=== PATIENT | male | born 1940 | race African-American/Black ===

== ENCOUNTER 2016-06-20 18:44 | Inpatient (IN) | payer MEDICARE ==
[~2016-06-20] VITALS: Ht 188 cm; Wt 89.0 kg
[~2016-06-20 18:44] MED LIST: ATOR20TA58 PO; ATOR40TA59 PO; CEPH500C PO; DILT240C32 PO; GUAI600T38 PO; INSU100I17 SQ; INSU100I27 SQ; ISOS60TA2 PO; Insulin Detemir SQ; LEVO500T38 PO; LEVO750T31 PO; METF500T4 PO; NITR0.4T6 SL; NPH,100V4 SQ; PROM118S2 PO
[2016-06-20] MEDS ORDERED: IV NORMAL SALINE 1000ML BAG 1,000 ML IV SCH (19:23)
--- NOTE | 2016-06-20 19:26 | ED.ADGEN ---
Past Medical History Past Medical History: Asthma, Bronchitis, CAD, COPD, Diabetes-Type II, High Cholesterol, Hypertension, Pneumonia Past Surgical History: Other Additional Past Surgical Histo: "lung surgery" Alcohol Use: None Drug Use: None Adult General Chief Complaint Chief Complaint: SHORTNESS OF BREATH HPI HPI Patient is a 75 year old male presents emergency department by EMS for increasing dyspnea. Patient reports he has had several "sick spells" over the last several mornings. Today after mormon he began to notice he was significantly more short of air. He denies any fevers or chills. Denies any nausea, vomiting, chest pain. He tells the last time he was on steroids was when he had his pneumonia approximately 6 months ago. He reports improvement based on the breathing treatment he received by EMS. Review of Systems Review of Systems Constitutional: Denies fever or chills. [] Eyes: Denies change in visual acuity. [] HENT: Denies nasal congestion or sore throat. [] Respiratory: Denies cough or shortness of breath. [] Cardiovascular: Denies chest pain or edema. [] GI: Denies abdominal pain, nausea, vomiting, bloody stools or diarrhea. [] : Denies dysuria. [] Musculoskeletal: Denies back pain or joint pain. [] Integument: Denies rash. [] Neurologic: Denies headache, focal weakness or sensory changes. [] Endocrine: Denies polyuria or polydipsia. [] Lymphatic: Denies swollen glands. [] Psychiatric: Denies depression or anxiety. [] Current Medications Current Medications Current Medications Medications (Trade) Dose Ordered Sig/Ann Marie Start Time Stop Time Status Last Admin Dose Admin Albuterol/ Ipratropium (Duoneb) 3 ml 1X ONCE 06/20/16 19:30 06/20/16 19:31 DC 06/20/16 19:48 3 ML Methylprednisolone Sodium Succinate (Solu-Medrol 125mg Vial) 125 mg 1X ONCE 06/20/16 19:30 06/20/16 19:31 DC 06/20/16 20:00 125 MG Ondansetron HCl (Zofran) 4 mg 1X ONCE 06/20/16 20:15 06/20/16 20:16 DC 06/20/16 20:30 4 MG Sodium Chloride (Iv Sodium Chloride 0.9% 1000ml Bag) 1,000 ml @ 1,000 mls/hr Q1H 06/20/16 19:23 06/20/16 20:22 DC 06/20/16 20:00 1,000 MLS/HR Allergies Allergies Allergies Coded Allergies Type Severity Reaction Last Updated Verified No Known Drug Allergies 10/31/13 No Physical Exam Physical Exam Constitutional: Well developed, well nourished, no acute distress, non-toxic appearance. [] HENT: Normocephalic, atraumatic, bilateral external ears normal, oropharynx moist, no oral exudates, nose normal. [] Eyes: PERRLA, EOMI, conjunctiva normal, no discharge. [] Neck: Normal range of motion, no tenderness, supple, no stridor. [] Cardiovascular:Heart rate regular rhythm, no murmur [] Lungs & Thorax: Bilateral breath sounds diminished and coarse [] Abdomen: Bowel sounds normal, soft, no tenderness, no masses, no pulsatile masses. [] Skin: Warm, dry, no erythema, no rash. [] Back: No tenderness, no CVA tenderness. [] Extremities: No tenderness, no cyanosis, no clubbing, ROM intact, no edema. [] Neurologic: Alert and oriented X 3, normal motor function, normal sensory function, no focal deficits noted. [] Psychologic: Affect normal, judgement normal, mood normal. [] Current Patient Data Vital Signs Vital Signs Date Time Temp Pulse Resp B/P Pulse Ox O2 Delivery O2 Flow Rate FiO2 06/20/16 20:17 106 156/111 93 Nasal Cannula 2 06/20/16 18:44 98.2 22 98.2 Lab Values Laboratory Tests Test 06/20/16 19:44 White Blood Count 5.9x10^3/uL (4.0-11.0) Red Blood Count 4.45x10^6/uL (4.30-5.70) Hemoglobin 12.3g/dL (13.0-17.5) L Hematocrit 38.1% (39.0-53.0) L Mean Corpuscular Volume 86fL (79-100) Mean Corpuscular Hemoglobin 28pg (25-35) Mean Corpuscular Hemoglobin Concent 32g/dL (31-37) Red Cell Distribution Width 14.5% (11.5-14.5) Platelet Count 268x10^3/uL (140-400) Neutrophils (%) (Auto) 75% (31-73) H Lymphocytes (%) (Auto) 16% (24-48) L Monocytes (%) (Auto) 7% (0-9) Eosinophils (%) (Auto) 1% (0-3) Basophils (%) (Auto) 1% (0-3) Neutrophils # (Auto) 4.5x10^3uL (1.8-7.7) Lymphocytes # (Auto) 0.9x10^3/uL (1.0-4.8) L Monocytes # (Auto) 0.4x10^3/uL (0.0-1.1) Eosinophils # (Auto) 0.1x10^3/uL (0.0-0.7) Basophils # (Auto) 0.0x10^3/uL (0.0-0.2) Laboratory Tests 06/20/16 19:44 EKG EKG [] Radiology/Procedures Radiology/Procedures Chest x-ray interpreted by me, no acute cardiopulmonary process. [] Course & Med Decision Making Course & Med Decision Making Pertinent Labs and Imaging studies reviewed. (See chart for details) Although the patient reports he is noticed some relief after his breathing treatments and his Solu-Medrol he does still require a couple liters of oxygen. He feels like he could benefit from a night in the hospital. I agree. He will be admitted to the hospitalist service with pulmonary hygiene and pulmonary consult. [] Dragon Disclaimer Dragon Disclaimer This electronic medical record was generated, in whole or in part, using a voice recognition dictation system. JESSICA HORNE MD Jun 20, 2016 19:26
[2016-06-20] MEDS ORDERED: methylPREDNISolone SOD SUCC PF 125 MG/2 ML VIAL. IV ONE (19:30)
[2016-06-20] MEDS ORDERED: IPRATRPIUM/ALBUTEROL 0.5/2.5MG 3 ML NEBU. NEB ONE (19:30)
[2016-06-20 19:52] LABS: BASO % 1 % (0-3); EOS % 1 % (0-3); HEMATOCRIT 38.1 % (39.0-53.0); HEMOGLOBIN 12.3 g/dL (13.0-17.5); LYMPH # 0.9 x10^3/uL (1.0-4.8); LYMPH % 16 % (24-48); MEAN CORPUSCULAR HEMOGLOBIN 28 pg (25-35); MEAN CORPUSCULAR HGB CONC 32 g/dL (31-37); MEAN CORPUSCULAR VOLUME 86 fL (79-100); MONO % 7 % (0-9); NEUT % 75 % (31-73); PLATELET COUNT 268 x10^3/uL (140-400); RED BLOOD COUNT 4.45 x10^6/uL (4.30-5.70); RED CELL DISTRIBUTION WIDTH 14.5 % (11.5-14.5); WHITE BLOOD COUNT 5.9 x10^3/uL (4.0-11.0)
[2016-06-20] MEDS ORDERED: ONDANSETRON PF 4 MG/2 ML VIAL. IV ONE (20:15)
[2016-06-20] MEDS ORDERED: ONDANSETRON PF 4 MG/2 ML VIAL. IV PRN (21:00)
--- NOTE | 2016-06-20 21:02 | ACF ---
Admission Forms Criteria GENERAL ADMISSION CRITERIA (Place 'X' for any and all applicable criteria): Admission is indicated for ANY ONE of the following: [ ]I. Hemodynamic instability as indicated by ANY ONE of the following(1)(2) (3)(4)(5): [ ]a) Vital sign abnormality not readily corrected by appropriate treatment within 12 to 24 hours indicated by ANY ONE of the following: [ ]i) Hypotension [ ]ii) Symptomatic Tachycardia unresponsive to treatment (eg , analgesia, fluids, sedation as indicated) [ ]iii) Orthostatic vital sign changes unresponsive to treatment (eg, fluids) [ ]b) Vital sign abnormality that is severe indicated by ANY ONE of the following: [ ]i) Inadequate perfusion indicated by ANY ONE of the following: [ ]1) Lactic acidosis (greater than 2 mmol/L) [ ]2) New abnormal capillary refill (greater than 3 seconds) [ ]3) Other metabolic acidosis (arterial pH less than 7.35) not otherwise explained [ ]4) Reduced urine output [ ]5) Altered mental status [ ]6) Myocardial Ischemia [ ]v) Mean arterial pressure[A] less than 60 mm Hg [ ]vi) Mean arterial pressure[A] less than 70 mm Hg after 30 minutes of appropriate treatment (eg, fluid resuscitation) [ ]vii) IV inotropic or vasopressor medication required to maintain adequate blood pressure or perfusion [ ]viii) Sustained heart rate greater than 120 beats per minute in adult or child 6 years or older[B]] [ ]II. Hypertension requiring inpatient treatment as indicated by ANY ONE of the following(6)(7)(8): [ ]a) SBP greater than 220 mm Hg or DBP greater than 120 mm Hg despite treatment [ ]b) SBP greater than 140 mm Hg or DBP greater than 100 mm Hg with evidence of acute end organ damage as indicated by ANY ONE of the following: [ ]i) Encephalopathy [ ]ii) Acute renal failure as indicated by new onset of ANY ONE of the following(9)(10)(11)(12)(13): [ ]1) A 3-fold rise in serum creatinine from baseline [ ]2) Serum creatinine greater than 4 mg/dL ( 354 micromoles/L) with acute rise greater than 0.5 mg/dL (44.2 micromoles/L) [ ]3) Reduction of more than 75% in estimated glomerular filtration rate from baseline [ ]4) Estimated glomerular filtration rate less than 35 mL/min/1.73m2 (0.59 mL/sec/1.73m2) in child up to 18 years of age [ ]5) Cessation of urine output indicated by ALL of the following: [ ]A. Adequate volume status [ ]B. Inadequate urine output as indicated by ANY ONE of the following: [ ]a. Urine output less than 0.3 mL/kg/hr for 24 hours [ ]b. Anuria (urine output less than 0.1 mL/kg/hr) for 12 hours [ ]iii) Aortic dissection [ ]iv) Myocardial ischemia [ ]v) Left ventricular heart failure [ ]vi) Retinal hemorrhage [ ]vii) Other significant finding [ ]c) Hypertension in child requiring inpatient treatment as indicated by ALL of the following(14)(15)(16): [ ]i) Outpatient treatment not effective, not available, or not appropriate [ ]ii) SBP or DBP greater than 95th percentile for age [ ]iii) Evidence of acute end organ damage as indicated by ANY ONE of the following: [ ]1) Altered mental status [ ]2) Acute renal failure as indicated by new onset of ANY ONE of the following(9)(10)(11)(12)(13): [ ]A. A 3-fold rise in serum creatinine from baseline [ ]B. Serum creatinine greater than 4 mg/dL (354 micromoles/L) with acute rise greater than 0.5 mg/dL (44.2 micromoles/L) [ ]C. Reduction of more than 75% in estimated glomerular filtration rate from baseline [ ]D. Estimated glomerular filtration rate less than 35 mL/min/1.73m2 (0.59 mL/sec/1.73m2)in child up to 18 years of age [ ]E. Cessation of urine output indicated by ALL of the following: [ ]a. Adequate volume status [ ]b. Inadequate urine output as indicated by ANY ONE of the following: [ ]1) Urine output less than 0.3 mL/kg/hr for 24 hours [ ]2) Anuria (urine output less than 0.1 mL/kg/hr) for 12 hours [ ]3) Severe headache [ ]4) Visual disturbance [ ]5) Retinal hemorrhage [ ]6) Other significant finding [ ]III. Acute cardiac or peripheral ischemia as indicated by ANY ONE of the following: [ ]a) Acute coronary syndrome(17)(18) [ ]b) Acute peripheral ischemia (eg, pulseless, cool, mottled, or cyanotic extremity)(19) [ ]IV. Cardiac arrhythmias or findings of immediate concern indicated by ANY ONE of the following(20)(21): [ ]a) Heart rhythms that are inherently dangerous or unstable indicated by ANY ONE of the following(22)(23)(24): [ ]i) Resuscitated ventricular fibrillation or cardiac arrest [ ]ii) Ventricular escape rhythm [ ]iii) Sustained ventricular tachycardia (30 seconds or more of ventricular rhythm at greater than 100 beats per minute) [ ]iv) Nonsustained ventricular tachycardia and ANY ONE of the following: [ ]1) Suspected cardiac ischemia as cause or consequence of ventricular tachycardia [ ]2) In setting of acute myocarditis [ ]b) Unstable cardiac conduction defects indicated by ANY ONE of the following(24)(25)(26): [ ]i) Type II second-degree atrioventricular block [ ]ii) Third-degree atrioventricular block [ ]iii) New-onset left bundle branch block with suspected myocardial ischemia [ ]c) Any heart rhythm and ANY ONE of the following(22)(23)(27)(28)( 29): [ ] i) Continuous long-term ECG monitoring needed (eg, initiation of drug requiring monitoring for more than 24 hours) [ ] ii) Patient has automatic implanted cardioverter defibrillator that is repeatedly firing, malfunctioning, or in need of immediate adjustment of settings beyond the scope of ambulatory or observation care. [ ]d) Heart rhythms of concern due to ANY ONE of the following: [ ]i) Hypotension [ ]ii) Respiratory distress [ ]iii) Association with other significant symptoms (eg, bradycardia with syncope or ongoing dizziness, supraventricular tachycardia with chest pain) (27)(28) (30) [ ] V. Severe heart failure as indicated by ANY ONE of the following ( 31)(32): [ ]a) Respiratory distress [ ]b) Hypotension [ ]c) Anasarca (refractory to outpatient therapy) [ ]d) Cardiac arrhythmias of immediate concern [ ]e) Myocardial ischemia [X]. Respiratory abnormalities, including ANY ONE of the following(33)(34) (35)(36): [ ]a) Respiratory rate greater than 30 breaths per minute unresponsive to treatment [A] [ ]b) New saturation of arterial oxygen less than 90% [ ]c) New partial pressure of carbon dioxide greater than 44 mm Hg ( 5.9 kPa) [X]d) Supplemental oxygen or respiratory treatments needed that are new or not performable at other levels of care [ ]e) New-onset cyanosis [ ]f) Inability to protect airway [ ]g) Chronic lung disease with severe deterioration (not responsive to emergency and observation care treatment as appropriate) as indicated by ANY ONE of the following(34)(36 ): [ ]i) SaO2 5% below baseline in patient with chronic hypoxemia [ ]ii) New requirement for supplemental oxygen to keep SaO2 at baseline or acceptable level [ ]iii) Required supplemental oxygen performable only in acute inpatient setting [ ]iv) Severe airflow or ventilation abnormalities [ ]v) Previously mobile patient unable to walk between rooms [ ]vi Inability to eat or sleep due to dyspnea [ ]vii) Rapid rate of exacerbation onset [ ]viii) Altered mental status ]VII. Severe airflow or ventilation abnormalities (not responsive to emergency and observation care treatment as appropriate) as indicated by ANY ONE of the following(33)(34)(35)(37): [ ]a) PCO2 greater than 42 mm Hg (5.6 kPa) and pH less than 7.35 (new ) [ ]b) Documented PCO2 increased more than 5 mm Hg (0.7 kPa) from disease baseline [ ]c) Airflow measurements [B] less than 60% of previous best or predicted (eg, peak expiratory flow rate less than 300 L/minute) despite intensive emergent treatment [C] [ ]d) Required respiratory treatments that are performable only in acute inpatient setting [ ]VIII. Impending or actual respiratory arrest ( Also use Respiratory Failure GRG for severe respiratory disease and long-term mechanical ventilation patients) [ ]IX. Neurologic abnormalities, including ANY ONE of the following: [ ]a) New findings that suggest ANY ONE of the following: [ ]i) CANCELLATION CLERK infection(38) [ ]ii) Cerebral bleeding, ischemia, or vasospasm(39)(40) [ ]iii) Increased intracranial pressure, hydrocephalus, or cerebral edema(41)(42)(43) [ ]iv) Spinal cord injury(44) [ ]b) Uncontrolled seizures(45) [ ]c) New-onset coma (eg, Eda coma scale score less than 9) or unexplained abnormal mental status (eg, Eda coma scale score less than 14) [D](41)(46)(47) [ ]X. New-onset severe neurologic findings requiring inpatient care; examples include(42)(48)(49): [ ]a) Papilledema [ ]b) Cerebral edema [ ]c) Mass effect on CT scan [ ]XI. Suspected acute intra-abdominal process with peritoneal signs, abdominal mass, or similar findings (50)(51)(52) [ ]XII. Severe physiologic disorder remaining after emergency or observation level care (as appropriate) as indicated by ANY ONE of the following (53): [ ]a) Significant dehydration [ ]b) Diabetic ketoacidosis [ ]c) Hyperglycemic hyperosmolar state (eg, osmolality greater than 320 mOsm/kg (mmol/kg) [ ]d) Hypoglycemia [ ]e) Other (new) acid-base disorder with pH less than 7.35 or greater than 7.5(54) [ ]f) Thyroid storm (55) [ ]g) Myxedema coma (55) [ ]XIII. Abdominal abnormalities with ANY ONE of the following(56)(57): [ ]a) Absent bowel sounds with complete ileus [ ]b) Signs of intestinal obstruction or peritonitis [E] [ ]c) Nausea and vomiting that cannot be controlled with outpatient or observation care [ ]XIV. Acute renal failure as indicated by new onset of ANY ONE of the following(9)(10)(11)(12)(13): [ ]a) A 3-fold rise in serum creatinine from baseline [ ]b) Serum creatinine greater than 4 mg/dL (354 micromoles/L) with acute rise greater than 0.5 mg/dL (44.2 micromoles/L) [ ]c) Reduction of more than 75% in estimated glomerular filtration rate from baseline [ ]d) Estimated glomerular filtration rate less than 35 mL/min/ 1.73m2 (0.59 mL/sec/1.73m2) in child up to 18 years of age [ ]e) Cessation of urine output indicated by ALL of the following: [ ]i) Adequate volume status [ ]ii) Inadequate urine output as indicated by ANY ONE of the following: [ ]1) Urine output less than 0.3 mL/kg/hr for 24 hours [ ]2) Anuria (urine output less than 0.1 mL/kg/hr) for 12 hours [ ]XV. Significant uremic complications as indicated by ANY ONE of the following(58)(59)(60): [ ]a) Outpatient therapy is ineffective or not feasible for ANY ONE of the following: [ ]i) Severe heart failure [ ]ii) Severehypertension [ ]iii) Pleural effusion [ ]iv) Pericarditis or pericardial effusion [ ]b) Cardiac arrhythmias of immediate concern [ ]c) Intractable nausea or vomiting [ ]d) Recurrent seizures [ ]e) Encephalopathy [ ]f) Bleeding abnormalities (eg, platelet dysfunction) with active (eg, gastrointestinal) bleeding [ ]g) Dialysis indicated before long-term access or ambulatory arrangements can be made [ ]h) Significant metabolic or electrolyte abnormalities (eg, severe acidosis or hyperkalemia) [ ]XVI. High fever or other high-risk infection situation as indicated by ANY ONE of the following(61)(62)(63)(64): [ ]a) Outpatient and observation care antimicrobial treatment unavailable, not effective, or not appropriate [ ]b) Documented bacteremia [ ]c) Temperature greater than 40.5 degrees C (104.9 degrees F) ( oral) [ ]d) Temperature greater than 39.5 degrees C (103.1 degrees F) ( oral) or less than 36 degrees C (96.8 degrees F) (rectal) that does not respond to e treatment and observation care [ ] XVII. Temperature less than 95 degrees F (35 degrees C)(rectal)(65) [ ] XVIII. Severe nutritional abnormalities as indicated by ALL of the following (66)(67): [ ]a) Inability to tolerate or establish sufficient oral or other enteral nutrition in outpatient setting [ ]b) Parenteral nutrition regimen need that must be implemented on inpatient basis [ ] XIX. Severe electrolyte abnormalities indicated by ALL of the following(68) (69)(70): [ ]a) Electrolytes and associated findings are not as expected for patient baseline or acceptable treatment effects. [ ]b) Severe abnormalities indicated by ANY ONE of the following: [ ]i) Sodium less than 130 mEq/L (mmol/L) (new) [ ]ii)Sodium less than 135 mEq/L (mmol/L) with ANY ONE of the following: [ ]1) Uncorrectable (to near normal or chronic baseline) after trial of outpatient and emergency treatment [ ]2) Altered mental status [ ]3) Seizures [ ]4) Severe medical etiology requiring inpatient management (eg, heart failure, hypovolemia) [ ]iii) Sodium greater than 155 mEq/L (mmol/L) [ ]iv) Sodium greater than 150 mEq/L (mmol/L) with ANY ONE of the following: [ ]1) Uncorrectable (to near normal or chronic baseline) with outpatient and emergency treatment [ ]2) Altered mental status [ ]3) Seizures [ ]4) Severe medical etiology (eg, hypovolemia, diabetes insipidus) [ ]v) Potassium less than 2.5 mEq/L (mmol/L) despite outpatient and emergency treatment [ ]vi) Potassium less than 3 mEq/L (mmol/L) with ANY ONE of the following: [ ]1) Weakness [ ]2) Cardiac abnormality (eg, arrhythmia, conduction disturbance) [ ]3) Cardiac ischemia [ ]4) Ileus [ ]5) Ongoing medical cause requiring inpatient management (eg, acute renal wasting or SIADH) [ ]6) Other severe symptoms [ ]vii) Potassium greater than 6.5 mEq/L (mmol/L) [ ]viii) Potassium greater than 5 mEq/L (mmol/L) with ANY ONE of the following: [ ]1) Uncorrectable (to near normal or chronic baseline) with outpatient and emergency treatment [ ]2) Severe ECG findings [F] [ ]3) Acute worsening of renal failure (creatinine greater than 2.5 mg/dL (221 micromoles/L) or significant elevation for age and size) [ ]4) Severe weakness [ ]5) Severe medical etiology (eg, hemolysis, infection, drug overdose) [ ]ix) Calcium less than 7 mg/dL (1.75 mmol/L) despite outpatient and emergency treatment (72) [ ]x) Calcium less than 8 mg/dL (2 mmol/L) with significant symptoms or findings; examples include(72): [ ]1) Altered mental status [ ]2) Muscle spasms [ ]3) Seizures [ ]4) Breathing difficulty [ ]5) Cardiac abnormality (eg, arrhythmia or conduction disturbance) [ ]xi) Calcium greater than 14 mg/dL (3.5 mmol/L)(72) [ ]xii) Calcium greater than 12 mg/dL (3 mmol/L) with ANY ONE of the following(72): [ ]1) Uncorrectable (to near normal or chronic baseline) with outpatient and emergency treatment [ ]2) Significant dehydration or hypovolemia as indicated by ALL of the following(70)(73)(74): [ ]A. Not resolved with initial treatments [ ]B. Clinically significant dehydration as indicated by ANY ONE of the following: [ ]a. Vomiting refractory to outpatient treatment (ie, precluding oral rehydration) [ ]b. Inability to drink [ ]c. Hypernatremia or other electrolyte abnormality unable to be corrected with outpatient and emergency treatment [ ]d. Failure to remain hydrated with outpatient therapy [ ]e. Reduced urine output [ ]f. Hypotension [ ]g. Serious cause for dehydration requiring acute hospitalization (eg, bowel obstruction, increased intracranial pressure, infectious cause) [ ]h. Child with ANY ONE of the following(75): [ ]1) Severe abdominal tenderness [ ]2) Adequate care not available at home [ ]3) Severe dehydration ( greater than 9% loss of body weight) [ ]4) Significant symptoms or findings; examples include: [ ]A. Altered mental status [ ]B. Cardiac abnormality (eg, arrhythmia, conduction disturbance) [ ]C. Malignant etiology requiring inpatient treatment [ ]xiii) Phosphorus less than 1 mg/dL (0.32 mmol/L) [ ]xiv) Phosphorus less than 1.5 mg/dL (0.48 mmol/L) with ANY ONE of the following: [ ]1) Patient unresponsive to outpatient and emergency treatment [ ]2) Significant symptoms or findings; examples include: [ ]A. Weakness [ ]B. Altered mental status [ ]C. Breathing difficulty [ ]D. Seizures [ ]E. Rhabdomyolysis [ ]xv) Phosphorus greater than 10 mg/dL (3.2 mmol/L) [ ]xvi) Phosphorus greater than 4.5 mg/dL (1.45 mmol/L) (new) with ANY ONE of the following: [ ]1) Severe medical etiology (eg, crush injury, acute renal failure) [ ]2) Associated hypocalcemia with significant findings; examples include: [ ]A. Neurologic symptoms [ ]B. Altered mental status [ ]C. Muscle spasms [ ]D. Seizures [ ]E. Breathing difficulty [ ]F. Cardiac abnormality (eg, arrhythmia, conduction disturbance) [ ]xvii) Magnesium less than 1 mg/dL (0.41 mmol/L) [ ]xviii) Magnesium less than 1.5 mg/dL (0.62 mmol/L) with ANY ONE of the following: [ ]1) Patient unresponsive to outpatient and emergency treatment [ ]2) Associated hypocalcemia with significant findings; examples include: [ ]A. Altered mental status [ ]B. Muscle spasms [ ]C. Seizures [ ]D. Breathing difficulty [ ]E. Cardiac abnormality (eg, arrhythmia , conduction disturbance) [ ]3) Associated hypokalemia (potassium less than 3 mEq/L (mmol/L)) with risk of arrhythmia [ ]xix) Magnesium greater than 4 mEq/L (2 mmol/L) [ ]xx) Magnesium greater than 2.5 mEq/L (1.25 mmol/L) with significant symptoms or findings; examples include: [ ]1) Weakness [ ]2) Altered mental status [ ]3) Cardiac abnormality (eg, arrhythmia, conduction disturbance) [ ]4) Breathing difficulty [ ]5) Severe medical etiology (eg, renal failure, hypovolemia) [ ]xxi) Uric acid greater than 20 mg/dL (1190 micromoles/L)(76) [ ]xxii) Uric acid greater than 8 mg/dL (476 micromoles/L) with significant symptoms or findings of tumor lysis syndrome; examples include(76): [ ]1) Creatinine greater than 1.5 times upper limit of normal [ ]2) Cardiac abnormality (eg, arrhythmia, conduction disturbance) [ ]3) Seizure [ ]XX. Acute blood loss causing significant abnormality as indicated by ANY ONE of the following(77)(78): [ ]a) Hemoglobin less than 10 g/dL (100 g/L) (not baseline) [ ]b) Hematocrit less than 30% (0.30) (not baseline) [ ]c) Repeat hematocrit decreased more than 2% (0.02) [ ]d) Uncontrolled bleeding [ ]XXI. Severe anemia indicated by ANY ONE of the following(78)(79): [ ]a) Altered mental status [ ]b) Chest pain [ ]c) Exertional dyspnea [ ]d) Syncope [ ]e) Other findings suggesting inadequate perfusion [ ]f) Treatment with transfusion or volume replacement is ineffective at resolving ANY ONE of the following [G]: [ ]i) Tachycardia for age [ ]ii) Orthostatic vital sign changes as indicated by ANY ONE of the following(80): [ ]1) Fall in SBP of 20 mm Hg or more 1 to 3 minutes after patient sits or stands from recumbent position [ ]2) Fall in DBP of 10 mm Hg or more 1 to 3 minutes after patient sits or stands from recumbent position [ ]XXII. High-risk low platelet count as indicated by ANY ONE of the following( 81)(82): [ ]a) Severe or life-threatening bleeding (eg, intracranial, major gastrointestinal, or extensive mucosal bleeding), with any reduced platelet count [ ]b) Platelet count less than 20,000/mm3 (20 x109/L) with any active bleeding [ ]c) Platelet count less than 10,000/mm3 (10 x109/L) with minor purpura or petechiae [ ]d) Platelet count less than 5000/mm3 (5 x109/L) [ ]e) Low platelet count with hemolytic anemia [ ]XXIII. Disseminated intravascular coagulation(77)(83) [ ]XXIV. Severe adverse drug or systemic toxin reaction requiring inpatient treatment; examples include(84)(85): [ ]a) Serotonin syndrome(86) [ ]b) Neuroleptic malignant syndrome(86) [ ]c) Cholinergic syndrome with severe symptoms (eg, bronchorrhea, weakness, mental status changes, seizures) [ ]d) Sympathetic syndrome with severe symptoms (eg, seizures, mental status changes, cardiac dysrhythmias) [ ]e) Anticholinergic syndrome [ ]XXV. Severe pain requiring acute inpatient management as indicated by ALL of the following (87)(88)(89): [ ]a) Continuous or frequent (eg, every 2 to 4 hours) parenteral analgesics required [H] [ ]b) Rapid improvement expected from treatment or acute intervention (eg, surgery, anesthesia procedure) [ ]XXVI.Severe behavioral health issues judged unmanageable at a lower level of care (eg, residential) in a patient who is ANY ONE of the following(91) [ ]a) Acutely suicidal [ ]b) A danger to self (eg, self-mutilating or suicidal behavior) [ ]c) A danger to others (eg, assaultive or homicidal behavior) [ ]d) Incapacitated because of grave disability (eg, inability to provide for self at lower level of care) (92) [ ]XXVII. Inpatient monitoring needed; examples include(1)(3)(87)(93)(94)(95)(96 ): [ ]a) Vital signs, neurologic signs, or vascular checks more frequently than every 4 hours [ ]b) Cardiac or respiratory monitoring beyond the scope (eg, over 24 hours) of observation care [ ]c) Pulmonary artery catheter monitoring [ ]d) Suspected compartment syndrome(97) (98) [ ]e) Cerebral bleeding, hydrocephalus, or vasospasm monitoring [ ]f) Increased intracranial pressure or cerebral edema monitoring [ ]g) monitoring [ ]XXVIII. Treatment requiring inpatient care; examples include: [ ]a) IV fluid to replace significant ongoing losses (greater than 3 L/m2 per day)(53) [ ]b) High concentration oxygen (greater than 40%)(33)(99)(100) [ ]c) Frequent respiratory therapy (more frequently than every 4 hours) to maintain airflow rates greater than 60% of baseline(33)(99)(100) [ ]d) Epidural analgesia(87) [ ]e) IV anticoagulation, vasoactive, or antiarrhythmic medication(19 )(23) [ ]f) Acute thrombolytics (generally require 24 hours of observation )(101)(102) [ ]XXIX. Emergency procedures needed; examples include: [ ]a) Emergency inpatient surgery [ ]b) Temporary pacemaker placement(103) [ ]c) Chest tube placement with active evacuation (eg, suction, drainage)(104) [ ]d) Emergent cardioversion(105) [ ]e) Emergent cardiac or vascular procedures (eg, cardiac catheterization, angioplasty) (17)(18) [ ]f) Emergent dialysis access placement and institution(10)(106) [ ]g) Emergent pericardiocentesis(107) [ ]h) Emergent plasmapheresis or leukapheresis(83) [ ]i) Emergent tracheostomy The original [email or web address] content created by [email or web address] has been revised. The portions of the content which have been revised are identified through the use of italic text or in bold, and [email or web address] has neither reviewed nor approved the modified material. All other unmodified content is copyright [employer]. Please see references footnoted in the original [facility] edition 2016 Admission Criteria Met?: Yes JOAQUÍN MOHAMUD Jun 20, 2016 21:02
[2016-06-20 21:22] LABS: CALCIUM 9.2 mg/dL (8.5-10.1); CREATININE 1.1 mg/dL (0.7-1.3); GFR 79.4; POTASSIUM 4.3 mmol/L (3.5-5.1)
[2016-06-21] MEDS ORDERED: ISOS120T2 PO (01:20)
[2016-06-21] MEDS ORDERED: FLUT1DIS IH (01:20)
[2016-06-21] MEDS ORDERED: LISI1TAB3 PO (01:20)
[2016-06-21] MEDS ORDERED: BUDE10.2 IH (01:20)
[2016-06-21] MEDS ORDERED: TIOT4MIS5 IH (01:20)
[2016-06-21] MEDS ORDERED: ATOR20TA58 PO (01:20)
[2016-06-21] MEDS ORDERED: CEPH250C PO (01:20)
[2016-06-21] MEDS ORDERED: IPRATRPIUM/ALBUTEROL 0.5/2.5MG 3 ML NEBU. NEB PRN (01:30)
[2016-06-21] MEDS ORDERED: ALBUTEROL SULFATE 2.5 MG/3 ML NEBU. NEB PRN ×2 (01:35→09:45)
[2016-06-21] MEDS ORDERED: GUAIFENESIN DM 200MG/20MG 10 ML SYRUP. PO PRN (02:30)
[2016-06-21] MEDS ORDERED: INFLUENZA VAX SCREEN BY RX. MC ONE (03:00)
[2016-06-21] MEDS ORDERED: PNEUMOCOCCAL VAX SCREEN BY RX. MC ONE (03:00)
[2016-06-21 03:30] VITALS: BP 139/66
--- NOTE | 2016-06-21 06:22 | EKG ---
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 RI6.01 Unconfirmed report Electronically Signed On 06-28-2016 10:24:45 CINDER BLOCK MAKER by Tom Bass
[2016-06-21] MEDS: IPRATRPIUM/ALBUTEROL 0.5/2.5MG 3 ML NEBU. NEB SCH ×4 (06:56→19:48)
[2016-06-21 07:00] VITALS: BP 140/92
[2016-06-21] MEDS ORDERED: DEXTROSE 50% 25 GM / 50ML DISP.SYRIN. IV PRN (07:45)
[2016-06-21] MEDS ORDERED: INSULIN ASPART 300 UNITS/3 ML INSULN.PEN SQ ONE (07:45)
--- NOTE | 2016-06-21 08:06 | RAD ---
Exam performed: Single view chest. History: Shortness of breath for one week. Date of service: 06/20/16 Comparison: 12/13/15. Single AP upright portable view chest findings: Mild hazy right basilar opacity and blunting of the right costophrenic angle appears similar to several previous radiographs dating back to 2012 and represents chronic pleural parenchymal scarring. Signs of volume loss seen in the right hemithorax. This probably a new linear opacity in the right lung base representing atelectasis. The lungs are otherwise clear. Bones are normal Impression: Chronic right pleural-parenchymal scarring. Linear opacity right lung base probably atelectasis. Minimal superimposed infiltrates would be difficult to exclude
[2016-06-21] MEDS: INSULIN ASPART 300 UNITS/3 ML INSULN.PEN SQ SCH ×4 (08:26→16:08)
[2016-06-21] MEDS ORDERED: FLU VACC QUAD 2016-17 (36MOS+)/PF 0.5 ML SYRINGE. VAX IM ONE (09:00)
[2016-06-21] MEDS ORDERED: ONDANSETRON PF 4 MG/2 ML VIAL. IV PRN (09:45)
[2016-06-21] MEDS ORDERED: HYDROCODONE/APAP 5/325MG TABLET. PO PRN (09:45)
[2016-06-21] MEDS ORDERED: hydrALAZINE 20 MG/ML VIAL. IVP PRN (09:45)
[2016-06-21] MEDS ORDERED: ACETAMINOPHEN 325 MG TABLET. PO PRN (09:45)
[2016-06-21] MEDS: GUAIFENESIN DM 200MG/20MG 10 ML SYRUP. PO PRN ×2 (10:26→21:19)
--- NOTE | 2016-06-21 10:46 | PDOC ---
Provider Note Provider Note dictated IVANA COX MD Jun 21, 2016 10:46
--- NOTE | 2016-06-21 10:56 | PDOC1 ---
History and Physical Past Medical History Cardiovascular: CAD, HTN, CO Pulmonary: COPD Endocrine: Diabetes Past Surgical History Past Surgical History: Other Family History Family History: No Significant, Hypertension Social History Smoke: 1 pack per day ALCOHOL: none Drugs: None Current Problem List Problem List Problems Medical Problems: (1) Acute exacerbation of chronic obstructive airways diseasedisease Status: Acute (2) CAD (coronary artery disease) Status: Acute (3) COPD exacerbation Status: Acute (4) DM II (diabetes mellitus, type II), controlled Status: Acute (5) Hypertension Status: Acute Current Medications Current Medications Current Medications Medications (Trade) Dose Ordered Sig/Ann Marie Start Time Stop Time Status Last Admin Dose Admin Acetaminophen (Tylenol) 325 mg PRN Q6HRS PRN 06/21/16 09:45 Acetaminophen/ Hydrocodone Bitart (Lortab 5/325) 1 tab PRN Q6HRS PRN 06/21/16 09:45 Albuterol Sulfate (Ventolin Neb Soln) 2.5 mg PRN Q4HRS PRN 06/21/16 09:45 Albuterol/ Ipratropium (Duoneb) 3 ml RTQID PRN 06/21/16 01:30 06/21/16 01:35 DC 06/21/16 01:31 3 ML Dextrose 12.5 gm PRN Q15MIN PRN 06/21/16 07:45 Guaifenesin (Robitussin Dm) 5 ml PRN Q6HRS PRN 06/21/16 10:15 06/21/16 10:26 5 ML Hydralazine HCl (Apresoline) 10 mg PRN Q4HRS PRN 06/21/16 09:45 Influenza Virus Vaccine Quadrival (Fluarix Quad [id number] Syringe) 0.5 ml ONCE ONCE 06/21/16 09:00 06/21/16 09:01 DC 06/21/16 08:12 0.5 ML Info (Do NOT chart on this placeholder) 1 each 1X ONCE 06/21/16 03:00 06/21/16 03:01 UNV Insulin Aspart (Novolog) 0-9 UNITS TIDWMEALS 06/21/16 08:00 06/21/16 08:26 9 UNITS Insulin Detemir (Levemir) 20 units QHS 06/21/16 21:00 Methylprednisolone Sodium Succinate (Solu-Medrol 40mg Vial) 40 mg Q8HRS 06/21/16 14:00 Methylprednisolone Sodium Succinate (Solu-Medrol 125mg Vial) 125 mg 1X ONCE 06/20/16 19:30 06/20/16 19:31 DC 06/20/16 20:00 125 MG Ondansetron HCl (Zofran) 4 mg PRN Q8HRS PRN 06/21/16 09:45 Pneumococcal Polyvalent Vaccine (Do NOT chart on this placeholder) 1 each 1X ONCE 06/21/16 03:00 06/21/16 03:01 UNV Sodium Chloride (Iv Sodium Chloride 0.9% 1000ml Bag) 1,000 ml @ 1,000 mls/hr Q1H 06/20/16 19:23 06/20/16 20:22 DC 06/20/16 20:00 1,000 MLS/HR Allergies Allergies Allergies Coded Allergies Type Severity Reaction Last Updated Verified No Known Drug Allergies 10/31/13 No ROS Review of System CONSTITUTIONAL: No fever or chills EYES: No recent changes SKIN: No rash or itching CARDIOVASCULAR: No chest pain, syncope, palpitations, or edema RESPIRATORY: SOB or cough GASTROINTESTINAL: No nausea, vomiting or abdominal pain NEUROLOGICAL: No headaches or weakness ENDOCRINE: No cold or heat intolerance GENITOURINARY: No urgency or frequency of urination MUSCULOSKELETAL: No back pain or joint pain LYMPHATICS: No enlarged lymph nodes PSYCHIATRIC: No anxiety or depression Physical Exam Physical Exam GEN.: No apparent distress. Alert and oriented. HEENT: Head is normocephalic, atraumatic NECK: Supple. no jvd LUNGS: decreased BS BILATERAL, MILD WHEEZING HEART: RRR, S1, S2 present. Peripheral pulses intact ABDOMEN: Soft, nontender. Positive bowel sounds. EXTREMITIES: Without any cyanosis. NEUROLOGIC: Normal speech, normal tone PSYCHIATRIC: Normal affect, normal mood. SKIN: No visible skin changes. Vitals Vitals Vital Signs Date Time Temp Pulse Resp B/P Pulse Ox O2 Delivery O2 Flow Rate FiO2 06/21/16 08:10 Nasal Cannula 3.0 06/21/16 07:00 98.2 104 18 140/92 100 98.2 Labs Labs Laboratory Tests Test 06/20/16 19:44 06/20/16 21:00 06/21/16 00:53 06/21/16 03:05 White Blood Count 5.9x10^3/uL (4.0-11.0) Red Blood Count 4.45x10^6/uL (4.30-5.70) Hemoglobin 12.3g/dL (13.0-17.5) Hematocrit 38.1% (39.0-53.0) Mean Corpuscular Volume 86fL (79-100) Mean Corpuscular Hemoglobin 28pg (25-35) Mean Corpuscular Hemoglobin Concent 32g/dL (31-37) Red Cell Distribution Width 14.5% (11.5-14.5) Platelet Count 268x10^3/uL (140-400) Neutrophils (%) (Auto) 75% (31-73) Lymphocytes (%) (Auto) 16% (24-48) Monocytes (%) (Auto) 7% (0-9) Eosinophils (%) (Auto) 1% (0-3) Basophils (%) (Auto) 1% (0-3) Neutrophils # (Auto) 4.5x10^3uL (1.8-7.7) Lymphocytes # (Auto) 0.9x10^3/uL (1.0-4.8) Monocytes # (Auto) 0.4x10^3/uL (0.0-1.1) Eosinophils # (Auto) 0.1x10^3/uL (0.0-0.7) Basophils # (Auto) 0.0x10^3/uL (0.0-0.2) Sodium Level 136mmol/L (136-145) Potassium Level 4.3mmol/L (3.5-5.1) Chloride Level 99mmol/L (98-107) Carbon Dioxide Level 26mmol/L (21-32) Anion Gap 11 (6-14) Blood Urea Nitrogen 17mg/dL (8-26) Creatinine 1.1mg/dL (0.7-1.3) Estimated GFR (Cockcroft-Gault) 79.4 Glucose Level 361mg/dL (70-99) Calcium Level 9.2mg/dL (8.5-10.1) Troponin I Quantitative < 0.017ng/mL (0.000-0.055) < 0.017ng/mL (0.000-0.055) KY-Pzo-I-Type Natriuretic Peptide 189pg/mL (0-124) Glucose (Fingerstick) 366mg/dL (70-99) Test 06/21/16 07:16 06/21/16 08:45 Glucose (Fingerstick) 543mg/dL (70-99) Troponin I Quantitative < 0.017ng/mL (0.000-0.055) Laboratory Tests Test 06/20/16 19:44 06/20/16 21:00 06/21/16 00:53 06/21/16 03:05 White Blood Count 5.9x10^3/uL (4.0-11.0) Red Blood Count 4.45x10^6/uL (4.30-5.70) Hemoglobin 12.3g/dL (13.0-17.5) Hematocrit 38.1% (39.0-53.0) Mean Corpuscular Volume 86fL (79-100) Mean Corpuscular Hemoglobin 28pg (25-35) Mean Corpuscular Hemoglobin Concent 32g/dL (31-37) Red Cell Distribution Width 14.5% (11.5-14.5) Platelet Count 268x10^3/uL (140-400) Neutrophils (%) (Auto) 75% (31-73) Lymphocytes (%) (Auto) 16% (24-48) Monocytes (%) (Auto) 7% (0-9) Eosinophils (%) (Auto) 1% (0-3) Basophils (%) (Auto) 1% (0-3) Neutrophils # (Auto) 4.5x10^3uL (1.8-7.7) Lymphocytes # (Auto) 0.9x10^3/uL (1.0-4.8) Monocytes # (Auto) 0.4x10^3/uL (0.0-1.1) Eosinophils # (Auto) 0.1x10^3/uL (0.0-0.7) Basophils # (Auto) 0.0x10^3/uL (0.0-0.2) Sodium Level 136mmol/L (136-145) Potassium Level 4.3mmol/L (3.5-5.1) Chloride Level 99mmol/L (98-107) Carbon Dioxide Level 26mmol/L (21-32) Anion Gap 11 (6-14) Blood Urea Nitrogen 17mg/dL (8-26) Creatinine 1.1mg/dL (0.7-1.3) Estimated GFR (Cockcroft-Gault) 79.4 Glucose Level 361mg/dL (70-99) Calcium Level 9.2mg/dL (8.5-10.1) Troponin I Quantitative < 0.017ng/mL (0.000-0.055) < 0.017ng/mL (0.000-0.055) RP-Uof-E-Type Natriuretic Peptide 189pg/mL (0-124) Glucose (Fingerstick) 366mg/dL (70-99) Test 06/21/16 07:16 06/21/16 08:45 Glucose (Fingerstick) 543mg/dL (70-99) Troponin I Quantitative < 0.017ng/mL (0.000-0.055) VTE Prophylaxis Ordered VTE Prophylaxis Devices: No VTE Pharmacological Prophylaxi: No VIKASH UMANZOR MD Jun 21, 2016 10:56
--- NOTE | 2016-06-21 10:58 | CONS ---
DATE OF CONSULTATION: ATTENDING PHYSICIAN: Dr. Gloria Elizondo. REASON FOR CONSULTATION: Dyspnea, persistent cough. HISTORY OF PRESENT ILLNESS: The patient is a 75-year-old male who has history of chronic obstructive airway disease and chronic respiratory failure. He has frequent hospitalizations for exacerbation. He was brought into the hospital with increasing cough which has been nonproductive. No fever, no chills, no chest pain. He has some shortness of breath and wheezing. The patient's chest x-ray reviewed, which shows chronic right pleural thickening, but no new infiltrates were seen. Consultation requested for further evaluation and management. PAST MEDICAL HISTORY: History of COPD, history of chronic bronchitis, history of type 2 diabetes, dyslipidemia, hypertension and pneumonia. PAST SURGICAL HISTORY: No recent surgery. ALLERGIES: None. CURRENT MEDICATIONS: Reviewed as listed in the MRAD including IV Solu-Medrol and DuoNeb. REVIEW OF SYSTEMS: Twelve-point system obtained. Pertinent positives discussed in history of present illness, otherwise noncontributory. All systems that were negative were reviewed as well. SOCIAL HISTORY: Has longer history of tobacco use, but no longer smokes cigarettes. PHYSICAL EXAMINATION: VITAL SIGNS: Blood pressure stable, afebrile, pulse ox 94-100% on 3 liters. HEENT: Sclerae nonicteric. NECK: Supple. LUNGS: With few rhonchi anteriorly. CARDIOVASCULAR: Regular rate and rhythm. ABDOMEN: Soft, obese. EXTREMITIES: With no pitting edema. LABORATORY DATA: Reviewed. White cell count 5.9, hemoglobin 12.3 and platelets are 268. His BUN is 17, creatinine 1.1. IMPRESSION: 1. Acute exacerbation of chronic obstructive pulmonary disease triggered by viral bronchitis. 2. Persistent cough, nonproductive. No fever. White cell count, normal. Suspect viral bronchitis. 3. Abnormal chest x-ray, chronic right lower lobe pleural thickening, no acute consolidation. RECOMMENDATIONS: 1. Continue with present bronchodilators. 2. Steroids. 3. Oxygen to keep saturation 92 and above. 4. Add cough suppressant. 5. We will follow along with you. IVANA COX MD DR: KARLOS/taylor JOB#: [id number] / [id number]
[2016-06-21 11:00] VITALS: BP 137/94
[2016-06-21] MEDS ORDERED: NICOTINE 21MG PATCH. TD PRN (11:00)
[2016-06-21] MEDS: methylPREDNISolone SOD SUCC PF 40 MG/ML VIAL. IV SCH ×2 (14:01→21:19)
[2016-06-21] MEDS ORDERED: NITROGLYCERIN SUBLINGUAL 0.4 MG BOTTLE OF 25. SL PRN (14:30)
[2016-06-21 15:00] VITALS: BP 144/61
[2016-06-21] MEDS: DILTIAZEM HCL 240 MG CAP.ER.24H PO SCH (16:18)
[2016-06-21] MEDS: ISOSORBIDE MONONITRATE ER 60 MG TAB.ER.24H PO SCH (16:18)
[2016-06-21] MEDS: LISINOPRIL 10 MG TABLET PO SCH (16:19)
--- NOTE | 2016-06-21 17:28 | HP ---
ADMIT DATE: 06/21/2016 CHIEF COMPLAINT: Cough, shortness of breath and sputum production. HISTORY OF PRESENT ILLNESS: A 75-year-old male patient admitted to the hospital with complaints of shortness of breath and cough symptoms presents for a few days and increasing sputum production is there for 2 days. He denies any fever, chills, nausea or vomiting; however, the patient was diagnosed with COPD in the past and is on chronic respiratory failure. He has been smoking; however, he is not able to take his home medications due to financial constraints. PAST MEDICAL HISTORY, REVIEW OF SYSTEMS, PHYSICAL EXAMINATION: Please see my electronic H and P. LABORATORY FINDINGS: WBC is 5.9, hemoglobin is 12.3, MCV is 86, platelets 268. BMP is essentially normal except for ____ of 143. PT/INR within normal range. IMAGING STUDIES: Chest x-ray, atelectasis seen and no acute findings noted. ASSESSMENT AND PLAN: 1. Chronic obstructive pulmonary disease exacerbation. 2. Hyperglycemia with type 2 diabetes mellitus. 3. Hyperlipidemia. PLAN: 1. The patient has been admitted for COPD exacerbation. Continue Solu-Medrol 40 t.i.d. and periodic nebulizations, Pulmonology has been consulted. 2. Continue Cardizem and Imdur. 3. Sliding scale insulin with meal dose insulin, continue 20 units of Levemir at bedtime. 4. Nicotine patch. 5. Supplemental oxygen as needed. 6. Prognosis is guarded. VIKASH UMANZOR MD DR: SONIA/taylor JOB#: [id number] / [id number] L[address]
[2016-06-21] MEDS: PROMETH/CODEINE 6.25/10MG 5 ML SYRUP. PO PRN (17:52)
[2016-06-21 19:00] VITALS: BP 101/48
[2016-06-21] MEDS: BUDESONIDE 0.5 MG/2 ML NEBU NEB SCH (19:49)
[2016-06-21] MEDS ORDERED: NON FORMULARY ITEM (Fluticasone/Salmeterol (Advair 100-50 Diskus) 1 PUFF) IH SCH (21:00)
[2016-06-21] MEDS ORDERED: NON FORMULARY ITEM (Budesonide/Formoterol Fumarate (Symbicort 160-4.5 Mcg Inhaler) 2 PUFF) IH SCH (21:00)
[2016-06-21] MEDS: ATORVASTATIN CALCIUM 40 MG TABLET. PO SCH (21:19)
[2016-06-21] MEDS: INSULIN DETEMIR 300 UNITS/3 ML INSULN.PEN. SQ SCH (21:22)
[2016-06-21 22:50] VITALS: BP 113/59
[2016-06-22 03:14] VITALS: BP 117/68
[2016-06-22 04:15] LABS: BASO % 0 % (0-3); EOS % 0 % (0-3); HEMATOCRIT 31.3 % (39.0-53.0); HEMOGLOBIN 10.1 g/dL (13.0-17.5); LYMPH # 0.2 x10^3/uL (1.0-4.8); LYMPH % 3 % (24-48); MEAN CORPUSCULAR HEMOGLOBIN 27 pg (25-35); MEAN CORPUSCULAR HGB CONC 32 g/dL (31-37); MEAN CORPUSCULAR VOLUME 85 fL (79-100); MONO % 4 % (0-9); NEUT % 93 % (31-73); PLATELET COUNT 208 x10^3/uL (140-400); RED BLOOD COUNT 3.69 x10^6/uL (4.30-5.70); RED CELL DISTRIBUTION WIDTH 14.5 % (11.5-14.5); WHITE BLOOD COUNT 7.2 x10^3/uL (4.0-11.0)
[2016-06-22 04:29] LABS: CALCIUM 8.3 mg/dL (8.5-10.1); CREATININE 1.3 mg/dL (0.7-1.3); GFR 65.5; POTASSIUM 5.3 mmol/L (3.5-5.1)
[2016-06-22 05:11] LABS: ANISOCYTOSIS SLIGHT; HYPOCHROMIA SLIGHT; PLT ESTIMATE ADEQUATE (ADEQUATE)
[2016-06-22] MEDS: GUAIFENESIN DM 200MG/20MG 10 ML SYRUP. PO PRN (05:38)
[2016-06-22] MEDS: methylPREDNISolone SOD SUCC PF 40 MG/ML VIAL. IV SCH ×2 (05:39→14:47)
[2016-06-22 07:00] VITALS: BP 117/55
[2016-06-22] MEDS: DILTIAZEM HCL 240 MG CAP.ER.24H PO SCH (07:52)
[2016-06-22] MEDS: ISOSORBIDE MONONITRATE ER 60 MG TAB.ER.24H PO SCH (07:52)
[2016-06-22] MEDS: LISINOPRIL 10 MG TABLET PO SCH (07:53)
[2016-06-22] MEDS: INSULIN ASPART 300 UNITS/3 ML INSULN.PEN SQ SCH ×6 (07:57→16:50)
[2016-06-22] MEDS: BUDESONIDE 0.5 MG/2 ML NEBU NEB SCH ×2 (08:00→20:09)
[2016-06-22] MEDS: IPRATRPIUM/ALBUTEROL 0.5/2.5MG 3 ML NEBU. NEB SCH ×4 (08:01→20:07)
[2016-06-22] MEDS ORDERED: TIOTROPIUM BROMIDE IH SCH (09:00)
--- NOTE | 2016-06-22 09:55 | PDOC ---
PULMONARY PROGRESS NOTES Subjective less soa Vitals Vital Signs Date Time Temp Pulse Resp B/P Pulse Ox O2 Delivery O2 Flow Rate FiO2 06/22/16 08:10 Nasal Cannula 4.0 06/22/16 08:03 97 06/22/16 07:53 71 117/55 06/22/16 07:00 99.1 16 99.1 ROS: No Nausea, No Chest Pain, No Abdominal Pain, No Increase Cough General: Alert, No acute distress Lungs: Wheezing, Other Cardiovascular: S2, Other Abdomen: Soft, Non-tender Neuro Exam: Alert Extremities: No Edema Skin: Warm Labs Laboratory Tests Test 06/20/16 19:44 06/20/16 21:00 06/21/16 00:53 06/21/16 03:05 White Blood Count 5.9x10^3/uL (4.0-11.0) Red Blood Count 4.45x10^6/uL (4.30-5.70) Hemoglobin 12.3g/dL (13.0-17.5) Hematocrit 38.1% (39.0-53.0) Mean Corpuscular Volume 86fL (79-100) Mean Corpuscular Hemoglobin 28pg (25-35) Mean Corpuscular Hemoglobin Concent 32g/dL (31-37) Red Cell Distribution Width 14.5% (11.5-14.5) Platelet Count 268x10^3/uL (140-400) Neutrophils (%) (Auto) 75% (31-73) Lymphocytes (%) (Auto) 16% (24-48) Monocytes (%) (Auto) 7% (0-9) Eosinophils (%) (Auto) 1% (0-3) Basophils (%) (Auto) 1% (0-3) Neutrophils # (Auto) 4.5x10^3uL (1.8-7.7) Lymphocytes # (Auto) 0.9x10^3/uL (1.0-4.8) Monocytes # (Auto) 0.4x10^3/uL (0.0-1.1) Eosinophils # (Auto) 0.1x10^3/uL (0.0-0.7) Basophils # (Auto) 0.0x10^3/uL (0.0-0.2) Sodium Level 136mmol/L (136-145) Potassium Level 4.3mmol/L (3.5-5.1) Chloride Level 99mmol/L (98-107) Carbon Dioxide Level 26mmol/L (21-32) Anion Gap 11 (6-14) Blood Urea Nitrogen 17mg/dL (8-26) Creatinine 1.1mg/dL (0.7-1.3) Estimated GFR (Cockcroft-Gault) 79.4 Glucose Level 361mg/dL (70-99) Calcium Level 9.2mg/dL (8.5-10.1) Troponin I Quantitative < 0.017ng/mL (0.000-0.055) < 0.017ng/mL (0.000-0.055) AI-Zbz-F-Type Natriuretic Peptide 189pg/mL (0-124) Glucose (Fingerstick) 366mg/dL (70-99) Test 06/21/16 07:16 06/21/16 08:45 06/21/16 10:29 06/21/16 16:02 Glucose (Fingerstick) 543mg/dL (70-99) 290mg/dL (70-99) 59mg/dL (70-99) Troponin I Quantitative < 0.017ng/mL (0.000-0.055) Test 06/21/16 16:36 06/21/16 20:24 06/22/16 03:45 06/22/16 07:12 Glucose (Fingerstick) 147mg/dL (70-99) 454mg/dL (70-99) 365mg/dL (70-99) White Blood Count 7.2x10^3/uL (4.0-11.0) Red Blood Count 3.69x10^6/uL (4.30-5.70) Hemoglobin 10.1g/dL (13.0-17.5) Hematocrit 31.3% (39.0-53.0) Mean Corpuscular Volume 85fL (79-100) Mean Corpuscular Hemoglobin 27pg (25-35) Mean Corpuscular Hemoglobin Concent 32g/dL (31-37) Red Cell Distribution Width 14.5% (11.5-14.5) Platelet Count 208x10^3/uL (140-400) Neutrophils (%) (Auto) 93% (31-73) Lymphocytes (%) (Auto) 3% (24-48) Monocytes (%) (Auto) 4% (0-9) Eosinophils (%) (Auto) 0% (0-3) Basophils (%) (Auto) 0% (0-3) Neutrophils # (Auto) 6.7x10^3uL (1.8-7.7) Lymphocytes # (Auto) 0.2x10^3/uL (1.0-4.8) Monocytes # (Auto) 0.3x10^3/uL (0.0-1.1) Eosinophils # (Auto) 0.0x10^3/uL (0.0-0.7) Basophils # (Auto) 0.0x10^3/uL (0.0-0.2) Segmented Neutrophils % 89% (35-66) Band Neutrophils % 6% (0-9) Lymphocytes % 3% (24-48) Monocytes % 2% (0-10) Platelet Estimate Adequate (ADEQUATE) Hypochromasia Slight Anisocytosis Slight Sodium Level 129mmol/L (136-145) Potassium Level 5.3mmol/L (3.5-5.1) Chloride Level 95mmol/L (98-107) Carbon Dioxide Level 27mmol/L (21-32) Anion Gap 7 (6-14) Blood Urea Nitrogen 30mg/dL (8-26) Creatinine 1.3mg/dL (0.7-1.3) Estimated GFR (Cockcroft-Gault) 65.5 Glucose Level 415mg/dL (70-99) Calcium Level 8.3mg/dL (8.5-10.1) Laboratory Tests Test 06/21/16 10:29 06/21/16 16:02 06/21/16 16:36 06/21/16 20:24 Glucose (Fingerstick) 290mg/dL (70-99) 59mg/dL (70-99) 147mg/dL (70-99) 454mg/dL (70-99) Test 06/22/16 03:45 06/22/16 07:12 White Blood Count 7.2x10^3/uL (4.0-11.0) Red Blood Count 3.69x10^6/uL (4.30-5.70) Hemoglobin 10.1g/dL (13.0-17.5) Hematocrit 31.3% (39.0-53.0) Mean Corpuscular Volume 85fL (79-100) Mean Corpuscular Hemoglobin 27pg (25-35) Mean Corpuscular Hemoglobin Concent 32g/dL (31-37) Red Cell Distribution Width 14.5% (11.5-14.5) Platelet Count 208x10^3/uL (140-400) Neutrophils (%) (Auto) 93% (31-73) Lymphocytes (%) (Auto) 3% (24-48) Monocytes (%) (Auto) 4% (0-9) Eosinophils (%) (Auto) 0% (0-3) Basophils (%) (Auto) 0% (0-3) Neutrophils # (Auto) 6.7x10^3uL (1.8-7.7) Lymphocytes # (Auto) 0.2x10^3/uL (1.0-4.8) Monocytes # (Auto) 0.3x10^3/uL (0.0-1.1) Eosinophils # (Auto) 0.0x10^3/uL (0.0-0.7) Basophils # (Auto) 0.0x10^3/uL (0.0-0.2) Segmented Neutrophils % 89% (35-66) Band Neutrophils % 6% (0-9) Lymphocytes % 3% (24-48) Monocytes % 2% (0-10) Platelet Estimate Adequate (ADEQUATE) Hypochromasia Slight Anisocytosis Slight Sodium Level 129mmol/L (136-145) Potassium Level 5.3mmol/L (3.5-5.1) Chloride Level 95mmol/L (98-107) Carbon Dioxide Level 27mmol/L (21-32) Anion Gap 7 (6-14) Blood Urea Nitrogen 30mg/dL (8-26) Creatinine 1.3mg/dL (0.7-1.3) Estimated GFR (Cockcroft-Gault) 65.5 Glucose Level 415mg/dL (70-99) Calcium Level 8.3mg/dL (8.5-10.1) Glucose (Fingerstick) 365mg/dL (70-99) Medications Active Scripts Medications Dose Route/Sig Days Date Category Advair 100-50 Diskus (Fluticasone/Salmeterol) 1 Each Disk.w.dev 1 Puff IH BID 06/21/16 Reported Spiriva Respimat (Tiotropium [place]) 4 Gm Mist.inhal 2.5 Gm IH DAILY 06/21/16 Reported Symbicort 160-4.5 Mcg Inhaler (Budesonide/Formoterol Fumarate) 10.2 Gm Hfa.aer.ad 2 Puff IH BID 06/21/16 Reported Atorvastatin Calcium 20 Mg Tablet 20 Mg PO HS 06/21/16 Reported Cephalexin 250 Mg Capsule 1 Cap PO Q8HRS 06/21/16 Reported Lisinopril-Hctz 10-12.5 Mg Tab (Lisinopril/Hydrochlorothiazide) 1 Each Tablet 1 Tab PO DAILY 06/21/16 Reported Isosorbide Mononitrate Er (Isosorbide Mononitrate) 120 Mg Tab.er.24h 120 Mg PO DAILY 06/21/16 Reported Levemir Flextouch (Insulin Detemir) 100 Unit/1 Ml Insuln.pen 20 Units SQ QHS 30 11/24/15 Rx Novolog Flexpen (Insulin Aspart) 100 Unit/1 Ml Insuln.pen 10 Units SQ TIDAC 30 11/24/15 Rx Novolin N (Nph, Human Insulin Isophane) 100 Unit/1 Ml Vial 0 SQ 11/18/15 Reported Promethazine-Codeine Syrup (Promethazine Hcl/Codeine) 118 Ml Syrup 5 Ml PO Q4-6HRS 11/18/15 Reported Diltiazem 24HR Cd (Diltiazem Hcl) 240 Mg Cap.er.24h 240 Mg PO DAILY 11/18/15 Reported NITROGLYCERIN SubLingual (Nitroglycerin) 0.4 Mg Tab.subl 0.4 Mg SL PRN Q5MIN PRN 11/18/15 Reported Atorvastatin Calcium 40 Mg Tablet 40 Mg PO HS 11/18/15 Reported Impression . IMPRESSION: 1. Acute exacerbation of chronic obstructive pulmonary disease triggered by viral bronchitis. 2. Persistent cough, nonproductive. No fever. White cell count, normal. Suspect viral bronchitis. 3. Abnormal chest x-ray, chronic right lower lobe pleural thickening, no acute consolidation. Plan . Improving home soon 1. Continue with present bronchodilators. 2. Steroids. 3. Oxygen to keep saturation 92 and above. 4. Add cough suppressant. DOUGIE RIVAS MD Jun 22, 2016 09:55
--- NOTE | 2016-06-22 10:06 | PDOC ---
PROGRESS NOTES Chief Complaint Chief Complaint a/p 1. Chronic obstructive pulmonary disease exacerbation. 2. Hyperglycemia with type 2 diabetes mellitus. 3. Hyperlipidemia. 4. Hyperkalemia 5. HTN 6. Nicotine use Plan IV solumderol DuoNeb Kayexalate today SSI for hyperglycemia Levemir nicotine patch Pulmicort. [place] for pain control Pulmonology following History of Present Illness History of Present Illness no chest pain no fever no chills no acute events. Vitals Vitals Vital Signs Date Time Temp Pulse Resp B/P Pulse Ox O2 Delivery O2 Flow Rate FiO2 06/22/16 08:10 Nasal Cannula 4.0 06/22/16 08:03 97 06/22/16 07:53 71 117/55 06/22/16 07:00 99.1 16 99.1 Physical Exam General: Alert, Oriented X3 Heart: Normal S1, Normal S2 Lungs: Wheezing, Other Abdomen: Normal bowel sounds Extremities: No clubbing Labs LABS Laboratory Tests Test 06/21/16 10:29 06/21/16 16:02 06/21/16 16:36 06/21/16 20:24 Glucose (Fingerstick) 290mg/dL (70-99) 59mg/dL (70-99) 147mg/dL (70-99) 454mg/dL (70-99) Test 06/22/16 03:45 06/22/16 07:12 White Blood Count 7.2x10^3/uL (4.0-11.0) Red Blood Count 3.69x10^6/uL (4.30-5.70) Hemoglobin 10.1g/dL (13.0-17.5) Hematocrit 31.3% (39.0-53.0) Mean Corpuscular Volume 85fL (79-100) Mean Corpuscular Hemoglobin 27pg (25-35) Mean Corpuscular Hemoglobin Concent 32g/dL (31-37) Red Cell Distribution Width 14.5% (11.5-14.5) Platelet Count 208x10^3/uL (140-400) Neutrophils (%) (Auto) 93% (31-73) Lymphocytes (%) (Auto) 3% (24-48) Monocytes (%) (Auto) 4% (0-9) Eosinophils (%) (Auto) 0% (0-3) Basophils (%) (Auto) 0% (0-3) Neutrophils # (Auto) 6.7x10^3uL (1.8-7.7) Lymphocytes # (Auto) 0.2x10^3/uL (1.0-4.8) Monocytes # (Auto) 0.3x10^3/uL (0.0-1.1) Eosinophils # (Auto) 0.0x10^3/uL (0.0-0.7) Basophils # (Auto) 0.0x10^3/uL (0.0-0.2) Segmented Neutrophils % 89% (35-66) Band Neutrophils % 6% (0-9) Lymphocytes % 3% (24-48) Monocytes % 2% (0-10) Platelet Estimate Adequate (ADEQUATE) Hypochromasia Slight Anisocytosis Slight Sodium Level 129mmol/L (136-145) Potassium Level 5.3mmol/L (3.5-5.1) Chloride Level 95mmol/L (98-107) Carbon Dioxide Level 27mmol/L (21-32) Anion Gap 7 (6-14) Blood Urea Nitrogen 30mg/dL (8-26) Creatinine 1.3mg/dL (0.7-1.3) Estimated GFR (Cockcroft-Gault) 65.5 Glucose Level 415mg/dL (70-99) Calcium Level 8.3mg/dL (8.5-10.1) Glucose (Fingerstick) 365mg/dL (70-99) Assessment and Plan Assessmemt and Plan Problems Medical Problems: (1) Acute exacerbation of chronic obstructive airways diseasedisease Status: Acute (2) CAD (coronary artery disease) Status: Acute (3) COPD exacerbation Status: Acute (4) DM II (diabetes mellitus, type II), controlled Status: Acute (5) Hypertension Status: Acute Problems: Comment Review of Relevant I have reviewed the following items valerie (where applicable) has been applied. Labs Laboratory Tests Test 06/20/16 19:44 06/20/16 21:00 06/21/16 00:53 06/21/16 03:05 White Blood Count 5.9x10^3/uL (4.0-11.0) Red Blood Count 4.45x10^6/uL (4.30-5.70) Hemoglobin 12.3g/dL (13.0-17.5) Hematocrit 38.1% (39.0-53.0) Mean Corpuscular Volume 86fL (79-100) Mean Corpuscular Hemoglobin 28pg (25-35) Mean Corpuscular Hemoglobin Concent 32g/dL (31-37) Red Cell Distribution Width 14.5% (11.5-14.5) Platelet Count 268x10^3/uL (140-400) Neutrophils (%) (Auto) 75% (31-73) Lymphocytes (%) (Auto) 16% (24-48) Monocytes (%) (Auto) 7% (0-9) Eosinophils (%) (Auto) 1% (0-3) Basophils (%) (Auto) 1% (0-3) Neutrophils # (Auto) 4.5x10^3uL (1.8-7.7) Lymphocytes # (Auto) 0.9x10^3/uL (1.0-4.8) Monocytes # (Auto) 0.4x10^3/uL (0.0-1.1) Eosinophils # (Auto) 0.1x10^3/uL (0.0-0.7) Basophils # (Auto) 0.0x10^3/uL (0.0-0.2) Sodium Level 136mmol/L (136-145) Potassium Level 4.3mmol/L (3.5-5.1) Chloride Level 99mmol/L (98-107) Carbon Dioxide Level 26mmol/L (21-32) Anion Gap 11 (6-14) Blood Urea Nitrogen 17mg/dL (8-26) Creatinine 1.1mg/dL (0.7-1.3) Estimated GFR (Cockcroft-Gault) 79.4 Glucose Level 361mg/dL (70-99) Calcium Level 9.2mg/dL (8.5-10.1) Troponin I Quantitative < 0.017ng/mL (0.000-0.055) < 0.017ng/mL (0.000-0.055) [id number]-Type Natriuretic Peptide 189pg/mL (0-124) Glucose (Fingerstick) 366mg/dL (70-99) Test 06/21/16 07:16 06/21/16 08:45 06/21/16 10:29 06/21/16 16:02 Glucose (Fingerstick) 543mg/dL (70-99) 290mg/dL (70-99) 59mg/dL (70-99) Troponin I Quantitative < 0.017ng/mL (0.000-0.055) Test 06/21/16 16:36 06/21/16 20:24 06/22/16 03:45 06/22/16 07:12 Glucose (Fingerstick) 147mg/dL (70-99) 454mg/dL (70-99) 365mg/dL (70-99) White Blood Count 7.2x10^3/uL (4.0-11.0) Red Blood Count 3.69x10^6/uL (4.30-5.70) Hemoglobin 10.1g/dL (13.0-17.5) Hematocrit 31.3% (39.0-53.0) Mean Corpuscular Volume 85fL (79-100) Mean Corpuscular Hemoglobin 27pg (25-35) Mean Corpuscular Hemoglobin Concent 32g/dL (31-37) Red Cell Distribution Width 14.5% (11.5-14.5) Platelet Count 208x10^3/uL (140-400) Neutrophils (%) (Auto) 93% (31-73) Lymphocytes (%) (Auto) 3% (24-48) Monocytes (%) (Auto) 4% (0-9) Eosinophils (%) (Auto) 0% (0-3) Basophils (%) (Auto) 0% (0-3) Neutrophils # (Auto) 6.7x10^3uL (1.8-7.7) Lymphocytes # (Auto) 0.2x10^3/uL (1.0-4.8) Monocytes # (Auto) 0.3x10^3/uL (0.0-1.1) Eosinophils # (Auto) 0.0x10^3/uL (0.0-0.7) Basophils # (Auto) 0.0x10^3/uL (0.0-0.2) Segmented Neutrophils % 89% (35-66) Band Neutrophils % 6% (0-9) Lymphocytes % 3% (24-48) Monocytes % 2% (0-10) Platelet Estimate Adequate (ADEQUATE) Hypochromasia Slight Anisocytosis Slight Sodium Level 129mmol/L (136-145) Potassium Level 5.3mmol/L (3.5-5.1) Chloride Level 95mmol/L (98-107) Carbon Dioxide Level 27mmol/L (21-32) Anion Gap 7 (6-14) Blood Urea Nitrogen 30mg/dL (8-26) Creatinine 1.3mg/dL (0.7-1.3) Estimated GFR (Cockcroft-Gault) 65.5 Glucose Level 415mg/dL (70-99) Calcium Level 8.3mg/dL (8.5-10.1) Laboratory Tests Test 06/21/16 10:29 06/21/16 16:02 06/21/16 16:36 06/21/16 20:24 Glucose (Fingerstick) 290mg/dL (70-99) 59mg/dL (70-99) 147mg/dL (70-99) 454mg/dL (70-99) Test 06/22/16 03:45 06/22/16 07:12 White Blood Count 7.2x10^3/uL (4.0-11.0) Red Blood Count 3.69x10^6/uL (4.30-5.70) Hemoglobin 10.1g/dL (13.0-17.5) Hematocrit 31.3% (39.0-53.0) Mean Corpuscular Volume 85fL (79-100) Mean Corpuscular Hemoglobin 27pg (25-35) Mean Corpuscular Hemoglobin Concent 32g/dL (31-37) Red Cell Distribution Width 14.5% (11.5-14.5) Platelet Count 208x10^3/uL (140-400) Neutrophils (%) (Auto) 93% (31-73) Lymphocytes (%) (Auto) 3% (24-48) Monocytes (%) (Auto) 4% (0-9) Eosinophils (%) (Auto) 0% (0-3) Basophils (%) (Auto) 0% (0-3) Neutrophils # (Auto) 6.7x10^3uL (1.8-7.7) Lymphocytes # (Auto) 0.2x10^3/uL (1.0-4.8) Monocytes # (Auto) 0.3x10^3/uL (0.0-1.1) Eosinophils # (Auto) 0.0x10^3/uL (0.0-0.7) Basophils # (Auto) 0.0x10^3/uL (0.0-0.2) Segmented Neutrophils % 89% (35-66) Band Neutrophils % 6% (0-9) Lymphocytes % 3% (24-48) Monocytes % 2% (0-10) Platelet Estimate Adequate (ADEQUATE) Hypochromasia Slight Anisocytosis Slight Sodium Level 129mmol/L (136-145) Potassium Level 5.3mmol/L (3.5-5.1) Chloride Level 95mmol/L (98-107) Carbon Dioxide Level 27mmol/L (21-32) Anion Gap 7 (6-14) Blood Urea Nitrogen 30mg/dL (8-26) Creatinine 1.3mg/dL (0.7-1.3) Estimated GFR (Cockcroft-Gault) 65.5 Glucose Level 415mg/dL (70-99) Calcium Level 8.3mg/dL (8.5-10.1) Glucose (Fingerstick) 365mg/dL (70-99) Medications Current Medications Sodium Chloride (Iv Sodium Chloride 0.9% 1000ml Bag) 1,000 ml @ 1,000 mls/hr Q1H IV Last administered on 06/20/16 20:00; Start 06/20/16 at 19:23; Stop at 20:22; Status DC Albuterol/ Ipratropium (Duoneb) 3 ml 1X ONCE NEB Last administered on 19:48; Start 06/20/16 at 19:30; Stop 06/20/16 at 19:31; Status DC Methylprednisolone Sodium Succinate (Solu-Medrol 125mg Vial) 125 mg 1X ONCE IV Last administered on 06/20/16 20:00; Start 06/20/16 at 19:30; Stop 06/20/16 at 19:31; Status DC Ondansetron HCl (Zofran) 4 mg 1X ONCE IV Last administered on 06/20/16 20:30 ; Start 06/20/16 at 20:15; Stop 06/20/16 at 20:16; Status DC Ondansetron HCl (Zofran) 4 mg PRN Q8HRS PRN IV NAUSEA/VOMITING; Start 06/20/16 at 21:00; Stop 06/21/16 at 09:46; Status DC Albuterol/ Ipratropium (Duoneb) 3 ml RTQID NEB Last administered on 06/21/16 11:08; Start 06/21/16 at 08:00; Stop 06/21/16 at 14:25; Status DC Albuterol/ Ipratropium (Duoneb) 3 ml RTQID PRN NEB SHORTNESS OF BREATH Last administered on 06/21/16 01:31; Start 06/21/16 at 01:30; Stop 06/21/16 at 01:35 ; Status DC Albuterol Sulfate (Ventolin Neb Soln) 2.5 mg PRN QID PRN NEB SHORTNESS OF BREATH; Start 06/21/16 at 01:35; Stop 06/21/16 at 15:04; Status DC Guaifenesin (Robitussin Dm) 5 ml PRN Q4HRS PRN PO COUGH Last administered on 04:49; Start 06/21/16 at 02:30; Stop 06/21/16 at 10:12; Status DC Info (Do NOT chart on this placeholder) 1 each 1X ONCE MC ; Start 06/21/16 at 03:00; Stop 06/21/16 at 03:01; Status UNV Pneumococcal Polyvalent Vaccine (Do NOT chart on this placeholder) 1 each 1X ONCE MC ; Start 06/21/16 at 03:00; Stop 06/21/16 at 03:01; Status UNV Influenza Virus Vaccine Quadrival (Fluarix Quad 0637-3555 Syringe) 0.5 ml ONCE ONCE VAX IM Last administered on 06/21/16 08:12; Start 06/21/16 at 09:00; Stop 06/21/16 at 09:01; Status DC Insulin Detemir (Levemir) 20 units QHS SQ Last administered on 06/21/16 21:22 ; Start 06/21/16 at 21:00 Insulin Aspart (Novolog) 12 units 1X ONCE SQ Last administered on 06/21/16 08 :17; Start 06/21/16 at 07:45; Stop 06/21/16 at 07:46; Status DC Insulin Aspart (Novolog) 0-9 UNITS TIDWMEALS SQ Last administered on 06/22/16 07:57; Start 06/21/16 at 08:00 Dextrose 12.5 gm PRN Q15MIN PRN IV SEE COMMENTS; Start 06/21/16 at 07:45 Acetaminophen (Tylenol) 325 mg PRN Q6HRS PRN PO MILD PAIN / TEMP; Start at 09:45 Acetaminophen/ Hydrocodone Bitart (Lortab 5/325) 1 tab PRN Q6HRS PRN PO MODERATE TO SEVERE PAIN Last administered on 06/21/16 17:53; Start 06/21/16 at 09:45 Hydralazine HCl (Apresoline) 10 mg PRN Q4HRS PRN IVP ELEVATED BP, SEE COMMENTS ; Start 06/21/16 at 09:45 Ondansetron HCl (Zofran) 4 mg PRN Q8HRS PRN IV NAUSEA/VOMITING; Start 06/21/16 at 09:45 Albuterol Sulfate (Ventolin Neb Soln) 2.5 mg PRN Q4HRS PRN NEB SHORTNESS OF BREATH; Start 06/21/16 at 09:45 Methylprednisolone Sodium Succinate (Solu-Medrol 40mg Vial) 40 mg Q8HRS IV Last administered on 06/22/16 05:39; Start 06/21/16 at 14:00 Guaifenesin (Robitussin Dm) 5 ml PRN Q6HRS PRN PO COUGH 1ST CHOICE Last administered on 06/22/16 05:38; Start 06/21/16 at 10:15 Nicotine (Nicoderm Cq 21mg) 1 patch PRN DAILY PRN TD SMOKING CESSATION; Start 06/21/16 at 11:00 Atorvastatin Calcium (Lipitor) 40 mg HS PO Last administered on 06/21/16 21:19 ; Start 06/21/16 at 21:00 Diltiazem HCl (Cardizem 24hr Cd) 240 mg DAILY PO Last administered on 16:18; Start 06/21/16 at 15:00 Insulin Aspart (Novolog) 10 units TIDAC SQ Last administered on 06/22/16 07:57 ; Start 06/21/16 at 16:30 Nitroglycerin (Nitrostat) 0.4 mg PRN Q5MIN PRN SL CHEST PAIN; Start 06/21/16 at 14:30 Promethazine HCl/ Codeine (Phenergan With Codeine) 5 ml BID PRN PO cough 2ND CHOICE Last administered on 06/21/16 17:52; Start 06/21/16 at 14:30 Non-Formulary Medication 2 puff BID IH ; Start 06/21/16 at 21:00; Status UNV Non-Formulary Medication 1 puff BID IH ; Start 06/21/16 at 21:00; Status UNV Isosorbide Mononitrate (Imdur) 120 mg DAILY PO Last administered on 06/22/16 07:52; Start 06/21/16 at 15:00 Lisinopril (Prinivil) 10 mg DAILY PO Last administered on 06/22/16 07:53; Start 06/21/16 at 15:00 Non-Formulary Medication 2.5 gm DAILY IH ; Start 06/22/16 at 09:00; Status UNV Budesonide (Pulmicort) 0.5 mg RTBID NEB Last administered on 06/21/16 19:49; Start 06/21/16 at 20:00 Albuterol/ Ipratropium (Duoneb) 3 ml RTQID NEB Last administered on 06/22/16 08:01; Start 06/21/16 at 16:00 Active Scripts Active Levemir Flextouch (Insulin Detemir) 100 Unit/1 Ml Insuln.pen 20 Units SQ QHS 30 Days Novolog Flexpen (Insulin Aspart) 100 Unit/1 Ml Insuln.pen 10 Units SQ TIDAC 30 Days Reported Advair 100-50 Diskus (Fluticasone/Salmeterol) 1 Each Disk.w.dev 1 Puff IH BID Spiriva Respimat (Tiotropium [place]) 4 Gm Mist.inhal 2.5 Gm IH DAILY Symbicort 160-4.5 Mcg Inhaler (Budesonide/Formoterol Fumarate) 10.2 Gm Hfa.aer.ad 2 Puff IH BID Atorvastatin Calcium 20 Mg Tablet 20 Mg PO HS Cephalexin 250 Mg Capsule 1 Cap PO Q8HRS Lisinopril-Hctz 10-12.5 Mg Tab (Lisinopril/Hydrochlorothiazide) 1 Each Tablet 1 Tab PO DAILY Isosorbide Mononitrate Er (Isosorbide Mononitrate) 120 Mg Tab.er.24h 120 Mg PO DAILY Novolin N (Nph, Human Insulin Isophane) 100 Unit/1 Ml Vial 0 SQ Promethazine-Codeine Syrup (Promethazine Hcl/Codeine) 118 Ml Syrup 5 Ml PO Q4- 6HRS Diltiazem 24HR Cd (Diltiazem Hcl) 240 Mg Cap.er.24h 240 Mg PO DAILY NITROGLYCERIN SubLingual (Nitroglycerin) 0.4 Mg Tab.subl 0.4 Mg SL PRN Q5MIN PRN Atorvastatin Calcium 40 Mg Tablet 40 Mg PO HS Vitals/I & O Vital Sign - Last 24 Hours 06/21/16 06/21/16 06/21/16 06/21/16 11:00 11:08 14:59 15:00 Temp 99.4 102.9 99.4 102.9 Pulse 109 118 Resp 22 22 B/P 137/94 144/61 Pulse Ox 100 97 96 O2 Delivery Nasal Cannula Room Air Room Air Nasal Cannula O2 Flow Rate 3.0 3.0 06/21/16 06/21/16 06/21/16 06/21/16 16:18 16:18 16:19 17:53 Pulse 118 118 118 B/P 144/61 144/61 144/61 O2 Delivery Nasal Cannula 06/21/16 06/21/16 06/21/16 06/21/16 18:54 19:00 19:51 19:54 Temp 98.6 98.6 Pulse 83 Resp 18 B/P 101/48 Pulse Ox 96 96 93 93 O2 Delivery Nasal Cannula Nasal Cannula Nasal Cannula Nasal Cannula O2 Flow Rate 3.0 2.0 3.0 3.0 06/21/16 06/21/16 06/22/16 06/22/16 20:00 22:50 03:14 07:00 Temp 98.0 96.2 99.1 98.0 96.2 99.1 Pulse 60 86 71 Resp 18 20 16 B/P 113/59 117/68 117/55 Pulse Ox 96 97 93 O2 Delivery Nasal Cannula Room Air Nasal Cannula Nasal Cannula O2 Flow Rate 3.0 3.0 06/22/16 06/22/16 06/22/16 06/22/16 07:52 07:52 07:53 08:01 Pulse 71 71 71 B/P 117/55 117/55 117/55 Pulse Ox 97 O2 Delivery Nasal Cannula O2 Flow Rate 3.0 06/22/16 06/22/16 08:03 08:10 Pulse Ox 97 O2 Delivery Nasal Cannula Nasal Cannula O2 Flow Rate 3.0 4.0 Intake and Output 06/21/16 06/21/16 06/22/16 15:00 23:00 07:00 Intake Total 580 ml 520 ml 0 ml Output Total 1100 ml 400 ml Balance -520 ml 120 ml 0 ml VIKASH UMANZOR MD Jun 22, 2016 10:06
[2016-06-22] MEDS ORDERED: SODIUM POLYSTYRENE SULFONATE 15 GM/60 ML ORAL.SUSP. PO ONE (10:15)
[2016-06-22 10:59] VITALS: BP 100/49
[2016-06-22 15:02] VITALS: BP 114/58
[2016-06-22] MEDS ORDERED: INSULIN ASPART 300 UNITS/3 ML INSULN.PEN SQ ONE ×2 (17:00→21:00)
[2016-06-22] MEDS: PREDNISONE 20 MG TABLET PO SCH (17:00)
[2016-06-22] MEDS: PROMETH/CODEINE 6.25/10MG 5 ML SYRUP. PO PRN (17:56)
[2016-06-22 19:50] VITALS: BP 119/57
[2016-06-22] MEDS: ATORVASTATIN CALCIUM 40 MG TABLET. PO SCH (20:57)
[2016-06-22] MEDS: INSULIN DETEMIR 300 UNITS/3 ML INSULN.PEN. SQ SCH (21:02)
[2016-06-22 23:28] VITALS: BP 115/60
[2016-06-23 03:32] VITALS: BP 136/78
[2016-06-23] MEDS: GUAIFENESIN DM 200MG/20MG 10 ML SYRUP. PO PRN ×2 (05:48→20:45)
[2016-06-23 07:20] LABS: CALCIUM 8.2 mg/dL (8.5-10.1); CREATININE 1.2 mg/dL (0.7-1.3); GFR 71.8; POTASSIUM 4.4 mmol/L (3.5-5.1)
[2016-06-23] MEDS: BUDESONIDE 0.5 MG/2 ML NEBU NEB SCH ×2 (07:28→19:20)
[2016-06-23] MEDS: IPRATRPIUM/ALBUTEROL 0.5/2.5MG 3 ML NEBU. NEB SCH ×4 (07:28→19:19)
[2016-06-23 07:32] LABS: BASO % 0 % (0-3); EOS % 0 % (0-3); HEMATOCRIT 32.7 % (39.0-53.0); HEMOGLOBIN 10.4 g/dL (13.0-17.5); LYMPH # 0.5 x10^3/uL (1.0-4.8); LYMPH % 5 % (24-48); MEAN CORPUSCULAR HEMOGLOBIN 27 pg (25-35); MEAN CORPUSCULAR HGB CONC 32 g/dL (31-37); MEAN CORPUSCULAR VOLUME 85 fL (79-100); MONO % 6 % (0-9); NEUT % 89 % (31-73); PLATELET COUNT 226 x10^3/uL (140-400); RED BLOOD COUNT 3.82 x10^6/uL (4.30-5.70); RED CELL DISTRIBUTION WIDTH 14.8 % (11.5-14.5); WHITE BLOOD COUNT 10.3 x10^3/uL (4.0-11.0)
[2016-06-23 07:50] VITALS: BP 140/78
[2016-06-23] MEDS: PREDNISONE 20 MG TABLET PO SCH (08:02)
[2016-06-23] MEDS: DILTIAZEM HCL 240 MG CAP.ER.24H PO SCH (08:03)
[2016-06-23] MEDS: ISOSORBIDE MONONITRATE ER 60 MG TAB.ER.24H PO SCH (08:03)
[2016-06-23] MEDS: LISINOPRIL 10 MG TABLET PO SCH (08:03)
[2016-06-23] MEDS: INSULIN ASPART 300 UNITS/3 ML INSULN.PEN SQ SCH ×6 (08:06→17:23)
[2016-06-23 11:01] VITALS: BP 111/52
--- NOTE | 2016-06-23 11:51 | PDOC ---
PROGRESS NOTES Chief Complaint Chief Complaint A/P 1. Chronic obstructive pulmonary disease exacerbation. 2. Hyperglycemia with type 2 diabetes mellitus. 3. Hyperlipidemia. 4. Hyperkalemia resolved. 5. HTN 6. Nicotine use Plan PO steroids, DuoNeb SSI for hyperglycemia Levemir nicotine patch Pulmicort. [place] for pain control Pulmonology following History of Present Illness History of Present Illness no chest pain no fever no chills no acute events. Vitals Vitals Vital Signs Date Time Temp Pulse Resp B/P Pulse Ox O2 Delivery O2 Flow Rate FiO2 06/23/16 11:25 Room Air 06/23/16 11:01 98.3 61 18 111/52 98 3.0 98.3 Physical Exam General: Alert, Oriented X3 Heart: Normal S1, Normal S2 Lungs: Wheezing, Other Abdomen: Normal bowel sounds Extremities: No clubbing Labs LABS Laboratory Tests Test 06/22/16 16:09 06/22/16 20:41 06/23/16 06:00 06/23/16 07:52 Glucose (Fingerstick) 380mg/dL (70-99) 401mg/dL (70-99) 210mg/dL (70-99) White Blood Count 10.3x10^3/uL (4.0-11.0) Red Blood Count 3.82x10^6/uL (4.30-5.70) Hemoglobin 10.4g/dL (13.0-17.5) Hematocrit 32.7% (39.0-53.0) Mean Corpuscular Volume 85fL (79-100) Mean Corpuscular Hemoglobin 27pg (25-35) Mean Corpuscular Hemoglobin Concent 32g/dL (31-37) Red Cell Distribution Width 14.8% (11.5-14.5) Platelet Count 226x10^3/uL (140-400) Neutrophils (%) (Auto) 89% (31-73) Lymphocytes (%) (Auto) 5% (24-48) Monocytes (%) (Auto) 6% (0-9) Eosinophils (%) (Auto) 0% (0-3) Basophils (%) (Auto) 0% (0-3) Neutrophils # (Auto) 9.2x10^3uL (1.8-7.7) Lymphocytes # (Auto) 0.5x10^3/uL (1.0-4.8) Monocytes # (Auto) 0.6x10^3/uL (0.0-1.1) Eosinophils # (Auto) 0.0x10^3/uL (0.0-0.7) Basophils # (Auto) 0.0x10^3/uL (0.0-0.2) Sodium Level 135mmol/L (136-145) Potassium Level 4.4mmol/L (3.5-5.1) Chloride Level 99mmol/L (98-107) Carbon Dioxide Level 26mmol/L (21-32) Anion Gap 10 (6-14) Blood Urea Nitrogen 34mg/dL (8-26) Creatinine 1.2mg/dL (0.7-1.3) Estimated GFR (Cockcroft-Gault) 71.8 Glucose Level 235mg/dL (70-99) Calcium Level 8.2mg/dL (8.5-10.1) Assessment and Plan Assessmemt and Plan Problems Medical Problems: (1) Acute exacerbation of chronic obstructive airways diseasedisease Status: Acute (2) CAD (coronary artery disease) Status: Acute (3) COPD exacerbation Status: Acute (4) DM II (diabetes mellitus, type II), controlled Status: Acute (5) Hypertension Status: Acute Problems: Comment Review of Relevant I have reviewed the following items valerie (where applicable) has been applied. Labs Laboratory Tests Test 06/21/16 16:02 06/21/16 16:36 06/21/16 20:24 06/22/16 03:45 Glucose (Fingerstick) 59mg/dL (70-99) 147mg/dL (70-99) 454mg/dL (70-99) White Blood Count 7.2x10^3/uL (4.0-11.0) Red Blood Count 3.69x10^6/uL (4.30-5.70) Hemoglobin 10.1g/dL (13.0-17.5) Hematocrit 31.3% (39.0-53.0) Mean Corpuscular Volume 85fL (79-100) Mean Corpuscular Hemoglobin 27pg (25-35) Mean Corpuscular Hemoglobin Concent 32g/dL (31-37) Red Cell Distribution Width 14.5% (11.5-14.5) Platelet Count 208x10^3/uL (140-400) Neutrophils (%) (Auto) 93% (31-73) Lymphocytes (%) (Auto) 3% (24-48) Monocytes (%) (Auto) 4% (0-9) Eosinophils (%) (Auto) 0% (0-3) Basophils (%) (Auto) 0% (0-3) Neutrophils # (Auto) 6.7x10^3uL (1.8-7.7) Lymphocytes # (Auto) 0.2x10^3/uL (1.0-4.8) Monocytes # (Auto) 0.3x10^3/uL (0.0-1.1) Eosinophils # (Auto) 0.0x10^3/uL (0.0-0.7) Basophils # (Auto) 0.0x10^3/uL (0.0-0.2) Segmented Neutrophils % 89% (35-66) Band Neutrophils % 6% (0-9) Lymphocytes % 3% (24-48) Monocytes % 2% (0-10) Platelet Estimate Adequate (ADEQUATE) Hypochromasia Slight Anisocytosis Slight Sodium Level 129mmol/L (136-145) Potassium Level 5.3mmol/L (3.5-5.1) Chloride Level 95mmol/L (98-107) Carbon Dioxide Level 27mmol/L (21-32) Anion Gap 7 (6-14) Blood Urea Nitrogen 30mg/dL (8-26) Creatinine 1.3mg/dL (0.7-1.3) Estimated GFR (Cockcroft-Gault) 65.5 Glucose Level 415mg/dL (70-99) Calcium Level 8.3mg/dL (8.5-10.1) Test 06/22/16 07:12 06/22/16 10:52 06/22/16 16:09 06/22/16 20:41 Glucose (Fingerstick) 365mg/dL (70-99) 468mg/dL (70-99) 380mg/dL (70-99) 401mg/dL (70-99) Test 06/23/16 06:00 06/23/16 07:52 White Blood Count 10.3x10^3/uL (4.0-11.0) Red Blood Count 3.82x10^6/uL (4.30-5.70) Hemoglobin 10.4g/dL (13.0-17.5) Hematocrit 32.7% (39.0-53.0) Mean Corpuscular Volume 85fL (79-100) Mean Corpuscular Hemoglobin 27pg (25-35) Mean Corpuscular Hemoglobin Concent 32g/dL (31-37) Red Cell Distribution Width 14.8% (11.5-14.5) Platelet Count 226x10^3/uL (140-400) Neutrophils (%) (Auto) 89% (31-73) Lymphocytes (%) (Auto) 5% (24-48) Monocytes (%) (Auto) 6% (0-9) Eosinophils (%) (Auto) 0% (0-3) Basophils (%) (Auto) 0% (0-3) Neutrophils # (Auto) 9.2x10^3uL (1.8-7.7) Lymphocytes # (Auto) 0.5x10^3/uL (1.0-4.8) Monocytes # (Auto) 0.6x10^3/uL (0.0-1.1) Eosinophils # (Auto) 0.0x10^3/uL (0.0-0.7) Basophils # (Auto) 0.0x10^3/uL (0.0-0.2) Sodium Level 135mmol/L (136-145) Potassium Level 4.4mmol/L (3.5-5.1) Chloride Level 99mmol/L (98-107) Carbon Dioxide Level 26mmol/L (21-32) Anion Gap 10 (6-14) Blood Urea Nitrogen 34mg/dL (8-26) Creatinine 1.2mg/dL (0.7-1.3) Estimated GFR (Cockcroft-Gault) 71.8 Glucose Level 235mg/dL (70-99) Calcium Level 8.2mg/dL (8.5-10.1) Glucose (Fingerstick) 210mg/dL (70-99) Laboratory Tests Test 06/22/16 16:09 06/22/16 20:41 06/23/16 06:00 06/23/16 07:52 Glucose (Fingerstick) 380mg/dL (70-99) 401mg/dL (70-99) 210mg/dL (70-99) White Blood Count 10.3x10^3/uL (4.0-11.0) Red Blood Count 3.82x10^6/uL (4.30-5.70) Hemoglobin 10.4g/dL (13.0-17.5) Hematocrit 32.7% (39.0-53.0) Mean Corpuscular Volume 85fL (79-100) Mean Corpuscular Hemoglobin 27pg (25-35) Mean Corpuscular Hemoglobin Concent 32g/dL (31-37) Red Cell Distribution Width 14.8% (11.5-14.5) Platelet Count 226x10^3/uL (140-400) Neutrophils (%) (Auto) 89% (31-73) Lymphocytes (%) (Auto) 5% (24-48) Monocytes (%) (Auto) 6% (0-9) Eosinophils (%) (Auto) 0% (0-3) Basophils (%) (Auto) 0% (0-3) Neutrophils # (Auto) 9.2x10^3uL (1.8-7.7) Lymphocytes # (Auto) 0.5x10^3/uL (1.0-4.8) Monocytes # (Auto) 0.6x10^3/uL (0.0-1.1) Eosinophils # (Auto) 0.0x10^3/uL (0.0-0.7) Basophils # (Auto) 0.0x10^3/uL (0.0-0.2) Sodium Level 135mmol/L (136-145) Potassium Level 4.4mmol/L (3.5-5.1) Chloride Level 99mmol/L (98-107) Carbon Dioxide Level 26mmol/L (21-32) Anion Gap 10 (6-14) Blood Urea Nitrogen 34mg/dL (8-26) Creatinine 1.2mg/dL (0.7-1.3) Estimated GFR (Cockcroft-Gault) 71.8 Glucose Level 235mg/dL (70-99) Calcium Level 8.2mg/dL (8.5-10.1) Medications Current Medications Sodium Chloride (Iv Sodium Chloride 0.9% 1000ml Bag) 1,000 ml @ 1,000 mls/hr Q1H IV Last administered on 06/20/16 20:00; Start 06/20/16 at 19:23; Stop at 20:22; Status DC Albuterol/ Ipratropium (Duoneb) 3 ml 1X ONCE NEB Last administered on 19:48; Start 06/20/16 at 19:30; Stop 06/20/16 at 19:31; Status DC Methylprednisolone Sodium Succinate (Solu-Medrol 125mg Vial) 125 mg 1X ONCE IV Last administered on 06/20/16 20:00; Start 06/20/16 at 19:30; Stop 06/20/16 at 19:31; Status DC Ondansetron HCl (Zofran) 4 mg 1X ONCE IV Last administered on 06/20/16 20:30 ; Start 06/20/16 at 20:15; Stop 06/20/16 at 20:16; Status DC Ondansetron HCl (Zofran) 4 mg PRN Q8HRS PRN IV NAUSEA/VOMITING; Start 06/20/16 at 21:00; Stop 06/21/16 at 09:46; Status DC Albuterol/ Ipratropium (Duoneb) 3 ml RTQID NEB Last administered on 06/21/16 11:08; Start 06/21/16 at 08:00; Stop 06/21/16 at 14:25; Status DC Albuterol/ Ipratropium (Duoneb) 3 ml RTQID PRN NEB SHORTNESS OF BREATH Last administered on 06/21/16 01:31; Start 06/21/16 at 01:30; Stop 06/21/16 at 01:35 ; Status DC Albuterol Sulfate (Ventolin Neb Soln) 2.5 mg PRN QID PRN NEB SHORTNESS OF BREATH; Start 06/21/16 at 01:35; Stop 06/21/16 at 15:04; Status DC Guaifenesin (Robitussin Dm) 5 ml PRN Q4HRS PRN PO COUGH Last administered on 04:49; Start 06/21/16 at 02:30; Stop 06/21/16 at 10:12; Status DC Info (Do NOT chart on this placeholder) 1 each 1X ONCE MC ; Start 06/21/16 at 03:00; Stop 06/21/16 at 03:01; Status UNV Pneumococcal Polyvalent Vaccine (Do NOT chart on this placeholder) 1 each 1X ONCE MC ; Start 06/21/16 at 03:00; Stop 06/21/16 at 03:01; Status UNV Influenza Virus Vaccine Quadrival (Fluarix Quad [id number] Syringe) 0.5 ml ONCE ONCE VAX IM Last administered on 06/21/16 08:12; Start 06/21/16 at 09:00; Stop 06/21/16 at 09:01; Status DC Insulin Detemir (Levemir) 20 units QHS SQ Last administered on 06/22/16 21:02 ; Start 06/21/16 at 21:00 Insulin Aspart (Novolog) 12 units 1X ONCE SQ Last administered on 06/21/16 08 :17; Start 06/21/16 at 07:45; Stop 06/21/16 at 07:46; Status DC Insulin Aspart (Novolog) 0-9 UNITS TIDWMEALS SQ Last administered on 06/23/16 08:06; Start 06/21/16 at 08:00 Dextrose 12.5 gm PRN Q15MIN PRN IV SEE COMMENTS; Start 06/21/16 at 07:45 Acetaminophen (Tylenol) 325 mg PRN Q6HRS PRN PO MILD PAIN / TEMP; Start at 09:45 Acetaminophen/ Hydrocodone Bitart (Lortab 5/325) 1 tab PRN Q6HRS PRN PO MODERATE TO SEVERE PAIN Last administered on 06/21/16 17:53; Start 06/21/16 at 09:45 Hydralazine HCl (Apresoline) 10 mg PRN Q4HRS PRN IVP ELEVATED BP, SEE COMMENTS ; Start 06/21/16 at 09:45 Ondansetron HCl (Zofran) 4 mg PRN Q8HRS PRN IV NAUSEA/VOMITING; Start 06/21/16 at 09:45 Albuterol Sulfate (Ventolin Neb Soln) 2.5 mg PRN Q4HRS PRN NEB SHORTNESS OF BREATH; Start 06/21/16 at 09:45 Methylprednisolone Sodium Succinate (Solu-Medrol 40mg Vial) 40 mg Q8HRS IV Last administered on 06/22/16 14:47; Start 06/21/16 at 14:00; Stop 06/22/16 at 16:29; Status DC Guaifenesin (Robitussin Dm) 5 ml PRN Q6HRS PRN PO COUGH 1ST CHOICE Last administered on 06/23/16 05:48; Start 06/21/16 at 10:15 Nicotine (Nicoderm Cq 21mg) 1 patch PRN DAILY PRN TD SMOKING CESSATION; Start 06/21/16 at 11:00 Atorvastatin Calcium (Lipitor) 40 mg HS PO Last administered on 06/22/16 20:57 ; Start 06/21/16 at 21:00 Diltiazem HCl (Cardizem 24hr Cd) 240 mg DAILY PO Last administered on 06/23/16 08:03; Start 06/21/16 at 15:00 Insulin Aspart (Novolog) 10 units TIDAC SQ Last administered on 06/23/16 08:07 ; Start 06/21/16 at 16:30 Nitroglycerin (Nitrostat) 0.4 mg PRN Q5MIN PRN SL CHEST PAIN; Start 06/21/16 at 14:30 Promethazine HCl/ Codeine (Phenergan With Codeine) 5 ml BID PRN PO cough 2ND CHOICE Last administered on 06/22/16 17:56; Start 06/21/16 at 14:30 Non-Formulary Medication 2 puff BID IH ; Start 06/21/16 at 21:00; Status UNV Non-Formulary Medication 1 puff BID IH ; Start 06/21/16 at 21:00; Status UNV Isosorbide Mononitrate (Imdur) 120 mg DAILY PO Last administered on 06/23/16 08 :03; Start 06/21/16 at 15:00 Lisinopril (Prinivil) 10 mg DAILY PO Last administered on 06/23/16 08:03; Start 06/21/16 at 15:00 Non-Formulary Medication 2.5 gm DAILY IH ; Start 06/22/16 at 09:00; Status UNV Budesonide (Pulmicort) 0.5 mg RTBID NEB Last administered on 06/23/16 07:28; Start 06/21/16 at 20:00 Albuterol/ Ipratropium (Duoneb) 3 ml RTQID NEB Last administered on 06/23/16 11 :24; Start 06/21/16 at 16:00 Sodium Polystyrene Sulfonate (Kayexalate) 15 gm 1X ONCE PO Last administered on 06/22/16 10:15; Start 06/22/16 at 10:15; Stop 06/22/16 at 10:16; Status DC Prednisone (Prednisone) 40 mg DAILY PO Last administered on 06/23/16 08:02; Start 06/22/16 at 17:00; Stop 06/25/16 at 08:59 Prednisone (Prednisone) 30 mg DAILY PO ; Start 06/25/16 at 09:00; Stop 06/28/16 at 08:59 Prednisone (Prednisone) 20 mg DAILY PO ; Start 06/28/16 at 09:00; Stop 07/01/16 at 08:59 Prednisone (Prednisone) 10 mg DAILY PO ; Start 07/01/16 at 09:00; Stop 07/04/16 at 08:59 Prednisone (Prednisone) 5 mg DAILY PO ; Start 07/04/16 at 09:00; Stop 07/07/16 at 08:59 Insulin Aspart (Novolog) 14 units 1X ONCE SQ Last administered on 06/22/16 17 :02; Start 06/22/16 at 17:00; Stop 06/22/16 at 17:01; Status DC Insulin Aspart (Novolog) 10 units 1X ONCE SQ Last administered on 06/22/16 21 :02; Start 06/22/16 at 21:00; Stop 06/22/16 at 21:01; Status DC Active Scripts Active Levemir Flextouch (Insulin Detemir) 100 Unit/1 Ml Insuln.pen 20 Units SQ QHS 30 Days Novolog Flexpen (Insulin Aspart) 100 Unit/1 Ml Insuln.pen 10 Units SQ TIDAC 30 Days Reported Advair 100-50 Diskus (Fluticasone/Salmeterol) 1 Each Disk.w.dev 1 Puff IH BID Spiriva Respimat (Tiotropium [place]) 4 Gm Mist.inhal 2.5 Gm IH DAILY Symbicort 160-4.5 Mcg Inhaler (Budesonide/Formoterol Fumarate) 10.2 Gm Hfa.aer.ad 2 Puff IH BID Atorvastatin Calcium 20 Mg Tablet 20 Mg PO HS Cephalexin 250 Mg Capsule 1 Cap PO Q8HRS Lisinopril-Hctz 10-12.5 Mg Tab (Lisinopril/Hydrochlorothiazide) 1 Each Tablet 1 Tab PO DAILY Isosorbide Mononitrate Er (Isosorbide Mononitrate) 120 Mg Tab.er.24h 120 Mg PO DAILY Novolin N (Nph, Human Insulin Isophane) 100 Unit/1 Ml Vial 0 SQ Promethazine-Codeine Syrup (Promethazine Hcl/Codeine) 118 Ml Syrup 5 Ml PO Q4- 6HRS Diltiazem 24HR Cd (Diltiazem Hcl) 240 Mg Cap.er.24h 240 Mg PO DAILY NITROGLYCERIN SubLingual (Nitroglycerin) 0.4 Mg Tab.subl 0.4 Mg SL PRN Q5MIN PRN Atorvastatin Calcium 40 Mg Tablet 40 Mg PO HS Vitals/I & O Vital Sign - Last 24 Hours 06/22/16 06/22/16 06/22/16 06/22/16 15:02 16:30 19:50 19:57 Temp 98.1 98.7 98.1 98.7 Pulse 67 73 Resp 18 20 B/P 114/58 119/57 Pulse Ox 98 91 O2 Delivery Nasal Cannula Room Air Nasal Cannula Nasal Cannula O2 Flow Rate 3.0 3.0 3.0 06/22/16 06/22/16 06/23/16 06/23/16 20:10 23:28 03:32 07:29 Temp 98.0 98.4 98.0 98.4 Pulse 77 75 Resp 22 20 B/P 115/60 136/78 Pulse Ox 91 90 94 97 O2 Delivery Nasal Cannula Nasal Cannula Nasal Cannula Room Air O2 Flow Rate 3.0 3.0 3.0 06/23/16 06/23/16 06/23/16 06/23/16 07:50 08:00 08:03 08:03 Temp 98.3 98.3 Pulse 65 65 65 Resp 17 B/P 140/78 140/78 140/78 Pulse Ox 92 O2 Delivery Nasal Cannula Nasal Cannula O2 Flow Rate 3.0 3.0 06/23/16 06/23/16 06/23/16 08:03 11:01 11:25 Temp 98.3 98.3 Pulse 65 61 Resp 18 B/P 140/78 111/52 Pulse Ox 98 O2 Delivery Nasal Cannula Room Air O2 Flow Rate 3.0 Intake and Output 06/22/16 06/22/16 06/23/16 15:00 23:00 07:00 Intake Total 2700 ml 360 ml Balance 2700 ml 360 ml VIKASH UMANZOR MD Jun 23, 2016 11:51
[2016-06-23 15:00] VITALS: BP 105/70
--- NOTE | 2016-06-23 17:28 | PDOC ---
PULMONARY PROGRESS NOTES Subjective less soa Vitals Vital Signs Date Time Temp Pulse Resp B/P Pulse Ox O2 Delivery O2 Flow Rate FiO2 06/23/16 15:34 Room Air 06/23/16 15:00 97.5 62 20 105/70 95 3.0 97.5 ROS: No Nausea, No Chest Pain, No Abdominal Pain, No Increase Cough General: Alert, No acute distress Lungs: Wheezing, Other Cardiovascular: S2, Other Abdomen: Soft, Non-tender Neuro Exam: Alert Extremities: No Edema Skin: Warm Labs Laboratory Tests Test 06/21/16 20:24 06/22/16 03:45 06/22/16 07:12 06/22/16 10:52 Glucose (Fingerstick) 454mg/dL (70-99) 365mg/dL (70-99) 468mg/dL (70-99) White Blood Count 7.2x10^3/uL (4.0-11.0) Red Blood Count 3.69x10^6/uL (4.30-5.70) Hemoglobin 10.1g/dL (13.0-17.5) Hematocrit 31.3% (39.0-53.0) Mean Corpuscular Volume 85fL (79-100) Mean Corpuscular Hemoglobin 27pg (25-35) Mean Corpuscular Hemoglobin Concent 32g/dL (31-37) Red Cell Distribution Width 14.5% (11.5-14.5) Platelet Count 208x10^3/uL (140-400) Neutrophils (%) (Auto) 93% (31-73) Lymphocytes (%) (Auto) 3% (24-48) Monocytes (%) (Auto) 4% (0-9) Eosinophils (%) (Auto) 0% (0-3) Basophils (%) (Auto) 0% (0-3) Neutrophils # (Auto) 6.7x10^3uL (1.8-7.7) Lymphocytes # (Auto) 0.2x10^3/uL (1.0-4.8) Monocytes # (Auto) 0.3x10^3/uL (0.0-1.1) Eosinophils # (Auto) 0.0x10^3/uL (0.0-0.7) Basophils # (Auto) 0.0x10^3/uL (0.0-0.2) Segmented Neutrophils % 89% (35-66) Band Neutrophils % 6% (0-9) Lymphocytes % 3% (24-48) Monocytes % 2% (0-10) Platelet Estimate Adequate (ADEQUATE) Hypochromasia Slight Anisocytosis Slight Sodium Level 129mmol/L (136-145) Potassium Level 5.3mmol/L (3.5-5.1) Chloride Level 95mmol/L (98-107) Carbon Dioxide Level 27mmol/L (21-32) Anion Gap 7 (6-14) Blood Urea Nitrogen 30mg/dL (8-26) Creatinine 1.3mg/dL (0.7-1.3) Estimated GFR (Cockcroft-Gault) 65.5 Glucose Level 415mg/dL (70-99) Calcium Level 8.3mg/dL (8.5-10.1) Test 06/22/16 16:09 06/22/16 20:41 06/23/16 06:00 06/23/16 07:52 Glucose (Fingerstick) 380mg/dL (70-99) 401mg/dL (70-99) 210mg/dL (70-99) White Blood Count 10.3x10^3/uL (4.0-11.0) Red Blood Count 3.82x10^6/uL (4.30-5.70) Hemoglobin 10.4g/dL (13.0-17.5) Hematocrit 32.7% (39.0-53.0) Mean Corpuscular Volume 85fL (79-100) Mean Corpuscular Hemoglobin 27pg (25-35) Mean Corpuscular Hemoglobin Concent 32g/dL (31-37) Red Cell Distribution Width 14.8% (11.5-14.5) Platelet Count 226x10^3/uL (140-400) Neutrophils (%) (Auto) 89% (31-73) Lymphocytes (%) (Auto) 5% (24-48) Monocytes (%) (Auto) 6% (0-9) Eosinophils (%) (Auto) 0% (0-3) Basophils (%) (Auto) 0% (0-3) Neutrophils # (Auto) 9.2x10^3uL (1.8-7.7) Lymphocytes # (Auto) 0.5x10^3/uL (1.0-4.8) Monocytes # (Auto) 0.6x10^3/uL (0.0-1.1) Eosinophils # (Auto) 0.0x10^3/uL (0.0-0.7) Basophils # (Auto) 0.0x10^3/uL (0.0-0.2) Sodium Level 135mmol/L (136-145) Potassium Level 4.4mmol/L (3.5-5.1) Chloride Level 99mmol/L (98-107) Carbon Dioxide Level 26mmol/L (21-32) Anion Gap 10 (6-14) Blood Urea Nitrogen 34mg/dL (8-26) Creatinine 1.2mg/dL (0.7-1.3) Estimated GFR (Cockcroft-Gault) 71.8 Glucose Level 235mg/dL (70-99) Calcium Level 8.2mg/dL (8.5-10.1) Test 06/23/16 11:03 06/23/16 16:55 Glucose (Fingerstick) 295mg/dL (70-99) 197mg/dL (70-99) Laboratory Tests Test 06/22/16 20:41 06/23/16 06:00 06/23/16 07:52 06/23/16 11:03 Glucose (Fingerstick) 401mg/dL (70-99) 210mg/dL (70-99) 295mg/dL (70-99) White Blood Count 10.3x10^3/uL (4.0-11.0) Red Blood Count 3.82x10^6/uL (4.30-5.70) Hemoglobin 10.4g/dL (13.0-17.5) Hematocrit 32.7% (39.0-53.0) Mean Corpuscular Volume 85fL (79-100) Mean Corpuscular Hemoglobin 27pg (25-35) Mean Corpuscular Hemoglobin Concent 32g/dL (31-37) Red Cell Distribution Width 14.8% (11.5-14.5) Platelet Count 226x10^3/uL (140-400) Neutrophils (%) (Auto) 89% (31-73) Lymphocytes (%) (Auto) 5% (24-48) Monocytes (%) (Auto) 6% (0-9) Eosinophils (%) (Auto) 0% (0-3) Basophils (%) (Auto) 0% (0-3) Neutrophils # (Auto) 9.2x10^3uL (1.8-7.7) Lymphocytes # (Auto) 0.5x10^3/uL (1.0-4.8) Monocytes # (Auto) 0.6x10^3/uL (0.0-1.1) Eosinophils # (Auto) 0.0x10^3/uL (0.0-0.7) Basophils # (Auto) 0.0x10^3/uL (0.0-0.2) Sodium Level 135mmol/L (136-145) Potassium Level 4.4mmol/L (3.5-5.1) Chloride Level 99mmol/L (98-107) Carbon Dioxide Level 26mmol/L (21-32) Anion Gap 10 (6-14) Blood Urea Nitrogen 34mg/dL (8-26) Creatinine 1.2mg/dL (0.7-1.3) Estimated GFR (Cockcroft-Gault) 71.8 Glucose Level 235mg/dL (70-99) Calcium Level 8.2mg/dL (8.5-10.1) Test 06/23/16 16:55 Glucose (Fingerstick) 197mg/dL (70-99) Medications Active Scripts Medications Dose Route/Sig Days Date Category Advair 100-50 Diskus (Fluticasone/Salmeterol) 1 Each Disk.w.dev 1 Puff IH BID 06/21/16 Reported Spiriva Respimat (Tiotropium [place]) 4 Gm Mist.inhal 2.5 Gm IH DAILY 06/21/16 Reported Symbicort 160-4.5 Mcg Inhaler (Budesonide/Formoterol Fumarate) 10.2 Gm Hfa.aer.ad 2 Puff IH BID 06/21/16 Reported Atorvastatin Calcium 20 Mg Tablet 20 Mg PO HS 06/21/16 Reported Cephalexin 250 Mg Capsule 1 Cap PO Q8HRS 06/21/16 Reported Lisinopril-Hctz 10-12.5 Mg Tab (Lisinopril/Hydrochlorothiazide) 1 Each Tablet 1 Tab PO DAILY 06/21/16 Reported Isosorbide Mononitrate Er (Isosorbide Mononitrate) 120 Mg Tab.er.24h 120 Mg PO DAILY 06/21/16 Reported Levemir Flextouch (Insulin Detemir) 100 Unit/1 Ml Insuln.pen 20 Units SQ QHS 30 11/24/15 Rx Novolog Flexpen (Insulin Aspart) 100 Unit/1 Ml Insuln.pen 10 Units SQ TIDAC 30 11/24/15 Rx Novolin N (Nph, Human Insulin Isophane) 100 Unit/1 Ml Vial 0 SQ 11/18/15 Reported Promethazine-Codeine Syrup (Promethazine Hcl/Codeine) 118 Ml Syrup 5 Ml PO Q4-6HRS 11/18/15 Reported Diltiazem 24HR Cd (Diltiazem Hcl) 240 Mg Cap.er.24h 240 Mg PO DAILY 11/18/15 Reported NITROGLYCERIN SubLingual (Nitroglycerin) 0.4 Mg Tab.subl 0.4 Mg SL PRN Q5MIN PRN 11/18/15 Reported Atorvastatin Calcium 40 Mg Tablet 40 Mg PO HS 11/18/15 Reported Impression . IMPRESSION: 1. Acute exacerbation of chronic obstructive pulmonary disease triggered by viral bronchitis. 2. Persistent cough, nonproductive. No fever. White cell count, normal. Suspect viral bronchitis. 3. Abnormal chest x-ray, chronic right lower lobe pleural thickening, no acute consolidation. Plan . Improving change to po med 1. Continue with present bronchodilators. 2. Steroids. 3. Oxygen to keep saturation 92 and above. 4. Add cough suppressant. DOUGIE RIVAS MD Jun 23, 2016 17:28
[2016-06-23 19:59] VITALS: BP 130/66
[2016-06-23] MEDS: ATORVASTATIN CALCIUM 40 MG TABLET. PO SCH (20:45)
[2016-06-23] MEDS: INSULIN DETEMIR 300 UNITS/3 ML INSULN.PEN. SQ SCH (20:49)
[2016-06-24 03:18] VITALS: BP 101/59
[2016-06-24 05:13] LABS: BASO % 0 % (0-3); EOS % 0 % (0-3); HEMATOCRIT 33.8 % (39.0-53.0); HEMOGLOBIN 11.1 g/dL (13.0-17.5); LYMPH # 0.9 x10^3/uL (1.0-4.8); LYMPH % 9 % (24-48); MEAN CORPUSCULAR HEMOGLOBIN 27 pg (25-35); MEAN CORPUSCULAR HGB CONC 33 g/dL (31-37); MEAN CORPUSCULAR VOLUME 83 fL (79-100); MONO % 7 % (0-9); NEUT % 83 % (31-73); PLATELET COUNT 230 x10^3/uL (140-400); RED BLOOD COUNT 4.06 x10^6/uL (4.30-5.70); RED CELL DISTRIBUTION WIDTH 14.6 % (11.5-14.5); WHITE BLOOD COUNT 9.6 x10^3/uL (4.0-11.0)
[2016-06-24 05:26] LABS: CREATININE 1.1 mg/dL (0.7-1.3); GFR 79.4; POTASSIUM 4.2 mmol/L (3.5-5.1)
[2016-06-24 07:00] VITALS: BP 116/60
[2016-06-24] MEDS: IPRATRPIUM/ALBUTEROL 0.5/2.5MG 3 ML NEBU. NEB SCH ×3 (07:27→16:06)
[2016-06-24] MEDS: BUDESONIDE 0.5 MG/2 ML NEBU NEB SCH (07:27)
[2016-06-24] MEDS: PROMETH/CODEINE 6.25/10MG 5 ML SYRUP. PO PRN (08:04)
[2016-06-24] MEDS: ISOSORBIDE MONONITRATE ER 60 MG TAB.ER.24H PO SCH (08:05)
[2016-06-24] MEDS: LISINOPRIL 10 MG TABLET PO SCH (08:05)
[2016-06-24] MEDS: PREDNISONE 20 MG TABLET PO SCH (08:05)
[2016-06-24] MEDS: DILTIAZEM HCL 240 MG CAP.ER.24H PO SCH (08:06)
[2016-06-24] MEDS: INSULIN ASPART 300 UNITS/3 ML INSULN.PEN SQ SCH ×4 (08:09→12:01)
[2016-06-24 10:44] VITALS: BP 111/58
[2016-06-24 15:00] VITALS: BP 115/59
[2016-06-25] MEDS ORDERED: PREDNISONE 10 MG TABLET PO SCH (09:00)
[2016-06-28] MEDS ORDERED: PREDNISONE 20 MG TABLET PO SCH (09:00)
[2016-07-01] MEDS ORDERED: PREDNISONE 10 MG TABLET PO SCH (09:00)
[2016-07-04] MEDS ORDERED: PREDNISONE 5 MG TABLET PO SCH (09:00)
== END 2016-06-24 16:53 | disposition home or self-care (01) | DRG 191 ==
LOC: ER 18:44 → 5 SOUTH 20:45
PROVIDERS: ADMIT Internal Medicine Hematology & Oncology; ATTEND Internal Medicine Hematology & Oncology
DX: J44.0 Chronic obstructive pulmonary disease with (acute) lower respiratory infection (principal); J96.10 Chronic respiratory failure, unspecified whether with hypoxia or hypercapnia; E87.1 Hypo-osmolality and hyponatremia; J44.1 Chronic obstructive pulmonary disease with (acute) exacerbation; J20.8 Acute bronchitis due to other specified organisms; E11.65 Type 2 diabetes mellitus with hyperglycemia; E78.00 Pure hypercholesterolemia, unspecified; E78.5 Hyperlipidemia, unspecified; E87.5 Hyperkalemia; F17.200 Nicotine dependence, unspecified, uncomplicated; I10 Essential (primary) hypertension; I25.10 Atherosclerotic heart disease of native coronary artery without angina pectoris; J45.909 Unspecified asthma, uncomplicated; Z82.49 Family history of ischemic heart disease and other diseases of the circulatory system; Z87.01 Personal history of pneumonia (recurrent); Z79.4 Long term (current) use of insulin
CPT/HCPCS: 36415; 71010; 80048; 82947; 83880; 84484; 85007; 85027; 90686; 93005; 94250; 94620; 94640; 94760; 96361; 96374; 96375; 99406; J1815; J2405; J2920; J2930; J7030; J7512; J7620; 99285-25

== ENCOUNTER 2016-07-12 11:06 | Inpatient (IN) | payer MEDICARE ==
[~2016-07-12] VITALS: Ht 188 cm; Wt 115.7 kg
[2016-07-12] VITALS (8 sets, daily range): BP systolic 133–190; BP diastolic 70–122
[~2016-07-12 11:06] MED LIST changes: +BUDE10.2 IH; +CEPH250C PO; +FLUT1DIS IH; +ISOS120T2 PO; +LISI1TAB3 PO; +TIOT4MIS5 IH
[2016-07-12] MEDS ORDERED: LIDOCAINE 2% TOPICAL JELLY 5GM TUBE. TP ONE (12:00)
[2016-07-12] MEDS ORDERED: BENZOCAINE ONE 20% MUCOSAL SPRAY. (12:00)
[2016-07-12 12:30] LABS: BASO % 0 % (0-3); EOS % 1 % (0-3); HEMATOCRIT 32.5 % (39.0-53.0); HEMOGLOBIN 10.6 g/dL (13.0-17.5); LYMPH % 15 % (24-48); MEAN CORPUSCULAR HEMOGLOBIN 28 pg (25-35); MEAN CORPUSCULAR HGB CONC 33 g/dL (31-37); MEAN CORPUSCULAR VOLUME 85 fL (79-100); MONO % 10 % (0-9); NEUT % 74 % (31-73); PLATELET COUNT 502 x10^3/uL (140-400); RED BLOOD COUNT 3.82 x10^6/uL (4.30-5.70); RED CELL DISTRIBUTION WIDTH 13.8 % (11.5-14.5); WHITE BLOOD COUNT 6.9 x10^3/uL (4.0-11.0)
[2016-07-12] MEDS ORDERED: PREDNISONE 20 MG TABLET PO ONE (12:30)
[2016-07-12] MEDS ORDERED: IPRATRPIUM/ALBUTEROL 0.5/2.5MG 3 ML NEBU. NEB ONE (12:30)
[2016-07-12 12:48] LABS: CALCIUM 9.4 mg/dL (8.5-10.1); CREATININE 1.3 mg/dL (0.7-1.3); GFR 65.5; POTASSIUM 4.5 mmol/L (3.5-5.1)
--- NOTE | 2016-07-12 12:53 | PHYS DOC ---
Past Medical History Past Medical History: COPD, Diabetes-Type II, High Cholesterol, Hypertension, [place], Prostatitis Past Surgical History: Other Additional Past Surgical Histo: lung surgery? Alcohol Use: None Drug Use: None Adult General Chief Complaint Chief Complaint: FACE PROBLEM HPI HPI Patient is a 75 year old female who presents with complaint of facial swelling over the weekend as well as nausea/vomiting. Patient reports she woke Tuesday morning with swelling in his face. Patient says the swelling has gone down by this point. Of note, he does take lisinopril; he has taken it for years and never had a problem. He also reports cold symptoms, specifically cough and runny nose. He does report some nausea/vomiting as well and mild shortness of breath. No chest discomfort. No fever. Review of Systems Review of Systems Constitutional: Denies fever or chills Eyes: Denies change in visual acuity or eye pain HENT: Facial swelling (resolved); runny nose Respiratory: Cough, shortness of breath Cardiovascular: Denies chest pain GI: Nausea/vomiting. Denies abdominal pain, bloody stools or diarrhea : Denies dysuria or hematuria Musculoskeletal: Denies back pain or joint pain Integument: Denies rash or skin lesions Neurologic: Denies headache, focal weakness or sensory changes Current Medications Current Medications Current Medications Medications (Trade) Dose Ordered Sig/Ann Marie Start Time Stop Time Status Last Admin Dose Admin Albuterol/ Ipratropium (Duoneb) 6 ml 1X ONCE 07/12/16 12:30 07/12/16 12:31 DC 07/12/16 12:34 6 ML Insulin Human Regular (Novolin R Vial) 10 unit 1X ONCE 07/12/16 13:15 07/12/16 13:16 DC 07/12/16 13:16 10 UNIT Prednisone 60 mg 60 mg 1X ONCE 07/12/16 12:30 07/12/16 12:31 DC 07/12/16 12:40 60 MG Sodium Chloride (Iv Sodium Chloride 0.9% 1000ml Bag) 1,000 ml @ 1,000 mls/hr 1X ONCE 07/12/16 13:15 07/12/16 14:14 DC 07/12/16 13:12 1,000 MLS/HR Allergies Allergies Allergies Coded Allergies Type Severity Reaction Last Updated Verified No Known Drug Allergies 10/31/13 No Physical Exam Physical Exam Constitutional: Well developed, well nourished, no acute distress, non-toxic appearance HENT: Normocephalic, atraumatic, bilateral external ears normal; no facial or tongue swelling appreciated, airway widely patent Eyes: EOMI, conjunctiva normal, no discharge; strabismus Neck: Normal range of motion, no stridor Cardiovascular: Heart rate normal, regular rhythm, no murmur Lungs & Thorax: Coarse breath sounds, diffuse expiratory wheezing Abdomen: Bowel sounds normal, soft, non-distended, no TTP Skin: Warm, dry, no erythema, no rash Extremities: No obvious deformity, no edema Neurologic: Alert and oriented X 3, no gross deficits noted Current Patient Data Vital Signs Vital Signs Date Time Temp Pulse Resp B/P Pulse Ox O2 Delivery O2 Flow Rate FiO2 07/12/16 14:02 84 124/58 94 07/12/16 12:39 Room Air 07/12/16 11:12 98.7 20 98.7 Lab Values Laboratory Tests Test 07/12/16 12:10 White Blood Count 6.9x10^3/uL (4.0-11.0) Red Blood Count 3.82x10^6/uL (4.30-5.70) L Hemoglobin 10.6g/dL (13.0-17.5) L Hematocrit 32.5% (39.0-53.0) L Mean Corpuscular Volume 85fL (79-100) Mean Corpuscular Hemoglobin 28pg (25-35) Mean Corpuscular Hemoglobin Concent 33g/dL (31-37) Red Cell Distribution Width 13.8% (11.5-14.5) Platelet Count 502x10^3/uL (140-400) #H Neutrophils (%) (Auto) 74% (31-73) H Lymphocytes (%) (Auto) 15% (24-48) L Monocytes (%) (Auto) 10% (0-9) H Eosinophils (%) (Auto) 1% (0-3) Basophils (%) (Auto) 0% (0-3) Neutrophils # (Auto) 5.1x10^3uL (1.8-7.7) Lymphocytes # (Auto) 1.0x10^3/uL (1.0-4.8) Monocytes # (Auto) 0.7x10^3/uL (0.0-1.1) Eosinophils # (Auto) 0.1x10^3/uL (0.0-0.7) Basophils # (Auto) 0.0x10^3/uL (0.0-0.2) Sodium Level 132mmol/L (136-145) L Potassium Level 4.5mmol/L (3.5-5.1) Chloride Level 94mmol/L (98-107) L Carbon Dioxide Level 33mmol/L (21-32) H Anion Gap 5 (6-14) L Blood Urea Nitrogen 27mg/dL (8-26) H Creatinine 1.3mg/dL (0.7-1.3) Estimated GFR (Cockcroft-Gault) 65.5 Glucose Level 522mg/dL (70-99) *H Calcium Level 9.4mg/dL (8.5-10.1) Troponin I Quantitative < 0.017ng/mL (0.000-0.055) Laboratory Tests 07/12/16 12:10 Laboratory Tests 07/12/16 12:10 EKG EKG EKG (my read): sinus rhythm, rate 90, borderline LAD, nonspecific ST changes Radiology/Procedures Radiology/Procedures CXR: Indication cough. Wheezing. Shortness of air. Single view of the chest was obtained and is compared to a study 06/20/2016. Blunting at the right costophrenic angle, probably reflecting scar, is again seen and appears similar. There is some new volume loss at the right lung base relative to the previous exam. Underlying patchy area of pneumonia in the right lower lobe is not excluded. The left lung is clear. The heart and pulmonary vessels are within normal limits. IMPRESSION: Chronic blunting, likely reflecting scar, at the right costophrenic angle. New volume loss in the right lower lobe suggesting a patchy area of superimposed pneumonia Course & Med Decision Making Course & Med Decision Making Pertinent Labs and Imaging studies reviewed. (See chart for details) Patient is 75-year-old male who presents with report of facial swelling. On my initial exam patient did not have any facial or tongue swelling. More concerning to me was apparent COPD exacerbation. Steroids, breathing treatment ordered. EKG, chest x-ray, labs ordered to evaluate. EKG and imaging results as above. Patient afebrile, without white count. Labs most notable for hyperglycemia. Dose of insulin and IV fluid bolus ordered. Discussed results with patient. Discussed with Dr. Tan, who has agreed to admit patient. I was called into the room for some tongue swelling after Dr. Tan had come down to see patient; at this time left side of lung have started to swell, however airway remained patent and patient was managing secretions well. I did order dose of Benadryl at this time. Dragon Disclaimer Dragon Disclaimer This electronic medical record was generated, in whole or in part, using a voice recognition dictation system. Departure Departure Impression: Primary Impression: COPD exacerbation Additional Impression: Hyperglycemia Disposition: ADMITTED INPATIENT Admitting Physician: Lance Tan Condition: GUARDED Referrals: ELO OLIVER APRN (PCP) Problem Qualifiers BYRON NICHOLS MD Jul 12, 2016 12:53
[2016-07-12] MEDS ORDERED: IV NORMAL SALINE 1000ML BAG 1,000 ML IV ONE (13:15)
[2016-07-12] MEDS ORDERED: INSULIN REGULAR 100 UNIT/ML 10ML VIAL. IV ONE (13:15)
--- NOTE | 2016-07-12 14:12 | EKG ---
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
[2016-07-12] MEDS ORDERED: DIPHENHYDRAMINE 50 MG/ML VIAL ONE (14:55)
[2016-07-12] MEDS ORDERED: ROCURONIUM 50 MG/5 ML VIAL. ONE (15:00)
[2016-07-12] MEDS ORDERED: GLYCOPYRROLATE 1 MG/5 ML VIAL. ONE (15:00)
[2016-07-12] MEDS ORDERED: DIPHENHYDRAMINE 50 MG/ML VIAL IVP ONE (15:15)
--- NOTE | 2016-07-12 15:46 | PDOC1 ---
History and Physical Date of Admission Date of Admission 07/12/16 Identification/Chief Complaint Chief Complaint face and tongue swollen Problems: Source Source: Chart review, Patient History of Present Illness History of Present Illness 75yo M, who was dced last month for COPD exacerbation , came today for facial and tongue swollen. He said he woke up with face swollen on Saterday, took some aspirin which helped. He then has tongue swollen from today, with lots of saliva. pT also has sob, got nebs in ER, now looks calm to me, no wheezing, but hard to understand what he is talking about 2/2 swollen tongue. Denies takes new meds to contact something to make it allergy. takes lisinopril at home. Past Medical History Cardiovascular: CAD, HTN, [place] Pulmonary: COPD Endocrine: Diabetes Past Surgical History Past Surgical History: Other Family History Family History: No Significant, Hypertension Social History Smoke: No ALCOHOL: none Drugs: None Current Problem List Problem List Problems Medical Problems: (1) COPD exacerbation Status: Acute (2) Hyperglycemia Status: Acute Current Medications Current Medications Current Medications Medications (Trade) Dose Ordered Sig/Ann Marie Start Time Stop Time Status Last Admin Dose Admin Albuterol/ Ipratropium (Duoneb) 6 ml 1X ONCE 07/12/16 12:30 07/12/16 12:31 DC 07/12/16 12:34 6 ML Diphenhydramine HCl (Benadryl) 50 mg 1X ONCE 07/12/16 15:15 07/12/16 15:16 DC 07/12/16 15:15 50 MG Insulin Human Regular (Novolin R Vial) 10 unit 1X ONCE 07/12/16 13:15 07/12/16 13:16 DC 07/12/16 13:16 10 UNIT Prednisone 60 mg 60 mg 1X ONCE 07/12/16 12:30 07/12/16 12:31 DC 07/12/16 12:40 60 MG Sodium Chloride (Iv Sodium Chloride 0.9% 1000ml Bag) 1,000 ml @ 1,000 mls/hr 1X ONCE 07/12/16 13:15 07/12/16 14:14 DC 07/12/16 13:12 1,000 MLS/HR Allergies Allergies Allergies Coded Allergies Type Severity Reaction Last Updated Verified No Known Drug Allergies 10/31/13 No ROS Review of System CONSTITUTIONAL: No fever or chills EYES: No recent changes SKIN: No rash or itching CARDIOVASCULAR: No chest pain, syncope, palpitations, or edema RESPIRATORY: No SOB or cough GASTROINTESTINAL: No nausea, vomiting or abdominal pain NEUROLOGICAL: No headaches or weakness ENDOCRINE: No cold or heat intolerance GENITOURINARY: No urgency or frequency of urination MUSCULOSKELETAL: No back pain or joint pain LYMPHATICS: No enlarged lymph nodes PSYCHIATRIC: No anxiety or depression Physical Exam Physical Exam GEN.: No apparent distress. Alert and oriented. HEENT: Head is normocephalic, atraumatic. mild bl facial swollen, rt>lt, severe left tongue swollen, with lots of saliva NECK: Supple. LUNGS: Clear to auscultation. HEART: RRR, S1, S2 present. Peripheral pulses intact ABDOMEN: Soft, nontender. Positive bowel sounds. EXTREMITIES: Without any cyanosis. NEUROLOGIC: Normal speech, normal tone PSYCHIATRIC: Normal affect, normal mood. SKIN: No ulcerations Vitals Vitals Vital Signs Date Time Temp Pulse Resp B/P Pulse Ox O2 Delivery O2 Flow Rate FiO2 07/12/16 14:02 84 124/58 94 07/12/16 12:39 Room Air 07/12/16 11:12 98.7 20 98.7 Labs Labs Laboratory Tests Test 07/12/16 12:10 White Blood Count 6.9x10^3/uL (4.0-11.0) Red Blood Count 3.82x10^6/uL (4.30-5.70) Hemoglobin 10.6g/dL (13.0-17.5) Hematocrit 32.5% (39.0-53.0) Mean Corpuscular Volume 85fL (79-100) Mean Corpuscular Hemoglobin 28pg (25-35) Mean Corpuscular Hemoglobin Concent 33g/dL (31-37) Red Cell Distribution Width 13.8% (11.5-14.5) Platelet Count 502x10^3/uL (140-400) Neutrophils (%) (Auto) 74% (31-73) Lymphocytes (%) (Auto) 15% (24-48) Monocytes (%) (Auto) 10% (0-9) Eosinophils (%) (Auto) 1% (0-3) Basophils (%) (Auto) 0% (0-3) Neutrophils # (Auto) 5.1x10^3uL (1.8-7.7) Lymphocytes # (Auto) 1.0x10^3/uL (1.0-4.8) Monocytes # (Auto) 0.7x10^3/uL (0.0-1.1) Eosinophils # (Auto) 0.1x10^3/uL (0.0-0.7) Basophils # (Auto) 0.0x10^3/uL (0.0-0.2) Sodium Level 132mmol/L (136-145) Potassium Level 4.5mmol/L (3.5-5.1) Chloride Level 94mmol/L (98-107) Carbon Dioxide Level 33mmol/L (21-32) Anion Gap 5 (6-14) Blood Urea Nitrogen 27mg/dL (8-26) Creatinine 1.3mg/dL (0.7-1.3) Estimated GFR (Cockcroft-Gault) 65.5 Glucose Level 522mg/dL (70-99) Calcium Level 9.4mg/dL (8.5-10.1) Troponin I Quantitative < 0.017ng/mL (0.000-0.055) Laboratory Tests Test 07/12/16 12:10 White Blood Count 6.9x10^3/uL (4.0-11.0) Red Blood Count 3.82x10^6/uL (4.30-5.70) Hemoglobin 10.6g/dL (13.0-17.5) Hematocrit 32.5% (39.0-53.0) Mean Corpuscular Volume 85fL (79-100) Mean Corpuscular Hemoglobin 28pg (25-35) Mean Corpuscular Hemoglobin Concent 33g/dL (31-37) Red Cell Distribution Width 13.8% (11.5-14.5) Platelet Count 502x10^3/uL (140-400) Neutrophils (%) (Auto) 74% (31-73) Lymphocytes (%) (Auto) 15% (24-48) Monocytes (%) (Auto) 10% (0-9) Eosinophils (%) (Auto) 1% (0-3) Basophils (%) (Auto) 0% (0-3) Neutrophils # (Auto) 5.1x10^3uL (1.8-7.7) Lymphocytes # (Auto) 1.0x10^3/uL (1.0-4.8) Monocytes # (Auto) 0.7x10^3/uL (0.0-1.1) Eosinophils # (Auto) 0.1x10^3/uL (0.0-0.7) Basophils # (Auto) 0.0x10^3/uL (0.0-0.2) Sodium Level 132mmol/L (136-145) Potassium Level 4.5mmol/L (3.5-5.1) Chloride Level 94mmol/L (98-107) Carbon Dioxide Level 33mmol/L (21-32) Anion Gap 5 (6-14) Blood Urea Nitrogen 27mg/dL (8-26) Creatinine 1.3mg/dL (0.7-1.3) Estimated GFR (Cockcroft-Gault) 65.5 Glucose Level 522mg/dL (70-99) Calcium Level 9.4mg/dL (8.5-10.1) Troponin I Quantitative < 0.017ng/mL (0.000-0.055) VTE Prophylaxis Ordered VTE Prophylaxis Devices: Yes VTE Pharmacological Prophylaxi: Yes Assessment/Plan Assessment/Plan 1. angioedema 2/2 ACEI likely 2. COPD exacerbation 3. UNcontrolled dm2 4. htn 5. hld plan: 1. head/facial ct stat 2. pulm consult 3. solumedrol and benadral for now, might not help the tongue swollen tho duoneb 4. cont levemir 20u qhs, ssi q6h ivf NS 100/h 5. 2FFP FOR angioedema 6. monitor air way, may need to go to ICU if sob dvt, gi ppx JOHN PAUL BALDWIN MD Jul 12, 2016 15:46
--- NOTE | 2016-07-12 15:54 | ACF ---
Admission Forms Criteria COPD Clinical Indications for Admission to Inpatient Care (Place 'X' for any and all applicable criteria): Admission is indicated for ANY ONE of the following (1)(2)(3): [X]I. Acute exacerbation by high-risk comorbidity (e.g., pneumonia, dysrhythmia, heart failure, pleural effusion, pneumothorax) or severe underlying COPD (e.g., steroid dependent) [ ]II. Inpatient admission required rather than observation care (see Chronic Obstructive Pulmonary Disease: Observation Care) because of ANY ONE of the following: [ ]a) New or pre-existing signs or symptoms of COPD (eg, dyspnea or Tachypnea at rest or with minimal activity) that persist despite outpatient and observation care treatment [ ]b) New-onset hypoxemia (room air SaO2 less than 90%, PO2 less than 60 mm Hg (8.0 kPa)) that persists despite outpatient and observation care treatment [ ]c) Worsening of pre-existing hypoxemia (eg, new or increased requirement for supplemental oxygen to maintain oxygenation at baseline level) that persists despite outpatient and observation care treatment, with oxygen treatment needs performable only in acute inpatient setting [ ]d) Hypercarbia (PCO2 greater than 40 mm Hg (5.3 kPa))-induced respiratory acidosis (pH less than 7.35) that persists despite outpatient and observation care treatment [ ]e) Supplemental oxygen or respiratory treatments for over 24 hours that are performable only in acute inpatient setting [ ]f) Chest tube placement with active evacuation (e.g., suction, drainage) (5) [ ]g) Other condition, treatment or monitoring requiring inpatient admission [ ]III. Planned invasive surgical or diagnostic procedures requiring acute- care hospitalization [ ]IV. Acute respiratory failure (e.g., uncompensated hypercarbia, severe hypoxemia) [ ]V. Severe comorbid condition (e.g., severe steroid myopathy, acute vertebral fracture) that has acutely worsened pulmonary function [ ]. Confusion state, lethargy, obtundation, stupor or coma Extended stay beyond goal length of stay may be needed for (31)(32): [ ]a ) Respiratory Failure. [ ]b) Severe or persisting hypoxemia or hypercarbia [ ]c) Severe or persistent dyspnea [ ]d) Comorbidities (e.g. chronic heart failure, atrial fibrillation with rapid response, pneumonia) [ ]e) Malnutrition The original [facility] content created by [facility] has been revised. The portions of the content which have been revised are identified through the use of italic text or in bold, and [facility] has neither reviewed nor approved the modified material. All other unmodified content is copyright [facility]. Please see references footnoted in the original [facility] edition 2016 Admission Criteria Met?: Yes MALA MCELROY Jul 12, 2016 15:54
[2016-07-12] MEDS ORDERED: DIPHENHYDRAMINE 50 MG/ML VIAL IVP PRN (16:00)
[2016-07-12] MEDS ORDERED: DEXTROSE 50% 25 GM / 50ML DISP.SYRIN. IV PRN (16:00)
[2016-07-12] MEDS ORDERED: INSULIN ASPART 300 UNITS/3 ML INSULN.PEN SQ SCH (16:30)
[2016-07-12] MEDS: DILTIAZEM HCL 240 MG CAP.ER.24H PO SCH (16:30)
[2016-07-12] MEDS: IV NORMAL SALINE 1000ML BAG 1,000 ML IV SCH (16:30)
[2016-07-12] MEDS ORDERED: methylPREDNISolone SOD SUCC PF 40 MG/ML VIAL. IV ONE (16:30)
[2016-07-12] MEDS: PROMETH/CODEINE 6.25/10MG 5 ML SYRUP. PO SCH ×2 (17:00→21:00)
[2016-07-12] MEDS ORDERED: IPRATRPIUM/ALBUTEROL 0.5/2.5MG 3 ML NEBU. NEB SCH (17:00)
[2016-07-12] MEDS: INSULIN ASPART 300 UNITS/3 ML INSULN.PEN SQ SCH ×2 (17:00→23:49)
[2016-07-12] MEDS ORDERED: SUCCINYLCHOLINE 200 MG/10 ML VIAL. ONE ×2 (17:46→18:00)
[2016-07-12] MEDS ORDERED: PROPOFOL 100 ML IV ONE (17:46)
[2016-07-12] MEDS ORDERED: PROPOFOL 10 MG/ML (100ML) VIAL. IV ONE (18:00)
[2016-07-12] MEDS ORDERED: LIDOCAINE 1% PF 30 ML VIAL. ONE ×2 (18:00→18:19)
[2016-07-12] MEDS ORDERED: MIDAZOLAM HCL/PF 5 MG/5 ML VIAL ONE ×2 (18:00→18:14)
--- NOTE | 2016-07-12 18:01 | RAD ---
PROCEDURE CT head and maxillofacial without contrast. HISTORY Facial and head swelling. Possible reaction to lisinopril. TECHNIQUE Noncontrast CT head was obtained. CT maxillofacial includes axial images and coronal and sagittal re-formatted images. One or more of the following individualized dose reduction techniques were utilized for this exam: 1. Automated exposure control. 2. Adjustment of the mA and/or kV according to patient's size. 3. Use of iterative reconstruction technique. COMPARISON October 07, 2010. FINDINGS Head: There is mild motion degradation. There is brain parenchymal volume loss and minimal probable small-vessel ischemic disease. There is no gross intracranial hemorrhage or extra-axial fluid collection. There is no CT evidence of a large vascular distribution infarct. Paranasal sinuses and mastoid air cells are clear. There is no depressed skull fracture. Maxillofacial: There is marked enlargement of the tongue. There is also an edematous appearance of the oropharynx with moderate narrowing. The airway is narrowed to 8 x 11 millimeters. No definite epiglottic thickening is apparent. No organized fluid collection is apparent on this noncontrast study. Orbital contents are unremarkable. Deformity of the anterior wall of the right maxillary sinus may be sequela of remote trauma. There is minimal maxillary mucosal thickening. Orbital contents are unremarkable. Tubing is noted extending to the patient's lips, does not extend any deeper. IMPRESSION 1. Marked enlargement of the patient's tongue as well as oropharynx with moderate narrowing of the airway, nonspecific but certainly could be related to anaphylactic medication reaction. 2. No acute intracranial findings. Brain parenchymal volume loss. Electronically signed by: Sherman Capps MD (Jul 12, 2016 18:00:22)
[2016-07-12] MEDS ORDERED: LIDOCAINE 2% 100 MG/5 ML DISP.SYRIN. ONE (18:02)
[2016-07-12] MEDS ORDERED: OXYMETAZOLINE 0.05% NASAL SPRAY 30ML BOTTLE. NS ONE (18:30)
[2016-07-12] MEDS ORDERED: MIDAZOLAM HCL 2 MG/2 ML VIAL. IV ONE (18:30)
[2016-07-12] MEDS ORDERED: GLYCOPYRROLATE 1 MG/5 ML VIAL. IV ONE (18:30)
[2016-07-12] MEDS ORDERED: KETAMINE HCL 500 MG/10 ML VIAL. ONE (18:30)
[2016-07-12] MEDS ORDERED: KETAMINE HCL 500 MG/10 ML VIAL. IV ONE (18:30)
[2016-07-12] MEDS ORDERED: VECURONIUM BOLUS 10 MG VIAL. IV PRN (19:00)
--- NOTE | 2016-07-12 19:19 | RAD ---
PROCEDURE Portable chest radiograph. HISTORY Endotracheal tube placement. TECHNIQUE AP portable chest radiograph was obtained. COMPARISON None provided. FINDINGS Endotracheal tube is in place, below the thoracic inlet and well above the herson. Patient is rotated. Right basilar opacity is noted with blunting of the right costophrenic angle. Minimal patchy opacity in the left lung base is noted. Heart is not enlarged. Thoracic aorta is tortuous with atheromatous disease. Leads overlie the patient. IMPRESSION 1. Endotracheal tube is in place. 2. Basilar atelectasis or less likely infiltrate, greater on the right. Right pleural effusion or pleural parenchymal scarring also suspected. Electronically signed by: Sherman Capps MD (Jul 12, 2016 19:18:27)
[2016-07-12] MEDS ORDERED: INSULIN ASPART 300 UNITS/3 ML INSULN.PEN SQ ONE (19:45)
[2016-07-12] MEDS: ENOXAPARIN 40 MG/0.4 ML SYRINGE. SQ SCH (20:00)
[2016-07-12] MEDS: IPRATRPIUM/ALBUTEROL 0.5/2.5MG 3 ML NEBU. NEB SCH (20:18)
[2016-07-12] MEDS: BUDESONIDE 0.5 MG/2 ML NEBU NEB SCH (20:18)
[2016-07-12 20:21] LABS: FIO2 ABG 30; HCO3 ABG 27 mmol/L (21-28); PCO2 ABG 53 mmHg (35-46); PH ABG 7.32 (7.35-7.45); PO2 ABG 82 mmHg (65-108); SAT O2 ABG 95 % (92-99)
[2016-07-12] MEDS ORDERED: INSULIN DETEMIR 300 UNITS/3 ML INSULN.PEN. SQ SCH ×3 (21:00)
[2016-07-12] MEDS: ATORVASTATIN CALCIUM 40 MG TABLET. PO SCH (21:00)
[2016-07-12] MEDS ORDERED: NON FORMULARY ITEM (Budesonide/Formoterol Fumarate (Symbicort 160-4.5 Mcg Inhaler) 2 PUFF) IH SCH (21:00)
--- NOTE | 2016-07-12 21:07 | RAD ---
PROCEDURE Portable chest radiograph. HISTORY Central line placement. TECHNIQUE Spine portable chest radiograph was obtained. COMPARISON Earlier today. FINDINGS Endotracheal tube remains in place. Right IJ central line has been placed, tip in the SVC. No pneumothorax on this supine film is apparent. Remainder of the study is stable. Patient is again rotated. IMPRESSION Right IJ central line placement without complication. Electronically signed by: Sherman Capps MD (Jul 12, 2016 21:05:51)
[2016-07-12] MEDS: PROPOFOL 100 ML IV PRN (23:33)
[2016-07-12] MEDS: VECURONIUM BROMIDE IV PRN (23:34)
[2016-07-12] MEDS: DEXTROSE 5% IV PRN (23:34)
[2016-07-12] MEDS: FENTANYL STANDARD PCA 30 ML IV PRN (23:35)
[2016-07-13] VITALS (24 sets, daily range): BP systolic 98–183; BP diastolic 56–89
[2016-07-13] MEDS: IV NORMAL SALINE 1000ML BAG 1,000 ML IV SCH ×2 (02:30→15:45)
[2016-07-13] MEDS: PROPOFOL 100 ML IV PRN ×4 (02:32→22:36)
[2016-07-13 05:21] LABS: BASO % 1 % (0-3); EOS % 0 % (0-3); HEMOGLOBIN 9.3 g/dL (13.0-17.5); LYMPH # 0.7 x10^3/uL (1.0-4.8); LYMPH % 13 % (24-48); MEAN CORPUSCULAR HEMOGLOBIN 27 pg (25-35); MEAN CORPUSCULAR HGB CONC 32 g/dL (31-37); MEAN CORPUSCULAR VOLUME 85 fL (79-100); MONO % 4 % (0-9); NEUT % 82 % (31-73); PLATELET COUNT 462 x10^3/uL (140-400); RED BLOOD COUNT 3.42 x10^6/uL (4.30-5.70); RED CELL DISTRIBUTION WIDTH 13.4 % (11.5-14.5); WHITE BLOOD COUNT 5.9 x10^3/uL (4.0-11.0)
[2016-07-13 05:30] LABS: INR 1.2 (0.8-1.1); PROTHROMBIN TIME PATIENT 14.7 SEC (11.7-14.0)
[2016-07-13 05:44] LABS: ALBUMIN 1.9 g/dL (3.4-5.0); ALBUMIN/GLOBULIN RATIO 0.4 (1.0-1.7); CALCIUM 8.8 mg/dL (8.5-10.1); CREATININE 1.2 mg/dL (0.7-1.3); GFR 71.8; TOTAL BILIRUBIN 0.2 mg/dL (0.2-1.0); TOTAL PROTEIN 7.1 g/dL (6.4-8.2)
[2016-07-13 05:50] LABS: POTASSIUM 5.7 mmol/L (3.5-5.1)
[2016-07-13] MEDS: BUDESONIDE 0.5 MG/2 ML NEBU NEB SCH (07:30)
[2016-07-13] MEDS: IPRATRPIUM/ALBUTEROL 0.5/2.5MG 3 ML NEBU. NEB SCH ×4 (07:30→20:00)
[2016-07-13 07:43] LABS: BILIRUBIN,URINE NEGATIVE (NEG); GLUCOSE,URINE 500 mg/dL (NEG); NITRITE,URINE POSITIVE (NEG); PROTEIN,URINE 30 mg/dL (NEG-TRACE)
[2016-07-13 08:35] LABS: BACTERIA,URINE MANY /HPF (0-FEW); RBC,URINE >40 /HPF (0-2); WBC,URINE TNTC /HPF (0-4)
[2016-07-13 08:49] LABS: HCO3 ABG 25 mmol/L (21-28); PCO2 ABG 43 mmHg (35-46); PH ABG 7.39 (7.35-7.45); PO2 ABG 101 mmHg (65-108); SAT O2 ABG 97 % (92-99)
[2016-07-13] MEDS: methylPREDNISolone SOD SUCC PF 125 MG/2 ML VIAL. IV SCH ×2 (08:56→20:48)
[2016-07-13] MEDS: CHLORHEXIDINE 0.12% 15 ML MOUTHWASH. MM SCH ×2 (08:56→20:48)
[2016-07-13] MEDS: PANTOPRAZOLE IV PUSH 40 MG VIAL. IVP SCH (08:57)
[2016-07-13] MEDS: ENOXAPARIN 40 MG/0.4 ML SYRINGE. SQ SCH (08:57)
[2016-07-13] MEDS: INSULIN ASPART 300 UNITS/3 ML INSULN.PEN SQ SCH ×4 (08:59→20:48)
[2016-07-13] MEDS ORDERED: TIOTROPIUM BROMIDE IH SCH (09:00)
[2016-07-13] MEDS ORDERED: methylPREDNISolone SOD SUCC PF 40 MG/ML VIAL. IV SCH (09:00)
[2016-07-13] MEDS: DILTIAZEM HCL 240 MG CAP.ER.24H PO SCH (09:00)
[2016-07-13] MEDS: PROMETH/CODEINE 6.25/10MG 5 ML SYRUP. PO SCH ×3 (09:00→16:49)
--- NOTE | 2016-07-13 09:14 | PDOC ---
PROGRESS NOTES Chief Complaint Chief Complaint Angioedema ASSESSMENT AND PLAN: 1. angioedema 2/2 ACEI likely; intubated for airway protection. Pulm managing vent 2. COPD (?exacerbation): intub.ed, on steroids, nebs 3. DM2: uncontrolled at admit, remains difficult to control with steroid rx. start insulin gtt for now 4. Hyperkalemia: anticipate drop with increased insulin. monitor closely 5. Hyponatremia: IVF. monitor 6. HTN: well controlled. 7. HLD: on statin (currently on hold w/ NPO) 8. hypoalbuminemia: severe; supplements when enteric nutrition established 9. Prophylaxis: lovenox, PPI 35 min CC time Vitals Vitals Vital Signs Date Time Temp Pulse Resp B/P Pulse Ox O2 Delivery O2 Flow Rate FiO2 07/13/16 08:00 63 16 165/84 100 Ventilator 07/13/16 07:00 97.6 97.6 07/12/16 19:00 4.0 Physical Exam General: Other (intub.ed, sedated) Heart: Regular rate Lungs: Clear, Other Abdomen: Normal bowel sounds, Soft Extremities: No edema Skin: No rashes Labs LABS Laboratory Tests Test 07/12/16 12:10 07/12/16 20:15 07/13/16 03:15 07/13/16 05:00 White Blood Count 6.9x10^3/uL (4.0-11.0) 5.9x10^3/uL (4.0-11.0) Red Blood Count 3.82x10^6/uL (4.30-5.70) 3.42x10^6/uL (4.30-5.70) Hemoglobin 10.6g/dL (13.0-17.5) 9.3g/dL (13.0-17.5) Hematocrit 32.5% (39.0-53.0) 29.0% (39.0-53.0) Mean Corpuscular Volume 85fL (79-100) 85fL (79-100) Mean Corpuscular Hemoglobin 28pg (25-35) 27pg (25-35) Mean Corpuscular Hemoglobin Concent 33g/dL (31-37) 32g/dL (31-37) Red Cell Distribution Width 13.8% (11.5-14.5) 13.4% (11.5-14.5) Platelet Count 502x10^3/uL (140-400) 462x10^3/uL (140-400) Neutrophils (%) (Auto) 74% (31-73) 82% (31-73) Lymphocytes (%) (Auto) 15% (24-48) 13% (24-48) Monocytes (%) (Auto) 10% (0-9) 4% (0-9) Eosinophils (%) (Auto) 1% (0-3) 0% (0-3) Basophils (%) (Auto) 0% (0-3) 1% (0-3) Neutrophils # (Auto) 5.1x10^3uL (1.8-7.7) 4.8x10^3uL (1.8-7.7) Lymphocytes # (Auto) 1.0x10^3/uL (1.0-4.8) 0.7x10^3/uL (1.0-4.8) Monocytes # (Auto) 0.7x10^3/uL (0.0-1.1) 0.3x10^3/uL (0.0-1.1) Eosinophils # (Auto) 0.1x10^3/uL (0.0-0.7) 0.0x10^3/uL (0.0-0.7) Basophils # (Auto) 0.0x10^3/uL (0.0-0.2) 0.0x10^3/uL (0.0-0.2) Sodium Level 132mmol/L (136-145) 132mmol/L (136-145) Potassium Level 4.5mmol/L (3.5-5.1) 5.7mmol/L (3.5-5.1) Chloride Level 94mmol/L (98-107) 98mmol/L (98-107) Carbon Dioxide Level 33mmol/L (21-32) 26mmol/L (21-32) Anion Gap 5 (6-14) 8 (6-14) Blood Urea Nitrogen 27mg/dL (8-26) 31mg/dL (8-26) Creatinine 1.3mg/dL (0.7-1.3) 1.2mg/dL (0.7-1.3) Estimated GFR (Cockcroft-Gault) 65.5 71.8 Glucose Level 522mg/dL (70-99) 375mg/dL (70-99) Calcium Level 9.4mg/dL (8.5-10.1) 8.8mg/dL (8.5-10.1) Troponin I Quantitative < 0.017ng/mL (0.000-0.055) O2 Saturation 95% (92-99) Arterial Blood pH 7.32 (7.35-7.45) Arterial Blood pCO2 at Patient Temp 53mmHg (35-46) Arterial Blood pO2 at Patient Temp 82mmHg (65-108) Arterial Blood HCO3 27mmol/L (21-28) Arterial Blood Base Excess 0mmol/L (-3-3) FiO2 30 Urine Collection Type U cath Urine Color [place] Urine Clarity Turbid Urine pH 5.0 Urine Specific [place] 1.020 Urine Protein 30mg/dL (NEG-TRACE) Urine Glucose (UA) 500mg/dL (NEG) Urine Ketones (Stick) Negativemg/dL (NEG) Urine Blood Moderate (NEG) Urine Nitrite Positive (NEG) Urine Bilirubin Negative (NEG) Urine Urobilinogen Dipstick 1.0mg/dL (0.2 mg/dL) Urine Leukocyte Esterase Large (NEG) Urine RBC >40/HPF (0-2) Urine WBC Tntc/HPF (0-4) Urine Bacteria Many/HPF (0-FEW) Prothrombin Time 14.7SEC (11.7-14.0) Prothromb Time International Ratio 1.2 (0.8-1.1) Activated Partial Thromboplast Time 35SEC (24-38) BUN/Creatinine Ratio 26 (6-20) Total Bilirubin 0.2mg/dL (0.2-1.0) Aspartate Amino Transf (AST/SGOT) 10U/L (15-37) Alanine Aminotransferase (ALT/SGPT) 12U/L (16-63) Alkaline Phosphatase 76U/L (46-116) Total Protein 7.1g/dL (6.4-8.2) Albumin 1.9g/dL (3.4-5.0) Albumin/Globulin Ratio 0.4 (1.0-1.7) Review of Systems Review of Systems sedated, intubated FER LEOS MD Jul 13, 2016 09:14
--- NOTE | 2016-07-13 09:36 | RAD ---
Portable chest, 07/13/2016: History: Respiratory failure, intubation Comparison is made to yesterday's study. The tip of the ET tube lies 7 cm above the herson. A right jugular central venous catheter extends into the superior vena cava. The heart size and pulmonary vascularity are normal. There is tortuosity and calcific plaquing of the thoracic aorta. There are scattered parenchymal scars. There is is unchanged blunting of the right lateral costophrenic angle with mild underlying parenchymal opacities. The pleural thickening has been present on multiple previous studies and appears to be due to scarring. No new pulmonary abnormality is seen. There is no evidence of left-sided pleural fluid. IMPRESSION: No significant change since yesterday's exam.
--- NOTE | 2016-07-13 10:26 | PDOC2 ---
JESSICA RINCON BULB BRANDER 07/13/16 1026: CONSULT Date of Consult Date of Consult DATE: 07/13/16 TIME: 10:20 Reason for Consult Reason for Consult: angioedema Referring Physician Referring Physician: ER Identification/Chief Complaint Chief Complaint facial swelling, tongue swelling Source Source: Chart review History of Present Illness Reason for Visit: Patient admitted for facial and tongue swelling, likely related to angioedema. Progressively worsened and required intubation. Now sedated, intubated, and mech vent. Past Medical History Cardiovascular: CAD, HTN, [place] Pulmonary: COPD Musculoskeletal: low back pain Endocrine: Diabetes Past Surgical History Past Surgical History: Other Family History Family History: No Significant, Hypertension Social History No ALCOHOL: none Drugs: None Current Problem List Problem List Problems Medical Problems: (1) COPD exacerbation Status: Acute (2) Hyperglycemia Status: Acute Current Medications Current Medications Current Medications Albuterol/ Ipratropium (Duoneb) 6 ml 1X ONCE NEB Last administered on 12:34; Start 07/12/16 at 12:30; Stop 07/12/16 at 12:31; Status DC Prednisone 60 mg 60 mg 1X ONCE PO Last administered on 07/12/16 12:40; Start 07/12/16 at 12:30; Stop 07/12/16 at 12:31; Status DC Sodium Chloride (Iv Sodium Chloride 0.9% 1000ml Bag) 1,000 ml @ 1,000 mls/hr 1X ONCE IV Last administered on 07/12/16 13:12; Start 07/12/16 at 13:15; Stop 07/12/16 at 14:14; Status DC Insulin Human Regular (Novolin R Vial) 10 unit 1X ONCE IV Last administered on 07/12/16 13:16; Start 07/12/16 at 13:15; Stop 07/12/16 at 13:16; Status DC Diphenhydramine HCl (Benadryl) 50 mg STK-MED ONCE .ROUTE ; Start 07/12/16 at 14: 55; Stop 07/12/16 at 14:56; Status DC Diphenhydramine HCl (Benadryl) 50 mg 1X ONCE IVP Last administered on 15:15; Start 07/12/16 at 15:15; Stop 07/12/16 at 15:16; Status DC Atorvastatin Calcium (Lipitor) 40 mg HS PO ; Start 07/12/16 at 21:00 Diltiazem HCl (Cardizem 24hr Cd) 240 mg DAILY PO ; Start 07/12/16 at 16:30 Insulin Aspart (Novolog) 10 units TIDAC SQ ; Start 07/12/16 at 16:30; Stop 07/12 at 16:30; Status DC Insulin Detemir (Levemir) 20 units QHS SQ ; Start 07/12/16 at 21:00; Stop at 21:00; Status DC Promethazine HCl/ Codeine (Phenergan With Codeine) 5 ml QID PO ; Start 07/12/16 at 17:00 Non-Formulary Medication 2 puff BID IH ; Start 07/12/16 at 21:00; Status UNV Non-Formulary Medication 2.5 gm DAILY IH ; Start 07/13/16 at 09:00; Status UNV Budesonide (Pulmicort) 0.5 mg RTBID NEB Last administered on 07/13/16 07:30; Start 07/12/16 at 20:00 Albuterol/ Ipratropium (Duoneb) 3 ml RTQID NEB Last administered on 07/13/16 07:30; Start 07/12/16 at 20:00 Methylprednisolone Sodium Succinate (Solu-Medrol 40mg Vial) 60 mg 1X ONCE IV Last administered on 07/12/16 16:06; Start 07/12/16 at 16:30; Stop 07/12/16 at 16:31; Status DC Methylprednisolone Sodium Succinate (Solu-Medrol 40mg Vial) 60 mg DAILY IV ; Start 07/13/16 at 09:00; Stop 07/13/16 at 09:00; Status DC Pantoprazole Sodium (Protonix Vial) 40 mg DAILY IVP Last administered on 08:57; Start 07/13/16 at 09:00 Diphenhydramine HCl 25 mg 25 mg PRN Q6HRS PRN IVP ANAPHYLAXIS Last administered on 07/12/16 16:06; Start 07/12/16 at 16:00 Sodium Chloride (Iv Sodium Chloride 0.9% 1000ml Bag) 1,000 ml @ 100 mls/hr Q10H IV Last administered on 07/13/16 02:30; Start 07/12/16 at 16:30 Albuterol/ Ipratropium (Duoneb) 3 ml QID NEB ; Start 07/12/16 at 17:00; Status UNV Albuterol Sulfate (Ventolin Neb Soln) 2.5 mg PRN Q2HR PRN NEB SHORTNESS OF BREATH; Start 07/12/16 at 16:00 Insulin Aspart (Novolog) 0-9 UNITS QID SQ Last administered on 07/13/16 08:59 ; Start 07/12/16 at 17:00 Dextrose 12.5 gm PRN Q15MIN PRN IV SEE COMMENTS; Start 07/12/16 at 16:00 Insulin Detemir (Levemir) 15 units QHS SQ ; Start 07/12/16 at 21:00; Stop at 21:00; Status DC Enoxaparin Sodium (Lovenox 40mg Syringe) 40 mg DAILY SQ Last administered on 08:57; Start 07/12/16 at 16:30 Insulin Detemir (Levemir) 20 units QHS SQ Last administered on 07/12/16 23:49 ; Start 07/12/16 at 21:00 Succinylcholine Chloride 200 mg 200 mg STK-MED ONCE .ROUTE ; Start 07/12/16 at 17:46; Stop 07/12/16 at 17:47; Status DC Propofol (Diprivan) 100 ml @ As Directed STK-MED ONCE IV ; Start 07/12/16 at 17 :46; Stop 07/12/16 at 17:47; Status DC Lidocaine HCl 100 mg STK-MED ONCE .ROUTE ; Start 07/12/16 at 18:02; Stop at 18:03; Status DC Ketamine HCl 500 mg 1X ONCE IV ; Start 07/12/16 at 18:30; Stop 07/12/16 at 18: 31; Status DC Midazolam HCl (Versed) 5 mg STK-MED ONCE .ROUTE ; Start 07/12/16 at 18:14; Stop 07/12/16 at 18:15; Status DC Midazolam HCl (Versed) 2 mg 1X ONCE IV ; Start 07/12/16 at 18:30; Stop at 18:31; Status DC Glycopyrrolate (Robinul) 1 mg 1X ONCE IV ; Start 07/12/16 at 18:30; Stop at 18:31; Status DC Oxymetazoline HCl (Afrin) 2 spray 1X ONCE NS ; Start 07/12/16 at 18:30; Stop at 18:31; Status DC Lidocaine HCl 30 ml STK-MED ONCE .ROUTE ; Start 07/12/16 at 18:19; Stop at 18:20; Status DC Vecuronium [place] 6 mg 6 mg PRN Q4HRS PRN IV ANXIETY / AGITATION Last administered on 07/12/16 19:55; Start 07/12/16 at 19:00 Propofol (Diprivan) 100 ml @ 0 mls/hr CONT PRN IV SEE I/O RECORD Last administered on 07/13/16 08:57; Start 07/12/16 at 19:00 Insulin Aspart 10 units 10 units 1X ONCE SQ Last administered on 07/12/16 19: 41; Start 07/12/16 at 19:45; Stop 07/12/16 at 19:46; Status DC Vecuronium [place]ford 100 mg/ Dextrose 100 ml @ 0 mls/hr CONT PRN IV SEE I/O RECORD Last administered on 07/12/16 23:34; Start 07/12/16 at 21:00 Fentanyl Citrate (Fentanyl 600 Mcg/30 ml [employer]) 30 ml @ 0 mls/hr CONT PRN IV PROTOCOL Last administered on 07/12/16 23:35; Start 07/12/16 at 22:00 Chlorhexidine Gluconate (Peridex) 15 ml BID MM Last administered on 07/13/16 08:56; Start 07/13/16 at 09:00 Methylprednisolone Sodium Succinate (Solu-Medrol 125mg Vial) 125 mg BID IV Last administered on 07/13/16 08:56; Start 07/13/16 at 09:00 Rocuronium Redford (Zemuron) 50 mg STK-MED ONCE .ROUTE ; Start 07/12/16 at 15:00 ; Stop 07/13/16 at 08:54; Status DC Glycopyrrolate (Robinul) 1 mg STK-MED ONCE .ROUTE ; Start 07/12/16 at 15:00; Stop 07/13/16 at 08:54; Status DC Lidocaine HCl 30 ml STK-MED ONCE .ROUTE ; Start 07/12/16 at 18:00; Stop at 09:05; Status DC Midazolam HCl (Versed) 5 mg STK-MED ONCE .ROUTE ; Start 07/12/16 at 18:00; Stop 07/13/16 at 09:05; Status DC Propofol (Diprivan) 1,000 mg STK-MED ONCE IV ; Start 07/12/16 at 18:00; Stop at 09:05; Status DC Succinylcholine Chloride (Anectine) 200 mg STK-MED ONCE .ROUTE ; Start 07/12/16 at 18:00; Stop 07/13/16 at 09:05; Status DC Active Scripts Active Levemir Flextouch (Insulin Detemir) 100 Unit/1 Ml Insuln.pen 20 Units SQ QHS 30 Days Novolog Flexpen (Insulin Aspart) 100 Unit/1 Ml Insuln.pen 10 Units SQ TIDAC 30 Days Reported Advair 100-50 Diskus (Fluticasone/Salmeterol) 1 Each Disk.w.dev 1 Puff IH BID Spiriva Respimat (Tiotropium Redford) 4 Gm Mist.inhal 2.5 Gm IH DAILY Symbicort 160-4.5 Mcg Inhaler (Budesonide/Formoterol Fumarate) 10.2 Gm Hfa.aer.ad 2 Puff IH BID Atorvastatin Calcium 20 Mg Tablet 20 Mg PO HS Lisinopril-Hctz 10-12.5 Mg Tab (Lisinopril/Hydrochlorothiazide) 1 Each Tablet 1 Tab PO DAILY Isosorbide Mononitrate Er (Isosorbide Mononitrate) 120 Mg Tab.er.24h 120 Mg PO DAILY Novolin N (Nph, Human Insulin Isophane) 100 Unit/1 Ml Vial 0 SQ Promethazine-Codeine Syrup (Promethazine Hcl/Codeine) 118 Ml Syrup 5 Ml PO Q4- 6HRS Diltiazem 24HR Cd (Diltiazem Hcl) 240 Mg Cap.er.24h 240 Mg PO DAILY NITROGLYCERIN SubLingual (Nitroglycerin) 0.4 Mg Tab.subl 0.4 Mg SL PRN Q5MIN PRN Atorvastatin Calcium 40 Mg Tablet 40 Mg PO HS Allergies Allergies: Coded Allergies: lisinopril (Verified Allergy, Severe, Anaphylaxis, 07/13/16) Emergent Intubation 3/20/17. ROS Review of System unable to obtain Physical Exam General: Other (sedated, facial swelling) HEENT: Other (intubated , tongue swelling ) Lungs: Other (mech vent) Heart: Regular rate, Normal S1, Normal S2 Abdomen: Soft, No tenderness Extremities: No clubbing, No cyanosis Vitals VITALS Vital Signs Date Time Temp Pulse Resp B/P Pulse Ox O2 Delivery O2 Flow Rate FiO2 07/13/16 09:13 100 Ventilator 07/13/16 08:00 63 16 165/84 07/13/16 07:00 97.6 97.6 07/12/16 19:00 4.0 Labs Labs Laboratory Tests Test 07/12/16 12:10 07/12/16 20:15 07/13/16 03:15 07/13/16 05:00 White Blood Count 6.9x10^3/uL (4.0-11.0) 5.9x10^3/uL (4.0-11.0) Red Blood Count 3.82x10^6/uL (4.30-5.70) 3.42x10^6/uL (4.30-5.70) Hemoglobin 10.6g/dL (13.0-17.5) 9.3g/dL (13.0-17.5) Hematocrit 32.5% (39.0-53.0) 29.0% (39.0-53.0) Mean Corpuscular Volume 85fL (79-100) 85fL (79-100) Mean Corpuscular Hemoglobin 28pg (25-35) 27pg (25-35) Mean Corpuscular Hemoglobin Concent 33g/dL (31-37) 32g/dL (31-37) Red Cell Distribution Width 13.8% (11.5-14.5) 13.4% (11.5-14.5) Platelet Count 502x10^3/uL (140-400) 462x10^3/uL (140-400) Neutrophils (%) (Auto) 74% (31-73) 82% (31-73) Lymphocytes (%) (Auto) 15% (24-48) 13% (24-48) Monocytes (%) (Auto) 10% (0-9) 4% (0-9) Eosinophils (%) (Auto) 1% (0-3) 0% (0-3) Basophils (%) (Auto) 0% (0-3) 1% (0-3) Neutrophils # (Auto) 5.1x10^3uL (1.8-7.7) 4.8x10^3uL (1.8-7.7) Lymphocytes # (Auto) 1.0x10^3/uL (1.0-4.8) 0.7x10^3/uL (1.0-4.8) Monocytes # (Auto) 0.7x10^3/uL (0.0-1.1) 0.3x10^3/uL (0.0-1.1) Eosinophils # (Auto) 0.1x10^3/uL (0.0-0.7) 0.0x10^3/uL (0.0-0.7) Basophils # (Auto) 0.0x10^3/uL (0.0-0.2) 0.0x10^3/uL (0.0-0.2) Sodium Level 132mmol/L (136-145) 132mmol/L (136-145) Potassium Level 4.5mmol/L (3.5-5.1) 5.7mmol/L (3.5-5.1) Chloride Level 94mmol/L (98-107) 98mmol/L (98-107) Carbon Dioxide Level 33mmol/L (21-32) 26mmol/L (21-32) Anion Gap 5 (6-14) 8 (6-14) Blood Urea Nitrogen 27mg/dL (8-26) 31mg/dL (8-26) Creatinine 1.3mg/dL (0.7-1.3) 1.2mg/dL (0.7-1.3) Estimated GFR (Cockcroft-Gault) 65.5 71.8 Glucose Level 522mg/dL (70-99) 375mg/dL (70-99) Calcium Level 9.4mg/dL (8.5-10.1) 8.8mg/dL (8.5-10.1) Troponin I Quantitative < 0.017ng/mL (0.000-0.055) O2 Saturation 95% (92-99) Arterial Blood pH 7.32 (7.35-7.45) Arterial Blood pCO2 at Patient Temp 53mmHg (35-46) Arterial Blood pO2 at Patient Temp 82mmHg (65-108) Arterial Blood HCO3 27mmol/L (21-28) Arterial Blood Base Excess 0mmol/L (-3-3) FiO2 30 Urine Collection Type U cath Urine Color Rimma Urine Clarity Turbid Urine pH 5.0 Urine Specific [place] 1.020 Urine Protein 30mg/dL (NEG-TRACE) Urine Glucose (UA) 500mg/dL (NEG) Urine Ketones (Stick) Negativemg/dL (NEG) Urine Blood Moderate (NEG) Urine Nitrite Positive (NEG) Urine Bilirubin Negative (NEG) Urine Urobilinogen Dipstick 1.0mg/dL (0.2 mg/dL) Urine Leukocyte Esterase Large (NEG) Urine RBC >40/HPF (0-2) Urine WBC Tntc/HPF (0-4) Urine Bacteria Many/HPF (0-FEW) Prothrombin Time 14.7SEC (11.7-14.0) Prothromb Time International Ratio 1.2 (0.8-1.1) Activated Partial Thromboplast Time 35SEC (24-38) BUN/Creatinine Ratio 26 (6-20) Total Bilirubin 0.2mg/dL (0.2-1.0) Aspartate Amino Transf (AST/SGOT) 10U/L (15-37) Alanine Aminotransferase (ALT/SGPT) 12U/L (16-63) Alkaline Phosphatase 76U/L (46-116) Total Protein 7.1g/dL (6.4-8.2) Albumin 1.9g/dL (3.4-5.0) Albumin/Globulin Ratio 0.4 (1.0-1.7) Laboratory Tests Test 07/12/16 12:10 07/12/16 20:15 07/13/16 03:15 07/13/16 05:00 White Blood Count 6.9x10^3/uL (4.0-11.0) 5.9x10^3/uL (4.0-11.0) Red Blood Count 3.82x10^6/uL (4.30-5.70) 3.42x10^6/uL (4.30-5.70) Hemoglobin 10.6g/dL (13.0-17.5) 9.3g/dL (13.0-17.5) Hematocrit 32.5% (39.0-53.0) 29.0% (39.0-53.0) Mean Corpuscular Volume 85fL (79-100) 85fL (79-100) Mean Corpuscular Hemoglobin 28pg (25-35) 27pg (25-35) Mean Corpuscular Hemoglobin Concent 33g/dL (31-37) 32g/dL (31-37) Red Cell Distribution Width 13.8% (11.5-14.5) 13.4% (11.5-14.5) Platelet Count 502x10^3/uL (140-400) 462x10^3/uL (140-400) Neutrophils (%) (Auto) 74% (31-73) 82% (31-73) Lymphocytes (%) (Auto) 15% (24-48) 13% (24-48) Monocytes (%) (Auto) 10% (0-9) 4% (0-9) Eosinophils (%) (Auto) 1% (0-3) 0% (0-3) Basophils (%) (Auto) 0% (0-3) 1% (0-3) Neutrophils # (Auto) 5.1x10^3uL (1.8-7.7) 4.8x10^3uL (1.8-7.7) Lymphocytes # (Auto) 1.0x10^3/uL (1.0-4.8) 0.7x10^3/uL (1.0-4.8) Monocytes # (Auto) 0.7x10^3/uL (0.0-1.1) 0.3x10^3/uL (0.0-1.1) Eosinophils # (Auto) 0.1x10^3/uL (0.0-0.7) 0.0x10^3/uL (0.0-0.7) Basophils # (Auto) 0.0x10^3/uL (0.0-0.2) 0.0x10^3/uL (0.0-0.2) Sodium Level 132mmol/L (136-145) 132mmol/L (136-145) Potassium Level 4.5mmol/L (3.5-5.1) 5.7mmol/L (3.5-5.1) Chloride Level 94mmol/L (98-107) 98mmol/L (98-107) Carbon Dioxide Level 33mmol/L (21-32) 26mmol/L (21-32) Anion Gap 5 (6-14) 8 (6-14) Blood Urea Nitrogen 27mg/dL (8-26) 31mg/dL (8-26) Creatinine 1.3mg/dL (0.7-1.3) 1.2mg/dL (0.7-1.3) Estimated GFR (Cockcroft-Gault) 65.5 71.8 Glucose Level 522mg/dL (70-99) 375mg/dL (70-99) Calcium Level 9.4mg/dL (8.5-10.1) 8.8mg/dL (8.5-10.1) Troponin I Quantitative < 0.017ng/mL (0.000-0.055) O2 Saturation 95% (92-99) Arterial Blood pH 7.32 (7.35-7.45) Arterial Blood pCO2 at Patient Temp 53mmHg (35-46) Arterial Blood pO2 at Patient Temp 82mmHg (65-108) Arterial Blood HCO3 27mmol/L (21-28) Arterial Blood Base Excess 0mmol/L (-3-3) FiO2 30 Urine Collection Type U cath Urine Color Rimma Urine Clarity Turbid Urine pH 5.0 Urine Specific [place] 1.020 Urine Protein 30mg/dL (NEG-TRACE) Urine Glucose (UA) 500mg/dL (NEG) Urine Ketones (Stick) Negativemg/dL (NEG) Urine Blood Moderate (NEG) Urine Nitrite Positive (NEG) Urine Bilirubin Negative (NEG) Urine Urobilinogen Dipstick 1.0mg/dL (0.2 mg/dL) Urine Leukocyte Esterase Large (NEG) Urine RBC >40/HPF (0-2) Urine WBC Tntc/HPF (0-4) Urine Bacteria Many/HPF (0-FEW) Prothrombin Time 14.7SEC (11.7-14.0) Prothromb Time International Ratio 1.2 (0.8-1.1) Activated Partial Thromboplast Time 35SEC (24-38) BUN/Creatinine Ratio 26 (6-20) Total Bilirubin 0.2mg/dL (0.2-1.0) Aspartate Amino Transf (AST/SGOT) 10U/L (15-37) Alanine Aminotransferase (ALT/SGPT) 12U/L (16-63) Alkaline Phosphatase 76U/L (46-116) Total Protein 7.1g/dL (6.4-8.2) Albumin 1.9g/dL (3.4-5.0) Albumin/Globulin Ratio 0.4 (1.0-1.7) Assessment/Plan Assessment/Plan angioedema, likely ACEI related COPD dm hyperkalemia moderate to severe malnutrition-albumin 1.9 resp failure requiring intubation Dr Henry will follow, any further compromised airway may require trach LAMAR HENRY MD 07/13/16 1035: CONSULT Allergies Allergies: Coded Allergies: lisinopril (Verified Allergy, Severe, Anaphylaxis, 07/13/16) Emergent Intubation 07/12/16. Assessment/Plan Assessment/Plan Pt seen and examined. Agree with Ms. Rincon's note Was present for intubation last night as back up will remain available for surgical airway, if needed hopefully will resolve without additional intervention Thanks for consult! JESSICA RINCON APRN Jul 13, 2016 10:26 LAMAR HENRY MD Jul 13, 2016 10:35
[2016-07-13] MEDS ORDERED: MINERAL OIL/PETROLATUM,WHITE OPHTH OINT 3.5GM TUBE. OU PRN (11:00)
--- NOTE | 2016-07-13 11:28 | PDOC ---
PULMONARY PROGRESS NOTES Vitals Vital Signs Date Time Temp Pulse Resp B/P Pulse Ox O2 Delivery O2 Flow Rate FiO2 07/13/16 10:00 72 16 135/67 98 Ventilator 07/13/16 07:00 97.6 97.6 07/12/16 19:00 4.0 General: Alert, No acute distress Lungs: Wheezing, Other Cardiovascular: S2, Other Abdomen: Soft, Non-tender Extremities: No Edema Labs Laboratory Tests Test 07/12/16 12:10 07/12/16 20:15 07/13/16 03:15 07/13/16 05:00 White Blood Count 6.9x10^3/uL (4.0-11.0) 5.9x10^3/uL (4.0-11.0) Red Blood Count 3.82x10^6/uL (4.30-5.70) 3.42x10^6/uL (4.30-5.70) Hemoglobin 10.6g/dL (13.0-17.5) 9.3g/dL (13.0-17.5) Hematocrit 32.5% (39.0-53.0) 29.0% (39.0-53.0) Mean Corpuscular Volume 85fL (79-100) 85fL (79-100) Mean Corpuscular Hemoglobin 28pg (25-35) 27pg (25-35) Mean Corpuscular Hemoglobin Concent 33g/dL (31-37) 32g/dL (31-37) Red Cell Distribution Width 13.8% (11.5-14.5) 13.4% (11.5-14.5) Platelet Count 502x10^3/uL (140-400) 462x10^3/uL (140-400) Neutrophils (%) (Auto) 74% (31-73) 82% (31-73) Lymphocytes (%) (Auto) 15% (24-48) 13% (24-48) Monocytes (%) (Auto) 10% (0-9) 4% (0-9) Eosinophils (%) (Auto) 1% (0-3) 0% (0-3) Basophils (%) (Auto) 0% (0-3) 1% (0-3) Neutrophils # (Auto) 5.1x10^3uL (1.8-7.7) 4.8x10^3uL (1.8-7.7) Lymphocytes # (Auto) 1.0x10^3/uL (1.0-4.8) 0.7x10^3/uL (1.0-4.8) Monocytes # (Auto) 0.7x10^3/uL (0.0-1.1) 0.3x10^3/uL (0.0-1.1) Eosinophils # (Auto) 0.1x10^3/uL (0.0-0.7) 0.0x10^3/uL (0.0-0.7) Basophils # (Auto) 0.0x10^3/uL (0.0-0.2) 0.0x10^3/uL (0.0-0.2) Sodium Level 132mmol/L (136-145) 132mmol/L (136-145) Potassium Level 4.5mmol/L (3.5-5.1) 5.7mmol/L (3.5-5.1) Chloride Level 94mmol/L (98-107) 98mmol/L (98-107) Carbon Dioxide Level 33mmol/L (21-32) 26mmol/L (21-32) Anion Gap 5 (6-14) 8 (6-14) Blood Urea Nitrogen 27mg/dL (8-26) 31mg/dL (8-26) Creatinine 1.3mg/dL (0.7-1.3) 1.2mg/dL (0.7-1.3) Estimated GFR (Cockcroft-Gault) 65.5 71.8 Glucose Level 522mg/dL (70-99) 375mg/dL (70-99) Calcium Level 9.4mg/dL (8.5-10.1) 8.8mg/dL (8.5-10.1) Troponin I Quantitative < 0.017ng/mL (0.000-0.055) O2 Saturation 95% (92-99) Arterial Blood pH 7.32 (7.35-7.45) Arterial Blood pCO2 at Patient Temp 53mmHg (35-46) Arterial Blood pO2 at Patient Temp 82mmHg (65-108) Arterial Blood HCO3 27mmol/L (21-28) Arterial Blood Base Excess 0mmol/L (-3-3) FiO2 30 Urine Collection Type U cath Urine Color [place]ma Urine Clarity Turbid Urine pH 5.0 Urine Specific [place] 1.020 Urine Protein 30mg/dL (NEG-TRACE) Urine Glucose (UA) 500mg/dL (NEG) Urine Ketones (Stick) Negativemg/dL (NEG) Urine Blood Moderate (NEG) Urine Nitrite Positive (NEG) Urine Bilirubin Negative (NEG) Urine Urobilinogen Dipstick 1.0mg/dL (0.2 mg/dL) Urine Leukocyte Esterase Large (NEG) Urine RBC >40/HPF (0-2) Urine WBC Tntc/HPF (0-4) Urine Bacteria Many/HPF (0-FEW) Prothrombin Time 14.7SEC (11.7-14.0) Prothromb Time International Ratio 1.2 (0.8-1.1) Activated Partial Thromboplast Time 35SEC (24-38) BUN/Creatinine Ratio 26 (6-20) Total Bilirubin 0.2mg/dL (0.2-1.0) Aspartate Amino Transf (AST/SGOT) 10U/L (15-37) Alanine Aminotransferase (ALT/SGPT) 12U/L (16-63) Alkaline Phosphatase 76U/L (46-116) Total Protein 7.1g/dL (6.4-8.2) Albumin 1.9g/dL (3.4-5.0) Albumin/Globulin Ratio 0.4 (1.0-1.7) Laboratory Tests Test 07/12/16 12:10 07/12/16 20:15 07/13/16 03:15 07/13/16 05:00 White Blood Count 6.9x10^3/uL (4.0-11.0) 5.9x10^3/uL (4.0-11.0) Red Blood Count 3.82x10^6/uL (4.30-5.70) 3.42x10^6/uL (4.30-5.70) Hemoglobin 10.6g/dL (13.0-17.5) 9.3g/dL (13.0-17.5) Hematocrit 32.5% (39.0-53.0) 29.0% (39.0-53.0) Mean Corpuscular Volume 85fL (79-100) 85fL (79-100) Mean Corpuscular Hemoglobin 28pg (25-35) 27pg (25-35) Mean Corpuscular Hemoglobin Concent 33g/dL (31-37) 32g/dL (31-37) Red Cell Distribution Width 13.8% (11.5-14.5) 13.4% (11.5-14.5) Platelet Count 502x10^3/uL (140-400) 462x10^3/uL (140-400) Neutrophils (%) (Auto) 74% (31-73) 82% (31-73) Lymphocytes (%) (Auto) 15% (24-48) 13% (24-48) Monocytes (%) (Auto) 10% (0-9) 4% (0-9) Eosinophils (%) (Auto) 1% (0-3) 0% (0-3) Basophils (%) (Auto) 0% (0-3) 1% (0-3) Neutrophils # (Auto) 5.1x10^3uL (1.8-7.7) 4.8x10^3uL (1.8-7.7) Lymphocytes # (Auto) 1.0x10^3/uL (1.0-4.8) 0.7x10^3/uL (1.0-4.8) Monocytes # (Auto) 0.7x10^3/uL (0.0-1.1) 0.3x10^3/uL (0.0-1.1) Eosinophils # (Auto) 0.1x10^3/uL (0.0-0.7) 0.0x10^3/uL (0.0-0.7) Basophils # (Auto) 0.0x10^3/uL (0.0-0.2) 0.0x10^3/uL (0.0-0.2) Sodium Level 132mmol/L (136-145) 132mmol/L (136-145) Potassium Level 4.5mmol/L (3.5-5.1) 5.7mmol/L (3.5-5.1) Chloride Level 94mmol/L (98-107) 98mmol/L (98-107) Carbon Dioxide Level 33mmol/L (21-32) 26mmol/L (21-32) Anion Gap 5 (6-14) 8 (6-14) Blood Urea Nitrogen 27mg/dL (8-26) 31mg/dL (8-26) Creatinine 1.3mg/dL (0.7-1.3) 1.2mg/dL (0.7-1.3) Estimated GFR (Cockcroft-Gault) 65.5 71.8 Glucose Level 522mg/dL (70-99) 375mg/dL (70-99) Calcium Level 9.4mg/dL (8.5-10.1) 8.8mg/dL (8.5-10.1) Troponin I Quantitative < 0.017ng/mL (0.000-0.055) O2 Saturation 95% (92-99) Arterial Blood pH 7.32 (7.35-7.45) Arterial Blood pCO2 at Patient Temp 53mmHg (35-46) Arterial Blood pO2 at Patient Temp 82mmHg (65-108) Arterial Blood HCO3 27mmol/L (21-28) Arterial Blood Base Excess 0mmol/L (-3-3) FiO2 30 Urine Collection Type U cath Urine Color [place] Urine Clarity Turbid Urine pH 5.0 Urine Specific [place] 1.020 Urine Protein 30mg/dL (NEG-TRACE) Urine Glucose (UA) 500mg/dL (NEG) Urine Ketones (Stick) Negativemg/dL (NEG) Urine Blood Moderate (NEG) Urine Nitrite Positive (NEG) Urine Bilirubin Negative (NEG) Urine Urobilinogen Dipstick 1.0mg/dL (0.2 mg/dL) Urine Leukocyte Esterase Large (NEG) Urine RBC >40/HPF (0-2) Urine WBC Tntc/HPF (0-4) Urine Bacteria Many/HPF (0-FEW) Prothrombin Time 14.7SEC (11.7-14.0) Prothromb Time International Ratio 1.2 (0.8-1.1) Activated Partial Thromboplast Time 35SEC (24-38) BUN/Creatinine Ratio 26 (6-20) Total Bilirubin 0.2mg/dL (0.2-1.0) Aspartate Amino Transf (AST/SGOT) 10U/L (15-37) Alanine Aminotransferase (ALT/SGPT) 12U/L (16-63) Alkaline Phosphatase 76U/L (46-116) Total Protein 7.1g/dL (6.4-8.2) Albumin 1.9g/dL (3.4-5.0) Albumin/Globulin Ratio 0.4 (1.0-1.7) Medications Active Scripts Medications Dose Route/Sig Days Date Category Advair 100-50 Diskus (Fluticasone/Salmeterol) 1 Each Disk.w.dev 1 Puff IH BID 06/21/16 Reported Spiriva Respimat (Tiotropium [place]) 4 Gm Mist.inhal 2.5 Gm IH DAILY 06/21/16 Reported Symbicort 160-4.5 Mcg Inhaler (Budesonide/Formoterol Fumarate) 10.2 Gm Hfa.aer.ad 2 Puff IH BID 06/21/16 Reported Atorvastatin Calcium 20 Mg Tablet 20 Mg PO HS 06/21/16 Reported Lisinopril-Hctz 10-12.5 Mg Tab (Lisinopril/Hydrochlorothiazide) 1 Each Tablet 1 Tab PO DAILY 06/21/16 Reported Isosorbide Mononitrate Er (Isosorbide Mononitrate) 120 Mg Tab.er.24h 120 Mg PO DAILY 06/21/16 Reported Levemir Flextouch (Insulin Detemir) 100 Unit/1 Ml Insuln.pen 20 Units SQ QHS 30 11/24/15 Rx Novolog Flexpen (Insulin Aspart) 100 Unit/1 Ml Insuln.pen 10 Units SQ TIDAC 30 11/24/15 Rx Novolin N (Nph, Human Insulin Isophane) 100 Unit/1 Ml Vial 0 SQ 11/18/15 Reported Promethazine-Codeine Syrup (Promethazine Hcl/Codeine) 118 Ml Syrup 5 Ml PO Q4-6HRS 11/18/15 Reported Diltiazem 24HR Cd (Diltiazem Hcl) 240 Mg Cap.er.24h 240 Mg PO DAILY 11/18/15 Reported NITROGLYCERIN SubLingual (Nitroglycerin) 0.4 Mg Tab.subl 0.4 Mg SL PRN Q5MIN PRN 11/18/15 Reported Atorvastatin Calcium 40 Mg Tablet 40 Mg PO HS 11/18/15 Reported Impression . FULL CONSULT DICTATED RESP FAILURE SEC TO ANGIOEDEMA THANKS DOUGIE RIVAS MD Jul 13, 2016 11:28
[2016-07-13] MEDS ORDERED: INSULIN ASPART 300 UNITS/3 ML INSULN.PEN SQ STA (12:17)
[2016-07-13 12:51] LABS: FIO2 ABG 30
[2016-07-13] MEDS: FENTANYL STANDARD PCA 30 ML IV PRN (14:09)
[2016-07-13] MEDS ORDERED: INSULIN ASPART 300 UNITS/3 ML INSULN.PEN SQ ONE (14:30)
[2016-07-13] MEDS: DEXTROSE 5% IV PRN (20:48)
[2016-07-13] MEDS: VECURONIUM BROMIDE IV PRN (20:48)
[2016-07-13] MEDS ORDERED: INSULIN DETEMIR 300 UNITS/3 ML INSULN.PEN. SQ SCH (21:00)
[2016-07-13] MEDS: ATORVASTATIN CALCIUM 40 MG TABLET. PO SCH (21:00)
--- NOTE | 2016-07-13 23:07 | CONS ---
DATE OF CONSULTATION: 07/13/2016 ATTENDING PHYSICIAN: Dr. Tan. REASON FOR CONSULTATION: The patient is seen in pulmonary consultation at the request of Dr. Tan for acute respiratory failure, vent management. HISTORY OF PRESENT ILLNESS: The patient is a 75-year-old that presented to the Emergency Department with facial swelling over the weekend, has some nausea, vomiting. He reports waking up this Tuesday morning with swelling in his face. He states that initially the swelling was going down, then it eventually got worse. He was on lisinopril and has been on lisinopril for quite some time. The patient basically was diagnosed with angioedema, probably related to lisinopril. He required emergent intubation. Yesterday, he was emergently intubated by the anesthesia team. He is currently on mechanical ventilation. His tongue is markedly swollen. He is on assist control ventilation. He has been hemodynamically stable. PAST MEDICAL HISTORY: COPD, hypertension, previous [place], coronary artery disease, diabetes. PAST SURGICAL HISTORY: None. FAMILY HISTORY: Hypertension. ALLERGIES: No prior allergies. He is ____ allergic to ADAN inhibitors. SOCIAL HISTORY: The patient used to smoke, quit some time ago. REVIEW OF SYSTEMS: Unobtainable secondary to the patient's condition. PHYSICAL EXAMINATION: GENERAL: The patient was on assist control ventilation. VITAL SIGNS: Noted, O2 saturation was greater than 92%. HEENT: Eyes, the sclerae were nonicteric. Oropharynx, the tongue was protruding out of his mouth, massively enlarged. NECK: Jugular venous distention was not elevated. LUNGS: Clear to auscultation. No wheezes. CARDIOVASCULAR: Regular rate and rhythm with S1, S2, no S3. ABDOMEN: Soft, nontender, nondistended. EXTREMITIES: No clubbing, cyanosis or edema. NEUROLOGIC: The patient was sedated. LABORATORY DATA: Arterial blood gas this morning, yesterday pH of 7.32, PaCO2 of 53, PaO2 of 82. Chest x-ray was reviewed. There are some scattered parenchymal opacities which are related to scarring. There is pleural thickening. ET tube is approximately 7 cm above the herson. Electrolytes were noted. BUN and creatinine was noted. White count was normal. Hemoglobin and hematocrit were noted. IMPRESSION: 1. Acute respiratory failure secondary to angioedema. 2. Lisinopril induced angioedema. 3. Chronic obstructive pulmonary disease. 4. Hypertension. 5. Coronary artery disease. PLAN: 1. Continue current mechanical support. The patient is not ready to be weaned until his angioedema subsides. 2. Continue steroids. 3. DVT and GI prophylaxis. 4. Initiate tube feeding when possible. I do appreciate the privilege in sharing in the patient's care. Total cumulative critical care time of 40 minutes. DOUGIE RIVAS MD DR: MERYL/taylor JOB#: [id number] / [id number]
[2016-07-14] VITALS (24 sets, daily range): BP systolic 107–176; BP diastolic 60–95
[2016-07-14] MEDS: IV NORMAL SALINE 1000ML BAG 1,000 ML IV SCH (01:21)
[2016-07-14] MEDS: PROPOFOL 100 ML IV PRN ×3 (02:10→13:42)
[2016-07-14 05:45] LABS: CALCIUM 8.8 mg/dL (8.5-10.1); CREATININE 1.5 mg/dL (0.7-1.3); GFR 55.5
[2016-07-14 05:55] LABS: POTASSIUM 6.1 mmol/L (3.5-5.1)
[2016-07-14] MEDS: IPRATRPIUM/ALBUTEROL 0.5/2.5MG 3 ML NEBU. NEB SCH ×4 (07:45→20:10)
[2016-07-14 08:06] LABS: HCO3 ABG 24 mmol/L (21-28); PCO2 ABG 52 mmHg (35-46); PH ABG 7.29 (7.35-7.45); PO2 ABG 87 mmHg (65-108); SAT O2 ABG 95 % (92-99)
[2016-07-14 08:08] LABS: FIO2 ABG 30
[2016-07-14] MEDS: methylPREDNISolone SOD SUCC PF 125 MG/2 ML VIAL. IV SCH ×2 (08:33→21:02)
[2016-07-14] MEDS: PANTOPRAZOLE IV PUSH 40 MG VIAL. IVP SCH (08:34)
[2016-07-14] MEDS: CHLORHEXIDINE 0.12% 15 ML MOUTHWASH. MM SCH ×2 (08:35→21:02)
[2016-07-14] MEDS: ENOXAPARIN 40 MG/0.4 ML SYRINGE. SQ SCH (08:36)
[2016-07-14] MEDS: INSULIN ASPART 300 UNITS/3 ML INSULN.PEN SQ SCH (08:37)
[2016-07-14] MEDS ORDERED: INSULIN REGULAR VIAL 150 UNIT in 0.9 % SODIUM CHLORIDE 150ML 150 ML IV PRN (09:30)
[2016-07-14] MEDS: FENTANYL STANDARD PCA 30 ML IV PRN (09:33)
--- NOTE | 2016-07-14 09:34 | PDOC ---
PULMONARY PROGRESS NOTES Subjective sedated Vitals Vital Signs Date Time Temp Pulse Resp B/P Pulse Ox O2 Delivery O2 Flow Rate FiO2 07/14/16 09:01 99 Ventilator 07/14/16 08:00 98.1 80 18 120/63 98.1 Lungs: Clear Cardiovascular: S1, S2 Abdomen: Soft, Non-tender Extremities: No Edema Labs Laboratory Tests Test 07/12/16 12:10 07/12/16 19:33 07/12/16 19:50 07/12/16 20:15 White Blood Count 6.9x10^3/uL (4.0-11.0) Red Blood Count 3.82x10^6/uL (4.30-5.70) Hemoglobin 10.6g/dL (13.0-17.5) Hematocrit 32.5% (39.0-53.0) Mean Corpuscular Volume 85fL (79-100) Mean Corpuscular Hemoglobin 28pg (25-35) Mean Corpuscular Hemoglobin Concent 33g/dL (31-37) Red Cell Distribution Width 13.8% (11.5-14.5) Platelet Count 502x10^3/uL (140-400) Neutrophils (%) (Auto) 74% (31-73) Lymphocytes (%) (Auto) 15% (24-48) Monocytes (%) (Auto) 10% (0-9) Eosinophils (%) (Auto) 1% (0-3) Basophils (%) (Auto) 0% (0-3) Neutrophils # (Auto) 5.1x10^3uL (1.8-7.7) Lymphocytes # (Auto) 1.0x10^3/uL (1.0-4.8) Monocytes # (Auto) 0.7x10^3/uL (0.0-1.1) Eosinophils # (Auto) 0.1x10^3/uL (0.0-0.7) Basophils # (Auto) 0.0x10^3/uL (0.0-0.2) Sodium Level 132mmol/L (136-145) Potassium Level 4.5mmol/L (3.5-5.1) Chloride Level 94mmol/L (98-107) Carbon Dioxide Level 33mmol/L (21-32) Anion Gap 5 (6-14) Blood Urea Nitrogen 27mg/dL (8-26) Creatinine 1.3mg/dL (0.7-1.3) Estimated GFR (Cockcroft-Gault) 65.5 Glucose Level 522mg/dL (70-99) Calcium Level 9.4mg/dL (8.5-10.1) Troponin I Quantitative < 0.017ng/mL (0.000-0.055) Glucose (Fingerstick) 353mg/dL (70-99) Nasal Screen MRSA (PCR) Positive (Negative) O2 Saturation 95% (92-99) Arterial Blood pH 7.32 (7.35-7.45) Arterial Blood pCO2 at Patient Temp 53mmHg (35-46) Arterial Blood pO2 at Patient Temp 82mmHg (65-108) Arterial Blood HCO3 27mmol/L (21-28) Arterial Blood Base Excess 0mmol/L (-3-3) FiO2 30 Test 07/12/16 23:47 07/13/16 03:15 07/13/16 05:00 07/13/16 08:00 Glucose (Fingerstick) 363mg/dL (70-99) Urine Collection Type U cath Urine Color [place] Urine Clarity Turbid Urine pH 5.0 Urine Specific [place] 1.020 Urine Protein 30mg/dL (NEG-TRACE) Urine Glucose (UA) 500mg/dL (NEG) Urine Ketones (Stick) Negativemg/dL (NEG) Urine Blood Moderate (NEG) Urine Nitrite Positive (NEG) Urine Bilirubin Negative (NEG) Urine Urobilinogen Dipstick 1.0mg/dL (0.2 mg/dL) Urine Leukocyte Esterase Large (NEG) Urine RBC >40/HPF (0-2) Urine WBC Tntc/HPF (0-4) Urine Bacteria Many/HPF (0-FEW) White Blood Count 5.9x10^3/uL (4.0-11.0) Red Blood Count 3.42x10^6/uL (4.30-5.70) Hemoglobin 9.3g/dL (13.0-17.5) Hematocrit 29.0% (39.0-53.0) Mean Corpuscular Volume 85fL (79-100) Mean Corpuscular Hemoglobin 27pg (25-35) Mean Corpuscular Hemoglobin Concent 32g/dL (31-37) Red Cell Distribution Width 13.4% (11.5-14.5) Platelet Count 462x10^3/uL (140-400) Neutrophils (%) (Auto) 82% (31-73) Lymphocytes (%) (Auto) 13% (24-48) Monocytes (%) (Auto) 4% (0-9) Eosinophils (%) (Auto) 0% (0-3) Basophils (%) (Auto) 1% (0-3) Neutrophils # (Auto) 4.8x10^3uL (1.8-7.7) Lymphocytes # (Auto) 0.7x10^3/uL (1.0-4.8) Monocytes # (Auto) 0.3x10^3/uL (0.0-1.1) Eosinophils # (Auto) 0.0x10^3/uL (0.0-0.7) Basophils # (Auto) 0.0x10^3/uL (0.0-0.2) Prothrombin Time 14.7SEC (11.7-14.0) Prothromb Time International Ratio 1.2 (0.8-1.1) Activated Partial Thromboplast Time 35SEC (24-38) Sodium Level 132mmol/L (136-145) Potassium Level 5.7mmol/L (3.5-5.1) Chloride Level 98mmol/L (98-107) Carbon Dioxide Level 26mmol/L (21-32) Anion Gap 8 (6-14) Blood Urea Nitrogen 31mg/dL (8-26) Creatinine 1.2mg/dL (0.7-1.3) Estimated GFR (Cockcroft-Gault) 71.8 BUN/Creatinine Ratio 26 (6-20) Glucose Level 375mg/dL (70-99) Calcium Level 8.8mg/dL (8.5-10.1) Total Bilirubin 0.2mg/dL (0.2-1.0) Aspartate Amino Transf (AST/SGOT) 10U/L (15-37) Alanine Aminotransferase (ALT/SGPT) 12U/L (16-63) Alkaline Phosphatase 76U/L (46-116) Total Protein 7.1g/dL (6.4-8.2) Albumin 1.9g/dL (3.4-5.0) Albumin/Globulin Ratio 0.4 (1.0-1.7) O2 Saturation 97% (92-99) Arterial Blood pH 7.39 (7.35-7.45) Arterial Blood pCO2 at Patient Temp 43mmHg (35-46) Arterial Blood pO2 at Patient Temp 101mmHg (65-108) Arterial Blood HCO3 25mmol/L (21-28) Arterial Blood Base Excess 0mmol/L (-3-3) FiO2 30 Test 07/13/16 08:54 07/13/16 11:05 07/13/16 14:13 07/13/16 16:48 Glucose (Fingerstick) 355mg/dL (70-99) 351mg/dL (70-99) 333mg/dL (70-99) 273mg/dL (70-99) Test 07/13/16 20:47 07/14/16 05:20 07/14/16 08:00 07/14/16 08:32 Glucose (Fingerstick) 189mg/dL (70-99) 271mg/dL (70-99) Sodium Level 136mmol/L (136-145) Potassium Level 6.1mmol/L (3.5-5.1) Chloride Level 103mmol/L (98-107) Carbon Dioxide Level 26mmol/L (21-32) Anion Gap 7 (6-14) Blood Urea Nitrogen 43mg/dL (8-26) Creatinine 1.5mg/dL (0.7-1.3) Estimated GFR (Cockcroft-Gault) 55.5 Glucose Level 282mg/dL (70-99) Calcium Level 8.8mg/dL (8.5-10.1) O2 Saturation 95% (92-99) Arterial Blood pH 7.29 (7.35-7.45) Arterial Blood pCO2 at Patient Temp 52mmHg (35-46) Arterial Blood pO2 at Patient Temp 87mmHg (65-108) Arterial Blood HCO3 24mmol/L (21-28) Arterial Blood Base Excess -3mmol/L (-3-3) FiO2 30 Laboratory Tests Test 07/13/16 11:05 07/13/16 14:13 07/13/16 16:48 07/13/16 20:47 Glucose (Fingerstick) 351mg/dL (70-99) 333mg/dL (70-99) 273mg/dL (70-99) 189mg/dL (70-99) Test 07/14/16 05:20 07/14/16 08:00 07/14/16 08:32 Sodium Level 136mmol/L (136-145) Potassium Level 6.1mmol/L (3.5-5.1) Chloride Level 103mmol/L (98-107) Carbon Dioxide Level 26mmol/L (21-32) Anion Gap 7 (6-14) Blood Urea Nitrogen 43mg/dL (8-26) Creatinine 1.5mg/dL (0.7-1.3) Estimated GFR (Cockcroft-Gault) 55.5 Glucose Level 282mg/dL (70-99) Calcium Level 8.8mg/dL (8.5-10.1) O2 Saturation 95% (92-99) Arterial Blood pH 7.29 (7.35-7.45) Arterial Blood pCO2 at Patient Temp 52mmHg (35-46) Arterial Blood pO2 at Patient Temp 87mmHg (65-108) Arterial Blood HCO3 24mmol/L (21-28) Arterial Blood Base Excess -3mmol/L (-3-3) FiO2 30 Glucose (Fingerstick) 271mg/dL (70-99) Medications Active Scripts Medications Dose Route/Sig Days Date Category Advair 100-50 Diskus (Fluticasone/Salmeterol) 1 Each Disk.w.dev 1 Puff IH BID 06/21/16 Reported Spiriva Respimat (Tiotropium [place]) 4 Gm Mist.inhal 2.5 Gm IH DAILY 06/21/16 Reported Symbicort 160-4.5 Mcg Inhaler (Budesonide/Formoterol Fumarate) 10.2 Gm Hfa.aer.ad 2 Puff IH BID 06/21/16 Reported Atorvastatin Calcium 20 Mg Tablet 20 Mg PO HS 06/21/16 Reported Lisinopril-Hctz 10-12.5 Mg Tab (Lisinopril/Hydrochlorothiazide) 1 Each Tablet 1 Tab PO DAILY 06/21/16 Reported Isosorbide Mononitrate Er (Isosorbide Mononitrate) 120 Mg Tab.er.24h 120 Mg PO DAILY 06/21/16 Reported Levemir Flextouch (Insulin Detemir) 100 Unit/1 Ml Insuln.pen 20 Units SQ QHS 30 11/24/15 Rx Novolog Flexpen (Insulin Aspart) 100 Unit/1 Ml Insuln.pen 10 Units SQ TIDAC 30 11/24/15 Rx Novolin N (Nph, Human Insulin Isophane) 100 Unit/1 Ml Vial 0 SQ 11/18/15 Reported Promethazine-Codeine Syrup (Promethazine Hcl/Codeine) 118 Ml Syrup 5 Ml PO Q4-6HRS 11/18/15 Reported Diltiazem 24HR Cd (Diltiazem Hcl) 240 Mg Cap.er.24h 240 Mg PO DAILY 11/18/15 Reported NITROGLYCERIN SubLingual (Nitroglycerin) 0.4 Mg Tab.subl 0.4 Mg SL PRN Q5MIN PRN 11/18/15 Reported Atorvastatin Calcium 40 Mg Tablet 40 Mg PO HS 11/18/15 Reported Impression . IMPRESSION: 1. Acute respiratory failure secondary to angioedema. 2. Lisinopril induced angioedema. 3. Chronic obstructive pulmonary disease. 4. Hypertension. 5. Coronary artery disease. Plan . less edema of tongue start tube feeding D/W RN 1. Continue current mechanical support. The patient is not ready to be weaned until his angioedema subsides. 2. Continue steroids. 3. DVT and GI prophylaxis. 4. Initiate tube feeding when possible. DOUGIE RIVAS MD Jul 14, 2016 09:34
--- NOTE | 2016-07-14 09:41 | PDOC ---
PROGRESS NOTES Chief Complaint Chief Complaint Angioedema ASSESSMENT AND PLAN: 1. angioedema 2/2 ACEI likely; intubated for airway protection. on IV steroids. Pulm managing vent 2. COPD: doubt exacerbation. intub.ed, on steroids, nebs 3. DM2: uncontrolled at admit, remains difficult to control with steroid rx. start insulin gtt 4. Hyperkalemia: ? related to vecuronium? - stopped. anticipate drop with increased insulin. monitor closely. nephrology consulted 5. Hyponatremia: resolved 6. Nutrition: start TPN 7. hypoalbuminemia: severe; supplements when enteric nutrition established 8. HTN: well controlled. 9. HLD: on statin (currently on hold w/ NPO) 10. Prophylaxis: lovenox, PPI 40 min CC time Vitals Vitals Vital Signs Date Time Temp Pulse Resp B/P Pulse Ox O2 Delivery O2 Flow Rate FiO2 07/14/16 09:01 99 Ventilator 07/14/16 08:00 98.1 80 18 120/63 98.1 Physical Exam General: Other (intub.ed, sedated) Heart: Regular rate Lungs: Clear, Other Abdomen: Normal bowel sounds, Soft Extremities: No edema Skin: No rashes Labs LABS Laboratory Tests Test 07/13/16 11:05 07/13/16 14:13 07/13/16 16:48 07/13/16 20:47 Glucose (Fingerstick) 351mg/dL (70-99) 333mg/dL (70-99) 273mg/dL (70-99) 189mg/dL (70-99) Test 07/14/16 05:20 07/14/16 08:00 07/14/16 08:32 Sodium Level 136mmol/L (136-145) Potassium Level 6.1mmol/L (3.5-5.1) Chloride Level 103mmol/L (98-107) Carbon Dioxide Level 26mmol/L (21-32) Anion Gap 7 (6-14) Blood Urea Nitrogen 43mg/dL (8-26) Creatinine 1.5mg/dL (0.7-1.3) Estimated GFR (Cockcroft-Gault) 55.5 Glucose Level 282mg/dL (70-99) Calcium Level 8.8mg/dL (8.5-10.1) O2 Saturation 95% (92-99) Arterial Blood pH 7.29 (7.35-7.45) Arterial Blood pCO2 at Patient Temp 52mmHg (35-46) Arterial Blood pO2 at Patient Temp 87mmHg (65-108) Arterial Blood HCO3 24mmol/L (21-28) Arterial Blood Base Excess -3mmol/L (-3-3) FiO2 30 Glucose (Fingerstick) 271mg/dL (70-99) Review of Systems Review of Systems intub.ed, sedated FER LEOS MD Jul 14, 2016 09:41
[2016-07-14 09:57] LABS: MAGNESIUM 2.3 mg/dL (1.8-2.4); PHOSPHORUS 6.7 mg/dL (2.6-4.7)
[2016-07-14] MEDS ORDERED: IV NORMAL SALINE 500ML BAG 500 ML IV PRN ×2 (11:15→11:26)
[2016-07-14] MEDS ORDERED: MAGNESIUM SULFATE 2GM 50 ML IV PRN (11:15)
--- NOTE | 2016-07-14 11:40 | PDOC2 ---
CONSULT Date of Consult Date of Consult DATE: 07/14/16 TIME: 11:20 Reason for Consult Reason for Consult: Indira and ^K Referring Physician Referring Physician: Dr Elizondo Identification/Chief Complaint Chief Complaint Breathing problems Problems: Source Source: Chart review History of Present Illness Reason for Visit: Unable to obtain from Pt but dictated as reviewed from Chart Past Medical History Cardiovascular: CAD, HTN, PA Pulmonary: COPD Musculoskeletal: low back pain Renal/: Benign prostatic enlarg. Endocrine: Diabetes Past Surgical History Past Surgical History: Other Family History Family History: No Significant, Hypertension Social History No ALCOHOL: none Drugs: None Current Problem List Problem List Problems Medical Problems: (1) COPD exacerbation Status: Acute (2) Hyperglycemia Status: Acute Current Medications Current Medications Current Medications Albuterol/ Ipratropium (Duoneb) 6 ml 1X ONCE NEB Last administered on 12:34; Start 07/12/16 at 12:30; Stop 07/12/16 at 12:31; Status DC Prednisone 60 mg 60 mg 1X ONCE PO Last administered on 07/12/16 12:40; Start 07/12/16 at 12:30; Stop 07/12/16 at 12:31; Status DC Sodium Chloride (Iv Sodium Chloride 0.9% 1000ml Bag) 1,000 ml @ 1,000 mls/hr 1X ONCE IV Last administered on 07/12/16 13:12; Start 07/12/16 at 13:15; Stop 07/12/16 at 14:14; Status DC Insulin Human Regular (Novolin R Vial) 10 unit 1X ONCE IV Last administered on 07/12/16 13:16; Start 07/12/16 at 13:15; Stop 07/12/16 at 13:16; Status DC Diphenhydramine HCl (Benadryl) 50 mg STK-MED ONCE .ROUTE ; Start 07/12/16 at 14: 55; Stop 07/12/16 at 14:56; Status DC Diphenhydramine HCl (Benadryl) 50 mg 1X ONCE IVP Last administered on 15:15; Start 07/12/16 at 15:15; Stop 07/12/16 at 15:16; Status DC Atorvastatin Calcium (Lipitor) 40 mg HS PO ; Start 07/12/16 at 21:00 Diltiazem HCl (Cardizem 24hr Cd) 240 mg DAILY PO ; Start 07/12/16 at 16:30; Stop 07/13/16 at 17:18; Status DC Insulin Aspart (Novolog) 10 units TIDAC SQ ; Start 07/12/16 at 16:30; Stop 07/12 at 16:30; Status DC Insulin Detemir (Levemir) 20 units QHS SQ ; Start 07/12/16 at 21:00; Stop at 21:00; Status DC Promethazine HCl/ Codeine (Phenergan With Codeine) 5 ml QID PO ; Start 07/12/16 at 17:00; Stop 07/13/16 at 17:18; Status DC Non-Formulary Medication 2 puff BID IH ; Start 07/12/16 at 21:00; Status UNV Non-Formulary Medication 2.5 gm DAILY IH ; Start 07/13/16 at 09:00; Status UNV Budesonide (Pulmicort) 0.5 mg RTBID NEB Last administered on 07/13/16 07:30; Start 07/12/16 at 20:00; Stop 07/13/16 at 11:27; Status DC Albuterol/ Ipratropium (Duoneb) 3 ml RTQID NEB Last administered on 07/14/16 07:45; Start 07/12/16 at 20:00 Methylprednisolone Sodium Succinate (Solu-Medrol 40mg Vial) 60 mg 1X ONCE IV Last administered on 07/12/16 16:06; Start 07/12/16 at 16:30; Stop 07/12/16 at 16:31; Status DC Methylprednisolone Sodium Succinate (Solu-Medrol 40mg Vial) 60 mg DAILY IV ; Start 07/13/16 at 09:00; Stop 07/13/16 at 09:00; Status DC Pantoprazole Sodium (Protonix Vial) 40 mg DAILY IVP Last administered on 08:34; Start 07/13/16 at 09:00 Diphenhydramine HCl 25 mg 25 mg PRN Q6HRS PRN IVP ANAPHYLAXIS Last administered on 07/12/16 16:06; Start 07/12/16 at 16:00 Sodium Chloride (Iv Sodium Chloride 0.9% 1000ml Bag) 1,000 ml @ 150 mls/hr Q6H40M IV Last administered on 07/14/16 01:21; Start 07/12/16 at 16:30; Stop 07/14/16 at 09:31; Status DC Albuterol/ Ipratropium (Duoneb) 3 ml QID NEB ; Start 07/12/16 at 17:00; Status UNV Albuterol Sulfate (Ventolin Neb Soln) 2.5 mg PRN Q2HR PRN NEB SHORTNESS OF BREATH; Start 07/12/16 at 16:00 Insulin Aspart (Novolog) 0-9 UNITS QID SQ Last administered on 07/14/16 08:37 ; Start 07/12/16 at 17:00; Stop 07/14/16 at 09:31; Status DC Dextrose 12.5 gm PRN Q15MIN PRN IV SEE COMMENTS; Start 07/12/16 at 16:00 Insulin Detemir (Levemir) 15 units QHS SQ ; Start 07/12/16 at 21:00; Stop at 21:00; Status DC Enoxaparin Sodium (Lovenox 40mg Syringe) 40 mg DAILY SQ Last administered on 08:36; Start 07/12/16 at 16:30 Insulin Detemir (Levemir) 20 units QHS SQ Last administered on 07/12/16 23:49 ; Start 07/12/16 at 21:00; Stop 07/13/16 at 15:18; Status DC Succinylcholine Chloride 200 mg 200 mg STK-MED ONCE .ROUTE ; Start 07/12/16 at 17:46; Stop 07/12/16 at 17:47; Status DC Propofol (Diprivan) 100 ml @ As Directed STK-MED ONCE IV ; Start 07/12/16 at 17 :46; Stop 07/12/16 at 17:47; Status DC Lidocaine HCl 100 mg STK-MED ONCE .ROUTE ; Start 07/12/16 at 18:02; Stop at 18:03; Status DC Ketamine HCl 500 mg 1X ONCE IV ; Start 07/12/16 at 18:30; Stop 07/12/16 at 18: 31; Status DC Midazolam HCl (Versed) 5 mg STK-MED ONCE .ROUTE ; Start 07/12/16 at 18:14; Stop 07/12/16 at 18:15; Status DC Midazolam HCl (Versed) 2 mg 1X ONCE IV ; Start 07/12/16 at 18:30; Stop at 18:31; Status DC Glycopyrrolate (Robinul) 1 mg 1X ONCE IV ; Start 07/12/16 at 18:30; Stop at 18:31; Status DC Oxymetazoline HCl (Afrin) 2 spray 1X ONCE NS ; Start 07/12/16 at 18:30; Stop at 18:31; Status DC Lidocaine HCl 30 ml STK-MED ONCE .ROUTE ; Start 07/12/16 at 18:19; Stop at 18:20; Status DC Vecuronium Luck 6 mg 6 mg PRN Q4HRS PRN IV ANXIETY / AGITATION Last administered on 07/12/16 19:55; Start 07/12/16 at 19:00 Propofol (Diprivan) 100 ml @ 0 mls/hr CONT PRN IV SEE I/O RECORD Last administered on 07/14/16 08:40; Start 07/12/16 at 19:00 Insulin Aspart 10 units 10 units 1X ONCE SQ Last administered on 07/12/16 19: 41; Start 07/12/16 at 19:45; Stop 07/12/16 at 19:46; Status DC Vecuronium Luck 100 mg/ Dextrose 100 ml @ 0 mls/hr CONT PRN IV SEE I/O RECORD Last administered on 07/13/16 20:48; Start 07/12/16 at 21:00; Stop 07/14 at 09:31; Status DC Fentanyl Citrate (Fentanyl 600 Mcg/30 ml SLITTER PROCESSED FILM) 30 ml @ 0 mls/hr CONT PRN IV PROTOCOL Last administered on 07/14/16 09:33; Start 07/12/16 at 22:00 Chlorhexidine Gluconate (Peridex) 15 ml BID MM Last administered on 07/14/16 08:35; Start 07/13/16 at 09:00 Methylprednisolone Sodium Succinate (Solu-Medrol 125mg Vial) 125 mg BID IV Last administered on 07/14/16 08:33; Start 07/13/16 at 09:00 Rocuronium Luck (Zemuron) 50 mg STK-MED ONCE .ROUTE ; Start 07/12/16 at 15:00 ; Stop 07/13/16 at 08:54; Status DC Glycopyrrolate (Robinul) 1 mg STK-MED ONCE .ROUTE ; Start 07/12/16 at 15:00; Stop 07/13/16 at 08:54; Status DC Lidocaine HCl 30 ml STK-MED ONCE .ROUTE ; Start 07/12/16 at 18:00; Stop at 09:05; Status DC Midazolam HCl (Versed) 5 mg STK-MED ONCE .ROUTE ; Start 07/12/16 at 18:00; Stop 07/13/16 at 09:05; Status DC Propofol (Diprivan) 1,000 mg STK-MED ONCE IV ; Start 07/12/16 at 18:00; Stop at 09:05; Status DC Succinylcholine Chloride (Anectine) 200 mg STK-MED ONCE .ROUTE ; Start 07/12/16 at 18:00; Stop 07/13/16 at 09:05; Status DC Multi-Ingred Cream/Lotion/Oil/ Oint (Artificial Tears Eye Oint) 1 margie PRN Q1HR PRN OU DRY EYE Last administered on 07/13/16t 15:45; Start 07/13/16 at 11:00 Ketamine HCl 500 mg STK-MED ONCE .ROUTE ; Start 07/12/16 at 18:30; Stop at 12:05; Status DC Insulin Aspart (Novolog) 10 units 1X STAT SQ Last administered on 07/13/16 12 :36; Start 07/13/16 at 12:17; Stop 07/13/16 at 12:20; Status DC Insulin Aspart (Novolog) 10 units 1X ONCE SQ Last administered on 07/13/16 14 :31; Start 07/13/16 at 14:30; Stop 07/13/16 at 14:31; Status DC Insulin Detemir (Levemir) 40 units QHS SQ Last administered on 07/13/16 20:50 ; Start 07/13/16 at 21:00; Stop 07/14/16 at 09:31; Status DC Benzocaine (Hurricaine One) 1 spray STK-MED ONCE .ROUTE ; Start 07/12/16 at 12: 00; Stop 07/13/16 at 16:00; Status DC Lidocaine HCl 5 margie 5 margie STK-MED ONCE TP ; Start 07/12/16 at 12:00; Stop at 16:00; Status DC Insulin Human Regular/Sodium Chloride (Novolin R Vial/ Iv Normal Saline 150ml) 151.5 ml @ 0 mls/hr CONT PRN IV SEE I/O RECORD Last administered on 07/14/16t 10:01; Start 07/14/16 at 09:30 Info 1 each PRN DAILY PRN MC SEE COMMENTS; Start 07/14/16 at 09:30 Active Scripts Active Levemir Flextouch (Insulin Detemir) 100 Unit/1 Ml Insuln.pen 20 Units SQ QHS 30 Days Novolog Flexpen (Insulin Aspart) 100 Unit/1 Ml Insuln.pen 10 Units SQ TIDAC 30 Days Reported Advair 100-50 Diskus (Fluticasone/Salmeterol) 1 Each Disk.w.dev 1 Puff IH BID Spiriva Respimat (Tiotropium Luck) 4 Gm Mist.inhal 2.5 Gm IH DAILY Symbicort 160-4.5 Mcg Inhaler (Budesonide/Formoterol Fumarate) 10.2 Gm Hfa.aer.ad 2 Puff IH BID Atorvastatin Calcium 20 Mg Tablet 20 Mg PO HS Lisinopril-Hctz 10-12.5 Mg Tab (Lisinopril/Hydrochlorothiazide) 1 Each Tablet 1 Tab PO DAILY Isosorbide Mononitrate Er (Isosorbide Mononitrate) 120 Mg Tab.er.24h 120 Mg PO DAILY Novolin N (Nph, Human Insulin Isophane) 100 Unit/1 Ml Vial 0 SQ Promethazine-Codeine Syrup (Promethazine Hcl/Codeine) 118 Ml Syrup 5 Ml PO Q4- 6HRS Diltiazem 24HR Cd (Diltiazem Hcl) 240 Mg Cap.er.24h 240 Mg PO DAILY NITROGLYCERIN SubLingual (Nitroglycerin) 0.4 Mg Tab.subl 0.4 Mg SL PRN Q5MIN PRN Atorvastatin Calcium 40 Mg Tablet 40 Mg PO HS Allergies Allergies: Coded Allergies: lisinopril (Verified Allergy, Severe, Anaphylaxis, 07/13/16) Emergent Intubation 07/12/16. I S O L A T I O N *CONTACT* (Verified Allergy, Unknown, 07/14/16) mrsa ROS Review of System Unable to obtain from Pt due to sedated intubated state Physical Exam Physical Exam General Appearance: SEdated and intubated In no Distress Eyes: Sclera Anicteric Conjunctiva Normal vs min erythema EN: No EN Drainage Mucous Memb. Dry now; significant halitosis Neck: no JVD no JVP Supple no Thyromegaly CVS: S1 S2 no Murmur No Gallop No Rub no Edema Resp: no Rales no Rhonchi no Acc. Muscle use GI: BS +ve NO Bruit Non Tender Non Distended : no CVA tenderness; no Suprapubic Tenderness SKIN: no visible Rashes Breast Exam deferred Mu.Sk: Adequate passive ROM no Muscle Atrophy Heme: Unable to palpate Obvious LAD no palp Splenomegaly NEURO: Unabel to assess while sedated and intubated Psych: Unabel to assess while sedated and intubated Vital Signs Vital Signs Date Time Temp Pulse Resp B/P Pulse Ox O2 Delivery O2 Flow Rate FiO2 07/14/16 10:03 18 98 Ventilator 07/14/16 08:00 98.1 80 120/63 98.1 Assessment & Plan ARF: Appears to be Intravascularly Dry, Check CVP and IVF Boluses + Gtt. Rodrick as ordered. Current FLuid and E-lyte status does not necessitate emergent need for Dialysis. Will re-evaluate for Dialysis in am Dehydration - IVF ^K - ? Due to resp Acidosis and ^ CO2. repeat at Noon after ^ RR on vent. Check CK and Uric Acid. Reval after FSBS are better controlled ^Phos: Reval after FSBS are better controlled UTI - Await Cx - Rocephin Protein Gap - Eval for Paraprotein Proteinuria on UA - ? Underlying DM/ HTN sive / NS HTN: Current BP meds reviewed. See orders for changes. Discussed Plan of Care and prognosis etc. at length with family Labs Labs Laboratory Tests Test 07/12/16 12:10 07/12/16 19:33 07/12/16 19:50 07/12/16 20:15 White Blood Count 6.9x10^3/uL (4.0-11.0) Red Blood Count 3.82x10^6/uL (4.30-5.70) Hemoglobin 10.6g/dL (13.0-17.5) Hematocrit 32.5% (39.0-53.0) Mean Corpuscular Volume 85fL (79-100) Mean Corpuscular Hemoglobin 28pg (25-35) Mean Corpuscular Hemoglobin Concent 33g/dL (31-37) Red Cell Distribution Width 13.8% (11.5-14.5) Platelet Count 502x10^3/uL (140-400) Neutrophils (%) (Auto) 74% (31-73) Lymphocytes (%) (Auto) 15% (24-48) Monocytes (%) (Auto) 10% (0-9) Eosinophils (%) (Auto) 1% (0-3) Basophils (%) (Auto) 0% (0-3) Neutrophils # (Auto) 5.1x10^3uL (1.8-7.7) Lymphocytes # (Auto) 1.0x10^3/uL (1.0-4.8) Monocytes # (Auto) 0.7x10^3/uL (0.0-1.1) Eosinophils # (Auto) 0.1x10^3/uL (0.0-0.7) Basophils # (Auto) 0.0x10^3/uL (0.0-0.2) Sodium Level 132mmol/L (136-145) Potassium Level 4.5mmol/L (3.5-5.1) Chloride Level 94mmol/L (98-107) Carbon Dioxide Level 33mmol/L (21-32) Anion Gap 5 (6-14) Blood Urea Nitrogen 27mg/dL (8-26) Creatinine 1.3mg/dL (0.7-1.3) Estimated GFR (Cockcroft-Gault) 65.5 Glucose Level 522mg/dL (70-99) Calcium Level 9.4mg/dL (8.5-10.1) Troponin I Quantitative < 0.017ng/mL (0.000-0.055) Glucose (Fingerstick) 353mg/dL (70-99) Nasal Screen MRSA (PCR) Positive (Negative) O2 Saturation 95% (92-99) Arterial Blood pH 7.32 (7.35-7.45) Arterial Blood pCO2 at Patient Temp 53mmHg (35-46) Arterial Blood pO2 at Patient Temp 82mmHg (65-108) Arterial Blood HCO3 27mmol/L (21-28) Arterial Blood Base Excess 0mmol/L (-3-3) FiO2 30 Test 07/12/16 23:47 07/13/16 03:15 07/13/16 05:00 07/13/16 08:00 Glucose (Fingerstick) 363mg/dL (70-99) Urine Collection Type U cath Urine Color Rimma Urine Clarity Turbid Urine pH 5.0 Urine Specific [place] 1.020 Urine Protein 30mg/dL (NEG-TRACE) Urine Glucose (UA) 500mg/dL (NEG) Urine Ketones (Stick) Negativemg/dL (NEG) Urine Blood Moderate (NEG) Urine Nitrite Positive (NEG) Urine Bilirubin Negative (NEG) Urine Urobilinogen Dipstick 1.0mg/dL (0.2 mg/dL) Urine Leukocyte Esterase Large (NEG) Urine RBC >40/HPF (0-2) Urine WBC Tntc/HPF (0-4) Urine Bacteria Many/HPF (0-FEW) White Blood Count 5.9x10^3/uL (4.0-11.0) Red Blood Count 3.42x10^6/uL (4.30-5.70) Hemoglobin 9.3g/dL (13.0-17.5) Hematocrit 29.0% (39.0-53.0) Mean Corpuscular Volume 85fL (79-100) Mean Corpuscular Hemoglobin 27pg (25-35) Mean Corpuscular Hemoglobin Concent 32g/dL (31-37) Red Cell Distribution Width 13.4% (11.5-14.5) Platelet Count 462x10^3/uL (140-400) Neutrophils (%) (Auto) 82% (31-73) Lymphocytes (%) (Auto) 13% (24-48) Monocytes (%) (Auto) 4% (0-9) Eosinophils (%) (Auto) 0% (0-3) Basophils (%) (Auto) 1% (0-3) Neutrophils # (Auto) 4.8x10^3uL (1.8-7.7) Lymphocytes # (Auto) 0.7x10^3/uL (1.0-4.8) Monocytes # (Auto) 0.3x10^3/uL (0.0-1.1) Eosinophils # (Auto) 0.0x10^3/uL (0.0-0.7) Basophils # (Auto) 0.0x10^3/uL (0.0-0.2) Prothrombin Time 14.7SEC (11.7-14.0) Prothromb Time International Ratio 1.2 (0.8-1.1) Activated Partial Thromboplast Time 35SEC (24-38) Sodium Level 132mmol/L (136-145) Potassium Level 5.7mmol/L (3.5-5.1) Chloride Level 98mmol/L (98-107) Carbon Dioxide Level 26mmol/L (21-32) Anion Gap 8 (6-14) Blood Urea Nitrogen 31mg/dL (8-26) Creatinine 1.2mg/dL (0.7-1.3) Estimated GFR (Cockcroft-Gault) 71.8 BUN/Creatinine Ratio 26 (6-20) Glucose Level 375mg/dL (70-99) Calcium Level 8.8mg/dL (8.5-10.1) Total Bilirubin 0.2mg/dL (0.2-1.0) Aspartate Amino Transf (AST/SGOT) 10U/L (15-37) Alanine Aminotransferase (ALT/SGPT) 12U/L (16-63) Alkaline Phosphatase 76U/L (46-116) Total Protein 7.1g/dL (6.4-8.2) Albumin 1.9g/dL (3.4-5.0) Albumin/Globulin Ratio 0.4 (1.0-1.7) O2 Saturation 97% (92-99) Arterial Blood pH 7.39 (7.35-7.45) Arterial Blood pCO2 at Patient Temp 43mmHg (35-46) Arterial Blood pO2 at Patient Temp 101mmHg (65-108) Arterial Blood HCO3 25mmol/L (21-28) Arterial Blood Base Excess 0mmol/L (-3-3) FiO2 30 Test 07/13/16 08:54 07/13/16 11:05 07/13/16 14:13 07/13/16 16:48 Glucose (Fingerstick) 355mg/dL (70-99) 351mg/dL (70-99) 333mg/dL (70-99) 273mg/dL (70-99) Test 07/13/16 20:47 07/14/16 05:20 07/14/16 08:00 07/14/16 08:32 Glucose (Fingerstick) 189mg/dL (70-99) 271mg/dL (70-99) Sodium Level 136mmol/L (136-145) Potassium Level 6.1mmol/L (3.5-5.1) Chloride Level 103mmol/L (98-107) Carbon Dioxide Level 26mmol/L (21-32) Anion Gap 7 (6-14) Blood Urea Nitrogen 43mg/dL (8-26) Creatinine 1.5mg/dL (0.7-1.3) Estimated GFR (Cockcroft-Gault) 55.5 Glucose Level 282mg/dL (70-99) Calcium Level 8.8mg/dL (8.5-10.1) Phosphorus Level 6.7mg/dL (2.6-4.7) Magnesium Level 2.3mg/dL (1.8-2.4) O2 Saturation 95% (92-99) Arterial Blood pH 7.29 (7.35-7.45) Arterial Blood pCO2 at Patient Temp 52mmHg (35-46) Arterial Blood pO2 at Patient Temp 87mmHg (65-108) Arterial Blood HCO3 24mmol/L (21-28) Arterial Blood Base Excess -3mmol/L (-3-3) FiO2 30 Test 07/14/16 09:55 Glucose (Fingerstick) 256mg/dL (70-99) Laboratory Tests Test 07/13/16 14:13 07/13/16 16:48 07/13/16 20:47 07/14/16 05:20 Glucose (Fingerstick) 333mg/dL (70-99) 273mg/dL (70-99) 189mg/dL (70-99) Sodium Level 136mmol/L (136-145) Potassium Level 6.1mmol/L (3.5-5.1) Chloride Level 103mmol/L (98-107) Carbon Dioxide Level 26mmol/L (21-32) Anion Gap 7 (6-14) Blood Urea Nitrogen 43mg/dL (8-26) Creatinine 1.5mg/dL (0.7-1.3) Estimated GFR (Cockcroft-Gault) 55.5 Glucose Level 282mg/dL (70-99) Calcium Level 8.8mg/dL (8.5-10.1) Phosphorus Level 6.7mg/dL (2.6-4.7) Magnesium Level 2.3mg/dL (1.8-2.4) Test 07/14/16 08:00 07/14/16 08:32 07/14/16 09:55 O2 Saturation 95% (92-99) Arterial Blood pH 7.29 (7.35-7.45) Arterial Blood pCO2 at Patient Temp 52mmHg (35-46) Arterial Blood pO2 at Patient Temp 87mmHg (65-108) Arterial Blood HCO3 24mmol/L (21-28) Arterial Blood Base Excess -3mmol/L (-3-3) FiO2 30 Glucose (Fingerstick) 271mg/dL (70-99) 256mg/dL (70-99) Images Images IMPRESSION 1. Marked enlargement of the patient's tongue as well as oropharynx with moderate narrowing of the airway, nonspecific but certainly could be related to anaphylactic medication reaction. 2. No acute intracranial findings. Brain parenchymal volume loss. FELIBERTO GIL MD Jul 14, 2016 11:40
[2016-07-14 11:59] LABS: LACTATE DEHYDROGENASE 228 U/L (85-227)
--- NOTE | 2016-07-14 12:43 | PDOC ---
SURGICAL PROGRESS NOTE Subjective Pt sedated, appears comfortable and stable Vital Signs Vital Signs Date Time Temp Pulse Resp B/P Pulse Ox O2 Delivery O2 Flow Rate FiO2 07/14/16 12:23 99 Ventilator 07/14/16 10:03 18 07/14/16 08:00 98.1 80 120/63 98.1 I&O Intake and Output 07/14/16 07:00 Intake Total 2833.25 ml Output Total 553 ml Balance 2280.25 ml IV Total 2833.25 ml Output Urine Total 553 ml General: No acute distress HEENT: Other (orally intubated, tongue appears slightly less swollen) Labs Laboratory Tests Test 07/12/16 19:33 07/12/16 19:50 07/12/16 20:15 07/12/16 23:47 Glucose (Fingerstick) 353mg/dL (70-99) 363mg/dL (70-99) Nasal Screen MRSA (PCR) Positive (Negative) O2 Saturation 95% (92-99) Arterial Blood pH 7.32 (7.35-7.45) Arterial Blood pCO2 at Patient Temp 53mmHg (35-46) Arterial Blood pO2 at Patient Temp 82mmHg (65-108) Arterial Blood HCO3 27mmol/L (21-28) Arterial Blood Base Excess 0mmol/L (-3-3) FiO2 30 Test 07/13/16 03:15 07/13/16 05:00 07/13/16 08:00 07/13/16 08:54 Urine Collection Type U cath Urine Color [place] Urine Clarity Turbid Urine pH 5.0 Urine Specific [place] 1.020 Urine Protein 30mg/dL (NEG-TRACE) Urine Glucose (UA) 500mg/dL (NEG) Urine Ketones (Stick) Negativemg/dL (NEG) Urine Blood Moderate (NEG) Urine Nitrite Positive (NEG) Urine Bilirubin Negative (NEG) Urine Urobilinogen Dipstick 1.0mg/dL (0.2 mg/dL) Urine Leukocyte Esterase Large (NEG) Urine RBC >40/HPF (0-2) Urine WBC Tntc/HPF (0-4) Urine Bacteria Many/HPF (0-FEW) White Blood Count 5.9x10^3/uL (4.0-11.0) Red Blood Count 3.42x10^6/uL (4.30-5.70) Hemoglobin 9.3g/dL (13.0-17.5) Hematocrit 29.0% (39.0-53.0) Mean Corpuscular Volume 85fL (79-100) Mean Corpuscular Hemoglobin 27pg (25-35) Mean Corpuscular Hemoglobin Concent 32g/dL (31-37) Red Cell Distribution Width 13.4% (11.5-14.5) Platelet Count 462x10^3/uL (140-400) Neutrophils (%) (Auto) 82% (31-73) Lymphocytes (%) (Auto) 13% (24-48) Monocytes (%) (Auto) 4% (0-9) Eosinophils (%) (Auto) 0% (0-3) Basophils (%) (Auto) 1% (0-3) Neutrophils # (Auto) 4.8x10^3uL (1.8-7.7) Lymphocytes # (Auto) 0.7x10^3/uL (1.0-4.8) Monocytes # (Auto) 0.3x10^3/uL (0.0-1.1) Eosinophils # (Auto) 0.0x10^3/uL (0.0-0.7) Basophils # (Auto) 0.0x10^3/uL (0.0-0.2) Prothrombin Time 14.7SEC (11.7-14.0) Prothromb Time International Ratio 1.2 (0.8-1.1) Activated Partial Thromboplast Time 35SEC (24-38) Sodium Level 132mmol/L (136-145) Potassium Level 5.7mmol/L (3.5-5.1) Chloride Level 98mmol/L (98-107) Carbon Dioxide Level 26mmol/L (21-32) Anion Gap 8 (6-14) Blood Urea Nitrogen 31mg/dL (8-26) Creatinine 1.2mg/dL (0.7-1.3) Estimated GFR (Cockcroft-Gault) 71.8 BUN/Creatinine Ratio 26 (6-20) Glucose Level 375mg/dL (70-99) Calcium Level 8.8mg/dL (8.5-10.1) Total Bilirubin 0.2mg/dL (0.2-1.0) Aspartate Amino Transf (AST/SGOT) 10U/L (15-37) Alanine Aminotransferase (ALT/SGPT) 12U/L (16-63) Alkaline Phosphatase 76U/L (46-116) Total Protein 7.1g/dL (6.4-8.2) Albumin 1.9g/dL (3.4-5.0) Albumin/Globulin Ratio 0.4 (1.0-1.7) O2 Saturation 97% (92-99) Arterial Blood pH 7.39 (7.35-7.45) Arterial Blood pCO2 at Patient Temp 43mmHg (35-46) Arterial Blood pO2 at Patient Temp 101mmHg (65-108) Arterial Blood HCO3 25mmol/L (21-28) Arterial Blood Base Excess 0mmol/L (-3-3) FiO2 30 Glucose (Fingerstick) 355mg/dL (70-99) Test 07/13/16 11:05 07/13/16 14:13 07/13/16 16:48 07/13/16 20:47 Glucose (Fingerstick) 351mg/dL (70-99) 333mg/dL (70-99) 273mg/dL (70-99) 189mg/dL (70-99) Test 07/14/16 05:20 07/14/16 08:00 07/14/16 08:32 07/14/16 09:55 Sodium Level 136mmol/L (136-145) Potassium Level 6.1mmol/L (3.5-5.1) Chloride Level 103mmol/L (98-107) Carbon Dioxide Level 26mmol/L (21-32) Anion Gap 7 (6-14) Blood Urea Nitrogen 43mg/dL (8-26) Creatinine 1.5mg/dL (0.7-1.3) Estimated GFR (Cockcroft-Gault) 55.5 Glucose Level 282mg/dL (70-99) Calcium Level 8.8mg/dL (8.5-10.1) Phosphorus Level 6.7mg/dL (2.6-4.7) Magnesium Level 2.3mg/dL (1.8-2.4) Lactate Dehydrogenase 228U/L (85-227) Lipase 74U/L (73-393) Thyroid Stimulating Hormone (TSH) 0.161uIU/mL (0.358-3.74) O2 Saturation 95% (92-99) Arterial Blood pH 7.29 (7.35-7.45) Arterial Blood pCO2 at Patient Temp 52mmHg (35-46) Arterial Blood pO2 at Patient Temp 87mmHg (65-108) Arterial Blood HCO3 24mmol/L (21-28) Arterial Blood Base Excess -3mmol/L (-3-3) FiO2 30 Glucose (Fingerstick) 271mg/dL (70-99) 256mg/dL (70-99) Test 07/14/16 11:12 Glucose (Fingerstick) 232mg/dL (70-99) Laboratory Tests Test 07/13/16 14:13 07/13/16 16:48 07/13/16 20:47 07/14/16 05:20 Glucose (Fingerstick) 333mg/dL (70-99) 273mg/dL (70-99) 189mg/dL (70-99) Sodium Level 136mmol/L (136-145) Potassium Level 6.1mmol/L (3.5-5.1) Chloride Level 103mmol/L (98-107) Carbon Dioxide Level 26mmol/L (21-32) Anion Gap 7 (6-14) Blood Urea Nitrogen 43mg/dL (8-26) Creatinine 1.5mg/dL (0.7-1.3) Estimated GFR (Cockcroft-Gault) 55.5 Glucose Level 282mg/dL (70-99) Calcium Level 8.8mg/dL (8.5-10.1) Phosphorus Level 6.7mg/dL (2.6-4.7) Magnesium Level 2.3mg/dL (1.8-2.4) Lactate Dehydrogenase 228U/L (85-227) Lipase 74U/L (73-393) Thyroid Stimulating Hormone (TSH) 0.161uIU/mL (0.358-3.74) Test 07/14/16 08:00 07/14/16 08:32 07/14/16 09:55 07/14/16 11:12 O2 Saturation 95% (92-99) Arterial Blood pH 7.29 (7.35-7.45) Arterial Blood pCO2 at Patient Temp 52mmHg (35-46) Arterial Blood pO2 at Patient Temp 87mmHg (65-108) Arterial Blood HCO3 24mmol/L (21-28) Arterial Blood Base Excess -3mmol/L (-3-3) FiO2 30 Glucose (Fingerstick) 271mg/dL (70-99) 256mg/dL (70-99) 232mg/dL (70-99) Problem List Problems Medical Problems: (1) COPD exacerbation Status: Acute (2) Hyperglycemia Status: Acute Assessment/Plan angioedema cont supportive care available for possible trach, but should be able to avoid Problems: LAMAR LUA MD Jul 14, 2016 12:43
--- NOTE | 2016-07-14 13:34 | RAD ---
Bilateral renal ultrasound without comparison for acute renal failure, chronic kidney disease. Technique: Real-time grayscale and color Doppler evaluation of the kidneys and urinary tract is performed. The right kidney measures 12.0 x 5.1 x 5.4 cm and the left measures 9.9 x 5.8 x 4.6 cm. No hydronephrosis or perinephric fluid involving either kidney. No focal parenchymal abnormalities. Urinary bladder is partially fluid distended, and a Champion catheter is present. Ureteral jets are not identified. There is normal color Doppler flow to the right kidney. Color Doppler flow to the left kidney and resistive indices were not obtained. Impression: 1. No sonographically evident renal abnormality.
[2016-07-14] MEDS: TPN PER PHARMACY MC PRN (13:36)
[2016-07-14] MEDS: CEFTRIAXONE SODIUM 1 GM in IV NORMAL SALINE 50ML 50 ML IV SCH (13:41)
[2016-07-14 13:42] LABS: URIC ACID 3.9 mg/dL (3.5-7.2)
--- NOTE | 2016-07-14 14:22 | RAD ---
TYE, 07/14/2016: History: Check Dobbhoff tube placement A supine view of the upper abdomen was obtained. A Dobbhoff tube has been inserted extending into the fundal region of the stomach. There is a moderate amount of gas and stool in the colon extending down to the level of the rectum. No organomegaly is seen. Scattered vascular calcifications are evident. There is unchanged pleural thickening in the right lower chest. IMPRESSION: The Dobbhoff tube extends into the fundus of the stomach.
[2016-07-14 14:49] LABS: BILIRUBIN,URINE NEGATIVE (NEG); GLUCOSE,URINE NEGATIVE (NEG); NITRITE,URINE NEGATIVE (NEG); PROTEIN,URINE NEGATIVE (NEG-TRACE); UROBILINOGEN,URINE 0.2 mg/dL (0.2 mg/dL)
[2016-07-14 15:03] LABS: BACTERIA,URINE FEW /HPF (0-FEW); RBC,URINE OCC /HPF (0-2); YEAST,URINE PRESENT /HPF
--- NOTE | 2016-07-14 15:20 | CARD ---
APPROVED REPORT EXAM: Two-dimensional and M-mode echocardiogram with Doppler and color Doppler. Other Information Quality : FairHR: 98bpm Rhythm : NSR INDICATION Guide IVF, Angioedema 2D DIMENSIONS RVDd2.4 (2.9-3.5cm)Left Atrium(2D)2.6 (1.6-4.0cm) IVSd1.0 (0.7-1.1cm)Aortic Root(2D)2.9 (2.0-3.7cm) LVDd5.0 (3.9-5.9cm)LVOT Diameter2.4 (1.8-2.4cm) PWd1.0 (0.7-1.1cm)LVDs2.9 (2.5-4.0cm) FS (%) 41.1 %SV84.7 ml LVEF(%)71.7 (>50%) Aortic Valve AoV Peak Tejas.180.1cm/sAoV VTI28.7cm AO Peak GR.13.0mmHgLVOT Peak Tejas.113.8cm/s AO Mean GR.6mmHgAVA (VMAX)2.75cm2 Mitral Valve MV E Bysbwdls69.0cm/sMV DECEL DSAQ02xt MV A Akkiprzl865.2cm/sE/A Ratio0.4 Pulmonary Valve PV Peak Ailzfriq773.2cm/s Tricuspid Valve TR P. Ctowfscw317mp/sTR Peak Gr.65mmHg LEFT VENTRICLE The left ventricle is normal size. There is normal left ventricular wall thickness. The left ventricu lar systolic function is normal. The Ejection Fraction is 70%. There is normal LV segmental wall rhona on. Transmitral Doppler flow pattern appears to be Grade I-abnormal relaxation pattern. RIGHT VENTRICLE The right ventricle is normal size. There is normal right ventricular wall thickness. The right ventr icular systolic function is normal. ATRIA The left atrium size is normal. The right atrium size is normal. The interatrial septum is intact wit h no evidence for an atrial septal defect or patent foramen ovale as noted on 2-D or Doppler imaging. AORTIC VALVE The aortic valve is not well visualized. Doppler and Color Flow revealed no significant aortic regurg itation. There is no significant aortic valvular stenosis. MITRAL VALVE The mitral valve is not well visualized. There is no mitral valve stenosis. Doppler and Color Flow re vealed no mitral valve regurgitation noted. TRICUSPID VALVE Doppler and Color Flow revealed moderate tricuspid regurgitation. The pulmonary artery systolic press ure is estimated at 70 mmHg. There is severe pulmonary hypertension. PULMONIC VALVE The pulmonic valve is not well visualized. Doppler and Color Flow revealed no pulmonic valvular regur gitation. There is no pulmonic valvular stenosis. GREAT VESSELS The aortic root is normal in size. The ascending aorta is not well seen. The pulmonary is not well vi sualized. Pulmonary Vein is not well visualized. The IVC is normal in size and collapses >50% with in spiration. PERICARDIAL EFFUSION There is no evidence of significant pericardial effusion. Critical Notification Critical Value: No <Conclusion> The left ventricular systolic function is normal. The Ejection Fraction is 70%. There is normal LV segmental wall motion. Transmitral Doppler flow pattern appears to be Grade I-abnormal relaxation pattern. Moderate tricuspid regurgitation. The pulmonary artery systolic pressure is estimated at 70 mmHg. There is severe pulmonary hypertension. There is no evidence of significant pericardial effusion.
[2016-07-14 16:32] LABS: HCO3 ABG 24 mmol/L (21-28); PCO2 ABG 49 mmHg (35-46); PH ABG 7.31 (7.35-7.45); PO2 ABG 67 mmHg (65-108); SAT O2 ABG 92 % (92-99)
[2016-07-14] MEDS: ATORVASTATIN CALCIUM 40 MG TABLET. PO SCH (21:00)
[2016-07-14] MEDS ORDERED: AMINO ACIDS IV SCH ×7 (22:00)
[2016-07-14] MEDS ORDERED: DEXTROSE 70% IV SCH ×7 (22:00)
[2016-07-14] MEDS ORDERED: [UNRECOGNIZED DRUG - OTHER] IV SCH ×7 (22:00)
[2016-07-14] MEDS ORDERED: TOTAL PARENTERAL NUTRITION IV SCH ×7 (22:00)
[2016-07-15] VITALS (26 sets, daily range): BP systolic 89–178; BP diastolic 45–96
--- NOTE | 2016-07-15 00:52 | CONS ---
DATE OF CONSULTATION: PRIMARY PHYSICIAN: Dr. Tan/Dr. Damian. REASON FOR CONSULTATION: Acute renal failure and hyperkalemia. HISTORY OF PRESENT ILLNESS: The patient is a 75-year-old -[place] gentleman who presented to the ER on . He apparently presented with chief complaint of "face problem" and had complained of facial swelling as well as some nausea, vomiting. The patient is currently sedated and intubated. No history is available from him; however, this has been reviewed from electronic records as available. He had initially complained of facial swelling which had gone down by the time he was seen in the ER; however, he had noticed cough, runny nose and cold symptoms. He was eventually found to have angioedema and also underwent a CT scan of his head and facial bones which are reviewed below. His airway was noted to be significantly narrowed and he was intubated with surgery on standby for potential tracheostomy. At presentation, his BUN was 27, creatinine of 1.3, potassium of 4.5 with glucose of 522. However, today, his potassium is 6.1 with a BUN 43, creatinine 1.5, glucose is down to 282, phosphorus is up at 6.7, magnesium is normal. Urine output is marginal. He is reported to have been on IV fluids. UA was also reviewed. In this setting, we were asked to see him for further evaluation and ABG done at 8:00 a.m. today shows pH of 7.29, pCO2 of 52 and a pO2 of 87 on FIO2 of 30%. His respiratory rate has been increased and another potassium will be checked later today. For rest of the details, see electronic renal consult note. FELIBERTO GIL MD DR: VIMAL/taylor JOB#: [id number] / [id number]
[2016-07-15] MEDS: ALBUTEROL SULFATE 2.5 MG/3 ML NEBU. NEB PRN (04:15)
[2016-07-15 06:09] LABS: BASO # 0.1 x10^3/uL (0.0-0.2); BASO % 1 % (0-3); EOS % 0 % (0-3); HEMATOCRIT 29.7 % (39.0-53.0); HEMOGLOBIN 9.6 g/dL (13.0-17.5); LYMPH # 0.6 x10^3/uL (1.0-4.8); LYMPH % 5 % (24-48); MEAN CORPUSCULAR HEMOGLOBIN 28 pg (25-35); MEAN CORPUSCULAR HGB CONC 32 g/dL (31-37); MEAN CORPUSCULAR VOLUME 86 fL (79-100); MONO % 8 % (0-9); NEUT % 86 % (31-73); PLATELET COUNT 428 x10^3/uL (140-400); RED BLOOD COUNT 3.46 x10^6/uL (4.30-5.70); RED CELL DISTRIBUTION WIDTH 14.3 % (11.5-14.5); WHITE BLOOD COUNT 10.9 x10^3/uL (4.0-11.0)
[2016-07-15 06:29] LABS: ALBUMIN 2.1 g/dL (3.4-5.0); ALBUMIN/GLOBULIN RATIO 0.4 (1.0-1.7); CALCIUM 9.2 mg/dL (8.5-10.1); CREATININE 1.1 mg/dL (0.7-1.3); GFR 79.4; PHOSPHORUS 4.2 mg/dL (2.6-4.7); POTASSIUM 5.2 mmol/L (3.5-5.1); TOTAL BILIRUBIN 0.2 mg/dL (0.2-1.0); TOTAL PROTEIN 7.2 g/dL (6.4-8.2)
[2016-07-15 08:00] LABS: PLT ESTIMATE INCREASED (ADEQUATE)
[2016-07-15] MEDS ORDERED: DEXTROSE 50% 25 GM / 50ML DISP.SYRIN. IV PRN (08:00)
[2016-07-15] MEDS ORDERED: SODIUM POLYSTYRENE SULFONATE 15 GM/60 ML ORAL.SUSP. PO ONE (08:00)
[2016-07-15] MEDS: INSULIN ASPART 300 UNITS/3 ML INSULN.PEN SQ SCH ×4 (08:00→16:30)
--- NOTE | 2016-07-15 08:04 | PDOC ---
PROGRESS NOTES Chief Complaint Chief Complaint Angioedema ASSESSMENT AND PLAN: 1. angioedema 2/2 ACEI likely; self extubated 07/14/16 2. COPD hx, acute bronchitis 3. DM2: insulin requiring 4. Hyperkalemia: 5. Hyponatremia: resolved 7. hypoalbuminemia: 8. HTN: well controlled. 9. HLD: on statin History of Present Illness History of Present Illness Tongue NOT swollen anymore COugh, productive NO fevers CXR: I have personally reviewed, official read The heart size and pulmonary vascularity are normal. There is tortuosity and calcific plaquing of the thoracic aorta. There are scattered parenchymal scars. There is is unchanged blunting of the right lateral costophrenic angle with mild underlying parenchymal opacities. The pleural thickening has been present on multiple previous studies and appears to be due to scarring. No new pulmonary abnormality is seen. There is no evidence of left-sided pleural fluid. 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 Vitals Vitals Vital Signs Date Time Temp Pulse Resp B/P Pulse Ox O2 Delivery O2 Flow Rate FiO2 07/15/16 07:00 68 20 146/79 96 Nasal Cannula 3.0 07/15/16 04:00 98.6 98.6 Physical Exam General: No acute distress Heart: Regular rate Lungs: Clear Abdomen: Normal bowel sounds, Soft Extremities: No edema Skin: No rashes Labs LABS Laboratory Tests Test 07/14/16 08:00 07/14/16 08:32 07/14/16 09:55 07/14/16 11:12 O2 Saturation 95% (92-99) Arterial Blood pH 7.29 (7.35-7.45) Arterial Blood pCO2 at Patient Temp 52mmHg (35-46) Arterial Blood pO2 at Patient Temp 87mmHg (65-108) Arterial Blood HCO3 24mmol/L (21-28) Arterial Blood Base Excess -3mmol/L (-3-3) FiO2 30 Glucose (Fingerstick) 271mg/dL (70-99) 256mg/dL (70-99) 232mg/dL (70-99) Test 07/14/16 12:40 07/14/16 13:00 07/14/16 13:02 07/14/16 14:06 Potassium Level 5.4mmol/L (3.5-5.1) Uric Acid 3.9mg/dL (3.5-7.2) Creatine Kinase 67U/L (39-308) Urine Collection Type Unknown Urine Color Yellow Urine Clarity Cloudy Urine pH 5.0 Urine Specific [place] 1.020 Urine Protein Negativemg/dL (NEG-TRACE) Urine Glucose (UA) Negativemg/dL (NEG) Urine Ketones (Stick) Negativemg/dL (NEG) Urine Blood Negative (NEG) Urine Nitrite Negative (NEG) Urine Bilirubin Negative (NEG) Urine Urobilinogen Dipstick 0.2mg/dL (0.2 mg/dL) Urine Leukocyte Esterase Small (NEG) Urine RBC Occ/HPF (0-2) Urine WBC 5-10/HPF (0-4) Urine Bacteria Few/HPF (0-FEW) Urine Hyaline Casts Few/HPF Urine Mucus Mod/LPF Urine Yeast Present/HPF Urine Random Sodium <20mmol/L (Not Estab.) Glucose (Fingerstick) 166mg/dL (70-99) 124mg/dL (70-99) Test 07/14/16 15:14 07/14/16 16:05 07/14/16 16:19 07/14/16 17:39 Glucose (Fingerstick) 89mg/dL (70-99) 84mg/dL (70-99) 82mg/dL (70-99) O2 Saturation 92% (92-99) Arterial Blood pH 7.31 (7.35-7.45) Arterial Blood pCO2 at Patient Temp 49mmHg (35-46) Arterial Blood pO2 at Patient Temp 67mmHg (65-108) Arterial Blood HCO3 24mmol/L (21-28) Arterial Blood Base Excess -2mmol/L (-3-3) FiO2 3 lpm nc Test 07/14/16 18:47 07/14/16 19:59 07/14/16 21:03 07/14/16 22:18 Glucose (Fingerstick) 90mg/dL (70-99) 82mg/dL (70-99) 93mg/dL (70-99) 87mg/dL (70-99) Test 07/14/16 23:28 07/15/16 00:32 07/15/16 01:33 07/15/16 02:30 Glucose (Fingerstick) 137mg/dL (70-99) 168mg/dL (70-99) 189mg/dL (70-99) 176mg/dL (70-99) Test 07/15/16 03:32 07/15/16 04:36 07/15/16 05:40 07/15/16 05:45 Glucose (Fingerstick) 146mg/dL (70-99) 120mg/dL (70-99) 134mg/dL (70-99) White Blood Count 10.9x10^3/uL (4.0-11.0) Red Blood Count 3.46x10^6/uL (4.30-5.70) Hemoglobin 9.6g/dL (13.0-17.5) Hematocrit 29.7% (39.0-53.0) Mean Corpuscular Volume 86fL (79-100) Mean Corpuscular Hemoglobin 28pg (25-35) Mean Corpuscular Hemoglobin Concent 32g/dL (31-37) Red Cell Distribution Width 14.3% (11.5-14.5) Platelet Count 428x10^3/uL (140-400) Neutrophils (%) (Auto) 86% (31-73) Lymphocytes (%) (Auto) 5% (24-48) Monocytes (%) (Auto) 8% (0-9) Eosinophils (%) (Auto) 0% (0-3) Basophils (%) (Auto) 1% (0-3) Neutrophils # (Auto) 9.4x10^3uL (1.8-7.7) Lymphocytes # (Auto) 0.6x10^3/uL (1.0-4.8) Monocytes # (Auto) 0.9x10^3/uL (0.0-1.1) Eosinophils # (Auto) 0.0x10^3/uL (0.0-0.7) Basophils # (Auto) 0.1x10^3/uL (0.0-0.2) Sodium Level 141mmol/L (136-145) Potassium Level 5.2mmol/L (3.5-5.1) Chloride Level 106mmol/L (98-107) Carbon Dioxide Level 25mmol/L (21-32) Anion Gap 10 (6-14) Blood Urea Nitrogen 40mg/dL (8-26) Creatinine 1.1mg/dL (0.7-1.3) Estimated GFR (Cockcroft-Gault) 79.4 BUN/Creatinine Ratio 36 (6-20) Glucose Level 144mg/dL (70-99) Calcium Level 9.2mg/dL (8.5-10.1) Phosphorus Level 4.2mg/dL (2.6-4.7) Magnesium Level 2.5mg/dL (1.8-2.4) Total Bilirubin 0.2mg/dL (0.2-1.0) Aspartate Amino Transf (AST/SGOT) 16U/L (15-37) Alanine Aminotransferase (ALT/SGPT) 10U/L (16-63) Alkaline Phosphatase 69U/L (46-116) Total Protein 7.2g/dL (6.4-8.2) Albumin 2.1g/dL (3.4-5.0) Albumin/Globulin Ratio 0.4 (1.0-1.7) Triglycerides Level 135mg/dL (0-150) Test 07/15/16 06:32 07/15/16 07:40 Glucose (Fingerstick) 142mg/dL (70-99) 168mg/dL (70-99) Review of Systems Review of Systems no SOA, CP. abd pain, (+) cough Assessment and Plan Assessmemt and Plan Problems Medical Problems: (1) COPD exacerbation Status: Acute (2) Hyperglycemia Status: Acute Problems: Comment Review of Relevant I have reviewed the following items valerie (where applicable) has been applied. Labs Laboratory Tests Test 07/13/16 08:00 07/13/16 08:54 07/13/16 11:05 07/13/16 14:13 O2 Saturation 97% (92-99) Arterial Blood pH 7.39 (7.35-7.45) Arterial Blood pCO2 at Patient Temp 43mmHg (35-46) Arterial Blood pO2 at Patient Temp 101mmHg (65-108) Arterial Blood HCO3 25mmol/L (21-28) Arterial Blood Base Excess 0mmol/L (-3-3) FiO2 30 Glucose (Fingerstick) 355mg/dL (70-99) 351mg/dL (70-99) 333mg/dL (70-99) Test 07/13/16 16:48 07/13/16 20:47 07/14/16 05:20 07/14/16 08:00 Glucose (Fingerstick) 273mg/dL (70-99) 189mg/dL (70-99) Sodium Level 136mmol/L (136-145) Potassium Level 6.1mmol/L (3.5-5.1) Chloride Level 103mmol/L (98-107) Carbon Dioxide Level 26mmol/L (21-32) Anion Gap 7 (6-14) Blood Urea Nitrogen 43mg/dL (8-26) Creatinine 1.5mg/dL (0.7-1.3) Estimated GFR (Cockcroft-Gault) 55.5 Glucose Level 282mg/dL (70-99) Calcium Level 8.8mg/dL (8.5-10.1) Phosphorus Level 6.7mg/dL (2.6-4.7) Magnesium Level 2.3mg/dL (1.8-2.4) Lactate Dehydrogenase 228U/L (85-227) Lipase 74U/L (73-393) Thyroid Stimulating Hormone (TSH) 0.161uIU/mL (0.358-3.74) O2 Saturation 95% (92-99) Arterial Blood pH 7.29 (7.35-7.45) Arterial Blood pCO2 at Patient Temp 52mmHg (35-46) Arterial Blood pO2 at Patient Temp 87mmHg (65-108) Arterial Blood HCO3 24mmol/L (21-28) Arterial Blood Base Excess -3mmol/L (-3-3) FiO2 30 Test 07/14/16 08:32 07/14/16 09:55 07/14/16 11:12 07/14/16 12:40 Glucose (Fingerstick) 271mg/dL (70-99) 256mg/dL (70-99) 232mg/dL (70-99) Potassium Level 5.4mmol/L (3.5-5.1) Uric Acid 3.9mg/dL (3.5-7.2) Creatine Kinase 67U/L (39-308) Test 07/14/16 13:00 07/14/16 13:02 07/14/16 14:06 07/14/16 15:14 Urine Collection Type Unknown Urine Color Yellow Urine Clarity Cloudy Urine pH 5.0 Urine Specific [place] 1.020 Urine Protein Negativemg/dL (NEG-TRACE) Urine Glucose (UA) Negativemg/dL (NEG) Urine Ketones (Stick) Negativemg/dL (NEG) Urine Blood Negative (NEG) Urine Nitrite Negative (NEG) Urine Bilirubin Negative (NEG) Urine Urobilinogen Dipstick 0.2mg/dL (0.2 mg/dL) Urine Leukocyte Esterase Small (NEG) Urine RBC Occ/HPF (0-2) Urine WBC 5-10/HPF (0-4) Urine Bacteria Few/HPF (0-FEW) Urine Hyaline Casts Few/HPF Urine Mucus Mod/LPF Urine Yeast Present/HPF Urine Random Sodium <20mmol/L (Not Estab.) Glucose (Fingerstick) 166mg/dL (70-99) 124mg/dL (70-99) 89mg/dL (70-99) Test 07/14/16 16:05 07/14/16 16:19 07/14/16 17:39 07/14/16 18:47 O2 Saturation 92% (92-99) Arterial Blood pH 7.31 (7.35-7.45) Arterial Blood pCO2 at Patient Temp 49mmHg (35-46) Arterial Blood pO2 at Patient Temp 67mmHg (65-108) Arterial Blood HCO3 24mmol/L (21-28) Arterial Blood Base Excess -2mmol/L (-3-3) FiO2 3 lpm nc Glucose (Fingerstick) 84mg/dL (70-99) 82mg/dL (70-99) 90mg/dL (70-99) Test 07/14/16 19:59 07/14/16 21:03 07/14/16 22:18 07/14/16 23:28 Glucose (Fingerstick) 82mg/dL (70-99) 93mg/dL (70-99) 87mg/dL (70-99) 137mg/dL (70-99) Test 07/15/16 00:32 07/15/16 01:33 07/15/16 02:30 07/15/16 03:32 Glucose (Fingerstick) 168mg/dL (70-99) 189mg/dL (70-99) 176mg/dL (70-99) 146mg/dL (70-99) Test 07/15/16 04:36 07/15/16 05:40 07/15/16 05:45 07/15/16 06:32 Glucose (Fingerstick) 120mg/dL (70-99) 134mg/dL (70-99) 142mg/dL (70-99) White Blood Count 10.9x10^3/uL (4.0-11.0) Red Blood Count 3.46x10^6/uL (4.30-5.70) Hemoglobin 9.6g/dL (13.0-17.5) Hematocrit 29.7% (39.0-53.0) Mean Corpuscular Volume 86fL (79-100) Mean Corpuscular Hemoglobin 28pg (25-35) Mean Corpuscular Hemoglobin Concent 32g/dL (31-37) Red Cell Distribution Width 14.3% (11.5-14.5) Platelet Count 428x10^3/uL (140-400) Neutrophils (%) (Auto) 86% (31-73) Lymphocytes (%) (Auto) 5% (24-48) Monocytes (%) (Auto) 8% (0-9) Eosinophils (%) (Auto) 0% (0-3) Basophils (%) (Auto) 1% (0-3) Neutrophils # (Auto) 9.4x10^3uL (1.8-7.7) Lymphocytes # (Auto) 0.6x10^3/uL (1.0-4.8) Monocytes # (Auto) 0.9x10^3/uL (0.0-1.1) Eosinophils # (Auto) 0.0x10^3/uL (0.0-0.7) Basophils # (Auto) 0.1x10^3/uL (0.0-0.2) Sodium Level 141mmol/L (136-145) Potassium Level 5.2mmol/L (3.5-5.1) Chloride Level 106mmol/L (98-107) Carbon Dioxide Level 25mmol/L (21-32) Anion Gap 10 (6-14) Blood Urea Nitrogen 40mg/dL (8-26) Creatinine 1.1mg/dL (0.7-1.3) Estimated GFR (Cockcroft-Gault) 79.4 BUN/Creatinine Ratio 36 (6-20) Glucose Level 144mg/dL (70-99) Calcium Level 9.2mg/dL (8.5-10.1) Phosphorus Level 4.2mg/dL (2.6-4.7) Magnesium Level 2.5mg/dL (1.8-2.4) Total Bilirubin 0.2mg/dL (0.2-1.0) Aspartate Amino Transf (AST/SGOT) 16U/L (15-37) Alanine Aminotransferase (ALT/SGPT) 10U/L (16-63) Alkaline Phosphatase 69U/L (46-116) Total Protein 7.2g/dL (6.4-8.2) Albumin 2.1g/dL (3.4-5.0) Albumin/Globulin Ratio 0.4 (1.0-1.7) Triglycerides Level 135mg/dL (0-150) Test 07/15/16 07:40 Glucose (Fingerstick) 168mg/dL (70-99) Laboratory Tests Test 07/14/16 08:00 07/14/16 08:32 07/14/16 09:55 07/14/16 11:12 O2 Saturation 95% (92-99) Arterial Blood pH 7.29 (7.35-7.45) Arterial Blood pCO2 at Patient Temp 52mmHg (35-46) Arterial Blood pO2 at Patient Temp 87mmHg (65-108) Arterial Blood HCO3 24mmol/L (21-28) Arterial Blood Base Excess -3mmol/L (-3-3) FiO2 30 Glucose (Fingerstick) 271mg/dL (70-99) 256mg/dL (70-99) 232mg/dL (70-99) Test 07/14/16 12:40 07/14/16 13:00 07/14/16 13:02 07/14/16 14:06 Potassium Level 5.4mmol/L (3.5-5.1) Uric Acid 3.9mg/dL (3.5-7.2) Creatine Kinase 67U/L (39-308) Urine Collection Type Unknown Urine Color Yellow Urine Clarity Cloudy Urine pH 5.0 Urine Specific [place] 1.020 Urine Protein Negativemg/dL (NEG-TRACE) Urine Glucose (UA) Negativemg/dL (NEG) Urine Ketones (Stick) Negativemg/dL (NEG) Urine Blood Negative (NEG) Urine Nitrite Negative (NEG) Urine Bilirubin Negative (NEG) Urine Urobilinogen Dipstick 0.2mg/dL (0.2 mg/dL) Urine Leukocyte Esterase Small (NEG) Urine RBC Occ/HPF (0-2) Urine WBC 5-10/HPF (0-4) Urine Bacteria Few/HPF (0-FEW) Urine Hyaline Casts Few/HPF Urine Mucus Mod/LPF Urine Yeast Present/HPF Urine Random Sodium <20mmol/L (Not Estab.) Glucose (Fingerstick) 166mg/dL (70-99) 124mg/dL (70-99) Test 07/14/16 15:14 07/14/16 16:05 07/14/16 16:19 07/14/16 17:39 Glucose (Fingerstick) 89mg/dL (70-99) 84mg/dL (70-99) 82mg/dL (70-99) O2 Saturation 92% (92-99) Arterial Blood pH 7.31 (7.35-7.45) Arterial Blood pCO2 at Patient Temp 49mmHg (35-46) Arterial Blood pO2 at Patient Temp 67mmHg (65-108) Arterial Blood HCO3 24mmol/L (21-28) Arterial Blood Base Excess -2mmol/L (-3-3) FiO2 3 lpm nc Test 07/14/16 18:47 07/14/16 19:59 07/14/16 21:03 07/14/16 22:18 Glucose (Fingerstick) 90mg/dL (70-99) 82mg/dL (70-99) 93mg/dL (70-99) 87mg/dL (70-99) Test 07/14/16 23:28 07/15/16 00:32 07/15/16 01:33 07/15/16 02:30 Glucose (Fingerstick) 137mg/dL (70-99) 168mg/dL (70-99) 189mg/dL (70-99) 176mg/dL (70-99) Test 07/15/16 03:32 07/15/16 04:36 07/15/16 05:40 07/15/16 05:45 Glucose (Fingerstick) 146mg/dL (70-99) 120mg/dL (70-99) 134mg/dL (70-99) White Blood Count 10.9x10^3/uL (4.0-11.0) Red Blood Count 3.46x10^6/uL (4.30-5.70) Hemoglobin 9.6g/dL (13.0-17.5) Hematocrit 29.7% (39.0-53.0) Mean Corpuscular Volume 86fL (79-100) Mean Corpuscular Hemoglobin 28pg (25-35) Mean Corpuscular Hemoglobin Concent 32g/dL (31-37) Red Cell Distribution Width 14.3% (11.5-14.5) Platelet Count 428x10^3/uL (140-400) Neutrophils (%) (Auto) 86% (31-73) Lymphocytes (%) (Auto) 5% (24-48) Monocytes (%) (Auto) 8% (0-9) Eosinophils (%) (Auto) 0% (0-3) Basophils (%) (Auto) 1% (0-3) Neutrophils # (Auto) 9.4x10^3uL (1.8-7.7) Lymphocytes # (Auto) 0.6x10^3/uL (1.0-4.8) Monocytes # (Auto) 0.9x10^3/uL (0.0-1.1) Eosinophils # (Auto) 0.0x10^3/uL (0.0-0.7) Basophils # (Auto) 0.1x10^3/uL (0.0-0.2) Sodium Level 141mmol/L (136-145) Potassium Level 5.2mmol/L (3.5-5.1) Chloride Level 106mmol/L (98-107) Carbon Dioxide Level 25mmol/L (21-32) Anion Gap 10 (6-14) Blood Urea Nitrogen 40mg/dL (8-26) Creatinine 1.1mg/dL (0.7-1.3) Estimated GFR (Cockcroft-Gault) 79.4 BUN/Creatinine Ratio 36 (6-20) Glucose Level 144mg/dL (70-99) Calcium Level 9.2mg/dL (8.5-10.1) Phosphorus Level 4.2mg/dL (2.6-4.7) Magnesium Level 2.5mg/dL (1.8-2.4) Total Bilirubin 0.2mg/dL (0.2-1.0) Aspartate Amino Transf (AST/SGOT) 16U/L (15-37) Alanine Aminotransferase (ALT/SGPT) 10U/L (16-63) Alkaline Phosphatase 69U/L (46-116) Total Protein 7.2g/dL (6.4-8.2) Albumin 2.1g/dL (3.4-5.0) Albumin/Globulin Ratio 0.4 (1.0-1.7) Triglycerides Level 135mg/dL (0-150) Test 07/15/16 06:32 07/15/16 07:40 Glucose (Fingerstick) 142mg/dL (70-99) 168mg/dL (70-99) Microbiology 07/13/16 Urine Culture - Preliminary, Resulted 07/13/16 Urine Culture Result 1 (MARÍA) - Preliminary, Resulted Medications Current Medications Albuterol/ Ipratropium (Duoneb) 6 ml 1X ONCE NEB Last administered on 12:34; Start 07/12/16 at 12:30; Stop 07/12/16 at 12:31; Status DC Prednisone 60 mg 60 mg 1X ONCE PO Last administered on 07/12/16 12:40; Start 07/12/16 at 12:30; Stop 07/12/16 at 12:31; Status DC Sodium Chloride (Iv Sodium Chloride 0.9% 1000ml Bag) 1,000 ml @ 1,000 mls/hr 1X ONCE IV Last administered on 07/12/16 13:12; Start 07/12/16 at 13:15; Stop 07/12/16 at 14:14; Status DC Insulin Human Regular (Novolin R Vial) 10 unit 1X ONCE IV Last administered on 07/12/16 13:16; Start 07/12/16 at 13:15; Stop 07/12/16 at 13:16; Status DC Diphenhydramine HCl (Benadryl) 50 mg STK-MED ONCE .ROUTE ; Start 07/12/16 at 14: 55; Stop 07/12/16 at 14:56; Status DC Diphenhydramine HCl (Benadryl) 50 mg 1X ONCE IVP Last administered on 15:15; Start 07/12/16 at 15:15; Stop 07/12/16 at 15:16; Status DC Atorvastatin Calcium (Lipitor) 40 mg HS PO ; Start 07/12/16 at 21:00 Diltiazem HCl (Cardizem 24hr Cd) 240 mg DAILY PO ; Start 07/12/16 at 16:30; Stop 07/13/16 at 17:18; Status DC Insulin Aspart (Novolog) 10 units TIDAC SQ ; Start 07/12/16 at 16:30; Stop 07/12 at 16:30; Status DC Insulin Detemir (Levemir) 20 units QHS SQ ; Start 07/12/16 at 21:00; Stop at 21:00; Status DC Promethazine HCl/ Codeine (Phenergan With Codeine) 5 ml QID PO ; Start 07/12/16 at 17:00; Stop 07/13/16 at 17:18; Status DC Non-Formulary Medication 2 puff BID IH ; Start 07/12/16 at 21:00; Status UNV Non-Formulary Medication 2.5 gm DAILY IH ; Start 07/13/16 at 09:00; Status UNV Budesonide (Pulmicort) 0.5 mg RTBID NEB Last administered on 07/13/16 07:30; Start 07/12/16 at 20:00; Stop 07/13/16 at 11:27; Status DC Albuterol/ Ipratropium (Duoneb) 3 ml RTQID NEB Last administered on 07/14/16 20:10; Start 07/12/16 at 20:00 Methylprednisolone Sodium Succinate (Solu-Medrol 40mg Vial) 60 mg 1X ONCE IV Last administered on 07/12/16 16:06; Start 07/12/16 at 16:30; Stop 07/12/16 at 16:31; Status DC Methylprednisolone Sodium Succinate (Solu-Medrol 40mg Vial) 60 mg DAILY IV ; Start 07/13/16 at 09:00; Stop 07/13/16 at 09:00; Status DC Pantoprazole Sodium (Protonix Vial) 40 mg DAILY IVP Last administered on 08:34; Start 07/13/16 at 09:00 Diphenhydramine HCl 25 mg 25 mg PRN Q6HRS PRN IVP ANAPHYLAXIS Last administered on 07/12/16 16:06; Start 07/12/16 at 16:00 Sodium Chloride (Iv Sodium Chloride 0.9% 1000ml Bag) 1,000 ml @ 150 mls/hr Q6H40M IV Last administered on 07/14/16 01:21; Start 07/12/16 at 16:30; Stop 07/14/16 at 09:31; Status DC Albuterol/ Ipratropium (Duoneb) 3 ml QID NEB ; Start 07/12/16 at 17:00; Status UNV Albuterol Sulfate (Ventolin Neb Soln) 2.5 mg PRN Q2HR PRN NEB SHORTNESS OF BREATH Last administered on 07/15/16 04:15; Start 07/12/16 at 16:00 Insulin Aspart (Novolog) 0-9 UNITS QID SQ Last administered on 07/14/16 08:37 ; Start 07/12/16 at 17:00; Stop 07/14/16 at 09:31; Status DC Dextrose 12.5 gm PRN Q15MIN PRN IV SEE COMMENTS; Start 07/12/16 at 16:00 Insulin Detemir (Levemir) 15 units QHS SQ ; Start 07/12/16 at 21:00; Stop at 21:00; Status DC Enoxaparin Sodium (Lovenox 40mg Syringe) 40 mg DAILY SQ Last administered on 08:36; Start 07/12/16 at 16:30 Insulin Detemir (Levemir) 20 units QHS SQ Last administered on 07/12/16 23:49 ; Start 07/12/16 at 21:00; Stop 07/13/16 at 15:18; Status DC Succinylcholine Chloride 200 mg 200 mg STK-MED ONCE .ROUTE ; Start 07/12/16 at 17:46; Stop 07/12/16 at 17:47; Status DC Propofol (Diprivan) 100 ml @ As Directed STK-MED ONCE IV ; Start 07/12/16 at 17 :46; Stop 07/12/16 at 17:47; Status DC Lidocaine HCl 100 mg STK-MED ONCE .ROUTE ; Start 07/12/16 at 18:02; Stop at 18:03; Status DC Ketamine HCl 500 mg 1X ONCE IV ; Start 07/12/16 at 18:30; Stop 07/12/16 at 18: 31; Status DC Midazolam HCl (Versed) 5 mg STK-MED ONCE .ROUTE ; Start 07/12/16 at 18:14; Stop 07/12/16 at 18:15; Status DC Midazolam HCl (Versed) 2 mg 1X ONCE IV ; Start 07/12/16 at 18:30; Stop at 18:31; Status DC Glycopyrrolate (Robinul) 1 mg 1X ONCE IV ; Start 07/12/16 at 18:30; Stop at 18:31; Status DC Oxymetazoline HCl (Afrin) 2 spray 1X ONCE NS ; Start 07/12/16 at 18:30; Stop at 18:31; Status DC Lidocaine HCl 30 ml STK-MED ONCE .ROUTE ; Start 07/12/16 at 18:19; Stop at 18:20; Status DC Vecuronium [place] 6 mg 6 mg PRN Q4HRS PRN IV ANXIETY / AGITATION Last administered on 07/12/16 19:55; Start 07/12/16 at 19:00 Propofol (Diprivan) 100 ml @ 0 mls/hr CONT PRN IV SEE I/O RECORD Last administered on 07/14/16 13:42; Start 07/12/16 at 19:00 Insulin Aspart 10 units 10 units 1X ONCE SQ Last administered on 07/12/16 19: 41; Start 07/12/16 at 19:45; Stop 07/12/16 at 19:46; Status DC Vecuronium [place] 100 mg/ Dextrose 100 ml @ 0 mls/hr CONT PRN IV SEE I/O RECORD Last administered on 3/21/17at 20:48; Start 07/12/16 at 21:00; Stop 07/14 at 09:31; Status DC Fentanyl Citrate (Fentanyl 600 Mcg/30 ml COMM[employer]ICATION [employer]MENT [employer]CH[employer]IC) 30 ml @ 0 mls/hr CONT PRN IV PROTOCOL Last administered on 07/14/16 09:33; Start 07/12/16 at 22:00 Chlorhexidine Gluconate (Peridex) 15 ml BID MM Last administered on 07/14/16 21:02; Start 07/13/16 at 09:00 Methylprednisolone Sodium Succinate (Solu-Medrol 125mg Vial) 125 mg BID IV Last administered on 07/14/16 21:02; Start 07/13/16 at 09:00 Rocuronium [place] (Zemuron) 50 mg STK-MED ONCE .ROUTE ; Start 07/12/16 at 15:00 ; Stop 07/13/16 at 08:54; Status DC Glycopyrrolate (Robinul) 1 mg STK-MED ONCE .ROUTE ; Start 07/12/16 at 15:00; Stop 07/13/16 at 08:54; Status DC Lidocaine HCl 30 ml STK-MED ONCE .ROUTE ; Start 07/12/16 at 18:00; Stop at 09:05; Status DC Midazolam HCl (Versed) 5 mg STK-MED ONCE .ROUTE ; Start 07/12/16 at 18:00; Stop 07/13/16 at 09:05; Status DC Propofol (Diprivan) 1,000 mg STK-MED ONCE IV ; Start 07/12/16 at 18:00; Stop at 09:05; Status DC Succinylcholine Chloride (Anectine) 200 mg STK-MED ONCE .ROUTE ; Start 07/12/16 at 18:00; Stop 07/13/16 at 09:05; Status DC Multi-Ingred Cream/Lotion/Oil/ Oint (Artificial Tears Eye Oint) 1 margie PRN Q1HR PRN OU DRY EYE Last administered on 07/13/16 15:45; Start 07/13/16 at 11:00 Ketamine HCl 500 mg STK-MED ONCE .ROUTE ; Start 07/12/16 at 18:30; Stop at 12:05; Status DC Insulin Aspart (Novolog) 10 units 1X STAT SQ Last administered on 07/13/16 12 :36; Start 07/13/16 at 12:17; Stop 07/13/16 at 12:20; Status DC Insulin Aspart (Novolog) 10 units 1X ONCE SQ Last administered on 07/13/16 14 :31; Start 07/13/16 at 14:30; Stop 07/13/16 at 14:31; Status DC Insulin Detemir (Levemir) 40 units QHS SQ Last administered on 07/13/16 20:50 ; Start 07/13/16 at 21:00; Stop 07/14/16 at 09:31; Status DC Benzocaine (Hurricaine One) 1 spray STK-MED ONCE .ROUTE ; Start 07/12/16 at 12: 00; Stop 07/13/16 at 16:00; Status DC Lidocaine HCl 5 margie 5 margie STK-MED ONCE TP ; Start 07/12/16 at 12:00; Stop at 16:00; Status DC Insulin Human Regular/Sodium Chloride (Novolin R Vial/ Iv Normal Saline 150ml) 151.5 ml @ 0 mls/hr CONT PRN IV SEE I/O RECORD Last administered on 07/14/16 10:01; Start 07/14/16 at 09:30 Info 1 each 1 each PRN DAILY PRN MC SEE COMMENTS Last administered on 13:36; Start 07/14/16 at 09:30 Magnesium Sulfate/ Dextrose 50 ml @ 25 mls/hr PRN DAILY PRN IV for Mag < 1.7 on am labs; Start 07/14/16 at 11:15 Sodium Chloride 500 ml @ 500 mls/hr QID PRN IV UO< 30cc/hr over previous 6hrs ; Start 07/14/16 at 11:15; Stop 07/14/16 at 11:26; Status DC Sodium Chloride 500 ml @ 500 mls/hr PRN QID PRN IV UO< 30cc/hr over previous 6hrs; Start 07/14/16 at 11:26 Ceftriaxone Sodium 1 gm/ Sodium Chloride 50 ml @ 100 mls/hr Q24H IV Last administered on 07/14/16 13:41; Start 07/14/16 at 12:00; Stop 07/20/16 at 12:29 Sodium Chloride/ Magnesium Sulfate/ Calcium Gluconate/ Multivitamins/ Chromium/ Copper/ Manganese/Seleni/ Zn/Total Parenteral Nutrition/Amino Acids/Dextrose ( Sodium Chloride/ Infuvite Adult/ Multitrace-5 Conc/ Tpn - Tpn Fluid/ Trophamine / Dextrose 70%-Water Iv Soln) 1,512 ml @ 63 mls/hr TPN CONT IV Last administered on 07/14/16t 22:29; Start 07/14/16 at 22:00; Stop 07/15/16 at 21:59 Hydralazine HCl (Apresoline) 10 mg PRN Q4HRS PRN IVP ELEVATED BP, SEE COMMENTS ; Start 07/14/16 at 22:30 Active Scripts Active Levemir Flextouch (Insulin Detemir) 100 Unit/1 Ml Insuln.pen 20 Units SQ QHS 30 Days Novolog Flexpen (Insulin Aspart) 100 Unit/1 Ml Insuln.pen 10 Units SQ TIDAC 30 Days Reported Advair 100-50 Diskus (Fluticasone/Salmeterol) 1 Each Disk.w.dev 1 Puff IH BID Spiriva Respimat (Tiotropium Sunset) 4 Gm Mist.inhal 2.5 Gm IH DAILY Symbicort 160-4.5 Mcg Inhaler (Budesonide/Formoterol Fumarate) 10.2 Gm Hfa.aer.ad 2 Puff IH BID Atorvastatin Calcium 20 Mg Tablet 20 Mg PO HS Lisinopril-Hctz 10-12.5 Mg Tab (Lisinopril/Hydrochlorothiazide) 1 Each Tablet 1 Tab PO DAILY Isosorbide Mononitrate Er (Isosorbide Mononitrate) 120 Mg Tab.er.24h 120 Mg PO DAILY Novolin N (Nph, Human Insulin Isophane) 100 Unit/1 Ml Vial 0 SQ Promethazine-Codeine Syrup (Promethazine Hcl/Codeine) 118 Ml Syrup 5 Ml PO Q4- 6HRS Diltiazem 24HR Cd (Diltiazem Hcl) 240 Mg Cap.er.24h 240 Mg PO DAILY NITROGLYCERIN SubLingual (Nitroglycerin) 0.4 Mg Tab.subl 0.4 Mg SL PRN Q5MIN PRN Atorvastatin Calcium 40 Mg Tablet 40 Mg PO HS Vitals/I & O Vital Sign - Last 24 Hours 07/14/16 07/14/16 07/14/16 07/14/16 08:00 08:00 09:00 09:01 Temp 98.1 98.1 Pulse 80 80 Resp 18 18 B/P 120/63 113/61 Pulse Ox 98 98 99 O2 Delivery Mechanical Ventilator Ventilator Ventilator Ventilator 07/14/16 07/14/16 07/14/16 07/14/16 09:33 10:00 10:03 11:00 Pulse 84 86 Resp 20 18 18 18 B/P 130/63 130/62 Pulse Ox 98 96 98 96 O2 Delivery Ventilator Ventilator Ventilator Ventilator 07/14/16 07/14/16 07/14/16 07/14/16 12:00 12:00 12:23 13:00 Temp 98.4 98.4 Pulse 96 92 Resp 18 18 B/P 122/62 107/61 Pulse Ox 97 99 98 O2 Delivery Mechanical Ventilator Ventilator Ventilator Ventilator 07/14/16 07/14/16 07/14/16 07/14/16 13:26 14:00 15:00 16:00 Pulse 100 98 Resp 18 20 B/P 133/68 147/77 Pulse Ox 100 96 94 O2 Delivery Ventilator Ventilator Nasal Cannula Nasal Cannula O2 Flow Rate 4.0 07/14/16 07/14/16 07/14/16 07/14/16 16:00 16:21 17:00 18:00 Temp 98.2 98.2 Pulse 81 80 79 Resp 24 22 24 B/P 153/82 170/82 156/80 Pulse Ox 97 92 90 O2 Delivery Nasal Cannula Nasal Cannula Nasal Cannula Nasal Cannula O2 Flow Rate 3.0 3.0 3.0 4.0 07/14/16 07/14/16 07/14/16 07/14/16 19:00 20:00 20:00 20:11 Temp 98.6 98.6 Pulse 79 80 Resp 20 22 B/P 174/94 164/95 Pulse Ox 95 100 95 O2 Delivery Nasal Cannula Nasal Cannula Nasal Cannula Nasal Cannula O2 Flow Rate 5.0 5.0 5.0 5.0 07/14/16 07/14/16 07/14/16 07/15/16 21:00 22:00 23:00 00:00 Temp 98.7 98.7 Pulse 92 77 74 85 Resp 20 18 20 16 B/P 167/83 176/88 168/78 167/82 Pulse Ox 97 96 98 96 O2 Delivery Nasal Cannula Nasal Cannula Nasal Cannula Nasal Cannula O2 Flow Rate 5.0 5.0 5.0 5.0 07/15/16 07/15/16 07/15/16 07/15/16 00:00 01:00 02:00 03:00 Pulse 84 90 101 Resp 18 20 24 B/P 160/67 170/82 178/96 Pulse Ox 98 92 94 O2 Delivery Nasal Cannula Nasal Cannula Nasal Cannula Nasal Cannula O2 Flow Rate 5.0 5.0 3.0 3.0 07/15/16 07/15/16 07/15/16 07/15/16 04:00 04:00 04:16 05:00 Temp 98.6 98.6 Pulse 67 68 Resp 18 16 B/P 169/86 161/80 Pulse Ox 98 97 98 O2 Delivery Nasal Cannula Nasal Cannula Nasal Cannula Nasal Cannula O2 Flow Rate 3.0 3.0 5.0 3.0 07/15/16 07/15/16 06:00 07:00 Pulse 64 68 Resp 20 20 B/P 162/82 146/79 Pulse Ox 97 96 O2 Delivery Nasal Cannula Nasal Cannula O2 Flow Rate 3.0 3.0 Intake and Output 07/14/16 07/14/16 07/15/16 15:00 23:00 07:00 Intake Total 120 ml 1367 ml 95 ml Output Total 245 ml 650 ml 475 ml Balance -125 ml 717 ml -380 ml BALA BRYANT MD Jul 15, 2016 08:04
[2016-07-15] MEDS: IPRATRPIUM/ALBUTEROL 0.5/2.5MG 3 ML NEBU. NEB SCH ×4 (08:10→19:35)
--- NOTE | 2016-07-15 08:28 | PDOC ---
SUBJECTIVE ROS F/up for ^K Self extubated himself yesterday, denies SOB. CVS: no Orthopnea, no CP RESP: no SOB, no CUELLAR GI: no Nausea, no Vomiting : no Dysuria, no Urgency OBJECTIVE Vital Signs Vital Signs Date Time Temp Pulse Resp B/P Pulse Ox O2 Delivery O2 Flow Rate FiO2 07/15/16 08:00 98.6 66 22 154/82 93 Nasal Cannula 3.0 98.6 I & 0 Intake and Output 07/15/16 07:00 Intake Total 1582 ml Output Total 1370 ml Balance 212 ml IV Total 1562 ml Other 20 ml Output Urine Total 1370 ml PHYSICAL EXAM Physical Exam General Appearance: AAO x 3 In no Distress Eyes: Sclera Anicteric vs [place] Conjunctiva (? Normal for him? vs min erythema; ? Dec Vision EN: No EN Drainage Mucous Memb. Moist now; still some halitosis Neck: no JVD no JVP Supple no Thyromegaly CVS: S1 S2 no Murmur No Gallop No Rub no Edema Resp: no Rales occ Rhonchi no Acc. Muscle use GI: BS +ve NO Bruit Non Tender Non Distended : no CVA tenderness; no Suprapubic Tenderness Assessment & Plan ARF (Oliguria) : Appears to be somewhat Intravascularly Dry as noted by Rodrick, CVP were low so IVF Boluses + Gtt will be contd. Rodrick was < 20. Dehydration - IVF ^K - ? asso with dec distal Na delivery in setting of Oliguria and #2 - will ct IV NS, TPN, ? Low TSH playing a role too ? HyperThyroid state - will check Free T4 and T3 ^Phos: better with TPN and after FSBS are better controlled on Insulin gtt UTI - Await Cx - Rocephin for now. CFU are low Protein Gap - Eval for Paraprotein with 24-hr ruine Proteinuria on UA - ? Underlying DM/ HTN sive / NS cannot be ruled out; May need Aldactazide if unable to take ADAN-i/ ARB due to recent ANgioedema HTN: Current BP meds reviewed. See orders for changes. Restart PO meds once able to take PO. COMMENT/RELEVANT DATA Meds Current Medications Medications (Trade) Dose Ordered Sig/[place] Start Time Stop Time Status Last Admin Dose Admin Albuterol Sulfate (Ventolin Neb Soln) 2.5 mg PRN Q2HR PRN 07/12/16 16:00 07/15/16 04:15 2.5 MG Albuterol/ Ipratropium (Duoneb) 3 ml QID 07/12/16 17:00 UNV Atorvastatin Calcium (Lipitor) 40 mg HS 07/12/16 21:00 Benzocaine (Hurricaine One) 1 spray STK-MED ONCE 07/12/16 12:00 07/13/16 16:00 DC Budesonide (Pulmicort) 0.5 mg RTBID 07/12/16 20:00 07/13/16 11:27 DC 07/13/16 07:30 0.5 MG Ceftriaxone Sodium 1 gm/ Sodium Chloride 50 ml @ 100 mls/hr Q24H 07/14/16 12:00 07/20/16 12:29 07/14/16 13:41 100 MLS/HR Chlorhexidine Gluconate (Peridex) 15 ml BID 07/13/16 09:00 07/14/16 21:02 15 ML Dextrose 12.5 gm PRN Q15MIN PRN 07/15/16 08:00 Diltiazem HCl (Cardizem 24hr Cd) 240 mg DAILY 07/15/16 09:00 Diphenhydramine HCl (Benadryl) 50 mg 1X ONCE 07/12/16 15:15 07/12/16 15:16 DC 07/12/16 15:15 50 MG Diphenhydramine HCl 25 mg 25 mg PRN Q6HRS PRN 07/12/16 16:00 07/12/16 16:06 25 MG Enoxaparin Sodium (Lovenox 40mg Syringe) 40 mg DAILY 07/12/16 16:30 07/14/16 08:36 40 MG Fentanyl Citrate (Fentanyl 600 Mcg/30 ml NEEDLE POLISHER) 30 ml @ 0 mls/hr CONT PRN 07/12/16 22:00 07/15/16 07:58 DC 07/14/16 09:33 1.25 MLS/HR Glycopyrrolate (Robinul) 1 mg STK-MED ONCE 07/12/16 15:00 07/13/16 08:54 DC Guaifenesin (Mucinex) 600 mg BID 07/15/16 09:00 Hydralazine HCl (Apresoline) 10 mg PRN Q4HRS PRN 07/14/16 22:30 Hydrochlorothiazide (Microzide) 12.5 mg DAILY 07/15/16 09:00 Info 1 each 1 each PRN DAILY PRN 07/14/16 09:30 07/14/16 13:36 1 EACH Insulin Aspart (Novolog) 10 units TIDAC 07/15/16 11:30 Insulin Aspart 10 units 10 units 1X ONCE 07/12/16 19:45 07/12/16 19:46 DC 07/12/16 19:41 10 UNITS Insulin Detemir (Levemir) 20 units QHS 07/15/16 21:00 Insulin Human Regular (Novolin R Vial) 10 unit 1X ONCE 07/12/16 13:15 07/12/16 13:16 DC 07/12/16 13:16 10 UNIT Insulin Human Regular/Sodium Chloride (Novolin R Vial/ Iv Normal Saline 150ml) 151.5 ml @ 0 mls/hr CONT PRN 07/14/16 09:30 07/15/16 07:58 DC 07/14/16 10:01 3.9 MLS/HR Isosorbide Mononitrate (Imdur) 120 mg DAILY 07/15/16 09:00 Ketamine HCl 500 mg STK-MED ONCE 07/12/16 18:30 07/13/16 12:05 DC Lidocaine HCl 30 ml STK-MED ONCE 07/12/16 18:00 07/13/16 09:05 DC Lidocaine HCl 5 margie 5 margie STK-MED ONCE 07/12/16 12:00 07/13/16 16:00 DC Magnesium Sulfate/ Dextrose 50 ml @ 25 mls/hr PRN DAILY PRN 07/14/16 11:15 07/15/16 07:58 DC Methylprednisolone Sodium Succinate (Solu-Medrol 40mg Vial) 60 mg DAILY 07/13/16 09:00 07/13/16 09:00 DC Methylprednisolone Sodium Succinate (Solu-Medrol 125mg Vial) 125 mg DAILY 07/15/16 09:00 Midazolam HCl (Versed) 5 mg STK-MED ONCE 07/12/16 18:00 07/13/16 09:05 DC Multi-Ingred Cream/Lotion/Oil/ Oint (Artificial Tears Eye Oint) 1 margie PRN Q1HR PRN 07/13/16 11:00 07/13/16 15:45 1 MARGIE Mupirocin (Bactroban) 1 margie BID 07/15/16 09:00 Non-Formulary Medication 2.5 gm DAILY 07/13/16 09:00 UNV Oxymetazoline HCl (Afrin) 2 spray 1X ONCE 07/12/16 18:30 07/12/16 18:31 DC Pantoprazole Sodium (Protonix Vial) 40 mg DAILY 07/13/16 09:00 07/14/16 08:34 40 MG Prednisone (Prednisone) 60 mg 1X ONCE 07/12/16 12:30 07/12/16 12:31 DC 07/12/16 12:40 60 MG Promethazine HCl/ Codeine (Phenergan With Codeine) 5 ml QID 07/12/16 17:00 07/13/16 17:18 DC Propofol (Diprivan) 1,000 mg STK-MED ONCE 07/12/16 18:00 07/13/16 09:05 DC Rocuronium [place] (Zemuron) 50 mg STK-MED ONCE 07/12/16 15:00 07/13/16 08:54 DC Sodium Polystyrene Sulfonate (Kayexalate) 30 gm 1X ONCE 07/15/16 08:00 07/15/16 08:08 DC Sodium Chloride 500 ml @ 500 mls/hr PRN QID PRN 07/14/16 11:26 Sodium Chloride (Iv Sodium Chloride 0.9% 1000ml Bag) 1,000 ml @ 150 mls/hr Q6H40M 07/12/16 16:30 07/14/16 09:31 DC 07/14/16 01:21 100 MLS/HR Sodium Chloride/ Magnesium Sulfate/ Calcium Gluconate/ Multivitamins/ Chromium/Copper/ Manganese/Seleni/ Zn/Total Parenteral Nutrition/Amino Acids/Dextrose (Sodium Chloride/ Infuvite Adult/ Multitrace-5 Conc/ Tpn - Tpn Fluid/ Trophamine/ Dextrose 70%-Water Iv Soln) 1,512 ml @ 63 mls/hr TPN CONT 07/14/16 22:00 07/15/16 21:59 07/14/16 22:29 63 MLS/HR Succinylcholine Chloride (Anectine) 200 mg STK-MED ONCE 07/12/16 18:00 07/13/16 09:05 DC Vecuronium [place] 100 mg/ Dextrose 100 ml @ 0 mls/hr CONT PRN 07/12/16 21:00 07/14/16 09:31 DC 07/13/16 20:48 2.58 MLS/HR Vecuronium [place] (Norcuron Bolus) 6 mg PRN Q4HRS PRN 07/12/16 19:00 07/15/16 07:58 DC 07/12/16 19:55 6 MG Lab Laboratory Tests Test 07/14/16 08:32 07/14/16 09:55 07/14/16 11:12 07/14/16 12:40 Glucose (Fingerstick) 271mg/dL (70-99) 256mg/dL (70-99) 232mg/dL (70-99) Potassium Level 5.4mmol/L (3.5-5.1) Uric Acid 3.9mg/dL (3.5-7.2) Creatine Kinase 67U/L (39-308) Test 07/14/16 13:00 07/14/16 13:02 07/14/16 14:06 07/14/16 15:14 Urine Collection Type Unknown Urine Color Yellow Urine Clarity Cloudy Urine pH 5.0 Urine Specific [place] 1.020 Urine Protein Negativemg/dL (NEG-TRACE) Urine Glucose (UA) Negativemg/dL (NEG) Urine Ketones (Stick) Negativemg/dL (NEG) Urine Blood Negative (NEG) Urine Nitrite Negative (NEG) Urine Bilirubin Negative (NEG) Urine Urobilinogen Dipstick 0.2mg/dL (0.2 mg/dL) Urine Leukocyte Esterase Small (NEG) Urine RBC Occ/HPF (0-2) Urine WBC 5-10/HPF (0-4) Urine Bacteria Few/HPF (0-FEW) Urine Hyaline Casts Few/HPF Urine Mucus Mod/LPF Urine Yeast Present/HPF Urine Random Sodium <20mmol/L (Not Estab.) Glucose (Fingerstick) 166mg/dL (70-99) 124mg/dL (70-99) 89mg/dL (70-99) Test 07/14/16 16:05 07/14/16 16:19 07/14/16 17:39 07/14/16 18:47 O2 Saturation 92% (92-99) Arterial Blood pH 7.31 (7.35-7.45) Arterial Blood pCO2 at Patient Temp 49mmHg (35-46) Arterial Blood pO2 at Patient Temp 67mmHg (65-108) Arterial Blood HCO3 24mmol/L (21-28) Arterial Blood Base Excess -2mmol/L (-3-3) FiO2 3 lpm nc Glucose (Fingerstick) 84mg/dL (70-99) 82mg/dL (70-99) 90mg/dL (70-99) Test 07/14/16 19:59 07/14/16 21:03 07/14/16 22:18 07/14/16 23:28 Glucose (Fingerstick) 82mg/dL (70-99) 93mg/dL (70-99) 87mg/dL (70-99) 137mg/dL (70-99) Test 07/15/16 00:32 07/15/16 01:33 07/15/16 02:30 07/15/16 03:32 Glucose (Fingerstick) 168mg/dL (70-99) 189mg/dL (70-99) 176mg/dL (70-99) 146mg/dL (70-99) Test 07/15/16 04:36 07/15/16 05:40 07/15/16 05:45 07/15/16 06:32 Glucose (Fingerstick) 120mg/dL (70-99) 134mg/dL (70-99) 142mg/dL (70-99) White Blood Count 10.9x10^3/uL (4.0-11.0) Red Blood Count 3.46x10^6/uL (4.30-5.70) Hemoglobin 9.6g/dL (13.0-17.5) Hematocrit 29.7% (39.0-53.0) Mean Corpuscular Volume 86fL (79-100) Mean Corpuscular Hemoglobin 28pg (25-35) Mean Corpuscular Hemoglobin Concent 32g/dL (31-37) Red Cell Distribution Width 14.3% (11.5-14.5) Platelet Count 428x10^3/uL (140-400) Neutrophils (%) (Auto) 86% (31-73) Lymphocytes (%) (Auto) 5% (24-48) Monocytes (%) (Auto) 8% (0-9) Eosinophils (%) (Auto) 0% (0-3) Basophils (%) (Auto) 1% (0-3) Neutrophils # (Auto) 9.4x10^3uL (1.8-7.7) Lymphocytes # (Auto) 0.6x10^3/uL (1.0-4.8) Monocytes # (Auto) 0.9x10^3/uL (0.0-1.1) Eosinophils # (Auto) 0.0x10^3/uL (0.0-0.7) Basophils # (Auto) 0.1x10^3/uL (0.0-0.2) Segmented Neutrophils % 79% (35-66) Band Neutrophils % 5% (0-9) Lymphocytes % 9% (24-48) Monocytes % 7% (0-10) Platelet Estimate Increased (ADEQUATE) Sodium Level 141mmol/L (136-145) Potassium Level 5.2mmol/L (3.5-5.1) Chloride Level 106mmol/L (98-107) Carbon Dioxide Level 25mmol/L (21-32) Anion Gap 10 (6-14) Blood Urea Nitrogen 40mg/dL (8-26) Creatinine 1.1mg/dL (0.7-1.3) Estimated GFR (Cockcroft-Gault) 79.4 BUN/Creatinine Ratio 36 (6-20) Glucose Level 144mg/dL (70-99) Calcium Level 9.2mg/dL (8.5-10.1) Phosphorus Level 4.2mg/dL (2.6-4.7) Magnesium Level 2.5mg/dL (1.8-2.4) Total Bilirubin 0.2mg/dL (0.2-1.0) Aspartate Amino Transf (AST/SGOT) 16U/L (15-37) Alanine Aminotransferase (ALT/SGPT) 10U/L (16-63) Alkaline Phosphatase 69U/L (46-116) Total Protein 7.2g/dL (6.4-8.2) Albumin 2.1g/dL (3.4-5.0) Albumin/Globulin Ratio 0.4 (1.0-1.7) Triglycerides Level 135mg/dL (0-150) Test 07/15/16 07:40 Glucose (Fingerstick) 168mg/dL (70-99) FELIBERTO GIL MD Jul 15, 2016 08:28
[2016-07-15] MEDS: ENOXAPARIN 40 MG/0.4 ML SYRINGE. SQ SCH (08:54)
[2016-07-15] MEDS: CHLORHEXIDINE 0.12% 15 ML MOUTHWASH. MM SCH ×2 (08:55→21:28)
[2016-07-15] MEDS: MUPIROCIN 2 % NASAL OINTMENT 22GM TUBE. NS SCH ×2 (08:55→21:28)
[2016-07-15] MEDS: PANTOPRAZOLE IV PUSH 40 MG VIAL. IVP SCH (08:55)
[2016-07-15] MEDS ORDERED: ISOSORBIDE MONONITRATE ER 30 MG TAB.ER.24H PO SCH (09:00)
[2016-07-15] MEDS ORDERED: ISOSORBIDE MONONITRATE ER 60 MG TAB.ER.24H PO SCH (09:00)
[2016-07-15] MEDS: GUAIFENESIN ER 600 MG TABLET.ER PO SCH ×2 (09:00→20:27)
[2016-07-15] MEDS ORDERED: HYDROCHLOROTHIAZIDE 12.5 MG CAPSULE. PO SCH (09:00)
[2016-07-15] MEDS ORDERED: DILTIAZEM HCL 240 MG CAP.ER.24H PO SCH (09:00)
[2016-07-15] MEDS ORDERED: methylPREDNISolone SOD SUCC PF 125 MG/2 ML VIAL. IV SCH (09:00)
[2016-07-15 09:02] LABS: FREE T4 0.76 ng/dL (0.76-1.46)
--- NOTE | 2016-07-15 10:23 | EKG ---
[facility] [address] [place] [address] Test Date: 2016-07-15 Test Time: 10:18:02 Pat Name: BRONSON TAI Department: Room: 107 1 Gender: M Guest Relation Officer: SERAFIN : 1940 Requested By: JOHN PAUL BALDWIN Order Number: [id number] Reading MD: New Lawson Measurements Intervals [place] Rate: 83 P: 34 OK: 170 QRS: -24 QRSD: 90 T: 50 QT: 362 QTc: 426 Interpretive Statements SINUS RHYTHM ATRIAL PREMATURE COMPLEX(ES) LEFTWARD AXIS R-S TRANSITION ZONE IN V LEADS DISPLACED TO THE RIGHT CONSIDER LEFT VENTRICULAR HYPERTROPHY ST ABNORMALITY, POSSIBLE LATERAL SUBENDOCARDIAL INJURY ABNORMAL ECG Electronically Signed On 07-26-2016 16:15:53 CDT by New Lawson
--- NOTE | 2016-07-15 10:33 | PDOC ---
PULMONARY PROGRESS NOTES Subjective self extubated 07/14 did well until this am, collapsed when walking with PT mild SOA EKG changes Vitals Vital Signs Date Time Temp Pulse Resp B/P Pulse Ox O2 Delivery O2 Flow Rate FiO2 07/15/16 09:00 57 22 157/86 95 Nasal Cannula 3.0 07/15/16 08:00 98.6 98.6 General: Lethargic Lungs: Other (decrease bs) Cardiovascular: S1, S2 Abdomen: Soft, Non-tender Extremities: Other (trace edema) Labs Laboratory Tests Test 07/13/16 11:05 07/13/16 14:13 07/13/16 16:48 07/13/16 20:47 Glucose (Fingerstick) 351mg/dL (70-99) 333mg/dL (70-99) 273mg/dL (70-99) 189mg/dL (70-99) Test 07/14/16 05:20 07/14/16 08:00 07/14/16 08:32 07/14/16 09:55 Sodium Level 136mmol/L (136-145) Potassium Level 6.1mmol/L (3.5-5.1) Chloride Level 103mmol/L (98-107) Carbon Dioxide Level 26mmol/L (21-32) Anion Gap 7 (6-14) Blood Urea Nitrogen 43mg/dL (8-26) Creatinine 1.5mg/dL (0.7-1.3) Estimated GFR (Cockcroft-Gault) 55.5 Glucose Level 282mg/dL (70-99) Calcium Level 8.8mg/dL (8.5-10.1) Phosphorus Level 6.7mg/dL (2.6-4.7) Magnesium Level 2.3mg/dL (1.8-2.4) Lactate Dehydrogenase 228U/L (85-227) Lipase 74U/L (73-393) Thyroid Stimulating Hormone (TSH) 0.161uIU/mL (0.358-3.74) O2 Saturation 95% (92-99) Arterial Blood pH 7.29 (7.35-7.45) Arterial Blood pCO2 at Patient Temp 52mmHg (35-46) Arterial Blood pO2 at Patient Temp 87mmHg (65-108) Arterial Blood HCO3 24mmol/L (21-28) Arterial Blood Base Excess -3mmol/L (-3-3) FiO2 30 Glucose (Fingerstick) 271mg/dL (70-99) 256mg/dL (70-99) Test 07/14/16 11:12 07/14/16 12:40 07/14/16 13:00 07/14/16 13:02 Glucose (Fingerstick) 232mg/dL (70-99) 166mg/dL (70-99) Potassium Level 5.4mmol/L (3.5-5.1) Uric Acid 3.9mg/dL (3.5-7.2) Creatine Kinase 67U/L (39-308) Urine Collection Type Unknown Urine Color Yellow Urine Clarity Cloudy Urine pH 5.0 Urine Specific [place] 1.020 Urine Protein Negativemg/dL (NEG-TRACE) Urine Glucose (UA) Negativemg/dL (NEG) Urine Ketones (Stick) Negativemg/dL (NEG) Urine Blood Negative (NEG) Urine Nitrite Negative (NEG) Urine Bilirubin Negative (NEG) Urine Urobilinogen Dipstick 0.2mg/dL (0.2 mg/dL) Urine Leukocyte Esterase Small (NEG) Urine RBC Occ/HPF (0-2) Urine WBC 5-10/HPF (0-4) Urine Bacteria Few/HPF (0-FEW) Urine Hyaline Casts Few/HPF Urine Mucus Mod/LPF Urine Yeast Present/HPF Urine Random Sodium <20mmol/L (Not Estab.) Test 07/14/16 14:06 07/14/16 15:14 07/14/16 16:05 07/14/16 16:19 Glucose (Fingerstick) 124mg/dL (70-99) 89mg/dL (70-99) 84mg/dL (70-99) O2 Saturation 92% (92-99) Arterial Blood pH 7.31 (7.35-7.45) Arterial Blood pCO2 at Patient Temp 49mmHg (35-46) Arterial Blood pO2 at Patient Temp 67mmHg (65-108) Arterial Blood HCO3 24mmol/L (21-28) Arterial Blood Base Excess -2mmol/L (-3-3) FiO2 3 lpm nc Test 07/14/16 17:39 07/14/16 18:47 07/14/16 19:59 07/14/16 21:03 Glucose (Fingerstick) 82mg/dL (70-99) 90mg/dL (70-99) 82mg/dL (70-99) 93mg/dL (70-99) Test 07/14/16 22:18 07/14/16 23:28 07/15/16 00:32 07/15/16 01:33 Glucose (Fingerstick) 87mg/dL (70-99) 137mg/dL (70-99) 168mg/dL (70-99) 189mg/dL (70-99) Test 07/15/16 02:30 07/15/16 03:32 07/15/16 04:36 07/15/16 05:40 Glucose (Fingerstick) 176mg/dL (70-99) 146mg/dL (70-99) 120mg/dL (70-99) 134mg/dL (70-99) Test 07/15/16 05:45 07/15/16 06:32 07/15/16 07:40 07/15/16 08:45 White Blood Count 10.9x10^3/uL (4.0-11.0) Red Blood Count 3.46x10^6/uL (4.30-5.70) Hemoglobin 9.6g/dL (13.0-17.5) Hematocrit 29.7% (39.0-53.0) Mean Corpuscular Volume 86fL (79-100) Mean Corpuscular Hemoglobin 28pg (25-35) Mean Corpuscular Hemoglobin Concent 32g/dL (31-37) Red Cell Distribution Width 14.3% (11.5-14.5) Platelet Count 428x10^3/uL (140-400) Neutrophils (%) (Auto) 86% (31-73) Lymphocytes (%) (Auto) 5% (24-48) Monocytes (%) (Auto) 8% (0-9) Eosinophils (%) (Auto) 0% (0-3) Basophils (%) (Auto) 1% (0-3) Neutrophils # (Auto) 9.4x10^3uL (1.8-7.7) Lymphocytes # (Auto) 0.6x10^3/uL (1.0-4.8) Monocytes # (Auto) 0.9x10^3/uL (0.0-1.1) Eosinophils # (Auto) 0.0x10^3/uL (0.0-0.7) Basophils # (Auto) 0.1x10^3/uL (0.0-0.2) Segmented Neutrophils % 79% (35-66) Band Neutrophils % 5% (0-9) Lymphocytes % 9% (24-48) Monocytes % 7% (0-10) Platelet Estimate Increased (ADEQUATE) Sodium Level 141mmol/L (136-145) Potassium Level 5.2mmol/L (3.5-5.1) Chloride Level 106mmol/L (98-107) Carbon Dioxide Level 25mmol/L (21-32) Anion Gap 10 (6-14) Blood Urea Nitrogen 40mg/dL (8-26) Creatinine 1.1mg/dL (0.7-1.3) Estimated GFR (Cockcroft-Gault) 79.4 BUN/Creatinine Ratio 36 (6-20) Glucose Level 144mg/dL (70-99) Calcium Level 9.2mg/dL (8.5-10.1) Phosphorus Level 4.2mg/dL (2.6-4.7) Magnesium Level 2.5mg/dL (1.8-2.4) Total Bilirubin 0.2mg/dL (0.2-1.0) Aspartate Amino Transf (AST/SGOT) 16U/L (15-37) Alanine Aminotransferase (ALT/SGPT) 10U/L (16-63) Alkaline Phosphatase 69U/L (46-116) Total Protein 7.2g/dL (6.4-8.2) Albumin 2.1g/dL (3.4-5.0) Albumin/Globulin Ratio 0.4 (1.0-1.7) Triglycerides Level 135mg/dL (0-150) Free Thyroxine 0.76ng/dL (0.76-1.46) Free Triiodothyronine (T3) pg/mL 1.32pg/mL (2.18-3.98) Glucose (Fingerstick) 142mg/dL (70-99) 168mg/dL (70-99) 149mg/dL (70-99) Laboratory Tests Test 07/14/16 11:12 07/14/16 12:40 07/14/16 13:00 07/14/16 13:02 Glucose (Fingerstick) 232mg/dL (70-99) 166mg/dL (70-99) Potassium Level 5.4mmol/L (3.5-5.1) Uric Acid 3.9mg/dL (3.5-7.2) Creatine Kinase 67U/L (39-308) Urine Collection Type Unknown Urine Color Yellow Urine Clarity Cloudy Urine pH 5.0 Urine Specific [place] 1.020 Urine Protein Negativemg/dL (NEG-TRACE) Urine Glucose (UA) Negativemg/dL (NEG) Urine Ketones (Stick) Negativemg/dL (NEG) Urine Blood Negative (NEG) Urine Nitrite Negative (NEG) Urine Bilirubin Negative (NEG) Urine Urobilinogen Dipstick 0.2mg/dL (0.2 mg/dL) Urine Leukocyte Esterase Small (NEG) Urine RBC Occ/HPF (0-2) Urine WBC 5-10/HPF (0-4) Urine Bacteria Few/HPF (0-FEW) Urine Hyaline Casts Few/HPF Urine Mucus Mod/LPF Urine Yeast Present/HPF Urine Random Sodium <20mmol/L (Not Estab.) Test 07/14/16 14:06 07/14/16 15:14 07/14/16 16:05 07/14/16 16:19 Glucose (Fingerstick) 124mg/dL (70-99) 89mg/dL (70-99) 84mg/dL (70-99) O2 Saturation 92% (92-99) Arterial Blood pH 7.31 (7.35-7.45) Arterial Blood pCO2 at Patient Temp 49mmHg (35-46) Arterial Blood pO2 at Patient Temp 67mmHg (65-108) Arterial Blood HCO3 24mmol/L (21-28) Arterial Blood Base Excess -2mmol/L (-3-3) FiO2 3 lpm nc Test 07/14/16 17:39 07/14/16 18:47 07/14/16 19:59 07/14/16 21:03 Glucose (Fingerstick) 82mg/dL (70-99) 90mg/dL (70-99) 82mg/dL (70-99) 93mg/dL (70-99) Test 07/14/16 22:18 07/14/16 23:28 07/15/16 00:32 07/15/16 01:33 Glucose (Fingerstick) 87mg/dL (70-99) 137mg/dL (70-99) 168mg/dL (70-99) 189mg/dL (70-99) Test 07/15/16 02:30 07/15/16 03:32 07/15/16 04:36 07/15/16 05:40 Glucose (Fingerstick) 176mg/dL (70-99) 146mg/dL (70-99) 120mg/dL (70-99) 134mg/dL (70-99) Test 07/15/16 05:45 07/15/16 06:32 07/15/16 07:40 07/15/16 08:45 White Blood Count 10.9x10^3/uL (4.0-11.0) Red Blood Count 3.46x10^6/uL (4.30-5.70) Hemoglobin 9.6g/dL (13.0-17.5) Hematocrit 29.7% (39.0-53.0) Mean Corpuscular Volume 86fL (79-100) Mean Corpuscular Hemoglobin 28pg (25-35) Mean Corpuscular Hemoglobin Concent 32g/dL (31-37) Red Cell Distribution Width 14.3% (11.5-14.5) Platelet Count 428x10^3/uL (140-400) Neutrophils (%) (Auto) 86% (31-73) Lymphocytes (%) (Auto) 5% (24-48) Monocytes (%) (Auto) 8% (0-9) Eosinophils (%) (Auto) 0% (0-3) Basophils (%) (Auto) 1% (0-3) Neutrophils # (Auto) 9.4x10^3uL (1.8-7.7) Lymphocytes # (Auto) 0.6x10^3/uL (1.0-4.8) Monocytes # (Auto) 0.9x10^3/uL (0.0-1.1) Eosinophils # (Auto) 0.0x10^3/uL (0.0-0.7) Basophils # (Auto) 0.1x10^3/uL (0.0-0.2) Segmented Neutrophils % 79% (35-66) Band Neutrophils % 5% (0-9) Lymphocytes % 9% (24-48) Monocytes % 7% (0-10) Platelet Estimate Increased (ADEQUATE) Sodium Level 141mmol/L (136-145) Potassium Level 5.2mmol/L (3.5-5.1) Chloride Level 106mmol/L (98-107) Carbon Dioxide Level 25mmol/L (21-32) Anion Gap 10 (6-14) Blood Urea Nitrogen 40mg/dL (8-26) Creatinine 1.1mg/dL (0.7-1.3) Estimated GFR (Cockcroft-Gault) 79.4 BUN/Creatinine Ratio 36 (6-20) Glucose Level 144mg/dL (70-99) Calcium Level 9.2mg/dL (8.5-10.1) Phosphorus Level 4.2mg/dL (2.6-4.7) Magnesium Level 2.5mg/dL (1.8-2.4) Total Bilirubin 0.2mg/dL (0.2-1.0) Aspartate Amino Transf (AST/SGOT) 16U/L (15-37) Alanine Aminotransferase (ALT/SGPT) 10U/L (16-63) Alkaline Phosphatase 69U/L (46-116) Total Protein 7.2g/dL (6.4-8.2) Albumin 2.1g/dL (3.4-5.0) Albumin/Globulin Ratio 0.4 (1.0-1.7) Triglycerides Level 135mg/dL (0-150) Free Thyroxine 0.76ng/dL (0.76-1.46) Free Triiodothyronine (T3) pg/mL 1.32pg/mL (2.18-3.98) Glucose (Fingerstick) 142mg/dL (70-99) 168mg/dL (70-99) 149mg/dL (70-99) Medications Active Scripts Medications Dose Route/Sig Days Date Category Advair 100-50 Diskus (Fluticasone/Salmeterol) 1 Each Disk.w.dev 1 Puff IH BID 06/21/16 Reported Spiriva Respimat (Tiotropium Remer) 4 Gm Mist.inhal 2.5 Gm IH DAILY 06/21/16 Reported Symbicort 160-4.5 Mcg Inhaler (Budesonide/Formoterol Fumarate) 10.2 Gm Hfa.aer.ad 2 Puff IH BID 06/21/16 Reported Atorvastatin Calcium 20 Mg Tablet 20 Mg PO HS 06/21/16 Reported Lisinopril-Hctz 10-12.5 Mg Tab (Lisinopril/Hydrochlorothiazide) 1 Each Tablet 1 Tab PO DAILY 06/21/16 Reported Isosorbide Mononitrate Er (Isosorbide Mononitrate) 120 Mg Tab.er.24h 120 Mg PO DAILY 06/21/16 Reported Levemir Flextouch (Insulin Detemir) 100 Unit/1 Ml Insuln.pen 20 Units SQ QHS 30 11/24/15 Rx Novolog Flexpen (Insulin Aspart) 100 Unit/1 Ml Insuln.pen 10 Units SQ TIDAC 30 11/24/15 Rx Novolin N (Nph, Human Insulin Isophane) 100 Unit/1 Ml Vial 0 SQ 11/18/15 Reported Promethazine-Codeine Syrup (Promethazine Hcl/Codeine) 118 Ml Syrup 5 Ml PO Q4-6HRS 11/18/15 Reported Diltiazem 24HR Cd (Diltiazem Hcl) 240 Mg Cap.er.24h 240 Mg PO DAILY 11/18/15 Reported NITROGLYCERIN SubLingual (Nitroglycerin) 0.4 Mg Tab.subl 0.4 Mg SL PRN Q5MIN PRN 11/18/15 Reported Atorvastatin Calcium 40 Mg Tablet 40 Mg PO HS 11/18/15 Reported Impression . 1. Acute respiratory failure secondary to angioedema, self extubated 07/14, did well , collapsed today when walking 2. Lisinopril induced angioedema. 3. Chronic obstructive pulmonary disease. 4. Hypertension. 5. Coronary artery disease. 6. EKG changes with st elevation in AVR/ st depresion in lateral leads Plan . 1. Stat ABG/ CXR 2. Continue steroids. 3. DVT and GI prophylaxis. 4. Cardiology consult/ d/w Dr Lehman/ prosthetics lab technician now 5. will place him on BIPAP 6. May need bicarb/ had relative metabolic acidosis 07/14 cct 25 min IVANA COX MD Jul 15, 2016 10:33
[2016-07-15] MEDS ORDERED: SODIUM BICARB ADULT 8.4% 50 MEQ/50 ML DISP.SYRIN. ONE ×2 (10:34→11:00)
[2016-07-15] MEDS ORDERED: DOPAMINE 400MG/250ML PREMIX 250 ML IV ONE (10:37)
[2016-07-15] MEDS ORDERED: MIDAZOLAM HCL/PF 5 MG/5 ML VIAL ONE ×3 (10:41→11:00)
[2016-07-15] MEDS ORDERED: LIDOCAINE 2% 20 ML VIAL. ONE (10:45)
[2016-07-15] MEDS ORDERED: HEPARIN for ARTERIAL LINE 1,500 ML ONE (10:45)
[2016-07-15] MEDS ORDERED: SODIUM BICARB ADULT 8.4% 50 MEQ/50 ML DISP.SYRIN. IV ONE ×2 (10:45→16:30)
[2016-07-15] MEDS ORDERED: IOHEXOL 300 MG/ML 100ML VIAL. ONE (10:45)
[2016-07-15] MEDS ORDERED: IV NORMAL SALINE 1000ML BAG 1,000 ML IV ONE (11:00)
[2016-07-15] MEDS ORDERED: FENTANYL PF 100 MCG/2 ML VIAL. ONE ×2 (11:00→11:02)
[2016-07-15] MEDS ORDERED: VECURONIUM BOLUS 10 MG VIAL. IV ONE ×2 (11:00→11:03)
[2016-07-15] MEDS ORDERED: DOPAMINE 400MG/250ML PREMIX BAG. IV ONE (11:00)
[2016-07-15] MEDS ORDERED: MIDAZOLAM PREMIX 100 ML IV ONE (11:03)
--- NOTE | 2016-07-15 11:24 | RAD ---
Indication shortness of breath. Post CODE BLUE. Intubated. Single view chest was obtained and is compared to a study 2 days previously. The patient is rotated on the film. Some slight blunting of the right costophrenic angle is noted, similar. Gross congestive heart failure is not seen. A focal infiltrate or significant change relative to the previous exam is not seen. A right IJ catheter is noted. Endotracheal tube has its tip well above the herson. IMPRESSION: Endotracheal tube well above the herson. No focal infiltrate seen in the chest. No significant change
--- NOTE | 2016-07-15 11:24 | OP ---
DATE OF SURGERY: PROCEDURE: Intubation. The patient lost his pulse and code blue was called. He had CPR. I had initially attempted endotracheal intubation, which was unsuccessful. However, with the help of a glidoscope and a 6.5 endotracheal tube, the patient was successfully intubated. There was appropriate color change on the CO2 detector and bilateral breath sounds were heard. Stat chest x-ray has been ordered. IVANA COX MD DR: KARLOS/taylor JOB#: [id number] / [id number] [address]
--- NOTE | 2016-07-15 11:42 | PN ---
DATE: 07/15/2016 ADDENDUM: ATTENDING PHYSICIAN: Chaka Tan M.D. The patient lost his pulse while in the ICU. CPR was started. Two rounds of CPR done and the rhythm was PEA. One amp of epinephrine was given. There was return of circulation. The patient's pulses came back. Rhythm was sinus tachycardia. The patient was intubated by myself. The patient will be going to the cardiac slab conditioner supervisor soon once he is stabilized. Discussed with cardiology Dr. Lehman. If cath is negative, will order CTAchest to r/o PE. Critical care time of 30 minutes. The patient's family will be notified as well. IVANA COX MD DR: KARLOS/taylor JOB#: [id number] / [id number]
[2016-07-15 11:51] LABS: HCO3 ABG 18 mmol/L (21-28); PO2 ABG > 503 mmHg (65-108); SAT O2 ABG 100 % (92-99)
[2016-07-15] MEDS ORDERED: LIDOCAINE 2% 20 ML VIAL. IJ ONE (12:00)
[2016-07-15] MEDS ORDERED: IOHEXOL 300 MG/ML 100ML VIAL. IART ONE (12:00)
--- NOTE | 2016-07-15 12:34 | PDOC ---
SURGICAL PROGRESS NOTE Subjective coded, reintubated, cath clean, suspect from resp distress Vital Signs Vital Signs Date Time Temp Pulse Resp B/P Pulse Ox O2 Delivery O2 Flow Rate FiO2 07/15/16 11:52 122 24 138/79 100 Ventilator 07/15/16 09:00 3.0 07/15/16 08:00 98.6 98.6 I&O Intake and Output 07/15/16 07:00 Intake Total 1582 ml Output Total 1410 ml Balance 172 ml IV Total 1562 ml Other 20 ml Output Urine Total 1410 ml General: No acute distress Lungs: Other ([facility] vent) Labs Laboratory Tests Test 07/13/16 14:13 07/13/16 16:48 07/13/16 20:47 07/14/16 05:20 Glucose (Fingerstick) 333mg/dL (70-99) 273mg/dL (70-99) 189mg/dL (70-99) Sodium Level 136mmol/L (136-145) Potassium Level 6.1mmol/L (3.5-5.1) Chloride Level 103mmol/L (98-107) Carbon Dioxide Level 26mmol/L (21-32) Anion Gap 7 (6-14) Blood Urea Nitrogen 43mg/dL (8-26) Creatinine 1.5mg/dL (0.7-1.3) Estimated GFR (Cockcroft-Gault) 55.5 Glucose Level 282mg/dL (70-99) Calcium Level 8.8mg/dL (8.5-10.1) Phosphorus Level 6.7mg/dL (2.6-4.7) Magnesium Level 2.3mg/dL (1.8-2.4) Lactate Dehydrogenase 228U/L (85-227) Lipase 74U/L (73-393) Thyroid Stimulating Hormone (TSH) 0.161uIU/mL (0.358-3.74) Test 07/14/16 08:00 07/14/16 08:32 07/14/16 09:55 07/14/16 11:12 O2 Saturation 95% (92-99) Arterial Blood pH 7.29 (7.35-7.45) Arterial Blood pCO2 at Patient Temp 52mmHg (35-46) Arterial Blood pO2 at Patient Temp 87mmHg (65-108) Arterial Blood HCO3 24mmol/L (21-28) Arterial Blood Base Excess -3mmol/L (-3-3) FiO2 30 Glucose (Fingerstick) 271mg/dL (70-99) 256mg/dL (70-99) 232mg/dL (70-99) Test 07/14/16 12:40 07/14/16 13:00 07/14/16 13:02 07/14/16 14:06 Potassium Level 5.4mmol/L (3.5-5.1) Uric Acid 3.9mg/dL (3.5-7.2) Creatine Kinase 67U/L (39-308) Urine Collection Type Unknown Urine Color Yellow Urine Clarity Cloudy Urine pH 5.0 Urine Specific [place] 1.020 Urine Protein Negativemg/dL (NEG-TRACE) Urine Glucose (UA) Negativemg/dL (NEG) Urine Ketones (Stick) Negativemg/dL (NEG) Urine Blood Negative (NEG) Urine Nitrite Negative (NEG) Urine Bilirubin Negative (NEG) Urine Urobilinogen Dipstick 0.2mg/dL (0.2 mg/dL) Urine Leukocyte Esterase Small (NEG) Urine RBC Occ/HPF (0-2) Urine WBC 5-10/HPF (0-4) Urine Bacteria Few/HPF (0-FEW) Urine Hyaline Casts Few/HPF Urine Mucus Mod/LPF Urine Yeast Present/HPF Urine Random Sodium <20mmol/L (Not Estab.) Glucose (Fingerstick) 166mg/dL (70-99) 124mg/dL (70-99) Test 07/14/16 15:14 07/14/16 16:05 07/14/16 16:19 07/14/16 17:39 Glucose (Fingerstick) 89mg/dL (70-99) 84mg/dL (70-99) 82mg/dL (70-99) O2 Saturation 92% (92-99) Arterial Blood pH 7.31 (7.35-7.45) Arterial Blood pCO2 at Patient Temp 49mmHg (35-46) Arterial Blood pO2 at Patient Temp 67mmHg (65-108) Arterial Blood HCO3 24mmol/L (21-28) Arterial Blood Base Excess -2mmol/L (-3-3) FiO2 3 lpm nc Test 07/14/16 18:47 07/14/16 19:59 07/14/16 21:03 07/14/16 22:18 Glucose (Fingerstick) 90mg/dL (70-99) 82mg/dL (70-99) 93mg/dL (70-99) 87mg/dL (70-99) Test 07/14/16 23:28 07/15/16 00:32 07/15/16 01:33 07/15/16 02:30 Glucose (Fingerstick) 137mg/dL (70-99) 168mg/dL (70-99) 189mg/dL (70-99) 176mg/dL (70-99) Test 07/15/16 03:32 07/15/16 04:36 07/15/16 05:40 07/15/16 05:45 Glucose (Fingerstick) 146mg/dL (70-99) 120mg/dL (70-99) 134mg/dL (70-99) White Blood Count 10.9x10^3/uL (4.0-11.0) Red Blood Count 3.46x10^6/uL (4.30-5.70) Hemoglobin 9.6g/dL (13.0-17.5) Hematocrit 29.7% (39.0-53.0) Mean Corpuscular Volume 86fL (79-100) Mean Corpuscular Hemoglobin 28pg (25-35) Mean Corpuscular Hemoglobin Concent 32g/dL (31-37) Red Cell Distribution Width 14.3% (11.5-14.5) Platelet Count 428x10^3/uL (140-400) Neutrophils (%) (Auto) 86% (31-73) Lymphocytes (%) (Auto) 5% (24-48) Monocytes (%) (Auto) 8% (0-9) Eosinophils (%) (Auto) 0% (0-3) Basophils (%) (Auto) 1% (0-3) Neutrophils # (Auto) 9.4x10^3uL (1.8-7.7) Lymphocytes # (Auto) 0.6x10^3/uL (1.0-4.8) Monocytes # (Auto) 0.9x10^3/uL (0.0-1.1) Eosinophils # (Auto) 0.0x10^3/uL (0.0-0.7) Basophils # (Auto) 0.1x10^3/uL (0.0-0.2) Segmented Neutrophils % 79% (35-66) Band Neutrophils % 5% (0-9) Lymphocytes % 9% (24-48) Monocytes % 7% (0-10) Platelet Estimate Increased (ADEQUATE) Sodium Level 141mmol/L (136-145) Potassium Level 5.2mmol/L (3.5-5.1) Chloride Level 106mmol/L (98-107) Carbon Dioxide Level 25mmol/L (21-32) Anion Gap 10 (6-14) Blood Urea Nitrogen 40mg/dL (8-26) Creatinine 1.1mg/dL (0.7-1.3) Estimated GFR (Cockcroft-Gault) 79.4 BUN/Creatinine Ratio 36 (6-20) Glucose Level 144mg/dL (70-99) Calcium Level 9.2mg/dL (8.5-10.1) Phosphorus Level 4.2mg/dL (2.6-4.7) Magnesium Level 2.5mg/dL (1.8-2.4) Total Bilirubin 0.2mg/dL (0.2-1.0) Aspartate Amino Transf (AST/SGOT) 16U/L (15-37) Alanine Aminotransferase (ALT/SGPT) 10U/L (16-63) Alkaline Phosphatase 69U/L (46-116) Total Protein 7.2g/dL (6.4-8.2) Albumin 2.1g/dL (3.4-5.0) Albumin/Globulin Ratio 0.4 (1.0-1.7) Triglycerides Level 135mg/dL (0-150) Free Thyroxine 0.76ng/dL (0.76-1.46) Free Triiodothyronine (T3) pg/mL 1.32pg/mL (2.18-3.98) Test 07/15/16 06:32 07/15/16 07:40 07/15/16 08:45 07/15/16 10:16 Glucose (Fingerstick) 142mg/dL (70-99) 168mg/dL (70-99) 149mg/dL (70-99) 146mg/dL (70-99) Test 07/15/16 10:30 Troponin I Quantitative < 0.017ng/mL (0.000-0.055) Laboratory Tests Test 07/14/16 12:40 07/14/16 13:00 07/14/16 13:02 07/14/16 14:06 Potassium Level 5.4mmol/L (3.5-5.1) Uric Acid 3.9mg/dL (3.5-7.2) Creatine Kinase 67U/L (39-308) Urine Collection Type Unknown Urine Color Yellow Urine Clarity Cloudy Urine pH 5.0 Urine Specific [place] 1.020 Urine Protein Negativemg/dL (NEG-TRACE) Urine Glucose (UA) Negativemg/dL (NEG) Urine Ketones (Stick) Negativemg/dL (NEG) Urine Blood Negative (NEG) Urine Nitrite Negative (NEG) Urine Bilirubin Negative (NEG) Urine Urobilinogen Dipstick 0.2mg/dL (0.2 mg/dL) Urine Leukocyte Esterase Small (NEG) Urine RBC Occ/HPF (0-2) Urine WBC 5-10/HPF (0-4) Urine Bacteria Few/HPF (0-FEW) Urine Hyaline Casts Few/HPF Urine Mucus Mod/LPF Urine Yeast Present/HPF Urine Random Sodium <20mmol/L (Not Estab.) Glucose (Fingerstick) 166mg/dL (70-99) 124mg/dL (70-99) Test 07/14/16 15:14 07/14/16 16:05 07/14/16 16:19 07/14/16 17:39 Glucose (Fingerstick) 89mg/dL (70-99) 84mg/dL (70-99) 82mg/dL (70-99) O2 Saturation 92% (92-99) Arterial Blood pH 7.31 (7.35-7.45) Arterial Blood pCO2 at Patient Temp 49mmHg (35-46) Arterial Blood pO2 at Patient Temp 67mmHg (65-108) Arterial Blood HCO3 24mmol/L (21-28) Arterial Blood Base Excess -2mmol/L (-3-3) FiO2 3 lpm nc Test 07/14/16 18:47 07/14/16 19:59 07/14/16 21:03 07/14/16 22:18 Glucose (Fingerstick) 90mg/dL (70-99) 82mg/dL (70-99) 93mg/dL (70-99) 87mg/dL (70-99) Test 07/14/16 23:28 07/15/16 00:32 07/15/16 01:33 07/15/16 02:30 Glucose (Fingerstick) 137mg/dL (70-99) 168mg/dL (70-99) 189mg/dL (70-99) 176mg/dL (70-99) Test 07/15/16 03:32 07/15/16 04:36 07/15/16 05:40 07/15/16 05:45 Glucose (Fingerstick) 146mg/dL (70-99) 120mg/dL (70-99) 134mg/dL (70-99) White Blood Count 10.9x10^3/uL (4.0-11.0) Red Blood Count 3.46x10^6/uL (4.30-5.70) Hemoglobin 9.6g/dL (13.0-17.5) Hematocrit 29.7% (39.0-53.0) Mean Corpuscular Volume 86fL (79-100) Mean Corpuscular Hemoglobin 28pg (25-35) Mean Corpuscular Hemoglobin Concent 32g/dL (31-37) Red Cell Distribution Width 14.3% (11.5-14.5) Platelet Count 428x10^3/uL (140-400) Neutrophils (%) (Auto) 86% (31-73) Lymphocytes (%) (Auto) 5% (24-48) Monocytes (%) (Auto) 8% (0-9) Eosinophils (%) (Auto) 0% (0-3) Basophils (%) (Auto) 1% (0-3) Neutrophils # (Auto) 9.4x10^3uL (1.8-7.7) Lymphocytes # (Auto) 0.6x10^3/uL (1.0-4.8) Monocytes # (Auto) 0.9x10^3/uL (0.0-1.1) Eosinophils # (Auto) 0.0x10^3/uL (0.0-0.7) Basophils # (Auto) 0.1x10^3/uL (0.0-0.2) Segmented Neutrophils % 79% (35-66) Band Neutrophils % 5% (0-9) Lymphocytes % 9% (24-48) Monocytes % 7% (0-10) Platelet Estimate Increased (ADEQUATE) Sodium Level 141mmol/L (136-145) Potassium Level 5.2mmol/L (3.5-5.1) Chloride Level 106mmol/L (98-107) Carbon Dioxide Level 25mmol/L (21-32) Anion Gap 10 (6-14) Blood Urea Nitrogen 40mg/dL (8-26) Creatinine 1.1mg/dL (0.7-1.3) Estimated GFR (Cockcroft-Gault) 79.4 BUN/Creatinine Ratio 36 (6-20) Glucose Level 144mg/dL (70-99) Calcium Level 9.2mg/dL (8.5-10.1) Phosphorus Level 4.2mg/dL (2.6-4.7) Magnesium Level 2.5mg/dL (1.8-2.4) Total Bilirubin 0.2mg/dL (0.2-1.0) Aspartate Amino Transf (AST/SGOT) 16U/L (15-37) Alanine Aminotransferase (ALT/SGPT) 10U/L (16-63) Alkaline Phosphatase 69U/L (46-116) Total Protein 7.2g/dL (6.4-8.2) Albumin 2.1g/dL (3.4-5.0) Albumin/Globulin Ratio 0.4 (1.0-1.7) Triglycerides Level 135mg/dL (0-150) Free Thyroxine 0.76ng/dL (0.76-1.46) Free Triiodothyronine (T3) pg/mL 1.32pg/mL (2.18-3.98) Test 07/15/16 06:32 07/15/16 07:40 07/15/16 08:45 07/15/16 10:16 Glucose (Fingerstick) 142mg/dL (70-99) 168mg/dL (70-99) 149mg/dL (70-99) 146mg/dL (70-99) Test 07/15/16 10:30 Troponin I Quantitative < 0.017ng/mL (0.000-0.055) Problem List Problems Medical Problems: (1) COPD exacerbation Status: Acute (2) Hyperglycemia Status: Acute Assessment/Plan angioedema, s/p code reintubated available if trach needed Problems: JESSICA RINCON [employer] H[employer]ORY Jul 15, 2016 12:34
[2016-07-15] MEDS: TPN PER PHARMACY MC PRN (12:47)
--- NOTE | 2016-07-15 12:54 | RAD ---
Portable chest, 07/15/2016, 12:32 PM: History: Check ET tube placement Comparison is made to a study from earlier in the day at 11:12 AM. The tip of the ET tube lies 8 cm above the herson. A right jugular central venous catheter extends to the level of the atriocaval junction. The heart appears to be within normal limits in size. The pulmonary vascularity is normal. There is unchanged blunting of the right lateral costophrenic angle, probably due to scarring. There are minimal underlying pulmonary opacities. No new abnormality is seen. IMPRESSION: No significant change since earlier in the day.
[2016-07-15] MEDS ORDERED: CONTRAST GIVEN MC PRN (13:15)
[2016-07-15] MEDS ORDERED: IOHEXOL 300 MG/ML 75 ML VIAL IV ONE (13:15)
--- NOTE | 2016-07-15 14:01 | CARD ---
APPROVED REPORT Procedure(s) performed: Left Heart Catheterization+ Coronary angiography HISTORY The patient is a 75 year-old male with a history of : chronic lung disease, tobacco history() : The p atient is a current smoker, hypertension, dyslipidemia. INDICATION The indication(s) include : unstable angina , Patient is a 75-year-old male with history of COPD who had a cardiac arrest and chest pain with nonspecific ST-T wave changes. In this setting he was vicky t emergently to the catheterization laboratory to rule out obstructive coronary artery disease.. CASE TECHNIQUE During this case, Fluoroscopy and low osmolar contrast were used for imaging. PROCEDURE NARRATIVE The right wrist was sterilely prepped and draped in the usual fashion. The right groin was infiltrat ed with 10 mL of 2% lidocaine for subcutaneous anesthesia. A 6F sheath was inserted into the right c ommon femoral artery without difficulty. Right and left coronary angiography was performed using JL4 and JR4 catheters. Left ventricular end diastolic pressure was obtained with a pigtail catheter and pullback was performed after left ventriculography. All catheter exchanges and advancements were pe rformed over a guidewire. At case completion the right femoral sheath was removed and hemostasis was achieved with an Angioseal product. No acute complications. HEMODYNAMICS: LVEDP 18 mm Hg No gradient on LV to aortic pullback. LEFT VENTRICULOGRAM: EF >70% Anterobasal: Normal. Anterolateral: Normal Apical: Normal Diaphragmatic: Normal Posterobasal: Normal CORONARY ANGIOGRAPHY: LM is a large caliber vessel with normal angiographic appearance. LAD is a large caliber vessel with mild luminal irregularities. D1 is a moderate caliber vessel with normal angiographic apeparance. LCx is a moderate caliber non-dominant vessel with mild luminal irregularities. OM1 is a moderate caliber vessel with normal angiographic appearance. RCA is a large caliber dominant vessel with normal angiographic appearance. RPDA and RPL are moderate caliber vessels with normal angiographic appearance. Conclusion No significant obstructive coronary disease. Normal LV systolic function. Recommendations Aggressive Medical Therapy
--- NOTE | 2016-07-15 14:18 | PDOC ---
Provider Note Provider Note Asked by Dr. Hill to evaluate the patient after he had a near syncopal event earlier today. EKG was non-specific and suggestive of STEMI. Patient reported CP. Taken emergently to quality assurance qa lab analyst after being coded and becoming hypotensive. Pls see cath report for full details but no evidence of CAD with excellent LV systolic function. Supportive care from cardiac standpoint. Will follow along peripherally. CLEO JUAREZ MD Jul 15, 2016 14:18
[2016-07-15] MEDS ORDERED: HEPARIN for IV BOLUS 10,000 UNIT/10 ML VIAL. IV PRN ×2 (14:30)
--- NOTE | 2016-07-15 14:31 | RAD ---
CTA of the chest compared to noncontrast CT scan of the chest dated 07/06/2015 for status post code. Technique: Contiguous axial CT images are obtained from the thoracic inlet to the base of diaphragm following demonstration of contrast in the pulmonary arterial phase. Sagittal and coronal MIPS are evaluated as well. Findings: Mild apical emphysematous changes are again noted. There is redemonstration of a hypoplastic upper lobar bronchus, with a short segment proximal stenosis. No extrinsic compression from adjacent mass. This is stable. Previously noted widespread airspace infiltrates are slightly less confluence, and now largely have a tree-in-bud appearance consistent with acute bronchiolitis. The distribution is somewhat worse however, with more disease seen in the lung bases. No suspicious lung masses or nodules are identified. Multiple acute pulmonary emboli are distributed throughout both lungs, most notable involving the right lower lobe. There is also emboli involving the right middle lobe as well as segmental branches of the right upper lobe, left lower lobe, lingula, and left upper lobe. The main and right and left pulmonary arteries are widely patent, with no evidence of pulmonary embolus. No wedge-shaped peripheral opacity to suggest pulmonary infarction. There is air throughout the esophagus which is nonspecific. There is right atrial and right ventricular enlargement, with straightening of the interventricular septum which may relate to increased pulmonary artery pressures. Visualized upper abdominal organs are somewhat limited by phase of arterial contrast, however no gross morphologic abnormalities are seen. Changes of antecedent granulomatous disease are present in the liver and spleen. Multifocal atherosclerosis is present as well. No suspicious osteoblastic or osteolytic bone lesions are identified. The endotracheal tube is appropriately positioned. Impression: 1. Widespread multifocal bilateral segmental pulmonary embolism, with nonocclusive lobar embolism involving the right lower and middle lobes. 2. Diffuse tree-in-bud opacification suggestive of acute bronchiolitis. Findings are less confluence than on the prior examination, but now involve the lower lobes. 3. Right heart enlargement with straightening of the interventricular septum possibly due to pulmonary hypertension. Correlate clinically and consider echocardiography if warranted. 4. Short segment high-grade stricture and/or focal obliteration of the right upper lobe bronchus. No adjacent mass or evidence of extrinsic compression. This is stable. 5. Other chronic changes as described. Findings were discussed with Dr. Hill immediately upon interpretation of the exam.
[2016-07-15] MEDS ORDERED: HEPARIN for IV BOLUS 10,000 UNIT/10 ML VIAL. IV ONE (14:45)
[2016-07-15] MEDS: CEFTRIAXONE SODIUM 1 GM in IV NORMAL SALINE 50ML 50 ML IV SCH (15:25)
[2016-07-15] MEDS: HEPARIN 25,000UTS/500ML PREMIX 500 ML IV PRN (15:29)
--- NOTE | 2016-07-15 15:38 | PDOC ---
Provider Note Provider Note Cath negative for sig CAD, pt re-intubated for PEA, CTA chest with diffuse bilateral PE start heparin protocol/ not a candidate for TPA due to cath today with arterial puncture IVANA COX MD Jul 15, 2016 15:37
--- NOTE | 2016-07-15 15:57 | RAD ---
Bilateral lower extremity venous ultrasound, 07/15/2016: History: Leg swelling, pulmonary emboli Duplex evaluation of the deep veins in both lower extremities was performed including grayscale, color-flow and spectral Doppler analysis. There is a prominent filling defect in right common femoral vein compatible with thrombus. There is some color flow in this vessel adjacent to the thrombus. The femoral vein in the thigh is also incompletely compressible and shows nonocclusive clot. There is thrombus in the greater saphenous vein at the saphenofemoral junction. The right popliteal vein is compressible and demonstrates internal flow. Patent posterior tibial veins are noted in the right calf. On the left the femoral and popliteal veins are patent. Blood within those vessels a slightly hyperechoic suggesting increased viscosity. Patent posterior tibial veins are visible. IMPRESSION: 1. Moderate nonocclusive thrombus in the right femoral and greater saphenous veins. 2. No duplex evidence of deep vein thrombosis in the left lower extremity. Note: The findings were called to the patient's nurse in the ICU at 3:53 PM on 07/15/2016.
[2016-07-15 16:09] LABS: PH ABG 6.93 (7.35-7.45)
[2016-07-15 16:10] LABS: FIO2 ABG 100; PCO2 ABG 88 mmHg (35-46)
[2016-07-15 16:18] LABS: KAPPA LAMBDA RATIO 0.69 (0.26-1.65)
[2016-07-15] MEDS ORDERED: ALTEPLASE 100 MG IV ONE (17:30)
--- NOTE | 2016-07-15 17:46 | PDOC ---
Provider Note Provider Note Notified by RN. Pt had another PEA arrest requiring brief CPR/ low dose pressor. / shock. I had discussed with Cardiology. At this point benefits of TPA outweighs the risk of bleeding from the groin side. Cardiology (Dr Lehman ) agrees. d/w RN, will proceed with 100mg TPA over 2 hrs . Hold heparin during TPA infusion and then re-start later. spoke with in detail. explained the critical illness. She agrees to proceed with TPA. Will place sand bag in the groin area.and watch Hb closely IVANA COX MD Jul 15, 2016 17:46
--- NOTE | 2016-07-15 20:20 | RAD ---
PROCEDURE KUB. HISTORY Dobhoff placement. TECHNIQUE KUB is submitted for review. COMPARISON Chest radiograph from 3 days ago. FINDINGS Endogastric tube projects over the stomach bubble. Image is centered at the diaphragm and bowel gas pattern is not well evaluated. Right costophrenic angle remains blunted. IMPRESSION Dobhoff feeding tube tip projects over the stomach. Electronically signed by: Sherman Capps MD (Jul 15, 2016 20:18:58)
[2016-07-15] MEDS: ATORVASTATIN CALCIUM 40 MG TABLET. PO SCH (20:27)
[2016-07-15] MEDS ORDERED: INSULIN DETEMIR 300 UNITS/3 ML INSULN.PEN. SQ SCH (21:00)
[2016-07-15] MEDS ORDERED: TOTAL PARENTERAL NUTRITION IV SCH ×7 (22:00)
[2016-07-15] MEDS ORDERED: AMINO ACIDS IV SCH ×7 (22:00)
[2016-07-15] MEDS ORDERED: DEXTROSE 70% IV SCH ×7 (22:00)
[2016-07-15] MEDS ORDERED: [UNRECOGNIZED DRUG - OTHER] IV SCH ×7 (22:00)
[2016-07-15] MEDS ORDERED: FENTANYL PF 100 MCG/2 ML VIAL. IV PRN (22:30)
[2016-07-15] MEDS ORDERED: SCOPOLAMINE 1.5MG PATCH. TD ONE (23:30)
[2016-07-16] VITALS (24 sets, daily range): BP systolic 81–176; BP diastolic 48–69
[2016-07-16] MEDS ORDERED: IV NORMAL SALINE 1000ML BAG 1,000 ML IV ONE (01:00)
[2016-07-16] MEDS ORDERED: MIDAZOLAM PREMIX 100 ML IV ONE (01:00)
[2016-07-16] MEDS: MIDAZOLAM PREMIX 100 ML IV PRN ×3 (02:38→22:03)
[2016-07-16] MEDS: FENTANYL PF 100 MCG/2 ML VIAL. IV PRN ×3 (02:39→06:43)
[2016-07-16 04:04] LABS: BASO # 0.1 x10^3/uL (0.0-0.2); BASO % 1 % (0-3); EOS % 0 % (0-3); HEMATOCRIT 26.5 % (39.0-53.0); HEMOGLOBIN 8.2 g/dL (13.0-17.5); LYMPH # 2.3 x10^3/uL (1.0-4.8); LYMPH % 19 % (24-48); MEAN CORPUSCULAR HEMOGLOBIN 27 pg (25-35); MEAN CORPUSCULAR HGB CONC 31 g/dL (31-37); MEAN CORPUSCULAR VOLUME 86 fL (79-100); MONO % 12 % (0-9); NEUT % 69 % (31-73); PLATELET COUNT 390 x10^3/uL (140-400); RED BLOOD COUNT 3.08 x10^6/uL (4.30-5.70); RED CELL DISTRIBUTION WIDTH 14.4 % (11.5-14.5)
[2016-07-16 04:20] LABS: ALBUMIN 1.6 g/dL (3.4-5.0); ALBUMIN/GLOBULIN RATIO 0.4 (1.0-1.7); GFR 39.8; PHOSPHORUS 6.9 mg/dL (2.6-4.7); POTASSIUM 5.8 mmol/L (3.5-5.1); TOTAL BILIRUBIN 0.3 mg/dL (0.2-1.0); TOTAL PROTEIN 5.4 g/dL (6.4-8.2)
[2016-07-16] MEDS ORDERED: INSULIN REGULAR VIAL 150 UNIT in 0.9 % SODIUM CHLORIDE 150ML 150 ML IV PRN (05:00)
[2016-07-16] MEDS: IPRATRPIUM/ALBUTEROL 0.5/2.5MG 3 ML NEBU. NEB SCH (07:47)
[2016-07-16] MEDS: FENTANYL STANDARD PCA 30 ML IV PRN ×2 (08:03→17:30)
[2016-07-16 08:04] LABS: HCO3 ABG 17 mmol/L (21-28); PO2 ABG 88 mmHg (65-108); SAT O2 ABG 93 % (92-99)
[2016-07-16 08:06] LABS: PCO2 ABG 45 mmHg (35-46)
[2016-07-16 08:25] LABS: PH ABG 7.19 (7.35-7.45)
--- NOTE | 2016-07-16 08:26 | PDOC ---
SUBJECTIVE ROS BASIM/ ^K now sedated an intubated after yesterdays episode of PEA Cardiac Arrest OBJECTIVE Vital Signs Vital Signs Date Time Temp Pulse Resp B/P Pulse Ox O2 Delivery O2 Flow Rate FiO2 07/16/16 08:03 97 3.0 07/16/16 07:50 Ventilator 07/16/16 07:00 129 26 81/52 07/16/16 04:00 98.0 98.0 I & 0 Intake and Output 07/16/16 07:00 Intake Total 1789 ml Output Total 1040 ml Balance 749 ml IV Total 1549 ml Other 240 ml Output Urine Total 1040 ml PHYSICAL EXAM Physical Exam General Appearance: Sedated and on the Vent In no Distress Eyes: Sclera Anicteric vs [place] Conjunctiva (? Normal for him? vs min erythema; ? Dec Vision EN: No EN Drainage Mucous Memb. Moist now; still some halitosis Neck: no JVD no JVP Supple no Thyromegaly CVS: S1 S2 no Murmur No Gallop No Rub no Edema - tachy Resp: no Rales occ Rhonchi no Acc. Muscle use GI: BS +ve NO Bruit Non Tender Non Distended : no CVA tenderness; no Suprapubic Tenderness Assessment & Plan ARF again (Oliguric now) : suspect CAN and ATn from PEA. Still Appears to be somewhat Intravascularly Dry as noted by Rodrick previously (Rodrick was < 20), CVP were low previously so IVF Boluses + Gtt will be contd.. Dehydration - IVF if Ok with Dr rivera et al, CVPs are expected to be ^ed given PE ^K - ? asso with dec distal Na delivery in setting of Oliguria and #2 - will ct IV NS, TPN, ? Low TSH playing a role too; Kayexalate x 1; some due to Hyperglycemia too. ct Isulin gtt Low TSH with low Free T3; Free T4 is WNL ^Phos: ct on Insulin gtt, unclear etio. LDh was min ^ed only. UTI - Citrobacter - Rocephin for now. CFU are low - will consult ID for further input if this is really contributing to hypotension. Protein Gap - Eval for Paraprotein with 24-hr ruine Proteinuria on UA - ? Underlying DM/ HTN sive / NS cannot be ruled out; May need Aldactazide if unable to take ADAN-i/ ARB due to recent ANgioedema HypoTN: now on numerous pressors. ? Hypovolemic vs sepsis. ^ed LFTs - defer to Primary team. - ? [place] liver COMMENT/RELEVANT DATA Meds Current Medications Medications (Trade) Dose Ordered Sig/[place] Start Time Stop Time Status Last Admin Dose Admin Albuterol Sulfate (Ventolin Neb Soln) 2.5 mg PRN Q2HR PRN 07/12/16 16:00 07/15/16 04:15 2.5 MG Albuterol/ Ipratropium (Duoneb) 3 ml QID 07/12/16 17:00 UNV Alteplase, Recombinant (Activase) 100 ml @ 50 mls/hr 1X ONCE 07/15/16 17:30 07/15/16 19:29 DC 07/15/16 17:30 50 MLS/HR Atorvastatin Calcium (Lipitor) 40 mg HS 07/12/16 21:00 Benzocaine (Hurricaine One) 1 spray STK-MED ONCE 07/12/16 12:00 07/13/16 16:00 DC Budesonide (Pulmicort) 0.5 mg RTBID 07/12/16 20:00 07/13/16 11:27 DC 07/13/16 07:30 0.5 MG Ceftriaxone Sodium/Sodium Chloride (Rocephin/Iv Sodium Chloride 0.9% 50ml) 50 ml @ 100 mls/hr Q24H 07/14/16 12:00 07/20/16 12:29 07/15/16 15:25 100 MLS/HR Chlorhexidine Gluconate (Peridex) 15 ml BID 07/13/16 09:00 07/15/16 21:28 15 ML Dextrose 12.5 gm PRN Q15MIN PRN 07/15/16 08:00 Diltiazem HCl (Cardizem 24hr Cd) 240 mg DAILY 07/15/16 09:00 07/16/16 07:39 DC Diphenhydramine HCl (Benadryl) 50 mg 1X ONCE 07/12/16 15:15 07/12/16 15:16 DC 07/12/16 15:15 50 MG Diphenhydramine HCl 25 mg 25 mg PRN Q6HRS PRN 07/12/16 16:00 07/12/16 16:06 25 MG Dopamine HCl/ Dextrose 400 mg STK-MED ONCE 07/15/16 11:00 07/16/16 08:06 DC Enoxaparin Sodium (Lovenox 40mg Syringe) 40 mg DAILY 07/12/16 16:30 07/15/16 14:28 DC 07/15/16 08:54 40 MG Fentanyl Citrate (Fentanyl 2ml Vial) 100 mcg STK-MED ONCE 07/15/16 11:00 07/16/16 08:06 DC Fentanyl Citrate (Fentanyl 600 Mcg/30 ml [employer]) 30 ml @ 0 mls/hr CONT PRN 07/16/16 07:15 07/16/16 08:03 2.5 MLS/HR Glycopyrrolate (Robinul) 1 mg STK-MED ONCE 07/12/16 15:00 07/13/16 08:54 DC Guaifenesin (Mucinex) 600 mg BID 07/15/16 09:00 07/16/16 07:39 DC Heparin Sodium (Porcine) 1,300 unit PRN Q6HRS PRN 07/15/16 14:30 Heparin Sodium (Porcine) 7000 unit 7,000 unit 1X ONCE 07/15/16 14:45 07/15/16 14:46 DC 07/15/16 15:27 7,000 UNIT Heparin Sodium/ Dextrose 500 ml @ 0 mls/hr CONT PRN 07/15/16 14:30 07/15/16 15:29 27 MLS/HR Heparin Sodium/ Sodium Chloride 1000 unit 1,000 unit 1X ONCE 07/15/16 12:00 07/15/16 12:01 DC Hydralazine HCl (Apresoline) 10 mg PRN Q4HRS PRN 07/14/16 22:30 Hydrochlorothiazide (Microzide) 12.5 mg DAILY 07/15/16 09:00 07/16/16 07:39 DC Info (Do NOT chart on this entry -- for MONITORING) 1 each PRN DAILY PRN 07/15/16 13:15 07/17/16 13:14 Info 1 each 1 each PRN DAILY PRN 07/14/16 09:30 07/15/16 12:47 1 EACH Insulin Aspart (Novolog) 10 units TIDAC 07/15/16 11:30 07/16/16 07:16 DC Insulin Aspart 10 units 10 units 1X ONCE 07/12/16 19:45 07/12/16 19:46 DC 07/12/16 19:41 10 UNITS Insulin Detemir (Levemir) 20 units QHS 07/15/16 21:00 07/16/16 07:16 DC 07/15/16 21:48 20 UNITS Insulin Human Regular (Novolin R Vial) 10 unit 1X ONCE 07/12/16 13:15 07/12/16 13:16 DC 07/12/16 13:16 10 UNIT Insulin Human Regular 150 unit/ Sodium Chloride 151.5 ml @ 0 mls/hr CONT PRN 07/16/16 05:00 Insulin Human Regular/Sodium Chloride (Novolin R Vial/ Iv Normal Saline 150ml) 151.5 ml @ 0 mls/hr CONT PRN 07/14/16 09:30 07/15/16 07:58 DC 07/14/16 10:01 3.9 MLS/HR Iohexol (Omnipaque 300 Mg/ml) 75 ml 1X ONCE 07/15/16 13:15 07/15/16 13:16 DC 07/15/16 13:43 75 ML Isosorbide Mononitrate (Imdur) 120 mg DAILY 07/15/16 09:00 07/16/16 07:39 DC Ketamine HCl 500 mg STK-MED ONCE 07/12/16 18:30 07/13/16 12:05 DC Lidocaine HCl 10 ml 1X ONCE 07/15/16 12:00 07/15/16 12:01 DC 07/15/16 11:57 10 ML Lidocaine HCl 20 ml 20 ml STK-MED ONCE 07/15/16 10:45 07/15/16 10:46 DC Lidocaine HCl 5 bob 5 bob STK-MED ONCE 07/12/16 12:00 07/13/16 16:00 DC Magnesium Sulfate/ Dextrose 50 ml @ 25 mls/hr PRN DAILY PRN 07/14/16 11:15 07/15/16 07:58 DC Methylprednisolone Sodium Succinate (Solu-Medrol 40mg Vial) 60 mg DAILY 07/13/16 09:00 07/13/16 09:00 DC Methylprednisolone Sodium Succinate (Solu-Medrol 125mg Vial) 125 mg DAILY 07/15/16 09:00 07/15/16 08:55 125 MG Midazolam HCl (Versed 100mg/ 100ml Premix) 100 ml @ As Directed STK-MED ONCE 07/15/16 11:03 07/15/16 11:04 DC Midazolam HCl (Versed) 10 mg STK-MED ONCE 07/15/16 11:00 07/16/16 08:06 DC Multi-Ingred Cream/Lotion/Oil/ Oint (Artificial Tears Eye Oint) 1 bob PRN Q1HR PRN 07/13/16 11:00 07/13/16 15:45 1 BOB Mupirocin (Bactroban) 1 bob BID 07/15/16 09:00 07/15/16 21:28 1 BOB Non-Formulary Medication 2.5 gm DAILY 07/13/16 09:00 UNV Norepinephrine Bitartrate/Sodium Chloride (Levophed Vial/ Iv Sodium Chloride 0.9% 250ml) 258 ml @ 0 mls/hr CONT PRN 07/15/16 11:00 Oxymetazoline HCl (Afrin) 2 spray 1X ONCE 07/12/16 18:30 07/12/16 18:31 DC Pantoprazole Sodium (Protonix Vial) 40 mg DAILY 07/13/16 09:00 07/15/16 08:55 40 MG Prednisone (Prednisone) 60 mg 1X ONCE 07/12/16 12:30 07/12/16 12:31 DC 07/12/16 12:40 60 MG Promethazine HCl/ Codeine (Phenergan With Codeine) 5 ml QID 07/12/16 17:00 07/13/16 17:18 DC Propofol (Diprivan) 1,000 mg STK-MED ONCE 07/12/16 18:00 07/13/16 09:05 DC Rocuronium [place] (Zemuron) 50 mg STK-MED ONCE 07/12/16 15:00 07/13/16 08:54 DC Scopolamine (Transderm-Scop) 1 patch Q3DAYS 07/18/16 09:00 Scopolamine 1 patch 1 patch ONCE ONCE 07/15/16 23:30 07/15/16 23:31 DC Sodium Bicarbonate 50 meq 50 meq 1X ONCE 07/15/16 16:30 07/15/16 16:34 DC 07/15/16 16:30 50 MEQ Sodium Polystyrene Sulfonate (Kayexalate) 30 gm 1X ONCE 07/15/16 08:00 07/15/16 08:08 DC Sodium Bicarbonate 50 meq STK-MED ONCE 07/15/16 11:00 07/16/16 08:06 DC Sodium Chloride 1,000 ml @ 1,000 mls/hr 1X ONCE 07/16/16 01:00 07/16/16 01:59 DC 07/16/16 02:38 1,000 MLS/HR Sodium Chloride (Iv Sodium Chloride 0.9% 1000ml Bag) 1,000 ml @ 150 mls/hr Q6H40M 07/12/16 16:30 07/14/16 09:31 DC 07/14/16 01:21 100 MLS/HR Sodium Chloride/ Magnesium Sulfate/ Calcium Gluconate/ Multivitamins/ Chromium/Copper/ Manganese/Seleni/ Zn/Total Parenteral Nutrition/Amino Acids/Dextrose (Sodium Chloride/ Infuvite Adult/ Multitrace-5 Conc/ Tpn - Tpn Fluid/ Trophamine/ Dextrose 70%-Water Iv Soln) 1,512 ml @ 63 mls/hr TPN CONT 07/15/16 22:00 07/16/16 21:59 07/15/16 21:27 63 MLS/HR Succinylcholine Chloride (Anectine) 200 mg STK-MED ONCE 07/12/16 18:00 07/13/16 09:05 DC Vasopressin 40 unit/Dextrose 102 ml @ 6 mls/hr CONT PRN 07/16/16 05:00 Vecuronium [place] 10 mg 10 mg STK-MED ONCE 07/15/16 11:03 07/15/16 11:04 DC Vecuronium [place]/Dextrose (Norcuron) 100 ml @ 0 mls/hr CONT PRN 07/12/16 21:00 07/14/16 09:31 DC 07/13/16 20:48 2.58 MLS/HR Vecuronium [place] (Norcuron Bolus) 10 mg STK-MED ONCE 07/15/16 11:00 07/16/16 08:06 DC Warfarin Sodium (Coumadin Per Pharmacy) 1 each PRN DAILY PRN 07/15/16 14:30 07/15/16 14:30 DC Lab Laboratory Tests Test 07/15/16 08:45 07/15/16 10:16 07/15/16 10:30 07/15/16 11:40 Glucose (Fingerstick) 149mg/dL (70-99) 146mg/dL (70-99) Troponin I Quantitative < 0.017ng/mL (0.000-0.055) O2 Saturation 100% (92-99) Arterial Blood pH 6.93 (7.35-7.45) Arterial Blood pCO2 at Patient Temp 88mmHg (35-46) Arterial Blood pO2 at Patient Temp > 503mmHg (65-108) Arterial Blood HCO3 18mmol/L (21-28) Arterial Blood Base Excess -15mmol/L (-3-3) FiO2 100 Test 07/15/16 16:15 07/15/16 17:04 07/15/16 21:35 07/15/16 23:55 Glucose (Fingerstick) 280mg/dL (70-99) 302mg/dL (70-99) Bedside Creatinine 1.3mg/dL (0.7-1.3) Lactic Acid Level 0.9mmol/L (0.4-2.0) Test 07/16/16 02:15 07/16/16 03:55 07/16/16 07:17 Heparin Anti-Xa Act, Unfractionated 1.07IU/mL (0.30-0.70) White Blood Count 12.0x10^3/uL (4.0-11.0) Red Blood Count 3.08x10^6/uL (4.30-5.70) Hemoglobin 8.2g/dL (13.0-17.5) Hematocrit 26.5% (39.0-53.0) Mean Corpuscular Volume 86fL (79-100) Mean Corpuscular Hemoglobin 27pg (25-35) Mean Corpuscular Hemoglobin Concent 31g/dL (31-37) Red Cell Distribution Width 14.4% (11.5-14.5) Platelet Count 390x10^3/uL (140-400) Neutrophils (%) (Auto) 69% (31-73) Lymphocytes (%) (Auto) 19% (24-48) Monocytes (%) (Auto) 12% (0-9) Eosinophils (%) (Auto) 0% (0-3) Basophils (%) (Auto) 1% (0-3) Neutrophils # (Auto) 8.3x10^3uL (1.8-7.7) Lymphocytes # (Auto) 2.3x10^3/uL (1.0-4.8) Monocytes # (Auto) 1.4x10^3/uL (0.0-1.1) Eosinophils # (Auto) 0.0x10^3/uL (0.0-0.7) Basophils # (Auto) 0.1x10^3/uL (0.0-0.2) Sodium Level 142mmol/L (136-145) Potassium Level 5.8mmol/L (3.5-5.1) Chloride Level 109mmol/L (98-107) Carbon Dioxide Level 24mmol/L (21-32) Anion Gap 9 (6-14) Blood Urea Nitrogen 66mg/dL (8-26) Creatinine 2.0mg/dL (0.7-1.3) Estimated GFR (Cockcroft-Gault) 39.8 BUN/Creatinine Ratio 33 (6-20) Glucose Level 437mg/dL (70-99) Calcium Level 8.0mg/dL (8.5-10.1) Phosphorus Level 6.9mg/dL (2.6-4.7) Magnesium Level 2.4mg/dL (1.8-2.4) Total Bilirubin 0.3mg/dL (0.2-1.0) Aspartate Amino Transf (AST/SGOT) 219U/L (15-37) Alanine Aminotransferase (ALT/SGPT) 227U/L (16-63) Alkaline Phosphatase 225U/L (46-116) Total Protein 5.4g/dL (6.4-8.2) Albumin 1.6g/dL (3.4-5.0) Albumin/Globulin Ratio 0.4 (1.0-1.7) Glucose (Fingerstick) 356mg/dL (70-99) FELIBERTO GIL MD Jul 16, 2016 08:26
[2016-07-16] MEDS ORDERED: SODIUM POLYSTYRENE SULFONATE 15 GM/60 ML ORAL.SUSP. PO ONE (08:30)
--- NOTE | 2016-07-16 08:39 | PDOC ---
PULMONARY PROGRESS NOTES Subjective intubated yesterday, on vent sedated, small ett secretion. on levo, dopamine, vaso Vitals Vital Signs Date Time Temp Pulse Resp B/P Pulse Ox O2 Delivery O2 Flow Rate FiO2 07/16/16 08:03 97 3.0 07/16/16 08:00 98.4 128 25 89/53 Ventilator 98.4 Comments ros discussed w rn, as mentioned as above other sys otherwise neg General: Lethargic HEENT: Other (nc at orally intubated, nose clear, ) Lungs: Crackles, Other (decrease bs) Cardiovascular: S1, S2 Abdomen: Soft, Non-tender Extremities: Other (trace edema) Skin: Warm Labs Laboratory Tests Test 07/14/16 08:32 07/14/16 09:55 07/14/16 11:12 07/14/16 12:40 Glucose (Fingerstick) 271mg/dL (70-99) 256mg/dL (70-99) 232mg/dL (70-99) Potassium Level 5.4mmol/L (3.5-5.1) Uric Acid 3.9mg/dL (3.5-7.2) Creatine Kinase 67U/L (39-308) Immunoglobulin [place]/Lambda Ratio 0.69 (0.26-1.65) Free [place] Light Chains 40.15mg/L (3.30-19.40) Free [place] Light Chains 58.21mg/L (5.71-26.30) Test 07/14/16 13:00 07/14/16 13:02 07/14/16 14:06 07/14/16 15:14 Urine Collection Type Unknown Urine Color Yellow Urine Clarity Cloudy Urine pH 5.0 Urine Specific [place] 1.020 Urine Protein Negativemg/dL (NEG-TRACE) Urine Glucose (UA) Negativemg/dL (NEG) Urine Ketones (Stick) Negativemg/dL (NEG) Urine Blood Negative (NEG) Urine Nitrite Negative (NEG) Urine Bilirubin Negative (NEG) Urine Urobilinogen Dipstick 0.2mg/dL (0.2 mg/dL) Urine Leukocyte Esterase Small (NEG) Urine RBC Occ/HPF (0-2) Urine WBC 5-10/HPF (0-4) Urine Bacteria Few/HPF (0-FEW) Urine Hyaline Casts Few/HPF Urine Mucus Mod/LPF Urine Yeast Present/HPF Urine Random Sodium <20mmol/L (Not Estab.) Glucose (Fingerstick) 166mg/dL (70-99) 124mg/dL (70-99) 89mg/dL (70-99) Test 07/14/16 16:05 07/14/16 16:19 07/14/16 17:39 07/14/16 18:47 O2 Saturation 92% (92-99) Arterial Blood pH 7.31 (7.35-7.45) Arterial Blood pCO2 at Patient Temp 49mmHg (35-46) Arterial Blood pO2 at Patient Temp 67mmHg (65-108) Arterial Blood HCO3 24mmol/L (21-28) Arterial Blood Base Excess -2mmol/L (-3-3) FiO2 3 lpm nc Glucose (Fingerstick) 84mg/dL (70-99) 82mg/dL (70-99) 90mg/dL (70-99) Test 07/14/16 19:59 07/14/16 21:03 07/14/16 22:18 07/14/16 23:28 Glucose (Fingerstick) 82mg/dL (70-99) 93mg/dL (70-99) 87mg/dL (70-99) 137mg/dL (70-99) Test 07/15/16 00:32 07/15/16 01:33 07/15/16 02:30 07/15/16 03:32 Glucose (Fingerstick) 168mg/dL (70-99) 189mg/dL (70-99) 176mg/dL (70-99) 146mg/dL (70-99) Test 07/15/16 04:36 07/15/16 05:40 07/15/16 05:45 07/15/16 06:32 Glucose (Fingerstick) 120mg/dL (70-99) 134mg/dL (70-99) 142mg/dL (70-99) White Blood Count 10.9x10^3/uL (4.0-11.0) Red Blood Count 3.46x10^6/uL (4.30-5.70) Hemoglobin 9.6g/dL (13.0-17.5) Hematocrit 29.7% (39.0-53.0) Mean Corpuscular Volume 86fL (79-100) Mean Corpuscular Hemoglobin 28pg (25-35) Mean Corpuscular Hemoglobin Concent 32g/dL (31-37) Red Cell Distribution Width 14.3% (11.5-14.5) Platelet Count 428x10^3/uL (140-400) Neutrophils (%) (Auto) 86% (31-73) Lymphocytes (%) (Auto) 5% (24-48) Monocytes (%) (Auto) 8% (0-9) Eosinophils (%) (Auto) 0% (0-3) Basophils (%) (Auto) 1% (0-3) Neutrophils # (Auto) 9.4x10^3uL (1.8-7.7) Lymphocytes # (Auto) 0.6x10^3/uL (1.0-4.8) Monocytes # (Auto) 0.9x10^3/uL (0.0-1.1) Eosinophils # (Auto) 0.0x10^3/uL (0.0-0.7) Basophils # (Auto) 0.1x10^3/uL (0.0-0.2) Segmented Neutrophils % 79% (35-66) Band Neutrophils % 5% (0-9) Lymphocytes % 9% (24-48) Monocytes % 7% (0-10) Platelet Estimate Increased (ADEQUATE) Sodium Level 141mmol/L (136-145) Potassium Level 5.2mmol/L (3.5-5.1) Chloride Level 106mmol/L (98-107) Carbon Dioxide Level 25mmol/L (21-32) Anion Gap 10 (6-14) Blood Urea Nitrogen 40mg/dL (8-26) Creatinine 1.1mg/dL (0.7-1.3) Estimated GFR (Cockcroft-Gault) 79.4 BUN/Creatinine Ratio 36 (6-20) Glucose Level 144mg/dL (70-99) Calcium Level 9.2mg/dL (8.5-10.1) Phosphorus Level 4.2mg/dL (2.6-4.7) Magnesium Level 2.5mg/dL (1.8-2.4) Total Bilirubin 0.2mg/dL (0.2-1.0) Aspartate Amino Transf (AST/SGOT) 16U/L (15-37) Alanine Aminotransferase (ALT/SGPT) 10U/L (16-63) Alkaline Phosphatase 69U/L (46-116) Total Protein 7.2g/dL (6.4-8.2) Albumin 2.1g/dL (3.4-5.0) Albumin/Globulin Ratio 0.4 (1.0-1.7) Triglycerides Level 135mg/dL (0-150) Free Thyroxine 0.76ng/dL (0.76-1.46) Free Triiodothyronine (T3) pg/mL 1.32pg/mL (2.18-3.98) Test 07/15/16 07:40 07/15/16 08:45 07/15/16 10:16 07/15/16 10:30 Glucose (Fingerstick) 168mg/dL (70-99) 149mg/dL (70-99) 146mg/dL (70-99) Troponin I Quantitative < 0.017ng/mL (0.000-0.055) Test 07/15/16 11:40 07/15/16 16:15 07/15/16 17:04 07/15/16 21:35 O2 Saturation 100% (92-99) Arterial Blood pH 6.93 (7.35-7.45) Arterial Blood pCO2 at Patient Temp 88mmHg (35-46) Arterial Blood pO2 at Patient Temp > 503mmHg (65-108) Arterial Blood HCO3 18mmol/L (21-28) Arterial Blood Base Excess -15mmol/L (-3-3) FiO2 100 Glucose (Fingerstick) 280mg/dL (70-99) 302mg/dL (70-99) Bedside Creatinine 1.3mg/dL (0.7-1.3) Test 07/15/16 23:55 07/16/16 02:15 07/16/16 03:55 07/16/16 07:17 Lactic Acid Level 0.9mmol/L (0.4-2.0) Heparin Anti-Xa Act, Unfractionated 1.07IU/mL (0.30-0.70) White Blood Count 12.0x10^3/uL (4.0-11.0) Red Blood Count 3.08x10^6/uL (4.30-5.70) Hemoglobin 8.2g/dL (13.0-17.5) Hematocrit 26.5% (39.0-53.0) Mean Corpuscular Volume 86fL (79-100) Mean Corpuscular Hemoglobin 27pg (25-35) Mean Corpuscular Hemoglobin Concent 31g/dL (31-37) Red Cell Distribution Width 14.4% (11.5-14.5) Platelet Count 390x10^3/uL (140-400) Neutrophils (%) (Auto) 69% (31-73) Lymphocytes (%) (Auto) 19% (24-48) Monocytes (%) (Auto) 12% (0-9) Eosinophils (%) (Auto) 0% (0-3) Basophils (%) (Auto) 1% (0-3) Neutrophils # (Auto) 8.3x10^3uL (1.8-7.7) Lymphocytes # (Auto) 2.3x10^3/uL (1.0-4.8) Monocytes # (Auto) 1.4x10^3/uL (0.0-1.1) Eosinophils # (Auto) 0.0x10^3/uL (0.0-0.7) Basophils # (Auto) 0.1x10^3/uL (0.0-0.2) Sodium Level 142mmol/L (136-145) Potassium Level 5.8mmol/L (3.5-5.1) Chloride Level 109mmol/L (98-107) Carbon Dioxide Level 24mmol/L (21-32) Anion Gap 9 (6-14) Blood Urea Nitrogen 66mg/dL (8-26) Creatinine 2.0mg/dL (0.7-1.3) Estimated GFR (Cockcroft-Gault) 39.8 BUN/Creatinine Ratio 33 (6-20) Glucose Level 437mg/dL (70-99) Calcium Level 8.0mg/dL (8.5-10.1) Phosphorus Level 6.9mg/dL (2.6-4.7) Magnesium Level 2.4mg/dL (1.8-2.4) Total Bilirubin 0.3mg/dL (0.2-1.0) Aspartate Amino Transf (AST/SGOT) 219U/L (15-37) Alanine Aminotransferase (ALT/SGPT) 227U/L (16-63) Alkaline Phosphatase 225U/L (46-116) Total Protein 5.4g/dL (6.4-8.2) Albumin 1.6g/dL (3.4-5.0) Albumin/Globulin Ratio 0.4 (1.0-1.7) Glucose (Fingerstick) 356mg/dL (70-99) Laboratory Tests Test 07/15/16 08:45 07/15/16 10:16 07/15/16 10:30 07/15/16 11:40 Glucose (Fingerstick) 149mg/dL (70-99) 146mg/dL (70-99) Troponin I Quantitative < 0.017ng/mL (0.000-0.055) O2 Saturation 100% (92-99) Arterial Blood pH 6.93 (7.35-7.45) Arterial Blood pCO2 at Patient Temp 88mmHg (35-46) Arterial Blood pO2 at Patient Temp > 503mmHg (65-108) Arterial Blood HCO3 18mmol/L (21-28) Arterial Blood Base Excess -15mmol/L (-3-3) FiO2 100 Test 07/15/16 16:15 07/15/16 17:04 07/15/16 21:35 07/15/16 23:55 Glucose (Fingerstick) 280mg/dL (70-99) 302mg/dL (70-99) Bedside Creatinine 1.3mg/dL (0.7-1.3) Lactic Acid Level 0.9mmol/L (0.4-2.0) Test 07/16/16 02:15 07/16/16 03:55 07/16/16 07:17 Heparin Anti-Xa Act, Unfractionated 1.07IU/mL (0.30-0.70) White Blood Count 12.0x10^3/uL (4.0-11.0) Red Blood Count 3.08x10^6/uL (4.30-5.70) Hemoglobin 8.2g/dL (13.0-17.5) Hematocrit 26.5% (39.0-53.0) Mean Corpuscular Volume 86fL (79-100) Mean Corpuscular Hemoglobin 27pg (25-35) Mean Corpuscular Hemoglobin Concent 31g/dL (31-37) Red Cell Distribution Width 14.4% (11.5-14.5) Platelet Count 390x10^3/uL (140-400) Neutrophils (%) (Auto) 69% (31-73) Lymphocytes (%) (Auto) 19% (24-48) Monocytes (%) (Auto) 12% (0-9) Eosinophils (%) (Auto) 0% (0-3) Basophils (%) (Auto) 1% (0-3) Neutrophils # (Auto) 8.3x10^3uL (1.8-7.7) Lymphocytes # (Auto) 2.3x10^3/uL (1.0-4.8) Monocytes # (Auto) 1.4x10^3/uL (0.0-1.1) Eosinophils # (Auto) 0.0x10^3/uL (0.0-0.7) Basophils # (Auto) 0.1x10^3/uL (0.0-0.2) Sodium Level 142mmol/L (136-145) Potassium Level 5.8mmol/L (3.5-5.1) Chloride Level 109mmol/L (98-107) Carbon Dioxide Level 24mmol/L (21-32) Anion Gap 9 (6-14) Blood Urea Nitrogen 66mg/dL (8-26) Creatinine 2.0mg/dL (0.7-1.3) Estimated GFR (Cockcroft-Gault) 39.8 BUN/Creatinine Ratio 33 (6-20) Glucose Level 437mg/dL (70-99) Calcium Level 8.0mg/dL (8.5-10.1) Phosphorus Level 6.9mg/dL (2.6-4.7) Magnesium Level 2.4mg/dL (1.8-2.4) Total Bilirubin 0.3mg/dL (0.2-1.0) Aspartate Amino Transf (AST/SGOT) 219U/L (15-37) Alanine Aminotransferase (ALT/SGPT) 227U/L (16-63) Alkaline Phosphatase 225U/L (46-116) Total Protein 5.4g/dL (6.4-8.2) Albumin 1.6g/dL (3.4-5.0) Albumin/Globulin Ratio 0.4 (1.0-1.7) Glucose (Fingerstick) 356mg/dL (70-99) Medications Active Scripts Medications Dose Route/Sig Days Date Category Advair 100-50 Diskus (Fluticasone/Salmeterol) 1 Each Disk.w.dev 1 Puff IH BID 06/21/16 Reported Spiriva Respimat (Tiotropium Erwin) 4 Gm Mist.inhal 2.5 Gm IH DAILY 06/21/16 Reported Symbicort 160-4.5 Mcg Inhaler (Budesonide/Formoterol Fumarate) 10.2 Gm Hfa.aer.ad 2 Puff IH BID 06/21/16 Reported Atorvastatin Calcium 20 Mg Tablet 20 Mg PO HS 06/21/16 Reported Lisinopril-Hctz 10-12.5 Mg Tab (Lisinopril/Hydrochlorothiazide) 1 Each Tablet 1 Tab PO DAILY 06/21/16 Reported Isosorbide Mononitrate Er (Isosorbide Mononitrate) 120 Mg Tab.er.24h 120 Mg PO DAILY 06/21/16 Reported Levemir Flextouch (Insulin Detemir) 100 Unit/1 Ml Insuln.pen 20 Units SQ QHS 30 11/24/15 Rx Novolog Flexpen (Insulin Aspart) 100 Unit/1 Ml Insuln.pen 10 Units SQ TIDAC 30 11/24/15 Rx Novolin N (Nph, Human Insulin Isophane) 100 Unit/1 Ml Vial 0 SQ 11/18/15 Reported Promethazine-Codeine Syrup (Promethazine Hcl/Codeine) 118 Ml Syrup 5 Ml PO Q4-6HRS 11/18/15 Reported Diltiazem 24HR Cd (Diltiazem Hcl) 240 Mg Cap.er.24h 240 Mg PO DAILY 11/18/15 Reported NITROGLYCERIN SubLingual (Nitroglycerin) 0.4 Mg Tab.subl 0.4 Mg SL PRN Q5MIN PRN 11/18/15 Reported Atorvastatin Calcium 40 Mg Tablet 40 Mg PO HS 11/18/[address] reviewed, 1. Widespread multifocal bilateral segmental pulmonary embolism, with nonocclusive lobar embolism involving the right lower and middle lobes. 2. Diffuse tree-in-bud opacification suggestive of acute bronchiolitis. Findings are less confluence than on the prior examination, but now involve the lower lobes. 3. Right heart enlargement with straightening of the interventricular septum possibly due to pulmonary hypertension. Correlate clinically and consider echocardiography if warranted. 4. Short segment high-grade stricture and/or focal obliteration of the right upper lobe bronchus. No adjacent mass or evidence of extrinsic compression. This is stable. Impression . 1. Acute respiratory failure secondary to angioedema, self extubated 07/14, reintubated 07/15, s/p cp arrest, pe, dvt, s/p tpa 2. Lisinopril induced angioedema. 3. Chronic obstructive pulmonary disease. 4. Hypertension. 5. Coronary artery disease. 6. lyndsey Plan . 1. Stat CXR, will review, abg reviewed, i personally change rr to 25, cont vent support, setting reviewed 2. Continue steroids. 3. GI prophylaxis. 4. nephro consulted, reviewed case w nephro 5. cont pressors to keep map 65 6. bicarb gtt, may need hd 7. change DuoNeb to Atrovent only. is tachy 8. am abg, pcxr 9. agree w iv fluid 10. cont hep gtt, monitor closely for bleeding, cath site is ok discussed w rn, rt, nephro pt is critically ill, this is cc time 30 min w/o SARAH Heredia MD Jul 16, 2016 08:39
[2016-07-16] MEDS: DOPAMINE 400MG/250ML PREMIX 250 ML IV PRN ×3 (08:42→23:10)
[2016-07-16] MEDS: HYDROCORTISONE SOD SUCC/PF 100 MG/2 ML VIAL. IV SCH ×3 (08:43→21:52)
[2016-07-16] MEDS: PANTOPRAZOLE IV PUSH 40 MG VIAL. IVP SCH (08:43)
[2016-07-16] MEDS ORDERED: SODIUM BICARB ADULT 8.4% 50 MEQ/50 ML DISP.SYRIN. IV ONE (08:45)
[2016-07-16] MEDS ORDERED: ANTI-COAG MONITOR BY PHARMACY. MC PRN (08:45)
--- NOTE | 2016-07-16 08:59 | PDOC ---
PROGRESS NOTES Chief Complaint Chief Complaint Angioedema ASSESSMENT AND PLAN: 1. angioedema 2/2 ACEI likely; self extubated 07/14/16 - resolved 2. s/p CP arrest (PEA) sec to Multiple bilateral PE (07/15) 3. NOn occlusive thrombus, R leg (07/15) 4. COPD hx, 5. Low TSH levels in a critically ill patient 6. DM2: insulin requiring 7. Oliguric Hyperkalemic renal failure 8. Metabolic acidosis s/p arrest 9. Dyslipidemia on statin 10. HYpotensive shock on 3 pressors 11. Acute respiratory failure - intubated again (07/15) secondary to code blue ( PEA # 2) History of Present Illness History of Present Illness FAll yesterday while working with PT EKG done stat showed possible STEMI STEMI alert called UNderwent stat LHC which was clean. CTA chest showed multiple PE US legs showed non occlussive thrombus R, no DVT on left NOw, intubated, 3 pressors, TPN, fentanyl gtt, insulin gtt [place] in ? output? Plans of inserting a trialysis cath by renal? 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 Vitals Vitals Vital Signs Date Time Temp Pulse Resp B/P Pulse Ox O2 Delivery O2 Flow Rate FiO2 07/16/16 08:03 97 3.0 07/16/16 08:00 98.4 128 25 89/53 Ventilator 98.4 Physical Exam General: No acute distress Heart: Regular rate Lungs: Crackles, Other (decrease bs) Abdomen: Normal bowel sounds, Soft Extremities: No edema Skin: No rashes Labs LABS Laboratory Tests Test 07/15/16 10:16 07/15/16 10:30 07/15/16 11:40 07/15/16 16:15 Glucose (Fingerstick) 146mg/dL (70-99) 280mg/dL (70-99) Troponin I Quantitative < 0.017ng/mL (0.000-0.055) O2 Saturation 100% (92-99) Arterial Blood pH 6.93 (7.35-7.45) Arterial Blood pCO2 at Patient Temp 88mmHg (35-46) Arterial Blood pO2 at Patient Temp > 503mmHg (65-108) Arterial Blood HCO3 18mmol/L (21-28) Arterial Blood Base Excess -15mmol/L (-3-3) FiO2 100 Test 07/15/16 17:04 07/15/16 21:35 07/15/16 23:55 07/16/16 02:15 Bedside Creatinine 1.3mg/dL (0.7-1.3) Glucose (Fingerstick) 302mg/dL (70-99) Lactic Acid Level 0.9mmol/L (0.4-2.0) Heparin Anti-Xa Act, Unfractionated 1.07IU/mL (0.30-0.70) Test 07/16/16 03:55 07/16/16 07:17 07/16/16 07:55 07/16/16 08:00 White Blood Count 12.0x10^3/uL (4.0-11.0) Red Blood Count 3.08x10^6/uL (4.30-5.70) Hemoglobin 8.2g/dL (13.0-17.5) Hematocrit 26.5% (39.0-53.0) Mean Corpuscular Volume 86fL (79-100) Mean Corpuscular Hemoglobin 27pg (25-35) Mean Corpuscular Hemoglobin Concent 31g/dL (31-37) Red Cell Distribution Width 14.4% (11.5-14.5) Platelet Count 390x10^3/uL (140-400) Neutrophils (%) (Auto) 69% (31-73) Lymphocytes (%) (Auto) 19% (24-48) Monocytes (%) (Auto) 12% (0-9) Eosinophils (%) (Auto) 0% (0-3) Basophils (%) (Auto) 1% (0-3) Neutrophils # (Auto) 8.3x10^3uL (1.8-7.7) Lymphocytes # (Auto) 2.3x10^3/uL (1.0-4.8) Monocytes # (Auto) 1.4x10^3/uL (0.0-1.1) Eosinophils # (Auto) 0.0x10^3/uL (0.0-0.7) Basophils # (Auto) 0.1x10^3/uL (0.0-0.2) Sodium Level 142mmol/L (136-145) Potassium Level 5.8mmol/L (3.5-5.1) Chloride Level 109mmol/L (98-107) Carbon Dioxide Level 24mmol/L (21-32) Anion Gap 9 (6-14) Blood Urea Nitrogen 66mg/dL (8-26) Creatinine 2.0mg/dL (0.7-1.3) Estimated GFR (Cockcroft-Gault) 39.8 BUN/Creatinine Ratio 33 (6-20) Glucose Level 437mg/dL (70-99) Calcium Level 8.0mg/dL (8.5-10.1) Phosphorus Level 6.9mg/dL (2.6-4.7) Magnesium Level 2.4mg/dL (1.8-2.4) Total Bilirubin 0.3mg/dL (0.2-1.0) Aspartate Amino Transf (AST/SGOT) 219U/L (15-37) Alanine Aminotransferase (ALT/SGPT) 227U/L (16-63) Alkaline Phosphatase 225U/L (46-116) Total Protein 5.4g/dL (6.4-8.2) Albumin 1.6g/dL (3.4-5.0) Albumin/Globulin Ratio 0.4 (1.0-1.7) Glucose (Fingerstick) 356mg/dL (70-99) Heparin Anti-Xa Act, Unfractionated > 1.10IU/mL (0.30-0.70) O2 Saturation 93% (92-99) Arterial Blood pH 7.19 (7.35-7.45) Arterial Blood pCO2 at Patient Temp 45mmHg (35-46) Arterial Blood pO2 at Patient Temp 88mmHg (65-108) Arterial Blood HCO3 17mmol/L (21-28) Arterial Blood Base Excess -11mmol/L (-3-3) Test 07/16/16 08:36 Glucose (Fingerstick) 348mg/dL (70-99) Review of Systems Review of Systems intubated Assessment and Plan Assessmemt and Plan Problems Medical Problems: (1) COPD exacerbation Status: Acute (2) Hyperglycemia Status: Acute Problems: Comment Review of Relevant I have reviewed the following items valerie (where applicable) has been applied. Labs Laboratory Tests Test 07/14/16 09:55 07/14/16 11:12 07/14/16 12:40 07/14/16 13:00 Glucose (Fingerstick) 256mg/dL (70-99) 232mg/dL (70-99) Potassium Level 5.4mmol/L (3.5-5.1) Uric Acid 3.9mg/dL (3.5-7.2) Creatine Kinase 67U/L (39-308) Immunoglobulin [place]/Lambda Ratio 0.69 (0.26-1.65) Free [place] Light Chains 40.15mg/L (3.30-19.40) Free [place] Light Chains 58.21mg/L (5.71-26.30) Urine Collection Type Unknown Urine Color Yellow Urine Clarity Cloudy Urine pH 5.0 Urine Specific [place] 1.020 Urine Protein Negativemg/dL (NEG-TRACE) Urine Glucose (UA) Negativemg/dL (NEG) Urine Ketones (Stick) Negativemg/dL (NEG) Urine Blood Negative (NEG) Urine Nitrite Negative (NEG) Urine Bilirubin Negative (NEG) Urine Urobilinogen Dipstick 0.2mg/dL (0.2 mg/dL) Urine Leukocyte Esterase Small (NEG) Urine RBC Occ/HPF (0-2) Urine WBC 5-10/HPF (0-4) Urine Bacteria Few/HPF (0-FEW) Urine Hyaline Casts Few/HPF Urine Mucus Mod/LPF Urine Yeast Present/HPF Urine Random Sodium <20mmol/L (Not Estab.) Test 07/14/16 13:02 07/14/16 14:06 07/14/16 15:14 07/14/16 16:05 Glucose (Fingerstick) 166mg/dL (70-99) 124mg/dL (70-99) 89mg/dL (70-99) O2 Saturation 92% (92-99) Arterial Blood pH 7.31 (7.35-7.45) Arterial Blood pCO2 at Patient Temp 49mmHg (35-46) Arterial Blood pO2 at Patient Temp 67mmHg (65-108) Arterial Blood HCO3 24mmol/L (21-28) Arterial Blood Base Excess -2mmol/L (-3-3) FiO2 3 lpm nc Test 07/14/16 16:19 07/14/16 17:39 07/14/16 18:47 07/14/16 19:59 Glucose (Fingerstick) 84mg/dL (70-99) 82mg/dL (70-99) 90mg/dL (70-99) 82mg/dL (70-99) Test 07/14/16 21:03 07/14/16 22:18 07/14/16 23:28 07/15/16 00:32 Glucose (Fingerstick) 93mg/dL (70-99) 87mg/dL (70-99) 137mg/dL (70-99) 168mg/dL (70-99) Test 07/15/16 01:33 07/15/16 02:30 07/15/16 03:32 07/15/16 04:36 Glucose (Fingerstick) 189mg/dL (70-99) 176mg/dL (70-99) 146mg/dL (70-99) 120mg/dL (70-99) Test 07/15/16 05:40 07/15/16 05:45 07/15/16 06:32 07/15/16 07:40 Glucose (Fingerstick) 134mg/dL (70-99) 142mg/dL (70-99) 168mg/dL (70-99) White Blood Count 10.9x10^3/uL (4.0-11.0) Red Blood Count 3.46x10^6/uL (4.30-5.70) Hemoglobin 9.6g/dL (13.0-17.5) Hematocrit 29.7% (39.0-53.0) Mean Corpuscular Volume 86fL (79-100) Mean Corpuscular Hemoglobin 28pg (25-35) Mean Corpuscular Hemoglobin Concent 32g/dL (31-37) Red Cell Distribution Width 14.3% (11.5-14.5) Platelet Count 428x10^3/uL (140-400) Neutrophils (%) (Auto) 86% (31-73) Lymphocytes (%) (Auto) 5% (24-48) Monocytes (%) (Auto) 8% (0-9) Eosinophils (%) (Auto) 0% (0-3) Basophils (%) (Auto) 1% (0-3) Neutrophils # (Auto) 9.4x10^3uL (1.8-7.7) Lymphocytes # (Auto) 0.6x10^3/uL (1.0-4.8) Monocytes # (Auto) 0.9x10^3/uL (0.0-1.1) Eosinophils # (Auto) 0.0x10^3/uL (0.0-0.7) Basophils # (Auto) 0.1x10^3/uL (0.0-0.2) Segmented Neutrophils % 79% (35-66) Band Neutrophils % 5% (0-9) Lymphocytes % 9% (24-48) Monocytes % 7% (0-10) Platelet Estimate Increased (ADEQUATE) Sodium Level 141mmol/L (136-145) Potassium Level 5.2mmol/L (3.5-5.1) Chloride Level 106mmol/L (98-107) Carbon Dioxide Level 25mmol/L (21-32) Anion Gap 10 (6-14) Blood Urea Nitrogen 40mg/dL (8-26) Creatinine 1.1mg/dL (0.7-1.3) Estimated GFR (Cockcroft-Gault) 79.4 BUN/Creatinine Ratio 36 (6-20) Glucose Level 144mg/dL (70-99) Calcium Level 9.2mg/dL (8.5-10.1) Phosphorus Level 4.2mg/dL (2.6-4.7) Magnesium Level 2.5mg/dL (1.8-2.4) Total Bilirubin 0.2mg/dL (0.2-1.0) Aspartate Amino Transf (AST/SGOT) 16U/L (15-37) Alanine Aminotransferase (ALT/SGPT) 10U/L (16-63) Alkaline Phosphatase 69U/L (46-116) Total Protein 7.2g/dL (6.4-8.2) Albumin 2.1g/dL (3.4-5.0) Albumin/Globulin Ratio 0.4 (1.0-1.7) Triglycerides Level 135mg/dL (0-150) Free Thyroxine 0.76ng/dL (0.76-1.46) Free Triiodothyronine (T3) pg/mL 1.32pg/mL (2.18-3.98) Test 07/15/16 08:45 07/15/16 10:16 07/15/16 10:30 07/15/16 11:40 Glucose (Fingerstick) 149mg/dL (70-99) 146mg/dL (70-99) Troponin I Quantitative < 0.017ng/mL (0.000-0.055) O2 Saturation 100% (92-99) Arterial Blood pH 6.93 (7.35-7.45) Arterial Blood pCO2 at Patient Temp 88mmHg (35-46) Arterial Blood pO2 at Patient Temp > 503mmHg (65-108) Arterial Blood HCO3 18mmol/L (21-28) Arterial Blood Base Excess -15mmol/L (-3-3) FiO2 100 Test 07/15/16 16:15 07/15/16 17:04 07/15/16 21:35 07/15/16 23:55 Glucose (Fingerstick) 280mg/dL (70-99) 302mg/dL (70-99) Bedside Creatinine 1.3mg/dL (0.7-1.3) Lactic Acid Level 0.9mmol/L (0.4-2.0) Test 07/16/16 02:15 07/16/16 03:55 07/16/16 07:17 07/16/16 07:55 Heparin Anti-Xa Act, Unfractionated 1.07IU/mL (0.30-0.70) > 1.10IU/mL (0.30-0.70) White Blood Count 12.0x10^3/uL (4.0-11.0) Red Blood Count 3.08x10^6/uL (4.30-5.70) Hemoglobin 8.2g/dL (13.0-17.5) Hematocrit 26.5% (39.0-53.0) Mean Corpuscular Volume 86fL (79-100) Mean Corpuscular Hemoglobin 27pg (25-35) Mean Corpuscular Hemoglobin Concent 31g/dL (31-37) Red Cell Distribution Width 14.4% (11.5-14.5) Platelet Count 390x10^3/uL (140-400) Neutrophils (%) (Auto) 69% (31-73) Lymphocytes (%) (Auto) 19% (24-48) Monocytes (%) (Auto) 12% (0-9) Eosinophils (%) (Auto) 0% (0-3) Basophils (%) (Auto) 1% (0-3) Neutrophils # (Auto) 8.3x10^3uL (1.8-7.7) Lymphocytes # (Auto) 2.3x10^3/uL (1.0-4.8) Monocytes # (Auto) 1.4x10^3/uL (0.0-1.1) Eosinophils # (Auto) 0.0x10^3/uL (0.0-0.7) Basophils # (Auto) 0.1x10^3/uL (0.0-0.2) Sodium Level 142mmol/L (136-145) Potassium Level 5.8mmol/L (3.5-5.1) Chloride Level 109mmol/L (98-107) Carbon Dioxide Level 24mmol/L (21-32) Anion Gap 9 (6-14) Blood Urea Nitrogen 66mg/dL (8-26) Creatinine 2.0mg/dL (0.7-1.3) Estimated GFR (Cockcroft-Gault) 39.8 BUN/Creatinine Ratio 33 (6-20) Glucose Level 437mg/dL (70-99) Calcium Level 8.0mg/dL (8.5-10.1) Phosphorus Level 6.9mg/dL (2.6-4.7) Magnesium Level 2.4mg/dL (1.8-2.4) Total Bilirubin 0.3mg/dL (0.2-1.0) Aspartate Amino Transf (AST/SGOT) 219U/L (15-37) Alanine Aminotransferase (ALT/SGPT) 227U/L (16-63) Alkaline Phosphatase 225U/L (46-116) Total Protein 5.4g/dL (6.4-8.2) Albumin 1.6g/dL (3.4-5.0) Albumin/Globulin Ratio 0.4 (1.0-1.7) Glucose (Fingerstick) 356mg/dL (70-99) Test 07/16/16 08:00 07/16/16 08:36 O2 Saturation 93% (92-99) Arterial Blood pH 7.19 (7.35-7.45) Arterial Blood pCO2 at Patient Temp 45mmHg (35-46) Arterial Blood pO2 at Patient Temp 88mmHg (65-108) Arterial Blood HCO3 17mmol/L (21-28) Arterial Blood Base Excess -11mmol/L (-3-3) Glucose (Fingerstick) 348mg/dL (70-99) Laboratory Tests Test 07/15/16 10:16 07/15/16 10:30 07/15/16 11:40 07/15/16 16:15 Glucose (Fingerstick) 146mg/dL (70-99) 280mg/dL (70-99) Troponin I Quantitative < 0.017ng/mL (0.000-0.055) O2 Saturation 100% (92-99) Arterial Blood pH 6.93 (7.35-7.45) Arterial Blood pCO2 at Patient Temp 88mmHg (35-46) Arterial Blood pO2 at Patient Temp > 503mmHg (65-108) Arterial Blood HCO3 18mmol/L (21-28) Arterial Blood Base Excess -15mmol/L (-3-3) FiO2 100 Test 07/15/16 17:04 07/15/16 21:35 07/15/16 23:55 07/16/16 02:15 Bedside Creatinine 1.3mg/dL (0.7-1.3) Glucose (Fingerstick) 302mg/dL (70-99) Lactic Acid Level 0.9mmol/L (0.4-2.0) Heparin Anti-Xa Act, Unfractionated 1.07IU/mL (0.30-0.70) Test 07/16/16 03:55 07/16/16 07:17 07/16/16 07:55 07/16/16 08:00 White Blood Count 12.0x10^3/uL (4.0-11.0) Red Blood Count 3.08x10^6/uL (4.30-5.70) Hemoglobin 8.2g/dL (13.0-17.5) Hematocrit 26.5% (39.0-53.0) Mean Corpuscular Volume 86fL (79-100) Mean Corpuscular Hemoglobin 27pg (25-35) Mean Corpuscular Hemoglobin Concent 31g/dL (31-37) Red Cell Distribution Width 14.4% (11.5-14.5) Platelet Count 390x10^3/uL (140-400) Neutrophils (%) (Auto) 69% (31-73) Lymphocytes (%) (Auto) 19% (24-48) Monocytes (%) (Auto) 12% (0-9) Eosinophils (%) (Auto) 0% (0-3) Basophils (%) (Auto) 1% (0-3) Neutrophils # (Auto) 8.3x10^3uL (1.8-7.7) Lymphocytes # (Auto) 2.3x10^3/uL (1.0-4.8) Monocytes # (Auto) 1.4x10^3/uL (0.0-1.1) Eosinophils # (Auto) 0.0x10^3/uL (0.0-0.7) Basophils # (Auto) 0.1x10^3/uL (0.0-0.2) Sodium Level 142mmol/L (136-145) Potassium Level 5.8mmol/L (3.5-5.1) Chloride Level 109mmol/L (98-107) Carbon Dioxide Level 24mmol/L (21-32) Anion Gap 9 (6-14) Blood Urea Nitrogen 66mg/dL (8-26) Creatinine 2.0mg/dL (0.7-1.3) Estimated GFR (Cockcroft-Gault) 39.8 BUN/Creatinine Ratio 33 (6-20) Glucose Level 437mg/dL (70-99) Calcium Level 8.0mg/dL (8.5-10.1) Phosphorus Level 6.9mg/dL (2.6-4.7) Magnesium Level 2.4mg/dL (1.8-2.4) Total Bilirubin 0.3mg/dL (0.2-1.0) Aspartate Amino Transf (AST/SGOT) 219U/L (15-37) Alanine Aminotransferase (ALT/SGPT) 227U/L (16-63) Alkaline Phosphatase 225U/L (46-116) Total Protein 5.4g/dL (6.4-8.2) Albumin 1.6g/dL (3.4-5.0) Albumin/Globulin Ratio 0.4 (1.0-1.7) Glucose (Fingerstick) 356mg/dL (70-99) Heparin Anti-Xa Act, Unfractionated > 1.10IU/mL (0.30-0.70) O2 Saturation 93% (92-99) Arterial Blood pH 7.19 (7.35-7.45) Arterial Blood pCO2 at Patient Temp 45mmHg (35-46) Arterial Blood pO2 at Patient Temp 88mmHg (65-108) Arterial Blood HCO3 17mmol/L (21-28) Arterial Blood Base Excess -11mmol/L (-3-3) Test 07/16/16 08:36 Glucose (Fingerstick) 348mg/dL (70-99) Microbiology 07/14/16 Urine Culture - Preliminary, Resulted 07/14/16 Urine Culture Result 1 (MARÍA) - Preliminary, Resulted Medications Current Medications Albuterol/ Ipratropium (Duoneb) 6 ml 1X ONCE NEB Last administered on 12:34; Start 07/12/16 at 12:30; Stop 07/12/16 at 12:31; Status DC Prednisone 60 mg 60 mg 1X ONCE PO Last administered on 07/12/16 12:40; Start 07/12/16 at 12:30; Stop 07/12/16 at 12:31; Status DC Sodium Chloride (Iv Sodium Chloride 0.9% 1000ml Bag) 1,000 ml @ 1,000 mls/hr 1X ONCE IV Last administered on 07/12/16 13:12; Start 07/12/16 at 13:15; Stop 07/12/16 at 14:14; Status DC Insulin Human Regular (Novolin R Vial) 10 unit 1X ONCE IV Last administered on 07/12/16 13:16; Start 07/12/16 at 13:15; Stop 07/12/16 at 13:16; Status DC Diphenhydramine HCl (Benadryl) 50 mg STK-MED ONCE .ROUTE ; Start 07/12/16 at 14: 55; Stop 07/12/16 at 14:56; Status DC Diphenhydramine HCl (Benadryl) 50 mg 1X ONCE IVP Last administered on 15:15; Start 07/12/16 at 15:15; Stop 07/12/16 at 15:16; Status DC Atorvastatin Calcium (Lipitor) 40 mg HS PO ; Start 07/12/16 at 21:00 Diltiazem HCl (Cardizem 24hr Cd) 240 mg DAILY PO ; Start 07/12/16 at 16:30; Stop 07/13/16 at 17:18; Status DC Insulin Aspart (Novolog) 10 units TIDAC SQ ; Start 07/12/16 at 16:30; Stop 07/12 at 16:30; Status DC Insulin Detemir (Levemir) 20 units QHS SQ ; Start 07/12/16 at 21:00; Stop at 21:00; Status DC Promethazine HCl/ Codeine (Phenergan With Codeine) 5 ml QID PO ; Start 07/12/16 at 17:00; Stop 07/13/16 at 17:18; Status DC Non-Formulary Medication 2 puff BID IH ; Start 07/12/16 at 21:00; Status UNV Non-Formulary Medication 2.5 gm DAILY IH ; Start 07/13/16 at 09:00; Status UNV Budesonide (Pulmicort) 0.5 mg RTBID NEB Last administered on 07/13/16 07:30; Start 07/12/16 at 20:00; Stop 07/13/16 at 11:27; Status DC Albuterol/ Ipratropium (Duoneb) 3 ml RTQID NEB Last administered on 07/16/16 07:47; Start 07/12/16 at 20:00; Stop 07/16/16 at 08:38; Status DC Methylprednisolone Sodium Succinate (Solu-Medrol 40mg Vial) 60 mg 1X ONCE IV Last administered on 07/12/16 16:06; Start 07/12/16 at 16:30; Stop 07/12/16 at 16:31; Status DC Methylprednisolone Sodium Succinate (Solu-Medrol 40mg Vial) 60 mg DAILY IV ; Start 07/13/16 at 09:00; Stop 07/13/16 at 09:00; Status DC Pantoprazole Sodium (Protonix Vial) 40 mg DAILY IVP Last administered on 08:43; Start 07/13/16 at 09:00 Diphenhydramine HCl 25 mg 25 mg PRN Q6HRS PRN IVP ANAPHYLAXIS Last administered on 07/12/16 16:06; Start 07/12/16 at 16:00 Sodium Chloride (Iv Sodium Chloride 0.9% 1000ml Bag) 1,000 ml @ 150 mls/hr Q6H40M IV Last administered on 07/14/16 01:21; Start 07/12/16 at 16:30; Stop 07/14/16 at 09:31; Status DC Albuterol/ Ipratropium (Duoneb) 3 ml QID NEB ; Start 07/12/16 at 17:00; Status UNV Albuterol Sulfate (Ventolin Neb Soln) 2.5 mg PRN Q2HR PRN NEB SHORTNESS OF BREATH Last administered on 07/15/16 04:15; Start 07/12/16 at 16:00 Insulin Aspart (Novolog) 0-9 UNITS QID SQ Last administered on 07/14/16 08:37 ; Start 07/12/16 at 17:00; Stop 07/14/16 at 09:31; Status DC Dextrose 12.5 gm PRN Q15MIN PRN IV SEE COMMENTS; Start 07/12/16 at 16:00; Stop 07/15/16 at 12:46; Status DC Insulin Detemir (Levemir) 15 units QHS SQ ; Start 07/12/16 at 21:00; Stop at 21:00; Status DC Enoxaparin Sodium (Lovenox 40mg Syringe) 40 mg DAILY SQ Last administered on 08:54; Start 07/12/16 at 16:30; Stop 07/15/16 at 14:28; Status DC Insulin Detemir (Levemir) 20 units QHS SQ Last administered on 07/12/16 23:49 ; Start 07/12/16 at 21:00; Stop 07/13/16 at 15:18; Status DC Succinylcholine Chloride 200 mg 200 mg STK-MED ONCE .ROUTE ; Start 07/12/16 at 17:46; Stop 07/12/16 at 17:47; Status DC Propofol (Diprivan) 100 ml @ As Directed STK-MED ONCE IV ; Start 07/12/16 at 17 :46; Stop 07/12/16 at 17:47; Status DC Lidocaine HCl 100 mg STK-MED ONCE .ROUTE ; Start 07/12/16 at 18:02; Stop at 18:03; Status DC Ketamine HCl 500 mg 1X ONCE IV ; Start 07/12/16 at 18:30; Stop 07/12/16 at 18: 31; Status DC Midazolam HCl (Versed) 5 mg STK-MED ONCE .ROUTE ; Start 07/12/16 at 18:14; Stop 07/12/16 at 18:15; Status DC Midazolam HCl (Versed) 2 mg 1X ONCE IV ; Start 07/12/16 at 18:30; Stop at 18:31; Status DC Glycopyrrolate (Robinul) 1 mg 1X ONCE IV ; Start 07/12/16 at 18:30; Stop at 18:31; Status DC Oxymetazoline HCl (Afrin) 2 spray 1X ONCE NS ; Start 07/12/16 at 18:30; Stop at 18:31; Status DC Lidocaine HCl 30 ml STK-MED ONCE .ROUTE ; Start 07/12/16 at 18:19; Stop at 18:20; Status DC Vecuronium [place] 6 mg 6 mg PRN Q4HRS PRN IV ANXIETY / AGITATION Last administered on 07/12/16 19:55; Start 07/12/16 at 19:00; Stop 07/15/16 at 07:58 ; Status DC Propofol (Diprivan) 100 ml @ 0 mls/hr CONT PRN IV SEE I/O RECORD Last administered on 07/14/16 13:42; Start 07/12/16 at 19:00; Stop 07/15/16 at 07:58 ; Status DC Insulin Aspart 10 units 10 units 1X ONCE SQ Last administered on 07/12/16 19: 41; Start 07/12/16 at 19:45; Stop 07/12/16 at 19:46; Status DC Vecuronium [place] 100 mg/ Dextrose 100 ml @ 0 mls/hr CONT PRN IV SEE I/O RECORD Last administered on 07/13/16 20:48; Start 07/12/16 at 21:00; Stop 07/14 at 09:31; Status DC Fentanyl Citrate (Fentanyl 600 Mcg/30 ml [employer]) 30 ml @ 0 mls/hr CONT PRN IV PROTOCOL Last administered on 07/14/16 09:33; Start 07/12/16 at 22:00; Stop at 07:58; Status DC Chlorhexidine Gluconate (Peridex) 15 ml BID MM Last administered on 07/15/16 21:28; Start 07/13/16 at 09:00 Methylprednisolone Sodium Succinate (Solu-Medrol 125mg Vial) 125 mg BID IV Last administered on 07/14/16 21:02; Start 07/13/16 at 09:00; Stop 07/15/16 at 07:58; Status DC Rocuronium [place] (Zemuron) 50 mg STK-MED ONCE .ROUTE ; Start 07/12/16 at 15:00 ; Stop 07/13/16 at 08:54; Status DC Glycopyrrolate (Robinul) 1 mg STK-MED ONCE .ROUTE ; Start 07/12/16 at 15:00; Stop 07/13/16 at 08:54; Status DC Lidocaine HCl 30 ml STK-MED ONCE .ROUTE ; Start 07/12/16 at 18:00; Stop at 09:05; Status DC Midazolam HCl (Versed) 5 mg STK-MED ONCE .ROUTE ; Start 07/12/16 at 18:00; Stop 07/13/16 at 09:05; Status DC Propofol (Diprivan) 1,000 mg STK-MED ONCE IV ; Start 07/12/16 at 18:00; Stop at 09:05; Status DC Succinylcholine Chloride (Anectine) 200 mg STK-MED ONCE .ROUTE ; Start 07/12/16 at 18:00; Stop 07/13/16 at 09:05; Status DC Multi-Ingred Cream/Lotion/Oil/ Oint (Artificial Tears Eye Oint) 1 margie PRN Q1HR PRN OU DRY EYE Last administered on 07/13/16 15:45; Start 07/13/16 at 11:00 Ketamine HCl 500 mg STK-MED ONCE .ROUTE ; Start 07/12/16 at 18:30; Stop at 12:05; Status DC Insulin Aspart (Novolog) 10 units 1X STAT SQ Last administered on 07/13/16 12 :36; Start 07/13/16 at 12:17; Stop 07/13/16 at 12:20; Status DC Insulin Aspart (Novolog) 10 units 1X ONCE SQ Last administered on 07/13/16 14 :31; Start 07/13/16 at 14:30; Stop 07/13/16 at 14:31; Status DC Insulin Detemir (Levemir) 40 units QHS SQ Last administered on 07/13/16 20:50 ; Start 07/13/16 at 21:00; Stop 07/14/16 at 09:31; Status DC Benzocaine (Hurricaine One) 1 spray STK-MED ONCE .ROUTE ; Start 07/12/16 at 12: 00; Stop 07/13/16 at 16:00; Status DC Lidocaine HCl 5 margie 5 margie STK-MED ONCE TP ; Start 07/12/16 at 12:00; Stop at 16:00; Status DC Insulin Human Regular/Sodium Chloride (Novolin R Vial/ Iv Normal Saline 150ml) 151.5 ml @ 0 mls/hr CONT PRN IV SEE I/O RECORD Last administered on 07/14/16 10:01; Start 07/14/16 at 09:30; Stop 07/15/16 at 07:58; Status DC Info 1 each 1 each PRN DAILY PRN MC SEE COMMENTS Last administered on 12:47; Start 07/14/16 at 09:30 Magnesium Sulfate/ Dextrose 50 ml @ 25 mls/hr PRN DAILY PRN IV for Mag < 1.7 on am labs; Start 07/14/16 at 11:15; Stop 07/15/16 at 07:58; Status DC Sodium Chloride 500 ml @ 500 mls/hr QID PRN IV UO< 30cc/hr over previous 6hrs ; Start 07/14/16 at 11:15; Stop 07/14/16 at 11:26; Status DC Sodium Chloride 500 ml @ 500 mls/hr PRN QID PRN IV UO< 30cc/hr over previous 6hrs; Start 07/14/16 at 11:26 Ceftriaxone Sodium 1 gm/ Sodium Chloride 50 ml @ 100 mls/hr Q24H IV Last administered on 07/15/16 15:25; Start 07/14/16 at 12:00; Stop 07/20/16 at 12:29 Sodium Chloride/ Magnesium Sulfate/ Calcium Gluconate/ Multivitamins/ Chromium/ Copper/ Manganese/Seleni/ Zn/Total Parenteral Nutrition/Amino Acids/Dextrose ( Sodium Chloride/ Infuvite Adult/ Multitrace-5 Conc/ Tpn - Tpn Fluid/ Trophamine / Dextrose 70%-Water Iv Soln) 1,512 ml @ 63 mls/hr TPN CONT IV Last administered on 07/14/16 22:29; Start 07/14/16 at 22:00; Stop 07/15/16 at 21:59 ; Status DC Hydralazine HCl (Apresoline) 10 mg PRN Q4HRS PRN IVP ELEVATED BP, SEE COMMENTS ; Start 07/14/16 at 22:30 Methylprednisolone Sodium Succinate (Solu-Medrol 125mg Vial) 125 mg DAILY IV Last administered on 07/15/16 08:55; Start 07/15/16 at 09:00; Stop 07/16/16 at 08:35; Status DC Insulin Aspart (Novolog) 0-9 UNITS TIDWMEALS SQ Last administered on 07/15/16 16:16; Start 07/15/16 at 08:00; Stop 07/16/16 at 07:16; Status DC Dextrose 12.5 gm PRN Q15MIN PRN IV SEE COMMENTS; Start 07/15/16 at 08:00 Insulin Detemir (Levemir) 20 units QHS SQ Last administered on 07/15/16 21:48 ; Start 07/15/16 at 21:00; Stop 07/16/16 at 07:16; Status DC Insulin Aspart (Novolog) 10 units TIDAC SQ ; Start 07/15/16 at 11:30; Stop 07/16 at 07:16; Status DC Sodium Polystyrene Sulfonate (Kayexalate) 30 gm 1X ONCE PO ; Start 07/15/16 at 08:00; Stop 07/15/16 at 08:08; Status DC Hydrochlorothiazide (Microzide) 12.5 mg DAILY PO ; Start 07/15/16 at 09:00; Stop 07/16/16 at 07:39; Status DC Isosorbide Mononitrate (Imdur) 120 mg DAILY PO ; Start 07/15/16 at 09:00; Stop 07/15/16 at 09:00; Status DC Diltiazem HCl (Cardizem 24hr Cd) 240 mg DAILY PO ; Start 07/15/16 at 09:00; Stop 07/16/16 at 07:39; Status DC Guaifenesin (Mucinex) 600 mg BID PO ; Start 07/15/16 at 09:00; Stop 07/16/16 at 07:39; Status DC Mupirocin (Bactroban) 1 margie BID NS Last administered on 07/15/16 21:28; Start 07/15/16 at 09:00 Isosorbide Mononitrate (Imdur) 120 mg DAILY PO ; Start 07/15/16 at 09:00; Stop 07/16/16 at 07:39; Status DC Sodium Bicarbonate 50 meq 1X ONCE IV Last administered on 07/15/16 15:22; Start 07/15/16 at 10:45; Stop 07/15/16 at 10:46; Status DC Sodium Bicarbonate 50 meq 50 meq STK-MED ONCE .ROUTE ; Start 07/15/16 at 10:34; Stop 07/15/16 at 10:35; Status DC Dopamine HCl/ Dextrose 250 ml @ As Directed STK-MED ONCE IV ; Start 07/15/16 at 10:37; Stop 07/15/16 at 10:38; Status DC Midazolam HCl (Versed) 5 mg STK-MED ONCE .ROUTE ; Start 07/15/16 at 10:41; Stop 07/15/16 at 10:42; Status DC Iohexol 100 ml 100 ml STK-MED ONCE .ROUTE ; Start 07/15/16 at 10:45; Stop at 10:46; Status DC Heparin Sodium/ Sodium Chloride 1,500 ml @ As Directed STK-MED ONCE .ROUTE ; Start 07/15/16 at 10:45; Stop 07/15/16 at 10:46; Status DC Lidocaine HCl 20 ml 20 ml STK-MED ONCE .ROUTE ; Start 07/15/16 at 10:45; Stop at 10:46; Status DC Dopamine HCl/ Dextrose 250 ml @ 16.255 mls/ hr CONT PRN IV SEE I/O RECORD Last administered on 07/16/16 08:42; Start 07/15/16 at 11:00 Sodium Chloride 1,000 ml @ 1,000 mls/hr 1X ONCE IV Last administered on 11:00; Start 07/15/16 at 11:00; Stop 07/15/16 at 11:59; Status DC Norepinephrine Bitartrate/Sodium Chloride (Levophed Vial/ Iv Sodium Chloride 0.9 % 250ml) 258 ml @ 0 mls/hr CONT PRN IV SEE I/O RECORD; Start 07/15/16 at 11:00 Midazolam HCl (Versed) 5 mg STK-MED ONCE .ROUTE ; Start 07/15/16 at 10:54; Stop 07/15/16 at 10:55; Status DC Fentanyl Citrate (Fentanyl 2ml Vial) 100 mcg STK-MED ONCE .ROUTE ; Start at 11:02; Stop 07/15/16 at 11:03; Status DC Vecuronium Sterling 10 mg 10 mg STK-MED ONCE IV ; Start 07/15/16 at 11:03; Stop 07/15/16 at 11:04; Status DC Midazolam HCl (Versed 100mg/ 100ml Premix) 100 ml @ As Directed STK-MED ONCE IV ; Start 07/15/16 at 11:03; Stop 07/15/16 at 11:04; Status DC Iohexol (Omnipaque 300 Mg/ml) 112 ml 1X ONCE IART Last administered on 11:56; Start 07/15/16 at 12:00; Stop 07/15/16 at 12:01; Status DC Lidocaine HCl 10 ml 1X ONCE IJ Last administered on 07/15/16 11:57; Start at 12:00; Stop 07/15/16 at 12:01; Status DC Heparin Sodium/ Sodium Chloride 1000 unit 1,000 unit 1X ONCE IART ; Start 07/15 at 12:00; Stop 07/15/16 at 12:01; Status DC Sodium Chloride/ Magnesium Sulfate/ Calcium Gluconate/ Multivitamins/ Chromium/ Copper/ Manganese/Seleni/ Zn/Total Parenteral Nutrition/Amino Acids/Dextrose ( Sodium Chloride/ Infuvite Adult/ Multitrace-5 Conc/ Tpn - Tpn Fluid/ Trophamine / Dextrose 70%-Water Iv Soln) 1,512 ml @ 63 mls/hr TPN CONT IV Last administered on 07/15/16 21:27; Start 07/15/16 at 22:00; Stop 07/16/16 at 21:59 Iohexol (Omnipaque 300 Mg/ml) 75 ml 1X ONCE IV Last administered on 07/15/16 13:43; Start 07/15/16 at 13:15; Stop 07/15/16 at 13:16; Status DC Info (Do NOT chart on this entry -- for MONITORING) 1 each PRN DAILY PRN MC SEE COMMENTS; Start 07/15/16 at 13:15; Stop 07/17/16 at 13:14 Heparin Sodium (Porcine) 7000 unit 7,000 unit 1X ONCE IV Last administered on 07/15/16 15:27; Start 07/15/16 at 14:45; Stop 07/15/16 at 14:46; Status DC Heparin Sodium/ Dextrose 500 ml @ 0 mls/hr CONT PRN IV SEE I/O RECORD Last administered on 07/15/16 15:29; Start 07/15/16 at 14:30 Heparin Sodium (Porcine) 2,600 unit PRN Q6HRS PRN IV FOR UFH LEVEL LESS THAN 0.2; Start 07/15/16 at 14:30 Heparin Sodium (Porcine) 1,300 unit PRN Q6HRS PRN IV FOR UFH LEVEL 0.2 - 0.29; Start 07/15/16 at 14:30 Warfarin Sodium (Coumadin Per Pharmacy) 1 each PRN DAILY PRN MC PER PROTOCOL; Start 07/15/16 at 14:30; Stop 07/15/16 at 14:30; Status DC Sodium Bicarbonate 50 meq 50 meq 1X ONCE IV Last administered on 07/15/16 16: 30; Start 07/15/16 at 16:30; Stop 07/15/16 at 16:34; Status DC Alteplase, Recombinant (Activase) 100 ml @ 50 mls/hr 1X ONCE IV Last administered on 07/15/16 17:30; Start 07/15/16 at 17:30; Stop 07/15/16 at 19:29 ; Status DC Fentanyl Citrate (Fentanyl 2ml Vial) 25 mcg PRN Q1HR PRN IV COMM; Start at 22:30; Stop 07/16/16 at 07:17; Status DC Fentanyl Citrate (Fentanyl 2ml Vial) 50 mcg PRN Q1HR PRN IV COMM Last administered on 07/16/16 05:30; Start 07/15/16 at 22:30; Stop 07/16/16 at 07:17 ; Status DC Scopolamine (Transderm-Scop) 1 patch Q3DAYS TD ; Start 07/18/16 at 09:00 Scopolamine 1 patch 1 patch ONCE ONCE TD ; Start 07/15/16 at 23:30; Stop at 23:31; Status DC Sodium Chloride 1,000 ml @ 1,000 mls/hr 1X ONCE IV Last administered on 02:38; Start 07/16/16 at 01:00; Stop 07/16/16 at 01:59; Status DC Midazolam HCl 100 ml @ As Directed STK-MED ONCE IV ; Start 07/16/16 at 01:00; Stop 07/16/16 at 01:01; Status DC Midazolam HCl 100 ml @ 0 mls/hr CONT PRN IV SEE I/O RECORD Last administered on 07/16/16 02:38; Start 07/16/16 at 01:15 Vasopressin 40 unit/Dextrose 102 ml @ 6 mls/hr CONT PRN IV SEE I/O RECORD; Start 07/16/16 at 05:00 Insulin Human Regular 150 unit/ Sodium Chloride 151.5 ml @ 0 mls/hr CONT PRN IV SEE I/O RECORD; Start 07/16/16 at 05:00 Fentanyl Citrate (Fentanyl 600 Mcg/30 ml [employer]) 30 ml @ 0 mls/hr CONT PRN IV PROTOCOL Last administered on 07/16/16 08:03; Start 07/16/16 at 07:15 Vecuronium Sterling (Norcuron Bolus) 10 mg STK-MED ONCE IV ; Start 07/15/16 at 11 :00; Stop 07/16/16 at 08:06; Status DC Fentanyl Citrate (Fentanyl 2ml Vial) 100 mcg STK-MED ONCE .ROUTE ; Start at 11:00; Stop 07/16/16 at 08:06; Status DC Midazolam HCl (Versed) 10 mg STK-MED ONCE .ROUTE ; Start 07/15/16 at 11:00; Stop 07/16/16 at 08:06; Status DC Dopamine HCl/ Dextrose 400 mg STK-MED ONCE IV ; Start 07/15/16 at 11:00; Stop at 08:06; Status DC Sodium Bicarbonate 50 meq STK-MED ONCE .ROUTE ; Start 07/15/16 at 11:00; Stop at 08:06; Status DC Hydrocortisone Sodium Succinate (Solu-Cortef) 100 mg Q8HRS IV Last administered on 07/16/16 08:43; Start 07/16/16 at 09:00 Sodium Polystyrene Sulfonate 30 gm 30 gm 1X ONCE PO Last administered on 08:41; Start 07/16/16 at 08:30; Stop 07/16/16 at 08:34; Status DC Albumin Human (Plasmanate) 500 ml @ 125 mls/hr PRN Q6HRS PRN IV for CVP < 10; MAP < 65; Start 07/16/16 at 08:30 Sodium Bicarbonate 50 meq 1X ONCE IV Last administered on 07/16/16 08:41; Start 07/16/16 at 08:45; Stop 07/16/16 at 08:46; Status DC Info (Anti-Coagulation Monitoring By Pharmacy) 1 each PRN DAILY PRN MC SEE COMMENTS; Start 07/16/16 at 08:45 Ipratropium [place] (Atrovent) 0.5 mg RTQID NEB ; Start 07/16/16 at 12:00 Active Scripts Active Levemir Flextouch (Insulin Detemir) 100 Unit/1 Ml Insuln.pen 20 Units SQ QHS 30 Days Novolog Flexpen (Insulin Aspart) 100 Unit/1 Ml Insuln.pen 10 Units SQ TIDAC 30 Days Reported Advair 100-50 Diskus (Fluticasone/Salmeterol) 1 Each Disk.w.dev 1 Puff IH BID Spiriva Respimat (Tiotropium [place]) 4 Gm Mist.inhal 2.5 Gm IH DAILY Symbicort 160-4.5 Mcg Inhaler (Budesonide/Formoterol Fumarate) 10.2 Gm Hfa.aer.ad 2 Puff IH BID Atorvastatin Calcium 20 Mg Tablet 20 Mg PO HS Lisinopril-Hctz 10-12.5 Mg Tab (Lisinopril/Hydrochlorothiazide) 1 Each Tablet 1 Tab PO DAILY Isosorbide Mononitrate Er (Isosorbide Mononitrate) 120 Mg Tab.er.24h 120 Mg PO DAILY Novolin N (Nph, Human Insulin Isophane) 100 Unit/1 Ml Vial 0 SQ Promethazine-Codeine Syrup (Promethazine Hcl/Codeine) 118 Ml Syrup 5 Ml PO Q4- 6HRS Diltiazem 24HR Cd (Diltiazem Hcl) 240 Mg Cap.er.24h 240 Mg PO DAILY NITROGLYCERIN SubLingual (Nitroglycerin) 0.4 Mg Tab.subl 0.4 Mg SL PRN Q5MIN PRN Atorvastatin Calcium 40 Mg Tablet 40 Mg PO HS Vitals/I & O Vital Sign - Last 24 Hours 07/15/16 07/15/16 07/15/16 07/15/16 09:00 10:58 11:52 12:00 Pulse 57 122 Resp 24 B/P 157/86 138/79 Pulse Ox 95 100 100 O2 Delivery Nasal Cannula Ventilator Ventilator Mechanical Ventilator O2 Flow Rate 3.0 07/15/16 07/15/16 07/15/16 07/15/16 12:30 12:44 14:00 14:30 Pulse 124 114 Resp 26 25 B/P 126/79 150/84 Pulse Ox 96 100 100 54 O2 Delivery Ventilator Ventilator Ventilator Ventilator 07/15/16 07/15/16 07/15/16 07/15/16 16:00 16:30 17:26 17:30 Pulse 102 Resp 25 B/P 116/65 Pulse Ox 92 100 100 O2 Delivery Mechanical Ventilator Ventilator Ventilator Ventilator 07/15/16 07/15/16 07/15/16 07/15/16 17:30 18:00 19:00 19:15 Temp 98.7 99.3 98.7 99.3 Pulse 138 130 140 Resp 25 21 21 B/P 153/78 124/64 144/62 137/59 108/65 Pulse Ox 78 98 98 O2 Delivery Ventilator Ventilator Ventilator 07/15/16 07/15/16 07/15/16 07/15/16 19:30 19:35 19:45 20:00 Pulse 134 134 Resp 23 B/P 144/58 124/52 104/50 Pulse Ox 95 O2 Delivery Ventilator 07/15/16 07/15/16 07/15/16 07/15/16 20:00 20:00 20:15 21:00 Pulse 142 Resp 21 B/P 89/45 106/46 Pulse Ox 98 O2 Delivery Ventilator Mechanical Ventilator Ventilator 07/15/16 07/15/16 07/15/16 07/15/16 21:15 22:00 22:00 22:00 Temp 98.7 98.7 Pulse 136 Resp 22 B/P 92/67 106/64 Pulse Ox 100 99 O2 Delivery Ventilator Ventilator Ventilator 07/15/16 07/16/16 07/16/16 07/16/16 23:00 00:00 00:00 00:12 Temp 98.8 98.8 Pulse 138 138 Resp 21 22 B/P 103/70 97/61 92/56 Pulse Ox 98 100 O2 Delivery Ventilator Mechanical Ventilator Ventilator 07/16/16 07/16/16 07/16/16 07/16/16 01:00 02:00 02:39 03:00 Temp 98.2 98.2 Pulse 133 129 134 Resp 21 21 21 B/P 105/64 109/60 101/58 104/65 Pulse Ox 98 99 100 O2 Delivery Ventilator Venturi Mask Ventilator Venturi Mask 07/16/16 07/16/16 07/16/16 07/16/16 03:18 04:00 04:00 05:00 Temp 98.0 98.0 Pulse 137 138 Resp 21 21 B/P 99/63 99/63 98/68 92/67 Pulse Ox 100 98 99 O2 Delivery Ventilator Ventilator Mechanical Ventilator Ventilator 07/16/16 07/16/16 07/16/16 07/16/16 05:31 06:00 07:00 07:50 Pulse 132 129 Resp 21 26 B/P 83/59 81/52 Pulse Ox 97 100 100 97 O2 Delivery Ventilator Ventilator Ventilator Ventilator 07/16/16 07/16/16 08:00 08:03 Temp 98.4 98.4 Pulse 128 Resp 25 B/P 89/53 Pulse Ox 95 97 O2 Delivery Ventilator O2 Flow Rate 3.0 Intake and Output 07/15/16 07/15/16 07/16/16 15:00 23:00 07:00 Intake Total 180 ml 1060 ml 549 ml Output Total 320 ml 535 ml 185 ml Balance -140 ml 525 ml 364 ml BALA BRYANT MD Jul 16, 2016 08:59
[2016-07-16] MEDS: MUPIROCIN 2 % NASAL OINTMENT 22GM TUBE. NS SCH ×2 (09:00→20:49)
[2016-07-16] MEDS: CHLORHEXIDINE 0.12% 15 ML MOUTHWASH. MM SCH ×2 (09:00→20:10)
[2016-07-16] MEDS ORDERED: LIDOCAINE 1% / SOD BICARB 8.4% 20 ML VIAL. IJ ONE (09:15)
--- NOTE | 2016-07-16 09:43 | RAD ---
Indication respiratory failure. A single view of the chest was obtained and is compared to a study one day earlier. Heart and pulmonary vessels are similar. Slight blunting of the right costophrenic angle is noted similar to the previous exam. A significant change in the appearance of the chest is not seen. Endotracheal tube is well above the herson. Right IJ catheter is noted. A Dobbhoff feeding tube is additionally seen although the tip of the feeding tube is not apparent on this exam. IMPRESSION: No significant change in the appearance of the chest.
--- NOTE | 2016-07-16 10:33 | PDOC ---
JESSICA RINCON SUPERIOR COURT CLERK 07/16/16 1033: SURGICAL PROGRESS NOTE Subjective not seen, IR bedside procedure in progress ET in place, vent Vital Signs Vital Signs Date Time Temp Pulse Resp B/P Pulse Ox O2 Delivery O2 Flow Rate FiO2 07/16/16 10:00 133 25 116/59 95 Ventilator 07/16/16 08:33 3.0 07/16/16 08:00 98.4 98.4 I&O Intake and Output 07/16/16 07:00 Intake Total 1789 ml Output Total 1040 ml Balance 749 ml IV Total 1549 ml Other 240 ml Output Urine Total 1040 ml Labs Laboratory Tests Test 07/14/16 11:12 07/14/16 12:40 07/14/16 13:00 07/14/16 13:02 Glucose (Fingerstick) 232mg/dL (70-99) 166mg/dL (70-99) Potassium Level 5.4mmol/L (3.5-5.1) Uric Acid 3.9mg/dL (3.5-7.2) Creatine Kinase 67U/L (39-308) Immunoglobulin [place]/Lambda Ratio 0.69 (0.26-1.65) Free [place] Light Chains 40.15mg/L (3.30-19.40) Free [place] Light Chains 58.21mg/L (5.71-26.30) Urine Collection Type Unknown Urine Color Yellow Urine Clarity Cloudy Urine pH 5.0 Urine Specific [place] 1.020 Urine Protein Negativemg/dL (NEG-TRACE) Urine Glucose (UA) Negativemg/dL (NEG) Urine Ketones (Stick) Negativemg/dL (NEG) Urine Blood Negative (NEG) Urine Nitrite Negative (NEG) Urine Bilirubin Negative (NEG) Urine Urobilinogen Dipstick 0.2mg/dL (0.2 mg/dL) Urine Leukocyte Esterase Small (NEG) Urine RBC Occ/HPF (0-2) Urine WBC 5-10/HPF (0-4) Urine Bacteria Few/HPF (0-FEW) Urine Hyaline Casts Few/HPF Urine Mucus Mod/LPF Urine Yeast Present/HPF Urine Random Sodium <20mmol/L (Not Estab.) Test 07/14/16 14:06 07/14/16 15:14 07/14/16 16:05 07/14/16 16:19 Glucose (Fingerstick) 124mg/dL (70-99) 89mg/dL (70-99) 84mg/dL (70-99) O2 Saturation 92% (92-99) Arterial Blood pH 7.31 (7.35-7.45) Arterial Blood pCO2 at Patient Temp 49mmHg (35-46) Arterial Blood pO2 at Patient Temp 67mmHg (65-108) Arterial Blood HCO3 24mmol/L (21-28) Arterial Blood Base Excess -2mmol/L (-3-3) FiO2 3 lpm nc Test 07/14/16 17:39 07/14/16 18:47 07/14/16 19:59 07/14/16 21:03 Glucose (Fingerstick) 82mg/dL (70-99) 90mg/dL (70-99) 82mg/dL (70-99) 93mg/dL (70-99) Test 07/14/16 22:18 07/14/16 23:28 07/15/16 00:32 07/15/16 01:33 Glucose (Fingerstick) 87mg/dL (70-99) 137mg/dL (70-99) 168mg/dL (70-99) 189mg/dL (70-99) Test 07/15/16 02:30 07/15/16 03:32 07/15/16 04:36 07/15/16 05:40 Glucose (Fingerstick) 176mg/dL (70-99) 146mg/dL (70-99) 120mg/dL (70-99) 134mg/dL (70-99) Test 07/15/16 05:45 07/15/16 06:32 07/15/16 07:40 07/15/16 08:45 White Blood Count 10.9x10^3/uL (4.0-11.0) Red Blood Count 3.46x10^6/uL (4.30-5.70) Hemoglobin 9.6g/dL (13.0-17.5) Hematocrit 29.7% (39.0-53.0) Mean Corpuscular Volume 86fL (79-100) Mean Corpuscular Hemoglobin 28pg (25-35) Mean Corpuscular Hemoglobin Concent 32g/dL (31-37) Red Cell Distribution Width 14.3% (11.5-14.5) Platelet Count 428x10^3/uL (140-400) Neutrophils (%) (Auto) 86% (31-73) Lymphocytes (%) (Auto) 5% (24-48) Monocytes (%) (Auto) 8% (0-9) Eosinophils (%) (Auto) 0% (0-3) Basophils (%) (Auto) 1% (0-3) Neutrophils # (Auto) 9.4x10^3uL (1.8-7.7) Lymphocytes # (Auto) 0.6x10^3/uL (1.0-4.8) Monocytes # (Auto) 0.9x10^3/uL (0.0-1.1) Eosinophils # (Auto) 0.0x10^3/uL (0.0-0.7) Basophils # (Auto) 0.1x10^3/uL (0.0-0.2) Segmented Neutrophils % 79% (35-66) Band Neutrophils % 5% (0-9) Lymphocytes % 9% (24-48) Monocytes % 7% (0-10) Platelet Estimate Increased (ADEQUATE) Sodium Level 141mmol/L (136-145) Potassium Level 5.2mmol/L (3.5-5.1) Chloride Level 106mmol/L (98-107) Carbon Dioxide Level 25mmol/L (21-32) Anion Gap 10 (6-14) Blood Urea Nitrogen 40mg/dL (8-26) Creatinine 1.1mg/dL (0.7-1.3) Estimated GFR (Cockcroft-Gault) 79.4 BUN/Creatinine Ratio 36 (6-20) Glucose Level 144mg/dL (70-99) Calcium Level 9.2mg/dL (8.5-10.1) Phosphorus Level 4.2mg/dL (2.6-4.7) Magnesium Level 2.5mg/dL (1.8-2.4) Total Bilirubin 0.2mg/dL (0.2-1.0) Aspartate Amino Transf (AST/SGOT) 16U/L (15-37) Alanine Aminotransferase (ALT/SGPT) 10U/L (16-63) Alkaline Phosphatase 69U/L (46-116) Total Protein 7.2g/dL (6.4-8.2) Albumin 2.1g/dL (3.4-5.0) Albumin/Globulin Ratio 0.4 (1.0-1.7) Triglycerides Level 135mg/dL (0-150) Free Thyroxine 0.76ng/dL (0.76-1.46) Free Triiodothyronine (T3) pg/mL 1.32pg/mL (2.18-3.98) Glucose (Fingerstick) 142mg/dL (70-99) 168mg/dL (70-99) 149mg/dL (70-99) Test 07/15/16 10:16 07/15/16 10:30 07/15/16 11:40 07/15/16 16:15 Glucose (Fingerstick) 146mg/dL (70-99) 280mg/dL (70-99) Troponin I Quantitative < 0.017ng/mL (0.000-0.055) O2 Saturation 100% (92-99) Arterial Blood pH 6.93 (7.35-7.45) Arterial Blood pCO2 at Patient Temp 88mmHg (35-46) Arterial Blood pO2 at Patient Temp > 503mmHg (65-108) Arterial Blood HCO3 18mmol/L (21-28) Arterial Blood Base Excess -15mmol/L (-3-3) FiO2 100 Test 07/15/16 17:04 07/15/16 21:35 07/15/16 23:55 07/16/16 02:15 Bedside Creatinine 1.3mg/dL (0.7-1.3) Glucose (Fingerstick) 302mg/dL (70-99) Lactic Acid Level 0.9mmol/L (0.4-2.0) Heparin Anti-Xa Act, Unfractionated 1.07IU/mL (0.30-0.70) Test 07/16/16 03:55 07/16/16 07:17 07/16/16 07:55 07/16/16 08:00 White Blood Count 12.0x10^3/uL (4.0-11.0) Red Blood Count 3.08x10^6/uL (4.30-5.70) Hemoglobin 8.2g/dL (13.0-17.5) Hematocrit 26.5% (39.0-53.0) Mean Corpuscular Volume 86fL (79-100) Mean Corpuscular Hemoglobin 27pg (25-35) Mean Corpuscular Hemoglobin Concent 31g/dL (31-37) Red Cell Distribution Width 14.4% (11.5-14.5) Platelet Count 390x10^3/uL (140-400) Neutrophils (%) (Auto) 69% (31-73) Lymphocytes (%) (Auto) 19% (24-48) Monocytes (%) (Auto) 12% (0-9) Eosinophils (%) (Auto) 0% (0-3) Basophils (%) (Auto) 1% (0-3) Neutrophils # (Auto) 8.3x10^3uL (1.8-7.7) Lymphocytes # (Auto) 2.3x10^3/uL (1.0-4.8) Monocytes # (Auto) 1.4x10^3/uL (0.0-1.1) Eosinophils # (Auto) 0.0x10^3/uL (0.0-0.7) Basophils # (Auto) 0.1x10^3/uL (0.0-0.2) Sodium Level 142mmol/L (136-145) Potassium Level 5.8mmol/L (3.5-5.1) Chloride Level 109mmol/L (98-107) Carbon Dioxide Level 24mmol/L (21-32) Anion Gap 9 (6-14) Blood Urea Nitrogen 66mg/dL (8-26) Creatinine 2.0mg/dL (0.7-1.3) Estimated GFR (Cockcroft-Gault) 39.8 BUN/Creatinine Ratio 33 (6-20) Glucose Level 437mg/dL (70-99) Calcium Level 8.0mg/dL (8.5-10.1) Phosphorus Level 6.9mg/dL (2.6-4.7) Magnesium Level 2.4mg/dL (1.8-2.4) Total Bilirubin 0.3mg/dL (0.2-1.0) Aspartate Amino Transf (AST/SGOT) 219U/L (15-37) Alanine Aminotransferase (ALT/SGPT) 227U/L (16-63) Alkaline Phosphatase 225U/L (46-116) Total Protein 5.4g/dL (6.4-8.2) Albumin 1.6g/dL (3.4-5.0) Albumin/Globulin Ratio 0.4 (1.0-1.7) Glucose (Fingerstick) 356mg/dL (70-99) Heparin Anti-Xa Act, Unfractionated > 1.10IU/mL (0.30-0.70) O2 Saturation 93% (92-99) Arterial Blood pH 7.19 (7.35-7.45) Arterial Blood pCO2 at Patient Temp 45mmHg (35-46) Arterial Blood pO2 at Patient Temp 88mmHg (65-108) Arterial Blood HCO3 17mmol/L (21-28) Arterial Blood Base Excess -11mmol/L (-3-3) Test 07/16/16 08:36 07/16/16 09:10 07/16/16 09:41 Glucose (Fingerstick) 348mg/dL (70-99) 300mg/dL (70-99) Lactic Acid Level 3.8mmol/L (0.4-2.0) Laboratory Tests Test 07/15/16 11:40 07/15/16 16:15 07/15/16 17:04 07/15/16 21:35 O2 Saturation 100% (92-99) Arterial Blood pH 6.93 (7.35-7.45) Arterial Blood pCO2 at Patient Temp 88mmHg (35-46) Arterial Blood pO2 at Patient Temp > 503mmHg (65-108) Arterial Blood HCO3 18mmol/L (21-28) Arterial Blood Base Excess -15mmol/L (-3-3) FiO2 100 Glucose (Fingerstick) 280mg/dL (70-99) 302mg/dL (70-99) Bedside Creatinine 1.3mg/dL (0.7-1.3) Test 07/15/16 23:55 07/16/16 02:15 07/16/16 03:55 07/16/16 07:17 Lactic Acid Level 0.9mmol/L (0.4-2.0) Heparin Anti-Xa Act, Unfractionated 1.07IU/mL (0.30-0.70) White Blood Count 12.0x10^3/uL (4.0-11.0) Red Blood Count 3.08x10^6/uL (4.30-5.70) Hemoglobin 8.2g/dL (13.0-17.5) Hematocrit 26.5% (39.0-53.0) Mean Corpuscular Volume 86fL (79-100) Mean Corpuscular Hemoglobin 27pg (25-35) Mean Corpuscular Hemoglobin Concent 31g/dL (31-37) Red Cell Distribution Width 14.4% (11.5-14.5) Platelet Count 390x10^3/uL (140-400) Neutrophils (%) (Auto) 69% (31-73) Lymphocytes (%) (Auto) 19% (24-48) Monocytes (%) (Auto) 12% (0-9) Eosinophils (%) (Auto) 0% (0-3) Basophils (%) (Auto) 1% (0-3) Neutrophils # (Auto) 8.3x10^3uL (1.8-7.7) Lymphocytes # (Auto) 2.3x10^3/uL (1.0-4.8) Monocytes # (Auto) 1.4x10^3/uL (0.0-1.1) Eosinophils # (Auto) 0.0x10^3/uL (0.0-0.7) Basophils # (Auto) 0.1x10^3/uL (0.0-0.2) Sodium Level 142mmol/L (136-145) Potassium Level 5.8mmol/L (3.5-5.1) Chloride Level 109mmol/L (98-107) Carbon Dioxide Level 24mmol/L (21-32) Anion Gap 9 (6-14) Blood Urea Nitrogen 66mg/dL (8-26) Creatinine 2.0mg/dL (0.7-1.3) Estimated GFR (Cockcroft-Gault) 39.8 BUN/Creatinine Ratio 33 (6-20) Glucose Level 437mg/dL (70-99) Calcium Level 8.0mg/dL (8.5-10.1) Phosphorus Level 6.9mg/dL (2.6-4.7) Magnesium Level 2.4mg/dL (1.8-2.4) Total Bilirubin 0.3mg/dL (0.2-1.0) Aspartate Amino Transf (AST/SGOT) 219U/L (15-37) Alanine Aminotransferase (ALT/SGPT) 227U/L (16-63) Alkaline Phosphatase 225U/L (46-116) Total Protein 5.4g/dL (6.4-8.2) Albumin 1.6g/dL (3.4-5.0) Albumin/Globulin Ratio 0.4 (1.0-1.7) Glucose (Fingerstick) 356mg/dL (70-99) Test 07/16/16 07:55 07/16/16 08:00 07/16/16 08:36 07/16/16 09:10 Heparin Anti-Xa Act, Unfractionated > 1.10IU/mL (0.30-0.70) O2 Saturation 93% (92-99) Arterial Blood pH 7.19 (7.35-7.45) Arterial Blood pCO2 at Patient Temp 45mmHg (35-46) Arterial Blood pO2 at Patient Temp 88mmHg (65-108) Arterial Blood HCO3 17mmol/L (21-28) Arterial Blood Base Excess -11mmol/L (-3-3) Glucose (Fingerstick) 348mg/dL (70-99) Lactic Acid Level 3.8mmol/L (0.4-2.0) Test 07/16/16 09:41 Glucose (Fingerstick) 300mg/dL (70-99) Problem List Problems Medical Problems: (1) COPD exacerbation Status: Acute (2) Hyperglycemia Status: Acute Assessment/Plan available if needed, please call over weekend Problems: LAMAR LUA MD 07/16/16 1235: SURGICAL PROGRESS NOTE Subjective Pt seen and examined. Agree with Ms. Rincon's note Pt intubated and sedated Appears to have less swelling will sign off, but remain available if trach needed JESSICA RINCON APRN Jul 16, 2016 10:33 LAMAR LUA MD Jul 16, 2016 12:35
--- NOTE | 2016-07-16 10:51 | PDOC ---
BRIEF OPERATIVE NOTE Pre-Op Diagnosis ARF Post-Op Diagnosis same Procedure Performed Temp HD Surgeon Ayush Anesthesia Type: Local Findings 20cm Shoen with excellent manual flow rates Complications No immediate SHERITA LESLIE MD Jul 16, 2016 10:51
[2016-07-16] MEDS: NOREPINEPHRINE VIAL 8 MG in IV NORMAL SALINE 250ML 250 ML IV PRN ×2 (10:54→17:44)
[2016-07-16] MEDS: ALBUMIN HUMAN 5% 500 ML IV PRN (10:54)
--- NOTE | 2016-07-16 11:12 | RAD ---
Indication line placement. Single view of the chest was obtained at 1102 and is compared to a study approximately 90 minutes earlier. There has not been a significant change in the appearance of the chest apart from placement of a right-sided dialysis catheter. The tip is appropriately positioned at the SVC right atrial junction. No complication is seen. No pneumothorax, specifically, is seen. IMPRESSION: Interval placement of right-sided dialysis catheter. No complication seen
[2016-07-16] MEDS: IPRATROPIUM BROMIDE 0.5 MG/2.5 ML NEBU. NEB SCH ×3 (11:27→20:00)
[2016-07-16] MEDS: CEFTRIAXONE SODIUM 1 GM in IV NORMAL SALINE 50ML 50 ML IV SCH (12:00)
[2016-07-16] MEDS ORDERED: EPINEPHRINE 1 MG/10 ML DISP.SYRIN. ONE (13:02)
[2016-07-16] MEDS ORDERED: CALCIUM CHLORIDE 1,000 MG/10 ML DISP.SYRIN IV ONE (13:02)
--- NOTE | 2016-07-16 13:27 | RAD ---
Procedure: Temporary hemodialysis catheter placement at the bedside. Clinical Indication: 75-year-old with acute renal failure requiring hemodialysis Sedation: Local anesthesia only Antibiotics: None Fluoro Time: Not applicable Contrast: None Sterility: All elements of maximal sterile barrier technique including the use of a cap, mask, sterile gown, sterile gloves, large sterile sheet, appropriate hand hygiene, and 2% chlorhexidine for cutaneous antisepsis (or acceptable alternative antiseptic per current guidelines) were followed for this procedure. Consent: The procedure was explained in its entirety to the patient or the patients designated inside sales representative by a member of the treatment team, including a discussion of the risks, benefits and commonly accepted alternatives to the procedure, as well as the expected consequences of no therapy whatsoever. Discussion of the risks included, but was not limited to, those that are most frequent and those that are rare but possibly severe or life-threatening, as well as the possibility of unforeseen complications. Technique and Findings: Following informed consent, the patient was prepped and draped in the usual sterile fashion. Ultrasound interrogation of the right neck revealed patency and compressibility of the right internal jugular vein. A 21-gauge micropuncture needle was used to gain access to this vein after 1% Lidocaine was used to achieve local anesthesia. A hardcopy ultrasound image was recorded. The needle was exchanged over a wire for serial dilators followed by a 20 cm Schon temporary hemodialysis catheter which was deployed in the expected location of the mid right atrium. The catheter flow rates were assessed manually and found to be excellent. The catheter was then flushed, packed with Heparin, capped, and sutured to the skin. Chest x-ray was then obtained to assess line position. Complications: No immediate Impression: 1. Ultrasound guided placement of a temporary hemodialysis catheter which exhibits excellent manual flow rates as described.
[2016-07-16] MEDS: TPN PER PHARMACY MC PRN (14:30)
[2016-07-16 17:17] LABS: ALPHA 1 0.3 g/dL (0.0-0.4); BETA 1.2 g/dL (0.7-1.3); M-SPIKE Not Observed g/dL (Not Observed); PROTEIN TOTAL 5.9 g/dL (6.0-8.5)
[2016-07-16] MEDS: HEPARIN 25,000UTS/500ML PREMIX 500 ML IV PRN (17:43)
[2016-07-16] MEDS: VASOPRESSIN 40 UNIT in IV DEXTROSE 5% 100 ML IV PRN (17:44)
[2016-07-16] MEDS: ATORVASTATIN CALCIUM 40 MG TABLET. PO SCH (20:51)
[2016-07-16 21:09] LABS: IMMUNOGLOBULIN A 398 mg/dL (61-437); IMMUNOGLOBULIN G 995 mg/dL (700-1600); IMMUNOGLOBULIN M <25 mg/dL (15-143)
[2016-07-16] MEDS ORDERED: DEXTROSE 70% IV SCH ×10 (22:00)
[2016-07-16] MEDS ORDERED: AMINO ACIDS IV SCH ×10 (22:00)
[2016-07-16] MEDS ORDERED: [UNRECOGNIZED DRUG - OTHER] IV SCH ×10 (22:00)
[2016-07-16] MEDS ORDERED: TOTAL PARENTERAL NUTRITION IV SCH ×10 (22:00)
[2016-07-17] VITALS (26 sets, daily range): BP systolic 93–210; BP diastolic 40–74
[2016-07-17] MEDS: NOREPINEPHRINE VIAL 8 MG in IV NORMAL SALINE 250ML 250 ML IV PRN (00:51)
[2016-07-17] MEDS: FENTANYL STANDARD PCA 30 ML IV PRN ×4 (05:23→18:42)
[2016-07-17 06:04] LABS: BASO % 0 % (0-3); EOS % 0 % (0-3); LYMPH # 1.2 x10^3/uL (1.0-4.8); LYMPH % 10 % (24-48); MEAN CORPUSCULAR HEMOGLOBIN 27 pg (25-35); MEAN CORPUSCULAR HGB CONC 33 g/dL (31-37); MEAN CORPUSCULAR VOLUME 83 fL (79-100); MONO % 8 % (0-9); NEUT % 82 % (31-73); PLATELET COUNT 257 x10^3/uL (140-400); RED BLOOD COUNT 1.94 x10^6/uL (4.30-5.70); RED CELL DISTRIBUTION WIDTH 14.5 % (11.5-14.5); WHITE BLOOD COUNT 12.4 x10^3/uL (4.0-11.0)
[2016-07-17 06:16] LABS: HEMATOCRIT 16.2 % (39.0-53.0); HEMOGLOBIN 5.3 g/dL (13.0-17.5)
--- NOTE | 2016-07-17 06:22 | PDOC ---
PULMONARY PROGRESS NOTES Subjective intubated yesterday, on vent sedated, small ett secretion. on levo, dopamine, vaso, hb 5.3 Vitals Vital Signs Date Time Temp Pulse Resp B/P Pulse Ox O2 Delivery O2 Flow Rate FiO2 07/17/16 06:00 112 25 140/61 100 Ventilator 07/17/16 04:00 98.7 98.7 07/16/16 18:00 3.0 Comments ros discussed w rn, as mentioned as above other sys otherwise neg General: Lethargic HEENT: Other (nc at orally intubated, nose clear, ) Lungs: Crackles, Other (decrease bs) Cardiovascular: S1, S2 Abdomen: Soft, Non-tender Extremities: Other (trace edema) Skin: Warm Labs Laboratory Tests Test 07/15/16 06:32 07/15/16 07:40 07/15/16 08:45 07/15/16 10:16 Glucose (Fingerstick) 142mg/dL (70-99) 168mg/dL (70-99) 149mg/dL (70-99) 146mg/dL (70-99) Test 07/15/16 10:30 07/15/16 11:40 07/15/16 16:15 07/15/16 17:04 Troponin I Quantitative < 0.017ng/mL (0.000-0.055) O2 Saturation 100% (92-99) Arterial Blood pH 6.93 (7.35-7.45) Arterial Blood pCO2 at Patient Temp 88mmHg (35-46) Arterial Blood pO2 at Patient Temp > 503mmHg (65-108) Arterial Blood HCO3 18mmol/L (21-28) Arterial Blood Base Excess -15mmol/L (-3-3) FiO2 100 Glucose (Fingerstick) 280mg/dL (70-99) Bedside Creatinine 1.3mg/dL (0.7-1.3) Test 07/15/16 21:35 07/15/16 23:55 07/16/16 02:15 07/16/16 03:55 Glucose (Fingerstick) 302mg/dL (70-99) Lactic Acid Level 0.9mmol/L (0.4-2.0) Heparin Anti-Xa Act, Unfractionated 1.07IU/mL (0.30-0.70) White Blood Count 12.0x10^3/uL (4.0-11.0) Red Blood Count 3.08x10^6/uL (4.30-5.70) Hemoglobin 8.2g/dL (13.0-17.5) Hematocrit 26.5% (39.0-53.0) Mean Corpuscular Volume 86fL (79-100) Mean Corpuscular Hemoglobin 27pg (25-35) Mean Corpuscular Hemoglobin Concent 31g/dL (31-37) Red Cell Distribution Width 14.4% (11.5-14.5) Platelet Count 390x10^3/uL (140-400) Neutrophils (%) (Auto) 69% (31-73) Lymphocytes (%) (Auto) 19% (24-48) Monocytes (%) (Auto) 12% (0-9) Eosinophils (%) (Auto) 0% (0-3) Basophils (%) (Auto) 1% (0-3) Neutrophils # (Auto) 8.3x10^3uL (1.8-7.7) Lymphocytes # (Auto) 2.3x10^3/uL (1.0-4.8) Monocytes # (Auto) 1.4x10^3/uL (0.0-1.1) Eosinophils # (Auto) 0.0x10^3/uL (0.0-0.7) Basophils # (Auto) 0.1x10^3/uL (0.0-0.2) Sodium Level 142mmol/L (136-145) Potassium Level 5.8mmol/L (3.5-5.1) Chloride Level 109mmol/L (98-107) Carbon Dioxide Level 24mmol/L (21-32) Anion Gap 9 (6-14) Blood Urea Nitrogen 66mg/dL (8-26) Creatinine 2.0mg/dL (0.7-1.3) Estimated GFR (Cockcroft-Gault) 39.8 BUN/Creatinine Ratio 33 (6-20) Glucose Level 437mg/dL (70-99) Calcium Level 8.0mg/dL (8.5-10.1) Phosphorus Level 6.9mg/dL (2.6-4.7) Magnesium Level 2.4mg/dL (1.8-2.4) Total Bilirubin 0.3mg/dL (0.2-1.0) Aspartate Amino Transf (AST/SGOT) 219U/L (15-37) Alanine Aminotransferase (ALT/SGPT) 227U/L (16-63) Alkaline Phosphatase 225U/L (46-116) Total Protein 5.4g/dL (6.4-8.2) Albumin 1.6g/dL (3.4-5.0) Albumin/Globulin Ratio 0.4 (1.0-1.7) Test 07/16/16 07:17 07/16/16 07:55 07/16/16 08:00 07/16/16 08:36 Glucose (Fingerstick) 356mg/dL (70-99) 348mg/dL (70-99) Heparin Anti-Xa Act, Unfractionated > 1.10IU/mL (0.30-0.70) O2 Saturation 93% (92-99) Arterial Blood pH 7.19 (7.35-7.45) Arterial Blood pCO2 at Patient Temp 45mmHg (35-46) Arterial Blood pO2 at Patient Temp 88mmHg (65-108) Arterial Blood HCO3 17mmol/L (21-28) Arterial Blood Base Excess -11mmol/L (-3-3) Test 07/16/16 09:10 07/16/16 09:41 07/16/16 10:55 07/16/16 12:00 Lactic Acid Level 3.8mmol/L (0.4-2.0) Glucose (Fingerstick) 300mg/dL (70-99) 265mg/dL (70-99) 220mg/dL (70-99) Test 07/16/16 12:15 07/16/16 13:04 07/16/16 14:08 07/16/16 15:19 Heparin Anti-Xa Act, Unfractionated 0.64IU/mL (0.30-0.70) Potassium Level 4.4mmol/L (3.5-5.1) Glucose (Fingerstick) 192mg/dL (70-99) 159mg/dL (70-99) 149mg/dL (70-99) Test 07/16/16 16:25 07/16/16 17:33 07/16/16 18:00 07/16/16 18:37 Glucose (Fingerstick) 123mg/dL (70-99) 123mg/dL (70-99) 116mg/dL (70-99) Heparin Anti-Xa Act, Unfractionated 0.41IU/mL (0.30-0.70) Test 07/16/16 19:52 07/16/16 20:56 07/16/16 22:00 07/16/16 23:04 Glucose (Fingerstick) 116mg/dL (70-99) 120mg/dL (70-99) 161mg/dL (70-99) 156mg/dL (70-99) Test 07/17/16 00:13 07/17/16 01:17 07/17/16 05:30 Glucose (Fingerstick) 144mg/dL (70-99) 153mg/dL (70-99) White Blood Count 12.4x10^3/uL (4.0-11.0) Red Blood Count 1.94x10^6/uL (4.30-5.70) Hemoglobin 5.3g/dL (13.0-17.5) Hematocrit 16.2% (39.0-53.0) Mean Corpuscular Volume 83fL (79-100) Mean Corpuscular Hemoglobin 27pg (25-35) Mean Corpuscular Hemoglobin Concent 33g/dL (31-37) Red Cell Distribution Width 14.5% (11.5-14.5) Platelet Count 257x10^3/uL (140-400) Neutrophils (%) (Auto) 82% (31-73) Lymphocytes (%) (Auto) 10% (24-48) Monocytes (%) (Auto) 8% (0-9) Eosinophils (%) (Auto) 0% (0-3) Basophils (%) (Auto) 0% (0-3) Neutrophils # (Auto) 10.1x10^3uL (1.8-7.7) Lymphocytes # (Auto) 1.2x10^3/uL (1.0-4.8) Monocytes # (Auto) 1.0x10^3/uL (0.0-1.1) Eosinophils # (Auto) 0.0x10^3/uL (0.0-0.7) Basophils # (Auto) 0.0x10^3/uL (0.0-0.2) Magnesium Level 2.5mg/dL (1.8-2.4) Laboratory Tests Test 07/16/16 07:17 07/16/16 07:55 07/16/16 08:00 07/16/16 08:36 Glucose (Fingerstick) 356mg/dL (70-99) 348mg/dL (70-99) Heparin Anti-Xa Act, Unfractionated > 1.10IU/mL (0.30-0.70) O2 Saturation 93% (92-99) Arterial Blood pH 7.19 (7.35-7.45) Arterial Blood pCO2 at Patient Temp 45mmHg (35-46) Arterial Blood pO2 at Patient Temp 88mmHg (65-108) Arterial Blood HCO3 17mmol/L (21-28) Arterial Blood Base Excess -11mmol/L (-3-3) Test 07/16/16 09:10 07/16/16 09:41 07/16/16 10:55 07/16/16 12:00 Lactic Acid Level 3.8mmol/L (0.4-2.0) Glucose (Fingerstick) 300mg/dL (70-99) 265mg/dL (70-99) 220mg/dL (70-99) Test 07/16/16 12:15 07/16/16 13:04 07/16/16 14:08 07/16/16 15:19 Heparin Anti-Xa Act, Unfractionated 0.64IU/mL (0.30-0.70) Potassium Level 4.4mmol/L (3.5-5.1) Glucose (Fingerstick) 192mg/dL (70-99) 159mg/dL (70-99) 149mg/dL (70-99) Test 07/16/16 16:25 07/16/16 17:33 07/16/16 18:00 07/16/16 18:37 Glucose (Fingerstick) 123mg/dL (70-99) 123mg/dL (70-99) 116mg/dL (70-99) Heparin Anti-Xa Act, Unfractionated 0.41IU/mL (0.30-0.70) Test 07/16/16 19:52 3/24/17 20:56 07/16/16 22:00 07/16/16 23:04 Glucose (Fingerstick) 116mg/dL (70-99) 120mg/dL (70-99) 161mg/dL (70-99) 156mg/dL (70-99) Test 07/17/16 00:13 07/17/16 01:17 07/17/16 05:30 Glucose (Fingerstick) 144mg/dL (70-99) 153mg/dL (70-99) White Blood Count 12.4x10^3/uL (4.0-11.0) Red Blood Count 1.94x10^6/uL (4.30-5.70) Hemoglobin 5.3g/dL (13.0-17.5) Hematocrit 16.2% (39.0-53.0) Mean Corpuscular Volume 83fL (79-100) Mean Corpuscular Hemoglobin 27pg (25-35) Mean Corpuscular Hemoglobin Concent 33g/dL (31-37) Red Cell Distribution Width 14.5% (11.5-14.5) Platelet Count 257x10^3/uL (140-400) Neutrophils (%) (Auto) 82% (31-73) Lymphocytes (%) (Auto) 10% (24-48) Monocytes (%) (Auto) 8% (0-9) Eosinophils (%) (Auto) 0% (0-3) Basophils (%) (Auto) 0% (0-3) Neutrophils # (Auto) 10.1x10^3uL (1.8-7.7) Lymphocytes # (Auto) 1.2x10^3/uL (1.0-4.8) Monocytes # (Auto) 1.0x10^3/uL (0.0-1.1) Eosinophils # (Auto) 0.0x10^3/uL (0.0-0.7) Basophils # (Auto) 0.0x10^3/uL (0.0-0.2) Magnesium Level 2.5mg/dL (1.8-2.4) Medications Active Scripts Medications Dose Route/Sig Days Date Category Advair 100-50 Diskus (Fluticasone/Salmeterol) 1 Each Disk.w.dev 1 Puff IH BID 06/21/16 Reported Spiriva Respimat (Tiotropium [place]) 4 Gm Mist.inhal 2.5 Gm IH DAILY 06/21/16 Reported Symbicort 160-4.5 Mcg Inhaler (Budesonide/Formoterol Fumarate) 10.2 Gm Hfa.aer.ad 2 Puff IH BID 06/21/16 Reported Atorvastatin Calcium 20 Mg Tablet 20 Mg PO HS 06/21/16 Reported Lisinopril-Hctz 10-12.5 Mg Tab (Lisinopril/Hydrochlorothiazide) 1 Each Tablet 1 Tab PO DAILY 06/21/16 Reported Isosorbide Mononitrate Er (Isosorbide Mononitrate) 120 Mg Tab.er.24h 120 Mg PO DAILY 06/21/16 Reported Levemir Flextouch (Insulin Detemir) 100 Unit/1 Ml Insuln.pen 20 Units SQ QHS 30 11/24/15 Rx Novolog Flexpen (Insulin Aspart) 100 Unit/1 Ml Insuln.pen 10 Units SQ TIDAC 30 11/24/15 Rx Novolin N (Nph, Human Insulin Isophane) 100 Unit/1 Ml Vial 0 SQ 11/18/15 Reported Promethazine-Codeine Syrup (Promethazine Hcl/Codeine) 118 Ml Syrup 5 Ml PO Q4-6HRS 11/18/15 Reported Diltiazem 24HR Cd (Diltiazem Hcl) 240 Mg Cap.er.24h 240 Mg PO DAILY 11/18/15 Reported NITROGLYCERIN SubLingual (Nitroglycerin) 0.4 Mg Tab.subl 0.4 Mg SL PRN Q5MIN PRN 11/18/15 Reported Atorvastatin Calcium 40 Mg Tablet 40 Mg PO HS 11/18/[address] reviewed, 1. Widespread multifocal bilateral segmental pulmonary embolism, with nonocclusive lobar embolism involving the right lower and middle lobes. 2. Diffuse tree-in-bud opacification suggestive of acute bronchiolitis. Findings are less confluence than on the prior examination, but now involve the lower lobes. 3. Right heart enlargement with straightening of the interventricular septum possibly due to pulmonary hypertension. Correlate clinically and consider echocardiography if warranted. 4. Short segment high-grade stricture and/or focal obliteration of the right upper lobe bronchus. No adjacent mass or evidence of extrinsic compression. This is stable. Impression . 1. Acute respiratory failure secondary to angioedema, self extubated 07/14, reintubated 07/15, s/p cp arrest, pe, dvt, s/p tpa 2. Lisinopril induced angioedema. 3. Chronic obstructive pulmonary disease. 4. Hypertension. 5. Coronary artery disease. 6. [place] 7. anemia, ? gib Plan . 1. cont vent support, setting reviewed, review abg 2. Continue steroids. 3. GI prophylaxis. 4. nephro consulted, reviewed case w nephro 5. cont pressors to keep map 65 6. may need hd 7. Atrovent only. is tachy 8. am abg, pcxr 9. agree w iv fluid 10. agree w prbc, off hep gtt, ? ivc fliter, cath site is ok, start protonix gtt. discussed w rn, rt, dr rojas pt is critically ill, this is cc time 30 min w/o SARAH Heredia MD Jul 17, 2016 06:22
[2016-07-17 06:33] LABS: ALBUMIN 1.8 g/dL (3.4-5.0); ALBUMIN/GLOBULIN RATIO 0.6 (1.0-1.7); CALCIUM 7.4 mg/dL (8.5-10.1); CREATININE 2.2 mg/dL (0.7-1.3); GFR 35.7; PHOSPHORUS 5.8 mg/dL (2.6-4.7); POTASSIUM 4.1 mmol/L (3.5-5.1); TOTAL BILIRUBIN 0.2 mg/dL (0.2-1.0); TOTAL PROTEIN 4.9 g/dL (6.4-8.2)
[2016-07-17] MEDS: HYDROCORTISONE SOD SUCC/PF 100 MG/2 ML VIAL. IV SCH ×3 (07:14→21:47)
[2016-07-17] MEDS: IPRATROPIUM BROMIDE 0.5 MG/2.5 ML NEBU. NEB SCH ×4 (07:23→19:56)
[2016-07-17] MEDS: MIDAZOLAM PREMIX 100 ML IV PRN ×3 (08:12→22:42)
[2016-07-17] MEDS: ALBUMIN HUMAN 5% 500 ML IV PRN (08:12)
[2016-07-17] MEDS: PANTOPRAZOLE IV PUSH 40 MG VIAL. IVP SCH (08:16)
[2016-07-17] MEDS: PANTOPRAZOLE SODIUM IV 80 MG in IV NORMAL SALINE 100ML 100 ML IV SCH ×2 (08:16→20:49)
[2016-07-17] MEDS: TPN PER PHARMACY MC PRN (08:26)
[2016-07-17 09:41] LABS: FIO2 ABG 40; HCO3 ABG 21 mmol/L (21-28); PCO2 ABG 38 mmHg (35-46); PH ABG 7.35 (7.35-7.45); PO2 ABG 114 mmHg (65-108); SAT O2 ABG 97 % (92-99)
[2016-07-17] MEDS ORDERED: DEXTROSE 50% 25 GM / 50ML DISP.SYRIN. IV PRN (10:15)
--- NOTE | 2016-07-17 10:16 | PDOC ---
PROGRESS NOTES Chief Complaint Chief Complaint Angioedema ASSESSMENT AND PLAN: 1. angioedema 2/2 ACEI likely; self extubated 07/14/16 - resolved 2. s/p CP arrest (PEA) sec to Multiple bilateral PE (07/15) 3. NOn occlusive thrombus, R leg (07/15) 4. COPD hx, 5. Low TSH levels in a critically ill patient 6. DM2: insulin requiring 7. Oliguric Hyperkalemic renal failure 8. Metabolic acidosis s/p arrest 9. Dyslipidemia on statin 10. HYpotensive shock on 3 pressors 11. Acute respiratory failure - intubated again (07/15) secondary to code blue ( PEA # 2) History of Present Illness History of Present Illness Intubated, sedated, seen in ICU on 6 gtts: levophed, vasopressin, TPN, insulin gtt, fentanyl and versed Hgb dropped to 5.7 today NO overt bleeding seen To start PPI gtt peer pulmo -likely stress induced gastritis etc from cardiac arrest/stress ulcer Insulin gtt running at 3-3.5 mcgs per hr for the past 24 hrs PLAN: Dc insulin gtt STart levemir 25 BID, over lap with novolog gtt x 2 hrs SSI high dose q6 PPI gtt per CC Check FOBT HH duyen Transfuse 2 pRBC IVC filter? has PE and DVT off heparin gtt bec of anemia NOt on any AC for now Will discuss with CC Doni [employer] Critically ill Prognosis guarded COnsider gI consult for the precipitous drop hgb - though likely stress induced ulcer/gastritis Vitals Vitals Vital Signs Date Time Temp Pulse Resp B/P Pulse Ox O2 Delivery O2 Flow Rate FiO2 07/17/16 08:46 100 Ventilator 07/17/16 06:00 112 25 140/61 07/17/16 04:00 98.7 98.7 07/16/16 18:00 3.0 Physical Exam General: No acute distress Heart: Regular rate Lungs: Crackles, Other (decrease bs) Abdomen: Normal bowel sounds, Soft Extremities: No edema Skin: No rashes Labs LABS Laboratory Tests Test 07/16/16 10:55 07/16/16 12:00 07/16/16 12:15 07/16/16 13:04 Glucose (Fingerstick) 265mg/dL (70-99) 220mg/dL (70-99) 192mg/dL (70-99) Heparin Anti-Xa Act, Unfractionated 0.64IU/mL (0.30-0.70) Potassium Level 4.4mmol/L (3.5-5.1) Test 07/16/16 14:08 07/16/16 15:19 07/16/16 16:25 07/16/16 17:33 Glucose (Fingerstick) 159mg/dL (70-99) 149mg/dL (70-99) 123mg/dL (70-99) 123mg/dL (70-99) Test 07/16/16 18:00 07/16/16 18:37 07/16/16 19:52 07/16/16 20:56 Heparin Anti-Xa Act, Unfractionated 0.41IU/mL (0.30-0.70) Glucose (Fingerstick) 116mg/dL (70-99) 116mg/dL (70-99) 120mg/dL (70-99) Test 07/16/16 22:00 07/16/16 23:04 07/17/16 00:13 07/17/16 01:17 Glucose (Fingerstick) 161mg/dL (70-99) 156mg/dL (70-99) 144mg/dL (70-99) 153mg/dL (70-99) Test 07/17/16 02:22 07/17/16 03:24 07/17/16 04:28 07/17/16 05:30 Glucose (Fingerstick) 162mg/dL (70-99) 152mg/dL (70-99) 139mg/dL (70-99) White Blood Count 12.4x10^3/uL (4.0-11.0) Red Blood Count 1.94x10^6/uL (4.30-5.70) Hemoglobin 5.3g/dL (13.0-17.5) Hematocrit 16.2% (39.0-53.0) Mean Corpuscular Volume 83fL (79-100) Mean Corpuscular Hemoglobin 27pg (25-35) Mean Corpuscular Hemoglobin Concent 33g/dL (31-37) Red Cell Distribution Width 14.5% (11.5-14.5) Platelet Count 257x10^3/uL (140-400) Neutrophils (%) (Auto) 82% (31-73) Lymphocytes (%) (Auto) 10% (24-48) Monocytes (%) (Auto) 8% (0-9) Eosinophils (%) (Auto) 0% (0-3) Basophils (%) (Auto) 0% (0-3) Neutrophils # (Auto) 10.1x10^3uL (1.8-7.7) Lymphocytes # (Auto) 1.2x10^3/uL (1.0-4.8) Monocytes # (Auto) 1.0x10^3/uL (0.0-1.1) Eosinophils # (Auto) 0.0x10^3/uL (0.0-0.7) Basophils # (Auto) 0.0x10^3/uL (0.0-0.2) Heparin Anti-Xa Act, Unfractionated 0.35IU/mL (0.30-0.70) Sodium Level 146mmol/L (136-145) Potassium Level 4.1mmol/L (3.5-5.1) Chloride Level 113mmol/L (98-107) Carbon Dioxide Level 24mmol/L (21-32) Anion Gap 9 (6-14) Blood Urea Nitrogen 76mg/dL (8-26) Creatinine 2.2mg/dL (0.7-1.3) Estimated GFR (Cockcroft-Gault) 35.7 BUN/Creatinine Ratio 35 (6-20) Glucose Level 146mg/dL (70-99) Calcium Level 7.4mg/dL (8.5-10.1) Phosphorus Level 5.8mg/dL (2.6-4.7) Magnesium Level 2.5mg/dL (1.8-2.4) Total Bilirubin 0.2mg/dL (0.2-1.0) Aspartate Amino Transf (AST/SGOT) 1105U/L (15-37) Alanine Aminotransferase (ALT/SGPT) 786U/L (16-63) Alkaline Phosphatase 135U/L (46-116) Total Protein 4.9g/dL (6.4-8.2) Albumin 1.8g/dL (3.4-5.0) Albumin/Globulin Ratio 0.6 (1.0-1.7) Test 07/17/16 05:33 07/17/16 06:46 07/17/16 07:42 07/17/16 08:00 Glucose (Fingerstick) 150mg/dL (70-99) 128mg/dL (70-99) 144mg/dL (70-99) O2 Saturation 97% (92-99) Arterial Blood pH 7.35 (7.35-7.45) Arterial Blood pCO2 at Patient Temp 38mmHg (35-46) Arterial Blood pO2 at Patient Temp 114mmHg (65-108) Arterial Blood HCO3 21mmol/L (21-28) Arterial Blood Base Excess -4mmol/L (-3-3) FiO2 40 Review of Systems Review of Systems intuabted Assessment and Plan Assessmemt and Plan Problems Medical Problems: (1) COPD exacerbation Status: Acute (2) Hyperglycemia Status: Acute Problems: Comment Review of Relevant I have reviewed the following items valerie (where applicable) has been applied. Labs Laboratory Tests Test 07/15/16 10:16 07/15/16 10:30 07/15/16 11:40 07/15/16 16:15 Glucose (Fingerstick) 146mg/dL (70-99) 280mg/dL (70-99) Troponin I Quantitative < 0.017ng/mL (0.000-0.055) O2 Saturation 100% (92-99) Arterial Blood pH 6.93 (7.35-7.45) Arterial Blood pCO2 at Patient Temp 88mmHg (35-46) Arterial Blood pO2 at Patient Temp > 503mmHg (65-108) Arterial Blood HCO3 18mmol/L (21-28) Arterial Blood Base Excess -15mmol/L (-3-3) FiO2 100 Test 07/15/16 17:04 07/15/16 21:35 07/15/16 23:55 07/16/16 02:15 Bedside Creatinine 1.3mg/dL (0.7-1.3) Glucose (Fingerstick) 302mg/dL (70-99) Lactic Acid Level 0.9mmol/L (0.4-2.0) Heparin Anti-Xa Act, Unfractionated 1.07IU/mL (0.30-0.70) Test 07/16/16 03:55 07/16/16 07:17 07/16/16 07:55 07/16/16 08:00 White Blood Count 12.0x10^3/uL (4.0-11.0) Red Blood Count 3.08x10^6/uL (4.30-5.70) Hemoglobin 8.2g/dL (13.0-17.5) Hematocrit 26.5% (39.0-53.0) Mean Corpuscular Volume 86fL (79-100) Mean Corpuscular Hemoglobin 27pg (25-35) Mean Corpuscular Hemoglobin Concent 31g/dL (31-37) Red Cell Distribution Width 14.4% (11.5-14.5) Platelet Count 390x10^3/uL (140-400) Neutrophils (%) (Auto) 69% (31-73) Lymphocytes (%) (Auto) 19% (24-48) Monocytes (%) (Auto) 12% (0-9) Eosinophils (%) (Auto) 0% (0-3) Basophils (%) (Auto) 1% (0-3) Neutrophils # (Auto) 8.3x10^3uL (1.8-7.7) Lymphocytes # (Auto) 2.3x10^3/uL (1.0-4.8) Monocytes # (Auto) 1.4x10^3/uL (0.0-1.1) Eosinophils # (Auto) 0.0x10^3/uL (0.0-0.7) Basophils # (Auto) 0.1x10^3/uL (0.0-0.2) Sodium Level 142mmol/L (136-145) Potassium Level 5.8mmol/L (3.5-5.1) Chloride Level 109mmol/L (98-107) Carbon Dioxide Level 24mmol/L (21-32) Anion Gap 9 (6-14) Blood Urea Nitrogen 66mg/dL (8-26) Creatinine 2.0mg/dL (0.7-1.3) Estimated GFR (Cockcroft-Gault) 39.8 BUN/Creatinine Ratio 33 (6-20) Glucose Level 437mg/dL (70-99) Calcium Level 8.0mg/dL (8.5-10.1) Phosphorus Level 6.9mg/dL (2.6-4.7) Magnesium Level 2.4mg/dL (1.8-2.4) Total Bilirubin 0.3mg/dL (0.2-1.0) Aspartate Amino Transf (AST/SGOT) 219U/L (15-37) Alanine Aminotransferase (ALT/SGPT) 227U/L (16-63) Alkaline Phosphatase 225U/L (46-116) Total Protein 5.4g/dL (6.4-8.2) Albumin 1.6g/dL (3.4-5.0) Albumin/Globulin Ratio 0.4 (1.0-1.7) Glucose (Fingerstick) 356mg/dL (70-99) Heparin Anti-Xa Act, Unfractionated > 1.10IU/mL (0.30-0.70) O2 Saturation 93% (92-99) Arterial Blood pH 7.19 (7.35-7.45) Arterial Blood pCO2 at Patient Temp 45mmHg (35-46) Arterial Blood pO2 at Patient Temp 88mmHg (65-108) Arterial Blood HCO3 17mmol/L (21-28) Arterial Blood Base Excess -11mmol/L (-3-3) Test 07/16/16 08:36 07/16/16 09:10 07/16/16 09:41 07/16/16 10:55 Glucose (Fingerstick) 348mg/dL (70-99) 300mg/dL (70-99) 265mg/dL (70-99) Lactic Acid Level 3.8mmol/L (0.4-2.0) Test 07/16/16 12:00 07/16/16 12:15 07/16/16 13:04 07/16/16 14:08 Glucose (Fingerstick) 220mg/dL (70-99) 192mg/dL (70-99) 159mg/dL (70-99) Heparin Anti-Xa Act, Unfractionated 0.64IU/mL (0.30-0.70) Potassium Level 4.4mmol/L (3.5-5.1) Test 07/16/16 15:19 07/16/16 16:25 07/16/16 17:33 07/16/16 18:00 Glucose (Fingerstick) 149mg/dL (70-99) 123mg/dL (70-99) 123mg/dL (70-99) Heparin Anti-Xa Act, Unfractionated 0.41IU/mL (0.30-0.70) Test 07/16/16 18:37 07/16/16 19:52 07/16/16 20:56 07/16/16 22:00 Glucose (Fingerstick) 116mg/dL (70-99) 116mg/dL (70-99) 120mg/dL (70-99) 161mg/dL (70-99) Test 07/16/16 23:04 07/17/16 00:13 07/17/16 01:17 07/17/16 02:22 Glucose (Fingerstick) 156mg/dL (70-99) 144mg/dL (70-99) 153mg/dL (70-99) 162mg/dL (70-99) Test 07/17/16 03:24 07/17/16 04:28 07/17/16 05:30 07/17/16 05:33 Glucose (Fingerstick) 152mg/dL (70-99) 139mg/dL (70-99) 150mg/dL (70-99) White Blood Count 12.4x10^3/uL (4.0-11.0) Red Blood Count 1.94x10^6/uL (4.30-5.70) Hemoglobin 5.3g/dL (13.0-17.5) Hematocrit 16.2% (39.0-53.0) Mean Corpuscular Volume 83fL (79-100) Mean Corpuscular Hemoglobin 27pg (25-35) Mean Corpuscular Hemoglobin Concent 33g/dL (31-37) Red Cell Distribution Width 14.5% (11.5-14.5) Platelet Count 257x10^3/uL (140-400) Neutrophils (%) (Auto) 82% (31-73) Lymphocytes (%) (Auto) 10% (24-48) Monocytes (%) (Auto) 8% (0-9) Eosinophils (%) (Auto) 0% (0-3) Basophils (%) (Auto) 0% (0-3) Neutrophils # (Auto) 10.1x10^3uL (1.8-7.7) Lymphocytes # (Auto) 1.2x10^3/uL (1.0-4.8) Monocytes # (Auto) 1.0x10^3/uL (0.0-1.1) Eosinophils # (Auto) 0.0x10^3/uL (0.0-0.7) Basophils # (Auto) 0.0x10^3/uL (0.0-0.2) Heparin Anti-Xa Act, Unfractionated 0.35IU/mL (0.30-0.70) Sodium Level 146mmol/L (136-145) Potassium Level 4.1mmol/L (3.5-5.1) Chloride Level 113mmol/L (98-107) Carbon Dioxide Level 24mmol/L (21-32) Anion Gap 9 (6-14) Blood Urea Nitrogen 76mg/dL (8-26) Creatinine 2.2mg/dL (0.7-1.3) Estimated GFR (Cockcroft-Gault) 35.7 BUN/Creatinine Ratio 35 (6-20) Glucose Level 146mg/dL (70-99) Calcium Level 7.4mg/dL (8.5-10.1) Phosphorus Level 5.8mg/dL (2.6-4.7) Magnesium Level 2.5mg/dL (1.8-2.4) Total Bilirubin 0.2mg/dL (0.2-1.0) Aspartate Amino Transf (AST/SGOT) 1105U/L (15-37) Alanine Aminotransferase (ALT/SGPT) 786U/L (16-63) Alkaline Phosphatase 135U/L (46-116) Total Protein 4.9g/dL (6.4-8.2) Albumin 1.8g/dL (3.4-5.0) Albumin/Globulin Ratio 0.6 (1.0-1.7) Test 07/17/16 06:46 07/17/16 07:42 07/17/16 08:00 Glucose (Fingerstick) 128mg/dL (70-99) 144mg/dL (70-99) O2 Saturation 97% (92-99) Arterial Blood pH 7.35 (7.35-7.45) Arterial Blood pCO2 at Patient Temp 38mmHg (35-46) Arterial Blood pO2 at Patient Temp 114mmHg (65-108) Arterial Blood HCO3 21mmol/L (21-28) Arterial Blood Base Excess -4mmol/L (-3-3) FiO2 40 Laboratory Tests Test 07/16/16 10:55 07/16/16 12:00 07/16/16 12:15 07/16/16 13:04 Glucose (Fingerstick) 265mg/dL (70-99) 220mg/dL (70-99) 192mg/dL (70-99) Heparin Anti-Xa Act, Unfractionated 0.64IU/mL (0.30-0.70) Potassium Level 4.4mmol/L (3.5-5.1) Test 07/16/16 14:08 07/16/16 15:19 07/16/16 16:25 07/16/16 17:33 Glucose (Fingerstick) 159mg/dL (70-99) 149mg/dL (70-99) 123mg/dL (70-99) 123mg/dL (70-99) Test 07/16/16 18:00 07/16/16 18:37 07/16/16 19:52 07/16/16 20:56 Heparin Anti-Xa Act, Unfractionated 0.41IU/mL (0.30-0.70) Glucose (Fingerstick) 116mg/dL (70-99) 116mg/dL (70-99) 120mg/dL (70-99) Test 07/16/16 22:00 07/16/16 23:04 07/17/16 00:13 07/17/16 01:17 Glucose (Fingerstick) 161mg/dL (70-99) 156mg/dL (70-99) 144mg/dL (70-99) 153mg/dL (70-99) Test 07/17/16 02:22 07/17/16 03:24 07/17/16 04:28 07/17/16 05:30 Glucose (Fingerstick) 162mg/dL (70-99) 152mg/dL (70-99) 139mg/dL (70-99) White Blood Count 12.4x10^3/uL (4.0-11.0) Red Blood Count 1.94x10^6/uL (4.30-5.70) Hemoglobin 5.3g/dL (13.0-17.5) Hematocrit 16.2% (39.0-53.0) Mean Corpuscular Volume 83fL (79-100) Mean Corpuscular Hemoglobin 27pg (25-35) Mean Corpuscular Hemoglobin Concent 33g/dL (31-37) Red Cell Distribution Width 14.5% (11.5-14.5) Platelet Count 257x10^3/uL (140-400) Neutrophils (%) (Auto) 82% (31-73) Lymphocytes (%) (Auto) 10% (24-48) Monocytes (%) (Auto) 8% (0-9) Eosinophils (%) (Auto) 0% (0-3) Basophils (%) (Auto) 0% (0-3) Neutrophils # (Auto) 10.1x10^3uL (1.8-7.7) Lymphocytes # (Auto) 1.2x10^3/uL (1.0-4.8) Monocytes # (Auto) 1.0x10^3/uL (0.0-1.1) Eosinophils # (Auto) 0.0x10^3/uL (0.0-0.7) Basophils # (Auto) 0.0x10^3/uL (0.0-0.2) Heparin Anti-Xa Act, Unfractionated 0.35IU/mL (0.30-0.70) Sodium Level 146mmol/L (136-145) Potassium Level 4.1mmol/L (3.5-5.1) Chloride Level 113mmol/L (98-107) Carbon Dioxide Level 24mmol/L (21-32) Anion Gap 9 (6-14) Blood Urea Nitrogen 76mg/dL (8-26) Creatinine 2.2mg/dL (0.7-1.3) Estimated GFR (Cockcroft-Gault) 35.7 BUN/Creatinine Ratio 35 (6-20) Glucose Level 146mg/dL (70-99) Calcium Level 7.4mg/dL (8.5-10.1) Phosphorus Level 5.8mg/dL (2.6-4.7) Magnesium Level 2.5mg/dL (1.8-2.4) Total Bilirubin 0.2mg/dL (0.2-1.0) Aspartate Amino Transf (AST/SGOT) 1105U/L (15-37) Alanine Aminotransferase (ALT/SGPT) 786U/L (16-63) Alkaline Phosphatase 135U/L (46-116) Total Protein 4.9g/dL (6.4-8.2) Albumin 1.8g/dL (3.4-5.0) Albumin/Globulin Ratio 0.6 (1.0-1.7) Test 07/17/16 05:33 07/17/16 06:46 07/17/16 07:42 07/17/16 08:00 Glucose (Fingerstick) 150mg/dL (70-99) 128mg/dL (70-99) 144mg/dL (70-99) O2 Saturation 97% (92-99) Arterial Blood pH 7.35 (7.35-7.45) Arterial Blood pCO2 at Patient Temp 38mmHg (35-46) Arterial Blood pO2 at Patient Temp 114mmHg (65-108) Arterial Blood HCO3 21mmol/L (21-28) Arterial Blood Base Excess -4mmol/L (-3-3) FiO2 40 Microbiology 07/15/16 Blood Culture - Preliminary, Resulted NO GROWTH AFTER 1 DAY 07/14/16 Urine Culture - Final, Complete 07/14/16 Urine Culture Result 1 (MARÍA) - Final, Complete 07/14/16 Urine Culture Result 2 (MARÍA) - Final, Complete 07/14/16 Antimicrobic Susceptibility - Final, Complete Medications Current Medications Albuterol/ Ipratropium (Duoneb) 6 ml 1X ONCE NEB Last administered on 12:34; Start 07/12/16 at 12:30; Stop 07/12/16 at 12:31; Status DC Prednisone 60 mg 60 mg 1X ONCE PO Last administered on 07/12/16 12:40; Start 07/12/16 at 12:30; Stop 07/12/16 at 12:31; Status DC Sodium Chloride (Iv Sodium Chloride 0.9% 1000ml Bag) 1,000 ml @ 1,000 mls/hr 1X ONCE IV Last administered on 07/12/16 13:12; Start 07/12/16 at 13:15; Stop 07/12/16 at 14:14; Status DC Insulin Human Regular (Novolin R Vial) 10 unit 1X ONCE IV Last administered on 07/12/16 13:16; Start 07/12/16 at 13:15; Stop 07/12/16 at 13:16; Status DC Diphenhydramine HCl (Benadryl) 50 mg STK-MED ONCE .ROUTE ; Start 07/12/16 at 14: 55; Stop 07/12/16 at 14:56; Status DC Diphenhydramine HCl (Benadryl) 50 mg 1X ONCE IVP Last administered on 15:15; Start 07/12/16 at 15:15; Stop 07/12/16 at 15:16; Status DC Atorvastatin Calcium (Lipitor) 40 mg HS PO Last administered on 07/16/16 20:51 ; Start 07/12/16 at 21:00 Diltiazem HCl (Cardizem 24hr Cd) 240 mg DAILY PO ; Start 07/12/16 at 16:30; Stop 07/13/16 at 17:18; Status DC Insulin Aspart (Novolog) 10 units TIDAC SQ ; Start 07/12/16 at 16:30; Stop 07/12 at 16:30; Status DC Insulin Detemir (Levemir) 20 units QHS SQ ; Start 07/12/16 at 21:00; Stop at 21:00; Status DC Promethazine HCl/ Codeine (Phenergan With Codeine) 5 ml QID PO ; Start 07/12/16 at 17:00; Stop 07/13/16 at 17:18; Status DC Non-Formulary Medication 2 puff BID IH ; Start 07/12/16 at 21:00; Status UNV Non-Formulary Medication 2.5 gm DAILY IH ; Start 07/13/16 at 09:00; Status UNV Budesonide (Pulmicort) 0.5 mg RTBID NEB Last administered on 07/13/16 07:30; Start 07/12/16 at 20:00; Stop 07/13/16 at 11:27; Status DC Albuterol/ Ipratropium (Duoneb) 3 ml RTQID NEB Last administered on 07/16/16 07:47; Start 07/12/16 at 20:00; Stop 07/16/16 at 08:38; Status DC Methylprednisolone Sodium Succinate (Solu-Medrol 40mg Vial) 60 mg 1X ONCE IV Last administered on 07/12/16 16:06; Start 07/12/16 at 16:30; Stop 07/12/16 at 16:31; Status DC Methylprednisolone Sodium Succinate (Solu-Medrol 40mg Vial) 60 mg DAILY IV ; Start 07/13/16 at 09:00; Stop 07/13/16 at 09:00; Status DC Pantoprazole Sodium (Protonix Vial) 40 mg DAILY IVP Last administered on 08:43; Start 07/13/16 at 09:00 Diphenhydramine HCl 25 mg 25 mg PRN Q6HRS PRN IVP ANAPHYLAXIS Last administered on 07/12/16 16:06; Start 07/12/16 at 16:00 Sodium Chloride (Iv Sodium Chloride 0.9% 1000ml Bag) 1,000 ml @ 150 mls/hr Q6H40M IV Last administered on 07/14/16 01:21; Start 07/12/16 at 16:30; Stop 07/14/16 at 09:31; Status DC Albuterol/ Ipratropium (Duoneb) 3 ml QID NEB ; Start 07/12/16 at 17:00; Status UNV Albuterol Sulfate (Ventolin Neb Soln) 2.5 mg PRN Q2HR PRN NEB SHORTNESS OF BREATH Last administered on 07/15/16 04:15; Start 07/12/16 at 16:00 Insulin Aspart (Novolog) 0-9 UNITS QID SQ Last administered on 07/14/16 08:37 ; Start 07/12/16 at 17:00; Stop 07/14/16 at 09:31; Status DC Dextrose 12.5 gm PRN Q15MIN PRN IV SEE COMMENTS; Start 07/12/16 at 16:00; Stop 07/15/16 at 12:46; Status DC Insulin Detemir (Levemir) 15 units QHS SQ ; Start 07/12/16 at 21:00; Stop at 21:00; Status DC Enoxaparin Sodium (Lovenox 40mg Syringe) 40 mg DAILY SQ Last administered on 08:54; Start 07/12/16 at 16:30; Stop 07/15/16 at 14:28; Status DC Insulin Detemir (Levemir) 20 units QHS SQ Last administered on 07/12/16 23:49 ; Start 07/12/16 at 21:00; Stop 07/13/16 at 15:18; Status DC Succinylcholine Chloride 200 mg 200 mg STK-MED ONCE .ROUTE ; Start 07/12/16 at 17:46; Stop 07/12/16 at 17:47; Status DC Propofol (Diprivan) 100 ml @ As Directed STK-MED ONCE IV ; Start 07/12/16 at 17 :46; Stop 07/12/16 at 17:47; Status DC Lidocaine HCl 100 mg STK-MED ONCE .ROUTE ; Start 07/12/16 at 18:02; Stop at 18:03; Status DC Ketamine HCl 500 mg 1X ONCE IV ; Start 07/12/16 at 18:30; Stop 07/12/16 at 18: 31; Status DC Midazolam HCl (Versed) 5 mg STK-MED ONCE .ROUTE ; Start 07/12/16 at 18:14; Stop 07/12/16 at 18:15; Status DC Midazolam HCl (Versed) 2 mg 1X ONCE IV ; Start 07/12/16 at 18:30; Stop at 18:31; Status DC Glycopyrrolate (Robinul) 1 mg 1X ONCE IV ; Start 07/12/16 at 18:30; Stop at 18:31; Status DC Oxymetazoline HCl (Afrin) 2 spray 1X ONCE NS ; Start 07/12/16 at 18:30; Stop at 18:31; Status DC Lidocaine HCl 30 ml STK-MED ONCE .ROUTE ; Start 07/12/16 at 18:19; Stop at 18:20; Status DC Vecuronium [place] 6 mg 6 mg PRN Q4HRS PRN IV ANXIETY / AGITATION Last administered on 07/12/16 19:55; Start 07/12/16 at 19:00; Stop 07/15/16 at 07:58 ; Status DC Propofol (Diprivan) 100 ml @ 0 mls/hr CONT PRN IV SEE I/O RECORD Last administered on 07/14/16 13:42; Start 07/12/16 at 19:00; Stop 07/15/16 at 07:58 ; Status DC Insulin Aspart 10 units 10 units 1X ONCE SQ Last administered on 07/12/16 19: 41; Start 07/12/16 at 19:45; Stop 07/12/16 at 19:46; Status DC Vecuronium [place] 100 mg/ Dextrose 100 ml @ 0 mls/hr CONT PRN IV SEE I/O RECORD Last administered on 07/13/16 20:48; Start 07/12/16 at 21:00; Stop 07/14 at 09:31; Status DC Fentanyl Citrate (Fentanyl 600 Mcg/30 ml [employer]) 30 ml @ 0 mls/hr CONT PRN IV PROTOCOL Last administered on 07/14/16 09:33; Start 07/12/16 at 22:00; Stop at 07:58; Status DC Chlorhexidine Gluconate (Peridex) 15 ml BID MM Last administered on 07/15/16 21:28; Start 07/13/16 at 09:00 Methylprednisolone Sodium Succinate (Solu-Medrol 125mg Vial) 125 mg BID IV Last administered on 07/14/16 21:02; Start 07/13/16 at 09:00; Stop 07/15/16 at 07:58; Status DC Rocuronium [place] (Zemuron) 50 mg STK-MED ONCE .ROUTE ; Start 07/12/16 at 15:00 ; Stop 07/13/16 at 08:54; Status DC Glycopyrrolate (Robinul) 1 mg STK-MED ONCE .ROUTE ; Start 07/12/16 at 15:00; Stop 07/13/16 at 08:54; Status DC Lidocaine HCl 30 ml STK-MED ONCE .ROUTE ; Start 07/12/16 at 18:00; Stop at 09:05; Status DC Midazolam HCl (Versed) 5 mg STK-MED ONCE .ROUTE ; Start 07/12/16 at 18:00; Stop 07/13/16 at 09:05; Status DC Propofol (Diprivan) 1,000 mg STK-MED ONCE IV ; Start 07/12/16 at 18:00; Stop at 09:05; Status DC Succinylcholine Chloride (Anectine) 200 mg STK-MED ONCE .ROUTE ; Start 07/12/16 at 18:00; Stop 07/13/16 at 09:05; Status DC Multi-Ingred Cream/Lotion/Oil/ Oint (Artificial Tears Eye Oint) 1 margei PRN Q1HR PRN OU DRY EYE Last administered on 07/13/16 15:45; Start 07/13/16 at 11:00 Ketamine HCl 500 mg STK-MED ONCE .ROUTE ; Start 07/12/16 at 18:30; Stop at 12:05; Status DC Insulin Aspart (Novolog) 10 units 1X STAT SQ Last administered on 07/13/16 12 :36; Start 07/13/16 at 12:17; Stop 07/13/16 at 12:20; Status DC Insulin Aspart (Novolog) 10 units 1X ONCE SQ Last administered on 07/13/16 14 :31; Start 07/13/16 at 14:30; Stop 07/13/16 at 14:31; Status DC Insulin Detemir (Levemir) 40 units QHS SQ Last administered on 07/13/16 20:50 ; Start 07/13/16 at 21:00; Stop 07/14/16 at 09:31; Status DC Benzocaine (Hurricaine One) 1 spray STK-MED ONCE .ROUTE ; Start 07/12/16 at 12: 00; Stop 07/13/16 at 16:00; Status DC Lidocaine HCl 5 margie 5 margie STK-MED ONCE TP ; Start 07/12/16 at 12:00; Stop at 16:00; Status DC Insulin Human Regular/Sodium Chloride (Novolin R Vial/ Iv Normal Saline 150ml) 151.5 ml @ 0 mls/hr CONT PRN IV SEE I/O RECORD Last administered on 07/14/16 10:01; Start 07/14/16 at 09:30; Stop 07/15/16 at 07:58; Status DC Info 1 each 1 each PRN DAILY PRN MC SEE COMMENTS Last administered on 08:26; Start 07/14/16 at 09:30 Magnesium Sulfate/ Dextrose 50 ml @ 25 mls/hr PRN DAILY PRN IV for Mag < 1.7 on am labs; Start 07/14/16 at 11:15; Stop 07/15/16 at 07:58; Status DC Sodium Chloride 500 ml @ 500 mls/hr QID PRN IV UO< 30cc/hr over previous 6hrs ; Start 07/14/16 at 11:15; Stop 07/14/16 at 11:26; Status DC Sodium Chloride 500 ml @ 500 mls/hr PRN QID PRN IV UO< 30cc/hr over previous 6hrs Last administered on 07/16/16 10:00; Start 07/14/16 at 11:26 Ceftriaxone Sodium 1 gm/ Sodium Chloride 50 ml @ 100 mls/hr Q24H IV Last administered on 07/16/16 12:00; Start 07/14/16 at 12:00; Stop 07/20/16 at 12:29 Sodium Chloride/ Magnesium Sulfate/ Calcium Gluconate/ Multivitamins/ Chromium/ Copper/ Manganese/Seleni/ Zn/Total Parenteral Nutrition/Amino Acids/Dextrose ( Sodium Chloride/ Infuvite Adult/ Multitrace-5 Conc/ Tpn - Tpn Fluid/ Trophamine / Dextrose 70%-Water Iv Soln) 1,512 ml @ 63 mls/hr TPN CONT IV Last administered on 07/14/16 22:29; Start 07/14/16 at 22:00; Stop 07/15/16 at 21:59 ; Status DC Hydralazine HCl (Apresoline) 10 mg PRN Q4HRS PRN IVP ELEVATED BP, SEE COMMENTS ; Start 07/14/16 at 22:30 Methylprednisolone Sodium Succinate (Solu-Medrol 125mg Vial) 125 mg DAILY IV Last administered on 07/15/16 08:55; Start 07/15/16 at 09:00; Stop 07/16/16 at 08:35; Status DC Insulin Aspart (Novolog) 0-9 UNITS TIDWMEALS SQ Last administered on 07/15/16 16:16; Start 07/15/16 at 08:00; Stop 07/16/16 at 07:16; Status DC Dextrose 12.5 gm PRN Q15MIN PRN IV SEE COMMENTS; Start 07/15/16 at 08:00 Insulin Detemir (Levemir) 20 units QHS SQ Last administered on 07/15/16 21:48 ; Start 07/15/16 at 21:00; Stop 07/16/16 at 07:16; Status DC Insulin Aspart (Novolog) 10 units TIDAC SQ ; Start 07/15/16 at 11:30; Stop 07/16 at 07:16; Status DC Sodium Polystyrene Sulfonate (Kayexalate) 30 gm 1X ONCE PO ; Start 07/15/16 at 08:00; Stop 07/15/16 at 08:08; Status DC Hydrochlorothiazide (Microzide) 12.5 mg DAILY PO ; Start 07/15/16 at 09:00; Stop 07/16/16 at 07:39; Status DC Isosorbide Mononitrate (Imdur) 120 mg DAILY PO ; Start 07/15/16 at 09:00; Stop 07/15/16 at 09:00; Status DC Diltiazem HCl (Cardizem 24hr Cd) 240 mg DAILY PO ; Start 07/15/16 at 09:00; Stop 07/16/16 at 07:39; Status DC Guaifenesin (Mucinex) 600 mg BID PO ; Start 07/15/16 at 09:00; Stop 07/16/16 at 07:39; Status DC Mupirocin (Bactroban) 1 margie BID NS Last administered on 07/16/16t 20:49; Start 07/15/16 at 09:00 Isosorbide Mononitrate (Imdur) 120 mg DAILY PO ; Start 07/15/16 at 09:00; Stop 07/16/16 at 07:39; Status DC Sodium Bicarbonate 50 meq 1X ONCE IV Last administered on 07/15/16t 15:22; Start 07/15/16 at 10:45; Stop 07/15/16 at 10:46; Status DC Sodium Bicarbonate 50 meq 50 meq STK-MED ONCE .ROUTE ; Start 07/15/16 at 10:34; Stop 07/15/16 at 10:35; Status DC Dopamine HCl/ Dextrose 250 ml @ As Directed STK-MED ONCE IV ; Start 07/15/16 at 10:37; Stop 07/15/16 at 10:38; Status DC Midazolam HCl (Versed) 5 mg STK-MED ONCE .ROUTE ; Start 07/15/16 at 10:41; Stop 07/15/16 at 10:42; Status DC Iohexol 100 ml 100 ml STK-MED ONCE .ROUTE ; Start 07/15/16 at 10:45; Stop at 10:46; Status DC Heparin Sodium/ Sodium Chloride 1,500 ml @ As Directed STK-MED ONCE .ROUTE ; Start 07/15/16 at 10:45; Stop 07/15/16 at 10:46; Status DC Lidocaine HCl 20 ml 20 ml STK-MED ONCE .ROUTE ; Start 07/15/16 at 10:45; Stop at 10:46; Status DC Dopamine HCl/ Dextrose 250 ml @ 16.255 mls/ hr CONT PRN IV SEE I/O RECORD Last administered on 07/16/16 23:10; Start 07/15/16 at 11:00 Sodium Chloride 1,000 ml @ 1,000 mls/hr 1X ONCE IV Last administered on 11:00; Start 07/15/16 at 11:00; Stop 07/15/16 at 11:59; Status DC Norepinephrine Bitartrate/Sodium Chloride (Levophed Vial/ Iv Sodium Chloride 0.9 % 250ml) 258 ml @ 0 mls/hr CONT PRN IV SEE I/O RECORD Last administered on 07/17 00:51; Start 07/15/16 at 11:00 Midazolam HCl (Versed) 5 mg STK-MED ONCE .ROUTE ; Start 07/15/16 at 10:54; Stop 07/15/16 at 10:55; Status DC Fentanyl Citrate (Fentanyl 2ml Vial) 100 mcg STK-MED ONCE .ROUTE ; Start at 11:02; Stop 07/15/16 at 11:03; Status DC Vecuronium [place] 10 mg 10 mg STK-MED ONCE IV ; Start 07/15/16 at 11:03; Stop 07/15/16 at 11:04; Status DC Midazolam HCl (Versed 100mg/ 100ml Premix) 100 ml @ As Directed STK-MED ONCE IV ; Start 07/15/16 at 11:03; Stop 07/15/16 at 11:04; Status DC Iohexol (Omnipaque 300 Mg/ml) 112 ml 1X ONCE IART Last administered on 11:56; Start 07/15/16 at 12:00; Stop 07/15/16 at 12:01; Status DC Lidocaine HCl 10 ml 1X ONCE IJ Last administered on 07/15/16 11:57; Start at 12:00; Stop 07/15/16 at 12:01; Status DC Heparin Sodium/ Sodium Chloride 1000 unit 1,000 unit 1X ONCE IART ; Start 07/15 at 12:00; Stop 07/15/16 at 12:01; Status DC Sodium Chloride/ Magnesium Sulfate/ Calcium Gluconate/ Multivitamins/ Chromium/ Copper/ Manganese/Seleni/ Zn/Total Parenteral Nutrition/Amino Acids/Dextrose ( Sodium Chloride/ Infuvite Adult/ Multitrace-5 Conc/ Tpn - Tpn Fluid/ Trophamine / Dextrose 70%-Water Iv Soln) 1,512 ml @ 63 mls/hr TPN CONT IV Last administered on 07/15/16 21:27; Start 07/15/16 at 22:00; Stop 07/16/16 at 21:59 ; Status DC Iohexol (Omnipaque 300 Mg/ml) 75 ml 1X ONCE IV Last administered on 07/15/16 13:43; Start 07/15/16 at 13:15; Stop 07/15/16 at 13:16; Status DC Info (Do NOT chart on this entry -- for MONITORING) 1 each PRN DAILY PRN MC SEE COMMENTS; Start 07/15/16 at 13:15; Stop 07/17/16 at 13:14 Heparin Sodium (Porcine) 7000 unit 7,000 unit 1X ONCE IV Last administered on 07/15/16 15:27; Start 07/15/16 at 14:45; Stop 07/15/16 at 14:46; Status DC Heparin Sodium/ Dextrose 500 ml @ 0 mls/hr CONT PRN IV SEE I/O RECORD Last administered on 07/16/16 17:43; Start 07/15/16 at 14:30 Heparin Sodium (Porcine) 2,600 unit PRN Q6HRS PRN IV FOR UFH LEVEL LESS THAN 0.2; Start 07/15/16 at 14:30 Heparin Sodium (Porcine) 1,300 unit PRN Q6HRS PRN IV FOR UFH LEVEL 0.2 - 0.29; Start 07/15/16 at 14:30 Warfarin Sodium (Coumadin Per Pharmacy) 1 each PRN DAILY PRN MC PER PROTOCOL; Start 07/15/16 at 14:30; Stop 07/15/16 at 14:30; Status DC Sodium Bicarbonate 50 meq 50 meq 1X ONCE IV Last administered on 07/15/16 16: 30; Start 07/15/16 at 16:30; Stop 07/15/16 at 16:34; Status DC Alteplase, Recombinant (Activase) 100 ml @ 50 mls/hr 1X ONCE IV Last administered on 07/15/16 17:30; Start 07/15/16 at 17:30; Stop 07/15/16 at 19:29 ; Status DC Fentanyl Citrate (Fentanyl 2ml Vial) 25 mcg PRN Q1HR PRN IV COMM; Start at 22:30; Stop 07/16/16 at 07:17; Status DC Fentanyl Citrate (Fentanyl 2ml Vial) 50 mcg PRN Q1HR PRN IV COMM Last administered on 07/16/16 05:30; Start 07/15/16 at 22:30; Stop 07/16/16 at 07:17 ; Status DC Scopolamine (Transderm-Scop) 1 patch Q3DAYS TD ; Start 07/18/16 at 09:00 Scopolamine 1 patch 1 patch ONCE ONCE TD ; Start 07/15/16 at 23:30; Stop at 23:31; Status DC Sodium Chloride 1,000 ml @ 1,000 mls/hr 1X ONCE IV Last administered on 02:38; Start 07/16/16 at 01:00; Stop 07/16/16 at 01:59; Status DC Midazolam HCl 100 ml @ As Directed STK-MED ONCE IV ; Start 07/16/16 at 01:00; Stop 07/16/16 at 01:01; Status DC Midazolam HCl 100 ml @ 0 mls/hr CONT PRN IV SEE I/O RECORD Last administered on 07/17/16 08:12; Start 07/16/16 at 01:15 Vasopressin 40 unit/Dextrose 102 ml @ 6 mls/hr CONT PRN IV SEE I/O RECORD Last administered on 07/16/16 17:44; Start 07/16/16 at 05:00 Insulin Human Regular 150 unit/ Sodium Chloride 151.5 ml @ 0 mls/hr CONT PRN IV SEE I/O RECORD Last administered on 07/17/16 02:26; Start 07/16/16 at 05:00 Fentanyl Citrate (Fentanyl 600 Mcg/30 ml [employer]) 30 ml @ 0 mls/hr CONT PRN IV PROTOCOL Last administered on 07/17/16 05:23; Start 07/16/16 at 07:15 Vecuronium [place] (Norcuron Bolus) 10 mg STK-MED ONCE IV ; Start 07/15/16 at 11 :00; Stop 07/16/16 at 08:06; Status DC Fentanyl Citrate (Fentanyl 2ml Vial) 100 mcg STK-MED ONCE .ROUTE ; Start at 11:00; Stop 07/16/16 at 08:06; Status DC Midazolam HCl (Versed) 10 mg STK-MED ONCE .ROUTE ; Start 07/15/16 at 11:00; Stop 07/16/16 at 08:06; Status DC Dopamine HCl/ Dextrose 400 mg STK-MED ONCE IV ; Start 07/15/16 at 11:00; Stop at 08:06; Status DC Sodium Bicarbonate 50 meq STK-MED ONCE .ROUTE ; Start 07/15/16 at 11:00; Stop at 08:06; Status DC Hydrocortisone Sodium Succinate (Solu-Cortef) 100 mg Q8HRS IV Last administered on 07/17/16 07:14; Start 07/16/16 at 09:00 Sodium Polystyrene Sulfonate 30 gm 30 gm 1X ONCE PO Last administered on 08:41; Start 07/16/16 at 08:30; Stop 07/16/16 at 08:34; Status DC Albumin Human (Plasmanate) 500 ml @ 125 mls/hr PRN Q6HRS PRN IV for CVP < 10; MAP < 65 Last administered on 07/17/16 08:12; Start 07/16/16 at 08:30 Sodium Bicarbonate 50 meq 1X ONCE IV Last administered on 07/16/16 08:41; Start 07/16/16 at 08:45; Stop 07/16/16 at 08:46; Status DC Info (Anti-Coagulation Monitoring By Pharmacy) 1 each PRN DAILY PRN MC SEE COMMENTS; Start 07/16/16 at 08:45 Ipratropium [place] (Atrovent) 0.5 mg RTQID NEB Last administered on 07/17/16 07:23; Start 07/16/16 at 12:00 Lidocaine/Sodium Bicarbonate (Buffered Lidocaine 1%) 3 ml 1X ONCE IJ Last administered on 07/16/16 10:43; Start 07/16/16 at 09:15; Stop 07/16/16 at 09:16 ; Status DC Heparin Sodium/ Sodium Chloride 60 unit 1X ONCE IV Last administered on 10:44; Start 07/16/16 at 09:15; Stop 07/16/16 at 09:16; Status DC Heparin Sodium (Porcine) 2500 unit 2,500 unit 1X ONCE INT CAT Last administered on 07/16/16 10:44; Start 07/16/16 at 09:15; Stop 07/16/16 at 09:16 ; Status DC Sodium Chloride 40 meq/Sodium Acetate 40 meq/ Magnesium Sulfate 8 meq/Calcium Gluconate 5 meq/ Multivitamins 10 ml/Chromium/ Copper/Manganese/ Seleni/Zn 1 ml / Insulin Human Regular 10 unit/ Total Parenteral Nutrition/Amino Acids/Dextrose / Fat Emulsion Intravenous 1,512 ml @ 63 mls/hr TPN CONT IV Last administered on 07/16/16 21:53; Start 07/16/16 at 22:00; Stop 07/17/16 at 21:59 Pantoprazole Sodium 80 mg/ Sodium Chloride 100 ml @ 10 mls/hr Q10H IV Last administered on 07/17/16 08:16; Start 07/17/16 at 06:45 Sodium Acetate/ Potassium Acetate/ Magnesium Sulfate/ Calcium Gluconate/ Multivitamins/ Chromium/Copper/ Manganese/Seleni/ Zn/Insulin Human Regular/ Total Parenteral Nutrition/Amino Acids/Dextrose/ Fat Emulsion Intravenous ( Calcium Gluconate/ Infuvite Adult/ Multitrace-5 Conc/ Novolin R Vi... 1,512 ml @ 63 mls/hr TPN CONT IV ; Start 07/17/16 at 22:00; Stop 07/18/16 at 21:59 Active Scripts Active Levemir Flextouch (Insulin Detemir) 100 Unit/1 Ml Insuln.pen 20 Units SQ QHS 30 Days Novolog Flexpen (Insulin Aspart) 100 Unit/1 Ml Insuln.pen 10 Units SQ TIDAC 30 Days Reported Advair 100-50 Diskus (Fluticasone/Salmeterol) 1 Each Disk.w.dev 1 Puff IH BID Spiriva Respimat (Tiotropium [place]) 4 Gm Mist.inhal 2.5 Gm IH DAILY Symbicort 160-4.5 Mcg Inhaler (Budesonide/Formoterol Fumarate) 10.2 Gm Hfa.aer.ad 2 Puff IH BID Atorvastatin Calcium 20 Mg Tablet 20 Mg PO HS Lisinopril-Hctz 10-12.5 Mg Tab (Lisinopril/Hydrochlorothiazide) 1 Each Tablet 1 Tab PO DAILY Isosorbide Mononitrate Er (Isosorbide Mononitrate) 120 Mg Tab.er.24h 120 Mg PO DAILY Novolin N (Nph, Human Insulin Isophane) 100 Unit/1 Ml Vial 0 SQ Promethazine-Codeine Syrup (Promethazine Hcl/Codeine) 118 Ml Syrup 5 Ml PO Q4- 6HRS Diltiazem 24HR Cd (Diltiazem Hcl) 240 Mg Cap.er.24h 240 Mg PO DAILY NITROGLYCERIN SubLingual (Nitroglycerin) 0.4 Mg Tab.subl 0.4 Mg SL PRN Q5MIN PRN Atorvastatin Calcium 40 Mg Tablet 40 Mg PO HS Vitals/I & O Vital Sign - Last 24 Hours 07/16/16 07/16/16 07/16/16 07/16/16 11:00 11:27 12:00 12:00 Pulse 133 Resp 25 B/P 136/59 131/60 Pulse Ox 97 97 O2 Delivery Ventilator Ventilator Mechanical Ventilator 07/16/16 07/16/16 07/16/16 07/16/16 12:00 13:00 14:00 15:00 Temp 98.8 98.8 Pulse 134 132 128 128 Resp 25 25 25 25 B/P 127/60 151/64 176/69 172/69 Pulse Ox 98 97 100 100 O2 Delivery Ventilator Ventilator Ventilator Ventilator 07/16/16 07/16/16 07/16/16 07/16/16 15:05 16:00 16:00 16:00 Temp 98.2 98.2 Pulse 129 Resp 25 B/P 150/59 154/60 Pulse Ox 100 99 O2 Delivery Ventilator Mechanical Ventilator Ventilator 07/16/16 07/16/16 07/16/16 07/16/16 17:00 17:23 17:30 18:00 Pulse 123 Resp 25 B/P 120/59 Pulse Ox 100 100 100 100 O2 Delivery Ventilator Ventilator O2 Flow Rate 3.0 3.0 07/16/16 07/16/16 07/16/16 07/16/16 18:00 19:00 19:44 20:00 Pulse 118 118 Resp 25 25 B/P 137/59 132/60 Pulse Ox 100 100 100 O2 Delivery Ventilator Ventilator Ventilator Mechanical Ventilator 07/16/16 07/16/16 07/16/16 07/16/16 20:00 20:00 21:00 22:00 Temp 98.5 98.5 Pulse 118 116 114 Resp 25 25 25 B/P 100/48 100/48 134/58 130/54 Pulse Ox 100 100 100 O2 Delivery Ventilator Ventilator Ventilator 07/16/16 07/16/16 07/17/16 07/17/16 23:00 23:15 00:00 00:00 Pulse 117 117 Resp 25 B/P 103/48 110/51 Pulse Ox 100 O2 Delivery Ventilator Ventilator Mechanical Ventilator Ventilator 07/17/16 07/17/16 07/17/16 07/17/16 00:00 00:00 01:00 01:50 Temp 98.7 98.7 Pulse 116 Resp 25 B/P 119/53 Pulse Ox 99 100 O2 Delivery Ventilator Ventilator 07/17/16 07/17/16 07/17/16 07/17/16 02:00 03:00 03:53 04:00 Temp 98.7 98.7 Pulse 115 115 115 Resp 25 B/P 128/55 134/55 124/54 Pulse Ox 100 100 100 100 O2 Delivery Ventilator Ventilator Ventilator Ventilator 07/17/16 07/17/16 07/17/16 07/17/16 04:00 04:00 05:00 05:23 Pulse 113 Resp 25 B/P 137/56 Pulse Ox 100 100 O2 Delivery Mechanical Ventilator Ventilator Ventilator 07/17/16 07/17/16 07/17/16 06:00 07:23 08:46 Pulse 112 Resp 25 B/P 140/61 Pulse Ox 100 100 100 O2 Delivery Ventilator Ventilator Ventilator Intake and Output 07/16/16 07/16/16 07/17/16 15:00 23:00 07:00 Intake Total 4915 ml 1565.8 ml Output Total 165 ml 350 ml 300 ml Balance -165 ml 4565 ml 1265.8 ml BALA BRYANT MD Jul 17, 2016 10:15
[2016-07-17] MEDS ORDERED: IOHEXOL 300 MG/ML 100ML VIAL. ONE (10:45)
[2016-07-17] MEDS ORDERED: LIDOCAINE 1% / SOD BICARB 8.4% 20 ML VIAL. IJ ONE ×2 (10:45→11:15)
--- NOTE | 2016-07-17 10:45 | PDOC ---
PROGRESS NOTES Subjective Subjective SEEN IN FOLLOW UP OF ARF DUE TO ATN Objective Objective Vital Signs Date Time Temp Pulse Resp B/P Pulse Ox O2 Delivery O2 Flow Rate FiO2 07/17/16 08:46 100 Ventilator 07/17/16 06:00 112 25 140/61 07/17/16 04:00 98.7 98.7 07/16/16 18:00 3.0 Intake and Output 07/17/16 07:00 Intake Total 6480.8 ml Output Total 815 ml Balance 5665.8 ml IV Total 6160.8 ml Other 320 ml Output Urine Total 815 ml Physical Exam Abdomen: Normal bowel sounds, Soft, No tenderness, No hepatosplenomegaly, No masses Heart: Regular rate, Normal S1, Normal S2, No murmurs, Gallops Extremities: No clubbing, No cyanosis, No edema, Normal pulses, No tenderness/ swelling General: Other (SEDATED) Lungs: Other (ON VENT) Psych/Mental Status: Other (SEDATED) Diagnosis RENAL FAILURE: Acute (Acute tubular necrosis) Assessment Assessment Problems Medical Problems: (1) COPD exacerbation Status: Acute (2) Hyperglycemia Status: Acute Plan Plan of Care GFR IS STABLE. HE IS FOR IVC FILTER TODAY. NO DIALYSIS TODAY Comment Review of Relevant I have reviewed the following items valerie (where applicable) has been applied. Labs Laboratory Tests Test 07/15/16 11:40 07/15/16 16:15 07/15/16 17:04 07/15/16 21:35 O2 Saturation 100% (92-99) Arterial Blood pH 6.93 (7.35-7.45) Arterial Blood pCO2 at Patient Temp 88mmHg (35-46) Arterial Blood pO2 at Patient Temp > 503mmHg (65-108) Arterial Blood HCO3 18mmol/L (21-28) Arterial Blood Base Excess -15mmol/L (-3-3) FiO2 100 Glucose (Fingerstick) 280mg/dL (70-99) 302mg/dL (70-99) Bedside Creatinine 1.3mg/dL (0.7-1.3) Test 07/15/16 23:55 07/16/16 02:15 07/16/16 03:55 07/16/16 07:17 Lactic Acid Level 0.9mmol/L (0.4-2.0) Heparin Anti-Xa Act, Unfractionated 1.07IU/mL (0.30-0.70) White Blood Count 12.0x10^3/uL (4.0-11.0) Red Blood Count 3.08x10^6/uL (4.30-5.70) Hemoglobin 8.2g/dL (13.0-17.5) Hematocrit 26.5% (39.0-53.0) Mean Corpuscular Volume 86fL (79-100) Mean Corpuscular Hemoglobin 27pg (25-35) Mean Corpuscular Hemoglobin Concent 31g/dL (31-37) Red Cell Distribution Width 14.4% (11.5-14.5) Platelet Count 390x10^3/uL (140-400) Neutrophils (%) (Auto) 69% (31-73) Lymphocytes (%) (Auto) 19% (24-48) Monocytes (%) (Auto) 12% (0-9) Eosinophils (%) (Auto) 0% (0-3) Basophils (%) (Auto) 1% (0-3) Neutrophils # (Auto) 8.3x10^3uL (1.8-7.7) Lymphocytes # (Auto) 2.3x10^3/uL (1.0-4.8) Monocytes # (Auto) 1.4x10^3/uL (0.0-1.1) Eosinophils # (Auto) 0.0x10^3/uL (0.0-0.7) Basophils # (Auto) 0.1x10^3/uL (0.0-0.2) Sodium Level 142mmol/L (136-145) Potassium Level 5.8mmol/L (3.5-5.1) Chloride Level 109mmol/L (98-107) Carbon Dioxide Level 24mmol/L (21-32) Anion Gap 9 (6-14) Blood Urea Nitrogen 66mg/dL (8-26) Creatinine 2.0mg/dL (0.7-1.3) Estimated GFR (Cockcroft-Gault) 39.8 BUN/Creatinine Ratio 33 (6-20) Glucose Level 437mg/dL (70-99) Calcium Level 8.0mg/dL (8.5-10.1) Phosphorus Level 6.9mg/dL (2.6-4.7) Magnesium Level 2.4mg/dL (1.8-2.4) Total Bilirubin 0.3mg/dL (0.2-1.0) Aspartate Amino Transf (AST/SGOT) 219U/L (15-37) Alanine Aminotransferase (ALT/SGPT) 227U/L (16-63) Alkaline Phosphatase 225U/L (46-116) Total Protein 5.4g/dL (6.4-8.2) Albumin 1.6g/dL (3.4-5.0) Albumin/Globulin Ratio 0.4 (1.0-1.7) Glucose (Fingerstick) 356mg/dL (70-99) Test 07/16/16 07:55 07/16/16 08:00 07/16/16 08:36 07/16/16 09:10 Heparin Anti-Xa Act, Unfractionated > 1.10IU/mL (0.30-0.70) O2 Saturation 93% (92-99) Arterial Blood pH 7.19 (7.35-7.45) Arterial Blood pCO2 at Patient Temp 45mmHg (35-46) Arterial Blood pO2 at Patient Temp 88mmHg (65-108) Arterial Blood HCO3 17mmol/L (21-28) Arterial Blood Base Excess -11mmol/L (-3-3) Glucose (Fingerstick) 348mg/dL (70-99) Lactic Acid Level 3.8mmol/L (0.4-2.0) Test 07/16/16 09:41 07/16/16 10:55 07/16/16 12:00 07/16/16 12:15 Glucose (Fingerstick) 300mg/dL (70-99) 265mg/dL (70-99) 220mg/dL (70-99) Heparin Anti-Xa Act, Unfractionated 0.64IU/mL (0.30-0.70) Potassium Level 4.4mmol/L (3.5-5.1) Test 07/16/16 13:04 07/16/16 14:08 07/16/16 15:19 07/16/16 16:25 Glucose (Fingerstick) 192mg/dL (70-99) 159mg/dL (70-99) 149mg/dL (70-99) 123mg/dL (70-99) Test 07/16/16 17:33 07/16/16 18:00 07/16/16 18:37 07/16/16 19:52 Glucose (Fingerstick) 123mg/dL (70-99) 116mg/dL (70-99) 116mg/dL (70-99) Heparin Anti-Xa Act, Unfractionated 0.41IU/mL (0.30-0.70) Test 07/16/16 20:56 07/16/16 22:00 07/16/16 23:04 07/17/16 00:13 Glucose (Fingerstick) 120mg/dL (70-99) 161mg/dL (70-99) 156mg/dL (70-99) 144mg/dL (70-99) Test 07/17/16 01:17 07/17/16 02:22 07/17/16 03:24 07/17/16 04:28 Glucose (Fingerstick) 153mg/dL (70-99) 162mg/dL (70-99) 152mg/dL (70-99) 139mg/dL (70-99) Test 07/17/16 05:30 07/17/16 05:33 07/17/16 06:46 07/17/16 07:42 White Blood Count 12.4x10^3/uL (4.0-11.0) Red Blood Count 1.94x10^6/uL (4.30-5.70) Hemoglobin 5.3g/dL (13.0-17.5) Hematocrit 16.2% (39.0-53.0) Mean Corpuscular Volume 83fL (79-100) Mean Corpuscular Hemoglobin 27pg (25-35) Mean Corpuscular Hemoglobin Concent 33g/dL (31-37) Red Cell Distribution Width 14.5% (11.5-14.5) Platelet Count 257x10^3/uL (140-400) Neutrophils (%) (Auto) 82% (31-73) Lymphocytes (%) (Auto) 10% (24-48) Monocytes (%) (Auto) 8% (0-9) Eosinophils (%) (Auto) 0% (0-3) Basophils (%) (Auto) 0% (0-3) Neutrophils # (Auto) 10.1x10^3uL (1.8-7.7) Lymphocytes # (Auto) 1.2x10^3/uL (1.0-4.8) Monocytes # (Auto) 1.0x10^3/uL (0.0-1.1) Eosinophils # (Auto) 0.0x10^3/uL (0.0-0.7) Basophils # (Auto) 0.0x10^3/uL (0.0-0.2) Heparin Anti-Xa Act, Unfractionated 0.35IU/mL (0.30-0.70) Sodium Level 146mmol/L (136-145) Potassium Level 4.1mmol/L (3.5-5.1) Chloride Level 113mmol/L (98-107) Carbon Dioxide Level 24mmol/L (21-32) Anion Gap 9 (6-14) Blood Urea Nitrogen 76mg/dL (8-26) Creatinine 2.2mg/dL (0.7-1.3) Estimated GFR (Cockcroft-Gault) 35.7 BUN/Creatinine Ratio 35 (6-20) Glucose Level 146mg/dL (70-99) Calcium Level 7.4mg/dL (8.5-10.1) Phosphorus Level 5.8mg/dL (2.6-4.7) Magnesium Level 2.5mg/dL (1.8-2.4) Total Bilirubin 0.2mg/dL (0.2-1.0) Aspartate Amino Transf (AST/SGOT) 1105U/L (15-37) Alanine Aminotransferase (ALT/SGPT) 786U/L (16-63) Alkaline Phosphatase 135U/L (46-116) Total Protein 4.9g/dL (6.4-8.2) Albumin 1.8g/dL (3.4-5.0) Albumin/Globulin Ratio 0.6 (1.0-1.7) Glucose (Fingerstick) 150mg/dL (70-99) 128mg/dL (70-99) 144mg/dL (70-99) Test 07/17/16 08:00 O2 Saturation 97% (92-99) Arterial Blood pH 7.35 (7.35-7.45) Arterial Blood pCO2 at Patient Temp 38mmHg (35-46) Arterial Blood pO2 at Patient Temp 114mmHg (65-108) Arterial Blood HCO3 21mmol/L (21-28) Arterial Blood Base Excess -4mmol/L (-3-3) FiO2 40 Laboratory Tests Test 07/16/16 10:55 07/16/16 12:00 07/16/16 12:15 07/16/16 13:04 Glucose (Fingerstick) 265mg/dL (70-99) 220mg/dL (70-99) 192mg/dL (70-99) Heparin Anti-Xa Act, Unfractionated 0.64IU/mL (0.30-0.70) Potassium Level 4.4mmol/L (3.5-5.1) Test 07/16/16 14:08 07/16/16 15:19 07/16/16 16:25 07/16/16 17:33 Glucose (Fingerstick) 159mg/dL (70-99) 149mg/dL (70-99) 123mg/dL (70-99) 123mg/dL (70-99) Test 07/16/16 18:00 07/16/16 18:37 07/16/16 19:52 07/16/16 20:56 Heparin Anti-Xa Act, Unfractionated 0.41IU/mL (0.30-0.70) Glucose (Fingerstick) 116mg/dL (70-99) 116mg/dL (70-99) 120mg/dL (70-99) Test 07/16/16 22:00 07/16/16 23:04 07/17/16 00:13 07/17/16 01:17 Glucose (Fingerstick) 161mg/dL (70-99) 156mg/dL (70-99) 144mg/dL (70-99) 153mg/dL (70-99) Test 07/17/16 02:22 07/17/16 03:24 07/17/16 04:28 07/17/16 05:30 Glucose (Fingerstick) 162mg/dL (70-99) 152mg/dL (70-99) 139mg/dL (70-99) White Blood Count 12.4x10^3/uL (4.0-11.0) Red Blood Count 1.94x10^6/uL (4.30-5.70) Hemoglobin 5.3g/dL (13.0-17.5) Hematocrit 16.2% (39.0-53.0) Mean Corpuscular Volume 83fL (79-100) Mean Corpuscular Hemoglobin 27pg (25-35) Mean Corpuscular Hemoglobin Concent 33g/dL (31-37) Red Cell Distribution Width 14.5% (11.5-14.5) Platelet Count 257x10^3/uL (140-400) Neutrophils (%) (Auto) 82% (31-73) Lymphocytes (%) (Auto) 10% (24-48) Monocytes (%) (Auto) 8% (0-9) Eosinophils (%) (Auto) 0% (0-3) Basophils (%) (Auto) 0% (0-3) Neutrophils # (Auto) 10.1x10^3uL (1.8-7.7) Lymphocytes # (Auto) 1.2x10^3/uL (1.0-4.8) Monocytes # (Auto) 1.0x10^3/uL (0.0-1.1) Eosinophils # (Auto) 0.0x10^3/uL (0.0-0.7) Basophils # (Auto) 0.0x10^3/uL (0.0-0.2) Heparin Anti-Xa Act, Unfractionated 0.35IU/mL (0.30-0.70) Sodium Level 146mmol/L (136-145) Potassium Level 4.1mmol/L (3.5-5.1) Chloride Level 113mmol/L (98-107) Carbon Dioxide Level 24mmol/L (21-32) Anion Gap 9 (6-14) Blood Urea Nitrogen 76mg/dL (8-26) Creatinine 2.2mg/dL (0.7-1.3) Estimated GFR (Cockcroft-Gault) 35.7 BUN/Creatinine Ratio 35 (6-20) Glucose Level 146mg/dL (70-99) Calcium Level 7.4mg/dL (8.5-10.1) Phosphorus Level 5.8mg/dL (2.6-4.7) Magnesium Level 2.5mg/dL (1.8-2.4) Total Bilirubin 0.2mg/dL (0.2-1.0) Aspartate Amino Transf (AST/SGOT) 1105U/L (15-37) Alanine Aminotransferase (ALT/SGPT) 786U/L (16-63) Alkaline Phosphatase 135U/L (46-116) Total Protein 4.9g/dL (6.4-8.2) Albumin 1.8g/dL (3.4-5.0) Albumin/Globulin Ratio 0.6 (1.0-1.7) Test 07/17/16 05:33 07/17/16 06:46 07/17/16 07:42 07/17/16 08:00 Glucose (Fingerstick) 150mg/dL (70-99) 128mg/dL (70-99) 144mg/dL (70-99) O2 Saturation 97% (92-99) Arterial Blood pH 7.35 (7.35-7.45) Arterial Blood pCO2 at Patient Temp 38mmHg (35-46) Arterial Blood pO2 at Patient Temp 114mmHg (65-108) Arterial Blood HCO3 21mmol/L (21-28) Arterial Blood Base Excess -4mmol/L (-3-3) FiO2 40 Microbiology 07/15/16 Blood Culture - Preliminary, Resulted NO GROWTH AFTER 1 DAY 07/14/16 Urine Culture - Final, Complete 07/14/16 Urine Culture Result 1 (MARÍA) - Final, Complete 07/14/16 Urine Culture Result 2 (MARÍA) - Final, Complete 07/14/16 Antimicrobic Susceptibility - Final, Complete Medications Current Medications Albuterol/ Ipratropium (Duoneb) 6 ml 1X ONCE NEB Last administered on 12:34; Start 07/12/16 at 12:30; Stop 07/12/16 at 12:31; Status DC Prednisone 60 mg 60 mg 1X ONCE PO Last administered on 07/12/16 12:40; Start 07/12/16 at 12:30; Stop 07/12/16 at 12:31; Status DC Sodium Chloride (Iv Sodium Chloride 0.9% 1000ml Bag) 1,000 ml @ 1,000 mls/hr 1X ONCE IV Last administered on 07/12/16 13:12; Start 07/12/16 at 13:15; Stop 07/12/16 at 14:14; Status DC Insulin Human Regular (Novolin R Vial) 10 unit 1X ONCE IV Last administered on 07/12/16 13:16; Start 07/12/16 at 13:15; Stop 07/12/16 at 13:16; Status DC Diphenhydramine HCl (Benadryl) 50 mg STK-MED ONCE .ROUTE ; Start 07/12/16 at 14: 55; Stop 07/12/16 at 14:56; Status DC Diphenhydramine HCl (Benadryl) 50 mg 1X ONCE IVP Last administered on 15:15; Start 07/12/16 at 15:15; Stop 07/12/16 at 15:16; Status DC Atorvastatin Calcium (Lipitor) 40 mg HS PO Last administered on 07/16/16 20:51 ; Start 07/12/16 at 21:00 Diltiazem HCl (Cardizem 24hr Cd) 240 mg DAILY PO ; Start 07/12/16 at 16:30; Stop 07/13/16 at 17:18; Status DC Insulin Aspart (Novolog) 10 units TIDAC SQ ; Start 07/12/16 at 16:30; Stop 07/12 at 16:30; Status DC Insulin Detemir (Levemir) 20 units QHS SQ ; Start 07/12/16 at 21:00; Stop at 21:00; Status DC Promethazine HCl/ Codeine (Phenergan With Codeine) 5 ml QID PO ; Start 07/12/16 at 17:00; Stop 07/13/16 at 17:18; Status DC Non-Formulary Medication 2 puff BID IH ; Start 07/12/16 at 21:00; Status UNV Non-Formulary Medication 2.5 gm DAILY IH ; Start 07/13/16 at 09:00; Status UNV Budesonide (Pulmicort) 0.5 mg RTBID NEB Last administered on 07/13/16 07:30; Start 07/12/16 at 20:00; Stop 07/13/16 at 11:27; Status DC Albuterol/ Ipratropium (Duoneb) 3 ml RTQID NEB Last administered on 07/16/16 07:47; Start 07/12/16 at 20:00; Stop 07/16/16 at 08:38; Status DC Methylprednisolone Sodium Succinate (Solu-Medrol 40mg Vial) 60 mg 1X ONCE IV Last administered on 07/12/16 16:06; Start 07/12/16 at 16:30; Stop 07/12/16 at 16:31; Status DC Methylprednisolone Sodium Succinate (Solu-Medrol 40mg Vial) 60 mg DAILY IV ; Start 07/13/16 at 09:00; Stop 07/13/16 at 09:00; Status DC Pantoprazole Sodium (Protonix Vial) 40 mg DAILY IVP Last administered on 08:43; Start 07/13/16 at 09:00 Diphenhydramine HCl 25 mg 25 mg PRN Q6HRS PRN IVP ANAPHYLAXIS Last administered on 07/12/16 16:06; Start 07/12/16 at 16:00 Sodium Chloride (Iv Sodium Chloride 0.9% 1000ml Bag) 1,000 ml @ 150 mls/hr Q6H40M IV Last administered on 07/14/16 01:21; Start 07/12/16 at 16:30; Stop 07/14/16 at 09:31; Status DC Albuterol/ Ipratropium (Duoneb) 3 ml QID NEB ; Start 07/12/16 at 17:00; Status UNV Albuterol Sulfate (Ventolin Neb Soln) 2.5 mg PRN Q2HR PRN NEB SHORTNESS OF BREATH Last administered on 07/15/16 04:15; Start 07/12/16 at 16:00 Insulin Aspart (Novolog) 0-9 UNITS QID SQ Last administered on 07/14/16 08:37 ; Start 07/12/16 at 17:00; Stop 07/14/16 at 09:31; Status DC Dextrose 12.5 gm PRN Q15MIN PRN IV SEE COMMENTS; Start 07/12/16 at 16:00; Stop 07/15/16 at 12:46; Status DC Insulin Detemir (Levemir) 15 units QHS SQ ; Start 07/12/16 at 21:00; Stop at 21:00; Status DC Enoxaparin Sodium (Lovenox 40mg Syringe) 40 mg DAILY SQ Last administered on 08:54; Start 07/12/16 at 16:30; Stop 07/15/16 at 14:28; Status DC Insulin Detemir (Levemir) 20 units QHS SQ Last administered on 07/12/16 23:49 ; Start 07/12/16 at 21:00; Stop 07/13/16 at 15:18; Status DC Succinylcholine Chloride 200 mg 200 mg STK-MED ONCE .ROUTE ; Start 07/12/16 at 17:46; Stop 07/12/16 at 17:47; Status DC Propofol (Diprivan) 100 ml @ As Directed STK-MED ONCE IV ; Start 07/12/16 at 17 :46; Stop 07/12/16 at 17:47; Status DC Lidocaine HCl 100 mg STK-MED ONCE .ROUTE ; Start 07/12/16 at 18:02; Stop at 18:03; Status DC Ketamine HCl 500 mg 1X ONCE IV ; Start 07/12/16 at 18:30; Stop 07/12/16 at 18: 31; Status DC Midazolam HCl (Versed) 5 mg STK-MED ONCE .ROUTE ; Start 07/12/16 at 18:14; Stop 07/12/16 at 18:15; Status DC Midazolam HCl (Versed) 2 mg 1X ONCE IV ; Start 07/12/16 at 18:30; Stop at 18:31; Status DC Glycopyrrolate (Robinul) 1 mg 1X ONCE IV ; Start 07/12/16 at 18:30; Stop at 18:31; Status DC Oxymetazoline HCl (Afrin) 2 spray 1X ONCE NS ; Start 07/12/16 at 18:30; Stop at 18:31; Status DC Lidocaine HCl 30 ml STK-MED ONCE .ROUTE ; Start 07/12/16 at 18:19; Stop at 18:20; Status DC Vecuronium [place] 6 mg 6 mg PRN Q4HRS PRN IV ANXIETY / AGITATION Last administered on 07/12/16 19:55; Start 07/12/16 at 19:00; Stop 07/15/16 at 07:58 ; Status DC Propofol (Diprivan) 100 ml @ 0 mls/hr CONT PRN IV SEE I/O RECORD Last administered on 07/14/16 13:42; Start 07/12/16 at 19:00; Stop 07/15/16 at 07:58 ; Status DC Insulin Aspart 10 units 10 units 1X ONCE SQ Last administered on 07/12/16 19: 41; Start 07/12/16 at 19:45; Stop 07/12/16 at 19:46; Status DC Vecuronium [place] 100 mg/ Dextrose 100 ml @ 0 mls/hr CONT PRN IV SEE I/O RECORD Last administered on 07/13/16 20:48; Start 07/12/16 at 21:00; Stop 07/14 at 09:31; Status DC Fentanyl Citrate (Fentanyl 600 Mcg/30 ml CHIEF DRAFTER) 30 ml @ 0 mls/hr CONT PRN IV PROTOCOL Last administered on 07/14/16 09:33; Start 07/12/16 at 22:00; Stop at 07:58; Status DC Chlorhexidine Gluconate (Peridex) 15 ml BID MM Last administered on 07/15/16 21:28; Start 07/13/16 at 09:00 Methylprednisolone Sodium Succinate (Solu-Medrol 125mg Vial) 125 mg BID IV Last administered on 07/14/16 21:02; Start 07/13/16 at 09:00; Stop 07/15/16 at 07:58; Status DC Rocuronium [place] (Zemuron) 50 mg STK-MED ONCE .ROUTE ; Start 07/12/16 at 15:00 ; Stop 07/13/16 at 08:54; Status DC Glycopyrrolate (Robinul) 1 mg STK-MED ONCE .ROUTE ; Start 07/12/16 at 15:00; Stop 07/13/16 at 08:54; Status DC Lidocaine HCl 30 ml STK-MED ONCE .ROUTE ; Start 07/12/16 at 18:00; Stop at 09:05; Status DC Midazolam HCl (Versed) 5 mg STK-MED ONCE .ROUTE ; Start 07/12/16 at 18:00; Stop 07/13/16 at 09:05; Status DC Propofol (Diprivan) 1,000 mg STK-MED ONCE IV ; Start 07/12/16 at 18:00; Stop at 09:05; Status DC Succinylcholine Chloride (Anectine) 200 mg STK-MED ONCE .ROUTE ; Start 07/12/16 at 18:00; Stop 07/13/16 at 09:05; Status DC Multi-Ingred Cream/Lotion/Oil/ Oint (Artificial Tears Eye Oint) 1 margie PRN Q1HR PRN OU DRY EYE Last administered on 07/13/16 15:45; Start 07/13/16 at 11:00 Ketamine HCl 500 mg STK-MED ONCE .ROUTE ; Start 07/12/16 at 18:30; Stop at 12:05; Status DC Insulin Aspart (Novolog) 10 units 1X STAT SQ Last administered on 07/13/16 12 :36; Start 07/13/16 at 12:17; Stop 07/13/16 at 12:20; Status DC Insulin Aspart (Novolog) 10 units 1X ONCE SQ Last administered on 07/13/16 14 :31; Start 07/13/16 at 14:30; Stop 07/13/16 at 14:31; Status DC Insulin Detemir (Levemir) 40 units QHS SQ Last administered on 07/13/16 20:50 ; Start 07/13/16 at 21:00; Stop 07/14/16 at 09:31; Status DC Benzocaine (Hurricaine One) 1 spray STK-MED ONCE .ROUTE ; Start 07/12/16 at 12: 00; Stop 07/13/16 at 16:00; Status DC Lidocaine HCl 5 margie 5 margie STK-MED ONCE TP ; Start 07/12/16 at 12:00; Stop at 16:00; Status DC Insulin Human Regular/Sodium Chloride (Novolin R Vial/ Iv Normal Saline 150ml) 151.5 ml @ 0 mls/hr CONT PRN IV SEE I/O RECORD Last administered on 07/14/16 10:01; Start 07/14/16 at 09:30; Stop 07/15/16 at 07:58; Status DC Info 1 each 1 each PRN DAILY PRN MC SEE COMMENTS Last administered on 08:26; Start 07/14/16 at 09:30 Magnesium Sulfate/ Dextrose 50 ml @ 25 mls/hr PRN DAILY PRN IV for Mag < 1.7 on am labs; Start 07/14/16 at 11:15; Stop 07/15/16 at 07:58; Status DC Sodium Chloride 500 ml @ 500 mls/hr QID PRN IV UO< 30cc/hr over previous 6hrs ; Start 07/14/16 at 11:15; Stop 07/14/16 at 11:26; Status DC Sodium Chloride 500 ml @ 500 mls/hr PRN QID PRN IV UO< 30cc/hr over previous 6hrs Last administered on 07/16/16 10:00; Start 07/14/16 at 11:26 Ceftriaxone Sodium 1 gm/ Sodium Chloride 50 ml @ 100 mls/hr Q24H IV Last administered on 07/16/16 12:00; Start 07/14/16 at 12:00; Stop 07/20/16 at 12:29 Sodium Chloride/ Magnesium Sulfate/ Calcium Gluconate/ Multivitamins/ Chromium/ Copper/ Manganese/Seleni/ Zn/Total Parenteral Nutrition/Amino Acids/Dextrose ( Sodium Chloride/ Infuvite Adult/ Multitrace-5 Conc/ Tpn - Tpn Fluid/ Trophamine / Dextrose 70%-Water Iv Soln) 1,512 ml @ 63 mls/hr TPN CONT IV Last administered on 07/14/16 22:29; Start 07/14/16 at 22:00; Stop 07/15/16 at 21:59 ; Status DC Hydralazine HCl (Apresoline) 10 mg PRN Q4HRS PRN IVP ELEVATED BP, SEE COMMENTS ; Start 07/14/16 at 22:30 Methylprednisolone Sodium Succinate (Solu-Medrol 125mg Vial) 125 mg DAILY IV Last administered on 07/15/16 08:55; Start 07/15/16 at 09:00; Stop 07/16/16 at 08:35; Status DC Insulin Aspart (Novolog) 0-9 UNITS TIDWMEALS SQ Last administered on 07/15/16 16:16; Start 07/15/16 at 08:00; Stop 07/16/16 at 07:16; Status DC Dextrose 12.5 gm PRN Q15MIN PRN IV SEE COMMENTS; Start 07/15/16 at 08:00 Insulin Detemir (Levemir) 20 units QHS SQ Last administered on 07/15/16 21:48 ; Start 07/15/16 at 21:00; Stop 07/16/16 at 07:16; Status DC Insulin Aspart (Novolog) 10 units TIDAC SQ ; Start 07/15/16 at 11:30; Stop 07/16 at 07:16; Status DC Sodium Polystyrene Sulfonate (Kayexalate) 30 gm 1X ONCE PO ; Start 07/15/16 at 08:00; Stop 07/15/16 at 08:08; Status DC Hydrochlorothiazide (Microzide) 12.5 mg DAILY PO ; Start 07/15/16 at 09:00; Stop 07/16/16 at 07:39; Status DC Isosorbide Mononitrate (Imdur) 120 mg DAILY PO ; Start 07/15/16 at 09:00; Stop 07/15/16 at 09:00; Status DC Diltiazem HCl (Cardizem 24hr Cd) 240 mg DAILY PO ; Start 07/15/16 at 09:00; Stop 07/16/16 at 07:39; Status DC Guaifenesin (Mucinex) 600 mg BID PO ; Start 07/15/16 at 09:00; Stop 07/16/16 at 07:39; Status DC Mupirocin (Bactroban) 1 margie BID NS Last administered on 07/16/16t 20:49; Start 07/15/16 at 09:00 Isosorbide Mononitrate (Imdur) 120 mg DAILY PO ; Start 07/15/16 at 09:00; Stop 07/16/16 at 07:39; Status DC Sodium Bicarbonate 50 meq 1X ONCE IV Last administered on 07/15/16t 15:22; Start 07/15/16 at 10:45; Stop 07/15/16 at 10:46; Status DC Sodium Bicarbonate 50 meq 50 meq STK-MED ONCE .ROUTE ; Start 07/15/16 at 10:34; Stop 07/15/16 at 10:35; Status DC Dopamine HCl/ Dextrose 250 ml @ As Directed STK-MED ONCE IV ; Start 07/15/16 at 10:37; Stop 07/15/16 at 10:38; Status DC Midazolam HCl (Versed) 5 mg STK-MED ONCE .ROUTE ; Start 07/15/16 at 10:41; Stop 07/15/16 at 10:42; Status DC Iohexol 100 ml 100 ml STK-MED ONCE .ROUTE ; Start 07/15/16 at 10:45; Stop at 10:46; Status DC Heparin Sodium/ Sodium Chloride 1,500 ml @ As Directed STK-MED ONCE .ROUTE ; Start 07/15/16 at 10:45; Stop 07/15/16 at 10:46; Status DC Lidocaine HCl 20 ml 20 ml STK-MED ONCE .ROUTE ; Start 07/15/16 at 10:45; Stop at 10:46; Status DC Dopamine HCl/ Dextrose 250 ml @ 16.255 mls/ hr CONT PRN IV SEE I/O RECORD Last administered on 07/16/16 23:10; Start 07/15/16 at 11:00 Sodium Chloride 1,000 ml @ 1,000 mls/hr 1X ONCE IV Last administered on 11:00; Start 07/15/16 at 11:00; Stop 07/15/16 at 11:59; Status DC Norepinephrine Bitartrate/Sodium Chloride (Levophed Vial/ Iv Sodium Chloride 0.9 % 250ml) 258 ml @ 0 mls/hr CONT PRN IV SEE I/O RECORD Last administered on 07/17 00:51; Start 07/15/16 at 11:00 Midazolam HCl (Versed) 5 mg STK-MED ONCE .ROUTE ; Start 07/15/16 at 10:54; Stop 07/15/16 at 10:55; Status DC Fentanyl Citrate (Fentanyl 2ml Vial) 100 mcg STK-MED ONCE .ROUTE ; Start at 11:02; Stop 07/15/16 at 11:03; Status DC Vecuronium [place] 10 mg 10 mg STK-MED ONCE IV ; Start 07/15/16 at 11:03; Stop 07/15/16 at 11:04; Status DC Midazolam HCl (Versed 100mg/ 100ml Premix) 100 ml @ As Directed STK-MED ONCE IV ; Start 07/15/16 at 11:03; Stop 07/15/16 at 11:04; Status DC Iohexol (Omnipaque 300 Mg/ml) 112 ml 1X ONCE IART Last administered on 11:56; Start 07/15/16 at 12:00; Stop 07/15/16 at 12:01; Status DC Lidocaine HCl 10 ml 1X ONCE IJ Last administered on 07/15/16 11:57; Start at 12:00; Stop 07/15/16 at 12:01; Status DC Heparin Sodium/ Sodium Chloride 1000 unit 1,000 unit 1X ONCE IART ; Start 07/15 at 12:00; Stop 07/15/16 at 12:01; Status DC Sodium Chloride/ Magnesium Sulfate/ Calcium Gluconate/ Multivitamins/ Chromium/ Copper/ Manganese/Seleni/ Zn/Total Parenteral Nutrition/Amino Acids/Dextrose ( Sodium Chloride/ Infuvite Adult/ Multitrace-5 Conc/ Tpn - Tpn Fluid/ Trophamine / Dextrose 70%-Water Iv Soln) 1,512 ml @ 63 mls/hr TPN CONT IV Last administered on 07/15/16 21:27; Start 07/15/16 at 22:00; Stop 07/16/16 at 21:59 ; Status DC Iohexol (Omnipaque 300 Mg/ml) 75 ml 1X ONCE IV Last administered on 07/15/16 13:43; Start 07/15/16 at 13:15; Stop 07/15/16 at 13:16; Status DC Info (Do NOT chart on this entry -- for MONITORING) 1 each PRN DAILY PRN MC SEE COMMENTS; Start 07/15/16 at 13:15; Stop 07/17/16 at 13:14 Heparin Sodium (Porcine) 7000 unit 7,000 unit 1X ONCE IV Last administered on 07/15/16 15:27; Start 07/15/16 at 14:45; Stop 07/15/16 at 14:46; Status DC Heparin Sodium/ Dextrose 500 ml @ 0 mls/hr CONT PRN IV SEE I/O RECORD Last administered on 07/16/16 17:43; Start 07/15/16 at 14:30 Heparin Sodium (Porcine) 2,600 unit PRN Q6HRS PRN IV FOR UFH LEVEL LESS THAN 0.2; Start 07/15/16 at 14:30 Heparin Sodium (Porcine) 1,300 unit PRN Q6HRS PRN IV FOR UFH LEVEL 0.2 - 0.29; Start 07/15/16 at 14:30 Warfarin Sodium (Coumadin Per Pharmacy) 1 each PRN DAILY PRN MC PER PROTOCOL; Start 07/15/16 at 14:30; Stop 07/15/16 at 14:30; Status DC Sodium Bicarbonate 50 meq 50 meq 1X ONCE IV Last administered on 07/15/16 16: 30; Start 07/15/16 at 16:30; Stop 07/15/16 at 16:34; Status DC Alteplase, Recombinant (Activase) 100 ml @ 50 mls/hr 1X ONCE IV Last administered on 07/15/16 17:30; Start 07/15/16 at 17:30; Stop 07/15/16 at 19:29 ; Status DC Fentanyl Citrate (Fentanyl 2ml Vial) 25 mcg PRN Q1HR PRN IV COMM; Start at 22:30; Stop 07/16/16 at 07:17; Status DC Fentanyl Citrate (Fentanyl 2ml Vial) 50 mcg PRN Q1HR PRN IV COMM Last administered on 07/16/16 05:30; Start 07/15/16 at 22:30; Stop 07/16/16 at 07:17 ; Status DC Scopolamine (Transderm-Scop) 1 patch Q3DAYS TD ; Start 07/18/16 at 09:00 Scopolamine 1 patch 1 patch ONCE ONCE TD ; Start 07/15/16 at 23:30; Stop at 23:31; Status DC Sodium Chloride 1,000 ml @ 1,000 mls/hr 1X ONCE IV Last administered on 02:38; Start 07/16/16 at 01:00; Stop 07/16/16 at 01:59; Status DC Midazolam HCl 100 ml @ As Directed STK-MED ONCE IV ; Start 07/16/16 at 01:00; Stop 07/16/16 at 01:01; Status DC Midazolam HCl 100 ml @ 0 mls/hr CONT PRN IV SEE I/O RECORD Last administered on 07/17/16 08:12; Start 07/16/16 at 01:15 Vasopressin 40 unit/Dextrose 102 ml @ 6 mls/hr CONT PRN IV SEE I/O RECORD Last administered on 07/16/16 17:44; Start 07/16/16 at 05:00 Insulin Human Regular 150 unit/ Sodium Chloride 151.5 ml @ 0 mls/hr CONT PRN IV SEE I/O RECORD Last administered on 07/17/16 02:26; Start 07/16/16 at 05:00 ; Stop 07/17/16 at 10:10; Status DC Fentanyl Citrate (Fentanyl 600 Mcg/30 ml CHIEF DRAFTER) 30 ml @ 0 mls/hr CONT PRN IV PROTOCOL Last administered on 07/17/16 05:23; Start 07/16/16 at 07:15 Vecuronium [place] (Norcuron Bolus) 10 mg STK-MED ONCE IV ; Start 07/15/16 at 11 :00; Stop 07/16/16 at 08:06; Status DC Fentanyl Citrate (Fentanyl 2ml Vial) 100 mcg STK-MED ONCE .ROUTE ; Start at 11:00; Stop 07/16/16 at 08:06; Status DC Midazolam HCl (Versed) 10 mg STK-MED ONCE .ROUTE ; Start 07/15/16 at 11:00; Stop 07/16/16 at 08:06; Status DC Dopamine HCl/ Dextrose 400 mg STK-MED ONCE IV ; Start 07/15/16 at 11:00; Stop at 08:06; Status DC Sodium Bicarbonate 50 meq STK-MED ONCE .ROUTE ; Start 07/15/16 at 11:00; Stop at 08:06; Status DC Hydrocortisone Sodium Succinate (Solu-Cortef) 100 mg Q8HRS IV Last administered on 07/17/16 07:14; Start 07/16/16 at 09:00 Sodium Polystyrene Sulfonate 30 gm 30 gm 1X ONCE PO Last administered on 08:41; Start 07/16/16 at 08:30; Stop 07/16/16 at 08:34; Status DC Albumin Human (Plasmanate) 500 ml @ 125 mls/hr PRN Q6HRS PRN IV for CVP < 10; MAP < 65 Last administered on 07/17/16 08:12; Start 07/16/16 at 08:30 Sodium Bicarbonate 50 meq 1X ONCE IV Last administered on 07/16/16 08:41; Start 07/16/16 at 08:45; Stop 07/16/16 at 08:46; Status DC Info (Anti-Coagulation Monitoring By Pharmacy) 1 each PRN DAILY PRN MC SEE COMMENTS; Start 07/16/16 at 08:45 Ipratropium [place] (Atrovent) 0.5 mg RTQID NEB Last administered on 07/17/16 07:23; Start 07/16/16 at 12:00 Lidocaine/Sodium Bicarbonate (Buffered Lidocaine 1%) 3 ml 1X ONCE IJ Last administered on 07/16/16 10:43; Start 07/16/16 at 09:15; Stop 07/16/16 at 09:16 ; Status DC Heparin Sodium/ Sodium Chloride 60 unit 1X ONCE IV Last administered on 10:44; Start 07/16/16 at 09:15; Stop 07/16/16 at 09:16; Status DC Heparin Sodium (Porcine) 2500 unit 2,500 unit 1X ONCE INT CAT Last administered on 07/16/16 10:44; Start 07/16/16 at 09:15; Stop 07/16/16 at 09:16 ; Status DC Sodium Chloride 40 meq/Sodium Acetate 40 meq/ Magnesium Sulfate 8 meq/Calcium Gluconate 5 meq/ Multivitamins 10 ml/Chromium/ Copper/Manganese/ Seleni/Zn 1 ml / Insulin Human Regular 10 unit/ Total Parenteral Nutrition/Amino Acids/Dextrose / Fat Emulsion Intravenous 1,512 ml @ 63 mls/hr TPN CONT IV Last administered on 07/16/16 21:53; Start 07/16/16 at 22:00; Stop 07/17/16 at 21:59 Pantoprazole Sodium 80 mg/ Sodium Chloride 100 ml @ 10 mls/hr Q10H IV Last administered on 07/17/16 08:16; Start 07/17/16 at 06:45 Sodium Acetate/ Potassium Acetate/ Magnesium Sulfate/ Calcium Gluconate/ Multivitamins/ Chromium/Copper/ Manganese/Seleni/ Zn/Insulin Human Regular/ Total Parenteral Nutrition/Amino Acids/Dextrose/ Fat Emulsion Intravenous ( Calcium Gluconate/ Infuvite Adult/ Multitrace-5 Conc/ Novolin R Vi... 1,512 ml @ 63 mls/hr TPN CONT IV ; Start 07/17/16 at 22:00; Stop 07/18/16 at 21:59 Insulin Detemir (Levemir) 25 units BID SQ ; Start 07/17/16 at 10:30 Insulin Aspart (Novolog) 0-9 UNITS TIDWMEALS SQ ; Start 07/17/16 at 12:00 Dextrose 12.5 gm PRN Q15MIN PRN IV SEE COMMENTS; Start 07/17/16 at 10:15; Status UNV Active Scripts Active Levemir Flextouch (Insulin Detemir) 100 Unit/1 Ml Insuln.pen 20 Units SQ QHS 30 Days Novolog Flexpen (Insulin Aspart) 100 Unit/1 Ml Insuln.pen 10 Units SQ TIDAC 30 Days Reported Advair 100-50 Diskus (Fluticasone/Salmeterol) 1 Each Disk.w.dev 1 Puff IH BID Spiriva Respimat (Tiotropium [place]) 4 Gm Mist.inhal 2.5 Gm IH DAILY Symbicort 160-4.5 Mcg Inhaler (Budesonide/Formoterol Fumarate) 10.2 Gm Hfa.aer.ad 2 Puff IH BID Atorvastatin Calcium 20 Mg Tablet 20 Mg PO HS Lisinopril-Hctz 10-12.5 Mg Tab (Lisinopril/Hydrochlorothiazide) 1 Each Tablet 1 Tab PO DAILY Isosorbide Mononitrate Er (Isosorbide Mononitrate) 120 Mg Tab.er.24h 120 Mg PO DAILY Novolin N (Nph, Human Insulin Isophane) 100 Unit/1 Ml Vial 0 SQ Promethazine-Codeine Syrup (Promethazine Hcl/Codeine) 118 Ml Syrup 5 Ml PO Q4- 6HRS Diltiazem 24HR Cd (Diltiazem Hcl) 240 Mg Cap.er.24h 240 Mg PO DAILY NITROGLYCERIN SubLingual (Nitroglycerin) 0.4 Mg Tab.subl 0.4 Mg SL PRN Q5MIN PRN Atorvastatin Calcium 40 Mg Tablet 40 Mg PO HS Vitals/I & O Vital Sign - Last 24 Hours 07/16/16 07/16/16 07/16/16 07/16/16 11:00 11:27 12:00 12:00 Pulse 133 Resp 25 B/P 136/59 131/60 Pulse Ox 97 97 O2 Delivery Ventilator Ventilator Mechanical Ventilator 07/16/16 07/16/16 07/16/16 07/16/16 12:00 13:00 14:00 15:00 Temp 98.8 98.8 Pulse 134 132 128 128 Resp 25 25 25 25 B/P 127/60 151/64 176/69 172/69 Pulse Ox 98 97 100 100 O2 Delivery Ventilator Ventilator Ventilator Ventilator 07/16/16 07/16/16 07/16/16 07/16/16 15:05 16:00 16:00 16:00 Temp 98.2 98.2 Pulse 129 Resp 25 B/P 150/59 154/60 Pulse Ox 100 99 O2 Delivery Ventilator Mechanical Ventilator Ventilator 07/16/16 07/16/16 07/16/16 07/16/16 17:00 17:23 17:30 18:00 Pulse 123 Resp 25 B/P 120/59 Pulse Ox 100 100 100 100 O2 Delivery Ventilator Ventilator O2 Flow Rate 3.0 3.0 07/16/16 07/16/16 07/16/16 07/16/16 18:00 19:00 19:44 20:00 Pulse 118 118 Resp 25 25 B/P 137/59 132/60 Pulse Ox 100 100 100 O2 Delivery Ventilator Ventilator Ventilator Mechanical Ventilator 07/16/16 07/16/16 07/16/16 07/16/16 20:00 20:00 21:00 22:00 Temp 98.5 98.5 Pulse 118 116 114 Resp 25 25 25 B/P 100/48 100/48 134/58 130/54 Pulse Ox 100 100 100 O2 Delivery Ventilator Ventilator Ventilator 07/16/16 07/16/16 07/17/16 07/17/16 23:00 23:15 00:00 00:00 Pulse 117 117 Resp 25 25 B/P 103/48 110/51 Pulse Ox 100 O2 Delivery Ventilator Ventilator Mechanical Ventilator Ventilator 07/17/16 07/17/16 07/17/16 07/17/16 00:00 00:00 01:00 01:50 Temp 98.7 98.7 Pulse 116 Resp 25 B/P 119/53 Pulse Ox 99 100 O2 Delivery Ventilator Ventilator 07/17/16 07/17/16 07/17/16 07/17/16 02:00 03:00 03:53 04:00 Temp 98.7 98.7 Pulse 115 115 115 Resp 25 25 25 B/P 128/55 134/55 124/54 Pulse Ox 100 100 100 100 O2 Delivery Ventilator Ventilator Ventilator Ventilator 07/17/16 07/17/16 07/17/16 07/17/16 04:00 04:00 05:00 05:23 Pulse 113 Resp 25 B/P 137/56 Pulse Ox 100 100 O2 Delivery Mechanical Ventilator Ventilator Ventilator 07/17/16 07/17/16 07/17/16 06:00 07:23 08:46 Pulse 112 Resp 25 B/P 140/61 Pulse Ox 100 100 100 O2 Delivery Ventilator Ventilator Ventilator Intake and Output 07/16/16 07/16/16 07/17/16 15:00 23:00 07:00 Intake Total 4915 ml 1565.8 ml Output Total 165 ml 350 ml 300 ml Balance -165 ml 4565 ml 1265.8 ml DAJA LUCIANO MD Jul 17, 2016 10:45
[2016-07-17] MEDS ORDERED: IOHEXOL 300 MG/ML 100ML VIAL. IART ONE (11:15)
--- NOTE | 2016-07-17 11:20 | PDOC4 ---
Operative Note Operative Note Procedure: IVC Filter Indication: severe anema with concern for bleeding with PE/DVT and prior PEA/ Code blue Medical Pathology Teacher: Caro Findings: Patent IVC. no venous abnormalities Complications: none Blood loss <5cc Contrast 40cc SCHUYLER OWENS MD Jul 17, 2016 11:20
--- NOTE | 2016-07-17 11:27 | RAD ---
Procedure: 1. Inferior venacavogram 2. Inferior vena cava filter placement FLUOROSCOPY TIME 0.7 minutes DAP 8100 mGycm2 The procedure, risks, and complications were explained to the the patient's since the patient is currently ventilated and they understood and wished to proceed. Consent form signed. The left groin was prepped and draped using maximal sterile technique and 1% Xylocaine was used for local anesthesia. All elements of maximum barrier sterile technique were utilized. A singlewall puncture was made into the left common femoral vein under ultrasound guidance, ultrasound imaging showed that the left femoral vein was patent. An image was saved and sent to PACS. Next the IVC filter delivery sheath was placed near the confluence of the iliac veins. IVC gram: Digital subtraction venogram was then performed through the IVC filter delivery sheath. Renal vein inflow identified. The infra-renal IVC measures less than 3 cm. No venous abnormalities are identified IVC filter placement: Next, under fluoroscopic guidance, a Bard eclipse inferior vena cava filter was deployed in an infrarenal location. The filter is well seated. Repeat venogram is unremarkable in appearance. Sedation: None Complications: None Contrast: 40 cc?s The patient tolerated the procedure well. The groin catheter was removed, pressure placed, and hemostasis obtained. The patient returned to the ICU in a stable condition. Conclusion: 1. Normal IVC gram. 2. Status post infrarenal ultrasound and fluoroscopic Bard eclipse IVC filter placement. This is an optional IVC filter in patient should be assessed in 3-6 months for filter removal.
[2016-07-17] MEDS ORDERED: CONTRAST GIVEN MC PRN (11:30)
[2016-07-17] MEDS: MUPIROCIN 2 % NASAL OINTMENT 22GM TUBE. NS SCH ×2 (12:00→20:50)
[2016-07-17] MEDS: CHLORHEXIDINE 0.12% 15 ML MOUTHWASH. MM SCH ×2 (12:00→20:49)
[2016-07-17] MEDS: CEFTRIAXONE SODIUM 1 GM in IV NORMAL SALINE 50ML 50 ML IV SCH (12:01)
[2016-07-17] MEDS: INSULIN DETEMIR 300 UNITS/3 ML INSULN.PEN. SQ SCH ×2 (12:11→20:51)
[2016-07-17] MEDS: INSULIN ASPART 300 UNITS/3 ML INSULN.PEN SQ SCH ×2 (12:18→18:57)
[2016-07-17] MEDS: VASOPRESSIN 40 UNIT in IV DEXTROSE 5% 100 ML IV PRN (13:33)
[2016-07-17] MEDS: hydrALAZINE 20 MG/ML VIAL. IVP PRN (16:12)
[2016-07-17] MEDS ORDERED: PROPOFOL 100 ML IV ONE (16:36)
[2016-07-17] MEDS ORDERED: PROPOFOL 10 MG/ML (100ML) VIAL. IV ONE (16:36)
[2016-07-17] MEDS ORDERED: FUROSEMIDE 40 MG/4 ML VIAL IVP ONE (16:45)
[2016-07-17] MEDS: HEPARIN 25,000UTS/500ML PREMIX 500 ML IV PRN (18:41)
[2016-07-17] MEDS: ATORVASTATIN CALCIUM 40 MG TABLET. PO SCH (20:50)
[2016-07-17] MEDS ORDERED: TOTAL PARENTERAL NUTRITION IV SCH ×10 (22:00)
[2016-07-17] MEDS ORDERED: AMINO ACIDS IV SCH ×10 (22:00)
[2016-07-17] MEDS ORDERED: DEXTROSE 70% IV SCH ×10 (22:00)
[2016-07-17] MEDS ORDERED: [UNRECOGNIZED DRUG - OTHER] IV SCH ×10 (22:00)
[2016-07-18] VITALS (25 sets, daily range): BP systolic 93–174; BP diastolic 45–72
[2016-07-18] MEDS: FENTANYL STANDARD PCA 30 ML IV PRN ×5 (00:43→19:10)
[2016-07-18 01:28] LABS: HEMATOCRIT 21.2 % (39.0-53.0); RED BLOOD COUNT 2.46 x10^6/uL (4.30-5.70); RED CELL DISTRIBUTION WIDTH 14.6 % (11.5-14.5); WHITE BLOOD COUNT 10.4 x10^3/uL (4.0-11.0)
[2016-07-18 01:33] LABS: HEMOGLOBIN 6.9 g/dL (13.0-17.5)
[2016-07-18 06:02] LABS: BASO % 0 % (0-3); EOS % 0 % (0-3); LYMPH # 0.9 x10^3/uL (1.0-4.8); LYMPH % 9 % (24-48); MEAN CORPUSCULAR HEMOGLOBIN 29 pg (25-35); MEAN CORPUSCULAR HGB CONC 33 g/dL (31-37); MEAN CORPUSCULAR VOLUME 87 fL (79-100); MONO % 8 % (0-9); NEUT % 82 % (31-73); PLATELET COUNT 146 x10^3/uL (140-400); RED BLOOD COUNT 2.26 x10^6/uL (4.30-5.70); RED CELL DISTRIBUTION WIDTH 14.5 % (11.5-14.5); WHITE BLOOD COUNT 9.6 x10^3/uL (4.0-11.0)
[2016-07-18] MEDS: HYDROCORTISONE SOD SUCC/PF 100 MG/2 ML VIAL. IV SCH ×3 (06:10→22:07)
[2016-07-18] MEDS: PANTOPRAZOLE SODIUM IV 80 MG in IV NORMAL SALINE 100ML 100 ML IV SCH ×2 (06:10→19:41)
[2016-07-18 06:11] LABS: HEMATOCRIT 19.6 % (39.0-53.0); HEMOGLOBIN 6.4 g/dL (13.0-17.5)
[2016-07-18 06:16] LABS: CALCIUM 7.6 mg/dL (8.5-10.1); GFR 39.8; PHOSPHORUS 4.4 mg/dL (2.6-4.7); POTASSIUM 3.3 mmol/L (3.5-5.1)
[2016-07-18] MEDS: IPRATROPIUM BROMIDE 0.5 MG/2.5 ML NEBU. NEB SCH ×4 (07:12→19:41)
[2016-07-18 07:54] LABS: HCO3 ABG 23 mmol/L (21-28); PO2 ABG 115 mmHg (65-108); SAT O2 ABG 97 % (92-99)
[2016-07-18 07:56] LABS: PCO2 ABG 36 mmHg (35-46); PH ABG 7.42 (7.35-7.45)
[2016-07-18] MEDS ORDERED: INSULIN ASPART 300 UNITS/3 ML INSULN.PEN SQ ONE (08:15)
[2016-07-18] MEDS: TPN PER PHARMACY MC PRN (08:27)
[2016-07-18] MEDS ORDERED: INSULIN DETEMIR 300 UNITS/3 ML INSULN.PEN. SQ SCH (09:00)
[2016-07-18] MEDS ORDERED: ATROPINE 0.5 MG/5 ML DISP.SYRIN. ONE ×2 (09:43)
--- NOTE | 2016-07-18 09:52 | RAD ---
Indication respiratory failure. A single view of the chest was obtained and is compared to a study one day earlier. There has not been a significant change. Right pleural effusion persists. Right IJ catheter and dialysis catheter are noted. Heart and pulmonary vessels are similar. IMPRESSION: No significant change. Right pleural effusion persists.
[2016-07-18] MEDS: MUPIROCIN 2 % NASAL OINTMENT 22GM TUBE. NS SCH ×2 (09:55→22:08)
[2016-07-18] MEDS: CHLORHEXIDINE 0.12% 15 ML MOUTHWASH. MM SCH ×2 (09:55→22:07)
[2016-07-18] MEDS: SCOPOLAMINE 1.5MG PATCH. TD SCH (09:55)
--- NOTE | 2016-07-18 09:57 | PDOC ---
PULMONARY PROGRESS NOTES Subjective intubated, on vent sedated, small ett secretion. off pressors, getting 1 unit prbc , total 7 units Vitals Vital Signs Date Time Temp Pulse Resp B/P Pulse Ox O2 Delivery O2 Flow Rate FiO2 07/18/16 08:47 100 Ventilator 07/18/16 08:18 98.0 47 25 174/54 98.0 Comments ros discussed w rn, as mentioned as above other sys otherwise neg General: Lethargic HEENT: Other (nc at orally intubated, nose clear, ) Lungs: Crackles, Other (decrease bs) Cardiovascular: S1, S2 Abdomen: Soft, Non-tender, Other (no mass) Extremities: Other (trace edema) Skin: Warm Labs Laboratory Tests Test 07/16/16 10:55 07/16/16 12:00 07/16/16 12:15 07/16/16 13:04 Glucose (Fingerstick) 265mg/dL (70-99) 220mg/dL (70-99) 192mg/dL (70-99) Heparin Anti-Xa Act, Unfractionated 0.64IU/mL (0.30-0.70) Potassium Level 4.4mmol/L (3.5-5.1) Test 07/16/16 14:08 07/16/16 15:19 07/16/16 16:25 07/16/16 17:33 Glucose (Fingerstick) 159mg/dL (70-99) 149mg/dL (70-99) 123mg/dL (70-99) 123mg/dL (70-99) Test 07/16/16 18:00 07/16/16 18:37 07/16/16 19:52 07/16/16 20:56 Heparin Anti-Xa Act, Unfractionated 0.41IU/mL (0.30-0.70) Glucose (Fingerstick) 116mg/dL (70-99) 116mg/dL (70-99) 120mg/dL (70-99) Test 07/16/16 22:00 07/16/16 23:04 07/17/16 00:13 07/17/16 01:17 Glucose (Fingerstick) 161mg/dL (70-99) 156mg/dL (70-99) 144mg/dL (70-99) 153mg/dL (70-99) Test 07/17/16 02:22 07/17/16 03:24 07/17/16 04:28 07/17/16 05:30 Glucose (Fingerstick) 162mg/dL (70-99) 152mg/dL (70-99) 139mg/dL (70-99) White Blood Count 12.4x10^3/uL (4.0-11.0) Red Blood Count 1.94x10^6/uL (4.30-5.70) Hemoglobin 5.3g/dL (13.0-17.5) Hematocrit 16.2% (39.0-53.0) Mean Corpuscular Volume 83fL (79-100) Mean Corpuscular Hemoglobin 27pg (25-35) Mean Corpuscular Hemoglobin Concent 33g/dL (31-37) Red Cell Distribution Width 14.5% (11.5-14.5) Platelet Count 257x10^3/uL (140-400) Neutrophils (%) (Auto) 82% (31-73) Lymphocytes (%) (Auto) 10% (24-48) Monocytes (%) (Auto) 8% (0-9) Eosinophils (%) (Auto) 0% (0-3) Basophils (%) (Auto) 0% (0-3) Neutrophils # (Auto) 10.1x10^3uL (1.8-7.7) Lymphocytes # (Auto) 1.2x10^3/uL (1.0-4.8) Monocytes # (Auto) 1.0x10^3/uL (0.0-1.1) Eosinophils # (Auto) 0.0x10^3/uL (0.0-0.7) Basophils # (Auto) 0.0x10^3/uL (0.0-0.2) Heparin Anti-Xa Act, Unfractionated 0.35IU/mL (0.30-0.70) Sodium Level 146mmol/L (136-145) Potassium Level 4.1mmol/L (3.5-5.1) Chloride Level 113mmol/L (98-107) Carbon Dioxide Level 24mmol/L (21-32) Anion Gap 9 (6-14) Blood Urea Nitrogen 76mg/dL (8-26) Creatinine 2.2mg/dL (0.7-1.3) Estimated GFR (Cockcroft-Gault) 35.7 BUN/Creatinine Ratio 35 (6-20) Glucose Level 146mg/dL (70-99) Calcium Level 7.4mg/dL (8.5-10.1) Phosphorus Level 5.8mg/dL (2.6-4.7) Magnesium Level 2.5mg/dL (1.8-2.4) Total Bilirubin 0.2mg/dL (0.2-1.0) Aspartate Amino Transf (AST/SGOT) 1105U/L (15-37) Alanine Aminotransferase (ALT/SGPT) 786U/L (16-63) Alkaline Phosphatase 135U/L (46-116) Total Protein 4.9g/dL (6.4-8.2) Albumin 1.8g/dL (3.4-5.0) Albumin/Globulin Ratio 0.6 (1.0-1.7) Test 07/17/16 05:33 07/17/16 06:46 07/17/16 07:42 07/17/16 08:00 Glucose (Fingerstick) 150mg/dL (70-99) 128mg/dL (70-99) 144mg/dL (70-99) O2 Saturation 97% (92-99) Arterial Blood pH 7.35 (7.35-7.45) Arterial Blood pCO2 at Patient Temp 38mmHg (35-46) Arterial Blood pO2 at Patient Temp 114mmHg (65-108) Arterial Blood HCO3 21mmol/L (21-28) Arterial Blood Base Excess -4mmol/L (-3-3) FiO2 40 Test 07/17/16 09:02 07/17/16 12:15 07/17/16 18:52 07/17/16 20:47 Glucose (Fingerstick) 139mg/dL (70-99) 164mg/dL (70-99) 249mg/dL (70-99) 285mg/dL (70-99) Test 07/18/16 01:00 07/18/16 05:40 07/18/16 05:45 07/18/16 07:43 White Blood Count 10.4x10^3/uL (4.0-11.0) 9.6x10^3/uL (4.0-11.0) Red Blood Count 2.46x10^6/uL (4.30-5.70) 2.26x10^6/uL (4.30-5.70) Hemoglobin 6.9g/dL (13.0-17.5) 6.4g/dL (13.0-17.5) Hematocrit 21.2% (39.0-53.0) 19.6% (39.0-53.0) Mean Corpuscular Volume 86fL (79-100) 87fL (79-100) Mean Corpuscular Hemoglobin 28pg (25-35) 29pg (25-35) Mean Corpuscular Hemoglobin Concent 33g/dL (31-37) 33g/dL (31-37) Red Cell Distribution Width 14.6% (11.5-14.5) 14.5% (11.5-14.5) Platelet Count 152x10^3/uL (140-400) 146x10^3/uL (140-400) Heparin Anti-Xa Act, Unfractionated 0.22IU/mL (0.30-0.70) Sodium Level 142mmol/L (136-145) Potassium Level 3.3mmol/L (3.5-5.1) Chloride Level 109mmol/L (98-107) Carbon Dioxide Level 21mmol/L (21-32) Anion Gap 12 (6-14) Blood Urea Nitrogen 80mg/dL (8-26) Creatinine 2.0mg/dL (0.7-1.3) Estimated GFR (Cockcroft-Gault) 39.8 Glucose Level 447mg/dL (70-99) Calcium Level 7.6mg/dL (8.5-10.1) Phosphorus Level 4.4mg/dL (2.6-4.7) Magnesium Level 2.4mg/dL (1.8-2.4) Albumin 2.0g/dL (3.4-5.0) Neutrophils (%) (Auto) 82% (31-73) Lymphocytes (%) (Auto) 9% (24-48) Monocytes (%) (Auto) 8% (0-9) Eosinophils (%) (Auto) 0% (0-3) Basophils (%) (Auto) 0% (0-3) Neutrophils # (Auto) 7.9x10^3uL (1.8-7.7) Lymphocytes # (Auto) 0.9x10^3/uL (1.0-4.8) Monocytes # (Auto) 0.8x10^3/uL (0.0-1.1) Eosinophils # (Auto) 0.0x10^3/uL (0.0-0.7) Basophils # (Auto) 0.0x10^3/uL (0.0-0.2) O2 Saturation 97% (92-99) Arterial Blood pH 7.42 (7.35-7.45) Arterial Blood pCO2 at Patient Temp 36mmHg (35-46) Arterial Blood pO2 at Patient Temp 115mmHg (65-108) Arterial Blood HCO3 23mmol/L (21-28) Arterial Blood Base Excess -2mmol/L (-3-3) FiO2 40.0 Test 07/18/16 07:52 Glucose (Fingerstick) 438mg/dL (70-99) Laboratory Tests Test 07/17/16 12:15 07/17/16 18:52 07/17/16 20:47 07/18/16 01:00 Glucose (Fingerstick) 164mg/dL (70-99) 249mg/dL (70-99) 285mg/dL (70-99) White Blood Count 10.4x10^3/uL (4.0-11.0) Red Blood Count 2.46x10^6/uL (4.30-5.70) Hemoglobin 6.9g/dL (13.0-17.5) Hematocrit 21.2% (39.0-53.0) Mean Corpuscular Volume 86fL (79-100) Mean Corpuscular Hemoglobin 28pg (25-35) Mean Corpuscular Hemoglobin Concent 33g/dL (31-37) Red Cell Distribution Width 14.6% (11.5-14.5) Platelet Count 152x10^3/uL (140-400) Test 07/18/16 05:40 07/18/16 05:45 07/18/16 07:43 07/18/16 07:52 Heparin Anti-Xa Act, Unfractionated 0.22IU/mL (0.30-0.70) Sodium Level 142mmol/L (136-145) Potassium Level 3.3mmol/L (3.5-5.1) Chloride Level 109mmol/L (98-107) Carbon Dioxide Level 21mmol/L (21-32) Anion Gap 12 (6-14) Blood Urea Nitrogen 80mg/dL (8-26) Creatinine 2.0mg/dL (0.7-1.3) Estimated GFR (Cockcroft-Gault) 39.8 Glucose Level 447mg/dL (70-99) Calcium Level 7.6mg/dL (8.5-10.1) Phosphorus Level 4.4mg/dL (2.6-4.7) Magnesium Level 2.4mg/dL (1.8-2.4) Albumin 2.0g/dL (3.4-5.0) White Blood Count 9.6x10^3/uL (4.0-11.0) Red Blood Count 2.26x10^6/uL (4.30-5.70) Hemoglobin 6.4g/dL (13.0-17.5) Hematocrit 19.6% (39.0-53.0) Mean Corpuscular Volume 87fL (79-100) Mean Corpuscular Hemoglobin 29pg (25-35) Mean Corpuscular Hemoglobin Concent 33g/dL (31-37) Red Cell Distribution Width 14.5% (11.5-14.5) Platelet Count 146x10^3/uL (140-400) Neutrophils (%) (Auto) 82% (31-73) Lymphocytes (%) (Auto) 9% (24-48) Monocytes (%) (Auto) 8% (0-9) Eosinophils (%) (Auto) 0% (0-3) Basophils (%) (Auto) 0% (0-3) Neutrophils # (Auto) 7.9x10^3uL (1.8-7.7) Lymphocytes # (Auto) 0.9x10^3/uL (1.0-4.8) Monocytes # (Auto) 0.8x10^3/uL (0.0-1.1) Eosinophils # (Auto) 0.0x10^3/uL (0.0-0.7) Basophils # (Auto) 0.0x10^3/uL (0.0-0.2) O2 Saturation 97% (92-99) Arterial Blood pH 7.42 (7.35-7.45) Arterial Blood pCO2 at Patient Temp 36mmHg (35-46) Arterial Blood pO2 at Patient Temp 115mmHg (65-108) Arterial Blood HCO3 23mmol/L (21-28) Arterial Blood Base Excess -2mmol/L (-3-3) FiO2 40.0 Glucose (Fingerstick) 438mg/dL (70-99) Medications Active Scripts Medications Dose Route/Sig Days Date Category Advair 100-50 Diskus (Fluticasone/Salmeterol) 1 Each Disk.w.dev 1 Puff IH BID 06/21/16 Reported Spiriva Respimat (Tiotropium [place]) 4 Gm Mist.inhal 2.5 Gm IH DAILY 06/21/16 Reported Symbicort 160-4.5 Mcg Inhaler (Budesonide/Formoterol Fumarate) 10.2 Gm Hfa.aer.ad 2 Puff IH BID 06/21/16 Reported Atorvastatin Calcium 20 Mg Tablet 20 Mg PO HS 06/21/16 Reported Lisinopril-Hctz 10-12.5 Mg Tab (Lisinopril/Hydrochlorothiazide) 1 Each Tablet 1 Tab PO DAILY 06/21/16 Reported Isosorbide Mononitrate Er (Isosorbide Mononitrate) 120 Mg Tab.er.24h 120 Mg PO DAILY 06/21/16 Reported Levemir Flextouch (Insulin Detemir) 100 Unit/1 Ml Insuln.pen 20 Units SQ QHS 30 11/24/15 Rx Novolog Flexpen (Insulin Aspart) 100 Unit/1 Ml Insuln.pen 10 Units SQ TIDAC 30 11/24/15 Rx Novolin N (Nph, Human Insulin Isophane) 100 Unit/1 Ml Vial 0 SQ 11/18/15 Reported Promethazine-Codeine Syrup (Promethazine Hcl/Codeine) 118 Ml Syrup 5 Ml PO Q4-6HRS 11/18/15 Reported Diltiazem 24HR Cd (Diltiazem Hcl) 240 Mg Cap.er.24h 240 Mg PO DAILY 11/18/15 Reported NITROGLYCERIN SubLingual (Nitroglycerin) 0.4 Mg Tab.subl 0.4 Mg SL PRN Q5MIN PRN 11/18/15 Reported Atorvastatin Calcium 40 Mg Tablet 40 Mg PO HS 11/18/[address] reviewed, 1. Widespread multifocal bilateral segmental pulmonary embolism, with nonocclusive lobar embolism involving the right lower and middle lobes. 2. Diffuse tree-in-bud opacification suggestive of acute bronchiolitis. Findings are less confluence than on the prior examination, but now involve the lower lobes. 3. Right heart enlargement with straightening of the interventricular septum possibly due to pulmonary hypertension. Correlate clinically and consider echocardiography if warranted. 4. Short segment high-grade stricture and/or focal obliteration of the right upper lobe bronchus. No adjacent mass or evidence of extrinsic compression. This is stable. Impression . 1. Acute respiratory failure secondary to angioedema, self extubated 07/14, reintubated 07/15, s/p cp arrest, pe, dvt, s/p tpa 2. Lisinopril induced angioedema. 3. Chronic obstructive pulmonary disease. 4. Hypertension. 5. Coronary artery disease. 6. [place] 7. anemia, ? gib Plan . 1. cont vent support, setting reviewed, review abg, not stable for sbt 2. Continue steroids. 3. GI prophylaxis. 4. nephro consulted, reviewed case w nephro 5. cont pressors to keep map 65 6. no hd 7. Atrovent only. is tachy 8. am abg, pcxr 9. agree w iv fluid 10. agree w prbc, stop hep gtt, s/p ivc fliter 07/17, cath site is ok, cont protonix gtt. discussed w rn, rt, dr rojas pt is critically ill, this is cc time 30 min w/o SARAH Heredia MD Jul 18, 2016 09:57
[2016-07-18] MEDS: INSULIN ASPART 300 UNITS/3 ML INSULN.PEN SQ SCH (10:03)
[2016-07-18] MEDS: hydrALAZINE 20 MG/ML VIAL. IVP PRN (10:07)
--- NOTE | 2016-07-18 10:32 | PDOC ---
PROGRESS NOTES Chief Complaint Chief Complaint Angioedema ASSESSMENT AND PLAN: 1. angioedema 2/2 ACEI likely; self extubated 07/14/16 - resolved 2. s/p CP arrest (PEA) sec to Multiple bilateral PE (07/15) 3. NOn occlusive thrombus, R leg (07/15) 4. COPD hx, 5. Low TSH levels in a critically ill patient 6. DM2: insulin requiring 7. Oliguric Hyperkalemic renal failure 8. Metabolic acidosis s/p arrest 9. Dyslipidemia on statin 10. HYpotensive shock on 3 pressors 11. Acute respiratory failure - intubated again (07/15) secondary to code blue ( PEA # 2) History of Present Illness History of Present Illness Intubated, sedated, seen in ICU on 6 gtts: levophed, vasopressin, TPN, insulin gtt, fentanyl and versed Hgb dropped to 5.7 today NO overt bleeding seen - just got 1 pRBC today To start PPI gtt peer pulmo -likely stress induced gastritis etc from cardiac arrest/stress ulcer Off insulin gtt - BS today 400s BRADYCARDIC TODAY 40s - cards aware On heparin gtt low dose, for the PE and DVT (anemia hgb 6 plus today), s./p IVC filter tuesday () I did speak with Zain, spouse today re critical status of pt and VERY poor PROGNOSIS - she says keep doing everything, Seems to me she knows there is so much going on, but may have some limited education even if i tried to explain much to her on phone PLAN: Inc levemir to 35 BID Start novolog 10 q6 scheduled on top of high dose SSI Novolog 20x 1 now Full code for now Involve palliative, need family meet, address code status Recheck HH 12 noon Tansfuse if less then 7 Cont low dose heparin gtt Can check FOBT GI consult for anemia if not already done Remains critically ill Vitals Vitals Vital Signs Date Time Temp Pulse Resp B/P Pulse Ox O2 Delivery O2 Flow Rate FiO2 07/18/16 10:07 64 220/84 07/18/16 08:47 100 Ventilator 07/18/16 08:18 98.0 25 98.0 Physical Exam General: Other (SEDATED) Heart: Regular rate, Normal S1, Normal S2, No murmurs, Gallops Lungs: Crackles, Other (decrease bs) Abdomen: Normal bowel sounds, Soft, No tenderness, No hepatosplenomegaly, No masses Extremities: No clubbing, No cyanosis, No edema, Normal pulses, No tenderness/ swelling Skin: No rashes Labs LABS Laboratory Tests Test 07/17/16 12:15 07/17/16 18:52 07/17/16 20:47 07/18/16 01:00 Glucose (Fingerstick) 164mg/dL (70-99) 249mg/dL (70-99) 285mg/dL (70-99) White Blood Count 10.4x10^3/uL (4.0-11.0) Red Blood Count 2.46x10^6/uL (4.30-5.70) Hemoglobin 6.9g/dL (13.0-17.5) Hematocrit 21.2% (39.0-53.0) Mean Corpuscular Volume 86fL (79-100) Mean Corpuscular Hemoglobin 28pg (25-35) Mean Corpuscular Hemoglobin Concent 33g/dL (31-37) Red Cell Distribution Width 14.6% (11.5-14.5) Platelet Count 152x10^3/uL (140-400) Test 07/18/16 05:40 07/18/16 05:45 07/18/16 07:43 07/18/16 07:52 Heparin Anti-Xa Act, Unfractionated 0.22IU/mL (0.30-0.70) Sodium Level 142mmol/L (136-145) Potassium Level 3.3mmol/L (3.5-5.1) Chloride Level 109mmol/L (98-107) Carbon Dioxide Level 21mmol/L (21-32) Anion Gap 12 (6-14) Blood Urea Nitrogen 80mg/dL (8-26) Creatinine 2.0mg/dL (0.7-1.3) Estimated GFR (Cockcroft-Gault) 39.8 Glucose Level 447mg/dL (70-99) Calcium Level 7.6mg/dL (8.5-10.1) Phosphorus Level 4.4mg/dL (2.6-4.7) Magnesium Level 2.4mg/dL (1.8-2.4) Albumin 2.0g/dL (3.4-5.0) White Blood Count 9.6x10^3/uL (4.0-11.0) Red Blood Count 2.26x10^6/uL (4.30-5.70) Hemoglobin 6.4g/dL (13.0-17.5) Hematocrit 19.6% (39.0-53.0) Mean Corpuscular Volume 87fL (79-100) Mean Corpuscular Hemoglobin 29pg (25-35) Mean Corpuscular Hemoglobin Concent 33g/dL (31-37) Red Cell Distribution Width 14.5% (11.5-14.5) Platelet Count 146x10^3/uL (140-400) Neutrophils (%) (Auto) 82% (31-73) Lymphocytes (%) (Auto) 9% (24-48) Monocytes (%) (Auto) 8% (0-9) Eosinophils (%) (Auto) 0% (0-3) Basophils (%) (Auto) 0% (0-3) Neutrophils # (Auto) 7.9x10^3uL (1.8-7.7) Lymphocytes # (Auto) 0.9x10^3/uL (1.0-4.8) Monocytes # (Auto) 0.8x10^3/uL (0.0-1.1) Eosinophils # (Auto) 0.0x10^3/uL (0.0-0.7) Basophils # (Auto) 0.0x10^3/uL (0.0-0.2) O2 Saturation 97% (92-99) Arterial Blood pH 7.42 (7.35-7.45) Arterial Blood pCO2 at Patient Temp 36mmHg (35-46) Arterial Blood pO2 at Patient Temp 115mmHg (65-108) Arterial Blood HCO3 23mmol/L (21-28) Arterial Blood Base Excess -2mmol/L (-3-3) FiO2 40.0 Glucose (Fingerstick) 438mg/dL (70-99) Review of Systems Review of Systems intuabted,s edated Assessment and Plan Assessmemt and Plan Problems Medical Problems: (1) COPD exacerbation Status: Acute (2) Hyperglycemia Status: Acute Problems: Comment Review of Relevant I have reviewed the following items valerie (where applicable) has been applied. Labs Laboratory Tests Test 07/16/16 10:55 07/16/16 12:00 07/16/16 12:15 07/16/16 13:04 Glucose (Fingerstick) 265mg/dL (70-99) 220mg/dL (70-99) 192mg/dL (70-99) Heparin Anti-Xa Act, Unfractionated 0.64IU/mL (0.30-0.70) Potassium Level 4.4mmol/L (3.5-5.1) Test 07/16/16 14:08 07/16/16 15:19 07/16/16 16:25 07/16/16 17:33 Glucose (Fingerstick) 159mg/dL (70-99) 149mg/dL (70-99) 123mg/dL (70-99) 123mg/dL (70-99) Test 07/16/16 18:00 07/16/16 18:37 07/16/16 19:52 07/16/16 20:56 Heparin Anti-Xa Act, Unfractionated 0.41IU/mL (0.30-0.70) Glucose (Fingerstick) 116mg/dL (70-99) 116mg/dL (70-99) 120mg/dL (70-99) Test 07/16/16 22:00 07/16/16 23:04 07/17/16 00:13 07/17/16 01:17 Glucose (Fingerstick) 161mg/dL (70-99) 156mg/dL (70-99) 144mg/dL (70-99) 153mg/dL (70-99) Test 07/17/16 02:22 07/17/16 03:24 07/17/16 04:28 07/17/16 05:30 Glucose (Fingerstick) 162mg/dL (70-99) 152mg/dL (70-99) 139mg/dL (70-99) White Blood Count 12.4x10^3/uL (4.0-11.0) Red Blood Count 1.94x10^6/uL (4.30-5.70) Hemoglobin 5.3g/dL (13.0-17.5) Hematocrit 16.2% (39.0-53.0) Mean Corpuscular Volume 83fL (79-100) Mean Corpuscular Hemoglobin 27pg (25-35) Mean Corpuscular Hemoglobin Concent 33g/dL (31-37) Red Cell Distribution Width 14.5% (11.5-14.5) Platelet Count 257x10^3/uL (140-400) Neutrophils (%) (Auto) 82% (31-73) Lymphocytes (%) (Auto) 10% (24-48) Monocytes (%) (Auto) 8% (0-9) Eosinophils (%) (Auto) 0% (0-3) Basophils (%) (Auto) 0% (0-3) Neutrophils # (Auto) 10.1x10^3uL (1.8-7.7) Lymphocytes # (Auto) 1.2x10^3/uL (1.0-4.8) Monocytes # (Auto) 1.0x10^3/uL (0.0-1.1) Eosinophils # (Auto) 0.0x10^3/uL (0.0-0.7) Basophils # (Auto) 0.0x10^3/uL (0.0-0.2) Heparin Anti-Xa Act, Unfractionated 0.35IU/mL (0.30-0.70) Sodium Level 146mmol/L (136-145) Potassium Level 4.1mmol/L (3.5-5.1) Chloride Level 113mmol/L (98-107) Carbon Dioxide Level 24mmol/L (21-32) Anion Gap 9 (6-14) Blood Urea Nitrogen 76mg/dL (8-26) Creatinine 2.2mg/dL (0.7-1.3) Estimated GFR (Cockcroft-Gault) 35.7 BUN/Creatinine Ratio 35 (6-20) Glucose Level 146mg/dL (70-99) Calcium Level 7.4mg/dL (8.5-10.1) Phosphorus Level 5.8mg/dL (2.6-4.7) Magnesium Level 2.5mg/dL (1.8-2.4) Total Bilirubin 0.2mg/dL (0.2-1.0) Aspartate Amino Transf (AST/SGOT) 1105U/L (15-37) Alanine Aminotransferase (ALT/SGPT) 786U/L (16-63) Alkaline Phosphatase 135U/L (46-116) Total Protein 4.9g/dL (6.4-8.2) Albumin 1.8g/dL (3.4-5.0) Albumin/Globulin Ratio 0.6 (1.0-1.7) Test 07/17/16 05:33 07/17/16 06:46 07/17/16 07:42 07/17/16 08:00 Glucose (Fingerstick) 150mg/dL (70-99) 128mg/dL (70-99) 144mg/dL (70-99) O2 Saturation 97% (92-99) Arterial Blood pH 7.35 (7.35-7.45) Arterial Blood pCO2 at Patient Temp 38mmHg (35-46) Arterial Blood pO2 at Patient Temp 114mmHg (65-108) Arterial Blood HCO3 21mmol/L (21-28) Arterial Blood Base Excess -4mmol/L (-3-3) FiO2 40 Test 07/17/16 09:02 07/17/16 12:15 07/17/16 18:52 07/17/16 20:47 Glucose (Fingerstick) 139mg/dL (70-99) 164mg/dL (70-99) 249mg/dL (70-99) 285mg/dL (70-99) Test 07/18/16 01:00 07/18/16 05:40 07/18/16 05:45 07/18/16 07:43 White Blood Count 10.4x10^3/uL (4.0-11.0) 9.6x10^3/uL (4.0-11.0) Red Blood Count 2.46x10^6/uL (4.30-5.70) 2.26x10^6/uL (4.30-5.70) Hemoglobin 6.9g/dL (13.0-17.5) 6.4g/dL (13.0-17.5) Hematocrit 21.2% (39.0-53.0) 19.6% (39.0-53.0) Mean Corpuscular Volume 86fL (79-100) 87fL (79-100) Mean Corpuscular Hemoglobin 28pg (25-35) 29pg (25-35) Mean Corpuscular Hemoglobin Concent 33g/dL (31-37) 33g/dL (31-37) Red Cell Distribution Width 14.6% (11.5-14.5) 14.5% (11.5-14.5) Platelet Count 152x10^3/uL (140-400) 146x10^3/uL (140-400) Heparin Anti-Xa Act, Unfractionated 0.22IU/mL (0.30-0.70) Sodium Level 142mmol/L (136-145) Potassium Level 3.3mmol/L (3.5-5.1) Chloride Level 109mmol/L (98-107) Carbon Dioxide Level 21mmol/L (21-32) Anion Gap 12 (6-14) Blood Urea Nitrogen 80mg/dL (8-26) Creatinine 2.0mg/dL (0.7-1.3) Estimated GFR (Cockcroft-Gault) 39.8 Glucose Level 447mg/dL (70-99) Calcium Level 7.6mg/dL (8.5-10.1) Phosphorus Level 4.4mg/dL (2.6-4.7) Magnesium Level 2.4mg/dL (1.8-2.4) Albumin 2.0g/dL (3.4-5.0) Neutrophils (%) (Auto) 82% (31-73) Lymphocytes (%) (Auto) 9% (24-48) Monocytes (%) (Auto) 8% (0-9) Eosinophils (%) (Auto) 0% (0-3) Basophils (%) (Auto) 0% (0-3) Neutrophils # (Auto) 7.9x10^3uL (1.8-7.7) Lymphocytes # (Auto) 0.9x10^3/uL (1.0-4.8) Monocytes # (Auto) 0.8x10^3/uL (0.0-1.1) Eosinophils # (Auto) 0.0x10^3/uL (0.0-0.7) Basophils # (Auto) 0.0x10^3/uL (0.0-0.2) O2 Saturation 97% (92-99) Arterial Blood pH 7.42 (7.35-7.45) Arterial Blood pCO2 at Patient Temp 36mmHg (35-46) Arterial Blood pO2 at Patient Temp 115mmHg (65-108) Arterial Blood HCO3 23mmol/L (21-28) Arterial Blood Base Excess -2mmol/L (-3-3) FiO2 40.0 Test 07/18/16 07:52 Glucose (Fingerstick) 438mg/dL (70-99) Laboratory Tests Test 07/17/16 12:15 07/17/16 18:52 07/17/16 20:47 07/18/16 01:00 Glucose (Fingerstick) 164mg/dL (70-99) 249mg/dL (70-99) 285mg/dL (70-99) White Blood Count 10.4x10^3/uL (4.0-11.0) Red Blood Count 2.46x10^6/uL (4.30-5.70) Hemoglobin 6.9g/dL (13.0-17.5) Hematocrit 21.2% (39.0-53.0) Mean Corpuscular Volume 86fL (79-100) Mean Corpuscular Hemoglobin 28pg (25-35) Mean Corpuscular Hemoglobin Concent 33g/dL (31-37) Red Cell Distribution Width 14.6% (11.5-14.5) Platelet Count 152x10^3/uL (140-400) Test 07/18/16 05:40 07/18/16 05:45 07/18/16 07:43 07/18/16 07:52 Heparin Anti-Xa Act, Unfractionated 0.22IU/mL (0.30-0.70) Sodium Level 142mmol/L (136-145) Potassium Level 3.3mmol/L (3.5-5.1) Chloride Level 109mmol/L (98-107) Carbon Dioxide Level 21mmol/L (21-32) Anion Gap 12 (6-14) Blood Urea Nitrogen 80mg/dL (8-26) Creatinine 2.0mg/dL (0.7-1.3) Estimated GFR (Cockcroft-Gault) 39.8 Glucose Level 447mg/dL (70-99) Calcium Level 7.6mg/dL (8.5-10.1) Phosphorus Level 4.4mg/dL (2.6-4.7) Magnesium Level 2.4mg/dL (1.8-2.4) Albumin 2.0g/dL (3.4-5.0) White Blood Count 9.6x10^3/uL (4.0-11.0) Red Blood Count 2.26x10^6/uL (4.30-5.70) Hemoglobin 6.4g/dL (13.0-17.5) Hematocrit 19.6% (39.0-53.0) Mean Corpuscular Volume 87fL (79-100) Mean Corpuscular Hemoglobin 29pg (25-35) Mean Corpuscular Hemoglobin Concent 33g/dL (31-37) Red Cell Distribution Width 14.5% (11.5-14.5) Platelet Count 146x10^3/uL (140-400) Neutrophils (%) (Auto) 82% (31-73) Lymphocytes (%) (Auto) 9% (24-48) Monocytes (%) (Auto) 8% (0-9) Eosinophils (%) (Auto) 0% (0-3) Basophils (%) (Auto) 0% (0-3) Neutrophils # (Auto) 7.9x10^3uL (1.8-7.7) Lymphocytes # (Auto) 0.9x10^3/uL (1.0-4.8) Monocytes # (Auto) 0.8x10^3/uL (0.0-1.1) Eosinophils # (Auto) 0.0x10^3/uL (0.0-0.7) Basophils # (Auto) 0.0x10^3/uL (0.0-0.2) O2 Saturation 97% (92-99) Arterial Blood pH 7.42 (7.35-7.45) Arterial Blood pCO2 at Patient Temp 36mmHg (35-46) Arterial Blood pO2 at Patient Temp 115mmHg (65-108) Arterial Blood HCO3 23mmol/L (21-28) Arterial Blood Base Excess -2mmol/L (-3-3) FiO2 40.0 Glucose (Fingerstick) 438mg/dL (70-99) Microbiology 07/15/16 Blood Culture - Preliminary, Resulted NO GROWTH AFTER 2 DAYS 07/14/16 Urine Culture - Final, Complete 07/14/16 Urine Culture Result 1 (MARÍA) - Final, Complete 07/14/16 Urine Culture Result 2 (MARÍA) - Final, Complete 07/14/16 Antimicrobic Susceptibility - Final, Complete Medications Current Medications Albuterol/ Ipratropium (Duoneb) 6 ml 1X ONCE NEB Last administered on 12:34; Start 07/12/16 at 12:30; Stop 07/12/16 at 12:31; Status DC Prednisone 60 mg 60 mg 1X ONCE PO Last administered on 07/12/16 12:40; Start 07/12/16 at 12:30; Stop 07/12/16 at 12:31; Status DC Sodium Chloride (Iv Sodium Chloride 0.9% 1000ml Bag) 1,000 ml @ 1,000 mls/hr 1X ONCE IV Last administered on 07/12/16 13:12; Start 07/12/16 at 13:15; Stop 07/12/16 at 14:14; Status DC Insulin Human Regular (Novolin R Vial) 10 unit 1X ONCE IV Last administered on 07/12/16 13:16; Start 07/12/16 at 13:15; Stop 07/12/16 at 13:16; Status DC Diphenhydramine HCl (Benadryl) 50 mg STK-MED ONCE .ROUTE ; Start 07/12/16 at 14: 55; Stop 07/12/16 at 14:56; Status DC Diphenhydramine HCl (Benadryl) 50 mg 1X ONCE IVP Last administered on 15:15; Start 07/12/16 at 15:15; Stop 07/12/16 at 15:16; Status DC Atorvastatin Calcium (Lipitor) 40 mg HS PO Last administered on 07/17/16 20:50 ; Start 07/12/16 at 21:00 Diltiazem HCl (Cardizem 24hr Cd) 240 mg DAILY PO ; Start 07/12/16 at 16:30; Stop 07/13/16 at 17:18; Status DC Insulin Aspart (Novolog) 10 units TIDAC SQ ; Start 07/12/16 at 16:30; Stop 07/12 at 16:30; Status DC Insulin Detemir (Levemir) 20 units QHS SQ ; Start 07/12/16 at 21:00; Stop at 21:00; Status DC Promethazine HCl/ Codeine (Phenergan With Codeine) 5 ml QID PO ; Start 07/12/16 at 17:00; Stop 07/13/16 at 17:18; Status DC Non-Formulary Medication 2 puff BID IH ; Start 07/12/16 at 21:00; Status UNV Non-Formulary Medication 2.5 gm DAILY IH ; Start 07/13/16 at 09:00; Status UNV Budesonide (Pulmicort) 0.5 mg RTBID NEB Last administered on 07/13/16 07:30; Start 07/12/16 at 20:00; Stop 07/13/16 at 11:27; Status DC Albuterol/ Ipratropium (Duoneb) 3 ml RTQID NEB Last administered on 07/16/16 07:47; Start 07/12/16 at 20:00; Stop 07/16/16 at 08:38; Status DC Methylprednisolone Sodium Succinate (Solu-Medrol 40mg Vial) 60 mg 1X ONCE IV Last administered on 07/12/16 16:06; Start 07/12/16 at 16:30; Stop 07/12/16 at 16:31; Status DC Methylprednisolone Sodium Succinate (Solu-Medrol 40mg Vial) 60 mg DAILY IV ; Start 07/13/16 at 09:00; Stop 07/13/16 at 09:00; Status DC Pantoprazole Sodium (Protonix Vial) 40 mg DAILY IVP Last administered on 08:43; Start 07/13/16 at 09:00; Stop 07/17/16 at 20:37; Status DC Diphenhydramine HCl 25 mg 25 mg PRN Q6HRS PRN IVP ANAPHYLAXIS Last administered on 07/12/16 16:06; Start 07/12/16 at 16:00 Sodium Chloride (Iv Sodium Chloride 0.9% 1000ml Bag) 1,000 ml @ 150 mls/hr Q6H40M IV Last administered on 07/14/16 01:21; Start 07/12/16 at 16:30; Stop 07/14/16 at 09:31; Status DC Albuterol/ Ipratropium (Duoneb) 3 ml QID NEB ; Start 07/12/16 at 17:00; Status UNV Albuterol Sulfate (Ventolin Neb Soln) 2.5 mg PRN Q2HR PRN NEB SHORTNESS OF BREATH Last administered on 07/15/16 04:15; Start 07/12/16 at 16:00 Insulin Aspart (Novolog) 0-9 UNITS QID SQ Last administered on 07/14/16 08:37 ; Start 07/12/16 at 17:00; Stop 07/14/16 at 09:31; Status DC Dextrose 12.5 gm PRN Q15MIN PRN IV SEE COMMENTS; Start 07/12/16 at 16:00; Stop 07/15/16 at 12:46; Status DC Insulin Detemir (Levemir) 15 units QHS SQ ; Start 07/12/16 at 21:00; Stop at 21:00; Status DC Enoxaparin Sodium (Lovenox 40mg Syringe) 40 mg DAILY SQ Last administered on 08:54; Start 07/12/16 at 16:30; Stop 07/15/16 at 14:28; Status DC Insulin Detemir (Levemir) 20 units QHS SQ Last administered on 07/12/16 23:49 ; Start 07/12/16 at 21:00; Stop 07/13/16 at 15:18; Status DC Succinylcholine Chloride 200 mg 200 mg STK-MED ONCE .ROUTE ; Start 07/12/16 at 17:46; Stop 07/12/16 at 17:47; Status DC Propofol (Diprivan) 100 ml @ As Directed STK-MED ONCE IV ; Start 07/12/16 at 17 :46; Stop 07/12/16 at 17:47; Status DC Lidocaine HCl 100 mg STK-MED ONCE .ROUTE ; Start 07/12/16 at 18:02; Stop at 18:03; Status DC Ketamine HCl 500 mg 1X ONCE IV ; Start 07/12/16 at 18:30; Stop 07/12/16 at 18: 31; Status DC Midazolam HCl (Versed) 5 mg STK-MED ONCE .ROUTE ; Start 07/12/16 at 18:14; Stop 07/12/16 at 18:15; Status DC Midazolam HCl (Versed) 2 mg 1X ONCE IV ; Start 07/12/16 at 18:30; Stop at 18:31; Status DC Glycopyrrolate (Robinul) 1 mg 1X ONCE IV ; Start 07/12/16 at 18:30; Stop at 18:31; Status DC Oxymetazoline HCl (Afrin) 2 spray 1X ONCE NS ; Start 07/12/16 at 18:30; Stop at 18:31; Status DC Lidocaine HCl 30 ml STK-MED ONCE .ROUTE ; Start 07/12/16 at 18:19; Stop at 18:20; Status DC Vecuronium Quinter 6 mg 6 mg PRN Q4HRS PRN IV ANXIETY / AGITATION Last administered on 07/12/16 19:55; Start 07/12/16 at 19:00; Stop 07/15/16 at 07:58 ; Status DC Propofol (Diprivan) 100 ml @ 0 mls/hr CONT PRN IV SEE I/O RECORD Last administered on 07/14/16 13:42; Start 07/12/16 at 19:00; Stop 07/15/16 at 07:58 ; Status DC Insulin Aspart 10 units 10 units 1X ONCE SQ Last administered on 07/12/16 19: 41; Start 07/12/16 at 19:45; Stop 07/12/16 at 19:46; Status DC Vecuronium Quinter 100 mg/ Dextrose 100 ml @ 0 mls/hr CONT PRN IV SEE I/O RECORD Last administered on 07/13/16 20:48; Start 07/12/16 at 21:00; Stop 07/14 at 09:31; Status DC Fentanyl Citrate (Fentanyl 600 Mcg/30 ml RN INFUSION) 30 ml @ 0 mls/hr CONT PRN IV PROTOCOL Last administered on 07/14/16 09:33; Start 07/12/16 at 22:00; Stop at 07:58; Status DC Chlorhexidine Gluconate (Peridex) 15 ml BID MM Last administered on 07/18/16 09:55; Start 07/13/16 at 09:00 Methylprednisolone Sodium Succinate (Solu-Medrol 125mg Vial) 125 mg BID IV Last administered on 07/14/16 21:02; Start 07/13/16 at 09:00; Stop 07/15/16 at 07:58; Status DC Rocuronium Quinter (Zemuron) 50 mg STK-MED ONCE .ROUTE ; Start 07/12/16 at 15:00 ; Stop 07/13/16 at 08:54; Status DC Glycopyrrolate (Robinul) 1 mg STK-MED ONCE .ROUTE ; Start 07/12/16 at 15:00; Stop 07/13/16 at 08:54; Status DC Lidocaine HCl 30 ml STK-MED ONCE .ROUTE ; Start 07/12/16 at 18:00; Stop at 09:05; Status DC Midazolam HCl (Versed) 5 mg STK-MED ONCE .ROUTE ; Start 07/12/16 at 18:00; Stop 07/13/16 at 09:05; Status DC Propofol (Diprivan) 1,000 mg STK-MED ONCE IV ; Start 07/12/16 at 18:00; Stop at 09:05; Status DC Succinylcholine Chloride (Anectine) 200 mg STK-MED ONCE .ROUTE ; Start 07/12/16 at 18:00; Stop 07/13/16 at 09:05; Status DC Multi-Ingred Cream/Lotion/Oil/ Oint (Artificial Tears Eye Oint) 1 margie PRN Q1HR PRN OU DRY EYE Last administered on 07/13/16 15:45; Start 07/13/16 at 11:00 Ketamine HCl 500 mg STK-MED ONCE .ROUTE ; Start 07/12/16 at 18:30; Stop at 12:05; Status DC Insulin Aspart (Novolog) 10 units 1X STAT SQ Last administered on 07/13/16 12 :36; Start 07/13/16 at 12:17; Stop 07/13/16 at 12:20; Status DC Insulin Aspart (Novolog) 10 units 1X ONCE SQ Last administered on 07/13/16 14 :31; Start 07/13/16 at 14:30; Stop 07/13/16 at 14:31; Status DC Insulin Detemir (Levemir) 40 units QHS SQ Last administered on 07/13/16 20:50 ; Start 07/13/16 at 21:00; Stop 07/14/16 at 09:31; Status DC Benzocaine (Hurricaine One) 1 spray STK-MED ONCE .ROUTE ; Start 07/12/16 at 12: 00; Stop 07/13/16 at 16:00; Status DC Lidocaine HCl 5 margie 5 margie STK-MED ONCE TP ; Start 07/12/16 at 12:00; Stop at 16:00; Status DC Insulin Human Regular/Sodium Chloride (Novolin R Vial/ Iv Normal Saline 150ml) 151.5 ml @ 0 mls/hr CONT PRN IV SEE I/O RECORD Last administered on 07/14/16 10:01; Start 07/14/16 at 09:30; Stop 07/15/16 at 07:58; Status DC Info 1 each 1 each PRN DAILY PRN MC SEE COMMENTS Last administered on 08:27; Start 07/14/16 at 09:30 Magnesium Sulfate/ Dextrose 50 ml @ 25 mls/hr PRN DAILY PRN IV for Mag < 1.7 on am labs; Start 07/14/16 at 11:15; Stop 07/15/16 at 07:58; Status DC Sodium Chloride 500 ml @ 500 mls/hr QID PRN IV UO< 30cc/hr over previous 6hrs ; Start 07/14/16 at 11:15; Stop 07/14/16 at 11:26; Status DC Sodium Chloride 500 ml @ 500 mls/hr PRN QID PRN IV UO< 30cc/hr over previous 6hrs Last administered on 07/16/16 10:00; Start 07/14/16 at 11:26 Ceftriaxone Sodium 1 gm/ Sodium Chloride 50 ml @ 100 mls/hr Q24H IV Last administered on 07/17/16 12:01; Start 07/14/16 at 12:00; Stop 07/20/16 at 12:29 Sodium Chloride/ Magnesium Sulfate/ Calcium Gluconate/ Multivitamins/ Chromium/ Copper/ Manganese/Seleni/ Zn/Total Parenteral Nutrition/Amino Acids/Dextrose ( Sodium Chloride/ Infuvite Adult/ Multitrace-5 Conc/ Tpn - Tpn Fluid/ Trophamine / Dextrose 70%-Water Iv Soln) 1,512 ml @ 63 mls/hr TPN CONT IV Last administered on 07/14/16 22:29; Start 07/14/16 at 22:00; Stop 07/15/16 at 21:59 ; Status DC Hydralazine HCl (Apresoline) 10 mg PRN Q4HRS PRN IVP ELEVATED BP, SEE COMMENTS Last administered on 07/18/16 10:07; Start 07/14/16 at 22:30 Methylprednisolone Sodium Succinate (Solu-Medrol 125mg Vial) 125 mg DAILY IV Last administered on 07/15/16 08:55; Start 07/15/16 at 09:00; Stop 07/16/16 at 08:35; Status DC Insulin Aspart (Novolog) 0-9 UNITS TIDWMEALS SQ Last administered on 07/15/16 16:16; Start 07/15/16 at 08:00; Stop 07/16/16 at 07:16; Status DC Dextrose 12.5 gm PRN Q15MIN PRN IV SEE COMMENTS; Start 07/15/16 at 08:00 Insulin Detemir (Levemir) 20 units QHS SQ Last administered on 07/15/16 21:48 ; Start 07/15/16 at 21:00; Stop 07/16/16 at 07:16; Status DC Insulin Aspart (Novolog) 10 units TIDAC SQ ; Start 07/15/16 at 11:30; Stop 07/16 at 07:16; Status DC Sodium Polystyrene Sulfonate (Kayexalate) 30 gm 1X ONCE PO ; Start 07/15/16 at 08:00; Stop 07/15/16 at 08:08; Status DC Hydrochlorothiazide (Microzide) 12.5 mg DAILY PO ; Start 07/15/16 at 09:00; Stop 07/16/16 at 07:39; Status DC Isosorbide Mononitrate (Imdur) 120 mg DAILY PO ; Start 07/15/16 at 09:00; Stop 07/15/16 at 09:00; Status DC Diltiazem HCl (Cardizem 24hr Cd) 240 mg DAILY PO ; Start 07/15/16 at 09:00; Stop 07/16/16 at 07:39; Status DC Guaifenesin (Mucinex) 600 mg BID PO ; Start 07/15/16 at 09:00; Stop 07/16/16 at 07:39; Status DC Mupirocin (Bactroban) 1 margie BID NS Last administered on 07/18/16 09:55; Start 07/15/16 at 09:00 Isosorbide Mononitrate (Imdur) 120 mg DAILY PO ; Start 07/15/16 at 09:00; Stop 07/16/16 at 07:39; Status DC Sodium Bicarbonate 50 meq 1X ONCE IV Last administered on 07/15/16 15:22; Start 07/15/16 at 10:45; Stop 07/15/16 at 10:46; Status DC Sodium Bicarbonate 50 meq 50 meq STK-MED ONCE .ROUTE ; Start 07/15/16 at 10:34; Stop 07/15/16 at 10:35; Status DC Dopamine HCl/ Dextrose 250 ml @ As Directed STK-MED ONCE IV ; Start 07/15/16 at 10:37; Stop 07/15/16 at 10:38; Status DC Midazolam HCl (Versed) 5 mg STK-MED ONCE .ROUTE ; Start 07/15/16 at 10:41; Stop 07/15/16 at 10:42; Status DC Iohexol 100 ml 100 ml STK-MED ONCE .ROUTE ; Start 07/15/16 at 10:45; Stop at 10:46; Status DC Heparin Sodium/ Sodium Chloride 1,500 ml @ As Directed STK-MED ONCE .ROUTE ; Start 07/15/16 at 10:45; Stop 07/15/16 at 10:46; Status DC Lidocaine HCl 20 ml 20 ml STK-MED ONCE .ROUTE ; Start 07/15/16 at 10:45; Stop at 10:46; Status DC Dopamine HCl/ Dextrose 250 ml @ 16.255 mls/ hr CONT PRN IV SEE I/O RECORD Last administered on 07/16/16 23:10; Start 07/15/16 at 11:00 Sodium Chloride 1,000 ml @ 1,000 mls/hr 1X ONCE IV Last administered on 11:00; Start 07/15/16 at 11:00; Stop 07/15/16 at 11:59; Status DC Norepinephrine Bitartrate/Sodium Chloride (Levophed Vial/ Iv Sodium Chloride 0.9 % 250ml) 258 ml @ 0 mls/hr CONT PRN IV SEE I/O RECORD Last administered on 07/17 00:51; Start 07/15/16 at 11:00 Midazolam HCl (Versed) 5 mg STK-MED ONCE .ROUTE ; Start 07/15/16 at 10:54; Stop 07/15/16 at 10:55; Status DC Fentanyl Citrate (Fentanyl 2ml Vial) 100 mcg STK-MED ONCE .ROUTE ; Start at 11:02; Stop 07/15/16 at 11:03; Status DC Vecuronium Quinter 10 mg 10 mg STK-MED ONCE IV ; Start 07/15/16 at 11:03; Stop 07/15/16 at 11:04; Status DC Midazolam HCl (Versed 100mg/ 100ml Premix) 100 ml @ As Directed STK-MED ONCE IV ; Start 07/15/16 at 11:03; Stop 07/15/16 at 11:04; Status DC Iohexol (Omnipaque 300 Mg/ml) 112 ml 1X ONCE IART Last administered on 11:56; Start 07/15/16 at 12:00; Stop 07/15/16 at 12:01; Status DC Lidocaine HCl 10 ml 1X ONCE IJ Last administered on 07/15/16 11:57; Start at 12:00; Stop 07/15/16 at 12:01; Status DC Heparin Sodium/ Sodium Chloride 1000 unit 1,000 unit 1X ONCE IART ; Start 07/15 at 12:00; Stop 07/15/16 at 12:01; Status DC Sodium Chloride/ Magnesium Sulfate/ Calcium Gluconate/ Multivitamins/ Chromium/ Copper/ Manganese/Seleni/ Zn/Total Parenteral Nutrition/Amino Acids/Dextrose ( Sodium Chloride/ Infuvite Adult/ Multitrace-5 Conc/ Tpn - Tpn Fluid/ Trophamine / Dextrose 70%-Water Iv Soln) 1,512 ml @ 63 mls/hr TPN CONT IV Last administered on 07/15/16 21:27; Start 07/15/16 at 22:00; Stop 07/16/16 at 21:59 ; Status DC Iohexol (Omnipaque 300 Mg/ml) 75 ml 1X ONCE IV Last administered on 07/15/16 13:43; Start 07/15/16 at 13:15; Stop 07/15/16 at 13:16; Status DC Info (Do NOT chart on this entry -- for MONITORING) 1 each PRN DAILY PRN MC SEE COMMENTS; Start 07/15/16 at 13:15; Stop 07/17/16 at 13:14; Status DC Heparin Sodium (Porcine) 7000 unit 7,000 unit 1X ONCE IV Last administered on 07/15/16 15:27; Start 07/15/16 at 14:45; Stop 07/15/16 at 14:46; Status DC Heparin Sodium/ Dextrose 500 ml @ 0 mls/hr CONT PRN IV SEE I/O RECORD Last administered on 07/17/16 18:41; Start 07/15/16 at 14:30; Stop 07/18/16 at 10:21 ; Status DC Heparin Sodium (Porcine) 2,600 unit PRN Q6HRS PRN IV FOR UFH LEVEL LESS THAN 0.2; Start 07/15/16 at 14:30; Stop 07/18/16 at 10:21; Status DC Heparin Sodium (Porcine) 1,300 unit PRN Q6HRS PRN IV FOR UFH LEVEL 0.2 - 0.29; Start 07/15/16 at 14:30; Stop 07/18/16 at 10:21; Status DC Warfarin Sodium (Coumadin Per Pharmacy) 1 each PRN DAILY PRN MC PER PROTOCOL; Start 07/15/16 at 14:30; Stop 07/15/16 at 14:30; Status DC Sodium Bicarbonate 50 meq 50 meq 1X ONCE IV Last administered on 07/15/16 16: 30; Start 07/15/16 at 16:30; Stop 07/15/16 at 16:34; Status DC Alteplase, Recombinant (Activase) 100 ml @ 50 mls/hr 1X ONCE IV Last administered on 07/15/16 17:30; Start 07/15/16 at 17:30; Stop 07/15/16 at 19:29 ; Status DC Fentanyl Citrate (Fentanyl 2ml Vial) 25 mcg PRN Q1HR PRN IV COMM; Start at 22:30; Stop 07/16/16 at 07:17; Status DC Fentanyl Citrate (Fentanyl 2ml Vial) 50 mcg PRN Q1HR PRN IV COMM Last administered on 07/16/16 05:30; Start 07/15/16 at 22:30; Stop 07/16/16 at 07:17 ; Status DC Scopolamine (Transderm-Scop) 1 patch Q3DAYS TD Last administered on 07/18/16 09:55; Start 07/18/16 at 09:00 Scopolamine 1 patch 1 patch ONCE ONCE TD ; Start 07/15/16 at 23:30; Stop at 23:31; Status DC Sodium Chloride 1,000 ml @ 1,000 mls/hr 1X ONCE IV Last administered on 02:38; Start 07/16/16 at 01:00; Stop 07/16/16 at 01:59; Status DC Midazolam HCl 100 ml @ As Directed STK-MED ONCE IV ; Start 07/16/16 at 01:00; Stop 07/16/16 at 01:01; Status DC Midazolam HCl 100 ml @ 0 mls/hr CONT PRN IV SEE I/O RECORD Last administered on 07/17/16 22:42; Start 07/16/16 at 01:15 Vasopressin 40 unit/Dextrose 102 ml @ 6 mls/hr CONT PRN IV SEE I/O RECORD Last administered on 07/17/16 13:33; Start 07/16/16 at 05:00 Insulin Human Regular 150 unit/ Sodium Chloride 151.5 ml @ 0 mls/hr CONT PRN IV SEE I/O RECORD Last administered on 07/17/16 02:26; Start 07/16/16 at 05:00 ; Stop 07/17/16 at 10:10; Status DC Fentanyl Citrate (Fentanyl 600 Mcg/30 ml RN INFUSION) 30 ml @ 0 mls/hr CONT PRN IV PROTOCOL Last administered on 07/18/16 07:45; Start 07/16/16 at 07:15 Vecuronium Quinter (Norcuron Bolus) 10 mg STK-MED ONCE IV ; Start 07/15/16 at 11 :00; Stop 07/16/16 at 08:06; Status DC Fentanyl Citrate (Fentanyl 2ml Vial) 100 mcg STK-MED ONCE .ROUTE ; Start at 11:00; Stop 07/16/16 at 08:06; Status DC Midazolam HCl (Versed) 10 mg STK-MED ONCE .ROUTE ; Start 07/15/16 at 11:00; Stop 07/16/16 at 08:06; Status DC Dopamine HCl/ Dextrose 400 mg STK-MED ONCE IV ; Start 07/15/16 at 11:00; Stop at 08:06; Status DC Sodium Bicarbonate 50 meq STK-MED ONCE .ROUTE ; Start 07/15/16 at 11:00; Stop at 08:06; Status DC Hydrocortisone Sodium Succinate (Solu-Cortef) 100 mg Q8HRS IV Last administered on 07/18/16 06:10; Start 07/16/16 at 09:00 Sodium Polystyrene Sulfonate 30 gm 30 gm 1X ONCE PO Last administered on 08:41; Start 07/16/16 at 08:30; Stop 07/16/16 at 08:34; Status DC Albumin Human (Plasmanate) 500 ml @ 125 mls/hr PRN Q6HRS PRN IV for CVP < 10; MAP < 65 Last administered on 07/17/16 08:12; Start 07/16/16 at 08:30 Sodium Bicarbonate 50 meq 1X ONCE IV Last administered on 07/16/16 08:41; Start 07/16/16 at 08:45; Stop 07/16/16 at 08:46; Status DC Info (Anti-Coagulation Monitoring By Pharmacy) 1 each PRN DAILY PRN MC SEE COMMENTS; Start 07/16/16 at 08:45; Status Cancel Ipratropium Quinter (Atrovent) 0.5 mg RTQID NEB Last administered on 07/18/16 07:12; Start 07/16/16 at 12:00 Lidocaine/Sodium Bicarbonate (Buffered Lidocaine 1%) 3 ml 1X ONCE IJ Last administered on 07/16/16 10:43; Start 07/16/16 at 09:15; Stop 07/16/16 at 09:16 ; Status DC Heparin Sodium/ Sodium Chloride 60 unit 1X ONCE IV Last administered on 10:44; Start 07/16/16 at 09:15; Stop 07/16/16 at 09:16; Status DC Heparin Sodium (Porcine) 2500 unit 2,500 unit 1X ONCE INT CAT Last administered on 07/16/16 10:44; Start 07/16/16 at 09:15; Stop 07/16/16 at 09:16 ; Status DC Sodium Chloride 40 meq/Sodium Acetate 40 meq/ Magnesium Sulfate 8 meq/Calcium Gluconate 5 meq/ Multivitamins 10 ml/Chromium/ Copper/Manganese/ Seleni/Zn 1 ml / Insulin Human Regular 10 unit/ Total Parenteral Nutrition/Amino Acids/Dextrose / Fat Emulsion Intravenous 1,512 ml @ 63 mls/hr TPN CONT IV Last administered on 07/16/16 21:53; Start 07/16/16 at 22:00; Stop 07/17/16 at 21:59 ; Status DC Pantoprazole Sodium 80 mg/ Sodium Chloride 100 ml @ 10 mls/hr Q10H IV Last administered on 07/18/16 06:10; Start 07/17/16 at 06:45 Sodium Acetate/ Potassium Acetate/ Magnesium Sulfate/ Calcium Gluconate/ Multivitamins/ Chromium/Copper/ Manganese/Seleni/ Zn/Insulin Human Regular/ Total Parenteral Nutrition/Amino Acids/Dextrose/ Fat Emulsion Intravenous ( Calcium Gluconate/ Infuvite Adult/ Multitrace-5 Conc/ Novolin R Vi... 1,512 ml @ 63 mls/hr TPN CONT IV Last administered on 07/17/16 21:49; Start 07/17/16 at 22:00; Stop 07/18/16 at 21:59 Insulin Detemir (Levemir) 25 units BID SQ Last administered on 07/17/16 20:51 ; Start 07/17/16 at 10:30; Stop 07/18/16 at 08:12; Status DC Insulin Aspart (Novolog) 0-9 UNITS TIDWMEALS SQ Last administered on 07/18/16 10:03; Start 07/17/16 at 12:00 Dextrose 12.5 gm PRN Q15MIN PRN IV SEE COMMENTS; Start 07/17/16 at 10:15; Status UNV Iohexol (Omnipaque 300 Mg/ml) 100 ml STK-MED ONCE .ROUTE ; Start 07/17/16 at 10: 45; Stop 07/17/16 at 10:46; Status DC Lidocaine/Sodium Bicarbonate 20 ml 20 ml STK-MED ONCE IJ ; Start 07/17/16 at 10: 45; Stop 07/17/16 at 10:46; Status DC Heparin Sodium/ Sodium Chloride 500 ml @ As Directed STK-MED ONCE .ROUTE ; Start 07/17/16 at 10:46; Stop 07/17/16 at 10:47; Status DC Heparin Sodium/ Sodium Chloride 1,000 unit 1X ONCE IART Last administered on 11:27; Start 07/17/16 at 11:15; Stop 07/17/16 at 11:26; Status DC Lidocaine/Sodium Bicarbonate (Buffered Lidocaine 1%) 3 ml 1X ONCE IJ Last administered on 07/17/16 11:15; Start 07/17/16 at 11:15; Stop 07/17/16 at 11:26 ; Status DC Iohexol (Omnipaque 300 Mg/ml) 40 ml 1X ONCE IART Last administered on 11:26; Start 07/17/16 at 11:15; Stop 07/17/16 at 11:26; Status DC Info (Do NOT chart on this entry -- for MONITORING) 1 each PRN DAILY PRN MC SEE COMMENTS; Start 07/17/16 at 11:30; Stop 07/19/16 at 11:29 Calcium Chloride 2,000 mg STK-MED ONCE IV ; Start 07/16/16 at 13:02; Stop at 13:03; Status DC Epinephrine HCl 4 mg STK-MED ONCE .ROUTE ; Start 07/16/16 at 13:02; Stop at 13:03; Status DC Furosemide 40 mg 40 mg 1X ONCE IVP Last administered on 07/17/16 16:45; Start 07/17/16 at 16:45; Stop 07/17/16 at 16:47; Status DC Propofol (Diprivan) 100 ml @ As Directed STK-MED ONCE IV ; Start 07/17/16 at 16 :36; Stop 07/17/16 at 16:37; Status DC Insulin Detemir (Levemir) 35 units BID SQ Last administered on 07/18/16 10:00 ; Start 07/18/16 at 09:00 Insulin Aspart (Novolog) 10 units Q6HRS SQ ; Start 07/18/16 at 12:00 Insulin Aspart 20 units 20 units 1X ONCE SQ Last administered on 07/18/16 10: 02; Start 07/18/16 at 08:15; Stop 07/18/16 at 08:16; Status DC Sodium Acetate/ Potassium Acetate/ Magnesium Sulfate/ Calcium Gluconate/ Multivitamins/ Chromium/Copper/ Manganese/Seleni/ Zn/Insulin Human Regular/ Total Parenteral Nutrition/Amino Acids/Dextrose/ Fat Emulsion Intravenous ( Calcium Gluconate/ Infuvite Adult/ Multitrace-5 Conc/ Novolin R Vi... 1,512 ml @ 63 mls/hr TPN CONT IV ; Start 07/18/16 at 22:00; Stop 07/19/16 at 21:59 Atropine Sulfate 0.5 mg STK-MED ONCE .ROUTE ; Start 07/18/16 at 09:43; Stop at 09:44; Status DC Active Scripts Active Levemir Flextouch (Insulin Detemir) 100 Unit/1 Ml Insuln.pen 20 Units SQ QHS 30 Days Novolog Flexpen (Insulin Aspart) 100 Unit/1 Ml Insuln.pen 10 Units SQ TIDAC 30 Days Reported Advair 100-50 Diskus (Fluticasone/Salmeterol) 1 Each Disk.w.dev 1 Puff IH BID Spiriva Respimat (Tiotropium Quinter) 4 Gm Mist.inhal 2.5 Gm IH DAILY Symbicort 160-4.5 Mcg Inhaler (Budesonide/Formoterol Fumarate) 10.2 Gm Hfa.aer.ad 2 Puff IH BID Atorvastatin Calcium 20 Mg Tablet 20 Mg PO HS Lisinopril-Hctz 10-12.5 Mg Tab (Lisinopril/Hydrochlorothiazide) 1 Each Tablet 1 Tab PO DAILY Isosorbide Mononitrate Er (Isosorbide Mononitrate) 120 Mg Tab.er.24h 120 Mg PO DAILY Novolin N (Nph, Human Insulin Isophane) 100 Unit/1 Ml Vial 0 SQ Promethazine-Codeine Syrup (Promethazine Hcl/Codeine) 118 Ml Syrup 5 Ml PO Q4- 6HRS Diltiazem 24HR Cd (Diltiazem Hcl) 240 Mg Cap.er.24h 240 Mg PO DAILY NITROGLYCERIN SubLingual (Nitroglycerin) 0.4 Mg Tab.subl 0.4 Mg SL PRN Q5MIN PRN Atorvastatin Calcium 40 Mg Tablet 40 Mg PO HS Vitals/I & O Vital Sign - Last 24 Hours 07/17/16 07/17/16 07/17/16 07/17/16 10:30 11:00 11:23 12:00 Temp 97.5 97.5 Pulse 88 93 Resp 25 B/P 196/52 210/50 Pulse Ox 100 100 100 O2 Delivery Ventilator Ventilator Ventilator 07/17/16 07/17/16 07/17/16 07/17/16 12:00 12:00 12:16 12:40 Temp 98.4 98.4 Pulse 94 89 Resp 25 25 B/P 139/69 156/51 Pulse Ox 100 100 O2 Delivery Mechanical Ventilator Ventilator 07/17/16 07/17/16 07/17/16 07/17/16 13:00 14:00 14:30 15:00 Temp 98.4 98.4 Pulse 80 74 76 Resp 25 25 25 25 B/P 120/40 131/61 147/72 Pulse Ox 100 100 93 100 O2 Delivery Ventilator Ventilator 07/17/16 07/17/16 07/17/16 07/17/16 15:38 16:00 16:00 16:00 Pulse 88 Resp 25 B/P 93/48 Pulse Ox 100 O2 Delivery Ventilator Mechanical Ventilator 07/17/16 07/17/16 07/17/16 07/17/16 16:12 16:59 17:00 18:00 Pulse 92 96 96 Resp 25 25 B/P 211/66 109/50 93/51 Pulse Ox 95 100 100 O2 Delivery Ventilator 07/17/16 07/17/16 07/17/16 07/17/16 19:00 19:58 20:00 20:00 Temp 97.7 97.7 Pulse 75 80 Resp 25 25 B/P 154/42 102/50 140/64 Pulse Ox 99 98 100 O2 Delivery Ventilator Ventilator Ventilator 07/17/16 07/17/16 07/17/16 07/17/16 20:00 20:01 21:00 22:00 Pulse 77 73 Resp 25 25 B/P 121/57 102/54 Pulse Ox 98 100 100 O2 Delivery Mechanical Ventilator Ventilator Ventilator Ventilator 07/17/16 07/17/16 07/18/16 07/18/16 22:14 23:00 00:00 00:00 Pulse 64 Resp 25 B/P 128/47 97/53 Pulse Ox 99 100 O2 Delivery Ventilator Ventilator Mechanical Ventilator 07/18/16 07/18/16 07/18/16 07/18/16 00:00 00:53 01:00 02:00 Temp 97.7 97.7 Pulse 74 74 76 Resp 25 25 25 B/P 123/68 119/66 96/53 Pulse Ox 100 98 100 100 O2 Delivery Ventilator Ventilator Ventilator Ventilator 07/18/16 07/18/16 07/18/16 07/18/16 03:00 03:28 04:00 04:00 Temp 97.8 97.8 Pulse 60 56 Resp 25 25 B/P 126/45 93/53 134/66 Pulse Ox 100 98 100 O2 Delivery Ventilator Ventilator Mechanical Ventilator Ventilator 07/18/16 07/18/16 07/18/16 07/18/16 04:00 05:00 05:25 06:00 Pulse 53 51 Resp 25 25 B/P 124/46 131/46 100/53 97/54 Pulse Ox 100 100 100 O2 Delivery Ventilator Ventilator Ventilator 07/18/16 07/18/16 07/18/16 07/18/16 07:08 07:45 08:15 08:18 Temp 98.0 98.0 Pulse 47 Resp 25 25 25 B/P 174/54 Pulse Ox 100 100 100 O2 Delivery Ventilator Ventilator Ventilator 07/18/16 07/18/16 08:47 10:07 Pulse 64 B/P 220/84 Pulse Ox 100 O2 Delivery Ventilator Intake and Output 07/17/16 07/17/16 07/18/16 15:00 23:00 07:00 Intake Total 70 ml 2486 ml 894.3 ml Output Total 1485 ml 340 ml Balance 70 ml 1001 ml 554.3 ml BALA BRYANT MD Jul 18, 2016 10:32
--- NOTE | 2016-07-18 10:48 | PDOC ---
Provider Note Provider Note RENAL F/U : HAIDERRose S : Intubated. O : Doing better/stable. VSS Afebrile. Neck : Supple. Lungs : Non labored. CVS : RRR ABD : Benign. Ext : Trace edema. Labs, I/Os reviewed. A/P : ARF : ATN. Cr stable. UOP slowly better. RESP FAILURE : Intubated. ANEMIA : Low Hb. Source? Supportive care. No new issues. DENIS BETH MD Jul 18, 2016 10:47
[2016-07-18] MEDS: CEFTRIAXONE SODIUM 1 GM in IV NORMAL SALINE 50ML 50 ML IV SCH (11:32)
[2016-07-18] MEDS ORDERED: DEXTROSE 50% 25 GM / 50ML DISP.SYRIN. IV PRN (11:45)
[2016-07-18] MEDS ORDERED: INSULIN REGULAR VIAL 150 UNIT in 0.9 % SODIUM CHLORIDE 150ML 150 ML IV PRN (11:45)
[2016-07-18] MEDS ORDERED: INSULIN ASPART 300 UNITS/3 ML INSULN.PEN SQ SCH (12:00)
[2016-07-18 12:29] LABS: HEMATOCRIT 25.1 % (39.0-53.0); HEMOGLOBIN 8.3 g/dL (13.0-17.5); RED BLOOD COUNT 2.93 x10^6/uL (4.30-5.70); WHITE BLOOD COUNT 10.8 x10^3/uL (4.0-11.0)
[2016-07-18] MEDS: MIDAZOLAM PREMIX 100 ML IV PRN (13:42)
[2016-07-18] MEDS: ATORVASTATIN CALCIUM 40 MG TABLET. PO SCH (21:00)
[2016-07-18] MEDS ORDERED: DEXTROSE 70% IV SCH ×10 (22:00)
[2016-07-18] MEDS ORDERED: TOTAL PARENTERAL NUTRITION IV SCH ×10 (22:00)
[2016-07-18] MEDS ORDERED: AMINO ACIDS IV SCH ×10 (22:00)
[2016-07-18] MEDS ORDERED: [UNRECOGNIZED DRUG - OTHER] IV SCH ×10 (22:00)
[2016-07-19] VITALS (24 sets, daily range): BP systolic 89–167; BP diastolic 51–81
[2016-07-19] MEDS: FENTANYL STANDARD PCA 30 ML IV PRN ×2 (00:09→06:15)
[2016-07-19] MEDS: PANTOPRAZOLE SODIUM IV 80 MG in IV NORMAL SALINE 100ML 100 ML IV SCH ×2 (05:10→15:56)
[2016-07-19] MEDS: HYDROCORTISONE SOD SUCC/PF 100 MG/2 ML VIAL. IV SCH ×3 (05:50→22:19)
[2016-07-19 06:02] LABS: ALBUMIN 1.9 g/dL (3.4-5.0); ALBUMIN/GLOBULIN RATIO 0.6 (1.0-1.7); BASO % 0 % (0-3); CALCIUM 7.8 mg/dL (8.5-10.1); CREATININE 1.7 mg/dL (0.7-1.3); EOS % 0 % (0-3); HEMATOCRIT 22.3 % (39.0-53.0); HEMOGLOBIN 7.4 g/dL (13.0-17.5); LYMPH # 0.6 x10^3/uL (1.0-4.8); LYMPH % 6 % (24-48); MEAN CORPUSCULAR HEMOGLOBIN 28 pg (25-35); MEAN CORPUSCULAR HGB CONC 33 g/dL (31-37); MEAN CORPUSCULAR VOLUME 85 fL (79-100); MONO % 10 % (0-9); NEUT % 84 % (31-73); PLATELET COUNT 145 x10^3/uL (140-400); POTASSIUM 3.2 mmol/L (3.5-5.1); RED BLOOD COUNT 2.62 x10^6/uL (4.30-5.70); RED CELL DISTRIBUTION WIDTH 14.7 % (11.5-14.5); TOTAL BILIRUBIN 0.2 mg/dL (0.2-1.0); WHITE BLOOD COUNT 10.2 x10^3/uL (4.0-11.0)
[2016-07-19] MEDS: IPRATROPIUM BROMIDE 0.5 MG/2.5 ML NEBU. NEB SCH ×4 (07:39→20:30)
[2016-07-19] MEDS: MIDAZOLAM PREMIX 100 ML IV PRN (07:52)
[2016-07-19 08:08] LABS: PH ABG 7.42 (7.35-7.45)
[2016-07-19 08:09] LABS: FIO2 ABG 40; HCO3 ABG 20 mmol/L (21-28); PCO2 ABG 31 mmHg (35-46); PO2 ABG 94 mmHg (65-108); SAT O2 ABG 96 % (92-99)
--- NOTE | 2016-07-19 08:19 | RAD ---
Portable chest, 07/19/2016: History: Respiratory failure, pulmonary edema Comparison is made to yesterday's exam. The tip of the ET tube lies 9 cm above the herson. A Dobbhoff tube remains in place although its tip is not visible. Two right jugular central venous catheters remain in place extending to the level of the atriocaval junction. The heart size and pulmonary vascularity are normal. 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 Review of older radiographs from 2016 shows that this is a chronic process, probably predominantly due to scarring. No left-sided pleural fluid is evident. No new pulmonary abnormality is seen. IMPRESSION: No significant change since yesterday's study.
--- NOTE | 2016-07-19 08:31 | RAD ---
EXAM: Abdomen sonogram. HISTORY: Elevated liver function laboratory values. TECHNIQUE: Sonographic imaging of the abdomen was performed. COMPARISON: None. FINDINGS: The exam is limited due to patient inability, bowel gas and large body habitus. There is hepatic steatosis. The liver is mildly enlarged. No focal hepatic lesion is seen. The gallbladder is distended and contains sludge. There is no gallbladder wall thickening or pericholecystic fluid. The common bile duct is normal in caliber for patient age, measuring 5 mm. The right kidney is unremarkable. The pancreas, spleen and left kidney are obscured. There is atherosclerotic abdominal aorta. The inferior vena cava is patent. IMPRESSION: 1. Hepatomegaly and hepatic steatosis. 2. Distended gallbladder containing sludge. 3. Limited exam due to and immobility, bowel gas and body habitus. The pancreas, spleen and left kidney are obscured. 4. Abdominal aortic atherosclerosis.
[2016-07-19] MEDS: POTASSIUM CHLORIDE 20MEQ 50 ML IV SCH ×2 (09:04→11:09)
[2016-07-19] MEDS: CHLORHEXIDINE 0.12% 15 ML MOUTHWASH. MM SCH ×2 (09:07→22:20)
[2016-07-19] MEDS: MUPIROCIN 2 % NASAL OINTMENT 22GM TUBE. NS SCH ×2 (09:11→22:20)
--- NOTE | 2016-07-19 09:39 | PDOC ---
PULMONARY PROGRESS NOTES Subjective intubated, on vent ,sedated, off pressors Vitals Vital Signs Date Time Temp Pulse Resp B/P Pulse Ox O2 Delivery O2 Flow Rate FiO2 07/19/16 09:05 100 Ventilator 07/19/16 09:00 68 25 116/65 07/19/16 08:00 98.3 98.3 Comments ros discussed w rn, as mentioned as above other sys otherwise neg HEENT: Other (nc at orally intubated, nose clear, ) Lungs: Other (decrease bs) Cardiovascular: S1, S2 Abdomen: Soft, Non-tender, Other (no groin tenderness) Extremities: Other (trace edema) Skin: Warm Labs Laboratory Tests Test 07/17/16 12:15 07/17/16 18:52 07/17/16 20:47 07/18/16 01:00 Glucose (Fingerstick) 164mg/dL (70-99) 249mg/dL (70-99) 285mg/dL (70-99) White Blood Count 10.4x10^3/uL (4.0-11.0) Red Blood Count 2.46x10^6/uL (4.30-5.70) Hemoglobin 6.9g/dL (13.0-17.5) Hematocrit 21.2% (39.0-53.0) Mean Corpuscular Volume 86fL (79-100) Mean Corpuscular Hemoglobin 28pg (25-35) Mean Corpuscular Hemoglobin Concent 33g/dL (31-37) Red Cell Distribution Width 14.6% (11.5-14.5) Platelet Count 152x10^3/uL (140-400) Test 07/18/16 05:40 07/18/16 05:45 07/18/16 07:43 07/18/16 07:45 Heparin Anti-Xa Act, Unfractionated 0.22IU/mL (0.30-0.70) Sodium Level 142mmol/L (136-145) Potassium Level 3.3mmol/L (3.5-5.1) Chloride Level 109mmol/L (98-107) Carbon Dioxide Level 21mmol/L (21-32) Anion Gap 12 (6-14) Blood Urea Nitrogen 80mg/dL (8-26) Creatinine 2.0mg/dL (0.7-1.3) Estimated GFR (Cockcroft-Gault) 39.8 Glucose Level 447mg/dL (70-99) Calcium Level 7.6mg/dL (8.5-10.1) Phosphorus Level 4.4mg/dL (2.6-4.7) Magnesium Level 2.4mg/dL (1.8-2.4) Albumin 2.0g/dL (3.4-5.0) White Blood Count 9.6x10^3/uL (4.0-11.0) Red Blood Count 2.26x10^6/uL (4.30-5.70) Hemoglobin 6.4g/dL (13.0-17.5) Hematocrit 19.6% (39.0-53.0) Mean Corpuscular Volume 87fL (79-100) Mean Corpuscular Hemoglobin 29pg (25-35) Mean Corpuscular Hemoglobin Concent 33g/dL (31-37) Red Cell Distribution Width 14.5% (11.5-14.5) Platelet Count 146x10^3/uL (140-400) Neutrophils (%) (Auto) 82% (31-73) Lymphocytes (%) (Auto) 9% (24-48) Monocytes (%) (Auto) 8% (0-9) Eosinophils (%) (Auto) 0% (0-3) Basophils (%) (Auto) 0% (0-3) Neutrophils # (Auto) 7.9x10^3uL (1.8-7.7) Lymphocytes # (Auto) 0.9x10^3/uL (1.0-4.8) Monocytes # (Auto) 0.8x10^3/uL (0.0-1.1) Eosinophils # (Auto) 0.0x10^3/uL (0.0-0.7) Basophils # (Auto) 0.0x10^3/uL (0.0-0.2) O2 Saturation 97% (92-99) Arterial Blood pH 7.42 (7.35-7.45) Arterial Blood pCO2 at Patient Temp 36mmHg (35-46) Arterial Blood pO2 at Patient Temp 115mmHg (65-108) Arterial Blood HCO3 23mmol/L (21-28) Arterial Blood Base Excess -2mmol/L (-3-3) FiO2 40.0 Glucose (Fingerstick) 461mg/dL (70-99) Test 07/18/16 07:52 07/18/16 11:35 07/18/16 12:00 07/18/16 13:16 Glucose (Fingerstick) 438mg/dL (70-99) 398mg/dL (70-99) 393mg/dL (70-99) White Blood Count 10.8x10^3/uL (4.0-11.0) Red Blood Count 2.93x10^6/uL (4.30-5.70) Hemoglobin 8.3g/dL (13.0-17.5) Hematocrit 25.1% (39.0-53.0) Mean Corpuscular Volume 86fL (79-100) Mean Corpuscular Hemoglobin 28pg (25-35) Mean Corpuscular Hemoglobin Concent 33g/dL (31-37) Red Cell Distribution Width 15.0% (11.5-14.5) Platelet Count 162x10^3/uL (140-400) Test 07/18/16 14:23 07/18/16 15:37 07/18/16 18:10 07/18/16 19:25 Glucose (Fingerstick) 370mg/dL (70-99) 269mg/dL (70-99) 159mg/dL (70-99) 155mg/dL (70-99) Test 07/18/16 20:29 07/18/16 21:33 07/18/16 22:25 07/18/16 23:28 Glucose (Fingerstick) 178mg/dL (70-99) 114mg/dL (70-99) 127mg/dL (70-99) 92mg/dL (70-99) Test 07/19/16 00:36 07/19/16 01:33 07/19/16 02:32 07/19/16 03:33 Glucose (Fingerstick) 80mg/dL (70-99) 80mg/dL (70-99) 83mg/dL (70-99) 75mg/dL (70-99) Test 07/19/16 04:28 07/19/16 05:25 07/19/16 05:26 07/19/16 06:28 Glucose (Fingerstick) 98mg/dL (70-99) 118mg/dL (70-99) 86mg/dL (70-99) White Blood Count 10.2x10^3/uL (4.0-11.0) Red Blood Count 2.62x10^6/uL (4.30-5.70) Hemoglobin 7.4g/dL (13.0-17.5) Hematocrit 22.3% (39.0-53.0) Mean Corpuscular Volume 85fL (79-100) Mean Corpuscular Hemoglobin 28pg (25-35) Mean Corpuscular Hemoglobin Concent 33g/dL (31-37) Red Cell Distribution Width 14.7% (11.5-14.5) Platelet Count 145x10^3/uL (140-400) Neutrophils (%) (Auto) 84% (31-73) Lymphocytes (%) (Auto) 6% (24-48) Monocytes (%) (Auto) 10% (0-9) Eosinophils (%) (Auto) 0% (0-3) Basophils (%) (Auto) 0% (0-3) Neutrophils # (Auto) 8.5x10^3uL (1.8-7.7) Lymphocytes # (Auto) 0.6x10^3/uL (1.0-4.8) Monocytes # (Auto) 1.0x10^3/uL (0.0-1.1) Eosinophils # (Auto) 0.0x10^3/uL (0.0-0.7) Basophils # (Auto) 0.0x10^3/uL (0.0-0.2) Sodium Level 148mmol/L (136-145) Potassium Level 3.2mmol/L (3.5-5.1) Chloride Level 113mmol/L (98-107) Carbon Dioxide Level 25mmol/L (21-32) Anion Gap 10 (6-14) Blood Urea Nitrogen 76mg/dL (8-26) Creatinine 1.7mg/dL (0.7-1.3) Estimated GFR (Cockcroft-Gault) 48.0 BUN/Creatinine Ratio 45 (6-20) Glucose Level 128mg/dL (70-99) Calcium Level 7.8mg/dL (8.5-10.1) Magnesium Level 2.4mg/dL (1.8-2.4) Total Bilirubin 0.2mg/dL (0.2-1.0) Aspartate Amino Transf (AST/SGOT) 206U/L (15-37) Alanine Aminotransferase (ALT/SGPT) 475U/L (16-63) Alkaline Phosphatase 108U/L (46-116) Total Protein 5.0g/dL (6.4-8.2) Albumin 1.9g/dL (3.4-5.0) Albumin/Globulin Ratio 0.6 (1.0-1.7) Test 07/19/16 07:36 07/19/16 07:50 07/19/16 08:43 Glucose (Fingerstick) 120mg/dL (70-99) 111mg/dL (70-99) O2 Saturation 96% (92-99) Arterial Blood pH 7.42 (7.35-7.45) Arterial Blood pCO2 at Patient Temp 31mmHg (35-46) Arterial Blood pO2 at Patient Temp 94mmHg (65-108) Arterial Blood HCO3 20mmol/L (21-28) Arterial Blood Base Excess -4mmol/L (-3-3) FiO2 40 Laboratory Tests Test 07/18/16 11:35 07/18/16 12:00 07/18/16 13:16 07/18/16 14:23 Glucose (Fingerstick) 398mg/dL (70-99) 393mg/dL (70-99) 370mg/dL (70-99) White Blood Count 10.8x10^3/uL (4.0-11.0) Red Blood Count 2.93x10^6/uL (4.30-5.70) Hemoglobin 8.3g/dL (13.0-17.5) Hematocrit 25.1% (39.0-53.0) Mean Corpuscular Volume 86fL (79-100) Mean Corpuscular Hemoglobin 28pg (25-35) Mean Corpuscular Hemoglobin Concent 33g/dL (31-37) Red Cell Distribution Width 15.0% (11.5-14.5) Platelet Count 162x10^3/uL (140-400) Test 07/18/16 15:37 07/18/16 18:10 07/18/16 19:25 07/18/16 20:29 Glucose (Fingerstick) 269mg/dL (70-99) 159mg/dL (70-99) 155mg/dL (70-99) 178mg/dL (70-99) Test 07/18/16 21:33 07/18/16 22:25 07/18/16 23:28 07/19/16 00:36 Glucose (Fingerstick) 114mg/dL (70-99) 127mg/dL (70-99) 92mg/dL (70-99) 80mg/dL (70-99) Test 07/19/16 01:33 07/19/16 02:32 07/19/16 03:33 07/19/16 04:28 Glucose (Fingerstick) 80mg/dL (70-99) 83mg/dL (70-99) 75mg/dL (70-99) 98mg/dL (70-99) Test 07/19/16 05:25 07/19/16 05:26 07/19/16 06:28 07/19/16 07:36 White Blood Count 10.2x10^3/uL (4.0-11.0) Red Blood Count 2.62x10^6/uL (4.30-5.70) Hemoglobin 7.4g/dL (13.0-17.5) Hematocrit 22.3% (39.0-53.0) Mean Corpuscular Volume 85fL (79-100) Mean Corpuscular Hemoglobin 28pg (25-35) Mean Corpuscular Hemoglobin Concent 33g/dL (31-37) Red Cell Distribution Width 14.7% (11.5-14.5) Platelet Count 145x10^3/uL (140-400) Neutrophils (%) (Auto) 84% (31-73) Lymphocytes (%) (Auto) 6% (24-48) Monocytes (%) (Auto) 10% (0-9) Eosinophils (%) (Auto) 0% (0-3) Basophils (%) (Auto) 0% (0-3) Neutrophils # (Auto) 8.5x10^3uL (1.8-7.7) Lymphocytes # (Auto) 0.6x10^3/uL (1.0-4.8) Monocytes # (Auto) 1.0x10^3/uL (0.0-1.1) Eosinophils # (Auto) 0.0x10^3/uL (0.0-0.7) Basophils # (Auto) 0.0x10^3/uL (0.0-0.2) Sodium Level 148mmol/L (136-145) Potassium Level 3.2mmol/L (3.5-5.1) Chloride Level 113mmol/L (98-107) Carbon Dioxide Level 25mmol/L (21-32) Anion Gap 10 (6-14) Blood Urea Nitrogen 76mg/dL (8-26) Creatinine 1.7mg/dL (0.7-1.3) Estimated GFR (Cockcroft-Gault) 48.0 BUN/Creatinine Ratio 45 (6-20) Glucose Level 128mg/dL (70-99) Calcium Level 7.8mg/dL (8.5-10.1) Magnesium Level 2.4mg/dL (1.8-2.4) Total Bilirubin 0.2mg/dL (0.2-1.0) Aspartate Amino Transf (AST/SGOT) 206U/L (15-37) Alanine Aminotransferase (ALT/SGPT) 475U/L (16-63) Alkaline Phosphatase 108U/L (46-116) Total Protein 5.0g/dL (6.4-8.2) Albumin 1.9g/dL (3.4-5.0) Albumin/Globulin Ratio 0.6 (1.0-1.7) Glucose (Fingerstick) 118mg/dL (70-99) 86mg/dL (70-99) 120mg/dL (70-99) Test 07/19/16 07:50 07/19/16 08:43 O2 Saturation 96% (92-99) Arterial Blood pH 7.42 (7.35-7.45) Arterial Blood pCO2 at Patient Temp 31mmHg (35-46) Arterial Blood pO2 at Patient Temp 94mmHg (65-108) Arterial Blood HCO3 20mmol/L (21-28) Arterial Blood Base Excess -4mmol/L (-3-3) FiO2 40 Glucose (Fingerstick) 111mg/dL (70-99) Medications Active Scripts Medications Dose Route/Sig Days Date Category Advair 100-50 Diskus (Fluticasone/Salmeterol) 1 Each Disk.w.dev 1 Puff IH BID 06/21/16 Reported Spiriva Respimat (Tiotropium Russell) 4 Gm Mist.inhal 2.5 Gm IH DAILY 06/21/16 Reported Symbicort 160-4.5 Mcg Inhaler (Budesonide/Formoterol Fumarate) 10.2 Gm Hfa.aer.ad 2 Puff IH BID 06/21/16 Reported Atorvastatin Calcium 20 Mg Tablet 20 Mg PO HS 06/21/16 Reported Lisinopril-Hctz 10-12.5 Mg Tab (Lisinopril/Hydrochlorothiazide) 1 Each Tablet 1 Tab PO DAILY 06/21/16 Reported Isosorbide Mononitrate Er (Isosorbide Mononitrate) 120 Mg Tab.er.24h 120 Mg PO DAILY 06/21/16 Reported Levemir Flextouch (Insulin Detemir) 100 Unit/1 Ml Insuln.pen 20 Units SQ QHS 30 11/24/15 Rx Novolog Flexpen (Insulin Aspart) 100 Unit/1 Ml Insuln.pen 10 Units SQ TIDAC 30 11/24/15 Rx Novolin N (Nph, Human Insulin Isophane) 100 Unit/1 Ml Vial 0 SQ 11/18/15 Reported Promethazine-Codeine Syrup (Promethazine Hcl/Codeine) 118 Ml Syrup 5 Ml PO Q4-6HRS 11/18/15 Reported Diltiazem 24HR Cd (Diltiazem Hcl) 240 Mg Cap.er.24h 240 Mg PO DAILY 11/18/15 Reported NITROGLYCERIN SubLingual (Nitroglycerin) 0.4 Mg Tab.subl 0.4 Mg SL PRN Q5MIN PRN 11/18/15 Reported Atorvastatin Calcium 40 Mg Tablet 40 Mg PO HS 11/18/[address] reviewed, 1. Widespread multifocal bilateral segmental pulmonary embolism, with nonocclusive lobar embolism involving the right lower and middle lobes. 2. Diffuse tree-in-bud opacification suggestive of acute bronchiolitis. Findings are less confluence than on the prior examination, but now involve the lower lobes. 3. Right heart enlargement with straightening of the interventricular septum possibly due to pulmonary hypertension. Correlate clinically and consider echocardiography if warranted. 4. Short segment high-grade stricture and/or focal obliteration of the right upper lobe bronchus. No adjacent mass or evidence of extrinsic compression. This is stable. CXR 07/19 chronic RLL pleural thickening/ ET high Impression . 1. Acute respiratory failure secondary to angioedema, self extubated 07/14, reintubated 07/15, s/p cardiopulmonary arrest, Acute extensive PE, DVT, s/p TPA 2. Acute extensive PE with shock, DVT, s/p TPA, off pressors 2. Lisinopril induced angioedema. resolved 3. Chronic obstructive pulmonary disease. 4. Hypertension. 5. Coronary artery disease. s/p emergent cath.no sig disease 6. BASIM, improving 7. anemia,improved, off AC since last night Plan . 1. cont vent support, setting reviewed, review abg, will wean sedation and consider SBT once awake 2. Continue steroids, start taper 3. GI prophylaxis. 4. follow nephro rec 5. re-start Heparin protocol. follow Hb closely 6. consider enteral nutrition, wean off TPN 7. Atrovent only. 8. advance ET tube by 3 cm 9. prn iv fluid 10. prn prbc, discussed w rn, rt, pt is critically ill, cc time 25 min w/o overlap IVANA COX MD Jul 19, 2016 09:39
--- NOTE | 2016-07-19 09:44 | CONS ---
DATE OF CONSULTATION: 07/18/2016 Dr. Lizzie Green dictating a GI consultation for Dr. Serafin Weaver. I am covering for him today. REQUESTING PHYSICIAN: Dr. Tan. PRIMARY CARE PHYSICIAN: Dr. Elo Carlos. REASON FOR CONSULTATION: Anemia. HISTORY OF PRESENT ILLNESS: This is a 75-year-old gentleman who was admitted to [facility] on 07/12/2016 through the Emergency Room for facial and tongue swelling. He has had a complicated hospital course, which includes angioedema secondary to his ADAN inhibitor, self-extubation on 07/14/2016, status post PEA arrest secondary to multiple bilateral PEs noted on 07/15/2016, nonocclusive right leg thrombus on 07/15/2016, COPD as well as hypotensive shock and acute respiratory failure. His hemoglobin dropped on 07/17/2016 from 8.2 to 5.3. He was placed on a Protonix drip and has since received 3 units of blood. His most recent hemoglobin is 8.3. He has no known GI history, and per the nursing staff and my examination, there is no evidence of rectal bleeding or bleeding in his tubing. Currently, he is no longer on pressors. PAST MEDICAL HISTORY: Significant for: 1. Angioedema secondary to ADAN inhibitor. 2. PEA arrest. 3. Multiple bilateral PEs. 4. Nonocclusive right leg thrombus. 5. COPD. 6. Low TSH. 7. Diabetes. 8. Hyperkalemic renal failure. 9. Metabolic acidosis. 10. Dyslipidemia. 11. Hypotensive shock. 12. Acute respiratory failure. 13. Anemia. 14. Hypertension. MEDICATIONS: Current medications include: 1. Albuterol. 2. Atorvastatin. 3. Peridex. 4. Dextrose. 5. Benadryl. 6. Dopamine. 7. Hydralazine. 8. Solu-Cortef. 9. Insulin. 10. Atrovent. 11. Bactroban. 12. Sodium acetate/potassium acetate. 13. Scopolamine. ALLERGIES: No known drug allergies. REVIEW OF SYSTEMS: Unobtainable as the patient is currently intubated. PHYSICAL EXAMINATION: GENERAL: He is intubated and sedated. HEENT: The ET tube, Dobhoff tube. CARDIOVASCULAR: S1, S2. LUNGS: Have decreased breath sounds anteriorly. ABDOMEN: Has got normoactive bowel sounds, soft, nontender, nondistended. EXTREMITIES: Mild edema. NEUROLOGIC: He is sedated. LABORATORY DATA: White blood cell count of 10.8 with a current hemoglobin of 8.3, MCV 86, platelets are 162. His coags showed an INR of 1.2 on 07/13/2016. Chemistry shows low potassium at 33, LFTs were elevated on 07/17/2016 with an AST of 1105, an ALT of 786 and an alkaline phosphatase of 135 with a normal bilirubin. IMAGING STUDIES: No GI imaging. ASSESSMENT AND PLAN: 1. Anemia: There was an acute drop in his hemoglobin after heparin was started. This has since been held. An IVC filter has been placed. The patient was placed on the Protonix drip and has responded well to packed red blood cells. At this time, we will continue to monitor his hemoglobin, off of anticoagulation. 2. Elevated liver function tests: Likely secondary to shock liver. I will go ahead and check a Tylenol level as well as hepatitis serologies and continue to monitor. Thank you for allowing Dr. Weaver and I to participate in the care of this patient. LIZZIE GREEN MD DR: BURNO/taylor JOB#: [id number] / [id number] ELO Wooten APRN, CHUNMEI MD
[2016-07-19] MEDS ORDERED: HEPARIN for IV BOLUS 10,000 UNIT/10 ML VIAL. IV PRN ×2 (09:45)
[2016-07-19] MEDS ORDERED: HEPARIN for IV BOLUS 10,000 UNIT/10 ML VIAL. IV ONE (09:45)
[2016-07-19] MEDS: HEPARIN 25,000UTS/500ML PREMIX 500 ML IV PRN (10:17)
--- NOTE | 2016-07-19 10:24 | PDOC ---
Objective: Objective: No GI bleeding per RN. Vital Signs: Vital Signs Date Time Temp Pulse Resp B/P Pulse Ox O2 Delivery O2 Flow Rate FiO2 07/19/16 09:05 100 Ventilator 07/19/16 09:00 68 25 116/65 07/19/16 08:00 98.3 98.3 Labs: Laboratory Tests Test 07/18/16 11:35 07/18/16 12:00 07/18/16 13:16 07/18/16 14:23 Glucose (Fingerstick) 398mg/dL 393mg/dL 370mg/dL White Blood Count 10.8x10^3/uL Red Blood Count 2.93x10^6/uL Hemoglobin 8.3g/dL Hematocrit 25.1% Mean Corpuscular Volume 86fL Mean Corpuscular Hemoglobin 28pg Mean Corpuscular Hemoglobin Concent 33g/dL Red Cell Distribution Width 15.0% Platelet Count 162x10^3/uL Test 07/18/16 15:37 07/18/16 18:10 07/18/16 19:25 07/18/16 20:29 Glucose (Fingerstick) 269mg/dL 159mg/dL 155mg/dL 178mg/dL Test 07/18/16 21:33 07/18/16 22:25 07/18/16 23:28 07/19/16 00:36 Glucose (Fingerstick) 114mg/dL 127mg/dL 92mg/dL 80mg/dL Test 07/19/16 01:33 07/19/16 02:32 07/19/16 03:33 07/19/16 04:28 Glucose (Fingerstick) 80mg/dL 83mg/dL 75mg/dL 98mg/dL Test 07/19/16 05:25 07/19/16 05:26 07/19/16 06:28 07/19/16 07:36 White Blood Count 10.2x10^3/uL Red Blood Count 2.62x10^6/uL Hemoglobin 7.4g/dL Hematocrit 22.3% Mean Corpuscular Volume 85fL Mean Corpuscular Hemoglobin 28pg Mean Corpuscular Hemoglobin Concent 33g/dL Red Cell Distribution Width 14.7% Platelet Count 145x10^3/uL Neutrophils (%) (Auto) 84% Lymphocytes (%) (Auto) 6% Monocytes (%) (Auto) 10% Eosinophils (%) (Auto) 0% Basophils (%) (Auto) 0% Neutrophils # (Auto) 8.5x10^3uL Lymphocytes # (Auto) 0.6x10^3/uL Monocytes # (Auto) 1.0x10^3/uL Eosinophils # (Auto) 0.0x10^3/uL Basophils # (Auto) 0.0x10^3/uL Sodium Level 148mmol/L Potassium Level 3.2mmol/L Chloride Level 113mmol/L Carbon Dioxide Level 25mmol/L Anion Gap 10 Blood Urea Nitrogen 76mg/dL Creatinine 1.7mg/dL Estimated GFR (Cockcroft-Gault) 48.0 BUN/Creatinine Ratio 45 Glucose Level 128mg/dL Calcium Level 7.8mg/dL Magnesium Level 2.4mg/dL Total Bilirubin 0.2mg/dL Aspartate Amino Transf (AST/SGOT) 206U/L Alanine Aminotransferase (ALT/SGPT) 475U/L Alkaline Phosphatase 108U/L Total Protein 5.0g/dL Albumin 1.9g/dL Albumin/Globulin Ratio 0.6 Glucose (Fingerstick) 118mg/dL 86mg/dL 120mg/dL Test 07/19/16 07:50 07/19/16 08:43 07/19/16 09:48 O2 Saturation 96% Arterial Blood pH 7.42 Arterial Blood pCO2 at Patient Temp 31mmHg Arterial Blood pO2 at Patient Temp 94mmHg Arterial Blood HCO3 20mmol/L Arterial Blood Base Excess -4mmol/L FiO2 40 Glucose (Fingerstick) 111mg/dL 147mg/dL Imaging: CXR 07/19/16 IMPRESSION: No significant change since yesterday's study. Abd US 07/18/16 IMPRESSION: 1. Hepatomegaly and hepatic steatosis. 2. Distended gallbladder containing sludge. 3. Limited exam due to and immobility, bowel gas and body habitus. The pancreas , spleen and left kidney are obscured. 4. Abdominal aortic atherosclerosis. PE: GEN: intubated LUNGS: on vent HEART: RRR ABD:BS+ soft NEURO/PSYCH: sedated A/P: Acute resp failure (intubated), s/p arrest, s/p cardiac cath, PE and DVT s/p TPA Anemia -drop in Hgb w/ above problems -s/p transfusions, 8.3 to 7.4 today, no obvious GI bleeding -on PPI drip Elevated LFTs - improved -likely shock liver, Hep panel pending -- D/w Dr. Hill - to restart Heparin w/ PRN transfusions. Will review w/ Dr. Farfan. SANDOR SARMIENTO Jul 19, 2016 10:24
--- NOTE | 2016-07-19 10:25 | PDOC ---
PROGRESS NOTES Chief Complaint Chief Complaint Angioedema - angioedema, likely 2/2 to ACEI; self extubated 07/14/16 - resolved - s/p CP arrest (PEA) sec to Multiple bilateral PE (07/15) - Non-occlusive thrombus, R leg (07/15) - COPD exacerbation - Low TSH levels in a critically ill patient - DM2; insulin requiring - Oliguric Hyperkalemic renal failure - Metabolic acidosis s/p arrest - Dyslipidemia on statin - Hypotensive shock, resolved and off pressors - Acute respiratory failure - intubated again (07/15) secondary to code blue ( PEA # 2) History of Present Illness History of Present Illness Seen in ICU this AM. Patient Intubated and sedated. Currently off all pressors; BP 116/65. Gastroenterology determined no signs of GI bleed. Hgb 7.4 at this time. O2 Sat 100% on Vent: AC / / 550 Vf / 40% Fi02 / 5 PEEP. Discussed case with RN and Hard[employer] Floor Layer. Vitals Vitals Vital Signs Date Time Temp Pulse Resp B/P Pulse Ox O2 Delivery O2 Flow Rate FiO2 07/19/16 09:05 100 Ventilator 07/19/16 09:00 68 25 116/65 07/19/16 08:00 98.3 98.3 Physical Exam Physical Exam eyes- bilateral periorbital / subconjunctival edema General: Other (SEDATED) Heart: Regular rate, Normal S1, Normal S2, No murmurs, Gallops Lungs: Other (decrease bs) Abdomen: Normal bowel sounds, Soft, No tenderness, No hepatosplenomegaly, No masses Extremities: No clubbing, No cyanosis, No edema, Normal pulses, No tenderness/ swelling Skin: No rashes Labs LABS Laboratory Tests Test 07/18/16 11:35 07/18/16 12:00 07/18/16 13:16 07/18/16 14:23 Glucose (Fingerstick) 398mg/dL (70-99) 393mg/dL (70-99) 370mg/dL (70-99) White Blood Count 10.8x10^3/uL (4.0-11.0) Red Blood Count 2.93x10^6/uL (4.30-5.70) Hemoglobin 8.3g/dL (13.0-17.5) Hematocrit 25.1% (39.0-53.0) Mean Corpuscular Volume 86fL (79-100) Mean Corpuscular Hemoglobin 28pg (25-35) Mean Corpuscular Hemoglobin Concent 33g/dL (31-37) Red Cell Distribution Width 15.0% (11.5-14.5) Platelet Count 162x10^3/uL (140-400) Test 07/18/16 15:37 07/18/16 18:10 07/18/16 19:25 07/18/16 20:29 Glucose (Fingerstick) 269mg/dL (70-99) 159mg/dL (70-99) 155mg/dL (70-99) 178mg/dL (70-99) Test 07/18/16 21:33 07/18/16 22:25 07/18/16 23:28 07/19/16 00:36 Glucose (Fingerstick) 114mg/dL (70-99) 127mg/dL (70-99) 92mg/dL (70-99) 80mg/dL (70-99) Test 07/19/16 01:33 07/19/16 02:32 07/19/16 03:33 07/19/16 04:28 Glucose (Fingerstick) 80mg/dL (70-99) 83mg/dL (70-99) 75mg/dL (70-99) 98mg/dL (70-99) Test 07/19/16 05:25 07/19/16 05:26 07/19/16 06:28 07/19/16 07:36 White Blood Count 10.2x10^3/uL (4.0-11.0) Red Blood Count 2.62x10^6/uL (4.30-5.70) Hemoglobin 7.4g/dL (13.0-17.5) Hematocrit 22.3% (39.0-53.0) Mean Corpuscular Volume 85fL (79-100) Mean Corpuscular Hemoglobin 28pg (25-35) Mean Corpuscular Hemoglobin Concent 33g/dL (31-37) Red Cell Distribution Width 14.7% (11.5-14.5) Platelet Count 145x10^3/uL (140-400) Neutrophils (%) (Auto) 84% (31-73) Lymphocytes (%) (Auto) 6% (24-48) Monocytes (%) (Auto) 10% (0-9) Eosinophils (%) (Auto) 0% (0-3) Basophils (%) (Auto) 0% (0-3) Neutrophils # (Auto) 8.5x10^3uL (1.8-7.7) Lymphocytes # (Auto) 0.6x10^3/uL (1.0-4.8) Monocytes # (Auto) 1.0x10^3/uL (0.0-1.1) Eosinophils # (Auto) 0.0x10^3/uL (0.0-0.7) Basophils # (Auto) 0.0x10^3/uL (0.0-0.2) Sodium Level 148mmol/L (136-145) Potassium Level 3.2mmol/L (3.5-5.1) Chloride Level 113mmol/L (98-107) Carbon Dioxide Level 25mmol/L (21-32) Anion Gap 10 (6-14) Blood Urea Nitrogen 76mg/dL (8-26) Creatinine 1.7mg/dL (0.7-1.3) Estimated GFR (Cockcroft-Gault) 48.0 BUN/Creatinine Ratio 45 (6-20) Glucose Level 128mg/dL (70-99) Calcium Level 7.8mg/dL (8.5-10.1) Magnesium Level 2.4mg/dL (1.8-2.4) Total Bilirubin 0.2mg/dL (0.2-1.0) Aspartate Amino Transf (AST/SGOT) 206U/L (15-37) Alanine Aminotransferase (ALT/SGPT) 475U/L (16-63) Alkaline Phosphatase 108U/L (46-116) Total Protein 5.0g/dL (6.4-8.2) Albumin 1.9g/dL (3.4-5.0) Albumin/Globulin Ratio 0.6 (1.0-1.7) Glucose (Fingerstick) 118mg/dL (70-99) 86mg/dL (70-99) 120mg/dL (70-99) Test 07/19/16 07:50 07/19/16 08:43 07/19/16 09:48 O2 Saturation 96% (92-99) Arterial Blood pH 7.42 (7.35-7.45) Arterial Blood pCO2 at Patient Temp 31mmHg (35-46) Arterial Blood pO2 at Patient Temp 94mmHg (65-108) Arterial Blood HCO3 20mmol/L (21-28) Arterial Blood Base Excess -4mmol/L (-3-3) FiO2 40 Glucose (Fingerstick) 111mg/dL (70-99) 147mg/dL (70-99) Review of Systems Review of Systems Largely unobtainable due to sedation afebrile + bilateral periorbital / subconjunctival edema Assessment and Plan Assessmemt and Plan Problems Medical Problems: (1) COPD exacerbation Status: Acute (2) Hyperglycemia Status: Acute ASSESSMENT: - angioedema likely 2/2 ACEI; self extubated 07/14/16 - resolved - s/p CP arrest (PEA) sec to Multiple bilateral PE (07/15) - Non-occlusive thrombus, R leg (07/15) - COPD exacerbation - Low TSH levels in a critically ill patient - DM2; insulin requiring - Oliguric Hyperkalemic renal failure - Metabolic acidosis s/p arrest - Dyslipidemia on statin - Hypotensive shock, resolved and off pressors - Acute respiratory failure - intubated again (07/15) secondary to code blue ( PEA # 2) PLAN: - cont Levemir, Novolog, and high dose SSI - KCl 40 meq replacement for K+ 3.2 - patient remains critically ill; Full code for now - appreciate all subspecialists on the case - repeat daily labs; Hgb 7.4 - transfuse if less than 7 - cont PRN IVF - cont vent support per pulmonology recommendation; plan to wean sedation and possible spont breathing trial once awake - cont steroids, begin taper; cont Atrovent per pulm - discussed case with RN, pulmonology Total time 31 minutes Problems: Comment Review of Relevant I have reviewed the following items valerie (where applicable) has been applied. Labs Laboratory Tests Test 07/17/16 12:15 07/17/16 18:52 07/17/16 20:47 07/18/16 01:00 Glucose (Fingerstick) 164mg/dL (70-99) 249mg/dL (70-99) 285mg/dL (70-99) White Blood Count 10.4x10^3/uL (4.0-11.0) Red Blood Count 2.46x10^6/uL (4.30-5.70) Hemoglobin 6.9g/dL (13.0-17.5) Hematocrit 21.2% (39.0-53.0) Mean Corpuscular Volume 86fL (79-100) Mean Corpuscular Hemoglobin 28pg (25-35) Mean Corpuscular Hemoglobin Concent 33g/dL (31-37) Red Cell Distribution Width 14.6% (11.5-14.5) Platelet Count 152x10^3/uL (140-400) Test 07/18/16 05:40 07/18/16 05:45 07/18/16 07:43 07/18/16 07:45 Heparin Anti-Xa Act, Unfractionated 0.22IU/mL (0.30-0.70) Sodium Level 142mmol/L (136-145) Potassium Level 3.3mmol/L (3.5-5.1) Chloride Level 109mmol/L (98-107) Carbon Dioxide Level 21mmol/L (21-32) Anion Gap 12 (6-14) Blood Urea Nitrogen 80mg/dL (8-26) Creatinine 2.0mg/dL (0.7-1.3) Estimated GFR (Cockcroft-Gault) 39.8 Glucose Level 447mg/dL (70-99) Calcium Level 7.6mg/dL (8.5-10.1) Phosphorus Level 4.4mg/dL (2.6-4.7) Magnesium Level 2.4mg/dL (1.8-2.4) Albumin 2.0g/dL (3.4-5.0) White Blood Count 9.6x10^3/uL (4.0-11.0) Red Blood Count 2.26x10^6/uL (4.30-5.70) Hemoglobin 6.4g/dL (13.0-17.5) Hematocrit 19.6% (39.0-53.0) Mean Corpuscular Volume 87fL (79-100) Mean Corpuscular Hemoglobin 29pg (25-35) Mean Corpuscular Hemoglobin Concent 33g/dL (31-37) Red Cell Distribution Width 14.5% (11.5-14.5) Platelet Count 146x10^3/uL (140-400) Neutrophils (%) (Auto) 82% (31-73) Lymphocytes (%) (Auto) 9% (24-48) Monocytes (%) (Auto) 8% (0-9) Eosinophils (%) (Auto) 0% (0-3) Basophils (%) (Auto) 0% (0-3) Neutrophils # (Auto) 7.9x10^3uL (1.8-7.7) Lymphocytes # (Auto) 0.9x10^3/uL (1.0-4.8) Monocytes # (Auto) 0.8x10^3/uL (0.0-1.1) Eosinophils # (Auto) 0.0x10^3/uL (0.0-0.7) Basophils # (Auto) 0.0x10^3/uL (0.0-0.2) O2 Saturation 97% (92-99) Arterial Blood pH 7.42 (7.35-7.45) Arterial Blood pCO2 at Patient Temp 36mmHg (35-46) Arterial Blood pO2 at Patient Temp 115mmHg (65-108) Arterial Blood HCO3 23mmol/L (21-28) Arterial Blood Base Excess -2mmol/L (-3-3) FiO2 40.0 Glucose (Fingerstick) 461mg/dL (70-99) Test 07/18/16 07:52 07/18/16 11:35 07/18/16 12:00 07/18/16 13:16 Glucose (Fingerstick) 438mg/dL (70-99) 398mg/dL (70-99) 393mg/dL (70-99) White Blood Count 10.8x10^3/uL (4.0-11.0) Red Blood Count 2.93x10^6/uL (4.30-5.70) Hemoglobin 8.3g/dL (13.0-17.5) Hematocrit 25.1% (39.0-53.0) Mean Corpuscular Volume 86fL (79-100) Mean Corpuscular Hemoglobin 28pg (25-35) Mean Corpuscular Hemoglobin Concent 33g/dL (31-37) Red Cell Distribution Width 15.0% (11.5-14.5) Platelet Count 162x10^3/uL (140-400) Test 07/18/16 14:23 07/18/16 15:37 07/18/16 18:10 07/18/16 19:25 Glucose (Fingerstick) 370mg/dL (70-99) 269mg/dL (70-99) 159mg/dL (70-99) 155mg/dL (70-99) Test 07/18/16 20:29 07/18/16 21:33 07/18/16 22:25 07/18/16 23:28 Glucose (Fingerstick) 178mg/dL (70-99) 114mg/dL (70-99) 127mg/dL (70-99) 92mg/dL (70-99) Test 07/19/16 00:36 07/19/16 01:33 07/19/16 02:32 07/19/16 03:33 Glucose (Fingerstick) 80mg/dL (70-99) 80mg/dL (70-99) 83mg/dL (70-99) 75mg/dL (70-99) Test 07/19/16 04:28 07/19/16 05:25 07/19/16 05:26 07/19/16 06:28 Glucose (Fingerstick) 98mg/dL (70-99) 118mg/dL (70-99) 86mg/dL (70-99) White Blood Count 10.2x10^3/uL (4.0-11.0) Red Blood Count 2.62x10^6/uL (4.30-5.70) Hemoglobin 7.4g/dL (13.0-17.5) Hematocrit 22.3% (39.0-53.0) Mean Corpuscular Volume 85fL (79-100) Mean Corpuscular Hemoglobin 28pg (25-35) Mean Corpuscular Hemoglobin Concent 33g/dL (31-37) Red Cell Distribution Width 14.7% (11.5-14.5) Platelet Count 145x10^3/uL (140-400) Neutrophils (%) (Auto) 84% (31-73) Lymphocytes (%) (Auto) 6% (24-48) Monocytes (%) (Auto) 10% (0-9) Eosinophils (%) (Auto) 0% (0-3) Basophils (%) (Auto) 0% (0-3) Neutrophils # (Auto) 8.5x10^3uL (1.8-7.7) Lymphocytes # (Auto) 0.6x10^3/uL (1.0-4.8) Monocytes # (Auto) 1.0x10^3/uL (0.0-1.1) Eosinophils # (Auto) 0.0x10^3/uL (0.0-0.7) Basophils # (Auto) 0.0x10^3/uL (0.0-0.2) Sodium Level 148mmol/L (136-145) Potassium Level 3.2mmol/L (3.5-5.1) Chloride Level 113mmol/L (98-107) Carbon Dioxide Level 25mmol/L (21-32) Anion Gap 10 (6-14) Blood Urea Nitrogen 76mg/dL (8-26) Creatinine 1.7mg/dL (0.7-1.3) Estimated GFR (Cockcroft-Gault) 48.0 BUN/Creatinine Ratio 45 (6-20) Glucose Level 128mg/dL (70-99) Calcium Level 7.8mg/dL (8.5-10.1) Magnesium Level 2.4mg/dL (1.8-2.4) Total Bilirubin 0.2mg/dL (0.2-1.0) Aspartate Amino Transf (AST/SGOT) 206U/L (15-37) Alanine Aminotransferase (ALT/SGPT) 475U/L (16-63) Alkaline Phosphatase 108U/L (46-116) Total Protein 5.0g/dL (6.4-8.2) Albumin 1.9g/dL (3.4-5.0) Albumin/Globulin Ratio 0.6 (1.0-1.7) Test 07/19/16 07:36 07/19/16 07:50 07/19/16 08:43 07/19/16 09:48 Glucose (Fingerstick) 120mg/dL (70-99) 111mg/dL (70-99) 147mg/dL (70-99) O2 Saturation 96% (92-99) Arterial Blood pH 7.42 (7.35-7.45) Arterial Blood pCO2 at Patient Temp 31mmHg (35-46) Arterial Blood pO2 at Patient Temp 94mmHg (65-108) Arterial Blood HCO3 20mmol/L (21-28) Arterial Blood Base Excess -4mmol/L (-3-3) FiO2 40 Laboratory Tests Test 07/18/16 11:35 07/18/16 12:00 07/18/16 13:16 07/18/16 14:23 Glucose (Fingerstick) 398mg/dL (70-99) 393mg/dL (70-99) 370mg/dL (70-99) White Blood Count 10.8x10^3/uL (4.0-11.0) Red Blood Count 2.93x10^6/uL (4.30-5.70) Hemoglobin 8.3g/dL (13.0-17.5) Hematocrit 25.1% (39.0-53.0) Mean Corpuscular Volume 86fL (79-100) Mean Corpuscular Hemoglobin 28pg (25-35) Mean Corpuscular Hemoglobin Concent 33g/dL (31-37) Red Cell Distribution Width 15.0% (11.5-14.5) Platelet Count 162x10^3/uL (140-400) Test 07/18/16 15:37 07/18/16 18:10 07/18/16 19:25 07/18/16 20:29 Glucose (Fingerstick) 269mg/dL (70-99) 159mg/dL (70-99) 155mg/dL (70-99) 178mg/dL (70-99) Test 07/18/16 21:33 07/18/16 22:25 07/18/16 23:28 07/19/16 00:36 Glucose (Fingerstick) 114mg/dL (70-99) 127mg/dL (70-99) 92mg/dL (70-99) 80mg/dL (70-99) Test 07/19/16 01:33 07/19/16 02:32 07/19/16 03:33 07/19/16 04:28 Glucose (Fingerstick) 80mg/dL (70-99) 83mg/dL (70-99) 75mg/dL (70-99) 98mg/dL (70-99) Test 07/19/16 05:25 07/19/16 05:26 07/19/16 06:28 07/19/16 07:36 White Blood Count 10.2x10^3/uL (4.0-11.0) Red Blood Count 2.62x10^6/uL (4.30-5.70) Hemoglobin 7.4g/dL (13.0-17.5) Hematocrit 22.3% (39.0-53.0) Mean Corpuscular Volume 85fL (79-100) Mean Corpuscular Hemoglobin 28pg (25-35) Mean Corpuscular Hemoglobin Concent 33g/dL (31-37) Red Cell Distribution Width 14.7% (11.5-14.5) Platelet Count 145x10^3/uL (140-400) Neutrophils (%) (Auto) 84% (31-73) Lymphocytes (%) (Auto) 6% (24-48) Monocytes (%) (Auto) 10% (0-9) Eosinophils (%) (Auto) 0% (0-3) Basophils (%) (Auto) 0% (0-3) Neutrophils # (Auto) 8.5x10^3uL (1.8-7.7) Lymphocytes # (Auto) 0.6x10^3/uL (1.0-4.8) Monocytes # (Auto) 1.0x10^3/uL (0.0-1.1) Eosinophils # (Auto) 0.0x10^3/uL (0.0-0.7) Basophils # (Auto) 0.0x10^3/uL (0.0-0.2) Sodium Level 148mmol/L (136-145) Potassium Level 3.2mmol/L (3.5-5.1) Chloride Level 113mmol/L (98-107) Carbon Dioxide Level 25mmol/L (21-32) Anion Gap 10 (6-14) Blood Urea Nitrogen 76mg/dL (8-26) Creatinine 1.7mg/dL (0.7-1.3) Estimated GFR (Cockcroft-Gault) 48.0 BUN/Creatinine Ratio 45 (6-20) Glucose Level 128mg/dL (70-99) Calcium Level 7.8mg/dL (8.5-10.1) Magnesium Level 2.4mg/dL (1.8-2.4) Total Bilirubin 0.2mg/dL (0.2-1.0) Aspartate Amino Transf (AST/SGOT) 206U/L (15-37) Alanine Aminotransferase (ALT/SGPT) 475U/L (16-63) Alkaline Phosphatase 108U/L (46-116) Total Protein 5.0g/dL (6.4-8.2) Albumin 1.9g/dL (3.4-5.0) Albumin/Globulin Ratio 0.6 (1.0-1.7) Glucose (Fingerstick) 118mg/dL (70-99) 86mg/dL (70-99) 120mg/dL (70-99) Test 07/19/16 07:50 07/19/16 08:43 07/19/16 09:48 O2 Saturation 96% (92-99) Arterial Blood pH 7.42 (7.35-7.45) Arterial Blood pCO2 at Patient Temp 31mmHg (35-46) Arterial Blood pO2 at Patient Temp 94mmHg (65-108) Arterial Blood HCO3 20mmol/L (21-28) Arterial Blood Base Excess -4mmol/L (-3-3) FiO2 40 Glucose (Fingerstick) 111mg/dL (70-99) 147mg/dL (70-99) Microbiology 07/15/16 Blood Culture - Preliminary, Resulted NO GROWTH AFTER 3 DAYS 07/14/16 Urine Culture - Final, Complete 07/14/16 Urine Culture Result 1 (MARÍA) - Final, Complete 07/14/16 Urine Culture Result 2 (MARÍA) - Final, Complete 07/14/16 Antimicrobic Susceptibility - Final, Complete Medications Current Medications Albuterol/ Ipratropium (Duoneb) 6 ml 1X ONCE NEB Last administered on 12:34; Start 07/12/16 at 12:30; Stop 07/12/16 at 12:31; Status DC Prednisone 60 mg 60 mg 1X ONCE PO Last administered on 07/12/16t 12:40; Start 07/12/16 at 12:30; Stop 07/12/16 at 12:31; Status DC Sodium Chloride (Iv Sodium Chloride 0.9% 1000ml Bag) 1,000 ml @ 1,000 mls/hr 1X ONCE IV Last administered on 07/12/16 13:12; Start 07/12/16 at 13:15; Stop 07/12/16 at 14:14; Status DC Insulin Human Regular (Novolin R Vial) 10 unit 1X ONCE IV Last administered on 07/12/16 13:16; Start 07/12/16 at 13:15; Stop 07/12/16 at 13:16; Status DC Diphenhydramine HCl (Benadryl) 50 mg STK-MED ONCE .ROUTE ; Start 07/12/16 at 14: 55; Stop 07/12/16 at 14:56; Status DC Diphenhydramine HCl (Benadryl) 50 mg 1X ONCE IVP Last administered on 15:15; Start 07/12/16 at 15:15; Stop 07/12/16 at 15:16; Status DC Atorvastatin Calcium (Lipitor) 40 mg HS PO Last administered on 07/17/16 20:50 ; Start 07/12/16 at 21:00 Diltiazem HCl (Cardizem 24hr Cd) 240 mg DAILY PO ; Start 07/12/16 at 16:30; Stop 07/13/16 at 17:18; Status DC Insulin Aspart (Novolog) 10 units TIDAC SQ ; Start 07/12/16 at 16:30; Stop 07/12 at 16:30; Status DC Insulin Detemir (Levemir) 20 units QHS SQ ; Start 07/12/16 at 21:00; Stop at 21:00; Status DC Promethazine HCl/ Codeine (Phenergan With Codeine) 5 ml QID PO ; Start 07/12/16 at 17:00; Stop 07/13/16 at 17:18; Status DC Non-Formulary Medication 2 puff BID IH ; Start 07/12/16 at 21:00; Status UNV Non-Formulary Medication 2.5 gm DAILY IH ; Start 07/13/16 at 09:00; Status UNV Budesonide (Pulmicort) 0.5 mg RTBID NEB Last administered on 07/13/16 07:30; Start 07/12/16 at 20:00; Stop 07/13/16 at 11:27; Status DC Albuterol/ Ipratropium (Duoneb) 3 ml RTQID NEB Last administered on 07/16/16 07:47; Start 07/12/16 at 20:00; Stop 07/16/16 at 08:38; Status DC Methylprednisolone Sodium Succinate (Solu-Medrol 40mg Vial) 60 mg 1X ONCE IV Last administered on 07/12/16 16:06; Start 07/12/16 at 16:30; Stop 07/12/16 at 16:31; Status DC Methylprednisolone Sodium Succinate (Solu-Medrol 40mg Vial) 60 mg DAILY IV ; Start 07/13/16 at 09:00; Stop 07/13/16 at 09:00; Status DC Pantoprazole Sodium (Protonix Vial) 40 mg DAILY IVP Last administered on 08:43; Start 07/13/16 at 09:00; Stop 07/17/16 at 20:37; Status DC Diphenhydramine HCl 25 mg 25 mg PRN Q6HRS PRN IVP ANAPHYLAXIS Last administered on 07/12/16 16:06; Start 07/12/16 at 16:00 Sodium Chloride (Iv Sodium Chloride 0.9% 1000ml Bag) 1,000 ml @ 150 mls/hr Q6H40M IV Last administered on 07/14/16 01:21; Start 07/12/16 at 16:30; Stop 07/14/16 at 09:31; Status DC Albuterol/ Ipratropium (Duoneb) 3 ml QID NEB ; Start 07/12/16 at 17:00; Status UNV Albuterol Sulfate (Ventolin Neb Soln) 2.5 mg PRN Q2HR PRN NEB SHORTNESS OF BREATH Last administered on 07/15/16 04:15; Start 07/12/16 at 16:00 Insulin Aspart (Novolog) 0-9 UNITS QID SQ Last administered on 07/14/16 08:37 ; Start 07/12/16 at 17:00; Stop 07/14/16 at 09:31; Status DC Dextrose 12.5 gm PRN Q15MIN PRN IV SEE COMMENTS; Start 07/12/16 at 16:00; Stop 07/15/16 at 12:46; Status DC Insulin Detemir (Levemir) 15 units QHS SQ ; Start 07/12/16 at 21:00; Stop at 21:00; Status DC Enoxaparin Sodium (Lovenox 40mg Syringe) 40 mg DAILY SQ Last administered on 08:54; Start 07/12/16 at 16:30; Stop 07/15/16 at 14:28; Status DC Insulin Detemir (Levemir) 20 units QHS SQ Last administered on 07/12/16 23:49 ; Start 07/12/16 at 21:00; Stop 07/13/16 at 15:18; Status DC Succinylcholine Chloride 200 mg 200 mg STK-MED ONCE .ROUTE ; Start 07/12/16 at 17:46; Stop 07/12/16 at 17:47; Status DC Propofol (Diprivan) 100 ml @ As Directed STK-MED ONCE IV ; Start 07/12/16 at 17 :46; Stop 07/12/16 at 17:47; Status DC Lidocaine HCl 100 mg STK-MED ONCE .ROUTE ; Start 07/12/16 at 18:02; Stop at 18:03; Status DC Ketamine HCl 500 mg 1X ONCE IV ; Start 07/12/16 at 18:30; Stop 07/12/16 at 18: 31; Status DC Midazolam HCl (Versed) 5 mg STK-MED ONCE .ROUTE ; Start 07/12/16 at 18:14; Stop 07/12/16 at 18:15; Status DC Midazolam HCl (Versed) 2 mg 1X ONCE IV ; Start 07/12/16 at 18:30; Stop at 18:31; Status DC Glycopyrrolate (Robinul) 1 mg 1X ONCE IV ; Start 07/12/16 at 18:30; Stop at 18:31; Status DC Oxymetazoline HCl (Afrin) 2 spray 1X ONCE NS ; Start 07/12/16 at 18:30; Stop at 18:31; Status DC Lidocaine HCl 30 ml STK-MED ONCE .ROUTE ; Start 07/12/16 at 18:19; Stop at 18:20; Status DC Vecuronium Holloway 6 mg 6 mg PRN Q4HRS PRN IV ANXIETY / AGITATION Last administered on 07/12/16 19:55; Start 07/12/16 at 19:00; Stop 07/15/16 at 07:58 ; Status DC Propofol (Diprivan) 100 ml @ 0 mls/hr CONT PRN IV SEE I/O RECORD Last administered on 07/14/16 13:42; Start 07/12/16 at 19:00; Stop 07/15/16 at 07:58 ; Status DC Insulin Aspart 10 units 10 units 1X ONCE SQ Last administered on 07/12/16 19: 41; Start 07/12/16 at 19:45; Stop 07/12/16 at 19:46; Status DC Vecuronium Holloway 100 mg/ Dextrose 100 ml @ 0 mls/hr CONT PRN IV SEE I/O RECORD Last administered on 07/13/16 20:48; Start 07/12/16 at 21:00; Stop 07/14 at 09:31; Status DC Fentanyl Citrate (Fentanyl 600 Mcg/30 ml CHEMICAL RADIATION TECHNICIAN) 30 ml @ 0 mls/hr CONT PRN IV PROTOCOL Last administered on 07/14/16 09:33; Start 07/12/16 at 22:00; Stop at 07:58; Status DC Chlorhexidine Gluconate (Peridex) 15 ml BID MM Last administered on 07/19/16 09:07; Start 07/13/16 at 09:00 Methylprednisolone Sodium Succinate (Solu-Medrol 125mg Vial) 125 mg BID IV Last administered on 07/14/16 21:02; Start 07/13/16 at 09:00; Stop 07/15/16 at 07:58; Status DC Rocuronium Holloway (Zemuron) 50 mg STK-MED ONCE .ROUTE ; Start 07/12/16 at 15:00 ; Stop 07/13/16 at 08:54; Status DC Glycopyrrolate (Robinul) 1 mg STK-MED ONCE .ROUTE ; Start 07/12/16 at 15:00; Stop 07/13/16 at 08:54; Status DC Lidocaine HCl 30 ml STK-MED ONCE .ROUTE ; Start 07/12/16 at 18:00; Stop at 09:05; Status DC Midazolam HCl (Versed) 5 mg STK-MED ONCE .ROUTE ; Start 07/12/16 at 18:00; Stop 07/13/16 at 09:05; Status DC Propofol (Diprivan) 1,000 mg STK-MED ONCE IV ; Start 07/12/16 at 18:00; Stop at 09:05; Status DC Succinylcholine Chloride (Anectine) 200 mg STK-MED ONCE .ROUTE ; Start 07/12/16 at 18:00; Stop 07/13/16 at 09:05; Status DC Multi-Ingred Cream/Lotion/Oil/ Oint (Artificial Tears Eye Oint) 1 margie PRN Q1HR PRN OU DRY EYE Last administered on 07/13/16 15:45; Start 07/13/16 at 11:00 Ketamine HCl 500 mg STK-MED ONCE .ROUTE ; Start 07/12/16 at 18:30; Stop at 12:05; Status DC Insulin Aspart (Novolog) 10 units 1X STAT SQ Last administered on 07/13/16 12 :36; Start 07/13/16 at 12:17; Stop 07/13/16 at 12:20; Status DC Insulin Aspart (Novolog) 10 units 1X ONCE SQ Last administered on 07/13/16 14 :31; Start 07/13/16 at 14:30; Stop 07/13/16 at 14:31; Status DC Insulin Detemir (Levemir) 40 units QHS SQ Last administered on 07/13/16 20:50 ; Start 07/13/16 at 21:00; Stop 07/14/16 at 09:31; Status DC Benzocaine (Hurricaine One) 1 spray STK-MED ONCE .ROUTE ; Start 07/12/16 at 12: 00; Stop 07/13/16 at 16:00; Status DC Lidocaine HCl 5 margie 5 margie STK-MED ONCE TP ; Start 07/12/16 at 12:00; Stop at 16:00; Status DC Insulin Human Regular/Sodium Chloride (Novolin R Vial/ Iv Normal Saline 150ml) 151.5 ml @ 0 mls/hr CONT PRN IV SEE I/O RECORD Last administered on 07/14/16 10:01; Start 07/14/16 at 09:30; Stop 07/15/16 at 07:58; Status DC Info 1 each 1 each PRN DAILY PRN MC SEE COMMENTS Last administered on 08:27; Start 07/14/16 at 09:30 Magnesium Sulfate/ Dextrose 50 ml @ 25 mls/hr PRN DAILY PRN IV for Mag < 1.7 on am labs; Start 07/14/16 at 11:15; Stop 07/15/16 at 07:58; Status DC Sodium Chloride 500 ml @ 500 mls/hr QID PRN IV UO< 30cc/hr over previous 6hrs ; Start 07/14/16 at 11:15; Stop 07/14/16 at 11:26; Status DC Sodium Chloride 500 ml @ 500 mls/hr PRN QID PRN IV UO< 30cc/hr over previous 6hrs Last administered on 07/16/16 10:00; Start 07/14/16 at 11:26 Ceftriaxone Sodium 1 gm/ Sodium Chloride 50 ml @ 100 mls/hr Q24H IV Last administered on 07/18/16 11:32; Start 07/14/16 at 12:00; Stop 07/20/16 at 12:29 Sodium Chloride/ Magnesium Sulfate/ Calcium Gluconate/ Multivitamins/ Chromium/ Copper/ Manganese/Seleni/ Zn/Total Parenteral Nutrition/Amino Acids/Dextrose ( Sodium Chloride/ Infuvite Adult/ Multitrace-5 Conc/ Tpn - Tpn Fluid/ Trophamine / Dextrose 70%-Water Iv Soln) 1,512 ml @ 63 mls/hr TPN CONT IV Last administered on 07/14/16 22:29; Start 07/14/16 at 22:00; Stop 07/15/16 at 21:59 ; Status DC Hydralazine HCl (Apresoline) 10 mg PRN Q4HRS PRN IVP ELEVATED BP, SEE COMMENTS Last administered on 07/18/16 10:07; Start 07/14/16 at 22:30 Methylprednisolone Sodium Succinate (Solu-Medrol 125mg Vial) 125 mg DAILY IV Last administered on 07/15/16 08:55; Start 07/15/16 at 09:00; Stop 07/16/16 at 08:35; Status DC Insulin Aspart (Novolog) 0-9 UNITS TIDWMEALS SQ Last administered on 07/15/16 16:16; Start 07/15/16 at 08:00; Stop 07/16/16 at 07:16; Status DC Dextrose 12.5 gm PRN Q15MIN PRN IV SEE COMMENTS; Start 07/15/16 at 08:00 Insulin Detemir (Levemir) 20 units QHS SQ Last administered on 07/15/16 21:48 ; Start 07/15/16 at 21:00; Stop 07/16/16 at 07:16; Status DC Insulin Aspart (Novolog) 10 units TIDAC SQ ; Start 07/15/16 at 11:30; Stop 07/16 at 07:16; Status DC Sodium Polystyrene Sulfonate (Kayexalate) 30 gm 1X ONCE PO ; Start 07/15/16 at 08:00; Stop 07/15/16 at 08:08; Status DC Hydrochlorothiazide (Microzide) 12.5 mg DAILY PO ; Start 07/15/16 at 09:00; Stop 07/16/16 at 07:39; Status DC Isosorbide Mononitrate (Imdur) 120 mg DAILY PO ; Start 07/15/16 at 09:00; Stop 07/15/16 at 09:00; Status DC Diltiazem HCl (Cardizem 24hr Cd) 240 mg DAILY PO ; Start 07/15/16 at 09:00; Stop 07/16/16 at 07:39; Status DC Guaifenesin (Mucinex) 600 mg BID PO ; Start 07/15/16 at 09:00; Stop 07/16/16 at 07:39; Status DC Mupirocin (Bactroban) 1 margie BID NS Last administered on 07/19/16 09:11; Start 07/15/16 at 09:00 Isosorbide Mononitrate (Imdur) 120 mg DAILY PO ; Start 07/15/16 at 09:00; Stop 07/16/16 at 07:39; Status DC Sodium Bicarbonate 50 meq 1X ONCE IV Last administered on 07/15/16 15:22; Start 07/15/16 at 10:45; Stop 07/15/16 at 10:46; Status DC Sodium Bicarbonate 50 meq 50 meq STK-MED ONCE .ROUTE ; Start 07/15/16 at 10:34; Stop 07/15/16 at 10:35; Status DC Dopamine HCl/ Dextrose 250 ml @ As Directed STK-MED ONCE IV ; Start 07/15/16 at 10:37; Stop 07/15/16 at 10:38; Status DC Midazolam HCl (Versed) 5 mg STK-MED ONCE .ROUTE ; Start 07/15/16 at 10:41; Stop 07/15/16 at 10:42; Status DC Iohexol 100 ml 100 ml STK-MED ONCE .ROUTE ; Start 07/15/16 at 10:45; Stop at 10:46; Status DC Heparin Sodium/ Sodium Chloride 1,500 ml @ As Directed STK-MED ONCE .ROUTE ; Start 07/15/16 at 10:45; Stop 07/15/16 at 10:46; Status DC Lidocaine HCl 20 ml 20 ml STK-MED ONCE .ROUTE ; Start 07/15/16 at 10:45; Stop at 10:46; Status DC Dopamine HCl/ Dextrose 250 ml @ 16.255 mls/ hr CONT PRN IV SEE I/O RECORD Last administered on 07/16/16 23:10; Start 07/15/16 at 11:00 Sodium Chloride 1,000 ml @ 1,000 mls/hr 1X ONCE IV Last administered on 11:00; Start 07/15/16 at 11:00; Stop 07/15/16 at 11:59; Status DC Norepinephrine Bitartrate/Sodium Chloride (Levophed Vial/ Iv Sodium Chloride 0.9 % 250ml) 258 ml @ 0 mls/hr CONT PRN IV SEE I/O RECORD Last administered on 07/17 00:51; Start 07/15/16 at 11:00 Midazolam HCl (Versed) 5 mg STK-MED ONCE .ROUTE ; Start 07/15/16 at 10:54; Stop 07/15/16 at 10:55; Status DC Fentanyl Citrate (Fentanyl 2ml Vial) 100 mcg STK-MED ONCE .ROUTE ; Start at 11:02; Stop 07/15/16 at 11:03; Status DC Vecuronium Holloway 10 mg 10 mg STK-MED ONCE IV ; Start 07/15/16 at 11:03; Stop 07/15/16 at 11:04; Status DC Midazolam HCl (Versed 100mg/ 100ml Premix) 100 ml @ As Directed STK-MED ONCE IV ; Start 07/15/16 at 11:03; Stop 07/15/16 at 11:04; Status DC Iohexol (Omnipaque 300 Mg/ml) 112 ml 1X ONCE IART Last administered on 11:56; Start 07/15/16 at 12:00; Stop 07/15/16 at 12:01; Status DC Lidocaine HCl 10 ml 1X ONCE IJ Last administered on 07/15/16 11:57; Start at 12:00; Stop 07/15/16 at 12:01; Status DC Heparin Sodium/ Sodium Chloride 1000 unit 1,000 unit 1X ONCE IART ; Start 07/15 at 12:00; Stop 07/15/16 at 12:01; Status DC Sodium Chloride/ Magnesium Sulfate/ Calcium Gluconate/ Multivitamins/ Chromium/ Copper/ Manganese/Seleni/ Zn/Total Parenteral Nutrition/Amino Acids/Dextrose ( Sodium Chloride/ Infuvite Adult/ Multitrace-5 Conc/ Tpn - Tpn Fluid/ Trophamine / Dextrose 70%-Water Iv Soln) 1,512 ml @ 63 mls/hr TPN CONT IV Last administered on 07/15/16 21:27; Start 07/15/16 at 22:00; Stop 07/16/16 at 21:59 ; Status DC Iohexol (Omnipaque 300 Mg/ml) 75 ml 1X ONCE IV Last administered on 07/15/16 13:43; Start 07/15/16 at 13:15; Stop 07/15/16 at 13:16; Status DC Info (Do NOT chart on this entry -- for MONITORING) 1 each PRN DAILY PRN MC SEE COMMENTS; Start 07/15/16 at 13:15; Stop 07/17/16 at 13:14; Status DC Heparin Sodium (Porcine) 7000 unit 7,000 unit 1X ONCE IV Last administered on 07/15/16 15:27; Start 07/15/16 at 14:45; Stop 07/15/16 at 14:46; Status DC Heparin Sodium/ Dextrose 500 ml @ 0 mls/hr CONT PRN IV SEE I/O RECORD Last administered on 07/17/16 18:41; Start 07/15/16 at 14:30; Stop 07/18/16 at 10:21 ; Status DC Heparin Sodium (Porcine) 2,600 unit PRN Q6HRS PRN IV FOR UFH LEVEL LESS THAN 0.2; Start 07/15/16 at 14:30; Stop 07/18/16 at 10:21; Status DC Heparin Sodium (Porcine) 1,300 unit PRN Q6HRS PRN IV FOR UFH LEVEL 0.2 - 0.29; Start 07/15/16 at 14:30; Stop 07/18/16 at 10:21; Status DC Warfarin Sodium (Coumadin Per Pharmacy) 1 each PRN DAILY PRN MC PER PROTOCOL; Start 07/15/16 at 14:30; Stop 07/15/16 at 14:30; Status DC Sodium Bicarbonate 50 meq 50 meq 1X ONCE IV Last administered on 07/15/16 16: 30; Start 07/15/16 at 16:30; Stop 07/15/16 at 16:34; Status DC Alteplase, Recombinant (Activase) 100 ml @ 50 mls/hr 1X ONCE IV Last administered on 07/15/16 17:30; Start 07/15/16 at 17:30; Stop 07/15/16 at 19:29 ; Status DC Fentanyl Citrate (Fentanyl 2ml Vial) 25 mcg PRN Q1HR PRN IV COMM; Start at 22:30; Stop 07/16/16 at 07:17; Status DC Fentanyl Citrate (Fentanyl 2ml Vial) 50 mcg PRN Q1HR PRN IV COMM Last administered on 07/16/16 05:30; Start 07/15/16 at 22:30; Stop 07/16/16 at 07:17 ; Status DC Scopolamine (Transderm-Scop) 1 patch Q3DAYS TD Last administered on 07/18/16 09:55; Start 07/18/16 at 09:00 Scopolamine 1 patch 1 patch ONCE ONCE TD ; Start 07/15/16 at 23:30; Stop at 23:31; Status DC Sodium Chloride 1,000 ml @ 1,000 mls/hr 1X ONCE IV Last administered on 02:38; Start 07/16/16 at 01:00; Stop 07/16/16 at 01:59; Status DC Midazolam HCl 100 ml @ As Directed STK-MED ONCE IV ; Start 07/16/16 at 01:00; Stop 07/16/16 at 01:01; Status DC Midazolam HCl 100 ml @ 0 mls/hr CONT PRN IV SEE I/O RECORD Last administered on 07/19/16 07:52; Start 07/16/16 at 01:15 Vasopressin 40 unit/Dextrose 102 ml @ 6 mls/hr CONT PRN IV SEE I/O RECORD Last administered on 07/17/16 13:33; Start 07/16/16 at 05:00 Insulin Human Regular 150 unit/ Sodium Chloride 151.5 ml @ 0 mls/hr CONT PRN IV SEE I/O RECORD Last administered on 07/17/16 02:26; Start 07/16/16 at 05:00 ; Stop 07/17/16 at 10:10; Status DC Fentanyl Citrate (Fentanyl 600 Mcg/30 ml CHEMICAL RADIATION TECHNICIAN) 30 ml @ 0 mls/hr CONT PRN IV PROTOCOL Last administered on 07/19/16 06:15; Start 07/16/16 at 07:15 Vecuronium Holloway (Norcuron Bolus) 10 mg STK-MED ONCE IV ; Start 07/15/16 at 11 :00; Stop 07/16/16 at 08:06; Status DC Fentanyl Citrate (Fentanyl 2ml Vial) 100 mcg STK-MED ONCE .ROUTE ; Start at 11:00; Stop 07/16/16 at 08:06; Status DC Midazolam HCl (Versed) 10 mg STK-MED ONCE .ROUTE ; Start 07/15/16 at 11:00; Stop 07/16/16 at 08:06; Status DC Dopamine HCl/ Dextrose 400 mg STK-MED ONCE IV ; Start 07/15/16 at 11:00; Stop at 08:06; Status DC Sodium Bicarbonate 50 meq STK-MED ONCE .ROUTE ; Start 07/15/16 at 11:00; Stop at 08:06; Status DC Hydrocortisone Sodium Succinate (Solu-Cortef) 100 mg Q8HRS IV Last administered on 07/19/16 05:50; Start 07/16/16 at 09:00; Stop 07/19/16 at 09:30 ; Status DC Sodium Polystyrene Sulfonate 30 gm 30 gm 1X ONCE PO Last administered on 08:41; Start 07/16/16 at 08:30; Stop 07/16/16 at 08:34; Status DC Albumin Human (Plasmanate) 500 ml @ 125 mls/hr PRN Q6HRS PRN IV for CVP < 10; MAP < 65 Last administered on 07/17/16 08:12; Start 07/16/16 at 08:30 Sodium Bicarbonate 50 meq 1X ONCE IV Last administered on 07/16/16 08:41; Start 07/16/16 at 08:45; Stop 07/16/16 at 08:46; Status DC Info (Anti-Coagulation Monitoring By Pharmacy) 1 each PRN DAILY PRN MC SEE COMMENTS; Start 07/16/16 at 08:45; Status Cancel Ipratropium Holloway (Atrovent) 0.5 mg RTQID NEB Last administered on 07/19/16 07:39; Start 07/16/16 at 12:00 Lidocaine/Sodium Bicarbonate (Buffered Lidocaine 1%) 3 ml 1X ONCE IJ Last administered on 07/16/16 10:43; Start 07/16/16 at 09:15; Stop 07/16/16 at 09:16 ; Status DC Heparin Sodium/ Sodium Chloride 60 unit 1X ONCE IV Last administered on 10:44; Start 07/16/16 at 09:15; Stop 07/16/16 at 09:16; Status DC Heparin Sodium (Porcine) 2500 unit 2,500 unit 1X ONCE INT CAT Last administered on 07/16/16 10:44; Start 07/16/16 at 09:15; Stop 07/16/16 at 09:16 ; Status DC Sodium Chloride 40 meq/Sodium Acetate 40 meq/ Magnesium Sulfate 8 meq/Calcium Gluconate 5 meq/ Multivitamins 10 ml/Chromium/ Copper/Manganese/ Seleni/Zn 1 ml / Insulin Human Regular 10 unit/ Total Parenteral Nutrition/Amino Acids/Dextrose / Fat Emulsion Intravenous 1,512 ml @ 63 mls/hr TPN CONT IV Last administered on 07/16/16 21:53; Start 07/16/16 at 22:00; Stop 07/17/16 at 21:59 ; Status DC Pantoprazole Sodium 80 mg/ Sodium Chloride 100 ml @ 10 mls/hr Q10H IV Last administered on 07/19/16 05:10; Start 07/17/16 at 06:45 Sodium Acetate/ Potassium Acetate/ Magnesium Sulfate/ Calcium Gluconate/ Multivitamins/ Chromium/Copper/ Manganese/Seleni/ Zn/Insulin Human Regular/ Total Parenteral Nutrition/Amino Acids/Dextrose/ Fat Emulsion Intravenous ( Calcium Gluconate/ Infuvite Adult/ Multitrace-5 Conc/ Novolin R Vi... 1,512 ml @ 63 mls/hr TPN CONT IV Last administered on 07/17/16 21:49; Start 07/17/16 at 22:00; Stop 07/18/16 at 21:59; Status DC Insulin Detemir (Levemir) 25 units BID SQ Last administered on 07/17/16 20:51 ; Start 07/17/16 at 10:30; Stop 07/18/16 at 08:12; Status DC Insulin Aspart (Novolog) 0-9 UNITS TIDWMEALS SQ Last administered on 07/18/16 10:03; Start 07/17/16 at 12:00; Stop 07/18/16 at 11:55; Status DC Dextrose 12.5 gm PRN Q15MIN PRN IV SEE COMMENTS; Start 07/17/16 at 10:15; Status UNV Iohexol (Omnipaque 300 Mg/ml) 100 ml STK-MED ONCE .ROUTE ; Start 07/17/16 at 10: 45; Stop 07/17/16 at 10:46; Status DC Lidocaine/Sodium Bicarbonate 20 ml 20 ml STK-MED ONCE IJ ; Start 07/17/16 at 10: 45; Stop 07/17/16 at 10:46; Status DC Heparin Sodium/ Sodium Chloride 500 ml @ As Directed STK-MED ONCE .ROUTE ; Start 07/17/16 at 10:46; Stop 07/17/16 at 10:47; Status DC Heparin Sodium/ Sodium Chloride 1,000 unit 1X ONCE IART Last administered on 11:27; Start 07/17/16 at 11:15; Stop 07/17/16 at 11:26; Status DC Lidocaine/Sodium Bicarbonate (Buffered Lidocaine 1%) 3 ml 1X ONCE IJ Last administered on 07/17/16 11:15; Start 07/17/16 at 11:15; Stop 07/17/16 at 11:26 ; Status DC Iohexol (Omnipaque 300 Mg/ml) 40 ml 1X ONCE IART Last administered on 11:26; Start 07/17/16 at 11:15; Stop 07/17/16 at 11:26; Status DC Info (Do NOT chart on this entry -- for MONITORING) 1 each PRN DAILY PRN MC SEE COMMENTS; Start 07/17/16 at 11:30; Stop 07/19/16 at 11:29 Calcium Chloride 2,000 mg STK-MED ONCE IV ; Start 07/16/16 at 13:02; Stop at 13:03; Status DC Epinephrine HCl 4 mg STK-MED ONCE .ROUTE ; Start 07/16/16 at 13:02; Stop at 13:03; Status DC Furosemide 40 mg 40 mg 1X ONCE IVP Last administered on 07/17/16 16:45; Start 07/17/16 at 16:45; Stop 07/17/16 at 16:47; Status DC Propofol (Diprivan) 100 ml @ As Directed STK-MED ONCE IV ; Start 07/17/16 at 16 :36; Stop 07/17/16 at 16:37; Status DC Insulin Detemir (Levemir) 35 units BID SQ Last administered on 07/18/16 10:00 ; Start 07/18/16 at 09:00; Stop 07/18/16 at 11:55; Status DC Insulin Aspart (Novolog) 10 units Q6HRS SQ ; Start 07/18/16 at 12:00; Stop 07/18 at 12:00; Status DC Insulin Aspart 20 units 20 units 1X ONCE SQ Last administered on 07/18/16 10: 02; Start 07/18/16 at 08:15; Stop 07/18/16 at 11:56; Status DC Sodium Acetate/ Potassium Acetate/ Magnesium Sulfate/ Calcium Gluconate/ Multivitamins/ Chromium/Copper/ Manganese/Seleni/ Zn/Insulin Human Regular/ Total Parenteral Nutrition/Amino Acids/Dextrose/ Fat Emulsion Intravenous ( Calcium Gluconate/ Infuvite Adult/ Multitrace-5 Conc/ Novolin R Vi... 1,512 ml @ 63 mls/hr TPN CONT IV Last administered on 07/18/16 22:03; Start 07/18/16 at 22:00; Stop 07/19/16 at 21:59 Atropine Sulfate 0.5 mg 0.5 mg STK-MED ONCE .ROUTE ; Start 07/18/16 at 09:43; Stop 07/18/16 at 09:44; Status DC Insulin Human Regular/Sodium Chloride (Novolin R Vial/ Iv Normal Saline 150ml) 151.5 ml @ 0 mls/hr CONT PRN IV SEE I/O RECORD Last administered on 07/18/16 13:54; Start 07/18/16 at 11:45 Dextrose 12.5 gm 12.5 gm PRN Q15MIN PRN IV LOW BLOOD SUGAR; Start 07/18/16 at 11:45 Potassium Chloride (KCl Premix 20meq) 50 ml @ 25 mls/hr Q2H IV Last administered on 07/19/16 09:04; Start 07/19/16 at 09:30; Stop 07/19/16 at 13:29 Propofol (Diprivan) 1,000 mg STK-MED ONCE IV ; Start 07/17/16 at 16:36; Stop at 08:22; Status DC Atropine Sulfate 1 mg STK-MED ONCE .ROUTE ; Start 07/18/16 at 09:43; Stop at 08:53; Status DC Hydrocortisone Sodium Succinate (Solu-Cortef) 50 mg Q8HRS IV ; Start 07/19/16 at 14:00 Heparin Sodium (Porcine) 7400 unit 7,400 unit 1X ONCE IV Last administered on 07/19/16 10:03; Start 07/19/16 at 09:45; Stop 07/19/16 at 09:53; Status DC Heparin Sodium/ Dextrose 500 ml @ 0 mls/hr CONT PRN IV SEE I/O RECORD; Start at 09:45 Heparin Sodium (Porcine) 2,800 unit PRN Q6HRS PRN IV FOR UFH LEVEL LESS THAN 0.2; Start 07/19/16 at 09:45 Heparin Sodium (Porcine) 1,400 unit PRN Q6HRS PRN IV FOR UFH LEVEL 0.2 - 0.29; Start 07/19/16 at 09:45 Warfarin Sodium (Coumadin Per Pharmacy) 1 each PRN DAILY PRN MC PER PROTOCOL; Start 07/19/16 at 09:45; Status UNV Active Scripts Active Levemir Flextouch (Insulin Detemir) 100 Unit/1 Ml Insuln.pen 20 Units SQ QHS 30 Days Novolog Flexpen (Insulin Aspart) 100 Unit/1 Ml Insuln.pen 10 Units SQ TIDAC 30 Days Reported Advair 100-50 Diskus (Fluticasone/Salmeterol) 1 Each Disk.w.dev 1 Puff IH BID Spiriva Respimat (Tiotropium Holloway) 4 Gm Mist.inhal 2.5 Gm IH DAILY Symbicort 160-4.5 Mcg Inhaler (Budesonide/Formoterol Fumarate) 10.2 Gm Hfa.aer.ad 2 Puff IH BID Atorvastatin Calcium 20 Mg Tablet 20 Mg PO HS Lisinopril-Hctz 10-12.5 Mg Tab (Lisinopril/Hydrochlorothiazide) 1 Each Tablet 1 Tab PO DAILY Isosorbide Mononitrate Er (Isosorbide Mononitrate) 120 Mg Tab.er.24h 120 Mg PO DAILY Novolin N (Nph, Human Insulin Isophane) 100 Unit/1 Ml Vial 0 SQ Promethazine-Codeine Syrup (Promethazine Hcl/Codeine) 118 Ml Syrup 5 Ml PO Q4- 6HRS Diltiazem 24HR Cd (Diltiazem Hcl) 240 Mg Cap.er.24h 240 Mg PO DAILY NITROGLYCERIN SubLingual (Nitroglycerin) 0.4 Mg Tab.subl 0.4 Mg SL PRN Q5MIN PRN Atorvastatin Calcium 40 Mg Tablet 40 Mg PO HS Vitals/I & O Vital Sign - Last 24 Hours 07/18/16 07/18/16 07/18/16 07/18/16 11:00 11:17 11:19 12:00 Temp 97.5 97.5 Pulse 62 Resp 25 25 B/P 116/57 Pulse Ox 100 100 100 O2 Delivery Ventilator Ventilator Ventilator Mechanical Ventilator 07/18/16 07/18/16 07/18/16 07/18/16 12:00 12:00 13:00 14:00 Pulse 68 70 68 Resp 25 25 25 B/P 138/60 140/61 141/59 Pulse Ox 100 100 100 07/18/16 07/18/16 07/18/16 07/18/16 15:00 15:15 15:47 16:00 Temp 98.0 98.0 Pulse 82 72 Resp 25 25 25 B/P 135/57 158/63 Pulse Ox 100 100 100 100 O2 Delivery Ventilator Ventilator Ventilator 07/18/16 07/18/16 07/18/16 07/18/16 16:00 16:00 16:17 16:50 Resp 26 B/P Pulse Ox 100 100 O2 Delivery Mechanical Ventilator Ventilator Ventilator 07/18/16 07/18/16 07/18/16 07/18/16 17:00 18:20 19:00 19:10 Pulse 78 71 70 Resp 25 25 25 25 B/P 157/63 164/65 164/66 Pulse Ox 100 100 100 100 O2 Delivery Ventilator Ventilator 07/18/16 07/18/16 07/18/16 07/18/16 19:38 20:00 20:00 20:00 Temp 97.0 97.0 Pulse 70 70 Resp 25 B/P 154/67 154/67 Pulse Ox 100 100 O2 Delivery Ventilator Mechanical Ventilator Ventilator 07/18/16 07/18/16 07/18/16 07/18/16 21:00 22:00 23:00 23:29 Pulse 64 70 67 Resp 25 25 25 B/P 142/62 149/66 146/61 Pulse Ox 100 100 100 100 O2 Delivery Ventilator Ventilator Ventilator Ventilator 07/19/16 07/19/16 07/19/16 07/19/16 00:00 00:00 01:00 01:20 Temp 98.0 98.0 Pulse 71 62 Resp 25 25 B/P 167/81 149/68 Pulse Ox 100 100 100 O2 Delivery Mechanical Ventilator Ventilator Ventilator Ventilator 07/19/16 07/19/16 07/19/16 07/19/16 02:00 03:00 04:00 04:00 Temp 96.4 96.4 Pulse 56 62 55 Resp 25 25 25 B/P 114/64 131/61 110/59 Pulse Ox 100 100 100 O2 Delivery Ventilator Ventilator Ventilator Mechanical Ventilator 07/19/16 07/19/16 07/19/16 07/19/16 04:03 05:00 05:01 06:00 Pulse 61 58 Resp 25 25 B/P 89/53 92/55 Pulse Ox 100 100 100 100 O2 Delivery Ventilator Ventilator Ventilator Ventilator 07/19/16 07/19/16 07/19/16 07/19/16 07:00 07:39 08:00 08:00 Temp 98.3 98.3 98.3 98.3 Pulse 65 65 66 Resp 25 25 25 B/P 104/59 117/65 118/62 Pulse Ox 100 100 100 100 O2 Delivery Ventilator Ventilator Ventilator Ventilator 07/19/16 07/19/16 07/19/16 08:00 09:00 09:05 Pulse 68 Resp 25 B/P 116/65 Pulse Ox 100 100 O2 Delivery Mechanical Ventilator Ventilator Ventilator Intake and Output 07/18/16 07/18/16 07/19/16 15:00 23:00 07:00 Intake Total 70 ml 1274 ml 999 ml Output Total 400 ml 355 ml 260 ml Balance -330 ml 919 ml 739 ml JUHI FRANCIS III, DO Jul 19, 2016 10:25
[2016-07-19] MEDS ORDERED: DEXTROSE 50% 25 GM / 50ML DISP.SYRIN. IV PRN (10:30)
--- NOTE | 2016-07-19 10:52 | RAD ---
EXAM: Chest, single view. HISTORY: Endotracheal tube placement. COMPARISON: 07/19/2016. FINDINGS: A frontal view of the chest is obtained. There has been advancement of an endotracheal tube within the mid trachea, with the tip terminating a proximally 5 cm proximal to the herson. There are right internal jugular catheters within the superior right atrium. There is blunting of the right costophrenic angle. There is bilateral lower lobe atelectasis or infiltrate. There is cardiomegaly. There is no pneumothorax. IMPRESSION: 1. Advancement of endotracheal tube within the mid trachea. 2. Right internal jugular catheter is in the superior right atrium, stable in appearance. 3. Stable blunting of the right costophrenic angle due to scarring or a small effusion. 4. Stable bilateral lower lobe atelectasis or infiltrate.
--- NOTE | 2016-07-19 10:54 | RAD ---
EXAM: Abdomen, single view. HISTORY: Dobbhoff placement. COMPARISON: 07/15/2016. FINDINGS: A frontal view of the abdomen is obtained. There is a Dobbhoff catheter within the gastric antrum. There are right-sided internal jugular catheters within the superior right atrium. There is stable blunting of the right costophrenic angle. There is gas and stool within the colon. IMPRESSION: 1. Enteric catheter within the stomach. 2. Stable blunting of the right costophrenic angle due to a small effusion or pleural scarring. 3. Gas and stool within the colon.
[2016-07-19] MEDS: ALBUTEROL SULFATE 2.5 MG/3 ML NEBU. NEB PRN (11:20)
--- NOTE | 2016-07-19 11:37 | PDOC ---
Renal-Progress Notes Subjective Notes Notes NONE History of Present Illness Hx of present illness BETTER Vitals Vitals Vital Signs Date Time Temp Pulse Resp B/P Pulse Ox O2 Delivery O2 Flow Rate FiO2 07/19/16 11:21 100 Ventilator 07/19/16 11:00 77 21 134/62 07/19/16 08:00 98.3 98.3 Weight Weight [ ] I.O. Intake and Output Intake and Output 07/19/16 07:00 Intake Total 2343 ml Output Total 1015 ml Balance 1328 ml Blood Product IV Normal Saline Flush 70 ml Other 2273 ml Output Urine Total 1015 ml Labs Labs Laboratory Tests Test 07/18/16 12:00 07/18/16 13:16 07/18/16 14:23 07/18/16 15:37 White Blood Count 10.8x10^3/uL (4.0-11.0) Red Blood Count 2.93x10^6/uL (4.30-5.70) Hemoglobin 8.3g/dL (13.0-17.5) Hematocrit 25.1% (39.0-53.0) Mean Corpuscular Volume 86fL (79-100) Mean Corpuscular Hemoglobin 28pg (25-35) Mean Corpuscular Hemoglobin Concent 33g/dL (31-37) Red Cell Distribution Width 15.0% (11.5-14.5) Platelet Count 162x10^3/uL (140-400) Glucose (Fingerstick) 393mg/dL (70-99) 370mg/dL (70-99) 269mg/dL (70-99) Test 07/18/16 18:10 07/18/16 19:25 07/18/16 20:29 07/18/16 21:33 Glucose (Fingerstick) 159mg/dL (70-99) 155mg/dL (70-99) 178mg/dL (70-99) 114mg/dL (70-99) Test 07/18/16 22:25 07/18/16 23:28 07/19/16 00:36 07/19/16 01:33 Glucose (Fingerstick) 127mg/dL (70-99) 92mg/dL (70-99) 80mg/dL (70-99) 80mg/dL (70-99) Test 07/19/16 02:32 07/19/16 03:33 07/19/16 04:28 07/19/16 05:25 Glucose (Fingerstick) 83mg/dL (70-99) 75mg/dL (70-99) 98mg/dL (70-99) White Blood Count 10.2x10^3/uL (4.0-11.0) Red Blood Count 2.62x10^6/uL (4.30-5.70) Hemoglobin 7.4g/dL (13.0-17.5) Hematocrit 22.3% (39.0-53.0) Mean Corpuscular Volume 85fL (79-100) Mean Corpuscular Hemoglobin 28pg (25-35) Mean Corpuscular Hemoglobin Concent 33g/dL (31-37) Red Cell Distribution Width 14.7% (11.5-14.5) Platelet Count 145x10^3/uL (140-400) Neutrophils (%) (Auto) 84% (31-73) Lymphocytes (%) (Auto) 6% (24-48) Monocytes (%) (Auto) 10% (0-9) Eosinophils (%) (Auto) 0% (0-3) Basophils (%) (Auto) 0% (0-3) Neutrophils # (Auto) 8.5x10^3uL (1.8-7.7) Lymphocytes # (Auto) 0.6x10^3/uL (1.0-4.8) Monocytes # (Auto) 1.0x10^3/uL (0.0-1.1) Eosinophils # (Auto) 0.0x10^3/uL (0.0-0.7) Basophils # (Auto) 0.0x10^3/uL (0.0-0.2) Sodium Level 148mmol/L (136-145) Potassium Level 3.2mmol/L (3.5-5.1) Chloride Level 113mmol/L (98-107) Carbon Dioxide Level 25mmol/L (21-32) Anion Gap 10 (6-14) Blood Urea Nitrogen 76mg/dL (8-26) Creatinine 1.7mg/dL (0.7-1.3) Estimated GFR (Cockcroft-Gault) 48.0 BUN/Creatinine Ratio 45 (6-20) Glucose Level 128mg/dL (70-99) Calcium Level 7.8mg/dL (8.5-10.1) Magnesium Level 2.4mg/dL (1.8-2.4) Total Bilirubin 0.2mg/dL (0.2-1.0) Aspartate Amino Transf (AST/SGOT) 206U/L (15-37) Alanine Aminotransferase (ALT/SGPT) 475U/L (16-63) Alkaline Phosphatase 108U/L (46-116) Total Protein 5.0g/dL (6.4-8.2) Albumin 1.9g/dL (3.4-5.0) Albumin/Globulin Ratio 0.6 (1.0-1.7) Test 07/19/16 05:26 07/19/16 06:28 07/19/16 07:36 07/19/16 07:50 Glucose (Fingerstick) 118mg/dL (70-99) 86mg/dL (70-99) 120mg/dL (70-99) O2 Saturation 96% (92-99) Arterial Blood pH 7.42 (7.35-7.45) Arterial Blood pCO2 at Patient Temp 31mmHg (35-46) Arterial Blood pO2 at Patient Temp 94mmHg (65-108) Arterial Blood HCO3 20mmol/L (21-28) Arterial Blood Base Excess -4mmol/L (-3-3) FiO2 40 Test 07/19/16 08:43 07/19/16 09:48 Glucose (Fingerstick) 111mg/dL (70-99) 147mg/dL (70-99) Micro Micro Microbiology 07/15/16 Blood Culture - Preliminary, Resulted NO GROWTH AFTER 3 DAYS 07/14/16 Urine Culture - Final, Complete 07/14/16 Urine Culture Result 1 (MARÍA) - Final, Complete 07/14/16 Urine Culture Result 2 (MARÍA) - Final, Complete 07/14/16 Antimicrobic Susceptibility - Final, Complete Review of Systems Constitutional: yes: no symptom reported Physical Exam General Appearance: no apparent distress Respiratory: decreased breath sounds Heart: S1S2 Abdomen: soft, bowel sounds present Genitourinary: bladder flat Extremities: pulses present Neurology: other (SEDATED) Assessment Assessment IMP BASIM-BETTER WITH CR DOWN TO 1.7 RESP FAILURE ANGIOEDEMA MILD HYPOKALEMIA MILD HYPERNATREMIA PE ANEMIA PLAN CONT TPN ADJUSTMENTS TO BE MADE TF TRIAL SOON SUPPORTIVE CARE WILL FOLLOW ERIKA IBARRA MD Jul 19, 2016 11:37
[2016-07-19] MEDS ORDERED: INSULIN ASPART 300 UNITS/3 ML INSULN.PEN SQ SCH (12:00)
[2016-07-19] MEDS: CEFTRIAXONE SODIUM 1 GM in IV NORMAL SALINE 50ML 50 ML IV SCH ×2 (12:01→12:25)
--- NOTE | 2016-07-19 12:59 | RAD ---
EXAM: Chest, single view. HISTORY: Respiratory failure. COMPARISON: 07/16/2016. FINDINGS: A frontal view of the chest is obtained. There is an endotracheal tube within the mid trachea. There is an enteric feeding catheter the on the [id number] within the stomach. There are right internal jugular catheter is within the superior right atrium. There is blunting of the right costophrenic angle. There is lower lobe predominant increased interstitial opacity. IMPRESSION: 1. Slight interval increase in lower lobe predominant interstitial opacity suggesting interstitial infiltrate. 2. Suspected right basilar pleural scarring superimposed on small pleural effusions. 3. Cardiomegaly. 4. Support lines and tubes, described above
--- NOTE | 2016-07-19 15:52 | PDOC2 ---
PALLIATIVE CARE Palliative Care Note Palliative Care Consult requested by Dr. Tan to address code status and hospice. Patient on Ventilator. No response to verbal stimuli Diagnosis; admitted with swelling of face and tongue--allergic reaction; COPD; Hyperglycemia, DM2 HTN, HLD. S/P Code 07/15 x 2; Bilateral PE; PEA. non oclusive thrombus Met with Jennifer; daughter Eriberto and her ; other children not able to attend [facility]. Reviewed current medical condition; as above. is able to verbalize the events as above. Discussed Code Status; requests full code and full aggressive care including tracheostomy, PEG tube, dialysis if needed. Jennifer requests that he not go to a fdc. Informed that patient may need more skilled nursing acute care at a facility to continue to treat. Family informed that weaning trials will begin when patient is more awake. Jennifer asked that she be notified when the plan is for extubation. 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 Mandaen. 42 years. Eriberto is concerned about her father's suffering and expressed that she would not want her father to suffer. PLan: Full Aggressive Care Full Code Will continue to re-evaluate and meet again as needed. Jennifer-- would like to be here when patient is extubated. NORMAN GARCIA Jul 19, 2016 15:52
[2016-07-19 16:32] LABS: INR 1.5 (0.8-1.1)
[2016-07-19] MEDS ORDERED: WARFARIN 4 MG TABLET. PO ONE (17:02)
[2016-07-19] MEDS: INSULIN ASPART 300 UNITS/3 ML INSULN.PEN SQ SCH (17:13)
[2016-07-19] MEDS ORDERED: [UNRECOGNIZED DRUG - OTHER] IV SCH ×9 (22:00)
[2016-07-19] MEDS ORDERED: AMINO ACIDS IV SCH ×9 (22:00)
[2016-07-19] MEDS ORDERED: TOTAL PARENTERAL NUTRITION IV SCH ×9 (22:00)
[2016-07-19] MEDS ORDERED: DEXTROSE 70% IV SCH ×9 (22:00)
[2016-07-19] MEDS: ATORVASTATIN CALCIUM 40 MG TABLET. PO SCH (22:20)
[2016-07-19 23:14] LABS: HEP A IGM ABDY Negative (Negative)
[2016-07-20] VITALS (28 sets, daily range): BP systolic 99–160; BP diastolic 53–90
[2016-07-20] MEDS: PANTOPRAZOLE SODIUM IV 80 MG in IV NORMAL SALINE 100ML 100 ML IV SCH ×3 (02:44→22:27)
[2016-07-20] MEDS: FENTANYL PF 100 MCG/2 ML VIAL. IV PRN ×4 (02:45→22:55)
[2016-07-20 04:04] LABS: HEMATOCRIT 22.8 % (39.0-53.0); HEMOGLOBIN 7.5 g/dL (13.0-17.5); RED BLOOD COUNT 2.64 x10^6/uL (4.30-5.70); RED CELL DISTRIBUTION WIDTH 14.8 % (11.5-14.5); WHITE BLOOD COUNT 12.4 x10^3/uL (4.0-11.0)
[2016-07-20 04:11] LABS: CALCIUM 7.8 mg/dL (8.5-10.1); CREATININE 2.2 mg/dL (0.7-1.3); GFR 35.7; PHOSPHORUS 5.7 mg/dL (2.6-4.7); POTASSIUM 3.7 mmol/L (3.5-5.1)
[2016-07-20 04:15] LABS: INR 1.3 (0.8-1.1); PROTHROMBIN TIME PATIENT 15.5 SEC (11.7-14.0)
[2016-07-20] MEDS: HYDROCORTISONE SOD SUCC/PF 100 MG/2 ML VIAL. IV SCH ×3 (06:01→21:49)
[2016-07-20] MEDS: INSULIN ASPART 300 UNITS/3 ML INSULN.PEN SQ SCH ×5 (06:02→23:49)
[2016-07-20] MEDS: HEPARIN 25,000UTS/500ML PREMIX 500 ML IV PRN (07:04)
--- NOTE | 2016-07-20 07:44 | RAD ---
Portable chest, 07/20/2016: History: Respiratory failure Comparison is made to yesterday's study at 10:43 AM. The ET tube tip lies 5 cm above the herson. Two right jugular central venous catheters are unchanged in positions. A Dobbhoff tube remains in place, although its tip is not visible. The patient is rotated to the right. The heart size and pulmonary vascularity are normal. There are unchanged right basilar pleural/parenchymal opacities, predominantly due to scarring. There is minimal left basilar atelectasis/infiltrate. No new abnormality is seen. IMPRESSION: No significant change since yesterday's study.
[2016-07-20] MEDS: IPRATROPIUM BROMIDE 0.5 MG/2.5 ML NEBU. NEB SCH ×4 (08:39→19:16)
--- NOTE | 2016-07-20 08:53 | PDOC ---
PULMONARY PROGRESS NOTES Subjective off sedation moves extremities Vitals Vital Signs Date Time Temp Pulse Resp B/P Pulse Ox O2 Delivery O2 Flow Rate FiO2 07/20/16 08:00 Mechanical Ventilator 07/20/16 06:30 22 100 07/20/16 06:00 74 114/56 07/20/16 04:00 98.6 98.6 HEENT: Other (nc at orally intubated, nose clear, ) Lungs: Other (decrease bs) Cardiovascular: S1, S2 Abdomen: Soft, Non-tender, Other (no groin tenderness) Extremities: Other (trace edema) Skin: Warm Labs Laboratory Tests Test 07/18/16 11:35 07/18/16 12:00 07/18/16 13:16 07/18/16 14:23 Glucose (Fingerstick) 398mg/dL (70-99) 393mg/dL (70-99) 370mg/dL (70-99) White Blood Count 10.8x10^3/uL (4.0-11.0) Red Blood Count 2.93x10^6/uL (4.30-5.70) Hemoglobin 8.3g/dL (13.0-17.5) Hematocrit 25.1% (39.0-53.0) Mean Corpuscular Volume 86fL (79-100) Mean Corpuscular Hemoglobin 28pg (25-35) Mean Corpuscular Hemoglobin Concent 33g/dL (31-37) Red Cell Distribution Width 15.0% (11.5-14.5) Platelet Count 162x10^3/uL (140-400) Test 07/18/16 15:37 07/18/16 18:10 07/18/16 19:25 07/18/16 20:29 Glucose (Fingerstick) 269mg/dL (70-99) 159mg/dL (70-99) 155mg/dL (70-99) 178mg/dL (70-99) Test 07/18/16 21:33 07/18/16 22:25 07/18/16 23:28 07/19/16 00:36 Glucose (Fingerstick) 114mg/dL (70-99) 127mg/dL (70-99) 92mg/dL (70-99) 80mg/dL (70-99) Test 07/19/16 01:33 07/19/16 02:32 07/19/16 03:33 07/19/16 04:28 Glucose (Fingerstick) 80mg/dL (70-99) 83mg/dL (70-99) 75mg/dL (70-99) 98mg/dL (70-99) Test 07/19/16 05:25 07/19/16 05:26 07/19/16 06:28 07/19/16 07:36 White Blood Count 10.2x10^3/uL (4.0-11.0) Red Blood Count 2.62x10^6/uL (4.30-5.70) Hemoglobin 7.4g/dL (13.0-17.5) Hematocrit 22.3% (39.0-53.0) Mean Corpuscular Volume 85fL (79-100) Mean Corpuscular Hemoglobin 28pg (25-35) Mean Corpuscular Hemoglobin Concent 33g/dL (31-37) Red Cell Distribution Width 14.7% (11.5-14.5) Platelet Count 145x10^3/uL (140-400) Neutrophils (%) (Auto) 84% (31-73) Lymphocytes (%) (Auto) 6% (24-48) Monocytes (%) (Auto) 10% (0-9) Eosinophils (%) (Auto) 0% (0-3) Basophils (%) (Auto) 0% (0-3) Neutrophils # (Auto) 8.5x10^3uL (1.8-7.7) Lymphocytes # (Auto) 0.6x10^3/uL (1.0-4.8) Monocytes # (Auto) 1.0x10^3/uL (0.0-1.1) Eosinophils # (Auto) 0.0x10^3/uL (0.0-0.7) Basophils # (Auto) 0.0x10^3/uL (0.0-0.2) Sodium Level 148mmol/L (136-145) Potassium Level 3.2mmol/L (3.5-5.1) Chloride Level 113mmol/L (98-107) Carbon Dioxide Level 25mmol/L (21-32) Anion Gap 10 (6-14) Blood Urea Nitrogen 76mg/dL (8-26) Creatinine 1.7mg/dL (0.7-1.3) Estimated GFR (Cockcroft-Gault) 48.0 BUN/Creatinine Ratio 45 (6-20) Glucose Level 128mg/dL (70-99) Calcium Level 7.8mg/dL (8.5-10.1) Magnesium Level 2.4mg/dL (1.8-2.4) Total Bilirubin 0.2mg/dL (0.2-1.0) Aspartate Amino Transf (AST/SGOT) 206U/L (15-37) Alanine Aminotransferase (ALT/SGPT) 475U/L (16-63) Alkaline Phosphatase 108U/L (46-116) Total Protein 5.0g/dL (6.4-8.2) Albumin 1.9g/dL (3.4-5.0) Albumin/Globulin Ratio 0.6 (1.0-1.7) Hepatitis A IgM Antibody Negative (Negative) Hepatitis B Surface Antigen Negative (Negative) Hepatitis B Core IgM Antibody Negative (Negative) Hepatitis C Antibody 0.1s/co ratio (0.0-0.9) Glucose (Fingerstick) 118mg/dL (70-99) 86mg/dL (70-99) 120mg/dL (70-99) Test 07/19/16 07:50 07/19/16 08:43 07/19/16 09:48 07/19/16 11:57 O2 Saturation 96% (92-99) Arterial Blood pH 7.42 (7.35-7.45) Arterial Blood pCO2 at Patient Temp 31mmHg (35-46) Arterial Blood pO2 at Patient Temp 94mmHg (65-108) Arterial Blood HCO3 20mmol/L (21-28) Arterial Blood Base Excess -4mmol/L (-3-3) FiO2 40 Glucose (Fingerstick) 111mg/dL (70-99) 147mg/dL (70-99) 170mg/dL (70-99) Test 07/19/16 16:05 07/19/16 17:09 07/19/16 21:50 07/19/16 23:58 Hemoglobin 8.1g/dL (13.0-17.5) Prothrombin Time 17.0SEC (11.7-14.0) Prothromb Time International Ratio 1.5 (0.8-1.1) Heparin Anti-Xa Act, Unfractionated > 1.10IU/mL (0.30-0.70) > 1.10IU/mL (0.30-0.70) Glucose (Fingerstick) 183mg/dL (70-99) 247mg/dL (70-99) Test 07/20/16 03:45 07/20/16 05:58 White Blood Count 12.4x10^3/uL (4.0-11.0) Red Blood Count 2.64x10^6/uL (4.30-5.70) Hemoglobin 7.5g/dL (13.0-17.5) Hematocrit 22.8% (39.0-53.0) Mean Corpuscular Volume 87fL (79-100) Mean Corpuscular Hemoglobin 29pg (25-35) Mean Corpuscular Hemoglobin Concent 33g/dL (31-37) Red Cell Distribution Width 14.8% (11.5-14.5) Platelet Count 160x10^3/uL (140-400) Prothrombin Time 15.5SEC (11.7-14.0) Prothromb Time International Ratio 1.3 (0.8-1.1) Heparin Anti-Xa Act, Unfractionated 0.42IU/mL (0.30-0.70) Sodium Level 144mmol/L (136-145) Potassium Level 3.7mmol/L (3.5-5.1) Chloride Level 108mmol/L (98-107) Carbon Dioxide Level 25mmol/L (21-32) Anion Gap 11 (6-14) Blood Urea Nitrogen 93mg/dL (8-26) Creatinine 2.2mg/dL (0.7-1.3) Estimated GFR (Cockcroft-Gault) 35.7 Glucose Level 296mg/dL (70-99) Calcium Level 7.8mg/dL (8.5-10.1) Phosphorus Level 5.7mg/dL (2.6-4.7) Albumin 2.0g/dL (3.4-5.0) Glucose (Fingerstick) 314mg/dL (70-99) Laboratory Tests Test 07/19/16 09:48 07/19/16 11:57 07/19/16 16:05 07/19/16 17:09 Glucose (Fingerstick) 147mg/dL (70-99) 170mg/dL (70-99) 183mg/dL (70-99) Hemoglobin 8.1g/dL (13.0-17.5) Prothrombin Time 17.0SEC (11.7-14.0) Prothromb Time International Ratio 1.5 (0.8-1.1) Heparin Anti-Xa Act, Unfractionated > 1.10IU/mL (0.30-0.70) Test 07/19/16 21:50 07/19/16 23:58 07/20/16 03:45 07/20/16 05:58 Heparin Anti-Xa Act, Unfractionated > 1.10IU/mL (0.30-0.70) 0.42IU/mL (0.30-0.70) Glucose (Fingerstick) 247mg/dL (70-99) 314mg/dL (70-99) White Blood Count 12.4x10^3/uL (4.0-11.0) Red Blood Count 2.64x10^6/uL (4.30-5.70) Hemoglobin 7.5g/dL (13.0-17.5) Hematocrit 22.8% (39.0-53.0) Mean Corpuscular Volume 87fL (79-100) Mean Corpuscular Hemoglobin 29pg (25-35) Mean Corpuscular Hemoglobin Concent 33g/dL (31-37) Red Cell Distribution Width 14.8% (11.5-14.5) Platelet Count 160x10^3/uL (140-400) Prothrombin Time 15.5SEC (11.7-14.0) Prothromb Time International Ratio 1.3 (0.8-1.1) Sodium Level 144mmol/L (136-145) Potassium Level 3.7mmol/L (3.5-5.1) Chloride Level 108mmol/L (98-107) Carbon Dioxide Level 25mmol/L (21-32) Anion Gap 11 (6-14) Blood Urea Nitrogen 93mg/dL (8-26) Creatinine 2.2mg/dL (0.7-1.3) Estimated GFR (Cockcroft-Gault) 35.7 Glucose Level 296mg/dL (70-99) Calcium Level 7.8mg/dL (8.5-10.1) Phosphorus Level 5.7mg/dL (2.6-4.7) Albumin 2.0g/dL (3.4-5.0) Medications Active Scripts Medications Dose Route/Sig Days Date Category Advair 100-50 Diskus (Fluticasone/Salmeterol) 1 Each Disk.w.dev 1 Puff IH BID 06/21/16 Reported Spiriva Respimat (Tiotropium [place]) 4 Gm Mist.inhal 2.5 Gm IH DAILY 06/21/16 Reported Symbicort 160-4.5 Mcg Inhaler (Budesonide/Formoterol Fumarate) 10.2 Gm Hfa.aer.ad 2 Puff IH BID 06/21/16 Reported Atorvastatin Calcium 20 Mg Tablet 20 Mg PO HS 06/21/16 Reported Lisinopril-Hctz 10-12.5 Mg Tab (Lisinopril/Hydrochlorothiazide) 1 Each Tablet 1 Tab PO DAILY 06/21/16 Reported Isosorbide Mononitrate Er (Isosorbide Mononitrate) 120 Mg Tab.er.24h 120 Mg PO DAILY 06/21/16 Reported Levemir Flextouch (Insulin Detemir) 100 Unit/1 Ml Insuln.pen 20 Units SQ QHS 30 11/24/15 Rx Novolog Flexpen (Insulin Aspart) 100 Unit/1 Ml Insuln.pen 10 Units SQ TIDAC 30 11/24/15 Rx Novolin N (Nph, Human Insulin Isophane) 100 Unit/1 Ml Vial 0 SQ 11/18/15 Reported Promethazine-Codeine Syrup (Promethazine Hcl/Codeine) 118 Ml Syrup 5 Ml PO Q4-6HRS 11/18/15 Reported Diltiazem 24HR Cd (Diltiazem Hcl) 240 Mg Cap.er.24h 240 Mg PO DAILY 11/18/15 Reported NITROGLYCERIN SubLingual (Nitroglycerin) 0.4 Mg Tab.subl 0.4 Mg SL PRN Q5MIN PRN 11/18/15 Reported Atorvastatin Calcium 40 Mg Tablet 40 Mg PO HS 11/18/[address] reviewed, 1. Widespread multifocal bilateral segmental pulmonary embolism, with nonocclusive lobar embolism involving the right lower and middle lobes. 2. Diffuse tree-in-bud opacification suggestive of acute bronchiolitis. Findings are less confluence than on the prior examination, but now involve the lower lobes. 3. Right heart enlargement with straightening of the interventricular septum possibly due to pulmonary hypertension. Correlate clinically and consider echocardiography if warranted. 4. Short segment high-grade stricture and/or focal obliteration of the right upper lobe bronchus. No adjacent mass or evidence of extrinsic compression. This is stable. CXR 07/19 chronic RLL pleural thickening/ ET high Impression . 1. Acute respiratory failure secondary to angioedema, self extubated 07/14, reintubated 07/15, s/p cardiopulmonary arrest, Acute extensive PE, DVT, s/p TPA 2. Acute extensive PE with shock, DVT, s/p TPA, off pressors 2. Lisinopril induced angioedema. resolved 3. Chronic obstructive pulmonary disease. 4. Hypertension. 5. Coronary artery disease. s/p emergent cath.no sig disease 6. BASIM, improving 7. anemia,improved, off AC since last night Plan . did not do well on PS, improving will sedate PRN, PS as tolerated 1. cont vent support for now 2. Continue steroids, start taper 3. GI prophylaxis. 4. follow nephro rec 5. re-start Heparin protocol. follow Hb closely 6. consider enteral nutrition, wean off TPN 7. NEBS CCT 30 minutes DOUGIE RIVAS MD Jul 20, 2016 08:53
[2016-07-20] MEDS: MUPIROCIN 2 % NASAL OINTMENT 22GM TUBE. NS SCH ×2 (09:35→20:31)
[2016-07-20] MEDS: CHLORHEXIDINE 0.12% 15 ML MOUTHWASH. MM SCH ×2 (09:35→20:31)
[2016-07-20 09:37] LABS: HCO3 ABG 24 mmol/L (21-28); PCO2 ABG 45 mmHg (35-46); PH ABG 7.34 (7.35-7.45); PO2 ABG 74 mmHg (65-108); SAT O2 ABG 92 % (92-99)
[2016-07-20 09:40] LABS: FIO2 ABG 40
--- NOTE | 2016-07-20 10:10 | PDOC ---
Objective: Objective: Per RN - better today, no obvious bleeding, tolerating tube feeds. Vital Signs: Vital Signs Date Time Temp Pulse Resp B/P Pulse Ox O2 Delivery O2 Flow Rate FiO2 07/20/16 08:45 Ventilator 07/20/16 08:15 100 07/20/16 06:30 22 07/20/16 06:00 74 114/56 07/20/16 04:00 98.6 98.6 Labs: Laboratory Tests Test 07/19/16 11:57 07/19/16 16:05 07/19/16 17:09 07/19/16 21:50 Glucose (Fingerstick) 170mg/dL 183mg/dL Hemoglobin 8.1g/dL Prothrombin Time 17.0SEC Prothromb Time International Ratio 1.5 Heparin Anti-Xa Act, Unfractionated > 1.10IU/mL > 1.10IU/mL Test 07/19/16 23:58 07/20/16 03:45 07/20/16 05:58 07/20/16 09:20 Glucose (Fingerstick) 247mg/dL 314mg/dL White Blood Count 12.4x10^3/uL Red Blood Count 2.64x10^6/uL Hemoglobin 7.5g/dL Hematocrit 22.8% Mean Corpuscular Volume 87fL Mean Corpuscular Hemoglobin 29pg Mean Corpuscular Hemoglobin Concent 33g/dL Red Cell Distribution Width 14.8% Platelet Count 160x10^3/uL Prothrombin Time 15.5SEC Prothromb Time International Ratio 1.3 Heparin Anti-Xa Act, Unfractionated 0.42IU/mL Sodium Level 144mmol/L Potassium Level 3.7mmol/L Chloride Level 108mmol/L Carbon Dioxide Level 25mmol/L Anion Gap 11 Blood Urea Nitrogen 93mg/dL Creatinine 2.2mg/dL Estimated GFR (Cockcroft-Gault) 35.7 Glucose Level 296mg/dL Calcium Level 7.8mg/dL Phosphorus Level 5.7mg/dL Albumin 2.0g/dL O2 Saturation 92% Arterial Blood pH 7.34 Arterial Blood pCO2 at Patient Temp 45mmHg Arterial Blood pO2 at Patient Temp 74mmHg Arterial Blood HCO3 24mmol/L Arterial Blood Base Excess -2mmol/L FiO2 40 PE: GEN: intubated LUNGS: on CPAP HEART: RRR ABD: BS quiet, S/ND NEURO/PSYCH: awake A/P: Acute resp failure (intubated), s/p arrest, s/p cardiac cath, PE and DVT s/p TPA -off sedation, on CPAP trial -tolerating tube feeds w/ Dobhoff Anemia -s/p transfusions, Hgb stable 7.5 w/o obvious GI bleeding -on PPI drip, also Heparin Elevated LFTs - improved -likely shock liver, Hep panel negative -- Continue same per GI. SANDOR SARMIENTO Jul 20, 2016 10:10
--- NOTE | 2016-07-20 11:07 | PDOC ---
Renal-Progress Notes Subjective Notes Notes REMAINS INTUBATED History of Present Illness Hx of present illness STABLE Vitals Vitals Vital Signs Date Time Temp Pulse Resp B/P Pulse Ox O2 Delivery O2 Flow Rate FiO2 07/20/16 10:00 79 24 160/59 98 Ventilator 07/20/16 08:00 99.2 99.2 Weight Weight [ ] I.O. Intake and Output Intake and Output 07/20/16 07:00 Intake Total 3076 ml Output Total 1116 ml Balance 1960 ml IV Total 546 ml Tube Feeding 1383 ml Blood Product IV Normal Saline Flush 165 ml Other 982 ml Output Urine Total 1116 ml Labs Labs Laboratory Tests Test 07/19/16 11:57 07/19/16 16:05 07/19/16 17:09 07/19/16 21:50 Glucose (Fingerstick) 170mg/dL (70-99) 183mg/dL (70-99) Hemoglobin 8.1g/dL (13.0-17.5) Prothrombin Time 17.0SEC (11.7-14.0) Prothromb Time International Ratio 1.5 (0.8-1.1) Heparin Anti-Xa Act, Unfractionated > 1.10IU/mL (0.30-0.70) > 1.10IU/mL (0.30-0.70) Test 07/19/16 23:58 07/20/16 03:45 07/20/16 05:58 07/20/16 09:20 Glucose (Fingerstick) 247mg/dL (70-99) 314mg/dL (70-99) White Blood Count 12.4x10^3/uL (4.0-11.0) Red Blood Count 2.64x10^6/uL (4.30-5.70) Hemoglobin 7.5g/dL (13.0-17.5) Hematocrit 22.8% (39.0-53.0) Mean Corpuscular Volume 87fL (79-100) Mean Corpuscular Hemoglobin 29pg (25-35) Mean Corpuscular Hemoglobin Concent 33g/dL (31-37) Red Cell Distribution Width 14.8% (11.5-14.5) Platelet Count 160x10^3/uL (140-400) Prothrombin Time 15.5SEC (11.7-14.0) Prothromb Time International Ratio 1.3 (0.8-1.1) Heparin Anti-Xa Act, Unfractionated 0.42IU/mL (0.30-0.70) Sodium Level 144mmol/L (136-145) Potassium Level 3.7mmol/L (3.5-5.1) Chloride Level 108mmol/L (98-107) Carbon Dioxide Level 25mmol/L (21-32) Anion Gap 11 (6-14) Blood Urea Nitrogen 93mg/dL (8-26) Creatinine 2.2mg/dL (0.7-1.3) Estimated GFR (Cockcroft-Gault) 35.7 Glucose Level 296mg/dL (70-99) Calcium Level 7.8mg/dL (8.5-10.1) Phosphorus Level 5.7mg/dL (2.6-4.7) Albumin 2.0g/dL (3.4-5.0) O2 Saturation 92% (92-99) Arterial Blood pH 7.34 (7.35-7.45) Arterial Blood pCO2 at Patient Temp 45mmHg (35-46) Arterial Blood pO2 at Patient Temp 74mmHg (65-108) Arterial Blood HCO3 24mmol/L (21-28) Arterial Blood Base Excess -2mmol/L (-3-3) FiO2 40 Micro Micro Microbiology 07/15/16 Blood Culture - Preliminary, Resulted NO GROWTH AFTER 4 DAYS 07/14/16 Urine Culture - Final, Complete 07/14/16 Urine Culture Result 1 (MARÍA) - Final, Complete 07/14/16 Urine Culture Result 2 (MARÍA) - Final, Complete 07/14/16 Antimicrobic Susceptibility - Final, Complete Review of Systems Constitutional: yes: no symptom reported Physical Exam General Appearance: no apparent distress Respiratory: decreased breath sounds Heart: S1S2 Abdomen: soft, bowel sounds present Genitourinary: bladder flat Extremities: pulses present Neurology: other (SEDATED) Assessment Assessment IMP BASIM-WORSE TODAY WITH CR UP TO 2.2 RESP FAILURE ANGIOEDEMA MILD HYPOKALEMIA-RESOLVED MILD HYPERNATREMIA-BETTER PE ANEMIA PLAN OFF TPN AND TOLERATING TF TRIAL OF IVF'S LEAVE TEMP HD CATHETER IN PLACE FOR NOW SUPPORTIVE CARE WILL FOLLOW ERIKA IBARRA MD Jul 20, 2016 11:07
--- NOTE | 2016-07-20 11:14 | PDOC ---
PROGRESS NOTES Chief Complaint Chief Complaint Angioedema - angioedema, likely 2/2 to ACEI; self extubated 07/14/16 - resolved - s/p CP arrest (PEA) sec to Multiple bilateral PE (07/15) - Non-occlusive thrombus, R leg (07/15) - COPD exacerbation - Low TSH levels in a critically ill patient - DM2; insulin requiring - Oliguric Hyperkalemic renal failure - Metabolic acidosis s/p arrest - Dyslipidemia on statin - Hypotensive shock, resolved and off pressors - Acute respiratory failure - intubated again (07/15) secondary to code blue ( PEA # 2) History of Present Illness History of Present Illness Seen in ICU this AM. Intubated and sedated. Currently off all pressors; BP 114/ 56. Hgb 7.5 at this time. O2 Sat 100% on Vent: AC / / 550 Vf / 40% Fi02 / 5 PEEP. Pt off TPN and tolerating NG tube feeding. Discussed case with RN and Machine Tailer. Vitals Vitals Vital Signs Date Time Temp Pulse Resp B/P Pulse Ox O2 Delivery O2 Flow Rate FiO2 07/20/16 10:00 79 24 160/59 98 Ventilator 07/20/16 08:00 99.2 99.2 Physical Exam Physical Exam eyes- bilateral periorbital / subconjunctival edema General: Other (SEDATED) Heart: Regular rate, Normal S1, Normal S2, No murmurs, Gallops Lungs: Other (decrease bs) Abdomen: Normal bowel sounds, Soft, No tenderness, No hepatosplenomegaly, No masses Extremities: No clubbing, No cyanosis, No edema, Normal pulses, No tenderness/ swelling Skin: No rashes Labs LABS Laboratory Tests Test 07/19/16 11:57 07/19/16 16:05 07/19/16 17:09 07/19/16 21:50 Glucose (Fingerstick) 170mg/dL (70-99) 183mg/dL (70-99) Hemoglobin 8.1g/dL (13.0-17.5) Prothrombin Time 17.0SEC (11.7-14.0) Prothromb Time International Ratio 1.5 (0.8-1.1) Heparin Anti-Xa Act, Unfractionated > 1.10IU/mL (0.30-0.70) > 1.10IU/mL (0.30-0.70) Test 07/19/16 23:58 07/20/16 03:45 07/20/16 05:58 07/20/16 09:20 Glucose (Fingerstick) 247mg/dL (70-99) 314mg/dL (70-99) White Blood Count 12.4x10^3/uL (4.0-11.0) Red Blood Count 2.64x10^6/uL (4.30-5.70) Hemoglobin 7.5g/dL (13.0-17.5) Hematocrit 22.8% (39.0-53.0) Mean Corpuscular Volume 87fL (79-100) Mean Corpuscular Hemoglobin 29pg (25-35) Mean Corpuscular Hemoglobin Concent 33g/dL (31-37) Red Cell Distribution Width 14.8% (11.5-14.5) Platelet Count 160x10^3/uL (140-400) Prothrombin Time 15.5SEC (11.7-14.0) Prothromb Time International Ratio 1.3 (0.8-1.1) Heparin Anti-Xa Act, Unfractionated 0.42IU/mL (0.30-0.70) Sodium Level 144mmol/L (136-145) Potassium Level 3.7mmol/L (3.5-5.1) Chloride Level 108mmol/L (98-107) Carbon Dioxide Level 25mmol/L (21-32) Anion Gap 11 (6-14) Blood Urea Nitrogen 93mg/dL (8-26) Creatinine 2.2mg/dL (0.7-1.3) Estimated GFR (Cockcroft-Gault) 35.7 Glucose Level 296mg/dL (70-99) Calcium Level 7.8mg/dL (8.5-10.1) Phosphorus Level 5.7mg/dL (2.6-4.7) Albumin 2.0g/dL (3.4-5.0) O2 Saturation 92% (92-99) Arterial Blood pH 7.34 (7.35-7.45) Arterial Blood pCO2 at Patient Temp 45mmHg (35-46) Arterial Blood pO2 at Patient Temp 74mmHg (65-108) Arterial Blood HCO3 24mmol/L (21-28) Arterial Blood Base Excess -2mmol/L (-3-3) FiO2 40 Review of Systems Review of Systems Largely unobtainable due to sedation afebrile + bilateral periorbital / subconjunctival edema Assessment and Plan Assessmemt and Plan Problems Medical Problems: (1) COPD exacerbation Status: Acute (2) Hyperglycemia Status: Acute ASSESSMENT: - angioedema likely 2/2 ACEI; self extubated 07/14/16 - resolved - s/p CP arrest (PEA) sec to Multiple bilateral PE (07/15) - Non-occlusive thrombus, R leg (07/15) - COPD exacerbation - Low TSH levels in a critically ill patient - DM2; insulin requiring - Oliguric Hyperkalemic renal failure - Metabolic acidosis s/p arrest - Dyslipidemia on statin - Hypotensive shock, resolved and off pressors - Acute respiratory failure - intubated again (07/15) secondary to code blue ( PEA # 2) PLAN: - repeat daily labs; Hgb 7.5 - will transfuse 1 unit pRBC - TPN discontinued, cont NG tube feeding - appreciate palliative care on the case - cont Levemir, Novolog, and high dose SSI - K+ now 3.7 with replacement - patient remains critically ill; Full code for now - appreciate all subspecialists on the case - cont PRN IVF - cont vent support per pulmonology recommendation - cont steroids, begin taper; cont Atrovent per pulm - discussed case with RN, pulmonology Total time 31 minutes Problems: Comment Review of Relevant I have reviewed the following items valerie (where applicable) has been applied. Labs Laboratory Tests Test 07/18/16 11:35 07/18/16 12:00 07/18/16 13:16 07/18/16 14:23 Glucose (Fingerstick) 398mg/dL (70-99) 393mg/dL (70-99) 370mg/dL (70-99) White Blood Count 10.8x10^3/uL (4.0-11.0) Red Blood Count 2.93x10^6/uL (4.30-5.70) Hemoglobin 8.3g/dL (13.0-17.5) Hematocrit 25.1% (39.0-53.0) Mean Corpuscular Volume 86fL (79-100) Mean Corpuscular Hemoglobin 28pg (25-35) Mean Corpuscular Hemoglobin Concent 33g/dL (31-37) Red Cell Distribution Width 15.0% (11.5-14.5) Platelet Count 162x10^3/uL (140-400) Test 07/18/16 15:37 07/18/16 18:10 07/18/16 19:25 07/18/16 20:29 Glucose (Fingerstick) 269mg/dL (70-99) 159mg/dL (70-99) 155mg/dL (70-99) 178mg/dL (70-99) Test 07/18/16 21:33 07/18/16 22:25 07/18/16 23:28 07/19/16 00:36 Glucose (Fingerstick) 114mg/dL (70-99) 127mg/dL (70-99) 92mg/dL (70-99) 80mg/dL (70-99) Test 07/19/16 01:33 07/19/16 02:32 07/19/16 03:33 07/19/16 04:28 Glucose (Fingerstick) 80mg/dL (70-99) 83mg/dL (70-99) 75mg/dL (70-99) 98mg/dL (70-99) Test 07/19/16 05:25 07/19/16 05:26 07/19/16 06:28 07/19/16 07:36 White Blood Count 10.2x10^3/uL (4.0-11.0) Red Blood Count 2.62x10^6/uL (4.30-5.70) Hemoglobin 7.4g/dL (13.0-17.5) Hematocrit 22.3% (39.0-53.0) Mean Corpuscular Volume 85fL (79-100) Mean Corpuscular Hemoglobin 28pg (25-35) Mean Corpuscular Hemoglobin Concent 33g/dL (31-37) Red Cell Distribution Width 14.7% (11.5-14.5) Platelet Count 145x10^3/uL (140-400) Neutrophils (%) (Auto) 84% (31-73) Lymphocytes (%) (Auto) 6% (24-48) Monocytes (%) (Auto) 10% (0-9) Eosinophils (%) (Auto) 0% (0-3) Basophils (%) (Auto) 0% (0-3) Neutrophils # (Auto) 8.5x10^3uL (1.8-7.7) Lymphocytes # (Auto) 0.6x10^3/uL (1.0-4.8) Monocytes # (Auto) 1.0x10^3/uL (0.0-1.1) Eosinophils # (Auto) 0.0x10^3/uL (0.0-0.7) Basophils # (Auto) 0.0x10^3/uL (0.0-0.2) Sodium Level 148mmol/L (136-145) Potassium Level 3.2mmol/L (3.5-5.1) Chloride Level 113mmol/L (98-107) Carbon Dioxide Level 25mmol/L (21-32) Anion Gap 10 (6-14) Blood Urea Nitrogen 76mg/dL (8-26) Creatinine 1.7mg/dL (0.7-1.3) Estimated GFR (Cockcroft-Gault) 48.0 BUN/Creatinine Ratio 45 (6-20) Glucose Level 128mg/dL (70-99) Calcium Level 7.8mg/dL (8.5-10.1) Magnesium Level 2.4mg/dL (1.8-2.4) Total Bilirubin 0.2mg/dL (0.2-1.0) Aspartate Amino Transf (AST/SGOT) 206U/L (15-37) Alanine Aminotransferase (ALT/SGPT) 475U/L (16-63) Alkaline Phosphatase 108U/L (46-116) Total Protein 5.0g/dL (6.4-8.2) Albumin 1.9g/dL (3.4-5.0) Albumin/Globulin Ratio 0.6 (1.0-1.7) Hepatitis A IgM Antibody Negative (Negative) Hepatitis B Surface Antigen Negative (Negative) Hepatitis B Core IgM Antibody Negative (Negative) Hepatitis C Antibody 0.1s/co ratio (0.0-0.9) Glucose (Fingerstick) 118mg/dL (70-99) 86mg/dL (70-99) 120mg/dL (70-99) Test 07/19/16 07:50 07/19/16 08:43 07/19/16 09:48 07/19/16 11:57 O2 Saturation 96% (92-99) Arterial Blood pH 7.42 (7.35-7.45) Arterial Blood pCO2 at Patient Temp 31mmHg (35-46) Arterial Blood pO2 at Patient Temp 94mmHg (65-108) Arterial Blood HCO3 20mmol/L (21-28) Arterial Blood Base Excess -4mmol/L (-3-3) FiO2 40 Glucose (Fingerstick) 111mg/dL (70-99) 147mg/dL (70-99) 170mg/dL (70-99) Test 07/19/16 16:05 07/19/16 17:09 07/19/16 21:50 07/19/16 23:58 Hemoglobin 8.1g/dL (13.0-17.5) Prothrombin Time 17.0SEC (11.7-14.0) Prothromb Time International Ratio 1.5 (0.8-1.1) Heparin Anti-Xa Act, Unfractionated > 1.10IU/mL (0.30-0.70) > 1.10IU/mL (0.30-0.70) Glucose (Fingerstick) 183mg/dL (70-99) 247mg/dL (70-99) Test 07/20/16 03:45 07/20/16 05:58 07/20/16 09:20 White Blood Count 12.4x10^3/uL (4.0-11.0) Red Blood Count 2.64x10^6/uL (4.30-5.70) Hemoglobin 7.5g/dL (13.0-17.5) Hematocrit 22.8% (39.0-53.0) Mean Corpuscular Volume 87fL (79-100) Mean Corpuscular Hemoglobin 29pg (25-35) Mean Corpuscular Hemoglobin Concent 33g/dL (31-37) Red Cell Distribution Width 14.8% (11.5-14.5) Platelet Count 160x10^3/uL (140-400) Prothrombin Time 15.5SEC (11.7-14.0) Prothromb Time International Ratio 1.3 (0.8-1.1) Heparin Anti-Xa Act, Unfractionated 0.42IU/mL (0.30-0.70) Sodium Level 144mmol/L (136-145) Potassium Level 3.7mmol/L (3.5-5.1) Chloride Level 108mmol/L (98-107) Carbon Dioxide Level 25mmol/L (21-32) Anion Gap 11 (6-14) Blood Urea Nitrogen 93mg/dL (8-26) Creatinine 2.2mg/dL (0.7-1.3) Estimated GFR (Cockcroft-Gault) 35.7 Glucose Level 296mg/dL (70-99) Calcium Level 7.8mg/dL (8.5-10.1) Phosphorus Level 5.7mg/dL (2.6-4.7) Albumin 2.0g/dL (3.4-5.0) Glucose (Fingerstick) 314mg/dL (70-99) O2 Saturation 92% (92-99) Arterial Blood pH 7.34 (7.35-7.45) Arterial Blood pCO2 at Patient Temp 45mmHg (35-46) Arterial Blood pO2 at Patient Temp 74mmHg (65-108) Arterial Blood HCO3 24mmol/L (21-28) Arterial Blood Base Excess -2mmol/L (-3-3) FiO2 40 Laboratory Tests Test 07/19/16 11:57 07/19/16 16:05 07/19/16 17:09 07/19/16 21:50 Glucose (Fingerstick) 170mg/dL (70-99) 183mg/dL (70-99) Hemoglobin 8.1g/dL (13.0-17.5) Prothrombin Time 17.0SEC (11.7-14.0) Prothromb Time International Ratio 1.5 (0.8-1.1) Heparin Anti-Xa Act, Unfractionated > 1.10IU/mL (0.30-0.70) > 1.10IU/mL (0.30-0.70) Test 07/19/16 23:58 07/20/16 03:45 07/20/16 05:58 07/20/16 09:20 Glucose (Fingerstick) 247mg/dL (70-99) 314mg/dL (70-99) White Blood Count 12.4x10^3/uL (4.0-11.0) Red Blood Count 2.64x10^6/uL (4.30-5.70) Hemoglobin 7.5g/dL (13.0-17.5) Hematocrit 22.8% (39.0-53.0) Mean Corpuscular Volume 87fL (79-100) Mean Corpuscular Hemoglobin 29pg (25-35) Mean Corpuscular Hemoglobin Concent 33g/dL (31-37) Red Cell Distribution Width 14.8% (11.5-14.5) Platelet Count 160x10^3/uL (140-400) Prothrombin Time 15.5SEC (11.7-14.0) Prothromb Time International Ratio 1.3 (0.8-1.1) Heparin Anti-Xa Act, Unfractionated 0.42IU/mL (0.30-0.70) Sodium Level 144mmol/L (136-145) Potassium Level 3.7mmol/L (3.5-5.1) Chloride Level 108mmol/L (98-107) Carbon Dioxide Level 25mmol/L (21-32) Anion Gap 11 (6-14) Blood Urea Nitrogen 93mg/dL (8-26) Creatinine 2.2mg/dL (0.7-1.3) Estimated GFR (Cockcroft-Gault) 35.7 Glucose Level 296mg/dL (70-99) Calcium Level 7.8mg/dL (8.5-10.1) Phosphorus Level 5.7mg/dL (2.6-4.7) Albumin 2.0g/dL (3.4-5.0) O2 Saturation 92% (92-99) Arterial Blood pH 7.34 (7.35-7.45) Arterial Blood pCO2 at Patient Temp 45mmHg (35-46) Arterial Blood pO2 at Patient Temp 74mmHg (65-108) Arterial Blood HCO3 24mmol/L (21-28) Arterial Blood Base Excess -2mmol/L (-3-3) FiO2 40 Microbiology 07/15/16 Blood Culture - Preliminary, Resulted NO GROWTH AFTER 4 DAYS 07/14/16 Urine Culture - Final, Complete 07/14/16 Urine Culture Result 1 (MARÍA) - Final, Complete 07/14/16 Urine Culture Result 2 (MARÍA) - Final, Complete 07/14/16 Antimicrobic Susceptibility - Final, Complete Medications Current Medications Albuterol/ Ipratropium (Duoneb) 6 ml 1X ONCE NEB Last administered on 12:34; Start 07/12/16 at 12:30; Stop 07/12/16 at 12:31; Status DC Prednisone 60 mg 60 mg 1X ONCE PO Last administered on 07/12/16 12:40; Start 07/12/16 at 12:30; Stop 07/12/16 at 12:31; Status DC Sodium Chloride (Iv Sodium Chloride 0.9% 1000ml Bag) 1,000 ml @ 1,000 mls/hr 1X ONCE IV Last administered on 07/12/16 13:12; Start 07/12/16 at 13:15; Stop 07/12/16 at 14:14; Status DC Insulin Human Regular (Novolin R Vial) 10 unit 1X ONCE IV Last administered on 07/12/16 13:16; Start 07/12/16 at 13:15; Stop 07/12/16 at 13:16; Status DC Diphenhydramine HCl (Benadryl) 50 mg STK-MED ONCE .ROUTE ; Start 07/12/16 at 14: 55; Stop 07/12/16 at 14:56; Status DC Diphenhydramine HCl (Benadryl) 50 mg 1X ONCE IVP Last administered on 15:15; Start 07/12/16 at 15:15; Stop 07/12/16 at 15:16; Status DC Atorvastatin Calcium (Lipitor) 40 mg HS PO Last administered on 07/19/16 22:20 ; Start 07/12/16 at 21:00 Diltiazem HCl (Cardizem 24hr Cd) 240 mg DAILY PO ; Start 07/12/16 at 16:30; Stop 07/13/16 at 17:18; Status DC Insulin Aspart (Novolog) 10 units TIDAC SQ ; Start 07/12/16 at 16:30; Stop 07/12 at 16:30; Status DC Insulin Detemir (Levemir) 20 units QHS SQ ; Start 07/12/16 at 21:00; Stop at 21:00; Status DC Promethazine HCl/ Codeine (Phenergan With Codeine) 5 ml QID PO ; Start 07/12/16 at 17:00; Stop 07/13/16 at 17:18; Status DC Non-Formulary Medication 2 puff BID IH ; Start 07/12/16 at 21:00; Status UNV Non-Formulary Medication 2.5 gm DAILY IH ; Start 07/13/16 at 09:00; Status UNV Budesonide (Pulmicort) 0.5 mg RTBID NEB Last administered on 07/13/16 07:30; Start 07/12/16 at 20:00; Stop 07/13/16 at 11:27; Status DC Albuterol/ Ipratropium (Duoneb) 3 ml RTQID NEB Last administered on 07/16/16 07:47; Start 07/12/16 at 20:00; Stop 07/16/16 at 08:38; Status DC Methylprednisolone Sodium Succinate (Solu-Medrol 40mg Vial) 60 mg 1X ONCE IV Last administered on 07/12/16 16:06; Start 07/12/16 at 16:30; Stop 07/12/16 at 16:31; Status DC Methylprednisolone Sodium Succinate (Solu-Medrol 40mg Vial) 60 mg DAILY IV ; Start 07/13/16 at 09:00; Stop 07/13/16 at 09:00; Status DC Pantoprazole Sodium (Protonix Vial) 40 mg DAILY IVP Last administered on 08:43; Start 07/13/16 at 09:00; Stop 07/17/16 at 20:37; Status DC Diphenhydramine HCl 25 mg 25 mg PRN Q6HRS PRN IVP ANAPHYLAXIS Last administered on 07/12/16 16:06; Start 07/12/16 at 16:00 Sodium Chloride (Iv Sodium Chloride 0.9% 1000ml Bag) 1,000 ml @ 150 mls/hr Q6H40M IV Last administered on 07/14/16 01:21; Start 07/12/16 at 16:30; Stop 07/14/16 at 09:31; Status DC Albuterol/ Ipratropium (Duoneb) 3 ml QID NEB ; Start 07/12/16 at 17:00; Status UNV Albuterol Sulfate (Ventolin Neb Soln) 2.5 mg PRN Q2HR PRN NEB SHORTNESS OF BREATH Last administered on 07/19/16 11:20; Start 07/12/16 at 16:00 Insulin Aspart (Novolog) 0-9 UNITS QID SQ Last administered on 07/14/16 08:37 ; Start 07/12/16 at 17:00; Stop 07/14/16 at 09:31; Status DC Dextrose 12.5 gm PRN Q15MIN PRN IV SEE COMMENTS; Start 07/12/16 at 16:00; Stop 07/15/16 at 12:46; Status DC Insulin Detemir (Levemir) 15 units QHS SQ ; Start 07/12/16 at 21:00; Stop at 21:00; Status DC Enoxaparin Sodium (Lovenox 40mg Syringe) 40 mg DAILY SQ Last administered on 08:54; Start 07/12/16 at 16:30; Stop 07/15/16 at 14:28; Status DC Insulin Detemir (Levemir) 20 units QHS SQ Last administered on 07/12/16 23:49 ; Start 07/12/16 at 21:00; Stop 07/13/16 at 15:18; Status DC Succinylcholine Chloride 200 mg 200 mg STK-MED ONCE .ROUTE ; Start 07/12/16 at 17:46; Stop 07/12/16 at 17:47; Status DC Propofol (Diprivan) 100 ml @ As Directed STK-MED ONCE IV ; Start 07/12/16 at 17 :46; Stop 07/12/16 at 17:47; Status DC Lidocaine HCl 100 mg STK-MED ONCE .ROUTE ; Start 07/12/16 at 18:02; Stop at 18:03; Status DC Ketamine HCl 500 mg 1X ONCE IV ; Start 07/12/16 at 18:30; Stop 07/12/16 at 18: 31; Status DC Midazolam HCl (Versed) 5 mg STK-MED ONCE .ROUTE ; Start 07/12/16 at 18:14; Stop 07/12/16 at 18:15; Status DC Midazolam HCl (Versed) 2 mg 1X ONCE IV ; Start 07/12/16 at 18:30; Stop at 18:31; Status DC Glycopyrrolate (Robinul) 1 mg 1X ONCE IV ; Start 07/12/16 at 18:30; Stop at 18:31; Status DC Oxymetazoline HCl (Afrin) 2 spray 1X ONCE NS ; Start 07/12/16 at 18:30; Stop at 18:31; Status DC Lidocaine HCl 30 ml STK-MED ONCE .ROUTE ; Start 07/12/16 at 18:19; Stop at 18:20; Status DC Vecuronium [place] 6 mg 6 mg PRN Q4HRS PRN IV ANXIETY / AGITATION Last administered on 07/12/16 19:55; Start 07/12/16 at 19:00; Stop 07/15/16 at 07:58 ; Status DC Propofol (Diprivan) 100 ml @ 0 mls/hr CONT PRN IV SEE I/O RECORD Last administered on 07/14/16 13:42; Start 07/12/16 at 19:00; Stop 07/15/16 at 07:58 ; Status DC Insulin Aspart 10 units 10 units 1X ONCE SQ Last administered on 07/12/16 19: 41; Start 07/12/16 at 19:45; Stop 07/12/16 at 19:46; Status DC Vecuronium [place] 100 mg/ Dextrose 100 ml @ 0 mls/hr CONT PRN IV SEE I/O RECORD Last administered on 07/13/16 20:48; Start 07/12/16 at 21:00; Stop 07/14 at 09:31; Status DC Fentanyl Citrate (Fentanyl 600 Mcg/30 ml TOBACCO STRIPPER HAND) 30 ml @ 0 mls/hr CONT PRN IV PROTOCOL Last administered on 07/14/16 09:33; Start 07/12/16 at 22:00; Stop at 07:58; Status DC Chlorhexidine Gluconate (Peridex) 15 ml BID MM Last administered on 07/20/16 09:35; Start 07/13/16 at 09:00 Methylprednisolone Sodium Succinate (Solu-Medrol 125mg Vial) 125 mg BID IV Last administered on 07/14/16 21:02; Start 07/13/16 at 09:00; Stop 07/15/16 at 07:58; Status DC Rocuronium [place] (Zemuron) 50 mg STK-MED ONCE .ROUTE ; Start 07/12/16 at 15:00 ; Stop 07/13/16 at 08:54; Status DC Glycopyrrolate (Robinul) 1 mg STK-MED ONCE .ROUTE ; Start 07/12/16 at 15:00; Stop 07/13/16 at 08:54; Status DC Lidocaine HCl 30 ml STK-MED ONCE .ROUTE ; Start 07/12/16 at 18:00; Stop at 09:05; Status DC Midazolam HCl (Versed) 5 mg STK-MED ONCE .ROUTE ; Start 07/12/16 at 18:00; Stop 07/13/16 at 09:05; Status DC Propofol (Diprivan) 1,000 mg STK-MED ONCE IV ; Start 07/12/16 at 18:00; Stop at 09:05; Status DC Succinylcholine Chloride (Anectine) 200 mg STK-MED ONCE .ROUTE ; Start 07/12/16 at 18:00; Stop 07/13/16 at 09:05; Status DC Multi-Ingred Cream/Lotion/Oil/ Oint (Artificial Tears Eye Oint) 1 margie PRN Q1HR PRN OU DRY EYE Last administered on 07/13/16 15:45; Start 07/13/16 at 11:00 Ketamine HCl 500 mg STK-MED ONCE .ROUTE ; Start 07/12/16 at 18:30; Stop at 12:05; Status DC Insulin Aspart (Novolog) 10 units 1X STAT SQ Last administered on 07/13/16 12 :36; Start 07/13/16 at 12:17; Stop 07/13/16 at 12:20; Status DC Insulin Aspart (Novolog) 10 units 1X ONCE SQ Last administered on 07/13/16 14 :31; Start 07/13/16 at 14:30; Stop 07/13/16 at 14:31; Status DC Insulin Detemir (Levemir) 40 units QHS SQ Last administered on 07/13/16 20:50 ; Start 07/13/16 at 21:00; Stop 07/14/16 at 09:31; Status DC Benzocaine (Hurricaine One) 1 spray STK-MED ONCE .ROUTE ; Start 07/12/16 at 12: 00; Stop 07/13/16 at 16:00; Status DC Lidocaine HCl 5 margie 5 margie STK-MED ONCE TP ; Start 07/12/16 at 12:00; Stop at 16:00; Status DC Insulin Human Regular/Sodium Chloride (Novolin R Vial/ Iv Normal Saline 150ml) 151.5 ml @ 0 mls/hr CONT PRN IV SEE I/O RECORD Last administered on 07/14/16 10:01; Start 07/14/16 at 09:30; Stop 07/15/16 at 07:58; Status DC Info 1 each 1 each PRN DAILY PRN MC SEE COMMENTS Last administered on 08:27; Start 07/14/16 at 09:30; Stop 07/19/16 at 16:30; Status DC Magnesium Sulfate/ Dextrose 50 ml @ 25 mls/hr PRN DAILY PRN IV for Mag < 1.7 on am labs; Start 07/14/16 at 11:15; Stop 07/15/16 at 07:58; Status DC Sodium Chloride 500 ml @ 500 mls/hr QID PRN IV UO< 30cc/hr over previous 6hrs ; Start 07/14/16 at 11:15; Stop 07/14/16 at 11:26; Status DC Sodium Chloride 500 ml @ 500 mls/hr PRN QID PRN IV UO< 30cc/hr over previous 6hrs Last administered on 07/16/16 10:00; Start 07/14/16 at 11:26 Ceftriaxone Sodium 1 gm/ Sodium Chloride 50 ml @ 100 mls/hr Q24H IV Last administered on 07/19/16 12:25; Start 07/14/16 at 12:00; Stop 07/20/16 at 12:29 Sodium Chloride/ Magnesium Sulfate/ Calcium Gluconate/ Multivitamins/ Chromium/ Copper/ Manganese/Seleni/ Zn/Total Parenteral Nutrition/Amino Acids/Dextrose ( Sodium Chloride/ Infuvite Adult/ Multitrace-5 Conc/ Tpn - Tpn Fluid/ Trophamine / Dextrose 70%-Water Iv Soln) 1,512 ml @ 63 mls/hr TPN CONT IV Last administered on 07/14/16 22:29; Start 07/14/16 at 22:00; Stop 07/15/16 at 21:59 ; Status DC Hydralazine HCl (Apresoline) 10 mg PRN Q4HRS PRN IVP ELEVATED BP, SEE COMMENTS Last administered on 07/18/16 10:07; Start 07/14/16 at 22:30 Methylprednisolone Sodium Succinate (Solu-Medrol 125mg Vial) 125 mg DAILY IV Last administered on 07/15/16 08:55; Start 07/15/16 at 09:00; Stop 07/16/16 at 08:35; Status DC Insulin Aspart (Novolog) 0-9 UNITS TIDWMEALS SQ Last administered on 07/15/16 16:16; Start 07/15/16 at 08:00; Stop 07/16/16 at 07:16; Status DC Dextrose 12.5 gm PRN Q15MIN PRN IV SEE COMMENTS; Start 07/15/16 at 08:00; Stop 07/19/16 at 10:53; Status DC Insulin Detemir (Levemir) 20 units QHS SQ Last administered on 07/15/16 21:48 ; Start 07/15/16 at 21:00; Stop 07/16/16 at 07:16; Status DC Insulin Aspart (Novolog) 10 units TIDAC SQ ; Start 07/15/16 at 11:30; Stop 07/16 at 07:16; Status DC Sodium Polystyrene Sulfonate (Kayexalate) 30 gm 1X ONCE PO ; Start 07/15/16 at 08:00; Stop 07/15/16 at 08:08; Status DC Hydrochlorothiazide (Microzide) 12.5 mg DAILY PO ; Start 07/15/16 at 09:00; Stop 07/16/16 at 07:39; Status DC Isosorbide Mononitrate (Imdur) 120 mg DAILY PO ; Start 07/15/16 at 09:00; Stop 07/15/16 at 09:00; Status DC Diltiazem HCl (Cardizem 24hr Cd) 240 mg DAILY PO ; Start 07/15/16 at 09:00; Stop 07/16/16 at 07:39; Status DC Guaifenesin (Mucinex) 600 mg BID PO ; Start 07/15/16 at 09:00; Stop 07/16/16 at 07:39; Status DC Mupirocin (Bactroban) 1 margie BID NS Last administered on 07/20/16 09:35; Start 07/15/16 at 09:00 Isosorbide Mononitrate (Imdur) 120 mg DAILY PO ; Start 07/15/16 at 09:00; Stop 07/16/16 at 07:39; Status DC Sodium Bicarbonate 50 meq 1X ONCE IV Last administered on 07/15/16 15:22; Start 07/15/16 at 10:45; Stop 07/15/16 at 10:46; Status DC Sodium Bicarbonate 50 meq 50 meq STK-MED ONCE .ROUTE ; Start 07/15/16 at 10:34; Stop 07/15/16 at 10:35; Status DC Dopamine HCl/ Dextrose 250 ml @ As Directed STK-MED ONCE IV ; Start 07/15/16 at 10:37; Stop 07/15/16 at 10:38; Status DC Midazolam HCl (Versed) 5 mg STK-MED ONCE .ROUTE ; Start 07/15/16 at 10:41; Stop 07/15/16 at 10:42; Status DC Iohexol 100 ml 100 ml STK-MED ONCE .ROUTE ; Start 07/15/16 at 10:45; Stop at 10:46; Status DC Heparin Sodium/ Sodium Chloride 1,500 ml @ As Directed STK-MED ONCE .ROUTE ; Start 07/15/16 at 10:45; Stop 07/15/16 at 10:46; Status DC Lidocaine HCl 20 ml 20 ml STK-MED ONCE .ROUTE ; Start 07/15/16 at 10:45; Stop at 10:46; Status DC Dopamine HCl/ Dextrose 250 ml @ 16.255 mls/ hr CONT PRN IV SEE I/O RECORD Last administered on 07/16/16 23:10; Start 07/15/16 at 11:00 Sodium Chloride 1,000 ml @ 1,000 mls/hr 1X ONCE IV Last administered on 11:00; Start 07/15/16 at 11:00; Stop 07/15/16 at 11:59; Status DC Norepinephrine Bitartrate/Sodium Chloride (Levophed Vial/ Iv Sodium Chloride 0.9 % 250ml) 258 ml @ 0 mls/hr CONT PRN IV SEE I/O RECORD Last administered on 07/17 00:51; Start 07/15/16 at 11:00 Midazolam HCl (Versed) 5 mg STK-MED ONCE .ROUTE ; Start 07/15/16 at 10:54; Stop 07/15/16 at 10:55; Status DC Fentanyl Citrate (Fentanyl 2ml Vial) 100 mcg STK-MED ONCE .ROUTE ; Start at 11:02; Stop 07/15/16 at 11:03; Status DC Vecuronium [place] 10 mg 10 mg STK-MED ONCE IV ; Start 07/15/16 at 11:03; Stop 07/15/16 at 11:04; Status DC Midazolam HCl (Versed 100mg/ 100ml Premix) 100 ml @ As Directed STK-MED ONCE IV ; Start 07/15/16 at 11:03; Stop 07/15/16 at 11:04; Status DC Iohexol (Omnipaque 300 Mg/ml) 112 ml 1X ONCE IART Last administered on 11:56; Start 07/15/16 at 12:00; Stop 07/15/16 at 12:01; Status DC Lidocaine HCl 10 ml 1X ONCE IJ Last administered on 07/15/16 11:57; Start at 12:00; Stop 07/15/16 at 12:01; Status DC Heparin Sodium/ Sodium Chloride 1000 unit 1,000 unit 1X ONCE IART ; Start 07/15 at 12:00; Stop 07/15/16 at 12:01; Status DC Sodium Chloride/ Magnesium Sulfate/ Calcium Gluconate/ Multivitamins/ Chromium/ Copper/ Manganese/Seleni/ Zn/Total Parenteral Nutrition/Amino Acids/Dextrose ( Sodium Chloride/ Infuvite Adult/ Multitrace-5 Conc/ Tpn - Tpn Fluid/ Trophamine / Dextrose 70%-Water Iv Soln) 1,512 ml @ 63 mls/hr TPN CONT IV Last administered on 07/15/16 21:27; Start 07/15/16 at 22:00; Stop 07/16/16 at 21:59 ; Status DC Iohexol (Omnipaque 300 Mg/ml) 75 ml 1X ONCE IV Last administered on 07/15/16 13:43; Start 07/15/16 at 13:15; Stop 07/15/16 at 13:16; Status DC Info (Do NOT chart on this entry -- for MONITORING) 1 each PRN DAILY PRN MC SEE COMMENTS; Start 07/15/16 at 13:15; Stop 07/17/16 at 13:14; Status DC Heparin Sodium (Porcine) 7000 unit 7,000 unit 1X ONCE IV Last administered on 07/15/16 15:27; Start 07/15/16 at 14:45; Stop 07/15/16 at 14:46; Status DC Heparin Sodium/ Dextrose 500 ml @ 0 mls/hr CONT PRN IV SEE I/O RECORD Last administered on 07/17/16 18:41; Start 07/15/16 at 14:30; Stop 07/18/16 at 10:21 ; Status DC Heparin Sodium (Porcine) 2,600 unit PRN Q6HRS PRN IV FOR UFH LEVEL LESS THAN 0.2; Start 07/15/16 at 14:30; Stop 07/18/16 at 10:21; Status DC Heparin Sodium (Porcine) 1,300 unit PRN Q6HRS PRN IV FOR UFH LEVEL 0.2 - 0.29; Start 07/15/16 at 14:30; Stop 07/18/16 at 10:21; Status DC Warfarin Sodium (Coumadin Per Pharmacy) 1 each PRN DAILY PRN MC PER PROTOCOL; Start 07/15/16 at 14:30; Stop 07/15/16 at 14:30; Status DC Sodium Bicarbonate 50 meq 50 meq 1X ONCE IV Last administered on 07/15/16 16: 30; Start 07/15/16 at 16:30; Stop 07/15/16 at 16:34; Status DC Alteplase, Recombinant (Activase) 100 ml @ 50 mls/hr 1X ONCE IV Last administered on 07/15/16 17:30; Start 07/15/16 at 17:30; Stop 07/15/16 at 19:29 ; Status DC Fentanyl Citrate (Fentanyl 2ml Vial) 25 mcg PRN Q1HR PRN IV COMM; Start at 22:30; Stop 07/16/16 at 07:17; Status DC Fentanyl Citrate (Fentanyl 2ml Vial) 50 mcg PRN Q1HR PRN IV COMM Last administered on 07/16/16 05:30; Start 07/15/16 at 22:30; Stop 07/16/16 at 07:17 ; Status DC Scopolamine (Transderm-Scop) 1 patch Q3DAYS TD Last administered on 07/18/16 09:55; Start 07/18/16 at 09:00 Scopolamine 1 patch 1 patch ONCE ONCE TD ; Start 07/15/16 at 23:30; Stop at 23:31; Status DC Sodium Chloride 1,000 ml @ 1,000 mls/hr 1X ONCE IV Last administered on 02:38; Start 07/16/16 at 01:00; Stop 07/16/16 at 01:59; Status DC Midazolam HCl 100 ml @ As Directed STK-MED ONCE IV ; Start 07/16/16 at 01:00; Stop 07/16/16 at 01:01; Status DC Midazolam HCl 100 ml @ 0 mls/hr CONT PRN IV SEE I/O RECORD Last administered on 07/19/16 07:52; Start 07/16/16 at 01:15 Vasopressin 40 unit/Dextrose 102 ml @ 6 mls/hr CONT PRN IV SEE I/O RECORD Last administered on 07/17/16 13:33; Start 07/16/16 at 05:00 Insulin Human Regular 150 unit/ Sodium Chloride 151.5 ml @ 0 mls/hr CONT PRN IV SEE I/O RECORD Last administered on 07/17/16 02:26; Start 07/16/16 at 05:00 ; Stop 07/17/16 at 10:10; Status DC Fentanyl Citrate (Fentanyl 600 Mcg/30 ml TOBACCO STRIPPER HAND) 30 ml @ 0 mls/hr CONT PRN IV PROTOCOL Last administered on 07/19/16 06:15; Start 07/16/16 at 07:15 Vecuronium [place] (Norcuron Bolus) 10 mg STK-MED ONCE IV ; Start 07/15/16 at 11 :00; Stop 07/16/16 at 08:06; Status DC Fentanyl Citrate (Fentanyl 2ml Vial) 100 mcg STK-MED ONCE .ROUTE ; Start at 11:00; Stop 07/16/16 at 08:06; Status DC Midazolam HCl (Versed) 10 mg STK-MED ONCE .ROUTE ; Start 07/15/16 at 11:00; Stop 07/16/16 at 08:06; Status DC Dopamine HCl/ Dextrose 400 mg STK-MED ONCE IV ; Start 07/15/16 at 11:00; Stop at 08:06; Status DC Sodium Bicarbonate 50 meq STK-MED ONCE .ROUTE ; Start 07/15/16 at 11:00; Stop at 08:06; Status DC Hydrocortisone Sodium Succinate (Solu-Cortef) 100 mg Q8HRS IV Last administered on 07/19/16 05:50; Start 07/16/16 at 09:00; Stop 07/19/16 at 09:30 ; Status DC Sodium Polystyrene Sulfonate 30 gm 30 gm 1X ONCE PO Last administered on 08:41; Start 07/16/16 at 08:30; Stop 07/16/16 at 08:34; Status DC Albumin Human (Plasmanate) 500 ml @ 125 mls/hr PRN Q6HRS PRN IV for CVP < 10; MAP < 65 Last administered on 07/17/16 08:12; Start 07/16/16 at 08:30 Sodium Bicarbonate 50 meq 1X ONCE IV Last administered on 07/16/16 08:41; Start 07/16/16 at 08:45; Stop 07/16/16 at 08:46; Status DC Info (Anti-Coagulation Monitoring By Pharmacy) 1 each PRN DAILY PRN MC SEE COMMENTS; Start 07/16/16 at 08:45; Status Cancel Ipratropium [place] (Atrovent) 0.5 mg RTQID NEB Last administered on 07/20/16 08:39; Start 07/16/16 at 12:00 Lidocaine/Sodium Bicarbonate (Buffered Lidocaine 1%) 3 ml 1X ONCE IJ Last administered on 07/16/16 10:43; Start 07/16/16 at 09:15; Stop 07/16/16 at 09:16 ; Status DC Heparin Sodium/ Sodium Chloride 60 unit 1X ONCE IV Last administered on 10:44; Start 07/16/16 at 09:15; Stop 07/16/16 at 09:16; Status DC Heparin Sodium (Porcine) 2500 unit 2,500 unit 1X ONCE INT CAT Last administered on 07/16/16 10:44; Start 07/16/16 at 09:15; Stop 07/16/16 at 09:16 ; Status DC Sodium Chloride 40 meq/Sodium Acetate 40 meq/ Magnesium Sulfate 8 meq/Calcium Gluconate 5 meq/ Multivitamins 10 ml/Chromium/ Copper/Manganese/ Seleni/Zn 1 ml / Insulin Human Regular 10 unit/ Total Parenteral Nutrition/Amino Acids/Dextrose / Fat Emulsion Intravenous 1,512 ml @ 63 mls/hr TPN CONT IV Last administered on 07/16/16 21:53; Start 07/16/16 at 22:00; Stop 07/17/16 at 21:59 ; Status DC Pantoprazole Sodium 80 mg/ Sodium Chloride 100 ml @ 10 mls/hr Q10H IV Last administered on 07/20/16 02:44; Start 07/17/16 at 06:45 Sodium Acetate/ Potassium Acetate/ Magnesium Sulfate/ Calcium Gluconate/ Multivitamins/ Chromium/Copper/ Manganese/Seleni/ Zn/Insulin Human Regular/ Total Parenteral Nutrition/Amino Acids/Dextrose/ Fat Emulsion Intravenous ( Calcium Gluconate/ Infuvite Adult/ Multitrace-5 Conc/ Novolin R Vi... 1,512 ml @ 63 mls/hr TPN CONT IV Last administered on 07/17/16 21:49; Start 07/17/16 at 22:00; Stop 07/18/16 at 21:59; Status DC Insulin Detemir (Levemir) 25 units BID SQ Last administered on 07/17/16 20:51 ; Start 07/17/16 at 10:30; Stop 07/18/16 at 08:12; Status DC Insulin Aspart (Novolog) 0-9 UNITS TIDWMEALS SQ Last administered on 07/18/16 10:03; Start 07/17/16 at 12:00; Stop 07/18/16 at 11:55; Status DC Dextrose 12.5 gm PRN Q15MIN PRN IV SEE COMMENTS; Start 07/17/16 at 10:15; Status UNV Iohexol (Omnipaque 300 Mg/ml) 100 ml STK-MED ONCE .ROUTE ; Start 07/17/16 at 10: 45; Stop 07/17/16 at 10:46; Status DC Lidocaine/Sodium Bicarbonate 20 ml 20 ml STK-MED ONCE IJ ; Start 07/17/16 at 10: 45; Stop 07/17/16 at 10:46; Status DC Heparin Sodium/ Sodium Chloride 500 ml @ As Directed STK-MED ONCE .ROUTE ; Start 07/17/16 at 10:46; Stop 07/17/16 at 10:47; Status DC Heparin Sodium/ Sodium Chloride 1,000 unit 1X ONCE IART Last administered on 11:27; Start 07/17/16 at 11:15; Stop 07/17/16 at 11:26; Status DC Lidocaine/Sodium Bicarbonate (Buffered Lidocaine 1%) 3 ml 1X ONCE IJ Last administered on 07/17/16 11:15; Start 07/17/16 at 11:15; Stop 07/17/16 at 11:26 ; Status DC Iohexol (Omnipaque 300 Mg/ml) 40 ml 1X ONCE IART Last administered on 11:26; Start 07/17/16 at 11:15; Stop 07/17/16 at 11:26; Status DC Info (Do NOT chart on this entry -- for MONITORING) 1 each PRN DAILY PRN MC SEE COMMENTS; Start 07/17/16 at 11:30; Stop 07/19/16 at 11:29; Status DC Calcium Chloride 2,000 mg STK-MED ONCE IV ; Start 07/16/16 at 13:02; Stop at 13:03; Status DC Epinephrine HCl 4 mg STK-MED ONCE .ROUTE ; Start 07/16/16 at 13:02; Stop at 13:03; Status DC Furosemide 40 mg 40 mg 1X ONCE IVP Last administered on 07/17/16 16:45; Start 07/17/16 at 16:45; Stop 07/17/16 at 16:47; Status DC Propofol (Diprivan) 100 ml @ As Directed STK-MED ONCE IV ; Start 07/17/16 at 16 :36; Stop 07/17/16 at 16:37; Status DC Insulin Detemir (Levemir) 35 units BID SQ Last administered on 07/18/16 10:00 ; Start 07/18/16 at 09:00; Stop 07/18/16 at 11:55; Status DC Insulin Aspart (Novolog) 10 units Q6HRS SQ ; Start 07/18/16 at 12:00; Stop 07/18 at 12:00; Status DC Insulin Aspart 20 units 20 units 1X ONCE SQ Last administered on 07/18/16 10: 02; Start 07/18/16 at 08:15; Stop 07/18/16 at 11:56; Status DC Sodium Acetate/ Potassium Acetate/ Magnesium Sulfate/ Calcium Gluconate/ Multivitamins/ Chromium/Copper/ Manganese/Seleni/ Zn/Insulin Human Regular/ Total Parenteral Nutrition/Amino Acids/Dextrose/ Fat Emulsion Intravenous ( Calcium Gluconate/ Infuvite Adult/ Multitrace-5 Conc/ Novolin R Vi... 1,512 ml @ 63 mls/hr TPN CONT IV Last administered on 07/18/16 22:03; Start 07/18/16 at 22:00; Stop 07/19/16 at 21:59; Status DC Atropine Sulfate 0.5 mg 0.5 mg STK-MED ONCE .ROUTE ; Start 07/18/16 at 09:43; Stop 07/18/16 at 09:44; Status DC Insulin Human Regular/Sodium Chloride (Novolin R Vial/ Iv Normal Saline 150ml) 151.5 ml @ 0 mls/hr CONT PRN IV SEE I/O RECORD Last administered on 07/18/16 13:54; Start 07/18/16 at 11:45; Stop 07/19/16 at 10:27; Status DC Dextrose 12.5 gm 12.5 gm PRN Q15MIN PRN IV LOW BLOOD SUGAR; Start 07/18/16 at 11:45; Stop 07/19/16 at 10:53; Status DC Potassium Chloride (KCl Premix 20meq) 50 ml @ 25 mls/hr Q2H IV Last administered on 07/19/16 11:09; Start 07/19/16 at 09:30; Stop 07/19/16 at 13:29 ; Status DC Propofol (Diprivan) 1,000 mg STK-MED ONCE IV ; Start 07/17/16 at 16:36; Stop at 08:22; Status DC Atropine Sulfate 1 mg STK-MED ONCE .ROUTE ; Start 07/18/16 at 09:43; Stop at 08:53; Status DC Hydrocortisone Sodium Succinate (Solu-Cortef) 50 mg Q8HRS IV Last administered on 07/20/16 06:01; Start 07/19/16 at 14:00 Heparin Sodium (Porcine) 7400 unit 7,400 unit 1X ONCE IV Last administered on 07/19/16 10:03; Start 07/19/16 at 09:45; Stop 07/19/16 at 09:53; Status DC Heparin Sodium/ Dextrose 500 ml @ 0 mls/hr CONT PRN IV SEE I/O RECORD Last administered on 07/20/16 07:04; Start 07/19/16 at 09:45 Heparin Sodium (Porcine) 2,800 unit PRN Q6HRS PRN IV FOR UFH LEVEL LESS THAN 0.2; Start 07/19/16 at 09:45 Heparin Sodium (Porcine) 1,400 unit PRN Q6HRS PRN IV FOR UFH LEVEL 0.2 - 0.29; Start 07/19/16 at 09:45 Warfarin Sodium (Coumadin Per Pharmacy) 1 each PRN DAILY PRN MC PER PROTOCOL Last administered on 07/20/16 09:19; Start 07/19/16 at 09:45 Insulin Aspart (Novolog) 0-5 UNITS TIDWMEALS SQ Last administered on 07/19/16 12:02; Start 07/19/16 at 12:00; Stop 07/19/16 at 16:45; Status DC Dextrose 12.5 gm 12.5 gm PRN Q15MIN PRN IV SEE COMMENTS; Start 07/19/16 at 10: 30 Potassium Acetate/ Magnesium Sulfate/ Calcium Gluconate/ Multivitamins/ Chromium /Copper/ Manganese/Seleni/ Zn/Insulin Human Regular/Total Parenteral Nutrition/ Amino Acids/Dextrose/ Fat Emulsion Intravenous (Calcium Gluconate/ Infuvite Adult/ Multitrace-5 Conc/ Novolin R Vial/ Tpn - Tpn Flu... 1,200 ml @ 50 mls/ hr TPN CONT IV ; Start 07/19/16 at 22:00; Stop 07/19/16 at 22:00; Status DC Insulin Aspart (Novolog) 0-5 UNITS Q6HRS SQ Last administered on 07/20/16 06: 02; Start 07/19/16 at 18:00 Warfarin Sodium (Coumadin) 4 mg 1X WARF ONCE PO Last administered on 17:26; Start 07/19/16 at 17:02; Stop 07/19/16 at 17:03; Status DC Fentanyl Citrate (Fentanyl 2ml Vial) 50 mcg PRN Q2HR PRN IV PAIN Last administered on 07/20/16 06:01; Start 07/20/16 at 02:45 Warfarin Sodium (Coumadin) 5 mg 1X WARF ONCE PO ; Start 07/20/16 at 16:00; Stop 07/20/16 at 16:01 Midazolam HCl (Versed) Please sedate pt ... Q1HR PRN IV sedation on vent; Start 07/20/16 at 11:15; Status UNV Active Scripts Active Levemir Flextouch (Insulin Detemir) 100 Unit/1 Ml Insuln.pen 20 Units SQ QHS 30 Days Novolog Flexpen (Insulin Aspart) 100 Unit/1 Ml Insuln.pen 10 Units SQ TIDAC 30 Days Reported Advair 100-50 Diskus (Fluticasone/Salmeterol) 1 Each Disk.w.dev 1 Puff IH BID Spiriva Respimat (Tiotropium [place]) 4 Gm Mist.inhal 2.5 Gm IH DAILY Symbicort 160-4.5 Mcg Inhaler (Budesonide/Formoterol Fumarate) 10.2 Gm Hfa.aer.ad 2 Puff IH BID Atorvastatin Calcium 20 Mg Tablet 20 Mg PO HS Lisinopril-Hctz 10-12.5 Mg Tab (Lisinopril/Hydrochlorothiazide) 1 Each Tablet 1 Tab PO DAILY Isosorbide Mononitrate Er (Isosorbide Mononitrate) 120 Mg Tab.er.24h 120 Mg PO DAILY Novolin N (Nph, Human Insulin Isophane) 100 Unit/1 Ml Vial 0 SQ Promethazine-Codeine Syrup (Promethazine Hcl/Codeine) 118 Ml Syrup 5 Ml PO Q4- 6HRS Diltiazem 24HR Cd (Diltiazem Hcl) 240 Mg Cap.er.24h 240 Mg PO DAILY NITROGLYCERIN SubLingual (Nitroglycerin) 0.4 Mg Tab.subl 0.4 Mg SL PRN Q5MIN PRN Atorvastatin Calcium 40 Mg Tablet 40 Mg PO HS Vitals/I & O Vital Sign - Last 24 Hours 07/19/16 07/19/16 07/19/16 07/19/16 11:21 12:00 12:00 13:00 Temp 98.2 98.2 Pulse 71 72 Resp 21 22 B/P 106/58 115/59 Pulse Ox 100 100 100 O2 Delivery Ventilator Ventilator Mechanical Ventilator Ventilator 07/19/16 07/19/16 07/19/16 07/19/16 13:58 14:00 15:00 15:10 Pulse 78 80 Resp 22 22 B/P 120/62 107/56 Pulse Ox 100 100 100 99 O2 Delivery Ventilator Ventilator Ventilator Ventilator 07/19/16 07/19/16 07/19/16 07/19/16 16:00 16:00 17:00 17:00 Temp 98.8 98.8 Pulse 84 84 Resp 21 21 B/P 110/55 109/57 Pulse Ox 100 98 99 O2 Delivery Mechanical Ventilator Ventilator Ventilator Ventilator 07/19/16 07/19/16 07/19/16 07/19/16 18:00 19:00 20:00 20:00 Temp 99.1 99.1 Pulse 79 72 76 Resp 22 22 22 B/P 116/63 107/61 106/51 Pulse Ox 100 100 100 O2 Delivery Ventilator Ventilator Mechanical Ventilator Ventilator 07/19/16 07/19/16 07/19/16 07/19/16 20:32 21:00 22:00 22:49 Pulse 80 80 Resp 22 22 B/P 107/51 109/56 Pulse Ox 98 100 100 100 O2 Delivery Ventilator Ventilator Ventilator Ventilator 07/19/16 07/20/16 07/20/16 07/20/16 23:00 00:00 00:00 01:00 Temp 99.2 99.2 Pulse 78 77 75 Resp 22 22 22 B/P 116/59 115/59 116/56 Pulse Ox 100 100 100 O2 Delivery Ventilator Mechanical Ventilator Ventilator Ventilator 07/20/16 07/20/16 07/20/16 07/20/16 01:17 02:00 02:45 03:00 Pulse 75 70 Resp 22 22 22 B/P 114/57 99/53 Pulse Ox 100 100 100 100 O2 Delivery Ventilator Ventilator Ventilator Ventilator 07/20/16 07/20/16 07/20/16 07/20/16 03:14 04:00 04:00 05:00 Temp 98.6 98.6 Pulse 73 74 Resp 22 22 B/P 110/66 109/54 Pulse Ox 100 100 100 O2 Delivery Ventilator Ventilator Mechanical Ventilator Ventilator 07/20/16 07/20/16 07/20/16 07/20/16 05:23 06:00 06:01 06:30 Pulse 74 Resp 22 22 22 B/P 114/56 Pulse Ox 100 100 100 100 O2 Delivery Ventilator Ventilator Ventilator Ventilator 3/28/07/20/16 07/20/16 07/20/16 07:00 08:00 08:00 08:15 Temp 99.2 99.2 Pulse 86 84 Resp 33 24 B/P 138/67 132/55 Pulse Ox 100 99 100 O2 Delivery Ventilator Ventilator Mechanical Ventilator Ventilator 07/20/16 07/20/16 07/20/16 08:45 09:00 10:00 Pulse 83 79 Resp 30 24 B/P 154/74 160/59 Pulse Ox 99 98 O2 Delivery Ventilator Ventilator Ventilator Intake and Output 07/19/16 07/19/16 07/20/16 15:00 23:00 07:00 Intake Total 247 ml 1512 ml 1317 ml Output Total 244 ml 592 ml 280 ml Balance 3 ml 920 ml 1037 ml JUHI FRANCIS III DO Jul 20, 2016 11:14
[2016-07-20] MEDS ORDERED: MIDAZOLAM HCL 2 MG/2 ML VIAL. IV PRN ×3 (11:15)
[2016-07-20] MEDS: IV NORMAL SALINE 1000ML BAG 1,000 ML IV SCH (11:15)
[2016-07-20] MEDS: MIDAZOLAM HCL 2 MG/2 ML VIAL. IV PRN ×8 (11:39→22:55)
--- NOTE | 2016-07-20 14:42 | PDOC2 ---
PALLIATIVE CARE Palliative Care Note Palliative Care Patient seen at 1130. Remains intubated. Weaning trial in process. Patient responds to verbal stimuli and and painful stimuli. No family here. Goal is full aggressive care. NORMAN GARCIA Jul 20, 2016 14:42
[2016-07-20] MEDS ORDERED: WARFARIN 5 MG TABLET. PO ONE (16:00)
[2016-07-20 19:26] LABS: GAMMA UR 25.9 % (.); M-SPIKE, % Not Observed % (Not Observed); PROTEIN 24 UR 575.1 mg/24 hr (30.0-150.0); PROTEIN UR 32.4 mg/dL (Not Estab.)
[2016-07-20] MEDS: ATORVASTATIN CALCIUM 40 MG TABLET. PO SCH (20:31)
[2016-07-20] MEDS ORDERED: INSULIN DETEMIR 300 UNITS/3 ML INSULN.PEN. SQ SCH (21:00)
[2016-07-21] VITALS (24 sets, daily range): BP systolic 129–178; BP diastolic 53–84
[2016-07-21] MEDS: IV NORMAL SALINE 1000ML BAG 1,000 ML IV SCH ×2 (00:11→15:37)
[2016-07-21] MEDS: MIDAZOLAM HCL 2 MG/2 ML VIAL. IV PRN ×12 (00:44→23:52)
[2016-07-21] MEDS: FENTANYL PF 100 MCG/2 ML VIAL. IV PRN ×10 (01:44→22:19)
[2016-07-21] MEDS: HYDROCORTISONE SOD SUCC/PF 100 MG/2 ML VIAL. IV SCH ×3 (05:24→21:48)
[2016-07-21] MEDS: INSULIN ASPART 300 UNITS/3 ML INSULN.PEN SQ SCH ×5 (05:25→23:53)
[2016-07-21 05:34] LABS: HEMATOCRIT 26.6 % (39.0-53.0); HEMOGLOBIN 8.6 g/dL (13.0-17.5); RED BLOOD COUNT 2.99 x10^6/uL (4.30-5.70); RED CELL DISTRIBUTION WIDTH 14.7 % (11.5-14.5); WHITE BLOOD COUNT 12.4 x10^3/uL (4.0-11.0)
[2016-07-21 05:47] LABS: ALBUMIN 1.9 g/dL (3.4-5.0); CREATININE 1.7 mg/dL (0.7-1.3); PHOSPHORUS 4.4 mg/dL (2.6-4.7); POTASSIUM 3.5 mmol/L (3.5-5.1)
[2016-07-21 05:59] LABS: INR 1.3 (0.8-1.1); PROTHROMBIN TIME PATIENT 15.7 SEC (11.7-14.0)
--- NOTE | 2016-07-21 08:07 | RAD ---
Indication respiratory failure. A single view chest was obtained and is compared to a study one day earlier. Right pleural fluid and associated volume loss persists. Volume loss at the left lung base is again seen. Right-sided dialysis catheter and IJ catheter are noted. Endotracheal tube is appropriately positioned above the herson. A Dobbhoff feeding tube is again noted. A significant change in the appearance of the chest relative to yesterday's study is not seen. IMPRESSION: No significant change in the appearance of the chest when compared to yesterday's exam
[2016-07-21] MEDS: SCOPOLAMINE 1.5MG PATCH. TD SCH (08:30)
[2016-07-21] MEDS: MUPIROCIN 2 % NASAL OINTMENT 22GM TUBE. NS SCH ×2 (08:30→21:48)
[2016-07-21] MEDS: CHLORHEXIDINE 0.12% 15 ML MOUTHWASH. MM SCH ×2 (08:30→21:48)
[2016-07-21] MEDS: IPRATROPIUM BROMIDE 0.5 MG/2.5 ML NEBU. NEB SCH ×4 (08:43→20:19)
--- NOTE | 2016-07-21 08:44 | PDOC ---
PULMONARY PROGRESS NOTES Subjective off sedation moves extremities, follow commands did ok on t tube trial Vitals Vital Signs Date Time Temp Pulse Resp B/P Pulse Ox O2 Delivery O2 Flow Rate FiO2 07/21/16 08:00 98.2 58 22 175/84 100 Ventilator 98.2 General: Alert HEENT: Other (nc at orally intubated, nose clear, ) Lungs: Other (decrease bs) Cardiovascular: S1, S2 Abdomen: Soft, Non-tender, Other (no groin tenderness) Neuro Exam: Alert Extremities: Other (trace edema) Skin: Warm Labs Laboratory Tests Test 07/19/16 09:48 07/19/16 11:57 07/19/16 16:05 07/19/16 17:09 Glucose (Fingerstick) 147mg/dL (70-99) 170mg/dL (70-99) 183mg/dL (70-99) Hemoglobin 8.1g/dL (13.0-17.5) Prothrombin Time 17.0SEC (11.7-14.0) Prothromb Time International Ratio 1.5 (0.8-1.1) Heparin Anti-Xa Act, Unfractionated > 1.10IU/mL (0.30-0.70) Test 07/19/16 21:50 07/19/16 23:58 07/20/16 03:45 07/20/16 05:58 Heparin Anti-Xa Act, Unfractionated > 1.10IU/mL (0.30-0.70) 0.42IU/mL (0.30-0.70) Glucose (Fingerstick) 247mg/dL (70-99) 314mg/dL (70-99) White Blood Count 12.4x10^3/uL (4.0-11.0) Red Blood Count 2.64x10^6/uL (4.30-5.70) Hemoglobin 7.5g/dL (13.0-17.5) Hematocrit 22.8% (39.0-53.0) Mean Corpuscular Volume 87fL (79-100) Mean Corpuscular Hemoglobin 29pg (25-35) Mean Corpuscular Hemoglobin Concent 33g/dL (31-37) Red Cell Distribution Width 14.8% (11.5-14.5) Platelet Count 160x10^3/uL (140-400) Prothrombin Time 15.5SEC (11.7-14.0) Prothromb Time International Ratio 1.3 (0.8-1.1) Sodium Level 144mmol/L (136-145) Potassium Level 3.7mmol/L (3.5-5.1) Chloride Level 108mmol/L (98-107) Carbon Dioxide Level 25mmol/L (21-32) Anion Gap 11 (6-14) Blood Urea Nitrogen 93mg/dL (8-26) Creatinine 2.2mg/dL (0.7-1.3) Estimated GFR (Cockcroft-Gault) 35.7 Glucose Level 296mg/dL (70-99) Calcium Level 7.8mg/dL (8.5-10.1) Phosphorus Level 5.7mg/dL (2.6-4.7) Albumin 2.0g/dL (3.4-5.0) Test 07/20/16 09:20 07/20/16 09:48 07/20/16 11:37 07/20/16 17:05 O2 Saturation 92% (92-99) Arterial Blood pH 7.34 (7.35-7.45) Arterial Blood pCO2 at Patient Temp 45mmHg (35-46) Arterial Blood pO2 at Patient Temp 74mmHg (65-108) Arterial Blood HCO3 24mmol/L (21-28) Arterial Blood Base Excess -2mmol/L (-3-3) FiO2 40 Heparin Anti-Xa Act, Unfractionated 0.28IU/mL (0.30-0.70) 0.53IU/mL (0.30-0.70) Glucose (Fingerstick) 326mg/dL (70-99) Hemoglobin 8.8g/dL (13.0-17.5) Test 07/20/16 17:31 07/20/16 23:00 07/20/16 23:47 07/21/16 05:15 Glucose (Fingerstick) 380mg/dL (70-99) 341mg/dL (70-99) 356mg/dL (70-99) Heparin Anti-Xa Act, Unfractionated 0.48IU/mL (0.30-0.70) Test 07/21/16 05:20 White Blood Count 12.4x10^3/uL (4.0-11.0) Red Blood Count 2.99x10^6/uL (4.30-5.70) Hemoglobin 8.6g/dL (13.0-17.5) Hematocrit 26.6% (39.0-53.0) Mean Corpuscular Volume 89fL (79-100) Mean Corpuscular Hemoglobin 29pg (25-35) Mean Corpuscular Hemoglobin Concent 32g/dL (31-37) Red Cell Distribution Width 14.7% (11.5-14.5) Platelet Count 160x10^3/uL (140-400) Prothrombin Time 15.7SEC (11.7-14.0) Prothromb Time International Ratio 1.3 (0.8-1.1) Heparin Anti-Xa Act, Unfractionated 0.47IU/mL (0.30-0.70) Sodium Level 142mmol/L (136-145) Potassium Level 3.5mmol/L (3.5-5.1) Chloride Level 108mmol/L (98-107) Carbon Dioxide Level 21mmol/L (21-32) Anion Gap 13 (6-14) Blood Urea Nitrogen 88mg/dL (8-26) Creatinine 1.7mg/dL (0.7-1.3) Estimated GFR (Cockcroft-Gault) 48.0 Glucose Level 394mg/dL (70-99) Calcium Level 8.0mg/dL (8.5-10.1) Phosphorus Level 4.4mg/dL (2.6-4.7) Albumin 1.9g/dL (3.4-5.0) Laboratory Tests Test 07/20/16 09:20 07/20/16 09:48 07/20/16 11:37 07/20/16 17:05 O2 Saturation 92% (92-99) Arterial Blood pH 7.34 (7.35-7.45) Arterial Blood pCO2 at Patient Temp 45mmHg (35-46) Arterial Blood pO2 at Patient Temp 74mmHg (65-108) Arterial Blood HCO3 24mmol/L (21-28) Arterial Blood Base Excess -2mmol/L (-3-3) FiO2 40 Heparin Anti-Xa Act, Unfractionated 0.28IU/mL (0.30-0.70) 0.53IU/mL (0.30-0.70) Glucose (Fingerstick) 326mg/dL (70-99) Hemoglobin 8.8g/dL (13.0-17.5) Test 07/20/16 17:31 07/20/16 23:00 07/20/16 23:47 07/21/16 05:15 Glucose (Fingerstick) 380mg/dL (70-99) 341mg/dL (70-99) 356mg/dL (70-99) Heparin Anti-Xa Act, Unfractionated 0.48IU/mL (0.30-0.70) Test 07/21/16 05:20 White Blood Count 12.4x10^3/uL (4.0-11.0) Red Blood Count 2.99x10^6/uL (4.30-5.70) Hemoglobin 8.6g/dL (13.0-17.5) Hematocrit 26.6% (39.0-53.0) Mean Corpuscular Volume 89fL (79-100) Mean Corpuscular Hemoglobin 29pg (25-35) Mean Corpuscular Hemoglobin Concent 32g/dL (31-37) Red Cell Distribution Width 14.7% (11.5-14.5) Platelet Count 160x10^3/uL (140-400) Prothrombin Time 15.7SEC (11.7-14.0) Prothromb Time International Ratio 1.3 (0.8-1.1) Heparin Anti-Xa Act, Unfractionated 0.47IU/mL (0.30-0.70) Sodium Level 142mmol/L (136-145) Potassium Level 3.5mmol/L (3.5-5.1) Chloride Level 108mmol/L (98-107) Carbon Dioxide Level 21mmol/L (21-32) Anion Gap 13 (6-14) Blood Urea Nitrogen 88mg/dL (8-26) Creatinine 1.7mg/dL (0.7-1.3) Estimated GFR (Cockcroft-Gault) 48.0 Glucose Level 394mg/dL (70-99) Calcium Level 8.0mg/dL (8.5-10.1) Phosphorus Level 4.4mg/dL (2.6-4.7) Albumin 1.9g/dL (3.4-5.0) Medications Active Scripts Medications Dose Route/Sig Days Date Category Advair 100-50 Diskus (Fluticasone/Salmeterol) 1 Each Disk.w.dev 1 Puff IH BID 06/21/16 Reported Spiriva Respimat (Tiotropium [place]) 4 Gm Mist.inhal 2.5 Gm IH DAILY 06/21/16 Reported Symbicort 160-4.5 Mcg Inhaler (Budesonide/Formoterol Fumarate) 10.2 Gm Hfa.aer.ad 2 Puff IH BID 06/21/16 Reported Atorvastatin Calcium 20 Mg Tablet 20 Mg PO HS 06/21/16 Reported Lisinopril-Hctz 10-12.5 Mg Tab (Lisinopril/Hydrochlorothiazide) 1 Each Tablet 1 Tab PO DAILY 06/21/16 Reported Isosorbide Mononitrate Er (Isosorbide Mononitrate) 120 Mg Tab.er.24h 120 Mg PO DAILY 06/21/16 Reported Levemir Flextouch (Insulin Detemir) 100 Unit/1 Ml Insuln.pen 20 Units SQ QHS 30 11/24/15 Rx Novolog Flexpen (Insulin Aspart) 100 Unit/1 Ml Insuln.pen 10 Units SQ TIDAC 30 11/24/15 Rx Novolin N (Nph, Human Insulin Isophane) 100 Unit/1 Ml Vial 0 SQ 11/18/15 Reported Promethazine-Codeine Syrup (Promethazine Hcl/Codeine) 118 Ml Syrup 5 Ml PO Q4-6HRS 11/18/15 Reported Diltiazem 24HR Cd (Diltiazem Hcl) 240 Mg Cap.er.24h 240 Mg PO DAILY 11/18/15 Reported NITROGLYCERIN SubLingual (Nitroglycerin) 0.4 Mg Tab.subl 0.4 Mg SL PRN Q5MIN PRN 11/18/15 Reported Atorvastatin Calcium 40 Mg Tablet 40 Mg PO HS 11/18/[address] reviewed, 1. Widespread multifocal bilateral segmental pulmonary embolism, with nonocclusive lobar embolism involving the right lower and middle lobes. 2. Diffuse tree-in-bud opacification suggestive of acute bronchiolitis. Findings are less confluence than on the prior examination, but now involve the lower lobes. 3. Right heart enlargement with straightening of the interventricular septum possibly due to pulmonary hypertension. Correlate clinically and consider echocardiography if warranted. 4. Short segment high-grade stricture and/or focal obliteration of the right upper lobe bronchus. No adjacent mass or evidence of extrinsic compression. This is stable. CXR 07/19 chronic RLL pleural thickening/ ET high Impression . 1. Acute respiratory failure secondary to angioedema, self extubated 07/14, reintubated 07/15, s/p cardiopulmonary arrest, Acute extensive PE, DVT, s/p TPA 2. Acute extensive PE with shock, DVT, s/p TPA, off pressors 2. Lisinopril induced angioedema. resolved 3. Chronic obstructive pulmonary disease. 4. Hypertension. 5. Coronary artery disease. s/p emergent cath.no sig disease 6. BASIM, improving 7. anemia,improved, off AC since last night Plan . did ok on t tube trial not ready for extubation d/w RT PS for now Extubate in am after sergo PRN sedation 1. cont vent support for now 2. Continue steroids, start taper 3. GI prophylaxis. 4. follow nephro rec 5. re-start Heparin protocol. follow Hb closely 6. consider enteral nutrition, wean off TPN 7. NEBS CCT 30 minutes DOUGIE RIVAS MD Jul 21, 2016 08:44
[2016-07-21 08:59] LABS: HCO3 ABG 21 mmol/L (21-28); PCO2 ABG 36 mmHg (35-46); PH ABG 7.38 (7.35-7.45); PO2 ABG 115 mmHg (65-108); SAT O2 ABG 98 % (92-99)
[2016-07-21 09:03] LABS: FIO2 ABG 40
[2016-07-21] MEDS: PANTOPRAZOLE SODIUM IV 80 MG in IV NORMAL SALINE 100ML 100 ML IV SCH (10:10)
--- NOTE | 2016-07-21 10:49 | PDOC ---
Renal-Progress Notes Subjective Notes Notes NONE, INTUBATED History of Present Illness Hx of present illness BETTER Vitals Vitals Vital Signs Date Time Temp Pulse Resp B/P Pulse Ox O2 Delivery O2 Flow Rate FiO2 07/21/16 09:08 24 99 Ventilator 07/21/16 09:00 64 178/57 07/21/16 08:00 98.2 98.2 Weight Weight [ ] I.O. Intake and Output Intake and Output 07/21/16 07:00 Intake Total 4471 ml Output Total 1608 ml Balance 2863 ml IV Total 1049 ml Tube Feeding 2172 ml Blood Product IV Normal Saline Flush 755 ml Other 495 ml Output Urine Total 1608 ml Gastric Drainage Total 0 ml # Bowel Movements 1 Labs Labs Laboratory Tests Test 07/20/16 11:37 07/20/16 17:05 07/20/16 17:31 07/20/16 23:00 Glucose (Fingerstick) 326mg/dL (70-99) 380mg/dL (70-99) Hemoglobin 8.8g/dL (13.0-17.5) Heparin Anti-Xa Act, Unfractionated 0.53IU/mL (0.30-0.70) 0.48IU/mL (0.30-0.70) Test 07/20/16 23:47 07/21/16 05:15 07/21/16 05:20 07/21/16 08:30 Glucose (Fingerstick) 341mg/dL (70-99) 356mg/dL (70-99) White Blood Count 12.4x10^3/uL (4.0-11.0) Red Blood Count 2.99x10^6/uL (4.30-5.70) Hemoglobin 8.6g/dL (13.0-17.5) Hematocrit 26.6% (39.0-53.0) Mean Corpuscular Volume 89fL (79-100) Mean Corpuscular Hemoglobin 29pg (25-35) Mean Corpuscular Hemoglobin Concent 32g/dL (31-37) Red Cell Distribution Width 14.7% (11.5-14.5) Platelet Count 160x10^3/uL (140-400) Prothrombin Time 15.7SEC (11.7-14.0) Prothromb Time International Ratio 1.3 (0.8-1.1) Heparin Anti-Xa Act, Unfractionated 0.47IU/mL (0.30-0.70) Sodium Level 142mmol/L (136-145) Potassium Level 3.5mmol/L (3.5-5.1) Chloride Level 108mmol/L (98-107) Carbon Dioxide Level 21mmol/L (21-32) Anion Gap 13 (6-14) Blood Urea Nitrogen 88mg/dL (8-26) Creatinine 1.7mg/dL (0.7-1.3) Estimated GFR (Cockcroft-Gault) 48.0 Glucose Level 394mg/dL (70-99) Calcium Level 8.0mg/dL (8.5-10.1) Phosphorus Level 4.4mg/dL (2.6-4.7) Albumin 1.9g/dL (3.4-5.0) O2 Saturation 98% (92-99) Arterial Blood pH 7.38 (7.35-7.45) Arterial Blood pCO2 at Patient Temp 36mmHg (35-46) Arterial Blood pO2 at Patient Temp 115mmHg (65-108) Arterial Blood HCO3 21mmol/L (21-28) Arterial Blood Base Excess -4mmol/L (-3-3) FiO2 40 Micro Micro Microbiology 07/15/16 Blood Culture - Final, Complete NO GROWTH AFTER 5 DAYS 07/14/16 Urine Culture - Final, Complete 07/14/16 Urine Culture Result 1 (MARÍA) - Final, Complete 07/14/16 Urine Culture Result 2 (MARÍA) - Final, Complete 07/14/16 Antimicrobic Susceptibility - Final, Complete Review of Systems Constitutional: yes: no symptom reported Physical Exam General Appearance: no apparent distress Respiratory: decreased breath sounds Heart: S1S2 Abdomen: soft, bowel sounds present Genitourinary: bladder flat Extremities: pulses present Neurology: other (SEDATED) Assessment Assessment IMP BASIM-BETTER TODAY WITH CR DOWN TO 1.7 RESP FAILURE ANGIOEDEMA MILD HYPOKALEMIA-RESOLVED MILD HYPERNATREMIA-BETTER PE ANEMIA PLAN TOLERATING TF CONT IVF'S LEAVE TEMP HD CATHETER IN PLACE FOR NOW SUPPORTIVE CARE WILL FOLLOW UPDATED DAUGHTER ERIKA IBARRA MD Jul 21, 2016 10:49
--- NOTE | 2016-07-21 11:40 | PDOC ---
Objective: Objective: No GI concerns per RN. Vital Signs: Vital Signs Date Time Temp Pulse Resp B/P Pulse Ox O2 Delivery O2 Flow Rate FiO2 07/21/16 11:19 27 99 Ventilator 07/21/16 11:00 57 165/80 07/21/16 08:00 98.2 98.2 Labs: Laboratory Tests Test 07/20/16 17:05 07/20/16 17:31 07/20/16 23:00 07/20/16 23:47 Hemoglobin 8.8g/dL Heparin Anti-Xa Act, Unfractionated 0.53IU/mL 0.48IU/mL Glucose (Fingerstick) 380mg/dL 341mg/dL Test 07/21/16 05:15 07/21/16 05:20 07/21/16 08:30 Glucose (Fingerstick) 356mg/dL White Blood Count 12.4x10^3/uL Red Blood Count 2.99x10^6/uL Hemoglobin 8.6g/dL Hematocrit 26.6% Mean Corpuscular Volume 89fL Mean Corpuscular Hemoglobin 29pg Mean Corpuscular Hemoglobin Concent 32g/dL Red Cell Distribution Width 14.7% Platelet Count 160x10^3/uL Prothrombin Time 15.7SEC Prothromb Time International Ratio 1.3 Heparin Anti-Xa Act, Unfractionated 0.47IU/mL Sodium Level 142mmol/L Potassium Level 3.5mmol/L Chloride Level 108mmol/L Carbon Dioxide Level 21mmol/L Anion Gap 13 Blood Urea Nitrogen 88mg/dL Creatinine 1.7mg/dL Estimated GFR (Cockcroft-Gault) 48.0 Glucose Level 394mg/dL Calcium Level 8.0mg/dL Phosphorus Level 4.4mg/dL Albumin 1.9g/dL O2 Saturation 98% Arterial Blood pH 7.38 Arterial Blood pCO2 at Patient Temp 36mmHg Arterial Blood pO2 at Patient Temp 115mmHg Arterial Blood HCO3 21mmol/L Arterial Blood Base Excess -4mmol/L FiO2 40 PE: GEN: intubated LUNGS: clear anteriorly on vent HEART: RRR ABD: BS+, S/ND NEURO/PSYCH: asleep A/P: Acute resp failure (intubated), s/p arrest, s/p cardiac cath, PE and DVT s/p TPA -off sedation, still intubated -tolerating tube feeds w/ Dobhoff Anemia -Hgb better, has had intermittent transfusions, no GI bleeding -on PPI drip, also Heparin -- Continue same per GI. SANDOR SARMIENTO Jul 21, 2016 11:40
[2016-07-21] MEDS: hydrALAZINE 20 MG/ML VIAL. IVP PRN (12:16)
--- NOTE | 2016-07-21 12:41 | PDOC ---
PROGRESS NOTES Chief Complaint Chief Complaint Angioedema - angioedema, likely 2/2 to ACEI; self extubated 07/14/16 - resolved - s/p CP arrest (PEA) sec to Multiple bilateral PE (07/15) - Non-occlusive thrombus, R leg (07/15) - COPD exacerbation - Low TSH levels in a critically ill patient - DM2; insulin requiring - Oliguric Hyperkalemic renal failure - Metabolic acidosis s/p arrest - Dyslipidemia on statin - Hypotensive shock, resolved and off pressors - Acute respiratory failure - intubated again (07/15) secondary to code blue ( PEA # 2) History of Present Illness History of Present Illness Seen in ICU this AM. Intubated and sedated. Off pressors; BP 170/75. Hgb 8.6 following transfusion. O2 Sat 100% on Vent: AC / 22 / 550 Vf / 40% Fi02 / 5 PEEP. Has passed weaning trial 2 days in a row. Pt tolerating dobhoff tube feeding. Discussed case with RN and respiratory therapy. Glucose has been in the 350s. Pt needing stool softener. Vitals Vitals Vital Signs Date Time Temp Pulse Resp B/P Pulse Ox O2 Delivery O2 Flow Rate FiO2 07/21/16 12:16 62 170/75 07/21/16 12:00 97.9 23 100 Ventilator 97.9 Physical Exam Physical Exam eyes- bilateral periorbital / subconjunctival edema General: Other (SEDATED) Heart: Regular rate, Normal S1, Normal S2, No murmurs, Gallops Lungs: Other (decrease bs) Abdomen: Normal bowel sounds, Soft, No tenderness, No hepatosplenomegaly, No masses Extremities: No clubbing, No cyanosis, No edema, Normal pulses, No tenderness/ swelling Skin: No rashes Labs LABS Laboratory Tests Test 07/20/16 17:05 07/20/16 17:31 07/20/16 23:00 07/20/16 23:47 Hemoglobin 8.8g/dL (13.0-17.5) Heparin Anti-Xa Act, Unfractionated 0.53IU/mL (0.30-0.70) 0.48IU/mL (0.30-0.70) Glucose (Fingerstick) 380mg/dL (70-99) 341mg/dL (70-99) Test 07/21/16 05:15 07/21/16 05:20 07/21/16 08:30 07/21/16 12:01 Glucose (Fingerstick) 356mg/dL (70-99) 388mg/dL (70-99) White Blood Count 12.4x10^3/uL (4.0-11.0) Red Blood Count 2.99x10^6/uL (4.30-5.70) Hemoglobin 8.6g/dL (13.0-17.5) Hematocrit 26.6% (39.0-53.0) Mean Corpuscular Volume 89fL (79-100) Mean Corpuscular Hemoglobin 29pg (25-35) Mean Corpuscular Hemoglobin Concent 32g/dL (31-37) Red Cell Distribution Width 14.7% (11.5-14.5) Platelet Count 160x10^3/uL (140-400) Prothrombin Time 15.7SEC (11.7-14.0) Prothromb Time International Ratio 1.3 (0.8-1.1) Heparin Anti-Xa Act, Unfractionated 0.47IU/mL (0.30-0.70) Sodium Level 142mmol/L (136-145) Potassium Level 3.5mmol/L (3.5-5.1) Chloride Level 108mmol/L (98-107) Carbon Dioxide Level 21mmol/L (21-32) Anion Gap 13 (6-14) Blood Urea Nitrogen 88mg/dL (8-26) Creatinine 1.7mg/dL (0.7-1.3) Estimated GFR (Cockcroft-Gault) 48.0 Glucose Level 394mg/dL (70-99) Calcium Level 8.0mg/dL (8.5-10.1) Phosphorus Level 4.4mg/dL (2.6-4.7) Albumin 1.9g/dL (3.4-5.0) O2 Saturation 98% (92-99) Arterial Blood pH 7.38 (7.35-7.45) Arterial Blood pCO2 at Patient Temp 36mmHg (35-46) Arterial Blood pO2 at Patient Temp 115mmHg (65-108) Arterial Blood HCO3 21mmol/L (21-28) Arterial Blood Base Excess -4mmol/L (-3-3) FiO2 40 Review of Systems Review of Systems afebrile + bilateral periorbital / subconjunctival edema Assessment and Plan Assessmemt and Plan Problems Medical Problems: (1) COPD exacerbation Status: Acute (2) Hyperglycemia Status: Acute ASSESSMENT: - angioedema likely 2/2 ACEI; self extubated 07/14/16 - resolved - s/p CP arrest (PEA) sec to Multiple bilateral PE (07/15) - Non-occlusive thrombus, R leg (07/15) - COPD exacerbation - Low TSH levels in a critically ill patient - DM2; insulin requiring - Oliguric Hyperkalemic renal failure - Metabolic acidosis s/p arrest - Dyslipidemia on statin - Hypotensive shock, resolved and off pressors - Acute respiratory failure - intubated again (07/15) secondary to code blue ( PEA # 2) PLAN: - LTAC eval - will increase SSI dose and Levemir for BG 350+ - Colace 100 mg BID - blood cultures no growth 5 days - cont vent support per pulmonology recommendation; may be changing to T tube today - cont dobhoff tube feeds - cont weaning trial - appreciate palliative care on the case - patient remains critically ill; Full code for now - appreciate all subspecialists on the case - cont PRN IVF - repeat daily labs - cont steroids; cont Atrovent per pulm - discussed case with RN, RT Problems: Comment Review of Relevant I have reviewed the following items valerie (where applicable) has been applied. Labs Laboratory Tests Test 07/19/16 16:05 07/19/16 17:09 07/19/16 21:50 07/19/16 23:58 Hemoglobin 8.1g/dL (13.0-17.5) Prothrombin Time 17.0SEC (11.7-14.0) Prothromb Time International Ratio 1.5 (0.8-1.1) Heparin Anti-Xa Act, Unfractionated > 1.10IU/mL (0.30-0.70) > 1.10IU/mL (0.30-0.70) Glucose (Fingerstick) 183mg/dL (70-99) 247mg/dL (70-99) Test 07/20/16 03:45 07/20/16 05:58 07/20/16 09:20 07/20/16 09:48 White Blood Count 12.4x10^3/uL (4.0-11.0) Red Blood Count 2.64x10^6/uL (4.30-5.70) Hemoglobin 7.5g/dL (13.0-17.5) Hematocrit 22.8% (39.0-53.0) Mean Corpuscular Volume 87fL (79-100) Mean Corpuscular Hemoglobin 29pg (25-35) Mean Corpuscular Hemoglobin Concent 33g/dL (31-37) Red Cell Distribution Width 14.8% (11.5-14.5) Platelet Count 160x10^3/uL (140-400) Prothrombin Time 15.5SEC (11.7-14.0) Prothromb Time International Ratio 1.3 (0.8-1.1) Heparin Anti-Xa Act, Unfractionated 0.42IU/mL (0.30-0.70) 0.28IU/mL (0.30-0.70) Sodium Level 144mmol/L (136-145) Potassium Level 3.7mmol/L (3.5-5.1) Chloride Level 108mmol/L (98-107) Carbon Dioxide Level 25mmol/L (21-32) Anion Gap 11 (6-14) Blood Urea Nitrogen 93mg/dL (8-26) Creatinine 2.2mg/dL (0.7-1.3) Estimated GFR (Cockcroft-Gault) 35.7 Glucose Level 296mg/dL (70-99) Calcium Level 7.8mg/dL (8.5-10.1) Phosphorus Level 5.7mg/dL (2.6-4.7) Albumin 2.0g/dL (3.4-5.0) Glucose (Fingerstick) 314mg/dL (70-99) O2 Saturation 92% (92-99) Arterial Blood pH 7.34 (7.35-7.45) Arterial Blood pCO2 at Patient Temp 45mmHg (35-46) Arterial Blood pO2 at Patient Temp 74mmHg (65-108) Arterial Blood HCO3 24mmol/L (21-28) Arterial Blood Base Excess -2mmol/L (-3-3) FiO2 40 Test 07/20/16 11:37 07/20/16 17:05 07/20/16 17:31 07/20/16 23:00 Glucose (Fingerstick) 326mg/dL (70-99) 380mg/dL (70-99) Hemoglobin 8.8g/dL (13.0-17.5) Heparin Anti-Xa Act, Unfractionated 0.53IU/mL (0.30-0.70) 0.48IU/mL (0.30-0.70) Test 07/20/16 23:47 07/21/16 05:15 07/21/16 05:20 07/21/16 08:30 Glucose (Fingerstick) 341mg/dL (70-99) 356mg/dL (70-99) White Blood Count 12.4x10^3/uL (4.0-11.0) Red Blood Count 2.99x10^6/uL (4.30-5.70) Hemoglobin 8.6g/dL (13.0-17.5) Hematocrit 26.6% (39.0-53.0) Mean Corpuscular Volume 89fL (79-100) Mean Corpuscular Hemoglobin 29pg (25-35) Mean Corpuscular Hemoglobin Concent 32g/dL (31-37) Red Cell Distribution Width 14.7% (11.5-14.5) Platelet Count 160x10^3/uL (140-400) Prothrombin Time 15.7SEC (11.7-14.0) Prothromb Time International Ratio 1.3 (0.8-1.1) Heparin Anti-Xa Act, Unfractionated 0.47IU/mL (0.30-0.70) Sodium Level 142mmol/L (136-145) Potassium Level 3.5mmol/L (3.5-5.1) Chloride Level 108mmol/L (98-107) Carbon Dioxide Level 21mmol/L (21-32) Anion Gap 13 (6-14) Blood Urea Nitrogen 88mg/dL (8-26) Creatinine 1.7mg/dL (0.7-1.3) Estimated GFR (Cockcroft-Gault) 48.0 Glucose Level 394mg/dL (70-99) Calcium Level 8.0mg/dL (8.5-10.1) Phosphorus Level 4.4mg/dL (2.6-4.7) Albumin 1.9g/dL (3.4-5.0) O2 Saturation 98% (92-99) Arterial Blood pH 7.38 (7.35-7.45) Arterial Blood pCO2 at Patient Temp 36mmHg (35-46) Arterial Blood pO2 at Patient Temp 115mmHg (65-108) Arterial Blood HCO3 21mmol/L (21-28) Arterial Blood Base Excess -4mmol/L (-3-3) FiO2 40 Test 07/21/16 12:01 Glucose (Fingerstick) 388mg/dL (70-99) Laboratory Tests Test 07/20/16 17:05 07/20/16 17:31 07/20/16 23:00 07/20/16 23:47 Hemoglobin 8.8g/dL (13.0-17.5) Heparin Anti-Xa Act, Unfractionated 0.53IU/mL (0.30-0.70) 0.48IU/mL (0.30-0.70) Glucose (Fingerstick) 380mg/dL (70-99) 341mg/dL (70-99) Test 07/21/16 05:15 07/21/16 05:20 07/21/16 08:30 07/21/16 12:01 Glucose (Fingerstick) 356mg/dL (70-99) 388mg/dL (70-99) White Blood Count 12.4x10^3/uL (4.0-11.0) Red Blood Count 2.99x10^6/uL (4.30-5.70) Hemoglobin 8.6g/dL (13.0-17.5) Hematocrit 26.6% (39.0-53.0) Mean Corpuscular Volume 89fL (79-100) Mean Corpuscular Hemoglobin 29pg (25-35) Mean Corpuscular Hemoglobin Concent 32g/dL (31-37) Red Cell Distribution Width 14.7% (11.5-14.5) Platelet Count 160x10^3/uL (140-400) Prothrombin Time 15.7SEC (11.7-14.0) Prothromb Time International Ratio 1.3 (0.8-1.1) Heparin Anti-Xa Act, Unfractionated 0.47IU/mL (0.30-0.70) Sodium Level 142mmol/L (136-145) Potassium Level 3.5mmol/L (3.5-5.1) Chloride Level 108mmol/L (98-107) Carbon Dioxide Level 21mmol/L (21-32) Anion Gap 13 (6-14) Blood Urea Nitrogen 88mg/dL (8-26) Creatinine 1.7mg/dL (0.7-1.3) Estimated GFR (Cockcroft-Gault) 48.0 Glucose Level 394mg/dL (70-99) Calcium Level 8.0mg/dL (8.5-10.1) Phosphorus Level 4.4mg/dL (2.6-4.7) Albumin 1.9g/dL (3.4-5.0) O2 Saturation 98% (92-99) Arterial Blood pH 7.38 (7.35-7.45) Arterial Blood pCO2 at Patient Temp 36mmHg (35-46) Arterial Blood pO2 at Patient Temp 115mmHg (65-108) Arterial Blood HCO3 21mmol/L (21-28) Arterial Blood Base Excess -4mmol/L (-3-3) FiO2 40 Microbiology 07/15/16 Blood Culture - Final, Complete NO GROWTH AFTER 5 DAYS 07/14/16 Urine Culture - Final, Complete 07/14/16 Urine Culture Result 1 (MARÍA) - Final, Complete 07/14/16 Urine Culture Result 2 (MARÍA) - Final, Complete 07/14/16 Antimicrobic Susceptibility - Final, Complete Medications Current Medications Albuterol/ Ipratropium (Duoneb) 6 ml 1X ONCE NEB Last administered on 12:34; Start 07/12/16 at 12:30; Stop 07/12/16 at 12:31; Status DC Prednisone 60 mg 60 mg 1X ONCE PO Last administered on 07/12/16 12:40; Start 07/12/16 at 12:30; Stop 07/12/16 at 12:31; Status DC Sodium Chloride (Iv Sodium Chloride 0.9% 1000ml Bag) 1,000 ml @ 1,000 mls/hr 1X ONCE IV Last administered on 07/12/16 13:12; Start 07/12/16 at 13:15; Stop 07/12/16 at 14:14; Status DC Insulin Human Regular (Novolin R Vial) 10 unit 1X ONCE IV Last administered on 07/12/16 13:16; Start 07/12/16 at 13:15; Stop 07/12/16 at 13:16; Status DC Diphenhydramine HCl (Benadryl) 50 mg STK-MED ONCE .ROUTE ; Start 07/12/16 at 14: 55; Stop 07/12/16 at 14:56; Status DC Diphenhydramine HCl (Benadryl) 50 mg 1X ONCE IVP Last administered on 15:15; Start 07/12/16 at 15:15; Stop 07/12/16 at 15:16; Status DC Atorvastatin Calcium (Lipitor) 40 mg HS PO Last administered on 07/20/16 20:31 ; Start 07/12/16 at 21:00 Diltiazem HCl (Cardizem 24hr Cd) 240 mg DAILY PO ; Start 07/12/16 at 16:30; Stop 07/13/16 at 17:18; Status DC Insulin Aspart (Novolog) 10 units TIDAC SQ ; Start 07/12/16 at 16:30; Stop 07/12 at 16:30; Status DC Insulin Detemir (Levemir) 20 units QHS SQ ; Start 07/12/16 at 21:00; Stop at 21:00; Status DC Promethazine HCl/ Codeine (Phenergan With Codeine) 5 ml QID PO ; Start 07/12/16 at 17:00; Stop 07/13/16 at 17:18; Status DC Non-Formulary Medication 2 puff BID IH ; Start 07/12/16 at 21:00; Status UNV Non-Formulary Medication 2.5 gm DAILY IH ; Start 07/13/16 at 09:00; Status UNV Budesonide (Pulmicort) 0.5 mg RTBID NEB Last administered on 07/13/16 07:30; Start 07/12/16 at 20:00; Stop 07/13/16 at 11:27; Status DC Albuterol/ Ipratropium (Duoneb) 3 ml RTQID NEB Last administered on 07/16/16 07:47; Start 07/12/16 at 20:00; Stop 07/16/16 at 08:38; Status DC Methylprednisolone Sodium Succinate (Solu-Medrol 40mg Vial) 60 mg 1X ONCE IV Last administered on 07/12/16 16:06; Start 07/12/16 at 16:30; Stop 07/12/16 at 16:31; Status DC Methylprednisolone Sodium Succinate (Solu-Medrol 40mg Vial) 60 mg DAILY IV ; Start 07/13/16 at 09:00; Stop 07/13/16 at 09:00; Status DC Pantoprazole Sodium (Protonix Vial) 40 mg DAILY IVP Last administered on 08:43; Start 07/13/16 at 09:00; Stop 07/17/16 at 20:37; Status DC Diphenhydramine HCl 25 mg 25 mg PRN Q6HRS PRN IVP ANAPHYLAXIS Last administered on 07/12/16 16:06; Start 07/12/16 at 16:00 Sodium Chloride (Iv Sodium Chloride 0.9% 1000ml Bag) 1,000 ml @ 150 mls/hr Q6H40M IV Last administered on 07/14/16 01:21; Start 07/12/16 at 16:30; Stop 07/14/16 at 09:31; Status DC Albuterol/ Ipratropium (Duoneb) 3 ml QID NEB ; Start 07/12/16 at 17:00; Status UNV Albuterol Sulfate (Ventolin Neb Soln) 2.5 mg PRN Q2HR PRN NEB SHORTNESS OF BREATH Last administered on 07/19/16 11:20; Start 07/12/16 at 16:00 Insulin Aspart (Novolog) 0-9 UNITS QID SQ Last administered on 07/14/16 08:37 ; Start 07/12/16 at 17:00; Stop 07/14/16 at 09:31; Status DC Dextrose 12.5 gm PRN Q15MIN PRN IV SEE COMMENTS; Start 07/12/16 at 16:00; Stop 07/15/16 at 12:46; Status DC Insulin Detemir (Levemir) 15 units QHS SQ ; Start 07/12/16 at 21:00; Stop at 21:00; Status DC Enoxaparin Sodium (Lovenox 40mg Syringe) 40 mg DAILY SQ Last administered on 08:54; Start 07/12/16 at 16:30; Stop 07/15/16 at 14:28; Status DC Insulin Detemir (Levemir) 20 units QHS SQ Last administered on 07/12/16 23:49 ; Start 07/12/16 at 21:00; Stop 07/13/16 at 15:18; Status DC Succinylcholine Chloride 200 mg 200 mg STK-MED ONCE .ROUTE ; Start 07/12/16 at 17:46; Stop 07/12/16 at 17:47; Status DC Propofol (Diprivan) 100 ml @ As Directed STK-MED ONCE IV ; Start 07/12/16 at 17 :46; Stop 07/12/16 at 17:47; Status DC Lidocaine HCl 100 mg STK-MED ONCE .ROUTE ; Start 07/12/16 at 18:02; Stop at 18:03; Status DC Ketamine HCl 500 mg 1X ONCE IV ; Start 07/12/16 at 18:30; Stop 07/12/16 at 18: 31; Status DC Midazolam HCl (Versed) 5 mg STK-MED ONCE .ROUTE ; Start 07/12/16 at 18:14; Stop 07/12/16 at 18:15; Status DC Midazolam HCl (Versed) 2 mg 1X ONCE IV ; Start 07/12/16 at 18:30; Stop at 18:31; Status DC Glycopyrrolate (Robinul) 1 mg 1X ONCE IV ; Start 07/12/16 at 18:30; Stop at 18:31; Status DC Oxymetazoline HCl (Afrin) 2 spray 1X ONCE NS ; Start 07/12/16 at 18:30; Stop at 18:31; Status DC Lidocaine HCl 30 ml STK-MED ONCE .ROUTE ; Start 07/12/16 at 18:19; Stop at 18:20; Status DC Vecuronium [place] 6 mg 6 mg PRN Q4HRS PRN IV ANXIETY / AGITATION Last administered on 07/12/16 19:55; Start 07/12/16 at 19:00; Stop 07/15/16 at 07:58 ; Status DC Propofol (Diprivan) 100 ml @ 0 mls/hr CONT PRN IV SEE I/O RECORD Last administered on 07/14/16 13:42; Start 07/12/16 at 19:00; Stop 07/15/16 at 07:58 ; Status DC Insulin Aspart 10 units 10 units 1X ONCE SQ Last administered on 07/12/16 19: 41; Start 07/12/16 at 19:45; Stop 07/12/16 at 19:46; Status DC Vecuronium [place] 100 mg/ Dextrose 100 ml @ 0 mls/hr CONT PRN IV SEE I/O RECORD Last administered on 07/13/16 20:48; Start 07/12/16 at 21:00; Stop 07/14 at 09:31; Status DC Fentanyl Citrate (Fentanyl 600 Mcg/30 ml WORD PROCESSING OPERATOR) 30 ml @ 0 mls/hr CONT PRN IV PROTOCOL Last administered on 07/14/16 09:33; Start 07/12/16 at 22:00; Stop at 07:58; Status DC Chlorhexidine Gluconate (Peridex) 15 ml BID MM Last administered on 07/21/16 08:30; Start 07/13/16 at 09:00 Methylprednisolone Sodium Succinate (Solu-Medrol 125mg Vial) 125 mg BID IV Last administered on 07/14/16 21:02; Start 07/13/16 at 09:00; Stop 07/15/16 at 07:58; Status DC Rocuronium [place] (Zemuron) 50 mg STK-MED ONCE .ROUTE ; Start 07/12/16 at 15:00 ; Stop 07/13/16 at 08:54; Status DC Glycopyrrolate (Robinul) 1 mg STK-MED ONCE .ROUTE ; Start 07/12/16 at 15:00; Stop 07/13/16 at 08:54; Status DC Lidocaine HCl 30 ml STK-MED ONCE .ROUTE ; Start 07/12/16 at 18:00; Stop at 09:05; Status DC Midazolam HCl (Versed) 5 mg STK-MED ONCE .ROUTE ; Start 07/12/16 at 18:00; Stop 07/13/16 at 09:05; Status DC Propofol (Diprivan) 1,000 mg STK-MED ONCE IV ; Start 07/12/16 at 18:00; Stop at 09:05; Status DC Succinylcholine Chloride (Anectine) 200 mg STK-MED ONCE .ROUTE ; Start 07/12/16 at 18:00; Stop 07/13/16 at 09:05; Status DC Multi-Ingred Cream/Lotion/Oil/ Oint (Artificial Tears Eye Oint) 1 margie PRN Q1HR PRN OU DRY EYE Last administered on 07/13/16 15:45; Start 07/13/16 at 11:00 Ketamine HCl 500 mg STK-MED ONCE .ROUTE ; Start 07/12/16 at 18:30; Stop at 12:05; Status DC Insulin Aspart (Novolog) 10 units 1X STAT SQ Last administered on 07/13/16 12 :36; Start 07/13/16 at 12:17; Stop 07/13/16 at 12:20; Status DC Insulin Aspart (Novolog) 10 units 1X ONCE SQ Last administered on 07/13/16 14 :31; Start 07/13/16 at 14:30; Stop 07/13/16 at 14:31; Status DC Insulin Detemir (Levemir) 40 units QHS SQ Last administered on 07/13/16 20:50 ; Start 07/13/16 at 21:00; Stop 07/14/16 at 09:31; Status DC Benzocaine (Hurricaine One) 1 spray STK-MED ONCE .ROUTE ; Start 07/12/16 at 12: 00; Stop 07/13/16 at 16:00; Status DC Lidocaine HCl 5 margie 5 margie STK-MED ONCE TP ; Start 07/12/16 at 12:00; Stop at 16:00; Status DC Insulin Human Regular/Sodium Chloride (Novolin R Vial/ Iv Normal Saline 150ml) 151.5 ml @ 0 mls/hr CONT PRN IV SEE I/O RECORD Last administered on 07/14/16 10:01; Start 07/14/16 at 09:30; Stop 07/15/16 at 07:58; Status DC Info 1 each 1 each PRN DAILY PRN MC SEE COMMENTS Last administered on 08:27; Start 07/14/16 at 09:30; Stop 07/19/16 at 16:30; Status DC Magnesium Sulfate/ Dextrose 50 ml @ 25 mls/hr PRN DAILY PRN IV for Mag < 1.7 on am labs; Start 07/14/16 at 11:15; Stop 07/15/16 at 07:58; Status DC Sodium Chloride 500 ml @ 500 mls/hr QID PRN IV UO< 30cc/hr over previous 6hrs ; Start 07/14/16 at 11:15; Stop 07/14/16 at 11:26; Status DC Sodium Chloride 500 ml @ 500 mls/hr PRN QID PRN IV UO< 30cc/hr over previous 6hrs Last administered on 07/16/16 10:00; Start 07/14/16 at 11:26 Ceftriaxone Sodium 1 gm/ Sodium Chloride 50 ml @ 100 mls/hr Q24H IV Last administered on 07/19/16 12:25; Start 07/14/16 at 12:00; Stop 07/20/16 at 12:29 ; Status DC Sodium Chloride/ Magnesium Sulfate/ Calcium Gluconate/ Multivitamins/ Chromium/ Copper/ Manganese/Seleni/ Zn/Total Parenteral Nutrition/Amino Acids/Dextrose ( Sodium Chloride/ Infuvite Adult/ Multitrace-5 Conc/ Tpn - Tpn Fluid/ Trophamine / Dextrose 70%-Water Iv Soln) 1,512 ml @ 63 mls/hr TPN CONT IV Last administered on 07/14/16 22:29; Start 07/14/16 at 22:00; Stop 07/15/16 at 21:59 ; Status DC Hydralazine HCl (Apresoline) 10 mg PRN Q4HRS PRN IVP ELEVATED BP, SEE COMMENTS Last administered on 07/21/16 12:16; Start 07/14/16 at 22:30 Methylprednisolone Sodium Succinate (Solu-Medrol 125mg Vial) 125 mg DAILY IV Last administered on 07/15/16 08:55; Start 07/15/16 at 09:00; Stop 07/16/16 at 08:35; Status DC Insulin Aspart (Novolog) 0-9 UNITS TIDWMEALS SQ Last administered on 07/15/16 16:16; Start 07/15/16 at 08:00; Stop 07/16/16 at 07:16; Status DC Dextrose 12.5 gm PRN Q15MIN PRN IV SEE COMMENTS; Start 07/15/16 at 08:00; Stop 07/19/16 at 10:53; Status DC Insulin Detemir (Levemir) 20 units QHS SQ Last administered on 07/15/16 21:48 ; Start 07/15/16 at 21:00; Stop 07/16/16 at 07:16; Status DC Insulin Aspart (Novolog) 10 units TIDAC SQ ; Start 07/15/16 at 11:30; Stop 07/16 at 07:16; Status DC Sodium Polystyrene Sulfonate (Kayexalate) 30 gm 1X ONCE PO ; Start 07/15/16 at 08:00; Stop 07/15/16 at 08:08; Status DC Hydrochlorothiazide (Microzide) 12.5 mg DAILY PO ; Start 07/15/16 at 09:00; Stop 07/16/16 at 07:39; Status DC Isosorbide Mononitrate (Imdur) 120 mg DAILY PO ; Start 07/15/16 at 09:00; Stop 07/15/16 at 09:00; Status DC Diltiazem HCl (Cardizem 24hr Cd) 240 mg DAILY PO ; Start 07/15/16 at 09:00; Stop 07/16/16 at 07:39; Status DC Guaifenesin (Mucinex) 600 mg BID PO ; Start 07/15/16 at 09:00; Stop 07/16/16 at 07:39; Status DC Mupirocin (Bactroban) 1 margie BID NS Last administered on 07/21/16 08:30; Start 07/15/16 at 09:00 Isosorbide Mononitrate (Imdur) 120 mg DAILY PO ; Start 07/15/16 at 09:00; Stop 07/16/16 at 07:39; Status DC Sodium Bicarbonate 50 meq 1X ONCE IV Last administered on 07/15/16 15:22; Start 07/15/16 at 10:45; Stop 07/15/16 at 10:46; Status DC Sodium Bicarbonate 50 meq 50 meq STK-MED ONCE .ROUTE ; Start 07/15/16 at 10:34; Stop 07/15/16 at 10:35; Status DC Dopamine HCl/ Dextrose 250 ml @ As Directed STK-MED ONCE IV ; Start 07/15/16 at 10:37; Stop 07/15/16 at 10:38; Status DC Midazolam HCl (Versed) 5 mg STK-MED ONCE .ROUTE ; Start 07/15/16 at 10:41; Stop 07/15/16 at 10:42; Status DC Iohexol 100 ml 100 ml STK-MED ONCE .ROUTE ; Start 07/15/16 at 10:45; Stop at 10:46; Status DC Heparin Sodium/ Sodium Chloride 1,500 ml @ As Directed STK-MED ONCE .ROUTE ; Start 07/15/16 at 10:45; Stop 07/15/16 at 10:46; Status DC Lidocaine HCl 20 ml 20 ml STK-MED ONCE .ROUTE ; Start 07/15/16 at 10:45; Stop at 10:46; Status DC Dopamine HCl/ Dextrose 250 ml @ 16.255 mls/ hr CONT PRN IV SEE I/O RECORD Last administered on 07/16/16 23:10; Start 07/15/16 at 11:00 Sodium Chloride 1,000 ml @ 1,000 mls/hr 1X ONCE IV Last administered on 11:00; Start 07/15/16 at 11:00; Stop 07/15/16 at 11:59; Status DC Norepinephrine Bitartrate/Sodium Chloride (Levophed Vial/ Iv Sodium Chloride 0.9 % 250ml) 258 ml @ 0 mls/hr CONT PRN IV SEE I/O RECORD Last administered on 07/17 00:51; Start 07/15/16 at 11:00 Midazolam HCl (Versed) 5 mg STK-MED ONCE .ROUTE ; Start 07/15/16 at 10:54; Stop 07/15/16 at 10:55; Status DC Fentanyl Citrate (Fentanyl 2ml Vial) 100 mcg STK-MED ONCE .ROUTE ; Start at 11:02; Stop 07/15/16 at 11:03; Status DC Vecuronium [place] 10 mg 10 mg STK-MED ONCE IV ; Start 07/15/16 at 11:03; Stop 07/15/16 at 11:04; Status DC Midazolam HCl (Versed 100mg/ 100ml Premix) 100 ml @ As Directed STK-MED ONCE IV ; Start 07/15/16 at 11:03; Stop 07/15/16 at 11:04; Status DC Iohexol (Omnipaque 300 Mg/ml) 112 ml 1X ONCE IART Last administered on 11:56; Start 07/15/16 at 12:00; Stop 07/15/16 at 12:01; Status DC Lidocaine HCl 10 ml 1X ONCE IJ Last administered on 07/15/16 11:57; Start at 12:00; Stop 07/15/16 at 12:01; Status DC Heparin Sodium/ Sodium Chloride 1000 unit 1,000 unit 1X ONCE IART ; Start 07/15 at 12:00; Stop 07/15/16 at 12:01; Status DC Sodium Chloride/ Magnesium Sulfate/ Calcium Gluconate/ Multivitamins/ Chromium/ Copper/ Manganese/Seleni/ Zn/Total Parenteral Nutrition/Amino Acids/Dextrose ( Sodium Chloride/ Infuvite Adult/ Multitrace-5 Conc/ Tpn - Tpn Fluid/ Trophamine / Dextrose 70%-Water Iv Soln) 1,512 ml @ 63 mls/hr TPN CONT IV Last administered on 07/15/16 21:27; Start 07/15/16 at 22:00; Stop 07/16/16 at 21:59 ; Status DC Iohexol (Omnipaque 300 Mg/ml) 75 ml 1X ONCE IV Last administered on 07/15/16 13:43; Start 07/15/16 at 13:15; Stop 07/15/16 at 13:16; Status DC Info (Do NOT chart on this entry -- for MONITORING) 1 each PRN DAILY PRN MC SEE COMMENTS; Start 07/15/16 at 13:15; Stop 07/17/16 at 13:14; Status DC Heparin Sodium (Porcine) 7000 unit 7,000 unit 1X ONCE IV Last administered on 07/15/16 15:27; Start 07/15/16 at 14:45; Stop 07/15/16 at 14:46; Status DC Heparin Sodium/ Dextrose 500 ml @ 0 mls/hr CONT PRN IV SEE I/O RECORD Last administered on 07/17/16 18:41; Start 07/15/16 at 14:30; Stop 07/18/16 at 10:21 ; Status DC Heparin Sodium (Porcine) 2,600 unit PRN Q6HRS PRN IV FOR UFH LEVEL LESS THAN 0.2; Start 07/15/16 at 14:30; Stop 07/18/16 at 10:21; Status DC Heparin Sodium (Porcine) 1,300 unit PRN Q6HRS PRN IV FOR UFH LEVEL 0.2 - 0.29; Start 07/15/16 at 14:30; Stop 07/18/16 at 10:21; Status DC Warfarin Sodium (Coumadin Per Pharmacy) 1 each PRN DAILY PRN MC PER PROTOCOL; Start 07/15/16 at 14:30; Stop 07/15/16 at 14:30; Status DC Sodium Bicarbonate 50 meq 50 meq 1X ONCE IV Last administered on 07/15/16 16: 30; Start 07/15/16 at 16:30; Stop 07/15/16 at 16:34; Status DC Alteplase, Recombinant (Activase) 100 ml @ 50 mls/hr 1X ONCE IV Last administered on 07/15/16 17:30; Start 07/15/16 at 17:30; Stop 07/15/16 at 19:29 ; Status DC Fentanyl Citrate (Fentanyl 2ml Vial) 25 mcg PRN Q1HR PRN IV COMM; Start at 22:30; Stop 07/16/16 at 07:17; Status DC Fentanyl Citrate (Fentanyl 2ml Vial) 50 mcg PRN Q1HR PRN IV COMM Last administered on 07/16/16 05:30; Start 07/15/16 at 22:30; Stop 07/16/16 at 07:17 ; Status DC Scopolamine (Transderm-Scop) 1 patch Q3DAYS TD Last administered on 07/21/16 08:30; Start 07/18/16 at 09:00 Scopolamine 1 patch 1 patch ONCE ONCE TD ; Start 07/15/16 at 23:30; Stop at 23:31; Status DC Sodium Chloride 1,000 ml @ 1,000 mls/hr 1X ONCE IV Last administered on 02:38; Start 07/16/16 at 01:00; Stop 07/16/16 at 01:59; Status DC Midazolam HCl 100 ml @ As Directed STK-MED ONCE IV ; Start 07/16/16 at 01:00; Stop 07/16/16 at 01:01; Status DC Midazolam HCl 100 ml @ 0 mls/hr CONT PRN IV SEE I/O RECORD Last administered on 07/19/16 07:52; Start 07/16/16 at 01:15 Vasopressin 40 unit/Dextrose 102 ml @ 6 mls/hr CONT PRN IV SEE I/O RECORD Last administered on 07/17/16 13:33; Start 07/16/16 at 05:00 Insulin Human Regular 150 unit/ Sodium Chloride 151.5 ml @ 0 mls/hr CONT PRN IV SEE I/O RECORD Last administered on 07/17/16 02:26; Start 07/16/16 at 05:00 ; Stop 07/17/16 at 10:10; Status DC Fentanyl Citrate (Fentanyl 600 Mcg/30 ml WORD PROCESSING OPERATOR) 30 ml @ 0 mls/hr CONT PRN IV PROTOCOL Last administered on 07/19/16 06:15; Start 07/16/16 at 07:15 Vecuronium [place] (Norcuron Bolus) 10 mg STK-MED ONCE IV ; Start 07/15/16 at 11 :00; Stop 07/16/16 at 08:06; Status DC Fentanyl Citrate (Fentanyl 2ml Vial) 100 mcg STK-MED ONCE .ROUTE ; Start at 11:00; Stop 07/16/16 at 08:06; Status DC Midazolam HCl (Versed) 10 mg STK-MED ONCE .ROUTE ; Start 07/15/16 at 11:00; Stop 07/16/16 at 08:06; Status DC Dopamine HCl/ Dextrose 400 mg STK-MED ONCE IV ; Start 07/15/16 at 11:00; Stop at 08:06; Status DC Sodium Bicarbonate 50 meq STK-MED ONCE .ROUTE ; Start 07/15/16 at 11:00; Stop at 08:06; Status DC Hydrocortisone Sodium Succinate (Solu-Cortef) 100 mg Q8HRS IV Last administered on 07/19/16 05:50; Start 07/16/16 at 09:00; Stop 07/19/16 at 09:30 ; Status DC Sodium Polystyrene Sulfonate 30 gm 30 gm 1X ONCE PO Last administered on 08:41; Start 07/16/16 at 08:30; Stop 07/16/16 at 08:34; Status DC Albumin Human (Plasmanate) 500 ml @ 125 mls/hr PRN Q6HRS PRN IV for CVP < 10; MAP < 65 Last administered on 07/17/16 08:12; Start 07/16/16 at 08:30 Sodium Bicarbonate 50 meq 1X ONCE IV Last administered on 07/16/16 08:41; Start 07/16/16 at 08:45; Stop 07/16/16 at 08:46; Status DC Info (Anti-Coagulation Monitoring By Pharmacy) 1 each PRN DAILY PRN MC SEE COMMENTS; Start 07/16/16 at 08:45; Status Cancel Ipratropium [place] (Atrovent) 0.5 mg RTQID NEB Last administered on 07/21/16 08:43; Start 07/16/16 at 12:00 Lidocaine/Sodium Bicarbonate (Buffered Lidocaine 1%) 3 ml 1X ONCE IJ Last administered on 07/16/16 10:43; Start 07/16/16 at 09:15; Stop 07/16/16 at 09:16 ; Status DC Heparin Sodium/ Sodium Chloride 60 unit 1X ONCE IV Last administered on 10:44; Start 07/16/16 at 09:15; Stop 07/16/16 at 09:16; Status DC Heparin Sodium (Porcine) 2500 unit 2,500 unit 1X ONCE INT CAT Last administered on 07/16/16 10:44; Start 07/16/16 at 09:15; Stop 07/16/16 at 09:16 ; Status DC Sodium Chloride 40 meq/Sodium Acetate 40 meq/ Magnesium Sulfate 8 meq/Calcium Gluconate 5 meq/ Multivitamins 10 ml/Chromium/ Copper/Manganese/ Seleni/Zn 1 ml / Insulin Human Regular 10 unit/ Total Parenteral Nutrition/Amino Acids/Dextrose / Fat Emulsion Intravenous 1,512 ml @ 63 mls/hr TPN CONT IV Last administered on 07/16/16 21:53; Start 07/16/16 at 22:00; Stop 07/17/16 at 21:59 ; Status DC Pantoprazole Sodium 80 mg/ Sodium Chloride 100 ml @ 10 mls/hr Q10H IV Last administered on 07/21/16 10:10; Start 07/17/16 at 06:45; Stop 07/21/16 at 12:21 ; Status DC Sodium Acetate/ Potassium Acetate/ Magnesium Sulfate/ Calcium Gluconate/ Multivitamins/ Chromium/Copper/ Manganese/Seleni/ Zn/Insulin Human Regular/ Total Parenteral Nutrition/Amino Acids/Dextrose/ Fat Emulsion Intravenous ( Calcium Gluconate/ Infuvite Adult/ Multitrace-5 Conc/ Novolin R Vi... 1,512 ml @ 63 mls/hr TPN CONT IV Last administered on 07/17/16 21:49; Start 07/17/16 at 22:00; Stop 07/18/16 at 21:59; Status DC Insulin Detemir (Levemir) 25 units BID SQ Last administered on 07/17/16 20:51 ; Start 07/17/16 at 10:30; Stop 07/18/16 at 08:12; Status DC Insulin Aspart (Novolog) 0-9 UNITS TIDWMEALS SQ Last administered on 07/18/16 10:03; Start 07/17/16 at 12:00; Stop 07/18/16 at 11:55; Status DC Dextrose 12.5 gm PRN Q15MIN PRN IV SEE COMMENTS; Start 07/17/16 at 10:15; Status UNV Iohexol (Omnipaque 300 Mg/ml) 100 ml STK-MED ONCE .ROUTE ; Start 07/17/16 at 10: 45; Stop 07/17/16 at 10:46; Status DC Lidocaine/Sodium Bicarbonate 20 ml 20 ml STK-MED ONCE IJ ; Start 07/17/16 at 10: 45; Stop 07/17/16 at 10:46; Status DC Heparin Sodium/ Sodium Chloride 500 ml @ As Directed STK-MED ONCE .ROUTE ; Start 07/17/16 at 10:46; Stop 07/17/16 at 10:47; Status DC Heparin Sodium/ Sodium Chloride 1,000 unit 1X ONCE IART Last administered on 11:27; Start 07/17/16 at 11:15; Stop 07/17/16 at 11:26; Status DC Lidocaine/Sodium Bicarbonate (Buffered Lidocaine 1%) 3 ml 1X ONCE IJ Last administered on 07/17/16 11:15; Start 07/17/16 at 11:15; Stop 07/17/16 at 11:26 ; Status DC Iohexol (Omnipaque 300 Mg/ml) 40 ml 1X ONCE IART Last administered on 11:26; Start 07/17/16 at 11:15; Stop 07/17/16 at 11:26; Status DC Info (Do NOT chart on this entry -- for MONITORING) 1 each PRN DAILY PRN MC SEE COMMENTS; Start 07/17/16 at 11:30; Stop 07/19/16 at 11:29; Status DC Calcium Chloride 2,000 mg STK-MED ONCE IV ; Start 07/16/16 at 13:02; Stop at 13:03; Status DC Epinephrine HCl 4 mg STK-MED ONCE .ROUTE ; Start 07/16/16 at 13:02; Stop at 13:03; Status DC Furosemide 40 mg 40 mg 1X ONCE IVP Last administered on 07/17/16 16:45; Start 07/17/16 at 16:45; Stop 07/17/16 at 16:47; Status DC Propofol (Diprivan) 100 ml @ As Directed STK-MED ONCE IV ; Start 07/17/16 at 16 :36; Stop 07/17/16 at 16:37; Status DC Insulin Detemir (Levemir) 35 units BID SQ Last administered on 07/18/16 10:00 ; Start 07/18/16 at 09:00; Stop 07/18/16 at 11:55; Status DC Insulin Aspart (Novolog) 10 units Q6HRS SQ ; Start 07/18/16 at 12:00; Stop 07/18 at 12:00; Status DC Insulin Aspart 20 units 20 units 1X ONCE SQ Last administered on 07/18/16 10: 02; Start 07/18/16 at 08:15; Stop 07/18/16 at 11:56; Status DC Sodium Acetate/ Potassium Acetate/ Magnesium Sulfate/ Calcium Gluconate/ Multivitamins/ Chromium/Copper/ Manganese/Seleni/ Zn/Insulin Human Regular/ Total Parenteral Nutrition/Amino Acids/Dextrose/ Fat Emulsion Intravenous ( Calcium Gluconate/ Infuvite Adult/ Multitrace-5 Conc/ Novolin R Vi... 1,512 ml @ 63 mls/hr TPN CONT IV Last administered on 07/18/16 22:03; Start 07/18/16 at 22:00; Stop 07/19/16 at 21:59; Status DC Atropine Sulfate 0.5 mg 0.5 mg STK-MED ONCE .ROUTE ; Start 07/18/16 at 09:43; Stop 07/18/16 at 09:44; Status DC Insulin Human Regular/Sodium Chloride (Novolin R Vial/ Iv Normal Saline 150ml) 151.5 ml @ 0 mls/hr CONT PRN IV SEE I/O RECORD Last administered on 07/18/16 13:54; Start 07/18/16 at 11:45; Stop 07/19/16 at 10:27; Status DC Dextrose 12.5 gm 12.5 gm PRN Q15MIN PRN IV LOW BLOOD SUGAR; Start 07/18/16 at 11:45; Stop 07/19/16 at 10:53; Status DC Potassium Chloride (KCl Premix 20meq) 50 ml @ 25 mls/hr Q2H IV Last administered on 07/19/16 11:09; Start 07/19/16 at 09:30; Stop 07/19/16 at 13:29 ; Status DC Propofol (Diprivan) 1,000 mg STK-MED ONCE IV ; Start 07/17/16 at 16:36; Stop at 08:22; Status DC Atropine Sulfate 1 mg STK-MED ONCE .ROUTE ; Start 07/18/16 at 09:43; Stop at 08:53; Status DC Hydrocortisone Sodium Succinate (Solu-Cortef) 50 mg Q8HRS IV Last administered on 07/21/16 05:24; Start 07/19/16 at 14:00 Heparin Sodium (Porcine) 7400 unit 7,400 unit 1X ONCE IV Last administered on 07/19/16 10:03; Start 07/19/16 at 09:45; Stop 07/19/16 at 09:53; Status DC Heparin Sodium/ Dextrose 500 ml @ 0 mls/hr CONT PRN IV SEE I/O RECORD Last administered on 07/20/16 07:04; Start 07/19/16 at 09:45 Heparin Sodium (Porcine) 2,800 unit PRN Q6HRS PRN IV FOR UFH LEVEL LESS THAN 0.2; Start 07/19/16 at 09:45 Heparin Sodium (Porcine) 1,400 unit PRN Q6HRS PRN IV FOR UFH LEVEL 0.2 - 0.29 Last administered on 07/20/16 12:06; Start 07/19/16 at 09:45 Warfarin Sodium (Coumadin Per Pharmacy) 1 each PRN DAILY PRN MC PER PROTOCOL Last administered on 07/21/16 09:01; Start 07/19/16 at 09:45 Insulin Aspart (Novolog) 0-5 UNITS TIDWMEALS SQ Last administered on 07/19/16 12:02; Start 07/19/16 at 12:00; Stop 07/19/16 at 16:45; Status DC Dextrose 12.5 gm 12.5 gm PRN Q15MIN PRN IV SEE COMMENTS; Start 07/19/16 at 10: 30 Potassium Acetate/ Magnesium Sulfate/ Calcium Gluconate/ Multivitamins/ Chromium /Copper/ Manganese/Seleni/ Zn/Insulin Human Regular/Total Parenteral Nutrition/ Amino Acids/Dextrose/ Fat Emulsion Intravenous (Calcium Gluconate/ Infuvite Adult/ Multitrace-5 Conc/ Novolin R Vial/ Tpn - Tpn Flu... 1,200 ml @ 50 mls/ hr TPN CONT IV ; Start 07/19/16 at 22:00; Stop 07/19/16 at 22:00; Status DC Insulin Aspart (Novolog) 0-5 UNITS Q6HRS SQ Last administered on 07/21/16 12: 04; Start 07/19/16 at 18:00 Warfarin Sodium (Coumadin) 4 mg 1X WARF ONCE PO Last administered on 17:26; Start 07/19/16 at 17:02; Stop 07/19/16 at 17:03; Status DC Fentanyl Citrate (Fentanyl 2ml Vial) 50 mcg PRN Q2HR PRN IV PAIN Last administered on 07/21/16 11:19; Start 07/20/16 at 02:45 Warfarin Sodium (Coumadin) 5 mg 1X WARF ONCE PO Last administered on 17:09; Start 07/20/16 at 16:00; Stop 07/20/16 at 16:01; Status DC Midazolam HCl 1 mg 1 mg PRN Q1HR PRN IV sedation on vent; Start 07/20/16 at 11: 15 Sodium Chloride (Iv Sodium Chloride 0.9% 1000ml Bag) 1,000 ml @ 75 mls/hr [id number] IV Last administered on 07/21/16 00:11; Start 07/20/16 at 11:15 Midazolam HCl (Versed) 2 mg PRN Q1HR PRN IV sedation on vent; Start 07/20/16 at 11:15 Midazolam HCl (Versed) 3 mg PRN Q1HR PRN IV sedation on vent; Start 07/20/16 at 11:15 Midazolam HCl (Versed) 4 mg PRN Q1HR PRN IV sedation on vent Last administered on 07/21/16 10:06; Start 07/20/16 at 11:15 Insulin Detemir (Levemir) 15 units QHS SQ Last administered on 07/20/16 20:47 ; Start 07/20/16 at 21:00 Warfarin Sodium (Coumadin) 5 mg 1X WARF ONCE PO ; Start 07/21/16 at 16:00; Stop 07/21/16 at 16:01 Pantoprazole Sodium (Protonix Vial) 40 mg DAILYAC IVP ; Start 07/22/16 at 07:30 Active Scripts Active Levemir Flextouch (Insulin Detemir) 100 Unit/1 Ml Insuln.pen 20 Units SQ QHS 30 Days Novolog Flexpen (Insulin Aspart) 100 Unit/1 Ml Insuln.pen 10 Units SQ TIDAC 30 Days Reported Advair 100-50 Diskus (Fluticasone/Salmeterol) 1 Each Disk.w.dev 1 Puff IH BID Spiriva Respimat (Tiotropium [place]) 4 Gm Mist.inhal 2.5 Gm IH DAILY Symbicort 160-4.5 Mcg Inhaler (Budesonide/Formoterol Fumarate) 10.2 Gm Hfa.aer.ad 2 Puff IH BID Atorvastatin Calcium 20 Mg Tablet 20 Mg PO HS Lisinopril-Hctz 10-12.5 Mg Tab (Lisinopril/Hydrochlorothiazide) 1 Each Tablet 1 Tab PO DAILY Isosorbide Mononitrate Er (Isosorbide Mononitrate) 120 Mg Tab.er.24h 120 Mg PO DAILY Novolin N (Nph, Human Insulin Isophane) 100 Unit/1 Ml Vial 0 SQ Promethazine-Codeine Syrup (Promethazine Hcl/Codeine) 118 Ml Syrup 5 Ml PO Q4- 6HRS Diltiazem 24HR Cd (Diltiazem Hcl) 240 Mg Cap.er.24h 240 Mg PO DAILY NITROGLYCERIN SubLingual (Nitroglycerin) 0.4 Mg Tab.subl 0.4 Mg SL PRN Q5MIN PRN Atorvastatin Calcium 40 Mg Tablet 40 Mg PO HS Vitals/I & O Vital Sign - Last 24 Hours 07/20/16 07/20/16 07/20/16 07/20/16 12:38 13:00 13:49 14:00 Temp 98.1 98.1 98.1 98.1 Pulse 80 85 78 Resp 22 22 22 B/P 131/64 145/68 131/69 Pulse Ox 99 100 100 O2 Delivery Ventilator Ventilator Ventilator 07/20/16 07/20/16 07/20/16 07/20/16 14:10 14:47 15:00 15:11 Temp 98.2 98.3 98.3 98.2 98.3 98.3 Pulse 83 73 73 78 Resp 22 22 22 22 B/P 159/79 138/73 156/81 156/81 Pulse Ox 100 O2 Delivery Ventilator 07/20/16 07/20/16 07/20/16 07/20/16 15:52 16:00 16:00 17:00 Pulse 72 78 Resp 22 22 B/P 149/90 158/75 Pulse Ox 100 100 100 O2 Delivery Ventilator Ventilator Mechanical Ventilator Ventilator 07/20/16 07/20/16 07/20/16 07/20/16 18:00 18:14 19:00 19:16 Pulse 72 75 Resp 22 22 B/P 150/68 154/72 Pulse Ox 100 99 100 100 O2 Delivery Ventilator Ventilator Ventilator Ventilator 07/20/16 07/20/16 07/20/16 07/20/16 19:37 20:00 20:59 21:00 Temp 98.2 98.2 Pulse 68 60 Resp 22 22 B/P 141/66 119/63 Pulse Ox 100 100 100 O2 Delivery Mechanical Ventilator Ventilator Ventilator Ventilator 07/20/16 07/20/16 07/20/16 07/20/16 22:00 23:00 23:05 23:57 Pulse 61 62 Resp 22 22 B/P 136/64 153/67 Pulse Ox 100 100 100 O2 Delivery Ventilator Ventilator Ventilator Mechanical Ventilator 07/21/16 07/21/16 07/21/16 07/21/16 00:00 01:00 01:05 02:00 Temp 98.3 98.3 Pulse 56 62 56 Resp 22 22 22 B/P 135/67 158/72 129/67 Pulse Ox 100 100 100 100 O2 Delivery Ventilator Ventilator Ventilator Ventilator 07/21/16 07/21/16 07/21/1629/17 03:00 03:02 04:00 04:00 Temp 98.4 98.4 Pulse 64 55 Resp 22 22 B/P 168/74 173/83 Pulse Ox 100 100 100 O2 Delivery Ventilator Ventilator Ventilator Mechanical Ventilator 07/21/16 07/21/16 07/21/16 07/21/16 05:00 05:10 06:00 07:00 Pulse 52 59 57 Resp 22 22 22 B/P 149/70 141/70 160/81 Pulse Ox 100 100 100 100 O2 Delivery Ventilator Ventilator Ventilator Ventilator 07/21/16 07/21/16 07/21/16 07/21/16 08:00 08:00 08:30 09:00 Temp 98.2 98.2 Pulse 58 64 Resp 22 22 B/P 175/84 178/57 Pulse Ox 100 100 100 O2 Delivery Mechanical Ventilator Ventilator Ventilator Ventilator 07/21/16 07/21/16 07/21/16 07/21/16 09:08 09:38 10:00 11:00 Pulse 57 57 Resp 24 22 22 26 B/P 157/77 165/80 Pulse Ox 99 99 100 100 O2 Delivery Ventilator Ventilator Ventilator Ventilator 07/21/16 07/21/16 07/21/16 07/21/16 11:19 12:00 12:00 12:16 Temp 97.9 97.9 Pulse 56 62 Resp 27 23 B/P 170/75 170/75 Pulse Ox 99 100 O2 Delivery Ventilator Mechanical Ventilator Ventilator Intake and Output 07/20/16 07/20/16 07/21/16 15:00 23:00 07:00 Intake Total 355 ml 1922 ml 2194 ml Output Total 515 ml 679 ml 414 ml Balance -160 ml 1243 ml 1780 ml JUHI FRANCIS K III DO Jul 21, 2016 12:41
--- NOTE | 2016-07-21 14:32 | PDOC2 ---
PALLIATIVE CARE Palliative Care Note Palliative Care Patient continues to progress well with weaning trials. Plan extubation tomorrow. Patient alert. Mitts on ---attempting to reach ET tube. LTAC if insurance approves. Palliative Care will sign off. NORMAN GARCIA Jul 21, 2016 14:32
[2016-07-21] MEDS ORDERED: WARFARIN 5 MG TABLET. PO ONE (16:00)
[2016-07-21] MEDS: ATORVASTATIN CALCIUM 40 MG TABLET. PO SCH (21:48)
[2016-07-21] MEDS: DOCUSATE SODIUM 100 MG CAPSULE. PO SCH (21:48)
[2016-07-21] MEDS: INSULIN DETEMIR 300 UNITS/3 ML INSULN.PEN. SQ SCH (21:49)
[2016-07-21] MEDS ORDERED: FENTANYL PF 100 MCG/2 ML VIAL. ONE (22:18)
[2016-07-21 22:23] LABS: ALDOSTERONE <1.0 ng/dL (0.0-30.0)
[2016-07-21] MEDS ORDERED: MIDAZOLAM HCL/PF 2 MG/2 ML VIAL. ONE (23:45)
[2016-07-22] VITALS (24 sets, daily range): BP systolic 116–192; BP diastolic 54–100
[2016-07-22] MEDS ORDERED: FENTANYL PF 100 MCG/2 ML VIAL. ONE ×2 (00:36→03:14)
[2016-07-22] MEDS: FENTANYL PF 100 MCG/2 ML VIAL. IV PRN ×3 (00:38→05:13)
[2016-07-22] MEDS ORDERED: MIDAZOLAM HCL/PF 2 MG/2 ML VIAL. ONE ×4 (00:57→04:29)
[2016-07-22] MEDS: MIDAZOLAM HCL 2 MG/2 ML VIAL. IV PRN ×4 (00:59→04:32)
[2016-07-22] MEDS: IV NORMAL SALINE 1000ML BAG 1,000 ML IV SCH ×2 (04:32→16:35)
[2016-07-22] MEDS ORDERED: MIDAZOLAM HCL/PF 2 MG/2 ML VIAL. IV PRN ×4 (04:46→04:47)
[2016-07-22 05:33] LABS: HEMATOCRIT 26.2 % (39.0-53.0); HEMOGLOBIN 8.5 g/dL (13.0-17.5); RED BLOOD COUNT 3.01 x10^6/uL (4.30-5.70); RED CELL DISTRIBUTION WIDTH 14.9 % (11.5-14.5); WHITE BLOOD COUNT 13.3 x10^3/uL (4.0-11.0)
[2016-07-22] MEDS: HYDROCORTISONE SOD SUCC/PF 100 MG/2 ML VIAL. IV SCH ×3 (05:34→22:48)
[2016-07-22] MEDS: INSULIN ASPART 300 UNITS/3 ML INSULN.PEN SQ SCH ×3 (05:35→17:39)
[2016-07-22] MEDS: HEPARIN 25,000UTS/500ML PREMIX 500 ML IV PRN (05:36)
[2016-07-22 06:02] LABS: CALCIUM 8.1 mg/dL (8.5-10.1); CREATININE 1.2 mg/dL (0.7-1.3); GFR 71.8; POTASSIUM 3.5 mmol/L (3.5-5.1)
[2016-07-22] MEDS ORDERED: PANTOPRAZOLE IV PUSH 40 MG VIAL. IVP SCH (07:30)
[2016-07-22] MEDS: IPRATROPIUM BROMIDE 0.5 MG/2.5 ML NEBU. NEB SCH ×4 (07:46→19:48)
--- NOTE | 2016-07-22 07:48 | RAD ---
EXAM: Chest, single view. HISTORY: Respiratory failure. COMPARISON: 07/21/2016. FINDINGS: A frontal view of the chest is obtained. There are stable small to moderate right and small left pleural effusions with right middle lobe and bilateral lower lobe atelectasis or infiltrate. There is stable cardiomegaly. There is no pneumothorax. There is an endotracheal tube within the mid trachea. There is a feeding catheter extending beyond the inferior margin of the atakn-vd-tdal. There are right internal jugular catheter is in the superior right atrium. IMPRESSION: 1. Stable small to moderate right and small left pleural effusions with right middle lobe and bilateral lower lobe atelectasis or infiltrate. 2. Stable cardiomegaly. 3. Stable support lines and tubes.
[2016-07-22 07:56] LABS: INR 1.4 (0.8-1.1)
[2016-07-22] MEDS: DOCUSATE SODIUM 100 MG CAPSULE. PO SCH ×2 (08:36→20:54)
[2016-07-22] MEDS: hydrALAZINE 20 MG/ML VIAL. IVP PRN ×3 (08:39→20:54)
[2016-07-22] MEDS: CHLORHEXIDINE 0.12% 15 ML MOUTHWASH. MM SCH ×2 (08:39→19:52)
[2016-07-22] MEDS: MUPIROCIN 2 % NASAL OINTMENT 22GM TUBE. NS SCH ×2 (09:00→20:54)
--- NOTE | 2016-07-22 09:01 | PDOC ---
PULMONARY PROGRESS NOTES Subjective pt did ok on trial Vitals Vital Signs Date Time Temp Pulse Resp B/P Pulse Ox O2 Delivery O2 Flow Rate FiO2 07/22/16 08:39 77 189/90 07/22/16 07:47 100 Ventilator 07/22/16 06:00 22 07/22/16 04:00 97.9 97.9 07/21/16 17:25 10.0 General: Alert HEENT: Other (nc at orally intubated, nose clear, ) Lungs: Other (decrease bs) Cardiovascular: S1, S2 Abdomen: Soft, Non-tender, Other (no groin tenderness) Neuro Exam: Alert Extremities: Other (trace edema) Skin: Warm Labs Laboratory Tests Test 07/20/16 09:20 07/20/16 09:48 07/20/16 11:37 07/20/16 17:05 O2 Saturation 92% (92-99) Arterial Blood pH 7.34 (7.35-7.45) Arterial Blood pCO2 at Patient Temp 45mmHg (35-46) Arterial Blood pO2 at Patient Temp 74mmHg (65-108) Arterial Blood HCO3 24mmol/L (21-28) Arterial Blood Base Excess -2mmol/L (-3-3) FiO2 40 Heparin Anti-Xa Act, Unfractionated 0.28IU/mL (0.30-0.70) 0.53IU/mL (0.30-0.70) Glucose (Fingerstick) 326mg/dL (70-99) Hemoglobin 8.8g/dL (13.0-17.5) Test 07/20/16 17:31 07/20/16 23:00 07/20/16 23:47 07/21/16 05:15 Glucose (Fingerstick) 380mg/dL (70-99) 341mg/dL (70-99) 356mg/dL (70-99) Heparin Anti-Xa Act, Unfractionated 0.48IU/mL (0.30-0.70) Test 07/21/16 05:20 07/21/16 08:30 07/21/16 12:01 07/21/16 18:00 White Blood Count 12.4x10^3/uL (4.0-11.0) Red Blood Count 2.99x10^6/uL (4.30-5.70) Hemoglobin 8.6g/dL (13.0-17.5) Hematocrit 26.6% (39.0-53.0) Mean Corpuscular Volume 89fL (79-100) Mean Corpuscular Hemoglobin 29pg (25-35) Mean Corpuscular Hemoglobin Concent 32g/dL (31-37) Red Cell Distribution Width 14.7% (11.5-14.5) Platelet Count 160x10^3/uL (140-400) Prothrombin Time 15.7SEC (11.7-14.0) Prothromb Time International Ratio 1.3 (0.8-1.1) Heparin Anti-Xa Act, Unfractionated 0.47IU/mL (0.30-0.70) Sodium Level 142mmol/L (136-145) Potassium Level 3.5mmol/L (3.5-5.1) Chloride Level 108mmol/L (98-107) Carbon Dioxide Level 21mmol/L (21-32) Anion Gap 13 (6-14) Blood Urea Nitrogen 88mg/dL (8-26) Creatinine 1.7mg/dL (0.7-1.3) Estimated GFR (Cockcroft-Gault) 48.0 Glucose Level 394mg/dL (70-99) Calcium Level 8.0mg/dL (8.5-10.1) Phosphorus Level 4.4mg/dL (2.6-4.7) Albumin 1.9g/dL (3.4-5.0) O2 Saturation 98% (92-99) Arterial Blood pH 7.38 (7.35-7.45) Arterial Blood pCO2 at Patient Temp 36mmHg (35-46) Arterial Blood pO2 at Patient Temp 115mmHg (65-108) Arterial Blood HCO3 21mmol/L (21-28) Arterial Blood Base Excess -4mmol/L (-3-3) FiO2 40 Glucose (Fingerstick) 388mg/dL (70-99) 293mg/dL (70-99) Test 07/21/16 21:47 07/21/16 23:51 07/22/16 05:19 07/22/16 05:20 Glucose (Fingerstick) 301mg/dL (70-99) 241mg/dL (70-99) 329mg/dL (70-99) White Blood Count 13.3x10^3/uL (4.0-11.0) Red Blood Count 3.01x10^6/uL (4.30-5.70) Hemoglobin 8.5g/dL (13.0-17.5) Hematocrit 26.2% (39.0-53.0) Mean Corpuscular Volume 87fL (79-100) Mean Corpuscular Hemoglobin 28pg (25-35) Mean Corpuscular Hemoglobin Concent 33g/dL (31-37) Red Cell Distribution Width 14.9% (11.5-14.5) Platelet Count 165x10^3/uL (140-400) Prothrombin Time 16.0SEC (11.7-14.0) Prothromb Time International Ratio 1.4 (0.8-1.1) Heparin Anti-Xa Act, Unfractionated 0.43IU/mL (0.30-0.70) Sodium Level 145mmol/L (136-145) Potassium Level 3.5mmol/L (3.5-5.1) Chloride Level 110mmol/L (98-107) Carbon Dioxide Level 25mmol/L (21-32) Anion Gap 10 (6-14) Blood Urea Nitrogen 65mg/dL (8-26) Creatinine 1.2mg/dL (0.7-1.3) Estimated GFR (Cockcroft-Gault) 71.8 Glucose Level 357mg/dL (70-99) Calcium Level 8.1mg/dL (8.5-10.1) Laboratory Tests Test 07/21/16 12:01 07/21/16 18:00 07/21/16 21:47 07/21/16 23:51 Glucose (Fingerstick) 388mg/dL (70-99) 293mg/dL (70-99) 301mg/dL (70-99) 241mg/dL (70-99) Test 07/22/16 05:19 07/22/16 05:20 Glucose (Fingerstick) 329mg/dL (70-99) White Blood Count 13.3x10^3/uL (4.0-11.0) Red Blood Count 3.01x10^6/uL (4.30-5.70) Hemoglobin 8.5g/dL (13.0-17.5) Hematocrit 26.2% (39.0-53.0) Mean Corpuscular Volume 87fL (79-100) Mean Corpuscular Hemoglobin 28pg (25-35) Mean Corpuscular Hemoglobin Concent 33g/dL (31-37) Red Cell Distribution Width 14.9% (11.5-14.5) Platelet Count 165x10^3/uL (140-400) Prothrombin Time 16.0SEC (11.7-14.0) Prothromb Time International Ratio 1.4 (0.8-1.1) Heparin Anti-Xa Act, Unfractionated 0.43IU/mL (0.30-0.70) Sodium Level 145mmol/L (136-145) Potassium Level 3.5mmol/L (3.5-5.1) Chloride Level 110mmol/L (98-107) Carbon Dioxide Level 25mmol/L (21-32) Anion Gap 10 (6-14) Blood Urea Nitrogen 65mg/dL (8-26) Creatinine 1.2mg/dL (0.7-1.3) Estimated GFR (Cockcroft-Gault) 71.8 Glucose Level 357mg/dL (70-99) Calcium Level 8.1mg/dL (8.5-10.1) Medications Active Scripts Medications Dose Route/Sig Days Date Category Advair 100-50 Diskus (Fluticasone/Salmeterol) 1 Each Disk.w.dev 1 Puff IH BID 06/21/16 Reported Spiriva Respimat (Tiotropium [place]) 4 Gm Mist.inhal 2.5 Gm IH DAILY 06/21/16 Reported Symbicort 160-4.5 Mcg Inhaler (Budesonide/Formoterol Fumarate) 10.2 Gm Hfa.aer.ad 2 Puff IH BID 06/21/16 Reported Atorvastatin Calcium 20 Mg Tablet 20 Mg PO HS 06/21/16 Reported Lisinopril-Hctz 10-12.5 Mg Tab (Lisinopril/Hydrochlorothiazide) 1 Each Tablet 1 Tab PO DAILY 06/21/16 Reported Isosorbide Mononitrate Er (Isosorbide Mononitrate) 120 Mg Tab.er.24h 120 Mg PO DAILY 06/21/16 Reported Levemir Flextouch (Insulin Detemir) 100 Unit/1 Ml Insuln.pen 20 Units SQ QHS 30 11/24/15 Rx Novolog Flexpen (Insulin Aspart) 100 Unit/1 Ml Insuln.pen 10 Units SQ TIDAC 30 11/24/15 Rx Novolin N (Nph, Human Insulin Isophane) 100 Unit/1 Ml Vial 0 SQ 11/18/15 Reported Promethazine-Codeine Syrup (Promethazine Hcl/Codeine) 118 Ml Syrup 5 Ml PO Q4-6HRS 11/18/15 Reported Diltiazem 24HR Cd (Diltiazem Hcl) 240 Mg Cap.er.24h 240 Mg PO DAILY 11/18/15 Reported NITROGLYCERIN SubLingual (Nitroglycerin) 0.4 Mg Tab.subl 0.4 Mg SL PRN Q5MIN PRN 11/18/15 Reported Atorvastatin Calcium 40 Mg Tablet 40 Mg PO HS 11/18/[address] reviewed, 1. Widespread multifocal bilateral segmental pulmonary embolism, with nonocclusive lobar embolism involving the right lower and middle lobes. 2. Diffuse tree-in-bud opacification suggestive of acute bronchiolitis. Findings are less confluence than on the prior examination, but now involve the lower lobes. 3. Right heart enlargement with straightening of the interventricular septum possibly due to pulmonary hypertension. Correlate clinically and consider echocardiography if warranted. 4. Short segment high-grade stricture and/or focal obliteration of the right upper lobe bronchus. No adjacent mass or evidence of extrinsic compression. This is stable. CXR 07/19 chronic RLL pleural thickening/ ET high Impression . 1. Acute respiratory failure secondary to angioedema, self extubated 07/14, reintubated 07/15, s/p cardiopulmonary arrest, Acute extensive PE, DVT, s/p TPA 2. Acute extensive PE with shock, DVT, s/p TPA, off pressors 2. Lisinopril induced angioedema. resolved 3. Chronic obstructive pulmonary disease. 4. Hypertension. 5. Coronary artery disease. s/p emergent cath.no sig disease 6. BASIM, improving 7. anemia,improved, off AC since last night Plan . did ok on trial, pt self extubated himself during my presence in ICU, looks good post extubation, will monitor for now, may need a bronch in future d/w RN 1. CXR reviewed some effusion and atelectasis 2. Continue steroids, start taper 3. GI prophylaxis. 4. follow nephro rec 5. re-start Heparin protocol. follow Hb closely 6. Tube feeding for now, will need speech evaluation 7. NEBS CCT 30 minutes DOUGIE RIVAS MD Jul 22, 2016 09:01
[2016-07-22 09:02] LABS: HCO3 ABG 26 mmol/L (21-28); PCO2 ABG 45 mmHg (35-46); PH ABG 7.38 (7.35-7.45); PO2 ABG 100 mmHg (65-108); SAT O2 ABG 97 % (92-99)
[2016-07-22 09:04] LABS: FIO2 ABG 40
--- NOTE | 2016-07-22 11:12 | PDOC ---
Renal-Progress Notes Subjective Notes Notes REMAINS INTUBATED History of Present Illness Hx of present illness BETTER Vitals Vitals Vital Signs Date Time Temp Pulse Resp B/P Pulse Ox O2 Delivery O2 Flow Rate FiO2 07/22/16 10:00 90 22 152/65 99 Ventilator 07/22/16 08:00 98.2 98.2 07/21/16 17:25 10.0 Weight Weight [ ] I.O. Intake and Output Intake and Output 07/22/16 07:00 Intake Total 5365 ml Output Total 2272 ml Balance 3093 ml IV Total 2438 ml Tube Feeding 2242 ml Other 685 ml Output Urine Total 2272 ml Gastric Drainage Total 0 ml Labs Labs Laboratory Tests Test 07/21/16 12:01 07/21/16 18:00 07/21/16 21:47 07/21/16 23:51 Glucose (Fingerstick) 388mg/dL (70-99) 293mg/dL (70-99) 301mg/dL (70-99) 241mg/dL (70-99) Test 07/22/16 05:19 07/22/16 05:20 07/22/16 09:02 Glucose (Fingerstick) 329mg/dL (70-99) White Blood Count 13.3x10^3/uL (4.0-11.0) Red Blood Count 3.01x10^6/uL (4.30-5.70) Hemoglobin 8.5g/dL (13.0-17.5) Hematocrit 26.2% (39.0-53.0) Mean Corpuscular Volume 87fL (79-100) Mean Corpuscular Hemoglobin 28pg (25-35) Mean Corpuscular Hemoglobin Concent 33g/dL (31-37) Red Cell Distribution Width 14.9% (11.5-14.5) Platelet Count 165x10^3/uL (140-400) Prothrombin Time 16.0SEC (11.7-14.0) Prothromb Time International Ratio 1.4 (0.8-1.1) Heparin Anti-Xa Act, Unfractionated 0.43IU/mL (0.30-0.70) Sodium Level 145mmol/L (136-145) Potassium Level 3.5mmol/L (3.5-5.1) Chloride Level 110mmol/L (98-107) Carbon Dioxide Level 25mmol/L (21-32) Anion Gap 10 (6-14) Blood Urea Nitrogen 65mg/dL (8-26) Creatinine 1.2mg/dL (0.7-1.3) Estimated GFR (Cockcroft-Gault) 71.8 Glucose Level 357mg/dL (70-99) Calcium Level 8.1mg/dL (8.5-10.1) O2 Saturation 97% (92-99) Arterial Blood pH 7.38 (7.35-7.45) Arterial Blood pCO2 at Patient Temp 45mmHg (35-46) Arterial Blood pO2 at Patient Temp 100mmHg (65-108) Arterial Blood HCO3 26mmol/L (21-28) Arterial Blood Base Excess 1mmol/L (-3-3) FiO2 40 Micro Micro Microbiology 07/15/16 Blood Culture - Final, Complete NO GROWTH AFTER 5 DAYS 07/14/16 Urine Culture - Final, Complete 07/14/16 Urine Culture Result 1 (MARÍA) - Final, Complete 07/14/16 Urine Culture Result 2 (MARÍA) - Final, Complete 07/14/16 Antimicrobic Susceptibility - Final, Complete Review of Systems Constitutional: yes: no symptom reported Physical Exam General Appearance: no apparent distress Respiratory: decreased breath sounds Heart: S1S2 Abdomen: soft, bowel sounds present Genitourinary: bladder flat Extremities: pulses present Neurology: other (SEDATED) Assessment Assessment IMP BASIM-BETTER TODAY WITH CR DOWN TO 1.2 RESP FAILURE ANGIOEDEMA MILD HYPOKALEMIA-RESOLVED MILD HYPERNATREMIA-BETTER PE ANEMIA PLAN TOLERATING TF CONT IVF'S D/C TEMP HD CATHETER SUPPORTIVE CARE WILL FOLLOW UPDATED DAUGHTER ERIKA IBARRA MD Jul 22, 2016 11:12
--- NOTE | 2016-07-22 11:14 | PDOC ---
PROGRESS NOTES Chief Complaint Chief Complaint Angioedema - angioedema, likely 2/2 to ACEI; self extubated 07/14/16 - resolved - s/p CP arrest (PEA) sec to Multiple bilateral PE (07/15) - Non-occlusive thrombus, R leg (07/15) - COPD exacerbation - Low TSH levels in a critically ill patient - DM2; insulin requiring - Oliguric Hyperkalemic renal failure - Metabolic acidosis s/p arrest - Dyslipidemia on statin - Hypotensive shock, resolved and off pressors - Acute respiratory failure - intubated again (07/15) secondary to code blue ( PEA # 2) History of Present Illness History of Present Illness Seen in ICU this AM. Spontaneous respirations; O2 sat 99%. Is awake and moving arms. Following commands. BP 143/773. Pt tolerating tube feeding. Discussed case with RN. Glucose continues to be elevated into the 350s. Vitals Vitals Vital Signs Date Time Temp Pulse Resp B/P Pulse Ox O2 Delivery O2 Flow Rate FiO2 07/22/16 10:00 90 22 152/65 99 Ventilator 07/22/16 08:00 98.2 98.2 07/21/16 17:25 10.0 Physical Exam Physical Exam eyes- bilateral periorbital / subconjunctival edema General: Alert, Cooperative, No acute distress Heart: Regular rate, Normal S1, Normal S2, No murmurs, Gallops Lungs: Other (decrease bs) Abdomen: Normal bowel sounds, Soft, No tenderness, No hepatosplenomegaly, No masses Extremities: No clubbing, No cyanosis, No edema, Normal pulses, No tenderness/ swelling Skin: No rashes Labs LABS Laboratory Tests Test 07/21/16 12:01 07/21/16 18:00 07/21/16 21:47 07/21/16 23:51 Glucose (Fingerstick) 388mg/dL (70-99) 293mg/dL (70-99) 301mg/dL (70-99) 241mg/dL (70-99) Test 07/22/16 05:19 07/22/16 05:20 07/22/16 09:02 Glucose (Fingerstick) 329mg/dL (70-99) White Blood Count 13.3x10^3/uL (4.0-11.0) Red Blood Count 3.01x10^6/uL (4.30-5.70) Hemoglobin 8.5g/dL (13.0-17.5) Hematocrit 26.2% (39.0-53.0) Mean Corpuscular Volume 87fL (79-100) Mean Corpuscular Hemoglobin 28pg (25-35) Mean Corpuscular Hemoglobin Concent 33g/dL (31-37) Red Cell Distribution Width 14.9% (11.5-14.5) Platelet Count 165x10^3/uL (140-400) Prothrombin Time 16.0SEC (11.7-14.0) Prothromb Time International Ratio 1.4 (0.8-1.1) Heparin Anti-Xa Act, Unfractionated 0.43IU/mL (0.30-0.70) Sodium Level 145mmol/L (136-145) Potassium Level 3.5mmol/L (3.5-5.1) Chloride Level 110mmol/L (98-107) Carbon Dioxide Level 25mmol/L (21-32) Anion Gap 10 (6-14) Blood Urea Nitrogen 65mg/dL (8-26) Creatinine 1.2mg/dL (0.7-1.3) Estimated GFR (Cockcroft-Gault) 71.8 Glucose Level 357mg/dL (70-99) Calcium Level 8.1mg/dL (8.5-10.1) O2 Saturation 97% (92-99) Arterial Blood pH 7.38 (7.35-7.45) Arterial Blood pCO2 at Patient Temp 45mmHg (35-46) Arterial Blood pO2 at Patient Temp 100mmHg (65-108) Arterial Blood HCO3 26mmol/L (21-28) Arterial Blood Base Excess 1mmol/L (-3-3) FiO2 40 Review of Systems Review of Systems afebrile + bilateral periorbital / subconjunctival edema more alert, off sedation. moving upper extremities Assessment and Plan Assessmemt and Plan Problems Medical Problems: (1) COPD exacerbation Status: Acute (2) Hyperglycemia Status: Acute ASSESSMENT: - angioedema likely 2/2 ACEI; self extubated 07/14/16 - resolved - s/p CP arrest (PEA) sec to Multiple bilateral PE (07/15) - Non-occlusive thrombus, R leg (07/15) - COPD exacerbation - Low TSH levels in a critically ill patient - DM2; insulin requiring - Oliguric Hyperkalemic renal failure - Metabolic acidosis s/p arrest - Dyslipidemia on statin - Hypotensive shock, resolved and off pressors - Acute respiratory failure - intubated again (07/15) secondary to code blue ( PEA # 2) PLAN: - LTAC eval pending - not ready for extubation per Pulm; will hope to extubate in AM - cont high dose SSI and Levemir for BG 300+ - cont Colace 100 mg BID - cont dobhoff tube feeds - cont weaning trial - appreciate palliative care on the case - patient remains critically ill; Full code for now - appreciate all subspecialists on the case - cont PRN IVF - repeat daily labs - cont steroids; cont Atrovent per pulm Problems: Comment Review of Relevant I have reviewed the following items valerie (where applicable) has been applied. Labs Laboratory Tests Test 07/20/16 11:37 07/20/16 17:05 07/20/16 17:31 07/20/16 23:00 Glucose (Fingerstick) 326mg/dL (70-99) 380mg/dL (70-99) Hemoglobin 8.8g/dL (13.0-17.5) Heparin Anti-Xa Act, Unfractionated 0.53IU/mL (0.30-0.70) 0.48IU/mL (0.30-0.70) Test 07/20/16 23:47 07/21/16 05:15 07/21/16 05:20 07/21/16 08:30 Glucose (Fingerstick) 341mg/dL (70-99) 356mg/dL (70-99) White Blood Count 12.4x10^3/uL (4.0-11.0) Red Blood Count 2.99x10^6/uL (4.30-5.70) Hemoglobin 8.6g/dL (13.0-17.5) Hematocrit 26.6% (39.0-53.0) Mean Corpuscular Volume 89fL (79-100) Mean Corpuscular Hemoglobin 29pg (25-35) Mean Corpuscular Hemoglobin Concent 32g/dL (31-37) Red Cell Distribution Width 14.7% (11.5-14.5) Platelet Count 160x10^3/uL (140-400) Prothrombin Time 15.7SEC (11.7-14.0) Prothromb Time International Ratio 1.3 (0.8-1.1) Heparin Anti-Xa Act, Unfractionated 0.47IU/mL (0.30-0.70) Sodium Level 142mmol/L (136-145) Potassium Level 3.5mmol/L (3.5-5.1) Chloride Level 108mmol/L (98-107) Carbon Dioxide Level 21mmol/L (21-32) Anion Gap 13 (6-14) Blood Urea Nitrogen 88mg/dL (8-26) Creatinine 1.7mg/dL (0.7-1.3) Estimated GFR (Cockcroft-Gault) 48.0 Glucose Level 394mg/dL (70-99) Calcium Level 8.0mg/dL (8.5-10.1) Phosphorus Level 4.4mg/dL (2.6-4.7) Albumin 1.9g/dL (3.4-5.0) O2 Saturation 98% (92-99) Arterial Blood pH 7.38 (7.35-7.45) Arterial Blood pCO2 at Patient Temp 36mmHg (35-46) Arterial Blood pO2 at Patient Temp 115mmHg (65-108) Arterial Blood HCO3 21mmol/L (21-28) Arterial Blood Base Excess -4mmol/L (-3-3) FiO2 40 Test 07/21/16 12:01 07/21/16 18:00 07/21/16 21:47 07/21/16 23:51 Glucose (Fingerstick) 388mg/dL (70-99) 293mg/dL (70-99) 301mg/dL (70-99) 241mg/dL (70-99) Test 07/22/16 05:19 07/22/16 05:20 07/22/16 09:02 Glucose (Fingerstick) 329mg/dL (70-99) White Blood Count 13.3x10^3/uL (4.0-11.0) Red Blood Count 3.01x10^6/uL (4.30-5.70) Hemoglobin 8.5g/dL (13.0-17.5) Hematocrit 26.2% (39.0-53.0) Mean Corpuscular Volume 87fL (79-100) Mean Corpuscular Hemoglobin 28pg (25-35) Mean Corpuscular Hemoglobin Concent 33g/dL (31-37) Red Cell Distribution Width 14.9% (11.5-14.5) Platelet Count 165x10^3/uL (140-400) Prothrombin Time 16.0SEC (11.7-14.0) Prothromb Time International Ratio 1.4 (0.8-1.1) Heparin Anti-Xa Act, Unfractionated 0.43IU/mL (0.30-0.70) Sodium Level 145mmol/L (136-145) Potassium Level 3.5mmol/L (3.5-5.1) Chloride Level 110mmol/L (98-107) Carbon Dioxide Level 25mmol/L (21-32) Anion Gap 10 (6-14) Blood Urea Nitrogen 65mg/dL (8-26) Creatinine 1.2mg/dL (0.7-1.3) Estimated GFR (Cockcroft-Gault) 71.8 Glucose Level 357mg/dL (70-99) Calcium Level 8.1mg/dL (8.5-10.1) O2 Saturation 97% (92-99) Arterial Blood pH 7.38 (7.35-7.45) Arterial Blood pCO2 at Patient Temp 45mmHg (35-46) Arterial Blood pO2 at Patient Temp 100mmHg (65-108) Arterial Blood HCO3 26mmol/L (21-28) Arterial Blood Base Excess 1mmol/L (-3-3) FiO2 40 Laboratory Tests Test 07/21/16 12:01 07/21/16 18:00 07/21/16 21:47 07/21/16 23:51 Glucose (Fingerstick) 388mg/dL (70-99) 293mg/dL (70-99) 301mg/dL (70-99) 241mg/dL (70-99) Test 07/22/16 05:19 07/22/16 05:20 07/22/16 09:02 Glucose (Fingerstick) 329mg/dL (70-99) White Blood Count 13.3x10^3/uL (4.0-11.0) Red Blood Count 3.01x10^6/uL (4.30-5.70) Hemoglobin 8.5g/dL (13.0-17.5) Hematocrit 26.2% (39.0-53.0) Mean Corpuscular Volume 87fL (79-100) Mean Corpuscular Hemoglobin 28pg (25-35) Mean Corpuscular Hemoglobin Concent 33g/dL (31-37) Red Cell Distribution Width 14.9% (11.5-14.5) Platelet Count 165x10^3/uL (140-400) Prothrombin Time 16.0SEC (11.7-14.0) Prothromb Time International Ratio 1.4 (0.8-1.1) Heparin Anti-Xa Act, Unfractionated 0.43IU/mL (0.30-0.70) Sodium Level 145mmol/L (136-145) Potassium Level 3.5mmol/L (3.5-5.1) Chloride Level 110mmol/L (98-107) Carbon Dioxide Level 25mmol/L (21-32) Anion Gap 10 (6-14) Blood Urea Nitrogen 65mg/dL (8-26) Creatinine 1.2mg/dL (0.7-1.3) Estimated GFR (Cockcroft-Gault) 71.8 Glucose Level 357mg/dL (70-99) Calcium Level 8.1mg/dL (8.5-10.1) O2 Saturation 97% (92-99) Arterial Blood pH 7.38 (7.35-7.45) Arterial Blood pCO2 at Patient Temp 45mmHg (35-46) Arterial Blood pO2 at Patient Temp 100mmHg (65-108) Arterial Blood HCO3 26mmol/L (21-28) Arterial Blood Base Excess 1mmol/L (-3-3) FiO2 40 Microbiology 07/15/16 Blood Culture - Final, Complete NO GROWTH AFTER 5 DAYS 07/14/16 Urine Culture - Final, Complete 07/14/16 Urine Culture Result 1 (MARÍA) - Final, Complete 07/14/16 Urine Culture Result 2 (MARÍA) - Final, Complete 07/14/16 Antimicrobic Susceptibility - Final, Complete Medications Current Medications Albuterol/ Ipratropium (Duoneb) 6 ml 1X ONCE NEB Last administered on t 12:34; Start 07/12/16 at 12:30; Stop 07/12/16 at 12:31; Status DC Prednisone 60 mg 60 mg 1X ONCE PO Last administered on 07/12/16 12:40; Start 07/12/16 at 12:30; Stop 07/12/16 at 12:31; Status DC Sodium Chloride (Iv Sodium Chloride 0.9% 1000ml Bag) 1,000 ml @ 1,000 mls/hr 1X ONCE IV Last administered on 07/12/16 13:12; Start 07/12/16 at 13:15; Stop 07/12/16 at 14:14; Status DC Insulin Human Regular (Novolin R Vial) 10 unit 1X ONCE IV Last administered on 07/12/16 13:16; Start 07/12/16 at 13:15; Stop 07/12/16 at 13:16; Status DC Diphenhydramine HCl (Benadryl) 50 mg STK-MED ONCE .ROUTE ; Start 07/12/16 at 14: 55; Stop 07/12/16 at 14:56; Status DC Diphenhydramine HCl (Benadryl) 50 mg 1X ONCE IVP Last administered on 15:15; Start 07/12/16 at 15:15; Stop 07/12/16 at 15:16; Status DC Atorvastatin Calcium (Lipitor) 40 mg HS PO Last administered on 07/21/16 21:48 ; Start 07/12/16 at 21:00 Diltiazem HCl (Cardizem 24hr Cd) 240 mg DAILY PO ; Start 07/12/16 at 16:30; Stop 07/13/16 at 17:18; Status DC Insulin Aspart (Novolog) 10 units TIDAC SQ ; Start 07/12/16 at 16:30; Stop 07/12 at 16:30; Status DC Insulin Detemir (Levemir) 20 units QHS SQ ; Start 07/12/16 at 21:00; Stop at 21:00; Status DC Promethazine HCl/ Codeine (Phenergan With Codeine) 5 ml QID PO ; Start 07/12/16 at 17:00; Stop 07/13/16 at 17:18; Status DC Non-Formulary Medication 2 puff BID IH ; Start 07/12/16 at 21:00; Status UNV Non-Formulary Medication 2.5 gm DAILY IH ; Start 07/13/16 at 09:00; Status UNV Budesonide (Pulmicort) 0.5 mg RTBID NEB Last administered on 07/13/16 07:30; Start 07/12/16 at 20:00; Stop 07/13/16 at 11:27; Status DC Albuterol/ Ipratropium (Duoneb) 3 ml RTQID NEB Last administered on 07/16/16 07:47; Start 07/12/16 at 20:00; Stop 07/16/16 at 08:38; Status DC Methylprednisolone Sodium Succinate (Solu-Medrol 40mg Vial) 60 mg 1X ONCE IV Last administered on 07/12/16 16:06; Start 07/12/16 at 16:30; Stop 07/12/16 at 16:31; Status DC Methylprednisolone Sodium Succinate (Solu-Medrol 40mg Vial) 60 mg DAILY IV ; Start 07/13/16 at 09:00; Stop 07/13/16 at 09:00; Status DC Pantoprazole Sodium (Protonix Vial) 40 mg DAILY IVP Last administered on 08:43; Start 07/13/16 at 09:00; Stop 07/17/16 at 20:37; Status DC Diphenhydramine HCl 25 mg 25 mg PRN Q6HRS PRN IVP ANAPHYLAXIS Last administered on 07/12/16 16:06; Start 07/12/16 at 16:00 Sodium Chloride (Iv Sodium Chloride 0.9% 1000ml Bag) 1,000 ml @ 150 mls/hr Q6H40M IV Last administered on 07/14/16 01:21; Start 07/12/16 at 16:30; Stop 07/14/16 at 09:31; Status DC Albuterol/ Ipratropium (Duoneb) 3 ml QID NEB ; Start 07/12/16 at 17:00; Status UNV Albuterol Sulfate (Ventolin Neb Soln) 2.5 mg PRN Q2HR PRN NEB SHORTNESS OF BREATH Last administered on 07/19/16 11:20; Start 07/12/16 at 16:00 Insulin Aspart (Novolog) 0-9 UNITS QID SQ Last administered on 07/14/16 08:37 ; Start 07/12/16 at 17:00; Stop 07/14/16 at 09:31; Status DC Dextrose 12.5 gm PRN Q15MIN PRN IV SEE COMMENTS; Start 07/12/16 at 16:00; Stop 07/15/16 at 12:46; Status DC Insulin Detemir (Levemir) 15 units QHS SQ ; Start 07/12/16 at 21:00; Stop at 21:00; Status DC Enoxaparin Sodium (Lovenox 40mg Syringe) 40 mg DAILY SQ Last administered on 08:54; Start 07/12/16 at 16:30; Stop 07/15/16 at 14:28; Status DC Insulin Detemir (Levemir) 20 units QHS SQ Last administered on 07/12/16 23:49 ; Start 07/12/16 at 21:00; Stop 07/13/16 at 15:18; Status DC Succinylcholine Chloride 200 mg 200 mg STK-MED ONCE .ROUTE ; Start 07/12/16 at 17:46; Stop 07/12/16 at 17:47; Status DC Propofol (Diprivan) 100 ml @ As Directed STK-MED ONCE IV ; Start 07/12/16 at 17 :46; Stop 07/12/16 at 17:47; Status DC Lidocaine HCl 100 mg STK-MED ONCE .ROUTE ; Start 07/12/16 at 18:02; Stop at 18:03; Status DC Ketamine HCl 500 mg 1X ONCE IV ; Start 07/12/16 at 18:30; Stop 07/12/16 at 18: 31; Status DC Midazolam HCl (Versed) 5 mg STK-MED ONCE .ROUTE ; Start 07/12/16 at 18:14; Stop 07/12/16 at 18:15; Status DC Midazolam HCl (Versed) 2 mg 1X ONCE IV ; Start 07/12/16 at 18:30; Stop at 18:31; Status DC Glycopyrrolate (Robinul) 1 mg 1X ONCE IV ; Start 07/12/16 at 18:30; Stop at 18:31; Status DC Oxymetazoline HCl (Afrin) 2 spray 1X ONCE NS ; Start 07/12/16 at 18:30; Stop at 18:31; Status DC Lidocaine HCl 30 ml STK-MED ONCE .ROUTE ; Start 07/12/16 at 18:19; Stop at 18:20; Status DC Vecuronium [place] 6 mg 6 mg PRN Q4HRS PRN IV ANXIETY / AGITATION Last administered on 07/12/16 19:55; Start 07/12/16 at 19:00; Stop 07/15/16 at 07:58 ; Status DC Propofol (Diprivan) 100 ml @ 0 mls/hr CONT PRN IV SEE I/O RECORD Last administered on 07/14/16 13:42; Start 07/12/16 at 19:00; Stop 07/15/16 at 07:58 ; Status DC Insulin Aspart 10 units 10 units 1X ONCE SQ Last administered on 07/12/16 19: 41; Start 07/12/16 at 19:45; Stop 07/12/16 at 19:46; Status DC Vecuronium [place] 100 mg/ Dextrose 100 ml @ 0 mls/hr CONT PRN IV SEE I/O RECORD Last administered on 07/13/16 20:48; Start 07/12/16 at 21:00; Stop 07/14 at 09:31; Status DC Fentanyl Citrate (Fentanyl 600 Mcg/30 ml [employer]) 30 ml @ 0 mls/hr CONT PRN IV PROTOCOL Last administered on 07/14/16 09:33; Start 07/12/16 at 22:00; Stop at 07:58; Status DC Chlorhexidine Gluconate (Peridex) 15 ml BID MM Last administered on 07/22/16 08:39; Start 07/13/16 at 09:00 Methylprednisolone Sodium Succinate (Solu-Medrol 125mg Vial) 125 mg BID IV Last administered on 07/14/16 21:02; Start 07/13/16 at 09:00; Stop 07/15/16 at 07:58; Status DC Rocuronium [place] (Zemuron) 50 mg STK-MED ONCE .ROUTE ; Start 07/12/16 at 15:00 ; Stop 07/13/16 at 08:54; Status DC Glycopyrrolate (Robinul) 1 mg STK-MED ONCE .ROUTE ; Start 07/12/16 at 15:00; Stop 07/13/16 at 08:54; Status DC Lidocaine HCl 30 ml STK-MED ONCE .ROUTE ; Start 07/12/16 at 18:00; Stop at 09:05; Status DC Midazolam HCl (Versed) 5 mg STK-MED ONCE .ROUTE ; Start 07/12/16 at 18:00; Stop 07/13/16 at 09:05; Status DC Propofol (Diprivan) 1,000 mg STK-MED ONCE IV ; Start 07/12/16 at 18:00; Stop at 09:05; Status DC Succinylcholine Chloride (Anectine) 200 mg STK-MED ONCE .ROUTE ; Start 07/12/16 at 18:00; Stop 07/13/16 at 09:05; Status DC Multi-Ingred Cream/Lotion/Oil/ Oint (Artificial Tears Eye Oint) 1 margie PRN Q1HR PRN OU DRY EYE Last administered on 07/13/16t 15:45; Start 07/13/16 at 11:00 Ketamine HCl 500 mg STK-MED ONCE .ROUTE ; Start 07/12/16 at 18:30; Stop at 12:05; Status DC Insulin Aspart (Novolog) 10 units 1X STAT SQ Last administered on 07/13/16 12 :36; Start 07/13/16 at 12:17; Stop 07/13/16 at 12:20; Status DC Insulin Aspart (Novolog) 10 units 1X ONCE SQ Last administered on 07/13/16 14 :31; Start 07/13/16 at 14:30; Stop 07/13/16 at 14:31; Status DC Insulin Detemir (Levemir) 40 units QHS SQ Last administered on 07/13/16 20:50 ; Start 07/13/16 at 21:00; Stop 07/14/16 at 09:31; Status DC Benzocaine (Hurricaine One) 1 spray STK-MED ONCE .ROUTE ; Start 07/12/16 at 12: 00; Stop 07/13/16 at 16:00; Status DC Lidocaine HCl 5 margie 5 margie STK-MED ONCE TP ; Start 07/12/16 at 12:00; Stop at 16:00; Status DC Insulin Human Regular/Sodium Chloride (Novolin R Vial/ Iv Normal Saline 150ml) 151.5 ml @ 0 mls/hr CONT PRN IV SEE I/O RECORD Last administered on 07/14/16 10:01; Start 07/14/16 at 09:30; Stop 07/15/16 at 07:58; Status DC Info 1 each 1 each PRN DAILY PRN MC SEE COMMENTS Last administered on 08:27; Start 07/14/16 at 09:30; Stop 07/19/16 at 16:30; Status DC Magnesium Sulfate/ Dextrose 50 ml @ 25 mls/hr PRN DAILY PRN IV for Mag < 1.7 on am labs; Start 07/14/16 at 11:15; Stop 07/15/16 at 07:58; Status DC Sodium Chloride 500 ml @ 500 mls/hr QID PRN IV UO< 30cc/hr over previous 6hrs ; Start 07/14/16 at 11:15; Stop 07/14/16 at 11:26; Status DC Sodium Chloride 500 ml @ 500 mls/hr PRN QID PRN IV UO< 30cc/hr over previous 6hrs Last administered on 07/16/16 10:00; Start 07/14/16 at 11:26 Ceftriaxone Sodium 1 gm/ Sodium Chloride 50 ml @ 100 mls/hr Q24H IV Last administered on 07/19/16 12:25; Start 07/14/16 at 12:00; Stop 07/20/16 at 12:29 ; Status DC Sodium Chloride/ Magnesium Sulfate/ Calcium Gluconate/ Multivitamins/ Chromium/ Copper/ Manganese/Seleni/ Zn/Total Parenteral Nutrition/Amino Acids/Dextrose ( Sodium Chloride/ Infuvite Adult/ Multitrace-5 Conc/ Tpn - Tpn Fluid/ Trophamine / Dextrose 70%-Water Iv Soln) 1,512 ml @ 63 mls/hr TPN CONT IV Last administered on 07/14/16 22:29; Start 07/14/16 at 22:00; Stop 07/15/16 at 21:59 ; Status DC Hydralazine HCl (Apresoline) 10 mg PRN Q4HRS PRN IVP ELEVATED BP, SEE COMMENTS Last administered on 07/22/16 08:39; Start 07/14/16 at 22:30 Methylprednisolone Sodium Succinate (Solu-Medrol 125mg Vial) 125 mg DAILY IV Last administered on 07/15/16 08:55; Start 07/15/16 at 09:00; Stop 07/16/16 at 08:35; Status DC Insulin Aspart (Novolog) 0-9 UNITS TIDWMEALS SQ Last administered on 07/15/16 16:16; Start 07/15/16 at 08:00; Stop 07/16/16 at 07:16; Status DC Dextrose 12.5 gm PRN Q15MIN PRN IV SEE COMMENTS; Start 07/15/16 at 08:00; Stop 07/19/16 at 10:53; Status DC Insulin Detemir (Levemir) 20 units QHS SQ Last administered on 07/15/16 21:48 ; Start 07/15/16 at 21:00; Stop 07/16/16 at 07:16; Status DC Insulin Aspart (Novolog) 10 units TIDAC SQ ; Start 07/15/16 at 11:30; Stop 07/16 at 07:16; Status DC Sodium Polystyrene Sulfonate (Kayexalate) 30 gm 1X ONCE PO ; Start 07/15/16 at 08:00; Stop 07/15/16 at 08:08; Status DC Hydrochlorothiazide (Microzide) 12.5 mg DAILY PO ; Start 07/15/16 at 09:00; Stop 07/16/16 at 07:39; Status DC Isosorbide Mononitrate (Imdur) 120 mg DAILY PO ; Start 07/15/16 at 09:00; Stop 07/15/16 at 09:00; Status DC Diltiazem HCl (Cardizem 24hr Cd) 240 mg DAILY PO ; Start 07/15/16 at 09:00; Stop 07/16/16 at 07:39; Status DC Guaifenesin (Mucinex) 600 mg BID PO ; Start 07/15/16 at 09:00; Stop 07/16/16 at 07:39; Status DC Mupirocin (Bactroban) 1 margie BID NS Last administered on 07/22/16 09:00; Start 07/15/16 at 09:00 Isosorbide Mononitrate (Imdur) 120 mg DAILY PO ; Start 07/15/16 at 09:00; Stop 07/16/16 at 07:39; Status DC Sodium Bicarbonate 50 meq 1X ONCE IV Last administered on 07/15/16 15:22; Start 07/15/16 at 10:45; Stop 07/15/16 at 10:46; Status DC Sodium Bicarbonate 50 meq 50 meq STK-MED ONCE .ROUTE ; Start 07/15/16 at 10:34; Stop 07/15/16 at 10:35; Status DC Dopamine HCl/ Dextrose 250 ml @ As Directed STK-MED ONCE IV ; Start 07/15/16 at 10:37; Stop 07/15/16 at 10:38; Status DC Midazolam HCl (Versed) 5 mg STK-MED ONCE .ROUTE ; Start 07/15/16 at 10:41; Stop 07/15/16 at 10:42; Status DC Iohexol 100 ml 100 ml STK-MED ONCE .ROUTE ; Start 07/15/16 at 10:45; Stop at 10:46; Status DC Heparin Sodium/ Sodium Chloride 1,500 ml @ As Directed STK-MED ONCE .ROUTE ; Start 07/15/16 at 10:45; Stop 07/15/16 at 10:46; Status DC Lidocaine HCl 20 ml 20 ml STK-MED ONCE .ROUTE ; Start 07/15/16 at 10:45; Stop at 10:46; Status DC Dopamine HCl/ Dextrose 250 ml @ 16.255 mls/ hr CONT PRN IV SEE I/O RECORD Last administered on 07/16/16 23:10; Start 07/15/16 at 11:00 Sodium Chloride 1,000 ml @ 1,000 mls/hr 1X ONCE IV Last administered on 11:00; Start 07/15/16 at 11:00; Stop 07/15/16 at 11:59; Status DC Norepinephrine Bitartrate/Sodium Chloride (Levophed Vial/ Iv Sodium Chloride 0.9 % 250ml) 258 ml @ 0 mls/hr CONT PRN IV SEE I/O RECORD Last administered on 07/17 00:51; Start 07/15/16 at 11:00 Midazolam HCl (Versed) 5 mg STK-MED ONCE .ROUTE ; Start 07/15/16 at 10:54; Stop 07/15/16 at 10:55; Status DC Fentanyl Citrate (Fentanyl 2ml Vial) 100 mcg STK-MED ONCE .ROUTE ; Start at 11:02; Stop 07/15/16 at 11:03; Status DC Vecuronium [place] 10 mg 10 mg STK-MED ONCE IV ; Start 07/15/16 at 11:03; Stop 07/15/16 at 11:04; Status DC Midazolam HCl (Versed 100mg/ 100ml Premix) 100 ml @ As Directed STK-MED ONCE IV ; Start 07/15/16 at 11:03; Stop 07/15/16 at 11:04; Status DC Iohexol (Omnipaque 300 Mg/ml) 112 ml 1X ONCE IART Last administered on 11:56; Start 07/15/16 at 12:00; Stop 07/15/16 at 12:01; Status DC Lidocaine HCl 10 ml 1X ONCE IJ Last administered on 07/15/16 11:57; Start at 12:00; Stop 07/15/16 at 12:01; Status DC Heparin Sodium/ Sodium Chloride 1000 unit 1,000 unit 1X ONCE IART ; Start 07/15 at 12:00; Stop 07/15/16 at 12:01; Status DC Sodium Chloride/ Magnesium Sulfate/ Calcium Gluconate/ Multivitamins/ Chromium/ Copper/ Manganese/Seleni/ Zn/Total Parenteral Nutrition/Amino Acids/Dextrose ( Sodium Chloride/ Infuvite Adult/ Multitrace-5 Conc/ Tpn - Tpn Fluid/ Trophamine / Dextrose 70%-Water Iv Soln) 1,512 ml @ 63 mls/hr TPN CONT IV Last administered on 07/15/16 21:27; Start 07/15/16 at 22:00; Stop 07/16/16 at 21:59 ; Status DC Iohexol (Omnipaque 300 Mg/ml) 75 ml 1X ONCE IV Last administered on 07/15/16 13:43; Start 07/15/16 at 13:15; Stop 07/15/16 at 13:16; Status DC Info (Do NOT chart on this entry -- for MONITORING) 1 each PRN DAILY PRN MC SEE COMMENTS; Start 07/15/16 at 13:15; Stop 07/17/16 at 13:14; Status DC Heparin Sodium (Porcine) 7000 unit 7,000 unit 1X ONCE IV Last administered on 07/15/16 15:27; Start 07/15/16 at 14:45; Stop 07/15/16 at 14:46; Status DC Heparin Sodium/ Dextrose 500 ml @ 0 mls/hr CONT PRN IV SEE I/O RECORD Last administered on 07/17/16 18:41; Start 07/15/16 at 14:30; Stop 07/18/16 at 10:21 ; Status DC Heparin Sodium (Porcine) 2,600 unit PRN Q6HRS PRN IV FOR UFH LEVEL LESS THAN 0.2; Start 07/15/16 at 14:30; Stop 07/18/16 at 10:21; Status DC Heparin Sodium (Porcine) 1,300 unit PRN Q6HRS PRN IV FOR UFH LEVEL 0.2 - 0.29; Start 07/15/16 at 14:30; Stop 07/18/16 at 10:21; Status DC Warfarin Sodium (Coumadin Per Pharmacy) 1 each PRN DAILY PRN MC PER PROTOCOL; Start 07/15/16 at 14:30; Stop 07/15/16 at 14:30; Status DC Sodium Bicarbonate 50 meq 50 meq 1X ONCE IV Last administered on 07/15/16 16: 30; Start 07/15/16 at 16:30; Stop 07/15/16 at 16:34; Status DC Alteplase, Recombinant (Activase) 100 ml @ 50 mls/hr 1X ONCE IV Last administered on 07/15/16 17:30; Start 07/15/16 at 17:30; Stop 07/15/16 at 19:29 ; Status DC Fentanyl Citrate (Fentanyl 2ml Vial) 25 mcg PRN Q1HR PRN IV COMM; Start at 22:30; Stop 07/16/16 at 07:17; Status DC Fentanyl Citrate (Fentanyl 2ml Vial) 50 mcg PRN Q1HR PRN IV COMM Last administered on 07/16/16 05:30; Start 07/15/16 at 22:30; Stop 07/16/16 at 07:17 ; Status DC Scopolamine (Transderm-Scop) 1 patch Q3DAYS TD Last administered on 07/21/16 08:30; Start 07/18/16 at 09:00 Scopolamine 1 patch 1 patch ONCE ONCE TD ; Start 07/15/16 at 23:30; Stop at 23:31; Status DC Sodium Chloride 1,000 ml @ 1,000 mls/hr 1X ONCE IV Last administered on 02:38; Start 07/16/16 at 01:00; Stop 07/16/16 at 01:59; Status DC Midazolam HCl 100 ml @ As Directed STK-MED ONCE IV ; Start 07/16/16 at 01:00; Stop 07/16/16 at 01:01; Status DC Midazolam HCl 100 ml @ 0 mls/hr CONT PRN IV SEE I/O RECORD Last administered on 07/19/16 07:52; Start 07/16/16 at 01:15 Vasopressin 40 unit/Dextrose 102 ml @ 6 mls/hr CONT PRN IV SEE I/O RECORD Last administered on 07/17/16 13:33; Start 07/16/16 at 05:00 Insulin Human Regular 150 unit/ Sodium Chloride 151.5 ml @ 0 mls/hr CONT PRN IV SEE I/O RECORD Last administered on 07/17/16 02:26; Start 07/16/16 at 05:00 ; Stop 07/17/16 at 10:10; Status DC Fentanyl Citrate (Fentanyl 600 Mcg/30 ml [employer]) 30 ml @ 0 mls/hr CONT PRN IV PROTOCOL Last administered on 07/19/16 06:15; Start 07/16/16 at 07:15 Vecuronium [place] (Norcuron Bolus) 10 mg STK-MED ONCE IV ; Start 07/15/16 at 11 :00; Stop 07/16/16 at 08:06; Status DC Fentanyl Citrate (Fentanyl 2ml Vial) 100 mcg STK-MED ONCE .ROUTE ; Start at 11:00; Stop 07/16/16 at 08:06; Status DC Midazolam HCl (Versed) 10 mg STK-MED ONCE .ROUTE ; Start 07/15/16 at 11:00; Stop 07/16/16 at 08:06; Status DC Dopamine HCl/ Dextrose 400 mg STK-MED ONCE IV ; Start 07/15/16 at 11:00; Stop at 08:06; Status DC Sodium Bicarbonate 50 meq STK-MED ONCE .ROUTE ; Start 07/15/16 at 11:00; Stop at 08:06; Status DC Hydrocortisone Sodium Succinate (Solu-Cortef) 100 mg Q8HRS IV Last administered on 07/19/16 05:50; Start 07/16/16 at 09:00; Stop 07/19/16 at 09:30 ; Status DC Sodium Polystyrene Sulfonate 30 gm 30 gm 1X ONCE PO Last administered on 08:41; Start 07/16/16 at 08:30; Stop 07/16/16 at 08:34; Status DC Albumin Human (Plasmanate) 500 ml @ 125 mls/hr PRN Q6HRS PRN IV for CVP < 10; MAP < 65 Last administered on 07/17/16 08:12; Start 07/16/16 at 08:30 Sodium Bicarbonate 50 meq 1X ONCE IV Last administered on 07/16/16 08:41; Start 07/16/16 at 08:45; Stop 07/16/16 at 08:46; Status DC Info (Anti-Coagulation Monitoring By Pharmacy) 1 each PRN DAILY PRN MC SEE COMMENTS; Start 07/16/16 at 08:45; Status Cancel Ipratropium [place] (Atrovent) 0.5 mg RTQID NEB Last administered on 07/22/16 07:46; Start 07/16/16 at 12:00 Lidocaine/Sodium Bicarbonate (Buffered Lidocaine 1%) 3 ml 1X ONCE IJ Last administered on 07/16/16 10:43; Start 07/16/16 at 09:15; Stop 07/16/16 at 09:16 ; Status DC Heparin Sodium/ Sodium Chloride 60 unit 1X ONCE IV Last administered on 10:44; Start 07/16/16 at 09:15; Stop 07/16/16 at 09:16; Status DC Heparin Sodium (Porcine) 2500 unit 2,500 unit 1X ONCE INT CAT Last administered on 07/16/16 10:44; Start 07/16/16 at 09:15; Stop 07/16/16 at 09:16 ; Status DC Sodium Chloride 40 meq/Sodium Acetate 40 meq/ Magnesium Sulfate 8 meq/Calcium Gluconate 5 meq/ Multivitamins 10 ml/Chromium/ Copper/Manganese/ Seleni/Zn 1 ml / Insulin Human Regular 10 unit/ Total Parenteral Nutrition/Amino Acids/Dextrose / Fat Emulsion Intravenous 1,512 ml @ 63 mls/hr TPN CONT IV Last administered on 07/16/16 21:53; Start 07/16/16 at 22:00; Stop 07/17/16 at 21:59 ; Status DC Pantoprazole Sodium 80 mg/ Sodium Chloride 100 ml @ 10 mls/hr Q10H IV Last administered on 07/21/16 10:10; Start 07/17/16 at 06:45; Stop 07/21/16 at 12:21 ; Status DC Sodium Acetate/ Potassium Acetate/ Magnesium Sulfate/ Calcium Gluconate/ Multivitamins/ Chromium/Copper/ Manganese/Seleni/ Zn/Insulin Human Regular/ Total Parenteral Nutrition/Amino Acids/Dextrose/ Fat Emulsion Intravenous ( Calcium Gluconate/ Infuvite Adult/ Multitrace-5 Conc/ Novolin R Vi... 1,512 ml @ 63 mls/hr TPN CONT IV Last administered on 07/17/16 21:49; Start 07/17/16 at 22:00; Stop 07/18/16 at 21:59; Status DC Insulin Detemir (Levemir) 25 units BID SQ Last administered on 07/17/16 20:51 ; Start 07/17/16 at 10:30; Stop 07/18/16 at 08:12; Status DC Insulin Aspart (Novolog) 0-9 UNITS TIDWMEALS SQ Last administered on 07/18/16 10:03; Start 07/17/16 at 12:00; Stop 07/18/16 at 11:55; Status DC Dextrose 12.5 gm PRN Q15MIN PRN IV SEE COMMENTS; Start 07/17/16 at 10:15; Status UNV Iohexol (Omnipaque 300 Mg/ml) 100 ml STK-MED ONCE .ROUTE ; Start 07/17/16 at 10: 45; Stop 07/17/16 at 10:46; Status DC Lidocaine/Sodium Bicarbonate 20 ml 20 ml STK-MED ONCE IJ ; Start 07/17/16 at 10: 45; Stop 07/17/16 at 10:46; Status DC Heparin Sodium/ Sodium Chloride 500 ml @ As Directed STK-MED ONCE .ROUTE ; Start 07/17/16 at 10:46; Stop 07/17/16 at 10:47; Status DC Heparin Sodium/ Sodium Chloride 1,000 unit 1X ONCE IART Last administered on 11:27; Start 07/17/16 at 11:15; Stop 07/17/16 at 11:26; Status DC Lidocaine/Sodium Bicarbonate (Buffered Lidocaine 1%) 3 ml 1X ONCE IJ Last administered on 07/17/16 11:15; Start 07/17/16 at 11:15; Stop 07/17/16 at 11:26 ; Status DC Iohexol (Omnipaque 300 Mg/ml) 40 ml 1X ONCE IART Last administered on 11:26; Start 07/17/16 at 11:15; Stop 07/17/16 at 11:26; Status DC Info (Do NOT chart on this entry -- for MONITORING) 1 each PRN DAILY PRN MC SEE COMMENTS; Start 07/17/16 at 11:30; Stop 07/19/16 at 11:29; Status DC Calcium Chloride 2,000 mg STK-MED ONCE IV ; Start 07/16/16 at 13:02; Stop at 13:03; Status DC Epinephrine HCl 4 mg STK-MED ONCE .ROUTE ; Start 07/16/16 at 13:02; Stop at 13:03; Status DC Furosemide 40 mg 40 mg 1X ONCE IVP Last administered on 07/17/16 16:45; Start 07/17/16 at 16:45; Stop 07/17/16 at 16:47; Status DC Propofol (Diprivan) 100 ml @ As Directed STK-MED ONCE IV ; Start 07/17/16 at 16 :36; Stop 07/17/16 at 16:37; Status DC Insulin Detemir (Levemir) 35 units BID SQ Last administered on 07/18/16 10:00 ; Start 07/18/16 at 09:00; Stop 07/18/16 at 11:55; Status DC Insulin Aspart (Novolog) 10 units Q6HRS SQ ; Start 07/18/16 at 12:00; Stop 07/18 at 12:00; Status DC Insulin Aspart 20 units 20 units 1X ONCE SQ Last administered on 07/18/16 10: 02; Start 07/18/16 at 08:15; Stop 07/18/16 at 11:56; Status DC Sodium Acetate/ Potassium Acetate/ Magnesium Sulfate/ Calcium Gluconate/ Multivitamins/ Chromium/Copper/ Manganese/Seleni/ Zn/Insulin Human Regular/ Total Parenteral Nutrition/Amino Acids/Dextrose/ Fat Emulsion Intravenous ( Calcium Gluconate/ Infuvite Adult/ Multitrace-5 Conc/ Novolin R Vi... 1,512 ml @ 63 mls/hr TPN CONT IV Last administered on 07/18/16 22:03; Start 07/18/16 at 22:00; Stop 07/19/16 at 21:59; Status DC Atropine Sulfate 0.5 mg 0.5 mg STK-MED ONCE .ROUTE ; Start 07/18/16 at 09:43; Stop 07/18/16 at 09:44; Status DC Insulin Human Regular/Sodium Chloride (Novolin R Vial/ Iv Normal Saline 150ml) 151.5 ml @ 0 mls/hr CONT PRN IV SEE I/O RECORD Last administered on 07/18/16 13:54; Start 07/18/16 at 11:45; Stop 07/19/16 at 10:27; Status DC Dextrose 12.5 gm 12.5 gm PRN Q15MIN PRN IV LOW BLOOD SUGAR; Start 07/18/16 at 11:45; Stop 07/19/16 at 10:53; Status DC Potassium Chloride (KCl Premix 20meq) 50 ml @ 25 mls/hr Q2H IV Last administered on 07/19/16 11:09; Start 07/19/16 at 09:30; Stop 07/19/16 at 13:29 ; Status DC Propofol (Diprivan) 1,000 mg STK-MED ONCE IV ; Start 07/17/16 at 16:36; Stop at 08:22; Status DC Atropine Sulfate 1 mg STK-MED ONCE .ROUTE ; Start 07/18/16 at 09:43; Stop at 08:53; Status DC Hydrocortisone Sodium Succinate (Solu-Cortef) 50 mg Q8HRS IV Last administered on 07/22/16 05:34; Start 07/19/16 at 14:00 Heparin Sodium (Porcine) 7400 unit 7,400 unit 1X ONCE IV Last administered on 07/19/16 10:03; Start 07/19/16 at 09:45; Stop 07/19/16 at 09:53; Status DC Heparin Sodium/ Dextrose 500 ml @ 0 mls/hr CONT PRN IV SEE I/O RECORD Last administered on 07/22/16 05:36; Start 07/19/16 at 09:45 Heparin Sodium (Porcine) 2,800 unit PRN Q6HRS PRN IV FOR UFH LEVEL LESS THAN 0.2; Start 07/19/16 at 09:45 Heparin Sodium (Porcine) 1,400 unit PRN Q6HRS PRN IV FOR UFH LEVEL 0.2 - 0.29 Last administered on 07/20/16 12:06; Start 07/19/16 at 09:45 Warfarin Sodium (Coumadin Per Pharmacy) 1 each PRN DAILY PRN MC PER PROTOCOL Last administered on 07/22/16 10:55; Start 07/19/16 at 09:45 Insulin Aspart (Novolog) 0-5 UNITS TIDWMEALS SQ Last administered on 07/19/16 12:02; Start 07/19/16 at 12:00; Stop 07/19/16 at 16:45; Status DC Dextrose 12.5 gm 12.5 gm PRN Q15MIN PRN IV SEE COMMENTS; Start 07/19/16 at 10: 30 Potassium Acetate/ Magnesium Sulfate/ Calcium Gluconate/ Multivitamins/ Chromium /Copper/ Manganese/Seleni/ Zn/Insulin Human Regular/Total Parenteral Nutrition/ Amino Acids/Dextrose/ Fat Emulsion Intravenous (Calcium Gluconate/ Infuvite Adult/ Multitrace-5 Conc/ Novolin R Vial/ Tpn - Tpn Flu... 1,200 ml @ 50 mls/ hr TPN CONT IV ; Start 07/19/16 at 22:00; Stop 07/19/16 at 22:00; Status DC Insulin Aspart (Novolog) 0-5 UNITS Q6HRS SQ Last administered on 07/21/16 12: 04; Start 07/19/16 at 18:00; Stop 07/21/16 at 12:34; Status DC Warfarin Sodium (Coumadin) 4 mg 1X WARF ONCE PO Last administered on 17:26; Start 07/19/16 at 17:02; Stop 07/19/16 at 17:03; Status DC Fentanyl Citrate (Fentanyl 2ml Vial) 50 mcg PRN Q2HR PRN IV PAIN Last administered on 07/22/16 03:15; Start 07/20/16 at 02:45; Stop 07/22/16 at 04:45 ; Status DC Warfarin Sodium (Coumadin) 5 mg 1X WARF ONCE PO Last administered on 17:09; Start 07/20/16 at 16:00; Stop 07/20/16 at 16:01; Status DC Midazolam HCl 1 mg 1 mg PRN Q1HR PRN IV sedation on vent; Start 07/20/16 at 11: 15; Stop 07/22/16 at 04:46; Status DC Sodium Chloride (Iv Sodium Chloride 0.9% 1000ml Bag) 1,000 ml @ 75 mls/hr [id number] IV Last administered on 07/22/16 04:32; Start 07/20/16 at 11:15 Midazolam HCl (Versed) 2 mg PRN Q1HR PRN IV sedation on vent; Start 07/20/16 at 11:15; Stop 07/22/16 at 04:47; Status DC Midazolam HCl (Versed) 3 mg PRN Q1HR PRN IV sedation on vent; Start 07/20/16 at 11:15; Stop 07/22/16 at 04:47; Status DC Midazolam HCl (Versed) 4 mg PRN Q1HR PRN IV sedation on vent Last administered on 07/22/16 04:32; Start 07/20/16 at 11:15; Stop 07/22/16 at 04:47; Status DC Insulin Detemir (Levemir) 15 units QHS SQ Last administered on 07/20/16 20:47 ; Start 07/20/16 at 21:00; Stop 07/21/16 at 12:34; Status DC Warfarin Sodium (Coumadin) 5 mg 1X WARF ONCE PO Last administered on 15:37; Start 07/21/16 at 16:00; Stop 07/21/16 at 16:01; Status DC Pantoprazole Sodium (Protonix Vial) 40 mg DAILYAC IVP Last administered on 07/22 07:41; Start 07/22/16 at 07:30 Insulin Detemir (Levemir) 25 units QHS SQ Last administered on 07/21/16 21:49 ; Start 07/21/16 at 21:00 Docusate Sodium (Colace) 100 mg BID PO Last administered on 07/21/16 21:48; Start 07/21/16 at 21:00 Insulin Aspart (Novolog) 0-9 UNITS Q6HRS SQ Last administered on 07/22/16 05: 35; Start 07/21/16 at 13:00 Fentanyl Citrate (Fentanyl 2ml Vial) 100 mcg STK-MED ONCE .ROUTE ; Start at 22:18; Stop 07/21/16 at 22:19; Status DC Midazolam HCl (Versed) 2 mg STK-MED ONCE .ROUTE ; Start 07/21/16 at 23:45; Stop 07/21/16 at 23:46; Status DC Fentanyl Citrate (Fentanyl 2ml Vial) 100 mcg STK-MED ONCE .ROUTE ; Start at 00:36; Stop 07/22/16 at 00:37; Status DC Midazolam HCl (Versed) 2 mg STK-MED ONCE .ROUTE ; Start 07/22/16 at 00:57; Stop 07/22/16 at 00:58; Status DC Midazolam HCl (Versed) 2 mg STK-MED ONCE .ROUTE ; Start 07/22/16 at 02:06; Stop 07/22/16 at 02:07; Status DC Midazolam HCl (Versed) 2 mg STK-MED ONCE .ROUTE ; Start 07/22/16 at 03:13; Stop 07/22/16 at 03:14; Status DC Fentanyl Citrate (Fentanyl 2ml Vial) 100 mcg STK-MED ONCE .ROUTE ; Start at 03:14; Stop 07/22/16 at 03:15; Status DC Midazolam HCl (Versed) 2 mg STK-MED ONCE .ROUTE ; Start 07/22/16 at 04:29; Stop 07/22/16 at 04:30; Status DC Fentanyl Citrate (Fentanyl 2ml Vial) 50 mcg PRN Q2HR PRN IV SEVERE PAIN Last administered on 07/22/16 05:13; Start 07/22/16 at 04:45 Midazolam HCl (Versed) 1 mg PRN Q1HR PRN IV sedation on vent; Start 07/22/16 at 04:46 Midazolam HCl (Versed) 2 mg PRN Q1HR PRN IV sedation on vent Last administered on 07/22/16 07:42; Start 07/22/16 at 04:47 Midazolam HCl (Versed) 3 mg PRN Q1HR PRN IV sedation on vent; Start 07/22/16 at 04:47 Midazolam HCl (Versed) 4 mg PRN Q1HR PRN IV sedation on vent Last administered on 07/22/16t 05:33; Start 07/22/16 at 04:47 Warfarin Sodium (Coumadin) 7.5 mg 1X WARF ONCE PO ; Start 07/22/16 at 16:00; Stop 07/22/16 at 16:01 Active Scripts Active Levemir Flextouch (Insulin Detemir) 100 Unit/1 Ml Insuln.pen 20 Units SQ QHS 30 Days Novolog Flexpen (Insulin Aspart) 100 Unit/1 Ml Insuln.pen 10 Units SQ TIDAC 30 Days Reported Advair 100-50 Diskus (Fluticasone/Salmeterol) 1 Each Disk.w.dev 1 Puff IH BID Spiriva Respimat (Tiotropium [place]) 4 Gm Mist.inhal 2.5 Gm IH DAILY Symbicort 160-4.5 Mcg Inhaler (Budesonide/Formoterol Fumarate) 10.2 Gm Hfa.aer.ad 2 Puff IH BID Atorvastatin Calcium 20 Mg Tablet 20 Mg PO HS Lisinopril-Hctz 10-12.5 Mg Tab (Lisinopril/Hydrochlorothiazide) 1 Each Tablet 1 Tab PO DAILY Isosorbide Mononitrate Er (Isosorbide Mononitrate) 120 Mg Tab.er.24h 120 Mg PO DAILY Novolin N (Nph, Human Insulin Isophane) 100 Unit/1 Ml Vial 0 SQ Promethazine-Codeine Syrup (Promethazine Hcl/Codeine) 118 Ml Syrup 5 Ml PO Q4- 6HRS Diltiazem 24HR Cd (Diltiazem Hcl) 240 Mg Cap.er.24h 240 Mg PO DAILY NITROGLYCERIN SubLingual (Nitroglycerin) 0.4 Mg Tab.subl 0.4 Mg SL PRN Q5MIN PRN Atorvastatin Calcium 40 Mg Tablet 40 Mg PO HS Vitals/I & O Vital Sign - Last 24 Hours 07/21/16 07/21/16 07/21/16 07/21/16 11:19 11:50 12:00 12:00 Temp 97.9 97.9 Pulse 56 Resp 27 23 B/P 170/75 Pulse Ox 99 100 O2 Delivery Ventilator Mechanical Ventilator Ventilator O2 Flow Rate 3.0 07/21/16 07/21/16 07/21/1607/21/17 12:16 12:30 12:40 13:00 Pulse 62 77 Resp 24 B/P 170/75 133/53 Pulse Ox 100 100 O2 Delivery Ventilator T-Tube Ventilator O2 Flow Rate 10.0 07/21/16 07/21/16 07/21/16 07/21/16 13:30 14:00 15:00 15:27 Pulse 82 81 Resp 25 23 24 25 B/P 154/73 163/75 Pulse Ox 99 99 100 100 O2 Delivery Ventilator Ventilator Ventilator Ventilator 07/21/16 07/21/16 07/21/16 07/21/16 16:00 16:00 17:00 17:25 Temp 98.2 98.2 Pulse 64 73 Resp 22 B/P 145/66 156/73 Pulse Ox 100 98 98 O2 Delivery Mechanical Ventilator Ventilator Ventilator O2 Flow Rate 10.0 07/21/16 07/21/16 07/21/16 07/21/16 17:55 18:00 19:00 19:43 Pulse 76 77 Resp 16 16 19 B/P 177/79 168/83 Pulse Ox 100 100 100 O2 Delivery Ventilator Ventilator Ventilator Mechanical Ventilator 07/21/16 07/21/16 07/21/16 07/21/16 20:00 20:20 21:00 22:00 Temp 97.9 97.9 Pulse 57 57 67 Resp 22 B/P 145/72 145/75 152/72 Pulse Ox 100 100 100 100 O2 Delivery Ventilator Ventilator Ventilator Ventilator 07/21/16 07/22/16 07/22/16 07/22/16 23:00 00:00 00:00 01:00 Temp 97.7 97.7 Pulse 58 62 56 Resp 22 22 B/P 142/66 142/66 150/66 Pulse Ox 100 100 100 O2 Delivery Ventilator Ventilator Mechanical Ventilator Ventilator 07/22/16 07/22/16 07/22/16 07/22/16 01:42 02:00 03:00 03:48 Pulse 55 54 Resp 22 22 B/P 156/74 143/67 Pulse Ox 100 100 100 100 O2 Delivery Ventilator Ventilator Ventilator Ventilator 07/22/16 07/22/16 07/22/16 07/22/16 03:54 04:00 05:00 05:53 Temp 97.9 97.9 Pulse 54 58 Resp 22 22 B/P 116/54 136/63 Pulse Ox 100 100 100 O2 Delivery Mechanical Ventilator Ventilator Ventilator Ventilator 07/22/16 07/22/16 07/22/16 07/22/16 06:00 07:00 07:47 08:00 Pulse 56 60 Resp 22 B/P 143/73 148/70 Pulse Ox 100 100 100 O2 Delivery Ventilator Ventilator Ventilator Mechanical Ventilator 07/22/16 07/22/16 07/22/16 07/22/16 08:00 08:39 09:00 09:08 Temp 98.2 98.2 Pulse 68 77 92 Resp 22 22 B/P 182/86 189/90 160/76 Pulse Ox 100 98 O2 Delivery Ventilator Ventilator Ventilator 07/22/16 07/22/16 09:18 10:00 Pulse 90 Resp 22 B/P 152/65 Pulse Ox 100 99 O2 Delivery Ventilator Ventilator Intake and Output 07/21/16 07/21/16 07/22/16 15:00 23:00 07:00 Intake Total 335 ml 2532 ml 2498 ml Output Total 770 ml 1061 ml 441 ml Balance -435 ml 1471 ml 2057 ml JUHI FRANCIS III DO Jul 22, 2016 11:14
--- NOTE | 2016-07-22 12:27 | RAD ---
Portable abdomen, 07/22/2016: History: Check Dobbhoff placement A supine view of the upper abdomen demonstrates a Dobbhoff tube with its tip lying in the region of the GE junction. There is a moderate amount of gas in the GI tract in a nonspecific pattern. An inferior vena cava filter is in place at the L2-3 level. There is pleural fluid and infiltrate in the right base. IMPRESSION: The tip of the Dobbhoff tube lies at the GE junction level. The tube should be advanced.
[2016-07-22] MEDS: METOPROLOL TARTRATE 5 MG/5 ML VIAL. IVP SCH ×2 (12:36→17:38)
--- NOTE | 2016-07-22 13:50 | PDOC ---
Objective: Objective: Per RN - extubated himself, also took out Dobhoff. Bronch cancelled, pulm monitoring. No GI concerns. Vital Signs: Vital Signs Date Time Temp Pulse Resp B/P Pulse Ox O2 Delivery O2 Flow Rate FiO2 07/22/16 13:00 85 24 165/81 100 Venturi Mask 07/22/16 12:00 98.0 98.0 07/21/16 17:25 10.0 Labs: Laboratory Tests Test 07/21/16 18:00 07/21/16 21:47 07/21/16 23:51 07/22/16 05:19 Glucose (Fingerstick) 293mg/dL 301mg/dL 241mg/dL 329mg/dL Test 07/22/16 05:20 07/22/16 09:02 07/22/16 11:44 White Blood Count 13.3x10^3/uL Red Blood Count 3.01x10^6/uL Hemoglobin 8.5g/dL Hematocrit 26.2% Mean Corpuscular Volume 87fL Mean Corpuscular Hemoglobin 28pg Mean Corpuscular Hemoglobin Concent 33g/dL Red Cell Distribution Width 14.9% Platelet Count 165x10^3/uL Prothrombin Time 16.0SEC Prothromb Time International Ratio 1.4 Heparin Anti-Xa Act, Unfractionated 0.43IU/mL Sodium Level 145mmol/L Potassium Level 3.5mmol/L Chloride Level 110mmol/L Carbon Dioxide Level 25mmol/L Anion Gap 10 Blood Urea Nitrogen 65mg/dL Creatinine 1.2mg/dL Estimated GFR (Cockcroft-Gault) 71.8 Glucose Level 357mg/dL Calcium Level 8.1mg/dL O2 Saturation 97% Arterial Blood pH 7.38 Arterial Blood pCO2 at Patient Temp 45mmHg Arterial Blood pO2 at Patient Temp 100mmHg Arterial Blood HCO3 26mmol/L Arterial Blood Base Excess 1mmol/L FiO2 40 Glucose (Fingerstick) 315mg/dL PE: GEN: NAD LUNGS: decreased anteriorly, breathing mask HEART: S1S2 ABD: NABS, S/ND/NT NEURO/PSYCH: awake A/P: Acute resp failure, s/p arrest, s/p cardiac cath, PE and DVT s/p TPA -self-extubated and removed Dobhoff this morning Anemia -Hgb stable, has had intermittent transfusions, no GI bleeding -on PPI drip, also Heparin -- Continue same per GI. SANDOR SARMIENTO Jul 22, 2016 13:50
[2016-07-22] MEDS ORDERED: WARFARIN 7.5 MG TABLET. PO ONE (16:00)
--- NOTE | 2016-07-22 18:25 | RAD ---
PROCEDURE Abdomen radiograph. HISTORY Dobbhoff tube tip placement. COMPARISON Earlier July 22, 2016. FINDINGS AP supine portable abdomen radiograph. IVC filter is present. Bowel gas pattern is nonspecific. Dobbhoff tube has been advanced with tip coiled at the proximal body of stomach. IMPRESSION Dobbhoff tube has been advanced with tip coiled in the proximal body of the stomach. Electronically signed by: Serafin Blakely MD (Jul 22, 2016 18:24:27)
[2016-07-22] MEDS ORDERED: ATORVASTATIN CALCIUM 40 MG TABLET. ONE (20:37)
[2016-07-22] MEDS: ATORVASTATIN CALCIUM 40 MG TABLET. PO SCH (20:54)
[2016-07-22] MEDS: INSULIN DETEMIR 300 UNITS/3 ML INSULN.PEN. SQ SCH (20:59)
[2016-07-23] VITALS (24 sets, daily range): BP systolic 134–191; BP diastolic 57–98
[2016-07-23] MEDS: METOPROLOL TARTRATE 5 MG/5 ML VIAL. IVP SCH ×5 (00:15→23:33)
[2016-07-23] MEDS: FENTANYL PF 100 MCG/2 ML VIAL. IV PRN ×4 (01:23→23:33)
[2016-07-23] MEDS: hydrALAZINE 20 MG/ML VIAL. IVP PRN ×4 (02:34→20:46)
[2016-07-23] MEDS ORDERED: DIPHENHYDRAMINE 50 MG/ML VIAL. IVP PRN (04:47)
[2016-07-23] MEDS: HYDROCORTISONE SOD SUCC/PF 100 MG/2 ML VIAL. IV SCH ×3 (05:30→22:01)
[2016-07-23] MEDS: IV NORMAL SALINE 1000ML BAG 1,000 ML IV SCH (05:31)
[2016-07-23] MEDS: INSULIN ASPART 300 UNITS/3 ML INSULN.PEN SQ SCH ×5 (05:32→23:36)
[2016-07-23 05:55] LABS: BASO # 0.1 x10^3/uL (0.0-0.2); BASO % 0 % (0-3); EOS % 0 % (0-3); HEMATOCRIT 33.6 % (39.0-53.0); HEMOGLOBIN 10.9 g/dL (13.0-17.5); LYMPH # 0.9 x10^3/uL (1.0-4.8); LYMPH % 5 % (24-48); MEAN CORPUSCULAR HEMOGLOBIN 28 pg (25-35); MEAN CORPUSCULAR HGB CONC 33 g/dL (31-37); MEAN CORPUSCULAR VOLUME 87 fL (79-100); MONO % 9 % (0-9); NEUT % 85 % (31-73); PLATELET COUNT 202 x10^3/uL (140-400); RED BLOOD COUNT 3.86 x10^6/uL (4.30-5.70); RED CELL DISTRIBUTION WIDTH 14.7 % (11.5-14.5)
[2016-07-23 06:03] LABS: CALCIUM 8.3 mg/dL (8.5-10.1); GFR 88.6; POTASSIUM 3.4 mmol/L (3.5-5.1)
[2016-07-23 06:07] LABS: INR 1.5 (0.8-1.1); PROTHROMBIN TIME PATIENT 17.6 SEC (11.7-14.0)
[2016-07-23] MEDS: MUPIROCIN 2 % NASAL OINTMENT 22GM TUBE. NS SCH ×2 (07:36→20:45)
[2016-07-23] MEDS: IPRATROPIUM BROMIDE 0.5 MG/2.5 ML NEBU. NEB SCH ×4 (07:39→19:26)
[2016-07-23] MEDS: DOCUSATE SODIUM 100 MG CAPSULE. PO SCH ×2 (08:06→20:45)
[2016-07-23] MEDS ORDERED: HEPARIN for IV BOLUS 10,000 UNIT/10 ML VIAL. IV PRN ×2 (08:15)
[2016-07-23] MEDS: PANTOPRAZOLE IV PUSH 40 MG VIAL. IVP SCH (08:22)
[2016-07-23] MEDS: CHLORHEXIDINE 0.12% 15 ML MOUTHWASH. MM SCH (08:22)
[2016-07-23] MEDS: HEPARIN 25,000UTS/500ML PREMIX 500 ML IV PRN (08:24)
--- NOTE | 2016-07-23 08:54 | PDOC ---
PULMONARY PROGRESS NOTES Subjective EXTUBATED YESTERDAY NO INCREASE SOA Vitals Vital Signs Date Time Temp Pulse Resp B/P Pulse Ox O2 Delivery O2 Flow Rate FiO2 07/23/16 07:40 99 Venturi Mask 3.5 07/23/16 06:34 86 175/96 07/23/16 06:00 20 07/23/16 04:00 98.6 98.6 General: Alert HEENT: Other (nc at orally intubated, nose clear, ) Lungs: Other (decrease bs) Cardiovascular: S1, S2 Abdomen: Soft, Non-tender, Other (no groin tenderness) Neuro Exam: Alert Extremities: Other (trace edema) Skin: Warm Labs Laboratory Tests Test 07/21/16 12:01 07/21/16 18:00 07/21/16 21:47 07/21/16 23:51 Glucose (Fingerstick) 388mg/dL (70-99) 293mg/dL (70-99) 301mg/dL (70-99) 241mg/dL (70-99) Test 07/22/16 05:19 07/22/16 05:20 07/22/16 09:02 07/22/16 11:44 Glucose (Fingerstick) 329mg/dL (70-99) 315mg/dL (70-99) White Blood Count 13.3x10^3/uL (4.0-11.0) Red Blood Count 3.01x10^6/uL (4.30-5.70) Hemoglobin 8.5g/dL (13.0-17.5) Hematocrit 26.2% (39.0-53.0) Mean Corpuscular Volume 87fL (79-100) Mean Corpuscular Hemoglobin 28pg (25-35) Mean Corpuscular Hemoglobin Concent 33g/dL (31-37) Red Cell Distribution Width 14.9% (11.5-14.5) Platelet Count 165x10^3/uL (140-400) Prothrombin Time 16.0SEC (11.7-14.0) Prothromb Time International Ratio 1.4 (0.8-1.1) Heparin Anti-Xa Act, Unfractionated 0.43IU/mL (0.30-0.70) Sodium Level 145mmol/L (136-145) Potassium Level 3.5mmol/L (3.5-5.1) Chloride Level 110mmol/L (98-107) Carbon Dioxide Level 25mmol/L (21-32) Anion Gap 10 (6-14) Blood Urea Nitrogen 65mg/dL (8-26) Creatinine 1.2mg/dL (0.7-1.3) Estimated GFR (Cockcroft-Gault) 71.8 Glucose Level 357mg/dL (70-99) Calcium Level 8.1mg/dL (8.5-10.1) O2 Saturation 97% (92-99) Arterial Blood pH 7.38 (7.35-7.45) Arterial Blood pCO2 at Patient Temp 45mmHg (35-46) Arterial Blood pO2 at Patient Temp 100mmHg (65-108) Arterial Blood HCO3 26mmol/L (21-28) Arterial Blood Base Excess 1mmol/L (-3-3) FiO2 40 Test 07/22/16 17:36 07/22/16 20:56 07/23/16 00:16 07/23/16 05:31 Glucose (Fingerstick) 244mg/dL (70-99) 202mg/dL (70-99) 176mg/dL (70-99) 130mg/dL (70-99) Test 07/23/16 05:40 White Blood Count 18.0x10^3/uL (4.0-11.0) Red Blood Count 3.86x10^6/uL (4.30-5.70) Hemoglobin 10.9g/dL (13.0-17.5) Hematocrit 33.6% (39.0-53.0) Mean Corpuscular Volume 87fL (79-100) Mean Corpuscular Hemoglobin 28pg (25-35) Mean Corpuscular Hemoglobin Concent 33g/dL (31-37) Red Cell Distribution Width 14.7% (11.5-14.5) Platelet Count 202x10^3/uL (140-400) Neutrophils (%) (Auto) 85% (31-73) Lymphocytes (%) (Auto) 5% (24-48) Monocytes (%) (Auto) 9% (0-9) Eosinophils (%) (Auto) 0% (0-3) Basophils (%) (Auto) 0% (0-3) Neutrophils # (Auto) 15.3x10^3uL (1.8-7.7) Lymphocytes # (Auto) 0.9x10^3/uL (1.0-4.8) Monocytes # (Auto) 1.6x10^3/uL (0.0-1.1) Eosinophils # (Auto) 0.0x10^3/uL (0.0-0.7) Basophils # (Auto) 0.1x10^3/uL (0.0-0.2) Prothrombin Time 17.6SEC (11.7-14.0) Prothromb Time International Ratio 1.5 (0.8-1.1) Heparin Anti-Xa Act, Unfractionated 0.26IU/mL (0.30-0.70) Sodium Level 154mmol/L (136-145) Potassium Level 3.4mmol/L (3.5-5.1) Chloride Level 115mmol/L (98-107) Carbon Dioxide Level 30mmol/L (21-32) Anion Gap 9 (6-14) Blood Urea Nitrogen 44mg/dL (8-26) Creatinine 1.0mg/dL (0.7-1.3) Estimated GFR (Cockcroft-Gault) 88.6 Glucose Level 139mg/dL (70-99) Calcium Level 8.3mg/dL (8.5-10.1) Laboratory Tests Test 07/22/16 09:02 07/22/16 11:44 07/22/16 17:36 07/22/16 20:56 O2 Saturation 97% (92-99) Arterial Blood pH 7.38 (7.35-7.45) Arterial Blood pCO2 at Patient Temp 45mmHg (35-46) Arterial Blood pO2 at Patient Temp 100mmHg (65-108) Arterial Blood HCO3 26mmol/L (21-28) Arterial Blood Base Excess 1mmol/L (-3-3) FiO2 40 Glucose (Fingerstick) 315mg/dL (70-99) 244mg/dL (70-99) 202mg/dL (70-99) Test 07/23/16 00:16 07/23/16 05:31 07/23/16 05:40 Glucose (Fingerstick) 176mg/dL (70-99) 130mg/dL (70-99) White Blood Count 18.0x10^3/uL (4.0-11.0) Red Blood Count 3.86x10^6/uL (4.30-5.70) Hemoglobin 10.9g/dL (13.0-17.5) Hematocrit 33.6% (39.0-53.0) Mean Corpuscular Volume 87fL (79-100) Mean Corpuscular Hemoglobin 28pg (25-35) Mean Corpuscular Hemoglobin Concent 33g/dL (31-37) Red Cell Distribution Width 14.7% (11.5-14.5) Platelet Count 202x10^3/uL (140-400) Neutrophils (%) (Auto) 85% (31-73) Lymphocytes (%) (Auto) 5% (24-48) Monocytes (%) (Auto) 9% (0-9) Eosinophils (%) (Auto) 0% (0-3) Basophils (%) (Auto) 0% (0-3) Neutrophils # (Auto) 15.3x10^3uL (1.8-7.7) Lymphocytes # (Auto) 0.9x10^3/uL (1.0-4.8) Monocytes # (Auto) 1.6x10^3/uL (0.0-1.1) Eosinophils # (Auto) 0.0x10^3/uL (0.0-0.7) Basophils # (Auto) 0.1x10^3/uL (0.0-0.2) Prothrombin Time 17.6SEC (11.7-14.0) Prothromb Time International Ratio 1.5 (0.8-1.1) Heparin Anti-Xa Act, Unfractionated 0.26IU/mL (0.30-0.70) Sodium Level 154mmol/L (136-145) Potassium Level 3.4mmol/L (3.5-5.1) Chloride Level 115mmol/L (98-107) Carbon Dioxide Level 30mmol/L (21-32) Anion Gap 9 (6-14) Blood Urea Nitrogen 44mg/dL (8-26) Creatinine 1.0mg/dL (0.7-1.3) Estimated GFR (Cockcroft-Gault) 88.6 Glucose Level 139mg/dL (70-99) Calcium Level 8.3mg/dL (8.5-10.1) Medications Active Scripts Medications Dose Route/Sig Days Date Category Advair 100-50 Diskus (Fluticasone/Salmeterol) 1 Each Disk.w.dev 1 Puff IH BID 06/21/16 Reported Spiriva Respimat (Tiotropium [place]) 4 Gm Mist.inhal 2.5 Gm IH DAILY 06/21/16 Reported Symbicort 160-4.5 Mcg Inhaler (Budesonide/Formoterol Fumarate) 10.2 Gm Hfa.aer.ad 2 Puff IH BID 06/21/16 Reported Atorvastatin Calcium 20 Mg Tablet 20 Mg PO HS 06/21/16 Reported Lisinopril-Hctz 10-12.5 Mg Tab (Lisinopril/Hydrochlorothiazide) 1 Each Tablet 1 Tab PO DAILY 06/21/16 Reported Isosorbide Mononitrate Er (Isosorbide Mononitrate) 120 Mg Tab.er.24h 120 Mg PO DAILY 06/21/16 Reported Levemir Flextouch (Insulin Detemir) 100 Unit/1 Ml Insuln.pen 20 Units SQ QHS 30 11/24/15 Rx Novolog Flexpen (Insulin Aspart) 100 Unit/1 Ml Insuln.pen 10 Units SQ TIDAC 30 11/24/15 Rx Novolin N (Nph, Human Insulin Isophane) 100 Unit/1 Ml Vial 0 SQ 11/18/15 Reported Promethazine-Codeine Syrup (Promethazine Hcl/Codeine) 118 Ml Syrup 5 Ml PO Q4-6HRS 11/18/15 Reported Diltiazem 24HR Cd (Diltiazem Hcl) 240 Mg Cap.er.24h 240 Mg PO DAILY 11/18/15 Reported NITROGLYCERIN SubLingual (Nitroglycerin) 0.4 Mg Tab.subl 0.4 Mg SL PRN Q5MIN PRN 11/18/15 Reported Atorvastatin Calcium 40 Mg Tablet 40 Mg PO HS 11/18/[address] reviewed, 1. Widespread multifocal bilateral segmental pulmonary embolism, with nonocclusive lobar embolism involving the right lower and middle lobes. 2. Diffuse tree-in-bud opacification suggestive of acute bronchiolitis. Findings are less confluence than on the prior examination, but now involve the lower lobes. 3. Right heart enlargement with straightening of the interventricular septum possibly due to pulmonary hypertension. Correlate clinically and consider echocardiography if warranted. 4. Short segment high-grade stricture and/or focal obliteration of the right upper lobe bronchus. No adjacent mass or evidence of extrinsic compression. This is stable. CXR REVIEWED Impression . 1. Acute respiratory failure secondary to angioedema, self extubated 07/14, reintubated 07/15, s/p cardiopulmonary arrest, Acute extensive PE, DVT, s/p TPA 2. Acute extensive PE with shock, DVT, s/p TPA, off pressors 2. Lisinopril induced angioedema. resolved 3. Chronic obstructive pulmonary disease. 4. Hypertension. 5. Coronary artery disease. s/p emergent cath.no sig disease 6. BASIM, improving 7. anemia,improved, off AC Plan . D/W RN AND RT WILL CONTINUE THE SAME TUBE FEEDING FOR NOW DYSPHAGIA D/W 1. CXR reviewed some effusion and atelectasis 2. Continue steroids, start taper 3. GI prophylaxis. 4. follow nephro rec 5. re-start Heparin protocol. follow Hb closely 6. Tube feeding for now, will need speech evaluation 7. NEBS CCT 30 minutes DOUGIE RIVAS MD Jul 23, 2016 08:54
--- NOTE | 2016-07-23 09:49 | PDOC ---
Subjective: Subjective: Asks me to remove mitts. Denies abd pain. Objective: Objective: Per RN - asking to eat, stooled yesterday. Vital Signs: Vital Signs Date Time Temp Pulse Resp B/P Pulse Ox O2 Delivery O2 Flow Rate FiO2 07/23/16 07:40 99 Venturi Mask 3.5 07/23/16 06:34 86 175/96 07/23/16 06:00 20 07/23/16 04:00 98.6 98.6 Labs: Laboratory Tests Test 07/22/16 11:44 07/22/16 17:36 07/22/16 20:56 07/23/16 00:16 Glucose (Fingerstick) 315mg/dL 244mg/dL 202mg/dL 176mg/dL Test 07/23/16 05:31 07/23/16 05:40 Glucose (Fingerstick) 130mg/dL White Blood Count 18.0x10^3/uL Red Blood Count 3.86x10^6/uL Hemoglobin 10.9g/dL Hematocrit 33.6% Mean Corpuscular Volume 87fL Mean Corpuscular Hemoglobin 28pg Mean Corpuscular Hemoglobin Concent 33g/dL Red Cell Distribution Width 14.7% Platelet Count 202x10^3/uL Neutrophils (%) (Auto) 85% Lymphocytes (%) (Auto) 5% Monocytes (%) (Auto) 9% Eosinophils (%) (Auto) 0% Basophils (%) (Auto) 0% Neutrophils # (Auto) 15.3x10^3uL Lymphocytes # (Auto) 0.9x10^3/uL Monocytes # (Auto) 1.6x10^3/uL Eosinophils # (Auto) 0.0x10^3/uL Basophils # (Auto) 0.1x10^3/uL Platelet Estimate Pending Prothrombin Time 17.6SEC Prothromb Time International Ratio 1.5 Heparin Anti-Xa Act, Unfractionated 0.26IU/mL Sodium Level 154mmol/L Potassium Level 3.4mmol/L Chloride Level 115mmol/L Carbon Dioxide Level 30mmol/L Anion Gap 9 Blood Urea Nitrogen 44mg/dL Creatinine 1.0mg/dL Estimated GFR (Cockcroft-Gault) 88.6 Glucose Level 139mg/dL Calcium Level 8.3mg/dL PE: GEN: NAD LUNGS: Venturi mask HEART: S1S2 ABD: NABS, S/ND/NT NEURO/PSYCH: A & O A/P: Acute resp failure, s/p arrest, s/p cardiac cath, PE and DVT s/p TPA -extubated, has Dobhoff Anemia -Hgb improved, has had intermittent transfusions, no GI bleeding -on PPI IV, also Heparin -- Continue same per GI, await [employer] eval. SANDOR SARMIENTO Jul 23, 2016 09:49
[2016-07-23 09:50] LABS: PLT ESTIMATE ADEQUATE (ADEQUATE)
--- NOTE | 2016-07-23 10:35 | PDOC ---
PROGRESS NOTES Chief Complaint Chief Complaint Angioedema - angioedema, likely 2/2 to ACEI; self extubated 07/14/16 - resolved - s/p CP arrest (PEA) sec to Multiple bilateral PE (07/15) - Non-occlusive thrombus, R leg (07/15) - COPD exacerbation - Low TSH levels in a critically ill patient - DM2; insulin requiring - Oliguric Hyperkalemic renal failure - Metabolic acidosis s/p arrest - Dyslipidemia on statin - Hypotensive shock, resolved and off pressors - Acute respiratory failure - intubated again (07/15) secondary to code blue ( PEA # 2) History of Present Illness History of Present Illness Seen in ICU this AM. Self extubated and breathing well on his own at this time. O2 sat 99%- venturi mask. Is awake and moving arms. off pressors - BP 175/96. Discussed case with RN. Pt had been asking for water. Awaiting speech/swallow eval. Glucose control improved. Vitals Vitals Vital Signs Date Time Temp Pulse Resp B/P Pulse Ox O2 Delivery O2 Flow Rate FiO2 07/23/16 07:40 99 Venturi Mask 3.5 07/23/16 06:34 86 175/96 07/23/16 06:00 20 07/23/16 04:00 98.6 98.6 Physical Exam Physical Exam eyes- bilateral periorbital / subconjunctival edema General: Alert, Cooperative, No acute distress Heart: Regular rate, Normal S1, Normal S2, No murmurs, Gallops Lungs: Other (decrease bs) Abdomen: Normal bowel sounds, Soft, No tenderness, No hepatosplenomegaly, No masses Extremities: No clubbing, No cyanosis, No edema, Normal pulses, No tenderness/ swelling Skin: No rashes Labs LABS Laboratory Tests Test 07/22/16 11:44 07/22/16 17:36 07/22/16 20:56 07/23/16 00:16 Glucose (Fingerstick) 315mg/dL (70-99) 244mg/dL (70-99) 202mg/dL (70-99) 176mg/dL (70-99) Test 07/23/16 05:31 07/23/16 05:40 Glucose (Fingerstick) 130mg/dL (70-99) White Blood Count 18.0x10^3/uL (4.0-11.0) Red Blood Count 3.86x10^6/uL (4.30-5.70) Hemoglobin 10.9g/dL (13.0-17.5) Hematocrit 33.6% (39.0-53.0) Mean Corpuscular Volume 87fL (79-100) Mean Corpuscular Hemoglobin 28pg (25-35) Mean Corpuscular Hemoglobin Concent 33g/dL (31-37) Red Cell Distribution Width 14.7% (11.5-14.5) Platelet Count 202x10^3/uL (140-400) Neutrophils (%) (Auto) 85% (31-73) Lymphocytes (%) (Auto) 5% (24-48) Monocytes (%) (Auto) 9% (0-9) Eosinophils (%) (Auto) 0% (0-3) Basophils (%) (Auto) 0% (0-3) Neutrophils # (Auto) 15.3x10^3uL (1.8-7.7) Lymphocytes # (Auto) 0.9x10^3/uL (1.0-4.8) Monocytes # (Auto) 1.6x10^3/uL (0.0-1.1) Eosinophils # (Auto) 0.0x10^3/uL (0.0-0.7) Basophils # (Auto) 0.1x10^3/uL (0.0-0.2) Segmented Neutrophils % 88% (35-66) Lymphocytes % 5% (24-48) Monocytes % 6% (0-10) Metamyelocytes % 1% (0-0) Platelet Estimate Adequate (ADEQUATE) Prothrombin Time 17.6SEC (11.7-14.0) Prothromb Time International Ratio 1.5 (0.8-1.1) Heparin Anti-Xa Act, Unfractionated 0.26IU/mL (0.30-0.70) Sodium Level 154mmol/L (136-145) Potassium Level 3.4mmol/L (3.5-5.1) Chloride Level 115mmol/L (98-107) Carbon Dioxide Level 30mmol/L (21-32) Anion Gap 9 (6-14) Blood Urea Nitrogen 44mg/dL (8-26) Creatinine 1.0mg/dL (0.7-1.3) Estimated GFR (Cockcroft-Gault) 88.6 Glucose Level 139mg/dL (70-99) Calcium Level 8.3mg/dL (8.5-10.1) Review of Systems Review of Systems afebrile + bilateral periorbital / subconjunctival edema alert, moving upper extremities Assessment and Plan Assessmemt and Plan Problems Medical Problems: (1) COPD exacerbation Status: Acute (2) Hyperglycemia Status: Acute ASSESSMENT: - angioedema likely 2/2 ACEI; self extubated 07/14/16 - resolved - s/p CP arrest (PEA) sec to Multiple bilateral PE (07/15) - Non-occlusive thrombus, R leg (07/15) - COPD exacerbation - Low TSH levels in a critically ill patient - DM2; insulin requiring - Oliguric Hyperkalemic renal failure - Metabolic acidosis s/p arrest - Dyslipidemia on statin - Hypotensive shock, resolved and off pressors - Acute respiratory failure - intubated again (07/15) secondary to code blue ( PEA # 2) PLAN: - LTAC eval pending - KCl 40 mEq IV for K+ 3.4 - speech/swallow eval pending - self extubated; breathing fine at this time with venturi mask; cont to monitor - cont high dose SSI and Levemir ; glucose improved - cont Colace 100 mg BID - cont tube feeds - appreciate palliative care on the case - patient remains critically ill; Full code for now - appreciate all subspecialists on the case - cont PRN IVF - repeat daily labs - cont steroids; cont Atrovent per pulm Problems: Comment Review of Relevant I have reviewed the following items valerie (where applicable) has been applied. Labs Laboratory Tests Test 07/21/16 12:01 07/21/16 18:00 07/21/16 21:47 07/21/16 23:51 Glucose (Fingerstick) 388mg/dL (70-99) 293mg/dL (70-99) 301mg/dL (70-99) 241mg/dL (70-99) Test 07/22/16 05:19 07/22/16 05:20 07/22/16 09:02 07/22/16 11:44 Glucose (Fingerstick) 329mg/dL (70-99) 315mg/dL (70-99) White Blood Count 13.3x10^3/uL (4.0-11.0) Red Blood Count 3.01x10^6/uL (4.30-5.70) Hemoglobin 8.5g/dL (13.0-17.5) Hematocrit 26.2% (39.0-53.0) Mean Corpuscular Volume 87fL (79-100) Mean Corpuscular Hemoglobin 28pg (25-35) Mean Corpuscular Hemoglobin Concent 33g/dL (31-37) Red Cell Distribution Width 14.9% (11.5-14.5) Platelet Count 165x10^3/uL (140-400) Prothrombin Time 16.0SEC (11.7-14.0) Prothromb Time International Ratio 1.4 (0.8-1.1) Heparin Anti-Xa Act, Unfractionated 0.43IU/mL (0.30-0.70) Sodium Level 145mmol/L (136-145) Potassium Level 3.5mmol/L (3.5-5.1) Chloride Level 110mmol/L (98-107) Carbon Dioxide Level 25mmol/L (21-32) Anion Gap 10 (6-14) Blood Urea Nitrogen 65mg/dL (8-26) Creatinine 1.2mg/dL (0.7-1.3) Estimated GFR (Cockcroft-Gault) 71.8 Glucose Level 357mg/dL (70-99) Calcium Level 8.1mg/dL (8.5-10.1) O2 Saturation 97% (92-99) Arterial Blood pH 7.38 (7.35-7.45) Arterial Blood pCO2 at Patient Temp 45mmHg (35-46) Arterial Blood pO2 at Patient Temp 100mmHg (65-108) Arterial Blood HCO3 26mmol/L (21-28) Arterial Blood Base Excess 1mmol/L (-3-3) FiO2 40 Test 07/22/16 17:36 07/22/16 20:56 07/23/16 00:16 07/23/16 05:31 Glucose (Fingerstick) 244mg/dL (70-99) 202mg/dL (70-99) 176mg/dL (70-99) 130mg/dL (70-99) Test 3/31/17 05:40 White Blood Count 18.0x10^3/uL (4.0-11.0) Red Blood Count 3.86x10^6/uL (4.30-5.70) Hemoglobin 10.9g/dL (13.0-17.5) Hematocrit 33.6% (39.0-53.0) Mean Corpuscular Volume 87fL (79-100) Mean Corpuscular Hemoglobin 28pg (25-35) Mean Corpuscular Hemoglobin Concent 33g/dL (31-37) Red Cell Distribution Width 14.7% (11.5-14.5) Platelet Count 202x10^3/uL (140-400) Neutrophils (%) (Auto) 85% (31-73) Lymphocytes (%) (Auto) 5% (24-48) Monocytes (%) (Auto) 9% (0-9) Eosinophils (%) (Auto) 0% (0-3) Basophils (%) (Auto) 0% (0-3) Neutrophils # (Auto) 15.3x10^3uL (1.8-7.7) Lymphocytes # (Auto) 0.9x10^3/uL (1.0-4.8) Monocytes # (Auto) 1.6x10^3/uL (0.0-1.1) Eosinophils # (Auto) 0.0x10^3/uL (0.0-0.7) Basophils # (Auto) 0.1x10^3/uL (0.0-0.2) Segmented Neutrophils % 88% (35-66) Lymphocytes % 5% (24-48) Monocytes % 6% (0-10) Metamyelocytes % 1% (0-0) Platelet Estimate Adequate (ADEQUATE) Prothrombin Time 17.6SEC (11.7-14.0) Prothromb Time International Ratio 1.5 (0.8-1.1) Heparin Anti-Xa Act, Unfractionated 0.26IU/mL (0.30-0.70) Sodium Level 154mmol/L (136-145) Potassium Level 3.4mmol/L (3.5-5.1) Chloride Level 115mmol/L (98-107) Carbon Dioxide Level 30mmol/L (21-32) Anion Gap 9 (6-14) Blood Urea Nitrogen 44mg/dL (8-26) Creatinine 1.0mg/dL (0.7-1.3) Estimated GFR (Cockcroft-Gault) 88.6 Glucose Level 139mg/dL (70-99) Calcium Level 8.3mg/dL (8.5-10.1) Laboratory Tests Test 07/22/16 11:44 07/22/16 17:36 07/22/16 20:56 07/23/16 00:16 Glucose (Fingerstick) 315mg/dL (70-99) 244mg/dL (70-99) 202mg/dL (70-99) 176mg/dL (70-99) Test 07/23/16 05:31 07/23/16 05:40 Glucose (Fingerstick) 130mg/dL (70-99) White Blood Count 18.0x10^3/uL (4.0-11.0) Red Blood Count 3.86x10^6/uL (4.30-5.70) Hemoglobin 10.9g/dL (13.0-17.5) Hematocrit 33.6% (39.0-53.0) Mean Corpuscular Volume 87fL (79-100) Mean Corpuscular Hemoglobin 28pg (25-35) Mean Corpuscular Hemoglobin Concent 33g/dL (31-37) Red Cell Distribution Width 14.7% (11.5-14.5) Platelet Count 202x10^3/uL (140-400) Neutrophils (%) (Auto) 85% (31-73) Lymphocytes (%) (Auto) 5% (24-48) Monocytes (%) (Auto) 9% (0-9) Eosinophils (%) (Auto) 0% (0-3) Basophils (%) (Auto) 0% (0-3) Neutrophils # (Auto) 15.3x10^3uL (1.8-7.7) Lymphocytes # (Auto) 0.9x10^3/uL (1.0-4.8) Monocytes # (Auto) 1.6x10^3/uL (0.0-1.1) Eosinophils # (Auto) 0.0x10^3/uL (0.0-0.7) Basophils # (Auto) 0.1x10^3/uL (0.0-0.2) Segmented Neutrophils % 88% (35-66) Lymphocytes % 5% (24-48) Monocytes % 6% (0-10) Metamyelocytes % 1% (0-0) Platelet Estimate Adequate (ADEQUATE) Prothrombin Time 17.6SEC (11.7-14.0) Prothromb Time International Ratio 1.5 (0.8-1.1) Heparin Anti-Xa Act, Unfractionated 0.26IU/mL (0.30-0.70) Sodium Level 154mmol/L (136-145) Potassium Level 3.4mmol/L (3.5-5.1) Chloride Level 115mmol/L (98-107) Carbon Dioxide Level 30mmol/L (21-32) Anion Gap 9 (6-14) Blood Urea Nitrogen 44mg/dL (8-26) Creatinine 1.0mg/dL (0.7-1.3) Estimated GFR (Cockcroft-Gault) 88.6 Glucose Level 139mg/dL (70-99) Calcium Level 8.3mg/dL (8.5-10.1) Microbiology 07/15/16 Blood Culture - Final, Complete NO GROWTH AFTER 5 DAYS 07/14/16 Urine Culture - Final, Complete 07/14/16 Urine Culture Result 1 (MARÍA) - Final, Complete 07/14/16 Urine Culture Result 2 (MARÍA) - Final, Complete 07/14/16 Antimicrobic Susceptibility - Final, Complete Medications Current Medications Albuterol/ Ipratropium (Duoneb) 6 ml 1X ONCE NEB Last administered on 12:34; Start 07/12/16 at 12:30; Stop 07/12/16 at 12:31; Status DC Prednisone 60 mg 60 mg 1X ONCE PO Last administered on 07/12/16 12:40; Start 07/12/16 at 12:30; Stop 07/12/16 at 12:31; Status DC Sodium Chloride (Iv Sodium Chloride 0.9% 1000ml Bag) 1,000 ml @ 1,000 mls/hr 1X ONCE IV Last administered on 07/12/16 13:12; Start 07/12/16 at 13:15; Stop 07/12/16 at 14:14; Status DC Insulin Human Regular (Novolin R Vial) 10 unit 1X ONCE IV Last administered on 07/12/16 13:16; Start 07/12/16 at 13:15; Stop 07/12/16 at 13:16; Status DC Diphenhydramine HCl (Benadryl) 50 mg STK-MED ONCE .ROUTE ; Start 07/12/16 at 14: 55; Stop 07/12/16 at 14:56; Status DC Diphenhydramine HCl (Benadryl) 50 mg 1X ONCE IVP Last administered on 15:15; Start 07/12/16 at 15:15; Stop 07/12/16 at 15:16; Status DC Atorvastatin Calcium (Lipitor) 40 mg HS PO Last administered on 07/22/16 20:54 ; Start 07/12/16 at 21:00 Diltiazem HCl (Cardizem 24hr Cd) 240 mg DAILY PO ; Start 07/12/16 at 16:30; Stop 07/13/16 at 17:18; Status DC Insulin Aspart (Novolog) 10 units TIDAC SQ ; Start 07/12/16 at 16:30; Stop 07/12 at 16:30; Status DC Insulin Detemir (Levemir) 20 units QHS SQ ; Start 07/12/16 at 21:00; Stop at 21:00; Status DC Promethazine HCl/ Codeine (Phenergan With Codeine) 5 ml QID PO ; Start 07/12/16 at 17:00; Stop 07/13/16 at 17:18; Status DC Non-Formulary Medication 2 puff BID IH ; Start 07/12/16 at 21:00; Status UNV Non-Formulary Medication 2.5 gm DAILY IH ; Start 07/13/16 at 09:00; Status UNV Budesonide (Pulmicort) 0.5 mg RTBID NEB Last administered on 07/13/16 07:30; Start 07/12/16 at 20:00; Stop 07/13/16 at 11:27; Status DC Albuterol/ Ipratropium (Duoneb) 3 ml RTQID NEB Last administered on 07/16/16 07:47; Start 07/12/16 at 20:00; Stop 07/16/16 at 08:38; Status DC Methylprednisolone Sodium Succinate (Solu-Medrol 40mg Vial) 60 mg 1X ONCE IV Last administered on 07/12/16 16:06; Start 07/12/16 at 16:30; Stop 07/12/16 at 16:31; Status DC Methylprednisolone Sodium Succinate (Solu-Medrol 40mg Vial) 60 mg DAILY IV ; Start 07/13/16 at 09:00; Stop 07/13/16 at 09:00; Status DC Pantoprazole Sodium (Protonix Vial) 40 mg DAILY IVP Last administered on 08:43; Start 07/13/16 at 09:00; Stop 07/17/16 at 20:37; Status DC Diphenhydramine HCl 25 mg 25 mg PRN Q6HRS PRN IVP ANAPHYLAXIS Last administered on 07/12/16 16:06; Start 07/12/16 at 16:00; Stop 07/23/16 at 04:47 ; Status DC Sodium Chloride (Iv Sodium Chloride 0.9% 1000ml Bag) 1,000 ml @ 150 mls/hr Q6H40M IV Last administered on 07/14/16 01:21; Start 07/12/16 at 16:30; Stop 07/14/16 at 09:31; Status DC Albuterol/ Ipratropium (Duoneb) 3 ml QID NEB ; Start 07/12/16 at 17:00; Status UNV Albuterol Sulfate (Ventolin Neb Soln) 2.5 mg PRN Q2HR PRN NEB SHORTNESS OF BREATH Last administered on 07/19/16 11:20; Start 07/12/16 at 16:00 Insulin Aspart (Novolog) 0-9 UNITS QID SQ Last administered on 07/14/16 08:37 ; Start 07/12/16 at 17:00; Stop 07/14/16 at 09:31; Status DC Dextrose 12.5 gm PRN Q15MIN PRN IV SEE COMMENTS; Start 07/12/16 at 16:00; Stop 07/15/16 at 12:46; Status DC Insulin Detemir (Levemir) 15 units QHS SQ ; Start 07/12/16 at 21:00; Stop at 21:00; Status DC Enoxaparin Sodium (Lovenox 40mg Syringe) 40 mg DAILY SQ Last administered on 08:54; Start 07/12/16 at 16:30; Stop 07/15/16 at 14:28; Status DC Insulin Detemir (Levemir) 20 units QHS SQ Last administered on 07/12/16 23:49 ; Start 07/12/16 at 21:00; Stop 07/13/16 at 15:18; Status DC Succinylcholine Chloride 200 mg 200 mg STK-MED ONCE .ROUTE ; Start 07/12/16 at 17:46; Stop 07/12/16 at 17:47; Status DC Propofol (Diprivan) 100 ml @ As Directed STK-MED ONCE IV ; Start 07/12/16 at 17 :46; Stop 07/12/16 at 17:47; Status DC Lidocaine HCl 100 mg STK-MED ONCE .ROUTE ; Start 07/12/16 at 18:02; Stop at 18:03; Status DC Ketamine HCl 500 mg 1X ONCE IV ; Start 07/12/16 at 18:30; Stop 07/12/16 at 18: 31; Status DC Midazolam HCl (Versed) 5 mg STK-MED ONCE .ROUTE ; Start 07/12/16 at 18:14; Stop 07/12/16 at 18:15; Status DC Midazolam HCl (Versed) 2 mg 1X ONCE IV ; Start 07/12/16 at 18:30; Stop at 18:31; Status DC Glycopyrrolate (Robinul) 1 mg 1X ONCE IV ; Start 07/12/16 at 18:30; Stop at 18:31; Status DC Oxymetazoline HCl (Afrin) 2 spray 1X ONCE NS ; Start 07/12/16 at 18:30; Stop at 18:31; Status DC Lidocaine HCl 30 ml STK-MED ONCE .ROUTE ; Start 07/12/16 at 18:19; Stop at 18:20; Status DC Vecuronium [place] 6 mg 6 mg PRN Q4HRS PRN IV ANXIETY / AGITATION Last administered on 07/12/16 19:55; Start 07/12/16 at 19:00; Stop 07/15/16 at 07:58 ; Status DC Propofol (Diprivan) 100 ml @ 0 mls/hr CONT PRN IV SEE I/O RECORD Last administered on 07/14/16 13:42; Start 07/12/16 at 19:00; Stop 07/15/16 at 07:58 ; Status DC Insulin Aspart 10 units 10 units 1X ONCE SQ Last administered on 07/12/16 19: 41; Start 07/12/16 at 19:45; Stop 07/12/16 at 19:46; Status DC Vecuronium [place] 100 mg/ Dextrose 100 ml @ 0 mls/hr CONT PRN IV SEE I/O RECORD Last administered on 07/13/16 20:48; Start 07/12/16 at 21:00; Stop 07/14 at 09:31; Status DC Fentanyl Citrate (Fentanyl 600 Mcg/30 ml [employer]) 30 ml @ 0 mls/hr CONT PRN IV PROTOCOL Last administered on 07/14/16 09:33; Start 07/12/16 at 22:00; Stop at 07:58; Status DC Chlorhexidine Gluconate (Peridex) 15 ml BID MM Last administered on 07/23/16 08:22; Start 07/13/16 at 09:00; Stop 07/23/16 at 09:42; Status DC Methylprednisolone Sodium Succinate (Solu-Medrol 125mg Vial) 125 mg BID IV Last administered on 07/14/16 21:02; Start 07/13/16 at 09:00; Stop 07/15/16 at 07:58; Status DC Rocuronium [place] (Zemuron) 50 mg STK-MED ONCE .ROUTE ; Start 07/12/16 at 15:00 ; Stop 07/13/16 at 08:54; Status DC Glycopyrrolate (Robinul) 1 mg STK-MED ONCE .ROUTE ; Start 07/12/16 at 15:00; Stop 07/13/16 at 08:54; Status DC Lidocaine HCl 30 ml STK-MED ONCE .ROUTE ; Start 07/12/16 at 18:00; Stop at 09:05; Status DC Midazolam HCl (Versed) 5 mg STK-MED ONCE .ROUTE ; Start 07/12/16 at 18:00; Stop 07/13/16 at 09:05; Status DC Propofol (Diprivan) 1,000 mg STK-MED ONCE IV ; Start 07/12/16 at 18:00; Stop at 09:05; Status DC Succinylcholine Chloride (Anectine) 200 mg STK-MED ONCE .ROUTE ; Start 07/12/16 at 18:00; Stop 07/13/16 at 09:05; Status DC Multi-Ingred Cream/Lotion/Oil/ Oint (Artificial Tears Eye Oint) 1 margie PRN Q1HR PRN OU DRY EYE Last administered on 07/13/16 15:45; Start 07/13/16 at 11:00 Ketamine HCl 500 mg STK-MED ONCE .ROUTE ; Start 07/12/16 at 18:30; Stop at 12:05; Status DC Insulin Aspart (Novolog) 10 units 1X STAT SQ Last administered on 07/13/16 12 :36; Start 07/13/16 at 12:17; Stop 07/13/16 at 12:20; Status DC Insulin Aspart (Novolog) 10 units 1X ONCE SQ Last administered on 07/13/16 14 :31; Start 07/13/16 at 14:30; Stop 07/13/16 at 14:31; Status DC Insulin Detemir (Levemir) 40 units QHS SQ Last administered on 07/13/16 20:50 ; Start 07/13/16 at 21:00; Stop 07/14/16 at 09:31; Status DC Benzocaine (Hurricaine One) 1 spray STK-MED ONCE .ROUTE ; Start 07/12/16 at 12: 00; Stop 07/13/16 at 16:00; Status DC Lidocaine HCl 5 margie 5 margie STK-MED ONCE TP ; Start 07/12/16 at 12:00; Stop at 16:00; Status DC Insulin Human Regular/Sodium Chloride (Novolin R Vial/ Iv Normal Saline 150ml) 151.5 ml @ 0 mls/hr CONT PRN IV SEE I/O RECORD Last administered on 07/14/16 10:01; Start 07/14/16 at 09:30; Stop 07/15/16 at 07:58; Status DC Info 1 each 1 each PRN DAILY PRN MC SEE COMMENTS Last administered on 08:27; Start 07/14/16 at 09:30; Stop 07/19/16 at 16:30; Status DC Magnesium Sulfate/ Dextrose 50 ml @ 25 mls/hr PRN DAILY PRN IV for Mag < 1.7 on am labs; Start 07/14/16 at 11:15; Stop 07/15/16 at 07:58; Status DC Sodium Chloride 500 ml @ 500 mls/hr QID PRN IV UO< 30cc/hr over previous 6hrs ; Start 07/14/16 at 11:15; Stop 07/14/16 at 11:26; Status DC Sodium Chloride 500 ml @ 500 mls/hr PRN QID PRN IV UO< 30cc/hr over previous 6hrs Last administered on 07/16/16 10:00; Start 07/14/16 at 11:26 Ceftriaxone Sodium 1 gm/ Sodium Chloride 50 ml @ 100 mls/hr Q24H IV Last administered on 07/19/16 12:25; Start 07/14/16 at 12:00; Stop 07/20/16 at 12:29 ; Status DC Sodium Chloride/ Magnesium Sulfate/ Calcium Gluconate/ Multivitamins/ Chromium/ Copper/ Manganese/Seleni/ Zn/Total Parenteral Nutrition/Amino Acids/Dextrose ( Sodium Chloride/ Infuvite Adult/ Multitrace-5 Conc/ Tpn - Tpn Fluid/ Trophamine / Dextrose 70%-Water Iv Soln) 1,512 ml @ 63 mls/hr TPN CONT IV Last administered on 07/14/16 22:29; Start 07/14/16 at 22:00; Stop 07/15/16 at 21:59 ; Status DC Hydralazine HCl (Apresoline) 10 mg PRN Q4HRS PRN IVP ELEVATED BP, SEE COMMENTS Last administered on 07/23/16 06:34; Start 07/14/16 at 22:30 Methylprednisolone Sodium Succinate (Solu-Medrol 125mg Vial) 125 mg DAILY IV Last administered on 07/15/16 08:55; Start 07/15/16 at 09:00; Stop 07/16/16 at 08:35; Status DC Insulin Aspart (Novolog) 0-9 UNITS TIDWMEALS SQ Last administered on 07/15/16 16:16; Start 07/15/16 at 08:00; Stop 07/16/16 at 07:16; Status DC Dextrose 12.5 gm PRN Q15MIN PRN IV SEE COMMENTS; Start 07/15/16 at 08:00; Stop 07/19/16 at 10:53; Status DC Insulin Detemir (Levemir) 20 units QHS SQ Last administered on 07/15/16 21:48 ; Start 07/15/16 at 21:00; Stop 07/16/16 at 07:16; Status DC Insulin Aspart (Novolog) 10 units TIDAC SQ ; Start 07/15/16 at 11:30; Stop 07/16 at 07:16; Status DC Sodium Polystyrene Sulfonate (Kayexalate) 30 gm 1X ONCE PO ; Start 07/15/16 at 08:00; Stop 07/15/16 at 08:08; Status DC Hydrochlorothiazide (Microzide) 12.5 mg DAILY PO ; Start 07/15/16 at 09:00; Stop 07/16/16 at 07:39; Status DC Isosorbide Mononitrate (Imdur) 120 mg DAILY PO ; Start 07/15/16 at 09:00; Stop 07/15/16 at 09:00; Status DC Diltiazem HCl (Cardizem 24hr Cd) 240 mg DAILY PO ; Start 07/15/16 at 09:00; Stop 07/16/16 at 07:39; Status DC Guaifenesin (Mucinex) 600 mg BID PO ; Start 07/15/16 at 09:00; Stop 07/16/16 at 07:39; Status DC Mupirocin (Bactroban) 1 margie BID NS Last administered on 07/23/16 07:36; Start 07/15/16 at 09:00 Isosorbide Mononitrate (Imdur) 120 mg DAILY PO ; Start 07/15/16 at 09:00; Stop 07/16/16 at 07:39; Status DC Sodium Bicarbonate 50 meq 1X ONCE IV Last administered on 07/15/16 15:22; Start 07/15/16 at 10:45; Stop 07/15/16 at 10:46; Status DC Sodium Bicarbonate 50 meq 50 meq STK-MED ONCE .ROUTE ; Start 07/15/16 at 10:34; Stop 07/15/16 at 10:35; Status DC Dopamine HCl/ Dextrose 250 ml @ As Directed STK-MED ONCE IV ; Start 07/15/16 at 10:37; Stop 07/15/16 at 10:38; Status DC Midazolam HCl (Versed) 5 mg STK-MED ONCE .ROUTE ; Start 07/15/16 at 10:41; Stop 07/15/16 at 10:42; Status DC Iohexol 100 ml 100 ml STK-MED ONCE .ROUTE ; Start 07/15/16 at 10:45; Stop at 10:46; Status DC Heparin Sodium/ Sodium Chloride 1,500 ml @ As Directed STK-MED ONCE .ROUTE ; Start 07/15/16 at 10:45; Stop 07/15/16 at 10:46; Status DC Lidocaine HCl 20 ml 20 ml STK-MED ONCE .ROUTE ; Start 07/15/16 at 10:45; Stop at 10:46; Status DC Dopamine HCl/ Dextrose 250 ml @ 16.255 mls/ hr CONT PRN IV SEE I/O RECORD Last administered on 07/16/16 23:10; Start 07/15/16 at 11:00 Sodium Chloride 1,000 ml @ 1,000 mls/hr 1X ONCE IV Last administered on 11:00; Start 07/15/16 at 11:00; Stop 07/15/16 at 11:59; Status DC Norepinephrine Bitartrate/Sodium Chloride (Levophed Vial/ Iv Sodium Chloride 0.9 % 250ml) 258 ml @ 0 mls/hr CONT PRN IV SEE I/O RECORD Last administered on 07/17 00:51; Start 07/15/16 at 11:00 Midazolam HCl (Versed) 5 mg STK-MED ONCE .ROUTE ; Start 07/15/16 at 10:54; Stop 07/15/16 at 10:55; Status DC Fentanyl Citrate (Fentanyl 2ml Vial) 100 mcg STK-MED ONCE .ROUTE ; Start at 11:02; Stop 07/15/16 at 11:03; Status DC Vecuronium [place] 10 mg 10 mg STK-MED ONCE IV ; Start 07/15/16 at 11:03; Stop 07/15/16 at 11:04; Status DC Midazolam HCl (Versed 100mg/ 100ml Premix) 100 ml @ As Directed STK-MED ONCE IV ; Start 07/15/16 at 11:03; Stop 07/15/16 at 11:04; Status DC Iohexol (Omnipaque 300 Mg/ml) 112 ml 1X ONCE IART Last administered on 11:56; Start 07/15/16 at 12:00; Stop 07/15/16 at 12:01; Status DC Lidocaine HCl 10 ml 1X ONCE IJ Last administered on 07/15/16 11:57; Start at 12:00; Stop 07/15/16 at 12:01; Status DC Heparin Sodium/ Sodium Chloride 1000 unit 1,000 unit 1X ONCE IART ; Start 07/15 at 12:00; Stop 07/15/16 at 12:01; Status DC Sodium Chloride/ Magnesium Sulfate/ Calcium Gluconate/ Multivitamins/ Chromium/ Copper/ Manganese/Seleni/ Zn/Total Parenteral Nutrition/Amino Acids/Dextrose ( Sodium Chloride/ Infuvite Adult/ Multitrace-5 Conc/ Tpn - Tpn Fluid/ Trophamine / Dextrose 70%-Water Iv Soln) 1,512 ml @ 63 mls/hr TPN CONT IV Last administered on 07/15/16 21:27; Start 07/15/16 at 22:00; Stop 07/16/16 at 21:59 ; Status DC Iohexol (Omnipaque 300 Mg/ml) 75 ml 1X ONCE IV Last administered on 07/15/16 13:43; Start 07/15/16 at 13:15; Stop 07/15/16 at 13:16; Status DC Info (Do NOT chart on this entry -- for MONITORING) 1 each PRN DAILY PRN MC SEE COMMENTS; Start 07/15/16 at 13:15; Stop 07/17/16 at 13:14; Status DC Heparin Sodium (Porcine) 7000 unit 7,000 unit 1X ONCE IV Last administered on 07/15/16 15:27; Start 07/15/16 at 14:45; Stop 07/15/16 at 14:46; Status DC Heparin Sodium/ Dextrose 500 ml @ 0 mls/hr CONT PRN IV SEE I/O RECORD Last administered on 07/17/16 18:41; Start 07/15/16 at 14:30; Stop 07/18/16 at 10:21 ; Status DC Heparin Sodium (Porcine) 2,600 unit PRN Q6HRS PRN IV FOR UFH LEVEL LESS THAN 0.2; Start 07/15/16 at 14:30; Stop 07/18/16 at 10:21; Status DC Heparin Sodium (Porcine) 1,300 unit PRN Q6HRS PRN IV FOR UFH LEVEL 0.2 - 0.29; Start 07/15/16 at 14:30; Stop 07/18/16 at 10:21; Status DC Warfarin Sodium (Coumadin Per Pharmacy) 1 each PRN DAILY PRN MC PER PROTOCOL; Start 07/15/16 at 14:30; Stop 07/15/16 at 14:30; Status DC Sodium Bicarbonate 50 meq 50 meq 1X ONCE IV Last administered on 07/15/16 16: 30; Start 07/15/16 at 16:30; Stop 07/15/16 at 16:34; Status DC Alteplase, Recombinant (Activase) 100 ml @ 50 mls/hr 1X ONCE IV Last administered on 07/15/16 17:30; Start 07/15/16 at 17:30; Stop 07/15/16 at 19:29 ; Status DC Fentanyl Citrate (Fentanyl 2ml Vial) 25 mcg PRN Q1HR PRN IV COMM; Start at 22:30; Stop 07/16/16 at 07:17; Status DC Fentanyl Citrate (Fentanyl 2ml Vial) 50 mcg PRN Q1HR PRN IV COMM Last administered on 07/16/16 05:30; Start 07/15/16 at 22:30; Stop 07/16/16 at 07:17 ; Status DC Scopolamine (Transderm-Scop) 1 patch Q3DAYS TD Last administered on 07/21/16 08:30; Start 07/18/16 at 09:00 Scopolamine 1 patch 1 patch ONCE ONCE TD ; Start 07/15/16 at 23:30; Stop at 23:31; Status DC Sodium Chloride 1,000 ml @ 1,000 mls/hr 1X ONCE IV Last administered on 02:38; Start 07/16/16 at 01:00; Stop 07/16/16 at 01:59; Status DC Midazolam HCl 100 ml @ As Directed STK-MED ONCE IV ; Start 07/16/16 at 01:00; Stop 07/16/16 at 01:01; Status DC Midazolam HCl 100 ml @ 0 mls/hr CONT PRN IV SEE I/O RECORD Last administered on 07/19/16 07:52; Start 07/16/16 at 01:15 Vasopressin 40 unit/Dextrose 102 ml @ 6 mls/hr CONT PRN IV SEE I/O RECORD Last administered on 07/17/16 13:33; Start 07/16/16 at 05:00 Insulin Human Regular 150 unit/ Sodium Chloride 151.5 ml @ 0 mls/hr CONT PRN IV SEE I/O RECORD Last administered on 07/17/16 02:26; Start 07/16/16 at 05:00 ; Stop 07/17/16 at 10:10; Status DC Fentanyl Citrate (Fentanyl 600 Mcg/30 ml [employer]) 30 ml @ 0 mls/hr CONT PRN IV PROTOCOL Last administered on 07/19/16 06:15; Start 07/16/16 at 07:15 Vecuronium [place] (Norcuron Bolus) 10 mg STK-MED ONCE IV ; Start 07/15/16 at 11 :00; Stop 07/16/16 at 08:06; Status DC Fentanyl Citrate (Fentanyl 2ml Vial) 100 mcg STK-MED ONCE .ROUTE ; Start at 11:00; Stop 07/16/16 at 08:06; Status DC Midazolam HCl (Versed) 10 mg STK-MED ONCE .ROUTE ; Start 07/15/16 at 11:00; Stop 07/16/16 at 08:06; Status DC Dopamine HCl/ Dextrose 400 mg STK-MED ONCE IV ; Start 07/15/16 at 11:00; Stop at 08:06; Status DC Sodium Bicarbonate 50 meq STK-MED ONCE .ROUTE ; Start 07/15/16 at 11:00; Stop at 08:06; Status DC Hydrocortisone Sodium Succinate (Solu-Cortef) 100 mg Q8HRS IV Last administered on 07/19/16 05:50; Start 07/16/16 at 09:00; Stop 07/19/16 at 09:30 ; Status DC Sodium Polystyrene Sulfonate 30 gm 30 gm 1X ONCE PO Last administered on 08:41; Start 07/16/16 at 08:30; Stop 07/16/16 at 08:34; Status DC Albumin Human (Plasmanate) 500 ml @ 125 mls/hr PRN Q6HRS PRN IV for CVP < 10; MAP < 65 Last administered on 07/17/16 08:12; Start 07/16/16 at 08:30 Sodium Bicarbonate 50 meq 1X ONCE IV Last administered on 07/16/16 08:41; Start 07/16/16 at 08:45; Stop 07/16/16 at 08:46; Status DC Info (Anti-Coagulation Monitoring By Pharmacy) 1 each PRN DAILY PRN MC SEE COMMENTS; Start 07/16/16 at 08:45; Status Cancel Ipratropium [place] (Atrovent) 0.5 mg RTQID NEB Last administered on 07/23/16 07:39; Start 07/16/16 at 12:00 Lidocaine/Sodium Bicarbonate (Buffered Lidocaine 1%) 3 ml 1X ONCE IJ Last administered on 07/16/16 10:43; Start 07/16/16 at 09:15; Stop 07/16/16 at 09:16 ; Status DC Heparin Sodium/ Sodium Chloride 60 unit 1X ONCE IV Last administered on 10:44; Start 07/16/16 at 09:15; Stop 07/16/16 at 09:16; Status DC Heparin Sodium (Porcine) 2500 unit 2,500 unit 1X ONCE INT CAT Last administered on 07/16/16 10:44; Start 07/16/16 at 09:15; Stop 07/16/16 at 09:16 ; Status DC Sodium Chloride 40 meq/Sodium Acetate 40 meq/ Magnesium Sulfate 8 meq/Calcium Gluconate 5 meq/ Multivitamins 10 ml/Chromium/ Copper/Manganese/ Seleni/Zn 1 ml / Insulin Human Regular 10 unit/ Total Parenteral Nutrition/Amino Acids/Dextrose / Fat Emulsion Intravenous 1,512 ml @ 63 mls/hr TPN CONT IV Last administered on 07/16/16 21:53; Start 07/16/16 at 22:00; Stop 07/17/16 at 21:59 ; Status DC Pantoprazole Sodium 80 mg/ Sodium Chloride 100 ml @ 10 mls/hr Q10H IV Last administered on 07/21/16 10:10; Start 07/17/16 at 06:45; Stop 07/21/16 at 12:21 ; Status DC Sodium Acetate/ Potassium Acetate/ Magnesium Sulfate/ Calcium Gluconate/ Multivitamins/ Chromium/Copper/ Manganese/Seleni/ Zn/Insulin Human Regular/ Total Parenteral Nutrition/Amino Acids/Dextrose/ Fat Emulsion Intravenous ( Calcium Gluconate/ Infuvite Adult/ Multitrace-5 Conc/ Novolin R Vi... 1,512 ml @ 63 mls/hr TPN CONT IV Last administered on 07/17/16 21:49; Start 07/17/16 at 22:00; Stop 07/18/16 at 21:59; Status DC Insulin Detemir (Levemir) 25 units BID SQ Last administered on 07/17/16 20:51 ; Start 07/17/16 at 10:30; Stop 07/18/16 at 08:12; Status DC Insulin Aspart (Novolog) 0-9 UNITS TIDWMEALS SQ Last administered on 07/18/16 10:03; Start 07/17/16 at 12:00; Stop 07/18/16 at 11:55; Status DC Dextrose 12.5 gm PRN Q15MIN PRN IV SEE COMMENTS; Start 07/17/16 at 10:15; Status UNV Iohexol (Omnipaque 300 Mg/ml) 100 ml STK-MED ONCE .ROUTE ; Start 07/17/16 at 10: 45; Stop 07/17/16 at 10:46; Status DC Lidocaine/Sodium Bicarbonate 20 ml 20 ml STK-MED ONCE IJ ; Start 07/17/16 at 10: 45; Stop 07/17/16 at 10:46; Status DC Heparin Sodium/ Sodium Chloride 500 ml @ As Directed STK-MED ONCE .ROUTE ; Start 07/17/16 at 10:46; Stop 07/17/16 at 10:47; Status DC Heparin Sodium/ Sodium Chloride 1,000 unit 1X ONCE IART Last administered on 11:27; Start 07/17/16 at 11:15; Stop 07/17/16 at 11:26; Status DC Lidocaine/Sodium Bicarbonate (Buffered Lidocaine 1%) 3 ml 1X ONCE IJ Last administered on 07/17/16 11:15; Start 07/17/16 at 11:15; Stop 07/17/16 at 11:26 ; Status DC Iohexol (Omnipaque 300 Mg/ml) 40 ml 1X ONCE IART Last administered on 11:26; Start 07/17/16 at 11:15; Stop 07/17/16 at 11:26; Status DC Info (Do NOT chart on this entry -- for MONITORING) 1 each PRN DAILY PRN MC SEE COMMENTS; Start 07/17/16 at 11:30; Stop 07/19/16 at 11:29; Status DC Calcium Chloride 2,000 mg STK-MED ONCE IV ; Start 07/16/16 at 13:02; Stop at 13:03; Status DC Epinephrine HCl 4 mg STK-MED ONCE .ROUTE ; Start 07/16/16 at 13:02; Stop at 13:03; Status DC Furosemide 40 mg 40 mg 1X ONCE IVP Last administered on 07/17/16 16:45; Start 07/17/16 at 16:45; Stop 07/17/16 at 16:47; Status DC Propofol (Diprivan) 100 ml @ As Directed STK-MED ONCE IV ; Start 07/17/16 at 16 :36; Stop 07/17/16 at 16:37; Status DC Insulin Detemir (Levemir) 35 units BID SQ Last administered on 07/18/16 10:00 ; Start 07/18/16 at 09:00; Stop 07/18/16 at 11:55; Status DC Insulin Aspart (Novolog) 10 units Q6HRS SQ ; Start 07/18/16 at 12:00; Stop 07/18 at 12:00; Status DC Insulin Aspart 20 units 20 units 1X ONCE SQ Last administered on 07/18/16 10: 02; Start 07/18/16 at 08:15; Stop 07/18/16 at 11:56; Status DC Sodium Acetate/ Potassium Acetate/ Magnesium Sulfate/ Calcium Gluconate/ Multivitamins/ Chromium/Copper/ Manganese/Seleni/ Zn/Insulin Human Regular/ Total Parenteral Nutrition/Amino Acids/Dextrose/ Fat Emulsion Intravenous ( Calcium Gluconate/ Infuvite Adult/ Multitrace-5 Conc/ Novolin R Vi... 1,512 ml @ 63 mls/hr TPN CONT IV Last administered on 07/18/16 22:03; Start 07/18/16 at 22:00; Stop 07/19/16 at 21:59; Status DC Atropine Sulfate 0.5 mg 0.5 mg STK-MED ONCE .ROUTE ; Start 07/18/16 at 09:43; Stop 07/18/16 at 09:44; Status DC Insulin Human Regular/Sodium Chloride (Novolin R Vial/ Iv Normal Saline 150ml) 151.5 ml @ 0 mls/hr CONT PRN IV SEE I/O RECORD Last administered on 07/18/16 13:54; Start 07/18/16 at 11:45; Stop 07/19/16 at 10:27; Status DC Dextrose 12.5 gm 12.5 gm PRN Q15MIN PRN IV LOW BLOOD SUGAR; Start 07/18/16 at 11:45; Stop 07/19/16 at 10:53; Status DC Potassium Chloride (KCl Premix 20meq) 50 ml @ 25 mls/hr Q2H IV Last administered on 07/19/16 11:09; Start 07/19/16 at 09:30; Stop 07/19/16 at 13:29 ; Status DC Propofol (Diprivan) 1,000 mg STK-MED ONCE IV ; Start 07/17/16 at 16:36; Stop at 08:22; Status DC Atropine Sulfate 1 mg STK-MED ONCE .ROUTE ; Start 07/18/16 at 09:43; Stop at 08:53; Status DC Hydrocortisone Sodium Succinate (Solu-Cortef) 50 mg Q8HRS IV Last administered on 07/23/16 05:30; Start 07/19/16 at 14:00 Heparin Sodium (Porcine) 7400 unit 7,400 unit 1X ONCE IV Last administered on 07/19/16 10:03; Start 07/19/16 at 09:45; Stop 07/19/16 at 09:53; Status DC Heparin Sodium/ Dextrose 500 ml @ 0 mls/hr CONT PRN IV SEE I/O RECORD Last administered on 07/23/16 08:24; Start 07/19/16 at 09:45 Heparin Sodium (Porcine) 2,800 unit PRN Q6HRS PRN IV FOR UFH LEVEL LESS THAN 0.2; Start 07/19/16 at 09:45; Stop 07/23/16 at 08:12; Status DC Heparin Sodium (Porcine) 1,400 unit PRN Q6HRS PRN IV FOR UFH LEVEL 0.2 - 0.29 Last administered on 07/20/16 12:06; Start 07/19/16 at 09:45; Stop 07/23/16 at 08:12; Status DC Warfarin Sodium (Coumadin Per Pharmacy) 1 each PRN DAILY PRN MC PER PROTOCOL Last administered on 07/23/16 09:50; Start 07/19/16 at 09:45 Insulin Aspart (Novolog) 0-5 UNITS TIDWMEALS SQ Last administered on 07/19/16 12:02; Start 07/19/16 at 12:00; Stop 07/19/16 at 16:45; Status DC Dextrose 12.5 gm 12.5 gm PRN Q15MIN PRN IV SEE COMMENTS; Start 07/19/16 at 10: 30 Potassium Acetate/ Magnesium Sulfate/ Calcium Gluconate/ Multivitamins/ Chromium /Copper/ Manganese/Seleni/ Zn/Insulin Human Regular/Total Parenteral Nutrition/ Amino Acids/Dextrose/ Fat Emulsion Intravenous (Calcium Gluconate/ Infuvite Adult/ Multitrace-5 Conc/ Novolin R Vial/ Tpn - Tpn Flu... 1,200 ml @ 50 mls/ hr TPN CONT IV ; Start 07/19/16 at 22:00; Stop 07/19/16 at 22:00; Status DC Insulin Aspart (Novolog) 0-5 UNITS Q6HRS SQ Last administered on 07/21/16 12: 04; Start 07/19/16 at 18:00; Stop 07/21/16 at 12:34; Status DC Warfarin Sodium (Coumadin) 4 mg 1X WARF ONCE PO Last administered on 17:26; Start 07/19/16 at 17:02; Stop 07/19/16 at 17:03; Status DC Fentanyl Citrate (Fentanyl 2ml Vial) 50 mcg PRN Q2HR PRN IV PAIN Last administered on 07/22/16 03:15; Start 07/20/16 at 02:45; Stop 07/22/16 at 04:45 ; Status DC Warfarin Sodium (Coumadin) 5 mg 1X WARF ONCE PO Last administered on 17:09; Start 07/20/16 at 16:00; Stop 07/20/16 at 16:01; Status DC Midazolam HCl 1 mg 1 mg PRN Q1HR PRN IV sedation on vent; Start 07/20/16 at 11: 15; Stop 07/22/16 at 04:46; Status DC Sodium Chloride (Iv Sodium Chloride 0.9% 1000ml Bag) 1,000 ml @ 75 mls/hr [id number] IV Last administered on 07/23/16 05:31; Start 07/20/16 at 11:15 Midazolam HCl (Versed) 2 mg PRN Q1HR PRN IV sedation on vent; Start 07/20/16 at 11:15; Stop 07/22/16 at 04:47; Status DC Midazolam HCl (Versed) 3 mg PRN Q1HR PRN IV sedation on vent; Start 07/20/16 at 11:15; Stop 07/22/16 at 04:47; Status DC Midazolam HCl (Versed) 4 mg PRN Q1HR PRN IV sedation on vent Last administered on 07/22/16 04:32; Start 07/20/16 at 11:15; Stop 07/22/16 at 04:47; Status DC Insulin Detemir (Levemir) 15 units QHS SQ Last administered on 07/20/16 20:47 ; Start 07/20/16 at 21:00; Stop 07/21/16 at 12:34; Status DC Warfarin Sodium (Coumadin) 5 mg 1X WARF ONCE PO Last administered on 15:37; Start 07/21/16 at 16:00; Stop 07/21/16 at 16:01; Status DC Pantoprazole Sodium (Protonix Vial) 40 mg DAILYAC IVP Last administered on 07/22 07:41; Start 07/22/16 at 07:30; Stop 07/23/16 at 04:47; Status DC Insulin Detemir (Levemir) 25 units QHS SQ Last administered on 07/22/16 20:59 ; Start 07/21/16 at 21:00 Docusate Sodium (Colace) 100 mg BID PO Last administered on 07/22/16 20:54; Start 07/21/16 at 21:00 Insulin Aspart (Novolog) 0-9 UNITS Q6HRS SQ Last administered on 07/22/16 17: 39; Start 07/21/16 at 13:00 Fentanyl Citrate (Fentanyl 2ml Vial) 100 mcg STK-MED ONCE .ROUTE ; Start at 22:18; Stop 07/21/16 at 22:19; Status DC Midazolam HCl (Versed) 2 mg STK-MED ONCE .ROUTE ; Start 07/21/16 at 23:45; Stop 07/21/16 at 23:46; Status DC Fentanyl Citrate (Fentanyl 2ml Vial) 100 mcg STK-MED ONCE .ROUTE ; Start at 00:36; Stop 07/22/16 at 00:37; Status DC Midazolam HCl (Versed) 2 mg STK-MED ONCE .ROUTE ; Start 07/22/16 at 00:57; Stop 07/22/16 at 00:58; Status DC Midazolam HCl (Versed) 2 mg STK-MED ONCE .ROUTE ; Start 07/22/16 at 02:06; Stop 07/22/16 at 02:07; Status DC Midazolam HCl (Versed) 2 mg STK-MED ONCE .ROUTE ; Start 07/22/16 at 03:13; Stop 07/22/16 at 03:14; Status DC Fentanyl Citrate (Fentanyl 2ml Vial) 100 mcg STK-MED ONCE .ROUTE ; Start at 03:14; Stop 07/22/16 at 03:15; Status DC Midazolam HCl (Versed) 2 mg STK-MED ONCE .ROUTE ; Start 07/22/16 at 04:29; Stop 07/22/16 at 04:30; Status DC Fentanyl Citrate (Fentanyl 2ml Vial) 50 mcg PRN Q2HR PRN IV SEVERE PAIN Last administered on 07/23/16 01:23; Start 07/22/16 at 04:45 Midazolam HCl (Versed) 1 mg PRN Q1HR PRN IV sedation on vent; Start 07/22/16 at 04:46 Midazolam HCl (Versed) 2 mg PRN Q1HR PRN IV sedation on vent Last administered on 07/22/16 07:42; Start 07/22/16 at 04:47 Midazolam HCl (Versed) 3 mg PRN Q1HR PRN IV sedation on vent; Start 07/22/16 at 04:47 Midazolam HCl (Versed) 4 mg PRN Q1HR PRN IV sedation on vent Last administered on 07/22/16 05:33; Start 07/22/16 at 04:47 Warfarin Sodium (Coumadin) 7.5 mg 1X WARF ONCE PO Last administered on 17:38; Start 07/22/16 at 16:00; Stop 07/22/16 at 16:01; Status DC Metoprolol Tartrate (Lopressor) 5 mg Q6HRS IVP Last administered on 07/23/16 05:30; Start 07/22/16 at 12:30 Atorvastatin Calcium (Lipitor) 40 mg STK-MED ONCE .ROUTE ; Start 07/22/16 at 20: 37; Stop 07/22/16 at 20:38; Status DC Diphenhydramine HCl (Benadryl) 25 mg PRN Q6HRS PRN IVP ANAPHYLAXIS; Start 07/23 at 04:47 Pantoprazole Sodium (Protonix Vial) 40 mg DAILYAC IVP Last administered on 07/23 08:22; Start 07/23/16 at 04:47 Heparin Sodium (Porcine) 3,100 unit PRN Q6HRS PRN IV FOR UFH LEVEL LESS THAN 0.2; Start 07/23/16 at 08:15 Heparin Sodium (Porcine) 1,600 unit PRN Q6HRS PRN IV FOR UFH LEVEL 0.2 - 0.29 Last administered on 07/23/16 08:26; Start 07/23/16 at 08:15 Warfarin Sodium (Coumadin) 7.5 mg 1X WARF ONCE PO ; Start 07/23/16 at 16:00; Stop 07/23/16 at 16:01 Active Scripts Active Levemir Flextouch (Insulin Detemir) 100 Unit/1 Ml Insuln.pen 20 Units SQ QHS 30 Days Novolog Flexpen (Insulin Aspart) 100 Unit/1 Ml Insuln.pen 10 Units SQ TIDAC 30 Days Reported Advair 100-50 Diskus (Fluticasone/Salmeterol) 1 Each Disk.w.dev 1 Puff IH BID Spiriva Respimat (Tiotropium [place]) 4 Gm Mist.inhal 2.5 Gm IH DAILY Symbicort 160-4.5 Mcg Inhaler (Budesonide/Formoterol Fumarate) 10.2 Gm Hfa.aer.ad 2 Puff IH BID Atorvastatin Calcium 20 Mg Tablet 20 Mg PO HS Lisinopril-Hctz 10-12.5 Mg Tab (Lisinopril/Hydrochlorothiazide) 1 Each Tablet 1 Tab PO DAILY Isosorbide Mononitrate Er (Isosorbide Mononitrate) 120 Mg Tab.er.24h 120 Mg PO DAILY Novolin N (Nph, Human Insulin Isophane) 100 Unit/1 Ml Vial 0 SQ Promethazine-Codeine Syrup (Promethazine Hcl/Codeine) 118 Ml Syrup 5 Ml PO Q4- 6HRS Diltiazem 24HR Cd (Diltiazem Hcl) 240 Mg Cap.er.24h 240 Mg PO DAILY NITROGLYCERIN SubLingual (Nitroglycerin) 0.4 Mg Tab.subl 0.4 Mg SL PRN Q5MIN PRN Atorvastatin Calcium 40 Mg Tablet 40 Mg PO HS Vitals/I & O Vital Sign - Last 24 Hours 07/22/16 07/22/16 07/22/16 07/22/16 11:00 11:13 12:00 12:00 Temp 98.0 98.0 Pulse 100 98 Resp 24 25 B/P 162/81 183/87 Pulse Ox 98 98 99 O2 Delivery Venturi Mask Venturi Mask Venturi Mask Venturi Mask 07/22/16 07/22/16 07/22/16 07/22/16 12:36 13:00 14:00 14:37 Pulse 95 85 92 89 Resp 24 B/P 182/111 165/81 192/88 190/88 Pulse Ox 100 99 O2 Delivery Venturi Mask Venturi Mask 07/22/16 07/22/16 07/22/16 07/22/16 15:00 16:00 16:00 16:28 Temp 98.2 98.2 Pulse 88 88 Resp 24 B/P 155/74 163/83 Pulse Ox 98 100 O2 Delivery Venturi Mask Venturi Mask Venturi Mask Venturi Mask 07/22/16 07/22/16 07/22/16 07/22/16 17:00 17:38 18:00 19:00 Pulse 76 87 66 76 Resp 25 24 25 B/P 178/81 178/81 171/87 184/81 Pulse Ox 100 99 98 O2 Delivery Venturi Mask Venturi Mask Venturi Mask 07/22/16 07/22/16 07/22/16 07/22/16 19:47 20:00 20:00 20:54 Temp 98.1 98.1 Pulse 82 81 Resp 23 B/P 182/68 182/68 Pulse Ox 97 97 O2 Delivery Venturi Mask Venturi Mask Venturi Mask O2 Flow Rate 12.0 07/22/16 07/22/16 07/22/16 07/23/16 21:00 22:00 23:00 00:00 Pulse 74 86 98 Resp 21 22 25 B/P 179/75 157/73 181/100 Pulse Ox 100 98 96 O2 Delivery Venturi Mask Venturi Mask Venturi Mask Venturi Mask 07/23/16 07/23/16 07/23/16 07/23/16 00:00 00:15 01:00 01:23 Temp 98.0 98.0 Pulse 92 88 74 Resp 24 20 21 B/P 179/88 181/100 189/89 Pulse Ox 97 100 100 O2 Delivery Venturi Mask Venturi Mask Venturi Mask 07/23/16 07/23/16 07/23/16 07/23/16 01:58 02:00 02:34 03:00 Pulse 75 82 86 Resp 16 24 22 B/P 156/64 200/93 166/74 Pulse Ox 100 100 100 O2 Delivery Venturi Mask Venturi Mask Venturi Mask 07/23/16 07/23/16 07/23/16 07/23/16 04:00 04:00 05:00 05:30 Temp 98.6 98.6 Pulse 85 74 75 Resp 19 19 B/P 191/86 168/98 192/93 Pulse Ox 100 100 O2 Delivery Nasal Cannula Nasal Cannula Nasal Cannula O2 Flow Rate 5.0 5.0 5.0 07/23/16 07/23/16 07/23/16 06:00 06:34 07:40 Pulse 76 86 Resp 20 B/P 174/88 175/96 Pulse Ox 100 99 O2 Delivery Nasal Cannula Venturi Mask O2 Flow Rate 4.0 3.5 Intake and Output 07/22/16 07/22/16 07/23/16 15:00 23:00 07:00 Intake Total 0 ml 3695 ml Output Total 390 ml 735 ml 600 ml Balance -390 ml -735 ml 3095 ml JUHI FRANCIS III DO Jul 23, 2016 10:35
--- NOTE | 2016-07-23 11:49 | PDOC ---
Renal-Progress Notes Subjective Notes Notes NONE History of Present Illness Hx of present illness NO CHANGE Vitals Vitals Vital Signs Date Time Temp Pulse Resp B/P Pulse Ox O2 Delivery O2 Flow Rate FiO2 07/23/16 09:00 84 27 156/79 100 Nasal Cannula 4.0 07/23/16 08:00 98.3 98.3 Weight Weight [ ] I.O. Intake and Output Intake and Output 07/23/16 07:00 Intake Total 3695 ml Output Total 1725 ml Balance 1970 ml IV Total 2368 ml Tube Feeding 972 ml Other 355 ml Output Urine Total 1725 ml Gastric Drainage Total 0 ml # Bowel Movements 1 Labs Labs Laboratory Tests Test 07/22/16 17:36 07/22/16 20:56 07/23/16 00:16 07/23/16 05:31 Glucose (Fingerstick) 244mg/dL (70-99) 202mg/dL (70-99) 176mg/dL (70-99) 130mg/dL (70-99) Test 07/23/16 05:40 White Blood Count 18.0x10^3/uL (4.0-11.0) Red Blood Count 3.86x10^6/uL (4.30-5.70) Hemoglobin 10.9g/dL (13.0-17.5) Hematocrit 33.6% (39.0-53.0) Mean Corpuscular Volume 87fL (79-100) Mean Corpuscular Hemoglobin 28pg (25-35) Mean Corpuscular Hemoglobin Concent 33g/dL (31-37) Red Cell Distribution Width 14.7% (11.5-14.5) Platelet Count 202x10^3/uL (140-400) Neutrophils (%) (Auto) 85% (31-73) Lymphocytes (%) (Auto) 5% (24-48) Monocytes (%) (Auto) 9% (0-9) Eosinophils (%) (Auto) 0% (0-3) Basophils (%) (Auto) 0% (0-3) Neutrophils # (Auto) 15.3x10^3uL (1.8-7.7) Lymphocytes # (Auto) 0.9x10^3/uL (1.0-4.8) Monocytes # (Auto) 1.6x10^3/uL (0.0-1.1) Eosinophils # (Auto) 0.0x10^3/uL (0.0-0.7) Basophils # (Auto) 0.1x10^3/uL (0.0-0.2) Segmented Neutrophils % 88% (35-66) Lymphocytes % 5% (24-48) Monocytes % 6% (0-10) Metamyelocytes % 1% (0-0) Platelet Estimate Adequate (ADEQUATE) Prothrombin Time 17.6SEC (11.7-14.0) Prothromb Time International Ratio 1.5 (0.8-1.1) Heparin Anti-Xa Act, Unfractionated 0.26IU/mL (0.30-0.70) Sodium Level 154mmol/L (136-145) Potassium Level 3.4mmol/L (3.5-5.1) Chloride Level 115mmol/L (98-107) Carbon Dioxide Level 30mmol/L (21-32) Anion Gap 9 (6-14) Blood Urea Nitrogen 44mg/dL (8-26) Creatinine 1.0mg/dL (0.7-1.3) Estimated GFR (Cockcroft-Gault) 88.6 Glucose Level 139mg/dL (70-99) Calcium Level 8.3mg/dL (8.5-10.1) Micro Micro Microbiology 07/15/16 Blood Culture - Final, Complete NO GROWTH AFTER 5 DAYS 07/14/16 Urine Culture - Final, Complete 07/14/16 Urine Culture Result 1 (MARÍA) - Final, Complete 07/14/16 Urine Culture Result 2 (MARÍA) - Final, Complete 07/14/16 Antimicrobic Susceptibility - Final, Complete Review of Systems Constitutional: yes: no symptom reported Physical Exam General Appearance: no apparent distress Respiratory: decreased breath sounds Heart: S1S2 Abdomen: soft, bowel sounds present Genitourinary: bladder flat Extremities: pulses present Neurology: other (SEDATED) Assessment Assessment IMP BASIM-BETTER TODAY WITH CR DOWN TO 1.0 RESP FAILURE ANGIOEDEMA MILD HYPOKALEMIA MILD HYPERNATREMIA PE ANEMIA PLAN NOT TOLERATING TF CHANGE IVF TO PPN FOR NOW SUPPORTIVE CARE WILL FOLLOW ERIKA IBARRA MD Jul 23, 2016 11:49
[2016-07-23] MEDS: POTASSIUM CHLORIDE 20MEQ 50 ML IV SCH ×2 (12:17→13:39)
[2016-07-23] MEDS: AA 4.25%/CALCIUM/LYTES/D5W 1,000 ML IV SCH (14:57)
[2016-07-23] MEDS ORDERED: WARFARIN 7.5 MG TABLET. PO ONE (16:00)
[2016-07-23] MEDS ORDERED: ATORVASTATIN CALCIUM 40 MG TABLET. ONE (20:33)
[2016-07-23] MEDS: ATORVASTATIN CALCIUM 40 MG TABLET. PO SCH (20:45)
[2016-07-23] MEDS: INSULIN DETEMIR 300 UNITS/3 ML INSULN.PEN. SQ SCH (20:47)
[2016-07-24] VITALS (24 sets, daily range): BP systolic 153–201; BP diastolic 71–117
[2016-07-24] MEDS: hydrALAZINE 20 MG/ML VIAL. IVP PRN ×3 (02:30→21:25)
[2016-07-24] MEDS: AA 4.25%/CALCIUM/LYTES/D5W 1,000 ML IV SCH ×2 (02:31→19:05)
[2016-07-24] MEDS: HEPARIN 25,000UTS/500ML PREMIX 500 ML IV PRN (04:44)
[2016-07-24] MEDS: ALBUTEROL SULFATE 2.5 MG/3 ML NEBU. NEB PRN (05:20)
[2016-07-24] MEDS: HYDROCORTISONE SOD SUCC/PF 100 MG/2 ML VIAL. IV SCH ×2 (05:27→21:20)
[2016-07-24] MEDS: METOPROLOL TARTRATE 5 MG/5 ML VIAL. IVP SCH ×4 (05:27→23:44)
[2016-07-24] MEDS: INSULIN ASPART 300 UNITS/3 ML INSULN.PEN SQ SCH ×4 (05:28→23:43)
[2016-07-24 05:42] LABS: BASO # 0.1 x10^3/uL (0.0-0.2); BASO % 0 % (0-3); EOS % 0 % (0-3); HEMATOCRIT 30.7 % (39.0-53.0); HEMOGLOBIN 9.7 g/dL (13.0-17.5); LYMPH # 0.9 x10^3/uL (1.0-4.8); LYMPH % 5 % (24-48); MEAN CORPUSCULAR HEMOGLOBIN 28 pg (25-35); MEAN CORPUSCULAR HGB CONC 32 g/dL (31-37); MEAN CORPUSCULAR VOLUME 89 fL (79-100); MONO % 10 % (0-9); NEUT % 85 % (31-73); PLATELET COUNT 201 x10^3/uL (140-400); RED BLOOD COUNT 3.45 x10^6/uL (4.30-5.70); RED CELL DISTRIBUTION WIDTH 15.2 % (11.5-14.5); WHITE BLOOD COUNT 18.7 x10^3/uL (4.0-11.0)
[2016-07-24 05:57] LABS: CALCIUM 8.6 mg/dL (8.5-10.1); GFR 88.6; POTASSIUM 3.9 mmol/L (3.5-5.1)
[2016-07-24] MEDS: FENTANYL PF 100 MCG/2 ML VIAL. IV PRN (07:27)
[2016-07-24] MEDS: PANTOPRAZOLE IV PUSH 40 MG VIAL. IVP SCH (07:59)
[2016-07-24] MEDS: MUPIROCIN 2 % NASAL OINTMENT 22GM TUBE. NS SCH ×2 (07:59→21:20)
[2016-07-24] MEDS: SCOPOLAMINE 1.5MG PATCH. TD SCH (07:59)
[2016-07-24] MEDS: DOCUSATE SODIUM 100 MG CAPSULE. PO SCH ×2 (08:00→19:59)
[2016-07-24] MEDS: IPRATROPIUM BROMIDE 0.5 MG/2.5 ML NEBU. NEB SCH ×4 (08:02→20:10)
[2016-07-24 09:15] LABS: INR 2.1 (0.8-1.1); PROTHROMBIN TIME PATIENT 22.4 SEC (11.7-14.0)
[2016-07-24] MEDS: FENTANYL STANDARD PCA 30 ML IV PRN ×2 (09:45→15:16)
--- NOTE | 2016-07-24 10:03 | PDOC ---
PULMONARY PROGRESS NOTES Subjective EXTUBATEd 07/22 NO INCREASE SOA WANTS TO DRINK Vitals Vital Signs Date Time Temp Pulse Resp B/P Pulse Ox O2 Delivery O2 Flow Rate FiO2 07/24/16 09:45 18 100 Nasal Cannula 4.0 07/24/16 06:00 69 170/76 07/24/16 04:00 98.7 98.7 General: Alert HEENT: Other (nc at orally intubated, nose clear, ) Lungs: Other (decrease bs) Cardiovascular: S1, S2 Abdomen: Soft, Non-tender, Other (no groin tenderness) Neuro Exam: Alert Extremities: Other (trace edema) Skin: Warm Labs Laboratory Tests Test 07/22/16 11:44 07/22/16 17:36 07/22/16 20:56 07/23/16 00:16 Glucose (Fingerstick) 315mg/dL (70-99) 244mg/dL (70-99) 202mg/dL (70-99) 176mg/dL (70-99) Test 07/23/16 05:31 07/23/16 05:40 07/23/16 12:54 07/23/16 14:45 Glucose (Fingerstick) 130mg/dL (70-99) 190mg/dL (70-99) White Blood Count 18.0x10^3/uL (4.0-11.0) Red Blood Count 3.86x10^6/uL (4.30-5.70) Hemoglobin 10.9g/dL (13.0-17.5) Hematocrit 33.6% (39.0-53.0) Mean Corpuscular Volume 87fL (79-100) Mean Corpuscular Hemoglobin 28pg (25-35) Mean Corpuscular Hemoglobin Concent 33g/dL (31-37) Red Cell Distribution Width 14.7% (11.5-14.5) Platelet Count 202x10^3/uL (140-400) Neutrophils (%) (Auto) 85% (31-73) Lymphocytes (%) (Auto) 5% (24-48) Monocytes (%) (Auto) 9% (0-9) Eosinophils (%) (Auto) 0% (0-3) Basophils (%) (Auto) 0% (0-3) Neutrophils # (Auto) 15.3x10^3uL (1.8-7.7) Lymphocytes # (Auto) 0.9x10^3/uL (1.0-4.8) Monocytes # (Auto) 1.6x10^3/uL (0.0-1.1) Eosinophils # (Auto) 0.0x10^3/uL (0.0-0.7) Basophils # (Auto) 0.1x10^3/uL (0.0-0.2) Segmented Neutrophils % 88% (35-66) Lymphocytes % 5% (24-48) Monocytes % 6% (0-10) Metamyelocytes % 1% (0-0) Platelet Estimate Adequate (ADEQUATE) Prothrombin Time 17.6SEC (11.7-14.0) Prothromb Time International Ratio 1.5 (0.8-1.1) Heparin Anti-Xa Act, Unfractionated 0.26IU/mL (0.30-0.70) 0.50IU/mL (0.30-0.70) Sodium Level 154mmol/L (136-145) Potassium Level 3.4mmol/L (3.5-5.1) Chloride Level 115mmol/L (98-107) Carbon Dioxide Level 30mmol/L (21-32) Anion Gap 9 (6-14) Blood Urea Nitrogen 44mg/dL (8-26) Creatinine 1.0mg/dL (0.7-1.3) Estimated GFR (Cockcroft-Gault) 88.6 Glucose Level 139mg/dL (70-99) Calcium Level 8.3mg/dL (8.5-10.1) Test 07/23/16 18:15 07/23/16 20:38 07/23/16 20:40 07/24/16 05:21 Glucose (Fingerstick) 182mg/dL (70-99) 277mg/dL (70-99) 204mg/dL (70-99) Heparin Anti-Xa Act, Unfractionated 0.51IU/mL (0.30-0.70) Test 07/24/16 05:25 White Blood Count 18.7x10^3/uL (4.0-11.0) Red Blood Count 3.45x10^6/uL (4.30-5.70) Hemoglobin 9.7g/dL (13.0-17.5) Hematocrit 30.7% (39.0-53.0) Mean Corpuscular Volume 89fL (79-100) Mean Corpuscular Hemoglobin 28pg (25-35) Mean Corpuscular Hemoglobin Concent 32g/dL (31-37) Red Cell Distribution Width 15.2% (11.5-14.5) Platelet Count 201x10^3/uL (140-400) Neutrophils (%) (Auto) 85% (31-73) Lymphocytes (%) (Auto) 5% (24-48) Monocytes (%) (Auto) 10% (0-9) Eosinophils (%) (Auto) 0% (0-3) Basophils (%) (Auto) 0% (0-3) Neutrophils # (Auto) 15.8x10^3uL (1.8-7.7) Lymphocytes # (Auto) 0.9x10^3/uL (1.0-4.8) Monocytes # (Auto) 1.9x10^3/uL (0.0-1.1) Eosinophils # (Auto) 0.0x10^3/uL (0.0-0.7) Basophils # (Auto) 0.1x10^3/uL (0.0-0.2) Prothrombin Time 22.4SEC (11.7-14.0) Prothromb Time International Ratio 2.1 (0.8-1.1) Heparin Anti-Xa Act, Unfractionated 0.42IU/mL (0.30-0.70) Sodium Level 150mmol/L (136-145) Potassium Level 3.9mmol/L (3.5-5.1) Chloride Level 114mmol/L (98-107) Carbon Dioxide Level 28mmol/L (21-32) Anion Gap 8 (6-14) Blood Urea Nitrogen 45mg/dL (8-26) Creatinine 1.0mg/dL (0.7-1.3) Estimated GFR (Cockcroft-Gault) 88.6 Glucose Level 237mg/dL (70-99) Calcium Level 8.6mg/dL (8.5-10.1) Laboratory Tests Test 07/23/16 12:54 07/23/16 14:45 07/23/16 18:15 07/23/16 20:38 Glucose (Fingerstick) 190mg/dL (70-99) 182mg/dL (70-99) 277mg/dL (70-99) Heparin Anti-Xa Act, Unfractionated 0.50IU/mL (0.30-0.70) Test 07/23/16 20:40 07/24/16 05:21 07/24/16 05:25 Heparin Anti-Xa Act, Unfractionated 0.51IU/mL (0.30-0.70) 0.42IU/mL (0.30-0.70) Glucose (Fingerstick) 204mg/dL (70-99) White Blood Count 18.7x10^3/uL (4.0-11.0) Red Blood Count 3.45x10^6/uL (4.30-5.70) Hemoglobin 9.7g/dL (13.0-17.5) Hematocrit 30.7% (39.0-53.0) Mean Corpuscular Volume 89fL (79-100) Mean Corpuscular Hemoglobin 28pg (25-35) Mean Corpuscular Hemoglobin Concent 32g/dL (31-37) Red Cell Distribution Width 15.2% (11.5-14.5) Platelet Count 201x10^3/uL (140-400) Neutrophils (%) (Auto) 85% (31-73) Lymphocytes (%) (Auto) 5% (24-48) Monocytes (%) (Auto) 10% (0-9) Eosinophils (%) (Auto) 0% (0-3) Basophils (%) (Auto) 0% (0-3) Neutrophils # (Auto) 15.8x10^3uL (1.8-7.7) Lymphocytes # (Auto) 0.9x10^3/uL (1.0-4.8) Monocytes # (Auto) 1.9x10^3/uL (0.0-1.1) Eosinophils # (Auto) 0.0x10^3/uL (0.0-0.7) Basophils # (Auto) 0.1x10^3/uL (0.0-0.2) Prothrombin Time 22.4SEC (11.7-14.0) Prothromb Time International Ratio 2.1 (0.8-1.1) Sodium Level 150mmol/L (136-145) Potassium Level 3.9mmol/L (3.5-5.1) Chloride Level 114mmol/L (98-107) Carbon Dioxide Level 28mmol/L (21-32) Anion Gap 8 (6-14) Blood Urea Nitrogen 45mg/dL (8-26) Creatinine 1.0mg/dL (0.7-1.3) Estimated GFR (Cockcroft-Gault) 88.6 Glucose Level 237mg/dL (70-99) Calcium Level 8.6mg/dL (8.5-10.1) Medications Active Scripts Medications Dose Route/Sig Days Date Category Advair 100-50 Diskus (Fluticasone/Salmeterol) 1 Each Disk.w.dev 1 Puff IH BID 06/21/16 Reported Spiriva Respimat (Tiotropium [place]) 4 Gm Mist.inhal 2.5 Gm IH DAILY 06/21/16 Reported Symbicort 160-4.5 Mcg Inhaler (Budesonide/Formoterol Fumarate) 10.2 Gm Hfa.aer.ad 2 Puff IH BID 06/21/16 Reported Atorvastatin Calcium 20 Mg Tablet 20 Mg PO HS 06/21/16 Reported Lisinopril-Hctz 10-12.5 Mg Tab (Lisinopril/Hydrochlorothiazide) 1 Each Tablet 1 Tab PO DAILY 06/21/16 Reported Isosorbide Mononitrate Er (Isosorbide Mononitrate) 120 Mg Tab.er.24h 120 Mg PO DAILY 06/21/16 Reported Levemir Flextouch (Insulin Detemir) 100 Unit/1 Ml Insuln.pen 20 Units SQ QHS 30 11/24/15 Rx Novolog Flexpen (Insulin Aspart) 100 Unit/1 Ml Insuln.pen 10 Units SQ TIDAC 30 11/24/15 Rx Novolin N (Nph, Human Insulin Isophane) 100 Unit/1 Ml Vial 0 SQ 11/18/15 Reported Promethazine-Codeine Syrup (Promethazine Hcl/Codeine) 118 Ml Syrup 5 Ml PO Q4-6HRS 11/18/15 Reported Diltiazem 24HR Cd (Diltiazem Hcl) 240 Mg Cap.er.24h 240 Mg PO DAILY 11/18/15 Reported NITROGLYCERIN SubLingual (Nitroglycerin) 0.4 Mg Tab.subl 0.4 Mg SL PRN Q5MIN PRN 11/18/15 Reported Atorvastatin Calcium 40 Mg Tablet 40 Mg PO HS 11/18/[address] reviewed, 1. Widespread multifocal bilateral segmental pulmonary embolism, with nonocclusive lobar embolism involving the right lower and middle lobes. 2. Diffuse tree-in-bud opacification suggestive of acute bronchiolitis. Findings are less confluence than on the prior examination, but now involve the lower lobes. 3. Right heart enlargement with straightening of the interventricular septum possibly due to pulmonary hypertension. Correlate clinically and consider echocardiography if warranted. 4. Short segment high-grade stricture and/or focal obliteration of the right upper lobe bronchus. No adjacent mass or evidence of extrinsic compression. This is stable. CXR REVIEWED Impression . 1. Acute respiratory failure secondary to angioedema, self extubated 07/14, reintubated 07/15, s/p cardiopulmonary arrest, Acute extensive PE, DVT, s/p TPA 2. Acute extensive PE with shock, DVT, s/p TPA, off pressors 2. Lisinopril induced angioedema. resolved 3. Chronic obstructive pulmonary disease. 4. Hypertension. 5. Coronary artery disease. s/p emergent cath.no sig disease 6. BASIM, improving 7. anemia,improved, off AC Plan . NEEDS REHAB WILL D/C CM D/W RN AND RT WILL CONTINUE THE SAME TUBE FEEDING FOR NOW DYSPHAGIA REPEAT CXR TAPER STEROIDS ANTICOAGULATION DOUGIE GARCIA MD Jul 24, 2016 10:03
--- NOTE | 2016-07-24 11:18 | PDOC ---
PROGRESS NOTES Chief Complaint Chief Complaint Angioedema - angioedema, likely 2/2 to ACEI; self extubated 07/14/16 - resolved - s/p CP arrest (PEA) sec to Multiple bilateral PE (07/15) - Non-occlusive thrombus, R leg (07/15) - COPD exacerbation - Low TSH levels in a critically ill patient - DM2; insulin requiring - Oliguric Hyperkalemic renal failure - Metabolic acidosis s/p arrest - Dyslipidemia on statin - Hypotensive shock, resolved and off pressors - Acute respiratory failure - intubated again (07/15) secondary to code blue ( PEA # 2) History of Present Illness History of Present Illness Pt seen and evaluated in the ICU this AM. Patient sitting upright in chair. No overt signs of respiratory distress, currently on 3L O2 NC saturating at 100%. Discussed case and plan with RN. Patient pending speech/swallow evaluation. Vitals Vitals Vital Signs Date Time Temp Pulse Resp B/P Pulse Ox O2 Delivery O2 Flow Rate FiO2 07/24/16 09:45 18 100 Nasal Cannula 4.0 07/24/16 06:00 69 170/76 07/24/16 04:00 98.7 98.7 Physical Exam Physical Exam eyes- bilateral periorbital / subconjunctival edema General: Alert, Cooperative, No acute distress Heart: Regular rate, Normal S1, Normal S2, No murmurs, Gallops Lungs: Other (decreased breath sounds bilaterally. ) Abdomen: Normal bowel sounds, Soft, No tenderness, No hepatosplenomegaly, No masses Extremities: No clubbing, No cyanosis, No edema, Normal pulses, No tenderness/ swelling Skin: No rashes, Other (dry mucosal membranes ) Labs LABS Laboratory Tests Test 07/23/16 12:54 07/23/16 14:45 07/23/16 18:15 07/23/16 20:38 Glucose (Fingerstick) 190mg/dL (70-99) 182mg/dL (70-99) 277mg/dL (70-99) Heparin Anti-Xa Act, Unfractionated 0.50IU/mL (0.30-0.70) Test 07/23/16 20:40 07/24/16 05:21 07/24/16 05:25 Heparin Anti-Xa Act, Unfractionated 0.51IU/mL (0.30-0.70) 0.42IU/mL (0.30-0.70) Glucose (Fingerstick) 204mg/dL (70-99) White Blood Count 18.7x10^3/uL (4.0-11.0) Red Blood Count 3.45x10^6/uL (4.30-5.70) Hemoglobin 9.7g/dL (13.0-17.5) Hematocrit 30.7% (39.0-53.0) Mean Corpuscular Volume 89fL (79-100) Mean Corpuscular Hemoglobin 28pg (25-35) Mean Corpuscular Hemoglobin Concent 32g/dL (31-37) Red Cell Distribution Width 15.2% (11.5-14.5) Platelet Count 201x10^3/uL (140-400) Neutrophils (%) (Auto) 85% (31-73) Lymphocytes (%) (Auto) 5% (24-48) Monocytes (%) (Auto) 10% (0-9) Eosinophils (%) (Auto) 0% (0-3) Basophils (%) (Auto) 0% (0-3) Neutrophils # (Auto) 15.8x10^3uL (1.8-7.7) Lymphocytes # (Auto) 0.9x10^3/uL (1.0-4.8) Monocytes # (Auto) 1.9x10^3/uL (0.0-1.1) Eosinophils # (Auto) 0.0x10^3/uL (0.0-0.7) Basophils # (Auto) 0.1x10^3/uL (0.0-0.2) Prothrombin Time 22.4SEC (11.7-14.0) Prothromb Time International Ratio 2.1 (0.8-1.1) Sodium Level 150mmol/L (136-145) Potassium Level 3.9mmol/L (3.5-5.1) Chloride Level 114mmol/L (98-107) Carbon Dioxide Level 28mmol/L (21-32) Anion Gap 8 (6-14) Blood Urea Nitrogen 45mg/dL (8-26) Creatinine 1.0mg/dL (0.7-1.3) Estimated GFR (Cockcroft-Gault) 88.6 Glucose Level 237mg/dL (70-99) Calcium Level 8.6mg/dL (8.5-10.1) Review of Systems Review of Systems (+) increased thirst (+) facial swelling Assessment and Plan Assessmemt and Plan Problems Medical Problems: (1) COPD exacerbation Status: Acute (2) Hyperglycemia Status: Acute - angioedema, likely 2/2 to ACEI; self extubated 07/14/16 - resolved - s/p CP arrest (PEA) sec to Multiple bilateral PE (07/15) - Non-occlusive thrombus, R leg (07/15) - COPD exacerbation - Low TSH levels in a critically ill patient - DM2; insulin requiring - Oliguric Hyperkalemic renal failure - Metabolic acidosis s/p arrest - Dyslipidemia on statin - Hypotensive shock, resolved and off pressors - Acute respiratory failure - intubated again (07/15) secondary to code blue ( PEA # 2) - leukocytosis, most likely stress response vs. steroid use. Plan: - Continue ICU monitoring - maintain O2 saturation >90% - continue anticoagulation; consider bridge to lovenox or NOACs - pulm, GI, and renal recommendations appreciated - continue with PPN for nutrition - GI ppx. - cont. steroid taper - recheck AM labs - PT/OT - consider ICU delirium preventative measures to help with orientation. Problems: Comment Review of Relevant I have reviewed the following items valerie (where applicable) has been applied. Labs Laboratory Tests Test 07/22/16 11:44 07/22/16 17:36 07/22/16 20:56 07/23/16 00:16 Glucose (Fingerstick) 315mg/dL (70-99) 244mg/dL (70-99) 202mg/dL (70-99) 176mg/dL (70-99) Test 07/23/16 05:31 07/23/16 05:40 07/23/16 12:54 07/23/16 14:45 Glucose (Fingerstick) 130mg/dL (70-99) 190mg/dL (70-99) White Blood Count 18.0x10^3/uL (4.0-11.0) Red Blood Count 3.86x10^6/uL (4.30-5.70) Hemoglobin 10.9g/dL (13.0-17.5) Hematocrit 33.6% (39.0-53.0) Mean Corpuscular Volume 87fL (79-100) Mean Corpuscular Hemoglobin 28pg (25-35) Mean Corpuscular Hemoglobin Concent 33g/dL (31-37) Red Cell Distribution Width 14.7% (11.5-14.5) Platelet Count 202x10^3/uL (140-400) Neutrophils (%) (Auto) 85% (31-73) Lymphocytes (%) (Auto) 5% (24-48) Monocytes (%) (Auto) 9% (0-9) Eosinophils (%) (Auto) 0% (0-3) Basophils (%) (Auto) 0% (0-3) Neutrophils # (Auto) 15.3x10^3uL (1.8-7.7) Lymphocytes # (Auto) 0.9x10^3/uL (1.0-4.8) Monocytes # (Auto) 1.6x10^3/uL (0.0-1.1) Eosinophils # (Auto) 0.0x10^3/uL (0.0-0.7) Basophils # (Auto) 0.1x10^3/uL (0.0-0.2) Segmented Neutrophils % 88% (35-66) Lymphocytes % 5% (24-48) Monocytes % 6% (0-10) Metamyelocytes % 1% (0-0) Platelet Estimate Adequate (ADEQUATE) Prothrombin Time 17.6SEC (11.7-14.0) Prothromb Time International Ratio 1.5 (0.8-1.1) Heparin Anti-Xa Act, Unfractionated 0.26IU/mL (0.30-0.70) 0.50IU/mL (0.30-0.70) Sodium Level 154mmol/L (136-145) Potassium Level 3.4mmol/L (3.5-5.1) Chloride Level 115mmol/L (98-107) Carbon Dioxide Level 30mmol/L (21-32) Anion Gap 9 (6-14) Blood Urea Nitrogen 44mg/dL (8-26) Creatinine 1.0mg/dL (0.7-1.3) Estimated GFR (Cockcroft-Gault) 88.6 Glucose Level 139mg/dL (70-99) Calcium Level 8.3mg/dL (8.5-10.1) Test 07/23/16 18:15 07/23/16 20:38 07/23/16 20:40 07/24/16 05:21 Glucose (Fingerstick) 182mg/dL (70-99) 277mg/dL (70-99) 204mg/dL (70-99) Heparin Anti-Xa Act, Unfractionated 0.51IU/mL (0.30-0.70) Test 07/24/16 05:25 White Blood Count 18.7x10^3/uL (4.0-11.0) Red Blood Count 3.45x10^6/uL (4.30-5.70) Hemoglobin 9.7g/dL (13.0-17.5) Hematocrit 30.7% (39.0-53.0) Mean Corpuscular Volume 89fL (79-100) Mean Corpuscular Hemoglobin 28pg (25-35) Mean Corpuscular Hemoglobin Concent 32g/dL (31-37) Red Cell Distribution Width 15.2% (11.5-14.5) Platelet Count 201x10^3/uL (140-400) Neutrophils (%) (Auto) 85% (31-73) Lymphocytes (%) (Auto) 5% (24-48) Monocytes (%) (Auto) 10% (0-9) Eosinophils (%) (Auto) 0% (0-3) Basophils (%) (Auto) 0% (0-3) Neutrophils # (Auto) 15.8x10^3uL (1.8-7.7) Lymphocytes # (Auto) 0.9x10^3/uL (1.0-4.8) Monocytes # (Auto) 1.9x10^3/uL (0.0-1.1) Eosinophils # (Auto) 0.0x10^3/uL (0.0-0.7) Basophils # (Auto) 0.1x10^3/uL (0.0-0.2) Prothrombin Time 22.4SEC (11.7-14.0) Prothromb Time International Ratio 2.1 (0.8-1.1) Heparin Anti-Xa Act, Unfractionated 0.42IU/mL (0.30-0.70) Sodium Level 150mmol/L (136-145) Potassium Level 3.9mmol/L (3.5-5.1) Chloride Level 114mmol/L (98-107) Carbon Dioxide Level 28mmol/L (21-32) Anion Gap 8 (6-14) Blood Urea Nitrogen 45mg/dL (8-26) Creatinine 1.0mg/dL (0.7-1.3) Estimated GFR (Cockcroft-Gault) 88.6 Glucose Level 237mg/dL (70-99) Calcium Level 8.6mg/dL (8.5-10.1) Laboratory Tests Test 07/23/16 12:54 07/23/16 14:45 07/23/16 18:15 07/23/16 20:38 Glucose (Fingerstick) 190mg/dL (70-99) 182mg/dL (70-99) 277mg/dL (70-99) Heparin Anti-Xa Act, Unfractionated 0.50IU/mL (0.30-0.70) Test 07/23/16 20:40 07/24/16 05:21 07/24/16 05:25 Heparin Anti-Xa Act, Unfractionated 0.51IU/mL (0.30-0.70) 0.42IU/mL (0.30-0.70) Glucose (Fingerstick) 204mg/dL (70-99) White Blood Count 18.7x10^3/uL (4.0-11.0) Red Blood Count 3.45x10^6/uL (4.30-5.70) Hemoglobin 9.7g/dL (13.0-17.5) Hematocrit 30.7% (39.0-53.0) Mean Corpuscular Volume 89fL (79-100) Mean Corpuscular Hemoglobin 28pg (25-35) Mean Corpuscular Hemoglobin Concent 32g/dL (31-37) Red Cell Distribution Width 15.2% (11.5-14.5) Platelet Count 201x10^3/uL (140-400) Neutrophils (%) (Auto) 85% (31-73) Lymphocytes (%) (Auto) 5% (24-48) Monocytes (%) (Auto) 10% (0-9) Eosinophils (%) (Auto) 0% (0-3) Basophils (%) (Auto) 0% (0-3) Neutrophils # (Auto) 15.8x10^3uL (1.8-7.7) Lymphocytes # (Auto) 0.9x10^3/uL (1.0-4.8) Monocytes # (Auto) 1.9x10^3/uL (0.0-1.1) Eosinophils # (Auto) 0.0x10^3/uL (0.0-0.7) Basophils # (Auto) 0.1x10^3/uL (0.0-0.2) Prothrombin Time 22.4SEC (11.7-14.0) Prothromb Time International Ratio 2.1 (0.8-1.1) Sodium Level 150mmol/L (136-145) Potassium Level 3.9mmol/L (3.5-5.1) Chloride Level 114mmol/L (98-107) Carbon Dioxide Level 28mmol/L (21-32) Anion Gap 8 (6-14) Blood Urea Nitrogen 45mg/dL (8-26) Creatinine 1.0mg/dL (0.7-1.3) Estimated GFR (Cockcroft-Gault) 88.6 Glucose Level 237mg/dL (70-99) Calcium Level 8.6mg/dL (8.5-10.1) Microbiology 07/15/16 Blood Culture - Final, Complete NO GROWTH AFTER 5 DAYS 07/14/16 Urine Culture - Final, Complete 07/14/16 Urine Culture Result 1 (MARÍA) - Final, Complete 07/14/16 Urine Culture Result 2 (MARÍA) - Final, Complete 07/14/16 Antimicrobic Susceptibility - Final, Complete Medications Current Medications Albuterol/ Ipratropium (Duoneb) 6 ml 1X ONCE NEB Last administered on 12:34; Start 07/12/16 at 12:30; Stop 07/12/16 at 12:31; Status DC Prednisone 60 mg 60 mg 1X ONCE PO Last administered on 07/12/16 12:40; Start 07/12/16 at 12:30; Stop 07/12/16 at 12:31; Status DC Sodium Chloride (Iv Sodium Chloride 0.9% 1000ml Bag) 1,000 ml @ 1,000 mls/hr 1X ONCE IV Last administered on 07/12/16 13:12; Start 07/12/16 at 13:15; Stop 07/12/16 at 14:14; Status DC Insulin Human Regular (Novolin R Vial) 10 unit 1X ONCE IV Last administered on 07/12/16 13:16; Start 07/12/16 at 13:15; Stop 07/12/16 at 13:16; Status DC Diphenhydramine HCl (Benadryl) 50 mg STK-MED ONCE .ROUTE ; Start 07/12/16 at 14: 55; Stop 07/12/16 at 14:56; Status DC Diphenhydramine HCl (Benadryl) 50 mg 1X ONCE IVP Last administered on 15:15; Start 07/12/16 at 15:15; Stop 07/12/16 at 15:16; Status DC Atorvastatin Calcium (Lipitor) 40 mg HS PO Last administered on 07/23/16 20:45 ; Start 07/12/16 at 21:00 Diltiazem HCl (Cardizem 24hr Cd) 240 mg DAILY PO ; Start 07/12/16 at 16:30; Stop 07/13/16 at 17:18; Status DC Insulin Aspart (Novolog) 10 units TIDAC SQ ; Start 07/12/16 at 16:30; Stop 07/12 at 16:30; Status DC Insulin Detemir (Levemir) 20 units QHS SQ ; Start 07/12/16 at 21:00; Stop at 21:00; Status DC Promethazine HCl/ Codeine (Phenergan With Codeine) 5 ml QID PO ; Start 07/12/16 at 17:00; Stop 07/13/16 at 17:18; Status DC Non-Formulary Medication 2 puff BID IH ; Start 07/12/16 at 21:00; Status UNV Non-Formulary Medication 2.5 gm DAILY IH ; Start 07/13/16 at 09:00; Status UNV Budesonide (Pulmicort) 0.5 mg RTBID NEB Last administered on 07/13/16 07:30; Start 07/12/16 at 20:00; Stop 07/13/16 at 11:27; Status DC Albuterol/ Ipratropium (Duoneb) 3 ml RTQID NEB Last administered on 07/16/16 07:47; Start 07/12/16 at 20:00; Stop 07/16/16 at 08:38; Status DC Methylprednisolone Sodium Succinate (Solu-Medrol 40mg Vial) 60 mg 1X ONCE IV Last administered on 07/12/16 16:06; Start 07/12/16 at 16:30; Stop 07/12/16 at 16:31; Status DC Methylprednisolone Sodium Succinate (Solu-Medrol 40mg Vial) 60 mg DAILY IV ; Start 07/13/16 at 09:00; Stop 07/13/16 at 09:00; Status DC Pantoprazole Sodium (Protonix Vial) 40 mg DAILY IVP Last administered on 08:43; Start 07/13/16 at 09:00; Stop 07/17/16 at 20:37; Status DC Diphenhydramine HCl 25 mg 25 mg PRN Q6HRS PRN IVP ANAPHYLAXIS Last administered on 07/12/16 16:06; Start 07/12/16 at 16:00; Stop 07/23/16 at 04:47 ; Status DC Sodium Chloride (Iv Sodium Chloride 0.9% 1000ml Bag) 1,000 ml @ 150 mls/hr Q6H40M IV Last administered on 07/14/16 01:21; Start 07/12/16 at 16:30; Stop 07/14/16 at 09:31; Status DC Albuterol/ Ipratropium (Duoneb) 3 ml QID NEB ; Start 07/12/16 at 17:00; Status UNV Albuterol Sulfate (Ventolin Neb Soln) 2.5 mg PRN Q2HR PRN NEB SHORTNESS OF BREATH Last administered on 07/24/16 05:20; Start 07/12/16 at 16:00 Insulin Aspart (Novolog) 0-9 UNITS QID SQ Last administered on 07/14/16 08:37 ; Start 07/12/16 at 17:00; Stop 07/14/16 at 09:31; Status DC Dextrose 12.5 gm PRN Q15MIN PRN IV SEE COMMENTS; Start 07/12/16 at 16:00; Stop 07/15/16 at 12:46; Status DC Insulin Detemir (Levemir) 15 units QHS SQ ; Start 07/12/16 at 21:00; Stop at 21:00; Status DC Enoxaparin Sodium (Lovenox 40mg Syringe) 40 mg DAILY SQ Last administered on t 08:54; Start 07/12/16 at 16:30; Stop 07/15/16 at 14:28; Status DC Insulin Detemir (Levemir) 20 units QHS SQ Last administered on 07/12/16t 23:49 ; Start 07/12/16 at 21:00; Stop 07/13/16 at 15:18; Status DC Succinylcholine Chloride 200 mg 200 mg STK-MED ONCE .ROUTE ; Start 07/12/16 at 17:46; Stop 07/12/16 at 17:47; Status DC Propofol (Diprivan) 100 ml @ As Directed STK-MED ONCE IV ; Start 07/12/16 at 17 :46; Stop 07/12/16 at 17:47; Status DC Lidocaine HCl 100 mg STK-MED ONCE .ROUTE ; Start 07/12/16 at 18:02; Stop at 18:03; Status DC Ketamine HCl 500 mg 1X ONCE IV ; Start 07/12/16 at 18:30; Stop 07/12/16 at 18: 31; Status DC Midazolam HCl (Versed) 5 mg STK-MED ONCE .ROUTE ; Start 07/12/16 at 18:14; Stop 07/12/16 at 18:15; Status DC Midazolam HCl (Versed) 2 mg 1X ONCE IV ; Start 07/12/16 at 18:30; Stop at 18:31; Status DC Glycopyrrolate (Robinul) 1 mg 1X ONCE IV ; Start 07/12/16 at 18:30; Stop at 18:31; Status DC Oxymetazoline HCl (Afrin) 2 spray 1X ONCE NS ; Start 07/12/16 at 18:30; Stop at 18:31; Status DC Lidocaine HCl 30 ml STK-MED ONCE .ROUTE ; Start 07/12/16 at 18:19; Stop at 18:20; Status DC Vecuronium [place] 6 mg 6 mg PRN Q4HRS PRN IV ANXIETY / AGITATION Last administered on 07/12/16 19:55; Start 07/12/16 at 19:00; Stop 07/15/16 at 07:58 ; Status DC Propofol (Diprivan) 100 ml @ 0 mls/hr CONT PRN IV SEE I/O RECORD Last administered on 07/14/16 13:42; Start 07/12/16 at 19:00; Stop 07/15/16 at 07:58 ; Status DC Insulin Aspart 10 units 10 units 1X ONCE SQ Last administered on 07/12/16 19: 41; Start 07/12/16 at 19:45; Stop 07/12/16 at 19:46; Status DC Vecuronium [place] 100 mg/ Dextrose 100 ml @ 0 mls/hr CONT PRN IV SEE I/O RECORD Last administered on 07/13/16 20:48; Start 07/12/16 at 21:00; Stop 07/14 at 09:31; Status DC Fentanyl Citrate (Fentanyl 600 Mcg/30 ml [employer]LYST) 30 ml @ 0 mls/hr CONT PRN IV PROTOCOL Last administered on 07/14/16 09:33; Start 07/12/16 at 22:00; Stop at 07:58; Status DC Chlorhexidine Gluconate (Peridex) 15 ml BID MM Last administered on 07/23/16 08:22; Start 07/13/16 at 09:00; Stop 07/23/16 at 09:42; Status DC Methylprednisolone Sodium Succinate (Solu-Medrol 125mg Vial) 125 mg BID IV Last administered on 07/14/16 21:02; Start 07/13/16 at 09:00; Stop 07/15/16 at 07:58; Status DC Rocuronium [place] (Zemuron) 50 mg STK-MED ONCE .ROUTE ; Start 07/12/16 at 15:00 ; Stop 07/13/16 at 08:54; Status DC Glycopyrrolate (Robinul) 1 mg STK-MED ONCE .ROUTE ; Start 07/12/16 at 15:00; Stop 07/13/16 at 08:54; Status DC Lidocaine HCl 30 ml STK-MED ONCE .ROUTE ; Start 07/12/16 at 18:00; Stop at 09:05; Status DC Midazolam HCl (Versed) 5 mg STK-MED ONCE .ROUTE ; Start 07/12/16 at 18:00; Stop 07/13/16 at 09:05; Status DC Propofol (Diprivan) 1,000 mg STK-MED ONCE IV ; Start 07/12/16 at 18:00; Stop at 09:05; Status DC Succinylcholine Chloride (Anectine) 200 mg STK-MED ONCE .ROUTE ; Start 07/12/16 at 18:00; Stop 07/13/16 at 09:05; Status DC Multi-Ingred Cream/Lotion/Oil/ Oint (Artificial Tears Eye Oint) 1 margie PRN Q1HR PRN OU DRY EYE Last administered on 07/13/16 15:45; Start 07/13/16 at 11:00 Ketamine HCl 500 mg STK-MED ONCE .ROUTE ; Start 07/12/16 at 18:30; Stop at 12:05; Status DC Insulin Aspart (Novolog) 10 units 1X STAT SQ Last administered on 07/13/16 12 :36; Start 07/13/16 at 12:17; Stop 07/13/16 at 12:20; Status DC Insulin Aspart (Novolog) 10 units 1X ONCE SQ Last administered on 07/13/16 14 :31; Start 07/13/16 at 14:30; Stop 07/13/16 at 14:31; Status DC Insulin Detemir (Levemir) 40 units QHS SQ Last administered on 07/13/16 20:50 ; Start 07/13/16 at 21:00; Stop 07/14/16 at 09:31; Status DC Benzocaine (Hurricaine One) 1 spray STK-MED ONCE .ROUTE ; Start 07/12/16 at 12: 00; Stop 07/13/16 at 16:00; Status DC Lidocaine HCl 5 margie 5 margie STK-MED ONCE TP ; Start 07/12/16 at 12:00; Stop at 16:00; Status DC Insulin Human Regular/Sodium Chloride (Novolin R Vial/ Iv Normal Saline 150ml) 151.5 ml @ 0 mls/hr CONT PRN IV SEE I/O RECORD Last administered on 07/14/16 10:01; Start 07/14/16 at 09:30; Stop 07/15/16 at 07:58; Status DC Info 1 each 1 each PRN DAILY PRN MC SEE COMMENTS Last administered on 08:27; Start 07/14/16 at 09:30; Stop 07/19/16 at 16:30; Status DC Magnesium Sulfate/ Dextrose 50 ml @ 25 mls/hr PRN DAILY PRN IV for Mag < 1.7 on am labs; Start 07/14/16 at 11:15; Stop 07/15/16 at 07:58; Status DC Sodium Chloride 500 ml @ 500 mls/hr QID PRN IV UO< 30cc/hr over previous 6hrs ; Start 07/14/16 at 11:15; Stop 07/14/16 at 11:26; Status DC Sodium Chloride 500 ml @ 500 mls/hr PRN QID PRN IV UO< 30cc/hr over previous 6hrs Last administered on 07/16/16 10:00; Start 07/14/16 at 11:26 Ceftriaxone Sodium 1 gm/ Sodium Chloride 50 ml @ 100 mls/hr Q24H IV Last administered on 07/19/16 12:25; Start 07/14/16 at 12:00; Stop 07/20/16 at 12:29 ; Status DC Sodium Chloride/ Magnesium Sulfate/ Calcium Gluconate/ Multivitamins/ Chromium/ Copper/ Manganese/Seleni/ Zn/Total Parenteral Nutrition/Amino Acids/Dextrose ( Sodium Chloride/ Infuvite Adult/ Multitrace-5 Conc/ Tpn - Tpn Fluid/ Trophamine / Dextrose 70%-Water Iv Soln) 1,512 ml @ 63 mls/hr TPN CONT IV Last administered on 07/14/16 22:29; Start 07/14/16 at 22:00; Stop 07/15/16 at 21:59 ; Status DC Hydralazine HCl (Apresoline) 10 mg PRN Q4HRS PRN IVP ELEVATED BP, SEE COMMENTS Last administered on 07/24/16 02:30; Start 07/14/16 at 22:30 Methylprednisolone Sodium Succinate (Solu-Medrol 125mg Vial) 125 mg DAILY IV Last administered on 07/15/16 08:55; Start 07/15/16 at 09:00; Stop 07/16/16 at 08:35; Status DC Insulin Aspart (Novolog) 0-9 UNITS TIDWMEALS SQ Last administered on 07/15/16 16:16; Start 07/15/16 at 08:00; Stop 07/16/16 at 07:16; Status DC Dextrose 12.5 gm PRN Q15MIN PRN IV SEE COMMENTS; Start 07/15/16 at 08:00; Stop 07/19/16 at 10:53; Status DC Insulin Detemir (Levemir) 20 units QHS SQ Last administered on 07/15/16 21:48 ; Start 07/15/16 at 21:00; Stop 07/16/16 at 07:16; Status DC Insulin Aspart (Novolog) 10 units TIDAC SQ ; Start 07/15/16 at 11:30; Stop 07/16 at 07:16; Status DC Sodium Polystyrene Sulfonate (Kayexalate) 30 gm 1X ONCE PO ; Start 07/15/16 at 08:00; Stop 07/15/16 at 08:08; Status DC Hydrochlorothiazide (Microzide) 12.5 mg DAILY PO ; Start 07/15/16 at 09:00; Stop 07/16/16 at 07:39; Status DC Isosorbide Mononitrate (Imdur) 120 mg DAILY PO ; Start 07/15/16 at 09:00; Stop 07/15/16 at 09:00; Status DC Diltiazem HCl (Cardizem 24hr Cd) 240 mg DAILY PO ; Start 07/15/16 at 09:00; Stop 07/16/16 at 07:39; Status DC Guaifenesin (Mucinex) 600 mg BID PO ; Start 07/15/16 at 09:00; Stop 07/16/16 at 07:39; Status DC Mupirocin (Bactroban) 1 margie BID NS Last administered on 07/24/16 07:59; Start 07/15/16 at 09:00 Isosorbide Mononitrate (Imdur) 120 mg DAILY PO ; Start 07/15/16 at 09:00; Stop 07/16/16 at 07:39; Status DC Sodium Bicarbonate 50 meq 1X ONCE IV Last administered on 07/15/16 15:22; Start 07/15/16 at 10:45; Stop 07/15/16 at 10:46; Status DC Sodium Bicarbonate 50 meq 50 meq STK-MED ONCE .ROUTE ; Start 07/15/16 at 10:34; Stop 07/15/16 at 10:35; Status DC Dopamine HCl/ Dextrose 250 ml @ As Directed STK-MED ONCE IV ; Start 07/15/16 at 10:37; Stop 07/15/16 at 10:38; Status DC Midazolam HCl (Versed) 5 mg STK-MED ONCE .ROUTE ; Start 07/15/16 at 10:41; Stop 07/15/16 at 10:42; Status DC Iohexol 100 ml 100 ml STK-MED ONCE .ROUTE ; Start 07/15/16 at 10:45; Stop at 10:46; Status DC Heparin Sodium/ Sodium Chloride 1,500 ml @ As Directed STK-MED ONCE .ROUTE ; Start 07/15/16 at 10:45; Stop 07/15/16 at 10:46; Status DC Lidocaine HCl 20 ml 20 ml STK-MED ONCE .ROUTE ; Start 07/15/16 at 10:45; Stop at 10:46; Status DC Dopamine HCl/ Dextrose 250 ml @ 16.255 mls/ hr CONT PRN IV SEE I/O RECORD Last administered on 07/16/16 23:10; Start 07/15/16 at 11:00 Sodium Chloride 1,000 ml @ 1,000 mls/hr 1X ONCE IV Last administered on 11:00; Start 07/15/16 at 11:00; Stop 07/15/16 at 11:59; Status DC Norepinephrine Bitartrate/Sodium Chloride (Levophed Vial/ Iv Sodium Chloride 0.9 % 250ml) 258 ml @ 0 mls/hr CONT PRN IV SEE I/O RECORD Last administered on 07/17 00:51; Start 07/15/16 at 11:00 Midazolam HCl (Versed) 5 mg STK-MED ONCE .ROUTE ; Start 07/15/16 at 10:54; Stop 07/15/16 at 10:55; Status DC Fentanyl Citrate (Fentanyl 2ml Vial) 100 mcg STK-MED ONCE .ROUTE ; Start at 11:02; Stop 07/15/16 at 11:03; Status DC Vecuronium [place] 10 mg 10 mg STK-MED ONCE IV ; Start 07/15/16 at 11:03; Stop 07/15/16 at 11:04; Status DC Midazolam HCl (Versed 100mg/ 100ml Premix) 100 ml @ As Directed STK-MED ONCE IV ; Start 07/15/16 at 11:03; Stop 07/15/16 at 11:04; Status DC Iohexol (Omnipaque 300 Mg/ml) 112 ml 1X ONCE IART Last administered on 11:56; Start 07/15/16 at 12:00; Stop 07/15/16 at 12:01; Status DC Lidocaine HCl 10 ml 1X ONCE IJ Last administered on 07/15/16 11:57; Start at 12:00; Stop 07/15/16 at 12:01; Status DC Heparin Sodium/ Sodium Chloride 1000 unit 1,000 unit 1X ONCE IART ; Start 07/15 at 12:00; Stop 07/15/16 at 12:01; Status DC Sodium Chloride/ Magnesium Sulfate/ Calcium Gluconate/ Multivitamins/ Chromium/ Copper/ Manganese/Seleni/ Zn/Total Parenteral Nutrition/Amino Acids/Dextrose ( Sodium Chloride/ Infuvite Adult/ Multitrace-5 Conc/ Tpn - Tpn Fluid/ Trophamine / Dextrose 70%-Water Iv Soln) 1,512 ml @ 63 mls/hr TPN CONT IV Last administered on 07/15/16 21:27; Start 07/15/16 at 22:00; Stop 07/16/16 at 21:59 ; Status DC Iohexol (Omnipaque 300 Mg/ml) 75 ml 1X ONCE IV Last administered on 07/15/16 13:43; Start 07/15/16 at 13:15; Stop 07/15/16 at 13:16; Status DC Info (Do NOT chart on this entry -- for MONITORING) 1 each PRN DAILY PRN MC SEE COMMENTS; Start 07/15/16 at 13:15; Stop 07/17/16 at 13:14; Status DC Heparin Sodium (Porcine) 7000 unit 7,000 unit 1X ONCE IV Last administered on 07/15/16 15:27; Start 07/15/16 at 14:45; Stop 07/15/16 at 14:46; Status DC Heparin Sodium/ Dextrose 500 ml @ 0 mls/hr CONT PRN IV SEE I/O RECORD Last administered on 07/17/16 18:41; Start 07/15/16 at 14:30; Stop 07/18/16 at 10:21 ; Status DC Heparin Sodium (Porcine) 2,600 unit PRN Q6HRS PRN IV FOR UFH LEVEL LESS THAN 0.2; Start 07/15/16 at 14:30; Stop 07/18/16 at 10:21; Status DC Heparin Sodium (Porcine) 1,300 unit PRN Q6HRS PRN IV FOR UFH LEVEL 0.2 - 0.29; Start 07/15/16 at 14:30; Stop 07/18/16 at 10:21; Status DC Warfarin Sodium (Coumadin Per Pharmacy) 1 each PRN DAILY PRN MC PER PROTOCOL; Start 07/15/16 at 14:30; Stop 07/15/16 at 14:30; Status DC Sodium Bicarbonate 50 meq 50 meq 1X ONCE IV Last administered on 07/15/16 16: 30; Start 07/15/16 at 16:30; Stop 07/15/16 at 16:34; Status DC Alteplase, Recombinant (Activase) 100 ml @ 50 mls/hr 1X ONCE IV Last administered on 07/15/16 17:30; Start 07/15/16 at 17:30; Stop 07/15/16 at 19:29 ; Status DC Fentanyl Citrate (Fentanyl 2ml Vial) 25 mcg PRN Q1HR PRN IV COMM; Start at 22:30; Stop 07/16/16 at 07:17; Status DC Fentanyl Citrate (Fentanyl 2ml Vial) 50 mcg PRN Q1HR PRN IV COMM Last administered on 07/16/16 05:30; Start 07/15/16 at 22:30; Stop 07/16/16 at 07:17 ; Status DC Scopolamine (Transderm-Scop) 1 patch Q3DAYS TD Last administered on 07/24/16 07 :59; Start 07/18/16 at 09:00 Scopolamine 1 patch 1 patch ONCE ONCE TD ; Start 07/15/16 at 23:30; Stop at 23:31; Status DC Sodium Chloride 1,000 ml @ 1,000 mls/hr 1X ONCE IV Last administered on 02:38; Start 07/16/16 at 01:00; Stop 07/16/16 at 01:59; Status DC Midazolam HCl 100 ml @ As Directed STK-MED ONCE IV ; Start 07/16/16 at 01:00; Stop 07/16/16 at 01:01; Status DC Midazolam HCl 100 ml @ 0 mls/hr CONT PRN IV SEE I/O RECORD Last administered on 07/19/16 07:52; Start 07/16/16 at 01:15 Vasopressin 40 unit/Dextrose 102 ml @ 6 mls/hr CONT PRN IV SEE I/O RECORD Last administered on 07/17/16 13:33; Start 07/16/16 at 05:00 Insulin Human Regular 150 unit/ Sodium Chloride 151.5 ml @ 0 mls/hr CONT PRN IV SEE I/O RECORD Last administered on 07/17/16 02:26; Start 07/16/16 at 05:00 ; Stop 07/17/16 at 10:10; Status DC Fentanyl Citrate (Fentanyl 600 Mcg/30 ml [employer]) 30 ml @ 0 mls/hr CONT PRN IV PROTOCOL Last administered on 07/24/16 09:45; Start 07/16/16 at 07:15 Vecuronium [place] (Norcuron Bolus) 10 mg STK-MED ONCE IV ; Start 07/15/16 at 11 :00; Stop 07/16/16 at 08:06; Status DC Fentanyl Citrate (Fentanyl 2ml Vial) 100 mcg STK-MED ONCE .ROUTE ; Start at 11:00; Stop 07/16/16 at 08:06; Status DC Midazolam HCl (Versed) 10 mg STK-MED ONCE .ROUTE ; Start 07/15/16 at 11:00; Stop 07/16/16 at 08:06; Status DC Dopamine HCl/ Dextrose 400 mg STK-MED ONCE IV ; Start 07/15/16 at 11:00; Stop at 08:06; Status DC Sodium Bicarbonate 50 meq STK-MED ONCE .ROUTE ; Start 07/15/16 at 11:00; Stop at 08:06; Status DC Hydrocortisone Sodium Succinate (Solu-Cortef) 100 mg Q8HRS IV Last administered on 07/19/16 05:50; Start 07/16/16 at 09:00; Stop 07/19/16 at 09:30 ; Status DC Sodium Polystyrene Sulfonate 30 gm 30 gm 1X ONCE PO Last administered on 08:41; Start 07/16/16 at 08:30; Stop 07/16/16 at 08:34; Status DC Albumin Human (Plasmanate) 500 ml @ 125 mls/hr PRN Q6HRS PRN IV for CVP < 10; MAP < 65 Last administered on 07/17/16 08:12; Start 07/16/16 at 08:30 Sodium Bicarbonate 50 meq 1X ONCE IV Last administered on 07/16/16 08:41; Start 07/16/16 at 08:45; Stop 07/16/16 at 08:46; Status DC Info (Anti-Coagulation Monitoring By Pharmacy) 1 each PRN DAILY PRN MC SEE COMMENTS; Start 07/16/16 at 08:45; Status Cancel Ipratropium [place] (Atrovent) 0.5 mg RTQID NEB Last administered on 07/24/16 08:02; Start 07/16/16 at 12:00 Lidocaine/Sodium Bicarbonate (Buffered Lidocaine 1%) 3 ml 1X ONCE IJ Last administered on 07/16/16 10:43; Start 07/16/16 at 09:15; Stop 07/16/16 at 09:16 ; Status DC Heparin Sodium/ Sodium Chloride 60 unit 1X ONCE IV Last administered on 10:44; Start 07/16/16 at 09:15; Stop 07/16/16 at 09:16; Status DC Heparin Sodium (Porcine) 2500 unit 2,500 unit 1X ONCE INT CAT Last administered on 07/16/16 10:44; Start 07/16/16 at 09:15; Stop 07/16/16 at 09:16 ; Status DC Sodium Chloride 40 meq/Sodium Acetate 40 meq/ Magnesium Sulfate 8 meq/Calcium Gluconate 5 meq/ Multivitamins 10 ml/Chromium/ Copper/Manganese/ Seleni/Zn 1 ml / Insulin Human Regular 10 unit/ Total Parenteral Nutrition/Amino Acids/Dextrose / Fat Emulsion Intravenous 1,512 ml @ 63 mls/hr TPN CONT IV Last administered on 07/16/16 21:53; Start 07/16/16 at 22:00; Stop 07/17/16 at 21:59 ; Status DC Pantoprazole Sodium 80 mg/ Sodium Chloride 100 ml @ 10 mls/hr Q10H IV Last administered on 07/21/16 10:10; Start 07/17/16 at 06:45; Stop 07/21/16 at 12:21 ; Status DC Sodium Acetate/ Potassium Acetate/ Magnesium Sulfate/ Calcium Gluconate/ Multivitamins/ Chromium/Copper/ Manganese/Seleni/ Zn/Insulin Human Regular/ Total Parenteral Nutrition/Amino Acids/Dextrose/ Fat Emulsion Intravenous ( Calcium Gluconate/ Infuvite Adult/ Multitrace-5 Conc/ Novolin R Vi... 1,512 ml @ 63 mls/hr TPN CONT IV Last administered on 07/17/16 21:49; Start 07/17/16 at 22:00; Stop 07/18/16 at 21:59; Status DC Insulin Detemir (Levemir) 25 units BID SQ Last administered on 07/17/16 20:51 ; Start 07/17/16 at 10:30; Stop 07/18/16 at 08:12; Status DC Insulin Aspart (Novolog) 0-9 UNITS TIDWMEALS SQ Last administered on 07/18/16 10:03; Start 07/17/16 at 12:00; Stop 07/18/16 at 11:55; Status DC Dextrose 12.5 gm PRN Q15MIN PRN IV SEE COMMENTS; Start 07/17/16 at 10:15; Status UNV Iohexol (Omnipaque 300 Mg/ml) 100 ml STK-MED ONCE .ROUTE ; Start 07/17/16 at 10: 45; Stop 07/17/16 at 10:46; Status DC Lidocaine/Sodium Bicarbonate 20 ml 20 ml STK-MED ONCE IJ ; Start 07/17/16 at 10: 45; Stop 07/17/16 at 10:46; Status DC Heparin Sodium/ Sodium Chloride 500 ml @ As Directed STK-MED ONCE .ROUTE ; Start 07/17/16 at 10:46; Stop 07/17/16 at 10:47; Status DC Heparin Sodium/ Sodium Chloride 1,000 unit 1X ONCE IART Last administered on 11:27; Start 07/17/16 at 11:15; Stop 07/17/16 at 11:26; Status DC Lidocaine/Sodium Bicarbonate (Buffered Lidocaine 1%) 3 ml 1X ONCE IJ Last administered on 07/17/16 11:15; Start 07/17/16 at 11:15; Stop 07/17/16 at 11:26 ; Status DC Iohexol (Omnipaque 300 Mg/ml) 40 ml 1X ONCE IART Last administered on 11:26; Start 07/17/16 at 11:15; Stop 07/17/16 at 11:26; Status DC Info (Do NOT chart on this entry -- for MONITORING) 1 each PRN DAILY PRN MC SEE COMMENTS; Start 07/17/16 at 11:30; Stop 07/19/16 at 11:29; Status DC Calcium Chloride 2,000 mg STK-MED ONCE IV ; Start 07/16/16 at 13:02; Stop at 13:03; Status DC Epinephrine HCl 4 mg STK-MED ONCE .ROUTE ; Start 07/16/16 at 13:02; Stop at 13:03; Status DC Furosemide 40 mg 40 mg 1X ONCE IVP Last administered on 07/17/16 16:45; Start 07/17/16 at 16:45; Stop 07/17/16 at 16:47; Status DC Propofol (Diprivan) 100 ml @ As Directed STK-MED ONCE IV ; Start 07/17/16 at 16 :36; Stop 07/17/16 at 16:37; Status DC Insulin Detemir (Levemir) 35 units BID SQ Last administered on 07/18/16 10:00 ; Start 07/18/16 at 09:00; Stop 07/18/16 at 11:55; Status DC Insulin Aspart (Novolog) 10 units Q6HRS SQ ; Start 07/18/16 at 12:00; Stop 07/18 at 12:00; Status DC Insulin Aspart 20 units 20 units 1X ONCE SQ Last administered on 07/18/16 10: 02; Start 07/18/16 at 08:15; Stop 07/18/16 at 11:56; Status DC Sodium Acetate/ Potassium Acetate/ Magnesium Sulfate/ Calcium Gluconate/ Multivitamins/ Chromium/Copper/ Manganese/Seleni/ Zn/Insulin Human Regular/ Total Parenteral Nutrition/Amino Acids/Dextrose/ Fat Emulsion Intravenous ( Calcium Gluconate/ Infuvite Adult/ Multitrace-5 Conc/ Novolin R Vi... 1,512 ml @ 63 mls/hr TPN CONT IV Last administered on 07/18/16 22:03; Start 07/18/16 at 22:00; Stop 07/19/16 at 21:59; Status DC Atropine Sulfate 0.5 mg 0.5 mg STK-MED ONCE .ROUTE ; Start 07/18/16 at 09:43; Stop 07/18/16 at 09:44; Status DC Insulin Human Regular/Sodium Chloride (Novolin R Vial/ Iv Normal Saline 150ml) 151.5 ml @ 0 mls/hr CONT PRN IV SEE I/O RECORD Last administered on 07/18/16 13:54; Start 07/18/16 at 11:45; Stop 07/19/16 at 10:27; Status DC Dextrose 12.5 gm 12.5 gm PRN Q15MIN PRN IV LOW BLOOD SUGAR; Start 07/18/16 at 11:45; Stop 07/19/16 at 10:53; Status DC Potassium Chloride (KCl Premix 20meq) 50 ml @ 25 mls/hr Q2H IV Last administered on 07/19/16 11:09; Start 07/19/16 at 09:30; Stop 07/19/16 at 13:29 ; Status DC Propofol (Diprivan) 1,000 mg STK-MED ONCE IV ; Start 07/17/16 at 16:36; Stop at 08:22; Status DC Atropine Sulfate 1 mg STK-MED ONCE .ROUTE ; Start 07/18/16 at 09:43; Stop at 08:53; Status DC Hydrocortisone Sodium Succinate (Solu-Cortef) 50 mg Q8HRS IV Last administered on 07/24/16 05:27; Start 07/19/16 at 14:00 Heparin Sodium (Porcine) 7400 unit 7,400 unit 1X ONCE IV Last administered on 07/19/16 10:03; Start 07/19/16 at 09:45; Stop 07/19/16 at 09:53; Status DC Heparin Sodium/ Dextrose 500 ml @ 0 mls/hr CONT PRN IV SEE I/O RECORD Last administered on 07/24/16 04:44; Start 07/19/16 at 09:45 Heparin Sodium (Porcine) 2,800 unit PRN Q6HRS PRN IV FOR UFH LEVEL LESS THAN 0.2; Start 07/19/16 at 09:45; Stop 07/23/16 at 08:12; Status DC Heparin Sodium (Porcine) 1,400 unit PRN Q6HRS PRN IV FOR UFH LEVEL 0.2 - 0.29 Last administered on 07/20/16 12:06; Start 07/19/16 at 09:45; Stop 07/23/16 at 08:12; Status DC Warfarin Sodium (Coumadin Per Pharmacy) 1 each PRN DAILY PRN MC PER PROTOCOL Last administered on 07/23/16 09:50; Start 07/19/16 at 09:45 Insulin Aspart (Novolog) 0-5 UNITS TIDWMEALS SQ Last administered on 07/19/16 12:02; Start 07/19/16 at 12:00; Stop 07/19/16 at 16:45; Status DC Dextrose 12.5 gm 12.5 gm PRN Q15MIN PRN IV SEE COMMENTS; Start 07/19/16 at 10: 30 Potassium Acetate/ Magnesium Sulfate/ Calcium Gluconate/ Multivitamins/ Chromium /Copper/ Manganese/Seleni/ Zn/Insulin Human Regular/Total Parenteral Nutrition/ Amino Acids/Dextrose/ Fat Emulsion Intravenous (Calcium Gluconate/ Infuvite Adult/ Multitrace-5 Conc/ Novolin R Vial/ Tpn - Tpn Flu... 1,200 ml @ 50 mls/ hr TPN CONT IV ; Start 07/19/16 at 22:00; Stop 07/19/16 at 22:00; Status DC Insulin Aspart (Novolog) 0-5 UNITS Q6HRS SQ Last administered on 07/21/16 12: 04; Start 07/19/16 at 18:00; Stop 07/21/16 at 12:34; Status DC Warfarin Sodium (Coumadin) 4 mg 1X WARF ONCE PO Last administered on 17:26; Start 07/19/16 at 17:02; Stop 07/19/16 at 17:03; Status DC Fentanyl Citrate (Fentanyl 2ml Vial) 50 mcg PRN Q2HR PRN IV PAIN Last administered on 07/22/16 03:15; Start 07/20/16 at 02:45; Stop 07/22/16 at 04:45 ; Status DC Warfarin Sodium (Coumadin) 5 mg 1X WARF ONCE PO Last administered on 17:09; Start 07/20/16 at 16:00; Stop 07/20/16 at 16:01; Status DC Midazolam HCl 1 mg 1 mg PRN Q1HR PRN IV sedation on vent; Start 07/20/16 at 11: 15; Stop 07/22/16 at 04:46; Status DC Sodium Chloride (Iv Sodium Chloride 0.9% 1000ml Bag) 1,000 ml @ 75 mls/hr [id number] IV Last administered on 07/23/16 05:31; Start 07/20/16 at 11:15; Stop 07/23/16 at 11:50; Status DC Midazolam HCl (Versed) 2 mg PRN Q1HR PRN IV sedation on vent; Start 07/20/16 at 11:15; Stop 07/22/16 at 04:47; Status DC Midazolam HCl (Versed) 3 mg PRN Q1HR PRN IV sedation on vent; Start 07/20/16 at 11:15; Stop 07/22/16 at 04:47; Status DC Midazolam HCl (Versed) 4 mg PRN Q1HR PRN IV sedation on vent Last administered on 07/22/16 04:32; Start 07/20/16 at 11:15; Stop 07/22/16 at 04:47; Status DC Insulin Detemir (Levemir) 15 units QHS SQ Last administered on 07/20/16 20:47 ; Start 07/20/16 at 21:00; Stop 07/21/16 at 12:34; Status DC Warfarin Sodium (Coumadin) 5 mg 1X WARF ONCE PO Last administered on 15:37; Start 07/21/16 at 16:00; Stop 07/21/16 at 16:01; Status DC Pantoprazole Sodium (Protonix Vial) 40 mg DAILYAC IVP Last administered on 07/22 07:41; Start 07/22/16 at 07:30; Stop 07/23/16 at 04:47; Status DC Insulin Detemir (Levemir) 25 units QHS SQ Last administered on 07/23/16 20:47 ; Start 07/21/16 at 21:00 Docusate Sodium (Colace) 100 mg BID PO Last administered on 07/23/16 20:45; Start 07/21/16 at 21:00 Insulin Aspart (Novolog) 0-9 UNITS Q6HRS SQ Last administered on 07/24/16 05:28 ; Start 07/21/16 at 13:00 Fentanyl Citrate (Fentanyl 2ml Vial) 100 mcg STK-MED ONCE .ROUTE ; Start at 22:18; Stop 07/21/16 at 22:19; Status DC Midazolam HCl (Versed) 2 mg STK-MED ONCE .ROUTE ; Start 07/21/16 at 23:45; Stop 07/21/16 at 23:46; Status DC Fentanyl Citrate (Fentanyl 2ml Vial) 100 mcg STK-MED ONCE .ROUTE ; Start at 00:36; Stop 07/22/16 at 00:37; Status DC Midazolam HCl (Versed) 2 mg STK-MED ONCE .ROUTE ; Start 07/22/16 at 00:57; Stop 07/22/16 at 00:58; Status DC Midazolam HCl (Versed) 2 mg STK-MED ONCE .ROUTE ; Start 07/22/16 at 02:06; Stop 07/22/16 at 02:07; Status DC Midazolam HCl (Versed) 2 mg STK-MED ONCE .ROUTE ; Start 07/22/16 at 03:13; Stop 07/22/16 at 03:14; Status DC Fentanyl Citrate (Fentanyl 2ml Vial) 100 mcg STK-MED ONCE .ROUTE ; Start at 03:14; Stop 07/22/16 at 03:15; Status DC Midazolam HCl (Versed) 2 mg STK-MED ONCE .ROUTE ; Start 07/22/16 at 04:29; Stop 07/22/16 at 04:30; Status DC Fentanyl Citrate (Fentanyl 2ml Vial) 50 mcg PRN Q2HR PRN IV SEVERE PAIN Last administered on 07/24/16 07:27; Start 07/22/16 at 04:45 Midazolam HCl (Versed) 1 mg PRN Q1HR PRN IV sedation on vent; Start 07/22/16 at 04:46 Midazolam HCl (Versed) 2 mg PRN Q1HR PRN IV sedation on vent Last administered on 07/22/16 07:42; Start 07/22/16 at 04:47 Midazolam HCl (Versed) 3 mg PRN Q1HR PRN IV sedation on vent; Start 07/22/16 at 04:47 Midazolam HCl (Versed) 4 mg PRN Q1HR PRN IV sedation on vent Last administered on 07/22/16 05:33; Start 07/22/16 at 04:47 Warfarin Sodium (Coumadin) 7.5 mg 1X WARF ONCE PO Last administered on 17:38; Start 07/22/16 at 16:00; Stop 07/22/16 at 16:01; Status DC Metoprolol Tartrate (Lopressor) 5 mg Q6HRS IVP Last administered on 07/24/16 05 :27; Start 07/22/16 at 12:30 Atorvastatin Calcium (Lipitor) 40 mg STK-MED ONCE .ROUTE ; Start 07/22/16 at 20: 37; Stop 07/22/16 at 20:38; Status DC Diphenhydramine HCl (Benadryl) 25 mg PRN Q6HRS PRN IVP ANAPHYLAXIS; Start 07/23 at 04:47 Pantoprazole Sodium (Protonix Vial) 40 mg DAILYAC IVP Last administered on 07:59; Start 07/23/16 at 04:47 Heparin Sodium (Porcine) 3,100 unit PRN Q6HRS PRN IV FOR UFH LEVEL LESS THAN 0.2; Start 07/23/16 at 08:15 Heparin Sodium (Porcine) 1,600 unit PRN Q6HRS PRN IV FOR UFH LEVEL 0.2 - 0.29 Last administered on 07/23/16 08:26; Start 07/23/16 at 08:15 Warfarin Sodium 7.5 mg 7.5 mg 1X WARF ONCE PO Last administered on 07/23/16 16:53; Start 07/23/16 at 16:00; Stop 07/23/16 at 16:01; Status DC Potassium Chloride 50 ml @ 50 mls/hr Q1H IV Last administered on 07/23/16 13: 39; Start 07/23/16 at 11:00; Stop 07/23/16 at 12:59; Status DC Amino Acids/ Electrolytes/ Dextrose (Clinimix E 4.25%-5% Solution) 1,000 ml @ 80 mls/hr [id number] IV Last administered on 07/24/16 02:31; Start 07/23/16 at 12: 00 Atorvastatin Calcium (Lipitor) 40 mg STK-MED ONCE .ROUTE ; Start 07/23/16 at 20: 33; Stop 07/23/16 at 20:34; Status DC Active Scripts Active Levemir Flextouch (Insulin Detemir) 100 Unit/1 Ml Insuln.pen 20 Units SQ QHS 30 Days Novolog Flexpen (Insulin Aspart) 100 Unit/1 Ml Insuln.pen 10 Units SQ TIDAC 30 Days Reported Advair 100-50 Diskus (Fluticasone/Salmeterol) 1 Each Disk.w.dev 1 Puff IH BID Spiriva Respimat (Tiotropium [place]) 4 Gm Mist.inhal 2.5 Gm IH DAILY Symbicort 160-4.5 Mcg Inhaler (Budesonide/Formoterol Fumarate) 10.2 Gm Hfa.aer.ad 2 Puff IH BID Atorvastatin Calcium 20 Mg Tablet 20 Mg PO HS Lisinopril-Hctz 10-12.5 Mg Tab (Lisinopril/Hydrochlorothiazide) 1 Each Tablet 1 Tab PO DAILY Isosorbide Mononitrate Er (Isosorbide Mononitrate) 120 Mg Tab.er.24h 120 Mg PO DAILY Novolin N (Nph, Human Insulin Isophane) 100 Unit/1 Ml Vial 0 SQ Promethazine-Codeine Syrup (Promethazine Hcl/Codeine) 118 Ml Syrup 5 Ml PO Q4- 6HRS Diltiazem 24HR Cd (Diltiazem Hcl) 240 Mg Cap.er.24h 240 Mg PO DAILY NITROGLYCERIN SubLingual (Nitroglycerin) 0.4 Mg Tab.subl 0.4 Mg SL PRN Q5MIN PRN Atorvastatin Calcium 40 Mg Tablet 40 Mg PO HS Vitals/I & O Vital Sign - Last 24 Hours 07/23/16 07/23/16 07/23/16 07/23/16 12:00 12:00 12:18 12:52 Temp 98.5 98.5 Pulse 86 81 Resp 28 B/P 173/72 181/88 Pulse Ox 93 99 O2 Delivery Nasal Cannula Nasal Cannula Venturi Mask O2 Flow Rate 4.0 4.0 3.5 07/23/16 07/23/16 07/23/16 07/23/16 13:00 14:00 14:45 15:00 Pulse 80 76 72 Resp 24 28 23 26 B/P 186/82 188/92 184/88 Pulse Ox 95 100 100 100 O2 Delivery Nasal Cannula Nasal Cannula Nasal Cannula Nasal Cannula O2 Flow Rate 4.0 4.0 4.0 4.0 07/23/16 07/23/16 07/23/16 07/23/16 15:40 16:00 16:00 16:53 Temp 98.3 98.3 Pulse 74 71 Resp 22 B/P 191/94 189/87 Pulse Ox 99 100 O2 Delivery Venturi Mask Nasal Cannula Nasal Cannula O2 Flow Rate 3.5 4.0 4.0 07/23/16 07/23/16 07/23/16 07/23/16 17:00 18:00 18:14 19:00 Pulse 70 82 75 75 Resp B/P 181/68 169/75 169/75 178/81 Pulse Ox 100 99 99 O2 Delivery Nasal Cannula Nasal Cannula Nasal Cannula O2 Flow Rate 4.0 4.0 4.0 07/23/16 07/23/16 07/23/16 07/23/16 19:26 19:39 20:00 20:46 Temp 98.7 98.7 Pulse 83 77 Resp B/P 182/83 183/78 Pulse Ox 99 100 O2 Delivery Nasal Cannula Nasal Cannula Nasal Cannula O2 Flow Rate 3.5 4.0 4.0 07/23/16 07/23/16 07/23/16 07/23/16 20:46 21:00 22:00 23:00 Pulse 75 82 90 Resp 24 19 14 B/P 177/85 155/57 174/70 Pulse Ox 100 100 96 98 O2 Delivery Nasal Cannula Nasal Cannula Nasal Cannula Nasal Cannula O2 Flow Rate 4.0 4.0 4.0 4.0 07/23/16 07/23/16 07/23/16 07/24/16 23:33 23:33 23:44 00:00 Temp 98.8 98.8 Pulse 90 66 Resp 21 B/P 183/87 182/81 Pulse Ox 100 100 O2 Delivery Nasal Cannula Nasal Cannula Nasal Cannula O2 Flow Rate 4.0 4.0 4.0 07/24/16 07/24/16 07/24/16 07/24/16 01:00 02:00 02:30 03:00 Pulse 85 82 85 96 Resp 30 B/P 192/82 196/87 192/82 194/78 Pulse Ox 98 99 99 O2 Delivery Nasal Cannula Nasal Cannula Nasal Cannula O2 Flow Rate 4.0 4.0 4.0 07/24/16 07/24/16 07/24/16 07/24/16 04:00 04:00 05:00 05:20 Temp 98.7 98.7 Pulse 87 86 Resp 28 26 B/P 188/84 171/71 Pulse Ox 99 99 97 O2 Delivery Nasal Cannula Nasal Cannula Nasal Cannula Nasal Cannula O2 Flow Rate 4.0 4.0 4.0 3.5 07/24/16 07/24/16 07/24/16 07/24/16 05:27 06:00 07:27 07:57 Pulse 80 69 Resp 30 18 18 B/P 186/84 170/76 Pulse Ox 99 100 100 O2 Delivery Nasal Cannula Nasal Cannula Nasal Cannula O2 Flow Rate 4.0 4.0 4.0 07/24/16 07/24/16 08:02 09:45 Resp 18 Pulse Ox 99 100 O2 Delivery Nasal Cannula Nasal Cannula O2 Flow Rate 3.5 4.0 Intake and Output 07/23/16 07/23/16 07/24/16 15:00 23:00 07:00 Intake Total 200 ml 2189 ml Output Total 650 ml 493 ml 264 ml Balance -650 ml -293 ml 1925 ml JUHI FRANCIS III DO Jul 24, 2016 11:18
[2016-07-24] MEDS ORDERED: HEPARIN for IV BOLUS 10,000 UNIT/10 ML VIAL. IV PRN ×2 (13:37→13:39)
--- NOTE | 2016-07-24 14:35 | PDOC ---
SUBJECTIVE ROS F/u pfor ^Na Doing better overall, Speech eval pending OBJECTIVE Vital Signs Vital Signs Date Time Temp Pulse Resp B/P Pulse Ox O2 Delivery O2 Flow Rate FiO2 07/24/16 13:02 64 173/100 07/24/16 11:58 98 Nasal Cannula 1.0 07/24/16 10:15 18 07/24/16 04:00 98.7 98.7 I & 0 Intake and Output 07/24/16 07:00 Intake Total 2389 ml Output Total 1407 ml Balance 982 ml IV Total 1106 ml Tube Feeding 918 ml Other 365 ml Output Urine Total 1207 ml Gastric Drainage Total 0 ml Emesis 200 ml # Bowel Movements 2 PHYSICAL EXAM Physical Exam General Appearance: Awake: Alert Oriented x 1-2 Neck: No JVD or JVP Chest: CTA Evan Heart: S1 S2 Abdomen - Soft NTND Extremities - No Edema DIAGNOSIS/ASSESSMENT Assessment & Plan ^Na - ct Hypotonic fluids - PPN HTN - Catapress #2 Problems: COMMENT/RELEVANT DATA Meds Current Medications Medications (Trade) Dose Ordered Sig/Ann Marie Start Time Stop Time Status Last Admin Dose Admin Albumin Human (Plasmanate) 500 ml @ 125 mls/hr PRN Q6HRS PRN 07/16/16 08:30 07/17/16 08:12 125 MLS/HR Albuterol Sulfate (Ventolin Neb Soln) 2.5 mg PRN Q2HR PRN 07/12/16 16:00 07/24/16 05:20 2.5 MG Albuterol/ Ipratropium (Duoneb) 3 ml QID 07/12/16 17:00 UNV Alteplase, Recombinant (Activase) 100 ml @ 50 mls/hr 1X ONCE 07/15/16 17:30 07/15/16 19:29 DC 07/15/16 17:30 50 MLS/HR Amino Acids/ Electrolytes/ Dextrose (Clinimix E 4.25%-5% Solution) 1,000 ml @ 80 mls/hr [id number] 07/23/16 12:00 07/24/16 02:31 80 MLS/HR Atorvastatin Calcium (Lipitor) 40 mg HS 07/24/16 21:00 Atropine Sulfate 1 mg STK-MED ONCE 07/18/16 09:43 07/19/16 08:53 DC Atropine Sulfate 0.5 mg 0.5 mg STK-MED ONCE 07/18/16 09:43 07/18/16 09:44 DC Benzocaine (Hurricaine One) 1 spray STK-MED ONCE 07/12/16 12:00 07/13/16 16:00 DC Budesonide (Pulmicort) 0.5 mg RTBID 07/12/16 20:00 07/13/16 11:27 DC 07/13/16 07:30 0.5 MG Calcium Chloride 2,000 mg STK-MED ONCE 07/16/16 13:02 07/17/16 13:03 DC Ceftriaxone Sodium/Sodium Chloride (Rocephin/Iv Sodium Chloride 0.9% 50ml) 50 ml @ 100 mls/hr Q24H 07/14/16 12:00 07/20/16 12:29 DC 07/19/16 12:25 100 MLS/HR Chlorhexidine Gluconate (Peridex) 15 ml BID 07/13/16 09:00 07/23/16 09:42 DC 07/23/16 08:22 15 ML Dextrose (Dextrose 50%-Water Syringe) 12.5 gm PRN Q15MIN PRN 07/24/16 13:40 Dextrose 12.5 gm 12.5 gm PRN Q15MIN PRN 07/19/16 10:30 07/24/16 13:40 DC Diltiazem HCl (Cardizem 24hr Cd) 240 mg DAILY 07/15/16 09:00 07/16/16 07:39 DC Diphenhydramine HCl (Benadryl) 25 mg PRN Q6HRS PRN 07/23/16 04:47 Docusate Sodium (Colace) 100 mg BID 07/21/16 21:00 07/23/16 20:45 100 MG Dopamine HCl/ Dextrose 400 mg STK-MED ONCE 07/15/16 11:00 07/16/16 08:06 DC Enoxaparin Sodium (Lovenox 40mg Syringe) 40 mg DAILY 07/12/16 16:30 07/15/16 14:28 DC 07/15/16 08:54 40 MG Epinephrine HCl 4 mg STK-MED ONCE 07/16/16 13:02 07/17/16 13:03 DC Fentanyl Citrate (Fentanyl 2ml Vial) 50 mcg PRN Q2HR PRN 07/22/16 04:45 07/24/16 07:27 50 MCG Fentanyl Citrate (Fentanyl 600 Mcg/30 ml STAGE RIGGER) 30 ml @ 0 mls/hr CONT PRN 07/16/16 07:15 07/24/16 09:45 1.25 MLS/HR Furosemide (Lasix) 40 mg 1X ONCE 07/17/16 16:45 07/17/16 16:47 DC 07/17/16 16:45 40 MG Glycopyrrolate (Robinul) 1 mg STK-MED ONCE 07/12/16 15:00 07/13/16 08:54 DC Guaifenesin (Mucinex) 600 mg BID 07/15/16 09:00 07/16/16 07:39 DC Heparin Sodium (Porcine) (Heparin Sodium) 1,600 unit PRN Q6HRS PRN 07/24/16 13:39 Heparin Sodium (Porcine) 2500 unit 2,500 unit 1X ONCE 07/16/16 09:15 07/16/16 09:16 DC 07/16/16 10:44 2,500 UNIT Heparin Sodium (Porcine) 7400 unit 7,400 unit 1X ONCE 07/19/16 09:45 07/19/16 09:53 DC 07/19/16 10:03 7,400 UNIT Heparin Sodium/ Dextrose 500 ml @ 0 mls/hr CONT PRN 07/19/16 09:45 07/24/16 04:44 25.2 MLS/HR Heparin Sodium/ Sodium Chloride 1,000 unit 1X ONCE 07/17/16 11:15 07/17/16 11:26 DC 07/17/16 11:27 1,000 UNIT Heparin Sodium/ Sodium Chloride 1000 unit 1,000 unit 1X ONCE 07/15/16 12:00 07/15/16 12:01 DC Hydralazine HCl (Apresoline) 10 mg PRN Q4HRS PRN 07/14/16 22:30 07/24/16 13:01 10 MG Hydrochlorothiazide (Microzide) 12.5 mg DAILY 07/15/16 09:00 07/16/16 07:39 DC Hydrocortisone Sodium Succinate (Solu-Cortef) 50 mg Q8HRS 07/19/16 14:00 07/24/16 05:27 50 MG Info (Anti-Coagulation Monitoring By Pharmacy) 1 each PRN DAILY PRN 07/16/16 08:45 Cancel Info (Do NOT chart on this entry -- for MONITORING) 1 each PRN DAILY PRN 07/17/16 11:30 07/19/16 11:29 DC Info 1 each 1 each PRN DAILY PRN 07/14/16 09:30 07/19/16 16:30 DC 07/18/16 08:27 1 EACH Insulin Aspart (Novolog) 0-9 UNITS Q6HRS 07/21/16 13:00 07/24/16 05:28 5 UNITS Insulin Aspart 10 units 10 units 1X ONCE 07/12/16 19:45 07/12/16 19:46 DC 07/12/16 19:41 10 UNITS Insulin Aspart 20 units 20 units 1X ONCE 07/18/16 08:15 07/18/16 11:56 DC 07/18/16 10:02 20 UNITS Insulin Detemir (Levemir) 25 units QHS 07/21/16 21:00 07/23/16 20:47 25 UNITS Insulin Human Regular (Novolin R Vial) 10 unit 1X ONCE 07/12/16 13:15 07/12/16 13:16 DC 07/12/16 13:16 10 UNIT Insulin Human Regular 150 unit/ Sodium Chloride 151.5 ml @ 0 mls/hr CONT PRN 07/18/16 11:45 07/19/16 10:27 DC 07/18/16 13:54 13.3 MLS/HR Insulin Human Regular/Sodium Chloride (Novolin R Vial/ Iv Normal Saline 150ml) 151.5 ml @ 0 mls/hr CONT PRN 07/14/16 09:30 07/15/16 07:58 DC 07/14/16 10:01 3.9 MLS/HR Iohexol (Omnipaque 300 Mg/ml) 40 ml 1X ONCE 07/17/16 11:15 07/17/16 11:26 DC 07/17/16 11:26 40 ML Ipratropium [place] (Atrovent) 0.5 mg RTQID 07/16/16 12:00 07/24/16 11:58 0.5 MG Isosorbide Mononitrate (Imdur) 120 mg DAILY 07/15/16 09:00 07/16/16 07:39 DC Ketamine HCl 500 mg STK-MED ONCE 07/12/16 18:30 07/13/16 12:05 DC Lidocaine HCl 10 ml 1X ONCE 07/15/16 12:00 07/15/16 12:01 DC 07/15/16 11:57 10 ML Lidocaine HCl 20 ml 20 ml STK-MED ONCE 07/15/16 10:45 07/15/16 10:46 DC Lidocaine HCl 5 margie 5 margie STK-MED ONCE 07/12/16 12:00 07/13/16 16:00 DC Lidocaine/Sodium Bicarbonate (Buffered Lidocaine 1%) 3 ml 1X ONCE 07/17/16 11:15 07/17/16 11:26 DC 07/17/16 11:15 3 ML Magnesium Sulfate/ Dextrose 50 ml @ 25 mls/hr PRN DAILY PRN 07/14/16 11:15 07/15/16 07:58 DC Methylprednisolone Sodium Succinate (Solu-Medrol 40mg Vial) 60 mg DAILY 07/13/16 09:00 07/13/16 09:00 DC Methylprednisolone Sodium Succinate (Solu-Medrol 125mg Vial) 125 mg DAILY 07/15/16 09:00 07/16/16 08:35 DC 07/15/16 08:55 125 MG Metoprolol Tartrate (Lopressor) 5 mg Q6HRS 07/22/16 12:30 07/24/16 13:02 5 MG Midazolam HCl (Versed 100mg/ 100ml Premix) 100 ml @ As Directed STK-MED ONCE 07/15/16 11:03 07/15/16 11:04 DC Midazolam HCl (Versed) 4 mg PRN Q1HR PRN 07/22/16 04:47 07/22/16 05:33 4 MG Midazolam HCl 1 mg 1 mg PRN Q1HR PRN 07/20/16 11:15 07/22/16 04:46 DC Multi-Ingred Cream/Lotion/Oil/ Oint (Artificial Tears Eye Oint) 1 margie PRN Q1HR PRN 07/13/16 11:00 07/13/16 15:45 1 MARGIE Mupirocin (Bactroban) 1 margie BID 07/15/16 09:00 07/24/16 07:59 1 MARGIE Non-Formulary Medication 2.5 gm DAILY 07/13/16 09:00 UNV Norepinephrine Bitartrate/Sodium Chloride (Levophed Vial/ Iv Sodium Chloride 0.9% 250ml) 258 ml @ 0 mls/hr CONT PRN 07/15/16 11:00 07/17/16 00:51 25.15 MLS/HR Oxymetazoline HCl (Afrin) 2 spray 1X ONCE 07/12/16 18:30 07/12/16 18:31 DC Pantoprazole Sodium (Protonix Vial) 40 mg DAILYAC 07/23/16 04:47 07/24/16 07:59 40 MG Pantoprazole Sodium/Sodium Chloride (Protonix Iv/Iv Sodium Chloride 0.9% 100ml) 100 ml @ 10 mls/hr Q10H 07/17/16 06:45 07/21/16 12:21 DC 07/21/16 10:10 10 MLS/HR Potassium Acetate/ Magnesium Sulfate/ Calcium Gluconate/ Multivitamins/ Chromium/Copper/ Manganese/Seleni/ Zn/Insulin Human Regular/Total Parenteral Nutrition/Amino Acids/Dextrose/ Fat Emulsion Intravenous (Calcium Gluconate/ Infuvite Adult/ Multitrace-5 Conc/ Novolin R Vial/ Tpn - Tpn Flu... 1,200 ml @ 50 mls/hr TPN CONT 07/19/16 22:00 07/19/16 22:00 DC Potassium Chloride 50 ml @ 50 mls/hr Q1H 07/23/16 11:00 07/23/16 12:59 DC 07/23/16 13:39 50 MLS/HR Potassium Chloride (KCl Premix 20meq) 50 ml @ 25 mls/hr Q2H 07/19/16 09:30 07/19/16 13:29 DC 07/19/16 11:09 25 MLS/HR Prednisone (Prednisone) 60 mg 1X ONCE 07/12/16 12:30 07/12/16 12:31 DC 07/12/16 12:40 60 MG Promethazine HCl/ Codeine (Phenergan With Codeine) 5 ml QID 07/12/16 17:00 07/13/16 17:18 DC Propofol (Diprivan) 1,000 mg STK-MED ONCE 07/17/16 16:36 07/19/16 08:22 DC Rocuronium [place] (Zemuron) 50 mg STK-MED ONCE 07/12/16 15:00 07/13/16 08:54 DC Scopolamine (Transderm-Scop) 1 patch Q3DAYS 07/18/16 09:00 07/24/16 07:59 1 PATCH Scopolamine 1 patch 1 patch ONCE ONCE 07/15/16 23:30 07/15/16 23:31 DC Sodium Bicarbonate 50 meq 50 meq 1X ONCE 07/15/16 16:30 07/15/16 16:34 DC 07/15/16 16:30 50 MEQ Sodium Polystyrene Sulfonate (Kayexalate) 30 gm 1X ONCE 07/15/16 08:00 07/15/16 08:08 DC Sodium Polystyrene Sulfonate 30 gm 30 gm 1X ONCE 07/16/16 08:30 07/16/16 08:34 DC 07/16/16 08:41 30 GM Sodium Acetate/ Potassium Acetate/ Magnesium Sulfate/ Calcium Gluconate/ Multivitamins/ Chromium/Copper/ Manganese/Seleni/ Zn/Insulin Human Regular/Total Parenteral Nutrition/Amino Acids/Dextrose/ Fat Emulsion Intravenous (Calcium Gluconate/ Infuvite Adult/ Multitrace-5 Conc/ Novolin R Vi... 1,512 ml @ 63 mls/hr TPN CONT 07/18/16 22:00 07/19/16 21:59 DC 07/18/16 22:03 63 MLS/HR Sodium Bicarbonate 50 meq 1X ONCE 07/16/16 08:45 07/16/16 08:46 DC 07/16/16 08:41 50 MEQ Sodium Chloride (Iv Sodium Chloride 0.9% 1000ml Bag) 1,000 ml @ 75 mls/hr [id number] 07/20/16 11:15 07/23/16 11:50 DC 07/23/16 05:31 75 MLS/HR Sodium Chloride 40 meq/Sodium Acetate 40 meq/ Magnesium Sulfate 8 meq/Calcium Gluconate 5 meq/ Multivitamins 10 ml/Chromium/ Copper/Manganese/ Seleni/Zn 1 ml/ Insulin Human Regular 10 unit/ Total Parenteral Nutrition/Amino Acids/Dextrose/ Fat Emulsion Intravenous 1,512 ml @ 63 mls/hr TPN CONT 07/16/16 22:00 07/17/16 21:59 DC 07/16/16 21:53 63 MLS/HR Sodium Chloride/ Magnesium Sulfate/ Calcium Gluconate/ Multivitamins/ Chromium/Copper/ Manganese/Seleni/ Zn/Total Parenteral Nutrition/Amino Acids/Dextrose (Sodium Chloride/ Infuvite Adult/ Multitrace-5 Conc/ Tpn - Tpn Fluid/ Trophamine/ Dextrose 70%-Water Iv Soln) 1,512 ml @ 63 mls/hr TPN CONT 07/15/16 22:00 07/16/16 21:59 DC 07/15/16 21:27 63 MLS/HR Succinylcholine Chloride (Anectine) 200 mg STK-MED ONCE 07/12/16 18:00 07/13/16 09:05 DC Vasopressin 40 unit/Dextrose 102 ml @ 6 mls/hr CONT PRN 07/16/16 05:00 07/17/16 13:33 6 MLS/HR Vecuronium [place] 10 mg 10 mg STK-MED ONCE 07/15/16 11:03 07/15/16 11:04 DC Vecuronium [place]/Dextrose (Norcuron) 100 ml @ 0 mls/hr CONT PRN 07/12/16 21:00 07/14/16 09:31 DC 07/13/16 20:48 2.58 MLS/HR Vecuronium [place] (Norcuron Bolus) 10 mg STK-MED ONCE 07/15/16 11:00 07/16/16 08:06 DC Warfarin Sodium (Coumadin Per Pharmacy) 1 each PRN DAILY PRN 07/19/16 09:45 07/24/16 12:21 1 EACH Warfarin Sodium (Coumadin) 5 mg 1X WARF ONCE 07/24/16 16:00 07/24/16 16:01 Warfarin Sodium 7.5 mg 7.5 mg 1X WARF ONCE 07/23/16 16:00 07/23/16 16:01 DC 07/23/16 16:53 7.5 MG Lab Laboratory Tests Test 07/23/16 14:45 07/23/16 18:15 07/23/16 20:38 07/23/16 20:40 Heparin Anti-Xa Act, Unfractionated 0.50IU/mL (0.30-0.70) 0.51IU/mL (0.30-0.70) Glucose (Fingerstick) 182mg/dL (70-99) 277mg/dL (70-99) Test 07/24/16 05:21 07/24/16 05:25 07/24/16 13:08 Glucose (Fingerstick) 204mg/dL (70-99) 184mg/dL (70-99) White Blood Count 18.7x10^3/uL (4.0-11.0) Red Blood Count 3.45x10^6/uL (4.30-5.70) Hemoglobin 9.7g/dL (13.0-17.5) Hematocrit 30.7% (39.0-53.0) Mean Corpuscular Volume 89fL (79-100) Mean Corpuscular Hemoglobin 28pg (25-35) Mean Corpuscular Hemoglobin Concent 32g/dL (31-37) Red Cell Distribution Width 15.2% (11.5-14.5) Platelet Count 201x10^3/uL (140-400) Neutrophils (%) (Auto) 85% (31-73) Lymphocytes (%) (Auto) 5% (24-48) Monocytes (%) (Auto) 10% (0-9) Eosinophils (%) (Auto) 0% (0-3) Basophils (%) (Auto) 0% (0-3) Neutrophils # (Auto) 15.8x10^3uL (1.8-7.7) Lymphocytes # (Auto) 0.9x10^3/uL (1.0-4.8) Monocytes # (Auto) 1.9x10^3/uL (0.0-1.1) Eosinophils # (Auto) 0.0x10^3/uL (0.0-0.7) Basophils # (Auto) 0.1x10^3/uL (0.0-0.2) Prothrombin Time 22.4SEC (11.7-14.0) Prothromb Time International Ratio 2.1 (0.8-1.1) Heparin Anti-Xa Act, Unfractionated 0.42IU/mL (0.30-0.70) Sodium Level 150mmol/L (136-145) Potassium Level 3.9mmol/L (3.5-5.1) Chloride Level 114mmol/L (98-107) Carbon Dioxide Level 28mmol/L (21-32) Anion Gap 8 (6-14) Blood Urea Nitrogen 45mg/dL (8-26) Creatinine 1.0mg/dL (0.7-1.3) Estimated GFR (Cockcroft-Gault) 88.6 Glucose Level 237mg/dL (70-99) Calcium Level 8.6mg/dL (8.5-10.1) FELIBERTO GIL MD Jul 24, 2016 14:35
[2016-07-24] MEDS ORDERED: CLONIDINE TTS-2 PATCH TD SCH (15:00)
[2016-07-24] MEDS ORDERED: WARFARIN 5 MG TABLET. PO ONE (16:00)
[2016-07-24] MEDS: ATORVASTATIN CALCIUM 40 MG TABLET. PO SCH (19:59)
[2016-07-24] MEDS: INSULIN DETEMIR 300 UNITS/3 ML INSULN.PEN. SQ SCH (21:24)
[2016-07-25] VITALS (24 sets, daily range): BP systolic 127–199; BP diastolic 55–103
[2016-07-25] MEDS: HEPARIN 25,000UTS/500ML PREMIX 500 ML IV PRN (01:58)
[2016-07-25] MEDS: hydrALAZINE 20 MG/ML VIAL. IVP PRN ×2 (02:40→08:30)
[2016-07-25] MEDS: AA 4.25%/CALCIUM/LYTES/D5W 1,000 ML IV SCH (03:30)
[2016-07-25] MEDS: METOPROLOL TARTRATE 5 MG/5 ML VIAL. IVP SCH ×4 (05:38→23:42)
[2016-07-25] MEDS: INSULIN ASPART 300 UNITS/3 ML INSULN.PEN SQ SCH ×4 (05:38→23:42)
[2016-07-25 05:52] LABS: BASO # 0.1 x10^3/uL (0.0-0.2); BASO % 1 % (0-3); EOS % 0 % (0-3); HEMATOCRIT 31.5 % (39.0-53.0); HEMOGLOBIN 10.2 g/dL (13.0-17.5); LYMPH # 1.3 x10^3/uL (1.0-4.8); LYMPH % 7 % (24-48); MEAN CORPUSCULAR HEMOGLOBIN 28 pg (25-35); MEAN CORPUSCULAR HGB CONC 32 g/dL (31-37); MEAN CORPUSCULAR VOLUME 87 fL (79-100); MONO % 8 % (0-9); NEUT % 84 % (31-73); PLATELET COUNT 220 x10^3/uL (140-400); RED BLOOD COUNT 3.62 x10^6/uL (4.30-5.70); RED CELL DISTRIBUTION WIDTH 15.2 % (11.5-14.5); WHITE BLOOD COUNT 18.7 x10^3/uL (4.0-11.0)
--- NOTE | 2016-07-25 06:25 | PDOC ---
SUBJECTIVE ROS F/up ^Na doing same overall Labs from this am are pneding OBJECTIVE Vital Signs Vital Signs Date Time Temp Pulse Resp B/P Pulse Ox O2 Delivery O2 Flow Rate FiO2 07/25/16 06:00 63 29 169/79 96 Room Air 07/25/16 05:00 2.0 07/25/16 04:00 98.1 98.1 I & 0 Intake and Output 07/25/16 07:00 Intake Total 2644 ml Output Total 2720 ml Balance -76 ml Other 2644 ml Output Urine Total 2720 ml PHYSICAL EXAM Physical Exam General Appearance: Awake: Alert Oriented x 1-2 Neck: No JVD or JVP Chest: CTA Evan Heart: S1 S2 Abdomen - Soft NTND Extremities - No Edema DIAGNOSIS/ASSESSMENT Assessment & Plan ^Na - ct Hypotonic fluids - PPN HTN - Catapress #2 Labs pending from this am COMMENT/RELEVANT DATA Meds Current Medications Medications (Trade) Dose Ordered Sig/Ann Marie Start Time Stop Time Status Last Admin Dose Admin Albumin Human (Plasmanate) 500 ml @ 125 mls/hr PRN Q6HRS PRN 07/16/16 08:30 07/24/16 14:38 DC 07/17/16 08:12 125 MLS/HR Albuterol Sulfate (Ventolin Neb Soln) 2.5 mg PRN Q2HR PRN 07/12/16 16:00 07/24/16 05:20 2.5 MG Albuterol/ Ipratropium (Duoneb) 3 ml QID 07/12/16 17:00 UNV Alteplase, Recombinant (Activase) 100 ml @ 50 mls/hr 1X ONCE 07/15/16 17:30 07/15/16 19:29 DC 07/15/16 17:30 50 MLS/HR Amino Acids/ Electrolytes/ Dextrose (Clinimix E 4.25%-5% Solution) 1,000 ml @ 80 mls/hr [id number] 07/23/16 12:00 07/25/16 03:30 80 MLS/HR Atorvastatin Calcium (Lipitor) 40 mg HS 07/24/16 21:00 Atropine Sulfate 1 mg STK-MED ONCE 07/18/16 09:43 07/19/16 08:53 DC Atropine Sulfate 0.5 mg 0.5 mg STK-MED ONCE 07/18/16 09:43 07/18/16 09:44 DC Benzocaine (Hurricaine One) 1 spray STK-MED ONCE 07/12/16 12:00 07/13/16 16:00 DC Budesonide (Pulmicort) 0.5 mg RTBID 07/12/16 20:00 07/13/16 11:27 DC 07/13/16 07:30 0.5 MG Calcium Chloride 2,000 mg STK-MED ONCE 07/16/16 13:02 07/17/16 13:03 DC Ceftriaxone Sodium/Sodium Chloride (Rocephin/Iv Sodium Chloride 0.9% 50ml) 50 ml @ 100 mls/hr Q24H 07/14/16 12:00 07/20/16 12:29 DC 07/19/16 12:25 100 MLS/HR Chlorhexidine Gluconate (Peridex) 15 ml BID 07/13/16 09:00 07/23/16 09:42 DC 07/23/16 08:22 15 ML Clonidine HCl (Catapres Tts-2) 1 patch WEEKLY 07/24/16 15:00 07/24/16 19:05 1 PATCH Dextrose (Dextrose 50%-Water Syringe) 12.5 gm PRN Q15MIN PRN 07/24/16 13:40 Dextrose 12.5 gm 12.5 gm PRN Q15MIN PRN 07/19/16 10:30 07/24/16 13:40 DC Diltiazem HCl (Cardizem 24hr Cd) 240 mg DAILY 07/15/16 09:00 07/16/16 07:39 DC Diphenhydramine HCl (Benadryl) 25 mg PRN Q6HRS PRN 07/23/16 04:47 Docusate Sodium (Colace) 100 mg BID 07/21/16 21:00 07/23/16 20:45 100 MG Dopamine HCl/ Dextrose 400 mg STK-MED ONCE 07/15/16 11:00 07/16/16 08:06 DC Enoxaparin Sodium (Lovenox 40mg Syringe) 40 mg DAILY 07/12/16 16:30 07/15/16 14:28 DC 07/15/16 08:54 40 MG Epinephrine HCl 4 mg STK-MED ONCE 07/16/16 13:02 07/17/16 13:03 DC Fentanyl Citrate (Fentanyl 2ml Vial) 50 mcg PRN Q2HR PRN 07/22/16 04:45 07/24/16 07:27 50 MCG Fentanyl Citrate (Fentanyl 600 Mcg/30 ml BROADCAST OPERATIONS MANAGER) 30 ml @ 0 mls/hr CONT PRN 07/16/16 07:15 07/24/16 15:16 2.5 MLS/HR Furosemide (Lasix) 40 mg 1X ONCE 07/17/16 16:45 07/17/16 16:47 DC 07/17/16 16:45 40 MG Glycopyrrolate (Robinul) 1 mg STK-MED ONCE 07/12/16 15:00 07/13/16 08:54 DC Guaifenesin (Mucinex) 600 mg BID 07/15/16 09:00 07/16/16 07:39 DC Heparin Sodium (Porcine) (Heparin Sodium) 1,600 unit PRN Q6HRS PRN 07/24/16 13:39 Heparin Sodium (Porcine) 2500 unit 2,500 unit 1X ONCE 07/16/16 09:15 07/16/16 09:16 DC 07/16/16 10:44 2,500 UNIT Heparin Sodium (Porcine) 7400 unit 7,400 unit 1X ONCE 07/19/16 09:45 07/19/16 09:53 DC 07/19/16 10:03 7,400 UNIT Heparin Sodium/ Dextrose 500 ml @ 0 mls/hr CONT PRN 07/19/16 09:45 07/25/16 01:58 25.2 MLS/HR Heparin Sodium/ Sodium Chloride 1,000 unit 1X ONCE 07/17/16 11:15 07/17/16 11:26 DC 07/17/16 11:27 1,000 UNIT Heparin Sodium/ Sodium Chloride 1000 unit 1,000 unit 1X ONCE 07/15/16 12:00 07/15/16 12:01 DC Hydralazine HCl (Apresoline) 20 mg PRN Q4HRS PRN 07/24/16 14:45 07/25/16 02:40 20 MG Hydrochlorothiazide (Microzide) 12.5 mg DAILY 07/15/16 09:00 07/16/16 07:39 DC Hydrocortisone Sodium Succinate (Solu-Cortef) 50 mg BID 07/24/16 21:00 07/24/16 21:20 50 MG Info (Anti-Coagulation Monitoring By Pharmacy) 1 each PRN DAILY PRN 07/16/16 08:45 Cancel Info (Do NOT chart on this entry -- for MONITORING) 1 each PRN DAILY PRN 07/17/16 11:30 07/19/16 11:29 DC Info 1 each 1 each PRN DAILY PRN 07/14/16 09:30 07/19/16 16:30 DC 07/18/16 08:27 1 EACH Insulin Aspart (Novolog) 0-9 UNITS Q6HRS 07/21/16 13:00 07/24/16 05:28 5 UNITS Insulin Aspart 10 units 10 units 1X ONCE 07/12/16 19:45 07/12/16 19:46 DC 07/12/16 19:41 10 UNITS Insulin Aspart 20 units 20 units 1X ONCE 07/18/16 08:15 07/18/16 11:56 DC 07/18/16 10:02 20 UNITS Insulin Detemir (Levemir) 25 units QHS 07/21/16 21:00 07/24/16 21:24 25 UNITS Insulin Human Regular (Novolin R Vial) 10 unit 1X ONCE 07/12/16 13:15 07/12/16 13:16 DC 07/12/16 13:16 10 UNIT Insulin Human Regular 150 unit/ Sodium Chloride 151.5 ml @ 0 mls/hr CONT PRN 07/18/16 11:45 07/19/16 10:27 DC 07/18/16 13:54 13.3 MLS/HR Insulin Human Regular/Sodium Chloride (Novolin R Vial/ Iv Normal Saline 150ml) 151.5 ml @ 0 mls/hr CONT PRN 07/14/16 09:30 07/15/16 07:58 DC 07/14/16 10:01 3.9 MLS/HR Iohexol (Omnipaque 300 Mg/ml) 40 ml 1X ONCE 07/17/16 11:15 07/17/16 11:26 DC 07/17/16 11:26 40 ML Ipratropium [place] (Atrovent) 0.5 mg RTQID 07/16/16 12:00 07/24/16 20:10 0.5 MG Isosorbide Mononitrate (Imdur) 120 mg DAILY 07/15/16 09:00 07/16/16 07:39 DC Ketamine HCl 500 mg STK-MED ONCE 07/12/16 18:30 07/13/16 12:05 DC Lidocaine HCl 10 ml 1X ONCE 07/15/16 12:00 07/15/16 12:01 DC 07/15/16 11:57 10 ML Lidocaine HCl 20 ml 20 ml STK-MED ONCE 07/15/16 10:45 07/15/16 10:46 DC Lidocaine HCl 5 margie 5 margie STK-MED ONCE 07/12/16 12:00 07/13/16 16:00 DC Lidocaine/Sodium Bicarbonate (Buffered Lidocaine 1%) 3 ml 1X ONCE 07/17/16 11:15 07/17/16 11:26 DC 07/17/16 11:15 3 ML Magnesium Sulfate/ Dextrose 50 ml @ 25 mls/hr PRN DAILY PRN 07/14/16 11:15 07/15/16 07:58 DC Methylprednisolone Sodium Succinate (Solu-Medrol 40mg Vial) 60 mg DAILY 07/13/16 09:00 07/13/16 09:00 DC Methylprednisolone Sodium Succinate (Solu-Medrol 125mg Vial) 125 mg DAILY 07/15/16 09:00 07/16/16 08:35 DC 07/15/16 08:55 125 MG Metoprolol Tartrate (Lopressor) 5 mg Q6HRS 07/22/16 12:30 07/25/16 05:38 5 MG Midazolam HCl (Versed 100mg/ 100ml Premix) 100 ml @ As Directed STK-MED ONCE 07/15/16 11:03 07/15/16 11:04 DC Midazolam HCl (Versed) 4 mg PRN Q1HR PRN 07/22/16 04:47 07/22/16 05:33 4 MG Midazolam HCl 1 mg 1 mg PRN Q1HR PRN 07/20/16 11:15 07/22/16 04:46 DC Multi-Ingred Cream/Lotion/Oil/ Oint (Artificial Tears Eye Oint) 1 margie PRN Q1HR PRN 07/13/16 11:00 07/13/16 15:45 1 MARGIE Mupirocin (Bactroban) 1 margie BID 07/15/16 09:00 07/24/16 21:20 1 MARGIE Non-Formulary Medication 2.5 gm DAILY 07/13/16 09:00 UNV Norepinephrine Bitartrate/Sodium Chloride (Levophed Vial/ Iv Sodium Chloride 0.9% 250ml) 258 ml @ 0 mls/hr CONT PRN 07/15/16 11:00 07/17/16 00:51 25.15 MLS/HR Oxymetazoline HCl (Afrin) 2 spray 1X ONCE 07/12/16 18:30 07/12/16 18:31 DC Pantoprazole Sodium (Protonix Vial) 40 mg DAILYAC 07/23/16 04:47 07/24/16 07:59 40 MG Pantoprazole Sodium/Sodium Chloride (Protonix Iv/Iv Sodium Chloride 0.9% 100ml) 100 ml @ 10 mls/hr Q10H 07/17/16 06:45 07/21/16 12:21 DC 07/21/16 10:10 10 MLS/HR Potassium Acetate/ Magnesium Sulfate/ Calcium Gluconate/ Multivitamins/ Chromium/Copper/ Manganese/Seleni/ Zn/Insulin Human Regular/Total Parenteral Nutrition/Amino Acids/Dextrose/ Fat Emulsion Intravenous (Calcium Gluconate/ Infuvite Adult/ Multitrace-5 Conc/ Novolin R Vial/ Tpn - Tpn Flu... 1,200 ml @ 50 mls/hr TPN CONT 07/19/16 22:00 07/19/16 22:00 DC Potassium Chloride 50 ml @ 50 mls/hr Q1H 07/23/16 11:00 07/23/16 12:59 DC 07/23/16 13:39 50 MLS/HR Potassium Chloride (KCl Premix 20meq) 50 ml @ 25 mls/hr Q2H 07/19/16 09:30 07/19/16 13:29 DC 07/19/16 11:09 25 MLS/HR Prednisone (Prednisone) 60 mg 1X ONCE 07/12/16 12:30 07/12/16 12:31 DC 07/12/16 12:40 60 MG Promethazine HCl/ Codeine (Phenergan With Codeine) 5 ml QID 07/12/16 17:00 07/13/16 17:18 DC Propofol (Diprivan) 1,000 mg STK-MED ONCE 07/17/16 16:36 07/19/16 08:22 DC Rocuronium [place] (Zemuron) 50 mg STK-MED ONCE 07/12/16 15:00 07/13/16 08:54 DC Scopolamine (Transderm-Scop) 1 patch Q3DAYS 07/18/16 09:00 07/24/16 07:59 1 PATCH Scopolamine 1 patch 1 patch ONCE ONCE 07/15/16 23:30 07/15/16 23:31 DC Sodium Bicarbonate 50 meq 50 meq 1X ONCE 07/15/16 16:30 07/15/16 16:34 DC 07/15/16 16:30 50 MEQ Sodium Polystyrene Sulfonate (Kayexalate) 30 gm 1X ONCE 07/15/16 08:00 07/15/16 08:08 DC Sodium Polystyrene Sulfonate 30 gm 30 gm 1X ONCE 07/16/16 08:30 07/16/16 08:34 DC 07/16/16 08:41 30 GM Sodium Acetate/ Potassium Acetate/ Magnesium Sulfate/ Calcium Gluconate/ Multivitamins/ Chromium/Copper/ Manganese/Seleni/ Zn/Insulin Human Regular/Total Parenteral Nutrition/Amino Acids/Dextrose/ Fat Emulsion Intravenous (Calcium Gluconate/ Infuvite Adult/ Multitrace-5 Conc/ Novolin R Vi... 1,512 ml @ 63 mls/hr TPN CONT 07/18/16 22:00 07/19/16 21:59 DC 07/18/16 22:03 63 MLS/HR Sodium Bicarbonate 50 meq 1X ONCE 07/16/16 08:45 07/16/16 08:46 DC 07/16/16 08:41 50 MEQ Sodium Chloride (Iv Sodium Chloride 0.9% 1000ml Bag) 1,000 ml @ 75 mls/hr [id number] 07/20/16 11:15 07/23/16 11:50 DC 07/23/16 05:31 75 MLS/HR Sodium Chloride 40 meq/Sodium Acetate 40 meq/ Magnesium Sulfate 8 meq/Calcium Gluconate 5 meq/ Multivitamins 10 ml/Chromium/ Copper/Manganese/ Seleni/Zn 1 ml/ Insulin Human Regular 10 unit/ Total Parenteral Nutrition/Amino Acids/Dextrose/ Fat Emulsion Intravenous 1,512 ml @ 63 mls/hr TPN CONT 07/16/16 22:00 07/17/16 21:59 DC 07/16/16 21:53 63 MLS/HR Sodium Chloride/ Magnesium Sulfate/ Calcium Gluconate/ Multivitamins/ Chromium/Copper/ Manganese/Seleni/ Zn/Total Parenteral Nutrition/Amino Acids/Dextrose (Sodium Chloride/ Infuvite Adult/ Multitrace-5 Conc/ Tpn - Tpn Fluid/ Trophamine/ Dextrose 70%-Water Iv Soln) 1,512 ml @ 63 mls/hr TPN CONT 07/15/16 22:00 07/16/16 21:59 DC 07/15/16 21:27 63 MLS/HR Succinylcholine Chloride (Anectine) 200 mg STK-MED ONCE 07/12/16 18:00 07/13/16 09:05 DC Vasopressin 40 unit/Dextrose 102 ml @ 6 mls/hr CONT PRN 07/16/16 05:00 07/24/16 14:38 DC 07/17/16 13:33 6 MLS/HR Vecuronium [place] 10 mg 10 mg STK-MED ONCE 07/15/16 11:03 07/15/16 11:04 DC Vecuronium [place]/Dextrose (Norcuron) 100 ml @ 0 mls/hr CONT PRN 07/12/16 21:00 07/14/16 09:31 DC 07/13/16 20:48 2.58 MLS/HR Vecuronium [place] (Norcuron Bolus) 10 mg STK-MED ONCE 07/15/16 11:00 07/16/16 08:06 DC Warfarin Sodium (Coumadin Per Pharmacy) 1 each PRN DAILY PRN 07/19/16 09:45 07/24/16 12:21 1 EACH Warfarin Sodium (Coumadin) 5 mg 1X WARF ONCE 07/24/16 16:00 07/24/16 16:01 DC Warfarin Sodium 7.5 mg 7.5 mg 1X WARF ONCE 07/23/16 16:00 07/23/16 16:01 DC 07/23/16 16:53 7.5 MG Lab Laboratory Tests Test 07/24/16 13:08 07/24/16 19:02 07/24/16 21:19 07/24/16 23:42 Glucose (Fingerstick) 184mg/dL (70-99) 171mg/dL (70-99) 158mg/dL (70-99) 164mg/dL (70-99) Test 07/25/16 05:30 07/25/16 05:32 White Blood Count 18.7x10^3/uL (4.0-11.0) Red Blood Count 3.62x10^6/uL (4.30-5.70) Hemoglobin 10.2g/dL (13.0-17.5) Hematocrit 31.5% (39.0-53.0) Mean Corpuscular Volume 87fL (79-100) Mean Corpuscular Hemoglobin 28pg (25-35) Mean Corpuscular Hemoglobin Concent 32g/dL (31-37) Red Cell Distribution Width 15.2% (11.5-14.5) Platelet Count 220x10^3/uL (140-400) Neutrophils (%) (Auto) 84% (31-73) Lymphocytes (%) (Auto) 7% (24-48) Monocytes (%) (Auto) 8% (0-9) Eosinophils (%) (Auto) 0% (0-3) Basophils (%) (Auto) 1% (0-3) Neutrophils # (Auto) 15.7x10^3uL (1.8-7.7) Lymphocytes # (Auto) 1.3x10^3/uL (1.0-4.8) Monocytes # (Auto) 1.6x10^3/uL (0.0-1.1) Eosinophils # (Auto) 0.0x10^3/uL (0.0-0.7) Basophils # (Auto) 0.1x10^3/uL (0.0-0.2) Glucose (Fingerstick) 168mg/dL (70-99) FELIBERTO GIL MD Jul 25, 2016 06:25
[2016-07-25 06:48] LABS: CALCIUM 8.5 mg/dL (8.5-10.1); CREATININE 0.9 mg/dL (0.7-1.3); GFR 100.1; POTASSIUM 3.8 mmol/L (3.5-5.1)
[2016-07-25] MEDS: PANTOPRAZOLE IV PUSH 40 MG VIAL. IVP SCH (08:32)
[2016-07-25] MEDS: HYDROCORTISONE SOD SUCC/PF 100 MG/2 ML VIAL. IV SCH ×2 (08:32→21:15)
[2016-07-25] MEDS: DOCUSATE SODIUM 100 MG CAPSULE. PO SCH ×2 (08:32→21:11)
[2016-07-25] MEDS: MUPIROCIN 2 % NASAL OINTMENT 22GM TUBE. NS SCH ×2 (08:33→22:46)
[2016-07-25] MEDS: IPRATROPIUM BROMIDE 0.5 MG/2.5 ML NEBU. NEB SCH ×4 (08:44→20:08)
[2016-07-25] MEDS: FENTANYL STANDARD PCA 30 ML IV PRN ×3 (08:46→17:57)
[2016-07-25 12:02] LABS: INR 2.3 (0.8-1.1); PROTHROMBIN TIME PATIENT 24.2 SEC (11.7-14.0)
--- NOTE | 2016-07-25 12:25 | PDOC ---
PROGRESS NOTES Chief Complaint Chief Complaint Angioedema - angioedema, likely 2/2 to ACEI; self extubated 07/14/16 - resolved - s/p CP arrest (PEA) sec to Multiple bilateral PE (07/15) - Non-occlusive thrombus, R leg (07/15) - COPD exacerbation - Low TSH levels in a critically ill patient - DM2; insulin requiring - Oliguric Hyperkalemic renal failure - Metabolic acidosis s/p arrest - Dyslipidemia on statin - Hypotensive shock, resolved and off pressors - Acute respiratory failure - intubated again (07/15) secondary to code blue ( PEA # 2) History of Present Illness History of Present Illness Pt seen and evaluated in the ICU this AM. Patient sitting upright in chair. No overt signs of respiratory distress, currently on 3L O2 NC saturating at 100%. Discussed case and plan with RN. Patient pending speech/swallow evaluation. Vitals Vitals Vital Signs Date Time Temp Pulse Resp B/P Pulse Ox O2 Delivery O2 Flow Rate FiO2 07/25/16 11:58 95 Room Air 07/25/16 09:16 16 07/25/16 08:30 85 185/96 07/25/16 05:00 2.0 07/25/16 04:00 98.1 98.1 Physical Exam Physical Exam eyes- bilateral periorbital / subconjunctival edema General: Alert, Cooperative, No acute distress Heart: Regular rate, Normal S1, Normal S2, No murmurs, Gallops Lungs: Other (decreased breath sounds bilaterally. ) Abdomen: Normal bowel sounds, Soft, No tenderness, No hepatosplenomegaly, No masses Extremities: No clubbing, No cyanosis, No edema, Normal pulses, No tenderness/ swelling Skin: No rashes, Other (dry mucosal membranes ) Labs LABS Laboratory Tests Test 07/24/16 13:08 07/24/16 19:02 07/24/16 21:19 07/24/16 23:42 Glucose (Fingerstick) 184mg/dL (70-99) 171mg/dL (70-99) 158mg/dL (70-99) 164mg/dL (70-99) Test 07/25/16 05:30 07/25/16 05:32 07/25/16 11:44 White Blood Count 18.7x10^3/uL (4.0-11.0) Red Blood Count 3.62x10^6/uL (4.30-5.70) Hemoglobin 10.2g/dL (13.0-17.5) Hematocrit 31.5% (39.0-53.0) Mean Corpuscular Volume 87fL (79-100) Mean Corpuscular Hemoglobin 28pg (25-35) Mean Corpuscular Hemoglobin Concent 32g/dL (31-37) Red Cell Distribution Width 15.2% (11.5-14.5) Platelet Count 220x10^3/uL (140-400) Neutrophils (%) (Auto) 84% (31-73) Lymphocytes (%) (Auto) 7% (24-48) Monocytes (%) (Auto) 8% (0-9) Eosinophils (%) (Auto) 0% (0-3) Basophils (%) (Auto) 1% (0-3) Neutrophils # (Auto) 15.7x10^3uL (1.8-7.7) Lymphocytes # (Auto) 1.3x10^3/uL (1.0-4.8) Monocytes # (Auto) 1.6x10^3/uL (0.0-1.1) Eosinophils # (Auto) 0.0x10^3/uL (0.0-0.7) Basophils # (Auto) 0.1x10^3/uL (0.0-0.2) Sodium Level 153mmol/L (136-145) Potassium Level 3.8mmol/L (3.5-5.1) Chloride Level 115mmol/L (98-107) Carbon Dioxide Level 28mmol/L (21-32) Anion Gap 10 (6-14) Blood Urea Nitrogen 34mg/dL (8-26) Creatinine 0.9mg/dL (0.7-1.3) Estimated GFR (Cockcroft-Gault) 100.1 Glucose Level 183mg/dL (70-99) Calcium Level 8.5mg/dL (8.5-10.1) Glucose (Fingerstick) 168mg/dL (70-99) Prothrombin Time 24.2SEC (11.7-14.0) Prothromb Time International Ratio 2.3 (0.8-1.1) Heparin Anti-Xa Act, Unfractionated 0.37IU/mL (0.30-0.70) Review of Systems Review of Systems co weakness co hunger Assessment and Plan Assessmemt and Plan Problems Medical Problems: (1) COPD exacerbation Status: Acute (2) Hyperglycemia Status: Acute - S/P resp failure extubated 2 days ago - angioedema, likely 2/2 to ACEI; self extubated 07/14/16 - resolved - s/p CP arrest (PEA) sec to Multiple bilateral PE (07/15) - Non-occlusive thrombus, R leg (07/15) - COPD exacerbation - Low TSH levels in a critically ill patient - DM2; insulin requiring - Oliguric Hyperkalemic renal failure - Metabolic acidosis s/p arrest - Dyslipidemia on statin - Hypotensive shock, resolved and off pressors - Acute respiratory failure - intubated again (07/15) secondary to code blue ( PEA # 2) Plan PT/OT/ST Rechecl labs ICU monitoring Home meds ?SNU? Prognosis residential is guarded Problems: Comment Review of Relevant I have reviewed the following items valerie (where applicable) has been applied. Labs Laboratory Tests Test 07/23/16 12:54 07/23/16 14:45 07/23/16 18:15 07/23/16 20:38 Glucose (Fingerstick) 190mg/dL (70-99) 182mg/dL (70-99) 277mg/dL (70-99) Heparin Anti-Xa Act, Unfractionated 0.50IU/mL (0.30-0.70) Test 07/23/16 20:40 07/24/16 05:21 07/24/16 05:25 07/24/16 13:08 Heparin Anti-Xa Act, Unfractionated 0.51IU/mL (0.30-0.70) 0.42IU/mL (0.30-0.70) Glucose (Fingerstick) 204mg/dL (70-99) 184mg/dL (70-99) White Blood Count 18.7x10^3/uL (4.0-11.0) Red Blood Count 3.45x10^6/uL (4.30-5.70) Hemoglobin 9.7g/dL (13.0-17.5) Hematocrit 30.7% (39.0-53.0) Mean Corpuscular Volume 89fL (79-100) Mean Corpuscular Hemoglobin 28pg (25-35) Mean Corpuscular Hemoglobin Concent 32g/dL (31-37) Red Cell Distribution Width 15.2% (11.5-14.5) Platelet Count 201x10^3/uL (140-400) Neutrophils (%) (Auto) 85% (31-73) Lymphocytes (%) (Auto) 5% (24-48) Monocytes (%) (Auto) 10% (0-9) Eosinophils (%) (Auto) 0% (0-3) Basophils (%) (Auto) 0% (0-3) Neutrophils # (Auto) 15.8x10^3uL (1.8-7.7) Lymphocytes # (Auto) 0.9x10^3/uL (1.0-4.8) Monocytes # (Auto) 1.9x10^3/uL (0.0-1.1) Eosinophils # (Auto) 0.0x10^3/uL (0.0-0.7) Basophils # (Auto) 0.1x10^3/uL (0.0-0.2) Prothrombin Time 22.4SEC (11.7-14.0) Prothromb Time International Ratio 2.1 (0.8-1.1) Sodium Level 150mmol/L (136-145) Potassium Level 3.9mmol/L (3.5-5.1) Chloride Level 114mmol/L (98-107) Carbon Dioxide Level 28mmol/L (21-32) Anion Gap 8 (6-14) Blood Urea Nitrogen 45mg/dL (8-26) Creatinine 1.0mg/dL (0.7-1.3) Estimated GFR (Cockcroft-Gault) 88.6 Glucose Level 237mg/dL (70-99) Calcium Level 8.6mg/dL (8.5-10.1) Test 07/24/16 19:02 07/24/16 21:19 07/24/16 23:42 07/25/16 05:30 Glucose (Fingerstick) 171mg/dL (70-99) 158mg/dL (70-99) 164mg/dL (70-99) White Blood Count 18.7x10^3/uL (4.0-11.0) Red Blood Count 3.62x10^6/uL (4.30-5.70) Hemoglobin 10.2g/dL (13.0-17.5) Hematocrit 31.5% (39.0-53.0) Mean Corpuscular Volume 87fL (79-100) Mean Corpuscular Hemoglobin 28pg (25-35) Mean Corpuscular Hemoglobin Concent 32g/dL (31-37) Red Cell Distribution Width 15.2% (11.5-14.5) Platelet Count 220x10^3/uL (140-400) Neutrophils (%) (Auto) 84% (31-73) Lymphocytes (%) (Auto) 7% (24-48) Monocytes (%) (Auto) 8% (0-9) Eosinophils (%) (Auto) 0% (0-3) Basophils (%) (Auto) 1% (0-3) Neutrophils # (Auto) 15.7x10^3uL (1.8-7.7) Lymphocytes # (Auto) 1.3x10^3/uL (1.0-4.8) Monocytes # (Auto) 1.6x10^3/uL (0.0-1.1) Eosinophils # (Auto) 0.0x10^3/uL (0.0-0.7) Basophils # (Auto) 0.1x10^3/uL (0.0-0.2) Sodium Level 153mmol/L (136-145) Potassium Level 3.8mmol/L (3.5-5.1) Chloride Level 115mmol/L (98-107) Carbon Dioxide Level 28mmol/L (21-32) Anion Gap 10 (6-14) Blood Urea Nitrogen 34mg/dL (8-26) Creatinine 0.9mg/dL (0.7-1.3) Estimated GFR (Cockcroft-Gault) 100.1 Glucose Level 183mg/dL (70-99) Calcium Level 8.5mg/dL (8.5-10.1) Test 07/25/16 05:32 07/25/16 11:44 Glucose (Fingerstick) 168mg/dL (70-99) Prothrombin Time 24.2SEC (11.7-14.0) Prothromb Time International Ratio 2.3 (0.8-1.1) Heparin Anti-Xa Act, Unfractionated 0.37IU/mL (0.30-0.70) Laboratory Tests Test 07/24/16 13:08 07/24/16 19:02 07/24/16 21:19 07/24/16 23:42 Glucose (Fingerstick) 184mg/dL (70-99) 171mg/dL (70-99) 158mg/dL (70-99) 164mg/dL (70-99) Test 07/25/16 05:30 07/25/16 05:32 07/25/16 11:44 White Blood Count 18.7x10^3/uL (4.0-11.0) Red Blood Count 3.62x10^6/uL (4.30-5.70) Hemoglobin 10.2g/dL (13.0-17.5) Hematocrit 31.5% (39.0-53.0) Mean Corpuscular Volume 87fL (79-100) Mean Corpuscular Hemoglobin 28pg (25-35) Mean Corpuscular Hemoglobin Concent 32g/dL (31-37) Red Cell Distribution Width 15.2% (11.5-14.5) Platelet Count 220x10^3/uL (140-400) Neutrophils (%) (Auto) 84% (31-73) Lymphocytes (%) (Auto) 7% (24-48) Monocytes (%) (Auto) 8% (0-9) Eosinophils (%) (Auto) 0% (0-3) Basophils (%) (Auto) 1% (0-3) Neutrophils # (Auto) 15.7x10^3uL (1.8-7.7) Lymphocytes # (Auto) 1.3x10^3/uL (1.0-4.8) Monocytes # (Auto) 1.6x10^3/uL (0.0-1.1) Eosinophils # (Auto) 0.0x10^3/uL (0.0-0.7) Basophils # (Auto) 0.1x10^3/uL (0.0-0.2) Sodium Level 153mmol/L (136-145) Potassium Level 3.8mmol/L (3.5-5.1) Chloride Level 115mmol/L (98-107) Carbon Dioxide Level 28mmol/L (21-32) Anion Gap 10 (6-14) Blood Urea Nitrogen 34mg/dL (8-26) Creatinine 0.9mg/dL (0.7-1.3) Estimated GFR (Cockcroft-Gault) 100.1 Glucose Level 183mg/dL (70-99) Calcium Level 8.5mg/dL (8.5-10.1) Glucose (Fingerstick) 168mg/dL (70-99) Prothrombin Time 24.2SEC (11.7-14.0) Prothromb Time International Ratio 2.3 (0.8-1.1) Heparin Anti-Xa Act, Unfractionated 0.37IU/mL (0.30-0.70) Microbiology 07/15/16 Blood Culture - Final, Complete NO GROWTH AFTER 5 DAYS 07/14/16 Urine Culture - Final, Complete 07/14/16 Urine Culture Result 1 (MARÍA) - Final, Complete 07/14/16 Urine Culture Result 2 (MARÍA) - Final, Complete 07/14/16 Antimicrobic Susceptibility - Final, Complete Medications Current Medications Albuterol/ Ipratropium (Duoneb) 6 ml 1X ONCE NEB Last administered on 12:34; Start 07/12/16 at 12:30; Stop 07/12/16 at 12:31; Status DC Prednisone 60 mg 60 mg 1X ONCE PO Last administered on 07/12/16 12:40; Start 07/12/16 at 12:30; Stop 07/12/16 at 12:31; Status DC Sodium Chloride (Iv Sodium Chloride 0.9% 1000ml Bag) 1,000 ml @ 1,000 mls/hr 1X ONCE IV Last administered on 07/12/16 13:12; Start 07/12/16 at 13:15; Stop 07/12/16 at 14:14; Status DC Insulin Human Regular (Novolin R Vial) 10 unit 1X ONCE IV Last administered on 07/12/16 13:16; Start 07/12/16 at 13:15; Stop 07/12/16 at 13:16; Status DC Diphenhydramine HCl (Benadryl) 50 mg STK-MED ONCE .ROUTE ; Start 07/12/16 at 14: 55; Stop 07/12/16 at 14:56; Status DC Diphenhydramine HCl (Benadryl) 50 mg 1X ONCE IVP Last administered on 15:15; Start 07/12/16 at 15:15; Stop 07/12/16 at 15:16; Status DC Atorvastatin Calcium (Lipitor) 40 mg HS PO Last administered on 07/23/16 20:45 ; Start 07/12/16 at 21:00; Stop 07/24/16 at 13:39; Status DC Diltiazem HCl (Cardizem 24hr Cd) 240 mg DAILY PO ; Start 07/12/16 at 16:30; Stop 07/13/16 at 17:18; Status DC Insulin Aspart (Novolog) 10 units TIDAC SQ ; Start 07/12/16 at 16:30; Stop 07/12 at 16:30; Status DC Insulin Detemir (Levemir) 20 units QHS SQ ; Start 07/12/16 at 21:00; Stop at 21:00; Status DC Promethazine HCl/ Codeine (Phenergan With Codeine) 5 ml QID PO ; Start 07/12/16 at 17:00; Stop 07/13/16 at 17:18; Status DC Non-Formulary Medication 2 puff BID IH ; Start 07/12/16 at 21:00; Status UNV Non-Formulary Medication 2.5 gm DAILY IH ; Start 07/13/16 at 09:00; Status UNV Budesonide (Pulmicort) 0.5 mg RTBID NEB Last administered on 07/13/16 07:30; Start 07/12/16 at 20:00; Stop 07/13/16 at 11:27; Status DC Albuterol/ Ipratropium (Duoneb) 3 ml RTQID NEB Last administered on 07/16/16 07:47; Start 07/12/16 at 20:00; Stop 07/16/16 at 08:38; Status DC Methylprednisolone Sodium Succinate (Solu-Medrol 40mg Vial) 60 mg 1X ONCE IV Last administered on 07/12/16 16:06; Start 07/12/16 at 16:30; Stop 07/12/16 at 16:31; Status DC Methylprednisolone Sodium Succinate (Solu-Medrol 40mg Vial) 60 mg DAILY IV ; Start 07/13/16 at 09:00; Stop 07/13/16 at 09:00; Status DC Pantoprazole Sodium (Protonix Vial) 40 mg DAILY IVP Last administered on 08:43; Start 07/13/16 at 09:00; Stop 07/17/16 at 20:37; Status DC Diphenhydramine HCl 25 mg 25 mg PRN Q6HRS PRN IVP ANAPHYLAXIS Last administered on 07/12/16 16:06; Start 07/12/16 at 16:00; Stop 07/23/16 at 04:47 ; Status DC Sodium Chloride (Iv Sodium Chloride 0.9% 1000ml Bag) 1,000 ml @ 150 mls/hr Q6H40M IV Last administered on 07/14/16 01:21; Start 07/12/16 at 16:30; Stop 07/14/16 at 09:31; Status DC Albuterol/ Ipratropium (Duoneb) 3 ml QID NEB ; Start 07/12/16 at 17:00; Status UNV Albuterol Sulfate (Ventolin Neb Soln) 2.5 mg PRN Q2HR PRN NEB SHORTNESS OF BREATH Last administered on 07/24/16 05:20; Start 07/12/16 at 16:00 Insulin Aspart (Novolog) 0-9 UNITS QID SQ Last administered on 07/14/16 08:37 ; Start 07/12/16 at 17:00; Stop 07/14/16 at 09:31; Status DC Dextrose 12.5 gm PRN Q15MIN PRN IV SEE COMMENTS; Start 07/12/16 at 16:00; Stop 07/15/16 at 12:46; Status DC Insulin Detemir (Levemir) 15 units QHS SQ ; Start 07/12/16 at 21:00; Stop at 21:00; Status DC Enoxaparin Sodium (Lovenox 40mg Syringe) 40 mg DAILY SQ Last administered on 08:54; Start 07/12/16 at 16:30; Stop 07/15/16 at 14:28; Status DC Insulin Detemir (Levemir) 20 units QHS SQ Last administered on 07/12/16 23:49 ; Start 07/12/16 at 21:00; Stop 07/13/16 at 15:18; Status DC Succinylcholine Chloride 200 mg 200 mg STK-MED ONCE .ROUTE ; Start 07/12/16 at 17:46; Stop 07/12/16 at 17:47; Status DC Propofol (Diprivan) 100 ml @ As Directed STK-MED ONCE IV ; Start 07/12/16 at 17 :46; Stop 07/12/16 at 17:47; Status DC Lidocaine HCl 100 mg STK-MED ONCE .ROUTE ; Start 07/12/16 at 18:02; Stop at 18:03; Status DC Ketamine HCl 500 mg 1X ONCE IV ; Start 07/12/16 at 18:30; Stop 07/12/16 at 18: 31; Status DC Midazolam HCl (Versed) 5 mg STK-MED ONCE .ROUTE ; Start 07/12/16 at 18:14; Stop 07/12/16 at 18:15; Status DC Midazolam HCl (Versed) 2 mg 1X ONCE IV ; Start 07/12/16 at 18:30; Stop at 18:31; Status DC Glycopyrrolate (Robinul) 1 mg 1X ONCE IV ; Start 07/12/16 at 18:30; Stop at 18:31; Status DC Oxymetazoline HCl (Afrin) 2 spray 1X ONCE NS ; Start 07/12/16 at 18:30; Stop at 18:31; Status DC Lidocaine HCl 30 ml STK-MED ONCE .ROUTE ; Start 07/12/16 at 18:19; Stop at 18:20; Status DC Vecuronium [place] 6 mg 6 mg PRN Q4HRS PRN IV ANXIETY / AGITATION Last administered on 07/12/16 19:55; Start 07/12/16 at 19:00; Stop 07/15/16 at 07:58 ; Status DC Propofol (Diprivan) 100 ml @ 0 mls/hr CONT PRN IV SEE I/O RECORD Last administered on 07/14/16 13:42; Start 07/12/16 at 19:00; Stop 07/15/16 at 07:58 ; Status DC Insulin Aspart 10 units 10 units 1X ONCE SQ Last administered on 07/12/16 19: 41; Start 07/12/16 at 19:45; Stop 07/12/16 at 19:46; Status DC Vecuronium [place] 100 mg/ Dextrose 100 ml @ 0 mls/hr CONT PRN IV SEE I/O RECORD Last administered on 07/13/16 20:48; Start 07/12/16 at 21:00; Stop 07/14 at 09:31; Status DC Fentanyl Citrate (Fentanyl 600 Mcg/30 ml INFORMATION TECHNOLOGY SPECIALIST) 30 ml @ 0 mls/hr CONT PRN IV PROTOCOL Last administered on 07/14/16 09:33; Start 07/12/16 at 22:00; Stop at 07:58; Status DC Chlorhexidine Gluconate (Peridex) 15 ml BID MM Last administered on 07/23/16 08:22; Start 07/13/16 at 09:00; Stop 07/23/16 at 09:42; Status DC Methylprednisolone Sodium Succinate (Solu-Medrol 125mg Vial) 125 mg BID IV Last administered on 07/14/16 21:02; Start 07/13/16 at 09:00; Stop 07/15/16 at 07:58; Status DC Rocuronium [place] (Zemuron) 50 mg STK-MED ONCE .ROUTE ; Start 07/12/16 at 15:00 ; Stop 07/13/16 at 08:54; Status DC Glycopyrrolate (Robinul) 1 mg STK-MED ONCE .ROUTE ; Start 07/12/16 at 15:00; Stop 07/13/16 at 08:54; Status DC Lidocaine HCl 30 ml STK-MED ONCE .ROUTE ; Start 07/12/16 at 18:00; Stop at 09:05; Status DC Midazolam HCl (Versed) 5 mg STK-MED ONCE .ROUTE ; Start 07/12/16 at 18:00; Stop 07/13/16 at 09:05; Status DC Propofol (Diprivan) 1,000 mg STK-MED ONCE IV ; Start 07/12/16 at 18:00; Stop at 09:05; Status DC Succinylcholine Chloride (Anectine) 200 mg STK-MED ONCE .ROUTE ; Start 07/12/16 at 18:00; Stop 07/13/16 at 09:05; Status DC Multi-Ingred Cream/Lotion/Oil/ Oint (Artificial Tears Eye Oint) 1 margie PRN Q1HR PRN OU DRY EYE Last administered on 07/13/16 15:45; Start 07/13/16 at 11:00 Ketamine HCl 500 mg STK-MED ONCE .ROUTE ; Start 07/12/16 at 18:30; Stop at 12:05; Status DC Insulin Aspart (Novolog) 10 units 1X STAT SQ Last administered on 07/13/16 12 :36; Start 07/13/16 at 12:17; Stop 07/13/16 at 12:20; Status DC Insulin Aspart (Novolog) 10 units 1X ONCE SQ Last administered on 07/13/16 14 :31; Start 07/13/16 at 14:30; Stop 07/13/16 at 14:31; Status DC Insulin Detemir (Levemir) 40 units QHS SQ Last administered on 07/13/16 20:50 ; Start 07/13/16 at 21:00; Stop 07/14/16 at 09:31; Status DC Benzocaine (Hurricaine One) 1 spray STK-MED ONCE .ROUTE ; Start 07/12/16 at 12: 00; Stop 07/13/16 at 16:00; Status DC Lidocaine HCl 5 margie 5 margie STK-MED ONCE TP ; Start 07/12/16 at 12:00; Stop at 16:00; Status DC Insulin Human Regular/Sodium Chloride (Novolin R Vial/ Iv Normal Saline 150ml) 151.5 ml @ 0 mls/hr CONT PRN IV SEE I/O RECORD Last administered on 07/14/16 10:01; Start 07/14/16 at 09:30; Stop 07/15/16 at 07:58; Status DC Info 1 each 1 each PRN DAILY PRN MC SEE COMMENTS Last administered on 08:27; Start 07/14/16 at 09:30; Stop 07/19/16 at 16:30; Status DC Magnesium Sulfate/ Dextrose 50 ml @ 25 mls/hr PRN DAILY PRN IV for Mag < 1.7 on am labs; Start 07/14/16 at 11:15; Stop 07/15/16 at 07:58; Status DC Sodium Chloride 500 ml @ 500 mls/hr QID PRN IV UO< 30cc/hr over previous 6hrs ; Start 07/14/16 at 11:15; Stop 07/14/16 at 11:26; Status DC Sodium Chloride 500 ml @ 500 mls/hr PRN QID PRN IV UO< 30cc/hr over previous 6hrs Last administered on 07/16/16 10:00; Start 07/14/16 at 11:26 Ceftriaxone Sodium 1 gm/ Sodium Chloride 50 ml @ 100 mls/hr Q24H IV Last administered on 07/19/16 12:25; Start 07/14/16 at 12:00; Stop 07/20/16 at 12:29 ; Status DC Sodium Chloride/ Magnesium Sulfate/ Calcium Gluconate/ Multivitamins/ Chromium/ Copper/ Manganese/Seleni/ Zn/Total Parenteral Nutrition/Amino Acids/Dextrose ( Sodium Chloride/ Infuvite Adult/ Multitrace-5 Conc/ Tpn - Tpn Fluid/ Trophamine / Dextrose 70%-Water Iv Soln) 1,512 ml @ 63 mls/hr TPN CONT IV Last administered on 07/14/16 22:29; Start 07/14/16 at 22:00; Stop 07/15/16 at 21:59 ; Status DC Hydralazine HCl (Apresoline) 10 mg PRN Q4HRS PRN IVP ELEVATED BP, SEE COMMENTS Last administered on 07/24/16 13:01; Start 07/14/16 at 22:30; Stop 07/24/16 at 14 :38; Status DC Methylprednisolone Sodium Succinate (Solu-Medrol 125mg Vial) 125 mg DAILY IV Last administered on 07/15/16 08:55; Start 07/15/16 at 09:00; Stop 07/16/16 at 08:35; Status DC Insulin Aspart (Novolog) 0-9 UNITS TIDWMEALS SQ Last administered on 07/15/16 16:16; Start 07/15/16 at 08:00; Stop 07/16/16 at 07:16; Status DC Dextrose 12.5 gm PRN Q15MIN PRN IV SEE COMMENTS; Start 07/15/16 at 08:00; Stop 07/19/16 at 10:53; Status DC Insulin Detemir (Levemir) 20 units QHS SQ Last administered on 07/15/16 21:48 ; Start 07/15/16 at 21:00; Stop 07/16/16 at 07:16; Status DC Insulin Aspart (Novolog) 10 units TIDAC SQ ; Start 07/15/16 at 11:30; Stop 07/16 at 07:16; Status DC Sodium Polystyrene Sulfonate (Kayexalate) 30 gm 1X ONCE PO ; Start 07/15/16 at 08:00; Stop 07/15/16 at 08:08; Status DC Hydrochlorothiazide (Microzide) 12.5 mg DAILY PO ; Start 07/15/16 at 09:00; Stop 07/16/16 at 07:39; Status DC Isosorbide Mononitrate (Imdur) 120 mg DAILY PO ; Start 07/15/16 at 09:00; Stop 07/15/16 at 09:00; Status DC Diltiazem HCl (Cardizem 24hr Cd) 240 mg DAILY PO ; Start 07/15/16 at 09:00; Stop 07/16/16 at 07:39; Status DC Guaifenesin (Mucinex) 600 mg BID PO ; Start 07/15/16 at 09:00; Stop 07/16/16 at 07:39; Status DC Mupirocin (Bactroban) 1 margie BID NS Last administered on 07/25/16 08:33; Start 07/15/16 at 09:00 Isosorbide Mononitrate (Imdur) 120 mg DAILY PO ; Start 07/15/16 at 09:00; Stop 07/16/16 at 07:39; Status DC Sodium Bicarbonate 50 meq 1X ONCE IV Last administered on 07/15/16t 15:22; Start 07/15/16 at 10:45; Stop 07/15/16 at 10:46; Status DC Sodium Bicarbonate 50 meq 50 meq STK-MED ONCE .ROUTE ; Start 07/15/16 at 10:34; Stop 07/15/16 at 10:35; Status DC Dopamine HCl/ Dextrose 250 ml @ As Directed STK-MED ONCE IV ; Start 07/15/16 at 10:37; Stop 07/15/16 at 10:38; Status DC Midazolam HCl (Versed) 5 mg STK-MED ONCE .ROUTE ; Start 07/15/16 at 10:41; Stop 07/15/16 at 10:42; Status DC Iohexol 100 ml 100 ml STK-MED ONCE .ROUTE ; Start 07/15/16 at 10:45; Stop at 10:46; Status DC Heparin Sodium/ Sodium Chloride 1,500 ml @ As Directed STK-MED ONCE .ROUTE ; Start 07/15/16 at 10:45; Stop 07/15/16 at 10:46; Status DC Lidocaine HCl 20 ml 20 ml STK-MED ONCE .ROUTE ; Start 07/15/16 at 10:45; Stop at 10:46; Status DC Dopamine HCl/ Dextrose 250 ml @ 16.255 mls/ hr CONT PRN IV SEE I/O RECORD Last administered on 07/16/16 23:10; Start 07/15/16 at 11:00 Sodium Chloride 1,000 ml @ 1,000 mls/hr 1X ONCE IV Last administered on 11:00; Start 07/15/16 at 11:00; Stop 07/15/16 at 11:59; Status DC Norepinephrine Bitartrate/Sodium Chloride (Levophed Vial/ Iv Sodium Chloride 0.9 % 250ml) 258 ml @ 0 mls/hr CONT PRN IV SEE I/O RECORD Last administered on 07/17 00:51; Start 07/15/16 at 11:00 Midazolam HCl (Versed) 5 mg STK-MED ONCE .ROUTE ; Start 07/15/16 at 10:54; Stop 07/15/16 at 10:55; Status DC Fentanyl Citrate (Fentanyl 2ml Vial) 100 mcg STK-MED ONCE .ROUTE ; Start at 11:02; Stop 07/15/16 at 11:03; Status DC Vecuronium [place] 10 mg 10 mg STK-MED ONCE IV ; Start 07/15/16 at 11:03; Stop 07/15/16 at 11:04; Status DC Midazolam HCl (Versed 100mg/ 100ml Premix) 100 ml @ As Directed STK-MED ONCE IV ; Start 07/15/16 at 11:03; Stop 07/15/16 at 11:04; Status DC Iohexol (Omnipaque 300 Mg/ml) 112 ml 1X ONCE IART Last administered on 11:56; Start 07/15/16 at 12:00; Stop 07/15/16 at 12:01; Status DC Lidocaine HCl 10 ml 1X ONCE IJ Last administered on 07/15/16 11:57; Start at 12:00; Stop 07/15/16 at 12:01; Status DC Heparin Sodium/ Sodium Chloride 1000 unit 1,000 unit 1X ONCE IART ; Start 07/15 at 12:00; Stop 07/15/16 at 12:01; Status DC Sodium Chloride/ Magnesium Sulfate/ Calcium Gluconate/ Multivitamins/ Chromium/ Copper/ Manganese/Seleni/ Zn/Total Parenteral Nutrition/Amino Acids/Dextrose ( Sodium Chloride/ Infuvite Adult/ Multitrace-5 Conc/ Tpn - Tpn Fluid/ Trophamine / Dextrose 70%-Water Iv Soln) 1,512 ml @ 63 mls/hr TPN CONT IV Last administered on 07/15/16 21:27; Start 07/15/16 at 22:00; Stop 07/16/16 at 21:59 ; Status DC Iohexol (Omnipaque 300 Mg/ml) 75 ml 1X ONCE IV Last administered on 07/15/16 13:43; Start 07/15/16 at 13:15; Stop 07/15/16 at 13:16; Status DC Info (Do NOT chart on this entry -- for MONITORING) 1 each PRN DAILY PRN MC SEE COMMENTS; Start 07/15/16 at 13:15; Stop 07/17/16 at 13:14; Status DC Heparin Sodium (Porcine) 7000 unit 7,000 unit 1X ONCE IV Last administered on 07/15/16 15:27; Start 07/15/16 at 14:45; Stop 07/15/16 at 14:46; Status DC Heparin Sodium/ Dextrose 500 ml @ 0 mls/hr CONT PRN IV SEE I/O RECORD Last administered on 07/17/16 18:41; Start 07/15/16 at 14:30; Stop 07/18/16 at 10:21 ; Status DC Heparin Sodium (Porcine) 2,600 unit PRN Q6HRS PRN IV FOR UFH LEVEL LESS THAN 0.2; Start 07/15/16 at 14:30; Stop 07/18/16 at 10:21; Status DC Heparin Sodium (Porcine) 1,300 unit PRN Q6HRS PRN IV FOR UFH LEVEL 0.2 - 0.29; Start 07/15/16 at 14:30; Stop 07/18/16 at 10:21; Status DC Warfarin Sodium (Coumadin Per Pharmacy) 1 each PRN DAILY PRN MC PER PROTOCOL; Start 07/15/16 at 14:30; Stop 07/15/16 at 14:30; Status DC Sodium Bicarbonate 50 meq 50 meq 1X ONCE IV Last administered on 07/15/16 16: 30; Start 07/15/16 at 16:30; Stop 07/15/16 at 16:34; Status DC Alteplase, Recombinant (Activase) 100 ml @ 50 mls/hr 1X ONCE IV Last administered on 07/15/16 17:30; Start 07/15/16 at 17:30; Stop 07/15/16 at 19:29 ; Status DC Fentanyl Citrate (Fentanyl 2ml Vial) 25 mcg PRN Q1HR PRN IV COMM; Start at 22:30; Stop 07/16/16 at 07:17; Status DC Fentanyl Citrate (Fentanyl 2ml Vial) 50 mcg PRN Q1HR PRN IV COMM Last administered on 07/16/16 05:30; Start 07/15/16 at 22:30; Stop 07/16/16 at 07:17 ; Status DC Scopolamine (Transderm-Scop) 1 patch Q3DAYS TD Last administered on 07/24/16 07 :59; Start 07/18/16 at 09:00 Scopolamine 1 patch 1 patch ONCE ONCE TD ; Start 07/15/16 at 23:30; Stop at 23:31; Status DC Sodium Chloride 1,000 ml @ 1,000 mls/hr 1X ONCE IV Last administered on 02:38; Start 07/16/16 at 01:00; Stop 07/16/16 at 01:59; Status DC Midazolam HCl 100 ml @ As Directed STK-MED ONCE IV ; Start 07/16/16 at 01:00; Stop 07/16/16 at 01:01; Status DC Midazolam HCl 100 ml @ 0 mls/hr CONT PRN IV SEE I/O RECORD Last administered on 07/19/16 07:52; Start 07/16/16 at 01:15 Vasopressin 40 unit/Dextrose 102 ml @ 6 mls/hr CONT PRN IV SEE I/O RECORD Last administered on 07/17/16 13:33; Start 07/16/16 at 05:00; Stop 07/24/16 at 14:38 ; Status DC Insulin Human Regular 150 unit/ Sodium Chloride 151.5 ml @ 0 mls/hr CONT PRN IV SEE I/O RECORD Last administered on 07/17/16 02:26; Start 07/16/16 at 05:00 ; Stop 07/17/16 at 10:10; Status DC Fentanyl Citrate (Fentanyl 600 Mcg/30 ml INFORMATION TECH[employer]Y SPECIALIST) 30 ml @ 0 mls/hr CONT PRN IV PROTOCOL Last administered on 07/25/16 08:46; Start 07/16/16 at 07:15 Vecuronium [place] (Norcuron Bolus) 10 mg STK-MED ONCE IV ; Start 07/15/16 at 11 :00; Stop 07/16/16 at 08:06; Status DC Fentanyl Citrate (Fentanyl 2ml Vial) 100 mcg STK-MED ONCE .ROUTE ; Start at 11:00; Stop 07/16/16 at 08:06; Status DC Midazolam HCl (Versed) 10 mg STK-MED ONCE .ROUTE ; Start 07/15/16 at 11:00; Stop 07/16/16 at 08:06; Status DC Dopamine HCl/ Dextrose 400 mg STK-MED ONCE IV ; Start 07/15/16 at 11:00; Stop at 08:06; Status DC Sodium Bicarbonate 50 meq STK-MED ONCE .ROUTE ; Start 07/15/16 at 11:00; Stop at 08:06; Status DC Hydrocortisone Sodium Succinate (Solu-Cortef) 100 mg Q8HRS IV Last administered on 07/19/16 05:50; Start 07/16/16 at 09:00; Stop 07/19/16 at 09:30 ; Status DC Sodium Polystyrene Sulfonate 30 gm 30 gm 1X ONCE PO Last administered on 08:41; Start 07/16/16 at 08:30; Stop 07/16/16 at 08:34; Status DC Albumin Human (Plasmanate) 500 ml @ 125 mls/hr PRN Q6HRS PRN IV for CVP < 10; MAP < 65 Last administered on 07/17/16 08:12; Start 07/16/16 at 08:30; Stop 07/24/16 at 14:38; Status DC Sodium Bicarbonate 50 meq 1X ONCE IV Last administered on 07/16/16 08:41; Start 07/16/16 at 08:45; Stop 07/16/16 at 08:46; Status DC Info (Anti-Coagulation Monitoring By Pharmacy) 1 each PRN DAILY PRN MC SEE COMMENTS; Start 07/16/16 at 08:45; Status Cancel Ipratropium [place] (Atrovent) 0.5 mg RTQID NEB Last administered on 07/25/16 11:57; Start 07/16/16 at 12:00 Lidocaine/Sodium Bicarbonate (Buffered Lidocaine 1%) 3 ml 1X ONCE IJ Last administered on 07/16/16 10:43; Start 07/16/16 at 09:15; Stop 07/16/16 at 09:16 ; Status DC Heparin Sodium/ Sodium Chloride 60 unit 1X ONCE IV Last administered on 10:44; Start 07/16/16 at 09:15; Stop 07/16/16 at 09:16; Status DC Heparin Sodium (Porcine) 2500 unit 2,500 unit 1X ONCE INT CAT Last administered on 07/16/16 10:44; Start 07/16/16 at 09:15; Stop 07/16/16 at 09:16 ; Status DC Sodium Chloride 40 meq/Sodium Acetate 40 meq/ Magnesium Sulfate 8 meq/Calcium Gluconate 5 meq/ Multivitamins 10 ml/Chromium/ Copper/Manganese/ Seleni/Zn 1 ml / Insulin Human Regular 10 unit/ Total Parenteral Nutrition/Amino Acids/Dextrose / Fat Emulsion Intravenous 1,512 ml @ 63 mls/hr TPN CONT IV Last administered on 07/16/16 21:53; Start 07/16/16 at 22:00; Stop 07/17/16 at 21:59 ; Status DC Pantoprazole Sodium 80 mg/ Sodium Chloride 100 ml @ 10 mls/hr Q10H IV Last administered on 07/21/16 10:10; Start 07/17/16 at 06:45; Stop 07/21/16 at 12:21 ; Status DC Sodium Acetate/ Potassium Acetate/ Magnesium Sulfate/ Calcium Gluconate/ Multivitamins/ Chromium/Copper/ Manganese/Seleni/ Zn/Insulin Human Regular/ Total Parenteral Nutrition/Amino Acids/Dextrose/ Fat Emulsion Intravenous ( Calcium Gluconate/ Infuvite Adult/ Multitrace-5 Conc/ Novolin R Vi... 1,512 ml @ 63 mls/hr TPN CONT IV Last administered on 07/17/16 21:49; Start 07/17/16 at 22:00; Stop 07/18/16 at 21:59; Status DC Insulin Detemir (Levemir) 25 units BID SQ Last administered on 07/17/16 20:51 ; Start 07/17/16 at 10:30; Stop 07/18/16 at 08:12; Status DC Insulin Aspart (Novolog) 0-9 UNITS TIDWMEALS SQ Last administered on 07/18/16 10:03; Start 07/17/16 at 12:00; Stop 07/18/16 at 11:55; Status DC Dextrose 12.5 gm PRN Q15MIN PRN IV SEE COMMENTS; Start 07/17/16 at 10:15; Status UNV Iohexol (Omnipaque 300 Mg/ml) 100 ml STK-MED ONCE .ROUTE ; Start 07/17/16 at 10: 45; Stop 07/17/16 at 10:46; Status DC Lidocaine/Sodium Bicarbonate 20 ml 20 ml STK-MED ONCE IJ ; Start 07/17/16 at 10: 45; Stop 07/17/16 at 10:46; Status DC Heparin Sodium/ Sodium Chloride 500 ml @ As Directed STK-MED ONCE .ROUTE ; Start 07/17/16 at 10:46; Stop 07/17/16 at 10:47; Status DC Heparin Sodium/ Sodium Chloride 1,000 unit 1X ONCE IART Last administered on 11:27; Start 07/17/16 at 11:15; Stop 07/17/16 at 11:26; Status DC Lidocaine/Sodium Bicarbonate (Buffered Lidocaine 1%) 3 ml 1X ONCE IJ Last administered on 07/17/16 11:15; Start 07/17/16 at 11:15; Stop 07/17/16 at 11:26 ; Status DC Iohexol (Omnipaque 300 Mg/ml) 40 ml 1X ONCE IART Last administered on 11:26; Start 07/17/16 at 11:15; Stop 07/17/16 at 11:26; Status DC Info (Do NOT chart on this entry -- for MONITORING) 1 each PRN DAILY PRN MC SEE COMMENTS; Start 07/17/16 at 11:30; Stop 07/19/16 at 11:29; Status DC Calcium Chloride 2,000 mg STK-MED ONCE IV ; Start 07/16/16 at 13:02; Stop at 13:03; Status DC Epinephrine HCl 4 mg STK-MED ONCE .ROUTE ; Start 07/16/16 at 13:02; Stop at 13:03; Status DC Furosemide 40 mg 40 mg 1X ONCE IVP Last administered on 07/17/16 16:45; Start 07/17/16 at 16:45; Stop 07/17/16 at 16:47; Status DC Propofol (Diprivan) 100 ml @ As Directed STK-MED ONCE IV ; Start 07/17/16 at 16 :36; Stop 07/17/16 at 16:37; Status DC Insulin Detemir (Levemir) 35 units BID SQ Last administered on 07/18/16 10:00 ; Start 07/18/16 at 09:00; Stop 07/18/16 at 11:55; Status DC Insulin Aspart (Novolog) 10 units Q6HRS SQ ; Start 07/18/16 at 12:00; Stop 07/18 at 12:00; Status DC Insulin Aspart 20 units 20 units 1X ONCE SQ Last administered on 07/18/16 10: 02; Start 07/18/16 at 08:15; Stop 07/18/16 at 11:56; Status DC Sodium Acetate/ Potassium Acetate/ Magnesium Sulfate/ Calcium Gluconate/ Multivitamins/ Chromium/Copper/ Manganese/Seleni/ Zn/Insulin Human Regular/ Total Parenteral Nutrition/Amino Acids/Dextrose/ Fat Emulsion Intravenous ( Calcium Gluconate/ Infuvite Adult/ Multitrace-5 Conc/ Novolin R Vi... 1,512 ml @ 63 mls/hr TPN CONT IV Last administered on 07/18/16 22:03; Start 07/18/16 at 22:00; Stop 07/19/16 at 21:59; Status DC Atropine Sulfate 0.5 mg 0.5 mg STK-MED ONCE .ROUTE ; Start 07/18/16 at 09:43; Stop 07/18/16 at 09:44; Status DC Insulin Human Regular/Sodium Chloride (Novolin R Vial/ Iv Normal Saline 150ml) 151.5 ml @ 0 mls/hr CONT PRN IV SEE I/O RECORD Last administered on 07/18/16 13:54; Start 07/18/16 at 11:45; Stop 07/19/16 at 10:27; Status DC Dextrose 12.5 gm 12.5 gm PRN Q15MIN PRN IV LOW BLOOD SUGAR; Start 07/18/16 at 11:45; Stop 07/19/16 at 10:53; Status DC Potassium Chloride (KCl Premix 20meq) 50 ml @ 25 mls/hr Q2H IV Last administered on 07/19/16 11:09; Start 07/19/16 at 09:30; Stop 07/19/16 at 13:29 ; Status DC Propofol (Diprivan) 1,000 mg STK-MED ONCE IV ; Start 07/17/16 at 16:36; Stop at 08:22; Status DC Atropine Sulfate 1 mg STK-MED ONCE .ROUTE ; Start 07/18/16 at 09:43; Stop at 08:53; Status DC Hydrocortisone Sodium Succinate (Solu-Cortef) 50 mg Q8HRS IV Last administered on 07/24/16 05:27; Start 07/19/16 at 14:00; Stop 07/24/16 at 14:38; Status DC Heparin Sodium (Porcine) 7400 unit 7,400 unit 1X ONCE IV Last administered on 07/19/16 10:03; Start 07/19/16 at 09:45; Stop 07/19/16 at 09:53; Status DC Heparin Sodium/ Dextrose 500 ml @ 0 mls/hr CONT PRN IV SEE I/O RECORD Last administered on 07/25/16 01:58; Start 07/19/16 at 09:45 Heparin Sodium (Porcine) 2,800 unit PRN Q6HRS PRN IV FOR UFH LEVEL LESS THAN 0.2; Start 07/19/16 at 09:45; Stop 07/23/16 at 08:12; Status DC Heparin Sodium (Porcine) 1,400 unit PRN Q6HRS PRN IV FOR UFH LEVEL 0.2 - 0.29 Last administered on 07/20/16 12:06; Start 07/19/16 at 09:45; Stop 07/23/16 at 08:12; Status DC Warfarin Sodium (Coumadin Per Pharmacy) 1 each PRN DAILY PRN MC PER PROTOCOL Last administered on 07/24/16 12:21; Start 07/19/16 at 09:45 Insulin Aspart (Novolog) 0-5 UNITS TIDWMEALS SQ Last administered on 07/19/16 12:02; Start 07/19/16 at 12:00; Stop 07/19/16 at 16:45; Status DC Dextrose 12.5 gm 12.5 gm PRN Q15MIN PRN IV SEE COMMENTS; Start 07/19/16 at 10: 30; Stop 07/24/16 at 13:40; Status DC Potassium Acetate/ Magnesium Sulfate/ Calcium Gluconate/ Multivitamins/ Chromium /Copper/ Manganese/Seleni/ Zn/Insulin Human Regular/Total Parenteral Nutrition/ Amino Acids/Dextrose/ Fat Emulsion Intravenous (Calcium Gluconate/ Infuvite Adult/ Multitrace-5 Conc/ Novolin R Vial/ Tpn - Tpn Flu... 1,200 ml @ 50 mls/ hr TPN CONT IV ; Start 07/19/16 at 22:00; Stop 07/19/16 at 22:00; Status DC Insulin Aspart (Novolog) 0-5 UNITS Q6HRS SQ Last administered on 07/21/16 12: 04; Start 07/19/16 at 18:00; Stop 07/21/16 at 12:34; Status DC Warfarin Sodium (Coumadin) 4 mg 1X WARF ONCE PO Last administered on 17:26; Start 07/19/16 at 17:02; Stop 07/19/16 at 17:03; Status DC Fentanyl Citrate (Fentanyl 2ml Vial) 50 mcg PRN Q2HR PRN IV PAIN Last administered on 07/22/16 03:15; Start 07/20/16 at 02:45; Stop 07/22/16 at 04:45 ; Status DC Warfarin Sodium (Coumadin) 5 mg 1X WARF ONCE PO Last administered on 17:09; Start 07/20/16 at 16:00; Stop 07/20/16 at 16:01; Status DC Midazolam HCl 1 mg 1 mg PRN Q1HR PRN IV sedation on vent; Start 07/20/16 at 11: 15; Stop 07/22/16 at 04:46; Status DC Sodium Chloride (Iv Sodium Chloride 0.9% 1000ml Bag) 1,000 ml @ 75 mls/hr [id number] IV Last administered on 07/23/16 05:31; Start 07/20/16 at 11:15; Stop 07/23/16 at 11:50; Status DC Midazolam HCl (Versed) 2 mg PRN Q1HR PRN IV sedation on vent; Start 07/20/16 at 11:15; Stop 07/22/16 at 04:47; Status DC Midazolam HCl (Versed) 3 mg PRN Q1HR PRN IV sedation on vent; Start 07/20/16 at 11:15; Stop 07/22/16 at 04:47; Status DC Midazolam HCl (Versed) 4 mg PRN Q1HR PRN IV sedation on vent Last administered on 07/22/16 04:32; Start 07/20/16 at 11:15; Stop 07/22/16 at 04:47; Status DC Insulin Detemir (Levemir) 15 units QHS SQ Last administered on 07/20/16 20:47 ; Start 07/20/16 at 21:00; Stop 07/21/16 at 12:34; Status DC Warfarin Sodium (Coumadin) 5 mg 1X WARF ONCE PO Last administered on 15:37; Start 07/21/16 at 16:00; Stop 07/21/16 at 16:01; Status DC Pantoprazole Sodium (Protonix Vial) 40 mg DAILYAC IVP Last administered on 07/22 07:41; Start 07/22/16 at 07:30; Stop 07/23/16 at 04:47; Status DC Insulin Detemir (Levemir) 25 units QHS SQ Last administered on 07/24/16 21:24; Start 07/21/16 at 21:00 Docusate Sodium (Colace) 100 mg BID PO Last administered on 07/23/16 20:45; Start 07/21/16 at 21:00 Insulin Aspart (Novolog) 0-9 UNITS Q6HRS SQ Last administered on 07/24/16 05:28 ; Start 07/21/16 at 13:00 Fentanyl Citrate (Fentanyl 2ml Vial) 100 mcg STK-MED ONCE .ROUTE ; Start at 22:18; Stop 07/21/16 at 22:19; Status DC Midazolam HCl (Versed) 2 mg STK-MED ONCE .ROUTE ; Start 07/21/16 at 23:45; Stop 07/21/16 at 23:46; Status DC Fentanyl Citrate (Fentanyl 2ml Vial) 100 mcg STK-MED ONCE .ROUTE ; Start at 00:36; Stop 07/22/16 at 00:37; Status DC Midazolam HCl (Versed) 2 mg STK-MED ONCE .ROUTE ; Start 07/22/16 at 00:57; Stop 07/22/16 at 00:58; Status DC Midazolam HCl (Versed) 2 mg STK-MED ONCE .ROUTE ; Start 07/22/16 at 02:06; Stop 07/22/16 at 02:07; Status DC Midazolam HCl (Versed) 2 mg STK-MED ONCE .ROUTE ; Start 07/22/16 at 03:13; Stop 07/22/16 at 03:14; Status DC Fentanyl Citrate (Fentanyl 2ml Vial) 100 mcg STK-MED ONCE .ROUTE ; Start at 03:14; Stop 07/22/16 at 03:15; Status DC Midazolam HCl (Versed) 2 mg STK-MED ONCE .ROUTE ; Start 07/22/16 at 04:29; Stop 07/22/16 at 04:30; Status DC Fentanyl Citrate (Fentanyl 2ml Vial) 50 mcg PRN Q2HR PRN IV SEVERE PAIN Last administered on 07/24/16 07:27; Start 07/22/16 at 04:45 Midazolam HCl (Versed) 1 mg PRN Q1HR PRN IV sedation on vent; Start 07/22/16 at 04:46 Midazolam HCl (Versed) 2 mg PRN Q1HR PRN IV sedation on vent Last administered on 07/22/16 07:42; Start 07/22/16 at 04:47 Midazolam HCl (Versed) 3 mg PRN Q1HR PRN IV sedation on vent; Start 07/22/16 at 04:47 Midazolam HCl (Versed) 4 mg PRN Q1HR PRN IV sedation on vent Last administered on 07/22/16 05:33; Start 07/22/16 at 04:47 Warfarin Sodium (Coumadin) 7.5 mg 1X WARF ONCE PO Last administered on 17:38; Start 07/22/16 at 16:00; Stop 07/22/16 at 16:01; Status DC Metoprolol Tartrate (Lopressor) 5 mg Q6HRS IVP Last administered on 07/25/16 05 :38; Start 07/22/16 at 12:30 Atorvastatin Calcium (Lipitor) 40 mg STK-MED ONCE .ROUTE ; Start 07/22/16 at 20: 37; Stop 07/22/16 at 20:38; Status DC Diphenhydramine HCl (Benadryl) 25 mg PRN Q6HRS PRN IVP ANAPHYLAXIS; Start 07/23 at 04:47 Pantoprazole Sodium (Protonix Vial) 40 mg DAILYAC IVP Last administered on 08:32; Start 07/23/16 at 04:47 Heparin Sodium (Porcine) 3,100 unit PRN Q6HRS PRN IV FOR UFH LEVEL LESS THAN 0.2; Start 07/23/16 at 08:15; Stop 07/24/16 at 13:37; Status DC Heparin Sodium (Porcine) 1,600 unit PRN Q6HRS PRN IV FOR UFH LEVEL 0.2 - 0.29 Last administered on 07/23/16 08:26; Start 07/23/16 at 08:15; Stop 07/24/16 at 13:39; Status DC Warfarin Sodium 7.5 mg 7.5 mg 1X WARF ONCE PO Last administered on 07/23/16 16:53; Start 07/23/16 at 16:00; Stop 07/23/16 at 16:01; Status DC Potassium Chloride 50 ml @ 50 mls/hr Q1H IV Last administered on 07/23/16 13: 39; Start 07/23/16 at 11:00; Stop 07/23/16 at 12:59; Status DC Amino Acids/ Electrolytes/ Dextrose (Clinimix E 4.25%-5% Solution) 1,000 ml @ 80 mls/hr [id number] IV Last administered on 07/25/16 03:30; Start 07/23/16 at 12: 00 Atorvastatin Calcium (Lipitor) 40 mg STK-MED ONCE .ROUTE ; Start 07/23/16 at 20: 33; Stop 07/23/16 at 20:34; Status DC Warfarin Sodium (Coumadin) 5 mg 1X WARF ONCE PO ; Start 07/24/16 at 16:00; Stop 07/24/16 at 16:01; Status DC Heparin Sodium (Porcine) (Heparin Sodium) 3,100 unit PRN Q6HRS PRN IV FOR UFH LEVEL LESS THAN 0.2; Start 07/24/16 at 13:37 Heparin Sodium (Porcine) (Heparin Sodium) 1,600 unit PRN Q6HRS PRN IV FOR UFH LEVEL 0.2 - 0.29; Start 07/24/16 at 13:39 Atorvastatin Calcium (Lipitor) 40 mg HS PO ; Start 07/24/16 at 21:00 Dextrose (Dextrose 50%-Water Syringe) 12.5 gm PRN Q15MIN PRN IV SEE COMMENTS; Start 07/24/16 at 13:40 Hydralazine HCl (Apresoline) 20 mg PRN Q4HRS PRN IVP ELEVATED BP, SEE COMMENTS Last administered on 07/25/16 08:30; Start 07/24/16 at 14:45 Hydrocortisone Sodium Succinate (Solu-Cortef) 50 mg BID IV Last administered on 07/25/16 08:32; Start 07/24/16 at 21:00 Clonidine HCl 1 patch 1 patch WEEKLY TD Last administered on 07/24/16 19:05; Start 07/24/16 at 15:00 Nicardipine HCl/ Sodium Chloride (Cardene/Iv Sodium Chloride 0.9% 250ml) 270 ml @ 0 mls/hr CONT PRN IV SEE I/O RECORD; Start 07/25/16 at 08:45 Active Scripts Active Levemir Flextouch (Insulin Detemir) 100 Unit/1 Ml Insuln.pen 20 Units SQ QHS 30 Days Novolog Flexpen (Insulin Aspart) 100 Unit/1 Ml Insuln.pen 10 Units SQ TIDAC 30 Days Reported Advair 100-50 Diskus (Fluticasone/Salmeterol) 1 Each Disk.w.dev 1 Puff IH BID Spiriva Respimat (Tiotropium [place]) 4 Gm Mist.inhal 2.5 Gm IH DAILY Symbicort 160-4.5 Mcg Inhaler (Budesonide/Formoterol Fumarate) 10.2 Gm Hfa.aer.ad 2 Puff IH BID Atorvastatin Calcium 20 Mg Tablet 20 Mg PO HS Lisinopril-Hctz 10-12.5 Mg Tab (Lisinopril/Hydrochlorothiazide) 1 Each Tablet 1 Tab PO DAILY Isosorbide Mononitrate Er (Isosorbide Mononitrate) 120 Mg Tab.er.24h 120 Mg PO DAILY Novolin N (Nph, Human Insulin Isophane) 100 Unit/1 Ml Vial 0 SQ Promethazine-Codeine Syrup (Promethazine Hcl/Codeine) 118 Ml Syrup 5 Ml PO Q4- 6HRS Diltiazem 24HR Cd (Diltiazem Hcl) 240 Mg Cap.er.24h 240 Mg PO DAILY NITROGLYCERIN SubLingual (Nitroglycerin) 0.4 Mg Tab.subl 0.4 Mg SL PRN Q5MIN PRN Atorvastatin Calcium 40 Mg Tablet 40 Mg PO HS Vitals/I & O Vital Sign - Last 24 Hours 07/24/16 07/24/16 07/24/16 07/24/16 13:00 13:01 13:02 14:00 Pulse 62 64 64 76 Resp 26 24 B/P 178/90 173/100 173/100 153/79 Pulse Ox 98 94 O2 Delivery Room Air Room Air 07/24/16 07/24/16 07/24/16 07/24/16 15:00 15:16 16:00 16:00 Temp 98.0 98.0 Pulse 70 72 Resp 26 18 26 B/P 178/83 170/84 Pulse Ox 94 92 94 O2 Delivery Room Air Room Air Room Air Room Air 07/24/16 07/24/16 07/24/16 07/24/16 16:04 17:00 18:00 19:00 Pulse 70 80 Resp 24 19 B/P 182/86 181/93 192/117 Pulse Ox 95 92 O2 Delivery Nasal Cannula Room Air Room Air Room Air O2 Flow Rate 1.0 07/24/16 07/24/16 07/24/16 07/24/16 19:06 20:00 20:00 20:11 Temp 98.8 98.8 Pulse 73 90 Resp 30 B/P 192/117 183/84 Pulse Ox 94 95 O2 Delivery Room Air Room Air Room Air 07/24/16 07/24/16 07/24/16 07/24/16 21:00 21:25 22:00 23:00 Pulse 74 66 83 82 Resp 22 28 21 B/P 183/89 183/89 170/81 196/91 Pulse Ox 95 93 95 O2 Delivery Room Air Room Air Room Air 07/24/16 07/25/16 07/25/16 07/25/16 23:44 00:00 00:00 01:00 Temp 98.8 98.8 Pulse 81 82 76 Resp 20 29 B/P 149/74 166/77 170/75 Pulse Ox 90 95 O2 Delivery Room Air Room Air Room Air 07/25/16 07/25/16 07/25/16 07/25/16 02:00 02:40 03:00 04:00 Temp 98.1 98.1 Pulse 68 74 73 63 Resp 30 23 19 B/P 183/93 196/93 158/90 178/87 Pulse Ox 98 97 100 O2 Delivery Nasal Cannula Nasal Cannula Nasal Cannula O2 Flow Rate 2.0 2.0 2.0 07/25/16 07/25/16 07/25/16 07/25/16 04:00 05:00 05:38 06:00 Pulse 75 81 63 Resp 29 29 B/P 157/80 172/89 169/79 Pulse Ox 98 96 O2 Delivery Nasal Cannula Nasal Cannula Room Air O2 Flow Rate 2.0 2.0 07/25/16 07/25/16 07/25/16 07/25/16 08:30 08:44 08:46 09:16 Pulse 85 Resp 18 16 B/P 185/96 Pulse Ox 95 97 97 O2 Delivery Room Air Room Air Room Air 07/25/16 11:58 Pulse Ox 95 O2 Delivery Room Air Intake and Output 07/24/16 07/24/16 07/25/16 14:59 22:59 06:59 Intake Total 1337 ml 1307 ml Output Total 1760 ml 960 ml Balance -423 ml 347 ml ARGENIS FRANCISL K III DO Jul 25, 2016 12:25
--- NOTE | 2016-07-25 14:16 | PDOC ---
PULMONARY PROGRESS NOTES Subjective EXTUBATEd 07/22 NO INCREASE SOA WANTS TO DRINK Vitals Vital Signs Date Time Temp Pulse Resp B/P Pulse Ox O2 Delivery O2 Flow Rate FiO2 07/25/16 13:34 25 92 Room Air 07/25/16 12:31 87 154/68 07/25/16 05:00 2.0 07/25/16 04:00 98.1 98.1 General: Alert HEENT: Other (nc at orally intubated, nose clear, ) Lungs: Other (decreased breath sounds bilaterally. ) Cardiovascular: S1, S2 Abdomen: Soft, Non-tender, Other (no groin tenderness) Neuro Exam: Alert Extremities: Other (trace edema) Skin: Warm Labs Laboratory Tests Test 07/23/16 14:45 07/23/16 18:15 07/23/16 20:38 07/23/16 20:40 Heparin Anti-Xa Act, Unfractionated 0.50IU/mL (0.30-0.70) 0.51IU/mL (0.30-0.70) Glucose (Fingerstick) 182mg/dL (70-99) 277mg/dL (70-99) Test 07/24/16 05:21 07/24/16 05:25 07/24/16 13:08 07/24/16 19:02 Glucose (Fingerstick) 204mg/dL (70-99) 184mg/dL (70-99) 171mg/dL (70-99) White Blood Count 18.7x10^3/uL (4.0-11.0) Red Blood Count 3.45x10^6/uL (4.30-5.70) Hemoglobin 9.7g/dL (13.0-17.5) Hematocrit 30.7% (39.0-53.0) Mean Corpuscular Volume 89fL (79-100) Mean Corpuscular Hemoglobin 28pg (25-35) Mean Corpuscular Hemoglobin Concent 32g/dL (31-37) Red Cell Distribution Width 15.2% (11.5-14.5) Platelet Count 201x10^3/uL (140-400) Neutrophils (%) (Auto) 85% (31-73) Lymphocytes (%) (Auto) 5% (24-48) Monocytes (%) (Auto) 10% (0-9) Eosinophils (%) (Auto) 0% (0-3) Basophils (%) (Auto) 0% (0-3) Neutrophils # (Auto) 15.8x10^3uL (1.8-7.7) Lymphocytes # (Auto) 0.9x10^3/uL (1.0-4.8) Monocytes # (Auto) 1.9x10^3/uL (0.0-1.1) Eosinophils # (Auto) 0.0x10^3/uL (0.0-0.7) Basophils # (Auto) 0.1x10^3/uL (0.0-0.2) Prothrombin Time 22.4SEC (11.7-14.0) Prothromb Time International Ratio 2.1 (0.8-1.1) Heparin Anti-Xa Act, Unfractionated 0.42IU/mL (0.30-0.70) Sodium Level 150mmol/L (136-145) Potassium Level 3.9mmol/L (3.5-5.1) Chloride Level 114mmol/L (98-107) Carbon Dioxide Level 28mmol/L (21-32) Anion Gap 8 (6-14) Blood Urea Nitrogen 45mg/dL (8-26) Creatinine 1.0mg/dL (0.7-1.3) Estimated GFR (Cockcroft-Gault) 88.6 Glucose Level 237mg/dL (70-99) Calcium Level 8.6mg/dL (8.5-10.1) Test 07/24/16 21:19 07/24/16 23:42 07/25/16 05:30 07/25/16 05:32 Glucose (Fingerstick) 158mg/dL (70-99) 164mg/dL (70-99) 168mg/dL (70-99) White Blood Count 18.7x10^3/uL (4.0-11.0) Red Blood Count 3.62x10^6/uL (4.30-5.70) Hemoglobin 10.2g/dL (13.0-17.5) Hematocrit 31.5% (39.0-53.0) Mean Corpuscular Volume 87fL (79-100) Mean Corpuscular Hemoglobin 28pg (25-35) Mean Corpuscular Hemoglobin Concent 32g/dL (31-37) Red Cell Distribution Width 15.2% (11.5-14.5) Platelet Count 220x10^3/uL (140-400) Neutrophils (%) (Auto) 84% (31-73) Lymphocytes (%) (Auto) 7% (24-48) Monocytes (%) (Auto) 8% (0-9) Eosinophils (%) (Auto) 0% (0-3) Basophils (%) (Auto) 1% (0-3) Neutrophils # (Auto) 15.7x10^3uL (1.8-7.7) Lymphocytes # (Auto) 1.3x10^3/uL (1.0-4.8) Monocytes # (Auto) 1.6x10^3/uL (0.0-1.1) Eosinophils # (Auto) 0.0x10^3/uL (0.0-0.7) Basophils # (Auto) 0.1x10^3/uL (0.0-0.2) Sodium Level 153mmol/L (136-145) Potassium Level 3.8mmol/L (3.5-5.1) Chloride Level 115mmol/L (98-107) Carbon Dioxide Level 28mmol/L (21-32) Anion Gap 10 (6-14) Blood Urea Nitrogen 34mg/dL (8-26) Creatinine 0.9mg/dL (0.7-1.3) Estimated GFR (Cockcroft-Gault) 100.1 Glucose Level 183mg/dL (70-99) Calcium Level 8.5mg/dL (8.5-10.1) Test 07/25/16 11:44 07/25/16 12:27 Prothrombin Time 24.2SEC (11.7-14.0) Prothromb Time International Ratio 2.3 (0.8-1.1) Heparin Anti-Xa Act, Unfractionated 0.37IU/mL (0.30-0.70) Glucose (Fingerstick) 192mg/dL (70-99) Laboratory Tests Test 07/24/16 19:02 07/24/16 21:19 07/24/16 23:42 07/25/16 05:30 Glucose (Fingerstick) 171mg/dL (70-99) 158mg/dL (70-99) 164mg/dL (70-99) White Blood Count 18.7x10^3/uL (4.0-11.0) Red Blood Count 3.62x10^6/uL (4.30-5.70) Hemoglobin 10.2g/dL (13.0-17.5) Hematocrit 31.5% (39.0-53.0) Mean Corpuscular Volume 87fL (79-100) Mean Corpuscular Hemoglobin 28pg (25-35) Mean Corpuscular Hemoglobin Concent 32g/dL (31-37) Red Cell Distribution Width 15.2% (11.5-14.5) Platelet Count 220x10^3/uL (140-400) Neutrophils (%) (Auto) 84% (31-73) Lymphocytes (%) (Auto) 7% (24-48) Monocytes (%) (Auto) 8% (0-9) Eosinophils (%) (Auto) 0% (0-3) Basophils (%) (Auto) 1% (0-3) Neutrophils # (Auto) 15.7x10^3uL (1.8-7.7) Lymphocytes # (Auto) 1.3x10^3/uL (1.0-4.8) Monocytes # (Auto) 1.6x10^3/uL (0.0-1.1) Eosinophils # (Auto) 0.0x10^3/uL (0.0-0.7) Basophils # (Auto) 0.1x10^3/uL (0.0-0.2) Sodium Level 153mmol/L (136-145) Potassium Level 3.8mmol/L (3.5-5.1) Chloride Level 115mmol/L (98-107) Carbon Dioxide Level 28mmol/L (21-32) Anion Gap 10 (6-14) Blood Urea Nitrogen 34mg/dL (8-26) Creatinine 0.9mg/dL (0.7-1.3) Estimated GFR (Cockcroft-Gault) 100.1 Glucose Level 183mg/dL (70-99) Calcium Level 8.5mg/dL (8.5-10.1) Test 07/25/16 05:32 07/25/16 11:44 07/25/16 12:27 Glucose (Fingerstick) 168mg/dL (70-99) 192mg/dL (70-99) Prothrombin Time 24.2SEC (11.7-14.0) Prothromb Time International Ratio 2.3 (0.8-1.1) Heparin Anti-Xa Act, Unfractionated 0.37IU/mL (0.30-0.70) Medications Active Scripts Medications Dose Route/Sig Days Date Category Advair 100-50 Diskus (Fluticasone/Salmeterol) 1 Each Disk.w.dev 1 Puff IH BID 06/21/16 Reported Spiriva Respimat (Tiotropium [place]) 4 Gm Mist.inhal 2.5 Gm IH DAILY 06/21/16 Reported Symbicort 160-4.5 Mcg Inhaler (Budesonide/Formoterol Fumarate) 10.2 Gm Hfa.aer.ad 2 Puff IH BID 06/21/16 Reported Atorvastatin Calcium 20 Mg Tablet 20 Mg PO HS 06/21/16 Reported Lisinopril-Hctz 10-12.5 Mg Tab (Lisinopril/Hydrochlorothiazide) 1 Each Tablet 1 Tab PO DAILY 06/21/16 Reported Isosorbide Mononitrate Er (Isosorbide Mononitrate) 120 Mg Tab.er.24h 120 Mg PO DAILY 06/21/16 Reported Levemir Flextouch (Insulin Detemir) 100 Unit/1 Ml Insuln.pen 20 Units SQ QHS 30 11/24/15 Rx Novolog Flexpen (Insulin Aspart) 100 Unit/1 Ml Insuln.pen 10 Units SQ TIDAC 30 11/24/15 Rx Novolin N (Nph, Human Insulin Isophane) 100 Unit/1 Ml Vial 0 SQ 11/18/15 Reported Promethazine-Codeine Syrup (Promethazine Hcl/Codeine) 118 Ml Syrup 5 Ml PO Q4-6HRS 11/18/15 Reported Diltiazem 24HR Cd (Diltiazem Hcl) 240 Mg Cap.er.24h 240 Mg PO DAILY 11/18/15 Reported NITROGLYCERIN SubLingual (Nitroglycerin) 0.4 Mg Tab.subl 0.4 Mg SL PRN Q5MIN PRN 11/18/15 Reported Atorvastatin Calcium 40 Mg Tablet 40 Mg PO HS 11/18/[address] reviewed, 1. Widespread multifocal bilateral segmental pulmonary embolism, with nonocclusive lobar embolism involving the right lower and middle lobes. 2. Diffuse tree-in-bud opacification suggestive of acute bronchiolitis. Findings are less confluence than on the prior examination, but now involve the lower lobes. 3. Right heart enlargement with straightening of the interventricular septum possibly due to pulmonary hypertension. Correlate clinically and consider echocardiography if warranted. 4. Short segment high-grade stricture and/or focal obliteration of the right upper lobe bronchus. No adjacent mass or evidence of extrinsic compression. This is stable. CXR REVIEWED Impression . 1. Acute respiratory failure secondary to angioedema, self extubated 07/14, reintubated 07/15, s/p cardiopulmonary arrest, Acute extensive PE, DVT, s/p TPA 2. Acute extensive PE with shock, DVT, s/p TPA, off pressors 2. Lisinopril induced angioedema. resolved 3. Chronic obstructive pulmonary disease. 4. Hypertension. 5. Coronary artery disease. s/p emergent cath.no sig disease 6. BASIM, improving 7. anemia,improved, off AC Plan . NEEDS REHAB SPEECH EVALUATION D/W RN AND RT WILL CONTINUE THE SAME TUBE FEEDING FOR NOW DYSPHAGIA REPEAT CXR TAPER STEROIDS ANTICOAGULATION DOUGIE GARCIA MD Jul 25, 2016 14:15
[2016-07-25] MEDS: NICARDIPINE HCL 50 MG in IV NORMAL SALINE 250ML 250 ML IV PRN ×3 (15:10→22:46)
[2016-07-25] MEDS ORDERED: WARFARIN 5 MG TABLET. PO ONE (16:00)
[2016-07-25] MEDS: ATORVASTATIN CALCIUM 40 MG TABLET. PO SCH (21:11)
[2016-07-25] MEDS: INSULIN DETEMIR 300 UNITS/3 ML INSULN.PEN. SQ SCH (21:16)
[2016-07-25] MEDS: DEXTROSE 50% 25 GM / 50ML DISP.SYRIN. IV PRN (23:42)
[2016-07-25] MEDS: ALBUTEROL SULFATE 2.5 MG/3 ML NEBU. NEB PRN (23:44)
[2016-07-26] VITALS (28 sets, daily range): BP systolic 128–184; BP diastolic 59–97
[2016-07-26] MEDS: AA 4.25%/CALCIUM/LYTES/D5W 1,000 ML IV SCH ×2 (02:30→16:15)
[2016-07-26 04:48] LABS: BASO # 0.1 x10^3/uL (0.0-0.2); BASO % 0 % (0-3); EOS % 0 % (0-3); HEMATOCRIT 27.5 % (39.0-53.0); HEMOGLOBIN 8.7 g/dL (13.0-17.5); LYMPH % 5 % (24-48); MEAN CORPUSCULAR HEMOGLOBIN 28 pg (25-35); MEAN CORPUSCULAR HGB CONC 32 g/dL (31-37); MEAN CORPUSCULAR VOLUME 88 fL (79-100); MONO % 6 % (0-9); NEUT % 88 % (31-73); PLATELET COUNT 173 x10^3/uL (140-400); RED BLOOD COUNT 3.11 x10^6/uL (4.30-5.70); RED CELL DISTRIBUTION WIDTH 15.5 % (11.5-14.5); WHITE BLOOD COUNT 18.4 x10^3/uL (4.0-11.0)
[2016-07-26 04:59] LABS: CALCIUM 7.6 mg/dL (8.5-10.1); CREATININE 0.8 mg/dL (0.7-1.3); GFR 114.7; POTASSIUM 3.2 mmol/L (3.5-5.1)
[2016-07-26] MEDS: LORAZEPAM 2 MG/ML VIAL. IV PRN ×2 (05:29→11:55)
[2016-07-26] MEDS: INSULIN ASPART 300 UNITS/3 ML INSULN.PEN SQ SCH ×3 (06:00→18:00)
[2016-07-26] MEDS: METOPROLOL TARTRATE 5 MG/5 ML VIAL. IVP SCH (06:09)
[2016-07-26] MEDS: DEXTROSE 50% 25 GM / 50ML DISP.SYRIN. IV PRN ×2 (06:23→07:42)
[2016-07-26] MEDS: IPRATROPIUM BROMIDE 0.5 MG/2.5 ML NEBU. NEB SCH ×4 (07:24→19:48)
[2016-07-26] MEDS: PANTOPRAZOLE IV PUSH 40 MG VIAL. IVP SCH (07:48)
[2016-07-26 08:13] LABS: HCO3 ABG 28 mmol/L (21-28); PCO2 ABG 40 mmHg (35-46); PH ABG 7.46 (7.35-7.45); PO2 ABG 99 mmHg (65-108); SAT O2 ABG 97 % (92-99)
[2016-07-26 08:20] LABS: FIO2 ABG 36%
[2016-07-26] MEDS: DOCUSATE SODIUM 100 MG CAPSULE. PO SCH ×2 (09:00→21:00)
[2016-07-26] MEDS: MUPIROCIN 2 % NASAL OINTMENT 22GM TUBE. NS SCH ×2 (09:00→20:46)
--- NOTE | 2016-07-26 09:08 | PDOC ---
SUBJECTIVE ROS f/up for ^Na DOing OK OBJECTIVE Vital Signs Vital Signs Date Time Temp Pulse Resp B/P Pulse Ox O2 Delivery O2 Flow Rate FiO2 07/26/16 07:29 99 Nasal Cannula 6.0 07/26/16 06:09 65 144/82 07/26/16 06:00 98.4 22 98.4 I & 0 Intake and Output 07/26/16 07:00 Intake Total 3675 ml Output Total 2930 ml Balance 745 ml Intake Oral 1150 ml Other 2525 ml Output Urine Total 2930 ml PHYSICAL EXAM Physical Exam General Appearance: Awake: not fully Alert Oriented x 0 Neck: No JVD or JVP Chest: CTA Evan Heart: S1 S2 Abdomen - Soft NTND Extremities - No Edema DIAGNOSIS/ASSESSMENT ^Na - ct Hypotonic fluids - PPN for now low K - Supplement HTN - Catapress #2 x patches COMMENT/RELEVANT DATA Meds Current Medications Medications (Trade) Dose Ordered Sig/Ann Marie Start Time Stop Time Status Last Admin Dose Admin Albumin Human (Plasmanate) 500 ml @ 125 mls/hr PRN Q6HRS PRN 07/16/16 08:30 07/24/16 14:38 DC 07/17/16 08:12 125 MLS/HR Albuterol Sulfate (Ventolin Neb Soln) 2.5 mg PRN Q2HR PRN 07/12/16 16:00 07/25/16 23:44 2.5 MG Albuterol/ Ipratropium (Duoneb) 3 ml QID 07/12/16 17:00 UNV Alteplase, Recombinant (Activase) 100 ml @ 50 mls/hr 1X ONCE 07/15/16 17:30 07/15/16 19:29 DC 07/15/16 17:30 50 MLS/HR Amino Acids/ Electrolytes/ Dextrose (Clinimix E 4.25%-5% Solution) 1,000 ml @ 80 mls/hr [id number] 07/23/16 12:00 07/25/16 03:30 80 MLS/HR Atorvastatin Calcium (Lipitor) 40 mg HS 07/24/16 21:00 07/25/16 21:11 40 MG Atropine Sulfate 1 mg STK-MED ONCE 07/18/16 09:43 07/19/16 08:53 DC Atropine Sulfate 0.5 mg 0.5 mg STK-MED ONCE 07/18/16 09:43 07/18/16 09:44 DC Benzocaine (Hurricaine One) 1 spray STK-MED ONCE 07/12/16 12:00 07/13/16 16:00 DC Budesonide (Pulmicort) 0.5 mg RTBID 07/12/16 20:00 07/13/16 11:27 DC 07/13/16 07:30 0.5 MG Calcium Chloride 2,000 mg STK-MED ONCE 07/16/16 13:02 07/17/16 13:03 DC Ceftriaxone Sodium/Sodium Chloride (Rocephin/Iv Sodium Chloride 0.9% 50ml) 50 ml @ 100 mls/hr Q24H 07/14/16 12:00 07/20/16 12:29 DC 07/19/16 12:25 100 MLS/HR Chlorhexidine Gluconate (Peridex) 15 ml BID 07/13/16 09:00 07/23/16 09:42 DC 07/23/16 08:22 15 ML Clonidine HCl 1 patch 1 patch WEEKLY 07/24/16 15:00 07/24/16 19:05 1 PATCH Dextrose (Dextrose 50%-Water Syringe) 12.5 gm PRN Q15MIN PRN 07/24/16 13:40 07/26/16 07:42 12.5 GM Dextrose 12.5 gm 12.5 gm PRN Q15MIN PRN 07/19/16 10:30 07/24/16 13:40 DC Diltiazem HCl (Cardizem 24hr Cd) 240 mg DAILY 07/15/16 09:00 07/16/16 07:39 DC Diphenhydramine HCl (Benadryl) 25 mg PRN Q6HRS PRN 07/23/16 04:47 Docusate Sodium (Colace) 100 mg BID 07/21/16 21:00 07/25/16 21:11 100 MG Dopamine HCl/ Dextrose 400 mg STK-MED ONCE 07/15/16 11:00 07/16/16 08:06 DC Enoxaparin Sodium (Lovenox 40mg Syringe) 40 mg DAILY 07/12/16 16:30 07/15/16 14:28 DC 07/15/16 08:54 40 MG Epinephrine HCl 4 mg STK-MED ONCE 07/16/16 13:02 07/17/16 13:03 DC Fentanyl Citrate (Fentanyl 2ml Vial) 50 mcg PRN Q2HR PRN 07/22/16 04:45 07/24/16 07:27 50 MCG Fentanyl Citrate (Fentanyl 600 Mcg/30 ml CLINICAL REHABILITATION AIDE) 30 ml @ 0 mls/hr CONT PRN 07/16/16 07:15 07/25/16 17:57 2.5 MLS/HR Furosemide (Lasix) 40 mg 1X ONCE 07/17/16 16:45 07/17/16 16:47 DC 07/17/16 16:45 40 MG Glycopyrrolate (Robinul) 1 mg STK-MED ONCE 07/12/16 15:00 07/13/16 08:54 DC Guaifenesin (Mucinex) 600 mg BID 07/15/16 09:00 07/16/16 07:39 DC Heparin Sodium (Porcine) (Heparin Sodium) 1,600 unit PRN Q6HRS PRN 07/24/16 13:39 Cancel Heparin Sodium (Porcine) 2500 unit 2,500 unit 1X ONCE 07/16/16 09:15 07/16/16 09:16 DC 07/16/16 10:44 2,500 UNIT Heparin Sodium (Porcine) 7400 unit 7,400 unit 1X ONCE 07/19/16 09:45 07/19/16 09:53 DC 07/19/16 10:03 7,400 UNIT Heparin Sodium/ Dextrose 500 ml @ 0 mls/hr CONT PRN 07/19/16 09:45 07/25/16 13:12 DC 07/25/16 01:58 25.2 MLS/HR Heparin Sodium/ Sodium Chloride 1,000 unit 1X ONCE 07/17/16 11:15 07/17/16 11:26 DC 07/17/16 11:27 1,000 UNIT Heparin Sodium/ Sodium Chloride 1000 unit 1,000 unit 1X ONCE 07/15/16 12:00 07/15/16 12:01 DC Hydralazine HCl (Apresoline) 20 mg PRN Q4HRS PRN 07/24/16 14:45 07/25/16 08:30 20 MG Hydrochlorothiazide (Microzide) 12.5 mg DAILY 07/15/16 09:00 07/16/16 07:39 DC Hydrocortisone Sodium Succinate (Solu-Cortef) 50 mg BID 07/24/16 21:00 07/25/16 21:15 50 MG Info (Anti-Coagulation Monitoring By Pharmacy) 1 each PRN DAILY PRN 07/16/16 08:45 Cancel Info (Do NOT chart on this entry -- for MONITORING) 1 each PRN DAILY PRN 07/17/16 11:30 07/19/16 11:29 DC Info 1 each 1 each PRN DAILY PRN 07/14/16 09:30 07/19/16 16:30 DC 07/18/16 08:27 1 EACH Insulin Aspart (Novolog) 0-9 UNITS Q6HRS 07/21/16 13:00 07/25/16 18:03 7 UNITS Insulin Aspart 10 units 10 units 1X ONCE 07/12/16 19:45 07/12/16 19:46 DC 07/12/16 19:41 10 UNITS Insulin Aspart 20 units 20 units 1X ONCE 07/18/16 08:15 07/18/16 11:56 DC 07/18/16 10:02 20 UNITS Insulin Detemir (Levemir) 25 units QHS 07/21/16 21:00 07/26/16 08:09 DC 07/25/16 21:16 25 UNITS Insulin Human Regular (Novolin R Vial) 10 unit 1X ONCE 07/12/16 13:15 07/12/16 13:16 DC 07/12/16 13:16 10 UNIT Insulin Human Regular 150 unit/ Sodium Chloride 151.5 ml @ 0 mls/hr CONT PRN 07/18/16 11:45 07/19/16 10:27 DC 07/18/16 13:54 13.3 MLS/HR Insulin Human Regular/Sodium Chloride (Novolin R Vial/ Iv Normal Saline 150ml) 151.5 ml @ 0 mls/hr CONT PRN 07/14/16 09:30 07/15/16 07:58 DC 07/14/16 10:01 3.9 MLS/HR Iohexol (Omnipaque 300 Mg/ml) 40 ml 1X ONCE 07/17/16 11:15 07/17/16 11:26 DC 07/17/16 11:26 40 ML Ipratropium [place] (Atrovent) 0.5 mg RTQID 07/16/16 12:00 07/26/16 07:24 0.5 MG Isosorbide Mononitrate (Imdur) 120 mg DAILY 07/15/16 09:00 07/16/16 07:39 DC Ketamine HCl 500 mg STK-MED ONCE 07/12/16 18:30 07/13/16 12:05 DC Lidocaine HCl 10 ml 1X ONCE 07/15/16 12:00 07/15/16 12:01 DC 07/15/16 11:57 10 ML Lidocaine HCl 20 ml 20 ml STK-MED ONCE 07/15/16 10:45 07/15/16 10:46 DC Lidocaine HCl 5 margie 5 margie STK-MED ONCE 07/12/16 12:00 07/13/16 16:00 DC Lidocaine/Sodium Bicarbonate (Buffered Lidocaine 1%) 3 ml 1X ONCE 07/17/16 11:15 07/17/16 11:26 DC 07/17/16 11:15 3 ML Lorazepam (Ativan) 1 mg PRN Q4HRS PRN 07/26/16 01:30 07/26/16 05:29 1 MG Magnesium Sulfate/ Dextrose 50 ml @ 25 mls/hr PRN DAILY PRN 07/14/16 11:15 07/15/16 07:58 DC Methylprednisolone Sodium Succinate (Solu-Medrol 40mg Vial) 60 mg DAILY 07/13/16 09:00 07/13/16 09:00 DC Methylprednisolone Sodium Succinate (Solu-Medrol 125mg Vial) 125 mg DAILY 07/15/16 09:00 07/16/16 08:35 DC 07/15/16 08:55 125 MG Metoprolol Tartrate (Lopressor) 5 mg Q6HRS 07/22/16 12:30 07/26/16 06:09 5 MG Midazolam HCl (Versed 100mg/ 100ml Premix) 100 ml @ As Directed STK-MED ONCE 07/15/16 11:03 07/15/16 11:04 DC Midazolam HCl (Versed) 4 mg PRN Q1HR PRN 07/22/16 04:47 07/22/16 05:33 4 MG Midazolam HCl 1 mg 1 mg PRN Q1HR PRN 07/20/16 11:15 07/22/16 04:46 DC Multi-Ingred Cream/Lotion/Oil/ Oint (Artificial Tears Eye Oint) 1 margie PRN Q1HR PRN 07/13/16 11:00 07/13/16 15:45 1 MARGIE Mupirocin (Bactroban) 1 margie BID 07/15/16 09:00 07/25/16 22:46 1 MARGIE Nicardipine HCl/ Sodium Chloride (Cardene/Iv Sodium Chloride 0.9% 250ml) 270 ml @ 0 mls/hr CONT PRN 07/25/16 08:45 07/25/16 22:46 54 MLS/HR Non-Formulary Medication 2.5 gm DAILY 07/13/16 09:00 UNV Norepinephrine Bitartrate/Sodium Chloride (Levophed Vial/ Iv Sodium Chloride 0.9% 250ml) 258 ml @ 0 mls/hr CONT PRN 07/15/16 11:00 07/17/16 00:51 25.15 MLS/HR Oxymetazoline HCl (Afrin) 2 spray 1X ONCE 07/12/16 18:30 07/12/16 18:31 DC Pantoprazole Sodium (Protonix Vial) 40 mg DAILYAC 07/23/16 04:47 07/26/16 07:48 40 MG Pantoprazole Sodium/Sodium Chloride (Protonix Iv/Iv Sodium Chloride 0.9% 100ml) 100 ml @ 10 mls/hr Q10H 07/17/16 06:45 07/21/16 12:21 DC 07/21/16 10:10 10 MLS/HR Potassium Acetate/ Magnesium Sulfate/ Calcium Gluconate/ Multivitamins/ Chromium/Copper/ Manganese/Seleni/ Zn/Insulin Human Regular/Total Parenteral Nutrition/Amino Acids/Dextrose/ Fat Emulsion Intravenous (Calcium Gluconate/ Infuvite Adult/ Multitrace-5 Conc/ Novolin R Vial/ Tpn - Tpn Flu... 1,200 ml @ 50 mls/hr TPN CONT 07/19/16 22:00 07/19/16 22:00 DC Potassium Chloride 50 ml @ 50 mls/hr Q1H 07/23/16 11:00 07/23/16 12:59 DC 07/23/16 13:39 50 MLS/HR Potassium Chloride (KCl Premix 20meq) 50 ml @ 25 mls/hr Q2H 07/19/16 09:30 07/19/16 13:29 DC 07/19/16 11:09 25 MLS/HR Prednisone (Prednisone) 60 mg 1X ONCE 07/12/16 12:30 07/12/16 12:31 DC 07/12/16 12:40 60 MG Promethazine HCl/ Codeine (Phenergan With Codeine) 5 ml QID 07/12/16 17:00 07/13/16 17:18 DC Propofol (Diprivan) 1,000 mg STK-MED ONCE 07/17/16 16:36 07/19/16 08:22 DC Rocuronium [place] (Zemuron) 50 mg STK-MED ONCE 07/12/16 15:00 07/13/16 08:54 DC Scopolamine (Transderm-Scop) 1 patch Q3DAYS 07/18/16 09:00 07/24/16 07:59 1 PATCH Scopolamine 1 patch 1 patch ONCE ONCE 07/15/16 23:30 07/15/16 23:31 DC Sodium Bicarbonate 50 meq 50 meq 1X ONCE 07/15/16 16:30 07/15/16 16:34 DC 07/15/16 16:30 50 MEQ Sodium Polystyrene Sulfonate (Kayexalate) 30 gm 1X ONCE 07/15/16 08:00 07/15/16 08:08 DC Sodium Polystyrene Sulfonate 30 gm 30 gm 1X ONCE 07/16/16 08:30 07/16/16 08:34 DC 07/16/16 08:41 30 GM Sodium Acetate/ Potassium Acetate/ Magnesium Sulfate/ Calcium Gluconate/ Multivitamins/ Chromium/Copper/ Manganese/Seleni/ Zn/Insulin Human Regular/Total Parenteral Nutrition/Amino Acids/Dextrose/ Fat Emulsion Intravenous (Calcium Gluconate/ Infuvite Adult/ Multitrace-5 Conc/ Novolin R Vi... 1,512 ml @ 63 mls/hr TPN CONT 07/18/16 22:00 07/19/16 21:59 DC 07/18/16 22:03 63 MLS/HR Sodium Bicarbonate 50 meq 1X ONCE 07/16/16 08:45 07/16/16 08:46 DC 07/16/16 08:41 50 MEQ Sodium Chloride (Iv Sodium Chloride 0.9% 1000ml Bag) 1,000 ml @ 75 mls/hr [id number] 07/20/16 11:15 07/23/16 11:50 DC 07/23/16 05:31 75 MLS/HR Sodium Chloride 40 meq/Sodium Acetate 40 meq/ Magnesium Sulfate 8 meq/Calcium Gluconate 5 meq/ Multivitamins 10 ml/Chromium/ Copper/Manganese/ Seleni/Zn 1 ml/ Insulin Human Regular 10 unit/ Total Parenteral Nutrition/Amino Acids/Dextrose/ Fat Emulsion Intravenous 1,512 ml @ 63 mls/hr TPN CONT 07/16/16 22:00 07/17/16 21:59 DC 07/16/16 21:53 63 MLS/HR Sodium Chloride/ Magnesium Sulfate/ Calcium Gluconate/ Multivitamins/ Chromium/Copper/ Manganese/Seleni/ Zn/Total Parenteral Nutrition/Amino Acids/Dextrose (Sodium Chloride/ Infuvite Adult/ Multitrace-5 Conc/ Tpn - Tpn Fluid/ Trophamine/ Dextrose 70%-Water Iv Soln) 1,512 ml @ 63 mls/hr TPN CONT 07/15/16 22:00 07/16/16 21:59 DC 07/15/16 21:27 63 MLS/HR Succinylcholine Chloride (Anectine) 200 mg STK-MED ONCE 07/12/16 18:00 07/13/16 09:05 DC Vasopressin 40 unit/Dextrose 102 ml @ 6 mls/hr CONT PRN 07/16/16 05:00 07/24/16 14:38 DC 07/17/16 13:33 6 MLS/HR Vecuronium [place] 10 mg 10 mg STK-MED ONCE 07/15/16 11:03 07/15/16 11:04 DC Vecuronium [place]/Dextrose (Norcuron) 100 ml @ 0 mls/hr CONT PRN 07/12/16 21:00 07/14/16 09:31 DC 07/13/16 20:48 2.58 MLS/HR Vecuronium [place] (Norcuron Bolus) 10 mg STK-MED ONCE 07/15/16 11:00 07/16/16 08:06 DC Warfarin Sodium (Coumadin Per Pharmacy) 1 each PRN DAILY PRN 07/19/16 09:45 07/25/16 13:14 1 EACH Warfarin Sodium (Coumadin) 5 mg 1X WARF ONCE 07/25/16 16:00 07/25/16 16:01 DC 07/25/16 15:09 5 MG Warfarin Sodium 7.5 mg 7.5 mg 1X WARF ONCE 07/23/16 16:00 07/23/16 16:01 DC 07/23/16 16:53 7.5 MG Lab Laboratory Tests Test 07/25/16 11:44 07/25/16 12:27 07/25/16 18:02 07/25/16 21:10 Prothrombin Time 24.2SEC (11.7-14.0) Prothromb Time International Ratio 2.3 (0.8-1.1) Heparin Anti-Xa Act, Unfractionated 0.37IU/mL (0.30-0.70) Glucose (Fingerstick) 192mg/dL (70-99) 286mg/dL (70-99) 118mg/dL (70-99) Test 07/25/16 23:37 07/25/16 23:51 07/26/16 04:30 07/26/16 06:16 Glucose (Fingerstick) 50mg/dL (70-99) 130mg/dL (70-99) 50mg/dL (70-99) White Blood Count 18.4x10^3/uL (4.0-11.0) Red Blood Count 3.11x10^6/uL (4.30-5.70) Hemoglobin 8.7g/dL (13.0-17.5) Hematocrit 27.5% (39.0-53.0) Mean Corpuscular Volume 88fL (79-100) Mean Corpuscular Hemoglobin 28pg (25-35) Mean Corpuscular Hemoglobin Concent 32g/dL (31-37) Red Cell Distribution Width 15.5% (11.5-14.5) Platelet Count 173x10^3/uL (140-400) Neutrophils (%) (Auto) 88% (31-73) Lymphocytes (%) (Auto) 5% (24-48) Monocytes (%) (Auto) 6% (0-9) Eosinophils (%) (Auto) 0% (0-3) Basophils (%) (Auto) 0% (0-3) Neutrophils # (Auto) 16.2x10^3uL (1.8-7.7) Lymphocytes # (Auto) 1.0x10^3/uL (1.0-4.8) Monocytes # (Auto) 1.1x10^3/uL (0.0-1.1) Eosinophils # (Auto) 0.0x10^3/uL (0.0-0.7) Basophils # (Auto) 0.1x10^3/uL (0.0-0.2) Sodium Level 148mmol/L (136-145) Potassium Level 3.2mmol/L (3.5-5.1) Chloride Level 115mmol/L (98-107) Carbon Dioxide Level 28mmol/L (21-32) Anion Gap 5 (6-14) Blood Urea Nitrogen 30mg/dL (8-26) Creatinine 0.8mg/dL (0.7-1.3) Estimated GFR (Cockcroft-Gault) 114.7 Glucose Level 60mg/dL (70-99) Calcium Level 7.6mg/dL (8.5-10.1) Test 07/26/16 06:42 07/26/16 07:38 07/26/16 07:49 07/26/16 08:15 Glucose (Fingerstick) 75mg/dL (70-99) 51mg/dL (70-99) 98mg/dL (70-99) O2 Saturation 97% (92-99) Arterial Blood pH 7.46 (7.35-7.45) Arterial Blood pCO2 at Patient Temp 40mmHg (35-46) Arterial Blood pO2 at Patient Temp 99mmHg (65-108) Arterial Blood HCO3 28mmol/L (21-28) Arterial Blood Base Excess 4mmol/L (-3-3) FiO2 36% FELIBERTO GIL MD Jul 26, 2016 09:08
--- NOTE | 2016-07-26 09:10 | PDOC ---
PROGRESS NOTES Chief Complaint Chief Complaint Angioedema - angioedema, likely 2/2 to ACEI; self extubated 07/14/16 - resolved - s/p CP arrest (PEA) sec to Multiple bilateral PE (07/15) - Non-occlusive thrombus, R leg (07/15) - COPD exacerbation - Low TSH levels in a critically ill patient - DM2; insulin requiring - Oliguric Hyperkalemic renal failure - Metabolic acidosis s/p arrest - Dyslipidemia on statin - Hypotensive shock, resolved and off pressors - Acute respiratory failure - intubated again (07/15) secondary to code blue ( PEA # 2) STRIDOR History of Present Illness History of Present Illness Seen in ICU Known to me Weak today, nods, but non verbal to me Was minimally verbal to staff BP on high side Was on hydrocortisone and levophed at one point (hypotension) Was also on nicardipine gtt at one point (Hypertension) ADA diet ordered, apparently passed MEDICARE COORDINATOR 07/25 - I have my doubts he can do reg diet PLAN: Clean up MAR TAper hydrocort to 25 BID - dw renal MEDICARE COORDINATOR re eval today WOuld not feed ADA until MEDICARE COORDINATOR re eval today CT neck and soft tissue re the stridor and initial angioedema (cause of intubation first time) - no dye Dw [facility] in process (needs to stay 6 more days in house - dw SW) Vitals Vitals Vital Signs Date Time Temp Pulse Resp B/P Pulse Ox O2 Delivery O2 Flow Rate FiO2 07/26/16 07:29 99 Nasal Cannula 6.0 07/26/16 06:09 65 144/82 07/26/16 06:00 98.4 22 98.4 Physical Exam Physical Exam eyes- bilateral periorbital / subconjunctival edema General: Alert, Cooperative, No acute distress Heart: Regular rate, Normal S1, Normal S2, No murmurs, Gallops Lungs: Other (decreased breath sounds bilaterally. ) Abdomen: Normal bowel sounds, Soft, No tenderness, No hepatosplenomegaly, No masses Extremities: No clubbing, No cyanosis, No edema, Normal pulses, No tenderness/ swelling Skin: No rashes, Other (dry mucosal membranes ) Labs LABS Laboratory Tests Test 07/25/16 11:44 07/25/16 12:27 07/25/16 18:02 07/25/16 21:10 Prothrombin Time 24.2SEC (11.7-14.0) Prothromb Time International Ratio 2.3 (0.8-1.1) Heparin Anti-Xa Act, Unfractionated 0.37IU/mL (0.30-0.70) Glucose (Fingerstick) 192mg/dL (70-99) 286mg/dL (70-99) 118mg/dL (70-99) Test 07/25/16 23:37 07/25/16 23:51 07/26/16 04:30 07/26/16 06:16 Glucose (Fingerstick) 50mg/dL (70-99) 130mg/dL (70-99) 50mg/dL (70-99) White Blood Count 18.4x10^3/uL (4.0-11.0) Red Blood Count 3.11x10^6/uL (4.30-5.70) Hemoglobin 8.7g/dL (13.0-17.5) Hematocrit 27.5% (39.0-53.0) Mean Corpuscular Volume 88fL (79-100) Mean Corpuscular Hemoglobin 28pg (25-35) Mean Corpuscular Hemoglobin Concent 32g/dL (31-37) Red Cell Distribution Width 15.5% (11.5-14.5) Platelet Count 173x10^3/uL (140-400) Neutrophils (%) (Auto) 88% (31-73) Lymphocytes (%) (Auto) 5% (24-48) Monocytes (%) (Auto) 6% (0-9) Eosinophils (%) (Auto) 0% (0-3) Basophils (%) (Auto) 0% (0-3) Neutrophils # (Auto) 16.2x10^3uL (1.8-7.7) Lymphocytes # (Auto) 1.0x10^3/uL (1.0-4.8) Monocytes # (Auto) 1.1x10^3/uL (0.0-1.1) Eosinophils # (Auto) 0.0x10^3/uL (0.0-0.7) Basophils # (Auto) 0.1x10^3/uL (0.0-0.2) Sodium Level 148mmol/L (136-145) Potassium Level 3.2mmol/L (3.5-5.1) Chloride Level 115mmol/L (98-107) Carbon Dioxide Level 28mmol/L (21-32) Anion Gap 5 (6-14) Blood Urea Nitrogen 30mg/dL (8-26) Creatinine 0.8mg/dL (0.7-1.3) Estimated GFR (Cockcroft-Gault) 114.7 Glucose Level 60mg/dL (70-99) Calcium Level 7.6mg/dL (8.5-10.1) Test 07/26/16 06:42 07/26/16 07:38 07/26/16 07:49 07/26/16 08:15 Glucose (Fingerstick) 75mg/dL (70-99) 51mg/dL (70-99) 98mg/dL (70-99) O2 Saturation 97% (92-99) Arterial Blood pH 7.46 (7.35-7.45) Arterial Blood pCO2 at Patient Temp 40mmHg (35-46) Arterial Blood pO2 at Patient Temp 99mmHg (65-108) Arterial Blood HCO3 28mmol/L (21-28) Arterial Blood Base Excess 4mmol/L (-3-3) FiO2 36% Review of Systems Review of Systems limited, stridor,weak Assessment and Plan Assessmemt and Plan Problems Medical Problems: (1) COPD exacerbation Status: Acute (2) Hyperglycemia Status: Acute Problems: Comment Review of Relevant I have reviewed the following items valerie (where applicable) has been applied. Labs Laboratory Tests Test 07/24/16 13:08 07/24/16 19:02 07/24/16 21:19 07/24/16 23:42 Glucose (Fingerstick) 184mg/dL (70-99) 171mg/dL (70-99) 158mg/dL (70-99) 164mg/dL (70-99) Test 07/25/16 05:30 07/25/16 05:32 07/25/16 11:44 07/25/16 12:27 White Blood Count 18.7x10^3/uL (4.0-11.0) Red Blood Count 3.62x10^6/uL (4.30-5.70) Hemoglobin 10.2g/dL (13.0-17.5) Hematocrit 31.5% (39.0-53.0) Mean Corpuscular Volume 87fL (79-100) Mean Corpuscular Hemoglobin 28pg (25-35) Mean Corpuscular Hemoglobin Concent 32g/dL (31-37) Red Cell Distribution Width 15.2% (11.5-14.5) Platelet Count 220x10^3/uL (140-400) Neutrophils (%) (Auto) 84% (31-73) Lymphocytes (%) (Auto) 7% (24-48) Monocytes (%) (Auto) 8% (0-9) Eosinophils (%) (Auto) 0% (0-3) Basophils (%) (Auto) 1% (0-3) Neutrophils # (Auto) 15.7x10^3uL (1.8-7.7) Lymphocytes # (Auto) 1.3x10^3/uL (1.0-4.8) Monocytes # (Auto) 1.6x10^3/uL (0.0-1.1) Eosinophils # (Auto) 0.0x10^3/uL (0.0-0.7) Basophils # (Auto) 0.1x10^3/uL (0.0-0.2) Sodium Level 153mmol/L (136-145) Potassium Level 3.8mmol/L (3.5-5.1) Chloride Level 115mmol/L (98-107) Carbon Dioxide Level 28mmol/L (21-32) Anion Gap 10 (6-14) Blood Urea Nitrogen 34mg/dL (8-26) Creatinine 0.9mg/dL (0.7-1.3) Estimated GFR (Cockcroft-Gault) 100.1 Glucose Level 183mg/dL (70-99) Calcium Level 8.5mg/dL (8.5-10.1) Glucose (Fingerstick) 168mg/dL (70-99) 192mg/dL (70-99) Prothrombin Time 24.2SEC (11.7-14.0) Prothromb Time International Ratio 2.3 (0.8-1.1) Heparin Anti-Xa Act, Unfractionated 0.37IU/mL (0.30-0.70) Test 07/25/16 18:02 07/25/16 21:10 07/25/16 23:37 07/25/16 23:51 Glucose (Fingerstick) 286mg/dL (70-99) 118mg/dL (70-99) 50mg/dL (70-99) 130mg/dL (70-99) Test 07/26/16 04:30 07/26/16 06:16 07/26/16 06:42 07/26/16 07:38 White Blood Count 18.4x10^3/uL (4.0-11.0) Red Blood Count 3.11x10^6/uL (4.30-5.70) Hemoglobin 8.7g/dL (13.0-17.5) Hematocrit 27.5% (39.0-53.0) Mean Corpuscular Volume 88fL (79-100) Mean Corpuscular Hemoglobin 28pg (25-35) Mean Corpuscular Hemoglobin Concent 32g/dL (31-37) Red Cell Distribution Width 15.5% (11.5-14.5) Platelet Count 173x10^3/uL (140-400) Neutrophils (%) (Auto) 88% (31-73) Lymphocytes (%) (Auto) 5% (24-48) Monocytes (%) (Auto) 6% (0-9) Eosinophils (%) (Auto) 0% (0-3) Basophils (%) (Auto) 0% (0-3) Neutrophils # (Auto) 16.2x10^3uL (1.8-7.7) Lymphocytes # (Auto) 1.0x10^3/uL (1.0-4.8) Monocytes # (Auto) 1.1x10^3/uL (0.0-1.1) Eosinophils # (Auto) 0.0x10^3/uL (0.0-0.7) Basophils # (Auto) 0.1x10^3/uL (0.0-0.2) Sodium Level 148mmol/L (136-145) Potassium Level 3.2mmol/L (3.5-5.1) Chloride Level 115mmol/L (98-107) Carbon Dioxide Level 28mmol/L (21-32) Anion Gap 5 (6-14) Blood Urea Nitrogen 30mg/dL (8-26) Creatinine 0.8mg/dL (0.7-1.3) Estimated GFR (Cockcroft-Gault) 114.7 Glucose Level 60mg/dL (70-99) Calcium Level 7.6mg/dL (8.5-10.1) Glucose (Fingerstick) 50mg/dL (70-99) 75mg/dL (70-99) 51mg/dL (70-99) Test 07/26/16 07:49 07/26/16 08:15 Glucose (Fingerstick) 98mg/dL (70-99) O2 Saturation 97% (92-99) Arterial Blood pH 7.46 (7.35-7.45) Arterial Blood pCO2 at Patient Temp 40mmHg (35-46) Arterial Blood pO2 at Patient Temp 99mmHg (65-108) Arterial Blood HCO3 28mmol/L (21-28) Arterial Blood Base Excess 4mmol/L (-3-3) FiO2 36% Laboratory Tests Test 07/25/16 11:44 07/25/16 12:27 07/25/16 18:02 07/25/16 21:10 Prothrombin Time 24.2SEC (11.7-14.0) Prothromb Time International Ratio 2.3 (0.8-1.1) Heparin Anti-Xa Act, Unfractionated 0.37IU/mL (0.30-0.70) Glucose (Fingerstick) 192mg/dL (70-99) 286mg/dL (70-99) 118mg/dL (70-99) Test 07/25/16 23:37 07/25/16 23:51 07/26/16 04:30 07/26/16 06:16 Glucose (Fingerstick) 50mg/dL (70-99) 130mg/dL (70-99) 50mg/dL (70-99) White Blood Count 18.4x10^3/uL (4.0-11.0) Red Blood Count 3.11x10^6/uL (4.30-5.70) Hemoglobin 8.7g/dL (13.0-17.5) Hematocrit 27.5% (39.0-53.0) Mean Corpuscular Volume 88fL (79-100) Mean Corpuscular Hemoglobin 28pg (25-35) Mean Corpuscular Hemoglobin Concent 32g/dL (31-37) Red Cell Distribution Width 15.5% (11.5-14.5) Platelet Count 173x10^3/uL (140-400) Neutrophils (%) (Auto) 88% (31-73) Lymphocytes (%) (Auto) 5% (24-48) Monocytes (%) (Auto) 6% (0-9) Eosinophils (%) (Auto) 0% (0-3) Basophils (%) (Auto) 0% (0-3) Neutrophils # (Auto) 16.2x10^3uL (1.8-7.7) Lymphocytes # (Auto) 1.0x10^3/uL (1.0-4.8) Monocytes # (Auto) 1.1x10^3/uL (0.0-1.1) Eosinophils # (Auto) 0.0x10^3/uL (0.0-0.7) Basophils # (Auto) 0.1x10^3/uL (0.0-0.2) Sodium Level 148mmol/L (136-145) Potassium Level 3.2mmol/L (3.5-5.1) Chloride Level 115mmol/L (98-107) Carbon Dioxide Level 28mmol/L (21-32) Anion Gap 5 (6-14) Blood Urea Nitrogen 30mg/dL (8-26) Creatinine 0.8mg/dL (0.7-1.3) Estimated GFR (Cockcroft-Gault) 114.7 Glucose Level 60mg/dL (70-99) Calcium Level 7.6mg/dL (8.5-10.1) Test 07/26/16 06:42 07/26/16 07:38 07/26/16 07:49 07/26/16 08:15 Glucose (Fingerstick) 75mg/dL (70-99) 51mg/dL (70-99) 98mg/dL (70-99) O2 Saturation 97% (92-99) Arterial Blood pH 7.46 (7.35-7.45) Arterial Blood pCO2 at Patient Temp 40mmHg (35-46) Arterial Blood pO2 at Patient Temp 99mmHg (65-108) Arterial Blood HCO3 28mmol/L (21-28) Arterial Blood Base Excess 4mmol/L (-3-3) FiO2 36% Microbiology 07/15/16 Blood Culture - Final, Complete NO GROWTH AFTER 5 DAYS 07/14/16 Urine Culture - Final, Complete 07/14/16 Urine Culture Result 1 (MARÍA) - Final, Complete 07/14/16 Urine Culture Result 2 (MARÍA) - Final, Complete 07/14/16 Antimicrobic Susceptibility - Final, Complete Medications Current Medications Albuterol/ Ipratropium (Duoneb) 6 ml 1X ONCE NEB Last administered on 12:34; Start 07/12/16 at 12:30; Stop 07/12/16 at 12:31; Status DC Prednisone 60 mg 60 mg 1X ONCE PO Last administered on 07/12/16 12:40; Start 07/12/16 at 12:30; Stop 07/12/16 at 12:31; Status DC Sodium Chloride (Iv Sodium Chloride 0.9% 1000ml Bag) 1,000 ml @ 1,000 mls/hr 1X ONCE IV Last administered on 07/12/16 13:12; Start 07/12/16 at 13:15; Stop 07/12/16 at 14:14; Status DC Insulin Human Regular (Novolin R Vial) 10 unit 1X ONCE IV Last administered on 07/12/16 13:16; Start 07/12/16 at 13:15; Stop 07/12/16 at 13:16; Status DC Diphenhydramine HCl (Benadryl) 50 mg STK-MED ONCE .ROUTE ; Start 07/12/16 at 14: 55; Stop 07/12/16 at 14:56; Status DC Diphenhydramine HCl (Benadryl) 50 mg 1X ONCE IVP Last administered on 15:15; Start 07/12/16 at 15:15; Stop 07/12/16 at 15:16; Status DC Atorvastatin Calcium (Lipitor) 40 mg HS PO Last administered on 07/23/16 20:45 ; Start 07/12/16 at 21:00; Stop 07/24/16 at 13:39; Status DC Diltiazem HCl (Cardizem 24hr Cd) 240 mg DAILY PO ; Start 07/12/16 at 16:30; Stop 07/13/16 at 17:18; Status DC Insulin Aspart (Novolog) 10 units TIDAC SQ ; Start 07/12/16 at 16:30; Stop 07/12 at 16:30; Status DC Insulin Detemir (Levemir) 20 units QHS SQ ; Start 07/12/16 at 21:00; Stop at 21:00; Status DC Promethazine HCl/ Codeine (Phenergan With Codeine) 5 ml QID PO ; Start 07/12/16 at 17:00; Stop 07/13/16 at 17:18; Status DC Non-Formulary Medication 2 puff BID IH ; Start 07/12/16 at 21:00; Status UNV Non-Formulary Medication 2.5 gm DAILY IH ; Start 07/13/16 at 09:00; Status UNV Budesonide (Pulmicort) 0.5 mg RTBID NEB Last administered on 07/13/16 07:30; Start 07/12/16 at 20:00; Stop 07/13/16 at 11:27; Status DC Albuterol/ Ipratropium (Duoneb) 3 ml RTQID NEB Last administered on 07/16/16 07:47; Start 07/12/16 at 20:00; Stop 07/16/16 at 08:38; Status DC Methylprednisolone Sodium Succinate (Solu-Medrol 40mg Vial) 60 mg 1X ONCE IV Last administered on 07/12/16 16:06; Start 07/12/16 at 16:30; Stop 07/12/16 at 16:31; Status DC Methylprednisolone Sodium Succinate (Solu-Medrol 40mg Vial) 60 mg DAILY IV ; Start 07/13/16 at 09:00; Stop 07/13/16 at 09:00; Status DC Pantoprazole Sodium (Protonix Vial) 40 mg DAILY IVP Last administered on 08:43; Start 07/13/16 at 09:00; Stop 07/17/16 at 20:37; Status DC Diphenhydramine HCl 25 mg 25 mg PRN Q6HRS PRN IVP ANAPHYLAXIS Last administered on 07/12/16 16:06; Start 07/12/16 at 16:00; Stop 07/23/16 at 04:47 ; Status DC Sodium Chloride (Iv Sodium Chloride 0.9% 1000ml Bag) 1,000 ml @ 150 mls/hr Q6H40M IV Last administered on 07/14/16 01:21; Start 07/12/16 at 16:30; Stop 07/14/16 at 09:31; Status DC Albuterol/ Ipratropium (Duoneb) 3 ml QID NEB ; Start 07/12/16 at 17:00; Status UNV Albuterol Sulfate (Ventolin Neb Soln) 2.5 mg PRN Q2HR PRN NEB SHORTNESS OF BREATH Last administered on 07/25/16 23:44; Start 07/12/16 at 16:00 Insulin Aspart (Novolog) 0-9 UNITS QID SQ Last administered on 07/14/16 08:37 ; Start 07/12/16 at 17:00; Stop 07/14/16 at 09:31; Status DC Dextrose 12.5 gm PRN Q15MIN PRN IV SEE COMMENTS; Start 07/12/16 at 16:00; Stop 07/15/16 at 12:46; Status DC Insulin Detemir (Levemir) 15 units QHS SQ ; Start 07/12/16 at 21:00; Stop at 21:00; Status DC Enoxaparin Sodium (Lovenox 40mg Syringe) 40 mg DAILY SQ Last administered on 08:54; Start 07/12/16 at 16:30; Stop 07/15/16 at 14:28; Status DC Insulin Detemir (Levemir) 20 units QHS SQ Last administered on 07/12/16 23:49 ; Start 07/12/16 at 21:00; Stop 07/13/16 at 15:18; Status DC Succinylcholine Chloride 200 mg 200 mg STK-MED ONCE .ROUTE ; Start 07/12/16 at 17:46; Stop 07/12/16 at 17:47; Status DC Propofol (Diprivan) 100 ml @ As Directed STK-MED ONCE IV ; Start 07/12/16 at 17 :46; Stop 07/12/16 at 17:47; Status DC Lidocaine HCl 100 mg STK-MED ONCE .ROUTE ; Start 07/12/16 at 18:02; Stop at 18:03; Status DC Ketamine HCl 500 mg 1X ONCE IV ; Start 07/12/16 at 18:30; Stop 07/12/16 at 18: 31; Status DC Midazolam HCl (Versed) 5 mg STK-MED ONCE .ROUTE ; Start 07/12/16 at 18:14; Stop 07/12/16 at 18:15; Status DC Midazolam HCl (Versed) 2 mg 1X ONCE IV ; Start 07/12/16 at 18:30; Stop at 18:31; Status DC Glycopyrrolate (Robinul) 1 mg 1X ONCE IV ; Start 07/12/16 at 18:30; Stop at 18:31; Status DC Oxymetazoline HCl (Afrin) 2 spray 1X ONCE NS ; Start 07/12/16 at 18:30; Stop at 18:31; Status DC Lidocaine HCl 30 ml STK-MED ONCE .ROUTE ; Start 07/12/16 at 18:19; Stop at 18:20; Status DC Vecuronium [place] 6 mg 6 mg PRN Q4HRS PRN IV ANXIETY / AGITATION Last administered on 07/12/16 19:55; Start 07/12/16 at 19:00; Stop 07/15/16 at 07:58 ; Status DC Propofol (Diprivan) 100 ml @ 0 mls/hr CONT PRN IV SEE I/O RECORD Last administered on 07/14/16 13:42; Start 07/12/16 at 19:00; Stop 07/15/16 at 07:58 ; Status DC Insulin Aspart 10 units 10 units 1X ONCE SQ Last administered on 07/12/16 19: 41; Start 07/12/16 at 19:45; Stop 07/12/16 at 19:46; Status DC Vecuronium [place]worth 100 mg/ Dextrose 100 ml @ 0 mls/hr CONT PRN IV SEE I/O RECORD Last administered on 07/13/16 20:48; Start 07/12/16 at 21:00; Stop 07/14 at 09:31; Status DC Fentanyl Citrate (Fentanyl 600 Mcg/30 ml GREEN HIDE INSPECTOR) 30 ml @ 0 mls/hr CONT PRN IV PROTOCOL Last administered on 07/14/16 09:33; Start 07/12/16 at 22:00; Stop at 07:58; Status DC Chlorhexidine Gluconate (Peridex) 15 ml BID MM Last administered on 07/23/16 08:22; Start 07/13/16 at 09:00; Stop 07/23/16 at 09:42; Status DC Methylprednisolone Sodium Succinate (Solu-Medrol 125mg Vial) 125 mg BID IV Last administered on 07/14/16 21:02; Start 07/13/16 at 09:00; Stop 07/15/16 at 07:58; Status DC Rocuronium [place] (Zemuron) 50 mg STK-MED ONCE .ROUTE ; Start 07/12/16 at 15:00 ; Stop 07/13/16 at 08:54; Status DC Glycopyrrolate (Robinul) 1 mg STK-MED ONCE .ROUTE ; Start 07/12/16 at 15:00; Stop 07/13/16 at 08:54; Status DC Lidocaine HCl 30 ml STK-MED ONCE .ROUTE ; Start 07/12/16 at 18:00; Stop at 09:05; Status DC Midazolam HCl (Versed) 5 mg STK-MED ONCE .ROUTE ; Start 07/12/16 at 18:00; Stop 07/13/16 at 09:05; Status DC Propofol (Diprivan) 1,000 mg STK-MED ONCE IV ; Start 07/12/16 at 18:00; Stop at 09:05; Status DC Succinylcholine Chloride (Anectine) 200 mg STK-MED ONCE .ROUTE ; Start 07/12/16 at 18:00; Stop 07/13/16 at 09:05; Status DC Multi-Ingred Cream/Lotion/Oil/ Oint (Artificial Tears Eye Oint) 1 margie PRN Q1HR PRN OU DRY EYE Last administered on 07/13/16 15:45; Start 07/13/16 at 11:00 Ketamine HCl 500 mg STK-MED ONCE .ROUTE ; Start 07/12/16 at 18:30; Stop at 12:05; Status DC Insulin Aspart (Novolog) 10 units 1X STAT SQ Last administered on 07/13/16 12 :36; Start 07/13/16 at 12:17; Stop 07/13/16 at 12:20; Status DC Insulin Aspart (Novolog) 10 units 1X ONCE SQ Last administered on 07/13/16 14 :31; Start 07/13/16 at 14:30; Stop 07/13/16 at 14:31; Status DC Insulin Detemir (Levemir) 40 units QHS SQ Last administered on 07/13/16 20:50 ; Start 07/13/16 at 21:00; Stop 07/14/16 at 09:31; Status DC Benzocaine (Hurricaine One) 1 spray STK-MED ONCE .ROUTE ; Start 07/12/16 at 12: 00; Stop 07/13/16 at 16:00; Status DC Lidocaine HCl 5 margie 5 margie STK-MED ONCE TP ; Start 07/12/16 at 12:00; Stop at 16:00; Status DC Insulin Human Regular/Sodium Chloride (Novolin R Vial/ Iv Normal Saline 150ml) 151.5 ml @ 0 mls/hr CONT PRN IV SEE I/O RECORD Last administered on 07/14/16 10:01; Start 07/14/16 at 09:30; Stop 07/15/16 at 07:58; Status DC Info 1 each 1 each PRN DAILY PRN MC SEE COMMENTS Last administered on 08:27; Start 07/14/16 at 09:30; Stop 07/19/16 at 16:30; Status DC Magnesium Sulfate/ Dextrose 50 ml @ 25 mls/hr PRN DAILY PRN IV for Mag < 1.7 on am labs; Start 07/14/16 at 11:15; Stop 07/15/16 at 07:58; Status DC Sodium Chloride 500 ml @ 500 mls/hr QID PRN IV UO< 30cc/hr over previous 6hrs ; Start 07/14/16 at 11:15; Stop 07/14/16 at 11:26; Status DC Sodium Chloride 500 ml @ 500 mls/hr PRN QID PRN IV UO< 30cc/hr over previous 6hrs Last administered on 07/16/16 10:00; Start 07/14/16 at 11:26 Ceftriaxone Sodium 1 gm/ Sodium Chloride 50 ml @ 100 mls/hr Q24H IV Last administered on 07/19/16 12:25; Start 07/14/16 at 12:00; Stop 07/20/16 at 12:29 ; Status DC Sodium Chloride/ Magnesium Sulfate/ Calcium Gluconate/ Multivitamins/ Chromium/ Copper/ Manganese/Seleni/ Zn/Total Parenteral Nutrition/Amino Acids/Dextrose ( Sodium Chloride/ Infuvite Adult/ Multitrace-5 Conc/ Tpn - Tpn Fluid/ Trophamine / Dextrose 70%-Water Iv Soln) 1,512 ml @ 63 mls/hr TPN CONT IV Last administered on 07/14/16 22:29; Start 07/14/16 at 22:00; Stop 07/15/16 at 21:59 ; Status DC Hydralazine HCl (Apresoline) 10 mg PRN Q4HRS PRN IVP ELEVATED BP, SEE COMMENTS Last administered on 07/24/16 13:01; Start 07/14/16 at 22:30; Stop 07/24/16 at 14 :38; Status DC Methylprednisolone Sodium Succinate (Solu-Medrol 125mg Vial) 125 mg DAILY IV Last administered on 07/15/16 08:55; Start 07/15/16 at 09:00; Stop 07/16/16 at 08:35; Status DC Insulin Aspart (Novolog) 0-9 UNITS TIDWMEALS SQ Last administered on 07/15/16 16:16; Start 07/15/16 at 08:00; Stop 07/16/16 at 07:16; Status DC Dextrose 12.5 gm PRN Q15MIN PRN IV SEE COMMENTS; Start 07/15/16 at 08:00; Stop 07/19/16 at 10:53; Status DC Insulin Detemir (Levemir) 20 units QHS SQ Last administered on 07/15/16 21:48 ; Start 07/15/16 at 21:00; Stop 07/16/16 at 07:16; Status DC Insulin Aspart (Novolog) 10 units TIDAC SQ ; Start 07/15/16 at 11:30; Stop 07/16 at 07:16; Status DC Sodium Polystyrene Sulfonate (Kayexalate) 30 gm 1X ONCE PO ; Start 07/15/16 at 08:00; Stop 07/15/16 at 08:08; Status DC Hydrochlorothiazide (Microzide) 12.5 mg DAILY PO ; Start 07/15/16 at 09:00; Stop 07/16/16 at 07:39; Status DC Isosorbide Mononitrate (Imdur) 120 mg DAILY PO ; Start 07/15/16 at 09:00; Stop 07/15/16 at 09:00; Status DC Diltiazem HCl (Cardizem 24hr Cd) 240 mg DAILY PO ; Start 07/15/16 at 09:00; Stop 07/16/16 at 07:39; Status DC Guaifenesin (Mucinex) 600 mg BID PO ; Start 07/15/16 at 09:00; Stop 07/16/16 at 07:39; Status DC Mupirocin (Bactroban) 1 margie BID NS Last administered on 07/25/16 22:46; Start 07/15/16 at 09:00 Isosorbide Mononitrate (Imdur) 120 mg DAILY PO ; Start 07/15/16 at 09:00; Stop 07/16/16 at 07:39; Status DC Sodium Bicarbonate 50 meq 1X ONCE IV Last administered on 07/15/16 15:22; Start 07/15/16 at 10:45; Stop 07/15/16 at 10:46; Status DC Sodium Bicarbonate 50 meq 50 meq STK-MED ONCE .ROUTE ; Start 07/15/16 at 10:34; Stop 07/15/16 at 10:35; Status DC Dopamine HCl/ Dextrose 250 ml @ As Directed STK-MED ONCE IV ; Start 07/15/16 at 10:37; Stop 07/15/16 at 10:38; Status DC Midazolam HCl (Versed) 5 mg STK-MED ONCE .ROUTE ; Start 07/15/16 at 10:41; Stop 07/15/16 at 10:42; Status DC Iohexol 100 ml 100 ml STK-MED ONCE .ROUTE ; Start 07/15/16 at 10:45; Stop at 10:46; Status DC Heparin Sodium/ Sodium Chloride 1,500 ml @ As Directed STK-MED ONCE .ROUTE ; Start 07/15/16 at 10:45; Stop 07/15/16 at 10:46; Status DC Lidocaine HCl 20 ml 20 ml STK-MED ONCE .ROUTE ; Start 07/15/16 at 10:45; Stop at 10:46; Status DC Dopamine HCl/ Dextrose 250 ml @ 16.255 mls/ hr CONT PRN IV SEE I/O RECORD Last administered on 07/16/16 23:10; Start 07/15/16 at 11:00; Stop 07/26/16 at 09:04; Status DC Sodium Chloride 1,000 ml @ 1,000 mls/hr 1X ONCE IV Last administered on 11:00; Start 07/15/16 at 11:00; Stop 07/15/16 at 11:59; Status DC Norepinephrine Bitartrate/Sodium Chloride (Levophed Vial/ Iv Sodium Chloride 0.9 % 250ml) 258 ml @ 0 mls/hr CONT PRN IV SEE I/O RECORD Last administered on 07/17 00:51; Start 07/15/16 at 11:00; Stop 07/26/16 at 09:04; Status DC Midazolam HCl (Versed) 5 mg STK-MED ONCE .ROUTE ; Start 07/15/16 at 10:54; Stop 07/15/16 at 10:55; Status DC Fentanyl Citrate (Fentanyl 2ml Vial) 100 mcg STK-MED ONCE .ROUTE ; Start at 11:02; Stop 07/15/16 at 11:03; Status DC Vecuronium [place] 10 mg 10 mg STK-MED ONCE IV ; Start 07/15/16 at 11:03; Stop 07/15/16 at 11:04; Status DC Midazolam HCl (Versed 100mg/ 100ml Premix) 100 ml @ As Directed STK-MED ONCE IV ; Start 07/15/16 at 11:03; Stop 07/15/16 at 11:04; Status DC Iohexol (Omnipaque 300 Mg/ml) 112 ml 1X ONCE IART Last administered on 11:56; Start 07/15/16 at 12:00; Stop 07/15/16 at 12:01; Status DC Lidocaine HCl 10 ml 1X ONCE IJ Last administered on 07/15/16 11:57; Start at 12:00; Stop 07/15/16 at 12:01; Status DC Heparin Sodium/ Sodium Chloride 1000 unit 1,000 unit 1X ONCE IART ; Start 07/15 at 12:00; Stop 07/15/16 at 12:01; Status DC Sodium Chloride/ Magnesium Sulfate/ Calcium Gluconate/ Multivitamins/ Chromium/ Copper/ Manganese/Seleni/ Zn/Total Parenteral Nutrition/Amino Acids/Dextrose ( Sodium Chloride/ Infuvite Adult/ Multitrace-5 Conc/ Tpn - Tpn Fluid/ Trophamine / Dextrose 70%-Water Iv Soln) 1,512 ml @ 63 mls/hr TPN CONT IV Last administered on 07/15/16 21:27; Start 07/15/16 at 22:00; Stop 07/16/16 at 21:59 ; Status DC Iohexol (Omnipaque 300 Mg/ml) 75 ml 1X ONCE IV Last administered on 07/15/16 13:43; Start 07/15/16 at 13:15; Stop 07/15/16 at 13:16; Status DC Info (Do NOT chart on this entry -- for MONITORING) 1 each PRN DAILY PRN MC SEE COMMENTS; Start 07/15/16 at 13:15; Stop 07/17/16 at 13:14; Status DC Heparin Sodium (Porcine) 7000 unit 7,000 unit 1X ONCE IV Last administered on 07/15/16 15:27; Start 07/15/16 at 14:45; Stop 07/15/16 at 14:46; Status DC Heparin Sodium/ Dextrose 500 ml @ 0 mls/hr CONT PRN IV SEE I/O RECORD Last administered on 07/17/16 18:41; Start 07/15/16 at 14:30; Stop 07/18/16 at 10:21 ; Status DC Heparin Sodium (Porcine) 2,600 unit PRN Q6HRS PRN IV FOR UFH LEVEL LESS THAN 0.2; Start 07/15/16 at 14:30; Stop 07/18/16 at 10:21; Status DC Heparin Sodium (Porcine) 1,300 unit PRN Q6HRS PRN IV FOR UFH LEVEL 0.2 - 0.29; Start 07/15/16 at 14:30; Stop 07/18/16 at 10:21; Status DC Warfarin Sodium (Coumadin Per Pharmacy) 1 each PRN DAILY PRN MC PER PROTOCOL; Start 07/15/16 at 14:30; Stop 07/15/16 at 14:30; Status DC Sodium Bicarbonate 50 meq 50 meq 1X ONCE IV Last administered on 07/15/16 16: 30; Start 07/15/16 at 16:30; Stop 07/15/16 at 16:34; Status DC Alteplase, Recombinant (Activase) 100 ml @ 50 mls/hr 1X ONCE IV Last administered on 07/15/16 17:30; Start 07/15/16 at 17:30; Stop 07/15/16 at 19:29 ; Status DC Fentanyl Citrate (Fentanyl 2ml Vial) 25 mcg PRN Q1HR PRN IV COMM; Start at 22:30; Stop 07/16/16 at 07:17; Status DC Fentanyl Citrate (Fentanyl 2ml Vial) 50 mcg PRN Q1HR PRN IV COMM Last administered on 07/16/16 05:30; Start 07/15/16 at 22:30; Stop 07/16/16 at 07:17 ; Status DC Scopolamine (Transderm-Scop) 1 patch Q3DAYS TD Last administered on 07/24/16 07 :59; Start 07/18/16 at 09:00 Scopolamine 1 patch 1 patch ONCE ONCE TD ; Start 07/15/16 at 23:30; Stop at 23:31; Status DC Sodium Chloride 1,000 ml @ 1,000 mls/hr 1X ONCE IV Last administered on 02:38; Start 07/16/16 at 01:00; Stop 07/16/16 at 01:59; Status DC Midazolam HCl 100 ml @ As Directed STK-MED ONCE IV ; Start 07/16/16 at 01:00; Stop 07/16/16 at 01:01; Status DC Midazolam HCl 100 ml @ 0 mls/hr CONT PRN IV SEE I/O RECORD Last administered on 07/19/16 07:52; Start 07/16/16 at 01:15; Stop 07/26/16 at 09:04; Status DC Vasopressin 40 unit/Dextrose 102 ml @ 6 mls/hr CONT PRN IV SEE I/O RECORD Last administered on 07/17/16 13:33; Start 07/16/16 at 05:00; Stop 07/24/16 at 14:38 ; Status DC Insulin Human Regular 150 unit/ Sodium Chloride 151.5 ml @ 0 mls/hr CONT PRN IV SEE I/O RECORD Last administered on 07/17/16 02:26; Start 07/16/16 at 05:00 ; Stop 07/17/16 at 10:10; Status DC Fentanyl Citrate (Fentanyl 600 Mcg/30 ml [employer]) 30 ml @ 0 mls/hr CONT PRN IV PROTOCOL Last administered on 07/25/16 17:57; Start 07/16/16 at 07:15; Stop 07/26 at 09:04; Status DC Vecuronium Ackworth (Norcuron Bolus) 10 mg STK-MED ONCE IV ; Start 07/15/16 at 11 :00; Stop 07/16/16 at 08:06; Status DC Fentanyl Citrate (Fentanyl 2ml Vial) 100 mcg STK-MED ONCE .ROUTE ; Start at 11:00; Stop 07/16/16 at 08:06; Status DC Midazolam HCl (Versed) 10 mg STK-MED ONCE .ROUTE ; Start 07/15/16 at 11:00; Stop 07/16/16 at 08:06; Status DC Dopamine HCl/ Dextrose 400 mg STK-MED ONCE IV ; Start 07/15/16 at 11:00; Stop at 08:06; Status DC Sodium Bicarbonate 50 meq STK-MED ONCE .ROUTE ; Start 07/15/16 at 11:00; Stop at 08:06; Status DC Hydrocortisone Sodium Succinate (Solu-Cortef) 100 mg Q8HRS IV Last administered on 07/19/16 05:50; Start 07/16/16 at 09:00; Stop 07/19/16 at 09:30 ; Status DC Sodium Polystyrene Sulfonate 30 gm 30 gm 1X ONCE PO Last administered on 08:41; Start 07/16/16 at 08:30; Stop 07/16/16 at 08:34; Status DC Albumin Human (Plasmanate) 500 ml @ 125 mls/hr PRN Q6HRS PRN IV for CVP < 10; MAP < 65 Last administered on 07/17/16 08:12; Start 07/16/16 at 08:30; Stop 07/24/16 at 14:38; Status DC Sodium Bicarbonate 50 meq 1X ONCE IV Last administered on 07/16/16 08:41; Start 07/16/16 at 08:45; Stop 07/16/16 at 08:46; Status DC Info (Anti-Coagulation Monitoring By Pharmacy) 1 each PRN DAILY PRN MC SEE COMMENTS; Start 07/16/16 at 08:45; Status Cancel Ipratropium Ackworth (Atrovent) 0.5 mg RTQID NEB Last administered on 07/26/16 07:24; Start 07/16/16 at 12:00 Lidocaine/Sodium Bicarbonate (Buffered Lidocaine 1%) 3 ml 1X ONCE IJ Last administered on 07/16/16 10:43; Start 07/16/16 at 09:15; Stop 07/16/16 at 09:16 ; Status DC Heparin Sodium/ Sodium Chloride 60 unit 1X ONCE IV Last administered on 10:44; Start 07/16/16 at 09:15; Stop 07/16/16 at 09:16; Status DC Heparin Sodium (Porcine) 2500 unit 2,500 unit 1X ONCE INT CAT Last administered on 07/16/16 10:44; Start 07/16/16 at 09:15; Stop 07/16/16 at 09:16 ; Status DC Sodium Chloride 40 meq/Sodium Acetate 40 meq/ Magnesium Sulfate 8 meq/Calcium Gluconate 5 meq/ Multivitamins 10 ml/Chromium/ Copper/Manganese/ Seleni/Zn 1 ml / Insulin Human Regular 10 unit/ Total Parenteral Nutrition/Amino Acids/Dextrose / Fat Emulsion Intravenous 1,512 ml @ 63 mls/hr TPN CONT IV Last administered on 07/16/16 21:53; Start 07/16/16 at 22:00; Stop 07/17/16 at 21:59 ; Status DC Pantoprazole Sodium 80 mg/ Sodium Chloride 100 ml @ 10 mls/hr Q10H IV Last administered on 07/21/16 10:10; Start 07/17/16 at 06:45; Stop 07/21/16 at 12:21 ; Status DC Sodium Acetate/ Potassium Acetate/ Magnesium Sulfate/ Calcium Gluconate/ Multivitamins/ Chromium/Copper/ Manganese/Seleni/ Zn/Insulin Human Regular/ Total Parenteral Nutrition/Amino Acids/Dextrose/ Fat Emulsion Intravenous ( Calcium Gluconate/ Infuvite Adult/ Multitrace-5 Conc/ Novolin R Vi... 1,512 ml @ 63 mls/hr TPN CONT IV Last administered on 07/17/16 21:49; Start 07/17/16 at 22:00; Stop 07/18/16 at 21:59; Status DC Insulin Detemir (Levemir) 25 units BID SQ Last administered on 07/17/16 20:51 ; Start 07/17/16 at 10:30; Stop 07/18/16 at 08:12; Status DC Insulin Aspart (Novolog) 0-9 UNITS TIDWMEALS SQ Last administered on 07/18/16 10:03; Start 07/17/16 at 12:00; Stop 07/18/16 at 11:55; Status DC Dextrose 12.5 gm PRN Q15MIN PRN IV SEE COMMENTS; Start 07/17/16 at 10:15; Status UNV Iohexol (Omnipaque 300 Mg/ml) 100 ml STK-MED ONCE .ROUTE ; Start 07/17/16 at 10: 45; Stop 07/17/16 at 10:46; Status DC Lidocaine/Sodium Bicarbonate 20 ml 20 ml STK-MED ONCE IJ ; Start 07/17/16 at 10: 45; Stop 07/17/16 at 10:46; Status DC Heparin Sodium/ Sodium Chloride 500 ml @ As Directed STK-MED ONCE .ROUTE ; Start 07/17/16 at 10:46; Stop 07/17/16 at 10:47; Status DC Heparin Sodium/ Sodium Chloride 1,000 unit 1X ONCE IART Last administered on 11:27; Start 07/17/16 at 11:15; Stop 07/17/16 at 11:26; Status DC Lidocaine/Sodium Bicarbonate (Buffered Lidocaine 1%) 3 ml 1X ONCE IJ Last administered on 07/17/16 11:15; Start 07/17/16 at 11:15; Stop 07/17/16 at 11:26 ; Status DC Iohexol (Omnipaque 300 Mg/ml) 40 ml 1X ONCE IART Last administered on 11:26; Start 07/17/16 at 11:15; Stop 07/17/16 at 11:26; Status DC Info (Do NOT chart on this entry -- for MONITORING) 1 each PRN DAILY PRN MC SEE COMMENTS; Start 07/17/16 at 11:30; Stop 07/19/16 at 11:29; Status DC Calcium Chloride 2,000 mg STK-MED ONCE IV ; Start 07/16/16 at 13:02; Stop at 13:03; Status DC Epinephrine HCl 4 mg STK-MED ONCE .ROUTE ; Start 07/16/16 at 13:02; Stop at 13:03; Status DC Furosemide 40 mg 40 mg 1X ONCE IVP Last administered on 07/17/16 16:45; Start 07/17/16 at 16:45; Stop 07/17/16 at 16:47; Status DC Propofol (Diprivan) 100 ml @ As Directed STK-MED ONCE IV ; Start 07/17/16 at 16 :36; Stop 07/17/16 at 16:37; Status DC Insulin Detemir (Levemir) 35 units BID SQ Last administered on 07/18/16 10:00 ; Start 07/18/16 at 09:00; Stop 07/18/16 at 11:55; Status DC Insulin Aspart (Novolog) 10 units Q6HRS SQ ; Start 07/18/16 at 12:00; Stop 07/18 at 12:00; Status DC Insulin Aspart 20 units 20 units 1X ONCE SQ Last administered on 07/18/16 10: 02; Start 07/18/16 at 08:15; Stop 07/18/16 at 11:56; Status DC Sodium Acetate/ Potassium Acetate/ Magnesium Sulfate/ Calcium Gluconate/ Multivitamins/ Chromium/Copper/ Manganese/Seleni/ Zn/Insulin Human Regular/ Total Parenteral Nutrition/Amino Acids/Dextrose/ Fat Emulsion Intravenous ( Calcium Gluconate/ Infuvite Adult/ Multitrace-5 Conc/ Novolin R Vi... 1,512 ml @ 63 mls/hr TPN CONT IV Last administered on 07/18/16 22:03; Start 07/18/16 at 22:00; Stop 07/19/16 at 21:59; Status DC Atropine Sulfate 0.5 mg 0.5 mg STK-MED ONCE .ROUTE ; Start 07/18/16 at 09:43; Stop 07/18/16 at 09:44; Status DC Insulin Human Regular/Sodium Chloride (Novolin R Vial/ Iv Normal Saline 150ml) 151.5 ml @ 0 mls/hr CONT PRN IV SEE I/O RECORD Last administered on 07/18/16 13:54; Start 07/18/16 at 11:45; Stop 07/19/16 at 10:27; Status DC Dextrose 12.5 gm 12.5 gm PRN Q15MIN PRN IV LOW BLOOD SUGAR; Start 07/18/16 at 11:45; Stop 07/19/16 at 10:53; Status DC Potassium Chloride (KCl Premix 20meq) 50 ml @ 25 mls/hr Q2H IV Last administered on 07/19/16 11:09; Start 07/19/16 at 09:30; Stop 07/19/16 at 13:29 ; Status DC Propofol (Diprivan) 1,000 mg STK-MED ONCE IV ; Start 07/17/16 at 16:36; Stop at 08:22; Status DC Atropine Sulfate 1 mg STK-MED ONCE .ROUTE ; Start 07/18/16 at 09:43; Stop at 08:53; Status DC Hydrocortisone Sodium Succinate (Solu-Cortef) 50 mg Q8HRS IV Last administered on 07/24/16 05:27; Start 07/19/16 at 14:00; Stop 07/24/16 at 14:38; Status DC Heparin Sodium (Porcine) 7400 unit 7,400 unit 1X ONCE IV Last administered on 07/19/16 10:03; Start 07/19/16 at 09:45; Stop 07/19/16 at 09:53; Status DC Heparin Sodium/ Dextrose 500 ml @ 0 mls/hr CONT PRN IV SEE I/O RECORD Last administered on 07/25/16 01:58; Start 07/19/16 at 09:45; Stop 07/25/16 at 13:12; Status DC Heparin Sodium (Porcine) 2,800 unit PRN Q6HRS PRN IV FOR UFH LEVEL LESS THAN 0.2; Start 07/19/16 at 09:45; Stop 07/23/16 at 08:12; Status DC Heparin Sodium (Porcine) 1,400 unit PRN Q6HRS PRN IV FOR UFH LEVEL 0.2 - 0.29 Last administered on 07/20/16 12:06; Start 07/19/16 at 09:45; Stop 07/23/16 at 08:12; Status DC Warfarin Sodium (Coumadin Per Pharmacy) 1 each PRN DAILY PRN MC PER PROTOCOL Last administered on 07/25/16 13:14; Start 07/19/16 at 09:45 Insulin Aspart (Novolog) 0-5 UNITS TIDWMEALS SQ Last administered on 07/19/16 12:02; Start 07/19/16 at 12:00; Stop 07/19/16 at 16:45; Status DC Dextrose 12.5 gm 12.5 gm PRN Q15MIN PRN IV SEE COMMENTS; Start 07/19/16 at 10: 30; Stop 07/24/16 at 13:40; Status DC Potassium Acetate/ Magnesium Sulfate/ Calcium Gluconate/ Multivitamins/ Chromium /Copper/ Manganese/Seleni/ Zn/Insulin Human Regular/Total Parenteral Nutrition/ Amino Acids/Dextrose/ Fat Emulsion Intravenous (Calcium Gluconate/ Infuvite Adult/ Multitrace-5 Conc/ Novolin R Vial/ Tpn - Tpn Flu... 1,200 ml @ 50 mls/ hr TPN CONT IV ; Start 07/19/16 at 22:00; Stop 07/19/16 at 22:00; Status DC Insulin Aspart (Novolog) 0-5 UNITS Q6HRS SQ Last administered on 07/21/16 12: 04; Start 07/19/16 at 18:00; Stop 07/21/16 at 12:34; Status DC Warfarin Sodium (Coumadin) 4 mg 1X WARF ONCE PO Last administered on 17:26; Start 07/19/16 at 17:02; Stop 07/19/16 at 17:03; Status DC Fentanyl Citrate (Fentanyl 2ml Vial) 50 mcg PRN Q2HR PRN IV PAIN Last administered on 07/22/16 03:15; Start 07/20/16 at 02:45; Stop 07/22/16 at 04:45 ; Status DC Warfarin Sodium (Coumadin) 5 mg 1X WARF ONCE PO Last administered on 17:09; Start 07/20/16 at 16:00; Stop 07/20/16 at 16:01; Status DC Midazolam HCl 1 mg 1 mg PRN Q1HR PRN IV sedation on vent; Start 07/20/16 at 11: 15; Stop 07/22/16 at 04:46; Status DC Sodium Chloride (Iv Sodium Chloride 0.9% 1000ml Bag) 1,000 ml @ 75 mls/hr [id number] IV Last administered on 07/23/16 05:31; Start 07/20/16 at 11:15; Stop 07/23/16 at 11:50; Status DC Midazolam HCl (Versed) 2 mg PRN Q1HR PRN IV sedation on vent; Start 07/20/16 at 11:15; Stop 07/22/16 at 04:47; Status DC Midazolam HCl (Versed) 3 mg PRN Q1HR PRN IV sedation on vent; Start 07/20/16 at 11:15; Stop 07/22/16 at 04:47; Status DC Midazolam HCl (Versed) 4 mg PRN Q1HR PRN IV sedation on vent Last administered on 07/22/16 04:32; Start 07/20/16 at 11:15; Stop 07/22/16 at 04:47; Status DC Insulin Detemir (Levemir) 15 units QHS SQ Last administered on 07/20/16 20:47 ; Start 07/20/16 at 21:00; Stop 07/21/16 at 12:34; Status DC Warfarin Sodium (Coumadin) 5 mg 1X WARF ONCE PO Last administered on 15:37; Start 07/21/16 at 16:00; Stop 07/21/16 at 16:01; Status DC Pantoprazole Sodium (Protonix Vial) 40 mg DAILYAC IVP Last administered on 07/22 07:41; Start 07/22/16 at 07:30; Stop 07/23/16 at 04:47; Status DC Insulin Detemir (Levemir) 25 units QHS SQ Last administered on 07/25/16 21:16; Start 07/21/16 at 21:00; Stop 07/26/16 at 08:09; Status DC Docusate Sodium (Colace) 100 mg BID PO Last administered on 07/25/16 21:11; Start 07/21/16 at 21:00 Insulin Aspart (Novolog) 0-9 UNITS Q6HRS SQ Last administered on 07/25/16 18:03 ; Start 07/21/16 at 13:00 Fentanyl Citrate (Fentanyl 2ml Vial) 100 mcg STK-MED ONCE .ROUTE ; Start at 22:18; Stop 07/21/16 at 22:19; Status DC Midazolam HCl (Versed) 2 mg STK-MED ONCE .ROUTE ; Start 07/21/16 at 23:45; Stop 07/21/16 at 23:46; Status DC Fentanyl Citrate (Fentanyl 2ml Vial) 100 mcg STK-MED ONCE .ROUTE ; Start at 00:36; Stop 07/22/16 at 00:37; Status DC Midazolam HCl (Versed) 2 mg STK-MED ONCE .ROUTE ; Start 07/22/16 at 00:57; Stop 07/22/16 at 00:58; Status DC Midazolam HCl (Versed) 2 mg STK-MED ONCE .ROUTE ; Start 07/22/16 at 02:06; Stop 07/22/16 at 02:07; Status DC Midazolam HCl (Versed) 2 mg STK-MED ONCE .ROUTE ; Start 07/22/16 at 03:13; Stop 07/22/16 at 03:14; Status DC Fentanyl Citrate (Fentanyl 2ml Vial) 100 mcg STK-MED ONCE .ROUTE ; Start at 03:14; Stop 07/22/16 at 03:15; Status DC Midazolam HCl (Versed) 2 mg STK-MED ONCE .ROUTE ; Start 07/22/16 at 04:29; Stop 07/22/16 at 04:30; Status DC Fentanyl Citrate (Fentanyl 2ml Vial) 50 mcg PRN Q2HR PRN IV SEVERE PAIN Last administered on 07/24/16 07:27; Start 07/22/16 at 04:45 Midazolam HCl (Versed) 1 mg PRN Q1HR PRN IV sedation on vent; Start 07/22/16 at 04:46 Midazolam HCl (Versed) 2 mg PRN Q1HR PRN IV sedation on vent Last administered on 07/22/16 07:42; Start 07/22/16 at 04:47 Midazolam HCl (Versed) 3 mg PRN Q1HR PRN IV sedation on vent; Start 07/22/16 at 04:47 Midazolam HCl (Versed) 4 mg PRN Q1HR PRN IV sedation on vent Last administered on 07/22/16 05:33; Start 07/22/16 at 04:47 Warfarin Sodium (Coumadin) 7.5 mg 1X WARF ONCE PO Last administered on 17:38; Start 07/22/16 at 16:00; Stop 07/22/16 at 16:01; Status DC Metoprolol Tartrate (Lopressor) 5 mg Q6HRS IVP Last administered on 07/26/16 06 :09; Start 07/22/16 at 12:30 Atorvastatin Calcium (Lipitor) 40 mg STK-MED ONCE .ROUTE ; Start 07/22/16 at 20: 37; Stop 07/22/16 at 20:38; Status DC Diphenhydramine HCl (Benadryl) 25 mg PRN Q6HRS PRN IVP ANAPHYLAXIS; Start 07/23 at 04:47 Pantoprazole Sodium (Protonix Vial) 40 mg DAILYAC IVP Last administered on 07:48; Start 07/23/16 at 04:47 Heparin Sodium (Porcine) 3,100 unit PRN Q6HRS PRN IV FOR UFH LEVEL LESS THAN 0.2; Start 07/23/16 at 08:15; Stop 07/24/16 at 13:37; Status DC Heparin Sodium (Porcine) 1,600 unit PRN Q6HRS PRN IV FOR UFH LEVEL 0.2 - 0.29 Last administered on 07/23/16 08:26; Start 07/23/16 at 08:15; Stop 07/24/16 at 13:39; Status DC Warfarin Sodium 7.5 mg 7.5 mg 1X WARF ONCE PO Last administered on 07/23/16 16:53; Start 07/23/16 at 16:00; Stop 07/23/16 at 16:01; Status DC Potassium Chloride 50 ml @ 50 mls/hr Q1H IV Last administered on 07/23/16 13: 39; Start 07/23/16 at 11:00; Stop 07/23/16 at 12:59; Status DC Amino Acids/ Electrolytes/ Dextrose (Clinimix E 4.25%-5% Solution) 1,000 ml @ 80 mls/hr [id number] IV Last administered on 07/25/16 03:30; Start 07/23/16 at 12: 00 Atorvastatin Calcium (Lipitor) 40 mg STK-MED ONCE .ROUTE ; Start 07/23/16 at 20: 33; Stop 07/23/16 at 20:34; Status DC Warfarin Sodium (Coumadin) 5 mg 1X WARF ONCE PO ; Start 07/24/16 at 16:00; Stop 07/24/16 at 16:01; Status DC Heparin Sodium (Porcine) (Heparin Sodium) 3,100 unit PRN Q6HRS PRN IV FOR UFH LEVEL LESS THAN 0.2; Start 07/24/16 at 13:37; Stop 07/25/16 at 13:12; Status DC Heparin Sodium (Porcine) (Heparin Sodium) 1,600 unit PRN Q6HRS PRN IV FOR UFH LEVEL 0.2 - 0.29; Start 07/24/16 at 13:39; Status Cancel Atorvastatin Calcium (Lipitor) 40 mg HS PO Last administered on 07/25/16 21:11 ; Start 07/24/16 at 21:00 Dextrose (Dextrose 50%-Water Syringe) 12.5 gm PRN Q15MIN PRN IV SEE COMMENTS Last administered on 07/26/16 07:42; Start 07/24/16 at 13:40 Hydralazine HCl (Apresoline) 20 mg PRN Q4HRS PRN IVP ELEVATED BP, SEE COMMENTS Last administered on 07/25/16 08:30; Start 07/24/16 at 14:45 Hydrocortisone Sodium Succinate (Solu-Cortef) 50 mg BID IV Last administered on 07/25/16 21:15; Start 07/24/16 at 21:00 Clonidine HCl 1 patch 1 patch WEEKLY TD Last administered on 07/24/16 19:05; Start 07/24/16 at 15:00 Nicardipine HCl/ Sodium Chloride (Cardene/Iv Sodium Chloride 0.9% 250ml) 270 ml @ 0 mls/hr CONT PRN IV SEE I/O RECORD Last administered on 07/25/16 22:46; Start 07/25/16 at 08:45; Stop 07/26/16 at 09:04; Status DC Warfarin Sodium (Coumadin) 5 mg 1X WARF ONCE PO Last administered on 07/25/16 15:09; Start 07/25/16 at 16:00; Stop 07/25/16 at 16:01; Status DC Lorazepam (Ativan) 1 mg PRN Q4HRS PRN IV ANXIETY / AGITATION Last administered on 07/26/16 05:29; Start 07/26/16 at 01:30 Active Scripts Active Levemir Flextouch (Insulin Detemir) 100 Unit/1 Ml Insuln.pen 20 Units SQ QHS 30 Days Novolog Flexpen (Insulin Aspart) 100 Unit/1 Ml Insuln.pen 10 Units SQ TIDAC 30 Days Reported Advair 100-50 Diskus (Fluticasone/Salmeterol) 1 Each Disk.w.dev 1 Puff IH BID Spiriva Respimat (Tiotropium Ackworth) 4 Gm Mist.inhal 2.5 Gm IH DAILY Symbicort 160-4.5 Mcg Inhaler (Budesonide/Formoterol Fumarate) 10.2 Gm Hfa.aer.ad 2 Puff IH BID Atorvastatin Calcium 20 Mg Tablet 20 Mg PO HS Lisinopril-Hctz 10-12.5 Mg Tab (Lisinopril/Hydrochlorothiazide) 1 Each Tablet 1 Tab PO DAILY Isosorbide Mononitrate Er (Isosorbide Mononitrate) 120 Mg Tab.er.24h 120 Mg PO DAILY Novolin N (Nph, Human Insulin Isophane) 100 Unit/1 Ml Vial 0 SQ Promethazine-Codeine Syrup (Promethazine Hcl/Codeine) 118 Ml Syrup 5 Ml PO Q4- 6HRS Diltiazem 24HR Cd (Diltiazem Hcl) 240 Mg Cap.er.24h 240 Mg PO DAILY NITROGLYCERIN SubLingual (Nitroglycerin) 0.4 Mg Tab.subl 0.4 Mg SL PRN Q5MIN PRN Atorvastatin Calcium 40 Mg Tablet 40 Mg PO HS Vitals/I & O Vital Sign - Last 24 Hours 07/25/16 07/25/16 07/25/16 07/25/16 10:00 11:00 11:58 12:00 Temp 98.6 98.6 Pulse 64 82 86 Resp 23 21 26 B/P 194/103 155/67 156/72 Pulse Ox 100 89 95 99 O2 Delivery Room Air 07/25/16 07/25/16 07/25/16 07/25/16 12:00 12:31 13:00 13:34 Pulse 87 74 Resp 32 25 B/P 154/68 135/67 Pulse Ox 92 92 O2 Delivery Nasal Cannula Room Air O2 Flow Rate 2.0 07/25/16 07/25/16 07/25/16 07/25/16 14:00 15:00 15:30 16:00 Temp 99.0 99.0 Pulse 76 84 Resp 27 20 B/P 140/64 147/64 Pulse Ox 91 92 93 O2 Delivery Room Air Nasal Cannula O2 Flow Rate 2.0 07/25/16 07/25/16 07/25/16 07/25/16 16:00 17:00 17:57 18:00 Pulse 80 86 71 Resp 27 15 26 B/P 140/66 152/76 160/74 Pulse Ox 94 93 92 O2 Delivery Room Air 07/25/16 07/25/16 07/25/16 07/25/16 18:00 18:27 19:00 20:00 Pulse 68 74 Resp 16 16 25 B/P 130/60 138/63 Pulse Ox 91 95 94 O2 Delivery Room Air Room Air Room Air 07/25/16 07/25/16 07/25/16 07/25/16 20:00 20:08 21:00 22:00 Temp 98.2 98.2 Pulse 78 78 64 Resp 20 B/P 160/70 134/62 127/55 Pulse Ox 97 94 95 97 O2 Delivery Room Air Nasal Cannula Nasal Cannula Nasal Cannula O2 Flow Rate 2.0 2.0 2.0 07/25/16 07/25/16 07/25/16 07/26/16 23:00 23:42 23:45 00:00 Pulse 65 76 Resp 22 B/P 132/56 156/75 Pulse Ox 98 98 O2 Delivery Nasal Cannula Nasal Cannula Nasal Cannula O2 Flow Rate 2.0 2.0 2.0 07/26/16 07/26/16 07/26/16 07/26/16 00:00 01:00 01:45 02:00 Temp 98.3 98.3 Pulse 64 68 64 Resp 20 25 B/P 134/68 140/68 139/77 129/66 Pulse Ox 97 97 94 O2 Delivery Nasal Cannula Nasal Cannula Nasal Cannula O2 Flow Rate 2.0 2.0 2.0 07/26/16 07/26/16 07/26/16 07/26/16 02:15 03:00 04:00 04:00 Temp 98.7 98.7 Pulse 64 70 Resp 22 B/P 142/67 128/69 155/75 Pulse Ox 95 O2 Delivery Nasal Cannula Nasal Cannula Nasal Cannula O2 Flow Rate 2.0 2.0 2.0 07/26/16 07/26/16 07/26/16 07/26/16 05:07 06:00 06:09 07:29 Temp 98.5 98.4 98.5 98.4 Pulse 64 64 65 Resp 22 B/P 158/87 144/82 144/82 Pulse Ox 99 97 99 O2 Delivery Nasal Cannula Nasal Cannula O2 Flow Rate 2.0 2.0 6.0 Intake and Output 07/25/16 07/25/16 07/26/16 15:00 23:00 07:00 Intake Total 2004 ml 1671 ml Output Total 1280 ml 1650 ml Balance 724 ml 21 ml BALA BRYANT MD Jul 26, 2016 09:10
--- NOTE | 2016-07-26 09:28 | PDOC ---
PULMONARY PROGRESS NOTES Subjective EXTUBATEd 07/22 NO INCREASE SOA WANTS TO DRINK Vitals Vital Signs Date Time Temp Pulse Resp B/P Pulse Ox O2 Delivery O2 Flow Rate FiO2 07/26/16 07:29 99 Nasal Cannula 6.0 07/26/16 06:09 65 144/82 07/26/16 06:00 98.4 22 98.4 General: Alert HEENT: Other (nc at orally intubated, nose clear, ) Lungs: Other (decreased breath sounds bilaterally. ) Cardiovascular: S1, S2 Abdomen: Soft, Non-tender, Other (no groin tenderness) Neuro Exam: Alert Extremities: Other (trace edema) Skin: Warm Labs Laboratory Tests Test 07/24/16 13:08 07/24/16 19:02 07/24/16 21:19 07/24/16 23:42 Glucose (Fingerstick) 184mg/dL (70-99) 171mg/dL (70-99) 158mg/dL (70-99) 164mg/dL (70-99) Test 07/25/16 05:30 07/25/16 05:32 07/25/16 11:44 07/25/16 12:27 White Blood Count 18.7x10^3/uL (4.0-11.0) Red Blood Count 3.62x10^6/uL (4.30-5.70) Hemoglobin 10.2g/dL (13.0-17.5) Hematocrit 31.5% (39.0-53.0) Mean Corpuscular Volume 87fL (79-100) Mean Corpuscular Hemoglobin 28pg (25-35) Mean Corpuscular Hemoglobin Concent 32g/dL (31-37) Red Cell Distribution Width 15.2% (11.5-14.5) Platelet Count 220x10^3/uL (140-400) Neutrophils (%) (Auto) 84% (31-73) Lymphocytes (%) (Auto) 7% (24-48) Monocytes (%) (Auto) 8% (0-9) Eosinophils (%) (Auto) 0% (0-3) Basophils (%) (Auto) 1% (0-3) Neutrophils # (Auto) 15.7x10^3uL (1.8-7.7) Lymphocytes # (Auto) 1.3x10^3/uL (1.0-4.8) Monocytes # (Auto) 1.6x10^3/uL (0.0-1.1) Eosinophils # (Auto) 0.0x10^3/uL (0.0-0.7) Basophils # (Auto) 0.1x10^3/uL (0.0-0.2) Sodium Level 153mmol/L (136-145) Potassium Level 3.8mmol/L (3.5-5.1) Chloride Level 115mmol/L (98-107) Carbon Dioxide Level 28mmol/L (21-32) Anion Gap 10 (6-14) Blood Urea Nitrogen 34mg/dL (8-26) Creatinine 0.9mg/dL (0.7-1.3) Estimated GFR (Cockcroft-Gault) 100.1 Glucose Level 183mg/dL (70-99) Calcium Level 8.5mg/dL (8.5-10.1) Glucose (Fingerstick) 168mg/dL (70-99) 192mg/dL (70-99) Prothrombin Time 24.2SEC (11.7-14.0) Prothromb Time International Ratio 2.3 (0.8-1.1) Heparin Anti-Xa Act, Unfractionated 0.37IU/mL (0.30-0.70) Test 07/25/16 18:02 07/25/16 21:10 07/25/16 23:37 07/25/16 23:51 Glucose (Fingerstick) 286mg/dL (70-99) 118mg/dL (70-99) 50mg/dL (70-99) 130mg/dL (70-99) Test 07/26/16 04:30 07/26/16 06:16 07/26/16 06:42 07/26/16 07:38 White Blood Count 18.4x10^3/uL (4.0-11.0) Red Blood Count 3.11x10^6/uL (4.30-5.70) Hemoglobin 8.7g/dL (13.0-17.5) Hematocrit 27.5% (39.0-53.0) Mean Corpuscular Volume 88fL (79-100) Mean Corpuscular Hemoglobin 28pg (25-35) Mean Corpuscular Hemoglobin Concent 32g/dL (31-37) Red Cell Distribution Width 15.5% (11.5-14.5) Platelet Count 173x10^3/uL (140-400) Neutrophils (%) (Auto) 88% (31-73) Lymphocytes (%) (Auto) 5% (24-48) Monocytes (%) (Auto) 6% (0-9) Eosinophils (%) (Auto) 0% (0-3) Basophils (%) (Auto) 0% (0-3) Neutrophils # (Auto) 16.2x10^3uL (1.8-7.7) Lymphocytes # (Auto) 1.0x10^3/uL (1.0-4.8) Monocytes # (Auto) 1.1x10^3/uL (0.0-1.1) Eosinophils # (Auto) 0.0x10^3/uL (0.0-0.7) Basophils # (Auto) 0.1x10^3/uL (0.0-0.2) Sodium Level 148mmol/L (136-145) Potassium Level 3.2mmol/L (3.5-5.1) Chloride Level 115mmol/L (98-107) Carbon Dioxide Level 28mmol/L (21-32) Anion Gap 5 (6-14) Blood Urea Nitrogen 30mg/dL (8-26) Creatinine 0.8mg/dL (0.7-1.3) Estimated GFR (Cockcroft-Gault) 114.7 Glucose Level 60mg/dL (70-99) Calcium Level 7.6mg/dL (8.5-10.1) Glucose (Fingerstick) 50mg/dL (70-99) 75mg/dL (70-99) 51mg/dL (70-99) Test 07/26/16 07:49 07/26/16 08:15 Glucose (Fingerstick) 98mg/dL (70-99) O2 Saturation 97% (92-99) Arterial Blood pH 7.46 (7.35-7.45) Arterial Blood pCO2 at Patient Temp 40mmHg (35-46) Arterial Blood pO2 at Patient Temp 99mmHg (65-108) Arterial Blood HCO3 28mmol/L (21-28) Arterial Blood Base Excess 4mmol/L (-3-3) FiO2 36% Laboratory Tests Test 07/25/16 11:44 07/25/16 12:27 07/25/16 18:02 07/25/16 21:10 Prothrombin Time 24.2SEC (11.7-14.0) Prothromb Time International Ratio 2.3 (0.8-1.1) Heparin Anti-Xa Act, Unfractionated 0.37IU/mL (0.30-0.70) Glucose (Fingerstick) 192mg/dL (70-99) 286mg/dL (70-99) 118mg/dL (70-99) Test 07/25/16 23:37 07/25/16 23:51 07/26/16 04:30 07/26/16 06:16 Glucose (Fingerstick) 50mg/dL (70-99) 130mg/dL (70-99) 50mg/dL (70-99) White Blood Count 18.4x10^3/uL (4.0-11.0) Red Blood Count 3.11x10^6/uL (4.30-5.70) Hemoglobin 8.7g/dL (13.0-17.5) Hematocrit 27.5% (39.0-53.0) Mean Corpuscular Volume 88fL (79-100) Mean Corpuscular Hemoglobin 28pg (25-35) Mean Corpuscular Hemoglobin Concent 32g/dL (31-37) Red Cell Distribution Width 15.5% (11.5-14.5) Platelet Count 173x10^3/uL (140-400) Neutrophils (%) (Auto) 88% (31-73) Lymphocytes (%) (Auto) 5% (24-48) Monocytes (%) (Auto) 6% (0-9) Eosinophils (%) (Auto) 0% (0-3) Basophils (%) (Auto) 0% (0-3) Neutrophils # (Auto) 16.2x10^3uL (1.8-7.7) Lymphocytes # (Auto) 1.0x10^3/uL (1.0-4.8) Monocytes # (Auto) 1.1x10^3/uL (0.0-1.1) Eosinophils # (Auto) 0.0x10^3/uL (0.0-0.7) Basophils # (Auto) 0.1x10^3/uL (0.0-0.2) Sodium Level 148mmol/L (136-145) Potassium Level 3.2mmol/L (3.5-5.1) Chloride Level 115mmol/L (98-107) Carbon Dioxide Level 28mmol/L (21-32) Anion Gap 5 (6-14) Blood Urea Nitrogen 30mg/dL (8-26) Creatinine 0.8mg/dL (0.7-1.3) Estimated GFR (Cockcroft-Gault) 114.7 Glucose Level 60mg/dL (70-99) Calcium Level 7.6mg/dL (8.5-10.1) Test 07/26/16 06:42 07/26/16 07:38 07/26/16 07:49 07/26/16 08:15 Glucose (Fingerstick) 75mg/dL (70-99) 51mg/dL (70-99) 98mg/dL (70-99) O2 Saturation 97% (92-99) Arterial Blood pH 7.46 (7.35-7.45) Arterial Blood pCO2 at Patient Temp 40mmHg (35-46) Arterial Blood pO2 at Patient Temp 99mmHg (65-108) Arterial Blood HCO3 28mmol/L (21-28) Arterial Blood Base Excess 4mmol/L (-3-3) FiO2 36% Medications Active Scripts Medications Dose Route/Sig Days Date Category Advair 100-50 Diskus (Fluticasone/Salmeterol) 1 Each Disk.w.dev 1 Puff IH BID 06/21/16 Reported Spiriva Respimat (Tiotropium [place]) 4 Gm Mist.inhal 2.5 Gm IH DAILY 06/21/16 Reported Symbicort 160-4.5 Mcg Inhaler (Budesonide/Formoterol Fumarate) 10.2 Gm Hfa.aer.ad 2 Puff IH BID 06/21/16 Reported Atorvastatin Calcium 20 Mg Tablet 20 Mg PO HS 06/21/16 Reported Lisinopril-Hctz 10-12.5 Mg Tab (Lisinopril/Hydrochlorothiazide) 1 Each Tablet 1 Tab PO DAILY 06/21/16 Reported Isosorbide Mononitrate Er (Isosorbide Mononitrate) 120 Mg Tab.er.24h 120 Mg PO DAILY 2/27/17 Reported Levemir Flextouch (Insulin Detemir) 100 Unit/1 Ml Insuln.pen 20 Units SQ QHS 30 11/24/15 Rx Novolog Flexpen (Insulin Aspart) 100 Unit/1 Ml Insuln.pen 10 Units SQ TIDAC 30 11/24/15 Rx Novolin N (Nph, Human Insulin Isophane) 100 Unit/1 Ml Vial 0 SQ 11/18/15 Reported Promethazine-Codeine Syrup (Promethazine Hcl/Codeine) 118 Ml Syrup 5 Ml PO Q4-6HRS 11/18/15 Reported Diltiazem 24HR Cd (Diltiazem Hcl) 240 Mg Cap.er.24h 240 Mg PO DAILY 11/18/15 Reported NITROGLYCERIN SubLingual (Nitroglycerin) 0.4 Mg Tab.subl 0.4 Mg SL PRN Q5MIN PRN 11/18/15 Reported Atorvastatin Calcium 40 Mg Tablet 40 Mg PO HS 11/18/[address] reviewed, 1. Widespread multifocal bilateral segmental pulmonary embolism, with nonocclusive lobar embolism involving the right lower and middle lobes. 2. Diffuse tree-in-bud opacification suggestive of acute bronchiolitis. Findings are less confluence than on the prior examination, but now involve the lower lobes. 3. Right heart enlargement with straightening of the interventricular septum possibly due to pulmonary hypertension. Correlate clinically and consider echocardiography if warranted. 4. Short segment high-grade stricture and/or focal obliteration of the right upper lobe bronchus. No adjacent mass or evidence of extrinsic compression. This is stable. CXR REVIEWED Impression . 1. Acute respiratory failure secondary to angioedema, self extubated 07/14, reintubated 07/15, s/p cardiopulmonary arrest, Acute extensive PE, DVT, s/p TPA 2. Acute extensive PE with shock, DVT, s/p TPA, off pressors 2. Lisinopril induced angioedema. resolved 3. Chronic obstructive pulmonary disease. 4. Hypertension. 5. Coronary artery disease. s/p emergent cath.no sig disease 6. BASIM, improving 7. anemia,improved, off AC Plan . NEEDS REHAB SPEECH EVALUATION D/W RN AND RT WILL CONTINUE THE SAME TUBE FEEDING FOR NOW DYSPHAGIA REPEAT CXR TAPER STEROIDS ANTICOAGULATION DOUGIE GARCIA MD Jul 26, 2016 09:28
[2016-07-26] MEDS ORDERED: CLONIDINE TTS-2 PATCH TD SCH (10:00)
[2016-07-26] MEDS: hydrALAZINE 20 MG/ML VIAL. IVP PRN ×2 (10:33→20:52)
[2016-07-26] MEDS: POTASSIUM CHLORIDE 20MEQ 50 ML IV SCH ×2 (10:35→11:55)
[2016-07-26] MEDS: HYDROCORTISONE SOD SUCC/PF 100 MG/2 ML VIAL. IV SCH ×2 (10:35→21:18)
--- NOTE | 2016-07-26 11:54 | PDOC ---
G I PROGRESS NOTE Reason for Follow-up Dysphagia/failure to thrive Subjective Extubated/moans to questions Physical Exam Lungs decreased BS CV S1 S2 ABD soft, mildly distended, +BS Review of Relevant I have reviewed the following items valerie (where applicable) has been applied. Labs Laboratory Tests Test 07/24/16 13:08 07/24/16 19:02 07/24/16 21:19 07/24/16 23:42 Glucose (Fingerstick) 184mg/dL (70-99) 171mg/dL (70-99) 158mg/dL (70-99) 164mg/dL (70-99) Test 07/25/16 05:30 07/25/16 05:32 07/25/16 11:44 07/25/16 12:27 White Blood Count 18.7x10^3/uL (4.0-11.0) Red Blood Count 3.62x10^6/uL (4.30-5.70) Hemoglobin 10.2g/dL (13.0-17.5) Hematocrit 31.5% (39.0-53.0) Mean Corpuscular Volume 87fL (79-100) Mean Corpuscular Hemoglobin 28pg (25-35) Mean Corpuscular Hemoglobin Concent 32g/dL (31-37) Red Cell Distribution Width 15.2% (11.5-14.5) Platelet Count 220x10^3/uL (140-400) Neutrophils (%) (Auto) 84% (31-73) Lymphocytes (%) (Auto) 7% (24-48) Monocytes (%) (Auto) 8% (0-9) Eosinophils (%) (Auto) 0% (0-3) Basophils (%) (Auto) 1% (0-3) Neutrophils # (Auto) 15.7x10^3uL (1.8-7.7) Lymphocytes # (Auto) 1.3x10^3/uL (1.0-4.8) Monocytes # (Auto) 1.6x10^3/uL (0.0-1.1) Eosinophils # (Auto) 0.0x10^3/uL (0.0-0.7) Basophils # (Auto) 0.1x10^3/uL (0.0-0.2) Sodium Level 153mmol/L (136-145) Potassium Level 3.8mmol/L (3.5-5.1) Chloride Level 115mmol/L (98-107) Carbon Dioxide Level 28mmol/L (21-32) Anion Gap 10 (6-14) Blood Urea Nitrogen 34mg/dL (8-26) Creatinine 0.9mg/dL (0.7-1.3) Estimated GFR (Cockcroft-Gault) 100.1 Glucose Level 183mg/dL (70-99) Calcium Level 8.5mg/dL (8.5-10.1) Glucose (Fingerstick) 168mg/dL (70-99) 192mg/dL (70-99) Prothrombin Time 24.2SEC (11.7-14.0) Prothromb Time International Ratio 2.3 (0.8-1.1) Heparin Anti-Xa Act, Unfractionated 0.37IU/mL (0.30-0.70) Test 07/25/16 18:02 07/25/16 21:10 07/25/16 23:37 07/25/16 23:51 Glucose (Fingerstick) 286mg/dL (70-99) 118mg/dL (70-99) 50mg/dL (70-99) 130mg/dL (70-99) Test 07/26/16 04:30 07/26/16 06:16 07/26/16 06:42 07/26/16 07:38 White Blood Count 18.4x10^3/uL (4.0-11.0) Red Blood Count 3.11x10^6/uL (4.30-5.70) Hemoglobin 8.7g/dL (13.0-17.5) Hematocrit 27.5% (39.0-53.0) Mean Corpuscular Volume 88fL (79-100) Mean Corpuscular Hemoglobin 28pg (25-35) Mean Corpuscular Hemoglobin Concent 32g/dL (31-37) Red Cell Distribution Width 15.5% (11.5-14.5) Platelet Count 173x10^3/uL (140-400) Neutrophils (%) (Auto) 88% (31-73) Lymphocytes (%) (Auto) 5% (24-48) Monocytes (%) (Auto) 6% (0-9) Eosinophils (%) (Auto) 0% (0-3) Basophils (%) (Auto) 0% (0-3) Neutrophils # (Auto) 16.2x10^3uL (1.8-7.7) Lymphocytes # (Auto) 1.0x10^3/uL (1.0-4.8) Monocytes # (Auto) 1.1x10^3/uL (0.0-1.1) Eosinophils # (Auto) 0.0x10^3/uL (0.0-0.7) Basophils # (Auto) 0.1x10^3/uL (0.0-0.2) Sodium Level 148mmol/L (136-145) Potassium Level 3.2mmol/L (3.5-5.1) Chloride Level 115mmol/L (98-107) Carbon Dioxide Level 28mmol/L (21-32) Anion Gap 5 (6-14) Blood Urea Nitrogen 30mg/dL (8-26) Creatinine 0.8mg/dL (0.7-1.3) Estimated GFR (Cockcroft-Gault) 114.7 Glucose Level 60mg/dL (70-99) Calcium Level 7.6mg/dL (8.5-10.1) Glucose (Fingerstick) 50mg/dL (70-99) 75mg/dL (70-99) 51mg/dL (70-99) Test 07/26/16 07:49 07/26/16 08:15 Glucose (Fingerstick) 98mg/dL (70-99) O2 Saturation 97% (92-99) Arterial Blood pH 7.46 (7.35-7.45) Arterial Blood pCO2 at Patient Temp 40mmHg (35-46) Arterial Blood pO2 at Patient Temp 99mmHg (65-108) Arterial Blood HCO3 28mmol/L (21-28) Arterial Blood Base Excess 4mmol/L (-3-3) FiO2 36% Laboratory Tests Test 07/25/16 12:27 07/25/16 18:02 07/25/16 21:10 07/25/16 23:37 Glucose (Fingerstick) 192mg/dL (70-99) 286mg/dL (70-99) 118mg/dL (70-99) 50mg/dL (70-99) Test 07/25/16 23:51 07/26/16 04:30 07/26/16 06:16 07/26/16 06:42 Glucose (Fingerstick) 130mg/dL (70-99) 50mg/dL (70-99) 75mg/dL (70-99) White Blood Count 18.4x10^3/uL (4.0-11.0) Red Blood Count 3.11x10^6/uL (4.30-5.70) Hemoglobin 8.7g/dL (13.0-17.5) Hematocrit 27.5% (39.0-53.0) Mean Corpuscular Volume 88fL (79-100) Mean Corpuscular Hemoglobin 28pg (25-35) Mean Corpuscular Hemoglobin Concent 32g/dL (31-37) Red Cell Distribution Width 15.5% (11.5-14.5) Platelet Count 173x10^3/uL (140-400) Neutrophils (%) (Auto) 88% (31-73) Lymphocytes (%) (Auto) 5% (24-48) Monocytes (%) (Auto) 6% (0-9) Eosinophils (%) (Auto) 0% (0-3) Basophils (%) (Auto) 0% (0-3) Neutrophils # (Auto) 16.2x10^3uL (1.8-7.7) Lymphocytes # (Auto) 1.0x10^3/uL (1.0-4.8) Monocytes # (Auto) 1.1x10^3/uL (0.0-1.1) Eosinophils # (Auto) 0.0x10^3/uL (0.0-0.7) Basophils # (Auto) 0.1x10^3/uL (0.0-0.2) Sodium Level 148mmol/L (136-145) Potassium Level 3.2mmol/L (3.5-5.1) Chloride Level 115mmol/L (98-107) Carbon Dioxide Level 28mmol/L (21-32) Anion Gap 5 (6-14) Blood Urea Nitrogen 30mg/dL (8-26) Creatinine 0.8mg/dL (0.7-1.3) Estimated GFR (Cockcroft-Gault) 114.7 Glucose Level 60mg/dL (70-99) Calcium Level 7.6mg/dL (8.5-10.1) Test 07/26/16 07:38 07/26/16 07:49 07/26/16 08:15 Glucose (Fingerstick) 51mg/dL (70-99) 98mg/dL (70-99) O2 Saturation 97% (92-99) Arterial Blood pH 7.46 (7.35-7.45) Arterial Blood pCO2 at Patient Temp 40mmHg (35-46) Arterial Blood pO2 at Patient Temp 99mmHg (65-108) Arterial Blood HCO3 28mmol/L (21-28) Arterial Blood Base Excess 4mmol/L (-3-3) FiO2 36% Microbiology 07/15/16 Blood Culture - Final, Complete NO GROWTH AFTER 5 DAYS 07/14/16 Urine Culture - Final, Complete 07/14/16 Urine Culture Result 1 (MARÍA) - Final, Complete 07/14/16 Urine Culture Result 2 (MARÍA) - Final, Complete 07/14/16 Antimicrobic Susceptibility - Final, Complete Medications Current Medications Albuterol/ Ipratropium (Duoneb) 6 ml 1X ONCE NEB Last administered on 12:34; Start 07/12/16 at 12:30; Stop 07/12/16 at 12:31; Status DC Prednisone 60 mg 60 mg 1X ONCE PO Last administered on 07/12/16 12:40; Start 07/12/16 at 12:30; Stop 07/12/16 at 12:31; Status DC Sodium Chloride (Iv Sodium Chloride 0.9% 1000ml Bag) 1,000 ml @ 1,000 mls/hr 1X ONCE IV Last administered on 07/12/16 13:12; Start 07/12/16 at 13:15; Stop 07/12/16 at 14:14; Status DC Insulin Human Regular (Novolin R Vial) 10 unit 1X ONCE IV Last administered on 07/12/16 13:16; Start 07/12/16 at 13:15; Stop 07/12/16 at 13:16; Status DC Diphenhydramine HCl (Benadryl) 50 mg STK-MED ONCE .ROUTE ; Start 07/12/16 at 14: 55; Stop 07/12/16 at 14:56; Status DC Diphenhydramine HCl (Benadryl) 50 mg 1X ONCE IVP Last administered on 15:15; Start 07/12/16 at 15:15; Stop 07/12/16 at 15:16; Status DC Atorvastatin Calcium (Lipitor) 40 mg HS PO Last administered on 07/23/16 20:45 ; Start 07/12/16 at 21:00; Stop 07/24/16 at 13:39; Status DC Diltiazem HCl (Cardizem 24hr Cd) 240 mg DAILY PO ; Start 07/12/16 at 16:30; Stop 07/13/16 at 17:18; Status DC Insulin Aspart (Novolog) 10 units TIDAC SQ ; Start 07/12/16 at 16:30; Stop 07/12 at 16:30; Status DC Insulin Detemir (Levemir) 20 units QHS SQ ; Start 07/12/16 at 21:00; Stop at 21:00; Status DC Promethazine HCl/ Codeine (Phenergan With Codeine) 5 ml QID PO ; Start 07/12/16 at 17:00; Stop 07/13/16 at 17:18; Status DC Non-Formulary Medication 2 puff BID IH ; Start 07/12/16 at 21:00; Status UNV Non-Formulary Medication 2.5 gm DAILY IH ; Start 07/13/16 at 09:00; Status UNV Budesonide (Pulmicort) 0.5 mg RTBID NEB Last administered on 07/13/16 07:30; Start 07/12/16 at 20:00; Stop 07/13/16 at 11:27; Status DC Albuterol/ Ipratropium (Duoneb) 3 ml RTQID NEB Last administered on 07/16/16 07:47; Start 07/12/16 at 20:00; Stop 07/16/16 at 08:38; Status DC Methylprednisolone Sodium Succinate (Solu-Medrol 40mg Vial) 60 mg 1X ONCE IV Last administered on 07/12/16 16:06; Start 07/12/16 at 16:30; Stop 07/12/16 at 16:31; Status DC Methylprednisolone Sodium Succinate (Solu-Medrol 40mg Vial) 60 mg DAILY IV ; Start 07/13/16 at 09:00; Stop 07/13/16 at 09:00; Status DC Pantoprazole Sodium (Protonix Vial) 40 mg DAILY IVP Last administered on 08:43; Start 07/13/16 at 09:00; Stop 07/17/16 at 20:37; Status DC Diphenhydramine HCl 25 mg 25 mg PRN Q6HRS PRN IVP ANAPHYLAXIS Last administered on 07/12/16 16:06; Start 07/12/16 at 16:00; Stop 07/23/16 at 04:47 ; Status DC Sodium Chloride (Iv Sodium Chloride 0.9% 1000ml Bag) 1,000 ml @ 150 mls/hr Q6H40M IV Last administered on 07/14/16 01:21; Start 07/12/16 at 16:30; Stop 07/14/16 at 09:31; Status DC Albuterol/ Ipratropium (Duoneb) 3 ml QID NEB ; Start 07/12/16 at 17:00; Status UNV Albuterol Sulfate (Ventolin Neb Soln) 2.5 mg PRN Q2HR PRN NEB SHORTNESS OF BREATH Last administered on 07/25/16 23:44; Start 07/12/16 at 16:00 Insulin Aspart (Novolog) 0-9 UNITS QID SQ Last administered on 07/14/16 08:37 ; Start 07/12/16 at 17:00; Stop 07/14/16 at 09:31; Status DC Dextrose 12.5 gm PRN Q15MIN PRN IV SEE COMMENTS; Start 07/12/16 at 16:00; Stop 07/15/16 at 12:46; Status DC Insulin Detemir (Levemir) 15 units QHS SQ ; Start 07/12/16 at 21:00; Stop at 21:00; Status DC Enoxaparin Sodium (Lovenox 40mg Syringe) 40 mg DAILY SQ Last administered on 08:54; Start 07/12/16 at 16:30; Stop 07/15/16 at 14:28; Status DC Insulin Detemir (Levemir) 20 units QHS SQ Last administered on 07/12/16 23:49 ; Start 07/12/16 at 21:00; Stop 07/13/16 at 15:18; Status DC Succinylcholine Chloride 200 mg 200 mg STK-MED ONCE .ROUTE ; Start 07/12/16 at 17:46; Stop 07/12/16 at 17:47; Status DC Propofol (Diprivan) 100 ml @ As Directed STK-MED ONCE IV ; Start 07/12/16 at 17 :46; Stop 07/12/16 at 17:47; Status DC Lidocaine HCl 100 mg STK-MED ONCE .ROUTE ; Start 07/12/16 at 18:02; Stop at 18:03; Status DC Ketamine HCl 500 mg 1X ONCE IV ; Start 07/12/16 at 18:30; Stop 07/12/16 at 18: 31; Status DC Midazolam HCl (Versed) 5 mg STK-MED ONCE .ROUTE ; Start 07/12/16 at 18:14; Stop 07/12/16 at 18:15; Status DC Midazolam HCl (Versed) 2 mg 1X ONCE IV ; Start 07/12/16 at 18:30; Stop at 18:31; Status DC Glycopyrrolate (Robinul) 1 mg 1X ONCE IV ; Start 07/12/16 at 18:30; Stop at 18:31; Status DC Oxymetazoline HCl (Afrin) 2 spray 1X ONCE NS ; Start 07/12/16 at 18:30; Stop at 18:31; Status DC Lidocaine HCl 30 ml STK-MED ONCE .ROUTE ; Start 07/12/16 at 18:19; Stop at 18:20; Status DC Vecuronium [place] 6 mg 6 mg PRN Q4HRS PRN IV ANXIETY / AGITATION Last administered on 07/12/16 19:55; Start 07/12/16 at 19:00; Stop 07/15/16 at 07:58 ; Status DC Propofol (Diprivan) 100 ml @ 0 mls/hr CONT PRN IV SEE I/O RECORD Last administered on 07/14/16 13:42; Start 07/12/16 at 19:00; Stop 07/15/16 at 07:58 ; Status DC Insulin Aspart 10 units 10 units 1X ONCE SQ Last administered on 07/12/16 19: 41; Start 07/12/16 at 19:45; Stop 07/12/16 at 19:46; Status DC Vecuronium [place] 100 mg/ Dextrose 100 ml @ 0 mls/hr CONT PRN IV SEE I/O RECORD Last administered on 07/13/16 20:48; Start 07/12/16 at 21:00; Stop 07/14 at 09:31; Status DC Fentanyl Citrate (Fentanyl 600 Mcg/30 ml BINDER CUTTER) 30 ml @ 0 mls/hr CONT PRN IV PROTOCOL Last administered on 07/14/16 09:33; Start 07/12/16 at 22:00; Stop at 07:58; Status DC Chlorhexidine Gluconate (Peridex) 15 ml BID MM Last administered on 07/23/16 08:22; Start 07/13/16 at 09:00; Stop 07/23/16 at 09:42; Status DC Methylprednisolone Sodium Succinate (Solu-Medrol 125mg Vial) 125 mg BID IV Last administered on 07/14/16 21:02; Start 07/13/16 at 09:00; Stop 07/15/16 at 07:58; Status DC Rocuronium [place] (Zemuron) 50 mg STK-MED ONCE .ROUTE ; Start 07/12/16 at 15:00 ; Stop 07/13/16 at 08:54; Status DC Glycopyrrolate (Robinul) 1 mg STK-MED ONCE .ROUTE ; Start 07/12/16 at 15:00; Stop 07/13/16 at 08:54; Status DC Lidocaine HCl 30 ml STK-MED ONCE .ROUTE ; Start 07/12/16 at 18:00; Stop at 09:05; Status DC Midazolam HCl (Versed) 5 mg STK-MED ONCE .ROUTE ; Start 07/12/16 at 18:00; Stop 07/13/16 at 09:05; Status DC Propofol (Diprivan) 1,000 mg STK-MED ONCE IV ; Start 07/12/16 at 18:00; Stop at 09:05; Status DC Succinylcholine Chloride (Anectine) 200 mg STK-MED ONCE .ROUTE ; Start 07/12/16 at 18:00; Stop 07/13/16 at 09:05; Status DC Multi-Ingred Cream/Lotion/Oil/ Oint (Artificial Tears Eye Oint) 1 margie PRN Q1HR PRN OU DRY EYE Last administered on 07/13/16 15:45; Start 07/13/16 at 11:00 Ketamine HCl 500 mg STK-MED ONCE .ROUTE ; Start 07/12/16 at 18:30; Stop at 12:05; Status DC Insulin Aspart (Novolog) 10 units 1X STAT SQ Last administered on 07/13/16 12 :36; Start 07/13/16 at 12:17; Stop 07/13/16 at 12:20; Status DC Insulin Aspart (Novolog) 10 units 1X ONCE SQ Last administered on 07/13/16 14 :31; Start 07/13/16 at 14:30; Stop 07/13/16 at 14:31; Status DC Insulin Detemir (Levemir) 40 units QHS SQ Last administered on 07/13/16 20:50 ; Start 07/13/16 at 21:00; Stop 07/14/16 at 09:31; Status DC Benzocaine (Hurricaine One) 1 spray STK-MED ONCE .ROUTE ; Start 07/12/16 at 12: 00; Stop 07/13/16 at 16:00; Status DC Lidocaine HCl 5 margie 5 margie STK-MED ONCE TP ; Start 07/12/16 at 12:00; Stop at 16:00; Status DC Insulin Human Regular/Sodium Chloride (Novolin R Vial/ Iv Normal Saline 150ml) 151.5 ml @ 0 mls/hr CONT PRN IV SEE I/O RECORD Last administered on 07/14/16 10:01; Start 07/14/16 at 09:30; Stop 07/15/16 at 07:58; Status DC Info 1 each 1 each PRN DAILY PRN MC SEE COMMENTS Last administered on 08:27; Start 07/14/16 at 09:30; Stop 07/19/16 at 16:30; Status DC Magnesium Sulfate/ Dextrose 50 ml @ 25 mls/hr PRN DAILY PRN IV for Mag < 1.7 on am labs; Start 07/14/16 at 11:15; Stop 07/15/16 at 07:58; Status DC Sodium Chloride 500 ml @ 500 mls/hr QID PRN IV UO< 30cc/hr over previous 6hrs ; Start 07/14/16 at 11:15; Stop 07/14/16 at 11:26; Status DC Sodium Chloride 500 ml @ 500 mls/hr PRN QID PRN IV UO< 30cc/hr over previous 6hrs Last administered on 07/16/16 10:00; Start 07/14/16 at 11:26; Stop at 09:07; Status DC Ceftriaxone Sodium 1 gm/ Sodium Chloride 50 ml @ 100 mls/hr Q24H IV Last administered on 07/19/16 12:25; Start 07/14/16 at 12:00; Stop 07/20/16 at 12:29 ; Status DC Sodium Chloride/ Magnesium Sulfate/ Calcium Gluconate/ Multivitamins/ Chromium/ Copper/ Manganese/Seleni/ Zn/Total Parenteral Nutrition/Amino Acids/Dextrose ( Sodium Chloride/ Infuvite Adult/ Multitrace-5 Conc/ Tpn - Tpn Fluid/ Trophamine / Dextrose 70%-Water Iv Soln) 1,512 ml @ 63 mls/hr TPN CONT IV Last administered on 07/14/16 22:29; Start 07/14/16 at 22:00; Stop 07/15/16 at 21:59 ; Status DC Hydralazine HCl (Apresoline) 10 mg PRN Q4HRS PRN IVP ELEVATED BP, SEE COMMENTS Last administered on 07/24/16 13:01; Start 07/14/16 at 22:30; Stop 07/24/16 at 14 :38; Status DC Methylprednisolone Sodium Succinate (Solu-Medrol 125mg Vial) 125 mg DAILY IV Last administered on 07/15/16 08:55; Start 07/15/16 at 09:00; Stop 07/16/16 at 08:35; Status DC Insulin Aspart (Novolog) 0-9 UNITS TIDWMEALS SQ Last administered on 07/15/16 16:16; Start 07/15/16 at 08:00; Stop 07/16/16 at 07:16; Status DC Dextrose 12.5 gm PRN Q15MIN PRN IV SEE COMMENTS; Start 07/15/16 at 08:00; Stop 07/19/16 at 10:53; Status DC Insulin Detemir (Levemir) 20 units QHS SQ Last administered on 07/15/16 21:48 ; Start 07/15/16 at 21:00; Stop 07/16/16 at 07:16; Status DC Insulin Aspart (Novolog) 10 units TIDAC SQ ; Start 07/15/16 at 11:30; Stop 07/16 at 07:16; Status DC Sodium Polystyrene Sulfonate (Kayexalate) 30 gm 1X ONCE PO ; Start 07/15/16 at 08:00; Stop 07/15/16 at 08:08; Status DC Hydrochlorothiazide (Microzide) 12.5 mg DAILY PO ; Start 07/15/16 at 09:00; Stop 07/16/16 at 07:39; Status DC Isosorbide Mononitrate (Imdur) 120 mg DAILY PO ; Start 07/15/16 at 09:00; Stop 07/15/16 at 09:00; Status DC Diltiazem HCl (Cardizem 24hr Cd) 240 mg DAILY PO ; Start 07/15/16 at 09:00; Stop 07/16/16 at 07:39; Status DC Guaifenesin (Mucinex) 600 mg BID PO ; Start 07/15/16 at 09:00; Stop 07/16/16 at 07:39; Status DC Mupirocin (Bactroban) 1 margie BID NS Last administered on 07/25/16 22:46; Start 07/15/16 at 09:00 Isosorbide Mononitrate (Imdur) 120 mg DAILY PO ; Start 07/15/16 at 09:00; Stop 07/16/16 at 07:39; Status DC Sodium Bicarbonate 50 meq 1X ONCE IV Last administered on 07/15/16 15:22; Start 07/15/16 at 10:45; Stop 07/15/16 at 10:46; Status DC Sodium Bicarbonate 50 meq 50 meq STK-MED ONCE .ROUTE ; Start 07/15/16 at 10:34; Stop 07/15/16 at 10:35; Status DC Dopamine HCl/ Dextrose 250 ml @ As Directed STK-MED ONCE IV ; Start 07/15/16 at 10:37; Stop 07/15/16 at 10:38; Status DC Midazolam HCl (Versed) 5 mg STK-MED ONCE .ROUTE ; Start 07/15/16 at 10:41; Stop 07/15/16 at 10:42; Status DC Iohexol 100 ml 100 ml STK-MED ONCE .ROUTE ; Start 07/15/16 at 10:45; Stop at 10:46; Status DC Heparin Sodium/ Sodium Chloride 1,500 ml @ As Directed STK-MED ONCE .ROUTE ; Start 07/15/16 at 10:45; Stop 07/15/16 at 10:46; Status DC Lidocaine HCl 20 ml 20 ml STK-MED ONCE .ROUTE ; Start 07/15/16 at 10:45; Stop at 10:46; Status DC Dopamine HCl/ Dextrose 250 ml @ 16.255 mls/ hr CONT PRN IV SEE I/O RECORD Last administered on 07/16/16 23:10; Start 07/15/16 at 11:00; Stop 07/26/16 at 09:04; Status DC Sodium Chloride 1,000 ml @ 1,000 mls/hr 1X ONCE IV Last administered on 11:00; Start 07/15/16 at 11:00; Stop 07/15/16 at 11:59; Status DC Norepinephrine Bitartrate/Sodium Chloride (Levophed Vial/ Iv Sodium Chloride 0.9 % 250ml) 258 ml @ 0 mls/hr CONT PRN IV SEE I/O RECORD Last administered on 07/17 00:51; Start 07/15/16 at 11:00; Stop 07/26/16 at 09:04; Status DC Midazolam HCl (Versed) 5 mg STK-MED ONCE .ROUTE ; Start 07/15/16 at 10:54; Stop 07/15/16 at 10:55; Status DC Fentanyl Citrate (Fentanyl 2ml Vial) 100 mcg STK-MED ONCE .ROUTE ; Start at 11:02; Stop 07/15/16 at 11:03; Status DC Vecuronium [place] 10 mg 10 mg STK-MED ONCE IV ; Start 07/15/16 at 11:03; Stop 07/15/16 at 11:04; Status DC Midazolam HCl (Versed 100mg/ 100ml Premix) 100 ml @ As Directed STK-MED ONCE IV ; Start 07/15/16 at 11:03; Stop 07/15/16 at 11:04; Status DC Iohexol (Omnipaque 300 Mg/ml) 112 ml 1X ONCE IART Last administered on 11:56; Start 07/15/16 at 12:00; Stop 07/15/16 at 12:01; Status DC Lidocaine HCl 10 ml 1X ONCE IJ Last administered on 07/15/16 11:57; Start at 12:00; Stop 07/15/16 at 12:01; Status DC Heparin Sodium/ Sodium Chloride 1000 unit 1,000 unit 1X ONCE IART ; Start 07/15 at 12:00; Stop 07/15/16 at 12:01; Status DC Sodium Chloride/ Magnesium Sulfate/ Calcium Gluconate/ Multivitamins/ Chromium/ Copper/ Manganese/Seleni/ Zn/Total Parenteral Nutrition/Amino Acids/Dextrose ( Sodium Chloride/ Infuvite Adult/ Multitrace-5 Conc/ Tpn - Tpn Fluid/ Trophamine / Dextrose 70%-Water Iv Soln) 1,512 ml @ 63 mls/hr TPN CONT IV Last administered on 07/15/16 21:27; Start 07/15/16 at 22:00; Stop 07/16/16 at 21:59 ; Status DC Iohexol (Omnipaque 300 Mg/ml) 75 ml 1X ONCE IV Last administered on 07/15/16 13:43; Start 07/15/16 at 13:15; Stop 07/15/16 at 13:16; Status DC Info (Do NOT chart on this entry -- for MONITORING) 1 each PRN DAILY PRN MC SEE COMMENTS; Start 07/15/16 at 13:15; Stop 07/17/16 at 13:14; Status DC Heparin Sodium (Porcine) 7000 unit 7,000 unit 1X ONCE IV Last administered on 07/15/16 15:27; Start 07/15/16 at 14:45; Stop 07/15/16 at 14:46; Status DC Heparin Sodium/ Dextrose 500 ml @ 0 mls/hr CONT PRN IV SEE I/O RECORD Last administered on 07/17/16 18:41; Start 07/15/16 at 14:30; Stop 07/18/16 at 10:21 ; Status DC Heparin Sodium (Porcine) 2,600 unit PRN Q6HRS PRN IV FOR UFH LEVEL LESS THAN 0.2; Start 07/15/16 at 14:30; Stop 07/18/16 at 10:21; Status DC Heparin Sodium (Porcine) 1,300 unit PRN Q6HRS PRN IV FOR UFH LEVEL 0.2 - 0.29; Start 07/15/16 at 14:30; Stop 07/18/16 at 10:21; Status DC Warfarin Sodium (Coumadin Per Pharmacy) 1 each PRN DAILY PRN MC PER PROTOCOL; Start 07/15/16 at 14:30; Stop 07/15/16 at 14:30; Status DC Sodium Bicarbonate 50 meq 50 meq 1X ONCE IV Last administered on 07/15/16 16: 30; Start 07/15/16 at 16:30; Stop 07/15/16 at 16:34; Status DC Alteplase, Recombinant (Activase) 100 ml @ 50 mls/hr 1X ONCE IV Last administered on 07/15/16 17:30; Start 07/15/16 at 17:30; Stop 07/15/16 at 19:29 ; Status DC Fentanyl Citrate (Fentanyl 2ml Vial) 25 mcg PRN Q1HR PRN IV COMM; Start at 22:30; Stop 07/16/16 at 07:17; Status DC Fentanyl Citrate (Fentanyl 2ml Vial) 50 mcg PRN Q1HR PRN IV COMM Last administered on 07/16/16 05:30; Start 07/15/16 at 22:30; Stop 07/16/16 at 07:17 ; Status DC Scopolamine (Transderm-Scop) 1 patch Q3DAYS TD Last administered on 07/24/16 07 :59; Start 07/18/16 at 09:00 Scopolamine 1 patch 1 patch ONCE ONCE TD ; Start 07/15/16 at 23:30; Stop at 23:31; Status DC Sodium Chloride 1,000 ml @ 1,000 mls/hr 1X ONCE IV Last administered on 02:38; Start 07/16/16 at 01:00; Stop 07/16/16 at 01:59; Status DC Midazolam HCl 100 ml @ As Directed STK-MED ONCE IV ; Start 07/16/16 at 01:00; Stop 07/16/16 at 01:01; Status DC Midazolam HCl 100 ml @ 0 mls/hr CONT PRN IV SEE I/O RECORD Last administered on 07/19/16 07:52; Start 07/16/16 at 01:15; Stop 07/26/16 at 09:04; Status DC Vasopressin 40 unit/Dextrose 102 ml @ 6 mls/hr CONT PRN IV SEE I/O RECORD Last administered on 07/17/16 13:33; Start 07/16/16 at 05:00; Stop 07/24/16 at 14:38 ; Status DC Insulin Human Regular 150 unit/ Sodium Chloride 151.5 ml @ 0 mls/hr CONT PRN IV SEE I/O RECORD Last administered on 07/17/16 02:26; Start 07/16/16 at 05:00 ; Stop 07/17/16 at 10:10; Status DC Fentanyl Citrate (Fentanyl 600 Mcg/30 ml [employer]) 30 ml @ 0 mls/hr CONT PRN IV PROTOCOL Last administered on 07/25/16 17:57; Start 07/16/16 at 07:15; Stop 07/26 at 09:04; Status DC Vecuronium [place] (Norcuron Bolus) 10 mg STK-MED ONCE IV ; Start 07/15/16 at 11 :00; Stop 07/16/16 at 08:06; Status DC Fentanyl Citrate (Fentanyl 2ml Vial) 100 mcg STK-MED ONCE .ROUTE ; Start at 11:00; Stop 07/16/16 at 08:06; Status DC Midazolam HCl (Versed) 10 mg STK-MED ONCE .ROUTE ; Start 07/15/16 at 11:00; Stop 07/16/16 at 08:06; Status DC Dopamine HCl/ Dextrose 400 mg STK-MED ONCE IV ; Start 07/15/16 at 11:00; Stop at 08:06; Status DC Sodium Bicarbonate 50 meq STK-MED ONCE .ROUTE ; Start 07/15/16 at 11:00; Stop at 08:06; Status DC Hydrocortisone Sodium Succinate (Solu-Cortef) 100 mg Q8HRS IV Last administered on 07/19/16 05:50; Start 07/16/16 at 09:00; Stop 07/19/16 at 09:30 ; Status DC Sodium Polystyrene Sulfonate 30 gm 30 gm 1X ONCE PO Last administered on 08:41; Start 07/16/16 at 08:30; Stop 07/16/16 at 08:34; Status DC Albumin Human (Plasmanate) 500 ml @ 125 mls/hr PRN Q6HRS PRN IV for CVP < 10; MAP < 65 Last administered on 07/17/16 08:12; Start 07/16/16 at 08:30; Stop 07/24/16 at 14:38; Status DC Sodium Bicarbonate 50 meq 1X ONCE IV Last administered on 07/16/16 08:41; Start 07/16/16 at 08:45; Stop 07/16/16 at 08:46; Status DC Info (Anti-Coagulation Monitoring By Pharmacy) 1 each PRN DAILY PRN MC SEE COMMENTS; Start 07/16/16 at 08:45; Status Cancel Ipratropium [place] (Atrovent) 0.5 mg RTQID NEB Last administered on 07/26/16 10:57; Start 07/16/16 at 12:00 Lidocaine/Sodium Bicarbonate (Buffered Lidocaine 1%) 3 ml 1X ONCE IJ Last administered on 07/16/16 10:43; Start 07/16/16 at 09:15; Stop 07/16/16 at 09:16 ; Status DC Heparin Sodium/ Sodium Chloride 60 unit 1X ONCE IV Last administered on 10:44; Start 07/16/16 at 09:15; Stop 07/16/16 at 09:16; Status DC Heparin Sodium (Porcine) 2500 unit 2,500 unit 1X ONCE INT CAT Last administered on 07/16/16 10:44; Start 07/16/16 at 09:15; Stop 07/16/16 at 09:16 ; Status DC Sodium Chloride 40 meq/Sodium Acetate 40 meq/ Magnesium Sulfate 8 meq/Calcium Gluconate 5 meq/ Multivitamins 10 ml/Chromium/ Copper/Manganese/ Seleni/Zn 1 ml / Insulin Human Regular 10 unit/ Total Parenteral Nutrition/Amino Acids/Dextrose / Fat Emulsion Intravenous 1,512 ml @ 63 mls/hr TPN CONT IV Last administered on 07/16/16 21:53; Start 07/16/16 at 22:00; Stop 07/17/16 at 21:59 ; Status DC Pantoprazole Sodium 80 mg/ Sodium Chloride 100 ml @ 10 mls/hr Q10H IV Last administered on 07/21/16 10:10; Start 07/17/16 at 06:45; Stop 07/21/16 at 12:21 ; Status DC Sodium Acetate/ Potassium Acetate/ Magnesium Sulfate/ Calcium Gluconate/ Multivitamins/ Chromium/Copper/ Manganese/Seleni/ Zn/Insulin Human Regular/ Total Parenteral Nutrition/Amino Acids/Dextrose/ Fat Emulsion Intravenous ( Calcium Gluconate/ Infuvite Adult/ Multitrace-5 Conc/ Novolin R Vi... 1,512 ml @ 63 mls/hr TPN CONT IV Last administered on 07/17/16 21:49; Start 07/17/16 at 22:00; Stop 07/18/16 at 21:59; Status DC Insulin Detemir (Levemir) 25 units BID SQ Last administered on 07/17/16 20:51 ; Start 07/17/16 at 10:30; Stop 07/18/16 at 08:12; Status DC Insulin Aspart (Novolog) 0-9 UNITS TIDWMEALS SQ Last administered on 07/18/16 10:03; Start 07/17/16 at 12:00; Stop 07/18/16 at 11:55; Status DC Dextrose 12.5 gm PRN Q15MIN PRN IV SEE COMMENTS; Start 07/17/16 at 10:15; Status UNV Iohexol (Omnipaque 300 Mg/ml) 100 ml STK-MED ONCE .ROUTE ; Start 07/17/16 at 10: 45; Stop 07/17/16 at 10:46; Status DC Lidocaine/Sodium Bicarbonate 20 ml 20 ml STK-MED ONCE IJ ; Start 07/17/16 at 10: 45; Stop 07/17/16 at 10:46; Status DC Heparin Sodium/ Sodium Chloride 500 ml @ As Directed STK-MED ONCE .ROUTE ; Start 07/17/16 at 10:46; Stop 07/17/16 at 10:47; Status DC Heparin Sodium/ Sodium Chloride 1,000 unit 1X ONCE IART Last administered on 11:27; Start 07/17/16 at 11:15; Stop 07/17/16 at 11:26; Status DC Lidocaine/Sodium Bicarbonate (Buffered Lidocaine 1%) 3 ml 1X ONCE IJ Last administered on 07/17/16 11:15; Start 07/17/16 at 11:15; Stop 07/17/16 at 11:26 ; Status DC Iohexol (Omnipaque 300 Mg/ml) 40 ml 1X ONCE IART Last administered on 11:26; Start 07/17/16 at 11:15; Stop 07/17/16 at 11:26; Status DC Info (Do NOT chart on this entry -- for MONITORING) 1 each PRN DAILY PRN MC SEE COMMENTS; Start 07/17/16 at 11:30; Stop 07/19/16 at 11:29; Status DC Calcium Chloride 2,000 mg STK-MED ONCE IV ; Start 07/16/16 at 13:02; Stop at 13:03; Status DC Epinephrine HCl 4 mg STK-MED ONCE .ROUTE ; Start 07/16/16 at 13:02; Stop at 13:03; Status DC Furosemide 40 mg 40 mg 1X ONCE IVP Last administered on 07/17/16 16:45; Start 07/17/16 at 16:45; Stop 07/17/16 at 16:47; Status DC Propofol (Diprivan) 100 ml @ As Directed STK-MED ONCE IV ; Start 07/17/16 at 16 :36; Stop 07/17/16 at 16:37; Status DC Insulin Detemir (Levemir) 35 units BID SQ Last administered on 07/18/16 10:00 ; Start 07/18/16 at 09:00; Stop 07/18/16 at 11:55; Status DC Insulin Aspart (Novolog) 10 units Q6HRS SQ ; Start 07/18/16 at 12:00; Stop 07/18 at 12:00; Status DC Insulin Aspart 20 units 20 units 1X ONCE SQ Last administered on 07/18/16 10: 02; Start 07/18/16 at 08:15; Stop 07/18/16 at 11:56; Status DC Sodium Acetate/ Potassium Acetate/ Magnesium Sulfate/ Calcium Gluconate/ Multivitamins/ Chromium/Copper/ Manganese/Seleni/ Zn/Insulin Human Regular/ Total Parenteral Nutrition/Amino Acids/Dextrose/ Fat Emulsion Intravenous ( Calcium Gluconate/ Infuvite Adult/ Multitrace-5 Conc/ Novolin R Vi... 1,512 ml @ 63 mls/hr TPN CONT IV Last administered on 07/18/16 22:03; Start 07/18/16 at 22:00; Stop 07/19/16 at 21:59; Status DC Atropine Sulfate 0.5 mg 0.5 mg STK-MED ONCE .ROUTE ; Start 07/18/16 at 09:43; Stop 07/18/16 at 09:44; Status DC Insulin Human Regular/Sodium Chloride (Novolin R Vial/ Iv Normal Saline 150ml) 151.5 ml @ 0 mls/hr CONT PRN IV SEE I/O RECORD Last administered on 07/18/16 13:54; Start 07/18/16 at 11:45; Stop 07/19/16 at 10:27; Status DC Dextrose 12.5 gm 12.5 gm PRN Q15MIN PRN IV LOW BLOOD SUGAR; Start 07/18/16 at 11:45; Stop 07/19/16 at 10:53; Status DC Potassium Chloride (KCl Premix 20meq) 50 ml @ 25 mls/hr Q2H IV Last administered on 07/19/16 11:09; Start 07/19/16 at 09:30; Stop 07/19/16 at 13:29 ; Status DC Propofol (Diprivan) 1,000 mg STK-MED ONCE IV ; Start 07/17/16 at 16:36; Stop at 08:22; Status DC Atropine Sulfate 1 mg STK-MED ONCE .ROUTE ; Start 07/18/16 at 09:43; Stop at 08:53; Status DC Hydrocortisone Sodium Succinate (Solu-Cortef) 50 mg Q8HRS IV Last administered on 07/24/16 05:27; Start 07/19/16 at 14:00; Stop 07/24/16 at 14:38; Status DC Heparin Sodium (Porcine) 7400 unit 7,400 unit 1X ONCE IV Last administered on 07/19/16 10:03; Start 07/19/16 at 09:45; Stop 07/19/16 at 09:53; Status DC Heparin Sodium/ Dextrose 500 ml @ 0 mls/hr CONT PRN IV SEE I/O RECORD Last administered on 07/25/16 01:58; Start 07/19/16 at 09:45; Stop 07/25/16 at 13:12; Status DC Heparin Sodium (Porcine) 2,800 unit PRN Q6HRS PRN IV FOR UFH LEVEL LESS THAN 0.2; Start 07/19/16 at 09:45; Stop 07/23/16 at 08:12; Status DC Heparin Sodium (Porcine) 1,400 unit PRN Q6HRS PRN IV FOR UFH LEVEL 0.2 - 0.29 Last administered on 07/20/16 12:06; Start 07/19/16 at 09:45; Stop 07/23/16 at 08:12; Status DC Warfarin Sodium (Coumadin Per Pharmacy) 1 each PRN DAILY PRN MC PER PROTOCOL Last administered on 07/25/16 13:14; Start 07/19/16 at 09:45 Insulin Aspart (Novolog) 0-5 UNITS TIDWMEALS SQ Last administered on 07/19/16 12:02; Start 07/19/16 at 12:00; Stop 07/19/16 at 16:45; Status DC Dextrose 12.5 gm 12.5 gm PRN Q15MIN PRN IV SEE COMMENTS; Start 07/19/16 at 10: 30; Stop 07/24/16 at 13:40; Status DC Potassium Acetate/ Magnesium Sulfate/ Calcium Gluconate/ Multivitamins/ Chromium /Copper/ Manganese/Seleni/ Zn/Insulin Human Regular/Total Parenteral Nutrition/ Amino Acids/Dextrose/ Fat Emulsion Intravenous (Calcium Gluconate/ Infuvite Adult/ Multitrace-5 Conc/ Novolin R Vial/ Tpn - Tpn Flu... 1,200 ml @ 50 mls/ hr TPN CONT IV ; Start 07/19/16 at 22:00; Stop 07/19/16 at 22:00; Status DC Insulin Aspart (Novolog) 0-5 UNITS Q6HRS SQ Last administered on 07/21/16 12: 04; Start 07/19/16 at 18:00; Stop 07/21/16 at 12:34; Status DC Warfarin Sodium (Coumadin) 4 mg 1X WARF ONCE PO Last administered on 17:26; Start 07/19/16 at 17:02; Stop 07/19/16 at 17:03; Status DC Fentanyl Citrate (Fentanyl 2ml Vial) 50 mcg PRN Q2HR PRN IV PAIN Last administered on 07/22/16 03:15; Start 07/20/16 at 02:45; Stop 07/22/16 at 04:45 ; Status DC Warfarin Sodium (Coumadin) 5 mg 1X WARF ONCE PO Last administered on 17:09; Start 07/20/16 at 16:00; Stop 07/20/16 at 16:01; Status DC Midazolam HCl 1 mg 1 mg PRN Q1HR PRN IV sedation on vent; Start 07/20/16 at 11: 15; Stop 07/22/16 at 04:46; Status DC Sodium Chloride (Iv Sodium Chloride 0.9% 1000ml Bag) 1,000 ml @ 75 mls/hr [id number] IV Last administered on 07/23/16 05:31; Start 07/20/16 at 11:15; Stop 07/23/16 at 11:50; Status DC Midazolam HCl (Versed) 2 mg PRN Q1HR PRN IV sedation on vent; Start 07/20/16 at 11:15; Stop 07/22/16 at 04:47; Status DC Midazolam HCl (Versed) 3 mg PRN Q1HR PRN IV sedation on vent; Start 07/20/16 at 11:15; Stop 07/22/16 at 04:47; Status DC Midazolam HCl (Versed) 4 mg PRN Q1HR PRN IV sedation on vent Last administered on 07/22/16 04:32; Start 07/20/16 at 11:15; Stop 07/22/16 at 04:47; Status DC Insulin Detemir (Levemir) 15 units QHS SQ Last administered on 07/20/16 20:47 ; Start 07/20/16 at 21:00; Stop 07/21/16 at 12:34; Status DC Warfarin Sodium (Coumadin) 5 mg 1X WARF ONCE PO Last administered on 15:37; Start 07/21/16 at 16:00; Stop 07/21/16 at 16:01; Status DC Pantoprazole Sodium (Protonix Vial) 40 mg DAILYAC IVP Last administered on 07/22 07:41; Start 07/22/16 at 07:30; Stop 07/23/16 at 04:47; Status DC Insulin Detemir (Levemir) 25 units QHS SQ Last administered on 07/25/16 21:16; Start 07/21/16 at 21:00; Stop 07/26/16 at 08:09; Status DC Docusate Sodium (Colace) 100 mg BID PO Last administered on 07/25/16 21:11; Start 07/21/16 at 21:00 Insulin Aspart (Novolog) 0-9 UNITS Q6HRS SQ Last administered on 07/25/16 18:03 ; Start 07/21/16 at 13:00 Fentanyl Citrate (Fentanyl 2ml Vial) 100 mcg STK-MED ONCE .ROUTE ; Start at 22:18; Stop 07/21/16 at 22:19; Status DC Midazolam HCl (Versed) 2 mg STK-MED ONCE .ROUTE ; Start 07/21/16 at 23:45; Stop 07/21/16 at 23:46; Status DC Fentanyl Citrate (Fentanyl 2ml Vial) 100 mcg STK-MED ONCE .ROUTE ; Start at 00:36; Stop 07/22/16 at 00:37; Status DC Midazolam HCl (Versed) 2 mg STK-MED ONCE .ROUTE ; Start 07/22/16 at 00:57; Stop 07/22/16 at 00:58; Status DC Midazolam HCl (Versed) 2 mg STK-MED ONCE .ROUTE ; Start 07/22/16 at 02:06; Stop 07/22/16 at 02:07; Status DC Midazolam HCl (Versed) 2 mg STK-MED ONCE .ROUTE ; Start 07/22/16 at 03:13; Stop 07/22/16 at 03:14; Status DC Fentanyl Citrate (Fentanyl 2ml Vial) 100 mcg STK-MED ONCE .ROUTE ; Start at 03:14; Stop 07/22/16 at 03:15; Status DC Midazolam HCl (Versed) 2 mg STK-MED ONCE .ROUTE ; Start 07/22/16 at 04:29; Stop 07/22/16 at 04:30; Status DC Fentanyl Citrate (Fentanyl 2ml Vial) 50 mcg PRN Q2HR PRN IV SEVERE PAIN Last administered on 07/24/16 07:27; Start 07/22/16 at 04:45 Midazolam HCl (Versed) 1 mg PRN Q1HR PRN IV sedation on vent; Start 07/22/16 at 04:46 Midazolam HCl (Versed) 2 mg PRN Q1HR PRN IV sedation on vent Last administered on 07/22/16 07:42; Start 07/22/16 at 04:47 Midazolam HCl (Versed) 3 mg PRN Q1HR PRN IV sedation on vent; Start 07/22/16 at 04:47 Midazolam HCl (Versed) 4 mg PRN Q1HR PRN IV sedation on vent Last administered on 07/22/16 05:33; Start 07/22/16 at 04:47 Warfarin Sodium (Coumadin) 7.5 mg 1X WARF ONCE PO Last administered on 17:38; Start 07/22/16 at 16:00; Stop 07/22/16 at 16:01; Status DC Metoprolol Tartrate (Lopressor) 5 mg Q6HRS IVP Last administered on 07/26/16 06 :09; Start 07/22/16 at 12:30; Stop 07/26/16 at 09:08; Status DC Atorvastatin Calcium (Lipitor) 40 mg STK-MED ONCE .ROUTE ; Start 07/22/16 at 20: 37; Stop 07/22/16 at 20:38; Status DC Diphenhydramine HCl (Benadryl) 25 mg PRN Q6HRS PRN IVP ANAPHYLAXIS; Start 07/23 at 04:47 Pantoprazole Sodium (Protonix Vial) 40 mg DAILYAC IVP Last administered on 07:48; Start 07/23/16 at 04:47 Heparin Sodium (Porcine) 3,100 unit PRN Q6HRS PRN IV FOR UFH LEVEL LESS THAN 0.2; Start 07/23/16 at 08:15; Stop 07/24/16 at 13:37; Status DC Heparin Sodium (Porcine) 1,600 unit PRN Q6HRS PRN IV FOR UFH LEVEL 0.2 - 0.29 Last administered on 07/23/16 08:26; Start 07/23/16 at 08:15; Stop 07/24/16 at 13:39; Status DC Warfarin Sodium 7.5 mg 7.5 mg 1X WARF ONCE PO Last administered on 07/23/16 16:53; Start 07/23/16 at 16:00; Stop 07/23/16 at 16:01; Status DC Potassium Chloride 50 ml @ 50 mls/hr Q1H IV Last administered on 07/23/16 13: 39; Start 07/23/16 at 11:00; Stop 07/23/16 at 12:59; Status DC Amino Acids/ Electrolytes/ Dextrose (Clinimix E 4.25%-5% Solution) 1,000 ml @ 80 mls/hr [id number] IV Last administered on 07/25/16 03:30; Start 07/23/16 at 12: 00 Atorvastatin Calcium (Lipitor) 40 mg STK-MED ONCE .ROUTE ; Start 07/23/16 at 20: 33; Stop 07/23/16 at 20:34; Status DC Warfarin Sodium (Coumadin) 5 mg 1X WARF ONCE PO ; Start 07/24/16 at 16:00; Stop 07/24/16 at 16:01; Status DC Heparin Sodium (Porcine) (Heparin Sodium) 3,100 unit PRN Q6HRS PRN IV FOR UFH LEVEL LESS THAN 0.2; Start 07/24/16 at 13:37; Stop 07/25/16 at 13:12; Status DC Heparin Sodium (Porcine) (Heparin Sodium) 1,600 unit PRN Q6HRS PRN IV FOR UFH LEVEL 0.2 - 0.29; Start 07/24/16 at 13:39; Status Cancel Atorvastatin Calcium (Lipitor) 40 mg HS PO Last administered on 07/25/16 21:11 ; Start 07/24/16 at 21:00 Dextrose (Dextrose 50%-Water Syringe) 12.5 gm PRN Q15MIN PRN IV SEE COMMENTS Last administered on 07/26/16 07:42; Start 07/24/16 at 13:40; Stop 07/26/16 at 09: 07; Status DC Hydralazine HCl (Apresoline) 20 mg PRN Q4HRS PRN IVP ELEVATED BP, SEE COMMENTS Last administered on 07/26/16 10:33; Start 07/24/16 at 14:45 Hydrocortisone Sodium Succinate (Solu-Cortef) 50 mg BID IV Last administered on 07/25/16 21:15; Start 07/24/16 at 21:00; Stop 07/26/16 at 09:07; Status DC Clonidine HCl 1 patch 1 patch WEEKLY TD Last administered on 07/24/16 19:05; Start 07/24/16 at 15:00; Stop 07/26/16 at 09:07; Status DC Nicardipine HCl/ Sodium Chloride (Cardene/Iv Sodium Chloride 0.9% 250ml) 270 ml @ 0 mls/hr CONT PRN IV SEE I/O RECORD Last administered on 07/25/16 22:46; Start 07/25/16 at 08:45; Stop 07/26/16 at 09:04; Status DC Warfarin Sodium (Coumadin) 5 mg 1X WARF ONCE PO Last administered on 07/25/16 15:09; Start 07/25/16 at 16:00; Stop 07/25/16 at 16:01; Status DC Lorazepam (Ativan) 1 mg PRN Q4HRS PRN IV ANXIETY / AGITATION Last administered on 07/26/16 05:29; Start 07/26/16 at 01:30 Clonidine HCl (Catapres Tts-2) 2 patch WEEKLY TD Last administered on 07/26/16 10:34; Start 07/26/16 at 10:00 Hydrocortisone Sodium Succinate 25 mg 25 mg BID IV Last administered on 10:35; Start 07/26/16 at 09:00 Potassium Chloride (KCl Premix 20meq) 50 ml @ 50 mls/hr Q1H IV Last administered on 07/26/16 10:35; Start 07/26/16 at 10:00; Stop 07/26/16 at 11:59 Active Scripts Active Levemir Flextouch (Insulin Detemir) 100 Unit/1 Ml Insuln.pen 20 Units SQ QHS 30 Days Novolog Flexpen (Insulin Aspart) 100 Unit/1 Ml Insuln.pen 10 Units SQ TIDAC 30 Days Reported Advair 100-50 Diskus (Fluticasone/Salmeterol) 1 Each Disk.w.dev 1 Puff IH BID Spiriva Respimat (Tiotropium [place]) 4 Gm Mist.inhal 2.5 Gm IH DAILY Symbicort 160-4.5 Mcg Inhaler (Budesonide/Formoterol Fumarate) 10.2 Gm Hfa.aer.ad 2 Puff IH BID Atorvastatin Calcium 20 Mg Tablet 20 Mg PO HS Lisinopril-Hctz 10-12.5 Mg Tab (Lisinopril/Hydrochlorothiazide) 1 Each Tablet 1 Tab PO DAILY Isosorbide Mononitrate Er (Isosorbide Mononitrate) 120 Mg Tab.er.24h 120 Mg PO DAILY Novolin N (Nph, Human Insulin Isophane) 100 Unit/1 Ml Vial 0 SQ Promethazine-Codeine Syrup (Promethazine Hcl/Codeine) 118 Ml Syrup 5 Ml PO Q4- 6HRS Diltiazem 24HR Cd (Diltiazem Hcl) 240 Mg Cap.er.24h 240 Mg PO DAILY NITROGLYCERIN SubLingual (Nitroglycerin) 0.4 Mg Tab.subl 0.4 Mg SL PRN Q5MIN PRN Atorvastatin Calcium 40 Mg Tablet 40 Mg PO HS Vitals/I & O Vital Sign - Last 24 Hours 07/25/16 07/25/16 07/25/16 07/25/16 11:58 12:00 12:00 12:31 Pulse 86 87 Resp 26 B/P 156/72 154/68 Pulse Ox 95 99 O2 Delivery Room Air Nasal Cannula O2 Flow Rate 2.0 07/25/16 07/25/16 07/25/16 07/25/16 13:00 13:34 14:00 15:00 Temp 99.0 99.0 Pulse 74 76 84 Resp 32 25 27 20 B/P 135/67 140/64 147/64 Pulse Ox 92 92 91 92 O2 Delivery Room Air 07/25/16 07/25/16 07/25/16 07/25/16 15:30 16:00 16:00 17:00 Pulse 80 86 Resp 27 15 B/P 140/66 152/76 Pulse Ox 93 94 93 O2 Delivery Room Air Nasal Cannula O2 Flow Rate 2.0 07/25/16 07/25/16 07/25/16 07/25/16 17:57 18:00 18:00 18:27 Pulse 71 68 Resp 26 16 16 B/P 160/74 130/60 Pulse Ox 92 91 95 O2 Delivery Room Air Room Air 07/25/16 07/25/16 07/25/16 07/25/16 19:00 20:00 20:00 20:08 Temp 98.2 98.2 Pulse 74 78 Resp 25 26 B/P 138/63 160/70 Pulse Ox 94 97 94 O2 Delivery Room Air Room Air Room Air Nasal Cannula O2 Flow Rate 2.0 07/25/16 07/25/16 07/25/16 07/25/16 21:00 22:00 23:00 23:42 Pulse 78 64 65 76 Resp 26 20 22 B/P 134/62 127/55 132/56 156/75 Pulse Ox 95 97 98 O2 Delivery Nasal Cannula Nasal Cannula Nasal Cannula O2 Flow Rate 2.0 2.0 2.0 07/25/16 07/26/16 07/26/16 07/26/16 23:45 00:00 00:00 01:00 Temp 98.3 98.3 Pulse 64 68 Resp 20 B/P 134/68 140/68 Pulse Ox 98 97 97 O2 Delivery Nasal Cannula Nasal Cannula Nasal Cannula Nasal Cannula O2 Flow Rate 2.0 2.0 2.0 2.0 07/26/16 07/26/16 07/26/16 07/26/16 01:45 02:00 02:15 03:00 Pulse 64 64 Resp 22 B/P 139/77 129/66 142/67 128/69 Pulse Ox 94 95 O2 Delivery Nasal Cannula Nasal Cannula O2 Flow Rate 2.0 2.0 07/26/16 07/26/16 07/26/16 07/26/16 04:00 04:00 05:07 06:00 Temp 98.7 98.5 98.4 98.7 98.5 98.4 Pulse 70 64 64 Resp 18 22 B/P 155/75 158/87 144/82 Pulse Ox 99 97 O2 Delivery Nasal Cannula Nasal Cannula Nasal Cannula O2 Flow Rate 2.0 2.0 2.0 2.0 07/26/16 07/26/16 07/26/16 07/26/16 06:09 07:29 10:33 10:58 Pulse 65 60 B/P 144/82 183/89 Pulse Ox 99 98 O2 Delivery Nasal Cannula Nasal Cannula O2 Flow Rate 6.0 2.0 Intake and Output 07/25/16 07/25/16 07/26/16 15:00 23:00 07:00 Intake Total 2004 ml 1671 ml Output Total 1280 ml 1650 ml Balance 724 ml 21 ml Problem List Problems Medical Problems: (1) COPD exacerbation Status: Acute (2) Hyperglycemia Status: Acute Assessment Oropharyngeal dysphagia- s/p extubation, tube feedings for now Anemia- Hg stable, no overt bleeding presently SUSAN AN MD Jul 26, 2016 11:54
--- NOTE | 2016-07-26 13:08 | RAD ---
CT neck without intravenous contrast History: Stridor, history of angioedema, tongue swelling. Comparison: CT face 07/12/2016. Technique: Helical CT of the neck was performed without intravenous contrast. Axial, sagittal, and coronal reconstructions were obtained. One or more of the following individualized dose reduction techniques were utilized for the study: Automated exposure control Adjustment of mA and/or kV according to patient's size Use of iterative reconstruction technique. Findings: Evaluation of solid organs, vascular structures, and for lymphadenopathy is limited by lack of intravenous contrast. There is also motion artifact at many levels which could obscure subtle abnormalities. There is interval reduction in amount of tongue swelling. Airway appears patent. There is a right internal jugular central venous catheter. Thyroid is not well seen. No neck lymphadenopathy is seen. Bilateral parotid and submandibular glands appear symmetric. There is complete opacification of the sphenoid sinus as well as several left posterior ethmoid air cells. Right maxillary sinus demonstrates moderate mucosal disease and is decreased in size, similar to previous study, may be on a post traumatic basis. No neck soft tissue fluid collections are seen. No convincing soft tissue neck masses identified. Images of the upper chest demonstrate left greater than right pleural effusions, not adequately assessed. Emphysematous changes are seen.. Impression: 1. Interval reduction in size of tongue, compatible with improvement in known tongue swelling. Airway is patent. 2. Paranasal sinus disease. 3. Pulmonary emphysema. 4. Left greater than right pleural effusions.
[2016-07-26] MEDS ORDERED: DEXTROSE 50% 25 GM / 50ML DISP.SYRIN. IV ONE (13:21)
[2016-07-26] MEDS ORDERED: DEXTROSE 50% 25 GM / 50ML DISP.SYRIN. IV PRN (13:30)
[2016-07-26 14:09] LABS: INR 2.4 (0.8-1.1); PROTHROMBIN TIME PATIENT 24.7 SEC (11.7-14.0)
[2016-07-26] MEDS ORDERED: DIPHENHYDRAMINE 50 MG/ML VIAL. IVP PRN (15:00)
[2016-07-26] MEDS ORDERED: methylPREDNISolone SOD SUCC PF 125 MG/2 ML VIAL. IV ONE (15:30)
[2016-07-26] MEDS ORDERED: DIPHENHYDRAMINE 50 MG/ML VIAL. IVP ONE (15:30)
[2016-07-26] MEDS ORDERED: ALTEPLASE 2 MG VIAL INT CAT ONE (15:45)
[2016-07-26] MEDS ORDERED: WARFARIN 5 MG TABLET. PO ONE (16:00)
[2016-07-26] MEDS: ATORVASTATIN CALCIUM 40 MG TABLET. PO SCH (21:00)
[2016-07-27] VITALS (13 sets, daily range): BP systolic 131–185; BP diastolic 70–108
[2016-07-27] MEDS: INSULIN ASPART 300 UNITS/3 ML INSULN.PEN SQ SCH ×4 (00:59→18:05)
[2016-07-27] MEDS: hydrALAZINE 20 MG/ML VIAL. IVP PRN ×2 (04:12→07:47)
[2016-07-27] MEDS: AA 4.25%/CALCIUM/LYTES/D5W 1,000 ML IV SCH (04:34)
[2016-07-27 06:13] LABS: BASO % 0 % (0-3); EOS % 0 % (0-3); HEMATOCRIT 35.1 % (39.0-53.0); LYMPH # 0.5 x10^3/uL (1.0-4.8); LYMPH % 4 % (24-48); MEAN CORPUSCULAR HEMOGLOBIN 28 pg (25-35); MEAN CORPUSCULAR HGB CONC 31 g/dL (31-37); MEAN CORPUSCULAR VOLUME 89 fL (79-100); MONO % 5 % (0-9); NEUT % 91 % (31-73); PLATELET COUNT 241 x10^3/uL (140-400); RED BLOOD COUNT 3.93 x10^6/uL (4.30-5.70); RED CELL DISTRIBUTION WIDTH 15.1 % (11.5-14.5); WHITE BLOOD COUNT 15.1 x10^3/uL (4.0-11.0)
[2016-07-27 06:15] LABS: CALCIUM 8.5 mg/dL (8.5-10.1); CREATININE 1.1 mg/dL (0.7-1.3); GFR 79.4; POTASSIUM 4.9 mmol/L (3.5-5.1)
[2016-07-27] MEDS: PANTOPRAZOLE IV PUSH 40 MG VIAL. IVP SCH (07:46)
[2016-07-27] MEDS: IPRATROPIUM BROMIDE 0.5 MG/2.5 ML NEBU. NEB SCH ×4 (07:49→22:19)
[2016-07-27] MEDS: MUPIROCIN 2 % NASAL OINTMENT 22GM TUBE. NS SCH ×2 (09:00→21:32)
[2016-07-27] MEDS: DOCUSATE SODIUM 100 MG CAPSULE. PO SCH ×2 (09:00→21:00)
[2016-07-27] MEDS: HYDROCORTISONE SOD SUCC/PF 100 MG/2 ML VIAL. IV SCH (09:48)
[2016-07-27] MEDS: SCOPOLAMINE 1.5MG PATCH. TD SCH (09:48)
--- NOTE | 2016-07-27 09:58 | PDOC ---
PROGRESS NOTES Chief Complaint Chief Complaint Angioedema - angioedema, likely 2/2 to ACEI; self extubated 07/14/16 - resolved - s/p CP arrest (PEA) sec to Multiple bilateral PE (07/15) - Non-occlusive thrombus, R leg (07/15) - COPD exacerbation - Low TSH levels in a critically ill patient - DM2; insulin requiring - Oliguric Hyperkalemic renal failure - Metabolic acidosis s/p arrest - Dyslipidemia on statin - Hypotensive shock, resolved and off pressors - Acute respiratory failure - intubated again (07/15) secondary to code blue ( PEA # 2) STRIDOR TONGUE SWELLING (07/26/16 History of Present Illness History of Present Illness Seen in ICU Some tongue swelling yesterday again after hydralazine iV prn for high BP and clonidine second patch placed As reviewed with pharmacist by RN, possible culprits include lipitor, and clonidine patch Up in chair today Strong voice, not confused, INDIVIDUAL PENSION ADVISER eval pending Hungry CT soft tissue neck shows resolution of tongue swelling PLAN: Ok to t./o ICU to CVC PT/OT INDIVIDUAL PENSION ADVISER eval Ok to keep hydralazine and clonidine patch prn MOnitor fof further angioedema NO ADAN inhib Likely will pass INDIVIDUAL PENSION ADVISER LOts of secretions - encourage IS Weak, will need rehab Dw 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 ) Abdomen: Normal bowel sounds, Soft, No tenderness, No hepatosplenomegaly, No masses Extremities: No clubbing, No cyanosis, No edema, Normal pulses, No tenderness/ swelling Skin: No rashes, Other (dry mucosal membranes ) Labs LABS Laboratory Tests Test 07/26/16 13:20 07/26/16 13:21 07/26/16 13:29 07/26/16 13:30 Glucose (Fingerstick) 36mg/dL (70-99) 39mg/dL (70-99) 197mg/dL (70-99) Prothrombin Time 24.7SEC (11.7-14.0) Prothromb Time International Ratio 2.4 (0.8-1.1) Test 07/26/16 17:14 07/26/16 18:37 07/26/16 21:03 07/27/16 00:35 Glucose (Fingerstick) 87mg/dL (70-99) 117mg/dL (70-99) 155mg/dL (70-99) 221mg/dL (70-99) Test 07/27/16 05:46 07/27/16 05:50 Glucose (Fingerstick) 217mg/dL (70-99) White Blood Count 15.1x10^3/uL (4.0-11.0) Red Blood Count 3.93x10^6/uL (4.30-5.70) Hemoglobin 11.0g/dL (13.0-17.5) Hematocrit 35.1% (39.0-53.0) Mean Corpuscular Volume 89fL (79-100) Mean Corpuscular Hemoglobin 28pg (25-35) Mean Corpuscular Hemoglobin Concent 31g/dL (31-37) Red Cell Distribution Width 15.1% (11.5-14.5) Platelet Count 241x10^3/uL (140-400) Neutrophils (%) (Auto) 91% (31-73) Lymphocytes (%) (Auto) 4% (24-48) Monocytes (%) (Auto) 5% (0-9) Eosinophils (%) (Auto) 0% (0-3) Basophils (%) (Auto) 0% (0-3) Neutrophils # (Auto) 13.8x10^3uL (1.8-7.7) Lymphocytes # (Auto) 0.5x10^3/uL (1.0-4.8) Monocytes # (Auto) 0.7x10^3/uL (0.0-1.1) Eosinophils # (Auto) 0.0x10^3/uL (0.0-0.7) Basophils # (Auto) 0.0x10^3/uL (0.0-0.2) Sodium Level 147mmol/L (136-145) Potassium Level 4.9mmol/L (3.5-5.1) Chloride Level 109mmol/L (98-107) Carbon Dioxide Level 25mmol/L (21-32) Anion Gap 13 (6-14) Blood Urea Nitrogen 39mg/dL (8-26) Creatinine 1.1mg/dL (0.7-1.3) Estimated GFR (Cockcroft-Gault) 79.4 Glucose Level 262mg/dL (70-99) Calcium Level 8.5mg/dL (8.5-10.1) Review of Systems Review of Systems cough, no soa, no cp, weak Assessment and Plan Assessmemt and Plan Problems Medical Problems: (1) COPD exacerbation Status: Acute (2) Hyperglycemia Status: Acute Problems: Comment Review of Relevant I have reviewed the following items valerie (where applicable) has been applied. Labs Laboratory Tests Test 07/25/16 11:44 07/25/16 12:27 07/25/16 18:02 07/25/16 21:10 Prothrombin Time 24.2SEC (11.7-14.0) Prothromb Time International Ratio 2.3 (0.8-1.1) Heparin Anti-Xa Act, Unfractionated 0.37IU/mL (0.30-0.70) Glucose (Fingerstick) 192mg/dL (70-99) 286mg/dL (70-99) 118mg/dL (70-99) Test 07/25/16 23:37 07/25/16 23:51 07/26/16 04:30 07/26/16 06:16 Glucose (Fingerstick) 50mg/dL (70-99) 130mg/dL (70-99) 50mg/dL (70-99) White Blood Count 18.4x10^3/uL (4.0-11.0) Red Blood Count 3.11x10^6/uL (4.30-5.70) Hemoglobin 8.7g/dL (13.0-17.5) Hematocrit 27.5% (39.0-53.0) Mean Corpuscular Volume 88fL (79-100) Mean Corpuscular Hemoglobin 28pg (25-35) Mean Corpuscular Hemoglobin Concent 32g/dL (31-37) Red Cell Distribution Width 15.5% (11.5-14.5) Platelet Count 173x10^3/uL (140-400) Neutrophils (%) (Auto) 88% (31-73) Lymphocytes (%) (Auto) 5% (24-48) Monocytes (%) (Auto) 6% (0-9) Eosinophils (%) (Auto) 0% (0-3) Basophils (%) (Auto) 0% (0-3) Neutrophils # (Auto) 16.2x10^3uL (1.8-7.7) Lymphocytes # (Auto) 1.0x10^3/uL (1.0-4.8) Monocytes # (Auto) 1.1x10^3/uL (0.0-1.1) Eosinophils # (Auto) 0.0x10^3/uL (0.0-0.7) Basophils # (Auto) 0.1x10^3/uL (0.0-0.2) Sodium Level 148mmol/L (136-145) Potassium Level 3.2mmol/L (3.5-5.1) Chloride Level 115mmol/L (98-107) Carbon Dioxide Level 28mmol/L (21-32) Anion Gap 5 (6-14) Blood Urea Nitrogen 30mg/dL (8-26) Creatinine 0.8mg/dL (0.7-1.3) Estimated GFR (Cockcroft-Gault) 114.7 Glucose Level 60mg/dL (70-99) Calcium Level 7.6mg/dL (8.5-10.1) Test 07/26/16 06:42 07/26/16 07:38 07/26/16 07:49 07/26/16 08:15 Glucose (Fingerstick) 75mg/dL (70-99) 51mg/dL (70-99) 98mg/dL (70-99) O2 Saturation 97% (92-99) Arterial Blood pH 7.46 (7.35-7.45) Arterial Blood pCO2 at Patient Temp 40mmHg (35-46) Arterial Blood pO2 at Patient Temp 99mmHg (65-108) Arterial Blood HCO3 28mmol/L (21-28) Arterial Blood Base Excess 4mmol/L (-3-3) FiO2 36% Test 07/26/16 13:20 07/26/16 13:21 07/26/16 13:29 07/26/16 13:30 Glucose (Fingerstick) 36mg/dL (70-99) 39mg/dL (70-99) 197mg/dL (70-99) Prothrombin Time 24.7SEC (11.7-14.0) Prothromb Time International Ratio 2.4 (0.8-1.1) Test 07/26/16 17:14 07/26/16 18:37 07/26/16 21:03 07/27/16 00:35 Glucose (Fingerstick) 87mg/dL (70-99) 117mg/dL (70-99) 155mg/dL (70-99) 221mg/dL (70-99) Test 07/27/16 05:46 07/27/16 05:50 Glucose (Fingerstick) 217mg/dL (70-99) White Blood Count 15.1x10^3/uL (4.0-11.0) Red Blood Count 3.93x10^6/uL (4.30-5.70) Hemoglobin 11.0g/dL (13.0-17.5) Hematocrit 35.1% (39.0-53.0) Mean Corpuscular Volume 89fL (79-100) Mean Corpuscular Hemoglobin 28pg (25-35) Mean Corpuscular Hemoglobin Concent 31g/dL (31-37) Red Cell Distribution Width 15.1% (11.5-14.5) Platelet Count 241x10^3/uL (140-400) Neutrophils (%) (Auto) 91% (31-73) Lymphocytes (%) (Auto) 4% (24-48) Monocytes (%) (Auto) 5% (0-9) Eosinophils (%) (Auto) 0% (0-3) Basophils (%) (Auto) 0% (0-3) Neutrophils # (Auto) 13.8x10^3uL (1.8-7.7) Lymphocytes # (Auto) 0.5x10^3/uL (1.0-4.8) Monocytes # (Auto) 0.7x10^3/uL (0.0-1.1) Eosinophils # (Auto) 0.0x10^3/uL (0.0-0.7) Basophils # (Auto) 0.0x10^3/uL (0.0-0.2) Sodium Level 147mmol/L (136-145) Potassium Level 4.9mmol/L (3.5-5.1) Chloride Level 109mmol/L (98-107) Carbon Dioxide Level 25mmol/L (21-32) Anion Gap 13 (6-14) Blood Urea Nitrogen 39mg/dL (8-26) Creatinine 1.1mg/dL (0.7-1.3) Estimated GFR (Cockcroft-Gault) 79.4 Glucose Level 262mg/dL (70-99) Calcium Level 8.5mg/dL (8.5-10.1) Laboratory Tests Test 07/26/16 13:20 07/26/16 13:21 07/26/16 13:29 07/26/16 13:30 Glucose (Fingerstick) 36mg/dL (70-99) 39mg/dL (70-99) 197mg/dL (70-99) Prothrombin Time 24.7SEC (11.7-14.0) Prothromb Time International Ratio 2.4 (0.8-1.1) Test 07/26/16 17:14 07/26/16 18:37 07/26/16 21:03 07/27/16 00:35 Glucose (Fingerstick) 87mg/dL (70-99) 117mg/dL (70-99) 155mg/dL (70-99) 221mg/dL (70-99) Test 07/27/16 05:46 07/27/16 05:50 Glucose (Fingerstick) 217mg/dL (70-99) White Blood Count 15.1x10^3/uL (4.0-11.0) Red Blood Count 3.93x10^6/uL (4.30-5.70) Hemoglobin 11.0g/dL (13.0-17.5) Hematocrit 35.1% (39.0-53.0) Mean Corpuscular Volume 89fL (79-100) Mean Corpuscular Hemoglobin 28pg (25-35) Mean Corpuscular Hemoglobin Concent 31g/dL (31-37) Red Cell Distribution Width 15.1% (11.5-14.5) Platelet Count 241x10^3/uL (140-400) Neutrophils (%) (Auto) 91% (31-73) Lymphocytes (%) (Auto) 4% (24-48) Monocytes (%) (Auto) 5% (0-9) Eosinophils (%) (Auto) 0% (0-3) Basophils (%) (Auto) 0% (0-3) Neutrophils # (Auto) 13.8x10^3uL (1.8-7.7) Lymphocytes # (Auto) 0.5x10^3/uL (1.0-4.8) Monocytes # (Auto) 0.7x10^3/uL (0.0-1.1) Eosinophils # (Auto) 0.0x10^3/uL (0.0-0.7) Basophils # (Auto) 0.0x10^3/uL (0.0-0.2) Sodium Level 147mmol/L (136-145) Potassium Level 4.9mmol/L (3.5-5.1) Chloride Level 109mmol/L (98-107) Carbon Dioxide Level 25mmol/L (21-32) Anion Gap 13 (6-14) Blood Urea Nitrogen 39mg/dL (8-26) Creatinine 1.1mg/dL (0.7-1.3) Estimated GFR (Cockcroft-Gault) 79.4 Glucose Level 262mg/dL (70-99) Calcium Level 8.5mg/dL (8.5-10.1) Microbiology 07/15/16 Blood Culture - Final, Complete NO GROWTH AFTER 5 DAYS 07/14/16 Urine Culture - Final, Complete 07/14/16 Urine Culture Result 1 (MARÍA) - Final, Complete 07/14/16 Urine Culture Result 2 (MARÍA) - Final, Complete 07/14/16 Antimicrobic Susceptibility - Final, Complete Medications Current Medications Albuterol/ Ipratropium (Duoneb) 6 ml 1X ONCE NEB Last administered on 12:34; Start 07/12/16 at 12:30; Stop 07/12/16 at 12:31; Status DC Prednisone 60 mg 60 mg 1X ONCE PO Last administered on 07/12/16 12:40; Start 07/12/16 at 12:30; Stop 07/12/16 at 12:31; Status DC Sodium Chloride (Iv Sodium Chloride 0.9% 1000ml Bag) 1,000 ml @ 1,000 mls/hr 1X ONCE IV Last administered on 07/12/16 13:12; Start 07/12/16 at 13:15; Stop 07/12/16 at 14:14; Status DC Insulin Human Regular (Novolin R Vial) 10 unit 1X ONCE IV Last administered on 07/12/16 13:16; Start 07/12/16 at 13:15; Stop 07/12/16 at 13:16; Status DC Diphenhydramine HCl (Benadryl) 50 mg STK-MED ONCE .ROUTE ; Start 07/12/16 at 14: 55; Stop 07/12/16 at 14:56; Status DC Diphenhydramine HCl (Benadryl) 50 mg 1X ONCE IVP Last administered on 15:15; Start 07/12/16 at 15:15; Stop 07/12/16 at 15:16; Status DC Atorvastatin Calcium (Lipitor) 40 mg HS PO Last administered on 07/23/16 20:45 ; Start 07/12/16 at 21:00; Stop 07/24/16 at 13:39; Status DC Diltiazem HCl (Cardizem 24hr Cd) 240 mg DAILY PO ; Start 07/12/16 at 16:30; Stop 07/13/16 at 17:18; Status DC Insulin Aspart (Novolog) 10 units TIDAC SQ ; Start 07/12/16 at 16:30; Stop 07/12 at 16:30; Status DC Insulin Detemir (Levemir) 20 units QHS SQ ; Start 07/12/16 at 21:00; Stop at 21:00; Status DC Promethazine HCl/ Codeine (Phenergan With Codeine) 5 ml QID PO ; Start 07/12/16 at 17:00; Stop 07/13/16 at 17:18; Status DC Non-Formulary Medication 2 puff BID IH ; Start 07/12/16 at 21:00; Status UNV Non-Formulary Medication 2.5 gm DAILY IH ; Start 07/13/16 at 09:00; Status UNV Budesonide (Pulmicort) 0.5 mg RTBID NEB Last administered on 07/13/16 07:30; Start 07/12/16 at 20:00; Stop 07/13/16 at 11:27; Status DC Albuterol/ Ipratropium (Duoneb) 3 ml RTQID NEB Last administered on 07/16/16 07:47; Start 07/12/16 at 20:00; Stop 07/16/16 at 08:38; Status DC Methylprednisolone Sodium Succinate (Solu-Medrol 40mg Vial) 60 mg 1X ONCE IV Last administered on 07/12/16 16:06; Start 07/12/16 at 16:30; Stop 07/12/16 at 16:31; Status DC Methylprednisolone Sodium Succinate (Solu-Medrol 40mg Vial) 60 mg DAILY IV ; Start 07/13/16 at 09:00; Stop 07/13/16 at 09:00; Status DC Pantoprazole Sodium (Protonix Vial) 40 mg DAILY IVP Last administered on 08:43; Start 07/13/16 at 09:00; Stop 07/17/16 at 20:37; Status DC Diphenhydramine HCl 25 mg 25 mg PRN Q6HRS PRN IVP ANAPHYLAXIS Last administered on 07/12/16 16:06; Start 07/12/16 at 16:00; Stop 07/23/16 at 04:47 ; Status DC Sodium Chloride (Iv Sodium Chloride 0.9% 1000ml Bag) 1,000 ml @ 150 mls/hr Q6H40M IV Last administered on 07/14/16 01:21; Start 07/12/16 at 16:30; Stop 07/14/16 at 09:31; Status DC Albuterol/ Ipratropium (Duoneb) 3 ml QID NEB ; Start 07/12/16 at 17:00; Status UNV Albuterol Sulfate (Ventolin Neb Soln) 2.5 mg PRN Q2HR PRN NEB SHORTNESS OF BREATH Last administered on 07/25/16 23:44; Start 07/12/16 at 16:00 Insulin Aspart (Novolog) 0-9 UNITS QID SQ Last administered on 07/14/16 08:37 ; Start 07/12/16 at 17:00; Stop 07/14/16 at 09:31; Status DC Dextrose 12.5 gm PRN Q15MIN PRN IV SEE COMMENTS; Start 07/12/16 at 16:00; Stop 07/15/16 at 12:46; Status DC Insulin Detemir (Levemir) 15 units QHS SQ ; Start 07/12/16 at 21:00; Stop at 21:00; Status DC Enoxaparin Sodium (Lovenox 40mg Syringe) 40 mg DAILY SQ Last administered on 08:54; Start 07/12/16 at 16:30; Stop 07/15/16 at 14:28; Status DC Insulin Detemir (Levemir) 20 units QHS SQ Last administered on 07/12/16 23:49 ; Start 07/12/16 at 21:00; Stop 07/13/16 at 15:18; Status DC Succinylcholine Chloride 200 mg 200 mg STK-MED ONCE .ROUTE ; Start 07/12/16 at 17:46; Stop 07/12/16 at 17:47; Status DC Propofol (Diprivan) 100 ml @ As Directed STK-MED ONCE IV ; Start 07/12/16 at 17 :46; Stop 07/12/16 at 17:47; Status DC Lidocaine HCl 100 mg STK-MED ONCE .ROUTE ; Start 07/12/16 at 18:02; Stop at 18:03; Status DC Ketamine HCl 500 mg 1X ONCE IV ; Start 07/12/16 at 18:30; Stop 07/12/16 at 18: 31; Status DC Midazolam HCl (Versed) 5 mg STK-MED ONCE .ROUTE ; Start 07/12/16 at 18:14; Stop 07/12/16 at 18:15; Status DC Midazolam HCl (Versed) 2 mg 1X ONCE IV ; Start 07/12/16 at 18:30; Stop at 18:31; Status DC Glycopyrrolate (Robinul) 1 mg 1X ONCE IV ; Start 07/12/16 at 18:30; Stop at 18:31; Status DC Oxymetazoline HCl (Afrin) 2 spray 1X ONCE NS ; Start 07/12/16 at 18:30; Stop at 18:31; Status DC Lidocaine HCl 30 ml STK-MED ONCE .ROUTE ; Start 07/12/16 at 18:19; Stop at 18:20; Status DC Vecuronium [place] 6 mg 6 mg PRN Q4HRS PRN IV ANXIETY / AGITATION Last administered on 07/12/16 19:55; Start 07/12/16 at 19:00; Stop 07/15/16 at 07:58 ; Status DC Propofol (Diprivan) 100 ml @ 0 mls/hr CONT PRN IV SEE I/O RECORD Last administered on 07/14/16 13:42; Start 07/12/16 at 19:00; Stop 07/15/16 at 07:58 ; Status DC Insulin Aspart 10 units 10 units 1X ONCE SQ Last administered on 07/12/16 19: 41; Start 07/12/16 at 19:45; Stop 07/12/16 at 19:46; Status DC Vecuronium [place] 100 mg/ Dextrose 100 ml @ 0 mls/hr CONT PRN IV SEE I/O RECORD Last administered on 07/13/16 20:48; Start 07/12/16 at 21:00; Stop 07/14 at 09:31; Status DC Fentanyl Citrate (Fentanyl 600 Mcg/30 ml 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) 30 ml @ 0 mls/hr CONT PRN IV PROTOCOL Last administered on 07/14/16 09:33; Start 07/12/16 at 22:00; Stop at 07:58; Status DC Chlorhexidine Gluconate (Peridex) 15 ml BID MM Last administered on 07/23/16 08:22; Start 07/13/16 at 09:00; Stop 07/23/16 at 09:42; Status DC Methylprednisolone Sodium Succinate (Solu-Medrol 125mg Vial) 125 mg BID IV Last administered on 07/14/16 21:02; Start 07/13/16 at 09:00; Stop 07/15/16 at 07:58; Status DC Rocuronium [place] (Zemuron) 50 mg STK-MED ONCE .ROUTE ; Start 07/12/16 at 15:00 ; Stop 07/13/16 at 08:54; Status DC Glycopyrrolate (Robinul) 1 mg STK-MED ONCE .ROUTE ; Start 07/12/16 at 15:00; Stop 07/13/16 at 08:54; Status DC Lidocaine HCl 30 ml STK-MED ONCE .ROUTE ; Start 07/12/16 at 18:00; Stop at 09:05; Status DC Midazolam HCl (Versed) 5 mg STK-MED ONCE .ROUTE ; Start 07/12/16 at 18:00; Stop 07/13/16 at 09:05; Status DC Propofol (Diprivan) 1,000 mg STK-MED ONCE IV ; Start 07/12/16 at 18:00; Stop at 09:05; Status DC Succinylcholine Chloride (Anectine) 200 mg STK-MED ONCE .ROUTE ; Start 07/12/16 at 18:00; Stop 07/13/16 at 09:05; Status DC Multi-Ingred Cream/Lotion/Oil/ Oint (Artificial Tears Eye Oint) 1 margie PRN Q1HR PRN OU DRY EYE Last administered on 07/13/16t 15:45; Start 07/13/16 at 11:00 Ketamine HCl 500 mg STK-MED ONCE .ROUTE ; Start 07/12/16 at 18:30; Stop at 12:05; Status DC Insulin Aspart (Novolog) 10 units 1X STAT SQ Last administered on 07/13/16 12 :36; Start 07/13/16 at 12:17; Stop 07/13/16 at 12:20; Status DC Insulin Aspart (Novolog) 10 units 1X ONCE SQ Last administered on 07/13/16 14 :31; Start 07/13/16 at 14:30; Stop 07/13/16 at 14:31; Status DC Insulin Detemir (Levemir) 40 units QHS SQ Last administered on 07/13/16 20:50 ; Start 07/13/16 at 21:00; Stop 07/14/16 at 09:31; Status DC Benzocaine (Hurricaine One) 1 spray STK-MED ONCE .ROUTE ; Start 07/12/16 at 12: 00; Stop 07/13/16 at 16:00; Status DC Lidocaine HCl 5 margie 5 margie STK-MED ONCE TP ; Start 07/12/16 at 12:00; Stop at 16:00; Status DC Insulin Human Regular/Sodium Chloride (Novolin R Vial/ Iv Normal Saline 150ml) 151.5 ml @ 0 mls/hr CONT PRN IV SEE I/O RECORD Last administered on 07/14/16 10:01; Start 07/14/16 at 09:30; Stop 07/15/16 at 07:58; Status DC Info 1 each 1 each PRN DAILY PRN MC SEE COMMENTS Last administered on 08:27; Start 07/14/16 at 09:30; Stop 07/19/16 at 16:30; Status DC Magnesium Sulfate/ Dextrose 50 ml @ 25 mls/hr PRN DAILY PRN IV for Mag < 1.7 on am labs; Start 07/14/16 at 11:15; Stop 07/15/16 at 07:58; Status DC Sodium Chloride 500 ml @ 500 mls/hr QID PRN IV UO< 30cc/hr over previous 6hrs ; Start 07/14/16 at 11:15; Stop 07/14/16 at 11:26; Status DC Sodium Chloride 500 ml @ 500 mls/hr PRN QID PRN IV UO< 30cc/hr over previous 6hrs Last administered on 07/16/16 10:00; Start 07/14/16 at 11:26; Stop at 09:07; Status DC Ceftriaxone Sodium 1 gm/ Sodium Chloride 50 ml @ 100 mls/hr Q24H IV Last administered on 07/19/16 12:25; Start 07/14/16 at 12:00; Stop 07/20/16 at 12:29 ; Status DC Sodium Chloride/ Magnesium Sulfate/ Calcium Gluconate/ Multivitamins/ Chromium/ Copper/ Manganese/Seleni/ Zn/Total Parenteral Nutrition/Amino Acids/Dextrose ( Sodium Chloride/ Infuvite Adult/ Multitrace-5 Conc/ Tpn - Tpn Fluid/ Trophamine / Dextrose 70%-Water Iv Soln) 1,512 ml @ 63 mls/hr TPN CONT IV Last administered on 07/14/16 22:29; Start 07/14/16 at 22:00; Stop 07/15/16 at 21:59 ; Status DC Hydralazine HCl (Apresoline) 10 mg PRN Q4HRS PRN IVP ELEVATED BP, SEE COMMENTS Last administered on 07/24/16 13:01; Start 07/14/16 at 22:30; Stop 07/24/16 at 14 :38; Status DC Methylprednisolone Sodium Succinate (Solu-Medrol 125mg Vial) 125 mg DAILY IV Last administered on 07/15/16 08:55; Start 07/15/16 at 09:00; Stop 07/16/16 at 08:35; Status DC Insulin Aspart (Novolog) 0-9 UNITS TIDWMEALS SQ Last administered on 07/15/16 16:16; Start 07/15/16 at 08:00; Stop 07/16/16 at 07:16; Status DC Dextrose 12.5 gm PRN Q15MIN PRN IV SEE COMMENTS; Start 07/15/16 at 08:00; Stop 07/19/16 at 10:53; Status DC Insulin Detemir (Levemir) 20 units QHS SQ Last administered on 07/15/16 21:48 ; Start 07/15/16 at 21:00; Stop 07/16/16 at 07:16; Status DC Insulin Aspart (Novolog) 10 units TIDAC SQ ; Start 07/15/16 at 11:30; Stop 07/16 at 07:16; Status DC Sodium Polystyrene Sulfonate (Kayexalate) 30 gm 1X ONCE PO ; Start 07/15/16 at 08:00; Stop 07/15/16 at 08:08; Status DC Hydrochlorothiazide (Microzide) 12.5 mg DAILY PO ; Start 07/15/16 at 09:00; Stop 07/16/16 at 07:39; Status DC Isosorbide Mononitrate (Imdur) 120 mg DAILY PO ; Start 07/15/16 at 09:00; Stop 07/15/16 at 09:00; Status DC Diltiazem HCl (Cardizem 24hr Cd) 240 mg DAILY PO ; Start 07/15/16 at 09:00; Stop 07/16/16 at 07:39; Status DC Guaifenesin (Mucinex) 600 mg BID PO ; Start 07/15/16 at 09:00; Stop 07/16/16 at 07:39; Status DC Mupirocin (Bactroban) 1 margie BID NS Last administered on 07/26/16 20:46; Start 07/15/16 at 09:00 Isosorbide Mononitrate (Imdur) 120 mg DAILY PO ; Start 07/15/16 at 09:00; Stop 07/16/16 at 07:39; Status DC Sodium Bicarbonate 50 meq 1X ONCE IV Last administered on 07/15/16 15:22; Start 07/15/16 at 10:45; Stop 07/15/16 at 10:46; Status DC Sodium Bicarbonate 50 meq 50 meq STK-MED ONCE .ROUTE ; Start 07/15/16 at 10:34; Stop 07/15/16 at 10:35; Status DC Dopamine HCl/ Dextrose 250 ml @ As Directed STK-MED ONCE IV ; Start 07/15/16 at 10:37; Stop 07/15/16 at 10:38; Status DC Midazolam HCl (Versed) 5 mg STK-MED ONCE .ROUTE ; Start 07/15/16 at 10:41; Stop 07/15/16 at 10:42; Status DC Iohexol 100 ml 100 ml STK-MED ONCE .ROUTE ; Start 07/15/16 at 10:45; Stop at 10:46; Status DC Heparin Sodium/ Sodium Chloride 1,500 ml @ As Directed STK-MED ONCE .ROUTE ; Start 07/15/16 at 10:45; Stop 07/15/16 at 10:46; Status DC Lidocaine HCl 20 ml 20 ml STK-MED ONCE .ROUTE ; Start 07/15/16 at 10:45; Stop at 10:46; Status DC Dopamine HCl/ Dextrose 250 ml @ 16.255 mls/ hr CONT PRN IV SEE I/O RECORD Last administered on 07/16/16 23:10; Start 07/15/16 at 11:00; Stop 07/26/16 at 09:04; Status DC Sodium Chloride 1,000 ml @ 1,000 mls/hr 1X ONCE IV Last administered on 11:00; Start 07/15/16 at 11:00; Stop 07/15/16 at 11:59; Status DC Norepinephrine Bitartrate/Sodium Chloride (Levophed Vial/ Iv Sodium Chloride 0.9 % 250ml) 258 ml @ 0 mls/hr CONT PRN IV SEE I/O RECORD Last administered on 07/17 00:51; Start 07/15/16 at 11:00; Stop 07/26/16 at 09:04; Status DC Midazolam HCl (Versed) 5 mg STK-MED ONCE .ROUTE ; Start 07/15/16 at 10:54; Stop 07/15/16 at 10:55; Status DC Fentanyl Citrate (Fentanyl 2ml Vial) 100 mcg STK-MED ONCE .ROUTE ; Start at 11:02; Stop 07/15/16 at 11:03; Status DC Vecuronium [place] 10 mg 10 mg STK-MED ONCE IV ; Start 07/15/16 at 11:03; Stop 07/15/16 at 11:04; Status DC Midazolam HCl (Versed 100mg/ 100ml Premix) 100 ml @ As Directed STK-MED ONCE IV ; Start 07/15/16 at 11:03; Stop 07/15/16 at 11:04; Status DC Iohexol (Omnipaque 300 Mg/ml) 112 ml 1X ONCE IART Last administered on 11:56; Start 07/15/16 at 12:00; Stop 07/15/16 at 12:01; Status DC Lidocaine HCl 10 ml 1X ONCE IJ Last administered on 07/15/16 11:57; Start at 12:00; Stop 07/15/16 at 12:01; Status DC Heparin Sodium/ Sodium Chloride 1000 unit 1,000 unit 1X ONCE IART ; Start 07/15 at 12:00; Stop 07/15/16 at 12:01; Status DC Sodium Chloride/ Magnesium Sulfate/ Calcium Gluconate/ Multivitamins/ Chromium/ Copper/ Manganese/Seleni/ Zn/Total Parenteral Nutrition/Amino Acids/Dextrose ( Sodium Chloride/ Infuvite Adult/ Multitrace-5 Conc/ Tpn - Tpn Fluid/ Trophamine / Dextrose 70%-Water Iv Soln) 1,512 ml @ 63 mls/hr TPN CONT IV Last administered on 07/15/16 21:27; Start 07/15/16 at 22:00; Stop 07/16/16 at 21:59 ; Status DC Iohexol (Omnipaque 300 Mg/ml) 75 ml 1X ONCE IV Last administered on 07/15/16 13:43; Start 07/15/16 at 13:15; Stop 07/15/16 at 13:16; Status DC Info (Do NOT chart on this entry -- for MONITORING) 1 each PRN DAILY PRN MC SEE COMMENTS; Start 07/15/16 at 13:15; Stop 07/17/16 at 13:14; Status DC Heparin Sodium (Porcine) 7000 unit 7,000 unit 1X ONCE IV Last administered on 07/15/16 15:27; Start 07/15/16 at 14:45; Stop 07/15/16 at 14:46; Status DC Heparin Sodium/ Dextrose 500 ml @ 0 mls/hr CONT PRN IV SEE I/O RECORD Last administered on 07/17/16 18:41; Start 07/15/16 at 14:30; Stop 07/18/16 at 10:21 ; Status DC Heparin Sodium (Porcine) 2,600 unit PRN Q6HRS PRN IV FOR UFH LEVEL LESS THAN 0.2; Start 07/15/16 at 14:30; Stop 07/18/16 at 10:21; Status DC Heparin Sodium (Porcine) 1,300 unit PRN Q6HRS PRN IV FOR UFH LEVEL 0.2 - 0.29; Start 07/15/16 at 14:30; Stop 07/18/16 at 10:21; Status DC Warfarin Sodium (Coumadin Per Pharmacy) 1 each PRN DAILY PRN MC PER PROTOCOL; Start 07/15/16 at 14:30; Stop 07/15/16 at 14:30; Status DC Sodium Bicarbonate 50 meq 50 meq 1X ONCE IV Last administered on 07/15/16 16: 30; Start 07/15/16 at 16:30; Stop 07/15/16 at 16:34; Status DC Alteplase, Recombinant (Activase) 100 ml @ 50 mls/hr 1X ONCE IV Last administered on 07/15/16 17:30; Start 07/15/16 at 17:30; Stop 07/15/16 at 19:29 ; Status DC Fentanyl Citrate (Fentanyl 2ml Vial) 25 mcg PRN Q1HR PRN IV COMM; Start at 22:30; Stop 07/16/16 at 07:17; Status DC Fentanyl Citrate (Fentanyl 2ml Vial) 50 mcg PRN Q1HR PRN IV COMM Last administered on 07/16/16 05:30; Start 07/15/16 at 22:30; Stop 07/16/16 at 07:17 ; Status DC Scopolamine (Transderm-Scop) 1 patch Q3DAYS TD Last administered on 07/27/16 09 :48; Start 07/18/16 at 09:00 Scopolamine 1 patch 1 patch ONCE ONCE TD ; Start 07/15/16 at 23:30; Stop at 23:31; Status DC Sodium Chloride 1,000 ml @ 1,000 mls/hr 1X ONCE IV Last administered on 02:38; Start 07/16/16 at 01:00; Stop 07/16/16 at 01:59; Status DC Midazolam HCl 100 ml @ As Directed STK-MED ONCE IV ; Start 07/16/16 at 01:00; Stop 07/16/16 at 01:01; Status DC Midazolam HCl 100 ml @ 0 mls/hr CONT PRN IV SEE I/O RECORD Last administered on 07/19/16 07:52; Start 07/16/16 at 01:15; Stop 07/26/16 at 09:04; Status DC Vasopressin 40 unit/Dextrose 102 ml @ 6 mls/hr CONT PRN IV SEE I/O RECORD Last administered on 07/17/16 13:33; Start 07/16/16 at 05:00; Stop 07/24/16 at 14:38 ; Status DC Insulin Human Regular 150 unit/ Sodium Chloride 151.5 ml @ 0 mls/hr CONT PRN IV SEE I/O RECORD Last administered on 07/17/16 02:26; Start 07/16/16 at 05:00 ; Stop 07/17/16 at 10:10; Status DC Fentanyl Citrate (Fentanyl 600 Mcg/30 ml 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) 30 ml @ 0 mls/hr CONT PRN IV PROTOCOL Last administered on 07/25/16 17:57; Start 07/16/16 at 07:15; Stop 07/26 at 09:04; Status DC Vecuronium [place] (Norcuron Bolus) 10 mg STK-MED ONCE IV ; Start 07/15/16 at 11 :00; Stop 07/16/16 at 08:06; Status DC Fentanyl Citrate (Fentanyl 2ml Vial) 100 mcg STK-MED ONCE .ROUTE ; Start at 11:00; Stop 07/16/16 at 08:06; Status DC Midazolam HCl (Versed) 10 mg STK-MED ONCE .ROUTE ; Start 07/15/16 at 11:00; Stop 07/16/16 at 08:06; Status DC Dopamine HCl/ Dextrose 400 mg STK-MED ONCE IV ; Start 07/15/16 at 11:00; Stop at 08:06; Status DC Sodium Bicarbonate 50 meq STK-MED ONCE .ROUTE ; Start 07/15/16 at 11:00; Stop at 08:06; Status DC Hydrocortisone Sodium Succinate (Solu-Cortef) 100 mg Q8HRS IV Last administered on 07/19/16 05:50; Start 07/16/16 at 09:00; Stop 07/19/16 at 09:30 ; Status DC Sodium Polystyrene Sulfonate 30 gm 30 gm 1X ONCE PO Last administered on 08:41; Start 07/16/16 at 08:30; Stop 07/16/16 at 08:34; Status DC Albumin Human (Plasmanate) 500 ml @ 125 mls/hr PRN Q6HRS PRN IV for CVP < 10; MAP < 65 Last administered on 07/17/16 08:12; Start 07/16/16 at 08:30; Stop 07/24/16 at 14:38; Status DC Sodium Bicarbonate 50 meq 1X ONCE IV Last administered on 07/16/16 08:41; Start 07/16/16 at 08:45; Stop 07/16/16 at 08:46; Status DC Info (Anti-Coagulation Monitoring By Pharmacy) 1 each PRN DAILY PRN MC SEE COMMENTS; Start 07/16/16 at 08:45; Status Cancel Ipratropium [place] (Atrovent) 0.5 mg RTQID NEB Last administered on 07/27/16 07:49; Start 07/16/16 at 12:00 Lidocaine/Sodium Bicarbonate (Buffered Lidocaine 1%) 3 ml 1X ONCE IJ Last administered on 07/16/16 10:43; Start 07/16/16 at 09:15; Stop 07/16/16 at 09:16 ; Status DC Heparin Sodium/ Sodium Chloride 60 unit 1X ONCE IV Last administered on 10:44; Start 07/16/16 at 09:15; Stop 07/16/16 at 09:16; Status DC Heparin Sodium (Porcine) 2500 unit 2,500 unit 1X ONCE INT CAT Last administered on 07/16/16 10:44; Start 07/16/16 at 09:15; Stop 07/16/16 at 09:16 ; Status DC Sodium Chloride 40 meq/Sodium Acetate 40 meq/ Magnesium Sulfate 8 meq/Calcium Gluconate 5 meq/ Multivitamins 10 ml/Chromium/ Copper/Manganese/ Seleni/Zn 1 ml / Insulin Human Regular 10 unit/ Total Parenteral Nutrition/Amino Acids/Dextrose / Fat Emulsion Intravenous 1,512 ml @ 63 mls/hr TPN CONT IV Last administered on 07/16/16 21:53; Start 07/16/16 at 22:00; Stop 07/17/16 at 21:59 ; Status DC Pantoprazole Sodium 80 mg/ Sodium Chloride 100 ml @ 10 mls/hr Q10H IV Last administered on 07/21/16 10:10; Start 07/17/16 at 06:45; Stop 07/21/16 at 12:21 ; Status DC Sodium Acetate/ Potassium Acetate/ Magnesium Sulfate/ Calcium Gluconate/ Multivitamins/ Chromium/Copper/ Manganese/Seleni/ Zn/Insulin Human Regular/ Total Parenteral Nutrition/Amino Acids/Dextrose/ Fat Emulsion Intravenous ( Calcium Gluconate/ Infuvite Adult/ Multitrace-5 Conc/ Novolin R Vi... 1,512 ml @ 63 mls/hr TPN CONT IV Last administered on 07/17/16 21:49; Start 07/17/16 at 22:00; Stop 07/18/16 at 21:59; Status DC Insulin Detemir (Levemir) 25 units BID SQ Last administered on 07/17/16 20:51 ; Start 07/17/16 at 10:30; Stop 07/18/16 at 08:12; Status DC Insulin Aspart (Novolog) 0-9 UNITS TIDWMEALS SQ Last administered on 07/18/16 10:03; Start 07/17/16 at 12:00; Stop 07/18/16 at 11:55; Status DC Dextrose 12.5 gm PRN Q15MIN PRN IV SEE COMMENTS; Start 07/17/16 at 10:15; Status UNV Iohexol (Omnipaque 300 Mg/ml) 100 ml STK-MED ONCE .ROUTE ; Start 07/17/16 at 10: 45; Stop 07/17/16 at 10:46; Status DC Lidocaine/Sodium Bicarbonate 20 ml 20 ml STK-MED ONCE IJ ; Start 07/17/16 at 10: 45; Stop 07/17/16 at 10:46; Status DC Heparin Sodium/ Sodium Chloride 500 ml @ As Directed STK-MED ONCE .ROUTE ; Start 07/17/16 at 10:46; Stop 07/17/16 at 10:47; Status DC Heparin Sodium/ Sodium Chloride 1,000 unit 1X ONCE IART Last administered on 11:27; Start 07/17/16 at 11:15; Stop 07/17/16 at 11:26; Status DC Lidocaine/Sodium Bicarbonate (Buffered Lidocaine 1%) 3 ml 1X ONCE IJ Last administered on 07/17/16 11:15; Start 07/17/16 at 11:15; Stop 07/17/16 at 11:26 ; Status DC Iohexol (Omnipaque 300 Mg/ml) 40 ml 1X ONCE IART Last administered on 11:26; Start 07/17/16 at 11:15; Stop 07/17/16 at 11:26; Status DC Info (Do NOT chart on this entry -- for MONITORING) 1 each PRN DAILY PRN MC SEE COMMENTS; Start 07/17/16 at 11:30; Stop 07/19/16 at 11:29; Status DC Calcium Chloride 2,000 mg STK-MED ONCE IV ; Start 07/16/16 at 13:02; Stop at 13:03; Status DC Epinephrine HCl 4 mg STK-MED ONCE .ROUTE ; Start 07/16/16 at 13:02; Stop at 13:03; Status DC Furosemide 40 mg 40 mg 1X ONCE IVP Last administered on 07/17/16 16:45; Start 07/17/16 at 16:45; Stop 07/17/16 at 16:47; Status DC Propofol (Diprivan) 100 ml @ As Directed STK-MED ONCE IV ; Start 07/17/16 at 16 :36; Stop 07/17/16 at 16:37; Status DC Insulin Detemir (Levemir) 35 units BID SQ Last administered on 07/18/16 10:00 ; Start 07/18/16 at 09:00; Stop 07/18/16 at 11:55; Status DC Insulin Aspart (Novolog) 10 units Q6HRS SQ ; Start 07/18/16 at 12:00; Stop 07/18 at 12:00; Status DC Insulin Aspart 20 units 20 units 1X ONCE SQ Last administered on 07/18/16 10: 02; Start 07/18/16 at 08:15; Stop 07/18/16 at 11:56; Status DC Sodium Acetate/ Potassium Acetate/ Magnesium Sulfate/ Calcium Gluconate/ Multivitamins/ Chromium/Copper/ Manganese/Seleni/ Zn/Insulin Human Regular/ Total Parenteral Nutrition/Amino Acids/Dextrose/ Fat Emulsion Intravenous ( Calcium Gluconate/ Infuvite Adult/ Multitrace-5 Conc/ Novolin R Vi... 1,512 ml @ 63 mls/hr TPN CONT IV Last administered on 07/18/16 22:03; Start 07/18/16 at 22:00; Stop 07/19/16 at 21:59; Status DC Atropine Sulfate 0.5 mg 0.5 mg STK-MED ONCE .ROUTE ; Start 07/18/16 at 09:43; Stop 07/18/16 at 09:44; Status DC Insulin Human Regular/Sodium Chloride (Novolin R Vial/ Iv Normal Saline 150ml) 151.5 ml @ 0 mls/hr CONT PRN IV SEE I/O RECORD Last administered on 07/18/16 13:54; Start 07/18/16 at 11:45; Stop 07/19/16 at 10:27; Status DC Dextrose 12.5 gm 12.5 gm PRN Q15MIN PRN IV LOW BLOOD SUGAR; Start 07/18/16 at 11:45; Stop 07/19/16 at 10:53; Status DC Potassium Chloride (KCl Premix 20meq) 50 ml @ 25 mls/hr Q2H IV Last administered on 07/19/16 11:09; Start 07/19/16 at 09:30; Stop 07/19/16 at 13:29 ; Status DC Propofol (Diprivan) 1,000 mg STK-MED ONCE IV ; Start 07/17/16 at 16:36; Stop at 08:22; Status DC Atropine Sulfate 1 mg STK-MED ONCE .ROUTE ; Start 07/18/16 at 09:43; Stop at 08:53; Status DC Hydrocortisone Sodium Succinate (Solu-Cortef) 50 mg Q8HRS IV Last administered on 07/24/16 05:27; Start 07/19/16 at 14:00; Stop 07/24/16 at 14:38; Status DC Heparin Sodium (Porcine) 7400 unit 7,400 unit 1X ONCE IV Last administered on 07/19/16 10:03; Start 07/19/16 at 09:45; Stop 07/19/16 at 09:53; Status DC Heparin Sodium/ Dextrose 500 ml @ 0 mls/hr CONT PRN IV SEE I/O RECORD Last administered on 07/25/16 01:58; Start 07/19/16 at 09:45; Stop 07/25/16 at 13:12; Status DC Heparin Sodium (Porcine) 2,800 unit PRN Q6HRS PRN IV FOR UFH LEVEL LESS THAN 0.2; Start 07/19/16 at 09:45; Stop 07/23/16 at 08:12; Status DC Heparin Sodium (Porcine) 1,400 unit PRN Q6HRS PRN IV FOR UFH LEVEL 0.2 - 0.29 Last administered on 07/20/16 12:06; Start 07/19/16 at 09:45; Stop 07/23/16 at 08:12; Status DC Warfarin Sodium (Coumadin Per Pharmacy) 1 each PRN DAILY PRN MC PER PROTOCOL Last administered on 07/26/16 14:48; Start 07/19/16 at 09:45; Stop 07/26/16 at 15 :34; Status DC Insulin Aspart (Novolog) 0-5 UNITS TIDWMEALS SQ Last administered on 07/19/16 12:02; Start 07/19/16 at 12:00; Stop 07/19/16 at 16:45; Status DC Dextrose 12.5 gm 12.5 gm PRN Q15MIN PRN IV SEE COMMENTS; Start 07/19/16 at 10: 30; Stop 07/24/16 at 13:40; Status DC Potassium Acetate/ Magnesium Sulfate/ Calcium Gluconate/ Multivitamins/ Chromium /Copper/ Manganese/Seleni/ Zn/Insulin Human Regular/Total Parenteral Nutrition/ Amino Acids/Dextrose/ Fat Emulsion Intravenous (Calcium Gluconate/ Infuvite Adult/ Multitrace-5 Conc/ Novolin R Vial/ Tpn - Tpn Flu... 1,200 ml @ 50 mls/ hr TPN CONT IV ; Start 07/19/16 at 22:00; Stop 07/19/16 at 22:00; Status DC Insulin Aspart (Novolog) 0-5 UNITS Q6HRS SQ Last administered on 07/21/16 12: 04; Start 07/19/16 at 18:00; Stop 07/21/16 at 12:34; Status DC Warfarin Sodium (Coumadin) 4 mg 1X WARF ONCE PO Last administered on 17:26; Start 07/19/16 at 17:02; Stop 07/19/16 at 17:03; Status DC Fentanyl Citrate (Fentanyl 2ml Vial) 50 mcg PRN Q2HR PRN IV PAIN Last administered on 07/22/16 03:15; Start 07/20/16 at 02:45; Stop 07/22/16 at 04:45 ; Status DC Warfarin Sodium (Coumadin) 5 mg 1X WARF ONCE PO Last administered on 17:09; Start 07/20/16 at 16:00; Stop 07/20/16 at 16:01; Status DC Midazolam HCl 1 mg 1 mg PRN Q1HR PRN IV sedation on vent; Start 07/20/16 at 11: 15; Stop 07/22/16 at 04:46; Status DC Sodium Chloride (Iv Sodium Chloride 0.9% 1000ml Bag) 1,000 ml @ 75 mls/hr [id number] IV Last administered on 07/23/16 05:31; Start 07/20/16 at 11:15; Stop 07/23/16 at 11:50; Status DC Midazolam HCl (Versed) 2 mg PRN Q1HR PRN IV sedation on vent; Start 07/20/16 at 11:15; Stop 07/22/16 at 04:47; Status DC Midazolam HCl (Versed) 3 mg PRN Q1HR PRN IV sedation on vent; Start 07/20/16 at 11:15; Stop 07/22/16 at 04:47; Status DC Midazolam HCl (Versed) 4 mg PRN Q1HR PRN IV sedation on vent Last administered on 07/22/16 04:32; Start 07/20/16 at 11:15; Stop 07/22/16 at 04:47; Status DC Insulin Detemir (Levemir) 15 units QHS SQ Last administered on 07/20/16 20:47 ; Start 07/20/16 at 21:00; Stop 07/21/16 at 12:34; Status DC Warfarin Sodium (Coumadin) 5 mg 1X WARF ONCE PO Last administered on 15:37; Start 07/21/16 at 16:00; Stop 07/21/16 at 16:01; Status DC Pantoprazole Sodium (Protonix Vial) 40 mg DAILYAC IVP Last administered on 07/22 07:41; Start 07/22/16 at 07:30; Stop 07/23/16 at 04:47; Status DC Insulin Detemir (Levemir) 25 units QHS SQ Last administered on 07/25/16 21:16; Start 07/21/16 at 21:00; Stop 07/26/16 at 08:09; Status DC Docusate Sodium (Colace) 100 mg BID PO Last administered on 07/25/16 21:11; Start 07/21/16 at 21:00 Insulin Aspart (Novolog) 0-9 UNITS Q6HRS SQ Last administered on 07/27/16 05:52 ; Start 07/21/16 at 13:00 Fentanyl Citrate (Fentanyl 2ml Vial) 100 mcg STK-MED ONCE .ROUTE ; Start at 22:18; Stop 07/21/16 at 22:19; Status DC Midazolam HCl (Versed) 2 mg STK-MED ONCE .ROUTE ; Start 07/21/16 at 23:45; Stop 07/21/16 at 23:46; Status DC Fentanyl Citrate (Fentanyl 2ml Vial) 100 mcg STK-MED ONCE .ROUTE ; Start at 00:36; Stop 07/22/16 at 00:37; Status DC Midazolam HCl (Versed) 2 mg STK-MED ONCE .ROUTE ; Start 07/22/16 at 00:57; Stop 07/22/16 at 00:58; Status DC Midazolam HCl (Versed) 2 mg STK-MED ONCE .ROUTE ; Start 07/22/16 at 02:06; Stop 07/22/16 at 02:07; Status DC Midazolam HCl (Versed) 2 mg STK-MED ONCE .ROUTE ; Start 07/22/16 at 03:13; Stop 07/22/16 at 03:14; Status DC Fentanyl Citrate (Fentanyl 2ml Vial) 100 mcg STK-MED ONCE .ROUTE ; Start at 03:14; Stop 07/22/16 at 03:15; Status DC Midazolam HCl (Versed) 2 mg STK-MED ONCE .ROUTE ; Start 07/22/16 at 04:29; Stop 07/22/16 at 04:30; Status DC Fentanyl Citrate (Fentanyl 2ml Vial) 50 mcg PRN Q2HR PRN IV SEVERE PAIN Last administered on 07/24/16 07:27; Start 07/22/16 at 04:45 Midazolam HCl (Versed) 1 mg PRN Q1HR PRN IV sedation on vent; Start 07/22/16 at 04:46 Midazolam HCl (Versed) 2 mg PRN Q1HR PRN IV sedation on vent Last administered on 07/22/16 07:42; Start 07/22/16 at 04:47 Midazolam HCl (Versed) 3 mg PRN Q1HR PRN IV sedation on vent; Start 07/22/16 at 04:47 Midazolam HCl (Versed) 4 mg PRN Q1HR PRN IV sedation on vent Last administered on 07/22/16 05:33; Start 07/22/16 at 04:47 Warfarin Sodium (Coumadin) 7.5 mg 1X WARF ONCE PO Last administered on 17:38; Start 07/22/16 at 16:00; Stop 07/22/16 at 16:01; Status DC Metoprolol Tartrate (Lopressor) 5 mg Q6HRS IVP Last administered on 07/26/16 06 :09; Start 07/22/16 at 12:30; Stop 07/26/16 at 09:08; Status DC Atorvastatin Calcium (Lipitor) 40 mg STK-MED ONCE .ROUTE ; Start 07/22/16 at 20: 37; Stop 07/22/16 at 20:38; Status DC Diphenhydramine HCl (Benadryl) 25 mg PRN Q6HRS PRN IVP ANAPHYLAXIS; Start 07/23 at 04:47 Pantoprazole Sodium (Protonix Vial) 40 mg DAILYAC IVP Last administered on 07:46; Start 07/23/16 at 04:47 Heparin Sodium (Porcine) 3,100 unit PRN Q6HRS PRN IV FOR UFH LEVEL LESS THAN 0.2; Start 07/23/16 at 08:15; Stop 07/24/16 at 13:37; Status DC Heparin Sodium (Porcine) 1,600 unit PRN Q6HRS PRN IV FOR UFH LEVEL 0.2 - 0.29 Last administered on 07/23/16 08:26; Start 07/23/16 at 08:15; Stop 07/24/16 at 13:39; Status DC Warfarin Sodium 7.5 mg 7.5 mg 1X WARF ONCE PO Last administered on 07/23/16 16:53; Start 07/23/16 at 16:00; Stop 07/23/16 at 16:01; Status DC Potassium Chloride 50 ml @ 50 mls/hr Q1H IV Last administered on 07/23/16 13: 39; Start 07/23/16 at 11:00; Stop 07/23/16 at 12:59; Status DC Amino Acids/ Electrolytes/ Dextrose (Clinimix E 4.25%-5% Solution) 1,000 ml @ 80 mls/hr [id number] IV Last administered on 07/27/16 04:34; Start 07/23/16 at 12: 00 Atorvastatin Calcium (Lipitor) 40 mg STK-MED ONCE .ROUTE ; Start 07/23/16 at 20: 33; Stop 07/23/16 at 20:34; Status DC Warfarin Sodium (Coumadin) 5 mg 1X WARF ONCE PO ; Start 07/24/16 at 16:00; Stop 07/24/16 at 16:01; Status DC Heparin Sodium (Porcine) (Heparin Sodium) 3,100 unit PRN Q6HRS PRN IV FOR UFH LEVEL LESS THAN 0.2; Start 07/24/16 at 13:37; Stop 07/25/16 at 13:12; Status DC Heparin Sodium (Porcine) (Heparin Sodium) 1,600 unit PRN Q6HRS PRN IV FOR UFH LEVEL 0.2 - 0.29; Start 07/24/16 at 13:39; Status Cancel Atorvastatin Calcium (Lipitor) 40 mg HS PO Last administered on 07/25/16 21:11 ; Start 07/24/16 at 21:00 Dextrose (Dextrose 50%-Water Syringe) 12.5 gm PRN Q15MIN PRN IV SEE COMMENTS Last administered on 07/26/16 07:42; Start 07/24/16 at 13:40; Stop 07/26/16 at 09: 07; Status DC Hydralazine HCl (Apresoline) 20 mg PRN Q4HRS PRN IVP ELEVATED BP, SEE COMMENTS Last administered on 07/27/16 07:47; Start 07/24/16 at 14:45 Hydrocortisone Sodium Succinate (Solu-Cortef) 50 mg BID IV Last administered on 07/25/16 21:15; Start 07/24/16 at 21:00; Stop 07/26/16 at 09:07; Status DC Clonidine HCl 1 patch 1 patch WEEKLY TD Last administered on 07/24/16 19:05; Start 07/24/16 at 15:00; Stop 07/26/16 at 09:07; Status DC Nicardipine HCl/ Sodium Chloride (Cardene/Iv Sodium Chloride 0.9% 250ml) 270 ml @ 0 mls/hr CONT PRN IV SEE I/O RECORD Last administered on 07/25/16 22:46; Start 07/25/16 at 08:45; Stop 07/26/16 at 09:04; Status DC Warfarin Sodium (Coumadin) 5 mg 1X WARF ONCE PO Last administered on 07/25/16 15:09; Start 07/25/16 at 16:00; Stop 07/25/16 at 16:01; Status DC Lorazepam (Ativan) 1 mg PRN Q4HRS PRN IV ANXIETY / AGITATION Last administered on 07/26/16 11:55; Start 07/26/16 at 01:30 Clonidine HCl (Catapres Tts-2) 2 patch WEEKLY TD Last administered on 07/26/16 10:34; Start 07/26/16 at 10:00 Hydrocortisone Sodium Succinate 25 mg 25 mg BID IV Last administered on 09:48; Start 07/26/16 at 09:00 Potassium Chloride (KCl Premix 20meq) 50 ml @ 50 mls/hr Q1H IV Last administered on 07/26/16 11:55; Start 07/26/16 at 10:00; Stop 07/26/16 at 11:59; Status DC Dextrose (Dextrose 50%-Water Syringe) 25 gm STK-MED ONCE IV ; Start 07/26/16 at 13:21; Stop 07/26/16 at 13:22; Status DC Dextrose (Dextrose 50%-Water Syringe) 12.5 gm PRN Q15MIN PRN IV SEE COMMENTS Last administered on 07/26/16 13:27; Start 07/26/16 at 13:30 Warfarin Sodium (Coumadin) 5 mg 1X WARF ONCE PO ; Start 07/26/16 at 16:00; Stop 07/26/16 at 16:01; Status Cancel Methylprednisolone Sodium Succinate (Solu-Medrol 125mg Vial) 125 mg 1X ONCE IV Last administered on 07/26/16 15:11; Start 07/26/16 at 15:30; Stop 07/26/16 at 15:31; Status DC Diphenhydramine HCl (Benadryl) 50 mg 1X ONCE IVP ; Start 07/26/16 at 15:30; Stop 07/26/16 at 15:30; Status DC Diphenhydramine HCl (Benadryl) 25 mg PRN Q6HRS PRN IVP ITCHING Last administered on 07/26/16 15:13; Start 07/26/16 at 15:00 Alteplase, Recombinant (Cathflo) 2 mg 1X ONCE INT CAT Last administered on 07/26 16:15; Start 07/26/16 at 15:45; Stop 07/26/16 at 15:46; Status DC Enoxaparin Sodium (Lovenox 100mg Syringe) 100 mg Q12HR SQ Last administered on 07/27/16 09:48; Start 07/26/16 at 21:00 Active Scripts Active Levemir Flextouch (Insulin Detemir) 100 Unit/1 Ml Insuln.pen 20 Units SQ QHS 30 Days Novolog Flexpen (Insulin Aspart) 100 Unit/1 Ml Insuln.pen 10 Units SQ TIDAC 30 Days Reported Advair 100-50 Diskus (Fluticasone/Salmeterol) 1 Each Disk.w.dev 1 Puff IH BID Spiriva Respimat (Tiotropium [place]) 4 Gm Mist.inhal 2.5 Gm IH DAILY Symbicort 160-4.5 Mcg Inhaler (Budesonide/Formoterol Fumarate) 10.2 Gm Hfa.aer.ad 2 Puff IH BID Atorvastatin Calcium 20 Mg Tablet 20 Mg PO HS Lisinopril-Hctz 10-12.5 Mg Tab (Lisinopril/Hydrochlorothiazide) 1 Each Tablet 1 Tab PO DAILY Isosorbide Mononitrate Er (Isosorbide Mononitrate) 120 Mg Tab.er.24h 120 Mg PO DAILY Novolin N (Nph, Human Insulin Isophane) 100 Unit/1 Ml Vial 0 SQ Promethazine-Codeine Syrup (Promethazine Hcl/Codeine) 118 Ml Syrup 5 Ml PO Q4- 6HRS Diltiazem 24HR Cd (Diltiazem Hcl) 240 Mg Cap.er.24h 240 Mg PO DAILY NITROGLYCERIN SubLingual (Nitroglycerin) 0.4 Mg Tab.subl 0.4 Mg SL PRN Q5MIN PRN Atorvastatin Calcium 40 Mg Tablet 40 Mg PO HS Vitals/I & O Vital Sign - Last 24 Hours 07/26/16 07/26/16 07/26/16 07/26/16 10:00 10:33 10:58 11:00 Temp 98.0 98.0 Pulse 64 60 76 Resp 22 26 B/P 183/89 183/89 135/59 Pulse Ox 100 98 99 O2 Delivery Nasal Cannula Nasal Cannula Nasal Cannula O2 Flow Rate 2.0 2.0 2.0 07/26/16 07/26/16 07/26/16 07/26/16 12:00 13:00 14:00 15:00 Pulse 76 66 72 Resp 25 24 25 B/P 147/79 145/81 163/93 Pulse Ox 92 99 100 O2 Delivery Nasal Cannula Nasal Cannula Nasal Cannula Nasal Cannula O2 Flow Rate 2.0 2.0 2.0 2.0 07/26/16 07/26/16 07/26/16 07/26/16 15:34 16:00 16:00 17:00 Temp 98.1 98.1 Pulse 70 64 Resp 25 23 B/P 173/96 169/95 Pulse Ox 100 100 99 O2 Delivery Nasal Cannula Nasal Cannula Nasal Cannula Nasal Cannula O2 Flow Rate 2.0 2.0 2.0 2.0 07/26/16 07/26/16 07/26/16 07/26/16 18:00 19:30 19:48 20:00 Pulse 68 72 Resp 23 28 B/P 169/95 175/93 Pulse Ox 97 99 99 O2 Delivery Nasal Cannula Nasal Cannula Nasal Cannula Nasal Cannula O2 Flow Rate 2.0 1.5 1.5 1.5 07/26/16 07/26/16 07/26/16 07/26/16 20:30 20:45 20:52 21:00 Temp 98.9 98.9 Pulse 73 68 66 73 Resp 25 B/P 182/97 184/93 184/93 182/97 Pulse Ox 100 100 100 O2 Delivery Nasal Cannula Nasal Cannula Nasal Cannula O2 Flow Rate 1.5 1.5 1.5 07/26/16 07/26/16 07/26/16 07/26/16 21:15 21:30 22:00 23:00 Pulse 80 79 77 72 Resp 24 B/P 169/86 144/73 132/65 140/63 Pulse Ox 100 100 99 100 O2 Delivery Nasal Cannula Nasal Cannula Nasal Cannula Nasal Cannula O2 Flow Rate 1.5 1.5 1.5 1.5 07/26/16 07/26/16 07/27/16 07/27/16 23:59 23:59 01:00 02:00 Temp 98.5 98.5 Pulse 91 80 74 Resp 23 B/P 157/84 173/90 163/84 Pulse Ox 99 100 100 O2 Delivery Nasal Cannula Nasal Cannula Nasal Cannula Nasal Cannula O2 Flow Rate 1.5 1.5 1.5 1.5 07/27/16 07/27/16 07/27/16 07/27/16 03:00 04:00 04:00 04:12 Temp 98.4 98.4 Pulse 80 87 84 Resp 23 B/P 173/89 185/90 185/90 Pulse Ox 100 96 O2 Delivery Nasal Cannula Nasal Cannula Nasal Cannula O2 Flow Rate 1.5 1.5 1.5 07/27/16 07/27/16 07/27/16 07/27/16 04:30 05:00 06:00 06:30 Pulse 92 96 98 95 Resp 32 24 B/P 163/81 163/81 179/108 166/96 Pulse Ox 96 97 97 97 O2 Delivery Nasal Cannula Room Air Room Air Room Air O2 Flow Rate 1.5 07/27/16 07/27/16 07/27/16 07:47 08:00 08:10 Pulse 81 B/P 186/96 Pulse Ox 97 O2 Delivery Room Air Room Air Intake and Output 07/26/16 07/26/16 07/27/16 14:59 22:59 06:59 Intake Total 1020 ml Output Total 375 ml 620 ml 265 ml Balance -375 ml -620 ml 755 ml BALA BRYANT MD Jul 27, 2016 09:58
--- NOTE | 2016-07-27 10:05 | PDOC ---
SUBJECTIVE ROS ^Na DOing same to little better More alert today, Denies NVD, SOB, CP per se OBJECTIVE Vital Signs Vital Signs Date Time Temp Pulse Resp B/P Pulse Ox O2 Delivery O2 Flow Rate FiO2 07/27/16 08:10 97 Room Air 07/27/16 07:47 81 186/96 07/27/16 06:30 24 07/27/16 04:30 1.5 07/27/16 04:00 98.4 98.4 I & 0 Intake and Output 07/27/16 06:59 Intake Total 1020 ml Output Total 1260 ml Balance -240 ml IV Total 1020 ml Output Urine Total 1260 ml PHYSICAL EXAM Physical Exam General Appearance: Awake: but not fully Alert Oriented x 0 Neck: No JVD or JVP Chest: CTA Evan Heart: S1 S2 Abdomen - Soft NTND Extremities - No Edema DIAGNOSIS/ASSESSMENT ^Na - ct Hypotonic fluids - change PPN to D5W since Na remains ^ed low K - Supplement as needed HTN - Catapress #2 x patches - doubt that this is his soucre of "angioedema" Toungue swelling. May need to be back on Cardene gtt Edema - start Lasix D/w Dr Lira COMMENT/RELEVANT DATA Meds Current Medications Medications (Trade) Dose Ordered Sig/Ann Marie Start Time Stop Time Status Last Admin Dose Admin Albumin Human (Plasmanate) 500 ml @ 125 mls/hr PRN Q6HRS PRN 07/16/16 08:30 07/24/16 14:38 DC 07/17/16 08:12 125 MLS/HR Albuterol Sulfate (Ventolin Neb Soln) 2.5 mg PRN Q2HR PRN 07/12/16 16:00 07/25/16 23:44 2.5 MG Albuterol/ Ipratropium (Duoneb) 3 ml QID 07/12/16 17:00 UNV Alteplase, Recombinant (Activase) 100 ml @ 50 mls/hr 1X ONCE 07/15/16 17:30 07/15/16 19:29 DC 07/15/16 17:30 50 MLS/HR Alteplase, Recombinant (Cathflo) 2 mg 1X ONCE 07/26/16 15:45 07/26/16 15:46 DC 07/26/16 16:15 2 MG Amino Acids/ Electrolytes/ Dextrose (Clinimix E 4.25%-5% Solution) 1,000 ml @ 80 mls/hr [id number] 07/23/16 12:00 07/27/16 04:34 80 MLS/HR Atorvastatin Calcium (Lipitor) 40 mg HS 07/24/16 21:00 07/25/16 21:11 40 MG Atropine Sulfate 1 mg STK-MED ONCE 07/18/16 09:43 07/19/16 08:53 DC Atropine Sulfate 0.5 mg 0.5 mg STK-MED ONCE 07/18/16 09:43 07/18/16 09:44 DC Benzocaine (Hurricaine One) 1 spray STK-MED ONCE 07/12/16 12:00 07/13/16 16:00 DC Budesonide (Pulmicort) 0.5 mg RTBID 07/12/16 20:00 07/13/16 11:27 DC 07/13/16 07:30 0.5 MG Calcium Chloride 2,000 mg STK-MED ONCE 07/16/16 13:02 07/17/16 13:03 DC Ceftriaxone Sodium/Sodium Chloride (Rocephin/Iv Sodium Chloride 0.9% 50ml) 50 ml @ 100 mls/hr Q24H 07/14/16 12:00 07/20/16 12:29 DC 07/19/16 12:25 100 MLS/HR Chlorhexidine Gluconate (Peridex) 15 ml BID 07/13/16 09:00 07/23/16 09:42 DC 07/23/16 08:22 15 ML Clonidine HCl (Catapres Tts-2) 2 patch WEEKLY 07/26/16 10:00 07/26/16 10:34 2 PATCH Clonidine HCl 1 patch 1 patch WEEKLY 07/24/16 15:00 07/26/16 09:07 DC 07/24/16 19:05 1 PATCH Dextrose (Dextrose 50%-Water Syringe) 12.5 gm PRN Q15MIN PRN 07/26/16 13:30 07/26/16 13:27 25 GM Dextrose 12.5 gm 12.5 gm PRN Q15MIN PRN 07/19/16 10:30 07/24/16 13:40 DC Diltiazem HCl (Cardizem 24hr ) 240 mg DAILY 07/15/16 09:00 07/16/16 07:39 DC Diphenhydramine HCl (Benadryl) 25 mg PRN Q6HRS PRN 07/26/16 15:00 07/26/16 15:13 25 MG Docusate Sodium (Colace) 100 mg BID 07/21/16 21:00 07/25/16 21:11 100 MG Dopamine HCl/ Dextrose 400 mg STK-MED ONCE 07/15/16 11:00 07/16/16 08:06 DC Enoxaparin Sodium (Lovenox 100mg Syringe) 100 mg Q12HR 07/26/16 21:00 07/27/16 09:48 100 MG Enoxaparin Sodium (Lovenox 40mg Syringe) 40 mg DAILY 07/12/16 16:30 07/15/16 14:28 DC 07/15/16 08:54 40 MG Epinephrine HCl 4 mg STK-MED ONCE 07/16/16 13:02 07/17/16 13:03 DC Fentanyl Citrate (Fentanyl 2ml Vial) 50 mcg PRN Q2HR PRN 07/22/16 04:45 07/24/16 07:27 50 MCG Fentanyl Citrate (Fentanyl 600 Mcg/30 ml [employer]) 30 ml @ 0 mls/hr CONT PRN 07/16/16 07:15 07/26/16 09:04 DC 07/25/16 17:57 2.5 MLS/HR Furosemide (Lasix) 40 mg 1X ONCE 07/17/16 16:45 07/17/16 16:47 DC 07/17/16 16:45 40 MG Glycopyrrolate (Robinul) 1 mg STK-MED ONCE 07/12/16 15:00 07/13/16 08:54 DC Guaifenesin (Mucinex) 600 mg BID 07/15/16 09:00 07/16/16 07:39 DC Heparin Sodium (Porcine) (Heparin Sodium) 1,600 unit PRN Q6HRS PRN 07/24/16 13:39 Cancel Heparin Sodium (Porcine) 2500 unit 2,500 unit 1X ONCE 07/16/16 09:15 07/16/16 09:16 DC 07/16/16 10:44 2,500 UNIT Heparin Sodium (Porcine) 7400 unit 7,400 unit 1X ONCE 07/19/16 09:45 07/19/16 09:53 DC 07/19/16 10:03 7,400 UNIT Heparin Sodium/ Dextrose 500 ml @ 0 mls/hr CONT PRN 07/19/16 09:45 07/25/16 13:12 DC 07/25/16 01:58 25.2 MLS/HR Heparin Sodium/ Sodium Chloride 1,000 unit 1X ONCE 07/17/16 11:15 07/17/16 11:26 DC 07/17/16 11:27 1,000 UNIT Heparin Sodium/ Sodium Chloride 1000 unit 1,000 unit 1X ONCE 07/15/16 12:00 07/15/16 12:01 DC Hydralazine HCl (Apresoline) 20 mg PRN Q4HRS PRN 07/24/16 14:45 07/27/16 07:47 20 MG Hydrochlorothiazide (Microzide) 12.5 mg DAILY 07/15/16 09:00 07/16/16 07:39 DC Hydrocortisone Sodium Succinate (Solu-Cortef) 50 mg BID 07/24/16 21:00 07/26/16 09:07 DC 07/25/16 21:15 50 MG Hydrocortisone Sodium Succinate 25 mg 25 mg BID 07/26/16 09:00 07/27/16 09:48 25 MG Info (Anti-Coagulation Monitoring By Pharmacy) 1 each PRN DAILY PRN 07/16/16 08:45 Cancel Info (Do NOT chart on this entry -- for MONITORING) 1 each PRN DAILY PRN 07/17/16 11:30 07/19/16 11:29 DC Info 1 each 1 each PRN DAILY PRN 07/14/16 09:30 07/19/16 16:30 DC 07/18/16 08:27 1 EACH Insulin Aspart (Novolog) 0-9 UNITS Q6HRS 07/21/16 13:00 07/27/16 05:52 3 UNITS Insulin Aspart 10 units 10 units 1X ONCE 07/12/16 19:45 07/12/16 19:46 DC 07/12/16 19:41 10 UNITS Insulin Aspart 20 units 20 units 1X ONCE 07/18/16 08:15 07/18/16 11:56 DC 07/18/16 10:02 20 UNITS Insulin Detemir (Levemir) 25 units QHS 07/21/16 21:00 07/26/16 08:09 DC 07/25/16 21:16 25 UNITS Insulin Human Regular (Novolin R Vial) 10 unit 1X ONCE 07/12/16 13:15 07/12/16 13:16 DC 07/12/16 13:16 10 UNIT Insulin Human Regular 150 unit/ Sodium Chloride 151.5 ml @ 0 mls/hr CONT PRN 07/16/16 05:00 07/17/16 10:10 DC 07/17/16 02:26 5.15 MLS/HR Insulin Human Regular/Sodium Chloride (Novolin R Vial/ Iv Normal Saline 150ml) 151.5 ml @ 0 mls/hr CONT PRN 07/18/16 11:45 07/19/16 10:27 DC 07/18/16 13:54 13.3 MLS/HR Iohexol (Omnipaque 300 Mg/ml) 40 ml 1X ONCE 07/17/16 11:15 07/17/16 11:26 DC 07/17/16 11:26 40 ML Ipratropium [place] (Atrovent) 0.5 mg RTQID 07/16/16 12:00 07/27/16 07:49 0.5 MG Isosorbide Mononitrate (Imdur) 120 mg DAILY 07/15/16 09:00 07/16/16 07:39 DC Ketamine HCl 500 mg STK-MED ONCE 07/12/16 18:30 07/13/16 12:05 DC Lidocaine HCl 10 ml 1X ONCE 07/15/16 12:00 07/15/16 12:01 DC 07/15/16 11:57 10 ML Lidocaine HCl (Xylocaine 2% Topical 5gm Tube) 5 margie STK-MED ONCE 07/12/16 12:00 07/13/16 16:00 DC Lidocaine HCl 20 ml 20 ml STK-MED ONCE 07/15/16 10:45 07/15/16 10:46 DC Lidocaine/Sodium Bicarbonate (Buffered Lidocaine 1%) 3 ml 1X ONCE 07/17/16 11:15 07/17/16 11:26 DC 07/17/16 11:15 3 ML Lorazepam (Ativan) 1 mg PRN Q4HRS PRN 07/26/16 01:30 07/26/16 11:55 1 MG Magnesium Sulfate/ Dextrose 50 ml @ 25 mls/hr PRN DAILY PRN 07/14/16 11:15 07/15/16 07:58 DC Methylprednisolone Sodium Succinate (Solu-Medrol 40mg Vial) 60 mg DAILY 07/13/16 09:00 07/13/16 09:00 DC Methylprednisolone Sodium Succinate (Solu-Medrol 125mg Vial) 125 mg 1X ONCE 07/26/16 15:30 07/26/16 15:31 DC 07/26/16 15:11 125 MG Metoprolol Tartrate (Lopressor) 5 mg Q6HRS 07/22/16 12:30 07/26/16 09:08 DC 07/26/16 06:09 5 MG Midazolam HCl (Versed 100mg/ 100ml Premix) 100 ml @ As Directed STK-MED ONCE 07/15/16 11:03 07/15/16 11:04 DC Midazolam HCl (Versed) 4 mg PRN Q1HR PRN 07/22/16 04:47 07/22/16 05:33 4 MG Midazolam HCl 1 mg 1 mg PRN Q1HR PRN 07/20/16 11:15 07/22/16 04:46 DC Multi-Ingred Cream/Lotion/Oil/ Oint (Artificial Tears Eye Oint) 1 margie PRN Q1HR PRN 07/13/16 11:00 07/13/16 15:45 1 MARGIE Mupirocin (Bactroban) 1 margie BID 07/15/16 09:00 07/26/16 20:46 1 MARGIE Nicardipine HCl/ Sodium Chloride (Cardene/Iv Sodium Chloride 0.9% 250ml) 270 ml @ 0 mls/hr CONT PRN 07/25/16 08:45 07/26/16 09:04 DC 07/25/16 22:46 54 MLS/HR Non-Formulary Medication 2.5 gm DAILY 07/13/16 09:00 UNV Norepinephrine Bitartrate/Sodium Chloride (Levophed Vial/ Iv Sodium Chloride 0.9% 250ml) 258 ml @ 0 mls/hr CONT PRN 07/15/16 11:00 07/26/16 09:04 DC 07/17/16 00:51 25.15 MLS/HR Oxymetazoline HCl (Afrin) 2 spray 1X ONCE 07/12/16 18:30 07/12/16 18:31 DC Pantoprazole Sodium (Protonix Vial) 40 mg DAILYAC 07/23/16 04:47 07/27/16 07:46 40 MG Pantoprazole Sodium/Sodium Chloride (Protonix Iv/Iv Sodium Chloride 0.9% 100ml) 100 ml @ 10 mls/hr Q10H 07/17/16 06:45 07/21/16 12:21 DC 07/21/16 10:10 10 MLS/HR Potassium Acetate/ Magnesium Sulfate/ Calcium Gluconate/ Multivitamins/ Chromium/Copper/ Manganese/Seleni/ Zn/Insulin Human Regular/Total Parenteral Nutrition/Amino Acids/Dextrose/ Fat Emulsion Intravenous (Calcium Gluconate/ Infuvite Adult/ Multitrace-5 Conc/ Novolin R Vial/ Tpn - Tpn Flu... 1,200 ml @ 50 mls/hr TPN CONT 07/19/16 22:00 07/19/16 22:00 DC Potassium Chloride (KCl Premix 20meq) 50 ml @ 50 mls/hr Q1H 07/26/16 10:00 07/26/16 11:59 DC 07/26/16 11:55 50 MLS/HR Prednisone (Prednisone) 60 mg 1X ONCE 07/12/16 12:30 07/12/16 12:31 DC 07/12/16 12:40 60 MG Promethazine HCl/ Codeine (Phenergan With Codeine) 5 ml QID 07/12/16 17:00 07/13/16 17:18 DC Propofol (Diprivan) 1,000 mg STK-MED ONCE 07/17/16 16:36 07/19/16 08:22 DC Rocuronium [place] (Zemuron) 50 mg STK-MED ONCE 07/12/16 15:00 07/13/16 08:54 DC Scopolamine (Transderm-Scop) 1 patch Q3DAYS 07/18/16 09:00 07/27/16 09:48 1 PATCH Scopolamine 1 patch 1 patch ONCE ONCE 07/15/16 23:30 07/15/16 23:31 DC Sodium Bicarbonate 50 meq 50 meq 1X ONCE 07/15/16 16:30 07/15/16 16:34 DC 07/15/16 16:30 50 MEQ Sodium Polystyrene Sulfonate (Kayexalate) 30 gm 1X ONCE 07/15/16 08:00 07/15/16 08:08 DC Sodium Polystyrene Sulfonate 30 gm 30 gm 1X ONCE 07/16/16 08:30 07/16/16 08:34 DC 07/16/16 08:41 30 GM Sodium Acetate/ Potassium Acetate/ Magnesium Sulfate/ Calcium Gluconate/ Multivitamins/ Chromium/Copper/ Manganese/Seleni/ Zn/Insulin Human Regular/Total Parenteral Nutrition/Amino Acids/Dextrose/ Fat Emulsion Intravenous (Calcium Gluconate/ Infuvite Adult/ Multitrace-5 Conc/ Novolin R Vi... 1,512 ml @ 63 mls/hr TPN CONT 07/18/16 22:00 07/19/16 21:59 DC 07/18/16 22:03 63 MLS/HR Sodium Bicarbonate 50 meq 1X ONCE 07/16/16 08:45 07/16/16 08:46 DC 07/16/16 08:41 50 MEQ Sodium Chloride (Iv Sodium Chloride 0.9% 1000ml Bag) 1,000 ml @ 75 mls/hr [id number] 07/20/16 11:15 07/23/16 11:50 DC 07/23/16 05:31 75 MLS/HR Sodium Chloride 40 meq/Sodium Acetate 40 meq/ Magnesium Sulfate 8 meq/Calcium Gluconate 5 meq/ Multivitamins 10 ml/Chromium/ Copper/Manganese/ Seleni/Zn 1 ml/ Insulin Human Regular 10 unit/ Total Parenteral Nutrition/Amino Acids/Dextrose/ Fat Emulsion Intravenous 1,512 ml @ 63 mls/hr TPN CONT 07/16/16 22:00 07/17/16 21:59 DC 07/16/16 21:53 63 MLS/HR Sodium Chloride/ Magnesium Sulfate/ Calcium Gluconate/ Multivitamins/ Chromium/Copper/ Manganese/Seleni/ Zn/Total Parenteral Nutrition/Amino Acids/Dextrose (Sodium Chloride/ Infuvite Adult/ Multitrace-5 Conc/ Tpn - Tpn Fluid/ Trophamine/ Dextrose 70%-Water Iv Soln) 1,512 ml @ 63 mls/hr TPN CONT 07/15/16 22:00 07/16/16 21:59 DC 07/15/16 21:27 63 MLS/HR Succinylcholine Chloride (Anectine) 200 mg STK-MED ONCE 07/12/16 18:00 07/13/16 09:05 DC Vasopressin 40 unit/Dextrose 102 ml @ 6 mls/hr CONT PRN 07/16/16 05:00 07/24/16 14:38 DC 07/17/16 13:33 6 MLS/HR Vecuronium [place] 10 mg 10 mg STK-MED ONCE 07/15/16 11:03 07/15/16 11:04 DC Vecuronium [place]/Dextrose (Norcuron) 100 ml @ 0 mls/hr CONT PRN 07/12/16 21:00 07/14/16 09:31 DC 07/13/16 20:48 2.58 MLS/HR Vecuronium [place] (Norcuron Bolus) 10 mg STK-MED ONCE 07/15/16 11:00 07/16/16 08:06 DC Warfarin Sodium (Coumadin Per Pharmacy) 1 each PRN DAILY PRN 07/19/16 09:45 07/26/16 15:34 DC 07/26/16 14:48 1 EACH Warfarin Sodium (Coumadin) 5 mg 1X WARF ONCE 07/26/16 16:00 07/26/16 16:01 Cancel Warfarin Sodium 7.5 mg 7.5 mg 1X WARF ONCE 07/23/16 16:00 07/23/16 16:01 DC 07/23/16 16:53 7.5 MG Lab Laboratory Tests Test 07/26/16 13:20 07/26/16 13:21 07/26/16 13:29 07/26/16 13:30 Glucose (Fingerstick) 36mg/dL (70-99) 39mg/dL (70-99) 197mg/dL (70-99) Prothrombin Time 24.7SEC (11.7-14.0) Prothromb Time International Ratio 2.4 (0.8-1.1) Test 07/26/16 17:14 07/26/16 18:37 07/26/16 21:03 07/27/16 00:35 Glucose (Fingerstick) 87mg/dL (70-99) 117mg/dL (70-99) 155mg/dL (70-99) 221mg/dL (70-99) Test 07/27/16 05:46 07/27/16 05:50 Glucose (Fingerstick) 217mg/dL (70-99) White Blood Count 15.1x10^3/uL (4.0-11.0) Red Blood Count 3.93x10^6/uL (4.30-5.70) Hemoglobin 11.0g/dL (13.0-17.5) Hematocrit 35.1% (39.0-53.0) Mean Corpuscular Volume 89fL (79-100) Mean Corpuscular Hemoglobin 28pg (25-35) Mean Corpuscular Hemoglobin Concent 31g/dL (31-37) Red Cell Distribution Width 15.1% (11.5-14.5) Platelet Count 241x10^3/uL (140-400) Neutrophils (%) (Auto) 91% (31-73) Lymphocytes (%) (Auto) 4% (24-48) Monocytes (%) (Auto) 5% (0-9) Eosinophils (%) (Auto) 0% (0-3) Basophils (%) (Auto) 0% (0-3) Neutrophils # (Auto) 13.8x10^3uL (1.8-7.7) Lymphocytes # (Auto) 0.5x10^3/uL (1.0-4.8) Monocytes # (Auto) 0.7x10^3/uL (0.0-1.1) Eosinophils # (Auto) 0.0x10^3/uL (0.0-0.7) Basophils # (Auto) 0.0x10^3/uL (0.0-0.2) Sodium Level 147mmol/L (136-145) Potassium Level 4.9mmol/L (3.5-5.1) Chloride Level 109mmol/L (98-107) Carbon Dioxide Level 25mmol/L (21-32) Anion Gap 13 (6-14) Blood Urea Nitrogen 39mg/dL (8-26) Creatinine 1.1mg/dL (0.7-1.3) Estimated GFR (Cockcroft-Gault) 79.4 Glucose Level 262mg/dL (70-99) Calcium Level 8.5mg/dL (8.5-10.1) FELIBERTO GIL MD Jul 27, 2016 10:05
[2016-07-27] MEDS ORDERED: POTASSIUM CHLORIDE 20MEQ 50 ML IV PRN ×2 (10:15)
[2016-07-27] MEDS ORDERED: MAGNESIUM SULFATE 2GM 50 ML IV PRN (10:15)
[2016-07-27] MEDS: FUROSEMIDE 40 MG/4 ML VIAL. IVP SCH ×2 (11:15→13:34)
--- NOTE | 2016-07-27 12:08 | PDOC ---
PULMONARY PROGRESS NOTES Subjective EXTUBATEd 07/22 NO INCREASE SOA Vitals Vital Signs Date Time Temp Pulse Resp B/P Pulse Ox O2 Delivery O2 Flow Rate FiO2 07/27/16 11:10 97 Room Air 07/27/16 08:00 98.3 84 23 171/83 98.3 07/27/16 04:30 1.5 General: Alert, No acute distress HEENT: Other (nc at orally intubated, nose clear, ) Lungs: Other (decreased breath sounds bilaterally. ) Cardiovascular: S1, S2 Abdomen: Soft, Non-tender, Other (no groin tenderness) Neuro Exam: Alert Extremities: Other (2+EDEMA) Skin: Warm Labs Laboratory Tests Test 07/25/16 12:27 07/25/16 18:02 07/25/16 21:10 07/25/16 23:37 Glucose (Fingerstick) 192mg/dL (70-99) 286mg/dL (70-99) 118mg/dL (70-99) 50mg/dL (70-99) Test 07/25/16 23:51 07/26/16 04:30 07/26/16 06:16 07/26/16 06:42 Glucose (Fingerstick) 130mg/dL (70-99) 50mg/dL (70-99) 75mg/dL (70-99) White Blood Count 18.4x10^3/uL (4.0-11.0) Red Blood Count 3.11x10^6/uL (4.30-5.70) Hemoglobin 8.7g/dL (13.0-17.5) Hematocrit 27.5% (39.0-53.0) Mean Corpuscular Volume 88fL (79-100) Mean Corpuscular Hemoglobin 28pg (25-35) Mean Corpuscular Hemoglobin Concent 32g/dL (31-37) Red Cell Distribution Width 15.5% (11.5-14.5) Platelet Count 173x10^3/uL (140-400) Neutrophils (%) (Auto) 88% (31-73) Lymphocytes (%) (Auto) 5% (24-48) Monocytes (%) (Auto) 6% (0-9) Eosinophils (%) (Auto) 0% (0-3) Basophils (%) (Auto) 0% (0-3) Neutrophils # (Auto) 16.2x10^3uL (1.8-7.7) Lymphocytes # (Auto) 1.0x10^3/uL (1.0-4.8) Monocytes # (Auto) 1.1x10^3/uL (0.0-1.1) Eosinophils # (Auto) 0.0x10^3/uL (0.0-0.7) Basophils # (Auto) 0.1x10^3/uL (0.0-0.2) Sodium Level 148mmol/L (136-145) Potassium Level 3.2mmol/L (3.5-5.1) Chloride Level 115mmol/L (98-107) Carbon Dioxide Level 28mmol/L (21-32) Anion Gap 5 (6-14) Blood Urea Nitrogen 30mg/dL (8-26) Creatinine 0.8mg/dL (0.7-1.3) Estimated GFR (Cockcroft-Gault) 114.7 Glucose Level 60mg/dL (70-99) Calcium Level 7.6mg/dL (8.5-10.1) Test 07/26/16 07:38 07/26/16 07:49 07/26/16 08:15 07/26/16 13:20 Glucose (Fingerstick) 51mg/dL (70-99) 98mg/dL (70-99) 36mg/dL (70-99) O2 Saturation 97% (92-99) Arterial Blood pH 7.46 (7.35-7.45) Arterial Blood pCO2 at Patient Temp 40mmHg (35-46) Arterial Blood pO2 at Patient Temp 99mmHg (65-108) Arterial Blood HCO3 28mmol/L (21-28) Arterial Blood Base Excess 4mmol/L (-3-3) FiO2 36% Test 07/26/16 13:21 07/26/16 13:29 07/26/16 13:30 07/26/16 17:14 Glucose (Fingerstick) 39mg/dL (70-99) 197mg/dL (70-99) 87mg/dL (70-99) Prothrombin Time 24.7SEC (11.7-14.0) Prothromb Time International Ratio 2.4 (0.8-1.1) Test 07/26/16 18:37 07/26/16 21:03 07/27/16 00:35 07/27/16 05:46 Glucose (Fingerstick) 117mg/dL (70-99) 155mg/dL (70-99) 221mg/dL (70-99) 217mg/dL (70-99) Test 07/27/16 05:50 07/27/16 11:16 White Blood Count 15.1x10^3/uL (4.0-11.0) Red Blood Count 3.93x10^6/uL (4.30-5.70) Hemoglobin 11.0g/dL (13.0-17.5) Hematocrit 35.1% (39.0-53.0) Mean Corpuscular Volume 89fL (79-100) Mean Corpuscular Hemoglobin 28pg (25-35) Mean Corpuscular Hemoglobin Concent 31g/dL (31-37) Red Cell Distribution Width 15.1% (11.5-14.5) Platelet Count 241x10^3/uL (140-400) Neutrophils (%) (Auto) 91% (31-73) Lymphocytes (%) (Auto) 4% (24-48) Monocytes (%) (Auto) 5% (0-9) Eosinophils (%) (Auto) 0% (0-3) Basophils (%) (Auto) 0% (0-3) Neutrophils # (Auto) 13.8x10^3uL (1.8-7.7) Lymphocytes # (Auto) 0.5x10^3/uL (1.0-4.8) Monocytes # (Auto) 0.7x10^3/uL (0.0-1.1) Eosinophils # (Auto) 0.0x10^3/uL (0.0-0.7) Basophils # (Auto) 0.0x10^3/uL (0.0-0.2) Sodium Level 147mmol/L (136-145) Potassium Level 4.9mmol/L (3.5-5.1) Chloride Level 109mmol/L (98-107) Carbon Dioxide Level 25mmol/L (21-32) Anion Gap 13 (6-14) Blood Urea Nitrogen 39mg/dL (8-26) Creatinine 1.1mg/dL (0.7-1.3) Estimated GFR (Cockcroft-Gault) 79.4 Glucose Level 262mg/dL (70-99) Calcium Level 8.5mg/dL (8.5-10.1) Glucose (Fingerstick) 264mg/dL (70-99) Laboratory Tests Test 07/26/16 13:20 07/26/16 13:21 07/26/16 13:29 07/26/16 13:30 Glucose (Fingerstick) 36mg/dL (70-99) 39mg/dL (70-99) 197mg/dL (70-99) Prothrombin Time 24.7SEC (11.7-14.0) Prothromb Time International Ratio 2.4 (0.8-1.1) Test 07/26/16 17:14 07/26/16 18:37 07/26/16 21:03 07/27/16 00:35 Glucose (Fingerstick) 87mg/dL (70-99) 117mg/dL (70-99) 155mg/dL (70-99) 221mg/dL (70-99) Test 07/27/16 05:46 07/27/16 05:50 07/27/16 11:16 Glucose (Fingerstick) 217mg/dL (70-99) 264mg/dL (70-99) White Blood Count 15.1x10^3/uL (4.0-11.0) Red Blood Count 3.93x10^6/uL (4.30-5.70) Hemoglobin 11.0g/dL (13.0-17.5) Hematocrit 35.1% (39.0-53.0) Mean Corpuscular Volume 89fL (79-100) Mean Corpuscular Hemoglobin 28pg (25-35) Mean Corpuscular Hemoglobin Concent 31g/dL (31-37) Red Cell Distribution Width 15.1% (11.5-14.5) Platelet Count 241x10^3/uL (140-400) Neutrophils (%) (Auto) 91% (31-73) Lymphocytes (%) (Auto) 4% (24-48) Monocytes (%) (Auto) 5% (0-9) Eosinophils (%) (Auto) 0% (0-3) Basophils (%) (Auto) 0% (0-3) Neutrophils # (Auto) 13.8x10^3uL (1.8-7.7) Lymphocytes # (Auto) 0.5x10^3/uL (1.0-4.8) Monocytes # (Auto) 0.7x10^3/uL (0.0-1.1) Eosinophils # (Auto) 0.0x10^3/uL (0.0-0.7) Basophils # (Auto) 0.0x10^3/uL (0.0-0.2) Sodium Level 147mmol/L (136-145) Potassium Level 4.9mmol/L (3.5-5.1) Chloride Level 109mmol/L (98-107) Carbon Dioxide Level 25mmol/L (21-32) Anion Gap 13 (6-14) Blood Urea Nitrogen 39mg/dL (8-26) Creatinine 1.1mg/dL (0.7-1.3) Estimated GFR (Cockcroft-Gault) 79.4 Glucose Level 262mg/dL (70-99) Calcium Level 8.5mg/dL (8.5-10.1) Medications Active Scripts Medications Dose Route/Sig Days Date Category Advair 100-50 Diskus (Fluticasone/Salmeterol) 1 Each Disk.w.dev 1 Puff IH BID 06/21/16 Reported Spiriva Respimat (Tiotropium Crestline) 4 Gm Mist.inhal 2.5 Gm IH DAILY 06/21/16 Reported Symbicort 160-4.5 Mcg Inhaler (Budesonide/Formoterol Fumarate) 10.2 Gm Hfa.aer.ad 2 Puff IH BID 06/21/16 Reported Atorvastatin Calcium 20 Mg Tablet 20 Mg PO HS 06/21/16 Reported Lisinopril-Hctz 10-12.5 Mg Tab (Lisinopril/Hydrochlorothiazide) 1 Each Tablet 1 Tab PO DAILY 06/21/16 Reported Isosorbide Mononitrate Er (Isosorbide Mononitrate) 120 Mg Tab.er.24h 120 Mg PO DAILY 06/21/16 Reported Levemir Flextouch (Insulin Detemir) 100 Unit/1 Ml Insuln.pen 20 Units SQ QHS 30 11/24/15 Rx Novolog Flexpen (Insulin Aspart) 100 Unit/1 Ml Insuln.pen 10 Units SQ TIDAC 30 11/24/15 Rx Novolin N (Nph, Human Insulin Isophane) 100 Unit/1 Ml Vial 0 SQ 11/18/15 Reported Promethazine-Codeine Syrup (Promethazine Hcl/Codeine) 118 Ml Syrup 5 Ml PO Q4-6HRS 11/18/15 Reported Diltiazem 24HR Cd (Diltiazem Hcl) 240 Mg Cap.er.24h 240 Mg PO DAILY 11/18/15 Reported NITROGLYCERIN SubLingual (Nitroglycerin) 0.4 Mg Tab.subl 0.4 Mg SL PRN Q5MIN PRN 11/18/15 Reported Atorvastatin Calcium 40 Mg Tablet 40 Mg PO HS 11/18/[address] reviewed, 1. Widespread multifocal bilateral segmental pulmonary embolism, with nonocclusive lobar embolism involving the right lower and middle lobes. 2. Diffuse tree-in-bud opacification suggestive of acute bronchiolitis. Findings are less confluence than on the prior examination, but now involve the lower lobes. 3. Right heart enlargement with straightening of the interventricular septum possibly due to pulmonary hypertension. Correlate clinically and consider echocardiography if warranted. 4. Short segment high-grade stricture and/or focal obliteration of the right upper lobe bronchus. No adjacent mass or evidence of extrinsic compression. This is stable. CXR REVIEWED Impression . 1. Acute respiratory failure secondary to angioedema, self extubated 07/14, reintubated 07/15, s/p cardiopulmonary arrest, Acute extensive PE, DVT, s/p TPA 2. Acute extensive PE with shock, DVT, s/p TPA, off pressors 2. Lisinopril induced angioedema. resolved 3. Chronic obstructive pulmonary disease. 4. Hypertension. 5. Coronary artery disease. s/p emergent cath.no sig disease 6. BASIM, improving 7. anemia,improved, Plan . NEEDS REHAB SPEECH EVALUATION ADVANCE DIET D/W RN AND RT WILL CONTINUE THE SAME DYSPHAGIA IMPROVING REPEAT CXR STABLE D/C STEROIDS ANTICOAGULATION FOR AT LEAST 3 M IVANA MCCONNELL MD Jul 27, 2016 12:08
[2016-07-27 14:49] LABS: MAGNESIUM 2.1 mg/dL (1.8-2.4); PHOSPHORUS 4.9 mg/dL (2.6-4.7)
[2016-07-27] MEDS: TPN PER PHARMACY MC PRN (15:16)
--- NOTE | 2016-07-27 15:23 | PDOC ---
Objective: Objective: No GI concerns per RN. 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 Vital Signs: Vital Signs Date Time Temp Pulse Resp B/P Pulse Ox O2 Delivery O2 Flow Rate FiO2 07/27/16 12:00 98.0 88 23 132/74 96 Room Air 98.0 07/27/16 04:30 1.5 Labs: Laboratory Tests Test 07/26/16 17:14 07/26/16 18:37 07/26/16 21:03 07/27/16 00:35 Glucose (Fingerstick) 87mg/dL 117mg/dL 155mg/dL 221mg/dL Test 07/27/16 05:46 07/27/16 05:50 07/27/16 11:16 07/27/16 13:40 Glucose (Fingerstick) 217mg/dL 264mg/dL White Blood Count 15.1x10^3/uL Red Blood Count 3.93x10^6/uL Hemoglobin 11.0g/dL Hematocrit 35.1% Mean Corpuscular Volume 89fL Mean Corpuscular Hemoglobin 28pg Mean Corpuscular Hemoglobin Concent 31g/dL Red Cell Distribution Width 15.1% Platelet Count 241x10^3/uL Neutrophils (%) (Auto) 91% Lymphocytes (%) (Auto) 4% Monocytes (%) (Auto) 5% Eosinophils (%) (Auto) 0% Basophils (%) (Auto) 0% Neutrophils # (Auto) 13.8x10^3uL Lymphocytes # (Auto) 0.5x10^3/uL Monocytes # (Auto) 0.7x10^3/uL Eosinophils # (Auto) 0.0x10^3/uL Basophils # (Auto) 0.0x10^3/uL Sodium Level 147mmol/L Potassium Level 4.9mmol/L 4.7mmol/L Chloride Level 109mmol/L Carbon Dioxide Level 25mmol/L Anion Gap 13 Blood Urea Nitrogen 39mg/dL Creatinine 1.1mg/dL Estimated GFR (Cockcroft-Gault) 79.4 Glucose Level 262mg/dL Calcium Level 8.5mg/dL Phosphorus Level 4.9mg/dL Magnesium Level 2.1mg/dL PE: GEN: NAD LUNGS: clear anteriorly HEART: S1S2 ABD: S/ND/NT NEURO/PSYCH: awake/alert A/P: Dysphagia Resp failure (extubated), s/p arrest, s/p cardiac cath, PE and DVT s/p TPA -on TPN, IV PPI Anemia - improved -- Continue same per GI. SANDOR SARMIENTO Jul 27, 2016 15:23
[2016-07-27] MEDS: ATORVASTATIN CALCIUM 40 MG TABLET. PO SCH (21:00)
[2016-07-27] MEDS ORDERED: DEXTROSE 70% IV SCH ×9 (22:00)
[2016-07-27] MEDS ORDERED: [UNRECOGNIZED DRUG - OTHER] IV SCH ×9 (22:00)
[2016-07-27] MEDS ORDERED: AMINO ACIDS IV SCH ×9 (22:00)
[2016-07-27] MEDS ORDERED: TOTAL PARENTERAL NUTRITION IV SCH ×9 (22:00)
[2016-07-28] MEDS: INSULIN ASPART 300 UNITS/3 ML INSULN.PEN SQ SCH ×5 (00:35→23:15)
[2016-07-28 03:05] VITALS: BP 170/86
[2016-07-28] MEDS: ALBUTEROL SULFATE 2.5 MG/3 ML NEBU. NEB PRN (03:33)
[2016-07-28] MEDS: FENTANYL PF 100 MCG/2 ML VIAL. IV PRN ×3 (06:28→23:14)
[2016-07-28 06:55] LABS: BASO # 0.1 x10^3/uL (0.0-0.2); BASO % 1 % (0-3); EOS % 1 % (0-3); HEMATOCRIT 31.3 % (39.0-53.0); LYMPH # 1.8 x10^3/uL (1.0-4.8); LYMPH % 10 % (24-48); MEAN CORPUSCULAR HEMOGLOBIN 28 pg (25-35); MEAN CORPUSCULAR HGB CONC 32 g/dL (31-37); MEAN CORPUSCULAR VOLUME 89 fL (79-100); MONO % 7 % (0-9); NEUT % 82 % (31-73); PLATELET COUNT 221 x10^3/uL (140-400); RED BLOOD COUNT 3.54 x10^6/uL (4.30-5.70); RED CELL DISTRIBUTION WIDTH 15.1 % (11.5-14.5); WHITE BLOOD COUNT 17.7 x10^3/uL (4.0-11.0)
[2016-07-28 07:08] LABS: CALCIUM 8.3 mg/dL (8.5-10.1); CREATININE 1.1 mg/dL (0.7-1.3); GFR 79.4; PHOSPHORUS 3.5 mg/dL (2.6-4.7); POTASSIUM 3.7 mmol/L (3.5-5.1)
[2016-07-28 07:30] VITALS: BP 172/84
[2016-07-28] MEDS ORDERED: RIVAROXABAN 15 MG TABLET. PO SCH (08:00)
[2016-07-28] MEDS: IPRATROPIUM BROMIDE 0.5 MG/2.5 ML NEBU. NEB SCH ×4 (08:19→20:42)
[2016-07-28] MEDS: PANTOPRAZOLE IV PUSH 40 MG VIAL. IVP SCH (08:30)
[2016-07-28] MEDS: FUROSEMIDE 40 MG/4 ML VIAL. IVP SCH (08:31)
[2016-07-28] MEDS: HYDROCORTISONE SOD SUCC/PF 100 MG/2 ML VIAL. IV SCH (08:31)
[2016-07-28] MEDS: DOCUSATE SODIUM 100 MG CAPSULE. PO SCH ×2 (08:32→21:00)
[2016-07-28] MEDS: MUPIROCIN 2 % NASAL OINTMENT 22GM TUBE. NS SCH ×2 (08:32→20:50)
--- NOTE | 2016-07-28 11:09 | PDOC ---
SUBJECTIVE ROS ^Na - Doing better overall OBJECTIVE Vital Signs Vital Signs Date Time Temp Pulse Resp B/P Pulse Ox O2 Delivery O2 Flow Rate FiO2 07/28/16 08:20 6 Room Air 07/28/16 07:30 98.1 67 172/84 98.1 07/28/16 06:58 18 I & 0 Intake and Output 07/28/16 07:00 Intake Total 627 ml Output Total 4210 ml Balance -3583 ml Intake Oral 0 ml IV Total 627 ml Output Urine Total 4210 ml PHYSICAL EXAM Physical Exam General Appearance: Awake: but not fully Alert Oriented x 0 Neck: No JVD or JVP Chest: CTA Evan - rare rales Heart: S1 S2, ? murmur Abdomen - Soft NTND Extremities - + Edema DIAGNOSIS/ASSESSMENT ^Na - ct Hypotonic fluids - changed PPN to D5W since Na slightly improved today low K - Supplement as needed per sliding scale ? 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 - check CTA Renals, Edema - better after starting Lasix; hold for now due to CTA COMMENT/RELEVANT DATA Meds Current Medications Medications (Trade) Dose Ordered Sig/Ann Marie Start Time Stop Time Status Last Admin Dose Admin Albumin Human (Plasmanate) 500 ml @ 125 mls/hr PRN Q6HRS PRN 07/16/16 08:30 07/24/16 14:38 DC 07/17/16 08:12 125 MLS/HR Albuterol Sulfate (Ventolin Neb Soln) 2.5 mg PRN Q2HR PRN 07/12/16 16:00 07/28/16 03:33 2.5 MG Albuterol/ Ipratropium (Duoneb) 3 ml QID 07/12/16 17:00 UNV Alteplase, Recombinant (Activase) 100 ml @ 50 mls/hr 1X ONCE 07/15/16 17:30 07/15/16 19:29 DC 07/15/16 17:30 50 MLS/HR Alteplase, Recombinant (Cathflo) 2 mg 1X ONCE 07/26/16 15:45 07/26/16 15:46 DC 07/26/16 16:15 2 MG Amino Acids/ Electrolytes/ Dextrose (Clinimix E 4.25%-5% Solution) 1,000 ml @ 80 mls/hr [id number] 07/23/16 12:00 07/27/16 14:18 DC 07/27/16 04:34 80 MLS/HR Atorvastatin Calcium (Lipitor) 40 mg HS 07/24/16 21:00 07/25/16 21:11 40 MG Atropine Sulfate 1 mg STK-MED ONCE 07/18/16 09:43 07/19/16 08:53 DC Atropine Sulfate 0.5 mg 0.5 mg STK-MED ONCE 07/18/16 09:43 07/18/16 09:44 DC Benzocaine (Hurricaine One) 1 spray STK-MED ONCE 07/12/16 12:00 07/13/16 16:00 DC Budesonide (Pulmicort) 0.5 mg RTBID 07/12/16 20:00 07/13/16 11:27 DC 07/13/16 07:30 0.5 MG Calcium Chloride 2,000 mg STK-MED ONCE 07/16/16 13:02 07/17/16 13:03 DC Ceftriaxone Sodium/Sodium Chloride (Rocephin/Iv Sodium Chloride 0.9% 50ml) 50 ml @ 100 mls/hr Q24H 07/14/16 12:00 07/20/16 12:29 DC 07/19/16 12:25 100 MLS/HR Chlorhexidine Gluconate (Peridex) 15 ml BID 07/13/16 09:00 07/23/16 09:42 DC 07/23/16 08:22 15 ML Clonidine HCl (Catapres Tts-2) 2 patch WEEKLY 07/26/16 10:00 07/26/16 10:34 2 PATCH Clonidine HCl 1 patch 1 patch WEEKLY 07/24/16 15:00 07/26/16 09:07 DC 07/24/16 19:05 1 PATCH Dextrose (Dextrose 50%-Water Syringe) 12.5 gm PRN Q15MIN PRN 07/26/16 13:30 07/26/16 13:27 25 GM Diltiazem HCl (Cardizem 24hr Cd) 240 mg DAILY 07/15/16 09:00 07/16/16 07:39 DC Diphenhydramine HCl (Benadryl) 25 mg PRN Q6HRS PRN 07/26/16 15:00 07/26/16 15:13 25 MG Docusate Sodium (Colace) 100 mg BID 07/21/16 21:00 07/25/16 21:11 100 MG Dopamine HCl/ Dextrose 400 mg STK-MED ONCE 07/15/16 11:00 07/16/16 08:06 DC Enoxaparin Sodium (Lovenox 100mg Syringe) 100 mg Q12HR 07/28/16 11:00 Enoxaparin Sodium (Lovenox 40mg Syringe) 40 mg DAILY 07/12/16 16:30 07/15/16 14:28 DC 07/15/16 08:54 40 MG Epinephrine HCl 4 mg STK-MED ONCE 07/16/16 13:02 07/17/16 13:03 DC Fentanyl Citrate (Fentanyl 2ml Vial) 50 mcg PRN Q2HR PRN 07/22/16 04:45 07/28/16 06:28 50 MCG Fentanyl Citrate (Fentanyl 600 Mcg/30 ml ROUGHER HELPER) 30 ml @ 0 mls/hr CONT PRN 07/16/16 07:15 07/26/16 09:04 DC 07/25/16 17:57 2.5 MLS/HR Furosemide (Lasix) 40 mg [id number] 07/27/16 10:30 07/29/16 14:01 07/28/16 08:31 40 MG Glycopyrrolate (Robinul) 1 mg STK-MED ONCE 07/12/16 15:00 07/13/16 08:54 DC Guaifenesin (Mucinex) 600 mg BID 07/15/16 09:00 07/16/16 07:39 DC Heparin Sodium (Porcine) (Heparin Sodium) 1,600 unit PRN Q6HRS PRN 07/24/16 13:39 Cancel Heparin Sodium (Porcine) 2500 unit 2,500 unit 1X ONCE 07/16/16 09:15 07/16/16 09:16 DC 07/16/16 10:44 2,500 UNIT Heparin Sodium (Porcine) 7400 unit 7,400 unit 1X ONCE 07/19/16 09:45 07/19/16 09:53 DC 07/19/16 10:03 7,400 UNIT Heparin Sodium/ Dextrose 500 ml @ 0 mls/hr CONT PRN 07/19/16 09:45 07/25/16 13:12 DC 07/25/16 01:58 25.2 MLS/HR Heparin Sodium/ Sodium Chloride 1,000 unit 1X ONCE 07/17/16 11:15 07/17/16 11:26 DC 07/17/16 11:27 1,000 UNIT Heparin Sodium/ Sodium Chloride 1000 unit 1,000 unit 1X ONCE 07/15/16 12:00 07/15/16 12:01 DC Hydralazine HCl (Apresoline) 20 mg PRN Q4HRS PRN 07/24/16 14:45 07/27/16 07:47 20 MG Hydrochlorothiazide (Microzide) 12.5 mg DAILY 07/15/16 09:00 07/16/16 07:39 DC Hydrocortisone Sodium Succinate (Solu-Cortef) 25 mg BID 07/26/16 09:00 07/27/16 10:07 DC 07/27/16 09:48 25 MG Hydrocortisone Sodium Succinate 25 mg 25 mg DAILY 07/28/16 09:00 07/29/16 09:01 07/28/16 08:31 25 MG Info (Anti-Coagulation Monitoring By Pharmacy) 1 each PRN DAILY PRN 07/16/16 08:45 Cancel Info (Do NOT chart on this entry -- for MONITORING) 1 each PRN DAILY PRN 07/17/16 11:30 07/19/16 11:29 DC Info 1 each 1 each PRN DAILY PRN 07/27/16 14:15 07/27/16 15:16 1 EACH Insulin Aspart (Novolog) 0-9 UNITS Q6HRS 07/21/16 13:00 07/28/16 06:39 4 UNITS Insulin Aspart 10 units 10 units 1X ONCE 07/12/16 19:45 07/12/16 19:46 DC 07/12/16 19:41 10 UNITS Insulin Aspart 20 units 20 units 1X ONCE 07/18/16 08:15 07/18/16 11:56 DC 07/18/16 10:02 20 UNITS Insulin Detemir (Levemir) 25 units QHS 07/21/16 21:00 07/26/16 08:09 DC 07/25/16 21:16 25 UNITS Insulin Human Regular (Novolin R Vial) 10 unit 1X ONCE 07/12/16 13:15 07/12/16 13:16 DC 07/12/16 13:16 10 UNIT Insulin Human Regular 150 unit/ Sodium Chloride 151.5 ml @ 0 mls/hr CONT PRN 07/16/16 05:00 07/17/16 10:10 DC 07/17/16 02:26 5.15 MLS/HR Insulin Human Regular/Sodium Chloride (Novolin R Vial/ Iv Normal Saline 150ml) 151.5 ml @ 0 mls/hr CONT PRN 07/18/16 11:45 07/19/16 10:27 DC 07/18/16 13:54 13.3 MLS/HR Iohexol (Omnipaque 300 Mg/ml) 40 ml 1X ONCE 07/17/16 11:15 07/17/16 11:26 DC 07/17/16 11:26 40 ML Ipratropium Chicken (Atrovent) 0.5 mg RTQID 07/16/16 12:00 07/28/16 08:19 0.5 MG Isosorbide Mononitrate (Imdur) 120 mg DAILY 07/15/16 09:00 07/16/16 07:39 DC Ketamine HCl 500 mg STK-MED ONCE 07/12/16 18:30 07/13/16 12:05 DC Lidocaine HCl 10 ml 1X ONCE 07/15/16 12:00 07/15/16 12:01 DC 07/15/16 11:57 10 ML Lidocaine HCl 20 ml 20 ml STK-MED ONCE 07/15/16 10:45 07/15/16 10:46 DC Lidocaine HCl 5 margie 5 margie STK-MED ONCE 07/12/16 12:00 07/13/16 16:00 DC Lidocaine/Sodium Bicarbonate (Buffered Lidocaine 1%) 3 ml 1X ONCE 07/17/16 11:15 07/17/16 11:26 DC 07/17/16 11:15 3 ML Lorazepam (Ativan) 1 mg PRN Q4HRS PRN 07/26/16 01:30 07/26/16 11:55 1 MG Magnesium Sulfate/ Dextrose 50 ml @ 25 mls/hr PRN DAILY PRN 07/27/16 10:15 07/27/16 14:19 DC Methylprednisolone Sodium Succinate (Solu-Medrol 40mg Vial) 60 mg DAILY 07/13/16 09:00 07/13/16 09:00 DC Methylprednisolone Sodium Succinate (Solu-Medrol 125mg Vial) 125 mg 1X ONCE 07/26/16 15:30 07/26/16 15:31 DC 07/26/16 15:11 125 MG Metoprolol Tartrate (Lopressor) 5 mg Q6HRS 07/22/16 12:30 07/26/16 09:08 DC 07/26/16 06:09 5 MG Midazolam HCl (Versed 100mg/ 100ml Premix) 100 ml @ As Directed STK-MED ONCE 07/15/16 11:03 07/15/16 11:04 DC Midazolam HCl (Versed) 4 mg PRN Q1HR PRN 07/22/16 04:47 07/22/16 05:33 4 MG Midazolam HCl 1 mg 1 mg PRN Q1HR PRN 07/20/16 11:15 07/22/16 04:46 DC Multi-Ingred Cream/Lotion/Oil/ Oint (Artificial Tears Eye Oint) 1 margie PRN Q1HR PRN 07/13/16 11:00 07/13/16 15:45 1 MARGIE Mupirocin (Bactroban) 1 margie BID 07/15/16 09:00 07/28/16 08:32 1 MARGIE Nicardipine HCl/ Sodium Chloride (Cardene/Iv Sodium Chloride 0.9% 250ml) 270 ml @ 0 mls/hr CONT PRN 07/25/16 08:45 07/26/16 09:04 DC 07/25/16 22:46 54 MLS/HR Non-Formulary Medication 2.5 gm DAILY 07/13/16 09:00 UNV Norepinephrine Bitartrate/Sodium Chloride (Levophed Vial/ Iv Sodium Chloride 0.9% 250ml) 258 ml @ 0 mls/hr CONT PRN 07/15/16 11:00 07/26/16 09:04 DC 07/17/16 00:51 25.15 MLS/HR Oxymetazoline HCl (Afrin) 2 spray 1X ONCE 07/12/16 18:30 07/12/16 18:31 DC Pantoprazole Sodium (Protonix Vial) 40 mg DAILYAC 07/23/16 04:47 07/28/16 08:30 40 MG Pantoprazole Sodium/Sodium Chloride (Protonix Iv/Iv Sodium Chloride 0.9% 100ml) 100 ml @ 10 mls/hr Q10H 07/17/16 06:45 07/21/16 12:21 DC 07/21/16 10:10 10 MLS/HR Potassium Acetate/ Magnesium Sulfate/ Calcium Gluconate/ Multivitamins/ Chromium/Copper/ Manganese/Seleni/ Zn/Insulin Human Regular/Total Parenteral Nutrition/Amino Acids/Dextrose/ Fat Emulsion Intravenous (Calcium Gluconate/ Infuvite Adult/ Multitrace-5 Conc/ Novolin R Vial/ Tpn - Tpn Flu... 1,512 ml @ 63 mls/hr TPN CONT 07/27/16 22:00 07/28/16 21:59 07/27/16 21:42 63 MLS/HR Potassium Chloride (KCl Premix 20meq) 50 ml @ 50 mls/hr PRN Q2HR PRN 07/27/16 10:15 07/27/16 14:19 DC Prednisone (Prednisone) 60 mg 1X ONCE 07/12/16 12:30 07/12/16 12:31 DC 07/12/16 12:40 60 MG Promethazine HCl/ Codeine (Phenergan With Codeine) 5 ml QID 07/12/16 17:00 07/13/16 17:18 DC Propofol (Diprivan) 1,000 mg STK-MED ONCE 07/17/16 16:36 07/19/16 08:22 DC Rivaroxaban (Xarelto) 15 mg [id number] 07/28/16 08:00 07/28/16 10:33 DC Rocuronium Chicken (Zemuron) 50 mg STK-MED ONCE 07/12/16 15:00 07/13/16 08:54 DC Scopolamine (Transderm-Scop) 1 patch Q3DAYS 07/18/16 09:00 07/27/16 09:48 1 PATCH Scopolamine 1 patch 1 patch ONCE ONCE 07/15/16 23:30 07/15/16 23:31 DC Sodium Bicarbonate 50 meq 50 meq 1X ONCE 07/15/16 16:30 07/15/16 16:34 DC 07/15/16 16:30 50 MEQ Sodium Polystyrene Sulfonate (Kayexalate) 30 gm 1X ONCE 07/15/16 08:00 07/15/16 08:08 DC Sodium Polystyrene Sulfonate 30 gm 30 gm 1X ONCE 07/16/16 08:30 07/16/16 08:34 DC 07/16/16 08:41 30 GM Sodium Acetate/ Potassium Acetate/ Magnesium Sulfate/ Calcium Gluconate/ Multivitamins/ Chromium/Copper/ Manganese/Seleni/ Zn/Insulin Human Regular/Total Parenteral Nutrition/Amino Acids/Dextrose/ Fat Emulsion Intravenous (Calcium Gluconate/ Infuvite Adult/ Multitrace-5 Conc/ Novolin R Vi... 1,512 ml @ 63 mls/hr TPN CONT 07/18/16 22:00 07/19/16 21:59 DC 07/18/16 22:03 63 MLS/HR Sodium Bicarbonate 50 meq 1X ONCE 07/16/16 08:45 07/16/16 08:46 DC 07/16/16 08:41 50 MEQ Sodium Chloride (Iv Sodium Chloride 0.9% 1000ml Bag) 1,000 ml @ 75 mls/hr [id number] 07/20/16 11:15 07/23/16 11:50 DC 07/23/16 05:31 75 MLS/HR Sodium Chloride 40 meq/Sodium Acetate 40 meq/ Magnesium Sulfate 8 meq/Calcium Gluconate 5 meq/ Multivitamins 10 ml/Chromium/ Copper/Manganese/ Seleni/Zn 1 ml/ Insulin Human Regular 10 unit/ Total Parenteral Nutrition/Amino Acids/Dextrose/ Fat Emulsion Intravenous 1,512 ml @ 63 mls/hr TPN CONT 07/16/16 22:00 07/17/16 21:59 DC 07/16/16 21:53 63 MLS/HR Sodium Chloride/ Magnesium Sulfate/ Calcium Gluconate/ Multivitamins/ Chromium/Copper/ Manganese/Seleni/ Zn/Total Parenteral Nutrition/Amino Acids/Dextrose (Sodium Chloride/ Infuvite Adult/ Multitrace-5 Conc/ Tpn - Tpn Fluid/ Trophamine/ Dextrose 70%-Water Iv Soln) 1,512 ml @ 63 mls/hr TPN CONT 07/15/16 22:00 07/16/16 21:59 DC 07/15/16 21:27 63 MLS/HR Succinylcholine Chloride (Anectine) 200 mg STK-MED ONCE 07/12/16 18:00 07/13/16 09:05 DC Vasopressin 40 unit/Dextrose 102 ml @ 6 mls/hr CONT PRN 07/16/16 05:00 07/24/16 14:38 DC 07/17/16 13:33 6 MLS/HR Vecuronium Chicken 10 mg 10 mg STK-MED ONCE 07/15/16 11:03 07/15/16 11:04 DC Vecuronium Chicken/Dextrose (Norcuron) 100 ml @ 0 mls/hr CONT PRN 07/12/16 21:00 07/14/16 09:31 DC 07/13/16 20:48 2.58 MLS/HR Vecuronium Chicken (Norcuron Bolus) 10 mg STK-MED ONCE 07/15/16 11:00 07/16/16 08:06 DC Warfarin Sodium (Coumadin Per Pharmacy) 1 each PRN DAILY PRN 07/19/16 09:45 07/26/16 15:34 DC 07/26/16 14:48 1 EACH Warfarin Sodium (Coumadin) 5 mg 1X WARF ONCE 07/26/16 16:00 07/26/16 16:01 Cancel Warfarin Sodium 7.5 mg 7.5 mg 1X WARF ONCE 07/23/16 16:00 07/23/16 16:01 DC 07/23/16 16:53 7.5 MG Lab Laboratory Tests Test 07/27/16 11:16 07/27/16 13:40 07/27/16 17:50 07/27/16 17:56 Glucose (Fingerstick) 264mg/dL (70-99) 379mg/dL (70-99) Potassium Level 4.7mmol/L (3.5-5.1) 4.4mmol/L (3.5-5.1) Phosphorus Level 4.9mg/dL (2.6-4.7) Magnesium Level 2.1mg/dL (1.8-2.4) Test 07/28/16 00:01 07/28/16 00:30 07/28/16 06:02 07/28/16 06:40 Glucose (Fingerstick) 242mg/dL (70-99) 167mg/dL (70-99) Potassium Level 4.0mmol/L (3.5-5.1) 3.7mmol/L (3.5-5.1) Magnesium Level 1.8mg/dL (1.8-2.4) White Blood Count 17.7x10^3/uL (4.0-11.0) Red Blood Count 3.54x10^6/uL (4.30-5.70) Hemoglobin 10.0g/dL (13.0-17.5) Hematocrit 31.3% (39.0-53.0) Mean Corpuscular Volume 89fL (79-100) Mean Corpuscular Hemoglobin 28pg (25-35) Mean Corpuscular Hemoglobin Concent 32g/dL (31-37) Red Cell Distribution Width 15.1% (11.5-14.5) Platelet Count 221x10^3/uL (140-400) Neutrophils (%) (Auto) 82% (31-73) Lymphocytes (%) (Auto) 10% (24-48) Monocytes (%) (Auto) 7% (0-9) Eosinophils (%) (Auto) 1% (0-3) Basophils (%) (Auto) 1% (0-3) Neutrophils # (Auto) 14.4x10^3uL (1.8-7.7) Lymphocytes # (Auto) 1.8x10^3/uL (1.0-4.8) Monocytes # (Auto) 1.3x10^3/uL (0.0-1.1) Eosinophils # (Auto) 0.1x10^3/uL (0.0-0.7) Basophils # (Auto) 0.1x10^3/uL (0.0-0.2) Sodium Level 146mmol/L (136-145) Chloride Level 110mmol/L (98-107) Carbon Dioxide Level 29mmol/L (21-32) Anion Gap 7 (6-14) Blood Urea Nitrogen 37mg/dL (8-26) Creatinine 1.1mg/dL (0.7-1.3) Estimated GFR (Cockcroft-Gault) 79.4 Glucose Level 201mg/dL (70-99) Calcium Level 8.3mg/dL (8.5-10.1) Phosphorus Level 3.5mg/dL (2.6-4.7) FELIBERTO GIL MD Jul 28, 2016 11:09
[2016-07-28 11:45] VITALS: BP 166/86
[2016-07-28] MEDS ORDERED: CONTRAST GIVEN MC PRN (11:45)
[2016-07-28] MEDS ORDERED: IOHEXOL 350 MG/ML 100 ML VIAL. IV ONE (12:00)
--- NOTE | 2016-07-28 12:36 | PDOC ---
Subjective: Subjective: No complaints except wants to drink. Objective: Objective: Seen earlier during downtime. Per RN - no GI concerns. NPO on TPN. Nephrology order CTA. Vital Signs: Vital Signs Date Time Temp Pulse Resp B/P Pulse Ox O2 Delivery O2 Flow Rate FiO2 07/28/16 08:20 6 Room Air 07/28/16 07:30 98.1 67 172/84 98.1 07/28/16 06:58 18 Labs: Laboratory Tests Test 07/27/16 17:56 07/28/16 00:01 07/28/16 06:02 Glucose (Fingerstick) 379mg/dL (70-99) 242mg/dL (70-99) 167mg/dL (70-99) Imaging: CTA A/P PENDING PE: GEN: NAD, up to chair LUNGS: clear anteriorly HEART: RRR ABD: S/ND/NT NEURO/PSYCH: A & O 3 A/P: Dysphagia Resp failure (extubated), s/p arrest, s/p cardiac cath, PE and DVT s/p TPA -on TPN, IV PPI Anemia -- Await further swallow eval. SANDOR SARMIENTO Jul 28, 2016 12:36
--- NOTE | 2016-07-28 13:07 | PDOC ---
PROGRESS NOTES Chief Complaint Chief Complaint Angioedema - angioedema, likely 2/2 to ACEI; self extubated 07/14/16 - resolved - s/p CP arrest (PEA) sec to Multiple bilateral PE (07/15) - Non-occlusive thrombus, R leg (07/15) - COPD exacerbation - Low TSH levels in a critically ill patient - DM2; insulin requiring - Oliguric Hyperkalemic renal failure - Metabolic acidosis s/p arrest - Dyslipidemia on statin - Hypotensive shock, resolved and off pressors - Acute respiratory failure - intubated again (07/15) secondary to code blue ( PEA # 2) STRIDOR TONGUE SWELLING (07/26/16 HTN urgency History of Present Illness History of Present Illness Transferred out of ICU BP remains high 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 CAnt do ADAN inhib bec of angioedema PPlace cant do IV BP meds scale adjuster to re eval again Still has selene, adrian morton Ff up CT scan Dw renal and RN Edna Hold dc for now LTAC screen? if not yet done Vitals Vitals Vital Signs Date Time Temp Pulse Resp B/P Pulse Ox O2 Delivery O2 Flow Rate FiO2 07/28/16 11:45 98.2 64 18 166/86 95 98.2 07/28/16 10:55 Room Air Physical Exam Physical Exam eyes- bilateral periorbital / subconjunctival edema General: Alert, Cooperative, No acute distress Heart: Regular rate, Normal S1, Normal S2, No murmurs, Gallops Lungs: Other (decreased breath sounds bilaterally. ) Abdomen: Normal bowel sounds, Soft, No tenderness, No hepatosplenomegaly, No masses Extremities: No clubbing, No cyanosis, No edema, Normal pulses, No tenderness/ swelling Skin: No rashes, Other (dry mucosal membranes ) Labs LABS Laboratory Tests Test 07/27/16 13:40 07/27/16 17:50 07/27/16 17:56 07/28/16 00:01 Potassium Level 4.7mmol/L (3.5-5.1) 4.4mmol/L (3.5-5.1) Phosphorus Level 4.9mg/dL (2.6-4.7) Magnesium Level 2.1mg/dL (1.8-2.4) Glucose (Fingerstick) 379mg/dL (70-99) 242mg/dL (70-99) Test 07/28/16 00:30 07/28/16 06:02 07/28/16 06:40 07/28/16 12:42 Potassium Level 4.0mmol/L (3.5-5.1) 3.7mmol/L (3.5-5.1) Magnesium Level 1.8mg/dL (1.8-2.4) Glucose (Fingerstick) 167mg/dL (70-99) 221mg/dL (70-99) White Blood Count 17.7x10^3/uL (4.0-11.0) Red Blood Count 3.54x10^6/uL (4.30-5.70) Hemoglobin 10.0g/dL (13.0-17.5) Hematocrit 31.3% (39.0-53.0) Mean Corpuscular Volume 89fL (79-100) Mean Corpuscular Hemoglobin 28pg (25-35) Mean Corpuscular Hemoglobin Concent 32g/dL (31-37) Red Cell Distribution Width 15.1% (11.5-14.5) Platelet Count 221x10^3/uL (140-400) Neutrophils (%) (Auto) 82% (31-73) Lymphocytes (%) (Auto) 10% (24-48) Monocytes (%) (Auto) 7% (0-9) Eosinophils (%) (Auto) 1% (0-3) Basophils (%) (Auto) 1% (0-3) Neutrophils # (Auto) 14.4x10^3uL (1.8-7.7) Lymphocytes # (Auto) 1.8x10^3/uL (1.0-4.8) Monocytes # (Auto) 1.3x10^3/uL (0.0-1.1) Eosinophils # (Auto) 0.1x10^3/uL (0.0-0.7) Basophils # (Auto) 0.1x10^3/uL (0.0-0.2) Sodium Level 146mmol/L (136-145) Chloride Level 110mmol/L (98-107) Carbon Dioxide Level 29mmol/L (21-32) Anion Gap 7 (6-14) Blood Urea Nitrogen 37mg/dL (8-26) Creatinine 1.1mg/dL (0.7-1.3) Estimated GFR (Cockcroft-Gault) 79.4 Glucose Level 201mg/dL (70-99) Calcium Level 8.3mg/dL (8.5-10.1) Phosphorus Level 3.5mg/dL (2.6-4.7) Review of Systems Review of Systems denies all 14 pt - but limited historian Assessment and Plan Assessmemt and Plan Problems Medical Problems: (1) COPD exacerbation Status: Acute (2) Hyperglycemia Status: Acute Problems: Comment Review of Relevant I have reviewed the following items valerie (where applicable) has been applied. Labs Laboratory Tests Test 07/26/16 13:20 07/26/16 13:21 07/26/16 13:29 07/26/16 13:30 Glucose (Fingerstick) 36mg/dL (70-99) 39mg/dL (70-99) 197mg/dL (70-99) Prothrombin Time 24.7SEC (11.7-14.0) Prothromb Time International Ratio 2.4 (0.8-1.1) Test 07/26/16 17:14 07/26/16 18:37 07/26/16 21:03 07/27/16 00:35 Glucose (Fingerstick) 87mg/dL (70-99) 117mg/dL (70-99) 155mg/dL (70-99) 221mg/dL (70-99) Test 07/27/16 05:46 07/27/16 05:50 07/27/16 11:16 07/27/16 13:40 Glucose (Fingerstick) 217mg/dL (70-99) 264mg/dL (70-99) White Blood Count 15.1x10^3/uL (4.0-11.0) Red Blood Count 3.93x10^6/uL (4.30-5.70) Hemoglobin 11.0g/dL (13.0-17.5) Hematocrit 35.1% (39.0-53.0) Mean Corpuscular Volume 89fL (79-100) Mean Corpuscular Hemoglobin 28pg (25-35) Mean Corpuscular Hemoglobin Concent 31g/dL (31-37) Red Cell Distribution Width 15.1% (11.5-14.5) Platelet Count 241x10^3/uL (140-400) Neutrophils (%) (Auto) 91% (31-73) Lymphocytes (%) (Auto) 4% (24-48) Monocytes (%) (Auto) 5% (0-9) Eosinophils (%) (Auto) 0% (0-3) Basophils (%) (Auto) 0% (0-3) Neutrophils # (Auto) 13.8x10^3uL (1.8-7.7) Lymphocytes # (Auto) 0.5x10^3/uL (1.0-4.8) Monocytes # (Auto) 0.7x10^3/uL (0.0-1.1) Eosinophils # (Auto) 0.0x10^3/uL (0.0-0.7) Basophils # (Auto) 0.0x10^3/uL (0.0-0.2) Sodium Level 147mmol/L (136-145) Potassium Level 4.9mmol/L (3.5-5.1) 4.7mmol/L (3.5-5.1) Chloride Level 109mmol/L (98-107) Carbon Dioxide Level 25mmol/L (21-32) Anion Gap 13 (6-14) Blood Urea Nitrogen 39mg/dL (8-26) Creatinine 1.1mg/dL (0.7-1.3) Estimated GFR (Cockcroft-Gault) 79.4 Glucose Level 262mg/dL (70-99) Calcium Level 8.5mg/dL (8.5-10.1) Phosphorus Level 4.9mg/dL (2.6-4.7) Magnesium Level 2.1mg/dL (1.8-2.4) Test 07/27/16 17:50 07/27/16 17:56 07/28/16 00:01 07/28/16 00:30 Potassium Level 4.4mmol/L (3.5-5.1) 4.0mmol/L (3.5-5.1) Glucose (Fingerstick) 379mg/dL (70-99) 242mg/dL (70-99) Magnesium Level 1.8mg/dL (1.8-2.4) Test 07/28/16 06:02 07/28/16 06:40 07/28/16 12:42 Glucose (Fingerstick) 167mg/dL (70-99) 221mg/dL (70-99) White Blood Count 17.7x10^3/uL (4.0-11.0) Red Blood Count 3.54x10^6/uL (4.30-5.70) Hemoglobin 10.0g/dL (13.0-17.5) Hematocrit 31.3% (39.0-53.0) Mean Corpuscular Volume 89fL (79-100) Mean Corpuscular Hemoglobin 28pg (25-35) Mean Corpuscular Hemoglobin Concent 32g/dL (31-37) Red Cell Distribution Width 15.1% (11.5-14.5) Platelet Count 221x10^3/uL (140-400) Neutrophils (%) (Auto) 82% (31-73) Lymphocytes (%) (Auto) 10% (24-48) Monocytes (%) (Auto) 7% (0-9) Eosinophils (%) (Auto) 1% (0-3) Basophils (%) (Auto) 1% (0-3) Neutrophils # (Auto) 14.4x10^3uL (1.8-7.7) Lymphocytes # (Auto) 1.8x10^3/uL (1.0-4.8) Monocytes # (Auto) 1.3x10^3/uL (0.0-1.1) Eosinophils # (Auto) 0.1x10^3/uL (0.0-0.7) Basophils # (Auto) 0.1x10^3/uL (0.0-0.2) Sodium Level 146mmol/L (136-145) Potassium Level 3.7mmol/L (3.5-5.1) Chloride Level 110mmol/L (98-107) Carbon Dioxide Level 29mmol/L (21-32) Anion Gap 7 (6-14) Blood Urea Nitrogen 37mg/dL (8-26) Creatinine 1.1mg/dL (0.7-1.3) Estimated GFR (Cockcroft-Gault) 79.4 Glucose Level 201mg/dL (70-99) Calcium Level 8.3mg/dL (8.5-10.1) Phosphorus Level 3.5mg/dL (2.6-4.7) Laboratory Tests Test 07/27/16 13:40 07/27/16 17:50 07/27/16 17:56 07/28/16 00:01 Potassium Level 4.7mmol/L (3.5-5.1) 4.4mmol/L (3.5-5.1) Phosphorus Level 4.9mg/dL (2.6-4.7) Magnesium Level 2.1mg/dL (1.8-2.4) Glucose (Fingerstick) 379mg/dL (70-99) 242mg/dL (70-99) Test 07/28/16 00:30 07/28/16 06:02 07/28/16 06:40 07/28/16 12:42 Potassium Level 4.0mmol/L (3.5-5.1) 3.7mmol/L (3.5-5.1) Magnesium Level 1.8mg/dL (1.8-2.4) Glucose (Fingerstick) 167mg/dL (70-99) 221mg/dL (70-99) White Blood Count 17.7x10^3/uL (4.0-11.0) Red Blood Count 3.54x10^6/uL (4.30-5.70) Hemoglobin 10.0g/dL (13.0-17.5) Hematocrit 31.3% (39.0-53.0) Mean Corpuscular Volume 89fL (79-100) Mean Corpuscular Hemoglobin 28pg (25-35) Mean Corpuscular Hemoglobin Concent 32g/dL (31-37) Red Cell Distribution Width 15.1% (11.5-14.5) Platelet Count 221x10^3/uL (140-400) Neutrophils (%) (Auto) 82% (31-73) Lymphocytes (%) (Auto) 10% (24-48) Monocytes (%) (Auto) 7% (0-9) Eosinophils (%) (Auto) 1% (0-3) Basophils (%) (Auto) 1% (0-3) Neutrophils # (Auto) 14.4x10^3uL (1.8-7.7) Lymphocytes # (Auto) 1.8x10^3/uL (1.0-4.8) Monocytes # (Auto) 1.3x10^3/uL (0.0-1.1) Eosinophils # (Auto) 0.1x10^3/uL (0.0-0.7) Basophils # (Auto) 0.1x10^3/uL (0.0-0.2) Sodium Level 146mmol/L (136-145) Chloride Level 110mmol/L (98-107) Carbon Dioxide Level 29mmol/L (21-32) Anion Gap 7 (6-14) Blood Urea Nitrogen 37mg/dL (8-26) Creatinine 1.1mg/dL (0.7-1.3) Estimated GFR (Cockcroft-Gault) 79.4 Glucose Level 201mg/dL (70-99) Calcium Level 8.3mg/dL (8.5-10.1) Phosphorus Level 3.5mg/dL (2.6-4.7) Microbiology 07/15/16 Blood Culture - Final, Complete NO GROWTH AFTER 5 DAYS 07/14/16 Urine Culture - Final, Complete 07/14/16 Urine Culture Result 1 (MARÍA) - Final, Complete 07/14/16 Urine Culture Result 2 (MARÍA) - Final, Complete 07/14/16 Antimicrobic Susceptibility - Final, Complete Medications Current Medications Albuterol/ Ipratropium (Duoneb) 6 ml 1X ONCE NEB Last administered on 12:34; Start 07/12/16 at 12:30; Stop 07/12/16 at 12:31; Status DC Prednisone 60 mg 60 mg 1X ONCE PO Last administered on 07/12/16 12:40; Start 07/12/16 at 12:30; Stop 07/12/16 at 12:31; Status DC Sodium Chloride (Iv Sodium Chloride 0.9% 1000ml Bag) 1,000 ml @ 1,000 mls/hr 1X ONCE IV Last administered on 07/12/16 13:12; Start 07/12/16 at 13:15; Stop 07/12/16 at 14:14; Status DC Insulin Human Regular (Novolin R Vial) 10 unit 1X ONCE IV Last administered on 07/12/16 13:16; Start 07/12/16 at 13:15; Stop 07/12/16 at 13:16; Status DC Diphenhydramine HCl (Benadryl) 50 mg STK-MED ONCE .ROUTE ; Start 07/12/16 at 14: 55; Stop 07/12/16 at 14:56; Status DC Diphenhydramine HCl (Benadryl) 50 mg 1X ONCE IVP Last administered on 15:15; Start 07/12/16 at 15:15; Stop 07/12/16 at 15:16; Status DC Atorvastatin Calcium (Lipitor) 40 mg HS PO Last administered on 07/23/16 20:45 ; Start 07/12/16 at 21:00; Stop 07/24/16 at 13:39; Status DC Diltiazem HCl (Cardizem 24hr Cd) 240 mg DAILY PO ; Start 07/12/16 at 16:30; Stop 07/13/16 at 17:18; Status DC Insulin Aspart (Novolog) 10 units TIDAC SQ ; Start 07/12/16 at 16:30; Stop 07/12 at 16:30; Status DC Insulin Detemir (Levemir) 20 units QHS SQ ; Start 07/12/16 at 21:00; Stop at 21:00; Status DC Promethazine HCl/ Codeine (Phenergan With Codeine) 5 ml QID PO ; Start 07/12/16 at 17:00; Stop 07/13/16 at 17:18; Status DC Non-Formulary Medication 2 puff BID IH ; Start 07/12/16 at 21:00; Status UNV Non-Formulary Medication 2.5 gm DAILY IH ; Start 07/13/16 at 09:00; Status UNV Budesonide (Pulmicort) 0.5 mg RTBID NEB Last administered on 07/13/16 07:30; Start 07/12/16 at 20:00; Stop 07/13/16 at 11:27; Status DC Albuterol/ Ipratropium (Duoneb) 3 ml RTQID NEB Last administered on 07/16/16 07:47; Start 07/12/16 at 20:00; Stop 07/16/16 at 08:38; Status DC Methylprednisolone Sodium Succinate (Solu-Medrol 40mg Vial) 60 mg 1X ONCE IV Last administered on 07/12/16 16:06; Start 07/12/16 at 16:30; Stop 07/12/16 at 16:31; Status DC Methylprednisolone Sodium Succinate (Solu-Medrol 40mg Vial) 60 mg DAILY IV ; Start 07/13/16 at 09:00; Stop 07/13/16 at 09:00; Status DC Pantoprazole Sodium (Protonix Vial) 40 mg DAILY IVP Last administered on 08:43; Start 07/13/16 at 09:00; Stop 07/17/16 at 20:37; Status DC Diphenhydramine HCl 25 mg 25 mg PRN Q6HRS PRN IVP ANAPHYLAXIS Last administered on 07/12/16 16:06; Start 07/12/16 at 16:00; Stop 07/23/16 at 04:47 ; Status DC Sodium Chloride (Iv Sodium Chloride 0.9% 1000ml Bag) 1,000 ml @ 150 mls/hr Q6H40M IV Last administered on 07/14/16 01:21; Start 07/12/16 at 16:30; Stop 07/14/16 at 09:31; Status DC Albuterol/ Ipratropium (Duoneb) 3 ml QID NEB ; Start 07/12/16 at 17:00; Status UNV Albuterol Sulfate (Ventolin Neb Soln) 2.5 mg PRN Q2HR PRN NEB SHORTNESS OF BREATH Last administered on 07/28/16 03:33; Start 07/12/16 at 16:00 Insulin Aspart (Novolog) 0-9 UNITS QID SQ Last administered on 07/14/16 08:37 ; Start 07/12/16 at 17:00; Stop 07/14/16 at 09:31; Status DC Dextrose 12.5 gm PRN Q15MIN PRN IV SEE COMMENTS; Start 07/12/16 at 16:00; Stop 07/15/16 at 12:46; Status DC Insulin Detemir (Levemir) 15 units QHS SQ ; Start 07/12/16 at 21:00; Stop at 21:00; Status DC Enoxaparin Sodium (Lovenox 40mg Syringe) 40 mg DAILY SQ Last administered on 08:54; Start 07/12/16 at 16:30; Stop 07/15/16 at 14:28; Status DC Insulin Detemir (Levemir) 20 units QHS SQ Last administered on 07/12/16 23:49 ; Start 07/12/16 at 21:00; Stop 07/13/16 at 15:18; Status DC Succinylcholine Chloride 200 mg 200 mg STK-MED ONCE .ROUTE ; Start 07/12/16 at 17:46; Stop 07/12/16 at 17:47; Status DC Propofol (Diprivan) 100 ml @ As Directed STK-MED ONCE IV ; Start 07/12/16 at 17 :46; Stop 07/12/16 at 17:47; Status DC Lidocaine HCl 100 mg STK-MED ONCE .ROUTE ; Start 07/12/16 at 18:02; Stop at 18:03; Status DC Ketamine HCl 500 mg 1X ONCE IV ; Start 07/12/16 at 18:30; Stop 07/12/16 at 18: 31; Status DC Midazolam HCl (Versed) 5 mg STK-MED ONCE .ROUTE ; Start 07/12/16 at 18:14; Stop 07/12/16 at 18:15; Status DC Midazolam HCl (Versed) 2 mg 1X ONCE IV ; Start 07/12/16 at 18:30; Stop at 18:31; Status DC Glycopyrrolate (Robinul) 1 mg 1X ONCE IV ; Start 07/12/16 at 18:30; Stop at 18:31; Status DC Oxymetazoline HCl (Afrin) 2 spray 1X ONCE NS ; Start 07/12/16 at 18:30; Stop at 18:31; Status DC Lidocaine HCl 30 ml STK-MED ONCE .ROUTE ; Start 07/12/16 at 18:19; Stop at 18:20; Status DC Vecuronium [place] 6 mg 6 mg PRN Q4HRS PRN IV ANXIETY / AGITATION Last administered on 07/12/16 19:55; Start 07/12/16 at 19:00; Stop 07/15/16 at 07:58 ; Status DC Propofol (Diprivan) 100 ml @ 0 mls/hr CONT PRN IV SEE I/O RECORD Last administered on 07/14/16 13:42; Start 07/12/16 at 19:00; Stop 07/15/16 at 07:58 ; Status DC Insulin Aspart 10 units 10 units 1X ONCE SQ Last administered on 07/12/16 19: 41; Start 07/12/16 at 19:45; Stop 07/12/16 at 19:46; Status DC Vecuronium [place] 100 mg/ Dextrose 100 ml @ 0 mls/hr CONT PRN IV SEE I/O RECORD Last administered on 07/13/16 20:48; Start 07/12/16 at 21:00; Stop 07/14 at 09:31; Status DC Fentanyl Citrate (Fentanyl 600 Mcg/30 ml SURGERY TEACHER) 30 ml @ 0 mls/hr CONT PRN IV PROTOCOL Last administered on 07/14/16 09:33; Start 07/12/16 at 22:00; Stop at 07:58; Status DC Chlorhexidine Gluconate (Peridex) 15 ml BID MM Last administered on 07/23/16 08:22; Start 07/13/16 at 09:00; Stop 07/23/16 at 09:42; Status DC Methylprednisolone Sodium Succinate (Solu-Medrol 125mg Vial) 125 mg BID IV Last administered on 07/14/16 21:02; Start 07/13/16 at 09:00; Stop 07/15/16 at 07:58; Status DC Rocuronium [place] (Zemuron) 50 mg STK-MED ONCE .ROUTE ; Start 07/12/16 at 15:00 ; Stop 07/13/16 at 08:54; Status DC Glycopyrrolate (Robinul) 1 mg STK-MED ONCE .ROUTE ; Start 07/12/16 at 15:00; Stop 07/13/16 at 08:54; Status DC Lidocaine HCl 30 ml STK-MED ONCE .ROUTE ; Start 07/12/16 at 18:00; Stop at 09:05; Status DC Midazolam HCl (Versed) 5 mg STK-MED ONCE .ROUTE ; Start 07/12/16 at 18:00; Stop 07/13/16 at 09:05; Status DC Propofol (Diprivan) 1,000 mg STK-MED ONCE IV ; Start 07/12/16 at 18:00; Stop at 09:05; Status DC Succinylcholine Chloride (Anectine) 200 mg STK-MED ONCE .ROUTE ; Start 07/12/16 at 18:00; Stop 07/13/16 at 09:05; Status DC Multi-Ingred Cream/Lotion/Oil/ Oint (Artificial Tears Eye Oint) 1 margie PRN Q1HR PRN OU DRY EYE Last administered on 07/13/16 15:45; Start 07/13/16 at 11:00 Ketamine HCl 500 mg STK-MED ONCE .ROUTE ; Start 07/12/16 at 18:30; Stop at 12:05; Status DC Insulin Aspart (Novolog) 10 units 1X STAT SQ Last administered on 07/13/16 12 :36; Start 07/13/16 at 12:17; Stop 07/13/16 at 12:20; Status DC Insulin Aspart (Novolog) 10 units 1X ONCE SQ Last administered on 07/13/16 14 :31; Start 07/13/16 at 14:30; Stop 07/13/16 at 14:31; Status DC Insulin Detemir (Levemir) 40 units QHS SQ Last administered on 07/13/16 20:50 ; Start 07/13/16 at 21:00; Stop 07/14/16 at 09:31; Status DC Benzocaine (Hurricaine One) 1 spray STK-MED ONCE .ROUTE ; Start 07/12/16 at 12: 00; Stop 07/13/16 at 16:00; Status DC Lidocaine HCl 5 margie 5 margie STK-MED ONCE TP ; Start 07/12/16 at 12:00; Stop at 16:00; Status DC Insulin Human Regular/Sodium Chloride (Novolin R Vial/ Iv Normal Saline 150ml) 151.5 ml @ 0 mls/hr CONT PRN IV SEE I/O RECORD Last administered on 07/14/16 10:01; Start 07/14/16 at 09:30; Stop 07/15/16 at 07:58; Status DC Info 1 each 1 each PRN DAILY PRN MC SEE COMMENTS Last administered on 08:27; Start 07/14/16 at 09:30; Stop 07/19/16 at 16:30; Status DC Magnesium Sulfate/ Dextrose 50 ml @ 25 mls/hr PRN DAILY PRN IV for Mag < 1.7 on am labs; Start 07/14/16 at 11:15; Stop 07/15/16 at 07:58; Status DC Sodium Chloride 500 ml @ 500 mls/hr QID PRN IV UO< 30cc/hr over previous 6hrs ; Start 07/14/16 at 11:15; Stop 07/14/16 at 11:26; Status DC Sodium Chloride 500 ml @ 500 mls/hr PRN QID PRN IV UO< 30cc/hr over previous 6hrs Last administered on 07/16/16 10:00; Start 07/14/16 at 11:26; Stop at 09:07; Status DC Ceftriaxone Sodium 1 gm/ Sodium Chloride 50 ml @ 100 mls/hr Q24H IV Last administered on 07/19/16 12:25; Start 07/14/16 at 12:00; Stop 07/20/16 at 12:29 ; Status DC Sodium Chloride/ Magnesium Sulfate/ Calcium Gluconate/ Multivitamins/ Chromium/ Copper/ Manganese/Seleni/ Zn/Total Parenteral Nutrition/Amino Acids/Dextrose ( Sodium Chloride/ Infuvite Adult/ Multitrace-5 Conc/ Tpn - Tpn Fluid/ Trophamine / Dextrose 70%-Water Iv Soln) 1,512 ml @ 63 mls/hr TPN CONT IV Last administered on 07/14/16 22:29; Start 07/14/16 at 22:00; Stop 07/15/16 at 21:59 ; Status DC Hydralazine HCl (Apresoline) 10 mg PRN Q4HRS PRN IVP ELEVATED BP, SEE COMMENTS Last administered on 07/24/16 13:01; Start 07/14/16 at 22:30; Stop 07/24/16 at 14 :38; Status DC Methylprednisolone Sodium Succinate (Solu-Medrol 125mg Vial) 125 mg DAILY IV Last administered on 07/15/16 08:55; Start 07/15/16 at 09:00; Stop 07/16/16 at 08:35; Status DC Insulin Aspart (Novolog) 0-9 UNITS TIDWMEALS SQ Last administered on 07/15/16 16:16; Start 07/15/16 at 08:00; Stop 07/16/16 at 07:16; Status DC Dextrose 12.5 gm PRN Q15MIN PRN IV SEE COMMENTS; Start 07/15/16 at 08:00; Stop 07/19/16 at 10:53; Status DC Insulin Detemir (Levemir) 20 units QHS SQ Last administered on 07/15/16 21:48 ; Start 07/15/16 at 21:00; Stop 07/16/16 at 07:16; Status DC Insulin Aspart (Novolog) 10 units TIDAC SQ ; Start 07/15/16 at 11:30; Stop 07/16 at 07:16; Status DC Sodium Polystyrene Sulfonate (Kayexalate) 30 gm 1X ONCE PO ; Start 07/15/16 at 08:00; Stop 07/15/16 at 08:08; Status DC Hydrochlorothiazide (Microzide) 12.5 mg DAILY PO ; Start 07/15/16 at 09:00; Stop 07/16/16 at 07:39; Status DC Isosorbide Mononitrate (Imdur) 120 mg DAILY PO ; Start 07/15/16 at 09:00; Stop 07/15/16 at 09:00; Status DC Diltiazem HCl (Cardizem 24hr Cd) 240 mg DAILY PO ; Start 07/15/16 at 09:00; Stop 07/16/16 at 07:39; Status DC Guaifenesin (Mucinex) 600 mg BID PO ; Start 07/15/16 at 09:00; Stop 07/16/16 at 07:39; Status DC Mupirocin (Bactroban) 1 margie BID NS Last administered on 07/28/16 08:32; Start 07/15/16 at 09:00 Isosorbide Mononitrate (Imdur) 120 mg DAILY PO ; Start 07/15/16 at 09:00; Stop 07/16/16 at 07:39; Status DC Sodium Bicarbonate 50 meq 1X ONCE IV Last administered on 07/15/16 15:22; Start 07/15/16 at 10:45; Stop 07/15/16 at 10:46; Status DC Sodium Bicarbonate 50 meq 50 meq STK-MED ONCE .ROUTE ; Start 07/15/16 at 10:34; Stop 07/15/16 at 10:35; Status DC Dopamine HCl/ Dextrose 250 ml @ As Directed STK-MED ONCE IV ; Start 07/15/16 at 10:37; Stop 07/15/16 at 10:38; Status DC Midazolam HCl (Versed) 5 mg STK-MED ONCE .ROUTE ; Start 07/15/16 at 10:41; Stop 07/15/16 at 10:42; Status DC Iohexol 100 ml 100 ml STK-MED ONCE .ROUTE ; Start 07/15/16 at 10:45; Stop at 10:46; Status DC Heparin Sodium/ Sodium Chloride 1,500 ml @ As Directed STK-MED ONCE .ROUTE ; Start 07/15/16 at 10:45; Stop 07/15/16 at 10:46; Status DC Lidocaine HCl 20 ml 20 ml STK-MED ONCE .ROUTE ; Start 07/15/16 at 10:45; Stop at 10:46; Status DC Dopamine HCl/ Dextrose 250 ml @ 16.255 mls/ hr CONT PRN IV SEE I/O RECORD Last administered on 07/16/16 23:10; Start 07/15/16 at 11:00; Stop 07/26/16 at 09:04; Status DC Sodium Chloride 1,000 ml @ 1,000 mls/hr 1X ONCE IV Last administered on 11:00; Start 07/15/16 at 11:00; Stop 07/15/16 at 11:59; Status DC Norepinephrine Bitartrate/Sodium Chloride (Levophed Vial/ Iv Sodium Chloride 0.9 % 250ml) 258 ml @ 0 mls/hr CONT PRN IV SEE I/O RECORD Last administered on 07/17 00:51; Start 07/15/16 at 11:00; Stop 07/26/16 at 09:04; Status DC Midazolam HCl (Versed) 5 mg STK-MED ONCE .ROUTE ; Start 07/15/16 at 10:54; Stop 07/15/16 at 10:55; Status DC Fentanyl Citrate (Fentanyl 2ml Vial) 100 mcg STK-MED ONCE .ROUTE ; Start at 11:02; Stop 07/15/16 at 11:03; Status DC Vecuronium [place] 10 mg 10 mg STK-MED ONCE IV ; Start 07/15/16 at 11:03; Stop 07/15/16 at 11:04; Status DC Midazolam HCl (Versed 100mg/ 100ml Premix) 100 ml @ As Directed STK-MED ONCE IV ; Start 07/15/16 at 11:03; Stop 07/15/16 at 11:04; Status DC Iohexol (Omnipaque 300 Mg/ml) 112 ml 1X ONCE IART Last administered on 11:56; Start 07/15/16 at 12:00; Stop 07/15/16 at 12:01; Status DC Lidocaine HCl 10 ml 1X ONCE IJ Last administered on 07/15/16 11:57; Start at 12:00; Stop 07/15/16 at 12:01; Status DC Heparin Sodium/ Sodium Chloride 1000 unit 1,000 unit 1X ONCE IART ; Start 07/15 at 12:00; Stop 07/15/16 at 12:01; Status DC Sodium Chloride/ Magnesium Sulfate/ Calcium Gluconate/ Multivitamins/ Chromium/ Copper/ Manganese/Seleni/ Zn/Total Parenteral Nutrition/Amino Acids/Dextrose ( Sodium Chloride/ Infuvite Adult/ Multitrace-5 Conc/ Tpn - Tpn Fluid/ Trophamine / Dextrose 70%-Water Iv Soln) 1,512 ml @ 63 mls/hr TPN CONT IV Last administered on 07/15/16 21:27; Start 07/15/16 at 22:00; Stop 07/16/16 at 21:59 ; Status DC Iohexol (Omnipaque 300 Mg/ml) 75 ml 1X ONCE IV Last administered on 07/15/16 13:43; Start 07/15/16 at 13:15; Stop 07/15/16 at 13:16; Status DC Info (Do NOT chart on this entry -- for MONITORING) 1 each PRN DAILY PRN MC SEE COMMENTS; Start 07/15/16 at 13:15; Stop 07/17/16 at 13:14; Status DC Heparin Sodium (Porcine) 7000 unit 7,000 unit 1X ONCE IV Last administered on 07/15/16 15:27; Start 07/15/16 at 14:45; Stop 07/15/16 at 14:46; Status DC Heparin Sodium/ Dextrose 500 ml @ 0 mls/hr CONT PRN IV SEE I/O RECORD Last administered on 07/17/16 18:41; Start 07/15/16 at 14:30; Stop 07/18/16 at 10:21 ; Status DC Heparin Sodium (Porcine) 2,600 unit PRN Q6HRS PRN IV FOR UFH LEVEL LESS THAN 0.2; Start 07/15/16 at 14:30; Stop 07/18/16 at 10:21; Status DC Heparin Sodium (Porcine) 1,300 unit PRN Q6HRS PRN IV FOR UFH LEVEL 0.2 - 0.29; Start 07/15/16 at 14:30; Stop 07/18/16 at 10:21; Status DC Warfarin Sodium (Coumadin Per Pharmacy) 1 each PRN DAILY PRN MC PER PROTOCOL; Start 07/15/16 at 14:30; Stop 07/15/16 at 14:30; Status DC Sodium Bicarbonate 50 meq 50 meq 1X ONCE IV Last administered on 07/15/16 16: 30; Start 07/15/16 at 16:30; Stop 07/15/16 at 16:34; Status DC Alteplase, Recombinant (Activase) 100 ml @ 50 mls/hr 1X ONCE IV Last administered on 07/15/16 17:30; Start 07/15/16 at 17:30; Stop 07/15/16 at 19:29 ; Status DC Fentanyl Citrate (Fentanyl 2ml Vial) 25 mcg PRN Q1HR PRN IV COMM; Start at 22:30; Stop 07/16/16 at 07:17; Status DC Fentanyl Citrate (Fentanyl 2ml Vial) 50 mcg PRN Q1HR PRN IV COMM Last administered on 07/16/16 05:30; Start 07/15/16 at 22:30; Stop 07/16/16 at 07:17 ; Status DC Scopolamine (Transderm-Scop) 1 patch Q3DAYS TD Last administered on 07/27/16 09 :48; Start 07/18/16 at 09:00 Scopolamine 1 patch 1 patch ONCE ONCE TD ; Start 07/15/16 at 23:30; Stop at 23:31; Status DC Sodium Chloride 1,000 ml @ 1,000 mls/hr 1X ONCE IV Last administered on 02:38; Start 07/16/16 at 01:00; Stop 07/16/16 at 01:59; Status DC Midazolam HCl 100 ml @ As Directed STK-MED ONCE IV ; Start 07/16/16 at 01:00; Stop 07/16/16 at 01:01; Status DC Midazolam HCl 100 ml @ 0 mls/hr CONT PRN IV SEE I/O RECORD Last administered on 07/19/16 07:52; Start 07/16/16 at 01:15; Stop 07/26/16 at 09:04; Status DC Vasopressin 40 unit/Dextrose 102 ml @ 6 mls/hr CONT PRN IV SEE I/O RECORD Last administered on 07/17/16 13:33; Start 07/16/16 at 05:00; Stop 07/24/16 at 14:38 ; Status DC Insulin Human Regular 150 unit/ Sodium Chloride 151.5 ml @ 0 mls/hr CONT PRN IV SEE I/O RECORD Last administered on 07/17/16 02:26; Start 07/16/16 at 05:00 ; Stop 07/17/16 at 10:10; Status DC Fentanyl Citrate (Fentanyl 600 Mcg/30 ml [employer]) 30 ml @ 0 mls/hr CONT PRN IV PROTOCOL Last administered on 07/25/16 17:57; Start 07/16/16 at 07:15; Stop 07/26 at 09:04; Status DC Vecuronium [place] (Norcuron Bolus) 10 mg STK-MED ONCE IV ; Start 07/15/16 at 11 :00; Stop 07/16/16 at 08:06; Status DC Fentanyl Citrate (Fentanyl 2ml Vial) 100 mcg STK-MED ONCE .ROUTE ; Start at 11:00; Stop 07/16/16 at 08:06; Status DC Midazolam HCl (Versed) 10 mg STK-MED ONCE .ROUTE ; Start 07/15/16 at 11:00; Stop 07/16/16 at 08:06; Status DC Dopamine HCl/ Dextrose 400 mg STK-MED ONCE IV ; Start 07/15/16 at 11:00; Stop at 08:06; Status DC Sodium Bicarbonate 50 meq STK-MED ONCE .ROUTE ; Start 07/15/16 at 11:00; Stop at 08:06; Status DC Hydrocortisone Sodium Succinate (Solu-Cortef) 100 mg Q8HRS IV Last administered on 07/19/16 05:50; Start 07/16/16 at 09:00; Stop 07/19/16 at 09:30 ; Status DC Sodium Polystyrene Sulfonate 30 gm 30 gm 1X ONCE PO Last administered on 08:41; Start 07/16/16 at 08:30; Stop 07/16/16 at 08:34; Status DC Albumin Human (Plasmanate) 500 ml @ 125 mls/hr PRN Q6HRS PRN IV for CVP < 10; MAP < 65 Last administered on 07/17/16 08:12; Start 07/16/16 at 08:30; Stop 07/24/16 at 14:38; Status DC Sodium Bicarbonate 50 meq 1X ONCE IV Last administered on 07/16/16 08:41; Start 07/16/16 at 08:45; Stop 07/16/16 at 08:46; Status DC Info (Anti-Coagulation Monitoring By Pharmacy) 1 each PRN DAILY PRN MC SEE COMMENTS; Start 07/16/16 at 08:45; Status Cancel Ipratropium [place] (Atrovent) 0.5 mg RTQID NEB Last administered on 07/28/16 12:00; Start 07/16/16 at 12:00 Lidocaine/Sodium Bicarbonate (Buffered Lidocaine 1%) 3 ml 1X ONCE IJ Last administered on 07/16/16 10:43; Start 07/16/16 at 09:15; Stop 07/16/16 at 09:16 ; Status DC Heparin Sodium/ Sodium Chloride 60 unit 1X ONCE IV Last administered on 10:44; Start 07/16/16 at 09:15; Stop 07/16/16 at 09:16; Status DC Heparin Sodium (Porcine) 2500 unit 2,500 unit 1X ONCE INT CAT Last administered on 07/16/16 10:44; Start 07/16/16 at 09:15; Stop 07/16/16 at 09:16 ; Status DC Sodium Chloride 40 meq/Sodium Acetate 40 meq/ Magnesium Sulfate 8 meq/Calcium Gluconate 5 meq/ Multivitamins 10 ml/Chromium/ Copper/Manganese/ Seleni/Zn 1 ml / Insulin Human Regular 10 unit/ Total Parenteral Nutrition/Amino Acids/Dextrose / Fat Emulsion Intravenous 1,512 ml @ 63 mls/hr TPN CONT IV Last administered on 07/16/16 21:53; Start 07/16/16 at 22:00; Stop 07/17/16 at 21:59 ; Status DC Pantoprazole Sodium 80 mg/ Sodium Chloride 100 ml @ 10 mls/hr Q10H IV Last administered on 07/21/16 10:10; Start 07/17/16 at 06:45; Stop 07/21/16 at 12:21 ; Status DC Sodium Acetate/ Potassium Acetate/ Magnesium Sulfate/ Calcium Gluconate/ Multivitamins/ Chromium/Copper/ Manganese/Seleni/ Zn/Insulin Human Regular/ Total Parenteral Nutrition/Amino Acids/Dextrose/ Fat Emulsion Intravenous ( Calcium Gluconate/ Infuvite Adult/ Multitrace-5 Conc/ Novolin R Vi... 1,512 ml @ 63 mls/hr TPN CONT IV Last administered on 07/17/16 21:49; Start 07/17/16 at 22:00; Stop 07/18/16 at 21:59; Status DC Insulin Detemir (Levemir) 25 units BID SQ Last administered on 07/17/16 20:51 ; Start 07/17/16 at 10:30; Stop 07/18/16 at 08:12; Status DC Insulin Aspart (Novolog) 0-9 UNITS TIDWMEALS SQ Last administered on 07/18/16 10:03; Start 07/17/16 at 12:00; Stop 07/18/16 at 11:55; Status DC Dextrose 12.5 gm PRN Q15MIN PRN IV SEE COMMENTS; Start 07/17/16 at 10:15; Status UNV Iohexol (Omnipaque 300 Mg/ml) 100 ml STK-MED ONCE .ROUTE ; Start 07/17/16 at 10: 45; Stop 07/17/16 at 10:46; Status DC Lidocaine/Sodium Bicarbonate 20 ml 20 ml STK-MED ONCE IJ ; Start 07/17/16 at 10: 45; Stop 07/17/16 at 10:46; Status DC Heparin Sodium/ Sodium Chloride 500 ml @ As Directed STK-MED ONCE .ROUTE ; Start 07/17/16 at 10:46; Stop 07/17/16 at 10:47; Status DC Heparin Sodium/ Sodium Chloride 1,000 unit 1X ONCE IART Last administered on 11:27; Start 07/17/16 at 11:15; Stop 07/17/16 at 11:26; Status DC Lidocaine/Sodium Bicarbonate (Buffered Lidocaine 1%) 3 ml 1X ONCE IJ Last administered on 07/17/16 11:15; Start 07/17/16 at 11:15; Stop 07/17/16 at 11:26 ; Status DC Iohexol (Omnipaque 300 Mg/ml) 40 ml 1X ONCE IART Last administered on 11:26; Start 07/17/16 at 11:15; Stop 07/17/16 at 11:26; Status DC Info (Do NOT chart on this entry -- for MONITORING) 1 each PRN DAILY PRN MC SEE COMMENTS; Start 07/17/16 at 11:30; Stop 07/19/16 at 11:29; Status DC Calcium Chloride 2,000 mg STK-MED ONCE IV ; Start 07/16/16 at 13:02; Stop at 13:03; Status DC Epinephrine HCl 4 mg STK-MED ONCE .ROUTE ; Start 07/16/16 at 13:02; Stop at 13:03; Status DC Furosemide 40 mg 40 mg 1X ONCE IVP Last administered on 07/17/16 16:45; Start 07/17/16 at 16:45; Stop 07/17/16 at 16:47; Status DC Propofol (Diprivan) 100 ml @ As Directed STK-MED ONCE IV ; Start 07/17/16 at 16 :36; Stop 07/17/16 at 16:37; Status DC Insulin Detemir (Levemir) 35 units BID SQ Last administered on 07/18/16 10:00 ; Start 07/18/16 at 09:00; Stop 07/18/16 at 11:55; Status DC Insulin Aspart (Novolog) 10 units Q6HRS SQ ; Start 07/18/16 at 12:00; Stop 07/18 at 12:00; Status DC Insulin Aspart 20 units 20 units 1X ONCE SQ Last administered on 07/18/16 10: 02; Start 07/18/16 at 08:15; Stop 07/18/16 at 11:56; Status DC Sodium Acetate/ Potassium Acetate/ Magnesium Sulfate/ Calcium Gluconate/ Multivitamins/ Chromium/Copper/ Manganese/Seleni/ Zn/Insulin Human Regular/ Total Parenteral Nutrition/Amino Acids/Dextrose/ Fat Emulsion Intravenous ( Calcium Gluconate/ Infuvite Adult/ Multitrace-5 Conc/ Novolin R Vi... 1,512 ml @ 63 mls/hr TPN CONT IV Last administered on 07/18/16 22:03; Start 07/18/16 at 22:00; Stop 07/19/16 at 21:59; Status DC Atropine Sulfate 0.5 mg 0.5 mg STK-MED ONCE .ROUTE ; Start 07/18/16 at 09:43; Stop 07/18/16 at 09:44; Status DC Insulin Human Regular/Sodium Chloride (Novolin R Vial/ Iv Normal Saline 150ml) 151.5 ml @ 0 mls/hr CONT PRN IV SEE I/O RECORD Last administered on 07/18/16 13:54; Start 07/18/16 at 11:45; Stop 07/19/16 at 10:27; Status DC Dextrose 12.5 gm 12.5 gm PRN Q15MIN PRN IV LOW BLOOD SUGAR; Start 07/18/16 at 11:45; Stop 07/19/16 at 10:53; Status DC Potassium Chloride (KCl Premix 20meq) 50 ml @ 25 mls/hr Q2H IV Last administered on 07/19/16 11:09; Start 07/19/16 at 09:30; Stop 07/19/16 at 13:29 ; Status DC Propofol (Diprivan) 1,000 mg STK-MED ONCE IV ; Start 07/17/16 at 16:36; Stop at 08:22; Status DC Atropine Sulfate 1 mg STK-MED ONCE .ROUTE ; Start 07/18/16 at 09:43; Stop at 08:53; Status DC Hydrocortisone Sodium Succinate (Solu-Cortef) 50 mg Q8HRS IV Last administered on 07/24/16 05:27; Start 07/19/16 at 14:00; Stop 07/24/16 at 14:38; Status DC Heparin Sodium (Porcine) 7400 unit 7,400 unit 1X ONCE IV Last administered on 07/19/16 10:03; Start 07/19/16 at 09:45; Stop 07/19/16 at 09:53; Status DC Heparin Sodium/ Dextrose 500 ml @ 0 mls/hr CONT PRN IV SEE I/O RECORD Last administered on 07/25/16 01:58; Start 07/19/16 at 09:45; Stop 07/25/16 at 13:12; Status DC Heparin Sodium (Porcine) 2,800 unit PRN Q6HRS PRN IV FOR UFH LEVEL LESS THAN 0.2; Start 07/19/16 at 09:45; Stop 07/23/16 at 08:12; Status DC Heparin Sodium (Porcine) 1,400 unit PRN Q6HRS PRN IV FOR UFH LEVEL 0.2 - 0.29 Last administered on 07/20/16 12:06; Start 07/19/16 at 09:45; Stop 07/23/16 at 08:12; Status DC Warfarin Sodium (Coumadin Per Pharmacy) 1 each PRN DAILY PRN MC PER PROTOCOL Last administered on 07/26/16 14:48; Start 07/19/16 at 09:45; Stop 07/26/16 at 15 :34; Status DC Insulin Aspart (Novolog) 0-5 UNITS TIDWMEALS SQ Last administered on 07/19/16 12:02; Start 07/19/16 at 12:00; Stop 07/19/16 at 16:45; Status DC Dextrose 12.5 gm 12.5 gm PRN Q15MIN PRN IV SEE COMMENTS; Start 07/19/16 at 10: 30; Stop 07/24/16 at 13:40; Status DC Potassium Acetate/ Magnesium Sulfate/ Calcium Gluconate/ Multivitamins/ Chromium /Copper/ Manganese/Seleni/ Zn/Insulin Human Regular/Total Parenteral Nutrition/ Amino Acids/Dextrose/ Fat Emulsion Intravenous (Calcium Gluconate/ Infuvite Adult/ Multitrace-5 Conc/ Novolin R Vial/ Tpn - Tpn Flu... 1,200 ml @ 50 mls/ hr TPN CONT IV ; Start 07/19/16 at 22:00; Stop 07/19/16 at 22:00; Status DC Insulin Aspart (Novolog) 0-5 UNITS Q6HRS SQ Last administered on 07/21/16 12: 04; Start 07/19/16 at 18:00; Stop 07/21/16 at 12:34; Status DC Warfarin Sodium (Coumadin) 4 mg 1X WARF ONCE PO Last administered on 17:26; Start 07/19/16 at 17:02; Stop 07/19/16 at 17:03; Status DC Fentanyl Citrate (Fentanyl 2ml Vial) 50 mcg PRN Q2HR PRN IV PAIN Last administered on 07/22/16 03:15; Start 07/20/16 at 02:45; Stop 07/22/16 at 04:45 ; Status DC Warfarin Sodium (Coumadin) 5 mg 1X WARF ONCE PO Last administered on 17:09; Start 07/20/16 at 16:00; Stop 07/20/16 at 16:01; Status DC Midazolam HCl 1 mg 1 mg PRN Q1HR PRN IV sedation on vent; Start 07/20/16 at 11: 15; Stop 07/22/16 at 04:46; Status DC Sodium Chloride (Iv Sodium Chloride 0.9% 1000ml Bag) 1,000 ml @ 75 mls/hr [id number] IV Last administered on 07/23/16 05:31; Start 07/20/16 at 11:15; Stop 07/23/16 at 11:50; Status DC Midazolam HCl (Versed) 2 mg PRN Q1HR PRN IV sedation on vent; Start 07/20/16 at 11:15; Stop 07/22/16 at 04:47; Status DC Midazolam HCl (Versed) 3 mg PRN Q1HR PRN IV sedation on vent; Start 07/20/16 at 11:15; Stop 07/22/16 at 04:47; Status DC Midazolam HCl (Versed) 4 mg PRN Q1HR PRN IV sedation on vent Last administered on 07/22/16 04:32; Start 07/20/16 at 11:15; Stop 07/22/16 at 04:47; Status DC Insulin Detemir (Levemir) 15 units QHS SQ Last administered on 07/20/16 20:47 ; Start 07/20/16 at 21:00; Stop 07/21/16 at 12:34; Status DC Warfarin Sodium (Coumadin) 5 mg 1X WARF ONCE PO Last administered on 15:37; Start 07/21/16 at 16:00; Stop 07/21/16 at 16:01; Status DC Pantoprazole Sodium (Protonix Vial) 40 mg DAILYAC IVP Last administered on 07/22 07:41; Start 07/22/16 at 07:30; Stop 07/23/16 at 04:47; Status DC Insulin Detemir (Levemir) 25 units QHS SQ Last administered on 07/25/16 21:16; Start 07/21/16 at 21:00; Stop 07/26/16 at 08:09; Status DC Docusate Sodium (Colace) 100 mg BID PO Last administered on 07/25/16 21:11; Start 07/21/16 at 21:00 Insulin Aspart (Novolog) 0-9 UNITS Q6HRS SQ Last administered on 07/28/16 06:39 ; Start 07/21/16 at 13:00 Fentanyl Citrate (Fentanyl 2ml Vial) 100 mcg STK-MED ONCE .ROUTE ; Start at 22:18; Stop 07/21/16 at 22:19; Status DC Midazolam HCl (Versed) 2 mg STK-MED ONCE .ROUTE ; Start 07/21/16 at 23:45; Stop 07/21/16 at 23:46; Status DC Fentanyl Citrate (Fentanyl 2ml Vial) 100 mcg STK-MED ONCE .ROUTE ; Start at 00:36; Stop 07/22/16 at 00:37; Status DC Midazolam HCl (Versed) 2 mg STK-MED ONCE .ROUTE ; Start 07/22/16 at 00:57; Stop 07/22/16 at 00:58; Status DC Midazolam HCl (Versed) 2 mg STK-MED ONCE .ROUTE ; Start 07/22/16 at 02:06; Stop 07/22/16 at 02:07; Status DC Midazolam HCl (Versed) 2 mg STK-MED ONCE .ROUTE ; Start 07/22/16 at 03:13; Stop 07/22/16 at 03:14; Status DC Fentanyl Citrate (Fentanyl 2ml Vial) 100 mcg STK-MED ONCE .ROUTE ; Start at 03:14; Stop 07/22/16 at 03:15; Status DC Midazolam HCl (Versed) 2 mg STK-MED ONCE .ROUTE ; Start 07/22/16 at 04:29; Stop 07/22/16 at 04:30; Status DC Fentanyl Citrate (Fentanyl 2ml Vial) 50 mcg PRN Q2HR PRN IV SEVERE PAIN Last administered on 07/28/16 06:28; Start 07/22/16 at 04:45 Midazolam HCl (Versed) 1 mg PRN Q1HR PRN IV sedation on vent; Start 07/22/16 at 04:46 Midazolam HCl (Versed) 2 mg PRN Q1HR PRN IV sedation on vent Last administered on 07/22/16 07:42; Start 07/22/16 at 04:47 Midazolam HCl (Versed) 3 mg PRN Q1HR PRN IV sedation on vent; Start 07/22/16 at 04:47 Midazolam HCl (Versed) 4 mg PRN Q1HR PRN IV sedation on vent Last administered on 07/22/16 05:33; Start 07/22/16 at 04:47 Warfarin Sodium (Coumadin) 7.5 mg 1X WARF ONCE PO Last administered on 17:38; Start 07/22/16 at 16:00; Stop 07/22/16 at 16:01; Status DC Metoprolol Tartrate (Lopressor) 5 mg Q6HRS IVP Last administered on 07/26/16 06 :09; Start 07/22/16 at 12:30; Stop 07/26/16 at 09:08; Status DC Atorvastatin Calcium (Lipitor) 40 mg STK-MED ONCE .ROUTE ; Start 07/22/16 at 20: 37; Stop 07/22/16 at 20:38; Status DC Diphenhydramine HCl (Benadryl) 25 mg PRN Q6HRS PRN IVP ANAPHYLAXIS; Start 07/23 at 04:47 Pantoprazole Sodium (Protonix Vial) 40 mg DAILYAC IVP Last administered on 08:30; Start 07/23/16 at 04:47 Heparin Sodium (Porcine) 3,100 unit PRN Q6HRS PRN IV FOR UFH LEVEL LESS THAN 0.2; Start 07/23/16 at 08:15; Stop 07/24/16 at 13:37; Status DC Heparin Sodium (Porcine) 1,600 unit PRN Q6HRS PRN IV FOR UFH LEVEL 0.2 - 0.29 Last administered on 07/23/16 08:26; Start 07/23/16 at 08:15; Stop 07/24/16 at 13:39; Status DC Warfarin Sodium 7.5 mg 7.5 mg 1X WARF ONCE PO Last administered on 07/23/16 16:53; Start 07/23/16 at 16:00; Stop 07/23/16 at 16:01; Status DC Potassium Chloride 50 ml @ 50 mls/hr Q1H IV Last administered on 07/23/16 13: 39; Start 07/23/16 at 11:00; Stop 07/23/16 at 12:59; Status DC Amino Acids/ Electrolytes/ Dextrose (Clinimix E 4.25%-5% Solution) 1,000 ml @ 80 mls/hr [id number] IV Last administered on 07/27/16 04:34; Start 07/23/16 at 12: 00; Stop 07/27/16 at 14:18; Status DC Atorvastatin Calcium (Lipitor) 40 mg STK-MED ONCE .ROUTE ; Start 07/23/16 at 20: 33; Stop 07/23/16 at 20:34; Status DC Warfarin Sodium (Coumadin) 5 mg 1X WARF ONCE PO ; Start 07/24/16 at 16:00; Stop 07/24/16 at 16:01; Status DC Heparin Sodium (Porcine) (Heparin Sodium) 3,100 unit PRN Q6HRS PRN IV FOR UFH LEVEL LESS THAN 0.2; Start 07/24/16 at 13:37; Stop 07/25/16 at 13:12; Status DC Heparin Sodium (Porcine) (Heparin Sodium) 1,600 unit PRN Q6HRS PRN IV FOR UFH LEVEL 0.2 - 0.29; Start 07/24/16 at 13:39; Status Cancel Atorvastatin Calcium (Lipitor) 40 mg HS PO Last administered on 07/25/16 21:11 ; Start 07/24/16 at 21:00 Dextrose (Dextrose 50%-Water Syringe) 12.5 gm PRN Q15MIN PRN IV SEE COMMENTS Last administered on 07/26/16 07:42; Start 07/24/16 at 13:40; Stop 07/26/16 at 09: 07; Status DC Hydralazine HCl (Apresoline) 20 mg PRN Q4HRS PRN IVP ELEVATED BP, SEE COMMENTS Last administered on 07/27/16 07:47; Start 07/24/16 at 14:45 Hydrocortisone Sodium Succinate (Solu-Cortef) 50 mg BID IV Last administered on 07/25/16 21:15; Start 07/24/16 at 21:00; Stop 07/26/16 at 09:07; Status DC Clonidine HCl 1 patch 1 patch WEEKLY TD Last administered on 07/24/16 19:05; Start 07/24/16 at 15:00; Stop 07/26/16 at 09:07; Status DC Nicardipine HCl/ Sodium Chloride (Cardene/Iv Sodium Chloride 0.9% 250ml) 270 ml @ 0 mls/hr CONT PRN IV SEE I/O RECORD Last administered on 07/25/16 22:46; Start 07/25/16 at 08:45; Stop 07/26/16 at 09:04; Status DC Warfarin Sodium (Coumadin) 5 mg 1X WARF ONCE PO Last administered on 07/25/16 15:09; Start 07/25/16 at 16:00; Stop 07/25/16 at 16:01; Status DC Lorazepam (Ativan) 1 mg PRN Q4HRS PRN IV ANXIETY / AGITATION Last administered on 07/26/16 11:55; Start 07/26/16 at 01:30 Clonidine HCl (Catapres Tts-2) 2 patch WEEKLY TD Last administered on 07/26/16 10:34; Start 07/26/16 at 10:00 Hydrocortisone Sodium Succinate 25 mg 25 mg BID IV Last administered on 09:48; Start 07/26/16 at 09:00; Stop 07/27/16 at 10:07; Status DC Potassium Chloride (KCl Premix 20meq) 50 ml @ 50 mls/hr Q1H IV Last administered on 07/26/16 11:55; Start 07/26/16 at 10:00; Stop 07/26/16 at 11:59; Status DC Dextrose (Dextrose 50%-Water Syringe) 25 gm STK-MED ONCE IV ; Start 07/26/16 at 13:21; Stop 07/26/16 at 13:22; Status DC Dextrose (Dextrose 50%-Water Syringe) 12.5 gm PRN Q15MIN PRN IV SEE COMMENTS Last administered on 07/26/16 13:27; Start 07/26/16 at 13:30 Warfarin Sodium (Coumadin) 5 mg 1X WARF ONCE PO ; Start 07/26/16 at 16:00; Stop 07/26/16 at 16:01; Status Cancel Methylprednisolone Sodium Succinate (Solu-Medrol 125mg Vial) 125 mg 1X ONCE IV Last administered on 07/26/16 15:11; Start 07/26/16 at 15:30; Stop 07/26/16 at 15:31; Status DC Diphenhydramine HCl (Benadryl) 50 mg 1X ONCE IVP ; Start 07/26/16 at 15:30; Stop 07/26/16 at 15:30; Status DC Diphenhydramine HCl (Benadryl) 25 mg PRN Q6HRS PRN IVP ITCHING Last administered on 07/26/16 15:13; Start 07/26/16 at 15:00 Alteplase, Recombinant (Cathflo) 2 mg 1X ONCE INT CAT Last administered on 07/26 16:15; Start 07/26/16 at 15:45; Stop 07/26/16 at 15:46; Status DC Enoxaparin Sodium (Lovenox 100mg Syringe) 100 mg Q12HR SQ Last administered on 07/27/16 21:34; Start 07/26/16 at 21:00; Stop 07/28/16 at 07:50; Status DC Hydrocortisone Sodium Succinate 25 mg 25 mg DAILY IV Last administered on 08:31; Start 07/28/16 at 09:00; Stop 07/29/16 at 09:01 Magnesium Sulfate/ Dextrose 50 ml @ 25 mls/hr PRN DAILY PRN IV for Mag < 1.7 on am labs; Start 07/27/16 at 10:15; Stop 07/27/16 at 14:19; Status DC Potassium Chloride 50 ml @ 50 mls/hr PRN Q6HRS PRN IV For K < 3.7; Start at 10:15; Stop 07/27/16 at 14:19; Status DC Potassium Chloride (KCl Premix 20meq) 50 ml @ 50 mls/hr PRN Q2HR PRN IV total of 40mEq for K < 3.5; Start 07/27/16 at 10:15; Stop 07/27/16 at 14:19; Status DC Furosemide (Lasix) 40 mg [id number] IVP Last administered on 07/28/16 08:31; Start 07/27/16 at 10:30; Stop 07/28/16 at 11:01; Status DC Info 1 each 1 each PRN DAILY PRN MC SEE COMMENTS Last administered on 07/27/16 15:16; Start 07/27/16 at 14:15 Potassium Acetate/ Magnesium Sulfate/ Calcium Gluconate/ Multivitamins/ Chromium /Copper/ Manganese/Seleni/ Zn/Insulin Human Regular/Total Parenteral Nutrition/ Amino Acids/Dextrose/ Fat Emulsion Intravenous (Calcium Gluconate/ Infuvite Adult/ Multitrace-5 Conc/ Novolin R Vial/ Tpn - Tpn Flu... 1,512 ml @ 63 mls/ hr TPN CONT IV Last administered on 07/27/16 21:42; Start 07/27/16 at 22:00; Stop 07/28/16 at 21:59 Rivaroxaban (Xarelto) 15 mg BIDWMEALS PO ; Start 07/28/16 at 08:00; Stop 07/28/16 at 10:33; Status DC Enoxaparin Sodium (Lovenox 100mg Syringe) 100 mg Q12HR SQ ; Start 07/28/16 at 11: 00 Iohexol (Omnipaque 350 Mg/ml) 100 ml 1X ONCE IV Last administered on 07/28/16 12:01; Start 07/28/16 at 12:00; Stop 07/28/16 at 12:01; Status DC Info (Do NOT chart on this entry -- for MONITORING) 1 each PRN DAILY PRN MC SEE COMMENTS; Start 07/28/16 at 11:45; Stop 07/30/16 at 11:44 Active Scripts Active Levemir Flextouch (Insulin Detemir) 100 Unit/1 Ml Insuln.pen 20 Units SQ QHS 30 Days Novolog Flexpen (Insulin Aspart) 100 Unit/1 Ml Insuln.pen 10 Units SQ TIDAC 30 Days Reported Advair 100-50 Diskus (Fluticasone/Salmeterol) 1 Each Disk.w.dev 1 Puff IH BID Spiriva Respimat (Tiotropium [place]) 4 Gm Mist.inhal 2.5 Gm IH DAILY Symbicort 160-4.5 Mcg Inhaler (Budesonide/Formoterol Fumarate) 10.2 Gm Hfa.aer.ad 2 Puff IH BID Atorvastatin Calcium 20 Mg Tablet 20 Mg PO HS Lisinopril-Hctz 10-12.5 Mg Tab (Lisinopril/Hydrochlorothiazide) 1 Each Tablet 1 Tab PO DAILY Isosorbide Mononitrate Er (Isosorbide Mononitrate) 120 Mg Tab.er.24h 120 Mg PO DAILY Novolin N (Nph, Human Insulin Isophane) 100 Unit/1 Ml Vial 0 SQ Promethazine-Codeine Syrup (Promethazine Hcl/Codeine) 118 Ml Syrup 5 Ml PO Q4- 6HRS Diltiazem 24HR Cd (Diltiazem Hcl) 240 Mg Cap.er.24h 240 Mg PO DAILY NITROGLYCERIN SubLingual (Nitroglycerin) 0.4 Mg Tab.subl 0.4 Mg SL PRN Q5MIN PRN Atorvastatin Calcium 40 Mg Tablet 40 Mg PO HS Vitals/I & O Vital Sign - Last 24 Hours 07/27/16 07/27/16 07/27/16 07/27/16 15:49 16:00 20:30 20:35 Temp 97.7 97.7 Pulse 74 73 Resp 21 18 B/P 179/94 131/92 Pulse Ox 95 97 O2 Delivery Room Air Room Air Room Air Room Air 07/27/16 07/27/16 07/28/16 07/28/16 22:22 23:33 03:05 03:32 Temp 97.9 98.0 97.9 98.0 Pulse 72 78 Resp 20 22 B/P 156/70 170/86 Pulse Ox 99 95 94 O2 Delivery Room Air Room Air Room Air Room Air 07/28/16 07/28/16 07/28/16 07/28/16 06:58 07:30 08:20 10:55 Temp 98.1 98.1 Pulse 67 Resp 18 B/P 172/84 Pulse Ox 94 94 6 6 O2 Delivery Room Air Room Air Room Air Room Air 07/28/16 11:45 Temp 98.2 98.2 Pulse 64 Resp 18 B/P 166/86 Pulse Ox 95 Intake and Output 07/27/16 07/27/16 07/28/16 15:00 23:00 07:00 Intake Total 627 ml 0 ml Output Total 1610 ml 1100 ml 1500 ml Balance -1610 ml -473 ml -1500 ml BALA BRYANT MD Jul 28, 2016 13:07
--- NOTE | 2016-07-28 13:31 | RAD ---
CTA of the abdomen and pelvis with contrast, 07/29/2015: History: Renal artery stenosis Multidetector CT imaging was performed following an IV bolus injection of iodinated contrast material. Multiplanar reconstructions were produced including 3-D volume rendered reconstructions of the aorta and its major branches. There is moderate atherosclerotic plaquing of the abdominal aorta. The plaques are partially calcified. There is mild to moderate atherosclerotic plaquing involving the proximal celiac artery without evidence of high-grade stenosis. There is mild plaquing in the superior mesenteric artery without evidence of high-grade stenosis. There is a single left renal artery without significant stenosis. There are 2 right renal arteries. The largest of these lies superiorly and demonstrates moderate atherosclerotic plaquing proximally. Underlying luminal narrowing is estimated at approximate 60% of the luminal diameter. No high-grade stenosis is identified. There is a smaller right renal artery arising just inferior and anterior to this level without evidence of high-grade stenosis. 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 There is moderate atherosclerotic plaquing in the iliac arteries bilaterally. The right common iliac artery is mildly dilated measuring 2.2 cm in width. 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 The right external iliac and common femoral arteries are widely patent. The left common iliac artery measures 1.8 cm in width. There is moderate irregular atherosclerotic plaquing of the distal left common iliac artery at the internal iliac artery origin. The origin of the left internal carotid artery is mildly dilated measuring 1.7 cm in width. The left external iliac and common femoral arteries are widely patent. Incidental CT findings include the presence of a moderate volume of left-sided pleural fluid and a small amount of right-sided pleural fluid. The right-sided pleural fluid appears to be partially loculated anteriorly. There is underlying atelectasis and/or scarring in both lung bases. There are calcified granuloma to in the left lower chest. There are a few scattered tree in bud type pulmonary opacities, particularly in the lingula on the left. This may be due to bronchopneumonia or chronic small airway disease. Coronary artery calcifications are present. There is a small to moderate volume of ascites in the abdomen. A Champion catheter is present in the collapsed urinary bladder. There is bilateral renal scarring. An inferior vena cava filter is in place. There is moderate streaky subcutaneous edema compatible with anasarca. IMPRESSION: 1. Moderate atherosclerotic plaquing of the abdominal aorta and its branches. 2. Moderate atherosclerotic plaquing in the larger of the two right renal arteries with moderate underlying stenosis estimated at approximately 60% of the luminal diameter. 3. 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 4. Miscellaneous findings as described above including bilateral pleural effusions, pulmonary infiltrates, ascites and anasarca. PQRS Compliance Statement: One or more of the following individualized dose reduction techniques were utilized for this examination: 1. Automated exposure control 2. Adjustment of the mA and/or kV according to patient size 3. Use of iterative reconstruction technique
--- NOTE | 2016-07-28 14:44 | PDOC ---
PULMONARY PROGRESS NOTES Subjective EXTUBATEd 07/22 NO INCREASE SOA Vitals Vital Signs Date Time Temp Pulse Resp B/P Pulse Ox O2 Delivery O2 Flow Rate FiO2 07/28/16 13:02 18 95 Room Air 07/28/16 11:45 98.2 64 166/86 98.2 General: Alert, No acute distress HEENT: Other (nc at orally intubated, nose clear, ) Lungs: Other (decreased breath sounds bilaterally. ) Cardiovascular: S1, S2 Abdomen: Soft, Non-tender, Other (no groin tenderness) Neuro Exam: Alert Extremities: Other (2+EDEMA) Skin: Warm Labs Laboratory Tests Test 07/26/16 17:14 07/26/16 18:37 07/26/16 21:03 07/27/16 00:35 Glucose (Fingerstick) 87mg/dL (70-99) 117mg/dL (70-99) 155mg/dL (70-99) 221mg/dL (70-99) Test 07/27/16 05:46 07/27/16 05:50 07/27/16 11:16 07/27/16 13:40 Glucose (Fingerstick) 217mg/dL (70-99) 264mg/dL (70-99) White Blood Count 15.1x10^3/uL (4.0-11.0) Red Blood Count 3.93x10^6/uL (4.30-5.70) Hemoglobin 11.0g/dL (13.0-17.5) Hematocrit 35.1% (39.0-53.0) Mean Corpuscular Volume 89fL (79-100) Mean Corpuscular Hemoglobin 28pg (25-35) Mean Corpuscular Hemoglobin Concent 31g/dL (31-37) Red Cell Distribution Width 15.1% (11.5-14.5) Platelet Count 241x10^3/uL (140-400) Neutrophils (%) (Auto) 91% (31-73) Lymphocytes (%) (Auto) 4% (24-48) Monocytes (%) (Auto) 5% (0-9) Eosinophils (%) (Auto) 0% (0-3) Basophils (%) (Auto) 0% (0-3) Neutrophils # (Auto) 13.8x10^3uL (1.8-7.7) Lymphocytes # (Auto) 0.5x10^3/uL (1.0-4.8) Monocytes # (Auto) 0.7x10^3/uL (0.0-1.1) Eosinophils # (Auto) 0.0x10^3/uL (0.0-0.7) Basophils # (Auto) 0.0x10^3/uL (0.0-0.2) Sodium Level 147mmol/L (136-145) Potassium Level 4.9mmol/L (3.5-5.1) 4.7mmol/L (3.5-5.1) Chloride Level 109mmol/L (98-107) Carbon Dioxide Level 25mmol/L (21-32) Anion Gap 13 (6-14) Blood Urea Nitrogen 39mg/dL (8-26) Creatinine 1.1mg/dL (0.7-1.3) Estimated GFR (Cockcroft-Gault) 79.4 Glucose Level 262mg/dL (70-99) Calcium Level 8.5mg/dL (8.5-10.1) Phosphorus Level 4.9mg/dL (2.6-4.7) Magnesium Level 2.1mg/dL (1.8-2.4) Test 07/27/16 17:50 07/27/16 17:56 07/28/16 00:01 07/28/16 00:30 Potassium Level 4.4mmol/L (3.5-5.1) 4.0mmol/L (3.5-5.1) Glucose (Fingerstick) 379mg/dL (70-99) 242mg/dL (70-99) Magnesium Level 1.8mg/dL (1.8-2.4) Test 07/28/16 06:02 07/28/16 06:40 07/28/16 12:42 Glucose (Fingerstick) 167mg/dL (70-99) 221mg/dL (70-99) White Blood Count 17.7x10^3/uL (4.0-11.0) Red Blood Count 3.54x10^6/uL (4.30-5.70) Hemoglobin 10.0g/dL (13.0-17.5) Hematocrit 31.3% (39.0-53.0) Mean Corpuscular Volume 89fL (79-100) Mean Corpuscular Hemoglobin 28pg (25-35) Mean Corpuscular Hemoglobin Concent 32g/dL (31-37) Red Cell Distribution Width 15.1% (11.5-14.5) Platelet Count 221x10^3/uL (140-400) Neutrophils (%) (Auto) 82% (31-73) Lymphocytes (%) (Auto) 10% (24-48) Monocytes (%) (Auto) 7% (0-9) Eosinophils (%) (Auto) 1% (0-3) Basophils (%) (Auto) 1% (0-3) Neutrophils # (Auto) 14.4x10^3uL (1.8-7.7) Lymphocytes # (Auto) 1.8x10^3/uL (1.0-4.8) Monocytes # (Auto) 1.3x10^3/uL (0.0-1.1) Eosinophils # (Auto) 0.1x10^3/uL (0.0-0.7) Basophils # (Auto) 0.1x10^3/uL (0.0-0.2) Sodium Level 146mmol/L (136-145) Potassium Level 3.7mmol/L (3.5-5.1) Chloride Level 110mmol/L (98-107) Carbon Dioxide Level 29mmol/L (21-32) Anion Gap 7 (6-14) Blood Urea Nitrogen 37mg/dL (8-26) Creatinine 1.1mg/dL (0.7-1.3) Estimated GFR (Cockcroft-Gault) 79.4 Glucose Level 201mg/dL (70-99) Calcium Level 8.3mg/dL (8.5-10.1) Phosphorus Level 3.5mg/dL (2.6-4.7) Laboratory Tests Test 07/27/16 17:50 07/27/16 17:56 07/28/16 00:01 07/28/16 00:30 Potassium Level 4.4mmol/L (3.5-5.1) 4.0mmol/L (3.5-5.1) Glucose (Fingerstick) 379mg/dL (70-99) 242mg/dL (70-99) Magnesium Level 1.8mg/dL (1.8-2.4) Test 07/28/16 06:02 07/28/16 06:40 07/28/16 12:42 Glucose (Fingerstick) 167mg/dL (70-99) 221mg/dL (70-99) White Blood Count 17.7x10^3/uL (4.0-11.0) Red Blood Count 3.54x10^6/uL (4.30-5.70) Hemoglobin 10.0g/dL (13.0-17.5) Hematocrit 31.3% (39.0-53.0) Mean Corpuscular Volume 89fL (79-100) Mean Corpuscular Hemoglobin 28pg (25-35) Mean Corpuscular Hemoglobin Concent 32g/dL (31-37) Red Cell Distribution Width 15.1% (11.5-14.5) Platelet Count 221x10^3/uL (140-400) Neutrophils (%) (Auto) 82% (31-73) Lymphocytes (%) (Auto) 10% (24-48) Monocytes (%) (Auto) 7% (0-9) Eosinophils (%) (Auto) 1% (0-3) Basophils (%) (Auto) 1% (0-3) Neutrophils # (Auto) 14.4x10^3uL (1.8-7.7) Lymphocytes # (Auto) 1.8x10^3/uL (1.0-4.8) Monocytes # (Auto) 1.3x10^3/uL (0.0-1.1) Eosinophils # (Auto) 0.1x10^3/uL (0.0-0.7) Basophils # (Auto) 0.1x10^3/uL (0.0-0.2) Sodium Level 146mmol/L (136-145) Potassium Level 3.7mmol/L (3.5-5.1) Chloride Level 110mmol/L (98-107) Carbon Dioxide Level 29mmol/L (21-32) Anion Gap 7 (6-14) Blood Urea Nitrogen 37mg/dL (8-26) Creatinine 1.1mg/dL (0.7-1.3) Estimated GFR (Cockcroft-Gault) 79.4 Glucose Level 201mg/dL (70-99) Calcium Level 8.3mg/dL (8.5-10.1) Phosphorus Level 3.5mg/dL (2.6-4.7) Medications Active Scripts Medications Dose Route/Sig Days Date Category Advair 100-50 Diskus (Fluticasone/Salmeterol) 1 Each Disk.w.dev 1 Puff IH BID 06/21/16 Reported Spiriva Respimat (Tiotropium [place]) 4 Gm Mist.inhal 2.5 Gm IH DAILY 06/21/16 Reported Symbicort 160-4.5 Mcg Inhaler (Budesonide/Formoterol Fumarate) 10.2 Gm Hfa.aer.ad 2 Puff IH BID 06/21/16 Reported Atorvastatin Calcium 20 Mg Tablet 20 Mg PO HS 06/21/16 Reported Lisinopril-Hctz 10-12.5 Mg Tab (Lisinopril/Hydrochlorothiazide) 1 Each Tablet 1 Tab PO DAILY 06/21/16 Reported Isosorbide Mononitrate Er (Isosorbide Mononitrate) 120 Mg Tab.er.24h 120 Mg PO DAILY 06/21/16 Reported Levemir Flextouch (Insulin Detemir) 100 Unit/1 Ml Insuln.pen 20 Units SQ QHS 30 11/24/15 Rx Novolog Flexpen (Insulin Aspart) 100 Unit/1 Ml Insuln.pen 10 Units SQ TIDAC 30 11/24/15 Rx Novolin N (Nph, Human Insulin Isophane) 100 Unit/1 Ml Vial 0 SQ 11/18/15 Reported Promethazine-Codeine Syrup (Promethazine Hcl/Codeine) 118 Ml Syrup 5 Ml PO Q4-6HRS 11/18/15 Reported Diltiazem 24HR Cd (Diltiazem Hcl) 240 Mg Cap.er.24h 240 Mg PO DAILY 11/18/15 Reported NITROGLYCERIN SubLingual (Nitroglycerin) 0.4 Mg Tab.subl 0.4 Mg SL PRN Q5MIN PRN 11/18/15 Reported Atorvastatin Calcium 40 Mg Tablet 40 Mg PO HS 11/18/[address] reviewed, 1. Widespread multifocal bilateral segmental pulmonary embolism, with nonocclusive lobar embolism involving the right lower and middle lobes. 2. Diffuse tree-in-bud opacification suggestive of acute bronchiolitis. Findings are less confluence than on the prior examination, but now involve the lower lobes. 3. Right heart enlargement with straightening of the interventricular septum possibly due to pulmonary hypertension. Correlate clinically and consider echocardiography if warranted. 4. Short segment high-grade stricture and/or focal obliteration of the right upper lobe bronchus. No adjacent mass or evidence of extrinsic compression. This is stable. CXR REVIEWED Impression . 1. Acute respiratory failure secondary to angioedema, self extubated 07/14, reintubated 07/15, s/p cardiopulmonary arrest, Acute extensive PE, DVT, s/p TPA 2. Acute extensive PE with shock, DVT, s/p TPA, 2. Lisinopril induced angioedema. resolved 3. Chronic obstructive pulmonary disease. 4. Hypertension. 5. Coronary artery disease. s/p emergent cath.no sig disease 6. BASIM, improving 7. anemia, Plan . NEEDS REHAB SPEECH EVALUATION / NPO FOR NOW D/W RN RESUME XARELTO ONCE CLEARED TO TAKE PO/ LOVENOX FOR NOW DYSPHAGIA IMPROVING REPEAT CXR STABLE OFF STEROIDS ANTICOAGULATION FOR AT LEAST [address] CHEST IN 6 WEEKS IVANA MCCONNELL MD Jul 28, 2016 14:44
[2016-07-28] MEDS: TPN PER PHARMACY MC PRN (15:09)
[2016-07-28 15:30] VITALS: BP 156/81
[2016-07-28 19:00] VITALS: BP 166/89
[2016-07-28] MEDS: ATORVASTATIN CALCIUM 40 MG TABLET. PO SCH (21:00)
[2016-07-28] MEDS ORDERED: AMINO ACIDS IV SCH ×9 (22:00)
[2016-07-28] MEDS ORDERED: [UNRECOGNIZED DRUG - OTHER] IV SCH ×9 (22:00)
[2016-07-28] MEDS ORDERED: DEXTROSE 70% IV SCH ×9 (22:00)
[2016-07-28] MEDS ORDERED: TOTAL PARENTERAL NUTRITION IV SCH ×9 (22:00)
[2016-07-28 23:00] VITALS: BP 175/84
[2016-07-29] VITALS (10 sets, daily range): BP systolic 133–184; BP diastolic 60–92
[2016-07-29] MEDS: ALBUTEROL SULFATE 2.5 MG/3 ML NEBU. NEB PRN (02:19)
[2016-07-29 02:46] LABS: BASO # 0.1 x10^3/uL (0.0-0.2); BASO % 1 % (0-3); EOS % 1 % (0-3); HEMATOCRIT 29.6 % (39.0-53.0); HEMOGLOBIN 9.5 g/dL (13.0-17.5); LYMPH # 1.6 x10^3/uL (1.0-4.8); LYMPH % 12 % (24-48); MEAN CORPUSCULAR HEMOGLOBIN 28 pg (25-35); MEAN CORPUSCULAR HGB CONC 32 g/dL (31-37); MEAN CORPUSCULAR VOLUME 88 fL (79-100); MONO % 9 % (0-9); NEUT % 78 % (31-73); PLATELET COUNT 214 x10^3/uL (140-400); RED BLOOD COUNT 3.38 x10^6/uL (4.30-5.70); RED CELL DISTRIBUTION WIDTH 15.1 % (11.5-14.5); WHITE BLOOD COUNT 13.9 x10^3/uL (4.0-11.0)
[2016-07-29 03:03] LABS: CALCIUM 8.4 mg/dL (8.5-10.1); GFR 88.6; POTASSIUM 3.6 mmol/L (3.5-5.1)
[2016-07-29] MEDS: INSULIN ASPART 300 UNITS/3 ML INSULN.PEN SQ SCH ×4 (05:39→23:37)
[2016-07-29] MEDS: FENTANYL PF 100 MCG/2 ML VIAL. IV PRN ×3 (06:32→23:32)
[2016-07-29] MEDS: IPRATROPIUM BROMIDE 0.5 MG/2.5 ML NEBU. NEB SCH ×4 (07:09→20:00)
[2016-07-29] MEDS: HYDROCORTISONE SOD SUCC/PF 100 MG/2 ML VIAL. IV SCH (08:27)
[2016-07-29] MEDS: PANTOPRAZOLE IV PUSH 40 MG VIAL. IVP SCH (08:27)
[2016-07-29] MEDS: MUPIROCIN 2 % NASAL OINTMENT 22GM TUBE. NS SCH ×2 (08:27→22:08)
[2016-07-29] MEDS: DOCUSATE SODIUM 100 MG CAPSULE. PO SCH ×2 (08:27→22:08)
--- NOTE | 2016-07-29 09:26 | PDOC ---
SUBJECTIVE ROS F/u for ^Na doing OK, redo swallow eval today OBJECTIVE Vital Signs Vital Signs Date Time Temp Pulse Resp B/P Pulse Ox O2 Delivery O2 Flow Rate FiO2 07/29/16 07:10 95 Room Air 07/29/16 07:02 18 07/29/16 07:00 98.4 57 160/74 98.4 I & 0 Intake and Output 07/29/16 07:00 Intake Total 1566 ml Output Total 4175 ml Balance -2609 ml IV Total 1566 ml Output Urine Total 4175 ml PHYSICAL EXAM Physical Exam General Appearance: Awake: Alert Oriented x 1-2 Neck: No JVD or JVP Chest: CTA Evan - rare rales Heart: S1 S2, ? murmur Abdomen - Soft NTND Extremities - + Edema DIAGNOSIS/ASSESSMENT ^Na - ct Na free TPN and watch trend, may need ^ water ? 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 - CTA Renals noted - no critical stenosis. Edema - restart Lasix in am COMMENT/RELEVANT DATA Meds Current Medications Medications (Trade) Dose Ordered Sig/Ann Marie Start Time Stop Time Status Last Admin Dose Admin Albumin Human (Plasmanate) 500 ml @ 125 mls/hr PRN Q6HRS PRN 07/16/16 08:30 07/24/16 14:38 DC 07/17/16 08:12 125 MLS/HR Albuterol Sulfate (Ventolin Neb Soln) 2.5 mg PRN Q2HR PRN 07/12/16 16:00 07/29/16 02:19 2.5 MG Albuterol/ Ipratropium (Duoneb) 3 ml QID 07/12/16 17:00 UNV Alteplase, Recombinant (Activase) 100 ml @ 50 mls/hr 1X ONCE 07/15/16 17:30 07/15/16 19:29 DC 07/15/16 17:30 50 MLS/HR Alteplase, Recombinant (Cathflo) 2 mg 1X ONCE 07/26/16 15:45 07/26/16 15:46 DC 07/26/16 16:15 2 MG Amino Acids/ Electrolytes/ Dextrose (Clinimix E 4.25%-5% Solution) 1,000 ml @ 80 mls/hr [id number] 07/23/16 12:00 07/27/16 14:18 DC 07/27/16 04:34 80 MLS/HR Atorvastatin Calcium (Lipitor) 40 mg HS 07/24/16 21:00 07/25/16 21:11 40 MG Atropine Sulfate 1 mg STK-MED ONCE 07/18/16 09:43 07/19/16 08:53 DC Atropine Sulfate 0.5 mg 0.5 mg STK-MED ONCE 07/18/16 09:43 07/18/16 09:44 DC Benzocaine (Hurricaine One) 1 spray STK-MED ONCE 07/12/16 12:00 07/13/16 16:00 DC Budesonide (Pulmicort) 0.5 mg RTBID 07/12/16 20:00 07/13/16 11:27 DC 07/13/16 07:30 0.5 MG Calcium Chloride 2,000 mg STK-MED ONCE 07/16/16 13:02 07/17/16 13:03 DC Ceftriaxone Sodium/Sodium Chloride (Rocephin/Iv Sodium Chloride 0.9% 50ml) 50 ml @ 100 mls/hr Q24H 07/14/16 12:00 07/20/16 12:29 DC 07/19/16 12:25 100 MLS/HR Chlorhexidine Gluconate (Peridex) 15 ml BID 07/13/16 09:00 07/23/16 09:42 DC 07/23/16 08:22 15 ML Clonidine HCl (Catapres Tts-2) 2 patch WEEKLY 07/26/16 10:00 07/26/16 10:34 2 PATCH Clonidine HCl 1 patch 1 patch WEEKLY 07/24/16 15:00 07/26/16 09:07 DC 07/24/16 19:05 1 PATCH Dextrose (Dextrose 50%-Water Syringe) 12.5 gm PRN Q15MIN PRN 07/26/16 13:30 07/26/16 13:27 25 GM Diltiazem HCl (Cardizem 24hr Cd) 240 mg DAILY 07/15/16 09:00 07/16/16 07:39 DC Diphenhydramine HCl (Benadryl) 25 mg PRN Q6HRS PRN 07/26/16 15:00 07/26/16 15:13 25 MG Docusate Sodium (Colace) 100 mg BID 07/21/16 21:00 07/25/16 21:11 100 MG Dopamine HCl/ Dextrose 400 mg STK-MED ONCE 07/15/16 11:00 07/16/16 08:06 DC Enoxaparin Sodium (Lovenox 100mg Syringe) 100 mg Q12HR 07/28/16 11:00 07/29/16 08:26 100 MG Enoxaparin Sodium (Lovenox 40mg Syringe) 40 mg DAILY 07/12/16 16:30 07/15/16 14:28 DC 07/15/16 08:54 40 MG Epinephrine HCl 4 mg STK-MED ONCE 07/16/16 13:02 07/17/16 13:03 DC Fentanyl Citrate (Fentanyl 2ml Vial) 50 mcg PRN Q2HR PRN 07/22/16 04:45 07/29/16 06:32 50 MCG Fentanyl Citrate (Fentanyl 600 Mcg/30 ml [employer]) 30 ml @ 0 mls/hr CONT PRN 07/16/16 07:15 07/26/16 09:04 DC 07/25/16 17:57 2.5 MLS/HR Furosemide (Lasix) 40 mg [id number] 07/27/16 10:30 07/28/16 11:01 DC 07/28/16 08:31 40 MG Glycopyrrolate (Robinul) 1 mg STK-MED ONCE 07/12/16 15:00 07/13/16 08:54 DC Guaifenesin (Mucinex) 600 mg BID 07/15/16 09:00 07/16/16 07:39 DC Heparin Sodium (Porcine) (Heparin Sodium) 1,600 unit PRN Q6HRS PRN 07/24/16 13:39 Cancel Heparin Sodium (Porcine) 2500 unit 2,500 unit 1X ONCE 07/16/16 09:15 07/16/16 09:16 DC 07/16/16 10:44 2,500 UNIT Heparin Sodium (Porcine) 7400 unit 7,400 unit 1X ONCE 07/19/16 09:45 07/19/16 09:53 DC 07/19/16 10:03 7,400 UNIT Heparin Sodium/ Dextrose 500 ml @ 0 mls/hr CONT PRN 07/19/16 09:45 07/25/16 13:12 DC 07/25/16 01:58 25.2 MLS/HR Heparin Sodium/ Sodium Chloride 1,000 unit 1X ONCE 07/17/16 11:15 07/17/16 11:26 DC 07/17/16 11:27 1,000 UNIT Heparin Sodium/ Sodium Chloride 1000 unit 1,000 unit 1X ONCE 07/15/16 12:00 07/15/16 12:01 DC Hydralazine HCl (Apresoline) 20 mg PRN Q4HRS PRN 07/24/16 14:45 07/27/16 07:47 20 MG Hydrochlorothiazide (Microzide) 12.5 mg DAILY 07/15/16 09:00 07/16/16 07:39 DC Hydrocortisone Sodium Succinate (Solu-Cortef) 25 mg BID 07/26/16 09:00 07/27/16 10:07 DC 07/27/16 09:48 25 MG Hydrocortisone Sodium Succinate 25 mg 25 mg DAILY 07/28/16 09:00 07/29/16 09:01 DC 07/29/16 08:27 25 MG Info 1 each PRN DAILY PRN 07/27/16 14:15 07/28/16 15:09 1 EACH Info (Anti-Coagulation Monitoring By Pharmacy) 1 each PRN DAILY PRN 07/16/16 08:45 Cancel Info (Do NOT chart on this entry -- for MONITORING) 1 each PRN DAILY PRN 07/17/16 11:30 07/19/16 11:29 DC Info 1 each 1 each PRN DAILY PRN 07/28/16 11:45 07/30/16 11:44 Insulin Aspart (Novolog) 0-9 UNITS Q6HRS 07/21/16 13:00 07/29/16 08:34 3 UNITS Insulin Aspart 10 units 10 units 1X ONCE 07/12/16 19:45 07/12/16 19:46 DC 07/12/16 19:41 10 UNITS Insulin Aspart 20 units 20 units 1X ONCE 07/18/16 08:15 07/18/16 11:56 DC 07/18/16 10:02 20 UNITS Insulin Detemir (Levemir) 25 units QHS 07/21/16 21:00 07/26/16 08:09 DC 07/25/16 21:16 25 UNITS Insulin Human Regular (Novolin R Vial) 10 unit 1X ONCE 07/12/16 13:15 07/12/16 13:16 DC 07/12/16 13:16 10 UNIT Insulin Human Regular 150 unit/ Sodium Chloride 151.5 ml @ 0 mls/hr CONT PRN 07/16/16 05:00 07/17/16 10:10 DC 07/17/16 02:26 5.15 MLS/HR Insulin Human Regular/Sodium Chloride (Novolin R Vial/ Iv Normal Saline 150ml) 151.5 ml @ 0 mls/hr CONT PRN 07/18/16 11:45 07/19/16 10:27 DC 07/18/16 13:54 13.3 MLS/HR Iohexol (Omnipaque 300 Mg/ml) 40 ml 1X ONCE 07/17/16 11:15 07/17/16 11:26 DC 07/17/16 11:26 40 ML Iohexol (Omnipaque 350 Mg/ml) 100 ml 1X ONCE 07/28/16 12:00 07/28/16 12:01 DC 07/28/16 12:01 100 ML Ipratropium Parker (Atrovent) 0.5 mg RTQID 07/16/16 12:00 07/29/16 07:09 0.5 MG Isosorbide Mononitrate (Imdur) 120 mg DAILY 07/15/16 09:00 07/16/16 07:39 DC Ketamine HCl 500 mg STK-MED ONCE 07/12/16 18:30 07/13/16 12:05 DC Lidocaine HCl 10 ml 1X ONCE 07/15/16 12:00 07/15/16 12:01 DC 07/15/16 11:57 10 ML Lidocaine HCl 20 ml 20 ml STK-MED ONCE 07/15/16 10:45 07/15/16 10:46 DC Lidocaine HCl 5 margie 5 margie STK-MED ONCE 07/12/16 12:00 07/13/16 16:00 DC Lidocaine/Sodium Bicarbonate (Buffered Lidocaine 1%) 3 ml 1X ONCE 07/17/16 11:15 07/17/16 11:26 DC 07/17/16 11:15 3 ML Lorazepam (Ativan) 1 mg PRN Q4HRS PRN 07/26/16 01:30 07/26/16 11:55 1 MG Magnesium Sulfate/ Dextrose 50 ml @ 25 mls/hr PRN DAILY PRN 07/27/16 10:15 07/27/16 14:19 DC Methylprednisolone Sodium Succinate (Solu-Medrol 40mg Vial) 60 mg DAILY 07/13/16 09:00 07/13/16 09:00 DC Methylprednisolone Sodium Succinate (Solu-Medrol 125mg Vial) 125 mg 1X ONCE 07/26/16 15:30 07/26/16 15:31 DC 07/26/16 15:11 125 MG Metoprolol Tartrate (Lopressor) 5 mg Q6HRS 07/22/16 12:30 07/26/16 09:08 DC 07/26/16 06:09 5 MG Midazolam HCl (Versed 100mg/ 100ml Premix) 100 ml @ As Directed STK-MED ONCE 07/15/16 11:03 07/15/16 11:04 DC Midazolam HCl (Versed) 4 mg PRN Q1HR PRN 07/22/16 04:47 07/22/16 05:33 4 MG Midazolam HCl 1 mg 1 mg PRN Q1HR PRN 07/20/16 11:15 07/22/16 04:46 DC Multi-Ingred Cream/Lotion/Oil/ Oint (Artificial Tears Eye Oint) 1 margie PRN Q1HR PRN 07/13/16 11:00 07/13/16 15:45 1 MARGIE Mupirocin (Bactroban) 1 margie BID 07/15/16 09:00 07/29/16 08:27 1 MARGIE Nicardipine HCl/ Sodium Chloride (Cardene/Iv Sodium Chloride 0.9% 250ml) 270 ml @ 0 mls/hr CONT PRN 07/25/16 08:45 07/26/16 09:04 DC 07/25/16 22:46 54 MLS/HR Non-Formulary Medication 2.5 gm DAILY 07/13/16 09:00 UNV Norepinephrine Bitartrate/Sodium Chloride (Levophed Vial/ Iv Sodium Chloride 0.9% 250ml) 258 ml @ 0 mls/hr CONT PRN 07/15/16 11:00 07/26/16 09:04 DC 07/17/16 00:51 25.15 MLS/HR Oxymetazoline HCl (Afrin) 2 spray 1X ONCE 07/12/16 18:30 07/12/16 18:31 DC Pantoprazole Sodium (Protonix Vial) 40 mg DAILYAC 07/23/16 04:47 07/29/16 08:27 40 MG Pantoprazole Sodium/Sodium Chloride (Protonix Iv/Iv Sodium Chloride 0.9% 100ml) 100 ml @ 10 mls/hr Q10H 07/17/16 06:45 07/21/16 12:21 DC 07/21/16 10:10 10 MLS/HR Potassium Acetate/ Magnesium Sulfate/ Calcium Gluconate/ Multivitamins/ Chromium/Copper/ Manganese/Seleni/ Zn/Insulin Human Regular/Total Parenteral Nutrition/Amino Acids/Dextrose/ Fat Emulsion Intravenous (Calcium Gluconate/ Infuvite Adult/ Multitrace-5 Conc/ Novolin R Vial/ Tpn - Tpn Flu... 1,920 ml @ 80 mls/hr TPN CONT 07/28/16 22:00 07/29/16 21:59 07/28/16 21:06 80 MLS/HR Potassium Chloride (KCl Premix 20meq) 50 ml @ 50 mls/hr PRN Q2HR PRN 07/27/16 10:15 07/27/16 14:19 DC Prednisone (Prednisone) 60 mg 1X ONCE 07/12/16 12:30 07/12/16 12:31 DC 07/12/16 12:40 60 MG Promethazine HCl/ Codeine (Phenergan With Codeine) 5 ml QID 07/12/16 17:00 07/13/16 17:18 DC Propofol (Diprivan) 1,000 mg STK-MED ONCE 07/17/16 16:36 07/19/16 08:22 DC Rivaroxaban (Xarelto) 15 mg [id number] 07/28/16 08:00 07/28/16 10:33 DC Rocuronium Parker (Zemuron) 50 mg STK-MED ONCE 07/12/16 15:00 07/13/16 08:54 DC Scopolamine (Transderm-Scop) 1 patch Q3DAYS 07/18/16 09:00 07/27/16 09:48 1 PATCH Scopolamine 1 patch 1 patch ONCE ONCE 07/15/16 23:30 07/15/16 23:31 DC Sodium Bicarbonate 50 meq 50 meq 1X ONCE 07/15/16 16:30 07/15/16 16:34 DC 07/15/16 16:30 50 MEQ Sodium Polystyrene Sulfonate (Kayexalate) 30 gm 1X ONCE 07/15/16 08:00 07/15/16 08:08 DC Sodium Polystyrene Sulfonate 30 gm 30 gm 1X ONCE 07/16/16 08:30 07/16/16 08:34 DC 07/16/16 08:41 30 GM Sodium Acetate/ Potassium Acetate/ Magnesium Sulfate/ Calcium Gluconate/ Multivitamins/ Chromium/Copper/ Manganese/Seleni/ Zn/Insulin Human Regular/Total Parenteral Nutrition/Amino Acids/Dextrose/ Fat Emulsion Intravenous (Calcium Gluconate/ Infuvite Adult/ Multitrace-5 Conc/ Novolin R Vi... 1,512 ml @ 63 mls/hr TPN CONT 07/18/16 22:00 07/19/16 21:59 DC 07/18/16 22:03 63 MLS/HR Sodium Bicarbonate 50 meq 1X ONCE 07/16/16 08:45 07/16/16 08:46 DC 07/16/16 08:41 50 MEQ Sodium Chloride (Iv Sodium Chloride 0.9% 1000ml Bag) 1,000 ml @ 75 mls/hr [id number] 07/20/16 11:15 07/23/16 11:50 DC 07/23/16 05:31 75 MLS/HR Sodium Chloride 40 meq/Sodium Acetate 40 meq/ Magnesium Sulfate 8 meq/Calcium Gluconate 5 meq/ Multivitamins 10 ml/Chromium/ Copper/Manganese/ Seleni/Zn 1 ml/ Insulin Human Regular 10 unit/ Total Parenteral Nutrition/Amino Acids/Dextrose/ Fat Emulsion Intravenous 1,512 ml @ 63 mls/hr TPN CONT 07/16/16 22:00 07/17/16 21:59 DC 07/16/16 21:53 63 MLS/HR Sodium Chloride/ Magnesium Sulfate/ Calcium Gluconate/ Multivitamins/ Chromium/Copper/ Manganese/Seleni/ Zn/Total Parenteral Nutrition/Amino Acids/Dextrose (Sodium Chloride/ Infuvite Adult/ Multitrace-5 Conc/ Tpn - Tpn Fluid/ Trophamine/ Dextrose 70%-Water Iv Soln) 1,512 ml @ 63 mls/hr TPN CONT 07/15/16 22:00 07/16/16 21:59 DC 07/15/16 21:27 63 MLS/HR Succinylcholine Chloride (Anectine) 200 mg STK-MED ONCE 07/12/16 18:00 07/13/16 09:05 DC Vasopressin 40 unit/Dextrose 102 ml @ 6 mls/hr CONT PRN 07/16/16 05:00 07/24/16 14:38 DC 07/17/16 13:33 6 MLS/HR Vecuronium Parker 10 mg 10 mg STK-MED ONCE 07/15/16 11:03 07/15/16 11:04 DC Vecuronium Parker/Dextrose (Norcuron) 100 ml @ 0 mls/hr CONT PRN 07/12/16 21:00 07/14/16 09:31 DC 07/13/16 20:48 2.58 MLS/HR Vecuronium Parker (Norcuron Bolus) 10 mg STK-MED ONCE 07/15/16 11:00 07/16/16 08:06 DC Warfarin Sodium (Coumadin Per Pharmacy) 1 each PRN DAILY PRN 07/19/16 09:45 07/26/16 15:34 DC 07/26/16 14:48 1 EACH Warfarin Sodium (Coumadin) 5 mg 1X WARF ONCE 07/26/16 16:00 07/26/16 16:01 Cancel Warfarin Sodium 7.5 mg 7.5 mg 1X WARF ONCE 07/23/16 16:00 07/23/16 16:01 DC 07/23/16 16:53 7.5 MG Lab Laboratory Tests Test 07/28/16 12:42 07/28/16 13:45 07/28/16 19:26 07/28/16 21:00 Glucose (Fingerstick) 221mg/dL (70-99) 207mg/dL (70-99) Potassium Level 3.9mmol/L (3.5-5.1) 3.8mmol/L (3.5-5.1) Test 07/28/16 23:13 07/29/16 02:30 07/29/16 05:33 07/29/16 08:02 Glucose (Fingerstick) 163mg/dL (70-99) 189mg/dL (70-99) 204mg/dL (70-99) White Blood Count 13.9x10^3/uL (4.0-11.0) Red Blood Count 3.38x10^6/uL (4.30-5.70) Hemoglobin 9.5g/dL (13.0-17.5) Hematocrit 29.6% (39.0-53.0) Mean Corpuscular Volume 88fL (79-100) Mean Corpuscular Hemoglobin 28pg (25-35) Mean Corpuscular Hemoglobin Concent 32g/dL (31-37) Red Cell Distribution Width 15.1% (11.5-14.5) Platelet Count 214x10^3/uL (140-400) Neutrophils (%) (Auto) 78% (31-73) Lymphocytes (%) (Auto) 12% (24-48) Monocytes (%) (Auto) 9% (0-9) Eosinophils (%) (Auto) 1% (0-3) Basophils (%) (Auto) 1% (0-3) Neutrophils # (Auto) 10.8x10^3uL (1.8-7.7) Lymphocytes # (Auto) 1.6x10^3/uL (1.0-4.8) Monocytes # (Auto) 1.3x10^3/uL (0.0-1.1) Eosinophils # (Auto) 0.1x10^3/uL (0.0-0.7) Basophils # (Auto) 0.1x10^3/uL (0.0-0.2) Sodium Level 146mmol/L (136-145) Potassium Level 3.6mmol/L (3.5-5.1) Chloride Level 109mmol/L (98-107) Carbon Dioxide Level 31mmol/L (21-32) Anion Gap 6 (6-14) Blood Urea Nitrogen 27mg/dL (8-26) Creatinine 1.0mg/dL (0.7-1.3) Estimated GFR (Cockcroft-Gault) 88.6 Glucose Level 165mg/dL (70-99) Calcium Level 8.4mg/dL (8.5-10.1) Phosphorus Level 3.9mg/dL (2.6-4.7) Magnesium Level 1.6mg/dL (1.8-2.4) FELIBERTO GIL MD Jul 29, 2016 09:26
[2016-07-29] MEDS: hydrALAZINE 20 MG/ML VIAL. IVP PRN (10:13)
--- NOTE | 2016-07-29 10:23 | PDOC ---
Subjective: Subjective: Doing okay. Would like to eat. Objective: Vital Signs: Vital Signs Date Time Temp Pulse Resp B/P Pulse Ox O2 Delivery O2 Flow Rate FiO2 07/29/16 10:13 70 190/84 07/29/16 07:10 95 Room Air 07/29/16 07:02 18 07/29/16 07:00 98.4 98.4 Labs: Laboratory Tests Test 07/28/16 12:42 07/28/16 13:45 07/28/16 19:26 07/28/16 21:00 Glucose (Fingerstick) 221mg/dL 207mg/dL Potassium Level 3.9mmol/L 3.8mmol/L Test 07/28/16 23:13 07/29/16 02:30 07/29/16 05:33 07/29/16 08:02 Glucose (Fingerstick) 163mg/dL 189mg/dL 204mg/dL White Blood Count 13.9x10^3/uL Red Blood Count 3.38x10^6/uL Hemoglobin 9.5g/dL Hematocrit 29.6% Mean Corpuscular Volume 88fL Mean Corpuscular Hemoglobin 28pg Mean Corpuscular Hemoglobin Concent 32g/dL Red Cell Distribution Width 15.1% Platelet Count 214x10^3/uL Neutrophils (%) (Auto) 78% Lymphocytes (%) (Auto) 12% Monocytes (%) (Auto) 9% Eosinophils (%) (Auto) 1% Basophils (%) (Auto) 1% Neutrophils # (Auto) 10.8x10^3uL Lymphocytes # (Auto) 1.6x10^3/uL Monocytes # (Auto) 1.3x10^3/uL Eosinophils # (Auto) 0.1x10^3/uL Basophils # (Auto) 0.1x10^3/uL Sodium Level 146mmol/L Potassium Level 3.6mmol/L Chloride Level 109mmol/L Carbon Dioxide Level 31mmol/L Anion Gap 6 Blood Urea Nitrogen 27mg/dL Creatinine 1.0mg/dL Estimated GFR (Cockcroft-Gault) 88.6 Glucose Level 165mg/dL Calcium Level 8.4mg/dL Phosphorus Level 3.9mg/dL Magnesium Level 1.6mg/dL PE: GEN: NAD, sitting on edge of bed, working w/ PT/OT LUNGS: CTAB HEART: RRR ABD: S/ND/NT NEURO/PSYCH: A & O 3 A/P: Dysphagia -following resp failure w/ intubation, cardiac arrest w/ cath, PE and DVT s/p TPA -on TPN, IV PPI Anemia -Hgb stable -- Follow swallow evals. SANDOR SARMIENTO Jul 29, 2016 10:23
--- NOTE | 2016-07-29 12:01 | PDOC ---
PROGRESS NOTES Chief Complaint Chief Complaint Angioedema - angioedema, likely 2/2 to ACEI; self extubated 07/14/16 - resolved - s/p CP arrest (PEA) sec to Multiple bilateral PE (07/15) - Non-occlusive thrombus, R leg (07/15) - COPD exacerbation - Low TSH levels in a critically ill patient - DM2; insulin requiring - Oliguric Hyperkalemic renal failure - Metabolic acidosis s/p arrest - Dyslipidemia on statin - Hypotensive shock, resolved and off pressors - Acute respiratory failure - intubated again (07/15) secondary to code blue ( PEA # 2) STRIDOR TONGUE SWELLING (07/26/16 HTN urgency History of Present Illness History of Present Illness Bp remains high despite 2 catapres patches and hydralazine iV STill NPO TPN running Accepted at [facility] CTA abd shows: occlusive R internal iliacs and GONZALO, plaquing in all other arteries Champion out - no voiding issues relayed to me PLAn: MIght need to involve vascular re the arterial occlusions above cont current BP regimen Future plans: (when able to take PO meds) Started xarelto 15 BID x 21 days then 20 PO qdaily x 3 mos - BUT unable to take PO Cont lovenox BID for now filter press tender to re eval again [facility] upon dc Vitals Vitals Vital Signs Date Time Temp Pulse Resp B/P Pulse Ox O2 Delivery O2 Flow Rate FiO2 07/29/16 11:17 97.6 78 20 168/72 95 Room Air 97.6 Physical Exam Physical Exam eyes- bilateral periorbital / subconjunctival edema General: Alert, Cooperative, No acute distress Heart: Regular rate, Normal S1, Normal S2, No murmurs, Gallops Lungs: Other (decreased breath sounds bilaterally. ) Abdomen: Normal bowel sounds, Soft, No tenderness, No hepatosplenomegaly, No masses Extremities: No clubbing, No cyanosis, No edema, Normal pulses, No tenderness/ swelling Skin: No rashes, Other (dry mucosal membranes ) Labs LABS Laboratory Tests Test 07/28/16 12:42 07/28/16 13:45 07/28/16 19:26 07/28/16 21:00 Glucose (Fingerstick) 221mg/dL (70-99) 207mg/dL (70-99) Potassium Level 3.9mmol/L (3.5-5.1) 3.8mmol/L (3.5-5.1) Test 07/28/16 23:13 07/29/16 02:30 07/29/16 05:33 07/29/16 08:02 Glucose (Fingerstick) 163mg/dL (70-99) 189mg/dL (70-99) 204mg/dL (70-99) White Blood Count 13.9x10^3/uL (4.0-11.0) Red Blood Count 3.38x10^6/uL (4.30-5.70) Hemoglobin 9.5g/dL (13.0-17.5) Hematocrit 29.6% (39.0-53.0) Mean Corpuscular Volume 88fL (79-100) Mean Corpuscular Hemoglobin 28pg (25-35) Mean Corpuscular Hemoglobin Concent 32g/dL (31-37) Red Cell Distribution Width 15.1% (11.5-14.5) Platelet Count 214x10^3/uL (140-400) Neutrophils (%) (Auto) 78% (31-73) Lymphocytes (%) (Auto) 12% (24-48) Monocytes (%) (Auto) 9% (0-9) Eosinophils (%) (Auto) 1% (0-3) Basophils (%) (Auto) 1% (0-3) Neutrophils # (Auto) 10.8x10^3uL (1.8-7.7) Lymphocytes # (Auto) 1.6x10^3/uL (1.0-4.8) Monocytes # (Auto) 1.3x10^3/uL (0.0-1.1) Eosinophils # (Auto) 0.1x10^3/uL (0.0-0.7) Basophils # (Auto) 0.1x10^3/uL (0.0-0.2) Sodium Level 146mmol/L (136-145) Potassium Level 3.6mmol/L (3.5-5.1) Chloride Level 109mmol/L (98-107) Carbon Dioxide Level 31mmol/L (21-32) Anion Gap 6 (6-14) Blood Urea Nitrogen 27mg/dL (8-26) Creatinine 1.0mg/dL (0.7-1.3) Estimated GFR (Cockcroft-Gault) 88.6 Glucose Level 165mg/dL (70-99) Calcium Level 8.4mg/dL (8.5-10.1) Phosphorus Level 3.9mg/dL (2.6-4.7) Magnesium Level 1.6mg/dL (1.8-2.4) Test 07/29/16 10:40 Glucose (Fingerstick) 126mg/dL (70-99) Review of Systems Review of Systems no cp, soa, abd pain, but is weak Assessment and Plan Assessmemt and Plan Problems Medical Problems: (1) COPD exacerbation Status: Acute (2) Hyperglycemia Status: Acute Problems: Comment Review of Relevant I have reviewed the following items valerie (where applicable) has been applied. Labs Laboratory Tests Test 07/27/16 13:40 07/27/16 17:50 07/27/16 17:56 07/28/16 00:01 Potassium Level 4.7mmol/L (3.5-5.1) 4.4mmol/L (3.5-5.1) Phosphorus Level 4.9mg/dL (2.6-4.7) Magnesium Level 2.1mg/dL (1.8-2.4) Glucose (Fingerstick) 379mg/dL (70-99) 242mg/dL (70-99) Test 07/28/16 00:30 07/28/16 06:02 07/28/16 06:40 07/28/16 12:42 Potassium Level 4.0mmol/L (3.5-5.1) 3.7mmol/L (3.5-5.1) Magnesium Level 1.8mg/dL (1.8-2.4) Glucose (Fingerstick) 167mg/dL (70-99) 221mg/dL (70-99) White Blood Count 17.7x10^3/uL (4.0-11.0) Red Blood Count 3.54x10^6/uL (4.30-5.70) Hemoglobin 10.0g/dL (13.0-17.5) Hematocrit 31.3% (39.0-53.0) Mean Corpuscular Volume 89fL (79-100) Mean Corpuscular Hemoglobin 28pg (25-35) Mean Corpuscular Hemoglobin Concent 32g/dL (31-37) Red Cell Distribution Width 15.1% (11.5-14.5) Platelet Count 221x10^3/uL (140-400) Neutrophils (%) (Auto) 82% (31-73) Lymphocytes (%) (Auto) 10% (24-48) Monocytes (%) (Auto) 7% (0-9) Eosinophils (%) (Auto) 1% (0-3) Basophils (%) (Auto) 1% (0-3) Neutrophils # (Auto) 14.4x10^3uL (1.8-7.7) Lymphocytes # (Auto) 1.8x10^3/uL (1.0-4.8) Monocytes # (Auto) 1.3x10^3/uL (0.0-1.1) Eosinophils # (Auto) 0.1x10^3/uL (0.0-0.7) Basophils # (Auto) 0.1x10^3/uL (0.0-0.2) Sodium Level 146mmol/L (136-145) Chloride Level 110mmol/L (98-107) Carbon Dioxide Level 29mmol/L (21-32) Anion Gap 7 (6-14) Blood Urea Nitrogen 37mg/dL (8-26) Creatinine 1.1mg/dL (0.7-1.3) Estimated GFR (Cockcroft-Gault) 79.4 Glucose Level 201mg/dL (70-99) Calcium Level 8.3mg/dL (8.5-10.1) Phosphorus Level 3.5mg/dL (2.6-4.7) Test 07/28/16 13:45 07/28/16 19:26 07/28/16 21:00 07/28/16 23:13 Potassium Level 3.9mmol/L (3.5-5.1) 3.8mmol/L (3.5-5.1) Glucose (Fingerstick) 207mg/dL (70-99) 163mg/dL (70-99) Test 07/29/16 02:30 07/29/16 05:33 07/29/16 08:02 07/29/16 10:40 White Blood Count 13.9x10^3/uL (4.0-11.0) Red Blood Count 3.38x10^6/uL (4.30-5.70) Hemoglobin 9.5g/dL (13.0-17.5) Hematocrit 29.6% (39.0-53.0) Mean Corpuscular Volume 88fL (79-100) Mean Corpuscular Hemoglobin 28pg (25-35) Mean Corpuscular Hemoglobin Concent 32g/dL (31-37) Red Cell Distribution Width 15.1% (11.5-14.5) Platelet Count 214x10^3/uL (140-400) Neutrophils (%) (Auto) 78% (31-73) Lymphocytes (%) (Auto) 12% (24-48) Monocytes (%) (Auto) 9% (0-9) Eosinophils (%) (Auto) 1% (0-3) Basophils (%) (Auto) 1% (0-3) Neutrophils # (Auto) 10.8x10^3uL (1.8-7.7) Lymphocytes # (Auto) 1.6x10^3/uL (1.0-4.8) Monocytes # (Auto) 1.3x10^3/uL (0.0-1.1) Eosinophils # (Auto) 0.1x10^3/uL (0.0-0.7) Basophils # (Auto) 0.1x10^3/uL (0.0-0.2) Sodium Level 146mmol/L (136-145) Potassium Level 3.6mmol/L (3.5-5.1) Chloride Level 109mmol/L (98-107) Carbon Dioxide Level 31mmol/L (21-32) Anion Gap 6 (6-14) Blood Urea Nitrogen 27mg/dL (8-26) Creatinine 1.0mg/dL (0.7-1.3) Estimated GFR (Cockcroft-Gault) 88.6 Glucose Level 165mg/dL (70-99) Calcium Level 8.4mg/dL (8.5-10.1) Phosphorus Level 3.9mg/dL (2.6-4.7) Magnesium Level 1.6mg/dL (1.8-2.4) Glucose (Fingerstick) 189mg/dL (70-99) 204mg/dL (70-99) 126mg/dL (70-99) Laboratory Tests Test 07/28/16 12:42 07/28/16 13:45 07/28/16 19:26 07/28/16 21:00 Glucose (Fingerstick) 221mg/dL (70-99) 207mg/dL (70-99) Potassium Level 3.9mmol/L (3.5-5.1) 3.8mmol/L (3.5-5.1) Test 07/28/16 23:13 07/29/16 02:30 07/29/16 05:33 07/29/16 08:02 Glucose (Fingerstick) 163mg/dL (70-99) 189mg/dL (70-99) 204mg/dL (70-99) White Blood Count 13.9x10^3/uL (4.0-11.0) Red Blood Count 3.38x10^6/uL (4.30-5.70) Hemoglobin 9.5g/dL (13.0-17.5) Hematocrit 29.6% (39.0-53.0) Mean Corpuscular Volume 88fL (79-100) Mean Corpuscular Hemoglobin 28pg (25-35) Mean Corpuscular Hemoglobin Concent 32g/dL (31-37) Red Cell Distribution Width 15.1% (11.5-14.5) Platelet Count 214x10^3/uL (140-400) Neutrophils (%) (Auto) 78% (31-73) Lymphocytes (%) (Auto) 12% (24-48) Monocytes (%) (Auto) 9% (0-9) Eosinophils (%) (Auto) 1% (0-3) Basophils (%) (Auto) 1% (0-3) Neutrophils # (Auto) 10.8x10^3uL (1.8-7.7) Lymphocytes # (Auto) 1.6x10^3/uL (1.0-4.8) Monocytes # (Auto) 1.3x10^3/uL (0.0-1.1) Eosinophils # (Auto) 0.1x10^3/uL (0.0-0.7) Basophils # (Auto) 0.1x10^3/uL (0.0-0.2) Sodium Level 146mmol/L (136-145) Potassium Level 3.6mmol/L (3.5-5.1) Chloride Level 109mmol/L (98-107) Carbon Dioxide Level 31mmol/L (21-32) Anion Gap 6 (6-14) Blood Urea Nitrogen 27mg/dL (8-26) Creatinine 1.0mg/dL (0.7-1.3) Estimated GFR (Cockcroft-Gault) 88.6 Glucose Level 165mg/dL (70-99) Calcium Level 8.4mg/dL (8.5-10.1) Phosphorus Level 3.9mg/dL (2.6-4.7) Magnesium Level 1.6mg/dL (1.8-2.4) Test 07/29/16 10:40 Glucose (Fingerstick) 126mg/dL (70-99) Microbiology 07/15/16 Blood Culture - Final, Complete NO GROWTH AFTER 5 DAYS 07/14/16 Urine Culture - Final, Complete 07/14/16 Urine Culture Result 1 (MARÍA) - Final, Complete 07/14/16 Urine Culture Result 2 (MARÍA) - Final, Complete 07/14/16 Antimicrobic Susceptibility - Final, Complete Medications Current Medications Albuterol/ Ipratropium (Duoneb) 6 ml 1X ONCE NEB Last administered on 12:34; Start 07/12/16 at 12:30; Stop 07/12/16 at 12:31; Status DC Prednisone 60 mg 60 mg 1X ONCE PO Last administered on 07/12/16 12:40; Start 07/12/16 at 12:30; Stop 07/12/16 at 12:31; Status DC Sodium Chloride (Iv Sodium Chloride 0.9% 1000ml Bag) 1,000 ml @ 1,000 mls/hr 1X ONCE IV Last administered on 07/12/16 13:12; Start 07/12/16 at 13:15; Stop 07/12/16 at 14:14; Status DC Insulin Human Regular (Novolin R Vial) 10 unit 1X ONCE IV Last administered on 07/12/16 13:16; Start 07/12/16 at 13:15; Stop 07/12/16 at 13:16; Status DC Diphenhydramine HCl (Benadryl) 50 mg STK-MED ONCE .ROUTE ; Start 07/12/16 at 14: 55; Stop 07/12/16 at 14:56; Status DC Diphenhydramine HCl (Benadryl) 50 mg 1X ONCE IVP Last administered on 15:15; Start 07/12/16 at 15:15; Stop 07/12/16 at 15:16; Status DC Atorvastatin Calcium (Lipitor) 40 mg HS PO Last administered on 07/23/16 20:45 ; Start 07/12/16 at 21:00; Stop 07/24/16 at 13:39; Status DC Diltiazem HCl (Cardizem 24hr Cd) 240 mg DAILY PO ; Start 07/12/16 at 16:30; Stop 07/13/16 at 17:18; Status DC Insulin Aspart (Novolog) 10 units TIDAC SQ ; Start 07/12/16 at 16:30; Stop 07/12 at 16:30; Status DC Insulin Detemir (Levemir) 20 units QHS SQ ; Start 07/12/16 at 21:00; Stop at 21:00; Status DC Promethazine HCl/ Codeine (Phenergan With Codeine) 5 ml QID PO ; Start 07/12/16 at 17:00; Stop 07/13/16 at 17:18; Status DC Non-Formulary Medication 2 puff BID IH ; Start 07/12/16 at 21:00; Status UNV Non-Formulary Medication 2.5 gm DAILY IH ; Start 07/13/16 at 09:00; Status UNV Budesonide (Pulmicort) 0.5 mg RTBID NEB Last administered on 07/13/16 07:30; Start 07/12/16 at 20:00; Stop 07/13/16 at 11:27; Status DC Albuterol/ Ipratropium (Duoneb) 3 ml RTQID NEB Last administered on 07/16/16 07:47; Start 07/12/16 at 20:00; Stop 07/16/16 at 08:38; Status DC Methylprednisolone Sodium Succinate (Solu-Medrol 40mg Vial) 60 mg 1X ONCE IV Last administered on 07/12/16 16:06; Start 07/12/16 at 16:30; Stop 07/12/16 at 16:31; Status DC Methylprednisolone Sodium Succinate (Solu-Medrol 40mg Vial) 60 mg DAILY IV ; Start 07/13/16 at 09:00; Stop 07/13/16 at 09:00; Status DC Pantoprazole Sodium (Protonix Vial) 40 mg DAILY IVP Last administered on 08:43; Start 07/13/16 at 09:00; Stop 07/17/16 at 20:37; Status DC Diphenhydramine HCl 25 mg 25 mg PRN Q6HRS PRN IVP ANAPHYLAXIS Last administered on 07/12/16 16:06; Start 07/12/16 at 16:00; Stop 07/23/16 at 04:47 ; Status DC Sodium Chloride (Iv Sodium Chloride 0.9% 1000ml Bag) 1,000 ml @ 150 mls/hr Q6H40M IV Last administered on 07/14/16 01:21; Start 07/12/16 at 16:30; Stop 07/14/16 at 09:31; Status DC Albuterol/ Ipratropium (Duoneb) 3 ml QID NEB ; Start 07/12/16 at 17:00; Status UNV Albuterol Sulfate (Ventolin Neb Soln) 2.5 mg PRN Q2HR PRN NEB SHORTNESS OF BREATH Last administered on 07/29/16 02:19; Start 07/12/16 at 16:00 Insulin Aspart (Novolog) 0-9 UNITS QID SQ Last administered on 07/14/16 08:37 ; Start 07/12/16 at 17:00; Stop 07/14/16 at 09:31; Status DC Dextrose 12.5 gm PRN Q15MIN PRN IV SEE COMMENTS; Start 07/12/16 at 16:00; Stop 07/15/16 at 12:46; Status DC Insulin Detemir (Levemir) 15 units QHS SQ ; Start 07/12/16 at 21:00; Stop at 21:00; Status DC Enoxaparin Sodium (Lovenox 40mg Syringe) 40 mg DAILY SQ Last administered on 08:54; Start 07/12/16 at 16:30; Stop 07/15/16 at 14:28; Status DC Insulin Detemir (Levemir) 20 units QHS SQ Last administered on 07/12/16 23:49 ; Start 07/12/16 at 21:00; Stop 07/13/16 at 15:18; Status DC Succinylcholine Chloride 200 mg 200 mg STK-MED ONCE .ROUTE ; Start 07/12/16 at 17:46; Stop 07/12/16 at 17:47; Status DC Propofol (Diprivan) 100 ml @ As Directed STK-MED ONCE IV ; Start 07/12/16 at 17 :46; Stop 07/12/16 at 17:47; Status DC Lidocaine HCl 100 mg STK-MED ONCE .ROUTE ; Start 07/12/16 at 18:02; Stop at 18:03; Status DC Ketamine HCl 500 mg 1X ONCE IV ; Start 07/12/16 at 18:30; Stop 07/12/16 at 18: 31; Status DC Midazolam HCl (Versed) 5 mg STK-MED ONCE .ROUTE ; Start 07/12/16 at 18:14; Stop 07/12/16 at 18:15; Status DC Midazolam HCl (Versed) 2 mg 1X ONCE IV ; Start 07/12/16 at 18:30; Stop at 18:31; Status DC Glycopyrrolate (Robinul) 1 mg 1X ONCE IV ; Start 07/12/16 at 18:30; Stop at 18:31; Status DC Oxymetazoline HCl (Afrin) 2 spray 1X ONCE NS ; Start 07/12/16 at 18:30; Stop at 18:31; Status DC Lidocaine HCl 30 ml STK-MED ONCE .ROUTE ; Start 07/12/16 at 18:19; Stop at 18:20; Status DC Vecuronium [place] 6 mg 6 mg PRN Q4HRS PRN IV ANXIETY / AGITATION Last administered on 07/12/16 19:55; Start 07/12/16 at 19:00; Stop 07/15/16 at 07:58 ; Status DC Propofol (Diprivan) 100 ml @ 0 mls/hr CONT PRN IV SEE I/O RECORD Last administered on 07/14/16 13:42; Start 07/12/16 at 19:00; Stop 07/15/16 at 07:58 ; Status DC Insulin Aspart 10 units 10 units 1X ONCE SQ Last administered on 07/12/16 19: 41; Start 07/12/16 at 19:45; Stop 07/12/16 at 19:46; Status DC Vecuronium [place] 100 mg/ Dextrose 100 ml @ 0 mls/hr CONT PRN IV SEE I/O RECORD Last administered on 07/13/16 20:48; Start 07/12/16 at 21:00; Stop 07/14 at 09:31; Status DC Fentanyl Citrate (Fentanyl 600 Mcg/30 ml TELEVISION ANTEN[employer] INSTALLER) 30 ml @ 0 mls/hr CONT PRN IV PROTOCOL Last administered on 07/14/16 09:33; Start 07/12/16 at 22:00; Stop at 07:58; Status DC Chlorhexidine Gluconate (Peridex) 15 ml BID MM Last administered on 07/23/16 08:22; Start 07/13/16 at 09:00; Stop 07/23/16 at 09:42; Status DC Methylprednisolone Sodium Succinate (Solu-Medrol 125mg Vial) 125 mg BID IV Last administered on 07/14/16 21:02; Start 07/13/16 at 09:00; Stop 07/15/16 at 07:58; Status DC Rocuronium [place] (Zemuron) 50 mg STK-MED ONCE .ROUTE ; Start 07/12/16 at 15:00 ; Stop 07/13/16 at 08:54; Status DC Glycopyrrolate (Robinul) 1 mg STK-MED ONCE .ROUTE ; Start 07/12/16 at 15:00; Stop 07/13/16 at 08:54; Status DC Lidocaine HCl 30 ml STK-MED ONCE .ROUTE ; Start 07/12/16 at 18:00; Stop at 09:05; Status DC Midazolam HCl (Versed) 5 mg STK-MED ONCE .ROUTE ; Start 07/12/16 at 18:00; Stop 07/13/16 at 09:05; Status DC Propofol (Diprivan) 1,000 mg STK-MED ONCE IV ; Start 07/12/16 at 18:00; Stop at 09:05; Status DC Succinylcholine Chloride (Anectine) 200 mg STK-MED ONCE .ROUTE ; Start 07/12/16 at 18:00; Stop 07/13/16 at 09:05; Status DC Multi-Ingred Cream/Lotion/Oil/ Oint (Artificial Tears Eye Oint) 1 margie PRN Q1HR PRN OU DRY EYE Last administered on 07/13/16 15:45; Start 07/13/16 at 11:00 Ketamine HCl 500 mg STK-MED ONCE .ROUTE ; Start 07/12/16 at 18:30; Stop at 12:05; Status DC Insulin Aspart (Novolog) 10 units 1X STAT SQ Last administered on 07/13/16 12 :36; Start 07/13/16 at 12:17; Stop 07/13/16 at 12:20; Status DC Insulin Aspart (Novolog) 10 units 1X ONCE SQ Last administered on 07/13/16 14 :31; Start 07/13/16 at 14:30; Stop 07/13/16 at 14:31; Status DC Insulin Detemir (Levemir) 40 units QHS SQ Last administered on 07/13/16 20:50 ; Start 07/13/16 at 21:00; Stop 07/14/16 at 09:31; Status DC Benzocaine (Hurricaine One) 1 spray STK-MED ONCE .ROUTE ; Start 07/12/16 at 12: 00; Stop 07/13/16 at 16:00; Status DC Lidocaine HCl 5 margie 5 margie STK-MED ONCE TP ; Start 07/12/16 at 12:00; Stop at 16:00; Status DC Insulin Human Regular/Sodium Chloride (Novolin R Vial/ Iv Normal Saline 150ml) 151.5 ml @ 0 mls/hr CONT PRN IV SEE I/O RECORD Last administered on 07/14/16 10:01; Start 07/14/16 at 09:30; Stop 07/15/16 at 07:58; Status DC Info 1 each 1 each PRN DAILY PRN MC SEE COMMENTS Last administered on 08:27; Start 07/14/16 at 09:30; Stop 07/19/16 at 16:30; Status DC Magnesium Sulfate/ Dextrose 50 ml @ 25 mls/hr PRN DAILY PRN IV for Mag < 1.7 on am labs; Start 07/14/16 at 11:15; Stop 07/15/16 at 07:58; Status DC Sodium Chloride 500 ml @ 500 mls/hr QID PRN IV UO< 30cc/hr over previous 6hrs ; Start 07/14/16 at 11:15; Stop 07/14/16 at 11:26; Status DC Sodium Chloride 500 ml @ 500 mls/hr PRN QID PRN IV UO< 30cc/hr over previous 6hrs Last administered on 07/16/16 10:00; Start 07/14/16 at 11:26; Stop at 09:07; Status DC Ceftriaxone Sodium 1 gm/ Sodium Chloride 50 ml @ 100 mls/hr Q24H IV Last administered on 07/19/16 12:25; Start 07/14/16 at 12:00; Stop 07/20/16 at 12:29 ; Status DC Sodium Chloride/ Magnesium Sulfate/ Calcium Gluconate/ Multivitamins/ Chromium/ Copper/ Manganese/Seleni/ Zn/Total Parenteral Nutrition/Amino Acids/Dextrose ( Sodium Chloride/ Infuvite Adult/ Multitrace-5 Conc/ Tpn - Tpn Fluid/ Trophamine / Dextrose 70%-Water Iv Soln) 1,512 ml @ 63 mls/hr TPN CONT IV Last administered on 07/14/16 22:29; Start 07/14/16 at 22:00; Stop 07/15/16 at 21:59 ; Status DC Hydralazine HCl (Apresoline) 10 mg PRN Q4HRS PRN IVP ELEVATED BP, SEE COMMENTS Last administered on 07/24/16 13:01; Start 07/14/16 at 22:30; Stop 07/24/16 at 14 :38; Status DC Methylprednisolone Sodium Succinate (Solu-Medrol 125mg Vial) 125 mg DAILY IV Last administered on 07/15/16 08:55; Start 07/15/16 at 09:00; Stop 07/16/16 at 08:35; Status DC Insulin Aspart (Novolog) 0-9 UNITS TIDWMEALS SQ Last administered on 07/15/16 16:16; Start 07/15/16 at 08:00; Stop 07/16/16 at 07:16; Status DC Dextrose 12.5 gm PRN Q15MIN PRN IV SEE COMMENTS; Start 07/15/16 at 08:00; Stop 07/19/16 at 10:53; Status DC Insulin Detemir (Levemir) 20 units QHS SQ Last administered on 07/15/16 21:48 ; Start 07/15/16 at 21:00; Stop 07/16/16 at 07:16; Status DC Insulin Aspart (Novolog) 10 units TIDAC SQ ; Start 07/15/16 at 11:30; Stop 07/16 at 07:16; Status DC Sodium Polystyrene Sulfonate (Kayexalate) 30 gm 1X ONCE PO ; Start 07/15/16 at 08:00; Stop 07/15/16 at 08:08; Status DC Hydrochlorothiazide (Microzide) 12.5 mg DAILY PO ; Start 07/15/16 at 09:00; Stop 07/16/16 at 07:39; Status DC Isosorbide Mononitrate (Imdur) 120 mg DAILY PO ; Start 07/15/16 at 09:00; Stop 07/15/16 at 09:00; Status DC Diltiazem HCl (Cardizem 24hr Cd) 240 mg DAILY PO ; Start 07/15/16 at 09:00; Stop 07/16/16 at 07:39; Status DC Guaifenesin (Mucinex) 600 mg BID PO ; Start 07/15/16 at 09:00; Stop 07/16/16 at 07:39; Status DC Mupirocin (Bactroban) 1 margie BID NS Last administered on 07/29/16 08:27; Start 07/15/16 at 09:00 Isosorbide Mononitrate (Imdur) 120 mg DAILY PO ; Start 07/15/16 at 09:00; Stop 07/16/16 at 07:39; Status DC Sodium Bicarbonate 50 meq 1X ONCE IV Last administered on 07/15/16 15:22; Start 07/15/16 at 10:45; Stop 07/15/16 at 10:46; Status DC Sodium Bicarbonate 50 meq 50 meq STK-MED ONCE .ROUTE ; Start 07/15/16 at 10:34; Stop 07/15/16 at 10:35; Status DC Dopamine HCl/ Dextrose 250 ml @ As Directed STK-MED ONCE IV ; Start 07/15/16 at 10:37; Stop 07/15/16 at 10:38; Status DC Midazolam HCl (Versed) 5 mg STK-MED ONCE .ROUTE ; Start 07/15/16 at 10:41; Stop 07/15/16 at 10:42; Status DC Iohexol 100 ml 100 ml STK-MED ONCE .ROUTE ; Start 07/15/16 at 10:45; Stop at 10:46; Status DC Heparin Sodium/ Sodium Chloride 1,500 ml @ As Directed STK-MED ONCE .ROUTE ; Start 07/15/16 at 10:45; Stop 07/15/16 at 10:46; Status DC Lidocaine HCl 20 ml 20 ml STK-MED ONCE .ROUTE ; Start 07/15/16 at 10:45; Stop at 10:46; Status DC Dopamine HCl/ Dextrose 250 ml @ 16.255 mls/ hr CONT PRN IV SEE I/O RECORD Last administered on 07/16/16 23:10; Start 07/15/16 at 11:00; Stop 07/26/16 at 09:04; Status DC Sodium Chloride 1,000 ml @ 1,000 mls/hr 1X ONCE IV Last administered on 11:00; Start 07/15/16 at 11:00; Stop 07/15/16 at 11:59; Status DC Norepinephrine Bitartrate/Sodium Chloride (Levophed Vial/ Iv Sodium Chloride 0.9 % 250ml) 258 ml @ 0 mls/hr CONT PRN IV SEE I/O RECORD Last administered on 07/17 00:51; Start 07/15/16 at 11:00; Stop 07/26/16 at 09:04; Status DC Midazolam HCl (Versed) 5 mg STK-MED ONCE .ROUTE ; Start 07/15/16 at 10:54; Stop 07/15/16 at 10:55; Status DC Fentanyl Citrate (Fentanyl 2ml Vial) 100 mcg STK-MED ONCE .ROUTE ; Start at 11:02; Stop 07/15/16 at 11:03; Status DC Vecuronium [place] 10 mg 10 mg STK-MED ONCE IV ; Start 07/15/16 at 11:03; Stop 07/15/16 at 11:04; Status DC Midazolam HCl (Versed 100mg/ 100ml Premix) 100 ml @ As Directed STK-MED ONCE IV ; Start 07/15/16 at 11:03; Stop 07/15/16 at 11:04; Status DC Iohexol (Omnipaque 300 Mg/ml) 112 ml 1X ONCE IART Last administered on 11:56; Start 07/15/16 at 12:00; Stop 07/15/16 at 12:01; Status DC Lidocaine HCl 10 ml 1X ONCE IJ Last administered on 07/15/16 11:57; Start at 12:00; Stop 07/15/16 at 12:01; Status DC Heparin Sodium/ Sodium Chloride 1000 unit 1,000 unit 1X ONCE IART ; Start 07/15 at 12:00; Stop 07/15/16 at 12:01; Status DC Sodium Chloride/ Magnesium Sulfate/ Calcium Gluconate/ Multivitamins/ Chromium/ Copper/ Manganese/Seleni/ Zn/Total Parenteral Nutrition/Amino Acids/Dextrose ( Sodium Chloride/ Infuvite Adult/ Multitrace-5 Conc/ Tpn - Tpn Fluid/ Trophamine / Dextrose 70%-Water Iv Soln) 1,512 ml @ 63 mls/hr TPN CONT IV Last administered on 07/15/16 21:27; Start 07/15/16 at 22:00; Stop 07/16/16 at 21:59 ; Status DC Iohexol (Omnipaque 300 Mg/ml) 75 ml 1X ONCE IV Last administered on 07/15/16 13:43; Start 07/15/16 at 13:15; Stop 07/15/16 at 13:16; Status DC Info (Do NOT chart on this entry -- for MONITORING) 1 each PRN DAILY PRN MC SEE COMMENTS; Start 07/15/16 at 13:15; Stop 07/17/16 at 13:14; Status DC Heparin Sodium (Porcine) 7000 unit 7,000 unit 1X ONCE IV Last administered on 07/15/16 15:27; Start 07/15/16 at 14:45; Stop 07/15/16 at 14:46; Status DC Heparin Sodium/ Dextrose 500 ml @ 0 mls/hr CONT PRN IV SEE I/O RECORD Last administered on 07/17/16 18:41; Start 07/15/16 at 14:30; Stop 07/18/16 at 10:21 ; Status DC Heparin Sodium (Porcine) 2,600 unit PRN Q6HRS PRN IV FOR UFH LEVEL LESS THAN 0.2; Start 07/15/16 at 14:30; Stop 07/18/16 at 10:21; Status DC Heparin Sodium (Porcine) 1,300 unit PRN Q6HRS PRN IV FOR UFH LEVEL 0.2 - 0.29; Start 07/15/16 at 14:30; Stop 07/18/16 at 10:21; Status DC Warfarin Sodium (Coumadin Per Pharmacy) 1 each PRN DAILY PRN MC PER PROTOCOL; Start 07/15/16 at 14:30; Stop 07/15/16 at 14:30; Status DC Sodium Bicarbonate 50 meq 50 meq 1X ONCE IV Last administered on 07/15/16 16: 30; Start 07/15/16 at 16:30; Stop 07/15/16 at 16:34; Status DC Alteplase, Recombinant (Activase) 100 ml @ 50 mls/hr 1X ONCE IV Last administered on 07/15/16 17:30; Start 07/15/16 at 17:30; Stop 07/15/16 at 19:29 ; Status DC Fentanyl Citrate (Fentanyl 2ml Vial) 25 mcg PRN Q1HR PRN IV COMM; Start at 22:30; Stop 07/16/16 at 07:17; Status DC Fentanyl Citrate (Fentanyl 2ml Vial) 50 mcg PRN Q1HR PRN IV COMM Last administered on 07/16/16 05:30; Start 07/15/16 at 22:30; Stop 07/16/16 at 07:17 ; Status DC Scopolamine (Transderm-Scop) 1 patch Q3DAYS TD Last administered on 07/27/16 09 :48; Start 07/18/16 at 09:00 Scopolamine 1 patch 1 patch ONCE ONCE TD ; Start 07/15/16 at 23:30; Stop at 23:31; Status DC Sodium Chloride 1,000 ml @ 1,000 mls/hr 1X ONCE IV Last administered on 02:38; Start 07/16/16 at 01:00; Stop 07/16/16 at 01:59; Status DC Midazolam HCl 100 ml @ As Directed STK-MED ONCE IV ; Start 07/16/16 at 01:00; Stop 07/16/16 at 01:01; Status DC Midazolam HCl 100 ml @ 0 mls/hr CONT PRN IV SEE I/O RECORD Last administered on 07/19/16 07:52; Start 07/16/16 at 01:15; Stop 07/26/16 at 09:04; Status DC Vasopressin 40 unit/Dextrose 102 ml @ 6 mls/hr CONT PRN IV SEE I/O RECORD Last administered on 07/17/16 13:33; Start 07/16/16 at 05:00; Stop 07/24/16 at 14:38 ; Status DC Insulin Human Regular 150 unit/ Sodium Chloride 151.5 ml @ 0 mls/hr CONT PRN IV SEE I/O RECORD Last administered on 07/17/16 02:26; Start 07/16/16 at 05:00 ; Stop 07/17/16 at 10:10; Status DC Fentanyl Citrate (Fentanyl 600 Mcg/30 ml [employer]) 30 ml @ 0 mls/hr CONT PRN IV PROTOCOL Last administered on 07/25/16 17:57; Start 07/16/16 at 07:15; Stop 07/26 at 09:04; Status DC Vecuronium [place] (Norcuron Bolus) 10 mg STK-MED ONCE IV ; Start 07/15/16 at 11 :00; Stop 07/16/16 at 08:06; Status DC Fentanyl Citrate (Fentanyl 2ml Vial) 100 mcg STK-MED ONCE .ROUTE ; Start at 11:00; Stop 07/16/16 at 08:06; Status DC Midazolam HCl (Versed) 10 mg STK-MED ONCE .ROUTE ; Start 07/15/16 at 11:00; Stop 07/16/16 at 08:06; Status DC Dopamine HCl/ Dextrose 400 mg STK-MED ONCE IV ; Start 07/15/16 at 11:00; Stop at 08:06; Status DC Sodium Bicarbonate 50 meq STK-MED ONCE .ROUTE ; Start 07/15/16 at 11:00; Stop at 08:06; Status DC Hydrocortisone Sodium Succinate (Solu-Cortef) 100 mg Q8HRS IV Last administered on 07/19/16 05:50; Start 07/16/16 at 09:00; Stop 07/19/16 at 09:30 ; Status DC Sodium Polystyrene Sulfonate 30 gm 30 gm 1X ONCE PO Last administered on 08:41; Start 07/16/16 at 08:30; Stop 07/16/16 at 08:34; Status DC Albumin Human (Plasmanate) 500 ml @ 125 mls/hr PRN Q6HRS PRN IV for CVP < 10; MAP < 65 Last administered on 07/17/16 08:12; Start 07/16/16 at 08:30; Stop 07/24/16 at 14:38; Status DC Sodium Bicarbonate 50 meq 1X ONCE IV Last administered on 07/16/16 08:41; Start 07/16/16 at 08:45; Stop 07/16/16 at 08:46; Status DC Info (Anti-Coagulation Monitoring By Pharmacy) 1 each PRN DAILY PRN MC SEE COMMENTS; Start 07/16/16 at 08:45; Status Cancel Ipratropium [place] (Atrovent) 0.5 mg RTQID NEB Last administered on 07/29/16 07:09; Start 07/16/16 at 12:00 Lidocaine/Sodium Bicarbonate (Buffered Lidocaine 1%) 3 ml 1X ONCE IJ Last administered on 07/16/16 10:43; Start 07/16/16 at 09:15; Stop 07/16/16 at 09:16 ; Status DC Heparin Sodium/ Sodium Chloride 60 unit 1X ONCE IV Last administered on 10:44; Start 07/16/16 at 09:15; Stop 07/16/16 at 09:16; Status DC Heparin Sodium (Porcine) 2500 unit 2,500 unit 1X ONCE INT CAT Last administered on 07/16/16 10:44; Start 07/16/16 at 09:15; Stop 07/16/16 at 09:16 ; Status DC Sodium Chloride 40 meq/Sodium Acetate 40 meq/ Magnesium Sulfate 8 meq/Calcium Gluconate 5 meq/ Multivitamins 10 ml/Chromium/ Copper/Manganese/ Seleni/Zn 1 ml / Insulin Human Regular 10 unit/ Total Parenteral Nutrition/Amino Acids/Dextrose / Fat Emulsion Intravenous 1,512 ml @ 63 mls/hr TPN CONT IV Last administered on 07/16/16 21:53; Start 07/16/16 at 22:00; Stop 07/17/16 at 21:59 ; Status DC Pantoprazole Sodium 80 mg/ Sodium Chloride 100 ml @ 10 mls/hr Q10H IV Last administered on 07/21/16 10:10; Start 07/17/16 at 06:45; Stop 07/21/16 at 12:21 ; Status DC Sodium Acetate/ Potassium Acetate/ Magnesium Sulfate/ Calcium Gluconate/ Multivitamins/ Chromium/Copper/ Manganese/Seleni/ Zn/Insulin Human Regular/ Total Parenteral Nutrition/Amino Acids/Dextrose/ Fat Emulsion Intravenous ( Calcium Gluconate/ Infuvite Adult/ Multitrace-5 Conc/ Novolin R Vi... 1,512 ml @ 63 mls/hr TPN CONT IV Last administered on 07/17/16 21:49; Start 07/17/16 at 22:00; Stop 07/18/16 at 21:59; Status DC Insulin Detemir (Levemir) 25 units BID SQ Last administered on 07/17/16 20:51 ; Start 07/17/16 at 10:30; Stop 07/18/16 at 08:12; Status DC Insulin Aspart (Novolog) 0-9 UNITS TIDWMEALS SQ Last administered on 07/18/16 10:03; Start 07/17/16 at 12:00; Stop 07/18/16 at 11:55; Status DC Dextrose 12.5 gm PRN Q15MIN PRN IV SEE COMMENTS; Start 07/17/16 at 10:15; Status UNV Iohexol (Omnipaque 300 Mg/ml) 100 ml STK-MED ONCE .ROUTE ; Start 07/17/16 at 10: 45; Stop 07/17/16 at 10:46; Status DC Lidocaine/Sodium Bicarbonate 20 ml 20 ml STK-MED ONCE IJ ; Start 07/17/16 at 10: 45; Stop 07/17/16 at 10:46; Status DC Heparin Sodium/ Sodium Chloride 500 ml @ As Directed STK-MED ONCE .ROUTE ; Start 07/17/16 at 10:46; Stop 07/17/16 at 10:47; Status DC Heparin Sodium/ Sodium Chloride 1,000 unit 1X ONCE IART Last administered on 11:27; Start 07/17/16 at 11:15; Stop 07/17/16 at 11:26; Status DC Lidocaine/Sodium Bicarbonate (Buffered Lidocaine 1%) 3 ml 1X ONCE IJ Last administered on 07/17/16 11:15; Start 07/17/16 at 11:15; Stop 07/17/16 at 11:26 ; Status DC Iohexol (Omnipaque 300 Mg/ml) 40 ml 1X ONCE IART Last administered on 11:26; Start 07/17/16 at 11:15; Stop 07/17/16 at 11:26; Status DC Info (Do NOT chart on this entry -- for MONITORING) 1 each PRN DAILY PRN MC SEE COMMENTS; Start 07/17/16 at 11:30; Stop 07/19/16 at 11:29; Status DC Calcium Chloride 2,000 mg STK-MED ONCE IV ; Start 07/16/16 at 13:02; Stop at 13:03; Status DC Epinephrine HCl 4 mg STK-MED ONCE .ROUTE ; Start 07/16/16 at 13:02; Stop at 13:03; Status DC Furosemide 40 mg 40 mg 1X ONCE IVP Last administered on 07/17/16 16:45; Start 07/17/16 at 16:45; Stop 07/17/16 at 16:47; Status DC Propofol (Diprivan) 100 ml @ As Directed STK-MED ONCE IV ; Start 07/17/16 at 16 :36; Stop 07/17/16 at 16:37; Status DC Insulin Detemir (Levemir) 35 units BID SQ Last administered on 07/18/16 10:00 ; Start 07/18/16 at 09:00; Stop 07/18/16 at 11:55; Status DC Insulin Aspart (Novolog) 10 units Q6HRS SQ ; Start 07/18/16 at 12:00; Stop 07/18 at 12:00; Status DC Insulin Aspart 20 units 20 units 1X ONCE SQ Last administered on 07/18/16 10: 02; Start 07/18/16 at 08:15; Stop 07/18/16 at 11:56; Status DC Sodium Acetate/ Potassium Acetate/ Magnesium Sulfate/ Calcium Gluconate/ Multivitamins/ Chromium/Copper/ Manganese/Seleni/ Zn/Insulin Human Regular/ Total Parenteral Nutrition/Amino Acids/Dextrose/ Fat Emulsion Intravenous ( Calcium Gluconate/ Infuvite Adult/ Multitrace-5 Conc/ Novolin R Vi... 1,512 ml @ 63 mls/hr TPN CONT IV Last administered on 07/18/16 22:03; Start 07/18/16 at 22:00; Stop 07/19/16 at 21:59; Status DC Atropine Sulfate 0.5 mg 0.5 mg STK-MED ONCE .ROUTE ; Start 07/18/16 at 09:43; Stop 07/18/16 at 09:44; Status DC Insulin Human Regular/Sodium Chloride (Novolin R Vial/ Iv Normal Saline 150ml) 151.5 ml @ 0 mls/hr CONT PRN IV SEE I/O RECORD Last administered on 07/18/16 13:54; Start 07/18/16 at 11:45; Stop 07/19/16 at 10:27; Status DC Dextrose 12.5 gm 12.5 gm PRN Q15MIN PRN IV LOW BLOOD SUGAR; Start 07/18/16 at 11:45; Stop 07/19/16 at 10:53; Status DC Potassium Chloride (KCl Premix 20meq) 50 ml @ 25 mls/hr Q2H IV Last administered on 07/19/16 11:09; Start 07/19/16 at 09:30; Stop 07/19/16 at 13:29 ; Status DC Propofol (Diprivan) 1,000 mg STK-MED ONCE IV ; Start 07/17/16 at 16:36; Stop at 08:22; Status DC Atropine Sulfate 1 mg STK-MED ONCE .ROUTE ; Start 07/18/16 at 09:43; Stop at 08:53; Status DC Hydrocortisone Sodium Succinate (Solu-Cortef) 50 mg Q8HRS IV Last administered on 07/24/16 05:27; Start 07/19/16 at 14:00; Stop 07/24/16 at 14:38; Status DC Heparin Sodium (Porcine) 7400 unit 7,400 unit 1X ONCE IV Last administered on 07/19/16 10:03; Start 07/19/16 at 09:45; Stop 07/19/16 at 09:53; Status DC Heparin Sodium/ Dextrose 500 ml @ 0 mls/hr CONT PRN IV SEE I/O RECORD Last administered on 07/25/16 01:58; Start 07/19/16 at 09:45; Stop 07/25/16 at 13:12; Status DC Heparin Sodium (Porcine) 2,800 unit PRN Q6HRS PRN IV FOR UFH LEVEL LESS THAN 0.2; Start 07/19/16 at 09:45; Stop 07/23/16 at 08:12; Status DC Heparin Sodium (Porcine) 1,400 unit PRN Q6HRS PRN IV FOR UFH LEVEL 0.2 - 0.29 Last administered on 07/20/16 12:06; Start 07/19/16 at 09:45; Stop 07/23/16 at 08:12; Status DC Warfarin Sodium (Coumadin Per Pharmacy) 1 each PRN DAILY PRN MC PER PROTOCOL Last administered on 07/26/16 14:48; Start 07/19/16 at 09:45; Stop 07/26/16 at 15 :34; Status DC Insulin Aspart (Novolog) 0-5 UNITS TIDWMEALS SQ Last administered on 07/19/16 12:02; Start 07/19/16 at 12:00; Stop 07/19/16 at 16:45; Status DC Dextrose 12.5 gm 12.5 gm PRN Q15MIN PRN IV SEE COMMENTS; Start 07/19/16 at 10: 30; Stop 07/24/16 at 13:40; Status DC Potassium Acetate/ Magnesium Sulfate/ Calcium Gluconate/ Multivitamins/ Chromium /Copper/ Manganese/Seleni/ Zn/Insulin Human Regular/Total Parenteral Nutrition/ Amino Acids/Dextrose/ Fat Emulsion Intravenous (Calcium Gluconate/ Infuvite Adult/ Multitrace-5 Conc/ Novolin R Vial/ Tpn - Tpn Flu... 1,200 ml @ 50 mls/ hr TPN CONT IV ; Start 07/19/16 at 22:00; Stop 07/19/16 at 22:00; Status DC Insulin Aspart (Novolog) 0-5 UNITS Q6HRS SQ Last administered on 07/21/16 12: 04; Start 07/19/16 at 18:00; Stop 07/21/16 at 12:34; Status DC Warfarin Sodium (Coumadin) 4 mg 1X WARF ONCE PO Last administered on 17:26; Start 07/19/16 at 17:02; Stop 07/19/16 at 17:03; Status DC Fentanyl Citrate (Fentanyl 2ml Vial) 50 mcg PRN Q2HR PRN IV PAIN Last administered on 07/22/16 03:15; Start 07/20/16 at 02:45; Stop 07/22/16 at 04:45 ; Status DC Warfarin Sodium (Coumadin) 5 mg 1X WARF ONCE PO Last administered on 17:09; Start 07/20/16 at 16:00; Stop 07/20/16 at 16:01; Status DC Midazolam HCl 1 mg 1 mg PRN Q1HR PRN IV sedation on vent; Start 07/20/16 at 11: 15; Stop 07/22/16 at 04:46; Status DC Sodium Chloride (Iv Sodium Chloride 0.9% 1000ml Bag) 1,000 ml @ 75 mls/hr [id number] IV Last administered on 07/23/16 05:31; Start 07/20/16 at 11:15; Stop 07/23/16 at 11:50; Status DC Midazolam HCl (Versed) 2 mg PRN Q1HR PRN IV sedation on vent; Start 07/20/16 at 11:15; Stop 07/22/16 at 04:47; Status DC Midazolam HCl (Versed) 3 mg PRN Q1HR PRN IV sedation on vent; Start 07/20/16 at 11:15; Stop 07/22/16 at 04:47; Status DC Midazolam HCl (Versed) 4 mg PRN Q1HR PRN IV sedation on vent Last administered on 07/22/16 04:32; Start 07/20/16 at 11:15; Stop 07/22/16 at 04:47; Status DC Insulin Detemir (Levemir) 15 units QHS SQ Last administered on 07/20/16 20:47 ; Start 07/20/16 at 21:00; Stop 07/21/16 at 12:34; Status DC Warfarin Sodium (Coumadin) 5 mg 1X WARF ONCE PO Last administered on 15:37; Start 07/21/16 at 16:00; Stop 07/21/16 at 16:01; Status DC Pantoprazole Sodium (Protonix Vial) 40 mg DAILYAC IVP Last administered on 07/22 07:41; Start 07/22/16 at 07:30; Stop 07/23/16 at 04:47; Status DC Insulin Detemir (Levemir) 25 units QHS SQ Last administered on 07/25/16 21:16; Start 07/21/16 at 21:00; Stop 07/26/16 at 08:09; Status DC Docusate Sodium (Colace) 100 mg BID PO Last administered on 07/25/16 21:11; Start 07/21/16 at 21:00 Insulin Aspart (Novolog) 0-9 UNITS Q6HRS SQ Last administered on 07/29/16 08:34 ; Start 07/21/16 at 13:00 Fentanyl Citrate (Fentanyl 2ml Vial) 100 mcg STK-MED ONCE .ROUTE ; Start at 22:18; Stop 07/21/16 at 22:19; Status DC Midazolam HCl (Versed) 2 mg STK-MED ONCE .ROUTE ; Start 07/21/16 at 23:45; Stop 07/21/16 at 23:46; Status DC Fentanyl Citrate (Fentanyl 2ml Vial) 100 mcg STK-MED ONCE .ROUTE ; Start at 00:36; Stop 07/22/16 at 00:37; Status DC Midazolam HCl (Versed) 2 mg STK-MED ONCE .ROUTE ; Start 07/22/16 at 00:57; Stop 07/22/16 at 00:58; Status DC Midazolam HCl (Versed) 2 mg STK-MED ONCE .ROUTE ; Start 07/22/16 at 02:06; Stop 07/22/16 at 02:07; Status DC Midazolam HCl (Versed) 2 mg STK-MED ONCE .ROUTE ; Start 07/22/16 at 03:13; Stop 07/22/16 at 03:14; Status DC Fentanyl Citrate (Fentanyl 2ml Vial) 100 mcg STK-MED ONCE .ROUTE ; Start at 03:14; Stop 07/22/16 at 03:15; Status DC Midazolam HCl (Versed) 2 mg STK-MED ONCE .ROUTE ; Start 07/22/16 at 04:29; Stop 07/22/16 at 04:30; Status DC Fentanyl Citrate (Fentanyl 2ml Vial) 50 mcg PRN Q2HR PRN IV SEVERE PAIN Last administered on 07/29/16 10:36; Start 07/22/16 at 04:45 Midazolam HCl (Versed) 1 mg PRN Q1HR PRN IV sedation on vent; Start 07/22/16 at 04:46 Midazolam HCl (Versed) 2 mg PRN Q1HR PRN IV sedation on vent Last administered on 07/22/16 07:42; Start 07/22/16 at 04:47 Midazolam HCl (Versed) 3 mg PRN Q1HR PRN IV sedation on vent; Start 07/22/16 at 04:47 Midazolam HCl (Versed) 4 mg PRN Q1HR PRN IV sedation on vent Last administered on 07/22/16 05:33; Start 07/22/16 at 04:47 Warfarin Sodium (Coumadin) 7.5 mg 1X WARF ONCE PO Last administered on 17:38; Start 07/22/16 at 16:00; Stop 07/22/16 at 16:01; Status DC Metoprolol Tartrate (Lopressor) 5 mg Q6HRS IVP Last administered on 07/26/16 06 :09; Start 07/22/16 at 12:30; Stop 07/26/16 at 09:08; Status DC Atorvastatin Calcium (Lipitor) 40 mg STK-MED ONCE .ROUTE ; Start 07/22/16 at 20: 37; Stop 07/22/16 at 20:38; Status DC Diphenhydramine HCl (Benadryl) 25 mg PRN Q6HRS PRN IVP ANAPHYLAXIS; Start 07/23 at 04:47 Pantoprazole Sodium (Protonix Vial) 40 mg DAILYAC IVP Last administered on 08:27; Start 07/23/16 at 04:47 Heparin Sodium (Porcine) 3,100 unit PRN Q6HRS PRN IV FOR UFH LEVEL LESS THAN 0.2; Start 07/23/16 at 08:15; Stop 07/24/16 at 13:37; Status DC Heparin Sodium (Porcine) 1,600 unit PRN Q6HRS PRN IV FOR UFH LEVEL 0.2 - 0.29 Last administered on 07/23/16 08:26; Start 07/23/16 at 08:15; Stop 07/24/16 at 13:39; Status DC Warfarin Sodium 7.5 mg 7.5 mg 1X WARF ONCE PO Last administered on 07/23/16 16:53; Start 07/23/16 at 16:00; Stop 07/23/16 at 16:01; Status DC Potassium Chloride 50 ml @ 50 mls/hr Q1H IV Last administered on 07/23/16 13: 39; Start 07/23/16 at 11:00; Stop 07/23/16 at 12:59; Status DC Amino Acids/ Electrolytes/ Dextrose (Clinimix E 4.25%-5% Solution) 1,000 ml @ 80 mls/hr [id number] IV Last administered on 07/27/16 04:34; Start 07/23/16 at 12: 00; Stop 07/27/16 at 14:18; Status DC Atorvastatin Calcium (Lipitor) 40 mg STK-MED ONCE .ROUTE ; Start 07/23/16 at 20: 33; Stop 07/23/16 at 20:34; Status DC Warfarin Sodium (Coumadin) 5 mg 1X WARF ONCE PO ; Start 07/24/16 at 16:00; Stop 07/24/16 at 16:01; Status DC Heparin Sodium (Porcine) (Heparin Sodium) 3,100 unit PRN Q6HRS PRN IV FOR UFH LEVEL LESS THAN 0.2; Start 07/24/16 at 13:37; Stop 07/25/16 at 13:12; Status DC Heparin Sodium (Porcine) (Heparin Sodium) 1,600 unit PRN Q6HRS PRN IV FOR UFH LEVEL 0.2 - 0.29; Start 07/24/16 at 13:39; Status Cancel Atorvastatin Calcium (Lipitor) 40 mg HS PO Last administered on 07/25/16 21:11 ; Start 07/24/16 at 21:00 Dextrose (Dextrose 50%-Water Syringe) 12.5 gm PRN Q15MIN PRN IV SEE COMMENTS Last administered on 07/26/16 07:42; Start 07/24/16 at 13:40; Stop 07/26/16 at 09: 07; Status DC Hydralazine HCl (Apresoline) 20 mg PRN Q4HRS PRN IVP ELEVATED BP, SEE COMMENTS Last administered on 07/29/16 10:13; Start 07/24/16 at 14:45 Hydrocortisone Sodium Succinate (Solu-Cortef) 50 mg BID IV Last administered on 07/25/16 21:15; Start 07/24/16 at 21:00; Stop 07/26/16 at 09:07; Status DC Clonidine HCl 1 patch 1 patch WEEKLY TD Last administered on 07/24/16 19:05; Start 07/24/16 at 15:00; Stop 07/26/16 at 09:07; Status DC Nicardipine HCl/ Sodium Chloride (Cardene/Iv Sodium Chloride 0.9% 250ml) 270 ml @ 0 mls/hr CONT PRN IV SEE I/O RECORD Last administered on 07/25/16 22:46; Start 07/25/16 at 08:45; Stop 07/26/16 at 09:04; Status DC Warfarin Sodium (Coumadin) 5 mg 1X WARF ONCE PO Last administered on 07/25/16 15:09; Start 07/25/16 at 16:00; Stop 07/25/16 at 16:01; Status DC Lorazepam (Ativan) 1 mg PRN Q4HRS PRN IV ANXIETY / AGITATION Last administered on 07/26/16 11:55; Start 07/26/16 at 01:30 Clonidine HCl (Catapres Tts-2) 2 patch WEEKLY TD Last administered on 07/26/16 10:34; Start 07/26/16 at 10:00 Hydrocortisone Sodium Succinate 25 mg 25 mg BID IV Last administered on 09:48; Start 07/26/16 at 09:00; Stop 07/27/16 at 10:07; Status DC Potassium Chloride (KCl Premix 20meq) 50 ml @ 50 mls/hr Q1H IV Last administered on 07/26/16 11:55; Start 07/26/16 at 10:00; Stop 07/26/16 at 11:59; Status DC Dextrose (Dextrose 50%-Water Syringe) 25 gm STK-MED ONCE IV ; Start 07/26/16 at 13:21; Stop 07/26/16 at 13:22; Status DC Dextrose (Dextrose 50%-Water Syringe) 12.5 gm PRN Q15MIN PRN IV SEE COMMENTS Last administered on 07/26/16 13:27; Start 07/26/16 at 13:30 Warfarin Sodium (Coumadin) 5 mg 1X WARF ONCE PO ; Start 07/26/16 at 16:00; Stop 07/26/16 at 16:01; Status Cancel Methylprednisolone Sodium Succinate (Solu-Medrol 125mg Vial) 125 mg 1X ONCE IV Last administered on 07/26/16 15:11; Start 07/26/16 at 15:30; Stop 07/26/16 at 15:31; Status DC Diphenhydramine HCl (Benadryl) 50 mg 1X ONCE IVP ; Start 07/26/16 at 15:30; Stop 07/26/16 at 15:30; Status DC Diphenhydramine HCl (Benadryl) 25 mg PRN Q6HRS PRN IVP ITCHING Last administered on 07/26/16 15:13; Start 07/26/16 at 15:00 Alteplase, Recombinant (Cathflo) 2 mg 1X ONCE INT CAT Last administered on 07/26 16:15; Start 07/26/16 at 15:45; Stop 07/26/16 at 15:46; Status DC Enoxaparin Sodium (Lovenox 100mg Syringe) 100 mg Q12HR SQ Last administered on 07/27/16 21:34; Start 07/26/16 at 21:00; Stop 07/28/16 at 07:50; Status DC Hydrocortisone Sodium Succinate 25 mg 25 mg DAILY IV Last administered on 08:27; Start 07/28/16 at 09:00; Stop 07/29/16 at 09:01; Status DC Magnesium Sulfate/ Dextrose 50 ml @ 25 mls/hr PRN DAILY PRN IV for Mag < 1.7 on am labs; Start 07/27/16 at 10:15; Stop 07/27/16 at 14:19; Status DC Potassium Chloride 50 ml @ 50 mls/hr PRN Q6HRS PRN IV For K < 3.7; Start at 10:15; Stop 07/27/16 at 14:19; Status DC Potassium Chloride (KCl Premix 20meq) 50 ml @ 50 mls/hr PRN Q2HR PRN IV total of 40mEq for K < 3.5; Start 07/27/16 at 10:15; Stop 07/27/16 at 14:19; Status DC Furosemide (Lasix) 40 mg [id number] IVP Last administered on 07/28/16 08:31; Start 07/27/16 at 10:30; Stop 07/28/16 at 11:01; Status DC Info 1 each 1 each PRN DAILY PRN MC SEE COMMENTS Last administered on 07/28/16 15:09; Start 07/27/16 at 14:15 Potassium Acetate/ Magnesium Sulfate/ Calcium Gluconate/ Multivitamins/ Chromium /Copper/ Manganese/Seleni/ Zn/Insulin Human Regular/Total Parenteral Nutrition/ Amino Acids/Dextrose/ Fat Emulsion Intravenous (Calcium Gluconate/ Infuvite Adult/ Multitrace-5 Conc/ Novolin R Vial/ Tpn - Tpn Flu... 1,512 ml @ 63 mls/ hr TPN CONT IV Last administered on 07/27/16 21:42; Start 07/27/16 at 22:00; Stop 07/28/16 at 21:59; Status DC Rivaroxaban (Xarelto) 15 mg BIDWMEALS PO ; Start 07/28/16 at 08:00; Stop 07/28/16 at 10:33; Status DC Enoxaparin Sodium (Lovenox 100mg Syringe) 100 mg Q12HR SQ Last administered on 07/29/16 08:26; Start 07/28/16 at 11:00 Iohexol (Omnipaque 350 Mg/ml) 100 ml 1X ONCE IV Last administered on 07/28/16 12:01; Start 07/28/16 at 12:00; Stop 07/28/16 at 12:01; Status DC Info 1 each 1 each PRN DAILY PRN MC SEE COMMENTS; Start 07/28/16 at 11:45; Stop 07/30/16 at 11:44 Potassium Acetate/ Magnesium Sulfate/ Calcium Gluconate/ Multivitamins/ Chromium /Copper/ Manganese/Seleni/ Zn/Insulin Human Regular/Total Parenteral Nutrition/ Amino Acids/Dextrose/ Fat Emulsion Intravenous (Calcium Gluconate/ Infuvite Adult/ Multitrace-5 Conc/ Novolin R Vial/ Tpn - Tpn Flu... 1,920 ml @ 80 mls/ hr TPN CONT IV Last administered on 07/28/16 21:06; Start 07/28/16 at 22:00; Stop 07/29/16 at 21:59 Active Scripts Active Levemir Flextouch (Insulin Detemir) 100 Unit/1 Ml Insuln.pen 20 Units SQ QHS 30 Days Novolog Flexpen (Insulin Aspart) 100 Unit/1 Ml Insuln.pen 10 Units SQ TIDAC 30 Days Reported Advair 100-50 Diskus (Fluticasone/Salmeterol) 1 Each Disk.w.dev 1 Puff IH BID Spiriva Respimat (Tiotropium [place]) 4 Gm Mist.inhal 2.5 Gm IH DAILY Symbicort 160-4.5 Mcg Inhaler (Budesonide/Formoterol Fumarate) 10.2 Gm Hfa.aer.ad 2 Puff IH BID Atorvastatin Calcium 20 Mg Tablet 20 Mg PO HS Lisinopril-Hctz 10-12.5 Mg Tab (Lisinopril/Hydrochlorothiazide) 1 Each Tablet 1 Tab PO DAILY Isosorbide Mononitrate Er (Isosorbide Mononitrate) 120 Mg Tab.er.24h 120 Mg PO DAILY Novolin N (Nph, Human Insulin Isophane) 100 Unit/1 Ml Vial 0 SQ Promethazine-Codeine Syrup (Promethazine Hcl/Codeine) 118 Ml Syrup 5 Ml PO Q4- 6HRS Diltiazem 24HR Cd (Diltiazem Hcl) 240 Mg Cap.er.24h 240 Mg PO DAILY NITROGLYCERIN SubLingual (Nitroglycerin) 0.4 Mg Tab.subl 0.4 Mg SL PRN Q5MIN PRN Atorvastatin Calcium 40 Mg Tablet 40 Mg PO HS Vitals/I & O Vital Sign - Last 24 Hours 07/28/16 07/28/16 07/28/16 07/28/16 13:02 15:30 15:37 19:00 Temp 98.1 97.5 98.1 97.5 Pulse 62 65 Resp 18 18 20 B/P 156/81 166/89 Pulse Ox 95 95 100 O2 Delivery Room Air Room Air Room Air Room Air 07/28/16 07/28/16 07/28/16 07/28/16 19:45 20:38 23:00 23:14 Temp 97.7 97.7 Pulse 64 Resp 20 22 B/P 175/84 Pulse Ox 96 97 96 O2 Delivery Room Air Room Air Room Air Room Air 07/29/16 07/29/16 07/29/16 07/29/16 02:19 03:00 04:40 06:32 Temp 98.0 98.0 Pulse 77 60 Resp 18 22 B/P 184/81 161/74 Pulse Ox 97 97 O2 Delivery Room Air Room Air Room Air 07/29/16 07/29/16 07/29/16 07/29/16 07:00 07:10 10:13 10:36 Temp 98.4 98.4 Pulse 57 70 Resp 20 18 B/P 160/74 190/84 Pulse Ox 95 95 95 O2 Delivery Room Air Room Air Room Air 07/29/16 07/29/16 07/29/16 07/29/16 10:50 10:57 11:10 11:17 Temp 98.2 97.6 98.2 97.6 Pulse 84 78 Resp 18 18 20 B/P 155/89 168/72 Pulse Ox 94 95 95 O2 Delivery Room Air Room Air Room Air Room Air Intake and Output 07/28/16 07/28/16 07/29/16 15:00 23:00 07:00 Intake Total 756 ml 810 ml Output Total 1800 ml 1550 ml 825 ml Balance -1800 ml -794 ml -15 ml BALA BRYANT MD Jul 29, 2016 12:01
--- NOTE | 2016-07-29 12:38 | PDOC ---
PULMONARY PROGRESS NOTES Subjective EXTUBATEd 07/22 NO INCREASE SOA Vitals Vital Signs Date Time Temp Pulse Resp B/P Pulse Ox O2 Delivery O2 Flow Rate FiO2 07/29/16 11:17 97.6 78 20 168/72 95 Room Air 97.6 General: Alert, No acute distress HEENT: Other (nc at orally intubated, nose clear, ) Lungs: Other (decreased breath sounds bilaterally. ) Cardiovascular: S1, S2 Abdomen: Soft, Non-tender, Other (no groin tenderness) Neuro Exam: Alert Extremities: Other (2+EDEMA) Skin: Warm Labs Laboratory Tests Test 07/27/16 13:40 07/27/16 17:50 07/27/16 17:56 07/28/16 00:01 Potassium Level 4.7mmol/L (3.5-5.1) 4.4mmol/L (3.5-5.1) Phosphorus Level 4.9mg/dL (2.6-4.7) Magnesium Level 2.1mg/dL (1.8-2.4) Glucose (Fingerstick) 379mg/dL (70-99) 242mg/dL (70-99) Test 07/28/16 00:30 07/28/16 06:02 07/28/16 06:40 07/28/16 12:42 Potassium Level 4.0mmol/L (3.5-5.1) 3.7mmol/L (3.5-5.1) Magnesium Level 1.8mg/dL (1.8-2.4) Glucose (Fingerstick) 167mg/dL (70-99) 221mg/dL (70-99) White Blood Count 17.7x10^3/uL (4.0-11.0) Red Blood Count 3.54x10^6/uL (4.30-5.70) Hemoglobin 10.0g/dL (13.0-17.5) Hematocrit 31.3% (39.0-53.0) Mean Corpuscular Volume 89fL (79-100) Mean Corpuscular Hemoglobin 28pg (25-35) Mean Corpuscular Hemoglobin Concent 32g/dL (31-37) Red Cell Distribution Width 15.1% (11.5-14.5) Platelet Count 221x10^3/uL (140-400) Neutrophils (%) (Auto) 82% (31-73) Lymphocytes (%) (Auto) 10% (24-48) Monocytes (%) (Auto) 7% (0-9) Eosinophils (%) (Auto) 1% (0-3) Basophils (%) (Auto) 1% (0-3) Neutrophils # (Auto) 14.4x10^3uL (1.8-7.7) Lymphocytes # (Auto) 1.8x10^3/uL (1.0-4.8) Monocytes # (Auto) 1.3x10^3/uL (0.0-1.1) Eosinophils # (Auto) 0.1x10^3/uL (0.0-0.7) Basophils # (Auto) 0.1x10^3/uL (0.0-0.2) Sodium Level 146mmol/L (136-145) Chloride Level 110mmol/L (98-107) Carbon Dioxide Level 29mmol/L (21-32) Anion Gap 7 (6-14) Blood Urea Nitrogen 37mg/dL (8-26) Creatinine 1.1mg/dL (0.7-1.3) Estimated GFR (Cockcroft-Gault) 79.4 Glucose Level 201mg/dL (70-99) Calcium Level 8.3mg/dL (8.5-10.1) Phosphorus Level 3.5mg/dL (2.6-4.7) Test 07/28/16 13:45 07/28/16 19:26 07/28/16 21:00 07/28/16 23:13 Potassium Level 3.9mmol/L (3.5-5.1) 3.8mmol/L (3.5-5.1) Glucose (Fingerstick) 207mg/dL (70-99) 163mg/dL (70-99) Test 07/29/16 02:30 07/29/16 05:33 07/29/16 08:02 07/29/16 10:40 White Blood Count 13.9x10^3/uL (4.0-11.0) Red Blood Count 3.38x10^6/uL (4.30-5.70) Hemoglobin 9.5g/dL (13.0-17.5) Hematocrit 29.6% (39.0-53.0) Mean Corpuscular Volume 88fL (79-100) Mean Corpuscular Hemoglobin 28pg (25-35) Mean Corpuscular Hemoglobin Concent 32g/dL (31-37) Red Cell Distribution Width 15.1% (11.5-14.5) Platelet Count 214x10^3/uL (140-400) Neutrophils (%) (Auto) 78% (31-73) Lymphocytes (%) (Auto) 12% (24-48) Monocytes (%) (Auto) 9% (0-9) Eosinophils (%) (Auto) 1% (0-3) Basophils (%) (Auto) 1% (0-3) Neutrophils # (Auto) 10.8x10^3uL (1.8-7.7) Lymphocytes # (Auto) 1.6x10^3/uL (1.0-4.8) Monocytes # (Auto) 1.3x10^3/uL (0.0-1.1) Eosinophils # (Auto) 0.1x10^3/uL (0.0-0.7) Basophils # (Auto) 0.1x10^3/uL (0.0-0.2) Sodium Level 146mmol/L (136-145) Potassium Level 3.6mmol/L (3.5-5.1) Chloride Level 109mmol/L (98-107) Carbon Dioxide Level 31mmol/L (21-32) Anion Gap 6 (6-14) Blood Urea Nitrogen 27mg/dL (8-26) Creatinine 1.0mg/dL (0.7-1.3) Estimated GFR (Cockcroft-Gault) 88.6 Glucose Level 165mg/dL (70-99) Calcium Level 8.4mg/dL (8.5-10.1) Phosphorus Level 3.9mg/dL (2.6-4.7) Magnesium Level 1.6mg/dL (1.8-2.4) Glucose (Fingerstick) 189mg/dL (70-99) 204mg/dL (70-99) 126mg/dL (70-99) Laboratory Tests Test 07/28/16 12:42 07/28/16 13:45 07/28/16 19:26 07/28/16 21:00 Glucose (Fingerstick) 221mg/dL (70-99) 207mg/dL (70-99) Potassium Level 3.9mmol/L (3.5-5.1) 3.8mmol/L (3.5-5.1) Test 07/28/16 23:13 07/29/16 02:30 07/29/16 05:33 07/29/16 08:02 Glucose (Fingerstick) 163mg/dL (70-99) 189mg/dL (70-99) 204mg/dL (70-99) White Blood Count 13.9x10^3/uL (4.0-11.0) Red Blood Count 3.38x10^6/uL (4.30-5.70) Hemoglobin 9.5g/dL (13.0-17.5) Hematocrit 29.6% (39.0-53.0) Mean Corpuscular Volume 88fL (79-100) Mean Corpuscular Hemoglobin 28pg (25-35) Mean Corpuscular Hemoglobin Concent 32g/dL (31-37) Red Cell Distribution Width 15.1% (11.5-14.5) Platelet Count 214x10^3/uL (140-400) Neutrophils (%) (Auto) 78% (31-73) Lymphocytes (%) (Auto) 12% (24-48) Monocytes (%) (Auto) 9% (0-9) Eosinophils (%) (Auto) 1% (0-3) Basophils (%) (Auto) 1% (0-3) Neutrophils # (Auto) 10.8x10^3uL (1.8-7.7) Lymphocytes # (Auto) 1.6x10^3/uL (1.0-4.8) Monocytes # (Auto) 1.3x10^3/uL (0.0-1.1) Eosinophils # (Auto) 0.1x10^3/uL (0.0-0.7) Basophils # (Auto) 0.1x10^3/uL (0.0-0.2) Sodium Level 146mmol/L (136-145) Potassium Level 3.6mmol/L (3.5-5.1) Chloride Level 109mmol/L (98-107) Carbon Dioxide Level 31mmol/L (21-32) Anion Gap 6 (6-14) Blood Urea Nitrogen 27mg/dL (8-26) Creatinine 1.0mg/dL (0.7-1.3) Estimated GFR (Cockcroft-Gault) 88.6 Glucose Level 165mg/dL (70-99) Calcium Level 8.4mg/dL (8.5-10.1) Phosphorus Level 3.9mg/dL (2.6-4.7) Magnesium Level 1.6mg/dL (1.8-2.4) Test 07/29/16 10:40 Glucose (Fingerstick) 126mg/dL (70-99) Medications Active Scripts Medications Dose Route/Sig Days Date Category Advair 100-50 Diskus (Fluticasone/Salmeterol) 1 Each Disk.w.dev 1 Puff IH BID 06/21/16 Reported Spiriva Respimat (Tiotropium [place]) 4 Gm Mist.inhal 2.5 Gm IH DAILY 06/21/16 Reported Symbicort 160-4.5 Mcg Inhaler (Budesonide/Formoterol Fumarate) 10.2 Gm Hfa.aer.ad 2 Puff IH BID 06/21/16 Reported Atorvastatin Calcium 20 Mg Tablet 20 Mg PO HS 06/21/16 Reported Lisinopril-Hctz 10-12.5 Mg Tab (Lisinopril/Hydrochlorothiazide) 1 Each Tablet 1 Tab PO DAILY 06/21/16 Reported Isosorbide Mononitrate Er (Isosorbide Mononitrate) 120 Mg Tab.er.24h 120 Mg PO DAILY 06/21/16 Reported Levemir Flextouch (Insulin Detemir) 100 Unit/1 Ml Insuln.pen 20 Units SQ QHS 30 11/24/15 Rx Novolog Flexpen (Insulin Aspart) 100 Unit/1 Ml Insuln.pen 10 Units SQ TIDAC 30 11/24/15 Rx Novolin N (Nph, Human Insulin Isophane) 100 Unit/1 Ml Vial 0 SQ 11/18/15 Reported Promethazine-Codeine Syrup (Promethazine Hcl/Codeine) 118 Ml Syrup 5 Ml PO Q4-6HRS 11/18/15 Reported Diltiazem 24HR Cd (Diltiazem Hcl) 240 Mg Cap.er.24h 240 Mg PO DAILY 11/18/15 Reported NITROGLYCERIN SubLingual (Nitroglycerin) 0.4 Mg Tab.subl 0.4 Mg SL PRN Q5MIN PRN 11/18/15 Reported Atorvastatin Calcium 40 Mg Tablet 40 Mg PO HS 11/18/[address] reviewed, 1. Widespread multifocal bilateral segmental pulmonary embolism, with nonocclusive lobar embolism involving the right lower and middle lobes. 2. Diffuse tree-in-bud opacification suggestive of acute bronchiolitis. Findings are less confluence than on the prior examination, but now involve the lower lobes. 3. Right heart enlargement with straightening of the interventricular septum possibly due to pulmonary hypertension. Correlate clinically and consider echocardiography if warranted. 4. Short segment high-grade stricture and/or focal obliteration of the right upper lobe bronchus. No adjacent mass or evidence of extrinsic compression. This is stable. CXR REVIEWED Impression . 1. Acute respiratory failure secondary to angioedema, self extubated 07/14, reintubated 07/15, s/p cardiopulmonary arrest, Acute extensive PE, DVT, s/p TPA 2. Acute extensive PE with shock, DVT, s/p TPA, 2. Lisinopril induced angioedema. resolved 3. Chronic obstructive pulmonary disease. 4. Hypertension. 5. Coronary artery disease. s/p emergent cath.no sig disease 6. BASIM, improving 7. anemia, Plan . NEEDS REHAB SPEECH EVALUATION / NPO FOR NOW D/W RN RESUME XARELTO ONCE CLEARED TO TAKE PO/ LOVENOX FOR NOW DYSPHAGIA IMPROVING REPEAT CXR STABLE OFF STEROIDS ANTICOAGULATION FOR AT LEAST [address] CHEST IN AM (DOUBT HE CAN DO OP) IVANA MCCONNELL MD Jul 29, 2016 12:38
[2016-07-29] MEDS: TPN PER PHARMACY MC PRN (13:39)
--- NOTE | 2016-07-29 13:41 | PDOC ---
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 DAJA AGUILAR MD Jul 29, 2016 13:41
[2016-07-29] MEDS ORDERED: BARIUM SULFATE 40% (APPLE) 148 GM PWD. PO ONE (14:00)
[2016-07-29] MEDS: ASPIRIN ENTERIC COATED 81 MG TABLET.DR. PO SCH (14:30)
--- NOTE | 2016-07-29 16:09 | RAD ---
Videofluoroscopic swallowing examination History: 10 days intubation with 2 episodes of self extubation. Dysphagia. Technique: Examination performed in conjunction with speech service. Solid and semisolid food substances were administered to the patient as well as liquids of various consistencies. Findings: With honey consistency, the patient demonstrated single episode of slight aspiration secondary to coating of the undersurface of the epiglottis. The aspirated material was spontaneously and quickly cleared. Other trials with honey consistency were without laryngeal penetration or tracheal aspiration. With thin consistency, the patient demonstrated premature spillage to the piriform sinuses prior to swallow. No laryngeal penetration or tracheal aspiration was visualized under fluoroscopy, however. With pudding consistency, neither laryngeal penetration nor tracheal aspiration was identified. With soft solid food, there may have been a single episode of shallow laryngeal penetration. No aspiration was identified. Fluoroscopic time was 4.3 minutes. 9 fluoroscopic series were sent to the PACS system Impression: 1. Patient demonstrated a single episode of mild aspiration with honey consistency, although aspirated material was quickly spontaneously expelled. Other trials with honey consistency were tolerated well without laryngeal penetration or tracheal aspiration. 2. Premature spillage with thin consistency was seen, but no or penetration or aspiration was identified. 3. With solid foods, there may have been a single episode of shallow laryngeal penetration without aspiration. 4. Pudding consistency was tolerated well. Please see speech service report for more information.
[2016-07-29] MEDS ORDERED: DEXTROSE 70% IV SCH ×18 (22:00)
[2016-07-29] MEDS ORDERED: TOTAL PARENTERAL NUTRITION IV SCH ×18 (22:00)
[2016-07-29] MEDS ORDERED: [UNRECOGNIZED DRUG - OTHER] IV SCH ×18 (22:00)
[2016-07-29] MEDS ORDERED: AMINO ACIDS IV SCH ×18 (22:00)
[2016-07-29] MEDS: ATORVASTATIN CALCIUM 40 MG TABLET. PO SCH (22:08)
[2016-07-30] MEDS: ALBUTEROL SULFATE 2.5 MG/3 ML NEBU. NEB PRN (02:25)
[2016-07-30] MEDS: FENTANYL PF 100 MCG/2 ML VIAL. IV PRN ×2 (02:36→08:40)
[2016-07-30 03:05] VITALS: BP 166/80
--- NOTE | 2016-07-30 04:13 | CONS ---
DATE OF CONSULTATION: 07/29/2016 REASON FOR CONSULTATION: Aortoiliac disease. HISTORY OF PRESENT ILLNESS: A 75-year-old male who has been in the hospital almost 2 weeks with multiple medical issues. He had an IVC filter placed because of the DVT and pulmonary emboli and he has had chronic lung disease as well. He had a CT scan of his abdomen and pelvis with contrast because of history of some renal artery stenosis. 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 The patient gives no history of severe claudication and has had no problems with sores or gangrenous changes to his feet. PAST MEDICAL HISTORY: He does have chronic lung disease, coronary artery disease, hypertension, has had an ME in the past and he has got chronic diabetes. He is a smoker. ALLERGIES: LISINOPRIL. MEDICATIONS: His medications do not include aspirin, but he is on Lovenox. REVIEW OF SYSTEMS: Negative for stroke and he has had no prior lower extremity arterial interventions. PHYSICAL EXAMINATION: GENERAL: Pleasant male, alert, not on oxygen, sitting up in a chair. NECK: 2+ carotid pulses, 2+ brachial pulses. CARDIOVASCULAR: Heart rate is regular. LUNGS: Nonlabored respirations. ABDOMEN: Obese, could not palpate any masses. EXTREMITIES: He does have 2+ edema in both lower extremities. He had LAWRENCE hose on and I could not palpate popliteal pulses. 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 Right internal iliac occlusion. Mild to moderate stenosis of one of his right renal arteries. PLAN: I do not think anything needs to be done for the aneurysm of at this size. They are too small to justify an intervention. I recommend a followup ankle brachial index evaluation and aortoiliac and renal ultrasounds in our vascular lab in 6 months and we will make those arrangements. Also we will start aspirin 81 mg daily. Thanks for allowing us to see him. DAJA AGUILAR MD DR: JERICA/taylor JOB#: [id number] / [id number]
[2016-07-30] MEDS: INSULIN ASPART 300 UNITS/3 ML INSULN.PEN SQ SCH ×2 (06:00→13:14)
[2016-07-30 06:58] LABS: GFR 88.6; POTASSIUM 3.9 mmol/L (3.5-5.1)
[2016-07-30 07:00] VITALS: BP 131/61
[2016-07-30] MEDS: IPRATROPIUM BROMIDE 0.5 MG/2.5 ML NEBU. NEB SCH ×2 (07:53→13:10)
[2016-07-30] MEDS ORDERED: IOHEXOL 300 MG/ML 75 ML VIAL IV ONE (08:00)
[2016-07-30] MEDS ORDERED: CONTRAST GIVEN MC PRN (08:00)
[2016-07-30] MEDS: PANTOPRAZOLE IV PUSH 40 MG VIAL. IVP SCH (08:39)
[2016-07-30] MEDS: SCOPOLAMINE 1.5MG PATCH. TD SCH (08:41)
[2016-07-30] MEDS: MUPIROCIN 2 % NASAL OINTMENT 22GM TUBE. NS SCH (09:00)
--- NOTE | 2016-07-30 10:23 | PDOC ---
Subjective: Subjective: No GI complaints. Objective: Objective: Had videoswallow yesterday, started diet. Vital Signs: Vital Signs Date Time Temp Pulse Resp B/P Pulse Ox O2 Delivery O2 Flow Rate FiO2 07/30/16 08:40 Room Air 07/30/16 07:54 97 07/30/16 07:00 97.5 72 20 131/61 97.5 Labs: Laboratory Tests Test 07/29/16 10:40 07/29/16 16:30 07/29/16 20:28 07/29/16 23:33 Glucose (Fingerstick) 126mg/dL (70-99) 287mg/dL (70-99) 362mg/dL (70-99) 174mg/dL (70-99) Imaging: Videoswallow Impression: 1. Patient demonstrated a single episode of mild aspiration with honey consistency, although aspirated material was quickly spontaneously expelled. Other trials with honey consistency were tolerated well without laryngeal penetration or tracheal aspiration. 2. Premature spillage with thin consistency was seen, but no or penetration or aspiration was identified. 3. With solid foods, there may have been a single episode of shallow laryngeal penetration without aspiration. 4. Pudding consistency was tolerated well. CTA A/P IMPRESSION: 1. Moderate atherosclerotic plaquing of the abdominal aorta and its branches. 2. Moderate atherosclerotic plaquing in the larger of the two right renal arteries with moderate underlying stenosis estimated at approximately 60% of the luminal diameter. 3. 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 4. Miscellaneous findings as described above including bilateral pleural effusions, pulmonary infiltrates, ascites and anasarca. PE: GEN: NAD LUNGS: CTAB anteriorly HEART: S1S2 ABD: S/ND/NT NEURO/PSYCH: A & O 3 A/P: Dysphagia -following resp failure w/ intubation, cardiac arrest w/ cath, PE and DVT s/p TPA -now tolerating dysphagia II diet Anemia -- Stable GI-andres. Will change to PO PPI. SANDOR SARMIENTO Jul 30, 2016 10:23
[2016-07-30] MEDS ORDERED: OXYCODONE/APAP 5/325 TABLET. PO PRN (11:00)
[2016-07-30] MEDS: TPN PER PHARMACY MC PRN (11:02)
[2016-07-30] MEDS ORDERED: OXYC-323 PO (11:02)
--- NOTE | 2016-07-30 11:05 | PDOC3 ---
Discharge Summary Visit Information Date of Admission: Jul 12, 2016 Date of Discharge: Jul 30, 2016 Admitting Diagnosis Comment: - angioedema, likely 2/2 to ACEI; self extubated 07/14/16 - resolved - s/p CP arrest (PEA) sec to Multiple bilateral PE (07/15) - Non-occlusive thrombus, R leg (07/15) - COPD exacerbation - Low TSH levels in a critically ill patient - DM2; insulin requiring - Oliguric Hyperkalemic renal failure - Metabolic acidosis s/p arrest - Dyslipidemia on statin - Hypotensive shock, resolved and off pressors - Acute respiratory failure - intubated again (07/15) secondary to code blue ( PEA # 2) STRIDOR TONGUE SWELLING (07/26/16 HTN urgency Final Diagnosis Problems Medical Problems: (1) COPD exacerbation Status: Acute (2) Hyperglycemia Status: Acute (3) Pulmonary embolism Status: Acute Brief Hospital Course Allergies Allergies Coded Allergies Type Severity Reaction Last Updated Verified lisinopril Allergy Severe Anaphylaxis 07/13/16 Yes I S O L A T I O N *CONTACT* Allergy Unknown 07/14/16 Yes Vital Signs Vital Signs Date Time Temp Pulse Resp B/P Pulse Ox O2 Delivery O2 Flow Rate FiO2 07/30/16 08:40 Room Air 07/30/16 07:54 97 07/30/16 07:00 97.5 72 20 131/61 97.5 Lab Results Laboratory Tests Test 07/28/16 12:42 07/28/16 13:45 07/28/16 19:26 07/28/16 21:00 Glucose (Fingerstick) 221mg/dL (70-99) 207mg/dL (70-99) Potassium Level 3.9mmol/L (3.5-5.1) 3.8mmol/L (3.5-5.1) Test 07/28/16 23:13 07/29/16 02:30 07/29/16 05:33 07/29/16 08:02 Glucose (Fingerstick) 163mg/dL (70-99) 189mg/dL (70-99) 204mg/dL (70-99) White Blood Count 13.9x10^3/uL (4.0-11.0) Red Blood Count 3.38x10^6/uL (4.30-5.70) Hemoglobin 9.5g/dL (13.0-17.5) Hematocrit 29.6% (39.0-53.0) Mean Corpuscular Volume 88fL (79-100) Mean Corpuscular Hemoglobin 28pg (25-35) Mean Corpuscular Hemoglobin Concent 32g/dL (31-37) Red Cell Distribution Width 15.1% (11.5-14.5) Platelet Count 214x10^3/uL (140-400) Neutrophils (%) (Auto) 78% (31-73) Lymphocytes (%) (Auto) 12% (24-48) Monocytes (%) (Auto) 9% (0-9) Eosinophils (%) (Auto) 1% (0-3) Basophils (%) (Auto) 1% (0-3) Neutrophils # (Auto) 10.8x10^3uL (1.8-7.7) Lymphocytes # (Auto) 1.6x10^3/uL (1.0-4.8) Monocytes # (Auto) 1.3x10^3/uL (0.0-1.1) Eosinophils # (Auto) 0.1x10^3/uL (0.0-0.7) Basophils # (Auto) 0.1x10^3/uL (0.0-0.2) Sodium Level 146mmol/L (136-145) Potassium Level 3.6mmol/L (3.5-5.1) Chloride Level 109mmol/L (98-107) Carbon Dioxide Level 31mmol/L (21-32) Anion Gap 6 (6-14) Blood Urea Nitrogen 27mg/dL (8-26) Creatinine 1.0mg/dL (0.7-1.3) Estimated GFR (Cockcroft-Gault) 88.6 Glucose Level 165mg/dL (70-99) Calcium Level 8.4mg/dL (8.5-10.1) Phosphorus Level 3.9mg/dL (2.6-4.7) Magnesium Level 1.6mg/dL (1.8-2.4) Test 07/29/16 10:40 07/29/16 16:30 07/29/16 20:28 07/29/16 23:33 Glucose (Fingerstick) 126mg/dL (70-99) 287mg/dL (70-99) 362mg/dL (70-99) 174mg/dL (70-99) Test 07/30/16 06:35 Sodium Level 143mmol/L (136-145) Potassium Level 3.9mmol/L (3.5-5.1) Chloride Level 109mmol/L (98-107) Carbon Dioxide Level 31mmol/L (21-32) Anion Gap 3 (6-14) Blood Urea Nitrogen 23mg/dL (8-26) Creatinine 1.0mg/dL (0.7-1.3) Estimated GFR (Cockcroft-Gault) 88.6 Glucose Level 101mg/dL (70-99) Calcium Level 8.0mg/dL (8.5-10.1) Phosphorus Level 3.8mg/dL (2.6-4.7) Magnesium Level 1.7mg/dL (1.8-2.4) Laboratory Tests Test 07/29/16 16:30 07/29/16 20:28 07/29/16 23:33 07/30/16 06:35 Glucose (Fingerstick) 287mg/dL (70-99) 362mg/dL (70-99) 174mg/dL (70-99) Sodium Level 143mmol/L (136-145) Potassium Level 3.9mmol/L (3.5-5.1) Chloride Level 109mmol/L (98-107) Carbon Dioxide Level 31mmol/L (21-32) Anion Gap 3 (6-14) Blood Urea Nitrogen 23mg/dL (8-26) Creatinine 1.0mg/dL (0.7-1.3) Estimated GFR (Cockcroft-Gault) 88.6 Glucose Level 101mg/dL (70-99) Calcium Level 8.0mg/dL (8.5-10.1) Phosphorus Level 3.8mg/dL (2.6-4.7) Magnesium Level 1.7mg/dL (1.8-2.4) Brief Hospital Course Mr. Lloyd is a 75 old [sex] who presented with angio edema, was on comfort inhib , Needed to be intubated, He self extubated, doing well, BUt then feel while working with PT in ICU, was called in as a stemi, underwnt urgent cath but cath was clean, but eventually found to have PE and DVT, needs AC. Course remarkable for CP arrest PE, needing re intubation from the PE and DVT, Then might have developed a milder second episode of tongue swelling? has been off comfort inhib. NPO bec would fail Swallow, needed to start TPN so was a challenge to control BP bec was unable to take BP meds. Uncontrolled with 2 Clonicidne patches and prn hydralazine,. now on day of dc, able to pass with [employer] and now dysphagia2 and honey thickened. Will be able to give PO antihypertensives and maybe dec patch to 1,. Dw RN and SW Awaiting rpt CTA today ordered by pulmo for PE Xarelto started 15 BID x 21 days then 20 qD x 3 mos (duration recommendations by pulmo) Pt seen and examined COmplex stay dc 32 mins COnsults: see above DispO; PPLace Discharge Information Condition at Discharge: Improved, Stable Follow Up: Weeks ([place] in 6 mos for PADMINI and rpt sono) Disposition/Orders: Other (snu) Scheduled Atorvastatin Calcium (Atorvastatin Calcium) 40 MG PO HS (Reported) Atorvastatin Calcium (Atorvastatin Calcium) 20 MG PO HS (Reported) Budesonide/Formoterol Fumarate (Symbicort 160-4.5 Mcg Inhaler) 2 PUFF IH BID ( Reported) Diltiazem Hcl (Diltiazem 24HR Cd) 240 MG PO DAILY (Reported) Fluticasone/Salmeterol (Advair 100-50 Diskus) 1 PUFF IH BID (Reported) Insulin Aspart (Novolog Flexpen) 10 UNITS SQ TIDAC Insulin Detemir (Levemir Flextouch) 20 UNITS SQ QHS Isosorbide Mononitrate (Isosorbide Mononitrate Er) 120 MG PO DAILY (Reported) Lisinopril/Hydrochlorothiazide (Lisinopril-Hctz 10-12.5 Mg Tab) 1 TAB PO DAILY ( Reported) Promethazine Hcl/Codeine (Promethazine-Codeine Syrup) 5 ML PO Q4-6HRS (Reported ) Tiotropium [place] (Spiriva Respimat) 2.5 GM IH DAILY (Reported) Scheduled PRN Nitroglycerin (NITROGLYCERIN SubLingual) 0.4 MG SL PRN Q5MIN PRN PRN CHEST PAIN (Reported) Miscellaneous Medications Nph, Human Insulin Isophane (Novolin N) 0 SQ (Reported) BALA BRYANT MD Jul 30, 2016 11:05
[2016-07-30 11:24] VITALS: BP 146/74
[2016-07-30] MEDS: ASPIRIN ENTERIC COATED 81 MG TABLET.DR. PO SCH (13:08)
[2016-07-30] MEDS: DOCUSATE SODIUM 100 MG CAPSULE. PO SCH (13:08)
--- NOTE | 2016-07-30 13:25 | PDOC ---
SUBJECTIVE ROS ^Na - Doing better - remains on TPN OBJECTIVE Vital Signs Vital Signs Date Time Temp Pulse Resp B/P Pulse Ox O2 Delivery O2 Flow Rate FiO2 07/30/16 11:24 98.1 66 20 146/74 94 Room Air 98.1 I & 0 Intake and Output 07/30/16 07:00 Intake Total 2230 ml Output Total 1250 ml Balance 980 ml Intake Oral 420 ml IV Total 1810 ml Output Urine Total 1250 ml PHYSICAL EXAM Physical Exam General Appearance: Awake: Alert Oriented x 1-2 Neck: No JVD or JVP Chest: CTA Evan - rare rales Heart: S1 S2, ? murmur Abdomen - Soft NTND Extremities - min Edema DIAGNOSIS/ASSESSMENT ^Na - resolved Malignant HTN - now better controlled on Catapres #2 x 2 patches - CTA Renals noted - no critical stenosis noted Edema - restart Lasix in am Will s/o - pl call with Qs COMMENT/RELEVANT DATA Meds Current Medications Medications (Trade) Dose Ordered Sig/Ann Marie Start Time Stop Time Status Last Admin Dose Admin Albumin Human (Plasmanate) 500 ml @ 125 mls/hr PRN Q6HRS PRN 07/16/16 08:30 07/24/16 14:38 DC 07/17/16 08:12 125 MLS/HR Albuterol Sulfate (Ventolin Neb Soln) 2.5 mg PRN Q2HR PRN 07/12/16 16:00 07/30/16 02:25 2.5 MG Albuterol/ Ipratropium (Duoneb) 3 ml QID 07/12/16 17:00 UNV Alteplase, Recombinant (Activase) 100 ml @ 50 mls/hr 1X ONCE 07/15/16 17:30 07/15/16 19:29 DC 07/15/16 17:30 50 MLS/HR Alteplase, Recombinant (Cathflo) 2 mg 1X ONCE 07/26/16 15:45 07/26/16 15:46 DC 07/26/16 16:15 2 MG Amino Acids/ Electrolytes/ Dextrose (Clinimix E 4.25%-5% Solution) 1,000 ml @ 80 mls/hr [id number] 07/23/16 12:00 07/27/16 14:18 DC 07/27/16 04:34 80 MLS/HR Aspirin (Ecotrin) 81 mg [id number] 07/29/16 14:30 07/30/16 13:08 81 MG Atorvastatin Calcium (Lipitor) 40 mg HS 07/24/16 21:00 07/29/16 22:08 40 MG Atropine Sulfate 1 mg STK-MED ONCE 07/18/16 09:43 07/19/16 08:53 DC Atropine Sulfate 0.5 mg 0.5 mg STK-MED ONCE 07/18/16 09:43 07/18/16 09:44 DC Barium Sulfate (Varibar Thin Liquid Apple) 148 gm 1X ONCE 07/29/16 14:00 07/29/16 14:01 DC 07/29/16 14:57 148 GM Benzocaine (Hurricaine One) 1 spray STK-MED ONCE 07/12/16 12:00 07/13/16 16:00 DC Budesonide (Pulmicort) 0.5 mg RTBID 07/12/16 20:00 07/13/16 11:27 DC 07/13/16 07:30 0.5 MG Calcium Chloride 2,000 mg STK-MED ONCE 07/16/16 13:02 07/17/16 13:03 DC Ceftriaxone Sodium/Sodium Chloride (Rocephin/Iv Sodium Chloride 0.9% 50ml) 50 ml @ 100 mls/hr Q24H 07/14/16 12:00 07/20/16 12:29 DC 07/19/16 12:25 100 MLS/HR Chlorhexidine Gluconate (Peridex) 15 ml BID 07/13/16 09:00 07/23/16 09:42 DC 07/23/16 08:22 15 ML Clonidine HCl (Catapres Tts-2) 2 patch WEEKLY 07/26/16 10:00 07/26/16 10:34 2 PATCH Clonidine HCl 1 patch 1 patch WEEKLY 07/24/16 15:00 07/26/16 09:07 DC 07/24/16 19:05 1 PATCH Dextrose (Dextrose 50%-Water Syringe) 12.5 gm PRN Q15MIN PRN 07/26/16 13:30 07/26/16 13:27 25 GM Diltiazem HCl (Cardizem 24hr Cd) 240 mg DAILY 07/15/16 09:00 07/16/16 07:39 DC Diphenhydramine HCl (Benadryl) 25 mg PRN Q6HRS PRN 07/26/16 15:00 07/26/16 15:13 25 MG Docusate Sodium (Colace) 100 mg BID 07/21/16 21:00 07/30/16 13:08 100 MG Dopamine HCl/ Dextrose 400 mg STK-MED ONCE 07/15/16 11:00 07/16/16 08:06 DC Enoxaparin Sodium (Lovenox 100mg Syringe) 100 mg Q12HR 07/28/16 11:00 07/30/16 10:24 DC 07/29/16 22:08 100 MG Enoxaparin Sodium (Lovenox 40mg Syringe) 40 mg DAILY 07/12/16 16:30 07/15/16 14:28 DC 07/15/16 08:54 40 MG Epinephrine HCl 4 mg STK-MED ONCE 07/16/16 13:02 07/17/16 13:03 DC Fentanyl Citrate (Fentanyl 2ml Vial) 50 mcg PRN Q2HR PRN 07/22/16 04:45 07/30/16 08:40 50 MCG Fentanyl Citrate (Fentanyl 600 Mcg/30 ml ELEVATOR ERECTOR HELPER) 30 ml @ 0 mls/hr CONT PRN 07/16/16 07:15 07/26/16 09:04 DC 07/25/16 17:57 2.5 MLS/HR Furosemide (Lasix) 40 mg [id number] 07/27/16 10:30 07/28/16 11:01 DC 07/28/16 08:31 40 MG Glycopyrrolate (Robinul) 1 mg STK-MED ONCE 07/12/16 15:00 07/13/16 08:54 DC Guaifenesin (Mucinex) 600 mg BID 07/15/16 09:00 07/16/16 07:39 DC Heparin Sodium (Porcine) (Heparin Sodium) 1,600 unit PRN Q6HRS PRN 07/24/16 13:39 Cancel Heparin Sodium (Porcine) 2500 unit 2,500 unit 1X ONCE 07/16/16 09:15 07/16/16 09:16 DC 07/16/16 10:44 2,500 UNIT Heparin Sodium (Porcine) 7400 unit 7,400 unit 1X ONCE 07/19/16 09:45 07/19/16 09:53 DC 07/19/16 10:03 7,400 UNIT Heparin Sodium/ Dextrose 500 ml @ 0 mls/hr CONT PRN 07/19/16 09:45 07/25/16 13:12 DC 07/25/16 01:58 25.2 MLS/HR Heparin Sodium/ Sodium Chloride 1,000 unit 1X ONCE 07/17/16 11:15 07/17/16 11:26 DC 07/17/16 11:27 1,000 UNIT Heparin Sodium/ Sodium Chloride 1000 unit 1,000 unit 1X ONCE 07/15/16 12:00 07/15/16 12:01 DC Hydralazine HCl (Apresoline) 20 mg PRN Q4HRS PRN 07/24/16 14:45 07/29/16 10:13 20 MG Hydrochlorothiazide (Microzide) 12.5 mg DAILY 07/15/16 09:00 07/16/16 07:39 DC Hydrocortisone Sodium Succinate (Solu-Cortef) 25 mg BID 07/26/16 09:00 07/27/16 10:07 DC 07/27/16 09:48 25 MG Hydrocortisone Sodium Succinate 25 mg 25 mg DAILY 07/28/16 09:00 07/29/16 09:01 DC 07/29/16 08:27 25 MG Info (Anti-Coagulation Monitoring By Pharmacy) 1 each PRN DAILY PRN 07/16/16 08:45 Cancel Info (Do NOT chart on this entry -- for MONITORING) 1 each PRN DAILY PRN 07/30/16 08:00 08/01/16 07:59 Info 1 each 1 each PRN DAILY PRN 07/14/16 09:30 07/19/16 16:30 DC 07/18/16 08:27 1 EACH Insulin Aspart (Novolog) 0-9 UNITS Q6HRS 07/21/16 13:00 07/30/16 13:14 4 UNITS Insulin Aspart 10 units 10 units 1X ONCE 07/12/16 19:45 07/12/16 19:46 DC 07/12/16 19:41 10 UNITS Insulin Aspart 20 units 20 units 1X ONCE 07/18/16 08:15 07/18/16 11:56 DC 07/18/16 10:02 20 UNITS Insulin Detemir (Levemir) 25 units QHS 07/21/16 21:00 07/26/16 08:09 DC 07/25/16 21:16 25 UNITS Insulin Human Regular (Novolin R Vial) 10 unit 1X ONCE 07/12/16 13:15 07/12/16 13:16 DC 07/12/16 13:16 10 UNIT Insulin Human Regular 150 unit/ Sodium Chloride 151.5 ml @ 0 mls/hr CONT PRN 07/16/16 05:00 07/17/16 10:10 DC 07/17/16 02:26 5.15 MLS/HR Insulin Human Regular/Sodium Chloride (Novolin R Vial/ Iv Normal Saline 150ml) 151.5 ml @ 0 mls/hr CONT PRN 07/18/16 11:45 07/19/16 10:27 DC 07/18/16 13:54 13.3 MLS/HR Iohexol (Omnipaque 300 Mg/ml) 75 ml 1X ONCE 07/30/16 08:00 07/30/16 08:01 DC 07/30/16 10:37 75 ML Iohexol (Omnipaque 350 Mg/ml) 100 ml 1X ONCE 07/28/16 12:00 07/28/16 12:01 DC 07/28/16 12:01 100 ML Ipratropium [place] (Atrovent) 0.5 mg RTQID 07/16/16 12:00 07/30/16 13:10 0.5 MG Isosorbide Mononitrate (Imdur) 120 mg DAILY 07/15/16 09:00 07/16/16 07:39 DC Ketamine HCl 500 mg STK-MED ONCE 07/12/16 18:30 07/13/16 12:05 DC Lidocaine HCl 10 ml 1X ONCE 07/15/16 12:00 07/15/16 12:01 DC 07/15/16 11:57 10 ML Lidocaine HCl (Xylocaine 2% Topical 5gm Tube) 5 margie STK-MED ONCE 07/12/16 12:00 07/13/16 16:00 DC Lidocaine HCl 20 ml 20 ml STK-MED ONCE 07/15/16 10:45 07/15/16 10:46 DC Lidocaine/Sodium Bicarbonate (Buffered Lidocaine 1%) 3 ml 1X ONCE 07/17/16 11:15 07/17/16 11:26 DC 07/17/16 11:15 3 ML Lorazepam (Ativan) 1 mg PRN Q4HRS PRN 07/26/16 01:30 4/3/17 11:55 1 MG Magnesium Sulfate/ Dextrose 50 ml @ 25 mls/hr PRN DAILY PRN 07/27/16 10:15 07/27/16 14:19 DC Methylprednisolone Sodium Succinate (Solu-Medrol 40mg Vial) 60 mg DAILY 07/13/16 09:00 07/13/16 09:00 DC Methylprednisolone Sodium Succinate (Solu-Medrol 125mg Vial) 125 mg 1X ONCE 07/26/16 15:30 07/26/16 15:31 DC 07/26/16 15:11 125 MG Metoprolol Tartrate (Lopressor) 5 mg Q6HRS 07/22/16 12:30 07/26/16 09:08 DC 07/26/16 06:09 5 MG Midazolam HCl (Versed 100mg/ 100ml Premix) 100 ml @ As Directed STK-MED ONCE 07/15/16 11:03 07/15/16 11:04 DC Midazolam HCl (Versed) 4 mg PRN Q1HR PRN 07/22/16 04:47 07/22/16 05:33 4 MG Midazolam HCl 1 mg 1 mg PRN Q1HR PRN 07/20/16 11:15 07/22/16 04:46 DC Multi-Ingred Cream/Lotion/Oil/ Oint (Artificial Tears Eye Oint) 1 margie PRN Q1HR PRN 07/13/16 11:00 07/13/16 15:45 1 MARGIE Mupirocin (Bactroban) 1 margie BID 07/15/16 09:00 07/29/16 22:08 1 MARGIE Nicardipine HCl/ Sodium Chloride (Cardene/Iv Sodium Chloride 0.9% 250ml) 270 ml @ 0 mls/hr CONT PRN 07/25/16 08:45 07/26/16 09:04 DC 07/25/16 22:46 54 MLS/HR Non-Formulary Medication 2.5 gm DAILY 07/13/16 09:00 UNV Norepinephrine Bitartrate/Sodium Chloride (Levophed Vial/ Iv Sodium Chloride 0.9% 250ml) 258 ml @ 0 mls/hr CONT PRN 07/15/16 11:00 07/26/16 09:04 DC 07/17/16 00:51 25.15 MLS/HR Oxycodone/ Acetaminophen 1 tab 1 tab PRN Q6HRS PRN 07/30/16 11:00 Oxymetazoline HCl (Afrin) 2 spray 1X ONCE 07/12/16 18:30 07/12/16 18:31 DC Pantoprazole Sodium (Protonix Vial) 40 mg DAILYAC 07/23/16 04:47 07/30/16 10:24 DC 07/30/16 08:39 40 MG Pantoprazole Sodium (Protonix) 40 mg DAILYAC 07/31/16 07:30 Pantoprazole Sodium/Sodium Chloride (Protonix Iv/Iv Sodium Chloride 0.9% 100ml) 100 ml @ 10 mls/hr Q10H 07/17/16 06:45 07/21/16 12:21 DC 07/21/16 10:10 10 MLS/HR Potassium Acetate/ Magnesium Sulfate/ Calcium Gluconate/ Multivitamins/ Chromium/Copper/ Manganese/Seleni/ Zn/Insulin Human Regular/Total Parenteral Nutrition/Amino Acids/Dextrose/ Fat Emulsion Intravenous (Calcium Gluconate/ Infuvite Adult/ Multitrace-5 Conc/ Novolin R Vial/ Tpn - Tpn Flu... 1,920 ml @ 80 mls/hr TPN CONT 07/30/16 22:00 07/31/16 21:59 Cancel Potassium Chloride (KCl Premix 20meq) 50 ml @ 50 mls/hr PRN Q2HR PRN 07/27/16 10:15 07/27/16 14:19 DC Prednisone (Prednisone) 60 mg 1X ONCE 07/12/16 12:30 07/12/16 12:31 DC 07/12/16 12:40 60 MG Promethazine HCl/ Codeine (Phenergan With Codeine) 5 ml QID 07/12/16 17:00 07/13/16 17:18 DC Propofol (Diprivan) 1,000 mg STK-MED ONCE 07/17/16 16:36 07/19/16 08:22 DC Rivaroxaban (Xarelto) 15 mg [id number] 07/30/16 17:00 Rocuronium [place] (Zemuron) 50 mg STK-MED ONCE 07/12/16 15:00 07/13/16 08:54 DC Scopolamine (Transderm-Scop) 1 patch Q3DAYS 07/18/16 09:00 07/30/16 08:41 1 PATCH Scopolamine 1 patch 1 patch ONCE ONCE 07/15/16 23:30 07/15/16 23:31 DC Sodium Bicarbonate 50 meq 50 meq 1X ONCE 07/15/16 16:30 07/15/16 16:34 DC 07/15/16 16:30 50 MEQ Sodium Polystyrene Sulfonate (Kayexalate) 30 gm 1X ONCE 07/15/16 08:00 07/15/16 08:08 DC Sodium Polystyrene Sulfonate 30 gm 30 gm 1X ONCE 07/16/16 08:30 07/16/16 08:34 DC 07/16/16 08:41 30 GM Sodium Acetate/ Potassium Acetate/ Magnesium Sulfate/ Calcium Gluconate/ Multivitamins/ Chromium/Copper/ Manganese/Seleni/ Zn/Insulin Human Regular/Total Parenteral Nutrition/Amino Acids/Dextrose/ Fat Emulsion Intravenous (Calcium Gluconate/ Infuvite Adult/ Multitrace-5 Conc/ Novolin R Vi... 1,512 ml @ 63 mls/hr TPN CONT 07/18/16 22:00 07/19/16 21:59 DC 07/18/16 22:03 63 MLS/HR Sodium Bicarbonate 50 meq 1X ONCE 07/16/16 08:45 07/16/16 08:46 DC 07/16/16 08:41 50 MEQ Sodium Chloride (Iv Sodium Chloride 0.9% 1000ml Bag) 1,000 ml @ 75 mls/hr [id number] 07/20/16 11:15 07/23/16 11:50 DC 07/23/16 05:31 75 MLS/HR Sodium Chloride 40 meq/Sodium Acetate 40 meq/ Magnesium Sulfate 8 meq/Calcium Gluconate 5 meq/ Multivitamins 10 ml/Chromium/ Copper/Manganese/ Seleni/Zn 1 ml/ Insulin Human Regular 10 unit/ Total Parenteral Nutrition/Amino Acids/Dextrose/ Fat Emulsion Intravenous 1,512 ml @ 63 mls/hr TPN CONT 07/16/16 22:00 07/17/16 21:59 DC 07/16/16 21:53 63 MLS/HR Sodium Chloride/ Magnesium Sulfate/ Calcium Gluconate/ Multivitamins/ Chromium/Copper/ Manganese/Seleni/ Zn/Total Parenteral Nutrition/Amino Acids/Dextrose (Sodium Chloride/ Infuvite Adult/ Multitrace-5 Conc/ Tpn - Tpn Fluid/ Trophamine/ Dextrose 70%-Water Iv Soln) 1,512 ml @ 63 mls/hr TPN CONT 07/15/16 22:00 07/16/16 21:59 DC 07/15/16 21:27 63 MLS/HR Succinylcholine Chloride (Anectine) 200 mg STK-MED ONCE 07/12/16 18:00 07/13/16 09:05 DC Vasopressin 40 unit/Dextrose 102 ml @ 6 mls/hr CONT PRN 07/16/16 05:00 07/24/16 14:38 DC 07/17/16 13:33 6 MLS/HR Vecuronium [place] 10 mg 10 mg STK-MED ONCE 07/15/16 11:03 07/15/16 11:04 DC Vecuronium [place]/Dextrose (Norcuron) 100 ml @ 0 mls/hr CONT PRN 07/12/16 21:00 07/14/16 09:31 DC 07/13/16 20:48 2.58 MLS/HR Vecuronium [place] (Norcuron Bolus) 10 mg STK-MED ONCE 07/15/16 11:00 07/16/16 08:06 DC Warfarin Sodium (Coumadin Per Pharmacy) 1 each PRN DAILY PRN 07/19/16 09:45 07/26/16 15:34 DC 07/26/16 14:48 1 EACH Warfarin Sodium (Coumadin) 5 mg 1X WARF ONCE 07/26/16 16:00 07/26/16 16:01 Cancel Warfarin Sodium 7.5 mg 7.5 mg 1X WARF ONCE 07/23/16 16:00 07/23/16 16:01 DC 07/23/16 16:53 7.5 MG Lab Laboratory Tests Test 07/29/16 16:30 07/29/16 20:28 07/29/16 23:33 07/30/16 06:35 Glucose (Fingerstick) 287mg/dL (70-99) 362mg/dL (70-99) 174mg/dL (70-99) Sodium Level 143mmol/L (136-145) Potassium Level 3.9mmol/L (3.5-5.1) Chloride Level 109mmol/L (98-107) Carbon Dioxide Level 31mmol/L (21-32) Anion Gap 3 (6-14) Blood Urea Nitrogen 23mg/dL (8-26) Creatinine 1.0mg/dL (0.7-1.3) Estimated GFR (Cockcroft-Gault) 88.6 Glucose Level 101mg/dL (70-99) Calcium Level 8.0mg/dL (8.5-10.1) Phosphorus Level 3.8mg/dL (2.6-4.7) Magnesium Level 1.7mg/dL (1.8-2.4) Test 07/30/16 12:03 Glucose (Fingerstick) 181mg/dL (70-99) FELIBERTO GIL MD Jul 30, 2016 13:25
--- NOTE | 2016-07-30 14:19 | PDOC ---
PULMONARY PROGRESS NOTES Subjective EXTUBATEd 07/22 NO INCREASE SOA Vitals Vital Signs Date Time Temp Pulse Resp B/P Pulse Ox O2 Delivery O2 Flow Rate FiO2 07/30/16 13:32 Room Air 07/30/16 11:24 98.1 66 20 146/74 94 98.1 General: Alert, No acute distress HEENT: Other (nc at orally intubated, nose clear, ) Lungs: Other (decreased breath sounds bilaterally. ) Cardiovascular: S1, S2 Abdomen: Soft, Non-tender, Other (no groin tenderness) Neuro Exam: Alert Extremities: Other (2+EDEMA) Skin: Warm Labs Laboratory Tests Test 07/28/16 19:26 07/28/16 21:00 07/28/16 23:13 07/29/16 02:30 Glucose (Fingerstick) 207mg/dL (70-99) 163mg/dL (70-99) Potassium Level 3.8mmol/L (3.5-5.1) 3.6mmol/L (3.5-5.1) White Blood Count 13.9x10^3/uL (4.0-11.0) Red Blood Count 3.38x10^6/uL (4.30-5.70) Hemoglobin 9.5g/dL (13.0-17.5) Hematocrit 29.6% (39.0-53.0) Mean Corpuscular Volume 88fL (79-100) Mean Corpuscular Hemoglobin 28pg (25-35) Mean Corpuscular Hemoglobin Concent 32g/dL (31-37) Red Cell Distribution Width 15.1% (11.5-14.5) Platelet Count 214x10^3/uL (140-400) Neutrophils (%) (Auto) 78% (31-73) Lymphocytes (%) (Auto) 12% (24-48) Monocytes (%) (Auto) 9% (0-9) Eosinophils (%) (Auto) 1% (0-3) Basophils (%) (Auto) 1% (0-3) Neutrophils # (Auto) 10.8x10^3uL (1.8-7.7) Lymphocytes # (Auto) 1.6x10^3/uL (1.0-4.8) Monocytes # (Auto) 1.3x10^3/uL (0.0-1.1) Eosinophils # (Auto) 0.1x10^3/uL (0.0-0.7) Basophils # (Auto) 0.1x10^3/uL (0.0-0.2) Sodium Level 146mmol/L (136-145) Chloride Level 109mmol/L (98-107) Carbon Dioxide Level 31mmol/L (21-32) Anion Gap 6 (6-14) Blood Urea Nitrogen 27mg/dL (8-26) Creatinine 1.0mg/dL (0.7-1.3) Estimated GFR (Cockcroft-Gault) 88.6 Glucose Level 165mg/dL (70-99) Calcium Level 8.4mg/dL (8.5-10.1) Phosphorus Level 3.9mg/dL (2.6-4.7) Magnesium Level 1.6mg/dL (1.8-2.4) Test 07/29/16 05:33 07/29/16 08:02 07/29/16 10:40 07/29/16 16:30 Glucose (Fingerstick) 189mg/dL (70-99) 204mg/dL (70-99) 126mg/dL (70-99) 287mg/dL (70-99) Test 07/29/16 20:28 07/29/16 23:33 07/30/16 06:35 07/30/16 12:03 Glucose (Fingerstick) 362mg/dL (70-99) 174mg/dL (70-99) 181mg/dL (70-99) Sodium Level 143mmol/L (136-145) Potassium Level 3.9mmol/L (3.5-5.1) Chloride Level 109mmol/L (98-107) Carbon Dioxide Level 31mmol/L (21-32) Anion Gap 3 (6-14) Blood Urea Nitrogen 23mg/dL (8-26) Creatinine 1.0mg/dL (0.7-1.3) Estimated GFR (Cockcroft-Gault) 88.6 Glucose Level 101mg/dL (70-99) Calcium Level 8.0mg/dL (8.5-10.1) Phosphorus Level 3.8mg/dL (2.6-4.7) Magnesium Level 1.7mg/dL (1.8-2.4) Laboratory Tests Test 07/29/16 16:30 07/29/16 20:28 07/29/16 23:33 07/30/16 06:35 Glucose (Fingerstick) 287mg/dL (70-99) 362mg/dL (70-99) 174mg/dL (70-99) Sodium Level 143mmol/L (136-145) Potassium Level 3.9mmol/L (3.5-5.1) Chloride Level 109mmol/L (98-107) Carbon Dioxide Level 31mmol/L (21-32) Anion Gap 3 (6-14) Blood Urea Nitrogen 23mg/dL (8-26) Creatinine 1.0mg/dL (0.7-1.3) Estimated GFR (Cockcroft-Gault) 88.6 Glucose Level 101mg/dL (70-99) Calcium Level 8.0mg/dL (8.5-10.1) Phosphorus Level 3.8mg/dL (2.6-4.7) Magnesium Level 1.7mg/dL (1.8-2.4) Test 07/30/16 12:03 Glucose (Fingerstick) 181mg/dL (70-99) Medications Active Scripts Medications Dose Route/Sig Days Date Category Advair 100-50 Diskus (Fluticasone/Salmeterol) 1 Each Disk.w.dev 1 Puff IH BID 06/21/16 Reported Spiriva Respimat (Tiotropium [place]) 4 Gm Mist.inhal 2.5 Gm IH DAILY 06/21/16 Reported Symbicort 160-4.5 Mcg Inhaler (Budesonide/Formoterol Fumarate) 10.2 Gm Hfa.aer.ad 2 Puff IH BID 06/21/16 Reported Atorvastatin Calcium 20 Mg Tablet 20 Mg PO HS 06/21/16 Reported Lisinopril-Hctz 10-12.5 Mg Tab (Lisinopril/Hydrochlorothiazide) 1 Each Tablet 1 Tab PO DAILY 06/21/16 Reported Isosorbide Mononitrate Er (Isosorbide Mononitrate) 120 Mg Tab.er.24h 120 Mg PO DAILY 06/21/16 Reported Levemir Flextouch (Insulin Detemir) 100 Unit/1 Ml Insuln.pen 20 Units SQ QHS 30 11/24/15 Rx Novolog Flexpen (Insulin Aspart) 100 Unit/1 Ml Insuln.pen 10 Units SQ TIDAC 30 11/24/15 Rx Novolin N (Nph, Human Insulin Isophane) 100 Unit/1 Ml Vial 0 SQ 11/18/15 Reported Promethazine-Codeine Syrup (Promethazine Hcl/Codeine) 118 Ml Syrup 5 Ml PO Q4-6HRS 11/18/15 Reported Diltiazem 24HR Cd (Diltiazem Hcl) 240 Mg Cap.er.24h 240 Mg PO DAILY 11/18/15 Reported NITROGLYCERIN SubLingual (Nitroglycerin) 0.4 Mg Tab.subl 0.4 Mg SL PRN Q5MIN PRN 11/18/15 Reported Atorvastatin Calcium 40 Mg Tablet 40 Mg PO HS 11/18/[address] reviewed, 1. Widespread multifocal bilateral segmental pulmonary embolism, with nonocclusive lobar embolism involving the right lower and middle lobes. 2. Diffuse tree-in-bud opacification suggestive of acute bronchiolitis. Findings are less confluence than on the prior examination, but now involve the lower lobes. 3. Right heart enlargement with straightening of the interventricular septum possibly due to pulmonary hypertension. Correlate clinically and consider echocardiography if warranted. 4. Short segment high-grade stricture and/or focal obliteration of the right upper lobe bronchus. No adjacent mass or evidence of extrinsic compression. This is stable. CXR REVIEWED Impression . 1. Acute respiratory failure secondary to angioedema, self extubated 07/14, reintubated 07/15, s/p cardiopulmonary arrest, Acute extensive PE, DVT, s/p TPA 2. Acute extensive PE with shock, DVT, s/p TPA, 2. Lisinopril induced angioedema. resolved 3. Chronic obstructive pulmonary disease. 4. Hypertension. 5. Coronary artery disease. s/p emergent cath.no sig disease 6. BASIM, improving 7. anemia, Plan . NEEDS REHAB SPEECH EVALUATION / ADVANCE DIET D/W RN RESUME XARELTO DYSPHAGIA IMPROVING REPEAT CXR STABLE OFF STEROIDS ANTICOAGULATION FOR AT LEAST [address] CHEST REVIEWED. PREVIOUSLY SEEN EMBOLI ARE COMPLETELY RESOLVED. WOULD RECOMMEND 3 MONTHS OF TOTAL AC IVANA COX MD Jul 30, 2016 14:18
--- NOTE | 2016-07-30 15:11 | RAD ---
CT a of the chest with contrast, 07/30/2016: History: Follow-up pulmonary emboli Multidetector CT imaging was performed following an IV bolus injection of iodinated contrast material. Multiplanar reconstructions were produced including coronal MIP images. Comparison is made to a study from 07/15/2016. The central pulmonary artery are well opacified. The multiple bilateral segmental and subsegmental filling defects seen on the previous study have cleared. No definite residual pulmonary embolus is seen. There is moderate calcific plaquing of the thoracic aorta without evidence of aneurysm. 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 There are mild scattered coronary artery calcifications. A moderate volume of left-sided pleural fluid has developed there is only a trace amount of pleural fluid on the right in the posterior gutter. Evaluation of the lung parenchyma is partially compromised by patient respiratory motion artifact. Scattered tree-in-bud type opacities present in the lungs on the previous study have regressed. There are some residual tree-in-bud type opacities, best seen in the lingula. Subpleural blebs are present in the apices, more so on the right. There is streaky atelectasis in the lung bases. There is an elongated fluid collection present in the lower chest along the anterior aspect of the heart and the posterior aspect of the anterior chest wall. This probably lies in the mediastinum. It measures approximately 3 cm in greatest AP dimension on the axial scans and 12 cm in width. It demonstrates a CT number of 36 Hounsfield units. It is unchanged since 07/28/2016. Its origin is unclear, however, this may represent an old hematoma from previous intervention, surgery or resuscitation measures. Loculated pleural fluid extending into this region is less likely. A small amount of ascites is noted in the upper abdomen. Mild anasarca is again noted. IMPRESSION: 1. Previously seen bilateral pulmonary emboli have resolved. 2. A moderate size left pleural effusion has developed. 3. Improving bilateral tree in bud type pulmonary infiltrates. 4. Unusual elongated fluid collection along the posterior chest wall in the lower chest as described above. PQRS Compliance Statement: One or more of the following individualized dose reduction techniques were utilized for this examination: 1. Automated exposure control 2. Adjustment of the mA and/or kV according to patient size 3. Use of iterative reconstruction technique
[2016-07-30] MEDS ORDERED: RIVAROXABAN 15 MG TABLET. PO SCH (17:00)
[2016-07-30] MEDS ORDERED: [UNRECOGNIZED DRUG - OTHER] IV SCH ×9 (22:00)
[2016-07-30] MEDS ORDERED: TOTAL PARENTERAL NUTRITION IV SCH ×9 (22:00)
[2016-07-30] MEDS ORDERED: AMINO ACIDS IV SCH ×9 (22:00)
[2016-07-30] MEDS ORDERED: DEXTROSE 70% IV SCH ×9 (22:00)
[2016-07-31] MEDS ORDERED: PANTOPRAZOLE 40 MG TABLET.DR. PO SCH (07:30)
== END 2016-07-30 15:15 | DRG 166 ==
LOC: ER 11:06 → 5 SOUTH 14:19 → 1 WEST ICU 16:18 → 2 SOUTH 07-27 20:41
PROVIDERS: ADMIT Internal Medicine; ATTEND Internal Medicine
PROC: 5A12012 Performance of Cardiac Output, Single, Manual (ICD-10-PCS; 2016-07-12)
PROC: 5A1945Z Respiratory Ventilation, 24-96 Consecutive Hours (ICD-10-PCS; 2016-07-12)
PROC: 5A1955Z Respiratory Ventilation, Greater than 96 Consecutive Hours (ICD-10-PCS; 2016-07-15)
PROC: 4A023N7 Measurement of Cardiac Sampling and Pressure, Left Heart, Percutaneous Approach (ICD-10-PCS; 2016-07-15)
PROC: B2111ZZ Fluoroscopy of Multiple Coronary Arteries using Low Osmolar Contrast (ICD-10-PCS; 2016-07-15)
PROC: B2151ZZ Fluoroscopy of Left Heart using Low Osmolar Contrast (ICD-10-PCS; 2016-07-15)
PROC: 3E03317 Introduction of Other Thrombolytic into Peripheral Vein, Percutaneous Approach (ICD-10-PCS; 2016-07-15)
PROC: 06H03DZ Insertion of Intraluminal Device into Inferior Vena Cava, Percutaneous Approach (ICD-10-PCS; 2016-07-16)
PROC: 02H633Z Insertion of Infusion Device into Right Atrium, Percutaneous Approach (ICD-10-PCS; 2016-07-16)
PROC: B244ZZZ Ultrasonography of Right Heart (ICD-10-PCS; 2016-07-16)
PROC: 0BH17EZ Insertion of Endotracheal Airway into Trachea, Via Natural or Artificial Opening (ICD-10-PCS; principal; 2016-07-17)
PROC: B5191ZZ Fluoroscopy of Inferior Vena Cava using Low Osmolar Contrast (ICD-10-PCS; 2016-07-17)
PROC: 30233N1 Transfusion of Nonautologous Red Blood Cells into Peripheral Vein, Percutaneous Approach (ICD-10-PCS; 2016-07-20)
DX: J96.00 Acute respiratory failure, unspecified whether with hypoxia or hypercapnia (principal); I26.99 Other pulmonary embolism without acute cor pulmonale; N17.0 Acute kidney failure with tubular necrosis; E43 Unspecified severe protein-calorie malnutrition; I46.9 Cardiac arrest, cause unspecified; R57.8 Other shock; E87.0 Hyperosmolality and hypernatremia; E87.1 Hypo-osmolality and hyponatremia; E87.2 Acidosis; I74.5 Embolism and thrombosis of iliac artery; J44.1 Chronic obstructive pulmonary disease with (acute) exacerbation; J90 Pleural effusion, not elsewhere classified; N39.0 Urinary tract infection, site not specified; I82.401 Acute embolism and thrombosis of unspecified deep veins of right lower extremity; D64.9 Anemia, unspecified; E11.65 Type 2 diabetes mellitus with hyperglycemia; E11.9 Type 2 diabetes mellitus without complications; E78.5 Hyperlipidemia, unspecified; E87.5 Hyperkalemia; E87.6 Hypokalemia; E88.09 Other disorders of plasma-protein metabolism, not elsewhere classified; I10 Essential (primary) hypertension; I16.0 Hypertensive urgency; I25.10 Atherosclerotic heart disease of native coronary artery without angina pectoris; I70.0 Atherosclerosis of aorta; I70.8 Atherosclerosis of other arteries; I71.4 Abdominal aortic aneurysm, without rupture; I72.3 Aneurysm of iliac artery; E78.00 Pure hypercholesterolemia, unspecified; K82.8 Other specified diseases of gallbladder; Z79.4 Long term (current) use of insulin; Z82.49 Family history of ischemic heart disease and other diseases of the circulatory system; Z86.74 Personal history of sudden cardiac arrest; Z87.891 Personal history of nicotine dependence; Z91.19 Patient's noncompliance with other medical treatment and regimen; Z88.8 Allergy status to other drugs, medicaments and biological substances; Z68.32 Body mass index [BMI] 32.0-32.9, adult; I25.2 Old myocardial infarction; T78.3XXA Angioneurotic edema, initial encounter; T46.4X5A Adverse effect of angiotensin-converting-enzyme inhibitors, initial encounter; Z51.5 Encounter for palliative care
CPT/HCPCS: 36415; 36556; 36600; 37191; 70450; 70486; 70490; 71010; 71275; 74000; 74174; 74230; 76700; 76770; 76937; 80048; 80053; 80069; 80074; 81001; 82088; 82550; 82565; 82805; 82947; 83520; 83605; 83615; 83690; 83735; 84100; 84132; 84165; 84166; 84244; 84300; 84439; 84443; 84478; 84481; 84484; 84550; 85007; 85018; 85027; 85520; 85610; 85730; 86334; 86850; 86900; 86901; 86920; 87040; 87086; 87186; 87641; 93005; 93306; 93458; 93970; 94002; 94003; 94250; 94640; 94660; 94760; 96361; 96374; 96375; C1769; C1771; C1892; C1894; C9113; G0269; J0171; J0330; J0360; J0461; J0610; J0696; J1200; J1265; J1650; J1720; J1815; J1940; J2060; J2250; J2704; J2920; J2930; J2997; J3010; J3475; J3480; J3490; J7030; J7040; J7042; J7050; J7512; J7620; J7644; P9016; P9045; Q9967; 92526; 92610; 92611; 97110; 97116; 97530; 97535; 99285-25

== ENCOUNTER → 2016-08-02 | Outpatient (CLI) | payer MEDICARE ==
[2016-07-30 11:24] VITALS: BP 146/74
[~2016-08-02] MED LIST changes: +OXYC-323 PO
--- NOTE | 2016-08-02 14:15 | RAD ---
Right upper extremity venous ultrasound, 08/02/2016: History: Right neck wound after catheter removal Duplex evaluation of the major veins in the right shoulder and upper extremity was performed including grayscale, color-flow and spectral Doppler analysis. There is a small focal area of echogenic mural thickening in the right internal jugular vein. The appearance is that of nonocclusive thrombus. The age is unclear, however, reportedly the patient has recently had a catheter removed from this region. No abnormal fluid collection is seen in the adjacent soft tissues in the right lower neck to suggest abscess or hematoma. The right subclavian, axillary and brachial veins are widely patent. Patent cephalic, basilic, ulnar and radial veins are evident in the right arm. IMPRESSION: 1. Small nonocclusive mural thrombus in the right internal jugular vein. 2. No evidence of deep vein thrombosis in the right upper extremity. 3. No sonographic evidence of significant hematoma or abscess in the right lower neck. Note: The findings were called to the patient's nurse at [facility] at 2:12 PM on 08/02/2016.
== END | disposition home or self-care (01) ==
LOC: US 13:10
PROVIDERS: ATTEND Internal Medicine
DX: I82.C11 Acute embolism and thrombosis of right internal jugular vein (principal)
CPT/HCPCS: 93971

== ENCOUNTER → 2016-08-03 | Outpatient (CLI) | payer MEDICARE ==
[2016-08-03 10:43] LABS: HEMATOCRIT 24.9 % (39.0-53.0)
[2016-08-03 11:51] VITALS: BP 155/75
[2016-08-03 12:15] VITALS: BP 153/82
[2016-08-03 13:15] VITALS: BP 145/73
[2016-08-03 13:59] VITALS: BP 158/76
== END | disposition home or self-care (01) ==
LOC: OPS 09:16
PROVIDERS: ATTEND Internal Medicine
DX: D64.9 Anemia, unspecified (principal)
CPT/HCPCS: 36415; 36430; 85014; 85018; 86850; 86900; 86901; 86920; P9016

== ENCOUNTER 2016-09-21 17:23 | Emergency (ER) | payer MEDICARE ==
[~2016-09-21] VITALS: Ht 188 cm; Wt 82.6 kg
[2016-09-21 18:34] LABS: BILIRUBIN,URINE NEGATIVE (NEG); GLUCOSE,URINE NEGATIVE (NEG); NITRITE,URINE NEGATIVE (NEG); PROTEIN,URINE >=300 mg/dL (NEG-TRACE); UROBILINOGEN,URINE 0.2 mg/dL (0.2 mg/dL)
[2016-09-21 18:39] LABS: BACTERIA,URINE FEW /HPF (0-FEW); SQUAMOUS EPITHELIAL CELL,UR FEW /LPF
[2016-09-21 19:02] VITALS: BP 181/119
[2016-09-21] MEDS ORDERED: LEVO750T5 PO (19:16)
--- NOTE | 2016-09-21 19:17 | PHYS DOC ---
Past Medical History Past Medical History: COPD, Diabetes-Type II, High Cholesterol, Hypertension, [place], Prostatitis Past Surgical History: Other Additional Past Surgical Histo: lung surgery? Alcohol Use: None Drug Use: None Adult General Chief Complaint Chief Complaint: SHORTNESS OF BREATH HPI HPI Patient is a 76 year old male who presents by EMS from home for 3 days of increased cough, sputum changes, and dyspnea. He and daughter note he was waiting for medication delivery today, but it did not come, so he called EMS to come here. He was supposed to receive antibiotics from his PCP for a COPD exacerbation. He notes currently taking prednisone for this. He denies chest pain, hemoptysis, leg pain or swelling. Also states he has 1 month of intermittent dysuria. He denies abdominal pain, back pain, hematuria, penile discharge or penile pain. Review of Systems Review of Systems Constitutional: Denies fever or chills [] Eyes: Denies change in visual acuity, redness, or eye pain [] HENT: Denies nasal congestion or sore throat [] Respiratory: Has cough and shortness of breath [] Cardiovascular: No additional information not addressed in HPI [] GI: Denies abdominal pain, nausea, vomiting, bloody stools or diarrhea [] : Denies hematuria [] Musculoskeletal: Denies back pain or joint pain [] Integument: Denies rash or skin lesions [] Neurologic: Denies headache, focal weakness or sensory changes [] Endocrine: Denies polyuria or polydipsia [] Allergies Allergies Allergies Coded Allergies Type Severity Reaction Last Updated Verified lisinopril Allergy Severe Anaphylaxis 08/03/16 Yes I S O L A T I O N *CONTACT* Allergy Unknown 08/03/16 Yes Physical Exam Physical Exam Constitutional: Well developed, well nourished, no acute distress, non-toxic appearance. [] HENT: Normocephalic, atraumatic, bilateral external ears normal, oropharynx moist, no oral exudates, nose normal. [] Eyes: PERRLA, EOMI, conjunctiva normal, no discharge. [] Neck: Normal range of motion, no tenderness, supple. [] Cardiovascular:Heart rate regular rhythm [] Lungs & Thorax: Bilateral breath sounds clear to auscultation [] Abdomen: Bowel sounds normal, soft, no tenderness. [] Skin: Warm, dry, no erythema, no rash. [] Back: No tenderness, no CVA tenderness. [] Extremities: ROM intact, no edema. [] Neurologic: Alert and oriented X 3, normal motor function, normal sensory function, no focal deficits noted. [] Psychologic: Affect normal, judgement normal, mood normal. [] Current Patient Data Vital Signs Vital Signs Date Time Temp Pulse Resp B/P (MAP) Pulse Ox O2 Delivery O2 Flow Rate FiO2 09/21/16 19:02 114 181/119 (139) 96 Room Air 09/21/16 17:41 98.0 24 98.0 Lab Values Laboratory Tests Test 09/21/16 18:20 Urine Collection Type Unknown Urine Color Yellow Urine Clarity Clear Urine pH 5.0 Urine Specific [place] 1.015 Urine Protein >=300 mg/dL (NEG-TRACE) Urine Glucose (UA) Negative mg/dL (NEG) Urine Ketones (Stick) Negative mg/dL (NEG) Urine Blood Trace (NEG) Urine Nitrite Negative (NEG) Urine Bilirubin Negative (NEG) Urine Urobilinogen Dipstick 0.2 mg/dL (0.2 mg/dL) Urine Leukocyte Esterase Trace (NEG) Urine RBC 3-5 /HPF (0-2) Urine WBC 5-10 /HPF (0-4) Urine Squamous Epithelial Cells Few /LPF Urine Bacteria Few /HPF (0-FEW) Urine Hyaline Casts Few /HPF Urine Granular Casts Occasional /HPF EKG EKG EKG as interpreted by me as normal sinus rhythm, rate 109, no ST-T changes, normal intervals, no ectopy Radiology/Procedures Radiology/Procedures Chest xray as interpreted by me with no acute cardiopulmonary disease process Course & Med Decision Making Course & Med Decision Making Pertinent Labs and Imaging studies reviewed. (See chart for details) Workup is unremarkable. Given prescription for antibiotics so he can get this filled today for COPD exacerbation; he otherwise states he has his other medications. Return precautions given. He and daughter understand and agree with plan. Dragon Disclaimer Dragon Disclaimer This electronic medical record was generated, in whole or in part, using a voice recognition dictation system. Departure Departure Impression: Primary Impression: COPD exacerbation Disposition: 01 HOME, SELF-CARE Condition: STABLE Referrals: ELO OLIVER APRN (PCP) Patient Instructions: Chronic Obstructive Pulmonary Disease Exacerbation, Easy- to-Read Additional Instructions: Take levofloxacin for COPD exacerbation. Follow-up with your primary care doctor. Return for any concerns. Scripts Levofloxacin (LEVOFLOXACIN) 750 Mg Tablet 1 TAB PO DAILY, #7 TAB Prov: Erickson LITTLE MD 09/21/16 Erickson LITTLE MD September 21, 2016 19:17
--- NOTE | 2016-09-22 06:29 | EKG ---
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
--- NOTE | 2016-09-22 09:08 | RAD ---
Indication cough. Difficulty breathing. Shortness of air. A single view of the chest was obtained and is compared to an exam 07/22/2016. Note is made of a CT examination of the chest 07/30/2016. Heart size is slightly enlarged but unchanged. There is no gross congestive heart failure. A focal process in the left lung is not seen. Blunting at the right costophrenic angle probably chronic and reflecting scar is noted similar to the previous exam. There is no pneumothorax. IMPRESSION: Chronic changes in the right hemithorax. No definite acute finding seen in the chest
== END 2016-09-21 19:47 | disposition home or self-care (01) ==
LOC: ER 17:23
DX: J44.1 Chronic obstructive pulmonary disease with (acute) exacerbation (principal); R30.0 Dysuria; E11.9 Type 2 diabetes mellitus without complications; E78.00 Pure hypercholesterolemia, unspecified; I25.2 Old myocardial infarction; I10 Essential (primary) hypertension; Z88.8 Allergy status to other drugs, medicaments and biological substances; Z91.041 Radiographic dye allergy status
CPT/HCPCS: 71010; 81001; 87086; 93005; 99285-25

== ENCOUNTER 2016-09-22 10:24 | Inpatient (IN) | payer MEDICARE ==
[2016-09-22] VITALS (9 sets, daily range): BP systolic 134–183; BP diastolic 77–118
[~2016-09-22] VITALS: Ht 188 cm; Wt 94.9 kg
[~2016-09-22 10:24] MED LIST changes: -GUAI600T38 PO; +GUAI600T47 PO; -LEVO500T38 PO; +LEVO500T59 PO; +LEVO750T5 PO; +NITR0.4T22 SL; -NITR0.4T6 SL; -NPH,100V4 SQ; +NPH,100V5 SQ
[2016-09-22] MEDS ORDERED: DEXTROSE 50% 25 GM / 50ML DISP.SYRIN. IV ONE ×5 (10:39→13:15)
--- NOTE | 2016-09-22 10:46 | PHYS DOC ---
Past Medical History Past Medical History: COPD, Diabetes-Type II, High Cholesterol, Hypertension, [place], Prostatitis Past Surgical History: Other Additional Past Surgical Histo: lung surgery? Alcohol Use: None Drug Use: None Adult General HPI HPI Patient is a 76 year old -[place] male who presents with hypoglycemia. He also complains of right-sided intermittent chest pain. He denies any nausea vomiting and denies that the pain radiates or moves around. According to his daughter in law he was seen and evaluated yesterday and sent home. He also had an episode recently of last week where his sugar was severely low in EMS gave him IVs and he stated home. According to his [id number] he passed out this morning after he got up around 5 AM and gave himself insulin. Review of Systems Review of Systems Constitutional: Denies fever or chills [] Eyes: Denies change in visual acuity, redness, or eye pain [] HENT: Denies nasal congestion or sore throat [] Respiratory: Denies cough or shortness of breath [] Cardiovascular: No additional information not addressed in HPI [] GI: Denies abdominal pain, nausea, vomiting, bloody stools or diarrhea [] : Denies dysuria or hematuria [] Musculoskeletal: Denies back pain or joint pain [] Integument: Denies rash or skin lesions [] Neurologic: Denies headache, focal weakness or sensory changes [] Endocrine: Denies polyuria or polydipsia [] Current Medications Current Medications Current Medications Medications (Trade) Dose Ordered Sig/Ann Marie Start Time Stop Time Status Last Admin Dose Admin Dextrose (Dextrose 50%-Water Syringe) 25 gm STK-MED ONCE 09/22/16 10:39 09/22/16 10:40 DC Allergies Allergies Allergies Coded Allergies Type Severity Reaction Last Updated Verified lisinopril Allergy Severe Anaphylaxis 08/03/16 Yes I S O L A T I O N *CONTACT* Allergy Unknown 08/03/16 Yes Physical Exam Physical Exam Constitutional: Well developed, well nourished, no acute distress, non-toxic appearance. [] HENT: Normocephalic, atraumatic, bilateral external ears normal, oropharynx moist, no oral exudates, nose normal. [] Eyes: PERRLA, EOMI, conjunctiva normal, no discharge. [] Neck: Normal range of motion, no tenderness, supple, no stridor. [] Cardiovascular:Heart rate regular rhythm, no murmur [] Lungs & Thorax: Bilateral breath sounds decreased bilaterally Abdomen: Bowel sounds normal, soft, no tenderness, no masses, no pulsatile masses. [] Skin: Warm, dry, no erythema, no rash. [] Back: No tenderness, no CVA tenderness. [] Extremities: No tenderness, no cyanosis, no clubbing, ROM intact, no edema. [] Neurologic: Alert and oriented X 2, normal motor function, normal sensory function, no focal deficits noted. [] Psychologic: Affect normal, judgement normal, mood normal. [] Current Patient Data Vital Signs Vital Signs Date Time Temp Pulse Resp B/P (MAP) Pulse Ox O2 Delivery O2 Flow Rate FiO2 09/22/16 11:04 100 24 184/114 (137) 92 09/22/16 10:47 Room Air 09/22/16 10:30 97.6 97.6 Lab Values Laboratory Tests Test 09/22/16 10:34 09/22/16 10:45 09/22/16 11:29 Glucose (Fingerstick) 33 mg/dL (70-99) *L 46 mg/dL (70-99) *L White Blood Count 9.9 x10^3/uL (4.0-11.0) Red Blood Count 2.76 x10^6/uL (4.30-5.70) L Hemoglobin 8.0 g/dL (13.0-17.5) L Hematocrit 24.2 % (39.0-53.0) L Mean Corpuscular Volume 88 fL (79-100) Mean Corpuscular Hemoglobin 29 pg (25-35) Mean Corpuscular Hemoglobin Concent 33 g/dL (31-37) Red Cell Distribution Width 17.1 % (11.5-14.5) H Platelet Count 435 x10^3/uL (140-400) H Neutrophils (%) (Auto) 70 % (31-73) Lymphocytes (%) (Auto) 17 % (24-48) L Monocytes (%) (Auto) 12 % (0-9) H Eosinophils (%) (Auto) 1 % (0-3) Basophils (%) (Auto) 1 % (0-3) Neutrophils # (Auto) 6.9 x10^3uL (1.8-7.7) Lymphocytes # (Auto) 1.7 x10^3/uL (1.0-4.8) Monocytes # (Auto) 1.1 x10^3/uL (0.0-1.1) Eosinophils # (Auto) 0.1 x10^3/uL (0.0-0.7) Basophils # (Auto) 0.1 x10^3/uL (0.0-0.2) Reticulocyte Count (auto) 1.9 % (0.5-2.5) Prothrombin Time 14.9 SEC (11.7-14.0) H Prothrombin Time INR 1.2 (0.8-1.1) H Sodium Level 137 mmol/L (136-145) Potassium Level 3.8 mmol/L (3.5-5.1) Chloride Level 100 mmol/L (98-107) Carbon Dioxide Level 23 mmol/L (21-32) Anion Gap 14 (6-14) Blood Urea Nitrogen 46 mg/dL (8-26) H Creatinine 2.7 mg/dL (0.7-1.3) H Estimated GFR (Cockcroft-Gault) 28.1 Glucose Level 18 mg/dL (70-99) *L Calcium Level 8.6 mg/dL (8.5-10.1) Magnesium Level 2.3 mg/dL (1.8-2.4) Iron Level 43 ug/dL (65-175) L Total Iron Binding Capacity 294 ug/dL (250-450) Iron Saturation 15 % (15-34) Ferritin 1547 ng/mL (26-388) H Total Bilirubin 0.3 mg/dL (0.2-1.0) Direct Bilirubin 0.2 mg/dL (0.0-0.2) Aspartate Amino Transferase (AST) 21 U/L (15-37) Alanine Aminotransferase (ALT) 22 U/L (16-63) Alkaline Phosphatase 92 U/L (46-116) Creatine Kinase 62 U/L (39-308) Creatine Kinase MB (Mass) 1.1 ng/mL (0.0-3.6) Creatine Kinase MB Relative Index 1.8 % (0-4) Troponin I Quantitative 0.132 ng/mL (0.000-0.055) JN-Nra-Y-Type Natriuretic Peptide > 81925 pg/mL (0-124) H Total Protein 6.9 g/dL (6.4-8.2) Albumin 2.5 g/dL (3.4-5.0) L Lipase 61 U/L (73-393) L Thyroid Stimulating Hormone (TSH) 2.045 uIU/mL (0.358-3.74) Laboratory Tests 09/22/16 10:45 Laboratory Tests 09/22/16 10:45 EKG EKG EKG shows sinus tachycardia with a rate of [address] elevations, T- wave inversion noted in leads V1 and V2, V3, normal axis, QTC 511 ms, as interpreted by me. Radiology/Procedures Radiology/Procedures [facility] [address] [place] [address] IMAGING REPORT Signed PATIENT: BRONSON TAI ACCOUNT: [id number] : 1940 LOCATION: ER AGE: 76 SEX: M EXAM STATUS: REG ER ORD. PHYSICIAN: GENEVA BOSS MD REASON: hypoglycmeia PROCEDURE: PORTABLE CHEST 1V Indication difficulty breathing. Hyperglycemia. A single view of the chest was obtained and is compared to an exam yesterday. Pulmonary infiltrates persist and appear worse. Findings may reflect atypical congestive heart failure or pneumonia. Pulmonary infiltrates are most pronounced in the lower lung gamez. Additional chronic changes at the right lung base are noted. Heart size is unchanged. IMPRESSION: Worsening pulmonary infiltrates. Findings likely reflect pneumonia. Somewhat atypical congestive heart failure would be an additional consideration. DICTATED and SIGNED BY: KIAH ADAMS MD DATE: 09/22/16909 CC: GENEVA BOSS MD; ELO OLIVER APRN ~ Impressions: Hypoglycemia Chest pain Elevated troponin Diabetes Course & Med Decision Making Course & Med Decision Making Pertinent Labs and Imaging studies reviewed. (See chart for details) She presented with hypoglycemia requiring multiple amps of D50. He was started on D10 at 30 an hour and is being titrated up to keep her sugars and appropriate range. Troponin is elevated and have asked cardiology to evaluate the patient. He does have acute renal failure so he was given 500 mL in the ambulance I will give another 500 mL. His chest x-ray shows possible pneumonia we'll start antibiotics at this time. I suspect his hypoglycemia secondary to his renal failure was his renal failure improves he will clear his insulin out, and his hypoglycemia resolved. Patient's in stable but critical condition going to the ICU. Spoke with Dr. puentes regarding admission and interim orders have been written. Critical care time: 60 minutes of critical care time was used on this patient excluding procedures. Dragon Disclaimer Dragon Disclaimer This electronic medical record was generated, in whole or in part, using a voice recognition dictation system. Departure Departure Impression: Primary Impression: Hypoglycemia Disposition: ADMITTED INPATIENT Admitting Physician: Sana Puentes Condition: STABLE Referrals: ELO OLIVER APRN (PCP) GENEVA BOSS MD September 22, 2016 10:46
[2016-09-22 11:04] LABS: BASO # 0.1 x10^3/uL (0.0-0.2); BASO % 1 % (0-3); EOS % 1 % (0-3); HEMATOCRIT 24.2 % (39.0-53.0); LYMPH # 1.7 x10^3/uL (1.0-4.8); LYMPH % 17 % (24-48); MEAN CORPUSCULAR HEMOGLOBIN 29 pg (25-35); MEAN CORPUSCULAR HGB CONC 33 g/dL (31-37); MEAN CORPUSCULAR VOLUME 88 fL (79-100); MONO % 12 % (0-9); NEUT % 70 % (31-73); PLATELET COUNT 435 x10^3/uL (140-400); RED BLOOD COUNT 2.76 x10^6/uL (4.30-5.70); RED CELL DISTRIBUTION WIDTH 17.1 % (11.5-14.5); WHITE BLOOD COUNT 9.9 x10^3/uL (4.0-11.0)
--- NOTE | 2016-09-22 11:14 | RAD ---
Indication difficulty breathing. Hyperglycemia. A single view of the chest was obtained and is compared to an exam yesterday. Pulmonary infiltrates persist and appear worse. Findings may reflect atypical congestive heart failure or pneumonia. Pulmonary infiltrates are most pronounced in the lower lung gamez. Additional chronic changes at the right lung base are noted. Heart size is unchanged. IMPRESSION: Worsening pulmonary infiltrates. Findings likely reflect pneumonia. Somewhat atypical congestive heart failure would be an additional consideration.
[2016-09-22 11:17] LABS: INR 1.2 (0.8-1.1); PROTHROMBIN TIME PATIENT 14.9 SEC (11.7-14.0)
[2016-09-22 11:28] LABS: DIRECT BILIRUBIN 0.2 mg/dL (0.0-0.2); MAGNESIUM 2.3 mg/dL (1.8-2.4)
[2016-09-22 11:29] LABS: CKMB MASS 1.1 ng/mL (0.0-3.6); CREATINE KINASE 62 U/L (39-308)
--- NOTE | 2016-09-22 11:37 | EKG ---
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
[2016-09-22] MEDS ORDERED: IV DEXTROSE 10% 500 ML IV ONE (11:45)
[2016-09-22 12:02] LABS: ALBUMIN 2.5 g/dL (3.4-5.0); CALCIUM 8.6 mg/dL (8.5-10.1); CREATININE 2.7 mg/dL (0.7-1.3); GFR 28.1; POTASSIUM 3.8 mmol/L (3.5-5.1); TOTAL BILIRUBIN 0.3 mg/dL (0.2-1.0); TOTAL PROTEIN 6.9 g/dL (6.4-8.2)
[2016-09-22] MEDS: NITROGLYCERIN SUBLINGUAL 0.4 MG BOTTLE OF 25. SL PRN ×3 (12:09→12:28)
[2016-09-22] MEDS ORDERED: ONDANSETRON PF 4 MG/2 ML VIAL. IV PRN (12:30)
--- NOTE | 2016-09-22 12:43 | PDOC2 ---
CARDIAC CONSULT DATE OF CONSULT Date of Consult DATE: 09/22/16 TIME: 12:21 REASON FOR CONSULT Reason for Consult: Elevated troponin REFERRING PHYSICIAN Referring Physician: Herbert SOURCE Source: Caregiver (daughter), Chart review, Patient HISTORY OF PRESENT ILLNESS HISTORY OF PRESENT ILLNESS This is a 76 yo male admitted for complains of passing out. Pt is currently feeling exhausted and weak thus limited answers to my questions. Slight SOA with slight abdominal pain and also mild intermittent sharp chest pain preceding his admission. Currently denies any chest pain. Per daughter this weekend EMS was notified since he was feeling dizzy and may have passed out. He was shaking but no incontinent episodes. EMS was called and his BG was noted at 12. He said he does take DM pill and also sliding scale insulin. He was given IV medications in which afterwards he felt better and did not go to the hospital. Daughter could not tell me why but yesterday he was in ED and was given antibiotics due to pneumonia and was dismissed. Today at 0500 he felt flushed. He ate breakfast and did not take any insulin regimen. Around 0930 he was noted to have passed out after initially complaining of lightheadedness then shaking. EMS came again and was noted with low BG. In ED he was noted with BG at 18. Currently he is responsive, cooperative but weak. Verbalized no blood in stool or pink tinge urine and continues to take his xarelto for very recent PE/DVT. Consult is for elevated troponin and recently had [facility] which noted with no significant disease. 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) Pulmonary: COPD, Pulmonary embolus (extensive), Other (severe pulmonary HTN) GI: Other (dysphagia) Heme/Onc: Anemia NOS, Other (RLE DVT) Hepatobiliary: No pertinent hx Psych: No pertinent hx Musculoskeletal: Osteoarthritis Rheumatologic: No pertinent hx Infectious disease: Other (MRSA) ENT: No pertinent hx Renal/: Chronic renal insuff Endocrine: Diabetes (2) Dermatology: Other (right foot eschars) PAST SURGICAL HISTORY Past Surgical History: Other ([facility] 07/19/2016) FAMILY HISTORY Family History noncontributory SOCIAL HISTORY Smoke: <1 pack per day ALCOHOL: none Drugs: None Lives: with Family CURRENT MEDICATIONS CURRENT MEDICATIONS Current Medications Medications (Trade) Dose Ordered Sig/Ann Marie Route PRN Reason Start Time Stop Time Status Last Admin Dose Admin Dextrose 500 ml @ 30 mls/hr 1X ONCE IV 09/22/16 11:45 09/23/16 04:24 09/22/16 11:52 Nitroglycerin (Nitrostat) 0.4 mg PRN Q5MIN PRN SL CHEST PAIN 09/22/16 12:00 09/22/16 12:17 ALLERGIES ALLERGIES: Coded Allergies: lisinopril (Verified Allergy, Severe, Anaphylaxis, 08/03/16) Emergent Intubation 07/12/16. I S O L A T I O N *CONTACT* (Verified Allergy, Unknown, 08/03/16) mrsa ROS Review of System Limited due to drowsiness, see HPI PHYSICAL EXAM General: Oriented X3, Cooperative, mild distress HEENT: Atraumatic, Mucous membr. moist/pink Lungs: Other (basilar crackles) Heart: Regular rate (Sinus tach), Normal S1, Normal S2, Other (3/6 systolic murmur to LLS border) Abdomen: Soft, No tenderness Extremities: No cyanosis, Other (2+ bilateral LE pitting edema) Skin: Other (right foot eschars per staff, wrapped with dressing) Neuro: Normal speech, Sensation intact Psych/Mental Status: Other (drowsy) MUSCULOSKELETAL: Osteoarthritic changes both hands VITALS VITALS Vital Signs Date Time Temp Pulse Resp B/P (MAP) Pulse Ox O2 Delivery O2 Flow Rate FiO2 09/22/16 12:17 102 171/92 09/22/16 10:30 97.6 20 86 Room Air 97.6 LABS Lab: Laboratory Tests Test 09/22/16 10:34 09/22/16 10:45 09/22/16 11:29 09/22/16 12:14 Glucose (Fingerstick) 33 mg/dL (70-99) 46 mg/dL (70-99) 37 mg/dL (70-99) White Blood Count 9.9 x10^3/uL (4.0-11.0) Red Blood Count 2.76 x10^6/uL (4.30-5.70) Hemoglobin 8.0 g/dL (13.0-17.5) Hematocrit 24.2 % (39.0-53.0) Mean Corpuscular Volume 88 fL (79-100) Mean Corpuscular Hemoglobin 29 pg (25-35) Mean Corpuscular Hemoglobin Concent 33 g/dL (31-37) Red Cell Distribution Width 17.1 % (11.5-14.5) Platelet Count 435 x10^3/uL (140-400) Neutrophils (%) (Auto) 70 % (31-73) Lymphocytes (%) (Auto) 17 % (24-48) Monocytes (%) (Auto) 12 % (0-9) Eosinophils (%) (Auto) 1 % (0-3) Basophils (%) (Auto) 1 % (0-3) Neutrophils # (Auto) 6.9 x10^3uL (1.8-7.7) Lymphocytes # (Auto) 1.7 x10^3/uL (1.0-4.8) Monocytes # (Auto) 1.1 x10^3/uL (0.0-1.1) Eosinophils # (Auto) 0.1 x10^3/uL (0.0-0.7) Basophils # (Auto) 0.1 x10^3/uL (0.0-0.2) Prothrombin Time 14.9 SEC (11.7-14.0) Prothromb Time International Ratio 1.2 (0.8-1.1) Sodium Level 137 mmol/L (136-145) Potassium Level 3.8 mmol/L (3.5-5.1) Chloride Level 100 mmol/L (98-107) Carbon Dioxide Level 23 mmol/L (21-32) Anion Gap 14 (6-14) Blood Urea Nitrogen 46 mg/dL (8-26) Creatinine 2.7 mg/dL (0.7-1.3) Estimated GFR (Cockcroft-Gault) 28.1 Glucose Level 18 mg/dL (70-99) Calcium Level 8.6 mg/dL (8.5-10.1) Magnesium Level 2.3 mg/dL (1.8-2.4) Total Bilirubin 0.3 mg/dL (0.2-1.0) Direct Bilirubin 0.2 mg/dL (0.0-0.2) Aspartate Amino Transf (AST/SGOT) 21 U/L (15-37) Alanine Aminotransferase (ALT/SGPT) 22 U/L (16-63) Alkaline Phosphatase 92 U/L (46-116) Creatine Kinase 62 U/L (39-308) Creatine Kinase MB (Mass) 1.1 ng/mL (0.0-3.6) Creatine Kinase MB Relative Index 1.8 % (0-4) Troponin I Quantitative 0.132 ng/mL (0.000-0.055) IL-Hdh-R-Type Natriuretic Peptide > 22336 pg/mL (0-124) Total Protein 6.9 g/dL (6.4-8.2) Albumin 2.5 g/dL (3.4-5.0) Lipase 61 U/L (73-393) Thyroid Stimulating Hormone (TSH) 2.045 uIU/mL (0.358-3.74) ECHOCARDIOGRAM ECHOCARDIOGRAM <Conclusion> The left ventricular systolic function is normal. The Ejection Fraction is 70%. There is normal LV segmental wall motion. Transmitral Doppler flow pattern appears to be Grade I-abnormal relaxation pattern. Moderate tricuspid regurgitation. The pulmonary artery systolic pressure is estimated at 70 mmHg. There is severe pulmonary hypertension. There is no evidence of significant pericardial effusion. DATE: 07/14/16 1519 HEART CATH HEART CATH CORONARY ANGIOGRAPHY: LM is a large caliber vessel with normal angiographic appearance. LAD is a large caliber vessel with mild luminal irregularities. D1 is a moderate caliber vessel with normal angiographic apeparance. LCx is a moderate caliber non-dominant vessel with mild luminal irregularities. OM1 is a moderate caliber vessel with normal angiographic appearance. RCA is a large caliber dominant vessel with normal angiographic appearance. RPDA and RPL are moderate caliber vessels with normal angiographic appearance. Conclusion No significant obstructive coronary disease. Normal LV systolic function. Recommendations Aggressive Medical Therapy DATE: 07/15/16 1400 ASSESSMENT/PLAN ASSESSMENT/PLAN 1. Atypical CP with elevated troponin: Suspect pleuritic. Initial at 0.132, EKG sinus tach with no acute changes, Type 2, contributing factors below.Doubt ACS. Prior LHC with no significant CAD as noted per above report. 2. Syncope with possible seizure episodes: likely related to hypoglycemic reaction 3. Accelerated HTN: initial reading at 199/115 4. Anemia: Hgb at 8.0, prior admission with blood transfusion, on xarelto. Defer to PCP 5. BASIM on CKD: Cr at 2.7 6. AECOPD with severe pulmonary HTN with possible pneumonia: recently started on levaquin 7. Probable Acute on chronic diastolic CHF: with above contributing factors 8. DM2 with hypoglycemic reaction, BG lowest at 18. On home insulin therapy and PO meds. Currently with difficult control on low BG. 9. Recent extensive PE, DVT and treated with tPA at that time: 06/2016 was placed on xarelto 10. Hx of cardiopulmonary arrest: PEA related, likely from recent PE 11. Hx of PAD/small bilateral common iliac aneurysm: no notable claudication symptoms. 12. HLP Recommendations 1. Cardiac workup current, no further cardiac diagnostics. 2. Maintain hydration and BG control 3. Follow nephrology recommendation 4. Consult pulmonary and neurology if ok with PCP. 5. No ACEi, angioedema in the past. 6. Restart home Imdur and cardizem. Labetolol IV PRN 7. Supportive care Problems: SHIVA JEREZ SHIPPER RECEIVER September 22, 2016 12:43
[2016-09-22] MEDS ORDERED: levOFLOXacin PER PHARMACY. MC PRN (12:45)
[2016-09-22] MEDS ORDERED: IV NORMAL SALINE 1000ML BAG 500 ML IV ONE (13:15)
[2016-09-22 13:37] LABS: BILIRUBIN,URINE NEGATIVE (NEG); GLUCOSE,URINE NEGATIVE (NEG); NITRITE,URINE NEGATIVE (NEG); PROTEIN,URINE >=300 mg/dL (NEG-TRACE)
[2016-09-22 13:47] LABS: BACTERIA,URINE 0 /HPF (0-FEW); SQUAMOUS EPITHELIAL CELL,UR MOD /LPF
[2016-09-22] MEDS ORDERED: DEXTROSE 50% 25 GM / 50ML DISP.SYRIN. IV PRN (14:00)
[2016-09-22] MEDS: ISOSORBIDE MONONITRATE ER 30 MG TAB.ER.24H PO SCH (14:41)
[2016-09-22] MEDS ORDERED: IPRATRPIUM/ALBUTEROL 0.5/2.5MG 3 ML NEBU. ONE (15:06)
--- NOTE | 2016-09-22 15:15 | PDOC1 ---
History and Physical Date of Admission Date of Admission DATE: 09/22/16 TIME: 15:13 Identification/Chief Complaint Chief Complaint confusion Problems: Source Source: Chart review, Patient History of Present Illness History of Present Illness Mr. 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 He reports now taking his insulin as directed this AM, but has been confused since, family reports he looked well yesterday BS did not respond to D50, D10 started in ER, and now rate increased to 100 Pt reports he feels well, some lethargy and left sided chest pain that he now reports is improved He denies any nausea vomiting and denies that the pain radiates or moves around. 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) Pulmonary: COPD, Pulmonary embolus (extensive), Other (severe pulmonary HTN) GI: Other (dysphagia) Heme/Onc: Anemia NOS, Other (RLE DVT) Hepatobiliary: No pertinent hx Psych: No pertinent hx Musculoskeletal: Osteoarthritis Rheumatologic: No pertinent hx Infectious disease: Other (MRSA) ENT: No pertinent hx Renal/: Chronic renal insuff Endocrine: Diabetes (2) Dermatology: Other (right foot eschars) Past Surgical History Past Surgical History: Other ([facility] 07/19/2016) Family History Family History: No Significant, Hypertension Social History Smoke: No ALCOHOL: none Drugs: None Current Problem List Problem List Problems Medical Problems: (1) Hypoglycemia Status: Acute Problems: Current Medications Current Medications Current Medications Dextrose (Dextrose 50%-Water Syringe) 25 gm STK-MED ONCE IV ; Start 09/22/16 at 10:39; Stop 09/22/16 at 10:40; Status DC Dextrose 500 ml @ 30 mls/hr 1X ONCE IV Last administered on 09/22/16 11:52; Start 09/22/16 at 11:45; Stop 09/23/16 at 04:24 Dextrose (Dextrose 50%-Water Syringe) 25 gm STK-MED ONCE IV ; Start 09/22/16 at 11:45; Stop 09/22/16 at 11:46; Status DC Dextrose (Dextrose 50%-Water Syringe) 25 gm 1X ONCE IV Last administered on 10:45; Start 09/22/16 at 12:00; Stop 09/22/16 at 12:01; Status DC Dextrose (Dextrose 50%-Water Syringe) 25 gm 1X ONCE IV Last administered on 11:40; Start 09/22/16 at 12:00; Stop 09/22/16 at 12:01; Status DC Nitroglycerin (Nitrostat) 0.4 mg PRN Q5MIN PRN SL CHEST PAIN Last administered on 09/22/16 12:28; Start 09/22/16 at 12:00 Ondansetron HCl (Zofran) 4 mg PRN Q8HRS PRN IV NAUSEA/VOMITING; Start 09/22/16 at 12:30; Stop 09/23/16 at 12:29 Levofloxacin/ Dextrose (Levaquin Per Pharmacy) 1 each PRN DAILY PRN MC SEE COMMENTS; Start 09/22/16 at 12:45 Levofloxacin/ Dextrose 150 ml @ 100 mls/hr Q48H IV Last administered on 13:10; Start 09/22/16 at 13:00 Sodium Chloride 500 ml @ 1,000 mls/hr 1X ONCE IV Last administered on 13:10; Start 09/22/16 at 13:15; Stop 09/22/16 at 13:44; Status DC Dextrose (Dextrose 50%-Water Syringe) 25 gm 1X ONCE IV Last administered on 13:11; Start 09/22/16 at 13:15; Stop 09/22/16 at 13:16; Status DC Insulin Aspart (NovoLOG) 0-5 UNITS TIDWMEALS SQ ; Start 09/22/16 at 17:00 Dextrose (Dextrose 50%-Water Syringe) 12.5 gm PRN Q15MIN PRN IV SEE COMMENTS Last administered on 09/22/16 13:58; Start 09/22/16 at 14:00 Labetalol HCl (Normodyne) 20 mg PRN Q2HR PRN IVP HYPERTENSION, SEE COMMENTS; Start 09/22/16 at 14:15 Amlodipine Besylate (Norvasc) 10 mg DAILY PO ; Start 09/23/16 at 09:00; Status UNV Atorvastatin Calcium (Lipitor) 40 mg HS PO ; Start 09/22/16 at 21:00 Diltiazem HCl (Cardizem 24hr Cd) 240 mg DAILY PO Last administered on 14:41; Start 09/22/16 at 15:00 Isosorbide Mononitrate (Imdur) 120 mg DAILY PO Last administered on 09/22/16 14:41; Start 09/22/16 at 15:00 Albuterol/ Ipratropium (Duoneb) 3 ml STK-MED ONCE .ROUTE ; Start 09/22/16 at 15: 06; Stop 09/22/16 at 15:07; Status DC Active Scripts Active Levofloxacin 750 Mg Tablet 1 Tab PO DAILY Levemir Flextouch (Insulin Detemir) 100 Unit/1 Ml Insuln.pen 20 Units SQ QHS 30 Days Novolog Flexpen (Insulin Aspart) 100 Unit/1 Ml Insuln.pen 10 Units SQ TIDAC 30 Days Reported Percocet 5-325 Mg Tablet (Oxycodone/Acetaminophen) 1 Each Tablet 1 Tab PO PRN Q6HRS PRN Advair 100-50 Diskus (Fluticasone/Salmeterol) 1 Each Disk.w.dev 1 Puff IH BID Spiriva Respimat (Tiotropium [place]) 4 Gm Mist.inhal 2.5 Gm IH DAILY Symbicort 160-4.5 Mcg Inhaler (Budesonide/Formoterol Fumarate) 10.2 Gm Hfa.aer.ad 2 Puff IH BID Atorvastatin Calcium 20 Mg Tablet 20 Mg PO HS Lisinopril-Hctz 10-12.5 Mg Tab (Lisinopril/Hydrochlorothiazide) 1 Each Tablet 1 Tab PO DAILY Isosorbide Mononitrate Er (Isosorbide Mononitrate) 120 Mg Tab.er.24h 120 Mg PO DAILY Novolin N (Nph, Human Insulin Isophane) 100 Unit/1 Ml Vial 0 SQ Promethazine-Codeine Syrup (Promethazine Hcl/Codeine) 118 Ml Syrup 5 Ml PO Q4- 6HRS Diltiazem 24HR Cd (Diltiazem Hcl) 240 Mg Cap.er.24h 240 Mg PO DAILY NITROGLYCERIN SubLingual (Nitroglycerin) 0.4 Mg Tab.subl 0.4 Mg SL PRN Q5MIN PRN Atorvastatin Calcium 40 Mg Tablet 40 Mg PO HS Allergies Allergies: Coded Allergies: lisinopril (Verified Allergy, Severe, Anaphylaxis, 08/03/16) Emergent Intubation 07/12/16. I S O L A T I O N *CONTACT* (Verified Allergy, Unknown, 08/03/16) mrsa ROS General: YES: Fatigue, Malaise, No: Chills, Night Sweats, Appetite, Other PSYCHOLOGICAL ROS: No: Anxiety, Behavioral Disorder, Concentration difficultie , Decreased libido, Depression, Disorientation, Hallucinations, Hostility, Irritablity, Memory difficulties, Mood Swings, Obsessive thoughts, Physical abuse, Sexual abuse, Sleep disturbances, Suicidal ideation, Other Eyes: No Blurry vision, No Decreased vision, No Double vision, No Dry eyes, No Excessive tearing, No Eye Pain, No Itchy Eyes, No Loss of vision, No Photophobia , No Scotomata, No Uses contacts, No Uses glasses, No Other HEENT: No: Heacaches, Visual Changes, Hearing change, Nasal congestion, Nasal discharge, Oral lesions, Sinus pain, Sore Throat, Epistaxis, Sneezing, Snoring, Tinnitus, Vertigo, Vocal changes, Other Respiratory: No: Cough, Hemoptysis, Orthopnea, Pleuritic Pain, Shortness of breath, SOB with excertion, Sputum Changes, Stridor, Tachypnea, Wheezing, Other Cardiovascular: No Chest Pain, No Palpitations, No Orthopnea, No Paroxysmal Noc. Dyspnea, No Edema, No Lt Headedness, No Other Gastrointestinal: No Nausea, No Vomiting, No Abdominal Pain, No Diarrhea, No Constipation, No Melena, No Hematochezia, No Other Genitourinary: No Dysuria, No Frequency, No Incontinence, No Hematuria, No Retention, No Discharge, No Urgency, No Pain, No Flank Pain, No Other, No , No , No , No , No , No , No Musculoskeletal: Yes Joint Stiffness, No Gait Disturbance, No Joint Pain, No Joint Swelling, No Muscle Pain, No Muscular Weakness, No Pain In:, No Swelling In:, No Other Neurological: No Behavorial Changes, No Bowel/Bladder ControlChng, No Confusion , No Dizziness, No Gait Disturbance, No Headaches, No Impaired Coord/balance, No Memory Loss, No Numbness/Tingling, No Seizures, No Speech Problems, No Tremors, No Visual Changes, No Weakness, No Other Skin: No Dry Skin, No Eczema, No Hair Changes, No Lumps, No Mole Changes, No Mottling, No Nail Changes, No Pruritus, No Rash, No Skin Lesion Changes, No Other, No Acne Physical Exam General: Alert, Oriented X3, Cooperative, mild distress HEENT: EOMI, Mucous membr. moist/pink Lungs: Normal air movement Rectal Exam: deferred Extremities: No clubbing, No edema, Normal pulses Skin: No rashes Neuro: Normal speech, Sensation intact Psych/Mental Status: Mood NL Vitals Vitals Vital Signs Date Time Temp Pulse Resp B/P (MAP) Pulse Ox O2 Delivery O2 Flow Rate FiO2 09/22/16 14:46 100 20 183/118 (139) 96 Nasal Cannula 4.0 09/22/16 10:30 97.6 97.6 Labs Labs Laboratory Tests Test 09/22/16 10:34 09/22/16 10:45 09/22/16 11:29 09/22/16 12:14 Glucose (Fingerstick) 33 mg/dL (70-99) 46 mg/dL (70-99) 37 mg/dL (70-99) White Blood Count 9.9 x10^3/uL (4.0-11.0) Red Blood Count 2.76 x10^6/uL (4.30-5.70) Hemoglobin 8.0 g/dL (13.0-17.5) Hematocrit 24.2 % (39.0-53.0) Mean Corpuscular Volume 88 fL (79-100) Mean Corpuscular Hemoglobin 29 pg (25-35) Mean Corpuscular Hemoglobin Concent 33 g/dL (31-37) Red Cell Distribution Width 17.1 % (11.5-14.5) Platelet Count 435 x10^3/uL (140-400) Neutrophils (%) (Auto) 70 % (31-73) Lymphocytes (%) (Auto) 17 % (24-48) Monocytes (%) (Auto) 12 % (0-9) Eosinophils (%) (Auto) 1 % (0-3) Basophils (%) (Auto) 1 % (0-3) Neutrophils # (Auto) 6.9 x10^3uL (1.8-7.7) Lymphocytes # (Auto) 1.7 x10^3/uL (1.0-4.8) Monocytes # (Auto) 1.1 x10^3/uL (0.0-1.1) Eosinophils # (Auto) 0.1 x10^3/uL (0.0-0.7) Basophils # (Auto) 0.1 x10^3/uL (0.0-0.2) Prothrombin Time 14.9 SEC (11.7-14.0) Prothromb Time International Ratio 1.2 (0.8-1.1) Sodium Level 137 mmol/L (136-145) Potassium Level 3.8 mmol/L (3.5-5.1) Chloride Level 100 mmol/L (98-107) Carbon Dioxide Level 23 mmol/L (21-32) Anion Gap 14 (6-14) Blood Urea Nitrogen 46 mg/dL (8-26) Creatinine 2.7 mg/dL (0.7-1.3) Estimated GFR (Cockcroft-Gault) 28.1 Glucose Level 18 mg/dL (70-99) Calcium Level 8.6 mg/dL (8.5-10.1) Magnesium Level 2.3 mg/dL (1.8-2.4) Total Bilirubin 0.3 mg/dL (0.2-1.0) Direct Bilirubin 0.2 mg/dL (0.0-0.2) Aspartate Amino Transf (AST/SGOT) 21 U/L (15-37) Alanine Aminotransferase (ALT/SGPT) 22 U/L (16-63) Alkaline Phosphatase 92 U/L (46-116) Creatine Kinase 62 U/L (39-308) Creatine Kinase MB (Mass) 1.1 ng/mL (0.0-3.6) Creatine Kinase MB Relative Index 1.8 % (0-4) Troponin I Quantitative 0.132 ng/mL (0.000-0.055) CM-Ozr-Z-Type Natriuretic Peptide > 66293 pg/mL (0-124) Total Protein 6.9 g/dL (6.4-8.2) Albumin 2.5 g/dL (3.4-5.0) Lipase 61 U/L (73-393) Thyroid Stimulating Hormone (TSH) 2.045 uIU/mL (0.358-3.74) Test 09/22/16 12:54 09/22/16 13:10 09/22/16 13:15 Glucose (Fingerstick) 39 mg/dL (70-99) Lactic Acid Level 2.0 mmol/L (0.4-2.0) Urine Collection Type Unknown Urine Color Yellow Urine Clarity Clear Urine pH 5.0 Urine Specific [place] 1.015 Urine Protein >=300 mg/dL (NEG-TRACE) Urine Glucose (UA) Negative mg/dL (NEG) Urine Ketones (Stick) Negative mg/dL (NEG) Urine Blood Trace (NEG) Urine Nitrite Negative (NEG) Urine Bilirubin Negative (NEG) Urine Urobilinogen Dipstick 1.0 mg/dL (0.2 mg/dL) Urine Leukocyte Esterase Negative (NEG) Urine RBC 6-10 /HPF (0-2) Urine WBC 1-4 /HPF (0-4) Urine Squamous Epithelial Cells Mod /LPF Urine Bacteria 0 /HPF (0-FEW) Urine Hyaline Casts Few /HPF Urine Mucus Mod /LPF Laboratory Tests Test 09/22/16 10:34 09/22/16 10:45 09/22/16 11:29 09/22/16 12:14 Glucose (Fingerstick) 33 mg/dL (70-99) 46 mg/dL (70-99) 37 mg/dL (70-99) White Blood Count 9.9 x10^3/uL (4.0-11.0) Red Blood Count 2.76 x10^6/uL (4.30-5.70) Hemoglobin 8.0 g/dL (13.0-17.5) Hematocrit 24.2 % (39.0-53.0) Mean Corpuscular Volume 88 fL (79-100) Mean Corpuscular Hemoglobin 29 pg (25-35) Mean Corpuscular Hemoglobin Concent 33 g/dL (31-37) Red Cell Distribution Width 17.1 % (11.5-14.5) Platelet Count 435 x10^3/uL (140-400) Neutrophils (%) (Auto) 70 % (31-73) Lymphocytes (%) (Auto) 17 % (24-48) Monocytes (%) (Auto) 12 % (0-9) Eosinophils (%) (Auto) 1 % (0-3) Basophils (%) (Auto) 1 % (0-3) Neutrophils # (Auto) 6.9 x10^3uL (1.8-7.7) Lymphocytes # (Auto) 1.7 x10^3/uL (1.0-4.8) Monocytes # (Auto) 1.1 x10^3/uL (0.0-1.1) Eosinophils # (Auto) 0.1 x10^3/uL (0.0-0.7) Basophils # (Auto) 0.1 x10^3/uL (0.0-0.2) Prothrombin Time 14.9 SEC (11.7-14.0) Prothromb Time International Ratio 1.2 (0.8-1.1) Sodium Level 137 mmol/L (136-145) Potassium Level 3.8 mmol/L (3.5-5.1) Chloride Level 100 mmol/L (98-107) Carbon Dioxide Level 23 mmol/L (21-32) Anion Gap 14 (6-14) Blood Urea Nitrogen 46 mg/dL (8-26) Creatinine 2.7 mg/dL (0.7-1.3) Estimated GFR (Cockcroft-Gault) 28.1 Glucose Level 18 mg/dL (70-99) Calcium Level 8.6 mg/dL (8.5-10.1) Magnesium Level 2.3 mg/dL (1.8-2.4) Total Bilirubin 0.3 mg/dL (0.2-1.0) Direct Bilirubin 0.2 mg/dL (0.0-0.2) Aspartate Amino Transf (AST/SGOT) 21 U/L (15-37) Alanine Aminotransferase (ALT/SGPT) 22 U/L (16-63) Alkaline Phosphatase 92 U/L (46-116) Creatine Kinase 62 U/L (39-308) Creatine Kinase MB (Mass) 1.1 ng/mL (0.0-3.6) Creatine Kinase MB Relative Index 1.8 % (0-4) Troponin I Quantitative 0.132 ng/mL (0.000-0.055) TC-Dud-I-Type Natriuretic Peptide > 60172 pg/mL (0-124) Total Protein 6.9 g/dL (6.4-8.2) Albumin 2.5 g/dL (3.4-5.0) Lipase 61 U/L (73-393) Thyroid Stimulating Hormone (TSH) 2.045 uIU/mL (0.358-3.74) Test 09/22/16 12:54 09/22/16 13:10 09/22/16 13:15 Glucose (Fingerstick) 39 mg/dL (70-99) Lactic Acid Level 2.0 mmol/L (0.4-2.0) Urine Collection Type Unknown Urine Color Yellow Urine Clarity Clear Urine pH 5.0 Urine Specific [place] 1.015 Urine Protein >=300 mg/dL (NEG-TRACE) Urine Glucose (UA) Negative mg/dL (NEG) Urine Ketones (Stick) Negative mg/dL (NEG) Urine Blood Trace (NEG) Urine Nitrite Negative (NEG) Urine Bilirubin Negative (NEG) Urine Urobilinogen Dipstick 1.0 mg/dL (0.2 mg/dL) Urine Leukocyte Esterase Negative (NEG) Urine RBC 6-10 /HPF (0-2) Urine WBC 1-4 /HPF (0-4) Urine Squamous Epithelial Cells Mod /LPF Urine Bacteria 0 /HPF (0-FEW) Urine Hyaline Casts Few /HPF Urine Mucus Mod /LPF VTE Prophylaxis Ordered VTE Prophylaxis Devices: Yes VTE Pharmacological Prophylaxi: Yes Assessment/Plan Assessment/Plan acute metabolic encephalopathy hypoglycemia, admit to ICU, D10 fluid, freq checks acute renal failure moderate severe malnutrition mild troponinemia COPD, stable, rales, start nebs anemia of CKD, consider transfusion if Hgb < 8 admitted to ICU KEVIN SHARMA MD September 22, 2016 15:15
[2016-09-22] MEDS: LABETALOL 20 MG/4 ML DISP.SYRIN. IVP PRN (15:19)
--- NOTE | 2016-09-22 15:38 | ACF ---
Admission Forms Criteria DIABETES, HYPOGLYCEMIA Clinical Indications for Admission to Inpatient Care (Place 'X' for any and all applicable criteria): Admission is indicated for ALL of the following (1)(2)(3)(4)(5): [X]I. Suspected or documented hypoglycemia (plasma glucose less than 50 mg/dL (2.78 mmol/L)) with severe clinical manifestations or issues as indicated by ANY ONE of the following: [ ]a) Altered mental status (eg, coma, confusion) [ ]b) Seizure [ ]c) Ataxia [ ]d) Dysphasia [ ]e) Focal neurologic deficit(6) [ ]f) Severe weakness or fatigue [X]g) Significant clinical signs or symptoms that do not resolve with treatment [ ]h) Hypoglycemia induced by ANY ONE of the following(7)(8)(9): [ ]i) Sulfonylurea(10) [ ]ii) Long-acting insulin (eg, half-life more than 6 hours ) (11) [ ]II. Management at other levels of care (See General Criteria: Observation Care) is not feasible because of ANY ONE of the following: [ ]a) Condition was not adequately corrected with treatment at other levels of care. [ ]b) Treatment at other levels of care is not appropriate because of condition severity (eg, coma). Extended stay beyond goal length of stay may be needed for(3)(12)(19): [ ]a) Long acting sulfonylurea-inducing hypoglycemia (10) [ ]b) Presentation in coma [ ]c) Identified etiology of hypoglycemia requires ongoing care (eg, infection ) [ ]d) Neurologic deficit [ ]e) Active serious comorbidities (eg, renal failure, heart failure) The original [employer] content created by [employer] has been revised. The portions of the content which have been revised are identified through the use of italic text or in bold, and [facility] [employer] has neither reviewed nor approved the modified material.All other unmodified content is copyright [employer] [facility]. Please see references footnoted in the original [employer] [facility] edition 2016 Admission Criteria Met?: Yes MALA MCELROY September 22, 2016 15:38
[2016-09-22] MEDS ORDERED: MAGNESIUM SULFATE 2GM 50 ML IV PRN (15:45)
--- NOTE | 2016-09-22 15:47 | PDOC2 ---
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) Pulmonary: COPD, Pulmonary embolus (extensive), Other (severe pulmonary HTN) GI: Other (dysphagia) Heme/Onc: Anemia NOS, Other (RLE DVT) Hepatobiliary: No pertinent hx Psych: No pertinent hx Musculoskeletal: Osteoarthritis Rheumatologic: No pertinent hx Infectious disease: Other (MRSA) ENT: No pertinent hx Renal/: Chronic renal insuff Endocrine: Diabetes (2) Dermatology: Other (right foot eschars) Past Surgical History Past Surgical History: Other ([facility] 07/19/2016) Family History Family History: No Significant, Hypertension Social History No ALCOHOL: none Drugs: None Lives: with Family Current Problem List Problem List Problems Medical Problems: (1) Hypoglycemia Status: Acute Current Medications Current Medications Current Medications Dextrose (Dextrose 50%-Water Syringe) 25 gm STK-MED ONCE IV ; Start 09/22/16 at 10:39; Stop 09/22/16 at 10:40; Status DC Dextrose 500 ml @ 30 mls/hr 1X ONCE IV Last administered on 09/22/16 11:52; Start 09/22/16 at 11:45; Stop 09/23/16 at 04:24 Dextrose (Dextrose 50%-Water Syringe) 25 gm STK-MED ONCE IV ; Start 09/22/16 at 11:45; Stop 09/22/16 at 11:46; Status DC Dextrose (Dextrose 50%-Water Syringe) 25 gm 1X ONCE IV Last administered on 10:45; Start 09/22/16 at 12:00; Stop 09/22/16 at 12:01; Status DC Dextrose (Dextrose 50%-Water Syringe) 25 gm 1X ONCE IV Last administered on 11:40; Start 09/22/16 at 12:00; Stop 09/22/16 at 12:01; Status DC Nitroglycerin (Nitrostat) 0.4 mg PRN Q5MIN PRN SL CHEST PAIN Last administered on 09/22/16 12:28; Start 09/22/16 at 12:00 Ondansetron HCl (Zofran) 4 mg PRN Q8HRS PRN IV NAUSEA/VOMITING; Start 09/22/16 at 12:30; Stop 09/23/16 at 12:29 Levofloxacin/ Dextrose (Levaquin Per Pharmacy) 1 each PRN DAILY PRN MC SEE COMMENTS; Start 09/22/16 at 12:45 Levofloxacin/ Dextrose 150 ml @ 100 mls/hr Q48H IV Last administered on 13:10; Start 09/22/16 at 13:00 Sodium Chloride 500 ml @ 1,000 mls/hr 1X ONCE IV Last administered on 13:10; Start 09/22/16 at 13:15; Stop 09/22/16 at 13:44; Status DC Dextrose (Dextrose 50%-Water Syringe) 25 gm 1X ONCE IV Last administered on 13:11; Start 09/22/16 at 13:15; Stop 09/22/16 at 13:16; Status DC Insulin Aspart (NovoLOG) 0-5 UNITS TIDWMEALS SQ ; Start 09/22/16 at 17:00 Dextrose (Dextrose 50%-Water Syringe) 12.5 gm PRN Q15MIN PRN IV SEE COMMENTS Last administered on 09/22/16 13:58; Start 09/22/16 at 14:00 Labetalol HCl (Normodyne) 20 mg PRN Q2HR PRN IVP HYPERTENSION, SEE COMMENTS Last administered on 09/22/16 15:19; Start 09/22/16 at 14:15 Amlodipine Besylate (Norvasc) 10 mg DAILY PO ; Start 09/23/16 at 09:00; Status UNV Atorvastatin Calcium (Lipitor) 40 mg HS PO ; Start 09/22/16 at 21:00 Diltiazem HCl (Cardizem 24hr Cd) 240 mg DAILY PO Last administered on 14:41; Start 09/22/16 at 15:00 Isosorbide Mononitrate (Imdur) 120 mg DAILY PO Last administered on 09/22/16 14:41; Start 09/22/16 at 15:00 Albuterol/ Ipratropium (Duoneb) 3 ml STK-MED ONCE .ROUTE ; Start 09/22/16 at 15: 06; Stop 09/22/16 at 15:07; Status DC Albuterol/ Ipratropium (Duoneb) 3 ml RTQID NEB ; Start 09/22/16 at 16:00 Budesonide (Pulmicort) 0.5 mg RTBID NEB ; Start 09/22/16 at 20:00 Active Scripts Active Levofloxacin 750 Mg Tablet 1 Tab PO DAILY Levemir Flextouch (Insulin Detemir) 100 Unit/1 Ml Insuln.pen 20 Units SQ QHS 30 Days Novolog Flexpen (Insulin Aspart) 100 Unit/1 Ml Insuln.pen 10 Units SQ TIDAC 30 Days Reported Percocet 5-325 Mg Tablet (Oxycodone/Acetaminophen) 1 Each Tablet 1 Tab PO PRN Q6HRS PRN Advair 100-50 Diskus (Fluticasone/Salmeterol) 1 Each Disk.w.dev 1 Puff IH BID Spiriva Respimat (Tiotropium Grahn) 4 Gm Mist.inhal 2.5 Gm IH DAILY Symbicort 160-4.5 Mcg Inhaler (Budesonide/Formoterol Fumarate) 10.2 Gm Hfa.aer.ad 2 Puff IH BID Atorvastatin Calcium 20 Mg Tablet 20 Mg PO HS Lisinopril-Hctz 10-12.5 Mg Tab (Lisinopril/Hydrochlorothiazide) 1 Each Tablet 1 Tab PO DAILY Isosorbide Mononitrate Er (Isosorbide Mononitrate) 120 Mg Tab.er.24h 120 Mg PO DAILY Novolin N (Nph, Human Insulin Isophane) 100 Unit/1 Ml Vial 0 SQ Promethazine-Codeine Syrup (Promethazine Hcl/Codeine) 118 Ml Syrup 5 Ml PO Q4- 6HRS Diltiazem 24HR Cd (Diltiazem Hcl) 240 Mg Cap.er.24h 240 Mg PO DAILY NITROGLYCERIN SubLingual (Nitroglycerin) 0.4 Mg Tab.subl 0.4 Mg SL PRN Q5MIN PRN Atorvastatin Calcium 40 Mg Tablet 40 Mg PO HS Allergies Allergies: Coded Allergies: lisinopril (Verified Allergy, Severe, Anaphylaxis, 08/03/16) Emergent Intubation 07/12/16. I S O L A T I O N *CONTACT* (Verified Allergy, Unknown, 08/03/16) mrsa ROS Review of System GEN: no Fevers ? Chills EYES: no new Visual Complaints ENT: no EN Drainage no Hearing deficiets CVS: no Orthopnea no CP RESP: no SOB no CUELLAR GI: no Nausea no Vomiting : + Dysuria occ Urgency frequency "Hard time peeing" HEME: no easy bruising no Palp Ly Nodes NEURO no Focal Weakness no Sz PSYCH: no Suicidal Ideation no Depression SKIN: no Rashes ENDO: no Polyuria or Polydipsia no Hot/Cold Intolerance Hypoglycemia MU SK: no Arthraigia no Myalgia Physical Exam Physical Exam General Appearance: Awake Alert Oriented x 2 In no Distress Eyes: VIsion Unchanged Conjunctiva Normal EN: No EN Drainage Mucous Memb. moist; Poor Dentition Neck: no JVD no JVP Supple no Thyromegaly CVS: S1 S2 ? Murmur No Gallop No Rub no Edema Resp: no Rales no Rhonchi no Acc. Muscle use GI: BAS +ve NO Bruit Non Tender Non Distended : no CVA tenderness; no Suprapubic Tenderness SKIN: no Rashes Breast Exam deferred Mu.Sk: Adequate ROM min Muscle Atrophy Heme: Unable to palpate Obvious LAD no palp Splenomegaly NEURO: Good Strength and Tone Cranial Nerves II - XII grossly intact Psych: not Depressed no Active hallucination Vital Signs Vital Signs Date Time Temp Pulse Resp B/P (MAP) Pulse Ox O2 Delivery O2 Flow Rate FiO2 09/22/16 15:19 111 182/118 09/22/16 15:18 100 Nasal Cannula 4.0 09/22/16 14:46 20 09/22/16 10:30 97.6 97.6 Assessment & Plan BASIM - R/o AU with bl Scan. IVF as ordered. Doubt hypoglycemic Sz per se but will chekc CK. Current FLuid and E-lyte status does not necessitate emergent need for Dialysis. Will re-evaluate for Dialysis in am . [place] Creat is 1.1 in July. Hypoalbuminemia - Proteinruia noted -quantitate Proteinuria as noted on UA -quantitate with Ratio Anemia: chekc [place]; Sev HTN: Current BP meds reviewed. See orders for changes. ? Vol dpeltion - IVF Urinary freq and urgency - check PVR - ? URO help Discussed Plan of Care and prognosis etc. at length with family. Labs Labs Laboratory Tests Test 09/22/16 10:34 09/22/16 10:45 09/22/16 11:29 09/22/16 12:14 Glucose (Fingerstick) 33 mg/dL (70-99) 46 mg/dL (70-99) 37 mg/dL (70-99) White Blood Count 9.9 x10^3/uL (4.0-11.0) Red Blood Count 2.76 x10^6/uL (4.30-5.70) Hemoglobin 8.0 g/dL (13.0-17.5) Hematocrit 24.2 % (39.0-53.0) Mean Corpuscular Volume 88 fL (79-100) Mean Corpuscular Hemoglobin 29 pg (25-35) Mean Corpuscular Hemoglobin Concent 33 g/dL (31-37) Red Cell Distribution Width 17.1 % (11.5-14.5) Platelet Count 435 x10^3/uL (140-400) Neutrophils (%) (Auto) 70 % (31-73) Lymphocytes (%) (Auto) 17 % (24-48) Monocytes (%) (Auto) 12 % (0-9) Eosinophils (%) (Auto) 1 % (0-3) Basophils (%) (Auto) 1 % (0-3) Neutrophils # (Auto) 6.9 x10^3uL (1.8-7.7) Lymphocytes # (Auto) 1.7 x10^3/uL (1.0-4.8) Monocytes # (Auto) 1.1 x10^3/uL (0.0-1.1) Eosinophils # (Auto) 0.1 x10^3/uL (0.0-0.7) Basophils # (Auto) 0.1 x10^3/uL (0.0-0.2) Prothrombin Time 14.9 SEC (11.7-14.0) Prothromb Time International Ratio 1.2 (0.8-1.1) Sodium Level 137 mmol/L (136-145) Potassium Level 3.8 mmol/L (3.5-5.1) Chloride Level 100 mmol/L (98-107) Carbon Dioxide Level 23 mmol/L (21-32) Anion Gap 14 (6-14) Blood Urea Nitrogen 46 mg/dL (8-26) Creatinine 2.7 mg/dL (0.7-1.3) Estimated GFR (Cockcroft-Gault) 28.1 Glucose Level 18 mg/dL (70-99) Calcium Level 8.6 mg/dL (8.5-10.1) Magnesium Level 2.3 mg/dL (1.8-2.4) Total Bilirubin 0.3 mg/dL (0.2-1.0) Direct Bilirubin 0.2 mg/dL (0.0-0.2) Aspartate Amino Transf (AST/SGOT) 21 U/L (15-37) Alanine Aminotransferase (ALT/SGPT) 22 U/L (16-63) Alkaline Phosphatase 92 U/L (46-116) Creatine Kinase 62 U/L (39-308) Creatine Kinase MB (Mass) 1.1 ng/mL (0.0-3.6) Creatine Kinase MB Relative Index 1.8 % (0-4) Troponin I Quantitative 0.132 ng/mL (0.000-0.055) AJ-Fif-H-Type Natriuretic Peptide > 63758 pg/mL (0-124) Total Protein 6.9 g/dL (6.4-8.2) Albumin 2.5 g/dL (3.4-5.0) Lipase 61 U/L (73-393) Thyroid Stimulating Hormone (TSH) 2.045 uIU/mL (0.358-3.74) Test 09/22/16 12:54 09/22/16 13:10 09/22/16 13:15 09/22/16 13:39 Glucose (Fingerstick) 39 mg/dL (70-99) 58 mg/dL (70-99) Lactic Acid Level 2.0 mmol/L (0.4-2.0) Urine Collection Type Unknown Urine Color Yellow Urine Clarity Clear Urine pH 5.0 Urine Specific Onward 1.015 Urine Protein >=300 mg/dL (NEG-TRACE) Urine Glucose (UA) Negative mg/dL (NEG) Urine Ketones (Stick) Negative mg/dL (NEG) Urine Blood Trace (NEG) Urine Nitrite Negative (NEG) Urine Bilirubin Negative (NEG) Urine Urobilinogen Dipstick 1.0 mg/dL (0.2 mg/dL) Urine Leukocyte Esterase Negative (NEG) Urine RBC 6-10 /HPF (0-2) Urine WBC 1-4 /HPF (0-4) Urine Squamous Epithelial Cells Mod /LPF Urine Bacteria 0 /HPF (0-FEW) Urine Hyaline Casts Few /HPF Urine Mucus Mod /LPF Test 09/22/16 14:09 09/22/16 15:22 Glucose (Fingerstick) 105 mg/dL (70-99) 136 mg/dL (70-99) Laboratory Tests Test 09/22/16 10:34 09/22/16 10:45 09/22/16 11:29 09/22/16 12:14 Glucose (Fingerstick) 33 mg/dL (70-99) 46 mg/dL (70-99) 37 mg/dL (70-99) White Blood Count 9.9 x10^3/uL (4.0-11.0) Red Blood Count 2.76 x10^6/uL (4.30-5.70) Hemoglobin 8.0 g/dL (13.0-17.5) Hematocrit 24.2 % (39.0-53.0) Mean Corpuscular Volume 88 fL (79-100) Mean Corpuscular Hemoglobin 29 pg (25-35) Mean Corpuscular Hemoglobin Concent 33 g/dL (31-37) Red Cell Distribution Width 17.1 % (11.5-14.5) Platelet Count 435 x10^3/uL (140-400) Neutrophils (%) (Auto) 70 % (31-73) Lymphocytes (%) (Auto) 17 % (24-48) Monocytes (%) (Auto) 12 % (0-9) Eosinophils (%) (Auto) 1 % (0-3) Basophils (%) (Auto) 1 % (0-3) Neutrophils # (Auto) 6.9 x10^3uL (1.8-7.7) Lymphocytes # (Auto) 1.7 x10^3/uL (1.0-4.8) Monocytes # (Auto) 1.1 x10^3/uL (0.0-1.1) Eosinophils # (Auto) 0.1 x10^3/uL (0.0-0.7) Basophils # (Auto) 0.1 x10^3/uL (0.0-0.2) Prothrombin Time 14.9 SEC (11.7-14.0) Prothromb Time International Ratio 1.2 (0.8-1.1) Sodium Level 137 mmol/L (136-145) Potassium Level 3.8 mmol/L (3.5-5.1) Chloride Level 100 mmol/L (98-107) Carbon Dioxide Level 23 mmol/L (21-32) Anion Gap 14 (6-14) Blood Urea Nitrogen 46 mg/dL (8-26) Creatinine 2.7 mg/dL (0.7-1.3) Estimated GFR (Cockcroft-Gault) 28.1 Glucose Level 18 mg/dL (70-99) Calcium Level 8.6 mg/dL (8.5-10.1) Magnesium Level 2.3 mg/dL (1.8-2.4) Total Bilirubin 0.3 mg/dL (0.2-1.0) Direct Bilirubin 0.2 mg/dL (0.0-0.2) Aspartate Amino Transf (AST/SGOT) 21 U/L (15-37) Alanine Aminotransferase (ALT/SGPT) 22 U/L (16-63) Alkaline Phosphatase 92 U/L (46-116) Creatine Kinase 62 U/L (39-308) Creatine Kinase MB (Mass) 1.1 ng/mL (0.0-3.6) Creatine Kinase MB Relative Index 1.8 % (0-4) Troponin I Quantitative 0.132 ng/mL (0.000-0.055) PB-Aha-C-Type Natriuretic Peptide > 97495 pg/mL (0-124) Total Protein 6.9 g/dL (6.4-8.2) Albumin 2.5 g/dL (3.4-5.0) Lipase 61 U/L (73-393) Thyroid Stimulating Hormone (TSH) 2.045 uIU/mL (0.358-3.74) Test 09/22/16 12:54 09/22/16 13:10 09/22/16 13:15 09/22/16 13:39 Glucose (Fingerstick) 39 mg/dL (70-99) 58 mg/dL (70-99) Lactic Acid Level 2.0 mmol/L (0.4-2.0) Urine Collection Type Unknown Urine Color Yellow Urine Clarity Clear Urine pH 5.0 Urine Specific Onward 1.015 Urine Protein >=300 mg/dL (NEG-TRACE) Urine Glucose (UA) Negative mg/dL (NEG) Urine Ketones (Stick) Negative mg/dL (NEG) Urine Blood Trace (NEG) Urine Nitrite Negative (NEG) Urine Bilirubin Negative (NEG) Urine Urobilinogen Dipstick 1.0 mg/dL (0.2 mg/dL) Urine Leukocyte Esterase Negative (NEG) Urine RBC 6-10 /HPF (0-2) Urine WBC 1-4 /HPF (0-4) Urine Squamous Epithelial Cells Mod /LPF Urine Bacteria 0 /HPF (0-FEW) Urine Hyaline Casts Few /HPF Urine Mucus Mod /LPF Test 09/22/16 14:09 09/22/16 15:22 Glucose (Fingerstick) 105 mg/dL (70-99) 136 mg/dL (70-99) Images Images Renal US: 07/14/2016 Bilateral renal ultrasound without comparison for acute renal failure, chronic kidney disease. Technique: Real-time grayscale and color Doppler evaluation of the kidneys and urinary tract is performed. The right kidney measures 12.0 x 5.1 x 5.4 cm and the left measures 9.9 x 5.8 x 4.6 cm. No hydronephrosis or perinephric fluid involving either kidney. No focal parenchymal abnormalities. Urinary bladder is partially fluid distended, and a Champion catheter is present. Ureteral jets are not identified. There is normal color Doppler flow to the right kidney. Color Doppler flow to the left kidney and resistive indices were not obtained. Impression: 1. No sonographically evident renal abnormality. FELIBERTO GIL MD September 22, 2016 15:46
[2016-09-22] MEDS: IV NORMAL SALINE 1000ML BAG 1,000 ML IV SCH (15:58)
[2016-09-22] MEDS: IPRATRPIUM/ALBUTEROL 0.5/2.5MG 3 ML NEBU. NEB SCH ×2 (16:00→20:10)
[2016-09-22 16:24] LABS: % SAT IRON 15 % (15-34); IRON,SERUM 43 ug/dL (65-175)
[2016-09-22] MEDS ORDERED: IV DEXTROSE 5% 1,000 ML IV SCH (17:45)
[2016-09-22] MEDS: INSULIN ASPART 300 UNITS/3 ML INSULN.PEN SQ SCH (18:17)
[2016-09-22] MEDS: BUDESONIDE 0.5 MG/2 ML NEBU. NEB SCH (20:10)
[2016-09-22] MEDS: ATORVASTATIN CALCIUM 40 MG TABLET. PO SCH (21:39)
[2016-09-23] VITALS (16 sets, daily range): BP systolic 146–177; BP diastolic 80–115
[2016-09-23] MEDS: IV NORMAL SALINE 1000ML BAG 1,000 ML IV SCH (01:35)
[2016-09-23 05:09] LABS: BASO % 1 % (0-3); EOS % 1 % (0-3); HEMATOCRIT 23.6 % (39.0-53.0); HEMOGLOBIN 7.6 g/dL (13.0-17.5); LYMPH # 1.5 x10^3/uL (1.0-4.8); LYMPH % 20 % (24-48); MEAN CORPUSCULAR HEMOGLOBIN 28 pg (25-35); MEAN CORPUSCULAR HGB CONC 32 g/dL (31-37); MEAN CORPUSCULAR VOLUME 88 fL (79-100); MONO % 10 % (0-9); NEUT % 69 % (31-73); PLATELET COUNT 387 x10^3/uL (140-400); RED BLOOD COUNT 2.69 x10^6/uL (4.30-5.70); RED CELL DISTRIBUTION WIDTH 16.5 % (11.5-14.5); WHITE BLOOD COUNT 7.5 x10^3/uL (4.0-11.0)
[2016-09-23 05:35] LABS: ALBUMIN 2.3 g/dL (3.4-5.0); CALCIUM 8.5 mg/dL (8.5-10.1); CREATININE 2.7 mg/dL (0.7-1.3); GFR 28.1; PHOSPHORUS 4.8 mg/dL (2.6-4.7); POTASSIUM 4.8 mmol/L (3.5-5.1)
--- NOTE | 2016-09-23 07:48 | PDOC ---
SUBJECTIVE ROS BASIM/ CKD III ? C/o hip and Knee pain CVS: ? Orthopnea, no CP RESP: + SOB, ? CUELLAR GI: no Nausea, no Vomiting : no Dysuria, no Urgency OBJECTIVE Vital Signs Vital Signs Date Time Temp Pulse Resp B/P (MAP) Pulse Ox O2 Delivery O2 Flow Rate FiO2 09/23/16 06:00 91 24 164/98 (120) 94 Nasal Cannula 4.0 09/23/16 04:00 97.7 97.7 I & 0 Intake and Output 09/23/16 07:00 Intake Total 2951 ml Output Total 470 ml Balance 2481 ml Intake Oral 390 ml IV Total 2561 ml Output Urine Total 470 ml # Bowel Movements 1 PHYSICAL EXAM Physical Exam General Appearance: Awake Alert Oriented x 2 In no Distress; dysphonic Eyes: VIsion Unchanged Conjunctiva Normal EN: No EN Drainage Mucous Memb. moist; Poor Dentition Neck: ? JVD + JVP Supple no Thyromegaly CVS: S1 S2 ? Murmur No Gallop No Rub no Edema Resp: no Rales no Rhonchi no Acc. Muscle use; dec AE kassy GI: BS +ve NO Bruit Non Tender Non Distended : no CVA tenderness; no Suprapubic Tenderness SKIN: no Rashes Breast Exam deferred Mu.Sk: Adequate ROM (Pain with movt of left lwoer ext) min Muscle Atrophy Heme: Unable to palpate Obvious LAD no palp Splenomegaly NEURO: Good Strength and Tone Cranial Nerves II - XII grossly intact Psych: not Depressed no Active hallucination Assessment & Plan BASIM - (? ATN too) R/o AU with bl Scan (Pending). Doubt hypoglycemic Sz per se but will chekc CK. Current FLuid and E-lyte status does not necessitate emergent need for Dialysis. Will re-evaluate for Dialysis in am . [place] Creat is 1.1 in July. Not sure if pt was restarted on ADAN-i as noted on OP Meds as documented. Checking C3,C4 H/o Rt DIGNA in June - ? Worsening of same (although not kassy) may be contributing to some of his SOB, Fluid retention and HTN Pulm edema on CXR - EF 70% previously; ? due to DIGNA. Will discuss with Dr Sergio daniel lasix vs watch (Stat CXR ordered for reval) Oliguria - may need lasix/ Dialysis PVD in the past, now with hip and Knee pain - ? Rest pain - may need Vasc to see Hypoalbuminemia - Proteinruia noted -quantitate with reatio Proteinuria as noted on UA -quantitate with Ratio Anemia: Iron is low but ferritin is ^ so no IVFe for now Sev HTN:(? Renovascular) Current BP meds reviewed. See orders for changes. ? Add Aldactone for RAAS Blockade since we cant use ADAN-i/ ARB given previous Angioedema ? Vol dpeltion - D/c IVF in settingof Pulm edema on CXT Urinary freq and urgency - check PVR - ? URO help Discussed Plan of Care and prognosis etc. at length with family. COMMENT/RELEVANT DATA Meds Current Medications Medications (Trade) Dose Ordered Sig/Ann Marie Start Time Stop Time Status Last Admin Dose Admin Albuterol/ Ipratropium (Duoneb) 3 ml RTQID 09/22/16 16:00 09/22/16 20:10 3 ML Amlodipine Besylate (Norvasc) 10 mg DAILY 09/23/16 09:00 UNV Atorvastatin Calcium (Lipitor) 40 mg HS 09/22/16 21:00 09/22/16 21:39 40 MG Budesonide (Pulmicort) 0.5 mg RTBID 09/22/16 20:00 09/22/16 20:10 0.5 MG Dextrose 1,000 ml @ 50 mls/hr Q20H 09/22/16 17:45 09/22/16 17:39 50 MLS/HR Dextrose (Dextrose 50%-Water Syringe) 12.5 gm PRN Q15MIN PRN 09/22/16 14:00 09/22/16 13:58 12.5 GM Diltiazem HCl (Cardizem 24hr Cd) 240 mg DAILY 09/22/16 15:00 09/22/16 14:41 240 MG Insulin Aspart (NovoLOG) 0-5 UNITS TIDWMEALS 09/22/16 17:00 09/22/16 18:17 2 UNITS Isosorbide Mononitrate (Imdur) 120 mg DAILY 09/22/16 15:00 09/22/16 14:41 120 MG Labetalol HCl (Normodyne) 20 mg PRN Q2HR PRN 09/22/16 14:15 09/22/16 15:19 20 MG Levofloxacin/ Dextrose 150 ml @ 100 mls/hr Q48H 09/22/16 13:00 09/22/16 13:10 100 MLS/HR Levofloxacin/ Dextrose (Levaquin Per Pharmacy) 1 each PRN DAILY PRN 09/22/16 12:45 Magnesium Sulfate/ Dextrose 50 ml @ 25 mls/hr PRN DAILY PRN 09/22/16 15:45 Nitroglycerin (Nitrostat) 0.4 mg PRN Q5MIN PRN 09/22/16 12:00 09/22/16 12:28 0.4 MG Ondansetron HCl (Zofran) 4 mg PRN Q8HRS PRN 09/22/16 12:30 09/23/16 12:29 Sodium Chloride 1,000 ml @ 100 mls/hr Q10H 09/22/16 15:45 09/23/16 01:35 100 MLS/HR Lab Laboratory Tests Test 09/22/16 10:34 09/22/16 10:45 09/22/16 11:29 09/22/16 12:14 Glucose (Fingerstick) 33 mg/dL (70-99) 46 mg/dL (70-99) 37 mg/dL (70-99) White Blood Count 9.9 x10^3/uL (4.0-11.0) Red Blood Count 2.76 x10^6/uL (4.30-5.70) Hemoglobin 8.0 g/dL (13.0-17.5) Hematocrit 24.2 % (39.0-53.0) Mean Corpuscular Volume 88 fL (79-100) Mean Corpuscular Hemoglobin 29 pg (25-35) Mean Corpuscular Hemoglobin Concent 33 g/dL (31-37) Red Cell Distribution Width 17.1 % (11.5-14.5) Platelet Count 435 x10^3/uL (140-400) Neutrophils (%) (Auto) 70 % (31-73) Lymphocytes (%) (Auto) 17 % (24-48) Monocytes (%) (Auto) 12 % (0-9) Eosinophils (%) (Auto) 1 % (0-3) Basophils (%) (Auto) 1 % (0-3) Neutrophils # (Auto) 6.9 x10^3uL (1.8-7.7) Lymphocytes # (Auto) 1.7 x10^3/uL (1.0-4.8) Monocytes # (Auto) 1.1 x10^3/uL (0.0-1.1) Eosinophils # (Auto) 0.1 x10^3/uL (0.0-0.7) Basophils # (Auto) 0.1 x10^3/uL (0.0-0.2) Reticulocyte Count (auto) 1.9 % (0.5-2.5) Prothrombin Time 14.9 SEC (11.7-14.0) Prothromb Time International Ratio 1.2 (0.8-1.1) Sodium Level 137 mmol/L (136-145) Potassium Level 3.8 mmol/L (3.5-5.1) Chloride Level 100 mmol/L (98-107) Carbon Dioxide Level 23 mmol/L (21-32) Anion Gap 14 (6-14) Blood Urea Nitrogen 46 mg/dL (8-26) Creatinine 2.7 mg/dL (0.7-1.3) Estimated GFR (Cockcroft-Gault) 28.1 Glucose Level 18 mg/dL (70-99) Calcium Level 8.6 mg/dL (8.5-10.1) Magnesium Level 2.3 mg/dL (1.8-2.4) Iron Level 43 ug/dL (65-175) Total Iron Binding Capacity 294 ug/dL (250-450) Iron Saturation 15 % (15-34) Ferritin 1547 ng/mL (26-388) Total Bilirubin 0.3 mg/dL (0.2-1.0) Direct Bilirubin 0.2 mg/dL (0.0-0.2) Aspartate Amino Transf (AST/SGOT) 21 U/L (15-37) Alanine Aminotransferase (ALT/SGPT) 22 U/L (16-63) Alkaline Phosphatase 92 U/L (46-116) Creatine Kinase 62 U/L (39-308) Creatine Kinase MB (Mass) 1.1 ng/mL (0.0-3.6) Creatine Kinase MB Relative Index 1.8 % (0-4) Troponin I Quantitative 0.132 ng/mL (0.000-0.055) [id number]-Type Natriuretic Peptide > 07116 pg/mL (0-124) Total Protein 6.9 g/dL (6.4-8.2) Albumin 2.5 g/dL (3.4-5.0) Lipase 61 U/L (73-393) Thyroid Stimulating Hormone (TSH) 2.045 uIU/mL (0.358-3.74) Test 09/22/16 12:54 09/22/16 13:10 09/22/16 13:15 09/22/16 13:30 Glucose (Fingerstick) 39 mg/dL (70-99) Lactic Acid Level 2.0 mmol/L (0.4-2.0) Urine Collection Type Unknown Urine Color Yellow Urine Clarity Clear Urine pH 5.0 Urine Specific [place] 1.015 Urine Protein >=300 mg/dL (NEG-TRACE) Urine Glucose (UA) Negative mg/dL (NEG) Urine Ketones (Stick) Negative mg/dL (NEG) Urine Blood Trace (NEG) Urine Nitrite Negative (NEG) Urine Bilirubin Negative (NEG) Urine Urobilinogen Dipstick 1.0 mg/dL (0.2 mg/dL) Urine Leukocyte Esterase Negative (NEG) Urine RBC 6-10 /HPF (0-2) Urine WBC 1-4 /HPF (0-4) Urine Squamous Epithelial Cells Mod /LPF Urine Bacteria 0 /HPF (0-FEW) Urine Hyaline Casts Few /HPF Urine Mucus Mod /LPF Nasal Screen MRSA (PCR) Negative (Negative) Test 09/22/16 13:39 09/22/16 14:09 09/22/16 15:22 09/22/16 17:25 Glucose (Fingerstick) 58 mg/dL (70-99) 105 mg/dL (70-99) 136 mg/dL (70-99) 148 mg/dL (70-99) Test 09/22/16 19:00 09/22/16 20:58 09/23/16 00:45 09/23/16 04:35 Troponin I Quantitative 0.192 ng/mL (0.000-0.055) 0.192 ng/mL (0.000-0.055) Glucose (Fingerstick) 166 mg/dL (70-99) White Blood Count 7.5 x10^3/uL (4.0-11.0) Red Blood Count 2.69 x10^6/uL (4.30-5.70) Hemoglobin 7.6 g/dL (13.0-17.5) Hematocrit 23.6 % (39.0-53.0) Mean Corpuscular Volume 88 fL (79-100) Mean Corpuscular Hemoglobin 28 pg (25-35) Mean Corpuscular Hemoglobin Concent 32 g/dL (31-37) Red Cell Distribution Width 16.5 % (11.5-14.5) Platelet Count 387 x10^3/uL (140-400) Neutrophils (%) (Auto) 69 % (31-73) Lymphocytes (%) (Auto) 20 % (24-48) Monocytes (%) (Auto) 10 % (0-9) Eosinophils (%) (Auto) 1 % (0-3) Basophils (%) (Auto) 1 % (0-3) Neutrophils # (Auto) 5.2 x10^3uL (1.8-7.7) Lymphocytes # (Auto) 1.5 x10^3/uL (1.0-4.8) Monocytes # (Auto) 0.7 x10^3/uL (0.0-1.1) Eosinophils # (Auto) 0.1 x10^3/uL (0.0-0.7) Basophils # (Auto) 0.0 x10^3/uL (0.0-0.2) Sodium Level 135 mmol/L (136-145) Potassium Level 4.8 mmol/L (3.5-5.1) Chloride Level 100 mmol/L (98-107) Carbon Dioxide Level 23 mmol/L (21-32) Anion Gap 12 (6-14) Blood Urea Nitrogen 45 mg/dL (8-26) Creatinine 2.7 mg/dL (0.7-1.3) Estimated GFR (Cockcroft-Gault) 28.1 Glucose Level 158 mg/dL (70-99) Calcium Level 8.5 mg/dL (8.5-10.1) Phosphorus Level 4.8 mg/dL (2.6-4.7) Magnesium Level 2.0 mg/dL (1.8-2.4) Creatine Kinase 67 U/L (39-308) Albumin 2.3 g/dL (3.4-5.0) Other 1. Moderate atherosclerotic plaquing of the abdominal aorta and its branches. 2. Moderate atherosclerotic plaquing in the larger of the two right renal arteries with moderate underlying stenosis estimated at approximately 60% of the luminal diameter. 3. 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 4. Miscellaneous findings as described above including bilateral pleural effusions, pulmonary infiltrates, ascites and anasarca. FELIBERTO GIL MD Sep 23, 2016 07:48
[2016-09-23] MEDS: BUDESONIDE 0.5 MG/2 ML NEBU. NEB SCH ×2 (07:52→20:28)
[2016-09-23] MEDS: IPRATRPIUM/ALBUTEROL 0.5/2.5MG 3 ML NEBU. NEB SCH ×4 (07:52→20:29)
[2016-09-23] MEDS: INSULIN ASPART 300 UNITS/3 ML INSULN.PEN SQ SCH ×3 (08:00→17:48)
[2016-09-23 08:01] LABS: HCO3 ABG 20 mmol/L (21-28); PCO2 ABG 34 mmHg (35-46); PH ABG 7.39 (7.35-7.45); PO2 ABG 88 mmHg (65-108); SAT O2 ABG 95 % (92-99)
[2016-09-23 08:02] LABS: FIO2 ABG 36
--- NOTE | 2016-09-23 08:21 | RAD ---
Indication shortness of air. A single view of the chest was obtained and is compared to a study yesterday. Heart size and pulmonary vessels are similar. Patchy infiltrates are seen. Volume loss in the right lung is similar. A significant change in the appearance of the chest is not seen. IMPRESSION: Pulmonary infiltrates persist. There has not been a significant change in the appearance of the chest since yesterday study
[2016-09-23] MEDS: ISOSORBIDE MONONITRATE ER 30 MG TAB.ER.24H PO SCH (08:30)
[2016-09-23] MEDS ORDERED: amLODIPine BESYLATE 10 MG TABLET PO SCH (09:00)
--- NOTE | 2016-09-23 09:20 | PDOC ---
PROGRESS NOTES Chief Complaint Chief Complaint 1, Hypoglycemia with acute encephalopathy POA, resolved 2. 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 Mod PCM 4. High fall risk 5. CLaudication R>L 6. Gen weakness Old dx: 2. HX bilateral PE with cardiac arrest ([facility] 2016) sec to PE 3. CLean cardiac cath 4.Hx Non-occlusive thrombus, R leg (07/15) 5. COPD on home o2? exacerbation - wheezy 6. DM2; insulin requiring with HYPOGLYCEMIA 7. Hx Oliguric Hyperkalemic renal failure - stable 8 Dyslipidemia on statin 9. HX significant angioedema likely sec to ADAN inhib needing intubation (06/2016) History of Present Illness History of Present Illness KNown to me Actually got a call from [facility] last week, asked me about the plans and his course when he was dcd here. Apparently [facility] d[facility] him and did not give Rxs? 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 Moderate atherosclerotic plaquing of the abdominal aorta and its branches. 2. Moderate atherosclerotic plaquing in the larger of the two right renal arteries with moderate underlying stenosis estimated at approximately 60% of the luminal diameter. 3. 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 4. Miscellaneous findings as described above including bilateral pleural effusions, pulmonary infiltrates, ascites and anasarca. PLAN: [facility]sc sx consult SSI Dc dextrose iVF - CXR worse today (wet) PT/OT Ok to t.o ICU if need beds MOnitor BS - very labile, will hold off long acting for now Dw Rneal, [employer] Vitals Vitals Vital Signs Date Time Temp Pulse Resp B/P (MAP) Pulse Ox O2 Delivery O2 Flow Rate FiO2 6/1/17 08:30 165/105 09/23/16 08:30 93 09/23/16 08:00 97.6 22 98 Nasal Cannula 4.0 97.6 Physical Exam General: Alert, Oriented X3, Cooperative, mild distress Heart: Regular rate (Sinus tach), Normal S1, Normal S2, Other (3/6 systolic murmur to LLS border) Lungs: Other Abdomen: Soft, No tenderness Extremities: No clubbing, No edema, Normal pulses Skin: No rashes Labs LABS Laboratory Tests Test 09/22/16 10:34 09/22/16 10:45 09/22/16 11:29 09/22/16 12:14 Glucose (Fingerstick) 33 mg/dL (70-99) 46 mg/dL (70-99) 37 mg/dL (70-99) White Blood Count 9.9 x10^3/uL (4.0-11.0) Red Blood Count 2.76 x10^6/uL (4.30-5.70) Hemoglobin 8.0 g/dL (13.0-17.5) Hematocrit 24.2 % (39.0-53.0) Mean Corpuscular Volume 88 fL (79-100) Mean Corpuscular Hemoglobin 29 pg (25-35) Mean Corpuscular Hemoglobin Concent 33 g/dL (31-37) Red Cell Distribution Width 17.1 % (11.5-14.5) Platelet Count 435 x10^3/uL (140-400) Neutrophils (%) (Auto) 70 % (31-73) Lymphocytes (%) (Auto) 17 % (24-48) Monocytes (%) (Auto) 12 % (0-9) Eosinophils (%) (Auto) 1 % (0-3) Basophils (%) (Auto) 1 % (0-3) Neutrophils # (Auto) 6.9 x10^3uL (1.8-7.7) Lymphocytes # (Auto) 1.7 x10^3/uL (1.0-4.8) Monocytes # (Auto) 1.1 x10^3/uL (0.0-1.1) Eosinophils # (Auto) 0.1 x10^3/uL (0.0-0.7) Basophils # (Auto) 0.1 x10^3/uL (0.0-0.2) Reticulocyte Count (auto) 1.9 % (0.5-2.5) Prothrombin Time 14.9 SEC (11.7-14.0) Prothromb Time International Ratio 1.2 (0.8-1.1) Sodium Level 137 mmol/L (136-145) Potassium Level 3.8 mmol/L (3.5-5.1) Chloride Level 100 mmol/L (98-107) Carbon Dioxide Level 23 mmol/L (21-32) Anion Gap 14 (6-14) Blood Urea Nitrogen 46 mg/dL (8-26) Creatinine 2.7 mg/dL (0.7-1.3) Estimated GFR (Cockcroft-Gault) 28.1 Glucose Level 18 mg/dL (70-99) Calcium Level 8.6 mg/dL (8.5-10.1) Magnesium Level 2.3 mg/dL (1.8-2.4) Iron Level 43 ug/dL (65-175) Total Iron Binding Capacity 294 ug/dL (250-450) Iron Saturation 15 % (15-34) Ferritin 1547 ng/mL (26-388) Total Bilirubin 0.3 mg/dL (0.2-1.0) Direct Bilirubin 0.2 mg/dL (0.0-0.2) Aspartate Amino Transf (AST/SGOT) 21 U/L (15-37) Alanine Aminotransferase (ALT/SGPT) 22 U/L (16-63) Alkaline Phosphatase 92 U/L (46-116) Creatine Kinase 62 U/L (39-308) Creatine Kinase MB (Mass) 1.1 ng/mL (0.0-3.6) Creatine Kinase MB Relative Index 1.8 % (0-4) Troponin I Quantitative 0.132 ng/mL (0.000-0.055) NC-Xxh-H-Type Natriuretic Peptide > 37875 pg/mL (0-124) Total Protein 6.9 g/dL (6.4-8.2) Albumin 2.5 g/dL (3.4-5.0) Lipase 61 U/L (73-393) Thyroid Stimulating Hormone (TSH) 2.045 uIU/mL (0.358-3.74) Test 09/22/16 12:54 09/22/16 13:10 09/22/16 13:15 09/22/16 13:30 Glucose (Fingerstick) 39 mg/dL (70-99) Lactic Acid Level 2.0 mmol/L (0.4-2.0) Urine Collection Type Unknown Urine Color Yellow Urine Clarity Clear Urine pH 5.0 Urine Specific [place] 1.015 Urine Protein >=300 mg/dL (NEG-TRACE) Urine Glucose (UA) Negative mg/dL (NEG) Urine Ketones (Stick) Negative mg/dL (NEG) Urine Blood Trace (NEG) Urine Nitrite Negative (NEG) Urine Bilirubin Negative (NEG) Urine Urobilinogen Dipstick 1.0 mg/dL (0.2 mg/dL) Urine Leukocyte Esterase Negative (NEG) Urine RBC 6-10 /HPF (0-2) Urine WBC 1-4 /HPF (0-4) Urine Squamous Epithelial Cells Mod /LPF Urine Bacteria 0 /HPF (0-FEW) Urine Hyaline Casts Few /HPF Urine Mucus Mod /LPF Nasal Screen MRSA (PCR) Negative (Negative) Test 09/22/16 13:39 09/22/16 14:09 09/22/16 15:22 09/22/16 17:25 Glucose (Fingerstick) 58 mg/dL (70-99) 105 mg/dL (70-99) 136 mg/dL (70-99) 148 mg/dL (70-99) Test 09/22/16 19:00 09/22/16 20:58 09/23/16 00:45 09/23/16 04:35 Troponin I Quantitative 0.192 ng/mL (0.000-0.055) 0.192 ng/mL (0.000-0.055) Glucose (Fingerstick) 166 mg/dL (70-99) White Blood Count 7.5 x10^3/uL (4.0-11.0) Red Blood Count 2.69 x10^6/uL (4.30-5.70) Hemoglobin 7.6 g/dL (13.0-17.5) Hematocrit 23.6 % (39.0-53.0) Mean Corpuscular Volume 88 fL (79-100) Mean Corpuscular Hemoglobin 28 pg (25-35) Mean Corpuscular Hemoglobin Concent 32 g/dL (31-37) Red Cell Distribution Width 16.5 % (11.5-14.5) Platelet Count 387 x10^3/uL (140-400) Neutrophils (%) (Auto) 69 % (31-73) Lymphocytes (%) (Auto) 20 % (24-48) Monocytes (%) (Auto) 10 % (0-9) Eosinophils (%) (Auto) 1 % (0-3) Basophils (%) (Auto) 1 % (0-3) Neutrophils # (Auto) 5.2 x10^3uL (1.8-7.7) Lymphocytes # (Auto) 1.5 x10^3/uL (1.0-4.8) Monocytes # (Auto) 0.7 x10^3/uL (0.0-1.1) Eosinophils # (Auto) 0.1 x10^3/uL (0.0-0.7) Basophils # (Auto) 0.0 x10^3/uL (0.0-0.2) Sodium Level 135 mmol/L (136-145) Potassium Level 4.8 mmol/L (3.5-5.1) Chloride Level 100 mmol/L (98-107) Carbon Dioxide Level 23 mmol/L (21-32) Anion Gap 12 (6-14) Blood Urea Nitrogen 45 mg/dL (8-26) Creatinine 2.7 mg/dL (0.7-1.3) Estimated GFR (Cockcroft-Gault) 28.1 Glucose Level 158 mg/dL (70-99) Calcium Level 8.5 mg/dL (8.5-10.1) Phosphorus Level 4.8 mg/dL (2.6-4.7) Magnesium Level 2.0 mg/dL (1.8-2.4) Creatine Kinase 67 U/L (39-308) Albumin 2.3 g/dL (3.4-5.0) Test 09/23/16 08:00 O2 Saturation 95 % (92-99) Arterial Blood pH 7.39 (7.35-7.45) Arterial Blood pCO2 at Patient Temp 34 mmHg (35-46) Arterial Blood pO2 at Patient Temp 88 mmHg (65-108) Arterial Blood HCO3 20 mmol/L (21-28) Arterial Blood Base Excess -4 mmol/L (-3-3) FiO2 36 Review of Systems Review of Systems leg pains, all else is neg Assessment and Plan Assessmemt and Plan Problems Medical Problems: (1) Hypoglycemia Status: Acute Problems: Comment Review of Relevant I have reviewed the following items valerie (where applicable) has been applied. Labs Laboratory Tests Test 09/22/16 10:34 09/22/16 10:45 09/22/16 11:29 09/22/16 12:14 Glucose (Fingerstick) 33 mg/dL (70-99) 46 mg/dL (70-99) 37 mg/dL (70-99) White Blood Count 9.9 x10^3/uL (4.0-11.0) Red Blood Count 2.76 x10^6/uL (4.30-5.70) Hemoglobin 8.0 g/dL (13.0-17.5) Hematocrit 24.2 % (39.0-53.0) Mean Corpuscular Volume 88 fL (79-100) Mean Corpuscular Hemoglobin 29 pg (25-35) Mean Corpuscular Hemoglobin Concent 33 g/dL (31-37) Red Cell Distribution Width 17.1 % (11.5-14.5) Platelet Count 435 x10^3/uL (140-400) Neutrophils (%) (Auto) 70 % (31-73) Lymphocytes (%) (Auto) 17 % (24-48) Monocytes (%) (Auto) 12 % (0-9) Eosinophils (%) (Auto) 1 % (0-3) Basophils (%) (Auto) 1 % (0-3) Neutrophils # (Auto) 6.9 x10^3uL (1.8-7.7) Lymphocytes # (Auto) 1.7 x10^3/uL (1.0-4.8) Monocytes # (Auto) 1.1 x10^3/uL (0.0-1.1) Eosinophils # (Auto) 0.1 x10^3/uL (0.0-0.7) Basophils # (Auto) 0.1 x10^3/uL (0.0-0.2) Reticulocyte Count (auto) 1.9 % (0.5-2.5) Prothrombin Time 14.9 SEC (11.7-14.0) Prothromb Time International Ratio 1.2 (0.8-1.1) Sodium Level 137 mmol/L (136-145) Potassium Level 3.8 mmol/L (3.5-5.1) Chloride Level 100 mmol/L (98-107) Carbon Dioxide Level 23 mmol/L (21-32) Anion Gap 14 (6-14) Blood Urea Nitrogen 46 mg/dL (8-26) Creatinine 2.7 mg/dL (0.7-1.3) Estimated GFR (Cockcroft-Gault) 28.1 Glucose Level 18 mg/dL (70-99) Calcium Level 8.6 mg/dL (8.5-10.1) Magnesium Level 2.3 mg/dL (1.8-2.4) Iron Level 43 ug/dL (65-175) Total Iron Binding Capacity 294 ug/dL (250-450) Iron Saturation 15 % (15-34) Ferritin 1547 ng/mL (26-388) Total Bilirubin 0.3 mg/dL (0.2-1.0) Direct Bilirubin 0.2 mg/dL (0.0-0.2) Aspartate Amino Transf (AST/SGOT) 21 U/L (15-37) Alanine Aminotransferase (ALT/SGPT) 22 U/L (16-63) Alkaline Phosphatase 92 U/L (46-116) Creatine Kinase 62 U/L (39-308) Creatine Kinase MB (Mass) 1.1 ng/mL (0.0-3.6) Creatine Kinase MB Relative Index 1.8 % (0-4) Troponin I Quantitative 0.132 ng/mL (0.000-0.055) CS-Ypu-B-Type Natriuretic Peptide > 80115 pg/mL (0-124) Total Protein 6.9 g/dL (6.4-8.2) Albumin 2.5 g/dL (3.4-5.0) Lipase 61 U/L (73-393) Thyroid Stimulating Hormone (TSH) 2.045 uIU/mL (0.358-3.74) Test 09/22/16 12:54 09/22/16 13:10 09/22/16 13:15 09/22/16 13:30 Glucose (Fingerstick) 39 mg/dL (70-99) Lactic Acid Level 2.0 mmol/L (0.4-2.0) Urine Collection Type Unknown Urine Color Yellow Urine Clarity Clear Urine pH 5.0 Urine Specific [place] 1.015 Urine Protein >=300 mg/dL (NEG-TRACE) Urine Glucose (UA) Negative mg/dL (NEG) Urine Ketones (Stick) Negative mg/dL (NEG) Urine Blood Trace (NEG) Urine Nitrite Negative (NEG) Urine Bilirubin Negative (NEG) Urine Urobilinogen Dipstick 1.0 mg/dL (0.2 mg/dL) Urine Leukocyte Esterase Negative (NEG) Urine RBC 6-10 /HPF (0-2) Urine WBC 1-4 /HPF (0-4) Urine Squamous Epithelial Cells Mod /LPF Urine Bacteria 0 /HPF (0-FEW) Urine Hyaline Casts Few /HPF Urine Mucus Mod /LPF Nasal Screen MRSA (PCR) Negative (Negative) Test 09/22/16 13:39 09/22/16 14:09 09/22/16 15:22 09/22/16 17:25 Glucose (Fingerstick) 58 mg/dL (70-99) 105 mg/dL (70-99) 136 mg/dL (70-99) 148 mg/dL (70-99) Test 09/22/16 19:00 09/22/16 20:58 09/23/16 00:45 09/23/16 04:35 Troponin I Quantitative 0.192 ng/mL (0.000-0.055) 0.192 ng/mL (0.000-0.055) Glucose (Fingerstick) 166 mg/dL (70-99) White Blood Count 7.5 x10^3/uL (4.0-11.0) Red Blood Count 2.69 x10^6/uL (4.30-5.70) Hemoglobin 7.6 g/dL (13.0-17.5) Hematocrit 23.6 % (39.0-53.0) Mean Corpuscular Volume 88 fL (79-100) Mean Corpuscular Hemoglobin 28 pg (25-35) Mean Corpuscular Hemoglobin Concent 32 g/dL (31-37) Red Cell Distribution Width 16.5 % (11.5-14.5) Platelet Count 387 x10^3/uL (140-400) Neutrophils (%) (Auto) 69 % (31-73) Lymphocytes (%) (Auto) 20 % (24-48) Monocytes (%) (Auto) 10 % (0-9) Eosinophils (%) (Auto) 1 % (0-3) Basophils (%) (Auto) 1 % (0-3) Neutrophils # (Auto) 5.2 x10^3uL (1.8-7.7) Lymphocytes # (Auto) 1.5 x10^3/uL (1.0-4.8) Monocytes # (Auto) 0.7 x10^3/uL (0.0-1.1) Eosinophils # (Auto) 0.1 x10^3/uL (0.0-0.7) Basophils # (Auto) 0.0 x10^3/uL (0.0-0.2) Sodium Level 135 mmol/L (136-145) Potassium Level 4.8 mmol/L (3.5-5.1) Chloride Level 100 mmol/L (98-107) Carbon Dioxide Level 23 mmol/L (21-32) Anion Gap 12 (6-14) Blood Urea Nitrogen 45 mg/dL (8-26) Creatinine 2.7 mg/dL (0.7-1.3) Estimated GFR (Cockcroft-Gault) 28.1 Glucose Level 158 mg/dL (70-99) Calcium Level 8.5 mg/dL (8.5-10.1) Phosphorus Level 4.8 mg/dL (2.6-4.7) Magnesium Level 2.0 mg/dL (1.8-2.4) Creatine Kinase 67 U/L (39-308) Albumin 2.3 g/dL (3.4-5.0) Test 09/23/16 08:00 O2 Saturation 95 % (92-99) Arterial Blood pH 7.39 (7.35-7.45) Arterial Blood pCO2 at Patient Temp 34 mmHg (35-46) Arterial Blood pO2 at Patient Temp 88 mmHg (65-108) Arterial Blood HCO3 20 mmol/L (21-28) Arterial Blood Base Excess -4 mmol/L (-3-3) FiO2 36 Laboratory Tests Test 09/22/16 10:34 09/22/16 10:45 09/22/16 11:29 09/22/16 12:14 Glucose (Fingerstick) 33 mg/dL (70-99) 46 mg/dL (70-99) 37 mg/dL (70-99) White Blood Count 9.9 x10^3/uL (4.0-11.0) Red Blood Count 2.76 x10^6/uL (4.30-5.70) Hemoglobin 8.0 g/dL (13.0-17.5) Hematocrit 24.2 % (39.0-53.0) Mean Corpuscular Volume 88 fL (79-100) Mean Corpuscular Hemoglobin 29 pg (25-35) Mean Corpuscular Hemoglobin Concent 33 g/dL (31-37) Red Cell Distribution Width 17.1 % (11.5-14.5) Platelet Count 435 x10^3/uL (140-400) Neutrophils (%) (Auto) 70 % (31-73) Lymphocytes (%) (Auto) 17 % (24-48) Monocytes (%) (Auto) 12 % (0-9) Eosinophils (%) (Auto) 1 % (0-3) Basophils (%) (Auto) 1 % (0-3) Neutrophils # (Auto) 6.9 x10^3uL (1.8-7.7) Lymphocytes # (Auto) 1.7 x10^3/uL (1.0-4.8) Monocytes # (Auto) 1.1 x10^3/uL (0.0-1.1) Eosinophils # (Auto) 0.1 x10^3/uL (0.0-0.7) Basophils # (Auto) 0.1 x10^3/uL (0.0-0.2) Reticulocyte Count (auto) 1.9 % (0.5-2.5) Prothrombin Time 14.9 SEC (11.7-14.0) Prothromb Time International Ratio 1.2 (0.8-1.1) Sodium Level 137 mmol/L (136-145) Potassium Level 3.8 mmol/L (3.5-5.1) Chloride Level 100 mmol/L (98-107) Carbon Dioxide Level 23 mmol/L (21-32) Anion Gap 14 (6-14) Blood Urea Nitrogen 46 mg/dL (8-26) Creatinine 2.7 mg/dL (0.7-1.3) Estimated GFR (Cockcroft-Gault) 28.1 Glucose Level 18 mg/dL (70-99) Calcium Level 8.6 mg/dL (8.5-10.1) Magnesium Level 2.3 mg/dL (1.8-2.4) Iron Level 43 ug/dL (65-175) Total Iron Binding Capacity 294 ug/dL (250-450) Iron Saturation 15 % (15-34) Ferritin 1547 ng/mL (26-388) Total Bilirubin 0.3 mg/dL (0.2-1.0) Direct Bilirubin 0.2 mg/dL (0.0-0.2) Aspartate Amino Transf (AST/SGOT) 21 U/L (15-37) Alanine Aminotransferase (ALT/SGPT) 22 U/L (16-63) Alkaline Phosphatase 92 U/L (46-116) Creatine Kinase 62 U/L (39-308) Creatine Kinase MB (Mass) 1.1 ng/mL (0.0-3.6) Creatine Kinase MB Relative Index 1.8 % (0-4) Troponin I Quantitative 0.132 ng/mL (0.000-0.055) KD-Ang-V-Type Natriuretic Peptide > 98675 pg/mL (0-124) Total Protein 6.9 g/dL (6.4-8.2) Albumin 2.5 g/dL (3.4-5.0) Lipase 61 U/L (73-393) Thyroid Stimulating Hormone (TSH) 2.045 uIU/mL (0.358-3.74) Test 09/22/16 12:54 09/22/16 13:10 09/22/16 13:15 09/22/16 13:30 Glucose (Fingerstick) 39 mg/dL (70-99) Lactic Acid Level 2.0 mmol/L (0.4-2.0) Urine Collection Type Unknown Urine Color Yellow Urine Clarity Clear Urine pH 5.0 Urine Specific [place] 1.015 Urine Protein >=300 mg/dL (NEG-TRACE) Urine Glucose (UA) Negative mg/dL (NEG) Urine Ketones (Stick) Negative mg/dL (NEG) Urine Blood Trace (NEG) Urine Nitrite Negative (NEG) Urine Bilirubin Negative (NEG) Urine Urobilinogen Dipstick 1.0 mg/dL (0.2 mg/dL) Urine Leukocyte Esterase Negative (NEG) Urine RBC 6-10 /HPF (0-2) Urine WBC 1-4 /HPF (0-4) Urine Squamous Epithelial Cells Mod /LPF Urine Bacteria 0 /HPF (0-FEW) Urine Hyaline Casts Few /HPF Urine Mucus Mod /LPF Nasal Screen MRSA (PCR) Negative (Negative) Test 09/22/16 13:39 09/22/16 14:09 09/22/16 15:22 09/22/16 17:25 Glucose (Fingerstick) 58 mg/dL (70-99) 105 mg/dL (70-99) 136 mg/dL (70-99) 148 mg/dL (70-99) Test 09/22/16 19:00 09/22/16 20:58 09/23/16 00:45 09/23/16 04:35 Troponin I Quantitative 0.192 ng/mL (0.000-0.055) 0.192 ng/mL (0.000-0.055) Glucose (Fingerstick) 166 mg/dL (70-99) White Blood Count 7.5 x10^3/uL (4.0-11.0) Red Blood Count 2.69 x10^6/uL (4.30-5.70) Hemoglobin 7.6 g/dL (13.0-17.5) Hematocrit 23.6 % (39.0-53.0) Mean Corpuscular Volume 88 fL (79-100) Mean Corpuscular Hemoglobin 28 pg (25-35) Mean Corpuscular Hemoglobin Concent 32 g/dL (31-37) Red Cell Distribution Width 16.5 % (11.5-14.5) Platelet Count 387 x10^3/uL (140-400) Neutrophils (%) (Auto) 69 % (31-73) Lymphocytes (%) (Auto) 20 % (24-48) Monocytes (%) (Auto) 10 % (0-9) Eosinophils (%) (Auto) 1 % (0-3) Basophils (%) (Auto) 1 % (0-3) Neutrophils # (Auto) 5.2 x10^3uL (1.8-7.7) Lymphocytes # (Auto) 1.5 x10^3/uL (1.0-4.8) Monocytes # (Auto) 0.7 x10^3/uL (0.0-1.1) Eosinophils # (Auto) 0.1 x10^3/uL (0.0-0.7) Basophils # (Auto) 0.0 x10^3/uL (0.0-0.2) Sodium Level 135 mmol/L (136-145) Potassium Level 4.8 mmol/L (3.5-5.1) Chloride Level 100 mmol/L (98-107) Carbon Dioxide Level 23 mmol/L (21-32) Anion Gap 12 (6-14) Blood Urea Nitrogen 45 mg/dL (8-26) Creatinine 2.7 mg/dL (0.7-1.3) Estimated GFR (Cockcroft-Gault) 28.1 Glucose Level 158 mg/dL (70-99) Calcium Level 8.5 mg/dL (8.5-10.1) Phosphorus Level 4.8 mg/dL (2.6-4.7) Magnesium Level 2.0 mg/dL (1.8-2.4) Creatine Kinase 67 U/L (39-308) Albumin 2.3 g/dL (3.4-5.0) Test 09/23/16 08:00 O2 Saturation 95 % (92-99) Arterial Blood pH 7.39 (7.35-7.45) Arterial Blood pCO2 at Patient Temp 34 mmHg (35-46) Arterial Blood pO2 at Patient Temp 88 mmHg (65-108) Arterial Blood HCO3 20 mmol/L (21-28) Arterial Blood Base Excess -4 mmol/L (-3-3) FiO2 36 Medications Current Medications Dextrose (Dextrose 50%-Water Syringe) 25 gm STK-MED ONCE IV ; Start 09/22/16 at 10:39; Stop 09/22/16 at 10:40; Status DC Dextrose 500 ml @ 30 mls/hr 1X ONCE IV Last administered on 09/22/16 11:52; Start 09/22/16 at 11:45; Stop 09/22/16 at 17:38; Status DC Dextrose (Dextrose 50%-Water Syringe) 25 gm STK-MED ONCE IV ; Start 09/22/16 at 11:45; Stop 09/22/16 at 11:46; Status DC Dextrose (Dextrose 50%-Water Syringe) 25 gm 1X ONCE IV Last administered on 10:45; Start 09/22/16 at 12:00; Stop 09/22/16 at 12:01; Status DC Dextrose (Dextrose 50%-Water Syringe) 25 gm 1X ONCE IV Last administered on 11:40; Start 09/22/16 at 12:00; Stop 09/22/16 at 12:01; Status DC Nitroglycerin (Nitrostat) 0.4 mg PRN Q5MIN PRN SL CHEST PAIN Last administered on 09/22/16 12:28; Start 09/22/16 at 12:00 Ondansetron HCl (Zofran) 4 mg PRN Q8HRS PRN IV NAUSEA/VOMITING; Start 09/22/16 at 12:30; Stop 09/23/16 at 12:29 Levofloxacin/ Dextrose (Levaquin Per Pharmacy) 1 each PRN DAILY PRN MC SEE COMMENTS; Start 09/22/16 at 12:45 Levofloxacin/ Dextrose 150 ml @ 100 mls/hr Q48H IV Last administered on 13:10; Start 09/22/16 at 13:00 Sodium Chloride 500 ml @ 1,000 mls/hr 1X ONCE IV Last administered on 13:10; Start 09/22/16 at 13:15; Stop 09/22/16 at 13:44; Status DC Dextrose (Dextrose 50%-Water Syringe) 25 gm 1X ONCE IV Last administered on 13:11; Start 09/22/16 at 13:15; Stop 09/22/16 at 13:16; Status DC Insulin Aspart (NovoLOG) 0-5 UNITS TIDWMEALS SQ Last administered on 09/22/16 18:17; Start 09/22/16 at 17:00 Dextrose (Dextrose 50%-Water Syringe) 12.5 gm PRN Q15MIN PRN IV SEE COMMENTS Last administered on 09/22/16 13:58; Start 09/22/16 at 14:00 Labetalol HCl (Normodyne) 20 mg PRN Q2HR PRN IVP HYPERTENSION, SEE COMMENTS Last administered on 09/22/16 15:19; Start 09/22/16 at 14:15 Amlodipine Besylate (Norvasc) 10 mg DAILY PO ; Start 09/23/16 at 09:00; Status UNV Atorvastatin Calcium (Lipitor) 40 mg HS PO Last administered on 09/22/16 21:39 ; Start 09/22/16 at 21:00 Diltiazem HCl (Cardizem 24hr Cd) 240 mg DAILY PO Last administered on 09/23/16 08:30; Start 09/22/16 at 15:00 Isosorbide Mononitrate (Imdur) 120 mg DAILY PO Last administered on 09/23/16 08 :30; Start 09/22/16 at 15:00 Albuterol/ Ipratropium (Duoneb) 3 ml STK-MED ONCE .ROUTE ; Start 09/22/16 at 15: 06; Stop 09/22/16 at 15:07; Status DC Albuterol/ Ipratropium (Duoneb) 3 ml RTQID NEB Last administered on 09/23/16 07 :52; Start 09/22/16 at 16:00 Budesonide (Pulmicort) 0.5 mg RTBID NEB Last administered on 09/23/16 07:52; Start 09/22/16 at 20:00 Magnesium Sulfate/ Dextrose 50 ml @ 25 mls/hr PRN DAILY PRN IV for Mag < 1.7 on am labs; Start 09/22/16 at 15:45 Sodium Chloride 1,000 ml @ 100 mls/hr Q10H IV Last administered on 09/23/16 01 :35; Start 09/22/16 at 15:45; Stop 09/23/16 at 07:45; Status DC Dextrose 1,000 ml @ 50 mls/hr Q20H IV Last administered on 09/22/16 17:39; Start 09/22/16 at 17:45; Stop 09/23/16 at 07:45; Status DC Active Scripts Active Levofloxacin 750 Mg Tablet 1 Tab PO DAILY Levemir Flextouch (Insulin Detemir) 100 Unit/1 Ml Insuln.pen 20 Units SQ QHS 30 Days Novolog Flexpen (Insulin Aspart) 100 Unit/1 Ml Insuln.pen 10 Units SQ TIDAC 30 Days Reported Percocet 5-325 Mg Tablet (Oxycodone/Acetaminophen) 1 Each Tablet 1 Tab PO PRN Q6HRS PRN Advair 100-50 Diskus (Fluticasone/Salmeterol) 1 Each Disk.w.dev 1 Puff IH BID Spiriva Respimat (Tiotropium [place]) 4 Gm Mist.inhal 2.5 Gm IH DAILY Symbicort 160-4.5 Mcg Inhaler (Budesonide/Formoterol Fumarate) 10.2 Gm Hfa.aer.ad 2 Puff IH BID Atorvastatin Calcium 20 Mg Tablet 20 Mg PO HS Lisinopril-Hctz 10-12.5 Mg Tab (Lisinopril/Hydrochlorothiazide) 1 Each Tablet 1 Tab PO DAILY Isosorbide Mononitrate Er (Isosorbide Mononitrate) 120 Mg Tab.er.24h 120 Mg PO DAILY Novolin N (Nph, Human Insulin Isophane) 100 Unit/1 Ml Vial 0 SQ Promethazine-Codeine Syrup (Promethazine Hcl/Codeine) 118 Ml Syrup 5 Ml PO Q4- 6HRS Diltiazem 24HR Cd (Diltiazem Hcl) 240 Mg Cap.er.24h 240 Mg PO DAILY NITROGLYCERIN SubLingual (Nitroglycerin) 0.4 Mg Tab.subl 0.4 Mg SL PRN Q5MIN PRN Atorvastatin Calcium 40 Mg Tablet 40 Mg PO HS Vitals/I & O Vital Sign - Last 24 Hours 09/22/16 09/22/16 09/22/16 09/22/16 10:30 10:47 11:04 11:44 Temp 97.6 97.6 Pulse 114 108 100 108 Resp 20 20 24 20 B/P (MAP) 199/115 (143) 174/102 (126) 184/114 (137) 194/120 (144) Pulse Ox 86 94 92 94 O2 Delivery Room Air Room Air Room Air 09/22/16 09/22/16 09/22/16 09/22/16 12:04 12:09 12:17 12:24 Pulse 98 100 102 94 Resp 18 20 B/P (MAP) 167/98 (121) 167/98 171/92 161/88 (112) Pulse Ox 93 94 09/22/16 09/22/16 09/22/16 09/22/16 12:28 12:44 13:48 14:41 Pulse 95 96 99 99 Resp 20 20 B/P (MAP) 161/88 159/99 (119) 179/110 (133) 179/111 Pulse Ox 93 97 O2 Delivery Room Air Nasal Cannula O2 Flow Rate 4.0 09/22/16 09/22/16 09/22/16 09/22/16 14:41 14:46 15:18 15:19 Pulse 99 100 111 Resp 20 B/P (MAP) 197/111 183/118 (139) 182/118 Pulse Ox 96 100 O2 Delivery Nasal Cannula Nasal Cannula O2 Flow Rate 4.0 4.0 09/22/16 09/22/16 09/22/16 09/22/16 15:37 15:41 15:46 16:45 Pulse 82 86 Resp 22 20 B/P (MAP) 182/118 (139) 151/100 (117) Pulse Ox 97 98 O2 Delivery Nasal Cannula Nasal Cannula Nasal Cannula Nasal Cannula O2 Flow Rate 4.0 4.0 4.0 4.0 09/22/16 09/22/16 09/22/16 09/22/16 17:45 18:00 18:52 19:45 Temp 97.8 97.8 Pulse 83 82 92 Resp 20 20 22 B/P (MAP) 146/93 (110) 141/93 (109) 144/93 (110) Pulse Ox 99 98 95 97 O2 Delivery Nasal Cannula Nasal Cannula Nasal Cannula Nasal Cannula O2 Flow Rate 4.0 4.0 4.0 4.0 09/22/16 09/22/16 09/22/16 09/22/16 20:00 20:12 21:00 23:00 Pulse 82 87 Resp 18 24 B/P (MAP) 134/88 (103) 140/77 (98) Pulse Ox 98 97 100 O2 Delivery Nasal Cannula Nasal Cannula BiPAP/CPAP O2 Flow Rate 4.0 4.0 4.0 09/22/16 09/22/16 09/22/16 09/23/16 23:10 23:26 23:45 00:00 Temp 97.8 97.8 Pulse 92 Resp 20 B/P (MAP) 151/90 (110) Pulse Ox 100 100 O2 Delivery Bi-pap Nasal Cannula Nasal Cannula O2 Flow Rate 4.0 4.0 09/23/16 09/23/16 09/23/16 09/23/16 00:01 01:00 02:00 04:00 Pulse 92 93 Resp 24 25 B/P (MAP) 151/99 (116) 155/94 (114) Pulse Ox 96 98 O2 Delivery Nasal Cannula Nasal Cannula Nasal Cannula Nasal Cannula O2 Flow Rate 4.0 4.0 4.0 4.0 09/23/16 09/23/16 09/23/16 09/23/16 04:00 05:00 06:00 07:00 Temp 97.7 97.7 Pulse 95 91 91 94 Resp 25 23 24 24 B/P (MAP) 168/101 (123) 164/105 (124) 164/98 (120) 177/115 (135) Pulse Ox 99 96 94 96 O2 Delivery Nasal Cannula Nasal Cannula Nasal Cannula Nasal Cannula O2 Flow Rate 4.0 4.0 4.0 4.0 09/23/16 09/23/16 09/23/16 09/23/16 07:52 07:53 08:00 08:30 Temp 97.6 97.6 Pulse 95 93 Resp 22 B/P (MAP) 165/105 (125) 165/105 Pulse Ox 98 98 O2 Delivery Nasal Cannula Nasal Cannula Nasal Cannula O2 Flow Rate 4.0 4.0 4.0 09/23/16 08:30 B/P (MAP) 165/105 Intake and Output 09/22/16 09/22/16 09/23/16 15:00 23:00 07:00 Intake Total 250 ml 897 ml 1804 ml Output Total 220 ml 250 ml Balance 250 ml 677 ml 1554 ml BALA BRYANT MD Sep 23, 2016 09:20
[2016-09-23] MEDS ORDERED: predniSONE 20 MG TABLET PO ONE (09:30)
[2016-09-23] MEDS ORDERED: DEXTROSE 50% 25 GM / 50ML DISP.SYRIN. IV PRN (09:30)
[2016-09-23] MEDS: BENZONATATE 100 MG CAPSULE. PO SCH ×3 (10:00→20:40)
--- NOTE | 2016-09-23 10:33 | PDOC ---
Provider Note Provider Note dictated IVANA COX MD Sep 23, 2016 10:33
--- NOTE | 2016-09-23 11:27 | CONS ---
DATE OF CONSULTATION: 09/22/2016 ATTENDING PHYSICIAN: Sana Puentes. REASON FOR CONSULTATION: COPD, encephalopathy, and hypoglycemia. HISTORY OF PRESENT ILLNESS: The patient is a 76-year-old male who is very well known to me. He has history of COPD. He states he used to be on oxygen but no longer uses. He was brought into the hospital with acute encephalopathy and was confused and lethargic. His sugars were 18. He was given an ampule of D50, and D10 was started in the ER. Since last night, his blood sugars are much improved. His encephalopathy has improved as well, and of late, his sugars are 148. He is awake and following commands. He denies any chest pain. No shortness of breath, no cough. Consultation was requested for further evaluation and management. PAST MEDICAL HISTORY: History of COPD, history of pulmonary embolism, history of severe pulmonary hypertension, history of angioedema secondary to ADAN inhibitors requiring intubation in the past, history of right lower extremity DVT, history of anemia, and chronic renal insufficiency. REVIEW OF SYSTEMS: Twelve-point system was obtained. Pertinent positives are discussed in my history of present illness. Otherwise, noncontributory. All systems that were negative were reviewed as well. FAMILY HISTORY: Noncontributory to lungs. SOCIAL HISTORY: Smoked for at least 50 years before quitting. MEDICATIONS: All reviewed as listed in the MRAD. PHYSICAL EXAMINATION: GENERAL: He is awake, following commands. VITAL SIGNS: Blood pressure 157/80, pulse ox 94% on 4 liters. HEENT: Sclerae nonicteric. NECK: Supple. LUNGS: With diminished breath sounds. CARDIOVASCULAR: Regular rate and rhythm. ABDOMEN: Soft, obese. EXTREMITIES: With no pitting edema. LABORATORY DATA: Reviewed. BUN is 45, creatinine is 2.7. His sugars are now 148. INR is 1.2, hemoglobin 7.6. ABGs with a pH of 7.39, pCO2 of 34, and a pO2 of 88 on 36% FIO2. IMPRESSION: 1. Acute encephalopathy secondary to severe hypoglycemia, now completely resolved. The mental status has improved. 2. History of chronic obstructive airway disease, clinically compensated. 3. History of extensive pulmonary embolism, resulting in shock in June. Status post treatment with anticoagulation Xarelto with last CT angiogram done on 2016 has shown resolution of pulmonary embolism.He is s/p IVC filter. 3 Months of AC was recommended. 4. History of IVC filter placement in June. 5. 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 6. Abnormal CXR with mild CHF RECOMMENDATIONS: 1. The patient is doing well from a pulmonary standpoint. 2. Continue present nasal cannula. 3. Monitor blood sugars closely. 4. Management of diabetes per PCP. 5. Monitor hemoglobin closely. 6. Discussed with RN. He could be transferred to the medical floor. 7. d/w Dr Raymond, cautious diuresis 8. Pt has resolution of PE by last CT. s/p treatment with Xarelto.Not the best candidate for halfway AC. reasonable to DC IVANA COX MD DR: KARLOS/taylor JOB#: [id number] / [id number] LANE
[2016-09-23] MEDS ORDERED: IPRATRPIUM/ALBUTEROL 0.5/2.5MG 3 ML NEBU. NEB SCH (12:00)
--- NOTE | 2016-09-23 13:58 | PDOC ---
CARDIO Progress Notes Date and Time Date of Service 09/23/16 Time of Evaluation 1250 Subjective Subjective: No Chest Pain, No shortness of breath, No Palpitations, Other (c/o abdominal pain and bilateral LE pain; left worse ) Vitals Vitals Vital Signs Date Time Temp Pulse Resp B/P (MAP) Pulse Ox O2 Delivery O2 Flow Rate FiO2 09/23/16 13:00 92 24 147/87 (107) 95 Nasal Cannula 4.0 09/23/16 12:00 97.5 97.5 Weight Weight [ ] Input and Output Intake and Output Intake and Output 09/23/16 07:00 Intake Total 2951 ml Output Total 470 ml Balance 2481 ml Intake Oral 390 ml IV Total 2561 ml Output Urine Total 470 ml # Bowel Movements 1 Laboratory Labs Laboratory Tests Test 09/22/16 14:09 09/22/16 15:22 09/22/16 17:25 09/22/16 19:00 Glucose (Fingerstick) 105 mg/dL (70-99) 136 mg/dL (70-99) 148 mg/dL (70-99) Troponin I Quantitative 0.192 ng/mL (0.000-0.055) Test 09/22/16 20:58 09/23/16 00:45 09/23/16 04:35 09/23/16 08:00 Glucose (Fingerstick) 166 mg/dL (70-99) Troponin I Quantitative 0.192 ng/mL (0.000-0.055) White Blood Count 7.5 x10^3/uL (4.0-11.0) Red Blood Count 2.69 x10^6/uL (4.30-5.70) Hemoglobin 7.6 g/dL (13.0-17.5) Hematocrit 23.6 % (39.0-53.0) Mean Corpuscular Volume 88 fL (79-100) Mean Corpuscular Hemoglobin 28 pg (25-35) Mean Corpuscular Hemoglobin Concent 32 g/dL (31-37) Red Cell Distribution Width 16.5 % (11.5-14.5) Platelet Count 387 x10^3/uL (140-400) Neutrophils (%) (Auto) 69 % (31-73) Lymphocytes (%) (Auto) 20 % (24-48) Monocytes (%) (Auto) 10 % (0-9) Eosinophils (%) (Auto) 1 % (0-3) Basophils (%) (Auto) 1 % (0-3) Neutrophils # (Auto) 5.2 x10^3uL (1.8-7.7) Lymphocytes # (Auto) 1.5 x10^3/uL (1.0-4.8) Monocytes # (Auto) 0.7 x10^3/uL (0.0-1.1) Eosinophils # (Auto) 0.1 x10^3/uL (0.0-0.7) Basophils # (Auto) 0.0 x10^3/uL (0.0-0.2) Sodium Level 135 mmol/L (136-145) Potassium Level 4.8 mmol/L (3.5-5.1) Chloride Level 100 mmol/L (98-107) Carbon Dioxide Level 23 mmol/L (21-32) Anion Gap 12 (6-14) Blood Urea Nitrogen 45 mg/dL (8-26) Creatinine 2.7 mg/dL (0.7-1.3) Estimated GFR (Cockcroft-Gault) 28.1 Glucose Level 158 mg/dL (70-99) Calcium Level 8.5 mg/dL (8.5-10.1) Phosphorus Level 4.8 mg/dL (2.6-4.7) Magnesium Level 2.0 mg/dL (1.8-2.4) Creatine Kinase 67 U/L (39-308) Albumin 2.3 g/dL (3.4-5.0) Cortisol AM Sample 25.3 ug/dL (6.2-19.4) O2 Saturation 95 % (92-99) Arterial Blood pH 7.39 (7.35-7.45) Arterial Blood pCO2 at Patient Temp 34 mmHg (35-46) Arterial Blood pO2 at Patient Temp 88 mmHg (65-108) Arterial Blood HCO3 20 mmol/L (21-28) Arterial Blood Base Excess -4 mmol/L (-3-3) FiO2 36 Test 09/23/16 08:22 Glucose (Fingerstick) 175 mg/dL (70-99) Microbiology Micro Microbiology 09/22/16 Blood Culture - Preliminary, Resulted NO GROWTH AFTER 1 DAY Physical Exam HEENT: Neck Supple W Full Motion Chest: Symmetric LUNGS: Other (diminished bases ) Heart: S1S2, RRR, murmurs (soft systolic murmur) Abdomen: Other (tenderness) Extremities: Other (1-2+ bilateral LE edema. DRSG intact to right foot ) Neurology: alert, follow commands Assessment Assessment 1. Elevated troponin 2. Acute on chronic diastolic CHF 3. Accelerated HTN 4. Anemia 5. BASIM on CKD 6. Acute on chronic respiratory failure 7. DM2 8. Acute encephalopathy secondary to severe hypoglycemia 9. H/o recent PE on Xarelto 10. HLP 11. H/o PAD with c/o LLE pain Recommendations Mild diuresis with monitoring of renal function QTc 511 and on Levaquin; consider alternative antibiotic therapy with prolonged QT interval. Repeat EKG in am. Will obtain LE duplex to note presence of significant flow-limiting disease. No further ischemic cardiac workup warranted as patient has had recent cath with no obstructive disease Continue supportive care LISS PIERCE APRN Sep 23, 2016 13:58
[2016-09-23 17:14] LABS: UR PROTEIN RD 228.4 mg/dL (Not Estab.)
[2016-09-23] MEDS ORDERED: FUROSEMIDE 20 MG/2 ML VIAL. IVP ONE (17:30)
[2016-09-23] MEDS: ATORVASTATIN CALCIUM 40 MG TABLET. PO SCH (20:40)
--- NOTE | 2016-09-23 21:19 | PDOC ---
Provider Note Provider Note Vascular Consult Dictated right foot and heel wound diabetes ASPVD Pulses 2+ femoral and popliteal pulses bilaterally Absent pedal pulses bilaterally REC arteriogram and revascularization right leg to improve the chances to heal the right digit and heel wound NICOLE WARREN MD Sep 23, 2016 21:19
[2016-09-23 21:36] LABS: BARBITURATES NEG (NEG); BENZODIAZEPINES NEG (NEG); CANNABINOIDS NEG (NEG); COCAINE NEG (NEG); METHADONE NEG (NEG); OPIATES NEG (NEG); PHENCYCLIDINE NEG (NEG)
[2016-09-24] VITALS (12 sets, daily range): BP systolic 145–168; BP diastolic 68–98
[2016-09-24] MEDS: NITROGLYCERIN SUBLINGUAL 0.4 MG BOTTLE OF 25. SL PRN (03:18)
[2016-09-24 04:34] LABS: ALBUMIN 2.6 g/dL (3.4-5.0); CALCIUM 8.8 mg/dL (8.5-10.1); GFR 24.9; PHOSPHORUS 5.1 mg/dL (2.6-4.7)
--- NOTE | 2016-09-24 04:35 | CONS ---
DATE OF CONSULTATION: 09/23/2016 REASON FOR CONSULTATION: Right foot wounds. HISTORY OF PRESENT ILLNESS: This is a 76-year-old male with underlying diabetes, admitted through the Emergency Room today with severe hypoglycemia. He responded to D50 bolus and infusion of 10% dextrose. The patient states he has otherwise been doing well and really is not complaining of any leg pain. However, on examination, he was noted to have multiple wounds in the distal aspect of his foot on the right as well as a heel eschar. Vascular consultation was requested. He has a history of previous pulmonary embolism and underwent pulmonary hypertension. He also has history of coronary artery disease, hypertension, hyperlipidemia and possible iliac artery aneurysms. He does not smoke, does not drink. His medications include Nitrostat, Levaquin, insulin, amlodipine, atorvastatin, diltiazem, Imdur, albuterol inhaler, and DuoNeb. PHYSICAL EXAMINATION: He is lying in bed, easily arousable. He is alert and cooperative. He has excellent radial pulses bilaterally. No palpable abdominal masses or tenderness. No palpable aneurysm. Excellent femoral and popliteal pulses bilaterally. Absent pedal pulses. He has an area of new skin formation in the heel on the left without skin breakdown or ulceration. On the right; however, there is an eschar involving the right heel. There is an eschar overlying the medial aspect of the first metatarsophalangeal joint. There is a cutaneous necrosis involving the toe tips of the first and third toe as well as eschar on the top of the second toe. There is an eschar lateral to the fifth metatarsal head. There is no eschar, skin breakdown or ulceration on the plantar surface of the foot. IMPRESSION: Diabetic peripheral vascular disease with skin necrosis and heel pressure sore. Peripheral neuropathy related to underlying diabetes as well. In the presence of absent pedal pulses and tissue loss, my recommendation is for arteriographic evaluation and revascularization either percutaneous or open. ____ arteriographic evaluation will be pursued tomorrow morning. We will review the results of that study and make further recommendations once those are available. NICOLE WARREN MD DR: GERMANIA/taylor JOB#: [id number] / [id number]
[2016-09-24 04:37] LABS: MAGNESIUM 2.2 mg/dL (1.8-2.4)
--- NOTE | 2016-09-24 06:04 | EKG ---
[facility] [address] [place] [address] Test Date: 2016-09-24 Test Time: 04:55:50 Pat Name: BRONSON TAI Department: Room: [facility] Gender: M [employer] Class[employer] Teacher: KENDRA : 1940 Requested By: LISS PIERCE Order Number: [id number] Reading MD: Tom Bass Measurements Intervals [place] Rate: 84 P: 0 DE: 190 QRS: 11 QRSD: 102 T: 0 QT: 416 QTc: 495 Interpretive Statements SINUS RHYTHM LEFT ATRIAL ABNORMALITY PROLONGED QT ABNORMAL ECG RI6.01 Unconfirmed report Compared to ECG 09/21/2016 17:33:58 Atrial abnormality now present Prolonged QT interval now present Sinus tachycardia no longer present Electronically Signed On 09-29-2016 9:27:47 CDT by Tom Bass
[2016-09-24] MEDS: IPRATRPIUM/ALBUTEROL 0.5/2.5MG 3 ML NEBU. NEB SCH ×4 (07:24→20:15)
[2016-09-24] MEDS: BUDESONIDE 0.5 MG/2 ML NEBU. NEB SCH ×2 (07:24→20:15)
[2016-09-24] MEDS: BENZONATATE 100 MG CAPSULE. PO SCH ×3 (08:08→20:23)
[2016-09-24] MEDS: ISOSORBIDE MONONITRATE ER 30 MG TAB.ER.24H PO SCH (08:09)
[2016-09-24] MEDS: INSULIN ASPART 300 UNITS/3 ML INSULN.PEN SQ SCH ×3 (08:20→18:34)
--- NOTE | 2016-09-24 09:16 | RAD ---
APPROVED REPORT Patient Location: IN-PATIENT Indications Non-healing Ulcer: VELOCITY AND DOPPLER WAVEFORM ANALYSIS RIGHT cm/secWaveformSeverity LEFT c m/secWaveformSeverity pCFA 100.8TriphasicpCFA 114.8Triphasic Prof Fem Art. 79.5BiphasicProf Fem Art. 136.7Biphasic Fem Art Prox. 98.3TriphasicFem Art Prox. 106.2Biphasic Fem Art Mid. 144.0TriphasicFem Art Mid. 102.4Triphasic Fem Art Dist. 128.4TriphasicFem Art Dist. 86.8Biphasic Pop Art(Fossa) Pop Art(Fossa) 44.5Biphasic Pop Art(BK) 64.3TriphasicPop Art(BK) ADMINISTRATIVE LIBRARY ASSISTANT Prox. 45.9BiphasicPTA Prox. 44.0Biphasic ADMINISTRATIVE LIBRARY ASSISTANT Dist. 31.4MonophasicPTA Dist. 67.1Biphasic Per Art Prox. 17.8MonophasicPer Art Prox. 38.8Biphasic Per Art Dist. 28.1MonophasicPer Art Dist. 53.2Biphasic KASHIF Prox. 23.1TriphasicATA Prox. 35.8Biphasic Findings On the right there is mild to moderate plaque extending from the common femoral artery to the poplit eal segments. The spectral waveforms are mostly triphasic and biphasic without any significant turbul ence noted on color Doppler. Based on velocities there is approximately a diffuse 50% stenosis involv ing the superficial femoral artery. Below the knee there is patency of the anterior tibial and invoice clerk ior tibial arteries with blunted waveforms and velocities suggestive of diffuse disease. The peroneal artery is likely occluded. Similarly on the left there is moderate diffuse atherosclerotic plaque from the common femoral artery to the popliteal segments. Below the knee there is patency of 3 runoff vessels. Waveforms are mostly biphasic throughout the left lower cavity. No high-grade flow-limiting stenosis is identified. Critical Notification Critical Value: No <Conclusion> 1. Moderate diffuse atherosclerotic disease in the right inflow vessels extending from the common fem oral artery to the popliteal segment. Diminished two-vessel runoff below the knee 2. No significant disease identified in the left lower extremity.
--- NOTE | 2016-09-24 09:48 | PDOC ---
PULMONARY PROGRESS NOTES Subjective mild SOA sats stable Vitals Vital Signs Date Time Temp Pulse Resp B/P (MAP) Pulse Ox O2 Delivery O2 Flow Rate FiO2 09/24/16 08:09 84 147/93 09/24/16 08:00 Nasal Cannula 3.0 09/24/16 07:59 97.7 20 99 97.7 General: Alert, No acute distress HEENT: Other Lungs: Other (decrease bs) Cardiovascular: S1, S2 Abdomen: Soft, Non-tender, Other Extremities: Other Labs Laboratory Tests Test 09/22/16 10:34 09/22/16 10:45 09/22/16 11:29 09/22/16 12:14 Glucose (Fingerstick) 33 mg/dL (70-99) 46 mg/dL (70-99) 37 mg/dL (70-99) White Blood Count 9.9 x10^3/uL (4.0-11.0) Red Blood Count 2.76 x10^6/uL (4.30-5.70) Hemoglobin 8.0 g/dL (13.0-17.5) Hematocrit 24.2 % (39.0-53.0) Mean Corpuscular Volume 88 fL (79-100) Mean Corpuscular Hemoglobin 29 pg (25-35) Mean Corpuscular Hemoglobin Concent 33 g/dL (31-37) Red Cell Distribution Width 17.1 % (11.5-14.5) Platelet Count 435 x10^3/uL (140-400) Neutrophils (%) (Auto) 70 % (31-73) Lymphocytes (%) (Auto) 17 % (24-48) Monocytes (%) (Auto) 12 % (0-9) Eosinophils (%) (Auto) 1 % (0-3) Basophils (%) (Auto) 1 % (0-3) Neutrophils # (Auto) 6.9 x10^3uL (1.8-7.7) Lymphocytes # (Auto) 1.7 x10^3/uL (1.0-4.8) Monocytes # (Auto) 1.1 x10^3/uL (0.0-1.1) Eosinophils # (Auto) 0.1 x10^3/uL (0.0-0.7) Basophils # (Auto) 0.1 x10^3/uL (0.0-0.2) Reticulocyte Count (auto) 1.9 % (0.5-2.5) Prothrombin Time 14.9 SEC (11.7-14.0) Prothromb Time International Ratio 1.2 (0.8-1.1) Sodium Level 137 mmol/L (136-145) Potassium Level 3.8 mmol/L (3.5-5.1) Chloride Level 100 mmol/L (98-107) Carbon Dioxide Level 23 mmol/L (21-32) Anion Gap 14 (6-14) Blood Urea Nitrogen 46 mg/dL (8-26) Creatinine 2.7 mg/dL (0.7-1.3) Estimated GFR (Cockcroft-Gault) 28.1 Glucose Level 18 mg/dL (70-99) Calcium Level 8.6 mg/dL (8.5-10.1) Magnesium Level 2.3 mg/dL (1.8-2.4) Iron Level 43 ug/dL (65-175) Total Iron Binding Capacity 294 ug/dL (250-450) Iron Saturation 15 % (15-34) Ferritin 1547 ng/mL (26-388) Total Bilirubin 0.3 mg/dL (0.2-1.0) Direct Bilirubin 0.2 mg/dL (0.0-0.2) Aspartate Amino Transf (AST/SGOT) 21 U/L (15-37) Alanine Aminotransferase (ALT/SGPT) 22 U/L (16-63) Alkaline Phosphatase 92 U/L (46-116) Creatine Kinase 62 U/L (39-308) Creatine Kinase MB (Mass) 1.1 ng/mL (0.0-3.6) Creatine Kinase MB Relative Index 1.8 % (0-4) Troponin I Quantitative 0.132 ng/mL (0.000-0.055) QY-Coe-N-Type Natriuretic Peptide > 01701 pg/mL (0-124) Total Protein 6.9 g/dL (6.4-8.2) Albumin 2.5 g/dL (3.4-5.0) Lipase 61 U/L (73-393) Thyroid Stimulating Hormone (TSH) 2.045 uIU/mL (0.358-3.74) Test 09/22/16 12:54 09/22/16 13:10 09/22/16 13:15 09/22/16 13:30 Glucose (Fingerstick) 39 mg/dL (70-99) Lactic Acid Level 2.0 mmol/L (0.4-2.0) Urine Collection Type Unknown Urine Color Yellow Urine Clarity Clear Urine pH 5.0 Urine Specific [place] 1.015 Urine Protein 228.4 mg/dL (Not Estab.) Urine Glucose (UA) Negative mg/dL (NEG) Urine Ketones (Stick) Negative mg/dL (NEG) Urine Blood Trace (NEG) Urine Nitrite Negative (NEG) Urine Bilirubin Negative (NEG) Urine Urobilinogen Dipstick 1.0 mg/dL (0.2 mg/dL) Urine Leukocyte Esterase Negative (NEG) Urine RBC 6-10 /HPF (0-2) Urine WBC 1-4 /HPF (0-4) Urine Squamous Epithelial Cells Mod /LPF Urine Bacteria 0 /HPF (0-FEW) Urine Hyaline Casts Few /HPF Urine Mucus Mod /LPF Urine Creatinine 108.2 mg/dL (Not Estab.) Urine Protein/Creatinine Ratio 2111 mg/g creat (0-200) Nasal Screen MRSA (PCR) Negative (Negative) Test 09/22/16 13:39 09/22/16 14:09 09/22/16 15:22 09/22/16 17:25 Glucose (Fingerstick) 58 mg/dL (70-99) 105 mg/dL (70-99) 136 mg/dL (70-99) 148 mg/dL (70-99) Test 09/22/16 19:00 09/22/16 20:58 09/23/16 00:45 09/23/16 04:35 Troponin I Quantitative 0.192 ng/mL (0.000-0.055) 0.192 ng/mL (0.000-0.055) Glucose (Fingerstick) 166 mg/dL (70-99) White Blood Count 7.5 x10^3/uL (4.0-11.0) Red Blood Count 2.69 x10^6/uL (4.30-5.70) Hemoglobin 7.6 g/dL (13.0-17.5) Hematocrit 23.6 % (39.0-53.0) Mean Corpuscular Volume 88 fL (79-100) Mean Corpuscular Hemoglobin 28 pg (25-35) Mean Corpuscular Hemoglobin Concent 32 g/dL (31-37) Red Cell Distribution Width 16.5 % (11.5-14.5) Platelet Count 387 x10^3/uL (140-400) Neutrophils (%) (Auto) 69 % (31-73) Lymphocytes (%) (Auto) 20 % (24-48) Monocytes (%) (Auto) 10 % (0-9) Eosinophils (%) (Auto) 1 % (0-3) Basophils (%) (Auto) 1 % (0-3) Neutrophils # (Auto) 5.2 x10^3uL (1.8-7.7) Lymphocytes # (Auto) 1.5 x10^3/uL (1.0-4.8) Monocytes # (Auto) 0.7 x10^3/uL (0.0-1.1) Eosinophils # (Auto) 0.1 x10^3/uL (0.0-0.7) Basophils # (Auto) 0.0 x10^3/uL (0.0-0.2) Sodium Level 135 mmol/L (136-145) Potassium Level 4.8 mmol/L (3.5-5.1) Chloride Level 100 mmol/L (98-107) Carbon Dioxide Level 23 mmol/L (21-32) Anion Gap 12 (6-14) Blood Urea Nitrogen 45 mg/dL (8-26) Creatinine 2.7 mg/dL (0.7-1.3) Estimated GFR (Cockcroft-Gault) 28.1 Glucose Level 158 mg/dL (70-99) Calcium Level 8.5 mg/dL (8.5-10.1) Phosphorus Level 4.8 mg/dL (2.6-4.7) Magnesium Level 2.0 mg/dL (1.8-2.4) Creatine Kinase 67 U/L (39-308) Albumin 2.3 g/dL (3.4-5.0) Cortisol AM Sample 25.3 ug/dL (6.2-19.4) Test 09/23/16 08:00 09/23/16 08:22 09/23/16 11:39 09/23/16 17:09 O2 Saturation 95 % (92-99) Arterial Blood pH 7.39 (7.35-7.45) Arterial Blood pCO2 at Patient Temp 34 mmHg (35-46) Arterial Blood pO2 at Patient Temp 88 mmHg (65-108) Arterial Blood HCO3 20 mmol/L (21-28) Arterial Blood Base Excess -4 mmol/L (-3-3) FiO2 36 Glucose (Fingerstick) 175 mg/dL (70-99) 242 mg/dL (70-99) 301 mg/dL (70-99) Test 09/23/16 19:19 09/23/16 21:00 09/24/16 04:00 09/24/16 08:16 Glucose (Fingerstick) 327 mg/dL (70-99) 204 mg/dL (70-99) Urine Opiates Screen Neg (NEG) Urine Methadone Screen Neg (NEG) Urine Barbiturates Neg (NEG) Urine Phencyclidine Screen Neg (NEG) Urine Amphetamine/Methamphetamine Neg (NEG) Urine Benzodiazepines Screen Neg (NEG) Urine Cocaine Screen Neg (NEG) Urine Cannabinoids Screen Neg (NEG) Urine Ethyl Alcohol Neg (NEG) Sodium Level 133 mmol/L (136-145) Potassium Level 5.0 mmol/L (3.5-5.1) Chloride Level 98 mmol/L (98-107) Carbon Dioxide Level 24 mmol/L (21-32) Anion Gap 11 (6-14) Blood Urea Nitrogen 59 mg/dL (8-26) Creatinine 3.0 mg/dL (0.7-1.3) Estimated GFR (Cockcroft-Gault) 24.9 Glucose Level 223 mg/dL (70-99) Calcium Level 8.8 mg/dL (8.5-10.1) Phosphorus Level 5.1 mg/dL (2.6-4.7) Magnesium Level 2.2 mg/dL (1.8-2.4) Creatine Kinase 67 U/L (39-308) Albumin 2.6 g/dL (3.4-5.0) Laboratory Tests Test 09/23/16 11:39 09/23/16 17:09 09/23/16 19:19 09/23/16 21:00 Glucose (Fingerstick) 242 mg/dL (70-99) 301 mg/dL (70-99) 327 mg/dL (70-99) Urine Opiates Screen Neg (NEG) Urine Methadone Screen Neg (NEG) Urine Barbiturates Neg (NEG) Urine Phencyclidine Screen Neg (NEG) Urine Amphetamine/Methamphetamine Neg (NEG) Urine Benzodiazepines Screen Neg (NEG) Urine Cocaine Screen Neg (NEG) Urine Cannabinoids Screen Neg (NEG) Urine Ethyl Alcohol Neg (NEG) Test 09/24/16 04:00 09/24/16 08:16 Sodium Level 133 mmol/L (136-145) Potassium Level 5.0 mmol/L (3.5-5.1) Chloride Level 98 mmol/L (98-107) Carbon Dioxide Level 24 mmol/L (21-32) Anion Gap 11 (6-14) Blood Urea Nitrogen 59 mg/dL (8-26) Creatinine 3.0 mg/dL (0.7-1.3) Estimated GFR (Cockcroft-Gault) 24.9 Glucose Level 223 mg/dL (70-99) Calcium Level 8.8 mg/dL (8.5-10.1) Phosphorus Level 5.1 mg/dL (2.6-4.7) Magnesium Level 2.2 mg/dL (1.8-2.4) Creatine Kinase 67 U/L (39-308) Albumin 2.6 g/dL (3.4-5.0) Glucose (Fingerstick) 204 mg/dL (70-99) Medications Active Scripts Medications Dose Route/Sig Max Daily Dose Days Date Category Levofloxacin 750 Mg Tablet 1 Tab PO DAILY 09/21/16 Rx Percocet 5-325 Mg Tablet (Oxycodone/Acetaminophen) 1 Each Tablet 1 Tab PO PRN Q6HRS PRN 07/30/16 Reported Advair 100-50 Diskus (Fluticasone/Salmeterol) 1 Each Disk.w.dev 1 Puff IH BID 06/21/16 Reported Spiriva Respimat (Tiotropium Ponderosa) 4 Gm Mist.inhal 2.5 Gm IH DAILY 06/21/16 Reported Symbicort 160-4.5 Mcg Inhaler (Budesonide/Formoterol Fumarate) 10.2 Gm Hfa.aer.ad 2 Puff IH BID 06/21/16 Reported Atorvastatin Calcium 20 Mg Tablet 20 Mg PO HS 06/21/16 Reported Lisinopril-Hctz 10-12.5 Mg Tab (Lisinopril/Hydrochlorothiazide) 1 Each Tablet 1 Tab PO DAILY 06/21/16 Reported Isosorbide Mononitrate Er (Isosorbide Mononitrate) 120 Mg Tab.er.24h 120 Mg PO DAILY 06/21/16 Reported Levemir Flextouch (Insulin Detemir) 100 Unit/1 Ml Insuln.pen 20 Units SQ QHS 30 11/24/15 Rx Novolog Flexpen (Insulin Aspart) 100 Unit/1 Ml Insuln.pen 10 Units SQ TIDAC 30 11/24/15 Rx Novolin N (Nph, Human Insulin Isophane) 100 Unit/1 Ml Vial 0 SQ 11/18/15 Reported Promethazine-Codeine Syrup (Promethazine Hcl/Codeine) 118 Ml Syrup 5 Ml PO Q4-6HRS 11/18/15 Reported Diltiazem 24HR Cd (Diltiazem Hcl) 240 Mg Cap.er.24h 240 Mg PO DAILY 11/18/15 Reported NITROGLYCERIN SubLingual (Nitroglycerin) 0.4 Mg Tab.subl 0.4 Mg SL PRN Q5MIN PRN 11/18/15 Reported Atorvastatin Calcium 40 Mg Tablet 40 Mg PO HS 11/18/15 Reported Impression . 1. Acute encephalopathy secondary to severe hypoglycemia, now completely resolved. The mental status has improved. 2. History of chronic obstructive airway disease, clinically compensated. 3. History of extensive pulmonary embolism, resulting in shock in June. Status post treatment with anticoagulation Xarelto with last CT angiogram done on 2016 has shown resolution of pulmonary embolism.He is s/p IVC filter. 3 Months of AC was recommended. off now 4. History of IVC filter placement in June. 5. 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 6. Abnormal CXR with mild CHF 7. renal failure, worse Plan . 1. Hold further lasix 2. Continue present nasal cannula. 3. Monitor blood sugars closely. 4. Management of diabetes per PCP. 5. Monitor hemoglobin closely. 6. Discussed with RN. 7. Pt has resolution of PE by last CT. s/p treatment with Xarelto.Not the best candidate for longterm AC. no further AC IVANA COX MD Sep 24, 2016 09:48
[2016-09-24] MEDS ORDERED: FUROSEMIDE 40 MG/4 ML VIAL. IVP ONE (11:00)
--- NOTE | 2016-09-24 11:06 | PDOC ---
SUBJECTIVE ROS BASIM not feeling too Good. Left flank pain, SOB CVS: min Orthopnea, no CP RESP: + SOB, + CUELLAR GI: no Nausea, no Vomiting : no Dysuria, no Urgency OBJECTIVE Vital Signs Vital Signs Date Time Temp Pulse Resp B/P (MAP) Pulse Ox O2 Delivery O2 Flow Rate FiO2 09/24/16 08:09 84 147/93 09/24/16 08:00 Nasal Cannula 3.0 09/24/16 07:59 97.7 20 99 97.7 I & 0 Intake and Output 09/24/16 07:00 Intake Total 460 ml Output Total 825 ml Balance -365 ml Intake Oral 460 ml Output Urine Total 825 ml # Voids 1 # Bowel Movements 1 PHYSICAL EXAM Physical Exam General Appearance: Awake Alert Oriented x 2 In no Distress; dysphonic Eyes: VIsion Unchanged Conjunctiva Normal EN: No EN Drainage Mucous Memb. moist; Poor Dentition Neck: ? JVD + JVP Supple no Thyromegaly CVS: S1 S2 ? Murmur No Gallop No Rub no Edema Resp: no Rales no Rhonchi no Acc. Muscle use; dec AE kassy GI: BS +ve NO Bruit Non Tender Non Distended : no CVA tenderness; no Suprapubic Tenderness SKIN: no Rashes Breast Exam deferred Mu.Sk: Adequate ROM (Pain with movt of left lwoer ext) min Muscle Atrophy Heme: Unable to palpate Obvious LAD no palp Splenomegaly NEURO: Good Strength and Tone Cranial Nerves II - XII grossly intact Psych: not Depressed no Active hallucination Assessment & Plan BASIM - (? ATN too) R/o AU with morton placement. Doubt hypoglycemic Sz per se since CK is WNL. May need HD if unable to optimize resp status with IV lasix. Will re-evaluate for Dialysis in am . Basleine Creat is 1.1 in July. Not sure if pt was restarted on ADAN-i as noted on OP Meds as documented. Checking C3 ,C4 to r/o Chol Emboli to Left kdiney given left flank pain H/o Rt DIGNA in June - ? Worsening of same (although not kassy) may be contributing to some of his SOB, Fluid retention and HTN. Will need Renal angio with AFR Pulm edema on CXR - EF 70% previously; ? due to DIGNA. Will discuss with Dr Sergio daniel lasix vs watch (Stat CXR ordered for reval) Oliguria - may need lasix/ Dialysis PVD in the past, now with hip and Knee pain - AFR later today. Discussed with Pt re high risk of CAN with angio and need for HD. He feels that some needs to be done soon. This will facilitate eval of DIGNA also and intervention may help alleviate some of his SOB if found to have DIGNA. CO2 angio as much as possible Hypoalbuminemia - Proteinuria noted - 2gms by ratio Proteinuria as noted on UA - 2gms by ratio Anemia: Iron is low but ferritin is ^ so no IVFe for now Sev HTN:(? Renovascular) Current BP meds reviewed. See orders for changes. ? Add Aldactone for RAAS Blockade since we cant use ADAN-i/ ARB given previous Angioedema. check for DIGNA worsening SOB - D/c IVF in setting of Pulm edema on CXR and one time lasix to help lay flat for Angio Urinary freq and urgency - check PVR - ? URO help Discussed Plan of Care and prognosis etc. at length with family. COMMENT/RELEVANT DATA Meds Current Medications Medications (Trade) Dose Ordered Sig/Ann Marie Start Time Stop Time Status Last Admin Dose Admin Albuterol/ Ipratropium (Duoneb) 3 ml RTQID 09/23/16 12:00 09/23/16 12:56 DC Amlodipine Besylate (Norvasc) 10 mg DAILY 09/23/16 09:00 UNV Atorvastatin Calcium (Lipitor) 40 mg HS 09/22/16 21:00 09/23/16 20:40 40 MG Benzonatate (Tessalon Perle) 100 mg [id number] 09/23/16 09:30 09/24/16 08:08 100 MG Budesonide (Pulmicort) 0.5 mg RTBID 09/22/16 20:00 09/24/16 07:24 0.5 MG Dextrose (Dextrose 50%-Water Syringe) 12.5 gm PRN Q15MIN PRN 09/23/16 09:30 09/23/16 12:56 DC Diltiazem HCl (Cardizem 24hr Cd) 240 mg DAILY 09/22/16 15:00 09/24/16 08:07 240 MG Furosemide (Lasix) 20 mg 1X ONCE 09/23/16 17:30 09/23/16 17:31 DC 09/23/16 17:30 20 MG Insulin Aspart (NovoLOG) 0-9 UNITS TIDWMEALS 09/23/16 12:00 09/24/16 08:20 2 UNITS Isosorbide Mononitrate (Imdur) 120 mg DAILY 09/22/16 15:00 09/24/16 08:09 120 MG Labetalol HCl (Normodyne) 20 mg PRN Q2HR PRN 09/22/16 14:15 09/22/16 15:19 20 MG Levofloxacin/ Dextrose 150 ml @ 100 mls/hr Q48H 09/22/16 13:00 09/22/16 13:10 100 MLS/HR Levofloxacin/ Dextrose (Levaquin Per Pharmacy) 1 each PRN DAILY PRN 09/22/16 12:45 Magnesium Sulfate/ Dextrose 50 ml @ 25 mls/hr PRN DAILY PRN 09/22/16 15:45 Nitroglycerin (Nitrostat) 0.4 mg PRN Q5MIN PRN 09/22/16 12:00 09/24/16 03:18 0.4 MG Ondansetron HCl (Zofran) 4 mg PRN Q8HRS PRN 09/22/16 12:30 09/23/16 12:29 DC Prednisone (Prednisone) 60 mg 1X ONCE 09/23/16 09:30 09/23/16 09:31 DC 09/23/16 10:00 60 MG Sodium Chloride 1,000 ml @ 100 mls/hr Q10H 09/22/16 15:45 09/23/16 07:45 DC 09/23/16 01:35 100 MLS/HR Lab Laboratory Tests Test 09/23/16 11:39 09/23/16 17:09 09/23/16 19:19 09/23/16 21:00 Glucose (Fingerstick) 242 mg/dL (70-99) 301 mg/dL (70-99) 327 mg/dL (70-99) Urine Opiates Screen Neg (NEG) Urine Methadone Screen Neg (NEG) Urine Barbiturates Neg (NEG) Urine Phencyclidine Screen Neg (NEG) Urine Amphetamine/Methamphetamine Neg (NEG) Urine Benzodiazepines Screen Neg (NEG) Urine Cocaine Screen Neg (NEG) Urine Cannabinoids Screen Neg (NEG) Urine Ethyl Alcohol Neg (NEG) Test 09/24/16 04:00 09/24/16 08:16 Sodium Level 133 mmol/L (136-145) Potassium Level 5.0 mmol/L (3.5-5.1) Chloride Level 98 mmol/L (98-107) Carbon Dioxide Level 24 mmol/L (21-32) Anion Gap 11 (6-14) Blood Urea Nitrogen 59 mg/dL (8-26) Creatinine 3.0 mg/dL (0.7-1.3) Estimated GFR (Cockcroft-Gault) 24.9 Glucose Level 223 mg/dL (70-99) Calcium Level 8.8 mg/dL (8.5-10.1) Phosphorus Level 5.1 mg/dL (2.6-4.7) Magnesium Level 2.2 mg/dL (1.8-2.4) Creatine Kinase 67 U/L (39-308) Albumin 2.6 g/dL (3.4-5.0) Glucose (Fingerstick) 204 mg/dL (70-99) FELIBERTO GIL MD Sep 24, 2016 11:06
--- NOTE | 2016-09-24 11:17 | PDOC ---
Provider Note Provider Note Vascular Surgery Patient resting in chair. VSS Gen - alert and responsive Left leg - palpable femoral pulse, no pedal pulses palpable, foot wound stable A/P: PVD with left foot ulcers - Recommend angiogram for endovascular revascularization or for planning for open surgery - the creatinine increased from 2.7 to 3.0, renal is following and if likely to improve then hold off on the angiogram because of risk of contrast nephropathy and renal failure - Limit the constrast with CO2 angiogram - Once the angiogram is completed, will review for further recommendations SHAWN BANUELOS MD Sep 24, 2016 11:17
[2016-09-24] MEDS ORDERED: MIDAZOLAM HCL/PF 5 MG/5 ML VIAL. ONE (12:12)
[2016-09-24] MEDS ORDERED: fentaNYL PF VIAL 250 MCG/5 ML VIAL ONE (12:12)
[2016-09-24] MEDS ORDERED: IOHEXOL 300 MG/ML 100ML VIAL. ONE (12:12)
[2016-09-24] MEDS ORDERED: LIDOCAINE 1% / SOD BICARB 8.4% 20 ML VIAL. IJ ONE ×2 (12:12→14:00)
[2016-09-24] MEDS ORDERED: HEPARIN for ARTERIAL LINE 2,000 ML ONE (12:13)
[2016-09-24] MEDS ORDERED: IODIXANOL 320 MG/ML 100 ML VIAL. ONE (12:13)
[2016-09-24] MEDS ORDERED: HEPARIN for IV BOLUS 10,000 UNIT/10 ML VIAL. ONE (12:15)
--- NOTE | 2016-09-24 12:20 | PDOC ---
ZARIATALA Mac UNDERWRITING DIRECTOR 09/24/16 1220: CARDIO Progress Notes Date and Time Date of Service 09/24/2016 Time of Evaluation 1220 Subjective Subjective: No Chest Pain, No Palpitations, Other (leg pain; dyspnea) Vitals Vitals Vital Signs Date Time Temp Pulse Resp B/P (MAP) Pulse Ox O2 Delivery O2 Flow Rate FiO2 09/24/16 10:59 Nasal Cannula 3.0 09/24/16 10:45 97.5 82 20 145/84 (104) 99 97.5 Weight Weight [ ] Input and Output Intake and Output Intake and Output 09/24/16 07:00 Intake Total 460 ml Output Total 825 ml Balance -365 ml Intake Oral 460 ml Output Urine Total 825 ml # Voids 1 # Bowel Movements 1 Laboratory Labs Laboratory Tests Test 09/23/16 17:09 09/23/16 19:19 09/23/16 21:00 09/24/16 04:00 Glucose (Fingerstick) 301 mg/dL (70-99) 327 mg/dL (70-99) Urine Opiates Screen Neg (NEG) Urine Methadone Screen Neg (NEG) Urine Barbiturates Neg (NEG) Urine Phencyclidine Screen Neg (NEG) Urine Amphetamine/Methamphetamine Neg (NEG) Urine Benzodiazepines Screen Neg (NEG) Urine Cocaine Screen Neg (NEG) Urine Cannabinoids Screen Neg (NEG) Urine Ethyl Alcohol Neg (NEG) Sodium Level 133 mmol/L (136-145) Potassium Level 5.0 mmol/L (3.5-5.1) Chloride Level 98 mmol/L (98-107) Carbon Dioxide Level 24 mmol/L (21-32) Anion Gap 11 (6-14) Blood Urea Nitrogen 59 mg/dL (8-26) Creatinine 3.0 mg/dL (0.7-1.3) Estimated GFR (Cockcroft-Gault) 24.9 Glucose Level 223 mg/dL (70-99) Calcium Level 8.8 mg/dL (8.5-10.1) Phosphorus Level 5.1 mg/dL (2.6-4.7) Magnesium Level 2.2 mg/dL (1.8-2.4) Creatine Kinase 67 U/L (39-308) Albumin 2.6 g/dL (3.4-5.0) Test 09/24/16 08:16 09/24/16 11:58 Glucose (Fingerstick) 204 mg/dL (70-99) 159 mg/dL (70-99) Microbiology Micro Microbiology 09/22/16 Blood Culture - Preliminary, Resulted NO GROWTH AFTER 1 DAY Physical Exam HEENT: Neck Supple W Full Motion Chest: Symmetric LUNGS: Other (diminished bases with scattered crackles ) Heart: S1S2, RRR, murmurs (soft systolic murmur) Abdomen: Soft N/T, Other (tenderness) Extremities: Other (1-2+ bilateral LE edema. DRSG intact to right foot ) Neurology: alert, follow commands Assessment Assessment 1. Elevated troponin in the setting of BASIM/CKD cath 06/2016 without significant findings 2. Acute on chronic diastolic CHF diuresis limited by renal function for dialysis catheter placement later today 3. Accelerated HTN improving control will benefit from HD 4. BASIM on CKD dialysis catheter placement later today 5. Acute on chronic respiratory failure 6. PAD for CO2 angio later today with vascular surgery 7. pulmonary embolus history OAC with Xarelto 8. hyperlipidemia continue statin therapy CLEO JUAREZ MD 09/24/16 [id number]: CARDIO Progress Notes Plan Plan Patient seen and examined. Agree with above nurse practitioner note. No acute events overnight. Patient underwent a angiography today and balloon angioplasty of his proximal SFA. He has significant below the knee disease. Medications at laboratory studies reviewed. On examination he is tachypneic with rhonchi and rales at the bilateral bases. Status post hemodialysis catheter. Currently hypertensive. We'll defer to nephrology with respect to timing of dialysis. Given his acute on chronic diastolic heart failure would recommend fluid removal if possible to dialysis or aggressive diuresis. Will follow along. TALA NECISO APRN Sep 24, 2016 12:20 CLEO JUAREZ MD Sep 24, 2016 18:53
--- NOTE | 2016-09-24 13:11 | PDOC ---
PROGRESS NOTES Chief Complaint Chief Complaint 1, Hypoglycemia with acute encephalopathy POA, resolved 2. 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 Mod PCM 4. High fall risk 5. CLaudication R>L 6. Gen weakness Old dx: 2. HX bilateral PE with cardiac arrest ([facility] 2016) sec to PE 3. CLean cardiac cath 4.Hx Non-occlusive thrombus, R leg (07/15) 5. COPD on home o2? exacerbation - wheezy 6. DM2; insulin requiring with HYPOGLYCEMIA 7. Hx Oliguric Hyperkalemic renal failure - stable 8 Dyslipidemia on statin 9. HX significant angioedema likely sec to ADAN inhib needing intubation (06/2016) History of Present Illness History of Present Illness Actually got a call from [facility] MD last week, asked me about the plans and his course when he was dcd here. Apparently [facility] dcd him and did not give Rxs? 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 Moderate atherosclerotic plaquing of the abdominal aorta and its branches. 2. Moderate atherosclerotic plaquing in the larger of the two right renal arteries with moderate underlying stenosis estimated at approximately 60% of the luminal diameter. 3. 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 4. Miscellaneous findings as described above including bilateral pleural effusions, pulmonary infiltrates, ascites and anasarca. PLAN: fu with card, pulm, renal will get HD cath today incase need HD fu with vascular , will need angiogram for bl lower ext for PAD cont current meds for HTN, add levemir 10u qhs, cont ssi dvt ppx no AC with h/o PE, but seems had DVT in 06/2016 Vitals Vitals Vital Signs Date Time Temp Pulse Resp B/P (MAP) Pulse Ox O2 Delivery O2 Flow Rate FiO2 09/24/16 10:59 Nasal Cannula 3.0 09/24/16 10:45 97.5 82 20 145/84 (104) 99 97.5 Physical Exam General: Alert, Oriented X3, Cooperative, mild distress Heart: Regular rate (Sinus tach), Normal S1, Normal S2, Other (3/6 systolic murmur to LLS border) Lungs: Other (bl decreased bs) Abdomen: Soft, No tenderness Extremities: No clubbing, No edema, Normal pulses Skin: No rashes Labs LABS Laboratory Tests Test 09/23/16 17:09 09/23/16 19:19 09/23/16 21:00 09/24/16 04:00 Glucose (Fingerstick) 301 mg/dL (70-99) 327 mg/dL (70-99) Urine Opiates Screen Neg (NEG) Urine Methadone Screen Neg (NEG) Urine Barbiturates Neg (NEG) Urine Phencyclidine Screen Neg (NEG) Urine Amphetamine/Methamphetamine Neg (NEG) Urine Benzodiazepines Screen Neg (NEG) Urine Cocaine Screen Neg (NEG) Urine Cannabinoids Screen Neg (NEG) Urine Ethyl Alcohol Neg (NEG) Sodium Level 133 mmol/L (136-145) Potassium Level 5.0 mmol/L (3.5-5.1) Chloride Level 98 mmol/L (98-107) Carbon Dioxide Level 24 mmol/L (21-32) Anion Gap 11 (6-14) Blood Urea Nitrogen 59 mg/dL (8-26) Creatinine 3.0 mg/dL (0.7-1.3) Estimated GFR (Cockcroft-Gault) 24.9 Glucose Level 223 mg/dL (70-99) Calcium Level 8.8 mg/dL (8.5-10.1) Phosphorus Level 5.1 mg/dL (2.6-4.7) Magnesium Level 2.2 mg/dL (1.8-2.4) Creatine Kinase 67 U/L (39-308) Albumin 2.6 g/dL (3.4-5.0) Test 09/24/16 08:16 09/24/16 11:58 Glucose (Fingerstick) 204 mg/dL (70-99) 159 mg/dL (70-99) Review of Systems Review of Systems no fever, chills, sob or chest pain Assessment and Plan Assessmemt and Plan Problems Medical Problems: (1) Hypoglycemia Status: Acute Problems: Comment Review of Relevant I have reviewed the following items valerie (where applicable) has been applied. Labs Laboratory Tests Test 09/22/16 13:10 09/22/16 13:15 09/22/16 13:30 09/22/16 13:39 Lactic Acid Level 2.0 mmol/L (0.4-2.0) Urine Collection Type Unknown Urine Color Yellow Urine Clarity Clear Urine pH 5.0 Urine Specific [place] 1.015 Urine Protein 228.4 mg/dL (Not Estab.) Urine Glucose (UA) Negative mg/dL (NEG) Urine Ketones (Stick) Negative mg/dL (NEG) Urine Blood Trace (NEG) Urine Nitrite Negative (NEG) Urine Bilirubin Negative (NEG) Urine Urobilinogen Dipstick 1.0 mg/dL (0.2 mg/dL) Urine Leukocyte Esterase Negative (NEG) Urine RBC 6-10 /HPF (0-2) Urine WBC 1-4 /HPF (0-4) Urine Squamous Epithelial Cells Mod /LPF Urine Bacteria 0 /HPF (0-FEW) Urine Hyaline Casts Few /HPF Urine Mucus Mod /LPF Urine Creatinine 108.2 mg/dL (Not Estab.) Urine Protein/Creatinine Ratio 2111 mg/g creat (0-200) Nasal Screen MRSA (PCR) Negative (Negative) Glucose (Fingerstick) 58 mg/dL (70-99) Test 09/22/16 14:09 09/22/16 15:22 09/22/16 17:25 09/22/16 19:00 Glucose (Fingerstick) 105 mg/dL (70-99) 136 mg/dL (70-99) 148 mg/dL (70-99) Troponin I Quantitative 0.192 ng/mL (0.000-0.055) Test 09/22/16 20:58 09/23/16 00:45 09/23/16 04:35 09/23/16 08:00 Glucose (Fingerstick) 166 mg/dL (70-99) Troponin I Quantitative 0.192 ng/mL (0.000-0.055) White Blood Count 7.5 x10^3/uL (4.0-11.0) Red Blood Count 2.69 x10^6/uL (4.30-5.70) Hemoglobin 7.6 g/dL (13.0-17.5) Hematocrit 23.6 % (39.0-53.0) Mean Corpuscular Volume 88 fL (79-100) Mean Corpuscular Hemoglobin 28 pg (25-35) Mean Corpuscular Hemoglobin Concent 32 g/dL (31-37) Red Cell Distribution Width 16.5 % (11.5-14.5) Platelet Count 387 x10^3/uL (140-400) Neutrophils (%) (Auto) 69 % (31-73) Lymphocytes (%) (Auto) 20 % (24-48) Monocytes (%) (Auto) 10 % (0-9) Eosinophils (%) (Auto) 1 % (0-3) Basophils (%) (Auto) 1 % (0-3) Neutrophils # (Auto) 5.2 x10^3uL (1.8-7.7) Lymphocytes # (Auto) 1.5 x10^3/uL (1.0-4.8) Monocytes # (Auto) 0.7 x10^3/uL (0.0-1.1) Eosinophils # (Auto) 0.1 x10^3/uL (0.0-0.7) Basophils # (Auto) 0.0 x10^3/uL (0.0-0.2) Sodium Level 135 mmol/L (136-145) Potassium Level 4.8 mmol/L (3.5-5.1) Chloride Level 100 mmol/L (98-107) Carbon Dioxide Level 23 mmol/L (21-32) Anion Gap 12 (6-14) Blood Urea Nitrogen 45 mg/dL (8-26) Creatinine 2.7 mg/dL (0.7-1.3) Estimated GFR (Cockcroft-Gault) 28.1 Glucose Level 158 mg/dL (70-99) Calcium Level 8.5 mg/dL (8.5-10.1) Phosphorus Level 4.8 mg/dL (2.6-4.7) Magnesium Level 2.0 mg/dL (1.8-2.4) Creatine Kinase 67 U/L (39-308) Albumin 2.3 g/dL (3.4-5.0) Cortisol AM Sample 25.3 ug/dL (6.2-19.4) O2 Saturation 95 % (92-99) Arterial Blood pH 7.39 (7.35-7.45) Arterial Blood pCO2 at Patient Temp 34 mmHg (35-46) Arterial Blood pO2 at Patient Temp 88 mmHg (65-108) Arterial Blood HCO3 20 mmol/L (21-28) Arterial Blood Base Excess -4 mmol/L (-3-3) FiO2 36 Test 09/23/16 08:22 09/23/16 11:39 09/23/16 17:09 09/23/16 19:19 Glucose (Fingerstick) 175 mg/dL (70-99) 242 mg/dL (70-99) 301 mg/dL (70-99) 327 mg/dL (70-99) Test 09/23/16 21:00 09/24/16 04:00 09/24/16 08:16 09/24/16 11:58 Urine Opiates Screen Neg (NEG) Urine Methadone Screen Neg (NEG) Urine Barbiturates Neg (NEG) Urine Phencyclidine Screen Neg (NEG) Urine Amphetamine/Methamphetamine Neg (NEG) Urine Benzodiazepines Screen Neg (NEG) Urine Cocaine Screen Neg (NEG) Urine Cannabinoids Screen Neg (NEG) Urine Ethyl Alcohol Neg (NEG) Sodium Level 133 mmol/L (136-145) Potassium Level 5.0 mmol/L (3.5-5.1) Chloride Level 98 mmol/L (98-107) Carbon Dioxide Level 24 mmol/L (21-32) Anion Gap 11 (6-14) Blood Urea Nitrogen 59 mg/dL (8-26) Creatinine 3.0 mg/dL (0.7-1.3) Estimated GFR (Cockcroft-Gault) 24.9 Glucose Level 223 mg/dL (70-99) Calcium Level 8.8 mg/dL (8.5-10.1) Phosphorus Level 5.1 mg/dL (2.6-4.7) Magnesium Level 2.2 mg/dL (1.8-2.4) Creatine Kinase 67 U/L (39-308) Albumin 2.6 g/dL (3.4-5.0) Glucose (Fingerstick) 204 mg/dL (70-99) 159 mg/dL (70-99) Laboratory Tests Test 09/23/16 17:09 09/23/16 19:19 09/23/16 21:00 09/24/16 04:00 Glucose (Fingerstick) 301 mg/dL (70-99) 327 mg/dL (70-99) Urine Opiates Screen Neg (NEG) Urine Methadone Screen Neg (NEG) Urine Barbiturates Neg (NEG) Urine Phencyclidine Screen Neg (NEG) Urine Amphetamine/Methamphetamine Neg (NEG) Urine Benzodiazepines Screen Neg (NEG) Urine Cocaine Screen Neg (NEG) Urine Cannabinoids Screen Neg (NEG) Urine Ethyl Alcohol Neg (NEG) Sodium Level 133 mmol/L (136-145) Potassium Level 5.0 mmol/L (3.5-5.1) Chloride Level 98 mmol/L (98-107) Carbon Dioxide Level 24 mmol/L (21-32) Anion Gap 11 (6-14) Blood Urea Nitrogen 59 mg/dL (8-26) Creatinine 3.0 mg/dL (0.7-1.3) Estimated GFR (Cockcroft-Gault) 24.9 Glucose Level 223 mg/dL (70-99) Calcium Level 8.8 mg/dL (8.5-10.1) Phosphorus Level 5.1 mg/dL (2.6-4.7) Magnesium Level 2.2 mg/dL (1.8-2.4) Creatine Kinase 67 U/L (39-308) Albumin 2.6 g/dL (3.4-5.0) Test 09/24/16 08:16 09/24/16 11:58 Glucose (Fingerstick) 204 mg/dL (70-99) 159 mg/dL (70-99) Microbiology 09/22/16 Blood Culture - Preliminary, Resulted NO GROWTH AFTER 1 DAY Medications Current Medications Dextrose (Dextrose 50%-Water Syringe) 25 gm STK-MED ONCE IV ; Start 09/22/16 at 10:39; Stop 09/22/16 at 10:40; Status DC Dextrose 500 ml @ 30 mls/hr 1X ONCE IV Last administered on 09/22/16 11:52; Start 09/22/16 at 11:45; Stop 09/22/16 at 17:38; Status DC Dextrose (Dextrose 50%-Water Syringe) 25 gm STK-MED ONCE IV ; Start 09/22/16 at 11:45; Stop 09/22/16 at 11:46; Status DC Dextrose (Dextrose 50%-Water Syringe) 25 gm 1X ONCE IV Last administered on 10:45; Start 09/22/16 at 12:00; Stop 09/22/16 at 12:01; Status DC Dextrose (Dextrose 50%-Water Syringe) 25 gm 1X ONCE IV Last administered on 11:40; Start 09/22/16 at 12:00; Stop 09/22/16 at 12:01; Status DC Nitroglycerin (Nitrostat) 0.4 mg PRN Q5MIN PRN SL CHEST PAIN Last administered on 09/24/16 03:18; Start 09/22/16 at 12:00 Ondansetron HCl (Zofran) 4 mg PRN Q8HRS PRN IV NAUSEA/VOMITING; Start 09/22/16 at 12:30; Stop 09/23/16 at 12:29; Status DC Levofloxacin/ Dextrose (Levaquin Per Pharmacy) 1 each PRN DAILY PRN MC SEE COMMENTS; Start 09/22/16 at 12:45 Levofloxacin/ Dextrose 150 ml @ 100 mls/hr Q48H IV Last administered on 13:10; Start 09/22/16 at 13:00 Sodium Chloride 500 ml @ 1,000 mls/hr 1X ONCE IV Last administered on 13:10; Start 09/22/16 at 13:15; Stop 09/22/16 at 13:44; Status DC Dextrose (Dextrose 50%-Water Syringe) 25 gm 1X ONCE IV Last administered on 13:11; Start 09/22/16 at 13:15; Stop 09/22/16 at 13:16; Status DC Insulin Aspart (NovoLOG) 0-5 UNITS TIDWMEALS SQ Last administered on 09/22/16 18:17; Start 09/22/16 at 17:00; Stop 09/23/16 at 09:23; Status DC Dextrose (Dextrose 50%-Water Syringe) 12.5 gm PRN Q15MIN PRN IV SEE COMMENTS Last administered on 09/22/16 13:58; Start 09/22/16 at 14:00 Labetalol HCl (Normodyne) 20 mg PRN Q2HR PRN IVP HYPERTENSION, SEE COMMENTS Last administered on 09/22/16 15:19; Start 09/22/16 at 14:15 Amlodipine Besylate (Norvasc) 10 mg DAILY PO ; Start 09/23/16 at 09:00; Status UNV Atorvastatin Calcium (Lipitor) 40 mg HS PO Last administered on 09/23/16 20:40 ; Start 09/22/16 at 21:00 Diltiazem HCl (Cardizem 24hr Cd) 240 mg DAILY PO Last administered on 09/24/16 08:07; Start 09/22/16 at 15:00 Isosorbide Mononitrate (Imdur) 120 mg DAILY PO Last administered on 09/24/16 08 :09; Start 09/22/16 at 15:00 Albuterol/ Ipratropium (Duoneb) 3 ml STK-MED ONCE .ROUTE ; Start 09/22/16 at 15: 06; Stop 09/22/16 at 15:07; Status DC Albuterol/ Ipratropium (Duoneb) 3 ml RTQID NEB Last administered on 09/24/16 10 :58; Start 09/22/16 at 16:00 Budesonide (Pulmicort) 0.5 mg RTBID NEB Last administered on 09/24/16 07:24; Start 09/22/16 at 20:00 Magnesium Sulfate/ Dextrose 50 ml @ 25 mls/hr PRN DAILY PRN IV for Mag < 1.7 on am labs; Start 09/22/16 at 15:45 Sodium Chloride 1,000 ml @ 100 mls/hr Q10H IV Last administered on 09/23/16 01 :35; Start 09/22/16 at 15:45; Stop 09/23/16 at 07:45; Status DC Dextrose 1,000 ml @ 50 mls/hr Q20H IV Last administered on 09/22/16 17:39; Start 09/22/16 at 17:45; Stop 09/23/16 at 07:45; Status DC Insulin Aspart (NovoLOG) 0-9 UNITS TIDWMEALS SQ Last administered on 09/24/16 08:20; Start 09/23/16 at 12:00 Dextrose (Dextrose 50%-Water Syringe) 12.5 gm PRN Q15MIN PRN IV SEE COMMENTS; Start 09/23/16 at 09:30; Stop 09/23/16 at 12:56; Status DC Albuterol/ Ipratropium (Duoneb) 3 ml RTQID NEB ; Start 09/23/16 at 12:00; Stop at 12:56; Status DC Prednisone (Prednisone) 60 mg 1X ONCE PO Last administered on 09/23/16 10:00; Start 09/23/16 at 09:30; Stop 09/23/16 at 09:31; Status DC Benzonatate (Tessalon Perle) 100 mg [id number] PO Last administered on 09/24/16 08: 08; Start 09/23/16 at 09:30 Furosemide (Lasix) 20 mg 1X ONCE IVP Last administered on 09/23/16 17:30; Start 09/23/16 at 17:30; Stop 09/23/16 at 17:31; Status DC Furosemide (Lasix) 80 mg 1X ONCE IVP ; Start 09/24/16 at 11:00; Stop 09/24/16 at 11:03; Status DC Acetylcysteine (Mucomyst 20% Oral Solution) 1,200 mg BID PO ; Start 09/24/16 at 11:30; Stop 09/26/16 at 11:29 Darbepoetin Arsh (Aranesp) 60 mcg WEEKLYHS SQ ; Start 09/24/16 at 21:00 Tramadol HCl (Ultram) 50 mg PRN Q6HRS PRN PO PAIN; Start 09/24/16 at 11:30 Iohexol (Omnipaque 300 Mg/ml) 100 ml STK-MED ONCE .ROUTE ; Start 09/24/16 at 12: 12; Stop 09/24/16 at 12:13; Status DC Lidocaine/Sodium Bicarbonate (Buffered Lidocaine 1%) 20 ml STK-MED ONCE IJ ; Start 09/24/16 at 12:12; Stop 09/24/16 at 12:13; Status DC Midazolam HCl (Versed) 5 mg STK-MED ONCE .ROUTE ; Start 09/24/16 at 12:12; Stop 09/24/16 at 12:13; Status DC Fentanyl Citrate (Fentanyl 5ml Vial) 250 mcg STK-MED ONCE .ROUTE ; Start at 12:12; Stop 09/24/16 at 12:13; Status DC Heparin Sodium/ Sodium Chloride 2,000 ml @ As Directed STK-MED ONCE .ROUTE ; Start 09/24/16 at 12:13; Stop 09/24/16 at 12:14; Status DC Iodixanol (Visipaque 320) 100 ml STK-MED ONCE .ROUTE ; Start 09/24/16 at 12:13; Stop 09/24/16 at 12:14; Status DC Heparin Sodium (Porcine) (Heparin Sodium) 10,000 unit STK-MED ONCE .ROUTE ; Start 09/24/16 at 12:15; Stop 09/24/16 at 12:16; Status DC Active Scripts Active Levofloxacin 750 Mg Tablet 1 Tab PO DAILY Levemir Flextouch (Insulin Detemir) 100 Unit/1 Ml Insuln.pen 20 Units SQ QHS 30 Days Novolog Flexpen (Insulin Aspart) 100 Unit/1 Ml Insuln.pen 10 Units SQ TIDAC 30 Days Reported Percocet 5-325 Mg Tablet (Oxycodone/Acetaminophen) 1 Each Tablet 1 Tab PO PRN Q6HRS PRN Advair 100-50 Diskus (Fluticasone/Salmeterol) 1 Each Disk.w.dev 1 Puff IH BID Spiriva Respimat (Tiotropium [place]) 4 Gm Mist.inhal 2.5 Gm IH DAILY Symbicort 160-4.5 Mcg Inhaler (Budesonide/Formoterol Fumarate) 10.2 Gm Hfa.aer.ad 2 Puff IH BID Atorvastatin Calcium 20 Mg Tablet 20 Mg PO HS Lisinopril-Hctz 10-12.5 Mg Tab (Lisinopril/Hydrochlorothiazide) 1 Each Tablet 1 Tab PO DAILY Isosorbide Mononitrate Er (Isosorbide Mononitrate) 120 Mg Tab.er.24h 120 Mg PO DAILY Novolin N (Nph, Human Insulin Isophane) 100 Unit/1 Ml Vial 0 SQ Promethazine-Codeine Syrup (Promethazine Hcl/Codeine) 118 Ml Syrup 5 Ml PO Q4- 6HRS Diltiazem 24HR Cd (Diltiazem Hcl) 240 Mg Cap.er.24h 240 Mg PO DAILY NITROGLYCERIN SubLingual (Nitroglycerin) 0.4 Mg Tab.subl 0.4 Mg SL PRN Q5MIN PRN Atorvastatin Calcium 40 Mg Tablet 40 Mg PO HS Vitals/I & O Vital Sign - Last 24 Hours 09/23/16 09/23/16 09/23/16 09/23/16 15:55 16:05 19:55 20:00 Temp 97.9 97.9 97.9 97.9 Pulse 92 94 Resp 26 18 B/P (MAP) 146/88 (107) 154/80 (104) Pulse Ox 98 99 O2 Delivery Nasal Cannula Nasal Cannula Nasal Cannula Nasal Cannula O2 Flow Rate 3.0 3.0 3.0 3.0 09/23/16 09/23/16 09/23/16 09/24/16 20:30 20:30 23:39 03:18 Temp 97.4 97.4 Pulse 94 94 Resp 22 B/P (MAP) 149/97 (114) 149/97 Pulse Ox 98 98 100 O2 Delivery Nasal Cannula Nasal Cannula Nasal Cannula O2 Flow Rate 3.0 3.0 3.0 09/24/16 09/24/16 09/24/16 09/24/16 03:35 07:25 07:59 08:00 Temp 97.7 97.7 97.7 97.7 Pulse 87 84 Resp 22 20 B/P (MAP) 148/98 (115) 147/93 (111) Pulse Ox 100 100 99 O2 Delivery Nasal Cannula Nasal Cannula Nasal Cannula Nasal Cannula O2 Flow Rate 2.0 3.0 2.0 3.0 09/24/16 09/24/16 09/24/16 09/24/16 08:07 08:09 10:45 10:59 Temp 97.5 97.5 Pulse 84 84 82 Resp 20 B/P (MAP) 147/93 147/93 145/84 (104) Pulse Ox 99 O2 Delivery Nasal Cannula Nasal Cannula O2 Flow Rate 2.0 3.0 Intake and Output 09/23/16 09/23/16 09/24/16 15:00 23:00 07:00 Intake Total 220 ml 240 ml Output Total 325 ml 500 ml Balance -105 ml 240 ml -500 ml JOHN PAUL BALDWIN MD Sep 24, 2016 13:11
[2016-09-24] MEDS ORDERED: IOHEXOL 300 MG/ML 100ML VIAL. IART ONE (14:00)
[2016-09-24] MEDS ORDERED: IODIXANOL 320 MG/ML 100 ML VIAL. IART ONE (14:00)
[2016-09-24] MEDS ORDERED: fentaNYL PF VIAL 250 MCG/5 ML VIAL IV ONE (14:00)
[2016-09-24] MEDS ORDERED: MIDAZOLAM HCL/PF 5 MG/5 ML VIAL. IV ONE (14:00)
[2016-09-24] MEDS ORDERED: HEPARIN for IV BOLUS 10,000 UNIT/10 ML VIAL. IV ONE (14:00)
[2016-09-24] MEDS ORDERED: CONTRAST GIVEN MC PRN (14:15)
[2016-09-24] MEDS ORDERED: CLOPIDOGREL BISULFATE 75 MG TABLET PO ONE (15:30)
--- NOTE | 2016-09-24 15:31 | PDOC ---
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 BASIM with encephalopathy and proteinuria. No Peripheral IV access. Post-Procedure Diagnosis Post-Procedure Diagnosis No significant DIGNA. No AAA,. No significant SHANTEL or EIA stenosis---rt SHANTEL fusiform ectasia---rt hypo occlusion. 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 Scattered rt SFA-pop lesions, including 60% prox SFA lesion, treated with DCB INCOME TAX ADJUSTER. Marked tibial trifurcation occlusive disease---No in-line distal r/o---Distal AT reconstituted just above ankle, then patent thru DP and plantar arch. Procedure Performed Procedure Performed Sono/fluoro guided insertion of triple lumen temp HDC, for IV access and for possible HD. Limited abdominal aortogram to exclude significant DIGNA. Selective rt lower extremity angio. DCB INCOME TAX ADJUSTER proximal rt SFA 60% stenosis. Type of Anesthesia Type of Anesthesia Local only Estimated Blood Loss EBL: 25 cc Condition of Patient Condition of Patient No apparent complication. Hemodynamically stable. Disposition Disposition From IR return to [facility] for recovery. F/u with HIMS, Renal, and Vascular Surgery. OK to use 3L temp HDC for HD, BASTING CLEANER, blood draws, and infusions. Full report to follow. VINNY ORTIZ MD Sep 24, 2016 15:31
[2016-09-24] MEDS: ACETYLCYSTEINE 20% ORAL SOLN 600 MG/3 ML SYRINGE. PO SCH ×2 (16:06→20:22)
--- NOTE | 2016-09-24 16:31 | RAD ---
Ultrasound and fluoroscopy guided insertion of triple-lumen Trialysis temporary hemodialysis catheter Indication: 76-year-old male with no peripheral IV access and with acute kidney injury requiring hemodialysis. Image guided insertion of a triple-lumen temporary dialysis catheter has been requested by renal. Fluoroscopy time: 0.1 minute Kerma-area product: 1 Gycm2 Anesthesia: Local only Sterility: All elements of maximal sterile barrier technique, hand hygiene, skin preparation, and, if ultrasound was used, sterile ultrasound technique were followed. Procedure: Informed consent was obtained from the patient. He was placed supine on the angiography table. Preliminary ultrasound examination of right neck revealed wide patency of right internal jugular vein, which was documented with a single hard copy ultrasound image. Right neck was then prepped and draped in the usual sterile fashion, utilizing all elements of maximal sterile barrier technique, as described above. Using aseptic technique and local anesthesia, a small skin incision was made lateral to right internal jugular vein, just above clavicle. Using aseptic technique, local anesthesia, and direct sterile ultrasound guidance, a small micropuncture sheath was successfully introduced through the supraclavicular dermatotomy into right internal jugular vein. The micropuncture sheath was then removed over a guidewire. The percutaneous tract was dilated and a 13 [place] triple lumen 20 cm Trialysis temporary hemodialysis catheter was easily advanced centrally to the level of upper right atrium under fluoroscopic guidance. All three lumens of the dialysis catheter were documented to flush and aspirate normally. The two dialysis catheter lumens were packed with heparin. The Trialysis catheter was then secured at the skin exit site utilizing suture and sterile dressing. Patient tolerated the procedure well without apparent complication. Satisfactory position of the triple-lumen temporary dialysis catheter was confirmed with a single fluoroscopic spot image. Impression: Successful, uneventful ultrasound and fluoroscopy guided insertion of a right IJ 13 [place] triple lumen 20 cm Trialysis temporary hemodialysis catheter, as described.
--- NOTE | 2016-09-24 17:20 | RAD ---
Abdominal aortogram with selective right lower extremity arteriogram [employer] proximal right SFA stenosis Indication: 76-year-old male with diabetes, COPD with pulmonary hypertension, severe systemic hypertension, nonpalpable pedal pulses, right foot ulcerations, and acute kidney injury with elevated creatinine, despite aggressive IV hydration. Abnormal noninvasive study done yesterday suggested severe right tibial occlusive disease. [facility] CTA abdomen and pelvis from 07/28/2016 raise the question of renal artery stenosis, in this patient with severe hypertension and renal insufficiency. Abdominal aortogram, with limited iodinated contrast material, has been requested to confirm or exclude renal artery stenosis. Selective right lower extremity arteriogram has been requested to confirm expected severe tibial occlusive disease, with possible endovascular treatment. Fluoroscopy time: 13.1 minutes Kerma-area Product: 115 Gycm2 Contrast material: CO2. 15 cc Omnipaque 300. 38 cc Visipaque 320. Anesthesia: Local only. Sterility: All elements of maximal sterile barrier technique, hand hygiene, skin preparation, and, if ultrasound was used, sterile ultrasound technique were followed. Comparison study: [facility] CTA abdomen and pelvis from 07/28/2016. Procedure: Informed consent was obtained from the patient. He was placed supine on the angiography table. Preliminary ultrasound examination of left groin revealed wide patency of left common femoral artery, which was documented with a single hard copy ultrasound image. Left groin was then prepped and draped in the usual sterile fashion, utilizing all elements of maximal sterile barrier technique, as described above. Using aseptic technique, local anesthesia, direct sterile ultrasound guidance, and the micropuncture system, a 5 [place] left common femoral artery sheath was successfully introduced. Abdominal aortogram: A 5 [place] Omni Flush catheter was advanced through the left groin sheath into suprarenal abdominal aorta. 15 cc of Omnipaque 300 was injected and abdominal aortogram DSA images were obtained. Findings: Single left main renal artery is partially obscured by an overlying upper left lumbar artery, but appears widely patent and identical to that on the prior CTA. There are 2 right renal arteries. The larger, more superior right renal artery shows minor atherosclerotic irregularity, without flow-limiting stenosis. The more inferior accessory right renal artery is generally small in caliber, without localized flow-limiting lesion. Infrarenal abdominal aorta shows atherosclerotic calcification and ectasia, without significant stricture and without aneurysmal dilatation. Right common iliac artery shows mild distal ectasia-aneurysmal dilatation. Left common iliac artery shows lesser ectasia, with atherosclerotic plaquing, but without significant stenosis. Right hypogastric artery is occluded at its origin. Left hypogastric artery is patent, with moderate proximal stenosis. Visualized proximal segments of external iliac arteries appear widely patent, bilaterally. Selective right lower extremity arteriogram: The Omni Flush catheter was exchanged for a 0.035 inch quick cross catheter, which was advanced across aortic bifurcation over a Glidewire and was initially positioned within contralateral right common femoral artery. CO2 was injected and DSA images were obtained over right groin and proximal thigh in the GONZALES projection, utilizing CO2 stacking technique. The quick cross catheter was then advanced into proximal right SFA. Dilute Visipaque was injected and DSA images were obtained from proximal to distal thigh. The quick cross catheter was then further advanced into distal right SFA. Dilute Visipaque was injected and DSA images were obtained from abductor canal through the knee joint. The quick cross catheter was then further advanced into mid right popliteal artery. Dilute Visipaque was again injected and DSA images were obtained from knee through foot. Findings: Right common femoral artery and deep femoral artery appear widely patent. There are multifocal areas of mild calcific narrowing within right SFA-popliteal segment. 2 more significant focal lesions measure on the order of 60%, and lie within proximal right SFA and within right popliteal artery immediately above the knee joint. Right anterior tibial artery is occluded proximally. Tibioperoneal trunk is patent, with origin occlusion of posterior tibial artery. Peroneal artery is severely and diffusely diseased at proximal and mid calf, followed by segmental occlusion at distal calf. Delayed images over right foot revealed reconstitution of distal anterior tibial artery commencing approximately 3 cm above ankle joint. The reconstituted anterior tibial artery appears widely patent through dorsalis pedis artery and plantar arch. Delayed images over right foot also revealed reconstitution of most distal right posterior tibial artery, followed by small caliber, diffusely diseased, segmentally occluded plantar arteries. [employer] proximal right SFA stenosis: Given this patient's right foot ischemic ulcers, the decision was made to proceed with balloon dilatation of the focal 60% proximal SFA stenosis. The quick cross catheter, previously positioned within right popliteal artery was removed over a [facility] advantage guidewire. The 5 [place] left groin sheath was exchanged for a 6 [place] Ottoniel sheath, which was advanced over the advantage wire across aortic bifurcation into the most proximal right SFA. Following IV bolus administration of heparin, a 6 mm x 20 mm Cordis Powerflex [employer] balloon was advanced over the advantage wire through the Ottoniel sheath and was carefully positioned across the proximal right SFA stenosis, utilizing magnification fluoroscopic guidance and road mapping technique. The Powerflex [employer] balloon was then utilized to perform prolonged (5 minutes) balloon dilatation of the lesion to a peak pressure of 10 destiney. The Powerflex balloon was then deflated and removed. A 6 mm x 40 mm [employer]'s Admiral paclitaxel-coated [employer] balloon was then advanced through the Ancel sheath over the advantage wire and was inflated across the proximal SFA lesion to a peak pressure of 6 destiney for 3 minutes. The drug coated balloon was then deflated and removed. Dilute Visipaque was injected through the Ottoniel sheath and post angioplasty DSA images were obtained. Those images revealed significant angiographic improvement, with approximately 20-30% residual stenosis, and without complicating dissection or thrombosis. Patient tolerated the procedures well without apparent complication. The Ottoniel sheath was removed at the left groin puncture site, and hemostasis was achieved utilizing the Angio-Seal system. Impression: 1. No hemodynamically significant renal artery stenosis. 2. 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 3. 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 4. Widely patent right profunda. 5. Multifocal mild SFA-popliteal calcific stenoses. 60% proximal right SFA stenosis, for which successful, uneventful [employer] was performed. An additional 60% eccentric stenosis within right popliteal artery, immediately above the knee joint, was not treated. 5. Markedly severe right tibial occlusive disease, as described, without in-line distal runoff. Delayed images over right foot revealed reconstitution of distal anterior tibial artery through dorsalis pedis artery and plantar arch, as described. Most distal posterior tibial artery is also reconstituted, followed by small caliber, diffusely diseased, segmentally occluded plantar arteries.
[2016-09-24] MEDS: DARBEPOETIN ALFA 60 MCG/0.3 ML DISP.SYRIN. SQ SCH (20:23)
[2016-09-24] MEDS: ATORVASTATIN CALCIUM 40 MG TABLET. PO SCH (20:23)
[2016-09-24] MEDS: INSULIN DETEMIR 300 UNITS/3 ML INSULN.PEN. SQ SCH (20:25)
[2016-09-25 03:29] VITALS: BP 157/93
[2016-09-25 05:40] LABS: BASO % 1 % (0-3); EOS % 0 % (0-3); HEMATOCRIT 22.5 % (39.0-53.0); HEMOGLOBIN 7.3 g/dL (13.0-17.5); LYMPH # 1.6 x10^3/uL (1.0-4.8); LYMPH % 18 % (24-48); MEAN CORPUSCULAR HEMOGLOBIN 28 pg (25-35); MEAN CORPUSCULAR HGB CONC 32 g/dL (31-37); MEAN CORPUSCULAR VOLUME 88 fL (79-100); MONO % 10 % (0-9); NEUT % 71 % (31-73); PLATELET COUNT 376 x10^3/uL (140-400); RED BLOOD COUNT 2.56 x10^6/uL (4.30-5.70); RED CELL DISTRIBUTION WIDTH 16.5 % (11.5-14.5); WHITE BLOOD COUNT 9.1 x10^3/uL (4.0-11.0)
[2016-09-25 06:07] LABS: ALBUMIN 2.4 g/dL (3.4-5.0); CALCIUM 8.5 mg/dL (8.5-10.1); CREATININE 2.8 mg/dL (0.7-1.3); GFR 26.9; PHOSPHORUS 5.3 mg/dL (2.6-4.7); POTASSIUM 4.2 mmol/L (3.5-5.1)
[2016-09-25 06:08] LABS: MAGNESIUM 2.1 mg/dL (1.8-2.4)
[2016-09-25 07:00] VITALS: BP 141/98
[2016-09-25 07:29] LABS: MYELOPEROXIDASE ABY <9.0 U/mL (0.0-9.0); PROTEINASE 3 ANTIBODY <3.5 U/mL (0.0-3.5)
[2016-09-25] MEDS: INSULIN ASPART 300 UNITS/3 ML INSULN.PEN SQ SCH ×3 (08:00→18:01)
[2016-09-25] MEDS: BUDESONIDE 0.5 MG/2 ML NEBU. NEB SCH ×2 (08:05→19:57)
[2016-09-25] MEDS: IPRATRPIUM/ALBUTEROL 0.5/2.5MG 3 ML NEBU. NEB SCH ×4 (08:05→19:57)
[2016-09-25] MEDS: ISOSORBIDE MONONITRATE ER 30 MG TAB.ER.24H PO SCH (08:20)
[2016-09-25] MEDS: CLOPIDOGREL BISULFATE 75 MG TABLET PO SCH (08:20)
[2016-09-25] MEDS: BENZONATATE 100 MG CAPSULE. PO SCH ×3 (08:20→21:44)
--- NOTE | 2016-09-25 08:27 | RAD ---
Indication: Preop for bypass surgery. Bilateral upper extremity venous analysis was performed of the cephalic and basilic veins. Measurements are as follows: Right upper extremity: Cephalic vein (proximal to distal): 0.2 mm, 0.4 mm, 0.3 mm, 0.3 mm, 0.2 mm. Basilic vein: 0.7 mm, 0.3 mm, 0.4 mm, 0.4 mm, 0.2 mm, 0.2 mm. Left upper extremity: Cephalic vein: No measurements could be obtained. The vein is too small to measure. Basilic vein: 0.4 mm, 0.0, 0.2 mm, 0.3 mm, 0.2 mm. Impression: Bilateral upper extremity basilic and cephalic vein measurements, as described.
--- NOTE | 2016-09-25 08:30 | RAD ---
Indication: Preop for bypass surgery. Greater saphenous and lesser saphenous vein measurements were performed bilaterally. Measurements are given proximal to distal. Right lower extremity: Greater saphenous vein: 0.5 cm, 0.2 cm, 0.2 cm x 0.2 cm, 0.2 cm, 0.2 cm. Lesser saphenous vein: 0.3 cm, 0.2 cm, 0.2 cm. Left lower extremity: Greater saphenous vein: 0.4 cm, 0.2 cm, 0.3 cm, 0.2 cm, 0.1 cm, 0.1 cm. Lesser saphenous vein: 0.4 cm, 0.1 cm, 0.1 cm. Impression: Bilateral lower extremity greater and lesser saphenous vein measurements, as described.
--- NOTE | 2016-09-25 09:48 | PDOC ---
PULMONARY PROGRESS NOTES Subjective no SOA sats stable Vitals Vital Signs Date Time Temp Pulse Resp B/P (MAP) Pulse Ox O2 Delivery O2 Flow Rate FiO2 09/25/16 08:21 94 141/98 09/25/16 08:06 96 Nasal Cannula 3.0 09/25/16 07:00 97.5 20 97.5 General: Alert, No acute distress HEENT: Other Lungs: Other (bl decreased bs) Cardiovascular: S1, S2 Abdomen: Soft, Non-tender, Other Extremities: Other Labs Laboratory Tests Test 09/23/16 11:39 09/23/16 17:09 09/23/16 19:19 09/23/16 21:00 Glucose (Fingerstick) 242 mg/dL (70-99) 301 mg/dL (70-99) 327 mg/dL (70-99) Urine Opiates Screen Neg (NEG) Urine Methadone Screen Neg (NEG) Urine Barbiturates Neg (NEG) Urine Phencyclidine Screen Neg (NEG) Urine Amphetamine/Methamphetamine Neg (NEG) Urine Benzodiazepines Screen Neg (NEG) Urine Cocaine Screen Neg (NEG) Urine Cannabinoids Screen Neg (NEG) Urine Ethyl Alcohol Neg (NEG) Test 09/24/16 04:00 09/24/16 08:16 09/24/16 11:58 09/24/16 15:00 Sodium Level 133 mmol/L (136-145) Potassium Level 5.0 mmol/L (3.5-5.1) Chloride Level 98 mmol/L (98-107) Carbon Dioxide Level 24 mmol/L (21-32) Anion Gap 11 (6-14) Blood Urea Nitrogen 59 mg/dL (8-26) Creatinine 3.0 mg/dL (0.7-1.3) Estimated GFR (Cockcroft-Gault) 24.9 Glucose Level 223 mg/dL (70-99) Calcium Level 8.8 mg/dL (8.5-10.1) Phosphorus Level 5.1 mg/dL (2.6-4.7) Magnesium Level 2.2 mg/dL (1.8-2.4) Creatine Kinase 67 U/L (39-308) Albumin 2.6 g/dL (3.4-5.0) Glucose (Fingerstick) 204 mg/dL (70-99) 159 mg/dL (70-99) 137 mg/dL (70-99) Test 09/24/16 17:22 09/24/16 20:17 09/25/16 05:20 09/25/16 07:35 Glucose (Fingerstick) 168 mg/dL (70-99) 142 mg/dL (70-99) 73 mg/dL (70-99) White Blood Count 9.1 x10^3/uL (4.0-11.0) Red Blood Count 2.56 x10^6/uL (4.30-5.70) Hemoglobin 7.3 g/dL (13.0-17.5) Hematocrit 22.5 % (39.0-53.0) Mean Corpuscular Volume 88 fL (79-100) Mean Corpuscular Hemoglobin 28 pg (25-35) Mean Corpuscular Hemoglobin Concent 32 g/dL (31-37) Red Cell Distribution Width 16.5 % (11.5-14.5) Platelet Count 376 x10^3/uL (140-400) Neutrophils (%) (Auto) 71 % (31-73) Lymphocytes (%) (Auto) 18 % (24-48) Monocytes (%) (Auto) 10 % (0-9) Eosinophils (%) (Auto) 0 % (0-3) Basophils (%) (Auto) 1 % (0-3) Neutrophils # (Auto) 6.5 x10^3uL (1.8-7.7) Lymphocytes # (Auto) 1.6 x10^3/uL (1.0-4.8) Monocytes # (Auto) 0.9 x10^3/uL (0.0-1.1) Eosinophils # (Auto) 0.0 x10^3/uL (0.0-0.7) Basophils # (Auto) 0.0 x10^3/uL (0.0-0.2) Sodium Level 137 mmol/L (136-145) Potassium Level 4.2 mmol/L (3.5-5.1) Chloride Level 102 mmol/L (98-107) Carbon Dioxide Level 27 mmol/L (21-32) Anion Gap 8 (6-14) Blood Urea Nitrogen 56 mg/dL (8-26) Creatinine 2.8 mg/dL (0.7-1.3) Estimated GFR (Cockcroft-Gault) 26.9 Glucose Level 80 mg/dL (70-99) Calcium Level 8.5 mg/dL (8.5-10.1) Phosphorus Level 5.3 mg/dL (2.6-4.7) Magnesium Level 2.1 mg/dL (1.8-2.4) Creatine Kinase 45 U/L (39-308) Albumin 2.4 g/dL (3.4-5.0) Laboratory Tests Test 09/24/16 11:58 09/24/16 15:00 09/24/16 17:22 09/24/16 20:17 Glucose (Fingerstick) 159 mg/dL (70-99) 137 mg/dL (70-99) 168 mg/dL (70-99) 142 mg/dL (70-99) Test 09/25/16 05:20 09/25/16 07:35 White Blood Count 9.1 x10^3/uL (4.0-11.0) Red Blood Count 2.56 x10^6/uL (4.30-5.70) Hemoglobin 7.3 g/dL (13.0-17.5) Hematocrit 22.5 % (39.0-53.0) Mean Corpuscular Volume 88 fL (79-100) Mean Corpuscular Hemoglobin 28 pg (25-35) Mean Corpuscular Hemoglobin Concent 32 g/dL (31-37) Red Cell Distribution Width 16.5 % (11.5-14.5) Platelet Count 376 x10^3/uL (140-400) Neutrophils (%) (Auto) 71 % (31-73) Lymphocytes (%) (Auto) 18 % (24-48) Monocytes (%) (Auto) 10 % (0-9) Eosinophils (%) (Auto) 0 % (0-3) Basophils (%) (Auto) 1 % (0-3) Neutrophils # (Auto) 6.5 x10^3uL (1.8-7.7) Lymphocytes # (Auto) 1.6 x10^3/uL (1.0-4.8) Monocytes # (Auto) 0.9 x10^3/uL (0.0-1.1) Eosinophils # (Auto) 0.0 x10^3/uL (0.0-0.7) Basophils # (Auto) 0.0 x10^3/uL (0.0-0.2) Sodium Level 137 mmol/L (136-145) Potassium Level 4.2 mmol/L (3.5-5.1) Chloride Level 102 mmol/L (98-107) Carbon Dioxide Level 27 mmol/L (21-32) Anion Gap 8 (6-14) Blood Urea Nitrogen 56 mg/dL (8-26) Creatinine 2.8 mg/dL (0.7-1.3) Estimated GFR (Cockcroft-Gault) 26.9 Glucose Level 80 mg/dL (70-99) Calcium Level 8.5 mg/dL (8.5-10.1) Phosphorus Level 5.3 mg/dL (2.6-4.7) Magnesium Level 2.1 mg/dL (1.8-2.4) Creatine Kinase 45 U/L (39-308) Albumin 2.4 g/dL (3.4-5.0) Glucose (Fingerstick) 73 mg/dL (70-99) Medications Active Scripts Medications Dose Route/Sig Max Daily Dose Days Date Category Levofloxacin 750 Mg Tablet 1 Tab PO DAILY 09/21/16 Rx Percocet 5-325 Mg Tablet (Oxycodone/Acetaminophen) 1 Each Tablet 1 Tab PO PRN Q6HRS PRN 07/30/16 Reported Advair 100-50 Diskus (Fluticasone/Salmeterol) 1 Each Disk.w.dev 1 Puff IH BID 06/21/16 Reported Spiriva Respimat (Tiotropium Embarrass) 4 Gm Mist.inhal 2.5 Gm IH DAILY 06/21/16 Reported Symbicort 160-4.5 Mcg Inhaler (Budesonide/Formoterol Fumarate) 10.2 Gm Hfa.aer.ad 2 Puff IH BID 06/21/16 Reported Atorvastatin Calcium 20 Mg Tablet 20 Mg PO HS 06/21/16 Reported Lisinopril-Hctz 10-12.5 Mg Tab (Lisinopril/Hydrochlorothiazide) 1 Each Tablet 1 Tab PO DAILY 06/21/16 Reported Isosorbide Mononitrate Er (Isosorbide Mononitrate) 120 Mg Tab.er.24h 120 Mg PO DAILY 06/21/16 Reported Levemir Flextouch (Insulin Detemir) 100 Unit/1 Ml Insuln.pen 20 Units SQ QHS 30 11/24/15 Rx Novolog Flexpen (Insulin Aspart) 100 Unit/1 Ml Insuln.pen 10 Units SQ TIDAC 30 11/24/15 Rx Novolin N (Nph, Human Insulin Isophane) 100 Unit/1 Ml Vial 0 SQ 11/18/15 Reported Promethazine-Codeine Syrup (Promethazine Hcl/Codeine) 118 Ml Syrup 5 Ml PO Q4-6HRS 11/18/15 Reported Diltiazem 24HR Cd (Diltiazem Hcl) 240 Mg Cap.er.24h 240 Mg PO DAILY 11/18/15 Reported NITROGLYCERIN SubLingual (Nitroglycerin) 0.4 Mg Tab.subl 0.4 Mg SL PRN Q5MIN PRN 11/18/15 Reported Atorvastatin Calcium 40 Mg Tablet 40 Mg PO HS 11/18/15 Reported Impression . 1. Acute encephalopathy secondary to severe hypoglycemia, now completely resolved. The mental status has improved. 2. History of chronic obstructive airway disease, clinically compensated. 3. History of extensive pulmonary embolism, resulting in shock in June. Status post treatment with anticoagulation Xarelto with last CT angiogram done on 2016 has shown resolution of pulmonary embolism.He is s/p IVC filter. 3 Months of AC was recommended. off now 4. History of IVC filter placement in June. 5. 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 6. Abnormal CXR with mild CHF 7. renal failure, Plan . 1. Hold further lasix 2. Continue present nasal cannula. 3. Monitor blood sugars closely. 4. Management of diabetes per PCP. 5. Monitor hemoglobin closely. 6. Discussed with RN. 7. Pt has resolution of PE by last CT. s/p treatment with Xarelto.Not the best candidate for retirement AC. no further AC 8. HD per renal if needed IVANA COX MD Sep 25, 2016 09:48
[2016-09-25] MEDS: ACETYLCYSTEINE 20% ORAL SOLN 600 MG/3 ML SYRINGE. PO SCH ×2 (10:39→21:44)
[2016-09-25 11:00] VITALS: BP 144/70
--- NOTE | 2016-09-25 11:10 | PDOC ---
PROGRESS NOTES Chief Complaint Chief Complaint 1, Hypoglycemia with acute encephalopathy POA, resolved 2. 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 Mod PCM 4. High fall risk 5. CLaudication R>L 6. Gen weakness Old dx: 2. HX bilateral PE with cardiac arrest ([facility] 2016) sec to PE 3. CLean cardiac cath 4.Hx Non-occlusive thrombus, R leg (07/15) 5. COPD on home o2? exacerbation - wheezy 6. DM2; insulin requiring with HYPOGLYCEMIA 7. Hx Oliguric Hyperkalemic renal failure - stable 8 Dyslipidemia on statin 9. HX significant angioedema likely sec to ADAN inhib needing intubation (06/2016) History of Present Illness History of Present Illness Pt eating breakfast. Doesnt want to leave DW RN HGb 7.6 Crea 2.7 Imaging last june 2016: 1. Moderate atherosclerotic plaquing of the abdominal aorta and its branches. 2. Moderate atherosclerotic plaquing in the larger of the two right renal arteries with moderate underlying stenosis estimated at approximately 60% of the luminal diameter. 3. 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 4. Miscellaneous findings as described above including bilateral pleural effusions, pulmonary infiltrates, ascites and anasarca. PLAN: fu with card, pulm, renal will get HD cath today incase need HD fu with vascular , will need angiogram for bl lower ext for PAD cont current meds for HTN, add levemir 10u qhs, cont ssi dvt ppx no AC with h/o PE, but seems had DVT in 06/2016 Vitals Vitals Vital Signs Date Time Temp Pulse Resp B/P (MAP) Pulse Ox O2 Delivery O2 Flow Rate FiO2 09/25/16 08:21 94 141/98 09/25/16 08:06 96 Nasal Cannula 3.0 09/25/16 07:00 97.5 20 97.5 Physical Exam General: Alert, Oriented X3, Cooperative, mild distress Heart: Regular rate (Sinus tach), Normal S1, Normal S2, Other (3/6 systolic murmur to LLS border) Lungs: Other (bl decreased bs) Abdomen: Soft, No tenderness Extremities: No clubbing, No edema, Normal pulses Skin: No rashes Labs LABS Laboratory Tests Test 09/24/16 11:58 09/24/16 15:00 09/24/16 17:22 09/24/16 20:17 Glucose (Fingerstick) 159 mg/dL (70-99) 137 mg/dL (70-99) 168 mg/dL (70-99) 142 mg/dL (70-99) Test 09/25/16 05:20 09/25/16 07:35 White Blood Count 9.1 x10^3/uL (4.0-11.0) Red Blood Count 2.56 x10^6/uL (4.30-5.70) Hemoglobin 7.3 g/dL (13.0-17.5) Hematocrit 22.5 % (39.0-53.0) Mean Corpuscular Volume 88 fL (79-100) Mean Corpuscular Hemoglobin 28 pg (25-35) Mean Corpuscular Hemoglobin Concent 32 g/dL (31-37) Red Cell Distribution Width 16.5 % (11.5-14.5) Platelet Count 376 x10^3/uL (140-400) Neutrophils (%) (Auto) 71 % (31-73) Lymphocytes (%) (Auto) 18 % (24-48) Monocytes (%) (Auto) 10 % (0-9) Eosinophils (%) (Auto) 0 % (0-3) Basophils (%) (Auto) 1 % (0-3) Neutrophils # (Auto) 6.5 x10^3uL (1.8-7.7) Lymphocytes # (Auto) 1.6 x10^3/uL (1.0-4.8) Monocytes # (Auto) 0.9 x10^3/uL (0.0-1.1) Eosinophils # (Auto) 0.0 x10^3/uL (0.0-0.7) Basophils # (Auto) 0.0 x10^3/uL (0.0-0.2) Sodium Level 137 mmol/L (136-145) Potassium Level 4.2 mmol/L (3.5-5.1) Chloride Level 102 mmol/L (98-107) Carbon Dioxide Level 27 mmol/L (21-32) Anion Gap 8 (6-14) Blood Urea Nitrogen 56 mg/dL (8-26) Creatinine 2.8 mg/dL (0.7-1.3) Estimated GFR (Cockcroft-Gault) 26.9 Glucose Level 80 mg/dL (70-99) Calcium Level 8.5 mg/dL (8.5-10.1) Phosphorus Level 5.3 mg/dL (2.6-4.7) Magnesium Level 2.1 mg/dL (1.8-2.4) Creatine Kinase 45 U/L (39-308) Albumin 2.4 g/dL (3.4-5.0) Glucose (Fingerstick) 73 mg/dL (70-99) Review of Systems Review of Systems co weakness co hunger Assessment and Plan Assessmemt and Plan Problems Medical Problems: (1) Hypoglycemia Status: Acute 1, Hypoglycemia with acute encephalopathy POA, resolved 2. 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 Mod PCM 4. High fall risk 5. CLaudication R>L 6. Gen weakness Old dx: 2. HX bilateral PE with cardiac arrest ([facility] 2016) sec to PE 3. CLean cardiac cath 4.Hx Non-occlusive thrombus, R leg (07/15) 5. COPD on home o2? exacerbation - wheezy 6. DM2; insulin requiring with HYPOGLYCEMIA 7. Hx Oliguric Hyperkalemic renal failure - stable 8 Dyslipidemia on statin 9. HX significant angioedema likely sec to ADAN inhib needing intubation (06/2016) Plan Reckeck labs PTOT SNU eval in progress home meds Problems: Comment Review of Relevant I have reviewed the following items valerie (where applicable) has been applied. Labs Laboratory Tests Test 09/23/16 11:39 09/23/16 17:09 09/23/16 19:19 09/23/16 21:00 Glucose (Fingerstick) 242 mg/dL (70-99) 301 mg/dL (70-99) 327 mg/dL (70-99) Urine Opiates Screen Neg (NEG) Urine Methadone Screen Neg (NEG) Urine Barbiturates Neg (NEG) Urine Phencyclidine Screen Neg (NEG) Urine Amphetamine/Methamphetamine Neg (NEG) Urine Benzodiazepines Screen Neg (NEG) Urine Cocaine Screen Neg (NEG) Urine Cannabinoids Screen Neg (NEG) Urine Ethyl Alcohol Neg (NEG) Test 09/24/16 04:00 09/24/16 08:16 09/24/16 11:58 09/24/16 15:00 Sodium Level 133 mmol/L (136-145) Potassium Level 5.0 mmol/L (3.5-5.1) Chloride Level 98 mmol/L (98-107) Carbon Dioxide Level 24 mmol/L (21-32) Anion Gap 11 (6-14) Blood Urea Nitrogen 59 mg/dL (8-26) Creatinine 3.0 mg/dL (0.7-1.3) Estimated GFR (Cockcroft-Gault) 24.9 Glucose Level 223 mg/dL (70-99) Calcium Level 8.8 mg/dL (8.5-10.1) Phosphorus Level 5.1 mg/dL (2.6-4.7) Magnesium Level 2.2 mg/dL (1.8-2.4) Creatine Kinase 67 U/L (39-308) Albumin 2.6 g/dL (3.4-5.0) Glucose (Fingerstick) 204 mg/dL (70-99) 159 mg/dL (70-99) 137 mg/dL (70-99) Test 09/24/16 17:22 09/24/16 20:17 09/25/16 05:20 09/25/16 07:35 Glucose (Fingerstick) 168 mg/dL (70-99) 142 mg/dL (70-99) 73 mg/dL (70-99) White Blood Count 9.1 x10^3/uL (4.0-11.0) Red Blood Count 2.56 x10^6/uL (4.30-5.70) Hemoglobin 7.3 g/dL (13.0-17.5) Hematocrit 22.5 % (39.0-53.0) Mean Corpuscular Volume 88 fL (79-100) Mean Corpuscular Hemoglobin 28 pg (25-35) Mean Corpuscular Hemoglobin Concent 32 g/dL (31-37) Red Cell Distribution Width 16.5 % (11.5-14.5) Platelet Count 376 x10^3/uL (140-400) Neutrophils (%) (Auto) 71 % (31-73) Lymphocytes (%) (Auto) 18 % (24-48) Monocytes (%) (Auto) 10 % (0-9) Eosinophils (%) (Auto) 0 % (0-3) Basophils (%) (Auto) 1 % (0-3) Neutrophils # (Auto) 6.5 x10^3uL (1.8-7.7) Lymphocytes # (Auto) 1.6 x10^3/uL (1.0-4.8) Monocytes # (Auto) 0.9 x10^3/uL (0.0-1.1) Eosinophils # (Auto) 0.0 x10^3/uL (0.0-0.7) Basophils # (Auto) 0.0 x10^3/uL (0.0-0.2) Sodium Level 137 mmol/L (136-145) Potassium Level 4.2 mmol/L (3.5-5.1) Chloride Level 102 mmol/L (98-107) Carbon Dioxide Level 27 mmol/L (21-32) Anion Gap 8 (6-14) Blood Urea Nitrogen 56 mg/dL (8-26) Creatinine 2.8 mg/dL (0.7-1.3) Estimated GFR (Cockcroft-Gault) 26.9 Glucose Level 80 mg/dL (70-99) Calcium Level 8.5 mg/dL (8.5-10.1) Phosphorus Level 5.3 mg/dL (2.6-4.7) Magnesium Level 2.1 mg/dL (1.8-2.4) Creatine Kinase 45 U/L (39-308) Albumin 2.4 g/dL (3.4-5.0) Laboratory Tests Test 09/24/16 11:58 09/24/16 15:00 09/24/16 17:22 09/24/16 20:17 Glucose (Fingerstick) 159 mg/dL (70-99) 137 mg/dL (70-99) 168 mg/dL (70-99) 142 mg/dL (70-99) Test 09/25/16 05:20 09/25/16 07:35 White Blood Count 9.1 x10^3/uL (4.0-11.0) Red Blood Count 2.56 x10^6/uL (4.30-5.70) Hemoglobin 7.3 g/dL (13.0-17.5) Hematocrit 22.5 % (39.0-53.0) Mean Corpuscular Volume 88 fL (79-100) Mean Corpuscular Hemoglobin 28 pg (25-35) Mean Corpuscular Hemoglobin Concent 32 g/dL (31-37) Red Cell Distribution Width 16.5 % (11.5-14.5) Platelet Count 376 x10^3/uL (140-400) Neutrophils (%) (Auto) 71 % (31-73) Lymphocytes (%) (Auto) 18 % (24-48) Monocytes (%) (Auto) 10 % (0-9) Eosinophils (%) (Auto) 0 % (0-3) Basophils (%) (Auto) 1 % (0-3) Neutrophils # (Auto) 6.5 x10^3uL (1.8-7.7) Lymphocytes # (Auto) 1.6 x10^3/uL (1.0-4.8) Monocytes # (Auto) 0.9 x10^3/uL (0.0-1.1) Eosinophils # (Auto) 0.0 x10^3/uL (0.0-0.7) Basophils # (Auto) 0.0 x10^3/uL (0.0-0.2) Sodium Level 137 mmol/L (136-145) Potassium Level 4.2 mmol/L (3.5-5.1) Chloride Level 102 mmol/L (98-107) Carbon Dioxide Level 27 mmol/L (21-32) Anion Gap 8 (6-14) Blood Urea Nitrogen 56 mg/dL (8-26) Creatinine 2.8 mg/dL (0.7-1.3) Estimated GFR (Cockcroft-Gault) 26.9 Glucose Level 80 mg/dL (70-99) Calcium Level 8.5 mg/dL (8.5-10.1) Phosphorus Level 5.3 mg/dL (2.6-4.7) Magnesium Level 2.1 mg/dL (1.8-2.4) Creatine Kinase 45 U/L (39-308) Albumin 2.4 g/dL (3.4-5.0) Glucose (Fingerstick) 73 mg/dL (70-99) Microbiology 09/22/16 Blood Culture - Preliminary, Resulted NO GROWTH AFTER 2 DAYS Medications Current Medications Dextrose (Dextrose 50%-Water Syringe) 25 gm STK-MED ONCE IV ; Start 09/22/16 at 10:39; Stop 09/22/16 at 10:40; Status DC Dextrose 500 ml @ 30 mls/hr 1X ONCE IV Last administered on 09/22/16 11:52; Start 09/22/16 at 11:45; Stop 09/22/16 at 17:38; Status DC Dextrose (Dextrose 50%-Water Syringe) 25 gm STK-MED ONCE IV ; Start 09/22/16 at 11:45; Stop 09/22/16 at 11:46; Status DC Dextrose (Dextrose 50%-Water Syringe) 25 gm 1X ONCE IV Last administered on 10:45; Start 09/22/16 at 12:00; Stop 09/22/16 at 12:01; Status DC Dextrose (Dextrose 50%-Water Syringe) 25 gm 1X ONCE IV Last administered on 11:40; Start 09/22/16 at 12:00; Stop 09/22/16 at 12:01; Status DC Nitroglycerin (Nitrostat) 0.4 mg PRN Q5MIN PRN SL CHEST PAIN Last administered on 09/24/16 03:18; Start 09/22/16 at 12:00 Ondansetron HCl (Zofran) 4 mg PRN Q8HRS PRN IV NAUSEA/VOMITING; Start 09/22/16 at 12:30; Stop 09/23/16 at 12:29; Status DC Levofloxacin/ Dextrose (Levaquin Per Pharmacy) 1 each PRN DAILY PRN MC SEE COMMENTS; Start 09/22/16 at 12:45 Levofloxacin/ Dextrose 150 ml @ 100 mls/hr Q48H IV Last administered on 16:07; Start 09/22/16 at 13:00 Sodium Chloride 500 ml @ 1,000 mls/hr 1X ONCE IV Last administered on 13:10; Start 09/22/16 at 13:15; Stop 09/22/16 at 13:44; Status DC Dextrose (Dextrose 50%-Water Syringe) 25 gm 1X ONCE IV Last administered on 13:11; Start 09/22/16 at 13:15; Stop 09/22/16 at 13:16; Status DC Insulin Aspart (NovoLOG) 0-5 UNITS TIDWMEALS SQ Last administered on 09/22/16 18:17; Start 09/22/16 at 17:00; Stop 09/23/16 at 09:23; Status DC Dextrose (Dextrose 50%-Water Syringe) 12.5 gm PRN Q15MIN PRN IV SEE COMMENTS Last administered on 09/22/16 13:58; Start 09/22/16 at 14:00 Labetalol HCl (Normodyne) 20 mg PRN Q2HR PRN IVP HYPERTENSION, SEE COMMENTS Last administered on 09/22/16 15:19; Start 09/22/16 at 14:15 Amlodipine Besylate (Norvasc) 10 mg DAILY PO ; Start 09/23/16 at 09:00; Status UNV Atorvastatin Calcium (Lipitor) 40 mg HS PO Last administered on 09/24/16 20:23 ; Start 09/22/16 at 21:00 Diltiazem HCl (Cardizem 24hr Cd) 240 mg DAILY PO Last administered on 09/25/16 08:21; Start 09/22/16 at 15:00 Isosorbide Mononitrate (Imdur) 120 mg DAILY PO Last administered on 09/25/16 08 :20; Start 09/22/16 at 15:00 Albuterol/ Ipratropium (Duoneb) 3 ml STK-MED ONCE .ROUTE ; Start 09/22/16 at 15: 06; Stop 09/22/16 at 15:07; Status DC Albuterol/ Ipratropium (Duoneb) 3 ml RTQID NEB Last administered on 09/25/16 08 :05; Start 09/22/16 at 16:00 Budesonide (Pulmicort) 0.5 mg RTBID NEB Last administered on 09/25/16 08:05; Start 09/22/16 at 20:00 Magnesium Sulfate/ Dextrose 50 ml @ 25 mls/hr PRN DAILY PRN IV for Mag < 1.7 on am labs; Start 09/22/16 at 15:45 Sodium Chloride 1,000 ml @ 100 mls/hr Q10H IV Last administered on 09/23/16 01 :35; Start 09/22/16 at 15:45; Stop 09/23/16 at 07:45; Status DC Dextrose 1,000 ml @ 50 mls/hr Q20H IV Last administered on 09/22/16 17:39; Start 09/22/16 at 17:45; Stop 09/23/16 at 07:45; Status DC Insulin Aspart (NovoLOG) 0-9 UNITS TIDWMEALS SQ Last administered on 09/24/16 18:34; Start 09/23/16 at 12:00 Dextrose (Dextrose 50%-Water Syringe) 12.5 gm PRN Q15MIN PRN IV SEE COMMENTS; Start 09/23/16 at 09:30; Stop 09/23/16 at 12:56; Status DC Albuterol/ Ipratropium (Duoneb) 3 ml RTQID NEB ; Start 09/23/16 at 12:00; Stop at 12:56; Status DC Prednisone (Prednisone) 60 mg 1X ONCE PO Last administered on 09/23/16 10:00; Start 09/23/16 at 09:30; Stop 09/23/16 at 09:31; Status DC Benzonatate (Tessalon Perle) 100 mg [id number] PO Last administered on 09/25/16 08: 20; Start 09/23/16 at 09:30 Furosemide (Lasix) 20 mg 1X ONCE IVP Last administered on 09/23/16 17:30; Start 09/23/16 at 17:30; Stop 09/23/16 at 17:31; Status DC Furosemide (Lasix) 80 mg 1X ONCE IVP Last administered on 09/24/16 15:56; Start 09/24/16 at 11:00; Stop 09/24/16 at 11:03; Status DC Acetylcysteine (Mucomyst 20% Oral Solution) 1,200 mg BID PO Last administered on 09/25/16 10:39; Start 09/24/16 at 11:30; Stop 09/26/16 at 11:29 Darbepoetin Arsh (Aranesp) 60 mcg WEEKLYHS SQ Last administered on 09/24/16 20: 23; Start 09/24/16 at 21:00 Tramadol HCl (Ultram) 50 mg PRN Q6HRS PRN PO PAIN; Start 09/24/16 at 11:30 Iohexol (Omnipaque 300 Mg/ml) 100 ml STK-MED ONCE .ROUTE ; Start 09/24/16 at 12: 12; Stop 09/24/16 at 12:13; Status DC Lidocaine/Sodium Bicarbonate (Buffered Lidocaine 1%) 20 ml STK-MED ONCE IJ ; Start 09/24/16 at 12:12; Stop 09/24/16 at 12:13; Status DC Midazolam HCl (Versed) 5 mg STK-MED ONCE .ROUTE ; Start 09/24/16 at 12:12; Stop 09/24/16 at 12:13; Status DC Fentanyl Citrate (Fentanyl 5ml Vial) 250 mcg STK-MED ONCE .ROUTE ; Start at 12:12; Stop 09/24/16 at 12:13; Status DC Heparin Sodium/ Sodium Chloride 2,000 ml @ As Directed STK-MED ONCE .ROUTE ; Start 09/24/16 at 12:13; Stop 09/24/16 at 12:14; Status DC Iodixanol (Visipaque 320) 100 ml STK-MED ONCE .ROUTE ; Start 09/24/16 at 12:13; Stop 09/24/16 at 12:14; Status DC Heparin Sodium (Porcine) (Heparin Sodium) 10,000 unit STK-MED ONCE .ROUTE ; Start 09/24/16 at 12:15; Stop 09/24/16 at 12:16; Status DC Insulin Detemir (Levemir) 10 units QHS SQ Last administered on 09/24/16 20:25; Start 09/24/16 at 21:00 Heparin Sodium/ Sodium Chloride 1,000 unit 1X ONCE IART Last administered on 14:52; Start 09/24/16 at 14:00; Stop 09/24/16 at 14:01; Status DC Lidocaine/Sodium Bicarbonate (Buffered Lidocaine 1%) 20 ml 1X ONCE IJ Last administered on 09/24/16 14:00; Start 09/24/16 at 14:00; Stop 09/24/16 at 14:01; Status DC Midazolam HCl (Versed) 5 mg 1X ONCE IV ; Start 09/24/16 at 14:00; Stop 09/24/16 at 14:01; Status DC Fentanyl Citrate (Fentanyl 5ml Vial) 250 mcg 1X ONCE IV ; Start 09/24/16 at 14: 00; Stop 09/24/16 at 14:01; Status DC Iohexol (Omnipaque 300 Mg/ml) 100 ml 1X ONCE IART Last administered on 14:51; Start 09/24/16 at 14:00; Stop 09/24/16 at 14:01; Status DC Iodixanol (Visipaque 320) 100 ml 1X ONCE IART Last administered on 09/24/16 14 :00; Start 09/24/16 at 14:00; Stop 09/24/16 at 14:01; Status DC Heparin Sodium (Porcine) (Heparin Sodium) 4,000 unit 1X ONCE IV Last administered on 09/24/16 14:00; Start 09/24/16 at 14:00; Stop 09/24/16 at 14:01; Status DC Info (Do NOT chart on this entry -- for MONITORING) 1 each PRN DAILY PRN MC SEE COMMENTS; Start 09/24/16 at 14:15; Stop 09/26/16 at 14:14 Clopidogrel Bisulfate (Plavix) 300 mg 1X ONCE PO Last administered on 16:01; Start 09/24/16 at 15:30; Stop 09/24/16 at 15:31; Status DC Clopidogrel Bisulfate (Plavix) 75 mg DAILYWBKFT PO Last administered on 08:20; Start 09/25/16 at 08:00; Stop 10/25/16 at 08:00 Active Scripts Active Levofloxacin 750 Mg Tablet 1 Tab PO DAILY Levemir Flextouch (Insulin Detemir) 100 Unit/1 Ml Insuln.pen 20 Units SQ QHS 30 Days Novolog Flexpen (Insulin Aspart) 100 Unit/1 Ml Insuln.pen 10 Units SQ TIDAC 30 Days Reported Percocet 5-325 Mg Tablet (Oxycodone/Acetaminophen) 1 Each Tablet 1 Tab PO PRN Q6HRS PRN Advair 100-50 Diskus (Fluticasone/Salmeterol) 1 Each Disk.w.dev 1 Puff IH BID Spiriva Respimat (Tiotropium Amigo) 4 Gm Mist.inhal 2.5 Gm IH DAILY Symbicort 160-4.5 Mcg Inhaler (Budesonide/Formoterol Fumarate) 10.2 Gm Hfa.aer.ad 2 Puff IH BID Atorvastatin Calcium 20 Mg Tablet 20 Mg PO HS Lisinopril-Hctz 10-12.5 Mg Tab (Lisinopril/Hydrochlorothiazide) 1 Each Tablet 1 Tab PO DAILY Isosorbide Mononitrate Er (Isosorbide Mononitrate) 120 Mg Tab.er.24h 120 Mg PO DAILY Novolin N (Nph, Human Insulin Isophane) 100 Unit/1 Ml Vial 0 SQ Promethazine-Codeine Syrup (Promethazine Hcl/Codeine) 118 Ml Syrup 5 Ml PO Q4- 6HRS Diltiazem 24HR Cd (Diltiazem Hcl) 240 Mg Cap.er.24h 240 Mg PO DAILY NITROGLYCERIN SubLingual (Nitroglycerin) 0.4 Mg Tab.subl 0.4 Mg SL PRN Q5MIN PRN Atorvastatin Calcium 40 Mg Tablet 40 Mg PO HS Vitals/I & O Vital Sign - Last 24 Hours 09/24/16 09/24/16 09/24/16 09/24/16 14:00 15:15 15:17 15:30 Temp 97.5 97.5 Pulse 84 75 Resp 21 20 20 B/P (MAP) 159/90 (113) 158/93 (114) Pulse Ox 96 91 94 96 O2 Delivery Nasal Cannula Nasal Cannula Nasal Cannula Nasal Cannula O2 Flow Rate 3.0 2.0 3.0 09/24/16 09/24/16 09/24/16 09/24/16 15:45 16:00 16:30 17:00 Pulse 78 81 78 80 Resp 20 20 20 20 B/P (MAP) 154/92 (112) 153/95 (114) 156/91 (112) 164/94 (117) Pulse Ox 97 95 95 96 O2 Delivery Nasal Cannula Nasal Cannula Nasal Cannula Nasal Cannula 09/24/16 09/24/16 09/24/16 09/24/16 17:30 18:00 20:00 20:18 Pulse 79 75 Resp 20 20 B/P (MAP) 168/70 (102) 148/68 (94) Pulse Ox 96 95 O2 Delivery Nasal Cannula Nasal Cannula Nasal Cannula Nasal Cannula O2 Flow Rate 3.0 3.0 09/24/16 09/25/16 09/25/16 09/25/16 23:33 03:29 07:00 08:06 Temp 97.5 97.8 97.5 97.5 97.8 97.5 Pulse 87 84 94 Resp 20 20 20 B/P (MAP) 150/88 (108) 157/93 (114) 141/98 (112) Pulse Ox 100 96 100 96 O2 Delivery Nasal Cannula Nasal Cannula Nasal Cannula Nasal Cannula O2 Flow Rate 3.0 3.0 3.0 3.0 09/25/16 09/25/16 08:20 08:21 Pulse 94 94 B/P (MAP) 141/98 141/98 Intake and Output 09/24/16 09/24/16 09/25/16 15:00 23:00 07:00 Intake Total 240 ml 500 ml Output Total 800 ml 1800 ml Balance 240 ml -800 ml -1300 ml JUHI FRANCIS III DO Sep 25, 2016 11:10
--- NOTE | 2016-09-25 13:26 | PDOC ---
CARDIOLOGY PROGRESS NOTE SUBJECTIVE: No acute events overnight. This afternoon he appears to be doing well. He sitting up in bed eating lunch. Dyspnea is much improved. OBJECTIVE: Vital SIgns: Vital Signs Date Time Temp Pulse Resp B/P (MAP) Pulse Ox O2 Delivery O2 Flow Rate FiO2 09/25/16 11:32 Nasal Cannula 3.0 09/25/16 11:00 97.3 92 20 144/70 (94) 93 97.3 I & O Intake and Output 09/25/16 07:00 Intake Total 740 ml Output Total 2600 ml Balance -1860 ml Intake Oral 740 ml Output Urine Total 2600 ml Objective: In general he is alert and oriented no acute distress Head and neck exam unremarkable Cardiac regular rate and rhythm Lungs with decreased rales at the bases Abdomen soft Left lower extremity warm to touch No focal neurologic deficits CURRENT MEDICATIONS: Current Medications Medications (Trade) Dose Ordered Sig/Nan Marie Start Time Stop Time Status Last Admin Dose Admin Acetylcysteine (Mucomyst 20% Oral Solution) 1,200 mg BID 09/24/16 11:30 09/26/16 11:29 09/25/16 10:39 1,200 MG Albuterol/ Ipratropium (Duoneb) 3 ml RTQID 09/23/16 12:00 09/23/16 12:56 DC Amlodipine Besylate (Norvasc) 10 mg DAILY 09/23/16 09:00 UNV Atorvastatin Calcium (Lipitor) 40 mg HS 09/22/16 21:00 09/24/16 20:23 40 MG Benzonatate (Tessalon Perle) 100 mg [id number] 09/23/16 09:30 09/25/16 08:20 100 MG Budesonide (Pulmicort) 0.5 mg RTBID 09/22/16 20:00 09/25/16 08:05 0.5 MG Clopidogrel Bisulfate (Plavix) 75 mg DAILYWBKFT 09/25/16 08:00 10/25/16 08:00 09/25/16 08:20 75 MG Darbepoetin Arsh (Aranesp) 60 mcg WEEKLYHS 09/24/16 21:00 09/24/16 20:23 60 MCG Dextrose (Dextrose 50%-Water Syringe) 12.5 gm PRN Q15MIN PRN 09/23/16 09:30 09/23/16 12:56 DC Diltiazem HCl (Cardizem 24hr Cd) 240 mg DAILY 09/22/16 15:00 09/25/16 08:21 240 MG Fentanyl Citrate (Fentanyl 5ml Vial) 250 mcg 1X ONCE 09/24/16 14:00 09/24/16 14:01 DC Furosemide (Lasix) 80 mg 1X ONCE 09/24/16 11:00 09/24/16 11:03 DC 09/24/16 15:56 80 MG Heparin Sodium (Porcine) (Heparin Sodium) 4,000 unit 1X ONCE 09/24/16 14:00 09/24/16 14:01 DC 09/24/16 14:00 6,800 UNIT Heparin Sodium/ Sodium Chloride 1,000 unit 1X ONCE 09/24/16 14:00 09/24/16 14:01 DC 09/24/16 14:52 1,000 UNIT Info (Do NOT chart on this entry -- for MONITORING) 1 each PRN DAILY PRN 09/24/16 14:15 09/26/16 14:14 Insulin Aspart (NovoLOG) 0-9 UNITS TIDWMEALS 09/23/16 12:00 09/24/16 18:34 4 UNITS Insulin Detemir (Levemir) 10 units QHS 09/24/16 21:00 09/24/16 20:25 10 UNITS Iodixanol (Visipaque 320) 100 ml 1X ONCE 09/24/16 14:00 09/24/16 14:01 DC 09/24/16 14:00 38 ML Iohexol (Omnipaque 300 Mg/ml) 100 ml 1X ONCE 09/24/16 14:00 09/24/16 14:01 DC 09/24/16 14:51 15 ML Isosorbide Mononitrate (Imdur) 120 mg DAILY 09/22/16 15:00 09/25/16 08:20 120 MG Labetalol HCl (Normodyne) 20 mg PRN Q2HR PRN 09/22/16 14:15 09/22/16 15:19 20 MG Levofloxacin/ Dextrose 150 ml @ 100 mls/hr Q48H 09/22/16 13:00 09/24/16 16:07 100 MLS/HR Levofloxacin/ Dextrose (Levaquin Per Pharmacy) 1 each PRN DAILY PRN 09/22/16 12:45 Lidocaine/Sodium Bicarbonate (Buffered Lidocaine 1%) 20 ml 1X ONCE 09/24/16 14:00 09/24/16 14:01 DC 09/24/16 14:00 4 ML Magnesium Sulfate/ Dextrose 50 ml @ 25 mls/hr PRN DAILY PRN 09/22/16 15:45 Midazolam HCl (Versed) 5 mg 1X ONCE 09/24/16 14:00 09/24/16 14:01 DC Nitroglycerin (Nitrostat) 0.4 mg PRN Q5MIN PRN 09/22/16 12:00 09/24/16 03:18 0.4 MG Ondansetron HCl (Zofran) 4 mg PRN Q8HRS PRN 09/22/16 12:30 09/23/16 12:29 DC Prednisone (Prednisone) 60 mg 1X ONCE 09/23/16 09:30 09/23/16 09:31 DC 09/23/16 10:00 60 MG Sodium Chloride 1,000 ml @ 100 mls/hr Q10H 09/22/16 15:45 09/23/16 07:45 DC 09/23/16 01:35 100 MLS/HR Tramadol HCl (Ultram) 50 mg PRN Q6HRS PRN 09/24/16 11:30 ASSESSMENT: 1. Acute on chronic diastolic heart failure 2. Peripheral arterial disease status post femoropopliteal bypass Problems: PLAN: Agree with holding diuresis today. Continue close monitoring. Continue present meds. . CLEO JUAREZ MD Sep 25, 2016 13:26
[2016-09-25 15:00] VITALS: BP 148/84
--- NOTE | 2016-09-25 16:39 | PDOC ---
SURGICAL PROGRESS NOTE Subjective no complaints Vital Signs Vital Signs Date Time Temp Pulse Resp B/P (MAP) Pulse Ox O2 Delivery O2 Flow Rate FiO2 09/25/16 15:54 Nasal Cannula 3.0 09/25/16 15:00 98.2 89 20 148/84 (105) 97 98.2 I&O Intake and Output 09/25/16 07:00 Intake Total 740 ml Output Total 2600 ml Balance -1860 ml Intake Oral 740 ml Output Urine Total 2600 ml Labs Laboratory Tests Test 09/23/16 17:09 09/23/16 19:19 09/23/16 21:00 09/24/16 04:00 Glucose (Fingerstick) 301 mg/dL (70-99) 327 mg/dL (70-99) Urine Opiates Screen Neg (NEG) Urine Methadone Screen Neg (NEG) Urine Barbiturates Neg (NEG) Urine Phencyclidine Screen Neg (NEG) Urine Amphetamine/Methamphetamine Neg (NEG) Urine Benzodiazepines Screen Neg (NEG) Urine Cocaine Screen Neg (NEG) Urine Cannabinoids Screen Neg (NEG) Urine Ethyl Alcohol Neg (NEG) Sodium Level 133 mmol/L (136-145) Potassium Level 5.0 mmol/L (3.5-5.1) Chloride Level 98 mmol/L (98-107) Carbon Dioxide Level 24 mmol/L (21-32) Anion Gap 11 (6-14) Blood Urea Nitrogen 59 mg/dL (8-26) Creatinine 3.0 mg/dL (0.7-1.3) Estimated GFR (Cockcroft-Gault) 24.9 Glucose Level 223 mg/dL (70-99) Calcium Level 8.8 mg/dL (8.5-10.1) Phosphorus Level 5.1 mg/dL (2.6-4.7) Magnesium Level 2.2 mg/dL (1.8-2.4) Creatine Kinase 67 U/L (39-308) Albumin 2.6 g/dL (3.4-5.0) Test 09/24/16 08:16 09/24/16 11:58 09/24/16 15:00 09/24/16 17:22 Glucose (Fingerstick) 204 mg/dL (70-99) 159 mg/dL (70-99) 137 mg/dL (70-99) 168 mg/dL (70-99) Test 09/24/16 20:17 09/25/16 05:20 09/25/16 07:35 09/25/16 11:41 Glucose (Fingerstick) 142 mg/dL (70-99) 73 mg/dL (70-99) 225 mg/dL (70-99) White Blood Count 9.1 x10^3/uL (4.0-11.0) Red Blood Count 2.56 x10^6/uL (4.30-5.70) Hemoglobin 7.3 g/dL (13.0-17.5) Hematocrit 22.5 % (39.0-53.0) Mean Corpuscular Volume 88 fL (79-100) Mean Corpuscular Hemoglobin 28 pg (25-35) Mean Corpuscular Hemoglobin Concent 32 g/dL (31-37) Red Cell Distribution Width 16.5 % (11.5-14.5) Platelet Count 376 x10^3/uL (140-400) Neutrophils (%) (Auto) 71 % (31-73) Lymphocytes (%) (Auto) 18 % (24-48) Monocytes (%) (Auto) 10 % (0-9) Eosinophils (%) (Auto) 0 % (0-3) Basophils (%) (Auto) 1 % (0-3) Neutrophils # (Auto) 6.5 x10^3uL (1.8-7.7) Lymphocytes # (Auto) 1.6 x10^3/uL (1.0-4.8) Monocytes # (Auto) 0.9 x10^3/uL (0.0-1.1) Eosinophils # (Auto) 0.0 x10^3/uL (0.0-0.7) Basophils # (Auto) 0.0 x10^3/uL (0.0-0.2) Sodium Level 137 mmol/L (136-145) Potassium Level 4.2 mmol/L (3.5-5.1) Chloride Level 102 mmol/L (98-107) Carbon Dioxide Level 27 mmol/L (21-32) Anion Gap 8 (6-14) Blood Urea Nitrogen 56 mg/dL (8-26) Creatinine 2.8 mg/dL (0.7-1.3) Estimated GFR (Cockcroft-Gault) 26.9 Glucose Level 80 mg/dL (70-99) Calcium Level 8.5 mg/dL (8.5-10.1) Phosphorus Level 5.3 mg/dL (2.6-4.7) Magnesium Level 2.1 mg/dL (1.8-2.4) Creatine Kinase 45 U/L (39-308) Albumin 2.4 g/dL (3.4-5.0) Laboratory Tests Test 09/24/16 17:22 09/24/16 20:17 09/25/16 05:20 09/25/16 07:35 Glucose (Fingerstick) 168 mg/dL (70-99) 142 mg/dL (70-99) 73 mg/dL (70-99) White Blood Count 9.1 x10^3/uL (4.0-11.0) Red Blood Count 2.56 x10^6/uL (4.30-5.70) Hemoglobin 7.3 g/dL (13.0-17.5) Hematocrit 22.5 % (39.0-53.0) Mean Corpuscular Volume 88 fL (79-100) Mean Corpuscular Hemoglobin 28 pg (25-35) Mean Corpuscular Hemoglobin Concent 32 g/dL (31-37) Red Cell Distribution Width 16.5 % (11.5-14.5) Platelet Count 376 x10^3/uL (140-400) Neutrophils (%) (Auto) 71 % (31-73) Lymphocytes (%) (Auto) 18 % (24-48) Monocytes (%) (Auto) 10 % (0-9) Eosinophils (%) (Auto) 0 % (0-3) Basophils (%) (Auto) 1 % (0-3) Neutrophils # (Auto) 6.5 x10^3uL (1.8-7.7) Lymphocytes # (Auto) 1.6 x10^3/uL (1.0-4.8) Monocytes # (Auto) 0.9 x10^3/uL (0.0-1.1) Eosinophils # (Auto) 0.0 x10^3/uL (0.0-0.7) Basophils # (Auto) 0.0 x10^3/uL (0.0-0.2) Sodium Level 137 mmol/L (136-145) Potassium Level 4.2 mmol/L (3.5-5.1) Chloride Level 102 mmol/L (98-107) Carbon Dioxide Level 27 mmol/L (21-32) Anion Gap 8 (6-14) Blood Urea Nitrogen 56 mg/dL (8-26) Creatinine 2.8 mg/dL (0.7-1.3) Estimated GFR (Cockcroft-Gault) 26.9 Glucose Level 80 mg/dL (70-99) Calcium Level 8.5 mg/dL (8.5-10.1) Phosphorus Level 5.3 mg/dL (2.6-4.7) Magnesium Level 2.1 mg/dL (1.8-2.4) Creatine Kinase 45 U/L (39-308) Albumin 2.4 g/dL (3.4-5.0) Test 09/25/16 11:41 Glucose (Fingerstick) 225 mg/dL (70-99) I have reviewed the following angiogram of the right leg. 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 Will plan for Tuesday schedule permitting. Problems: PAT KAUR II, MD Sep 25, 2016 16:39
[2016-09-25 19:15] VITALS: BP 155/78
[2016-09-25] MEDS: ATORVASTATIN CALCIUM 40 MG TABLET. PO SCH (21:44)
[2016-09-25] MEDS: INSULIN DETEMIR 300 UNITS/3 ML INSULN.PEN. SQ SCH (21:49)
[2016-09-25 23:08] VITALS: BP 137/69
[2016-09-26 03:38] VITALS: BP 160/90
[2016-09-26] MEDS: traMADol 50 MG TABLET PO PRN ×2 (03:38→20:38)
[2016-09-26 04:16] LABS: ALBUMIN 2.4 g/dL (3.4-5.0); CALCIUM 8.4 mg/dL (8.5-10.1); CREATININE 2.9 mg/dL (0.7-1.3); GFR 25.9; PHOSPHORUS 5.3 mg/dL (2.6-4.7); POTASSIUM 4.5 mmol/L (3.5-5.1)
[2016-09-26 06:10] LABS: C3 COMPLEMENT 99 mg/dL (82-167); C4 COMPLEMENT 52 mg/dL (14-44)
[2016-09-26] MEDS: IPRATRPIUM/ALBUTEROL 0.5/2.5MG 3 ML NEBU. NEB SCH ×4 (07:49→20:25)
[2016-09-26] MEDS: BUDESONIDE 0.5 MG/2 ML NEBU. NEB SCH ×2 (07:49→20:25)
[2016-09-26 07:56] VITALS: BP 145/72
[2016-09-26] MEDS: INSULIN ASPART 300 UNITS/3 ML INSULN.PEN SQ SCH ×3 (08:00→17:00)
[2016-09-26] MEDS: CLOPIDOGREL BISULFATE 75 MG TABLET PO SCH (08:43)
[2016-09-26] MEDS: ISOSORBIDE MONONITRATE ER 30 MG TAB.ER.24H PO SCH (08:43)
[2016-09-26] MEDS: BENZONATATE 100 MG CAPSULE. PO SCH ×3 (08:43→20:38)
[2016-09-26] MEDS: ACETYLCYSTEINE 20% ORAL SOLN 600 MG/3 ML SYRINGE. PO SCH (08:51)
[2016-09-26 09:25] LABS: MAGNESIUM 2.1 mg/dL (1.8-2.4)
[2016-09-26 10:53] VITALS: BP 160/82
--- NOTE | 2016-09-26 11:14 | PDOC ---
PULMONARY PROGRESS NOTES Subjective no SOA sats stable Vitals Vital Signs Date Time Temp Pulse Resp B/P (MAP) Pulse Ox O2 Delivery O2 Flow Rate FiO2 09/26/16 10:53 97.7 101 18 160/82 (108) 97 Room Air 97.7 09/26/16 07:51 3.0 General: Alert, No acute distress HEENT: Other Lungs: Other (bl decreased bs) Cardiovascular: S1, S2 Abdomen: Soft, Non-tender, Other Extremities: Other Labs Laboratory Tests Test 09/24/16 11:58 09/24/16 15:00 09/24/16 17:22 09/24/16 20:17 Glucose (Fingerstick) 159 mg/dL (70-99) 137 mg/dL (70-99) 168 mg/dL (70-99) 142 mg/dL (70-99) Test 09/25/16 05:20 09/25/16 07:35 09/25/16 11:41 09/25/16 16:38 White Blood Count 9.1 x10^3/uL (4.0-11.0) Red Blood Count 2.56 x10^6/uL (4.30-5.70) Hemoglobin 7.3 g/dL (13.0-17.5) Hematocrit 22.5 % (39.0-53.0) Mean Corpuscular Volume 88 fL (79-100) Mean Corpuscular Hemoglobin 28 pg (25-35) Mean Corpuscular Hemoglobin Concent 32 g/dL (31-37) Red Cell Distribution Width 16.5 % (11.5-14.5) Platelet Count 376 x10^3/uL (140-400) Neutrophils (%) (Auto) 71 % (31-73) Lymphocytes (%) (Auto) 18 % (24-48) Monocytes (%) (Auto) 10 % (0-9) Eosinophils (%) (Auto) 0 % (0-3) Basophils (%) (Auto) 1 % (0-3) Neutrophils # (Auto) 6.5 x10^3uL (1.8-7.7) Lymphocytes # (Auto) 1.6 x10^3/uL (1.0-4.8) Monocytes # (Auto) 0.9 x10^3/uL (0.0-1.1) Eosinophils # (Auto) 0.0 x10^3/uL (0.0-0.7) Basophils # (Auto) 0.0 x10^3/uL (0.0-0.2) Sodium Level 137 mmol/L (136-145) Potassium Level 4.2 mmol/L (3.5-5.1) Chloride Level 102 mmol/L (98-107) Carbon Dioxide Level 27 mmol/L (21-32) Anion Gap 8 (6-14) Blood Urea Nitrogen 56 mg/dL (8-26) Creatinine 2.8 mg/dL (0.7-1.3) Estimated GFR (Cockcroft-Gault) 26.9 Glucose Level 80 mg/dL (70-99) Calcium Level 8.5 mg/dL (8.5-10.1) Phosphorus Level 5.3 mg/dL (2.6-4.7) Magnesium Level 2.1 mg/dL (1.8-2.4) Creatine Kinase 45 U/L (39-308) Albumin 2.4 g/dL (3.4-5.0) Glucose (Fingerstick) 73 mg/dL (70-99) 225 mg/dL (70-99) 172 mg/dL (70-99) Test 09/25/16 20:53 09/26/16 03:40 09/26/16 07:05 Glucose (Fingerstick) 160 mg/dL (70-99) 104 mg/dL (70-99) Sodium Level 137 mmol/L (136-145) Potassium Level 4.5 mmol/L (3.5-5.1) Chloride Level 101 mmol/L (98-107) Carbon Dioxide Level 29 mmol/L (21-32) Anion Gap 7 (6-14) Blood Urea Nitrogen 60 mg/dL (8-26) Creatinine 2.9 mg/dL (0.7-1.3) Estimated GFR (Cockcroft-Gault) 25.9 Glucose Level 134 mg/dL (70-99) Calcium Level 8.4 mg/dL (8.5-10.1) Phosphorus Level 5.3 mg/dL (2.6-4.7) Magnesium Level 2.1 mg/dL (1.8-2.4) Creatine Kinase 43 U/L (39-308) Albumin 2.4 g/dL (3.4-5.0) Laboratory Tests Test 09/25/16 11:41 09/25/16 16:38 09/25/16 20:53 09/26/16 03:40 Glucose (Fingerstick) 225 mg/dL (70-99) 172 mg/dL (70-99) 160 mg/dL (70-99) Sodium Level 137 mmol/L (136-145) Potassium Level 4.5 mmol/L (3.5-5.1) Chloride Level 101 mmol/L (98-107) Carbon Dioxide Level 29 mmol/L (21-32) Anion Gap 7 (6-14) Blood Urea Nitrogen 60 mg/dL (8-26) Creatinine 2.9 mg/dL (0.7-1.3) Estimated GFR (Cockcroft-Gault) 25.9 Glucose Level 134 mg/dL (70-99) Calcium Level 8.4 mg/dL (8.5-10.1) Phosphorus Level 5.3 mg/dL (2.6-4.7) Magnesium Level 2.1 mg/dL (1.8-2.4) Creatine Kinase 43 U/L (39-308) Albumin 2.4 g/dL (3.4-5.0) Test 09/26/16 07:05 Glucose (Fingerstick) 104 mg/dL (70-99) Medications Active Scripts Medications Dose Route/Sig Max Daily Dose Days Date Category Levofloxacin 750 Mg Tablet 1 Tab PO DAILY 09/21/16 Rx Percocet 5-325 Mg Tablet (Oxycodone/Acetaminophen) 1 Each Tablet 1 Tab PO PRN Q6HRS PRN 07/30/16 Reported Advair 100-50 Diskus (Fluticasone/Salmeterol) 1 Each Disk.w.dev 1 Puff IH BID 06/21/16 Reported Spiriva Respimat (Tiotropium Farber) 4 Gm Mist.inhal 2.5 Gm IH DAILY 06/21/16 Reported Symbicort 160-4.5 Mcg Inhaler (Budesonide/Formoterol Fumarate) 10.2 Gm Hfa.aer.ad 2 Puff IH BID 06/21/16 Reported Atorvastatin Calcium 20 Mg Tablet 20 Mg PO HS 06/21/16 Reported Lisinopril-Hctz 10-12.5 Mg Tab (Lisinopril/Hydrochlorothiazide) 1 Each Tablet 1 Tab PO DAILY 06/21/16 Reported Isosorbide Mononitrate Er (Isosorbide Mononitrate) 120 Mg Tab.er.24h 120 Mg PO DAILY 06/21/16 Reported Levemir Flextouch (Insulin Detemir) 100 Unit/1 Ml Insuln.pen 20 Units SQ QHS 30 11/24/15 Rx Novolog Flexpen (Insulin Aspart) 100 Unit/1 Ml Insuln.pen 10 Units SQ TIDAC 30 11/24/15 Rx Novolin N (Nph, Human Insulin Isophane) 100 Unit/1 Ml Vial 0 SQ 11/18/15 Reported Promethazine-Codeine Syrup (Promethazine Hcl/Codeine) 118 Ml Syrup 5 Ml PO Q4-6HRS 11/18/15 Reported Diltiazem 24HR Cd (Diltiazem Hcl) 240 Mg Cap.er.24h 240 Mg PO DAILY 11/18/15 Reported NITROGLYCERIN SubLingual (Nitroglycerin) 0.4 Mg Tab.subl 0.4 Mg SL PRN Q5MIN PRN 11/18/15 Reported Atorvastatin Calcium 40 Mg Tablet 40 Mg PO HS 11/18/15 Reported Impression . 1. Acute encephalopathy secondary to severe hypoglycemia, now completely resolved. The mental status has improved. 2. History of chronic obstructive airway disease, clinically compensated. 3. History of extensive pulmonary embolism, resulting in shock in June. Status post treatment with anticoagulation Xarelto with last CT angiogram done on 2016 has shown resolution of pulmonary embolism.He is s/p IVC filter. 3 Months of AC was recommended. off now 4. History of IVC filter placement in June. 5. 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 6. Abnormal CXR with mild CHF 7. renal failure, Plan . 1. Hold further lasix 2. Continue present nasal cannula. 3. Monitor blood sugars closely. 4. Management of diabetes per PCP. 5. Monitor hemoglobin closely. 6. Discussed with RN. 7. Pt has resolution of PE by last CT. 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 no further AC 8. HD per renal if needed IVANA COX MD Sep 26, 2016 11:14
--- NOTE | 2016-09-26 13:47 | PDOC ---
PROGRESS NOTES Chief Complaint Chief Complaint 1, Hypoglycemia with acute encephalopathy POA, resolved 2. 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 Mod PCM 4. High fall risk 5. CLaudication R>L 6. Gen weakness Old dx: 2. HX bilateral PE with cardiac arrest ([facility] 2016) sec to PE 3. CLean cardiac cath 4.Hx Non-occlusive thrombus, R leg (07/15) 5. COPD on home o2? exacerbation - wheezy 6. DM2; insulin requiring with HYPOGLYCEMIA 7. Hx Oliguric Hyperkalemic renal failure - stable 8 Dyslipidemia on statin 9. HX significant angioedema likely sec to ADAN inhib needing intubation (06/2016) History of Present Illness History of Present Illness Pt eating breakfast. Doesnt want to leave DW RN Vitals Vitals Vital Signs Date Time Temp Pulse Resp B/P (MAP) Pulse Ox O2 Delivery O2 Flow Rate FiO2 09/26/16 11:27 98 Room Air 09/26/16 11:15 3.0 09/26/16 10:53 97.7 101 18 160/82 (108) 97.7 Physical Exam General: Alert, Oriented X3, Cooperative, mild distress Heart: Regular rate (Sinus tach), Normal S1, Normal S2, Other (3/6 systolic murmur to LLS border) Lungs: Other (bl decreased bs) Abdomen: Soft, No tenderness Extremities: No clubbing, No edema, Normal pulses Skin: No rashes Labs LABS Laboratory Tests Test 09/25/16 16:38 09/25/16 20:53 09/26/16 03:40 09/26/16 07:05 Glucose (Fingerstick) 172 mg/dL (70-99) 160 mg/dL (70-99) 104 mg/dL (70-99) Sodium Level 137 mmol/L (136-145) Potassium Level 4.5 mmol/L (3.5-5.1) Chloride Level 101 mmol/L (98-107) Carbon Dioxide Level 29 mmol/L (21-32) Anion Gap 7 (6-14) Blood Urea Nitrogen 60 mg/dL (8-26) Creatinine 2.9 mg/dL (0.7-1.3) Estimated GFR (Cockcroft-Gault) 25.9 Glucose Level 134 mg/dL (70-99) Calcium Level 8.4 mg/dL (8.5-10.1) Phosphorus Level 5.3 mg/dL (2.6-4.7) Magnesium Level 2.1 mg/dL (1.8-2.4) Creatine Kinase 43 U/L (39-308) Albumin 2.4 g/dL (3.4-5.0) Test 09/26/16 11:40 Glucose (Fingerstick) 191 mg/dL (70-99) Review of Systems Review of Systems co weakness co pain Assessment and Plan Assessmemt and Plan Problems Medical Problems: (1) Hypoglycemia Status: Acute 1, Hypoglycemia with acute encephalopathy POA, resolved 2. 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 Mod PCM 4. High fall risk 5. CLaudication R>L 6. Gen weakness Old dx: 2. HX bilateral PE with cardiac arrest ([facility] 2016) sec to PE 3. CLean cardiac cath 4.Hx Non-occlusive thrombus, R leg (07/15) 5. COPD on home o2? exacerbation - wheezy 6. DM2; insulin requiring with HYPOGLYCEMIA 7. Hx Oliguric Hyperkalemic renal failure - stable 8 Dyslipidemia on statin 9. HX significant angioedema likely sec to ADAN inhib needing intubation (06/2016) Plan Fem pop bypass in am recheck labs ptot wound longterm meds SNU eval Problems: Comment Review of Relevant I have reviewed the following items valerie (where applicable) has been applied. Labs Laboratory Tests Test 09/24/16 15:00 09/24/16 17:22 09/24/16 20:17 09/25/16 05:20 Glucose (Fingerstick) 137 mg/dL (70-99) 168 mg/dL (70-99) 142 mg/dL (70-99) White Blood Count 9.1 x10^3/uL (4.0-11.0) Red Blood Count 2.56 x10^6/uL (4.30-5.70) Hemoglobin 7.3 g/dL (13.0-17.5) Hematocrit 22.5 % (39.0-53.0) Mean Corpuscular Volume 88 fL (79-100) Mean Corpuscular Hemoglobin 28 pg (25-35) Mean Corpuscular Hemoglobin Concent 32 g/dL (31-37) Red Cell Distribution Width 16.5 % (11.5-14.5) Platelet Count 376 x10^3/uL (140-400) Neutrophils (%) (Auto) 71 % (31-73) Lymphocytes (%) (Auto) 18 % (24-48) Monocytes (%) (Auto) 10 % (0-9) Eosinophils (%) (Auto) 0 % (0-3) Basophils (%) (Auto) 1 % (0-3) Neutrophils # (Auto) 6.5 x10^3uL (1.8-7.7) Lymphocytes # (Auto) 1.6 x10^3/uL (1.0-4.8) Monocytes # (Auto) 0.9 x10^3/uL (0.0-1.1) Eosinophils # (Auto) 0.0 x10^3/uL (0.0-0.7) Basophils # (Auto) 0.0 x10^3/uL (0.0-0.2) Sodium Level 137 mmol/L (136-145) Potassium Level 4.2 mmol/L (3.5-5.1) Chloride Level 102 mmol/L (98-107) Carbon Dioxide Level 27 mmol/L (21-32) Anion Gap 8 (6-14) Blood Urea Nitrogen 56 mg/dL (8-26) Creatinine 2.8 mg/dL (0.7-1.3) Estimated GFR (Cockcroft-Gault) 26.9 Glucose Level 80 mg/dL (70-99) Calcium Level 8.5 mg/dL (8.5-10.1) Phosphorus Level 5.3 mg/dL (2.6-4.7) Magnesium Level 2.1 mg/dL (1.8-2.4) Creatine Kinase 45 U/L (39-308) Albumin 2.4 g/dL (3.4-5.0) Test 09/25/16 07:35 09/25/16 11:41 09/25/16 16:38 09/25/16 20:53 Glucose (Fingerstick) 73 mg/dL (70-99) 225 mg/dL (70-99) 172 mg/dL (70-99) 160 mg/dL (70-99) Test 09/26/16 03:40 09/26/16 07:05 09/26/16 11:40 Sodium Level 137 mmol/L (136-145) Potassium Level 4.5 mmol/L (3.5-5.1) Chloride Level 101 mmol/L (98-107) Carbon Dioxide Level 29 mmol/L (21-32) Anion Gap 7 (6-14) Blood Urea Nitrogen 60 mg/dL (8-26) Creatinine 2.9 mg/dL (0.7-1.3) Estimated GFR (Cockcroft-Gault) 25.9 Glucose Level 134 mg/dL (70-99) Calcium Level 8.4 mg/dL (8.5-10.1) Phosphorus Level 5.3 mg/dL (2.6-4.7) Magnesium Level 2.1 mg/dL (1.8-2.4) Creatine Kinase 43 U/L (39-308) Albumin 2.4 g/dL (3.4-5.0) Glucose (Fingerstick) 104 mg/dL (70-99) 191 mg/dL (70-99) Laboratory Tests Test 09/25/16 16:38 09/25/16 20:53 09/26/16 03:40 09/26/16 07:05 Glucose (Fingerstick) 172 mg/dL (70-99) 160 mg/dL (70-99) 104 mg/dL (70-99) Sodium Level 137 mmol/L (136-145) Potassium Level 4.5 mmol/L (3.5-5.1) Chloride Level 101 mmol/L (98-107) Carbon Dioxide Level 29 mmol/L (21-32) Anion Gap 7 (6-14) Blood Urea Nitrogen 60 mg/dL (8-26) Creatinine 2.9 mg/dL (0.7-1.3) Estimated GFR (Cockcroft-Gault) 25.9 Glucose Level 134 mg/dL (70-99) Calcium Level 8.4 mg/dL (8.5-10.1) Phosphorus Level 5.3 mg/dL (2.6-4.7) Magnesium Level 2.1 mg/dL (1.8-2.4) Creatine Kinase 43 U/L (39-308) Albumin 2.4 g/dL (3.4-5.0) Test 09/26/16 11:40 Glucose (Fingerstick) 191 mg/dL (70-99) Microbiology 09/22/16 Blood Culture - Preliminary, Resulted NO GROWTH AFTER 4 DAYS Medications Current Medications Dextrose (Dextrose 50%-Water Syringe) 25 gm STK-MED ONCE IV ; Start 09/22/16 at 10:39; Stop 09/22/16 at 10:40; Status DC Dextrose 500 ml @ 30 mls/hr 1X ONCE IV Last administered on 09/22/16 11:52; Start 09/22/16 at 11:45; Stop 09/22/16 at 17:38; Status DC Dextrose (Dextrose 50%-Water Syringe) 25 gm STK-MED ONCE IV ; Start 09/22/16 at 11:45; Stop 09/22/16 at 11:46; Status DC Dextrose (Dextrose 50%-Water Syringe) 25 gm 1X ONCE IV Last administered on 10:45; Start 09/22/16 at 12:00; Stop 09/22/16 at 12:01; Status DC Dextrose (Dextrose 50%-Water Syringe) 25 gm 1X ONCE IV Last administered on 11:40; Start 09/22/16 at 12:00; Stop 09/22/16 at 12:01; Status DC Nitroglycerin (Nitrostat) 0.4 mg PRN Q5MIN PRN SL CHEST PAIN Last administered on 09/24/16 03:18; Start 09/22/16 at 12:00 Ondansetron HCl (Zofran) 4 mg PRN Q8HRS PRN IV NAUSEA/VOMITING; Start 09/22/16 at 12:30; Stop 09/23/16 at 12:29; Status DC Levofloxacin/ Dextrose (Levaquin Per Pharmacy) 1 each PRN DAILY PRN MC SEE COMMENTS; Start 09/22/16 at 12:45; Stop 09/25/16 at 15:18; Status DC Levofloxacin/ Dextrose 150 ml @ 100 mls/hr Q48H IV Last administered on 13:32; Start 09/22/16 at 13:00 Sodium Chloride 500 ml @ 1,000 mls/hr 1X ONCE IV Last administered on 13:10; Start 09/22/16 at 13:15; Stop 09/22/16 at 13:44; Status DC Dextrose (Dextrose 50%-Water Syringe) 25 gm 1X ONCE IV Last administered on 13:11; Start 09/22/16 at 13:15; Stop 09/22/16 at 13:16; Status DC Insulin Aspart (NovoLOG) 0-5 UNITS TIDWMEALS SQ Last administered on 09/22/16 18:17; Start 09/22/16 at 17:00; Stop 09/23/16 at 09:23; Status DC Dextrose (Dextrose 50%-Water Syringe) 12.5 gm PRN Q15MIN PRN IV SEE COMMENTS Last administered on 09/22/16 13:58; Start 09/22/16 at 14:00 Labetalol HCl (Normodyne) 20 mg PRN Q2HR PRN IVP HYPERTENSION, SEE COMMENTS Last administered on 09/22/16 15:19; Start 09/22/16 at 14:15 Amlodipine Besylate (Norvasc) 10 mg DAILY PO ; Start 09/23/16 at 09:00; Status UNV Atorvastatin Calcium (Lipitor) 40 mg HS PO Last administered on 09/25/16 21:44 ; Start 09/22/16 at 21:00 Diltiazem HCl (Cardizem 24hr Cd) 240 mg DAILY PO Last administered on 09/26/16 08:43; Start 09/22/16 at 15:00 Isosorbide Mononitrate (Imdur) 120 mg DAILY PO Last administered on 09/26/16 08 :43; Start 09/22/16 at 15:00 Albuterol/ Ipratropium (Duoneb) 3 ml STK-MED ONCE .ROUTE ; Start 09/22/16 at 15: 06; Stop 09/22/16 at 15:07; Status DC Albuterol/ Ipratropium (Duoneb) 3 ml RTQID NEB Last administered on 09/26/16 11 :26; Start 09/22/16 at 16:00 Budesonide (Pulmicort) 0.5 mg RTBID NEB Last administered on 09/26/16 07:49; Start 09/22/16 at 20:00 Magnesium Sulfate/ Dextrose 50 ml @ 25 mls/hr PRN DAILY PRN IV for Mag < 1.7 on am labs; Start 09/22/16 at 15:45 Sodium Chloride 1,000 ml @ 100 mls/hr Q10H IV Last administered on 09/23/16 01 :35; Start 09/22/16 at 15:45; Stop 09/23/16 at 07:45; Status DC Dextrose 1,000 ml @ 50 mls/hr Q20H IV Last administered on 09/22/16 17:39; Start 09/22/16 at 17:45; Stop 09/23/16 at 07:45; Status DC Insulin Aspart (NovoLOG) 0-9 UNITS TIDWMEALS SQ Last administered on 09/26/16 12:31; Start 09/23/16 at 12:00 Dextrose (Dextrose 50%-Water Syringe) 12.5 gm PRN Q15MIN PRN IV SEE COMMENTS; Start 09/23/16 at 09:30; Stop 09/23/16 at 12:56; Status DC Albuterol/ Ipratropium (Duoneb) 3 ml RTQID NEB ; Start 09/23/16 at 12:00; Stop at 12:56; Status DC Prednisone (Prednisone) 60 mg 1X ONCE PO Last administered on 09/23/16 10:00; Start 09/23/16 at 09:30; Stop 09/23/16 at 09:31; Status DC Benzonatate (Tessalon Perle) 100 mg [id number] PO Last administered on 09/26/16 13: 39; Start 09/23/16 at 09:30 Furosemide (Lasix) 20 mg 1X ONCE IVP Last administered on 09/23/16 17:30; Start 09/23/16 at 17:30; Stop 09/23/16 at 17:31; Status DC Furosemide (Lasix) 80 mg 1X ONCE IVP Last administered on 09/24/16 15:56; Start 09/24/16 at 11:00; Stop 09/24/16 at 11:03; Status DC Acetylcysteine (Mucomyst 20% Oral Solution) 1,200 mg BID PO Last administered on 09/26/16 08:51; Start 09/24/16 at 11:30; Stop 09/26/16 at 11:29; Status DC Darbepoetin Arsh (Aranesp) 60 mcg WEEKLYHS SQ Last administered on 09/24/16 20: 23; Start 09/24/16 at 21:00 Tramadol HCl (Ultram) 50 mg PRN Q6HRS PRN PO PAIN Last administered on 03:38; Start 09/24/16 at 11:30 Iohexol (Omnipaque 300 Mg/ml) 100 ml STK-MED ONCE .ROUTE ; Start 09/24/16 at 12: 12; Stop 09/24/16 at 12:13; Status DC Lidocaine/Sodium Bicarbonate (Buffered Lidocaine 1%) 20 ml STK-MED ONCE IJ ; Start 09/24/16 at 12:12; Stop 09/24/16 at 12:13; Status DC Midazolam HCl (Versed) 5 mg STK-MED ONCE .ROUTE ; Start 09/24/16 at 12:12; Stop 09/24/16 at 12:13; Status DC Fentanyl Citrate (Fentanyl 5ml Vial) 250 mcg STK-MED ONCE .ROUTE ; Start at 12:12; Stop 09/24/16 at 12:13; Status DC Heparin Sodium/ Sodium Chloride 2,000 ml @ As Directed STK-MED ONCE .ROUTE ; Start 09/24/16 at 12:13; Stop 09/24/16 at 12:14; Status DC Iodixanol (Visipaque 320) 100 ml STK-MED ONCE .ROUTE ; Start 09/24/16 at 12:13; Stop 09/24/16 at 12:14; Status DC Heparin Sodium (Porcine) (Heparin Sodium) 10,000 unit STK-MED ONCE .ROUTE ; Start 09/24/16 at 12:15; Stop 09/24/16 at 12:16; Status DC Insulin Detemir (Levemir) 10 units QHS SQ Last administered on 09/25/16 21:49; Start 09/24/16 at 21:00 Heparin Sodium/ Sodium Chloride 1,000 unit 1X ONCE IART Last administered on 14:52; Start 09/24/16 at 14:00; Stop 09/24/16 at 14:01; Status DC Lidocaine/Sodium Bicarbonate (Buffered Lidocaine 1%) 20 ml 1X ONCE IJ Last administered on 09/24/16 14:00; Start 09/24/16 at 14:00; Stop 09/24/16 at 14:01; Status DC Midazolam HCl (Versed) 5 mg 1X ONCE IV ; Start 09/24/16 at 14:00; Stop 09/24/16 at 14:01; Status DC Fentanyl Citrate (Fentanyl 5ml Vial) 250 mcg 1X ONCE IV ; Start 09/24/16 at 14: 00; Stop 09/24/16 at 14:01; Status DC Iohexol (Omnipaque 300 Mg/ml) 100 ml 1X ONCE IART Last administered on 14:51; Start 09/24/16 at 14:00; Stop 09/24/16 at 14:01; Status DC Iodixanol (Visipaque 320) 100 ml 1X ONCE IART Last administered on 09/24/16 14 :00; Start 09/24/16 at 14:00; Stop 09/24/16 at 14:01; Status DC Heparin Sodium (Porcine) (Heparin Sodium) 4,000 unit 1X ONCE IV Last administered on 09/24/16 14:00; Start 09/24/16 at 14:00; Stop 09/24/16 at 14:01; Status DC Info (Do NOT chart on this entry -- for MONITORING) 1 each PRN DAILY PRN MC SEE COMMENTS; Start 09/24/16 at 14:15; Stop 09/26/16 at 14:14 Clopidogrel Bisulfate (Plavix) 300 mg 1X ONCE PO Last administered on 16:01; Start 09/24/16 at 15:30; Stop 09/24/16 at 15:31; Status DC Clopidogrel Bisulfate (Plavix) 75 mg DAILYWBKFT PO Last administered on 08:43; Start 09/25/16 at 08:00; Stop 10/25/16 at 08:00 Active Scripts Active Levofloxacin 750 Mg Tablet 1 Tab PO DAILY Levemir Flextouch (Insulin Detemir) 100 Unit/1 Ml Insuln.pen 20 Units SQ QHS 30 Days Novolog Flexpen (Insulin Aspart) 100 Unit/1 Ml Insuln.pen 10 Units SQ TIDAC 30 Days Reported Percocet 5-325 Mg Tablet (Oxycodone/Acetaminophen) 1 Each Tablet 1 Tab PO PRN Q6HRS PRN Advair 100-50 Diskus (Fluticasone/Salmeterol) 1 Each Disk.w.dev 1 Puff IH BID Spiriva Respimat (Tiotropium Chandler) 4 Gm Mist.inhal 2.5 Gm IH DAILY Symbicort 160-4.5 Mcg Inhaler (Budesonide/Formoterol Fumarate) 10.2 Gm Hfa.aer.ad 2 Puff IH BID Atorvastatin Calcium 20 Mg Tablet 20 Mg PO HS Lisinopril-Hctz 10-12.5 Mg Tab (Lisinopril/Hydrochlorothiazide) 1 Each Tablet 1 Tab PO DAILY Isosorbide Mononitrate Er (Isosorbide Mononitrate) 120 Mg Tab.er.24h 120 Mg PO DAILY Novolin N (Nph, Human Insulin Isophane) 100 Unit/1 Ml Vial 0 SQ Promethazine-Codeine Syrup (Promethazine Hcl/Codeine) 118 Ml Syrup 5 Ml PO Q4- 6HRS Diltiazem 24HR Cd (Diltiazem Hcl) 240 Mg Cap.er.24h 240 Mg PO DAILY NITROGLYCERIN SubLingual (Nitroglycerin) 0.4 Mg Tab.subl 0.4 Mg SL PRN Q5MIN PRN Atorvastatin Calcium 40 Mg Tablet 40 Mg PO HS Vitals/I & O Vital Sign - Last 24 Hours 09/25/16 09/25/16 09/25/16 09/25/16 15:00 15:54 19:15 19:58 Temp 98.2 97.7 98.2 97.7 Pulse 89 85 Resp 20 18 B/P (MAP) 148/84 (105) 155/78 (103) Pulse Ox 97 100 O2 Delivery Nasal Cannula Nasal Cannula Nasal Cannula Nasal Cannula O2 Flow Rate 3.0 3.0 3.0 3.0 09/25/16 09/25/16 09/26/16 09/26/16 20:00 23:08 03:38 03:38 Temp 98.5 98.4 98.5 98.4 Pulse 85 83 Resp 18 18 B/P (MAP) 137/69 (91) 160/90 (113) Pulse Ox 98 91 O2 Delivery Nasal Cannula Room Air Room Air Nasal Cannula O2 Flow Rate 3.0 3.0 3.0 09/26/16 09/26/16 09/26/16 09/26/16 05:41 07:51 07:56 08:43 Temp 96.3 96.3 Pulse 105 105 Resp 18 B/P (MAP) 145/72 (96) 145/72 Pulse Ox 98 96 O2 Delivery Nasal Cannula Nasal Cannula Room Air O2 Flow Rate 3.0 09/26/16 09/26/16 09/26/16 09/26/16 08:43 10:53 11:15 11:27 Temp 97.7 97.7 Pulse 105 101 Resp 18 B/P (MAP) 145/72 160/82 (108) Pulse Ox 97 98 O2 Delivery Room Air Nasal Cannula Room Air O2 Flow Rate 3.0 Intake and Output 09/25/16 09/25/16 09/26/16 15:00 23:00 07:00 Intake Total 400 ml 240 ml Output Total 750 ml 300 ml Balance -350 ml -60 ml JUHI FRANCIS III DO Sep 26, 2016 13:47
--- NOTE | 2016-09-26 14:05 | PDOC ---
SURGICAL PROGRESS NOTE Subjective S: no complaints. Explained bypass surgery with wound debridement Vital Signs Vital Signs Date Time Temp Pulse Resp B/P (MAP) Pulse Ox O2 Delivery O2 Flow Rate FiO2 09/26/16 11:27 98 Room Air 09/26/16 11:15 3.0 09/26/16 10:53 97.7 101 18 160/82 (108) 97.7 I&O Intake and Output 09/26/16 07:00 Intake Total 640 ml Output Total 1050 ml Balance -410 ml Intake Oral 640 ml Output Urine Total 1050 ml Extremities: Other (dry gangrene right heel and spotty digital gangrene) Labs Laboratory Tests Test 09/24/16 15:00 09/24/16 17:22 09/24/16 20:17 09/25/16 05:20 Glucose (Fingerstick) 137 mg/dL (70-99) 168 mg/dL (70-99) 142 mg/dL (70-99) White Blood Count 9.1 x10^3/uL (4.0-11.0) Red Blood Count 2.56 x10^6/uL (4.30-5.70) Hemoglobin 7.3 g/dL (13.0-17.5) Hematocrit 22.5 % (39.0-53.0) Mean Corpuscular Volume 88 fL (79-100) Mean Corpuscular Hemoglobin 28 pg (25-35) Mean Corpuscular Hemoglobin Concent 32 g/dL (31-37) Red Cell Distribution Width 16.5 % (11.5-14.5) Platelet Count 376 x10^3/uL (140-400) Neutrophils (%) (Auto) 71 % (31-73) Lymphocytes (%) (Auto) 18 % (24-48) Monocytes (%) (Auto) 10 % (0-9) Eosinophils (%) (Auto) 0 % (0-3) Basophils (%) (Auto) 1 % (0-3) Neutrophils # (Auto) 6.5 x10^3uL (1.8-7.7) Lymphocytes # (Auto) 1.6 x10^3/uL (1.0-4.8) Monocytes # (Auto) 0.9 x10^3/uL (0.0-1.1) Eosinophils # (Auto) 0.0 x10^3/uL (0.0-0.7) Basophils # (Auto) 0.0 x10^3/uL (0.0-0.2) Sodium Level 137 mmol/L (136-145) Potassium Level 4.2 mmol/L (3.5-5.1) Chloride Level 102 mmol/L (98-107) Carbon Dioxide Level 27 mmol/L (21-32) Anion Gap 8 (6-14) Blood Urea Nitrogen 56 mg/dL (8-26) Creatinine 2.8 mg/dL (0.7-1.3) Estimated GFR (Cockcroft-Gault) 26.9 Glucose Level 80 mg/dL (70-99) Calcium Level 8.5 mg/dL (8.5-10.1) Phosphorus Level 5.3 mg/dL (2.6-4.7) Magnesium Level 2.1 mg/dL (1.8-2.4) Creatine Kinase 45 U/L (39-308) Albumin 2.4 g/dL (3.4-5.0) Test 09/25/16 07:35 09/25/16 11:41 09/25/16 16:38 09/25/16 20:53 Glucose (Fingerstick) 73 mg/dL (70-99) 225 mg/dL (70-99) 172 mg/dL (70-99) 160 mg/dL (70-99) Test 09/26/16 03:40 09/26/16 07:05 09/26/16 11:40 Sodium Level 137 mmol/L (136-145) Potassium Level 4.5 mmol/L (3.5-5.1) Chloride Level 101 mmol/L (98-107) Carbon Dioxide Level 29 mmol/L (21-32) Anion Gap 7 (6-14) Blood Urea Nitrogen 60 mg/dL (8-26) Creatinine 2.9 mg/dL (0.7-1.3) Estimated GFR (Cockcroft-Gault) 25.9 Glucose Level 134 mg/dL (70-99) Calcium Level 8.4 mg/dL (8.5-10.1) Phosphorus Level 5.3 mg/dL (2.6-4.7) Magnesium Level 2.1 mg/dL (1.8-2.4) Creatine Kinase 43 U/L (39-308) Albumin 2.4 g/dL (3.4-5.0) Glucose (Fingerstick) 104 mg/dL (70-99) 191 mg/dL (70-99) Laboratory Tests Test 09/25/16 16:38 09/25/16 20:53 09/26/16 03:40 09/26/16 07:05 Glucose (Fingerstick) 172 mg/dL (70-99) 160 mg/dL (70-99) 104 mg/dL (70-99) Sodium Level 137 mmol/L (136-145) Potassium Level 4.5 mmol/L (3.5-5.1) Chloride Level 101 mmol/L (98-107) Carbon Dioxide Level 29 mmol/L (21-32) Anion Gap 7 (6-14) Blood Urea Nitrogen 60 mg/dL (8-26) Creatinine 2.9 mg/dL (0.7-1.3) Estimated GFR (Cockcroft-Gault) 25.9 Glucose Level 134 mg/dL (70-99) Calcium Level 8.4 mg/dL (8.5-10.1) Phosphorus Level 5.3 mg/dL (2.6-4.7) Magnesium Level 2.1 mg/dL (1.8-2.4) Creatine Kinase 43 U/L (39-308) Albumin 2.4 g/dL (3.4-5.0) Test 09/26/16 11:40 Glucose (Fingerstick) 191 mg/dL (70-99) I have reviewed the following angiogram and vein mapping Problem List Problems Medical Problems: (1) Hypoglycemia Status: Acute Assessment/Plan P: right popliteal to dorsalis pedis bypass with saphenous vein (best conduit but still marginal diameter based on ultrasound imaging) with debridement as indicated right heel and toes. Scheduled tomorrow for 1pm Problems: PAT KAUR II, MD Sep 26, 2016 14:05
[2016-09-26 14:52] VITALS: BP 152/83
--- NOTE | 2016-09-26 15:18 | PDOC ---
Provider Note Provider Note Provider Note RENAL F/U : KIRIT DOS : 09/25/16 S: No new issues. O : Doing OK VSS Afebrile. Neck ; Supple Lungs : Non labored. CVS : RRR Abd: Benign appearing. No new edema. A/P: ARF/ATN. DEHDRATION. HTN w CKD PVD. Supportive care. CPM. Denis Beth M.D. DENIS BETH MD Sep 26, 2016 15:18
[2016-09-26 19:00] VITALS: BP_SYST 126; BP_SYST 139; BP_DIAS 50; BP_DIAS 66
[2016-09-26] MEDS: ATORVASTATIN CALCIUM 40 MG TABLET. PO SCH (20:37)
[2016-09-26] MEDS: INSULIN DETEMIR 300 UNITS/3 ML INSULN.PEN. SQ SCH (20:39)
[2016-09-26 23:00] VITALS: BP 150/85
[2016-09-27] VITALS (24 sets, daily range): BP systolic 152–190; BP diastolic 82–101
[2016-09-27] MEDS ORDERED: IV RINGERS,LACTATED 1000ML 1,000 ML IV SCH (00:01)
[2016-09-27 04:39] LABS: HEMATOCRIT 21.2 % (39.0-53.0); RED BLOOD COUNT 2.4 x10^6/uL (4.30-5.70); RED CELL DISTRIBUTION WIDTH 16.9 % (11.5-14.5); WHITE BLOOD COUNT 9.2 x10^3/uL (4.0-11.0)
[2016-09-27 04:59] LABS: ALBUMIN 2.3 g/dL (3.4-5.0); ALBUMIN/GLOBULIN RATIO 0.6 (1.0-1.7); CALCIUM 8.3 mg/dL (8.5-10.1); CREATININE 2.5 mg/dL (0.7-1.3); GFR 30.7; PHOSPHORUS 4.3 mg/dL (2.6-4.7); POTASSIUM 4.3 mmol/L (3.5-5.1); TOTAL BILIRUBIN 0.3 mg/dL (0.2-1.0)
[2016-09-27] MEDS ORDERED: HEPARIN SODIUM 5,000 UNIT in IV NORMAL SALINE 500ML BAG 500 ML IRR ONE (07:15)
[2016-09-27] MEDS: BUDESONIDE 0.5 MG/2 ML NEBU. NEB SCH ×2 (07:36→19:31)
[2016-09-27] MEDS: IPRATRPIUM/ALBUTEROL 0.5/2.5MG 3 ML NEBU. NEB SCH ×4 (07:36→19:32)
[2016-09-27] MEDS: INSULIN ASPART 300 UNITS/3 ML INSULN.PEN SQ SCH ×3 (08:00→17:00)
[2016-09-27] MEDS: CLOPIDOGREL BISULFATE 75 MG TABLET PO SCH (08:00)
[2016-09-27 10:13] LABS: GLOMERULAR BASEMENT ABDY 3 units (0-20)
--- NOTE | 2016-09-27 10:28 | PDOC ---
PULMONARY PROGRESS NOTES Subjective no SOA sats stable Vitals Vital Signs Date Time Temp Pulse Resp B/P (MAP) Pulse Ox O2 Delivery O2 Flow Rate FiO2 09/27/16 07:36 92 Room Air 09/27/16 07:00 98.1 82 20 167/93 (117) 98.1 09/26/16 21:45 3.0 General: Alert, No acute distress HEENT: Other Lungs: Other (bl decreased bs) Cardiovascular: S1, S2 Abdomen: Soft, Non-tender, Other Extremities: Other Labs Laboratory Tests Test 09/25/16 11:41 09/25/16 16:38 09/25/16 20:53 09/26/16 03:40 Glucose (Fingerstick) 225 mg/dL (70-99) 172 mg/dL (70-99) 160 mg/dL (70-99) Sodium Level 137 mmol/L (136-145) Potassium Level 4.5 mmol/L (3.5-5.1) Chloride Level 101 mmol/L (98-107) Carbon Dioxide Level 29 mmol/L (21-32) Anion Gap 7 (6-14) Blood Urea Nitrogen 60 mg/dL (8-26) Creatinine 2.9 mg/dL (0.7-1.3) Estimated GFR (Cockcroft-Gault) 25.9 Glucose Level 134 mg/dL (70-99) Calcium Level 8.4 mg/dL (8.5-10.1) Phosphorus Level 5.3 mg/dL (2.6-4.7) Magnesium Level 2.1 mg/dL (1.8-2.4) Creatine Kinase 43 U/L (39-308) Albumin 2.4 g/dL (3.4-5.0) Test 09/26/16 07:05 09/26/16 11:40 09/26/16 15:25 09/26/16 16:42 Glucose (Fingerstick) 104 mg/dL (70-99) 191 mg/dL (70-99) 122 mg/dL (70-99) Hemoglobin 7.3 g/dL (13.0-17.5) Test 09/26/16 20:29 09/27/16 03:40 09/27/16 07:36 Glucose (Fingerstick) 236 mg/dL (70-99) 106 mg/dL (70-99) White Blood Count 9.2 x10^3/uL (4.0-11.0) Red Blood Count 2.40 x10^6/uL (4.30-5.70) Hemoglobin 7.0 g/dL (13.0-17.5) Hematocrit 21.2 % (39.0-53.0) Mean Corpuscular Volume 88 fL (79-100) Mean Corpuscular Hemoglobin 29 pg (25-35) Mean Corpuscular Hemoglobin Concent 33 g/dL (31-37) Red Cell Distribution Width 16.9 % (11.5-14.5) Platelet Count 326 x10^3/uL (140-400) Sodium Level 136 mmol/L (136-145) Potassium Level 4.3 mmol/L (3.5-5.1) Chloride Level 102 mmol/L (98-107) Carbon Dioxide Level 28 mmol/L (21-32) Anion Gap 6 (6-14) Blood Urea Nitrogen 53 mg/dL (8-26) Creatinine 2.5 mg/dL (0.7-1.3) Estimated GFR (Cockcroft-Gault) 30.7 BUN/Creatinine Ratio 21 (6-20) Glucose Level 106 mg/dL (70-99) Calcium Level 8.3 mg/dL (8.5-10.1) Phosphorus Level 4.3 mg/dL (2.6-4.7) Magnesium Level 2.0 mg/dL (1.8-2.4) Total Bilirubin 0.3 mg/dL (0.2-1.0) Aspartate Amino Transf (AST/SGOT) 19 U/L (15-37) Alanine Aminotransferase (ALT/SGPT) 22 U/L (16-63) Alkaline Phosphatase 95 U/L (46-116) Creatine Kinase 43 U/L (39-308) Total Protein 6.0 g/dL (6.4-8.2) Albumin 2.3 g/dL (3.4-5.0) Albumin/Globulin Ratio 0.6 (1.0-1.7) Laboratory Tests Test 09/26/16 11:40 09/26/16 15:25 09/26/16 16:42 09/26/16 20:29 Glucose (Fingerstick) 191 mg/dL (70-99) 122 mg/dL (70-99) 236 mg/dL (70-99) Hemoglobin 7.3 g/dL (13.0-17.5) Test 09/27/16 03:40 09/27/16 07:36 White Blood Count 9.2 x10^3/uL (4.0-11.0) Red Blood Count 2.40 x10^6/uL (4.30-5.70) Hemoglobin 7.0 g/dL (13.0-17.5) Hematocrit 21.2 % (39.0-53.0) Mean Corpuscular Volume 88 fL (79-100) Mean Corpuscular Hemoglobin 29 pg (25-35) Mean Corpuscular Hemoglobin Concent 33 g/dL (31-37) Red Cell Distribution Width 16.9 % (11.5-14.5) Platelet Count 326 x10^3/uL (140-400) Sodium Level 136 mmol/L (136-145) Potassium Level 4.3 mmol/L (3.5-5.1) Chloride Level 102 mmol/L (98-107) Carbon Dioxide Level 28 mmol/L (21-32) Anion Gap 6 (6-14) Blood Urea Nitrogen 53 mg/dL (8-26) Creatinine 2.5 mg/dL (0.7-1.3) Estimated GFR (Cockcroft-Gault) 30.7 BUN/Creatinine Ratio 21 (6-20) Glucose Level 106 mg/dL (70-99) Calcium Level 8.3 mg/dL (8.5-10.1) Phosphorus Level 4.3 mg/dL (2.6-4.7) Magnesium Level 2.0 mg/dL (1.8-2.4) Total Bilirubin 0.3 mg/dL (0.2-1.0) Aspartate Amino Transf (AST/SGOT) 19 U/L (15-37) Alanine Aminotransferase (ALT/SGPT) 22 U/L (16-63) Alkaline Phosphatase 95 U/L (46-116) Creatine Kinase 43 U/L (39-308) Total Protein 6.0 g/dL (6.4-8.2) Albumin 2.3 g/dL (3.4-5.0) Albumin/Globulin Ratio 0.6 (1.0-1.7) Glucose (Fingerstick) 106 mg/dL (70-99) Medications Active Scripts Medications Dose Route/Sig Max Daily Dose Days Date Category Levofloxacin 750 Mg Tablet 1 Tab PO DAILY 09/21/16 Rx Percocet 5-325 Mg Tablet (Oxycodone/Acetaminophen) 1 Each Tablet 1 Tab PO PRN Q6HRS PRN 07/30/16 Reported Advair 100-50 Diskus (Fluticasone/Salmeterol) 1 Each Disk.w.dev 1 Puff IH BID 06/21/16 Reported Spiriva Respimat (Tiotropium [place]) 4 Gm Mist.inhal 2.5 Gm IH DAILY 06/21/16 Reported Symbicort 160-4.5 Mcg Inhaler (Budesonide/Formoterol Fumarate) 10.2 Gm Hfa.aer.ad 2 Puff IH BID 06/21/16 Reported Atorvastatin Calcium 20 Mg Tablet 20 Mg PO HS 06/21/16 Reported Lisinopril-Hctz 10-12.5 Mg Tab (Lisinopril/Hydrochlorothiazide) 1 Each Tablet 1 Tab PO DAILY 06/21/16 Reported Isosorbide Mononitrate Er (Isosorbide Mononitrate) 120 Mg Tab.er.24h 120 Mg PO DAILY 06/21/16 Reported Levemir Flextouch (Insulin Detemir) 100 Unit/1 Ml Insuln.pen 20 Units SQ QHS 30 11/24/15 Rx Novolog Flexpen (Insulin Aspart) 100 Unit/1 Ml Insuln.pen 10 Units SQ TIDAC 30 11/24/15 Rx Novolin N (Nph, Human Insulin Isophane) 100 Unit/1 Ml Vial 0 SQ 11/18/15 Reported Promethazine-Codeine Syrup (Promethazine Hcl/Codeine) 118 Ml Syrup 5 Ml PO Q4-6HRS 11/18/15 Reported Diltiazem 24HR Cd (Diltiazem Hcl) 240 Mg Cap.er.24h 240 Mg PO DAILY 11/18/15 Reported NITROGLYCERIN SubLingual (Nitroglycerin) 0.4 Mg Tab.subl 0.4 Mg SL PRN Q5MIN PRN 11/18/15 Reported Atorvastatin Calcium 40 Mg Tablet 40 Mg PO HS 11/18/15 Reported Impression . 1. Acute encephalopathy secondary to severe hypoglycemia, now completely resolved. The mental status has improved. 2. History of chronic obstructive airway disease, clinically compensated. 3. History of extensive pulmonary embolism, resulting in shock in June. Status post treatment with anticoagulation Xarelto with last CT angiogram done on 2016 has shown resolution of pulmonary embolism.He is s/p IVC filter. 3 Months of AC was recommended. off now 4. History of IVC filter placement in June. 5. 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 6. Abnormal CXR with mild CHF 7. renal failure, 8. Anemia 9. PVD Plan . 1. Avoid further lasix 2. Continue present nasal cannula. 3. Monitor blood sugars closely. 4. Management of diabetes per PCP. 5. Monitor hemoglobin closely. 6. Discussed with RN. 7. Pt has resolution of PE by last CT. s/p treatment with Xarelto.Not the best candidate for detention AC. no further AC 8. HD per renal if needed 9. right popliteal to dorsalis pedis bypass with saphenous vein with debridement right heel and toes. Scheduled today IVANA COX MD Sep 27, 2016 10:28
--- NOTE | 2016-09-27 10:45 | PDOC ---
PROGRESS NOTES Chief Complaint Chief Complaint 1, Hypoglycemia with acute encephalopathy POA, resolved 2. 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 Mod PCM 4. High fall risk 5. CLaudication R>L 6. Gen weakness Old dx: 2. HX bilateral PE with cardiac arrest ([facility] 2016) sec to PE 3. CLean cardiac cath 4.Hx Non-occlusive thrombus, R leg (07/15) 5. COPD on home o2? exacerbation - wheezy 6. DM2; insulin requiring with HYPOGLYCEMIA 7. Hx Oliguric Hyperkalemic renal failure - stable 8 Dyslipidemia on statin 9. HX significant angioedema likely sec to ADAN inhib needing intubation (06/2016) History of Present Illness History of Present Illness Pt seen and examined. 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 He is scheduled for Fem Pop bypass this am VSS Got a transfusion thia am Vitals Vitals Vital Signs Date Time Temp Pulse Resp B/P (MAP) Pulse Ox O2 Delivery O2 Flow Rate FiO2 09/27/16 07:36 92 Room Air 09/27/16 07:00 98.1 82 20 167/93 (117) 98.1 09/26/16 21:45 3.0 Physical Exam General: Other (Resting with NAD) Heart: Regular rate (Sinus tach), Normal S1, Normal S2, Other (3/6 systolic murmur to LLS border) Lungs: Clear, Other (bl decreased bs) Abdomen: Soft, No tenderness Extremities: No clubbing, No cyanosis, Other (dry gangrene right heel and spotty digital gangrene) Skin: No rashes Labs LABS Laboratory Tests Test 09/26/16 11:40 09/26/16 15:25 09/26/16 16:42 09/26/16 20:29 Glucose (Fingerstick) 191 mg/dL (70-99) 122 mg/dL (70-99) 236 mg/dL (70-99) Hemoglobin 7.3 g/dL (13.0-17.5) Test 09/27/16 03:40 09/27/16 07:36 White Blood Count 9.2 x10^3/uL (4.0-11.0) Red Blood Count 2.40 x10^6/uL (4.30-5.70) Hemoglobin 7.0 g/dL (13.0-17.5) Hematocrit 21.2 % (39.0-53.0) Mean Corpuscular Volume 88 fL (79-100) Mean Corpuscular Hemoglobin 29 pg (25-35) Mean Corpuscular Hemoglobin Concent 33 g/dL (31-37) Red Cell Distribution Width 16.9 % (11.5-14.5) Platelet Count 326 x10^3/uL (140-400) Sodium Level 136 mmol/L (136-145) Potassium Level 4.3 mmol/L (3.5-5.1) Chloride Level 102 mmol/L (98-107) Carbon Dioxide Level 28 mmol/L (21-32) Anion Gap 6 (6-14) Blood Urea Nitrogen 53 mg/dL (8-26) Creatinine 2.5 mg/dL (0.7-1.3) Estimated GFR (Cockcroft-Gault) 30.7 BUN/Creatinine Ratio 21 (6-20) Glucose Level 106 mg/dL (70-99) Calcium Level 8.3 mg/dL (8.5-10.1) Phosphorus Level 4.3 mg/dL (2.6-4.7) Magnesium Level 2.0 mg/dL (1.8-2.4) Total Bilirubin 0.3 mg/dL (0.2-1.0) Aspartate Amino Transf (AST/SGOT) 19 U/L (15-37) Alanine Aminotransferase (ALT/SGPT) 22 U/L (16-63) Alkaline Phosphatase 95 U/L (46-116) Creatine Kinase 43 U/L (39-308) Total Protein 6.0 g/dL (6.4-8.2) Albumin 2.3 g/dL (3.4-5.0) Albumin/Globulin Ratio 0.6 (1.0-1.7) Glucose (Fingerstick) 106 mg/dL (70-99) Review of Systems Review of Systems no new complaints Assessment and Plan Assessmemt and Plan Problems Medical Problems: (1) Hypoglycemia Status: Acute 1, Hypoglycemia with acute encephalopathy POA, resolved 2. 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 Mod PCM 4. High fall risk 5. CLaudication R>L 6. Gen weakness Old dx: 2. HX bilateral PE with cardiac arrest ([facility] 2017) sec to PE 3. CLean cardiac cath 4.Hx Non-occlusive thrombus, R leg (07/15) 5. COPD on home o2? exacerbation - wheezy 6. DM2; insulin requiring with HYPOGLYCEMIA 7. Hx Oliguric Hyperkalemic renal failure - stable 8 Dyslipidemia on statin 9. 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 Labs Laboratory Tests Test 09/25/16 11:41 09/25/16 16:38 09/25/16 20:53 09/26/16 03:40 Glucose (Fingerstick) 225 mg/dL (70-99) 172 mg/dL (70-99) 160 mg/dL (70-99) Sodium Level 137 mmol/L (136-145) Potassium Level 4.5 mmol/L (3.5-5.1) Chloride Level 101 mmol/L (98-107) Carbon Dioxide Level 29 mmol/L (21-32) Anion Gap 7 (6-14) Blood Urea Nitrogen 60 mg/dL (8-26) Creatinine 2.9 mg/dL (0.7-1.3) Estimated GFR (Cockcroft-Gault) 25.9 Glucose Level 134 mg/dL (70-99) Calcium Level 8.4 mg/dL (8.5-10.1) Phosphorus Level 5.3 mg/dL (2.6-4.7) Magnesium Level 2.1 mg/dL (1.8-2.4) Creatine Kinase 43 U/L (39-308) Albumin 2.4 g/dL (3.4-5.0) Test 09/26/16 07:05 09/26/16 11:40 09/26/16 15:25 09/26/16 16:42 Glucose (Fingerstick) 104 mg/dL (70-99) 191 mg/dL (70-99) 122 mg/dL (70-99) Hemoglobin 7.3 g/dL (13.0-17.5) Test 09/26/16 20:29 09/27/16 03:40 09/27/16 07:36 Glucose (Fingerstick) 236 mg/dL (70-99) 106 mg/dL (70-99) White Blood Count 9.2 x10^3/uL (4.0-11.0) Red Blood Count 2.40 x10^6/uL (4.30-5.70) Hemoglobin 7.0 g/dL (13.0-17.5) Hematocrit 21.2 % (39.0-53.0) Mean Corpuscular Volume 88 fL (79-100) Mean Corpuscular Hemoglobin 29 pg (25-35) Mean Corpuscular Hemoglobin Concent 33 g/dL (31-37) Red Cell Distribution Width 16.9 % (11.5-14.5) Platelet Count 326 x10^3/uL (140-400) Sodium Level 136 mmol/L (136-145) Potassium Level 4.3 mmol/L (3.5-5.1) Chloride Level 102 mmol/L (98-107) Carbon Dioxide Level 28 mmol/L (21-32) Anion Gap 6 (6-14) Blood Urea Nitrogen 53 mg/dL (8-26) Creatinine 2.5 mg/dL (0.7-1.3) Estimated GFR (Cockcroft-Gault) 30.7 BUN/Creatinine Ratio 21 (6-20) Glucose Level 106 mg/dL (70-99) Calcium Level 8.3 mg/dL (8.5-10.1) Phosphorus Level 4.3 mg/dL (2.6-4.7) Magnesium Level 2.0 mg/dL (1.8-2.4) Total Bilirubin 0.3 mg/dL (0.2-1.0) Aspartate Amino Transf (AST/SGOT) 19 U/L (15-37) Alanine Aminotransferase (ALT/SGPT) 22 U/L (16-63) Alkaline Phosphatase 95 U/L (46-116) Creatine Kinase 43 U/L (39-308) Total Protein 6.0 g/dL (6.4-8.2) Albumin 2.3 g/dL (3.4-5.0) Albumin/Globulin Ratio 0.6 (1.0-1.7) Laboratory Tests Test 09/26/16 11:40 09/26/16 15:25 09/26/16 16:42 09/26/16 20:29 Glucose (Fingerstick) 191 mg/dL (70-99) 122 mg/dL (70-99) 236 mg/dL (70-99) Hemoglobin 7.3 g/dL (13.0-17.5) Test 09/27/16 03:40 09/27/16 07:36 White Blood Count 9.2 x10^3/uL (4.0-11.0) Red Blood Count 2.40 x10^6/uL (4.30-5.70) Hemoglobin 7.0 g/dL (13.0-17.5) Hematocrit 21.2 % (39.0-53.0) Mean Corpuscular Volume 88 fL (79-100) Mean Corpuscular Hemoglobin 29 pg (25-35) Mean Corpuscular Hemoglobin Concent 33 g/dL (31-37) Red Cell Distribution Width 16.9 % (11.5-14.5) Platelet Count 326 x10^3/uL (140-400) Sodium Level 136 mmol/L (136-145) Potassium Level 4.3 mmol/L (3.5-5.1) Chloride Level 102 mmol/L (98-107) Carbon Dioxide Level 28 mmol/L (21-32) Anion Gap 6 (6-14) Blood Urea Nitrogen 53 mg/dL (8-26) Creatinine 2.5 mg/dL (0.7-1.3) Estimated GFR (Cockcroft-Gault) 30.7 BUN/Creatinine Ratio 21 (6-20) Glucose Level 106 mg/dL (70-99) Calcium Level 8.3 mg/dL (8.5-10.1) Phosphorus Level 4.3 mg/dL (2.6-4.7) Magnesium Level 2.0 mg/dL (1.8-2.4) Total Bilirubin 0.3 mg/dL (0.2-1.0) Aspartate Amino Transf (AST/SGOT) 19 U/L (15-37) Alanine Aminotransferase (ALT/SGPT) 22 U/L (16-63) Alkaline Phosphatase 95 U/L (46-116) Creatine Kinase 43 U/L (39-308) Total Protein 6.0 g/dL (6.4-8.2) Albumin 2.3 g/dL (3.4-5.0) Albumin/Globulin Ratio 0.6 (1.0-1.7) Glucose (Fingerstick) 106 mg/dL (70-99) Microbiology 09/22/16 Blood Culture - Preliminary, Resulted NO GROWTH AFTER 4 DAYS Medications Current Medications Dextrose (Dextrose 50%-Water Syringe) 25 gm STK-MED ONCE IV ; Start 09/22/16 at 10:39; Stop 09/22/16 at 10:40; Status DC Dextrose 500 ml @ 30 mls/hr 1X ONCE IV Last administered on 09/22/16 11:52; Start 09/22/16 at 11:45; Stop 09/22/16 at 17:38; Status DC Dextrose (Dextrose 50%-Water Syringe) 25 gm STK-MED ONCE IV ; Start 09/22/16 at 11:45; Stop 09/22/16 at 11:46; Status DC Dextrose (Dextrose 50%-Water Syringe) 25 gm 1X ONCE IV Last administered on 10:45; Start 09/22/16 at 12:00; Stop 09/22/16 at 12:01; Status DC Dextrose (Dextrose 50%-Water Syringe) 25 gm 1X ONCE IV Last administered on 11:40; Start 09/22/16 at 12:00; Stop 09/22/16 at 12:01; Status DC Nitroglycerin (Nitrostat) 0.4 mg PRN Q5MIN PRN SL CHEST PAIN Last administered on 09/24/16 03:18; Start 09/22/16 at 12:00 Ondansetron HCl (Zofran) 4 mg PRN Q8HRS PRN IV NAUSEA/VOMITING; Start 09/22/16 at 12:30; Stop 09/23/16 at 12:29; Status DC Levofloxacin/ Dextrose (Levaquin Per Pharmacy) 1 each PRN DAILY PRN MC SEE COMMENTS; Start 09/22/16 at 12:45; Stop 09/25/16 at 15:18; Status DC Levofloxacin/ Dextrose 150 ml @ 100 mls/hr Q48H IV Last administered on 13:32; Start 09/22/16 at 13:00 Sodium Chloride 500 ml @ 1,000 mls/hr 1X ONCE IV Last administered on 13:10; Start 09/22/16 at 13:15; Stop 09/22/16 at 13:44; Status DC Dextrose (Dextrose 50%-Water Syringe) 25 gm 1X ONCE IV Last administered on 13:11; Start 09/22/16 at 13:15; Stop 09/22/16 at 13:16; Status DC Insulin Aspart (NovoLOG) 0-5 UNITS TIDWMEALS SQ Last administered on 09/22/16 18:17; Start 09/22/16 at 17:00; Stop 09/23/16 at 09:23; Status DC Dextrose (Dextrose 50%-Water Syringe) 12.5 gm PRN Q15MIN PRN IV SEE COMMENTS Last administered on 09/22/16 13:58; Start 09/22/16 at 14:00 Labetalol HCl (Normodyne) 20 mg PRN Q2HR PRN IVP HYPERTENSION, SEE COMMENTS Last administered on 09/22/16 15:19; Start 09/22/16 at 14:15 Amlodipine Besylate (Norvasc) 10 mg DAILY PO ; Start 09/23/16 at 09:00; Status UNV Atorvastatin Calcium (Lipitor) 40 mg HS PO Last administered on 09/26/16 20:37 ; Start 09/22/16 at 21:00 Diltiazem HCl (Cardizem 24hr Cd) 240 mg DAILY PO Last administered on 09/26/16 08:43; Start 09/22/16 at 15:00 Isosorbide Mononitrate (Imdur) 120 mg DAILY PO Last administered on 09/26/16 08 :43; Start 09/22/16 at 15:00 Albuterol/ Ipratropium (Duoneb) 3 ml STK-MED ONCE .ROUTE ; Start 09/22/16 at 15: 06; Stop 09/22/16 at 15:07; Status DC Albuterol/ Ipratropium (Duoneb) 3 ml RTQID NEB Last administered on 09/27/16 07 :36; Start 09/22/16 at 16:00 Budesonide (Pulmicort) 0.5 mg RTBID NEB Last administered on 09/27/16 07:36; Start 09/22/16 at 20:00 Magnesium Sulfate/ Dextrose 50 ml @ 25 mls/hr PRN DAILY PRN IV for Mag < 1.7 on am labs; Start 09/22/16 at 15:45 Sodium Chloride 1,000 ml @ 100 mls/hr Q10H IV Last administered on 09/23/16 01 :35; Start 09/22/16 at 15:45; Stop 09/23/16 at 07:45; Status DC Dextrose 1,000 ml @ 50 mls/hr Q20H IV Last administered on 09/22/16 17:39; Start 09/22/16 at 17:45; Stop 09/23/16 at 07:45; Status DC Insulin Aspart (NovoLOG) 0-9 UNITS TIDWMEALS SQ Last administered on 09/26/16 12:31; Start 09/23/16 at 12:00 Dextrose (Dextrose 50%-Water Syringe) 12.5 gm PRN Q15MIN PRN IV SEE COMMENTS; Start 09/23/16 at 09:30; Stop 09/23/16 at 12:56; Status DC Albuterol/ Ipratropium (Duoneb) 3 ml RTQID NEB ; Start 09/23/16 at 12:00; Stop at 12:56; Status DC Prednisone (Prednisone) 60 mg 1X ONCE PO Last administered on 09/23/16 10:00; Start 09/23/16 at 09:30; Stop 09/23/16 at 09:31; Status DC Benzonatate (Tessalon Perle) 100 mg [id number] PO Last administered on 09/26/16 20: 38; Start 09/23/16 at 09:30 Furosemide (Lasix) 20 mg 1X ONCE IVP Last administered on 09/23/16 17:30; Start 09/23/16 at 17:30; Stop 09/23/16 at 17:31; Status DC Furosemide (Lasix) 80 mg 1X ONCE IVP Last administered on 09/24/16 15:56; Start 09/24/16 at 11:00; Stop 09/24/16 at 11:03; Status DC Acetylcysteine (Mucomyst 20% Oral Solution) 1,200 mg BID PO Last administered on 09/26/16 08:51; Start 09/24/16 at 11:30; Stop 09/26/16 at 11:29; Status DC Darbepoetin Arsh (Aranesp) 60 mcg WEEKLYHS SQ Last administered on 09/24/16 20: 23; Start 09/24/16 at 21:00 Tramadol HCl (Ultram) 50 mg PRN Q6HRS PRN PO PAIN Last administered on 20:38; Start 09/24/16 at 11:30 Iohexol (Omnipaque 300 Mg/ml) 100 ml STK-MED ONCE .ROUTE ; Start 09/24/16 at 12: 12; Stop 09/24/16 at 12:13; Status DC Lidocaine/Sodium Bicarbonate (Buffered Lidocaine 1%) 20 ml STK-MED ONCE IJ ; Start 09/24/16 at 12:12; Stop 09/24/16 at 12:13; Status DC Midazolam HCl (Versed) 5 mg STK-MED ONCE .ROUTE ; Start 09/24/16 at 12:12; Stop 09/24/16 at 12:13; Status DC Fentanyl Citrate (Fentanyl 5ml Vial) 250 mcg STK-MED ONCE .ROUTE ; Start at 12:12; Stop 09/24/16 at 12:13; Status DC Heparin Sodium/ Sodium Chloride 2,000 ml @ As Directed STK-MED ONCE .ROUTE ; Start 09/24/16 at 12:13; Stop 09/24/16 at 12:14; Status DC Iodixanol (Visipaque 320) 100 ml STK-MED ONCE .ROUTE ; Start 09/24/16 at 12:13; Stop 09/24/16 at 12:14; Status DC Heparin Sodium (Porcine) (Heparin Sodium) 10,000 unit STK-MED ONCE .ROUTE ; Start 09/24/16 at 12:15; Stop 09/24/16 at 12:16; Status DC Insulin Detemir (Levemir) 10 units QHS SQ Last administered on 09/26/16 20:39; Start 09/24/16 at 21:00 Heparin Sodium/ Sodium Chloride 1,000 unit 1X ONCE IART Last administered on 14:52; Start 09/24/16 at 14:00; Stop 09/24/16 at 14:01; Status DC Lidocaine/Sodium Bicarbonate (Buffered Lidocaine 1%) 20 ml 1X ONCE IJ Last administered on 09/24/16 14:00; Start 09/24/16 at 14:00; Stop 09/24/16 at 14:01; Status DC Midazolam HCl (Versed) 5 mg 1X ONCE IV ; Start 09/24/16 at 14:00; Stop 09/24/16 at 14:01; Status DC Fentanyl Citrate (Fentanyl 5ml Vial) 250 mcg 1X ONCE IV ; Start 09/24/16 at 14: 00; Stop 09/24/16 at 14:01; Status DC Iohexol (Omnipaque 300 Mg/ml) 100 ml 1X ONCE IART Last administered on 14:51; Start 09/24/16 at 14:00; Stop 09/24/16 at 14:01; Status DC Iodixanol (Visipaque 320) 100 ml 1X ONCE IART Last administered on 09/24/16 14 :00; Start 09/24/16 at 14:00; Stop 09/24/16 at 14:01; Status DC Heparin Sodium (Porcine) (Heparin Sodium) 4,000 unit 1X ONCE IV Last administered on 09/24/16 14:00; Start 09/24/16 at 14:00; Stop 09/24/16 at 14:01; Status DC Info (Do NOT chart on this entry -- for MONITORING) 1 each PRN DAILY PRN MC SEE COMMENTS; Start 09/24/16 at 14:15; Stop 09/26/16 at 14:14; Status DC Clopidogrel Bisulfate (Plavix) 300 mg 1X ONCE PO Last administered on 16:01; Start 09/24/16 at 15:30; Stop 09/24/16 at 15:31; Status DC Clopidogrel Bisulfate (Plavix) 75 mg DAILYWBKFT PO Last administered on 08:43; Start 09/25/16 at 08:00; Stop 10/25/16 at 08:00 Ringer's Solution 1,000 ml @ 100 mls/hr Q10H IV ; Start 09/27/16 at 00:01; Stop 09/27/16 at 00:01; Status DC Cefazolin Sodium/ Dextrose 50 ml @ 100 mls/hr 1X PREOP PRN IV SEE COMMENTS; Start 09/27/16 at 06:00; Stop 09/27/16 at 18:00 Heparin Sodium (Porcine) 5000 unit/Sodium Chloride 505 ml @ 505 mls/hr 1X PERIOP ONCE IRR ; Start 09/27/16 at 07:15; Stop 09/27/16 at 08:14; Status DC Cefazolin Sodium 1 gm/Sodium Chloride 500 ml @ 500 mls/hr 1X PERIOP ONCE IRR ; Start 09/27/16 at 07:15; Stop 09/27/16 at 08:14; Status DC Active Scripts Active Levofloxacin 750 Mg Tablet 1 Tab PO DAILY Levemir Flextouch (Insulin Detemir) 100 Unit/1 Ml Insuln.pen 20 Units SQ QHS 30 Days Novolog Flexpen (Insulin Aspart) 100 Unit/1 Ml Insuln.pen 10 Units SQ TIDAC 30 Days Reported Percocet 5-325 Mg Tablet (Oxycodone/Acetaminophen) 1 Each Tablet 1 Tab PO PRN Q6HRS PRN Advair 100-50 Diskus (Fluticasone/Salmeterol) 1 Each Disk.w.dev 1 Puff IH BID Spiriva Respimat (Tiotropium [place]) 4 Gm Mist.inhal 2.5 Gm IH DAILY Symbicort 160-4.5 Mcg Inhaler (Budesonide/Formoterol Fumarate) 10.2 Gm Hfa.aer.ad 2 Puff IH BID Atorvastatin Calcium 20 Mg Tablet 20 Mg PO HS Lisinopril-Hctz 10-12.5 Mg Tab (Lisinopril/Hydrochlorothiazide) 1 Each Tablet 1 Tab PO DAILY Isosorbide Mononitrate Er (Isosorbide Mononitrate) 120 Mg Tab.er.24h 120 Mg PO DAILY Novolin N (Nph, Human Insulin Isophane) 100 Unit/1 Ml Vial 0 SQ Promethazine-Codeine Syrup (Promethazine Hcl/Codeine) 118 Ml Syrup 5 Ml PO Q4- 6HRS Diltiazem 24HR Cd (Diltiazem Hcl) 240 Mg Cap.er.24h 240 Mg PO DAILY NITROGLYCERIN SubLingual (Nitroglycerin) 0.4 Mg Tab.subl 0.4 Mg SL PRN Q5MIN PRN Atorvastatin Calcium 40 Mg Tablet 40 Mg PO HS Vitals/I & O Vital Sign - Last 24 Hours 09/26/16 09/26/16 09/26/16 09/26/16 10:53 11:15 11:27 14:52 Temp 97.7 97.9 97.7 97.9 Pulse 101 94 Resp 18 18 B/P (MAP) 160/82 (108) 152/83 (106) Pulse Ox 97 98 97 O2 Delivery Room Air Nasal Cannula Room Air Room Air O2 Flow Rate 3.0 09/26/16 09/26/16 09/26/16 09/26/16 15:41 19:00 20:00 20:26 Temp 98.8 98.8 Pulse 91 Resp 18 B/P (MAP) 139/66 (90) Pulse Ox 97 88 96 O2 Delivery Room Air Room Air Nasal Cannula Room Air O2 Flow Rate 3.0 09/26/16 09/26/16 09/26/16 09/27/16 20:38 21:45 23:00 03:00 Temp 98.8 98.1 98.8 98.1 Pulse 92 86 Resp 22 22 B/P (MAP) 150/85 (106) 154/88 (110) Pulse Ox 81 90 O2 Delivery Nasal Cannula Nasal Cannula Room Air Room Air O2 Flow Rate 3.0 09/27/16 09/27/16 09/27/16 09/27/16 05:41 05:47 05:56 06:18 Temp 97.5 97.3 97.9 97.9 97.5 97.3 97.9 97.9 Pulse 83 82 82 83 Resp 20 20 20 20 B/P (MAP) 161/91 158/90 152/88 163/100 09/27/16 09/27/16 09/27/16 06:29 07:00 07:36 Temp 97.9 98.1 97.9 98.1 Pulse 83 82 Resp 20 20 B/P (MAP) 163/100 (121) 167/93 (117) Pulse Ox 99 94 92 O2 Delivery Room Air Room Air Room Air Intake and Output 09/26/16 09/26/16 09/27/16 15:00 23:00 07:00 Intake Total 760 ml 335 ml Output Total 1050 ml 250 ml Balance -290 ml 85 ml JUHI FRANCIS III DO Sep 27, 2016 10:45
[2016-09-27] MEDS ORDERED: FUROSEMIDE 40 MG/4 ML VIAL. IVP ONE (11:00)
[2016-09-27] MEDS ORDERED: ONDANSETRON PF 4 MG/2 ML VIAL. ONE (11:42)
[2016-09-27] MEDS ORDERED: LIDOCAINE 2% PF Vial for OR 5 ML VIAL. ONE (11:42)
[2016-09-27] MEDS ORDERED: PROPOFOL 20 ML IV ONE ×2 (11:42→16:28)
[2016-09-27] MEDS ORDERED: FAMOTIDINE 20 MG/2 ML VIAL ONE (11:42)
[2016-09-27] MEDS ORDERED: DEXAMETHASONE SOD PHOS 20 MG/5 ML VIAL. ONE (11:42)
[2016-09-27] MEDS ORDERED: ROCURONIUM 50 MG/5 ML VIAL. ONE (11:45)
[2016-09-27] MEDS ORDERED: fentaNYL PF VIAL 250 MCG/5 ML VIAL ONE (11:46)
[2016-09-27] MEDS ORDERED: BUPIVACAINE 0.25% 50 ML VIAL. ONE (12:04)
[2016-09-27] MEDS ORDERED: SURGICEL FIBRILLAR 1X2 EACH. ONE (12:04)
[2016-09-27] MEDS ORDERED: THROMBIN TOPICAL 20,000 UNIT SPRAY.SYRN KIT TP ONE (12:05)
[2016-09-27] MEDS ORDERED: GELATIN SPONGE SIZE 100. ONE (12:05)
[2016-09-27] MEDS ORDERED: IOHEXOL 300 MG/ML 100ML VIAL. ONE (12:05)
[2016-09-27] MEDS ORDERED: PAPAVERINE 60 MG/2 ML VIAL FOR OR ONLY. ONE (12:05)
[2016-09-27] MEDS ORDERED: LIDOCAINE 1% 1 ML SYRINGE. ONE (12:35)
[2016-09-27] MEDS ORDERED: FUROSEMIDE 40 MG/4 ML VIAL. ONE (13:34)
[2016-09-27] MEDS: BENZONATATE 100 MG CAPSULE. PO SCH ×2 (14:00→21:27)
[2016-09-27] MEDS ORDERED: HEPARIN for IV BOLUS 10,000 UNIT/10 ML VIAL. ONE (14:29)
[2016-09-27] MEDS ORDERED: NEOSTIGMINE METHYLSULFATE 5 MG/5 ML SYRINGE. ONE (16:00)
[2016-09-27] MEDS ORDERED: GLYCOPYRROLATE 1 MG/5 ML VIAL. ONE (16:00)
[2016-09-27] MEDS ORDERED: DESFLURANE > 120 MINUTES IH ONE (16:00)
[2016-09-27] MEDS ORDERED: BACITRACIN TOPICAL OINT 14GM TUBE. TP ONE (16:14)
[2016-09-27 16:16] LABS: C ANCA <1:20 titer (Neg:<1:20)
--- NOTE | 2016-09-27 16:23 | PDOC ---
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 Clay [employer] Editor Jose C Frazier, MITUL Anesthesia Type: General Blood Loss 100cc Findings palpable graft pulse Complications stable to PACU JOSE C FRAZIER APRN Sep 27, 2016 16:22
[2016-09-27] MEDS ORDERED: HYDROmorphone 2 MG/ML VIAL IV PRN (16:45)
[2016-09-27] MEDS ORDERED: MORPHINE SULFATE 2 MG/ML DISP.SYRIN. IV PRN (16:45)
[2016-09-27] MEDS ORDERED: PROCHLORPERAZINE 10 MG/2 ML VIAL. IV PRN (16:45)
[2016-09-27] MEDS ORDERED: ONDANSETRON PF 4 MG/2 ML VIAL. IV PRN (16:45)
[2016-09-27] MEDS ORDERED: fentaNYL PF VIAL 100 MCG/2 ML VIAL IV PRN ×2 (16:45)
[2016-09-27] MEDS: IV RINGERS,LACTATED 1000ML 1,000 ML IV SCH (17:03)
[2016-09-27 17:16] LABS: BASO # 0.1 x10^3/uL (0.0-0.2); BASO % 0 % (0-3); EOS % 1 % (0-3); HEMATOCRIT 29.7 % (39.0-53.0); HEMOGLOBIN 9.6 g/dL (13.0-17.5); LYMPH # 3.1 x10^3/uL (1.0-4.8); LYMPH % 23 % (24-48); MEAN CORPUSCULAR HEMOGLOBIN 29 pg (25-35); MEAN CORPUSCULAR HGB CONC 32 g/dL (31-37); MEAN CORPUSCULAR VOLUME 90 fL (79-100); MONO % 3 % (0-9); NEUT % 73 % (31-73); PLATELET COUNT 332 x10^3/uL (140-400); RED CELL DISTRIBUTION WIDTH 16.1 % (11.5-14.5); WHITE BLOOD COUNT 13.3 x10^3/uL (4.0-11.0)
[2016-09-27 17:17] LABS: HCO3 ABG 21 mmol/L (21-28); PCO2 ABG 39 mmHg (35-46); PH ABG 7.35 (7.35-7.45); SAT O2 ABG 76 % (92-99)
[2016-09-27 17:21] LABS: FIO2 ABG 21; PO2 ABG 46 mmHg (65-108)
[2016-09-27 17:26] LABS: CALCIUM 8.5 mg/dL (8.5-10.1); CREATININE 2.5 mg/dL (0.7-1.3); GFR 30.7; MAGNESIUM 2.3 mg/dL (1.8-2.4); POTASSIUM 4.8 mmol/L (3.5-5.1)
[2016-09-27] MEDS ORDERED: HALOPERIDOL LACTATE 5 MG/ML VIAL. ONE (17:28)
[2016-09-27] MEDS: HALOPERIDOL LACTATE 5 MG/ML VIAL. IVP PRN ×2 (17:32→18:07)
--- NOTE | 2016-09-27 19:28 | OP ---
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 INDICATIONS: Severe peripheral vascular disease, chronic renal failure. The patient underwent arteriographic evaluation, which showed a severe infrapopliteal arterial occlusive disease on the right, but he did reconstitute the dorsalis pedis artery on his foot. He had minimal inflow disease otherwise. Vein mapping showed a marginally adequate vein in the thigh and small vein in the lower leg. Recommendation was for popliteal distal bypass graft. FINDINGS: The patient had a small but minimally diseased dorsalis pedis artery on top of his foot appears a 1 mm vessel distally and 1.5 mm vessel proximally. He had an excellent popliteal artery on the below knee position with a palpable pulse. Saphenous vein was actually exposing the below knee position turned out this vein was much better than what had been predicted based upon mapping studies and a curvilinear incision was then placed in the medial aspect of the thigh, exposing his vein from below knee position to the saphenofemoral junction. Individual side branches were ligated with 3-0 silk suture, clipped distally and divided. The vein was then harvested from its bed using electrocautery. The proximal aspect of the vein was clamped and ligated with 2-0 silk suture. The vein was then divided. The patient was systemically heparinized saline solution. Retrograde valve lysis was performed ____. The patient received 5000 units of intravenous heparin and proximal and distal popliteal artery were occluded with vessel loops. Longitudinal arteriotomy was made with 11 blade, extended with Harrison scissors. The vein was trimmed an end-to-side anastomosis was completed to the proximal aspect of the greater saphenous vein with a running ____ Prolene suture. There was excellent pulsatile flow through the vein conduit. A dorsalis pedis artery in order to expose the dorsum of the foot and a [place] tunneler was then utilized to connect to pass through the subcutaneous tissues and connected the two incisions. The vein was brought through the tunnel tract. Tunneler was removed. Vessel loops were secured on the dorsalis pedis artery. Longitudinal arteriotomy was made with 11 blade, extended with Harrison scissors. The vein was trimmed and spatulated end-to-side anastomosis was completed here with a running suture of 7-0 Prolene. Prior to completion of anastomosis, a flow artery was cannulated with a 1 mm dilator passed readily. Suture line was completed and blood flow was instituted into the dorsalis pedis artery. Excellent vein bypass graft by Doppler flow signal and there was no excellent Doppler flow signal in dorsalis pedis artery, which was completely obliterated with vein compression. The wound was closed with a running suture of 3-0 nylon, vein harvest incision was closed with running suture of 2-0 Vicryl placed in subcuticular tissues and pierre approximated the wound margins. Sterile dressings were applied. The patient was moved from the operating room to recovery in satisfactory stable condition. Excellent bypass graft pulse was present. This was marked. The patient tolerated the procedure well. 100 mL blood loss estimated. NICOLE WARREN MD DR: GERMANIA/taylor JOB#: [id number] / [id number]
[2016-09-27] MEDS: ATORVASTATIN CALCIUM 40 MG TABLET. PO SCH (21:26)
[2016-09-27] MEDS: traMADol 50 MG TABLET PO PRN (21:26)
[2016-09-27] MEDS: ISOSORBIDE MONONITRATE ER 30 MG TAB.ER.24H PO SCH (21:27)
[2016-09-27] MEDS: INSULIN DETEMIR 300 UNITS/3 ML INSULN.PEN. SQ SCH (21:32)
--- NOTE | 2016-09-27 23:16 | PDOC ---
Provider Note Provider Note RENAL F/U : KIRIT S : No new issues. O : VSS Afebrile. Neck : Supple Lungs : Non labored. CVS : RRR Abd : Benign in appearance, without distention. Ext : 1+ edema Neuro : Awake. Labs reviewed. A/P : ARF/ATN EDEMA CKD III. CHF. Diuresing well. Labs. CPM. DENIS BETH MD Sep 27, 2016 23:16
[2016-09-28] MEDS: IV RINGERS,LACTATED 1000ML 1,000 ML IV SCH (02:50)
[2016-09-28 03:08] VITALS: BP 158/103
[2016-09-28] MEDS: LABETALOL 20 MG/4 ML DISP.SYRIN. IVP PRN (03:55)
[2016-09-28 04:42] LABS: BASO % 0 % (0-3); EOS % 0 % (0-3); HEMATOCRIT 26.4 % (39.0-53.0); HEMOGLOBIN 8.7 g/dL (13.0-17.5); LYMPH # 0.9 x10^3/uL (1.0-4.8); LYMPH % 11 % (24-48); MEAN CORPUSCULAR HEMOGLOBIN 29 pg (25-35); MEAN CORPUSCULAR HGB CONC 33 g/dL (31-37); MEAN CORPUSCULAR VOLUME 87 fL (79-100); MONO % 9 % (0-9); NEUT % 79 % (31-73); PLATELET COUNT 308 x10^3/uL (140-400); RED BLOOD COUNT 3.02 x10^6/uL (4.30-5.70); RED CELL DISTRIBUTION WIDTH 16.3 % (11.5-14.5); WHITE BLOOD COUNT 8.3 x10^3/uL (4.0-11.0)
[2016-09-28 05:08] LABS: ALBUMIN 2.3 g/dL (3.4-5.0); CALCIUM 8.5 mg/dL (8.5-10.1); CREATININE 2.6 mg/dL (0.7-1.3); GFR 29.3; MAGNESIUM 2.1 mg/dL (1.8-2.4); POTASSIUM 5.2 mmol/L (3.5-5.1)
[2016-09-28] MEDS: BUDESONIDE 0.5 MG/2 ML NEBU. NEB SCH ×2 (05:48→19:46)
[2016-09-28] MEDS: IPRATRPIUM/ALBUTEROL 0.5/2.5MG 3 ML NEBU. NEB SCH ×4 (05:48→19:46)
[2016-09-28 07:00] VITALS: BP 146/86
[2016-09-28] MEDS: INSULIN ASPART 300 UNITS/3 ML INSULN.PEN SQ SCH ×3 (08:00→17:00)
[2016-09-28] MEDS: ISOSORBIDE MONONITRATE ER 30 MG TAB.ER.24H PO SCH (09:06)
[2016-09-28] MEDS: CLOPIDOGREL BISULFATE 75 MG TABLET PO SCH (09:07)
[2016-09-28] MEDS: traMADol 50 MG TABLET PO PRN ×3 (09:07→21:05)
[2016-09-28] MEDS: BENZONATATE 100 MG CAPSULE. PO SCH ×3 (09:07→21:05)
--- NOTE | 2016-09-28 10:53 | PDOC ---
PULMONARY PROGRESS NOTES Subjective PT NOT MORE SOA Vitals Vital Signs Date Time Temp Pulse Resp B/P (MAP) Pulse Ox O2 Delivery O2 Flow Rate FiO2 09/28/16 10:49 98 Nasal Cannula 1.0 09/28/16 09:06 81 09/28/16 09:06 146/86 09/28/16 07:00 98.0 23 98.0 ROS: No Nausea, No Chest Pain, No Abdominal Pain, No Increase Cough General: Alert, No acute distress HEENT: Other Lungs: Clear, Other (bl decreased bs) Cardiovascular: S1, S2 Abdomen: Soft, Non-tender, Other Extremities: Other Labs Laboratory Tests Test 09/26/16 11:40 09/26/16 15:25 09/26/16 16:42 09/26/16 20:29 Glucose (Fingerstick) 191 mg/dL (70-99) 122 mg/dL (70-99) 236 mg/dL (70-99) Hemoglobin 7.3 g/dL (13.0-17.5) Test 09/27/16 03:40 09/27/16 07:36 09/27/16 12:02 09/27/16 16:40 White Blood Count 9.2 x10^3/uL (4.0-11.0) 13.3 x10^3/uL (4.0-11.0) Red Blood Count 2.40 x10^6/uL (4.30-5.70) 3.30 x10^6/uL (4.30-5.70) Hemoglobin 7.0 g/dL (13.0-17.5) 9.6 g/dL (13.0-17.5) Hematocrit 21.2 % (39.0-53.0) 29.7 % (39.0-53.0) Mean Corpuscular Volume 88 fL (79-100) 90 fL (79-100) Mean Corpuscular Hemoglobin 29 pg (25-35) 29 pg (25-35) Mean Corpuscular Hemoglobin Concent 33 g/dL (31-37) 32 g/dL (31-37) Red Cell Distribution Width 16.9 % (11.5-14.5) 16.1 % (11.5-14.5) Platelet Count 326 x10^3/uL (140-400) 332 x10^3/uL (140-400) Sodium Level 136 mmol/L (136-145) 137 mmol/L (136-145) Potassium Level 4.3 mmol/L (3.5-5.1) 4.8 mmol/L (3.5-5.1) Chloride Level 102 mmol/L (98-107) 101 mmol/L (98-107) Carbon Dioxide Level 28 mmol/L (21-32) 23 mmol/L (21-32) Anion Gap 6 (6-14) 13 (6-14) Blood Urea Nitrogen 53 mg/dL (8-26) 45 mg/dL (8-26) Creatinine 2.5 mg/dL (0.7-1.3) 2.5 mg/dL (0.7-1.3) Estimated GFR (Cockcroft-Gault) 30.7 30.7 BUN/Creatinine Ratio 21 (6-20) Glucose Level 106 mg/dL (70-99) 151 mg/dL (70-99) Calcium Level 8.3 mg/dL (8.5-10.1) 8.5 mg/dL (8.5-10.1) Phosphorus Level 4.3 mg/dL (2.6-4.7) Magnesium Level 2.0 mg/dL (1.8-2.4) 2.3 mg/dL (1.8-2.4) Total Bilirubin 0.3 mg/dL (0.2-1.0) Aspartate Amino Transf (AST/SGOT) 19 U/L (15-37) Alanine Aminotransferase (ALT/SGPT) 22 U/L (16-63) Alkaline Phosphatase 95 U/L (46-116) Creatine Kinase 43 U/L (39-308) Total Protein 6.0 g/dL (6.4-8.2) Albumin 2.3 g/dL (3.4-5.0) Albumin/Globulin Ratio 0.6 (1.0-1.7) Glucose (Fingerstick) 106 mg/dL (70-99) 103 mg/dL (70-99) Neutrophils (%) (Auto) 73 % (31-73) Lymphocytes (%) (Auto) 23 % (24-48) Monocytes (%) (Auto) 3 % (0-9) Eosinophils (%) (Auto) 1 % (0-3) Basophils (%) (Auto) 0 % (0-3) Neutrophils # (Auto) 9.7 x10^3uL (1.8-7.7) Lymphocytes # (Auto) 3.1 x10^3/uL (1.0-4.8) Monocytes # (Auto) 0.4 x10^3/uL (0.0-1.1) Eosinophils # (Auto) 0.1 x10^3/uL (0.0-0.7) Basophils # (Auto) 0.1 x10^3/uL (0.0-0.2) Test 09/27/16 16:43 09/27/16 17:10 09/27/16 20:26 09/28/16 04:00 Glucose (Fingerstick) 115 mg/dL (70-99) 120 mg/dL (70-99) O2 Saturation 76 % (92-99) Arterial Blood pH 7.35 (7.35-7.45) Arterial Blood pCO2 at Patient Temp 39 mmHg (35-46) Arterial Blood pO2 at Patient Temp 46 mmHg (65-108) Arterial Blood HCO3 21 mmol/L (21-28) Arterial Blood Base Excess -4 mmol/L (-3-3) FiO2 21 White Blood Count 8.3 x10^3/uL (4.0-11.0) Red Blood Count 3.02 x10^6/uL (4.30-5.70) Hemoglobin 8.7 g/dL (13.0-17.5) Hematocrit 26.4 % (39.0-53.0) Mean Corpuscular Volume 87 fL (79-100) Mean Corpuscular Hemoglobin 29 pg (25-35) Mean Corpuscular Hemoglobin Concent 33 g/dL (31-37) Red Cell Distribution Width 16.3 % (11.5-14.5) Platelet Count 308 x10^3/uL (140-400) Neutrophils (%) (Auto) 79 % (31-73) Lymphocytes (%) (Auto) 11 % (24-48) Monocytes (%) (Auto) 9 % (0-9) Eosinophils (%) (Auto) 0 % (0-3) Basophils (%) (Auto) 0 % (0-3) Neutrophils # (Auto) 6.6 x10^3uL (1.8-7.7) Lymphocytes # (Auto) 0.9 x10^3/uL (1.0-4.8) Monocytes # (Auto) 0.7 x10^3/uL (0.0-1.1) Eosinophils # (Auto) 0.0 x10^3/uL (0.0-0.7) Basophils # (Auto) 0.0 x10^3/uL (0.0-0.2) Sodium Level 136 mmol/L (136-145) Potassium Level 5.2 mmol/L (3.5-5.1) Chloride Level 102 mmol/L (98-107) Carbon Dioxide Level 29 mmol/L (21-32) Anion Gap 5 (6-14) Blood Urea Nitrogen 53 mg/dL (8-26) Creatinine 2.6 mg/dL (0.7-1.3) Estimated GFR (Cockcroft-Gault) 29.3 Glucose Level 166 mg/dL (70-99) Calcium Level 8.5 mg/dL (8.5-10.1) Phosphorus Level 5.0 mg/dL (2.6-4.7) Magnesium Level 2.1 mg/dL (1.8-2.4) Creatine Kinase 47 U/L (39-308) Albumin 2.3 g/dL (3.4-5.0) Test 09/28/16 07:43 Glucose (Fingerstick) 127 mg/dL (70-99) Laboratory Tests Test 09/27/16 12:02 09/27/16 16:40 09/27/16 16:43 09/27/16 17:10 Glucose (Fingerstick) 103 mg/dL (70-99) 115 mg/dL (70-99) White Blood Count 13.3 x10^3/uL (4.0-11.0) Red Blood Count 3.30 x10^6/uL (4.30-5.70) Hemoglobin 9.6 g/dL (13.0-17.5) Hematocrit 29.7 % (39.0-53.0) Mean Corpuscular Volume 90 fL (79-100) Mean Corpuscular Hemoglobin 29 pg (25-35) Mean Corpuscular Hemoglobin Concent 32 g/dL (31-37) Red Cell Distribution Width 16.1 % (11.5-14.5) Platelet Count 332 x10^3/uL (140-400) Neutrophils (%) (Auto) 73 % (31-73) Lymphocytes (%) (Auto) 23 % (24-48) Monocytes (%) (Auto) 3 % (0-9) Eosinophils (%) (Auto) 1 % (0-3) Basophils (%) (Auto) 0 % (0-3) Neutrophils # (Auto) 9.7 x10^3uL (1.8-7.7) Lymphocytes # (Auto) 3.1 x10^3/uL (1.0-4.8) Monocytes # (Auto) 0.4 x10^3/uL (0.0-1.1) Eosinophils # (Auto) 0.1 x10^3/uL (0.0-0.7) Basophils # (Auto) 0.1 x10^3/uL (0.0-0.2) Sodium Level 137 mmol/L (136-145) Potassium Level 4.8 mmol/L (3.5-5.1) Chloride Level 101 mmol/L (98-107) Carbon Dioxide Level 23 mmol/L (21-32) Anion Gap 13 (6-14) Blood Urea Nitrogen 45 mg/dL (8-26) Creatinine 2.5 mg/dL (0.7-1.3) Estimated GFR (Cockcroft-Gault) 30.7 Glucose Level 151 mg/dL (70-99) Calcium Level 8.5 mg/dL (8.5-10.1) Magnesium Level 2.3 mg/dL (1.8-2.4) O2 Saturation 76 % (92-99) Arterial Blood pH 7.35 (7.35-7.45) Arterial Blood pCO2 at Patient Temp 39 mmHg (35-46) Arterial Blood pO2 at Patient Temp 46 mmHg (65-108) Arterial Blood HCO3 21 mmol/L (21-28) Arterial Blood Base Excess -4 mmol/L (-3-3) FiO2 21 Test 09/27/16 20:26 09/28/16 04:00 09/28/16 07:43 Glucose (Fingerstick) 120 mg/dL (70-99) 127 mg/dL (70-99) White Blood Count 8.3 x10^3/uL (4.0-11.0) Red Blood Count 3.02 x10^6/uL (4.30-5.70) Hemoglobin 8.7 g/dL (13.0-17.5) Hematocrit 26.4 % (39.0-53.0) Mean Corpuscular Volume 87 fL (79-100) Mean Corpuscular Hemoglobin 29 pg (25-35) Mean Corpuscular Hemoglobin Concent 33 g/dL (31-37) Red Cell Distribution Width 16.3 % (11.5-14.5) Platelet Count 308 x10^3/uL (140-400) Neutrophils (%) (Auto) 79 % (31-73) Lymphocytes (%) (Auto) 11 % (24-48) Monocytes (%) (Auto) 9 % (0-9) Eosinophils (%) (Auto) 0 % (0-3) Basophils (%) (Auto) 0 % (0-3) Neutrophils # (Auto) 6.6 x10^3uL (1.8-7.7) Lymphocytes # (Auto) 0.9 x10^3/uL (1.0-4.8) Monocytes # (Auto) 0.7 x10^3/uL (0.0-1.1) Eosinophils # (Auto) 0.0 x10^3/uL (0.0-0.7) Basophils # (Auto) 0.0 x10^3/uL (0.0-0.2) Sodium Level 136 mmol/L (136-145) Potassium Level 5.2 mmol/L (3.5-5.1) Chloride Level 102 mmol/L (98-107) Carbon Dioxide Level 29 mmol/L (21-32) Anion Gap 5 (6-14) Blood Urea Nitrogen 53 mg/dL (8-26) Creatinine 2.6 mg/dL (0.7-1.3) Estimated GFR (Cockcroft-Gault) 29.3 Glucose Level 166 mg/dL (70-99) Calcium Level 8.5 mg/dL (8.5-10.1) Phosphorus Level 5.0 mg/dL (2.6-4.7) Magnesium Level 2.1 mg/dL (1.8-2.4) Creatine Kinase 47 U/L (39-308) Albumin 2.3 g/dL (3.4-5.0) Medications Active Scripts Medications Dose Route/Sig Max Daily Dose Days Date Category Levofloxacin 750 Mg Tablet 1 Tab PO DAILY 09/21/16 Rx Percocet 5-325 Mg Tablet (Oxycodone/Acetaminophen) 1 Each Tablet 1 Tab PO PRN Q6HRS PRN 07/30/16 Reported Advair 100-50 Diskus (Fluticasone/Salmeterol) 1 Each Disk.w.dev 1 Puff IH BID 06/21/16 Reported Spiriva Respimat (Tiotropium [place]) 4 Gm Mist.inhal 2.5 Gm IH DAILY 06/21/16 Reported Symbicort 160-4.5 Mcg Inhaler (Budesonide/Formoterol Fumarate) 10.2 Gm Hfa.aer.ad 2 Puff IH BID 06/21/16 Reported Atorvastatin Calcium 20 Mg Tablet 20 Mg PO HS 06/21/16 Reported Lisinopril-Hctz 10-12.5 Mg Tab (Lisinopril/Hydrochlorothiazide) 1 Each Tablet 1 Tab PO DAILY 06/21/16 Reported Isosorbide Mononitrate Er (Isosorbide Mononitrate) 120 Mg Tab.er.24h 120 Mg PO DAILY 06/21/16 Reported Levemir Flextouch (Insulin Detemir) 100 Unit/1 Ml Insuln.pen 20 Units SQ QHS 30 11/24/15 Rx Novolog Flexpen (Insulin Aspart) 100 Unit/1 Ml Insuln.pen 10 Units SQ TIDAC 30 11/24/15 Rx Novolin N (Nph, Human Insulin Isophane) 100 Unit/1 Ml Vial 0 SQ 11/18/15 Reported Promethazine-Codeine Syrup (Promethazine Hcl/Codeine) 118 Ml Syrup 5 Ml PO Q4-6HRS 11/18/15 Reported Diltiazem 24HR Cd (Diltiazem Hcl) 240 Mg Cap.er.24h 240 Mg PO DAILY 11/18/15 Reported NITROGLYCERIN SubLingual (Nitroglycerin) 0.4 Mg Tab.subl 0.4 Mg SL PRN Q5MIN PRN 11/18/15 Reported Atorvastatin Calcium 40 Mg Tablet 40 Mg PO HS 11/18/15 Reported Impression . 1. Acute/Chronic resp failure multifactorial/COPD 2. Acute encephalopathy improved 3. History of extensive pulmonary embolism, resulting in shock in June. Status post treatment with anticoagulation Makirelto with last CT angiogram done on 2016 has shown resolution of pulmonary embolism.He is s/p IVC filter. 4. History of IVC filter placement in June. 5. 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 6. Abnormal CXR with mild CHF 7. renal failure, 8. Anemia 9. PVD Plan . follow surgery input PT/OT no fci anticoagulation poor candidate DOUGIE RIVAS MD Sep 28, 2016 10:53
[2016-09-28] MEDS ORDERED: FUROSEMIDE 40 MG/4 ML VIAL. IVP ONE (11:00)
[2016-09-28 11:32] VITALS: BP 144/79
--- NOTE | 2016-09-28 12:46 | PDOC ---
LISS PIERCE TUBE BUFFER 09/28/16 1246: CARDIO Progress Notes Date and Time Date of Service 09/28/16 Time of Evaluation 1120 Subjective Subjective: No Chest Pain, No Palpitations, Other (right leg pain; mild dyspnea ) Vitals Vitals Vital Signs Date Time Temp Pulse Resp B/P (MAP) Pulse Ox O2 Delivery O2 Flow Rate FiO2 09/28/16 11:32 98.0 80 20 144/79 (100) 98 Nasal Cannula 98.0 09/28/16 10:49 1.0 Weight Weight [ ] Input and Output Intake and Output Intake and Output 09/28/16 07:00 Intake Total 1719 ml Output Total 1450 ml Balance 269 ml Intake Oral 340 ml IV Total 1050 ml Blood Product IV Normal Saline Flush 329 ml Output Urine Total 1400 ml Estimated Blood Loss 50 ml Laboratory Labs Laboratory Tests Test 09/27/16 16:40 09/27/16 16:43 09/27/16 17:10 09/27/16 20:26 White Blood Count 13.3 x10^3/uL (4.0-11.0) Red Blood Count 3.30 x10^6/uL (4.30-5.70) Hemoglobin 9.6 g/dL (13.0-17.5) Hematocrit 29.7 % (39.0-53.0) Mean Corpuscular Volume 90 fL (79-100) Mean Corpuscular Hemoglobin 29 pg (25-35) Mean Corpuscular Hemoglobin Concent 32 g/dL (31-37) Red Cell Distribution Width 16.1 % (11.5-14.5) Platelet Count 332 x10^3/uL (140-400) Neutrophils (%) (Auto) 73 % (31-73) Lymphocytes (%) (Auto) 23 % (24-48) Monocytes (%) (Auto) 3 % (0-9) Eosinophils (%) (Auto) 1 % (0-3) Basophils (%) (Auto) 0 % (0-3) Neutrophils # (Auto) 9.7 x10^3uL (1.8-7.7) Lymphocytes # (Auto) 3.1 x10^3/uL (1.0-4.8) Monocytes # (Auto) 0.4 x10^3/uL (0.0-1.1) Eosinophils # (Auto) 0.1 x10^3/uL (0.0-0.7) Basophils # (Auto) 0.1 x10^3/uL (0.0-0.2) Sodium Level 137 mmol/L (136-145) Potassium Level 4.8 mmol/L (3.5-5.1) Chloride Level 101 mmol/L (98-107) Carbon Dioxide Level 23 mmol/L (21-32) Anion Gap 13 (6-14) Blood Urea Nitrogen 45 mg/dL (8-26) Creatinine 2.5 mg/dL (0.7-1.3) Estimated GFR (Cockcroft-Gault) 30.7 Glucose Level 151 mg/dL (70-99) Calcium Level 8.5 mg/dL (8.5-10.1) Magnesium Level 2.3 mg/dL (1.8-2.4) Glucose (Fingerstick) 115 mg/dL (70-99) 120 mg/dL (70-99) O2 Saturation 76 % (92-99) Arterial Blood pH 7.35 (7.35-7.45) Arterial Blood pCO2 at Patient Temp 39 mmHg (35-46) Arterial Blood pO2 at Patient Temp 46 mmHg (65-108) Arterial Blood HCO3 21 mmol/L (21-28) Arterial Blood Base Excess -4 mmol/L (-3-3) FiO2 21 Test 09/28/16 04:00 09/28/16 07:43 09/28/16 12:05 White Blood Count 8.3 x10^3/uL (4.0-11.0) Red Blood Count 3.02 x10^6/uL (4.30-5.70) Hemoglobin 8.7 g/dL (13.0-17.5) Hematocrit 26.4 % (39.0-53.0) Mean Corpuscular Volume 87 fL (79-100) Mean Corpuscular Hemoglobin 29 pg (25-35) Mean Corpuscular Hemoglobin Concent 33 g/dL (31-37) Red Cell Distribution Width 16.3 % (11.5-14.5) Platelet Count 308 x10^3/uL (140-400) Neutrophils (%) (Auto) 79 % (31-73) Lymphocytes (%) (Auto) 11 % (24-48) Monocytes (%) (Auto) 9 % (0-9) Eosinophils (%) (Auto) 0 % (0-3) Basophils (%) (Auto) 0 % (0-3) Neutrophils # (Auto) 6.6 x10^3uL (1.8-7.7) Lymphocytes # (Auto) 0.9 x10^3/uL (1.0-4.8) Monocytes # (Auto) 0.7 x10^3/uL (0.0-1.1) Eosinophils # (Auto) 0.0 x10^3/uL (0.0-0.7) Basophils # (Auto) 0.0 x10^3/uL (0.0-0.2) Sodium Level 136 mmol/L (136-145) Potassium Level 5.2 mmol/L (3.5-5.1) Chloride Level 102 mmol/L (98-107) Carbon Dioxide Level 29 mmol/L (21-32) Anion Gap 5 (6-14) Blood Urea Nitrogen 53 mg/dL (8-26) Creatinine 2.6 mg/dL (0.7-1.3) Estimated GFR (Cockcroft-Gault) 29.3 Glucose Level 166 mg/dL (70-99) Calcium Level 8.5 mg/dL (8.5-10.1) Phosphorus Level 5.0 mg/dL (2.6-4.7) Magnesium Level 2.1 mg/dL (1.8-2.4) Creatine Kinase 47 U/L (39-308) Albumin 2.3 g/dL (3.4-5.0) Glucose (Fingerstick) 127 mg/dL (70-99) 238 mg/dL (70-99) Microbiology Micro Microbiology 09/22/16 Blood Culture - Final, Complete NO GROWTH AFTER 5 DAYS Physical Exam HEENT: Neck Supple W Full Motion Chest: Symmetric LUNGS: Other (diminished bases with scattered fine crackles ) Heart: S1S2, RRR, murmurs (soft systolic murmur) Abdomen: Soft N/T Extremities: Other (1+ bilateral LE edema. DRSG intact to RLE ) Neurology: alert, follow commands Assessment Assessment 1. Acute on chronic diastolic CHF secondary to volume overload 2. PAD s/p right popliteal to dorsalis pedis bypass; POD #1 3. HTN 4. Anemia 5. BASIM on CKD 6. DM2 7. HLP Recommendations Discontinue post-op IVF. Will give dose of IV Lasix x1 now. Monitoring of renal function. Reassess fluid status/need for additional diuresis in am. Continue supportive care. Post op management per vascular sx team Will obtain LE duplex to note presence of significant flow-limiting disease. No further ischemic cardiac workup warranted as patient has had recent cath with no obstructive disease Continue supportive care CLEO JUAREZ MD 09/28/16 1718: CARDIO Progress Notes Plan Plan Pt. seen and examined. Agree with above PRODUCTION CONTROL COORDINATING CLERK note. No acute events overnight. S/p Successful surgery to the RLE Normal cardiac tones. Decreased breath sounds at the bases. Lasix 80mg IVP x 1 . Monitor I/O's closely Will follow. LISS PIERCE APRN Sep 28, 2016 12:46 CLEO JUAREZ MD Sep 28, 2016 17:18
--- NOTE | 2016-09-28 13:47 | PDOC ---
PROGRESS NOTES Chief Complaint Chief Complaint 1, Hypoglycemia with acute encephalopathy POA, resolved 2. 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 Mod PCM 4. High fall risk 5. CLaudication R>L 6. Gen weakness Old dx: 2. HX bilateral [facility] sec to PE 3. CLean cardiac cath 4.Hx Non-occlusive thrombus, R leg (07/15) 5. COPD on home o2? exacerbation - wheezy 6. DM2; insulin requiring with HYPOGLYCEMIA 7. Hx Oliguric Hyperkalemic renal failure - stable 8 Dyslipidemia on statin 9. HX significant angioedema likely sec to ADAN inhib needing intubation (06/2016) History of Present Illness History of Present Illness s/p fem pop bypass R leg 09/27 - POD # 1 NOw they plan to heel debridement duyen LAbs ok BS ok VS ok Pt ok Dw RN PLAN: CPM NPO post mN Vitals Vitals Vital Signs Date Time Temp Pulse Resp B/P (MAP) Pulse Ox O2 Delivery O2 Flow Rate FiO2 09/28/16 11:32 98.0 80 20 144/79 (100) 98 Nasal Cannula 98.0 09/28/16 10:49 1.0 Physical Exam General: Other (Resting with NAD) Heart: Regular rate (Sinus tach), Normal S1, Normal S2, Other (3/6 systolic murmur to LLS border) Lungs: Clear, Other (bl decreased bs) Abdomen: Soft, No tenderness Extremities: No clubbing, No cyanosis, Other (dry gangrene right heel and spotty digital gangrene) Skin: No rashes Labs LABS Laboratory Tests Test 09/27/16 16:40 09/27/16 16:43 09/27/16 17:10 09/27/16 20:26 White Blood Count 13.3 x10^3/uL (4.0-11.0) Red Blood Count 3.30 x10^6/uL (4.30-5.70) Hemoglobin 9.6 g/dL (13.0-17.5) Hematocrit 29.7 % (39.0-53.0) Mean Corpuscular Volume 90 fL (79-100) Mean Corpuscular Hemoglobin 29 pg (25-35) Mean Corpuscular Hemoglobin Concent 32 g/dL (31-37) Red Cell Distribution Width 16.1 % (11.5-14.5) Platelet Count 332 x10^3/uL (140-400) Neutrophils (%) (Auto) 73 % (31-73) Lymphocytes (%) (Auto) 23 % (24-48) Monocytes (%) (Auto) 3 % (0-9) Eosinophils (%) (Auto) 1 % (0-3) Basophils (%) (Auto) 0 % (0-3) Neutrophils # (Auto) 9.7 x10^3uL (1.8-7.7) Lymphocytes # (Auto) 3.1 x10^3/uL (1.0-4.8) Monocytes # (Auto) 0.4 x10^3/uL (0.0-1.1) Eosinophils # (Auto) 0.1 x10^3/uL (0.0-0.7) Basophils # (Auto) 0.1 x10^3/uL (0.0-0.2) Sodium Level 137 mmol/L (136-145) Potassium Level 4.8 mmol/L (3.5-5.1) Chloride Level 101 mmol/L (98-107) Carbon Dioxide Level 23 mmol/L (21-32) Anion Gap 13 (6-14) Blood Urea Nitrogen 45 mg/dL (8-26) Creatinine 2.5 mg/dL (0.7-1.3) Estimated GFR (Cockcroft-Gault) 30.7 Glucose Level 151 mg/dL (70-99) Calcium Level 8.5 mg/dL (8.5-10.1) Magnesium Level 2.3 mg/dL (1.8-2.4) Glucose (Fingerstick) 115 mg/dL (70-99) 120 mg/dL (70-99) O2 Saturation 76 % (92-99) Arterial Blood pH 7.35 (7.35-7.45) Arterial Blood pCO2 at Patient Temp 39 mmHg (35-46) Arterial Blood pO2 at Patient Temp 46 mmHg (65-108) Arterial Blood HCO3 21 mmol/L (21-28) Arterial Blood Base Excess -4 mmol/L (-3-3) FiO2 21 Test 09/28/16 04:00 09/28/16 07:43 09/28/16 12:05 White Blood Count 8.3 x10^3/uL (4.0-11.0) Red Blood Count 3.02 x10^6/uL (4.30-5.70) Hemoglobin 8.7 g/dL (13.0-17.5) Hematocrit 26.4 % (39.0-53.0) Mean Corpuscular Volume 87 fL (79-100) Mean Corpuscular Hemoglobin 29 pg (25-35) Mean Corpuscular Hemoglobin Concent 33 g/dL (31-37) Red Cell Distribution Width 16.3 % (11.5-14.5) Platelet Count 308 x10^3/uL (140-400) Neutrophils (%) (Auto) 79 % (31-73) Lymphocytes (%) (Auto) 11 % (24-48) Monocytes (%) (Auto) 9 % (0-9) Eosinophils (%) (Auto) 0 % (0-3) Basophils (%) (Auto) 0 % (0-3) Neutrophils # (Auto) 6.6 x10^3uL (1.8-7.7) Lymphocytes # (Auto) 0.9 x10^3/uL (1.0-4.8) Monocytes # (Auto) 0.7 x10^3/uL (0.0-1.1) Eosinophils # (Auto) 0.0 x10^3/uL (0.0-0.7) Basophils # (Auto) 0.0 x10^3/uL (0.0-0.2) Sodium Level 136 mmol/L (136-145) Potassium Level 5.2 mmol/L (3.5-5.1) Chloride Level 102 mmol/L (98-107) Carbon Dioxide Level 29 mmol/L (21-32) Anion Gap 5 (6-14) Blood Urea Nitrogen 53 mg/dL (8-26) Creatinine 2.6 mg/dL (0.7-1.3) Estimated GFR (Cockcroft-Gault) 29.3 Glucose Level 166 mg/dL (70-99) Calcium Level 8.5 mg/dL (8.5-10.1) Phosphorus Level 5.0 mg/dL (2.6-4.7) Magnesium Level 2.1 mg/dL (1.8-2.4) Creatine Kinase 47 U/L (39-308) Albumin 2.3 g/dL (3.4-5.0) Glucose (Fingerstick) 127 mg/dL (70-99) 238 mg/dL (70-99) Review of Systems Review of Systems denies 14 pt Assessment and Plan Assessmemt and Plan Problems Medical Problems: (1) Hypoglycemia Status: Acute Problems: Comment Review of Relevant I have reviewed the following items valerie (where applicable) has been applied. Labs Laboratory Tests Test 09/26/16 15:25 09/26/16 16:42 09/26/16 20:29 09/27/16 03:40 Hemoglobin 7.3 g/dL (13.0-17.5) 7.0 g/dL (13.0-17.5) Glucose (Fingerstick) 122 mg/dL (70-99) 236 mg/dL (70-99) White Blood Count 9.2 x10^3/uL (4.0-11.0) Red Blood Count 2.40 x10^6/uL (4.30-5.70) Hematocrit 21.2 % (39.0-53.0) Mean Corpuscular Volume 88 fL (79-100) Mean Corpuscular Hemoglobin 29 pg (25-35) Mean Corpuscular Hemoglobin Concent 33 g/dL (31-37) Red Cell Distribution Width 16.9 % (11.5-14.5) Platelet Count 326 x10^3/uL (140-400) Sodium Level 136 mmol/L (136-145) Potassium Level 4.3 mmol/L (3.5-5.1) Chloride Level 102 mmol/L (98-107) Carbon Dioxide Level 28 mmol/L (21-32) Anion Gap 6 (6-14) Blood Urea Nitrogen 53 mg/dL (8-26) Creatinine 2.5 mg/dL (0.7-1.3) Estimated GFR (Cockcroft-Gault) 30.7 BUN/Creatinine Ratio 21 (6-20) Glucose Level 106 mg/dL (70-99) Calcium Level 8.3 mg/dL (8.5-10.1) Phosphorus Level 4.3 mg/dL (2.6-4.7) Magnesium Level 2.0 mg/dL (1.8-2.4) Total Bilirubin 0.3 mg/dL (0.2-1.0) Aspartate Amino Transf (AST/SGOT) 19 U/L (15-37) Alanine Aminotransferase (ALT/SGPT) 22 U/L (16-63) Alkaline Phosphatase 95 U/L (46-116) Creatine Kinase 43 U/L (39-308) Total Protein 6.0 g/dL (6.4-8.2) Albumin 2.3 g/dL (3.4-5.0) Albumin/Globulin Ratio 0.6 (1.0-1.7) Test 09/27/16 07:36 09/27/16 12:02 09/27/16 16:40 09/27/16 16:43 Glucose (Fingerstick) 106 mg/dL (70-99) 103 mg/dL (70-99) 115 mg/dL (70-99) White Blood Count 13.3 x10^3/uL (4.0-11.0) Red Blood Count 3.30 x10^6/uL (4.30-5.70) Hemoglobin 9.6 g/dL (13.0-17.5) Hematocrit 29.7 % (39.0-53.0) Mean Corpuscular Volume 90 fL (79-100) Mean Corpuscular Hemoglobin 29 pg (25-35) Mean Corpuscular Hemoglobin Concent 32 g/dL (31-37) Red Cell Distribution Width 16.1 % (11.5-14.5) Platelet Count 332 x10^3/uL (140-400) Neutrophils (%) (Auto) 73 % (31-73) Lymphocytes (%) (Auto) 23 % (24-48) Monocytes (%) (Auto) 3 % (0-9) Eosinophils (%) (Auto) 1 % (0-3) Basophils (%) (Auto) 0 % (0-3) Neutrophils # (Auto) 9.7 x10^3uL (1.8-7.7) Lymphocytes # (Auto) 3.1 x10^3/uL (1.0-4.8) Monocytes # (Auto) 0.4 x10^3/uL (0.0-1.1) Eosinophils # (Auto) 0.1 x10^3/uL (0.0-0.7) Basophils # (Auto) 0.1 x10^3/uL (0.0-0.2) Sodium Level 137 mmol/L (136-145) Potassium Level 4.8 mmol/L (3.5-5.1) Chloride Level 101 mmol/L (98-107) Carbon Dioxide Level 23 mmol/L (21-32) Anion Gap 13 (6-14) Blood Urea Nitrogen 45 mg/dL (8-26) Creatinine 2.5 mg/dL (0.7-1.3) Estimated GFR (Cockcroft-Gault) 30.7 Glucose Level 151 mg/dL (70-99) Calcium Level 8.5 mg/dL (8.5-10.1) Magnesium Level 2.3 mg/dL (1.8-2.4) Test 09/27/16 17:10 09/27/16 20:26 09/28/16 04:00 09/28/16 07:43 O2 Saturation 76 % (92-99) Arterial Blood pH 7.35 (7.35-7.45) Arterial Blood pCO2 at Patient Temp 39 mmHg (35-46) Arterial Blood pO2 at Patient Temp 46 mmHg (65-108) Arterial Blood HCO3 21 mmol/L (21-28) Arterial Blood Base Excess -4 mmol/L (-3-3) FiO2 21 Glucose (Fingerstick) 120 mg/dL (70-99) 127 mg/dL (70-99) White Blood Count 8.3 x10^3/uL (4.0-11.0) Red Blood Count 3.02 x10^6/uL (4.30-5.70) Hemoglobin 8.7 g/dL (13.0-17.5) Hematocrit 26.4 % (39.0-53.0) Mean Corpuscular Volume 87 fL (79-100) Mean Corpuscular Hemoglobin 29 pg (25-35) Mean Corpuscular Hemoglobin Concent 33 g/dL (31-37) Red Cell Distribution Width 16.3 % (11.5-14.5) Platelet Count 308 x10^3/uL (140-400) Neutrophils (%) (Auto) 79 % (31-73) Lymphocytes (%) (Auto) 11 % (24-48) Monocytes (%) (Auto) 9 % (0-9) Eosinophils (%) (Auto) 0 % (0-3) Basophils (%) (Auto) 0 % (0-3) Neutrophils # (Auto) 6.6 x10^3uL (1.8-7.7) Lymphocytes # (Auto) 0.9 x10^3/uL (1.0-4.8) Monocytes # (Auto) 0.7 x10^3/uL (0.0-1.1) Eosinophils # (Auto) 0.0 x10^3/uL (0.0-0.7) Basophils # (Auto) 0.0 x10^3/uL (0.0-0.2) Sodium Level 136 mmol/L (136-145) Potassium Level 5.2 mmol/L (3.5-5.1) Chloride Level 102 mmol/L (98-107) Carbon Dioxide Level 29 mmol/L (21-32) Anion Gap 5 (6-14) Blood Urea Nitrogen 53 mg/dL (8-26) Creatinine 2.6 mg/dL (0.7-1.3) Estimated GFR (Cockcroft-Gault) 29.3 Glucose Level 166 mg/dL (70-99) Calcium Level 8.5 mg/dL (8.5-10.1) Phosphorus Level 5.0 mg/dL (2.6-4.7) Magnesium Level 2.1 mg/dL (1.8-2.4) Creatine Kinase 47 U/L (39-308) Albumin 2.3 g/dL (3.4-5.0) Test 09/28/16 12:05 Glucose (Fingerstick) 238 mg/dL (70-99) Laboratory Tests Test 09/27/16 16:40 09/27/16 16:43 09/27/16 17:10 09/27/16 20:26 White Blood Count 13.3 x10^3/uL (4.0-11.0) Red Blood Count 3.30 x10^6/uL (4.30-5.70) Hemoglobin 9.6 g/dL (13.0-17.5) Hematocrit 29.7 % (39.0-53.0) Mean Corpuscular Volume 90 fL (79-100) Mean Corpuscular Hemoglobin 29 pg (25-35) Mean Corpuscular Hemoglobin Concent 32 g/dL (31-37) Red Cell Distribution Width 16.1 % (11.5-14.5) Platelet Count 332 x10^3/uL (140-400) Neutrophils (%) (Auto) 73 % (31-73) Lymphocytes (%) (Auto) 23 % (24-48) Monocytes (%) (Auto) 3 % (0-9) Eosinophils (%) (Auto) 1 % (0-3) Basophils (%) (Auto) 0 % (0-3) Neutrophils # (Auto) 9.7 x10^3uL (1.8-7.7) Lymphocytes # (Auto) 3.1 x10^3/uL (1.0-4.8) Monocytes # (Auto) 0.4 x10^3/uL (0.0-1.1) Eosinophils # (Auto) 0.1 x10^3/uL (0.0-0.7) Basophils # (Auto) 0.1 x10^3/uL (0.0-0.2) Sodium Level 137 mmol/L (136-145) Potassium Level 4.8 mmol/L (3.5-5.1) Chloride Level 101 mmol/L (98-107) Carbon Dioxide Level 23 mmol/L (21-32) Anion Gap 13 (6-14) Blood Urea Nitrogen 45 mg/dL (8-26) Creatinine 2.5 mg/dL (0.7-1.3) Estimated GFR (Cockcroft-Gault) 30.7 Glucose Level 151 mg/dL (70-99) Calcium Level 8.5 mg/dL (8.5-10.1) Magnesium Level 2.3 mg/dL (1.8-2.4) Glucose (Fingerstick) 115 mg/dL (70-99) 120 mg/dL (70-99) O2 Saturation 76 % (92-99) Arterial Blood pH 7.35 (7.35-7.45) Arterial Blood pCO2 at Patient Temp 39 mmHg (35-46) Arterial Blood pO2 at Patient Temp 46 mmHg (65-108) Arterial Blood HCO3 21 mmol/L (21-28) Arterial Blood Base Excess -4 mmol/L (-3-3) FiO2 21 Test 09/28/16 04:00 09/28/16 07:43 09/28/16 12:05 White Blood Count 8.3 x10^3/uL (4.0-11.0) Red Blood Count 3.02 x10^6/uL (4.30-5.70) Hemoglobin 8.7 g/dL (13.0-17.5) Hematocrit 26.4 % (39.0-53.0) Mean Corpuscular Volume 87 fL (79-100) Mean Corpuscular Hemoglobin 29 pg (25-35) Mean Corpuscular Hemoglobin Concent 33 g/dL (31-37) Red Cell Distribution Width 16.3 % (11.5-14.5) Platelet Count 308 x10^3/uL (140-400) Neutrophils (%) (Auto) 79 % (31-73) Lymphocytes (%) (Auto) 11 % (24-48) Monocytes (%) (Auto) 9 % (0-9) Eosinophils (%) (Auto) 0 % (0-3) Basophils (%) (Auto) 0 % (0-3) Neutrophils # (Auto) 6.6 x10^3uL (1.8-7.7) Lymphocytes # (Auto) 0.9 x10^3/uL (1.0-4.8) Monocytes # (Auto) 0.7 x10^3/uL (0.0-1.1) Eosinophils # (Auto) 0.0 x10^3/uL (0.0-0.7) Basophils # (Auto) 0.0 x10^3/uL (0.0-0.2) Sodium Level 136 mmol/L (136-145) Potassium Level 5.2 mmol/L (3.5-5.1) Chloride Level 102 mmol/L (98-107) Carbon Dioxide Level 29 mmol/L (21-32) Anion Gap 5 (6-14) Blood Urea Nitrogen 53 mg/dL (8-26) Creatinine 2.6 mg/dL (0.7-1.3) Estimated GFR (Cockcroft-Gault) 29.3 Glucose Level 166 mg/dL (70-99) Calcium Level 8.5 mg/dL (8.5-10.1) Phosphorus Level 5.0 mg/dL (2.6-4.7) Magnesium Level 2.1 mg/dL (1.8-2.4) Creatine Kinase 47 U/L (39-308) Albumin 2.3 g/dL (3.4-5.0) Glucose (Fingerstick) 127 mg/dL (70-99) 238 mg/dL (70-99) Microbiology 5/31/17 Blood Culture - Final, Complete NO GROWTH AFTER 5 DAYS Medications Current Medications Dextrose (Dextrose 50%-Water Syringe) 25 gm STK-MED ONCE IV ; Start 09/22/16 at 10:39; Stop 09/22/16 at 10:40; Status DC Dextrose 500 ml @ 30 mls/hr 1X ONCE IV Last administered on 09/22/16 11:52; Start 09/22/16 at 11:45; Stop 09/22/16 at 17:38; Status DC Dextrose (Dextrose 50%-Water Syringe) 25 gm STK-MED ONCE IV ; Start 09/22/16 at 11:45; Stop 09/22/16 at 11:46; Status DC Dextrose (Dextrose 50%-Water Syringe) 25 gm 1X ONCE IV Last administered on 10:45; Start 09/22/16 at 12:00; Stop 09/22/16 at 12:01; Status DC Dextrose (Dextrose 50%-Water Syringe) 25 gm 1X ONCE IV Last administered on 11:40; Start 09/22/16 at 12:00; Stop 09/22/16 at 12:01; Status DC Nitroglycerin (Nitrostat) 0.4 mg PRN Q5MIN PRN SL CHEST PAIN Last administered on 09/24/16 03:18; Start 09/22/16 at 12:00 Ondansetron HCl (Zofran) 4 mg PRN Q8HRS PRN IV NAUSEA/VOMITING; Start 09/22/16 at 12:30; Stop 09/23/16 at 12:29; Status DC Levofloxacin/ Dextrose (Levaquin Per Pharmacy) 1 each PRN DAILY PRN MC SEE COMMENTS; Start 09/22/16 at 12:45; Stop 09/25/16 at 15:18; Status DC Levofloxacin/ Dextrose 150 ml @ 100 mls/hr Q48H IV Last administered on 13:32; Start 09/22/16 at 13:00 Sodium Chloride 500 ml @ 1,000 mls/hr 1X ONCE IV Last administered on 13:10; Start 09/22/16 at 13:15; Stop 09/22/16 at 13:44; Status DC Dextrose (Dextrose 50%-Water Syringe) 25 gm 1X ONCE IV Last administered on 13:11; Start 09/22/16 at 13:15; Stop 09/22/16 at 13:16; Status DC Insulin Aspart (NovoLOG) 0-5 UNITS TIDWMEALS SQ Last administered on 09/22/16 18:17; Start 09/22/16 at 17:00; Stop 09/23/16 at 09:23; Status DC Dextrose (Dextrose 50%-Water Syringe) 12.5 gm PRN Q15MIN PRN IV SEE COMMENTS Last administered on 09/22/16 13:58; Start 09/22/16 at 14:00 Labetalol HCl (Normodyne) 20 mg PRN Q2HR PRN IVP HYPERTENSION, SEE COMMENTS Last administered on 09/28/16 03:55; Start 09/22/16 at 14:15 Amlodipine Besylate (Norvasc) 10 mg DAILY PO ; Start 09/23/16 at 09:00; Status UNV Atorvastatin Calcium (Lipitor) 40 mg HS PO Last administered on 09/27/16 21:26 ; Start 09/22/16 at 21:00 Diltiazem HCl (Cardizem 24hr Cd) 240 mg DAILY PO Last administered on 09/28/16 09:06; Start 09/22/16 at 15:00 Isosorbide Mononitrate (Imdur) 120 mg DAILY PO Last administered on 09/28/16 09 :06; Start 09/22/16 at 15:00 Albuterol/ Ipratropium (Duoneb) 3 ml STK-MED ONCE .ROUTE ; Start 09/22/16 at 15: 06; Stop 09/22/16 at 15:07; Status DC Albuterol/ Ipratropium (Duoneb) 3 ml RTQID NEB Last administered on 09/28/16 10 :49; Start 09/22/16 at 16:00 Budesonide (Pulmicort) 0.5 mg RTBID NEB Last administered on 09/28/16 05:48; Start 09/22/16 at 20:00 Magnesium Sulfate/ Dextrose 50 ml @ 25 mls/hr PRN DAILY PRN IV for Mag < 1.7 on am labs; Start 09/22/16 at 15:45 Sodium Chloride 1,000 ml @ 100 mls/hr Q10H IV Last administered on 09/23/16 01 :35; Start 09/22/16 at 15:45; Stop 09/23/16 at 07:45; Status DC Dextrose 1,000 ml @ 50 mls/hr Q20H IV Last administered on 09/22/16 17:39; Start 09/22/16 at 17:45; Stop 09/23/16 at 07:45; Status DC Insulin Aspart (NovoLOG) 0-9 UNITS TIDWMEALS SQ Last administered on 09/28/16 12:56; Start 09/23/16 at 12:00 Dextrose (Dextrose 50%-Water Syringe) 12.5 gm PRN Q15MIN PRN IV SEE COMMENTS; Start 09/23/16 at 09:30; Stop 09/23/16 at 12:56; Status DC Albuterol/ Ipratropium (Duoneb) 3 ml RTQID NEB ; Start 09/23/16 at 12:00; Stop at 12:56; Status DC Prednisone (Prednisone) 60 mg 1X ONCE PO Last administered on 09/23/16 10:00; Start 09/23/16 at 09:30; Stop 09/23/16 at 09:31; Status DC Benzonatate (Tessalon Perle) 100 mg [id number] PO Last administered on 09/28/16 09: 07; Start 09/23/16 at 09:30 Furosemide (Lasix) 20 mg 1X ONCE IVP Last administered on 09/23/16 17:30; Start 09/23/16 at 17:30; Stop 09/23/16 at 17:31; Status DC Furosemide (Lasix) 80 mg 1X ONCE IVP Last administered on 09/24/16 15:56; Start 09/24/16 at 11:00; Stop 09/24/16 at 11:03; Status DC Acetylcysteine (Mucomyst 20% Oral Solution) 1,200 mg BID PO Last administered on 09/26/16 08:51; Start 09/24/16 at 11:30; Stop 09/26/16 at 11:29; Status DC Darbepoetin Arsh (Aranesp) 60 mcg [id number] SQ Last administered on 09/24/16 20: 23; Start 09/24/16 at 21:00 Tramadol HCl (Ultram) 50 mg PRN Q6HRS PRN PO PAIN Last administered on 09:07; Start 09/24/16 at 11:30 Iohexol (Omnipaque 300 Mg/ml) 100 ml STK-MED ONCE .ROUTE ; Start 09/24/16 at 12: 12; Stop 09/24/16 at 12:13; Status DC Lidocaine/Sodium Bicarbonate (Buffered Lidocaine 1%) 20 ml STK-MED ONCE IJ ; Start 09/24/16 at 12:12; Stop 09/24/16 at 12:13; Status DC Midazolam HCl (Versed) 5 mg STK-MED ONCE .ROUTE ; Start 09/24/16 at 12:12; Stop 09/24/16 at 12:13; Status DC Fentanyl Citrate (Fentanyl 5ml Vial) 250 mcg STK-MED ONCE .ROUTE ; Start at 12:12; Stop 09/24/16 at 12:13; Status DC Heparin Sodium/ Sodium Chloride 2,000 ml @ As Directed STK-MED ONCE .ROUTE ; Start 09/24/16 at 12:13; Stop 09/24/16 at 12:14; Status DC Iodixanol (Visipaque 320) 100 ml STK-MED ONCE .ROUTE ; Start 09/24/16 at 12:13; Stop 09/24/16 at 12:14; Status DC Heparin Sodium (Porcine) (Heparin Sodium) 10,000 unit STK-MED ONCE .ROUTE ; Start 09/24/16 at 12:15; Stop 09/24/16 at 12:16; Status DC Insulin Detemir (Levemir) 10 units QHS SQ Last administered on 09/27/16 21:32; Start 09/24/16 at 21:00 Heparin Sodium/ Sodium Chloride 1,000 unit 1X ONCE IART Last administered on 14:52; Start 09/24/16 at 14:00; Stop 09/24/16 at 14:01; Status DC Lidocaine/Sodium Bicarbonate (Buffered Lidocaine 1%) 20 ml 1X ONCE IJ Last administered on 09/24/16 14:00; Start 09/24/16 at 14:00; Stop 09/24/16 at 14:01; Status DC Midazolam HCl (Versed) 5 mg 1X ONCE IV ; Start 09/24/16 at 14:00; Stop 09/24/16 at 14:01; Status DC Fentanyl Citrate (Fentanyl 5ml Vial) 250 mcg 1X ONCE IV ; Start 09/24/16 at 14: 00; Stop 09/24/16 at 14:01; Status DC Iohexol (Omnipaque 300 Mg/ml) 100 ml 1X ONCE IART Last administered on 14:51; Start 09/24/16 at 14:00; Stop 09/24/16 at 14:01; Status DC Iodixanol (Visipaque 320) 100 ml 1X ONCE IART Last administered on 09/24/16 14 :00; Start 09/24/16 at 14:00; Stop 09/24/16 at 14:01; Status DC Heparin Sodium (Porcine) (Heparin Sodium) 4,000 unit 1X ONCE IV Last administered on 09/24/16 14:00; Start 09/24/16 at 14:00; Stop 09/24/16 at 14:01; Status DC Info (Do NOT chart on this entry -- for MONITORING) 1 each PRN DAILY PRN MC SEE COMMENTS; Start 09/24/16 at 14:15; Stop 09/26/16 at 14:14; Status DC Clopidogrel Bisulfate (Plavix) 300 mg 1X ONCE PO Last administered on 16:01; Start 09/24/16 at 15:30; Stop 09/24/16 at 15:31; Status DC Clopidogrel Bisulfate (Plavix) 75 mg [id number] PO Last administered on 09:07; Start 09/25/16 at 08:00; Stop 10/25/16 at 08:00 Ringer's Solution 1,000 ml @ 100 mls/hr Q10H IV ; Start 09/27/16 at 00:01; Stop 09/27/16 at 00:01; Status DC Cefazolin Sodium/ Dextrose 50 ml @ 100 mls/hr 1X PREOP PRN IV SEE COMMENTS Last administered on 09/27/16 13:22; Start 09/27/16 at 06:00; Stop 09/27/16 at 18: 00; Status DC Heparin Sodium (Porcine) 5000 unit/Sodium Chloride 505 ml @ 505 mls/hr 1X PERIOP ONCE IRR Last administered on 09/27/16 13:36; Start 09/27/16 at 07:15; Stop 09/27/16 at 08:14; Status DC Cefazolin Sodium 1 gm/Sodium Chloride 500 ml @ 500 mls/hr 1X PERIOP ONCE IRR Last administered on 09/27/16 13:36; Start 09/27/16 at 07:15; Stop 09/27/16 at 08: 14; Status DC Furosemide (Lasix) 40 mg 1X ONCE IVP Last administered on 09/27/16 13:20; Start 09/27/16 at 11:00; Stop 09/27/16 at 11:01; Status DC Lidocaine HCl (Lidocaine Pf 2% Vial) 5 ml STK-MED ONCE .ROUTE ; Start 09/27/16 at 11:42; Stop 09/27/16 at 11:43; Status DC Ondansetron HCl (Zofran) 4 mg STK-MED ONCE .ROUTE ; Start 09/27/16 at 11:42; Stop 09/27/16 at 11:43; Status DC Famotidine (Pepcid) 20 mg STK-MED ONCE .ROUTE ; Start 09/27/16 at 11:42; Stop 09/27/16 at 11:43; Status DC Dexamethasone Sodium Phosphate (Decadron) 20 mg STK-MED ONCE .ROUTE ; Start 09/27 at 11:42; Stop 09/27/16 at 11:43; Status DC Propofol 20 ml @ As Directed STK-MED ONCE IV ; Start 09/27/16 at 11:42; Stop 09/27 at 11:43; Status DC Rocuronium [place] (Zemuron) 50 mg STK-MED ONCE .ROUTE ; Start 09/27/16 at 11:45 ; Stop 09/27/16 at 11:46; Status DC Fentanyl Citrate (Fentanyl 5ml Vial) 250 mcg STK-MED ONCE .ROUTE ; Start at 11:46; Stop 09/27/16 at 11:47; Status DC Cellulose 1 each STK-MED ONCE .ROUTE ; Start 09/27/16 at 12:04; Stop 09/27/16 at 12:05; Status DC Bupivacaine HCl (Marcaine 0.25%) 50 ml STK-MED ONCE .ROUTE ; Start 09/27/16 at 12 :04; Stop 09/27/16 at 12:05; Status DC Iohexol (Omnipaque 300 Mg/ml) 100 ml STK-MED ONCE .ROUTE ; Start 09/27/16 at 12: 05; Stop 09/27/16 at 12:06; Status DC Gelatin (Gelfoam Size 100) 1 each STK-MED ONCE .ROUTE ; Start 09/27/16 at 12:05 ; Stop 09/27/16 at 12:06; Status DC Papaverine HCl 60 mg STK-MED ONCE .ROUTE ; Start 09/27/16 at 12:05; Stop 09/27/16 at 12:06; Status DC Thrombin 20,000 unit STK-MED ONCE TP ; Start 09/27/16 at 12:05; Stop 09/27/16 at 12:06; Status DC Lidocaine HCl 1 ml STK-MED ONCE .ROUTE ; Start 09/27/16 at 12:35; Stop 09/27/16 at 12:36; Status DC Ringer's Solution 1,000 ml @ 75 mls/hr [id number] IV Last administered on 17:03; Start 09/27/16 at 13:30; Stop 09/28/16 at 12:44; Status DC Furosemide (Lasix) 40 mg STK-MED ONCE .ROUTE ; Start 09/27/16 at 13:34; Stop 09/27 at 13:35; Status DC Heparin Sodium (Porcine) (Heparin Sodium) 10,000 unit STK-MED ONCE .ROUTE ; Start 09/27/16 at 14:29; Stop 09/27/16 at 14:30; Status DC Glycopyrrolate (Robinul) 1 mg STK-MED ONCE .ROUTE ; Start 09/27/16 at 16:00; Stop 09/27/16 at 16:01; Status DC Neostigmine Methylsulfate 5 mg STK-MED ONCE .ROUTE ; Start 09/27/16 at 16:00; Stop 09/27/16 at 16:01; Status DC Desflurane (Suprane) 90 ml STK-MED ONCE IH ; Start 09/27/16 at 16:00; Stop at 16:01; Status DC Bacitracin 14 margie STK-MED ONCE TP Last administered on 09/27/16 16:12; Start at 16:14; Stop 09/27/16 at 16:15; Status DC Propofol 20 ml @ As Directed STK-MED ONCE IV ; Start 09/27/16 at 16:28; Stop 09/27 at 16:29; Status DC Fentanyl Citrate (Fentanyl 2ml Vial) 25 mcg PRN Q5MIN PRN IV Acute Pain; Start 09/27/16 at 16:45; Stop 09/28/16 at 16:44 Fentanyl Citrate (Fentanyl 2ml Vial) 50 mcg PRN Q5MIN PRN IV Acute Pain Last administered on 09/27/16 17:21; Start 09/27/16 at 16:45; Stop 09/28/16 at 16:44 Morphine Sulfate 2 mg PRN Q10MIN PRN IV Mild Pain Last administered on 17:00; Start 09/27/16 at 16:45; Stop 09/28/16 at 16:44 Hydromorphone HCl (Dilaudid) 0.5 mg PRN Q10MIN PRN IV Moderate to severe pain; Start 09/27/16 at 16:45; Stop 09/28/16 at 16:44 Ondansetron HCl (Zofran) 4 mg PRN Q6HRS PRN IV Nausea, 2nd Choice; Start at 16:45; Stop 09/28/16 at 16:44 Prochlorperazine Edisylate (Compazine) 5 mg PRN Q6HRS PRN IV Nausea/Vomiting, 2nd Choice; Start 09/27/16 at 16:45; Stop 09/28/16 at 16:44 Haloperidol Lactate (Haldol) 5 mg STK-MED ONCE .ROUTE ; Start 09/27/16 at 17:28; Stop 09/27/16 at 17:29; Status DC Haloperidol Lactate (Haldol) 2.5 mg 1X PACU PRN IVP AGITATION Last administered on 09/27/16 18:07; Start 09/27/16 at 17:30 Furosemide (Lasix) 80 mg 1X ONCE IVP Last administered on 09/28/16 11:19; Start 09/28/16 at 11:00; Stop 09/28/16 at 11:01; Status DC Active Scripts Active Levofloxacin 750 Mg Tablet 1 Tab PO DAILY Levemir Flextouch (Insulin Detemir) 100 Unit/1 Ml Insuln.pen 20 Units SQ QHS 30 Days Novolog Flexpen (Insulin Aspart) 100 Unit/1 Ml Insuln.pen 10 Units SQ TIDAC 30 Days Reported Percocet 5-325 Mg Tablet (Oxycodone/Acetaminophen) 1 Each Tablet 1 Tab PO PRN Q6HRS PRN Advair 100-50 Diskus (Fluticasone/Salmeterol) 1 Each Disk.w.dev 1 Puff IH BID Spiriva Respimat (Tiotropium [place]) 4 Gm Mist.inhal 2.5 Gm IH DAILY Symbicort 160-4.5 Mcg Inhaler (Budesonide/Formoterol Fumarate) 10.2 Gm Hfa.aer.ad 2 Puff IH BID Atorvastatin Calcium 20 Mg Tablet 20 Mg PO HS Lisinopril-Hctz 10-12.5 Mg Tab (Lisinopril/Hydrochlorothiazide) 1 Each Tablet 1 Tab PO DAILY Isosorbide Mononitrate Er (Isosorbide Mononitrate) 120 Mg Tab.er.24h 120 Mg PO DAILY Novolin N (Nph, Human Insulin Isophane) 100 Unit/1 Ml Vial 0 SQ Promethazine-Codeine Syrup (Promethazine Hcl/Codeine) 118 Ml Syrup 5 Ml PO Q4- 6HRS Diltiazem 24HR Cd (Diltiazem Hcl) 240 Mg Cap.er.24h 240 Mg PO DAILY NITROGLYCERIN SubLingual (Nitroglycerin) 0.4 Mg Tab.subl 0.4 Mg SL PRN Q5MIN PRN Atorvastatin Calcium 40 Mg Tablet 40 Mg PO HS Vitals/I & O Vital Sign - Last 24 Hours 09/27/16 09/27/16 09/27/16 09/27/16 16:31 16:35 16:45 16:50 Temp 97.1 97.1 Pulse 106 100 Resp 22 22 B/P (MAP) 166/66 182/88 Pulse Ox 84 91 93 O2 Delivery Mask Room Air Simple Mask O2 Flow Rate 10 10 10 09/27/16 09/27/16 09/27/16 09/27/16 17:00 17:05 17:20 17:21 Pulse 97 94 Resp 22 22 20 20 B/P (MAP) 163/87 156/79 Pulse Ox 95 82 90 85 O2 Delivery Nasal Cannula Room Air Room Air Room Air O2 Flow Rate 2.0 6/5/17 6/5/17 6/5/17 6/5/17 17:35 17:50 18:05 18:30 Temp 98.0 98.0 Pulse 94 92 100 Resp 20 20 20 B/P (MAP) 153/99 156/85 171/95 Pulse Ox 96 93 99 O2 Delivery Nasal Cannula Nasal Cannula Nasal Cannula Nasal Cannula O2 Flow Rate 4 5 5 5.0 09/27/16 09/27/16 09/27/16 09/27/16 18:39 18:46 19:01 19:15 Pulse 94 94 99 95 Resp 20 B/P (MAP) 168/97 (120) 190/99 (129) 155/90 (111) 185/101 (129) Pulse Ox 97 100 O2 Delivery Nasal Cannula 09/27/16 09/27/16 09/27/16 09/27/16 19:31 19:34 19:45 20:20 Pulse 97 96 B/P (MAP) 182/101 (128) 176/98 (124) Pulse Ox 81 81 O2 Delivery Room Air Room Air 09/27/16 09/27/16 09/27/16 09/27/16 20:30 20:50 21:20 21:27 Pulse 98 99 97 B/P (MAP) 187/98 (127) 166/89 (114) 166/89 O2 Delivery Nasal Cannula O2 Flow Rate 5.0 09/27/16 09/27/16 09/27/16 09/27/16 21:27 21:50 22:20 22:49 Temp 98.7 98.7 Pulse 97 97 94 95 Resp 17 B/P (MAP) 166/89 169/82 (111) 166/86 (112) 166/86 (112) Pulse Ox 96 O2 Delivery Nasal Cannula 09/27/16 09/28/16 09/28/16 09/28/16 22:50 03:08 03:55 05:48 Temp 98.7 98.7 Pulse 96 88 85 Resp 17 B/P (MAP) 153/82 (105) 158/103 (121) 158/103 Pulse Ox 94 100 100 O2 Delivery Nasal Cannula Nasal Cannula O2 Flow Rate 3.0 5.0 09/28/16 09/28/16 09/28/16 09/28/16 07:00 08:00 09:06 09:06 Temp 98.0 98.0 Pulse 75 81 Resp 23 B/P (MAP) 146/86 (106) 146/86 Pulse Ox 97 O2 Delivery Nasal Cannula Nasal Cannula O2 Flow Rate 2.0 09/28/16 09/28/16 09/28/16 09/28/16 09:07 10:07 10:49 11:32 Temp 98.0 98.0 Pulse 80 Resp 20 B/P (MAP) 144/79 (100) Pulse Ox 2 98 98 O2 Delivery Nasal Cannula Nasal Cannula Nasal Cannula Nasal Cannula O2 Flow Rate 2.0 1.0 Intake and Output 09/27/16 09/27/16 09/28/16 15:00 23:00 07:00 Intake Total 379 ml 1000 ml 340 ml Output Total 1450 ml Balance 379 ml -450 ml 340 ml BALA BRYANT MD Sep 28, 2016 13:47
--- NOTE | 2016-09-28 13:55 | PDOC ---
Provider Note Provider Note AF VSS awake and alert right leg incisions intact, palpable graft pulse, no erythema, right heel ulcer with necrotic tissue, right toe ulcers A/P: POD #1 right pop-DP bypass with GSV - plan right foot debrid on - plavix daily - PT/OT - medical management RODRIGUE METCALF MD Sep 28, 2016 13:55
[2016-09-28 15:01] VITALS: BP 149/79
[2016-09-28 19:18] VITALS: BP 148/73
[2016-09-28] MEDS: ATORVASTATIN CALCIUM 40 MG TABLET. PO SCH (21:05)
[2016-09-28] MEDS: INSULIN DETEMIR 300 UNITS/3 ML INSULN.PEN. SQ SCH (21:07)
[2016-09-28 22:36] VITALS: BP 134/68
--- NOTE | 2016-09-28 23:49 | PDOC ---
Provider Note Provider Note RENAL F/U : KIRIT S : No new issues. O : VSS Afebrile. Neck : Supple Lungs : Non labored. CVS : RRR Abd : Benign in appearance, without distention. Ext : 1+ edema Neuro : Awake. Labs reviewed. A/P : ARF/ATN HTN w CKD III EDEMA CHF. Diuresing well after 80 mg LASIX. Labs. CPM. DENIS BETH MD Sep 28, 2016 23:49
[2016-09-29] MEDS ORDERED: IPRATRPIUM/ALBUTEROL 0.5/2.5MG 3 ML NEBU. NEB ONE
[2016-09-29 03:00] VITALS: BP 160/91
[2016-09-29 06:36] LABS: ALBUMIN 2.4 g/dL (3.4-5.0); CALCIUM 8.8 mg/dL (8.5-10.1); CREATININE 2.8 mg/dL (0.7-1.3); GFR 26.9; PHOSPHORUS 5.2 mg/dL (2.6-4.7); POTASSIUM 4.3 mmol/L (3.5-5.1)
[2016-09-29 07:00] VITALS: BP 166/92
[2016-09-29] MEDS: INSULIN ASPART 300 UNITS/3 ML INSULN.PEN SQ SCH ×3 (08:00→18:35)
[2016-09-29] MEDS: BUDESONIDE 0.5 MG/2 ML NEBU. NEB SCH ×2 (08:18→19:32)
[2016-09-29] MEDS: IPRATRPIUM/ALBUTEROL 0.5/2.5MG 3 ML NEBU. NEB SCH ×4 (08:18→19:32)
--- NOTE | 2016-09-29 09:18 | PDOC ---
PULMONARY PROGRESS NOTES Subjective PT NOT MORE SOA Vitals Vital Signs Date Time Temp Pulse Resp B/P (MAP) Pulse Ox O2 Delivery O2 Flow Rate FiO2 09/29/16 08:25 Nasal Cannula 1.0 09/29/16 07:00 97.2 76 22 166/92 (116) 97 97.2 ROS: No Nausea, No Chest Pain, No Abdominal Pain, No Increase Cough General: Alert, No acute distress HEENT: Other Lungs: Clear, Other (bl decreased bs) Cardiovascular: S1, S2 Abdomen: Soft, Non-tender, Other Extremities: Other Labs Laboratory Tests Test 09/27/16 12:02 09/27/16 16:40 09/27/16 16:43 09/27/16 17:10 Glucose (Fingerstick) 103 mg/dL (70-99) 115 mg/dL (70-99) White Blood Count 13.3 x10^3/uL (4.0-11.0) Red Blood Count 3.30 x10^6/uL (4.30-5.70) Hemoglobin 9.6 g/dL (13.0-17.5) Hematocrit 29.7 % (39.0-53.0) Mean Corpuscular Volume 90 fL (79-100) Mean Corpuscular Hemoglobin 29 pg (25-35) Mean Corpuscular Hemoglobin Concent 32 g/dL (31-37) Red Cell Distribution Width 16.1 % (11.5-14.5) Platelet Count 332 x10^3/uL (140-400) Neutrophils (%) (Auto) 73 % (31-73) Lymphocytes (%) (Auto) 23 % (24-48) Monocytes (%) (Auto) 3 % (0-9) Eosinophils (%) (Auto) 1 % (0-3) Basophils (%) (Auto) 0 % (0-3) Neutrophils # (Auto) 9.7 x10^3uL (1.8-7.7) Lymphocytes # (Auto) 3.1 x10^3/uL (1.0-4.8) Monocytes # (Auto) 0.4 x10^3/uL (0.0-1.1) Eosinophils # (Auto) 0.1 x10^3/uL (0.0-0.7) Basophils # (Auto) 0.1 x10^3/uL (0.0-0.2) Sodium Level 137 mmol/L (136-145) Potassium Level 4.8 mmol/L (3.5-5.1) Chloride Level 101 mmol/L (98-107) Carbon Dioxide Level 23 mmol/L (21-32) Anion Gap 13 (6-14) Blood Urea Nitrogen 45 mg/dL (8-26) Creatinine 2.5 mg/dL (0.7-1.3) Estimated GFR (Cockcroft-Gault) 30.7 Glucose Level 151 mg/dL (70-99) Calcium Level 8.5 mg/dL (8.5-10.1) Magnesium Level 2.3 mg/dL (1.8-2.4) O2 Saturation 76 % (92-99) Arterial Blood pH 7.35 (7.35-7.45) Arterial Blood pCO2 at Patient Temp 39 mmHg (35-46) Arterial Blood pO2 at Patient Temp 46 mmHg (65-108) Arterial Blood HCO3 21 mmol/L (21-28) Arterial Blood Base Excess -4 mmol/L (-3-3) FiO2 21 Test 09/27/16 20:26 09/28/16 04:00 09/28/16 07:43 09/28/16 12:05 Glucose (Fingerstick) 120 mg/dL (70-99) 127 mg/dL (70-99) 238 mg/dL (70-99) White Blood Count 8.3 x10^3/uL (4.0-11.0) Red Blood Count 3.02 x10^6/uL (4.30-5.70) Hemoglobin 8.7 g/dL (13.0-17.5) Hematocrit 26.4 % (39.0-53.0) Mean Corpuscular Volume 87 fL (79-100) Mean Corpuscular Hemoglobin 29 pg (25-35) Mean Corpuscular Hemoglobin Concent 33 g/dL (31-37) Red Cell Distribution Width 16.3 % (11.5-14.5) Platelet Count 308 x10^3/uL (140-400) Neutrophils (%) (Auto) 79 % (31-73) Lymphocytes (%) (Auto) 11 % (24-48) Monocytes (%) (Auto) 9 % (0-9) Eosinophils (%) (Auto) 0 % (0-3) Basophils (%) (Auto) 0 % (0-3) Neutrophils # (Auto) 6.6 x10^3uL (1.8-7.7) Lymphocytes # (Auto) 0.9 x10^3/uL (1.0-4.8) Monocytes # (Auto) 0.7 x10^3/uL (0.0-1.1) Eosinophils # (Auto) 0.0 x10^3/uL (0.0-0.7) Basophils # (Auto) 0.0 x10^3/uL (0.0-0.2) Sodium Level 136 mmol/L (136-145) Potassium Level 5.2 mmol/L (3.5-5.1) Chloride Level 102 mmol/L (98-107) Carbon Dioxide Level 29 mmol/L (21-32) Anion Gap 5 (6-14) Blood Urea Nitrogen 53 mg/dL (8-26) Creatinine 2.6 mg/dL (0.7-1.3) Estimated GFR (Cockcroft-Gault) 29.3 Glucose Level 166 mg/dL (70-99) Calcium Level 8.5 mg/dL (8.5-10.1) Phosphorus Level 5.0 mg/dL (2.6-4.7) Magnesium Level 2.1 mg/dL (1.8-2.4) Creatine Kinase 47 U/L (39-308) Albumin 2.3 g/dL (3.4-5.0) Test 09/28/16 17:15 09/28/16 21:04 09/29/16 06:05 09/29/16 07:46 Glucose (Fingerstick) 135 mg/dL (70-99) 253 mg/dL (70-99) 137 mg/dL (70-99) Sodium Level 137 mmol/L (136-145) Potassium Level 4.3 mmol/L (3.5-5.1) Chloride Level 102 mmol/L (98-107) Carbon Dioxide Level 29 mmol/L (21-32) Anion Gap 6 (6-14) Blood Urea Nitrogen 57 mg/dL (8-26) Creatinine 2.8 mg/dL (0.7-1.3) Estimated GFR (Cockcroft-Gault) 26.9 Glucose Level 141 mg/dL (70-99) Calcium Level 8.8 mg/dL (8.5-10.1) Phosphorus Level 5.2 mg/dL (2.6-4.7) Creatine Kinase 40 U/L (39-308) Albumin 2.4 g/dL (3.4-5.0) Laboratory Tests Test 09/28/16 12:05 09/28/16 17:15 09/28/16 21:04 09/29/16 06:05 Glucose (Fingerstick) 238 mg/dL (70-99) 135 mg/dL (70-99) 253 mg/dL (70-99) Sodium Level 137 mmol/L (136-145) Potassium Level 4.3 mmol/L (3.5-5.1) Chloride Level 102 mmol/L (98-107) Carbon Dioxide Level 29 mmol/L (21-32) Anion Gap 6 (6-14) Blood Urea Nitrogen 57 mg/dL (8-26) Creatinine 2.8 mg/dL (0.7-1.3) Estimated GFR (Cockcroft-Gault) 26.9 Glucose Level 141 mg/dL (70-99) Calcium Level 8.8 mg/dL (8.5-10.1) Phosphorus Level 5.2 mg/dL (2.6-4.7) Creatine Kinase 40 U/L (39-308) Albumin 2.4 g/dL (3.4-5.0) Test 09/29/16 07:46 Glucose (Fingerstick) 137 mg/dL (70-99) Medications Active Scripts Medications Dose Route/Sig Max Daily Dose Days Date Category Levofloxacin 750 Mg Tablet 1 Tab PO DAILY 09/21/16 Rx Percocet 5-325 Mg Tablet (Oxycodone/Acetaminophen) 1 Each Tablet 1 Tab PO PRN Q6HRS PRN 07/30/16 Reported Advair 100-50 Diskus (Fluticasone/Salmeterol) 1 Each Disk.w.dev 1 Puff IH BID 06/21/16 Reported Spiriva Respimat (Tiotropium Bynum) 4 Gm Mist.inhal 2.5 Gm IH DAILY 06/21/16 Reported Symbicort 160-4.5 Mcg Inhaler (Budesonide/Formoterol Fumarate) 10.2 Gm Hfa.aer.ad 2 Puff IH BID 06/21/16 Reported Atorvastatin Calcium 20 Mg Tablet 20 Mg PO HS 06/21/16 Reported Lisinopril-Hctz 10-12.5 Mg Tab (Lisinopril/Hydrochlorothiazide) 1 Each Tablet 1 Tab PO DAILY 06/21/16 Reported Isosorbide Mononitrate Er (Isosorbide Mononitrate) 120 Mg Tab.er.24h 120 Mg PO DAILY 06/21/16 Reported Levemir Flextouch (Insulin Detemir) 100 Unit/1 Ml Insuln.pen 20 Units SQ QHS 30 11/24/15 Rx Novolog Flexpen (Insulin Aspart) 100 Unit/1 Ml Insuln.pen 10 Units SQ TIDAC 30 11/24/15 Rx Novolin N (Nph, Human Insulin Isophane) 100 Unit/1 Ml Vial 0 SQ 11/18/15 Reported Promethazine-Codeine Syrup (Promethazine Hcl/Codeine) 118 Ml Syrup 5 Ml PO Q4-6HRS 11/18/15 Reported Diltiazem 24HR Cd (Diltiazem Hcl) 240 Mg Cap.er.24h 240 Mg PO DAILY 11/18/15 Reported NITROGLYCERIN SubLingual (Nitroglycerin) 0.4 Mg Tab.subl 0.4 Mg SL PRN Q5MIN PRN 11/18/15 Reported Atorvastatin Calcium 40 Mg Tablet 40 Mg PO HS 11/18/15 Reported Impression . 1. Acute/Chronic resp failure multifactorial/COPD 2. Acute encephalopathy improved 3. History of extensive pulmonary embolism, resulting in shock in June. Status post treatment with anticoagulation Xarelto with last CT angiogram done on 2016 has shown resolution of pulmonary embolism.He is s/p IVC filter. 4. History of IVC filter placement in June. 5. 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 6. Abnormal CXR with mild CHF 7. renal failure, 8. Anemia 9. PVD Plan . follow surgery input PT/OT no halfway anticoagulation poor candidate DOUGIE RIVAS MD Sep 29, 2016 09:17
[2016-09-29] MEDS: BENZONATATE 100 MG CAPSULE. PO SCH ×3 (09:58→20:45)
[2016-09-29] MEDS: traMADol 50 MG TABLET PO PRN ×2 (09:59→18:28)
[2016-09-29] MEDS: CLOPIDOGREL BISULFATE 75 MG TABLET PO SCH (09:59)
[2016-09-29] MEDS: ISOSORBIDE MONONITRATE ER 30 MG TAB.ER.24H PO SCH (09:59)
[2016-09-29 11:00] VITALS: BP 153/72
--- NOTE | 2016-09-29 12:26 | PDOC ---
PROGRESS NOTES Chief Complaint Chief Complaint 1, Hypoglycemia with acute encephalopathy POA, resolved 2. 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 Mod PCM 4. High fall risk 5. CLaudication R>L 6. Gen weakness Old dx: 2. HX bilateral PE with cardiac arrest ([facility] 2016) sec to PE 3. CLean cardiac cath 4.Hx Non-occlusive thrombus, R leg (07/15) 5. COPD on home o2? exacerbation - wheezy 6. DM2; insulin requiring with HYPOGLYCEMIA 7. Hx Oliguric Hyperkalemic renal failure - stable 8 Dyslipidemia on statin 9. HX significant angioedema likely sec to ADAN inhib needing intubation (06/2016) History of Present Illness History of Present Illness s/p fem pop bypass R leg 09/27 - POD # 2 NOw they plan to heel debridement duyen LAbs ok BS ok Hgb 8 Collier in good UO HS of signif anemia in last admission - poor candidate for senior care AC (though needs it , PE and DVT) VS ok Pt ok Dw RN PLAN: CPM NPO post mN Heel debridement by vasc sx duyen Vitals Vitals Vital Signs Date Time Temp Pulse Resp B/P (MAP) Pulse Ox O2 Delivery O2 Flow Rate FiO2 09/29/16 11:00 97.6 83 22 153/72 (99) 94 Nasal Cannula 1.0 97.6 Physical Exam General: Other (Resting with NAD) Heart: Regular rate (Sinus tach), Normal S1, Normal S2, Other (3/6 systolic murmur to LLS border) Lungs: Clear, Other (bl decreased bs) Abdomen: Soft, No tenderness Extremities: No clubbing, No cyanosis, Other (dry gangrene right heel and spotty digital gangrene) Skin: No rashes Labs LABS Laboratory Tests Test 09/28/16 17:15 09/28/16 21:04 09/29/16 06:05 09/29/16 07:46 Glucose (Fingerstick) 135 mg/dL (70-99) 253 mg/dL (70-99) 137 mg/dL (70-99) Sodium Level 137 mmol/L (136-145) Potassium Level 4.3 mmol/L (3.5-5.1) Chloride Level 102 mmol/L (98-107) Carbon Dioxide Level 29 mmol/L (21-32) Anion Gap 6 (6-14) Blood Urea Nitrogen 57 mg/dL (8-26) Creatinine 2.8 mg/dL (0.7-1.3) Estimated GFR (Cockcroft-Gault) 26.9 Glucose Level 141 mg/dL (70-99) Calcium Level 8.8 mg/dL (8.5-10.1) Phosphorus Level 5.2 mg/dL (2.6-4.7) Creatine Kinase 40 U/L (39-308) Albumin 2.4 g/dL (3.4-5.0) Test 09/29/16 11:31 Glucose (Fingerstick) 213 mg/dL (70-99) Review of Systems Review of Systems denies 14 pt Assessment and Plan Assessmemt and Plan Problems Medical Problems: (1) Hypoglycemia Status: Acute Problems: Comment Review of Relevant I have reviewed the following items valerie (where applicable) has been applied. Labs Laboratory Tests Test 09/27/16 16:40 09/27/16 16:43 09/27/16 17:10 09/27/16 20:26 White Blood Count 13.3 x10^3/uL (4.0-11.0) Red Blood Count 3.30 x10^6/uL (4.30-5.70) Hemoglobin 9.6 g/dL (13.0-17.5) Hematocrit 29.7 % (39.0-53.0) Mean Corpuscular Volume 90 fL (79-100) Mean Corpuscular Hemoglobin 29 pg (25-35) Mean Corpuscular Hemoglobin Concent 32 g/dL (31-37) Red Cell Distribution Width 16.1 % (11.5-14.5) Platelet Count 332 x10^3/uL (140-400) Neutrophils (%) (Auto) 73 % (31-73) Lymphocytes (%) (Auto) 23 % (24-48) Monocytes (%) (Auto) 3 % (0-9) Eosinophils (%) (Auto) 1 % (0-3) Basophils (%) (Auto) 0 % (0-3) Neutrophils # (Auto) 9.7 x10^3uL (1.8-7.7) Lymphocytes # (Auto) 3.1 x10^3/uL (1.0-4.8) Monocytes # (Auto) 0.4 x10^3/uL (0.0-1.1) Eosinophils # (Auto) 0.1 x10^3/uL (0.0-0.7) Basophils # (Auto) 0.1 x10^3/uL (0.0-0.2) Sodium Level 137 mmol/L (136-145) Potassium Level 4.8 mmol/L (3.5-5.1) Chloride Level 101 mmol/L (98-107) Carbon Dioxide Level 23 mmol/L (21-32) Anion Gap 13 (6-14) Blood Urea Nitrogen 45 mg/dL (8-26) Creatinine 2.5 mg/dL (0.7-1.3) Estimated GFR (Cockcroft-Gault) 30.7 Glucose Level 151 mg/dL (70-99) Calcium Level 8.5 mg/dL (8.5-10.1) Magnesium Level 2.3 mg/dL (1.8-2.4) Glucose (Fingerstick) 115 mg/dL (70-99) 120 mg/dL (70-99) O2 Saturation 76 % (92-99) Arterial Blood pH 7.35 (7.35-7.45) Arterial Blood pCO2 at Patient Temp 39 mmHg (35-46) Arterial Blood pO2 at Patient Temp 46 mmHg (65-108) Arterial Blood HCO3 21 mmol/L (21-28) Arterial Blood Base Excess -4 mmol/L (-3-3) FiO2 21 Test 09/28/16 04:00 09/28/16 07:43 09/28/16 12:05 09/28/16 17:15 White Blood Count 8.3 x10^3/uL (4.0-11.0) Red Blood Count 3.02 x10^6/uL (4.30-5.70) Hemoglobin 8.7 g/dL (13.0-17.5) Hematocrit 26.4 % (39.0-53.0) Mean Corpuscular Volume 87 fL (79-100) Mean Corpuscular Hemoglobin 29 pg (25-35) Mean Corpuscular Hemoglobin Concent 33 g/dL (31-37) Red Cell Distribution Width 16.3 % (11.5-14.5) Platelet Count 308 x10^3/uL (140-400) Neutrophils (%) (Auto) 79 % (31-73) Lymphocytes (%) (Auto) 11 % (24-48) Monocytes (%) (Auto) 9 % (0-9) Eosinophils (%) (Auto) 0 % (0-3) Basophils (%) (Auto) 0 % (0-3) Neutrophils # (Auto) 6.6 x10^3uL (1.8-7.7) Lymphocytes # (Auto) 0.9 x10^3/uL (1.0-4.8) Monocytes # (Auto) 0.7 x10^3/uL (0.0-1.1) Eosinophils # (Auto) 0.0 x10^3/uL (0.0-0.7) Basophils # (Auto) 0.0 x10^3/uL (0.0-0.2) Sodium Level 136 mmol/L (136-145) Potassium Level 5.2 mmol/L (3.5-5.1) Chloride Level 102 mmol/L (98-107) Carbon Dioxide Level 29 mmol/L (21-32) Anion Gap 5 (6-14) Blood Urea Nitrogen 53 mg/dL (8-26) Creatinine 2.6 mg/dL (0.7-1.3) Estimated GFR (Cockcroft-Gault) 29.3 Glucose Level 166 mg/dL (70-99) Calcium Level 8.5 mg/dL (8.5-10.1) Phosphorus Level 5.0 mg/dL (2.6-4.7) Magnesium Level 2.1 mg/dL (1.8-2.4) Creatine Kinase 47 U/L (39-308) Albumin 2.3 g/dL (3.4-5.0) Glucose (Fingerstick) 127 mg/dL (70-99) 238 mg/dL (70-99) 135 mg/dL (70-99) Test 09/28/16 21:04 09/29/16 06:05 09/29/16 07:46 09/29/16 11:31 Glucose (Fingerstick) 253 mg/dL (70-99) 137 mg/dL (70-99) 213 mg/dL (70-99) Sodium Level 137 mmol/L (136-145) Potassium Level 4.3 mmol/L (3.5-5.1) Chloride Level 102 mmol/L (98-107) Carbon Dioxide Level 29 mmol/L (21-32) Anion Gap 6 (6-14) Blood Urea Nitrogen 57 mg/dL (8-26) Creatinine 2.8 mg/dL (0.7-1.3) Estimated GFR (Cockcroft-Gault) 26.9 Glucose Level 141 mg/dL (70-99) Calcium Level 8.8 mg/dL (8.5-10.1) Phosphorus Level 5.2 mg/dL (2.6-4.7) Creatine Kinase 40 U/L (39-308) Albumin 2.4 g/dL (3.4-5.0) Laboratory Tests Test 09/28/16 17:15 09/28/16 21:04 09/29/16 06:05 09/29/16 07:46 Glucose (Fingerstick) 135 mg/dL (70-99) 253 mg/dL (70-99) 137 mg/dL (70-99) Sodium Level 137 mmol/L (136-145) Potassium Level 4.3 mmol/L (3.5-5.1) Chloride Level 102 mmol/L (98-107) Carbon Dioxide Level 29 mmol/L (21-32) Anion Gap 6 (6-14) Blood Urea Nitrogen 57 mg/dL (8-26) Creatinine 2.8 mg/dL (0.7-1.3) Estimated GFR (Cockcroft-Gault) 26.9 Glucose Level 141 mg/dL (70-99) Calcium Level 8.8 mg/dL (8.5-10.1) Phosphorus Level 5.2 mg/dL (2.6-4.7) Creatine Kinase 40 U/L (39-308) Albumin 2.4 g/dL (3.4-5.0) Test 09/29/16 11:31 Glucose (Fingerstick) 213 mg/dL (70-99) Microbiology 09/22/16 Blood Culture - Final, Complete NO GROWTH AFTER 5 DAYS Medications Current Medications Dextrose (Dextrose 50%-Water Syringe) 25 gm STK-MED ONCE IV ; Start 09/22/16 at 10:39; Stop 09/22/16 at 10:40; Status DC Dextrose 500 ml @ 30 mls/hr 1X ONCE IV Last administered on 09/22/16t 11:52; Start 09/22/16 at 11:45; Stop 09/22/16 at 17:38; Status DC Dextrose (Dextrose 50%-Water Syringe) 25 gm STK-MED ONCE IV ; Start 09/22/16 at 11:45; Stop 09/22/16 at 11:46; Status DC Dextrose (Dextrose 50%-Water Syringe) 25 gm 1X ONCE IV Last administered on 10:45; Start 09/22/16 at 12:00; Stop 09/22/16 at 12:01; Status DC Dextrose (Dextrose 50%-Water Syringe) 25 gm 1X ONCE IV Last administered on 11:40; Start 09/22/16 at 12:00; Stop 09/22/16 at 12:01; Status DC Nitroglycerin (Nitrostat) 0.4 mg PRN Q5MIN PRN SL CHEST PAIN Last administered on 09/24/16 03:18; Start 09/22/16 at 12:00 Ondansetron HCl (Zofran) 4 mg PRN Q8HRS PRN IV NAUSEA/VOMITING; Start 09/22/16 at 12:30; Stop 09/23/16 at 12:29; Status DC Levofloxacin/ Dextrose (Levaquin Per Pharmacy) 1 each PRN DAILY PRN MC SEE COMMENTS; Start 09/22/16 at 12:45; Stop 09/25/16 at 15:18; Status DC Levofloxacin/ Dextrose 150 ml @ 100 mls/hr Q48H IV Last administered on 14:40; Start 09/22/16 at 13:00 Sodium Chloride 500 ml @ 1,000 mls/hr 1X ONCE IV Last administered on 13:10; Start 09/22/16 at 13:15; Stop 09/22/16 at 13:44; Status DC Dextrose (Dextrose 50%-Water Syringe) 25 gm 1X ONCE IV Last administered on 13:11; Start 09/22/16 at 13:15; Stop 09/22/16 at 13:16; Status DC Insulin Aspart (NovoLOG) 0-5 UNITS TIDWMEALS SQ Last administered on 09/22/16 18:17; Start 09/22/16 at 17:00; Stop 09/23/16 at 09:23; Status DC Dextrose (Dextrose 50%-Water Syringe) 12.5 gm PRN Q15MIN PRN IV SEE COMMENTS Last administered on 09/22/16 13:58; Start 09/22/16 at 14:00 Labetalol HCl (Normodyne) 20 mg PRN Q2HR PRN IVP HYPERTENSION, SEE COMMENTS Last administered on 09/28/16 03:55; Start 09/22/16 at 14:15 Amlodipine Besylate (Norvasc) 10 mg DAILY PO ; Start 09/23/16 at 09:00; Status UNV Atorvastatin Calcium (Lipitor) 40 mg HS PO Last administered on 09/28/16 21:05 ; Start 09/22/16 at 21:00 Diltiazem HCl (Cardizem 24hr Cd) 240 mg DAILY PO Last administered on 09/29/16 09:58; Start 09/22/16 at 15:00 Isosorbide Mononitrate (Imdur) 120 mg DAILY PO Last administered on 09/29/16 09 :59; Start 09/22/16 at 15:00 Albuterol/ Ipratropium (Duoneb) 3 ml STK-MED ONCE .ROUTE ; Start 09/22/16 at 15: 06; Stop 09/22/16 at 15:07; Status DC Albuterol/ Ipratropium (Duoneb) 3 ml RTQID NEB Last administered on 09/29/16 10 :41; Start 09/22/16 at 16:00 Budesonide (Pulmicort) 0.5 mg RTBID NEB Last administered on 09/29/16 08:18; Start 09/22/16 at 20:00 Magnesium Sulfate/ Dextrose 50 ml @ 25 mls/hr PRN DAILY PRN IV for Mag < 1.7 on am labs; Start 09/22/16 at 15:45 Sodium Chloride 1,000 ml @ 100 mls/hr Q10H IV Last administered on 09/23/16 01 :35; Start 09/22/16 at 15:45; Stop 09/23/16 at 07:45; Status DC Dextrose 1,000 ml @ 50 mls/hr Q20H IV Last administered on 09/22/16 17:39; Start 09/22/16 at 17:45; Stop 09/23/16 at 07:45; Status DC Insulin Aspart (NovoLOG) 0-9 UNITS TIDWMEALS SQ Last administered on 09/28/16 12:56; Start 09/23/16 at 12:00 Dextrose (Dextrose 50%-Water Syringe) 12.5 gm PRN Q15MIN PRN IV SEE COMMENTS; Start 09/23/16 at 09:30; Stop 09/23/16 at 12:56; Status DC Albuterol/ Ipratropium (Duoneb) 3 ml RTQID NEB ; Start 09/23/16 at 12:00; Stop at 12:56; Status DC Prednisone (Prednisone) 60 mg 1X ONCE PO Last administered on 09/23/16 10:00; Start 09/23/16 at 09:30; Stop 09/23/16 at 09:31; Status DC Benzonatate (Tessalon Perle) 100 mg [id number] PO Last administered on 09/29/16 09: 58; Start 09/23/16 at 09:30 Furosemide (Lasix) 20 mg 1X ONCE IVP Last administered on 09/23/16 17:30; Start 09/23/16 at 17:30; Stop 09/23/16 at 17:31; Status DC Furosemide (Lasix) 80 mg 1X ONCE IVP Last administered on 09/24/16 15:56; Start 09/24/16 at 11:00; Stop 09/24/16 at 11:03; Status DC Acetylcysteine (Mucomyst 20% Oral Solution) 1,200 mg BID PO Last administered on 09/26/16 08:51; Start 09/24/16 at 11:30; Stop 09/26/16 at 11:29; Status DC Darbepoetin Arsh (Aranesp) 60 mcg [id number] SQ Last administered on 09/24/16 20: 23; Start 09/24/16 at 21:00 Tramadol HCl (Ultram) 50 mg PRN Q6HRS PRN PO PAIN Last administered on 09:59; Start 09/24/16 at 11:30 Iohexol (Omnipaque 300 Mg/ml) 100 ml STK-MED ONCE .ROUTE ; Start 09/24/16 at 12: 12; Stop 09/24/16 at 12:13; Status DC Lidocaine/Sodium Bicarbonate (Buffered Lidocaine 1%) 20 ml STK-MED ONCE IJ ; Start 09/24/16 at 12:12; Stop 09/24/16 at 12:13; Status DC Midazolam HCl (Versed) 5 mg STK-MED ONCE .ROUTE ; Start 09/24/16 at 12:12; Stop 09/24/16 at 12:13; Status DC Fentanyl Citrate (Fentanyl 5ml Vial) 250 mcg STK-MED ONCE .ROUTE ; Start at 12:12; Stop 09/24/16 at 12:13; Status DC Heparin Sodium/ Sodium Chloride 2,000 ml @ As Directed STK-MED ONCE .ROUTE ; Start 09/24/16 at 12:13; Stop 09/24/16 at 12:14; Status DC Iodixanol (Visipaque 320) 100 ml STK-MED ONCE .ROUTE ; Start 09/24/16 at 12:13; Stop 09/24/16 at 12:14; Status DC Heparin Sodium (Porcine) (Heparin Sodium) 10,000 unit STK-MED ONCE .ROUTE ; Start 09/24/16 at 12:15; Stop 09/24/16 at 12:16; Status DC Insulin Detemir (Levemir) 10 units QHS SQ Last administered on 09/28/16 21:07; Start 09/24/16 at 21:00 Heparin Sodium/ Sodium Chloride 1,000 unit 1X ONCE IART Last administered on 14:52; Start 09/24/16 at 14:00; Stop 09/24/16 at 14:01; Status DC Lidocaine/Sodium Bicarbonate (Buffered Lidocaine 1%) 20 ml 1X ONCE IJ Last administered on 09/24/16 14:00; Start 09/24/16 at 14:00; Stop 09/24/16 at 14:01; Status DC Midazolam HCl (Versed) 5 mg 1X ONCE IV ; Start 09/24/16 at 14:00; Stop 09/24/16 at 14:01; Status DC Fentanyl Citrate (Fentanyl 5ml Vial) 250 mcg 1X ONCE IV ; Start 09/24/16 at 14: 00; Stop 09/24/16 at 14:01; Status DC Iohexol (Omnipaque 300 Mg/ml) 100 ml 1X ONCE IART Last administered on 14:51; Start 09/24/16 at 14:00; Stop 09/24/16 at 14:01; Status DC Iodixanol (Visipaque 320) 100 ml 1X ONCE IART Last administered on 09/24/16 14 :00; Start 09/24/16 at 14:00; Stop 09/24/16 at 14:01; Status DC Heparin Sodium (Porcine) (Heparin Sodium) 4,000 unit 1X ONCE IV Last administered on 09/24/16 14:00; Start 09/24/16 at 14:00; Stop 09/24/16 at 14:01; Status DC Info (Do NOT chart on this entry -- for MONITORING) 1 each PRN DAILY PRN MC SEE COMMENTS; Start 09/24/16 at 14:15; Stop 09/26/16 at 14:14; Status DC Clopidogrel Bisulfate (Plavix) 300 mg 1X ONCE PO Last administered on 16:01; Start 09/24/16 at 15:30; Stop 09/24/16 at 15:31; Status DC Clopidogrel Bisulfate (Plavix) 75 mg [id number] PO Last administered on 09:59; Start 09/25/16 at 08:00; Stop 10/25/16 at 08:00 Ringer's Solution 1,000 ml @ 100 mls/hr Q10H IV ; Start 09/27/16 at 00:01; Stop 09/27/16 at 00:01; Status DC Cefazolin Sodium/ Dextrose 50 ml @ 100 mls/hr 1X PREOP PRN IV SEE COMMENTS Last administered on 09/27/16 13:22; Start 09/27/16 at 06:00; Stop 09/27/16 at 18: 00; Status DC Heparin Sodium (Porcine) 5000 unit/Sodium Chloride 505 ml @ 505 mls/hr 1X PERIOP ONCE IRR Last administered on 09/27/16 13:36; Start 09/27/16 at 07:15; Stop 09/27/16 at 08:14; Status DC Cefazolin Sodium 1 gm/Sodium Chloride 500 ml @ 500 mls/hr 1X PERIOP ONCE IRR Last administered on 09/27/16 13:36; Start 09/27/16 at 07:15; Stop 09/27/16 at 08: 14; Status DC Furosemide (Lasix) 40 mg 1X ONCE IVP Last administered on 6/5/17at 13:20; Start 09/27/16 at 11:00; Stop 09/27/16 at 11:01; Status DC Lidocaine HCl (Lidocaine Pf 2% Vial) 5 ml STK-MED ONCE .ROUTE ; Start 09/27/16 at 11:42; Stop 09/27/16 at 11:43; Status DC Ondansetron HCl (Zofran) 4 mg STK-MED ONCE .ROUTE ; Start 09/27/16 at 11:42; Stop 09/27/16 at 11:43; Status DC Famotidine (Pepcid) 20 mg STK-MED ONCE .ROUTE ; Start 09/27/16 at 11:42; Stop 09/27/16 at 11:43; Status DC Dexamethasone Sodium Phosphate (Decadron) 20 mg STK-MED ONCE .ROUTE ; Start 09/27 at 11:42; Stop 09/27/16 at 11:43; Status DC Propofol 20 ml @ As Directed STK-MED ONCE IV ; Start 09/27/16 at 11:42; Stop 09/27 at 11:43; Status DC Rocuronium Bucoda (Zemuron) 50 mg STK-MED ONCE .ROUTE ; Start 09/27/16 at 11:45 ; Stop 09/27/16 at 11:46; Status DC Fentanyl Citrate (Fentanyl 5ml Vial) 250 mcg STK-MED ONCE .ROUTE ; Start at 11:46; Stop 09/27/16 at 11:47; Status DC Cellulose 1 each STK-MED ONCE .ROUTE ; Start 09/27/16 at 12:04; Stop 09/27/16 at 12:05; Status DC Bupivacaine HCl (Marcaine 0.25%) 50 ml STK-MED ONCE .ROUTE ; Start 09/27/16 at 12 :04; Stop 09/27/16 at 12:05; Status DC Iohexol (Omnipaque 300 Mg/ml) 100 ml STK-MED ONCE .ROUTE ; Start 09/27/16 at 12: 05; Stop 09/27/16 at 12:06; Status DC Gelatin (Gelfoam Size 100) 1 each STK-MED ONCE .ROUTE ; Start 09/27/16 at 12:05 ; Stop 09/27/16 at 12:06; Status DC Papaverine HCl 60 mg STK-MED ONCE .ROUTE ; Start 09/27/16 at 12:05; Stop 09/27/16 at 12:06; Status DC Thrombin 20,000 unit STK-MED ONCE TP ; Start 09/27/16 at 12:05; Stop 09/27/16 at 12:06; Status DC Lidocaine HCl 1 ml STK-MED ONCE .ROUTE ; Start 09/27/16 at 12:35; Stop 09/27/16 at 12:36; Status DC Ringer's Solution 1,000 ml @ 75 mls/hr [id number] IV Last administered on 17:03; Start 09/27/16 at 13:30; Stop 09/28/16 at 12:44; Status DC Furosemide (Lasix) 40 mg STK-MED ONCE .ROUTE ; Start 09/27/16 at 13:34; Stop 09/27 at 13:35; Status DC Heparin Sodium (Porcine) (Heparin Sodium) 10,000 unit STK-MED ONCE .ROUTE ; Start 09/27/16 at 14:29; Stop 09/27/16 at 14:30; Status DC Glycopyrrolate (Robinul) 1 mg STK-MED ONCE .ROUTE ; Start 09/27/16 at 16:00; Stop 09/27/16 at 16:01; Status DC Neostigmine Methylsulfate 5 mg STK-MED ONCE .ROUTE ; Start 09/27/16 at 16:00; Stop 09/27/16 at 16:01; Status DC Desflurane (Suprane) 90 ml STK-MED ONCE IH ; Start 09/27/16 at 16:00; Stop at 16:01; Status DC Bacitracin 14 margie STK-MED ONCE TP Last administered on 09/27/16t 16:12; Start at 16:14; Stop 09/27/16 at 16:15; Status DC Propofol 20 ml @ As Directed STK-MED ONCE IV ; Start 09/27/16 at 16:28; Stop 09/27 at 16:29; Status DC Fentanyl Citrate (Fentanyl 2ml Vial) 25 mcg PRN Q5MIN PRN IV Acute Pain; Start 09/27/16 at 16:45; Stop 09/28/16 at 16:44; Status DC Fentanyl Citrate (Fentanyl 2ml Vial) 50 mcg PRN Q5MIN PRN IV Acute Pain Last administered on 09/27/16 17:21; Start 09/27/16 at 16:45; Stop 09/28/16 at 16:44; Status DC Morphine Sulfate 2 mg PRN Q10MIN PRN IV Mild Pain Last administered on 17:00; Start 09/27/16 at 16:45; Stop 09/28/16 at 16:44; Status DC Hydromorphone HCl (Dilaudid) 0.5 mg PRN Q10MIN PRN IV Moderate to severe pain; Start 09/27/16 at 16:45; Stop 09/28/16 at 16:44; Status DC Ondansetron HCl (Zofran) 4 mg PRN Q6HRS PRN IV Nausea, 2nd Choice; Start at 16:45; Stop 09/28/16 at 16:44; Status DC Prochlorperazine Edisylate (Compazine) 5 mg PRN Q6HRS PRN IV Nausea/Vomiting, 2nd Choice; Start 09/27/16 at 16:45; Stop 09/28/16 at 16:44; Status DC Haloperidol Lactate (Haldol) 5 mg STK-MED ONCE .ROUTE ; Start 09/27/16 at 17:28; Stop 09/27/16 at 17:29; Status DC Haloperidol Lactate (Haldol) 2.5 mg 1X PACU PRN IVP AGITATION Last administered on 09/27/16 18:07; Start 09/27/16 at 17:30; Stop 09/28/16 at 15:58; Status DC Furosemide (Lasix) 80 mg 1X ONCE IVP Last administered on 09/28/16 11:19; Start 09/28/16 at 11:00; Stop 09/28/16 at 11:01; Status DC Cefazolin Sodium/ Dextrose 50 ml @ 100 mls/hr 1X PREOP PRN IV MANAGER PACKAGING FOR OR; Start 09/30/16 at 06:00; Stop 09/30/16 at 08:00 Albuterol/ Ipratropium (Duoneb) 3 ml 1X ONCE NEB Last administered on 00:07; Start 09/29/16 at 00:00; Stop 09/29/16 at 00:12; Status DC Fentanyl Citrate (Fentanyl 2ml Vial) 25 mcg PRN Q5MIN PRN IV MILD PAIN; Start 09/30/16 at 07:00; Stop 10/01/16 at 06:59 Fentanyl Citrate (Fentanyl 2ml Vial) 50 mcg PRN Q5MIN PRN IV MODERATE PAIN; Start 09/30/16 at 07:00; Stop 10/01/16 at 06:59 Morphine Sulfate 1 mg PRN Q10MIN PRN IV SEVERE PAIN; Start 09/30/16 at 07:00; Stop 10/01/16 at 06:59 Ringer's Solution 1,000 ml @ 0 mls/hr Q0M IV ; Start 09/30/16 at 07:00; Stop 09/30/16 at 18:59 Lidocaine HCl 2 ml PRN 1X PRN ID PRIOR TO IV START; Start 09/30/16 at 07:00; Stop 10/01/16 at 06:59 Hydromorphone HCl (Dilaudid) 0.5 mg PRN Q10MIN PRN IV SEV PAIN, Second choice; Start 09/30/16 at 07:00; Stop 10/01/16 at 06:59 Prochlorperazine Edisylate (Compazine) 5 mg PACU PRN PRN IV NAUSEA, MRX1; Start 09/30/16 at 07:00; Stop 10/01/16 at 06:59 Active Scripts Active Levofloxacin 750 Mg Tablet 1 Tab PO DAILY Levemir Flextouch (Insulin Detemir) 100 Unit/1 Ml Insuln.pen 20 Units SQ QHS 30 Days Novolog Flexpen (Insulin Aspart) 100 Unit/1 Ml Insuln.pen 10 Units SQ TIDAC 30 Days Reported Percocet 5-325 Mg Tablet (Oxycodone/Acetaminophen) 1 Each Tablet 1 Tab PO PRN Q6HRS PRN Advair 100-50 Diskus (Fluticasone/Salmeterol) 1 Each Disk.w.dev 1 Puff IH BID Spiriva Respimat (Tiotropium Bucoda) 4 Gm Mist.inhal 2.5 Gm IH DAILY Symbicort 160-4.5 Mcg Inhaler (Budesonide/Formoterol Fumarate) 10.2 Gm Hfa.aer.ad 2 Puff IH BID Atorvastatin Calcium 20 Mg Tablet 20 Mg PO HS Lisinopril-Hctz 10-12.5 Mg Tab (Lisinopril/Hydrochlorothiazide) 1 Each Tablet 1 Tab PO DAILY Isosorbide Mononitrate Er (Isosorbide Mononitrate) 120 Mg Tab.er.24h 120 Mg PO DAILY Novolin N (Nph, Human Insulin Isophane) 100 Unit/1 Ml Vial 0 SQ Promethazine-Codeine Syrup (Promethazine Hcl/Codeine) 118 Ml Syrup 5 Ml PO Q4- 6HRS Diltiazem 24HR Cd (Diltiazem Hcl) 240 Mg Cap.er.24h 240 Mg PO DAILY NITROGLYCERIN SubLingual (Nitroglycerin) 0.4 Mg Tab.subl 0.4 Mg SL PRN Q5MIN PRN Atorvastatin Calcium 40 Mg Tablet 40 Mg PO HS Vitals/I & O Vital Sign - Last 24 Hours 09/28/16 09/28/16 09/28/16 09/28/16 14:39 14:55 15:01 19:18 Temp 98.0 98.0 98.0 98.0 Pulse 78 75 Resp 25 18 B/P (MAP) 149/79 (102) 148/73 (98) Pulse Ox 93 100 O2 Delivery Nasal Cannula Room Air Room Air Nasal Cannula O2 Flow Rate 1.0 09/28/16 09/28/16 09/28/16 09/28/16 19:31 19:39 21:05 22:05 Pulse Ox 97 97 O2 Delivery Nasal Cannula Nasal Cannula Nasal Cannula O2 Flow Rate 1.0 1.0 3.0 1.0 09/28/16 09/29/16 09/29/16 09/29/16 22:36 00:06 03:00 07:00 Temp 98.1 98.3 97.2 98.1 98.3 97.2 Pulse 77 78 76 Resp 22 22 22 B/P (MAP) 134/68 (90) 160/91 (114) 166/92 (116) Pulse Ox 98 99 97 O2 Delivery Nasal Cannula Nasal Cannula Nasal Cannula Nasal Cannula O2 Flow Rate 1.0 1.0 1.0 1.0 09/29/16 09/29/16 09/29/16 09/29/16 08:00 08:20 08:25 09:58 Pulse 76 B/P (MAP) 166/92 O2 Delivery Nasal Cannula Nasal Cannula Nasal Cannula O2 Flow Rate 1.0 1.0 1.0 09/29/16 09/29/16 09/29/16 09/29/16 09:59 09:59 10:42 10:59 Pulse 76 Resp 18 18 B/P (MAP) 166/92 Pulse Ox 97 94 O2 Delivery Nasal Cannula Nasal Cannula Nasal Cannula O2 Flow Rate 1.0 1.0 09/29/16 11:00 Temp 97.6 97.6 Pulse 83 Resp 22 B/P (MAP) 153/72 (99) Pulse Ox 94 O2 Delivery Nasal Cannula O2 Flow Rate 1.0 Intake and Output 09/28/16 09/28/16 09/29/16 15:00 23:00 07:00 Intake Total 420 ml 200 ml Output Total 1000 ml 1200 ml Balance -580 ml -1000 ml BALA BRYANT MD Sep 29, 2016 12:26
[2016-09-29 15:00] VITALS: BP 170/84
--- NOTE | 2016-09-29 15:20 | PDOC ---
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 09/29/16 1520: CARDIO Progress Notes Date and Time Date of Service 09/29/2016 Time of Evaluation 1518 Subjective Subjective: No Chest Pain, No Palpitations, Other (surgical pain ) Vitals Vitals Vital Signs Date Time Temp Pulse Resp B/P (MAP) Pulse Ox O2 Delivery O2 Flow Rate FiO2 09/29/16 14:54 Nasal Cannula 1.0 09/29/16 11:00 97.6 83 22 153/72 (99) 94 97.6 Weight Weight [ ] Input and Output Intake and Output Intake and Output 09/29/16 07:00 Intake Total 620 ml Output Total 2200 ml Balance -1580 ml Intake Oral 620 ml Output Urine Total 2200 ml Laboratory Labs Laboratory Tests Test 09/28/16 17:15 09/28/16 21:04 09/29/16 06:05 09/29/16 07:46 Glucose (Fingerstick) 135 mg/dL (70-99) 253 mg/dL (70-99) 137 mg/dL (70-99) Sodium Level 137 mmol/L (136-145) Potassium Level 4.3 mmol/L (3.5-5.1) Chloride Level 102 mmol/L (98-107) Carbon Dioxide Level 29 mmol/L (21-32) Anion Gap 6 (6-14) Blood Urea Nitrogen 57 mg/dL (8-26) Creatinine 2.8 mg/dL (0.7-1.3) Estimated GFR (Cockcroft-Gault) 26.9 Glucose Level 141 mg/dL (70-99) Calcium Level 8.8 mg/dL (8.5-10.1) Phosphorus Level 5.2 mg/dL (2.6-4.7) Creatine Kinase 40 U/L (39-308) Albumin 2.4 g/dL (3.4-5.0) Test 09/29/16 11:31 Glucose (Fingerstick) 213 mg/dL (70-99) Microbiology Micro Microbiology 09/22/16 Blood Culture - Final, Complete NO GROWTH AFTER 5 DAYS Physical Exam HEENT: Neck Supple W Full Motion Chest: Symmetric LUNGS: Other (diminished bases with scattered fine crackles ) Heart: S1S2, RRR, murmurs (soft systolic murmur) Abdomen: Soft N/T Extremities: Other (1+ bilateral LE edema. DRSG intact to RLE ) Neurology: alert, follow commands Assessment Assessment 1. Acute on chronic diastolic CHF secondary to volume overload I < O; weight decreasing control BP 2. PAD s/p right popliteal to dorsalis pedis bypass; POD #2 per surgery 3. HTN\ poorly controlled today use prn labetalol control pain CLEO JUAREZ MD 09/29/16 2131: CARDIO Progress Notes Plan Plan Pt. seen and examined. Agree with above HISTOLOGIST note. No acute events. Cr mildly elevated. No further diuretics given this morning. Denies chest pain. Dyspnea is stable. on exam the lung bases have poor aeration normal s1 and s2. rle pulse intact. Meds reviewed. Cardizem and Imdur for BP. On plavix. On statin Continue same for now. After pain controlled, if he is still hypertensive, could consider addition of hydralazine. Will follow. TALA ENCISO APRN Sep 29, 2016 15:20 CLEO JUAREZ MD Sep 29, 2016 21:31
--- NOTE | 2016-09-29 18:11 | PDOC ---
Provider Note Provider Note RENAL F/U : KIRIT S : No new issues. O : VSS Afebrile. Neck : Supple Lungs : Non labored. CVS : RRR Abd : Benign in appearance, without distention. Ext : 1+ edema Neuro : Awake. Labs reviewed. A/P : ARF/ATN HTN w CKD III EDEMA CHF. Clinically appears fairly euvolemic Caution with diuresis. Labs stable. Encourage activity. CPM. DENIS BETH MD Sep 29, 2016 18:11
[2016-09-29 19:23] VITALS: BP 145/78
[2016-09-29] MEDS: ATORVASTATIN CALCIUM 40 MG TABLET. PO SCH (20:45)
[2016-09-29] MEDS: INSULIN DETEMIR 300 UNITS/3 ML INSULN.PEN. SQ SCH (20:50)
[2016-09-29 22:28] VITALS: BP 155/92
[2016-09-30] VITALS (14 sets, daily range): BP systolic 157–187; BP diastolic 76–109
[2016-09-30] MEDS: traMADol 50 MG TABLET PO PRN (01:12)
[2016-09-30 06:34] LABS: CALCIUM 8.6 mg/dL (8.5-10.1); CREATININE 2.2 mg/dL (0.7-1.3); GFR 35.6; POTASSIUM 4.1 mmol/L (3.5-5.1)
[2016-09-30] MEDS ORDERED: PROCHLORPERAZINE 10 MG/2 ML VIAL. IV PRN (07:00)
[2016-09-30] MEDS ORDERED: fentaNYL PF VIAL 100 MCG/2 ML VIAL IV PRN (07:00)
[2016-09-30] MEDS ORDERED: HYDROmorphone 2 MG/ML VIAL IV PRN (07:00)
[2016-09-30] MEDS ORDERED: LIDOCAINE 1% 1 ML SYRINGE. ID PRN (07:00)
[2016-09-30] MEDS ORDERED: IV RINGERS,LACTATED 1000ML 1,000 ML IV SCH (07:00)
[2016-09-30] MEDS ORDERED: MORPHINE SULFATE 2 MG/ML DISP.SYRIN. IV PRN (07:00)
[2016-09-30] MEDS: IPRATRPIUM/ALBUTEROL 0.5/2.5MG 3 ML NEBU. NEB SCH ×5 (07:05→19:35)
[2016-09-30] MEDS: BUDESONIDE 0.5 MG/2 ML NEBU. NEB SCH ×2 (07:06→19:35)
[2016-09-30] MEDS: INSULIN ASPART 300 UNITS/3 ML INSULN.PEN SQ SCH ×3 (08:00→17:00)
[2016-09-30] MEDS: CLOPIDOGREL BISULFATE 75 MG TABLET PO SCH (08:00)
[2016-09-30] MEDS: ISOSORBIDE MONONITRATE ER 30 MG TAB.ER.24H PO SCH (09:09)
[2016-09-30] MEDS: BENZONATATE 100 MG CAPSULE. PO SCH ×3 (09:09→21:32)
[2016-09-30] MEDS ORDERED: MIDAZOLAM HCL/PF 2 MG/2 ML VIAL. ONE (11:45)
[2016-09-30] MEDS ORDERED: fentaNYL PF VIAL 100 MCG/2 ML VIAL ONE (11:45)
[2016-09-30] MEDS ORDERED: LIDOCAINE 2% PF Vial for OR 5 ML VIAL. ONE (11:46)
[2016-09-30] MEDS ORDERED: ONDANSETRON PF 4 MG/2 ML VIAL. ONE (11:46)
[2016-09-30] MEDS ORDERED: PROPOFOL 20 ML IV ONE (11:46)
[2016-09-30] MEDS ORDERED: DEXAMETHASONE SOD PHOS 20 MG/5 ML VIAL. ONE (11:46)
[2016-09-30] MEDS ORDERED: silver sulfADIAZINE 1% CREAM 25GM TUBE. TP ONE (13:37)
[2016-09-30] MEDS ORDERED: DEXTROSE 50% 25 GM / 50ML DISP.SYRIN. IV ONE (14:00)
[2016-09-30] MEDS: LIDOCAINE 1% PF 48 ML, SODIUM BICARBONATE VIAL 12 MEQ in TOTAL VOLUME SYRINGE 60 ML ID ONE ×2 (14:02→14:54)
--- NOTE | 2016-09-30 14:54 | PDOC ---
PULMONARY PROGRESS NOTES Subjective PT NOT MORE SOA Vitals Vital Signs Date Time Temp Pulse Resp B/P (MAP) Pulse Ox O2 Delivery O2 Flow Rate FiO2 09/30/16 13:30 98.9 79 16 150/73 93 Nasal Cannula 2 98.9 ROS: No Nausea, No Chest Pain, No Abdominal Pain, No Increase Cough General: Alert, No acute distress HEENT: Other Lungs: Clear, Other (bl decreased bs) Cardiovascular: S1, S2 Abdomen: Soft, Non-tender, Other Extremities: Other Labs Laboratory Tests Test 09/28/16 17:15 09/28/16 21:04 09/29/16 06:05 09/29/16 07:46 Glucose (Fingerstick) 135 mg/dL (70-99) 253 mg/dL (70-99) 137 mg/dL (70-99) Sodium Level 137 mmol/L (136-145) Potassium Level 4.3 mmol/L (3.5-5.1) Chloride Level 102 mmol/L (98-107) Carbon Dioxide Level 29 mmol/L (21-32) Anion Gap 6 (6-14) Blood Urea Nitrogen 57 mg/dL (8-26) Creatinine 2.8 mg/dL (0.7-1.3) Estimated GFR (Cockcroft-Gault) 26.9 Glucose Level 141 mg/dL (70-99) Calcium Level 8.8 mg/dL (8.5-10.1) Phosphorus Level 5.2 mg/dL (2.6-4.7) Creatine Kinase 40 U/L (39-308) Albumin 2.4 g/dL (3.4-5.0) Test 09/29/16 11:31 09/29/16 17:06 09/29/16 20:39 09/30/16 06:00 Glucose (Fingerstick) 213 mg/dL (70-99) 189 mg/dL (70-99) 159 mg/dL (70-99) Sodium Level 139 mmol/L (136-145) Potassium Level 4.1 mmol/L (3.5-5.1) Chloride Level 103 mmol/L (98-107) Carbon Dioxide Level 30 mmol/L (21-32) Anion Gap 6 (6-14) Blood Urea Nitrogen 52 mg/dL (8-26) Creatinine 2.2 mg/dL (0.7-1.3) Estimated GFR (Cockcroft-Gault) 35.6 Glucose Level 101 mg/dL (70-99) Calcium Level 8.6 mg/dL (8.5-10.1) Test 09/30/16 08:26 09/30/16 11:32 09/30/16 13:41 09/30/16 14:27 Glucose (Fingerstick) 97 mg/dL (70-99) 96 mg/dL (70-99) 74 mg/dL (70-99) 107 mg/dL (70-99) Laboratory Tests Test 09/29/16 17:06 09/29/16 20:39 09/30/16 06:00 09/30/16 08:26 Glucose (Fingerstick) 189 mg/dL (70-99) 159 mg/dL (70-99) 97 mg/dL (70-99) Sodium Level 139 mmol/L (136-145) Potassium Level 4.1 mmol/L (3.5-5.1) Chloride Level 103 mmol/L (98-107) Carbon Dioxide Level 30 mmol/L (21-32) Anion Gap 6 (6-14) Blood Urea Nitrogen 52 mg/dL (8-26) Creatinine 2.2 mg/dL (0.7-1.3) Estimated GFR (Cockcroft-Gault) 35.6 Glucose Level 101 mg/dL (70-99) Calcium Level 8.6 mg/dL (8.5-10.1) Test 09/30/16 11:32 09/30/16 13:41 09/30/16 14:27 Glucose (Fingerstick) 96 mg/dL (70-99) 74 mg/dL (70-99) 107 mg/dL (70-99) Medications Active Scripts Medications Dose Route/Sig Max Daily Dose Days Date Category Levofloxacin 750 Mg Tablet 1 Tab PO DAILY 09/21/16 Rx Percocet 5-325 Mg Tablet (Oxycodone/Acetaminophen) 1 Each Tablet 1 Tab PO PRN Q6HRS PRN 07/30/16 Reported Advair 100-50 Diskus (Fluticasone/Salmeterol) 1 Each Disk.w.dev 1 Puff IH BID 06/21/16 Reported Spiriva Respimat (Tiotropium [place]) 4 Gm Mist.inhal 2.5 Gm IH DAILY 06/21/16 Reported Symbicort 160-4.5 Mcg Inhaler (Budesonide/Formoterol Fumarate) 10.2 Gm Hfa.aer.ad 2 Puff IH BID 06/21/16 Reported Atorvastatin Calcium 20 Mg Tablet 20 Mg PO HS 06/21/16 Reported Lisinopril-Hctz 10-12.5 Mg Tab (Lisinopril/Hydrochlorothiazide) 1 Each Tablet 1 Tab PO DAILY 06/21/16 Reported Isosorbide Mononitrate Er (Isosorbide Mononitrate) 120 Mg Tab.er.24h 120 Mg PO DAILY 06/21/16 Reported Levemir Flextouch (Insulin Detemir) 100 Unit/1 Ml Insuln.pen 20 Units SQ QHS 30 11/24/15 Rx Novolog Flexpen (Insulin Aspart) 100 Unit/1 Ml Insuln.pen 10 Units SQ TIDAC 30 11/24/15 Rx Novolin N (Nph, Human Insulin Isophane) 100 Unit/1 Ml Vial 0 SQ 11/18/15 Reported Promethazine-Codeine Syrup (Promethazine Hcl/Codeine) 118 Ml Syrup 5 Ml PO Q4-6HRS 11/18/15 Reported Diltiazem 24HR Cd (Diltiazem Hcl) 240 Mg Cap.er.24h 240 Mg PO DAILY 11/18/15 Reported NITROGLYCERIN SubLingual (Nitroglycerin) 0.4 Mg Tab.subl 0.4 Mg SL PRN Q5MIN PRN 11/18/15 Reported Atorvastatin Calcium 40 Mg Tablet 40 Mg PO HS 11/18/15 Reported Impression . 1. Acute/Chronic resp failure multifactorial/COPD 2. Acute encephalopathy improved 3. History of extensive pulmonary embolism, resulting in shock in June. Status post treatment with anticoagulation Xarelto with last CT angiogram done on 2016 has shown resolution of pulmonary embolism.He is s/p IVC filter. 4. History of IVC filter placement in June. 5. 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 6. Abnormal CXR with mild CHF 7. renal failure, 8. Anemia 9. PVD Plan . surgery today, resp status is compensated PT/OT no long term care pharmacist anticoagulation poor candidate DOUGIE RIVAS MD Sep 30, 2016 14:54
[2016-09-30] MEDS ORDERED: BACITRACIN TOPICAL OINT 14GM TUBE. TP ONE (15:06)
--- NOTE | 2016-09-30 15:37 | PDOC ---
VASCULAR BRIEF OPERATIVE NOTE Date: Sep 30, 2016 Pre-Op Diagnosis gangrene right heel and toes Post-Op Diagnosis same Procedure Performed debridement right heel partial toe amputation 1,2 5 Surgeon Danna Anesthesia Type: MAC, Local NICOLE WARREN MD Sep 30, 2016 15:37
[2016-09-30] MEDS: fentaNYL PF VIAL 100 MCG/2 ML VIAL IV PRN ×2 (15:59→16:19)
[2016-09-30] MEDS ORDERED: ALBUTEROL SULFATE 2.5 MG/3 ML NEBU. ONE (16:05)
[2016-09-30] MEDS: LABETALOL 20 MG/4 ML DISP.SYRIN. IVP PRN (16:25)
[2016-09-30] MEDS ORDERED: ALBUTEROL SULFATE 2.5 MG/3 ML NEBU. NEB ONE (16:30)
--- NOTE | 2016-09-30 21:14 | OP ---
DATE OF SURGERY: 09/30/2016 PREOPERATIVE DIAGNOSIS: Gangrene of multiple toes, right foot and pressure ulcer with eschar of the right heel. POSTOPERATIVE DIAGNOSIS: Gangrene of multiple toes, right foot and pressure ulcer with eschar of the right heel. PROCEDURE PERFORMED: Partial digit amputations of first, second and fifth toes and heel debridement, right heel. INDICATIONS: This is a 76-year-old diabetic male with severe peripheral vascular disease, who presented with gangrene of multiple toes and an eschar on his right heel. He has undergone an arteriographic evaluation, subsequent popliteal to dorsalis pedis artery bypass graft using ipsilateral greater saphenous vein. The patient did well from surgical intervention and maintained an excellent bypass graft pulse. He was brought to the operating room today for removal of gangrenous tissue. DESCRIPTION OF PROCEDURE: The patient was given intravenous sedation, prepped and draped in sterile fashion. Elliptical incisions were placed at the mid portion of the first toe, second toe and at the base of the fifth toe. Soft tissue divided sharply. Hemostasis achieved with electrocautery. Bone was transected and the proximal phalanx was debrided with a rongeur. Hemostasis achieved with electrocautery and these wounds were all closed with interrupted 3-0 nylon suture. Sterile dressings were applied. Attention was then directed to heel where the eschar was sharply excised with #10 blade. Hemostasis achieved here with electrocautery. There was excellent bleeding. The heel wound was dressed with moist ____ and covered with a compressive dressing. The patient did tolerate the procedure well and was moved from the operating room to recovery in satisfactory stable condition. NICOLE WARREN MD DR: GERMANIA/taylor JOB#: [id number] / [id number]
[2016-09-30] MEDS: ATORVASTATIN CALCIUM 40 MG TABLET. PO SCH (21:32)
[2016-09-30] MEDS: INSULIN DETEMIR 300 UNITS/3 ML INSULN.PEN. SQ SCH (21:36)
--- NOTE | 2016-09-30 22:29 | PDOC ---
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 wound care. HX bilateral PE with cardiac arrest ([facility] 2016) sec to PE COPD on home Oxygen DM2; insulin with HYPOGLYCEMIA Renal failure HTN not controlled : prn hydralazine, continue home medications. Diastolic hert failure: stable. Intractable pain : PRN iv morphine Prognosis guarded labs reviewed. History of Present Illness History of Present Illness pain 11/01, not controlled HTN not controlled. Vitals Vitals Vital Signs Date Time Temp Pulse Resp B/P (MAP) Pulse Ox O2 Delivery O2 Flow Rate FiO2 09/30/16 19:20 100 Nasal Cannula 4.0 09/30/16 19:15 98.4 74 22 160/78 (105) 98.4 Physical Exam General: Alert, Oriented X3, Other (Resting with NAD) Heart: Regular rate (Sinus tach), Normal S1, Normal S2, Other (3/6 systolic murmur to LLS border) Lungs: Clear, Other (bl decreased bs) Abdomen: Soft, No tenderness Extremities: No clubbing, No cyanosis, Other (dry gangrene right heel and spotty digital gangrene) Skin: No rashes Labs LABS Laboratory Tests Test 09/30/16 06:00 09/30/16 08:26 09/30/16 11:32 09/30/16 13:41 Sodium Level 139 mmol/L (136-145) Potassium Level 4.1 mmol/L (3.5-5.1) Chloride Level 103 mmol/L (98-107) Carbon Dioxide Level 30 mmol/L (21-32) Anion Gap 6 (6-14) Blood Urea Nitrogen 52 mg/dL (8-26) Creatinine 2.2 mg/dL (0.7-1.3) Estimated GFR (Cockcroft-Gault) 35.6 Glucose Level 101 mg/dL (70-99) Calcium Level 8.6 mg/dL (8.5-10.1) Glucose (Fingerstick) 97 mg/dL (70-99) 96 mg/dL (70-99) 74 mg/dL (70-99) Test 09/30/16 14:27 09/30/16 15:43 09/30/16 17:42 09/30/16 21:31 Glucose (Fingerstick) 107 mg/dL (70-99) 90 mg/dL (70-99) 84 mg/dL (70-99) 205 mg/dL (70-99) Assessment and Plan Assessmemt and Plan Problems Medical Problems: (1) Hypoglycemia Status: Acute Problems: Comment Review of Relevant I have reviewed the following items valerie (where applicable) has been applied. Labs Laboratory Tests Test 09/29/16 06:05 09/29/16 07:46 09/29/16 11:31 09/29/16 17:06 Sodium Level 137 mmol/L (136-145) Potassium Level 4.3 mmol/L (3.5-5.1) Chloride Level 102 mmol/L (98-107) Carbon Dioxide Level 29 mmol/L (21-32) Anion Gap 6 (6-14) Blood Urea Nitrogen 57 mg/dL (8-26) Creatinine 2.8 mg/dL (0.7-1.3) Estimated GFR (Cockcroft-Gault) 26.9 Glucose Level 141 mg/dL (70-99) Calcium Level 8.8 mg/dL (8.5-10.1) Phosphorus Level 5.2 mg/dL (2.6-4.7) Creatine Kinase 40 U/L (39-308) Albumin 2.4 g/dL (3.4-5.0) Glucose (Fingerstick) 137 mg/dL (70-99) 213 mg/dL (70-99) 189 mg/dL (70-99) Test 09/29/16 20:39 09/30/16 06:00 09/30/16 08:26 09/30/16 11:32 Glucose (Fingerstick) 159 mg/dL (70-99) 97 mg/dL (70-99) 96 mg/dL (70-99) Sodium Level 139 mmol/L (136-145) Potassium Level 4.1 mmol/L (3.5-5.1) Chloride Level 103 mmol/L (98-107) Carbon Dioxide Level 30 mmol/L (21-32) Anion Gap 6 (6-14) Blood Urea Nitrogen 52 mg/dL (8-26) Creatinine 2.2 mg/dL (0.7-1.3) Estimated GFR (Cockcroft-Gault) 35.6 Glucose Level 101 mg/dL (70-99) Calcium Level 8.6 mg/dL (8.5-10.1) Test 09/30/16 13:41 09/30/16 14:27 09/30/16 15:43 09/30/16 17:42 Glucose (Fingerstick) 74 mg/dL (70-99) 107 mg/dL (70-99) 90 mg/dL (70-99) 84 mg/dL (70-99) Test 09/30/16 21:31 Glucose (Fingerstick) 205 mg/dL (70-99) Laboratory Tests Test 09/30/16 06:00 09/30/16 08:26 09/30/16 11:32 09/30/16 13:41 Sodium Level 139 mmol/L (136-145) Potassium Level 4.1 mmol/L (3.5-5.1) Chloride Level 103 mmol/L (98-107) Carbon Dioxide Level 30 mmol/L (21-32) Anion Gap 6 (6-14) Blood Urea Nitrogen 52 mg/dL (8-26) Creatinine 2.2 mg/dL (0.7-1.3) Estimated GFR (Cockcroft-Gault) 35.6 Glucose Level 101 mg/dL (70-99) Calcium Level 8.6 mg/dL (8.5-10.1) Glucose (Fingerstick) 97 mg/dL (70-99) 96 mg/dL (70-99) 74 mg/dL (70-99) Test 09/30/16 14:27 09/30/16 15:43 09/30/16 17:42 09/30/16 21:31 Glucose (Fingerstick) 107 mg/dL (70-99) 90 mg/dL (70-99) 84 mg/dL (70-99) 205 mg/dL (70-99) Microbiology 09/22/16 Blood Culture - Final, Complete NO GROWTH AFTER 5 DAYS Medications Current Medications Dextrose (Dextrose 50%-Water Syringe) 25 gm STK-MED ONCE IV ; Start 09/22/16 at 10:39; Stop 09/22/16 at 10:40; Status DC Dextrose 500 ml @ 30 mls/hr 1X ONCE IV Last administered on 09/22/16 11:52; Start 09/22/16 at 11:45; Stop 09/22/16 at 17:38; Status DC Dextrose (Dextrose 50%-Water Syringe) 25 gm STK-MED ONCE IV ; Start 09/22/16 at 11:45; Stop 09/22/16 at 11:46; Status DC Dextrose (Dextrose 50%-Water Syringe) 25 gm 1X ONCE IV Last administered on 10:45; Start 09/22/16 at 12:00; Stop 09/22/16 at 12:01; Status DC Dextrose (Dextrose 50%-Water Syringe) 25 gm 1X ONCE IV Last administered on 11:40; Start 09/22/16 at 12:00; Stop 09/22/16 at 12:01; Status DC Nitroglycerin (Nitrostat) 0.4 mg PRN Q5MIN PRN SL CHEST PAIN Last administered on 09/24/16 03:18; Start 09/22/16 at 12:00 Ondansetron HCl (Zofran) 4 mg PRN Q8HRS PRN IV NAUSEA/VOMITING; Start 09/22/16 at 12:30; Stop 09/23/16 at 12:29; Status DC Levofloxacin/ Dextrose (Levaquin Per Pharmacy) 1 each PRN DAILY PRN MC SEE COMMENTS; Start 09/22/16 at 12:45; Stop 09/25/16 at 15:18; Status DC Levofloxacin/ Dextrose 150 ml @ 100 mls/hr Q48H IV Last administered on 14:46; Start 09/22/16 at 13:00 Sodium Chloride 500 ml @ 1,000 mls/hr 1X ONCE IV Last administered on 13:10; Start 09/22/16 at 13:15; Stop 09/22/16 at 13:44; Status DC Dextrose (Dextrose 50%-Water Syringe) 25 gm 1X ONCE IV Last administered on 13:11; Start 09/22/16 at 13:15; Stop 09/22/16 at 13:16; Status DC Insulin Aspart (NovoLOG) 0-5 UNITS TIDWMEALS SQ Last administered on 09/22/16 18:17; Start 09/22/16 at 17:00; Stop 09/23/16 at 09:23; Status DC Dextrose (Dextrose 50%-Water Syringe) 12.5 gm PRN Q15MIN PRN IV SEE COMMENTS Last administered on 09/22/16 13:58; Start 09/22/16 at 14:00 Labetalol HCl (Normodyne) 20 mg PRN Q2HR PRN IVP HYPERTENSION, SEE COMMENTS Last administered on 09/30/16 16:25; Start 09/22/16 at 14:15; Stop 09/30/16 at 17 :24; Status DC Amlodipine Besylate (Norvasc) 10 mg DAILY PO ; Start 09/23/16 at 09:00; Status UNV Atorvastatin Calcium (Lipitor) 40 mg HS PO Last administered on 09/30/16 21:32 ; Start 09/22/16 at 21:00 Diltiazem HCl (Cardizem 24hr Cd) 240 mg DAILY PO Last administered on 09/30/16 09:09; Start 09/22/16 at 15:00 Isosorbide Mononitrate (Imdur) 120 mg DAILY PO Last administered on 09/30/16 09 :09; Start 09/22/16 at 15:00 Albuterol/ Ipratropium (Duoneb) 3 ml STK-MED ONCE .ROUTE ; Start 09/22/16 at 15: 06; Stop 09/22/16 at 15:07; Status DC Albuterol/ Ipratropium (Duoneb) 3 ml RTQID NEB Last administered on 09/30/16 16 :29; Start 09/22/16 at 16:00; Stop 09/30/16 at 16:50; Status DC Budesonide (Pulmicort) 0.5 mg RTBID NEB Last administered on 09/30/16 19:35; Start 09/22/16 at 20:00 Magnesium Sulfate/ Dextrose 50 ml @ 25 mls/hr PRN DAILY PRN IV for Mag < 1.7 on am labs; Start 09/22/16 at 15:45 Sodium Chloride 1,000 ml @ 100 mls/hr Q10H IV Last administered on 09/23/16 01 :35; Start 09/22/16 at 15:45; Stop 09/23/16 at 07:45; Status DC Dextrose 1,000 ml @ 50 mls/hr Q20H IV Last administered on 09/22/16 17:39; Start 09/22/16 at 17:45; Stop 09/23/16 at 07:45; Status DC Insulin Aspart (NovoLOG) 0-9 UNITS TIDWMEALS SQ Last administered on 09/29/16 18:35; Start 09/23/16 at 12:00 Dextrose (Dextrose 50%-Water Syringe) 12.5 gm PRN Q15MIN PRN IV SEE COMMENTS; Start 09/23/16 at 09:30; Stop 09/23/16 at 12:56; Status DC Albuterol/ Ipratropium (Duoneb) 3 ml RTQID NEB ; Start 09/23/16 at 12:00; Stop at 12:56; Status DC Prednisone (Prednisone) 60 mg 1X ONCE PO Last administered on 09/23/16 10:00; Start 09/23/16 at 09:30; Stop 09/23/16 at 09:31; Status DC Benzonatate (Tessalon Perle) 100 mg [id number] PO Last administered on 09/30/16 21: 32; Start 09/23/16 at 09:30 Furosemide (Lasix) 20 mg 1X ONCE IVP Last administered on 09/23/16 17:30; Start 09/23/16 at 17:30; Stop 09/23/16 at 17:31; Status DC Furosemide (Lasix) 80 mg 1X ONCE IVP Last administered on 09/24/16 15:56; Start 09/24/16 at 11:00; Stop 09/24/16 at 11:03; Status DC Acetylcysteine (Mucomyst 20% Oral Solution) 1,200 mg BID PO Last administered on 09/26/16 08:51; Start 09/24/16 at 11:30; Stop 09/26/16 at 11:29; Status DC Darbepoetin Arhs (Aranesp) 60 mcg [id number] SQ Last administered on 09/24/16 20: 23; Start 09/24/16 at 21:00 Tramadol HCl (Ultram) 50 mg PRN Q6HRS PRN PO PAIN Last administered on 01:12; Start 09/24/16 at 11:30 Iohexol (Omnipaque 300 Mg/ml) 100 ml STK-MED ONCE .ROUTE ; Start 09/24/16 at 12: 12; Stop 09/24/16 at 12:13; Status DC Lidocaine/Sodium Bicarbonate (Buffered Lidocaine 1%) 20 ml STK-MED ONCE IJ ; Start 09/24/16 at 12:12; Stop 09/24/16 at 12:13; Status DC Midazolam HCl (Versed) 5 mg STK-MED ONCE .ROUTE ; Start 09/24/16 at 12:12; Stop 09/24/16 at 12:13; Status DC Fentanyl Citrate (Fentanyl 5ml Vial) 250 mcg STK-MED ONCE .ROUTE ; Start at 12:12; Stop 09/24/16 at 12:13; Status DC Heparin Sodium/ Sodium Chloride 2,000 ml @ As Directed STK-MED ONCE .ROUTE ; Start 09/24/16 at 12:13; Stop 09/24/16 at 12:14; Status DC Iodixanol (Visipaque 320) 100 ml STK-MED ONCE .ROUTE ; Start 09/24/16 at 12:13; Stop 09/24/16 at 12:14; Status DC Heparin Sodium (Porcine) (Heparin Sodium) 10,000 unit STK-MED ONCE .ROUTE ; Start 09/24/16 at 12:15; Stop 09/24/16 at 12:16; Status DC Insulin Detemir (Levemir) 10 units QHS SQ Last administered on 09/30/16 21:36; Start 09/24/16 at 21:00 Heparin Sodium/ Sodium Chloride 1,000 unit 1X ONCE IART Last administered on 14:52; Start 09/24/16 at 14:00; Stop 09/24/16 at 14:01; Status DC Lidocaine/Sodium Bicarbonate (Buffered Lidocaine 1%) 20 ml 1X ONCE IJ Last administered on 09/24/16 14:00; Start 09/24/16 at 14:00; Stop 09/24/16 at 14:01; Status DC Midazolam HCl (Versed) 5 mg 1X ONCE IV ; Start 09/24/16 at 14:00; Stop 09/24/16 at 14:01; Status DC Fentanyl Citrate (Fentanyl 5ml Vial) 250 mcg 1X ONCE IV ; Start 09/24/16 at 14: 00; Stop 09/24/16 at 14:01; Status DC Iohexol (Omnipaque 300 Mg/ml) 100 ml 1X ONCE IART Last administered on 14:51; Start 09/24/16 at 14:00; Stop 09/24/16 at 14:01; Status DC Iodixanol (Visipaque 320) 100 ml 1X ONCE IART Last administered on 09/24/16 14 :00; Start 09/24/16 at 14:00; Stop 09/24/16 at 14:01; Status DC Heparin Sodium (Porcine) (Heparin Sodium) 4,000 unit 1X ONCE IV Last administered on 09/24/16 14:00; Start 09/24/16 at 14:00; Stop 09/24/16 at 14:01; Status DC Info (Do NOT chart on this entry -- for MONITORING) 1 each PRN DAILY PRN MC SEE COMMENTS; Start 09/24/16 at 14:15; Stop 09/26/16 at 14:14; Status DC Clopidogrel Bisulfate (Plavix) 300 mg 1X ONCE PO Last administered on 16:01; Start 09/24/16 at 15:30; Stop 09/24/16 at 15:31; Status DC Clopidogrel Bisulfate (Plavix) 75 mg DAILYWBKFT PO Last administered on 09:59; Start 09/25/16 at 08:00; Stop 10/25/16 at 08:00 Ringer's Solution 1,000 ml @ 100 mls/hr Q10H IV ; Start 09/27/16 at 00:01; Stop 09/27/16 at 00:01; Status DC Cefazolin Sodium/ Dextrose 50 ml @ 100 mls/hr 1X PREOP PRN IV SEE COMMENTS Last administered on 09/27/16 13:22; Start 09/27/16 at 06:00; Stop 09/27/16 at 18: 00; Status DC Heparin Sodium (Porcine) 5000 unit/Sodium Chloride 505 ml @ 505 mls/hr 1X PERIOP ONCE IRR Last administered on 09/27/16 13:36; Start 09/27/16 at 07:15; Stop 09/27/16 at 08:14; Status DC Cefazolin Sodium 1 gm/Sodium Chloride 500 ml @ 500 mls/hr 1X PERIOP ONCE IRR Last administered on 09/27/16 13:36; Start 09/27/16 at 07:15; Stop 09/27/16 at 08: 14; Status DC Furosemide (Lasix) 40 mg 1X ONCE IVP Last administered on 09/27/16 13:20; Start 09/27/16 at 11:00; Stop 09/27/16 at 11:01; Status DC Lidocaine HCl (Lidocaine Pf 2% Vial) 5 ml STK-MED ONCE .ROUTE ; Start 09/27/16 at 11:42; Stop 09/27/16 at 11:43; Status DC Ondansetron HCl (Zofran) 4 mg STK-MED ONCE .ROUTE ; Start 09/27/16 at 11:42; Stop 09/27/16 at 11:43; Status DC Famotidine (Pepcid) 20 mg STK-MED ONCE .ROUTE ; Start 09/27/16 at 11:42; Stop 09/27/16 at 11:43; Status DC Dexamethasone Sodium Phosphate (Decadron) 20 mg STK-MED ONCE .ROUTE ; Start 09/27 at 11:42; Stop 09/27/16 at 11:43; Status DC Propofol 20 ml @ As Directed STK-MED ONCE IV ; Start 09/27/16 at 11:42; Stop 09/27 at 11:43; Status DC Rocuronium Weston (Zemuron) 50 mg STK-MED ONCE .ROUTE ; Start 09/27/16 at 11:45 ; Stop 09/27/16 at 11:46; Status DC Fentanyl Citrate (Fentanyl 5ml Vial) 250 mcg STK-MED ONCE .ROUTE ; Start at 11:46; Stop 09/27/16 at 11:47; Status DC Cellulose 1 each STK-MED ONCE .ROUTE ; Start 09/27/16 at 12:04; Stop 09/27/16 at 12:05; Status DC Bupivacaine HCl (Marcaine 0.25%) 50 ml STK-MED ONCE .ROUTE ; Start 09/27/16 at 12 :04; Stop 09/27/16 at 12:05; Status DC Iohexol (Omnipaque 300 Mg/ml) 100 ml STK-MED ONCE .ROUTE ; Start 09/27/16 at 12: 05; Stop 09/27/16 at 12:06; Status DC Gelatin (Gelfoam Size 100) 1 each STK-MED ONCE .ROUTE ; Start 09/27/16 at 12:05 ; Stop 09/27/16 at 12:06; Status DC Papaverine HCl 60 mg STK-MED ONCE .ROUTE ; Start 09/27/16 at 12:05; Stop 09/27/16 at 12:06; Status DC Thrombin 20,000 unit STK-MED ONCE TP ; Start 09/27/16 at 12:05; Stop 09/27/16 at 12:06; Status DC Lidocaine HCl 1 ml STK-MED ONCE .ROUTE ; Start 09/27/16 at 12:35; Stop 09/27/16 at 12:36; Status DC Ringer's Solution 1,000 ml @ 75 mls/hr [id number] IV Last administered on 17:03; Start 09/27/16 at 13:30; Stop 09/28/16 at 12:44; Status DC Furosemide (Lasix) 40 mg STK-MED ONCE .ROUTE ; Start 09/27/16 at 13:34; Stop 09/27 at 13:35; Status DC Heparin Sodium (Porcine) (Heparin Sodium) 10,000 unit STK-MED ONCE .ROUTE ; Start 09/27/16 at 14:29; Stop 09/27/16 at 14:30; Status DC Glycopyrrolate (Robinul) 1 mg STK-MED ONCE .ROUTE ; Start 09/27/16 at 16:00; Stop 09/27/16 at 16:01; Status DC Neostigmine Methylsulfate 5 mg STK-MED ONCE .ROUTE ; Start 09/27/16 at 16:00; Stop 09/27/16 at 16:01; Status DC Desflurane (Suprane) 90 ml STK-MED ONCE IH ; Start 09/27/16 at 16:00; Stop at 16:01; Status DC Bacitracin 14 margie STK-MED ONCE TP Last administered on 09/27/16t 16:12; Start at 16:14; Stop 09/27/16 at 16:15; Status DC Propofol 20 ml @ As Directed STK-MED ONCE IV ; Start 09/27/16 at 16:28; Stop 09/27 at 16:29; Status DC Fentanyl Citrate (Fentanyl 2ml Vial) 25 mcg PRN Q5MIN PRN IV Acute Pain; Start 09/27/16 at 16:45; Stop 09/28/16 at 16:44; Status DC Fentanyl Citrate (Fentanyl 2ml Vial) 50 mcg PRN Q5MIN PRN IV Acute Pain Last administered on 09/27/16 17:21; Start 09/27/16 at 16:45; Stop 09/28/16 at 16:44; Status DC Morphine Sulfate 2 mg PRN Q10MIN PRN IV Mild Pain Last administered on 17:00; Start 09/27/16 at 16:45; Stop 09/28/16 at 16:44; Status DC Hydromorphone HCl (Dilaudid) 0.5 mg PRN Q10MIN PRN IV Moderate to severe pain; Start 09/27/16 at 16:45; Stop 09/28/16 at 16:44; Status DC Ondansetron HCl (Zofran) 4 mg PRN Q6HRS PRN IV Nausea, 2nd Choice; Start at 16:45; Stop 09/28/16 at 16:44; Status DC Prochlorperazine Edisylate (Compazine) 5 mg PRN Q6HRS PRN IV Nausea/Vomiting, 2nd Choice; Start 09/27/16 at 16:45; Stop 09/28/16 at 16:44; Status DC Haloperidol Lactate (Haldol) 5 mg STK-MED ONCE .ROUTE ; Start 09/27/16 at 17:28; Stop 09/27/16 at 17:29; Status DC Haloperidol Lactate (Haldol) 2.5 mg 1X PACU PRN IVP AGITATION Last administered on 09/27/16 18:07; Start 09/27/16 at 17:30; Stop 09/28/16 at 15:58; Status DC Furosemide (Lasix) 80 mg 1X ONCE IVP Last administered on 09/28/16 11:19; Start 09/28/16 at 11:00; Stop 09/28/16 at 11:01; Status DC Cefazolin Sodium/ Dextrose 50 ml @ 100 mls/hr 1X PREOP PRN IV [employer]; Start 09/30/16 at 06:00; Stop 09/30/16 at 08:00; Status DC Albuterol/ Ipratropium (Duoneb) 3 ml 1X ONCE NEB Last administered on 00:07; Start 09/29/16 at 00:00; Stop 09/29/16 at 00:12; Status DC Fentanyl Citrate (Fentanyl 2ml Vial) 25 mcg PRN Q5MIN PRN IV MILD PAIN; Start 09/30/16 at 07:00; Stop 10/01/16 at 06:59 Fentanyl Citrate (Fentanyl 2ml Vial) 50 mcg PRN Q5MIN PRN IV MODERATE PAIN Last administered on 09/30/16 16:19; Start 09/30/16 at 07:00; Stop 10/01/16 at 06: 59 Morphine Sulfate 1 mg PRN Q10MIN PRN IV SEVERE PAIN; Start 09/30/16 at 07:00; Stop 10/01/16 at 06:59 Ringer's Solution 1,000 ml @ 0 mls/hr Q0M IV ; Start 09/30/16 at 07:00; Stop 09/30/16 at 18:59; Status DC Lidocaine HCl 2 ml PRN 1X PRN ID PRIOR TO IV START; Start 09/30/16 at 07:00; Stop 10/01/16 at 06:59 Hydromorphone HCl (Dilaudid) 0.5 mg PRN Q10MIN PRN IV SEV PAIN, Second choice; Start 09/30/16 at 07:00; Stop 10/01/16 at 06:59 Prochlorperazine Edisylate (Compazine) 5 mg PACU PRN PRN IV NAUSEA, MRX1; Start 09/30/16 at 07:00; Stop 10/01/16 at 06:59 Lidocaine HCl 48 ml/Sodium Bicarbonate 12 meq/Miscellaneous 60 ml @ 60 mls/hr 1X PERIOP ONCE ID Last administered on 09/30/16 14:54; Start 09/30/16 at 06:00 ; Stop 09/30/16 at 06:59; Status DC Cefazolin Sodium/ Dextrose 50 ml @ 100 mls/hr 1X PREOP IV Last administered on 09/30/16 17:02; Start 09/30/16 at 11:45; Stop 10/01/16 at 18:00 Midazolam HCl (Versed) 2 mg STK-MED ONCE .ROUTE ; Start 09/30/16 at 11:45; Stop 09/30/16 at 11:46; Status DC Fentanyl Citrate (Fentanyl 2ml Vial) 100 mcg STK-MED ONCE .ROUTE ; Start at 11:45; Stop 09/30/16 at 11:46; Status DC Propofol 20 ml @ As Directed STK-MED ONCE IV ; Start 09/30/16 at 11:46; Stop 09/30 at 11:47; Status DC Dexamethasone Sodium Phosphate (Decadron) 20 mg STK-MED ONCE .ROUTE ; Start 09/30 at 11:46; Stop 09/30/16 at 11:47; Status DC Ondansetron HCl (Zofran) 4 mg STK-MED ONCE .ROUTE ; Start 09/30/16 at 11:46; Stop 09/30/16 at 11:47; Status DC Lidocaine HCl (Lidocaine Pf 2% Vial) 5 ml STK-MED ONCE .ROUTE ; Start 09/30/16 at 11:46; Stop 09/30/16 at 11:47; Status DC Silver Sulfadiazine (Silvadene) 25 margie STK-MED ONCE TP ; Start 09/30/16 at 13:37 ; Stop 09/30/16 at 13:38; Status DC Dextrose (Dextrose 50%-Water Syringe) 12.5 gm 1X ONCE IV Last administered on 09/30/16 14:07; Start 09/30/16 at 14:00; Stop 09/30/16 at 14:02; Status DC Bacitracin 14 margie STK-MED ONCE TP Last administered on 09/30/16 15:29; Start at 15:06; Stop 09/30/16 at 15:07; Status DC Albuterol Sulfate (Ventolin Neb Soln) 2.5 mg STK-MED ONCE .ROUTE ; Start at 16:05; Stop 09/30/16 at 16:06; Status DC Albuterol Sulfate (Ventolin Neb Soln) 2.5 mg 1X ONCE NEB Last administered on 09/30/16 16:24; Start 09/30/16 at 16:30; Stop 09/30/16 at 16:31; Status DC Albuterol/ Ipratropium (Duoneb) 3 ml RTQID NEB Last administered on 09/30/16t 19 :35; Start 09/30/16 at 20:00 Hydralazine HCl (Apresoline) 10 mg PRN Q4HRS PRN IVP for SBP > 170; Start at 17:30 Active Scripts Active Levofloxacin 750 Mg Tablet 1 Tab PO DAILY Levemir Flextouch (Insulin Detemir) 100 Unit/1 Ml Insuln.pen 20 Units SQ QHS 30 Days Novolog Flexpen (Insulin Aspart) 100 Unit/1 Ml Insuln.pen 10 Units SQ TIDAC 30 Days Reported Percocet 5-325 Mg Tablet (Oxycodone/Acetaminophen) 1 Each Tablet 1 Tab PO PRN Q6HRS PRN Advair 100-50 Diskus (Fluticasone/Salmeterol) 1 Each Disk.w.dev 1 Puff IH BID Spiriva Respimat (Tiotropium [place]on) 4 Gm Mist.inhal 2.5 Gm IH DAILY Symbicort 160-4.5 Mcg Inhaler (Budesonide/Formoterol Fumarate) 10.2 Gm Hfa.aer.ad 2 Puff IH BID Atorvastatin Calcium 20 Mg Tablet 20 Mg PO HS Lisinopril-Hctz 10-12.5 Mg Tab (Lisinopril/Hydrochlorothiazide) 1 Each Tablet 1 Tab PO DAILY Isosorbide Mononitrate Er (Isosorbide Mononitrate) 120 Mg Tab.er.24h 120 Mg PO DAILY Novolin N (Nph, Human Insulin Isophane) 100 Unit/1 Ml Vial 0 SQ Promethazine-Codeine Syrup (Promethazine Hcl/Codeine) 118 Ml Syrup 5 Ml PO Q4- 6HRS Diltiazem 24HR Cd (Diltiazem Hcl) 240 Mg Cap.er.24h 240 Mg PO DAILY NITROGLYCERIN SubLingual (Nitroglycerin) 0.4 Mg Tab.subl 0.4 Mg SL PRN Q5MIN PRN Atorvastatin Calcium 40 Mg Tablet 40 Mg PO HS Vitals/I & O Vital Sign - Last 24 Hours 09/29/16 09/30/16 09/30/16 09/30/16 22:28 01:12 02:12 02:45 Temp 97.8 98.0 97.8 98.0 Pulse 88 79 Resp 18 B/P (MAP) 155/92 (113) 157/90 (112) Pulse Ox 91 91 91 90 O2 Delivery Room Air Room Air Room Air Room Air 09/30/16 09/30/16 09/30/16 09/30/16 07:07 08:00 08:00 09:09 Temp 98.3 98.3 Pulse 97 97 Resp 18 B/P (MAP) 168/80 (109) 168/80 Pulse Ox 92 95 O2 Delivery Room Air Nasal Cannula Room Air O2 Flow Rate 2.0 09/30/16 09/30/16 09/30/16 09/30/16 09:09 11:00 11:27 13:30 Temp 98.6 98.9 98.6 98.9 Pulse 97 81 79 Resp 18 16 B/P (MAP) 168/80 172/86 (114) 150/73 Pulse Ox 95 93 93 O2 Delivery Room Air Room Air Nasal Cannula O2 Flow Rate 2 09/30/16 09/30/16 09/30/16 09/30/16 15:39 15:39 15:54 15:59 Temp 97.1 97.1 Pulse 83 78 Resp 20 22 20 B/P (MAP) 164/90 168/78 Pulse Ox 94 95 99 O2 Delivery Nasal Cannula Nasal Cannula Nasal Cannula Nasal Cannula O2 Flow Rate 4 4 4 09/30/16 09/30/16 09/30/16 09/30/16 16:10 16:19 16:25 16:25 Temp 97.0 97.0 Pulse 85 78 63 Resp 20 20 22 B/P (MAP) 205/100 181/112 181/112 Pulse Ox 94 100 92 O2 Delivery Nasal Cannula Nasal Cannula Nasal Cannula O2 Flow Rate 4 2.0 2 09/30/16 09/30/16 09/30/16 09/30/16 16:34 16:40 16:45 16:50 Temp 97.0 97.0 Pulse 67 70 68 Resp 22 20 B/P (MAP) 168/102 168/102 170/94 (119) Pulse Ox 94 91 92 O2 Delivery Nasal Cannula Nasal Cannula Nasal Cannula O2 Flow Rate 2 2 2.0 09/30/16 09/30/16 09/30/16 09/30/16 16:50 17:00 17:15 17:30 Temp 97.0 97.0 Pulse 68 68 70 69 Resp 20 B/P (MAP) 160/92 168/104 (125) 172/92 (118) 161/102 (121) Pulse Ox 92 O2 Delivery Nasal Cannula O2 Flow Rate 2 09/30/16 09/30/16 09/30/16 17:45 19:15 19:20 Temp 98.4 98.4 Pulse 76 74 Resp 22 B/P (MAP) 172/97 (122) 160/78 (105) Pulse Ox 98 100 O2 Delivery Nasal Cannula Nasal Cannula O2 Flow Rate 2.0 4.0 Intake and Output 09/29/16 09/29/16 09/30/16 15:00 23:00 07:00 Intake Total 240 ml 120 ml Output Total 550 ml 350 ml 950 ml Balance -550 ml -110 ml -830 ml VIKASH UMANZOR MD Sep 30, 2016 22:29
[2016-09-30] MEDS: hydrALAZINE 20 MG/ML VIAL. IVP PRN (23:19)
--- NOTE | 2016-09-30 23:42 | PDOC ---
Provider Note Provider Note RENAL F/U : KIRIT S : Sitting up. Vascular surgery procedure today. O : VSS Afebrile. Neck : Supple Lungs : Non labored. CVS : RRR Abd : Benign in appearance, without distention. Neuro : Awake. Labs reviewed. A/P : ARF/ATN HTN w CKD III EDEMA CHF. Cr better. Vascular surgery today. Supportive care. CPM. DENIS BETH MD Sep 30, 2016 23:42
[2016-10-01 03:25] VITALS: BP 186/99
[2016-10-01] MEDS: hydrALAZINE 20 MG/ML VIAL. IVP PRN ×2 (03:35→21:48)
[2016-10-01 06:01] LABS: BASO # 0.1 x10^3/uL (0.0-0.2); BASO % 1 % (0-3); EOS % 1 % (0-3); HEMATOCRIT 29.8 % (39.0-53.0); HEMOGLOBIN 9.8 g/dL (13.0-17.5); LYMPH # 1.1 x10^3/uL (1.0-4.8); LYMPH % 10 % (24-48); MEAN CORPUSCULAR HEMOGLOBIN 29 pg (25-35); MEAN CORPUSCULAR HGB CONC 33 g/dL (31-37); MEAN CORPUSCULAR VOLUME 88 fL (79-100); MONO % 12 % (0-9); NEUT % 76 % (31-73); PLATELET COUNT 303 x10^3/uL (140-400); RED BLOOD COUNT 3.39 x10^6/uL (4.30-5.70); RED CELL DISTRIBUTION WIDTH 16.9 % (11.5-14.5); WHITE BLOOD COUNT 10.3 x10^3/uL (4.0-11.0)
[2016-10-01 06:16] LABS: CALCIUM 8.5 mg/dL (8.5-10.1); GFR 39.7; POTASSIUM 4.4 mmol/L (3.5-5.1)
[2016-10-01] MEDS: IPRATRPIUM/ALBUTEROL 0.5/2.5MG 3 ML NEBU. NEB SCH ×4 (06:21→19:27)
[2016-10-01] MEDS: BUDESONIDE 0.5 MG/2 ML NEBU. NEB SCH ×2 (06:21→19:27)
--- NOTE | 2016-10-01 06:25 | PDOC ---
Provider Note Provider Note Vascular F/U Post op rt pop DP bypass and POD # 1 amputation of rt. 1st, 2nd & 5th toes, Debridement rt heel ulcer 2+ graft pulse, thigh , calf and DP incisions look good Amp site look good, Heel still with some unhealthy tissue Has a temp. catheter rt. IJ Imp: Patent bypass rt leg All incisions look good Plan; Redressed, Elevate , heel off bed May need further heel debridement and possible exchange of temp. cath. to PC if he will continue dialysis, ( ? arm access? also) DAJA AGUILAR MD Oct 01, 2016 06:25
[2016-10-01] MEDS: traMADol 50 MG TABLET PO PRN ×2 (06:48→21:47)
[2016-10-01 07:50] VITALS: BP 150/85
[2016-10-01] MEDS: BENZONATATE 100 MG CAPSULE. PO SCH ×3 (09:18→21:47)
[2016-10-01] MEDS: CLOPIDOGREL BISULFATE 75 MG TABLET PO SCH (09:18)
[2016-10-01] MEDS: ISOSORBIDE MONONITRATE ER 30 MG TAB.ER.24H PO SCH (09:19)
[2016-10-01] MEDS: INSULIN ASPART 300 UNITS/3 ML INSULN.PEN SQ SCH ×3 (09:23→17:00)
--- NOTE | 2016-10-01 10:05 | PDOC ---
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 wound care. HX bilateral PE with cardiac arrest ([facility] 2017) sec to PE COPD on home Oxygen DM2; insulin with HYPOGLYCEMIA: SSI with Levemir Renal failure: nephrology following. HTN not controlled : prn hydralazine, continue home medications. Diastolic heart failure: stable. Intractable pain : PRN iv morphine with [place] Prognosis guarded labs reviewed. History of Present Illness History of Present Illness pain 11/01, not controlled HTN not controlled. Vitals Vitals Vital Signs Date Time Temp Pulse Resp B/P (MAP) Pulse Ox O2 Delivery O2 Flow Rate FiO2 10/01/16 09:20 91 150/85 10/01/16 07:50 98.6 23 90 Nasal Cannula 2.0 98.6 Physical Exam General: Alert, Oriented X3, Other Heart: Regular rate, Normal S1, Normal S2, Other (3/6 systolic murmur to LLS border) Lungs: Clear, Other (bl decreased bs) Abdomen: Soft, No tenderness Extremities: No clubbing, No cyanosis, Other Skin: No rashes Labs LABS Laboratory Tests Test 09/30/16 11:32 09/30/16 13:41 09/30/16 14:27 09/30/16 15:43 Glucose (Fingerstick) 96 mg/dL (70-99) 74 mg/dL (70-99) 107 mg/dL (70-99) 90 mg/dL (70-99) Test 09/30/16 17:42 09/30/16 21:31 10/01/16 05:40 10/01/16 08:14 Glucose (Fingerstick) 84 mg/dL (70-99) 205 mg/dL (70-99) 162 mg/dL (70-99) White Blood Count 10.3 x10^3/uL (4.0-11.0) Red Blood Count 3.39 x10^6/uL (4.30-5.70) Hemoglobin 9.8 g/dL (13.0-17.5) Hematocrit 29.8 % (39.0-53.0) Mean Corpuscular Volume 88 fL (79-100) Mean Corpuscular Hemoglobin 29 pg (25-35) Mean Corpuscular Hemoglobin Concent 33 g/dL (31-37) Red Cell Distribution Width 16.9 % (11.5-14.5) Platelet Count 303 x10^3/uL (140-400) Neutrophils (%) (Auto) 76 % (31-73) Lymphocytes (%) (Auto) 10 % (24-48) Monocytes (%) (Auto) 12 % (0-9) Eosinophils (%) (Auto) 1 % (0-3) Basophils (%) (Auto) 1 % (0-3) Neutrophils # (Auto) 7.9 x10^3uL (1.8-7.7) Lymphocytes # (Auto) 1.1 x10^3/uL (1.0-4.8) Monocytes # (Auto) 1.2 x10^3/uL (0.0-1.1) Eosinophils # (Auto) 0.1 x10^3/uL (0.0-0.7) Basophils # (Auto) 0.1 x10^3/uL (0.0-0.2) Sodium Level 137 mmol/L (136-145) Potassium Level 4.4 mmol/L (3.5-5.1) Chloride Level 102 mmol/L (98-107) Carbon Dioxide Level 28 mmol/L (21-32) Anion Gap 7 (6-14) Blood Urea Nitrogen 46 mg/dL (8-26) Creatinine 2.0 mg/dL (0.7-1.3) Estimated GFR (Cockcroft-Gault) 39.7 Glucose Level 209 mg/dL (70-99) Calcium Level 8.5 mg/dL (8.5-10.1) Assessment and Plan Assessmemt and Plan Problems Medical Problems: (1) Hypoglycemia Status: Acute Problems: Comment Review of Relevant I have reviewed the following items valerie (where applicable) has been applied. Labs Laboratory Tests Test 09/29/16 11:31 09/29/16 17:06 09/29/16 20:39 09/30/16 06:00 Glucose (Fingerstick) 213 mg/dL (70-99) 189 mg/dL (70-99) 159 mg/dL (70-99) Sodium Level 139 mmol/L (136-145) Potassium Level 4.1 mmol/L (3.5-5.1) Chloride Level 103 mmol/L (98-107) Carbon Dioxide Level 30 mmol/L (21-32) Anion Gap 6 (6-14) Blood Urea Nitrogen 52 mg/dL (8-26) Creatinine 2.2 mg/dL (0.7-1.3) Estimated GFR (Cockcroft-Gault) 35.6 Glucose Level 101 mg/dL (70-99) Calcium Level 8.6 mg/dL (8.5-10.1) Test 09/30/16 08:26 09/30/16 11:32 09/30/16 13:41 09/30/16 14:27 Glucose (Fingerstick) 97 mg/dL (70-99) 96 mg/dL (70-99) 74 mg/dL (70-99) 107 mg/dL (70-99) Test 09/30/16 15:43 09/30/16 17:42 09/30/16 21:31 10/01/16 05:40 Glucose (Fingerstick) 90 mg/dL (70-99) 84 mg/dL (70-99) 205 mg/dL (70-99) White Blood Count 10.3 x10^3/uL (4.0-11.0) Red Blood Count 3.39 x10^6/uL (4.30-5.70) Hemoglobin 9.8 g/dL (13.0-17.5) Hematocrit 29.8 % (39.0-53.0) Mean Corpuscular Volume 88 fL (79-100) Mean Corpuscular Hemoglobin 29 pg (25-35) Mean Corpuscular Hemoglobin Concent 33 g/dL (31-37) Red Cell Distribution Width 16.9 % (11.5-14.5) Platelet Count 303 x10^3/uL (140-400) Neutrophils (%) (Auto) 76 % (31-73) Lymphocytes (%) (Auto) 10 % (24-48) Monocytes (%) (Auto) 12 % (0-9) Eosinophils (%) (Auto) 1 % (0-3) Basophils (%) (Auto) 1 % (0-3) Neutrophils # (Auto) 7.9 x10^3uL (1.8-7.7) Lymphocytes # (Auto) 1.1 x10^3/uL (1.0-4.8) Monocytes # (Auto) 1.2 x10^3/uL (0.0-1.1) Eosinophils # (Auto) 0.1 x10^3/uL (0.0-0.7) Basophils # (Auto) 0.1 x10^3/uL (0.0-0.2) Sodium Level 137 mmol/L (136-145) Potassium Level 4.4 mmol/L (3.5-5.1) Chloride Level 102 mmol/L (98-107) Carbon Dioxide Level 28 mmol/L (21-32) Anion Gap 7 (6-14) Blood Urea Nitrogen 46 mg/dL (8-26) Creatinine 2.0 mg/dL (0.7-1.3) Estimated GFR (Cockcroft-Gault) 39.7 Glucose Level 209 mg/dL (70-99) Calcium Level 8.5 mg/dL (8.5-10.1) Test 10/01/16 08:14 Glucose (Fingerstick) 162 mg/dL (70-99) Laboratory Tests Test 09/30/16 11:32 09/30/16 13:41 09/30/16 14:27 09/30/16 15:43 Glucose (Fingerstick) 96 mg/dL (70-99) 74 mg/dL (70-99) 107 mg/dL (70-99) 90 mg/dL (70-99) Test 09/30/16 17:42 09/30/16 21:31 10/01/16 05:40 10/01/16 08:14 Glucose (Fingerstick) 84 mg/dL (70-99) 205 mg/dL (70-99) 162 mg/dL (70-99) White Blood Count 10.3 x10^3/uL (4.0-11.0) Red Blood Count 3.39 x10^6/uL (4.30-5.70) Hemoglobin 9.8 g/dL (13.0-17.5) Hematocrit 29.8 % (39.0-53.0) Mean Corpuscular Volume 88 fL (79-100) Mean Corpuscular Hemoglobin 29 pg (25-35) Mean Corpuscular Hemoglobin Concent 33 g/dL (31-37) Red Cell Distribution Width 16.9 % (11.5-14.5) Platelet Count 303 x10^3/uL (140-400) Neutrophils (%) (Auto) 76 % (31-73) Lymphocytes (%) (Auto) 10 % (24-48) Monocytes (%) (Auto) 12 % (0-9) Eosinophils (%) (Auto) 1 % (0-3) Basophils (%) (Auto) 1 % (0-3) Neutrophils # (Auto) 7.9 x10^3uL (1.8-7.7) Lymphocytes # (Auto) 1.1 x10^3/uL (1.0-4.8) Monocytes # (Auto) 1.2 x10^3/uL (0.0-1.1) Eosinophils # (Auto) 0.1 x10^3/uL (0.0-0.7) Basophils # (Auto) 0.1 x10^3/uL (0.0-0.2) Sodium Level 137 mmol/L (136-145) Potassium Level 4.4 mmol/L (3.5-5.1) Chloride Level 102 mmol/L (98-107) Carbon Dioxide Level 28 mmol/L (21-32) Anion Gap 7 (6-14) Blood Urea Nitrogen 46 mg/dL (8-26) Creatinine 2.0 mg/dL (0.7-1.3) Estimated GFR (Cockcroft-Gault) 39.7 Glucose Level 209 mg/dL (70-99) Calcium Level 8.5 mg/dL (8.5-10.1) Microbiology 09/22/16 Blood Culture - Final, Complete NO GROWTH AFTER 5 DAYS Medications Current Medications Dextrose (Dextrose 50%-Water Syringe) 25 gm STK-MED ONCE IV ; Start 09/22/16 at 10:39; Stop 09/22/16 at 10:40; Status DC Dextrose 500 ml @ 30 mls/hr 1X ONCE IV Last administered on 09/22/16t 11:52; Start 09/22/16 at 11:45; Stop 09/22/16 at 17:38; Status DC Dextrose (Dextrose 50%-Water Syringe) 25 gm STK-MED ONCE IV ; Start 09/22/16 at 11:45; Stop 09/22/16 at 11:46; Status DC Dextrose (Dextrose 50%-Water Syringe) 25 gm 1X ONCE IV Last administered on 10:45; Start 09/22/16 at 12:00; Stop 09/22/16 at 12:01; Status DC Dextrose (Dextrose 50%-Water Syringe) 25 gm 1X ONCE IV Last administered on 11:40; Start 09/22/16 at 12:00; Stop 09/22/16 at 12:01; Status DC Nitroglycerin (Nitrostat) 0.4 mg PRN Q5MIN PRN SL CHEST PAIN Last administered on 09/24/16 03:18; Start 09/22/16 at 12:00 Ondansetron HCl (Zofran) 4 mg PRN Q8HRS PRN IV NAUSEA/VOMITING; Start 09/22/16 at 12:30; Stop 09/23/16 at 12:29; Status DC Levofloxacin/ Dextrose (Levaquin Per Pharmacy) 1 each PRN DAILY PRN MC SEE COMMENTS; Start 09/22/16 at 12:45; Stop 09/25/16 at 15:18; Status DC Levofloxacin/ Dextrose 150 ml @ 100 mls/hr Q48H IV Last administered on 14:46; Start 09/22/16 at 13:00 Sodium Chloride 500 ml @ 1,000 mls/hr 1X ONCE IV Last administered on 13:10; Start 09/22/16 at 13:15; Stop 09/22/16 at 13:44; Status DC Dextrose (Dextrose 50%-Water Syringe) 25 gm 1X ONCE IV Last administered on 13:11; Start 09/22/16 at 13:15; Stop 09/22/16 at 13:16; Status DC Insulin Aspart (NovoLOG) 0-5 UNITS TIDWMEALS SQ Last administered on 09/22/16 18:17; Start 09/22/16 at 17:00; Stop 09/23/16 at 09:23; Status DC Dextrose (Dextrose 50%-Water Syringe) 12.5 gm PRN Q15MIN PRN IV SEE COMMENTS Last administered on 09/22/16 13:58; Start 09/22/16 at 14:00 Labetalol HCl (Normodyne) 20 mg PRN Q2HR PRN IVP HYPERTENSION, SEE COMMENTS Last administered on 09/30/16 16:25; Start 09/22/16 at 14:15; Stop 09/30/16 at 17 :24; Status DC Amlodipine Besylate (Norvasc) 10 mg DAILY PO ; Start 09/23/16 at 09:00; Status UNV Atorvastatin Calcium (Lipitor) 40 mg HS PO Last administered on 09/30/16 21:32 ; Start 09/22/16 at 21:00 Diltiazem HCl (Cardizem 24hr Cd) 240 mg DAILY PO Last administered on 10/01/16 09:20; Start 09/22/16 at 15:00 Isosorbide Mononitrate (Imdur) 120 mg DAILY PO Last administered on 10/01/16 09 :19; Start 09/22/16 at 15:00 Albuterol/ Ipratropium (Duoneb) 3 ml STK-MED ONCE .ROUTE ; Start 09/22/16 at 15: 06; Stop 09/22/16 at 15:07; Status DC Albuterol/ Ipratropium (Duoneb) 3 ml RTQID NEB Last administered on 09/30/16 16 :29; Start 09/22/16 at 16:00; Stop 09/30/16 at 16:50; Status DC Budesonide (Pulmicort) 0.5 mg RTBID NEB Last administered on 10/01/16 06:21; Start 09/22/16 at 20:00 Magnesium Sulfate/ Dextrose 50 ml @ 25 mls/hr PRN DAILY PRN IV for Mag < 1.7 on am labs; Start 09/22/16 at 15:45 Sodium Chloride 1,000 ml @ 100 mls/hr Q10H IV Last administered on 09/23/16 01 :35; Start 09/22/16 at 15:45; Stop 09/23/16 at 07:45; Status DC Dextrose 1,000 ml @ 50 mls/hr Q20H IV Last administered on 09/22/16 17:39; Start 09/22/16 at 17:45; Stop 09/23/16 at 07:45; Status DC Insulin Aspart (NovoLOG) 0-9 UNITS TIDWMEALS SQ Last administered on 10/01/16 09:23; Start 09/23/16 at 12:00 Dextrose (Dextrose 50%-Water Syringe) 12.5 gm PRN Q15MIN PRN IV SEE COMMENTS; Start 09/23/16 at 09:30; Stop 09/23/16 at 12:56; Status DC Albuterol/ Ipratropium (Duoneb) 3 ml RTQID NEB ; Start 09/23/16 at 12:00; Stop at 12:56; Status DC Prednisone (Prednisone) 60 mg 1X ONCE PO Last administered on 09/23/16 10:00; Start 09/23/16 at 09:30; Stop 09/23/16 at 09:31; Status DC Benzonatate (Tessalon Perle) 100 mg [id number] PO Last administered on 10/01/16 09: 18; Start 09/23/16 at 09:30 Furosemide (Lasix) 20 mg 1X ONCE IVP Last administered on 09/23/16 17:30; Start 09/23/16 at 17:30; Stop 09/23/16 at 17:31; Status DC Furosemide (Lasix) 80 mg 1X ONCE IVP Last administered on 09/24/16 15:56; Start 09/24/16 at 11:00; Stop 09/24/16 at 11:03; Status DC Acetylcysteine (Mucomyst 20% Oral Solution) 1,200 mg BID PO Last administered on 09/26/16 08:51; Start 09/24/16 at 11:30; Stop 09/26/16 at 11:29; Status DC Darbepoetin Arsh (Aranesp) 60 mcg [id number] SQ Last administered on 09/24/16 20: 23; Start 09/24/16 at 21:00 Tramadol HCl (Ultram) 50 mg PRN Q6HRS PRN PO PAIN Last administered on 06:48; Start 09/24/16 at 11:30 Iohexol (Omnipaque 300 Mg/ml) 100 ml STK-MED ONCE .ROUTE ; Start 09/24/16 at 12: 12; Stop 09/24/16 at 12:13; Status DC Lidocaine/Sodium Bicarbonate (Buffered Lidocaine 1%) 20 ml STK-MED ONCE IJ ; Start 09/24/16 at 12:12; Stop 09/24/16 at 12:13; Status DC Midazolam HCl (Versed) 5 mg STK-MED ONCE .ROUTE ; Start 09/24/16 at 12:12; Stop 09/24/16 at 12:13; Status DC Fentanyl Citrate (Fentanyl 5ml Vial) 250 mcg STK-MED ONCE .ROUTE ; Start at 12:12; Stop 09/24/16 at 12:13; Status DC Heparin Sodium/ Sodium Chloride 2,000 ml @ As Directed STK-MED ONCE .ROUTE ; Start 09/24/16 at 12:13; Stop 09/24/16 at 12:14; Status DC Iodixanol (Visipaque 320) 100 ml STK-MED ONCE .ROUTE ; Start 09/24/16 at 12:13; Stop 09/24/16 at 12:14; Status DC Heparin Sodium (Porcine) (Heparin Sodium) 10,000 unit STK-MED ONCE .ROUTE ; Start 09/24/16 at 12:15; Stop 09/24/16 at 12:16; Status DC Insulin Detemir (Levemir) 10 units QHS SQ Last administered on 09/30/16 21:36; Start 09/24/16 at 21:00 Heparin Sodium/ Sodium Chloride 1,000 unit 1X ONCE IART Last administered on 14:52; Start 09/24/16 at 14:00; Stop 09/24/16 at 14:01; Status DC Lidocaine/Sodium Bicarbonate (Buffered Lidocaine 1%) 20 ml 1X ONCE IJ Last administered on 09/24/16 14:00; Start 09/24/16 at 14:00; Stop 09/24/16 at 14:01; Status DC Midazolam HCl (Versed) 5 mg 1X ONCE IV ; Start 09/24/16 at 14:00; Stop 09/24/16 at 14:01; Status DC Fentanyl Citrate (Fentanyl 5ml Vial) 250 mcg 1X ONCE IV ; Start 09/24/16 at 14: 00; Stop 09/24/16 at 14:01; Status DC Iohexol (Omnipaque 300 Mg/ml) 100 ml 1X ONCE IART Last administered on 14:51; Start 09/24/16 at 14:00; Stop 09/24/16 at 14:01; Status DC Iodixanol (Visipaque 320) 100 ml 1X ONCE IART Last administered on 09/24/16 14 :00; Start 09/24/16 at 14:00; Stop 09/24/16 at 14:01; Status DC Heparin Sodium (Porcine) (Heparin Sodium) 4,000 unit 1X ONCE IV Last administered on 09/24/16 14:00; Start 09/24/16 at 14:00; Stop 09/24/16 at 14:01; Status DC Info (Do NOT chart on this entry -- for MONITORING) 1 each PRN DAILY PRN MC SEE COMMENTS; Start 09/24/16 at 14:15; Stop 09/26/16 at 14:14; Status DC Clopidogrel Bisulfate (Plavix) 300 mg 1X ONCE PO Last administered on 16:01; Start 09/24/16 at 15:30; Stop 09/24/16 at 15:31; Status DC Clopidogrel Bisulfate (Plavix) 75 mg [id number] PO Last administered on 09:18; Start 09/25/16 at 08:00; Stop 10/25/16 at 08:00 Ringer's Solution 1,000 ml @ 100 mls/hr Q10H IV ; Start 09/27/16 at 00:01; Stop 09/27/16 at 00:01; Status DC Cefazolin Sodium/ Dextrose 50 ml @ 100 mls/hr 1X PREOP PRN IV SEE COMMENTS Last administered on 09/27/16 13:22; Start 09/27/16 at 06:00; Stop 09/27/16 at 18: 00; Status DC Heparin Sodium (Porcine) 5000 unit/Sodium Chloride 505 ml @ 505 mls/hr 1X PERIOP ONCE IRR Last administered on 09/27/16 13:36; Start 09/27/16 at 07:15; Stop 09/27/16 at 08:14; Status DC Cefazolin Sodium 1 gm/Sodium Chloride 500 ml @ 500 mls/hr 1X PERIOP ONCE IRR Last administered on 09/27/16 13:36; Start 09/27/16 at 07:15; Stop 09/27/16 at 08: 14; Status DC Furosemide (Lasix) 40 mg 1X ONCE IVP Last administered on 6/5/17at 13:20; Start 09/27/16 at 11:00; Stop 09/27/16 at 11:01; Status DC Lidocaine HCl (Lidocaine Pf 2% Vial) 5 ml STK-MED ONCE .ROUTE ; Start 09/27/16 at 11:42; Stop 09/27/16 at 11:43; Status DC Ondansetron HCl (Zofran) 4 mg STK-MED ONCE .ROUTE ; Start 09/27/16 at 11:42; Stop 09/27/16 at 11:43; Status DC Famotidine (Pepcid) 20 mg STK-MED ONCE .ROUTE ; Start 09/27/16 at 11:42; Stop 09/27/16 at 11:43; Status DC Dexamethasone Sodium Phosphate (Decadron) 20 mg STK-MED ONCE .ROUTE ; Start 09/27 at 11:42; Stop 09/27/16 at 11:43; Status DC Propofol 20 ml @ As Directed STK-MED ONCE IV ; Start 09/27/16 at 11:42; Stop 09/27 at 11:43; Status DC Rocuronium Grant (Zemuron) 50 mg STK-MED ONCE .ROUTE ; Start 09/27/16 at 11:45 ; Stop 09/27/16 at 11:46; Status DC Fentanyl Citrate (Fentanyl 5ml Vial) 250 mcg STK-MED ONCE .ROUTE ; Start at 11:46; Stop 09/27/16 at 11:47; Status DC Cellulose 1 each STK-MED ONCE .ROUTE ; Start 09/27/16 at 12:04; Stop 09/27/16 at 12:05; Status DC Bupivacaine HCl (Marcaine 0.25%) 50 ml STK-MED ONCE .ROUTE ; Start 09/27/16 at 12 :04; Stop 09/27/16 at 12:05; Status DC Iohexol (Omnipaque 300 Mg/ml) 100 ml STK-MED ONCE .ROUTE ; Start 09/27/16 at 12: 05; Stop 09/27/16 at 12:06; Status DC Gelatin (Gelfoam Size 100) 1 each STK-MED ONCE .ROUTE ; Start 09/27/16 at 12:05 ; Stop 09/27/16 at 12:06; Status DC Papaverine HCl 60 mg STK-MED ONCE .ROUTE ; Start 09/27/16 at 12:05; Stop 09/27/16 at 12:06; Status DC Thrombin 20,000 unit STK-MED ONCE TP ; Start 09/27/16 at 12:05; Stop 09/27/16 at 12:06; Status DC Lidocaine HCl 1 ml STK-MED ONCE .ROUTE ; Start 09/27/16 at 12:35; Stop 09/27/16 at 12:36; Status DC Ringer's Solution 1,000 ml @ 75 mls/hr [id number] IV Last administered on 17:03; Start 09/27/16 at 13:30; Stop 09/28/16 at 12:44; Status DC Furosemide (Lasix) 40 mg STK-MED ONCE .ROUTE ; Start 09/27/16 at 13:34; Stop 09/27 at 13:35; Status DC Heparin Sodium (Porcine) (Heparin Sodium) 10,000 unit STK-MED ONCE .ROUTE ; Start 09/27/16 at 14:29; Stop 09/27/16 at 14:30; Status DC Glycopyrrolate (Robinul) 1 mg STK-MED ONCE .ROUTE ; Start 09/27/16 at 16:00; Stop 09/27/16 at 16:01; Status DC Neostigmine Methylsulfate 5 mg STK-MED ONCE .ROUTE ; Start 09/27/16 at 16:00; Stop 09/27/16 at 16:01; Status DC Desflurane (Suprane) 90 ml STK-MED ONCE IH ; Start 09/27/16 at 16:00; Stop at 16:01; Status DC Bacitracin 14 margie STK-MED ONCE TP Last administered on 09/27/16 16:12; Start at 16:14; Stop 09/27/16 at 16:15; Status DC Propofol 20 ml @ As Directed STK-MED ONCE IV ; Start 09/27/16 at 16:28; Stop 09/27 at 16:29; Status DC Fentanyl Citrate (Fentanyl 2ml Vial) 25 mcg PRN Q5MIN PRN IV Acute Pain; Start 09/27/16 at 16:45; Stop 09/28/16 at 16:44; Status DC Fentanyl Citrate (Fentanyl 2ml Vial) 50 mcg PRN Q5MIN PRN IV Acute Pain Last administered on 09/27/16 17:21; Start 09/27/16 at 16:45; Stop 09/28/16 at 16:44; Status DC Morphine Sulfate 2 mg PRN Q10MIN PRN IV Mild Pain Last administered on 17:00; Start 09/27/16 at 16:45; Stop 09/28/16 at 16:44; Status DC Hydromorphone HCl (Dilaudid) 0.5 mg PRN Q10MIN PRN IV Moderate to severe pain; Start 09/27/16 at 16:45; Stop 09/28/16 at 16:44; Status DC Ondansetron HCl (Zofran) 4 mg PRN Q6HRS PRN IV Nausea, 2nd Choice; Start at 16:45; Stop 09/28/16 at 16:44; Status DC Prochlorperazine Edisylate (Compazine) 5 mg PRN Q6HRS PRN IV Nausea/Vomiting, 2nd Choice; Start 09/27/16 at 16:45; Stop 09/28/16 at 16:44; Status DC Haloperidol Lactate (Haldol) 5 mg STK-MED ONCE .ROUTE ; Start 09/27/16 at 17:28; Stop 09/27/16 at 17:29; Status DC Haloperidol Lactate (Haldol) 2.5 mg 1X PACU PRN IVP AGITATION Last administered on 09/27/16 18:07; Start 09/27/16 at 17:30; Stop 09/28/16 at 15:58; Status DC Furosemide (Lasix) 80 mg 1X ONCE IVP Last administered on 09/28/16 11:19; Start 09/28/16 at 11:00; Stop 09/28/16 at 11:01; Status DC Cefazolin Sodium/ Dextrose 50 ml @ 100 mls/hr 1X PREOP PRN IV [employer]; Start 09/30/16 at 06:00; Stop 09/30/16 at 08:00; Status DC Albuterol/ Ipratropium (Duoneb) 3 ml 1X ONCE NEB Last administered on 00:07; Start 09/29/16 at 00:00; Stop 09/29/16 at 00:12; Status DC Fentanyl Citrate (Fentanyl 2ml Vial) 25 mcg PRN Q5MIN PRN IV MILD PAIN; Start 09/30/16 at 07:00; Stop 10/01/16 at 06:59; Status DC Fentanyl Citrate (Fentanyl 2ml Vial) 50 mcg PRN Q5MIN PRN IV MODERATE PAIN Last administered on 09/30/16 16:19; Start 09/30/16 at 07:00; Stop 10/01/16 at 06: 59; Status DC Morphine Sulfate 1 mg PRN Q10MIN PRN IV SEVERE PAIN; Start 09/30/16 at 07:00; Stop 10/01/16 at 06:59; Status DC Ringer's Solution 1,000 ml @ 0 mls/hr Q0M IV ; Start 09/30/16 at 07:00; Stop 09/30/16 at 18:59; Status DC Lidocaine HCl 2 ml PRN 1X PRN ID PRIOR TO IV START; Start 09/30/16 at 07:00; Stop 10/01/16 at 06:59; Status DC Hydromorphone HCl (Dilaudid) 0.5 mg PRN Q10MIN PRN IV SEV PAIN, Second choice; Start 09/30/16 at 07:00; Stop 10/01/16 at 06:59; Status DC Prochlorperazine Edisylate (Compazine) 5 mg PACU PRN PRN IV NAUSEA, MRX1; Start 09/30/16 at 07:00; Stop 10/01/16 at 06:59; Status DC Lidocaine HCl 48 ml/Sodium Bicarbonate 12 meq/Miscellaneous 60 ml @ 60 mls/hr 1X PERIOP ONCE ID Last administered on 09/30/16 14:54; Start 09/30/16 at 06:00 ; Stop 09/30/16 at 06:59; Status DC Cefazolin Sodium/ Dextrose 50 ml @ 100 mls/hr 1X PREOP IV Last administered on 09/30/16 17:02; Start 09/30/16 at 11:45; Stop 10/01/16 at 18:00 Midazolam HCl (Versed) 2 mg STK-MED ONCE .ROUTE ; Start 09/30/16 at 11:45; Stop 09/30/16 at 11:46; Status DC Fentanyl Citrate (Fentanyl 2ml Vial) 100 mcg STK-MED ONCE .ROUTE ; Start at 11:45; Stop 09/30/16 at 11:46; Status DC Propofol 20 ml @ As Directed STK-MED ONCE IV ; Start 09/30/16 at 11:46; Stop 09/30 at 11:47; Status DC Dexamethasone Sodium Phosphate (Decadron) 20 mg STK-MED ONCE .ROUTE ; Start 09/30 at 11:46; Stop 09/30/16 at 11:47; Status DC Ondansetron HCl (Zofran) 4 mg STK-MED ONCE .ROUTE ; Start 09/30/16 at 11:46; Stop 09/30/16 at 11:47; Status DC Lidocaine HCl (Lidocaine Pf 2% Vial) 5 ml STK-MED ONCE .ROUTE ; Start 09/30/16 at 11:46; Stop 09/30/16 at 11:47; Status DC Silver Sulfadiazine (Silvadene) 25 margie STK-MED ONCE TP ; Start 09/30/16 at 13:37 ; Stop 09/30/16 at 13:38; Status DC Dextrose (Dextrose 50%-Water Syringe) 12.5 gm 1X ONCE IV Last administered on 09/30/16 14:07; Start 09/30/16 at 14:00; Stop 09/30/16 at 14:02; Status DC Bacitracin 14 margie STK-MED ONCE TP Last administered on 09/30/16 15:29; Start at 15:06; Stop 09/30/16 at 15:07; Status DC Albuterol Sulfate (Ventolin Neb Soln) 2.5 mg STK-MED ONCE .ROUTE ; Start at 16:05; Stop 09/30/16 at 16:06; Status DC Albuterol Sulfate (Ventolin Neb Soln) 2.5 mg 1X ONCE NEB Last administered on 09/30/16 16:24; Start 09/30/16 at 16:30; Stop 09/30/16 at 16:31; Status DC Albuterol/ Ipratropium (Duoneb) 3 ml RTQID NEB Last administered on 10/01/16 06 :21; Start 09/30/16 at 20:00 Hydralazine HCl (Apresoline) 10 mg PRN Q4HRS PRN IVP for SBP > 170 Last administered on 10/01/16t 03:35; Start 09/30/16 at 17:30 Active Scripts Active Levofloxacin 750 Mg Tablet 1 Tab PO DAILY Levemir Flextouch (Insulin Detemir) 100 Unit/1 Ml Insuln.pen 20 Units SQ QHS 30 Days Novolog Flexpen (Insulin Aspart) 100 Unit/1 Ml Insuln.pen 10 Units SQ TIDAC 30 Days Reported Percocet 5-325 Mg Tablet (Oxycodone/Acetaminophen) 1 Each Tablet 1 Tab PO PRN Q6HRS PRN Advair 100-50 Diskus (Fluticasone/Salmeterol) 1 Each Disk.w.dev 1 Puff IH BID Spiriva Respimat (Tiotropium Grant) 4 Gm Mist.inhal 2.5 Gm IH DAILY Symbicort 160-4.5 Mcg Inhaler (Budesonide/Formoterol Fumarate) 10.2 Gm Hfa.aer.ad 2 Puff IH BID Atorvastatin Calcium 20 Mg Tablet 20 Mg PO HS Lisinopril-Hctz 10-12.5 Mg Tab (Lisinopril/Hydrochlorothiazide) 1 Each Tablet 1 Tab PO DAILY Isosorbide Mononitrate Er (Isosorbide Mononitrate) 120 Mg Tab.er.24h 120 Mg PO DAILY Novolin N (Nph, Human Insulin Isophane) 100 Unit/1 Ml Vial 0 SQ Promethazine-Codeine Syrup (Promethazine Hcl/Codeine) 118 Ml Syrup 5 Ml PO Q4- 6HRS Diltiazem 24HR Cd (Diltiazem Hcl) 240 Mg Cap.er.24h 240 Mg PO DAILY NITROGLYCERIN SubLingual (Nitroglycerin) 0.4 Mg Tab.subl 0.4 Mg SL PRN Q5MIN PRN Atorvastatin Calcium 40 Mg Tablet 40 Mg PO HS Vitals/I & O Vital Sign - Last 24 Hours 09/30/16 09/30/16 09/30/16 09/30/16 11:00 11:27 13:30 15:39 Temp 98.6 98.9 98.6 98.9 Pulse 81 79 Resp 18 16 B/P (MAP) 172/86 (114) 150/73 Pulse Ox 95 93 93 O2 Delivery Room Air Room Air Nasal Cannula Nasal Cannula O2 Flow Rate 2 4 09/30/16 09/30/16 09/30/16 09/30/16 15:39 15:54 15:59 16:10 Temp 97.1 97.1 Pulse 83 78 85 Resp 20 22 20 20 B/P (MAP) 164/90 168/78 205/100 Pulse Ox 94 95 99 94 O2 Delivery Nasal Cannula Nasal Cannula Nasal Cannula Nasal Cannula O2 Flow Rate 4 4 4 09/30/16 09/30/16 09/30/16 09/30/16 16:19 16:25 16:25 16:34 Temp 97.0 97.0 97.0 97.0 Pulse 78 63 67 Resp 20 22 B/P (MAP) 181/112 181/112 168/102 Pulse Ox 100 92 94 O2 Delivery Nasal Cannula Nasal Cannula Nasal Cannula O2 Flow Rate 2.0 2 2 09/30/16 09/30/16 09/30/16 09/30/16 16:40 16:45 16:50 16:50 Temp 97.0 97.0 Pulse 70 68 68 Resp 20 B/P (MAP) 168/102 170/94 (119) 160/92 Pulse Ox 91 92 92 O2 Delivery Nasal Cannula Nasal Cannula Nasal Cannula O2 Flow Rate 2 2.0 2 09/30/16 09/30/16 09/30/16 09/30/16 17:00 17:15 17:30 17:45 Pulse 68 70 69 76 B/P (MAP) 168/104 (125) 172/92 (118) 161/102 (121) 172/97 (122) 09/30/16 09/30/16 09/30/16 09/30/16 19:15 19:20 19:30 20:15 Temp 98.4 98.4 Pulse 74 81 Resp 20 B/P (MAP) 160/78 (105) 183/88 (119) Pulse Ox 98 100 97 O2 Delivery Nasal Cannula Nasal Cannula Nasal Cannula Nasal Cannula O2 Flow Rate 2.0 4.0 2.0 2.0 09/30/16 09/30/16 09/30/16 09/30/16 21:15 22:15 23:00 23:19 Temp 98.3 98.3 Pulse 84 84 87 88 Resp 22 20 22 B/P (MAP) 166/109 (128) 171/82 (111) 187/88 (121) 187/88 Pulse Ox 96 O2 Delivery Nasal Cannula Nasal Cannula Nasal Cannula O2 Flow Rate 2.0 2.0 2.0 09/30/16 10/01/16 10/01/16 10/01/16 23:50 03:25 03:35 06:21 Temp 98.3 98.3 Pulse 95 95 95 Resp 22 B/P (MAP) 164/76 (105) 186/99 (128) 186/99 Pulse Ox 93 O2 Delivery Nasal Cannula Nasal Cannula O2 Flow Rate 2.0 1.0 10/01/16 10/01/16 10/01/16 10/01/16 06:22 06:48 07:50 07:50 Temp 98.6 98.6 Pulse 91 Resp 20 18 23 B/P (MAP) 150/85 (106) Pulse Ox 93 98 90 O2 Delivery Nasal Cannula Nasal Cannula Nasal Cannula Nasal Cannula O2 Flow Rate 1.0 2.0 2.0 2.0 10/01/16 10/01/16 09:19 09:20 Pulse 91 91 B/P (MAP) 150/85 150/85 Intake and Output 09/30/16 09/30/16 10/01/16 15:00 23:00 07:00 Intake Total 1110 ml 120 ml Output Total 650 ml 400 ml 800 ml Balance -650 ml 710 ml -680 ml VIKASH UMANZOR MD Oct 01, 2016 10:05
[2016-10-01 11:04] VITALS: BP 158/87
[2016-10-01] MEDS ORDERED: MORPHINE SULFATE 2 MG/ML DISP.SYRIN. IV PRN (14:45)
--- NOTE | 2016-10-01 14:59 | PDOC ---
L[facility]ER[facility] PICKER 10/01/16 1459: CARDIO Progress Notes Date and Time Date of Service 10/01/16 Time of Evaluation 1415 Subjective Subjective: No Chest Pain, No Palpitations, Other (right foot pain ) Vitals Vitals Vital Signs Date Time Temp Pulse Resp B/P (MAP) Pulse Ox O2 Delivery O2 Flow Rate FiO2 10/01/16 11:12 Nasal Cannula 2.0 10/01/16 11:04 98.2 96 25 158/87 (110) 90 98.2 Weight Weight [ ] Input and Output Intake and Output Intake and Output 10/01/16 07:00 Intake Total 1230 ml Output Total 1850 ml Balance -620 ml Intake Oral 480 ml IV Total 750 ml Output Urine Total 1850 ml Laboratory Labs Laboratory Tests Test 09/30/16 15:43 09/30/16 17:42 09/30/16 21:31 09/30/16 23:25 Glucose (Fingerstick) 90 mg/dL (70-99) 84 mg/dL (70-99) 205 mg/dL (70-99) Nasal Screen MRSA (PCR) Negative (Negative) Test 10/01/16 05:40 10/01/16 08:14 10/01/16 12:06 White Blood Count 10.3 x10^3/uL (4.0-11.0) Red Blood Count 3.39 x10^6/uL (4.30-5.70) Hemoglobin 9.8 g/dL (13.0-17.5) Hematocrit 29.8 % (39.0-53.0) Mean Corpuscular Volume 88 fL (79-100) Mean Corpuscular Hemoglobin 29 pg (25-35) Mean Corpuscular Hemoglobin Concent 33 g/dL (31-37) Red Cell Distribution Width 16.9 % (11.5-14.5) Platelet Count 303 x10^3/uL (140-400) Neutrophils (%) (Auto) 76 % (31-73) Lymphocytes (%) (Auto) 10 % (24-48) Monocytes (%) (Auto) 12 % (0-9) Eosinophils (%) (Auto) 1 % (0-3) Basophils (%) (Auto) 1 % (0-3) Neutrophils # (Auto) 7.9 x10^3uL (1.8-7.7) Lymphocytes # (Auto) 1.1 x10^3/uL (1.0-4.8) Monocytes # (Auto) 1.2 x10^3/uL (0.0-1.1) Eosinophils # (Auto) 0.1 x10^3/uL (0.0-0.7) Basophils # (Auto) 0.1 x10^3/uL (0.0-0.2) Sodium Level 137 mmol/L (136-145) Potassium Level 4.4 mmol/L (3.5-5.1) Chloride Level 102 mmol/L (98-107) Carbon Dioxide Level 28 mmol/L (21-32) Anion Gap 7 (6-14) Blood Urea Nitrogen 46 mg/dL (8-26) Creatinine 2.0 mg/dL (0.7-1.3) Estimated GFR (Cockcroft-Gault) 39.7 Glucose Level 209 mg/dL (70-99) Calcium Level 8.5 mg/dL (8.5-10.1) Glucose (Fingerstick) 162 mg/dL (70-99) 175 mg/dL (70-99) Microbiology Micro Microbiology 09/22/16 Blood Culture - Final, Complete NO GROWTH AFTER 5 DAYS 09/30/16 Gram Stain - Final, Complete Physical Exam HEENT: Neck Supple W Full Motion Chest: Symmetric LUNGS: Other (bibasila crackles, RLE incision well-approximated with pierre intact. DRSG intact to right foot ) Heart: S1S2, RRR, murmurs (soft systolic murmur) Abdomen: Soft N/T Extremities: Other (2+ RLE edema. ) Neurology: alert, follow commands Assessment Assessment 1. Acute on chronic diastolic CHF 2. PAD s/p right popliteal to dorsalis pedis bypass 3. HTN 4. Anemia 5. BASIM on CKD 6. DM2 7. HLP 8. 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 Monitor renal function. Reassess fluid status/need for additional diuresis in am. Continue supportive care. Post op management per vascular sx team CLEO JUAREZ MD 10/01/16 1702: CARDIO Progress Notes Plan Plan Pt. seen and examined. agree with above [employer] WORK[employer]PRENTICE note. No acute events overnight. Today seems more confused per nursing report. No chest pain. Decreased breath sounds at the bases. Being followed by pulmonary labs reviewed, cr stable. Continue low dose diuresis. W/u of fever etc per primary team Will follow along peripherally. LISS PIERCE APRN Oct 01, 2016 14:59 CLEO JUAREZ MD Oct 01, 2016 17:02
[2016-10-01 15:00] VITALS: BP 155/81
--- NOTE | 2016-10-01 15:05 | PDOC ---
PULMONARY PROGRESS NOTES Subjective PT NOT MORE SOA Vitals Vital Signs Date Time Temp Pulse Resp B/P (MAP) Pulse Ox O2 Delivery O2 Flow Rate FiO2 10/01/16 11:12 Nasal Cannula 2.0 10/01/16 11:04 98.2 96 25 158/87 (110) 90 98.2 ROS: No Nausea, No Chest Pain, No Abdominal Pain, No Increase Cough General: Alert, No acute distress HEENT: Other Lungs: Clear, Other (bl decreased bs) Cardiovascular: S1, S2 Abdomen: Soft, Non-tender, Other Extremities: Other Labs Laboratory Tests Test 09/29/16 17:06 09/29/16 20:39 09/30/16 06:00 09/30/16 08:26 Glucose (Fingerstick) 189 mg/dL (70-99) 159 mg/dL (70-99) 97 mg/dL (70-99) Sodium Level 139 mmol/L (136-145) Potassium Level 4.1 mmol/L (3.5-5.1) Chloride Level 103 mmol/L (98-107) Carbon Dioxide Level 30 mmol/L (21-32) Anion Gap 6 (6-14) Blood Urea Nitrogen 52 mg/dL (8-26) Creatinine 2.2 mg/dL (0.7-1.3) Estimated GFR (Cockcroft-Gault) 35.6 Glucose Level 101 mg/dL (70-99) Calcium Level 8.6 mg/dL (8.5-10.1) Test 09/30/16 11:32 09/30/16 13:41 09/30/16 14:27 09/30/16 15:43 Glucose (Fingerstick) 96 mg/dL (70-99) 74 mg/dL (70-99) 107 mg/dL (70-99) 90 mg/dL (70-99) Test 09/30/16 17:42 09/30/16 21:31 09/30/16 23:25 10/01/16 05:40 Glucose (Fingerstick) 84 mg/dL (70-99) 205 mg/dL (70-99) Nasal Screen MRSA (PCR) Negative (Negative) White Blood Count 10.3 x10^3/uL (4.0-11.0) Red Blood Count 3.39 x10^6/uL (4.30-5.70) Hemoglobin 9.8 g/dL (13.0-17.5) Hematocrit 29.8 % (39.0-53.0) Mean Corpuscular Volume 88 fL (79-100) Mean Corpuscular Hemoglobin 29 pg (25-35) Mean Corpuscular Hemoglobin Concent 33 g/dL (31-37) Red Cell Distribution Width 16.9 % (11.5-14.5) Platelet Count 303 x10^3/uL (140-400) Neutrophils (%) (Auto) 76 % (31-73) Lymphocytes (%) (Auto) 10 % (24-48) Monocytes (%) (Auto) 12 % (0-9) Eosinophils (%) (Auto) 1 % (0-3) Basophils (%) (Auto) 1 % (0-3) Neutrophils # (Auto) 7.9 x10^3uL (1.8-7.7) Lymphocytes # (Auto) 1.1 x10^3/uL (1.0-4.8) Monocytes # (Auto) 1.2 x10^3/uL (0.0-1.1) Eosinophils # (Auto) 0.1 x10^3/uL (0.0-0.7) Basophils # (Auto) 0.1 x10^3/uL (0.0-0.2) Sodium Level 137 mmol/L (136-145) Potassium Level 4.4 mmol/L (3.5-5.1) Chloride Level 102 mmol/L (98-107) Carbon Dioxide Level 28 mmol/L (21-32) Anion Gap 7 (6-14) Blood Urea Nitrogen 46 mg/dL (8-26) Creatinine 2.0 mg/dL (0.7-1.3) Estimated GFR (Cockcroft-Gault) 39.7 Glucose Level 209 mg/dL (70-99) Calcium Level 8.5 mg/dL (8.5-10.1) Test 10/01/16 08:14 10/01/16 12:06 Glucose (Fingerstick) 162 mg/dL (70-99) 175 mg/dL (70-99) Laboratory Tests Test 09/30/16 15:43 09/30/16 17:42 09/30/16 21:31 09/30/16 23:25 Glucose (Fingerstick) 90 mg/dL (70-99) 84 mg/dL (70-99) 205 mg/dL (70-99) Nasal Screen MRSA (PCR) Negative (Negative) Test 10/01/16 05:40 10/01/16 08:14 10/01/16 12:06 White Blood Count 10.3 x10^3/uL (4.0-11.0) Red Blood Count 3.39 x10^6/uL (4.30-5.70) Hemoglobin 9.8 g/dL (13.0-17.5) Hematocrit 29.8 % (39.0-53.0) Mean Corpuscular Volume 88 fL (79-100) Mean Corpuscular Hemoglobin 29 pg (25-35) Mean Corpuscular Hemoglobin Concent 33 g/dL (31-37) Red Cell Distribution Width 16.9 % (11.5-14.5) Platelet Count 303 x10^3/uL (140-400) Neutrophils (%) (Auto) 76 % (31-73) Lymphocytes (%) (Auto) 10 % (24-48) Monocytes (%) (Auto) 12 % (0-9) Eosinophils (%) (Auto) 1 % (0-3) Basophils (%) (Auto) 1 % (0-3) Neutrophils # (Auto) 7.9 x10^3uL (1.8-7.7) Lymphocytes # (Auto) 1.1 x10^3/uL (1.0-4.8) Monocytes # (Auto) 1.2 x10^3/uL (0.0-1.1) Eosinophils # (Auto) 0.1 x10^3/uL (0.0-0.7) Basophils # (Auto) 0.1 x10^3/uL (0.0-0.2) Sodium Level 137 mmol/L (136-145) Potassium Level 4.4 mmol/L (3.5-5.1) Chloride Level 102 mmol/L (98-107) Carbon Dioxide Level 28 mmol/L (21-32) Anion Gap 7 (6-14) Blood Urea Nitrogen 46 mg/dL (8-26) Creatinine 2.0 mg/dL (0.7-1.3) Estimated GFR (Cockcroft-Gault) 39.7 Glucose Level 209 mg/dL (70-99) Calcium Level 8.5 mg/dL (8.5-10.1) Glucose (Fingerstick) 162 mg/dL (70-99) 175 mg/dL (70-99) Medications Active Scripts Medications Dose Route/Sig Max Daily Dose Days Date Category Levofloxacin 750 Mg Tablet 1 Tab PO DAILY 09/21/16 Rx Percocet 5-325 Mg Tablet (Oxycodone/Acetaminophen) 1 Each Tablet 1 Tab PO PRN Q6HRS PRN 07/30/16 Reported Advair 100-50 Diskus (Fluticasone/Salmeterol) 1 Each Disk.w.dev 1 Puff IH BID 06/21/16 Reported Spiriva Respimat (Tiotropium Liberty) 4 Gm Mist.inhal 2.5 Gm IH DAILY 06/21/16 Reported Symbicort 160-4.5 Mcg Inhaler (Budesonide/Formoterol Fumarate) 10.2 Gm Hfa.aer.ad 2 Puff IH BID 06/21/16 Reported Atorvastatin Calcium 20 Mg Tablet 20 Mg PO HS 06/21/16 Reported Lisinopril-Hctz 10-12.5 Mg Tab (Lisinopril/Hydrochlorothiazide) 1 Each Tablet 1 Tab PO DAILY 06/21/16 Reported Isosorbide Mononitrate Er (Isosorbide Mononitrate) 120 Mg Tab.er.24h 120 Mg PO DAILY 06/21/16 Reported Levemir Flextouch (Insulin Detemir) 100 Unit/1 Ml Insuln.pen 20 Units SQ QHS 30 11/24/15 Rx Novolog Flexpen (Insulin Aspart) 100 Unit/1 Ml Insuln.pen 10 Units SQ TIDAC 30 11/24/15 Rx Novolin N (Nph, Human Insulin Isophane) 100 Unit/1 Ml Vial 0 SQ 11/18/15 Reported Promethazine-Codeine Syrup (Promethazine Hcl/Codeine) 118 Ml Syrup 5 Ml PO Q4-6HRS 11/18/15 Reported Diltiazem 24HR Cd (Diltiazem Hcl) 240 Mg Cap.er.24h 240 Mg PO DAILY 11/18/15 Reported NITROGLYCERIN SubLingual (Nitroglycerin) 0.4 Mg Tab.subl 0.4 Mg SL PRN Q5MIN PRN 11/18/15 Reported Atorvastatin Calcium 40 Mg Tablet 40 Mg PO HS 11/18/15 Reported Impression . 1. Acute/Chronic resp failure multifactorial/COPD 2. Acute encephalopathy improved 3. History of extensive pulmonary embolism, resulting in shock in June. Status post treatment with anticoagulation Xarelto with last CT angiogram done on 2016 has shown resolution of pulmonary embolism.He is s/p IVC filter. 4. History of IVC filter placement in June. 5. 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 6. Abnormal CXR with mild CHF 7. renal failure, 8. Anemia 9. PVD Plan . resp status is compensated, PRN BD PT/OT no desktop operator anticoagulation poor candidate DOUGIE RIVAS MD Oct 01, 2016 15:05
[2016-10-01] MEDS ORDERED: FUROSEMIDE 40 MG/4 ML VIAL. IVP ONE (15:15)
[2016-10-01] MEDS: amLODIPine BESYLATE 5 MG TABLET PO SCH (17:04)
[2016-10-01 19:40] VITALS: BP 179/86
[2016-10-01] MEDS: ATORVASTATIN CALCIUM 40 MG TABLET. PO SCH (21:47)
[2016-10-01] MEDS: DARBEPOETIN ALFA 60 MCG/0.3 ML DISP.SYRIN. SQ SCH (21:48)
[2016-10-01] MEDS: INSULIN DETEMIR 300 UNITS/3 ML INSULN.PEN. SQ SCH (21:53)
[2016-10-01 23:41] VITALS: BP 163/79
--- NOTE | 2016-10-01 23:43 | PDOC ---
Provider Note Provider Note RENAL F/U : KIRIT S : Sitting up. Vascular surgery procedure today. O : VSS Afebrile. Neck : Supple Lungs : Non labored. CVS : RRR Abd : Benign in appearance, without distention. Neuro : Awake. Labs reviewed. A/P : ARF/ATN HTN w CKD III EDEMA CHF. Cr better. Vascular surgery today. Supportive care. DENIS BETH MD Oct 01, 2016 23:43
[2016-10-02 03:47] VITALS: BP 176/91
[2016-10-02] MEDS: traMADol 50 MG TABLET PO PRN (03:53)
[2016-10-02] MEDS: hydrALAZINE 20 MG/ML VIAL. IVP PRN (03:54)
[2016-10-02 04:13] LABS: CALCIUM 8.7 mg/dL (8.5-10.1); CREATININE 1.8 mg/dL (0.7-1.3); GFR 44.9; MAGNESIUM 2.1 mg/dL (1.8-2.4); POTASSIUM 4.1 mmol/L (3.5-5.1)
[2016-10-02 07:00] VITALS: BP 157/79
[2016-10-02] MEDS: IPRATRPIUM/ALBUTEROL 0.5/2.5MG 3 ML NEBU. NEB SCH ×4 (07:40→20:01)
[2016-10-02] MEDS: BUDESONIDE 0.5 MG/2 ML NEBU. NEB SCH ×2 (07:40→20:01)
[2016-10-02] MEDS: INSULIN ASPART 300 UNITS/3 ML INSULN.PEN SQ SCH ×3 (08:00→17:27)
--- NOTE | 2016-10-02 08:36 | PDOC ---
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 wound care. HX bilateral PE with cardiac arrest ([facility] 2017) sec to PE COPD on home Oxygen DM2; insulin with HYPOGLYCEMIA: SSI with Levemir Renal failure: nephrology following. appreciate their recommendatons. HTN not controlled : prn hydralazine, continue current medications. medications. Diastolic heart failure: stable. Intractable pain : PRN iv morphine with [place] Prognosis guarded labs reviewed. History of Present Illness History of Present Illness pain Controlled HTN controlled. sitting in chair watching TV. Vitals Vitals Vital Signs Date Time Temp Pulse Resp B/P (MAP) Pulse Ox O2 Delivery O2 Flow Rate FiO2 10/02/16 07:40 Nasal Cannula 2.0 10/02/16 07:00 98.0 84 22 157/79 (105) 100 98.0 Physical Exam General: Alert, Oriented X3, Other Heart: Regular rate, Normal S1, Normal S2, Other (3/6 systolic murmur to LLS border) Lungs: Clear, Other Abdomen: Soft, No tenderness Extremities: No clubbing, No cyanosis, Other Skin: No rashes Labs LABS Laboratory Tests Test 10/01/16 12:06 10/01/16 16:12 10/01/16 20:38 10/02/16 04:00 Glucose (Fingerstick) 175 mg/dL (70-99) 153 mg/dL (70-99) 168 mg/dL (70-99) Sodium Level 140 mmol/L (136-145) Potassium Level 4.1 mmol/L (3.5-5.1) Chloride Level 103 mmol/L (98-107) Carbon Dioxide Level 31 mmol/L (21-32) Anion Gap 6 (6-14) Blood Urea Nitrogen 42 mg/dL (8-26) Creatinine 1.8 mg/dL (0.7-1.3) Estimated GFR (Cockcroft-Gault) 44.9 Glucose Level 75 mg/dL (70-99) Calcium Level 8.7 mg/dL (8.5-10.1) Magnesium Level 2.1 mg/dL (1.8-2.4) Test 10/02/16 06:34 10/02/16 07:49 Glucose (Fingerstick) 66 mg/dL (70-99) 104 mg/dL (70-99) Assessment and Plan Assessmemt and Plan Problems Medical Problems: (1) Hypoglycemia Status: Acute Problems: Comment Review of Relevant I have reviewed the following items valerie (where applicable) has been applied. Labs Laboratory Tests Test 09/30/16 11:32 09/30/16 13:41 09/30/16 14:27 09/30/16 15:43 Glucose (Fingerstick) 96 mg/dL (70-99) 74 mg/dL (70-99) 107 mg/dL (70-99) 90 mg/dL (70-99) Test 09/30/16 17:42 09/30/16 21:31 09/30/16 23:25 10/01/16 05:40 Glucose (Fingerstick) 84 mg/dL (70-99) 205 mg/dL (70-99) Nasal Screen MRSA (PCR) Negative (Negative) White Blood Count 10.3 x10^3/uL (4.0-11.0) Red Blood Count 3.39 x10^6/uL (4.30-5.70) Hemoglobin 9.8 g/dL (13.0-17.5) Hematocrit 29.8 % (39.0-53.0) Mean Corpuscular Volume 88 fL (79-100) Mean Corpuscular Hemoglobin 29 pg (25-35) Mean Corpuscular Hemoglobin Concent 33 g/dL (31-37) Red Cell Distribution Width 16.9 % (11.5-14.5) Platelet Count 303 x10^3/uL (140-400) Neutrophils (%) (Auto) 76 % (31-73) Lymphocytes (%) (Auto) 10 % (24-48) Monocytes (%) (Auto) 12 % (0-9) Eosinophils (%) (Auto) 1 % (0-3) Basophils (%) (Auto) 1 % (0-3) Neutrophils # (Auto) 7.9 x10^3uL (1.8-7.7) Lymphocytes # (Auto) 1.1 x10^3/uL (1.0-4.8) Monocytes # (Auto) 1.2 x10^3/uL (0.0-1.1) Eosinophils # (Auto) 0.1 x10^3/uL (0.0-0.7) Basophils # (Auto) 0.1 x10^3/uL (0.0-0.2) Sodium Level 137 mmol/L (136-145) Potassium Level 4.4 mmol/L (3.5-5.1) Chloride Level 102 mmol/L (98-107) Carbon Dioxide Level 28 mmol/L (21-32) Anion Gap 7 (6-14) Blood Urea Nitrogen 46 mg/dL (8-26) Creatinine 2.0 mg/dL (0.7-1.3) Estimated GFR (Cockcroft-Gault) 39.7 Glucose Level 209 mg/dL (70-99) Calcium Level 8.5 mg/dL (8.5-10.1) Test 10/01/16 08:14 10/01/16 12:06 10/01/16 16:12 10/01/16 20:38 Glucose (Fingerstick) 162 mg/dL (70-99) 175 mg/dL (70-99) 153 mg/dL (70-99) 168 mg/dL (70-99) Test 10/02/16 04:00 10/02/16 06:34 10/02/16 07:49 Sodium Level 140 mmol/L (136-145) Potassium Level 4.1 mmol/L (3.5-5.1) Chloride Level 103 mmol/L (98-107) Carbon Dioxide Level 31 mmol/L (21-32) Anion Gap 6 (6-14) Blood Urea Nitrogen 42 mg/dL (8-26) Creatinine 1.8 mg/dL (0.7-1.3) Estimated GFR (Cockcroft-Gault) 44.9 Glucose Level 75 mg/dL (70-99) Calcium Level 8.7 mg/dL (8.5-10.1) Magnesium Level 2.1 mg/dL (1.8-2.4) Glucose (Fingerstick) 66 mg/dL (70-99) 104 mg/dL (70-99) Laboratory Tests Test 10/01/16 12:06 10/01/16 16:12 10/01/16 20:38 10/02/16 04:00 Glucose (Fingerstick) 175 mg/dL (70-99) 153 mg/dL (70-99) 168 mg/dL (70-99) Sodium Level 140 mmol/L (136-145) Potassium Level 4.1 mmol/L (3.5-5.1) Chloride Level 103 mmol/L (98-107) Carbon Dioxide Level 31 mmol/L (21-32) Anion Gap 6 (6-14) Blood Urea Nitrogen 42 mg/dL (8-26) Creatinine 1.8 mg/dL (0.7-1.3) Estimated GFR (Cockcroft-Gault) 44.9 Glucose Level 75 mg/dL (70-99) Calcium Level 8.7 mg/dL (8.5-10.1) Magnesium Level 2.1 mg/dL (1.8-2.4) Test 10/02/16 06:34 10/02/16 07:49 Glucose (Fingerstick) 66 mg/dL (70-99) 104 mg/dL (70-99) Microbiology 09/22/16 Blood Culture - Final, Complete NO GROWTH AFTER 5 DAYS 09/30/16 Gram Stain - Final, Complete Medications Current Medications Dextrose (Dextrose 50%-Water Syringe) 25 gm STK-MED ONCE IV ; Start 09/22/16 at 10:39; Stop 09/22/16 at 10:40; Status DC Dextrose 500 ml @ 30 mls/hr 1X ONCE IV Last administered on 09/22/16 11:52; Start 09/22/16 at 11:45; Stop 09/22/16 at 17:38; Status DC Dextrose (Dextrose 50%-Water Syringe) 25 gm STK-MED ONCE IV ; Start 09/22/16 at 11:45; Stop 09/22/16 at 11:46; Status DC Dextrose (Dextrose 50%-Water Syringe) 25 gm 1X ONCE IV Last administered on 10:45; Start 09/22/16 at 12:00; Stop 09/22/16 at 12:01; Status DC Dextrose (Dextrose 50%-Water Syringe) 25 gm 1X ONCE IV Last administered on 11:40; Start 09/22/16 at 12:00; Stop 09/22/16 at 12:01; Status DC Nitroglycerin (Nitrostat) 0.4 mg PRN Q5MIN PRN SL CHEST PAIN Last administered on 09/24/16 03:18; Start 09/22/16 at 12:00 Ondansetron HCl (Zofran) 4 mg PRN Q8HRS PRN IV NAUSEA/VOMITING; Start 09/22/16 at 12:30; Stop 09/23/16 at 12:29; Status DC Levofloxacin/ Dextrose (Levaquin Per Pharmacy) 1 each PRN DAILY PRN MC SEE COMMENTS; Start 09/22/16 at 12:45; Stop 09/25/16 at 15:18; Status DC Levofloxacin/ Dextrose 150 ml @ 100 mls/hr Q48H IV Last administered on 14:46; Start 09/22/16 at 13:00; Stop 10/01/16 at 14:42; Status DC Sodium Chloride 500 ml @ 1,000 mls/hr 1X ONCE IV Last administered on 13:10; Start 09/22/16 at 13:15; Stop 09/22/16 at 13:44; Status DC Dextrose (Dextrose 50%-Water Syringe) 25 gm 1X ONCE IV Last administered on 13:11; Start 09/22/16 at 13:15; Stop 09/22/16 at 13:16; Status DC Insulin Aspart (NovoLOG) 0-5 UNITS TIDWMEALS SQ Last administered on 09/22/16 18:17; Start 09/22/16 at 17:00; Stop 09/23/16 at 09:23; Status DC Dextrose (Dextrose 50%-Water Syringe) 12.5 gm PRN Q15MIN PRN IV SEE COMMENTS Last administered on 09/22/16 13:58; Start 09/22/16 at 14:00 Labetalol HCl (Normodyne) 20 mg PRN Q2HR PRN IVP HYPERTENSION, SEE COMMENTS Last administered on 09/30/16 16:25; Start 09/22/16 at 14:15; Stop 09/30/16 at 17 :24; Status DC Amlodipine Besylate (Norvasc) 10 mg DAILY PO ; Start 09/23/16 at 09:00; Status UNV Atorvastatin Calcium (Lipitor) 40 mg HS PO Last administered on 10/01/16 21:47 ; Start 09/22/16 at 21:00 Diltiazem HCl (Cardizem 24hr Cd) 240 mg DAILY PO Last administered on 10/01/16 09:20; Start 09/22/16 at 15:00 Isosorbide Mononitrate (Imdur) 120 mg DAILY PO Last administered on 10/01/16 09 :19; Start 09/22/16 at 15:00 Albuterol/ Ipratropium (Duoneb) 3 ml STK-MED ONCE .ROUTE ; Start 09/22/16 at 15: 06; Stop 09/22/16 at 15:07; Status DC Albuterol/ Ipratropium (Duoneb) 3 ml RTQID NEB Last administered on 09/30/16 16 :29; Start 09/22/16 at 16:00; Stop 09/30/16 at 16:50; Status DC Budesonide (Pulmicort) 0.5 mg RTBID NEB Last administered on 10/02/16 07:40; Start 09/22/16 at 20:00 Magnesium Sulfate/ Dextrose 50 ml @ 25 mls/hr PRN DAILY PRN IV for Mag < 1.7 on am labs; Start 09/22/16 at 15:45 Sodium Chloride 1,000 ml @ 100 mls/hr Q10H IV Last administered on 09/23/16 01 :35; Start 09/22/16 at 15:45; Stop 09/23/16 at 07:45; Status DC Dextrose 1,000 ml @ 50 mls/hr Q20H IV Last administered on 09/22/16 17:39; Start 09/22/16 at 17:45; Stop 09/23/16 at 07:45; Status DC Insulin Aspart (NovoLOG) 0-9 UNITS TIDWMEALS SQ Last administered on 10/01/16 13:10; Start 09/23/16 at 12:00 Dextrose (Dextrose 50%-Water Syringe) 12.5 gm PRN Q15MIN PRN IV SEE COMMENTS; Start 09/23/16 at 09:30; Stop 09/23/16 at 12:56; Status DC Albuterol/ Ipratropium (Duoneb) 3 ml RTQID NEB ; Start 09/23/16 at 12:00; Stop at 12:56; Status DC Prednisone (Prednisone) 60 mg 1X ONCE PO Last administered on 09/23/16 10:00; Start 09/23/16 at 09:30; Stop 09/23/16 at 09:31; Status DC Benzonatate (Tessalon Perle) 100 mg [id number] PO Last administered on 10/01/16 21: 47; Start 09/23/16 at 09:30 Furosemide (Lasix) 20 mg 1X ONCE IVP Last administered on 09/23/16 17:30; Start 09/23/16 at 17:30; Stop 09/23/16 at 17:31; Status DC Furosemide (Lasix) 80 mg 1X ONCE IVP Last administered on 09/24/16 15:56; Start 09/24/16 at 11:00; Stop 09/24/16 at 11:03; Status DC Acetylcysteine (Mucomyst 20% Oral Solution) 1,200 mg BID PO Last administered on 09/26/16 08:51; Start 09/24/16 at 11:30; Stop 09/26/16 at 11:29; Status DC Darbepoetin Arsh (Aranesp) 60 mcg [id number] SQ Last administered on 10/01/16 21: 48; Start 09/24/16 at 21:00 Tramadol HCl (Ultram) 50 mg PRN Q6HRS PRN PO mild pain Last administered on 03:53; Start 09/24/16 at 11:30 Iohexol (Omnipaque 300 Mg/ml) 100 ml STK-MED ONCE .ROUTE ; Start 09/24/16 at 12: 12; Stop 09/24/16 at 12:13; Status DC Lidocaine/Sodium Bicarbonate (Buffered Lidocaine 1%) 20 ml STK-MED ONCE IJ ; Start 09/24/16 at 12:12; Stop 09/24/16 at 12:13; Status DC Midazolam HCl (Versed) 5 mg STK-MED ONCE .ROUTE ; Start 09/24/16 at 12:12; Stop 09/24/16 at 12:13; Status DC Fentanyl Citrate (Fentanyl 5ml Vial) 250 mcg STK-MED ONCE .ROUTE ; Start at 12:12; Stop 09/24/16 at 12:13; Status DC Heparin Sodium/ Sodium Chloride 2,000 ml @ As Directed STK-MED ONCE .ROUTE ; Start 09/24/16 at 12:13; Stop 09/24/16 at 12:14; Status DC Iodixanol (Visipaque 320) 100 ml STK-MED ONCE .ROUTE ; Start 09/24/16 at 12:13; Stop 09/24/16 at 12:14; Status DC Heparin Sodium (Porcine) (Heparin Sodium) 10,000 unit STK-MED ONCE .ROUTE ; Start 09/24/16 at 12:15; Stop 09/24/16 at 12:16; Status DC Insulin Detemir (Levemir) 10 units QHS SQ Last administered on 10/01/16 21:53; Start 09/24/16 at 21:00 Heparin Sodium/ Sodium Chloride 1,000 unit 1X ONCE IART Last administered on 14:52; Start 09/24/16 at 14:00; Stop 09/24/16 at 14:01; Status DC Lidocaine/Sodium Bicarbonate (Buffered Lidocaine 1%) 20 ml 1X ONCE IJ Last administered on 09/24/16 14:00; Start 09/24/16 at 14:00; Stop 09/24/16 at 14:01; Status DC Midazolam HCl (Versed) 5 mg 1X ONCE IV ; Start 09/24/16 at 14:00; Stop 09/24/16 at 14:01; Status DC Fentanyl Citrate (Fentanyl 5ml Vial) 250 mcg 1X ONCE IV ; Start 09/24/16 at 14: 00; Stop 09/24/16 at 14:01; Status DC Iohexol (Omnipaque 300 Mg/ml) 100 ml 1X ONCE IART Last administered on 14:51; Start 09/24/16 at 14:00; Stop 09/24/16 at 14:01; Status DC Iodixanol (Visipaque 320) 100 ml 1X ONCE IART Last administered on 09/24/16 14 :00; Start 09/24/16 at 14:00; Stop 09/24/16 at 14:01; Status DC Heparin Sodium (Porcine) (Heparin Sodium) 4,000 unit 1X ONCE IV Last administered on 09/24/16 14:00; Start 09/24/16 at 14:00; Stop 09/24/16 at 14:01; Status DC Info (Do NOT chart on this entry -- for MONITORING) 1 each PRN DAILY PRN MC SEE COMMENTS; Start 09/24/16 at 14:15; Stop 09/26/16 at 14:14; Status DC Clopidogrel Bisulfate (Plavix) 300 mg 1X ONCE PO Last administered on 16:01; Start 09/24/16 at 15:30; Stop 09/24/16 at 15:31; Status DC Clopidogrel Bisulfate (Plavix) 75 mg [id number] PO Last administered on 09:18; Start 09/25/16 at 08:00; Stop 10/25/16 at 08:00 Ringer's Solution 1,000 ml @ 100 mls/hr Q10H IV ; Start 09/27/16 at 00:01; Stop 09/27/16 at 00:01; Status DC Cefazolin Sodium/ Dextrose 50 ml @ 100 mls/hr 1X PREOP PRN IV SEE COMMENTS Last administered on 09/27/16 13:22; Start 09/27/16 at 06:00; Stop 09/27/16 at 18: 00; Status DC Heparin Sodium (Porcine) 5000 unit/Sodium Chloride 505 ml @ 505 mls/hr 1X PERIOP ONCE IRR Last administered on 09/27/16 13:36; Start 09/27/16 at 07:15; Stop 09/27/16 at 08:14; Status DC Cefazolin Sodium 1 gm/Sodium Chloride 500 ml @ 500 mls/hr 1X PERIOP ONCE IRR Last administered on 09/27/16 13:36; Start 09/27/16 at 07:15; Stop 09/27/16 at 08: 14; Status DC Furosemide (Lasix) 40 mg 1X ONCE IVP Last administered on 09/27/16 13:20; Start 09/27/16 at 11:00; Stop 09/27/16 at 11:01; Status DC Lidocaine HCl (Lidocaine Pf 2% Vial) 5 ml STK-MED ONCE .ROUTE ; Start 09/27/16 at 11:42; Stop 09/27/16 at 11:43; Status DC Ondansetron HCl (Zofran) 4 mg STK-MED ONCE .ROUTE ; Start 09/27/16 at 11:42; Stop 09/27/16 at 11:43; Status DC Famotidine (Pepcid) 20 mg STK-MED ONCE .ROUTE ; Start 09/27/16 at 11:42; Stop 09/27/16 at 11:43; Status DC Dexamethasone Sodium Phosphate (Decadron) 20 mg STK-MED ONCE .ROUTE ; Start 09/27 at 11:42; Stop 09/27/16 at 11:43; Status DC Propofol 20 ml @ As Directed STK-MED ONCE IV ; Start 09/27/16 at 11:42; Stop 09/27 at 11:43; Status DC Rocuronium Hope (Zemuron) 50 mg STK-MED ONCE .ROUTE ; Start 09/27/16 at 11:45 ; Stop 09/27/16 at 11:46; Status DC Fentanyl Citrate (Fentanyl 5ml Vial) 250 mcg STK-MED ONCE .ROUTE ; Start at 11:46; Stop 09/27/16 at 11:47; Status DC Cellulose 1 each STK-MED ONCE .ROUTE ; Start 09/27/16 at 12:04; Stop 09/27/16 at 12:05; Status DC Bupivacaine HCl (Marcaine 0.25%) 50 ml STK-MED ONCE .ROUTE ; Start 09/27/16 at 12 :04; Stop 09/27/16 at 12:05; Status DC Iohexol (Omnipaque 300 Mg/ml) 100 ml STK-MED ONCE .ROUTE ; Start 09/27/16 at 12: 05; Stop 09/27/16 at 12:06; Status DC Gelatin (Gelfoam Size 100) 1 each STK-MED ONCE .ROUTE ; Start 09/27/16 at 12:05 ; Stop 09/27/16 at 12:06; Status DC Papaverine HCl 60 mg STK-MED ONCE .ROUTE ; Start 09/27/16 at 12:05; Stop 09/27/16 at 12:06; Status DC Thrombin 20,000 unit STK-MED ONCE TP ; Start 09/27/16 at 12:05; Stop 09/27/16 at 12:06; Status DC Lidocaine HCl 1 ml STK-MED ONCE .ROUTE ; Start 09/27/16 at 12:35; Stop 09/27/16 at 12:36; Status DC Ringer's Solution 1,000 ml @ 75 mls/hr [id number] IV Last administered on 17:03; Start 09/27/16 at 13:30; Stop 09/28/16 at 12:44; Status DC Furosemide (Lasix) 40 mg STK-MED ONCE .ROUTE ; Start 09/27/16 at 13:34; Stop 09/27 at 13:35; Status DC Heparin Sodium (Porcine) (Heparin Sodium) 10,000 unit STK-MED ONCE .ROUTE ; Start 09/27/16 at 14:29; Stop 09/27/16 at 14:30; Status DC Glycopyrrolate (Robinul) 1 mg STK-MED ONCE .ROUTE ; Start 09/27/16 at 16:00; Stop 09/27/16 at 16:01; Status DC Neostigmine Methylsulfate 5 mg STK-MED ONCE .ROUTE ; Start 09/27/16 at 16:00; Stop 09/27/16 at 16:01; Status DC Desflurane (Suprane) 90 ml STK-MED ONCE IH ; Start 09/27/16 at 16:00; Stop at 16:01; Status DC Bacitracin 14 margie STK-MED ONCE TP Last administered on 09/27/16 16:12; Start at 16:14; Stop 09/27/16 at 16:15; Status DC Propofol 20 ml @ As Directed STK-MED ONCE IV ; Start 09/27/16 at 16:28; Stop 09/27 at 16:29; Status DC Fentanyl Citrate (Fentanyl 2ml Vial) 25 mcg PRN Q5MIN PRN IV Acute Pain; Start 09/27/16 at 16:45; Stop 09/28/16 at 16:44; Status DC Fentanyl Citrate (Fentanyl 2ml Vial) 50 mcg PRN Q5MIN PRN IV Acute Pain Last administered on 09/27/16 17:21; Start 09/27/16 at 16:45; Stop 09/28/16 at 16:44; Status DC Morphine Sulfate 2 mg PRN Q10MIN PRN IV Mild Pain Last administered on 17:00; Start 09/27/16 at 16:45; Stop 09/28/16 at 16:44; Status DC Hydromorphone HCl (Dilaudid) 0.5 mg PRN Q10MIN PRN IV Moderate to severe pain; Start 09/27/16 at 16:45; Stop 09/28/16 at 16:44; Status DC Ondansetron HCl (Zofran) 4 mg PRN Q6HRS PRN IV Nausea, 2nd Choice; Start at 16:45; Stop 09/28/16 at 16:44; Status DC Prochlorperazine Edisylate (Compazine) 5 mg PRN Q6HRS PRN IV Nausea/Vomiting, 2nd Choice; Start 09/27/16 at 16:45; Stop 09/28/16 at 16:44; Status DC Haloperidol Lactate (Haldol) 5 mg STK-MED ONCE .ROUTE ; Start 09/27/16 at 17:28; Stop 09/27/16 at 17:29; Status DC Haloperidol Lactate (Haldol) 2.5 mg 1X PACU PRN IVP AGITATION Last administered on 09/27/16 18:07; Start 09/27/16 at 17:30; Stop 09/28/16 at 15:58; Status DC Furosemide (Lasix) 80 mg 1X ONCE IVP Last administered on 09/28/16 11:19; Start 09/28/16 at 11:00; Stop 09/28/16 at 11:01; Status DC Cefazolin Sodium/ Dextrose 50 ml @ 100 mls/hr 1X PREOP PRN IV DEAN OF ADMISSIONS FOR OR; Start 09/30/16 at 06:00; Stop 09/30/16 at 08:00; Status DC Albuterol/ Ipratropium (Duoneb) 3 ml 1X ONCE NEB Last administered on 00:07; Start 09/29/16 at 00:00; Stop 09/29/16 at 00:12; Status DC Fentanyl Citrate (Fentanyl 2ml Vial) 25 mcg PRN Q5MIN PRN IV MILD PAIN; Start 09/30/16 at 07:00; Stop 10/01/16 at 06:59; Status DC Fentanyl Citrate (Fentanyl 2ml Vial) 50 mcg PRN Q5MIN PRN IV MODERATE PAIN Last administered on 09/30/16 16:19; Start 09/30/16 at 07:00; Stop 10/01/16 at 06: 59; Status DC Morphine Sulfate 1 mg PRN Q10MIN PRN IV SEVERE PAIN; Start 09/30/16 at 07:00; Stop 10/01/16 at 06:59; Status DC Ringer's Solution 1,000 ml @ 0 mls/hr Q0M IV ; Start 09/30/16 at 07:00; Stop 09/30/16 at 18:59; Status DC Lidocaine HCl 2 ml PRN 1X PRN ID PRIOR TO IV START; Start 09/30/16 at 07:00; Stop 10/01/16 at 06:59; Status DC Hydromorphone HCl (Dilaudid) 0.5 mg PRN Q10MIN PRN IV SEV PAIN, Second choice; Start 09/30/16 at 07:00; Stop 10/01/16 at 06:59; Status DC Prochlorperazine Edisylate (Compazine) 5 mg PACU PRN PRN IV NAUSEA, MRX1; Start 09/30/16 at 07:00; Stop 10/01/16 at 06:59; Status DC Lidocaine HCl 48 ml/Sodium Bicarbonate 12 meq/Miscellaneous 60 ml @ 60 mls/hr 1X PERIOP ONCE ID Last administered on 09/30/16t 14:54; Start 09/30/16 at 06:00 ; Stop 09/30/16 at 06:59; Status DC Cefazolin Sodium/ Dextrose 50 ml @ 100 mls/hr 1X PREOP IV Last administered on 09/30/16t 17:02; Start 09/30/16 at 11:45; Stop 10/01/16 at 18:00; Status DC Midazolam HCl (Versed) 2 mg STK-MED ONCE .ROUTE ; Start 09/30/16 at 11:45; Stop 09/30/16 at 11:46; Status DC Fentanyl Citrate (Fentanyl 2ml Vial) 100 mcg STK-MED ONCE .ROUTE ; Start at 11:45; Stop 09/30/16 at 11:46; Status DC Propofol 20 ml @ As Directed STK-MED ONCE IV ; Start 09/30/16 at 11:46; Stop 09/30 at 11:47; Status DC Dexamethasone Sodium Phosphate (Decadron) 20 mg STK-MED ONCE .ROUTE ; Start 09/30 at 11:46; Stop 09/30/16 at 11:47; Status DC Ondansetron HCl (Zofran) 4 mg STK-MED ONCE .ROUTE ; Start 09/30/16 at 11:46; Stop 09/30/16 at 11:47; Status DC Lidocaine HCl (Lidocaine Pf 2% Vial) 5 ml STK-MED ONCE .ROUTE ; Start 09/30/16 at 11:46; Stop 09/30/16 at 11:47; Status DC Silver Sulfadiazine (Silvadene) 25 margie STK-MED ONCE TP ; Start 09/30/16 at 13:37 ; Stop 09/30/16 at 13:38; Status DC Dextrose (Dextrose 50%-Water Syringe) 12.5 gm 1X ONCE IV Last administered on 09/30/16 14:07; Start 09/30/16 at 14:00; Stop 09/30/16 at 14:02; Status DC Bacitracin 14 margie STK-MED ONCE TP Last administered on 09/30/16 15:29; Start at 15:06; Stop 09/30/16 at 15:07; Status DC Albuterol Sulfate (Ventolin Neb Soln) 2.5 mg STK-MED ONCE .ROUTE ; Start at 16:05; Stop 09/30/16 at 16:06; Status DC Albuterol Sulfate (Ventolin Neb Soln) 2.5 mg 1X ONCE NEB Last administered on 09/30/16 16:24; Start 09/30/16 at 16:30; Stop 09/30/16 at 16:31; Status DC Albuterol/ Ipratropium (Duoneb) 3 ml RTQID NEB Last administered on 10/02/16 07:40; Start 09/30/16 at 20:00 Hydralazine HCl (Apresoline) 10 mg PRN Q4HRS PRN IVP for SBP > 170 Last administered on 10/02/16 03:54; Start 09/30/16 at 17:30 Acetaminophen/ Hydrocodone Bitart (Lortab 5/325) 1 tab PRN Q6HRS PRN PO moderate - severe pain; Start 10/01/16 at 14:45 Morphine Sulfate 2 mg PRN Q2HR PRN IV PAIN; Start 10/01/16 at 14:45 Amlodipine Besylate (Norvasc) 5 mg DAILY PO Last administered on 10/01/16 17:04 ; Start 10/01/16 at 15:00 Furosemide (Lasix) 40 mg 1X ONCE IVP Last administered on 10/01/16 17:04; Start 10/01/16 at 15:15; Stop 10/01/16 at 15:16; Status DC Active Scripts Active Levofloxacin 750 Mg Tablet 1 Tab PO DAILY Levemir Flextouch (Insulin Detemir) 100 Unit/1 Ml Insuln.pen 20 Units SQ QHS 30 Days Novolog Flexpen (Insulin Aspart) 100 Unit/1 Ml Insuln.pen 10 Units SQ TIDAC 30 Days Reported Percocet 5-325 Mg Tablet (Oxycodone/Acetaminophen) 1 Each Tablet 1 Tab PO PRN Q6HRS PRN Advair 100-50 Diskus (Fluticasone/Salmeterol) 1 Each Disk.w.dev 1 Puff IH BID Spiriva Respimat (Tiotropium Hope) 4 Gm Mist.inhal 2.5 Gm IH DAILY Symbicort 160-4.5 Mcg Inhaler (Budesonide/Formoterol Fumarate) 10.2 Gm Hfa.aer.ad 2 Puff IH BID Atorvastatin Calcium 20 Mg Tablet 20 Mg PO HS Lisinopril-Hctz 10-12.5 Mg Tab (Lisinopril/Hydrochlorothiazide) 1 Each Tablet 1 Tab PO DAILY Isosorbide Mononitrate Er (Isosorbide Mononitrate) 120 Mg Tab.er.24h 120 Mg PO DAILY Novolin N (Nph, Human Insulin Isophane) 100 Unit/1 Ml Vial 0 SQ Promethazine-Codeine Syrup (Promethazine Hcl/Codeine) 118 Ml Syrup 5 Ml PO Q4- 6HRS Diltiazem 24HR Cd (Diltiazem Hcl) 240 Mg Cap.er.24h 240 Mg PO DAILY NITROGLYCERIN SubLingual (Nitroglycerin) 0.4 Mg Tab.subl 0.4 Mg SL PRN Q5MIN PRN Atorvastatin Calcium 40 Mg Tablet 40 Mg PO HS Vitals/I & O Vital Sign - Last 24 Hours 10/01/16 10/01/16 10/01/16 10/01/16 09:19 09:20 11:04 11:12 Temp 98.2 98.2 Pulse 91 91 96 Resp 25 B/P (MAP) 150/85 150/85 158/87 (110) Pulse Ox 90 O2 Delivery Nasal Cannula Nasal Cannula O2 Flow Rate 2.0 2.0 10/01/16 10/01/16 10/01/16 10/01/16 15:00 16:20 17:04 19:29 Temp 98.8 98.8 Pulse 95 98 Resp 20 B/P (MAP) 155/81 (105) 155/81 Pulse Ox 95 99 O2 Delivery Nasal Cannula Nasal Cannula Nasal Cannula O2 Flow Rate 2.0 2.0 2.0 10/01/16 10/01/16 10/01/16 10/01/16 19:40 21:00 21:48 22:47 Temp 98.4 98.4 Pulse 90 90 Resp 22 B/P (MAP) 179/86 (117) 179/86 Pulse Ox 99 95 O2 Delivery Nasal Cannula Nasal Cannula O2 Flow Rate 2.5 2.0 2.5 10/01/16 10/02/16 10/02/16 10/02/16 23:41 03:47 03:53 03:54 Temp 98.2 98.7 98.2 98.7 Pulse 90 85 85 Resp 22 22 14 B/P (MAP) 163/79 (107) 176/91 (119) 176/91 Pulse Ox 95 99 94 O2 Delivery Room Air Nasal Cannula Nasal Cannula O2 Flow Rate 2.0 10/02/16 10/02/16 10/02/16 04:53 07:00 07:40 Temp 98.0 98.0 Pulse 84 Resp 22 B/P (MAP) 157/79 (105) Pulse Ox 100 O2 Delivery Nasal Cannula Nasal Cannula Nasal Cannula O2 Flow Rate 2.0 Intake and Output 10/01/16 10/01/16 10/02/16 15:00 23:00 07:00 Intake Total 200 ml 100 ml Output Total 800 ml 1545 ml Balance -600 ml -1445 ml VIKASH UMANZOR MD Oct 02, 2016 08:36
--- NOTE | 2016-10-02 08:50 | PDOC ---
PULMONARY PROGRESS NOTES Subjective on 02, sob is better, has occ cough, no pain Vitals Vital Signs Date Time Temp Pulse Resp B/P (MAP) Pulse Ox O2 Delivery O2 Flow Rate FiO2 10/02/16 07:40 Nasal Cannula 2.0 10/02/16 07:00 98.0 84 22 157/79 (105) 100 98.0 ROS: No Nausea, No Chest Pain, No Abdominal Pain, No Increase Cough General: Alert, No acute distress HEENT: Other Lungs: Crackles, Other (bl decreased bs) Cardiovascular: S1, S2 Abdomen: Soft, Non-tender, Other Neuro Exam: Alert Extremities: Other (edema) Skin: Warm Labs Laboratory Tests Test 09/30/16 11:32 09/30/16 13:41 09/30/16 14:27 09/30/16 15:43 Glucose (Fingerstick) 96 mg/dL (70-99) 74 mg/dL (70-99) 107 mg/dL (70-99) 90 mg/dL (70-99) Test 09/30/16 17:42 09/30/16 21:31 09/30/16 23:25 10/01/16 05:40 Glucose (Fingerstick) 84 mg/dL (70-99) 205 mg/dL (70-99) Nasal Screen MRSA (PCR) Negative (Negative) White Blood Count 10.3 x10^3/uL (4.0-11.0) Red Blood Count 3.39 x10^6/uL (4.30-5.70) Hemoglobin 9.8 g/dL (13.0-17.5) Hematocrit 29.8 % (39.0-53.0) Mean Corpuscular Volume 88 fL (79-100) Mean Corpuscular Hemoglobin 29 pg (25-35) Mean Corpuscular Hemoglobin Concent 33 g/dL (31-37) Red Cell Distribution Width 16.9 % (11.5-14.5) Platelet Count 303 x10^3/uL (140-400) Neutrophils (%) (Auto) 76 % (31-73) Lymphocytes (%) (Auto) 10 % (24-48) Monocytes (%) (Auto) 12 % (0-9) Eosinophils (%) (Auto) 1 % (0-3) Basophils (%) (Auto) 1 % (0-3) Neutrophils # (Auto) 7.9 x10^3uL (1.8-7.7) Lymphocytes # (Auto) 1.1 x10^3/uL (1.0-4.8) Monocytes # (Auto) 1.2 x10^3/uL (0.0-1.1) Eosinophils # (Auto) 0.1 x10^3/uL (0.0-0.7) Basophils # (Auto) 0.1 x10^3/uL (0.0-0.2) Sodium Level 137 mmol/L (136-145) Potassium Level 4.4 mmol/L (3.5-5.1) Chloride Level 102 mmol/L (98-107) Carbon Dioxide Level 28 mmol/L (21-32) Anion Gap 7 (6-14) Blood Urea Nitrogen 46 mg/dL (8-26) Creatinine 2.0 mg/dL (0.7-1.3) Estimated GFR (Cockcroft-Gault) 39.7 Glucose Level 209 mg/dL (70-99) Calcium Level 8.5 mg/dL (8.5-10.1) Test 10/01/16 08:14 10/01/16 12:06 10/01/16 16:12 10/01/16 20:38 Glucose (Fingerstick) 162 mg/dL (70-99) 175 mg/dL (70-99) 153 mg/dL (70-99) 168 mg/dL (70-99) Test 10/02/16 04:00 10/02/16 06:34 10/02/16 07:49 Sodium Level 140 mmol/L (136-145) Potassium Level 4.1 mmol/L (3.5-5.1) Chloride Level 103 mmol/L (98-107) Carbon Dioxide Level 31 mmol/L (21-32) Anion Gap 6 (6-14) Blood Urea Nitrogen 42 mg/dL (8-26) Creatinine 1.8 mg/dL (0.7-1.3) Estimated GFR (Cockcroft-Gault) 44.9 Glucose Level 75 mg/dL (70-99) Calcium Level 8.7 mg/dL (8.5-10.1) Magnesium Level 2.1 mg/dL (1.8-2.4) Glucose (Fingerstick) 66 mg/dL (70-99) 104 mg/dL (70-99) Laboratory Tests Test 10/01/16 12:06 10/01/16 16:12 10/01/16 20:38 10/02/16 04:00 Glucose (Fingerstick) 175 mg/dL (70-99) 153 mg/dL (70-99) 168 mg/dL (70-99) Sodium Level 140 mmol/L (136-145) Potassium Level 4.1 mmol/L (3.5-5.1) Chloride Level 103 mmol/L (98-107) Carbon Dioxide Level 31 mmol/L (21-32) Anion Gap 6 (6-14) Blood Urea Nitrogen 42 mg/dL (8-26) Creatinine 1.8 mg/dL (0.7-1.3) Estimated GFR (Cockcroft-Gault) 44.9 Glucose Level 75 mg/dL (70-99) Calcium Level 8.7 mg/dL (8.5-10.1) Magnesium Level 2.1 mg/dL (1.8-2.4) Test 10/02/16 06:34 10/02/16 07:49 Glucose (Fingerstick) 66 mg/dL (70-99) 104 mg/dL (70-99) Medications Active Scripts Medications Dose Route/Sig Max Daily Dose Days Date Category Levofloxacin 750 Mg Tablet 1 Tab PO DAILY 09/21/16 Rx Percocet 5-325 Mg Tablet (Oxycodone/Acetaminophen) 1 Each Tablet 1 Tab PO PRN Q6HRS PRN 07/30/16 Reported Advair 100-50 Diskus (Fluticasone/Salmeterol) 1 Each Disk.w.dev 1 Puff IH BID 06/21/16 Reported Spiriva Respimat (Tiotropium [place]) 4 Gm Mist.inhal 2.5 Gm IH DAILY 06/21/16 Reported Symbicort 160-4.5 Mcg Inhaler (Budesonide/Formoterol Fumarate) 10.2 Gm Hfa.aer.ad 2 Puff IH BID 06/21/16 Reported Atorvastatin Calcium 20 Mg Tablet 20 Mg PO HS 06/21/16 Reported Lisinopril-Hctz 10-12.5 Mg Tab (Lisinopril/Hydrochlorothiazide) 1 Each Tablet 1 Tab PO DAILY 06/21/16 Reported Isosorbide Mononitrate Er (Isosorbide Mononitrate) 120 Mg Tab.er.24h 120 Mg PO DAILY 06/21/16 Reported Levemir Flextouch (Insulin Detemir) 100 Unit/1 Ml Insuln.pen 20 Units SQ QHS 30 11/24/15 Rx Novolog Flexpen (Insulin Aspart) 100 Unit/1 Ml Insuln.pen 10 Units SQ TIDAC 30 11/24/15 Rx Novolin N (Nph, Human Insulin Isophane) 100 Unit/1 Ml Vial 0 SQ 11/18/15 Reported Promethazine-Codeine Syrup (Promethazine Hcl/Codeine) 118 Ml Syrup 5 Ml PO Q4-6HRS 11/18/15 Reported Diltiazem 24HR Cd (Diltiazem Hcl) 240 Mg Cap.er.24h 240 Mg PO DAILY 11/18/15 Reported NITROGLYCERIN SubLingual (Nitroglycerin) 0.4 Mg Tab.subl 0.4 Mg SL PRN Q5MIN PRN 11/18/15 Reported Atorvastatin Calcium 40 Mg Tablet 40 Mg PO HS 11/18/15 Reported Comments cxr reviewed. Impression . 1. Acute/Chronic resp failure multifactorial/COPD 2. Acute encephalopathy improved 3. History of extensive pulmonary embolism, resulting in shock in June. Status post treatment with anticoagulation Xarelto with last CT angiogram done on 2016 has shown resolution of pulmonary embolism.He is s/p IVC filter. 4. History of IVC filter placement in June. 5. 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 6. Abnormal CXR with mild CHF 7. renal failure, 8. Anemia 9. PVD Plan . resp status is compensated, bronchodilators ics PT/OT no termite treater anticoagulation poor candidate 6 min walk bf dc discussed w rn, pt SARAH VELASQUEZ MD Oct 02, 2016 08:50
[2016-10-02] MEDS: ISOSORBIDE MONONITRATE ER 30 MG TAB.ER.24H PO SCH (09:32)
[2016-10-02] MEDS: CLOPIDOGREL BISULFATE 75 MG TABLET PO SCH (09:32)
[2016-10-02] MEDS: amLODIPine BESYLATE 5 MG TABLET PO SCH (09:32)
[2016-10-02] MEDS: BENZONATATE 100 MG CAPSULE. PO SCH ×3 (09:32→21:38)
[2016-10-02 11:08] VITALS: BP 155/81
--- NOTE | 2016-10-02 12:38 | PDOC ---
SURGICAL PROGRESS NOTE Subjective He is sitting up eating lunch. Vital Signs Vital Signs Date Time Temp Pulse Resp B/P (MAP) Pulse Ox O2 Delivery O2 Flow Rate FiO2 10/02/16 11:53 99 Nasal Cannula 2.0 10/02/16 11:08 97.9 89 20 155/81 (105) 97.9 I&O Intake and Output 10/02/16 07:00 Intake Total 300 ml Output Total 2345 ml Balance -2045 ml Intake Oral 300 ml Output Urine Total 2345 ml General: Alert, No acute distress Abdomen: Soft, No tenderness Extremities: Other (incisions intact, moderate edema, right foot dressing intact) Labs Laboratory Tests Test 09/30/16 13:41 09/30/16 14:27 09/30/16 15:43 09/30/16 17:42 Glucose (Fingerstick) 74 mg/dL (70-99) 107 mg/dL (70-99) 90 mg/dL (70-99) 84 mg/dL (70-99) Test 09/30/16 21:31 09/30/16 23:25 10/01/16 05:40 10/01/16 08:14 Glucose (Fingerstick) 205 mg/dL (70-99) 162 mg/dL (70-99) Nasal Screen MRSA (PCR) Negative (Negative) White Blood Count 10.3 x10^3/uL (4.0-11.0) Red Blood Count 3.39 x10^6/uL (4.30-5.70) Hemoglobin 9.8 g/dL (13.0-17.5) Hematocrit 29.8 % (39.0-53.0) Mean Corpuscular Volume 88 fL (79-100) Mean Corpuscular Hemoglobin 29 pg (25-35) Mean Corpuscular Hemoglobin Concent 33 g/dL (31-37) Red Cell Distribution Width 16.9 % (11.5-14.5) Platelet Count 303 x10^3/uL (140-400) Neutrophils (%) (Auto) 76 % (31-73) Lymphocytes (%) (Auto) 10 % (24-48) Monocytes (%) (Auto) 12 % (0-9) Eosinophils (%) (Auto) 1 % (0-3) Basophils (%) (Auto) 1 % (0-3) Neutrophils # (Auto) 7.9 x10^3uL (1.8-7.7) Lymphocytes # (Auto) 1.1 x10^3/uL (1.0-4.8) Monocytes # (Auto) 1.2 x10^3/uL (0.0-1.1) Eosinophils # (Auto) 0.1 x10^3/uL (0.0-0.7) Basophils # (Auto) 0.1 x10^3/uL (0.0-0.2) Sodium Level 137 mmol/L (136-145) Potassium Level 4.4 mmol/L (3.5-5.1) Chloride Level 102 mmol/L (98-107) Carbon Dioxide Level 28 mmol/L (21-32) Anion Gap 7 (6-14) Blood Urea Nitrogen 46 mg/dL (8-26) Creatinine 2.0 mg/dL (0.7-1.3) Estimated GFR (Cockcroft-Gault) 39.7 Glucose Level 209 mg/dL (70-99) Calcium Level 8.5 mg/dL (8.5-10.1) Test 10/01/16 12:06 10/01/16 16:12 10/01/16 20:38 10/02/16 04:00 Glucose (Fingerstick) 175 mg/dL (70-99) 153 mg/dL (70-99) 168 mg/dL (70-99) Sodium Level 140 mmol/L (136-145) Potassium Level 4.1 mmol/L (3.5-5.1) Chloride Level 103 mmol/L (98-107) Carbon Dioxide Level 31 mmol/L (21-32) Anion Gap 6 (6-14) Blood Urea Nitrogen 42 mg/dL (8-26) Creatinine 1.8 mg/dL (0.7-1.3) Estimated GFR (Cockcroft-Gault) 44.9 Glucose Level 75 mg/dL (70-99) Calcium Level 8.7 mg/dL (8.5-10.1) Magnesium Level 2.1 mg/dL (1.8-2.4) Test 10/02/16 06:34 10/02/16 07:49 10/02/16 11:43 Glucose (Fingerstick) 66 mg/dL (70-99) 104 mg/dL (70-99) 137 mg/dL (70-99) Laboratory Tests Test 10/01/16 16:12 10/01/16 20:38 10/02/16 04:00 10/02/16 06:34 Glucose (Fingerstick) 153 mg/dL (70-99) 168 mg/dL (70-99) 66 mg/dL (70-99) Sodium Level 140 mmol/L (136-145) Potassium Level 4.1 mmol/L (3.5-5.1) Chloride Level 103 mmol/L (98-107) Carbon Dioxide Level 31 mmol/L (21-32) Anion Gap 6 (6-14) Blood Urea Nitrogen 42 mg/dL (8-26) Creatinine 1.8 mg/dL (0.7-1.3) Estimated GFR (Cockcroft-Gault) 44.9 Glucose Level 75 mg/dL (70-99) Calcium Level 8.7 mg/dL (8.5-10.1) Magnesium Level 2.1 mg/dL (1.8-2.4) Test 10/02/16 07:49 10/02/16 11:43 Glucose (Fingerstick) 104 mg/dL (70-99) 137 mg/dL (70-99) Problem List Problems Medical Problems: (1) Hypoglycemia Status: Acute Assessment/Plan s/p bypass for severe PVD s/p toe amp and heel debridement Acute on chronic renal failure Continue local wound care. Elevate legs to minimize swelling Will need to determine if he needs termite treater helper dialysis access. Problems: MARILIN DELUNA MD Oct 02, 2016 12:38
--- NOTE | 2016-10-02 13:51 | PDOC ---
PROGRESS NOTES Subjective Subjective SEEN IN FOLLOW UP OF ARF Objective Objective Vital Signs Date Time Temp Pulse Resp B/P (MAP) Pulse Ox O2 Delivery O2 Flow Rate FiO2 10/02/16 11:53 99 Nasal Cannula 2.0 10/02/16 11:08 97.9 89 20 155/81 (105) 97.9 Intake and Output 10/02/16 07:00 Intake Total 300 ml Output Total 2345 ml Balance -2045 ml Intake Oral 300 ml Output Urine Total 2345 ml Physical Exam Abdomen: Normal bowel sounds, Soft, No tenderness, No hepatosplenomegaly, No masses Heart: Regular rate, Normal S1, Normal S2, No murmurs, Gallops Extremities: No clubbing, No cyanosis, No edema, Normal pulses, No tenderness/ swelling General: Alert, Oriented X3, Cooperative, No acute distress Psych/Mental Status: Mental status NL, Mood NL Diagnosis RENAL FAILURE: Acute, Other (DEHYDRATION) Assessment Assessment Problems Medical Problems: (1) Hypoglycemia Status: Acute Plan Plan of Care RENAL FUNCTION IS BETTER. CONT SAME Comment Review of Relevant I have reviewed the following items valerie (where applicable) has been applied. Labs Laboratory Tests Test 09/30/16 14:27 09/30/16 15:43 09/30/16 17:42 09/30/16 21:31 Glucose (Fingerstick) 107 mg/dL (70-99) 90 mg/dL (70-99) 84 mg/dL (70-99) 205 mg/dL (70-99) Test 09/30/16 23:25 10/01/16 05:40 10/01/16 08:14 10/01/16 12:06 Nasal Screen MRSA (PCR) Negative (Negative) White Blood Count 10.3 x10^3/uL (4.0-11.0) Red Blood Count 3.39 x10^6/uL (4.30-5.70) Hemoglobin 9.8 g/dL (13.0-17.5) Hematocrit 29.8 % (39.0-53.0) Mean Corpuscular Volume 88 fL (79-100) Mean Corpuscular Hemoglobin 29 pg (25-35) Mean Corpuscular Hemoglobin Concent 33 g/dL (31-37) Red Cell Distribution Width 16.9 % (11.5-14.5) Platelet Count 303 x10^3/uL (140-400) Neutrophils (%) (Auto) 76 % (31-73) Lymphocytes (%) (Auto) 10 % (24-48) Monocytes (%) (Auto) 12 % (0-9) Eosinophils (%) (Auto) 1 % (0-3) Basophils (%) (Auto) 1 % (0-3) Neutrophils # (Auto) 7.9 x10^3uL (1.8-7.7) Lymphocytes # (Auto) 1.1 x10^3/uL (1.0-4.8) Monocytes # (Auto) 1.2 x10^3/uL (0.0-1.1) Eosinophils # (Auto) 0.1 x10^3/uL (0.0-0.7) Basophils # (Auto) 0.1 x10^3/uL (0.0-0.2) Sodium Level 137 mmol/L (136-145) Potassium Level 4.4 mmol/L (3.5-5.1) Chloride Level 102 mmol/L (98-107) Carbon Dioxide Level 28 mmol/L (21-32) Anion Gap 7 (6-14) Blood Urea Nitrogen 46 mg/dL (8-26) Creatinine 2.0 mg/dL (0.7-1.3) Estimated GFR (Cockcroft-Gault) 39.7 Glucose Level 209 mg/dL (70-99) Calcium Level 8.5 mg/dL (8.5-10.1) Glucose (Fingerstick) 162 mg/dL (70-99) 175 mg/dL (70-99) Test 10/01/16 16:12 10/01/16 20:38 10/02/16 04:00 10/02/16 06:34 Glucose (Fingerstick) 153 mg/dL (70-99) 168 mg/dL (70-99) 66 mg/dL (70-99) Sodium Level 140 mmol/L (136-145) Potassium Level 4.1 mmol/L (3.5-5.1) Chloride Level 103 mmol/L (98-107) Carbon Dioxide Level 31 mmol/L (21-32) Anion Gap 6 (6-14) Blood Urea Nitrogen 42 mg/dL (8-26) Creatinine 1.8 mg/dL (0.7-1.3) Estimated GFR (Cockcroft-Gault) 44.9 Glucose Level 75 mg/dL (70-99) Calcium Level 8.7 mg/dL (8.5-10.1) Magnesium Level 2.1 mg/dL (1.8-2.4) Test 10/02/16 07:49 10/02/16 11:43 Glucose (Fingerstick) 104 mg/dL (70-99) 137 mg/dL (70-99) Laboratory Tests Test 10/01/16 16:12 10/01/16 20:38 10/02/16 04:00 10/02/16 06:34 Glucose (Fingerstick) 153 mg/dL (70-99) 168 mg/dL (70-99) 66 mg/dL (70-99) Sodium Level 140 mmol/L (136-145) Potassium Level 4.1 mmol/L (3.5-5.1) Chloride Level 103 mmol/L (98-107) Carbon Dioxide Level 31 mmol/L (21-32) Anion Gap 6 (6-14) Blood Urea Nitrogen 42 mg/dL (8-26) Creatinine 1.8 mg/dL (0.7-1.3) Estimated GFR (Cockcroft-Gault) 44.9 Glucose Level 75 mg/dL (70-99) Calcium Level 8.7 mg/dL (8.5-10.1) Magnesium Level 2.1 mg/dL (1.8-2.4) Test 10/02/16 07:49 10/02/16 11:43 Glucose (Fingerstick) 104 mg/dL (70-99) 137 mg/dL (70-99) Microbiology 09/22/16 Blood Culture - Final, Complete NO GROWTH AFTER 5 DAYS 09/30/16 Anaerobic/Aerobic Culture, Resulted Pending 09/30/16 Anaerobic Culture Result 1 (MARÍA), Resulted Pending 09/30/16 Aerobic Culture - Preliminary, Resulted 09/30/16 Aerobic Culture Result 1 (MARÍA) - Preliminary, Resulted Medications Current Medications Dextrose (Dextrose 50%-Water Syringe) 25 gm STK-MED ONCE IV ; Start 09/22/16 at 10:39; Stop 09/22/16 at 10:40; Status DC Dextrose 500 ml @ 30 mls/hr 1X ONCE IV Last administered on 09/22/16t 11:52; Start 09/22/16 at 11:45; Stop 09/22/16 at 17:38; Status DC Dextrose (Dextrose 50%-Water Syringe) 25 gm STK-MED ONCE IV ; Start 09/22/16 at 11:45; Stop 09/22/16 at 11:46; Status DC Dextrose (Dextrose 50%-Water Syringe) 25 gm 1X ONCE IV Last administered on 10:45; Start 09/22/16 at 12:00; Stop 09/22/16 at 12:01; Status DC Dextrose (Dextrose 50%-Water Syringe) 25 gm 1X ONCE IV Last administered on 11:40; Start 09/22/16 at 12:00; Stop 09/22/16 at 12:01; Status DC Nitroglycerin (Nitrostat) 0.4 mg PRN Q5MIN PRN SL CHEST PAIN Last administered on 09/24/16 03:18; Start 09/22/16 at 12:00 Ondansetron HCl (Zofran) 4 mg PRN Q8HRS PRN IV NAUSEA/VOMITING; Start 09/22/16 at 12:30; Stop 09/23/16 at 12:29; Status DC Levofloxacin/ Dextrose (Levaquin Per Pharmacy) 1 each PRN DAILY PRN MC SEE COMMENTS; Start 09/22/16 at 12:45; Stop 09/25/16 at 15:18; Status DC Levofloxacin/ Dextrose 150 ml @ 100 mls/hr Q48H IV Last administered on 14:46; Start 09/22/16 at 13:00; Stop 10/01/16 at 14:42; Status DC Sodium Chloride 500 ml @ 1,000 mls/hr 1X ONCE IV Last administered on 13:10; Start 09/22/16 at 13:15; Stop 09/22/16 at 13:44; Status DC Dextrose (Dextrose 50%-Water Syringe) 25 gm 1X ONCE IV Last administered on 13:11; Start 09/22/16 at 13:15; Stop 09/22/16 at 13:16; Status DC Insulin Aspart (NovoLOG) 0-5 UNITS TIDWMEALS SQ Last administered on 09/22/16 18:17; Start 09/22/16 at 17:00; Stop 09/23/16 at 09:23; Status DC Dextrose (Dextrose 50%-Water Syringe) 12.5 gm PRN Q15MIN PRN IV SEE COMMENTS Last administered on 09/22/16 13:58; Start 09/22/16 at 14:00 Labetalol HCl (Normodyne) 20 mg PRN Q2HR PRN IVP HYPERTENSION, SEE COMMENTS Last administered on 09/30/16 16:25; Start 09/22/16 at 14:15; Stop 09/30/16 at 17 :24; Status DC Amlodipine Besylate (Norvasc) 10 mg DAILY PO ; Start 09/23/16 at 09:00; Status UNV Atorvastatin Calcium (Lipitor) 40 mg HS PO Last administered on 10/01/16 21:47 ; Start 09/22/16 at 21:00 Diltiazem HCl (Cardizem 24hr Cd) 240 mg DAILY PO Last administered on 09:33; Start 09/22/16 at 15:00 Isosorbide Mononitrate (Imdur) 120 mg DAILY PO Last administered on 10/02/16 09:32; Start 09/22/16 at 15:00 Albuterol/ Ipratropium (Duoneb) 3 ml STK-MED ONCE .ROUTE ; Start 09/22/16 at 15: 06; Stop 09/22/16 at 15:07; Status DC Albuterol/ Ipratropium (Duoneb) 3 ml RTQID NEB Last administered on 09/30/16 16 :29; Start 09/22/16 at 16:00; Stop 09/30/16 at 16:50; Status DC Budesonide (Pulmicort) 0.5 mg RTBID NEB Last administered on 10/02/16 07:40; Start 09/22/16 at 20:00 Magnesium Sulfate/ Dextrose 50 ml @ 25 mls/hr PRN DAILY PRN IV for Mag < 1.7 on am labs; Start 09/22/16 at 15:45 Sodium Chloride 1,000 ml @ 100 mls/hr Q10H IV Last administered on 09/23/16 01 :35; Start 09/22/16 at 15:45; Stop 09/23/16 at 07:45; Status DC Dextrose 1,000 ml @ 50 mls/hr Q20H IV Last administered on 09/22/16 17:39; Start 09/22/16 at 17:45; Stop 09/23/16 at 07:45; Status DC Insulin Aspart (NovoLOG) 0-9 UNITS TIDWMEALS SQ Last administered on 10/01/16 13:10; Start 09/23/16 at 12:00 Dextrose (Dextrose 50%-Water Syringe) 12.5 gm PRN Q15MIN PRN IV SEE COMMENTS; Start 09/23/16 at 09:30; Stop 09/23/16 at 12:56; Status DC Albuterol/ Ipratropium (Duoneb) 3 ml RTQID NEB ; Start 09/23/16 at 12:00; Stop at 12:56; Status DC Prednisone (Prednisone) 60 mg 1X ONCE PO Last administered on 09/23/16 10:00; Start 09/23/16 at 09:30; Stop 09/23/16 at 09:31; Status DC Benzonatate (Tessalon Perle) 100 mg [id number] PO Last administered on 10/02/16 09 :32; Start 09/23/16 at 09:30 Furosemide (Lasix) 20 mg 1X ONCE IVP Last administered on 09/23/16 17:30; Start 09/23/16 at 17:30; Stop 09/23/16 at 17:31; Status DC Furosemide (Lasix) 80 mg 1X ONCE IVP Last administered on 09/24/16 15:56; Start 09/24/16 at 11:00; Stop 09/24/16 at 11:03; Status DC Acetylcysteine (Mucomyst 20% Oral Solution) 1,200 mg BID PO Last administered on 09/26/16 08:51; Start 09/24/16 at 11:30; Stop 09/26/16 at 11:29; Status DC Darbepoetin Arsh (Aranesp) 60 mcg [id number] SQ Last administered on 10/01/16 21: 48; Start 09/24/16 at 21:00 Tramadol HCl (Ultram) 50 mg PRN Q6HRS PRN PO mild pain Last administered on 03:53; Start 09/24/16 at 11:30 Iohexol (Omnipaque 300 Mg/ml) 100 ml STK-MED ONCE .ROUTE ; Start 09/24/16 at 12: 12; Stop 09/24/16 at 12:13; Status DC Lidocaine/Sodium Bicarbonate (Buffered Lidocaine 1%) 20 ml STK-MED ONCE IJ ; Start 09/24/16 at 12:12; Stop 09/24/16 at 12:13; Status DC Midazolam HCl (Versed) 5 mg STK-MED ONCE .ROUTE ; Start 09/24/16 at 12:12; Stop 09/24/16 at 12:13; Status DC Fentanyl Citrate (Fentanyl 5ml Vial) 250 mcg STK-MED ONCE .ROUTE ; Start at 12:12; Stop 09/24/16 at 12:13; Status DC Heparin Sodium/ Sodium Chloride 2,000 ml @ As Directed STK-MED ONCE .ROUTE ; Start 09/24/16 at 12:13; Stop 09/24/16 at 12:14; Status DC Iodixanol (Visipaque 320) 100 ml STK-MED ONCE .ROUTE ; Start 09/24/16 at 12:13; Stop 09/24/16 at 12:14; Status DC Heparin Sodium (Porcine) (Heparin Sodium) 10,000 unit STK-MED ONCE .ROUTE ; Start 09/24/16 at 12:15; Stop 09/24/16 at 12:16; Status DC Insulin Detemir (Levemir) 10 units QHS SQ Last administered on 10/01/16 21:53; Start 09/24/16 at 21:00 Heparin Sodium/ Sodium Chloride 1,000 unit 1X ONCE IART Last administered on 14:52; Start 09/24/16 at 14:00; Stop 09/24/16 at 14:01; Status DC Lidocaine/Sodium Bicarbonate (Buffered Lidocaine 1%) 20 ml 1X ONCE IJ Last administered on 09/24/16 14:00; Start 09/24/16 at 14:00; Stop 09/24/16 at 14:01; Status DC Midazolam HCl (Versed) 5 mg 1X ONCE IV ; Start 09/24/16 at 14:00; Stop 09/24/16 at 14:01; Status DC Fentanyl Citrate (Fentanyl 5ml Vial) 250 mcg 1X ONCE IV ; Start 09/24/16 at 14: 00; Stop 09/24/16 at 14:01; Status DC Iohexol (Omnipaque 300 Mg/ml) 100 ml 1X ONCE IART Last administered on 14:51; Start 09/24/16 at 14:00; Stop 09/24/16 at 14:01; Status DC Iodixanol (Visipaque 320) 100 ml 1X ONCE IART Last administered on 09/24/16 14 :00; Start 09/24/16 at 14:00; Stop 09/24/16 at 14:01; Status DC Heparin Sodium (Porcine) (Heparin Sodium) 4,000 unit 1X ONCE IV Last administered on 09/24/16 14:00; Start 09/24/16 at 14:00; Stop 09/24/16 at 14:01; Status DC Info (Do NOT chart on this entry -- for MONITORING) 1 each PRN DAILY PRN MC SEE COMMENTS; Start 09/24/16 at 14:15; Stop 09/26/16 at 14:14; Status DC Clopidogrel Bisulfate (Plavix) 300 mg 1X ONCE PO Last administered on 16:01; Start 09/24/16 at 15:30; Stop 09/24/16 at 15:31; Status DC Clopidogrel Bisulfate (Plavix) 75 mg [id number] PO Last administered on 09:32; Start 09/25/16 at 08:00; Stop 10/25/16 at 08:00 Ringer's Solution 1,000 ml @ 100 mls/hr Q10H IV ; Start 09/27/16 at 00:01; Stop 09/27/16 at 00:01; Status DC Cefazolin Sodium/ Dextrose 50 ml @ 100 mls/hr 1X PREOP PRN IV SEE COMMENTS Last administered on 09/27/16 13:22; Start 09/27/16 at 06:00; Stop 09/27/16 at 18: 00; Status DC Heparin Sodium (Porcine) 5000 unit/Sodium Chloride 505 ml @ 505 mls/hr 1X PERIOP ONCE IRR Last administered on 09/27/16 13:36; Start 09/27/16 at 07:15; Stop 09/27/16 at 08:14; Status DC Cefazolin Sodium 1 gm/Sodium Chloride 500 ml @ 500 mls/hr 1X PERIOP ONCE IRR Last administered on 09/27/16 13:36; Start 09/27/16 at 07:15; Stop 09/27/16 at 08: 14; Status DC Furosemide (Lasix) 40 mg 1X ONCE IVP Last administered on 09/27/16 13:20; Start 09/27/16 at 11:00; Stop 09/27/16 at 11:01; Status DC Lidocaine HCl (Lidocaine Pf 2% Vial) 5 ml STK-MED ONCE .ROUTE ; Start 09/27/16 at 11:42; Stop 09/27/16 at 11:43; Status DC Ondansetron HCl (Zofran) 4 mg STK-MED ONCE .ROUTE ; Start 09/27/16 at 11:42; Stop 09/27/16 at 11:43; Status DC Famotidine (Pepcid) 20 mg STK-MED ONCE .ROUTE ; Start 09/27/16 at 11:42; Stop 09/27/16 at 11:43; Status DC Dexamethasone Sodium Phosphate (Decadron) 20 mg STK-MED ONCE .ROUTE ; Start 09/27 at 11:42; Stop 09/27/16 at 11:43; Status DC Propofol 20 ml @ As Directed STK-MED ONCE IV ; Start 09/27/16 at 11:42; Stop 09/27 at 11:43; Status DC Rocuronium Palmer (Zemuron) 50 mg STK-MED ONCE .ROUTE ; Start 09/27/16 at 11:45 ; Stop 09/27/16 at 11:46; Status DC Fentanyl Citrate (Fentanyl 5ml Vial) 250 mcg STK-MED ONCE .ROUTE ; Start at 11:46; Stop 09/27/16 at 11:47; Status DC Cellulose 1 each STK-MED ONCE .ROUTE ; Start 09/27/16 at 12:04; Stop 09/27/16 at 12:05; Status DC Bupivacaine HCl (Marcaine 0.25%) 50 ml STK-MED ONCE .ROUTE ; Start 09/27/16 at 12 :04; Stop 09/27/16 at 12:05; Status DC Iohexol (Omnipaque 300 Mg/ml) 100 ml STK-MED ONCE .ROUTE ; Start 09/27/16 at 12: 05; Stop 09/27/16 at 12:06; Status DC Gelatin (Gelfoam Size 100) 1 each STK-MED ONCE .ROUTE ; Start 09/27/16 at 12:05 ; Stop 09/27/16 at 12:06; Status DC Papaverine HCl 60 mg STK-MED ONCE .ROUTE ; Start 09/27/16 at 12:05; Stop 09/27/16 at 12:06; Status DC Thrombin 20,000 unit STK-MED ONCE TP ; Start 09/27/16 at 12:05; Stop 09/27/16 at 12:06; Status DC Lidocaine HCl 1 ml STK-MED ONCE .ROUTE ; Start 09/27/16 at 12:35; Stop 09/27/16 at 12:36; Status DC Ringer's Solution 1,000 ml @ 75 mls/hr [id number] IV Last administered on 17:03; Start 09/27/16 at 13:30; Stop 09/28/16 at 12:44; Status DC Furosemide (Lasix) 40 mg STK-MED ONCE .ROUTE ; Start 09/27/16 at 13:34; Stop 09/27 at 13:35; Status DC Heparin Sodium (Porcine) (Heparin Sodium) 10,000 unit STK-MED ONCE .ROUTE ; Start 09/27/16 at 14:29; Stop 09/27/16 at 14:30; Status DC Glycopyrrolate (Robinul) 1 mg STK-MED ONCE .ROUTE ; Start 09/27/16 at 16:00; Stop 09/27/16 at 16:01; Status DC Neostigmine Methylsulfate 5 mg STK-MED ONCE .ROUTE ; Start 09/27/16 at 16:00; Stop 09/27/16 at 16:01; Status DC Desflurane (Suprane) 90 ml STK-MED ONCE IH ; Start 09/27/16 at 16:00; Stop at 16:01; Status DC Bacitracin 14 margie STK-MED ONCE TP Last administered on 09/27/16t 16:12; Start at 16:14; Stop 09/27/16 at 16:15; Status DC Propofol 20 ml @ As Directed STK-MED ONCE IV ; Start 09/27/16 at 16:28; Stop 09/27 at 16:29; Status DC Fentanyl Citrate (Fentanyl 2ml Vial) 25 mcg PRN Q5MIN PRN IV Acute Pain; Start 09/27/16 at 16:45; Stop 09/28/16 at 16:44; Status DC Fentanyl Citrate (Fentanyl 2ml Vial) 50 mcg PRN Q5MIN PRN IV Acute Pain Last administered on 09/27/16 17:21; Start 09/27/16 at 16:45; Stop 09/28/16 at 16:44; Status DC Morphine Sulfate 2 mg PRN Q10MIN PRN IV Mild Pain Last administered on 17:00; Start 09/27/16 at 16:45; Stop 09/28/16 at 16:44; Status DC Hydromorphone HCl (Dilaudid) 0.5 mg PRN Q10MIN PRN IV Moderate to severe pain; Start 09/27/16 at 16:45; Stop 09/28/16 at 16:44; Status DC Ondansetron HCl (Zofran) 4 mg PRN Q6HRS PRN IV Nausea, 2nd Choice; Start at 16:45; Stop 09/28/16 at 16:44; Status DC Prochlorperazine Edisylate (Compazine) 5 mg PRN Q6HRS PRN IV Nausea/Vomiting, 2nd Choice; Start 09/27/16 at 16:45; Stop 09/28/16 at 16:44; Status DC Haloperidol Lactate (Haldol) 5 mg STK-MED ONCE .ROUTE ; Start 09/27/16 at 17:28; Stop 09/27/16 at 17:29; Status DC Haloperidol Lactate (Haldol) 2.5 mg 1X PACU PRN IVP AGITATION Last administered on 09/27/16 18:07; Start 09/27/16 at 17:30; Stop 09/28/16 at 15:58; Status DC Furosemide (Lasix) 80 mg 1X ONCE IVP Last administered on 09/28/16 11:19; Start 09/28/16 at 11:00; Stop 09/28/16 at 11:01; Status DC Cefazolin Sodium/ Dextrose 50 ml @ 100 mls/hr 1X PREOP PRN IV EQUIPMENT [employer]ANNER FOR OR; Start 09/30/16 at 06:00; Stop 09/30/16 at 08:00; Status DC Albuterol/ Ipratropium (Duoneb) 3 ml 1X ONCE NEB Last administered on 00:07; Start 09/29/16 at 00:00; Stop 09/29/16 at 00:12; Status DC Fentanyl Citrate (Fentanyl 2ml Vial) 25 mcg PRN Q5MIN PRN IV MILD PAIN; Start 09/30/16 at 07:00; Stop 10/01/16 at 06:59; Status DC Fentanyl Citrate (Fentanyl 2ml Vial) 50 mcg PRN Q5MIN PRN IV MODERATE PAIN Last administered on 09/30/16 16:19; Start 09/30/16 at 07:00; Stop 10/01/16 at 06: 59; Status DC Morphine Sulfate 1 mg PRN Q10MIN PRN IV SEVERE PAIN; Start 09/30/16 at 07:00; Stop 10/01/16 at 06:59; Status DC Ringer's Solution 1,000 ml @ 0 mls/hr Q0M IV ; Start 09/30/16 at 07:00; Stop 09/30/16 at 18:59; Status DC Lidocaine HCl 2 ml PRN 1X PRN ID PRIOR TO IV START; Start 09/30/16 at 07:00; Stop 10/01/16 at 06:59; Status DC Hydromorphone HCl (Dilaudid) 0.5 mg PRN Q10MIN PRN IV SEV PAIN, Second choice; Start 09/30/16 at 07:00; Stop 10/01/16 at 06:59; Status DC Prochlorperazine Edisylate (Compazine) 5 mg PACU PRN PRN IV NAUSEA, MRX1; Start 09/30/16 at 07:00; Stop 10/01/16 at 06:59; Status DC Lidocaine HCl 48 ml/Sodium Bicarbonate 12 meq/Miscellaneous 60 ml @ 60 mls/hr 1X PERIOP ONCE ID Last administered on 09/30/16 14:54; Start 09/30/16 at 06:00 ; Stop 09/30/16 at 06:59; Status DC Cefazolin Sodium/ Dextrose 50 ml @ 100 mls/hr 1X PREOP IV Last administered on 09/30/16 17:02; Start 09/30/16 at 11:45; Stop 10/01/16 at 18:00; Status DC Midazolam HCl (Versed) 2 mg STK-MED ONCE .ROUTE ; Start 09/30/16 at 11:45; Stop 09/30/16 at 11:46; Status DC Fentanyl Citrate (Fentanyl 2ml Vial) 100 mcg STK-MED ONCE .ROUTE ; Start at 11:45; Stop 09/30/16 at 11:46; Status DC Propofol 20 ml @ As Directed STK-MED ONCE IV ; Start 09/30/16 at 11:46; Stop 09/30 at 11:47; Status DC Dexamethasone Sodium Phosphate (Decadron) 20 mg STK-MED ONCE .ROUTE ; Start 09/30 at 11:46; Stop 09/30/16 at 11:47; Status DC Ondansetron HCl (Zofran) 4 mg STK-MED ONCE .ROUTE ; Start 09/30/16 at 11:46; Stop 09/30/16 at 11:47; Status DC Lidocaine HCl (Lidocaine Pf 2% Vial) 5 ml STK-MED ONCE .ROUTE ; Start 09/30/16 at 11:46; Stop 09/30/16 at 11:47; Status DC Silver Sulfadiazine (Silvadene) 25 margie STK-MED ONCE TP ; Start 09/30/16 at 13:37 ; Stop 09/30/16 at 13:38; Status DC Dextrose (Dextrose 50%-Water Syringe) 12.5 gm 1X ONCE IV Last administered on 09/30/16 14:07; Start 09/30/16 at 14:00; Stop 09/30/16 at 14:02; Status DC Bacitracin 14 margie STK-MED ONCE TP Last administered on 09/30/16 15:29; Start at 15:06; Stop 09/30/16 at 15:07; Status DC Albuterol Sulfate (Ventolin Neb Soln) 2.5 mg STK-MED ONCE .ROUTE ; Start at 16:05; Stop 09/30/16 at 16:06; Status DC Albuterol Sulfate (Ventolin Neb Soln) 2.5 mg 1X ONCE NEB Last administered on 09/30/16 16:24; Start 09/30/16 at 16:30; Stop 09/30/16 at 16:31; Status DC Albuterol/ Ipratropium (Duoneb) 3 ml RTQID NEB Last administered on 10/02/16 11:52; Start 09/30/16 at 20:00 Hydralazine HCl (Apresoline) 10 mg PRN Q4HRS PRN IVP for SBP > 170 Last administered on 10/02/16 03:54; Start 09/30/16 at 17:30 Acetaminophen/ Hydrocodone Bitart (Lortab 5/325) 1 tab PRN Q6HRS PRN PO moderate - severe pain; Start 10/01/16 at 14:45 Morphine Sulfate 2 mg PRN Q2HR PRN IV PAIN; Start 10/01/16 at 14:45 Amlodipine Besylate (Norvasc) 5 mg DAILY PO Last administered on 10/02/16 09: 32; Start 10/01/16 at 15:00 Furosemide (Lasix) 40 mg 1X ONCE IVP Last administered on 10/01/16 17:04; Start 10/01/16 at 15:15; Stop 10/01/16 at 15:16; Status DC Active Scripts Active Levofloxacin 750 Mg Tablet 1 Tab PO DAILY Levemir Flextouch (Insulin Detemir) 100 Unit/1 Ml Insuln.pen 20 Units SQ QHS 30 Days Novolog Flexpen (Insulin Aspart) 100 Unit/1 Ml Insuln.pen 10 Units SQ TIDAC 30 Days Reported Percocet 5-325 Mg Tablet (Oxycodone/Acetaminophen) 1 Each Tablet 1 Tab PO PRN Q6HRS PRN Advair 100-50 Diskus (Fluticasone/Salmeterol) 1 Each Disk.w.dev 1 Puff IH BID Spiriva Respimat (Tiotropium Palmer) 4 Gm Mist.inhal 2.5 Gm IH DAILY Symbicort 160-4.5 Mcg Inhaler (Budesonide/Formoterol Fumarate) 10.2 Gm Hfa.aer.ad 2 Puff IH BID Atorvastatin Calcium 20 Mg Tablet 20 Mg PO HS Lisinopril-Hctz 10-12.5 Mg Tab (Lisinopril/Hydrochlorothiazide) 1 Each Tablet 1 Tab PO DAILY Isosorbide Mononitrate Er (Isosorbide Mononitrate) 120 Mg Tab.er.24h 120 Mg PO DAILY Novolin N (Nph, Human Insulin Isophane) 100 Unit/1 Ml Vial 0 SQ Promethazine-Codeine Syrup (Promethazine Hcl/Codeine) 118 Ml Syrup 5 Ml PO Q4- 6HRS Diltiazem 24HR Cd (Diltiazem Hcl) 240 Mg Cap.er.24h 240 Mg PO DAILY NITROGLYCERIN SubLingual (Nitroglycerin) 0.4 Mg Tab.subl 0.4 Mg SL PRN Q5MIN PRN Atorvastatin Calcium 40 Mg Tablet 40 Mg PO HS Vitals/I & O Vital Sign - Last 24 Hours 10/01/16 10/01/16 10/01/16 10/01/16 15:00 16:20 17:04 19:29 Temp 98.8 98.8 Pulse 95 98 Resp 20 B/P (MAP) 155/81 (105) 155/81 Pulse Ox 95 99 O2 Delivery Nasal Cannula Nasal Cannula Nasal Cannula O2 Flow Rate 2.0 2.0 2.0 10/01/16 10/01/16 10/01/16 10/01/16 19:40 21:00 21:48 22:47 Temp 98.4 98.4 Pulse 90 90 Resp 22 B/P (MAP) 179/86 (117) 179/86 Pulse Ox 99 95 O2 Delivery Nasal Cannula Nasal Cannula O2 Flow Rate 2.5 2.0 2.5 10/01/16 10/02/16 10/02/16 10/02/16 23:41 03:47 03:53 03:54 Temp 98.2 98.7 98.2 98.7 Pulse 90 85 85 Resp 22 22 14 B/P (MAP) 163/79 (107) 176/91 (119) 176/91 Pulse Ox 95 99 94 O2 Delivery Room Air Nasal Cannula Nasal Cannula O2 Flow Rate 2.0 10/02/16 10/02/16 10/02/16 10/02/16 04:53 07:00 07:40 08:00 Temp 98.0 98.0 Pulse 84 Resp 22 B/P (MAP) 157/79 (105) Pulse Ox 100 O2 Delivery Nasal Cannula Nasal Cannula Nasal Cannula Nasal Cannula O2 Flow Rate 2.0 2.0 10/02/16 10/02/16 10/02/16 10/02/16 09:32 09:32 09:33 11:08 Temp 97.9 97.9 Pulse 84 84 84 89 Resp 20 B/P (MAP) 157/79 157/79 157/79 155/81 (105) Pulse Ox 98 O2 Delivery Nasal Cannula 10/02/16 11:53 Pulse Ox 99 O2 Delivery Nasal Cannula O2 Flow Rate 2.0 Intake and Output 10/01/16 10/01/16 10/02/16 15:00 23:00 07:00 Intake Total 200 ml 100 ml Output Total 800 ml 1545 ml Balance -600 ml -1445 ml DAJA LUCIANO MD Oct 02, 2016 13:51
[2016-10-02 15:05] VITALS: BP 156/78
[2016-10-02 19:22] VITALS: BP 157/63
[2016-10-02] MEDS: INSULIN DETEMIR 300 UNITS/3 ML INSULN.PEN. SQ SCH (21:37)
[2016-10-02] MEDS: ATORVASTATIN CALCIUM 40 MG TABLET. PO SCH (21:38)
[2016-10-02 23:15] VITALS: BP 170/94
[2016-10-03] MEDS ORDERED: IPRATRPIUM/ALBUTEROL 0.5/2.5MG 3 ML NEBU. NEB ONE (00:30)
[2016-10-03 03:20] VITALS: BP 173/95
[2016-10-03] MEDS: hydrALAZINE 20 MG/ML VIAL. IVP PRN (03:56)
[2016-10-03 07:00] VITALS: BP 155/80
[2016-10-03] MEDS: BUDESONIDE 0.5 MG/2 ML NEBU. NEB SCH ×2 (07:18→20:06)
[2016-10-03] MEDS: IPRATRPIUM/ALBUTEROL 0.5/2.5MG 3 ML NEBU. NEB SCH ×4 (07:18→20:06)
[2016-10-03] MEDS: INSULIN ASPART 300 UNITS/3 ML INSULN.PEN SQ SCH ×3 (08:00→16:37)
[2016-10-03] MEDS: BENZONATATE 100 MG CAPSULE. PO SCH ×3 (08:49→21:19)
[2016-10-03] MEDS: CLOPIDOGREL BISULFATE 75 MG TABLET PO SCH (08:49)
[2016-10-03] MEDS: ISOSORBIDE MONONITRATE ER 30 MG TAB.ER.24H PO SCH (08:49)
[2016-10-03] MEDS: amLODIPine BESYLATE 5 MG TABLET PO SCH (08:49)
--- NOTE | 2016-10-03 09:23 | PDOC ---
PULMONARY PROGRESS NOTES Subjective osob is better, has occ cough, has foot pain Vitals Vital Signs Date Time Temp Pulse Resp B/P (MAP) Pulse Ox O2 Delivery O2 Flow Rate FiO2 10/03/16 08:50 86 155/80 10/03/16 08:03 Nasal Cannula 2.0 10/03/16 07:18 95 10/03/16 07:00 97.8 22 97.8 ROS: No Nausea, No Chest Pain, No Abdominal Pain, No Increase Cough General: Alert, No acute distress HEENT: Other Lungs: Crackles, Other (bl decreased bs) Cardiovascular: S1, S2 Abdomen: Soft, Non-tender, Other Neuro Exam: Alert Extremities: Other (edema) Skin: Warm Labs Laboratory Tests Test 10/01/16 12:06 10/01/16 16:12 10/01/16 20:38 10/02/16 04:00 Glucose (Fingerstick) 175 mg/dL (70-99) 153 mg/dL (70-99) 168 mg/dL (70-99) Sodium Level 140 mmol/L (136-145) Potassium Level 4.1 mmol/L (3.5-5.1) Chloride Level 103 mmol/L (98-107) Carbon Dioxide Level 31 mmol/L (21-32) Anion Gap 6 (6-14) Blood Urea Nitrogen 42 mg/dL (8-26) Creatinine 1.8 mg/dL (0.7-1.3) Estimated GFR (Cockcroft-Gault) 44.9 Glucose Level 75 mg/dL (70-99) Calcium Level 8.7 mg/dL (8.5-10.1) Magnesium Level 2.1 mg/dL (1.8-2.4) Test 10/02/16 06:34 10/02/16 07:49 10/02/16 11:43 10/02/16 16:26 Glucose (Fingerstick) 66 mg/dL (70-99) 104 mg/dL (70-99) 137 mg/dL (70-99) 240 mg/dL (70-99) Test 10/02/16 20:50 10/03/16 07:45 Glucose (Fingerstick) 193 mg/dL (70-99) 96 mg/dL (70-99) Laboratory Tests Test 10/02/16 11:43 6/10/17 16:26 10/02/16 20:50 10/03/16 07:45 Glucose (Fingerstick) 137 mg/dL (70-99) 240 mg/dL (70-99) 193 mg/dL (70-99) 96 mg/dL (70-99) Medications Active Scripts Medications Dose Route/Sig Max Daily Dose Days Date Category Levofloxacin 750 Mg Tablet 1 Tab PO DAILY 09/21/16 Rx Percocet 5-325 Mg Tablet (Oxycodone/Acetaminophen) 1 Each Tablet 1 Tab PO PRN Q6HRS PRN 07/30/16 Reported Advair 100-50 Diskus (Fluticasone/Salmeterol) 1 Each Disk.w.dev 1 Puff IH BID 06/21/16 Reported Spiriva Respimat (Tiotropium [place]) 4 Gm Mist.inhal 2.5 Gm IH DAILY 06/21/16 Reported Symbicort 160-4.5 Mcg Inhaler (Budesonide/Formoterol Fumarate) 10.2 Gm Hfa.aer.ad 2 Puff IH BID 06/21/16 Reported Atorvastatin Calcium 20 Mg Tablet 20 Mg PO HS 06/21/16 Reported Lisinopril-Hctz 10-12.5 Mg Tab (Lisinopril/Hydrochlorothiazide) 1 Each Tablet 1 Tab PO DAILY 06/21/16 Reported Isosorbide Mononitrate Er (Isosorbide Mononitrate) 120 Mg Tab.er.24h 120 Mg PO DAILY 06/21/16 Reported Levemir Flextouch (Insulin Detemir) 100 Unit/1 Ml Insuln.pen 20 Units SQ QHS 30 11/24/15 Rx Novolog Flexpen (Insulin Aspart) 100 Unit/1 Ml Insuln.pen 10 Units SQ TIDAC 30 11/24/15 Rx Novolin N (Nph, Human Insulin Isophane) 100 Unit/1 Ml Vial 0 SQ 11/18/15 Reported Promethazine-Codeine Syrup (Promethazine Hcl/Codeine) 118 Ml Syrup 5 Ml PO Q4-6HRS 11/18/15 Reported Diltiazem 24HR Cd (Diltiazem Hcl) 240 Mg Cap.er.24h 240 Mg PO DAILY 11/18/15 Reported NITROGLYCERIN SubLingual (Nitroglycerin) 0.4 Mg Tab.subl 0.4 Mg SL PRN Q5MIN PRN 11/18/15 Reported Atorvastatin Calcium 40 Mg Tablet 40 Mg PO HS 11/18/15 Reported Comments cxr reviewed. Impression . 1. Acute/Chronic resp failure multifactorial/COPD 2. Acute encephalopathy improved 3. History of extensive pulmonary embolism, resulting in shock in June. Status post treatment with anticoagulation Xarelto with last CT angiogram done on 2016 has shown resolution of pulmonary embolism.He is s/p IVC filter. 4. History of IVC filter placement in June. 5. 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 6. Abnormal CXR with mild CHF 7. renal failure, 8. Anemia 9. PVD Plan . resp status is compensated, bronchodilators ics PT/OT no buttermaker anticoagulation poor candidate 6 min walk bf dc discussed w rn, pt SARAH VELASQUEZ MD Oct 03, 2016 09:23
[2016-10-03 11:00] VITALS: BP 157/84
--- NOTE | 2016-10-03 11:32 | PDOC ---
SURGICAL PROGRESS NOTE Subjective He is without complaints. Vital Signs Vital Signs Date Time Temp Pulse Resp B/P (MAP) Pulse Ox O2 Delivery O2 Flow Rate FiO2 10/03/16 11:12 97 Nasal Cannula 2.0 10/03/16 11:00 98.2 92 20 157/84 (108) 98.2 General: Alert, No acute distress Heart: Regular rate Abdomen: Soft, No tenderness Extremities: Other (right leg/foot incisions intact, good bypass pulse, right foot dressings changed, may need more debridement on heel at some point) Labs Laboratory Tests Test 10/01/16 12:06 10/01/16 16:12 10/01/16 20:38 10/02/16 04:00 Glucose (Fingerstick) 175 mg/dL (70-99) 153 mg/dL (70-99) 168 mg/dL (70-99) Sodium Level 140 mmol/L (136-145) Potassium Level 4.1 mmol/L (3.5-5.1) Chloride Level 103 mmol/L (98-107) Carbon Dioxide Level 31 mmol/L (21-32) Anion Gap 6 (6-14) Blood Urea Nitrogen 42 mg/dL (8-26) Creatinine 1.8 mg/dL (0.7-1.3) Estimated GFR (Cockcroft-Gault) 44.9 Glucose Level 75 mg/dL (70-99) Calcium Level 8.7 mg/dL (8.5-10.1) Magnesium Level 2.1 mg/dL (1.8-2.4) Test 10/02/16 06:34 10/02/16 07:49 10/02/16 11:43 10/02/16 16:26 Glucose (Fingerstick) 66 mg/dL (70-99) 104 mg/dL (70-99) 137 mg/dL (70-99) 240 mg/dL (70-99) Test 10/02/16 20:50 10/03/16 07:45 Glucose (Fingerstick) 193 mg/dL (70-99) 96 mg/dL (70-99) Laboratory Tests Test 10/02/16 11:43 10/02/16 16:26 10/02/16 20:50 10/03/16 07:45 Glucose (Fingerstick) 137 mg/dL (70-99) 240 mg/dL (70-99) 193 mg/dL (70-99) 96 mg/dL (70-99) Problem List Problems Medical Problems: (1) Hypoglycemia Status: Acute Assessment/Plan 1) PVD s/p right popl-DP bypass 2) s/p Toe amp and heel debridement 3) Acute renal failure - improved Continue local wound care. Consider removal of morton if okay with Renal. Start to work at d/c planning. Needs to limit pressure on right foot. May need SNF upon d/c. Problems: MARILIN DELUNA MD Oct 03, 2016 11:32
--- NOTE | 2016-10-03 12:38 | PDOC ---
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 wound care. HX bilateral PE with cardiac arrest ([facility] 2017) sec to PE COPD on home Oxygen DM2; insulin with HYPOGLYCEMIA: SSI with Levemir Renal failure: nephrology following. appreciate their recommendatons. HTN not controlled : prn hydralazine, continue current medications. see medications. Diastolic heart failure: stable. Intractable pain : PRN iv morphine with [place] Prognosis guarded Disposition: SNU placement labs reviewed. History of Present Illness History of Present Illness pain Controlled HTN not controlled. sitting in chair watching TV. Vitals Vitals Vital Signs Date Time Temp Pulse Resp B/P (MAP) Pulse Ox O2 Delivery O2 Flow Rate FiO2 10/03/16 11:12 97 Nasal Cannula 2.0 10/03/16 11:00 98.2 92 20 157/84 (108) 98.2 Physical Exam General: Alert, No acute distress Heart: Regular rate Lungs: Crackles, Other (bl decreased bs) Abdomen: Soft, No tenderness Extremities: Other (right leg/foot incisions intact, good bypass pulse, right foot dressings changed, may need more debridement on heel at some point) Skin: No rashes Labs LABS Laboratory Tests Test 10/02/16 16:26 10/02/16 20:50 10/03/16 07:45 10/03/16 11:31 Glucose (Fingerstick) 240 mg/dL (70-99) 193 mg/dL (70-99) 96 mg/dL (70-99) 217 mg/dL (70-99) Assessment and Plan Assessmemt and Plan Problems Medical Problems: (1) Hypoglycemia Status: Acute Problems: Comment Review of Relevant I have reviewed the following items valerie (where applicable) has been applied. Labs Laboratory Tests Test 10/01/16 16:12 10/01/16 20:38 10/02/16 04:00 10/02/16 06:34 Glucose (Fingerstick) 153 mg/dL (70-99) 168 mg/dL (70-99) 66 mg/dL (70-99) Sodium Level 140 mmol/L (136-145) Potassium Level 4.1 mmol/L (3.5-5.1) Chloride Level 103 mmol/L (98-107) Carbon Dioxide Level 31 mmol/L (21-32) Anion Gap 6 (6-14) Blood Urea Nitrogen 42 mg/dL (8-26) Creatinine 1.8 mg/dL (0.7-1.3) Estimated GFR (Cockcroft-Gault) 44.9 Glucose Level 75 mg/dL (70-99) Calcium Level 8.7 mg/dL (8.5-10.1) Magnesium Level 2.1 mg/dL (1.8-2.4) Test 10/02/16 07:49 10/02/16 11:43 10/02/16 16:26 10/02/16 20:50 Glucose (Fingerstick) 104 mg/dL (70-99) 137 mg/dL (70-99) 240 mg/dL (70-99) 193 mg/dL (70-99) Test 10/03/16 07:45 10/03/16 11:31 Glucose (Fingerstick) 96 mg/dL (70-99) 217 mg/dL (70-99) Laboratory Tests Test 10/02/16 16:26 10/02/16 20:50 10/03/16 07:45 10/03/16 11:31 Glucose (Fingerstick) 240 mg/dL (70-99) 193 mg/dL (70-99) 96 mg/dL (70-99) 217 mg/dL (70-99) Microbiology 09/22/16 Blood Culture - Final, Complete NO GROWTH AFTER 5 DAYS 09/30/16 Anaerobic/Aerobic Culture, Resulted Pending 09/30/16 Anaerobic Culture Result 1 (MARÍA), Resulted Pending 09/30/16 Aerobic Culture - Final, Resulted 09/30/16 Aerobic Culture Result 1 (MARÍA) - Final, Resulted Medications Current Medications Dextrose (Dextrose 50%-Water Syringe) 25 gm STK-MED ONCE IV ; Start 09/22/16 at 10:39; Stop 09/22/16 at 10:40; Status DC Dextrose 500 ml @ 30 mls/hr 1X ONCE IV Last administered on 09/22/16t 11:52; Start 09/22/16 at 11:45; Stop 09/22/16 at 17:38; Status DC Dextrose (Dextrose 50%-Water Syringe) 25 gm STK-MED ONCE IV ; Start 09/22/16 at 11:45; Stop 09/22/16 at 11:46; Status DC Dextrose (Dextrose 50%-Water Syringe) 25 gm 1X ONCE IV Last administered on 10:45; Start 09/22/16 at 12:00; Stop 09/22/16 at 12:01; Status DC Dextrose (Dextrose 50%-Water Syringe) 25 gm 1X ONCE IV Last administered on 11:40; Start 09/22/16 at 12:00; Stop 09/22/16 at 12:01; Status DC Nitroglycerin (Nitrostat) 0.4 mg PRN Q5MIN PRN SL CHEST PAIN Last administered on 09/24/16 03:18; Start 09/22/16 at 12:00 Ondansetron HCl (Zofran) 4 mg PRN Q8HRS PRN IV NAUSEA/VOMITING; Start 09/22/16 at 12:30; Stop 09/23/16 at 12:29; Status DC Levofloxacin/ Dextrose (Levaquin Per Pharmacy) 1 each PRN DAILY PRN MC SEE COMMENTS; Start 09/22/16 at 12:45; Stop 09/25/16 at 15:18; Status DC Levofloxacin/ Dextrose 150 ml @ 100 mls/hr Q48H IV Last administered on 14:46; Start 09/22/16 at 13:00; Stop 10/01/16 at 14:42; Status DC Sodium Chloride 500 ml @ 1,000 mls/hr 1X ONCE IV Last administered on 13:10; Start 09/22/16 at 13:15; Stop 09/22/16 at 13:44; Status DC Dextrose (Dextrose 50%-Water Syringe) 25 gm 1X ONCE IV Last administered on 13:11; Start 09/22/16 at 13:15; Stop 09/22/16 at 13:16; Status DC Insulin Aspart (NovoLOG) 0-5 UNITS TIDWMEALS SQ Last administered on 09/22/16 18:17; Start 09/22/16 at 17:00; Stop 09/23/16 at 09:23; Status DC Dextrose (Dextrose 50%-Water Syringe) 12.5 gm PRN Q15MIN PRN IV SEE COMMENTS Last administered on 09/22/16 13:58; Start 09/22/16 at 14:00 Labetalol HCl (Normodyne) 20 mg PRN Q2HR PRN IVP HYPERTENSION, SEE COMMENTS Last administered on 09/30/16 16:25; Start 09/22/16 at 14:15; Stop 09/30/16 at 17 :24; Status DC Amlodipine Besylate (Norvasc) 10 mg DAILY PO ; Start 09/23/16 at 09:00; Status UNV Atorvastatin Calcium (Lipitor) 40 mg HS PO Last administered on 10/02/16 21:38 ; Start 09/22/16 at 21:00 Diltiazem HCl (Cardizem 24hr Cd) 240 mg DAILY PO Last administered on 08:50; Start 09/22/16 at 15:00 Isosorbide Mononitrate (Imdur) 120 mg DAILY PO Last administered on 10/03/16 08:49; Start 09/22/16 at 15:00 Albuterol/ Ipratropium (Duoneb) 3 ml STK-MED ONCE .ROUTE ; Start 09/22/16 at 15: 06; Stop 09/22/16 at 15:07; Status DC Albuterol/ Ipratropium (Duoneb) 3 ml RTQID NEB Last administered on 09/30/16 16 :29; Start 09/22/16 at 16:00; Stop 09/30/16 at 16:50; Status DC Budesonide (Pulmicort) 0.5 mg RTBID NEB Last administered on 10/03/16 07:18; Start 09/22/16 at 20:00 Magnesium Sulfate/ Dextrose 50 ml @ 25 mls/hr PRN DAILY PRN IV for Mag < 1.7 on am labs; Start 09/22/16 at 15:45 Sodium Chloride 1,000 ml @ 100 mls/hr Q10H IV Last administered on 09/23/16 01 :35; Start 09/22/16 at 15:45; Stop 09/23/16 at 07:45; Status DC Dextrose 1,000 ml @ 50 mls/hr Q20H IV Last administered on 09/22/16 17:39; Start 09/22/16 at 17:45; Stop 09/23/16 at 07:45; Status DC Insulin Aspart (NovoLOG) 0-9 UNITS TIDWMEALS SQ Last administered on 10/03/16 12:25; Start 09/23/16 at 12:00 Dextrose (Dextrose 50%-Water Syringe) 12.5 gm PRN Q15MIN PRN IV SEE COMMENTS; Start 09/23/16 at 09:30; Stop 09/23/16 at 12:56; Status DC Albuterol/ Ipratropium (Duoneb) 3 ml RTQID NEB ; Start 09/23/16 at 12:00; Stop at 12:56; Status DC Prednisone (Prednisone) 60 mg 1X ONCE PO Last administered on 09/23/16 10:00; Start 09/23/16 at 09:30; Stop 09/23/16 at 09:31; Status DC Benzonatate (Tessalon Perle) 100 mg [id number] PO Last administered on 10/03/16 08 :49; Start 09/23/16 at 09:30 Furosemide (Lasix) 20 mg 1X ONCE IVP Last administered on 09/23/16 17:30; Start 09/23/16 at 17:30; Stop 09/23/16 at 17:31; Status DC Furosemide (Lasix) 80 mg 1X ONCE IVP Last administered on 09/24/16 15:56; Start 09/24/16 at 11:00; Stop 09/24/16 at 11:03; Status DC Acetylcysteine (Mucomyst 20% Oral Solution) 1,200 mg BID PO Last administered on 09/26/16 08:51; Start 09/24/16 at 11:30; Stop 09/26/16 at 11:29; Status DC Darbepoetin Arsh (Aranesp) 60 mcg [id number] SQ Last administered on 10/01/16 21: 48; Start 09/24/16 at 21:00 Tramadol HCl (Ultram) 50 mg PRN Q6HRS PRN PO mild pain Last administered on 03:53; Start 09/24/16 at 11:30 Iohexol (Omnipaque 300 Mg/ml) 100 ml STK-MED ONCE .ROUTE ; Start 09/24/16 at 12: 12; Stop 09/24/16 at 12:13; Status DC Lidocaine/Sodium Bicarbonate (Buffered Lidocaine 1%) 20 ml STK-MED ONCE IJ ; Start 09/24/16 at 12:12; Stop 09/24/16 at 12:13; Status DC Midazolam HCl (Versed) 5 mg STK-MED ONCE .ROUTE ; Start 09/24/16 at 12:12; Stop 09/24/16 at 12:13; Status DC Fentanyl Citrate (Fentanyl 5ml Vial) 250 mcg STK-MED ONCE .ROUTE ; Start at 12:12; Stop 09/24/16 at 12:13; Status DC Heparin Sodium/ Sodium Chloride 2,000 ml @ As Directed STK-MED ONCE .ROUTE ; Start 09/24/16 at 12:13; Stop 09/24/16 at 12:14; Status DC Iodixanol (Visipaque 320) 100 ml STK-MED ONCE .ROUTE ; Start 09/24/16 at 12:13; Stop 09/24/16 at 12:14; Status DC Heparin Sodium (Porcine) (Heparin Sodium) 10,000 unit STK-MED ONCE .ROUTE ; Start 09/24/16 at 12:15; Stop 09/24/16 at 12:16; Status DC Insulin Detemir (Levemir) 10 units QHS SQ Last administered on 10/02/16 21:37 ; Start 09/24/16 at 21:00 Heparin Sodium/ Sodium Chloride 1,000 unit 1X ONCE IART Last administered on 14:52; Start 09/24/16 at 14:00; Stop 09/24/16 at 14:01; Status DC Lidocaine/Sodium Bicarbonate (Buffered Lidocaine 1%) 20 ml 1X ONCE IJ Last administered on 09/24/16 14:00; Start 09/24/16 at 14:00; Stop 09/24/16 at 14:01; Status DC Midazolam HCl (Versed) 5 mg 1X ONCE IV ; Start 09/24/16 at 14:00; Stop 09/24/16 at 14:01; Status DC Fentanyl Citrate (Fentanyl 5ml Vial) 250 mcg 1X ONCE IV ; Start 09/24/16 at 14: 00; Stop 09/24/16 at 14:01; Status DC Iohexol (Omnipaque 300 Mg/ml) 100 ml 1X ONCE IART Last administered on 14:51; Start 09/24/16 at 14:00; Stop 09/24/16 at 14:01; Status DC Iodixanol (Visipaque 320) 100 ml 1X ONCE IART Last administered on 09/24/16 14 :00; Start 09/24/16 at 14:00; Stop 09/24/16 at 14:01; Status DC Heparin Sodium (Porcine) (Heparin Sodium) 4,000 unit 1X ONCE IV Last administered on 09/24/16 14:00; Start 09/24/16 at 14:00; Stop 09/24/16 at 14:01; Status DC Info (Do NOT chart on this entry -- for MONITORING) 1 each PRN DAILY PRN MC SEE COMMENTS; Start 09/24/16 at 14:15; Stop 09/26/16 at 14:14; Status DC Clopidogrel Bisulfate (Plavix) 300 mg 1X ONCE PO Last administered on 16:01; Start 09/24/16 at 15:30; Stop 09/24/16 at 15:31; Status DC Clopidogrel Bisulfate (Plavix) 75 mg DAILYWBKFT PO Last administered on 08:49; Start 09/25/16 at 08:00; Stop 10/25/16 at 08:00 Ringer's Solution 1,000 ml @ 100 mls/hr Q10H IV ; Start 09/27/16 at 00:01; Stop 09/27/16 at 00:01; Status DC Cefazolin Sodium/ Dextrose 50 ml @ 100 mls/hr 1X PREOP PRN IV SEE COMMENTS Last administered on 09/27/16 13:22; Start 09/27/16 at 06:00; Stop 09/27/16 at 18: 00; Status DC Heparin Sodium (Porcine) 5000 unit/Sodium Chloride 505 ml @ 505 mls/hr 1X PERIOP ONCE IRR Last administered on 09/27/16 13:36; Start 09/27/16 at 07:15; Stop 09/27/16 at 08:14; Status DC Cefazolin Sodium 1 gm/Sodium Chloride 500 ml @ 500 mls/hr 1X PERIOP ONCE IRR Last administered on 6/5/17at 13:36; Start 09/27/16 at 07:15; Stop 09/27/16 at 08: 14; Status DC Furosemide (Lasix) 40 mg 1X ONCE IVP Last administered on 09/27/16t 13:20; Start 09/27/16 at 11:00; Stop 09/27/16 at 11:01; Status DC Lidocaine HCl (Lidocaine Pf 2% Vial) 5 ml STK-MED ONCE .ROUTE ; Start 09/27/16 at 11:42; Stop 09/27/16 at 11:43; Status DC Ondansetron HCl (Zofran) 4 mg STK-MED ONCE .ROUTE ; Start 09/27/16 at 11:42; Stop 09/27/16 at 11:43; Status DC Famotidine (Pepcid) 20 mg STK-MED ONCE .ROUTE ; Start 09/27/16 at 11:42; Stop 09/27/16 at 11:43; Status DC Dexamethasone Sodium Phosphate (Decadron) 20 mg STK-MED ONCE .ROUTE ; Start 09/27 at 11:42; Stop 09/27/16 at 11:43; Status DC Propofol 20 ml @ As Directed STK-MED ONCE IV ; Start 09/27/16 at 11:42; Stop 09/27 at 11:43; Status DC Rocuronium [place] (Zemuron) 50 mg STK-MED ONCE .ROUTE ; Start 09/27/16 at 11:45 ; Stop 09/27/16 at 11:46; Status DC Fentanyl Citrate (Fentanyl 5ml Vial) 250 mcg STK-MED ONCE .ROUTE ; Start at 11:46; Stop 09/27/16 at 11:47; Status DC Cellulose 1 each STK-MED ONCE .ROUTE ; Start 09/27/16 at 12:04; Stop 09/27/16 at 12:05; Status DC Bupivacaine HCl (Marcaine 0.25%) 50 ml STK-MED ONCE .ROUTE ; Start 09/27/16 at 12 :04; Stop 09/27/16 at 12:05; Status DC Iohexol (Omnipaque 300 Mg/ml) 100 ml STK-MED ONCE .ROUTE ; Start 09/27/16 at 12: 05; Stop 09/27/16 at 12:06; Status DC Gelatin (Gelfoam Size 100) 1 each STK-MED ONCE .ROUTE ; Start 09/27/16 at 12:05 ; Stop 09/27/16 at 12:06; Status DC Papaverine HCl 60 mg STK-MED ONCE .ROUTE ; Start 09/27/16 at 12:05; Stop 09/27/16 at 12:06; Status DC Thrombin 20,000 unit STK-MED ONCE TP ; Start 09/27/16 at 12:05; Stop 09/27/16 at 12:06; Status DC Lidocaine HCl 1 ml STK-MED ONCE .ROUTE ; Start 09/27/16 at 12:35; Stop 09/27/16 at 12:36; Status DC Ringer's Solution 1,000 ml @ 75 mls/hr [id number] IV Last administered on t 17:03; Start 09/27/16 at 13:30; Stop 09/28/16 at 12:44; Status DC Furosemide (Lasix) 40 mg STK-MED ONCE .ROUTE ; Start 09/27/16 at 13:34; Stop 09/27 at 13:35; Status DC Heparin Sodium (Porcine) (Heparin Sodium) 10,000 unit STK-MED ONCE .ROUTE ; Start 09/27/16 at 14:29; Stop 09/27/16 at 14:30; Status DC Glycopyrrolate (Robinul) 1 mg STK-MED ONCE .ROUTE ; Start 09/27/16 at 16:00; Stop 09/27/16 at 16:01; Status DC Neostigmine Methylsulfate 5 mg STK-MED ONCE .ROUTE ; Start 09/27/16 at 16:00; Stop 09/27/16 at 16:01; Status DC Desflurane (Suprane) 90 ml STK-MED ONCE IH ; Start 09/27/16 at 16:00; Stop at 16:01; Status DC Bacitracin 14 margie STK-MED ONCE TP Last administered on 09/27/16t 16:12; Start at 16:14; Stop 09/27/16 at 16:15; Status DC Propofol 20 ml @ As Directed STK-MED ONCE IV ; Start 09/27/16 at 16:28; Stop 09/27 at 16:29; Status DC Fentanyl Citrate (Fentanyl 2ml Vial) 25 mcg PRN Q5MIN PRN IV Acute Pain; Start 09/27/16 at 16:45; Stop 09/28/16 at 16:44; Status DC Fentanyl Citrate (Fentanyl 2ml Vial) 50 mcg PRN Q5MIN PRN IV Acute Pain Last administered on 09/27/16 17:21; Start 09/27/16 at 16:45; Stop 09/28/16 at 16:44; Status DC Morphine Sulfate 2 mg PRN Q10MIN PRN IV Mild Pain Last administered on 17:00; Start 09/27/16 at 16:45; Stop 09/28/16 at 16:44; Status DC Hydromorphone HCl (Dilaudid) 0.5 mg PRN Q10MIN PRN IV Moderate to severe pain; Start 09/27/16 at 16:45; Stop 09/28/16 at 16:44; Status DC Ondansetron HCl (Zofran) 4 mg PRN Q6HRS PRN IV Nausea, 2nd Choice; Start at 16:45; Stop 09/28/16 at 16:44; Status DC Prochlorperazine Edisylate (Compazine) 5 mg PRN Q6HRS PRN IV Nausea/Vomiting, 2nd Choice; Start 09/27/16 at 16:45; Stop 09/28/16 at 16:44; Status DC Haloperidol Lactate (Haldol) 5 mg STK-MED ONCE .ROUTE ; Start 09/27/16 at 17:28; Stop 09/27/16 at 17:29; Status DC Haloperidol Lactate (Haldol) 2.5 mg 1X PACU PRN IVP AGITATION Last administered on 09/27/16 18:07; Start 09/27/16 at 17:30; Stop 09/28/16 at 15:58; Status DC Furosemide (Lasix) 80 mg 1X ONCE IVP Last administered on 09/28/16 11:19; Start 09/28/16 at 11:00; Stop 09/28/16 at 11:01; Status DC Cefazolin Sodium/ Dextrose 50 ml @ 100 mls/hr 1X PREOP PRN IV LOKIE ENGINEER FOR OR; Start 09/30/16 at 06:00; Stop 09/30/16 at 08:00; Status DC Albuterol/ Ipratropium (Duoneb) 3 ml 1X ONCE NEB Last administered on 00:07; Start 09/29/16 at 00:00; Stop 09/29/16 at 00:12; Status DC Fentanyl Citrate (Fentanyl 2ml Vial) 25 mcg PRN Q5MIN PRN IV MILD PAIN; Start 09/30/16 at 07:00; Stop 10/01/16 at 06:59; Status DC Fentanyl Citrate (Fentanyl 2ml Vial) 50 mcg PRN Q5MIN PRN IV MODERATE PAIN Last administered on 09/30/16 16:19; Start 09/30/16 at 07:00; Stop 10/01/16 at 06: 59; Status DC Morphine Sulfate 1 mg PRN Q10MIN PRN IV SEVERE PAIN; Start 09/30/16 at 07:00; Stop 10/01/16 at 06:59; Status DC Ringer's Solution 1,000 ml @ 0 mls/hr Q0M IV ; Start 09/30/16 at 07:00; Stop 09/30/16 at 18:59; Status DC Lidocaine HCl 2 ml PRN 1X PRN ID PRIOR TO IV START; Start 09/30/16 at 07:00; Stop 10/01/16 at 06:59; Status DC Hydromorphone HCl (Dilaudid) 0.5 mg PRN Q10MIN PRN IV SEV PAIN, Second choice; Start 09/30/16 at 07:00; Stop 10/01/16 at 06:59; Status DC Prochlorperazine Edisylate (Compazine) 5 mg PACU PRN PRN IV NAUSEA, MRX1; Start 09/30/16 at 07:00; Stop 10/01/16 at 06:59; Status DC Lidocaine HCl 48 ml/Sodium Bicarbonate 12 meq/Miscellaneous 60 ml @ 60 mls/hr 1X PERIOP ONCE ID Last administered on 09/30/16 14:54; Start 09/30/16 at 06:00 ; Stop 09/30/16 at 06:59; Status DC Cefazolin Sodium/ Dextrose 50 ml @ 100 mls/hr 1X PREOP IV Last administered on 09/30/16 17:02; Start 09/30/16 at 11:45; Stop 10/01/16 at 18:00; Status DC Midazolam HCl (Versed) 2 mg STK-MED ONCE .ROUTE ; Start 09/30/16 at 11:45; Stop 09/30/16 at 11:46; Status DC Fentanyl Citrate (Fentanyl 2ml Vial) 100 mcg STK-MED ONCE .ROUTE ; Start at 11:45; Stop 09/30/16 at 11:46; Status DC Propofol 20 ml @ As Directed STK-MED ONCE IV ; Start 09/30/16 at 11:46; Stop 09/30 at 11:47; Status DC Dexamethasone Sodium Phosphate (Decadron) 20 mg STK-MED ONCE .ROUTE ; Start 09/30 at 11:46; Stop 09/30/16 at 11:47; Status DC Ondansetron HCl (Zofran) 4 mg STK-MED ONCE .ROUTE ; Start 09/30/16 at 11:46; Stop 09/30/16 at 11:47; Status DC Lidocaine HCl (Lidocaine Pf 2% Vial) 5 ml STK-MED ONCE .ROUTE ; Start 09/30/16 at 11:46; Stop 09/30/16 at 11:47; Status DC Silver Sulfadiazine (Silvadene) 25 margie STK-MED ONCE TP ; Start 09/30/16 at 13:37 ; Stop 09/30/16 at 13:38; Status DC Dextrose (Dextrose 50%-Water Syringe) 12.5 gm 1X ONCE IV Last administered on 09/30/16 14:07; Start 09/30/16 at 14:00; Stop 09/30/16 at 14:02; Status DC Bacitracin 14 margie STK-MED ONCE TP Last administered on 09/30/16 15:29; Start at 15:06; Stop 09/30/16 at 15:07; Status DC Albuterol Sulfate (Ventolin Neb Soln) 2.5 mg STK-MED ONCE .ROUTE ; Start at 16:05; Stop 09/30/16 at 16:06; Status DC Albuterol Sulfate (Ventolin Neb Soln) 2.5 mg 1X ONCE NEB Last administered on 09/30/16 16:24; Start 09/30/16 at 16:30; Stop 09/30/16 at 16:31; Status DC Albuterol/ Ipratropium (Duoneb) 3 ml RTQID NEB Last administered on 10/03/16 11:11; Start 09/30/16 at 20:00 Hydralazine HCl (Apresoline) 10 mg PRN Q4HRS PRN IVP for SBP > 170 Last administered on 10/03/16 03:56; Start 09/30/16 at 17:30 Acetaminophen/ Hydrocodone Bitart (Lortab 5/325) 1 tab PRN Q6HRS PRN PO moderate - severe pain; Start 10/01/16 at 14:45 Morphine Sulfate 2 mg PRN Q2HR PRN IV PAIN; Start 10/01/16 at 14:45 Amlodipine Besylate (Norvasc) 5 mg DAILY PO Last administered on 10/03/16 08: 49; Start 10/01/16 at 15:00 Furosemide (Lasix) 40 mg 1X ONCE IVP Last administered on 10/01/16 17:04; Start 10/01/16 at 15:15; Stop 10/01/16 at 15:16; Status DC Albuterol/ Ipratropium (Duoneb) 3 ml 1X ONCE NEB Last administered on 00:27; Start 10/03/16 at 00:30; Stop 10/03/16 at 00:31; Status DC Active Scripts Active Levofloxacin 750 Mg Tablet 1 Tab PO DAILY Levemir Flextouch (Insulin Detemir) 100 Unit/1 Ml Insuln.pen 20 Units SQ QHS 30 Days Novolog Flexpen (Insulin Aspart) 100 Unit/1 Ml Insuln.pen 10 Units SQ TIDAC 30 Days Reported Percocet 5-325 Mg Tablet (Oxycodone/Acetaminophen) 1 Each Tablet 1 Tab PO PRN Q6HRS PRN Advair 100-50 Diskus (Fluticasone/Salmeterol) 1 Each Disk.w.dev 1 Puff IH BID Spiriva Respimat (Tiotropium [place]) 4 Gm Mist.inhal 2.5 Gm IH DAILY Symbicort 160-4.5 Mcg Inhaler (Budesonide/Formoterol Fumarate) 10.2 Gm Hfa.aer.ad 2 Puff IH BID Atorvastatin Calcium 20 Mg Tablet 20 Mg PO HS Lisinopril-Hctz 10-12.5 Mg Tab (Lisinopril/Hydrochlorothiazide) 1 Each Tablet 1 Tab PO DAILY Isosorbide Mononitrate Er (Isosorbide Mononitrate) 120 Mg Tab.er.24h 120 Mg PO DAILY Novolin N (Nph, Human Insulin Isophane) 100 Unit/1 Ml Vial 0 SQ Promethazine-Codeine Syrup (Promethazine Hcl/Codeine) 118 Ml Syrup 5 Ml PO Q4- 6HRS Diltiazem 24HR Cd (Diltiazem Hcl) 240 Mg Cap.er.24h 240 Mg PO DAILY NITROGLYCERIN SubLingual (Nitroglycerin) 0.4 Mg Tab.subl 0.4 Mg SL PRN Q5MIN PRN Atorvastatin Calcium 40 Mg Tablet 40 Mg PO HS Vitals/I & O Vital Sign - Last 24 Hours 10/02/16 10/02/16 10/02/16 10/02/16 15:05 19:22 19:35 20:02 Temp 97.7 98.1 97.7 98.1 Pulse 84 91 Resp B/P (MAP) 156/78 (104) 157/63 (94) Pulse Ox 90 92 99 O2 Delivery Room Air Room Air Nasal Cannula Nasal Cannula O2 Flow Rate 2.0 2.0 10/02/16 10/03/16 10/03/16 10/03/16 23:15 00:27 03:20 03:56 Temp 98.7 98.1 98.7 98.1 Pulse 100 92 92 Resp B/P (MAP) 170/94 (119) 173/95 (121) 173/95 Pulse Ox 91 98 96 O2 Delivery Room Air Nasal Cannula Nasal Cannula O2 Flow Rate 2.0 2.0 10/03/16 10/03/16 10/03/16 10/03/16 07:00 07:18 08:03 08:49 Temp 97.8 97.8 Pulse 86 86 Resp 22 B/P (MAP) 155/80 (105) 155/80 Pulse Ox 96 95 O2 Delivery Nasal Cannula Room Air Nasal Cannula O2 Flow Rate 2.0 2.0 10/03/16 10/03/16 10/03/16 10/03/16 08:49 08:50 11:00 11:12 Temp 98.2 98.2 Pulse 86 86 92 Resp 20 B/P (MAP) 155/80 155/80 157/84 (108) Pulse Ox 94 97 O2 Delivery Nasal Cannula Nasal Cannula O2 Flow Rate 2.0 2.0 Intake and Output 10/02/16 10/02/16 10/03/16 15:00 23:00 07:00 Intake Total 1300 ml 120 ml Output Total 550 ml 700 ml Balance 750 ml -580 ml VIKASH UMANZOR MD Oct 03, 2016 12:38
[2016-10-03] MEDS ORDERED: amLODIPine BESYLATE 5 MG TABLET PO ONE (13:00)
[2016-10-03 15:00] VITALS: BP 150/76
[2016-10-03 19:30] VITALS: BP 138/59
[2016-10-03] MEDS: ATORVASTATIN CALCIUM 40 MG TABLET. PO SCH (21:19)
[2016-10-03] MEDS: traMADol 50 MG TABLET PO PRN (21:19)
[2016-10-03] MEDS: INSULIN DETEMIR 300 UNITS/3 ML INSULN.PEN. SQ SCH (21:24)
[2016-10-03 23:05] VITALS: BP 168/93
--- NOTE | 2016-10-03 23:24 | PDOC ---
Provider Note Provider Note RENAL F/U : KIRIT S : Resting comfortably. No new c/o O : VSS Afebrile. Neck : Supple Lungs : Non labored. CVS : RRR Abd : Benign in appearance, without distention. Neuro : Awake. Labs reviewed. A/P : ARF/ATN HTN w CKD III EDEMA CHF. Cr stable. Recheck in am. Vascular surgery done. POD # 3 CPM. DENIS BETH MD Oct 03, 2016 23:24
[2016-10-04] MEDS ORDERED: IPRATRPIUM/ALBUTEROL 0.5/2.5MG 3 ML NEBU. NEB ONE (03:00)
[2016-10-04 03:30] VITALS: BP 153/78
[2016-10-04 05:20] LABS: ALBUMIN 2.3 g/dL (3.4-5.0); ALBUMIN/GLOBULIN RATIO 0.6 (1.0-1.7); CALCIUM 8.6 mg/dL (8.5-10.1); CREATININE 1.7 mg/dL (0.7-1.3); GFR 47.9; POTASSIUM 4.4 mmol/L (3.5-5.1); TOTAL BILIRUBIN 0.4 mg/dL (0.2-1.0); TOTAL PROTEIN 6.4 g/dL (6.4-8.2)
[2016-10-04] MEDS: HYDROcodone/APAP 5/325MG 1 TAB TABLET PO PRN (06:16)
[2016-10-04 07:00] VITALS: BP 187/90
[2016-10-04] MEDS: IPRATRPIUM/ALBUTEROL 0.5/2.5MG 3 ML NEBU. NEB SCH ×4 (08:00→19:49)
[2016-10-04] MEDS: INSULIN ASPART 300 UNITS/3 ML INSULN.PEN SQ SCH ×3 (08:00→17:00)
[2016-10-04] MEDS: BUDESONIDE 0.5 MG/2 ML NEBU. NEB SCH ×2 (08:00→19:49)
[2016-10-04 08:10] LABS: HCO3 ABG 25 mmol/L (21-28); PCO2 ABG 46 mmHg (35-46); PH ABG 7.35 (7.35-7.45); PO2 ABG 89 mmHg (65-108); SAT O2 ABG 95 % (92-99)
[2016-10-04 08:16] LABS: FIO2 ABG 28
[2016-10-04] MEDS: hydrALAZINE 20 MG/ML VIAL. IVP PRN (08:20)
[2016-10-04] MEDS: ISOSORBIDE MONONITRATE ER 30 MG TAB.ER.24H PO SCH (08:43)
[2016-10-04] MEDS: CLOPIDOGREL BISULFATE 75 MG TABLET PO SCH (08:44)
[2016-10-04] MEDS: BENZONATATE 100 MG CAPSULE. PO SCH ×3 (08:44→21:29)
[2016-10-04] MEDS: amLODIPine BESYLATE 10 MG TABLET PO SCH (08:44)
[2016-10-04] MEDS ORDERED: ANTI-COAG MONITOR BY PHARMACY. MC PRN (08:45)
[2016-10-04] MEDS ORDERED: FUROSEMIDE 100 MG/10 ML VIAL. IVP ONE ×2 (10:15→16:00)
--- NOTE | 2016-10-04 10:23 | RAD ---
EXAM: Chest one view. HISTORY: Wheezing. COMPARISON: 09/23/2016. FINDINGS: A frontal view of the chest is obtained. A right internal jugular hemodialysis catheter appears kinked at the skin. It has its tip in the right atrium. There are small pleural effusions bilaterally. Interstitial opacities indicate mild pulmonary edema. There is no pneumothorax. The heart is moderately enlarged. A component of right basilar volume loss is unchanged. There are atherosclerotic calcifications of the aorta. IMPRESSION: 1. Small bilateral pleural effusions and mild to moderate pulmonary edema. 2. Moderate cardiomegaly. 3. Stable right-sided volume loss. Correlate for prior partial pneumonectomy. 4. The hemodialysis catheter appears kinked at the skin.
[2016-10-04 11:00] VITALS: BP 158/76
--- NOTE | 2016-10-04 11:03 | PDOC ---
Renal-Progress Notes Subjective Notes Notes SOMNOLENT History of Present Illness Hx of present illness WORSE TODAY PER NS Vitals Vitals Vital Signs Date Time Temp Pulse Resp B/P (MAP) Pulse Ox O2 Delivery O2 Flow Rate FiO2 10/04/16 10:48 Nasal Cannula 2.0 10/04/16 08:44 88 187/90 10/04/16 08:00 97 10/04/16 07:00 98.1 20 98.1 Weight Weight [ ] I.O. Intake and Output Intake and Output 10/04/16 07:00 Intake Total 300 ml Output Total 950 ml Balance -650 ml Intake Oral 300 ml Output Urine Total 950 ml # Bowel Movements 1 Labs Labs Laboratory Tests Test 10/03/16 11:31 10/03/16 16:29 10/03/16 20:53 10/04/16 04:45 Glucose (Fingerstick) 217 mg/dL (70-99) 150 mg/dL (70-99) 232 mg/dL (70-99) Sodium Level 139 mmol/L (136-145) Potassium Level 4.4 mmol/L (3.5-5.1) Chloride Level 103 mmol/L (98-107) Carbon Dioxide Level 31 mmol/L (21-32) Anion Gap 5 (6-14) Blood Urea Nitrogen 39 mg/dL (8-26) Creatinine 1.7 mg/dL (0.7-1.3) Estimated GFR (Cockcroft-Gault) 47.9 BUN/Creatinine Ratio 23 (6-20) Glucose Level 118 mg/dL (70-99) Calcium Level 8.6 mg/dL (8.5-10.1) Total Bilirubin 0.4 mg/dL (0.2-1.0) Aspartate Amino Transf (AST/SGOT) 18 U/L (15-37) Alanine Aminotransferase (ALT/SGPT) 18 U/L (16-63) Alkaline Phosphatase 88 U/L (46-116) Total Protein 6.4 g/dL (6.4-8.2) Albumin 2.3 g/dL (3.4-5.0) Albumin/Globulin Ratio 0.6 (1.0-1.7) Test 10/04/16 08:10 O2 Saturation 95 % (92-99) Arterial Blood pH 7.35 (7.35-7.45) Arterial Blood pCO2 at Patient Temp 46 mmHg (35-46) Arterial Blood pO2 at Patient Temp 89 mmHg (65-108) Arterial Blood HCO3 25 mmol/L (21-28) Arterial Blood Base Excess -1 mmol/L (-3-3) FiO2 28 Micro Micro Microbiology 09/22/16 Blood Culture - Final, Complete NO GROWTH AFTER 5 DAYS 09/30/16 Anaerobic/Aerobic Culture - Final, Complete 09/30/16 Anaerobic Culture Result 1 (MARÍA) - Final, Complete 09/30/16 Aerobic Culture - Final, Complete 09/30/16 Aerobic Culture Result 1 (MARÍA) - Final, Complete Review of Systems Constitutional: yes: no symptom reported Physical Exam General Appearance: no apparent distress Skin: warm Respiratory: decreased breath sounds Heart: S1S2 Abdomen: bowel sounds present Genitourinary: bladder flat Neurology: other (SOMNOLENT) Musculoskeletal: Osteoarthritis Assessment Assessment IMP MET ENCEPHALOPATHY HYPERVOLEMIA WITH PROB CHF ? PULMONARY INFILTRATES AND PNA AECOPD RESP ACIDOSIS BASIM BETTER WITH CR 2.8 TO 1.7 CKD STAGE 3 WITH CR OF 1.5-2.0 PLAN IV LASIX PULMONARY EVAL AND TX ERIKA IBARRA MD Oct 04, 2016 11:03
--- NOTE | 2016-10-04 11:08 | PDOC ---
SURGICAL PROGRESS NOTE Subjective Patient was seen at the bedside this morning and he was receiving Lasix therapy for volume overload. Otherwise there were no specific complaints overnight. His pain is under good control. Vital Signs Vital Signs Date Time Temp Pulse Resp B/P (MAP) Pulse Ox O2 Delivery O2 Flow Rate FiO2 10/04/16 10:48 Nasal Cannula 2.0 10/04/16 08:44 88 187/90 10/04/16 08:00 97 10/04/16 07:00 98.1 20 98.1 I&O Intake and Output 10/04/16 07:00 Intake Total 300 ml Output Total 950 ml Balance -650 ml Intake Oral 300 ml Output Urine Total 950 ml # Bowel Movements 1 PATIENT HAS A BRUSH: Yes General: Alert, Oriented X3, Cooperative, No acute distress HEENT: Atraumatic, PERRLA Lungs: Other (course upper respiratory breath sounds bilaterally, scattered rhonchi bilaterally) Heart: Regular rate, No murmurs, Gallops, Rubs Abdomen: Normal bowel sounds, Soft, No tenderness Extremities: Other (incisions in the right lower sternum are clean dry and intact, the patient has a palpable graft pulse in the right lower extremity, the toe AP sedation sites are clean and dry, the heel debridement site is stable with early granulation tissue) Skin: No breakdown Neuro: Normal tone Labs Laboratory Tests Test 10/02/16 11:43 10/02/16 16:26 10/02/16 20:50 10/03/16 07:45 Glucose (Fingerstick) 137 mg/dL (70-99) 240 mg/dL (70-99) 193 mg/dL (70-99) 96 mg/dL (70-99) Test 10/03/16 11:31 10/03/16 16:29 10/03/16 20:53 10/04/16 04:45 Glucose (Fingerstick) 217 mg/dL (70-99) 150 mg/dL (70-99) 232 mg/dL (70-99) Sodium Level 139 mmol/L (136-145) Potassium Level 4.4 mmol/L (3.5-5.1) Chloride Level 103 mmol/L (98-107) Carbon Dioxide Level 31 mmol/L (21-32) Anion Gap 5 (6-14) Blood Urea Nitrogen 39 mg/dL (8-26) Creatinine 1.7 mg/dL (0.7-1.3) Estimated GFR (Cockcroft-Gault) 47.9 BUN/Creatinine Ratio 23 (6-20) Glucose Level 118 mg/dL (70-99) Calcium Level 8.6 mg/dL (8.5-10.1) Total Bilirubin 0.4 mg/dL (0.2-1.0) Aspartate Amino Transf (AST/SGOT) 18 U/L (15-37) Alanine Aminotransferase (ALT/SGPT) 18 U/L (16-63) Alkaline Phosphatase 88 U/L (46-116) Total Protein 6.4 g/dL (6.4-8.2) Albumin 2.3 g/dL (3.4-5.0) Albumin/Globulin Ratio 0.6 (1.0-1.7) Test 10/04/16 08:10 O2 Saturation 95 % (92-99) Arterial Blood pH 7.35 (7.35-7.45) Arterial Blood pCO2 at Patient Temp 46 mmHg (35-46) Arterial Blood pO2 at Patient Temp 89 mmHg (65-108) Arterial Blood HCO3 25 mmol/L (21-28) Arterial Blood Base Excess -1 mmol/L (-3-3) FiO2 28 Laboratory Tests Test 10/03/16 11:31 10/03/16 16:29 10/03/16 20:53 10/04/16 04:45 Glucose (Fingerstick) 217 mg/dL (70-99) 150 mg/dL (70-99) 232 mg/dL (70-99) Sodium Level 139 mmol/L (136-145) Potassium Level 4.4 mmol/L (3.5-5.1) Chloride Level 103 mmol/L (98-107) Carbon Dioxide Level 31 mmol/L (21-32) Anion Gap 5 (6-14) Blood Urea Nitrogen 39 mg/dL (8-26) Creatinine 1.7 mg/dL (0.7-1.3) Estimated GFR (Cockcroft-Gault) 47.9 BUN/Creatinine Ratio 23 (6-20) Glucose Level 118 mg/dL (70-99) Calcium Level 8.6 mg/dL (8.5-10.1) Total Bilirubin 0.4 mg/dL (0.2-1.0) Aspartate Amino Transf (AST/SGOT) 18 U/L (15-37) Alanine Aminotransferase (ALT/SGPT) 18 U/L (16-63) Alkaline Phosphatase 88 U/L (46-116) Total Protein 6.4 g/dL (6.4-8.2) Albumin 2.3 g/dL (3.4-5.0) Albumin/Globulin Ratio 0.6 (1.0-1.7) Test 10/04/16 08:10 O2 Saturation 95 % (92-99) Arterial Blood pH 7.35 (7.35-7.45) Arterial Blood pCO2 at Patient Temp 46 mmHg (35-46) Arterial Blood pO2 at Patient Temp 89 mmHg (65-108) Arterial Blood HCO3 25 mmol/L (21-28) Arterial Blood Base Excess -1 mmol/L (-3-3) FiO2 28 I have reviewed the following I did review the patient's chest x-ray that was performed today. Problem List Problems Medical Problems: (1) Hypoglycemia Status: Acute Assessment/Plan Assessment and plan: Status post right popliteal to dorsalis pedis bypass. Patient from a surgical standpoint is doing well with intact graft pulse at the level of the ankle. His toe amputation sites and heel debridement site remained clean. Patient still deconditioned from surgery and will require ongoing physical and occupational therapy. Patient will require senior care facility placement once medically stable. Respiratory failure: Patient is receiving diuresis for pulmonary congestion and a Brush catheter will remain until adequate diuresis is obtained. Once stable from a pulmonary standpoint, disposition planning can be pursued to senior care facility. We will continue to follow patient clinical status while in the hospital. 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
--- NOTE | 2016-10-04 11:27 | PDOC ---
PROGRESS NOTES Chief Complaint Chief Complaint cc: AMS Hypoglycemia with acute encephalopathy POA, resolved: SSI, Respiratory failure: Acute on Chronic, CXR showed pleural effusion, s/o IV lasix 80 mg, intake and ouput will order Echo, PRN breathing treatments. Severe pulmonary artery systolic pressure 70 mmHg. old records reviewed, Echo in 07/09, showed normal LVEF. will order limited ECHO. 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 wound care. HX bilateral PE with cardiac arrest ([facility] 2017) sec to PE COPD on home Oxygen DM2; insulin with HYPOGLYCEMIA: SSI with Levemir Renal failure: nephrology following. appreciate their recommendatons. HTN not controlled : prn hydralazine, continue current medications. see medications. Diastolic heart failure: stable. Intractable pain : PRN iv morphine with [place] Prognosis guarded Disposition: SNU placement, not ready for DC. labs reviewed. History of Present Illness History of Present Illness pain Controlled HTN not controlled. sitting in chair watching TV. Vitals Vitals Vital Signs Date Time Temp Pulse Resp B/P (MAP) Pulse Ox O2 Delivery O2 Flow Rate FiO2 10/04/16 11:00 97.9 97 26 158/76 (103) 90 Nasal Cannula 2.0 97.9 Physical Exam General: Alert, Oriented X3, Cooperative, No acute distress Heart: Regular rate, Normal S1, Normal S2, No murmurs, Gallops, Rubs Lungs: Crackles, Other (bl decreased bs) Abdomen: Normal bowel sounds, Soft, No tenderness Extremities: Other (incisions in the right lower sternum are clean dry and intact, the patient has a palpable graft pulse in the right lower extremity, the toe AP sedation sites are clean and dry, the heel debridement site is stable with early granulation tissue) Skin: No breakdown Labs LABS Laboratory Tests Test 10/03/16 11:31 10/03/16 16:29 10/03/16 20:53 10/04/16 04:45 Glucose (Fingerstick) 217 mg/dL (70-99) 150 mg/dL (70-99) 232 mg/dL (70-99) Sodium Level 139 mmol/L (136-145) Potassium Level 4.4 mmol/L (3.5-5.1) Chloride Level 103 mmol/L (98-107) Carbon Dioxide Level 31 mmol/L (21-32) Anion Gap 5 (6-14) Blood Urea Nitrogen 39 mg/dL (8-26) Creatinine 1.7 mg/dL (0.7-1.3) Estimated GFR (Cockcroft-Gault) 47.9 BUN/Creatinine Ratio 23 (6-20) Glucose Level 118 mg/dL (70-99) Calcium Level 8.6 mg/dL (8.5-10.1) Total Bilirubin 0.4 mg/dL (0.2-1.0) Aspartate Amino Transf (AST/SGOT) 18 U/L (15-37) Alanine Aminotransferase (ALT/SGPT) 18 U/L (16-63) Alkaline Phosphatase 88 U/L (46-116) Total Protein 6.4 g/dL (6.4-8.2) Albumin 2.3 g/dL (3.4-5.0) Albumin/Globulin Ratio 0.6 (1.0-1.7) Test 10/04/16 08:10 O2 Saturation 95 % (92-99) Arterial Blood pH 7.35 (7.35-7.45) Arterial Blood pCO2 at Patient Temp 46 mmHg (35-46) Arterial Blood pO2 at Patient Temp 89 mmHg (65-108) Arterial Blood HCO3 25 mmol/L (21-28) Arterial Blood Base Excess -1 mmol/L (-3-3) FiO2 28 Assessment and Plan Assessmemt and Plan Problems Medical Problems: (1) Hypoglycemia Status: Acute Problems: Comment Review of Relevant I have reviewed the following items valerie (where applicable) has been applied. Labs Laboratory Tests Test 10/02/16 11:43 10/02/16 16:26 10/02/16 20:50 10/03/16 07:45 Glucose (Fingerstick) 137 mg/dL (70-99) 240 mg/dL (70-99) 193 mg/dL (70-99) 96 mg/dL (70-99) Test 10/03/16 11:31 10/03/16 16:29 10/03/16 20:53 10/04/16 04:45 Glucose (Fingerstick) 217 mg/dL (70-99) 150 mg/dL (70-99) 232 mg/dL (70-99) Sodium Level 139 mmol/L (136-145) Potassium Level 4.4 mmol/L (3.5-5.1) Chloride Level 103 mmol/L (98-107) Carbon Dioxide Level 31 mmol/L (21-32) Anion Gap 5 (6-14) Blood Urea Nitrogen 39 mg/dL (8-26) Creatinine 1.7 mg/dL (0.7-1.3) Estimated GFR (Cockcroft-Gault) 47.9 BUN/Creatinine Ratio 23 (6-20) Glucose Level 118 mg/dL (70-99) Calcium Level 8.6 mg/dL (8.5-10.1) Total Bilirubin 0.4 mg/dL (0.2-1.0) Aspartate Amino Transf (AST/SGOT) 18 U/L (15-37) Alanine Aminotransferase (ALT/SGPT) 18 U/L (16-63) Alkaline Phosphatase 88 U/L (46-116) Total Protein 6.4 g/dL (6.4-8.2) Albumin 2.3 g/dL (3.4-5.0) Albumin/Globulin Ratio 0.6 (1.0-1.7) Test 10/04/16 08:10 O2 Saturation 95 % (92-99) Arterial Blood pH 7.35 (7.35-7.45) Arterial Blood pCO2 at Patient Temp 46 mmHg (35-46) Arterial Blood pO2 at Patient Temp 89 mmHg (65-108) Arterial Blood HCO3 25 mmol/L (21-28) Arterial Blood Base Excess -1 mmol/L (-3-3) FiO2 28 Laboratory Tests Test 10/03/16 11:31 10/03/16 16:29 10/03/16 20:53 10/04/16 04:45 Glucose (Fingerstick) 217 mg/dL (70-99) 150 mg/dL (70-99) 232 mg/dL (70-99) Sodium Level 139 mmol/L (136-145) Potassium Level 4.4 mmol/L (3.5-5.1) Chloride Level 103 mmol/L (98-107) Carbon Dioxide Level 31 mmol/L (21-32) Anion Gap 5 (6-14) Blood Urea Nitrogen 39 mg/dL (8-26) Creatinine 1.7 mg/dL (0.7-1.3) Estimated GFR (Cockcroft-Gault) 47.9 BUN/Creatinine Ratio 23 (6-20) Glucose Level 118 mg/dL (70-99) Calcium Level 8.6 mg/dL (8.5-10.1) Total Bilirubin 0.4 mg/dL (0.2-1.0) Aspartate Amino Transf (AST/SGOT) 18 U/L (15-37) Alanine Aminotransferase (ALT/SGPT) 18 U/L (16-63) Alkaline Phosphatase 88 U/L (46-116) Total Protein 6.4 g/dL (6.4-8.2) Albumin 2.3 g/dL (3.4-5.0) Albumin/Globulin Ratio 0.6 (1.0-1.7) Test 10/04/16 08:10 O2 Saturation 95 % (92-99) Arterial Blood pH 7.35 (7.35-7.45) Arterial Blood pCO2 at Patient Temp 46 mmHg (35-46) Arterial Blood pO2 at Patient Temp 89 mmHg (65-108) Arterial Blood HCO3 25 mmol/L (21-28) Arterial Blood Base Excess -1 mmol/L (-3-3) FiO2 28 Microbiology 09/22/16 Blood Culture - Final, Complete NO GROWTH AFTER 5 DAYS 09/30/16 Anaerobic/Aerobic Culture - Final, Complete 09/30/16 Anaerobic Culture Result 1 (MARÍA) - Final, Complete 09/30/16 Aerobic Culture - Final, Complete 09/30/16 Aerobic Culture Result 1 (MARÍA) - Final, Complete Medications Current Medications Dextrose (Dextrose 50%-Water Syringe) 25 gm STK-MED ONCE IV ; Start 09/22/16 at 10:39; Stop 09/22/16 at 10:40; Status DC Dextrose 500 ml @ 30 mls/hr 1X ONCE IV Last administered on 09/22/16 11:52; Start 09/22/16 at 11:45; Stop 09/22/16 at 17:38; Status DC Dextrose (Dextrose 50%-Water Syringe) 25 gm STK-MED ONCE IV ; Start 09/22/16 at 11:45; Stop 09/22/16 at 11:46; Status DC Dextrose (Dextrose 50%-Water Syringe) 25 gm 1X ONCE IV Last administered on t 10:45; Start 09/22/16 at 12:00; Stop 09/22/16 at 12:01; Status DC Dextrose (Dextrose 50%-Water Syringe) 25 gm 1X ONCE IV Last administered on 11:40; Start 09/22/16 at 12:00; Stop 09/22/16 at 12:01; Status DC Nitroglycerin (Nitrostat) 0.4 mg PRN Q5MIN PRN SL CHEST PAIN Last administered on 09/24/16 03:18; Start 09/22/16 at 12:00 Ondansetron HCl (Zofran) 4 mg PRN Q8HRS PRN IV NAUSEA/VOMITING; Start 09/22/16 at 12:30; Stop 09/23/16 at 12:29; Status DC Levofloxacin/ Dextrose (Levaquin Per Pharmacy) 1 each PRN DAILY PRN MC SEE COMMENTS; Start 09/22/16 at 12:45; Stop 09/25/16 at 15:18; Status DC Levofloxacin/ Dextrose 150 ml @ 100 mls/hr Q48H IV Last administered on 14:46; Start 09/22/16 at 13:00; Stop 10/01/16 at 14:42; Status DC Sodium Chloride 500 ml @ 1,000 mls/hr 1X ONCE IV Last administered on 13:10; Start 09/22/16 at 13:15; Stop 09/22/16 at 13:44; Status DC Dextrose (Dextrose 50%-Water Syringe) 25 gm 1X ONCE IV Last administered on 13:11; Start 09/22/16 at 13:15; Stop 09/22/16 at 13:16; Status DC Insulin Aspart (NovoLOG) 0-5 UNITS TIDWMEALS SQ Last administered on 09/22/16 18:17; Start 09/22/16 at 17:00; Stop 09/23/16 at 09:23; Status DC Dextrose (Dextrose 50%-Water Syringe) 12.5 gm PRN Q15MIN PRN IV SEE COMMENTS Last administered on 09/22/16 13:58; Start 09/22/16 at 14:00 Labetalol HCl (Normodyne) 20 mg PRN Q2HR PRN IVP HYPERTENSION, SEE COMMENTS Last administered on 09/30/16 16:25; Start 09/22/16 at 14:15; Stop 09/30/16 at 17 :24; Status DC Amlodipine Besylate (Norvasc) 10 mg DAILY PO ; Start 09/23/16 at 09:00; Status UNV Atorvastatin Calcium (Lipitor) 40 mg HS PO Last administered on 10/03/16 21:19 ; Start 09/22/16 at 21:00 Diltiazem HCl (Cardizem 24hr Cd) 240 mg DAILY PO Last administered on 08:44; Start 09/22/16 at 15:00 Isosorbide Mononitrate (Imdur) 120 mg DAILY PO Last administered on 10/04/16 08:43; Start 09/22/16 at 15:00 Albuterol/ Ipratropium (Duoneb) 3 ml STK-MED ONCE .ROUTE ; Start 09/22/16 at 15: 06; Stop 09/22/16 at 15:07; Status DC Albuterol/ Ipratropium (Duoneb) 3 ml RTQID NEB Last administered on 09/30/16 16 :29; Start 09/22/16 at 16:00; Stop 09/30/16 at 16:50; Status DC Budesonide (Pulmicort) 0.5 mg RTBID NEB Last administered on 10/04/16 08:00; Start 09/22/16 at 20:00 Magnesium Sulfate/ Dextrose 50 ml @ 25 mls/hr PRN DAILY PRN IV for Mag < 1.7 on am labs; Start 09/22/16 at 15:45 Sodium Chloride 1,000 ml @ 100 mls/hr Q10H IV Last administered on 09/23/16 01 :35; Start 09/22/16 at 15:45; Stop 09/23/16 at 07:45; Status DC Dextrose 1,000 ml @ 50 mls/hr Q20H IV Last administered on 09/22/16 17:39; Start 09/22/16 at 17:45; Stop 09/23/16 at 07:45; Status DC Insulin Aspart (NovoLOG) 0-9 UNITS TIDWMEALS SQ Last administered on 10/03/16 12:25; Start 09/23/16 at 12:00 Dextrose (Dextrose 50%-Water Syringe) 12.5 gm PRN Q15MIN PRN IV SEE COMMENTS; Start 09/23/16 at 09:30; Stop 09/23/16 at 12:56; Status DC Albuterol/ Ipratropium (Duoneb) 3 ml RTQID NEB ; Start 09/23/16 at 12:00; Stop at 12:56; Status DC Prednisone (Prednisone) 60 mg 1X ONCE PO Last administered on 09/23/16 10:00; Start 09/23/16 at 09:30; Stop 09/23/16 at 09:31; Status DC Benzonatate (Tessalon Perle) 100 mg [id number] PO Last administered on 10/04/16 08 :44; Start 09/23/16 at 09:30 Furosemide (Lasix) 20 mg 1X ONCE IVP Last administered on 09/23/16 17:30; Start 09/23/16 at 17:30; Stop 09/23/16 at 17:31; Status DC Furosemide (Lasix) 80 mg 1X ONCE IVP Last administered on 09/24/16 15:56; Start 09/24/16 at 11:00; Stop 09/24/16 at 11:03; Status DC Acetylcysteine (Mucomyst 20% Oral Solution) 1,200 mg BID PO Last administered on 09/26/16 08:51; Start 09/24/16 at 11:30; Stop 09/26/16 at 11:29; Status DC Darbepoetin Arsh (Aranesp) 60 mcg [id number] SQ Last administered on 10/01/16 21: 48; Start 09/24/16 at 21:00 Tramadol HCl (Ultram) 50 mg PRN Q6HRS PRN PO mild pain Last administered on 21:19; Start 09/24/16 at 11:30 Iohexol (Omnipaque 300 Mg/ml) 100 ml STK-MED ONCE .ROUTE ; Start 09/24/16 at 12: 12; Stop 09/24/16 at 12:13; Status DC Lidocaine/Sodium Bicarbonate (Buffered Lidocaine 1%) 20 ml STK-MED ONCE IJ ; Start 09/24/16 at 12:12; Stop 09/24/16 at 12:13; Status DC Midazolam HCl (Versed) 5 mg STK-MED ONCE .ROUTE ; Start 09/24/16 at 12:12; Stop 09/24/16 at 12:13; Status DC Fentanyl Citrate (Fentanyl 5ml Vial) 250 mcg STK-MED ONCE .ROUTE ; Start at 12:12; Stop 09/24/16 at 12:13; Status DC Heparin Sodium/ Sodium Chloride 2,000 ml @ As Directed STK-MED ONCE .ROUTE ; Start 09/24/16 at 12:13; Stop 09/24/16 at 12:14; Status DC Iodixanol (Visipaque 320) 100 ml STK-MED ONCE .ROUTE ; Start 09/24/16 at 12:13; Stop 09/24/16 at 12:14; Status DC Heparin Sodium (Porcine) (Heparin Sodium) 10,000 unit STK-MED ONCE .ROUTE ; Start 09/24/16 at 12:15; Stop 09/24/16 at 12:16; Status DC Insulin Detemir (Levemir) 10 units QHS SQ Last administered on 10/03/16 21:24 ; Start 09/24/16 at 21:00 Heparin Sodium/ Sodium Chloride 1,000 unit 1X ONCE IART Last administered on 14:52; Start 09/24/16 at 14:00; Stop 09/24/16 at 14:01; Status DC Lidocaine/Sodium Bicarbonate (Buffered Lidocaine 1%) 20 ml 1X ONCE IJ Last administered on 09/24/16 14:00; Start 09/24/16 at 14:00; Stop 09/24/16 at 14:01; Status DC Midazolam HCl (Versed) 5 mg 1X ONCE IV ; Start 09/24/16 at 14:00; Stop 09/24/16 at 14:01; Status DC Fentanyl Citrate (Fentanyl 5ml Vial) 250 mcg 1X ONCE IV ; Start 09/24/16 at 14: 00; Stop 09/24/16 at 14:01; Status DC Iohexol (Omnipaque 300 Mg/ml) 100 ml 1X ONCE IART Last administered on 14:51; Start 09/24/16 at 14:00; Stop 09/24/16 at 14:01; Status DC Iodixanol (Visipaque 320) 100 ml 1X ONCE IART Last administered on 09/24/16 14 :00; Start 09/24/16 at 14:00; Stop 09/24/16 at 14:01; Status DC Heparin Sodium (Porcine) (Heparin Sodium) 4,000 unit 1X ONCE IV Last administered on 09/24/16 14:00; Start 09/24/16 at 14:00; Stop 09/24/16 at 14:01; Status DC Info (Do NOT chart on this entry -- for MONITORING) 1 each PRN DAILY PRN MC SEE COMMENTS; Start 09/24/16 at 14:15; Stop 09/26/16 at 14:14; Status DC Clopidogrel Bisulfate (Plavix) 300 mg 1X ONCE PO Last administered on 16:01; Start 09/24/16 at 15:30; Stop 09/24/16 at 15:31; Status DC Clopidogrel Bisulfate (Plavix) 75 mg [id number] PO Last administered on 08:44; Start 09/25/16 at 08:00; Stop 10/25/16 at 08:00 Ringer's Solution 1,000 ml @ 100 mls/hr Q10H IV ; Start 09/27/16 at 00:01; Stop 09/27/16 at 00:01; Status DC Cefazolin Sodium/ Dextrose 50 ml @ 100 mls/hr 1X PREOP PRN IV SEE COMMENTS Last administered on 09/27/16 13:22; Start 09/27/16 at 06:00; Stop 09/27/16 at 18: 00; Status DC Heparin Sodium (Porcine) 5000 unit/Sodium Chloride 505 ml @ 505 mls/hr 1X PERIOP ONCE IRR Last administered on 09/27/16 13:36; Start 09/27/16 at 07:15; Stop 09/27/16 at 08:14; Status DC Cefazolin Sodium 1 gm/Sodium Chloride 500 ml @ 500 mls/hr 1X PERIOP ONCE IRR Last administered on 09/27/16 13:36; Start 09/27/16 at 07:15; Stop 09/27/16 at 08: 14; Status DC Furosemide (Lasix) 40 mg 1X ONCE IVP Last administered on 09/27/16 13:20; Start 09/27/16 at 11:00; Stop 09/27/16 at 11:01; Status DC Lidocaine HCl (Lidocaine Pf 2% Vial) 5 ml STK-MED ONCE .ROUTE ; Start 09/27/16 at 11:42; Stop 09/27/16 at 11:43; Status DC Ondansetron HCl (Zofran) 4 mg STK-MED ONCE .ROUTE ; Start 09/27/16 at 11:42; Stop 09/27/16 at 11:43; Status DC Famotidine (Pepcid) 20 mg STK-MED ONCE .ROUTE ; Start 09/27/16 at 11:42; Stop 09/27/16 at 11:43; Status DC Dexamethasone Sodium Phosphate (Decadron) 20 mg STK-MED ONCE .ROUTE ; Start 09/27 at 11:42; Stop 09/27/16 at 11:43; Status DC Propofol 20 ml @ As Directed STK-MED ONCE IV ; Start 09/27/16 at 11:42; Stop 09/27 at 11:43; Status DC Rocuronium [place] (Zemuron) 50 mg STK-MED ONCE .ROUTE ; Start 09/27/16 at 11:45 ; Stop 09/27/16 at 11:46; Status DC Fentanyl Citrate (Fentanyl 5ml Vial) 250 mcg STK-MED ONCE .ROUTE ; Start at 11:46; Stop 09/27/16 at 11:47; Status DC Cellulose 1 each STK-MED ONCE .ROUTE ; Start 09/27/16 at 12:04; Stop 09/27/16 at 12:05; Status DC Bupivacaine HCl (Marcaine 0.25%) 50 ml STK-MED ONCE .ROUTE ; Start 09/27/16 at 12 :04; Stop 09/27/16 at 12:05; Status DC Iohexol (Omnipaque 300 Mg/ml) 100 ml STK-MED ONCE .ROUTE ; Start 09/27/16 at 12: 05; Stop 09/27/16 at 12:06; Status DC Gelatin (Gelfoam Size 100) 1 each STK-MED ONCE .ROUTE ; Start 09/27/16 at 12:05 ; Stop 09/27/16 at 12:06; Status DC Papaverine HCl 60 mg STK-MED ONCE .ROUTE ; Start 09/27/16 at 12:05; Stop 09/27/16 at 12:06; Status DC Thrombin 20,000 unit STK-MED ONCE TP ; Start 09/27/16 at 12:05; Stop 09/27/16 at 12:06; Status DC Lidocaine HCl 1 ml STK-MED ONCE .ROUTE ; Start 09/27/16 at 12:35; Stop 09/27/16 at 12:36; Status DC Ringer's Solution 1,000 ml @ 75 mls/hr [id number] IV Last administered on 17:03; Start 09/27/16 at 13:30; Stop 09/28/16 at 12:44; Status DC Furosemide (Lasix) 40 mg STK-MED ONCE .ROUTE ; Start 09/27/16 at 13:34; Stop 09/27 at 13:35; Status DC Heparin Sodium (Porcine) (Heparin Sodium) 10,000 unit STK-MED ONCE .ROUTE ; Start 09/27/16 at 14:29; Stop 09/27/16 at 14:30; Status DC Glycopyrrolate (Robinul) 1 mg STK-MED ONCE .ROUTE ; Start 09/27/16 at 16:00; Stop 09/27/16 at 16:01; Status DC Neostigmine Methylsulfate 5 mg STK-MED ONCE .ROUTE ; Start 09/27/16 at 16:00; Stop 09/27/16 at 16:01; Status DC Desflurane (Suprane) 90 ml STK-MED ONCE IH ; Start 09/27/16 at 16:00; Stop at 16:01; Status DC Bacitracin 14 margie STK-MED ONCE TP Last administered on 09/27/16 16:12; Start at 16:14; Stop 09/27/16 at 16:15; Status DC Propofol 20 ml @ As Directed STK-MED ONCE IV ; Start 09/27/16 at 16:28; Stop 09/27 at 16:29; Status DC Fentanyl Citrate (Fentanyl 2ml Vial) 25 mcg PRN Q5MIN PRN IV Acute Pain; Start 09/27/16 at 16:45; Stop 09/28/16 at 16:44; Status DC Fentanyl Citrate (Fentanyl 2ml Vial) 50 mcg PRN Q5MIN PRN IV Acute Pain Last administered on 09/27/16 17:21; Start 09/27/16 at 16:45; Stop 09/28/16 at 16:44; Status DC Morphine Sulfate 2 mg PRN Q10MIN PRN IV Mild Pain Last administered on 17:00; Start 09/27/16 at 16:45; Stop 09/28/16 at 16:44; Status DC Hydromorphone HCl (Dilaudid) 0.5 mg PRN Q10MIN PRN IV Moderate to severe pain; Start 09/27/16 at 16:45; Stop 09/28/16 at 16:44; Status DC Ondansetron HCl (Zofran) 4 mg PRN Q6HRS PRN IV Nausea, 2nd Choice; Start at 16:45; Stop 09/28/16 at 16:44; Status DC Prochlorperazine Edisylate (Compazine) 5 mg PRN Q6HRS PRN IV Nausea/Vomiting, 2nd Choice; Start 09/27/16 at 16:45; Stop 09/28/16 at 16:44; Status DC Haloperidol Lactate (Haldol) 5 mg STK-MED ONCE .ROUTE ; Start 09/27/16 at 17:28; Stop 09/27/16 at 17:29; Status DC Haloperidol Lactate (Haldol) 2.5 mg 1X PACU PRN IVP AGITATION Last administered on 09/27/16 18:07; Start 09/27/16 at 17:30; Stop 09/28/16 at 15:58; Status DC Furosemide (Lasix) 80 mg 1X ONCE IVP Last administered on 09/28/16 11:19; Start 09/28/16 at 11:00; Stop 09/28/16 at 11:01; Status DC Cefazolin Sodium/ Dextrose 50 ml @ 100 mls/hr 1X PREOP PRN IV [employer] FOR [employer]; Start 09/30/16 at 06:00; Stop 09/30/16 at 08:00; Status DC Albuterol/ Ipratropium (Duoneb) 3 ml 1X ONCE NEB Last administered on 00:07; Start 09/29/16 at 00:00; Stop 09/29/16 at 00:12; Status DC Fentanyl Citrate (Fentanyl 2ml Vial) 25 mcg PRN Q5MIN PRN IV MILD PAIN; Start 09/30/16 at 07:00; Stop 10/01/16 at 06:59; Status DC Fentanyl Citrate (Fentanyl 2ml Vial) 50 mcg PRN Q5MIN PRN IV MODERATE PAIN Last administered on 09/30/16 16:19; Start 09/30/16 at 07:00; Stop 10/01/16 at 06: 59; Status DC Morphine Sulfate 1 mg PRN Q10MIN PRN IV SEVERE PAIN; Start 09/30/16 at 07:00; Stop 10/01/16 at 06:59; Status DC Ringer's Solution 1,000 ml @ 0 mls/hr Q0M IV ; Start 09/30/16 at 07:00; Stop 09/30/16 at 18:59; Status DC Lidocaine HCl 2 ml PRN 1X PRN ID PRIOR TO IV START; Start 09/30/16 at 07:00; Stop 10/01/16 at 06:59; Status DC Hydromorphone HCl (Dilaudid) 0.5 mg PRN Q10MIN PRN IV SEV PAIN, Second choice; Start 09/30/16 at 07:00; Stop 10/01/16 at 06:59; Status DC Prochlorperazine Edisylate (Compazine) 5 mg PACU PRN PRN IV NAUSEA, MRX1; Start 09/30/16 at 07:00; Stop 10/01/16 at 06:59; Status DC Lidocaine HCl 48 ml/Sodium Bicarbonate 12 meq/Miscellaneous 60 ml @ 60 mls/hr 1X PERIOP ONCE ID Last administered on 09/30/16 14:54; Start 09/30/16 at 06:00 ; Stop 09/30/16 at 06:59; Status DC Cefazolin Sodium/ Dextrose 50 ml @ 100 mls/hr 1X PREOP IV Last administered on 09/30/16 17:02; Start 09/30/16 at 11:45; Stop 10/01/16 at 18:00; Status DC Midazolam HCl (Versed) 2 mg STK-MED ONCE .ROUTE ; Start 09/30/16 at 11:45; Stop 09/30/16 at 11:46; Status DC Fentanyl Citrate (Fentanyl 2ml Vial) 100 mcg STK-MED ONCE .ROUTE ; Start at 11:45; Stop 09/30/16 at 11:46; Status DC Propofol 20 ml @ As Directed STK-MED ONCE IV ; Start 09/30/16 at 11:46; Stop 09/30 at 11:47; Status DC Dexamethasone Sodium Phosphate (Decadron) 20 mg STK-MED ONCE .ROUTE ; Start 09/30 at 11:46; Stop 09/30/16 at 11:47; Status DC Ondansetron HCl (Zofran) 4 mg STK-MED ONCE .ROUTE ; Start 09/30/16 at 11:46; Stop 09/30/16 at 11:47; Status DC Lidocaine HCl (Lidocaine Pf 2% Vial) 5 ml STK-MED ONCE .ROUTE ; Start 09/30/16 at 11:46; Stop 09/30/16 at 11:47; Status DC Silver Sulfadiazine (Silvadene) 25 margie STK-MED ONCE TP ; Start 09/30/16 at 13:37 ; Stop 09/30/16 at 13:38; Status DC Dextrose (Dextrose 50%-Water Syringe) 12.5 gm 1X ONCE IV Last administered on 09/30/16 14:07; Start 09/30/16 at 14:00; Stop 09/30/16 at 14:02; Status DC Bacitracin 14 margie STK-MED ONCE TP Last administered on 09/30/16 15:29; Start at 15:06; Stop 09/30/16 at 15:07; Status DC Albuterol Sulfate (Ventolin Neb Soln) 2.5 mg STK-MED ONCE .ROUTE ; Start at 16:05; Stop 09/30/16 at 16:06; Status DC Albuterol Sulfate (Ventolin Neb Soln) 2.5 mg 1X ONCE NEB Last administered on 09/30/16 16:24; Start 09/30/16 at 16:30; Stop 09/30/16 at 16:31; Status DC Albuterol/ Ipratropium (Duoneb) 3 ml RTQID NEB Last administered on 10/04/16 10:48; Start 09/30/16 at 20:00 Hydralazine HCl (Apresoline) 10 mg PRN Q4HRS PRN IVP for SBP > 170 Last administered on 10/04/16 08:20; Start 09/30/16 at 17:30 Acetaminophen/ Hydrocodone Bitart (Lortab 5/325) 1 tab PRN Q6HRS PRN PO moderate - severe pain Last administered on 10/04/16 06:16; Start 10/01/16 at 14 :45 Morphine Sulfate 2 mg PRN Q2HR PRN IV PAIN Last administered on 10/03/16 23:53 ; Start 10/01/16 at 14:45 Amlodipine Besylate (Norvasc) 5 mg DAILY PO Last administered on 10/03/16 08: 49; Start 10/01/16 at 15:00; Stop 10/03/16 at 12:37; Status DC Furosemide (Lasix) 40 mg 1X ONCE IVP Last administered on 10/01/16 17:04; Start 10/01/16 at 15:15; Stop 10/01/16 at 15:16; Status DC Albuterol/ Ipratropium (Duoneb) 3 ml 1X ONCE NEB Last administered on 00:27; Start 10/03/16 at 00:30; Stop 10/03/16 at 00:31; Status DC Amlodipine Besylate (Norvasc) 10 mg DAILY PO Last administered on 10/04/16 08: 44; Start 10/04/16 at 09:00 Amlodipine Besylate (Norvasc) 5 mg 1X ONCE PO Last administered on 10/03/16 13:00; Start 10/03/16 at 13:00; Stop 10/03/16 at 13:01; Status DC Albuterol/ Ipratropium (Duoneb) 3 ml 1X ONCE NEB Last administered on 02:59; Start 10/04/16 at 03:00; Stop 10/04/16 at 03:01; Status DC Enoxaparin Sodium (Lovenox 100mg Syringe) 100 mg Q12HR SQ Last administered on 10/04/16 08:45; Start 10/04/16 at 09:00 Info (Anti-Coagulation Monitoring By Pharmacy) 1 each PRN DAILY PRN MC SEE COMMENTS; Start 10/04/16 at 08:45 Furosemide (Lasix) 80 mg 1X ONCE IVP Last administered on 10/04/16 10:21; Start 10/04/16 at 10:15; Stop 10/04/16 at 10:16; Status DC Active Scripts Active Levofloxacin 750 Mg Tablet 1 Tab PO DAILY Levemir Flextouch (Insulin Detemir) 100 Unit/1 Ml Insuln.pen 20 Units SQ QHS 30 Days Novolog Flexpen (Insulin Aspart) 100 Unit/1 Ml Insuln.pen 10 Units SQ TIDAC 30 Days Reported Percocet 5-325 Mg Tablet (Oxycodone/Acetaminophen) 1 Each Tablet 1 Tab PO PRN Q6HRS PRN Advair 100-50 Diskus (Fluticasone/Salmeterol) 1 Each Disk.w.dev 1 Puff IH BID Spiriva Respimat (Tiotropium [place]) 4 Gm Mist.inhal 2.5 Gm IH DAILY Symbicort 160-4.5 Mcg Inhaler (Budesonide/Formoterol Fumarate) 10.2 Gm Hfa.aer.ad 2 Puff IH BID Atorvastatin Calcium 20 Mg Tablet 20 Mg PO HS Lisinopril-Hctz 10-12.5 Mg Tab (Lisinopril/Hydrochlorothiazide) 1 Each Tablet 1 Tab PO DAILY Isosorbide Mononitrate Er (Isosorbide Mononitrate) 120 Mg Tab.er.24h 120 Mg PO DAILY Novolin N (Nph, Human Insulin Isophane) 100 Unit/1 Ml Vial 0 SQ Promethazine-Codeine Syrup (Promethazine Hcl/Codeine) 118 Ml Syrup 5 Ml PO Q4- 6HRS Diltiazem 24HR Cd (Diltiazem Hcl) 240 Mg Cap.er.24h 240 Mg PO DAILY NITROGLYCERIN SubLingual (Nitroglycerin) 0.4 Mg Tab.subl 0.4 Mg SL PRN Q5MIN PRN Atorvastatin Calcium 40 Mg Tablet 40 Mg PO HS Vitals/I & O Vital Sign - Last 24 Hours 10/03/16 10/03/16 10/03/16 10/03/16 13:00 15:00 15:19 19:30 Temp 98.2 98.2 Pulse 86 86 Resp 20 B/P (MAP) 150/76 150/76 (100) Pulse Ox 98 95 O2 Delivery Nasal Cannula Nasal Cannula Nasal Cannula O2 Flow Rate 2.0 2.0 2.0 10/03/16 10/03/16 10/03/16 10/03/16 19:30 20:06 21:19 22:19 Temp 98.8 98.8 Pulse 90 Resp 22 22 20 B/P (MAP) 138/59 (85) Pulse Ox 93 98 O2 Delivery Nasal Cannula Nasal Cannula Nasal Cannula Nasal Cannula O2 Flow Rate 2.0 2.0 2.0 2.0 10/03/16 10/03/16 10/04/16 10/04/16 23:05 23:53 00:23 02:59 Temp 97.8 97.8 Pulse 85 Resp 22 24 20 B/P (MAP) 168/93 (118) Pulse Ox 94 98 O2 Delivery Nasal Cannula Nasal Cannula Nasal Cannula Nasal Cannula O2 Flow Rate 2.0 2.0 2.0 2.0 10/04/16 10/04/16 10/04/16 10/04/16 03:30 06:16 07:00 07:16 Temp 97.8 98.1 97.8 98.1 Pulse 77 78 Resp 22 20 20 B/P (MAP) 153/78 (103) 187/90 (122) Pulse Ox 97 93 96 93 O2 Delivery Nasal Cannula Nasal Cannula Nasal Cannula Nasal Cannula O2 Flow Rate 2.0 2.0 2.0 2.0 10/04/16 10/04/16 10/04/16 10/04/16 08:00 08:00 08:20 08:43 Pulse 76 88 B/P (MAP) 187/90 187/90 Pulse Ox 97 O2 Delivery Nasal Cannula Nasal Cannula O2 Flow Rate 2.0 2.0 10/04/16 10/04/16 10/04/16 10/04/16 08:44 08:44 10:48 11:00 Temp 97.9 97.9 Pulse 90 88 97 Resp 26 B/P (MAP) 187/90 187/90 158/76 (103) Pulse Ox 90 O2 Delivery Nasal Cannula Nasal Cannula O2 Flow Rate 2.0 2.0 Intake and Output 10/03/16 10/03/16 10/04/16 15:00 23:00 07:00 Intake Total 240 ml 60 ml Output Total 350 ml 600 ml Balance 240 ml -350 ml -540 ml VIKASH UMANZOR MD Oct 04, 2016 11:27
--- NOTE | 2016-10-04 13:49 | PDOC ---
PULMONARY PROGRESS NOTES Subjective PAT MORE SOA THIS AM Vitals Vital Signs Date Time Temp Pulse Resp B/P (MAP) Pulse Ox O2 Delivery O2 Flow Rate FiO2 10/04/16 11:00 97.9 97 26 158/76 (103) 90 Nasal Cannula 2.0 97.9 ROS: No Nausea, No Chest Pain, No Abdominal Pain, No Increase Cough General: Alert, No acute distress HEENT: Other Lungs: Crackles, Other (bl decreased bs) Cardiovascular: S1, S2 Abdomen: Soft, Non-tender, Other Neuro Exam: Alert Extremities: Other (edema) Skin: Warm Labs Laboratory Tests Test 10/02/16 16:26 10/02/16 20:50 10/03/16 07:45 10/03/16 11:31 Glucose (Fingerstick) 240 mg/dL (70-99) 193 mg/dL (70-99) 96 mg/dL (70-99) 217 mg/dL (70-99) Test 10/03/16 16:29 10/03/16 20:53 10/04/16 04:45 10/04/16 08:10 Glucose (Fingerstick) 150 mg/dL (70-99) 232 mg/dL (70-99) Sodium Level 139 mmol/L (136-145) Potassium Level 4.4 mmol/L (3.5-5.1) Chloride Level 103 mmol/L (98-107) Carbon Dioxide Level 31 mmol/L (21-32) Anion Gap 5 (6-14) Blood Urea Nitrogen 39 mg/dL (8-26) Creatinine 1.7 mg/dL (0.7-1.3) Estimated GFR (Cockcroft-Gault) 47.9 BUN/Creatinine Ratio 23 (6-20) Glucose Level 118 mg/dL (70-99) Calcium Level 8.6 mg/dL (8.5-10.1) Total Bilirubin 0.4 mg/dL (0.2-1.0) Aspartate Amino Transf (AST/SGOT) 18 U/L (15-37) Alanine Aminotransferase (ALT/SGPT) 18 U/L (16-63) Alkaline Phosphatase 88 U/L (46-116) Total Protein 6.4 g/dL (6.4-8.2) Albumin 2.3 g/dL (3.4-5.0) Albumin/Globulin Ratio 0.6 (1.0-1.7) O2 Saturation 95 % (92-99) Arterial Blood pH 7.35 (7.35-7.45) Arterial Blood pCO2 at Patient Temp 46 mmHg (35-46) Arterial Blood pO2 at Patient Temp 89 mmHg (65-108) Arterial Blood HCO3 25 mmol/L (21-28) Arterial Blood Base Excess -1 mmol/L (-3-3) FiO2 28 Laboratory Tests Test 10/03/16 16:29 10/03/16 20:53 10/04/16 04:45 10/04/16 08:10 Glucose (Fingerstick) 150 mg/dL (70-99) 232 mg/dL (70-99) Sodium Level 139 mmol/L (136-145) Potassium Level 4.4 mmol/L (3.5-5.1) Chloride Level 103 mmol/L (98-107) Carbon Dioxide Level 31 mmol/L (21-32) Anion Gap 5 (6-14) Blood Urea Nitrogen 39 mg/dL (8-26) Creatinine 1.7 mg/dL (0.7-1.3) Estimated GFR (Cockcroft-Gault) 47.9 BUN/Creatinine Ratio 23 (6-20) Glucose Level 118 mg/dL (70-99) Calcium Level 8.6 mg/dL (8.5-10.1) Total Bilirubin 0.4 mg/dL (0.2-1.0) Aspartate Amino Transf (AST/SGOT) 18 U/L (15-37) Alanine Aminotransferase (ALT/SGPT) 18 U/L (16-63) Alkaline Phosphatase 88 U/L (46-116) Total Protein 6.4 g/dL (6.4-8.2) Albumin 2.3 g/dL (3.4-5.0) Albumin/Globulin Ratio 0.6 (1.0-1.7) O2 Saturation 95 % (92-99) Arterial Blood pH 7.35 (7.35-7.45) Arterial Blood pCO2 at Patient Temp 46 mmHg (35-46) Arterial Blood pO2 at Patient Temp 89 mmHg (65-108) Arterial Blood HCO3 25 mmol/L (21-28) Arterial Blood Base Excess -1 mmol/L (-3-3) FiO2 28 Medications Active Scripts Medications Dose Route/Sig Max Daily Dose Days Date Category Levofloxacin 750 Mg Tablet 1 Tab PO DAILY 09/21/16 Rx Percocet 5-325 Mg Tablet (Oxycodone/Acetaminophen) 1 Each Tablet 1 Tab PO PRN Q6HRS PRN 07/30/16 Reported Advair 100-50 Diskus (Fluticasone/Salmeterol) 1 Each Disk.w.dev 1 Puff IH BID 06/21/16 Reported Spiriva Respimat (Tiotropium [place]) 4 Gm Mist.inhal 2.5 Gm IH DAILY 06/21/16 Reported Symbicort 160-4.5 Mcg Inhaler (Budesonide/Formoterol Fumarate) 10.2 Gm Hfa.aer.ad 2 Puff IH BID 06/21/16 Reported Atorvastatin Calcium 20 Mg Tablet 20 Mg PO HS 06/21/16 Reported Lisinopril-Hctz 10-12.5 Mg Tab (Lisinopril/Hydrochlorothiazide) 1 Each Tablet 1 Tab PO DAILY 06/21/16 Reported Isosorbide Mononitrate Er (Isosorbide Mononitrate) 120 Mg Tab.er.24h 120 Mg PO DAILY 06/21/16 Reported Levemir Flextouch (Insulin Detemir) 100 Unit/1 Ml Insuln.pen 20 Units SQ QHS 30 11/24/15 Rx Novolog Flexpen (Insulin Aspart) 100 Unit/1 Ml Insuln.pen 10 Units SQ TIDAC 30 11/24/15 Rx Novolin N (Nph, Human Insulin Isophane) 100 Unit/1 Ml Vial 0 SQ 11/18/15 Reported Promethazine-Codeine Syrup (Promethazine Hcl/Codeine) 118 Ml Syrup 5 Ml PO Q4-6HRS 11/18/15 Reported Diltiazem 24HR Cd (Diltiazem Hcl) 240 Mg Cap.er.24h 240 Mg PO DAILY 11/18/15 Reported NITROGLYCERIN SubLingual (Nitroglycerin) 0.4 Mg Tab.subl 0.4 Mg SL PRN Q5MIN PRN 11/18/15 Reported Atorvastatin Calcium 40 Mg Tablet 40 Mg PO HS 11/18/15 Reported Comments cxr reviewed. Impression . 1. Acute/Chronic resp failure multifactorial/COPD 2. Acute encephalopathy improved 3. History of extensive pulmonary embolism, resulting in shock in June. Status post treatment with anticoagulation Xarelto with last CT angiogram done on 2016 has shown resolution of pulmonary embolism.He is s/p IVC filter. 4. History of IVC filter placement in June. 5. 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 6. Abnormal CXR with mild CHF 7. renal failure, 8. Anemia 9. PVD Plan . RESTART ANTICOAGULATION WHEEZING ON EXAM WILL CONTINUE BD LASIX PER DOUGIE HENSON MD Oct 04, 2016 13:49
--- NOTE | 2016-10-04 14:44 | CARD ---
APPROVED REPORT EXAM: Two-dimensional and M-mode echocardiogram with Doppler and color Doppler. Other Information Quality : GoodHR: 86bpm Rhythm : NSR INDICATION Shortness of breath 2D DIMENSIONS RVDd3.8 (2.9-3.5cm)Left Atrium(2D)3.7 (1.6-4.0cm) IVSd1.1 (0.7-1.1cm)Aortic Root(2D)3.1 (2.0-3.7cm) LVDd5.4 (3.9-5.9cm)LVOT Diameter2.3 (1.8-2.4cm) PWd1.2 (0.7-1.1cm)LVDs3.9 (2.5-4.0cm) FS (%) 28.7 %SV78.0 ml LVEF(%)54.8 (>50%) LEFT VENTRICLE The left ventricle is normal size. There is borderline concentric left ventricular hypertrophy. The l eft ventricular systolic function is normal. The Ejection Fraction is 55%. There is normal LV segment al wall motion. Limited echo, the cardiac valves were not assessed. RIGHT VENTRICLE The right ventricle is mildly dilated. There is normal right ventricular wall thickness. The right ve ntricular systolic function is normal. ATRIA The left atrium is mildly dilated. The right atrium size is normal. The interatrial septum is intact with no evidence for an atrial septal defect or patent foramen ovale as noted on 2-D or Doppler imagi ng. AORTIC VALVE The aortic valve is mildly sclerotic. The aortic valve is trileaflet. There is no significant aortic valvular stenosis. MITRAL VALVE Mitral annular calcification is mild. The mitral valve leaflets are thickened. There is no evidence o f mitral valve prolapse. There is no mitral valve stenosis. TRICUSPID VALVE There is no tricuspid valve stenosis. PULMONIC VALVE There is no pulmonic valvular stenosis. GREAT VESSELS The aortic root is normal in size. The ascending aorta is normal in size. The pulmonary artery is nor mal. The IVC is normal in size and collapses <50% with inspiration. PERICARDIAL EFFUSION There is large left pleural effusion. There is no evidence of significant pericardial effusion. Critical Notification Critical Value: No <Conclusion> Limited echo to assess LV function. The left ventricular systolic function is normal. The Ejection Fraction is 55%. There is normal LV segmental wall motion. The left atrium is mildly dilated. Pacer wire noted in right atrium and right ventricle. There is no evidence of significant pericardial effusion.
[2016-10-04 15:00] VITALS: BP 151/79
--- NOTE | 2016-10-04 15:11 | PDOC ---
CARDIOLOGY PROGRESS NOTE SUBJECTIVE: Shortness of breath is persistent today. He was somnolent this a.m. More alert now. OBJECTIVE: Vital SIgns: Vital Signs Date Time Temp Pulse Resp B/P (MAP) Pulse Ox O2 Delivery O2 Flow Rate FiO2 10/04/16 15:00 98.7 83 24 151/79 (103) 96 Nasal Cannula 2.0 98.7 I & O Intake and Output 10/04/16 07:00 Intake Total 300 ml Output Total 950 ml Balance -650 ml Intake Oral 300 ml Output Urine Total 950 ml # Bowel Movements 1 Objective: Gen: A/O to self only CVS: RRR PULM: Decreased breath sounds, r > l ABd: Soft, NT/ND +BS EXT: Trace edema. CURRENT MEDICATIONS: Plavix 75mg daily Amlodipine 10mg daily Imdur 120mg daily DIAGNOSTIC TESTING: CXR: Severe bilateral pulmonary congestion Cr 1.7 (improved) ASSESSMENT: 1. Acute on chronic diastolic HF 2. PAD s/p RLE bypass 3. Acute on chronic resp failure 4. Anemia 5. BASIM on CKD Problems: PLAN: -Agree with 80mg IV lasix. Continue diuresis as tolerated. Added Hydralazine 50mg bid for better BP control. Will follow along. CLEO JUAREZ MD Oct 04, 2016 15:11
--- NOTE | 2016-10-04 16:43 | PATHOLOGY ---
PATHOLOGY REPORT * * * * * * * * FINAL DIAGNOSIS: First, second and fifth toes right foot, amputation: - Gangrenous necrosis and ulceration of distal first toe with focal acute cellulitis and acute osteomyelitis. - Focal ulceration and acute cellulitis of distal second and fifth toes. REPORT ELECTRONICALLY SIGNED BY: Trung Pena M.D. DATE/TIME: 10/04/2016 16:42 * * * * * * * * GROSS PATHOLOGY: The specimen is received in formalin, designated, "Bronson Lloyd, first, second and 5th toes" and consists of the distal segment of three toes. The skin covering each toe is longoria brown, flaky and wrinkled. The largest toe measures 3.2 x 2.8 x 2.5 cm in maximum dimensions. The distal tip and nail bed surface are extensively ulcerated showing focal areas of firm, dark longoria brown necrosis. There is no toenail readily identified grossly. The second toe measures 3.5 x 2.2 x 2.2 cm and shows a large area of ulceration involving the nail bed surface and extends towards the proximal margin of resection. The area of ulceration ends approximately 0.6 cm from the proximal line of resection. The 5th toe measures 2.5 x 1.8 x 1.5 cm and also shows an area of ulceration involving the nail bed surface. This extends to within 0.4 cm of the proximal line of resection. The larger toe is sectioned from proximal to distal and a sales solutions representative section is submitted in cassette A1, following decalcification. The smaller two toes are sectioned through the area of ulceration to include the ulcer, soft tissue and underlying bone and submitted in cassette A2 following decalcification. (JPM; 10/01/16) INITIAL CPT CODE(S): A; 15692, 81748 Professional services performed by [facility] at [facility] [address] [place] [address] Technical services performed by [facility] at [address] [place] [address], [address], [place] [address]. SPECIMEN(S) RECEIVED: A.First, second, fifth toe amputation CLINICAL HISTORY: Right heel ulcer with necrotic tissue, right toe ulcers PATIENT: BRONSON LLOYD /AGE: 5 1940 (Age: 76) PATIENT #: [id number] ALT CASE #: SPECIMEN COLLECTION DATE: 09/30/2016 SPECIMEN RECEIVED DATE: 10/01/2016 [facility] - [address] [place] [address] - PHONE: [phone] * * * END OF REPORT * * *
[2016-10-04 19:50] VITALS: BP 159/80
[2016-10-04] MEDS: ATORVASTATIN CALCIUM 40 MG TABLET. PO SCH (21:29)
[2016-10-04] MEDS: INSULIN DETEMIR 300 UNITS/3 ML INSULN.PEN. SQ SCH (21:33)
[2016-10-04 23:00] VITALS: BP 149/77
[2016-10-05] MEDS ORDERED: IPRATRPIUM/ALBUTEROL 0.5/2.5MG 3 ML NEBU. NEB ONE ×3 (01:00→23:45)
[2016-10-05 03:25] VITALS: BP 146/74
[2016-10-05 06:10] LABS: CALCIUM 8.5 mg/dL (8.5-10.1); CREATININE 1.8 mg/dL (0.7-1.3); GFR 44.9; MAGNESIUM 2.3 mg/dL (1.8-2.4); POTASSIUM 4.3 mmol/L (3.5-5.1)
[2016-10-05] MEDS: IPRATRPIUM/ALBUTEROL 0.5/2.5MG 3 ML NEBU. NEB SCH ×4 (07:01→20:18)
[2016-10-05] MEDS: BUDESONIDE 0.5 MG/2 ML NEBU. NEB SCH ×2 (07:01→20:18)
[2016-10-05 07:25] VITALS: BP 146/76
[2016-10-05] MEDS: INSULIN ASPART 300 UNITS/3 ML INSULN.PEN SQ SCH ×3 (08:00→17:29)
[2016-10-05] MEDS: CLOPIDOGREL BISULFATE 75 MG TABLET PO SCH (08:15)
[2016-10-05] MEDS: ISOSORBIDE MONONITRATE ER 30 MG TAB.ER.24H PO SCH (08:16)
[2016-10-05] MEDS: amLODIPine BESYLATE 10 MG TABLET PO SCH (08:16)
[2016-10-05] MEDS: HYDROcodone/APAP 5/325MG 1 TAB TABLET PO PRN ×2 (08:17→21:10)
[2016-10-05] MEDS: BENZONATATE 100 MG CAPSULE. PO SCH ×3 (09:00→21:10)
--- NOTE | 2016-10-05 10:22 | PDOC ---
PULMONARY PROGRESS NOTES Subjective SOA on/off Vitals Vital Signs Date Time Temp Pulse Resp B/P (MAP) Pulse Ox O2 Delivery O2 Flow Rate FiO2 10/05/16 09:17 97 Nasal Cannula 2.0 10/05/16 08:17 87 160/85 10/05/16 07:25 98.3 24 98.3 ROS: No Nausea, No Chest Pain, No Abdominal Pain, No Increase Cough General: Alert, No acute distress HEENT: Other Lungs: Other (bl decreased bs) Cardiovascular: S1, S2 Abdomen: Soft, Non-tender, Other Neuro Exam: Alert Extremities: Other (edema) Skin: Warm Labs Laboratory Tests Test 10/03/16 11:31 10/03/16 16:29 10/03/16 20:53 10/04/16 04:45 Glucose (Fingerstick) 217 mg/dL (70-99) 150 mg/dL (70-99) 232 mg/dL (70-99) Sodium Level 139 mmol/L (136-145) Potassium Level 4.4 mmol/L (3.5-5.1) Chloride Level 103 mmol/L (98-107) Carbon Dioxide Level 31 mmol/L (21-32) Anion Gap 5 (6-14) Blood Urea Nitrogen 39 mg/dL (8-26) Creatinine 1.7 mg/dL (0.7-1.3) Estimated GFR (Cockcroft-Gault) 47.9 BUN/Creatinine Ratio 23 (6-20) Glucose Level 118 mg/dL (70-99) Calcium Level 8.6 mg/dL (8.5-10.1) Total Bilirubin 0.4 mg/dL (0.2-1.0) Aspartate Amino Transf (AST/SGOT) 18 U/L (15-37) Alanine Aminotransferase (ALT/SGPT) 18 U/L (16-63) Alkaline Phosphatase 88 U/L (46-116) Total Protein 6.4 g/dL (6.4-8.2) Albumin 2.3 g/dL (3.4-5.0) Albumin/Globulin Ratio 0.6 (1.0-1.7) Test 10/04/16 07:45 10/04/16 08:10 10/04/16 12:12 10/04/16 16:59 Glucose (Fingerstick) 95 mg/dL (70-99) 235 mg/dL (70-99) 146 mg/dL (70-99) O2 Saturation 95 % (92-99) Arterial Blood pH 7.35 (7.35-7.45) Arterial Blood pCO2 at Patient Temp 46 mmHg (35-46) Arterial Blood pO2 at Patient Temp 89 mmHg (65-108) Arterial Blood HCO3 25 mmol/L (21-28) Arterial Blood Base Excess -1 mmol/L (-3-3) FiO2 28 Test 10/04/16 20:48 10/05/16 05:44 10/05/16 07:34 Glucose (Fingerstick) 138 mg/dL (70-99) 80 mg/dL (70-99) Sodium Level 139 mmol/L (136-145) Potassium Level 4.3 mmol/L (3.5-5.1) Chloride Level 102 mmol/L (98-107) Carbon Dioxide Level 31 mmol/L (21-32) Anion Gap 6 (6-14) Blood Urea Nitrogen 44 mg/dL (8-26) Creatinine 1.8 mg/dL (0.7-1.3) Estimated GFR (Cockcroft-Gault) 44.9 Glucose Level 108 mg/dL (70-99) Calcium Level 8.5 mg/dL (8.5-10.1) Magnesium Level 2.3 mg/dL (1.8-2.4) Laboratory Tests Test 10/04/16 12:12 10/04/16 16:59 10/04/16 20:48 10/05/16 05:44 Glucose (Fingerstick) 235 mg/dL (70-99) 146 mg/dL (70-99) 138 mg/dL (70-99) Sodium Level 139 mmol/L (136-145) Potassium Level 4.3 mmol/L (3.5-5.1) Chloride Level 102 mmol/L (98-107) Carbon Dioxide Level 31 mmol/L (21-32) Anion Gap 6 (6-14) Blood Urea Nitrogen 44 mg/dL (8-26) Creatinine 1.8 mg/dL (0.7-1.3) Estimated GFR (Cockcroft-Gault) 44.9 Glucose Level 108 mg/dL (70-99) Calcium Level 8.5 mg/dL (8.5-10.1) Magnesium Level 2.3 mg/dL (1.8-2.4) Test 10/05/16 07:34 Glucose (Fingerstick) 80 mg/dL (70-99) Medications Active Scripts Medications Dose Route/Sig Max Daily Dose Days Date Category Levofloxacin 750 Mg Tablet 1 Tab PO DAILY 09/21/16 Rx Percocet 5-325 Mg Tablet (Oxycodone/Acetaminophen) 1 Each Tablet 1 Tab PO PRN Q6HRS PRN 07/30/16 Reported Advair 100-50 Diskus (Fluticasone/Salmeterol) 1 Each Disk.w.dev 1 Puff IH BID 06/21/16 Reported Spiriva Respimat (Tiotropium [place]) 4 Gm Mist.inhal 2.5 Gm IH DAILY 06/21/16 Reported Symbicort 160-4.5 Mcg Inhaler (Budesonide/Formoterol Fumarate) 10.2 Gm Hfa.aer.ad 2 Puff IH BID 06/21/16 Reported Atorvastatin Calcium 20 Mg Tablet 20 Mg PO HS 06/21/16 Reported Lisinopril-Hctz 10-12.5 Mg Tab (Lisinopril/Hydrochlorothiazide) 1 Each Tablet 1 Tab PO DAILY 06/21/16 Reported Isosorbide Mononitrate Er (Isosorbide Mononitrate) 120 Mg Tab.er.24h 120 Mg PO DAILY 06/21/16 Reported Levemir Flextouch (Insulin Detemir) 100 Unit/1 Ml Insuln.pen 20 Units SQ QHS 30 11/24/15 Rx Novolog Flexpen (Insulin Aspart) 100 Unit/1 Ml Insuln.pen 10 Units SQ TIDAC 30 11/24/15 Rx Novolin N (Nph, Human Insulin Isophane) 100 Unit/1 Ml Vial 0 SQ 11/18/15 Reported Promethazine-Codeine Syrup (Promethazine Hcl/Codeine) 118 Ml Syrup 5 Ml PO Q4-6HRS 11/18/15 Reported Diltiazem 24HR Cd (Diltiazem Hcl) 240 Mg Cap.er.24h 240 Mg PO DAILY 11/18/15 Reported NITROGLYCERIN SubLingual (Nitroglycerin) 0.4 Mg Tab.subl 0.4 Mg SL PRN Q5MIN PRN 11/18/15 Reported Atorvastatin Calcium 40 Mg Tablet 40 Mg PO HS 11/18/15 Reported Comments cxr reviewed. Impression . 1. Acute/Chronic resp failure multifactorial/COPD 2. Acute encephalopathy improved 3. History of extensive pulmonary embolism, resulting in shock in June. Status post treatment with anticoagulation Xarelto with last CT angiogram done on 2016 has shown resolution of pulmonary embolism.He is s/p IVC filter. 4. History of IVC filter placement in June. 5. 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 6. Abnormal CXR with mild CHF 7. renal failure, 8. Anemia 9. PVD Plan . WILL DO V/Q SCAN TODAY IF NO RECURRENT PE, THEN DC FULL DOSE ANTICOAGULATION NOT THE BEST CANDIDATE FOR STOCK CHASER AC WILL CONTINUE BD DIURESIS LASIX PER IVANA JAY MD Oct 05, 2016 10:22
--- NOTE | 2016-10-05 10:25 | PDOC ---
PROGRESS NOTES Chief Complaint Chief Complaint cc: AMS Hypoglycemia with acute encephalopathy POA, resolved: SSI, Respiratory failure: Acute on Chronic, CXR showed pleural effusion, On IV Lasix , VQ and LE Doppler pending. Severe pulmonary artery systolic pressure 70 mmHg. 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 wound care. HX bilateral PE with cardiac arrest ([facility] 2017) sec to PE COPD on home Oxygen DM2; insulin with HYPOGLYCEMIA: SSI with Levemir Renal failure: nephrology following. appreciate their recommendatons. HTN controlled : prn hydralazine, continue current medications. see medications. Diastolic heart failure: stable. Intractable pain : PRN iv morphine with Harper Prognosis guarded Disposition: home with home health, no SNU days with out slef pay labs reviewed. History of Present Illness History of Present Illness pain Controlled HTN not controlled. sitting in chair watching TV. Vitals Vitals Vital Signs Date Time Temp Pulse Resp B/P (MAP) Pulse Ox O2 Delivery O2 Flow Rate FiO2 10/05/16 09:17 97 Nasal Cannula 2.0 10/05/16 08:17 87 160/85 10/05/16 07:25 98.3 24 98.3 Physical Exam General: Alert, Oriented X3, Cooperative, No acute distress Heart: Regular rate, Normal S1, Normal S2, No murmurs, Gallops, Rubs Lungs: Other (bl decreased bs) Abdomen: Normal bowel sounds, Soft, No tenderness Extremities: Other (incisions in the right lower sternum are clean dry and intact, the patient has a palpable graft pulse in the right lower extremity, the toe AP sedation sites are clean and dry, the heel debridement site is stable with early granulation tissue) Skin: No breakdown Labs LABS Laboratory Tests Test 10/04/16 12:12 10/04/16 16:59 10/04/16 20:48 10/05/16 05:44 Glucose (Fingerstick) 235 mg/dL (70-99) 146 mg/dL (70-99) 138 mg/dL (70-99) Sodium Level 139 mmol/L (136-145) Potassium Level 4.3 mmol/L (3.5-5.1) Chloride Level 102 mmol/L (98-107) Carbon Dioxide Level 31 mmol/L (21-32) Anion Gap 6 (6-14) Blood Urea Nitrogen 44 mg/dL (8-26) Creatinine 1.8 mg/dL (0.7-1.3) Estimated GFR (Cockcroft-Gault) 44.9 Glucose Level 108 mg/dL (70-99) Calcium Level 8.5 mg/dL (8.5-10.1) Magnesium Level 2.3 mg/dL (1.8-2.4) Test 10/05/16 07:34 Glucose (Fingerstick) 80 mg/dL (70-99) Assessment and Plan Assessmemt and Plan Problems Medical Problems: (1) Hypoglycemia Status: Acute Problems: Comment Review of Relevant I have reviewed the following items valerie (where applicable) has been applied. Labs Laboratory Tests Test 10/03/16 11:31 10/03/16 16:29 10/03/16 20:53 10/04/16 04:45 Glucose (Fingerstick) 217 mg/dL (70-99) 150 mg/dL (70-99) 232 mg/dL (70-99) Sodium Level 139 mmol/L (136-145) Potassium Level 4.4 mmol/L (3.5-5.1) Chloride Level 103 mmol/L (98-107) Carbon Dioxide Level 31 mmol/L (21-32) Anion Gap 5 (6-14) Blood Urea Nitrogen 39 mg/dL (8-26) Creatinine 1.7 mg/dL (0.7-1.3) Estimated GFR (Cockcroft-Gault) 47.9 BUN/Creatinine Ratio 23 (6-20) Glucose Level 118 mg/dL (70-99) Calcium Level 8.6 mg/dL (8.5-10.1) Total Bilirubin 0.4 mg/dL (0.2-1.0) Aspartate Amino Transf (AST/SGOT) 18 U/L (15-37) Alanine Aminotransferase (ALT/SGPT) 18 U/L (16-63) Alkaline Phosphatase 88 U/L (46-116) Total Protein 6.4 g/dL (6.4-8.2) Albumin 2.3 g/dL (3.4-5.0) Albumin/Globulin Ratio 0.6 (1.0-1.7) Test 10/04/16 07:45 10/04/16 08:10 10/04/16 12:12 10/04/16 16:59 Glucose (Fingerstick) 95 mg/dL (70-99) 235 mg/dL (70-99) 146 mg/dL (70-99) O2 Saturation 95 % (92-99) Arterial Blood pH 7.35 (7.35-7.45) Arterial Blood pCO2 at Patient Temp 46 mmHg (35-46) Arterial Blood pO2 at Patient Temp 89 mmHg (65-108) Arterial Blood HCO3 25 mmol/L (21-28) Arterial Blood Base Excess -1 mmol/L (-3-3) FiO2 28 Test 10/04/16 20:48 10/05/16 05:44 10/05/16 07:34 Glucose (Fingerstick) 138 mg/dL (70-99) 80 mg/dL (70-99) Sodium Level 139 mmol/L (136-145) Potassium Level 4.3 mmol/L (3.5-5.1) Chloride Level 102 mmol/L (98-107) Carbon Dioxide Level 31 mmol/L (21-32) Anion Gap 6 (6-14) Blood Urea Nitrogen 44 mg/dL (8-26) Creatinine 1.8 mg/dL (0.7-1.3) Estimated GFR (Cockcroft-Gault) 44.9 Glucose Level 108 mg/dL (70-99) Calcium Level 8.5 mg/dL (8.5-10.1) Magnesium Level 2.3 mg/dL (1.8-2.4) Laboratory Tests Test 10/04/16 12:12 10/04/16 16:59 10/04/16 20:48 10/05/16 05:44 Glucose (Fingerstick) 235 mg/dL (70-99) 146 mg/dL (70-99) 138 mg/dL (70-99) Sodium Level 139 mmol/L (136-145) Potassium Level 4.3 mmol/L (3.5-5.1) Chloride Level 102 mmol/L (98-107) Carbon Dioxide Level 31 mmol/L (21-32) Anion Gap 6 (6-14) Blood Urea Nitrogen 44 mg/dL (8-26) Creatinine 1.8 mg/dL (0.7-1.3) Estimated GFR (Cockcroft-Gault) 44.9 Glucose Level 108 mg/dL (70-99) Calcium Level 8.5 mg/dL (8.5-10.1) Magnesium Level 2.3 mg/dL (1.8-2.4) Test 10/05/16 07:34 Glucose (Fingerstick) 80 mg/dL (70-99) Microbiology 09/22/16 Blood Culture - Final, Complete NO GROWTH AFTER 5 DAYS 09/30/16 Anaerobic/Aerobic Culture - Final, Complete 09/30/16 Anaerobic Culture Result 1 (MARÍA) - Final, Complete 09/30/16 Aerobic Culture - Final, Complete 09/30/16 Aerobic Culture Result 1 (MARÍA) - Final, Complete Medications Current Medications Dextrose (Dextrose 50%-Water Syringe) 25 gm STK-MED ONCE IV ; Start 09/22/16 at 10:39; Stop 09/22/16 at 10:40; Status DC Dextrose 500 ml @ 30 mls/hr 1X ONCE IV Last administered on 09/22/16 11:52; Start 09/22/16 at 11:45; Stop 09/22/16 at 17:38; Status DC Dextrose (Dextrose 50%-Water Syringe) 25 gm STK-MED ONCE IV ; Start 09/22/16 at 11:45; Stop 09/22/16 at 11:46; Status DC Dextrose (Dextrose 50%-Water Syringe) 25 gm 1X ONCE IV Last administered on 10:45; Start 09/22/16 at 12:00; Stop 09/22/16 at 12:01; Status DC Dextrose (Dextrose 50%-Water Syringe) 25 gm 1X ONCE IV Last administered on 11:40; Start 09/22/16 at 12:00; Stop 09/22/16 at 12:01; Status DC Nitroglycerin (Nitrostat) 0.4 mg PRN Q5MIN PRN SL CHEST PAIN Last administered on 09/24/16 03:18; Start 09/22/16 at 12:00 Ondansetron HCl (Zofran) 4 mg PRN Q8HRS PRN IV NAUSEA/VOMITING; Start 09/22/16 at 12:30; Stop 09/23/16 at 12:29; Status DC Levofloxacin/ Dextrose (Levaquin Per Pharmacy) 1 each PRN DAILY PRN MC SEE COMMENTS; Start 09/22/16 at 12:45; Stop 09/25/16 at 15:18; Status DC Levofloxacin/ Dextrose 150 ml @ 100 mls/hr Q48H IV Last administered on 14:46; Start 09/22/16 at 13:00; Stop 10/01/16 at 14:42; Status DC Sodium Chloride 500 ml @ 1,000 mls/hr 1X ONCE IV Last administered on 13:10; Start 09/22/16 at 13:15; Stop 09/22/16 at 13:44; Status DC Dextrose (Dextrose 50%-Water Syringe) 25 gm 1X ONCE IV Last administered on 13:11; Start 09/22/16 at 13:15; Stop 09/22/16 at 13:16; Status DC Insulin Aspart (NovoLOG) 0-5 UNITS TIDWMEALS SQ Last administered on 09/22/16 18:17; Start 09/22/16 at 17:00; Stop 09/23/16 at 09:23; Status DC Dextrose (Dextrose 50%-Water Syringe) 12.5 gm PRN Q15MIN PRN IV SEE COMMENTS Last administered on 09/22/16 13:58; Start 09/22/16 at 14:00 Labetalol HCl (Normodyne) 20 mg PRN Q2HR PRN IVP HYPERTENSION, SEE COMMENTS Last administered on 09/30/16 16:25; Start 09/22/16 at 14:15; Stop 09/30/16 at 17 :24; Status DC Amlodipine Besylate (Norvasc) 10 mg DAILY PO ; Start 09/23/16 at 09:00; Status UNV Atorvastatin Calcium (Lipitor) 40 mg HS PO Last administered on 10/04/16 21:29 ; Start 09/22/16 at 21:00 Diltiazem HCl (Cardizem 24hr Cd) 240 mg DAILY PO Last administered on 08:17; Start 09/22/16 at 15:00 Isosorbide Mononitrate (Imdur) 120 mg DAILY PO Last administered on 10/05/16 08:16; Start 09/22/16 at 15:00 Albuterol/ Ipratropium (Duoneb) 3 ml STK-MED ONCE .ROUTE ; Start 09/22/16 at 15: 06; Stop 09/22/16 at 15:07; Status DC Albuterol/ Ipratropium (Duoneb) 3 ml RTQID NEB Last administered on 09/30/16 16 :29; Start 09/22/16 at 16:00; Stop 09/30/16 at 16:50; Status DC Budesonide (Pulmicort) 0.5 mg RTBID NEB Last administered on 10/05/16 07:01; Start 09/22/16 at 20:00 Magnesium Sulfate/ Dextrose 50 ml @ 25 mls/hr PRN DAILY PRN IV for Mag < 1.7 on am labs; Start 09/22/16 at 15:45 Sodium Chloride 1,000 ml @ 100 mls/hr Q10H IV Last administered on 09/23/16 01 :35; Start 09/22/16 at 15:45; Stop 09/23/16 at 07:45; Status DC Dextrose 1,000 ml @ 50 mls/hr Q20H IV Last administered on 09/22/16 17:39; Start 09/22/16 at 17:45; Stop 09/23/16 at 07:45; Status DC Insulin Aspart (NovoLOG) 0-9 UNITS TIDWMEALS SQ Last administered on 10/04/16 12:25; Start 09/23/16 at 12:00 Dextrose (Dextrose 50%-Water Syringe) 12.5 gm PRN Q15MIN PRN IV SEE COMMENTS; Start 09/23/16 at 09:30; Stop 09/23/16 at 12:56; Status DC Albuterol/ Ipratropium (Duoneb) 3 ml RTQID NEB ; Start 09/23/16 at 12:00; Stop at 12:56; Status DC Prednisone (Prednisone) 60 mg 1X ONCE PO Last administered on 09/23/16 10:00; Start 09/23/16 at 09:30; Stop 09/23/16 at 09:31; Status DC Benzonatate (Tessalon Perle) 100 mg [id number] PO Last administered on 10/04/16 21 :29; Start 09/23/16 at 09:30 Furosemide (Lasix) 20 mg 1X ONCE IVP Last administered on 09/23/16 17:30; Start 09/23/16 at 17:30; Stop 09/23/16 at 17:31; Status DC Furosemide (Lasix) 80 mg 1X ONCE IVP Last administered on 09/24/16 15:56; Start 09/24/16 at 11:00; Stop 09/24/16 at 11:03; Status DC Acetylcysteine (Mucomyst 20% Oral Solution) 1,200 mg BID PO Last administered on 09/26/16 08:51; Start 09/24/16 at 11:30; Stop 09/26/16 at 11:29; Status DC Darbepoetin Arsh (Aranesp) 60 mcg [id number] SQ Last administered on 10/01/16 21: 48; Start 09/24/16 at 21:00 Tramadol HCl (Ultram) 50 mg PRN Q6HRS PRN PO mild pain Last administered on 21:19; Start 09/24/16 at 11:30 Iohexol (Omnipaque 300 Mg/ml) 100 ml STK-MED ONCE .ROUTE ; Start 09/24/16 at 12: 12; Stop 09/24/16 at 12:13; Status DC Lidocaine/Sodium Bicarbonate (Buffered Lidocaine 1%) 20 ml STK-MED ONCE IJ ; Start 09/24/16 at 12:12; Stop 09/24/16 at 12:13; Status DC Midazolam HCl (Versed) 5 mg STK-MED ONCE .ROUTE ; Start 09/24/16 at 12:12; Stop 09/24/16 at 12:13; Status DC Fentanyl Citrate (Fentanyl 5ml Vial) 250 mcg STK-MED ONCE .ROUTE ; Start at 12:12; Stop 09/24/16 at 12:13; Status DC Heparin Sodium/ Sodium Chloride 2,000 ml @ As Directed STK-MED ONCE .ROUTE ; Start 09/24/16 at 12:13; Stop 09/24/16 at 12:14; Status DC Iodixanol (Visipaque 320) 100 ml STK-MED ONCE .ROUTE ; Start 09/24/16 at 12:13; Stop 09/24/16 at 12:14; Status DC Heparin Sodium (Porcine) (Heparin Sodium) 10,000 unit STK-MED ONCE .ROUTE ; Start 09/24/16 at 12:15; Stop 09/24/16 at 12:16; Status DC Insulin Detemir (Levemir) 10 units QHS SQ Last administered on 10/04/16 21:33 ; Start 09/24/16 at 21:00 Heparin Sodium/ Sodium Chloride 1,000 unit 1X ONCE IART Last administered on 14:52; Start 09/24/16 at 14:00; Stop 09/24/16 at 14:01; Status DC Lidocaine/Sodium Bicarbonate (Buffered Lidocaine 1%) 20 ml 1X ONCE IJ Last administered on 09/24/16 14:00; Start 09/24/16 at 14:00; Stop 09/24/16 at 14:01; Status DC Midazolam HCl (Versed) 5 mg 1X ONCE IV ; Start 09/24/16 at 14:00; Stop 09/24/16 at 14:01; Status DC Fentanyl Citrate (Fentanyl 5ml Vial) 250 mcg 1X ONCE IV ; Start 09/24/16 at 14: 00; Stop 09/24/16 at 14:01; Status DC Iohexol (Omnipaque 300 Mg/ml) 100 ml 1X ONCE IART Last administered on 14:51; Start 09/24/16 at 14:00; Stop 09/24/16 at 14:01; Status DC Iodixanol (Visipaque 320) 100 ml 1X ONCE IART Last administered on 09/24/16 14 :00; Start 09/24/16 at 14:00; Stop 09/24/16 at 14:01; Status DC Heparin Sodium (Porcine) (Heparin Sodium) 4,000 unit 1X ONCE IV Last administered on 09/24/16 14:00; Start 09/24/16 at 14:00; Stop 09/24/16 at 14:01; Status DC Info (Do NOT chart on this entry -- for MONITORING) 1 each PRN DAILY PRN MC SEE COMMENTS; Start 09/24/16 at 14:15; Stop 09/26/16 at 14:14; Status DC Clopidogrel Bisulfate (Plavix) 300 mg 1X ONCE PO Last administered on 16:01; Start 09/24/16 at 15:30; Stop 09/24/16 at 15:31; Status DC Clopidogrel Bisulfate (Plavix) 75 mg [id number] PO Last administered on 08:15; Start 09/25/16 at 08:00; Stop 10/25/16 at 08:00 Ringer's Solution 1,000 ml @ 100 mls/hr Q10H IV ; Start 09/27/16 at 00:01; Stop 09/27/16 at 00:01; Status DC Cefazolin Sodium/ Dextrose 50 ml @ 100 mls/hr 1X PREOP PRN IV SEE COMMENTS Last administered on 09/27/16 13:22; Start 09/27/16 at 06:00; Stop 09/27/16 at 18: 00; Status DC Heparin Sodium (Porcine) 5000 unit/Sodium Chloride 505 ml @ 505 mls/hr 1X PERIOP ONCE IRR Last administered on 09/27/16 13:36; Start 09/27/16 at 07:15; Stop 09/27/16 at 08:14; Status DC Cefazolin Sodium 1 gm/Sodium Chloride 500 ml @ 500 mls/hr 1X PERIOP ONCE IRR Last administered on 09/27/16 13:36; Start 09/27/16 at 07:15; Stop 09/27/16 at 08: 14; Status DC Furosemide (Lasix) 40 mg 1X ONCE IVP Last administered on 09/27/16 13:20; Start 09/27/16 at 11:00; Stop 09/27/16 at 11:01; Status DC Lidocaine HCl (Lidocaine Pf 2% Vial) 5 ml STK-MED ONCE .ROUTE ; Start 09/27/16 at 11:42; Stop 09/27/16 at 11:43; Status DC Ondansetron HCl (Zofran) 4 mg STK-MED ONCE .ROUTE ; Start 09/27/16 at 11:42; Stop 09/27/16 at 11:43; Status DC Famotidine (Pepcid) 20 mg STK-MED ONCE .ROUTE ; Start 09/27/16 at 11:42; Stop 09/27/16 at 11:43; Status DC Dexamethasone Sodium Phosphate (Decadron) 20 mg STK-MED ONCE .ROUTE ; Start 09/27 at 11:42; Stop 09/27/16 at 11:43; Status DC Propofol 20 ml @ As Directed STK-MED ONCE IV ; Start 09/27/16 at 11:42; Stop 09/27 at 11:43; Status DC Rocuronium [place] (Zemuron) 50 mg STK-MED ONCE .ROUTE ; Start 09/27/16 at 11:45 ; Stop 09/27/16 at 11:46; Status DC Fentanyl Citrate (Fentanyl 5ml Vial) 250 mcg STK-MED ONCE .ROUTE ; Start at 11:46; Stop 09/27/16 at 11:47; Status DC Cellulose 1 each STK-MED ONCE .ROUTE ; Start 09/27/16 at 12:04; Stop 09/27/16 at 12:05; Status DC Bupivacaine HCl (Marcaine 0.25%) 50 ml STK-MED ONCE .ROUTE ; Start 09/27/16 at 12 :04; Stop 09/27/16 at 12:05; Status DC Iohexol (Omnipaque 300 Mg/ml) 100 ml STK-MED ONCE .ROUTE ; Start 09/27/16 at 12: 05; Stop 09/27/16 at 12:06; Status DC Gelatin (Gelfoam Size 100) 1 each STK-MED ONCE .ROUTE ; Start 09/27/16 at 12:05 ; Stop 09/27/16 at 12:06; Status DC Papaverine HCl 60 mg STK-MED ONCE .ROUTE ; Start 09/27/16 at 12:05; Stop 09/27/16 at 12:06; Status DC Thrombin 20,000 unit STK-MED ONCE TP ; Start 09/27/16 at 12:05; Stop 09/27/16 at 12:06; Status DC Lidocaine HCl 1 ml STK-MED ONCE .ROUTE ; Start 09/27/16 at 12:35; Stop 09/27/16 at 12:36; Status DC Ringer's Solution 1,000 ml @ 75 mls/hr [id number] IV Last administered on t 17:03; Start 09/27/16 at 13:30; Stop 09/28/16 at 12:44; Status DC Furosemide (Lasix) 40 mg STK-MED ONCE .ROUTE ; Start 09/27/16 at 13:34; Stop 09/27 at 13:35; Status DC Heparin Sodium (Porcine) (Heparin Sodium) 10,000 unit STK-MED ONCE .ROUTE ; Start 09/27/16 at 14:29; Stop 09/27/16 at 14:30; Status DC Glycopyrrolate (Robinul) 1 mg STK-MED ONCE .ROUTE ; Start 09/27/16 at 16:00; Stop 09/27/16 at 16:01; Status DC Neostigmine Methylsulfate 5 mg STK-MED ONCE .ROUTE ; Start 09/27/16 at 16:00; Stop 09/27/16 at 16:01; Status DC Desflurane (Suprane) 90 ml STK-MED ONCE IH ; Start 09/27/16 at 16:00; Stop at 16:01; Status DC Bacitracin 14 margie STK-MED ONCE TP Last administered on 09/27/16 16:12; Start at 16:14; Stop 09/27/16 at 16:15; Status DC Propofol 20 ml @ As Directed STK-MED ONCE IV ; Start 09/27/16 at 16:28; Stop 09/27 at 16:29; Status DC Fentanyl Citrate (Fentanyl 2ml Vial) 25 mcg PRN Q5MIN PRN IV Acute Pain; Start 09/27/16 at 16:45; Stop 09/28/16 at 16:44; Status DC Fentanyl Citrate (Fentanyl 2ml Vial) 50 mcg PRN Q5MIN PRN IV Acute Pain Last administered on 09/27/16 17:21; Start 09/27/16 at 16:45; Stop 09/28/16 at 16:44; Status DC Morphine Sulfate 2 mg PRN Q10MIN PRN IV Mild Pain Last administered on 17:00; Start 09/27/16 at 16:45; Stop 09/28/16 at 16:44; Status DC Hydromorphone HCl (Dilaudid) 0.5 mg PRN Q10MIN PRN IV Moderate to severe pain; Start 09/27/16 at 16:45; Stop 09/28/16 at 16:44; Status DC Ondansetron HCl (Zofran) 4 mg PRN Q6HRS PRN IV Nausea, 2nd Choice; Start at 16:45; Stop 09/28/16 at 16:44; Status DC Prochlorperazine Edisylate (Compazine) 5 mg PRN Q6HRS PRN IV Nausea/Vomiting, 2nd Choice; Start 09/27/16 at 16:45; Stop 09/28/16 at 16:44; Status DC Haloperidol Lactate (Haldol) 5 mg STK-MED ONCE .ROUTE ; Start 09/27/16 at 17:28; Stop 09/27/16 at 17:29; Status DC Haloperidol Lactate (Haldol) 2.5 mg 1X PACU PRN IVP AGITATION Last administered on 09/27/16 18:07; Start 09/27/16 at 17:30; Stop 09/28/16 at 15:58; Status DC Furosemide (Lasix) 80 mg 1X ONCE IVP Last administered on 09/28/16 11:19; Start 09/28/16 at 11:00; Stop 09/28/16 at 11:01; Status DC Cefazolin Sodium/ Dextrose 50 ml @ 100 mls/hr 1X PREOP PRN IV MARKETING PR INTERN FOR OR; Start 09/30/16 at 06:00; Stop 09/30/16 at 08:00; Status DC Albuterol/ Ipratropium (Duoneb) 3 ml 1X ONCE NEB Last administered on 00:07; Start 09/29/16 at 00:00; Stop 09/29/16 at 00:12; Status DC Fentanyl Citrate (Fentanyl 2ml Vial) 25 mcg PRN Q5MIN PRN IV MILD PAIN; Start 09/30/16 at 07:00; Stop 10/01/16 at 06:59; Status DC Fentanyl Citrate (Fentanyl 2ml Vial) 50 mcg PRN Q5MIN PRN IV MODERATE PAIN Last administered on 09/30/16 16:19; Start 09/30/16 at 07:00; Stop 10/01/16 at 06: 59; Status DC Morphine Sulfate 1 mg PRN Q10MIN PRN IV SEVERE PAIN; Start 09/30/16 at 07:00; Stop 10/01/16 at 06:59; Status DC Ringer's Solution 1,000 ml @ 0 mls/hr Q0M IV ; Start 09/30/16 at 07:00; Stop 09/30/16 at 18:59; Status DC Lidocaine HCl 2 ml PRN 1X PRN ID PRIOR TO IV START; Start 09/30/16 at 07:00; Stop 10/01/16 at 06:59; Status DC Hydromorphone HCl (Dilaudid) 0.5 mg PRN Q10MIN PRN IV SEV PAIN, Second choice; Start 09/30/16 at 07:00; Stop 10/01/16 at 06:59; Status DC Prochlorperazine Edisylate (Compazine) 5 mg PACU PRN PRN IV NAUSEA, MRX1; Start 09/30/16 at 07:00; Stop 10/01/16 at 06:59; Status DC Lidocaine HCl 48 ml/Sodium Bicarbonate 12 meq/Miscellaneous 60 ml @ 60 mls/hr 1X PERIOP ONCE ID Last administered on 09/30/16t 14:54; Start 09/30/16 at 06:00 ; Stop 09/30/16 at 06:59; Status DC Cefazolin Sodium/ Dextrose 50 ml @ 100 mls/hr 1X PREOP IV Last administered on 09/30/16 17:02; Start 09/30/16 at 11:45; Stop 10/01/16 at 18:00; Status DC Midazolam HCl (Versed) 2 mg STK-MED ONCE .ROUTE ; Start 09/30/16 at 11:45; Stop 09/30/16 at 11:46; Status DC Fentanyl Citrate (Fentanyl 2ml Vial) 100 mcg STK-MED ONCE .ROUTE ; Start at 11:45; Stop 09/30/16 at 11:46; Status DC Propofol 20 ml @ As Directed STK-MED ONCE IV ; Start 09/30/16 at 11:46; Stop 09/30 at 11:47; Status DC Dexamethasone Sodium Phosphate (Decadron) 20 mg STK-MED ONCE .ROUTE ; Start 09/30 at 11:46; Stop 09/30/16 at 11:47; Status DC Ondansetron HCl (Zofran) 4 mg STK-MED ONCE .ROUTE ; Start 09/30/16 at 11:46; Stop 09/30/16 at 11:47; Status DC Lidocaine HCl (Lidocaine Pf 2% Vial) 5 ml STK-MED ONCE .ROUTE ; Start 09/30/16 at 11:46; Stop 09/30/16 at 11:47; Status DC Silver Sulfadiazine (Silvadene) 25 margie STK-MED ONCE TP ; Start 09/30/16 at 13:37 ; Stop 09/30/16 at 13:38; Status DC Dextrose (Dextrose 50%-Water Syringe) 12.5 gm 1X ONCE IV Last administered on 09/30/16 14:07; Start 09/30/16 at 14:00; Stop 09/30/16 at 14:02; Status DC Bacitracin 14 margie STK-MED ONCE TP Last administered on 09/30/16 15:29; Start at 15:06; Stop 09/30/16 at 15:07; Status DC Albuterol Sulfate (Ventolin Neb Soln) 2.5 mg STK-MED ONCE .ROUTE ; Start at 16:05; Stop 09/30/16 at 16:06; Status DC Albuterol Sulfate (Ventolin Neb Soln) 2.5 mg 1X ONCE NEB Last administered on 09/30/16 16:24; Start 09/30/16 at 16:30; Stop 09/30/16 at 16:31; Status DC Albuterol/ Ipratropium (Duoneb) 3 ml RTQID NEB Last administered on 10/05/16 07:01; Start 09/30/16 at 20:00 Hydralazine HCl (Apresoline) 10 mg PRN Q4HRS PRN IVP for SBP > 170 Last administered on 10/04/16 08:20; Start 09/30/16 at 17:30 Acetaminophen/ Hydrocodone Bitart (Lortab 5/325) 1 tab PRN Q6HRS PRN PO moderate - severe pain Last administered on 10/05/16 08:17; Start 10/01/16 at 14 :45 Morphine Sulfate 2 mg PRN Q2HR PRN IV PAIN Last administered on 10/03/16 23:53 ; Start 10/01/16 at 14:45 Amlodipine Besylate (Norvasc) 5 mg DAILY PO Last administered on 10/03/16 08: 49; Start 10/01/16 at 15:00; Stop 10/03/16 at 12:37; Status DC Furosemide (Lasix) 40 mg 1X ONCE IVP Last administered on 10/01/16 17:04; Start 10/01/16 at 15:15; Stop 10/01/16 at 15:16; Status DC Albuterol/ Ipratropium (Duoneb) 3 ml 1X ONCE NEB Last administered on 00:27; Start 10/03/16 at 00:30; Stop 10/03/16 at 00:31; Status DC Amlodipine Besylate (Norvasc) 10 mg DAILY PO Last administered on 10/05/16 08: 16; Start 10/04/16 at 09:00 Amlodipine Besylate (Norvasc) 5 mg 1X ONCE PO Last administered on 10/03/16 13:00; Start 10/03/16 at 13:00; Stop 10/03/16 at 13:01; Status DC Albuterol/ Ipratropium (Duoneb) 3 ml 1X ONCE NEB Last administered on 02:59; Start 10/04/16 at 03:00; Stop 10/04/16 at 03:01; Status DC Enoxaparin Sodium (Lovenox 100mg Syringe) 100 mg Q12HR SQ Last administered on 10/05/16 08:17; Start 10/04/16 at 09:00 Info (Anti-Coagulation Monitoring By Pharmacy) 1 each PRN DAILY PRN MC SEE COMMENTS; Start 10/04/16 at 08:45 Furosemide (Lasix) 80 mg 1X ONCE IVP Last administered on 10/04/16 10:21; Start 10/04/16 at 10:15; Stop 10/05/16 at 10:03; Status DC Hydralazine HCl (Apresoline) 50 mg BID PO Last administered on 10/05/16 08:15 ; Start 10/04/16 at 15:30 Furosemide (Lasix) 80 mg 1X ONCE IVP Last administered on 10/04/16 16:04; Start 10/04/16 at 16:00; Stop 10/05/16 at 10:03; Status DC Albuterol/ Ipratropium (Duoneb) 3 ml 1X ONCE NEB Last administered on 01:09; Start 10/05/16 at 01:00; Stop 10/05/16 at 01:01; Status DC Albuterol/ Ipratropium (Duoneb) 3 ml 1X ONCE NEB Last administered on 6/13/ 17at 05:00; Start 10/05/16 at 05:00; Stop 10/05/16 at 05:01; Status DC Furosemide (Lasix) 40 mg [id number] IVP ; Start 10/05/16 at 14:00 Active Scripts Active Levofloxacin 750 Mg Tablet 1 Tab PO DAILY Levemir Flextouch (Insulin Detemir) 100 Unit/1 Ml Insuln.pen 20 Units SQ QHS 30 Days Novolog Flexpen (Insulin Aspart) 100 Unit/1 Ml Insuln.pen 10 Units SQ TIDAC 30 Days Reported Percocet 5-325 Mg Tablet (Oxycodone/Acetaminophen) 1 Each Tablet 1 Tab PO PRN Q6HRS PRN Advair 100-50 Diskus (Fluticasone/Salmeterol) 1 Each Disk.w.dev 1 Puff IH BID Spiriva Respimat (Tiotropium [place]) 4 Gm Mist.inhal 2.5 Gm IH DAILY Symbicort 160-4.5 Mcg Inhaler (Budesonide/Formoterol Fumarate) 10.2 Gm Hfa.aer.ad 2 Puff IH BID Atorvastatin Calcium 20 Mg Tablet 20 Mg PO HS Lisinopril-Hctz 10-12.5 Mg Tab (Lisinopril/Hydrochlorothiazide) 1 Each Tablet 1 Tab PO DAILY Isosorbide Mononitrate Er (Isosorbide Mononitrate) 120 Mg Tab.er.24h 120 Mg PO DAILY Novolin N (Nph, Human Insulin Isophane) 100 Unit/1 Ml Vial 0 SQ Promethazine-Codeine Syrup (Promethazine Hcl/Codeine) 118 Ml Syrup 5 Ml PO Q4- 6HRS Diltiazem 24HR Cd (Diltiazem Hcl) 240 Mg Cap.er.24h 240 Mg PO DAILY NITROGLYCERIN SubLingual (Nitroglycerin) 0.4 Mg Tab.subl 0.4 Mg SL PRN Q5MIN PRN Atorvastatin Calcium 40 Mg Tablet 40 Mg PO HS Vitals/I & O Vital Sign - Last 24 Hours 10/04/16 10/04/16 10/04/16 10/04/16 10:48 11:00 15:00 16:00 Temp 97.9 98.7 97.9 98.7 Pulse 97 83 Resp 26 24 B/P (MAP) 158/76 (103) 151/79 (103) Pulse Ox 90 96 O2 Delivery Nasal Cannula Nasal Cannula Nasal Cannula Nasal Cannula O2 Flow Rate 2.0 2.0 2.0 2.0 10/04/16 10/04/16 10/04/16 10/04/16 16:18 19:50 19:50 20:00 Temp 98.6 98.6 Pulse 85 94 Resp 22 B/P (MAP) 153/74 159/80 (106) Pulse Ox 100 96 O2 Delivery Nasal Cannula Nasal Cannula Nasal Cannula O2 Flow Rate 2.0 2.0 1.0 10/04/16 10/04/16 10/04/16 10/05/16 23:00 23:03 23:05 01:10 Temp 98.4 98.4 Pulse 93 93 Resp 18 B/P (MAP) 149/77 (101) 149/77 Pulse Ox 88 94 90 O2 Delivery Room Air Nasal Cannula Room Air O2 Flow Rate 2.0 10/05/16 10/05/16 10/05/16 10/05/16 03:25 05:01 07:03 07:25 Temp 98.3 98.3 98.3 98.3 Pulse 90 88 Resp 22 24 B/P (MAP) 146/74 (98) 146/76 (99) Pulse Ox 94 98 97 97 O2 Delivery Nasal Cannula Nasal Cannula Nasal Cannula Nasal Cannula O2 Flow Rate 2.0 2.0 2.0 2.0 10/05/16 10/05/16 10/05/16 10/05/16 07:51 08:15 08:16 08:16 Pulse 87 87 87 B/P (MAP) 160/85 160/85 160/85 O2 Delivery Nasal Cannula O2 Flow Rate 2.0 10/05/16 10/05/16 10/05/16 08:17 08:17 09:17 Pulse 87 B/P (MAP) 160/85 Pulse Ox 97 97 O2 Delivery Nasal Cannula Nasal Cannula O2 Flow Rate 2.0 2.0 Intake and Output 10/04/16 10/04/16 10/05/16 15:00 23:00 07:00 Intake Total 320 ml 480 ml Output Total 1200 ml 800 ml Balance -880 ml -320 ml VIKASH UMANZOR MD Oct 05, 2016 10:25
--- NOTE | 2016-10-05 10:25 | PDOC ---
Provider Note Provider Note POD # 8 rt pop DP bypass, then toe amps Pt comfortable Rt leg incisions clean, 2+ graft pulse Imp: Patent bypass rt leg Plan: To rehab or SN when medically stable DAJA AGUILAR MD Oct 05, 2016 10:25
--- NOTE | 2016-10-05 10:35 | PDOC ---
Renal-Progress Notes Subjective Notes Notes BREATHING MUCH BETTER BUT STILL HAS SOME SOB History of Present Illness Hx of present illness STABLE Vitals Vitals Vital Signs Date Time Temp Pulse Resp B/P (MAP) Pulse Ox O2 Delivery O2 Flow Rate FiO2 10/05/16 09:17 97 Nasal Cannula 2.0 10/05/16 08:17 87 160/85 10/05/16 07:25 98.3 24 98.3 Weight Weight [ ] I.O. Intake and Output Intake and Output 10/05/16 06:59 Intake Total 800 ml Output Total 2000 ml Balance -1200 ml Intake Oral 800 ml Output Urine Total 2000 ml Labs Labs Laboratory Tests Test 10/04/16 12:12 10/04/16 16:59 10/04/16 20:48 10/05/16 05:44 Glucose (Fingerstick) 235 mg/dL (70-99) 146 mg/dL (70-99) 138 mg/dL (70-99) Sodium Level 139 mmol/L (136-145) Potassium Level 4.3 mmol/L (3.5-5.1) Chloride Level 102 mmol/L (98-107) Carbon Dioxide Level 31 mmol/L (21-32) Anion Gap 6 (6-14) Blood Urea Nitrogen 44 mg/dL (8-26) Creatinine 1.8 mg/dL (0.7-1.3) Estimated GFR (Cockcroft-Gault) 44.9 Glucose Level 108 mg/dL (70-99) Calcium Level 8.5 mg/dL (8.5-10.1) Magnesium Level 2.3 mg/dL (1.8-2.4) Test 10/05/16 07:34 Glucose (Fingerstick) 80 mg/dL (70-99) Micro Micro Microbiology 09/22/16 Blood Culture - Final, Complete NO GROWTH AFTER 5 DAYS 09/30/16 Anaerobic/Aerobic Culture - Final, Complete 09/30/16 Anaerobic Culture Result 1 (MARÍA) - Final, Complete 09/30/16 Aerobic Culture - Final, Complete 09/30/16 Aerobic Culture Result 1 (MARÍA) - Final, Complete Review of Systems Constitutional: yes: no symptom reported Physical Exam General Appearance: no apparent distress Skin: warm Respiratory: decreased breath sounds Heart: S1S2 Abdomen: bowel sounds present Genitourinary: bladder flat Neurology: other (SOMNOLENT) Musculoskeletal: Osteoarthritis Assessment Assessment IMP HYPERVOLEMIA WITH PROB CHF ? PULMONARY INFILTRATES AND PNA AECOPD RESP ACIDOSIS BASIM BETTER WITH CR 2.8 TO 1.7 CKD STAGE 3 WITH CR OF 1.5-2.0 PAD-S/P R POP-DP BYPASS AND TOE AMP PLAN IV LASIX SCHEDULED PULMONARY EVAL AND TX CARDIOLOGY EVAL AND TX ERIKA IBARRA MD Oct 05, 2016 10:35
[2016-10-05 11:00] VITALS: BP 135/64
--- NOTE | 2016-10-05 12:46 | RAD ---
Lung scan 10/05/2016 Clinical history: Shortness of breath and chest pain intermittently for several years. Technique: After the administration of 12.0 mCi of Xenon-133 gas, ventilation images of both lungs were obtained using the gamma camera. After the intravenous administration of 6.3 mCi of Technetium 99m MAA, perfusion images of both lungs were obtained using the gamma camera. Findings: Comparison is made to a portable chest radiograph dated 10/04/2016. This demonstrates cardiomegaly with small bilateral pleural effusions and congestive changes involving both lungs. Slightly heterogeneous ventilation and perfusion to both lungs is seen. No unmatched perfusion defect is noted. These findings are consistent with a low probability study for pulmonary embolism. Impression: Low probability study.
[2016-10-05] MEDS: FUROSEMIDE 40 MG/4 ML VIAL. IVP SCH (14:34)
[2016-10-05 15:00] VITALS: BP 142/70
--- NOTE | 2016-10-05 15:33 | RAD ---
EXAM: Bilateral lower extremity venous Doppler. HISTORY: Bilateral lower extremity pain/swelling. Pulmonary embolism. COMPARISON: None. FINDINGS: Grayscale and Doppler analysis of the both lower extremity deep venous systems was performed with graded compression and augmentation. The common femoral, greater saphenous, superficial femoral, popliteal and calf veins were assessed. There is no evidence of deep venous thrombosis. The right posterior tibial vein is not well seen. Subcutaneous edema is noted bilaterally. A low lymph node have fatty hair and are likely benign. IMPRESSION: 1. No evidence of deep venous thrombosis.
[2016-10-05 19:50] VITALS: BP 139/80
[2016-10-05] MEDS: ATORVASTATIN CALCIUM 40 MG TABLET. PO SCH (21:10)
[2016-10-05] MEDS: INSULIN DETEMIR 300 UNITS/3 ML INSULN.PEN. SQ SCH (21:13)
[2016-10-05 23:24] VITALS: BP 137/74
[2016-10-06 03:00] VITALS: BP 153/77
[2016-10-06 04:38] LABS: BASO # 0.1 x10^3/uL (0.0-0.2); BASO % 1 % (0-3); EOS % 2 % (0-3); HEMATOCRIT 26.8 % (39.0-53.0); HEMOGLOBIN 8.9 g/dL (13.0-17.5); LYMPH # 1.3 x10^3/uL (1.0-4.8); LYMPH % 14 % (24-48); MEAN CORPUSCULAR HEMOGLOBIN 28 pg (25-35); MEAN CORPUSCULAR HGB CONC 33 g/dL (31-37); MEAN CORPUSCULAR VOLUME 85 fL (79-100); MONO % 10 % (0-9); NEUT % 73 % (31-73); PLATELET COUNT 337 x10^3/uL (140-400); RED BLOOD COUNT 3.13 x10^6/uL (4.30-5.70); RED CELL DISTRIBUTION WIDTH 16.5 % (11.5-14.5)
[2016-10-06 05:17] LABS: CALCIUM 8.6 mg/dL (8.5-10.1); CREATININE 2.1 mg/dL (0.7-1.3); GFR 37.5; MAGNESIUM 2.3 mg/dL (1.8-2.4); POTASSIUM 4.3 mmol/L (3.5-5.1)
[2016-10-06] MEDS ORDERED: IPRATRPIUM/ALBUTEROL 0.5/2.5MG 3 ML NEBU. NEB ONE (05:30)
[2016-10-06 07:00] VITALS: BP 158/81
[2016-10-06] MEDS: IPRATRPIUM/ALBUTEROL 0.5/2.5MG 3 ML NEBU. NEB SCH ×4 (07:16→19:50)
[2016-10-06] MEDS: BUDESONIDE 0.5 MG/2 ML NEBU. NEB SCH ×2 (07:16→19:50)
[2016-10-06] MEDS: INSULIN ASPART 300 UNITS/3 ML INSULN.PEN SQ SCH ×3 (08:00→17:00)
[2016-10-06] MEDS: ISOSORBIDE MONONITRATE ER 30 MG TAB.ER.24H PO SCH (08:36)
[2016-10-06] MEDS: amLODIPine BESYLATE 10 MG TABLET PO SCH (08:37)
[2016-10-06] MEDS: BENZONATATE 100 MG CAPSULE. PO SCH ×3 (08:37→21:54)
[2016-10-06] MEDS: CLOPIDOGREL BISULFATE 75 MG TABLET PO SCH (08:38)
[2016-10-06] MEDS: HYDROcodone/APAP 5/325MG 1 TAB TABLET PO PRN (08:38)
[2016-10-06] MEDS: FUROSEMIDE 40 MG/4 ML VIAL. IVP SCH ×2 (08:39→16:00)
[2016-10-06 11:00] VITALS: BP 147/74
--- NOTE | 2016-10-06 11:16 | PDOC ---
PROGRESS NOTES Chief Complaint Chief Complaint 1, Hypoglycemia with acute encephalopathy POA, resolved 2. 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 Mod PCM 4. High fall risk 5. CLaudication R>L 6. Gen weakness 7. Fall, non injury (10/06) 8/ sp R toe ampuitations 9. s./p fem pop bypass, R Old dx: 2. HX bilateral PE with cardiac arrest ([facility] 2016) sec to PE 3. CLean cardiac cath 4.Hx Non-occlusive thrombus, R leg (07/15) 5. COPD on home o2? exacerbation - wheezy 6. DM2; insulin requiring with HYPOGLYCEMIA 7. Hx Oliguric Hyperkalemic renal failure - stable 8 Dyslipidemia on statin 9. HX significant angioedema likely sec to ADAN inhib needing intubation (06/2016) History of Present Illness History of Present Illness NOn injury fall this AM - attenpted to get up - is close to the RN station already Looks soa he denies VQ scan and US legs show NO NEW clots ON levenox 40 SQ- hx of signif bleeding on full AC CAnt pay $160 as co pay for SNU - but meets criteria for SNU HH currently set up PLAN: COnt IV lasix BID maintain morton MOntior lytes while on lasix (crea 3 stable) Vitals Vitals Vital Signs Date Time Temp Pulse Resp B/P (MAP) Pulse Ox O2 Delivery O2 Flow Rate FiO2 10/06/16 11:00 98.1 100 20 147/74 (98) 90 Room Air 98.1 10/06/16 09:38 2.0 Physical Exam General: Alert, Oriented X3, Cooperative, No acute distress Heart: Regular rate, Normal S1, Normal S2, No murmurs, Gallops, Rubs Lungs: Other (bl decreased bs) Abdomen: Normal bowel sounds, Soft, No tenderness Extremities: Other (incisions in the right lower sternum are clean dry and intact, the patient has a palpable graft pulse in the right lower extremity, the toe AP sedation sites are clean and dry, the heel debridement site is stable with early granulation tissue) Skin: No breakdown Labs LABS Laboratory Tests Test 10/05/16 12:41 10/05/16 16:43 10/05/16 19:54 10/06/16 03:55 Glucose (Fingerstick) 141 mg/dL (70-99) 174 mg/dL (70-99) 142 mg/dL (70-99) White Blood Count 9.0 x10^3/uL (4.0-11.0) Red Blood Count 3.13 x10^6/uL (4.30-5.70) Hemoglobin 8.9 g/dL (13.0-17.5) Hematocrit 26.8 % (39.0-53.0) Mean Corpuscular Volume 85 fL (79-100) Mean Corpuscular Hemoglobin 28 pg (25-35) Mean Corpuscular Hemoglobin Concent 33 g/dL (31-37) Red Cell Distribution Width 16.5 % (11.5-14.5) Platelet Count 337 x10^3/uL (140-400) Neutrophils (%) (Auto) 73 % (31-73) Lymphocytes (%) (Auto) 14 % (24-48) Monocytes (%) (Auto) 10 % (0-9) Eosinophils (%) (Auto) 2 % (0-3) Basophils (%) (Auto) 1 % (0-3) Neutrophils # (Auto) 6.6 x10^3uL (1.8-7.7) Lymphocytes # (Auto) 1.3 x10^3/uL (1.0-4.8) Monocytes # (Auto) 0.9 x10^3/uL (0.0-1.1) Eosinophils # (Auto) 0.2 x10^3/uL (0.0-0.7) Basophils # (Auto) 0.1 x10^3/uL (0.0-0.2) Sodium Level 139 mmol/L (136-145) Potassium Level 4.3 mmol/L (3.5-5.1) Chloride Level 101 mmol/L (98-107) Carbon Dioxide Level 33 mmol/L (21-32) Anion Gap 5 (6-14) Blood Urea Nitrogen 47 mg/dL (8-26) Creatinine 2.1 mg/dL (0.7-1.3) Estimated GFR (Cockcroft-Gault) 37.5 Glucose Level 101 mg/dL (70-99) Calcium Level 8.6 mg/dL (8.5-10.1) Magnesium Level 2.3 mg/dL (1.8-2.4) Test 10/06/16 07:52 Glucose (Fingerstick) 89 mg/dL (70-99) Review of Systems Review of Systems CPM NOt ready for dc today - will be a readmission BMP duyen Assessment and Plan Assessmemt and Plan Problems Medical Problems: (1) Hypoglycemia Status: Acute Problems: Comment Review of Relevant I have reviewed the following items valerie (where applicable) has been applied. Labs Laboratory Tests Test 10/04/16 12:12 10/04/16 16:59 10/04/16 20:48 10/05/16 05:44 Glucose (Fingerstick) 235 mg/dL (70-99) 146 mg/dL (70-99) 138 mg/dL (70-99) Sodium Level 139 mmol/L (136-145) Potassium Level 4.3 mmol/L (3.5-5.1) Chloride Level 102 mmol/L (98-107) Carbon Dioxide Level 31 mmol/L (21-32) Anion Gap 6 (6-14) Blood Urea Nitrogen 44 mg/dL (8-26) Creatinine 1.8 mg/dL (0.7-1.3) Estimated GFR (Cockcroft-Gault) 44.9 Glucose Level 108 mg/dL (70-99) Calcium Level 8.5 mg/dL (8.5-10.1) Magnesium Level 2.3 mg/dL (1.8-2.4) Test 10/05/16 07:34 10/05/16 12:41 10/05/16 16:43 10/05/16 19:54 Glucose (Fingerstick) 80 mg/dL (70-99) 141 mg/dL (70-99) 174 mg/dL (70-99) 142 mg/dL (70-99) Test 10/06/16 03:55 10/06/16 07:52 White Blood Count 9.0 x10^3/uL (4.0-11.0) Red Blood Count 3.13 x10^6/uL (4.30-5.70) Hemoglobin 8.9 g/dL (13.0-17.5) Hematocrit 26.8 % (39.0-53.0) Mean Corpuscular Volume 85 fL (79-100) Mean Corpuscular Hemoglobin 28 pg (25-35) Mean Corpuscular Hemoglobin Concent 33 g/dL (31-37) Red Cell Distribution Width 16.5 % (11.5-14.5) Platelet Count 337 x10^3/uL (140-400) Neutrophils (%) (Auto) 73 % (31-73) Lymphocytes (%) (Auto) 14 % (24-48) Monocytes (%) (Auto) 10 % (0-9) Eosinophils (%) (Auto) 2 % (0-3) Basophils (%) (Auto) 1 % (0-3) Neutrophils # (Auto) 6.6 x10^3uL (1.8-7.7) Lymphocytes # (Auto) 1.3 x10^3/uL (1.0-4.8) Monocytes # (Auto) 0.9 x10^3/uL (0.0-1.1) Eosinophils # (Auto) 0.2 x10^3/uL (0.0-0.7) Basophils # (Auto) 0.1 x10^3/uL (0.0-0.2) Sodium Level 139 mmol/L (136-145) Potassium Level 4.3 mmol/L (3.5-5.1) Chloride Level 101 mmol/L (98-107) Carbon Dioxide Level 33 mmol/L (21-32) Anion Gap 5 (6-14) Blood Urea Nitrogen 47 mg/dL (8-26) Creatinine 2.1 mg/dL (0.7-1.3) Estimated GFR (Cockcroft-Gault) 37.5 Glucose Level 101 mg/dL (70-99) Calcium Level 8.6 mg/dL (8.5-10.1) Magnesium Level 2.3 mg/dL (1.8-2.4) Glucose (Fingerstick) 89 mg/dL (70-99) Laboratory Tests Test 10/05/16 12:41 10/05/16 16:43 10/05/16 19:54 10/06/16 03:55 Glucose (Fingerstick) 141 mg/dL (70-99) 174 mg/dL (70-99) 142 mg/dL (70-99) White Blood Count 9.0 x10^3/uL (4.0-11.0) Red Blood Count 3.13 x10^6/uL (4.30-5.70) Hemoglobin 8.9 g/dL (13.0-17.5) Hematocrit 26.8 % (39.0-53.0) Mean Corpuscular Volume 85 fL (79-100) Mean Corpuscular Hemoglobin 28 pg (25-35) Mean Corpuscular Hemoglobin Concent 33 g/dL (31-37) Red Cell Distribution Width 16.5 % (11.5-14.5) Platelet Count 337 x10^3/uL (140-400) Neutrophils (%) (Auto) 73 % (31-73) Lymphocytes (%) (Auto) 14 % (24-48) Monocytes (%) (Auto) 10 % (0-9) Eosinophils (%) (Auto) 2 % (0-3) Basophils (%) (Auto) 1 % (0-3) Neutrophils # (Auto) 6.6 x10^3uL (1.8-7.7) Lymphocytes # (Auto) 1.3 x10^3/uL (1.0-4.8) Monocytes # (Auto) 0.9 x10^3/uL (0.0-1.1) Eosinophils # (Auto) 0.2 x10^3/uL (0.0-0.7) Basophils # (Auto) 0.1 x10^3/uL (0.0-0.2) Sodium Level 139 mmol/L (136-145) Potassium Level 4.3 mmol/L (3.5-5.1) Chloride Level 101 mmol/L (98-107) Carbon Dioxide Level 33 mmol/L (21-32) Anion Gap 5 (6-14) Blood Urea Nitrogen 47 mg/dL (8-26) Creatinine 2.1 mg/dL (0.7-1.3) Estimated GFR (Cockcroft-Gault) 37.5 Glucose Level 101 mg/dL (70-99) Calcium Level 8.6 mg/dL (8.5-10.1) Magnesium Level 2.3 mg/dL (1.8-2.4) Test 10/06/16 07:52 Glucose (Fingerstick) 89 mg/dL (70-99) Microbiology 09/22/16 Blood Culture - Final, Complete NO GROWTH AFTER 5 DAYS 09/30/16 Anaerobic/Aerobic Culture - Final, Complete 09/30/16 Anaerobic Culture Result 1 (MARÍA) - Final, Complete 09/30/16 Aerobic Culture - Final, Complete 09/30/16 Aerobic Culture Result 1 (MARÍA) - Final, Complete Medications Current Medications Dextrose (Dextrose 50%-Water Syringe) 25 gm STK-MED ONCE IV ; Start 09/22/16 at 10:39; Stop 09/22/16 at 10:40; Status DC Dextrose 500 ml @ 30 mls/hr 1X ONCE IV Last administered on 09/22/16 11:52; Start 09/22/16 at 11:45; Stop 09/22/16 at 17:38; Status DC Dextrose (Dextrose 50%-Water Syringe) 25 gm STK-MED ONCE IV ; Start 09/22/16 at 11:45; Stop 09/22/16 at 11:46; Status DC Dextrose (Dextrose 50%-Water Syringe) 25 gm 1X ONCE IV Last administered on 10:45; Start 09/22/16 at 12:00; Stop 09/22/16 at 12:01; Status DC Dextrose (Dextrose 50%-Water Syringe) 25 gm 1X ONCE IV Last administered on 11:40; Start 09/22/16 at 12:00; Stop 09/22/16 at 12:01; Status DC Nitroglycerin (Nitrostat) 0.4 mg PRN Q5MIN PRN SL CHEST PAIN Last administered on 09/24/16 03:18; Start 09/22/16 at 12:00 Ondansetron HCl (Zofran) 4 mg PRN Q8HRS PRN IV NAUSEA/VOMITING; Start 09/22/16 at 12:30; Stop 09/23/16 at 12:29; Status DC Levofloxacin/ Dextrose (Levaquin Per Pharmacy) 1 each PRN DAILY PRN MC SEE COMMENTS; Start 09/22/16 at 12:45; Stop 09/25/16 at 15:18; Status DC Levofloxacin/ Dextrose 150 ml @ 100 mls/hr Q48H IV Last administered on 14:46; Start 09/22/16 at 13:00; Stop 10/01/16 at 14:42; Status DC Sodium Chloride 500 ml @ 1,000 mls/hr 1X ONCE IV Last administered on 13:10; Start 09/22/16 at 13:15; Stop 09/22/16 at 13:44; Status DC Dextrose (Dextrose 50%-Water Syringe) 25 gm 1X ONCE IV Last administered on 13:11; Start 09/22/16 at 13:15; Stop 09/22/16 at 13:16; Status DC Insulin Aspart (NovoLOG) 0-5 UNITS TIDWMEALS SQ Last administered on 09/22/16 18:17; Start 09/22/16 at 17:00; Stop 09/23/16 at 09:23; Status DC Dextrose (Dextrose 50%-Water Syringe) 12.5 gm PRN Q15MIN PRN IV SEE COMMENTS Last administered on 09/22/16 13:58; Start 09/22/16 at 14:00 Labetalol HCl (Normodyne) 20 mg PRN Q2HR PRN IVP HYPERTENSION, SEE COMMENTS Last administered on 09/30/16 16:25; Start 09/22/16 at 14:15; Stop 09/30/16 at 17 :24; Status DC Amlodipine Besylate (Norvasc) 10 mg DAILY PO ; Start 09/23/16 at 09:00; Status UNV Atorvastatin Calcium (Lipitor) 40 mg HS PO Last administered on 10/05/16 21:10 ; Start 09/22/16 at 21:00 Diltiazem HCl (Cardizem 24hr Cd) 240 mg DAILY PO Last administered on 08:37; Start 09/22/16 at 15:00 Isosorbide Mononitrate (Imdur) 120 mg DAILY PO Last administered on 10/06/16 08:36; Start 09/22/16 at 15:00 Albuterol/ Ipratropium (Duoneb) 3 ml STK-MED ONCE .ROUTE ; Start 09/22/16 at 15: 06; Stop 09/22/16 at 15:07; Status DC Albuterol/ Ipratropium (Duoneb) 3 ml RTQID NEB Last administered on 09/30/16 16 :29; Start 09/22/16 at 16:00; Stop 09/30/16 at 16:50; Status DC Budesonide (Pulmicort) 0.5 mg RTBID NEB Last administered on 10/06/16 07:16; Start 09/22/16 at 20:00 Magnesium Sulfate/ Dextrose 50 ml @ 25 mls/hr PRN DAILY PRN IV for Mag < 1.7 on am labs; Start 09/22/16 at 15:45 Sodium Chloride 1,000 ml @ 100 mls/hr Q10H IV Last administered on 09/23/16 01 :35; Start 09/22/16 at 15:45; Stop 09/23/16 at 07:45; Status DC Dextrose 1,000 ml @ 50 mls/hr Q20H IV Last administered on 09/22/16 17:39; Start 09/22/16 at 17:45; Stop 09/23/16 at 07:45; Status DC Insulin Aspart (NovoLOG) 0-9 UNITS TIDWMEALS SQ Last administered on 10/05/16 17:29; Start 09/23/16 at 12:00 Dextrose (Dextrose 50%-Water Syringe) 12.5 gm PRN Q15MIN PRN IV SEE COMMENTS; Start 09/23/16 at 09:30; Stop 09/23/16 at 12:56; Status DC Albuterol/ Ipratropium (Duoneb) 3 ml RTQID NEB ; Start 09/23/16 at 12:00; Stop at 12:56; Status DC Prednisone (Prednisone) 60 mg 1X ONCE PO Last administered on 09/23/16 10:00; Start 09/23/16 at 09:30; Stop 09/23/16 at 09:31; Status DC Benzonatate (Tessalon Perle) 100 mg [id number] PO Last administered on 10/06/16 08 :37; Start 09/23/16 at 09:30 Furosemide (Lasix) 20 mg 1X ONCE IVP Last administered on 09/23/16 17:30; Start 09/23/16 at 17:30; Stop 09/23/16 at 17:31; Status DC Furosemide (Lasix) 80 mg 1X ONCE IVP Last administered on 09/24/16 15:56; Start 09/24/16 at 11:00; Stop 09/24/16 at 11:03; Status DC Acetylcysteine (Mucomyst 20% Oral Solution) 1,200 mg BID PO Last administered on 09/26/16 08:51; Start 09/24/16 at 11:30; Stop 09/26/16 at 11:29; Status DC Darbepoetin Arsh (Aranesp) 60 mcg [id number] SQ Last administered on 10/01/16 21: 48; Start 09/24/16 at 21:00 Tramadol HCl (Ultram) 50 mg PRN Q6HRS PRN PO mild pain Last administered on 21:19; Start 09/24/16 at 11:30 Iohexol (Omnipaque 300 Mg/ml) 100 ml STK-MED ONCE .ROUTE ; Start 09/24/16 at 12: 12; Stop 09/24/16 at 12:13; Status DC Lidocaine/Sodium Bicarbonate (Buffered Lidocaine 1%) 20 ml STK-MED ONCE IJ ; Start 09/24/16 at 12:12; Stop 09/24/16 at 12:13; Status DC Midazolam HCl (Versed) 5 mg STK-MED ONCE .ROUTE ; Start 09/24/16 at 12:12; Stop 09/24/16 at 12:13; Status DC Fentanyl Citrate (Fentanyl 5ml Vial) 250 mcg STK-MED ONCE .ROUTE ; Start at 12:12; Stop 09/24/16 at 12:13; Status DC Heparin Sodium/ Sodium Chloride 2,000 ml @ As Directed STK-MED ONCE .ROUTE ; Start 09/24/16 at 12:13; Stop 09/24/16 at 12:14; Status DC Iodixanol (Visipaque 320) 100 ml STK-MED ONCE .ROUTE ; Start 09/24/16 at 12:13; Stop 09/24/16 at 12:14; Status DC Heparin Sodium (Porcine) (Heparin Sodium) 10,000 unit STK-MED ONCE .ROUTE ; Start 09/24/16 at 12:15; Stop 09/24/16 at 12:16; Status DC Insulin Detemir (Levemir) 10 units QHS SQ Last administered on 10/05/16 21:13 ; Start 09/24/16 at 21:00 Heparin Sodium/ Sodium Chloride 1,000 unit 1X ONCE IART Last administered on 14:52; Start 09/24/16 at 14:00; Stop 09/24/16 at 14:01; Status DC Lidocaine/Sodium Bicarbonate (Buffered Lidocaine 1%) 20 ml 1X ONCE IJ Last administered on 09/24/16 14:00; Start 09/24/16 at 14:00; Stop 09/24/16 at 14:01; Status DC Midazolam HCl (Versed) 5 mg 1X ONCE IV ; Start 09/24/16 at 14:00; Stop 09/24/16 at 14:01; Status DC Fentanyl Citrate (Fentanyl 5ml Vial) 250 mcg 1X ONCE IV ; Start 09/24/16 at 14: 00; Stop 09/24/16 at 14:01; Status DC Iohexol (Omnipaque 300 Mg/ml) 100 ml 1X ONCE IART Last administered on 14:51; Start 09/24/16 at 14:00; Stop 09/24/16 at 14:01; Status DC Iodixanol (Visipaque 320) 100 ml 1X ONCE IART Last administered on 09/24/16 14 :00; Start 09/24/16 at 14:00; Stop 09/24/16 at 14:01; Status DC Heparin Sodium (Porcine) (Heparin Sodium) 4,000 unit 1X ONCE IV Last administered on 09/24/16 14:00; Start 09/24/16 at 14:00; Stop 09/24/16 at 14:01; Status DC Info (Do NOT chart on this entry -- for MONITORING) 1 each PRN DAILY PRN MC SEE COMMENTS; Start 09/24/16 at 14:15; Stop 09/26/16 at 14:14; Status DC Clopidogrel Bisulfate (Plavix) 300 mg 1X ONCE PO Last administered on 16:01; Start 09/24/16 at 15:30; Stop 09/24/16 at 15:31; Status DC Clopidogrel Bisulfate (Plavix) 75 mg [id number] PO Last administered on 08:38; Start 09/25/16 at 08:00; Stop 10/25/16 at 08:00 Ringer's Solution 1,000 ml @ 100 mls/hr Q10H IV ; Start 09/27/16 at 00:01; Stop 09/27/16 at 00:01; Status DC Cefazolin Sodium/ Dextrose 50 ml @ 100 mls/hr 1X PREOP PRN IV SEE COMMENTS Last administered on 09/27/16 13:22; Start 09/27/16 at 06:00; Stop 09/27/16 at 18: 00; Status DC Heparin Sodium (Porcine) 5000 unit/Sodium Chloride 505 ml @ 505 mls/hr 1X PERIOP ONCE IRR Last administered on 09/27/16 13:36; Start 09/27/16 at 07:15; Stop 09/27/16 at 08:14; Status DC Cefazolin Sodium 1 gm/Sodium Chloride 500 ml @ 500 mls/hr 1X PERIOP ONCE IRR Last administered on 09/27/16 13:36; Start 09/27/16 at 07:15; Stop 09/27/16 at 08: 14; Status DC Furosemide (Lasix) 40 mg 1X ONCE IVP Last administered on 09/27/16 13:20; Start 09/27/16 at 11:00; Stop 09/27/16 at 11:01; Status DC Lidocaine HCl (Lidocaine Pf 2% Vial) 5 ml STK-MED ONCE .ROUTE ; Start 09/27/16 at 11:42; Stop 09/27/16 at 11:43; Status DC Ondansetron HCl (Zofran) 4 mg STK-MED ONCE .ROUTE ; Start 09/27/16 at 11:42; Stop 09/27/16 at 11:43; Status DC Famotidine (Pepcid) 20 mg STK-MED ONCE .ROUTE ; Start 09/27/16 at 11:42; Stop 09/27/16 at 11:43; Status DC Dexamethasone Sodium Phosphate (Decadron) 20 mg STK-MED ONCE .ROUTE ; Start 09/27 at 11:42; Stop 09/27/16 at 11:43; Status DC Propofol 20 ml @ As Directed STK-MED ONCE IV ; Start 09/27/16 at 11:42; Stop 09/27 at 11:43; Status DC Rocuronium Stoughton (Zemuron) 50 mg STK-MED ONCE .ROUTE ; Start 09/27/16 at 11:45 ; Stop 09/27/16 at 11:46; Status DC Fentanyl Citrate (Fentanyl 5ml Vial) 250 mcg STK-MED ONCE .ROUTE ; Start at 11:46; Stop 09/27/16 at 11:47; Status DC Cellulose 1 each STK-MED ONCE .ROUTE ; Start 09/27/16 at 12:04; Stop 09/27/16 at 12:05; Status DC Bupivacaine HCl (Marcaine 0.25%) 50 ml STK-MED ONCE .ROUTE ; Start 09/27/16 at 12 :04; Stop 09/27/16 at 12:05; Status DC Iohexol (Omnipaque 300 Mg/ml) 100 ml STK-MED ONCE .ROUTE ; Start 09/27/16 at 12: 05; Stop 09/27/16 at 12:06; Status DC Gelatin (Gelfoam Size 100) 1 each STK-MED ONCE .ROUTE ; Start 09/27/16 at 12:05 ; Stop 09/27/16 at 12:06; Status DC Papaverine HCl 60 mg STK-MED ONCE .ROUTE ; Start 09/27/16 at 12:05; Stop 09/27/16 at 12:06; Status DC Thrombin 20,000 unit STK-MED ONCE TP ; Start 09/27/16 at 12:05; Stop 09/27/16 at 12:06; Status DC Lidocaine HCl 1 ml STK-MED ONCE .ROUTE ; Start 09/27/16 at 12:35; Stop 09/27/16 at 12:36; Status DC Ringer's Solution 1,000 ml @ 75 mls/hr [id number] IV Last administered on t 17:03; Start 09/27/16 at 13:30; Stop 09/28/16 at 12:44; Status DC Furosemide (Lasix) 40 mg STK-MED ONCE .ROUTE ; Start 09/27/16 at 13:34; Stop 09/27 at 13:35; Status DC Heparin Sodium (Porcine) (Heparin Sodium) 10,000 unit STK-MED ONCE .ROUTE ; Start 09/27/16 at 14:29; Stop 09/27/16 at 14:30; Status DC Glycopyrrolate (Robinul) 1 mg STK-MED ONCE .ROUTE ; Start 09/27/16 at 16:00; Stop 09/27/16 at 16:01; Status DC Neostigmine Methylsulfate 5 mg STK-MED ONCE .ROUTE ; Start 09/27/16 at 16:00; Stop 09/27/16 at 16:01; Status DC Desflurane (Suprane) 90 ml STK-MED ONCE IH ; Start 09/27/16 at 16:00; Stop at 16:01; Status DC Bacitracin 14 margie STK-MED ONCE TP Last administered on 09/27/16 16:12; Start at 16:14; Stop 09/27/16 at 16:15; Status DC Propofol 20 ml @ As Directed STK-MED ONCE IV ; Start 09/27/16 at 16:28; Stop 09/27 at 16:29; Status DC Fentanyl Citrate (Fentanyl 2ml Vial) 25 mcg PRN Q5MIN PRN IV Acute Pain; Start 09/27/16 at 16:45; Stop 09/28/16 at 16:44; Status DC Fentanyl Citrate (Fentanyl 2ml Vial) 50 mcg PRN Q5MIN PRN IV Acute Pain Last administered on 09/27/16 17:21; Start 09/27/16 at 16:45; Stop 09/28/16 at 16:44; Status DC Morphine Sulfate 2 mg PRN Q10MIN PRN IV Mild Pain Last administered on 17:00; Start 09/27/16 at 16:45; Stop 09/28/16 at 16:44; Status DC Hydromorphone HCl (Dilaudid) 0.5 mg PRN Q10MIN PRN IV Moderate to severe pain; Start 09/27/16 at 16:45; Stop 09/28/16 at 16:44; Status DC Ondansetron HCl (Zofran) 4 mg PRN Q6HRS PRN IV Nausea, 2nd Choice; Start at 16:45; Stop 09/28/16 at 16:44; Status DC Prochlorperazine Edisylate (Compazine) 5 mg PRN Q6HRS PRN IV Nausea/Vomiting, 2nd Choice; Start 09/27/16 at 16:45; Stop 09/28/16 at 16:44; Status DC Haloperidol Lactate (Haldol) 5 mg STK-MED ONCE .ROUTE ; Start 09/27/16 at 17:28; Stop 09/27/16 at 17:29; Status DC Haloperidol Lactate (Haldol) 2.5 mg 1X PACU PRN IVP AGITATION Last administered on 09/27/16 18:07; Start 09/27/16 at 17:30; Stop 09/28/16 at 15:58; Status DC Furosemide (Lasix) 80 mg 1X ONCE IVP Last administered on 09/28/16 11:19; Start 09/28/16 at 11:00; Stop 09/28/16 at 11:01; Status DC Cefazolin Sodium/ Dextrose 50 ml @ 100 mls/hr 1X PREOP PRN IV GRADUATE RECRUITER FOR OR; Start 09/30/16 at 06:00; Stop 09/30/16 at 08:00; Status DC Albuterol/ Ipratropium (Duoneb) 3 ml 1X ONCE NEB Last administered on 00:07; Start 09/29/16 at 00:00; Stop 09/29/16 at 00:12; Status DC Fentanyl Citrate (Fentanyl 2ml Vial) 25 mcg PRN Q5MIN PRN IV MILD PAIN; Start 09/30/16 at 07:00; Stop 10/01/16 at 06:59; Status DC Fentanyl Citrate (Fentanyl 2ml Vial) 50 mcg PRN Q5MIN PRN IV MODERATE PAIN Last administered on 09/30/16 16:19; Start 09/30/16 at 07:00; Stop 10/01/16 at 06: 59; Status DC Morphine Sulfate 1 mg PRN Q10MIN PRN IV SEVERE PAIN; Start 09/30/16 at 07:00; Stop 10/01/16 at 06:59; Status DC Ringer's Solution 1,000 ml @ 0 mls/hr Q0M IV ; Start 09/30/16 at 07:00; Stop 09/30/16 at 18:59; Status DC Lidocaine HCl 2 ml PRN 1X PRN ID PRIOR TO IV START; Start 09/30/16 at 07:00; Stop 10/01/16 at 06:59; Status DC Hydromorphone HCl (Dilaudid) 0.5 mg PRN Q10MIN PRN IV SEV PAIN, Second choice; Start 09/30/16 at 07:00; Stop 10/01/16 at 06:59; Status DC Prochlorperazine Edisylate (Compazine) 5 mg PACU PRN PRN IV NAUSEA, MRX1; Start 09/30/16 at 07:00; Stop 10/01/16 at 06:59; Status DC Lidocaine HCl 48 ml/Sodium Bicarbonate 12 meq/Miscellaneous 60 ml @ 60 mls/hr 1X PERIOP ONCE ID Last administered on 09/30/16 14:54; Start 09/30/16 at 06:00 ; Stop 09/30/16 at 06:59; Status DC Cefazolin Sodium/ Dextrose 50 ml @ 100 mls/hr 1X PREOP IV Last administered on 09/30/16 17:02; Start 09/30/16 at 11:45; Stop 10/01/16 at 18:00; Status DC Midazolam HCl (Versed) 2 mg STK-MED ONCE .ROUTE ; Start 09/30/16 at 11:45; Stop 09/30/16 at 11:46; Status DC Fentanyl Citrate (Fentanyl 2ml Vial) 100 mcg STK-MED ONCE .ROUTE ; Start at 11:45; Stop 09/30/16 at 11:46; Status DC Propofol 20 ml @ As Directed STK-MED ONCE IV ; Start 09/30/16 at 11:46; Stop 09/30 at 11:47; Status DC Dexamethasone Sodium Phosphate (Decadron) 20 mg STK-MED ONCE .ROUTE ; Start 09/30 at 11:46; Stop 09/30/16 at 11:47; Status DC Ondansetron HCl (Zofran) 4 mg STK-MED ONCE .ROUTE ; Start 09/30/16 at 11:46; Stop 09/30/16 at 11:47; Status DC Lidocaine HCl (Lidocaine Pf 2% Vial) 5 ml STK-MED ONCE .ROUTE ; Start 09/30/16 at 11:46; Stop 09/30/16 at 11:47; Status DC Silver Sulfadiazine (Silvadene) 25 mragie STK-MED ONCE TP ; Start 09/30/16 at 13:37 ; Stop 09/30/16 at 13:38; Status DC Dextrose (Dextrose 50%-Water Syringe) 12.5 gm 1X ONCE IV Last administered on 09/30/16 14:07; Start 09/30/16 at 14:00; Stop 09/30/16 at 14:02; Status DC Bacitracin 14 margie STK-MED ONCE TP Last administered on 09/30/16 15:29; Start at 15:06; Stop 09/30/16 at 15:07; Status DC Albuterol Sulfate (Ventolin Neb Soln) 2.5 mg STK-MED ONCE .ROUTE ; Start at 16:05; Stop 09/30/16 at 16:06; Status DC Albuterol Sulfate (Ventolin Neb Soln) 2.5 mg 1X ONCE NEB Last administered on 09/30/16 16:24; Start 09/30/16 at 16:30; Stop 09/30/16 at 16:31; Status DC Albuterol/ Ipratropium (Duoneb) 3 ml RTQID NEB Last administered on 10/06/16 07:16; Start 09/30/16 at 20:00 Hydralazine HCl (Apresoline) 10 mg PRN Q4HRS PRN IVP for SBP > 170 Last administered on 10/04/16 08:20; Start 09/30/16 at 17:30 Acetaminophen/ Hydrocodone Bitart (Lortab 5/325) 1 tab PRN Q6HRS PRN PO moderate - severe pain Last administered on 10/06/16 08:38; Start 10/01/16 at 14 :45 Morphine Sulfate 2 mg PRN Q2HR PRN IV PAIN Last administered on 10/03/16 23:53 ; Start 10/01/16 at 14:45 Amlodipine Besylate (Norvasc) 5 mg DAILY PO Last administered on 10/03/16 08: 49; Start 10/01/16 at 15:00; Stop 10/03/16 at 12:37; Status DC Furosemide (Lasix) 40 mg 1X ONCE IVP Last administered on 10/01/16 17:04; Start 10/01/16 at 15:15; Stop 10/01/16 at 15:16; Status DC Albuterol/ Ipratropium (Duoneb) 3 ml 1X ONCE NEB Last administered on 00:27; Start 10/03/16 at 00:30; Stop 10/03/16 at 00:31; Status DC Amlodipine Besylate (Norvasc) 10 mg DAILY PO Last administered on 10/06/16 08: 37; Start 10/04/16 at 09:00 Amlodipine Besylate (Norvasc) 5 mg 1X ONCE PO Last administered on 10/03/16 13:00; Start 10/03/16 at 13:00; Stop 10/03/16 at 13:01; Status DC Albuterol/ Ipratropium (Duoneb) 3 ml 1X ONCE NEB Last administered on 02:59; Start 10/04/16 at 03:00; Stop 10/04/16 at 03:01; Status DC Enoxaparin Sodium (Lovenox 100mg Syringe) 100 mg Q12HR SQ Last administered on 10/05/16 08:17; Start 10/04/16 at 09:00; Stop 10/05/16 at 14:46; Status DC Info (Anti-Coagulation Monitoring By Pharmacy) 1 each PRN DAILY PRN MC SEE COMMENTS; Start 10/04/16 at 08:45 Furosemide (Lasix) 80 mg 1X ONCE IVP Last administered on 10/04/16 10:21; Start 10/04/16 at 10:15; Stop 10/05/16 at 10:03; Status DC Hydralazine HCl (Apresoline) 50 mg BID PO Last administered on 10/06/16 08:38 ; Start 10/04/16 at 15:30 Furosemide (Lasix) 80 mg 1X ONCE IVP Last administered on 10/04/16 16:04; Start 10/04/16 at 16:00; Stop 10/05/16 at 10:03; Status DC Albuterol/ Ipratropium (Duoneb) 3 ml 1X ONCE NEB Last administered on 01:09; Start 10/05/16 at 01:00; Stop 10/05/16 at 01:01; Status DC Albuterol/ Ipratropium (Duoneb) 3 ml 1X ONCE NEB Last administered on 05:00; Start 10/05/16 at 05:00; Stop 10/05/16 at 05:01; Status DC Furosemide (Lasix) 40 mg [id number] IVP Last administered on 10/06/16 08:39; Start 10/05/16 at 14:00 Enoxaparin Sodium (Lovenox 100mg Syringe) 40 mg DAILY SQ Last administered on 08:36; Start 10/06/16 at 09:00 Albuterol/ Ipratropium (Duoneb) 3 ml 1X ONCE NEB Last administered on 23:52; Start 10/05/16 at 23:45; Stop 10/05/16 at 23:46; Status DC Albuterol/ Ipratropium (Duoneb) 3 ml 1X ONCE NEB Last administered on 05:21; Start 10/06/16 at 05:30; Stop 10/06/16 at 05:31; Status DC Active Scripts Active Levofloxacin 750 Mg Tablet 1 Tab PO DAILY Levemir Flextouch (Insulin Detemir) 100 Unit/1 Ml Insuln.pen 20 Units SQ QHS 30 Days Novolog Flexpen (Insulin Aspart) 100 Unit/1 Ml Insuln.pen 10 Units SQ TIDAC 30 Days Reported Percocet 5-325 Mg Tablet (Oxycodone/Acetaminophen) 1 Each Tablet 1 Tab PO PRN Q6HRS PRN Advair 100-50 Diskus (Fluticasone/Salmeterol) 1 Each Disk.w.dev 1 Puff IH BID Spiriva Respimat (Tiotropium [place]) 4 Gm Mist.inhal 2.5 Gm IH DAILY Symbicort 160-4.5 Mcg Inhaler (Budesonide/Formoterol Fumarate) 10.2 Gm Hfa.aer.ad 2 Puff IH BID Atorvastatin Calcium 20 Mg Tablet 20 Mg PO HS Lisinopril-Hctz 10-12.5 Mg Tab (Lisinopril/Hydrochlorothiazide) 1 Each Tablet 1 Tab PO DAILY Isosorbide Mononitrate Er (Isosorbide Mononitrate) 120 Mg Tab.er.24h 120 Mg PO DAILY Novolin N (Nph, Human Insulin Isophane) 100 Unit/1 Ml Vial 0 SQ Promethazine-Codeine Syrup (Promethazine Hcl/Codeine) 118 Ml Syrup 5 Ml PO Q4- 6HRS Diltiazem 24HR Cd (Diltiazem Hcl) 240 Mg Cap.er.24h 240 Mg PO DAILY NITROGLYCERIN SubLingual (Nitroglycerin) 0.4 Mg Tab.subl 0.4 Mg SL PRN Q5MIN PRN Atorvastatin Calcium 40 Mg Tablet 40 Mg PO HS Vitals/I & O Vital Sign - Last 24 Hours 10/05/16 10/05/16 10/05/16 10/05/16 12:34 15:00 16:16 19:50 Temp 98.5 99.1 98.5 99.1 Pulse 84 88 Resp 20 20 B/P (MAP) 142/70 (94) 139/80 (99) Pulse Ox 96 97 O2 Delivery Nasal Cannula Nasal Cannula Nasal Cannula Nasal Cannula O2 Flow Rate 2.0 2.0 2.0 2.0 10/05/16 10/05/16 10/05/16 10/05/16 20:18 20:20 20:30 21:09 Pulse 88 B/P (MAP) 139/80 Pulse Ox 94 94 O2 Delivery Nasal Cannula Nasal Cannula Nasal Cannula O2 Flow Rate 2.0 2.0 2.0 10/05/16 10/05/16 10/05/16 10/06/16 21:10 23:24 23:52 03:00 Temp 97.7 98.1 97.7 98.1 Pulse 83 84 Resp 22 20 20 B/P (MAP) 137/74 (95) 153/77 (102) Pulse Ox 98 93 99 96 O2 Delivery Nasal Cannula Room Air Nasal Cannula Nasal Cannula O2 Flow Rate 2.0 2.0 2.0 10/06/16 10/06/16 10/06/16 10/06/16 05:21 07:00 07:16 08:00 Temp 98.4 98.4 Pulse 92 Resp 20 B/P (MAP) 158/81 (106) Pulse Ox 98 99 97 O2 Delivery Nasal Cannula Room Air Nasal Cannula Nasal Cannula O2 Flow Rate 2.0 2.0 2.0 10/06/16 10/06/16 10/06/16 10/06/16 08:36 08:37 08:37 08:38 Pulse 94 94 94 Resp 18 B/P (MAP) 158/81 158/81 158/81 Pulse Ox 97 O2 Delivery Nasal Cannula O2 Flow Rate 2.0 10/06/16 10/06/16 10/06/16 08:38 09:38 11:00 Temp 98.1 98.1 Pulse 92 100 Resp 20 20 B/P (MAP) 158/81 147/74 (98) Pulse Ox 97 90 O2 Delivery Nasal Cannula Room Air O2 Flow Rate 2.0 Intake and Output 10/05/16 10/05/16 10/06/16 14:59 22:59 06:59 Intake Total 240 ml 500 ml Output Total 350 ml 400 ml 500 ml Balance -350 ml -160 ml 0 ml BALA BRYANT MD Oct 06, 2016 11:16
--- NOTE | 2016-10-06 11:17 | PDOC ---
Renal-Progress Notes Subjective Notes Notes LESS SOB History of Present Illness Hx of present illness BETTER Vitals Vitals Vital Signs Date Time Temp Pulse Resp B/P (MAP) Pulse Ox O2 Delivery O2 Flow Rate FiO2 10/06/16 11:00 98.1 100 20 147/74 (98) 90 Room Air 98.1 10/06/16 09:38 2.0 Weight Weight [ ] I.O. Intake and Output Intake and Output 10/06/16 07:00 Intake Total 740 ml Output Total 1250 ml Balance -510 ml Intake Oral 740 ml Output Urine Total 1250 ml # Bowel Movements 1 Labs Labs Laboratory Tests Test 10/05/16 12:41 10/05/16 16:43 10/05/16 19:54 10/06/16 03:55 Glucose (Fingerstick) 141 mg/dL (70-99) 174 mg/dL (70-99) 142 mg/dL (70-99) White Blood Count 9.0 x10^3/uL (4.0-11.0) Red Blood Count 3.13 x10^6/uL (4.30-5.70) Hemoglobin 8.9 g/dL (13.0-17.5) Hematocrit 26.8 % (39.0-53.0) Mean Corpuscular Volume 85 fL (79-100) Mean Corpuscular Hemoglobin 28 pg (25-35) Mean Corpuscular Hemoglobin Concent 33 g/dL (31-37) Red Cell Distribution Width 16.5 % (11.5-14.5) Platelet Count 337 x10^3/uL (140-400) Neutrophils (%) (Auto) 73 % (31-73) Lymphocytes (%) (Auto) 14 % (24-48) Monocytes (%) (Auto) 10 % (0-9) Eosinophils (%) (Auto) 2 % (0-3) Basophils (%) (Auto) 1 % (0-3) Neutrophils # (Auto) 6.6 x10^3uL (1.8-7.7) Lymphocytes # (Auto) 1.3 x10^3/uL (1.0-4.8) Monocytes # (Auto) 0.9 x10^3/uL (0.0-1.1) Eosinophils # (Auto) 0.2 x10^3/uL (0.0-0.7) Basophils # (Auto) 0.1 x10^3/uL (0.0-0.2) Sodium Level 139 mmol/L (136-145) Potassium Level 4.3 mmol/L (3.5-5.1) Chloride Level 101 mmol/L (98-107) Carbon Dioxide Level 33 mmol/L (21-32) Anion Gap 5 (6-14) Blood Urea Nitrogen 47 mg/dL (8-26) Creatinine 2.1 mg/dL (0.7-1.3) Estimated GFR (Cockcroft-Gault) 37.5 Glucose Level 101 mg/dL (70-99) Calcium Level 8.6 mg/dL (8.5-10.1) Magnesium Level 2.3 mg/dL (1.8-2.4) Test 10/06/16 07:52 Glucose (Fingerstick) 89 mg/dL (70-99) Micro Micro Microbiology 09/22/16 Blood Culture - Final, Complete NO GROWTH AFTER 5 DAYS 09/30/16 Anaerobic/Aerobic Culture - Final, Complete 09/30/16 Anaerobic Culture Result 1 (MARÍA) - Final, Complete 09/30/16 Aerobic Culture - Final, Complete 09/30/16 Aerobic Culture Result 1 (MARÍA) - Final, Complete Review of Systems Constitutional: yes: no symptom reported Physical Exam General Appearance: no apparent distress Skin: warm Respiratory: decreased breath sounds Heart: S1S2 Abdomen: bowel sounds present Genitourinary: bladder flat Neurology: other (SOMNOLENT) Musculoskeletal: Osteoarthritis Assessment Assessment IMP HYPERVOLEMIA WITH PROB CHF ? PULMONARY INFILTRATES AND PNA AECOPD RESP ACIDOSIS BASIM BETTER WITH CR 2.8 TO 2.1 CKD STAGE 3 WITH CR OF 1.5-2.0 PAD-S/P R POP-DP BYPASS AND TOE AMP PLAN CONT IV LASIX FOR NOW PULMONARY EVAL AND TX CARDIOLOGY EVAL AND TX ERIKA IBARRA MD Oct 06, 2016 11:17
--- NOTE | 2016-10-06 12:18 | PDOC ---
PULMONARY PROGRESS NOTES Subjective feels better Vitals Vital Signs Date Time Temp Pulse Resp B/P (MAP) Pulse Ox O2 Delivery O2 Flow Rate FiO2 10/06/16 11:30 Nasal Cannula 2.0 10/06/16 11:00 98.1 100 20 147/74 (98) 90 98.1 ROS: No Nausea, No Chest Pain, No Abdominal Pain, No Increase Cough General: Alert, No acute distress HEENT: Other Lungs: Other (bl decreased bs) Cardiovascular: S1, S2 Abdomen: Soft, Non-tender, Other Neuro Exam: Alert Extremities: Other (edema) Skin: Warm Labs Laboratory Tests Test 10/04/16 16:59 10/04/16 20:48 10/05/16 05:44 10/05/16 07:34 Glucose (Fingerstick) 146 mg/dL (70-99) 138 mg/dL (70-99) 80 mg/dL (70-99) Sodium Level 139 mmol/L (136-145) Potassium Level 4.3 mmol/L (3.5-5.1) Chloride Level 102 mmol/L (98-107) Carbon Dioxide Level 31 mmol/L (21-32) Anion Gap 6 (6-14) Blood Urea Nitrogen 44 mg/dL (8-26) Creatinine 1.8 mg/dL (0.7-1.3) Estimated GFR (Cockcroft-Gault) 44.9 Glucose Level 108 mg/dL (70-99) Calcium Level 8.5 mg/dL (8.5-10.1) Magnesium Level 2.3 mg/dL (1.8-2.4) Test 10/05/16 12:41 10/05/16 16:43 10/05/16 19:54 10/06/16 03:55 Glucose (Fingerstick) 141 mg/dL (70-99) 174 mg/dL (70-99) 142 mg/dL (70-99) White Blood Count 9.0 x10^3/uL (4.0-11.0) Red Blood Count 3.13 x10^6/uL (4.30-5.70) Hemoglobin 8.9 g/dL (13.0-17.5) Hematocrit 26.8 % (39.0-53.0) Mean Corpuscular Volume 85 fL (79-100) Mean Corpuscular Hemoglobin 28 pg (25-35) Mean Corpuscular Hemoglobin Concent 33 g/dL (31-37) Red Cell Distribution Width 16.5 % (11.5-14.5) Platelet Count 337 x10^3/uL (140-400) Neutrophils (%) (Auto) 73 % (31-73) Lymphocytes (%) (Auto) 14 % (24-48) Monocytes (%) (Auto) 10 % (0-9) Eosinophils (%) (Auto) 2 % (0-3) Basophils (%) (Auto) 1 % (0-3) Neutrophils # (Auto) 6.6 x10^3uL (1.8-7.7) Lymphocytes # (Auto) 1.3 x10^3/uL (1.0-4.8) Monocytes # (Auto) 0.9 x10^3/uL (0.0-1.1) Eosinophils # (Auto) 0.2 x10^3/uL (0.0-0.7) Basophils # (Auto) 0.1 x10^3/uL (0.0-0.2) Sodium Level 139 mmol/L (136-145) Potassium Level 4.3 mmol/L (3.5-5.1) Chloride Level 101 mmol/L (98-107) Carbon Dioxide Level 33 mmol/L (21-32) Anion Gap 5 (6-14) Blood Urea Nitrogen 47 mg/dL (8-26) Creatinine 2.1 mg/dL (0.7-1.3) Estimated GFR (Cockcroft-Gault) 37.5 Glucose Level 101 mg/dL (70-99) Calcium Level 8.6 mg/dL (8.5-10.1) Magnesium Level 2.3 mg/dL (1.8-2.4) Test 10/06/16 07:52 10/06/16 11:46 Glucose (Fingerstick) 89 mg/dL (70-99) 196 mg/dL (70-99) Laboratory Tests Test 10/05/16 12:41 10/05/16 16:43 10/05/16 19:54 10/06/16 03:55 Glucose (Fingerstick) 141 mg/dL (70-99) 174 mg/dL (70-99) 142 mg/dL (70-99) White Blood Count 9.0 x10^3/uL (4.0-11.0) Red Blood Count 3.13 x10^6/uL (4.30-5.70) Hemoglobin 8.9 g/dL (13.0-17.5) Hematocrit 26.8 % (39.0-53.0) Mean Corpuscular Volume 85 fL (79-100) Mean Corpuscular Hemoglobin 28 pg (25-35) Mean Corpuscular Hemoglobin Concent 33 g/dL (31-37) Red Cell Distribution Width 16.5 % (11.5-14.5) Platelet Count 337 x10^3/uL (140-400) Neutrophils (%) (Auto) 73 % (31-73) Lymphocytes (%) (Auto) 14 % (24-48) Monocytes (%) (Auto) 10 % (0-9) Eosinophils (%) (Auto) 2 % (0-3) Basophils (%) (Auto) 1 % (0-3) Neutrophils # (Auto) 6.6 x10^3uL (1.8-7.7) Lymphocytes # (Auto) 1.3 x10^3/uL (1.0-4.8) Monocytes # (Auto) 0.9 x10^3/uL (0.0-1.1) Eosinophils # (Auto) 0.2 x10^3/uL (0.0-0.7) Basophils # (Auto) 0.1 x10^3/uL (0.0-0.2) Sodium Level 139 mmol/L (136-145) Potassium Level 4.3 mmol/L (3.5-5.1) Chloride Level 101 mmol/L (98-107) Carbon Dioxide Level 33 mmol/L (21-32) Anion Gap 5 (6-14) Blood Urea Nitrogen 47 mg/dL (8-26) Creatinine 2.1 mg/dL (0.7-1.3) Estimated GFR (Cockcroft-Gault) 37.5 Glucose Level 101 mg/dL (70-99) Calcium Level 8.6 mg/dL (8.5-10.1) Magnesium Level 2.3 mg/dL (1.8-2.4) Test 10/06/16 07:52 10/06/16 11:46 Glucose (Fingerstick) 89 mg/dL (70-99) 196 mg/dL (70-99) Medications Active Scripts Medications Dose Route/Sig Max Daily Dose Days Date Category Levofloxacin 750 Mg Tablet 1 Tab PO DAILY 09/21/16 Rx Percocet 5-325 Mg Tablet (Oxycodone/Acetaminophen) 1 Each Tablet 1 Tab PO PRN Q6HRS PRN 07/30/16 Reported Advair 100-50 Diskus (Fluticasone/Salmeterol) 1 Each Disk.w.dev 1 Puff IH BID 06/21/16 Reported Spiriva Respimat (Tiotropium [place]) 4 Gm Mist.inhal 2.5 Gm IH DAILY 06/21/16 Reported Symbicort 160-4.5 Mcg Inhaler (Budesonide/Formoterol Fumarate) 10.2 Gm Hfa.aer.ad 2 Puff IH BID 06/21/16 Reported Atorvastatin Calcium 20 Mg Tablet 20 Mg PO HS 06/21/16 Reported Lisinopril-Hctz 10-12.5 Mg Tab (Lisinopril/Hydrochlorothiazide) 1 Each Tablet 1 Tab PO DAILY 06/21/16 Reported Isosorbide Mononitrate Er (Isosorbide Mononitrate) 120 Mg Tab.er.24h 120 Mg PO DAILY 06/21/16 Reported Levemir Flextouch (Insulin Detemir) 100 Unit/1 Ml Insuln.pen 20 Units SQ QHS 30 11/24/15 Rx Novolog Flexpen (Insulin Aspart) 100 Unit/1 Ml Insuln.pen 10 Units SQ TIDAC 30 11/24/15 Rx Novolin N (Nph, Human Insulin Isophane) 100 Unit/1 Ml Vial 0 SQ 11/18/15 Reported Promethazine-Codeine Syrup (Promethazine Hcl/Codeine) 118 Ml Syrup 5 Ml PO Q4-6HRS 11/18/15 Reported Diltiazem 24HR Cd (Diltiazem Hcl) 240 Mg Cap.er.24h 240 Mg PO DAILY 11/18/15 Reported NITROGLYCERIN SubLingual (Nitroglycerin) 0.4 Mg Tab.subl 0.4 Mg SL PRN Q5MIN PRN 11/18/15 Reported Atorvastatin Calcium 40 Mg Tablet 40 Mg PO HS 11/18/15 Reported Comments cxr reviewed. Impression . 1. Acute/Chronic resp failure multifactorial/COPD 2. Acute encephalopathy improved 3. History of extensive pulmonary embolism, resulting in shock in June. Status post treatment with anticoagulation Xarelto with last CT angiogram done on 2016 has shown resolution of pulmonary embolism.He is s/p IVC filter. 4. History of IVC filter placement in June. 5. 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 6. Abnormal CXR with mild CHF 7. renal failure, 8. Anemia 9. PVD Plan . 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
--- NOTE | 2016-10-06 13:38 | RAD ---
Portable chest, 10/06/2016: History: Shortness of breath Comparison is made to a study from 10/04/2016. The patient is rotated to the right. A right jugular central venous catheter extends into the superior aspect of the right atrium. Again noted is a probable mild kink in the catheter near its hub. The heart is enlarged. The pulmonary vascularity is prominent. There are moderate bibasilar opacities compatible with pleural fluid and underlying atelectasis/infiltrate. Similar findings were present on the previous study. There is no evidence of pneumothorax. No new abnormality is seen. IMPRESSION: Ongoing moderate sized bilateral pleural effusions and underlying atelectasis/infiltrate, likely due to congestive heart failure. A component of pneumonia cannot be excluded.
[2016-10-06 15:00] VITALS: BP 126/61
[2016-10-06] MEDS ORDERED: ALBUTEROL SULFATE 2.5 MG/3 ML NEBU. NEB PRN (17:30)
[2016-10-06 19:10] VITALS: BP 153/75
[2016-10-06] MEDS: traMADol 50 MG TABLET PO PRN (21:53)
[2016-10-06] MEDS: ATORVASTATIN CALCIUM 40 MG TABLET. PO SCH (21:53)
[2016-10-06] MEDS: INSULIN DETEMIR 300 UNITS/3 ML INSULN.PEN. SQ SCH (21:56)
[2016-10-06 23:10] VITALS: BP 146/80
[2016-10-07 03:10] VITALS: BP 164/82
[2016-10-07 04:57] LABS: CALCIUM 8.5 mg/dL (8.5-10.1); GFR 39.7; MAGNESIUM 2.3 mg/dL (1.8-2.4); POTASSIUM 4.1 mmol/L (3.5-5.1)
[2016-10-07 07:00] VITALS: BP 169/86
[2016-10-07] MEDS: INSULIN ASPART 300 UNITS/3 ML INSULN.PEN SQ SCH ×3 (08:00→17:00)
[2016-10-07] MEDS: IPRATRPIUM/ALBUTEROL 0.5/2.5MG 3 ML NEBU. NEB SCH ×3 (08:52→16:35)
[2016-10-07] MEDS: BUDESONIDE 0.5 MG/2 ML NEBU. NEB SCH (08:52)
[2016-10-07] MEDS ORDERED: ENOXAPARIN 40 MG/0.4 ML SYRINGE. SQ SCH (09:00)
[2016-10-07] MEDS: BENZONATATE 100 MG CAPSULE. PO SCH ×2 (09:34→14:00)
[2016-10-07] MEDS: CLOPIDOGREL BISULFATE 75 MG TABLET PO SCH (09:34)
[2016-10-07] MEDS: traMADol 50 MG TABLET PO PRN (09:35)
[2016-10-07] MEDS: amLODIPine BESYLATE 10 MG TABLET PO SCH (09:36)
[2016-10-07] MEDS: ISOSORBIDE MONONITRATE ER 30 MG TAB.ER.24H PO SCH (09:37)
[2016-10-07] MEDS: FUROSEMIDE 40 MG/4 ML VIAL. IVP SCH (09:38)
--- NOTE | 2016-10-07 10:16 | PDOC ---
PULMONARY PROGRESS NOTES Subjective feels better Vitals Vital Signs Date Time Temp Pulse Resp B/P (MAP) Pulse Ox O2 Delivery O2 Flow Rate FiO2 10/07/16 09:37 83 169/86 10/07/16 09:35 19 98 Room Air 2.0 10/07/16 07:00 97.9 97.9 ROS: No Nausea, No Chest Pain, No Abdominal Pain, No Increase Cough General: Alert, No acute distress HEENT: Other Lungs: Other (bl decreased bs) Cardiovascular: S1, S2 Abdomen: Soft, Non-tender, Other Neuro Exam: Alert Extremities: Other (edema) Skin: Warm Labs Laboratory Tests Test 10/05/16 12:41 10/05/16 16:43 10/05/16 19:54 10/06/16 03:55 Glucose (Fingerstick) 141 mg/dL (70-99) 174 mg/dL (70-99) 142 mg/dL (70-99) White Blood Count 9.0 x10^3/uL (4.0-11.0) Red Blood Count 3.13 x10^6/uL (4.30-5.70) Hemoglobin 8.9 g/dL (13.0-17.5) Hematocrit 26.8 % (39.0-53.0) Mean Corpuscular Volume 85 fL (79-100) Mean Corpuscular Hemoglobin 28 pg (25-35) Mean Corpuscular Hemoglobin Concent 33 g/dL (31-37) Red Cell Distribution Width 16.5 % (11.5-14.5) Platelet Count 337 x10^3/uL (140-400) Neutrophils (%) (Auto) 73 % (31-73) Lymphocytes (%) (Auto) 14 % (24-48) Monocytes (%) (Auto) 10 % (0-9) Eosinophils (%) (Auto) 2 % (0-3) Basophils (%) (Auto) 1 % (0-3) Neutrophils # (Auto) 6.6 x10^3uL (1.8-7.7) Lymphocytes # (Auto) 1.3 x10^3/uL (1.0-4.8) Monocytes # (Auto) 0.9 x10^3/uL (0.0-1.1) Eosinophils # (Auto) 0.2 x10^3/uL (0.0-0.7) Basophils # (Auto) 0.1 x10^3/uL (0.0-0.2) Sodium Level 139 mmol/L (136-145) Potassium Level 4.3 mmol/L (3.5-5.1) Chloride Level 101 mmol/L (98-107) Carbon Dioxide Level 33 mmol/L (21-32) Anion Gap 5 (6-14) Blood Urea Nitrogen 47 mg/dL (8-26) Creatinine 2.1 mg/dL (0.7-1.3) Estimated GFR (Cockcroft-Gault) 37.5 Glucose Level 101 mg/dL (70-99) Calcium Level 8.6 mg/dL (8.5-10.1) Magnesium Level 2.3 mg/dL (1.8-2.4) Test 10/06/16 07:52 10/06/16 11:46 10/06/16 17:26 10/06/16 20:44 Glucose (Fingerstick) 89 mg/dL (70-99) 196 mg/dL (70-99) 141 mg/dL (70-99) 216 mg/dL (70-99) Test 10/07/16 04:30 10/07/16 08:07 Sodium Level 139 mmol/L (136-145) Potassium Level 4.1 mmol/L (3.5-5.1) Chloride Level 101 mmol/L (98-107) Carbon Dioxide Level 33 mmol/L (21-32) Anion Gap 5 (6-14) Blood Urea Nitrogen 48 mg/dL (8-26) Creatinine 2.0 mg/dL (0.7-1.3) Estimated GFR (Cockcroft-Gault) 39.7 Glucose Level 110 mg/dL (70-99) Calcium Level 8.5 mg/dL (8.5-10.1) Magnesium Level 2.3 mg/dL (1.8-2.4) Glucose (Fingerstick) 95 mg/dL (70-99) Laboratory Tests Test 10/06/16 11:46 10/06/16 17:26 10/06/16 20:44 10/07/16 04:30 Glucose (Fingerstick) 196 mg/dL (70-99) 141 mg/dL (70-99) 216 mg/dL (70-99) Sodium Level 139 mmol/L (136-145) Potassium Level 4.1 mmol/L (3.5-5.1) Chloride Level 101 mmol/L (98-107) Carbon Dioxide Level 33 mmol/L (21-32) Anion Gap 5 (6-14) Blood Urea Nitrogen 48 mg/dL (8-26) Creatinine 2.0 mg/dL (0.7-1.3) Estimated GFR (Cockcroft-Gault) 39.7 Glucose Level 110 mg/dL (70-99) Calcium Level 8.5 mg/dL (8.5-10.1) Magnesium Level 2.3 mg/dL (1.8-2.4) Test 10/07/16 08:07 Glucose (Fingerstick) 95 mg/dL (70-99) Medications Active Scripts Medications Dose Route/Sig Max Daily Dose Days Date Category Levofloxacin 750 Mg Tablet 1 Tab PO DAILY 09/21/16 Rx Percocet 5-325 Mg Tablet (Oxycodone/Acetaminophen) 1 Each Tablet 1 Tab PO PRN Q6HRS PRN 07/30/16 Reported Advair 100-50 Diskus (Fluticasone/Salmeterol) 1 Each Disk.w.dev 1 Puff IH BID 06/21/16 Reported Spiriva Respimat (Tiotropium [place]) 4 Gm Mist.inhal 2.5 Gm IH DAILY 06/21/16 Reported Symbicort 160-4.5 Mcg Inhaler (Budesonide/Formoterol Fumarate) 10.2 Gm Hfa.aer.ad 2 Puff IH BID 06/21/16 Reported Atorvastatin Calcium 20 Mg Tablet 20 Mg PO HS 06/21/16 Reported Lisinopril-Hctz 10-12.5 Mg Tab (Lisinopril/Hydrochlorothiazide) 1 Each Tablet 1 Tab PO DAILY 06/21/16 Reported Isosorbide Mononitrate Er (Isosorbide Mononitrate) 120 Mg Tab.er.24h 120 Mg PO DAILY 06/21/16 Reported Levemir Flextouch (Insulin Detemir) 100 Unit/1 Ml Insuln.pen 20 Units SQ QHS 30 11/24/15 Rx Novolog Flexpen (Insulin Aspart) 100 Unit/1 Ml Insuln.pen 10 Units SQ TIDAC 30 11/24/15 Rx Novolin N (Nph, Human Insulin Isophane) 100 Unit/1 Ml Vial 0 SQ 11/18/15 Reported Promethazine-Codeine Syrup (Promethazine Hcl/Codeine) 118 Ml Syrup 5 Ml PO Q4-6HRS 11/18/15 Reported Diltiazem 24HR Cd (Diltiazem Hcl) 240 Mg Cap.er.24h 240 Mg PO DAILY 11/18/15 Reported NITROGLYCERIN SubLingual (Nitroglycerin) 0.4 Mg Tab.subl 0.4 Mg SL PRN Q5MIN PRN 11/18/15 Reported Atorvastatin Calcium 40 Mg Tablet 40 Mg PO HS 11/18/15 Reported Comments cxr reviewed. Impression . 1. Acute/Chronic resp failure multifactorial/COPD 2. Acute encephalopathy improved 3. History of extensive pulmonary embolism, resulting in shock in June. Status post treatment with anticoagulation Xarelto with last CT angiogram done on 2016 has shown resolution of pulmonary embolism.He is s/p IVC filter. 4. History of IVC filter placement in June. 5. 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 6. Abnormal CXR with PERSISTENT CHF 7. renal failure, 8. Anemia 9. PVD Plan . NEGATIVE V/Q SCAN NO DVT OFF FULL DOSE ANTICOAGULATION NOT THE BEST CANDIDATE FOR SNF AC/ NO NEED FOR IT AT PRESENT WILL CONTINUE BD DIURESIS LASIX PER NEPHRO AWAITING PLACEMENT IVANA COX MD Oct 07, 2016 10:16
[2016-10-07 11:23] VITALS: BP 118/58
--- NOTE | 2016-10-07 11:40 | PDOC ---
Renal-Progress Notes Subjective Notes Notes NONE History of Present Illness Hx of present illness STABLE Vitals Vitals Vital Signs Date Time Temp Pulse Resp B/P (MAP) Pulse Ox O2 Delivery O2 Flow Rate FiO2 10/07/16 11:23 98.4 84 20 118/58 (78) 96 Nasal Cannula 2.0 98.4 Weight Weight [ ] I.O. Intake and Output Intake and Output 10/07/16 07:00 Intake Total 675 ml Output Total 2250 ml Balance -1575 ml Intake Oral 675 ml Output Urine Total 2250 ml Labs Labs Laboratory Tests Test 10/06/16 11:46 10/06/16 17:26 10/06/16 20:44 10/07/16 04:30 Glucose (Fingerstick) 196 mg/dL (70-99) 141 mg/dL (70-99) 216 mg/dL (70-99) Sodium Level 139 mmol/L (136-145) Potassium Level 4.1 mmol/L (3.5-5.1) Chloride Level 101 mmol/L (98-107) Carbon Dioxide Level 33 mmol/L (21-32) Anion Gap 5 (6-14) Blood Urea Nitrogen 48 mg/dL (8-26) Creatinine 2.0 mg/dL (0.7-1.3) Estimated GFR (Cockcroft-Gault) 39.7 Glucose Level 110 mg/dL (70-99) Calcium Level 8.5 mg/dL (8.5-10.1) Magnesium Level 2.3 mg/dL (1.8-2.4) Test 10/07/16 08:07 Glucose (Fingerstick) 95 mg/dL (70-99) Micro Micro Microbiology 09/22/16 Blood Culture - Final, Complete NO GROWTH AFTER 5 DAYS 09/30/16 Anaerobic/Aerobic Culture - Final, Complete 09/30/16 Anaerobic Culture Result 1 (MARÍA) - Final, Complete 09/30/16 Aerobic Culture - Final, Complete 09/30/16 Aerobic Culture Result 1 (MARÍA) - Final, Complete Review of Systems Constitutional: yes: no symptom reported Physical Exam General Appearance: no apparent distress Skin: warm Respiratory: decreased breath sounds Heart: S1S2 Abdomen: bowel sounds present Genitourinary: bladder flat Neurology: other (SOMNOLENT) Musculoskeletal: Osteoarthritis Assessment Assessment IMP HYPERVOLEMIA WITH PROB CHF ? PULMONARY INFILTRATES AND PNA AECOPD RESP ACIDOSIS BASIM BETTER WITH CR 2.8 TO 2.0 CKD STAGE 3 WITH CR OF 1.5-2.0 PAD-S/P R POP-DP BYPASS AND TOE AMP PLAN CHANGE LASIX TO PO PLACEMENT PENDING ERIKA IBARRA MD Oct 07, 2016 11:40
[2016-10-07] MEDS ORDERED: INSU100V13 SQ (12:54)
[2016-10-07] MEDS ORDERED: FURO-68 PO (12:54)
[2016-10-07] MEDS ORDERED: AMLO10TA4 PO (12:54)
[2016-10-07] MEDS ORDERED: CLOP75TA57 PO (12:54)
--- NOTE | 2016-10-07 12:59 | PDOC3 ---
Discharge Summary Visit Information Date of Admission: September 22, 2016 Date of Discharge: Oct 07, 2016 Admitting Diagnosis Comment: 1, Hypoglycemia with acute encephalopathy POA, resolved 2. 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 Mod PCM 4. High fall risk 5. CLaudication R>L 6. Gen weakness 7. Fall, non injury (10/06) 8/ sp R toe ampuitations 9. s./p fem pop bypass, R Old dx: 2. HX bilateral PE with cardiac arrest ([facility] 2016) sec to PE 3. CLean cardiac cath 4.Hx Non-occlusive thrombus, R leg (07/15) 5. COPD on home o2? exacerbation - wheezy 6. DM2; insulin requiring with HYPOGLYCEMIA 7. Hx Oliguric Hyperkalemic renal failure - stable 8 Dyslipidemia on statin 9. HX significant angioedema likely sec to ADAN inhib needing intubation (06/2016) Final Diagnosis Problems Medical Problems: (1) Hypoglycemia Status: Acute Brief Hospital Course Allergies Allergies Coded Allergies Type Severity Reaction Last Updated Verified lisinopril Allergy Severe Anaphylaxis 09/30/16 Yes Vital Signs Vital Signs Date Time Temp Pulse Resp B/P (MAP) Pulse Ox O2 Delivery O2 Flow Rate FiO2 10/07/16 12:17 Nasal Cannula 2.0 10/07/16 11:23 98.4 84 20 118/58 (78) 96 98.4 Lab Results Laboratory Tests Test 10/05/16 16:43 10/05/16 19:54 10/06/16 03:55 10/06/16 07:52 Glucose (Fingerstick) 174 mg/dL (70-99) 142 mg/dL (70-99) 89 mg/dL (70-99) White Blood Count 9.0 x10^3/uL (4.0-11.0) Red Blood Count 3.13 x10^6/uL (4.30-5.70) Hemoglobin 8.9 g/dL (13.0-17.5) Hematocrit 26.8 % (39.0-53.0) Mean Corpuscular Volume 85 fL (79-100) Mean Corpuscular Hemoglobin 28 pg (25-35) Mean Corpuscular Hemoglobin Concent 33 g/dL (31-37) Red Cell Distribution Width 16.5 % (11.5-14.5) Platelet Count 337 x10^3/uL (140-400) Neutrophils (%) (Auto) 73 % (31-73) Lymphocytes (%) (Auto) 14 % (24-48) Monocytes (%) (Auto) 10 % (0-9) Eosinophils (%) (Auto) 2 % (0-3) Basophils (%) (Auto) 1 % (0-3) Neutrophils # (Auto) 6.6 x10^3uL (1.8-7.7) Lymphocytes # (Auto) 1.3 x10^3/uL (1.0-4.8) Monocytes # (Auto) 0.9 x10^3/uL (0.0-1.1) Eosinophils # (Auto) 0.2 x10^3/uL (0.0-0.7) Basophils # (Auto) 0.1 x10^3/uL (0.0-0.2) Sodium Level 139 mmol/L (136-145) Potassium Level 4.3 mmol/L (3.5-5.1) Chloride Level 101 mmol/L (98-107) Carbon Dioxide Level 33 mmol/L (21-32) Anion Gap 5 (6-14) Blood Urea Nitrogen 47 mg/dL (8-26) Creatinine 2.1 mg/dL (0.7-1.3) Estimated GFR (Cockcroft-Gault) 37.5 Glucose Level 101 mg/dL (70-99) Calcium Level 8.6 mg/dL (8.5-10.1) Magnesium Level 2.3 mg/dL (1.8-2.4) Test 10/06/16 11:46 10/06/16 17:26 10/06/16 20:44 10/07/16 04:30 Glucose (Fingerstick) 196 mg/dL (70-99) 141 mg/dL (70-99) 216 mg/dL (70-99) Sodium Level 139 mmol/L (136-145) Potassium Level 4.1 mmol/L (3.5-5.1) Chloride Level 101 mmol/L (98-107) Carbon Dioxide Level 33 mmol/L (21-32) Anion Gap 5 (6-14) Blood Urea Nitrogen 48 mg/dL (8-26) Creatinine 2.0 mg/dL (0.7-1.3) Estimated GFR (Cockcroft-Gault) 39.7 Glucose Level 110 mg/dL (70-99) Calcium Level 8.5 mg/dL (8.5-10.1) Magnesium Level 2.3 mg/dL (1.8-2.4) Test 10/07/16 08:07 10/07/16 12:14 Glucose (Fingerstick) 95 mg/dL (70-99) 127 mg/dL (70-99) Laboratory Tests Test 10/06/16 17:26 10/06/16 20:44 10/07/16 04:30 10/07/16 08:07 Glucose (Fingerstick) 141 mg/dL (70-99) 216 mg/dL (70-99) 95 mg/dL (70-99) Sodium Level 139 mmol/L (136-145) Potassium Level 4.1 mmol/L (3.5-5.1) Chloride Level 101 mmol/L (98-107) Carbon Dioxide Level 33 mmol/L (21-32) Anion Gap 5 (6-14) Blood Urea Nitrogen 48 mg/dL (8-26) Creatinine 2.0 mg/dL (0.7-1.3) Estimated GFR (Cockcroft-Gault) 39.7 Glucose Level 110 mg/dL (70-99) Calcium Level 8.5 mg/dL (8.5-10.1) Magnesium Level 2.3 mg/dL (1.8-2.4) Test 10/07/16 12:14 Glucose (Fingerstick) 127 mg/dL (70-99) Brief Hospital Course Mr. Lloyd is a 76 old AA male, stayed 15 days with us, who presented with CHF, leg pains, Long course here bec of complicated medical hx including PE and DVT needing AC but bled everywhere from AC (last admit). This time, needed fem pop, but had some respi issues and CHF needing diuresis and elyte mx, cards and pulmo on board. Rpt VQ and US legs did not show new clots. Then had toe amputation for PVD or OM , Needs SNU but SNU days out and needs co pay $160 a day so will dc to current . Respi status may be tenuous, weak, high risk fall, DId have non injury fall here few days Prior to dc. Pt seen and examined Lots of RX written Dc time 35 mins Dw Rn and pt and SW Discharge Information Condition at Discharge: Improved, Stable Disposition/Orders: D/C to Home w/ HH Scheduled Atorvastatin Calcium (Atorvastatin Calcium), 40 MG PO HS, (Reported) Atorvastatin Calcium (Atorvastatin Calcium), 20 MG PO HS, (Reported) Budesonide/Formoterol Fumarate (Symbicort 160-4.5 Mcg Inhaler), 2 PUFF IH BID, ( Reported) Diltiazem Hcl (Diltiazem 24HR Cd), 240 MG PO DAILY, (Reported) Fluticasone/Salmeterol (Advair 100-50 Diskus), 1 PUFF IH BID, (Reported) Insulin Aspart (Novolog Flexpen), 10 UNITS SQ TIDAC Insulin Detemir (Levemir Flextouch), 20 UNITS SQ QHS Isosorbide Mononitrate (Isosorbide Mononitrate Er), 120 MG PO DAILY, (Reported) Levofloxacin (Levofloxacin), 1 TAB PO DAILY Lisinopril/Hydrochlorothiazide (Lisinopril-Hctz 10-12.5 Mg Tab), 1 TAB PO DAILY, (Reported) Promethazine Hcl/Codeine (Promethazine-Codeine Syrup), 5 ML PO Q4-6HRS, ( Reported) Tiotropium [place] (Spiriva Respimat), 2.5 GM IH DAILY, (Reported) Scheduled PRN Nitroglycerin (NITROGLYCERIN SubLingual), 0.4 MG SL PRN Q5MIN PRN for CHEST PAIN , (Reported) Oxycodone/Apap 5-325 (Percocet 5-325 Mg Tablet), 1 TAB PO PRN Q6HRS PRN for PAIN , (Reported) Miscellaneous Medications Nph, Human Insulin Isophane (Novolin N), 0 SQ, (Reported) BALA BRYANT MD Oct 07, 2016 12:59
[2016-10-07 15:00] VITALS: BP 122/58
[2016-10-07 16:21] LABS: INR 1.1 (0.8-1.1); PROTHROMBIN TIME PATIENT 13.6 SEC (11.7-14.0)
--- NOTE | 2016-10-07 17:29 | PDOC ---
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 Post-Procedure Diagnosis Post-Procedure Diagnosis Same Procedure Performed Procedure Performed Bedside removal rt IJ temp HDC Type of Anesthesia Type of Anesthesia None Estimated Blood Loss EBL: None Specimens Specimans 13F 20cm 3L Trialysis temp HDC removed and discarded Condition of Patient Condition of Patient Stable. No apparent complication. VINNY ORTIZ MD Oct 07, 2016 17:29
[2016-10-08] MEDS ORDERED: FUROSEMIDE 40 MG TABLET. PO SCH (09:00)
== END 2016-10-07 19:00 | disposition home health service (06) | DRG 616 ==
LOC: ER 10:24 → 1 WEST ICU 11:40 → 6 SOUTH 09-23 15:58 → 2 SOUTH 09-27 12:19
PROVIDERS: ADMIT Internal Medicine; ATTEND Internal Medicine
PROC: 02H633Z Insertion of Infusion Device into Right Atrium, Percutaneous Approach (ICD-10-PCS; 2016-09-24)
PROC: B244ZZZ Ultrasonography of Right Heart (ICD-10-PCS; 2016-09-24)
PROC: B41D1ZZ Fluoroscopy of Aorta and Bilateral Lower Extremity Arteries using Low Osmolar Contrast (ICD-10-PCS; 2016-09-24)
PROC: 06BP0ZZ Excision of Right Saphenous Vein, Open Approach (ICD-10-PCS; 2016-09-27)
PROC: 041M09Q Bypass Right Popliteal Artery to Lower Extremity Artery with Autologous Venous Tissue, Open Approach (ICD-10-PCS; principal; 2016-09-27 12:45)
PROC: 0Y6P0Z2 Detachment at Right 1st Toe, Mid, Open Approach (ICD-10-PCS; 2016-09-30)
PROC: 0Y6X0Z3 Detachment at Right 5th Toe, Low, Open Approach (ICD-10-PCS; 2016-09-30)
PROC: 30233N1 Transfusion of Nonautologous Red Blood Cells into Peripheral Vein, Percutaneous Approach (ICD-10-PCS; 2016-09-30)
PROC: 0Y6R0Z2 Detachment at Right 2nd Toe, Mid, Open Approach (ICD-10-PCS; 2016-09-30)
PROC: 0HBMXZZ Excision of Right Foot Skin, External Approach (ICD-10-PCS; 2016-09-30)
DX: E11.621 Type 2 diabetes mellitus with foot ulcer (principal); G93.41 Metabolic encephalopathy; E43 Unspecified severe protein-calorie malnutrition; I50.33 Acute on chronic diastolic (congestive) heart failure; J96.20 Acute and chronic respiratory failure, unspecified whether with hypoxia or hypercapnia; E11.52 Type 2 diabetes mellitus with diabetic peripheral angiopathy with gangrene; J44.1 Chronic obstructive pulmonary disease with (acute) exacerbation; E87.2 Acidosis; I13.0 Hypertensive heart and chronic kidney disease with heart failure and stage 1 through stage 4 chronic kidney disease, or unspecified chronic kidney disease; L97.919 Non-pressure chronic ulcer of unspecified part of right lower leg with unspecified severity; R18.8 Other ascites; N17.0 Acute kidney failure with tubular necrosis; L89.619 Pressure ulcer of right heel, unspecified stage; D63.1 Anemia in chronic kidney disease; E11.22 Type 2 diabetes mellitus with diabetic chronic kidney disease; E11.42 Type 2 diabetes mellitus with diabetic polyneuropathy; E11.649 Type 2 diabetes mellitus with hypoglycemia without coma; E11.65 Type 2 diabetes mellitus with hyperglycemia; E78.00 Pure hypercholesterolemia, unspecified; E78.5 Hyperlipidemia, unspecified; F17.210 Nicotine dependence, cigarettes, uncomplicated; I25.10 Atherosclerotic heart disease of native coronary artery without angina pectoris; I27.2 Other secondary pulmonary hypertension; I77.1 Stricture of artery; L97.529 Non-pressure chronic ulcer of other part of left foot with unspecified severity; M19.90 Unspecified osteoarthritis, unspecified site; N18.3 Chronic kidney disease, stage 3 (moderate); Z79.01 Long term (current) use of anticoagulants; Z79.4 Long term (current) use of insulin; Z79.51 Long term (current) use of inhaled steroids; Z82.49 Family history of ischemic heart disease and other diseases of the circulatory system; Z86.711 Personal history of pulmonary embolism; Z86.718 Personal history of other venous thrombosis and embolism; Z86.74 Personal history of sudden cardiac arrest; Z91.81 History of falling; Z68.26 Body mass index [BMI] 26.0-26.9, adult; Z86.14 Personal history of Methicillin resistant Staphylococcus aureus infection; I25.2 Old myocardial infarction; Z88.8 Allergy status to other drugs, medicaments and biological substances
CPT/HCPCS: 36415; 36556; 36600; 37224; 71010; 75625; 75710; 75774; 76937; 77001; 78582; 80048; 80053; 80069; 80076; 81001; 82533; 82550; 82553; 82570; 82728; 82805; 82962; 83520; 83540; 83550; 83605; 83690; 83735; 83880; 84100; 84156; 84443; 84484; 85018; 85027; 85045; 85610; 86021; 86160; 86850; 86900; 86901; 86920; 87040; 87071; 87075; 87205; 87641; 88305; 88311; 93005; 93308; 93923; 93970; 94250; 94640; 94660; 94760; 96374; A4215; A9540; A9558; C1713; C1725; C1769; C1892; C1894; C2623; G0269; G0481; J0360; J0690; J0881; J1100; J1630; J1650; J1815; J1940; J1956; J2250; J2270; J2405; J2440; J2704; J2710; J3010; J3490; J7030; J7040; J7042; J7120; J7512; J7620; P9016; Q9967; S0028; 83516; 83876; 97110; 97116; 97530; J2001

== ENCOUNTER 2016-11-05 18:16 | Inpatient (IN) | payer MEDICARE ==
[~2016-11-05] VITALS: Ht 188 cm; Wt 91.3 kg
[~2016-11-05 18:16] MED LIST changes: +AMLO10TA4 PO; +CLOP75TA57 PO; +FURO-68 PO; +INSU100V13 SQ
[2016-11-05 18:59] LABS: BASO % 1 % (0-3); EOS % 2 % (0-3); HEMATOCRIT 30.3 % (39.0-53.0); HEMOGLOBIN 9.5 g/dL (13.0-17.5); LYMPH # 1.2 x10^3/uL (1.0-4.8); LYMPH % 18 % (24-48); MEAN CORPUSCULAR HEMOGLOBIN 27 pg (25-35); MEAN CORPUSCULAR HGB CONC 31 g/dL (31-37); MEAN CORPUSCULAR VOLUME 86 fL (79-100); MONO % 9 % (0-9); NEUT % 71 % (31-73); PLATELET COUNT 260 x10^3/uL (140-400); RED BLOOD COUNT 3.51 x10^6/uL (4.30-5.70); RED CELL DISTRIBUTION WIDTH 16.5 % (11.5-14.5); WHITE BLOOD COUNT 6.6 x10^3/uL (4.0-11.0)
[2016-11-05] MEDS ORDERED: IPRATROPIUM BROMIDE 0.5 MG/2.5 ML NEBU. NEB ONE (19:00)
[2016-11-05] MEDS ORDERED: ALBUTEROL SULFATE 2.5 MG/3 ML NEBU. CONT NEB ONE (19:00)
--- NOTE | 2016-11-05 19:15 | ED.ADGEN ---
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 Patient reports dyspnea with exertion and when supine. On EMS arrival, the patient's O2 saturation was 81% on room air. Denies chest pain, nausea, vomiting,, sweats, fevers, chills. Increased leg pain or swelling. Patient is a very poor historian. Patient history obtained from family members and medical records. Patient requests that his hospice status be revoked if needed for hospital admission. Review of Systems Review of Systems ROS as per HPI. Current Medications Current Medications Current Medications Medications (Trade) Dose Ordered Sig/Ann Marie Start Time Stop Time Status Last Admin Dose Admin Albuterol Sulfate (Ventolin Neb Soln) 10 mg 1X ONCE 11/05/16 19:00 11/05/16 19:01 DC 11/05/16 19:22 10 MG Ipratropium [place] (Atrovent) 0.5 mg 1X ONCE 11/05/16 19:00 11/05/16 19:01 DC 11/05/16 19:22 0.5 MG Allergies Allergies Allergies Coded Allergies Type Severity Reaction Last Updated Verified lisinopril Allergy Severe Anaphylaxis 09/30/16 Yes Physical Exam Physical Exam Constitutional: Chronically ill and debilitated in appearance. No distress. HENT: Normocephalic, atraumatic, bilateral external ears normal, oropharynx moist, nose normal. Eyes: PERRL. Neck: Normal range of motion. Cardiovascular:Heart rate regular rhythm, no murmur. Edema extending from feet to proximal legs. Lungs & Thorax: Patient's nonlabored, diminished coarse breath sounds bilaterally. Abdomen: Bowel sounds normal, soft, no tenderness. Skin: Healing right great toe stump, diabetic leg ulcers left leg. Extremities: No tenderness. Neurologic: Alert and oriented, normal motor function, normal sensory function, no focal deficits noted. Psychologic: Affect normal. Current Patient Data Vital Signs Vital Signs Date Time Temp Pulse Resp B/P (MAP) Pulse Ox O2 Delivery O2 Flow Rate FiO2 11/05/16 19:25 92 Nasal Cannula 3.0 11/05/16 18:16 98.6 82 20 154/84 (107) 98.6 Lab Values Laboratory Tests Test 11/05/16 18:15 11/05/16 18:25 11/05/16 19:42 Erythrocyte Sedimentation Rate 58 (0-15) H D-Dimer (Lizbeth) 3.13 ug/mlFEU (0.00-0.50) H White Blood Count 6.6 x10^3/uL (4.0-11.0) Red Blood Count 3.51 x10^6/uL (4.30-5.70) L Hemoglobin 9.5 g/dL (13.0-17.5) L Hematocrit 30.3 % (39.0-53.0) L Mean Corpuscular Volume 86 fL (79-100) Mean Corpuscular Hemoglobin 27 pg (25-35) Mean Corpuscular Hemoglobin Concent 31 g/dL (31-37) Red Cell Distribution Width 16.5 % (11.5-14.5) H Platelet Count 260 x10^3/uL (140-400) Neutrophils (%) (Auto) 71 % (31-73) Lymphocytes (%) (Auto) 18 % (24-48) L Monocytes (%) (Auto) 9 % (0-9) Eosinophils (%) (Auto) 2 % (0-3) Basophils (%) (Auto) 1 % (0-3) Neutrophils # (Auto) 4.7 x10^3uL (1.8-7.7) Lymphocytes # (Auto) 1.2 x10^3/uL (1.0-4.8) Monocytes # (Auto) 0.6 x10^3/uL (0.0-1.1) Eosinophils # (Auto) 0.1 x10^3/uL (0.0-0.7) Basophils # (Auto) 0.0 x10^3/uL (0.0-0.2) Prothrombin Time 12.8 SEC (11.7-14.0) Prothrombin Time INR 1.0 (0.8-1.1) Sodium Level 146 mmol/L (136-145) H Potassium Level 4.8 mmol/L (3.5-5.1) Chloride Level 106 mmol/L (98-107) Carbon Dioxide Level 33 mmol/L (21-32) H Anion Gap 7 (6-14) Blood Urea Nitrogen 28 mg/dL (8-26) H Creatinine 1.9 mg/dL (0.7-1.3) H Estimated GFR (Cockcroft-Gault) 42.1 BUN/Creatinine Ratio 15 (6-20) Glucose Level 126 mg/dL (70-99) H Calcium Level 8.2 mg/dL (8.5-10.1) L Total Bilirubin 0.2 mg/dL (0.2-1.0) Aspartate Amino Transferase (AST) 17 U/L (15-37) Alanine Aminotransferase (ALT) 18 U/L (16-63) Alkaline Phosphatase 85 U/L (46-116) Creatine Kinase 75 U/L (39-308) Troponin I Quantitative 0.024 ng/mL (0.000-0.055) CZ-Gjb-N-Type Natriuretic Peptide 89162 pg/mL (0-124) H Total Protein 6.9 g/dL (6.4-8.2) Albumin 3.2 g/dL (3.4-5.0) L Albumin/Globulin Ratio 0.9 (1.0-1.7) L Urine Collection Type Unknown Urine Color Yellow Urine Clarity Clear Urine pH 5.5 Urine Specific [place] 1.010 Urine Protein 100 mg/dL (NEG-TRACE) Urine Glucose (UA) Negative mg/dL (NEG) Urine Ketones (Stick) Negative mg/dL (NEG) Urine Blood Trace (NEG) Urine Nitrite Negative (NEG) Urine Bilirubin Negative (NEG) Urine Urobilinogen Dipstick 1.0 mg/dL (0.2 mg/dL) Urine Leukocyte Esterase Negative (NEG) Urine RBC Occ /HPF (0-2) Urine WBC 0 /HPF (0-4) Urine Squamous Epithelial Cells Few /LPF Urine Bacteria 0 /HPF (0-FEW) Urine Hyaline Casts Few /HPF Urine Mucus Mod /LPF Laboratory Tests 11/05/16 18:25 Laboratory Tests 11/05/16 18:25 EKG EKG [EKG: reviewed] Radiology/Procedures Radiology/Procedures [Chest XR: PVC with effusion.] Course & Med Decision Making Course & Med Decision Making Pertinent Labs and Imaging studies reviewed. (See chart for details) O2 saturations improved with treatment. Dr. Lira to admit. Jimmy Disclaimer Jimmy Disclaimer This electronic medical record was generated, in whole or in part, using a voice recognition dictation system. ANNELISE CAMARGO DO Nov 05, 2016 19:15
[2016-11-05 19:25] LABS: PROTHROMBIN TIME PATIENT 12.8 SEC (11.7-14.0)
[2016-11-05 19:39] LABS: CALCIUM 8.2 mg/dL (8.5-10.1); CREATININE 1.9 mg/dL (0.7-1.3); GFR 42.1; POTASSIUM 4.8 mmol/L (3.5-5.1)
[2016-11-05 19:44] LABS: ALBUMIN 3.2 g/dL (3.4-5.0); ALBUMIN/GLOBULIN RATIO 0.9 (1.0-1.7); TOTAL BILIRUBIN 0.2 mg/dL (0.2-1.0); TOTAL PROTEIN 6.9 g/dL (6.4-8.2)
[2016-11-05 19:48] LABS: BILIRUBIN,URINE NEGATIVE (NEG); GLUCOSE,URINE NEGATIVE (NEG); NITRITE,URINE NEGATIVE (NEG); PH,URINE 5.5; PROTEIN,URINE 100 mg/dL (NEG-TRACE)
[2016-11-05 19:55] LABS: BACTERIA,URINE 0 /HPF (0-FEW); RBC,URINE OCC /HPF (0-2); SQUAMOUS EPITHELIAL CELL,UR FEW /LPF; WBC,URINE 0 /HPF (0-4)
[2016-11-05] MEDS ORDERED: FUROSEMIDE 40 MG/4 ML VIAL. IVP ONE (20:15)
[2016-11-05] MEDS ORDERED: ONDANSETRON PF 4 MG/2 ML VIAL. IV PRN ×2 (20:15→20:20)
[2016-11-05] MEDS ORDERED: DEXTROSE 50% 25 GM / 50ML DISP.SYRIN. IV PRN (20:30)
[2016-11-05] MEDS ORDERED: NITROGLYCERIN SUBLINGUAL 0.4 MG BOTTLE OF 25. SL PRN (20:30)
--- NOTE | 2016-11-05 20:30 | PDOC1 ---
History and Physical Date of Admission Date of Admission DATE: 11/05/16 TIME: 20:23 Identification/Chief Complaint Chief Complaint SOA Problems: Source Source: Caregiver, Chart review, Patient History of Present Illness History of Present Illness 76 y.o AA male known to me, complicated past medical most significant for PE and DVT with signif bleeding issues when placed on AC so not on any AC and I do believe he has an IVC filter in place, LAst admitted here 1 month ago for hypoglycemia, VQ and US legs showed NO new DVt or PE at that time, Did well in [facility] but ran out of SNU days hence dcd to home and actually was on hospice until this admit. Sats 81%, CXR congestion, signif pitting edema, more than usual;, Rt heel ulcer/ wound, DM 2 labile with hypoglycemia last admission,Also recent PAD vasc sx and had OP ff up last week and was told everything is fine On face mask, BNP elevated, CXR edema, wounds etc Admit for diuresis, I will US legs again (m,ore swelling than normal), make sure no new developing PE, wound care, SSI moderate dolse and have cards and pulmo see Full code>?? Discussed plan of care with str at bedside Seen at ER Past Medical History Cardiovascular: CAD, HTN, Hyperlipidemia, Other Pulmonary: COPD, Pulmonary embolus, Other GI: Other Heme/Onc: Anemia NOS, Other Hepatobiliary: No pertinent hx Psych: No pertinent hx Musculoskeletal: Osteoarthritis Rheumatologic: No pertinent hx Infectious disease: Other Renal/: Chronic renal insuff Endocrine: Diabetes Past Surgical History Past Surgical History: Other Family History Family History: No Significant, Hypertension Social History Smoke: No ALCOHOL: none Drugs: None Current Medications Current Medications Current Medications Albuterol Sulfate (Ventolin Neb Soln) 10 mg 1X ONCE CONT NEB Last administered on 11/05/16 19:22; Start 11/05/16 at 19:00; Stop 11/05/16 at 19:01 ; Status DC Ipratropium [place] (Atrovent) 0.5 mg 1X ONCE NEB Last administered on 19:22; Start 11/05/16 at 19:00; Stop 11/05/16 at 19:01; Status DC Furosemide (Lasix) 40 mg 1X ONCE IVP Last administered on 11/05/16 20:18; Start 11/05/16 at 20:15; Stop 11/05/16 at 20:16; Status DC Ondansetron HCl (Zofran) 4 mg PRN Q8HRS PRN IV NAUSEA/VOMITING; Start 11/05/16 at 20:15; Stop 11/06/16 at 20:14 Furosemide (Lasix) 40 mg BID92 IVP ; Start 11/06/16 at 09:00 Active Scripts Active Norvasc (Amlodipine Besylate) 10 Mg Tablet 10 Mg PO DAILY 30 Days Levemir (Insulin Detemir) 100 Unit/1 Ml Vial 10 Unit SQ QHS 30 Days Lasix (Furosemide) 40 Mg Tablet 1 Tab PO DAILY Plavix (Clopidogrel Bisulfate) 75 Mg Tablet 1 Tab PO DAILY Reported Advair 100-50 Diskus (Fluticasone/Salmeterol) 1 Each Disk.w.dev 1 Puff IH BID Symbicort 160-4.5 Mcg Inhaler (Budesonide/Formoterol Fumarate) 10.2 Gm Hfa.aer.ad 2 Puff IH BID Isosorbide Mononitrate Er (Isosorbide Mononitrate) 120 Mg Tab.er.24h 120 Mg PO DAILY Diltiazem 24HR Cd (Diltiazem Hcl) 240 Mg Cap.er.24h 240 Mg PO DAILY NITROGLYCERIN SubLingual (Nitroglycerin) 0.4 Mg Tab.subl 0.4 Mg SL PRN Q5MIN PRN Atorvastatin Calcium 40 Mg Tablet 40 Mg PO HS Allergies Allergies: Coded Allergies: lisinopril (Verified Allergy, Severe, Anaphylaxis, 09/30/16) Emergent Intubation 07/12/16. ROS General: YES: Fatigue, Other (gen weakness) PSYCHOLOGICAL ROS: No: Anxiety, Behavioral Disorder, Concentration difficultie , Decreased libido, Depression, Disorientation, Hallucinations, Hostility, Irritablity, Memory difficulties, Mood Swings, Obsessive thoughts, Physical abuse, Sexual abuse, Sleep disturbances, Suicidal ideation, Other Eyes: No Blurry vision, No Decreased vision, No Double vision, No Dry eyes, No Excessive tearing, No Eye Pain, No Itchy Eyes, No Loss of vision, No Photophobia , No Scotomata, No Uses contacts, No Uses glasses, No Other HEENT: No: Heacaches, Visual Changes, Hearing change, Nasal congestion, Nasal discharge, Oral lesions, Sinus pain, Sore Throat, Epistaxis, Sneezing, Snoring, Tinnitus, Vertigo, Vocal changes, Other ALLERGY AND IMMUNOLOGY: No: Hives, Insect Bite Sensitivity, Itchy/Watery Eyes, Nasal Congestion, Post Nasal Drip, Seasonal Allergies, Other Hematological and Lymphatic: No: Bleeding Problems, Blood Clots, Blood Transfusions, Brusing, Night Sweats, Pallor, Swollen Lymph Nodes, Other ENDOCRINE: No: Breast Changes, Galactorrhea, Hair Pattern Changes, Hot Flashes , Malaise/lethargy, Mood Swings, Palpitations, Polydipsia/polyuria, Skin Changes , Temperature Intolerance, Unexpected Weight Changes, Other Breast: No New/Changing Breast Lumps, No Nipple changes, No Nipple discharge, No Other Respiratory: YES: Shortness of breath, SOB with excertion Cardiovascular: No Chest Pain, No Palpitations, No Orthopnea, No Paroxysmal Noc. Dyspnea, No Edema, No Lt Headedness, No Other Genitourinary: No Dysuria, No Frequency, No Incontinence, No Hematuria, No Retention, No Discharge, No Urgency, No Pain, No Flank Pain, No Other, No , No , No , No , No , No , No Musculoskeletal: No Gait Disturbance, No Joint Pain, No Joint Stiffness, No Joint Swelling, No Muscle Pain, No Muscular Weakness, No Pain In:, No Swelling In:, No Other Neurological: No Behavorial Changes, No Bowel/Bladder ControlChng, No Confusion , No Dizziness, No Gait Disturbance, No Headaches, No Impaired Coord/balance, No Memory Loss, No Numbness/Tingling, No Seizures, No Speech Problems, No Tremors, No Visual Changes, No Weakness, No Other Skin: Yes Other (long toe nails, foul smelling feet with RT heel wound) Physical Exam General: Alert, Oriented X3, Cooperative, No acute distress, mild distress HEENT: PERRLA Lungs: Normal air movement, Other (dec BS< no crackles, or wheezes) Cardiovascular: S1, S2 Abdomen: Normal bowel sounds, Soft, No tenderness, No hepatosplenomegaly, No masses Male Genitals Exam: normal genitalia, normal prostate Rectal Exam: not examined PELVIC: Nml ext genitalia Extremities: Other (amputation some digits of toes, Rt heel ulcer, foul smelling feet, long toe nails) Neuro: Normal gait, Normal speech, Strength at 5/5 X4 ext, Normal tone, Sensation intact, Cranial nerves 3-12 NL, Reflexes 2+ Psych/Mental Status: Mental status NL, Mood NL Vitals Vitals Vital Signs Date Time Temp Pulse Resp B/P (MAP) Pulse Ox O2 Delivery O2 Flow Rate FiO2 11/05/16 20:18 93 177/107 (130) 96 Aerosol Mask 10.0 11/05/16 18:16 98.6 20 98.6 Labs Labs Laboratory Tests Test 11/05/16 18:25 11/05/16 19:42 White Blood Count 6.6 x10^3/uL (4.0-11.0) Red Blood Count 3.51 x10^6/uL (4.30-5.70) Hemoglobin 9.5 g/dL (13.0-17.5) Hematocrit 30.3 % (39.0-53.0) Mean Corpuscular Volume 86 fL (79-100) Mean Corpuscular Hemoglobin 27 pg (25-35) Mean Corpuscular Hemoglobin Concent 31 g/dL (31-37) Red Cell Distribution Width 16.5 % (11.5-14.5) Platelet Count 260 x10^3/uL (140-400) Neutrophils (%) (Auto) 71 % (31-73) Lymphocytes (%) (Auto) 18 % (24-48) Monocytes (%) (Auto) 9 % (0-9) Eosinophils (%) (Auto) 2 % (0-3) Basophils (%) (Auto) 1 % (0-3) Neutrophils # (Auto) 4.7 x10^3uL (1.8-7.7) Lymphocytes # (Auto) 1.2 x10^3/uL (1.0-4.8) Monocytes # (Auto) 0.6 x10^3/uL (0.0-1.1) Eosinophils # (Auto) 0.1 x10^3/uL (0.0-0.7) Basophils # (Auto) 0.0 x10^3/uL (0.0-0.2) Prothrombin Time 12.8 SEC (11.7-14.0) Prothromb Time International Ratio 1.0 (0.8-1.1) Sodium Level 146 mmol/L (136-145) Potassium Level 4.8 mmol/L (3.5-5.1) Chloride Level 106 mmol/L (98-107) Carbon Dioxide Level 33 mmol/L (21-32) Anion Gap 7 (6-14) Blood Urea Nitrogen 28 mg/dL (8-26) Creatinine 1.9 mg/dL (0.7-1.3) Estimated GFR (Cockcroft-Gault) 42.1 BUN/Creatinine Ratio 15 (6-20) Glucose Level 126 mg/dL (70-99) Calcium Level 8.2 mg/dL (8.5-10.1) Total Bilirubin 0.2 mg/dL (0.2-1.0) Aspartate Amino Transf (AST/SGOT) 17 U/L (15-37) Alanine Aminotransferase (ALT/SGPT) 18 U/L (16-63) Alkaline Phosphatase 85 U/L (46-116) Creatine Kinase 75 U/L (39-308) Troponin I Quantitative 0.024 ng/mL (0.000-0.055) QA-Wes-Y-Type Natriuretic Peptide 87891 pg/mL (0-124) Total Protein 6.9 g/dL (6.4-8.2) Albumin 3.2 g/dL (3.4-5.0) Albumin/Globulin Ratio 0.9 (1.0-1.7) Urine Collection Type Unknown Urine Color Yellow Urine Clarity Clear Urine pH 5.5 Urine Specific [place] 1.010 Urine Protein 100 mg/dL (NEG-TRACE) Urine Glucose (UA) Negative mg/dL (NEG) Urine Ketones (Stick) Negative mg/dL (NEG) Urine Blood Trace (NEG) Urine Nitrite Negative (NEG) Urine Bilirubin Negative (NEG) Urine Urobilinogen Dipstick 1.0 mg/dL (0.2 mg/dL) Urine Leukocyte Esterase Negative (NEG) Urine RBC Occ /HPF (0-2) Urine WBC 0 /HPF (0-4) Urine Squamous Epithelial Cells Few /LPF Urine Bacteria 0 /HPF (0-FEW) Urine Hyaline Casts Few /HPF Urine Mucus Mod /LPF Laboratory Tests Test 11/05/16 18:25 11/05/16 19:42 White Blood Count 6.6 x10^3/uL (4.0-11.0) Red Blood Count 3.51 x10^6/uL (4.30-5.70) Hemoglobin 9.5 g/dL (13.0-17.5) Hematocrit 30.3 % (39.0-53.0) Mean Corpuscular Volume 86 fL (79-100) Mean Corpuscular Hemoglobin 27 pg (25-35) Mean Corpuscular Hemoglobin Concent 31 g/dL (31-37) Red Cell Distribution Width 16.5 % (11.5-14.5) Platelet Count 260 x10^3/uL (140-400) Neutrophils (%) (Auto) 71 % (31-73) Lymphocytes (%) (Auto) 18 % (24-48) Monocytes (%) (Auto) 9 % (0-9) Eosinophils (%) (Auto) 2 % (0-3) Basophils (%) (Auto) 1 % (0-3) Neutrophils # (Auto) 4.7 x10^3uL (1.8-7.7) Lymphocytes # (Auto) 1.2 x10^3/uL (1.0-4.8) Monocytes # (Auto) 0.6 x10^3/uL (0.0-1.1) Eosinophils # (Auto) 0.1 x10^3/uL (0.0-0.7) Basophils # (Auto) 0.0 x10^3/uL (0.0-0.2) Prothrombin Time 12.8 SEC (11.7-14.0) Prothromb Time International Ratio 1.0 (0.8-1.1) Sodium Level 146 mmol/L (136-145) Potassium Level 4.8 mmol/L (3.5-5.1) Chloride Level 106 mmol/L (98-107) Carbon Dioxide Level 33 mmol/L (21-32) Anion Gap 7 (6-14) Blood Urea Nitrogen 28 mg/dL (8-26) Creatinine 1.9 mg/dL (0.7-1.3) Estimated GFR (Cockcroft-Gault) 42.1 BUN/Creatinine Ratio 15 (6-20) Glucose Level 126 mg/dL (70-99) Calcium Level 8.2 mg/dL (8.5-10.1) Total Bilirubin 0.2 mg/dL (0.2-1.0) Aspartate Amino Transf (AST/SGOT) 17 U/L (15-37) Alanine Aminotransferase (ALT/SGPT) 18 U/L (16-63) Alkaline Phosphatase 85 U/L (46-116) Creatine Kinase 75 U/L (39-308) Troponin I Quantitative 0.024 ng/mL (0.000-0.055) IJ-Mjl-J-Type Natriuretic Peptide 51793 pg/mL (0-124) Total Protein 6.9 g/dL (6.4-8.2) Albumin 3.2 g/dL (3.4-5.0) Albumin/Globulin Ratio 0.9 (1.0-1.7) Urine Collection Type Unknown Urine Color Yellow Urine Clarity Clear Urine pH 5.5 Urine Specific [place] 1.010 Urine Protein 100 mg/dL (NEG-TRACE) Urine Glucose (UA) Negative mg/dL (NEG) Urine Ketones (Stick) Negative mg/dL (NEG) Urine Blood Trace (NEG) Urine Nitrite Negative (NEG) Urine Bilirubin Negative (NEG) Urine Urobilinogen Dipstick 1.0 mg/dL (0.2 mg/dL) Urine Leukocyte Esterase Negative (NEG) Urine RBC Occ /HPF (0-2) Urine WBC 0 /HPF (0-4) Urine Squamous Epithelial Cells Few /LPF Urine Bacteria 0 /HPF (0-FEW) Urine Hyaline Casts Few /HPF Urine Mucus Mod /LPF VTE Prophylaxis Ordered VTE Prophylaxis Devices: Yes VTE Pharmacological Prophylaxi: Yes Assessment/Plan Assessment/Plan 1. CHF exacrebation/pulm edema 2. Acute hypoxic respi failure, hx PE, hx DVT and BLEEDING if on AC 3 Diabetic wound, heel wound 4. 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 Mod PCM 8. High fall risk 9. Gen weakness 10/ sp R toe ampuitations 11-. s./p fem pop bypass, R PLAn: Admit to [facility] CArds consult Diurese Watch lytes while diuresing PT/OT Consult pulmo re hyproxic respi failure CI to AC bec of signif bleeding in past - benefit from DVT prophy low dose while in house? Podiatry for toe nail clipping Wound care for heel DM wound SSI moderate dos eonly - hx of hypoglycemia, can be labile Nutrition consult NEbs Will need SNU but ran out of days hence needs co pay I am inclined to recheck a venous doppler again this Admit (last was last month , no new DVT) bec of signif swelling more than usual, make sure no new DVT Can also check d dmier re hypoxia - last vq was last month's admit, no new PE seen at [facility] Previously on hospice.... BALA BRYANT MD Nov 05, 2016 20:30
[2016-11-05] MEDS: ATORVASTATIN CALCIUM 40 MG TABLET. PO SCH (21:00)
[2016-11-05] MEDS: IPRATRPIUM/ALBUTEROL 0.5/2.5MG 3 ML NEBU. NEB SCH (21:00)
[2016-11-05] MEDS: INSULIN ASPART 300 UNITS/3 ML INSULN.PEN SQ SCH (21:00)
[2016-11-05] MEDS: INSULIN DETEMIR 300 UNITS/3 ML INSULN.PEN. SQ SCH (21:00)
[2016-11-05] MEDS ORDERED: NON FORMULARY ITEM (Budesonide/Formoterol Fumarate (Symbicort 160-4.5 Mcg Inhaler) 2 PUFF) IH SCH (21:00)
[2016-11-05] MEDS: BUDESONIDE 0.5 MG/2 ML NEBU. NEB SCH (21:00)
[2016-11-05 21:07] VITALS: BP 146/79
[2016-11-05] MEDS ORDERED: IV NORMAL SALINE 1000ML BAG 1,000 ML IV ONE (21:30)
[2016-11-05 23:20] VITALS: BP 169/87
[2016-11-06] VITALS (7 sets, daily range): BP systolic 129–175; BP diastolic 61–88
[2016-11-06] MEDS: LABETALOL 20 MG/4 ML DISP.SYRIN. IVP PRN ×2 (01:35→04:40)
--- NOTE | 2016-11-06 03:42 | ACF ---
Admission Forms Criteria HEART FAILURE: COMMON COMPLICATIONS (Place 'X' for any and all applicable criteria): Ongoing inpatient care may be indicated for heart failure with 1 or more of the following (1)(2)(3)(4)(5)(6)(7)(8): [ ]I. New-onset heart failure [ ]II. Acute cardiac ischemia causing or associated with failure [ ]III. Ongoing need for care for primary condition requiring frequent therapy adjustments because of changes in cardiac function (eg, drug dosage changes for drugs that are renally metabolized) [X]IV. Complications of heart failure, including 1 or more of the following: [ ]a) Hemodynamic instability [ ]b) Pericardial effusion [ ]c) Symptomatic pleural effusion [ ]d) Hypoxemia [ ]e) Tachypnea [X]f) Dyspnea [ ]g) Syncope [ ]h) Altered mental status [ ]i) Acute renal insufficiency that is severe (reduction of more than 50% in estimated glomerular filtration rate from baseline) or progressive reduction of more than 25% in estimated glomerular filtration rate from baseline, with creatinine continuing to rise) [ ]j) Debilitating anasarca (eg tissue breakdown with infection, inability to void due to edema) (E) [ ]k) Clinically significant metabolic abnormalities due to heart failure (eg, new-onset metabolic acidosis) Extended stay may be needed until ALL of the following are present (1)(3)(18)(41 )(55) [ ]a) Hemodynamic stability [ ]b) Stable and effective diuretic regimen established (or patient on stable dialysis regimen if in chronic renal failure) [ ]c) Volume status acceptable on oral medication [ ]d) Breathing comfortably at rest [ ]e) Saturation of arterial oxygen greater than 90% or at acceptable baseline [ ]f) Pulmonary edema absent or improved [ ]g) Peripheral or sacral edema absent or improved [ ]h) Renal function stable and manageable at a lower level of care [ ]i) Complications (eg, pleural effusion) resolved or manageable at a lower level of care [ ]g) Patient or caregiver has received written discharge instructions or educational material addressing activity level, diet, discharge medications, follow-up appointment, weight monitoring, and what to do if symptoms worsen.(25)(26) The original [facility] content created by [employer] has been revised. The portions of the content which have been revised are identified through the use of italic text, and [facility] has neither reviewed nor approved the modified material.All other unmodified content is copyright [facility]. Please see references footnoted in the original [facility] edition 2015 Admission Criteria Met?: Yes PRASHANT DANIEL Nov 06, 2016 03:42
[2016-11-06] MEDS: BUDESONIDE 0.5 MG/2 ML NEBU. NEB SCH ×2 (07:08→20:31)
[2016-11-06] MEDS: IPRATRPIUM/ALBUTEROL 0.5/2.5MG 3 ML NEBU. NEB SCH ×4 (07:08→20:31)
[2016-11-06] MEDS: INSULIN ASPART 300 UNITS/3 ML INSULN.PEN SQ SCH ×3 (08:00→17:28)
--- NOTE | 2016-11-06 08:47 | RAD ---
AP chest. History: Short of air AP view was taken of the chest. The heart is enlarged. The patient is rotated to the right. There are small bilateral effusions. There is hazy atelectasis or infiltrate or pulmonary edema in the lung bases. The pattern is similar to the study from October 06. There is slightly less vascular congestion on today's study. Impression: 1. Cardiomegaly with bilateral effusions and mild vascular congestion likely persistent heart failure although slightly less prominent compared to the study from one month ago. 2. Basilar pneumonia cannot be excluded.
[2016-11-06] MEDS: FUROSEMIDE 40 MG/4 ML VIAL. IVP SCH ×2 (08:53→14:34)
[2016-11-06] MEDS: ISOSORBIDE MONONITRATE ER 30 MG TAB.ER.24H PO SCH (08:54)
[2016-11-06] MEDS: CLOPIDOGREL BISULFATE 75 MG TABLET PO SCH (08:55)
[2016-11-06] MEDS: amLODIPine BESYLATE 10 MG TABLET PO SCH (08:55)
--- NOTE | 2016-11-06 09:58 | RAD ---
Bilateral lower extremity venous Doppler. History: Chronic lower extremity swelling, short of air, recent right leg arterial bypass Bilateral lower extremity venous Doppler study was performed. Real-time imaging with compression, color-flow imaging and spectral Doppler with augmentation were utilized for evaluation. The common femoral veins in both lower extremities are compressible. The femoral and popliteal veins are compressible in both lower extremities. There is normal color flow throughout the deep veins of both lower extremities including the calf veins. There is normal antegrade flow with augmentation. There is flow in the greater saphenous veins. There is lower extremity edema. There are mildly prominent lymph nodes in the groins which may be reactive with normal central echogenic hair. 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 Impression: 1. Bilateral lower extremity venous Doppler negative for acute deep venous thrombosis. 2. Popliteal cyst on the right.
--- NOTE | 2016-11-06 10:44 | PDOC2 ---
CARDIAC CONSULT DATE OF CONSULT Date of Consult DATE: 11/06/16 TIME: 10:31 REASON FOR CONSULT Reason for Consult: CHF exacerbation REFERRING PHYSICIAN Referring Physician: Greg SOURCE Source: Chart review, Patient HISTORY OF PRESENT ILLNESS HISTORY OF PRESENT ILLNESS This is a 76 yo AA male admitted for increasing SOA. He is a poor historian and family not available for further details. Reports that he has been having SOA and CUELLAR in the last few days. Reports compliance with his home medications but noted his SBP has been in the 170s. Positive for leg swelling and orthopnea. No notable bloating, palpitations. Denies any CP, nausea or diarrhea. He does drink about 3 L fluids daily and does not weigh self. Presently he is not feeling SOA and no complains. PAST MEDICAL HISTORY Past Medical History Cardiovascular: CAD, HTN, Hyperlipidemia, Other (PEA/cardiopulmonary arrest r/ t PE; angioedema r/t to ACEi; PAD with small bilateral common iliac aneurysm) Pulmonary: COPD, Pulmonary embolus (extensive), Other (severe pulmonary HTN) GI: Other (dysphagia) Heme/Onc: Anemia NOS, Other (RLE DVT) Hepatobiliary: No pertinent hx Psych: No pertinent hx Musculoskeletal: Osteoarthritis Rheumatologic: No pertinent hx Infectious disease: Other (MRSA) ENT: No pertinent hx Renal/: Chronic renal insuff Endocrine: Diabetes (2) Dermatology: Other (right foot eschars) PAST SURGICAL HISTORY Past Surgical History [facility] 07/19/2016, 06/2016 IVC filter, 09/2016 Right pop DP bypass then partial digit amputations of first, second and fifth toes and heel debridement, right heel. FAMILY HISTORY Family History noncontributory SOCIAL HISTORY Social History Smoke: <1 pack per day ALCOHOL: none Drugs: None Lives: with Family CURRENT MEDICATIONS CURRENT MEDICATIONS Current Medications Medications (Trade) Dose Ordered Sig/Ann Marie Route PRN Reason Start Time Stop Time Status Last Admin Dose Admin Albuterol Sulfate (Ventolin Neb Soln) 10 mg 1X ONCE CONT NEB 11/05/16 19:00 11/05/16 19:01 DC 11/05/16 19:22 Ipratropium [place] (Atrovent) 0.5 mg 1X ONCE NEB 11/05/16 19:00 11/05/16 19:01 DC 11/05/16 19:22 Furosemide (Lasix) 40 mg 1X ONCE IVP 7/14/17 20:15 11/05/16 20:16 DC 11/05/16 20:18 Furosemide (Lasix) 40 mg BID92 IVP 11/06/16 09:00 11/06/16 08:53 Albuterol/ Ipratropium (Duoneb) 3 ml RTQID NEB 11/05/16 21:00 11/06/16 07:08 Amlodipine Besylate (Norvasc) 10 mg DAILY PO 11/06/16 09:00 11/06/16 08:55 Clopidogrel Bisulfate (Plavix) 75 mg DAILY PO 11/06/16 09:00 11/06/16 08:55 Diltiazem HCl (Cardizem 24hr Cd) 240 mg DAILY PO 11/06/16 09:00 11/06/16 08:54 Budesonide (Pulmicort) 0.5 mg RTBID NEB 11/05/16 21:00 11/06/16 07:08 Isosorbide Mononitrate (Imdur) 120 mg DAILY PO 11/06/16 09:00 11/06/16 08:54 Labetalol HCl (Normodyne) 10 mg PRN Q2HR PRN IVP HYPERTENSION, SEE COMMENTS 11/06/16 01:15 11/06/16 04:40 ALLERGIES ALLERGIES: Coded Allergies: lisinopril (Verified Allergy, Severe, Anaphylaxis, 09/30/16) Emergent Intubation 07/12/16. ROS Review of System limited, poor historian, see HPI PHYSICAL EXAM General: Alert, Oriented X3, Cooperative, No acute distress HEENT: Atraumatic, Mucous membr. moist/pink Lungs: Other (basilar crackles) Heart: Regular rate (SR), Normal S1, Normal S2, Other (3/6 systolic murmur to LLS border) Abdomen: Soft, No tenderness Extremities: No cyanosis, Other (3+ bilateral LE pitting edema at dependent position) Skin: No breakdown, Other (right heel wound) Neuro: Normal speech, Sensation intact Psych/Mental Status: Mental status NL, Mood NL MUSCULOSKELETAL: Osteoarthritic changes both hands VITALS VITALS Vital Signs Date Time Temp Pulse Resp B/P (MAP) Pulse Ox O2 Delivery O2 Flow Rate FiO2 11/06/16 08:55 80 168/84 11/06/16 08:00 Nasal Cannula 3.0 11/06/16 07:09 97 11/06/16 03:44 30 11/06/16 03:00 98.1 98.1 LABS Lab: Laboratory Tests Test 11/05/16 18:15 11/05/16 18:25 11/05/16 19:42 11/06/16 00:42 Erythrocyte Sedimentation Rate 58 (0-15) D-Dimer (Lizbeth) 3.13 ug/mlFEU (0.00-0.50) White Blood Count 6.6 x10^3/uL (4.0-11.0) Red Blood Count 3.51 x10^6/uL (4.30-5.70) Hemoglobin 9.5 g/dL (13.0-17.5) Hematocrit 30.3 % (39.0-53.0) Mean Corpuscular Volume 86 fL (79-100) Mean Corpuscular Hemoglobin 27 pg (25-35) Mean Corpuscular Hemoglobin Concent 31 g/dL (31-37) Red Cell Distribution Width 16.5 % (11.5-14.5) Platelet Count 260 x10^3/uL (140-400) Neutrophils (%) (Auto) 71 % (31-73) Lymphocytes (%) (Auto) 18 % (24-48) Monocytes (%) (Auto) 9 % (0-9) Eosinophils (%) (Auto) 2 % (0-3) Basophils (%) (Auto) 1 % (0-3) Neutrophils # (Auto) 4.7 x10^3uL (1.8-7.7) Lymphocytes # (Auto) 1.2 x10^3/uL (1.0-4.8) Monocytes # (Auto) 0.6 x10^3/uL (0.0-1.1) Eosinophils # (Auto) 0.1 x10^3/uL (0.0-0.7) Basophils # (Auto) 0.0 x10^3/uL (0.0-0.2) Prothrombin Time 12.8 SEC (11.7-14.0) Prothromb Time International Ratio 1.0 (0.8-1.1) Sodium Level 146 mmol/L (136-145) Potassium Level 4.8 mmol/L (3.5-5.1) Chloride Level 106 mmol/L (98-107) Carbon Dioxide Level 33 mmol/L (21-32) Anion Gap 7 (6-14) Blood Urea Nitrogen 28 mg/dL (8-26) Creatinine 1.9 mg/dL (0.7-1.3) Estimated GFR (Cockcroft-Gault) 42.1 BUN/Creatinine Ratio 15 (6-20) Glucose Level 126 mg/dL (70-99) Calcium Level 8.2 mg/dL (8.5-10.1) Total Bilirubin 0.2 mg/dL (0.2-1.0) Aspartate Amino Transf (AST/SGOT) 17 U/L (15-37) Alanine Aminotransferase (ALT/SGPT) 18 U/L (16-63) Alkaline Phosphatase 85 U/L (46-116) Creatine Kinase 75 U/L (39-308) Troponin I Quantitative 0.024 ng/mL (0.000-0.055) FF-Msd-C-Type Natriuretic Peptide 66746 pg/mL (0-124) Total Protein 6.9 g/dL (6.4-8.2) Albumin 3.2 g/dL (3.4-5.0) Albumin/Globulin Ratio 0.9 (1.0-1.7) Urine Collection Type Unknown Urine Color Yellow Urine Clarity Clear Urine pH 5.5 Urine Specific [place] 1.010 Urine Protein 100 mg/dL (NEG-TRACE) Urine Glucose (UA) Negative mg/dL (NEG) Urine Ketones (Stick) Negative mg/dL (NEG) Urine Blood Trace (NEG) Urine Nitrite Negative (NEG) Urine Bilirubin Negative (NEG) Urine Urobilinogen Dipstick 1.0 mg/dL (0.2 mg/dL) Urine Leukocyte Esterase Negative (NEG) Urine RBC Occ /HPF (0-2) Urine WBC 0 /HPF (0-4) Urine Squamous Epithelial Cells Few /LPF Urine Bacteria 0 /HPF (0-FEW) Urine Hyaline Casts Few /HPF Urine Mucus Mod /LPF Glucose (Fingerstick) 92 mg/dL (70-99) Test 11/06/16 08:03 Glucose (Fingerstick) 96 mg/dL (70-99) ECHOCARDIOGRAM ECHOCARDIOGRAM <Conclusion> Limited echo to assess LV function. The left ventricular systolic function is normal. The Ejection Fraction is 55%. There is normal LV segmental wall motion. The left atrium is mildly dilated. Pacer wire noted in right atrium and right ventricle. There is no evidence of significant pericardial effusion. DATE: 10/04/16 1444 <Conclusion> The left ventricular systolic function is normal. The Ejection Fraction is 70%. There is normal LV segmental wall motion. Transmitral Doppler flow pattern appears to be Grade I-abnormal relaxation pattern. Moderate tricuspid regurgitation. The pulmonary artery systolic pressure is estimated at 70 mmHg. There is severe pulmonary hypertension. There is no evidence of significant pericardial effusion. DATE: 07/14/16 1519 HEART CATH HEART CATH CORONARY ANGIOGRAPHY: LM is a large caliber vessel with normal angiographic appearance. LAD is a large caliber vessel with mild luminal irregularities. D1 is a moderate caliber vessel with normal angiographic apeparance. LCx is a moderate caliber non-dominant vessel with mild luminal irregularities. OM1 is a moderate caliber vessel with normal angiographic appearance. RCA is a large caliber dominant vessel with normal angiographic appearance. RPDA and RPL are moderate caliber vessels with normal angiographic appearance. Conclusion No significant obstructive coronary disease. Normal LV systolic function. Recommendations Aggressive Medical Therapy DATE: 07/15/16 1400 ASSESSMENT/PLAN ASSESSMENT/PLAN 1. Acute on chronic diastolic CHF: multifactorial with one culprit of uncontrolled HTN 2. Accelerated HTN: labile 3. Acute on chronic respiratory failure with COPD/pulmonary HTN 4. CKD 5. 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 Cardiac testings current, see above 2. Continue home current regimen and will add hydralazine. 3. Continue with IV lasix. 4. Continue secondary prevention Problems: SHIVA JEREZ APRN Nov 06, 2016 10:43
--- NOTE | 2016-11-06 13:26 | PDOC2 ---
CONSULT Date of Consult Date of Consult DATE: 11/06/16 TIME: 13:21 Reason for Consult Reason for Consult: dyspnea Referring Physician Referring Physician: Dr Lira Identification/Chief Complaint Chief Complaint dyspnea Problems: History of Present Illness Reason for Visit: 76 y.o AA male known to me, complicated past medical most significant for PE and DVT with significant bleeding issues when placed on AC so not on any AC . He is s/p IVC filter in place, LAst admitted here 1 month ago for hypoglycemia, VQ and US legs showed NO new DVt or PE at that time, Did well in [facility] but ran out of SNU days hence dcd to home and actually was on hospice until this admit. Sats 81%, CXR congestion, signif pitting edema, more than usual;, Rt heel ulcer/ wound, DM 2 labile with hypoglycemia last admission,Also recent PAD vasc sx and had OP ff up last week and was told everything is fine On face mask, BNP elevated, CXR edema, wounds etc Admit for diuresis. no DVT on dopplers. on 3 litres. no cough. no CP. no N/VD Past Medical History Cardiovascular: CAD, HTN, Hyperlipidemia, Other Pulmonary: COPD, Pulmonary embolus, Other GI: Other Heme/Onc: Anemia NOS, Other Hepatobiliary: No pertinent hx Psych: No pertinent hx Musculoskeletal: Osteoarthritis Rheumatologic: No pertinent hx Infectious disease: Other Renal/: Chronic renal insuff Endocrine: Diabetes Past Surgical History Past Surgical History: Other Family History Family History: No Significant, Hypertension Social History No ALCOHOL: none Drugs: None Lives: with Family Current Problem List Problem List Problems Medical Problems: (1) Congestive heart failure Status: Acute Current Medications Current Medications Current Medications Albuterol Sulfate (Ventolin Neb Soln) 10 mg 1X ONCE CONT NEB Last administered on 11/05/16 19:22; Start 11/05/16 at 19:00; Stop 11/05/16 at 19:01 ; Status DC Ipratropium [place] (Atrovent) 0.5 mg 1X ONCE NEB Last administered on 19:22; Start 11/05/16 at 19:00; Stop 11/05/16 at 19:01; Status DC Furosemide (Lasix) 40 mg 1X ONCE IVP Last administered on 11/05/16 20:18; Start 11/05/16 at 20:15; Stop 11/05/16 at 20:16; Status DC Ondansetron HCl (Zofran) 4 mg PRN Q8HRS PRN IV NAUSEA/VOMITING; Start 11/05/16 at 20:15; Stop 11/05/16 at 20:23; Status DC Furosemide (Lasix) 40 mg BID92 IVP Last administered on 11/06/16 08:53; Start 11/06/16 at 09:00 Ondansetron HCl (Zofran) 4 mg PRN Q6HRS PRN IV NAUSEA/VOMITING; Start 11/05/16 at 20:20; Stop 11/06/16 at 20:19 Insulin Aspart (NovoLOG) 0-7 UNITS TIDWMEALS SQ ; Start 11/05/16 at 21:00 Dextrose (Dextrose 50%-Water Syringe) 12.5 gm PRN Q15MIN PRN IV SEE COMMENTS; Start 11/05/16 at 20:30 Albuterol/ Ipratropium (Duoneb) 3 ml RTQID NEB Last administered on 11/06/16 11:31; Start 11/05/16 at 21:00 Amlodipine Besylate (Norvasc) 10 mg DAILY PO Last administered on 11/06/16 08: 55; Start 11/06/16 at 09:00 Atorvastatin Calcium (Lipitor) 40 mg HS PO ; Start 11/05/16 at 21:00 Clopidogrel Bisulfate (Plavix) 75 mg DAILY PO Last administered on 11/06/16 08 :55; Start 11/06/16 at 09:00 Diltiazem HCl (Cardizem 24hr Cd) 240 mg DAILY PO Last administered on 08:54; Start 11/06/16 at 09:00 Nitroglycerin (Nitrostat) 0.4 mg PRN Q5MIN PRN SL CHEST PAIN; Start 11/05/16 at 20:30 Non-Formulary Medication 2 puff BID IH ; Start 11/05/16 at 21:00; Status UNV Budesonide (Pulmicort) 0.5 mg RTBID NEB Last administered on 11/06/16 07:08; Start 11/05/16 at 21:00 Insulin Detemir (Levemir) 10 units QHS SQ ; Start 11/05/16 at 21:00 Isosorbide Mononitrate (Imdur) 120 mg DAILY PO Last administered on 11/06/16 08:54; Start 11/06/16 at 09:00 Sodium Chloride 1,000 ml @ 1,000 mls/hr 1X ONCE IV ; Start 11/05/16 at 21:30; Stop 11/05/16 at 22:29; Status DC Labetalol HCl (Normodyne) 10 mg PRN Q2HR PRN IVP HYPERTENSION, SEE COMMENTS Last administered on 11/06/16 04:40; Start 11/06/16 at 01:15 Hydralazine HCl (Apresoline) 50 mg TID PO Last administered on 11/06/16 12:45 ; Start 11/06/16 at 11:00 Active Scripts Active Norvasc (Amlodipine Besylate) 10 Mg Tablet 10 Mg PO DAILY 30 Days Levemir (Insulin Detemir) 100 Unit/1 Ml Vial 10 Unit SQ QHS 30 Days Lasix (Furosemide) 40 Mg Tablet 1 Tab PO DAILY Plavix (Clopidogrel Bisulfate) 75 Mg Tablet 1 Tab PO DAILY Reported Advair 100-50 Diskus (Fluticasone/Salmeterol) 1 Each Disk.w.dev 1 Puff IH BID Symbicort 160-4.5 Mcg Inhaler (Budesonide/Formoterol Fumarate) 10.2 Gm Hfa.aer.ad 2 Puff IH BID Isosorbide Mononitrate Er (Isosorbide Mononitrate) 120 Mg Tab.er.24h 120 Mg PO DAILY Diltiazem 24HR Cd (Diltiazem Hcl) 240 Mg Cap.er.24h 240 Mg PO DAILY NITROGLYCERIN SubLingual (Nitroglycerin) 0.4 Mg Tab.subl 0.4 Mg SL PRN Q5MIN PRN Atorvastatin Calcium 40 Mg Tablet 40 Mg PO HS Allergies Allergies: Coded Allergies: lisinopril (Verified Allergy, Severe, Anaphylaxis, 09/30/16) Emergent Intubation 07/12/16. ROS Review of System as discussed in my history of present illness otherwise noncontributory 12 point system review was obtained Physical Exam General: Alert Heart: Regular rate Abdomen: Normal bowel sounds Extremities: No clubbing, Other (2+edema) Skin: No rashes Vitals VITALS Vital Signs Date Time Temp Pulse Resp B/P (MAP) Pulse Ox O2 Delivery O2 Flow Rate FiO2 7/15/17 12:45 71 141/79 11/06/16 11:32 93 Nasal Cannula 2.0 11/06/16 11:00 97.5 16 97.5 Labs Labs Laboratory Tests Test 11/05/16 18:15 11/05/16 18:25 11/05/16 19:42 11/06/16 00:42 Erythrocyte Sedimentation Rate 58 (0-15) D-Dimer (Lizbeth) 3.13 ug/mlFEU (0.00-0.50) White Blood Count 6.6 x10^3/uL (4.0-11.0) Red Blood Count 3.51 x10^6/uL (4.30-5.70) Hemoglobin 9.5 g/dL (13.0-17.5) Hematocrit 30.3 % (39.0-53.0) Mean Corpuscular Volume 86 fL (79-100) Mean Corpuscular Hemoglobin 27 pg (25-35) Mean Corpuscular Hemoglobin Concent 31 g/dL (31-37) Red Cell Distribution Width 16.5 % (11.5-14.5) Platelet Count 260 x10^3/uL (140-400) Neutrophils (%) (Auto) 71 % (31-73) Lymphocytes (%) (Auto) 18 % (24-48) Monocytes (%) (Auto) 9 % (0-9) Eosinophils (%) (Auto) 2 % (0-3) Basophils (%) (Auto) 1 % (0-3) Neutrophils # (Auto) 4.7 x10^3uL (1.8-7.7) Lymphocytes # (Auto) 1.2 x10^3/uL (1.0-4.8) Monocytes # (Auto) 0.6 x10^3/uL (0.0-1.1) Eosinophils # (Auto) 0.1 x10^3/uL (0.0-0.7) Basophils # (Auto) 0.0 x10^3/uL (0.0-0.2) Prothrombin Time 12.8 SEC (11.7-14.0) Prothromb Time International Ratio 1.0 (0.8-1.1) Sodium Level 146 mmol/L (136-145) Potassium Level 4.8 mmol/L (3.5-5.1) Chloride Level 106 mmol/L (98-107) Carbon Dioxide Level 33 mmol/L (21-32) Anion Gap 7 (6-14) Blood Urea Nitrogen 28 mg/dL (8-26) Creatinine 1.9 mg/dL (0.7-1.3) Estimated GFR (Cockcroft-Gault) 42.1 BUN/Creatinine Ratio 15 (6-20) Glucose Level 126 mg/dL (70-99) Calcium Level 8.2 mg/dL (8.5-10.1) Total Bilirubin 0.2 mg/dL (0.2-1.0) Aspartate Amino Transf (AST/SGOT) 17 U/L (15-37) Alanine Aminotransferase (ALT/SGPT) 18 U/L (16-63) Alkaline Phosphatase 85 U/L (46-116) Creatine Kinase 75 U/L (39-308) Troponin I Quantitative 0.024 ng/mL (0.000-0.055) WG-Ekm-Z-Type Natriuretic Peptide 61974 pg/mL (0-124) Total Protein 6.9 g/dL (6.4-8.2) Albumin 3.2 g/dL (3.4-5.0) Albumin/Globulin Ratio 0.9 (1.0-1.7) Urine Collection Type Unknown Urine Color Yellow Urine Clarity Clear Urine pH 5.5 Urine Specific [place] 1.010 Urine Protein 100 mg/dL (NEG-TRACE) Urine Glucose (UA) Negative mg/dL (NEG) Urine Ketones (Stick) Negative mg/dL (NEG) Urine Blood Trace (NEG) Urine Nitrite Negative (NEG) Urine Bilirubin Negative (NEG) Urine Urobilinogen Dipstick 1.0 mg/dL (0.2 mg/dL) Urine Leukocyte Esterase Negative (NEG) Urine RBC Occ /HPF (0-2) Urine WBC 0 /HPF (0-4) Urine Squamous Epithelial Cells Few /LPF Urine Bacteria 0 /HPF (0-FEW) Urine Hyaline Casts Few /HPF Urine Mucus Mod /LPF Glucose (Fingerstick) 92 mg/dL (70-99) Test 11/06/16 08:03 11/06/16 12:13 Glucose (Fingerstick) 96 mg/dL (70-99) 118 mg/dL (70-99) Laboratory Tests Test 7/14/17 18:15 11/05/16 18:25 11/05/16 19:42 11/06/16 00:42 Erythrocyte Sedimentation Rate 58 (0-15) D-Dimer (Lizbeth) 3.13 ug/mlFEU (0.00-0.50) White Blood Count 6.6 x10^3/uL (4.0-11.0) Red Blood Count 3.51 x10^6/uL (4.30-5.70) Hemoglobin 9.5 g/dL (13.0-17.5) Hematocrit 30.3 % (39.0-53.0) Mean Corpuscular Volume 86 fL (79-100) Mean Corpuscular Hemoglobin 27 pg (25-35) Mean Corpuscular Hemoglobin Concent 31 g/dL (31-37) Red Cell Distribution Width 16.5 % (11.5-14.5) Platelet Count 260 x10^3/uL (140-400) Neutrophils (%) (Auto) 71 % (31-73) Lymphocytes (%) (Auto) 18 % (24-48) Monocytes (%) (Auto) 9 % (0-9) Eosinophils (%) (Auto) 2 % (0-3) Basophils (%) (Auto) 1 % (0-3) Neutrophils # (Auto) 4.7 x10^3uL (1.8-7.7) Lymphocytes # (Auto) 1.2 x10^3/uL (1.0-4.8) Monocytes # (Auto) 0.6 x10^3/uL (0.0-1.1) Eosinophils # (Auto) 0.1 x10^3/uL (0.0-0.7) Basophils # (Auto) 0.0 x10^3/uL (0.0-0.2) Prothrombin Time 12.8 SEC (11.7-14.0) Prothromb Time International Ratio 1.0 (0.8-1.1) Sodium Level 146 mmol/L (136-145) Potassium Level 4.8 mmol/L (3.5-5.1) Chloride Level 106 mmol/L (98-107) Carbon Dioxide Level 33 mmol/L (21-32) Anion Gap 7 (6-14) Blood Urea Nitrogen 28 mg/dL (8-26) Creatinine 1.9 mg/dL (0.7-1.3) Estimated GFR (Cockcroft-Gault) 42.1 BUN/Creatinine Ratio 15 (6-20) Glucose Level 126 mg/dL (70-99) Calcium Level 8.2 mg/dL (8.5-10.1) Total Bilirubin 0.2 mg/dL (0.2-1.0) Aspartate Amino Transf (AST/SGOT) 17 U/L (15-37) Alanine Aminotransferase (ALT/SGPT) 18 U/L (16-63) Alkaline Phosphatase 85 U/L (46-116) Creatine Kinase 75 U/L (39-308) Troponin I Quantitative 0.024 ng/mL (0.000-0.055) HY-Xpi-T-Type Natriuretic Peptide 32255 pg/mL (0-124) Total Protein 6.9 g/dL (6.4-8.2) Albumin 3.2 g/dL (3.4-5.0) Albumin/Globulin Ratio 0.9 (1.0-1.7) Urine Collection Type Unknown Urine Color Yellow Urine Clarity Clear Urine pH 5.5 Urine Specific [place] 1.010 Urine Protein 100 mg/dL (NEG-TRACE) Urine Glucose (UA) Negative mg/dL (NEG) Urine Ketones (Stick) Negative mg/dL (NEG) Urine Blood Trace (NEG) Urine Nitrite Negative (NEG) Urine Bilirubin Negative (NEG) Urine Urobilinogen Dipstick 1.0 mg/dL (0.2 mg/dL) Urine Leukocyte Esterase Negative (NEG) Urine RBC Occ /HPF (0-2) Urine WBC 0 /HPF (0-4) Urine Squamous Epithelial Cells Few /LPF Urine Bacteria 0 /HPF (0-FEW) Urine Hyaline Casts Few /HPF Urine Mucus Mod /LPF Glucose (Fingerstick) 92 mg/dL (70-99) Test 11/06/16 08:03 11/06/16 12:13 Glucose (Fingerstick) 96 mg/dL (70-99) 118 mg/dL (70-99) Assessment/Plan Assessment/Plan Impression 1. Dyspnea secondary to acute on chronic diastolic heart failure. 2. Lower extremity edema 3. History of previous pulmonary embolism and deep vein thrombosis. IVC filter. He was not a candidate for long-term anticoagulation and it was discontinued patient had passed 2 imaging studies and it has shown no evidence of any recurrent pulmonary embolism 4. COPD 5. Chronic diastolic heart failure. Recommendation 1. Continue diuresis 2. Continue present supplemental oxygen 3. Clinically I do not see a need for any further thromboembolic disease workup 4. Hospice reevaluation Discussed with nurse IVANA COX MD Nov 06, 2016 13:26
[2016-11-06] MEDS ORDERED: ONDANSETRON PF 4 MG/2 ML VIAL. IV PRN (14:30)
[2016-11-06] MEDS ORDERED: DOCUSATE SODIUM 100 MG CAPSULE. PO PRN (14:30)
[2016-11-06] MEDS ORDERED: ACETAMINOPHEN 325 MG TABLET. PO PRN (14:30)
[2016-11-06] MEDS ORDERED: traMADol 50 MG TABLET PO PRN (14:30)
[2016-11-06] MEDS ORDERED: hydrALAZINE 20 MG/ML VIAL. IVP PRN (14:30)
[2016-11-06] MEDS ORDERED: MORPHINE SULFATE 2 MG/ML DISP.SYRIN. IV PRN (14:30)
--- NOTE | 2016-11-06 14:30 | PDOC ---
PROGRESS NOTES Chief Complaint Chief Complaint 1. dyspnea with diastolic CHF exacerbatin, PHTN 2. Acute hypoxic respi failure, hx PE, hx DVT and BLEEDINg if on AC 3 Diabetic wound, heel wound 4. 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 Mod PCM 8. High fall risk 9. Gen weakness 10/ sp R toe ampuitations 11-. s./p fem pop bypass, R IFC filter plan: fu with card, pulm on lasix 40mg iv bid duoneb dvt ppx PAT consult, since h/o hospice , now [facility] wound care consult History of Present Illness History of Present Illness sob slightly better, very weak, bed bound on NC 2 l Vitals Vitals Vital Signs Date Time Temp Pulse Resp B/P (MAP) Pulse Ox O2 Delivery O2 Flow Rate FiO2 11/06/16 12:45 71 141/79 11/06/16 11:32 93 Nasal Cannula 2.0 11/06/16 11:00 97.5 16 97.5 Physical Exam General: Alert Heart: Regular rate, Normal S1, Normal S2 Lungs: Clear, Other Abdomen: Normal bowel sounds Extremities: No clubbing, Other (2+edema) Skin: No rashes Labs LABS Laboratory Tests Test 11/05/16 18:15 11/05/16 18:25 11/05/16 19:42 11/06/16 00:42 Erythrocyte Sedimentation Rate 58 (0-15) D-Dimer ([place]iz[place]) 3.13 ug/mlFEU (0.00-0.50) White Blood Count 6.6 x10^3/uL (4.0-11.0) Red Blood Count 3.51 x10^6/uL (4.30-5.70) Hemoglobin 9.5 g/dL (13.0-17.5) Hematocrit 30.3 % (39.0-53.0) Mean Corpuscular Volume 86 fL (79-100) Mean Corpuscular Hemoglobin 27 pg (25-35) Mean Corpuscular Hemoglobin Concent 31 g/dL (31-37) Red Cell Distribution Width 16.5 % (11.5-14.5) Platelet Count 260 x10^3/uL (140-400) Neutrophils (%) (Auto) 71 % (31-73) Lymphocytes (%) (Auto) 18 % (24-48) Monocytes (%) (Auto) 9 % (0-9) Eosinophils (%) (Auto) 2 % (0-3) Basophils (%) (Auto) 1 % (0-3) Neutrophils # (Auto) 4.7 x10^3uL (1.8-7.7) Lymphocytes # (Auto) 1.2 x10^3/uL (1.0-4.8) Monocytes # (Auto) 0.6 x10^3/uL (0.0-1.1) Eosinophils # (Auto) 0.1 x10^3/uL (0.0-0.7) Basophils # (Auto) 0.0 x10^3/uL (0.0-0.2) Prothrombin Time 12.8 SEC (11.7-14.0) Prothromb Time International Ratio 1.0 (0.8-1.1) Sodium Level 146 mmol/L (136-145) Potassium Level 4.8 mmol/L (3.5-5.1) Chloride Level 106 mmol/L (98-107) Carbon Dioxide Level 33 mmol/L (21-32) Anion Gap 7 (6-14) Blood Urea Nitrogen 28 mg/dL (8-26) Creatinine 1.9 mg/dL (0.7-1.3) Estimated GFR (Cockcroft-Gault) 42.1 BUN/Creatinine Ratio 15 (6-20) Glucose Level 126 mg/dL (70-99) Calcium Level 8.2 mg/dL (8.5-10.1) Total Bilirubin 0.2 mg/dL (0.2-1.0) Aspartate Amino Transf (AST/SGOT) 17 U/L (15-37) Alanine Aminotransferase (ALT/SGPT) 18 U/L (16-63) Alkaline Phosphatase 85 U/L (46-116) Creatine Kinase 75 U/L (39-308) Troponin I Quantitative 0.024 ng/mL (0.000-0.055) AS-Qxq-T-Type Natriuretic Peptide 20810 pg/mL (0-124) Total Protein 6.9 g/dL (6.4-8.2) Albumin 3.2 g/dL (3.4-5.0) Albumin/Globulin Ratio 0.9 (1.0-1.7) Urine Collection Type Unknown Urine Color Yellow Urine Clarity Clear Urine pH 5.5 Urine Specific [place] 1.010 Urine Protein 100 mg/dL (NEG-TRACE) Urine Glucose (UA) Negative mg/dL (NEG) Urine Ketones (Stick) Negative mg/dL (NEG) Urine Blood Trace (NEG) Urine Nitrite Negative (NEG) Urine Bilirubin Negative (NEG) Urine Urobilinogen Dipstick 1.0 mg/dL (0.2 mg/dL) Urine Leukocyte Esterase Negative (NEG) Urine RBC Occ /HPF (0-2) Urine WBC 0 /HPF (0-4) Urine Squamous Epithelial Cells Few /LPF Urine Bacteria 0 /HPF (0-FEW) Urine Hyaline Casts Few /HPF Urine Mucus Mod /LPF Glucose (Fingerstick) 92 mg/dL (70-99) Test 11/06/16 08:03 11/06/16 12:13 Glucose (Fingerstick) 96 mg/dL (70-99) 118 mg/dL (70-99) Review of Systems Review of Systems no fever, chills chest pain Assessment and Plan Assessmemt and Plan Problems Medical Problems: (1) Congestive heart failure Status: Acute Problems: Comment Review of Relevant I have reviewed the following items valerie (where applicable) has been applied. Labs Laboratory Tests Test 11/05/16 18:15 11/05/16 18:25 11/05/16 19:42 11/06/16 00:42 Erythrocyte Sedimentation Rate 58 (0-15) D-Dimer (Lizbeth) 3.13 ug/mlFEU (0.00-0.50) White Blood Count 6.6 x10^3/uL (4.0-11.0) Red Blood Count 3.51 x10^6/uL (4.30-5.70) Hemoglobin 9.5 g/dL (13.0-17.5) Hematocrit 30.3 % (39.0-53.0) Mean Corpuscular Volume 86 fL (79-100) Mean Corpuscular Hemoglobin 27 pg (25-35) Mean Corpuscular Hemoglobin Concent 31 g/dL (31-37) Red Cell Distribution Width 16.5 % (11.5-14.5) Platelet Count 260 x10^3/uL (140-400) Neutrophils (%) (Auto) 71 % (31-73) Lymphocytes (%) (Auto) 18 % (24-48) Monocytes (%) (Auto) 9 % (0-9) Eosinophils (%) (Auto) 2 % (0-3) Basophils (%) (Auto) 1 % (0-3) Neutrophils # (Auto) 4.7 x10^3uL (1.8-7.7) Lymphocytes # (Auto) 1.2 x10^3/uL (1.0-4.8) Monocytes # (Auto) 0.6 x10^3/uL (0.0-1.1) Eosinophils # (Auto) 0.1 x10^3/uL (0.0-0.7) Basophils # (Auto) 0.0 x10^3/uL (0.0-0.2) Prothrombin Time 12.8 SEC (11.7-14.0) Prothromb Time International Ratio 1.0 (0.8-1.1) Sodium Level 146 mmol/L (136-145) Potassium Level 4.8 mmol/L (3.5-5.1) Chloride Level 106 mmol/L (98-107) Carbon Dioxide Level 33 mmol/L (21-32) Anion Gap 7 (6-14) Blood Urea Nitrogen 28 mg/dL (8-26) Creatinine 1.9 mg/dL (0.7-1.3) Estimated GFR (Cockcroft-Gault) 42.1 BUN/Creatinine Ratio 15 (6-20) Glucose Level 126 mg/dL (70-99) Calcium Level 8.2 mg/dL (8.5-10.1) Total Bilirubin 0.2 mg/dL (0.2-1.0) Aspartate Amino Transf (AST/SGOT) 17 U/L (15-37) Alanine Aminotransferase (ALT/SGPT) 18 U/L (16-63) Alkaline Phosphatase 85 U/L (46-116) Creatine Kinase 75 U/L (39-308) Troponin I Quantitative 0.024 ng/mL (0.000-0.055) DC-Fee-M-Type Natriuretic Peptide 99139 pg/mL (0-124) Total Protein 6.9 g/dL (6.4-8.2) Albumin 3.2 g/dL (3.4-5.0) Albumin/Globulin Ratio 0.9 (1.0-1.7) Urine Collection Type Unknown Urine Color Yellow Urine Clarity Clear Urine pH 5.5 Urine Specific [place] 1.010 Urine Protein 100 mg/dL (NEG-TRACE) Urine Glucose (UA) Negative mg/dL (NEG) Urine Ketones (Stick) Negative mg/dL (NEG) Urine Blood Trace (NEG) Urine Nitrite Negative (NEG) Urine Bilirubin Negative (NEG) Urine Urobilinogen Dipstick 1.0 mg/dL (0.2 mg/dL) Urine Leukocyte Esterase Negative (NEG) Urine RBC Occ /HPF (0-2) Urine WBC 0 /HPF (0-4) Urine Squamous Epithelial Cells Few /LPF Urine Bacteria 0 /HPF (0-FEW) Urine Hyaline Casts Few /HPF Urine Mucus Mod /LPF Glucose (Fingerstick) 92 mg/dL (70-99) Test 11/06/16 08:03 11/06/16 12:13 Glucose (Fingerstick) 96 mg/dL (70-99) 118 mg/dL (70-99) Laboratory Tests Test 11/05/16 18:15 11/05/16 18:25 11/05/16 19:42 11/06/16 00:42 Erythrocyte Sedimentation Rate 58 (0-15) D-Dimer (Lizbeth) 3.13 ug/mlFEU (0.00-0.50) White Blood Count 6.6 x10^3/uL (4.0-11.0) Red Blood Count 3.51 x10^6/uL (4.30-5.70) Hemoglobin 9.5 g/dL (13.0-17.5) Hematocrit 30.3 % (39.0-53.0) Mean Corpuscular Volume 86 fL (79-100) Mean Corpuscular Hemoglobin 27 pg (25-35) Mean Corpuscular Hemoglobin Concent 31 g/dL (31-37) Red Cell Distribution Width 16.5 % (11.5-14.5) Platelet Count 260 x10^3/uL (140-400) Neutrophils (%) (Auto) 71 % (31-73) Lymphocytes (%) (Auto) 18 % (24-48) Monocytes (%) (Auto) 9 % (0-9) Eosinophils (%) (Auto) 2 % (0-3) Basophils (%) (Auto) 1 % (0-3) Neutrophils # (Auto) 4.7 x10^3uL (1.8-7.7) Lymphocytes # (Auto) 1.2 x10^3/uL (1.0-4.8) Monocytes # (Auto) 0.6 x10^3/uL (0.0-1.1) Eosinophils # (Auto) 0.1 x10^3/uL (0.0-0.7) Basophils # (Auto) 0.0 x10^3/uL (0.0-0.2) Prothrombin Time 12.8 SEC (11.7-14.0) Prothromb Time International Ratio 1.0 (0.8-1.1) Sodium Level 146 mmol/L (136-145) Potassium Level 4.8 mmol/L (3.5-5.1) Chloride Level 106 mmol/L (98-107) Carbon Dioxide Level 33 mmol/L (21-32) Anion Gap 7 (6-14) Blood Urea Nitrogen 28 mg/dL (8-26) Creatinine 1.9 mg/dL (0.7-1.3) Estimated GFR (Cockcroft-Gault) 42.1 BUN/Creatinine Ratio 15 (6-20) Glucose Level 126 mg/dL (70-99) Calcium Level 8.2 mg/dL (8.5-10.1) Total Bilirubin 0.2 mg/dL (0.2-1.0) Aspartate Amino Transf (AST/SGOT) 17 U/L (15-37) Alanine Aminotransferase (ALT/SGPT) 18 U/L (16-63) Alkaline Phosphatase 85 U/L (46-116) Creatine Kinase 75 U/L (39-308) Troponin I Quantitative 0.024 ng/mL (0.000-0.055) YD-Ips-W-Type Natriuretic Peptide 40885 pg/mL (0-124) Total Protein 6.9 g/dL (6.4-8.2) Albumin 3.2 g/dL (3.4-5.0) Albumin/Globulin Ratio 0.9 (1.0-1.7) Urine Collection Type Unknown Urine Color Yellow Urine Clarity Clear Urine pH 5.5 Urine Specific [place] 1.010 Urine Protein 100 mg/dL (NEG-TRACE) Urine Glucose (UA) Negative mg/dL (NEG) Urine Ketones (Stick) Negative mg/dL (NEG) Urine Blood Trace (NEG) Urine Nitrite Negative (NEG) Urine Bilirubin Negative (NEG) Urine Urobilinogen Dipstick 1.0 mg/dL (0.2 mg/dL) Urine Leukocyte Esterase Negative (NEG) Urine RBC Occ /HPF (0-2) Urine WBC 0 /HPF (0-4) Urine Squamous Epithelial Cells Few /LPF Urine Bacteria 0 /HPF (0-FEW) Urine Hyaline Casts Few /HPF Urine Mucus Mod /LPF Glucose (Fingerstick) 92 mg/dL (70-99) Test 11/06/16 08:03 11/06/16 12:13 Glucose (Fingerstick) 96 mg/dL (70-99) 118 mg/dL (70-99) Medications Current Medications Albuterol Sulfate (Ventolin Neb Soln) 10 mg 1X ONCE CONT NEB Last administered on 11/05/16 19:22; Start 11/05/16 at 19:00; Stop 11/05/16 at 19:01 ; Status DC Ipratropium [place] (Atrovent) 0.5 mg 1X ONCE NEB Last administered on 19:22; Start 11/05/16 at 19:00; Stop 11/05/16 at 19:01; Status DC Furosemide (Lasix) 40 mg 1X ONCE IVP Last administered on 11/05/16 20:18; Start 11/05/16 at 20:15; Stop 11/05/16 at 20:16; Status DC Ondansetron HCl (Zofran) 4 mg PRN Q8HRS PRN IV NAUSEA/VOMITING; Start 11/05/16 at 20:15; Stop 11/05/16 at 20:23; Status DC Furosemide (Lasix) 40 mg [id number] IVP Last administered on 11/06/16 08:53; Start 11/06/16 at 09:00 Ondansetron HCl (Zofran) 4 mg PRN Q6HRS PRN IV NAUSEA/VOMITING; Start 11/05/16 at 20:20; Stop 11/06/16 at 20:19 Insulin Aspart (NovoLOG) 0-7 UNITS TIDWMEALS SQ ; Start 11/05/16 at 21:00 Dextrose (Dextrose 50%-Water Syringe) 12.5 gm PRN Q15MIN PRN IV SEE COMMENTS; Start 11/05/16 at 20:30 Albuterol/ Ipratropium (Duoneb) 3 ml RTQID NEB Last administered on 11/06/16 11:31; Start 11/05/16 at 21:00 Amlodipine Besylate (Norvasc) 10 mg DAILY PO Last administered on 11/06/16 08: 55; Start 11/06/16 at 09:00 Atorvastatin Calcium (Lipitor) 40 mg HS PO ; Start 11/05/16 at 21:00 Clopidogrel Bisulfate (Plavix) 75 mg DAILY PO Last administered on 11/06/16 08 :55; Start 11/06/16 at 09:00 Diltiazem HCl (Cardizem 24hr Cd) 240 mg DAILY PO Last administered on 08:54; Start 11/06/16 at 09:00 Nitroglycerin (Nitrostat) 0.4 mg PRN Q5MIN PRN SL CHEST PAIN; Start 11/05/16 at 20:30 Non-Formulary Medication 2 puff BID IH ; Start 11/05/16 at 21:00; Status UNV Budesonide (Pulmicort) 0.5 mg RTBID NEB Last administered on 11/06/16 07:08; Start 11/05/16 at 21:00 Insulin Detemir (Levemir) 10 units QHS SQ ; Start 11/05/16 at 21:00 Isosorbide Mononitrate (Imdur) 120 mg DAILY PO Last administered on 11/06/16 08:54; Start 11/06/16 at 09:00 Sodium Chloride 1,000 ml @ 1,000 mls/hr 1X ONCE IV ; Start 11/05/16 at 21:30; Stop 11/05/16 at 22:29; Status DC Labetalol HCl (Normodyne) 10 mg PRN Q2HR PRN IVP HYPERTENSION, SEE COMMENTS Last administered on 11/06/16 04:40; Start 11/06/16 at 01:15 Hydralazine HCl (Apresoline) 50 mg TID PO Last administered on 11/06/16 12:45 ; Start 11/06/16 at 11:00 Active Scripts Active Norvasc (Amlodipine Besylate) 10 Mg Tablet 10 Mg PO DAILY 30 Days Levemir (Insulin Detemir) 100 Unit/1 Ml Vial 10 Unit SQ QHS 30 Days Lasix (Furosemide) 40 Mg Tablet 1 Tab PO DAILY Plavix (Clopidogrel Bisulfate) 75 Mg Tablet 1 Tab PO DAILY Reported Advair 100-50 Diskus (Fluticasone/Salmeterol) 1 Each Disk.w.dev 1 Puff IH BID Symbicort 160-4.5 Mcg Inhaler (Budesonide/Formoterol Fumarate) 10.2 Gm Hfa.aer.ad 2 Puff IH BID Isosorbide Mononitrate Er (Isosorbide Mononitrate) 120 Mg Tab.er.24h 120 Mg PO DAILY Diltiazem 24HR Cd (Diltiazem Hcl) 240 Mg Cap.er.24h 240 Mg PO DAILY NITROGLYCERIN SubLingual (Nitroglycerin) 0.4 Mg Tab.subl 0.4 Mg SL PRN Q5MIN PRN Atorvastatin Calcium 40 Mg Tablet 40 Mg PO HS Vitals/I & O Vital Sign - Last 24 Hours 11/05/16 11/05/16 11/05/16 11/05/16 18:16 19:15 19:25 20:18 Temp 98.6 98.6 Pulse 82 93 Resp 20 B/P (MAP) 154/84 (107) 177/107 (130) Pulse Ox 94 88 92 96 O2 Delivery Room Air Nasal Cannula Nasal Cannula Aerosol Mask O2 Flow Rate 3.0 3.0 10.0 11/05/16 11/05/16 11/05/16 11/06/16 21:07 21:30 23:20 01:35 Temp 98.0 98.1 98.0 98.1 Pulse 90 90 86 Resp 20 20 B/P (MAP) 146/79 (101) 169/87 (114) 172/83 Pulse Ox 98 94 O2 Delivery Nasal Cannula Nasal Cannula Nasal Cannula O2 Flow Rate 3.0 3.0 4.0 11/06/16 11/06/16 11/06/16 11/06/16 03:00 03:44 04:40 05:00 Temp 98.1 98.1 Pulse 82 87 84 Resp 25 30 B/P (MAP) 175/88 (117) 163/88 (113) 136/48 152/81 (104) Pulse Ox 96 95 O2 Delivery Nasal Cannula Nasal Cannula O2 Flow Rate 4.0 4.0 11/06/16 11/06/16 11/06/16 11/06/16 07:09 08:00 08:54 08:54 Pulse 80 79 B/P (MAP) 164/84 168/84 Pulse Ox 97 O2 Delivery Nasal Cannula Nasal Cannula O2 Flow Rate 4.0 3.0 11/06/16 11/06/16 11/06/16 11/06/16 08:55 11:00 11:32 12:45 Temp 97.5 97.5 Pulse 80 71 71 Resp 16 B/P (MAP) 168/84 141/74 (96) 141/79 Pulse Ox 97 93 O2 Delivery Nasal Cannula Nasal Cannula O2 Flow Rate 3.0 2.0 Intake and Output 11/05/16 11/05/16 11/06/16 15:00 23:00 07:00 Output Total 300 ml 1950 ml Balance -300 ml -1950 ml JOHN PAUL BALDWIN MD Nov 06, 2016 14:30
[2016-11-06] MEDS: ATORVASTATIN CALCIUM 40 MG TABLET. PO SCH (22:03)
[2016-11-06] MEDS: INSULIN DETEMIR 300 UNITS/3 ML INSULN.PEN. SQ SCH (22:25)
[2016-11-07 03:20] VITALS: BP 140/65
[2016-11-07 04:28] LABS: BASO # 0.1 x10^3/uL (0.0-0.2); BASO % 1 % (0-3); EOS % 4 % (0-3); HEMATOCRIT 28.6 % (39.0-53.0); HEMOGLOBIN 9.1 g/dL (13.0-17.5); LYMPH # 1.4 x10^3/uL (1.0-4.8); LYMPH % 20 % (24-48); MEAN CORPUSCULAR HEMOGLOBIN 27 pg (25-35); MEAN CORPUSCULAR HGB CONC 32 g/dL (31-37); MEAN CORPUSCULAR VOLUME 86 fL (79-100); MONO % 10 % (0-9); NEUT % 66 % (31-73); PLATELET COUNT 215 x10^3/uL (140-400); RED BLOOD COUNT 3.33 x10^6/uL (4.30-5.70); RED CELL DISTRIBUTION WIDTH 16.8 % (11.5-14.5); WHITE BLOOD COUNT 7.1 x10^3/uL (4.0-11.0)
[2016-11-07 07:00] VITALS: BP 165/77
[2016-11-07] MEDS: IPRATRPIUM/ALBUTEROL 0.5/2.5MG 3 ML NEBU. NEB SCH ×4 (07:51→19:51)
[2016-11-07] MEDS: BUDESONIDE 0.5 MG/2 ML NEBU. NEB SCH ×2 (07:51→19:51)
[2016-11-07] MEDS: INSULIN ASPART 300 UNITS/3 ML INSULN.PEN SQ SCH ×3 (08:00→17:00)
[2016-11-07 08:03] LABS: CALCIUM 8.7 mg/dL (8.5-10.1); CREATININE 1.4 mg/dL (0.7-1.3); GFR 59.9; POTASSIUM 4.4 mmol/L (3.5-5.1)
[2016-11-07] MEDS: FUROSEMIDE 40 MG/4 ML VIAL. IVP SCH ×2 (09:26→15:53)
[2016-11-07] MEDS: amLODIPine BESYLATE 10 MG TABLET PO SCH (09:27)
[2016-11-07] MEDS: ISOSORBIDE MONONITRATE ER 30 MG TAB.ER.24H PO SCH (09:27)
[2016-11-07] MEDS: CLOPIDOGREL BISULFATE 75 MG TABLET PO SCH (09:27)
[2016-11-07 11:00] VITALS: BP 145/70
--- NOTE | 2016-11-07 12:53 | PDOC ---
PULMONARY PROGRESS NOTES Subjective no soa Vitals Vital Signs Date Time Temp Pulse Resp B/P (MAP) Pulse Ox O2 Delivery O2 Flow Rate FiO2 11/07/16 11:39 98 Nasal Cannula 2.0 11/07/16 11:00 96.8 80 18 145/70 (95) 96.8 General: Alert, No acute distress HEENT: Other Lungs: Other (decrease bs) Cardiovascular: S1, S2 Abdomen: Soft, Non-tender, Other Extremities: No Edema Skin: Warm Labs Laboratory Tests Test 11/05/16 18:15 11/05/16 18:25 11/05/16 19:42 11/06/16 00:42 Erythrocyte Sedimentation Rate 58 (0-15) D-Dimer ([place]) 3.13 ug/mlFEU (0.00-0.50) White Blood Count 6.6 x10^3/uL (4.0-11.0) Red Blood Count 3.51 x10^6/uL (4.30-5.70) Hemoglobin 9.5 g/dL (13.0-17.5) Hematocrit 30.3 % (39.0-53.0) Mean Corpuscular Volume 86 fL (79-100) Mean Corpuscular Hemoglobin 27 pg (25-35) Mean Corpuscular Hemoglobin Concent 31 g/dL (31-37) Red Cell Distribution Width 16.5 % (11.5-14.5) Platelet Count 260 x10^3/uL (140-400) Neutrophils (%) (Auto) 71 % (31-73) Lymphocytes (%) (Auto) 18 % (24-48) Monocytes (%) (Auto) 9 % (0-9) Eosinophils (%) (Auto) 2 % (0-3) Basophils (%) (Auto) 1 % (0-3) Neutrophils # (Auto) 4.7 x10^3uL (1.8-7.7) Lymphocytes # (Auto) 1.2 x10^3/uL (1.0-4.8) Monocytes # (Auto) 0.6 x10^3/uL (0.0-1.1) Eosinophils # (Auto) 0.1 x10^3/uL (0.0-0.7) Basophils # (Auto) 0.0 x10^3/uL (0.0-0.2) Prothrombin Time 12.8 SEC (11.7-14.0) Prothromb Time International Ratio 1.0 (0.8-1.1) Sodium Level 146 mmol/L (136-145) Potassium Level 4.8 mmol/L (3.5-5.1) Chloride Level 106 mmol/L (98-107) Carbon Dioxide Level 33 mmol/L (21-32) Anion Gap 7 (6-14) Blood Urea Nitrogen 28 mg/dL (8-26) Creatinine 1.9 mg/dL (0.7-1.3) Estimated GFR (Cockcroft-Gault) 42.1 BUN/Creatinine Ratio 15 (6-20) Glucose Level 126 mg/dL (70-99) Calcium Level 8.2 mg/dL (8.5-10.1) Total Bilirubin 0.2 mg/dL (0.2-1.0) Aspartate Amino Transf (AST/SGOT) 17 U/L (15-37) Alanine Aminotransferase (ALT/SGPT) 18 U/L (16-63) Alkaline Phosphatase 85 U/L (46-116) Creatine Kinase 75 U/L (39-308) Troponin I Quantitative 0.024 ng/mL (0.000-0.055) PK-Qtf-C-Type Natriuretic Peptide 68064 pg/mL (0-124) Total Protein 6.9 g/dL (6.4-8.2) Albumin 3.2 g/dL (3.4-5.0) Albumin/Globulin Ratio 0.9 (1.0-1.7) Urine Collection Type Unknown Urine Color Yellow Urine Clarity Clear Urine pH 5.5 Urine Specific [place] 1.010 Urine Protein 100 mg/dL (NEG-TRACE) Urine Glucose (UA) Negative mg/dL (NEG) Urine Ketones (Stick) Negative mg/dL (NEG) Urine Blood Trace (NEG) Urine Nitrite Negative (NEG) Urine Bilirubin Negative (NEG) Urine Urobilinogen Dipstick 1.0 mg/dL (0.2 mg/dL) Urine Leukocyte Esterase Negative (NEG) Urine RBC Occ /HPF (0-2) Urine WBC 0 /HPF (0-4) Urine Squamous Epithelial Cells Few /LPF Urine Bacteria 0 /HPF (0-FEW) Urine Hyaline Casts Few /HPF Urine Mucus Mod /LPF Glucose (Fingerstick) 92 mg/dL (70-99) Test 7/15/17 08:03 11/06/16 12:13 11/06/16 16:52 11/06/16 22:08 Glucose (Fingerstick) 96 mg/dL (70-99) 118 mg/dL (70-99) 174 mg/dL (70-99) 95 mg/dL (70-99) Test 11/07/16 04:00 11/07/16 07:08 11/07/16 07:48 11/07/16 11:55 White Blood Count 7.1 x10^3/uL (4.0-11.0) Red Blood Count 3.33 x10^6/uL (4.30-5.70) Hemoglobin 9.1 g/dL (13.0-17.5) Hematocrit 28.6 % (39.0-53.0) Mean Corpuscular Volume 86 fL (79-100) Mean Corpuscular Hemoglobin 27 pg (25-35) Mean Corpuscular Hemoglobin Concent 32 g/dL (31-37) Red Cell Distribution Width 16.8 % (11.5-14.5) Platelet Count 215 x10^3/uL (140-400) Neutrophils (%) (Auto) 66 % (31-73) Lymphocytes (%) (Auto) 20 % (24-48) Monocytes (%) (Auto) 10 % (0-9) Eosinophils (%) (Auto) 4 % (0-3) Basophils (%) (Auto) 1 % (0-3) Neutrophils # (Auto) 4.7 x10^3uL (1.8-7.7) Lymphocytes # (Auto) 1.4 x10^3/uL (1.0-4.8) Monocytes # (Auto) 0.7 x10^3/uL (0.0-1.1) Eosinophils # (Auto) 0.3 x10^3/uL (0.0-0.7) Basophils # (Auto) 0.1 x10^3/uL (0.0-0.2) Sodium Level 141 mmol/L (136-145) Potassium Level 4.4 mmol/L (3.5-5.1) Chloride Level 103 mmol/L (98-107) Carbon Dioxide Level 33 mmol/L (21-32) Anion Gap 5 (6-14) Blood Urea Nitrogen 25 mg/dL (8-26) Creatinine 1.4 mg/dL (0.7-1.3) Estimated GFR (Cockcroft-Gault) 59.9 Glucose Level 57 mg/dL (70-99) Calcium Level 8.7 mg/dL (8.5-10.1) Glucose (Fingerstick) 67 mg/dL (70-99) 113 mg/dL (70-99) Laboratory Tests Test 11/06/16 16:52 11/06/16 22:08 11/07/16 04:00 11/07/16 07:08 Glucose (Fingerstick) 174 mg/dL (70-99) 95 mg/dL (70-99) White Blood Count 7.1 x10^3/uL (4.0-11.0) Red Blood Count 3.33 x10^6/uL (4.30-5.70) Hemoglobin 9.1 g/dL (13.0-17.5) Hematocrit 28.6 % (39.0-53.0) Mean Corpuscular Volume 86 fL (79-100) Mean Corpuscular Hemoglobin 27 pg (25-35) Mean Corpuscular Hemoglobin Concent 32 g/dL (31-37) Red Cell Distribution Width 16.8 % (11.5-14.5) Platelet Count 215 x10^3/uL (140-400) Neutrophils (%) (Auto) 66 % (31-73) Lymphocytes (%) (Auto) 20 % (24-48) Monocytes (%) (Auto) 10 % (0-9) Eosinophils (%) (Auto) 4 % (0-3) Basophils (%) (Auto) 1 % (0-3) Neutrophils # (Auto) 4.7 x10^3uL (1.8-7.7) Lymphocytes # (Auto) 1.4 x10^3/uL (1.0-4.8) Monocytes # (Auto) 0.7 x10^3/uL (0.0-1.1) Eosinophils # (Auto) 0.3 x10^3/uL (0.0-0.7) Basophils # (Auto) 0.1 x10^3/uL (0.0-0.2) Sodium Level 141 mmol/L (136-145) Potassium Level 4.4 mmol/L (3.5-5.1) Chloride Level 103 mmol/L (98-107) Carbon Dioxide Level 33 mmol/L (21-32) Anion Gap 5 (6-14) Blood Urea Nitrogen 25 mg/dL (8-26) Creatinine 1.4 mg/dL (0.7-1.3) Estimated GFR (Cockcroft-Gault) 59.9 Glucose Level 57 mg/dL (70-99) Calcium Level 8.7 mg/dL (8.5-10.1) Test 11/07/16 07:48 11/07/16 11:55 Glucose (Fingerstick) 67 mg/dL (70-99) 113 mg/dL (70-99) Medications Active Scripts Medications Dose Route/Sig Max Daily Dose Days Date Category Norvasc (Amlodipine Besylate) 10 Mg Tablet 10 Mg PO DAILY 30 10/07/16 Rx Levemir (Insulin Detemir) 100 Unit/1 Ml Vial 10 Unit SQ QHS 30 10/07/16 Rx Lasix (Furosemide) 40 Mg Tablet 1 Tab PO DAILY 10/07/16 Rx Plavix (Clopidogrel Bisulfate) 75 Mg Tablet 1 Tab PO DAILY 10/07/16 Rx Advair 100-50 Diskus (Fluticasone/Salmeterol) 1 Each Disk.w.dev 1 Puff IH BID 06/21/16 Reported Symbicort 160-4.5 Mcg Inhaler (Budesonide/Formoterol Fumarate) 10.2 Gm Hfa.aer.ad 2 Puff IH BID 06/21/16 Reported Isosorbide Mononitrate Er (Isosorbide Mononitrate) 120 Mg Tab.er.24h 120 Mg PO DAILY 06/21/16 Reported Diltiazem 24HR Cd (Diltiazem Hcl) 240 Mg Cap.er.24h 240 Mg PO DAILY 11/18/15 Reported NITROGLYCERIN SubLingual (Nitroglycerin) 0.4 Mg Tab.subl 0.4 Mg SL PRN Q5MIN PRN 11/18/15 Reported Atorvastatin Calcium 40 Mg Tablet 40 Mg PO HS 11/18/15 Reported Impression . 1. Dyspnea secondary to acute on chronic diastolic heart failure. 2. Lower extremity edema 3. History of previous pulmonary embolism and deep vein thrombosis. IVC filter. He was not a candidate for long-term anticoagulation and it was discontinued patient had previous 2 imaging studies and it has shown no evidence of any recurrent pulmonary embolism 4. COPD 5. Chronic diastolic heart failure. Plan . 1. Continue diuresis 2. Continue present supplemental oxygen 3. Clinically I do not see a need for any further thromboembolic disease workup 4. Hospice reevaluation IVANA COX MD Nov 07, 2016 12:52
--- NOTE | 2016-11-07 13:31 | PDOC ---
PROGRESS NOTES Chief Complaint Chief Complaint 1. dyspnea with diastolic CHF exacerbation, PHTN 2. Acute hypoxic respi failure, hx PE, hx DVT and BLEEDINg if on AC 3 Diabetic wound, heel wound 4. 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 Mod PCM 8. High fall risk 9. Gen weakness 10/ sp R toe ampuitations 11-. s./p fem pop bypass, R IFC filter plan: fu with card, pulm on lasix 40mg iv bid duoneb dvt ppx PAT consult, since h/o hospice , now [facility] wound care consult dc levemir, cont ssi History of Present Illness History of Present Illness sob slightly better, very weak, bed bound on NC 2 l his baseline bl feet wound hypoglycemia Vitals Vitals Vital Signs Date Time Temp Pulse Resp B/P (MAP) Pulse Ox O2 Delivery O2 Flow Rate FiO2 11/07/16 11:39 98 Nasal Cannula 2.0 11/07/16 11:00 96.8 80 18 145/70 (95) 96.8 Physical Exam General: Alert Heart: Regular rate, Normal S1, Normal S2 Lungs: Other Abdomen: Normal bowel sounds Extremities: No clubbing, Other (2+edema, bl feet wound) Skin: No rashes Labs LABS Laboratory Tests Test 11/06/16 16:52 11/06/16 22:08 11/07/16 04:00 11/07/16 07:08 Glucose (Fingerstick) 174 mg/dL (70-99) 95 mg/dL (70-99) White Blood Count 7.1 x10^3/uL (4.0-11.0) Red Blood Count 3.33 x10^6/uL (4.30-5.70) Hemoglobin 9.1 g/dL (13.0-17.5) Hematocrit 28.6 % (39.0-53.0) Mean Corpuscular Volume 86 fL (79-100) Mean Corpuscular Hemoglobin 27 pg (25-35) Mean Corpuscular Hemoglobin Concent 32 g/dL (31-37) Red Cell Distribution Width 16.8 % (11.5-14.5) Platelet Count 215 x10^3/uL (140-400) Neutrophils (%) (Auto) 66 % (31-73) Lymphocytes (%) (Auto) 20 % (24-48) Monocytes (%) (Auto) 10 % (0-9) Eosinophils (%) (Auto) 4 % (0-3) Basophils (%) (Auto) 1 % (0-3) Neutrophils # (Auto) 4.7 x10^3uL (1.8-7.7) Lymphocytes # (Auto) 1.4 x10^3/uL (1.0-4.8) Monocytes # (Auto) 0.7 x10^3/uL (0.0-1.1) Eosinophils # (Auto) 0.3 x10^3/uL (0.0-0.7) Basophils # (Auto) 0.1 x10^3/uL (0.0-0.2) Sodium Level 141 mmol/L (136-145) Potassium Level 4.4 mmol/L (3.5-5.1) Chloride Level 103 mmol/L (98-107) Carbon Dioxide Level 33 mmol/L (21-32) Anion Gap 5 (6-14) Blood Urea Nitrogen 25 mg/dL (8-26) Creatinine 1.4 mg/dL (0.7-1.3) Estimated GFR (Cockcroft-Gault) 59.9 Glucose Level 57 mg/dL (70-99) Calcium Level 8.7 mg/dL (8.5-10.1) Test 11/07/16 07:48 11/07/16 11:55 Glucose (Fingerstick) 67 mg/dL (70-99) 113 mg/dL (70-99) Review of Systems Review of Systems no fever, chills, sob or chest pain Assessment and Plan Assessmemt and Plan Problems Medical Problems: (1) Congestive heart failure Status: Acute Problems: Comment Review of Relevant I have reviewed the following items valerie (where applicable) has been applied. Labs Laboratory Tests Test 11/05/16 18:15 11/05/16 18:25 11/05/16 19:42 11/06/16 00:42 Erythrocyte Sedimentation Rate 58 (0-15) D-Dimer (Lizbeth) 3.13 ug/mlFEU (0.00-0.50) White Blood Count 6.6 x10^3/uL (4.0-11.0) Red Blood Count 3.51 x10^6/uL (4.30-5.70) Hemoglobin 9.5 g/dL (13.0-17.5) Hematocrit 30.3 % (39.0-53.0) Mean Corpuscular Volume 86 fL (79-100) Mean Corpuscular Hemoglobin 27 pg (25-35) Mean Corpuscular Hemoglobin Concent 31 g/dL (31-37) Red Cell Distribution Width 16.5 % (11.5-14.5) Platelet Count 260 x10^3/uL (140-400) Neutrophils (%) (Auto) 71 % (31-73) Lymphocytes (%) (Auto) 18 % (24-48) Monocytes (%) (Auto) 9 % (0-9) Eosinophils (%) (Auto) 2 % (0-3) Basophils (%) (Auto) 1 % (0-3) Neutrophils # (Auto) 4.7 x10^3uL (1.8-7.7) Lymphocytes # (Auto) 1.2 x10^3/uL (1.0-4.8) Monocytes # (Auto) 0.6 x10^3/uL (0.0-1.1) Eosinophils # (Auto) 0.1 x10^3/uL (0.0-0.7) Basophils # (Auto) 0.0 x10^3/uL (0.0-0.2) Prothrombin Time 12.8 SEC (11.7-14.0) Prothromb Time International Ratio 1.0 (0.8-1.1) Sodium Level 146 mmol/L (136-145) Potassium Level 4.8 mmol/L (3.5-5.1) Chloride Level 106 mmol/L (98-107) Carbon Dioxide Level 33 mmol/L (21-32) Anion Gap 7 (6-14) Blood Urea Nitrogen 28 mg/dL (8-26) Creatinine 1.9 mg/dL (0.7-1.3) Estimated GFR (Cockcroft-Gault) 42.1 BUN/Creatinine Ratio 15 (6-20) Glucose Level 126 mg/dL (70-99) Calcium Level 8.2 mg/dL (8.5-10.1) Total Bilirubin 0.2 mg/dL (0.2-1.0) Aspartate Amino Transf (AST/SGOT) 17 U/L (15-37) Alanine Aminotransferase (ALT/SGPT) 18 U/L (16-63) Alkaline Phosphatase 85 U/L (46-116) Creatine Kinase 75 U/L (39-308) Troponin I Quantitative 0.024 ng/mL (0.000-0.055) BC-Vot-C-Type Natriuretic Peptide 45303 pg/mL (0-124) Total Protein 6.9 g/dL (6.4-8.2) Albumin 3.2 g/dL (3.4-5.0) Albumin/Globulin Ratio 0.9 (1.0-1.7) Urine Collection Type Unknown Urine Color Yellow Urine Clarity Clear Urine pH 5.5 Urine Specific [place] 1.010 Urine Protein 100 mg/dL (NEG-TRACE) Urine Glucose (UA) Negative mg/dL (NEG) Urine Ketones (Stick) Negative mg/dL (NEG) Urine Blood Trace (NEG) Urine Nitrite Negative (NEG) Urine Bilirubin Negative (NEG) Urine Urobilinogen Dipstick 1.0 mg/dL (0.2 mg/dL) Urine Leukocyte Esterase Negative (NEG) Urine RBC Occ /HPF (0-2) Urine WBC 0 /HPF (0-4) Urine Squamous Epithelial Cells Few /LPF Urine Bacteria 0 /HPF (0-FEW) Urine Hyaline Casts Few /HPF Urine Mucus Mod /LPF Glucose (Fingerstick) 92 mg/dL (70-99) Test 11/06/16 08:03 11/06/16 12:13 11/06/16 16:52 11/06/16 22:08 Glucose (Fingerstick) 96 mg/dL (70-99) 118 mg/dL (70-99) 174 mg/dL (70-99) 95 mg/dL (70-99) Test 11/07/16 04:00 11/07/16 07:08 11/07/16 07:48 11/07/16 11:55 White Blood Count 7.1 x10^3/uL (4.0-11.0) Red Blood Count 3.33 x10^6/uL (4.30-5.70) Hemoglobin 9.1 g/dL (13.0-17.5) Hematocrit 28.6 % (39.0-53.0) Mean Corpuscular Volume 86 fL (79-100) Mean Corpuscular Hemoglobin 27 pg (25-35) Mean Corpuscular Hemoglobin Concent 32 g/dL (31-37) Red Cell Distribution Width 16.8 % (11.5-14.5) Platelet Count 215 x10^3/uL (140-400) Neutrophils (%) (Auto) 66 % (31-73) Lymphocytes (%) (Auto) 20 % (24-48) Monocytes (%) (Auto) 10 % (0-9) Eosinophils (%) (Auto) 4 % (0-3) Basophils (%) (Auto) 1 % (0-3) Neutrophils # (Auto) 4.7 x10^3uL (1.8-7.7) Lymphocytes # (Auto) 1.4 x10^3/uL (1.0-4.8) Monocytes # (Auto) 0.7 x10^3/uL (0.0-1.1) Eosinophils # (Auto) 0.3 x10^3/uL (0.0-0.7) Basophils # (Auto) 0.1 x10^3/uL (0.0-0.2) Sodium Level 141 mmol/L (136-145) Potassium Level 4.4 mmol/L (3.5-5.1) Chloride Level 103 mmol/L (98-107) Carbon Dioxide Level 33 mmol/L (21-32) Anion Gap 5 (6-14) Blood Urea Nitrogen 25 mg/dL (8-26) Creatinine 1.4 mg/dL (0.7-1.3) Estimated GFR (Cockcroft-Gault) 59.9 Glucose Level 57 mg/dL (70-99) Calcium Level 8.7 mg/dL (8.5-10.1) Glucose (Fingerstick) 67 mg/dL (70-99) 113 mg/dL (70-99) Laboratory Tests Test 11/06/16 16:52 11/06/16 22:08 11/07/16 04:00 11/07/16 07:08 Glucose (Fingerstick) 174 mg/dL (70-99) 95 mg/dL (70-99) White Blood Count 7.1 x10^3/uL (4.0-11.0) Red Blood Count 3.33 x10^6/uL (4.30-5.70) Hemoglobin 9.1 g/dL (13.0-17.5) Hematocrit 28.6 % (39.0-53.0) Mean Corpuscular Volume 86 fL (79-100) Mean Corpuscular Hemoglobin 27 pg (25-35) Mean Corpuscular Hemoglobin Concent 32 g/dL (31-37) Red Cell Distribution Width 16.8 % (11.5-14.5) Platelet Count 215 x10^3/uL (140-400) Neutrophils (%) (Auto) 66 % (31-73) Lymphocytes (%) (Auto) 20 % (24-48) Monocytes (%) (Auto) 10 % (0-9) Eosinophils (%) (Auto) 4 % (0-3) Basophils (%) (Auto) 1 % (0-3) Neutrophils # (Auto) 4.7 x10^3uL (1.8-7.7) Lymphocytes # (Auto) 1.4 x10^3/uL (1.0-4.8) Monocytes # (Auto) 0.7 x10^3/uL (0.0-1.1) Eosinophils # (Auto) 0.3 x10^3/uL (0.0-0.7) Basophils # (Auto) 0.1 x10^3/uL (0.0-0.2) Sodium Level 141 mmol/L (136-145) Potassium Level 4.4 mmol/L (3.5-5.1) Chloride Level 103 mmol/L (98-107) Carbon Dioxide Level 33 mmol/L (21-32) Anion Gap 5 (6-14) Blood Urea Nitrogen 25 mg/dL (8-26) Creatinine 1.4 mg/dL (0.7-1.3) Estimated GFR (Cockcroft-Gault) 59.9 Glucose Level 57 mg/dL (70-99) Calcium Level 8.7 mg/dL (8.5-10.1) Test 11/07/16 07:48 11/07/16 11:55 Glucose (Fingerstick) 67 mg/dL (70-99) 113 mg/dL (70-99) Medications Current Medications Albuterol Sulfate (Ventolin Neb Soln) 10 mg 1X ONCE CONT NEB Last administered on 11/05/16t 19:22; Start 11/05/16 at 19:00; Stop 11/05/16 at 19:01 ; Status DC Ipratropium Jones (Atrovent) 0.5 mg 1X ONCE NEB Last administered on 19:22; Start 11/05/16 at 19:00; Stop 11/05/16 at 19:01; Status DC Furosemide (Lasix) 40 mg 1X ONCE IVP Last administered on 11/05/16 20:18; Start 11/05/16 at 20:15; Stop 11/05/16 at 20:16; Status DC Ondansetron HCl (Zofran) 4 mg PRN Q8HRS PRN IV NAUSEA/VOMITING; Start 11/05/16 at 20:15; Stop 11/05/16 at 20:23; Status DC Furosemide (Lasix) 40 mg [id number] IVP Last administered on 11/07/16 09:26; Start 11/06/16 at 09:00 Ondansetron HCl (Zofran) 4 mg PRN Q6HRS PRN IV NAUSEA/VOMITING; Start 11/05/16 at 20:20; Stop 11/06/16 at 20:19; Status DC Insulin Aspart (NovoLOG) 0-7 UNITS TIDWMEALS SQ Last administered on 11/06/16 17:28; Start 11/05/16 at 21:00 Dextrose (Dextrose 50%-Water Syringe) 12.5 gm PRN Q15MIN PRN IV SEE COMMENTS; Start 11/05/16 at 20:30 Albuterol/ Ipratropium (Duoneb) 3 ml RTQID NEB Last administered on 11/07/16 11:38; Start 11/05/16 at 21:00 Amlodipine Besylate (Norvasc) 10 mg DAILY PO Last administered on 11/07/16 09: 27; Start 11/06/16 at 09:00 Atorvastatin Calcium (Lipitor) 40 mg HS PO Last administered on 11/06/16 22:03 ; Start 11/05/16 at 21:00 Clopidogrel Bisulfate (Plavix) 75 mg DAILY PO Last administered on 11/07/16 09 :27; Start 11/06/16 at 09:00 Diltiazem HCl (Cardizem 24hr Cd) 240 mg DAILY PO Last administered on 09:26; Start 11/06/16 at 09:00 Nitroglycerin (Nitrostat) 0.4 mg PRN Q5MIN PRN SL CHEST PAIN; Start 11/05/16 at 20:30 Non-Formulary Medication 2 puff BID IH ; Start 11/05/16 at 21:00; Status UNV Budesonide (Pulmicort) 0.5 mg RTBID NEB Last administered on 11/07/16 07:51; Start 11/05/16 at 21:00 Insulin Detemir (Levemir) 10 units QHS SQ Last administered on 11/06/16 22:25 ; Start 11/05/16 at 21:00 Isosorbide Mononitrate (Imdur) 120 mg DAILY PO Last administered on 11/07/16 09:27; Start 11/06/16 at 09:00 Sodium Chloride 1,000 ml @ 1,000 mls/hr 1X ONCE IV ; Start 11/05/16 at 21:30; Stop 11/05/16 at 22:29; Status DC Labetalol HCl (Normodyne) 10 mg PRN Q2HR PRN IVP HYPERTENSION, SEE COMMENTS Last administered on 11/06/16 04:40; Start 11/06/16 at 01:15 Hydralazine HCl (Apresoline) 50 mg TID PO Last administered on 11/07/16 09:26 ; Start 11/06/16 at 11:00 Acetaminophen (Tylenol) 650 mg PRN Q6HRS PRN PO FEVER; Start 11/06/16 at 14:30 Ondansetron HCl (Zofran) 4 mg PRN Q6HRS PRN IV NAUSEA/VOMITING; Start 11/06/16 at 14:30 Morphine Sulfate 2 mg PRN Q2HR PRN IV PAIN; Start 11/06/16 at 14:30 Tramadol HCl (Ultram) 50 mg PRN Q6HRS PRN PO PAIN; Start 11/06/16 at 14:30 Hydralazine HCl (Apresoline) 10 mg PRN Q4HRS PRN IVP ELEVATED BP, SEE COMMENTS ; Start 11/06/16 at 14:30 Docusate Sodium (Colace) 100 mg PRN DAILY PRN PO CONSTIPATION; Start 11/06/16 at 14:30 Active Scripts Active Norvasc (Amlodipine Besylate) 10 Mg Tablet 10 Mg PO DAILY 30 Days Levemir (Insulin Detemir) 100 Unit/1 Ml Vial 10 Unit SQ QHS 30 Days Lasix (Furosemide) 40 Mg Tablet 1 Tab PO DAILY Plavix (Clopidogrel Bisulfate) 75 Mg Tablet 1 Tab PO DAILY Reported Advair 100-50 Diskus (Fluticasone/Salmeterol) 1 Each Disk.w.dev 1 Puff IH BID Symbicort 160-4.5 Mcg Inhaler (Budesonide/Formoterol Fumarate) 10.2 Gm Hfa.aer.ad 2 Puff IH BID Isosorbide Mononitrate Er (Isosorbide Mononitrate) 120 Mg Tab.er.24h 120 Mg PO DAILY Diltiazem 24HR Cd (Diltiazem Hcl) 240 Mg Cap.er.24h 240 Mg PO DAILY NITROGLYCERIN SubLingual (Nitroglycerin) 0.4 Mg Tab.subl 0.4 Mg SL PRN Q5MIN PRN Atorvastatin Calcium 40 Mg Tablet 40 Mg PO HS Vitals/I & O Vital Sign - Last 24 Hours 11/06/16 11/06/16 11/06/16 11/06/16 14:35 15:10 17:24 19:30 Temp 98.0 98.1 98.0 98.1 Pulse 71 70 83 Resp 20 22 B/P (MAP) 135/61 (85) 148/70 129/75 (93) Pulse Ox 93 99 O2 Delivery Nasal Cannula Nasal Cannula Nasal Cannula O2 Flow Rate 2.0 2.0 4.0 11/06/16 11/06/16 11/06/16 11/06/16 20:00 20:31 22:04 23:30 Temp 97.9 97.9 Pulse 73 77 Resp 20 B/P (MAP) 129/75 133/63 (86) Pulse Ox 96 96 O2 Delivery Nasal Cannula Nasal Cannula Nasal Cannula O2 Flow Rate 2.0 2.0 3.0 11/07/16 11/07/16 11/07/16 11/07/16 03:20 07:00 07:53 07:59 Temp 97.6 97.0 97.6 97.0 Pulse 75 82 Resp 18 18 B/P (MAP) 140/65 (90) 165/77 (106) Pulse Ox 98 100 96 O2 Delivery Nasal Cannula Room Air Nasal Cannula Nasal Cannula O2 Flow Rate 3.0 2.0 2.0 11/07/16 11/07/16 11/07/16 11/07/16 09:26 09:26 09:27 09:27 Pulse 83 83 83 83 B/P (MAP) 165/77 165/77 165/77 165/77 11/07/16 11/07/16 11:00 11:39 Temp 96.8 96.8 Pulse 80 Resp 18 B/P (MAP) 145/70 (95) Pulse Ox 99 98 O2 Delivery Nasal Cannula Nasal Cannula O2 Flow Rate 3.0 2.0 Intake and Output 11/06/16 11/06/16 11/07/16 15:00 23:00 07:00 Intake Total 480 ml 400 ml Output Total 500 ml 425 ml Balance 480 ml -500 ml -25 ml JOHN PAUL BALDWIN MD Nov 07, 2016 13:31
--- NOTE | 2016-11-07 14:35 | PDOC ---
PROGRESS NOTES Subjective Subjective The patient is slightly more comfortable today. Objective Objective Vital Signs Date Time Temp Pulse Resp B/P (MAP) Pulse Ox O2 Delivery O2 Flow Rate FiO2 11/07/16 11:39 98 Nasal Cannula 2.0 11/07/16 11:00 96.8 80 18 145/70 (95) 96.8 Intake and Output 11/07/16 07:00 Intake Total 880 ml Output Total 925 ml Balance -45 ml Intake Oral 880 ml Output Urine Total 925 ml Physical Exam Abdomen: Normal bowel sounds Heart: Regular rate General: mild distress Lungs: Other (mildly decreased breath sounds) Assessment Assessment Problems Medical Problems: (1) Congestive heart failure Status: Acute ASSESSMENT/PLAN 1. Acute on chronic diastolic CHF: multifactorial. Mildly improved today. 2. Accelerated HTN: Mildly improved. Continue medical treatment. 3. Acute on chronic respiratory failure with COPD/pulmonary HTN 4. CKD 5. Hx of PE/DVT: IVC filter in place Comment Review of Relevant I have reviewed the following items valerie (where applicable) has been applied. Labs Laboratory Tests Test 11/05/16 18:15 11/05/16 18:25 11/05/16 19:42 11/06/16 00:42 Erythrocyte Sedimentation Rate 58 (0-15) D-Dimer (Lizbeth) 3.13 ug/mlFEU (0.00-0.50) White Blood Count 6.6 x10^3/uL (4.0-11.0) Red Blood Count 3.51 x10^6/uL (4.30-5.70) Hemoglobin 9.5 g/dL (13.0-17.5) Hematocrit 30.3 % (39.0-53.0) Mean Corpuscular Volume 86 fL (79-100) Mean Corpuscular Hemoglobin 27 pg (25-35) Mean Corpuscular Hemoglobin Concent 31 g/dL (31-37) Red Cell Distribution Width 16.5 % (11.5-14.5) Platelet Count 260 x10^3/uL (140-400) Neutrophils (%) (Auto) 71 % (31-73) Lymphocytes (%) (Auto) 18 % (24-48) Monocytes (%) (Auto) 9 % (0-9) Eosinophils (%) (Auto) 2 % (0-3) Basophils (%) (Auto) 1 % (0-3) Neutrophils # (Auto) 4.7 x10^3uL (1.8-7.7) Lymphocytes # (Auto) 1.2 x10^3/uL (1.0-4.8) Monocytes # (Auto) 0.6 x10^3/uL (0.0-1.1) Eosinophils # (Auto) 0.1 x10^3/uL (0.0-0.7) Basophils # (Auto) 0.0 x10^3/uL (0.0-0.2) Prothrombin Time 12.8 SEC (11.7-14.0) Prothromb Time International Ratio 1.0 (0.8-1.1) Sodium Level 146 mmol/L (136-145) Potassium Level 4.8 mmol/L (3.5-5.1) Chloride Level 106 mmol/L (98-107) Carbon Dioxide Level 33 mmol/L (21-32) Anion Gap 7 (6-14) Blood Urea Nitrogen 28 mg/dL (8-26) Creatinine 1.9 mg/dL (0.7-1.3) Estimated GFR (Cockcroft-Gault) 42.1 BUN/Creatinine Ratio 15 (6-20) Glucose Level 126 mg/dL (70-99) Calcium Level 8.2 mg/dL (8.5-10.1) Total Bilirubin 0.2 mg/dL (0.2-1.0) Aspartate Amino Transf (AST/SGOT) 17 U/L (15-37) Alanine Aminotransferase (ALT/SGPT) 18 U/L (16-63) Alkaline Phosphatase 85 U/L (46-116) Creatine Kinase 75 U/L (39-308) Troponin I Quantitative 0.024 ng/mL (0.000-0.055) DU-Qxl-T-Type Natriuretic Peptide 11286 pg/mL (0-124) Total Protein 6.9 g/dL (6.4-8.2) Albumin 3.2 g/dL (3.4-5.0) Albumin/Globulin Ratio 0.9 (1.0-1.7) Urine Collection Type Unknown Urine Color Yellow Urine Clarity Clear Urine pH 5.5 Urine Specific [place] 1.010 Urine Protein 100 mg/dL (NEG-TRACE) Urine Glucose (UA) Negative mg/dL (NEG) Urine Ketones (Stick) Negative mg/dL (NEG) Urine Blood Trace (NEG) Urine Nitrite Negative (NEG) Urine Bilirubin Negative (NEG) Urine Urobilinogen Dipstick 1.0 mg/dL (0.2 mg/dL) Urine Leukocyte Esterase Negative (NEG) Urine RBC Occ /HPF (0-2) Urine WBC 0 /HPF (0-4) Urine Squamous Epithelial Cells Few /LPF Urine Bacteria 0 /HPF (0-FEW) Urine Hyaline Casts Few /HPF Urine Mucus Mod /LPF Glucose (Fingerstick) 92 mg/dL (70-99) Test 11/06/16 08:03 11/06/16 12:13 11/06/16 16:52 11/06/16 22:08 Glucose (Fingerstick) 96 mg/dL (70-99) 118 mg/dL (70-99) 174 mg/dL (70-99) 95 mg/dL (70-99) Test 11/07/16 04:00 11/07/16 07:08 11/07/16 07:48 11/07/16 11:55 White Blood Count 7.1 x10^3/uL (4.0-11.0) Red Blood Count 3.33 x10^6/uL (4.30-5.70) Hemoglobin 9.1 g/dL (13.0-17.5) Hematocrit 28.6 % (39.0-53.0) Mean Corpuscular Volume 86 fL (79-100) Mean Corpuscular Hemoglobin 27 pg (25-35) Mean Corpuscular Hemoglobin Concent 32 g/dL (31-37) Red Cell Distribution Width 16.8 % (11.5-14.5) Platelet Count 215 x10^3/uL (140-400) Neutrophils (%) (Auto) 66 % (31-73) Lymphocytes (%) (Auto) 20 % (24-48) Monocytes (%) (Auto) 10 % (0-9) Eosinophils (%) (Auto) 4 % (0-3) Basophils (%) (Auto) 1 % (0-3) Neutrophils # (Auto) 4.7 x10^3uL (1.8-7.7) Lymphocytes # (Auto) 1.4 x10^3/uL (1.0-4.8) Monocytes # (Auto) 0.7 x10^3/uL (0.0-1.1) Eosinophils # (Auto) 0.3 x10^3/uL (0.0-0.7) Basophils # (Auto) 0.1 x10^3/uL (0.0-0.2) Sodium Level 141 mmol/L (136-145) Potassium Level 4.4 mmol/L (3.5-5.1) Chloride Level 103 mmol/L (98-107) Carbon Dioxide Level 33 mmol/L (21-32) Anion Gap 5 (6-14) Blood Urea Nitrogen 25 mg/dL (8-26) Creatinine 1.4 mg/dL (0.7-1.3) Estimated GFR (Cockcroft-Gault) 59.9 Glucose Level 57 mg/dL (70-99) Calcium Level 8.7 mg/dL (8.5-10.1) Glucose (Fingerstick) 67 mg/dL (70-99) 113 mg/dL (70-99) Laboratory Tests Test 11/06/16 16:52 11/06/16 22:08 11/07/16 04:00 11/07/16 07:08 Glucose (Fingerstick) 174 mg/dL (70-99) 95 mg/dL (70-99) White Blood Count 7.1 x10^3/uL (4.0-11.0) Red Blood Count 3.33 x10^6/uL (4.30-5.70) Hemoglobin 9.1 g/dL (13.0-17.5) Hematocrit 28.6 % (39.0-53.0) Mean Corpuscular Volume 86 fL (79-100) Mean Corpuscular Hemoglobin 27 pg (25-35) Mean Corpuscular Hemoglobin Concent 32 g/dL (31-37) Red Cell Distribution Width 16.8 % (11.5-14.5) Platelet Count 215 x10^3/uL (140-400) Neutrophils (%) (Auto) 66 % (31-73) Lymphocytes (%) (Auto) 20 % (24-48) Monocytes (%) (Auto) 10 % (0-9) Eosinophils (%) (Auto) 4 % (0-3) Basophils (%) (Auto) 1 % (0-3) Neutrophils # (Auto) 4.7 x10^3uL (1.8-7.7) Lymphocytes # (Auto) 1.4 x10^3/uL (1.0-4.8) Monocytes # (Auto) 0.7 x10^3/uL (0.0-1.1) Eosinophils # (Auto) 0.3 x10^3/uL (0.0-0.7) Basophils # (Auto) 0.1 x10^3/uL (0.0-0.2) Sodium Level 141 mmol/L (136-145) Potassium Level 4.4 mmol/L (3.5-5.1) Chloride Level 103 mmol/L (98-107) Carbon Dioxide Level 33 mmol/L (21-32) Anion Gap 5 (6-14) Blood Urea Nitrogen 25 mg/dL (8-26) Creatinine 1.4 mg/dL (0.7-1.3) Estimated GFR (Cockcroft-Gault) 59.9 Glucose Level 57 mg/dL (70-99) Calcium Level 8.7 mg/dL (8.5-10.1) Test 11/07/16 07:48 11/07/16 11:55 Glucose (Fingerstick) 67 mg/dL (70-99) 113 mg/dL (70-99) Medications Current Medications Albuterol Sulfate (Ventolin Neb Soln) 10 mg 1X ONCE CONT NEB Last administered on 11/05/16 19:22; Start 11/05/16 at 19:00; Stop 11/05/16 at 19:01 ; Status DC Ipratropium Rewey (Atrovent) 0.5 mg 1X ONCE NEB Last administered on 19:22; Start 11/05/16 at 19:00; Stop 11/05/16 at 19:01; Status DC Furosemide (Lasix) 40 mg 1X ONCE IVP Last administered on 11/05/16 20:18; Start 11/05/16 at 20:15; Stop 11/05/16 at 20:16; Status DC Ondansetron HCl (Zofran) 4 mg PRN Q8HRS PRN IV NAUSEA/VOMITING; Start 11/05/16 at 20:15; Stop 11/05/16 at 20:23; Status DC Furosemide (Lasix) 40 mg [id number] IVP Last administered on 11/07/16 09:26; Start 11/06/16 at 09:00 Ondansetron HCl (Zofran) 4 mg PRN Q6HRS PRN IV NAUSEA/VOMITING; Start 11/05/16 at 20:20; Stop 11/06/16 at 20:19; Status DC Insulin Aspart (NovoLOG) 0-7 UNITS TIDWMEALS SQ Last administered on 11/06/16 17:28; Start 11/05/16 at 21:00 Dextrose (Dextrose 50%-Water Syringe) 12.5 gm PRN Q15MIN PRN IV SEE COMMENTS; Start 11/05/16 at 20:30 Albuterol/ Ipratropium (Duoneb) 3 ml RTQID NEB Last administered on 11/07/16 11:38; Start 11/05/16 at 21:00 Amlodipine Besylate (Norvasc) 10 mg DAILY PO Last administered on 11/07/16 09: 27; Start 11/06/16 at 09:00 Atorvastatin Calcium (Lipitor) 40 mg HS PO Last administered on 11/06/16 22:03 ; Start 11/05/16 at 21:00 Clopidogrel Bisulfate (Plavix) 75 mg DAILY PO Last administered on 11/07/16 09 :27; Start 11/06/16 at 09:00 Diltiazem HCl (Cardizem 24hr Cd) 240 mg DAILY PO Last administered on 09:26; Start 11/06/16 at 09:00 Nitroglycerin (Nitrostat) 0.4 mg PRN Q5MIN PRN SL CHEST PAIN; Start 11/05/16 at 20:30 Non-Formulary Medication 2 puff BID IH ; Start 11/05/16 at 21:00; Status UNV Budesonide (Pulmicort) 0.5 mg RTBID NEB Last administered on 11/07/16 07:51; Start 11/05/16 at 21:00 Insulin Detemir (Levemir) 10 units QHS SQ Last administered on 11/06/16 22:25 ; Start 11/05/16 at 21:00 Isosorbide Mononitrate (Imdur) 120 mg DAILY PO Last administered on 11/07/16 09:27; Start 11/06/16 at 09:00 Sodium Chloride 1,000 ml @ 1,000 mls/hr 1X ONCE IV ; Start 11/05/16 at 21:30; Stop 11/05/16 at 22:29; Status DC Labetalol HCl (Normodyne) 10 mg PRN Q2HR PRN IVP HYPERTENSION, SEE COMMENTS Last administered on 11/06/16 04:40; Start 11/06/16 at 01:15 Hydralazine HCl (Apresoline) 50 mg TID PO Last administered on 11/07/16 09:26 ; Start 11/06/16 at 11:00 Acetaminophen (Tylenol) 650 mg PRN Q6HRS PRN PO FEVER; Start 11/06/16 at 14:30 Ondansetron HCl (Zofran) 4 mg PRN Q6HRS PRN IV NAUSEA/VOMITING; Start 11/06/16 at 14:30 Morphine Sulfate 2 mg PRN Q2HR PRN IV PAIN; Start 11/06/16 at 14:30 Tramadol HCl (Ultram) 50 mg PRN Q6HRS PRN PO PAIN; Start 11/06/16 at 14:30 Hydralazine HCl (Apresoline) 10 mg PRN Q4HRS PRN IVP ELEVATED BP, SEE COMMENTS ; Start 11/06/16 at 14:30 Docusate Sodium (Colace) 100 mg PRN DAILY PRN PO CONSTIPATION; Start 11/06/16 at 14:30 Active Scripts Active Norvasc (Amlodipine Besylate) 10 Mg Tablet 10 Mg PO DAILY 30 Days Levemir (Insulin Detemir) 100 Unit/1 Ml Vial 10 Unit SQ QHS 30 Days Lasix (Furosemide) 40 Mg Tablet 1 Tab PO DAILY Plavix (Clopidogrel Bisulfate) 75 Mg Tablet 1 Tab PO DAILY Reported Advair 100-50 Diskus (Fluticasone/Salmeterol) 1 Each Disk.w.dev 1 Puff IH BID Symbicort 160-4.5 Mcg Inhaler (Budesonide/Formoterol Fumarate) 10.2 Gm Hfa.aer.ad 2 Puff IH BID Isosorbide Mononitrate Er (Isosorbide Mononitrate) 120 Mg Tab.er.24h 120 Mg PO DAILY Diltiazem 24HR Cd (Diltiazem Hcl) 240 Mg Cap.er.24h 240 Mg PO DAILY NITROGLYCERIN SubLingual (Nitroglycerin) 0.4 Mg Tab.subl 0.4 Mg SL PRN Q5MIN PRN Atorvastatin Calcium 40 Mg Tablet 40 Mg PO HS Vitals/I & O Vital Sign - Last 24 Hours 11/06/16 11/06/16 11/06/16 11/06/16 14:35 15:10 17:24 19:30 Temp 98.0 98.1 98.0 98.1 Pulse 71 70 83 Resp 20 22 B/P (MAP) 135/61 (85) 148/70 129/75 (93) Pulse Ox 93 99 O2 Delivery Nasal Cannula Nasal Cannula Nasal Cannula O2 Flow Rate 2.0 2.0 4.0 11/06/16 11/06/16 11/06/16 11/06/16 20:00 20:31 22:04 23:30 Temp 97.9 97.9 Pulse 73 77 Resp 20 B/P (MAP) 129/75 133/63 (86) Pulse Ox 96 96 O2 Delivery Nasal Cannula Nasal Cannula Nasal Cannula O2 Flow Rate 2.0 2.0 3.0 11/07/16 11/07/16 11/07/16 11/07/16 03:20 07:00 07:53 07:59 Temp 97.6 97.0 97.6 97.0 Pulse 75 82 Resp 18 18 B/P (MAP) 140/65 (90) 165/77 (106) Pulse Ox 98 100 96 O2 Delivery Nasal Cannula Room Air Nasal Cannula Nasal Cannula O2 Flow Rate 3.0 2.0 2.0 11/07/16 11/07/16 11/07/16 11/07/16 09:26 09:26 09:27 09:27 Pulse 83 83 83 83 B/P (MAP) 165/77 165/77 165/77 165/77 11/07/16 11/07/16 11:00 11:39 Temp 96.8 96.8 Pulse 80 Resp 18 B/P (MAP) 145/70 (95) Pulse Ox 99 98 O2 Delivery Nasal Cannula Nasal Cannula O2 Flow Rate 3.0 2.0 Intake and Output 11/06/16 11/06/16 11/07/16 15:00 23:00 07:00 Intake Total 480 ml 400 ml Output Total 500 ml 425 ml Balance 480 ml -500 ml -25 ml SANTY [email or web address] MD Nov 07, 2016 14:34
[2016-11-07 15:00] VITALS: BP 138/64
[2016-11-07 19:25] VITALS: BP 143/67
[2016-11-07] MEDS: ATORVASTATIN CALCIUM 40 MG TABLET. PO SCH (21:54)
[2016-11-07] MEDS: INSULIN DETEMIR 300 UNITS/3 ML INSULN.PEN. SQ SCH (21:59)
[2016-11-07 23:10] VITALS: BP 124/52
[2016-11-08 03:07] VITALS: BP 136/63
[2016-11-08 05:12] LABS: BASO % 1 % (0-3); EOS % 3 % (0-3); HEMATOCRIT 28.2 % (39.0-53.0); LYMPH # 1.2 x10^3/uL (1.0-4.8); LYMPH % 20 % (24-48); MEAN CORPUSCULAR HEMOGLOBIN 27 pg (25-35); MEAN CORPUSCULAR HGB CONC 32 g/dL (31-37); MEAN CORPUSCULAR VOLUME 85 fL (79-100); MONO % 11 % (0-9); NEUT % 66 % (31-73); PLATELET COUNT 254 x10^3/uL (140-400); RED BLOOD COUNT 3.33 x10^6/uL (4.30-5.70); RED CELL DISTRIBUTION WIDTH 16.9 % (11.5-14.5)
[2016-11-08 05:44] LABS: CALCIUM 8.1 mg/dL (8.5-10.1); CREATININE 1.7 mg/dL (0.7-1.3); GFR 47.9
[2016-11-08 07:20] VITALS: BP 157/69
[2016-11-08] MEDS: BUDESONIDE 0.5 MG/2 ML NEBU. NEB SCH ×2 (07:59→19:14)
[2016-11-08] MEDS: IPRATRPIUM/ALBUTEROL 0.5/2.5MG 3 ML NEBU. NEB SCH ×4 (07:59→19:14)
[2016-11-08] MEDS: INSULIN ASPART 300 UNITS/3 ML INSULN.PEN SQ SCH ×3 (08:00→17:00)
[2016-11-08] MEDS: CLOPIDOGREL BISULFATE 75 MG TABLET PO SCH (08:54)
[2016-11-08] MEDS: amLODIPine BESYLATE 10 MG TABLET PO SCH (08:55)
[2016-11-08] MEDS: FUROSEMIDE 40 MG/4 ML VIAL. IVP SCH (08:56)
[2016-11-08] MEDS: ISOSORBIDE MONONITRATE ER 30 MG TAB.ER.24H PO SCH (08:56)
[2016-11-08 11:00] VITALS: BP 133/59
--- NOTE | 2016-11-08 12:16 | PDOC ---
CARDIO Progress Notes Date and Time Date of Service 11/08/2016 Time of Evaluation 1210 Subjective Subjective: No Chest Pain, No shortness of breath, No Palpitations, No Dizziness Vitals Vitals Vital Signs Date Time Temp Pulse Resp B/P (MAP) Pulse Ox O2 Delivery O2 Flow Rate FiO2 11/08/16 11:00 99.1 84 22 133/59 (83) 96 Nasal Cannula 2.5 99.1 Weight Weight [ ] Input and Output Intake and Output Intake and Output 11/08/16 07:00 Intake Total 1740 ml Output Total 2175 ml Balance -435 ml Intake Oral 1740 ml Output Urine Total 2175 ml # Voids 2 # Bowel Movements 1 Laboratory Labs Laboratory Tests Test 11/07/16 16:56 11/07/16 21:52 11/08/16 04:15 11/08/16 07:30 Glucose (Fingerstick) 111 mg/dL (70-99) 170 mg/dL (70-99) 81 mg/dL (70-99) White Blood Count 6.0 x10^3/uL (4.0-11.0) Red Blood Count 3.33 x10^6/uL (4.30-5.70) Hemoglobin 9.0 g/dL (13.0-17.5) Hematocrit 28.2 % (39.0-53.0) Mean Corpuscular Volume 85 fL (79-100) Mean Corpuscular Hemoglobin 27 pg (25-35) Mean Corpuscular Hemoglobin Concent 32 g/dL (31-37) Red Cell Distribution Width 16.9 % (11.5-14.5) Platelet Count 254 x10^3/uL (140-400) Neutrophils (%) (Auto) 66 % (31-73) Lymphocytes (%) (Auto) 20 % (24-48) Monocytes (%) (Auto) 11 % (0-9) Eosinophils (%) (Auto) 3 % (0-3) Basophils (%) (Auto) 1 % (0-3) Neutrophils # (Auto) 3.9 x10^3uL (1.8-7.7) Lymphocytes # (Auto) 1.2 x10^3/uL (1.0-4.8) Monocytes # (Auto) 0.7 x10^3/uL (0.0-1.1) Eosinophils # (Auto) 0.2 x10^3/uL (0.0-0.7) Basophils # (Auto) 0.0 x10^3/uL (0.0-0.2) Sodium Level 142 mmol/L (136-145) Potassium Level 4.0 mmol/L (3.5-5.1) Chloride Level 101 mmol/L (98-107) Carbon Dioxide Level 37 mmol/L (21-32) Anion Gap 4 (6-14) Blood Urea Nitrogen 28 mg/dL (8-26) Creatinine 1.7 mg/dL (0.7-1.3) Estimated GFR (Cockcroft-Gault) 47.9 Glucose Level 71 mg/dL (70-99) Calcium Level 8.1 mg/dL (8.5-10.1) Physical Exam HEENT: Neck Supple W Full Motion Chest: Symmetric LUNGS: Other (left faint crackles) Heart: S1S2, RRR (SR no rhtyhm ectopies) Abdomen: Soft N/T Extremities: No Calf Tenderness, Other (2+ bilateral LE pitting edema) Neurology: alert, oriented, follow commands Assessment Assessment 1. Acute on chronic diastolic CHF: compensated 2. Accelerated HTN: improved 3. Acute on chronic respiratory failure with COPD/pulmonary HTN 4. CKD 5. 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 Continue current regimen. There is no need for 2 Ca blockers. Will keep cardizem and increase to 300 mg daily. 2. DC IV lasix. Start on po lasix tomorrow. 3. Continue secondary prevention SHIVA JEREZ APRN Nov 08, 2016 12:16
--- NOTE | 2016-11-08 13:34 | PDOC ---
PROGRESS NOTES Chief Complaint Chief Complaint 1. dyspnea with diastolic CHF exacerbation, PHTN 2. Acute hypoxic respi failure, hx PE, hx DVT and BLEEDINg if on AC 3 Diabetic wound, heel wound 4. 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 Mod PCM 8. High fall risk 9. Gen weakness 10/ sp R toe ampuitations 11-. s./p fem pop bypass, R IFC filter plan: fu with card, pulm on lasix 40mg iv bid , held on 11/08, may need resume to po daily duoneb dvt ppx PAT consult pending, since h/o hospice , now FC wound care consult dc levemir, cont ssi dc tmr if ok History of Present Illness History of Present Illness bed bound feels better on NC 2 l his baseline bl feet wound hypoglycemia better Vitals Vitals Vital Signs Date Time Temp Pulse Resp B/P (MAP) Pulse Ox O2 Delivery O2 Flow Rate FiO2 11/08/16 12:13 Nasal Cannula 2.0 11/08/16 11:00 99.1 84 22 133/59 (83) 96 99.1 Physical Exam General: Alert, Oriented X3, Cooperative Heart: Regular rate Lungs: Clear, Other Abdomen: Normal bowel sounds Extremities: No clubbing, Other (2+edema, bl feet wound) Skin: No rashes Labs LABS Laboratory Tests Test 11/07/16 16:56 11/07/16 21:52 11/08/16 04:15 11/08/16 07:30 Glucose (Fingerstick) 111 mg/dL (70-99) 170 mg/dL (70-99) 81 mg/dL (70-99) White Blood Count 6.0 x10^3/uL (4.0-11.0) Red Blood Count 3.33 x10^6/uL (4.30-5.70) Hemoglobin 9.0 g/dL (13.0-17.5) Hematocrit 28.2 % (39.0-53.0) Mean Corpuscular Volume 85 fL (79-100) Mean Corpuscular Hemoglobin 27 pg (25-35) Mean Corpuscular Hemoglobin Concent 32 g/dL (31-37) Red Cell Distribution Width 16.9 % (11.5-14.5) Platelet Count 254 x10^3/uL (140-400) Neutrophils (%) (Auto) 66 % (31-73) Lymphocytes (%) (Auto) 20 % (24-48) Monocytes (%) (Auto) 11 % (0-9) Eosinophils (%) (Auto) 3 % (0-3) Basophils (%) (Auto) 1 % (0-3) Neutrophils # (Auto) 3.9 x10^3uL (1.8-7.7) Lymphocytes # (Auto) 1.2 x10^3/uL (1.0-4.8) Monocytes # (Auto) 0.7 x10^3/uL (0.0-1.1) Eosinophils # (Auto) 0.2 x10^3/uL (0.0-0.7) Basophils # (Auto) 0.0 x10^3/uL (0.0-0.2) Sodium Level 142 mmol/L (136-145) Potassium Level 4.0 mmol/L (3.5-5.1) Chloride Level 101 mmol/L (98-107) Carbon Dioxide Level 37 mmol/L (21-32) Anion Gap 4 (6-14) Blood Urea Nitrogen 28 mg/dL (8-26) Creatinine 1.7 mg/dL (0.7-1.3) Estimated GFR (Cockcroft-Gault) 47.9 Glucose Level 71 mg/dL (70-99) Calcium Level 8.1 mg/dL (8.5-10.1) Test 11/08/16 11:25 Glucose (Fingerstick) 172 mg/dL (70-99) Review of Systems Review of Systems no fever, chills, sob or chest pain Assessment and Plan Assessmemt and Plan Problems Medical Problems: (1) Congestive heart failure Status: Acute Problems: Comment Review of Relevant I have reviewed the following items valerie (where applicable) has been applied. Labs Laboratory Tests Test 11/06/16 16:52 11/06/16 22:08 11/07/16 04:00 11/07/16 07:08 Glucose (Fingerstick) 174 mg/dL (70-99) 95 mg/dL (70-99) White Blood Count 7.1 x10^3/uL (4.0-11.0) Red Blood Count 3.33 x10^6/uL (4.30-5.70) Hemoglobin 9.1 g/dL (13.0-17.5) Hematocrit 28.6 % (39.0-53.0) Mean Corpuscular Volume 86 fL (79-100) Mean Corpuscular Hemoglobin 27 pg (25-35) Mean Corpuscular Hemoglobin Concent 32 g/dL (31-37) Red Cell Distribution Width 16.8 % (11.5-14.5) Platelet Count 215 x10^3/uL (140-400) Neutrophils (%) (Auto) 66 % (31-73) Lymphocytes (%) (Auto) 20 % (24-48) Monocytes (%) (Auto) 10 % (0-9) Eosinophils (%) (Auto) 4 % (0-3) Basophils (%) (Auto) 1 % (0-3) Neutrophils # (Auto) 4.7 x10^3uL (1.8-7.7) Lymphocytes # (Auto) 1.4 x10^3/uL (1.0-4.8) Monocytes # (Auto) 0.7 x10^3/uL (0.0-1.1) Eosinophils # (Auto) 0.3 x10^3/uL (0.0-0.7) Basophils # (Auto) 0.1 x10^3/uL (0.0-0.2) Sodium Level 141 mmol/L (136-145) Potassium Level 4.4 mmol/L (3.5-5.1) Chloride Level 103 mmol/L (98-107) Carbon Dioxide Level 33 mmol/L (21-32) Anion Gap 5 (6-14) Blood Urea Nitrogen 25 mg/dL (8-26) Creatinine 1.4 mg/dL (0.7-1.3) Estimated GFR (Cockcroft-Gault) 59.9 Glucose Level 57 mg/dL (70-99) Calcium Level 8.7 mg/dL (8.5-10.1) Test 11/07/16 07:48 11/07/16 11:55 11/07/16 16:56 11/07/16 21:52 Glucose (Fingerstick) 67 mg/dL (70-99) 113 mg/dL (70-99) 111 mg/dL (70-99) 170 mg/dL (70-99) Test 11/08/16 04:15 11/08/16 07:30 11/08/16 11:25 White Blood Count 6.0 x10^3/uL (4.0-11.0) Red Blood Count 3.33 x10^6/uL (4.30-5.70) Hemoglobin 9.0 g/dL (13.0-17.5) Hematocrit 28.2 % (39.0-53.0) Mean Corpuscular Volume 85 fL (79-100) Mean Corpuscular Hemoglobin 27 pg (25-35) Mean Corpuscular Hemoglobin Concent 32 g/dL (31-37) Red Cell Distribution Width 16.9 % (11.5-14.5) Platelet Count 254 x10^3/uL (140-400) Neutrophils (%) (Auto) 66 % (31-73) Lymphocytes (%) (Auto) 20 % (24-48) Monocytes (%) (Auto) 11 % (0-9) Eosinophils (%) (Auto) 3 % (0-3) Basophils (%) (Auto) 1 % (0-3) Neutrophils # (Auto) 3.9 x10^3uL (1.8-7.7) Lymphocytes # (Auto) 1.2 x10^3/uL (1.0-4.8) Monocytes # (Auto) 0.7 x10^3/uL (0.0-1.1) Eosinophils # (Auto) 0.2 x10^3/uL (0.0-0.7) Basophils # (Auto) 0.0 x10^3/uL (0.0-0.2) Sodium Level 142 mmol/L (136-145) Potassium Level 4.0 mmol/L (3.5-5.1) Chloride Level 101 mmol/L (98-107) Carbon Dioxide Level 37 mmol/L (21-32) Anion Gap 4 (6-14) Blood Urea Nitrogen 28 mg/dL (8-26) Creatinine 1.7 mg/dL (0.7-1.3) Estimated GFR (Cockcroft-Gault) 47.9 Glucose Level 71 mg/dL (70-99) Calcium Level 8.1 mg/dL (8.5-10.1) Glucose (Fingerstick) 81 mg/dL (70-99) 172 mg/dL (70-99) Laboratory Tests Test 11/07/16 16:56 11/07/16 21:52 11/08/16 04:15 11/08/16 07:30 Glucose (Fingerstick) 111 mg/dL (70-99) 170 mg/dL (70-99) 81 mg/dL (70-99) White Blood Count 6.0 x10^3/uL (4.0-11.0) Red Blood Count 3.33 x10^6/uL (4.30-5.70) Hemoglobin 9.0 g/dL (13.0-17.5) Hematocrit 28.2 % (39.0-53.0) Mean Corpuscular Volume 85 fL (79-100) Mean Corpuscular Hemoglobin 27 pg (25-35) Mean Corpuscular Hemoglobin Concent 32 g/dL (31-37) Red Cell Distribution Width 16.9 % (11.5-14.5) Platelet Count 254 x10^3/uL (140-400) Neutrophils (%) (Auto) 66 % (31-73) Lymphocytes (%) (Auto) 20 % (24-48) Monocytes (%) (Auto) 11 % (0-9) Eosinophils (%) (Auto) 3 % (0-3) Basophils (%) (Auto) 1 % (0-3) Neutrophils # (Auto) 3.9 x10^3uL (1.8-7.7) Lymphocytes # (Auto) 1.2 x10^3/uL (1.0-4.8) Monocytes # (Auto) 0.7 x10^3/uL (0.0-1.1) Eosinophils # (Auto) 0.2 x10^3/uL (0.0-0.7) Basophils # (Auto) 0.0 x10^3/uL (0.0-0.2) Sodium Level 142 mmol/L (136-145) Potassium Level 4.0 mmol/L (3.5-5.1) Chloride Level 101 mmol/L (98-107) Carbon Dioxide Level 37 mmol/L (21-32) Anion Gap 4 (6-14) Blood Urea Nitrogen 28 mg/dL (8-26) Creatinine 1.7 mg/dL (0.7-1.3) Estimated GFR (Cockcroft-Gault) 47.9 Glucose Level 71 mg/dL (70-99) Calcium Level 8.1 mg/dL (8.5-10.1) Test 11/08/16 11:25 Glucose (Fingerstick) 172 mg/dL (70-99) Medications Current Medications Albuterol Sulfate (Ventolin Neb Soln) 10 mg 1X ONCE CONT NEB Last administered on 11/05/16 19:22; Start 11/05/16 at 19:00; Stop 11/05/16 at 19:01 ; Status DC Ipratropium [place] (Atrovent) 0.5 mg 1X ONCE NEB Last administered on 19:22; Start 11/05/16 at 19:00; Stop 11/05/16 at 19:01; Status DC Furosemide (Lasix) 40 mg 1X ONCE IVP Last administered on 11/05/16 20:18; Start 11/05/16 at 20:15; Stop 11/05/16 at 20:16; Status DC Ondansetron HCl (Zofran) 4 mg PRN Q8HRS PRN IV NAUSEA/VOMITING; Start 11/05/16 at 20:15; Stop 11/05/16 at 20:23; Status DC Furosemide (Lasix) 40 mg [id number] IVP Last administered on 11/08/16 08:56; Start 11/06/16 at 09:00; Stop 11/08/16 at 12:19; Status DC Ondansetron HCl (Zofran) 4 mg PRN Q6HRS PRN IV NAUSEA/VOMITING; Start 11/05/16 at 20:20; Stop 11/06/16 at 20:19; Status DC Insulin Aspart (NovoLOG) 0-7 UNITS TIDWMEALS SQ Last administered on 11/08/16 12:40; Start 11/05/16 at 21:00 Dextrose (Dextrose 50%-Water Syringe) 12.5 gm PRN Q15MIN PRN IV SEE COMMENTS; Start 11/05/16 at 20:30 Albuterol/ Ipratropium (Duoneb) 3 ml RTQID NEB Last administered on 11/08/16 12:11; Start 11/05/16 at 21:00 Amlodipine Besylate (Norvasc) 10 mg DAILY PO Last administered on 11/08/16 08: 55; Start 11/06/16 at 09:00; Stop 11/08/16 at 12:17; Status DC Atorvastatin Calcium (Lipitor) 40 mg HS PO Last administered on 11/07/16 21:54 ; Start 11/05/16 at 21:00 Clopidogrel Bisulfate (Plavix) 75 mg DAILY PO Last administered on 11/08/16 08 :54; Start 11/06/16 at 09:00 Diltiazem HCl (Cardizem 24hr Cd) 240 mg DAILY PO Last administered on 08:55; Start 11/06/16 at 09:00; Stop 11/08/16 at 12:17; Status DC Nitroglycerin (Nitrostat) 0.4 mg PRN Q5MIN PRN SL CHEST PAIN; Start 11/05/16 at 20:30 Non-Formulary Medication 2 puff BID IH ; Start 11/05/16 at 21:00; Status UNV Budesonide (Pulmicort) 0.5 mg RTBID NEB Last administered on 11/08/16 07:59; Start 11/05/16 at 21:00 Insulin Detemir (Levemir) 10 units QHS SQ Last administered on 11/07/16 21:59 ; Start 11/05/16 at 21:00 Isosorbide Mononitrate (Imdur) 120 mg DAILY PO Last administered on 11/08/16 08:56; Start 11/06/16 at 09:00 Sodium Chloride 1,000 ml @ 1,000 mls/hr 1X ONCE IV ; Start 11/05/16 at 21:30; Stop 11/05/16 at 22:29; Status DC Labetalol HCl (Normodyne) 10 mg PRN Q2HR PRN IVP HYPERTENSION, SEE COMMENTS Last administered on 11/06/16 04:40; Start 11/06/16 at 01:15 Hydralazine HCl (Apresoline) 50 mg TID PO Last administered on 11/08/16 08:55 ; Start 11/06/16 at 11:00 Acetaminophen (Tylenol) 650 mg PRN Q6HRS PRN PO FEVER; Start 11/06/16 at 14:30 Ondansetron HCl (Zofran) 4 mg PRN Q6HRS PRN IV NAUSEA/VOMITING; Start 11/06/16 at 14:30 Morphine Sulfate 2 mg PRN Q2HR PRN IV PAIN; Start 11/06/16 at 14:30 Tramadol HCl (Ultram) 50 mg PRN Q6HRS PRN PO PAIN; Start 11/06/16 at 14:30 Hydralazine HCl (Apresoline) 10 mg PRN Q4HRS PRN IVP ELEVATED BP, SEE COMMENTS ; Start 11/06/16 at 14:30 Docusate Sodium (Colace) 100 mg PRN DAILY PRN PO CONSTIPATION; Start 11/06/16 at 14:30 Diltiazem HCl (Cardizem Cd) 300 mg DAILY PO ; Start 11/09/16 at 09:00 Active Scripts Active Norvasc (Amlodipine Besylate) 10 Mg Tablet 10 Mg PO DAILY 30 Days Levemir (Insulin Detemir) 100 Unit/1 Ml Vial 10 Unit SQ QHS 30 Days Lasix (Furosemide) 40 Mg Tablet 1 Tab PO DAILY Plavix (Clopidogrel Bisulfate) 75 Mg Tablet 1 Tab PO DAILY Reported Advair 100-50 Diskus (Fluticasone/Salmeterol) 1 Each Disk.w.dev 1 Puff IH BID Symbicort 160-4.5 Mcg Inhaler (Budesonide/Formoterol Fumarate) 10.2 Gm Hfa.aer.ad 2 Puff IH BID Isosorbide Mononitrate Er (Isosorbide Mononitrate) 120 Mg Tab.er.24h 120 Mg PO DAILY Diltiazem 24HR Cd (Diltiazem Hcl) 240 Mg Cap.er.24h 240 Mg PO DAILY NITROGLYCERIN SubLingual (Nitroglycerin) 0.4 Mg Tab.subl 0.4 Mg SL PRN Q5MIN PRN Atorvastatin Calcium 40 Mg Tablet 40 Mg PO HS Vitals/I & O Vital Sign - Last 24 Hours 11/07/16 11/07/16 11/07/16 11/07/16 15:00 15:54 16:27 19:25 Temp 97.7 98.3 97.7 98.3 Pulse 74 72 85 Resp 18 24 B/P (MAP) 138/64 (88) 134/66 143/67 (92) Pulse Ox 99 94 O2 Delivery Nasal Cannula Nasal Cannula Nasal Cannula O2 Flow Rate 3.0 2.0 3.0 11/07/16 11/07/16 11/07/16 11/07/16 19:30 19:52 19:53 21:55 Pulse 85 B/P (MAP) 143/67 Pulse Ox 95 95 O2 Delivery Nasal Cannula Nasal Cannula Nasal Cannula O2 Flow Rate 2.5 2.0 2.0 11/07/16 11/08/16 11/08/16 11/08/16 23:10 03:07 07:20 08:00 Temp 99.6 99.1 98.0 99.6 99.1 98.0 Pulse 85 80 86 Resp 22 23 24 B/P (MAP) 124/52 (76) 136/63 (87) 157/69 (98) Pulse Ox 97 100 93 O2 Delivery Nasal Cannula Nasal Cannula Nasal Cannula Nasal Cannula O2 Flow Rate 2.5 2.5 2.5 2.5 11/08/16 11/08/16 11/08/16 11/08/16 08:01 08:02 08:55 08:55 Pulse 86 86 B/P (MAP) 157/69 157/69 Pulse Ox 96 96 O2 Delivery Nasal Cannula Nasal Cannula O2 Flow Rate 2.0 2.0 11/08/16 11/08/16 11/08/16 11/08/16 08:55 08:56 11:00 12:13 Temp 99.1 99.1 Pulse 86 86 84 Resp 22 B/P (MAP) 157/69 157/69 133/59 (83) Pulse Ox 96 O2 Delivery Nasal Cannula Nasal Cannula O2 Flow Rate 2.5 2.0 Intake and Output 11/07/16 11/07/16 11/08/16 15:00 23:00 07:00 Intake Total 240 ml 1100 ml 400 ml Output Total 275 ml 1650 ml 250 ml Balance -35 ml -550 ml 150 ml JOHN PAUL BALDWIN MD Nov 08, 2016 13:33
[2016-11-08] MEDS: FUROSEMIDE 40 MG TABLET. PO SCH (14:00)
[2016-11-08 15:00] VITALS: BP 135/55
--- NOTE | 2016-11-08 15:03 | PDOC ---
PULMONARY PROGRESS NOTES Subjective no soa Vitals Vital Signs Date Time Temp Pulse Resp B/P (MAP) Pulse Ox O2 Delivery O2 Flow Rate FiO2 11/08/16 12:13 Nasal Cannula 2.0 11/08/16 11:00 99.1 84 22 133/59 (83) 96 99.1 General: Alert, No acute distress HEENT: Other Lungs: Clear, Other Cardiovascular: S1, S2 Abdomen: Soft, Non-tender, Other Extremities: No Edema Skin: Warm Labs Laboratory Tests Test 11/06/16 16:52 11/06/16 22:08 11/07/16 04:00 11/07/16 07:08 Glucose (Fingerstick) 174 mg/dL (70-99) 95 mg/dL (70-99) White Blood Count 7.1 x10^3/uL (4.0-11.0) Red Blood Count 3.33 x10^6/uL (4.30-5.70) Hemoglobin 9.1 g/dL (13.0-17.5) Hematocrit 28.6 % (39.0-53.0) Mean Corpuscular Volume 86 fL (79-100) Mean Corpuscular Hemoglobin 27 pg (25-35) Mean Corpuscular Hemoglobin Concent 32 g/dL (31-37) Red Cell Distribution Width 16.8 % (11.5-14.5) Platelet Count 215 x10^3/uL (140-400) Neutrophils (%) (Auto) 66 % (31-73) Lymphocytes (%) (Auto) 20 % (24-48) Monocytes (%) (Auto) 10 % (0-9) Eosinophils (%) (Auto) 4 % (0-3) Basophils (%) (Auto) 1 % (0-3) Neutrophils # (Auto) 4.7 x10^3uL (1.8-7.7) Lymphocytes # (Auto) 1.4 x10^3/uL (1.0-4.8) Monocytes # (Auto) 0.7 x10^3/uL (0.0-1.1) Eosinophils # (Auto) 0.3 x10^3/uL (0.0-0.7) Basophils # (Auto) 0.1 x10^3/uL (0.0-0.2) Sodium Level 141 mmol/L (136-145) Potassium Level 4.4 mmol/L (3.5-5.1) Chloride Level 103 mmol/L (98-107) Carbon Dioxide Level 33 mmol/L (21-32) Anion Gap 5 (6-14) Blood Urea Nitrogen 25 mg/dL (8-26) Creatinine 1.4 mg/dL (0.7-1.3) Estimated GFR (Cockcroft-Gault) 59.9 Glucose Level 57 mg/dL (70-99) Calcium Level 8.7 mg/dL (8.5-10.1) Test 11/07/16 07:48 11/07/16 11:55 11/07/16 16:56 11/07/16 21:52 Glucose (Fingerstick) 67 mg/dL (70-99) 113 mg/dL (70-99) 111 mg/dL (70-99) 170 mg/dL (70-99) Test 11/08/16 04:15 11/08/16 07:30 11/08/16 11:25 White Blood Count 6.0 x10^3/uL (4.0-11.0) Red Blood Count 3.33 x10^6/uL (4.30-5.70) Hemoglobin 9.0 g/dL (13.0-17.5) Hematocrit 28.2 % (39.0-53.0) Mean Corpuscular Volume 85 fL (79-100) Mean Corpuscular Hemoglobin 27 pg (25-35) Mean Corpuscular Hemoglobin Concent 32 g/dL (31-37) Red Cell Distribution Width 16.9 % (11.5-14.5) Platelet Count 254 x10^3/uL (140-400) Neutrophils (%) (Auto) 66 % (31-73) Lymphocytes (%) (Auto) 20 % (24-48) Monocytes (%) (Auto) 11 % (0-9) Eosinophils (%) (Auto) 3 % (0-3) Basophils (%) (Auto) 1 % (0-3) Neutrophils # (Auto) 3.9 x10^3uL (1.8-7.7) Lymphocytes # (Auto) 1.2 x10^3/uL (1.0-4.8) Monocytes # (Auto) 0.7 x10^3/uL (0.0-1.1) Eosinophils # (Auto) 0.2 x10^3/uL (0.0-0.7) Basophils # (Auto) 0.0 x10^3/uL (0.0-0.2) Sodium Level 142 mmol/L (136-145) Potassium Level 4.0 mmol/L (3.5-5.1) Chloride Level 101 mmol/L (98-107) Carbon Dioxide Level 37 mmol/L (21-32) Anion Gap 4 (6-14) Blood Urea Nitrogen 28 mg/dL (8-26) Creatinine 1.7 mg/dL (0.7-1.3) Estimated GFR (Cockcroft-Gault) 47.9 Glucose Level 71 mg/dL (70-99) Calcium Level 8.1 mg/dL (8.5-10.1) Glucose (Fingerstick) 81 mg/dL (70-99) 172 mg/dL (70-99) Laboratory Tests Test 11/07/16 16:56 11/07/16 21:52 11/08/16 04:15 11/08/16 07:30 Glucose (Fingerstick) 111 mg/dL (70-99) 170 mg/dL (70-99) 81 mg/dL (70-99) White Blood Count 6.0 x10^3/uL (4.0-11.0) Red Blood Count 3.33 x10^6/uL (4.30-5.70) Hemoglobin 9.0 g/dL (13.0-17.5) Hematocrit 28.2 % (39.0-53.0) Mean Corpuscular Volume 85 fL (79-100) Mean Corpuscular Hemoglobin 27 pg (25-35) Mean Corpuscular Hemoglobin Concent 32 g/dL (31-37) Red Cell Distribution Width 16.9 % (11.5-14.5) Platelet Count 254 x10^3/uL (140-400) Neutrophils (%) (Auto) 66 % (31-73) Lymphocytes (%) (Auto) 20 % (24-48) Monocytes (%) (Auto) 11 % (0-9) Eosinophils (%) (Auto) 3 % (0-3) Basophils (%) (Auto) 1 % (0-3) Neutrophils # (Auto) 3.9 x10^3uL (1.8-7.7) Lymphocytes # (Auto) 1.2 x10^3/uL (1.0-4.8) Monocytes # (Auto) 0.7 x10^3/uL (0.0-1.1) Eosinophils # (Auto) 0.2 x10^3/uL (0.0-0.7) Basophils # (Auto) 0.0 x10^3/uL (0.0-0.2) Sodium Level 142 mmol/L (136-145) Potassium Level 4.0 mmol/L (3.5-5.1) Chloride Level 101 mmol/L (98-107) Carbon Dioxide Level 37 mmol/L (21-32) Anion Gap 4 (6-14) Blood Urea Nitrogen 28 mg/dL (8-26) Creatinine 1.7 mg/dL (0.7-1.3) Estimated GFR (Cockcroft-Gault) 47.9 Glucose Level 71 mg/dL (70-99) Calcium Level 8.1 mg/dL (8.5-10.1) Test 11/08/16 11:25 Glucose (Fingerstick) 172 mg/dL (70-99) Medications Active Scripts Medications Dose Route/Sig Max Daily Dose Days Date Category Norvasc (Amlodipine Besylate) 10 Mg Tablet 10 Mg PO DAILY 30 10/07/16 Rx Levemir (Insulin Detemir) 100 Unit/1 Ml Vial 10 Unit SQ QHS 30 10/07/16 Rx Lasix (Furosemide) 40 Mg Tablet 1 Tab PO DAILY 10/07/16 Rx Plavix (Clopidogrel Bisulfate) 75 Mg Tablet 1 Tab PO DAILY 10/07/16 Rx Advair 100-50 Diskus (Fluticasone/Salmeterol) 1 Each Disk.w.dev 1 Puff IH BID 06/21/16 Reported Symbicort 160-4.5 Mcg Inhaler (Budesonide/Formoterol Fumarate) 10.2 Gm Hfa.aer.ad 2 Puff IH BID 06/21/16 Reported Isosorbide Mononitrate Er (Isosorbide Mononitrate) 120 Mg Tab.er.24h 120 Mg PO DAILY 06/21/16 Reported Diltiazem 24HR Cd (Diltiazem Hcl) 240 Mg Cap.er.24h 240 Mg PO DAILY 7/26/16 Reported NITROGLYCERIN SubLingual (Nitroglycerin) 0.4 Mg Tab.subl 0.4 Mg SL PRN Q5MIN PRN 11/18/15 Reported Atorvastatin Calcium 40 Mg Tablet 40 Mg PO HS 11/18/15 Reported Impression . 1. Dyspnea secondary to acute on chronic diastolic heart failure. 2. Lower extremity edema 3. History of previous pulmonary embolism and deep vein thrombosis. IVC filter. He was not a candidate for long-term anticoagulation and it was discontinued patient had previous 2 imaging studies and it has shown no evidence of any recurrent pulmonary embolism 4. COPD 5. Chronic diastolic heart failure. Plan . resp status is compensated continue the same 1. Continue diuresis 2. Continue present supplemental oxygen 3. Clinically I do not see a need for any further thromboembolic disease workup 4. Hospice reevaluation DOUGIE RIVAS MD Nov 08, 2016 15:03
[2016-11-08 19:15] VITALS: BP 135/61
[2016-11-08] MEDS: ATORVASTATIN CALCIUM 40 MG TABLET. PO SCH (21:04)
[2016-11-08 23:10] VITALS: BP 137/63
[2016-11-09 03:20] VITALS: BP 157/75
[2016-11-09 06:06] LABS: BASO % 1 % (0-3); EOS % 3 % (0-3); HEMATOCRIT 28.6 % (39.0-53.0); HEMOGLOBIN 9.4 g/dL (13.0-17.5); LYMPH # 1.1 x10^3/uL (1.0-4.8); LYMPH % 20 % (24-48); MEAN CORPUSCULAR HEMOGLOBIN 28 pg (25-35); MEAN CORPUSCULAR HGB CONC 33 g/dL (31-37); MEAN CORPUSCULAR VOLUME 84 fL (79-100); MONO % 12 % (0-9); NEUT % 64 % (31-73); PLATELET COUNT 251 x10^3/uL (140-400); RED CELL DISTRIBUTION WIDTH 16.7 % (11.5-14.5); WHITE BLOOD COUNT 5.4 x10^3/uL (4.0-11.0)
[2016-11-09 06:20] LABS: CALCIUM 8.8 mg/dL (8.5-10.1); CREATININE 1.5 mg/dL (0.7-1.3); GFR 55.4; POTASSIUM 4.1 mmol/L (3.5-5.1)
[2016-11-09 06:53] VITALS: BP 169/81
[2016-11-09] MEDS: INSULIN ASPART 300 UNITS/3 ML INSULN.PEN SQ SCH (08:00)
[2016-11-09] MEDS: FUROSEMIDE 40 MG TABLET. PO SCH (08:21)
[2016-11-09] MEDS: CLOPIDOGREL BISULFATE 75 MG TABLET PO SCH (08:22)
[2016-11-09] MEDS: ISOSORBIDE MONONITRATE ER 30 MG TAB.ER.24H PO SCH (08:22)
[2016-11-09] MEDS: IPRATRPIUM/ALBUTEROL 0.5/2.5MG 3 ML NEBU. NEB SCH ×2 (08:51→12:35)
[2016-11-09] MEDS: BUDESONIDE 0.5 MG/2 ML NEBU. NEB SCH (08:51)
--- NOTE | 2016-11-09 11:24 | PDOC ---
PROGRESS NOTES Chief Complaint Chief Complaint 1. Dyspnea with diastolic CHF exacerbation, PHTN 2. Acute hypoxic respi failure, hx PE, hx DVT and BLEEDINg if on AC 3 Diabetic wound, heel wound 4. 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 Mod PCM 8. High fall risk 9. Gen weakness 10. s/p R toe ampuitations 11. s/p fem pop bypass, R 12. IFC filter History of Present Illness History of Present Illness pt resting in bed this morning, he denies any complaints, discussed probable discharge today if no complications Vitals Vitals Vital Signs Date Time Temp Pulse Resp B/P (MAP) Pulse Ox O2 Delivery O2 Flow Rate FiO2 11/09/16 08:50 96 Nasal Cannula 2.0 11/09/16 08:22 85 165/94 11/09/16 06:53 97.8 20 97.8 Physical Exam General: Alert, Oriented X3, Cooperative, No acute distress Heart: Regular rate, No murmurs Lungs: Clear, Other Abdomen: Normal bowel sounds Extremities: No clubbing, No edema Skin: No rashes, No breakdown Labs LABS Laboratory Tests Test 11/08/16 11:25 11/08/16 16:55 11/08/16 21:06 11/09/16 05:15 Glucose (Fingerstick) 172 mg/dL (70-99) 122 mg/dL (70-99) 241 mg/dL (70-99) White Blood Count 5.4 x10^3/uL (4.0-11.0) Red Blood Count 3.40 x10^6/uL (4.30-5.70) Hemoglobin 9.4 g/dL (13.0-17.5) Hematocrit 28.6 % (39.0-53.0) Mean Corpuscular Volume 84 fL (79-100) Mean Corpuscular Hemoglobin 28 pg (25-35) Mean Corpuscular Hemoglobin Concent 33 g/dL (31-37) Red Cell Distribution Width 16.7 % (11.5-14.5) Platelet Count 251 x10^3/uL (140-400) Neutrophils (%) (Auto) 64 % (31-73) Lymphocytes (%) (Auto) 20 % (24-48) Monocytes (%) (Auto) 12 % (0-9) Eosinophils (%) (Auto) 3 % (0-3) Basophils (%) (Auto) 1 % (0-3) Neutrophils # (Auto) 3.5 x10^3uL (1.8-7.7) Lymphocytes # (Auto) 1.1 x10^3/uL (1.0-4.8) Monocytes # (Auto) 0.6 x10^3/uL (0.0-1.1) Eosinophils # (Auto) 0.2 x10^3/uL (0.0-0.7) Basophils # (Auto) 0.0 x10^3/uL (0.0-0.2) Sodium Level 138 mmol/L (136-145) Potassium Level 4.1 mmol/L (3.5-5.1) Chloride Level 99 mmol/L (98-107) Carbon Dioxide Level 36 mmol/L (21-32) Anion Gap 3 (6-14) Blood Urea Nitrogen 30 mg/dL (8-26) Creatinine 1.5 mg/dL (0.7-1.3) Estimated GFR (Cockcroft-Gault) 55.4 Glucose Level 97 mg/dL (70-99) Calcium Level 8.8 mg/dL (8.5-10.1) Test 11/09/16 07:45 Glucose (Fingerstick) 114 mg/dL (70-99) Review of Systems Review of Systems denies N/V/D and OROURKE Assessment and Plan Assessmemt and Plan Assessment 1. Dyspnea with diastolic CHF exacerbation, PHTN 2. Acute hypoxic respi failure, hx PE, hx DVT and BLEEDINg if on AC 3 Diabetic wound, heel wound 4. 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 Mod PCM 8. High fall risk 9. Gen weakness 10. s/p R toe ampuitations 11. s/p fem pop bypass, R 12. IFC filter Plan 1. Cont lasix 40 mg BID PO, switched from IV 2. Duoneb 3. DVT ppx 4. DCed levemir, cont SSI 5. Wound care 6. Discussed plan of care with nursing 7. Continue home meds 8. Appreciate subspecialty input 9. Probable DC today if okay per subspecialties Problems: Comment Review of Relevant I have reviewed the following items valerie (where applicable) has been applied. Labs Laboratory Tests Test 11/07/16 11:55 11/07/16 16:56 11/07/16 21:52 11/08/16 04:15 Glucose (Fingerstick) 113 mg/dL (70-99) 111 mg/dL (70-99) 170 mg/dL (70-99) White Blood Count 6.0 x10^3/uL (4.0-11.0) Red Blood Count 3.33 x10^6/uL (4.30-5.70) Hemoglobin 9.0 g/dL (13.0-17.5) Hematocrit 28.2 % (39.0-53.0) Mean Corpuscular Volume 85 fL (79-100) Mean Corpuscular Hemoglobin 27 pg (25-35) Mean Corpuscular Hemoglobin Concent 32 g/dL (31-37) Red Cell Distribution Width 16.9 % (11.5-14.5) Platelet Count 254 x10^3/uL (140-400) Neutrophils (%) (Auto) 66 % (31-73) Lymphocytes (%) (Auto) 20 % (24-48) Monocytes (%) (Auto) 11 % (0-9) Eosinophils (%) (Auto) 3 % (0-3) Basophils (%) (Auto) 1 % (0-3) Neutrophils # (Auto) 3.9 x10^3uL (1.8-7.7) Lymphocytes # (Auto) 1.2 x10^3/uL (1.0-4.8) Monocytes # (Auto) 0.7 x10^3/uL (0.0-1.1) Eosinophils # (Auto) 0.2 x10^3/uL (0.0-0.7) Basophils # (Auto) 0.0 x10^3/uL (0.0-0.2) Sodium Level 142 mmol/L (136-145) Potassium Level 4.0 mmol/L (3.5-5.1) Chloride Level 101 mmol/L (98-107) Carbon Dioxide Level 37 mmol/L (21-32) Anion Gap 4 (6-14) Blood Urea Nitrogen 28 mg/dL (8-26) Creatinine 1.7 mg/dL (0.7-1.3) Estimated GFR (Cockcroft-Gault) 47.9 Glucose Level 71 mg/dL (70-99) Calcium Level 8.1 mg/dL (8.5-10.1) Test 11/08/16 07:30 11/08/16 11:25 11/08/16 16:55 11/08/16 21:06 Glucose (Fingerstick) 81 mg/dL (70-99) 172 mg/dL (70-99) 122 mg/dL (70-99) 241 mg/dL (70-99) Test 11/09/16 05:15 11/09/16 07:45 White Blood Count 5.4 x10^3/uL (4.0-11.0) Red Blood Count 3.40 x10^6/uL (4.30-5.70) Hemoglobin 9.4 g/dL (13.0-17.5) Hematocrit 28.6 % (39.0-53.0) Mean Corpuscular Volume 84 fL (79-100) Mean Corpuscular Hemoglobin 28 pg (25-35) Mean Corpuscular Hemoglobin Concent 33 g/dL (31-37) Red Cell Distribution Width 16.7 % (11.5-14.5) Platelet Count 251 x10^3/uL (140-400) Neutrophils (%) (Auto) 64 % (31-73) Lymphocytes (%) (Auto) 20 % (24-48) Monocytes (%) (Auto) 12 % (0-9) Eosinophils (%) (Auto) 3 % (0-3) Basophils (%) (Auto) 1 % (0-3) Neutrophils # (Auto) 3.5 x10^3uL (1.8-7.7) Lymphocytes # (Auto) 1.1 x10^3/uL (1.0-4.8) Monocytes # (Auto) 0.6 x10^3/uL (0.0-1.1) Eosinophils # (Auto) 0.2 x10^3/uL (0.0-0.7) Basophils # (Auto) 0.0 x10^3/uL (0.0-0.2) Sodium Level 138 mmol/L (136-145) Potassium Level 4.1 mmol/L (3.5-5.1) Chloride Level 99 mmol/L (98-107) Carbon Dioxide Level 36 mmol/L (21-32) Anion Gap 3 (6-14) Blood Urea Nitrogen 30 mg/dL (8-26) Creatinine 1.5 mg/dL (0.7-1.3) Estimated GFR (Cockcroft-Gault) 55.4 Glucose Level 97 mg/dL (70-99) Calcium Level 8.8 mg/dL (8.5-10.1) Glucose (Fingerstick) 114 mg/dL (70-99) Laboratory Tests Test 11/08/16 11:25 11/08/16 16:55 11/08/16 21:06 11/09/16 05:15 Glucose (Fingerstick) 172 mg/dL (70-99) 122 mg/dL (70-99) 241 mg/dL (70-99) White Blood Count 5.4 x10^3/uL (4.0-11.0) Red Blood Count 3.40 x10^6/uL (4.30-5.70) Hemoglobin 9.4 g/dL (13.0-17.5) Hematocrit 28.6 % (39.0-53.0) Mean Corpuscular Volume 84 fL (79-100) Mean Corpuscular Hemoglobin 28 pg (25-35) Mean Corpuscular Hemoglobin Concent 33 g/dL (31-37) Red Cell Distribution Width 16.7 % (11.5-14.5) Platelet Count 251 x10^3/uL (140-400) Neutrophils (%) (Auto) 64 % (31-73) Lymphocytes (%) (Auto) 20 % (24-48) Monocytes (%) (Auto) 12 % (0-9) Eosinophils (%) (Auto) 3 % (0-3) Basophils (%) (Auto) 1 % (0-3) Neutrophils # (Auto) 3.5 x10^3uL (1.8-7.7) Lymphocytes # (Auto) 1.1 x10^3/uL (1.0-4.8) Monocytes # (Auto) 0.6 x10^3/uL (0.0-1.1) Eosinophils # (Auto) 0.2 x10^3/uL (0.0-0.7) Basophils # (Auto) 0.0 x10^3/uL (0.0-0.2) Sodium Level 138 mmol/L (136-145) Potassium Level 4.1 mmol/L (3.5-5.1) Chloride Level 99 mmol/L (98-107) Carbon Dioxide Level 36 mmol/L (21-32) Anion Gap 3 (6-14) Blood Urea Nitrogen 30 mg/dL (8-26) Creatinine 1.5 mg/dL (0.7-1.3) Estimated GFR (Cockcroft-Gault) 55.4 Glucose Level 97 mg/dL (70-99) Calcium Level 8.8 mg/dL (8.5-10.1) Test 11/09/16 07:45 Glucose (Fingerstick) 114 mg/dL (70-99) Medications Current Medications Albuterol Sulfate (Ventolin Neb Soln) 10 mg 1X ONCE CONT NEB Last administered on 11/05/16 19:22; Start 11/05/16 at 19:00; Stop 11/05/16 at 19:01 ; Status DC Ipratropium Emerson (Atrovent) 0.5 mg 1X ONCE NEB Last administered on 19:22; Start 11/05/16 at 19:00; Stop 11/05/16 at 19:01; Status DC Furosemide (Lasix) 40 mg 1X ONCE IVP Last administered on 11/05/16 20:18; Start 11/05/16 at 20:15; Stop 11/05/16 at 20:16; Status DC Ondansetron HCl (Zofran) 4 mg PRN Q8HRS PRN IV NAUSEA/VOMITING; Start 11/05/16 at 20:15; Stop 11/05/16 at 20:23; Status DC Furosemide (Lasix) 40 mg BID92 IVP Last administered on 11/08/16 08:56; Start 11/06/16 at 09:00; Stop 11/08/16 at 12:19; Status DC Ondansetron HCl (Zofran) 4 mg PRN Q6HRS PRN IV NAUSEA/VOMITING; Start 11/05/16 at 20:20; Stop 11/06/16 at 20:19; Status DC Insulin Aspart (NovoLOG) 0-7 UNITS TIDWMEALS SQ Last administered on 11/08/16 12:40; Start 11/05/16 at 21:00 Dextrose (Dextrose 50%-Water Syringe) 12.5 gm PRN Q15MIN PRN IV SEE COMMENTS; Start 11/05/16 at 20:30 Albuterol/ Ipratropium (Duoneb) 3 ml RTQID NEB Last administered on 11/09/16 08:51; Start 11/05/16 at 21:00 Amlodipine Besylate (Norvasc) 10 mg DAILY PO Last administered on 11/08/16 08: 55; Start 11/06/16 at 09:00; Stop 11/08/16 at 12:17; Status DC Atorvastatin Calcium (Lipitor) 40 mg HS PO Last administered on 11/08/16 21:04 ; Start 11/05/16 at 21:00 Clopidogrel Bisulfate (Plavix) 75 mg DAILY PO Last administered on 11/09/16 08 :22; Start 11/06/16 at 09:00 Diltiazem HCl (Cardizem 24hr Cd) 240 mg DAILY PO Last administered on 08:55; Start 11/06/16 at 09:00; Stop 11/08/16 at 12:17; Status DC Nitroglycerin (Nitrostat) 0.4 mg PRN Q5MIN PRN SL CHEST PAIN; Start 11/05/16 at 20:30 Non-Formulary Medication 2 puff BID IH ; Start 11/05/16 at 21:00; Status UNV Budesonide (Pulmicort) 0.5 mg RTBID NEB Last administered on 11/09/16 08:51; Start 11/05/16 at 21:00 Insulin Detemir (Levemir) 10 units QHS SQ Last administered on 11/07/16 21:59 ; Start 11/05/16 at 21:00; Stop 11/08/16 at 13:32; Status DC Isosorbide Mononitrate (Imdur) 120 mg DAILY PO Last administered on 11/09/16 08:22; Start 11/06/16 at 09:00 Sodium Chloride 1,000 ml @ 1,000 mls/hr 1X ONCE IV ; Start 11/05/16 at 21:30; Stop 11/05/16 at 22:29; Status DC Labetalol HCl (Normodyne) 10 mg PRN Q2HR PRN IVP HYPERTENSION, SEE COMMENTS Last administered on 11/06/16 04:40; Start 11/06/16 at 01:15 Hydralazine HCl (Apresoline) 50 mg TID PO Last administered on 11/09/16 08:21 ; Start 11/06/16 at 11:00 Acetaminophen (Tylenol) 650 mg PRN Q6HRS PRN PO FEVER; Start 11/06/16 at 14:30 Ondansetron HCl (Zofran) 4 mg PRN Q6HRS PRN IV NAUSEA/VOMITING; Start 11/06/16 at 14:30 Morphine Sulfate 2 mg PRN Q2HR PRN IV PAIN; Start 11/06/16 at 14:30 Tramadol HCl (Ultram) 50 mg PRN Q6HRS PRN PO PAIN; Start 11/06/16 at 14:30 Hydralazine HCl (Apresoline) 10 mg PRN Q4HRS PRN IVP ELEVATED BP, SEE COMMENTS ; Start 11/06/16 at 14:30 Docusate Sodium (Colace) 100 mg PRN DAILY PRN PO CONSTIPATION; Start 11/06/16 at 14:30 Diltiazem HCl (Cardizem Cd) 300 mg DAILY PO Last administered on 11/09/16 08: 21; Start 11/09/16 at 09:00 Furosemide (Lasix) 40 mg DAILY PO Last administered on 11/09/16 08:21; Start 11/08/16 at 14:00 Active Scripts Active Norvasc (Amlodipine Besylate) 10 Mg Tablet 10 Mg PO DAILY 30 Days Levemir (Insulin Detemir) 100 Unit/1 Ml Vial 10 Unit SQ QHS 30 Days Lasix (Furosemide) 40 Mg Tablet 1 Tab PO DAILY Plavix (Clopidogrel Bisulfate) 75 Mg Tablet 1 Tab PO DAILY Reported Advair 100-50 Diskus (Fluticasone/Salmeterol) 1 Each Disk.w.dev 1 Puff IH BID Symbicort 160-4.5 Mcg Inhaler (Budesonide/Formoterol Fumarate) 10.2 Gm Hfa.aer.ad 2 Puff IH BID Isosorbide Mononitrate Er (Isosorbide Mononitrate) 120 Mg Tab.er.24h 120 Mg PO DAILY Diltiazem 24HR Cd (Diltiazem Hcl) 240 Mg Cap.er.24h 240 Mg PO DAILY NITROGLYCERIN SubLingual (Nitroglycerin) 0.4 Mg Tab.subl 0.4 Mg SL PRN Q5MIN PRN Atorvastatin Calcium 40 Mg Tablet 40 Mg PO HS Vitals/I & O Vital Sign - Last 24 Hours 11/08/16 11/08/16 11/08/16 11/08/16 12:13 15:00 15:13 16:03 Temp 98.9 98.9 Pulse 77 84 Resp 20 B/P (MAP) 135/55 (81) 133/59 Pulse Ox 96 O2 Delivery Nasal Cannula Nasal Cannula Nasal Cannula O2 Flow Rate 2.0 2.5 2.0 11/08/16 11/08/16 11/08/16 11/08/16 19:14 19:15 19:57 21:05 Temp 98.3 98.3 Pulse 86 83 Resp 18 B/P (MAP) 135/61 (85) 135/61 Pulse Ox 93 96 O2 Delivery Nasal Cannula Nasal Cannula Nasal Cannula O2 Flow Rate 2.0 2.5 2.5 11/08/16 11/09/16 11/09/16 11/09/16 23:10 03:20 06:53 08:00 Temp 98.0 98.7 97.8 98.0 98.7 97.8 Pulse 80 83 85 Resp 15 21 20 B/P (MAP) 137/63 (87) 157/75 (102) 169/81 (110) Pulse Ox 97 96 99 O2 Delivery Nasal Cannula Nasal Cannula Nasal Cannula Nasal Cannula O2 Flow Rate 2.5 3.0 3.0 3.0 11/09/16 11/09/16 11/09/16 11/09/16 08:21 08:21 08:22 08:50 Pulse 85 85 85 B/P (MAP) 165/94 169/81 165/94 Pulse Ox 96 O2 Delivery Nasal Cannula O2 Flow Rate 2.0 Intake and Output 11/08/16 11/08/16 11/09/16 15:00 23:00 07:00 Intake Total 120 ml 240 ml 600 ml Output Total 750 ml 500 ml Balance 120 ml -510 ml 100 ml Nutrition Consultation Dietary Evaluation: Recommendations by RD: Increase Calorie Intake, Protein supplementation Comments: Rec. add the cardiac diet due to PmHx Continue the boost glucose control protein shakes TID to meet pt's increased nutrition needs Rec. a daily MVT and 500 mg Vitamin C /day to aide with wound healing Expected Outcomes/Goals: meet 75% estimated nutrition needs Malnutrition Findings: Reduced First Assistant Strength: N/A Weight Status: Overweight Fluid Accumulation (N/A): N/A JUHI FRANCIS III, DO Nov 09, 2016 11:24
--- NOTE | 2016-11-09 11:26 | PDOC ---
CARDIO Progress Notes Date and Time Date of Service 11/09/2016 Time of Evaluation 1100 Subjective Subjective: No Chest Pain, No Palpitations, No Dizziness, Other (slightly SOA today but feels ok) Vitals Vitals Vital Signs Date Time Temp Pulse Resp B/P (MAP) Pulse Ox O2 Delivery O2 Flow Rate FiO2 11/09/16 08:50 96 Nasal Cannula 2.0 11/09/16 08:22 85 165/94 11/09/16 06:53 97.8 20 97.8 Weight Weight [ ] Input and Output Intake and Output Intake and Output 11/09/16 07:00 Intake Total 960 ml Output Total 1250 ml Balance -290 ml Intake Oral 960 ml Output Urine Total 1250 ml Laboratory Labs Laboratory Tests Test 11/08/16 11:25 11/08/16 16:55 11/08/16 21:06 11/09/16 05:15 Glucose (Fingerstick) 172 mg/dL (70-99) 122 mg/dL (70-99) 241 mg/dL (70-99) White Blood Count 5.4 x10^3/uL (4.0-11.0) Red Blood Count 3.40 x10^6/uL (4.30-5.70) Hemoglobin 9.4 g/dL (13.0-17.5) Hematocrit 28.6 % (39.0-53.0) Mean Corpuscular Volume 84 fL (79-100) Mean Corpuscular Hemoglobin 28 pg (25-35) Mean Corpuscular Hemoglobin Concent 33 g/dL (31-37) Red Cell Distribution Width 16.7 % (11.5-14.5) Platelet Count 251 x10^3/uL (140-400) Neutrophils (%) (Auto) 64 % (31-73) Lymphocytes (%) (Auto) 20 % (24-48) Monocytes (%) (Auto) 12 % (0-9) Eosinophils (%) (Auto) 3 % (0-3) Basophils (%) (Auto) 1 % (0-3) Neutrophils # (Auto) 3.5 x10^3uL (1.8-7.7) Lymphocytes # (Auto) 1.1 x10^3/uL (1.0-4.8) Monocytes # (Auto) 0.6 x10^3/uL (0.0-1.1) Eosinophils # (Auto) 0.2 x10^3/uL (0.0-0.7) Basophils # (Auto) 0.0 x10^3/uL (0.0-0.2) Sodium Level 138 mmol/L (136-145) Potassium Level 4.1 mmol/L (3.5-5.1) Chloride Level 99 mmol/L (98-107) Carbon Dioxide Level 36 mmol/L (21-32) Anion Gap 3 (6-14) Blood Urea Nitrogen 30 mg/dL (8-26) Creatinine 1.5 mg/dL (0.7-1.3) Estimated GFR (Cockcroft-Gault) 55.4 Glucose Level 97 mg/dL (70-99) Calcium Level 8.8 mg/dL (8.5-10.1) Test 11/09/16 07:45 Glucose (Fingerstick) 114 mg/dL (70-99) Physical Exam HEENT: Neck Supple W Full Motion Chest: Symmetric LUNGS: Other (basilar crackles) Heart: S1S2, RRR (SR) Abdomen: Soft N/T Extremities: No Calf Tenderness, Other (2-3+ bilateral LE pitting edema) Neurology: alert, oriented, follow commands Assessment Assessment 1. Acute on chronic diastolic CHF 2. Accelerated HTN: labile 3. Acute on chronic respiratory failure with COPD/pulmonary HTN 4. CKD 5. 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 Continue current regimen. Add hydralazine 2. Continue diuretic therapy. PCXR 3. Continue secondary prevention 4. Apparently pt was on hospice prior to admission, then revoked and hospice will be reinstated per PCP, nothing further. SHIVA JEREZ APRN Nov 09, 2016 11:26
[2016-11-09] MEDS ORDERED: FUROSEMIDE 40 MG/4 ML VIAL. IVP ONE (12:00)
--- NOTE | 2016-11-09 12:00 | PDOC3 ---
Discharge Summary Visit Information Date of Discharge: Nov 09, 2016 Final Diagnosis Problems Medical Problems: (1) Congestive heart failure Status: Acute Brief Hospital Course Allergies Allergies Coded Allergies Type Severity Reaction Last Updated Verified lisinopril Allergy Severe Anaphylaxis 09/30/16 Yes Vital Signs Vital Signs Date Time Temp Pulse Resp B/P (MAP) Pulse Ox O2 Delivery O2 Flow Rate FiO2 11/09/16 08:50 96 Nasal Cannula 2.0 11/09/16 08:22 85 165/94 11/09/16 06:53 97.8 20 97.8 Lab Results Laboratory Tests Test 11/07/16 16:56 11/07/16 21:52 11/08/16 04:15 11/08/16 07:30 Glucose (Fingerstick) 111 mg/dL (70-99) 170 mg/dL (70-99) 81 mg/dL (70-99) White Blood Count 6.0 x10^3/uL (4.0-11.0) Red Blood Count 3.33 x10^6/uL (4.30-5.70) Hemoglobin 9.0 g/dL (13.0-17.5) Hematocrit 28.2 % (39.0-53.0) Mean Corpuscular Volume 85 fL (79-100) Mean Corpuscular Hemoglobin 27 pg (25-35) Mean Corpuscular Hemoglobin Concent 32 g/dL (31-37) Red Cell Distribution Width 16.9 % (11.5-14.5) Platelet Count 254 x10^3/uL (140-400) Neutrophils (%) (Auto) 66 % (31-73) Lymphocytes (%) (Auto) 20 % (24-48) Monocytes (%) (Auto) 11 % (0-9) Eosinophils (%) (Auto) 3 % (0-3) Basophils (%) (Auto) 1 % (0-3) Neutrophils # (Auto) 3.9 x10^3uL (1.8-7.7) Lymphocytes # (Auto) 1.2 x10^3/uL (1.0-4.8) Monocytes # (Auto) 0.7 x10^3/uL (0.0-1.1) Eosinophils # (Auto) 0.2 x10^3/uL (0.0-0.7) Basophils # (Auto) 0.0 x10^3/uL (0.0-0.2) Sodium Level 142 mmol/L (136-145) Potassium Level 4.0 mmol/L (3.5-5.1) Chloride Level 101 mmol/L (98-107) Carbon Dioxide Level 37 mmol/L (21-32) Anion Gap 4 (6-14) Blood Urea Nitrogen 28 mg/dL (8-26) Creatinine 1.7 mg/dL (0.7-1.3) Estimated GFR (Cockcroft-Gault) 47.9 Glucose Level 71 mg/dL (70-99) Calcium Level 8.1 mg/dL (8.5-10.1) Test 11/08/16 11:25 11/08/16 16:55 11/08/16 21:06 11/09/16 05:15 Glucose (Fingerstick) 172 mg/dL (70-99) 122 mg/dL (70-99) 241 mg/dL (70-99) White Blood Count 5.4 x10^3/uL (4.0-11.0) Red Blood Count 3.40 x10^6/uL (4.30-5.70) Hemoglobin 9.4 g/dL (13.0-17.5) Hematocrit 28.6 % (39.0-53.0) Mean Corpuscular Volume 84 fL (79-100) Mean Corpuscular Hemoglobin 28 pg (25-35) Mean Corpuscular Hemoglobin Concent 33 g/dL (31-37) Red Cell Distribution Width 16.7 % (11.5-14.5) Platelet Count 251 x10^3/uL (140-400) Neutrophils (%) (Auto) 64 % (31-73) Lymphocytes (%) (Auto) 20 % (24-48) Monocytes (%) (Auto) 12 % (0-9) Eosinophils (%) (Auto) 3 % (0-3) Basophils (%) (Auto) 1 % (0-3) Neutrophils # (Auto) 3.5 x10^3uL (1.8-7.7) Lymphocytes # (Auto) 1.1 x10^3/uL (1.0-4.8) Monocytes # (Auto) 0.6 x10^3/uL (0.0-1.1) Eosinophils # (Auto) 0.2 x10^3/uL (0.0-0.7) Basophils # (Auto) 0.0 x10^3/uL (0.0-0.2) Sodium Level 138 mmol/L (136-145) Potassium Level 4.1 mmol/L (3.5-5.1) Chloride Level 99 mmol/L (98-107) Carbon Dioxide Level 36 mmol/L (21-32) Anion Gap 3 (6-14) Blood Urea Nitrogen 30 mg/dL (8-26) Creatinine 1.5 mg/dL (0.7-1.3) Estimated GFR (Cockcroft-Gault) 55.4 Glucose Level 97 mg/dL (70-99) Calcium Level 8.8 mg/dL (8.5-10.1) Test 11/09/16 07:45 11/09/16 11:27 Glucose (Fingerstick) 114 mg/dL (70-99) 177 mg/dL (70-99) Laboratory Tests Test 11/08/16 16:55 11/08/16 21:06 11/09/16 05:15 11/09/16 07:45 Glucose (Fingerstick) 122 mg/dL (70-99) 241 mg/dL (70-99) 114 mg/dL (70-99) White Blood Count 5.4 x10^3/uL (4.0-11.0) Red Blood Count 3.40 x10^6/uL (4.30-5.70) Hemoglobin 9.4 g/dL (13.0-17.5) Hematocrit 28.6 % (39.0-53.0) Mean Corpuscular Volume 84 fL (79-100) Mean Corpuscular Hemoglobin 28 pg (25-35) Mean Corpuscular Hemoglobin Concent 33 g/dL (31-37) Red Cell Distribution Width 16.7 % (11.5-14.5) Platelet Count 251 x10^3/uL (140-400) Neutrophils (%) (Auto) 64 % (31-73) Lymphocytes (%) (Auto) 20 % (24-48) Monocytes (%) (Auto) 12 % (0-9) Eosinophils (%) (Auto) 3 % (0-3) Basophils (%) (Auto) 1 % (0-3) Neutrophils # (Auto) 3.5 x10^3uL (1.8-7.7) Lymphocytes # (Auto) 1.1 x10^3/uL (1.0-4.8) Monocytes # (Auto) 0.6 x10^3/uL (0.0-1.1) Eosinophils # (Auto) 0.2 x10^3/uL (0.0-0.7) Basophils # (Auto) 0.0 x10^3/uL (0.0-0.2) Sodium Level 138 mmol/L (136-145) Potassium Level 4.1 mmol/L (3.5-5.1) Chloride Level 99 mmol/L (98-107) Carbon Dioxide Level 36 mmol/L (21-32) Anion Gap 3 (6-14) Blood Urea Nitrogen 30 mg/dL (8-26) Creatinine 1.5 mg/dL (0.7-1.3) Estimated GFR (Cockcroft-Gault) 55.4 Glucose Level 97 mg/dL (70-99) Calcium Level 8.8 mg/dL (8.5-10.1) Test 11/09/16 11:27 Glucose (Fingerstick) 177 mg/dL (70-99) Brief Hospital Course Mr. Lloyd is a 76 old [sex] who presented with [CHF. Admitted, diuresed Consulted cards and Pall care This am pt is seen and examined Pt request dc Will dc with hospice if family and pt will agree Total time 34 minutes ] Discharge Information Scheduled Amlodipine Besylate (Norvasc), 10 MG PO DAILY Atorvastatin Calcium (Atorvastatin Calcium), 40 MG PO HS, (Reported) Budesonide/Formoterol Fumarate (Symbicort 160-4.5 Mcg Inhaler), 2 PUFF IH BID, ( Reported) Clopidogrel Bisulfate (Plavix), 1 TAB PO DAILY Diltiazem Hcl (Diltiazem 24HR Cd), 240 MG PO DAILY, (Reported) Fluticasone/Salmeterol (Advair 100-50 Diskus), 1 PUFF IH BID, (Reported) Furosemide (Lasix), 1 TAB PO DAILY Insulin Detemir (Levemir), 10 UNIT SQ QHS Isosorbide Mononitrate (Isosorbide Mononitrate Er), 120 MG PO DAILY, (Reported) Scheduled PRN Nitroglycerin (NITROGLYCERIN SubLingual), 0.4 MG SL PRN Q5MIN PRN for CHEST PAIN , (Reported) JUHI FRANCIS III DO Nov 09, 2016 12:00
--- NOTE | 2016-11-09 13:13 | RAD ---
INDICATION: chf COMPARISON: 11/05/2016 FINDINGS: Single view of chest obtained. Cardiac silhouette is enlarged. Small right-sided pleural effusion again seen with patchy opacity at right lung base. Slight decrease in left basilar opacity compared to prior IMPRESSION: Persistent right-sided pleural effusion with basilar airspace consolidation which could be from atelectasis or infiltrate. There is been some interval improvement in left basilar opacity compared to prior.
[2016-11-09 14:30] VITALS: BP 145/89
--- NOTE | 2016-11-09 15:44 | PDOC ---
PULMONARY PROGRESS NOTES Subjective no soa Vitals Vital Signs Date Time Temp Pulse Resp B/P (MAP) Pulse Ox O2 Delivery O2 Flow Rate FiO2 11/09/16 14:30 85 145/89 11/09/16 12:35 92 Room Air 11/09/16 08:50 2.0 11/09/16 06:53 97.8 20 97.8 General: Alert, No acute distress HEENT: Other Lungs: Clear, Other Cardiovascular: S1, S2 Abdomen: Soft, Non-tender, Other Extremities: No Edema Skin: Warm Labs Laboratory Tests Test 11/07/16 16:56 11/07/16 21:52 11/08/16 04:15 11/08/16 07:30 Glucose (Fingerstick) 111 mg/dL (70-99) 170 mg/dL (70-99) 81 mg/dL (70-99) White Blood Count 6.0 x10^3/uL (4.0-11.0) Red Blood Count 3.33 x10^6/uL (4.30-5.70) Hemoglobin 9.0 g/dL (13.0-17.5) Hematocrit 28.2 % (39.0-53.0) Mean Corpuscular Volume 85 fL (79-100) Mean Corpuscular Hemoglobin 27 pg (25-35) Mean Corpuscular Hemoglobin Concent 32 g/dL (31-37) Red Cell Distribution Width 16.9 % (11.5-14.5) Platelet Count 254 x10^3/uL (140-400) Neutrophils (%) (Auto) 66 % (31-73) Lymphocytes (%) (Auto) 20 % (24-48) Monocytes (%) (Auto) 11 % (0-9) Eosinophils (%) (Auto) 3 % (0-3) Basophils (%) (Auto) 1 % (0-3) Neutrophils # (Auto) 3.9 x10^3uL (1.8-7.7) Lymphocytes # (Auto) 1.2 x10^3/uL (1.0-4.8) Monocytes # (Auto) 0.7 x10^3/uL (0.0-1.1) Eosinophils # (Auto) 0.2 x10^3/uL (0.0-0.7) Basophils # (Auto) 0.0 x10^3/uL (0.0-0.2) Sodium Level 142 mmol/L (136-145) Potassium Level 4.0 mmol/L (3.5-5.1) Chloride Level 101 mmol/L (98-107) Carbon Dioxide Level 37 mmol/L (21-32) Anion Gap 4 (6-14) Blood Urea Nitrogen 28 mg/dL (8-26) Creatinine 1.7 mg/dL (0.7-1.3) Estimated GFR (Cockcroft-Gault) 47.9 Glucose Level 71 mg/dL (70-99) Calcium Level 8.1 mg/dL (8.5-10.1) Test 11/08/16 11:25 11/08/16 16:55 11/08/16 21:06 11/09/16 05:15 Glucose (Fingerstick) 172 mg/dL (70-99) 122 mg/dL (70-99) 241 mg/dL (70-99) White Blood Count 5.4 x10^3/uL (4.0-11.0) Red Blood Count 3.40 x10^6/uL (4.30-5.70) Hemoglobin 9.4 g/dL (13.0-17.5) Hematocrit 28.6 % (39.0-53.0) Mean Corpuscular Volume 84 fL (79-100) Mean Corpuscular Hemoglobin 28 pg (25-35) Mean Corpuscular Hemoglobin Concent 33 g/dL (31-37) Red Cell Distribution Width 16.7 % (11.5-14.5) Platelet Count 251 x10^3/uL (140-400) Neutrophils (%) (Auto) 64 % (31-73) Lymphocytes (%) (Auto) 20 % (24-48) Monocytes (%) (Auto) 12 % (0-9) Eosinophils (%) (Auto) 3 % (0-3) Basophils (%) (Auto) 1 % (0-3) Neutrophils # (Auto) 3.5 x10^3uL (1.8-7.7) Lymphocytes # (Auto) 1.1 x10^3/uL (1.0-4.8) Monocytes # (Auto) 0.6 x10^3/uL (0.0-1.1) Eosinophils # (Auto) 0.2 x10^3/uL (0.0-0.7) Basophils # (Auto) 0.0 x10^3/uL (0.0-0.2) Sodium Level 138 mmol/L (136-145) Potassium Level 4.1 mmol/L (3.5-5.1) Chloride Level 99 mmol/L (98-107) Carbon Dioxide Level 36 mmol/L (21-32) Anion Gap 3 (6-14) Blood Urea Nitrogen 30 mg/dL (8-26) Creatinine 1.5 mg/dL (0.7-1.3) Estimated GFR (Cockcroft-Gault) 55.4 Glucose Level 97 mg/dL (70-99) Calcium Level 8.8 mg/dL (8.5-10.1) Test 11/09/16 07:45 11/09/16 11:27 Glucose (Fingerstick) 114 mg/dL (70-99) 177 mg/dL (70-99) Laboratory Tests Test 11/08/16 16:55 11/08/16 21:06 11/09/16 05:15 11/09/16 07:45 Glucose (Fingerstick) 122 mg/dL (70-99) 241 mg/dL (70-99) 114 mg/dL (70-99) White Blood Count 5.4 x10^3/uL (4.0-11.0) Red Blood Count 3.40 x10^6/uL (4.30-5.70) Hemoglobin 9.4 g/dL (13.0-17.5) Hematocrit 28.6 % (39.0-53.0) Mean Corpuscular Volume 84 fL (79-100) Mean Corpuscular Hemoglobin 28 pg (25-35) Mean Corpuscular Hemoglobin Concent 33 g/dL (31-37) Red Cell Distribution Width 16.7 % (11.5-14.5) Platelet Count 251 x10^3/uL (140-400) Neutrophils (%) (Auto) 64 % (31-73) Lymphocytes (%) (Auto) 20 % (24-48) Monocytes (%) (Auto) 12 % (0-9) Eosinophils (%) (Auto) 3 % (0-3) Basophils (%) (Auto) 1 % (0-3) Neutrophils # (Auto) 3.5 x10^3uL (1.8-7.7) Lymphocytes # (Auto) 1.1 x10^3/uL (1.0-4.8) Monocytes # (Auto) 0.6 x10^3/uL (0.0-1.1) Eosinophils # (Auto) 0.2 x10^3/uL (0.0-0.7) Basophils # (Auto) 0.0 x10^3/uL (0.0-0.2) Sodium Level 138 mmol/L (136-145) Potassium Level 4.1 mmol/L (3.5-5.1) Chloride Level 99 mmol/L (98-107) Carbon Dioxide Level 36 mmol/L (21-32) Anion Gap 3 (6-14) Blood Urea Nitrogen 30 mg/dL (8-26) Creatinine 1.5 mg/dL (0.7-1.3) Estimated GFR (Cockcroft-Gault) 55.4 Glucose Level 97 mg/dL (70-99) Calcium Level 8.8 mg/dL (8.5-10.1) Test 11/09/16 11:27 Glucose (Fingerstick) 177 mg/dL (70-99) Medications Active Scripts Medications Dose Route/Sig Max Daily Dose Days Date Category Norvasc (Amlodipine Besylate) 10 Mg Tablet 10 Mg PO DAILY 30 10/07/16 Rx Levemir (Insulin Detemir) 100 Unit/1 Ml Vial 10 Unit SQ QHS 30 10/07/16 Rx Lasix (Furosemide) 40 Mg Tablet 1 Tab PO DAILY 10/07/16 Rx Plavix (Clopidogrel Bisulfate) 75 Mg Tablet 1 Tab PO DAILY 10/07/16 Rx Advair 100-50 Diskus (Fluticasone/Salmeterol) 1 Each Disk.w.dev 1 Puff IH BID 06/21/16 Reported Symbicort 160-4.5 Mcg Inhaler (Budesonide/Formoterol Fumarate) 10.2 Gm Hfa.aer.ad 2 Puff IH BID 06/21/16 Reported Isosorbide Mononitrate Er (Isosorbide Mononitrate) 120 Mg Tab.er.24h 120 Mg PO DAILY 06/21/16 Reported Diltiazem 24HR Cd (Diltiazem Hcl) 240 Mg Cap.er.24h 240 Mg PO DAILY 11/18/15 Reported NITROGLYCERIN SubLingual (Nitroglycerin) 0.4 Mg Tab.subl 0.4 Mg SL PRN Q5MIN PRN 11/18/15 Reported Atorvastatin Calcium 40 Mg Tablet 40 Mg PO HS 11/18/15 Reported Impression . 1. Dyspnea secondary to acute on chronic diastolic heart failure. 2. Lower extremity edema 3. History of previous pulmonary embolism and deep vein thrombosis. IVC filter. He was not a candidate for long-term anticoagulation and it was discontinued patient had previous 2 imaging studies and it has shown no evidence of any recurrent pulmonary embolism 4. COPD 5. Chronic diastolic heart failure. Plan . resp status is compensated D/C HOME FOLLOW UP IN DEC SPOKE WITH DOUGIE RIVAS MD Nov 09, 2016 15:44
== END 2016-11-09 15:05 | disposition home or self-care (01) | DRG 291 ==
LOC: ER 18:16 → 2 SOUTH 20:00
PROVIDERS: ADMIT Internal Medicine; ATTEND Internal Medicine
DX: I13.0 Hypertensive heart and chronic kidney disease with heart failure and stage 1 through stage 4 chronic kidney disease, or unspecified chronic kidney disease (principal); I50.33 Acute on chronic diastolic (congestive) heart failure; J96.21 Acute and chronic respiratory failure with hypoxia; L97.419 Non-pressure chronic ulcer of right heel and midfoot with unspecified severity; E44.0 Moderate protein-calorie malnutrition; E78.5 Hyperlipidemia, unspecified; E78.00 Pure hypercholesterolemia, unspecified; E11.649 Type 2 diabetes mellitus with hypoglycemia without coma; E11.22 Type 2 diabetes mellitus with diabetic chronic kidney disease; F17.210 Nicotine dependence, cigarettes, uncomplicated; I25.10 Atherosclerotic heart disease of native coronary artery without angina pectoris; I27.2 Other secondary pulmonary hypertension; J44.9 Chronic obstructive pulmonary disease, unspecified; M19.90 Unspecified osteoarthritis, unspecified site; N18.9 Chronic kidney disease, unspecified; Z74.01 Bed confinement status; Z79.4 Long term (current) use of insulin; Z79.51 Long term (current) use of inhaled steroids; Z82.49 Family history of ischemic heart disease and other diseases of the circulatory system; Z86.711 Personal history of pulmonary embolism; Z86.718 Personal history of other venous thrombosis and embolism; Z86.74 Personal history of sudden cardiac arrest; Z91.81 History of falling; Z88.8 Allergy status to other drugs, medicaments and biological substances; I25.2 Old myocardial infarction; Z89.411 Acquired absence of right great toe; Z68.25 Body mass index [BMI] 25.0-25.9, adult
CPT/HCPCS: 36415; 71010; 80048; 80053; 81001; 82550; 82962; 83880; 84484; 85027; 85379; 85610; 85651; 93970; 94250; 94640; 94644; 94760; 96374; A6539; J1815; J1940; J3490; J7613; J7620; J7626; J7644; 97530; 99285-25

== ENCOUNTER 2016-11-11 13:25 | Inpatient (IN) | payer MEDICARE ==
[~2016-11-11] VITALS: Ht 188 cm; Wt 89.5 kg
--- NOTE | 2016-11-11 13:42 | PHYS DOC ---
Past Medical History Past Medical History: COPD, Diabetes-Type II, High Cholesterol, Hypertension, MO, Prostatitis Past Surgical History: Other Additional Past Surgical Histo: Left lower lobectomy Alcohol Use: None Drug Use: None Adult General Chief Complaint Chief Complaint: SHORTNESS OF BREATH [facility] HPI Patient is a 76 year old -[place] male who presents with shortness breath. He has a history of CHF, COPD, diabetes, PE who was just recently discharged from here. He has home health and he tells me over the last 24 hours he's been short of breath and using his breathing machine all night long. He states he can't sleep. He denies any chest pain. He denies any fevers or chills but he does have a nonproductive cough. He is unsure if this is his COPD years congestive heart failure this flared up. EMS arrived and he received one breathing treatment and felt better. Review of Systems Review of Systems Constitutional: Denies fever or chills [] Eyes: Denies change in visual acuity, redness, or eye pain [] HENT: Denies nasal congestion or sore throat [] Respiratory: Positive for cough and shortness of breath [] Cardiovascular: No additional information not addressed in HPI [] GI: Denies abdominal pain, nausea, vomiting, bloody stools or diarrhea [] : Denies dysuria or hematuria [] Musculoskeletal: Denies back pain or joint pain [] Integument: Denies rash or skin lesions [] Neurologic: Denies headache, focal weakness or sensory changes [] Endocrine: Denies polyuria or polydipsia [] Current Medications Current Medications Current Medications Medications (Trade) Dose Ordered Sig/[facility] Start Time Stop Time Status Last Admin Dose Admin Furosemide (Lasix) 40 mg 1X ONCE 11/11/16 15:45 11/11/16 15:46 DC 11/11/16 15:46 40 MG Allergies Allergies Allergies Coded Allergies Type Severity Reaction Last Updated Verified lisinopril Allergy Severe Anaphylaxis 09/30/16 Yes Physical Exam Physical Exam Constitutional: Well developed, well nourished, no acute distress, non-toxic appearance. [] HENT: Normocephalic, atraumatic, bilateral external ears normal, oropharynx moist, no oral exudates, nose normal. [] Eyes: PERRLA, EOMI, conjunctiva normal, no discharge. [] Neck: Normal range of motion, no tenderness, supple, no stridor. [] Cardiovascular:Heart rate regular rhythm, no murmur [] Lungs & Thorax: Bilateral breath sounds decreased bilaterally, no wheezing appreciated Abdomen: Bowel sounds normal, soft, no tenderness, no masses, no pulsatile masses. [] Skin: Warm, dry, no erythema, no rash. [] Back: No tenderness, no CVA tenderness. [] Extremities: No tenderness, no cyanosis, no clubbing, ROM intact, 2+ pitting bilateral lower show many edema Neurologic: Alert and oriented X 3, normal motor function, normal sensory function, no focal deficits noted. [] Psychologic: Affect normal, judgement normal, mood normal. [] Current Patient Data Vital Signs Vital Signs Date Time Temp Pulse Resp B/P (MAP) Pulse Ox O2 Delivery O2 Flow Rate FiO2 11/11/16 15:46 69 20 137/66 (89) 92 Nasal Cannula 2.0 11/11/16 13:32 98.4 98.4 Lab Values Laboratory Tests Test 11/11/16 13:15 White Blood Count 4.2 x10^3/uL (4.0-11.0) Red Blood Count 3.24 x10^6/uL (4.30-5.70) L Hemoglobin 8.9 g/dL (13.0-17.5) L Hematocrit 27.2 % (39.0-53.0) L Mean Corpuscular Volume 84 fL (79-100) Mean Corpuscular Hemoglobin 27 pg (25-35) Mean Corpuscular Hemoglobin Concent 33 g/dL (31-37) Red Cell Distribution Width 16.1 % (11.5-14.5) H Platelet Count 241 x10^3/uL (140-400) Neutrophils (%) (Auto) 58 % (31-73) Lymphocytes (%) (Auto) 25 % (24-48) Monocytes (%) (Auto) 12 % (0-9) H Eosinophils (%) (Auto) 4 % (0-3) H Basophils (%) (Auto) 1 % (0-3) Neutrophils # (Auto) 2.5 x10^3uL (1.8-7.7) Lymphocytes # (Auto) 1.1 x10^3/uL (1.0-4.8) Monocytes # (Auto) 0.5 x10^3/uL (0.0-1.1) Eosinophils # (Auto) 0.2 x10^3/uL (0.0-0.7) Basophils # (Auto) 0.0 x10^3/uL (0.0-0.2) Sodium Level 140 mmol/L (136-145) Potassium Level 4.2 mmol/L (3.5-5.1) Chloride Level 103 mmol/L (98-107) Carbon Dioxide Level 35 mmol/L (21-32) H Anion Gap 2 (6-14) L Blood Urea Nitrogen 25 mg/dL (8-26) Creatinine 1.4 mg/dL (0.7-1.3) H Estimated GFR (Cockcroft-Gault) 59.9 Glucose Level 116 mg/dL (70-99) H Calcium Level 8.7 mg/dL (8.5-10.1) Total Bilirubin 0.2 mg/dL (0.2-1.0) Direct Bilirubin < 0.1 mg/dL (0.0-0.2) Aspartate Amino Transferase (AST) 30 U/L (15-37) Alanine Aminotransferase (ALT) 26 U/L (16-63) Alkaline Phosphatase 66 U/L (46-116) Creatine Kinase 75 U/L (39-308) Creatine Kinase MB (Mass) 0.8 ng/mL (0.0-3.6) Creatine Kinase MB Relative Index 1.1 % (0-4) Troponin I Quantitative 0.023 ng/mL (0.000-0.055) RO-Ckf-U-Type Natriuretic Peptide 6164 pg/mL (0-124) H Total Protein 6.2 g/dL (6.4-8.2) L Albumin 2.9 g/dL (3.4-5.0) L Laboratory Tests 11/11/16 13:15 Laboratory Tests 11/11/16 13:15 EKG EKG EKG shows sinus rhythm rate of 73 bpm, no ST elevations appreciated, T-wave inversions noted in leads V1 and V2, normal axis, QTC 487 also use, as interpreted by me. Radiology/Procedures Radiology/Procedures [facility] [address] [place] [address] IMAGING REPORT Signed PATIENT: BRONSON TAI ACCOUNT: [id number] : 1940 LOCATION: ER AGE: 76 SEX: M EXAM STATUS: REG ER ORD. PHYSICIAN: GENEVA BOSS MD REASON: soa PROCEDURE: PORTABLE CHEST 1V Indication shortness of air. Flulike symptoms. A single view of the chest was obtained and is compared to an examination 2 days previously. Right pleural effusion and associated volume loss at the right lung base persists and appears similar. Some volume loss at the left lung base is also seen. Some of this probably reflects pleural fluid and atelectasis. Underlying pneumonia at either lung base is not entirely excluded. There is no gross congestive heart failure. A significant change compared to a study 2 days previously is not seen. Mild cardiomegaly is unchanged IMPRESSION: No significant change relative to the study 2 days earlier DICTATED and SIGNED BY: KIAH ADAMS MD DATE: 11/11/16 1449 CC: GENEVA BOSS MD; ELO OLIVER APRN ~ Impressions: Dyspnea Congestive heart failure Diabetes type 2 Coronary artery disease Course & Med Decision Making Course & Med Decision Making Pertinent Labs and Imaging studies reviewed. (See chart for details) Patient's BNP is elevated his chest x-ray shows bilateral consolidations similar to days ago but slightly worse. He was given 40 IV Lasix and is being admitted with azithromycin. I'm not quite sure he is able take care of himself at home as his 's unable to come visit she's sick also. He appears he hasn' t had a bath and doesn't appear his been well taken care of at home. Will admit to the hospitalist for possible [place] [facility] placement if needed. Interim orders written. Dragon Disclaimer Dragon Disclaimer This electronic medical record was generated, in whole or in part, using a voice recognition dictation system. Departure Departure Impression: Primary Impression: Dyspnea Disposition: ADMITTED INPATIENT Admitting Physician: Sana Puentes Condition: STABLE Referrals: ELO OLIVER APRN (PCP) Problem Qualifiers Primary Impression: Dyspnea Dyspnea type: unspecified Qualified Codes: R06.00 - Dyspnea, unspecified GENEVA BOSS MD Nov 11, 2016 13:41
--- NOTE | 2016-11-11 13:56 | EKG ---
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
[2016-11-11 14:38] LABS: BASO % 1 % (0-3); EOS % 4 % (0-3); HEMATOCRIT 27.2 % (39.0-53.0); HEMOGLOBIN 8.9 g/dL (13.0-17.5); LYMPH # 1.1 x10^3/uL (1.0-4.8); LYMPH % 25 % (24-48); MEAN CORPUSCULAR HEMOGLOBIN 27 pg (25-35); MEAN CORPUSCULAR HGB CONC 33 g/dL (31-37); MEAN CORPUSCULAR VOLUME 84 fL (79-100); MONO % 12 % (0-9); NEUT % 58 % (31-73); PLATELET COUNT 241 x10^3/uL (140-400); RED BLOOD COUNT 3.24 x10^6/uL (4.30-5.70); RED CELL DISTRIBUTION WIDTH 16.1 % (11.5-14.5); WHITE BLOOD COUNT 4.2 x10^3/uL (4.0-11.0)
[2016-11-11 14:46] LABS: ANION GAP 2 (6-14); BLOOD UREA NITROGEN 25 mg/dL (8-26); CALCIUM 8.7 mg/dL (8.5-10.1); CARBON DIOXIDE 35 mmol/L (21-32); CHLORIDE 103 mmol/L (98-107); CREATININE 1.4 mg/dL (0.7-1.3); GFR 59.9; GLUCOSE 116 mg/dL (70-99); POTASSIUM 4.2 mmol/L (3.5-5.1); SODIUM 140 mmol/L (136-145)
--- NOTE | 2016-11-11 14:48 | RAD ---
Indication shortness of air. Flulike symptoms. A single view of the chest was obtained and is compared to an examination 2 days previously. Right pleural effusion and associated volume loss at the right lung base persists and appears similar. Some volume loss at the left lung base is also seen. Some of this probably reflects pleural fluid and atelectasis. Underlying pneumonia at either lung base is not entirely excluded. There is no gross congestive heart failure. A significant change compared to a study 2 days previously is not seen. Mild cardiomegaly is unchanged IMPRESSION: No significant change relative to the study 2 days earlier
[2016-11-11 14:53] LABS: ALBUMIN 2.9 g/dL (3.4-5.0); ALK PHOS 66 U/L (46-116); ALT (SGPT) 26 U/L (16-63); AST (SGOT) 30 U/L (15-37); DIRECT BILIRUBIN < 0.1 mg/dL (0.0-0.2); TOTAL BILIRUBIN 0.2 mg/dL (0.2-1.0); TOTAL PROTEIN 6.2 g/dL (6.4-8.2)
[2016-11-11 15:02] LABS: CKMB MASS 0.8 ng/mL (0.0-3.6)
[2016-11-11] MEDS ORDERED: FUROSEMIDE 40 MG/4 ML VIAL. IVP ONE (15:45)
[2016-11-11] MEDS ORDERED: AZITHRMYCN 500MG IVPB FOR OMNI 250 ML IV ONE (16:30)
[2016-11-11] MEDS ORDERED: ONDANSETRON PF 4 MG/2 ML VIAL. IV PRN (16:45)
--- NOTE | 2016-11-11 16:54 | PDOC1 ---
History and Physical Date of Admission Date of Admission DATE: 11/11/16 TIME: 16:51 Identification/Chief Complaint Chief Complaint fall at home, weakness, dyspnea Problems: Source Source: Chart review, Patient History of Present Illness History of Present Illness Mr. Lloyd, is a 76 year old -[place] male. DC here 2 days ago for similar complaints, admit from ER with shortness breath. He has a history of CHF, COPD, diabetes, PE (DVT filter) hospice had been mentioned before pt reports more dyspnea and LE edema has not been able to sleep well, and cough is worse Apparently pt was on hospice prior to admission, but was DC on home health Past Medical History Cardiovascular: CAD, HTN, Hyperlipidemia, Other Pulmonary: COPD, Pulmonary embolus, Other GI: Other Heme/Onc: Anemia NOS, Other Hepatobiliary: No pertinent hx Psych: No pertinent hx Musculoskeletal: Osteoarthritis Rheumatologic: No pertinent hx Infectious disease: Other Renal/: Chronic renal insuff Endocrine: Diabetes Dermatology: No pertinent hx Past Surgical History Past Surgical History: Other Family History Family History: No Significant, Hypertension Social History Smoke: No ALCOHOL: none Drugs: None Current Problem List Problem List Problems Medical Problems: (1) Dyspnea Status: Acute Problems: Current Medications Current Medications Current Medications Furosemide (Lasix) 40 mg 1X ONCE IVP Last administered on 11/11/16 15:46; Start 11/11/16 at 15:45; Stop 11/11/16 at 15:46; Status DC Azithromycin 250 ml @ 250 mls/hr 1X ONCE IV Last administered on 11/11/16 16 :31; Start 11/11/16 at 16:30; Stop 11/11/16 at 17:29 Ondansetron HCl (Zofran) 4 mg PRN Q8HRS PRN IV NAUSEA/VOMITING; Start 11/11/16 at 16:45; Stop 11/12/16 at 16:44 Active Scripts Active Norvasc (Amlodipine Besylate) 10 Mg Tablet 10 Mg PO DAILY 30 Days Levemir (Insulin Detemir) 100 Unit/1 Ml Vial 10 Unit SQ QHS 30 Days Lasix (Furosemide) 40 Mg Tablet 1 Tab PO DAILY Plavix (Clopidogrel Bisulfate) 75 Mg Tablet 1 Tab PO DAILY Reported Advair 100-50 Diskus (Fluticasone/Salmeterol) 1 Each Disk.w.dev 1 Puff IH BID Symbicort 160-4.5 Mcg Inhaler (Budesonide/Formoterol Fumarate) 10.2 Gm Hfa.aer.ad 2 Puff IH BID Isosorbide Mononitrate Er (Isosorbide Mononitrate) 120 Mg Tab.er.24h 120 Mg PO DAILY Diltiazem 24HR Cd (Diltiazem Hcl) 240 Mg Cap.er.24h 240 Mg PO DAILY NITROGLYCERIN SubLingual (Nitroglycerin) 0.4 Mg Tab.subl 0.4 Mg SL PRN Q5MIN PRN Atorvastatin Calcium 40 Mg Tablet 40 Mg PO HS Allergies Allergies: Coded Allergies: lisinopril (Verified Allergy, Severe, Anaphylaxis, 09/30/16) Emergent Intubation 07/12/16. ROS General: No: Chills, Night Sweats, Fatigue, Malaise, Appetite, Other PSYCHOLOGICAL ROS: No: Anxiety, Behavioral Disorder, Concentration difficultie , Decreased libido, Depression, Disorientation, Hallucinations, Hostility, Irritablity, Memory difficulties, Mood Swings, Obsessive thoughts, Physical abuse, Sexual abuse, Sleep disturbances, Suicidal ideation, Other Eyes: No Blurry vision, No Decreased vision, No Double vision, No Dry eyes, No Excessive tearing, No Eye Pain, No Itchy Eyes, No Loss of vision, No Photophobia , No Scotomata, No Uses contacts, No Uses glasses, No Other HEENT: No: Heacaches, Visual Changes, Hearing change, Nasal congestion, Nasal discharge, Oral lesions, Sinus pain, Sore Throat, Epistaxis, Sneezing, Snoring, Tinnitus, Vertigo, Vocal changes, Other Respiratory: No: Cough, Hemoptysis, Orthopnea, Pleuritic Pain, Shortness of breath, SOB with excertion, Sputum Changes, Stridor, Tachypnea, Wheezing, Other Cardiovascular: No Chest Pain, No Palpitations, No Orthopnea, No Paroxysmal Noc. Dyspnea, No Edema, No Lt Headedness, No Other Gastrointestinal: No Nausea, No Vomiting, No Abdominal Pain, No Diarrhea, No Constipation, No Melena, No Hematochezia, No Other Genitourinary: No Dysuria, No Frequency, No Incontinence, No Hematuria, No Retention, No Discharge, No Urgency, No Pain, No Flank Pain, No Other, No , No , No , No , No , No , No Musculoskeletal: No Gait Disturbance, No Joint Pain, No Joint Stiffness, No Joint Swelling, No Muscle Pain, No Muscular Weakness, No Pain In:, No Swelling In:, No Other Neurological: No Behavorial Changes, No Bowel/Bladder ControlChng, No Confusion , No Dizziness, No Gait Disturbance, No Headaches, No Impaired Coord/balance, No Memory Loss, No Numbness/Tingling, No Seizures, No Speech Problems, No Tremors, No Visual Changes, No Weakness, No Other Skin: No Dry Skin, No Eczema, No Hair Changes, No Lumps, No Mole Changes, No Mottling, No Nail Changes, No Pruritus, No Rash, No Skin Lesion Changes, No Other, No Acne Physical Exam General: Alert, Oriented X3, Cooperative, No acute distress HEENT: Atraumatic, PERRLA, EOMI Lungs: Clear to auscultation, Normal air movement Heart: other Abdomen: Normal bowel sounds, Soft (some tender) Rectal Exam: not examined Extremities: Other (+ LE edema) Skin: No rashes Neuro: Normal speech, Sensation intact Psych/Mental Status: Mental status NL, Mood NL Vitals Vitals Vital Signs Date Time Temp Pulse Resp B/P (MAP) Pulse Ox O2 Delivery O2 Flow Rate FiO2 11/11/16 15:46 69 20 137/66 (89) 92 Nasal Cannula 2.0 11/11/16 13:32 98.4 98.4 Labs Labs Laboratory Tests Test 11/11/16 13:15 White Blood Count 4.2 x10^3/uL (4.0-11.0) Red Blood Count 3.24 x10^6/uL (4.30-5.70) Hemoglobin 8.9 g/dL (13.0-17.5) Hematocrit 27.2 % (39.0-53.0) Mean Corpuscular Volume 84 fL (79-100) Mean Corpuscular Hemoglobin 27 pg (25-35) Mean Corpuscular Hemoglobin Concent 33 g/dL (31-37) Red Cell Distribution Width 16.1 % (11.5-14.5) Platelet Count 241 x10^3/uL (140-400) Neutrophils (%) (Auto) 58 % (31-73) Lymphocytes (%) (Auto) 25 % (24-48) Monocytes (%) (Auto) 12 % (0-9) Eosinophils (%) (Auto) 4 % (0-3) Basophils (%) (Auto) 1 % (0-3) Neutrophils # (Auto) 2.5 x10^3uL (1.8-7.7) Lymphocytes # (Auto) 1.1 x10^3/uL (1.0-4.8) Monocytes # (Auto) 0.5 x10^3/uL (0.0-1.1) Eosinophils # (Auto) 0.2 x10^3/uL (0.0-0.7) Basophils # (Auto) 0.0 x10^3/uL (0.0-0.2) Sodium Level 140 mmol/L (136-145) Potassium Level 4.2 mmol/L (3.5-5.1) Chloride Level 103 mmol/L (98-107) Carbon Dioxide Level 35 mmol/L (21-32) Anion Gap 2 (6-14) Blood Urea Nitrogen 25 mg/dL (8-26) Creatinine 1.4 mg/dL (0.7-1.3) Estimated GFR (Cockcroft-Gault) 59.9 Glucose Level 116 mg/dL (70-99) Calcium Level 8.7 mg/dL (8.5-10.1) Total Bilirubin 0.2 mg/dL (0.2-1.0) Direct Bilirubin < 0.1 mg/dL (0.0-0.2) Aspartate Amino Transf (AST/SGOT) 30 U/L (15-37) Alanine Aminotransferase (ALT/SGPT) 26 U/L (16-63) Alkaline Phosphatase 66 U/L (46-116) Creatine Kinase 75 U/L (39-308) Creatine Kinase MB (Mass) 0.8 ng/mL (0.0-3.6) Creatine Kinase MB Relative Index 1.1 % (0-4) Troponin I Quantitative 0.023 ng/mL (0.000-0.055) VH-Zoe-T-Type Natriuretic Peptide 6164 pg/mL (0-124) Total Protein 6.2 g/dL (6.4-8.2) Albumin 2.9 g/dL (3.4-5.0) Laboratory Tests Test 11/11/16 13:15 White Blood Count 4.2 x10^3/uL (4.0-11.0) Red Blood Count 3.24 x10^6/uL (4.30-5.70) Hemoglobin 8.9 g/dL (13.0-17.5) Hematocrit 27.2 % (39.0-53.0) Mean Corpuscular Volume 84 fL (79-100) Mean Corpuscular Hemoglobin 27 pg (25-35) Mean Corpuscular Hemoglobin Concent 33 g/dL (31-37) Red Cell Distribution Width 16.1 % (11.5-14.5) Platelet Count 241 x10^3/uL (140-400) Neutrophils (%) (Auto) 58 % (31-73) Lymphocytes (%) (Auto) 25 % (24-48) Monocytes (%) (Auto) 12 % (0-9) Eosinophils (%) (Auto) 4 % (0-3) Basophils (%) (Auto) 1 % (0-3) Neutrophils # (Auto) 2.5 x10^3uL (1.8-7.7) Lymphocytes # (Auto) 1.1 x10^3/uL (1.0-4.8) Monocytes # (Auto) 0.5 x10^3/uL (0.0-1.1) Eosinophils # (Auto) 0.2 x10^3/uL (0.0-0.7) Basophils # (Auto) 0.0 x10^3/uL (0.0-0.2) Sodium Level 140 mmol/L (136-145) Potassium Level 4.2 mmol/L (3.5-5.1) Chloride Level 103 mmol/L (98-107) Carbon Dioxide Level 35 mmol/L (21-32) Anion Gap 2 (6-14) Blood Urea Nitrogen 25 mg/dL (8-26) Creatinine 1.4 mg/dL (0.7-1.3) Estimated GFR (Cockcroft-Gault) 59.9 Glucose Level 116 mg/dL (70-99) Calcium Level 8.7 mg/dL (8.5-10.1) Total Bilirubin 0.2 mg/dL (0.2-1.0) Direct Bilirubin < 0.1 mg/dL (0.0-0.2) Aspartate Amino Transf (AST/SGOT) 30 U/L (15-37) Alanine Aminotransferase (ALT/SGPT) 26 U/L (16-63) Alkaline Phosphatase 66 U/L (46-116) Creatine Kinase 75 U/L (39-308) Creatine Kinase MB (Mass) 0.8 ng/mL (0.0-3.6) Creatine Kinase MB Relative Index 1.1 % (0-4) Troponin I Quantitative 0.023 ng/mL (0.000-0.055) AW-Daw-I-Type Natriuretic Peptide 6164 pg/mL (0-124) Total Protein 6.2 g/dL (6.4-8.2) Albumin 2.9 g/dL (3.4-5.0) VTE Prophylaxis Ordered VTE Prophylaxis Devices: Contraindicated VTE Pharmacological Prophylaxi: Yes Assessment/Plan Assessment/Plan weakness and debiility 1. Acute on chronic diastolic CHF 2. Accelerated HTN: labile 3. Acute on chronic respiratory failure with COPD/pulmonary HTN 4. CKD 5. Hx of PE/DVT: IVC filter in place KEVIN SHARMA MD Nov 11, 2016 16:54
[2016-11-11] MEDS ORDERED: NITROGLYCERIN SUBLINGUAL 0.4 MG BOTTLE OF 25. SL PRN (17:00)
[2016-11-11 18:12] VITALS: BP 130/78
[2016-11-11 18:50] VITALS: BP 130/78
[2016-11-11] MEDS: BUDESONIDE 0.5 MG/2 ML NEBU. NEB SCH (19:22)
[2016-11-11] MEDS ORDERED: ALBUTEROL SULFATE 2.5 MG/3 ML NEBU. NEB SCH (20:00)
[2016-11-11] MEDS ORDERED: NON FORMULARY ITEM (Budesonide/Formoterol Fumarate (Symbicort 160-4.5 Mcg Inhaler) 2 PUFF) IH SCH (21:00)
[2016-11-11] MEDS ORDERED: NON FORMULARY ITEM (Fluticasone/Salmeterol (Advair 100-50 Diskus) 1 PUFF) IH SCH (21:00)
[2016-11-11] MEDS: ATORVASTATIN CALCIUM 40 MG TABLET. PO SCH (21:11)
[2016-11-11] MEDS ORDERED: ALBUTEROL SULFATE 2.5 MG/3 ML NEBU. NEB PRN (21:15)
[2016-11-11] MEDS: INSULIN DETEMIR 300 UNITS/3 ML INSULN.PEN. SQ SCH (21:16)
[2016-11-11] MEDS: IPRATRPIUM/ALBUTEROL 0.5/2.5MG 3 ML NEBU. NEB SCH (21:30)
--- NOTE | 2016-11-11 22:52 | ACF ---
Admission Forms Criteria HEART FAILURE: COMMON COMPLICATIONS Clinical Indications for Inpatient Care (Place 'X' for any and all applicable criteria): Ongoing inpatient care may be indicated for heart failure with 1 or more of the following (1)(2)(3)(4)(5)(6)(7)(8): [ ]I. New-onset heart failure [ ]II. Acute cardiac ischemia causing or associated with failure [ ]III. Ongoing need for care for primary condition requiring frequent therapy adjustments because of changes in cardiac function (eg, drug dosage changes for drugs that are renally metabolized) [X]IV. Complications of heart failure, including 1 or more of the following: [ ]a) Hemodynamic instability [ ]b) Pericardial effusion [ ]c) Symptomatic pleural effusion [ ]d) Hypoxemia [ ]e) Tachypnea [X]f) Dyspnea [ ]g) Syncope [ ]h) Altered mental status [ ]i) Acute renal insufficiency that is severe (reduction of more than 50% in estimated glomerular filtration rate from baseline) or progressive reduction of more than 25% in estimated glomerular filtration rate from baseline, with creatinine continuing to rise) [ ]j) Debilitating anasarca (eg tissue breakdown with infection, inability to void due to edema) (E) [ ]k) Clinically significant metabolic abnormalities due to heart failure (eg, new-onset metabolic acidosis) Extended stay may be needed until ALL of the following are present (1)(3)(18)(41 )(55) [ ]a) Hemodynamic stability [ ]b) Stable and effective diuretic regimen established (or patient on stable dialysis regimen if in chronic renal failure) [ ]c) Volume status acceptable on oral medication [ ]d) Breathing comfortably at rest [ ]e) Saturation of arterial oxygen greater than 90% or at acceptable baseline [ ]f) Pulmonary edema absent or improved [ ]g) Peripheral or sacral edema absent or improved [ ]h) Renal function stable and manageable at a lower level of care [ ]i) Complications (eg, pleural effusion) resolved or manageable at a lower level of care [ ]g) Patient or caregiver has received written discharge instructions or educational material addressing activity level, diet, discharge medications, follow-up appointment, weight monitoring, and what to do if symptoms worsen.(25)(26) The original [facility] [employer] content created by [facility] [employer] has been revised. The portions of the content which have been revised are identified through the use of italic text, and [facility] has neither reviewed nor approved the modified material.All other unmodified content is copyright [facility]. Please see references footnoted in the original [facility] edition 2015 Admission Criteria Met?: Yes PRASHANT DANIEL Nov 11, 2016 22:52
[2016-11-11 23:00] VITALS: BP 135/67
[2016-11-12 03:00] VITALS: BP 132/87
[2016-11-12 05:23] LABS: BASO % 1 % (0-3); EOS % 4 % (0-3); HEMATOCRIT 27.6 % (39.0-53.0); HEMOGLOBIN 8.7 g/dL (13.0-17.5); LYMPH # 1.4 x10^3/uL (1.0-4.8); LYMPH % 27 % (24-48); MEAN CORPUSCULAR HEMOGLOBIN 27 pg (25-35); MEAN CORPUSCULAR HGB CONC 31 g/dL (31-37); MEAN CORPUSCULAR VOLUME 87 fL (79-100); MONO % 12 % (0-9); NEUT % 56 % (31-73); PLATELET COUNT 235 x10^3/uL (140-400); RED BLOOD COUNT 3.19 x10^6/uL (4.30-5.70); RED CELL DISTRIBUTION WIDTH 16.7 % (11.5-14.5); WHITE BLOOD COUNT 5.3 x10^3/uL (4.0-11.0)
[2016-11-12 05:43] LABS: CALCIUM 8.2 mg/dL (8.5-10.1); CREATININE 1.6 mg/dL (0.7-1.3); GFR 51.4; POTASSIUM 4.2 mmol/L (3.5-5.1)
[2016-11-12 07:00] VITALS: BP 143/74
[2016-11-12] MEDS: BUDESONIDE 0.5 MG/2 ML NEBU. NEB SCH ×2 (07:59→19:39)
[2016-11-12] MEDS: IPRATRPIUM/ALBUTEROL 0.5/2.5MG 3 ML NEBU. NEB SCH ×4 (07:59→19:39)
[2016-11-12] MEDS ORDERED: AZITHROMYCIN 250 MG TABLET. PO SCH (09:00)
[2016-11-12] MEDS: FUROSEMIDE 40 MG TABLET. PO SCH (09:09)
[2016-11-12] MEDS: CLOPIDOGREL BISULFATE 75 MG TABLET PO SCH (09:11)
[2016-11-12] MEDS: amLODIPine BESYLATE 10 MG TABLET PO SCH (09:11)
[2016-11-12] MEDS: ISOSORBIDE MONONITRATE ER 30 MG TAB.ER.24H PO SCH (09:13)
--- NOTE | 2016-11-12 10:08 | PDOC ---
PROGRESS NOTES Chief Complaint Chief Complaint 1. Acute on chronic diastolic CHF, seems to be NYHA 4 2. Accelerated HTN: labile 3. Acute on chronic respiratory failure with COPD/pulmonary HTN 4. CKD 3 5. 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 weakness and debility 7. leg wound, recent foot surgery, poorly mobile History of Present Illness History of Present Illness declined hospice last admit PT and OT discussed cont current palliative care services unavailable this week Vitals Vitals Vital Signs Date Time Temp Pulse Resp B/P (MAP) Pulse Ox O2 Delivery O2 Flow Rate FiO2 11/12/16 09:29 Nasal Cannula 2.0 11/12/16 09:13 81 132/87 11/12/16 08:05 98 11/12/16 07:00 97.6 18 97.6 Physical Exam General: Alert, Oriented X3, Cooperative, No acute distress Heart: Regular rate Lungs: Clear, Other Abdomen: Normal bowel sounds, Soft (some tender) Extremities: Other (+ LE edema) Skin: No rashes Labs LABS Laboratory Tests Test 11/11/16 13:15 11/11/16 20:56 11/11/16 22:00 11/12/16 04:45 White Blood Count 4.2 x10^3/uL (4.0-11.0) 5.3 x10^3/uL (4.0-11.0) Red Blood Count 3.24 x10^6/uL (4.30-5.70) 3.19 x10^6/uL (4.30-5.70) Hemoglobin 8.9 g/dL (13.0-17.5) 8.7 g/dL (13.0-17.5) Hematocrit 27.2 % (39.0-53.0) 27.6 % (39.0-53.0) Mean Corpuscular Volume 84 fL (79-100) 87 fL (79-100) Mean Corpuscular Hemoglobin 27 pg (25-35) 27 pg (25-35) Mean Corpuscular Hemoglobin Concent 33 g/dL (31-37) 31 g/dL (31-37) Red Cell Distribution Width 16.1 % (11.5-14.5) 16.7 % (11.5-14.5) Platelet Count 241 x10^3/uL (140-400) 235 x10^3/uL (140-400) Neutrophils (%) (Auto) 58 % (31-73) 56 % (31-73) Lymphocytes (%) (Auto) 25 % (24-48) 27 % (24-48) Monocytes (%) (Auto) 12 % (0-9) 12 % (0-9) Eosinophils (%) (Auto) 4 % (0-3) 4 % (0-3) Basophils (%) (Auto) 1 % (0-3) 1 % (0-3) Neutrophils # (Auto) 2.5 x10^3uL (1.8-7.7) 3.0 x10^3uL (1.8-7.7) Lymphocytes # (Auto) 1.1 x10^3/uL (1.0-4.8) 1.4 x10^3/uL (1.0-4.8) Monocytes # (Auto) 0.5 x10^3/uL (0.0-1.1) 0.6 x10^3/uL (0.0-1.1) Eosinophils # (Auto) 0.2 x10^3/uL (0.0-0.7) 0.2 x10^3/uL (0.0-0.7) Basophils # (Auto) 0.0 x10^3/uL (0.0-0.2) 0.0 x10^3/uL (0.0-0.2) Sodium Level 140 mmol/L (136-145) 144 mmol/L (136-145) Potassium Level 4.2 mmol/L (3.5-5.1) 4.2 mmol/L (3.5-5.1) Chloride Level 103 mmol/L (98-107) 104 mmol/L (98-107) Carbon Dioxide Level 35 mmol/L (21-32) 37 mmol/L (21-32) Anion Gap 2 (6-14) 3 (6-14) Blood Urea Nitrogen 25 mg/dL (8-26) 28 mg/dL (8-26) Creatinine 1.4 mg/dL (0.7-1.3) 1.6 mg/dL (0.7-1.3) Estimated GFR (Cockcroft-Gault) 59.9 51.4 Glucose Level 116 mg/dL (70-99) 93 mg/dL (70-99) Calcium Level 8.7 mg/dL (8.5-10.1) 8.2 mg/dL (8.5-10.1) Total Bilirubin 0.2 mg/dL (0.2-1.0) Direct Bilirubin < 0.1 mg/dL (0.0-0.2) Aspartate Amino Transf (AST/SGOT) 30 U/L (15-37) Alanine Aminotransferase (ALT/SGPT) 26 U/L (16-63) Alkaline Phosphatase 66 U/L (46-116) Creatine Kinase 75 U/L (39-308) Creatine Kinase MB (Mass) 0.8 ng/mL (0.0-3.6) Creatine Kinase MB Relative Index 1.1 % (0-4) Troponin I Quantitative 0.023 ng/mL (0.000-0.055) < 0.017 ng/mL (0.000-0.055) 0.022 ng/mL (0.000-0.055) LA-Aeb-J-Type Natriuretic Peptide 6164 pg/mL (0-124) Total Protein 6.2 g/dL (6.4-8.2) Albumin 2.9 g/dL (3.4-5.0) Glucose (Fingerstick) 136 mg/dL (70-99) Test 11/12/16 07:23 Glucose (Fingerstick) 67 mg/dL (70-99) Review of Systems Review of Systems weakness tired, no n.vd ate OK Assessment and Plan Assessmemt and Plan Problems Medical Problems: (1) Dyspnea Status: Acute Problems: Comment Review of Relevant I have reviewed the following items valerie (where applicable) has been applied. Labs Laboratory Tests Test 11/11/16 13:15 11/11/16 20:56 11/11/16 22:00 11/12/16 04:45 White Blood Count 4.2 x10^3/uL (4.0-11.0) 5.3 x10^3/uL (4.0-11.0) Red Blood Count 3.24 x10^6/uL (4.30-5.70) 3.19 x10^6/uL (4.30-5.70) Hemoglobin 8.9 g/dL (13.0-17.5) 8.7 g/dL (13.0-17.5) Hematocrit 27.2 % (39.0-53.0) 27.6 % (39.0-53.0) Mean Corpuscular Volume 84 fL (79-100) 87 fL (79-100) Mean Corpuscular Hemoglobin 27 pg (25-35) 27 pg (25-35) Mean Corpuscular Hemoglobin Concent 33 g/dL (31-37) 31 g/dL (31-37) Red Cell Distribution Width 16.1 % (11.5-14.5) 16.7 % (11.5-14.5) Platelet Count 241 x10^3/uL (140-400) 235 x10^3/uL (140-400) Neutrophils (%) (Auto) 58 % (31-73) 56 % (31-73) Lymphocytes (%) (Auto) 25 % (24-48) 27 % (24-48) Monocytes (%) (Auto) 12 % (0-9) 12 % (0-9) Eosinophils (%) (Auto) 4 % (0-3) 4 % (0-3) Basophils (%) (Auto) 1 % (0-3) 1 % (0-3) Neutrophils # (Auto) 2.5 x10^3uL (1.8-7.7) 3.0 x10^3uL (1.8-7.7) Lymphocytes # (Auto) 1.1 x10^3/uL (1.0-4.8) 1.4 x10^3/uL (1.0-4.8) Monocytes # (Auto) 0.5 x10^3/uL (0.0-1.1) 0.6 x10^3/uL (0.0-1.1) Eosinophils # (Auto) 0.2 x10^3/uL (0.0-0.7) 0.2 x10^3/uL (0.0-0.7) Basophils # (Auto) 0.0 x10^3/uL (0.0-0.2) 0.0 x10^3/uL (0.0-0.2) Sodium Level 140 mmol/L (136-145) 144 mmol/L (136-145) Potassium Level 4.2 mmol/L (3.5-5.1) 4.2 mmol/L (3.5-5.1) Chloride Level 103 mmol/L (98-107) 104 mmol/L (98-107) Carbon Dioxide Level 35 mmol/L (21-32) 37 mmol/L (21-32) Anion Gap 2 (6-14) 3 (6-14) Blood Urea Nitrogen 25 mg/dL (8-26) 28 mg/dL (8-26) Creatinine 1.4 mg/dL (0.7-1.3) 1.6 mg/dL (0.7-1.3) Estimated GFR (Cockcroft-Gault) 59.9 51.4 Glucose Level 116 mg/dL (70-99) 93 mg/dL (70-99) Calcium Level 8.7 mg/dL (8.5-10.1) 8.2 mg/dL (8.5-10.1) Total Bilirubin 0.2 mg/dL (0.2-1.0) Direct Bilirubin < 0.1 mg/dL (0.0-0.2) Aspartate Amino Transf (AST/SGOT) 30 U/L (15-37) Alanine Aminotransferase (ALT/SGPT) 26 U/L (16-63) Alkaline Phosphatase 66 U/L (46-116) Creatine Kinase 75 U/L (39-308) Creatine Kinase MB (Mass) 0.8 ng/mL (0.0-3.6) Creatine Kinase MB Relative Index 1.1 % (0-4) Troponin I Quantitative 0.023 ng/mL (0.000-0.055) < 0.017 ng/mL (0.000-0.055) 0.022 ng/mL (0.000-0.055) CD-Luc-Z-Type Natriuretic Peptide 6164 pg/mL (0-124) Total Protein 6.2 g/dL (6.4-8.2) Albumin 2.9 g/dL (3.4-5.0) Glucose (Fingerstick) 136 mg/dL (70-99) Test 11/12/16 07:23 Glucose (Fingerstick) 67 mg/dL (70-99) Laboratory Tests Test 11/11/16 13:15 11/11/16 20:56 11/11/16 22:00 11/12/16 04:45 White Blood Count 4.2 x10^3/uL (4.0-11.0) 5.3 x10^3/uL (4.0-11.0) Red Blood Count 3.24 x10^6/uL (4.30-5.70) 3.19 x10^6/uL (4.30-5.70) Hemoglobin 8.9 g/dL (13.0-17.5) 8.7 g/dL (13.0-17.5) Hematocrit 27.2 % (39.0-53.0) 27.6 % (39.0-53.0) Mean Corpuscular Volume 84 fL (79-100) 87 fL (79-100) Mean Corpuscular Hemoglobin 27 pg (25-35) 27 pg (25-35) Mean Corpuscular Hemoglobin Concent 33 g/dL (31-37) 31 g/dL (31-37) Red Cell Distribution Width 16.1 % (11.5-14.5) 16.7 % (11.5-14.5) Platelet Count 241 x10^3/uL (140-400) 235 x10^3/uL (140-400) Neutrophils (%) (Auto) 58 % (31-73) 56 % (31-73) Lymphocytes (%) (Auto) 25 % (24-48) 27 % (24-48) Monocytes (%) (Auto) 12 % (0-9) 12 % (0-9) Eosinophils (%) (Auto) 4 % (0-3) 4 % (0-3) Basophils (%) (Auto) 1 % (0-3) 1 % (0-3) Neutrophils # (Auto) 2.5 x10^3uL (1.8-7.7) 3.0 x10^3uL (1.8-7.7) Lymphocytes # (Auto) 1.1 x10^3/uL (1.0-4.8) 1.4 x10^3/uL (1.0-4.8) Monocytes # (Auto) 0.5 x10^3/uL (0.0-1.1) 0.6 x10^3/uL (0.0-1.1) Eosinophils # (Auto) 0.2 x10^3/uL (0.0-0.7) 0.2 x10^3/uL (0.0-0.7) Basophils # (Auto) 0.0 x10^3/uL (0.0-0.2) 0.0 x10^3/uL (0.0-0.2) Sodium Level 140 mmol/L (136-145) 144 mmol/L (136-145) Potassium Level 4.2 mmol/L (3.5-5.1) 4.2 mmol/L (3.5-5.1) Chloride Level 103 mmol/L (98-107) 104 mmol/L (98-107) Carbon Dioxide Level 35 mmol/L (21-32) 37 mmol/L (21-32) Anion Gap 2 (6-14) 3 (6-14) Blood Urea Nitrogen 25 mg/dL (8-26) 28 mg/dL (8-26) Creatinine 1.4 mg/dL (0.7-1.3) 1.6 mg/dL (0.7-1.3) Estimated GFR (Cockcroft-Gault) 59.9 51.4 Glucose Level 116 mg/dL (70-99) 93 mg/dL (70-99) Calcium Level 8.7 mg/dL (8.5-10.1) 8.2 mg/dL (8.5-10.1) Total Bilirubin 0.2 mg/dL (0.2-1.0) Direct Bilirubin < 0.1 mg/dL (0.0-0.2) Aspartate Amino Transf (AST/SGOT) 30 U/L (15-37) Alanine Aminotransferase (ALT/SGPT) 26 U/L (16-63) Alkaline Phosphatase 66 U/L (46-116) Creatine Kinase 75 U/L (39-308) Creatine Kinase MB (Mass) 0.8 ng/mL (0.0-3.6) Creatine Kinase MB Relative Index 1.1 % (0-4) Troponin I Quantitative 0.023 ng/mL (0.000-0.055) < 0.017 ng/mL (0.000-0.055) 0.022 ng/mL (0.000-0.055) BT-Blo-C-Type Natriuretic Peptide 6164 pg/mL (0-124) Total Protein 6.2 g/dL (6.4-8.2) Albumin 2.9 g/dL (3.4-5.0) Glucose (Fingerstick) 136 mg/dL (70-99) Test 11/12/16 07:23 Glucose (Fingerstick) 67 mg/dL (70-99) Medications Current Medications Furosemide (Lasix) 40 mg 1X ONCE IVP Last administered on 11/11/16 15:46; Start 11/11/16 at 15:45; Stop 11/11/16 at 15:46; Status DC Azithromycin 250 ml @ 250 mls/hr 1X ONCE IV Last administered on 11/11/16 16 :31; Start 11/11/16 at 16:30; Stop 11/11/16 at 17:29; Status DC Ondansetron HCl (Zofran) 4 mg PRN Q8HRS PRN IV NAUSEA/VOMITING; Start 11/11/16 at 16:45; Stop 11/12/16 at 16:44 Amlodipine Besylate (Norvasc) 10 mg DAILY PO Last administered on 11/12/16 09: 11; Start 11/12/16 at 09:00 Atorvastatin Calcium (Lipitor) 40 mg HS PO Last administered on 11/11/16 21:11 ; Start 11/11/16 at 21:00 Clopidogrel Bisulfate (Plavix) 75 mg DAILY PO Last administered on 11/12/16 09 :11; Start 11/12/16 at 09:00 Diltiazem HCl (Cardizem 24hr Cd) 240 mg DAILY PO Last administered on 09:10; Start 11/12/16 at 09:00 Furosemide (Lasix) 40 mg DAILY PO Last administered on 11/12/16 09:09; Start 11/12/16 at 09:00 Nitroglycerin (Nitrostat) 0.4 mg PRN Q5MIN PRN SL CHEST PAIN; Start 11/11/16 at 17:00 Non-Formulary Medication 2 puff BID IH ; Start 11/11/16 at 21:00; Status UNV Non-Formulary Medication 1 puff BID IH ; Start 11/11/16 at 21:00; Status UNV Insulin Detemir (Levemir) 10 units QHS SQ Last administered on 7/20/17at 21:16 ; Start 11/11/16 at 21:00 Isosorbide Mononitrate (Imdur) 120 mg DAILY PO Last administered on 11/12/16 09:13; Start 11/12/16 at 09:00 Budesonide (Pulmicort) 0.5 mg RTBID NEB Last administered on 11/12/16 07:59; Start 11/11/16 at 20:00 Albuterol Sulfate (Ventolin Neb Soln) 2.5 mg RTQID NEB Last administered on 19:22; Start 11/11/16 at 20:00; Stop 11/11/16 at 21:02; Status DC Albuterol/ Ipratropium (Duoneb) 3 ml RTQID NEB Last administered on 11/12/16 07:59; Start 11/11/16 at 21:30 Azithromycin (Zithromax) 250 mg DAILY PO Last administered on 11/12/16 09:10; Start 11/12/16 at 09:00 Albuterol Sulfate (Ventolin Neb Soln) 2.5 mg PRN QID PRN NEB DYSPNEA; Start at 21:15 Active Scripts Active Norvasc (Amlodipine Besylate) 10 Mg Tablet 10 Mg PO DAILY 30 Days Levemir (Insulin Detemir) 100 Unit/1 Ml Vial 10 Unit SQ QHS 30 Days Lasix (Furosemide) 40 Mg Tablet 1 Tab PO DAILY Plavix (Clopidogrel Bisulfate) 75 Mg Tablet 1 Tab PO DAILY Reported Advair 100-50 Diskus (Fluticasone/Salmeterol) 1 Each Disk.w.dev 1 Puff IH BID Symbicort 160-4.5 Mcg Inhaler (Budesonide/Formoterol Fumarate) 10.2 Gm Hfa.aer.ad 2 Puff IH BID Isosorbide Mononitrate Er (Isosorbide Mononitrate) 120 Mg Tab.er.24h 120 Mg PO DAILY Diltiazem 24HR Cd (Diltiazem Hcl) 240 Mg Cap.er.24h 240 Mg PO DAILY NITROGLYCERIN SubLingual (Nitroglycerin) 0.4 Mg Tab.subl 0.4 Mg SL PRN Q5MIN PRN Atorvastatin Calcium 40 Mg Tablet 40 Mg PO HS Vitals/I & O Vital Sign - Last 24 Hours 7/11/11/16 11/11/16 11/11/16 13:32 14:30 15:46 17:06 Temp 98.4 98.4 Pulse 67 68 69 70 Resp 20 20 20 20 B/P (MAP) 134/72 (92) 141/65 (90) 137/66 (89) 144/71 (95) Pulse Ox 92 92 92 95 O2 Delivery Nasal Cannula Nasal Cannula Nasal Cannula O2 Flow Rate 2.0 2.0 2.0 11/11/16 11/11/16 11/11/16 11/11/16 18:12 18:20 18:50 19:27 Temp 97.9 97.9 97.9 97.9 Pulse 78 78 Resp 20 B/P (MAP) 130/78 (95) 130/78 (95) Pulse Ox 95 95 96 O2 Delivery Nasal Cannula Nasal Cannula Nasal Cannula O2 Flow Rate 2.0 2.0 2.0 2.0 11/11/16 11/11/16 11/12/16 11/12/16 20:00 23:00 03:00 07:00 Temp 98.1 97.9 97.6 98.1 97.9 97.6 Pulse 79 81 42 Resp 20 18 18 B/P (MAP) 135/67 (89) 132/87 (102) 143/74 (97) Pulse Ox 90 96 97 O2 Delivery Nasal Cannula Room Air Nasal Cannula Nasal Cannula O2 Flow Rate 2.0 2.0 2.0 11/12/16 11/12/16 11/12/16 11/12/16 08:00 08:01 08:05 09:10 Pulse 81 B/P (MAP) 132/87 Pulse Ox 98 98 O2 Delivery Nasal Cannula Nasal Cannula Nasal Cannula O2 Flow Rate 2.0 2.0 2.0 11/12/16 11/12/16 11/12/16 09:11 09:13 09:29 Pulse 81 81 B/P (MAP) 132/87 132/87 O2 Delivery Nasal Cannula O2 Flow Rate 2.0 Intake and Output 11/11/16 11/11/16 11/12/16 15:00 23:00 07:00 Intake Total 100 ml Output Total 500 ml 400 ml Balance -500 ml -300 ml KEVIN SHARMA MD Nov 12, 2016 10:08
--- NOTE | 2016-11-12 10:57 | PDOC ---
Infectious Disease Note Vital Sign Vital Signs Vital Signs Date Time Temp Pulse Resp B/P (MAP) Pulse Ox O2 Delivery O2 Flow Rate FiO2 11/12/16 09:29 Nasal Cannula 2.0 11/12/16 09:13 81 132/87 11/12/16 08:05 98 11/12/16 07:00 97.6 18 97.6 Labs Lab Laboratory Tests Test 11/11/16 13:15 11/11/16 20:56 11/11/16 22:00 11/12/16 04:45 White Blood Count 4.2 x10^3/uL (4.0-11.0) 5.3 x10^3/uL (4.0-11.0) Red Blood Count 3.24 x10^6/uL (4.30-5.70) 3.19 x10^6/uL (4.30-5.70) Hemoglobin 8.9 g/dL (13.0-17.5) 8.7 g/dL (13.0-17.5) Hematocrit 27.2 % (39.0-53.0) 27.6 % (39.0-53.0) Mean Corpuscular Volume 84 fL (79-100) 87 fL (79-100) Mean Corpuscular Hemoglobin 27 pg (25-35) 27 pg (25-35) Mean Corpuscular Hemoglobin Concent 33 g/dL (31-37) 31 g/dL (31-37) Red Cell Distribution Width 16.1 % (11.5-14.5) 16.7 % (11.5-14.5) Platelet Count 241 x10^3/uL (140-400) 235 x10^3/uL (140-400) Neutrophils (%) (Auto) 58 % (31-73) 56 % (31-73) Lymphocytes (%) (Auto) 25 % (24-48) 27 % (24-48) Monocytes (%) (Auto) 12 % (0-9) 12 % (0-9) Eosinophils (%) (Auto) 4 % (0-3) 4 % (0-3) Basophils (%) (Auto) 1 % (0-3) 1 % (0-3) Neutrophils # (Auto) 2.5 x10^3uL (1.8-7.7) 3.0 x10^3uL (1.8-7.7) Lymphocytes # (Auto) 1.1 x10^3/uL (1.0-4.8) 1.4 x10^3/uL (1.0-4.8) Monocytes # (Auto) 0.5 x10^3/uL (0.0-1.1) 0.6 x10^3/uL (0.0-1.1) Eosinophils # (Auto) 0.2 x10^3/uL (0.0-0.7) 0.2 x10^3/uL (0.0-0.7) Basophils # (Auto) 0.0 x10^3/uL (0.0-0.2) 0.0 x10^3/uL (0.0-0.2) Sodium Level 140 mmol/L (136-145) 144 mmol/L (136-145) Potassium Level 4.2 mmol/L (3.5-5.1) 4.2 mmol/L (3.5-5.1) Chloride Level 103 mmol/L (98-107) 104 mmol/L (98-107) Carbon Dioxide Level 35 mmol/L (21-32) 37 mmol/L (21-32) Anion Gap 2 (6-14) 3 (6-14) Blood Urea Nitrogen 25 mg/dL (8-26) 28 mg/dL (8-26) Creatinine 1.4 mg/dL (0.7-1.3) 1.6 mg/dL (0.7-1.3) Estimated GFR (Cockcroft-Gault) 59.9 51.4 Glucose Level 116 mg/dL (70-99) 93 mg/dL (70-99) Calcium Level 8.7 mg/dL (8.5-10.1) 8.2 mg/dL (8.5-10.1) Total Bilirubin 0.2 mg/dL (0.2-1.0) Direct Bilirubin < 0.1 mg/dL (0.0-0.2) Aspartate Amino Transf (AST/SGOT) 30 U/L (15-37) Alanine Aminotransferase (ALT/SGPT) 26 U/L (16-63) Alkaline Phosphatase 66 U/L (46-116) Creatine Kinase 75 U/L (39-308) Creatine Kinase MB (Mass) 0.8 ng/mL (0.0-3.6) Creatine Kinase MB Relative Index 1.1 % (0-4) Troponin I Quantitative 0.023 ng/mL (0.000-0.055) < 0.017 ng/mL (0.000-0.055) 0.022 ng/mL (0.000-0.055) ZC-Qzx-N-Type Natriuretic Peptide 6164 pg/mL (0-124) Total Protein 6.2 g/dL (6.4-8.2) Albumin 2.9 g/dL (3.4-5.0) Glucose (Fingerstick) 136 mg/dL (70-99) Test 11/12/16 07:23 Glucose (Fingerstick) 67 mg/dL (70-99) Objective Assessment Left calcaneal wound with foul smelling discharge CHF Pleural effusion Debility COPD HTN Plan Plan of Care change azithro to zosyn supportive care off load overall prognosis poor ANA GIL MD Nov 12, 2016 10:57
[2016-11-12 11:00] VITALS: BP 163/84
[2016-11-12] MEDS: PIPERACILLIN/TAZOBACTAM 3.375 GM in IV NORMAL SALINE 50ML 50 ML IV SCH ×2 (11:36→18:25)
--- NOTE | 2016-11-12 12:48 | PDOC ---
Provider Note Provider Note [id number] dyspnea abnl cxr copd chf bronchodilator abx ics SARAH VELASQUEZ MD Nov 12, 2016 12:48
--- NOTE | 2016-11-12 12:55 | PDOC ---
CARDIO Progress Notes Date and Time Date of Service 11/12/16 Time of Evaluation 1215 Subjective Subjective: No Chest Pain, No Palpitations, Other (No significant SOA) Vitals Vitals Vital Signs Date Time Temp Pulse Resp B/P (MAP) Pulse Ox O2 Delivery O2 Flow Rate FiO2 11/12/16 11:29 98 Nasal Cannula 2.0 11/12/16 11:00 96.8 77 18 163/84 (110) 96.8 Weight Weight [ ] Input and Output Intake and Output Intake and Output 11/12/16 07:00 Intake Total 100 ml Output Total 900 ml Balance -800 ml Intake Oral 100 ml Output Urine Total 900 ml Laboratory Labs Laboratory Tests Test 11/11/16 13:15 11/11/16 20:56 11/11/16 22:00 11/12/16 04:45 White Blood Count 4.2 x10^3/uL (4.0-11.0) 5.3 x10^3/uL (4.0-11.0) Red Blood Count 3.24 x10^6/uL (4.30-5.70) 3.19 x10^6/uL (4.30-5.70) Hemoglobin 8.9 g/dL (13.0-17.5) 8.7 g/dL (13.0-17.5) Hematocrit 27.2 % (39.0-53.0) 27.6 % (39.0-53.0) Mean Corpuscular Volume 84 fL (79-100) 87 fL (79-100) Mean Corpuscular Hemoglobin 27 pg (25-35) 27 pg (25-35) Mean Corpuscular Hemoglobin Concent 33 g/dL (31-37) 31 g/dL (31-37) Red Cell Distribution Width 16.1 % (11.5-14.5) 16.7 % (11.5-14.5) Platelet Count 241 x10^3/uL (140-400) 235 x10^3/uL (140-400) Neutrophils (%) (Auto) 58 % (31-73) 56 % (31-73) Lymphocytes (%) (Auto) 25 % (24-48) 27 % (24-48) Monocytes (%) (Auto) 12 % (0-9) 12 % (0-9) Eosinophils (%) (Auto) 4 % (0-3) 4 % (0-3) Basophils (%) (Auto) 1 % (0-3) 1 % (0-3) Neutrophils # (Auto) 2.5 x10^3uL (1.8-7.7) 3.0 x10^3uL (1.8-7.7) Lymphocytes # (Auto) 1.1 x10^3/uL (1.0-4.8) 1.4 x10^3/uL (1.0-4.8) Monocytes # (Auto) 0.5 x10^3/uL (0.0-1.1) 0.6 x10^3/uL (0.0-1.1) Eosinophils # (Auto) 0.2 x10^3/uL (0.0-0.7) 0.2 x10^3/uL (0.0-0.7) Basophils # (Auto) 0.0 x10^3/uL (0.0-0.2) 0.0 x10^3/uL (0.0-0.2) Sodium Level 140 mmol/L (136-145) 144 mmol/L (136-145) Potassium Level 4.2 mmol/L (3.5-5.1) 4.2 mmol/L (3.5-5.1) Chloride Level 103 mmol/L (98-107) 104 mmol/L (98-107) Carbon Dioxide Level 35 mmol/L (21-32) 37 mmol/L (21-32) Anion Gap 2 (6-14) 3 (6-14) Blood Urea Nitrogen 25 mg/dL (8-26) 28 mg/dL (8-26) Creatinine 1.4 mg/dL (0.7-1.3) 1.6 mg/dL (0.7-1.3) Estimated GFR (Cockcroft-Gault) 59.9 51.4 Glucose Level 116 mg/dL (70-99) 93 mg/dL (70-99) Calcium Level 8.7 mg/dL (8.5-10.1) 8.2 mg/dL (8.5-10.1) Total Bilirubin 0.2 mg/dL (0.2-1.0) Direct Bilirubin < 0.1 mg/dL (0.0-0.2) Aspartate Amino Transf (AST/SGOT) 30 U/L (15-37) Alanine Aminotransferase (ALT/SGPT) 26 U/L (16-63) Alkaline Phosphatase 66 U/L (46-116) Creatine Kinase 75 U/L (39-308) Creatine Kinase MB (Mass) 0.8 ng/mL (0.0-3.6) Creatine Kinase MB Relative Index 1.1 % (0-4) Troponin I Quantitative 0.023 ng/mL (0.000-0.055) < 0.017 ng/mL (0.000-0.055) 0.022 ng/mL (0.000-0.055) RG-Iqe-L-Type Natriuretic Peptide 6164 pg/mL (0-124) Total Protein 6.2 g/dL (6.4-8.2) Albumin 2.9 g/dL (3.4-5.0) Glucose (Fingerstick) 136 mg/dL (70-99) Test 11/12/16 07:23 Glucose (Fingerstick) 67 mg/dL (70-99) Physical Exam HEENT: Neck Supple W Full Motion Chest: Symmetric LUNGS: Other (no crackles ) Heart: S1S2, RRR, no murmurs, other (tele SR) Abdomen: Soft N/T Extremities: Other (2+ bilateral LE edema ) Neurology: alert, oriented, follow commands Assessment Assessment This is a 76 yo male who is well known to our service from multiple recent admissions. Inpatient hospitalization last week due to A/C respiratory failure and A/C diastolic heart failure. Discharge home 11/09/16. Returns with complaints of shortness of breath. Report chronic shortness of breath, worse over the last 24hrs. Had difficulty breathing overnight night, called EMS. Denies any chest pain, palpitations, dizziness, or diaphoresis. Has mild LE edema bilaterally along with left lower ext wound Assessment 1. Acute on chronic diastolic CHF; NT pro BNP 6000. CXR with pleural fluid. Recent echo with preserved LV function. Improved with IV Lasix. 2. Hypertension; controlled. Continue current therapy 3. Acute on chronic respiratory failure with COPD/pulmonary HTN; PAP 70. Per pulm 4. CKD 5. 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 Weakness/debility Recommendations 1. Continue oral Lasix. Reassess need for additional diuresis in am 2. Continue secondary prevention measures 3. Supportive care. prognosis guarded LISS PIERCE APRN Nov 12, 2016 12:55
[2016-11-12 15:00] VITALS: BP 156/71
--- NOTE | 2016-11-12 15:12 | CONS ---
DATE OF CONSULTATION: 11/12/2016 CHIEF COMPLAINT: I was asked to see this 76-year-old gentleman for shortness of breath, cough, and COPD. HISTORY OF PRESENT ILLNESS: He has a history of 69-[id number]-eyim of smoking, quit smoking couple of months ago. He has had increased shortness of breath. He has cough. He discharged three days ago. He denies chest pain. He has postnasal drip. PAST MEDICAL HISTORY: Coronary artery disease, hypertension, COPD, history of PE with IVC filter in place. ALLERGIES: LISINOPRIL. MEDICATIONS: Currently, he is on albuterol, Atrovent nebulizer, Zosyn, Imdur, Lasix, Cardizem, Plavix, Norvasc, insulin, calcium, and Pulmicort. SOCIAL HISTORY: History of 05-[id number]-ceif of smoking, stopped smoking two months ago. FAMILY HISTORY: Hypertension. REVIEW OF SYSTEM: Mentioned as above, other systems otherwise negative. PHYSICIAL EXAMINATION: VITAL SIGNS: This is a well-developed gentleman, his O2 saturation is 97% on 2L of oxygen, respiratory rate 18, heart rate 77, blood pressure 162/84, and temperature 96.8. HEENT: Normocephalic, atraumatic. Pupils equal, round and reactive to light. Throat is clear. Nose is clear. NECK: Positive JVD. No lymphadenopathy. CARDIOVASCULAR: Regular rate and rhythm. PMI is not distal. ____ is normal. LUNGS: Bibasilar crackles, ____ at the right base. ABDOMEN: Soft, bowel sounds are good. There is no mass. EXTREMITIES: There is edema. Left calcaneal wound with foul-smelling discharge. LYMPHATIC: There lymphadenopathy. NEURO: Alert and oriented. SKIN: Warm. LABORATORY DATA: I reviewed the following lab data. Chest x-ray showed right effusion/atelectasis, increased muscular marking. WBC 5.3, hemoglobin 8.7, and platelets 235. Sodium 144, potassium 4.2, chloride 104, CO2 of 37, glucose 93, BUN 28, and creatinine 1.6. IMPRESSION: 1. Dyspnea multifactorial on etiology. 2. Abnormal chest x-ray. 3. Znctn-oi-rfmtars diastolic congestive heart failure. 4. Chronic obstructive pulmonary disease. 5. Left calcaneal wound with foul-smelling discharge. 6. Hypertension. 7. 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 PLAN AND RECOMMENDATIONS: 1. Continue antibiotics per Infectious Disease. 2. Bronchodilator. 3. Inhaled corticosteroid, Pulmicort. 4. Monitor respiratory status very closely. 5. Continue Plavix. 6. He has inferior vena cava filter in place. 7. Titrate FIO2 to ____ saturation ____ 8. Continue not to smoking. 9. The findings and recommendations were discussed with the patient and RN. Thank you very much for allowing me to participate in the care of this very nice gentleman. NAOMI DAMON MD DR: ROJELIO/taylor JOB#: [id number] / [id number]
[2016-11-12 19:00] VITALS: BP 152/74
[2016-11-12] MEDS: ATORVASTATIN CALCIUM 40 MG TABLET. PO SCH (20:42)
[2016-11-12] MEDS: IRON POLYSACCHARIDE COMPLEX 150 MG CAPSULE PO SCH (20:42)
[2016-11-12] MEDS: INSULIN DETEMIR 300 UNITS/3 ML INSULN.PEN. SQ SCH (20:47)
[2016-11-12 23:00] VITALS: BP 133/76
[2016-11-13] MEDS: PIPERACILLIN/TAZOBACTAM 3.375 GM in IV NORMAL SALINE 50ML 50 ML IV SCH ×5 (00:27→23:56)
--- NOTE | 2016-11-13 01:43 | CONS ---
DATE OF CONSULTATION: 11/12/2016 REQUESTING PHYSICIAN: Dr. Sana Puentes. REASON FOR CONSULTATION: Pulmonary infiltrate and leg wound. HISTORY OF PRESENT ILLNESS: This is a 76-year-old gentleman with multiple medical problems who was just discharged on the , who returned with shortness of breath, unable to breathe, had to use the machine all night. The patient does have congestive heart failure, COPD, diabetes, hypertension, leg wound and ____ about hospice has been done last admission ____, but the patient insisted on going home because sick at home. The patient is complaining of the bleeding after the Lasix has improved. He is complaining of left leg pain and left leg wound in the calcaneal area. The patient denies any nausea, vomiting or diarrhea. Denies any chest pain, denies any abdominal pain, urinary symptoms, denies any fever or chills. PAST MEDICAL HISTORY: Positive for coronary artery disease, hypertension, hyperlipidemia, COPD, pulmonary embolism, diabetes, renal insufficiency and anemia. The patient has multiple toe amputations done on the right leg. SOCIAL HISTORY: Negative for smoking, alcohol use or drug use. ALLERGIES: No known drug allergies. CURRENT MEDICATIONS: Reviewed. The patient is on azithromycin. REVIEW OF SYSTEMS: As per HPI, all other systems reviewed are negative. PHYSICAL EXAMINATION: GENERAL: Alert, oriented gentleman, not in distress. VITAL SIGNS: Stable, afebrile. HEENT: NAD. NECK: Supple, no JVP, no lymphadenopathy. LUNGS: Clear. HEART: S1, S2 regular. ABDOMEN: Benign. EXTREMITIES: There is chronic dry skin with mild edema present. Multiple toe amputations done on the right, leg bypasses done in the past. There is a foul smelling discharge from the calcaneal ulcer that patient has although appears superficial. Peripheral pulses are not palpable. NEUROLOGIC: The patient neurologically does move all the extremities. LABORATORY DATA: White count is normal. BUN 28, creatinine 1.6. BNP is 6164, albumin 2.9. IMAGING STUDIES: Chest x-ray showed right pleural effusion, volume loss, pleural fluid, atelectasis and pneumonia cannot be ruled out. IMPRESSION: 1. Left calcaneal wound with foul-smelling discharge. 2. Congestive heart failure. 3. Pleural effusion and pneumonia cannot be ruled out, although appears less likely. 4. Chronic obstructive pulmonary disease. 5. Hypertension. 6. Diabetes. 7. Debility. RECOMMENDATIONS: I would change azithromycin to Zosyn, supportive care, leg elevation, offload, PT, OT and will continue to follow. Overall, long-term prognosis is poor. Thank you very much, Dr. Puentes for giving me the opportunity to participate in this patient's care. ANA GIL MD DR: JANETTE/taylor JOB#: [id number] / [id number]
[2016-11-13 03:02] VITALS: BP 139/71
--- NOTE | 2016-11-13 03:44 | CONS ---
DATE OF CONSULTATION: LOCATION: Room #521. ATTENDING PHYSICIAN: Sana Puentes M.D. REASON FOR CONSULTATION: The patient was seen at the request of Dr. Puentes for rehab evaluation. HISTORY OF PRESENT ILLNESS: This is a 76-year-old right-handed male who was discharged from [facility] about 2 days ago, admitted after he fell at home and complained of weakness and dyspnea. He had history of congestive heart failure, chronic obstructive pulmonary disease, diabetes mellitus, peripheral vascular disease, previous pulmonary embolism and had inferior vena cava filter placement. The patient has been getting help from home health. The patient reports increased dyspnea and lower extremity edema. He is not able to sleep well and cough is worse. He was on hospice prior to the previous admission, discharged home on home health 2 days ago. PAST MEDICAL HISTORY: Also includes hypertension, hyperlipidemia, coronary artery disease, pulmonary embolism, chronic obstructive pulmonary disease, anemia, osteoarthritis, chronic renal insufficiency, diabetes mellitus. PAST SURGICAL HISTORY: The patient is status post vascular bypass surgery to his right lower extremity earlier this year. ALLERGIES: HE IS KNOWN ALLERGIC TO LISINOPRIL. SOCIAL HISTORY: He lives with his . Has stairs to manage. He usually walks using a roller walker and he has been using oxygen by nasal cannula. His had cardiac problem and his children come and help both of them. The patient was noted with right heel wound and also superficial left heel wound and also open wound over anterior aspect of the left ankle. The patient is being followed by Infectious Disease. The patient is also being followed by Wound Care. The patient admits not much pain at present time. The patient is refusing to go to [facility] care unit. He is supposed to be nonweightbearing in the right foot. PHYSICAL EXAMINATION: Today revealed an elderly male. He is alert and oriented to time, place, person and circumstance and follows commands appropriately. Moves all 4 extremities voluntarily where he had 4+/5 grade muscle strength. Deep tendon reflexes are 1 to 2+ and symmetrical with absent ankle jerks. He had crepitus on range of motion of both knee joints with knee joint effusion. He had significant edema of both feet and legs, especially right one. He had absent right second and fourth toes. He had dressing to both heels. He had superficial skin breakdown over anterior aspect of left ankle. No significant pain on range of motion of both knees or hips. He is requiring minimal assistance in coming to a standing position from sitting in the chair. Once up, he can walk using a roller walker and he had bunny boots on. He gets tired easily. ASSESSMENT: Mobility and self-care limitation in a patient with deconditioned state from frequent hospitalizations and going home, refusing [facility] care unit placement. 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 RECOMMENDATIONS: To get him PRAFO boots for use while up. He can weightbear using a PRAFO boot as he can tolerate and use Rooke boots to help ease his edema and redness while he is in bed. To obtain x-rays of his right heel to make sure he does not have any osteomyelitis of calcaneus. To obtain x-rays of the knees to determine the extent of his degenerative joint disease of his knees. He needs to go to long-term acute care if he is eligible, otherwise to [facility] care unit or to rehab unit when medically stable. Dr. Puentes, I appreciate asking me to participate in the care of this interesting patient. I will be glad to follow him with you as needed for his rehabilitation. RAHUL SCHULTE MD DR: JASON/taylor JOB#: [id number] / [id number]
[2016-11-13 07:00] VITALS: BP 145/67
[2016-11-13] MEDS: BUDESONIDE 0.5 MG/2 ML NEBU. NEB SCH ×2 (07:40→20:26)
[2016-11-13] MEDS: IPRATRPIUM/ALBUTEROL 0.5/2.5MG 3 ML NEBU. NEB SCH ×5 (07:40→22:00)
[2016-11-13] MEDS: CLOPIDOGREL BISULFATE 75 MG TABLET PO SCH (09:11)
[2016-11-13] MEDS: amLODIPine BESYLATE 10 MG TABLET PO SCH (09:12)
[2016-11-13] MEDS: ISOSORBIDE MONONITRATE ER 30 MG TAB.ER.24H PO SCH (09:12)
[2016-11-13] MEDS: IRON POLYSACCHARIDE COMPLEX 150 MG CAPSULE PO SCH ×2 (09:12→21:01)
[2016-11-13] MEDS: FUROSEMIDE 40 MG TABLET. PO SCH (09:12)
--- NOTE | 2016-11-13 10:07 | PDOC ---
PROGRESS NOTES Subjective Subjective He is sleeping in bed without oxygen and he states that he did not sleep well. Objective Objective Vital Signs Date Time Temp Pulse Resp B/P (MAP) Pulse Ox O2 Delivery O2 Flow Rate FiO2 11/13/16 09:12 71 145/67 11/13/16 07:42 Nasal Cannula 2.0 11/13/16 07:00 98.4 20 93 98.4 Intake and Output 11/13/16 07:00 Intake Total 680 ml Output Total 1075 ml Balance -395 ml Intake Oral 680 ml Output Urine Total 1075 ml Physical Exam Physical Exam He is in bed without any boots to keep pressure off his heels and he had open wound over right heel and over anterior aspect of right ankle and continues with edema of his feet and legs and dry scaly skin of his extremities. Assessment Assessment Problems Medical Problems: (1) Dyspnea Status: Acute Plan Plan of Care I have put on his Rooke boots to both feet for use while not walking and to get him PRAFO boot and he can weight bear with them on using roller walker.He needs to go to LTAC unit if he qualifies.otherwise to SNF for him to have a chance for the wounds to heel and him not loosing his feet. Comment Review of Relevant I have reviewed the following items valerie (where applicable) has been applied. Labs Laboratory Tests Test 11/11/16 13:15 11/11/16 20:56 11/11/16 22:00 11/12/16 04:45 White Blood Count 4.2 x10^3/uL (4.0-11.0) 5.3 x10^3/uL (4.0-11.0) Red Blood Count 3.24 x10^6/uL (4.30-5.70) 3.19 x10^6/uL (4.30-5.70) Hemoglobin 8.9 g/dL (13.0-17.5) 8.7 g/dL (13.0-17.5) Hematocrit 27.2 % (39.0-53.0) 27.6 % (39.0-53.0) Mean Corpuscular Volume 84 fL (79-100) 87 fL (79-100) Mean Corpuscular Hemoglobin 27 pg (25-35) 27 pg (25-35) Mean Corpuscular Hemoglobin Concent 33 g/dL (31-37) 31 g/dL (31-37) Red Cell Distribution Width 16.1 % (11.5-14.5) 16.7 % (11.5-14.5) Platelet Count 241 x10^3/uL (140-400) 235 x10^3/uL (140-400) Neutrophils (%) (Auto) 58 % (31-73) 56 % (31-73) Lymphocytes (%) (Auto) 25 % (24-48) 27 % (24-48) Monocytes (%) (Auto) 12 % (0-9) 12 % (0-9) Eosinophils (%) (Auto) 4 % (0-3) 4 % (0-3) Basophils (%) (Auto) 1 % (0-3) 1 % (0-3) Neutrophils # (Auto) 2.5 x10^3uL (1.8-7.7) 3.0 x10^3uL (1.8-7.7) Lymphocytes # (Auto) 1.1 x10^3/uL (1.0-4.8) 1.4 x10^3/uL (1.0-4.8) Monocytes # (Auto) 0.5 x10^3/uL (0.0-1.1) 0.6 x10^3/uL (0.0-1.1) Eosinophils # (Auto) 0.2 x10^3/uL (0.0-0.7) 0.2 x10^3/uL (0.0-0.7) Basophils # (Auto) 0.0 x10^3/uL (0.0-0.2) 0.0 x10^3/uL (0.0-0.2) Sodium Level 140 mmol/L (136-145) 144 mmol/L (136-145) Potassium Level 4.2 mmol/L (3.5-5.1) 4.2 mmol/L (3.5-5.1) Chloride Level 103 mmol/L (98-107) 104 mmol/L (98-107) Carbon Dioxide Level 35 mmol/L (21-32) 37 mmol/L (21-32) Anion Gap 2 (6-14) 3 (6-14) Blood Urea Nitrogen 25 mg/dL (8-26) 28 mg/dL (8-26) Creatinine 1.4 mg/dL (0.7-1.3) 1.6 mg/dL (0.7-1.3) Estimated GFR (Cockcroft-Gault) 59.9 51.4 Glucose Level 116 mg/dL (70-99) 93 mg/dL (70-99) Calcium Level 8.7 mg/dL (8.5-10.1) 8.2 mg/dL (8.5-10.1) Total Bilirubin 0.2 mg/dL (0.2-1.0) Direct Bilirubin < 0.1 mg/dL (0.0-0.2) Aspartate Amino Transf (AST/SGOT) 30 U/L (15-37) Alanine Aminotransferase (ALT/SGPT) 26 U/L (16-63) Alkaline Phosphatase 66 U/L (46-116) Creatine Kinase 75 U/L (39-308) Creatine Kinase MB (Mass) 0.8 ng/mL (0.0-3.6) Creatine Kinase MB Relative Index 1.1 % (0-4) Troponin I Quantitative 0.023 ng/mL (0.000-0.055) < 0.017 ng/mL (0.000-0.055) 0.022 ng/mL (0.000-0.055) WO-Ayr-E-Type Natriuretic Peptide 6164 pg/mL (0-124) Total Protein 6.2 g/dL (6.4-8.2) Albumin 2.9 g/dL (3.4-5.0) Glucose (Fingerstick) 136 mg/dL (70-99) Test 11/12/16 07:23 11/12/16 11:57 11/12/16 16:43 11/12/16 20:22 Glucose (Fingerstick) 67 mg/dL (70-99) 102 mg/dL (70-99) 119 mg/dL (70-99) 179 mg/dL (70-99) Test 11/13/16 07:37 Glucose (Fingerstick) 68 mg/dL (70-99) Laboratory Tests Test 11/12/16 11:57 11/12/16 16:43 11/12/16 20:22 11/13/16 07:37 Glucose (Fingerstick) 102 mg/dL (70-99) 119 mg/dL (70-99) 179 mg/dL (70-99) 68 mg/dL (70-99) Medications Current Medications Furosemide (Lasix) 40 mg 1X ONCE IVP Last administered on 11/11/16 15:46; Start 11/11/16 at 15:45; Stop 11/11/16 at 15:46; Status DC Azithromycin 250 ml @ 250 mls/hr 1X ONCE IV Last administered on 11/11/16 16 :31; Start 11/11/16 at 16:30; Stop 11/11/16 at 17:29; Status DC Ondansetron HCl (Zofran) 4 mg PRN Q8HRS PRN IV NAUSEA/VOMITING; Start 11/11/16 at 16:45; Stop 11/12/16 at 16:44; Status DC Amlodipine Besylate (Norvasc) 10 mg DAILY PO Last administered on 11/13/16 09: 12; Start 11/12/16 at 09:00 Atorvastatin Calcium (Lipitor) 40 mg HS PO Last administered on 11/12/16 20:42 ; Start 11/11/16 at 21:00 Clopidogrel Bisulfate (Plavix) 75 mg DAILY PO Last administered on 11/13/16 09 :11; Start 11/12/16 at 09:00 Diltiazem HCl (Cardizem 24hr Cd) 240 mg DAILY PO Last administered on 09:11; Start 11/12/16 at 09:00 Furosemide (Lasix) 40 mg DAILY PO Last administered on 11/13/16 09:12; Start 11/12/16 at 09:00 Nitroglycerin (Nitrostat) 0.4 mg PRN Q5MIN PRN SL CHEST PAIN; Start 11/11/16 at 17:00 Non-Formulary Medication 2 puff BID IH ; Start 11/11/16 at 21:00; Status UNV Non-Formulary Medication 1 puff BID IH ; Start 11/11/16 at 21:00; Status UNV Insulin Detemir (Levemir) 10 units QHS SQ Last administered on 11/12/16 20:47 ; Start 11/11/16 at 21:00 Isosorbide Mononitrate (Imdur) 120 mg DAILY PO Last administered on 11/13/16 09:12; Start 11/12/16 at 09:00 Budesonide (Pulmicort) 0.5 mg RTBID NEB Last administered on 11/13/16 07:40; Start 11/11/16 at 20:00 Albuterol Sulfate (Ventolin Neb Soln) 2.5 mg RTQID NEB Last administered on 19:22; Start 11/11/16 at 20:00; Stop 11/11/16 at 21:02; Status DC Albuterol/ Ipratropium (Duoneb) 3 ml RTQID NEB Last administered on 11/12/16 07:59; Start 11/11/16 at 21:30; Stop 11/12/16 at 10:06; Status DC Azithromycin (Zithromax) 250 mg DAILY PO Last administered on 11/12/16 09:10; Start 11/12/16 at 09:00; Stop 11/12/16 at 10:57; Status DC Albuterol Sulfate (Ventolin Neb Soln) 2.5 mg PRN QID PRN NEB DYSPNEA; Start at 21:15 Albuterol/ Ipratropium (Duoneb) 3 ml Q4HRS W/A NEB Last administered on 07:40; Start 11/12/16 at 14:00 Piperacillin Sod/ Tazobactam Sod 3.375 gm/Sodium Chloride 50 ml @ 100 mls/hr Q6HRS IV Last administered on 11/13/16 06:06; Start 11/12/16 at 12:00 Polysaccharide Iron Complex (Niferex 150) 150 mg BID PO Last administered on 09:12; Start 11/12/16 at 21:00 Active Scripts Active Norvasc (Amlodipine Besylate) 10 Mg Tablet 10 Mg PO DAILY 30 Days Levemir (Insulin Detemir) 100 Unit/1 Ml Vial 10 Unit SQ QHS 30 Days Lasix (Furosemide) 40 Mg Tablet 1 Tab PO DAILY Plavix (Clopidogrel Bisulfate) 75 Mg Tablet 1 Tab PO DAILY Reported Advair 100-50 Diskus (Fluticasone/Salmeterol) 1 Each Disk.w.dev 1 Puff IH BID Symbicort 160-4.5 Mcg Inhaler (Budesonide/Formoterol Fumarate) 10.2 Gm Hfa.aer.ad 2 Puff IH BID Isosorbide Mononitrate Er (Isosorbide Mononitrate) 120 Mg Tab.er.24h 120 Mg PO DAILY Diltiazem 24HR Cd (Diltiazem Hcl) 240 Mg Cap.er.24h 240 Mg PO DAILY NITROGLYCERIN SubLingual (Nitroglycerin) 0.4 Mg Tab.subl 0.4 Mg SL PRN Q5MIN PRN Atorvastatin Calcium 40 Mg Tablet 40 Mg PO HS Vitals/I & O Vital Sign - Last 24 Hours 11/12/16 11/12/16 11/12/16 11/12/16 11:00 11:00 11:29 15:00 Temp 96.8 96.8 97.1 96.8 96.8 97.1 Pulse 77 77 70 Resp 18 18 18 B/P (MAP) 163/84 (110) 163/84 (110) 156/71 (99) Pulse Ox 97 98 98 O2 Delivery Nasal Cannula Nasal Cannula Nasal Cannula Nasal Cannula O2 Flow Rate 2.0 2.0 2.0 2.0 11/12/16 11/12/16 11/12/16 11/12/16 16:03 19:00 19:41 19:42 Temp 97.9 97.9 Pulse 74 Resp 20 B/P (MAP) 152/74 (100) Pulse Ox 99 97 97 O2 Delivery Nasal Cannula Nasal Cannula Nasal Cannula Nasal Cannula O2 Flow Rate 2.0 2.0 2.0 11/12/16 11/12/16 11/13/16 11/13/16 20:40 23:00 03:02 07:00 Temp 97.9 98.1 98.4 97.9 98.1 98.4 Pulse 77 74 71 Resp 20 20 20 B/P (MAP) 133/76 (95) 139/71 (93) 145/67 (93) Pulse Ox 94 99 93 O2 Delivery Nasal Cannula Nasal Cannula Nasal Cannula Nasal Cannula O2 Flow Rate 2.0 11/13/16 11/13/16 11/13/16 11/13/16 07:42 09:11 09:12 09:12 Pulse 71 71 71 B/P (MAP) 145/67 145/67 145/67 O2 Delivery Nasal Cannula O2 Flow Rate 2.0 Intake and Output 7/21/17 7/21/17 7/22/17 15:00 23:00 07:00 Intake Total 220 ml 220 ml 240 ml Output Total 475 ml 300 ml 300 ml Balance -255 ml -80 ml -60 ml RAHUL SCHULTE MD Nov 13, 2016 10:07
[2016-11-13 11:00] VITALS: BP 119/50
--- NOTE | 2016-11-13 11:13 | PDOC ---
PROGRESS NOTES Chief Complaint Chief Complaint 1. Acute on chronic diastolic CHF, seems to be NYHA 4 2. Accelerated HTN: labile 3. Acute on chronic respiratory failure with COPD/pulmonary HTN 4. CKD 3 5. 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 weakness and debility 7. leg wound, recent foot surgery, poorly mobile History of Present Illness History of Present Illness had declined hospice last admit, Dr. Omalley recommends LTAC today, pt may not be able to qualify, will discuss with SW team PT and OT discussed cont current palliative care services unavailable this week prognosis poor, very low ability for movement or care Vitals Vitals Vital Signs Date Time Temp Pulse Resp B/P (MAP) Pulse Ox O2 Delivery O2 Flow Rate FiO2 11/13/16 11:00 98.1 82 20 119/50 (73) 92 Nasal Cannula 98.1 11/13/16 08:00 2.0 Physical Exam General: Alert, Oriented X3, Cooperative, No acute distress Heart: Regular rate Lungs: Clear, Other Abdomen: Normal bowel sounds, Soft (some tender) Extremities: Other (+ LE edema) Skin: No rashes Labs LABS Laboratory Tests Test 11/12/16 11:57 11/12/16 16:43 11/12/16 20:22 11/13/16 07:37 Glucose (Fingerstick) 102 mg/dL (70-99) 119 mg/dL (70-99) 179 mg/dL (70-99) 68 mg/dL (70-99) Test 11/13/16 10:46 Glucose (Fingerstick) 145 mg/dL (70-99) Assessment and Plan Assessmemt and Plan Problems Medical Problems: (1) Dyspnea Status: Acute Problems: Comment Review of Relevant I have reviewed the following items valerie (where applicable) has been applied. Labs Laboratory Tests Test 11/11/16 13:15 11/11/16 20:56 11/11/16 22:00 11/12/16 04:45 White Blood Count 4.2 x10^3/uL (4.0-11.0) 5.3 x10^3/uL (4.0-11.0) Red Blood Count 3.24 x10^6/uL (4.30-5.70) 3.19 x10^6/uL (4.30-5.70) Hemoglobin 8.9 g/dL (13.0-17.5) 8.7 g/dL (13.0-17.5) Hematocrit 27.2 % (39.0-53.0) 27.6 % (39.0-53.0) Mean Corpuscular Volume 84 fL (79-100) 87 fL (79-100) Mean Corpuscular Hemoglobin 27 pg (25-35) 27 pg (25-35) Mean Corpuscular Hemoglobin Concent 33 g/dL (31-37) 31 g/dL (31-37) Red Cell Distribution Width 16.1 % (11.5-14.5) 16.7 % (11.5-14.5) Platelet Count 241 x10^3/uL (140-400) 235 x10^3/uL (140-400) Neutrophils (%) (Auto) 58 % (31-73) 56 % (31-73) Lymphocytes (%) (Auto) 25 % (24-48) 27 % (24-48) Monocytes (%) (Auto) 12 % (0-9) 12 % (0-9) Eosinophils (%) (Auto) 4 % (0-3) 4 % (0-3) Basophils (%) (Auto) 1 % (0-3) 1 % (0-3) Neutrophils # (Auto) 2.5 x10^3uL (1.8-7.7) 3.0 x10^3uL (1.8-7.7) Lymphocytes # (Auto) 1.1 x10^3/uL (1.0-4.8) 1.4 x10^3/uL (1.0-4.8) Monocytes # (Auto) 0.5 x10^3/uL (0.0-1.1) 0.6 x10^3/uL (0.0-1.1) Eosinophils # (Auto) 0.2 x10^3/uL (0.0-0.7) 0.2 x10^3/uL (0.0-0.7) Basophils # (Auto) 0.0 x10^3/uL (0.0-0.2) 0.0 x10^3/uL (0.0-0.2) Sodium Level 140 mmol/L (136-145) 144 mmol/L (136-145) Potassium Level 4.2 mmol/L (3.5-5.1) 4.2 mmol/L (3.5-5.1) Chloride Level 103 mmol/L (98-107) 104 mmol/L (98-107) Carbon Dioxide Level 35 mmol/L (21-32) 37 mmol/L (21-32) Anion Gap 2 (6-14) 3 (6-14) Blood Urea Nitrogen 25 mg/dL (8-26) 28 mg/dL (8-26) Creatinine 1.4 mg/dL (0.7-1.3) 1.6 mg/dL (0.7-1.3) Estimated GFR (Cockcroft-Gault) 59.9 51.4 Glucose Level 116 mg/dL (70-99) 93 mg/dL (70-99) Calcium Level 8.7 mg/dL (8.5-10.1) 8.2 mg/dL (8.5-10.1) Total Bilirubin 0.2 mg/dL (0.2-1.0) Direct Bilirubin < 0.1 mg/dL (0.0-0.2) Aspartate Amino Transf (AST/SGOT) 30 U/L (15-37) Alanine Aminotransferase (ALT/SGPT) 26 U/L (16-63) Alkaline Phosphatase 66 U/L (46-116) Creatine Kinase 75 U/L (39-308) Creatine Kinase MB (Mass) 0.8 ng/mL (0.0-3.6) Creatine Kinase MB Relative Index 1.1 % (0-4) Troponin I Quantitative 0.023 ng/mL (0.000-0.055) < 0.017 ng/mL (0.000-0.055) 0.022 ng/mL (0.000-0.055) PR-Lka-Q-Type Natriuretic Peptide 6164 pg/mL (0-124) Total Protein 6.2 g/dL (6.4-8.2) Albumin 2.9 g/dL (3.4-5.0) Glucose (Fingerstick) 136 mg/dL (70-99) Test 11/12/16 07:23 11/12/16 11:57 11/12/16 16:43 11/12/16 20:22 Glucose (Fingerstick) 67 mg/dL (70-99) 102 mg/dL (70-99) 119 mg/dL (70-99) 179 mg/dL (70-99) Test 11/13/16 07:37 11/13/16 10:46 Glucose (Fingerstick) 68 mg/dL (70-99) 145 mg/dL (70-99) Laboratory Tests Test 11/12/16 11:57 11/12/16 16:43 11/12/16 20:22 11/13/16 07:37 Glucose (Fingerstick) 102 mg/dL (70-99) 119 mg/dL (70-99) 179 mg/dL (70-99) 68 mg/dL (70-99) Test 11/13/16 10:46 Glucose (Fingerstick) 145 mg/dL (70-99) Medications Current Medications Furosemide (Lasix) 40 mg 1X ONCE IVP Last administered on 11/11/16 15:46; Start 11/11/16 at 15:45; Stop 11/11/16 at 15:46; Status DC Azithromycin 250 ml @ 250 mls/hr 1X ONCE IV Last administered on 11/11/16 16 :31; Start 11/11/16 at 16:30; Stop 11/11/16 at 17:29; Status DC Ondansetron HCl (Zofran) 4 mg PRN Q8HRS PRN IV NAUSEA/VOMITING; Start 11/11/16 at 16:45; Stop 11/12/16 at 16:44; Status DC Amlodipine Besylate (Norvasc) 10 mg DAILY PO Last administered on 11/13/16 09: 12; Start 11/12/16 at 09:00 Atorvastatin Calcium (Lipitor) 40 mg HS PO Last administered on 11/12/16 20:42 ; Start 11/11/16 at 21:00 Clopidogrel Bisulfate (Plavix) 75 mg DAILY PO Last administered on 11/13/16 09 :11; Start 11/12/16 at 09:00 Diltiazem HCl (Cardizem 24hr Cd) 240 mg DAILY PO Last administered on 09:11; Start 11/12/16 at 09:00 Furosemide (Lasix) 40 mg DAILY PO Last administered on 11/13/16 09:12; Start 11/12/16 at 09:00 Nitroglycerin (Nitrostat) 0.4 mg PRN Q5MIN PRN SL CHEST PAIN; Start 11/11/16 at 17:00 Non-Formulary Medication 2 puff BID IH ; Start 11/11/16 at 21:00; Status UNV Non-Formulary Medication 1 puff BID IH ; Start 11/11/16 at 21:00; Status UNV Insulin Detemir (Levemir) 10 units QHS SQ Last administered on 11/12/16 20:47 ; Start 11/11/16 at 21:00 Isosorbide Mononitrate (Imdur) 120 mg DAILY PO Last administered on 11/13/16 09:12; Start 11/12/16 at 09:00 Budesonide (Pulmicort) 0.5 mg RTBID NEB Last administered on 11/13/16 07:40; Start 11/11/16 at 20:00 Albuterol Sulfate (Ventolin Neb Soln) 2.5 mg RTQID NEB Last administered on 19:22; Start 11/11/16 at 20:00; Stop 11/11/16 at 21:02; Status DC Albuterol/ Ipratropium (Duoneb) 3 ml RTQID NEB Last administered on 11/12/16 07:59; Start 11/11/16 at 21:30; Stop 11/12/16 at 10:06; Status DC Azithromycin (Zithromax) 250 mg DAILY PO Last administered on 11/12/16 09:10; Start 11/12/16 at 09:00; Stop 11/12/16 at 10:57; Status DC Albuterol Sulfate (Ventolin Neb Soln) 2.5 mg PRN QID PRN NEB DYSPNEA; Start at 21:15 Albuterol/ Ipratropium (Duoneb) 3 ml Q4HRS W/A NEB Last administered on 07:40; Start 11/12/16 at 14:00 Piperacillin Sod/ Tazobactam Sod 3.375 gm/Sodium Chloride 50 ml @ 100 mls/hr Q6HRS IV Last administered on 11/13/16 06:06; Start 11/12/16 at 12:00 Polysaccharide Iron Complex (Niferex 150) 150 mg BID PO Last administered on t 09:12; Start 11/12/16 at 21:00 Multi-Ingred Cream/Lotion/Oil/ Oint (Hydrocerin) 1 margie BID TP ; Start 11/13/16 at 21:00 Nystatin/ Triamcinolone Acetonide (Mycolog) 1 margie BID TP ; Start 11/13/16 at 21: 00 Active Scripts Active Norvasc (Amlodipine Besylate) 10 Mg Tablet 10 Mg PO DAILY 30 Days Levemir (Insulin Detemir) 100 Unit/1 Ml Vial 10 Unit SQ QHS 30 Days Lasix (Furosemide) 40 Mg Tablet 1 Tab PO DAILY Plavix (Clopidogrel Bisulfate) 75 Mg Tablet 1 Tab PO DAILY Reported Advair 100-50 Diskus (Fluticasone/Salmeterol) 1 Each Disk.w.dev 1 Puff IH BID Symbicort 160-4.5 Mcg Inhaler (Budesonide/Formoterol Fumarate) 10.2 Gm Hfa.aer.ad 2 Puff IH BID Isosorbide Mononitrate Er (Isosorbide Mononitrate) 120 Mg Tab.er.24h 120 Mg PO DAILY Diltiazem 24HR Cd (Diltiazem Hcl) 240 Mg Cap.er.24h 240 Mg PO DAILY NITROGLYCERIN SubLingual (Nitroglycerin) 0.4 Mg Tab.subl 0.4 Mg SL PRN Q5MIN PRN Atorvastatin Calcium 40 Mg Tablet 40 Mg PO HS Vitals/I & O Vital Sign - Last 24 Hours 11/12/16 11/12/16 11/12/16 11/12/16 11:29 15:00 16:03 19:00 Temp 97.1 97.9 97.1 97.9 Pulse 70 74 Resp 18 20 B/P (MAP) 156/71 (99) 152/74 (100) Pulse Ox 98 98 99 O2 Delivery Nasal Cannula Nasal Cannula Nasal Cannula Nasal Cannula O2 Flow Rate 2.0 2.0 2.0 11/12/16 11/12/16 11/12/16 11/12/16 19:41 19:42 20:40 23:00 Temp 97.9 97.9 Pulse 77 Resp 20 B/P (MAP) 133/76 (95) Pulse Ox 97 97 94 O2 Delivery Nasal Cannula Nasal Cannula Nasal Cannula Nasal Cannula O2 Flow Rate 2.0 2.0 2.0 11/13/16 11/13/16 11/13/16 11/13/16 03:02 07:00 07:42 08:00 Temp 98.1 98.4 98.1 98.4 Pulse 74 71 Resp 20 20 B/P (MAP) 139/71 (93) 145/67 (93) Pulse Ox 99 93 O2 Delivery Nasal Cannula Nasal Cannula Nasal Cannula Nasal Cannula O2 Flow Rate 2.0 2.0 11/13/16 11/13/16 11/13/16 11/13/16 09:11 09:12 09:12 11:00 Temp 98.1 98.1 Pulse 71 71 71 82 Resp 20 B/P (MAP) 145/67 145/67 145/67 119/50 (73) Pulse Ox 92 O2 Delivery Nasal Cannula Intake and Output 11/12/16 11/12/16 11/13/16 15:00 23:00 07:00 Intake Total 220 ml 220 ml 240 ml Output Total 475 ml 300 ml 300 ml Balance -255 ml -80 ml -60 ml KEVIN SHARMA MD Nov 13, 2016 11:13
--- NOTE | 2016-11-13 11:40 | PDOC ---
PULMONARY PROGRESS NOTES Subjective sob, better, occ cough, has leg pain, no runny nose Vitals Vital Signs Date Time Temp Pulse Resp B/P (MAP) Pulse Ox O2 Delivery O2 Flow Rate FiO2 11/13/16 11:00 98.1 82 20 119/50 (73) 92 Nasal Cannula 98.1 11/13/16 08:00 2.0 ROS: No Nausea, No Chest Pain General: Alert, No acute distress HEENT: Other (nc at perrl nose throat clear) Lungs: Clear, Other Cardiovascular: S1, S2 Abdomen: Soft, Non-tender, Other Neuro Exam: Alert Extremities: No Edema Skin: Warm Labs Laboratory Tests Test 11/11/16 13:15 11/11/16 20:56 11/11/16 22:00 11/12/16 04:45 White Blood Count 4.2 x10^3/uL (4.0-11.0) 5.3 x10^3/uL (4.0-11.0) Red Blood Count 3.24 x10^6/uL (4.30-5.70) 3.19 x10^6/uL (4.30-5.70) Hemoglobin 8.9 g/dL (13.0-17.5) 8.7 g/dL (13.0-17.5) Hematocrit 27.2 % (39.0-53.0) 27.6 % (39.0-53.0) Mean Corpuscular Volume 84 fL (79-100) 87 fL (79-100) Mean Corpuscular Hemoglobin 27 pg (25-35) 27 pg (25-35) Mean Corpuscular Hemoglobin Concent 33 g/dL (31-37) 31 g/dL (31-37) Red Cell Distribution Width 16.1 % (11.5-14.5) 16.7 % (11.5-14.5) Platelet Count 241 x10^3/uL (140-400) 235 x10^3/uL (140-400) Neutrophils (%) (Auto) 58 % (31-73) 56 % (31-73) Lymphocytes (%) (Auto) 25 % (24-48) 27 % (24-48) Monocytes (%) (Auto) 12 % (0-9) 12 % (0-9) Eosinophils (%) (Auto) 4 % (0-3) 4 % (0-3) Basophils (%) (Auto) 1 % (0-3) 1 % (0-3) Neutrophils # (Auto) 2.5 x10^3uL (1.8-7.7) 3.0 x10^3uL (1.8-7.7) Lymphocytes # (Auto) 1.1 x10^3/uL (1.0-4.8) 1.4 x10^3/uL (1.0-4.8) Monocytes # (Auto) 0.5 x10^3/uL (0.0-1.1) 0.6 x10^3/uL (0.0-1.1) Eosinophils # (Auto) 0.2 x10^3/uL (0.0-0.7) 0.2 x10^3/uL (0.0-0.7) Basophils # (Auto) 0.0 x10^3/uL (0.0-0.2) 0.0 x10^3/uL (0.0-0.2) Sodium Level 140 mmol/L (136-145) 144 mmol/L (136-145) Potassium Level 4.2 mmol/L (3.5-5.1) 4.2 mmol/L (3.5-5.1) Chloride Level 103 mmol/L (98-107) 104 mmol/L (98-107) Carbon Dioxide Level 35 mmol/L (21-32) 37 mmol/L (21-32) Anion Gap 2 (6-14) 3 (6-14) Blood Urea Nitrogen 25 mg/dL (8-26) 28 mg/dL (8-26) Creatinine 1.4 mg/dL (0.7-1.3) 1.6 mg/dL (0.7-1.3) Estimated GFR (Cockcroft-Gault) 59.9 51.4 Glucose Level 116 mg/dL (70-99) 93 mg/dL (70-99) Calcium Level 8.7 mg/dL (8.5-10.1) 8.2 mg/dL (8.5-10.1) Total Bilirubin 0.2 mg/dL (0.2-1.0) Direct Bilirubin < 0.1 mg/dL (0.0-0.2) Aspartate Amino Transf (AST/SGOT) 30 U/L (15-37) Alanine Aminotransferase (ALT/SGPT) 26 U/L (16-63) Alkaline Phosphatase 66 U/L (46-116) Creatine Kinase 75 U/L (39-308) Creatine Kinase MB (Mass) 0.8 ng/mL (0.0-3.6) Creatine Kinase MB Relative Index 1.1 % (0-4) Troponin I Quantitative 0.023 ng/mL (0.000-0.055) < 0.017 ng/mL (0.000-0.055) 0.022 ng/mL (0.000-0.055) EZ-Enp-P-Type Natriuretic Peptide 6164 pg/mL (0-124) Total Protein 6.2 g/dL (6.4-8.2) Albumin 2.9 g/dL (3.4-5.0) Glucose (Fingerstick) 136 mg/dL (70-99) Test 11/12/16 07:23 11/12/16 11:57 11/12/16 16:43 11/12/16 20:22 Glucose (Fingerstick) 67 mg/dL (70-99) 102 mg/dL (70-99) 119 mg/dL (70-99) 179 mg/dL (70-99) Test 11/13/16 07:37 11/13/16 10:46 Glucose (Fingerstick) 68 mg/dL (70-99) 145 mg/dL (70-99) Laboratory Tests Test 11/12/16 11:57 11/12/16 16:43 11/12/16 20:22 11/13/16 07:37 Glucose (Fingerstick) 102 mg/dL (70-99) 119 mg/dL (70-99) 179 mg/dL (70-99) 68 mg/dL (70-99) Test 11/13/16 10:46 Glucose (Fingerstick) 145 mg/dL (70-99) Medications Active Scripts Medications Dose Route/Sig Max Daily Dose Days Date Category Norvasc (Amlodipine Besylate) 10 Mg Tablet 10 Mg PO DAILY 30 10/07/16 Rx Levemir (Insulin Detemir) 100 Unit/1 Ml Vial 10 Unit SQ QHS 30 10/07/16 Rx Lasix (Furosemide) 40 Mg Tablet 1 Tab PO DAILY 10/07/16 Rx Plavix (Clopidogrel Bisulfate) 75 Mg Tablet 1 Tab PO DAILY 10/07/16 Rx Advair 100-50 Diskus (Fluticasone/Salmeterol) 1 Each Disk.w.dev 1 Puff IH BID 06/21/16 Reported Symbicort 160-4.5 Mcg Inhaler (Budesonide/Formoterol Fumarate) 10.2 Gm Hfa.aer.ad 2 Puff IH BID 06/21/16 Reported Isosorbide Mononitrate Er (Isosorbide Mononitrate) 120 Mg Tab.er.24h 120 Mg PO DAILY 06/21/16 Reported Diltiazem 24HR Cd (Diltiazem Hcl) 240 Mg Cap.er.24h 240 Mg PO DAILY 11/18/15 Reported NITROGLYCERIN SubLingual (Nitroglycerin) 0.4 Mg Tab.subl 0.4 Mg SL PRN Q5MIN PRN 11/18/15 Reported Atorvastatin Calcium 40 Mg Tablet 40 Mg PO HS 11/18/15 Reported Impression . IMPRESSION: 1. Dyspnea multifactorial on etiology. 2. Abnormal chest x-ray. 3. Ibuil-bk-igcpxyi diastolic congestive heart failure. 4. Chronic obstructive pulmonary disease. 5. Left calcaneal wound with foul-smelling discharge. 6. Hypertension. 7. 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 Plan . PLAN AND RECOMMENDATIONS: 1. Continue antibiotics per Infectious Disease. 2. Bronchodilator. 3. Inhaled corticosteroid, Pulmicort. 4. Monitor respiratory status very closely. 5. Continue Plavix. 6. He has inferior vena cava filter in place. 7. Titrate FIO2 to to keep saturation 92% 8. Continue not to smoking. 9. The findings and recommendations were discussed with the patient and RN.dyspnea SARAH VELASQUEZ MD Nov 13, 2016 11:40
--- NOTE | 2016-11-13 11:48 | PDOC ---
SHIVA JEREZ SOUND ASSISTANT 11/13/16 1148: CARDIO Progress Notes Date and Time Date of Service 11/13/2016 Time of Evaluation 1120 Subjective Subjective: No Chest Pain, No Palpitations, Other (Sitting up denies SOA. ) Vitals Vitals Vital Signs Date Time Temp Pulse Resp B/P (MAP) Pulse Ox O2 Delivery O2 Flow Rate FiO2 11/13/16 11:00 98.1 82 20 119/50 (73) 92 Nasal Cannula 98.1 11/13/16 08:00 2.0 Weight Weight [ ] Input and Output Intake and Output Intake and Output 11/13/16 07:00 Intake Total 680 ml Output Total 1075 ml Balance -395 ml Intake Oral 680 ml Output Urine Total 1075 ml Laboratory Labs Laboratory Tests Test 11/12/16 11:57 11/12/16 16:43 11/12/16 20:22 11/13/16 07:37 Glucose (Fingerstick) 102 mg/dL (70-99) 119 mg/dL (70-99) 179 mg/dL (70-99) 68 mg/dL (70-99) Test 11/13/16 10:46 Glucose (Fingerstick) 145 mg/dL (70-99) Physical Exam HEENT: Neck Supple W Full Motion Chest: Symmetric LUNGS: Other (no crackles ) Heart: S1S2, RRR (SR no significant ectopies), other (tele SR) Abdomen: Soft N/T Extremities: Other (2+ bilateral LE edema ) Neurology: alert, oriented, follow commands Assessment Assessment 1. Acute on chronic diastolic CHF: symptoms improved 2. Hypertension; controlled. 3. Acute on chronic respiratory failure with COPD/pulmonary HTN 4. CKD3 5. 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 Weakness/debility/deconditioning Recommendations 1. Continue oral Lasix. Avoid significant preload reduction. Avoid hypoglycemia 2. Pt was on hospice prior but cancelled. Recommend revisiting palliative care. 3. Continue secondary prevention measures. Follow pulmonary recommendations 4. Will follow peripherally. CLEO JUAREZ MD 11/13/16 1422: CARDIO Progress Notes Plan Plan Pt. seen and examined. Agree with above IT QUALITY ASSURANCE ANALYST note. No acute issues overnight. Poor airexchange. Quite debilitated. Continue present meds. Discussed palliative care with patient. SHIVA JEREZ SOUND ASSISTANT Nov 13, 2016 11:48 CLEO JUAREZ MD Nov 13, 2016 14:22
--- NOTE | 2016-11-13 12:05 | RAD ---
Indication pain. A single standing AP view incorporating both knees was obtained. There is bilateral medial joint space compared with narrowing compatible with degenerative disease. There are calcifications about the left knee which are incompletely evaluated on this single view and may be postsurgical. An acute bony finding is not apparent. IMPRESSION: Degenerative change involving both knees
--- NOTE | 2016-11-13 12:20 | RAD ---
Indication chronic heel pain. AP and lateral views of the right foot were obtained. 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 There is some generalized soft tissue swelling. The calcaneus appears unremarkable. Definite plain film findings of osteomyelitis are not seen. IMPRESSION: Chronic changes. No acute finding is seen. Definite plain film findings of osteomyelitis are not seen
--- NOTE | 2016-11-13 12:35 | PDOC ---
Infectious Disease Note Subjective Subjective c/o knee pain + cough ROS ROS GEN: Denies fevers, chills, sweats CV: Denies chest pain RESP: Denies shortness of air GI: Denies n/v/d Vital Sign Vital Signs Vital Signs Date Time Temp Pulse Resp B/P (MAP) Pulse Ox O2 Delivery O2 Flow Rate FiO2 11/13/16 11:54 98 Nasal Cannula 2.0 11/13/16 11:00 98.1 82 20 119/50 (73) 98.1 Physical Exam PHYSICAL EXAM GENERAL: Alert, siting in the chair, eating LUNGS: Clear HEART: S1S2 ABD: Soft, NT EXT: RLE edema. Rooke boots BALLET SOLOIST: Alert, oriented x 3, no focal neurologic deficit SKIN: No rash IV: out Labs Lab Laboratory Tests Test 11/12/16 16:43 11/12/16 20:22 11/13/16 07:37 11/13/16 10:46 Glucose (Fingerstick) 119 mg/dL (70-99) 179 mg/dL (70-99) 68 mg/dL (70-99) 145 mg/dL (70-99) Objective Assessment Left calcaneal wound with foul smelling discharge CHF Pleural effusion Debility COPD HTN Plan Plan of Care Zosyn Local wound care off load overall prognosis poor Patient seen and examined. Chart reviewed. Case discussed with CAT BREEDER. Agree with above plan. NIKOS CARPIO APRN Nov 13, 2016 12:35 JOSEPH BARRON MD Nov 13, 2016 16:58
[2016-11-13] MEDS: MINERAL OIL/PETROLATUM TOPICAL CREAM 113GM JAR. TP SCH (13:08)
[2016-11-13] MEDS: NYSTATIN/TRIAMCIN TOPICAL OINTMENT 15GM TUBE. TP SCH (13:08)
[2016-11-13 15:00] VITALS: BP 135/68
[2016-11-13 19:00] VITALS: BP 124/55
[2016-11-13] MEDS: ATORVASTATIN CALCIUM 40 MG TABLET. PO SCH (21:01)
[2016-11-13] MEDS: INSULIN DETEMIR 300 UNITS/3 ML INSULN.PEN. SQ SCH (21:08)
[2016-11-13 23:00] VITALS: BP 123/57
[2016-11-14] VITALS (8 sets, daily range): BP systolic 130–151; BP diastolic 58–82
[2016-11-14] MEDS: PIPERACILLIN/TAZOBACTAM 3.375 GM in IV NORMAL SALINE 50ML 50 ML IV SCH ×3 (06:10→18:00)
--- NOTE | 2016-11-14 07:57 | EKG ---
[facility] [address] [place] [address] Test Date: 2016-11-14 Test Time: 03:58:41 Pat Name: BRONSON TAI Department: Room: 521 1 Gender: M Felled Seam Operator Chainstitch: PRASHANT : 1940 Requested By: KEVIN SHARMA Order Number: [id number] Reading MD: Tank Lehman Measurements Intervals [place] Rate: 71 P: 50 WI: 218 QRS: 29 QRSD: 100 T: 60 QT: 436 QTc: 479 Interpretive Statements SINUS RHYTHM VENTRICULAR PREMATURE COMPLEX(ES) Electronically Signed On 11-18-2016 14:46:55 CDT by Tank Lehman
[2016-11-14] MEDS: amLODIPine BESYLATE 10 MG TABLET PO SCH (08:11)
[2016-11-14] MEDS: CLOPIDOGREL BISULFATE 75 MG TABLET PO SCH (08:11)
[2016-11-14] MEDS: FUROSEMIDE 40 MG TABLET. PO SCH (08:12)
[2016-11-14] MEDS: NYSTATIN/TRIAMCIN TOPICAL OINTMENT 15GM TUBE. TP SCH ×2 (08:12→21:14)
[2016-11-14] MEDS: IRON POLYSACCHARIDE COMPLEX 150 MG CAPSULE PO SCH ×2 (08:12→21:14)
[2016-11-14] MEDS: ISOSORBIDE MONONITRATE ER 30 MG TAB.ER.24H PO SCH (08:12)
[2016-11-14] MEDS: MINERAL OIL/PETROLATUM TOPICAL CREAM 113GM JAR. TP SCH ×2 (08:13→21:14)
[2016-11-14] MEDS ORDERED: DEXTROSE ORAL GEL 15 GM TUBE. PO PRN (08:15)
[2016-11-14] MEDS ORDERED: IV DEXTROSE 5 %-0.45 % NACL 1,000 ML IV ONE (08:45)
[2016-11-14] MEDS: BUDESONIDE 0.5 MG/2 ML NEBU. NEB SCH ×2 (09:03→20:13)
[2016-11-14] MEDS: IPRATRPIUM/ALBUTEROL 0.5/2.5MG 3 ML NEBU. NEB SCH ×4 (09:03→20:13)
--- NOTE | 2016-11-14 11:07 | PDOC ---
Infectious Disease Note Subjective Subjective Hypoglycemia CP earlier + cough ROS ROS GEN: Denies fevers, chills, sweats RESP: Denies shortness of air GI: Denies n/v/d Vital Sign Vital Signs Vital Signs Date Time Temp Pulse Resp B/P (MAP) Pulse Ox O2 Delivery O2 Flow Rate FiO2 11/14/16 09:03 98 Nasal Cannula 2.0 11/14/16 08:12 63 141/73 11/14/16 07:00 98.6 98.6 11/14/16 07:00 18 Physical Exam PHYSICAL EXAM GENERAL: Alert, NAD LUNGS: Clear HEART: S1S2 ABD: Soft, NT EXT: RLE edema. foot bandaged. Rooke boots TUNNEL HEADING INSPECTOR: Alert, oriented x 3, no focal neurologic deficit SKIN: No rash IV: out Labs Lab Laboratory Tests Test 11/13/16 16:59 11/13/16 20:52 11/13/16 20:59 11/14/16 07:59 Glucose (Fingerstick) 167 mg/dL (70-99) 159 mg/dL (70-99) 164 mg/dL (70-99) 35 mg/dL (70-99) Test 11/14/16 08:20 11/14/16 08:28 Glucose Level 76 mg/dL (70-99) Glucose (Fingerstick) 98 mg/dL (70-99) Objective Assessment Left calcaneal wound with foul smelling discharge CHF Pleural effusion Debility COPD HTN Plan Plan of Care Zosyn Local wound care off load f/u am labs overall prognosis poor NIKOS CARPIO APRN Nov 14, 2016 11:07
--- NOTE | 2016-11-14 12:29 | PDOC ---
PULMONARY PROGRESS NOTES Subjective sob, better, no cough, no leg pain, no runny nose Vitals Vital Signs Date Time Temp Pulse Resp B/P (MAP) Pulse Ox O2 Delivery O2 Flow Rate FiO2 11/14/16 11:00 98.0 78 20 147/79 (101) 94 Nasal Cannula 2.0 98.0 ROS: No Nausea, No Chest Pain General: Alert, No acute distress HEENT: Other (nc at perrl nose throat clear) Lungs: Clear, Other Cardiovascular: S1, S2 Abdomen: Soft, Non-tender, Other Neuro Exam: Alert Extremities: No Edema Skin: Warm Labs Laboratory Tests Test 11/12/16 16:43 11/12/16 20:22 11/13/16 07:37 11/13/16 10:46 Glucose (Fingerstick) 119 mg/dL (70-99) 179 mg/dL (70-99) 68 mg/dL (70-99) 145 mg/dL (70-99) Test 11/13/16 16:59 11/13/16 20:52 11/13/16 20:59 11/14/16 07:59 Glucose (Fingerstick) 167 mg/dL (70-99) 159 mg/dL (70-99) 164 mg/dL (70-99) 35 mg/dL (70-99) Test 11/14/16 08:20 11/14/16 08:28 Glucose Level 76 mg/dL (70-99) Glucose (Fingerstick) 98 mg/dL (70-99) Laboratory Tests Test 11/13/16 16:59 11/13/16 20:52 11/13/16 20:59 11/14/16 07:59 Glucose (Fingerstick) 167 mg/dL (70-99) 159 mg/dL (70-99) 164 mg/dL (70-99) 35 mg/dL (70-99) Test 11/14/16 08:20 11/14/16 08:28 Glucose Level 76 mg/dL (70-99) Glucose (Fingerstick) 98 mg/dL (70-99) Medications Active Scripts Medications Dose Route/Sig Max Daily Dose Days Date Category Norvasc (Amlodipine Besylate) 10 Mg Tablet 10 Mg PO DAILY 30 10/07/16 Rx Levemir (Insulin Detemir) 100 Unit/1 Ml Vial 10 Unit SQ QHS 30 10/07/16 Rx Lasix (Furosemide) 40 Mg Tablet 1 Tab PO DAILY 10/07/16 Rx Plavix (Clopidogrel Bisulfate) 75 Mg Tablet 1 Tab PO DAILY 10/07/16 Rx Advair 100-50 Diskus (Fluticasone/Salmeterol) 1 Each Disk.w.dev 1 Puff IH BID 06/21/16 Reported Symbicort 160-4.5 Mcg Inhaler (Budesonide/Formoterol Fumarate) 10.2 Gm Hfa.aer.ad 2 Puff IH BID 06/21/16 Reported Isosorbide Mononitrate Er (Isosorbide Mononitrate) 120 Mg Tab.er.24h 120 Mg PO DAILY 06/21/16 Reported Diltiazem 24HR Cd (Diltiazem Hcl) 240 Mg Cap.er.24h 240 Mg PO DAILY 11/18/15 Reported NITROGLYCERIN SubLingual (Nitroglycerin) 0.4 Mg Tab.subl 0.4 Mg SL PRN Q5MIN PRN 11/18/15 Reported Atorvastatin Calcium 40 Mg Tablet 40 Mg PO HS 11/18/15 Reported Impression . . IMPRESSION: 1. Dyspnea multifactorial on etiology. 2. Abnormal chest x-ray. 3. Aokjx-eu-hatmgcg diastolic congestive heart failure. 4. Chronic obstructive pulmonary disease. 5. Left calcaneal wound with foul-smelling discharge. 6. Hypertension. 7. 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 Plan . Plan . PLAN AND RECOMMENDATIONS: 1. Continue antibiotics per Infectious Disease. 2. Bronchodilator. 3. Inhaled corticosteroid, Pulmicort. 4. Monitor respiratory status very closely. 5. Continue Plavix. 6. He has inferior vena cava filter in place. 7. Titrate FIO2 to to keep saturation 92% 8. Continue not to smoking. 9. The findings and recommendations were discussed with the patient and RN.[email or web address] SARAH VELASQUEZ MD Nov 14, 2016 12:29
--- NOTE | 2016-11-14 13:30 | PDOC ---
PROGRESS NOTES Chief Complaint Chief Complaint acute on chronic CHF, weakness, debility 1. Acute on chronic diastolic CHF, seems to be NYHA 4 2. Accelerated HTN: labile 3. Acute on chronic respiratory failure with COPD/pulmonary HTN 4. CKD 3 5. 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 weakness and debility 7. leg wound, recent foot surgery, poorly mobile - Left calcaneal wound w/ foul smelling discharge History of Present Illness History of Present Illness more active and alert today 'improving PT and OT discussed cont current palliative care services unavailable this week, hospice had been reviewed by other services. prognosis poor, very low ability for movement or care Vitals Vitals Vital Signs Date Time Temp Pulse Resp B/P (MAP) Pulse Ox O2 Delivery O2 Flow Rate FiO2 11/14/16 11:00 98.0 78 20 147/79 (101) 94 Nasal Cannula 2.0 98.0 Physical Exam General: Alert, Oriented X3, Cooperative, No acute distress Heart: Regular rate Lungs: Clear, Other Abdomen: Normal bowel sounds, Soft (some tender) Extremities: Other (+ LE edema) Skin: No rashes Labs LABS Laboratory Tests Test 11/13/16 16:59 11/13/16 20:52 11/13/16 20:59 11/14/16 07:59 Glucose (Fingerstick) 167 mg/dL (70-99) 159 mg/dL (70-99) 164 mg/dL (70-99) 35 mg/dL (70-99) Test 11/14/16 08:20 11/14/16 08:28 Glucose Level 76 mg/dL (70-99) Glucose (Fingerstick) 98 mg/dL (70-99) Review of Systems Review of Systems weakness foot pain no n..v d Assessment and Plan Assessmemt and Plan Problems Medical Problems: (1) Dyspnea Status: Acute Problems: Comment Review of Relevant I have reviewed the following items valerie (where applicable) has been applied. Labs Laboratory Tests Test 11/12/16 16:43 11/12/16 20:22 11/13/16 07:37 11/13/16 10:46 Glucose (Fingerstick) 119 mg/dL (70-99) 179 mg/dL (70-99) 68 mg/dL (70-99) 145 mg/dL (70-99) Test 11/13/16 16:59 11/13/16 20:52 11/13/16 20:59 11/14/16 07:59 Glucose (Fingerstick) 167 mg/dL (70-99) 159 mg/dL (70-99) 164 mg/dL (70-99) 35 mg/dL (70-99) Test 11/14/16 08:20 11/14/16 08:28 Glucose Level 76 mg/dL (70-99) Glucose (Fingerstick) 98 mg/dL (70-99) Laboratory Tests Test 11/13/16 16:59 11/13/16 20:52 11/13/16 20:59 11/14/16 07:59 Glucose (Fingerstick) 167 mg/dL (70-99) 159 mg/dL (70-99) 164 mg/dL (70-99) 35 mg/dL (70-99) Test 11/14/16 08:20 11/14/16 08:28 Glucose Level 76 mg/dL (70-99) Glucose (Fingerstick) 98 mg/dL (70-99) Medications Current Medications Furosemide (Lasix) 40 mg 1X ONCE IVP Last administered on 11/11/16 15:46; Start 11/11/16 at 15:45; Stop 11/11/16 at 15:46; Status DC Azithromycin 250 ml @ 250 mls/hr 1X ONCE IV Last administered on 11/11/16 16 :31; Start 11/11/16 at 16:30; Stop 11/11/16 at 17:29; Status DC Ondansetron HCl (Zofran) 4 mg PRN Q8HRS PRN IV NAUSEA/VOMITING; Start 11/11/16 at 16:45; Stop 11/12/16 at 16:44; Status DC Amlodipine Besylate (Norvasc) 10 mg DAILY PO Last administered on 11/14/16 08: 11; Start 11/12/16 at 09:00 Atorvastatin Calcium (Lipitor) 40 mg HS PO Last administered on 11/13/16 21:01 ; Start 11/11/16 at 21:00 Clopidogrel Bisulfate (Plavix) 75 mg DAILY PO Last administered on 11/14/16 08 :11; Start 11/12/16 at 09:00 Diltiazem HCl (Cardizem 24hr Cd) 240 mg DAILY PO Last administered on 08:11; Start 11/12/16 at 09:00 Furosemide (Lasix) 40 mg DAILY PO Last administered on 11/14/16 08:12; Start 11/12/16 at 09:00 Nitroglycerin (Nitrostat) 0.4 mg PRN Q5MIN PRN SL CHEST PAIN Last administered on 11/14/16 03:23; Start 11/11/16 at 17:00 Non-Formulary Medication 2 puff BID IH ; Start 11/11/16 at 21:00; Status UNV Non-Formulary Medication 1 puff BID IH ; Start 11/11/16 at 21:00; Status UNV Insulin Detemir (Levemir) 10 units QHS SQ Last administered on 11/13/16 21:08 ; Start 11/11/16 at 21:00; Stop 11/14/16 at 08:42; Status DC Isosorbide Mononitrate (Imdur) 120 mg DAILY PO Last administered on 11/14/16 08:12; Start 11/12/16 at 09:00 Budesonide (Pulmicort) 0.5 mg RTBID NEB Last administered on 11/14/16 09:03; Start 11/11/16 at 20:00 Albuterol Sulfate (Ventolin Neb Soln) 2.5 mg RTQID NEB Last administered on 19:22; Start 11/11/16 at 20:00; Stop 11/11/16 at 21:02; Status DC Albuterol/ Ipratropium (Duoneb) 3 ml RTQID NEB Last administered on 11/12/16 07:59; Start 11/11/16 at 21:30; Stop 11/12/16 at 10:06; Status DC Azithromycin (Zithromax) 250 mg DAILY PO Last administered on 11/12/16 09:10; Start 11/12/16 at 09:00; Stop 11/12/16 at 10:57; Status DC Albuterol Sulfate (Ventolin Neb Soln) 2.5 mg PRN QID PRN NEB DYSPNEA; Start at 21:15 Albuterol/ Ipratropium (Duoneb) 3 ml Q4HRS W/A NEB Last administered on 09:03; Start 11/12/16 at 14:00 Piperacillin Sod/ Tazobactam Sod 3.375 gm/Sodium Chloride 50 ml @ 100 mls/hr Q6HRS IV Last administered on 11/14/16 11:43; Start 11/12/16 at 12:00 Polysaccharide Iron Complex (Niferex 150) 150 mg BID PO Last administered on 08:12; Start 11/12/16 at 21:00 Multi-Ingred Cream/Lotion/Oil/ Oint (Hydrocerin) 1 margie BID TP Last administered on 11/14/16 08:13; Start 11/13/16 at 21:00 Nystatin/ Triamcinolone Acetonide (Mycolog) 1 margie BID TP Last administered on 08:12; Start 11/13/16 at 21:00 Glucose (Insta-Glucose) 15 gm PRN Q15MIN PRN PO LOW BLOOD SUGAR Last administered on 11/14/16 08:06; Start 11/14/16 at 08:15 Dextrose/Sodium Chloride 1,000 ml @ 100 mls/hr 1X ONCE IV Last administered on 11/14/16 11:42; Start 11/14/16 at 08:45; Stop 11/14/16 at 18:44 Active Scripts Active Norvasc (Amlodipine Besylate) 10 Mg Tablet 10 Mg PO DAILY 30 Days Levemir (Insulin Detemir) 100 Unit/1 Ml Vial 10 Unit SQ QHS 30 Days Lasix (Furosemide) 40 Mg Tablet 1 Tab PO DAILY Plavix (Clopidogrel Bisulfate) 75 Mg Tablet 1 Tab PO DAILY Reported Advair 100-50 Diskus (Fluticasone/Salmeterol) 1 Each Disk.w.dev 1 Puff IH BID Symbicort 160-4.5 Mcg Inhaler (Budesonide/Formoterol Fumarate) 10.2 Gm Hfa.aer.ad 2 Puff IH BID Isosorbide Mononitrate Er (Isosorbide Mononitrate) 120 Mg Tab.er.24h 120 Mg PO DAILY Diltiazem 24HR Cd (Diltiazem Hcl) 240 Mg Cap.er.24h 240 Mg PO DAILY NITROGLYCERIN SubLingual (Nitroglycerin) 0.4 Mg Tab.subl 0.4 Mg SL PRN Q5MIN PRN Atorvastatin Calcium 40 Mg Tablet 40 Mg PO HS Vitals/I & O Vital Sign - Last 24 Hours 11/13/16 11/13/16 11/13/16 11/13/16 15:00 15:57 19:00 20:00 Temp 98.1 99.7 98.1 99.7 Pulse 76 81 Resp 20 18 B/P (MAP) 135/68 (90) 124/55 (78) Pulse Ox 94 98 O2 Delivery Nasal Cannula Nasal Cannula Nasal Cannula Nasal Cannula O2 Flow Rate 2.0 2.0 11/13/16 11/13/16 11/14/16 11/14/16 20:26 23:00 03:00 03:23 Temp 98.1 98.6 98.1 98.6 Pulse 66 70 73 Resp 18 18 B/P (MAP) 123/57 (79) 135/64 (87) 144/79 Pulse Ox 96 98 99 O2 Delivery Nasal Cannula Nasal Cannula Nasal Cannula O2 Flow Rate 2.0 11/14/16 11/14/16 11/14/16 11/14/16 03:23 04:25 07:00 07:00 Temp 98.6 98.6 98.6 98.6 Pulse 73 63 50 63 Resp 18 B/P (MAP) 144/79 (100) 141/73 (95) 151/75 (100) 141/73 (95) Pulse Ox 100 99 O2 Delivery Nasal Cannula Nasal Cannula O2 Flow Rate 2.0 2.0 11/14/16 11/14/16 11/14/16 11/14/16 08:00 08:11 08:11 08:12 Pulse 63 63 63 B/P (MAP) 141/73 141/73 141/73 O2 Delivery Nasal Cannula O2 Flow Rate 2.0 11/14/16 11/14/16 09:03 11:00 Temp 98.0 98.0 Pulse 78 Resp 20 B/P (MAP) 147/79 (101) Pulse Ox 98 94 O2 Delivery Nasal Cannula Nasal Cannula O2 Flow Rate 2.0 2.0 Intake and Output 11/13/16 11/13/16 11/14/16 15:00 23:00 07:00 Intake Total 500 ml 1100 ml 0 ml Output Total 425 ml 650 ml 900 ml Balance 75 ml 450 ml -900 ml KEVIN SHARMA MD Nov 14, 2016 13:30
[2016-11-14] MEDS: ATORVASTATIN CALCIUM 40 MG TABLET. PO SCH (21:14)
[2016-11-15] MEDS: PIPERACILLIN/TAZOBACTAM 3.375 GM in IV NORMAL SALINE 50ML 50 ML IV SCH ×3 (00:37→11:17)
[2016-11-15 03:00] VITALS: BP 134/57
[2016-11-15 04:53] LABS: BASO % 1 % (0-3); EOS % 5 % (0-3); HEMATOCRIT 27.6 % (39.0-53.0); HEMOGLOBIN 8.7 g/dL (13.0-17.5); LYMPH # 1.3 x10^3/uL (1.0-4.8); LYMPH % 22 % (24-48); MEAN CORPUSCULAR HEMOGLOBIN 27 pg (25-35); MEAN CORPUSCULAR HGB CONC 32 g/dL (31-37); MEAN CORPUSCULAR VOLUME 86 fL (79-100); MONO % 9 % (0-9); NEUT % 64 % (31-73); PLATELET COUNT 259 x10^3/uL (140-400); RED BLOOD COUNT 3.22 x10^6/uL (4.30-5.70); RED CELL DISTRIBUTION WIDTH 16.4 % (11.5-14.5); WHITE BLOOD COUNT 6.1 x10^3/uL (4.0-11.0)
[2016-11-15 05:27] LABS: ALBUMIN 2.9 g/dL (3.4-5.0); ALBUMIN/GLOBULIN RATIO 0.7 (1.0-1.7); CALCIUM 8.2 mg/dL (8.5-10.1); CREATININE 1.6 mg/dL (0.7-1.3); GFR 51.4; POTASSIUM 4.5 mmol/L (3.5-5.1); TOTAL BILIRUBIN 0.3 mg/dL (0.2-1.0); TOTAL PROTEIN 6.8 g/dL (6.4-8.2)
[2016-11-15 07:00] VITALS: BP 137/86
[2016-11-15] MEDS: BUDESONIDE 0.5 MG/2 ML NEBU. NEB SCH ×2 (07:15→19:49)
[2016-11-15] MEDS: IPRATRPIUM/ALBUTEROL 0.5/2.5MG 3 ML NEBU. NEB SCH ×4 (07:15→19:49)
--- NOTE | 2016-11-15 09:03 | PDOC ---
PROGRESS NOTES Chief Complaint Chief Complaint acute on chronic CHF, weakness, debility 1. Acute on chronic diastolic CHF, seems to be NYHA 4 2. Accelerated HTN: labile 3. Acute on chronic respiratory failure with COPD/pulmonary HTN 4. CKD 3 5. 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 weakness and debility 7. leg wound, recent foot surgery, poorly mobile - Left calcaneal wound w/ foul smelling discharge History of Present Illness History of Present Illness more active, Was sitting up and eating breakfast 'improving knee pain and leg weakness, again declines SNU, I discussed my concerns for readmit PT and OT discussed cont current prognosis poor, very low ability for movement or care Vitals Vitals Vital Signs Date Time Temp Pulse Resp B/P (MAP) Pulse Ox O2 Delivery O2 Flow Rate FiO2 11/15/16 07:16 100 Nasal Cannula 2.0 11/15/16 07:00 98.6 72 18 137/86 (103) 98.6 Physical Exam General: Alert, Oriented X3, Cooperative, No acute distress Heart: Regular rate Lungs: Clear, Other Abdomen: Normal bowel sounds, Soft (some tender) Extremities: Other (+ LE edema) Skin: No rashes Labs LABS Laboratory Tests Test 11/14/16 11:39 11/14/16 16:46 11/14/16 20:50 11/15/16 03:31 Glucose (Fingerstick) 108 mg/dL (70-99) 118 mg/dL (70-99) 188 mg/dL (70-99) White Blood Count 6.1 x10^3/uL (4.0-11.0) Red Blood Count 3.22 x10^6/uL (4.30-5.70) Hemoglobin 8.7 g/dL (13.0-17.5) Hematocrit 27.6 % (39.0-53.0) Mean Corpuscular Volume 86 fL (79-100) Mean Corpuscular Hemoglobin 27 pg (25-35) Mean Corpuscular Hemoglobin Concent 32 g/dL (31-37) Red Cell Distribution Width 16.4 % (11.5-14.5) Platelet Count 259 x10^3/uL (140-400) Neutrophils (%) (Auto) 64 % (31-73) Lymphocytes (%) (Auto) 22 % (24-48) Monocytes (%) (Auto) 9 % (0-9) Eosinophils (%) (Auto) 5 % (0-3) Basophils (%) (Auto) 1 % (0-3) Neutrophils # (Auto) 3.9 x10^3uL (1.8-7.7) Lymphocytes # (Auto) 1.3 x10^3/uL (1.0-4.8) Monocytes # (Auto) 0.5 x10^3/uL (0.0-1.1) Eosinophils # (Auto) 0.3 x10^3/uL (0.0-0.7) Basophils # (Auto) 0.0 x10^3/uL (0.0-0.2) Erythrocyte Sedimentation Rate 72 (0-15) Sodium Level 143 mmol/L (136-145) Potassium Level 4.5 mmol/L (3.5-5.1) Chloride Level 104 mmol/L (98-107) Carbon Dioxide Level 37 mmol/L (21-32) Anion Gap 2 (6-14) Blood Urea Nitrogen 20 mg/dL (8-26) Creatinine 1.6 mg/dL (0.7-1.3) Estimated GFR (Cockcroft-Gault) 51.4 BUN/Creatinine Ratio 13 (6-20) Glucose Level 152 mg/dL (70-99) Calcium Level 8.2 mg/dL (8.5-10.1) Total Bilirubin 0.3 mg/dL (0.2-1.0) Aspartate Amino Transf (AST/SGOT) 16 U/L (15-37) Alanine Aminotransferase (ALT/SGPT) 20 U/L (16-63) Alkaline Phosphatase 65 U/L (46-116) C-Reactive Protein, Quantitative 2.0 mg/L (0-3.3) Total Protein 6.8 g/dL (6.4-8.2) Albumin 2.9 g/dL (3.4-5.0) Albumin/Globulin Ratio 0.7 (1.0-1.7) Test 11/15/16 05:57 11/15/16 07:34 Glucose (Fingerstick) 107 mg/dL (70-99) 92 mg/dL (70-99) Review of Systems Review of Systems knee pain weakness mobility better Assessment and Plan Assessmemt and Plan Problems Medical Problems: (1) Dyspnea Status: Acute Problems: Comment Review of Relevant I have reviewed the following items valerie (where applicable) has been applied. Labs Laboratory Tests Test 11/13/16 10:46 11/13/16 16:59 11/13/16 20:52 11/13/16 20:59 Glucose (Fingerstick) 145 mg/dL (70-99) 167 mg/dL (70-99) 159 mg/dL (70-99) 164 mg/dL (70-99) Test 11/14/16 07:59 11/14/16 08:20 11/14/16 08:28 11/14/16 11:39 Glucose (Fingerstick) 35 mg/dL (70-99) 98 mg/dL (70-99) 108 mg/dL (70-99) Glucose Level 76 mg/dL (70-99) Test 11/14/16 16:46 11/14/16 20:50 11/15/16 03:31 11/15/16 05:57 Glucose (Fingerstick) 118 mg/dL (70-99) 188 mg/dL (70-99) 107 mg/dL (70-99) White Blood Count 6.1 x10^3/uL (4.0-11.0) Red Blood Count 3.22 x10^6/uL (4.30-5.70) Hemoglobin 8.7 g/dL (13.0-17.5) Hematocrit 27.6 % (39.0-53.0) Mean Corpuscular Volume 86 fL (79-100) Mean Corpuscular Hemoglobin 27 pg (25-35) Mean Corpuscular Hemoglobin Concent 32 g/dL (31-37) Red Cell Distribution Width 16.4 % (11.5-14.5) Platelet Count 259 x10^3/uL (140-400) Neutrophils (%) (Auto) 64 % (31-73) Lymphocytes (%) (Auto) 22 % (24-48) Monocytes (%) (Auto) 9 % (0-9) Eosinophils (%) (Auto) 5 % (0-3) Basophils (%) (Auto) 1 % (0-3) Neutrophils # (Auto) 3.9 x10^3uL (1.8-7.7) Lymphocytes # (Auto) 1.3 x10^3/uL (1.0-4.8) Monocytes # (Auto) 0.5 x10^3/uL (0.0-1.1) Eosinophils # (Auto) 0.3 x10^3/uL (0.0-0.7) Basophils # (Auto) 0.0 x10^3/uL (0.0-0.2) Erythrocyte Sedimentation Rate 72 (0-15) Sodium Level 143 mmol/L (136-145) Potassium Level 4.5 mmol/L (3.5-5.1) Chloride Level 104 mmol/L (98-107) Carbon Dioxide Level 37 mmol/L (21-32) Anion Gap 2 (6-14) Blood Urea Nitrogen 20 mg/dL (8-26) Creatinine 1.6 mg/dL (0.7-1.3) Estimated GFR (Cockcroft-Gault) 51.4 BUN/Creatinine Ratio 13 (6-20) Glucose Level 152 mg/dL (70-99) Calcium Level 8.2 mg/dL (8.5-10.1) Total Bilirubin 0.3 mg/dL (0.2-1.0) Aspartate Amino Transf (AST/SGOT) 16 U/L (15-37) Alanine Aminotransferase (ALT/SGPT) 20 U/L (16-63) Alkaline Phosphatase 65 U/L (46-116) C-Reactive Protein, Quantitative 2.0 mg/L (0-3.3) Total Protein 6.8 g/dL (6.4-8.2) Albumin 2.9 g/dL (3.4-5.0) Albumin/Globulin Ratio 0.7 (1.0-1.7) Test 11/15/16 07:34 Glucose (Fingerstick) 92 mg/dL (70-99) Laboratory Tests Test 11/14/16 11:39 11/14/16 16:46 11/14/16 20:50 11/15/16 03:31 Glucose (Fingerstick) 108 mg/dL (70-99) 118 mg/dL (70-99) 188 mg/dL (70-99) White Blood Count 6.1 x10^3/uL (4.0-11.0) Red Blood Count 3.22 x10^6/uL (4.30-5.70) Hemoglobin 8.7 g/dL (13.0-17.5) Hematocrit 27.6 % (39.0-53.0) Mean Corpuscular Volume 86 fL (79-100) Mean Corpuscular Hemoglobin 27 pg (25-35) Mean Corpuscular Hemoglobin Concent 32 g/dL (31-37) Red Cell Distribution Width 16.4 % (11.5-14.5) Platelet Count 259 x10^3/uL (140-400) Neutrophils (%) (Auto) 64 % (31-73) Lymphocytes (%) (Auto) 22 % (24-48) Monocytes (%) (Auto) 9 % (0-9) Eosinophils (%) (Auto) 5 % (0-3) Basophils (%) (Auto) 1 % (0-3) Neutrophils # (Auto) 3.9 x10^3uL (1.8-7.7) Lymphocytes # (Auto) 1.3 x10^3/uL (1.0-4.8) Monocytes # (Auto) 0.5 x10^3/uL (0.0-1.1) Eosinophils # (Auto) 0.3 x10^3/uL (0.0-0.7) Basophils # (Auto) 0.0 x10^3/uL (0.0-0.2) Erythrocyte Sedimentation Rate 72 (0-15) Sodium Level 143 mmol/L (136-145) Potassium Level 4.5 mmol/L (3.5-5.1) Chloride Level 104 mmol/L (98-107) Carbon Dioxide Level 37 mmol/L (21-32) Anion Gap 2 (6-14) Blood Urea Nitrogen 20 mg/dL (8-26) Creatinine 1.6 mg/dL (0.7-1.3) Estimated GFR (Cockcroft-Gault) 51.4 BUN/Creatinine Ratio 13 (6-20) Glucose Level 152 mg/dL (70-99) Calcium Level 8.2 mg/dL (8.5-10.1) Total Bilirubin 0.3 mg/dL (0.2-1.0) Aspartate Amino Transf (AST/SGOT) 16 U/L (15-37) Alanine Aminotransferase (ALT/SGPT) 20 U/L (16-63) Alkaline Phosphatase 65 U/L (46-116) C-Reactive Protein, Quantitative 2.0 mg/L (0-3.3) Total Protein 6.8 g/dL (6.4-8.2) Albumin 2.9 g/dL (3.4-5.0) Albumin/Globulin Ratio 0.7 (1.0-1.7) Test 11/15/16 05:57 11/15/16 07:34 Glucose (Fingerstick) 107 mg/dL (70-99) 92 mg/dL (70-99) Medications Current Medications Furosemide (Lasix) 40 mg 1X ONCE IVP Last administered on 11/11/16 15:46; Start 11/11/16 at 15:45; Stop 11/11/16 at 15:46; Status DC Azithromycin 250 ml @ 250 mls/hr 1X ONCE IV Last administered on 11/11/16 16 :31; Start 11/11/16 at 16:30; Stop 11/11/16 at 17:29; Status DC Ondansetron HCl (Zofran) 4 mg PRN Q8HRS PRN IV NAUSEA/VOMITING; Start 11/11/16 at 16:45; Stop 11/12/16 at 16:44; Status DC Amlodipine Besylate (Norvasc) 10 mg DAILY PO Last administered on 11/14/16 08: 11; Start 11/12/16 at 09:00 Atorvastatin Calcium (Lipitor) 40 mg HS PO Last administered on 11/14/16 21:14 ; Start 11/11/16 at 21:00 Clopidogrel Bisulfate (Plavix) 75 mg DAILY PO Last administered on 11/14/16 08 :11; Start 11/12/16 at 09:00 Diltiazem HCl (Cardizem 24hr Cd) 240 mg DAILY PO Last administered on 08:11; Start 11/12/16 at 09:00 Furosemide (Lasix) 40 mg DAILY PO Last administered on 11/14/16 08:12; Start 11/12/16 at 09:00 Nitroglycerin (Nitrostat) 0.4 mg PRN Q5MIN PRN SL CHEST PAIN Last administered on 11/14/16 03:23; Start 11/11/16 at 17:00 Non-Formulary Medication 2 puff BID IH ; Start 11/11/16 at 21:00; Status UNV Non-Formulary Medication 1 puff BID IH ; Start 11/11/16 at 21:00; Status UNV Insulin Detemir (Levemir) 10 units QHS SQ Last administered on 11/13/16 21:08 ; Start 11/11/16 at 21:00; Stop 11/14/16 at 08:42; Status DC Isosorbide Mononitrate (Imdur) 120 mg DAILY PO Last administered on 11/14/16 08:12; Start 11/12/16 at 09:00 Budesonide (Pulmicort) 0.5 mg RTBID NEB Last administered on 11/15/16 07:15; Start 11/11/16 at 20:00 Albuterol Sulfate (Ventolin Neb Soln) 2.5 mg RTQID NEB Last administered on 19:22; Start 11/11/16 at 20:00; Stop 11/11/16 at 21:02; Status DC Albuterol/ Ipratropium (Duoneb) 3 ml RTQID NEB Last administered on 11/12/16 07:59; Start 11/11/16 at 21:30; Stop 11/12/16 at 10:06; Status DC Azithromycin (Zithromax) 250 mg DAILY PO Last administered on 11/12/16 09:10; Start 11/12/16 at 09:00; Stop 11/12/16 at 10:57; Status DC Albuterol Sulfate (Ventolin Neb Soln) 2.5 mg PRN QID PRN NEB DYSPNEA; Start at 21:15 Albuterol/ Ipratropium (Duoneb) 3 ml Q4HRS W/A NEB Last administered on 07:15; Start 11/12/16 at 14:00 Piperacillin Sod/ Tazobactam Sod 3.375 gm/Sodium Chloride 50 ml @ 100 mls/hr Q6HRS IV Last administered on 11/15/16 05:51; Start 11/12/16 at 12:00 Polysaccharide Iron Complex (Niferex 150) 150 mg BID PO Last administered on 21:14; Start 11/12/16 at 21:00 Multi-Ingred Cream/Lotion/Oil/ Oint (Hydrocerin) 1 margie BID TP Last administered on 11/14/16 21:14; Start 11/13/16 at 21:00 Nystatin/ Triamcinolone Acetonide (Mycolog) 1 margie BID TP Last administered on 21:14; Start 11/13/16 at 21:00 Glucose (Insta-Glucose) 15 gm PRN Q15MIN PRN PO LOW BLOOD SUGAR Last administered on 11/14/16 08:06; Start 11/14/16 at 08:15 Dextrose/Sodium Chloride 1,000 ml @ 100 mls/hr 1X ONCE IV Last administered on 11/14/16 11:42; Start 11/14/16 at 08:45; Stop 11/14/16 at 18:44; Status DC Tramadol HCl (Ultram) 50 mg PRN Q6HRS PRN PO PAIN; Start 11/15/16 at 08:30 Active Scripts Active Norvasc (Amlodipine Besylate) 10 Mg Tablet 10 Mg PO DAILY 30 Days Levemir (Insulin Detemir) 100 Unit/1 Ml Vial 10 Unit SQ QHS 30 Days Lasix (Furosemide) 40 Mg Tablet 1 Tab PO DAILY Plavix (Clopidogrel Bisulfate) 75 Mg Tablet 1 Tab PO DAILY Reported Advair 100-50 Diskus (Fluticasone/Salmeterol) 1 Each Disk.w.dev 1 Puff IH BID Symbicort 160-4.5 Mcg Inhaler (Budesonide/Formoterol Fumarate) 10.2 Gm Hfa.aer.ad 2 Puff IH BID Isosorbide Mononitrate Er (Isosorbide Mononitrate) 120 Mg Tab.er.24h 120 Mg PO DAILY Diltiazem 24HR Cd (Diltiazem Hcl) 240 Mg Cap.er.24h 240 Mg PO DAILY NITROGLYCERIN SubLingual (Nitroglycerin) 0.4 Mg Tab.subl 0.4 Mg SL PRN Q5MIN PRN Atorvastatin Calcium 40 Mg Tablet 40 Mg PO HS Vitals/I & O Vital Sign - Last 24 Hours 11/14/16 11/14/16 11/14/16 11/14/16 09:03 11:00 15:00 15:57 Temp 98.0 98.7 98.0 98.7 Pulse 78 63 Resp 20 18 B/P (MAP) 147/79 (101) 143/82 (102) Pulse Ox 98 94 95 O2 Delivery Nasal Cannula Nasal Cannula Nasal Cannula Nasal Cannula O2 Flow Rate 2.0 2.0 2.0 2.0 11/14/16 11/14/16 11/14/16 11/14/16 19:00 20:00 20:15 20:15 Temp 97.5 97.5 Pulse 80 Resp 20 B/P (MAP) 144/75 (98) Pulse Ox 99 100 100 O2 Delivery Nasal Cannula Nasal Cannula Nasal Cannula Nasal Cannula O2 Flow Rate 2.0 2.0 2.0 2.0 11/14/16 11/15/16 11/15/16 11/15/16 23:00 03:00 07:00 07:16 Temp 98.6 98.1 98.6 98.6 98.1 98.6 Pulse 78 76 72 Resp 20 20 18 B/P (MAP) 130/58 (82) 134/57 (82) 137/86 (103) Pulse Ox 99 91 98 100 O2 Delivery Nasal Cannula Nasal Cannula Nasal Cannula Nasal Cannula O2 Flow Rate 2.0 2.0 2.0 2.0 Intake and Output 11/14/16 11/14/16 11/15/16 14:59 22:59 06:59 Intake Total 1140 ml 600 ml Output Total 1000 ml 500 ml Balance 140 ml 100 ml KEVIN SHARMA MD Nov 15, 2016 09:03
--- NOTE | 2016-11-15 09:25 | PDOC ---
PROGRESS NOTES Subjective Subjective He feels better. Objective Objective Vital Signs Date Time Temp Pulse Resp B/P (MAP) Pulse Ox O2 Delivery O2 Flow Rate FiO2 11/15/16 07:16 100 Nasal Cannula 2.0 11/15/16 07:00 98.6 72 18 137/86 (103) 98.6 Intake and Output 11/15/16 07:00 Intake Total 1740 ml Output Total 1500 ml Balance 240 ml Intake Oral 1740 ml Output Urine Total 1500 ml Physical Exam Physical Exam He is lying on his right side with [place] boots on and he is willing to consider going to SNF or LTAC unit. Assessment Assessment Problems Medical Problems: (1) Dyspnea Status: Acute Plan Plan of Care To get him up as tolerated and to SNF or LTAC unit if he qualifies. Comment Review of Relevant I have reviewed the following items valerie (where applicable) has been applied. Labs Laboratory Tests Test 11/13/16 10:46 11/13/16 16:59 11/13/16 20:52 11/13/16 20:59 Glucose (Fingerstick) 145 mg/dL (70-99) 167 mg/dL (70-99) 159 mg/dL (70-99) 164 mg/dL (70-99) Test 11/14/16 07:59 11/14/16 08:20 11/14/16 08:28 11/14/16 11:39 Glucose (Fingerstick) 35 mg/dL (70-99) 98 mg/dL (70-99) 108 mg/dL (70-99) Glucose Level 76 mg/dL (70-99) Test 11/14/16 16:46 11/14/16 20:50 11/15/16 03:31 11/15/16 05:57 Glucose (Fingerstick) 118 mg/dL (70-99) 188 mg/dL (70-99) 107 mg/dL (70-99) White Blood Count 6.1 x10^3/uL (4.0-11.0) Red Blood Count 3.22 x10^6/uL (4.30-5.70) Hemoglobin 8.7 g/dL (13.0-17.5) Hematocrit 27.6 % (39.0-53.0) Mean Corpuscular Volume 86 fL (79-100) Mean Corpuscular Hemoglobin 27 pg (25-35) Mean Corpuscular Hemoglobin Concent 32 g/dL (31-37) Red Cell Distribution Width 16.4 % (11.5-14.5) Platelet Count 259 x10^3/uL (140-400) Neutrophils (%) (Auto) 64 % (31-73) Lymphocytes (%) (Auto) 22 % (24-48) Monocytes (%) (Auto) 9 % (0-9) Eosinophils (%) (Auto) 5 % (0-3) Basophils (%) (Auto) 1 % (0-3) Neutrophils # (Auto) 3.9 x10^3uL (1.8-7.7) Lymphocytes # (Auto) 1.3 x10^3/uL (1.0-4.8) Monocytes # (Auto) 0.5 x10^3/uL (0.0-1.1) Eosinophils # (Auto) 0.3 x10^3/uL (0.0-0.7) Basophils # (Auto) 0.0 x10^3/uL (0.0-0.2) Erythrocyte Sedimentation Rate 72 (0-15) Sodium Level 143 mmol/L (136-145) Potassium Level 4.5 mmol/L (3.5-5.1) Chloride Level 104 mmol/L (98-107) Carbon Dioxide Level 37 mmol/L (21-32) Anion Gap 2 (6-14) Blood Urea Nitrogen 20 mg/dL (8-26) Creatinine 1.6 mg/dL (0.7-1.3) Estimated GFR (Cockcroft-Gault) 51.4 BUN/Creatinine Ratio 13 (6-20) Glucose Level 152 mg/dL (70-99) Calcium Level 8.2 mg/dL (8.5-10.1) Total Bilirubin 0.3 mg/dL (0.2-1.0) Aspartate Amino Transf (AST/SGOT) 16 U/L (15-37) Alanine Aminotransferase (ALT/SGPT) 20 U/L (16-63) Alkaline Phosphatase 65 U/L (46-116) C-Reactive Protein, Quantitative 2.0 mg/L (0-3.3) Total Protein 6.8 g/dL (6.4-8.2) Albumin 2.9 g/dL (3.4-5.0) Albumin/Globulin Ratio 0.7 (1.0-1.7) Test 11/15/16 07:34 Glucose (Fingerstick) 92 mg/dL (70-99) Laboratory Tests Test 11/14/16 11:39 11/14/16 16:46 11/14/16 20:50 11/15/16 03:31 Glucose (Fingerstick) 108 mg/dL (70-99) 118 mg/dL (70-99) 188 mg/dL (70-99) White Blood Count 6.1 x10^3/uL (4.0-11.0) Red Blood Count 3.22 x10^6/uL (4.30-5.70) Hemoglobin 8.7 g/dL (13.0-17.5) Hematocrit 27.6 % (39.0-53.0) Mean Corpuscular Volume 86 fL (79-100) Mean Corpuscular Hemoglobin 27 pg (25-35) Mean Corpuscular Hemoglobin Concent 32 g/dL (31-37) Red Cell Distribution Width 16.4 % (11.5-14.5) Platelet Count 259 x10^3/uL (140-400) Neutrophils (%) (Auto) 64 % (31-73) Lymphocytes (%) (Auto) 22 % (24-48) Monocytes (%) (Auto) 9 % (0-9) Eosinophils (%) (Auto) 5 % (0-3) Basophils (%) (Auto) 1 % (0-3) Neutrophils # (Auto) 3.9 x10^3uL (1.8-7.7) Lymphocytes # (Auto) 1.3 x10^3/uL (1.0-4.8) Monocytes # (Auto) 0.5 x10^3/uL (0.0-1.1) Eosinophils # (Auto) 0.3 x10^3/uL (0.0-0.7) Basophils # (Auto) 0.0 x10^3/uL (0.0-0.2) Erythrocyte Sedimentation Rate 72 (0-15) Sodium Level 143 mmol/L (136-145) Potassium Level 4.5 mmol/L (3.5-5.1) Chloride Level 104 mmol/L (98-107) Carbon Dioxide Level 37 mmol/L (21-32) Anion Gap 2 (6-14) Blood Urea Nitrogen 20 mg/dL (8-26) Creatinine 1.6 mg/dL (0.7-1.3) Estimated GFR (Cockcroft-Gault) 51.4 BUN/Creatinine Ratio 13 (6-20) Glucose Level 152 mg/dL (70-99) Calcium Level 8.2 mg/dL (8.5-10.1) Total Bilirubin 0.3 mg/dL (0.2-1.0) Aspartate Amino Transf (AST/SGOT) 16 U/L (15-37) Alanine Aminotransferase (ALT/SGPT) 20 U/L (16-63) Alkaline Phosphatase 65 U/L (46-116) C-Reactive Protein, Quantitative 2.0 mg/L (0-3.3) Total Protein 6.8 g/dL (6.4-8.2) Albumin 2.9 g/dL (3.4-5.0) Albumin/Globulin Ratio 0.7 (1.0-1.7) Test 11/15/16 05:57 11/15/16 07:34 Glucose (Fingerstick) 107 mg/dL (70-99) 92 mg/dL (70-99) Medications Current Medications Furosemide (Lasix) 40 mg 1X ONCE IVP Last administered on 11/11/16 15:46; Start 11/11/16 at 15:45; Stop 11/11/16 at 15:46; Status DC Azithromycin 250 ml @ 250 mls/hr 1X ONCE IV Last administered on 11/11/16 16 :31; Start 11/11/16 at 16:30; Stop 11/11/16 at 17:29; Status DC Ondansetron HCl (Zofran) 4 mg PRN Q8HRS PRN IV NAUSEA/VOMITING; Start 11/11/16 at 16:45; Stop 11/12/16 at 16:44; Status DC Amlodipine Besylate (Norvasc) 10 mg DAILY PO Last administered on 11/14/16 08: 11; Start 11/12/16 at 09:00 Atorvastatin Calcium (Lipitor) 40 mg HS PO Last administered on 11/14/16 21:14 ; Start 11/11/16 at 21:00 Clopidogrel Bisulfate (Plavix) 75 mg DAILY PO Last administered on 11/14/16 08 :11; Start 11/12/16 at 09:00 Diltiazem HCl (Cardizem 24hr Cd) 240 mg DAILY PO Last administered on 08:11; Start 11/12/16 at 09:00 Furosemide (Lasix) 40 mg DAILY PO Last administered on 11/14/16 08:12; Start 11/12/16 at 09:00 Nitroglycerin (Nitrostat) 0.4 mg PRN Q5MIN PRN SL CHEST PAIN Last administered on 11/14/16 03:23; Start 11/11/16 at 17:00 Non-Formulary Medication 2 puff BID IH ; Start 11/11/16 at 21:00; Status UNV Non-Formulary Medication 1 puff BID IH ; Start 11/11/16 at 21:00; Status UNV Insulin Detemir (Levemir) 10 units QHS SQ Last administered on 11/13/16 21:08 ; Start 11/11/16 at 21:00; Stop 11/14/16 at 08:42; Status DC Isosorbide Mononitrate (Imdur) 120 mg DAILY PO Last administered on 11/14/16 08:12; Start 11/12/16 at 09:00 Budesonide (Pulmicort) 0.5 mg RTBID NEB Last administered on 11/15/16 07:15; Start 11/11/16 at 20:00 Albuterol Sulfate (Ventolin Neb Soln) 2.5 mg RTQID NEB Last administered on 19:22; Start 11/11/16 at 20:00; Stop 11/11/16 at 21:02; Status DC Albuterol/ Ipratropium (Duoneb) 3 ml RTQID NEB Last administered on 11/12/16 07:59; Start 11/11/16 at 21:30; Stop 11/12/16 at 10:06; Status DC Azithromycin (Zithromax) 250 mg DAILY PO Last administered on 11/12/16 09:10; Start 11/12/16 at 09:00; Stop 11/12/16 at 10:57; Status DC Albuterol Sulfate (Ventolin Neb Soln) 2.5 mg PRN QID PRN NEB DYSPNEA; Start at 21:15 Albuterol/ Ipratropium (Duoneb) 3 ml Q4HRS W/A NEB Last administered on 07:15; Start 11/12/16 at 14:00 Piperacillin Sod/ Tazobactam Sod 3.375 gm/Sodium Chloride 50 ml @ 100 mls/hr Q6HRS IV Last administered on 11/15/16 05:51; Start 11/12/16 at 12:00 Polysaccharide Iron Complex (Niferex 150) 150 mg BID PO Last administered on 21:14; Start 11/12/16 at 21:00 Multi-Ingred Cream/Lotion/Oil/ Oint (Hydrocerin) 1 margie BID TP Last administered on 11/14/16 21:14; Start 11/13/16 at 21:00 Nystatin/ Triamcinolone Acetonide (Mycolog) 1 margie BID TP Last administered on 21:14; Start 11/13/16 at 21:00 Glucose (Insta-Glucose) 15 gm PRN Q15MIN PRN PO LOW BLOOD SUGAR Last administered on 11/14/16 08:06; Start 11/14/16 at 08:15 Dextrose/Sodium Chloride 1,000 ml @ 100 mls/hr 1X ONCE IV Last administered on 11/14/16 11:42; Start 11/14/16 at 08:45; Stop 11/14/16 at 18:44; Status DC Tramadol HCl (Ultram) 50 mg PRN Q6HRS PRN PO PAIN; Start 11/15/16 at 08:30 Active Scripts Active Norvasc (Amlodipine Besylate) 10 Mg Tablet 10 Mg PO DAILY 30 Days Levemir (Insulin Detemir) 100 Unit/1 Ml Vial 10 Unit SQ QHS 30 Days Lasix (Furosemide) 40 Mg Tablet 1 Tab PO DAILY Plavix (Clopidogrel Bisulfate) 75 Mg Tablet 1 Tab PO DAILY Reported Advair 100-50 Diskus (Fluticasone/Salmeterol) 1 Each Disk.w.dev 1 Puff IH BID Symbicort 160-4.5 Mcg Inhaler (Budesonide/Formoterol Fumarate) 10.2 Gm Hfa.aer.ad 2 Puff IH BID Isosorbide Mononitrate Er (Isosorbide Mononitrate) 120 Mg Tab.er.24h 120 Mg PO DAILY Diltiazem 24HR Cd (Diltiazem Hcl) 240 Mg Cap.er.24h 240 Mg PO DAILY NITROGLYCERIN SubLingual (Nitroglycerin) 0.4 Mg Tab.subl 0.4 Mg SL PRN Q5MIN PRN Atorvastatin Calcium 40 Mg Tablet 40 Mg PO HS Vitals/I & O Vital Sign - Last 24 Hours 11/14/16 11/14/16 11/14/16 11/14/16 11:00 15:00 15:57 19:00 Temp 98.0 98.7 97.5 98.0 98.7 97.5 Pulse 78 63 80 Resp 20 18 20 B/P (MAP) 147/79 (101) 143/82 (102) 144/75 (98) Pulse Ox 94 95 99 O2 Delivery Nasal Cannula Nasal Cannula Nasal Cannula Nasal Cannula O2 Flow Rate 2.0 2.0 2.0 2.0 11/14/16 11/14/16 11/14/16 11/14/16 20:00 20:15 20:15 23:00 Temp 98.6 98.6 Pulse 78 Resp 20 B/P (MAP) 130/58 (82) Pulse Ox 100 100 99 O2 Delivery Nasal Cannula Nasal Cannula Nasal Cannula Nasal Cannula O2 Flow Rate 2.0 2.0 2.0 2.0 11/15/16 11/15/16 11/15/16 03:00 07:00 07:16 Temp 98.1 98.6 98.1 98.6 Pulse 76 72 Resp 20 18 B/P (MAP) 134/57 (82) 137/86 (103) Pulse Ox 91 98 100 O2 Delivery Nasal Cannula Nasal Cannula Nasal Cannula O2 Flow Rate 2.0 2.0 2.0 Intake and Output 11/14/16 11/14/16 11/15/16 15:00 23:00 07:00 Intake Total 1140 ml 600 ml Output Total 1000 ml 500 ml Balance 140 ml 100 ml RAHUL SCHULTE MD Nov 15, 2016 09:25
[2016-11-15] MEDS: IRON POLYSACCHARIDE COMPLEX 150 MG CAPSULE PO SCH ×2 (10:48→21:23)
[2016-11-15] MEDS: FUROSEMIDE 40 MG TABLET. PO SCH (10:48)
[2016-11-15] MEDS: CLOPIDOGREL BISULFATE 75 MG TABLET PO SCH (10:48)
[2016-11-15] MEDS: amLODIPine BESYLATE 10 MG TABLET PO SCH (10:52)
[2016-11-15] MEDS: ISOSORBIDE MONONITRATE ER 30 MG TAB.ER.24H PO SCH (10:54)
[2016-11-15] MEDS: NYSTATIN/TRIAMCIN TOPICAL OINTMENT 15GM TUBE. TP SCH ×2 (10:54→21:00)
[2016-11-15] MEDS: MINERAL OIL/PETROLATUM TOPICAL CREAM 113GM JAR. TP SCH ×2 (10:54→21:23)
--- NOTE | 2016-11-15 10:54 | PDOC ---
Infectious Disease Note Subjective Subjective Comfortable, denies pain + cough Foot dressing recently changed. Pics reviewed ROS ROS GEN: Denies fevers, chills, sweats CV: Denies chest pain RESP: Denies shortness of air GI: Denies n/v/d Vital Sign Vital Signs Vital Signs Date Time Temp Pulse Resp B/P (MAP) Pulse Ox O2 Delivery O2 Flow Rate FiO2 11/15/16 07:16 100 Nasal Cannula 2.0 11/15/16 07:00 98.6 72 18 137/86 (103) 98.6 Physical Exam PHYSICAL EXAM GENERAL: Alert, NAD LUNGS: Clear HEART: S1S2 ABD: Soft, NT EXT: RLE edema. foot bandaged. [place] boots SNAP ATTACHER: Alert, oriented x 3, no focal neurologic deficit SKIN: No rash Peripheral IV Labs Lab Laboratory Tests Test 11/14/16 11:39 11/14/16 16:46 11/14/16 20:50 11/15/16 03:31 Glucose (Fingerstick) 108 mg/dL (70-99) 118 mg/dL (70-99) 188 mg/dL (70-99) White Blood Count 6.1 x10^3/uL (4.0-11.0) Red Blood Count 3.22 x10^6/uL (4.30-5.70) Hemoglobin 8.7 g/dL (13.0-17.5) Hematocrit 27.6 % (39.0-53.0) Mean Corpuscular Volume 86 fL (79-100) Mean Corpuscular Hemoglobin 27 pg (25-35) Mean Corpuscular Hemoglobin Concent 32 g/dL (31-37) Red Cell Distribution Width 16.4 % (11.5-14.5) Platelet Count 259 x10^3/uL (140-400) Neutrophils (%) (Auto) 64 % (31-73) Lymphocytes (%) (Auto) 22 % (24-48) Monocytes (%) (Auto) 9 % (0-9) Eosinophils (%) (Auto) 5 % (0-3) Basophils (%) (Auto) 1 % (0-3) Neutrophils # (Auto) 3.9 x10^3uL (1.8-7.7) Lymphocytes # (Auto) 1.3 x10^3/uL (1.0-4.8) Monocytes # (Auto) 0.5 x10^3/uL (0.0-1.1) Eosinophils # (Auto) 0.3 x10^3/uL (0.0-0.7) Basophils # (Auto) 0.0 x10^3/uL (0.0-0.2) Erythrocyte Sedimentation Rate 72 (0-15) Sodium Level 143 mmol/L (136-145) Potassium Level 4.5 mmol/L (3.5-5.1) Chloride Level 104 mmol/L (98-107) Carbon Dioxide Level 37 mmol/L (21-32) Anion Gap 2 (6-14) Blood Urea Nitrogen 20 mg/dL (8-26) Creatinine 1.6 mg/dL (0.7-1.3) Estimated GFR (Cockcroft-Gault) 51.4 BUN/Creatinine Ratio 13 (6-20) Glucose Level 152 mg/dL (70-99) Calcium Level 8.2 mg/dL (8.5-10.1) Total Bilirubin 0.3 mg/dL (0.2-1.0) Aspartate Amino Transf (AST/SGOT) 16 U/L (15-37) Alanine Aminotransferase (ALT/SGPT) 20 U/L (16-63) Alkaline Phosphatase 65 U/L (46-116) C-Reactive Protein, Quantitative 2.0 mg/L (0-3.3) Total Protein 6.8 g/dL (6.4-8.2) Albumin 2.9 g/dL (3.4-5.0) Albumin/Globulin Ratio 0.7 (1.0-1.7) Test 11/15/16 05:57 11/15/16 07:34 Glucose (Fingerstick) 107 mg/dL (70-99) 92 mg/dL (70-99) Objective Assessment Rt calcaneal wound with foul smelling discharge CHF Pleural effusion Debility COPD HTN Plan Plan of Care Zosyn,, change to po augmentin Local wound care off load overall prognosis poor Attending Co-Sign The patient was seen and interviewed as well as examined at the bedside. The chart was reviewed. The case was discussed. Agree with the plan of care. NIKOS CARPIO APRN Nov 15, 2016 10:54 ANA GIL MD Nov 15, 2016 16:06
[2016-11-15 11:00] VITALS: BP 131/87
[2016-11-15] MEDS: traMADol 50 MG TABLET PO PRN (11:09)
[2016-11-15 15:00] VITALS: BP 134/74
--- NOTE | 2016-11-15 18:56 | PDOC ---
PULMONARY PROGRESS NOTES Subjective pt with increase soa at times Vitals Vital Signs Date Time Temp Pulse Resp B/P (MAP) Pulse Ox O2 Delivery O2 Flow Rate FiO2 11/15/16 15:49 Nasal Cannula 2.0 11/15/16 15:00 99.0 64 16 134/74 (94) 99 99.0 ROS: No Nausea, No Chest Pain, No Abdominal Pain, No Increase Cough General: Alert, No acute distress HEENT: Other Lungs: Clear, Other Cardiovascular: S1, S2 Abdomen: Soft, Non-tender, Other Neuro Exam: Alert Extremities: No Edema Skin: Warm Labs Laboratory Tests Test 11/13/16 20:52 11/13/16 20:59 11/14/16 07:59 11/14/16 08:20 Glucose (Fingerstick) 159 mg/dL (70-99) 164 mg/dL (70-99) 35 mg/dL (70-99) Glucose Level 76 mg/dL (70-99) Test 11/14/16 08:28 11/14/16 11:39 11/14/16 16:46 11/14/16 20:50 Glucose (Fingerstick) 98 mg/dL (70-99) 108 mg/dL (70-99) 118 mg/dL (70-99) 188 mg/dL (70-99) Test 11/15/16 03:31 11/15/16 05:57 11/15/16 07:34 11/15/16 11:28 White Blood Count 6.1 x10^3/uL (4.0-11.0) Red Blood Count 3.22 x10^6/uL (4.30-5.70) Hemoglobin 8.7 g/dL (13.0-17.5) Hematocrit 27.6 % (39.0-53.0) Mean Corpuscular Volume 86 fL (79-100) Mean Corpuscular Hemoglobin 27 pg (25-35) Mean Corpuscular Hemoglobin Concent 32 g/dL (31-37) Red Cell Distribution Width 16.4 % (11.5-14.5) Platelet Count 259 x10^3/uL (140-400) Neutrophils (%) (Auto) 64 % (31-73) Lymphocytes (%) (Auto) 22 % (24-48) Monocytes (%) (Auto) 9 % (0-9) Eosinophils (%) (Auto) 5 % (0-3) Basophils (%) (Auto) 1 % (0-3) Neutrophils # (Auto) 3.9 x10^3uL (1.8-7.7) Lymphocytes # (Auto) 1.3 x10^3/uL (1.0-4.8) Monocytes # (Auto) 0.5 x10^3/uL (0.0-1.1) Eosinophils # (Auto) 0.3 x10^3/uL (0.0-0.7) Basophils # (Auto) 0.0 x10^3/uL (0.0-0.2) Erythrocyte Sedimentation Rate 72 (0-15) Sodium Level 143 mmol/L (136-145) Potassium Level 4.5 mmol/L (3.5-5.1) Chloride Level 104 mmol/L (98-107) Carbon Dioxide Level 37 mmol/L (21-32) Anion Gap 2 (6-14) Blood Urea Nitrogen 20 mg/dL (8-26) Creatinine 1.6 mg/dL (0.7-1.3) Estimated GFR (Cockcroft-Gault) 51.4 BUN/Creatinine Ratio 13 (6-20) Glucose Level 152 mg/dL (70-99) Calcium Level 8.2 mg/dL (8.5-10.1) Total Bilirubin 0.3 mg/dL (0.2-1.0) Aspartate Amino Transf (AST/SGOT) 16 U/L (15-37) Alanine Aminotransferase (ALT/SGPT) 20 U/L (16-63) Alkaline Phosphatase 65 U/L (46-116) C-Reactive Protein, Quantitative 2.0 mg/L (0-3.3) Total Protein 6.8 g/dL (6.4-8.2) Albumin 2.9 g/dL (3.4-5.0) Albumin/Globulin Ratio 0.7 (1.0-1.7) Glucose (Fingerstick) 107 mg/dL (70-99) 92 mg/dL (70-99) 128 mg/dL (70-99) Laboratory Tests Test 11/14/16 20:50 11/15/16 03:31 11/15/16 05:57 11/15/16 07:34 Glucose (Fingerstick) 188 mg/dL (70-99) 107 mg/dL (70-99) 92 mg/dL (70-99) White Blood Count 6.1 x10^3/uL (4.0-11.0) Red Blood Count 3.22 x10^6/uL (4.30-5.70) Hemoglobin 8.7 g/dL (13.0-17.5) Hematocrit 27.6 % (39.0-53.0) Mean Corpuscular Volume 86 fL (79-100) Mean Corpuscular Hemoglobin 27 pg (25-35) Mean Corpuscular Hemoglobin Concent 32 g/dL (31-37) Red Cell Distribution Width 16.4 % (11.5-14.5) Platelet Count 259 x10^3/uL (140-400) Neutrophils (%) (Auto) 64 % (31-73) Lymphocytes (%) (Auto) 22 % (24-48) Monocytes (%) (Auto) 9 % (0-9) Eosinophils (%) (Auto) 5 % (0-3) Basophils (%) (Auto) 1 % (0-3) Neutrophils # (Auto) 3.9 x10^3uL (1.8-7.7) Lymphocytes # (Auto) 1.3 x10^3/uL (1.0-4.8) Monocytes # (Auto) 0.5 x10^3/uL (0.0-1.1) Eosinophils # (Auto) 0.3 x10^3/uL (0.0-0.7) Basophils # (Auto) 0.0 x10^3/uL (0.0-0.2) Erythrocyte Sedimentation Rate 72 (0-15) Sodium Level 143 mmol/L (136-145) Potassium Level 4.5 mmol/L (3.5-5.1) Chloride Level 104 mmol/L (98-107) Carbon Dioxide Level 37 mmol/L (21-32) Anion Gap 2 (6-14) Blood Urea Nitrogen 20 mg/dL (8-26) Creatinine 1.6 mg/dL (0.7-1.3) Estimated GFR (Cockcroft-Gault) 51.4 BUN/Creatinine Ratio 13 (6-20) Glucose Level 152 mg/dL (70-99) Calcium Level 8.2 mg/dL (8.5-10.1) Total Bilirubin 0.3 mg/dL (0.2-1.0) Aspartate Amino Transf (AST/SGOT) 16 U/L (15-37) Alanine Aminotransferase (ALT/SGPT) 20 U/L (16-63) Alkaline Phosphatase 65 U/L (46-116) C-Reactive Protein, Quantitative 2.0 mg/L (0-3.3) Total Protein 6.8 g/dL (6.4-8.2) Albumin 2.9 g/dL (3.4-5.0) Albumin/Globulin Ratio 0.7 (1.0-1.7) Test 11/15/16 11:28 Glucose (Fingerstick) 128 mg/dL (70-99) Medications Active Scripts Medications Dose Route/Sig Max Daily Dose Days Date Category Norvasc (Amlodipine Besylate) 10 Mg Tablet 10 Mg PO DAILY 30 10/07/16 Rx Levemir (Insulin Detemir) 100 Unit/1 Ml Vial 10 Unit SQ QHS 30 10/07/16 Rx Lasix (Furosemide) 40 Mg Tablet 1 Tab PO DAILY 10/07/16 Rx Plavix (Clopidogrel Bisulfate) 75 Mg Tablet 1 Tab PO DAILY 10/07/16 Rx Advair 100-50 Diskus (Fluticasone/Salmeterol) 1 Each Disk.w.dev 1 Puff IH BID 06/21/16 Reported Symbicort 160-4.5 Mcg Inhaler (Budesonide/Formoterol Fumarate) 10.2 Gm Hfa.aer.ad 2 Puff IH BID 06/21/16 Reported Isosorbide Mononitrate Er (Isosorbide Mononitrate) 120 Mg Tab.er.24h 120 Mg PO DAILY 06/21/16 Reported Diltiazem 24HR Cd (Diltiazem Hcl) 240 Mg Cap.er.24h 240 Mg PO DAILY 11/18/15 Reported NITROGLYCERIN SubLingual (Nitroglycerin) 0.4 Mg Tab.subl 0.4 Mg SL PRN Q5MIN PRN 11/18/15 Reported Atorvastatin Calcium 40 Mg Tablet 40 Mg PO HS 11/18/15 Reported Impression . acute resp failure multifactorial aecopd abnl cxr chf Left calcaneal wound Plan . o2 titration bronchodilator abx resp status is compensated DOUGIE RIVAS MD Nov 15, 2016 18:56
[2016-11-15 19:00] VITALS: BP 138/66
[2016-11-15] MEDS: ATORVASTATIN CALCIUM 40 MG TABLET. PO SCH (21:23)
[2016-11-15] MEDS: AMOXICILLIN/K CLAV 875/125MG TABLET. PO SCH (21:23)
[2016-11-15 23:00] VITALS: BP 154/74
[2016-11-16 03:00] VITALS: BP 146/70
[2016-11-16 07:00] VITALS: BP 156/79
[2016-11-16] MEDS: MINERAL OIL/PETROLATUM TOPICAL CREAM 113GM JAR. TP SCH ×2 (08:43→20:54)
[2016-11-16] MEDS: ISOSORBIDE MONONITRATE ER 30 MG TAB.ER.24H PO SCH (08:43)
[2016-11-16] MEDS: traMADol 50 MG TABLET PO PRN (08:44)
[2016-11-16] MEDS: FUROSEMIDE 40 MG TABLET. PO SCH (08:44)
[2016-11-16] MEDS: amLODIPine BESYLATE 10 MG TABLET PO SCH (08:44)
[2016-11-16] MEDS: IRON POLYSACCHARIDE COMPLEX 150 MG CAPSULE PO SCH ×2 (08:44→20:53)
[2016-11-16] MEDS: CLOPIDOGREL BISULFATE 75 MG TABLET PO SCH (08:44)
[2016-11-16] MEDS: AMOXICILLIN/K CLAV 875/125MG TABLET. PO SCH ×2 (08:45→20:53)
[2016-11-16] MEDS: NYSTATIN/TRIAMCIN TOPICAL OINTMENT 15GM TUBE. TP SCH ×2 (08:45→20:54)
[2016-11-16] MEDS: BUDESONIDE 0.5 MG/2 ML NEBU. NEB SCH ×2 (09:00→18:23)
[2016-11-16] MEDS: IPRATRPIUM/ALBUTEROL 0.5/2.5MG 3 ML NEBU. NEB SCH ×5 (09:00→22:00)
--- NOTE | 2016-11-16 09:46 | PDOC ---
PROGRESS NOTES Subjective Subjective He feels better. Objective Objective Vital Signs Date Time Temp Pulse Resp B/P (MAP) Pulse Ox O2 Delivery O2 Flow Rate FiO2 11/16/16 09:05 97 Nasal Cannula 2.0 11/16/16 08:44 78 156/79 11/16/16 07:00 20 11/16/16 03:00 97.1 97.1 Intake and Output 11/16/16 07:00 Intake Total 960 ml Output Total 700 ml Balance 260 ml Intake Oral 960 ml Output Urine Total 700 ml # Voids 3 Physical Exam Physical Exam I saw him sitting in bed with Rooke boots on and he did walk with physical therapy with L[place]nard splints. Assessment Assessment Problems Medical Problems: (1) Dyspnea Status: Acute Plan Plan of Care Waiting for transfer to LTAC or rehab or SNF for continued wound care. Comment Review of Relevant I have reviewed the following items valerie (where applicable) has been applied. Labs Laboratory Tests Test 11/14/16 11:39 11/14/16 16:46 11/14/16 20:50 11/15/16 03:31 Glucose (Fingerstick) 108 mg/dL (70-99) 118 mg/dL (70-99) 188 mg/dL (70-99) White Blood Count 6.1 x10^3/uL (4.0-11.0) Red Blood Count 3.22 x10^6/uL (4.30-5.70) Hemoglobin 8.7 g/dL (13.0-17.5) Hematocrit 27.6 % (39.0-53.0) Mean Corpuscular Volume 86 fL (79-100) Mean Corpuscular Hemoglobin 27 pg (25-35) Mean Corpuscular Hemoglobin Concent 32 g/dL (31-37) Red Cell Distribution Width 16.4 % (11.5-14.5) Platelet Count 259 x10^3/uL (140-400) Neutrophils (%) (Auto) 64 % (31-73) Lymphocytes (%) (Auto) 22 % (24-48) Monocytes (%) (Auto) 9 % (0-9) Eosinophils (%) (Auto) 5 % (0-3) Basophils (%) (Auto) 1 % (0-3) Neutrophils # (Auto) 3.9 x10^3uL (1.8-7.7) Lymphocytes # (Auto) 1.3 x10^3/uL (1.0-4.8) Monocytes # (Auto) 0.5 x10^3/uL (0.0-1.1) Eosinophils # (Auto) 0.3 x10^3/uL (0.0-0.7) Basophils # (Auto) 0.0 x10^3/uL (0.0-0.2) Erythrocyte Sedimentation Rate 72 (0-15) Sodium Level 143 mmol/L (136-145) Potassium Level 4.5 mmol/L (3.5-5.1) Chloride Level 104 mmol/L (98-107) Carbon Dioxide Level 37 mmol/L (21-32) Anion Gap 2 (6-14) Blood Urea Nitrogen 20 mg/dL (8-26) Creatinine 1.6 mg/dL (0.7-1.3) Estimated GFR (Cockcroft-Gault) 51.4 BUN/Creatinine Ratio 13 (6-20) Glucose Level 152 mg/dL (70-99) Calcium Level 8.2 mg/dL (8.5-10.1) Total Bilirubin 0.3 mg/dL (0.2-1.0) Aspartate Amino Transf (AST/SGOT) 16 U/L (15-37) Alanine Aminotransferase (ALT/SGPT) 20 U/L (16-63) Alkaline Phosphatase 65 U/L (46-116) C-Reactive Protein, Quantitative 2.0 mg/L (0-3.3) Total Protein 6.8 g/dL (6.4-8.2) Albumin 2.9 g/dL (3.4-5.0) Albumin/Globulin Ratio 0.7 (1.0-1.7) Test 11/15/16 05:57 11/15/16 07:34 11/15/16 11:28 11/15/16 16:47 Glucose (Fingerstick) 107 mg/dL (70-99) 92 mg/dL (70-99) 128 mg/dL (70-99) 133 mg/dL (70-99) Test 11/15/16 20:48 11/16/16 06:48 Glucose (Fingerstick) 230 mg/dL (70-99) 119 mg/dL (70-99) Laboratory Tests Test 11/15/16 11:28 11/15/16 16:47 11/15/16 20:48 11/16/16 06:48 Glucose (Fingerstick) 128 mg/dL (70-99) 133 mg/dL (70-99) 230 mg/dL (70-99) 119 mg/dL (70-99) Medications Current Medications Furosemide (Lasix) 40 mg 1X ONCE IVP Last administered on 11/11/16 15:46; Start 11/11/16 at 15:45; Stop 11/11/16 at 15:46; Status DC Azithromycin 250 ml @ 250 mls/hr 1X ONCE IV Last administered on 11/11/16 16 :31; Start 11/11/16 at 16:30; Stop 11/11/16 at 17:29; Status DC Ondansetron HCl (Zofran) 4 mg PRN Q8HRS PRN IV NAUSEA/VOMITING; Start 11/11/16 at 16:45; Stop 11/12/16 at 16:44; Status DC Amlodipine Besylate (Norvasc) 10 mg DAILY PO Last administered on 11/16/16 08: 44; Start 11/12/16 at 09:00 Atorvastatin Calcium (Lipitor) 40 mg HS PO Last administered on 11/15/16 21:23 ; Start 11/11/16 at 21:00 Clopidogrel Bisulfate (Plavix) 75 mg DAILY PO Last administered on 11/16/16 08 :44; Start 11/12/16 at 09:00 Diltiazem HCl (Cardizem 24hr Cd) 240 mg DAILY PO Last administered on 08:44; Start 11/12/16 at 09:00 Furosemide (Lasix) 40 mg DAILY PO Last administered on 11/16/16 08:44; Start 11/12/16 at 09:00 Nitroglycerin (Nitrostat) 0.4 mg PRN Q5MIN PRN SL CHEST PAIN Last administered on 11/14/16 03:23; Start 11/11/16 at 17:00 Non-Formulary Medication 2 puff BID IH ; Start 11/11/16 at 21:00; Status UNV Non-Formulary Medication 1 puff BID IH ; Start 11/11/16 at 21:00; Status UNV Insulin Detemir (Levemir) 10 units QHS SQ Last administered on 11/13/16 21:08 ; Start 11/11/16 at 21:00; Stop 11/14/16 at 08:42; Status DC Isosorbide Mononitrate (Imdur) 120 mg DAILY PO Last administered on 11/16/16 08:43; Start 11/12/16 at 09:00 Budesonide (Pulmicort) 0.5 mg RTBID NEB Last administered on 11/16/16 09:00; Start 11/11/16 at 20:00 Albuterol Sulfate (Ventolin Neb Soln) 2.5 mg RTQID NEB Last administered on 19:22; Start 11/11/16 at 20:00; Stop 11/11/16 at 21:02; Status DC Albuterol/ Ipratropium (Duoneb) 3 ml RTQID NEB Last administered on 11/12/16 07:59; Start 11/11/16 at 21:30; Stop 11/12/16 at 10:06; Status DC Azithromycin (Zithromax) 250 mg DAILY PO Last administered on 11/12/16 09:10; Start 11/12/16 at 09:00; Stop 11/12/16 at 10:57; Status DC Albuterol Sulfate (Ventolin Neb Soln) 2.5 mg PRN QID PRN NEB DYSPNEA; Start at 21:15 Albuterol/ Ipratropium (Duoneb) 3 ml Q4HRS W/A NEB Last administered on 09:00; Start 11/12/16 at 14:00 Piperacillin Sod/ Tazobactam Sod 3.375 gm/Sodium Chloride 50 ml @ 100 mls/hr Q6HRS IV Last administered on 11/15/16 11:17; Start 11/12/16 at 12:00; Stop at 16:08; Status DC Polysaccharide Iron Complex (Niferex 150) 150 mg BID PO Last administered on 08:44; Start 11/12/16 at 21:00 Multi-Ingred Cream/Lotion/Oil/ Oint (Hydrocerin) 1 margie BID TP Last administered on 11/16/16 08:43; Start 11/13/16 at 21:00 Nystatin/ Triamcinolone Acetonide (Mycolog) 1 margie BID TP Last administered on 10:54; Start 11/13/16 at 21:00 Glucose (Insta-Glucose) 15 gm PRN Q15MIN PRN PO LOW BLOOD SUGAR Last administered on 11/14/16 08:06; Start 11/14/16 at 08:15 Dextrose/Sodium Chloride 1,000 ml @ 100 mls/hr 1X ONCE IV Last administered on 11/14/16 11:42; Start 11/14/16 at 08:45; Stop 11/14/16 at 18:44; Status DC Tramadol HCl (Ultram) 50 mg PRN Q6HRS PRN PO PAIN Last administered on 08:44; Start 11/15/16 at 08:30 Amoxicillin/ Clavulanate Potassium (Augmentin 875/ 125mg) 1 tab BID PO Last administered on 11/16/16 08:45; Start 11/15/16 at 21:00 Active Scripts Active Norvasc (Amlodipine Besylate) 10 Mg Tablet 10 Mg PO DAILY 30 Days Levemir (Insulin Detemir) 100 Unit/1 Ml Vial 10 Unit SQ QHS 30 Days Lasix (Furosemide) 40 Mg Tablet 1 Tab PO DAILY Plavix (Clopidogrel Bisulfate) 75 Mg Tablet 1 Tab PO DAILY Reported Advair 100-50 Diskus (Fluticasone/Salmeterol) 1 Each Disk.w.dev 1 Puff IH BID Symbicort 160-4.5 Mcg Inhaler (Budesonide/Formoterol Fumarate) 10.2 Gm Hfa.aer.ad 2 Puff IH BID Isosorbide Mononitrate Er (Isosorbide Mononitrate) 120 Mg Tab.er.24h 120 Mg PO DAILY Diltiazem 24HR Cd (Diltiazem Hcl) 240 Mg Cap.er.24h 240 Mg PO DAILY NITROGLYCERIN SubLingual (Nitroglycerin) 0.4 Mg Tab.subl 0.4 Mg SL PRN Q5MIN PRN Atorvastatin Calcium 40 Mg Tablet 40 Mg PO HS Vitals/I & O Vital Sign - Last 24 Hours 11/15/16 11/15/16 11/15/16 11/15/16 10:52 10:53 10:54 11:00 Temp 99.2 99.2 Pulse 77 77 77 77 Resp 18 B/P (MAP) 131/87 131/87 131/87 131/87 (102) Pulse Ox 99 O2 Delivery Nasal Cannula O2 Flow Rate 2.0 11/15/16 11/15/16 11/15/16 11/15/16 11:09 11:52 15:00 15:49 Temp 99.0 99.0 Pulse 64 Resp 20 16 B/P (MAP) 134/74 (94) Pulse Ox 100 99 O2 Delivery Nasal Cannula Nasal Cannula Nasal Cannula Nasal Cannula O2 Flow Rate 2.0 2.0 2.0 2.0 11/15/16 11/15/16 11/15/16 11/15/16 19:00 19:49 19:51 20:00 Temp 98.5 98.5 Pulse 67 Resp 18 B/P (MAP) 138/66 (90) Pulse Ox 96 97 97 O2 Delivery Nasal Cannula Nasal Cannula Nasal Cannula Nasal Cannula O2 Flow Rate 2.0 2.0 2.0 2.0 11/15/16 11/16/16 11/16/16 11/16/16 23:00 03:00 07:00 08:43 Temp 96.8 97.1 96.8 97.1 Pulse 77 73 78 78 Resp 19 19 20 B/P (MAP) 154/74 (100) 146/70 (95) 156/79 (104) 156/79 Pulse Ox 100 97 90 O2 Delivery Nasal Cannula Nasal Cannula Room Air O2 Flow Rate 2.0 2.0 11/16/16 11/16/16 11/16/16 11/16/16 08:44 08:44 08:44 09:01 Pulse 78 78 B/P (MAP) 156/79 156/79 Pulse Ox 97 O2 Delivery Nasal Cannula Nasal Cannula O2 Flow Rate 2.0 11/16/16 09:05 Pulse Ox 97 O2 Delivery Nasal Cannula O2 Flow Rate 2.0 Intake and Output 11/15/16 11/15/16 11/16/16 15:00 23:00 07:00 Intake Total 960 ml Output Total 700 ml Balance 260 ml RAHUL SCHULTE MD Nov 16, 2016 09:46
--- NOTE | 2016-11-16 09:55 | PDOC ---
Infectious Disease Note Subjective Subjective Comfortable, denies pain Less cough ROS ROS GEN: Denies fevers, chills, sweats CV: Denies chest pain RESP: Denies shortness of air GI: Denies n/v/d Vital Sign Vital Signs Vital Signs Date Time Temp Pulse Resp B/P (MAP) Pulse Ox O2 Delivery O2 Flow Rate FiO2 11/16/16 09:05 97 Nasal Cannula 2.0 11/16/16 08:44 78 156/79 11/16/16 07:00 20 11/16/16 03:00 97.1 97.1 Physical Exam PHYSICAL EXAM GENERAL: Alert, NAD LUNGS: Clear HEART: S1S2 ABD: Soft, NT EXT: RLE edema. right foot bandaged. Rooke boots [employer]: Alert, responds appropriately SKIN: No rash Peripheral IV Labs Lab Laboratory Tests Test 11/15/16 11:28 11/15/16 16:47 11/15/16 20:48 11/16/16 06:48 Glucose (Fingerstick) 128 mg/dL (70-99) 133 mg/dL (70-99) 230 mg/dL (70-99) 119 mg/dL (70-99) Objective Assessment Right calcaneal wound with foul smelling discharge CHF Pleural effusion Debility COPD HTN CKD Plan Plan of Care po Augmentin Local wound care off load overall prognosis poor Attending Co-Sign The patient was seen and interviewed as well as examined at the bedside. The chart was reviewed. The case was discussed. Agree with the plan of care. NIKOS CARPIO APRN Nov 16, 2016 09:55 ANA GIL MD Nov 16, 2016 14:49
--- NOTE | 2016-11-16 10:53 | PDOC ---
PROGRESS NOTES Chief Complaint Chief Complaint acute on chronic CHF, weakness, debility 1. Acute on chronic diastolic CHF, seems to be NYHA 4 2. Accelerated HTN: labile 3. Acute on chronic respiratory failure with COPD/pulmonary HTN 4. CKD 3 5. 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 weakness and debility 7. leg wound, recent foot surgery, poorly mobile - Left calcaneal wound w/ foul smelling discharge History of Present Illness History of Present Illness more active, Was sitting up and eating breakfast 'improving knee pain and leg weakness, again declines SNU, acute rehab hospital would be great PT and OT discussed cont current prognosis poor, I discussed that he may qualify for hospice, he tells me today he has never heard of this, I believe we had discussed this before. Vitals Vitals Vital Signs Date Time Temp Pulse Resp B/P (MAP) Pulse Ox O2 Delivery O2 Flow Rate FiO2 11/16/16 09:44 Nasal Cannula 2.0 11/16/16 09:05 97 11/16/16 08:44 78 156/79 11/16/16 07:00 20 11/16/16 03:00 97.1 97.1 Physical Exam General: Alert, Oriented X3, Cooperative, No acute distress Heart: Regular rate Lungs: Clear, Other Abdomen: Normal bowel sounds, Soft (some tender) Extremities: Other (+ LE edema) Skin: No rashes Labs LABS Laboratory Tests Test 11/15/16 11:28 11/15/16 16:47 11/15/16 20:48 11/16/16 06:48 Glucose (Fingerstick) 128 mg/dL (70-99) 133 mg/dL (70-99) 230 mg/dL (70-99) 119 mg/dL (70-99) Review of Systems Review of Systems eating better some ambulation Assessment and Plan Assessmemt and Plan Problems Medical Problems: (1) Dyspnea Status: Acute Problems: Comment Review of Relevant I have reviewed the following items valerie (where applicable) has been applied. Labs Laboratory Tests Test 11/14/16 11:39 11/14/16 16:46 11/14/16 20:50 11/15/16 03:31 Glucose (Fingerstick) 108 mg/dL (70-99) 118 mg/dL (70-99) 188 mg/dL (70-99) White Blood Count 6.1 x10^3/uL (4.0-11.0) Red Blood Count 3.22 x10^6/uL (4.30-5.70) Hemoglobin 8.7 g/dL (13.0-17.5) Hematocrit 27.6 % (39.0-53.0) Mean Corpuscular Volume 86 fL (79-100) Mean Corpuscular Hemoglobin 27 pg (25-35) Mean Corpuscular Hemoglobin Concent 32 g/dL (31-37) Red Cell Distribution Width 16.4 % (11.5-14.5) Platelet Count 259 x10^3/uL (140-400) Neutrophils (%) (Auto) 64 % (31-73) Lymphocytes (%) (Auto) 22 % (24-48) Monocytes (%) (Auto) 9 % (0-9) Eosinophils (%) (Auto) 5 % (0-3) Basophils (%) (Auto) 1 % (0-3) Neutrophils # (Auto) 3.9 x10^3uL (1.8-7.7) Lymphocytes # (Auto) 1.3 x10^3/uL (1.0-4.8) Monocytes # (Auto) 0.5 x10^3/uL (0.0-1.1) Eosinophils # (Auto) 0.3 x10^3/uL (0.0-0.7) Basophils # (Auto) 0.0 x10^3/uL (0.0-0.2) Erythrocyte Sedimentation Rate 72 (0-15) Sodium Level 143 mmol/L (136-145) Potassium Level 4.5 mmol/L (3.5-5.1) Chloride Level 104 mmol/L (98-107) Carbon Dioxide Level 37 mmol/L (21-32) Anion Gap 2 (6-14) Blood Urea Nitrogen 20 mg/dL (8-26) Creatinine 1.6 mg/dL (0.7-1.3) Estimated GFR (Cockcroft-Gault) 51.4 BUN/Creatinine Ratio 13 (6-20) Glucose Level 152 mg/dL (70-99) Calcium Level 8.2 mg/dL (8.5-10.1) Total Bilirubin 0.3 mg/dL (0.2-1.0) Aspartate Amino Transf (AST/SGOT) 16 U/L (15-37) Alanine Aminotransferase (ALT/SGPT) 20 U/L (16-63) Alkaline Phosphatase 65 U/L (46-116) C-Reactive Protein, Quantitative 2.0 mg/L (0-3.3) Total Protein 6.8 g/dL (6.4-8.2) Albumin 2.9 g/dL (3.4-5.0) Albumin/Globulin Ratio 0.7 (1.0-1.7) Test 11/15/16 05:57 11/15/16 07:34 11/15/16 11:28 11/15/16 16:47 Glucose (Fingerstick) 107 mg/dL (70-99) 92 mg/dL (70-99) 128 mg/dL (70-99) 133 mg/dL (70-99) Test 11/15/16 20:48 11/16/16 06:48 Glucose (Fingerstick) 230 mg/dL (70-99) 119 mg/dL (70-99) Laboratory Tests Test 11/15/16 11:28 11/15/16 16:47 11/15/16 20:48 11/16/16 06:48 Glucose (Fingerstick) 128 mg/dL (70-99) 133 mg/dL (70-99) 230 mg/dL (70-99) 119 mg/dL (70-99) Medications Current Medications Furosemide (Lasix) 40 mg 1X ONCE IVP Last administered on 11/11/16 15:46; Start 11/11/16 at 15:45; Stop 11/11/16 at 15:46; Status DC Azithromycin 250 ml @ 250 mls/hr 1X ONCE IV Last administered on 11/11/16 16 :31; Start 11/11/16 at 16:30; Stop 11/11/16 at 17:29; Status DC Ondansetron HCl (Zofran) 4 mg PRN Q8HRS PRN IV NAUSEA/VOMITING; Start 11/11/16 at 16:45; Stop 11/12/16 at 16:44; Status DC Amlodipine Besylate (Norvasc) 10 mg DAILY PO Last administered on 11/16/16 08: 44; Start 11/12/16 at 09:00 Atorvastatin Calcium (Lipitor) 40 mg HS PO Last administered on 11/15/16 21:23 ; Start 11/11/16 at 21:00 Clopidogrel Bisulfate (Plavix) 75 mg DAILY PO Last administered on 11/16/16 08 :44; Start 11/12/16 at 09:00 Diltiazem HCl (Cardizem 24hr Cd) 240 mg DAILY PO Last administered on 08:44; Start 11/12/16 at 09:00 Furosemide (Lasix) 40 mg DAILY PO Last administered on 11/16/16 08:44; Start 11/12/16 at 09:00 Nitroglycerin (Nitrostat) 0.4 mg PRN Q5MIN PRN SL CHEST PAIN Last administered on 11/14/16 03:23; Start 11/11/16 at 17:00 Non-Formulary Medication 2 puff BID IH ; Start 11/11/16 at 21:00; Status UNV Non-Formulary Medication 1 puff BID IH ; Start 11/11/16 at 21:00; Status UNV Insulin Detemir (Levemir) 10 units QHS SQ Last administered on 11/13/16 21:08 ; Start 11/11/16 at 21:00; Stop 11/14/16 at 08:42; Status DC Isosorbide Mononitrate (Imdur) 120 mg DAILY PO Last administered on 11/16/16 08:43; Start 11/12/16 at 09:00 Budesonide (Pulmicort) 0.5 mg RTBID NEB Last administered on 11/16/16 09:00; Start 11/11/16 at 20:00 Albuterol Sulfate (Ventolin Neb Soln) 2.5 mg RTQID NEB Last administered on 19:22; Start 11/11/16 at 20:00; Stop 11/11/16 at 21:02; Status DC Albuterol/ Ipratropium (Duoneb) 3 ml RTQID NEB Last administered on 11/12/16 07:59; Start 11/11/16 at 21:30; Stop 11/12/16 at 10:06; Status DC Azithromycin (Zithromax) 250 mg DAILY PO Last administered on 11/12/16 09:10; Start 11/12/16 at 09:00; Stop 11/12/16 at 10:57; Status DC Albuterol Sulfate (Ventolin Neb Soln) 2.5 mg PRN QID PRN NEB DYSPNEA; Start at 21:15 Albuterol/ Ipratropium (Duoneb) 3 ml Q4HRS W/A NEB Last administered on 09:00; Start 11/12/16 at 14:00 Piperacillin Sod/ Tazobactam Sod 3.375 gm/Sodium Chloride 50 ml @ 100 mls/hr Q6HRS IV Last administered on 11/15/16 11:17; Start 11/12/16 at 12:00; Stop at 16:08; Status DC Polysaccharide Iron Complex (Niferex 150) 150 mg BID PO Last administered on 08:44; Start 11/12/16 at 21:00 Multi-Ingred Cream/Lotion/Oil/ Oint (Hydrocerin) 1 margie BID TP Last administered on 11/16/16 08:43; Start 11/13/16 at 21:00 Nystatin/ Triamcinolone Acetonide (Mycolog) 1 margie BID TP Last administered on 10:54; Start 11/13/16 at 21:00 Glucose (Insta-Glucose) 15 gm PRN Q15MIN PRN PO LOW BLOOD SUGAR Last administered on 11/14/16 08:06; Start 11/14/16 at 08:15 Dextrose/Sodium Chloride 1,000 ml @ 100 mls/hr 1X ONCE IV Last administered on 11/14/16 11:42; Start 11/14/16 at 08:45; Stop 11/14/16 at 18:44; Status DC Tramadol HCl (Ultram) 50 mg PRN Q6HRS PRN PO PAIN Last administered on 08:44; Start 11/15/16 at 08:30 Amoxicillin/ Clavulanate Potassium (Augmentin 875/ 125mg) 1 tab BID PO Last administered on 11/16/16 08:45; Start 11/15/16 at 21:00 Active Scripts Active Norvasc (Amlodipine Besylate) 10 Mg Tablet 10 Mg PO DAILY 30 Days Levemir (Insulin Detemir) 100 Unit/1 Ml Vial 10 Unit SQ QHS 30 Days Lasix (Furosemide) 40 Mg Tablet 1 Tab PO DAILY Plavix (Clopidogrel Bisulfate) 75 Mg Tablet 1 Tab PO DAILY Reported Advair 100-50 Diskus (Fluticasone/Salmeterol) 1 Each Disk.w.dev 1 Puff IH BID Symbicort 160-4.5 Mcg Inhaler (Budesonide/Formoterol Fumarate) 10.2 Gm Hfa.aer.ad 2 Puff IH BID Isosorbide Mononitrate Er (Isosorbide Mononitrate) 120 Mg Tab.er.24h 120 Mg PO DAILY Diltiazem 24HR Cd (Diltiazem Hcl) 240 Mg Cap.er.24h 240 Mg PO DAILY NITROGLYCERIN SubLingual (Nitroglycerin) 0.4 Mg Tab.subl 0.4 Mg SL PRN Q5MIN PRN Atorvastatin Calcium 40 Mg Tablet 40 Mg PO HS Vitals/I & O Vital Sign - Last 24 Hours 11/15/16 11/15/16 11/15/16 11/15/16 10:52 10:53 10:54 11:00 Temp 99.2 99.2 Pulse 77 77 77 77 Resp 18 B/P (MAP) 131/87 131/87 131/87 131/87 (102) Pulse Ox 99 O2 Delivery Nasal Cannula O2 Flow Rate 2.0 11/15/16 11/15/16 11/15/16 11/15/16 11:09 11:52 15:00 15:49 Temp 99.0 99.0 Pulse 64 Resp 20 16 B/P (MAP) 134/74 (94) Pulse Ox 100 99 O2 Delivery Nasal Cannula Nasal Cannula Nasal Cannula Nasal Cannula O2 Flow Rate 2.0 2.0 2.0 2.0 11/15/16 11/15/16 11/15/16 11/15/16 19:00 19:49 19:51 20:00 Temp 98.5 98.5 Pulse 67 Resp 18 B/P (MAP) 138/66 (90) Pulse Ox 96 97 97 O2 Delivery Nasal Cannula Nasal Cannula Nasal Cannula Nasal Cannula O2 Flow Rate 2.0 2.0 2.0 2.0 11/15/16 11/16/16 11/16/16 11/16/16 23:00 03:00 07:00 08:43 Temp 96.8 97.1 96.8 97.1 Pulse 77 73 78 78 Resp 19 19 20 B/P (MAP) 154/74 (100) 146/70 (95) 156/79 (104) 156/79 Pulse Ox 100 97 90 O2 Delivery Nasal Cannula Nasal Cannula Room Air O2 Flow Rate 2.0 2.0 11/16/16 11/16/16 11/16/16 11/16/16 08:44 08:44 08:44 09:01 Pulse 78 78 B/P (MAP) 156/79 156/79 Pulse Ox 97 O2 Delivery Nasal Cannula Nasal Cannula O2 Flow Rate 2.0 11/16/16 11/16/16 09:05 09:44 Pulse Ox 97 O2 Delivery Nasal Cannula Nasal Cannula O2 Flow Rate 2.0 2.0 Intake and Output 11/15/16 11/15/16 11/16/16 15:00 23:00 07:00 Intake Total 960 ml Output Total 700 ml Balance 260 ml KEVIN SHARMA MD Nov 16, 2016 10:53
[2016-11-16 10:57] VITALS: BP 149/83
[2016-11-16 14:59] VITALS: BP 134/65
--- NOTE | 2016-11-16 17:14 | PDOC ---
PULMONARY PROGRESS NOTES Subjective pt with increase soa at times Vitals Vital Signs Date Time Temp Pulse Resp B/P (MAP) Pulse Ox O2 Delivery O2 Flow Rate FiO2 11/16/16 14:59 97.9 79 20 134/65 (88) 100 Nasal Cannula 2.0 97.9 ROS: No Nausea, No Chest Pain, No Abdominal Pain, No Increase Cough General: Alert, No acute distress HEENT: Other Lungs: Clear, Other Cardiovascular: S1, S2 Abdomen: Soft, Non-tender, Other Neuro Exam: Alert Extremities: No Edema Skin: Warm Labs Laboratory Tests Test 11/14/16 20:50 11/15/16 03:31 11/15/16 05:57 11/15/16 07:34 Glucose (Fingerstick) 188 mg/dL (70-99) 107 mg/dL (70-99) 92 mg/dL (70-99) White Blood Count 6.1 x10^3/uL (4.0-11.0) Red Blood Count 3.22 x10^6/uL (4.30-5.70) Hemoglobin 8.7 g/dL (13.0-17.5) Hematocrit 27.6 % (39.0-53.0) Mean Corpuscular Volume 86 fL (79-100) Mean Corpuscular Hemoglobin 27 pg (25-35) Mean Corpuscular Hemoglobin Concent 32 g/dL (31-37) Red Cell Distribution Width 16.4 % (11.5-14.5) Platelet Count 259 x10^3/uL (140-400) Neutrophils (%) (Auto) 64 % (31-73) Lymphocytes (%) (Auto) 22 % (24-48) Monocytes (%) (Auto) 9 % (0-9) Eosinophils (%) (Auto) 5 % (0-3) Basophils (%) (Auto) 1 % (0-3) Neutrophils # (Auto) 3.9 x10^3uL (1.8-7.7) Lymphocytes # (Auto) 1.3 x10^3/uL (1.0-4.8) Monocytes # (Auto) 0.5 x10^3/uL (0.0-1.1) Eosinophils # (Auto) 0.3 x10^3/uL (0.0-0.7) Basophils # (Auto) 0.0 x10^3/uL (0.0-0.2) Erythrocyte Sedimentation Rate 72 (0-15) Sodium Level 143 mmol/L (136-145) Potassium Level 4.5 mmol/L (3.5-5.1) Chloride Level 104 mmol/L (98-107) Carbon Dioxide Level 37 mmol/L (21-32) Anion Gap 2 (6-14) Blood Urea Nitrogen 20 mg/dL (8-26) Creatinine 1.6 mg/dL (0.7-1.3) Estimated GFR (Cockcroft-Gault) 51.4 BUN/Creatinine Ratio 13 (6-20) Glucose Level 152 mg/dL (70-99) Calcium Level 8.2 mg/dL (8.5-10.1) Total Bilirubin 0.3 mg/dL (0.2-1.0) Aspartate Amino Transf (AST/SGOT) 16 U/L (15-37) Alanine Aminotransferase (ALT/SGPT) 20 U/L (16-63) Alkaline Phosphatase 65 U/L (46-116) C-Reactive Protein, Quantitative 2.0 mg/L (0-3.3) Total Protein 6.8 g/dL (6.4-8.2) Albumin 2.9 g/dL (3.4-5.0) Albumin/Globulin Ratio 0.7 (1.0-1.7) Test 11/15/16 11:28 11/15/16 16:47 11/15/16 20:48 11/16/16 06:48 Glucose (Fingerstick) 128 mg/dL (70-99) 133 mg/dL (70-99) 230 mg/dL (70-99) 119 mg/dL (70-99) Test 11/16/16 10:54 11/16/16 16:49 Glucose (Fingerstick) 186 mg/dL (70-99) 157 mg/dL (70-99) Laboratory Tests Test 11/15/16 20:48 11/16/16 06:48 11/16/16 10:54 11/16/16 16:49 Glucose (Fingerstick) 230 mg/dL (70-99) 119 mg/dL (70-99) 186 mg/dL (70-99) 157 mg/dL (70-99) Medications Active Scripts Medications Dose Route/Sig Max Daily Dose Days Date Category Norvasc (Amlodipine Besylate) 10 Mg Tablet 10 Mg PO DAILY 30 10/07/16 Rx Levemir (Insulin Detemir) 100 Unit/1 Ml Vial 10 Unit SQ QHS 30 10/07/16 Rx Lasix (Furosemide) 40 Mg Tablet 1 Tab PO DAILY 10/07/16 Rx Plavix (Clopidogrel Bisulfate) 75 Mg Tablet 1 Tab PO DAILY 10/07/16 Rx Advair 100-50 Diskus (Fluticasone/Salmeterol) 1 Each Disk.w.dev 1 Puff IH BID 06/21/16 Reported Symbicort 160-4.5 Mcg Inhaler (Budesonide/Formoterol Fumarate) 10.2 Gm Hfa.aer.ad 2 Puff IH BID 06/21/16 Reported Isosorbide Mononitrate Er (Isosorbide Mononitrate) 120 Mg Tab.er.24h 120 Mg PO DAILY 06/21/16 Reported Diltiazem 24HR Cd (Diltiazem Hcl) 240 Mg Cap.er.24h 240 Mg PO DAILY 11/18/15 Reported NITROGLYCERIN SubLingual (Nitroglycerin) 0.4 Mg Tab.subl 0.4 Mg SL PRN Q5MIN PRN 11/18/15 Reported Atorvastatin Calcium 40 Mg Tablet 40 Mg PO HS 11/18/15 Reported Impression . acute resp failure multifactorial aecopd abnl cxr chf Left calcaneal wound Plan . HAD A PEER REVIEW WITH INSURANCE INPATIENT STATUS DENIED D/C HOME IN AM PT ON ORAL ANTIBX ORAL LASIX DOUGIE RIVAS MD Nov 16, 2016 17:14
[2016-11-16 19:00] VITALS: BP 132/65
[2016-11-16] MEDS: ATORVASTATIN CALCIUM 40 MG TABLET. PO SCH (20:53)
[2016-11-16 23:00] VITALS: BP 136/64
[2016-11-17 03:07] VITALS: BP 152/87
[2016-11-17 07:00] VITALS: BP 149/68
[2016-11-17] MEDS: BUDESONIDE 0.5 MG/2 ML NEBU. NEB SCH (07:08)
[2016-11-17] MEDS: IPRATRPIUM/ALBUTEROL 0.5/2.5MG 3 ML NEBU. NEB SCH ×2 (07:08→11:36)
[2016-11-17] MEDS: traMADol 50 MG TABLET PO PRN (09:17)
[2016-11-17] MEDS: FUROSEMIDE 40 MG TABLET. PO SCH (09:17)
[2016-11-17] MEDS: AMOXICILLIN/K CLAV 875/125MG TABLET. PO SCH (09:18)
[2016-11-17] MEDS: ISOSORBIDE MONONITRATE ER 30 MG TAB.ER.24H PO SCH (09:18)
[2016-11-17] MEDS: NYSTATIN/TRIAMCIN TOPICAL OINTMENT 15GM TUBE. TP SCH (09:18)
[2016-11-17] MEDS: CLOPIDOGREL BISULFATE 75 MG TABLET PO SCH (09:18)
[2016-11-17] MEDS: amLODIPine BESYLATE 10 MG TABLET PO SCH (09:18)
[2016-11-17] MEDS: MINERAL OIL/PETROLATUM TOPICAL CREAM 113GM JAR. TP SCH (09:18)
[2016-11-17] MEDS: IRON POLYSACCHARIDE COMPLEX 150 MG CAPSULE PO SCH (09:18)
[2016-11-17] MEDS ORDERED: AMOX1TAB11 PO (10:09)
--- NOTE | 2016-11-17 10:12 | PDOC ---
PROGRESS NOTES Subjective Subjective No new complaints. Objective Objective Vital Signs Date Time Temp Pulse Resp B/P (MAP) Pulse Ox O2 Delivery O2 Flow Rate FiO2 11/17/16 09:18 72 149/68 11/17/16 09:17 Nasal Cannula 11/17/16 07:10 100 2.0 11/17/16 07:00 97.7 18 97.7 Intake and Output 11/17/16 07:00 Intake Total 240 ml Output Total 650 ml Balance -410 ml Intake Oral 240 ml Output Urine Total 650 ml Physical Exam Physical Exam He is comfortable supine in bed and had Rooke boots in place.I spoke to social service and his insurance denies LTAC and rehab transfer and him and his family does not want him to go to SNF. Assessment Assessment Problems Medical Problems: (1) Dyspnea Status: Acute Plan Plan of Care Agree with plans for home with home health follow up when medically stable. Comment Review of Relevant I have reviewed the following items valerie (where applicable) has been applied. Labs Laboratory Tests Test 11/15/16 11:28 11/15/16 16:47 11/15/16 20:48 11/16/16 06:48 Glucose (Fingerstick) 128 mg/dL (70-99) 133 mg/dL (70-99) 230 mg/dL (70-99) 119 mg/dL (70-99) Test 11/16/16 10:54 11/16/16 16:49 11/16/16 20:25 11/17/16 07:04 Glucose (Fingerstick) 186 mg/dL (70-99) 157 mg/dL (70-99) 158 mg/dL (70-99) 85 mg/dL (70-99) Laboratory Tests Test 11/16/16 10:54 11/16/16 16:49 11/16/16 20:25 11/17/16 07:04 Glucose (Fingerstick) 186 mg/dL (70-99) 157 mg/dL (70-99) 158 mg/dL (70-99) 85 mg/dL (70-99) Medications Current Medications Furosemide (Lasix) 40 mg 1X ONCE IVP Last administered on 11/11/16t 15:46; Start 11/11/16 at 15:45; Stop 11/11/16 at 15:46; Status DC Azithromycin 250 ml @ 250 mls/hr 1X ONCE IV Last administered on 11/11/16 16 :31; Start 11/11/16 at 16:30; Stop 11/11/16 at 17:29; Status DC Ondansetron HCl (Zofran) 4 mg PRN Q8HRS PRN IV NAUSEA/VOMITING; Start 11/11/16 at 16:45; Stop 11/12/16 at 16:44; Status DC Amlodipine Besylate (Norvasc) 10 mg DAILY PO Last administered on 11/17/16 09: 18; Start 11/12/16 at 09:00 Atorvastatin Calcium (Lipitor) 40 mg HS PO Last administered on 11/16/16 20:53 ; Start 11/11/16 at 21:00 Clopidogrel Bisulfate (Plavix) 75 mg DAILY PO Last administered on 11/17/16 09 :18; Start 11/12/16 at 09:00 Diltiazem HCl (Cardizem 24hr Cd) 240 mg DAILY PO Last administered on 09:18; Start 11/12/16 at 09:00 Furosemide (Lasix) 40 mg DAILY PO Last administered on 11/17/16 09:17; Start 11/12/16 at 09:00 Nitroglycerin (Nitrostat) 0.4 mg PRN Q5MIN PRN SL CHEST PAIN Last administered on 11/14/16 03:23; Start 11/11/16 at 17:00 Non-Formulary Medication 2 puff BID IH ; Start 11/11/16 at 21:00; Status UNV Non-Formulary Medication 1 puff BID IH ; Start 11/11/16 at 21:00; Status UNV Insulin Detemir (Levemir) 10 units QHS SQ Last administered on 11/13/16 21:08 ; Start 11/11/16 at 21:00; Stop 11/14/16 at 08:42; Status DC Isosorbide Mononitrate (Imdur) 120 mg DAILY PO Last administered on 11/17/16 09:18; Start 11/12/16 at 09:00 Budesonide (Pulmicort) 0.5 mg RTBID NEB Last administered on 11/17/16 07:08; Start 11/11/16 at 20:00 Albuterol Sulfate (Ventolin Neb Soln) 2.5 mg RTQID NEB Last administered on 19:22; Start 11/11/16 at 20:00; Stop 11/11/16 at 21:02; Status DC Albuterol/ Ipratropium (Duoneb) 3 ml RTQID NEB Last administered on 11/12/16 07:59; Start 11/11/16 at 21:30; Stop 11/12/16 at 10:06; Status DC Azithromycin (Zithromax) 250 mg DAILY PO Last administered on 11/12/16 09:10; Start 11/12/16 at 09:00; Stop 11/12/16 at 10:57; Status DC Albuterol Sulfate (Ventolin Neb Soln) 2.5 mg PRN QID PRN NEB DYSPNEA; Start at 21:15 Albuterol/ Ipratropium (Duoneb) 3 ml Q4HRS W/A NEB Last administered on 07:08; Start 11/12/16 at 14:00 Piperacillin Sod/ Tazobactam Sod 3.375 gm/Sodium Chloride 50 ml @ 100 mls/hr Q6HRS IV Last administered on 11/15/16 11:17; Start 11/12/16 at 12:00; Stop at 16:08; Status DC Polysaccharide Iron Complex (Niferex 150) 150 mg BID PO Last administered on 09:18; Start 11/12/16 at 21:00 Multi-Ingred Cream/Lotion/Oil/ Oint (Hydrocerin) 1 margie BID TP Last administered on 11/17/16 09:18; Start 11/13/16 at 21:00 Nystatin/ Triamcinolone Acetonide (Mycolog) 1 margie BID TP Last administered on 09:18; Start 11/13/16 at 21:00 Glucose (Insta-Glucose) 15 gm PRN Q15MIN PRN PO LOW BLOOD SUGAR Last administered on 11/14/16 08:06; Start 11/14/16 at 08:15 Dextrose/Sodium Chloride 1,000 ml @ 100 mls/hr 1X ONCE IV Last administered on 11/14/16 11:42; Start 11/14/16 at 08:45; Stop 11/14/16 at 18:44; Status DC Tramadol HCl (Ultram) 50 mg PRN Q6HRS PRN PO PAIN Last administered on 09:17; Start 11/15/16 at 08:30 Amoxicillin/ Clavulanate Potassium (Augmentin 875/ 125mg) 1 tab BID PO Last administered on 11/17/16 09:18; Start 11/15/16 at 21:00 Active Scripts Active Norvasc (Amlodipine Besylate) 10 Mg Tablet 10 Mg PO DAILY 30 Days Levemir (Insulin Detemir) 100 Unit/1 Ml Vial 10 Unit SQ QHS 30 Days Lasix (Furosemide) 40 Mg Tablet 1 Tab PO DAILY Plavix (Clopidogrel Bisulfate) 75 Mg Tablet 1 Tab PO DAILY Reported Advair 100-50 Diskus (Fluticasone/Salmeterol) 1 Each Disk.w.dev 1 Puff IH BID Symbicort 160-4.5 Mcg Inhaler (Budesonide/Formoterol Fumarate) 10.2 Gm Hfa.aer.ad 2 Puff IH BID Isosorbide Mononitrate Er (Isosorbide Mononitrate) 120 Mg Tab.er.24h 120 Mg PO DAILY Diltiazem 24HR Cd (Diltiazem Hcl) 240 Mg Cap.er.24h 240 Mg PO DAILY NITROGLYCERIN SubLingual (Nitroglycerin) 0.4 Mg Tab.subl 0.4 Mg SL PRN Q5MIN PRN Atorvastatin Calcium 40 Mg Tablet 40 Mg PO HS Vitals/I & O Vital Sign - Last 24 Hours 11/16/16 11/16/16 11/16/16 11/16/16 10:57 12:03 14:59 18:24 Temp 97.9 97.9 Pulse 81 79 Resp 20 20 B/P (MAP) 149/83 (105) 134/65 (88) Pulse Ox 96 98 100 O2 Delivery Nasal Cannula Nasal Cannula Nasal Cannula Nasal Cannula O2 Flow Rate 3.0 2.0 2.0 2.0 11/16/16 11/16/16 11/16/16 11/16/16 18:25 19:00 20:00 23:00 Temp 96.9 97.3 96.9 97.3 Pulse 68 74 Resp 19 20 B/P (MAP) 132/65 (87) 136/64 (88) Pulse Ox 100 91 O2 Delivery Nasal Cannula Nasal Cannula Nasal Cannula Nasal Cannula O2 Flow Rate 2.0 2.0 2.0 11/17/16 11/17/16 11/17/16 11/17/16 03:07 07:00 07:10 09:17 Temp 96.3 97.7 96.3 97.7 Pulse 73 72 Resp 20 18 B/P (MAP) 152/87 (108) 149/68 (95) Pulse Ox 100 100 100 O2 Delivery Nasal Cannula Nasal Cannula Nasal Cannula Nasal Cannula O2 Flow Rate 2.0 2.0 11/17/16 11/17/16 11/17/16 09:18 09:18 09:18 Pulse 72 72 72 B/P (MAP) 149/68 149/68 149/68 Intake and Output 11/16/16 11/16/16 11/17/16 15:00 23:00 07:00 Intake Total 240 ml Output Total 650 ml Balance 240 ml -650 ml RAHUL SCHULTE MD Nov 17, 2016 10:12
[2016-11-17 11:00] VITALS: BP 123/69
--- NOTE | 2016-11-17 12:11 | PDOC ---
PULMONARY PROGRESS NOTES Subjective pt with increase soa at times Vitals Vital Signs Date Time Temp Pulse Resp B/P (MAP) Pulse Ox O2 Delivery O2 Flow Rate FiO2 11/17/16 11:37 Nasal Cannula 2.0 11/17/16 11:00 98.6 82 20 123/69 (87) 100 98.6 ROS: No Nausea, No Chest Pain, No Abdominal Pain, No Increase Cough General: Alert, No acute distress HEENT: Other Lungs: Clear, Other Cardiovascular: S1, S2 Abdomen: Soft, Non-tender, Other Neuro Exam: Alert Extremities: No Edema Skin: Warm Labs Laboratory Tests Test 11/15/16 16:47 11/15/16 20:48 11/16/16 06:48 11/16/16 10:54 Glucose (Fingerstick) 133 mg/dL (70-99) 230 mg/dL (70-99) 119 mg/dL (70-99) 186 mg/dL (70-99) Test 11/16/16 16:49 11/16/16 20:25 11/17/16 07:04 11/17/16 11:07 Glucose (Fingerstick) 157 mg/dL (70-99) 158 mg/dL (70-99) 85 mg/dL (70-99) 200 mg/dL (70-99) Laboratory Tests Test 11/16/16 16:49 11/16/16 20:25 11/17/16 07:04 11/17/16 11:07 Glucose (Fingerstick) 157 mg/dL (70-99) 158 mg/dL (70-99) 85 mg/dL (70-99) 200 mg/dL (70-99) Medications Active Scripts Medications Dose Route/Sig Max Daily Dose Days Date Category Norvasc (Amlodipine Besylate) 10 Mg Tablet 10 Mg PO DAILY 30 10/07/16 Rx Levemir (Insulin Detemir) 100 Unit/1 Ml Vial 10 Unit SQ QHS 30 10/07/16 Rx Lasix (Furosemide) 40 Mg Tablet 1 Tab PO DAILY 10/07/16 Rx Plavix (Clopidogrel Bisulfate) 75 Mg Tablet 1 Tab PO DAILY 10/07/16 Rx Advair 100-50 Diskus (Fluticasone/Salmeterol) 1 Each Disk.w.dev 1 Puff IH BID 06/21/16 Reported Symbicort 160-4.5 Mcg Inhaler (Budesonide/Formoterol Fumarate) 10.2 Gm Hfa.aer.ad 2 Puff IH BID 06/21/16 Reported Isosorbide Mononitrate Er (Isosorbide Mononitrate) 120 Mg Tab.er.24h 120 Mg PO DAILY 06/21/16 Reported Diltiazem 24HR Cd (Diltiazem Hcl) 240 Mg Cap.er.24h 240 Mg PO DAILY 11/18/15 Reported NITROGLYCERIN SubLingual (Nitroglycerin) 0.4 Mg Tab.subl 0.4 Mg SL PRN Q5MIN PRN 11/18/15 Reported Atorvastatin Calcium 40 Mg Tablet 40 Mg PO HS 11/18/15 Reported Impression . acute resp failure multifactorial aecopd abnl cxr chf Left calcaneal wound Plan . HAD A PEER REVIEW WITH INSURANCE INPATIENT STATUS DENIED D/C HOME IN AM PT ON ORAL ANTIBX ORAL DOUGIE ZHANG MD Nov 17, 2016 12:11
--- NOTE | 2016-11-19 11:39 | CONS ---
DATE OF CONSULTATION: 11/12/2016 CHIEF COMPLAINT: I was asked to see this 76-year-old gentleman for shortness of breath, cough, and COPD. HISTORY OF PRESENT ILLNESS: He has a history of 95-byrs-bqdn of smoking, quit smoking couple of months ago. He has had increased shortness of breath. He has cough. He discharged three days ago. He denies chest pain. He has postnasal drip. PAST MEDICAL HISTORY: Coronary artery disease, hypertension, COPD, history of PE with IVC filter in place. ALLERGIES: LISINOPRIL. MEDICATIONS: Currently, he is on albuterol, Atrovent nebulizer, Zosyn, Imdur, Lasix, Cardizem, Plavix, Norvasc, insulin, calcium, and Pulmicort. SOCIAL HISTORY: History of 40-ocpo-ohse of smoking, stopped smoking two months ago. FAMILY HISTORY: Hypertension. REVIEW OF SYSTEM: Mentioned as above, other systems otherwise negative. PHYSICIAL EXAMINATION: VITAL SIGNS: This is a well-developed gentleman, his O2 saturation is 97% on 2L of oxygen, respiratory rate 18, heart rate 77, blood pressure 162/84, and temperature 96.8. HEENT: Normocephalic, atraumatic. Pupils equal, round and reactive to light. Throat is clear. Nose is clear. NECK: Positive JVD. No lymphadenopathy. CARDIOVASCULAR: Regular rate and rhythm. PMI is not displaced. LUNGS: Bibasilar crackles, dullness at the right base. ABDOMEN: Soft, bowel sounds are good. There is no mass. EXTREMITIES: There is edema. Left calcaneal wound with foul-smelling discharge. LYMPHATIC: There lymphadenopathy. NEURO: Alert and oriented. SKIN: Warm. LABORATORY DATA: I reviewed the following lab data. Chest x-ray showed right effusion/atelectasis, increased muscular marking. WBC 5.3, hemoglobin 8.7, and platelets 235. Sodium 144, potassium 4.2, chloride 104, CO2 of 37, glucose 93, BUN 28, and creatinine 1.6. IMPRESSION: 1. Dyspnea multifactorial on etiology. 2. Abnormal chest x-ray. 3. Dlzwd-ov-rdfvogd diastolic congestive heart failure. 4. Chronic obstructive pulmonary disease. 5. Left calcaneal wound with foul-smelling discharge. 6. Hypertension. 7. 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 PLAN AND RECOMMENDATIONS: 1. Continue antibiotics per Infectious Disease. 2. Bronchodilator. 3. Inhaled corticosteroid, Pulmicort. 4. Monitor respiratory status very closely. 5. Continue Plavix. 6. He has inferior vena cava filter in place. 7. Titrate FIO2 to to keep saturation 92% 8. Continue not to smoking. 9. The findings and recommendations were discussed with the patient and RN. Thank you very much for allowing me to participate in the care of this very nice gentleman. SARAH VELASQUEZ M.D. DR: CASSIE/taylor JOB#: [id number] / [id number] LANE
== END 2016-11-17 14:36 | disposition home health service (06) | DRG 291 ==
LOC: ER 13:25 → 5 NORTH 16:05 → OBSVTOIN 16:23
PROVIDERS: ADMIT Internal Medicine; ATTEND Internal Medicine
DX: I13.0 Hypertensive heart and chronic kidney disease with heart failure and stage 1 through stage 4 chronic kidney disease, or unspecified chronic kidney disease (principal); I50.33 Acute on chronic diastolic (congestive) heart failure; J96.20 Acute and chronic respiratory failure, unspecified whether with hypoxia or hypercapnia; J18.9 Pneumonia, unspecified organism; J44.0 Chronic obstructive pulmonary disease with (acute) lower respiratory infection; J44.1 Chronic obstructive pulmonary disease with (acute) exacerbation; E11.22 Type 2 diabetes mellitus with diabetic chronic kidney disease; E11.42 Type 2 diabetes mellitus with diabetic polyneuropathy; E11.51 Type 2 diabetes mellitus with diabetic peripheral angiopathy without gangrene; E11.649 Type 2 diabetes mellitus with hypoglycemia without coma; E78.00 Pure hypercholesterolemia, unspecified; E78.5 Hyperlipidemia, unspecified; I27.2 Other secondary pulmonary hypertension; I25.10 Atherosclerotic heart disease of native coronary artery without angina pectoris; L89.619 Pressure ulcer of right heel, unspecified stage; M17.0 Bilateral primary osteoarthritis of knee; N18.3 Chronic kidney disease, stage 3 (moderate); S81.802A Unspecified open wound, left lower leg, initial encounter; W19.XXXA Unspecified fall, initial encounter; Y92.009 Unspecified place in unspecified non-institutional (private) residence as the place of occurrence of the external cause; Z82.49 Family history of ischemic heart disease and other diseases of the circulatory system; Z86.711 Personal history of pulmonary embolism; Z86.718 Personal history of other venous thrombosis and embolism; Z87.891 Personal history of nicotine dependence; Z88.8 Allergy status to other drugs, medicaments and biological substances
CPT/HCPCS: 36415; 71010; 73565; 73620; 80048; 80053; 80076; 82553; 82947; 82962; 83880; 84484; 85027; 85651; 86140; 93005; 94250; 94640; 94760; 96374; G0379; J0456; J1815; J1940; J2543; J7613; J7620; J7626; Q0144; 92526; 92610; 97110; 97116; 97530; 97535; 99285-25

== ENCOUNTER 2017-05-29 18:12 | Emergency (ER) | payer MEDICARE ==
[2017-05-29] MEDS: methylPREDNISolone SOD SUCC PF 125 MG/2 ML VIAL. IV ×2 (19:11)
[2017-05-29 19:12] LABS: INFLUENZA A PATIENT NEGATIVE (NEGATIVE); INFLUENZA B PATIENT NEGATIVE (NEGATIVE); OBC FLU VALID
[2017-05-29 19:20] LABS: ADD MAN DIFF? NO
[2017-05-29 19:25] LABS: BASO # 0.1 x10^3/uL (0.0-0.2); BASO % 1 % (0-3); EOS # 0.2 x10^3/uL (0.0-0.7); EOS % 2 % (0-3); HEMATOCRIT 29.1 % (39.0-53.0); HEMOGLOBIN 9.6 g/dL (13.0-17.5); LYMPH # 1.4 x10^3/uL (1.0-4.8); LYMPH % 15 % (24-48); MEAN CORPUSCULAR HEMOGLOBIN 29 pg (25-35); MEAN CORPUSCULAR HGB CONC 33 g/dL (31-37); MEAN CORPUSCULAR VOLUME 86 fL (79-100); MONO # 1.3 x10^3/uL (0.0-1.1); MONO % 14 % (0-9); NEUT # 6.5 x10^3uL (1.8-7.7); NEUT % 69 % (31-73); PLATELET COUNT 260 x10^3/uL (140-400); RED BLOOD COUNT 3.37 x10^6/uL (4.30-5.70); RED CELL DISTRIBUTION WIDTH 14.3 % (11.5-14.5); WHITE BLOOD COUNT 9.4 x10^3/uL (4.0-11.0)
[2017-05-29] MEDS: IPRATRPIUM/ALBUTEROL 0.5/2.5MG 3 ML NEBU. NEB ×6 (19:27→19:28)
[2017-05-29 19:35] LABS: ANION GAP 10 (6-14); BLOOD UREA NITROGEN 28 mg/dL (8-26); BUN/CREATININE RATIO 18 (6-20); CALCIUM 9.4 mg/dL (8.5-10.1); CARBON DIOXIDE 26 mmol/L (21-32); CHLORIDE 101 mmol/L (98-107); CREATININE 1.6 mg/dL (0.7-1.3); GFR 51.4; GLUCOSE 107 mg/dL (70-99); POTASSIUM 4.7 mmol/L (3.5-5.1); SODIUM 137 mmol/L (136-145)
[2017-05-29 19:40] LABS: ALBUMIN/GLOBULIN RATIO 0.6 (1.0-1.7); ALK PHOS 80 U/L (46-116); ALT (SGPT) 11 U/L (16-63); AST (SGOT) 16 U/L (15-37); TOTAL BILIRUBIN 0.2 mg/dL (0.2-1.0); TOTAL PROTEIN 7.9 g/dL (6.4-8.2)
[2017-05-29 19:42] LABS: TROPONINI < 0.017 ng/mL (0.000-0.055)
[2017-05-29 19:45] LABS: NT-PRO BNP 373 pg/mL (0-124)
[2017-05-29 19:47] LABS: LACTIC ACID 1.2 mmol/L (0.4-2.0)
== END 2017-05-29 21:45 | disposition home or self-care (01) ==
LOC: ER 18:12
DX: J44.1 Chronic obstructive pulmonary disease with (acute) exacerbation (principal); E78.00 Pure hypercholesterolemia, unspecified; E11.9 Type 2 diabetes mellitus without complications; I11.0 Hypertensive heart disease with heart failure; I50.9 Heart failure, unspecified; I25.10 Atherosclerotic heart disease of native coronary artery without angina pectoris; Z88.8 Allergy status to other drugs, medicaments and biological substances
CPT/HCPCS: 36415; 71046; 80053; 83605; 83880; 84484; 85025; 87804; 87804-59; 93005; 94640; 96374; 99285-25; J2930; J7620

== ENCOUNTER 2017-11-30 18:46 | Inpatient (IN) | payer MEDICARE ==
[2017-11-30] MEDS: ASPIRIN CHEWABLE 81 MG TABLET. PO (19:32)
[2017-11-30] MEDS: IPRATRPIUM/ALBUTEROL 0.5/2.5MG 3 ML NEBU. NEB (19:51)
[2017-11-30 19:52] LABS: ADD MAN DIFF? NO
[2017-11-30 19:54] LABS: BASO % 0 % (0-3); EOS # 0.2 x10^3/uL (0.0-0.7); EOS % 3 % (0-3); HEMATOCRIT 27.8 % (39.0-53.0); HEMOGLOBIN 9.1 g/dL (13.0-17.5); LYMPH # 1.8 x10^3/uL (1.0-4.8); LYMPH % 28 % (24-48); MEAN CORPUSCULAR HEMOGLOBIN 27 pg (25-35); MEAN CORPUSCULAR HGB CONC 33 g/dL (31-37); MEAN CORPUSCULAR VOLUME 83 fL (79-100); MONO # 0.5 x10^3/uL (0.0-1.1); MONO % 8 % (0-9); NEUT # 3.9 x10^3uL (1.8-7.7); NEUT % 60 % (31-73); PLATELET COUNT 284 x10^3/uL (140-400); RED BLOOD COUNT 3.34 x10^6/uL (4.30-5.70); RED CELL DISTRIBUTION WIDTH 14.7 % (11.5-14.5); WHITE BLOOD COUNT 6.5 x10^3/uL (4.0-11.0)
[2017-11-30 20:04] LABS: INR 1.1 (0.8-1.1); PROTHROMBIN TIME PATIENT 13.7 SEC (11.7-14.0)
[2017-11-30] MEDS: methylPREDNISolone SOD SUCC PF 125 MG/2 ML VIAL. IV (20:11)
[2017-11-30] MEDS: fentaNYL PF VIAL 100 MCG/2 ML VIAL IV (20:15)
[2017-11-30] MEDS ORDERED: ONDANSETRON PF 4 MG/2 ML VIAL. (20:16)
[2017-11-30 20:18] LABS: ANION GAP 9 (6-14); BLOOD UREA NITROGEN 23 mg/dL (8-26); BUN/CREATININE RATIO 21 (6-20); CALCIUM 8.9 mg/dL (8.5-10.1); CARBON DIOXIDE 25 mmol/L (21-32); CHLORIDE 102 mmol/L (98-107); CREATININE 1.1 mg/dL (0.7-1.3); GLUCOSE 165 mg/dL (70-99); POTASSIUM 4.7 mmol/L (3.5-5.1); SODIUM 136 mmol/L (136-145)
[2017-11-30 20:22] LABS: ALBUMIN 2.7 g/dL (3.4-5.0); ALBUMIN/GLOBULIN RATIO 0.7 (1.0-1.7); ALK PHOS 63 U/L (46-116); ALT (SGPT) 10 U/L (16-63); AST (SGOT) 11 U/L (15-37); MAGNESIUM 1.9 mg/dL (1.8-2.4); TOTAL BILIRUBIN 0.3 mg/dL (0.2-1.0); TOTAL PROTEIN 6.8 g/dL (6.4-8.2)
[2017-11-30] MEDS: ONDANSETRON PF 4 MG/2 ML VIAL. IV (20:22)
[2017-11-30 20:24] LABS: LACTIC ACID 0.9 mmol/L (0.4-2.0)
[2017-11-30 20:27] LABS: NT-PRO BNP 583 pg/mL (0-449); TROPONINI < 0.017 ng/mL (0.000-0.055)
[2017-11-30 20:40] LABS: LIPASE 64 U/L (73-393)
[2017-11-30] MEDS ORDERED: guaiFENesin DM 200MG/20MG 10 ML SYRUP PO (22:45)
[2017-11-30] MEDS ORDERED: BENZOCAINE/MENTHOL LOZENGE. PO (22:45)
[2017-11-30] MEDS: AZITHROMYCIN 250 MG TABLET. PO (23:48)
[2017-12-01] MEDS ORDERED: PNEUMOCOCCAL VAX SCREEN BY RX. MC (01:00)
[2017-12-01 01:18] LABS: TROPONINI < 0.017 ng/mL (0.000-0.055)
[2017-12-01 04:35] LABS: TROPONINI < 0.017 ng/mL (0.000-0.055)
[2017-12-01] MEDS: IPRATRPIUM/ALBUTEROL 0.5/2.5MG 3 ML NEBU. NEB ×5 (07:10→19:46)
[2017-12-01] MEDS: BUDESONIDE 0.5 MG/2 ML NEBU. NEB ×2 (07:10→19:47)
[2017-12-01] MEDS: AZITHROMYCIN 250 MG TABLET. PO (08:02)
[2017-12-01 08:23] LABS: POC GLUCOSE 236 mg/dL (70-99)
[2017-12-01] MEDS ORDERED: DEXTROSE 50% 25 GM / 50ML DISP.SYRIN. IV (08:30)
[2017-12-01] MEDS ORDERED: NITROGLYCERIN SUBLINGUAL 0.4 MG BOTTLE OF 25. SL (10:15)
[2017-12-01] MEDS: CLOPIDOGREL BISULFATE 75 MG TABLET PO (10:40)
[2017-12-01] MEDS: ISOSORBIDE MONONITRATE ER 30 MG TAB.ER.24H PO (10:40)
[2017-12-01] MEDS: amLODIPine BESYLATE 10 MG TABLET PO (10:40)
[2017-12-01] MEDS: FUROSEMIDE 40 MG TABLET. PO (10:40)
[2017-12-01] MEDS: ASPIRIN CHEWABLE 81 MG TABLET. PO (10:40)
[2017-12-01] MEDS: POTASSIUM CHLORIDE 10 MEQ TABLET.ER. PO (10:40)
[2017-12-01] MEDS: INSULIN GLARGINE 300 UNITS/3 ML INSULN.PEN. SQ ×2 (10:44→20:48)
[2017-12-01 12:12] LABS: POC GLUCOSE 297 mg/dL (70-99)
[2017-12-01] MEDS: INSULIN LISPRO 300 UNITS/3 ML INSULN.PEN. SQ ×4 (12:16→17:00)
[2017-12-01] MEDS: IOHEXOL 300 MG/ML 100ML VIAL. IV (15:45)
[2017-12-01] MEDS ORDERED: CONTRAST GIVEN. MC (15:45)
[2017-12-01 17:14] LABS: POC GLUCOSE 102 mg/dL (70-99)
[2017-12-01] MEDS: ATORVASTATIN CALCIUM 40 MG TABLET. PO (20:45)
[2017-12-01] MEDS: LACTOBACILLUS RHAMNOSUS GG 1 CAPSULE. PO (20:45)
[2017-12-01 20:53] LABS: POC GLUCOSE 236 mg/dL (70-99)
[2017-12-02] MEDS: IPRATRPIUM/ALBUTEROL 0.5/2.5MG 3 ML NEBU. NEB ×3 (06:00→10:54)
[2017-12-02] MEDS: BUDESONIDE 0.5 MG/2 ML NEBU. NEB (07:11)
[2017-12-02 07:22] LABS: ADD MAN DIFF? NO
[2017-12-02 07:27] LABS: BASO % 0 % (0-3); EOS % 1 % (0-3); HEMATOCRIT 28.6 % (39.0-53.0); HEMOGLOBIN 9.6 g/dL (13.0-17.5); LYMPH # 1.6 x10^3/uL (1.0-4.8); LYMPH % 20 % (24-48); MEAN CORPUSCULAR HEMOGLOBIN 28 pg (25-35); MEAN CORPUSCULAR HGB CONC 34 g/dL (31-37); MEAN CORPUSCULAR VOLUME 83 fL (79-100); MONO # 0.6 x10^3/uL (0.0-1.1); MONO % 8 % (0-9); NEUT # 5.7 x10^3uL (1.8-7.7); NEUT % 72 % (31-73); PLATELET COUNT 281 x10^3/uL (140-400); RED BLOOD COUNT 3.45 x10^6/uL (4.30-5.70); RED CELL DISTRIBUTION WIDTH 14.9 % (11.5-14.5); WHITE BLOOD COUNT 7.9 x10^3/uL (4.0-11.0)
[2017-12-02 07:49] LABS: ALBUMIN 2.7 g/dL (3.4-5.0); ALBUMIN/GLOBULIN RATIO 0.7 (1.0-1.7); ALK PHOS 65 U/L (46-116); ALT (SGPT) 10 U/L (16-63); ANION GAP 8 (6-14); AST (SGOT) 10 U/L (15-37); BLOOD UREA NITROGEN 27 mg/dL (8-26); BUN/CREATININE RATIO 23 (6-20); CALCIUM 8.7 mg/dL (8.5-10.1); CARBON DIOXIDE 26 mmol/L (21-32); CHLORIDE 105 mmol/L (98-107); CREATININE 1.2 mg/dL (0.7-1.3); GFR 71.4; GLUCOSE 52 mg/dL (70-99); POTASSIUM 4.1 mmol/L (3.5-5.1); SODIUM 139 mmol/L (136-145); TOTAL BILIRUBIN 0.1 mg/dL (0.2-1.0); TOTAL PROTEIN 6.6 g/dL (6.4-8.2)
[2017-12-02 07:56] LABS: POC GLUCOSE 49 mg/dL (70-99)
[2017-12-02] MEDS: INSULIN LISPRO 300 UNITS/3 ML INSULN.PEN. SQ ×4 (08:00→12:13)
[2017-12-02 08:04] LABS: % SAT IRON 16 % (15-34); IRON,SERUM 40 ug/dL (65-175)
[2017-12-02] MEDS: INSULIN GLARGINE 300 UNITS/3 ML INSULN.PEN. SQ (08:05)
[2017-12-02] MEDS: amLODIPine BESYLATE 10 MG TABLET PO (08:16)
[2017-12-02] MEDS: FUROSEMIDE 40 MG TABLET. PO (08:17)
[2017-12-02] MEDS: ISOSORBIDE MONONITRATE ER 30 MG TAB.ER.24H PO (08:17)
[2017-12-02] MEDS: ASPIRIN CHEWABLE 81 MG TABLET. PO (08:17)
[2017-12-02] MEDS: AZITHROMYCIN 250 MG TABLET. PO (08:17)
[2017-12-02] MEDS: LACTOBACILLUS RHAMNOSUS GG 1 CAPSULE. PO (08:17)
[2017-12-02] MEDS: POTASSIUM CHLORIDE 10 MEQ TABLET.ER. PO (08:17)
[2017-12-02] MEDS: CLOPIDOGREL BISULFATE 75 MG TABLET PO (08:17)
[2017-12-02 08:42] LABS: POC GLUCOSE 140 mg/dL (70-99)
[2017-12-02 12:00] LABS: POC GLUCOSE 171 mg/dL (70-99)
[2017-12-02 12:15] LABS: VITAMIN-B12 197 pg/mL (247-911)
== END 2017-12-02 14:10 | disposition home or self-care (01) | DRG 190 ==
LOC: ER 18:46 → 6 SOUTH 19:45
DX: J44.1 Chronic obstructive pulmonary disease with (acute) exacerbation (principal); J96.20 Acute and chronic respiratory failure, unspecified whether with hypoxia or hypercapnia; I50.32 Chronic diastolic (congestive) heart failure; I13.0 Hypertensive heart and chronic kidney disease with heart failure and stage 1 through stage 4 chronic kidney disease, or unspecified chronic kidney disease; N39.0 Urinary tract infection, site not specified; J44.0 Chronic obstructive pulmonary disease with (acute) lower respiratory infection; J20.9 Acute bronchitis, unspecified; I25.10 Atherosclerotic heart disease of native coronary artery without angina pectoris; N18.2 Chronic kidney disease, stage 2 (mild); E78.00 Pure hypercholesterolemia, unspecified; E11.22 Type 2 diabetes mellitus with diabetic chronic kidney disease; N41.9 Inflammatory disease of prostate, unspecified; I25.2 Old myocardial infarction; Z86.711 Personal history of pulmonary embolism; M19.90 Unspecified osteoarthritis, unspecified site; F17.210 Nicotine dependence, cigarettes, uncomplicated; Z86.74 Personal history of sudden cardiac arrest; E78.5 Hyperlipidemia, unspecified; I72.3 Aneurysm of iliac artery; I27.20 Pulmonary hypertension, unspecified; Z86.718 Personal history of other venous thrombosis and embolism; Z79.4 Long term (current) use of insulin
CPT/HCPCS: 36415; 71045; 71275; 80053; 82607; 82962; 83540; 83550; 83605; 83690; 83735; 83880; 84484; 85025; 85610; 87040; 93005; 93306; 94640; 94760; 96365; 96375; 99285-25; J1815; J1956; J2405; J2930; J7620; J7626; Q0144; Q9967

== ENCOUNTER 2018-02-06 15:34 | Emergency (ER) | payer MEDICARE ==
[~2018-02-06] VITALS: Ht 188 cm; Wt 81.6 kg
[~2018-02-06 15:34] MED LIST changes: +AMLO10TA6 PO; +AMOX1TAB11 PO; +ASPI-630 PO; +AZIT250T PO; +AZIT250T6 PO; +DOXY100T PO; +INSU100I11 SQ; +INSU100I13 SQ; +METF500T16 PO; -METF500T4 PO; +POTA10TA12 PO; +PRED50TA PO; -PROM118S2 PO; +PROM118S5 PO
--- NOTE | 2018-02-06 16:43 | RAD ---
EXAM: CHEST 1 VIEW History: Shortness of breath, chest pain COMPARISON: 11/30/2017 TECHNIQUE: Single portable radiograph of the chest FINDINGS: Low lung volumes and technique accentuates heart size and pulmonary vascularity. Airspace opacity identified in the right lung base likely scarring or small pleural effusion is unchanged. Minimal prominent bilateral interstitial lung markings likely chronic interstitial changes. IMPRESSION: 1. Unchanged probable small right pleural effusion or scarring. 2. Minimal prominent appearing bilateral interstitial lung markings likely chronic interstitial changes. Electronically signed by: Maco Purdy MD (02/06/2018 4:39 PM) [id number]
[2018-02-06] MEDS ORDERED: ALBUTEROL SULFATE 2.5 MG/3 ML NEBU. CONT NEB ONE (16:45)
[2018-02-06] MEDS ORDERED: IPRATROPIUM BROMIDE 0.5 MG/2.5 ML NEBU. NEB ONE (16:45)
[2018-02-06 17:14] LABS: BASO % 1 % (0-3); EOS # 0.2 x10^3/uL (0.0-0.7); EOS % 3 % (0-3); HEMATOCRIT 31.6 % (39.0-53.0); HEMOGLOBIN 10.3 g/dL (13.0-17.5); LYMPH # 1.2 x10^3/uL (1.0-4.8); LYMPH % 26 % (24-48); MEAN CORPUSCULAR HEMOGLOBIN 27 pg (25-35); MEAN CORPUSCULAR HGB CONC 33 g/dL (31-37); MEAN CORPUSCULAR VOLUME 84 fL (79-100); MONO # 0.5 x10^3/uL (0.0-1.1); MONO % 10 % (0-9); NEUT # 2.9 x10^3uL (1.8-7.7); NEUT % 61 % (31-73); PLATELET COUNT 247 x10^3/uL (140-400); RED BLOOD COUNT 3.76 x10^6/uL (4.30-5.70); RED CELL DISTRIBUTION WIDTH 15.3 % (11.5-14.5); WHITE BLOOD COUNT 4.8 x10^3/uL (4.0-11.0)
--- NOTE | 2018-02-06 17:16 | EKG ---
[facility] [address] [place] [address] Test Date: 2018-02-06 Test Time: 15:43:21 Pat Name: BRONSON TAI Department: Room: Gender: M Telephone Solicitor: : 1940 Requested By: ANNELISE CAMARGO Order Number: [id number] Reading MD: New Lawson Measurements Intervals [place] Rate: 71 P: [place]: QRS: 44 QRSD: 102 T: 53 QT: 422 QTc: 463 Interpretive Statements SINUS RHYTHM Electronically Signed On 02-07-2018 11:44:24 CDT by New Lawson
[2018-02-06 17:18] LABS: CALCIUM 8.6 mg/dL (8.5-10.1); CREATININE 1.2 mg/dL (0.7-1.3); GFR 71.4
[2018-02-06 17:24] LABS: ALBUMIN/GLOBULIN RATIO 0.8 (1.0-1.7); TOTAL BILIRUBIN 0.1 mg/dL (0.2-1.0); TOTAL PROTEIN 6.6 g/dL (6.4-8.2)
[2018-02-06] MEDS ORDERED: FUROSEMIDE 20 MG/2 ML VIAL. IVP ONE (19:00)
[2018-02-06] MEDS ORDERED: IOHEXOL 300 MG/ML 100ML VIAL. IV ONE (19:15)
[2018-02-06] MEDS ORDERED: CONTRAST GIVEN. MC PRN (19:15)
[2018-02-06 21:12] VITALS: BP 179/70
[2018-02-06] MEDS ORDERED: CEPH-264 PO (21:13)
--- NOTE | 2018-02-06 21:24 | PHYS DOC ---
Past Medical History Past Medical History: Asthma, CAD, COPD, Diabetes-Type II, High Cholesterol, Hypertension, [place], Prostatitis Past Surgical History: Other Additional Past Surgical Histo: Left lower lobectomy; right leg Additional Information: < 0.5 PPD Alcohol Use: Heavy Drug Use: None Adult General Chief Complaint Chief Complaint: CHEST PAIN HPI HPI Patient is a 77 year old female with history of COPD, COPD who presents with nonproductive cough the past 3 days and anterior chest wall pain worse with coughing only. Denies fever chills, nausea vomiting and sweats. Does report wheezing. Denies increased fluid retention or weight. No abdominal pain, no nausea vomiting, no diarrhea. No sweats. No recent antibiotic use. Patient is compliant with home medication and is been using his albuterol inhaler twice daily. Patient has not been evaluated for these current symptoms.[ ] Review of Systems Review of Systems ROS as per HPI. Current Medications Current Medications Current Medications Medications (Trade) Dose Ordered Sig/Ann Marie Start Time Stop Time Status Last Admin Dose Admin Albuterol Sulfate (Ventolin Neb Soln) 10 mg 1X ONCE 02/06/18 16:45 02/06/18 16:46 DC 02/06/18 17:09 10 MG Furosemide (Lasix) 40 mg 1X ONCE 02/06/18 19:00 02/06/18 19:01 DC 02/06/18 19:08 40 MG Info (CONTRAST GIVEN -- Rx MONITORING) 1 each PRN DAILY PRN 02/06/18 19:15 02/08/18 19:14 Iohexol (Omnipaque 300 Mg/ml) 75 ml 1X ONCE 02/06/18 19:15 02/06/18 19:16 DC Ipratropium [place] (Atrovent) 1 mg 1X ONCE 02/06/18 16:45 02/06/18 16:46 DC 02/06/18 17:08 1 MG Allergies Allergies Allergies Coded Allergies Type Severity Reaction Last Updated Verified lisinopril Allergy Severe Anaphylaxis 09/30/16 Yes Physical Exam Physical Exam Constitutional: Well developed, well nourished, no acute distress, non-toxic appearance. [] HENT: Normocephalic, atraumatic, bilateral external ears normal, oropharynx moist, no oral exudates, nose normal. [] Eyes: PERRLA, EOMI, conjunctiva normal, no discharge. [] Neck: Normal range of motion, no tenderness, supple, no stridor. [] Cardiovascular:Heart rate regular rhythm, trace peripheral edema, negative Homans signs. [] Lungs & Thorax: Patient's nonlabored, coarse breath sounds bilaterally, occasional expiratory wheeze,[] Abdomen: Bowel sounds normal, soft, no tenderness. [] Skin: Warm, dry, no erythema, no rash. [] Back: No tenderness, no CVA tenderness. [] Extremities: No tenderness. [] Neurologic: Alert and oriented X 3, normal motor function, normal sensory function, no focal deficits noted. [] Psychologic: Affect normal, judgement normal, mood normal. [] Current Patient Data Vital Signs Vital Signs Date Time Temp Pulse Resp B/P (MAP) Pulse Ox O2 Delivery O2 Flow Rate FiO2 02/06/18 19:40 66 178/74 (108) Room Air 02/06/18 19:10 25 02/06/18 18:40 94 02/06/18 15:34 98.0 98.0 Lab Values Laboratory Tests Test 02/06/18 17:00 White Blood Count 4.8 x10^3/uL (4.0-11.0) Red Blood Count 3.76 x10^6/uL (4.30-5.70) L Hemoglobin 10.3 g/dL (13.0-17.5) L Hematocrit 31.6 % (39.0-53.0) L Mean Corpuscular Volume 84 fL (79-100) Mean Corpuscular Hemoglobin 27 pg (25-35) Mean Corpuscular Hemoglobin Concent 33 g/dL (31-37) Red Cell Distribution Width 15.3 % (11.5-14.5) H Platelet Count 247 x10^3/uL (140-400) Neutrophils (%) (Auto) 61 % (31-73) Lymphocytes (%) (Auto) 26 % (24-48) Monocytes (%) (Auto) 10 % (0-9) H Eosinophils (%) (Auto) 3 % (0-3) Basophils (%) (Auto) 1 % (0-3) Neutrophils # (Auto) 2.9 x10^3uL (1.8-7.7) Lymphocytes # (Auto) 1.2 x10^3/uL (1.0-4.8) Monocytes # (Auto) 0.5 x10^3/uL (0.0-1.1) Eosinophils # (Auto) 0.2 x10^3/uL (0.0-0.7) Basophils # (Auto) 0.0 x10^3/uL (0.0-0.2) D-Dimer (Lizbeth) 1.19 ug/mlFEU (0.00-0.50) H Sodium Level 144 mmol/L (136-145) Potassium Level 4.0 mmol/L (3.5-5.1) Chloride Level 107 mmol/L (98-107) Carbon Dioxide Level 29 mmol/L (21-32) Anion Gap 8 (6-14) Blood Urea Nitrogen 23 mg/dL (8-26) Creatinine 1.2 mg/dL (0.7-1.3) Estimated GFR (Cockcroft-Gault) 71.4 BUN/Creatinine Ratio 19 (6-20) Glucose Level 100 mg/dL (70-99) H Calcium Level 8.6 mg/dL (8.5-10.1) Total Bilirubin 0.1 mg/dL (0.2-1.0) L Aspartate Amino Transferase (AST) 9 U/L (15-37) L Alanine Aminotransferase (ALT) 12 U/L (16-63) L Alkaline Phosphatase 80 U/L (46-116) Troponin I Quantitative < 0.017 ng/mL (0.000-0.055) UI-Vmc-Y-Type Natriuretic Peptide 544 pg/mL (0-449) H Total Protein 6.6 g/dL (6.4-8.2) Albumin 3.0 g/dL (3.4-5.0) L Albumin/Globulin Ratio 0.8 (1.0-1.7) L Laboratory Tests 02/06/18 17:00 Laboratory Tests 02/06/18 17:00 EKG EKG [EKG] Radiology/Procedures Radiology/Procedures [Chest x-ray/CTA chest: No evidence of PE or acute cardiopulmonary disease per radiology report] Course & Med Decision Making Course & Med Decision Making Pertinent Labs and Imaging studies reviewed. (See chart for details) [Patient with shortness of breath as symptoms most consistent with combined COPD /CHF exacerbation with secondary chest wall pain. Troponin, EKG nonacute. D- dimer is positive, CTA negative. Patient given hour-long breathing treatment and diuretic in the emergency department with resolution of pulmonary symptoms and chest wall pain. Will discharge home and continue supportive care. She'll waiting and close PCP follow up recommended. Patient verbalizes understanding and agreement discharge instructions prior to discharge.] Dragon Disclaimer Dragon Disclaimer This electronic medical record was generated, in whole or in part, using a voice recognition dictation system. Departure Departure Impression: Primary Impression: Congestive heart failure Additional Impressions: Chest wall pain COPD with acute exacerbation Disposition: HOME, SELF-CARE Condition: IMPROVED Patient Instructions: Chest Wall Pain, Puzw-gj-Amrq, Chronic Obstructive Pulmonary Disease Exacerbation, Fehm-xc-Oizo, Heart Failure, Ahuj-et-Vagi Additional Instructions: Continue home medications including diuretic home and inhaler use. Take antibiotics as directed and follow-up with your PCP in 1-2 days for reevaluation. Return to the ED if you develop new or worsening symptoms. Scripts Cephalexin (KEFLEX) 500 Mg Capsule 1 CAP PO TID, #21 CAP Prov: ANNELISE CAMARGO DO 02/06/18 Problem Qualifiers ANNELISE CAMARGO DO Feb 06, 2018 21:24
[2018-02-07] MEDS ORDERED: DOXY100C2 PO (13:49)
[2018-02-07] MEDS ORDERED: PRED50TA PO (13:49)
== END 2018-02-06 21:46 | disposition home or self-care (01) ==
LOC: ER 15:36
DX: I11.0 Hypertensive heart disease with heart failure (principal); I50.9 Heart failure, unspecified; R07.89 Other chest pain; J44.1 Chronic obstructive pulmonary disease with (acute) exacerbation; I25.10 Atherosclerotic heart disease of native coronary artery without angina pectoris; E11.9 Type 2 diabetes mellitus without complications; E78.00 Pure hypercholesterolemia, unspecified; I25.2 Old myocardial infarction; Z88.8 Allergy status to other drugs, medicaments and biological substances
CPT/HCPCS: 36415; 71045; 80053; 83880; 84484; 85025; 85379; 93005; 94644; 96374; 99285; J1940; J7613; J7644

== ENCOUNTER 2018-02-07 09:22 | Emergency (ER) | payer MEDICARE ==
[~2018-02-07] VITALS: Ht 188 cm; Wt 81.6 kg
[~2018-02-07 09:22] MED LIST changes: +CEPH-264 PO
[2018-02-07] MEDS ORDERED: IOHEXOL 300 MG/ML 100ML VIAL. IV ONE (09:45)
[2018-02-07] MEDS ORDERED: CONTRAST GIVEN. MC PRN (09:45)
[2018-02-07] MEDS ORDERED: IPRATRPIUM/ALBUTEROL 0.5/2.5MG 3 ML NEBU. NEB ONE (10:00)
--- NOTE | 2018-02-07 13:21 | RAD ---
VQ Scan: Clinical History: Chest pain, history of pulmonary embolism, DVT. Technique: 30.8 mCi of Tc 99m DTPA was administered as an aerosol and spot views were obtained on a gamma camera for a Nuclear Medicine ventilation examination. 5.4 mCi of Tc 99m MAA was administered intravenously and spot views were obtained on the gamma camera for a Nuclear Medicine perfusion examination. Static images were reviewed as a V/Q scan in order to exclude pulmonary embolism. Findings: There is retention of radiotracer in the bilateral lungs on the washout phase images on the ventilation likely due to airway disease. Matched nonsegmental perfusion defects identified in the bilateral lungs. There is decreased diffuse perfusion in the right lung compared to the left lung similar to the ventilation images. IMPRESSION: 1. Low probability for pulmonary embolism. 2. Retention of the ventilation radiotracer on the washout phase images in the lungs likely due to airway disease. Electronically signed by: Maco Purdy MD (02/07/2018 1:17 PM) [id number]
[2018-02-07 13:42] VITALS: BP 149/88
[2018-02-07] MEDS ORDERED: DOXY100C2 PO (13:49)
[2018-02-07] MEDS ORDERED: PRED50TA PO (13:49)
--- NOTE | 2018-02-07 16:35 | PHYS DOC ---
Past Medical History Past Medical History: Asthma, CAD, COPD, Diabetes-Type II, High Cholesterol, Hypertension, [place], Prostatitis Past Surgical History: Other Additional Past Surgical Histo: Left lower lobectomy; right leg Additional Information: < 0.5 PPD Alcohol Use: Heavy Drug Use: None Adult General Chief Complaint Chief Complaint: SHORTNESS OF BREATH HPI HPI Patient is a 77 year old m p/w called back for ct scan. pt has been sob thought due to copd, mild to modrate improved with nebs in er last night but ddimer was elevated so called back fro ct scan. pt has been feeling better since leaving er last night Current Medications Current Medications Current Medications Medications (Trade) Dose Ordered Sig/Ann Marie Start Time Stop Time Status Last Admin Dose Admin Albuterol/ Ipratropium (Duoneb) 3 ml 1X ONCE 02/07/18 10:00 02/07/18 10:01 DC 02/07/18 10:27 3 ML Info (CONTRAST GIVEN -- Rx MONITORING) 1 each PRN DAILY PRN 02/07/18 09:45 02/07/18 14:05 DC Iohexol (Omnipaque 300 Mg/ml) 75 ml 1X ONCE 02/07/18 09:45 02/07/18 09:46 DC Allergies Allergies Allergies Coded Allergies Type Severity Reaction Last Updated Verified lisinopril Allergy Severe Anaphylaxis 09/30/16 Yes Physical Exam Physical Exam Constitutional: Well developed, well nourished, no acute distress, non-toxic appearance. [] HENT: Normocephalic, atraumatic, bilateral external ears normal, oropharynx moist, no oral exudates, nose normal. [] Eyes: PERRLA, EOMI, conjunctiva normal, no discharge. [] Neck: Normal range of motion, no tenderness, supple, no stridor. [] Cardiovascular:Heart rate regular rhythm, no murmur [] Lungs & Thorax: faint wheezing noted Abdomen: Bowel sounds normal, soft, no tenderness, no masses, no pulsatile masses. [] Skin: Warm, dry, no erythema, no rash. [] Back: No tenderness, no CVA tenderness. [] Psychologic: Affect normal, judgement normal, mood normal. [] Current Patient Data Vital Signs Vital Signs Date Time Temp Pulse Resp B/P (MAP) Pulse Ox O2 Delivery O2 Flow Rate FiO2 02/07/18 13:42 71 19 149/88 (108) 95 Room Air 02/07/18 09:37 98.2 98.2 EKG EKG [] Radiology/Procedures Radiology/Procedures [] Impressions: v IMPRESSION: 1. Low probability for pulmonary embolism. 2. Retention of the ventilation radiotracer on the washout phase images in the lungs likely due to airway disease. Electronically signed by: Maco Purdy MD (02/07/2018 1:17 PM) [id number] Course & Med Decision Making Course & Med Decision Making Pertinent Labs and Imaging studies reviewed. (See chart for details) 77 yo m p/w called back fro r/o pe study apparently had elevated ddimer the cta was not done in er last night today hard stick v/q scan low prob given copd exacerbation rx. pt agreale. Dragon Disclaimer Dragon Disclaimer This electronic medical record was generated, in whole or in part, using a voice recognition dictation system. Departure Departure Impression: Primary Impression: COPD (chronic obstructive pulmonary disease) Disposition: 01 HOME, SELF-CARE Condition: STABLE Referrals: ELO OLIVER APRN (PCP) Patient Instructions: Chronic Obstructive Pulmonary Disease Exacerbation Scripts Doxycycline Hyclate (DOXYCYCLINE HYCLATE) 100 Mg Capsule 1 CAP PO BID, #14 CAP Prov: ADEEL HOWELL MD 02/07/18 Prednisone (PREDNISONE) 50 Mg Tablet 1 TAB PO DAILY, #5 TAB Prov: ADEEL HOWELL MD 02/07/18 ADEEL HOWELL MD Feb 07, 2018 16:35
== END 2018-02-07 14:01 | disposition home or self-care (01) ==
LOC: ER 09:22
DX: J44.9 Chronic obstructive pulmonary disease, unspecified (principal); E11.9 Type 2 diabetes mellitus without complications; E78.00 Pure hypercholesterolemia, unspecified; I10 Essential (primary) hypertension; I25.2 Old myocardial infarction; Z88.8 Allergy status to other drugs, medicaments and biological substances
CPT/HCPCS: 78582; 94640; 96374; 99283; A9540; A9558; J7620

== ENCOUNTER 2018-05-29 12:38 | Emergency (ER) | payer MEDICARE ==
[~2018-05-29] VITALS: Ht 188 cm; Wt 86.2 kg
[~2018-05-29 12:38] MED LIST changes: -AMLO10TA6 PO; +AMLO10TA8 PO; +DOXY100C2 PO; -ISOS120T2 PO; +ISOS120T4 PO; -OXYC-323 PO; +OXYC1TAB15 PO
--- NOTE | 2018-05-29 13:23 | EKG ---
[facility] [address] [place] [address] Test Date: 2018-05-29 Test Time: 13:12:23 Pat Name: BRONSON TAI Department: Room: Gender: M Supervisor Advice: : 1940 Requested By: JAGDEEP LANGLEY Order Number: [id number] Reading MD: Tank Lehman MD Measurements Intervals [place] Rate: 82 P: 165 VT: 218 QRS: 169 QRSD: 106 T: 131 QT: 412 QTc: 485 Interpretive Statements SINUS RHYTHM PROLONGED VT INTERVAL LIMB LEAD MISPLACEMENT Electronically Signed On 05-30-2018 10:47:41 ARTIST WOODBLOCK by Tank Lehman MD
[2018-05-29] MEDS ORDERED: ALBUTEROL SULFATE 2.5 MG/3 ML NEBU. CONT NEB ONE (13:30)
[2018-05-29] MEDS ORDERED: methylPREDNISolone SOD SUCC PF 125 MG/2 ML VIAL. IV ONE (13:30)
[2018-05-29 13:44] LABS: BASO % 1 % (0-3); EOS % 0 % (0-3); HEMATOCRIT 32.6 % (39.0-53.0); HEMOGLOBIN 10.5 g/dL (13.0-17.5); LYMPH # 0.6 x10^3/uL (1.0-4.8); LYMPH % 7 % (24-48); MEAN CORPUSCULAR HEMOGLOBIN 27 pg (25-35); MEAN CORPUSCULAR HGB CONC 32 g/dL (31-37); MEAN CORPUSCULAR VOLUME 84 fL (79-100); MONO # 0.5 x10^3/uL (0.0-1.1); MONO % 6 % (0-9); NEUT # 7.3 x10^3uL (1.8-7.7); NEUT % 87 % (31-73); PLATELET COUNT 245 x10^3/uL (140-400); RED BLOOD COUNT 3.91 x10^6/uL (4.30-5.70); RED CELL DISTRIBUTION WIDTH 15.3 % (11.5-14.5); WHITE BLOOD COUNT 8.4 x10^3/uL (4.0-11.0)
[2018-05-29 13:56] LABS: CALCIUM 9.1 mg/dL (8.5-10.1); CREATININE 1.4 mg/dL (0.7-1.3); GFR 59.8; POTASSIUM 4.8 mmol/L (3.5-5.1)
--- NOTE | 2018-05-29 14:01 | RAD ---
Chest, PA and Lateral: Technique: PA and lateral views of the chest were obtained. History: Shortness of breath. Comparison: 02/06/2018. Findings: Low lung volumes accentuate heart size and pulmonary vascularity. There is blunting of the right CP angle could be a small pleural effusion or scarring. Few patchy bibasilar lung airspace opacities. IMPRESSION: 1. Patchy bibasilar lung airspace opacities likely atelectasis or infiltrates. 2. Blunting of the right CP angle likely scarring or minimal effusion similar to prior exam. Electronically signed by: Maco Purdy MD (05/29/2018 1:56 PM) [place] [id number]
[2018-05-29 14:02] LABS: ALBUMIN 3.1 g/dL (3.4-5.0); ALBUMIN/GLOBULIN RATIO 0.8 (1.0-1.7); TOTAL BILIRUBIN 0.4 mg/dL (0.2-1.0)
[2018-05-29 14:11] LABS: % BANDS 13 % (0-9); % LYMPHS 5 % (24-48); % MONOS 6 % (0-10); % SEGS 76 % (35-66); PLT ESTIMATE ADEQUATE (ADEQUATE)
[2018-05-29 14:38] LABS: INFLUENZA A PATIENT NEGATIVE (NEGATIVE); INFLUENZA B PATIENT NEGATIVE (NEGATIVE)
[2018-05-29] MEDS ORDERED: levOFLOXacin PER PHARMACY. MC PRN (15:15)
[2018-05-29] MEDS ORDERED: LEVO500T59 PO (16:21)
[2018-05-29] MEDS ORDERED: PRED50TA PO (16:21)
--- NOTE | 2018-05-29 16:22 | PHYS DOC ---
Past Medical History Past Medical History: Asthma, CAD, COPD, Diabetes-Type II, DVT, High Cholesterol, Hypertension, [place], Prostatitis, Other Additional Past Medical Histor: EMPHYSEMA Past Surgical History: Other Additional Past Surgical Histo: Left lower lobectomy; right leg,R TOES AMPUTATED Additional Information: 0.5 PPD Alcohol Use: Heavy Drug Use: None Adult General Chief Complaint Chief Complaint: MULTIPLE COMPLAINTS HPI HPI Patient is a 77 year old male who presents with increased coughing and SOA. He has also experienced chest pain with cough and back pain x 1 month that extends down into his buttocks. He states he is coughing up thick sputum. He denies fever, nausea or vomiting. He is eating and drinking normally. Review of Systems Review of Systems Constitutional: Denies fever or chills [] Eyes: Denies change in visual acuity, redness, or eye pain [] HENT: Denies nasal congestion or sore throat [] Respiratory: See HPI Cardiovascular: No additional information not addressed in HPI [] GI: Denies abdominal pain, nausea, vomiting, bloody stools or diarrhea [] : Denies dysuria or hematuria [] Musculoskeletal: See HPI Integument: Denies rash or skin lesions [] Neurologic: Denies headache, focal weakness or sensory changes [] Endocrine: Denies polyuria or polydipsia [] All other systems were reviewed and found to be within normal limits, except as documented in this note. Current Medications Current Medications Current Medications Medications (Trade) Dose Ordered Sig/Ann Marie Start Time Stop Time Status Last Admin Dose Admin Albuterol Sulfate (Ventolin Neb Soln) 10 mg 1X ONCE 05/29/18 13:30 05/29/18 13:31 DC 05/29/18 13:33 10 MG Levofloxacin/ Dextrose 100 ml @ 100 mls/hr Q24H 05/29/18 15:30 05/29/18 17:11 DC 05/29/18 15:23 100 MLS/HR Levofloxacin/ Dextrose (Levaquin Per Pharmacy) 1 each PRN DAILY PRN 05/29/18 15:15 05/29/18 17:11 DC Methylprednisolone Sodium Succinate (SOLU-Medrol 125MG VIAL) 125 mg 1X ONCE 05/29/18 13:30 05/29/18 13:31 DC 05/29/18 14:09 125 MG Allergies Allergies Allergies Coded Allergies Type Severity Reaction Last Updated Verified lisvishnupril Allergy Severe Anaphylaxis 09/30/16 Yes Physical Exam Physical Exam Constitutional: Well developed, well nourished, no acute distress, non-toxic appearance. [] HENT: Normocephalic, atraumatic, bilateral external ears normal, oropharynx moist, no oral exudates, nose normal. [] Eyes: PERRLA, EOMI, conjunctiva normal, no discharge. [] Neck: Normal range of motion, no tenderness, supple, no stridor. [] Cardiovascular:Heart rate regular rhythm, no murmur [] Lungs & Thorax: Bilateral breath sounds decreased with mild wheezes noted Abdomen: Bowel sounds normal, soft, no tenderness, no masses, no pulsatile masses. [] Skin: Warm, dry, no erythema, no rash. [] Back: No tenderness, no CVA tenderness. [] Extremities: tenderness to left SI joint extending into buttock, no cyanosis, no clubbing, ROM intact, no edema. [] Neurologic: Alert and oriented X 3, normal motor function, normal sensory function, no focal deficits noted. [] Psychologic: Affect normal, judgement normal, mood normal. [] Current Patient Data Vital Signs Vital Signs Date Time Temp Pulse Resp B/P (MAP) Pulse Ox O2 Delivery O2 Flow Rate FiO2 05/29/18 16:35 82 128/65 (86) 100 Room Air 05/29/18 13:00 98.1 20 98.1 Lab Values Laboratory Tests Test 05/29/18 13:26 05/29/18 14:10 White Blood Count 8.4 x10^3/uL (4.0-11.0) Red Blood Count 3.91 x10^6/uL (4.30-5.70) L Hemoglobin 10.5 g/dL (13.0-17.5) L Hematocrit 32.6 % (39.0-53.0) L Mean Corpuscular Volume 84 fL (79-100) Mean Corpuscular Hemoglobin 27 pg (25-35) Mean Corpuscular Hemoglobin Concent 32 g/dL (31-37) Red Cell Distribution Width 15.3 % (11.5-14.5) H Platelet Count 245 x10^3/uL (140-400) Neutrophils (%) (Auto) 87 % (31-73) H Lymphocytes (%) (Auto) 7 % (24-48) L Monocytes (%) (Auto) 6 % (0-9) Eosinophils (%) (Auto) 0 % (0-3) Basophils (%) (Auto) 1 % (0-3) Neutrophils # (Auto) 7.3 x10^3uL (1.8-7.7) Lymphocytes # (Auto) 0.6 x10^3/uL (1.0-4.8) L Monocytes # (Auto) 0.5 x10^3/uL (0.0-1.1) Eosinophils # (Auto) 0.0 x10^3/uL (0.0-0.7) Basophils # (Auto) 0.0 x10^3/uL (0.0-0.2) Segmented Neutrophils % 76 % (35-66) H Band Neutrophils % 13 % (0-9) H Lymphocytes % 5 % (24-48) L Monocytes % 6 % (0-10) Platelet Estimate Adequate (ADEQUATE) Sodium Level 136 mmol/L (136-145) Potassium Level 4.8 mmol/L (3.5-5.1) Chloride Level 101 mmol/L (98-107) Carbon Dioxide Level 23 mmol/L (21-32) Anion Gap 12 (6-14) Blood Urea Nitrogen 30 mg/dL (8-26) H Creatinine 1.4 mg/dL (0.7-1.3) H Estimated GFR (Cockcroft-Gault) 59.8 BUN/Creatinine Ratio 21 (6-20) H Glucose Level 143 mg/dL (70-99) H Lactic Acid Level 1.1 mmol/L (0.4-2.0) Calcium Level 9.1 mg/dL (8.5-10.1) Total Bilirubin 0.4 mg/dL (0.2-1.0) Aspartate Amino Transferase (AST) 18 U/L (15-37) Alanine Aminotransferase (ALT) 13 U/L (16-63) L Alkaline Phosphatase 82 U/L (46-116) Troponin I Quantitative < 0.017 ng/mL (0.000-0.055) CX-Gjp-W-Type Natriuretic Peptide 709 pg/mL (0-449) H Total Protein 7.0 g/dL (6.4-8.2) Albumin 3.1 g/dL (3.4-5.0) L Albumin/Globulin Ratio 0.8 (1.0-1.7) L Influenza Type A Antigen Negative (NEGATIVE) Influenza Type B Antigen Negative (NEGATIVE) Laboratory Tests 05/29/18 13:26 Laboratory Tests 05/29/18 13:26 Microbiology 05/29/18 Blood Culture - Preliminary, Resulted NO GROWTH AFTER 3 DAYS EKG EKG [] Radiology/Procedures Radiology/Procedures [] PATIENT: BRONSON TAI ACCOUNT: [id number] : 1940 LOCATION: ER AGE: 77 SEX: M EXAM STATUS: REG ER ORD. PHYSICIAN: JAGDEEP LANGLEY APRN REASON: soa x 5 days/ iv at 1325 PROCEDURE: CHEST PA & LATERAL Chest, PA and Lateral: Technique: PA and lateral views of the chest were obtained. History: Shortness of breath. Comparison: 02/06/2018. Findings: Low lung volumes accentuate heart size and pulmonary vascularity. There is blunting of the right CP angle could be a small pleural effusion or scarring. Few patchy bibasilar lung airspace opacities. IMPRESSION: 1. Patchy bibasilar lung airspace opacities likely atelectasis or infiltrates. 2. Blunting of the right CP angle likely scarring or minimal effusion similar to prior exam. Electronically signed by: Maco Purdy MD (05/29/2018 1:56 PM) [facility] DICTATED and SIGNED BY: MACO PURDY MD DATE: 05/29/18 1358 Course & Med Decision Making Course & Med Decision Making Pertinent Labs and Imaging studies reviewed. (See chart for details) []The patient was given an hour long nebulizer treatment with resolution of his shortness of air. His chest x-rays positive for pneumonia. The patient was given prednisone to both resolve the inflammation in his lungs as well as what appears to be inflammation in his back. The patient is requesting to be released to home and would prefer not to be admitted to the hospital. He is under strict instructions to return immediately if worsening. Dragon Disclaimer Dragon Disclaimer This electronic medical record was generated, in whole or in part, using a voice recognition dictation system. Departure Departure Impression: Primary Impression: Pneumonia Disposition: HOME, SELF-CARE Condition: STABLE Referrals: ELO OLIVER APRN (PCP) Patient Instructions: Pneumonia, Adult Additional Instructions: Take the medications as directed. If you're shortness of air increases, you develop a fever or are worsening return to the emergency department immediately. Scripts Prednisone (PREDNISONE) 50 Mg Tablet 1 TAB PO DAILY for shortness of air, #5 TAB Prov: JAGDEEP LANGLEY APRN 05/29/18 Levofloxacin (LEVAQUIN) 500 Mg Tablet 1 TAB PO DAILY for pneumonia, #10 TAB Prov: JAGDEEP LANGLEY APRN 05/29/18 JAGDEEP LANGLEY APRN May 29, 2018 16:22
[2018-05-29 16:35] VITALS: BP 128/65
== END 2018-05-29 17:11 | disposition home or self-care (01) ==
LOC: ER 12:38
DX: J18.9 Pneumonia, unspecified organism (principal); E78.00 Pure hypercholesterolemia, unspecified; J45.909 Unspecified asthma, uncomplicated; J43.9 Emphysema, unspecified; E11.9 Type 2 diabetes mellitus without complications; I25.2 Old myocardial infarction; I10 Essential (primary) hypertension; F17.200 Nicotine dependence, unspecified, uncomplicated; I25.10 Atherosclerotic heart disease of native coronary artery without angina pectoris; F10.20 Alcohol dependence, uncomplicated; Y90.9 Presence of alcohol in blood, level not specified; Z88.8 Allergy status to other drugs, medicaments and biological substances
CPT/HCPCS: 36415; 71046; 80053; 83605; 83880; 84484; 85007; 85025; 87040; 87804; 93005; 94644; 96365; 96375; 99285; J1956; J2930; J7613; 94640

== ENCOUNTER 2018-08-01 10:35 | Emergency (ER) | payer MEDICARE ==
[~2018-08-01] VITALS: Ht 188 cm; Wt 77.1 kg
[2018-08-01] MEDS ORDERED: IPRATRPIUM/ALBUTEROL 0.5/2.5MG 3 ML NEBU. NEB ONE (11:00)
--- NOTE | 2018-08-01 11:31 | EKG ---
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
--- NOTE | 2018-08-01 11:49 | RAD ---
Chest, PA and Lateral: Technique: PA and lateral views of the chest were obtained. History: Shortness of breath. Comparison: 05/29/2018. Findings/ impression: Mild prominent cardiomediastinal silhouette. Minimal elevation of the right hemidiaphragm similar to prior exam. Blunting of the right CP angle likely atelectasis or infiltrate with small right pleural effusion. There is unchanged since prior exam. Electronically signed by: Maco Purdy MD (08/01/2018 11:46 AM) [facility]
--- NOTE | 2018-08-01 12:05 | PHYS DOC ---
Past Medical History Past Medical History: Asthma, CAD, COPD, Diabetes-Type II, DVT, High Cholesterol, Hypertension, [place], Prostatitis, Other Additional Past Medical Histor: EMPHYSEMA Past Surgical History: Other Additional Past Surgical Histo: Left lower lobectomy; right leg,R TOES AMPUTATED Alcohol Use: Heavy Drug Use: None Adult General Chief Complaint Chief Complaint: SHORTNESS OF BREATH HPI HPI 77-year-old male presents with report of several day history of shortness of breath with productive cough. Patient reports cough with white phlegm. Denies chest pain. Denies pleuritic pain. Denies fever or chills. Patient does report some associated nasal congestion. Patient also complaining of bilateral knee pain which is chronic. Patient requesting refills of all his medications. Review of Systems Review of Systems Constitutional: Denies fever or chills Eyes: Denies redness or eye pain HENT: Reports nasal congestion or sore throat Respiratory: Reports cough and shortness of breath Cardiovascular: Denies chest pain or palpitations GI: Denies abdominal pain, nausea, or vomiting : Denies dysuria or hematuria Musculoskeletal: Reports acute on chronic knee pain Integument: Denies rash or skin lesions Neurologic: Denies headache, focal weakness or sensory changes Complete systems were reviewed and found to be within normal limits, except as documented in this note. Current Medications Current Medications Current Medications Medications (Trade) Dose Ordered Sig/Ann Marie Start Time Stop Time Status Last Admin Dose Admin Albuterol/ Ipratropium (Duoneb) 3 ml 1X ONCE 08/01/18 11:00 08/01/18 11:03 DC 08/01/18 11:09 3 ML Allergies Allergies Allergies Coded Allergies Type Severity Reaction Last Updated Verified lisinopril Allergy Severe Anaphylaxis 09/30/16 Yes Physical Exam Physical Exam Constitutional: Well developed, well nourished, no acute distress, non-toxic appearance HENT: Normocephalic, atraumatic, oropharynx moist Eyes: Conjunctiva normal, no discharge Neck: Normal range of motion, no tenderness, supple Cardiovascular: Heart rate normal, regular rhythm Lungs & Thorax: Bilateral breath diminished at bases, no respiratory distress, scant wheezing noted Abdomen: Soft, no tenderness Skin: Warm, dry, no erythema, no rash Extremities: bilateral knee tenderness on ROM, no deformity Neurologic: Alert and oriented X 3, no focal deficits noted Psychologic: Affect normal, judgement normal Current Patient Data Vital Signs Lab Values Laboratory Tests Test 08/01/18 12:08 White Blood Count 6.4 x10^3/uL (4.0-11.0) Red Blood Count 3.78 x10^6/uL (4.30-5.70) L Hemoglobin 9.9 g/dL (13.0-17.5) L Hematocrit 31.1 % (39.0-53.0) L Mean Corpuscular Volume 83 fL (79-100) Mean Corpuscular Hemoglobin 26 pg (25-35) Mean Corpuscular Hemoglobin Concent 32 g/dL (31-37) Red Cell Distribution Width 15.8 % (11.5-14.5) H Platelet Count 293 x10^3/uL (140-400) Neutrophils (%) (Auto) 65 % (31-73) Lymphocytes (%) (Auto) 24 % (24-48) Monocytes (%) (Auto) 8 % (0-9) Eosinophils (%) (Auto) 3 % (0-3) Basophils (%) (Auto) 1 % (0-3) Neutrophils # (Auto) 4.1 x10^3uL (1.8-7.7) Lymphocytes # (Auto) 1.5 x10^3/uL (1.0-4.8) Monocytes # (Auto) 0.5 x10^3/uL (0.0-1.1) Eosinophils # (Auto) 0.2 x10^3/uL (0.0-0.7) Basophils # (Auto) 0.0 x10^3/uL (0.0-0.2) Urine Collection Type Unknown Urine Color Yellow Urine Clarity Clear Urine pH 5.5 Urine Specific Raymond 1.015 Urine Protein 30 mg/dL (NEG-TRACE) Urine Glucose (UA) Negative mg/dL (NEG) Urine Ketones (Stick) Negative mg/dL (NEG) Urine Blood Trace (NEG) Urine Nitrite Negative (NEG) Urine Bilirubin Negative (NEG) Urine Urobilinogen Dipstick 0.2 mg/dL (0.2 mg/dL) Urine Leukocyte Esterase Negative (NEG) Urine RBC 6-10 /HPF (0-2) Urine WBC 0 /HPF (0-4) Urine Squamous Epithelial Cells Mod /LPF Urine Bacteria 0 /HPF (0-FEW) Urine Hyaline Casts Moderate /HPF Urine Mucus Mod /LPF Sodium Level 140 mmol/L (136-145) Potassium Level 4.4 mmol/L (3.5-5.1) Chloride Level 104 mmol/L (98-107) Carbon Dioxide Level 24 mmol/L (21-32) Anion Gap 12 (6-14) Blood Urea Nitrogen 20 mg/dL (8-26) Creatinine 1.4 mg/dL (0.7-1.3) H Estimated GFR (Cockcroft-Gault) 59.8 BUN/Creatinine Ratio 14 (6-20) Glucose Level 92 mg/dL (70-99) Calcium Level 9.0 mg/dL (8.5-10.1) Magnesium Level 2.3 mg/dL (1.8-2.4) Total Bilirubin 0.2 mg/dL (0.2-1.0) Aspartate Amino Transferase (AST) 13 U/L (15-37) L Alanine Aminotransferase (ALT) 10 U/L (16-63) L Alkaline Phosphatase 82 U/L (46-116) Creatine Kinase 92 U/L (39-308) Creatine Kinase MB (Mass) 0.8 ng/mL (0.0-3.6) Creatine Kinase MB Relative Index 0.9 % (0-4) Troponin I Quantitative < 0.017 ng/mL (0.000-0.055) ZA-Eas-O-Type Natriuretic Peptide 1612 pg/mL (0-449) H Total Protein 7.7 g/dL (6.4-8.2) Albumin 3.1 g/dL (3.4-5.0) L Albumin/Globulin Ratio 0.7 (1.0-1.7) L Laboratory Tests 08/01/18 12:08 Laboratory Tests 08/01/18 12:08 EKG EKG @1110 NSR at 62bpm, NO ST elevation, Q wave in III Radiology/Procedures Radiology/Procedures PROCEDURE: CHEST PA & LATERAL Chest, PA and Lateral: Technique: PA and lateral views of the chest were obtained. History: Shortness of breath. Comparison: 05/29/2018. Findings/ impression: Mild prominent cardiomediastinal silhouette. Minimal elevation of the right hemidiaphragm similar to prior exam. Blunting of the right CP angle likely atelectasis or infiltrate with small right pleural effusion. There is unchanged since prior exam. Electronically signed by: Maco Purdy MD (08/01/2018 11:46 AM) [facility] Course & Med Decision Making Course & Med Decision Making Pertinent Labs and Imaging studies reviewed. (See chart for details) Patient presents with report of shortness of air and bilateral knee pain. Patient noted to have some wheezing and diminished lung gamez. Symptomatic alyssa atment provided. Respiratory neb given with interval improvement. Chest x-ray without acute infiltration. Cannot exclude small pleural effusion. Labs obtained and posted to chart. Troponin within normal limits. EKG stable. Patient stable for discharge with outpatient follow-up with PCP. Discussed findings and plan with patient, who acknowledges understanding and agreement. Dragon Disclaimer Dragon Disclaimer This electronic medical record was generated, in whole or in part, using a voice recognition dictation system. Departure Departure Impression: Primary Impression: Bronchitis Additional Impression: Knee pain, chronic Disposition: 01 HOME, SELF-CARE Condition: STABLE Referrals: ELO OLIVER APRN (PCP) Patient Instructions: Acute Bronchitis, [id number] Scripts Albuterol Sulfate (PROAIR HFA INHALER) 8.5 Gm Hfa.aer.ad 1 PUFF INH PRN Q6HRS PRN for SHORTNESS OF BREATH, #1 INHALER 0 Refills Prov: DAJA GRAHAM DO 08/01/18 Albuterol Sulfate (ALBUTEROL SULFATE NEB SOLN) 2.5 Mg/3 Ml Vial.neb 1 VIAL NEB PRN Q4HRS PRN for WHEEZING, #50 VIAL Prov: DAJA GRAHAM DO 08/01/18 Naproxen (NAPROXEN) 375 Mg Tablet 1 TAB PO BID PRN for PAIN, #20 TAB 0 Refills Prov: DAJA GRAHAM DO 08/01/18 Problem Qualifiers Additional Impression: Knee pain, chronic Laterality: bilateral Qualified Codes: M25.561 - Pain in right knee; M25.562 - Pain in left knee; G89.29 - Other chronic pain DAJA GRAHAM DO Aug 01, 2018 12:05
[2018-08-01 12:18] LABS: BASO % 1 % (0-3); EOS # 0.2 x10^3/uL (0.0-0.7); EOS % 3 % (0-3); HEMATOCRIT 31.1 % (39.0-53.0); HEMOGLOBIN 9.9 g/dL (13.0-17.5); LYMPH # 1.5 x10^3/uL (1.0-4.8); LYMPH % 24 % (24-48); MEAN CORPUSCULAR HEMOGLOBIN 26 pg (25-35); MEAN CORPUSCULAR HGB CONC 32 g/dL (31-37); MEAN CORPUSCULAR VOLUME 83 fL (79-100); MONO # 0.5 x10^3/uL (0.0-1.1); MONO % 8 % (0-9); NEUT # 4.1 x10^3uL (1.8-7.7); NEUT % 65 % (31-73); PLATELET COUNT 293 x10^3/uL (140-400); RED BLOOD COUNT 3.78 x10^6/uL (4.30-5.70); RED CELL DISTRIBUTION WIDTH 15.8 % (11.5-14.5); WHITE BLOOD COUNT 6.4 x10^3/uL (4.0-11.0)
[2018-08-01 12:19] LABS: BILIRUBIN,URINE NEGATIVE (NEG); CLARITY,URINE CLEAR; COLOR,URINE YELLOW; NITRITE,URINE NEGATIVE (NEG); PH,URINE 5.5; PROTEIN,URINE 30 mg/dL (NEG-TRACE); UROBILINOGEN,URINE 0.2 mg/dL (0.2 mg/dL)
[2018-08-01 12:35] LABS: HYALINE CASTS, URINE MODERATE /HPF; SQUAMOUS EPITHELIAL CELL,UR MOD /LPF
[2018-08-01 12:36] LABS: BACTERIA,URINE 0 /HPF (0-FEW); WBC,URINE 0 /HPF (0-4)
[2018-08-01 13:29] LABS: CREATININE 1.4 mg/dL (0.7-1.3); GFR 59.8; POTASSIUM 4.4 mmol/L (3.5-5.1)
[2018-08-01 13:35] LABS: ALBUMIN 3.1 g/dL (3.4-5.0); ALBUMIN/GLOBULIN RATIO 0.7 (1.0-1.7); MAGNESIUM 2.3 mg/dL (1.8-2.4); TOTAL BILIRUBIN 0.2 mg/dL (0.2-1.0); TOTAL PROTEIN 7.7 g/dL (6.4-8.2)
[2018-08-01] MEDS ORDERED: ALBU2.5V8 INH (13:53)
[2018-08-01] MEDS ORDERED: NAPR-695 PO (13:53)
[2018-08-01] MEDS ORDERED: ALBU2.5V5 NEB (13:53)
[2018-08-01 15:00] VITALS: BP 166/100
== END 2018-08-01 15:09 | disposition home or self-care (01) ==
LOC: ER 10:35
DX: J44.9 Chronic obstructive pulmonary disease, unspecified (principal); G89.29 Other chronic pain; M25.561 Pain in right knee; M25.562 Pain in left knee; I25.10 Atherosclerotic heart disease of native coronary artery without angina pectoris; E11.9 Type 2 diabetes mellitus without complications; E78.00 Pure hypercholesterolemia, unspecified; I10 Essential (primary) hypertension; I25.2 Old myocardial infarction; F10.20 Alcohol dependence, uncomplicated; Y90.9 Presence of alcohol in blood, level not specified; Z86.718 Personal history of other venous thrombosis and embolism; Z88.8 Allergy status to other drugs, medicaments and biological substances; Z89.421 Acquired absence of other right toe(s)
CPT/HCPCS: 36415; 71046; 80053; 81001; 82553; 83735; 83880; 84484; 85025; 93005; 94640; 99284; J7620

== ENCOUNTER 2018-08-10 13:13 | Inpatient (IN) | payer MEDICARE ==
[~2018-08-10] VITALS: Ht 188 cm; Wt 88.7 kg
[~2018-08-10 13:13] MED LIST changes: +ALBU2.5V5 NEB; +ALBU2.5V8 INH; +NAPR-695 PO
[2018-08-10] MEDS ORDERED: IPRATRPIUM/ALBUTEROL 0.5/2.5MG 3 ML NEBU. NEB ONE ×2 (14:15→15:15)
[2018-08-10] MEDS ORDERED: methylPREDNISolone SOD SUCC PF 125 MG/2 ML VIAL. IV ONE (14:15)
[2018-08-10 14:30] LABS: BASO % 1 % (0-3); EOS # 0.2 x10^3/uL (0.0-0.7); EOS % 4 % (0-3); HEMATOCRIT 30.8 % (39.0-53.0); LYMPH # 0.7 x10^3/uL (1.0-4.8); LYMPH % 15 % (24-48); MEAN CORPUSCULAR HEMOGLOBIN 26 pg (25-35); MEAN CORPUSCULAR HGB CONC 32 g/dL (31-37); MEAN CORPUSCULAR VOLUME 81 fL (79-100); MONO # 0.4 x10^3/uL (0.0-1.1); MONO % 9 % (0-9); NEUT # 3.6 x10^3uL (1.8-7.7); NEUT % 72 % (31-73); PLATELET COUNT 287 x10^3/uL (140-400); RED CELL DISTRIBUTION WIDTH 15.8 % (11.5-14.5); WHITE BLOOD COUNT 4.9 x10^3/uL (4.0-11.0)
[2018-08-10 14:38] LABS: CALCIUM 9.3 mg/dL (8.5-10.1); CREATININE 1.7 mg/dL (0.7-1.3); GFR 47.8; POTASSIUM 4.2 mmol/L (3.5-5.1)
--- NOTE | 2018-08-10 14:54 | RAD ---
Single view of the chest. 08/10/2018 2:09 PM Indication: left chest pain Comparison: Chest radiograph February 06, 2018 Findings: Right-sided volume loss and elevation of the right hemidiaphragm is stable. No pneumothorax is identified. No convincing pleural effusion is identified. Heart size is top normal. Aortic calcification noted. Bony thorax is grossly unchanged. IMPRESSION: No evidence of acute cardiopulmonary process or acute change from comparison studies is identified. Electronically signed by: Qasim Gonzalez MD (08/10/2018 2:51 PM) [facility]
--- NOTE | 2018-08-10 15:18 | PHYS DOC ---
Past Medical History Past Medical History: Asthma, CAD, COPD, Diabetes-Type II, DVT, High Cholesterol, Hypertension, [place], Prostatitis, Other Additional Past Medical Histor: EMPHYSEMA Past Surgical History: Other Additional Past Surgical Histo: Left lower lobectomy; right leg,R TOES AMPUTATED Alcohol Use: None Drug Use: None Adult General Chief Complaint Chief Complaint: SHORTNESS OF BREATH HPI HPI Patient is a 77 year old male who presents the ER for evaluation of shortness of breath. Patient with history of COPD and asthma. He reports increased inhaler use, shortness of breath and work of breathing over the past 2 days. He reports a productive cough but no fever. No sputum change. Unsure of fluid vaccination status. No myalgias. Only with cough. Currently no chest pain. No lower external edema. Denies any history of CHF. Review of Systems Review of Systems Constitutional: Denies fever or chills [] Eyes: Denies change in visual acuity, redness, or eye pain [] HENT: Denies nasal congestion or sore throat [] Respiratory: +cough, +SOB Cardiovascular: +chest pain, no palpitations, no orthopnea GI: Denies abdominal pain, nausea, vomiting, bloody stools or diarrhea [] : Denies dysuria or hematuria [] Musculoskeletal: Denies back pain or joint pain [] Integument: Denies rash or skin lesions [] Neurologic: Denies headache, focal weakness or sensory changes [] Endocrine: Denies polyuria or polydipsia [] All other systems were reviewed and found to be within normal limits, except as documented in this note. Current Medications Current Medications Current Medications Medications (Trade) Dose Ordered Sig/Ann Marie Start Time Stop Time Status Last Admin Dose Admin Albuterol/ Ipratropium (Duoneb) 3 ml 1X ONCE 08/10/18 15:15 08/10/18 15:18 DC 08/10/18 15:23 3 ML Methylprednisolone Sodium Succinate (SOLU-Medrol 125MG VIAL) 60 mg 1X ONCE 08/10/18 14:15 08/10/18 14:18 DC 08/10/18 14:54 60 MG Allergies Allergies Allergies Coded Allergies Type Severity Reaction Last Updated Verified lisinopril Allergy Severe Anaphylaxis 09/30/16 Yes Physical Exam Physical Exam Constitutional: Well developed, well nourished, HENT: Normocephalic, atraumatic, Eyes: PERRLA, EOMI, Neck: Normal range of motion, no tenderness, supple, no stridor. [] Cardiovascular:Heart rate regular rhythm, no murmur [] Lungs & Thorax: Tachypnea, mild respiratory distress, diffuse wheezing throughout, mild accessory muscle use. Abdomen: Bowel sounds normal, soft, no tenderness, no masses, no pulsatile masses. [] Skin: Warm, dry, no erythema, no rash. [] Back: No tenderness, no CVA tenderness. [] Extremities: no clubbing, ROM intact, no edema. [] Neurologic: Alert and oriented X 3, no focal deficits noted. [] Psychologic: Affect normal, judgement normal, mood normal. [] Current Patient Data Vital Signs Vital Signs Date Time Temp Pulse Resp B/P (MAP) Pulse Ox O2 Delivery O2 Flow Rate FiO2 08/10/18 14:51 80 20 132/72 (92) 94 Room Air 08/10/18 13:42 97.8 97.8 Lab Values Laboratory Tests Test 08/10/18 14:23 White Blood Count 4.9 x10^3/uL (4.0-11.0) Red Blood Count 3.80 x10^6/uL (4.30-5.70) L Hemoglobin 10.0 g/dL (13.0-17.5) L Hematocrit 30.8 % (39.0-53.0) L Mean Corpuscular Volume 81 fL (79-100) Mean Corpuscular Hemoglobin 26 pg (25-35) Mean Corpuscular Hemoglobin Concent 32 g/dL (31-37) Red Cell Distribution Width 15.8 % (11.5-14.5) H Platelet Count 287 x10^3/uL (140-400) Neutrophils (%) (Auto) 72 % (31-73) Lymphocytes (%) (Auto) 15 % (24-48) L Monocytes (%) (Auto) 9 % (0-9) Eosinophils (%) (Auto) 4 % (0-3) H Basophils (%) (Auto) 1 % (0-3) Neutrophils # (Auto) 3.6 x10^3uL (1.8-7.7) Lymphocytes # (Auto) 0.7 x10^3/uL (1.0-4.8) L Monocytes # (Auto) 0.4 x10^3/uL (0.0-1.1) Eosinophils # (Auto) 0.2 x10^3/uL (0.0-0.7) Basophils # (Auto) 0.0 x10^3/uL (0.0-0.2) Sodium Level 137 mmol/L (136-145) Potassium Level 4.2 mmol/L (3.5-5.1) Chloride Level 102 mmol/L (98-107) Carbon Dioxide Level 27 mmol/L (21-32) Anion Gap 8 (6-14) Blood Urea Nitrogen 40 mg/dL (8-26) H Creatinine 1.7 mg/dL (0.7-1.3) H Estimated GFR (Cockcroft-Gault) 47.8 Glucose Level 119 mg/dL (70-99) H Calcium Level 9.3 mg/dL (8.5-10.1) Troponin I Quantitative < 0.017 ng/mL (0.000-0.055) Laboratory Tests 08/10/18 14:23 Laboratory Tests 08/10/18 14:23 EKG EKG 1354: Normal sinus rhythm, heart rate 79, no significant ST segment changes.[] Radiology/Procedures Radiology/Procedures CXR: IMPRESSION: No evidence of acute cardiopulmonary process or acute change from comparison studies is identified. Electronically signed by: Qasim Gonzalez MD (08/10/2018 2:51 PM) [facility] [] Course & Med Decision Making Course & Med Decision Making Pertinent Labs and Imaging studies reviewed. (See chart for details) []1522: Some mild improvement with a breathing treatment. The oral car serial breathing treatment. Patient given IV Solu-Medrol while in the ER. He continued to have O2 saturation of only 90-92% on room air. Will admit for continued management. EKG with no acute findings. Initial troponin with no acute findings. Chest x-ray with no obvious infiltrate. Discussed with Dr. Alvarado who is agreeable to admission. Patient been hemodynamically stable while in the ER. Dr. Silva requested a d-dimer be ordered. He will follow up on those results. Dragon Disclaimer Dragon Disclaimer This electronic medical record was generated, in whole or in part, using a voice recognition dictation system. Departure Departure Impression: Primary Impression: COPD (chronic obstructive pulmonary disease) Disposition: 09 ADMITTED INPATIENT Admitting Physician: Other (RIFFEL) Condition: GUARDED Referrals: ELO OLIVER APRN (PCP) DONTA IKNG DO Aug 10, 2018 15:18
--- NOTE | 2018-08-10 15:33 | PDOC1 ---
History and Physical Date of Admission Date of Admission DATE: 08/10/18 TIME: 15:32 Identification/Chief Complaint Chief Complaint Shortness of breath Source Source: Chart review, Patient History of Present Illness History of Present Illness 77 yo M w/ PMHx CAD, hypertension, hyperlipidemia, COPD, pulmonary embolism, history of anemia, osteoarthritis, chronic renal insufficiency, diabetes and continues to smoke cigarettes who presents the ER for evaluation of shortness of breath. Patient has some sick grandchildren he states gave him a cold. He reports increased inhaler use, shortness of breath and work of breathing over the past 2 days. He reports a productive cough but no fever. No sputum change. No myalgias. Chest wall pain with cough in his ribs. No lower external edema. Chest x-ray was performed, which shows a chronic right lower lobe pleural thickening. Otherwise, no new acute abnormality seen. He is clinically symptomatic. He is currently on room air and his saturations are 92%. He has not improved with aggressive nebs in the ED. Past Medical History Cardiovascular: CAD, HTN, Hyperlipidemia, Other Pulmonary: COPD, Pulmonary embolus, Other GI: Other Heme/Onc: Anemia NOS, Other Hepatobiliary: No pertinent hx Psych: No pertinent hx Musculoskeletal: Osteoarthritis Rheumatologic: No pertinent hx Infectious disease: Other Renal/: Chronic renal insuff Endocrine: Diabetes Past Surgical History Past Surgical History: Other Family History Family History: No Significant, Hypertension Social History Smoke: 1 pack per day ALCOHOL: rare Drugs: None Current Problem List Problem List Problems Medical Problems: (1) COPD (chronic obstructive pulmonary disease) Status: Acute Current Medications Current Medications Current Medications Albuterol/ Ipratropium (Duoneb) 3 ml 1X ONCE NEB Last administered on at 14:29; Start 08/10/18 at 14:15; Stop 08/10/18 at 14:18; Status DC Methylprednisolone Sodium Succinate (SOLU-Medrol 125MG VIAL) 60 mg 1X ONCE IV Last administered on 08/10/18at 14:54; Start 08/10/18 at 14:15; Stop 08/10/18 at 14:18; Status DC Albuterol/ Ipratropium (Duoneb) 3 ml 1X ONCE NEB Last administered on at 15:23; Start 08/10/18 at 15:15; Stop 08/10/18 at 15:18; Status DC Active Scripts Active Proair Hfa Inhaler (Albuterol Sulfate) 8.5 Gm Hfa.aer.ad 1 Puff INH PRN Q6HRS PRN Albuterol Sulfate Neb Soln (Albuterol Sulfate) 2.5 Mg/3 Ml Vial.neb 1 Vial NEB PRN Q4HRS PRN Naproxen 375 Mg Tablet 1 Tab PO BID PRN Prednisone 50 Mg Tablet 1 Tab PO DAILY Levaquin (Levofloxacin) 500 Mg Tablet 1 Tab PO DAILY Doxycycline Hyclate 100 Mg Capsule 1 Cap PO BID Prednisone 50 Mg Tablet 1 Tab PO DAILY Keflex (Cephalexin) 500 Mg Capsule 1 Cap PO TID Azithromycin Tablet (Azithromycin) 250 Mg Tablet 250 Mg PO DAILY Humalog (Insulin Lispro) 100 Unit/1 Ml Insuln.pen 20 Units SQ TIDWMEALS 30 Days Lantus Solostar (Insulin Glargine,Hum.rec.anlog) 100 Unit/1 Ml Insuln.pen 30 Units SQ BID 28 Days Lasix (Furosemide) 40 Mg Tablet 1 Tab PO DAILY Plavix (Clopidogrel Bisulfate) 75 Mg Tablet 1 Tab PO DAILY Reported Aspirin 81 Mg Tab.chew 1 Tab PO DAILY Potassium Chloride 10 Meq Tab.sr.24h 10 Meq PO DAILY Amlodipine Besylate 10 Mg Tablet 10 Mg PO DAILY Isosorbide Mononitrate Er (Isosorbide Mononitrate) 120 Mg Tab.er.24h 120 Mg PO DAILY Diltiazem 24HR Cd (Diltiazem Hcl) 240 Mg Cap.er.24h 240 Mg PO DAILY NITROGLYCERIN SubLingual (Nitroglycerin) 0.4 Mg Tab.subl 0.4 Mg SL PRN Q5MIN PRN Atorvastatin Calcium 40 Mg Tablet 40 Mg PO HS Allergies Allergies: Coded Allergies: lisinopril (Verified Allergy, Severe, Anaphylaxis, 09/30/16) Emergent Intubation 07/12/16. ROS General: YES: Fatigue, Malaise, Appetite; No: Chills, Night Sweats, Other PSYCHOLOGICAL ROS: No: Anxiety, Behavioral Disorder, Concentration difficultie , Decreased libido, Depression, Disorientation, Hallucinations, Hostility, Irritablity, Memory difficulties, Mood Swings, Obsessive thoughts, Physical abuse, Sexual abuse, Sleep disturbances, Suicidal ideation, Other Eyes: No Blurry vision, No Decreased vision, No Double vision, No Dry eyes, No Excessive tearing, No Eye Pain, No Itchy Eyes, No Loss of vision, No Photophobia , No Scotomata, No Uses contacts, No Uses glasses, No Other HEENT: No: Heacaches, Visual Changes, Hearing change, Nasal congestion, Nasal discharge, Oral lesions, Sinus pain, Sore Throat, Epistaxis, Sneezing, Snoring, Tinnitus, Vertigo, Vocal changes, Other ALLERGY AND IMMUNOLOGY: No: Hives, Insect Bite Sensitivity, Itchy/Watery Eyes, Nasal Congestion, Post Nasal Drip, Seasonal Allergies, Other Hematological and Lymphatic: No: Bleeding Problems, Blood Clots, Blood Transfusions, Brusing, Night Sweats, Pallor, Swollen Lymph Nodes, Other ENDOCRINE: No: Breast Changes, Galactorrhea, Hair Pattern Changes, Hot Flashes , Malaise/lethargy, Mood Swings, Palpitations, Polydipsia/polyuria, Skin Changes , Temperature Intolerance, Unexpected Weight Changes, Other Breast: No New/Changing Breast Lumps, No Nipple changes, No Nipple discharge, No Other Respiratory: YES: Cough, Shortness of breath, SOB with excertion, Tachypnea, Wheezing; No: Hemoptysis, Orthopnea, Pleuritic Pain, Sputum Changes, Stridor, Other Cardiovascular: No Chest Pain, No Palpitations, No Orthopnea, No Paroxysmal Noc. Dyspnea, No Edema, No Lt Headedness, No Other Gastrointestinal: No Nausea, No Vomiting, No Abdominal Pain, No Diarrhea, No Constipation, No Melena, No Hematochezia, No Other Genitourinary: No Dysuria, No Frequency, No Incontinence, No Hematuria, No Retention, No Discharge, No Urgency, No Pain, No Flank Pain, No Other, No , No , No , No , No , No , No Musculoskeletal: No Gait Disturbance, No Joint Pain, No Joint Stiffness, No Joint Swelling, No Muscle Pain, No Muscular Weakness, No Pain In:, No Swelling In:, No Other Neurological: No Behavorial Changes, No Bowel/Bladder ControlChng, No Confusion , No Dizziness, No Gait Disturbance, No Headaches, No Impaired Coord/balance, No Memory Loss, No Numbness/Tingling, No Seizures, No Speech Problems, No Tremors, No Visual Changes, No Weakness, No Other Skin: No Dry Skin, No Eczema, No Hair Changes, No Lumps, No Mole Changes, No Mottling, No Nail Changes, No Pruritus, No Rash, No Skin Lesion Changes, No Other, No Acne Physical Exam General: Alert, Oriented X3, Cooperative, No acute distress HEENT: Atraumatic, PERRLA, EOMI, Mucous membr. moist/pink, Other (Bloodshot eyes) Lungs: Other (Diffuse wheezing, limited air movement) Heart: S1S2, RRR Abdomen: Normal bowel sounds, Soft, No tenderness, No hepatosplenomegaly, No masses Extremities: No clubbing, No cyanosis, No edema, Normal pulses, No tenderness/ swelling Skin: No rashes, No breakdown, No significant lesion Neuro: Normal gait, Normal speech, Strength at 5/5 X4 ext, Normal tone, Sensation intact, Cranial nerves 3-12 NL, Reflexes 2+ Psych/Mental Status: Mental status NL, Mood NL Vitals Vitals Vital Signs Date Time Temp Pulse Resp B/P (MAP) Pulse Ox O2 Delivery O2 Flow Rate FiO2 08/10/18 14:51 80 20 132/72 (92) 94 Room Air 08/10/18 13:42 97.8 97.8 Labs Labs Laboratory Tests Test 08/10/18 14:23 White Blood Count 4.9 x10^3/uL (4.0-11.0) Red Blood Count 3.80 x10^6/uL (4.30-5.70) Hemoglobin 10.0 g/dL (13.0-17.5) Hematocrit 30.8 % (39.0-53.0) Mean Corpuscular Volume 81 fL (79-100) Mean Corpuscular Hemoglobin 26 pg (25-35) Mean Corpuscular Hemoglobin Concent 32 g/dL (31-37) Red Cell Distribution Width 15.8 % (11.5-14.5) Platelet Count 287 x10^3/uL (140-400) Neutrophils (%) (Auto) 72 % (31-73) Lymphocytes (%) (Auto) 15 % (24-48) Monocytes (%) (Auto) 9 % (0-9) Eosinophils (%) (Auto) 4 % (0-3) Basophils (%) (Auto) 1 % (0-3) Neutrophils # (Auto) 3.6 x10^3uL (1.8-7.7) Lymphocytes # (Auto) 0.7 x10^3/uL (1.0-4.8) Monocytes # (Auto) 0.4 x10^3/uL (0.0-1.1) Eosinophils # (Auto) 0.2 x10^3/uL (0.0-0.7) Basophils # (Auto) 0.0 x10^3/uL (0.0-0.2) Sodium Level 137 mmol/L (136-145) Potassium Level 4.2 mmol/L (3.5-5.1) Chloride Level 102 mmol/L (98-107) Carbon Dioxide Level 27 mmol/L (21-32) Anion Gap 8 (6-14) Blood Urea Nitrogen 40 mg/dL (8-26) Creatinine 1.7 mg/dL (0.7-1.3) Estimated GFR (Cockcroft-Gault) 47.8 Glucose Level 119 mg/dL (70-99) Calcium Level 9.3 mg/dL (8.5-10.1) Troponin I Quantitative < 0.017 ng/mL (0.000-0.055) Laboratory Tests Test 08/10/18 14:23 White Blood Count 4.9 x10^3/uL (4.0-11.0) Red Blood Count 3.80 x10^6/uL (4.30-5.70) Hemoglobin 10.0 g/dL (13.0-17.5) Hematocrit 30.8 % (39.0-53.0) Mean Corpuscular Volume 81 fL (79-100) Mean Corpuscular Hemoglobin 26 pg (25-35) Mean Corpuscular Hemoglobin Concent 32 g/dL (31-37) Red Cell Distribution Width 15.8 % (11.5-14.5) Platelet Count 287 x10^3/uL (140-400) Neutrophils (%) (Auto) 72 % (31-73) Lymphocytes (%) (Auto) 15 % (24-48) Monocytes (%) (Auto) 9 % (0-9) Eosinophils (%) (Auto) 4 % (0-3) Basophils (%) (Auto) 1 % (0-3) Neutrophils # (Auto) 3.6 x10^3uL (1.8-7.7) Lymphocytes # (Auto) 0.7 x10^3/uL (1.0-4.8) Monocytes # (Auto) 0.4 x10^3/uL (0.0-1.1) Eosinophils # (Auto) 0.2 x10^3/uL (0.0-0.7) Basophils # (Auto) 0.0 x10^3/uL (0.0-0.2) Sodium Level 137 mmol/L (136-145) Potassium Level 4.2 mmol/L (3.5-5.1) Chloride Level 102 mmol/L (98-107) Carbon Dioxide Level 27 mmol/L (21-32) Anion Gap 8 (6-14) Blood Urea Nitrogen 40 mg/dL (8-26) Creatinine 1.7 mg/dL (0.7-1.3) Estimated GFR (Cockcroft-Gault) 47.8 Glucose Level 119 mg/dL (70-99) Calcium Level 9.3 mg/dL (8.5-10.1) Troponin I Quantitative < 0.017 ng/mL (0.000-0.055) Images Images CXR - Right-sided volume loss and elevation of the right hemidiaphragm is stable. No pneumothorax is identified. No convincing pleural effusion is identified. Heart size is top normal. Aortic calcification noted. Bony thorax is grossly unchanged. VTE Prophylaxis Ordered VTE Prophylaxis Devices: No VTE Pharmacological Prophylaxi: Yes Assessment/Plan Assessment/Plan A/P: Acute COPD exacerbation with bronchitis - will give steroids, nebulizers, singulair CAD - cont meds Hypertension - cont meds Hyperlipidemia - cont meds H/O pulmonary embolism History of anemia - likely of CKD Osteoarthritis - tylenol for pain BASIM on chronic renal insufficiency - baseline cr 1.2-1.3, now 1.7, likely vasomotor nephropathy from poor PO intake from his COPD exacerbation Diabetes - sliding scale while on steroids Smoker - advised to quit, offered nicotine patch FEN - ADA diet PPX - Heparin FULL CODE Inpatient for acute COPD exacerbation, may require 2 midnights to clear up TEDFEKO Dubois MD Aug 10, 2018 15:33
--- NOTE | 2018-08-10 15:55 | EKG ---
[facility] [address] [place] [address] Test Date: 2018-08-10 Test Time: 14:54:47 Pat Name: BRONSON TAI Department: Room: Gender: M Home [employer]: : 1940 Requested By: DONTA KING Order Number: [id number] Reading MD: New Lawson Measurements Intervals [place] Rate: 79 P: 0 HI: 204 QRS: 8 QRSD: 106 T: 42 QT: 412 QTc: 474 Interpretive Statements SINUS RHYTHM LEFT ATRIAL ABNORMALITY PROLONGED QT ABNORMAL ECG Electronically Signed On 08-15-2018 8:27:14 CDT by New Lawson
[2018-08-10] MEDS ORDERED: HYDROcodone/APAP 5/325MG 1 TAB TABLET PO PRN (17:00)
[2018-08-10] MEDS ORDERED: ACETAMINOPHEN 325 MG TABLET. PO PRN (17:00)
[2018-08-10] MEDS ORDERED: LACTULOSE 20 GM/30 ML SOLUTION. PO PRN (17:00)
[2018-08-10] MEDS ORDERED: ONDANSETRON PF 4 MG/2 ML VIAL. IV PRN (17:00)
[2018-08-10] MEDS ORDERED: NITROGLYCERIN SUBLINGUAL 0.4 MG BOTTLE OF 25. SL PRN (17:00)
[2018-08-10] MEDS ORDERED: ALBUTEROL SULFATE 2.5 MG/3 ML NEBU. NEB PRN (17:00)
[2018-08-10] MEDS ORDERED: DEXTROSE 50% 25 GM / 50ML DISP.SYRIN. IV PRN (17:00)
[2018-08-10] MEDS: INSULIN LISPRO 300 UNITS/3 ML INSULN.PEN. SQ SCH ×3 (17:00→21:28)
[2018-08-10 19:20] VITALS: BP 161/84
[2018-08-10] MEDS: BUDESONIDE 0.5 MG/2 ML NEBU. NEB SCH (20:19)
[2018-08-10] MEDS: IPRATRPIUM/ALBUTEROL 0.5/2.5MG 3 ML NEBU. NEB SCH (20:19)
[2018-08-10] MEDS ORDERED: DOXYCYCLINE HYCLATE 100 MG TABLET PO SCH (21:00)
[2018-08-10] MEDS: SENNOSIDES/DOCUSATE 8.6/50MG TABLET. PO SCH (21:00)
[2018-08-10] MEDS: DOXYCYCLINE HYCLATE 100 MG in IV DEXTROSE 5% 100ML 100 ML IV SCH (21:19)
[2018-08-10] MEDS: ATORVASTATIN CALCIUM 40 MG TABLET. PO SCH (21:19)
[2018-08-10] MEDS: HEPARIN for SUB-Q USE 5,000 UNIT/ML VIAL. SQ SCH (21:27)
[2018-08-10] MEDS: INSULIN GLARGINE 300 UNITS/3 ML INSULN.PEN. SQ SCH (21:28)
[2018-08-10 23:20] VITALS: BP 161/92
[2018-08-11 03:20] VITALS: BP 170/85
[2018-08-11] MEDS: HEPARIN for SUB-Q USE 5,000 UNIT/ML VIAL. SQ SCH ×3 (05:55→20:57)
[2018-08-11 07:00] VITALS: BP 177/90
[2018-08-11] MEDS: IPRATRPIUM/ALBUTEROL 0.5/2.5MG 3 ML NEBU. NEB SCH ×3 (07:39→15:32)
[2018-08-11] MEDS: BUDESONIDE 0.5 MG/2 ML NEBU. NEB SCH ×2 (07:40→19:42)
[2018-08-11] MEDS: INSULIN LISPRO 300 UNITS/3 ML INSULN.PEN. SQ SCH ×6 (08:00→17:26)
[2018-08-11] MEDS: SENNOSIDES/DOCUSATE 8.6/50MG TABLET. PO SCH ×2 (08:14→20:51)
[2018-08-11] MEDS: CLOPIDOGREL BISULFATE 75 MG TABLET PO SCH (08:15)
[2018-08-11] MEDS: predniSONE 10 MG TABLET PO SCH (08:16)
[2018-08-11] MEDS: amLODIPine BESYLATE 10 MG TABLET PO SCH (08:16)
[2018-08-11] MEDS: POTASSIUM CHLORIDE 10 MEQ TABLET.ER. PO SCH (08:17)
[2018-08-11] MEDS: ISOSORBIDE MONONITRATE ER 30 MG TAB.ER.24H PO SCH (08:17)
[2018-08-11] MEDS: DOXYCYCLINE HYCLATE 100 MG in IV DEXTROSE 5% 100ML 100 ML IV SCH ×2 (08:18→20:51)
[2018-08-11] MEDS: ASPIRIN CHEWABLE 81 MG TABLET. PO SCH (08:23)
[2018-08-11] MEDS ORDERED: NON FORMULARY ITEM (Prednisone 1 TAB) PO SCH (09:00)
--- NOTE | 2018-08-11 09:42 | PDOC ---
PROGRESS NOTES History of Present Illness History of Present Illness VTE Prophylaxis Ordered VTE Prophylaxis Devices: No VTE Pharmacological Prophylaxi: Yes Assessment/Plan Assessment/Plan A/P: Acute COPD exacerbation with bronchitis - will give steroids, nebulizers, singulair CAD - cont meds Hypertension - suboptimal control Hyperlipidemia - cont meds H/O pulmonary embolism History of anemia - likely of CKD Osteoarthritis - tylenol for pain BASIM on chronic renal insufficiency - baseline cr 1.2-1.3, now 1.7, likely vasomotor nephropathy from poor PO intake from his COPD exacerbation Diabetes - sliding scale while on steroids Smoker - advised to quit, offered nicotine patch cognitive 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 FEN - ADA diet PPX - Heparin FULL CODE Inpatient for acute COPD exacerbation, may require 2 midnights pulm consult rx toprol xl 25 mg po daily Vitals Vitals Vital Signs Date Time Temp Pulse Resp B/P (MAP) Pulse Ox O2 Delivery O2 Flow Rate FiO2 08/11/18 08:17 71 177/90 08/11/18 08:00 Room Air 08/11/18 07:43 95 08/11/18 07:00 97.7 20 97.7 Physical Exam General: Alert, Oriented X3, Cooperative, No acute distress Heart: Regular rate, No murmurs Lungs: Clear, Wheezing Abdomen: Normal bowel sounds, Soft, No tenderness, No hepatosplenomegaly, No masses Extremities: No clubbing, No cyanosis, No edema, Normal pulses, No tenderness/ swelling Skin: No rashes, No breakdown, No significant lesion Labs LABS PROCEDURE: CT ANGIOGRAPHY CHEST PQRS Compliance Statement: One or more of the following individualized dose reduction techniques were utilized for this examination: 1. Automated exposure control 2. Adjustment of the mA and/or kV according to patient size 3. Use of iterative reconstruction technique CT CHEST WITH CONTRAST, PULMONARY ANGIOGRAM History: CP H/O PE Comparison: CT chest without contrast, October 09, 2017. Technique: Helical CT of the chest was performed after the administration of 75 cc of Omnipaque 300 intravenous contrast according to PE protocol. Axial and coronal reconstructions were obtained. 3-D MIP images were constructed to better evaluate the pulmonary arteries. Findings: Pulmonary arteries are adequately opacified. There is no evidence of pulmonary embolism. 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 Atherosclerotic thoracic aorta. There is no dissection. Coronary artery disease. Mild bilateral gynecomastia. Cardiac size normal, no pericardial effusion. There is no adenopathy in the chest. Central airways are patent. There is respiratory motion artifact towards the lung bases. Mild scarring in the lingula is stable. Calcified granuloma left lower lobe. Mild upper lobe paraseptal and centrilobular emphysema. Scarring in the right middle and lower lobes is stable. Stable rightward deviation of the mediastinum. No compression fracture in the thoracic spine. Visualized upper abdomen unremarkable. IMPRESSION: 1. There is no CT evidence of pulmonary embolus. 2. Stable pleural-parenchymal scarring in the right lung base. 3. Mild upper lobe paraseptal and centrilobular emphysema. Electronically signed by: Myles Jacobo MD (12/01/2017 4:38 PM) [id number] Laboratory Tests Test 08/10/18 14:23 08/10/18 17:38 08/10/18 19:40 08/10/18 20:34 White Blood Count 4.9 x10^3/uL (4.0-11.0) Red Blood Count 3.80 x10^6/uL (4.30-5.70) Hemoglobin 10.0 g/dL (13.0-17.5) Hematocrit 30.8 % (39.0-53.0) Mean Corpuscular Volume 81 fL (79-100) Mean Corpuscular Hemoglobin 26 pg (25-35) Mean Corpuscular Hemoglobin Concent 32 g/dL (31-37) Red Cell Distribution Width 15.8 % (11.5-14.5) Platelet Count 287 x10^3/uL (140-400) Neutrophils (%) (Auto) 72 % (31-73) Lymphocytes (%) (Auto) 15 % (24-48) Monocytes (%) (Auto) 9 % (0-9) Eosinophils (%) (Auto) 4 % (0-3) Basophils (%) (Auto) 1 % (0-3) Neutrophils # (Auto) 3.6 x10^3uL (1.8-7.7) Lymphocytes # (Auto) 0.7 x10^3/uL (1.0-4.8) Monocytes # (Auto) 0.4 x10^3/uL (0.0-1.1) Eosinophils # (Auto) 0.2 x10^3/uL (0.0-0.7) Basophils # (Auto) 0.0 x10^3/uL (0.0-0.2) Sodium Level 137 mmol/L (136-145) Potassium Level 4.2 mmol/L (3.5-5.1) Chloride Level 102 mmol/L (98-107) Carbon Dioxide Level 27 mmol/L (21-32) Anion Gap 8 (6-14) Blood Urea Nitrogen 40 mg/dL (8-26) Creatinine 1.7 mg/dL (0.7-1.3) Estimated GFR (Cockcroft-Gault) 47.8 Glucose Level 119 mg/dL (70-99) Calcium Level 9.3 mg/dL (8.5-10.1) Troponin I Quantitative < 0.017 ng/mL (0.000-0.055) < 0.017 ng/mL (0.000-0.055) Glucose (Fingerstick) 92 mg/dL (70-99) 375 mg/dL (70-99) D-Dimer (Lizbeth) 1.32 ug/mlFEU (0.00-0.50) Test 08/11/18 07:50 08/11/18 09:35 Glucose (Fingerstick) 89 mg/dL (70-99) 148 mg/dL (70-99) Assessment and Plan Assessmemt and Plan Problems Medical Problems: (1) COPD (chronic obstructive pulmonary disease) Status: Acute Comment Review of Relevant I have reviewed the following items valerie (where applicable) has been applied. Labs Laboratory Tests Test 08/10/18 14:23 08/10/18 17:38 08/10/18 19:40 08/10/18 20:34 White Blood Count 4.9 x10^3/uL (4.0-11.0) Red Blood Count 3.80 x10^6/uL (4.30-5.70) Hemoglobin 10.0 g/dL (13.0-17.5) Hematocrit 30.8 % (39.0-53.0) Mean Corpuscular Volume 81 fL (79-100) Mean Corpuscular Hemoglobin 26 pg (25-35) Mean Corpuscular Hemoglobin Concent 32 g/dL (31-37) Red Cell Distribution Width 15.8 % (11.5-14.5) Platelet Count 287 x10^3/uL (140-400) Neutrophils (%) (Auto) 72 % (31-73) Lymphocytes (%) (Auto) 15 % (24-48) Monocytes (%) (Auto) 9 % (0-9) Eosinophils (%) (Auto) 4 % (0-3) Basophils (%) (Auto) 1 % (0-3) Neutrophils # (Auto) 3.6 x10^3uL (1.8-7.7) Lymphocytes # (Auto) 0.7 x10^3/uL (1.0-4.8) Monocytes # (Auto) 0.4 x10^3/uL (0.0-1.1) Eosinophils # (Auto) 0.2 x10^3/uL (0.0-0.7) Basophils # (Auto) 0.0 x10^3/uL (0.0-0.2) Sodium Level 137 mmol/L (136-145) Potassium Level 4.2 mmol/L (3.5-5.1) Chloride Level 102 mmol/L (98-107) Carbon Dioxide Level 27 mmol/L (21-32) Anion Gap 8 (6-14) Blood Urea Nitrogen 40 mg/dL (8-26) Creatinine 1.7 mg/dL (0.7-1.3) Estimated GFR (Cockcroft-Gault) 47.8 Glucose Level 119 mg/dL (70-99) Calcium Level 9.3 mg/dL (8.5-10.1) Troponin I Quantitative < 0.017 ng/mL (0.000-0.055) < 0.017 ng/mL (0.000-0.055) Glucose (Fingerstick) 92 mg/dL (70-99) 375 mg/dL (70-99) D-Dimer (Lizbeth) 1.32 ug/mlFEU (0.00-0.50) Test 08/11/18 07:50 08/11/18 09:35 Glucose (Fingerstick) 89 mg/dL (70-99) 148 mg/dL (70-99) Laboratory Tests Test 08/10/18 14:23 08/10/18 17:38 08/10/18 19:40 08/10/18 20:34 White Blood Count 4.9 x10^3/uL (4.0-11.0) Red Blood Count 3.80 x10^6/uL (4.30-5.70) Hemoglobin 10.0 g/dL (13.0-17.5) Hematocrit 30.8 % (39.0-53.0) Mean Corpuscular Volume 81 fL (79-100) Mean Corpuscular Hemoglobin 26 pg (25-35) Mean Corpuscular Hemoglobin Concent 32 g/dL (31-37) Red Cell Distribution Width 15.8 % (11.5-14.5) Platelet Count 287 x10^3/uL (140-400) Neutrophils (%) (Auto) 72 % (31-73) Lymphocytes (%) (Auto) 15 % (24-48) Monocytes (%) (Auto) 9 % (0-9) Eosinophils (%) (Auto) 4 % (0-3) Basophils (%) (Auto) 1 % (0-3) Neutrophils # (Auto) 3.6 x10^3uL (1.8-7.7) Lymphocytes # (Auto) 0.7 x10^3/uL (1.0-4.8) Monocytes # (Auto) 0.4 x10^3/uL (0.0-1.1) Eosinophils # (Auto) 0.2 x10^3/uL (0.0-0.7) Basophils # (Auto) 0.0 x10^3/uL (0.0-0.2) Sodium Level 137 mmol/L (136-145) Potassium Level 4.2 mmol/L (3.5-5.1) Chloride Level 102 mmol/L (98-107) Carbon Dioxide Level 27 mmol/L (21-32) Anion Gap 8 (6-14) Blood Urea Nitrogen 40 mg/dL (8-26) Creatinine 1.7 mg/dL (0.7-1.3) Estimated GFR (Cockcroft-Gault) 47.8 Glucose Level 119 mg/dL (70-99) Calcium Level 9.3 mg/dL (8.5-10.1) Troponin I Quantitative < 0.017 ng/mL (0.000-0.055) < 0.017 ng/mL (0.000-0.055) Glucose (Fingerstick) 92 mg/dL (70-99) 375 mg/dL (70-99) D-Dimer (Lizbeth) 1.32 ug/mlFEU (0.00-0.50) Test 08/11/18 07:50 08/11/18 09:35 Glucose (Fingerstick) 89 mg/dL (70-99) 148 mg/dL (70-99) Medications Current Medications Albuterol/ Ipratropium (Duoneb) 3 ml 1X ONCE NEB Last administered on 14:29; Start 08/10/18 at 14:15; Stop 08/10/18 at 14:18; Status DC Methylprednisolone Sodium Succinate (SOLU-Medrol 125MG VIAL) 60 mg 1X ONCE IV Last administered on 08/10/18 14:54; Start 08/10/18 at 14:15; Stop 08/10/18 at 14:18; Status DC Albuterol/ Ipratropium (Duoneb) 3 ml 1X ONCE NEB Last administered on at 15:23; Start 08/10/18 at 15:15; Stop 08/10/18 at 15:18; Status DC Albuterol/ Ipratropium (Duoneb) 3 ml RTQID NEB Last administered on 08/11/18 07:39; Start 08/10/18 at 20:00; Stop 08/11/18 at 19:59 Albuterol Sulfate (Ventolin Neb Soln) 2.5 mg PRN Q4HRS PRN NEB WHEEZING; Start 08/10/18 at 17:00 Amlodipine Besylate (Norvasc) 10 mg DAILY PO Last administered on 08/11/18 08: 16; Start 08/11/18 at 09:00 Aspirin (Children'S Aspirin) 81 mg DAILY PO Last administered on 08/11/18 08: 23; Start 08/11/18 at 09:00 Atorvastatin Calcium (Lipitor) 40 mg HS PO Last administered on 08/10/18 21:19 ; Start 08/10/18 at 21:00 Clopidogrel Bisulfate (Plavix) 75 mg DAILY PO Last administered on 08/11/18 08 :15; Start 08/11/18 at 09:00 Insulin Glargine (Lantus) 30 units BID SQ Last administered on 08/10/18at 21:28 ; Start 08/10/18 at 21:00 Insulin Human Lispro (HumaLOG) 20 units TIDWMEALS SQ Last administered on at 21:28; Start 08/10/18 at 17:00 Nitroglycerin (Nitrostat) 0.4 mg PRN Q5MIN PRN SL CHEST PAIN; Start 08/10/18 at 17:00 Potassium Chloride (Klor-Con) 10 meq DAILY PO Last administered on 08/11/18 08 :17; Start 08/11/18 at 09:00 Diltiazem HCl (Cardizem 24hr Cd) 240 mg DAILY PO Last administered on 08:15; Start 08/11/18 at 09:00 Doxycycline Hyclate (Vibra-Tab) 100 mg BID PO ; Start 08/10/18 at 21:00; Status Cancel Isosorbide Mononitrate (Imdur) 120 mg DAILY PO Last administered on 08/11/18 08:17; Start 08/11/18 at 09:00 Non-Formulary Medication (Prednisone ) 1 tab DAILY PO ; Start 08/11/18 at 09:00 ; Status UNV Budesonide (Pulmicort) 0.5 mg RTBID NEB Last administered on 08/11/18at 07:40; Start 08/10/18 at 20:00 Ondansetron HCl (Zofran) 4 mg PRN Q6HRS PRN IV NAUSEA/VOMITING; Start 08/10/18 at 17:00 Acetaminophen/ Hydrocodone Bitart (Lortab 5/325) 1 tab PRN Q4HRS PRN PO MILD PAIN; Start 08/10/18 at 17:00 Acetaminophen (Tylenol) 650 mg PRN Q6HRS PRN PO Headaches, Temp > 101.5F; Start 08/10/18 at 17:00 Senna/Docusate Sodium (Senna Plus) 1 tab BID PO Last administered on 08/11/18at 08:14; Start 08/10/18 at 21:00 Lactulose (Lactulose) 20 gm PRN Q12HR PRN PO CONSTIPATION; Start 08/10/18 at 17 :00 Heparin Sodium (Porcine) (Heparin Sodium) 5,000 unit Q8HRS SQ Last administered on 08/11/18at 05:55; Start 08/10/18 at 22:00 Insulin Human Lispro (HumaLOG) 0-7 UNITS TIDWMEALS SQ ; Start 08/10/18 at 17:00 Dextrose (Dextrose 50%-Water Syringe) 12.5 gm PRN Q15MIN PRN IV SEE COMMENTS; Start 08/10/18 at 17:00 Doxycycline Hyclate 100 mg/ Dextrose 100 ml @ 50 mls/hr Q12HR IV Last administered on 08/11/18at 08:18; Start 08/10/18 at 21:00 Prednisone (Prednisone) 50 mg DAILY PO Last administered on 08/11/18at 08:16; Start 08/11/18 at 09:00 Active Scripts Active Proair Hfa Inhaler (Albuterol Sulfate) 8.5 Gm Hfa.aer.ad 1 Puff INH PRN Q6HRS PRN Albuterol Sulfate Neb Soln (Albuterol Sulfate) 2.5 Mg/3 Ml Vial.neb 1 Vial NEB PRN Q4HRS PRN Naproxen 375 Mg Tablet 1 Tab PO BID PRN Prednisone 50 Mg Tablet 1 Tab PO DAILY Levaquin (Levofloxacin) 500 Mg Tablet 1 Tab PO DAILY Doxycycline Hyclate 100 Mg Capsule 1 Cap PO BID Prednisone 50 Mg Tablet 1 Tab PO DAILY Keflex (Cephalexin) 500 Mg Capsule 1 Cap PO TID Azithromycin Tablet (Azithromycin) 250 Mg Tablet 250 Mg PO DAILY Humalog (Insulin Lispro) 100 Unit/1 Ml Insuln.pen 20 Units SQ TIDWMEALS 30 Days Lantus Solostar (Insulin Glargine,Hum.rec.anlog) 100 Unit/1 Ml Insuln.pen 30 Units SQ BID 28 Days Lasix (Furosemide) 40 Mg Tablet 1 Tab PO DAILY Plavix (Clopidogrel Bisulfate) 75 Mg Tablet 1 Tab PO DAILY Reported Aspirin 81 Mg Tab.chew 1 Tab PO DAILY Potassium Chloride 10 Meq Tab.sr.24h 10 Meq PO DAILY Amlodipine Besylate 10 Mg Tablet 10 Mg PO DAILY Isosorbide Mononitrate Er (Isosorbide Mononitrate) 120 Mg Tab.er.24h 120 Mg PO DAILY Diltiazem 24HR Cd (Diltiazem Hcl) 240 Mg Cap.er.24h 240 Mg PO DAILY NITROGLYCERIN SubLingual (Nitroglycerin) 0.4 Mg Tab.subl 0.4 Mg SL PRN Q5MIN PRN Atorvastatin Calcium 40 Mg Tablet 40 Mg PO HS Vitals/I & O Vital Sign - Last 24 Hours 08/10/18 08/10/18 08/10/18 08/10/18 13:42 14:51 17:30 19:20 Temp 97.8 98.0 97.8 98.0 Pulse 75 80 82 Resp 17 20 16 B/P (MAP) 133/74 (93) 132/72 (92) 161/84 (109) Pulse Ox 93 94 95 O2 Delivery Room Air Room Air Room Air Room Air 08/10/18 08/10/18 08/10/18 08/10/18 19:30 20:21 20:22 23:20 Temp 98.5 98.5 Pulse 82 Resp 16 B/P (MAP) 161/92 (115) Pulse Ox 95 95 94 O2 Delivery Room Air Room Air Room Air Room Air 08/11/18 08/11/18 08/11/18 08/11/18 03:20 07:00 07:43 08:00 Temp 97.5 97.7 97.5 97.7 Pulse 76 71 Resp 16 20 B/P (MAP) 170/85 (113) 177/90 (119) Pulse Ox 93 100 95 O2 Delivery Room Air Room Air Room Air Room Air 08/11/18 08/11/18 08/11/18 08:15 08:16 08:17 Pulse 71 71 71 B/P (MAP) 177/90 177/90 177/90 Intake and Output 08/10/18 08/10/18 08/11/18 14:59 22:59 06:59 Intake Total 200 ml 100 ml Balance 200 ml 100 ml SUDHIR JARVIS MD Aug 11, 2018 09:42
[2018-08-11] MEDS: INSULIN GLARGINE 300 UNITS/3 ML INSULN.PEN. SQ SCH ×2 (09:45→21:00)
[2018-08-11 11:00] VITALS: BP 157/89
[2018-08-11 11:19] LABS: CALCIUM 8.9 mg/dL (8.5-10.1); CREATININE 1.3 mg/dL (0.7-1.3); GFR 65.1; POTASSIUM 4.3 mmol/L (3.5-5.1)
[2018-08-11] MEDS: METOPROLOL SUCC 24HR ER 25 MG TAB.ER.24H. PO SCH (13:56)
[2018-08-11 15:00] VITALS: BP 143/77
[2018-08-11 19:00] VITALS: BP 162/94
[2018-08-11] MEDS: ATORVASTATIN CALCIUM 40 MG TABLET. PO SCH (20:50)
[2018-08-11] MEDS: LACTOBACILLUS RHAMNOSUS GG 1 CAPSULE. PO SCH (20:50)
[2018-08-11 23:00] VITALS: BP 152/95
[2018-08-12 03:00] VITALS: BP 167/97
[2018-08-12] MEDS: HEPARIN for SUB-Q USE 5,000 UNIT/ML VIAL. SQ SCH ×3 (05:28→21:14)
[2018-08-12 05:46] LABS: BASO % 0 % (0-3); EOS % 1 % (0-3); HEMOGLOBIN 10.5 g/dL (13.0-17.5); LYMPH % 15 % (24-48); MEAN CORPUSCULAR HEMOGLOBIN 27 pg (25-35); MEAN CORPUSCULAR HGB CONC 33 g/dL (31-37); MEAN CORPUSCULAR VOLUME 82 fL (79-100); MONO # 0.6 x10^3/uL (0.0-1.1); MONO % 10 % (0-9); NEUT # 4.8 x10^3uL (1.8-7.7); NEUT % 74 % (31-73); PLATELET COUNT 293 x10^3/uL (140-400); RED BLOOD COUNT 3.92 x10^6/uL (4.30-5.70); RED CELL DISTRIBUTION WIDTH 15.8 % (11.5-14.5); WHITE BLOOD COUNT 6.4 x10^3/uL (4.0-11.0)
[2018-08-12 07:00] VITALS: BP 157/88
[2018-08-12] MEDS: INSULIN LISPRO 300 UNITS/3 ML INSULN.PEN. SQ SCH ×6 (08:00→17:27)
[2018-08-12] MEDS: BUDESONIDE 0.5 MG/2 ML NEBU. NEB SCH ×2 (08:09→20:00)
--- NOTE | 2018-08-12 08:39 | PDOC ---
Provider Note Provider Note [id number] ae of copd, acute bronchitis agree w abx, steroid, BD SARAH VELASQUEZ MD Aug 12, 2018 08:39
[2018-08-12] MEDS: SENNOSIDES/DOCUSATE 8.6/50MG TABLET. PO SCH ×2 (09:00→21:00)
--- NOTE | 2018-08-12 09:01 | CONS ---
DATE OF CONSULTATION: 08/12/2018 REASON FOR CONSULTATION: I was asked to see this 77-year-old gentleman for acute exacerbation of COPD. HISTORY OF PRESENT ILLNESS: He has history of more than [id number] smoking, continues to smoke about half a pack per day. He has had increased shortness of breath, cough and wheezing for the past few days. He denies fever or chills. He has a runny nose, but denies gastroesophageal reflux symptoms. PAST MEDICAL HISTORY: Coronary artery disease, COPD, diabetes mellitus and hypertension. FAMILY HISTORY: Hypertension. ALLERGIES: LISINOPRIL. MEDICATIONS: Currently, he is on DuoNeb, Toprol XL, prednisone 50 mg daily, Cardizem, potassium, Plavix, aspirin, Norvasc, heparin 5000 units subQ every 8 hours, doxycycline, insulin, Pulmicort. REVIEW OF SYSTEMS: As mentioned above, other systems otherwise negative. PHYSICAL EXAMINATION: GENERAL: He is not in distress. VITAL SIGNS: His O2 saturation is 92%, respiratory rate 18, heart rate 63, blood pressure 157/88, temperature 97.8. HEENT: Normocephalic, atraumatic. Pupils equal, round, reactive to light. He has poor dentition. Nose is clear. NECK: There is no JVD, lymphadenopathy or thyromegaly. CARDIOVASCULAR: Regular rate and rhythm. PMI is nondisplaced. CHEST: Inspection is normal. LUNGS: There is end-expiratory wheezing, dullness at the bases. ABDOMEN: Soft. Bowel sounds are good. There is no mass. EXTREMITIES: There is no edema. LYMPHATICS: There is no lymphadenopathy. NEUROLOGIC: Alert and oriented. SKIN: Chronic changes. LYMPHATICS: There is no lymphadenopathy. LABORATORY DATA: I reviewed the following lab data: Chest x-ray shows COPD changes, no infiltrate. WBC 6.4, hemoglobin 10.5, platelets 293. Sodium 136, potassium 4.3, chloride 100, CO2 27, glucose 102, BUN 35, creatinine 1.3. Troponin less than 0.017. IMPRESSION: 1. Dyspnea, multifactorial in etiology including acute exacerbation of chronic obstructive pulmonary disease, acute bronchitis versus others. 2. Acute exacerbation of chronic obstructive pulmonary disease. 3. Acute bronchitis. 4. Diabetes mellitus. 5. Hypertension. 6. Coronary artery disease. 7. Tobacco habituation. PLAN AND RECOMMENDATIONS: 1. I had a long discussion with him regarding the smoking cessation. I have advised him to stop smoking forever. Different methods of quitting were discussed. 2. Continue prednisone, may start taper when his respiratory status has improved. 3. Continue doxycycline. 4. Heparin for DVT prophylaxis. 5. Monitor respiratory status very closely. 6. The findings and recommendations were discussed with the patient. He understood and agreed to proceed with the plan. I have answered all of his questions. Thank you very much for allowing me to participate in care of this very nice gentleman. I have discussed the findings and recommendation with him in details. He understood and agreed to proceed with the plan. SARAH VELASQUEZ M.D. : [facility] JOB#: [id number] / [id number]
[2018-08-12] MEDS: ASPIRIN CHEWABLE 81 MG TABLET. PO SCH (09:07)
[2018-08-12] MEDS: predniSONE 10 MG TABLET PO SCH (09:07)
[2018-08-12] MEDS: POTASSIUM CHLORIDE 10 MEQ TABLET.ER. PO SCH (09:07)
[2018-08-12] MEDS: LACTOBACILLUS RHAMNOSUS GG 1 CAPSULE. PO SCH ×2 (09:08→21:06)
[2018-08-12] MEDS: amLODIPine BESYLATE 10 MG TABLET PO SCH (09:08)
[2018-08-12] MEDS: METOPROLOL SUCC 24HR ER 25 MG TAB.ER.24H. PO SCH (09:08)
[2018-08-12] MEDS: CLOPIDOGREL BISULFATE 75 MG TABLET PO SCH (09:09)
[2018-08-12] MEDS: DOXYCYCLINE HYCLATE 100 MG in IV DEXTROSE 5% 100ML 100 ML IV SCH ×2 (09:10→21:06)
[2018-08-12] MEDS: ISOSORBIDE MONONITRATE ER 30 MG TAB.ER.24H PO SCH (09:10)
[2018-08-12] MEDS: INSULIN GLARGINE 300 UNITS/3 ML INSULN.PEN. SQ SCH (10:00)
[2018-08-12 11:00] VITALS: BP 147/81
[2018-08-12] MEDS: IPRATRPIUM/ALBUTEROL 0.5/2.5MG 3 ML NEBU. NEB SCH ×4 (11:58→20:00)
--- NOTE | 2018-08-12 11:58 | PDOC ---
PROGRESS NOTES History of Present Illness History of Present Illness VTE Prophylaxis Ordered VTE Prophylaxis Devices: No VTE Pharmacological Prophylaxi: Yes Assessment/Plan Assessment/Plan A/P: Acute COPD exacerbation with bronchitis - will give steroids, nebulizers, singulair CAD - cont meds Hypertension - suboptimal control Hyperlipidemia - cont meds H/O pulmonary embolism History of anemia - likely of CKD Osteoarthritis - tylenol for pain BASIM on chronic renal insufficiency - baseline cr 1.2-1.3, now 1.7, likely vasomotor nephropathy from poor PO intake from his COPD exacerbation Diabetes - sliding scale while on steroids Smoker - advised to quit, offered nicotine patch cognitive 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 FEN - ADA diet PPX - Heparin FULL CODE Inpatient for acute COPD exacerbation, may require 2 midnights pulm consult rx toprol xl 25 mg po daily 08/12 INC WHEEZES TODAY Vitals Vitals Vital Signs Date Time Temp Pulse Resp B/P (MAP) Pulse Ox O2 Delivery O2 Flow Rate FiO2 08/12/18 09:10 61 157/88 08/12/18 08:12 Room Air 08/12/18 07:00 99.2 18 88 99.2 Physical Exam General: Alert, Oriented X3, Cooperative, No acute distress, mild distress Heart: Regular rate, No murmurs Lungs: Clear, Wheezing (WORSE) Abdomen: Normal bowel sounds, Soft, No tenderness, No hepatosplenomegaly, No masses Extremities: No clubbing, No cyanosis, No edema, Normal pulses, No tenderness/ swelling Skin: No rashes, No breakdown, No significant lesion Labs LABS Laboratory Tests Test 08/11/18 16:46 08/11/18 21:00 08/12/18 05:00 08/12/18 08:03 Glucose (Fingerstick) 305 mg/dL (70-99) 139 mg/dL (70-99) 87 mg/dL (70-99) White Blood Count 6.4 x10^3/uL (4.0-11.0) Red Blood Count 3.92 x10^6/uL (4.30-5.70) Hemoglobin 10.5 g/dL (13.0-17.5) Hematocrit 32.0 % (39.0-53.0) Mean Corpuscular Volume 82 fL (79-100) Mean Corpuscular Hemoglobin 27 pg (25-35) Mean Corpuscular Hemoglobin Concent 33 g/dL (31-37) Red Cell Distribution Width 15.8 % (11.5-14.5) Platelet Count 293 x10^3/uL (140-400) Neutrophils (%) (Auto) 74 % (31-73) Lymphocytes (%) (Auto) 15 % (24-48) Monocytes (%) (Auto) 10 % (0-9) Eosinophils (%) (Auto) 1 % (0-3) Basophils (%) (Auto) 0 % (0-3) Neutrophils # (Auto) 4.8 x10^3uL (1.8-7.7) Lymphocytes # (Auto) 1.0 x10^3/uL (1.0-4.8) Monocytes # (Auto) 0.6 x10^3/uL (0.0-1.1) Eosinophils # (Auto) 0.0 x10^3/uL (0.0-0.7) Basophils # (Auto) 0.0 x10^3/uL (0.0-0.2) Assessment and Plan Assessmemt and Plan Problems Medical Problems: (1) COPD (chronic obstructive pulmonary disease) Status: Acute Comment Review of Relevant I have reviewed the following items valerie (where applicable) has been applied. Labs Laboratory Tests Test 08/10/18 14:23 08/10/18 17:38 08/10/18 19:40 08/10/18 20:34 White Blood Count 4.9 x10^3/uL (4.0-11.0) Red Blood Count 3.80 x10^6/uL (4.30-5.70) Hemoglobin 10.0 g/dL (13.0-17.5) Hematocrit 30.8 % (39.0-53.0) Mean Corpuscular Volume 81 fL (79-100) Mean Corpuscular Hemoglobin 26 pg (25-35) Mean Corpuscular Hemoglobin Concent 32 g/dL (31-37) Red Cell Distribution Width 15.8 % (11.5-14.5) Platelet Count 287 x10^3/uL (140-400) Neutrophils (%) (Auto) 72 % (31-73) Lymphocytes (%) (Auto) 15 % (24-48) Monocytes (%) (Auto) 9 % (0-9) Eosinophils (%) (Auto) 4 % (0-3) Basophils (%) (Auto) 1 % (0-3) Neutrophils # (Auto) 3.6 x10^3uL (1.8-7.7) Lymphocytes # (Auto) 0.7 x10^3/uL (1.0-4.8) Monocytes # (Auto) 0.4 x10^3/uL (0.0-1.1) Eosinophils # (Auto) 0.2 x10^3/uL (0.0-0.7) Basophils # (Auto) 0.0 x10^3/uL (0.0-0.2) Sodium Level 137 mmol/L (136-145) Potassium Level 4.2 mmol/L (3.5-5.1) Chloride Level 102 mmol/L (98-107) Carbon Dioxide Level 27 mmol/L (21-32) Anion Gap 8 (6-14) Blood Urea Nitrogen 40 mg/dL (8-26) Creatinine 1.7 mg/dL (0.7-1.3) Estimated GFR (Cockcroft-Gault) 47.8 Glucose Level 119 mg/dL (70-99) Calcium Level 9.3 mg/dL (8.5-10.1) Troponin I Quantitative < 0.017 ng/mL (0.000-0.055) < 0.017 ng/mL (0.000-0.055) Glucose (Fingerstick) 92 mg/dL (70-99) 375 mg/dL (70-99) D-Dimer (Lizbeth) 1.32 ug/mlFEU (0.00-0.50) Test 08/11/18 07:50 08/11/18 09:35 08/11/18 10:50 08/11/18 11:31 Glucose (Fingerstick) 89 mg/dL (70-99) 148 mg/dL (70-99) 93 mg/dL (70-99) Sodium Level 136 mmol/L (136-145) Potassium Level 4.3 mmol/L (3.5-5.1) Chloride Level 100 mmol/L (98-107) Carbon Dioxide Level 27 mmol/L (21-32) Anion Gap 9 (6-14) Blood Urea Nitrogen 35 mg/dL (8-26) Creatinine 1.3 mg/dL (0.7-1.3) Estimated GFR (Cockcroft-Gault) 65.1 Glucose Level 102 mg/dL (70-99) Calcium Level 8.9 mg/dL (8.5-10.1) Test 08/11/18 16:46 08/11/18 21:00 08/12/18 05:00 08/12/18 08:03 Glucose (Fingerstick) 305 mg/dL (70-99) 139 mg/dL (70-99) 87 mg/dL (70-99) White Blood Count 6.4 x10^3/uL (4.0-11.0) Red Blood Count 3.92 x10^6/uL (4.30-5.70) Hemoglobin 10.5 g/dL (13.0-17.5) Hematocrit 32.0 % (39.0-53.0) Mean Corpuscular Volume 82 fL (79-100) Mean Corpuscular Hemoglobin 27 pg (25-35) Mean Corpuscular Hemoglobin Concent 33 g/dL (31-37) Red Cell Distribution Width 15.8 % (11.5-14.5) Platelet Count 293 x10^3/uL (140-400) Neutrophils (%) (Auto) 74 % (31-73) Lymphocytes (%) (Auto) 15 % (24-48) Monocytes (%) (Auto) 10 % (0-9) Eosinophils (%) (Auto) 1 % (0-3) Basophils (%) (Auto) 0 % (0-3) Neutrophils # (Auto) 4.8 x10^3uL (1.8-7.7) Lymphocytes # (Auto) 1.0 x10^3/uL (1.0-4.8) Monocytes # (Auto) 0.6 x10^3/uL (0.0-1.1) Eosinophils # (Auto) 0.0 x10^3/uL (0.0-0.7) Basophils # (Auto) 0.0 x10^3/uL (0.0-0.2) Laboratory Tests Test 08/11/18 16:46 08/11/18 21:00 08/12/18 05:00 08/12/18 08:03 Glucose (Fingerstick) 305 mg/dL (70-99) 139 mg/dL (70-99) 87 mg/dL (70-99) White Blood Count 6.4 x10^3/uL (4.0-11.0) Red Blood Count 3.92 x10^6/uL (4.30-5.70) Hemoglobin 10.5 g/dL (13.0-17.5) Hematocrit 32.0 % (39.0-53.0) Mean Corpuscular Volume 82 fL (79-100) Mean Corpuscular Hemoglobin 27 pg (25-35) Mean Corpuscular Hemoglobin Concent 33 g/dL (31-37) Red Cell Distribution Width 15.8 % (11.5-14.5) Platelet Count 293 x10^3/uL (140-400) Neutrophils (%) (Auto) 74 % (31-73) Lymphocytes (%) (Auto) 15 % (24-48) Monocytes (%) (Auto) 10 % (0-9) Eosinophils (%) (Auto) 1 % (0-3) Basophils (%) (Auto) 0 % (0-3) Neutrophils # (Auto) 4.8 x10^3uL (1.8-7.7) Lymphocytes # (Auto) 1.0 x10^3/uL (1.0-4.8) Monocytes # (Auto) 0.6 x10^3/uL (0.0-1.1) Eosinophils # (Auto) 0.0 x10^3/uL (0.0-0.7) Basophils # (Auto) 0.0 x10^3/uL (0.0-0.2) Microbiology 08/11/18 - Final, Resulted 08/11/18 - Final, Resulted 08/11/18 - Final, Resulted 08/11/18 - Final, Resulted 08/11/18 Gram Stain Evaluation - Final, Resulted 08/11/18 Sputum Culture - Preliminary, Resulted 08/11/18 Sputum Result 1 - Final, Resulted Medications Current Medications Albuterol/ Ipratropium (Duoneb) 3 ml 1X ONCE NEB Last administered on at 14:29; Start 08/10/18 at 14:15; Stop 08/10/18 at 14:18; Status DC Methylprednisolone Sodium Succinate (SOLU-Medrol 125MG VIAL) 60 mg 1X ONCE IV Last administered on 08/10/18 14:54; Start 08/10/18 at 14:15; Stop 08/10/18 at 14:18; Status DC Albuterol/ Ipratropium (Duoneb) 3 ml 1X ONCE NEB Last administered on at 15:23; Start 08/10/18 at 15:15; Stop 08/10/18 at 15:18; Status DC Albuterol/ Ipratropium (Duoneb) 3 ml RTQID NEB Last administered on 08/11/18at 15:32; Start 08/10/18 at 20:00; Stop 08/11/18 at 19:59; Status DC Albuterol Sulfate (Ventolin Neb Soln) 2.5 mg PRN Q4HRS PRN NEB WHEEZING Last administered on 08/12/18 04:48; Start 08/10/18 at 17:00 Amlodipine Besylate (Norvasc) 10 mg DAILY PO Last administered on 08/12/18 09: 08; Start 08/11/18 at 09:00 Aspirin (Children'S Aspirin) 81 mg DAILY PO Last administered on 08/12/18 09: 07; Start 08/11/18 at 09:00 Atorvastatin Calcium (Lipitor) 40 mg HS PO Last administered on 08/11/18at 20:50 ; Start 08/10/18 at 21:00 Clopidogrel Bisulfate (Plavix) 75 mg DAILY PO Last administered on 08/12/18 09 :09; Start 08/11/18 at 09:00 Insulin Glargine (Lantus) 30 units BID SQ Last administered on 08/11/18at 09:45 ; Start 08/10/18 at 21:00; Stop 08/12/18 at 10:02; Status DC Insulin Human Lispro (HumaLOG) 20 units TIDWMEALS SQ Last administered on at 17:25; Start 08/10/18 at 17:00 Nitroglycerin (Nitrostat) 0.4 mg PRN Q5MIN PRN SL CHEST PAIN; Start 08/10/18 at 17:00 Potassium Chloride (Klor-Con) 10 meq DAILY PO Last administered on 08/12/18at 09 :07; Start 08/11/18 at 09:00 Diltiazem HCl (Cardizem 24hr Cd) 240 mg DAILY PO Last administered on 09:09; Start 08/11/18 at 09:00 Doxycycline Hyclate (Vibra-Tab) 100 mg BID PO ; Start 08/10/18 at 21:00; Status Cancel Isosorbide Mononitrate (Imdur) 120 mg DAILY PO Last administered on 08/12/18at 09:10; Start 08/11/18 at 09:00 Non-Formulary Medication (Prednisone ) 1 tab DAILY PO ; Start 08/11/18 at 09:00 ; Status UNV Budesonide (Pulmicort) 0.5 mg RTBID NEB Last administered on 08/12/18 08:09; Start 08/10/18 at 20:00 Ondansetron HCl (Zofran) 4 mg PRN Q6HRS PRN IV NAUSEA/VOMITING; Start 08/10/18 at 17:00 Acetaminophen/ Hydrocodone Bitart (Lortab 5/325) 1 tab PRN Q4HRS PRN PO MILD PAIN; Start 08/10/18 at 17:00 Acetaminophen (Tylenol) 650 mg PRN Q6HRS PRN PO Headaches, Temp > 101.5F; Start 08/10/18 at 17:00 Senna/Docusate Sodium (Senna Plus) 1 tab BID PO Last administered on 08/11/18at 08:14; Start 08/10/18 at 21:00 Lactulose (Lactulose) 20 gm PRN Q12HR PRN PO CONSTIPATION; Start 08/10/18 at 17 :00 Heparin Sodium (Porcine) (Heparin Sodium) 5,000 unit Q8HRS SQ Last administered on 08/12/18at 05:28; Start 08/10/18 at 22:00 Insulin Human Lispro (HumaLOG) 0-7 UNITS TIDWMEALS SQ Last administered on 08/11at 17:26; Start 08/10/18 at 17:00 Dextrose (Dextrose 50%-Water Syringe) 12.5 gm PRN Q15MIN PRN IV SEE COMMENTS; Start 08/10/18 at 17:00 Doxycycline Hyclate 100 mg/ Dextrose 100 ml @ 50 mls/hr Q12HR IV Last administered on 08/12/18at 09:10; Start 08/10/18 at 21:00 Prednisone (Prednisone) 50 mg DAILY PO Last administered on 08/12/18at 09:07; Start 08/11/18 at 09:00 Metoprolol Succinate (Toprol Xl) 25 mg DAILY PO Last administered on 08/12/18at 09:08; Start 08/11/18 at 13:00 Lactobacillus Rhamnosus (Culturelle) 1 cap BID PO Last administered on at 09:08; Start 08/11/18 at 21:00 Albuterol/ Ipratropium (Duoneb) 3 ml RTQID NEB ; Start 08/12/18 at 09:00 Insulin Glargine (Lantus) 20 units DAILY SQ ; Start 08/12/18 at 10:00 Active Scripts Active Proair Hfa Inhaler (Albuterol Sulfate) 8.5 Gm Hfa.aer.ad 1 Puff INH PRN Q6HRS PRN Albuterol Sulfate Neb Soln (Albuterol Sulfate) 2.5 Mg/3 Ml Vial.neb 1 Vial NEB PRN Q4HRS PRN Naproxen 375 Mg Tablet 1 Tab PO BID PRN Prednisone 50 Mg Tablet 1 Tab PO DAILY Levaquin (Levofloxacin) 500 Mg Tablet 1 Tab PO DAILY Doxycycline Hyclate 100 Mg Capsule 1 Cap PO BID Prednisone 50 Mg Tablet 1 Tab PO DAILY Keflex (Cephalexin) 500 Mg Capsule 1 Cap PO TID Azithromycin Tablet (Azithromycin) 250 Mg Tablet 250 Mg PO DAILY Humalog (Insulin Lispro) 100 Unit/1 Ml Insuln.pen 20 Units SQ TIDWMEALS 30 Days Lantus Solostar (Insulin Glargine,Hum.rec.anlog) 100 Unit/1 Ml Insuln.pen 30 Units SQ BID 28 Days Lasix (Furosemide) 40 Mg Tablet 1 Tab PO DAILY Plavix (Clopidogrel Bisulfate) 75 Mg Tablet 1 Tab PO DAILY Reported Aspirin 81 Mg Tab.chew 1 Tab PO DAILY Potassium Chloride 10 Meq Tab.sr.24h 10 Meq PO DAILY Amlodipine Besylate 10 Mg Tablet 10 Mg PO DAILY Isosorbide Mononitrate Er (Isosorbide Mononitrate) 120 Mg Tab.er.24h 120 Mg PO DAILY Diltiazem 24HR Cd (Diltiazem Hcl) 240 Mg Cap.er.24h 240 Mg PO DAILY NITROGLYCERIN SubLingual (Nitroglycerin) 0.4 Mg Tab.subl 0.4 Mg SL PRN Q5MIN PRN Atorvastatin Calcium 40 Mg Tablet 40 Mg PO HS Vitals/I & O Vital Sign - Last 24 Hours 08/11/18 08/11/18 08/11/18 08/11/18 13:56 15:00 15:32 19:00 Temp 97.8 97.9 97.8 97.9 Pulse 68 70 74 Resp 20 20 B/P (MAP) 157/89 143/77 (99) 162/94 (116) Pulse Ox 91 90 91 O2 Delivery Room Air Room Air Room Air 08/11/18 08/11/18 08/11/18 08/12/18 19:43 20:00 23:00 03:00 Temp 98.0 97.8 98.0 97.8 Pulse 72 63 Resp 20 20 B/P (MAP) 152/95 (114) 167/97 (120) Pulse Ox 100 93 92 O2 Delivery Room Air Room Air Room Air Room Air 08/12/18 08/12/18 08/12/18 08/12/18 04:48 07:00 08:11 08:12 Temp 99.2 99.2 Pulse 61 Resp 18 B/P (MAP) 157/88 (111) Pulse Ox 88 O2 Delivery Room Air Room Air Room Air Room Air 08/12/18 08/12/18 08/12/18 08/12/18 09:08 09:08 09:09 09:10 Pulse 61 61 61 61 B/P (MAP) 157/88 157/88 157/88 157/88 Intake and Output 08/11/18 08/11/18 08/12/18 15:00 23:00 07:00 Intake Total 540 ml 240 ml 540 ml Balance 540 ml 240 ml 540 ml SUDHIR JARVIS MD Aug 12, 2018 11:58
[2018-08-12 12:30] LABS: CREATININE 1.2 mg/dL (0.7-1.3); GFR 71.4; POTASSIUM 4.2 mmol/L (3.5-5.1)
[2018-08-12 15:00] VITALS: BP 133/66
[2018-08-12 19:30] VITALS: BP 153/60
[2018-08-12] MEDS: ATORVASTATIN CALCIUM 40 MG TABLET. PO SCH (21:06)
[2018-08-12 23:05] VITALS: BP 178/79
[2018-08-13 03:40] VITALS: BP 147/86
[2018-08-13] MEDS: HEPARIN for SUB-Q USE 5,000 UNIT/ML VIAL. SQ SCH ×3 (06:23→21:34)
[2018-08-13 07:00] VITALS: BP 171/81
[2018-08-13] MEDS: IPRATRPIUM/ALBUTEROL 0.5/2.5MG 3 ML NEBU. NEB SCH ×4 (07:13→21:20)
[2018-08-13] MEDS: BUDESONIDE 0.5 MG/2 ML NEBU. NEB SCH ×2 (07:16→21:14)
[2018-08-13] MEDS: INSULIN LISPRO 300 UNITS/3 ML INSULN.PEN. SQ SCH ×6 (08:00→17:51)
--- NOTE | 2018-08-13 08:32 | PDOC ---
PULMONARY PROGRESS NOTES Subjective sob slightly better, cough better, no pain Vitals Vital Signs Date Time Temp Pulse Resp B/P (MAP) Pulse Ox O2 Delivery O2 Flow Rate FiO2 08/13/18 07:16 96 Room Air 08/13/18 03:40 98.0 63 16 147/86 (106) 98.0 ROS: No Nausea General: Alert, No acute distress HEENT: Other (nc at perrl) Lungs: Other (a few end exp wheezing) Cardiovascular: S1, S2 Abdomen: Soft, Non-tender, Other Neuro Exam: Alert Extremities: No Edema Skin: Warm Labs Laboratory Tests Test 08/11/18 09:35 08/11/18 10:50 08/11/18 11:31 08/11/18 16:46 Glucose (Fingerstick) 148 mg/dL (70-99) 93 mg/dL (70-99) 305 mg/dL (70-99) Sodium Level 136 mmol/L (136-145) Potassium Level 4.3 mmol/L (3.5-5.1) Chloride Level 100 mmol/L (98-107) Carbon Dioxide Level 27 mmol/L (21-32) Anion Gap 9 (6-14) Blood Urea Nitrogen 35 mg/dL (8-26) Creatinine 1.3 mg/dL (0.7-1.3) Estimated GFR (Cockcroft-Gault) 65.1 Glucose Level 102 mg/dL (70-99) Calcium Level 8.9 mg/dL (8.5-10.1) Test 08/11/18 21:00 08/12/18 05:00 08/12/18 08:03 08/12/18 11:55 Glucose (Fingerstick) 139 mg/dL (70-99) 87 mg/dL (70-99) 104 mg/dL (70-99) White Blood Count 6.4 x10^3/uL (4.0-11.0) Red Blood Count 3.92 x10^6/uL (4.30-5.70) Hemoglobin 10.5 g/dL (13.0-17.5) Hematocrit 32.0 % (39.0-53.0) Mean Corpuscular Volume 82 fL (79-100) Mean Corpuscular Hemoglobin 27 pg (25-35) Mean Corpuscular Hemoglobin Concent 33 g/dL (31-37) Red Cell Distribution Width 15.8 % (11.5-14.5) Platelet Count 293 x10^3/uL (140-400) Neutrophils (%) (Auto) 74 % (31-73) Lymphocytes (%) (Auto) 15 % (24-48) Monocytes (%) (Auto) 10 % (0-9) Eosinophils (%) (Auto) 1 % (0-3) Basophils (%) (Auto) 0 % (0-3) Neutrophils # (Auto) 4.8 x10^3uL (1.8-7.7) Lymphocytes # (Auto) 1.0 x10^3/uL (1.0-4.8) Monocytes # (Auto) 0.6 x10^3/uL (0.0-1.1) Eosinophils # (Auto) 0.0 x10^3/uL (0.0-0.7) Basophils # (Auto) 0.0 x10^3/uL (0.0-0.2) Sodium Level 135 mmol/L (136-145) Potassium Level 4.2 mmol/L (3.5-5.1) Chloride Level 100 mmol/L (98-107) Carbon Dioxide Level 25 mmol/L (21-32) Anion Gap 10 (6-14) Blood Urea Nitrogen 34 mg/dL (8-26) Creatinine 1.2 mg/dL (0.7-1.3) Estimated GFR (Cockcroft-Gault) 71.4 Glucose Level 66 mg/dL (70-99) Calcium Level 9.0 mg/dL (8.5-10.1) Test 08/12/18 16:44 08/12/18 20:57 Glucose (Fingerstick) 312 mg/dL (70-99) 306 mg/dL (70-99) Laboratory Tests Test 08/12/18 11:55 08/12/18 16:44 08/12/18 20:57 Glucose (Fingerstick) 104 mg/dL (70-99) 312 mg/dL (70-99) 306 mg/dL (70-99) Medications Active Scripts Medications Dose Route/Sig Max Daily Dose Days Date Category Proair Hfa Inhaler (Albuterol Sulfate) 8.5 Gm Hfa.aer.ad 1 Puff INH PRN Q6HRS PRN 08/01/18 Rx Albuterol Sulfate Neb Soln (Albuterol Sulfate) 2.5 Mg/3 Ml Vial.neb 1 Vial NEB PRN Q4HRS PRN 08/01/18 Rx Naproxen 375 Mg Tablet 1 Tab PO BID PRN 08/01/18 Rx Prednisone 50 Mg Tablet 1 Tab PO DAILY 05/29/18 Rx Levaquin (Levofloxacin) 500 Mg Tablet 1 Tab PO DAILY 05/29/18 Rx Doxycycline Hyclate 100 Mg Capsule 1 Cap PO BID 02/07/18 Rx Prednisone 50 Mg Tablet 1 Tab PO DAILY 02/07/18 Rx Keflex (Cephalexin) 500 Mg Capsule 1 Cap PO TID 02/06/18 Rx Azithromycin Tablet (Azithromycin) 250 Mg Tablet 250 Mg PO DAILY 12/02/17 Rx Aspirin 81 Mg Tab.chew 1 Tab PO DAILY 12/01/17 Reported Potassium Chloride 10 Meq Tab.sr.24h 10 Meq PO DAILY 12/01/17 Reported Amlodipine Besylate 10 Mg Tablet 10 Mg PO DAILY 12/01/17 Reported Humalog (Insulin Lispro) 100 Unit/1 Ml Insuln.pen 20 Units SQ TIDWMEALS 30 10/12/17 Rx Lantus Solostar (Insulin Glargine,Hum.rec.anlog) 100 Unit/1 Ml Insuln.pen 30 Units SQ BID 28 10/12/17 Rx Lasix (Furosemide) 40 Mg Tablet 1 Tab PO DAILY 10/07/16 Rx Plavix (Clopidogrel Bisulfate) 75 Mg Tablet 1 Tab PO DAILY 10/07/16 Rx Isosorbide Mononitrate Er (Isosorbide Mononitrate) 120 Mg Tab.er.24h 120 Mg PO DAILY 06/21/16 Reported Diltiazem 24HR Cd (Diltiazem Hcl) 240 Mg Cap.er.24h 240 Mg PO DAILY 11/18/15 Reported NITROGLYCERIN SubLingual (Nitroglycerin) 0.4 Mg Tab.subl 0.4 Mg SL PRN Q5MIN PRN 11/18/15 Reported Atorvastatin Calcium 40 Mg Tablet 40 Mg PO HS 11/18/15 Reported Impression . IMPRESSION: 1. Dyspnea, multifactorial in etiology including acute exacerbation of chronic obstructive pulmonary disease, acute bronchitis versus others. 2. Acute exacerbation of chronic obstructive pulmonary disease. 3. Acute bronchitis. 4. Diabetes mellitus. 5. Hypertension. 6. Coronary artery disease. 7. Tobacco habituation. Plan . PLAN AND RECOMMENDATIONS: 1. I had a long discussion with him regarding the smoking cessation. I have advised him to stop smoking forever. Different methods of quitting were discussed. 2. Continue prednisone, may start taper when his respiratory status has improved. 3. Continue doxycycline. 4. Heparin for DVT prophylaxis. 5. discussed w SARAH Barraza MD Aug 13, 2018 08:32
[2018-08-13] MEDS: DOXYCYCLINE HYCLATE 100 MG in IV DEXTROSE 5% 100ML 100 ML IV SCH ×2 (08:51→21:25)
[2018-08-13] MEDS: amLODIPine BESYLATE 10 MG TABLET PO SCH (08:52)
[2018-08-13] MEDS: ISOSORBIDE MONONITRATE ER 30 MG TAB.ER.24H PO SCH (08:52)
[2018-08-13] MEDS: CLOPIDOGREL BISULFATE 75 MG TABLET PO SCH (08:52)
[2018-08-13] MEDS: POTASSIUM CHLORIDE 10 MEQ TABLET.ER. PO SCH (08:52)
[2018-08-13] MEDS: LACTOBACILLUS RHAMNOSUS GG 1 CAPSULE. PO SCH ×2 (08:52→21:25)
[2018-08-13] MEDS: ASPIRIN CHEWABLE 81 MG TABLET. PO SCH (08:52)
[2018-08-13] MEDS: predniSONE 10 MG TABLET PO SCH (08:53)
[2018-08-13] MEDS: SENNOSIDES/DOCUSATE 8.6/50MG TABLET. PO SCH ×2 (09:00→21:00)
[2018-08-13] MEDS: INSULIN GLARGINE 300 UNITS/3 ML INSULN.PEN. SQ SCH (09:00)
[2018-08-13] MEDS: METOPROLOL SUCC 24HR ER 25 MG TAB.ER.24H. PO SCH (09:00)
--- NOTE | 2018-08-13 09:37 | PDOC ---
PROGRESS NOTES History of Present Illness History of Present Illness VTE Prophylaxis Ordered VTE Prophylaxis Devices: No VTE Pharmacological Prophylaxi: Yes Assessment/Plan Assessment/Plan A/P: Acute COPD exacerbation with bronchitis - will give steroids, nebulizers, singulair CAD - cont meds Hypertension - suboptimal control Hyperlipidemia - cont meds H/O pulmonary embolism History of anemia - likely of CKD, NORMOCYTIC Osteoarthritis - tylenol for pain BASIM on chronic renal insufficiency - baseline cr 1.2-1.3, now 1.2, likely vasomotor nephropathy from poor PO intake from his COPD exacerbation Diabetes - sliding scale while on steroids Smoker - advised to quit, offered nicotine patch cognitive 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 FEN - ADA diet PPX - Heparin FULL CODE Inpatient for acute COPD exacerbation, may require 2 midnights pulm consult rx toprol xl 25 mg po daily 08/12 INC WHEEZES TODAY 08/13 WHEEZING SLOW TO IMPROVE Vitals Vitals Vital Signs Date Time Temp Pulse Resp B/P (MAP) Pulse Ox O2 Delivery O2 Flow Rate FiO2 08/13/18 08:52 53 171/81 08/13/18 07:16 96 Room Air 08/13/18 07:00 97.9 16 97.9 Physical Exam General: Alert, Oriented X3, Cooperative, No acute distress, mild distress Heart: Regular rate, No murmurs Lungs: Wheezing, Other (a few end exp wheezing) Abdomen: Normal bowel sounds, Soft, No tenderness, No hepatosplenomegaly, No masses Extremities: No clubbing, No cyanosis, No edema, Normal pulses, No tenderness/ swelling Skin: No rashes, No breakdown, No significant lesion Labs LABS Laboratory Tests Test 08/12/18 11:55 08/12/18 16:44 08/12/18 20:57 08/13/18 08:33 Glucose (Fingerstick) 104 mg/dL (70-99) 312 mg/dL (70-99) 306 mg/dL (70-99) 142 mg/dL (70-99) Assessment and Plan Assessmemt and Plan Problems Medical Problems: (1) COPD (chronic obstructive pulmonary disease) Status: Acute Comment Review of Relevant I have reviewed the following items valerie (where applicable) has been applied. Labs Laboratory Tests Test 08/11/18 10:50 08/11/18 11:31 08/11/18 16:46 08/11/18 21:00 Sodium Level 136 mmol/L (136-145) Potassium Level 4.3 mmol/L (3.5-5.1) Chloride Level 100 mmol/L (98-107) Carbon Dioxide Level 27 mmol/L (21-32) Anion Gap 9 (6-14) Blood Urea Nitrogen 35 mg/dL (8-26) Creatinine 1.3 mg/dL (0.7-1.3) Estimated GFR (Cockcroft-Gault) 65.1 Glucose Level 102 mg/dL (70-99) Calcium Level 8.9 mg/dL (8.5-10.1) Glucose (Fingerstick) 93 mg/dL (70-99) 305 mg/dL (70-99) 139 mg/dL (70-99) Test 08/12/18 05:00 08/12/18 08:03 08/12/18 11:55 08/12/18 16:44 White Blood Count 6.4 x10^3/uL (4.0-11.0) Red Blood Count 3.92 x10^6/uL (4.30-5.70) Hemoglobin 10.5 g/dL (13.0-17.5) Hematocrit 32.0 % (39.0-53.0) Mean Corpuscular Volume 82 fL (79-100) Mean Corpuscular Hemoglobin 27 pg (25-35) Mean Corpuscular Hemoglobin Concent 33 g/dL (31-37) Red Cell Distribution Width 15.8 % (11.5-14.5) Platelet Count 293 x10^3/uL (140-400) Neutrophils (%) (Auto) 74 % (31-73) Lymphocytes (%) (Auto) 15 % (24-48) Monocytes (%) (Auto) 10 % (0-9) Eosinophils (%) (Auto) 1 % (0-3) Basophils (%) (Auto) 0 % (0-3) Neutrophils # (Auto) 4.8 x10^3uL (1.8-7.7) Lymphocytes # (Auto) 1.0 x10^3/uL (1.0-4.8) Monocytes # (Auto) 0.6 x10^3/uL (0.0-1.1) Eosinophils # (Auto) 0.0 x10^3/uL (0.0-0.7) Basophils # (Auto) 0.0 x10^3/uL (0.0-0.2) Sodium Level 135 mmol/L (136-145) Potassium Level 4.2 mmol/L (3.5-5.1) Chloride Level 100 mmol/L (98-107) Carbon Dioxide Level 25 mmol/L (21-32) Anion Gap 10 (6-14) Blood Urea Nitrogen 34 mg/dL (8-26) Creatinine 1.2 mg/dL (0.7-1.3) Estimated GFR (Cockcroft-Gault) 71.4 Glucose Level 66 mg/dL (70-99) Calcium Level 9.0 mg/dL (8.5-10.1) Glucose (Fingerstick) 87 mg/dL (70-99) 104 mg/dL (70-99) 312 mg/dL (70-99) Test 08/12/18 20:57 08/13/18 08:33 Glucose (Fingerstick) 306 mg/dL (70-99) 142 mg/dL (70-99) Laboratory Tests Test 08/12/18 11:55 08/12/18 16:44 08/12/18 20:57 08/13/18 08:33 Glucose (Fingerstick) 104 mg/dL (70-99) 312 mg/dL (70-99) 306 mg/dL (70-99) 142 mg/dL (70-99) Microbiology 08/11/18 - Final, Resulted 08/11/18 - Final, Resulted 08/11/18 - Final, Resulted 08/11/18 - Final, Resulted 08/11/18 Gram Stain Evaluation - Final, Resulted 08/11/18 Sputum Culture - Preliminary, Resulted 08/11/18 Sputum Result 1 - Final, Resulted Medications Current Medications Albuterol/ Ipratropium (Duoneb) 3 ml 1X ONCE NEB Last administered on at 14:29; Start 08/10/18 at 14:15; Stop 08/10/18 at 14:18; Status DC Methylprednisolone Sodium Succinate (SOLU-Medrol 125MG VIAL) 60 mg 1X ONCE IV Last administered on 08/10/18at 14:54; Start 08/10/18 at 14:15; Stop 08/10/18 at 14:18; Status DC Albuterol/ Ipratropium (Duoneb) 3 ml 1X ONCE NEB Last administered on 15:23; Start 08/10/18 at 15:15; Stop 08/10/18 at 15:18; Status DC Albuterol/ Ipratropium (Duoneb) 3 ml RTQID NEB Last administered on 08/11/18at 15:32; Start 08/10/18 at 20:00; Stop 08/11/18 at 19:59; Status DC Albuterol Sulfate (Ventolin Neb Soln) 2.5 mg PRN Q4HRS PRN NEB WHEEZING Last administered on 08/12/18 04:48; Start 08/10/18 at 17:00 Amlodipine Besylate (Norvasc) 10 mg DAILY PO Last administered on 08/13/18 08: 52; Start 08/11/18 at 09:00 Aspirin (Children'S Aspirin) 81 mg DAILY PO Last administered on 08/13/18 08: 52; Start 08/11/18 at 09:00 Atorvastatin Calcium (Lipitor) 40 mg HS PO Last administered on 08/12/18at 21:06 ; Start 08/10/18 at 21:00 Clopidogrel Bisulfate (Plavix) 75 mg DAILY PO Last administered on 08/13/18 08 :52; Start 08/11/18 at 09:00 Insulin Glargine (Lantus) 30 units BID SQ Last administered on 08/11/18at 09:45 ; Start 08/10/18 at 21:00; Stop 08/12/18 at 10:02; Status DC Insulin Human Lispro (HumaLOG) 20 units TIDWMEALS SQ Last administered on at 17:27; Start 08/10/18 at 17:00 Nitroglycerin (Nitrostat) 0.4 mg PRN Q5MIN PRN SL CHEST PAIN; Start 08/10/18 at 17:00 Potassium Chloride (Klor-Con) 10 meq DAILY PO Last administered on 08/13/18at 08 :52; Start 08/11/18 at 09:00 Diltiazem HCl (Cardizem 24hr Cd) 240 mg DAILY PO Last administered on at 09:09; Start 08/11/18 at 09:00 Doxycycline Hyclate (Vibra-Tab) 100 mg BID PO ; Start 08/10/18 at 21:00; Status Cancel Isosorbide Mononitrate (Imdur) 120 mg DAILY PO Last administered on 08/13/18at 08:52; Start 08/11/18 at 09:00 Non-Formulary Medication (Prednisone ) 1 tab DAILY PO ; Start 08/11/18 at 09:00 ; Status UNV Budesonide (Pulmicort) 0.5 mg RTBID NEB Last administered on 08/13/18at 07:16; Start 08/10/18 at 20:00 Ondansetron HCl (Zofran) 4 mg PRN Q6HRS PRN IV NAUSEA/VOMITING; Start 08/10/18 at 17:00 Acetaminophen/ Hydrocodone Bitart (Lortab 5/325) 1 tab PRN Q4HRS PRN PO MILD PAIN; Start 08/10/18 at 17:00 Acetaminophen (Tylenol) 650 mg PRN Q6HRS PRN PO Headaches, Temp > 101.5F; Start 08/10/18 at 17:00 Senna/Docusate Sodium (Senna Plus) 1 tab BID PO Last administered on 08/11/18 08:14; Start 08/10/18 at 21:00 Lactulose (Lactulose) 20 gm PRN Q12HR PRN PO CONSTIPATION; Start 08/10/18 at 17 :00 Heparin Sodium (Porcine) (Heparin Sodium) 5,000 unit Q8HRS SQ Last administered on 08/13/18at 06:23; Start 08/10/18 at 22:00 Insulin Human Lispro (HumaLOG) 0-7 UNITS TIDWMEALS SQ Last administered on 08/11at 17:26; Start 08/10/18 at 17:00 Dextrose (Dextrose 50%-Water Syringe) 12.5 gm PRN Q15MIN PRN IV SEE COMMENTS; Start 08/10/18 at 17:00 Doxycycline Hyclate 100 mg/ Dextrose 100 ml @ 50 mls/hr Q12HR IV Last administered on 08/13/18at 08:51; Start 08/10/18 at 21:00 Prednisone (Prednisone) 50 mg DAILY PO Last administered on 08/13/18at 08:53; Start 08/11/18 at 09:00 Metoprolol Succinate (Toprol Xl) 25 mg DAILY PO Last administered on 08/12/18at 09:08; Start 08/11/18 at 13:00 Lactobacillus Rhamnosus (Culturelle) 1 cap BID PO Last administered on at 08:52; Start 08/11/18 at 21:00 Albuterol/ Ipratropium (Duoneb) 3 ml RTQID NEB Last administered on 08/13/18at 07:13; Start 08/12/18 at 09:00 Insulin Glargine (Lantus) 20 units DAILY SQ ; Start 08/12/18 at 10:00 Active Scripts Active Proair Hfa Inhaler (Albuterol Sulfate) 8.5 Gm Hfa.aer.ad 1 Puff INH PRN Q6HRS PRN Albuterol Sulfate Neb Soln (Albuterol Sulfate) 2.5 Mg/3 Ml Vial.neb 1 Vial NEB PRN Q4HRS PRN Naproxen 375 Mg Tablet 1 Tab PO BID PRN Prednisone 50 Mg Tablet 1 Tab PO DAILY Levaquin (Levofloxacin) 500 Mg Tablet 1 Tab PO DAILY Doxycycline Hyclate 100 Mg Capsule 1 Cap PO BID Prednisone 50 Mg Tablet 1 Tab PO DAILY Keflex (Cephalexin) 500 Mg Capsule 1 Cap PO TID Azithromycin Tablet (Azithromycin) 250 Mg Tablet 250 Mg PO DAILY Humalog (Insulin Lispro) 100 Unit/1 Ml Insuln.pen 20 Units SQ TIDWMEALS 30 Days Lantus Solostar (Insulin Glargine,Hum.rec.anlog) 100 Unit/1 Ml Insuln.pen 30 Units SQ BID 28 Days Lasix (Furosemide) 40 Mg Tablet 1 Tab PO DAILY Plavix (Clopidogrel Bisulfate) 75 Mg Tablet 1 Tab PO DAILY Reported Aspirin 81 Mg Tab.chew 1 Tab PO DAILY Potassium Chloride 10 Meq Tab.sr.24h 10 Meq PO DAILY Amlodipine Besylate 10 Mg Tablet 10 Mg PO DAILY Isosorbide Mononitrate Er (Isosorbide Mononitrate) 120 Mg Tab.er.24h 120 Mg PO DAILY Diltiazem 24HR Cd (Diltiazem Hcl) 240 Mg Cap.er.24h 240 Mg PO DAILY NITROGLYCERIN SubLingual (Nitroglycerin) 0.4 Mg Tab.subl 0.4 Mg SL PRN Q5MIN PRN Atorvastatin Calcium 40 Mg Tablet 40 Mg PO HS Vitals/I & O Vital Sign - Last 24 Hours 08/12/18 08/12/18 08/12/18 08/12/18 11:00 11:59 15:00 15:57 Temp 97.8 98.1 97.8 98.1 Pulse 51 57 Resp 20 20 B/P (MAP) 147/81 (103) 133/66 (88) Pulse Ox 97 90 93 O2 Delivery Room Air Room Air Room Air Room Air 08/12/18 08/12/18 08/12/18 08/12/18 19:30 19:43 20:00 23:05 Temp 97.5 98.4 97.5 98.4 Pulse 60 72 Resp 20 20 B/P (MAP) 153/60 (91) 178/79 (112) Pulse Ox 95 93 92 O2 Delivery Room Air Room Air Room Air Room Air 08/13/18 08/13/18 08/13/18 08/13/18 03:40 07:00 07:15 07:16 Temp 98.0 97.9 98.0 97.9 Pulse 63 53 Resp 16 16 B/P (MAP) 147/86 (106) 171/81 (111) Pulse Ox 93 94 96 96 O2 Delivery Room Air Room Air Room Air Room Air 08/13/18 08/13/18 08:52 08:52 Pulse 53 53 B/P (MAP) 171/81 171/81 Intake and Output 08/12/18 08/12/18 08/13/18 14:59 22:59 06:59 Intake Total 810 ml Balance 810 ml SUDHIR JARVIS MD Aug 13, 2018 09:37
[2018-08-13 11:00] VITALS: BP 184/67
[2018-08-13 15:00] VITALS: BP 123/58
[2018-08-13 19:37] VITALS: BP 163/79
[2018-08-13] MEDS: ATORVASTATIN CALCIUM 40 MG TABLET. PO SCH (21:25)
[2018-08-13 23:55] VITALS: BP 153/94
[2018-08-14 03:53] VITALS: BP 174/52
[2018-08-14] MEDS: HEPARIN for SUB-Q USE 5,000 UNIT/ML VIAL. SQ SCH ×2 (05:41→14:26)
[2018-08-14 07:00] VITALS: BP 165/84
[2018-08-14] MEDS: IPRATRPIUM/ALBUTEROL 0.5/2.5MG 3 ML NEBU. NEB SCH ×3 (07:14→15:42)
[2018-08-14] MEDS: BUDESONIDE 0.5 MG/2 ML NEBU. NEB SCH (07:15)
[2018-08-14] MEDS: INSULIN LISPRO 300 UNITS/3 ML INSULN.PEN. SQ SCH ×4 (08:00→12:15)
[2018-08-14] MEDS: INSULIN GLARGINE 300 UNITS/3 ML INSULN.PEN. SQ SCH (09:00)
[2018-08-14] MEDS: CLOPIDOGREL BISULFATE 75 MG TABLET PO SCH (09:59)
[2018-08-14] MEDS: SENNOSIDES/DOCUSATE 8.6/50MG TABLET. PO SCH (09:59)
[2018-08-14] MEDS: predniSONE 10 MG TABLET PO SCH (10:00)
[2018-08-14] MEDS: LACTOBACILLUS RHAMNOSUS GG 1 CAPSULE. PO SCH (10:00)
[2018-08-14] MEDS: amLODIPine BESYLATE 10 MG TABLET PO SCH (10:00)
[2018-08-14] MEDS: ASPIRIN CHEWABLE 81 MG TABLET. PO SCH (10:01)
[2018-08-14] MEDS: ISOSORBIDE MONONITRATE ER 30 MG TAB.ER.24H PO SCH (10:01)
[2018-08-14] MEDS: POTASSIUM CHLORIDE 10 MEQ TABLET.ER. PO SCH (10:01)
[2018-08-14] MEDS: DOXYCYCLINE HYCLATE 100 MG in IV DEXTROSE 5% 100ML 100 ML IV SCH (10:02)
[2018-08-14] MEDS: METOPROLOL SUCC 24HR ER 25 MG TAB.ER.24H. PO SCH (10:03)
--- NOTE | 2018-08-14 10:41 | PDOC ---
PROGRESS NOTES Chief Complaint Chief Complaint Acute COPD exacerbation with bronchitis chronic combined chf, with CAD - cont meds H/O pulmonary embolism History of anemia of CKD, Osteoarthritis - chronic paiun BASIM on chronic renal insufficiency - baseline cr 1.2-1.3, now 1.2, vasomotor nephropathy fr Diabetes - exac with COPD tx Smoker - advised to quit, Mild upper lobe paraseptal and centrilobular emphysema. History of Present Illness History of Present Illness FEN - ADA diet PPX - Heparin FULL CODE Inpatient for acute COPD exacerbation, may require 2 midnights pulm consult rx toprol xl 25 mg po daily 08/12 INC WHEEZES TODAY 08/13 WHEEZING SLOW TO IMPROVE Vitals Vitals Vital Signs Date Time Temp Pulse Resp B/P (MAP) Pulse Ox O2 Delivery O2 Flow Rate FiO2 08/14/18 10:03 61 165/84 08/14/18 07:15 98 Room Air 08/14/18 07:00 98.1 18 98.1 Physical Exam General: Alert, Oriented X3, Cooperative, No acute distress, mild distress Heart: Regular rate, No murmurs Lungs: Wheezing, Other (a few end exp wheezing) Abdomen: Normal bowel sounds, Soft, No tenderness, No hepatosplenomegaly, No masses Extremities: No clubbing, No cyanosis, No edema, Normal pulses, No tenderness/ swelling Skin: No rashes, No breakdown, No significant lesion Labs LABS Laboratory Tests Test 08/13/18 11:22 08/13/18 16:31 08/13/18 20:44 08/14/18 07:28 Glucose (Fingerstick) 164 mg/dL (70-99) 329 mg/dL (70-99) 284 mg/dL (70-99) 77 mg/dL (70-99) Assessment and Plan Assessmemt and Plan Problems Medical Problems: (1) COPD (chronic obstructive pulmonary disease) Status: Acute Comment Review of Relevant I have reviewed the following items valerie (where applicable) has been applied. Labs Laboratory Tests Test 08/12/18 11:55 08/12/18 16:44 08/12/18 20:57 08/13/18 08:33 Glucose (Fingerstick) 104 mg/dL (70-99) 312 mg/dL (70-99) 306 mg/dL (70-99) 142 mg/dL (70-99) Test 08/13/18 11:22 4/21/19 16:31 08/13/18 20:44 08/14/18 07:28 Glucose (Fingerstick) 164 mg/dL (70-99) 329 mg/dL (70-99) 284 mg/dL (70-99) 77 mg/dL (70-99) Laboratory Tests Test 08/13/18 11:22 08/13/18 16:31 08/13/18 20:44 08/14/18 07:28 Glucose (Fingerstick) 164 mg/dL (70-99) 329 mg/dL (70-99) 284 mg/dL (70-99) 77 mg/dL (70-99) Microbiology 08/11/18 - Final, Complete 08/11/18 - Final, Complete 08/11/18 - Final, Complete 08/11/18 - Final, Complete 08/11/18 Gram Stain Evaluation - Final, Complete 08/11/18 Sputum Culture - Final, Complete 08/11/18 Sputum Result 1 - Final, Complete Medications Current Medications Albuterol/ Ipratropium (Duoneb) 3 ml 1X ONCE NEB Last administered on 14:29; Start 08/10/18 at 14:15; Stop 08/10/18 at 14:18; Status DC Methylprednisolone Sodium Succinate (SOLU-Medrol 125MG VIAL) 60 mg 1X ONCE IV Last administered on 08/10/18at 14:54; Start 08/10/18 at 14:15; Stop 08/10/18 at 14:18; Status DC Albuterol/ Ipratropium (Duoneb) 3 ml 1X ONCE NEB Last administered on at 15:23; Start 08/10/18 at 15:15; Stop 08/10/18 at 15:18; Status DC Albuterol/ Ipratropium (Duoneb) 3 ml RTQID NEB Last administered on 08/11/18at 15:32; Start 08/10/18 at 20:00; Stop 08/11/18 at 19:59; Status DC Albuterol Sulfate (Ventolin Neb Soln) 2.5 mg PRN Q4HRS PRN NEB WHEEZING Last administered on 08/12/18at 04:48; Start 08/10/18 at 17:00 Amlodipine Besylate (Norvasc) 10 mg DAILY PO Last administered on 08/14/18 10: 00; Start 08/11/18 at 09:00 Aspirin (Children'S Aspirin) 81 mg DAILY PO Last administered on 08/14/18 10: 01; Start 08/11/18 at 09:00 Atorvastatin Calcium (Lipitor) 40 mg HS PO Last administered on 08/13/18 21:25 ; Start 08/10/18 at 21:00 Clopidogrel Bisulfate (Plavix) 75 mg DAILY PO Last administered on 08/14/18 09 :59; Start 08/11/18 at 09:00 Insulin Glargine (Lantus) 30 units BID SQ Last administered on 08/11/18 09:45 ; Start 08/10/18 at 21:00; Stop 08/12/18 at 10:02; Status DC Insulin Human Lispro (HumaLOG) 20 units TIDWMEALS SQ Last administered on 17:51; Start 08/10/18 at 17:00 Nitroglycerin (Nitrostat) 0.4 mg PRN Q5MIN PRN SL CHEST PAIN; Start 08/10/18 at 17:00 Potassium Chloride (Klor-Con) 10 meq DAILY PO Last administered on 08/14/18 10 :01; Start 08/11/18 at 09:00 Diltiazem HCl (Cardizem 24hr Cd) 240 mg DAILY PO Last administered on 10:01; Start 08/11/18 at 09:00 Doxycycline Hyclate (Vibra-Tab) 100 mg BID PO ; Start 08/10/18 at 21:00; Status Cancel Isosorbide Mononitrate (Imdur) 120 mg DAILY PO Last administered on 08/14/18 10:01; Start 08/11/18 at 09:00 Non-Formulary Medication (Prednisone ) 1 tab DAILY PO ; Start 08/11/18 at 09:00 ; Status UNV Budesonide (Pulmicort) 0.5 mg RTBID NEB Last administered on 08/14/18 07:15; Start 08/10/18 at 20:00 Ondansetron HCl (Zofran) 4 mg PRN Q6HRS PRN IV NAUSEA/VOMITING; Start 08/10/18 at 17:00 Acetaminophen/ Hydrocodone Bitart (Lortab 5/325) 1 tab PRN Q4HRS PRN PO MILD PAIN; Start 08/10/18 at 17:00 Acetaminophen (Tylenol) 650 mg PRN Q6HRS PRN PO Headaches, Temp > 101.5F; Start 08/10/18 at 17:00 Senna/Docusate Sodium (Senna Plus) 1 tab BID PO Last administered on 08/14/18 09:59; Start 08/10/18 at 21:00 Lactulose (Lactulose) 20 gm PRN Q12HR PRN PO CONSTIPATION; Start 08/10/18 at 17 :00 Heparin Sodium (Porcine) (Heparin Sodium) 5,000 unit Q8HRS SQ Last administered on 08/14/18 05:41; Start 08/10/18 at 22:00 Insulin Human Lispro (HumaLOG) 0-7 UNITS TIDWMEALS SQ Last administered on 08/11 17:26; Start 08/10/18 at 17:00 Dextrose (Dextrose 50%-Water Syringe) 12.5 gm PRN Q15MIN PRN IV SEE COMMENTS; Start 08/10/18 at 17:00 Doxycycline Hyclate 100 mg/ Dextrose 100 ml @ 50 mls/hr Q12HR IV Last administered on 08/14/18at 10:02; Start 08/10/18 at 21:00 Prednisone (Prednisone) 50 mg DAILY PO Last administered on 08/14/18 10:00; Start 08/11/18 at 09:00 Metoprolol Succinate (Toprol Xl) 25 mg DAILY PO Last administered on 08/14/18 10:03; Start 08/11/18 at 13:00 Lactobacillus Rhamnosus (Culturelle) 1 cap BID PO Last administered on 10:00; Start 08/11/18 at 21:00 Albuterol/ Ipratropium (Duoneb) 3 ml RTQID NEB Last administered on 08/14/18at 07:14; Start 08/12/18 at 09:00 Insulin Glargine (Lantus) 20 units DAILY SQ ; Start 08/12/18 at 10:00 Active Scripts Active Proair Hfa Inhaler (Albuterol Sulfate) 8.5 Gm Hfa.aer.ad 1 Puff INH PRN Q6HRS PRN Albuterol Sulfate Neb Soln (Albuterol Sulfate) 2.5 Mg/3 Ml Vial.neb 1 Vial NEB PRN Q4HRS PRN Naproxen 375 Mg Tablet 1 Tab PO BID PRN Prednisone 50 Mg Tablet 1 Tab PO DAILY Levaquin (Levofloxacin) 500 Mg Tablet 1 Tab PO DAILY Doxycycline Hyclate 100 Mg Capsule 1 Cap PO BID Prednisone 50 Mg Tablet 1 Tab PO DAILY Keflex (Cephalexin) 500 Mg Capsule 1 Cap PO TID Azithromycin Tablet (Azithromycin) 250 Mg Tablet 250 Mg PO DAILY Humalog (Insulin Lispro) 100 Unit/1 Ml Insuln.pen 20 Units SQ TIDWMEALS 30 Days Lantus Solostar (Insulin Glargine,Hum.rec.anlog) 100 Unit/1 Ml Insuln.pen 30 Units SQ BID 28 Days Lasix (Furosemide) 40 Mg Tablet 1 Tab PO DAILY Plavix (Clopidogrel Bisulfate) 75 Mg Tablet 1 Tab PO DAILY Reported Aspirin 81 Mg Tab.chew 1 Tab PO DAILY Potassium Chloride 10 Meq Tab.sr.24h 10 Meq PO DAILY Amlodipine Besylate 10 Mg Tablet 10 Mg PO DAILY Isosorbide Mononitrate Er (Isosorbide Mononitrate) 120 Mg Tab.er.24h 120 Mg PO DAILY Diltiazem 24HR Cd (Diltiazem Hcl) 240 Mg Cap.er.24h 240 Mg PO DAILY NITROGLYCERIN SubLingual (Nitroglycerin) 0.4 Mg Tab.subl 0.4 Mg SL PRN Q5MIN PRN Atorvastatin Calcium 40 Mg Tablet 40 Mg PO HS Vitals/I & O Vital Sign - Last 24 Hours 08/13/18 08/13/18 08/13/18 08/13/18 11:00 11:36 15:00 15:54 Temp 97.4 97.9 97.4 97.9 Pulse 55 60 Resp 18 18 B/P (MAP) 184/67 (106) 123/58 (79) Pulse Ox 94 91 O2 Delivery Room Air Room Air Room Air Room Air 08/13/18 08/13/18 08/13/18 08/13/18 19:37 20:30 21:15 23:55 Temp 98.1 98.5 98.1 98.5 Pulse 69 69 Resp 20 18 B/P (MAP) 163/79 (107) 153/94 (113) Pulse Ox 97 99 97 O2 Delivery Nasal Cannula Room Air Room Air Room Air 08/14/18 08/14/18 08/14/18 08/14/18 03:53 07:00 07:15 10:00 Temp 98.1 98.1 98.1 98.1 Pulse 62 61 61 Resp 20 18 B/P (MAP) 174/52 (92) 165/84 (111) 165/84 Pulse Ox 97 100 98 O2 Delivery Room Air Room Air Room Air 08/14/18 08/14/18 08/14/18 10:01 10:01 10:03 Pulse 61 61 61 B/P (MAP) 165/84 165/84 165/84 Intake and Output 08/13/18 08/13/18 08/14/18 14:59 22:59 06:59 Intake Total 840 ml Balance 840 ml KEVIN SHARMA MD Aug 14, 2018 10:41
[2018-08-14 11:00] VITALS: BP 158/83
--- NOTE | 2018-08-14 13:57 | NUR ---
Received orders to D/C telemetry. [employer] Brenda notified. No med/surg bed available at this time.
[2018-08-14 15:00] VITALS: BP 117/52
--- NOTE | 2018-08-14 16:41 | PDOC ---
PULMONARY PROGRESS NOTES Subjective Patient is resting comfortably on room air, pt. reports his breathing is much better than it was. He denies cough or SOB, or chest pain at this time. Vitals Laboratory Tests Test 08/13/18 20:44 08/14/18 07:28 08/14/18 11:59 Glucose (Fingerstick) 284 mg/dL 77 mg/dL 201 mg/dL Current Medications Medications (Trade) Dose Ordered Sig/Ann Marie Route PRN Reason Start Time Stop Time Status Last Admin Dose Admin Albuterol/ Ipratropium (Duoneb) 3 ml 1X ONCE NEB 08/10/18 14:15 08/10/18 14:18 DC 08/10/18 14:29 Methylprednisolone Sodium Succinate (SOLU-Medrol 125MG VIAL) 60 mg 1X ONCE IV 08/10/18 14:15 08/10/18 14:18 DC 08/10/18 14:54 Albuterol/ Ipratropium (Duoneb) 3 ml 1X ONCE NEB 08/10/18 15:15 08/10/18 15:18 DC 08/10/18 15:23 Albuterol/ Ipratropium (Duoneb) 3 ml RTQID NEB 08/10/18 20:00 08/11/18 19:59 DC 08/11/18 15:32 Albuterol Sulfate (Ventolin Neb Soln) 2.5 mg PRN Q4HRS PRN NEB WHEEZING 08/10/18 17:00 08/12/18 04:48 Amlodipine Besylate (Norvasc) 10 mg DAILY PO 08/11/18 09:00 08/14/18 10:00 Aspirin (Children'S Aspirin) 81 mg DAILY PO 08/11/18 09:00 08/14/18 10:01 Atorvastatin Calcium (Lipitor) 40 mg HS PO 08/10/18 21:00 08/13/18 21:25 Clopidogrel Bisulfate (Plavix) 75 mg DAILY PO 08/11/18 09:00 08/14/18 09:59 Insulin Glargine (Lantus) 30 units BID SQ 08/10/18 21:00 08/12/18 10:02 DC 08/11/18 09:45 Insulin Human Lispro (HumaLOG) 20 units TIDWMEALS SQ 08/10/18 17:00 08/14/18 12:15 Nitroglycerin (Nitrostat) 0.4 mg PRN Q5MIN PRN SL CHEST PAIN 08/10/18 17:00 Potassium Chloride (Klor-Con) 10 meq DAILY PO 08/11/18 09:00 08/14/18 10:01 Diltiazem HCl (Cardizem 24hr Cd) 240 mg DAILY PO 08/11/18 09:00 08/14/18 10:01 Doxycycline Hyclate (Vibra-Tab) 100 mg BID PO 08/10/18 21:00 Cancel Isosorbide Mononitrate (Imdur) 120 mg DAILY PO 08/11/18 09:00 08/14/18 10:01 Non-Formulary Medication (Prednisone ) 1 tab DAILY PO 08/11/18 09:00 UNV Budesonide (Pulmicort) 0.5 mg RTBID NEB 08/10/18 20:00 08/14/18 07:15 Ondansetron HCl (Zofran) 4 mg PRN Q6HRS PRN IV NAUSEA/VOMITING 08/10/18 17:00 Acetaminophen/ Hydrocodone Bitart (Lortab 5/325) 1 tab PRN Q4HRS PRN PO MILD PAIN 08/10/18 17:00 Acetaminophen (Tylenol) 650 mg PRN Q6HRS PRN PO Headaches, Temp > 101.5F 08/10/18 17:00 Senna/Docusate Sodium (Senna Plus) 1 tab BID PO 08/10/18 21:00 08/14/18 09:59 Lactulose (Lactulose) 20 gm PRN Q12HR PRN PO CONSTIPATION 08/10/18 17:00 Heparin Sodium (Porcine) (Heparin Sodium) 5,000 unit Q8HRS SQ 08/10/18 22:00 08/14/18 14:26 Insulin Human Lispro (HumaLOG) 0-7 UNITS TIDWMEALS SQ 08/10/18 17:00 08/14/18 12:15 Dextrose (Dextrose 50%-Water Syringe) 12.5 gm PRN Q15MIN PRN IV SEE COMMENTS 08/10/18 17:00 Doxycycline Hyclate 100 mg/ Dextrose 100 ml @ 50 mls/hr Q12HR IV 08/10/18 21:00 08/14/18 15:00 DC 08/14/18 10:02 Prednisone (Prednisone) 50 mg DAILY PO 08/11/18 09:00 08/14/18 10:00 Metoprolol Succinate (Toprol Xl) 25 mg DAILY PO 08/11/18 13:00 08/14/18 10:03 Lactobacillus Rhamnosus (Culturelle) 1 cap BID PO 08/11/18 21:00 08/14/18 10:00 Albuterol/ Ipratropium (Duoneb) 3 ml RTQID NEB 08/12/18 09:00 08/14/18 15:42 Insulin Glargine (Lantus) 20 units DAILY SQ 08/12/18 10:00 Doxycycline Hyclate (Vibra-Tab) 100 mg BID PO 08/14/18 21:00 Vital Signs Date Time Temp Pulse Resp B/P (MAP) Pulse Ox O2 Delivery O2 Flow Rate FiO2 08/14/18 15:43 97 Room Air 08/14/18 15:00 98.0 59 18 117/52 (73) 98.0 General: Alert, Oriented X4, No acute distress HEENT: Other (nc at perrl) Lungs: Clear, Other Cardiovascular: S1, S2 Abdomen: Soft, Non-tender, Other Neuro Exam: Alert, Oriented Extremities: No Edema, Other (+1 edema in RLE) Skin: Warm Labs Laboratory Tests Test 08/13/18 20:44 08/14/18 07:28 08/14/18 11:59 Glucose (Fingerstick) 284 mg/dL 77 mg/dL 201 mg/dL Current Medications Medications (Trade) Dose Ordered Sig/Ann Marie Route PRN Reason Start Time Stop Time Status Last Admin Dose Admin Albuterol/ Ipratropium (Duoneb) 3 ml 1X ONCE NEB 08/10/18 14:15 08/10/18 14:18 DC 08/10/18 14:29 Methylprednisolone Sodium Succinate (SOLU-Medrol 125MG VIAL) 60 mg 1X ONCE IV 08/10/18 14:15 08/10/18 14:18 DC 08/10/18 14:54 Albuterol/ Ipratropium (Duoneb) 3 ml 1X ONCE NEB 08/10/18 15:15 08/10/18 15:18 DC 08/10/18 15:23 Albuterol/ Ipratropium (Duoneb) 3 ml RTQID NEB 08/10/18 20:00 08/11/18 19:59 DC 08/11/18 15:32 Albuterol Sulfate (Ventolin Neb Soln) 2.5 mg PRN Q4HRS PRN NEB WHEEZING 08/10/18 17:00 08/12/18 04:48 Amlodipine Besylate (Norvasc) 10 mg DAILY PO 08/11/18 09:00 08/14/18 10:00 Aspirin (Children'S Aspirin) 81 mg DAILY PO 08/11/18 09:00 08/14/18 10:01 Atorvastatin Calcium (Lipitor) 40 mg HS PO 08/10/18 21:00 08/13/18 21:25 Clopidogrel Bisulfate (Plavix) 75 mg DAILY PO 08/11/18 09:00 08/14/18 09:59 Insulin Glargine (Lantus) 30 units BID SQ 08/10/18 21:00 08/12/18 10:02 DC 08/11/18 09:45 Insulin Human Lispro (HumaLOG) 20 units TIDWMEALS SQ 08/10/18 17:00 08/14/18 12:15 Nitroglycerin (Nitrostat) 0.4 mg PRN Q5MIN PRN SL CHEST PAIN 08/10/18 17:00 Potassium Chloride (Klor-Con) 10 meq DAILY PO 08/11/18 09:00 08/14/18 10:01 Diltiazem HCl (Cardizem 24hr Cd) 240 mg DAILY PO 08/11/18 09:00 08/14/18 10:01 Doxycycline Hyclate (Vibra-Tab) 100 mg BID PO 08/10/18 21:00 Cancel Isosorbide Mononitrate (Imdur) 120 mg DAILY PO 08/11/18 09:00 08/14/18 10:01 Non-Formulary Medication (Prednisone ) 1 tab DAILY PO 08/11/18 09:00 UNV Budesonide (Pulmicort) 0.5 mg RTBID NEB 08/10/18 20:00 08/14/18 07:15 Ondansetron HCl (Zofran) 4 mg PRN Q6HRS PRN IV NAUSEA/VOMITING 08/10/18 17:00 Acetaminophen/ Hydrocodone Bitart (Lortab 5/325) 1 tab PRN Q4HRS PRN PO MILD PAIN 08/10/18 17:00 Acetaminophen (Tylenol) 650 mg PRN Q6HRS PRN PO Headaches, Temp > 101.5F 08/10/18 17:00 Senna/Docusate Sodium (Senna Plus) 1 tab BID PO 08/10/18 21:00 08/14/18 09:59 Lactulose (Lactulose) 20 gm PRN Q12HR PRN PO CONSTIPATION 08/10/18 17:00 Heparin Sodium (Porcine) (Heparin Sodium) 5,000 unit Q8HRS SQ 08/10/18 22:00 08/14/18 14:26 Insulin Human Lispro (HumaLOG) 0-7 UNITS TIDWMEALS SQ 08/10/18 17:00 08/14/18 12:15 Dextrose (Dextrose 50%-Water Syringe) 12.5 gm PRN Q15MIN PRN IV SEE COMMENTS 08/10/18 17:00 Doxycycline Hyclate 100 mg/ Dextrose 100 ml @ 50 mls/hr Q12HR IV 08/10/18 21:00 08/14/18 15:00 DC 08/14/18 10:02 Prednisone (Prednisone) 50 mg DAILY PO 08/11/18 09:00 08/14/18 10:00 Metoprolol Succinate (Toprol Xl) 25 mg DAILY PO 08/11/18 13:00 08/14/18 10:03 Lactobacillus Rhamnosus (Culturelle) 1 cap BID PO 08/11/18 21:00 08/14/18 10:00 Albuterol/ Ipratropium (Duoneb) 3 ml RTQID NEB 08/12/18 09:00 08/14/18 15:42 Insulin Glargine (Lantus) 20 units DAILY SQ 08/12/18 10:00 Doxycycline Hyclate (Vibra-Tab) 100 mg BID PO 08/14/18 21:00 Laboratory Tests Test 08/12/18 16:44 08/12/18 20:57 08/13/18 08:33 08/13/18 11:22 Glucose (Fingerstick) 312 mg/dL (70-99) 306 mg/dL (70-99) 142 mg/dL (70-99) 164 mg/dL (70-99) Test 08/13/18 16:31 08/13/18 20:44 08/14/18 07:28 08/14/18 11:59 Glucose (Fingerstick) 329 mg/dL (70-99) 284 mg/dL (70-99) 77 mg/dL (70-99) 201 mg/dL (70-99) Laboratory Tests Test 08/13/18 20:44 08/14/18 07:28 08/14/18 11:59 Glucose (Fingerstick) 284 mg/dL (70-99) 77 mg/dL (70-99) 201 mg/dL (70-99) Medications Active Scripts Medications Dose Route/Sig Max Daily Dose Days Date Category Proair Hfa Inhaler (Albuterol Sulfate) 8.5 Gm Hfa.aer.ad 1 Puff INH PRN Q6HRS PRN 08/01/18 Rx Albuterol Sulfate Neb Soln (Albuterol Sulfate) 2.5 Mg/3 Ml Vial.neb 1 Vial NEB PRN Q4HRS PRN 08/01/18 Rx Naproxen 375 Mg Tablet 1 Tab PO BID PRN 08/01/18 Rx Prednisone 50 Mg Tablet 1 Tab PO DAILY 05/29/18 Rx Levaquin (Levofloxacin) 500 Mg Tablet 1 Tab PO DAILY 05/29/18 Rx Doxycycline Hyclate 100 Mg Capsule 1 Cap PO BID 02/07/18 Rx Prednisone 50 Mg Tablet 1 Tab PO DAILY 02/07/18 Rx Keflex (Cephalexin) 500 Mg Capsule 1 Cap PO TID 02/06/18 Rx Azithromycin Tablet (Azithromycin) 250 Mg Tablet 250 Mg PO DAILY 12/02/17 Rx Aspirin 81 Mg Tab.chew 1 Tab PO DAILY 12/01/17 Reported Potassium Chloride 10 Meq Tab.sr.24h 10 Meq PO DAILY 12/01/17 Reported Amlodipine Besylate 10 Mg Tablet 10 Mg PO DAILY 12/01/17 Reported Humalog (Insulin Lispro) 100 Unit/1 Ml Insuln.pen 20 Units SQ TIDWMEALS 30 10/12/17 Rx Lantus Solostar (Insulin Glargine,Hum.rec.anlog) 100 Unit/1 Ml Insuln.pen 30 Units SQ BID 28 10/12/17 Rx Lasix (Furosemide) 40 Mg Tablet 1 Tab PO DAILY 10/07/16 Rx Plavix (Clopidogrel Bisulfate) 75 Mg Tablet 1 Tab PO DAILY 10/07/16 Rx Isosorbide Mononitrate Er (Isosorbide Mononitrate) 120 Mg Tab.er.24h 120 Mg PO DAILY 06/21/16 Reported Diltiazem 24HR Cd (Diltiazem Hcl) 240 Mg Cap.er.24h 240 Mg PO DAILY 11/18/15 Reported NITROGLYCERIN SubLingual (Nitroglycerin) 0.4 Mg Tab.subl 0.4 Mg SL PRN Q5MIN PRN 11/18/15 Reported Atorvastatin Calcium 40 Mg Tablet 40 Mg PO HS 11/18/15 Reported Active Scripts Medications Dose Route/Sig Max Daily Dose Days Date Category Proair Hfa Inhaler (Albuterol Sulfate) 8.5 Gm Hfa.aer.ad 1 Puff INH PRN Q6HRS PRN 08/01/18 Rx Albuterol Sulfate Neb Soln (Albuterol Sulfate) 2.5 Mg/3 Ml Vial.neb 1 Vial NEB PRN Q4HRS PRN 08/01/18 Rx Naproxen 375 Mg Tablet 1 Tab PO BID PRN 08/01/18 Rx Prednisone 50 Mg Tablet 1 Tab PO DAILY 05/29/18 Rx Levaquin (Levofloxacin) 500 Mg Tablet 1 Tab PO DAILY 05/29/18 Rx Doxycycline Hyclate 100 Mg Capsule 1 Cap PO BID 02/07/18 Rx Prednisone 50 Mg Tablet 1 Tab PO DAILY 02/07/18 Rx Keflex (Cephalexin) 500 Mg Capsule 1 Cap PO TID 02/06/18 Rx Azithromycin Tablet (Azithromycin) 250 Mg Tablet 250 Mg PO DAILY 12/02/17 Rx Aspirin 81 Mg Tab.chew 1 Tab PO DAILY 12/01/17 Reported Potassium Chloride 10 Meq Tab.sr.24h 10 Meq PO DAILY 12/01/17 Reported Amlodipine Besylate 10 Mg Tablet 10 Mg PO DAILY 12/01/17 Reported Humalog (Insulin Lispro) 100 Unit/1 Ml Insuln.pen 20 Units SQ TIDWMEALS 30 10/12/17 Rx Lantus Solostar (Insulin Glargine,Hum.rec.anlog) 100 Unit/1 Ml Insuln.pen 30 Units SQ BID 28 10/12/17 Rx Lasix (Furosemide) 40 Mg Tablet 1 Tab PO DAILY 10/07/16 Rx Plavix (Clopidogrel Bisulfate) 75 Mg Tablet 1 Tab PO DAILY 10/07/16 Rx Isosorbide Mononitrate Er (Isosorbide Mononitrate) 120 Mg Tab.er.24h 120 Mg PO DAILY 06/21/16 Reported Diltiazem 24HR Cd (Diltiazem Hcl) 240 Mg Cap.er.24h 240 Mg PO DAILY 11/18/15 Reported NITROGLYCERIN SubLingual (Nitroglycerin) 0.4 Mg Tab.subl 0.4 Mg SL PRN Q5MIN PRN 11/18/15 Reported Atorvastatin Calcium 40 Mg Tablet 40 Mg PO HS 11/18/15 Reported Impression . Dyspnea, Acute exacerbation of chronic obstructive pulmonary disease. Acute bronchitis. Diabetes mellitus. Hypertension. Coronary artery disease. Tobacco habituation. Plan . Dyspnea:resolved Acute exacerbation of chronic obstructive pulmonary disease.:resolved * smoking cessation * prednisone with taper Acute bronchitis:improved * cont. doxy * cont. bronchodilators Diabetes mellitus. * cont. home regimen Hypertension. * cont. home regimen DOUGIE RIVAS MD Aug 14, 2018 16:41
[2018-08-14] MEDS ORDERED: PRED20TA PO (17:08)
[2018-08-14] MEDS ORDERED: DOXYCYCLINE HYCLATE 100 MG TABLET PO SCH (21:00)
--- NOTE | 2018-09-12 13:25 | PDOC3 ---
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 Problems Medical Problems: (1) COPD (chronic obstructive pulmonary disease) Status: Acute Brief Hospital Course Allergies Allergies Coded Allergies Type Severity Reaction Last Updated Verified lisinopril Allergy Severe Anaphylaxis 09/30/16 Yes Brief Hospital Course Mr. Lloyd is a 77 old admit with cough and dyspnea, wheezing, no fver or chills, some rhinitis He has history of more than [id number] smoking, continues to smoke about half a pack per day. steroids, nebs, abx, he felt much improved at DC Discharge Information Condition at Discharge: Improved Follow Up: Weeks Disposition/Orders: D/C to Home Scheduled Amlodipine Besylate (Amlodipine Besylate) 10 Mg Tablet, 10 MG PO DAILY, (Reported) Entered as Reported by: NAOMI PRESTON on 12/01/17955 Last Taken: Unknown Dose on 08/10/18 Last Action: Continued on 08/10/181656 by KO GAYTAN MD Aspirin (Aspirin) 81 Mg Tab.chew, 1 TAB PO DAILY, #30 Ref 3 (Reported) Entered as Reported by: NAOMI PRESTON on 12/01/17 09 Last Action: Continued on 08/10/181656 by KO GAYTAN MD Atorvastatin Calcium (Atorvastatin Calcium) 40 Mg Tablet, 40 MG PO HS for FOR CHOLESTEROL, #30 Ref 0 (Reported) Entered as Reported by: CORBY HOFFMAN on 11/18/15 2316 Last Taken: Unknown Dose on 08/10/18 Last Action: Continued on 08/10/181656 by KO GAYTAN MD Azithromycin (Azithromycin Tablet) 250 Mg Tablet, 250 MG PO DAILY, #5 Prescribed by: KEVIN SHARMA on 12/02/17 1259 Last Action: HELD on 08/10/181655 by KO GAYTAN MD Cephalexin (Keflex) 500 Mg Capsule, 1 CAP PO TID, #21 Prescribed by: ANNELISE CAMARGO on 02/06/182112 Last Action: HELD on 08/10/181655 by KO GAYTAN MD Clopidogrel Bisulfate (Plavix) 75 Mg Tablet, 1 TAB PO DAILY, #90 Ref 1 Prescribed by: BALA BRYANT on 10/07/16 1254 Last Taken: Unknown Dose on 08/10/18 Last Action: Continued on 08/10/181656 by KO GAYTAN MD Diltiazem Hcl (Diltiazem 24HR Cd) 240 Mg Cap.er.24h, 240 MG PO DAILY, (Reported) Entered as Reported by: CORBY HOFFMAN on 11/18/15 2316 Last Taken: Unknown Dose on 08/10/18 Last Action: Converted on 08/10/181656 by KO GAYTAN MD Doxycycline Hyclate (Doxycycline Hyclate) 100 Mg Capsule, 1 CAP PO BID, #14 Prescribed by: ADEEL HOWELL MD on 02/07/18 1349 Last Action: Converted on 08/10/181656 by KO GAYTAN MD Furosemide (Lasix) 40 Mg Tablet, 1 TAB PO DAILY, #90 Ref 1 Prescribed by: BALA BRYANT on 10/07/16 1254 Last Action: HELD on 08/10/181655 by KO GAYTAN MD Insulin Glargine,Hum.rec.anlog (Lantus Solostar) 100 Unit/1 Ml Insuln.pen, 30 UNITS SQ BID for 28 Days, #30 Prescribed by: SUDHIR JARVIS MD on 10/12/17 1356 Last Action: Continued on 08/10/181656 by KO GAYTAN MD Insulin Lispro (Humalog) 100 Unit/1 Ml Insuln.pen, 20 UNITS SQ TIDWMEALS for 30 Days, #90 Prescribed by: SUDHIR JARVIS MD on 10/12/17 1356 Last Action: Continued on 08/10/181656 by KO GAYTAN MD Isosorbide Mononitrate (Isosorbide Mononitrate Er) 120 Mg Tab.er.24h, 120 MG PO DAILY, (Reported) Entered as Reported by: ROLO APPIAH on 06/21/16 0120 Last Taken: Unknown Dose on 08/10/18 Last Action: Converted on 08/10/181656 by KO GAYTAN MD Levofloxacin (Levaquin) 500 Mg Tablet, 1 TAB PO DAILY for pneumonia, #10 Prescribed by: JAGDEEP LANGLEY APRN on 05/29/181620 Last Action: HELD on 08/10/181655 by KO GAYTAN MD Potassium Chloride (Potassium Chloride) 10 Meq Tab.sr.24h, 10 MEQ PO DAILY, (Reported) Entered as Reported by: NAOMI PRESTON on 12/01/17 0956 Last Action: Continued on 08/10/181656 by KO GAYTAN MD Prednisone (Prednisone) 50 Mg Tablet, 1 TAB PO DAILY, #5 Prescribed by: ADEEL HOWELL MD on 02/07/18 1349 Last Action: Converted on 08/10/181656 by KO GAYTAN MD Prednisone (Prednisone) 50 Mg Tablet, 1 TAB PO DAILY for shortness of air, #5 Prescribed by: JAGDEEP LANGLEY APRN on 05/29/181620 Last Action: HELD on 08/10/181655 by KO GAYTAN MD Prednisone (Prednisone) 20 Mg Tablet, 1.5 TAB PO DAILY for COPD, #8 (Reported) Entered as Reported by: SUNNY DUENAS RN on 08/14/18 1708 Scheduled PRN Albuterol Sulfate (Albuterol Sulfate Neb Soln) 2.5 Mg/3 Ml Vial.neb, 1 VIAL NEB PRN Q4HRS PRN for WHEEZING, #50 Prescribed by: ADJA GRAHAM D.O. on 08/01/18 1353 Last Action: Continued on 08/10/181656 by KO GAYTAN MD Albuterol Sulfate (Proair Hfa Inhaler) 8.5 Gm Hfa.aer.ad, 1 PUFF INH PRN Q6HRS PRN for SHORTNESS OF BREATH, #1 Ref 0 Prescribed by: DAJA GRAHAM D.O. on 08/01/18 135 Last Taken: Unknown Dose on 08/10/18 Last Action: Last Taken Edited on 08/10/18 1336 by RJ TAYLOR Naproxen (Naproxen) 375 Mg Tablet, 1 TAB PO BID PRN for PAIN, #20 Ref 0 Prescribed by: DAJA GRAHAM D.O. on 08/01/18 1353 Last Action: HELD on 08/10/181655 by KO GAYTAN MD Nitroglycerin (NITROGLYCERIN SubLingual) 0.4 Mg Tab.subl, 0.4 MG SL PRN Q5MIN PRN for CHEST PAIN, (Reported) Entered as Reported by: CORBY HOFFMAN on 11/18/15 2316 Last Action: Continued on 08/10/181656 by KO GAYTAN MD Patient Instructions Patient Instructions 30 min 'face to face, more than 30 min KEVIN SHARMA MD September 12, 2018 13:25
== END 2018-08-14 18:00 | disposition home or self-care (01) | DRG 190 ==
LOC: ER 13:13 → 6 SOUTH 15:17 → OBSVTOIN 15:18
PROVIDERS: ADMIT Internal Medicine; ATTEND Internal Medicine
DX: J44.1 Chronic obstructive pulmonary disease with (acute) exacerbation (principal); N17.0 Acute kidney failure with tubular necrosis; I13.0 Hypertensive heart and chronic kidney disease with heart failure and stage 1 through stage 4 chronic kidney disease, or unspecified chronic kidney disease; I50.42 Chronic combined systolic (congestive) and diastolic (congestive) heart failure; J44.0 Chronic obstructive pulmonary disease with (acute) lower respiratory infection; J20.9 Acute bronchitis, unspecified; M19.90 Unspecified osteoarthritis, unspecified site; D63.1 Anemia in chronic kidney disease; E11.22 Type 2 diabetes mellitus with diabetic chronic kidney disease; E78.00 Pure hypercholesterolemia, unspecified; E78.5 Hyperlipidemia, unspecified; F17.210 Nicotine dependence, cigarettes, uncomplicated; I25.10 Atherosclerotic heart disease of native coronary artery without angina pectoris; N18.9 Chronic kidney disease, unspecified; Z79.899 Other long term (current) drug therapy; Z82.49 Family history of ischemic heart disease and other diseases of the circulatory system; Z86.711 Personal history of pulmonary embolism; I25.2 Old myocardial infarction; Z86.718 Personal history of other venous thrombosis and embolism; Z79.01 Long term (current) use of anticoagulants; Z88.8 Allergy status to other drugs, medicaments and biological substances; Z71.6 Tobacco abuse counseling
CPT/HCPCS: 36415; 71045; 80048; 82962; 84484; 85025; 85379; 87070; 87205; 93005; 94640; 94760; 96374; G0379; J1644; J1815; J2930; J3490; J7512; J7613; J7620; J7626; 99285-25

== ENCOUNTER 2019-02-18 11:09 | Inpatient (IN) | payer MEDICARE ==
[~2019-02-18] VITALS: Ht 188 cm; Wt 94.3 kg
[~2019-02-18 11:09] MED LIST changes: +FLUT1BLS3 IH; +LISI1TAB23 PO; -LISI1TAB3 PO; +METF500S5 PO; +PRED20TA PO
[2019-02-18] MEDS ORDERED: methylPREDNISolone SOD SUCC PF 125 MG/2 ML VIAL. IV ONE (12:30)
[2019-02-18] MEDS ORDERED: IV NORMAL SALINE 1000ML BAG 1,000 ML IV ONE (12:30)
[2019-02-18] MEDS ORDERED: IPRATRPIUM/ALBUTEROL 0.5/2.5MG 3 ML NEBU. NEB ONE (12:30)
[2019-02-18] MEDS ORDERED: ALBUTEROL SULFATE 2.5 MG/3 ML NEBU. CONT NEB ONE (12:30)
--- NOTE | 2019-02-18 12:54 | PHYS DOC ---
Past Medical History Past Medical History: Asthma, CAD, COPD, Diabetes-Type II, DVT, High Cholesterol, Hypertension, [place], Prostatitis, Other Additional Past Medical Histor: EMPHYSEMA Past Surgical History: Other Additional Past Surgical Histo: Left lower lobectomy; right leg,R TOES AMPUTATED Additional Information: 0.5 PPD Alcohol Use: None Drug Use: None Adult General Chief Complaint Chief Complaint: MULTIPLE COMPLAINTS HPI HPI Patient is a 78 year old male who presents with productive cough with green sputum, sore throat, ear pain, back pain for the last week. Patient has a history of COPD hypertension, diabetes. Patient does not usually wear auction at home. Patient was 84% on room air when he arrived. Patient is 97% on 2 L. Review of Systems Review of Systems Constitutional: Denies fever or chills [] Eyes: Denies change in visual acuity, redness, or eye pain [] HENT: nasal congestion or sore throat, ear pain [] Respiratory: cough or shortness of breath [] Cardiovascular: Pain, tightness, congestion All other systems were reviewed and found to be within normal limits, except as documented in this note. Current Medications Current Medications Current Medications Medications (Trade) Dose Ordered Sig/Ann Marie Start Time Stop Time Status Last Admin Dose Admin Albuterol Sulfate (Ventolin Neb Soln) 10 mg 1X ONCE 02/18/19 12:30 02/18/19 12:32 DC 02/18/19 12:49 10 MG Albuterol/ Ipratropium (Duoneb) 3 ml 1X ONCE 02/18/19 12:30 02/18/19 12:32 DC 02/18/19 12:48 3 ML Azithromycin (Zithromax) 500 mg 1X ONCE 02/18/19 15:15 02/18/19 15:17 DC 02/18/19 15:27 500 MG Ceftriaxone Sodium (Rocephin Im) 1 gm 1X ONCE 02/18/19 15:15 02/18/19 15:17 DC 02/18/19 15:27 1 GM Methylprednisolone Sodium Succinate (SOLU-Medrol 125MG VIAL) 125 mg 1X ONCE 02/18/19 12:30 02/18/19 15:09 DC Ondansetron HCl (Zofran Odt) 4 mg 1X ONCE 02/18/19 15:15 02/18/19 15:17 DC 02/18/19 15:27 4 MG Prednisone (Prednisone) 50 mg 1X ONCE 02/18/19 15:15 02/18/19 15:17 DC 02/18/19 15:27 50 MG Sodium Chloride 1,000 ml @ 1,000 mls/hr 1X ONCE 02/18/19 12:30 02/18/19 13:29 DC Allergies Allergies Allergies Coded Allergies Type Severity Reaction Last Updated Verified lisinopril Allergy Severe Anaphylaxis 09/30/16 Yes Physical Exam Physical Exam Constitutional: Well developed, well nourished, no acute distress, non-toxic appearance. [] HENT: Normocephalic, atraumatic, bilateral external ears normal, oropharynx moist, no oral exudates, nose normal. [] Eyes: PERRLA, EOMI, conjunctiva normal, no discharge. [] Neck: Normal range of motion, no tenderness, supple, no stridor. [] Cardiovascular:Heart rate regular rhythm, no murmur [] Lungs & Thorax: Bilateral upper and lower breath sounds inspiratory and expiratory wheezes and coarse sounds to auscultation [] Abdomen: Bowel sounds normal, soft, no tenderness, no masses, no pulsatile masses. [] Skin: Warm, dry, no erythema, no rash. [] Extremities: No tenderness, no cyanosis, no clubbing, ROM intact, no edema. [] Neurologic: Alert and oriented X 3, normal motor function, normal sensory function, no focal deficits noted. [] Psychologic: Affect normal, judgement normal, mood normal. [] Current Patient Data Vital Signs Vital Signs Date Time Temp Pulse Resp B/P (MAP) Pulse Ox O2 Delivery O2 Flow Rate FiO2 02/18/19 14:16 86 155/79 (104) Nasal Cannula 02/18/19 13:26 100 02/18/19 12:49 2.0 02/18/19 12:26 26 02/18/19 11:50 98.9 98.9 Lab Values Laboratory Tests Test 02/18/19 12:02 02/18/19 14:20 Glucose (Fingerstick) 141 mg/dL (70-99) H White Blood Count 6.5 x10^3/uL (4.0-11.0) Red Blood Count 3.75 x10^6/uL (4.30-5.70) L Hemoglobin 10.4 g/dL (13.0-17.5) L Hematocrit 32.2 % (39.0-53.0) L Mean Corpuscular Volume 86 fL (79-100) Mean Corpuscular Hemoglobin 28 pg (25-35) Mean Corpuscular Hemoglobin Concent 32 g/dL (31-37) Red Cell Distribution Width 15.1 % (11.5-14.5) H Platelet Count 269 x10^3/uL (140-400) Neutrophils (%) (Auto) 66 % (31-73) Lymphocytes (%) (Auto) 16 % (24-48) L Monocytes (%) (Auto) 15 % (0-9) H Eosinophils (%) (Auto) 2 % (0-3) Basophils (%) (Auto) 0 % (0-3) Neutrophils # (Auto) 4.3 x10^3/uL (1.8-7.7) Lymphocytes # (Auto) 1.1 x10^3/uL (1.0-4.8) Monocytes # (Auto) 1.0 x10^3/uL (0.0-1.1) Eosinophils # (Auto) 0.1 x10^3/uL (0.0-0.7) Basophils # (Auto) 0.0 x10^3/uL (0.0-0.2) Sodium Level 144 mmol/L (136-145) Potassium Level 4.3 mmol/L (3.5-5.1) Chloride Level 105 mmol/L (98-107) Carbon Dioxide Level 31 mmol/L (21-32) Anion Gap 8 (6-14) Blood Urea Nitrogen 22 mg/dL (8-26) Creatinine 1.3 mg/dL (0.7-1.3) Estimated GFR (Cockcroft-Gault) 64.9 BUN/Creatinine Ratio 17 (6-20) Glucose Level 154 mg/dL (70-99) H Lactic Acid Level 1.0 mmol/L (0.4-2.0) Calcium Level 8.4 mg/dL (8.5-10.1) L Total Bilirubin 0.3 mg/dL (0.2-1.0) Aspartate Amino Transferase (AST) 14 U/L (15-37) L Alanine Aminotransferase (ALT) 16 U/L (16-63) Alkaline Phosphatase 88 U/L (46-116) Troponin I Quantitative < 0.017 ng/mL (0.000-0.055) Total Protein 6.6 g/dL (6.4-8.2) Albumin 2.8 g/dL (3.4-5.0) L Albumin/Globulin Ratio 0.7 (1.0-1.7) L Laboratory Tests 02/18/19 14:20 Laboratory Tests 02/18/19 14:20 EKG EKG Sinus Rhythm and no STEMI[] Interpretation Time: [address] Olivera Radiology/Procedures Radiology/Procedures [] Impressions: [facility] [address] [place] [address] IMAGING REPORT Signed PATIENT: BRONSON TAI ACCOUNT: [id number] : 1940 LOCATION: ER AGE: 78 SEX: M EXAM STATUS: REG ER ORD. PHYSICIAN: JEANINE TURK APRN REASON: chronic soa, cough, generalized pain PROCEDURE: PORTABLE CHEST 1V EXAM: Chest, single view. HISTORY: Cough. Pain. COMPARISON: 08/10/2018 FINDINGS: A frontal view of the chest is obtained. There is stable right middle and lower lobe opacity with blunting of the right costophrenic angle and right hemithorax volume loss with rightward mediastinal shift. There is a stable prominent cardiac silhouette. IMPRESSION: Stable suspected right middle and lower lobe pleural parenchymal scarring with associated pleural thickening and right hemithorax volume loss. The possibility of superimposed lower lobe interstitial infiltrate is not excluded radiographically. Electronically signed by: Parvin Adames MD (02/18/2019 1:19 PM) [facility] DICTATED and SIGNED BY: PARVIN ADAMES MD DATE: 02/18/19 1319 Course & Med Decision Making Course & Med Decision Making Patient states he is having back pain and chest heaviness due to his cough and congestion. Patient states he is short of air but denies fever, nausea, headache, vomiting, diarrhea, abdominal pain, dizziness, headache, numbness or tingling, weakness. Patient states he has had his flu shot. Patient's has inspiratory and expiratory wheezes with coarse sounds throughout all lobes. Abdomen is soft and nontender. Skin pink warm and dry. Mucous membranes moist. Patient's EKG shows sinus rhythm been no STEMI. No extremity swelling. Speaks in full clear sentences. PERRLA. Chest xray shows IMPRESSION: Stable suspected right middle and lower lobe pleural parenchymal scarring with associated pleural thickening and right hemithorax volume loss. The possibility of superimposed lower lobe interstitial infiltrate is not excluded radiographically. Many nurses, lab techs and anesthesia have tried to get blood on the patient and IV access. Patient states he is breathing easier after breathing treatments. 1430: Lab was able to blood. We still do not have IV access. I have given the patient IM Rocephin and PO Azithromycin and Prednisone. 1544: I have spoken to Dr Medina and he states to consult PICC team for IV access and Dr Weber. He states to admit to Dr Gandhi. Jimmy Disclaimer Jimmy Disclaimer This electronic medical record was generated, in whole or in part, using a voice recognition dictation system. Departure Departure Impression: Primary Impression: Pneumonia Disposition: 09 ADMITTED INPATIENT Admitting Physician: Mary Gandhi Condition: STABLE Referrals: LILIBETH PORTER (PCP) Problem Qualifiers Primary Impression: Pneumonia Pneumonia type: due to unspecified organism Laterality: unspecified laterality Lung location: unspecified part of lung Qualified Codes: J18.9 - Pneumonia, unspecified organism JEANINE TURK AVIATION PROJECT MANAGER Feb 18, 2019 12:54
--- NOTE | 2019-02-18 13:22 | RAD ---
EXAM: Chest, single view. HISTORY: Cough. Pain. COMPARISON: 08/10/2018 FINDINGS: A frontal view of the chest is obtained. There is stable right middle and lower lobe opacity with blunting of the right costophrenic angle and right hemithorax volume loss with rightward mediastinal shift. There is a stable prominent cardiac silhouette. IMPRESSION: Stable suspected right middle and lower lobe pleural parenchymal scarring with associated pleural thickening and right hemithorax volume loss. The possibility of superimposed lower lobe interstitial infiltrate is not excluded radiographically. Electronically signed by: Parvin Ramos MD (02/18/2019 1:19 PM) [facility]
--- NOTE | 2019-02-18 13:53 | EKG ---
[facility] [address] [place] [address] Test Date: 2019-02-18 Test Time: 11:59:40 Pat Name: BRONSON TAI Department: Room: Gender: M Conflicts Analyst: : 1940 Requested By: JEANINE TURK Order Number: [id number] Reading MD: Measurements Intervals [place] Rate: 89 P: 34 WY: 198 QRS: 3 QRSD: 108 T: 49 QT: 394 QTc: 486 Interpretive Statements SINUS RHYTHM LEFT ATRIAL ABNORMALITY QRS(T) CONTOUR ABNORMALITY CONSIDER INFERIOR MYOCARDIAL DAMAGE T ABNORMALITY IN HIGH LATERAL LEADS PROLONGED QT ABNORMAL ECG No previous ECG available for comparison
[2019-02-18 14:31] LABS: BASO % 0 % (0-3); EOS # 0.1 x10^3/uL (0.0-0.7); EOS % 2 % (0-3); HEMATOCRIT 32.2 % (39.0-53.0); HEMOGLOBIN 10.4 g/dL (13.0-17.5); LYMPH # 1.1 x10^3/uL (1.0-4.8); LYMPH % 16 % (24-48); MEAN CORPUSCULAR HEMOGLOBIN 28 pg (25-35); MEAN CORPUSCULAR HGB CONC 32 g/dL (31-37); MEAN CORPUSCULAR VOLUME 86 fL (79-100); MONO % 15 % (0-9); NEUT # 4.3 x10^3/uL (1.8-7.7); NEUT % 66 % (31-73); PLATELET COUNT 269 x10^3/uL (140-400); RED BLOOD COUNT 3.75 x10^6/uL (4.30-5.70); RED CELL DISTRIBUTION WIDTH 15.1 % (11.5-14.5); WHITE BLOOD COUNT 6.5 x10^3/uL (4.0-11.0)
[2019-02-18 14:44] LABS: CALCIUM 8.4 mg/dL (8.5-10.1); CREATININE 1.3 mg/dL (0.7-1.3); GFR 64.9; POTASSIUM 4.3 mmol/L (3.5-5.1)
[2019-02-18 14:55] LABS: ALBUMIN 2.8 g/dL (3.4-5.0); ALBUMIN/GLOBULIN RATIO 0.7 (1.0-1.7); TOTAL BILIRUBIN 0.3 mg/dL (0.2-1.0); TOTAL PROTEIN 6.6 g/dL (6.4-8.2)
[2019-02-18] MEDS ORDERED: AZITHROMYCIN 250 MG TABLET. PO ONE (15:15)
[2019-02-18] MEDS ORDERED: cefTRIAXone IM 1 GM VIAL IM ONE (15:15)
[2019-02-18] MEDS ORDERED: predniSONE 10 MG TABLET PO ONE (15:15)
[2019-02-18] MEDS ORDERED: ONDANSETRON ODT 4 MG TAB.RAPDIS. PO ONE (15:15)
[2019-02-18] MEDS ORDERED: ACETAMINOPHEN 325 MG TABLET. PO PRN (15:45)
[2019-02-18] MEDS ORDERED: fentaNYL PF VIAL 100 MCG/2 ML VIAL IV PRN (15:45)
[2019-02-18] MEDS ORDERED: ONDANSETRON PF 4 MG/2 ML VIAL. IV PRN (15:45)
[2019-02-18] MEDS: IPRATRPIUM/ALBUTEROL 0.5/2.5MG 3 ML NEBU. NEB SCH ×2 (16:00→19:46)
[2019-02-18 17:30] VITALS: BP 174/92
[2019-02-18] MEDS ORDERED: ATOR20TA58 PO (17:38)
[2019-02-18] MEDS ORDERED: LOSA-73 PO (17:38)
[2019-02-18 19:43] VITALS: BP 114/95
[2019-02-18 21:54] LABS: INFLUENZA A PATIENT NEGATIVE (NEGATIVE); INFLUENZA B PATIENT NEGATIVE (NEGATIVE)
[2019-02-18 23:50] VITALS: BP 201/90
[2019-02-19 03:45] VITALS: BP 182/83
[2019-02-19] MEDS: IPRATRPIUM/ALBUTEROL 0.5/2.5MG 3 ML NEBU. NEB SCH ×3 (07:16→19:34)
[2019-02-19 07:33] VITALS: BP 166/79
--- NOTE | 2019-02-19 10:29 | PDOC ---
Provider Note Provider Note Pt seen.H&P dictated.#[id number]. SLADE LOERA MD Feb 19, 2019 10:29
[2019-02-19] MEDS: IV NORMAL SALINE 1000ML BAG 1,000 ML IV SCH (10:30)
--- NOTE | 2019-02-19 10:44 | HP ---
ADMIT DATE: 02/18/2019 LOCATION: [facility]. REASON FOR ADMISSION TO THE HOSPITAL: 1. Community-acquired pneumonia. 2. Emphysema. PRIMARY CARE PHYSICIAN: Dr. Cobb. ATTENDING PHYSICIAN: Mary Loera MD HISTORY OF PRESENT ILLNESS: The patient is a 78-year-old male with history of chronic COPD, active smoker, was not feeling well for one week, coughing up green, yellow; got progressively worse with wheezing, was brought to the hospital. X-ray shows infiltrates in the lung. White count was normal. Culture was done, started on Zithromax and Rocephin and also IV Solu-Medrol and breathing treatments. PAST MEDICAL HISTORY: History of asthma, COPD, diabetes, hypertension, hyperlipidemia, prostatitis, emphysema. SURGICAL HISTORY: Left lower lobectomy, toes removed from the right leg in the past. ALLERGIES: LISINOPRIL. MEDICATIONS AT HOME: The patient is on atorvastatin 20 mg daily, Lasix 40 mg daily, isosorbide 120 mg daily, losartan 50 mg daily, albuterol inhaler. PERSONAL HISTORY: Smokes 1 pack for 30 years, cut it down to half a pack. Denies alcohol or drug abuse. REVIEW OF SYSTEMS: Complains of cough, not feeling well, sputum and wheezing. Rest of the 14-system review is negative. FAMILY HISTORY: Unremarkable. PHYSICAL EXAMINATION: GENERAL: The patient is not in distress. VITAL SIGNS: Temperature 98, pulse 85, respirations 26, blood pressure 182/84, 86 on room air, 100% on 2 liters. HEENT: Head is atraumatic. Pupils equal. Oral cavity, slight congestion, posterior pharynx. NECK: Supple. Thyroid is not enlarged. JVD is not elevated. CHEST: Symmetrical, scar. LUNGS: Bilateral wheezing. CARDIOVASCULAR: S1, S2. ABDOMEN: Soft, bowel sounds present, no mass palpable. EXTERNAL GENITALIA: No Champion. RECTAL: Deferred. EXTREMITIES: No calf tenderness, no edema. NEUROLOGIC: Moving all extremities. No focal deficits noted. LABORATORY DATA: Shows a white count of 6, hemoglobin 10, platelets 269. Electrolytes: Sodium 144, potassium 4.3, chloride 105, bicarbonate 31, BUN 22, creatinine 1.3, glucose 141. Influenza A and B was negative. IMAGING: Chest x-ray shows a right middle lobe, right lower lobe scarring and interstitial lung disease probable. FINAL IMPRESSION: 1. Pneumonia bilateral suspect gram neg and gram positive. 2. Chronic obstructive pulmonary disease. 3. History of lung surgery, lobectomy. 4. Smoker, active. 5. Hypertension. 6. Possible coronary artery disease. 7. Previous amputation of the toes rt leg . PLAN: At this time, admit to hospital, IV Solu-Medrol, IV Zithromax, Rocephin, pulmonary consult, CT of the chest, DVT prevention and see how the patient improves, He is on oxygen and DuoNeb.sputum and blood c/s. MARY LOERA MD DR: AUGUSTA/taylor JOB#: [id number] / [id number] Melisas Gonzalez MTDRuddy
[2019-02-19 11:07] VITALS: BP 146/52
--- NOTE | 2019-02-19 11:37 | RAD ---
PORTABLE CHEST 1V Clinical indications: PICC placement COMPARISON: May 29, 2018. February 18, 2019. Findings: Right upper extremity PICC line has been placed and the tip is seen within the lower SVC at the junction with the right atrium. No pneumothorax is seen. Again seen is chronic pleural thickening and scarring of the right lung base. No new lung infiltrate or pulmonary edema is seen. The heart size, pulmonary vasculature, mediastinum and both hair are stable. Impression: No new radiographic abnormality is seen. Electronically signed by: Junior Olivera MD (02/19/2019 11:34 AM) [facility]
[2019-02-19] MEDS: ENOXAPARIN 40 MG/0.4 ML SYRINGE. SQ SCH (11:49)
[2019-02-19] MEDS: ISOSORBIDE MONONITRATE ER 30 MG TAB.ER.24H PO SCH (11:50)
[2019-02-19] MEDS: methylPREDNISolone SOD SUCC PF 40 MG/ML VIAL. IV SCH ×3 (11:51→22:47)
[2019-02-19] MEDS: LOSARTAN POTASSIUM 50 MG TABLET. PO SCH (12:51)
--- NOTE | 2019-02-19 13:11 | NUR ---
SS following for discharge planning. SS reviewed pt chart. Pt is from home with spouse and is currently on room air. PT/OT ordered. SS will continue to follow for discharge planning.
[2019-02-19 14:59] VITALS: BP 158/74
[2019-02-19] MEDS: cefTRIAXone IV Push 1 GM VIAL. IVP SCH (15:07)
[2019-02-19] MEDS: AZITHROMYCIN 500 MG in IV NORMAL SALINE 250ML 250 ML IV SCH (15:11)
--- NOTE | 2019-02-19 16:54 | PDOC ---
PULMONARY PROGRESS NOTES Vitals Vital Signs Date Time Temp Pulse Resp B/P (MAP) Pulse Ox O2 Delivery O2 Flow Rate FiO2 02/19/19 16:00 97 Nasal Cannula 2.0 02/19/19 14:59 98.4 88 158/74 (102) 98.4 02/19/19 11:07 18 General: Alert, Oriented X4, No acute distress HEENT: Other Lungs: Clear, Other Cardiovascular: S1, S2 Abdomen: Soft, Non-tender, Other Extremities: No Edema, Other Labs Laboratory Tests Test 02/18/19 12:02 02/18/19 13:00 02/18/19 14:20 02/18/19 17:18 Glucose (Fingerstick) 141 mg/dL (70-99) 102 mg/dL (70-99) Influenza Type A Antigen Negative (NEGATIVE) Influenza Type B Antigen Negative (NEGATIVE) White Blood Count 6.5 x10^3/uL (4.0-11.0) Red Blood Count 3.75 x10^6/uL (4.30-5.70) Hemoglobin 10.4 g/dL (13.0-17.5) Hematocrit 32.2 % (39.0-53.0) Mean Corpuscular Volume 86 fL (79-100) Mean Corpuscular Hemoglobin 28 pg (25-35) Mean Corpuscular Hemoglobin Concent 32 g/dL (31-37) Red Cell Distribution Width 15.1 % (11.5-14.5) Platelet Count 269 x10^3/uL (140-400) Neutrophils (%) (Auto) 66 % (31-73) Lymphocytes (%) (Auto) 16 % (24-48) Monocytes (%) (Auto) 15 % (0-9) Eosinophils (%) (Auto) 2 % (0-3) Basophils (%) (Auto) 0 % (0-3) Neutrophils # (Auto) 4.3 x10^3/uL (1.8-7.7) Lymphocytes # (Auto) 1.1 x10^3/uL (1.0-4.8) Monocytes # (Auto) 1.0 x10^3/uL (0.0-1.1) Eosinophils # (Auto) 0.1 x10^3/uL (0.0-0.7) Basophils # (Auto) 0.0 x10^3/uL (0.0-0.2) Sodium Level 144 mmol/L (136-145) Potassium Level 4.3 mmol/L (3.5-5.1) Chloride Level 105 mmol/L (98-107) Carbon Dioxide Level 31 mmol/L (21-32) Anion Gap 8 (6-14) Blood Urea Nitrogen 22 mg/dL (8-26) Creatinine 1.3 mg/dL (0.7-1.3) Estimated GFR (Cockcroft-Gault) 64.9 BUN/Creatinine Ratio 17 (6-20) Glucose Level 154 mg/dL (70-99) Lactic Acid Level 1.0 mmol/L (0.4-2.0) Calcium Level 8.4 mg/dL (8.5-10.1) Total Bilirubin 0.3 mg/dL (0.2-1.0) Aspartate Amino Transf (AST/SGOT) 14 U/L (15-37) Alanine Aminotransferase (ALT/SGPT) 16 U/L (16-63) Alkaline Phosphatase 88 U/L (46-116) Troponin I Quantitative < 0.017 ng/mL (0.000-0.055) Total Protein 6.6 g/dL (6.4-8.2) Albumin 2.8 g/dL (3.4-5.0) Albumin/Globulin Ratio 0.7 (1.0-1.7) Test 02/18/19 20:56 02/19/19 07:13 02/19/19 11:27 Glucose (Fingerstick) 346 mg/dL (70-99) 139 mg/dL (70-99) 158 mg/dL (70-99) Laboratory Tests Test 02/18/19 17:18 02/18/19 20:56 02/19/19 07:13 02/19/19 11:27 Glucose (Fingerstick) 102 mg/dL (70-99) 346 mg/dL (70-99) 139 mg/dL (70-99) 158 mg/dL (70-99) Medications Active Scripts Medications Dose Route/Sig Max Daily Dose Days Date Category Atorvastatin Calcium 20 Mg Tablet 1 Tab PO HS 02/18/19 Reported Losartan Potassium 50 Mg Tablet 25 Mg PO DAILY 02/18/19 Reported Proair Hfa Inhaler (Albuterol Sulfate) 8.5 Gm Hfa.aer.ad 1 Puff INH PRN Q6HRS PRN 08/01/18 Rx Albuterol Sulfate Neb Soln (Albuterol Sulfate) 2.5 Mg/3 Ml Vial.neb 1 Vial NEB PRN Q4HRS PRN 08/01/18 Rx Lasix (Furosemide) 40 Mg Tablet 1 Tab PO DAILY 10/07/16 Rx Isosorbide Mononitrate Er (Isosorbide Mononitrate) 120 Mg Tab.er.24h 120 Mg PO DAILY 06/21/16 Reported Impression . FULL NOTE DICTATED BRAD INFILTRATES AECODP PNEUMONIA POSSIBLE NON TB MYCOBACTERIUM DOUGIE RIVAS MD Feb 19, 2019 16:54
[2019-02-19] MEDS ORDERED: DEXTROSE 50% 25 GM / 50ML DISP.SYRIN. IV PRN (17:30)
--- NOTE | 2019-02-19 17:52 | RAD ---
CT study of the chest without dkuemnza-mujm-[id number] study Clinical indications: Cough. Pain. Lung infiltrates. COMPARISON: December 11, 2017. TECHNIQUE: Noncontrast high-resolution chest CT imaging was performed in inspiration and expiration and prone and supine positioning. PQRS compliance Statement One or more of the following individualized dose reduction techniques were utilized for this study: 1. Automated exposure control 2. Adjustment of the mA and/or kV according to patient size 3. Use of iterative reconstruction technique FINDINGS: No enlarged thoracic lymphadenopathy is evident. No focal aneurysmal dilatation of the thoracic aorta is seen. Calcified atheromatous disease of the coronary arteries is seen. No pericardial effusion is seen. Heart size is normal. No pleural effusion is seen. No significant air-trapping is seen with expiration. No significant dependent atelectasis is seen. Bilateral peribronchial thickening is seen consistent with bronchitis. There is mild bronchiectasis bilaterally. There is chronic scarring within the right lower lobe. However, there is a new mild fine nodular lung infiltrates within the right lower lobe and the right middle lobe which demonstrate a tree-in-bud appearance. Similar less prominent lung infiltrate with additional groundglass appearance is seen within the lateral posterior basal segments of the left lower lobe and the superior segment of the left lower lobe. Additional nodular lung infiltrates with tree-in-bud appearance are seen within the superior and inferior segments of the lingula. These lung infiltrates may be seen with distal airway inflammatory or infectious disease. No lung consolidation is seen otherwise. There is chronic left apical scarring which is stable. There is some nodularity within the distal trachea and the right mainstem bronchus and bronchus intermedius. This most likely represents adherent mucus. No lytic process is seen. IMPRESSION: New bilateral nodular lung infiltrates with a tree-in-bud appearance consistent with distal airway inflammatory or infectious disease. Bilateral bronchitis and mild bronchiectasis is seen. In addition, there is some nodularity of the distal trachea and the right bronchial tree which may represent adherent mucus. Calcified atheromatous disease of the coronary arteries. Normal heart size. Electronically signed by: Junior Olivera MD (02/19/2019 5:49 PM) [facility]
[2019-02-19] MEDS: POLYETHYLENE GLYCOL 3350 17 GM PACKET. PO PRN (17:55)
[2019-02-19] MEDS: INSULIN LISPRO 300 UNITS/3 ML VIAL. SQ SCH (18:03)
[2019-02-19 19:10] VITALS: BP 156/82
[2019-02-19] MEDS: guaiFENesin DM 600/30MG 1 TAB TAB.ER.12H PO SCH (20:38)
[2019-02-19] MEDS: ATORVASTATIN CALCIUM 20 MG TABLET PO SCH (20:38)
[2019-02-19] MEDS: LACTOBACILLUS RHAMNOSUS GG 1 CAPSULE. PO SCH (20:38)
[2019-02-19] MEDS: INSULIN GLARGINE SYRINGE. SQ SCH (22:48)
[2019-02-19 23:39] VITALS: BP 186/92
[2019-02-20] MEDS: IV NORMAL SALINE 1000ML BAG 1,000 ML IV SCH (00:40)
[2019-02-20 03:59] VITALS: BP 175/82
--- NOTE | 2019-02-20 04:14 | CONS ---
DATE OF CONSULTATION: 02/19/2019 ATTENDING PHYSICIAN: Dr. Mary Gandhi. REASON FOR CONSULTATION: The patient seen in pulmonary consultation at the request of Dr. Gandhi for abnormal CT chest, increasing shortness of air. HISTORY OF PRESENT ILLNESS: The patient is a 78-year-old male with a history of COPD, continues to smoke, I have known him for many, many years now. He presents with progressive dyspnea, tachypnea, cough, mostly nonproductive. No hemoptysis, some subjective fever. He had a chest x-ray and subsequent CT. CT revealed some ill-defined infiltrates. He is currently receiving IV antibiotics and IV Solu-Medrol. I was asked to see him in consultation. PAST MEDICAL HISTORY: COPD, tobacco dependent, diabetes, hypertension, hyperlipidemia, prostatitis. He has had previous thoracotomy. PAST SURGICAL HISTORY: He has had previous toe removed. ALLERGIES: LISINOPRIL. MEDICATIONS: List was reviewed. SOCIAL HISTORY: He continues to smoke less than half a pack of cigarettes a day. Denies any current use of alcohol. REVIEW OF SYSTEMS: CONSTITUTIONAL: No fever or chills. EYES: No change in visual acuity. HENT: No nasal congestion or sore throat. PULMONARY: As indicated above. CARDIOVASCULAR: No chest pain. No pressure. GASTROINTESTINAL: No nausea, vomiting, diarrhea. GENITOURINARY: No dysuria or frequency. MUSCULOSKELETAL: No localized muscle aches or joint pains. SKIN: No new skin rashes. NEUROLOGIC: No headaches, diplopia, or blurred vision. PHYSICAL EXAMINATION: GENERAL: The patient was in no respiratory distress. VITAL SIGNS: Stable. O2 saturation was greater than 92%. HEENT: Eyes, the sclerae were nonicteric. NECK: Jugular venous distention was not elevated. No lymphadenopathy. CHEST: Full expansion. LUNGS: Bilateral rhonchi with expiratory wheeze. CARDIOVASCULAR: Regular rate and rhythm with S1, S2, no S3. ABDOMEN: Soft, nontender, nondistended. EXTREMITIES: No clubbing, cyanosis, or edema. NEUROLOGICAL: The patient was awake, alert, following commands. A detailed neuro exam was not performed. LABORATORY DATA: Chest x-ray was reviewed. CT revealed some ill-defined infiltrates. White count was normal. Electrolytes were noted. IMPRESSION: 1. Abnormal CT chest revealing bilateral pulmonary infiltrates compatible with gram-negative pneumonia, possible gram-positive. If no improvement, consider atypical infection such as nontuberculous Mycobacterium. 2. Acute exacerbation of chronic obstructive pulmonary disease. 3. Acute hypoxemic respiratory failure. 4. Tobacco dependent. 5. Multiple comorbidities, diabetes, hypertension, previous thoracotomy. PLAN: 1. Continue current IV antibiotics. 2. Follow clinical course. 3. The patient instructed on the importance of discontinuing tobacco use. I do appreciate the privilege in sharing in the patient's care. DOUGIE RIVAS MD DR: MERYL/taylor JOB#: [id number] / [id number]
[2019-02-20] MEDS: methylPREDNISolone SOD SUCC PF 40 MG/ML VIAL. IV SCH ×3 (05:58→21:19)
[2019-02-20 06:35] LABS: BASO % 0 % (0-3); EOS % 0 % (0-3); HEMATOCRIT 28.6 % (39.0-53.0); HEMOGLOBIN 9.2 g/dL (13.0-17.5); LYMPH # 0.8 x10^3/uL (1.0-4.8); LYMPH % 10 % (24-48); MEAN CORPUSCULAR HEMOGLOBIN 28 pg (25-35); MEAN CORPUSCULAR HGB CONC 32 g/dL (31-37); MEAN CORPUSCULAR VOLUME 86 fL (79-100); MONO # 0.6 x10^3/uL (0.0-1.1); MONO % 8 % (0-9); NEUT # 6.7 x10^3/uL (1.8-7.7); NEUT % 82 % (31-73); PLATELET COUNT 278 x10^3/uL (140-400); RED BLOOD COUNT 3.34 x10^6/uL (4.30-5.70); RED CELL DISTRIBUTION WIDTH 15.4 % (11.5-14.5); WHITE BLOOD COUNT 8.1 x10^3/uL (4.0-11.0)
[2019-02-20 06:53] LABS: CALCIUM 8.4 mg/dL (8.5-10.1); CHOLESTEROL/HDL RATIO 4.2; CREATININE 1.2 mg/dL (0.7-1.3); GFR 71.2; POTASSIUM 5.1 mmol/L (3.5-5.1)
[2019-02-20 07:00] VITALS: BP 189/101
[2019-02-20] MEDS: IPRATRPIUM/ALBUTEROL 0.5/2.5MG 3 ML NEBU. NEB SCH ×4 (07:40→20:14)
[2019-02-20] MEDS: LACTOBACILLUS RHAMNOSUS GG 1 CAPSULE. PO SCH ×2 (08:55→21:19)
[2019-02-20] MEDS: guaiFENesin DM 600/30MG 1 TAB TAB.ER.12H PO SCH ×2 (08:55→21:19)
[2019-02-20] MEDS: ISOSORBIDE MONONITRATE ER 30 MG TAB.ER.24H PO SCH (08:55)
[2019-02-20] MEDS: FUROSEMIDE 40 MG TABLET. PO SCH (08:55)
[2019-02-20] MEDS: LOSARTAN POTASSIUM 50 MG TABLET. PO SCH (08:56)
[2019-02-20] MEDS: hydrALAZINE 25 MG TABLET PO SCH ×3 (09:00→21:19)
[2019-02-20] MEDS: INSULIN LISPRO 300 UNITS/3 ML VIAL. SQ SCH ×6 (09:37→17:00)
--- NOTE | 2019-02-20 09:55 | PDOC ---
PROGRESS NOTES Subjective Subjective feels better ,less sob Objective Objective Vital Signs Date Time Temp Pulse Resp B/P (MAP) Pulse Ox O2 Delivery O2 Flow Rate FiO2 02/20/19 09:00 64 189/101 02/20/19 07:40 96 Room Air 02/20/19 07:00 98.2 16 2.0 98.2 Intake and Output 02/20/19 07:00 Intake Total 1630 ml Output Total 350 ml Balance 1280 ml Intake Oral 1630 ml Output Urine Total 350 ml # Voids 4 Physical Exam Abdomen: Normal bowel sounds, Soft Heart: Regular rate, Normal S1, Normal S2 Extremities: No clubbing General: Alert HEENT: Atraumatic, Other (dec wheezing) MUSCULOSKELETAL: Osteoarthritic changes both hands Neck: Supple Neuro: Normal speech Psych/Mental Status: Mental status NL Skin: No breakdown Diagnosis Problem List Problems Medical Problems: (1) Pneumonia Status: Acute Assessment Assessment Problems Medical Problems: (1) Pneumonia Status: Acute FINAL IMPRESSION: 1. Pneumonia bilateral suspect gram neg and gram positive. 2. Chronic obstructive pulmonary disease.Acute exacerbration 3. History of lung surgery, lobectomy rt . 4. Smoker, active. 5. Hypertension. 6. Possible coronary artery disease.PVD . 7. 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 Plan Plan of Care Problems Medical Problems: (1) Pneumonia Status: Acute Comment Review of Relevant I have reviewed the following items valerie (where applicable) has been applied. Labs Laboratory Tests Test 02/19/19 11:27 02/19/19 17:00 02/19/19 20:23 02/20/19 06:00 Glucose (Fingerstick) 158 mg/dL (70-99) 256 mg/dL (70-99) 362 mg/dL (70-99) White Blood Count 8.1 x10^3/uL (4.0-11.0) Red Blood Count 3.34 x10^6/uL (4.30-5.70) Hemoglobin 9.2 g/dL (13.0-17.5) Hematocrit 28.6 % (39.0-53.0) Mean Corpuscular Volume 86 fL (79-100) Mean Corpuscular Hemoglobin 28 pg (25-35) Mean Corpuscular Hemoglobin Concent 32 g/dL (31-37) Red Cell Distribution Width 15.4 % (11.5-14.5) Platelet Count 278 x10^3/uL (140-400) Neutrophils (%) (Auto) 82 % (31-73) Lymphocytes (%) (Auto) 10 % (24-48) Monocytes (%) (Auto) 8 % (0-9) Eosinophils (%) (Auto) 0 % (0-3) Basophils (%) (Auto) 0 % (0-3) Neutrophils # (Auto) 6.7 x10^3/uL (1.8-7.7) Lymphocytes # (Auto) 0.8 x10^3/uL (1.0-4.8) Monocytes # (Auto) 0.6 x10^3/uL (0.0-1.1) Eosinophils # (Auto) 0.0 x10^3/uL (0.0-0.7) Basophils # (Auto) 0.0 x10^3/uL (0.0-0.2) Sodium Level 139 mmol/L (136-145) Potassium Level 5.1 mmol/L (3.5-5.1) Chloride Level 105 mmol/L (98-107) Carbon Dioxide Level 28 mmol/L (21-32) Anion Gap 6 (6-14) Blood Urea Nitrogen 29 mg/dL (8-26) Creatinine 1.2 mg/dL (0.7-1.3) Estimated GFR (Cockcroft-Gault) 71.2 Glucose Level 170 mg/dL (70-99) Calcium Level 8.4 mg/dL (8.5-10.1) Triglycerides Level 67 mg/dL (0-150) Cholesterol Level 161 mg/dL (0-200) LDL Cholesterol, Calculated 110 mg/dL (0-100) VLDL Cholesterol, Calculated 13 mg/dL (0-40) Non-HDL Cholesterol Calculated 123 mg/dL (0-129) HDL Cholesterol 38 mg/dL (40-60) Cholesterol/HDL Ratio 4.2 Thyroid Stimulating Hormone (TSH) 0.208 uIU/mL (0.358-3.74) Test 02/20/19 07:34 Glucose (Fingerstick) 161 mg/dL (70-99) Microbiology 02/18/19 Blood Culture - Preliminary, Resulted NO GROWTH AFTER 1 DAY Medications Current Medications Albuterol/ Ipratropium (Duoneb) 3 ml RTQID NEB Last administered on 02/20/19 07:40; Start 02/20/19 at 08:00 Atorvastatin Calcium (Lipitor) 20 mg HS PO Last administered on 02/19/19 20:38; Start 02/19/19 at 21:00 Azithromycin 500 mg/Sodium Chloride 250 ml @ 250 mls/hr Q24H IV Last admi nistered on 02/19/19 15:11; Start 02/19/19 at 16:00 Ceftriaxone Sodium (Rocephin) 1 gm Q24H IVP Last administered on 02/19/19at 15:07; Start 02/19/19 at 14:00 Dextrose (Dextrose 50%-Water Syringe) 12.5 gm PRN Q15MIN PRN IV SEE COMMENTS; Start 02/19/19 at 17:30 Enoxaparin Sodium (Lovenox 40mg Syringe) 40 mg Q24H SQ Last administered on 02/19/19 11:49; Start 02/19/19 at 11:00 Furosemide (Lasix) 40 mg DAILY PO Last administered on 02/20/19 08:55; Start 02/20/19 at 09:00 Guaifenesin (MUCINEX ER with DM) 1 tab BID PO Last administered on 02/20/19 08:55; Start 02/19/19 at 21:00 Hydralazine HCl (Apresoline) 25 mg TID PO Last administered on 02/20/19 09:00; Start 02/20/19 at 09:00 Insulin Glargine (Lantus Syringe) 10 unit QHS SQ Last administered on 02/19/19at 22:48; Start 02/19/19 at 22:00 Insulin Human Lispro (HumaLOG) 0-9 UNITS TIDWMEALS SQ Last administered on 1 09:37; Start 02/19/19 at 18:00 Insulin Human Lispro (HumaLOG) 5 units TIDAC SQ Last administered on 02/20/19 09:37; Start 02/20/19 at 07:30 Isosorbide Mononitrate (Imdur) 120 mg DAILY PO Last administered on 02/20/19 08:55; Start 02/19/19 at 10:30 Lactobacillus Rhamnosus (Culturelle) 1 cap BID PO Last administered on 02/20/19 08:55; Start 02/19/19 at 21:00 Losartan Potassium (Cozaar) 25 mg DAILY PO Last administered on 02/20/19 08:56; Start 02/19/19 at 10:30 Methylprednisolone Sodium Succinate (SOLU-Medrol 40MG VIAL) 40 mg Q8HRS IV Last administered on 02/20/19 05:58; Start 02/19/19 at 10:30 Polyethylene Glycol (miraLAX PACKET) 17 gm PRN BID PRN PO CONSTIPATION Last administered on 02/19/19 17:55; Start 02/19/19 at 10:30 Sodium Chloride 1,000 ml @ 75 mls/hr [id number] IV Last administered on 02/20/19 00:40; Start 02/19/19 at 10:30 Vitals/I & O Vital Sign - Last 24 Hours 02/19/19 02/19/19 02/19/19 02/19/19 11:07 11:10 11:18 11:50 Temp 98.9 98.4 98.9 98.4 Pulse 68 68 68 Resp 18 B/P (MAP) 146/52 (83) 146/52 Pulse Ox 100 95 97 O2 Delivery Room Air Nasal Cannula Nasal Cannula O2 Flow Rate 2.0 2.0 02/19/19 02/19/19 02/19/19 02/19/19 12:51 14:59 16:00 19:10 Temp 98.4 98.0 98.4 98.0 Pulse 68 88 88 Resp 18 B/P (MAP) 146/52 158/74 (102) 156/82 (106) Pulse Ox 96 97 97 O2 Delivery Nasal Cannula Nasal Cannula Nasal Cannula O2 Flow Rate 2.0 2.0 2.0 02/19/19 02/19/19 02/19/19 02/20/19 19:35 20:00 23:39 03:59 Temp 97.9 98.2 97.9 98.2 Pulse 76 55 Resp 20 16 B/P (MAP) 186/92 (123) 175/82 (113) Pulse Ox 94 94 94 O2 Delivery Room Air Nasal Cannula Nasal Cannula Nasal Cannula O2 Flow Rate 2.0 2.0 2.0 02/20/19 02/20/19 02/20/19 02/20/19 07:00 07:40 08:55 08:56 Temp 98.2 98.2 Pulse 64 64 64 Resp 16 B/P (MAP) 189/101 (130) 189/101 189/101 Pulse Ox 96 96 O2 Delivery Nasal Cannula Room Air O2 Flow Rate 2.0 02/20/19 09:00 Pulse 64 B/P (MAP) 189/101 Intake and Output 02/19/19 02/19/19 02/20/19 15:00 23:00 07:00 Intake Total 580 ml 150 ml 900 ml Output Total 350 ml Balance 580 ml 150 ml 550 ml SLADE LOERA MD Feb 20, 2019 09:55
--- NOTE | 2019-02-20 10:18 | PDOC ---
PULMONARY PROGRESS NOTES Subjective PT WITH STILL SOA UNABLE TO WALK TO BATHROOM Vitals Vital Signs Date Time Temp Pulse Resp B/P (MAP) Pulse Ox O2 Delivery O2 Flow Rate FiO2 02/20/19 09:00 64 189/101 02/20/19 07:40 96 Room Air 02/20/19 07:00 98.2 16 2.0 98.2 ROS: No Nausea, No Chest Pain, No Abdominal Pain, No Increase Cough General: Alert Lungs: Clear Cardiovascular: S1, S2 Abdomen: Soft, Non-tender, Other Neuro Exam: Alert Extremities: No Edema, Other Skin: Warm Labs Laboratory Tests Test 02/18/19 12:02 02/18/19 13:00 02/18/19 14:20 02/18/19 17:18 Glucose (Fingerstick) 141 mg/dL (70-99) 102 mg/dL (70-99) Influenza Type A Antigen Negative (NEGATIVE) Influenza Type B Antigen Negative (NEGATIVE) White Blood Count 6.5 x10^3/uL (4.0-11.0) Red Blood Count 3.75 x10^6/uL (4.30-5.70) Hemoglobin 10.4 g/dL (13.0-17.5) Hematocrit 32.2 % (39.0-53.0) Mean Corpuscular Volume 86 fL (79-100) Mean Corpuscular Hemoglobin 28 pg (25-35) Mean Corpuscular Hemoglobin Concent 32 g/dL (31-37) Red Cell Distribution Width 15.1 % (11.5-14.5) Platelet Count 269 x10^3/uL (140-400) Neutrophils (%) (Auto) 66 % (31-73) Lymphocytes (%) (Auto) 16 % (24-48) Monocytes (%) (Auto) 15 % (0-9) Eosinophils (%) (Auto) 2 % (0-3) Basophils (%) (Auto) 0 % (0-3) Neutrophils # (Auto) 4.3 x10^3/uL (1.8-7.7) Lymphocytes # (Auto) 1.1 x10^3/uL (1.0-4.8) Monocytes # (Auto) 1.0 x10^3/uL (0.0-1.1) Eosinophils # (Auto) 0.1 x10^3/uL (0.0-0.7) Basophils # (Auto) 0.0 x10^3/uL (0.0-0.2) Sodium Level 144 mmol/L (136-145) Potassium Level 4.3 mmol/L (3.5-5.1) Chloride Level 105 mmol/L (98-107) Carbon Dioxide Level 31 mmol/L (21-32) Anion Gap 8 (6-14) Blood Urea Nitrogen 22 mg/dL (8-26) Creatinine 1.3 mg/dL (0.7-1.3) Estimated GFR (Cockcroft-Gault) 64.9 BUN/Creatinine Ratio 17 (6-20) Glucose Level 154 mg/dL (70-99) Lactic Acid Level 1.0 mmol/L (0.4-2.0) Calcium Level 8.4 mg/dL (8.5-10.1) Total Bilirubin 0.3 mg/dL (0.2-1.0) Aspartate Amino Transf (AST/SGOT) 14 U/L (15-37) Alanine Aminotransferase (ALT/SGPT) 16 U/L (16-63) Alkaline Phosphatase 88 U/L (46-116) Troponin I Quantitative < 0.017 ng/mL (0.000-0.055) Total Protein 6.6 g/dL (6.4-8.2) Albumin 2.8 g/dL (3.4-5.0) Albumin/Globulin Ratio 0.7 (1.0-1.7) Test 02/18/19 20:56 02/19/19 07:13 02/19/19 11:27 02/19/19 17:00 Glucose (Fingerstick) 346 mg/dL (70-99) 139 mg/dL (70-99) 158 mg/dL (70-99) 256 mg/dL (70-99) Test 02/19/19 20:23 02/20/19 06:00 02/20/19 07:34 Glucose (Fingerstick) 362 mg/dL (70-99) 161 mg/dL (70-99) White Blood Count 8.1 x10^3/uL (4.0-11.0) Red Blood Count 3.34 x10^6/uL (4.30-5.70) Hemoglobin 9.2 g/dL (13.0-17.5) Hematocrit 28.6 % (39.0-53.0) Mean Corpuscular Volume 86 fL (79-100) Mean Corpuscular Hemoglobin 28 pg (25-35) Mean Corpuscular Hemoglobin Concent 32 g/dL (31-37) Red Cell Distribution Width 15.4 % (11.5-14.5) Platelet Count 278 x10^3/uL (140-400) Neutrophils (%) (Auto) 82 % (31-73) Lymphocytes (%) (Auto) 10 % (24-48) Monocytes (%) (Auto) 8 % (0-9) Eosinophils (%) (Auto) 0 % (0-3) Basophils (%) (Auto) 0 % (0-3) Neutrophils # (Auto) 6.7 x10^3/uL (1.8-7.7) Lymphocytes # (Auto) 0.8 x10^3/uL (1.0-4.8) Monocytes # (Auto) 0.6 x10^3/uL (0.0-1.1) Eosinophils # (Auto) 0.0 x10^3/uL (0.0-0.7) Basophils # (Auto) 0.0 x10^3/uL (0.0-0.2) Sodium Level 139 mmol/L (136-145) Potassium Level 5.1 mmol/L (3.5-5.1) Chloride Level 105 mmol/L (98-107) Carbon Dioxide Level 28 mmol/L (21-32) Anion Gap 6 (6-14) Blood Urea Nitrogen 29 mg/dL (8-26) Creatinine 1.2 mg/dL (0.7-1.3) Estimated GFR (Cockcroft-Gault) 71.2 Glucose Level 170 mg/dL (70-99) Calcium Level 8.4 mg/dL (8.5-10.1) Triglycerides Level 67 mg/dL (0-150) Cholesterol Level 161 mg/dL (0-200) LDL Cholesterol, Calculated 110 mg/dL (0-100) VLDL Cholesterol, Calculated 13 mg/dL (0-40) Non-HDL Cholesterol Calculated 123 mg/dL (0-129) HDL Cholesterol 38 mg/dL (40-60) Cholesterol/HDL Ratio 4.2 Thyroid Stimulating Hormone (TSH) 0.208 uIU/mL (0.358-3.74) Laboratory Tests Test 02/19/19 11:27 02/19/19 17:00 02/19/19 20:23 02/20/19 06:00 Glucose (Fingerstick) 158 mg/dL (70-99) 256 mg/dL (70-99) 362 mg/dL (70-99) White Blood Count 8.1 x10^3/uL (4.0-11.0) Red Blood Count 3.34 x10^6/uL (4.30-5.70) Hemoglobin 9.2 g/dL (13.0-17.5) Hematocrit 28.6 % (39.0-53.0) Mean Corpuscular Volume 86 fL (79-100) Mean Corpuscular Hemoglobin 28 pg (25-35) Mean Corpuscular Hemoglobin Concent 32 g/dL (31-37) Red Cell Distribution Width 15.4 % (11.5-14.5) Platelet Count 278 x10^3/uL (140-400) Neutrophils (%) (Auto) 82 % (31-73) Lymphocytes (%) (Auto) 10 % (24-48) Monocytes (%) (Auto) 8 % (0-9) Eosinophils (%) (Auto) 0 % (0-3) Basophils (%) (Auto) 0 % (0-3) Neutrophils # (Auto) 6.7 x10^3/uL (1.8-7.7) Lymphocytes # (Auto) 0.8 x10^3/uL (1.0-4.8) Monocytes # (Auto) 0.6 x10^3/uL (0.0-1.1) Eosinophils # (Auto) 0.0 x10^3/uL (0.0-0.7) Basophils # (Auto) 0.0 x10^3/uL (0.0-0.2) Sodium Level 139 mmol/L (136-145) Potassium Level 5.1 mmol/L (3.5-5.1) Chloride Level 105 mmol/L (98-107) Carbon Dioxide Level 28 mmol/L (21-32) Anion Gap 6 (6-14) Blood Urea Nitrogen 29 mg/dL (8-26) Creatinine 1.2 mg/dL (0.7-1.3) Estimated GFR (Cockcroft-Gault) 71.2 Glucose Level 170 mg/dL (70-99) Calcium Level 8.4 mg/dL (8.5-10.1) Triglycerides Level 67 mg/dL (0-150) Cholesterol Level 161 mg/dL (0-200) LDL Cholesterol, Calculated 110 mg/dL (0-100) VLDL Cholesterol, Calculated 13 mg/dL (0-40) Non-HDL Cholesterol Calculated 123 mg/dL (0-129) HDL Cholesterol 38 mg/dL (40-60) Cholesterol/HDL Ratio 4.2 Thyroid Stimulating Hormone (TSH) 0.208 uIU/mL (0.358-3.74) Test 02/20/19 07:34 Glucose (Fingerstick) 161 mg/dL (70-99) Medications Active Scripts Medications Dose Route/Sig Max Daily Dose Days Date Category Atorvastatin Calcium 20 Mg Tablet 1 Tab PO HS 02/18/19 Reported Losartan Potassium 50 Mg Tablet 25 Mg PO DAILY 02/18/19 Reported Proair Hfa Inhaler (Albuterol Sulfate) 8.5 Gm Hfa.aer.ad 1 Puff INH PRN Q6HRS PRN 08/01/18 Rx Albuterol Sulfate Neb Soln (Albuterol Sulfate) 2.5 Mg/3 Ml Vial.neb 1 Vial NEB PRN Q4HRS PRN 08/01/18 Rx Lasix (Furosemide) 40 Mg Tablet 1 Tab PO DAILY 10/07/16 Rx Isosorbide Mononitrate Er (Isosorbide Mononitrate) 120 Mg Tab.er.24h 120 Mg PO DAILY 06/21/16 Reported Impression . IMPRESSION: 1. Abnormal CT chest revealing bilateral pulmonary infiltrates compatible with gram-negative pneumonia, possible gram-positive. If no improvement, consider atypical infection such as nontuberculous Mycobacterium. 2. Acute exacerbation of chronic obstructive pulmonary disease. 3. Acute hypoxemic respiratory failure. 4. Tobacco dependent. 5. Multiple comorbidities, diabetes, hypertension, previous thoracotomy. Plan . PT VERY SOA UNABLE TO WALK TO BATHROOM WILL CONTINUE THE SAME HE MAY BENEFIT FROM PULMONARY REHAB 1. Continue current IV antibiotics. 2. Follow clinical course. 3. The patient instructed on the importance of discontinuing tobacco use. DOUGIE RIVAS MD Feb 20, 2019 10:18
[2019-02-20] MEDS: ENOXAPARIN 40 MG/0.4 ML SYRINGE. SQ SCH (11:00)
[2019-02-20 11:34] VITALS: BP 186/90
[2019-02-20] MEDS: NICOTINE 7MG PATCH. TD SCH (12:30)
--- NOTE | 2019-02-20 13:53 | NUR ---
SW following pt. PT/OT recommends home with assistance/home independent. SW will be available as needed.
[2019-02-20] MEDS: POLYETHYLENE GLYCOL 3350 17 GM PACKET. PO PRN (14:57)
[2019-02-20] MEDS: cefTRIAXone IV Push 1 GM VIAL. IVP SCH (14:58)
[2019-02-20 15:18] VITALS: BP 168/78
[2019-02-20] MEDS: AZITHROMYCIN 500 MG in IV NORMAL SALINE 250ML 250 ML IV SCH (16:30)
[2019-02-20 19:15] VITALS: BP 150/73
[2019-02-20] MEDS: ATORVASTATIN CALCIUM 20 MG TABLET PO SCH (21:19)
[2019-02-20] MEDS: INSULIN GLARGINE SYRINGE. SQ SCH (21:25)
[2019-02-20 23:15] VITALS: BP 176/89
[2019-02-21 00:08] LABS: HEMOGLOBIN A1C 6.7 % (4.8-5.6)
[2019-02-21 03:15] VITALS: BP 183/90
[2019-02-21 07:00] VITALS: BP 206/102
[2019-02-21] MEDS: methylPREDNISolone SOD SUCC PF 40 MG/ML VIAL. IV SCH (07:21)
[2019-02-21] MEDS: INSULIN LISPRO 300 UNITS/3 ML VIAL. SQ SCH ×6 (08:00→17:23)
[2019-02-21] MEDS: IPRATRPIUM/ALBUTEROL 0.5/2.5MG 3 ML NEBU. NEB SCH ×4 (08:20→20:09)
[2019-02-21] MEDS: hydrALAZINE 25 MG TABLET PO SCH ×3 (08:29→21:16)
--- NOTE | 2019-02-21 09:18 | PDOC ---
PULMONARY PROGRESS NOTES Subjective NO CHEST PAIN PT WITH STILL SOA Vitals Vital Signs Date Time Temp Pulse Resp B/P (MAP) Pulse Ox O2 Delivery O2 Flow Rate FiO2 02/21/19 08:29 86 206/102 02/21/19 08:22 99 Room Air 02/21/19 07:00 98.2 16 98.2 02/20/19 23:15 2.0 ROS: No Nausea, No Chest Pain, No Abdominal Pain, No Increase Cough General: Alert Lungs: Clear Cardiovascular: S1, S2 Abdomen: Soft, Non-tender, Other Neuro Exam: Alert Extremities: No Edema, Other Skin: Warm Labs Laboratory Tests Test 02/19/19 11:27 02/19/19 17:00 02/19/19 20:23 02/20/19 06:00 Glucose (Fingerstick) 158 mg/dL (70-99) 256 mg/dL (70-99) 362 mg/dL (70-99) White Blood Count 8.1 x10^3/uL (4.0-11.0) Red Blood Count 3.34 x10^6/uL (4.30-5.70) Hemoglobin 9.2 g/dL (13.0-17.5) Hematocrit 28.6 % (39.0-53.0) Mean Corpuscular Volume 86 fL (79-100) Mean Corpuscular Hemoglobin 28 pg (25-35) Mean Corpuscular Hemoglobin Concent 32 g/dL (31-37) Red Cell Distribution Width 15.4 % (11.5-14.5) Platelet Count 278 x10^3/uL (140-400) Neutrophils (%) (Auto) 82 % (31-73) Lymphocytes (%) (Auto) 10 % (24-48) Monocytes (%) (Auto) 8 % (0-9) Eosinophils (%) (Auto) 0 % (0-3) Basophils (%) (Auto) 0 % (0-3) Neutrophils # (Auto) 6.7 x10^3/uL (1.8-7.7) Lymphocytes # (Auto) 0.8 x10^3/uL (1.0-4.8) Monocytes # (Auto) 0.6 x10^3/uL (0.0-1.1) Eosinophils # (Auto) 0.0 x10^3/uL (0.0-0.7) Basophils # (Auto) 0.0 x10^3/uL (0.0-0.2) Sodium Level 139 mmol/L (136-145) Potassium Level 5.1 mmol/L (3.5-5.1) Chloride Level 105 mmol/L (98-107) Carbon Dioxide Level 28 mmol/L (21-32) Anion Gap 6 (6-14) Blood Urea Nitrogen 29 mg/dL (8-26) Creatinine 1.2 mg/dL (0.7-1.3) Estimated GFR (Cockcroft-Gault) 71.2 Glucose Level 170 mg/dL (70-99) Hemoglobin A1c 6.7 % (4.8-5.6) Calcium Level 8.4 mg/dL (8.5-10.1) Triglycerides Level 67 mg/dL (0-150) Cholesterol Level 161 mg/dL (0-200) LDL Cholesterol, Calculated 110 mg/dL (0-100) VLDL Cholesterol, Calculated 13 mg/dL (0-40) Non-HDL Cholesterol Calculated 123 mg/dL (0-129) HDL Cholesterol 38 mg/dL (40-60) Cholesterol/HDL Ratio 4.2 Thyroid Stimulating Hormone (TSH) 0.208 uIU/mL (0.358-3.74) Test 02/20/19 07:34 02/20/19 11:02 02/20/19 17:33 02/20/19 18:11 Glucose (Fingerstick) 161 mg/dL (70-99) 294 mg/dL (70-99) 65 mg/dL (70-99) 139 mg/dL (70-99) Test 02/20/19 21:07 02/21/19 08:17 Glucose (Fingerstick) 275 mg/dL (70-99) 121 mg/dL (70-99) Laboratory Tests Test 02/20/19 11:02 02/20/19 17:33 02/20/19 18:11 02/20/19 21:07 Glucose (Fingerstick) 294 mg/dL (70-99) 65 mg/dL (70-99) 139 mg/dL (70-99) 275 mg/dL (70-99) Test 02/21/19 08:17 Glucose (Fingerstick) 121 mg/dL (70-99) Medications Active Scripts Medications Dose Route/Sig Max Daily Dose Days Date Category Atorvastatin Calcium 20 Mg Tablet 1 Tab PO HS 02/18/19 Reported Losartan Potassium 50 Mg Tablet 25 Mg PO DAILY 02/18/19 Reported Proair Hfa Inhaler (Albuterol Sulfate) 8.5 Gm Hfa.aer.ad 1 Puff INH PRN Q6HRS PRN 08/01/18 Rx Albuterol Sulfate Neb Soln (Albuterol Sulfate) 2.5 Mg/3 Ml Vial.neb 1 Vial NEB PRN Q4HRS PRN 08/01/18 Rx Lasix (Furosemide) 40 Mg Tablet 1 Tab PO DAILY 10/07/16 Rx Isosorbide Mononitrate Er (Isosorbide Mononitrate) 120 Mg Tab.er.24h 120 Mg PO DAILY 06/21/16 Reported Impression . IMPRESSION: 1. Abnormal CT chest revealing bilateral pulmonary infiltrates compatible with gram-negative pneumonia, possible gram-positive. If no improvement, consider atypical infection such as nontuberculous Mycobacterium. 2. Acute exacerbation of chronic obstructive pulmonary disease. 3. Acute hypoxemic respiratory failure. 4. Tobacco dependent. 5. Multiple comorbidities, diabetes, hypertension, previous thoracotomy. 6. UNCONTROLLED HTN Plan . ADJUSTMENT ON BP MED AVOID B BLOCKERS PT VERY SOA WILL ASK PT TO ASSESS FOR HOME HH WILL CONTINUE THE SAME HE MAY BENEFIT FROM PULMONARY REHAB TAPER PRED OUT PT REPEAT CT IN 2-3 MONTHS DOUGIE RIVAS MD Feb 21, 2019 09:18
[2019-02-21] MEDS: ISOSORBIDE MONONITRATE ER 30 MG TAB.ER.24H PO SCH (09:21)
[2019-02-21] MEDS: LOSARTAN POTASSIUM 50 MG TABLET. PO SCH (09:21)
[2019-02-21] MEDS: NICOTINE 7MG PATCH. TD SCH (09:22)
[2019-02-21] MEDS: LACTOBACILLUS RHAMNOSUS GG 1 CAPSULE. PO SCH ×2 (09:22→21:15)
[2019-02-21] MEDS: FUROSEMIDE 40 MG TABLET. PO SCH (09:22)
[2019-02-21] MEDS: hydrALAZINE 20 MG/ML VIAL. IVP PRN (09:26)
--- NOTE | 2019-02-21 10:14 | PDOC ---
PROGRESS NOTES Subjective Subjective joaquín bp and sugars due to steroids Objective Objective Vital Signs Date Time Temp Pulse Resp B/P (MAP) Pulse Ox O2 Delivery O2 Flow Rate FiO2 02/21/19 09:26 86 206/102 02/21/19 08:22 99 Room Air 02/21/19 07:00 98.2 16 98.2 02/20/19 23:15 2.0 Intake and Output 02/21/19 07:00 Intake Total 1140 ml Output Total 700 ml Balance 440 ml Intake Oral 1140 ml Output Urine Total 700 ml # Voids 3 Physical Exam Abdomen: Normal bowel sounds, Soft Heart: Regular rate, Normal S1, Normal S2 Extremities: No clubbing General: Alert HEENT: Atraumatic, Other (dec wheezing) Lungs: Clear to auscultation MUSCULOSKELETAL: Osteoarthritic changes both hands Neck: Supple Neuro: Normal speech Psych/Mental Status: Mental status NL Skin: No breakdown Diagnosis Problem List Problems Medical Problems: (1) Pneumonia Status: Acute Assessment Assessment Problems Medical Problems: (1) Pneumonia Status: Acute FINAL IMPRESSION: 1. Pneumonia bilateral suspect gram neg and gram positive. 2. Chronic obstructive pulmonary disease.Acute exacerbration 3. History of lung surgery, lobectomy rt . 4. Smoker, active. 5. Hypertension. 6. Possible coronary artery disease.PVD . 7. 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 Plan Plan of Care Problems Medical Problems: (1) Pneumonia Status: Acute Comment Review of Relevant I have reviewed the following items valerie (where applicable) has been applied. Labs Laboratory Tests Test 02/20/19 11:02 02/20/19 17:33 02/20/19 18:11 02/20/19 21:07 Glucose (Fingerstick) 294 mg/dL (70-99) 65 mg/dL (70-99) 139 mg/dL (70-99) 275 mg/dL (70-99) Test 02/21/19 08:17 Glucose (Fingerstick) 121 mg/dL (70-99) Microbiology 02/18/19 - Final, Resulted 02/18/19 - Final, Resulted 02/18/19 - Final, Resulted 02/18/19 Gram Stain Evaluation - Final, Resulted 02/18/19 Sputum Culture, Resulted Pending 02/18/19 Blood Culture - Preliminary, Resulted NO GROWTH AFTER 2 DAYS Medications Current Medications Amlodipine Besylate (Norvasc) 5 mg DAILY PO ; Start 02/21/19 at 09:00 Hydralazine HCl (Apresoline Inj) 10 mg PRN Q4HRS PRN IVP ELEVATED BP, SEE COMMENTS Last administered on 02/21/19at 09:26; Start 02/21/19 at 08:45 Nicotine (Nicoderm Cq 7mg) 1 patch DAILY TD Last administered on 02/21/19at 09:22; Start 02/20/19 at 11:00 Vitals/I & O Vital Sign - Last 24 Hours 02/20/19 02/20/19 02/20/19 02/20/19 11:34 12:08 14:57 15:18 Temp 98.5 98.6 98.5 98.6 Pulse 74 74 68 Resp 18 20 B/P (MAP) 186/90 (122) 186/90 168/78 (108) Pulse Ox 96 100 98 O2 Delivery Nasal Cannula Nasal Cannula Nasal Cannula O2 Flow Rate 2.0 2.0 2.0 02/20/19 02/20/19 02/20/19 02/20/19 16:29 19:15 19:56 20:14 Temp 97.5 97.5 Pulse 72 Resp 17 B/P (MAP) 150/73 (98) Pulse Ox 95 96 100 O2 Delivery Nasal Cannula Nasal Cannula Nasal Cannula Nasal Cannula O2 Flow Rate 2.0 2.0 2.0 2.0 02/20/19 02/20/19 02/21/19 02/21/19 21:19 23:15 03:15 07:00 Temp 97.6 97.5 98.2 97.6 97.5 98.2 Pulse 72 74 64 63 Resp 17 17 16 B/P (MAP) 150/73 176/89 (118) 183/90 (121) 206/102 (136) Pulse Ox 100 97 97 O2 Delivery Nasal Cannula Room Air Room Air O2 Flow Rate 2.0 02/21/19 02/21/19 02/21/19 02/21/19 08:22 08:29 09:21 09:21 Pulse 86 86 86 B/P (MAP) 206/102 206/102 206/102 Pulse Ox 99 O2 Delivery Room Air 02/21/19 09:26 Pulse 86 B/P (MAP) 206/102 Intake and Output 02/20/19 02/20/19 02/21/19 15:00 23:00 07:00 Intake Total 540 ml 600 ml Output Total 700 ml Balance 540 ml -100 ml SLADE LOERA MD Feb 21, 2019 10:14
[2019-02-21] MEDS ORDERED: predniSONE 10 MG TABLET PO ONE (10:30)
[2019-02-21] MEDS: guaiFENesin DM 600/30MG 1 TAB TAB.ER.12H PO SCH ×2 (10:36→21:15)
[2019-02-21] MEDS: amLODIPine BESYLATE 5 MG TABLET PO SCH (10:37)
[2019-02-21 11:00] VITALS: BP 170/80
[2019-02-21] MEDS: ENOXAPARIN 40 MG/0.4 ML SYRINGE. SQ SCH (12:39)
[2019-02-21 15:00] VITALS: BP 134/72
[2019-02-21] MEDS: AZITHROMYCIN 500 MG in IV NORMAL SALINE 250ML 250 ML IV SCH (17:12)
[2019-02-21] MEDS: cefTRIAXone IV Push 1 GM VIAL. IVP SCH (17:13)
[2019-02-21 20:00] VITALS: BP 145/80
[2019-02-21] MEDS: ATORVASTATIN CALCIUM 20 MG TABLET PO SCH (21:16)
[2019-02-21] MEDS: INSULIN GLARGINE SYRINGE. SQ SCH (21:21)
[2019-02-21 23:25] VITALS: BP 180/93
[2019-02-22] MEDS: hydrALAZINE 20 MG/ML VIAL. IVP PRN (02:58)
[2019-02-22 03:49] VITALS: BP 183/86
[2019-02-22] MEDS: IPRATRPIUM/ALBUTEROL 0.5/2.5MG 3 ML NEBU. NEB SCH ×3 (05:55→15:28)
[2019-02-22] MEDS: INSULIN LISPRO 300 UNITS/3 ML VIAL. SQ SCH ×2 (07:30→08:00)
[2019-02-22 07:48] VITALS: BP 156/62
[2019-02-22] MEDS ORDERED: predniSONE 10 MG TABLET PO SCH (09:00)
[2019-02-22] MEDS: NICOTINE 7MG PATCH. TD SCH (09:16)
[2019-02-22] MEDS: hydrALAZINE 25 MG TABLET PO SCH ×2 (09:17→14:18)
[2019-02-22] MEDS: FUROSEMIDE 40 MG TABLET. PO SCH (09:17)
[2019-02-22] MEDS: LACTOBACILLUS RHAMNOSUS GG 1 CAPSULE. PO SCH (09:17)
[2019-02-22] MEDS: LOSARTAN POTASSIUM 50 MG TABLET. PO SCH (09:18)
[2019-02-22] MEDS: ISOSORBIDE MONONITRATE ER 30 MG TAB.ER.24H PO SCH (09:18)
[2019-02-22] MEDS: amLODIPine BESYLATE 5 MG TABLET PO SCH (09:19)
--- NOTE | 2019-02-22 09:33 | PDOC ---
PROGRESS NOTES Subjective Subjective feels better. Objective Objective Vital Signs Date Time Temp Pulse Resp B/P (MAP) Pulse Ox O2 Delivery O2 Flow Rate FiO2 02/22/19 09:19 75 156/62 02/22/19 07:48 98.0 20 95 Nasal Cannula 2.0 98.0 Intake and Output 02/22/19 07:00 Intake Total 1500 ml Output Total 350 ml Balance 1150 ml Intake Oral 1500 ml Output Urine Total 350 ml # Voids 2 # Bowel Movements 1 Physical Exam Abdomen: Normal bowel sounds, Soft Heart: Regular rate, Normal S1, Normal S2 Extremities: No clubbing General: Alert HEENT: Atraumatic, Other (dec wheezing) Lungs: Clear to auscultation MUSCULOSKELETAL: Osteoarthritic changes both hands Neck: Supple Neuro: Normal speech Psych/Mental Status: Mental status NL Skin: No breakdown Diagnosis Problem List Problems Medical Problems: (1) Pneumonia Status: Acute Assessment Assessment Problems Medical Problems: (1) Pneumonia Status: Acute FINAL IMPRESSION: 1. Pneumonia bilateral suspect gram neg and gram positive. 2. Chronic obstructive pulmonary disease.Acute exacerbration 3. History of lung surgery, lobectomy rt . 4. Smoker, active. 5. Hypertension. 6. Possible coronary artery disease.PVD . 7. 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 Labs Laboratory Tests Test 02/21/19 10:51 02/21/19 16:33 02/21/19 20:35 02/22/19 07:19 Glucose (Fingerstick) 214 mg/dL (70-99) 171 mg/dL (70-99) 267 mg/dL (70-99) 85 mg/dL (70-99) Microbiology 02/18/19 - Final, Resulted 02/18/19 - Final, Resulted 02/18/19 - Final, Resulted 02/18/19 - Preliminary, Resulted 02/18/19 - Preliminary, Resulted 02/18/19 - Preliminary, Resulted 02/18/19 Gram Stain Evaluation - Final, Resulted 02/18/19 Sputum Culture - Preliminary, Resulted 02/18/19 Sputum Result 1 - Final, Resulted 02/18/19 Blood Culture - Preliminary, Resulted NO GROWTH AFTER 3 DAYS Medications Current Medications Prednisone (Prednisone) 50 mg 1X ONCE PO Last administered on 02/21/19at 1 0:40; Start 02/21/19 at 10:30; Stop 02/21/19 at 10:31; Status DC Prednisone (Prednisone) 50 mg DAILY PO Last administered on 02/22/19at 09:17; Start 02/22/19 at 09:00 Vitals/I & O Vital Sign - Last 24 Hours 02/21/19 02/21/19 02/21/19 02/21/19 10:37 11:00 11:49 15:00 Temp 97.8 98.5 97.8 98.5 Pulse 85 71 80 Resp 28 24 B/P (MAP) 171/87 170/80 (110) 134/72 (92) Pulse Ox 97 100 98 O2 Delivery Room Air Room Air Room Air 02/21/19 02/21/19 02/21/19 02/21/19 16:00 17:12 19:40 20:00 Temp 97.5 97.5 Pulse 80 83 Resp 20 B/P (MAP) 134/72 145/80 (101) Pulse Ox 100 96 O2 Delivery Room Air Nasal Cannula Nasal Cannula O2 Flow Rate 2.0 2.0 02/21/19 02/21/19 02/21/19 02/22/19 20:09 21:16 23:25 02:58 Temp 97.7 97.7 Pulse 83 62 75 Resp 20 B/P (MAP) 145/80 180/93 (122) 183/86 Pulse Ox 84 97 O2 Delivery Room Air Nasal Cannula O2 Flow Rate 2.0 02/22/19 02/22/19 02/22/19 02/22/19 03:49 05:57 07:48 09:17 Temp 97.6 98.0 97.6 98.0 Pulse 68 75 75 Resp 20 20 B/P (MAP) 183/86 (118) 156/62 (93) 156/62 Pulse Ox 97 99 95 O2 Delivery Nasal Cannula Room Air Nasal Cannula O2 Flow Rate 2.0 2.0 02/22/19 02/22/19 02/22/19 09:18 09:18 09:19 Pulse 75 75 75 B/P (MAP) 156/62 156/62 156/62 Intake and Output 02/21/19 02/21/19 02/22/19 15:00 23:00 07:00 Intake Total 540 ml 360 ml 600 ml Output Total 350 ml Balance 540 ml 360 ml 250 ml SLADE LOERA MD Feb 22, 2019 09:33
[2019-02-22] MEDS ORDERED: AMLO5TAB10 PO (09:38)
[2019-02-22] MEDS ORDERED: PRED-220 PO (09:38)
[2019-02-22] MEDS ORDERED: DOXY100C2 PO (09:38)
--- NOTE | 2019-02-22 10:53 | PDOC ---
PULMONARY PROGRESS NOTES Subjective FEELS BETTER READY FOR D/C Vitals Vital Signs Date Time Temp Pulse Resp B/P (MAP) Pulse Ox O2 Delivery O2 Flow Rate FiO2 02/22/19 09:19 75 156/62 02/22/19 08:00 Nasal Cannula 2.0 02/22/19 07:48 98.0 20 95 98.0 ROS: No Nausea, No Chest Pain, No Abdominal Pain, No Increase Cough General: Alert Lungs: Clear Cardiovascular: S1, S2 Abdomen: Soft, Non-tender, Other Neuro Exam: Alert Extremities: No Edema, Other Skin: Warm Labs Laboratory Tests Test 02/20/19 11:02 02/20/19 17:33 02/20/19 18:11 02/20/19 21:07 Glucose (Fingerstick) 294 mg/dL (70-99) 65 mg/dL (70-99) 139 mg/dL (70-99) 275 mg/dL (70-99) Test 02/21/19 08:17 02/21/19 10:51 02/21/19 16:33 02/21/19 20:35 Glucose (Fingerstick) 121 mg/dL (70-99) 214 mg/dL (70-99) 171 mg/dL (70-99) 267 mg/dL (70-99) Test 02/22/19 07:19 Glucose (Fingerstick) 85 mg/dL (70-99) Laboratory Tests Test 02/21/19 16:33 02/21/19 20:35 02/22/19 07:19 Glucose (Fingerstick) 171 mg/dL (70-99) 267 mg/dL (70-99) 85 mg/dL (70-99) Medications Active Scripts Medications Dose Route/Sig Max Daily Dose Days Date Category Atorvastatin Calcium 20 Mg Tablet 1 Tab PO HS 02/18/19 Reported Losartan Potassium 50 Mg Tablet 25 Mg PO DAILY 02/18/19 Reported Proair Hfa Inhaler (Albuterol Sulfate) 8.5 Gm Hfa.aer.ad 1 Puff INH PRN Q6HRS PRN 08/01/18 Rx Albuterol Sulfate Neb Soln (Albuterol Sulfate) 2.5 Mg/3 Ml Vial.neb 1 Vial NEB PRN Q4HRS PRN 08/01/18 Rx Lasix (Furosemide) 40 Mg Tablet 1 Tab PO DAILY 10/07/16 Rx Isosorbide Mononitrate Er (Isosorbide Mononitrate) 120 Mg Tab.er.24h 120 Mg PO DAILY 06/21/16 Reported Impression . IMPRESSION: 1. Abnormal CT chest revealing bilateral pulmonary infiltrates compatible with gram-negative pneumonia, possible gram-positive. If no improvement, consider atypical infection such as nontuberculous Mycobacterium. 2. Acute exacerbation of chronic obstructive pulmonary disease. 3. Acute hypoxemic respiratory failure. 4. Tobacco dependent. 5. Multiple comorbidities, diabetes, hypertension, previous thoracotomy. 6. UNCONTROLLED HTN Plan . D/C HOME FOLLOW UP IN MY OFFICE [facility] ANTI BX REPEAT CT IN 2-3 MONTHS DOUGIE RIVAS MD Feb 22, 2019 10:53
--- NOTE | 2019-02-22 11:27 | CONS ---
DATE OF CONSULTATION: PODIATRIC CONSULTATION REASON FOR CONSULTATION: Diabetic patient with painful mycotic nails with a history of amputations and peripheral vascular disease. REVIEW OF RECORD: This is a 78-year-old gentleman with a history of chronic COPD, active smoker. He had positive findings on x-ray. White count was normal. He has a history of asthma, diabetes, hypertension, hyperlipidemia, prostatitis, emphysema. PAST SURGICAL HISTORY: Some vascular surgery with amputation of toes on right foot. ALLERGIES: LISINOPRIL. SOCIAL HISTORY: Smokes 1 pack a day for 30 years, now down to half a pack. PHYSICAL EXAMINATION: DERMAL: The patient has an elongated mycotic nails of all toes on the left foot and two on the right foot. Hyperkeratotic lesions, sub-fifth metatarsal head bilateral. Upon debridement, no signs of pre-ulcerative lesions are noted along with some other plantar calluses i.e., pinch calluses. Decreased turgor, absence of hair growth. Skin is very dry. VASCULAR: Pedal pulses are diminished. Hard to palpate left foot. The best pulse is the dorsalis pedis on the right foot, which is rated at 2/4, but others are at best 1/4. NEUROLOGIC: The patient does relate some degree of neuropathy, decreased sensorium. MUSCULOSKELETAL: Amputations of the toes on the right foot x 3. ASSESSMENT: 1. Diabetic with amputation, peripheral vascular disease and neuropathy. 2. Evidence of onychomycosis, onychocryptosis, onycholysis. 3. Multiple hyperkeratotic lesions nonulcerative at this time, always at risk. PLAN: Debridement of mycotic nails and lesions are performed. No hemorrhaging occurred. 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 Rutherford, Dr. Kamara advised him that he needs to continue on a maintenance basis every 3 months for diabetic foot care to prevent further complications as a result. The patient was given my card for consideration for followup, probably around May of next year or sooner as needed. Thank you for the consultation, Dr. Gandhi and Dr. Cobb. RIN KELLOGG DPM DR: EMMA/taylor JOB#: [id number] / [id number]
[2019-02-22 11:54] VITALS: BP 152/78
[2019-02-22 14:18] VITALS: BP 152/78
[2019-02-22] MEDS: ENOXAPARIN 40 MG/0.4 ML SYRINGE. SQ SCH (14:18)
[2019-02-22] MEDS: guaiFENesin DM 600/30MG 1 TAB TAB.ER.12H PO SCH (14:18)
[2019-02-22] MEDS: cefTRIAXone IV Push 1 GM VIAL. IVP SCH (14:19)
--- NOTE | 2019-02-22 16:47 | NUR ---
Pt discharged home. Discharge teaching, followup appointments, and prescriptions given to Pt. Pt taken down by wheelchair with transportation provide by family.
--- NOTE | 2019-02-26 22:20 | PDOC ---
Provider Note Provider Note Discharge summary dictated.#[id number] SLADE LOERA MD Feb 26, 2019 22:20
--- NOTE | 2019-02-27 02:19 | DS ---
DATE OF DISCHARGE: 02/22/2019 REASON FOR ADMISSION TO THE HOSPITAL: Bilateral pneumonia, community acquired. CONSULTATIONS: Dr. Quigley and Dr. Zuniga. PROCEDURES DONE: CT chest. HOSPITAL COURSE: The patient is a 78-year-old male with history of chronic COPD, home oxygen, continues to smoke. He came with cough, congestion and was found to have community-acquired pneumonia, bilateral lung infiltrates. The patient had a CT chest, which shows distal airway inflammatory disease, bronchitis and bronchiectasis. The patient had a sputum culture, shows mixed renetta. Blood cultures negative. Seen by Pulmonology. The patient was treated with broad-spectrum antibiotic, vancomycin and Zosyn initially and ____ of the cultures negative, was started on doxycycline. He was also given IV Solu-Medrol for bronchospasm and breathing treatments. Counseling was done about smoking and the patient has oxygen at home and is up-to-date on flu and pneumonia shots. FINAL DIAGNOSES: 1. Bilateral pneumonia. 2. Bronchitis with bronchiectasis. 3. Chronic obstructive pulmonary disease. 4. Tobacco addiction. 5. Peripheral vascular disease, stable. DISPOSITION: Home. Follow up with PCP in a couple of weeks and the patient was discharged on doxycycline and prednisone for 5 days. SLADE LOERA MD DR: [place]/taylor JOB#: [id number] / [id number] LILIBETH Knott
== END 2019-02-22 17:00 | disposition home or self-care (01) | DRG 177 ==
LOC: ER 11:09 → 6 SOUTH 15:06
PROVIDERS: ADMIT Internal Medicine; ATTEND Internal Medicine
PROC: 02HV33Z Insertion of Infusion Device into Superior Vena Cava, Percutaneous Approach (ICD-10-PCS; principal; 2019-02-19)
DX: J15.6 Pneumonia due to other Gram-negative bacteria (principal); J96.01 Acute respiratory failure with hypoxia; I25.10 Atherosclerotic heart disease of native coronary artery without angina pectoris; J43.9 Emphysema, unspecified; E78.00 Pure hypercholesterolemia, unspecified; I10 Essential (primary) hypertension; E78.5 Hyperlipidemia, unspecified; F17.210 Nicotine dependence, cigarettes, uncomplicated; E11.51 Type 2 diabetes mellitus with diabetic peripheral angiopathy without gangrene; B35.1 Tinea unguium; L60.0 Ingrowing nail; J15.9 Unspecified bacterial pneumonia; L60.1 Onycholysis; E11.40 Type 2 diabetes mellitus with diabetic neuropathy, unspecified; T38.0X5A Adverse effect of glucocorticoids and synthetic analogues, initial encounter; Y92.89 Other specified places as the place of occurrence of the external cause; Z88.8 Allergy status to other drugs, medicaments and biological substances; I25.2 Old myocardial infarction; Z89.421 Acquired absence of other right toe(s); Z90.89 Acquired absence of other organs
CPT/HCPCS: 36415; 36569; 71045; 71250; 80048; 80053; 80061; 82962; 83036; 83605; 84443; 84484; 85025; 87040; 87070; 87205; 87804; 93005; 94640; 94644; 94760; 96372; 99285; 99406; J0360; J0456; J0696; J1650; J1815; J2920; J7030; J7050; J7512; J7613; J7620; Q0144; Q0162; 97116; G0378

== ENCOUNTER → 2020-09-09 | Outpatient (CLI) | payer MEDICARE ==
[2019-04-24 13:05] VITALS: BP 105/58
[~2020-09-09] MED LIST changes: +ALBU1.25 NEB; +AMLO-186 PO; +AMLO-187 PO; -AMLO10TA8 PO; +ASPI-886 PO; +CEFD300C PO; +FERR325T20 PO; -ISOS60TA2 PO; +ISOS60TA55 PO; +LOSA-73 PO; +METF-658 PO; +POTA20TA4 PO; +PRED-220 PO; +SERT-267 PO; +TAMS0.4C97 PO
--- NOTE | 2020-09-09 13:05 | RAD ---
EXAM: Chest, 2 views. HISTORY: Bronchitis. COMPARISON: 04/20/2019 FINDINGS: 2 views of the chest are obtained. There has been interval increase in a small right pleura l effusion and suspected basilar atelectasis or infiltrate. There is stable suspected linear right up per lobe scarring and biapical scarring. There is a stable prominent cardiac silhouette. IMPRESSION: 1. Slight increase in a small right pleural effusion and suspected right basilar atelectasis or infil trate. 2. Stable linear right upper lobe and biapical scarring. Electronically signed by: Parvin Ramos MD (09/09/2020 1:03 PM) [id number]
== END ==
LOC: RAD 11:46
PROVIDERS: ATTEND Internal Medicine
DX: J20.9 Acute bronchitis, unspecified (principal); J90 Pleural effusion, not elsewhere classified
CPT/HCPCS: 71046

== ENCOUNTER 2021-06-23 10:43 | Emergency (ER) | payer MEDICARE ==
[~2021-06-23] VITALS: Ht 188 cm; Wt 90.9 kg
[~2021-06-23 10:43] MED LIST changes: -DOXY100C2 PO; +DOXY100C3 PO; +FERR-36 PO; +INSU100V8 SQ; -LISI1TAB23 PO; +LISI1TAB35 PO; +POTA-121 PO; -POTA20TA4 PO
[2021-06-23 12:32] LABS: INFLUENZA A PATIENT NEGATIVE (NEGATIVE); INFLUENZA B PATIENT NEGATIVE (NEGATIVE)
--- NOTE | 2021-06-23 12:37 | RAD ---
XR CHEST 1V History: Severe abdominal pain. Comparison: 09/09/2020. CT 09/30/2020. Technique: Portable AP radiograph of the chest. Findings: Persistent right lower lobe reticular opacities and costophrenic angle blunting similar to comparison s. Increased left lower lobe airspace opacity. Enlarged cardiac silhouette with ectatic, calcified ao rta. Degenerative changes of the shoulders and spine. Impression: 1. Chronic-appearing changes to the right lower lobe. 2. Increasing left lower lobe airspace opacity may represent infiltrate. Electronically signed by: Vickey Granados MD (06/23/2021 12:35 PM) [id number]
[2021-06-23 12:42] LABS: BASO # 0.1 x10^3/uL (0.0-0.2); BASO % 1 % (0-3); EOS # 0.2 x10^3/uL (0.0-0.7); EOS % 2 % (0-3); HEMATOCRIT 31.5 % (39.0-53.0); HEMOGLOBIN 10.1 g/dL (13.0-17.5); LYMPH # 1.3 x10^3/uL (1.0-4.8); LYMPH % 19 % (24-48); MEAN CORPUSCULAR HEMOGLOBIN 28 pg (25-35); MEAN CORPUSCULAR HGB CONC 32 g/dL (31-37); MEAN CORPUSCULAR VOLUME 86 fL (79-100); MONO # 0.5 x10^3/uL (0.0-1.1); MONO % 7 % (0-9); NEUT % 70 % (31-73); PLATELET COUNT 297 x10^3/uL (140-400); RED BLOOD COUNT 3.68 x10^6/uL (4.30-5.70); RED CELL DISTRIBUTION WIDTH 14.8 % (11.5-14.5); WHITE BLOOD COUNT 7.1 x10^3/uL (4.0-11.0)
[2021-06-23 12:56] LABS: CALCIUM 8.3 mg/dL (8.5-10.1); CREATININE 1.3 mg/dL (0.7-1.3); GFR 64.6; POTASSIUM 4.6 mmol/L (3.5-5.1)
[2021-06-23] MEDS ORDERED: IOHEXOL 300 MG/ML 100ML VIAL. IV ONE (13:00)
[2021-06-23 13:02] LABS: ALBUMIN 3.5 g/dL (3.4-5.0); ALBUMIN/GLOBULIN RATIO 0.9 (1.0-1.7); PHOSPHORUS 4.2 mg/dL (2.6-4.7); TOTAL BILIRUBIN 0.2 mg/dL (0.2-1.0); TOTAL PROTEIN 7.2 g/dL (6.4-8.2)
[2021-06-23] MEDS ORDERED: CONTRAST GIVEN. MC PRN (13:15)
[2021-06-23 13:53] LABS: BILIRUBIN,URINE NEGATIVE (NEG); CLARITY,URINE CLEAR; COLOR,URINE YELLOW
[2021-06-23 13:54] LABS: NITRITE,URINE NEGATIVE (NEG); PH,URINE 6.5 (<5.0-8.0); PROTEIN,URINE NEGATIVE (NEG-TRACE); UROBILINOGEN,URINE 0.2 mg/dL (0.2 mg/dL)
[2021-06-23 13:58] LABS: BACTERIA,URINE 0 /HPF (0-FEW); WBC,URINE 0 /HPF (0-4)
--- NOTE | 2021-06-23 14:06 | PHYS DOC ---
Past Medical History Past Medical History: Asthma, CAD, CHF, COPD, Diabetes-Type II, DVT, High Cholesterol, Hypertension, [place], Prostatitis, Other Additional Past Medical Histor: EMPHYSEMA Past Surgical History: Other Additional Past Surgical Histo: Left lower lobectomy; right leg,R TOES AMPUTATED Smoking Status: Never Smoker Alcohol Use: None Drug Use: None General Adult EDM: Chief Complaint: ABDOMINAL PAIN HPI: HPI: Patient is a 80-year-old male who presents to the emergency department complaining of right sided flank pain and right upper abdominal pain since this past Tuesday. Patient reports a 4 out of 10 pain constant. Patient denies taking pain medications to treat his pain or trying nonpharmacological pain relief methods at home. Patient denies chest pain, chest palpitations, denies shortness of breath chest congestion or nasal congestion. Patient denies syncopal episodes, dizziness, near syncope, diaphoretic episodes. Patient anne-marie es other physical complaints or physical concerns. Patient reports he is a cigarette smoker, drinks alcohol occasionally, denies illicit drug use. Review of Systems: Review of Systems: 14 body systems of review of systems have been reviewed. See HPI for pertinent positives and negative responses, otherwise all other systems are negative, nonpertinent or noncontributory. Constitutional: Negative except as outlined in HPI above. Skin: Negative except as outlined in HPI above. Eyes: Negative except as outlined in HPI above. HENT: Negative except as outlined in HPI above. Respiratory: Negative except as outlined in HPI above. Cardiovascular: Negative except as outlined in HPI above. GI: Negative except as outlined in HPI above. : Negative except as outlined in HPI above. Musculoskeletal: Negative except as outlined in HPI above. Integument: Negative except as outlined in HPI above. Neurologic: Negative except as outlined in HPI above. Endocrine: Negative except as outlined in HPI above. Lymphatic: Negative except as outlined in HPI above. Psychiatric: Negative except as outlined in HPI above. Heart Score: C/O Chest Pain: No Risk Factors: Risk Factors: DM, Current or recent (<one month) smoker, HTN, HLP, family history of CAD, obesity. Risk Scores: Score 0 - 3: 2.5% MACE over next 6 weeks - Discharge Home Score 4 - 6: 20.3% MACE over next 6 weeks - Admit for Clinical Observation Score 7 - 10: 72.7% MACE over next 6 weeks - Early Invasive Strategies Current Medications: Current Medications Medications (Trade) Dose Ordered Sig/Ann Marie Start Time Stop Time Status Last Admin Dose Admin Info (CONTRAST GIVEN -- Rx MONITORING) 1 each PRN DAILY PRN 06/23/21 13:15 06/25/21 13:14 Iohexol (Omnipaque 300 Mg/ml) 75 ml 1X ONCE 06/23/21 13:00 06/23/21 13:01 DC 06/23/21 13:04 75 ML Allergies: Allergies: Allergies Coded Allergies Type Severity Reaction Last Updated Verified lisinopril Allergy Severe Anaphylaxis 06/23/21 Yes Physical Exam: PE: Constitutional: Well developed, well nourished, no acute distress, non-toxic appearance. 80-year-old male in no apparent distress. HENT: Normocephalic, atraumatic. Eyes: Conjunctiva normal, no discharge. Neck: Normal range of motion, no stridor. Cardiovascular: No cyanosis appreciated, distal cap refill less than 2 seconds. Regular rate and rhythm, heart sounds S1-S2 auscultation. Lungs & Thorax: Patient is in no respiratory distress, no audible adventitious lung sounds appreciated. Lungs are clear to auscultation all lung gamez. Abdomen: Nontender, no abnormalities noted. Skin: Warm, dry, no erythema, no rash. Back: No tenderness, no deformities. Extremities: No tenderness, no cyanosis, no clubbing, ROM intact, no edema. Neurologic: Alert and oriented X 3, normal motor function, normal sensory function, no focal deficits noted. Psychologic: Affect normal, judgement normal, mood normal. Current Patient Data: Labs: Laboratory Tests Test 06/23/21 11:51 06/23/21 12:30 06/23/21 13:18 Influenza Type A Antigen Negative (NEGATIVE) Influenza Type B Antigen Negative (NEGATIVE) SARS-CoV-2 Antigen (Rapid) Negative (NEGATIVE) White Blood Count 7.1 x10^3/uL (4.0-11.0) Red Blood Count 3.68 x10^6/uL (4.30-5.70) L Hemoglobin 10.1 g/dL (13.0-17.5) L Hematocrit 31.5 % (39.0-53.0) L Mean Corpuscular Volume 86 fL (79-100) Mean Corpuscular Hemoglobin 28 pg (25-35) Mean Corpuscular Hemoglobin Concent 32 g/dL (31-37) Red Cell Distribution Width 14.8 % (11.5-14.5) H Platelet Count 297 x10^3/uL (140-400) Neutrophils (%) (Auto) 70 % (31-73) Lymphocytes (%) (Auto) 19 % (24-48) L Monocytes (%) (Auto) 7 % (0-9) Eosinophils (%) (Auto) 2 % (0-3) Basophils (%) (Auto) 1 % (0-3) Neutrophils # (Auto) 5.0 x10^3/uL (1.8-7.7) Lymphocytes # (Auto) 1.3 x10^3/uL (1.0-4.8) Monocytes # (Auto) 0.5 x10^3/uL (0.0-1.1) Eosinophils # (Auto) 0.2 x10^3/uL (0.0-0.7) Basophils # (Auto) 0.1 x10^3/uL (0.0-0.2) Sodium Level 144 mmol/L (136-145) Potassium Level 4.6 mmol/L (3.5-5.1) Chloride Level 105 mmol/L (98-107) Carbon Dioxide Level 30 mmol/L (21-32) Anion Gap 9 (6-14) Blood Urea Nitrogen 25 mg/dL (8-26) Creatinine 1.3 mg/dL (0.7-1.3) Estimated GFR (Cockcroft-Gault) 64.6 BUN/Creatinine Ratio 19 (6-20) Glucose Level 118 mg/dL (70-99) H Calcium Level 8.3 mg/dL (8.5-10.1) L Phosphorus Level 4.2 mg/dL (2.6-4.7) Magnesium Level 2.0 mg/dL (1.8-2.4) Total Bilirubin 0.2 mg/dL (0.2-1.0) Aspartate Amino Transferase (AST) 11 U/L (15-37) L Alanine Aminotransferase (ALT) 12 U/L (16-63) L Alkaline Phosphatase 73 U/L (46-116) Troponin I High Sensitivity 11 ng/L (4-75) Total Protein 7.2 g/dL (6.4-8.2) Albumin 3.5 g/dL (3.4-5.0) Albumin/Globulin Ratio 0.9 (1.0-1.7) L Lipase 39 U/L (73-393) L Urine Collection Type Unknown Urine Color Yellow Urine Clarity Clear Urine pH 6.5 (<5.0-8.0) Urine Specific [place] 1.015 (1.000-1.030) Urine Protein Negative mg/dL (NEG-TRACE) Urine Glucose (UA) Negative mg/dL (NEG) Urine Ketones (Stick) Negative mg/dL (NEG) Urine Blood Negative (NEG) Urine Nitrite Negative (NEG) Urine Bilirubin Negative (NEG) Urine Urobilinogen Dipstick 0.2 mg/dL (0.2 mg/dL) Urine Leukocyte Esterase Negative (NEG) Urine RBC 3-5 /HPF (0-2) Urine WBC 0 /HPF (0-4) Urine Squamous Epithelial Cells Few /LPF Urine Bacteria 0 /HPF (0-FEW) Laboratory Tests 06/23/21 12:30 Laboratory Tests 06/23/21 12:30 Vital Signs: Vital Signs Date Time Temp Pulse Resp B/P (MAP) Pulse Ox O2 Delivery O2 Flow Rate FiO2 06/23/21 10:54 97.5 84 21 148/70 (96) 99 Room Air 97.5 EKG: EKG: EKG performed at 1206 by ED nursing staff shows a normal sinus rhythm without other ectopy, heart rate 68 bpm. VA interval 0.264, QTc interval 445, no acute STEMI, no ACS, no acute ischemia appreciated, EKG interpreted by ED attending physician Dr. Vargas. Radiology/Procedures: Radiology/Procedures: REASON: Severe abdominal pain PROCEDURE: CHEST AP ONLY XR CHEST 1V History: Severe abdominal pain. Comparison: 09/09/2020. CT 09/30/2020. Technique: Portable AP radiograph of the chest. Findings: Persistent right lower lobe reticular opacities and costophrenic angle blunting similar to comparisons. Increased left lower lobe airspace opacity. Enlarged cardiac silhouette with ectatic, calcified aorta. Degenerative changes of the shoulders and spine. Impression: 1. Chronic-appearing changes to the right lower lobe. 2. Increasing left lower lobe airspace opacity may represent infiltrate. Electronically signed by: Vickey Granados MD (06/23/2021 12:35 PM) [id number] REASON: Severe lower abdominal discomfort, right flank pain PROCEDURE: CT ABD PELV W/ IV CONTRST ONLY PQRS Compliance Statement: One or more of the following individualized dose reduction techniques were utilized for this examination: 1. Automated exposure control 2. Adjustment of the mA and/or kV according to patient size 3. Use of iterative reconstruction technique CT ABDOMEN+PELVIS W Clinical Indication: Reason: Severe lower abdominal discomfort, right flank pain Comparison: CT abdomen and pelvis with contrast, September 29, 2020. Technique: Helical CT imaging of the abdomen and pelvis is performed after 75 cc of Omnipaque 300 IV contrast. Oral contrast not administered. Findings: Coronary artery disease. Calcific aortic valve stenosis. Cardiac size normal. There is peribronchial thickening in the right lung base. Peripheral opacities in the right lung base may be due to scarring. Left lower lobe calcified granuloma. There is mild lower lobe centrilobular emphysema. Lung base findings are unchanged from prior study. There is an infrarenal IVC filter. A retrievable IVC filter is noted, and the referring physician is encouraged to ensure that a management plan for this filter is in place. If no such plan is present, referral to an interventional clinician on a non-emergent basis should be considered. The [employer] appropriateness criteria for placement and management of IVC filters can be found on the web at: www.acr.org/quality-safety/appropriateness-criteria/interventional. Atherosclerotic abdominal aorta, no aneurysm. There is ectasia of the common iliac arteries. The liver, gallbladder, spleen, pancreas, and adrenal glands are normal. Kidneys enhance symmetrically, no hydronephrosis. Bifid right collecting system. The stomach is mostly decompressed accentuating the wall thickness. There is no dilated small bowel. There is moderate distal colon diverticulosis. The appendix is normal. No colon wall thickening is identified. No abdominal adenopathy or free fluid. The urinary bladder is normal. No pelvic free fluid. No acute bone abnormality. IMPRESSION: 1. No acute abdominal or pelvic abnormality. 2. There is bronchitis in the right lung base, similar to prior study. 3. Moderate distal colon diverticulosis. Electronically signed by: Myles Jacobo MD (06/23/2021 2:13 PM) [facility] Course & Med Decision Making: Course & Med Decision Making Pertinent Labs and Imaging studies reviewed. (See chart for details) 80-year-old male, vital signs reviewed, events were department complaining of right upper flank and right upper abdominal discomfort. Physical examination discerning for acute abdominal process versus underlying pulmonary cardiac process, will order chest x-ray, EKG, high-sensitivity troponin I, CBC, CMP, mag, Phos, urinalysis assay, rapid flu and COVID testing. CT abdomen pelvis with IV contrast. Labs are unremarkable, patient's CT of chest x-ray consistent with right lower lobe pneumonia, discussed patient case and ED work-up with ED attending physician Dr. Vargas who agrees patient should be treated for community- acquired pneumonia, will start on azithromycin regimen. Discussed with patient CT findings and lab findings, patient is complaint free at this time and denying pain or discomfort, discussed with patient medications, side effects, strict follow-up with Dr. Loera this week, return to ER precautions and concerns were discussed, patient gave verbal understanding of and is amenable to ED discharge planning. Discussed with the patient all findings and diagnostic testing as well as the need to follow-up with their primary care provider for further evaluation and treatment or return to the ED if any new or worsening symptoms. Strict return precautions were also discussed at length, the patient voiced understanding and agreement with the discharge planning. The patient was nontoxic in appearance, in no apparent distress, and hemodynamically stable at the time of disposition. Dragon Disclaimer: Dragisrael Disclaimer: This electronic medical record was generated, in whole or in part, using a voice recognition dictation system. Departure Departure Impression: Primary Impression: Community acquired pneumonia Qualified Codes: J18.9 - Pneumonia, unspecified organism Disposition: HOME / SELF CARE / HOMELESS Condition: GOOD Referrals: UNKNOWN PCP NAME (PCP) SLADE LOERA MD Patient Instructions: Pneumonia, Adult Additional Instructions: You were seen today in the emergency department for body aches. Your chest x- ray is concerning for pneumonia of the right lower lobe. The CT scan of your abdomen and pelvis was also concerning for pneumonia of the right lower lobe. Otherwise there were no concerning findings of the abdomen. Your lab work is unremarkable, your urine does not show signs of infection, the rapid COVID-19 and rapid flu tests were negative. As we discussed I am starting you on an antibiotic that you will take as directed until complete. I have started a dose here in the emergency department, please coal picker the medication from the pharmacy and start taking tomorrow. Please call your primary care physician Dr. Loera tomorrow for an appointment to be reexamined soon. Thank you for visiting our Emergency Department. It was a pleasure taking care of you today in the emergency department and we appreciate you trusting us with your care. If any additional problems come up don't hesitate to return to visit us. Please follow up with your primary care provider so they can plan additional care if needed and know about the problem that you had. If symptoms worsen come back to the Emergency Department. Any concerning symptoms that start such as chest pain, shortness of air, weakness or numbness on one side of the body, running high fevers or any other concerning symptoms return to the ER. EMERGENCY DEPARTMENT GENERAL DISCHARGE INSTRUCTIONS Thank you for coming to [facility] Emergency Department (ED) today and trusting us with you care. We trust that you had a positive experience in our Emergency Department. If you wish to speak to the department management, you may call the Director at [phone]. YOUR FOLLOW UP INSTRUCTIONS ARE FOLLOWS: 1. Do you have a private Doctor? If you do not have a private doctor, please ask for a resource list of physicians or clinics that may be able to assist you with follow up care. 2. The Emergency Physicain has interpreted your x-rays. The X-Ray specialist will also review them. If there is a change in the findings, you will be notified in 48 hours when at all possible. 3. A lab test or culture has been done, your results will be reviewed and you will be notified if you need a change in treatment. ADDITIONAL INSTRUCTIONS AND INFORMATION: 1. Your care today has been supervised by a physician who is specially trained in emergency care. Many problems require more than one evaluation for a complete diagnosis and treatment. We recommend that you schedule your follow up appointment as recomm ended to ensure complete treatment of you illness or injury. If you are unable to obtain follow up care and continue to have a problem, or if your condition worsens, we recommend that you return to the ED. 2. We are not able to safely determine your condition over the phone nor are we able to give sound medical advice over the phone. For these safety reasons, if you call for medical advice we will ask you to come to the ED for further evaluation. 3. If you have any questions regarding these discharge instructions please call the ED at [phone]. SAFETY INFORMATION: In the interest of safety, wellness, and injury prevention; we encourage you to wear your sealbelt, if you smoke; quite smoking, and we encourage family to use a protective helmet for bicycling and other sporting events that present an increased risk for head injury. IF YOUR SYMPTOMS WORSEN OR NEW SYMPTOMS DEVELOP, OR YOU HAVE CONCERNS ABOUT YOUR CONDITION; OR IF YOUR CONDITION WORSENS WHILE YOU ARE WAITING FOR YOUR FOLLOW UP APPOINTMENT; EITHER CONTACT YOUR PRIMARY CARE DOCTOR, THE PHYSICIAN WHOSE NAME AND NUMBER YOU WERE GIVEN, OR RETURN TO THE ED IMMEDIATELY. Scripts Azithromycin (AZITHROMYCIN TABLET) 250 Mg Tablet 1 PKG PO UD for community aquired pneumonia for 5 Days, #6 TAB 0 Refills 2 the first day followed by 1 for days 2-5 Prov: DAJA TEJEDA APRN 06/23/21 DAJA TEJEDA APRN Jun 23, 2021 14:06
--- NOTE | 2021-06-23 14:15 | RAD ---
PQRS Compliance Statement: One or more of the following individualized dose reduction techniques were utilized for this examinat ion: 1. Automated exposure control 2. Adjustment of the mA and/or kV according to patient size 3. Use of iterative reconstruction technique CT ABDOMEN+PELVIS W Clinical Indication: Reason: Severe lower abdominal discomfort, right flank pain Comparison: CT abdomen and pelvis with contrast, September 29, 2020. Technique: Helical CT imaging of the abdomen and pelvis is performed after 75 cc of Omnipaque 300 IV contrast. Oral contrast not administered. Findings: Coronary artery disease. Calcific aortic valve stenosis. Cardiac size normal. There is peribronchial thickening in the right lung base. Peripheral opacities in the right lung base may be due to scarring . Left lower lobe calcified granuloma. There is mild lower lobe centrilobular emphysema. Lung base fi ndings are unchanged from prior study. There is an infrarenal IVC filter. A retrievable IVC filter is noted, and the referring physician is encouraged to ensure that a management plan for this filter is in place. If no such plan is present, referral to an interventional clinician on a non-emergent basis should be considered. The [employer] appropriateness criteria for placement and management of IVC filters can be found on the web at: www.acr.org/quality-safety/appropriateness-criteria/interventional. Atherosclerotic abdominal aorta, no aneurysm. There is ectasia of the common iliac arteries. The live r, gallbladder, spleen, pancreas, and adrenal glands are normal. Kidneys enhance symmetrically, no hy dronephrosis. Bifid right collecting system. The stomach is mostly decompressed accentuating the wall thickness. There is no dilated small bowel. There is moderate distal colon diverticulosis. The appendix is normal. No colon wall thickening is id entified. No abdominal adenopathy or free fluid. The urinary bladder is normal. No pelvic free fluid. No acute bone abnormality. IMPRESSION: 1. No acute abdominal or pelvic abnormality. 2. There is bronchitis in the right lung base, similar to prior study. 3. Moderate distal colon diverticulosis. Electronically signed by: Myles Jacobo MD (06/23/2021 2:13 PM) [facility]
--- NOTE | 2021-06-23 16:09 | EKG ---
[facility] [address] [place] [address] Test Date: 2021-06-23 Test Time: 12:06:15 Pat Name: BRONSON TAI Department: Room: Gender: M Apartment Manager: : 1940 Requested By: DAJA TEJEDA Order Number: [id number] Reading MD: Measurements Intervals [place] Rate: 68 P: 49 AZ: 264 QRS: -5 QRSD: 108 T: 26 QT: 418 QTc: 445 Interpretive Statements SINUS RHYTHM PROLONGED [place] INTERVAL LEFTWARD AXIS QRS(T) CONTOUR ABNORMALITY CONSIDER INFERIOR MYOCARDIAL DAMAGE ABNORMAL ECG RI6.02 No previous ECG available for comparison
[2021-06-23 16:50] VITALS: BP 169/80
[2021-06-23] MEDS ORDERED: AZIT250T6 PO (16:58)
[2021-06-23] MEDS ORDERED: AZITHROMYCIN 250 MG TABLET. PO ONE (17:00)
--- NOTE | 2021-06-24 16:20 | NUR ---
IP: Attempted to contact pt concerning covid results. Phone number provided is not inservice.
== END 2021-06-23 17:23 | disposition home or self-care (01) ==
LOC: ER 10:43
DX: J18.9 Pneumonia, unspecified organism (principal); Z20.822 Contact with and (suspected) exposure to COVID-19; J44.9 Chronic obstructive pulmonary disease, unspecified; I11.0 Hypertensive heart disease with heart failure; I50.9 Heart failure, unspecified; I25.10 Atherosclerotic heart disease of native coronary artery without angina pectoris; E11.9 Type 2 diabetes mellitus without complications; E78.00 Pure hypercholesterolemia, unspecified; I25.2 Old myocardial infarction; Z86.718 Personal history of other venous thrombosis and embolism; Z88.6 Allergy status to analgesic agent
CPT/HCPCS: 71045; 74177; 80053; 81001; 83690; 83735; 84100; 84484; 85025; 87428; 93005; 99285; C9803; Q9967; U0003

== ENCOUNTER 2021-08-05 15:58 | Inpatient (IN) | payer MEDICARE ==
[~2021-08-05] VITALS: Ht 188 cm; Wt 87.5 kg
--- NOTE | 2021-08-05 17:02 | RAD ---
Right hip 2 views with one view pelvis, right knee. HISTORY: Pain after a fall Right knee 2 views were taken of the right knee. There is osteoarthritis most prominent at the patellofemoral co mpartment with joint space narrowing and spurring. There is no fracture or joint effusion. There stab le from vascular surgery. Right hip 2 views with one view pelvis. Single view was taken of the pelvis. There is no acute pelvic fracture. AP and lateral views were taken of the right hip. There is irregularity at the femoral neck, suggesti ng a nondisplaced femoral neck fracture. CT could be of benefit for further evaluation. Femoral head appears rotated posteriorly relative to the neck on the lateral view. IMPRESSION: 1. Arthritis right knee. 2. No fracture right knee. 3. Probable right femoral neck fracture. Electronically signed by: Jus Wood MD (08/05/2021 5:00 PM) [facility]
--- NOTE | 2021-08-05 17:03 | RAD ---
Right shoulder 2 views. HISTORY: Pain after a fall 2 views were taken of the right shoulder. There is a comminuted displaced fracture through the surgic al neck of the proximal humerus. There is also comminuted fracture fragments at the greater tuberosit y. The head is articulating with the glenoid but that shaft is displaced medially. IMPRESSION: 1. Displaced comminuted proximal right humerus fracture. Electronically signed by: Jus Wood MD (08/05/2021 5:01 PM) [facility]
--- NOTE | 2021-08-05 17:13 | RAD ---
XR CHEST 1V Clinical Indication: Reason: fall, right hip fracture. Preop. Comparison: None. Findings: Patient is rotated. Atherosclerotic and ectatic thoracic aorta. The cardiac size is normal. Lungs are clear. There is no pneumothorax. There is right costophrenic angle small pleural effusion or pleural thickening. No acute bone abnormality. IMPRESSION: There is right costophrenic angle pleural thickening or small pleural effusion. Electronically signed by: Myles Jacobo MD (08/05/2021 5:10 PM) [facility]
[2021-08-05 18:08] LABS: BASO % 1 % (0-3); EOS # 0.2 x10^3/uL (0.0-0.7); EOS % 3 % (0-3); HEMATOCRIT 29.8 % (39.0-53.0); HEMOGLOBIN 9.4 g/dL (13.0-17.5); LYMPH % 12 % (24-48); MEAN CORPUSCULAR HEMOGLOBIN 28 pg (25-35); MEAN CORPUSCULAR HGB CONC 32 g/dL (31-37); MEAN CORPUSCULAR VOLUME 89 fL (79-100); MONO # 0.6 x10^3/uL (0.0-1.1); MONO % 7 % (0-9); NEUT # 6.4 x10^3/uL (1.8-7.7); NEUT % 78 % (31-73); PLATELET COUNT 244 x10^3/uL (140-400); RED BLOOD COUNT 3.36 x10^6/uL (4.30-5.70); RED CELL DISTRIBUTION WIDTH 16.1 % (11.5-14.5); WHITE BLOOD COUNT 8.3 x10^3/uL (4.0-11.0)
--- NOTE | 2021-08-05 18:09 | PHYS DOC ---
Past Medical History Past Medical History: Asthma, CAD, CHF, COPD, Diabetes-Type II, DVT, High Cholesterol, Hypertension, AR, Prostatitis, Other Additional Past Medical Histor: EMPHYSEMA Past Surgical History: No Surgical History Additional Past Surgical Histo: Left lower lobectomy; right leg,R TOES AMPUTATED Smoking Status: Never Smoker Alcohol Use: None Drug Use: None General Adult EDM: Chief Complaint: MECHANICAL FALL HPI: HPI: Patient is a 80 year old male with history of diabetes type 2, hypertension, high cholesterol, CHF, asthma, CAD, who presents today to be evaluated after falling. Patient is complaining of moderate pain to the right shoulder and right hip and right knee. He states he was walking into the doctor's office when his right knee gave out and he fell. Denies hitting his head on the ground. Denies any loss of consciousness. Describes the pain as sharp and constant worse on the right shoulder. Review of Systems: Review of Systems: Constitutional: Denies fever or chills. [] Eyes: Denies change in visual acuity. [] HENT: Denies nasal congestion or sore throat. [] Respiratory: Denies cough or shortness of breath. [] Cardiovascular: Denies chest pain or edema. [] GI: Denies abdominal pain, nausea, vomiting, bloody stools or diarrhea. [] : Denies dysuria. [] Musculoskeletal: Reports right shoulder pain, right knee pain, right hip pain. Integument: Denies rash. [] Neurologic: Denies headache, focal weakness or sensory changes. [] Psychiatric: Denies depression or anxiety. [] Heart Score: C/O Chest Pain: N/A Risk Factors: Risk Factors: DM, Current or recent (<one month) smoker, HTN, HLP, family history of CAD, obesity. Risk Scores: Score 0 - 3: 2.5% MACE over next 6 weeks - Discharge Home Score 4 - 6: 20.3% MACE over next 6 weeks - Admit for Clinical Observation Score 7 - 10: 72.7% MACE over next 6 weeks - Early Invasive Strategies Current Medications: Current Medications Medications (Trade) Dose Ordered Sig/Ann Marie Start Time Stop Time Status Last Admin Dose Admin Morphine Sulfate (Morphine Sulfate) 4 mg PRN Q15MIN PRN 08/05/21 17:15 08/06/21 17:14 Allergies: Allergies: Allergies Coded Allergies Type Severity Reaction Last Updated Verified lisinopril Allergy Severe Anaphylaxis 08/05/21 Yes Physical Exam: PE: Constitutional: Well developed, well nourished, no acute distress, non-toxic appearance. [] HENT: Normocephalic, atraumatic, bilateral external ears normal, oropharynx moist, no oral exudates, nose normal. [] Eyes: PERRLA, EOMI, conjunctiva normal, no discharge. [] Neck: Normal range of motion, no tenderness, supple, no stridor. [] Cardiovascular:Heart rate regular rhythm, no murmur [] Lungs & Thorax: Bilateral breath sounds clear to auscultation [] Abdomen: Bowel sounds normal, soft, no tenderness, no masses, no pulsatile masses. [] Skin: Warm, dry, no erythema, no rash. [] Back: No tenderness, no CVA tenderness. [] Extremities: Right shoulder is obviously deformed, moderate tenderness on palpation of the right anterior shoulder, very limited range of motion to the right shoulder, full range of motion to the right fingers, adequate radial, medial, ulnar sensation to the right fingers. +2 right radial pulse. Cap refill less than 2 seconds to right fingers. Right lower extremity with no obvious deformity. Tenderness on palpation of the right lateral hip as well as right anterior knee. Very limited range of motion to the right hip and knee mostly due to pain. +2 right pedal pulse. Cap refill less than 2 seconds of right lower extremity. Neurologic: Alert and oriented X 3, normal motor function, normal sensory function, no focal deficits noted. [] Psychologic: Affect normal, judgement normal, mood normal. [] Current Patient Data: Vital Signs: Vital Signs Date Time Temp Pulse Resp B/P (MAP) Pulse Ox O2 Delivery O2 Flow Rate FiO2 08/05/21 16:00 98.7 144/71 (95 97 98.7 EKG: EKG: [] Radiology/Procedures: Radiology/Procedures: []PROCEDURE: KNEE RIGHT 2V Right hip 2 views with one view pelvis, right knee. HISTORY: Pain after a fall Right knee 2 views were taken of the right knee. There is osteoarthritis most prominent at the patellofemoral compartment with joint space narrowing and spurring. There is no fracture or joint effusion. There stable from vascular surgery. Right hip 2 views with one view pelvis. Single view was taken of the pelvis. There is no acute pelvic fracture. AP and lateral views were taken of the right hip. There is irregularity at the femoral neck, suggesting a nondisplaced femoral neck fracture. CT could be of benefit for further evaluation. Femoral head appears rotated posteriorly relative to the neck on the lateral view. IMPRESSION: 1. Arthritis right knee. 2. No fracture right knee. 3. Probable right femoral neck fracture. Electronically signed by: Jus Wood MD (08/05/2021 5:00 PM) [facility] DICTATED and SIGNED BY: JUS WOOD MD DATE: 08/05/211655 PROCEDURE: SHOULDER 2+V RIGHT Right shoulder 2 views. HISTORY: Pain after a fall 2 views were taken of the right shoulder. There is a comminuted displaced fracture through the surgical neck of the proximal humerus. There is also comminuted fracture fragments at the greater tuberosity. The head is articulating with the glenoid but that shaft is displaced medially. IMPRESSION: 1. Displaced comminuted proximal right humerus fracture. Electronically signed by: Jus Wood MD (08/05/2021 5:01 PM) [facility] DICTATED and SIGNED BY: JUS WOOD MD DATE: 08/05/211699 PROCEDURE: CHEST AP ONLY XR CHEST 1V Clinical Indication: Reason: fall, right hip fracture. Preop. Comparison: None. Findings: Patient is rotated. Atherosclerotic and ectatic thoracic aorta. The cardiac size is normal. Lungs are clear. There is no pneumothorax. There is right costophrenic angle small pleural effusion or pleural thickening. No acute bone abnormality. IMPRESSION: There is right costophrenic angle pleural thickening or small pleural effusion. Electronically signed by: Myles Jacobo MD (08/05/2021 5:10 PM) [facility] DICTATED and SIGNED BY: MYLES JACOBO MD DATE: 08/05/211705 PROCEDURE: CT LOWER EXTREMITY WO RIGHT Exam: CT right hip without contrast INDICATION: Fall right hip pain TECHNIQUE: Sequential axial images through the right hip obtained without IV contrast. Sagittal and coronal reformatted images were reconstructed from the axial data and reviewed. Exposure: One or more of the following in the visualized dose reduction techniques were utilized for this examination: 1. Automated exposure control 2. Adjustment of the MA and/or KV according to patient size 3. Use of iterative of reconstructive technique Comparisons: Radiograph same day FINDINGS: Mildly comminuted fracture through the right femoral neck which is mildly angulated. No other fractures are seen Joint spaces are well-maintained. Visualized intrapelvic structures are unremarkable. Soft tissues of the visualized right lower extremity is unremarkable. IMPRESSION: Mildly comminuted impacted right femoral neck fracture Electronically signed by: Hailey Howard MD (08/05/2021 7:00 PM) [facility] DICTATED and SIGNED BY: HAILEY HOWARD MD DATE: 08/05/211853 PROCEDURE: CT HEAD AND CERVICAL SPINE [facility] Compliance Statement: One or more of the following individualized dose reduction techniques were utilized for this examination: 1. Automated exposure control 2. Adjustment of the mA and/or kV according to patient size 3. Use of iterative reconstruction technique CT HEAD AND CERVICAL SPINE WITHOUT CONTRAST History: Reason: fall, RT SHOULDER FX / Spl. Instructions: / History: Comparison: None. Procedure: Axial images are obtained of the head from the skull base through the vertex without IV contrast. Noncontrast helical CT of the cervical spine was performed. Axial, sagittal, and coronal reconstructions were obtained. Findings: The ventricles and sulci are prominent, consistent with generalized cerebral atrophy. There is minimal periventricular white matter hypoattenuation. This is a nonspecific finding but is commonly due to chronic small vessel ischemic disease in a patient of this age. 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 No mass-effect, midline shift, hemorrhage or obvious acute infarction is identified. Basilar cisterns are patent. Bone windows demonstrate no significant calvarial abnormality. The visualized paranasal sinuses are clear. Mastoid air cells are well aerated. There is no evidence of acute fracture or acute malalignment of the cervical spine. There is facet joints are hypertrophic but intact. There is disc space narrowing and degenerative endplate changes of the cervical spine. There is minimal grade 1 retrolisthesis of C5 on C6. The alignment is otherwise maintained. Mild motion artifact degrades image quality. There is mild pannus posterior to the odontoid. There are bilateral carotid artery calcifications. There is emphysema in the left lung apex. The right lung apex is not imaged. IMPRESSION: 1. No acute intracranial abnormality. 2. No acute fracture of the cervical spine. Electronically signed by: Myles Jacobo MD (08/05/2021 9:58 PM) [facility] DICTATED and SIGNED BY: MYLES JACOBO MD DATE: 08/05/212150 Course & Med Decision Making: Course & Med Decision Making Pertinent Labs and Imaging studies reviewed. (See chart for details) This a 80-year-old male patient presented to the ED today to be evaluated after falling on complaining of right hip, right knee and right shoulder pain. CT of the head and cervical spine are negative for any acute findings. Right shoulder x-rays interpreted by radiologist were noted for displaced comminuted proximal right humerus fracture. Right knee x-rays interpreted by radiologist were negative for any acute findings. Right hip x-rays interpreted by radiologist were noted for possible probable right femoral neck fracture. Right hip CT mildly comminuted impacted right femoral neck fracture Results were discussed with Dr. Venegas Ortho Spoke with who accepted patient for admission Dragon Disclaimer: Dragon Disclaimer: This electronic medical record was generated, in whole or in part, using a voice recognition dictation system. Departure Departure Impression: Primary Impression: Fall Qualified Codes: W19.XXXA - Unspecified fall, initial encounter Additional Impressions: Shoulder fracture, right Qualified Codes: S42.91XA - Fracture of right shoulder girdle, part unspecified, initial encounter for closed fracture Closed right hip fracture Qualified Codes: S72.001A - Fracture of unspecified part of neck of right femur, initial encounter for closed fracture Contusion of right knee Qualified Codes: S80.01XA - Contusion of right knee, initial encounter Acute on chronic renal failure Qualified Codes: N17.9 - Acute kidney failure, unspecified; N18.9 - Chronic kidney disease, unspecified Disposition: ADMITTED INPATIENT Condition: STABLE Referrals: SLADE LOERA MD (PCP) MAVERICK ENRIQUEZ APRN Aug 05, 2021 18:09
[2021-08-05] MEDS: MORPHINE SULFATE 4 MG/ML INJ. IV/SQ PRN ×2 (18:34→22:48)
[2021-08-05 18:37] LABS: ALBUMIN 3.5 g/dL (3.4-5.0); ALBUMIN/GLOBULIN RATIO 1.1 (1.0-1.7); CALCIUM 8.8 mg/dL (8.5-10.1); CREATININE 1.5 mg/dL (0.7-1.3); GFR 54.8; POTASSIUM 4.6 mmol/L (3.5-5.1); TOTAL BILIRUBIN 0.2 mg/dL (0.2-1.0); TOTAL PROTEIN 6.6 g/dL (6.4-8.2)
--- NOTE | 2021-08-05 19:02 | RAD ---
Exam: CT right hip without contrast INDICATION: Fall right hip pain TECHNIQUE: Sequential axial images through the right hip obtained without IV contrast. Sagittal and c oronal reformatted images were reconstructed from the axial data and reviewed. Exposure: One or more of the following in the visualized dose reduction techniques were utilized for this examination: 1. Automated exposure control 2. Adjustment of the MA and/or KV according to patient size 3. Use of iterative of reconstructive technique Comparisons: Radiograph same day FINDINGS: Mildly comminuted fracture through the right femoral neck which is mildly angulated. No other fractur es are seen Joint spaces are well-maintained. Visualized intrapelvic structures are unremarkable. Soft tissues of the visualized right lower extrem ity is unremarkable. IMPRESSION: Mildly comminuted impacted right femoral neck fracture Electronically signed by: Hailey Pink MD (08/05/2021 7:00 PM) [facility]
--- NOTE | 2021-08-05 22:00 | RAD ---
PQ[employer] Compliance Statement: One or more of the following individualized dose reduction techniques were utilized for this examinat ion: 1. Automated exposure control 2. Adjustment of the mA and/or kV according to patient size 3. Use of iterative reconstruction technique CT HEAD AND CERVICAL SPINE WITHOUT CONTRAST History: Reason: fall, RT SHOULDER FX / Spl. Instructions: / History: Comparison: None. Procedure: Axial images are obtained of the head from the skull base through the vertex without IV co ntrast. Noncontrast helical CT of the cervical spine was performed. Axial, sagittal, and coronal rec onstructions were obtained. Findings: The ventricles and sulci are prominent, consistent with generalized cerebral atrophy. There is minim al periventricular white matter hypoattenuation. This is a nonspecific finding but is commonly due t o chronic small vessel ischemic disease in a patient of this age. There is small old infarct of the i nferior left frontal lobe. No mass-effect, midline shift, hemorrhage or obvious acute infarction is identified. Basilar cistern s are patent. Bone windows demonstrate no significant calvarial abnormality. The visualized paranasal sinuses are clear. Mastoid air cells are well aerated. There is no evidence of acute fracture or acute malalignment of the cervical spine. There is facet joints are hypertrophic but intact. There is disc space narrowing and degenerative end plate changes of the cervical spine. There is minimal grade 1 retrolisthesis of C5 on C6. The alignme nt is otherwise maintained. Mild motion artifact degrades image quality. There is mild pannus posteri or to the odontoid. There are bilateral carotid artery calcifications. There is emphysema in the left lung apex. The righ t lung apex is not imaged. IMPRESSION: 1. No acute intracranial abnormality. 2. No acute fracture of the cervical spine. Electronically signed by: Myles Jacobo MD (08/05/2021 9:58 PM) [facility]
[2021-08-05] MEDS ORDERED: ONDANSETRON PF 4 MG/2 ML VIAL. IVP PRN (22:30)
[2021-08-05 23:30] VITALS: BP 171/84
[2021-08-06 00:38] LABS: BACTERIA,URINE 0 /HPF (0-FEW); RBC,URINE 0 /HPF (0-2); WBC,URINE OCC /HPF (0-4)
[2021-08-06] MEDS: MORPHINE SULFATE 4 MG/ML INJ. IVP PRN ×4 (01:05→13:45)
[2021-08-06 01:41] LABS: INFLUENZA A PATIENT POSITIVE (NEGATIVE); INFLUENZA B PATIENT NEGATIVE (NEGATIVE)
--- NOTE | 2021-08-06 01:45 | NUR ---
Patient admitted to room 534 at 2320. Patient hooked up to tele monitor. Patient [place] but oriented, SR on monitor, on 2 L NC, wet cough present, patent IV in place with no drips running. Patient used urinal upon arrival to unit, complains of 10/10 pain on R side. Patient has fractures on R shoulder and R hip and is immobile on that side R/T injury. Morphine given for pain and patient fell asleep shortly after. Patient oriented to unit routines, call light, bed controls, tv controls, activity level, diet, and POC. Morphine given in ER was not reassessed, documented as "not done" by this RN. Patient was swabbed for COVID R/T surgery, lab automatically tests for flu with COVID swabs. Patient is Flu A positive, placed in droplet precautions and Dr. Gandhi notified. Orders received to start Tamiflu 75 mg BID and restart home medications. Patient's VSS and resting comfortably in bed. Will continue to monitor.
[2021-08-06 03:20] VITALS: BP 134/76
[2021-08-06] MEDS ORDERED: CYAN10002 IM (05:12)
[2021-08-06 07:00] VITALS: BP 143/78
[2021-08-06] MEDS: metFORMIN 500 MG TABLET PO SCH ×2 (07:53→17:00)
[2021-08-06 08:40] LABS: BASO % 0 % (0-3); EOS # 0.1 x10^3/uL (0.0-0.7); EOS % 1 % (0-3); HEMATOCRIT 29.4 % (39.0-53.0); HEMOGLOBIN 9.5 g/dL (13.0-17.5); LYMPH # 0.7 x10^3/uL (1.0-4.8); LYMPH % 8 % (24-48); MEAN CORPUSCULAR HEMOGLOBIN 28 pg (25-35); MEAN CORPUSCULAR HGB CONC 32 g/dL (31-37); MEAN CORPUSCULAR VOLUME 88 fL (79-100); MONO # 0.5 x10^3/uL (0.0-1.1); MONO % 6 % (0-9); NEUT # 7.1 x10^3/uL (1.8-7.7); NEUT % 85 % (31-73); PLATELET COUNT 225 x10^3/uL (140-400); RED BLOOD COUNT 3.36 x10^6/uL (4.30-5.70); RED CELL DISTRIBUTION WIDTH 15.9 % (11.5-14.5); WHITE BLOOD COUNT 8.4 x10^3/uL (4.0-11.0)
--- NOTE | 2021-08-06 08:41 | EKG ---
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
[2021-08-06] MEDS: SERTRALINE 50 MG TABLET. PO SCH (08:48)
[2021-08-06] MEDS: ISOSORBIDE MONONITRATE ER 30 MG TAB.ER.24H PO SCH (08:48)
[2021-08-06] MEDS: OSELTAMIVIR 30 MG CAPSULE PO SCH ×2 (08:48→21:00)
[2021-08-06] MEDS ORDERED: FUROSEMIDE 40 MG TABLET. PO SCH (09:00)
[2021-08-06] MEDS ORDERED: AZITHROMYCIN 250 MG TABLET. PO SCH (09:00)
[2021-08-06 09:03] LABS: ALBUMIN 3.2 g/dL (3.4-5.0); ALBUMIN/GLOBULIN RATIO 0.9 (1.0-1.7); CALCIUM 8.7 mg/dL (8.5-10.1); CREATININE 1.4 mg/dL (0.7-1.3); GFR 59.3; POTASSIUM 4.1 mmol/L (3.5-5.1); TOTAL BILIRUBIN 0.5 mg/dL (0.2-1.0); TOTAL PROTEIN 6.8 g/dL (6.4-8.2)
[2021-08-06] MEDS ORDERED: IV DEXTROSE 5% 250 ML BAG. IV PRN (09:15)
[2021-08-06] MEDS ORDERED: IPRATRPIUM/ALBUTEROL 0.5/2.5MG 3 ML NEBU. NEB ONE (09:15)
[2021-08-06] MEDS ORDERED: DEXTROSE 50% 25 GM / 50ML DISP.SYRIN. IV PRN (09:15)
--- NOTE | 2021-08-06 09:19 | PDOC ---
Provider Note Date of Service: DATE: 08/06/21 TIME: 09:18 Provider Note Pt seen .H&P dictated.#[id number]. Justifications for Admission Other Justification SLADE LOERA MD Aug 06, 2021 09:19
--- NOTE | 2021-08-06 09:36 | HP ---
DATE OF SERVICE: 08/06/2021 ADMIT DATE: 08/05/2021 PATIENT LOCATION: 534. REASON FOR ADMISSION TO THE HOSPITAL: Mechanical fall, right shoulder fracture, right hip fracture. HISTORY OF PRESENT ILLNESS: The patient is a 80-year-old male. The patient has a history of chronic multiple problems including diabetes, emphysema, peripheral vascular disease, coronary artery disease and BPH. He had an appointment yesterday to the doctor's office and he came with somebody to help him, but he was walking by himself to the board writer desk and he fell and he said he was dizzy, fell and then the patient is not able to lift his right arm or right leg. The patient was sent to the hospital by ambulance, had x-ray of the shoulder shows a fracture. X-ray of the right hip showed a fracture. CT head was negative for bleed or stroke. The patient is being seen by Orthopedic. Probably will be scheduled for surgery later today. PAST MEDICAL HISTORY: As mentioned, has a history of coronary artery disease, has a good left ventricle function 2 years ago, was evaluated, COPD, diabetes, peripheral vascular disease, hypertension, BPH. PAST SURGICAL HISTORY: Left lower lobectomy. The patient had a bypass to the right leg. Had a right first, second, fourth toes amputated. ALLERGIES: LISINOPRIL. FAMILY HISTORY: Previous smoker. Denies alcohol, denies any street drugs. The patient usually ambulates reasonably well. MEDICATIONS AT HOME: The patient is on amlodipine 5 mg daily, atorvastatin 20 mg daily, he is off B12 shots, Lasix 40 mg daily, isosorbide 150 mg daily, metformin 500 mg twice a day, Zoloft 50 mg daily, Flomax 0.4 daily. FAMILY HISTORY: Positive for heart disease, diabetes. SOCIAL HISTORY: The patient lives at home with his . PHYSICAL EXAMINATION: GENERAL: The patient has a thick accent, hard to understand, but is able to communicate. VITAL SIGNS: Temperature 98, pulse 70, respirations 18, blood pressure 144/71, 97 on room air. HEENT: Head is atraumatic. Pupils are equal. Oral cavity, no teeth. NECK: Supple. Thyroid not enlarged. JVD not elevated. CHEST: Symmetrical. CARDIOVASCULAR: S1, S2. LUNGS: Bilateral minimal wheezing. ABDOMEN: Soft, some excoriations in the abdominal wall from scratching. EXTERNAL GENITALIA: No [place]. RECTAL: Deferred. EXTREMITIES: The patient had a scar of her left bypass surgery and the first, second, fourth toes are amputated. Dry skin. Decreased pulsations right foot, no ulceration. The patient has pain in the right hip. The patient has swelling in the right shoulder, not able to lift the shoulder or not able to move the right leg. NEUROLOGIC: Cranial nerves normal, awake, making conversation, answering questions. LABORATORY DATA: White count 8, hemoglobin 9.4, platelets 244. INR 1.0. Electrolytes show sodium 140, potassium 4.6, chloride 104, bicarb 27, BUN 30, creatinine 1.5, glucose 136. Magnesium 2.0. LFTs normal. Troponin negative. Urine negative for infection. Influenza A was positive. COVID is negative. Had a CT head, no fracture, no bleeding, no stroke. CT C-spine negative. Had a chest x-ray, some scarring in the lung. X-ray of the right shoulder shows a displaced communicated proximal right humeral fracture and lower extremity CT shows a fracture of the right femoral neck. EKG done, pending. FINAL IMPRESSION: 1. Mechanical fall. 2. Possible syncopal episode. 3. Right shoulder fracture. 4. Right hip fracture. 5. Emphysema. 6. Coronary artery disease. 7. Benign prostatic hypertrophy. 8. Peripheral vascular disease, history of previous bypass surgery. 9. Influenza A. PLAN: At this time, the patient was admitted to the hospital, hydrated with IV fluids, so well start him on Tamiflu. Orthopedic is consulted for shoulder and hip fracture and also will consult Cardiology as well as Neurology to rule out any cardiac arrhythmias causing problems as well as possible cause for syncopal episode. Further recommendations to follow. [place]/DREW DR: [place]/taylor TID: [id number]
[2021-08-06] MEDS: POTASSIUM CL 20MEQ D5-0.9%NACL 1,000 ML IV SCH ×2 (10:00→21:51)
[2021-08-06 10:43] VITALS: BP 145/74
--- NOTE | 2021-08-06 10:51 | PDOC2 ---
SHIVA JEREZ [employer] 08/06/21 1051: CARDIAC CONSULT DATE OF CONSULT Date of Consult DATE: 08/06/21 TIME: 10:33 REASON FOR CONSULT Reason for Consult: Preop clearance REFERRING PHYSICIAN Referring Physician: Hiram SOURCE Source: Chart review, Patient HISTORY OF PRESENT ILLNESS HISTORY OF PRESENT ILLNESS This is a 80 yo male admitted for fall. He was at the doctors office yesterday when he got dizzy and fell which afterwards he was not able to lift his right arm and right leg. Further imaging revealed that he has a shoulder and hip fracture. No noted details of seizures or lost of consciousness. Presently denies any chest pain or SOA but currently wheezing and disoriented to time. He has multiple appointments in our office which did not show up so unclear if he has been following up with other pneumatic jacketer. 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 07/19/2016, 06/2016 IVC filter, 09/2016 Right pop DP bypass then partial digit amputations of first, second and fifth toes and heel debridement, right heel. FAMILY HISTORY Family History noncontributory SOCIAL HISTORY Smoke: <1 pack per day ALCOHOL: none Drugs: None Lives: with Family CURRENT MEDICATIONS CURRENT MEDICATIONS Current Medications Medications (Trade) Dose Ordered Sig/Ann Marie Route PRN Reason Start Time Stop Time Status Last Admin Dose Admin Morphine Sulfate (Morphine Sulfate) 4 mg PRN Q15MIN PRN IV/SQ PAIN GREATER THAN 3/10 08/05/21 17:15 08/06/21 17:14 08/05/21 22:48 Morphine Sulfate (Morphine Sulfate) 4 mg PRN Q2HR PRN IVP PAIN 08/05/21 22:30 08/06/21 22:29 08/06/21 07:50 Potassium Chloride/Dextrose/ Sod Cl 1,000 ml @ 100 mls/hr Q10H IV 08/06/21 10:00 08/06/21 10:00 ALLERGIES ALLERGIES: Coded Allergies: lisinopril (Verified Allergy, Severe, Anaphylaxis, 08/05/21) Emergent Intubation 07/12/16. ROS Review of System limited, poor historian PHYSICAL EXAM General: Alert, Cooperative, mild distress, Other (disoriented to time) HEENT: Atraumatic, Other (dry oral mucosa) Lungs: Other (diffuse expiratory wheezing with mild tachypnea) Heart: Regular rate, Normal S1, Normal S2, No murmurs Abdomen: Soft, No tenderness Extremities: No cyanosis, No edema Skin: No rashes Neuro: Normal speech, Sensation intact Psych/Mental Status: Other (flat affect) MUSCULOSKELETAL: Osteoarthritic changes both hands, Other (right proximal humeral and right femoral neck fracture) VITALS/I&O VITALS/I&O: Vital Signs Date Time Temp Pulse Resp B/P (MAP) Pulse Ox O2 Delivery O2 Flow Rate FiO2 08/06/21 08:00 Nasal Cannula 2.0 08/06/21 07:00 97.7 92 22 143/78 (99) 89 97.7 I & O 08/05/21 08/05/21 08/06/21 15:00 23:00 07:00 Output Total 225 ml Balance -225 ml LABS Lab: Laboratory Tests Test 08/05/21 17:55 08/05/21 21:30 08/05/21 23:50 08/06/21 00:00 White Blood Count 8.3 x10^3/uL (4.0-11.0) Red Blood Count 3.36 x10^6/uL (4.30-5.70) L Hemoglobin 9.4 g/dL (13.0-17.5) L Hematocrit 29.8 % (39.0-53.0) L Mean Corpuscular Volume 89 fL (79-100) Mean Corpuscular Hemoglobin 28 pg (25-35) Mean Corpuscular Hemoglobin Concent 32 g/dL (31-37) Red Cell Distribution Width 16.1 % (11.5-14.5) H Platelet Count 244 x10^3/uL (140-400) Neutrophils (%) (Auto) 78 % (31-73) H Lymphocytes (%) (Auto) 12 % (24-48) L Monocytes (%) (Auto) 7 % (0-9) Eosinophils (%) (Auto) 3 % (0-3) Basophils (%) (Auto) 1 % (0-3) Neutrophils # (Auto) 6.4 x10^3/uL (1.8-7.7) Lymphocytes # (Auto) 1.0 x10^3/uL (1.0-4.8) Monocytes # (Auto) 0.6 x10^3/uL (0.0-1.1) Eosinophils # (Auto) 0.2 x10^3/uL (0.0-0.7) Basophils # (Auto) 0.0 x10^3/uL (0.0-0.2) Prothrombin Time 13.0 SEC (11.7-14.0) Prothrombin Time INR 1.0 (0.8-1.1) Activated Partial Thromboplast Time 32 SEC (24-38) Sodium Level 140 mmol/L (136-145) Potassium Level 4.6 mmol/L (3.5-5.1) Chloride Level 104 mmol/L (98-107) Carbon Dioxide Level 27 mmol/L (21-32) Anion Gap 9 (6-14) Blood Urea Nitrogen 30 mg/dL (8-26) H Creatinine 1.5 mg/dL (0.7-1.3) H Estimated GFR (Cockcroft-Gault) 54.8 BUN/Creatinine Ratio 20 (6-20) Glucose Level 136 mg/dL (70-99) H Calcium Level 8.8 mg/dL (8.5-10.1) Magnesium Level 2.0 mg/dL (1.8-2.4) Total Bilirubin 0.2 mg/dL (0.2-1.0) Aspartate Amino Transferase (AST) 11 U/L (15-37) L Alanine Aminotransferase (ALT) 11 U/L (16-63) L Alkaline Phosphatase 83 U/L (46-116) Troponin I High Sensitivity 6 ng/L (4-75) 9 ng/L (4-75) 9 ng/L (4-75) WC-Cyc-X-Type Natriuretic Peptide 235 pg/mL (0-449) Total Protein 6.6 g/dL (6.4-8.2) Albumin 3.5 g/dL (3.4-5.0) Albumin/Globulin Ratio 1.1 (1.0-1.7) Urine Collection Type Unknown Urine Color (Auto) Light yellow Urine Turbidity Clear Urine pH (Auto) 5.0 (<5.0-8.0) Urine Specific [place] 1.013 (1.000-1.030) Urine Protein (Auto) Negative mg/dL (Negative) Urine Glucose (Auto)(UA) Negative mg/dL (Negative) Urine Ketones (Auto) Negative mg/dL (Negative) Urine Blood (Auto) Negative (Negative) Urine Nitrite Negative (Negative) Urine Bilirubin (Auto) Negative (Negative) Urine Urobilinogen (Auto) Normal mg/dL (Normal) Urine Leukocyte Esterase (Auto) Negative (Negative) Urine RBC 0 /HPF (0-2) Urine WBC Occ /HPF (0-4) Urine Squamous Epithelial Cells Few /LPF Urine Bacteria 0 /HPF (0-FEW) Urine Mucus Slight /LPF Influenza Type A Antigen Positive (NEGATIVE) Influenza Type B Antigen Negative (NEGATIVE) SARS-CoV-2 Antigen (Rapid) Negative (NEGATIVE) Test 08/06/21 07:40 White Blood Count 8.4 x10^3/uL (4.0-11.0) Red Blood Count 3.36 x10^6/uL (4.30-5.70) L Hemoglobin 9.5 g/dL (13.0-17.5) L Hematocrit 29.4 % (39.0-53.0) L Mean Corpuscular Volume 88 fL (79-100) Mean Corpuscular Hemoglobin 28 pg (25-35) Mean Corpuscular Hemoglobin Concent 32 g/dL (31-37) Red Cell Distribution Width 15.9 % (11.5-14.5) H Platelet Count 225 x10^3/uL (140-400) Neutrophils (%) (Auto) 85 % (31-73) H Lymphocytes (%) (Auto) 8 % (24-48) L Monocytes (%) (Auto) 6 % (0-9) Eosinophils (%) (Auto) 1 % (0-3) Basophils (%) (Auto) 0 % (0-3) Neutrophils # (Auto) 7.1 x10^3/uL (1.8-7.7) Lymphocytes # (Auto) 0.7 x10^3/uL (1.0-4.8) L Monocytes # (Auto) 0.5 x10^3/uL (0.0-1.1) Eosinophils # (Auto) 0.1 x10^3/uL (0.0-0.7) Basophils # (Auto) 0.0 x10^3/uL (0.0-0.2) Sodium Level 139 mmol/L (136-145) Potassium Level 4.1 mmol/L (3.5-5.1) Chloride Level 104 mmol/L (98-107) Carbon Dioxide Level 28 mmol/L (21-32) Anion Gap 7 (6-14) Blood Urea Nitrogen 29 mg/dL (8-26) H Creatinine 1.4 mg/dL (0.7-1.3) H Estimated GFR (Cockcroft-Gault) 59.3 BUN/Creatinine Ratio 21 (6-20) H Glucose Level 150 mg/dL (70-99) H Calcium Level 8.7 mg/dL (8.5-10.1) Total Bilirubin 0.5 mg/dL (0.2-1.0) Aspartate Amino Transferase (AST) 13 U/L (15-37) L Alanine Aminotransferase (ALT) 12 U/L (16-63) L Alkaline Phosphatase 68 U/L (46-116) Total Protein 6.8 g/dL (6.4-8.2) Albumin 3.2 g/dL (3.4-5.0) L Albumin/Globulin Ratio 0.9 (1.0-1.7) L Laboratory Tests 08/05/21 17:55 08/06/21 07:40 Laboratory Tests 08/05/21 17:55 08/06/21 07:40 ECHOCARDIOGRAM ECHOCARDIOGRAM <Conclusion> The left ventricular systolic function is normal and the ejection fraction is within normal range. The Ejection Fraction is 55-60%. There is normal LV segmental wall motion. Doppler and Color Flow revealed trace tricuspid regurgitation with an estimated PAP of 62 mmHg. DATE: 04/13/19 163 HEART CATH HEART CATH LEFT VENTRICULOGRAM: EF >70% Anterobasal: Normal. Anterolateral: Normal Apical: Normal Diaphragmatic: Normal Posterobasal: Normal CORONARY ANGIOGRAPHY: LM is a large caliber vessel with normal angiographic appearance. LAD is a large caliber vessel with mild luminal irregularities. D1 is a moderate caliber vessel with normal angiographic apeparance. LCx is a moderate caliber non-dominant vessel with mild luminal irregularities. OM1 is a moderate caliber vessel with normal angiographic appearance. RCA is a large caliber dominant vessel with normal angiographic appearance. RPDA and RPL are moderate caliber vessels with normal angiographic appearance. Conclusion No significant obstructive coronary disease. Normal LV systolic function. Recommendations Aggressive Medical Therapy DATE: 07/15/16 1400 ASSESSMENT/PLAN ASSESSMENT/PLAN 1. Traumatic mechanical fall 2. Right femoral neck and right proximal humeral fracture 3. AECOPD with continued tobacco use per PCP 4. Chronic diastolic CHF: compensated 5. Presyncope: no arrhythmias so far and no mention of hypoglycemic spell 6. HTN; controlled 6. 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 CKD3 8. DM2 9. Normocytic anemia 10. Flu A: per PCP 11. Hx of PAD with revascularization Recommendations 1. TTE, place on tele monitor 2. Continue home BP regimen, Secondary prevention measures 3. Smoking cessation 4. He is moderate risk for perioperative CV events for noncardiac surgery CHANCE PEÑA MD 08/06/211927: CARDIAC CONSULT ASSESSMENT/PLAN ASSESSMENT/PLAN Patient seen and examined. Agree with TOOL BUILDER's assessment and plan as stated above. We will check 2D echo and make further recommendations. Thank you for your consultation SHIVA JEREZ APRN Aug 06, 2021 10:51 CHANCE PEÑA MD Aug 06, 2021 19:28
[2021-08-06] MEDS: IPRATRPIUM/ALBUTEROL 0.5/2.5MG 3 ML NEBU. NEB SCH ×3 (11:35→21:49)
[2021-08-06] MEDS: INSULIN LISPRO 300 UNITS/3 ML VIAL. SQ SCH ×2 (11:36→17:00)
--- NOTE | 2021-08-06 14:12 | PDOC2 ---
NEUROLOGY CONSULT Date of Service DOS: DATE: 08/06/21 TIME: 14:05 Reason for Consult Reason for Consult: Syncope Referring Physician Referring Physician: Dr. Gandhi Source Source: Chart review History of Present Illness History of Present Illness The patient is a 80-year-old right-handed male who fell at his physician's office yesterday. He fractured his right shoulder and right hip. There is no listed history of stroke, seizure, or head injury. There is no mention of any seizure activity in the office. Past Medical History Cardiovascular: CAD, HTN, Other (Peripheral vascular disease) Pulmonary: COPD Heme/Onc: Anemia NOS Renal/: Benign prostatic enlarg. Endocrine: Diabetes Past Surgical History Past Surgical History: Other (Left lower lobectomy, bypass to the right leg., right first, second, fourth toes amputated.) Family History Family History: CAD, DM Social History Social History Previous smoker, , no alcohol or street drugs Current Medications Current Medications Current Medications Morphine Sulfate (Morphine Sulfate) 4 mg PRN Q15MIN PRN IV/SQ PAIN GREATER THAN 3/10 Last administered on 08/05/21at 22:48; Start 08/05/21 at 17:15; Stop 08/06/21 at 17:14 Ondansetron HCl (Zofran) 4 mg PRN Q8HRS PRN IVP NAUSEA/VOMITING; Start 08/05/21 at 22:30; Stop 08/06/21 at 22:29 Morphine Sulfate (Morphine Sulfate) 4 mg PRN Q2HR PRN IVP PAIN Last administered on 08/06/21at 13:45; Start 08/05/21 at 22:30; Stop 08/06/21 at 22:29 Oseltamivir Phosphate (Tamiflu) 30 mg BID PO ; Start 08/06/21 at 09:00; Stop 08/11/21 at 08:59 Amlodipine Besylate (Norvasc) 5 mg DAILY PO ; Start 08/06/21 at 09:00 Atorvastatin Calcium (Lipitor) 20 mg HS PO ; Start 08/06/21 at 21:00 Azithromycin (Zithromax) 250 mg BID PO ; Start 08/06/21 at 09:00; Status UNV Furosemide (Lasix) 40 mg DAILY PO ; Start 08/06/21 at 09:00; Stop 08/06/21 at 09:11; Status DC Metformin HCl (Glucophage) 500 mg BIDWMEALS PO ; Start 08/06/21 at 08:00 Sertraline HCl (Zoloft) 50 mg DAILY PO ; Start 08/06/21 at 09:00 Tamsulosin HCl (Flomax) 0.4 mg QHS PO ; Start 08/06/21 at 21:00 Cyanocobalamin (Vitamin B-12 Inj) 1,000 mcg WEEKLY IM ; Start 08/07/21 at 09:00 Isosorbide Mononitrate (Imdur) 120 mg DAILY PO ; Start 08/06/21 at 09:00 Fentanyl Citrate (Fentanyl 2ml Vial) 25 mcg PRN Q5MIN PRN IVP MILD PAIN 1-3; Start 08/07/21 at 06:00; Stop 08/08/21 at 05:59 Fentanyl Citrate (Fentanyl 2ml Vial) 50 mcg PRN Q5MIN PRN IVP MODERATE PAIN 4- 6; Start 08/07/21 at 06:00; Stop 08/08/21 at 05:59 Morphine Sulfate (Morphine Sulfate) 1 mg PRN Q10MIN PRN IVP SEVERE PAIN 7-10; Start 08/07/21 at 06:00; Stop 08/08/21 at 05:59 Ringer's Solution 1,000 ml @ 30 mls/hr Q24H IV ; Start 08/07/21 at 06:00; Stop 08/07/21 at 17:59 Hydromorphone HCl (Dilaudid) 0.5 mg PRN Q10MIN PRN IVP SEVERE PAIN 7-10, 2nd CHOICE; Start 08/07/21 at 06:00; Stop 08/08/21 at 05:59 Prochlorperazine Edisylate (Compazine) 5 mg PACU PRN PRN IVP NAUSEA, MRX1; Start 08/07/21 at 06:00; Stop 08/08/21 at 05:59 Potassium Chloride/Dextrose/ Sod Cl 1,000 ml @ 100 mls/hr Q10H IV Last administered on 08/06/21at 10:00; Start 08/06/21 at 10:00 Albuterol/ Ipratropium (Duoneb) 3 ml 1X ONCE NEB ; Start 08/06/21 at 09:15; Stop 08/06/21 at 09:16; Status DC Albuterol/ Ipratropium (Duoneb) 3 ml RTQID NEB Last administered on 08/06/21at 11:35; Start 08/06/21 at 12:00 Insulin Human Lispro (HumaLOG) 0-5 UNITS TIDWMEALS SQ ; Start 08/06/21 at 12:00 Dextrose (Dextrose 50%-Water Syringe) 12.5 gm PRN Q15MIN PRN IV SEE COMMENTS; Start 08/06/21 at 09:15 Dextrose (Iv Dextrose 5%) 250 ml PRN Q15MIN PRN IV SEE COMMENTS; Start 08/06/21 at 09:15 Cefazolin Sodium/ Dextrose 50 ml @ 100 mls/hr 1X ONCE IV ; Start 08/07/21 at 06:00; Stop 08/07/21 at 06:29 Active Scripts Active Azithromycin Tablet (Azithromycin) 250 Mg Tablet 1 Pkg PO UD 5 Days 2 the first day followed by 1 for days 2-5 Sertraline Hcl 50 Mg Tablet 50 Mg PO DAILY 30 Days Amlodipine Besylate 5 Mg Tablet 5 Mg PO DAILY 30 Days Lasix (Furosemide) 40 Mg Tablet 1 Tab PO DAILY Reported Cyanocobalamin Injection (Cyanocobalamin (Vitamin B-12)) 1,000 Mcg/1 Ml Vial 1 Ml IM WEEKLY Isosorbide Mononitrate Er (Isosorbide Mononitrate) 60 Mg Tab.er.24h 2 Tab PO DAILY Flomax (Tamsulosin Hcl) 0.4 Mg Cap.er.24h 0.4 Mg PO QHS Metformin Hcl Er (Metformin Hcl) 500 Mg Tab.er.24h 500 Mg PO BID 15 Days Atorvastatin Calcium 20 Mg Tablet 1 Tab PO HS Allergies Allergies: Coded Allergies: lisinopril (Verified Allergy, Severe, Anaphylaxis, 08/05/21) Emergent Intubation 07/12/16. ROS Review of System Not reliably obtained Physical Exam Physical Examination General: Well-developed, well-nourished black male in no acute distress HEENT: Normocephalic andatraumatic. Tympanic membranes clear.Temporal arteriespulsatile and nontender.Fundoscopic exam unremarkable Neck: Supple without bruit, no meningismus Musculoskeletal: Stability:see neurologic. Gait exam:see neurologic. Tone:see neurolo gic.Strength:see neurologic. Neurological: Mental Status:orientation, memory, attention span/concentration, language, fund of knowledge: He can tell me his name but not the date or location. Does follow some simple commands, has trouble with repetition, able to name. Cranial Nerves:Pupils equal and reactive to light, extraocular movements areintact, visual gamez are full to confrontation. Facial sensation is normal. There is no facial asymmetry. Vestibulo-ocular reflex is intact. Palate elevates and tongue protrudes in midline. All other cranial related problems are negative except as mentioned before.Reflexes:2+ and symmetric with flexor plantar responses. Motor: Splints the right arm and right leg, left side is 4/5, normal tone and bulk. Coordination and gait:Not cooperative. Sensory:Responds to pinprick in all 4 extremities Vitals VITALS Vital Signs Date Time Temp Pulse Resp B/P (MAP) Pulse Ox O2 Delivery O2 Flow Rate FiO2 08/06/21 11:38 94 Nasal Cannula 3.0 08/06/21 10:43 98.5 96 22 145/74 (97) 98.5 Labs Labs Laboratory Tests Test 08/05/21 17:55 08/05/21 21:30 08/05/21 23:50 08/06/21 00:00 White Blood Count 8.3 x10^3/uL (4.0-11.0) Red Blood Count 3.36 x10^6/uL (4.30-5.70) Hemoglobin 9.4 g/dL (13.0-17.5) Hematocrit 29.8 % (39.0-53.0) Mean Corpuscular Volume 89 fL (79-100) Mean Corpuscular Hemoglobin 28 pg (25-35) Mean Corpuscular Hemoglobin Concent 32 g/dL (31-37) Red Cell Distribution Width 16.1 % (11.5-14.5) Platelet Count 244 x10^3/uL (140-400) Neutrophils (%) (Auto) 78 % (31-73) Lymphocytes (%) (Auto) 12 % (24-48) Monocytes (%) (Auto) 7 % (0-9) Eosinophils (%) (Auto) 3 % (0-3) Basophils (%) (Auto) 1 % (0-3) Neutrophils # (Auto) 6.4 x10^3/uL (1.8-7.7) Lymphocytes # (Auto) 1.0 x10^3/uL (1.0-4.8) Monocytes # (Auto) 0.6 x10^3/uL (0.0-1.1) Eosinophils # (Auto) 0.2 x10^3/uL (0.0-0.7) Basophils # (Auto) 0.0 x10^3/uL (0.0-0.2) Prothrombin Time 13.0 SEC (11.7-14.0) Prothromb Time International Ratio 1.0 (0.8-1.1) Activated Partial Thromboplast Time 32 SEC (24-38) Sodium Level 140 mmol/L (136-145) Potassium Level 4.6 mmol/L (3.5-5.1) Chloride Level 104 mmol/L (98-107) Carbon Dioxide Level 27 mmol/L (21-32) Anion Gap 9 (6-14) Blood Urea Nitrogen 30 mg/dL (8-26) Creatinine 1.5 mg/dL (0.7-1.3) Estimated GFR (Cockcroft-Gault) 54.8 BUN/Creatinine Ratio 20 (6-20) Glucose Level 136 mg/dL (70-99) Calcium Level 8.8 mg/dL (8.5-10.1) Magnesium Level 2.0 mg/dL (1.8-2.4) Total Bilirubin 0.2 mg/dL (0.2-1.0) Aspartate Amino Transf (AST/SGOT) 11 U/L (15-37) Alanine Aminotransferase (ALT/SGPT) 11 U/L (16-63) Alkaline Phosphatase 83 U/L (46-116) Troponin I High Sensitivity 6 ng/L (4-75) 9 ng/L (4-75) 9 ng/L (4-75) CR-Sfc-G-Type Natriuretic Peptide 235 pg/mL (0-449) Total Protein 6.6 g/dL (6.4-8.2) Albumin 3.5 g/dL (3.4-5.0) Albumin/Globulin Ratio 1.1 (1.0-1.7) Urine Collection Type Unknown Urine Color (Auto) Light yellow Urine Turbidity Clear Urine pH (Auto) 5.0 (<5.0-8.0) Urine Specific Dowell 1.013 (1.000-1.030) Urine Protein (Auto) Negative mg/dL (Negative) Urine Glucose (Auto)(UA) Negative mg/dL (Negative) Urine Ketones (Auto) Negative mg/dL (Negative) Urine Blood (Auto) Negative (Negative) Urine Nitrite Negative (Negative) Urine Bilirubin (Auto) Negative (Negative) Urine Urobilinogen (Auto) Normal mg/dL (Normal) Urine Leukocyte Esterase (Auto) Negative (Negative) Urine RBC 0 /HPF (0-2) Urine WBC Occ /HPF (0-4) Urine Squamous Epithelial Cells Few /LPF Urine Bacteria 0 /HPF (0-FEW) Urine Mucus Slight /LPF Influenza Type A Antigen Positive (NEGATIVE) Influenza Type B Antigen Negative (NEGATIVE) SARS-CoV-2 Antigen (Rapid) Negative (NEGATIVE) Test 08/06/21 07:40 08/06/21 11:32 White Blood Count 8.4 x10^3/uL (4.0-11.0) Red Blood Count 3.36 x10^6/uL (4.30-5.70) Hemoglobin 9.5 g/dL (13.0-17.5) Hematocrit 29.4 % (39.0-53.0) Mean Corpuscular Volume 88 fL (79-100) Mean Corpuscular Hemoglobin 28 pg (25-35) Mean Corpuscular Hemoglobin Concent 32 g/dL (31-37) Red Cell Distribution Width 15.9 % (11.5-14.5) Platelet Count 225 x10^3/uL (140-400) Neutrophils (%) (Auto) 85 % (31-73) Lymphocytes (%) (Auto) 8 % (24-48) Monocytes (%) (Auto) 6 % (0-9) Eosinophils (%) (Auto) 1 % (0-3) Basophils (%) (Auto) 0 % (0-3) Neutrophils # (Auto) 7.1 x10^3/uL (1.8-7.7) Lymphocytes # (Auto) 0.7 x10^3/uL (1.0-4.8) Monocytes # (Auto) 0.5 x10^3/uL (0.0-1.1) Eosinophils # (Auto) 0.1 x10^3/uL (0.0-0.7) Basophils # (Auto) 0.0 x10^3/uL (0.0-0.2) Sodium Level 139 mmol/L (136-145) Potassium Level 4.1 mmol/L (3.5-5.1) Chloride Level 104 mmol/L (98-107) Carbon Dioxide Level 28 mmol/L (21-32) Anion Gap 7 (6-14) Blood Urea Nitrogen 29 mg/dL (8-26) Creatinine 1.4 mg/dL (0.7-1.3) Estimated GFR (Cockcroft-Gault) 59.3 BUN/Creatinine Ratio 21 (6-20) Glucose Level 150 mg/dL (70-99) Calcium Level 8.7 mg/dL (8.5-10.1) Total Bilirubin 0.5 mg/dL (0.2-1.0) Aspartate Amino Transf (AST/SGOT) 13 U/L (15-37) Alanine Aminotransferase (ALT/SGPT) 12 U/L (16-63) Alkaline Phosphatase 68 U/L (46-116) Total Protein 6.8 g/dL (6.4-8.2) Albumin 3.2 g/dL (3.4-5.0) Albumin/Globulin Ratio 0.9 (1.0-1.7) Glucose (Fingerstick) 186 mg/dL (70-99) Laboratory Tests Test 08/05/21 17:55 08/05/21 21:30 08/05/21 23:50 08/06/21 00:00 White Blood Count 8.3 x10^3/uL (4.0-11.0) Red Blood Count 3.36 x10^6/uL (4.30-5.70) Hemoglobin 9.4 g/dL (13.0-17.5) Hematocrit 29.8 % (39.0-53.0) Mean Corpuscular Volume 89 fL (79-100) Mean Corpuscular Hemoglobin 28 pg (25-35) Mean Corpuscular Hemoglobin Concent 32 g/dL (31-37) Red Cell Distribution Width 16.1 % (11.5-14.5) Platelet Count 244 x10^3/uL (140-400) Neutrophils (%) (Auto) 78 % (31-73) Lymphocytes (%) (Auto) 12 % (24-48) Monocytes (%) (Auto) 7 % (0-9) Eosinophils (%) (Auto) 3 % (0-3) Basophils (%) (Auto) 1 % (0-3) Neutrophils # (Auto) 6.4 x10^3/uL (1.8-7.7) Lymphocytes # (Auto) 1.0 x10^3/uL (1.0-4.8) Monocytes # (Auto) 0.6 x10^3/uL (0.0-1.1) Eosinophils # (Auto) 0.2 x10^3/uL (0.0-0.7) Basophils # (Auto) 0.0 x10^3/uL (0.0-0.2) Prothrombin Time 13.0 SEC (11.7-14.0) Prothromb Time International Ratio 1.0 (0.8-1.1) Activated Partial Thromboplast Time 32 SEC (24-38) Sodium Level 140 mmol/L (136-145) Potassium Level 4.6 mmol/L (3.5-5.1) Chloride Level 104 mmol/L (98-107) Carbon Dioxide Level 27 mmol/L (21-32) Anion Gap 9 (6-14) Blood Urea Nitrogen 30 mg/dL (8-26) Creatinine 1.5 mg/dL (0.7-1.3) Estimated GFR (Cockcroft-Gault) 54.8 BUN/Creatinine Ratio 20 (6-20) Glucose Level 136 mg/dL (70-99) Calcium Level 8.8 mg/dL (8.5-10.1) Magnesium Level 2.0 mg/dL (1.8-2.4) Total Bilirubin 0.2 mg/dL (0.2-1.0) Aspartate Amino Transf (AST/SGOT) 11 U/L (15-37) Alanine Aminotransferase (ALT/SGPT) 11 U/L (16-63) Alkaline Phosphatase 83 U/L (46-116) Troponin I High Sensitivity 6 ng/L (4-75) 9 ng/L (4-75) 9 ng/L (4-75) WC-Ige-T-Type Natriuretic Peptide 235 pg/mL (0-449) Total Protein 6.6 g/dL (6.4-8.2) Albumin 3.5 g/dL (3.4-5.0) Albumin/Globulin Ratio 1.1 (1.0-1.7) Urine Collection Type Unknown Urine Color (Auto) Light yellow Urine Turbidity Clear Urine pH (Auto) 5.0 (<5.0-8.0) Urine Specific Dowell 1.013 (1.000-1.030) Urine Protein (Auto) Negative mg/dL (Negative) Urine Glucose (Auto)(UA) Negative mg/dL (Negative) Urine Ketones (Auto) Negative mg/dL (Negative) Urine Blood (Auto) Negative (Negative) Urine Nitrite Negative (Negative) Urine Bilirubin (Auto) Negative (Negative) Urine Urobilinogen (Auto) Normal mg/dL (Normal) Urine Leukocyte Esterase (Auto) Negative (Negative) Urine RBC 0 /HPF (0-2) Urine WBC Occ /HPF (0-4) Urine Squamous Epithelial Cells Few /LPF Urine Bacteria 0 /HPF (0-FEW) Urine Mucus Slight /LPF Influenza Type A Antigen Positive (NEGATIVE) Influenza Type B Antigen Negative (NEGATIVE) SARS-CoV-2 Antigen (Rapid) Negative (NEGATIVE) Test 08/06/21 07:40 08/06/21 11:32 White Blood Count 8.4 x10^3/uL (4.0-11.0) Red Blood Count 3.36 x10^6/uL (4.30-5.70) Hemoglobin 9.5 g/dL (13.0-17.5) Hematocrit 29.4 % (39.0-53.0) Mean Corpuscular Volume 88 fL (79-100) Mean Corpuscular Hemoglobin 28 pg (25-35) Mean Corpuscular Hemoglobin Concent 32 g/dL (31-37) Red Cell Distribution Width 15.9 % (11.5-14.5) Platelet Count 225 x10^3/uL (140-400) Neutrophils (%) (Auto) 85 % (31-73) Lymphocytes (%) (Auto) 8 % (24-48) Monocytes (%) (Auto) 6 % (0-9) Eosinophils (%) (Auto) 1 % (0-3) Basophils (%) (Auto) 0 % (0-3) Neutrophils # (Auto) 7.1 x10^3/uL (1.8-7.7) Lymphocytes # (Auto) 0.7 x10^3/uL (1.0-4.8) Monocytes # (Auto) 0.5 x10^3/uL (0.0-1.1) Eosinophils # (Auto) 0.1 x10^3/uL (0.0-0.7) Basophils # (Auto) 0.0 x10^3/uL (0.0-0.2) Sodium Level 139 mmol/L (136-145) Potassium Level 4.1 mmol/L (3.5-5.1) Chloride Level 104 mmol/L (98-107) Carbon Dioxide Level 28 mmol/L (21-32) Anion Gap 7 (6-14) Blood Urea Nitrogen 29 mg/dL (8-26) Creatinine 1.4 mg/dL (0.7-1.3) Estimated GFR (Cockcroft-Gault) 59.3 BUN/Creatinine Ratio 21 (6-20) Glucose Level 150 mg/dL (70-99) Calcium Level 8.7 mg/dL (8.5-10.1) Total Bilirubin 0.5 mg/dL (0.2-1.0) Aspartate Amino Transf (AST/SGOT) 13 U/L (15-37) Alanine Aminotransferase (ALT/SGPT) 12 U/L (16-63) Alkaline Phosphatase 68 U/L (46-116) Total Protein 6.8 g/dL (6.4-8.2) Albumin 3.2 g/dL (3.4-5.0) Albumin/Globulin Ratio 0.9 (1.0-1.7) Glucose (Fingerstick) 186 mg/dL (70-99) Images Images CT HEAD AND CERVICAL SPINE WITHOUT CONTRAST History: Reason: fall, RT SHOULDER FX / Spl. Instructions: / History: Comparison: None. Procedure: Axial images are obtained of the head from the skull base through the vertex without IV contrast. Noncontrast helical CT of the cervical spine was performed. Axial, sagittal, and coronal reconstructions were obtained. Findings: The ventricles and sulci are prominent, consistent with generalized cerebral atrophy. There is minimal periventricular white matter hypoattenuation. This is a nonspecific finding but is commonly due to chronic small vessel ischemic disease in a patient of this age. 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 No mass-effect, midline shift, hemorrhage or obvious acute infarction is identified. Basilar cisterns are patent. Bone windows demonstrate no significant calvarial abnormality. The visualized paranasal sinuses are clear. Mastoid air cells are well aerated. There is no evidence of acute fracture or acute malalignment of the cervical spine. There is facet joints are hypertrophic but intact. There is disc space narrowing and degenerative endplate changes of the cervical spine. There is minimal grade 1 retrolisthesis of C5 on C6. The alignment is otherwise maintained. Mild motion artifact degrades image quality. There is mild pannus posterior to the odontoid. There are bilateral carotid artery calcifications. There is emphysema in the left lung apex. The right lung apex is not imaged. IMPRESSION: 1. No acute intracranial abnormality. 2. No acute fracture of the cervical spine. Assessment/Plan Assessment/Plan Impression: Mechanical fall, no evidence that he had a stroke or seizure Right hip and shoulder fracture Mental status is altered, he is receiving narcotics. Recommendations: Okay neurologically for surgery Will keep in mind the possibility of obtaining a follow-up head CT or brain MRI depending on his course I left a message with the patient's . Thank you for letting me help with the patient's care. PATO BROWN MD Aug 06, 2021 14:12
[2021-08-06 15:00] VITALS: BP 139/77
--- NOTE | 2021-08-06 15:28 | NUR ---
SS following for discharge planning. SS reviewed pt chart and discussed with pt RN. Pt is from home with spouse and is currently requiring oxygen at two to three liters nasal canula. COVID19 negative. Cardiology, Ortho, and Neurology following. ECHO today. Surgery tomorrow for right hip. PT/OT when medically ready to participate. SS will continue to follow for discharge planning .
[2021-08-06 19:00] VITALS: BP 138/75
[2021-08-06] MEDS: ATORVASTATIN CALCIUM 20 MG TABLET PO SCH (21:00)
[2021-08-06] MEDS: TAMSULOSIN 0.4 MG CAP.ER.24H. PO SCH (21:00)
[2021-08-06 23:00] VITALS: BP 139/73
[2021-08-07] VITALS (21 sets, daily range): BP systolic 82–224; BP diastolic 36–88
[2021-08-07 05:59] LABS: CALCIUM 8.6 mg/dL (8.5-10.1); CREATININE 1.7 mg/dL (0.7-1.3); GFR 47.4
[2021-08-07] MEDS ORDERED: PROCHLORPERAZINE 10 MG/2 ML VIAL. IVP PRN ×2 (06:00→09:15)
[2021-08-07] MEDS ORDERED: MORPHINE SULFATE 2 MG/ML INJ. IVP PRN ×2 (06:00→09:15)
[2021-08-07] MEDS ORDERED: IV RINGERS,LACTATED 1000ML 1,000 ML IV SCH ×2 (06:00→09:15)
[2021-08-07] MEDS ORDERED: HYDROmorphone 2 MG/ML INJ. IVP PRN ×2 (06:00→09:15)
[2021-08-07] MEDS ORDERED: fentaNYL PF VIAL 100 MCG/2 ML VIAL IVP PRN ×4 (06:00→09:15)
[2021-08-07] MEDS: POTASSIUM CL 20MEQ D5-0.9%NACL 1,000 ML IV SCH (06:00)
[2021-08-07 06:04] LABS: POTASSIUM 5.2 mmol/L (3.5-5.1)
[2021-08-07] MEDS: IPRATRPIUM/ALBUTEROL 0.5/2.5MG 3 ML NEBU. NEB SCH ×4 (07:44→20:33)
[2021-08-07] MEDS: metFORMIN 500 MG TABLET PO SCH ×2 (08:00→15:43)
[2021-08-07] MEDS: INSULIN LISPRO 300 UNITS/3 ML VIAL. SQ SCH ×4 (08:00→23:44)
[2021-08-07] MEDS: ISOSORBIDE MONONITRATE ER 30 MG TAB.ER.24H PO SCH (08:21)
[2021-08-07] MEDS: SERTRALINE 50 MG TABLET. PO SCH (08:22)
[2021-08-07] MEDS: OSELTAMIVIR 30 MG CAPSULE PO SCH ×2 (08:22→20:18)
[2021-08-07] MEDS ORDERED: PROPOFOL 10 MG/ML (20ML) VIAL. IV ONE (08:50)
[2021-08-07] MEDS ORDERED: ROCURONIUM 50 MG/5 ML VIAL. ONE (08:51)
[2021-08-07] MEDS ORDERED: fentaNYL PF VIAL 100 MCG/2 ML VIAL ONE (08:54)
[2021-08-07] MEDS ORDERED: DEXAMETHASONE SOD PHOS 4 MG/ML VIAL ONE (08:54)
[2021-08-07] MEDS ORDERED: ONDANSETRON PF 4 MG/2 ML VIAL. ONE (08:54)
[2021-08-07] MEDS ORDERED: CYANOCOBALAMIN (VITAMIN B-12) 1,000 MCG/ML VIAL. IM SCH (09:00)
[2021-08-07] MEDS ORDERED: INSULIN LISPRO 100 UNIT/ML 3ML VIAL for OP,RR ONLY. SQ PRN (09:15)
--- NOTE | 2021-08-07 09:21 | PDOC ---
PROGRESS NOTES Date of Service: DATE: 08/07/21 TIME: 09:18 Subjective Subjective going for surgery now Objective Objective Vital Signs Date Time Temp Pulse Resp B/P (MAP) Pulse Ox O2 Delivery O2 Flow Rate FiO2 08/07/21 09:07 98.4 105 15 135/63 98 Nasal Cannula 3.0 98.4 Intake and Output 08/07/21 07:00 Intake Total 0 ml Output Total 1000 ml Balance -1000 ml Intake Oral 0 ml Output Urine Total 1000 ml # Bowel Movements 1 Physical Exam Abdomen: Soft, No tenderness Heart: Regular rate, Normal S1, Normal S2, No murmurs Extremities: No cyanosis, No edema General: Alert, Cooperative, mild distress, Other (disoriented to time) HEENT: Atraumatic, Other (dry oral mucosa) Lungs: Other (diffuse expiratory wheezing with mild tachypnea) MUSCULOSKELETAL: Osteoarthritic changes both hands, Other (right proximal humeral and right femoral neck fracture) Neuro: Normal speech, Sensation intact Psych/Mental Status: Other (flat affect) Skin: No rashes Diagnosis Problem List Problems Medical Problems: (1) Acute on chronic renal failure Status: Acute (2) Closed right hip fracture Status: Acute (3) Contusion of right knee Status: Acute (4) Fall Status: Acute (5) Shoulder fracture, right Status: Acute Assessment Assessment Problems Medical Problems: (1) Acute on chronic renal failure Status: Acute (2) Closed right hip fracture Status: Acute (3) Contusion of right knee Status: Acute (4) Fall Status: Acute (5) Shoulder fracture, right Status: Acute FINAL IMPRESSION: 1. Mechanical fall. 2. Possible syncopal episode. 3. Right shoulder fracture. 4. Right hip fracture. 5. Emphysema. 6. Coronary artery disease. 7. Benign prostatic hypertrophy. 8. Peripheral vascular disease, history of previous bypass surgery. 9. Influenza A. PLAN: surgery on hip today. cleared by cardiology and neurology cr 1.7.POt 4.1, cbc ok spoke with pts yesterday. At this time, the patient was admitted to the hospital, hydrated with IV fluids, so well start him on Tamiflu. Orthopedic is consulted for shoulder and hip fracture and also will consult Cardiology as well as Neurology to rule out any cardiac arrhythmias causing problems as well as possible cause for syncopal episode. Further recommendations to follow. Plan Plan of Care Problems Medical Problems: (1) Acute on chronic renal failure Status: Acute (2) Closed right hip fracture Status: Acute (3) Contusion of right knee Status: Acute (4) Fall Status: Acute (5) Shoulder fracture, right Status: Acute Comment Review of Relevant I have reviewed the following items valerie (where applicable) has been applied. Labs Laboratory Tests Test 08/06/21 11:32 08/06/21 17:09 08/06/21 20:51 08/07/21 04:40 Glucose (Fingerstick) 186 mg/dL (70-99) 184 mg/dL (70-99) 186 mg/dL (70-99) Sodium Level 141 mmol/L (136-145) Potassium Level 5.2 mmol/L (3.5-5.1) Chloride Level 108 mmol/L (98-107) Carbon Dioxide Level 21 mmol/L (21-32) Anion Gap 12 (6-14) Blood Urea Nitrogen 31 mg/dL (8-26) Creatinine 1.7 mg/dL (0.7-1.3) Estimated GFR (Cockcroft-Gault) 47.4 Glucose Level 272 mg/dL (70-99) Calcium Level 8.6 mg/dL (8.5-10.1) Test 08/07/21 08:25 Glucose (Fingerstick) 240 mg/dL (70-99) Medications Current Medications Albuterol/ Ipratropium (Duoneb) 3 ml RTQID NEB Last administered on 08/07/21at 07:44; Start 08/06/21 at 12:00 Atorvastatin Calcium (Lipitor) 20 mg HS PO ; Start 08/06/21 at 21:00 Cefazolin Sodium/ Dextrose 50 ml @ 100 mls/hr 1X ONCE IV ; Start 08/07/21 at 06:00; Stop 08/07/21 at 06:29; Status DC Cefazolin Sodium/ Dextrose 50 ml @ As Directed STK-MED ONCE IV ; Start 08/07/21 at 09:10; Stop 08/07/21 at 09:10; Status DC Cyanocobalamin (Vitamin B-12 Inj) 1,000 mcg WEEKLY IM ; Start 08/07/21 at 09:00 Dexamethasone Sodium Phosphate (Decadron) 4 mg STK-MED ONCE .ROUTE ; Start 08/07/21 at 08:54; Stop 08/07/21 at 08:54; Status DC Fentanyl Citrate (Fentanyl 2ml Vial) 25 mcg PRN Q5MIN PRN IVP MILD PAIN 1-3; Start 08/07/21 at 06:00; Stop 08/08/21 at 05:59 Fentanyl Citrate (Fentanyl 2ml Vial) 25 mcg PRN Q5MIN PRN IVP MILD PAIN 1-3; Start 08/07/21 at 09:15; Stop 08/08/21 at 09:14 Fentanyl Citrate (Fentanyl 2ml Vial) 50 mcg PRN Q5MIN PRN IVP MODERATE PAIN 4- 6; Start 08/07/21 at 06:00; Stop 08/08/21 at 05:59 Fentanyl Citrate (Fentanyl 2ml Vial) 50 mcg PRN Q5MIN PRN IVP MODERATE PAIN 4- 6; Start 08/07/21 at 09:15; Stop 08/08/21 at 09:14 Fentanyl Citrate (Fentanyl 2ml Vial) 100 mcg STK-MED ONCE .ROUTE ; Start 08/07/21 at 08:54; Stop 08/07/21 at 08:54; Status DC Hydromorphone HCl (Dilaudid) 0.5 mg PRN Q10MIN PRN IVP SEVERE PAIN 7-10, 2nd CHOICE; Start 08/07/21 at 06:00; Stop 08/08/21 at 05:59 Hydromorphone HCl (Dilaudid) 0.5 mg PRN Q10MIN PRN IVP SEVERE PAIN 7-10, 2nd CHOICE; Start 08/07/21 at 09:15; Stop 08/08/21 at 09:14 Insulin Human Lispro (HumaLOG VIAL for OP,RR ONLY) 0-10 units PRN Q1HR PRN SQ PER PROTOCOL; Start 08/07/21 at 09:15; Stop 08/08/21 at 09:14 Insulin Human Lispro (HumaLOG) 0-5 UNITS TIDWMEALS SQ ; Start 08/06/21 at 12:00 Morphine Sulfate (Morphine Sulfate) 1 mg PRN Q10MIN PRN IVP SEVERE PAIN 7-10; Start 08/07/21 at 06:00; Stop 08/08/21 at 05:59 Morphine Sulfate (Morphine Sulfate) 1 mg PRN Q10MIN PRN IVP SEVERE PAIN 7-10; Start 08/07/21 at 09:15; Stop 08/08/21 at 09:14 Ondansetron HCl (Zofran) 4 mg STK-MED ONCE .ROUTE ; Start 08/07/21 at 08:54; Stop 08/07/21 at 08:54; Status DC Potassium Chloride/Dextrose/ Sod Cl 1,000 ml @ 100 mls/hr Q10H IV Last administered on 08/07/21at 06:00; Start 08/06/21 at 10:00 Prochlorperazine Edisylate (Compazine) 5 mg PACU PRN PRN IVP NAUSEA, MRX1; Start 08/07/21 at 06:00; Stop 08/08/21 at 05:59 Prochlorperazine Edisylate (Compazine) 5 mg PACU PRN PRN IVP NAUSEA, MRX1; Start 08/07/21 at 09:15; Stop 08/08/21 at 09:14 Propofol (Diprivan) 200 mg STK-MED ONCE IV ; Start 08/07/21 at 08:50; Stop 08/07/21 at 08:51; Status DC Ringer's Solution 1,000 ml @ 30 mls/hr Q24H IV ; Start 08/07/21 at 06:00; Stop 08/07/21 at 17:59 Ringer's Solution 1,000 ml @ 30 mls/hr Q24H IV ; Start 08/07/21 at 09:15; Stop 08/07/21 at 21:14 Rocuronium [place] (Zemuron) 50 mg STK-MED ONCE .ROUTE ; Start 08/07/21 at 08:51; Stop 08/07/21 at 08:51; Status DC Tamsulosin HCl (Flomax) 0.4 mg QHS PO ; Start 08/06/21 at 21:00 Vitals/I & O Vital Sign - Last 24 Hours 08/06/21 08/06/21 08/06/21 08/06/21 10:43 11:38 15:00 15:35 Temp 98.5 98.3 98.5 98.3 Pulse 96 90 Resp 22 22 B/P (MAP) 145/74 (97) 139/77 (97) Pulse Ox 89 94 91 96 O2 Delivery Nasal Cannula Nasal Cannula O2 Flow Rate 3.0 3.0 08/06/21 08/06/21 08/06/2108/06/22 19:00 20:19 21:50 23:00 Temp 98.2 99.1 98.2 99.1 Pulse 66 113 Resp B/P (MAP) 138/75 (96) 139/73 (95) Pulse Ox 93 96 90 O2 Delivery Nasal Cannula Nasal Cannula Nasal Cannula Nasal Cannula O2 Flow Rate 3.0 3.0 3.0 3.0 08/07/21 08/07/21 08/07/21 08/07/21 03:00 07:00 07:44 08:00 Temp 97.5 98.4 97.5 98.4 Pulse 123 117 Resp 22 B/P (MAP) 106/54 (71) 138/69 (92) Pulse Ox 90 92 O2 Delivery Nasal Cannula Nasal Cannula Nasal Cannula O2 Flow Rate 3.0 3.0 3.0 08/07/21 09:07 Temp 98.4 98.4 Pulse 105 Resp 15 B/P (MAP) 135/63 Pulse Ox 98 O2 Delivery Nasal Cannula O2 Flow Rate 3.0 Intake and Output 08/06/21 08/06/21 08/07/21 15:00 23:00 07:00 Intake Total 0 ml Output Total 150 ml 550 ml 300 ml Balance -150 ml -550 ml -300 ml Justifications for Admission Other Justification SLADE LOERA MD Aug 07, 2021 09:20
[2021-08-07] MEDS ORDERED: TRANEXAMIC ACID in NS IVPB 100 ML ONE (09:35)
[2021-08-07] MEDS ORDERED: SUGAMMADEX SODIUM 200 MG/2 ML VIAL. IVP ONE (09:45)
[2021-08-07] MEDS ORDERED: IV NORMAL SALINE 1000ML BAG 1,000 ML IV SCH (09:45)
[2021-08-07] MEDS ORDERED: TV=62ml MORPHINE 5 MG, KETOROLAC 30 MG, ROPIV, EPI INT ART ONE (10:00)
--- NOTE | 2021-08-07 10:44 | NUR ---
SS following up with discharge planning. SS reviewed pt chart and discussed with pt RN. Pt is currently requiring oxygen at three liters nasal canula. COVID19 negative. Cardiology, Neurology, and Ortho following. Pt had hip surgery today. Pt transferred to ICU bed 108. SS will continue to follow for discharge planning.
--- NOTE | 2021-08-07 10:52 | CARD ---
MR#: [id number] Date of Study: 08/06/2021 Ordering Physician: SHIVA JEREZ, Referring Physician: SHIVA JEREZ, Tech: APPROVED REPORT EXAM: Two-dimensional and M-mode echocardiogram with Doppler and color Doppler. Other Information Technically limited study due to body habitus. INDICATION Hypertension/HCVD Cardiomyopathy DM, COPD, 2D DIMENSIONS IVSd1.2 (0.7-1.1cm)LVDd2.9 (3.9-5.9cm) PWd1.4 (0.7-1.1cm)LVDs1.6 (2.5-4.0cm) FS (%) 45.5 %SV25.0 ml LVEF(%)78.5 (>50%) Aortic Valve AoV Peak Tejas.160.6cm/Gabino Peak GR.10.3mmHg Mitral Valve MV E Ugvyqwbn48.0cm/sMV DECEL [id number] MV A Jrknjgor52.4cm/sE/A Ratio2.3 Pulmonary Valve PV Peak Tqoiwxjm039.6cm/s Tricuspid Valve TR P. [id number]/sTR Peak Gr.52mmHg LEFT VENTRICLE The left ventricle is normal size. There is mild to moderate concentric left ventricular hypertrophy. The left ventricular systolic function is normal and the ejection fraction is within normal range. E F 55% There is grossly normal LV segmental wall motion on limited images. No left ventricle thrombus noted on this study. There is no ventricular septal defect visualized. There is no left ventricular a neurysm. There is no mass noted in the left ventricle. RIGHT VENTRICLE The right ventricle is normal size. There is normal right ventricular wall thickness. The right ventr icular systolic function is normal. ATRIA The left atrium size is normal. The right atrium size is normal. The interatrial septum is intact wit h no evidence for an atrial septal defect or patent foramen ovale as noted on 2-D or Doppler imaging. AORTIC VALVE The aortic valve is moderately calcified. Doppler and Color Flow revealed no significant aortic regur gitation. There is no significant aortic valvular stenosis. There is no aortic valvular vegetation. MITRAL VALVE The mitral valve is normal in structure and function. There is no evidence of mitral valve prolapse. There is no mitral valve stenosis. Doppler and Color Flow revealed no mitral valve regurgitation note d. TRICUSPID VALVE The tricuspid valve is normal in structure and function. Doppler and Color Flow revealed moderate tri cuspid regurgitation. The pulmonary artery systolic pressure is estimated at 50-60 mmHg. There is no tricuspid valve prolapse or vegetation. There is no tricuspid valve stenosis. GREAT VESSELS The aortic root is normal in size. The ascending aorta is normal in size. The IVC is normal in size a nd collapses <50% with inspiration. PERICARDIAL EFFUSION There is no evidence of significant pericardial effusion. Critical Notification Critical Value: No <Conclusion> The left ventricular systolic function is normal and the ejection fraction is within normal range. EF 55% There is grossly normal LV segmental wall motion on limited images. Doppler and Color Flow revealed moderate tricuspid regurgitation. The pulmonary artery systolic press ure is estimated at 50-60 mmHg. Technically very difficult study. Signed by : Tank Lehman, Electronically Approved : 08/07/2021 10:52:30
--- NOTE | 2021-08-07 11:09 | PDOC4 ---
OPERATIVE NOTE Date: Date: Aug 07, 2021 Pre-Op Diagnosis: Subcapital fracture right hip Post-Op Diagnosis: Same Procedure Performed: Right hip hemiarthroplasty Surgeon: Rubi Anesthesia Type: General Blood Loss: 100 cc Specimans Obtained: Femoral head Findings: See dictation Complications: None JERONIMO MACE Jr. DO Aug 07, 2021 11:09
[2021-08-07] MEDS ORDERED: PHENYLEPHRINE 10 MG/ML VIAL. ONE (11:13)
[2021-08-07] MEDS ORDERED: PHENYLEPHRINE in 0.9% NACL PF 1 MG/10 ML SYRINGE. IV ONE (11:13)
[2021-08-07] MEDS ORDERED: ALBUMIN HUMAN 5% 500 ML IV ONE (11:13)
--- NOTE | 2021-08-07 11:14 | PDOC2 ---
CONSULT Date of Consult Date of Consult DATE: 08/06/21 TIME: 11:10 Reason for Consult Reason for Consult: Right shoulder pain right hip pain status post fall. Patient was admitted to the hospital following this fall for a subcapital fracture of the right hip as well as a very comminuted fracture of the right humerus pain control and inability to ambulate. Identification/Chief Complaint Chief Complaint Patient is a 80-year-old [id number] male who sustained a fall prior to his admission to the hospital on 2021 he was noted to be extremely painful unable he is unable to ambulate therefore he was brought to the emergency department where x-rays were obtained following that CT scan was obtained of the pelvis at that point that did reveal a displaced subcapital f racture of the right hip as well as a comminuted fracture of the right proximal humerus and he was admitted to the hospital. Problems: (1) Hyponatremia (2) Otitis externa of left ear (3) Type 2 diabetes mellitus with hyperosmolar nonketotic hyperglycemia (4) CAD (coronary artery disease) (5) Shoulder fracture, right (6) COPD exacerbation (7) MALNUTRITION MILD DEGREE (8) Anemia (9) Acute respiratory failure (10) Fall (11) Closed right hip fracture (12) Contusion of right knee (13) Community acquired pneumonia (14) Enteritis (15) Dehydration (16) Acute on chronic diastolic CHF (congestive heart failure) (17) UTI (urinary tract infection) (18) Diverticulosis (19) Gastritis Past Medical History Cardiovascular: CAD, HTN, Other (Peripheral vascular disease) Pulmonary: COPD GI: Other Heme/Onc: Anemia NOS Hepatobiliary: No pertinent hx Psych: No pertinent hx Musculoskeletal: Osteoarthritis Rheumatologic: No pertinent hx Infectious disease: Other Renal/: Benign prostatic enlarg. Endocrine: Diabetes Past Surgical History Past Surgical History: Other (Left lower lobectomy, bypass to the right leg., right first, second, fourth toes amputated.) Family History Family History: Hypertension Social History <1 pack per day ALCOHOL: none Drugs: None Lives: with Family Current Problem List Problem List Problems Medical Problems: (1) Acute on chronic renal failure Status: Acute (2) Closed right hip fracture Status: Acute (3) Contusion of right knee Status: Acute (4) Fall Status: Acute (5) Shoulder fracture, right Status: Acute Current Medications Current Medications Current Medications Morphine Sulfate (Morphine Sulfate) 4 mg PRN Q15MIN PRN IV/SQ PAIN GREATER THAN 3/10 Last administered on 08/05/21at 22:48; Start 08/05/21 at 17:15; Stop 08/06/21 at 17:14; Status DC Ondansetron HCl (Zofran) 4 mg PRN Q8HRS PRN IVP NAUSEA/VOMITING; Start 08/05/21 at 22:30; Stop 08/06/21 at 22:29; Status DC Morphine Sulfate (Morphine Sulfate) 4 mg PRN Q2HR PRN IVP PAIN Last administered on 08/06/21at 13:45; Start 08/05/21 at 22:30; Stop 08/06/21 at 22:29; Status DC Oseltamivir Phosphate (Tamiflu) 30 mg BID PO ; Start 08/06/21 at 09:00; Stop 08/11/21 at 08:59 Amlodipine Besylate (Norvasc) 5 mg DAILY PO ; Start 08/06/21 at 09:00 Atorvastatin Calcium (Lipitor) 20 mg HS PO ; Start 08/06/21 at 21:00 Azithromycin (Zithromax) 250 mg BID PO ; Start 08/06/21 at 09:00; Status UNV Furosemide (Lasix) 40 mg DAILY PO ; Start 08/06/21 at 09:00; Stop 08/06/21 at 09:11; Status DC Metformin HCl (Glucophage) 500 mg BIDWMEALS PO ; Start 08/06/21 at 08:00 Sertraline HCl (Zoloft) 50 mg DAILY PO ; Start 08/06/21 at 09:00 Tamsulosin HCl (Flomax) 0.4 mg QHS PO ; Start 08/06/21 at 21:00 Cyanocobalamin (Vitamin B-12 Inj) 1,000 mcg WEEKLY IM ; Start 08/07/21 at 09:00 Isosorbide Mononitrate (Imdur) 120 mg DAILY PO ; Start 08/06/21 at 09:00 Fentanyl Citrate (Fentanyl 2ml Vial) 25 mcg PRN Q5MIN PRN IVP MILD PAIN 1-3; Start 08/07/21 at 06:00; Stop 08/08/21 at 05:59 Fentanyl Citrate (Fentanyl 2ml Vial) 50 mcg PRN Q5MIN PRN IVP MODERATE PAIN 4- 6; Start 08/07/21 at 06:00; Stop 08/08/21 at 05:59 Morphine Sulfate (Morphine Sulfate) 1 mg PRN Q10MIN PRN IVP SEVERE PAIN 7-10; Start 08/07/21 at 06:00; Stop 08/08/21 at 05:59 Ringer's Solution 1,000 ml @ 30 mls/hr Q24H IV ; Start 08/07/21 at 06:00; Stop 08/07/21 at 17:59 Hydromorphone HCl (Dilaudid) 0.5 mg PRN Q10MIN PRN IVP SEVERE PAIN 7-10, 2nd CHOICE; Start 08/07/21 at 06:00; Stop 08/08/21 at 05:59 Prochlorperazine Edisylate (Compazine) 5 mg PACU PRN PRN IVP NAUSEA, MRX1; Start 08/07/21 at 06:00; Stop 08/08/21 at 05:59 Potassium Chloride/Dextrose/ Sod Cl 1,000 ml @ 100 mls/hr Q10H IV Last administered on 08/07/21at 06:00; Start 08/06/21 at 10:00 Albuterol/ Ipratropium (Duoneb) 3 ml 1X ONCE NEB ; Start 08/06/21 at 09:15; Stop 08/06/21 at 09:16; Status DC Albuterol/ Ipratropium (Duoneb) 3 ml RTQID NEB Last administered on 08/07/21at 07:44; Start 08/06/21 at 12:00 Insulin Human Lispro (HumaLOG) 0-5 UNITS TIDWMEALS SQ ; Start 08/06/21 at 12:00 Dextrose (Dextrose 50%-Water Syringe) 12.5 gm PRN Q15MIN PRN IV SEE COMMENTS; Start 08/06/21 at 09:15 Dextrose (Iv Dextrose 5%) 250 ml PRN Q15MIN PRN IV SEE COMMENTS; Start 08/06/21 at 09:15 Cefazolin Sodium/ Dextrose 50 ml @ 100 mls/hr 1X ONCE IV ; Start 08/07/21 at 06:00; Stop 08/07/21 at 06:29; Status DC Propofol (Diprivan) 200 mg STK-MED ONCE IV ; Start 08/07/21 at 08:50; Stop 08/07/21 at 08:51; Status DC Rocuronium [place] (Zemuron) 50 mg STK-MED ONCE .ROUTE ; Start 08/07/21 at 08:51; Stop 08/07/21 at 08:51; Status DC Ondansetron HCl (Zofran) 4 mg STK-MED ONCE .ROUTE ; Start 08/07/21 at 08:54; Stop 08/07/21 at 08:54; Status DC Dexamethasone Sodium Phosphate (Decadron) 4 mg STK-MED ONCE .ROUTE ; Start 08/07/21 at 08:54; Stop 08/07/21 at 08:54; Status DC Fentanyl Citrate (Fentanyl 2ml Vial) 100 mcg STK-MED ONCE .ROUTE ; Start 08/07/21 at 08:54; Stop 08/07/21 at 08:54; Status DC Cefazolin Sodium/ Dextrose 50 ml @ As Directed STK-MED ONCE IV ; Start 08/07/21 at 09:10; Stop 08/07/21 at 09:10; Status DC Fentanyl Citrate (Fentanyl 2ml Vial) 25 mcg PRN Q5MIN PRN IVP MILD PAIN 1-3; Start 08/07/21 at 09:15; Stop 08/08/21 at 09:14 Fentanyl Citrate (Fentanyl 2ml Vial) 50 mcg PRN Q5MIN PRN IVP MODERATE PAIN 4- 6; Start 08/07/21 at 09:15; Stop 08/08/21 at 09:14 Morphine Sulfate (Morphine Sulfate) 1 mg PRN Q10MIN PRN IVP SEVERE PAIN 7-10; Start 08/07/21 at 09:15; Stop 08/08/21 at 09:14 Ringer's Solution 1,000 ml @ 30 mls/hr Q24H IV ; Start 08/07/21 at 09:15; Stop 08/07/21 at 21:14 Hydromorphone HCl (Dilaudid) 0.5 mg PRN Q10MIN PRN IVP SEVERE PAIN 7-10, 2nd CHOICE; Start 08/07/21 at 09:15; Stop 08/08/21 at 09:14 Prochlorperazine Edisylate (Compazine) 5 mg PACU PRN PRN IVP NAUSEA, MRX1; Start 08/07/21 at 09:15; Stop 08/08/21 at 09:14 Insulin Human Lispro (HumaLOG VIAL for OP,RR ONLY) 0-10 units PRN Q1HR PRN SQ PER PROTOCOL Last administered on 08/07/21at 09:27; Start 08/07/21 at 09:15; Stop 08/08/21 at 09:14 Sodium Chloride 1,000 ml @ 30 mls/hr Q24H IV ; Start 08/07/21 at 09:45 Sugammadex Sodium ([place]) 200 mg 1X ONCE IVP ; Start 08/07/21 at 09:45; Stop 08/07/21 at 09:46; Status DC Tranexamic Acid 100 ml @ As Directed STK-MED ONCE .ROUTE Last administered on 08/07/21at 09:52; Start 08/07/21 at 09:35; Stop 08/07/21 at 09:35; Status DC Morphine Sulfate 5 mg/Ketorolac Tromethamine 30 mg/Ropivacaine 60 ml/Epinephrine HCl 0.5 mg/ Miscellaneous 63 ml @ 63 mls/hr 1X PERIOP ONCE INT ART Last administered on 08/07/21at 10:00; Start 08/07/21 at 10:00; Stop 08/07/21 at 10:59; Status DC Active Scripts Active Azithromycin Tablet (Azithromycin) 250 Mg Tablet 1 Pkg PO UD 5 Days 2 the first day followed by 1 for days 2-5 Sertraline Hcl 50 Mg Tablet 50 Mg PO DAILY 30 Days Amlodipine Besylate 5 Mg Tablet 5 Mg PO DAILY 30 Days Lasix (Furosemide) 40 Mg Tablet 1 Tab PO DAILY Reported Cyanocobalamin Injection (Cyanocobalamin (Vitamin B-12)) 1,000 Mcg/1 Ml Vial 1 Ml IM WEEKLY Isosorbide Mononitrate Er (Isosorbide Mononitrate) 60 Mg Tab.er.24h 2 Tab PO DAILY Flomax (Tamsulosin Hcl) 0.4 Mg Cap.er.24h 0.4 Mg PO QHS Metformin Hcl Er (Metformin Hcl) 500 Mg Tab.er.24h 500 Mg PO BID 15 Days Atorvastatin Calcium 20 Mg Tablet 1 Tab PO HS Allergies Allergies: Coded Allergies: lisinopril (Verified Allergy, Severe, Anaphylaxis, 08/05/21) Emergent Intubation 07/12/16. Physical Exam Physical Exam This is a limited exam due to the known fractures however the logrolling of the hip revealed significant and severe pain therefore this was limited there is pain with palpation of that area but there is no pain with palpation of the knee ankle or foot the vascular status has a +1 pulses good capillary refill but sensation is a stocking glove distribution absence. The examination of the right upper extremity distal neuro vas status appears to be intact however again severe pain with any type of range of motion therefore this was a limited exam in regard to that. Vitals VITALS Vital Signs Date Time Temp Pulse Resp B/P (MAP) Pulse Ox O2 Delivery O2 Flow Rate FiO2 08/07/21 09:07 98.4 105 15 135/63 98 Nasal Cannula 3.0 98.4 Labs Labs Laboratory Tests Test 08/05/21 17:55 08/05/21 21:30 08/05/21 23:50 08/06/21 00:00 White Blood Count 8.3 x10^3/uL (4.0-11.0) Red Blood Count 3.36 x10^6/uL (4.30-5.70) Hemoglobin 9.4 g/dL (13.0-17.5) Hematocrit 29.8 % (39.0-53.0) Mean Corpuscular Volume 89 fL (79-100) Mean Corpuscular Hemoglobin 28 pg (25-35) Mean Corpuscular Hemoglobin Concent 32 g/dL (31-37) Red Cell Distribution Width 16.1 % (11.5-14.5) Platelet Count 244 x10^3/uL (140-400) Neutrophils (%) (Auto) 78 % (31-73) Lymphocytes (%) (Auto) 12 % (24-48) Monocytes (%) (Auto) 7 % (0-9) Eosinophils (%) (Auto) 3 % (0-3) Basophils (%) (Auto) 1 % (0-3) Neutrophils # (Auto) 6.4 x10^3/uL (1.8-7.7) Lymphocytes # (Auto) 1.0 x10^3/uL (1.0-4.8) Monocytes # (Auto) 0.6 x10^3/uL (0.0-1.1) Eosinophils # (Auto) 0.2 x10^3/uL (0.0-0.7) Basophils # (Auto) 0.0 x10^3/uL (0.0-0.2) Prothrombin Time 13.0 SEC (11.7-14.0) Prothromb Time International Ratio 1.0 (0.8-1.1) Activated Partial Thromboplast Time 32 SEC (24-38) Sodium Level 140 mmol/L (136-145) Potassium Level 4.6 mmol/L (3.5-5.1) Chloride Level 104 mmol/L (98-107) Carbon Dioxide Level 27 mmol/L (21-32) Anion Gap 9 (6-14) Blood Urea Nitrogen 30 mg/dL (8-26) Creatinine 1.5 mg/dL (0.7-1.3) Estimated GFR (Cockcroft-Gault) 54.8 BUN/Creatinine Ratio 20 (6-20) Glucose Level 136 mg/dL (70-99) Calcium Level 8.8 mg/dL (8.5-10.1) Magnesium Level 2.0 mg/dL (1.8-2.4) Total Bilirubin 0.2 mg/dL (0.2-1.0) Aspartate Amino Transf (AST/SGOT) 11 U/L (15-37) Alanine Aminotransferase (ALT/SGPT) 11 U/L (16-63) Alkaline Phosphatase 83 U/L (46-116) Troponin I High Sensitivity 6 ng/L (4-75) 9 ng/L (4-75) 9 ng/L (4-75) BS-Rlf-M-Type Natriuretic Peptide 235 pg/mL (0-449) Total Protein 6.6 g/dL (6.4-8.2) Albumin 3.5 g/dL (3.4-5.0) Albumin/Globulin Ratio 1.1 (1.0-1.7) Urine Collection Type Unknown Urine Color (Auto) Light yellow Urine Turbidity Clear Urine pH (Auto) 5.0 (<5.0-8.0) Urine Specific [place] 1.013 (1.000-1.030) Urine Protein (Auto) Negative mg/dL (Negative) Urine Glucose (Auto)(UA) Negative mg/dL (Negative) Urine Ketones (Auto) Negative mg/dL (Negative) Urine Blood (Auto) Negative (Negative) Urine Nitrite Negative (Negative) Urine Bilirubin (Auto) Negative (Negative) Urine Urobilinogen (Auto) Normal mg/dL (Normal) Urine Leukocyte Esterase (Auto) Negative (Negative) Urine RBC 0 /HPF (0-2) Urine WBC Occ /HPF (0-4) Urine Squamous Epithelial Cells Few /LPF Urine Bacteria 0 /HPF (0-FEW) Urine Mucus Slight /LPF Coronavirus (COVID-19)(PCR) Not detected (NOT DETECTD) Influenza Type A Antigen Positive (NEGATIVE) Influenza Type B Antigen Negative (NEGATIVE) SARS-CoV-2 Antigen (Rapid) Negative (NEGATIVE) Test 08/06/21 07:40 08/06/21 11:32 08/06/21 17:09 08/06/21 20:51 White Blood Count 8.4 x10^3/uL (4.0-11.0) Red Blood Count 3.36 x10^6/uL (4.30-5.70) Hemoglobin 9.5 g/dL (13.0-17.5) Hematocrit 29.4 % (39.0-53.0) Mean Corpuscular Volume 88 fL (79-100) Mean Corpuscular Hemoglobin 28 pg (25-35) Mean Corpuscular Hemoglobin Concent 32 g/dL (31-37) Red Cell Distribution Width 15.9 % (11.5-14.5) Platelet Count 225 x10^3/uL (140-400) Neutrophils (%) (Auto) 85 % (31-73) Lymphocytes (%) (Auto) 8 % (24-48) Monocytes (%) (Auto) 6 % (0-9) Eosinophils (%) (Auto) 1 % (0-3) Basophils (%) (Auto) 0 % (0-3) Neutrophils # (Auto) 7.1 x10^3/uL (1.8-7.7) Lymphocytes # (Auto) 0.7 x10^3/uL (1.0-4.8) Monocytes # (Auto) 0.5 x10^3/uL (0.0-1.1) Eosinophils # (Auto) 0.1 x10^3/uL (0.0-0.7) Basophils # (Auto) 0.0 x10^3/uL (0.0-0.2) Sodium Level 139 mmol/L (136-145) Potassium Level 4.1 mmol/L (3.5-5.1) Chloride Level 104 mmol/L (98-107) Carbon Dioxide Level 28 mmol/L (21-32) Anion Gap 7 (6-14) Blood Urea Nitrogen 29 mg/dL (8-26) Creatinine 1.4 mg/dL (0.7-1.3) Estimated GFR (Cockcroft-Gault) 59.3 BUN/Creatinine Ratio 21 (6-20) Glucose Level 150 mg/dL (70-99) Calcium Level 8.7 mg/dL (8.5-10.1) Total Bilirubin 0.5 mg/dL (0.2-1.0) Aspartate Amino Transf (AST/SGOT) 13 U/L (15-37) Alanine Aminotransferase (ALT/SGPT) 12 U/L (16-63) Alkaline Phosphatase 68 U/L (46-116) Total Protein 6.8 g/dL (6.4-8.2) Albumin 3.2 g/dL (3.4-5.0) Albumin/Globulin Ratio 0.9 (1.0-1.7) Glucose (Fingerstick) 186 mg/dL (70-99) 184 mg/dL (70-99) 186 mg/dL (70-99) Test 08/07/21 04:40 08/07/21 08:25 08/07/21 09:22 08/07/21 10:47 Sodium Level 141 mmol/L (136-145) Potassium Level 5.2 mmol/L (3.5-5.1) Chloride Level 108 mmol/L (98-107) Carbon Dioxide Level 21 mmol/L (21-32) Anion Gap 12 (6-14) Blood Urea Nitrogen 31 mg/dL (8-26) Creatinine 1.7 mg/dL (0.7-1.3) Estimated GFR (Cockcroft-Gault) 47.4 Glucose Level 272 mg/dL (70-99) Calcium Level 8.6 mg/dL (8.5-10.1) Glucose (Fingerstick) 240 mg/dL (70-99) 240 mg/dL (70-99) 194 mg/dL (70-99) Laboratory Tests Test 08/06/21 11:32 08/06/21 17:09 08/06/21 20:51 08/07/21 04:40 Glucose (Fingerstick) 186 mg/dL (70-99) 184 mg/dL (70-99) 186 mg/dL (70-99) Sodium Level 141 mmol/L (136-145) Potassium Level 5.2 mmol/L (3.5-5.1) Chloride Level 108 mmol/L (98-107) Carbon Dioxide Level 21 mmol/L (21-32) Anion Gap 12 (6-14) Blood Urea Nitrogen 31 mg/dL (8-26) Creatinine 1.7 mg/dL (0.7-1.3) Estimated GFR (Cockcroft-Gault) 47.4 Glucose Level 272 mg/dL (70-99) Calcium Level 8.6 mg/dL (8.5-10.1) Test 08/07/21 08:25 08/07/21 09:22 08/07/21 10:47 Glucose (Fingerstick) 240 mg/dL (70-99) 240 mg/dL (70-99) 194 mg/dL (70-99) Images Images X-rays show an abnormality of the right hip impacted versus displaced right hip fracture subcapital the CT scan did confirm that there is a displaced subcapital fracture of the right hip. There is also noted on the x-rays today very comminuted fracture displaced fracture of the right proximal humerus Assessment/Plan Assessment/Plan At this point we have gone over the risk complications as well as benefits and expectations of treatment and surgery with the patient currently the right shoulder has a secondary nature at this point. His hip is needs to be repaired we have talked with him about hemiarthroplasty we have gone over the risks and benefits of that in detail to him. He wishes to proceed obviously at this point. Once we get him medically cleared we will go ahead and proceed with a hip hemiarthroplasty. At that point we will make sure he is medically stable as he is not significantly stable at this point. He is a very high risk for surgery at this point. We will however talk with shoulder specialist about possible reverse arthroplasty pending discussion with him at length after we are healed from and/or healing from the hip fracture. JERONIMO MACE Jr. DO Aug 07, 2021 11:14
[2021-08-07 11:57] LABS: HEMATOCRIT 24.5 % (39.0-53.0); HEMOGLOBIN 7.8 g/dL (13.0-17.5); RED BLOOD COUNT 2.8 x10^6/uL (4.30-5.70); RED CELL DISTRIBUTION WIDTH 16.4 % (11.5-14.5); WHITE BLOOD COUNT 11.4 x10^3/uL (4.0-11.0)
[2021-08-07 12:02] LABS: BASE EXCESS ABG -8 mmol/L (-3-3); HCO3 ABG 20 mmol/L (21-28); PCO2 ABG 47 mmHg (35-46); PO2 ABG 112 mmHg (65-108); SAT O2 ABG 97 % (92-99)
[2021-08-07 12:04] LABS: FIO2 ABG 60
[2021-08-07] MEDS ORDERED: SODIUM BICARB ADULT 8.4% 50 MEQ/50 ML DISP.SYRIN. ONE (12:09)
[2021-08-07] MEDS ORDERED: ETOMIDATE 20 MG/10 ML VIAL. IV ONE ×2 (12:11→12:45)
[2021-08-07] MEDS ORDERED: POLYVINYL ALCOHOL 1.4% OPHTH SOLUTION 15ML BOTTLE. OU PRN (12:15)
[2021-08-07] MEDS ORDERED: ATROPINE 0.5 MG/5 ML DISP.SYRINGE. IV PRN (12:15)
[2021-08-07] MEDS ORDERED: IV NORMAL SALINE 500ML BAG 500 ML IV PRN (12:15)
--- NOTE | 2021-08-07 12:28 | OP ---
DATE OF SURGERY: 08/07/2021 PREOPERATIVE DIAGNOSES: Subcapital fracture, right hip; right humerus fracture. POSTOPERATIVE DIAGNOSES: Subcapital fracture, right hip; right humerus fracture. PROCEDURE: Right hip hemiarthroplasty. SURGEON: Manny Venegas Jr., DO ATHLETICS DIRECTOR: JOSE Doan ANESTHESIA: General. COMPLICATIONS: None. ESTIMATED BLOOD LOSS: 100 mL DESCRIPTION OF PROCEDURE: The patient was taken to the operative suite, given a general anesthetic. The patient was then placed in a lateral decubitus position on the operating room table. Bony prominences were well padded. The affected hip was upright. Following this, the right hip was then prepped and draped in a sterile fashion. After that, the incision was made through skin and subcutaneous tissues for an anterolateral approach to the hip. This was done very carefully down to the iliotibial band, superficial bleeding was coagulated at that point. The iliotibial band was in line with the skin incision. This was then retracted anteriorly and posteriorly. The gluteus medius inferior one-third to one-half was removed from its insertion site into the greater trochanter, reflected anteriorly and the capsule was opened up in an H fashion. This head was then subsequently dislocated, measured and noted to be a size 55 one fingerbreadth above the lesser trochanter, the neck was measured and then cut to the appropriate size. This was opened up with a slip box changer followed by the IM guide down the femur. Broaching began at size 0 and continued up to size 8. After that was noted to be satisfactory, the size 8 component was then placed in the femur. This was trialled using a -3 mm distance for the head with an outer diameter of 55 mm. This was relocated appropriately, was taken through range of motion. There was no excessive pistoning and full range of motion was noted without any instability whatsoever. This was manually dislocated using the bone hook and then all trials were removed from the femoral component and the actual components were impacted upon that area and noted to be very safe and very secured. The taper was noted to be secured enough to where we can go ahead and relocate the hip. This was indeed done so after there was noted to be no bone fragments within the acetabulum, which had been swept and irrigated and suctioned dry and then the capsule over this relocated. Hip was then reapproximated. Gluteus medius was reapproximated to its original position at that point. The iliotibial band was then closed in a running fashion, superficial tissues and skin was reapproximated. Sterile dressing was applied. The patient was then taken from the operative bed to the postoperative bed, taken to the PACU in stable condition. JACINTO DR: Mindy TID: [id number]
[2021-08-07] MEDS: MIDAZOLAM 100mg/100ml NS BAG 100 ML IV PRN (12:29)
[2021-08-07] MEDS ORDERED: SODIUM BICARB ADULT 8.4% 50 MEQ/50 ML DISP.SYRIN. IV ONE ×2 (12:45→15:45)
[2021-08-07] MEDS ORDERED: SUCCINYLCHOLINE 200 MG/10 ML VIAL. IV ONE (12:45)
--- NOTE | 2021-08-07 13:10 | RAD ---
AP chest. HISTORY: Endotracheal tube placement of G-tube placement AP view was taken of the chest. There is an endotracheal tube at the level the clavicles almost to th e aortic arch. There is pleural thickening or pleural effusion on the right. Oral gastric tube extend s into the stomach. Mild vascular congestion is possible. IMPRESSION: 1. Pleural thickening or effusion on the right without change. 2. Endotracheal tube just above the aortic arch. 3. OG tube in the stomach. 4. Mild vascular congestion. Electronically signed by: Jus Wood MD (08/07/2021 1:08 PM) [facility]
[2021-08-07 13:20] LABS: BASE EXCESS ABG -6 mmol/L (-3-3); HCO3 ABG 21 mmol/L (21-28); PCO2 ABG 45 mmHg (35-46); PO2 ABG 308 mmHg (65-108); SAT O2 ABG 99 % (92-99)
[2021-08-07 13:21] LABS: FIO2 ABG 100
--- NOTE | 2021-08-07 14:20 | NUR ---
Patient arrived on unit at 1138 accompanied by OR staff. Patient drowsy, does not verbalize. Patient was extubated in OR, came to ICU on a 10L simple mask, but was in distress, using abdominal muscles and pursed lip breathing with coarse lung sounds, but patient not oriented enough to cough. Anesthesia at bedside, stat ABG ordered and completed. Dr. Hill consulted, gave the order to intubate. Patient intubated at 1215 by anesthesia. Notified the patient's .
--- NOTE | 2021-08-07 18:48 | PDOC ---
CARDIOLOGY PROGRESS NOTE SUBJECTIVE: Patient has been moved from the fifth floor to the ICU after orthopedic surgery today due to persistent respiratory failure. He has a history of COPD. OBJECTIVE: Vital Signs/I&O: Vital Signs Date Time Temp Pulse Resp B/P (MAP) Pulse Ox O2 Delivery O2 Flow Rate FiO2 08/07/21 18:00 80 20 158/53 95 Ventilator 08/07/21 16:00 98.6 98.6 08/07/21 12:00 10.0 I & O 08/06/21 08/06/21 08/07/21 15:00 23:00 07:00 Intake Total 0 ml Output Total 150 ml 550 ml 300 ml Balance -150 ml -550 ml -300 ml Objective: The patient appeared well nourished and normally developed. Head exam is unremarkable. No scleral icterus or corneal arcus noted. Neck is without jugular venous distension, thyromegaly, or carotid bruits. Carotid upstrokes are brisk bilaterally. Lungs are clear to auscultation and percussion. Cardiac exam reveals the PMI to be normally sized and situated. Rhythm is regular. First and second heart sounds normal. No murmurs, rubs or gallops. Abdominal exam reveals normal bowel sounds, no masses, no organomegaly and no aortic enlargement. Extremities are nonedematous and both femoral and pedal pulses are normal. Msk: No traumua Neuro: No focal deficits CURRENT MEDICATIONS: Current Medications Medications (Trade) Dose Ordered Sig/Ann Marie Route PRN Reason Start Time Stop Time Status Last Admin Dose Admin Cefazolin Sodium/ Dextrose 50 ml @ 100 mls/hr 1X ONCE IV 08/07/21 06:00 08/07/21 06:29 DC 08/07/21 09:44 Insulin Human Lispro (HumaLOG VIAL for OP,RR ONLY) 0-10 units PRN Q1HR PRN SQ PER PROTOCOL 08/07/21 09:15 08/08/21 09:14 08/07/21 09:27 Tranexamic Acid 100 ml @ As Directed STK-MED ONCE .ROUTE 08/07/21 09:35 08/07/21 09:35 DC 08/07/21 09:52 Morphine Sulfate 5 mg/Ketorolac Tromethamine 30 mg/Ropivacaine 60 ml/Epinephrine HCl 0.5 mg/ Miscellaneous 63 ml @ 63 mls/hr 1X PERIOP ONCE INT ART 08/07/21 10:00 08/07/21 10:59 DC 08/07/21 10:00 Fentanyl Citrate 30 ml @ 2.5 mls/hr CONT PRN IV SEE PROTOCOL 08/07/21 12:15 08/07/21 12:30 Midazolam HCl 100 ml @ 1 mls/hr CONT PRN IV SEE PROTOCOL 08/07/21 12:15 08/07/21 12:29 Sodium Bicarbonate (Sodium Bicarb Adult 8.4% Syr) 50 meq 1X ONCE IV 08/07/21 12:45 08/07/21 12:46 DC 08/07/21 12:41 Etomidate (Amidate) 20 mg 1X ONCE IV 08/07/21 12:45 08/07/21 12:46 DC 08/07/21 12:42 Succinylcholine Chloride (Anectine) 200 mg 1X ONCE IV 08/07/21 12:45 08/07/21 12:46 DC 08/07/21 12:42 Sodium Bicarbonate (Sodium Bicarb Adult 8.4% Syr) 50 meq 1X ONCE IV 08/07/21 15:45 08/07/21 15:46 DC 08/07/21 16:02 DIAGNOSTIC TESTING: Labs: Laboratory Tests 08/07/21 04:40 08/07/21 11:45 Laboratory Tests Test 08/06/21 20:51 08/07/21 04:40 08/07/21 08:25 08/07/21 09:22 Glucose (Fingerstick) 186 mg/dL (70-99) H 240 mg/dL (70-99) H 240 mg/dL (70-99) H Sodium Level 141 mmol/L (136-145) Potassium Level 5.2 mmol/L (3.5-5.1) #H Chloride Level 108 mmol/L (98-107) H Carbon Dioxide Level 21 mmol/L (21-32) Anion Gap 12 (6-14) Blood Urea Nitrogen 31 mg/dL (8-26) H Creatinine 1.7 mg/dL (0.7-1.3) H Estimated GFR (Cockcroft-Gault) 47.4 Glucose Level 272 mg/dL (70-99) H Calcium Level 8.6 mg/dL (8.5-10.1) Test 08/07/21 10:47 08/07/21 11:45 08/07/21 11:48 08/07/21 11:55 Glucose (Fingerstick) 194 mg/dL (70-99) H 135 mg/dL (70-99) H White Blood Count 11.4 x10^3/uL (4.0-11.0) H Red Blood Count 2.80 x10^6/uL (4.30-5.70) L Hemoglobin 7.8 g/dL (13.0-17.5) L Hematocrit 24.5 % (39.0-53.0) L Mean Corpuscular Volume 88 fL (79-100) Mean Corpuscular Hemoglobin 28 pg (25-35) Mean Corpuscular Hemoglobin Concent 32 g/dL (31-37) Red Cell Distribution Width 16.4 % (11.5-14.5) H Platelet Count 177 x10^3/uL (140-400) O2 Saturation 97 % (92-99) Arterial Blood pH 7.23 (7.35-7.45) L Arterial Blood pCO2 at Patient Temp 47 mmHg (35-46) H Arterial Blood pO2 at Patient Temp 112 mmHg (65-108) H Arterial Blood HCO3 20 mmol/L (21-28) L Arterial Blood Base Excess -8 mmol/L (-3-3) L FiO2 60 Test 08/07/21 13:20 08/07/21 18:06 O2 Saturation 99 % (92-99) Arterial Blood pH 7.29 (7.35-7.45) L Arterial Blood pCO2 at Patient Temp 45 mmHg (35-46) Arterial Blood pO2 at Patient Temp 308 mmHg (65-108) H Arterial Blood HCO3 21 mmol/L (21-28) Arterial Blood Base Excess -6 mmol/L (-3-3) L FiO2 100 Glucose (Fingerstick) 146 mg/dL (70-99) H ASSESSMENT: 1. Traumatic mechanical fall 2. Right femoral neck and right proximal humeral fracture 3. AECOPD with continued tobacco use per PCP 4. Chronic diastolic CHF: compensated 5. Presyncope: no arrhythmias so far and no mention of hypoglycemic spell 6. HTN; controlled 6. 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 CKD3 8. DM2 9. Normocytic anemia 10. Flu A: per PCP 11. Hx of PAD with revascularization PLAN: 1. Echocardiogram at this admission is unremarkable 2. Patient's blood pressure and heart rate are fairly stable. 3. Continue ventilatory support and extubation plans per pulmonary team 4. No specific cardiovascular abnormalities noted. EKG and telemetry is unremarkable. Supportive care for now Justicifation of Admission Dx: Justifications for Admission: Justification of Admission Dx: Yes CLEO JUAREZ MD Aug 07, 2021 18:48
[2021-08-07] MEDS: ATORVASTATIN CALCIUM 20 MG TABLET PO SCH (20:17)
[2021-08-07] MEDS: TAMSULOSIN 0.4 MG CAP.ER.24H. PO SCH (20:18)
[2021-08-08] VITALS (25 sets, daily range): BP systolic 95–142; BP diastolic 40–69
[2021-08-08 05:09] LABS: BASO # 0.1 x10^3/uL (0.0-0.2); BASO % 1 % (0-3); EOS # 0.4 x10^3/uL (0.0-0.7); EOS % 5 % (0-3); HEMATOCRIT 22.6 % (39.0-53.0); HEMOGLOBIN 7.2 g/dL (13.0-17.5); LYMPH # 0.5 x10^3/uL (1.0-4.8); LYMPH % 8 % (24-48); MEAN CORPUSCULAR HEMOGLOBIN 28 pg (25-35); MEAN CORPUSCULAR HGB CONC 32 g/dL (31-37); MEAN CORPUSCULAR VOLUME 88 fL (79-100); MONO # 0.5 x10^3/uL (0.0-1.1); MONO % 7 % (0-9); NEUT # 5.3 x10^3/uL (1.8-7.7); NEUT % 79 % (31-73); PLATELET COUNT 127 x10^3/uL (140-400); RED BLOOD COUNT 2.56 x10^6/uL (4.30-5.70); RED CELL DISTRIBUTION WIDTH 16.6 % (11.5-14.5); WHITE BLOOD COUNT 6.7 x10^3/uL (4.0-11.0)
[2021-08-08 05:44] LABS: CALCIUM 8.2 mg/dL (8.5-10.1); CREATININE 2.1 mg/dL (0.7-1.3); GFR 37.1
[2021-08-08] MEDS: INSULIN LISPRO 300 UNITS/3 ML VIAL. SQ SCH (05:55)
[2021-08-08] MEDS: MIDAZOLAM 100mg/100ml NS BAG 100 ML IV PRN (07:33)
[2021-08-08 07:57] LABS: BASE EXCESS ABG -3 mmol/L (-3-3); HCO3 ABG 23 mmol/L (21-28); PCO2 ABG 43 mmHg (35-46); PO2 ABG 157 mmHg (65-108); SAT O2 ABG 99 % (92-99)
[2021-08-08] MEDS: metFORMIN 500 MG TABLET PO SCH ×2 (08:00→17:00)
[2021-08-08] MEDS: IPRATRPIUM/ALBUTEROL 0.5/2.5MG 3 ML NEBU. NEB SCH ×4 (08:02→20:01)
[2021-08-08] MEDS: OSELTAMIVIR 30 MG CAPSULE PO SCH ×2 (08:16→19:16)
[2021-08-08] MEDS: ISOSORBIDE MONONITRATE ER 30 MG TAB.ER.24H PO SCH (08:16)
[2021-08-08] MEDS: SERTRALINE 50 MG TABLET. PO SCH (08:17)
[2021-08-08 08:19] LABS: FIO2 ABG 60% on vent
--- NOTE | 2021-08-08 10:20 | PDOC ---
CARDIOLOGY PROGRESS NOTE SUBJECTIVE: No new events overnight. Patient is sedated but responsive OBJECTIVE: Vital Signs/I&O: Vital Signs Date Time Temp Pulse Resp B/P (MAP) Pulse Ox O2 Delivery O2 Flow Rate FiO2 08/08/21 09:49 24 Ventilator 08/08/21 09:00 98 130/46 40 08/08/21 08:00 99.8 99.8 08/07/21 22:17 10.0 I & O 08/07/21 08/07/21 08/08/21 15:00 23:00 07:00 Intake Total 2050 ml 29 ml 97 ml Output Total 100 ml 350 ml 400 ml Balance 1950 ml -321 ml -303 ml Objective: GEN.: No apparent distress. Sedated HEENT: Head is normocephalic, atraumatic NECK: Supple. LUNGS: Clear to auscultation. HEART: RRR, S1, S2 present. Peripheral pulses intact ABDOMEN: Soft, nontender. Positive bowel sounds. EXTREMITIES: Without any cyanosis. NEUROLOGIC: Sedated but no lateralizing signs PSYCHIATRIC: not assessed SKIN: No ulcerations CURRENT MEDICATIONS: Imdur 120mg daily Amlodipine 10mg daily Atorvastatin 20mg daily DIAGNOSTIC TESTING: Anemia and BASIM noted. Labs: Laboratory Tests 08/08/21 04:16 Laboratory Tests Test 08/07/21 10:47 08/07/21 11:45 08/07/21 11:48 08/07/21 11:55 Glucose (Fingerstick) 194 mg/dL (70-99) H 135 mg/dL (70-99) H White Blood Count 11.4 x10^3/uL (4.0-11.0) H Red Blood Count 2.80 x10^6/uL (4.30-5.70) L Hemoglobin 7.8 g/dL (13.0-17.5) L Hematocrit 24.5 % (39.0-53.0) L Mean Corpuscular Volume 88 fL (79-100) Mean Corpuscular Hemoglobin 28 pg (25-35) Mean Corpuscular Hemoglobin Concent 32 g/dL (31-37) Red Cell Distribution Width 16.4 % (11.5-14.5) H Platelet Count 177 x10^3/uL (140-400) O2 Saturation 97 % (92-99) Arterial Blood pH 7.23 (7.35-7.45) L Arterial Blood pCO2 at Patient Temp 47 mmHg (35-46) H Arterial Blood pO2 at Patient Temp 112 mmHg (65-108) H Arterial Blood HCO3 20 mmol/L (21-28) L Arterial Blood Base Excess -8 mmol/L (-3-3) L FiO2 60 Test 08/07/21 13:20 08/07/21 18:06 08/07/21 23:41 08/08/21 04:16 O2 Saturation 99 % (92-99) Arterial Blood pH 7.29 (7.35-7.45) L Arterial Blood pCO2 at Patient Temp 45 mmHg (35-46) Arterial Blood pO2 at Patient Temp 308 mmHg (65-108) H Arterial Blood HCO3 21 mmol/L (21-28) Arterial Blood Base Excess -6 mmol/L (-3-3) L FiO2 100 Glucose (Fingerstick) 146 mg/dL (70-99) H 117 mg/dL (70-99) H White Blood Count 6.7 x10^3/uL (4.0-11.0) Red Blood Count 2.56 x10^6/uL (4.30-5.70) L Hemoglobin 7.2 g/dL (13.0-17.5) L Hematocrit 22.6 % (39.0-53.0) L Mean Corpuscular Volume 88 fL (79-100) Mean Corpuscular Hemoglobin 28 pg (25-35) Mean Corpuscular Hemoglobin Concent 32 g/dL (31-37) Red Cell Distribution Width 16.6 % (11.5-14.5) H Platelet Count 127 x10^3/uL (140-400) L Neutrophils (%) (Auto) 79 % (31-73) H Lymphocytes (%) (Auto) 8 % (24-48) L Monocytes (%) (Auto) 7 % (0-9) Eosinophils (%) (Auto) 5 % (0-3) H Basophils (%) (Auto) 1 % (0-3) Neutrophils # (Auto) 5.3 x10^3/uL (1.8-7.7) Lymphocytes # (Auto) 0.5 x10^3/uL (1.0-4.8) L Monocytes # (Auto) 0.5 x10^3/uL (0.0-1.1) Eosinophils # (Auto) 0.4 x10^3/uL (0.0-0.7) Basophils # (Auto) 0.1 x10^3/uL (0.0-0.2) Sodium Level 147 mmol/L (136-145) H Potassium Level 5.0 mmol/L (3.5-5.1) Chloride Level 113 mmol/L (98-107) H Carbon Dioxide Level 23 mmol/L (21-32) Anion Gap 11 (6-14) Blood Urea Nitrogen 42 mg/dL (8-26) H Creatinine 2.1 mg/dL (0.7-1.3) H Estimated GFR (Cockcroft-Gault) 37.1 Glucose Level 154 mg/dL (70-99) H Calcium Level 8.2 mg/dL (8.5-10.1) L Test 08/08/21 08:00 O2 Saturation 99 % (92-99) Arterial Blood pH 7.34 (7.35-7.45) L Arterial Blood pCO2 at Patient Temp 43 mmHg (35-46) Arterial Blood pO2 at Patient Temp 157 mmHg (65-108) H Arterial Blood HCO3 23 mmol/L (21-28) Arterial Blood Base Excess -3 mmol/L (-3-3) FiO2 60% on vent ASSESSMENT: 1. Traumatic mechanical fall 2. Right femoral neck and right proximal humeral fracture 3. AECOPD with continued tobacco use per PCP 4. Chronic diastolic CHF: compensated 5. Presyncope: no arrhythmias so far and no mention of hypoglycemic spell 6. HTN; controlled 6. 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 CKD3 8. DM2 9. Normocytic anemia 10. Flu A: per PCP 11. Hx of PAD with revascularization PLAN: 1. Continue present medical therapy. Oxygen requirements have improved. No new CV issues. Maintaining SR and BP stable w/o pressors. 2. Extubation plans per pulmonary service. 3. No acute indication for anticoagulation or antiplatelet therapy from CV standpoint. We will follow along. Justicifation of Admission Dx: Justifications for Admission: Justification of Admission Dx: Yes CLEO JUAREZ MD Aug 08, 2021 10:20
--- NOTE | 2021-08-08 11:42 | CONS ---
DATE OF CONSULTATION: 08/08/2021 PULMONARY CONSULTATION ATTENDING PHYSICIAN: Dr. Gandhi. REASON FOR CONSULTATION: Respiratory failure. HISTORY OF PRESENT ILLNESS: The patient is a 80-year-old male who is known to us from his several admissions and many years of followup in the hospital. The patient has history of COPD. He has chronic hypoxic respiratory failure. He has other medical problems including diabetes, peripheral vascular disease, coronary artery disease and BPH. The patient was brought into the hospital after he fell. His x-ray of the shoulder revealed a fracture and also had right hip fracture. CT head was negative for bleed or stroke. He was seen by Orthopedic Surgery and underwent right hip hemiarthroplasty yesterday. The patient was brought into the ICU. He was having pursed lip breathing and appeared lethargic and in distress. Arterial blood gases obtained at that time showed a pH of 7.23, pCO2 of 47 and pO2 of 112. The followup showed a pH of 7.29, pCO2 of 45 and a pO2 of 308. Bicarb was 21. We opted to intubate the patient due to his increased work of breathing and lethargy. The patient has remained on assist control mode since then. Chest x-ray reviewed. He has mild vascular prominence. He has chronic right lower lobe pleural thickening. At present, he is hemodynamically stable. He is on assist control, FiO2 of 40%, tidal volume 500, rate of 20. His latest ABGs showed a pH of 7.34, pCO2 of 43, pO2 157 and a bicarb of 23. He likely has a component of metabolic acidosis. His COVID is negative. Influenza A was positive. I have been asked to see him for further evaluation. The patient is not on any vasopressors. He is sedated with Versed and fentanyl. PAST MEDICAL HISTORY: Significant for history of COPD, history of chronic respiratory failure, history of coronary artery disease, history of diabetes, peripheral vascular disease, hypertension and BPH. PAST SURGICAL HISTORY: Left lower lobectomy. He had a bypass to the right leg. Toe amputation. ALLERGIES: LISINOPRIL. FAMILY HISTORY: Noncontributory to lungs. SOCIAL HISTORY: Has long history of tobaccoism in the past. MEDICATIONS: Reviewed as listed in the MRAD. He is currently on DuoNeb. REVIEW OF SYSTEMS: Unable to obtain. PHYSICAL EXAMINATION: VITAL SIGNS: Reviewed. Afebrile, blood pressure stable. NECK: Supple. LUNGS: With diminished breath sounds. CARDIOVASCULAR: With a regular rate. ABDOMEN: Soft, obese. EXTREMITIES: With trace pitting edema. He has toe amputations. LABORATORY DATA: Reviewed. Sodium 147, potassium 5.0, BUN 42 and a creatinine of 2.1. INR 1.0. White cell count 6.7, hemoglobin 7.2 and platelets are 127. IMPRESSION: 1. Expected acute postoperative respiratory failure. Underlying contributing factors chronic obstructive pulmonary disease ,Influenza, metabolic acidosis and affect of anesthetics. 2. Status post fall and left hip fracture, status post arthroplasty. 3. Chronic kidney disease, with a component of acute kidney injury as well. 4. Postoperative anemia. No active bleeding. 5. Abnormal chest x-ray with mild vascular prominence and right lower lobe pleural thickening, which is chronic. 6. Previous echocardiogram with a normal ejection fraction. His recent echo from 08/06/2021 showed an EF of 55%. He had pulmonary artery systolic pressure of 50-60. 7. Relative metabolic acidosis. 8. Influenza A RECOMMENDATIONS: 1. We will discontinue Versed and assess mental status. Possible CPAP trial in the next 12-24 hours once he is fully awake. 2. Continue present bronchodilators. 3. The patient is influenza A positive. Continue with Tamiflu. 4. Follow orthopedic recommendations. 5. DVT prophylaxis per orthopedic recommendation. 6. Follow hemoglobin. Currently, anemic. 7. Renal recommendations. 8. Discussed with RN and Orthopedics and will follow along with you. Total critical care time [address]: Ramos TID: [id number] MTDD
--- NOTE | 2021-08-08 12:29 | PDOC ---
PROGRESS NOTES Date of Service: DATE: 08/08/21 TIME: 12:25 Subjective Subjective SEEN IN ICU,SEDATED ON VENT Objective Objective Vital Signs Date Time Temp Pulse Resp B/P (MAP) Pulse Ox O2 Delivery O2 Flow Rate FiO2 08/08/21 11:29 Ventilator 08/08/21 09:49 24 08/08/21 09:00 98 130/46 40 08/08/21 08:00 99.8 99.8 08/07/21 22:17 10.0 Intake and Output 08/08/21 06:59 Intake Total 2176 ml Output Total 850 ml Balance 1326 ml IV Total 2176 ml Output Urine Total 750 ml Estimated Blood Loss 100 ml Physical Exam Abdomen: Soft, No tenderness Heart: Regular rate, Normal S1, Normal S2, No murmurs Extremities: No cyanosis, No edema HEENT: Atraumatic, Other (dry oral mucosa) Lungs: Other (diffuse expiratory wheezing with mild tachypnea) MUSCULOSKELETAL: Osteoarthritic changes both hands Psych/Mental Status: Other Skin: No rashes Diagnosis Problem List Problems Medical Problems: (1) Acute on chronic renal failure Status: Acute (2) Closed right hip fracture Status: Acute (3) Contusion of right knee Status: Acute (4) Fall Status: Acute (5) Shoulder fracture, right Status: Acute Assessment Assessment Problems Medical Problems: (1) Acute on chronic renal failure Status: Acute (2) Closed right hip fracture Status: Acute (3) Contusion of right knee Status: Acute (4) Fall Status: Acute (5) Shoulder fracture, right Status: Acute FINAL IMPRESSION: 1. Mechanical fall. 2. Possible syncopal episode. 3. Right shoulder fracture. 4. Right hip fracture. 5. Emphysema. 6. Coronary artery disease. 7. Benign prostatic hypertrophy. 8. Peripheral vascular disease, history of previous bypass surgery. 9. Influenza A. PLAN:POD#1 Right hip hemiarthroplasty On vent sedated, pulmonary consulted cleared by cardiology and neurology cr 2.2 cbc hb 7.2 iv fluids bolus and maintenance. spoke with RN GI prophalaxis DVT prevention total time spent 26 mts Plan Plan of Care Problems Medical Problems: (1) Acute on chronic renal failure Status: Acute (2) Closed right hip fracture Status: Acute (3) Contusion of right knee Status: Acute (4) Fall Status: Acute (5) Shoulder fracture, right Status: Acute Comment Review of Relevant I have reviewed the following items valerie (where applicable) has been applied. Labs Laboratory Tests Test 08/07/21 13:20 08/07/21 18:06 08/07/21 23:41 08/08/21 04:16 O2 Saturation 99 % (92-99) Arterial Blood pH 7.29 (7.35-7.45) Arterial Blood pCO2 at Patient Temp 45 mmHg (35-46) Arterial Blood pO2 at Patient Temp 308 mmHg (65-108) Arterial Blood HCO3 21 mmol/L (21-28) Arterial Blood Base Excess -6 mmol/L (-3-3) FiO2 100 Glucose (Fingerstick) 146 mg/dL (70-99) 117 mg/dL (70-99) White Blood Count 6.7 x10^3/uL (4.0-11.0) Red Blood Count 2.56 x10^6/uL (4.30-5.70) Hemoglobin 7.2 g/dL (13.0-17.5) Hematocrit 22.6 % (39.0-53.0) Mean Corpuscular Volume 88 fL (79-100) Mean Corpuscular Hemoglobin 28 pg (25-35) Mean Corpuscular Hemoglobin Concent 32 g/dL (31-37) Red Cell Distribution Width 16.6 % (11.5-14.5) Platelet Count 127 x10^3/uL (140-400) Neutrophils (%) (Auto) 79 % (31-73) Lymphocytes (%) (Auto) 8 % (24-48) Monocytes (%) (Auto) 7 % (0-9) Eosinophils (%) (Auto) 5 % (0-3) Basophils (%) (Auto) 1 % (0-3) Neutrophils # (Auto) 5.3 x10^3/uL (1.8-7.7) Lymphocytes # (Auto) 0.5 x10^3/uL (1.0-4.8) Monocytes # (Auto) 0.5 x10^3/uL (0.0-1.1) Eosinophils # (Auto) 0.4 x10^3/uL (0.0-0.7) Basophils # (Auto) 0.1 x10^3/uL (0.0-0.2) Sodium Level 147 mmol/L (136-145) Potassium Level 5.0 mmol/L (3.5-5.1) Chloride Level 113 mmol/L (98-107) Carbon Dioxide Level 23 mmol/L (21-32) Anion Gap 11 (6-14) Blood Urea Nitrogen 42 mg/dL (8-26) Creatinine 2.1 mg/dL (0.7-1.3) Estimated GFR (Cockcroft-Gault) 37.1 Glucose Level 154 mg/dL (70-99) Calcium Level 8.2 mg/dL (8.5-10.1) Test 08/08/21 08:00 08/08/21 12:12 O2 Saturation 99 % (92-99) Arterial Blood pH 7.34 (7.35-7.45) Arterial Blood pCO2 at Patient Temp 43 mmHg (35-46) Arterial Blood pO2 at Patient Temp 157 mmHg (65-108) Arterial Blood HCO3 23 mmol/L (21-28) Arterial Blood Base Excess -3 mmol/L (-3-3) FiO2 60% on vent Glucose (Fingerstick) 153 mg/dL (70-99) Medications Current Medications Etomidate (Amidate) 20 mg 1X ONCE IV Last administered on 08/07/21at 12:42; Start 08/07/21 at 12:45; Stop 08/07/21 at 12:46; Status DC Insulin Human Lispro (HumaLOG) 0-5 UNITS Q6HRS SQ ; Start 08/07/21 at 18:00 Sodium Bicarbonate (Sodium Bicarb Adult 8.4% Syr) 50 meq 1X ONCE IV Last administered on 08/07/21at 12:41; Start 08/07/21 at 12:45; Stop 08/07/21 at 12:46; Status DC Sodium Bicarbonate (Sodium Bicarb Adult 8.4% Syr) 50 meq 1X ONCE IV Last administered on 08/07/21at 16:02; Start 08/07/21 at 15:45; Stop 08/07/21 at 15:46; Status DC Succinylcholine Chloride (Anectine) 200 mg 1X ONCE IV Last administered on 08/07/21at 12:42; Start 08/07/21 at 12:45; Stop 08/07/21 at 12:46; Status DC Vitals/I & O Vital Sign - Last 24 Hours 08/07/21 08/07/21 08/07/2115/22 12:30 12:30 12:45 13:00 Pulse 96 82 78 Resp 20 20 20 B/P (MAP) 224/88 82/36 108/44 Pulse Ox 96 98 96 O2 Delivery Mechanical Ventilator Ventilator Ventilator Ventilator 08/07/21 08/07/21 08/07/21 08/07/21 13:15 13:30 14:00 15:00 Pulse 77 76 79 80 Resp 20 20 20 20 B/P (MAP) 130/48 126/46 136/48 170/58 Pulse Ox 97 96 95 96 O2 Delivery Ventilator Ventilator Ventilator Ventilator 08/07/21 08/07/21 08/07/21 08/07/21 15:00 15:37 16:00 16:00 Temp 98.6 98.6 Pulse 78 Resp 20 B/P (MAP) 150/52 Pulse Ox 95 O2 Delivery Ventilator Mechanical Ventilator Ventilator 08/07/21 08/07/21 08/07/21 08/07/21 17:00 17:00 18:00 19:00 Pulse 79 80 80 Resp 20 20 20 B/P (MAP) 154/52 158/53 124/48 Pulse Ox 94 95 60 O2 Delivery Ventilator Ventilator Ventilator Ventilator 08/07/21 08/07/21 08/07/21 08/07/21 20:00 20:00 20:00 20:33 Temp 98.0 98.0 Pulse 81 Resp 20 B/P (MAP) 135/54 138/54 (82) Pulse Ox 60 100 O2 Delivery Mechanical Ventilator Ventilator Ventilator 08/07/21 08/07/21 08/07/21 08/07/21 21:00 21:38 22:00 22:17 Pulse 83 85 Resp 20 20 B/P (MAP) 116/49 103/53 Pulse Ox 60 60 60 60 O2 Delivery Ventilator Ventilator O2 Flow Rate 10.0 10.0 08/07/21 08/07/21 08/08/21 08/08/21 23:00 23:59 00:00 00:00 Temp 98.4 98.4 Pulse 86 88 Resp 20 21 B/P (MAP) 113/59 138/54 (82) 112/69 Pulse Ox 60 60 O2 Delivery Ventilator Ventilator Mechanical Ventilator 08/08/21 08/08/21 08/08/21 08/08/21 00:05 01:00 02:00 02:02 Pulse 88 96 Resp 21 20 B/P (MAP) 132/55 138/55 Pulse Ox 100 60 60 O2 Delivery Ventilator Ventilator Ventilator Ventilator 08/08/21 08/08/21 08/08/21 08/08/21 03:00 04:00 04:00 04:00 Temp 98.1 98.1 Pulse 88 82 Resp B/P (MAP) 135/57 126/62 Pulse Ox 60 60 O2 Delivery Ventilator Mechanical Ventilator Ventilator 08/08/21 08/08/21 08/08/21 08/08/21 04:48 05:00 06:00 07:00 Pulse 86 85 94 Resp 24 B/P (MAP) 142/57 128/62 110/44 Pulse Ox 60 60 60 O2 Delivery Ventilator Ventilator Ventilator Ventilator 08/08/21 08/08/21 08/08/21 08/08/21 08:00 08:00 08:00 08:03 Temp 99.8 99.8 Pulse 96 Resp 25 B/P (MAP) 105/40 105/40 (61) Pulse Ox 60 O2 Delivery Ventilator Mechanical Ventilator Ventilator 08/08/21 08/08/21 08/08/21 08/08/21 08:10 09:00 09:16 09:46 Pulse 98 Resp B/P (MAP) 130/46 Pulse Ox 100 40 O2 Delivery Ventilator Ventilator Ventilator 08/08/21 08/08/21 09:49 11:29 Resp 24 O2 Delivery Ventilator Ventilator Intake and Output 08/07/21 08/07/21 08/08/21 14:59 22:59 06:59 Intake Total 2050 ml 29 ml 97 ml Output Total 100 ml 350 ml 400 ml Balance 1950 ml -321 ml -303 ml Justifications for Admission Other Justification SLADE LOERA MD Aug 08, 2021 12:29
[2021-08-08] MEDS ORDERED: PANTOPRAZOLE IV PUSH 40 MG VIAL. IVP ONE (12:30)
[2021-08-08] MEDS ORDERED: DEXTROSE 50% 25 GM / 50ML DISP.SYRIN. IV PRN (12:30)
[2021-08-08] MEDS ORDERED: IV NORMAL SALINE 1000ML BAG 1,000 ML IV ONE (12:30)
[2021-08-08] MEDS ORDERED: IV DEXTROSE 5% 250 ML BAG. IV PRN (12:30)
--- NOTE | 2021-08-08 12:51 | PDOC ---
PROGRESS NOTES Date of Service DATE: 08/08/21 TIME: 12:48 Assessment Problems Medical Problems: (1) Acute on chronic renal failure Status: Acute (2) Closed right hip fracture Status: Acute (3) Contusion of right knee Status: Acute (4) Fall Status: Acute (5) Shoulder fracture, right Status: Acute Respiratory failure after surgery Mechanical fall, no evidence that he had a stroke or seizure Right hip and shoulder fracture, status post hip arthroplasty Emphysema, coronary artery disease, benign prostatic hypertrophy, peripheral vascular disease, history of previous bypass surgery, influenza A. Plan Holding on follow-up head CT or brain MRI depending on his course I left a message with the patient's 08/06, she did not reply Subjective None Objective Vital Signs Date Time Temp Pulse Resp B/P (MAP) Pulse Ox O2 Delivery O2 Flow Rate FiO2 08/08/21 11:29 Ventilator 08/08/21 09:49 24 08/08/21 09:00 98 130/46 40 08/08/21 08:00 99.8 99.8 08/07/21 22:17 10.0 Intake and Output 08/08/21 07:00 Intake Total 2176 ml Output Total 850 ml Balance 1326 ml IV Total 2176 ml Output Urine Total 750 ml Estimated Blood Loss 100 ml PHYSICAL EXAM On fentanyl, on ventilator. Stirs to voice PERRL. Pinpoint pupils EOMI. CN: no focal findings. Muscle tone: normal. Muscle strength: Not cooperative DTR: 1+ Plantar reflex: Silent Gait: not examined in bed. Sensory exam: Not cooperative Cerebellar: not cooperative Review of Relevant I have reviewed the following items valerie (where applicable) has been applied. Labs Laboratory Tests Test 08/06/21 17:09 08/06/21 20:51 08/07/21 04:40 08/07/21 08:25 Glucose (Fingerstick) 184 mg/dL (70-99) 186 mg/dL (70-99) 240 mg/dL (70-99) Sodium Level 141 mmol/L (136-145) Potassium Level 5.2 mmol/L (3.5-5.1) Chloride Level 108 mmol/L (98-107) Carbon Dioxide Level 21 mmol/L (21-32) Anion Gap 12 (6-14) Blood Urea Nitrogen 31 mg/dL (8-26) Creatinine 1.7 mg/dL (0.7-1.3) Estimated GFR (Cockcroft-Gault) 47.4 Glucose Level 272 mg/dL (70-99) Calcium Level 8.6 mg/dL (8.5-10.1) Test 08/07/21 09:22 08/07/21 10:47 08/07/21 11:45 08/07/21 11:48 Glucose (Fingerstick) 240 mg/dL (70-99) 194 mg/dL (70-99) 135 mg/dL (70-99) White Blood Count 11.4 x10^3/uL (4.0-11.0) Red Blood Count 2.80 x10^6/uL (4.30-5.70) Hemoglobin 7.8 g/dL (13.0-17.5) Hematocrit 24.5 % (39.0-53.0) Mean Corpuscular Volume 88 fL (79-100) Mean Corpuscular Hemoglobin 28 pg (25-35) Mean Corpuscular Hemoglobin Concent 32 g/dL (31-37) Red Cell Distribution Width 16.4 % (11.5-14.5) Platelet Count 177 x10^3/uL (140-400) Test 08/07/21 11:55 08/07/21 13:20 08/07/21 18:06 08/07/21 23:41 O2 Saturation 97 % (92-99) 99 % (92-99) Arterial Blood pH 7.23 (7.35-7.45) 7.29 (7.35-7.45) Arterial Blood pCO2 at Patient Temp 47 mmHg (35-46) 45 mmHg (35-46) Arterial Blood pO2 at Patient Temp 112 mmHg (65-108) 308 mmHg (65-108) Arterial Blood HCO3 20 mmol/L (21-28) 21 mmol/L (21-28) Arterial Blood Base Excess -8 mmol/L (-3-3) -6 mmol/L (-3-3) FiO2 60 100 Glucose (Fingerstick) 146 mg/dL (70-99) 117 mg/dL (70-99) Test 08/08/21 04:16 08/08/21 08:00 08/08/21 12:12 White Blood Count 6.7 x10^3/uL (4.0-11.0) Red Blood Count 2.56 x10^6/uL (4.30-5.70) Hemoglobin 7.2 g/dL (13.0-17.5) Hematocrit 22.6 % (39.0-53.0) Mean Corpuscular Volume 88 fL (79-100) Mean Corpuscular Hemoglobin 28 pg (25-35) Mean Corpuscular Hemoglobin Concent 32 g/dL (31-37) Red Cell Distribution Width 16.6 % (11.5-14.5) Platelet Count 127 x10^3/uL (140-400) Neutrophils (%) (Auto) 79 % (31-73) Lymphocytes (%) (Auto) 8 % (24-48) Monocytes (%) (Auto) 7 % (0-9) Eosinophils (%) (Auto) 5 % (0-3) Basophils (%) (Auto) 1 % (0-3) Neutrophils # (Auto) 5.3 x10^3/uL (1.8-7.7) Lymphocytes # (Auto) 0.5 x10^3/uL (1.0-4.8) Monocytes # (Auto) 0.5 x10^3/uL (0.0-1.1) Eosinophils # (Auto) 0.4 x10^3/uL (0.0-0.7) Basophils # (Auto) 0.1 x10^3/uL (0.0-0.2) Sodium Level 147 mmol/L (136-145) Potassium Level 5.0 mmol/L (3.5-5.1) Chloride Level 113 mmol/L (98-107) Carbon Dioxide Level 23 mmol/L (21-32) Anion Gap 11 (6-14) Blood Urea Nitrogen 42 mg/dL (8-26) Creatinine 2.1 mg/dL (0.7-1.3) Estimated GFR (Cockcroft-Gault) 37.1 Glucose Level 154 mg/dL (70-99) Calcium Level 8.2 mg/dL (8.5-10.1) O2 Saturation 99 % (92-99) Arterial Blood pH 7.34 (7.35-7.45) Arterial Blood pCO2 at Patient Temp 43 mmHg (35-46) Arterial Blood pO2 at Patient Temp 157 mmHg (65-108) Arterial Blood HCO3 23 mmol/L (21-28) Arterial Blood Base Excess -3 mmol/L (-3-3) FiO2 60% on vent Glucose (Fingerstick) 153 mg/dL (70-99) Laboratory Tests Test 08/07/21 13:20 08/07/21 18:06 08/07/21 23:41 08/08/21 04:16 O2 Saturation 99 % (92-99) Arterial Blood pH 7.29 (7.35-7.45) Arterial Blood pCO2 at Patient Temp 45 mmHg (35-46) Arterial Blood pO2 at Patient Temp 308 mmHg (65-108) Arterial Blood HCO3 21 mmol/L (21-28) Arterial Blood Base Excess -6 mmol/L (-3-3) FiO2 100 Glucose (Fingerstick) 146 mg/dL (70-99) 117 mg/dL (70-99) White Blood Count 6.7 x10^3/uL (4.0-11.0) Red Blood Count 2.56 x10^6/uL (4.30-5.70) Hemoglobin 7.2 g/dL (13.0-17.5) Hematocrit 22.6 % (39.0-53.0) Mean Corpuscular Volume 88 fL (79-100) Mean Corpuscular Hemoglobin 28 pg (25-35) Mean Corpuscular Hemoglobin Concent 32 g/dL (31-37) Red Cell Distribution Width 16.6 % (11.5-14.5) Platelet Count 127 x10^3/uL (140-400) Neutrophils (%) (Auto) 79 % (31-73) Lymphocytes (%) (Auto) 8 % (24-48) Monocytes (%) (Auto) 7 % (0-9) Eosinophils (%) (Auto) 5 % (0-3) Basophils (%) (Auto) 1 % (0-3) Neutrophils # (Auto) 5.3 x10^3/uL (1.8-7.7) Lymphocytes # (Auto) 0.5 x10^3/uL (1.0-4.8) Monocytes # (Auto) 0.5 x10^3/uL (0.0-1.1) Eosinophils # (Auto) 0.4 x10^3/uL (0.0-0.7) Basophils # (Auto) 0.1 x10^3/uL (0.0-0.2) Sodium Level 147 mmol/L (136-145) Potassium Level 5.0 mmol/L (3.5-5.1) Chloride Level 113 mmol/L (98-107) Carbon Dioxide Level 23 mmol/L (21-32) Anion Gap 11 (6-14) Blood Urea Nitrogen 42 mg/dL (8-26) Creatinine 2.1 mg/dL (0.7-1.3) Estimated GFR (Cockcroft-Gault) 37.1 Glucose Level 154 mg/dL (70-99) Calcium Level 8.2 mg/dL (8.5-10.1) Test 08/08/21 08:00 08/08/21 12:12 O2 Saturation 99 % (92-99) Arterial Blood pH 7.34 (7.35-7.45) Arterial Blood pCO2 at Patient Temp 43 mmHg (35-46) Arterial Blood pO2 at Patient Temp 157 mmHg (65-108) Arterial Blood HCO3 23 mmol/L (21-28) Arterial Blood Base Excess -3 mmol/L (-3-3) FiO2 60% on vent Glucose (Fingerstick) 153 mg/dL (70-99) Medications Current Medications Morphine Sulfate (Morphine Sulfate) 4 mg PRN Q15MIN PRN IV/SQ PAIN GREATER THAN 3/10 Last administered on 08/05/21at 22:48; Start 08/05/21 at 17:15; Stop 08/06/21 at 17:14; Status DC Ondansetron HCl (Zofran) 4 mg PRN Q8HRS PRN IVP NAUSEA/VOMITING; Start 08/05/21 at 22:30; Stop 08/06/21 at 22:29; Status DC Morphine Sulfate (Morphine Sulfate) 4 mg PRN Q2HR PRN IVP PAIN Last administered on 08/06/21at 13:45; Start 08/05/21 at 22:30; Stop 08/06/21 at 22:29; Status DC Oseltamivir Phosphate (Tamiflu) 30 mg BID PO ; Start 08/06/21 at 09:00; Stop 08/11/21 at 08:59 Amlodipine Besylate (Norvasc) 5 mg DAILY PO ; Start 08/06/21 at 09:00 Atorvastatin Calcium (Lipitor) 20 mg HS PO ; Start 08/06/21 at 21:00 Azithromycin (Zithromax) 250 mg BID PO ; Start 08/06/21 at 09:00; Status UNV Furosemide (Lasix) 40 mg DAILY PO ; Start 08/06/21 at 09:00; Stop 08/06/21 at 09:11; Status DC Metformin HCl (Glucophage) 500 mg BIDWMEALS PO ; Start 08/06/21 at 08:00 Sertraline HCl (Zoloft) 50 mg DAILY PO ; Start 08/06/21 at 09:00 Tamsulosin HCl (Flomax) 0.4 mg QHS PO ; Start 08/06/21 at 21:00 Cyanocobalamin (Vitamin B-12 Inj) 1,000 mcg WEEKLY IM ; Start 08/07/21 at 09:00 Isosorbide Mononitrate (Imdur) 120 mg DAILY PO ; Start 08/06/21 at 09:00 Fentanyl Citrate (Fentanyl 2ml Vial) 25 mcg PRN Q5MIN PRN IVP MILD PAIN 1-3; Start 08/07/21 at 06:00; Stop 08/07/21 at 11:39; Status DC Fentanyl Citrate (Fentanyl 2ml Vial) 50 mcg PRN Q5MIN PRN IVP MODERATE PAIN 4- 6; Start 08/07/21 at 06:00; Stop 08/07/21 at 11:39; Status DC Morphine Sulfate (Morphine Sulfate) 1 mg PRN Q10MIN PRN IVP SEVERE PAIN 7-10; Start 08/07/21 at 06:00; Stop 08/07/21 at 11:39; Status DC Ringer's Solution 1,000 ml @ 30 mls/hr Q24H IV ; Start 08/07/21 at 06:00; Stop 08/07/21 at 11:38; Status DC Hydromorphone HCl (Dilaudid) 0.5 mg PRN Q10MIN PRN IVP SEVERE PAIN 7-10, 2nd CHOICE; Start 08/07/21 at 06:00; Stop 08/07/21 at 11:39; Status DC Prochlorperazine Edisylate (Compazine) 5 mg PACU PRN PRN IVP NAUSEA, MRX1; Start 08/07/21 at 06:00; Stop 08/07/21 at 11:39; Status DC Potassium Chloride/Dextrose/ Sod Cl 1,000 ml @ 100 mls/hr Q10H IV Last administered on 08/07/21at 06:00; Start 08/06/21 at 10:00; Stop 08/07/21 at 13:39; Status DC Albuterol/ Ipratropium (Duoneb) 3 ml 1X ONCE NEB ; Start 08/06/21 at 09:15; Stop 08/06/21 at 09:16; Status DC Albuterol/ Ipratropium (Duoneb) 3 ml RTQID NEB Last administered on 08/08/21at 11:28; Start 08/06/21 at 12:00 Insulin Human Lispro (HumaLOG) 0-5 UNITS TIDWMEALS SQ ; Start 08/06/21 at 12:00; Stop 08/07/21 at 14:50; Status DC Dextrose (Dextrose 50%-Water Syringe) 12.5 gm PRN Q15MIN PRN IV SEE COMMENTS; Start 08/06/21 at 09:15 Dextrose (Iv Dextrose 5%) 250 ml PRN Q15MIN PRN IV SEE COMMENTS; Start 08/06/21 at 09:15; Status Cancel Cefazolin Sodium/ Dextrose 50 ml @ 100 mls/hr 1X ONCE IV Last administered on 08/07/21at 09:44; Start 08/07/21 at 06:00; Stop 08/07/21 at 06:29; Status DC Propofol (Diprivan) 200 mg STK-MED ONCE IV ; Start 08/07/21 at 08:50; Stop 08/07/21 at 08:51; Status DC Rocuronium Sidney (Zemuron) 50 mg STK-MED ONCE .ROUTE ; Start 08/07/21 at 08:51; Stop 08/07/21 at 08:51; Status DC Ondansetron HCl (Zofran) 4 mg STK-MED ONCE .ROUTE ; Start 08/07/21 at 08:54; Stop 08/07/21 at 08:54; Status DC Dexamethasone Sodium Phosphate (Decadron) 4 mg STK-MED ONCE .ROUTE ; Start 08/07/21 at 08:54; Stop 08/07/21 at 08:54; Status DC Fentanyl Citrate (Fentanyl 2ml Vial) 100 mcg STK-MED ONCE .ROUTE ; Start 08/07/21 at 08:54; Stop 08/07/21 at 08:54; Status DC Cefazolin Sodium/ Dextrose 50 ml @ As Directed STK-MED ONCE IV ; Start 08/07/21 at 09:10; Stop 08/07/21 at 09:10; Status DC Fentanyl Citrate (Fentanyl 2ml Vial) 25 mcg PRN Q5MIN PRN IVP MILD PAIN 1-3; Start 08/07/21 at 09:15; Stop 08/08/21 at 09:14; Status DC Fentanyl Citrate (Fentanyl 2ml Vial) 50 mcg PRN Q5MIN PRN IVP MODERATE PAIN 4- 6; Start 08/07/21 at 09:15; Stop 08/08/21 at 09:14; Status DC Morphine Sulfate (Morphine Sulfate) 1 mg PRN Q10MIN PRN IVP SEVERE PAIN 7-10; Start 08/07/21 at 09:15; Stop 08/08/21 at 09:14; Status DC Ringer's Solution 1,000 ml @ 30 mls/hr Q24H IV ; Start 08/07/21 at 09:15; Stop 08/07/21 at 21:14; Status DC Hydromorphone HCl (Dilaudid) 0.5 mg PRN Q10MIN PRN IVP SEVERE PAIN 7-10, 2nd CHOICE; Start 08/07/21 at 09:15; Stop 08/08/21 at 09:14; Status DC Prochlorperazine Edisylate (Compazine) 5 mg PACU PRN PRN IVP NAUSEA, MRX1; Start 08/07/21 at 09:15; Stop 08/08/21 at 09:14; Status DC Insulin Human Lispro (HumaLOG VIAL for OP,RR ONLY) 0-10 units PRN Q1HR PRN SQ PER PROTOCOL Last administered on 08/07/21at 09:27; Start 08/07/21 at 09:15; Stop 08/08/21 at 09:14; Status DC Sodium Chloride 1,000 ml @ 30 mls/hr Q24H IV ; Start 08/07/21 at 09:45; Stop 08/07/21 at 11:38; Status DC Sugammadex Sodium (Bridion) 200 mg 1X ONCE IVP ; Start 08/07/21 at 09:45; Stop 08/07/21 at 09:46; Status DC Tranexamic Acid 100 ml @ As Directed STK-MED ONCE .ROUTE Last administered on 08/07/21at 09:52; Start 08/07/21 at 09:35; Stop 08/07/21 at 09:35; Status DC Morphine Sulfate 5 mg/Ketorolac Tromethamine 30 mg/Ropivacaine 60 ml/Epinephrine HCl 0.5 mg/ Miscellaneous 63 ml @ 63 mls/hr 1X PERIOP ONCE INT ART Last administered on 08/07/21at 10:00; Start 08/07/21 at 10:00; Stop 08/07/21 at 10:59; Status DC Albumin Human 500 ml @ As Directed STK-MED ONCE IV ; Start 08/07/21 at 11:13; Stop 08/07/21 at 11:13; Status DC Phenylephrine HCl (Phillip-Synephrine Inj) 10 mg STK-MED ONCE .ROUTE ; Start 08/07/21 at 11:13; Stop 08/07/21 at 11:13; Status DC Phenylephrine HCl (PHENYLEPHRINE in 0.9% NACL PF) 1 mg STK-MED ONCE IV ; Start 08/07/21 at 11:13; Stop 08/07/21 at 11:14; Status DC Sodium Bicarbonate (Sodium Bicarb Adult 8.4% Syr) 50 meq STK-MED ONCE .ROUTE ; Start 08/07/21 at 12:09; Stop 08/07/21 at 12:09; Status DC Etomidate (Amidate) 20 mg STK-MED ONCE IV ; Start 08/07/21 at 12:11; Stop 08/07/21 at 12:11; Status DC Fentanyl Citrate 30 ml @ 2.5 mls/hr CONT PRN IV SEE PROTOCOL Last administered on 08/08/21at 09:16; Start 08/07/21 at 12:15 Midazolam HCl 100 ml @ 1 mls/hr CONT PRN IV SEE PROTOCOL Last administered on 08/08/21at 07:33; Start 08/07/21 at 12:15 Glycerin/ Hypromellose/ Polyethylene (Artificial Tears) 1 drop PRN Q1HR PRN OU DRY EYE; Start 08/07/21 at 12:15 Sodium Chloride 500 ml @ 500 mls/hr 1X PRN PRN IV SEE COMMENTS; Start 08/07/21 at 12:15 Atropine Sulfate (ATROPINE 0.5mg SYRINGE) 0.5 mg PRN Q5MIN PRN IV SEE COMMENTS; Start 08/07/21 at 12:15 Sodium Bicarbonate (Sodium Bicarb Adult 8.4% Syr) 50 meq 1X ONCE IV Last administered on 08/07/21at 12:41; Start 08/07/21 at 12:45; Stop 08/07/21 at 12:46; Status DC Etomidate (Amidate) 20 mg 1X ONCE IV Last administered on 08/07/21at 12:42; Start 08/07/21 at 12:45; Stop 08/07/21 at 12:46; Status DC Succinylcholine Chloride (Anectine) 200 mg 1X ONCE IV Last administered on 08/07/21at 12:42; Start 08/07/21 at 12:45; Stop 08/07/21 at 12:46; Status DC Insulin Human Lispro (HumaLOG) 0-5 UNITS Q6HRS SQ ; Start 08/07/21 at 18:00; Stop 08/08/21 at 12:26; Status DC Sodium Bicarbonate (Sodium Bicarb Adult 8.4% Syr) 50 meq 1X ONCE IV Last administered on 08/07/21at 16:02; Start 08/07/21 at 15:45; Stop 08/07/21 at 15:46; Status DC Sodium Chloride 1,000 ml @ 1,000 mls/hr 1X ONCE IV ; Start 08/08/21 at 12:30; Stop 08/08/21 at 13:29 Dextrose/Sodium Chloride 1,000 ml @ 100 mls/hr Q10H IV ; Start 08/08/21 at 12:30 Pantoprazole Sodium (PROTONIX VIAL for IV PUSH) 40 mg DAILYAC IVP ; Start 08/09/21 at 07:30 Pantoprazole Sodium (PROTONIX VIAL for IV PUSH) 40 mg 1X ONCE IVP ; Start 08/08/21 at 12:30; Stop 08/08/21 at 12:31; Status DC Insulin Human Lispro (HumaLOG) 0-7 UNITS TIDWMEALS SQ ; Start 08/08/21 at 17:00 Dextrose (Dextrose 50%-Water Syringe) 12.5 gm PRN Q15MIN PRN IV SEE COMMENTS; Start 08/08/21 at 12:30; Status UNV Dextrose (Iv Dextrose 5%) 250 ml PRN Q15MIN PRN IV SEE COMMENTS; Start 08/08/21 at 12:30 Active Scripts Active Azithromycin Tablet (Azithromycin) 250 Mg Tablet 1 Pkg PO UD 5 Days 2 the first day followed by 1 for days 2-5 Sertraline Hcl 50 Mg Tablet 50 Mg PO DAILY 30 Days Amlodipine Besylate 5 Mg Tablet 5 Mg PO DAILY 30 Days Lasix (Furosemide) 40 Mg Tablet 1 Tab PO DAILY Reported Cyanocobalamin Injection (Cyanocobalamin (Vitamin B-12)) 1,000 Mcg/1 Ml Vial 1 Ml IM WEEKLY Isosorbide Mononitrate Er (Isosorbide Mononitrate) 60 Mg Tab.er.24h 2 Tab PO DAILY Flomax (Tamsulosin Hcl) 0.4 Mg Cap.er.24h 0.4 Mg PO QHS Metformin Hcl Er (Metformin Hcl) 500 Mg Tab.er.24h 500 Mg PO BID 15 Days Atorvastatin Calcium 20 Mg Tablet 1 Tab PO HS Vitals/I & O Vital Sign - Last 24 Hours 08/07/21 08/07/21 08/07/21 08/07/21 13:00 13:15 13:30 14:00 Pulse 78 77 76 79 Resp 20 20 20 20 B/P (MAP) 108/44 130/48 126/46 136/48 Pulse Ox 96 97 96 95 O2 Delivery Ventilator Ventilator Ventilator Ventilator 08/07/21 08/07/21 08/07/21 08/07/21 15:00 15:00 15:37 16:00 Temp 98.6 98.6 Pulse 80 78 Resp 20 20 B/P (MAP) 170/58 150/52 Pulse Ox 96 95 O2 Delivery Ventilator Ventilator Mechanical Ventilator Ventilator 08/07/21 08/07/21 08/07/21 08/07/21 16:00 17:00 17:00 18:00 Pulse 79 80 Resp 20 20 B/P (MAP) 154/52 158/53 Pulse Ox 94 95 O2 Delivery Ventilator Ventilator Ventilator 08/07/21 08/07/21 08/07/21 08/07/21 19:00 20:00 20:00 20:00 Temp 98.0 98.0 Pulse 80 81 Resp 20 20 B/P (MAP) 124/48 135/54 138/54 (82) Pulse Ox 60 60 O2 Delivery Ventilator Mechanical Ventilator Ventilator 08/07/21 08/07/21 08/07/21 08/07/21 20:33 21:00 21:38 22:00 Pulse 83 85 Resp 20 20 B/P (MAP) 116/49 103/53 Pulse Ox 100 60 60 60 O2 Delivery Ventilator Ventilator Ventilator O2 Flow Rate 10.0 08/07/21 08/07/21 08/07/21 08/08/21 22:17 23:00 23:59 00:00 Temp 98.4 98.4 Pulse 86 88 Resp 20 21 B/P (MAP) 113/59 138/54 (82) 112/69 Pulse Ox 60 60 60 O2 Delivery Ventilator Ventilator O2 Flow Rate 10.0 08/08/21 08/08/21 08/08/21 08/08/21 00:00 00:05 01:00 02:00 Pulse 88 96 Resp 21 20 B/P (MAP) 132/55 138/55 Pulse Ox 100 60 60 O2 Delivery Mechanical Ventilator Ventilator Ventilator Ventilator 08/08/21 08/08/21 08/08/21 08/08/21 02:02 03:00 04:00 04:00 Pulse 88 Resp 21 B/P (MAP) 135/57 Pulse Ox 60 O2 Delivery Ventilator Ventilator Mechanical Ventilator 08/08/21 08/08/21 08/08/21 08/08/21 04:00 04:48 05:00 06:00 Temp 98.1 98.1 Pulse 82 86 85 Resp 20 B/P (MAP) 126/62 142/57 128/62 Pulse Ox 60 60 60 O2 Delivery Ventilator Ventilator Ventilator Ventilator 08/08/21 08/08/21 08/08/21 08/08/21 07:00 08:00 08:00 08:00 Temp 99.8 99.8 Pulse 94 96 Resp 24 25 B/P (MAP) 110/44 105/40 105/40 (61) Pulse Ox 60 60 O2 Delivery Ventilator Ventilator Mechanical Ventilator 08/08/21 08/08/21 08/08/21 08/08/21 08:03 08:10 09:00 09:16 Pulse 98 Resp 24 27 B/P (MAP) 130/46 Pulse Ox 100 40 O2 Delivery Ventilator Ventilator Ventilator 08/08/21 08/08/21 08/08/21 09:46 09:49 11:29 Resp 24 O2 Delivery Ventilator Ventilator Ventilator Intake and Output 08/07/21 08/07/21 08/08/21 15:00 23:00 07:00 Intake Total 2050 ml 29 ml 97 ml Output Total 100 ml 350 ml 400 ml Balance 1950 ml -321 ml -303 ml Justicifation of Admission Dx: Justifications for Admission: Justification of Admission Dx: Yes PATO BROWN MD Aug 08, 2021 12:51
[2021-08-08] MEDS: IV DEXTROSE 5% - 0.9 % NACL 1,000 ML IV SCH (13:13)
[2021-08-08] MEDS ORDERED: PROPOFOL 100 ML IV PRN (13:30)
--- NOTE | 2021-08-08 13:30 | NUR ---
Patient agitated, flailing arms. Attempted to calm by speaking to him without success. Breathing over the vent out of sync at times. Initiating Propofol gtt per Dr. Hill's verbal instruction when dc'ing versed this a.m.
[2021-08-08] MEDS ORDERED: INSULIN LISPRO 300 UNITS/3 ML VIAL. SQ SCH (17:00)
[2021-08-08] MEDS: TAMSULOSIN 0.4 MG CAP.ER.24H. PO SCH (19:15)
[2021-08-08] MEDS: ATORVASTATIN CALCIUM 20 MG TABLET PO SCH (19:16)
--- NOTE | 2021-08-08 19:18 | NUR ---
UNABLE TO OBTAIN PULSE OX DUE TO POOR PERFUSION. md'S AWARE
[2021-08-08] MEDS ORDERED: SODIUM BICARB ADULT 8.4% 50 MEQ/50 ML DISP.SYRIN. ONE (23:00)
[2021-08-08] MEDS ORDERED: EPINEPHrine SYRINGE 1 MG/10 ML SYRINGE. ONE (23:00)
[2021-08-09] MEDS: IV DEXTROSE 5% - 0.9 % NACL 1,000 ML IV SCH (00:45)
[2021-08-09 01:00] VITALS: BP 90/46
[2021-08-09] MEDS ORDERED: NOREPINEPHRINE VIAL 8 MG in IV DEXTROSE 5% 250 ML IV ONE (01:00)
--- NOTE | 2021-08-09 01:31 | PDOC5 ---
CODE REPORT CODE REPORT This physician responded to a CODE BLUE in the ICU, patient was found to be in asystole, patient was admitted to hospital recently after a fall, and right hip fracture, right shoulder fracture. Patient had right hip operated on. Patient was already intubated in the ICU. Per report patient was found in asystole at 1:07 AM, CODE BLUE activated. ACLS protocol was carried. No ROSC, patient was in asystole, discussed with the hot mill shearer , Dr. Lehman and his family physician,Dr. Gandhi. Patient was pronounced by this physician at 1:20 AM on August 09, 2021. KELSEY BUCKNER DO Aug 09, 2021 01:31
--- NOTE | 2021-08-09 01:46 | NUR ---
noted at 0055 a change in EKG strip, decrease in BP and pulse- Dr Carbajal called. 12 lead EKG ordered. Code called at 0107- see code sheet- TOD at 0121. had been called several messages left
--- NOTE | 2021-08-09 02:51 | NUR ---
i informed [facility] several times that I have been unable to contact . many meessages left. mtn called; saline ggt placed in eys. [facility] requests not to release body untill we hear back from them.
[2021-08-09] MEDS ORDERED: PANTOPRAZOLE IV PUSH 40 MG VIAL. IVP SCH (07:30)
--- NOTE | 2021-08-09 10:45 | PN ---
DATE: 08/09/2021 I did go into the room this morning to see him, he was doing much better yesterday, but unfortunately just past 1:00 am in the morning, he has passed. I did have a discussion with his family. Unfortunately, obviously this did occur. Medically, he was extremely unstable, but in any manner extremely unfortunate at this point. YOUSUF DR: Mindy TID: [id number]
--- NOTE | 2021-08-11 12:13 | PATHOLOGY ---
[facility] Accession Number: [id number] . 01 Material submitted: . hip - RIGHT HIP BONE/TISSUE. Modifiers: right . 01 Clinical history: . R HIP FX R HIP HEMIARTHROPLASTY . 02 Diagnosis: Femoral head and separate segments of bone, right hip hemiarthroplasty: - Focal fragmentation of bony trabeculae and recent intertrabecular hemorrhage consistent with fracture. - Degenerative arthritis. (JPM:ziggy; 08/11/2021) S 08/11/2021 0938 Local . 02 Comment: There is no evidence of malignancy. (JPM:ziggy; 08/11/2021) . 02 Electronically signed: . Trung Pena MD, Pathologist NPI- [id number] . 01 Gross description: . The specimen is received in formalin, labeled "Link Lloyd, R hip bone/tissue". Received is a femoral head with detached femoral neck fragments measuring 5.7 x 4.6 x 5.4 cm in aggregate dimensions. The articular surface is light barclay to dark barclay, smooth to roughened, and diffusely eroded as well as a pale barclay-longoria focal circular defect measuring 0.7 x 0.6 x 1.4 cm. The surface opposite of the articular surface is dark barclay and roughened, consistent with fracture. Sectioning reveals light barclay-yellow to dark brown and focally hemorrhagic cut surfaces with a dark brown empty cavity measuring 1.2 x 0.8 x 0.8 cm. The specimen is submitted representatively in cassettes A1 to A3, following decalcification.([facility]; 08/10/2021) [facility] 08/10/2021 1223 Local . 02 Pathologist provided ICD-10: M16.11 . 02 CPT . 895629, [id number] Specimen Comment: A courtesy copy of this report has been sent to [phone], [phone] Specimen Comment: [id number] Specimen Comment: Report sent to / DR LOERA Specimen Comment: A duplicate report has been generated due to demographic updates. Performed at: 01 [facility] [address], [place] [id number] MD Pancho Torres MD Phone: [phone] Performed at: 02 [facility] [address], [place] [id number] MD Trung Pena MD Phone: [phone]
--- NOTE | 2021-08-13 21:29 | PDOC ---
Provider Note Date of Service: DATE: 08/13/21 TIME: 21:28 Provider Note summary dictated.#[id number] Justifications for Admission Other Justification SLADE LOERA MD Aug 13, 2021 21:29
--- NOTE | 2021-08-14 03:43 | DS ---
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 The patient was sent to the hospital by ambulance as the patient was not able to ambulate and complains of pain in the hip and shoulder, questionable stroke. The patient was sent to the ER, evaluated in the ER, CT head, no stroke. CT of the hip shows right hip fracture. X-ray of the shoulder shows a right shoulder fracture. The patient was admitted to the hospital. The patient was seen by Orthopedic. The patient was seen by Cardiology as well as Neurology. Neurology does not feel he had a stroke and echocardiogram shows 50-60% with high PA pressure. The patient was taken to surgery on 08/07. The patient underwent right hip hemiarthroplasty and the patient was having problems after surgery, was admitted to the ICU, was on ventilator. Pulmonary was consulted who had known this patient before. Cardiology and Neurology were following. On 08/08 at night, the patient was found to have asystole. Code blue was called. ER physician responded to code blue. The patient did not survive and the patient was pronounced by ER physician at 1:20 in the morning on 08/09. FINAL DIAGNOSES: 1. Asystole. 2. Cardiac arrest, most probably myocardial infarction. 3. Severe atherosclerosis with history of leg bypass. 4. Mechanical fall resulting in right hip fracture, right shoulder fracture. 5. Severe emphysema. 6. Anemia. General debility, poor functional status and the patient from medical causes. [facility]/MODESTO/IDA DR: Elmer TID: [id number] LANE
== END 2021-08-09 01:21 | DRG 521 ==
LOC: ER 15:58 → 5 NORTH 20:00 → 1 WEST ICU 08-07 10:41
PROVIDERS: ADMIT Internal Medicine; ATTEND Internal Medicine
PROC: 0SRR0JZ Replacement of Right Hip Joint, Femoral Surface with Synthetic Substitute, Open Approach (ICD-10-PCS; principal; 2021-08-05)
PROC: 5A1945Z Respiratory Ventilation, 24-96 Consecutive Hours (ICD-10-PCS; 2021-08-05)
PROC: 0BH17EZ Insertion of Endotracheal Airway into Trachea, Via Natural or Artificial Opening (ICD-10-PCS; 2021-08-05)
DX: S72.011A Unspecified intracapsular fracture of right femur, initial encounter for closed fracture (principal); I21.9 Acute myocardial infarction, unspecified; J10.00 Influenza due to other identified influenza virus with unspecified type of pneumonia; J96.21 Acute and chronic respiratory failure with hypoxia; S42.91XA Fracture of right shoulder girdle, part unspecified, initial encounter for closed fracture; N17.9 Acute kidney failure, unspecified; I50.32 Chronic diastolic (congestive) heart failure; I13.0 Hypertensive heart and chronic kidney disease with heart failure and stage 1 through stage 4 chronic kidney disease, or unspecified chronic kidney disease; J43.9 Emphysema, unspecified; N18.30 Chronic kidney disease, stage 3 unspecified; D64.9 Anemia, unspecified; E11.22 Type 2 diabetes mellitus with diabetic chronic kidney disease; Z83.3 Family history of diabetes mellitus; Z82.49 Family history of ischemic heart disease and other diseases of the circulatory system; Z86.711 Personal history of pulmonary embolism; Z20.822 Contact with and (suspected) exposure to COVID-19; Z86.718 Personal history of other venous thrombosis and embolism; F17.210 Nicotine dependence, cigarettes, uncomplicated; I25.10 Atherosclerotic heart disease of native coronary artery without angina pectoris; M17.11 Unilateral primary osteoarthritis, right knee; N40.0 Benign prostatic hyperplasia without lower urinary tract symptoms; Z86.74 Personal history of sudden cardiac arrest; Z95.828 Presence of other vascular implants and grafts; I46.9 Cardiac arrest, cause unspecified; W18.39XA Other fall on same level, initial encounter; Y93.89 Activity, other specified; Y92.89 Other specified places as the place of occurrence of the external cause; Y99.9 Unspecified external cause status
CPT/HCPCS: 36415; 36600; 70450; 71045; 72125; 73030; 73502; 73560; 73700; 80048; 80053; 81001; 82805; 82962; 83735; 83880; 84484; 85025; 85027; 85610; 85730; 86850; 86900; 86901; 86920; 87426; 87804; 88305; 88311; 93005; 93306; 94002; 94003; 94640; 94760; A4213; A4223; A4565; A4657; A4930; A6223; A6402; A6550; C1776; C9113; J0171; J0330; J0690; J1100; J1815; J1885; J2250; J2270; J2370; J2405; J2704; J2795; J3010; J3480; J3490; J7030; J7042; J7060; P9045; U0003; 99285-25; C8929; G0378